=== PATIENT | female | born 1955 | race Caucasian/White ===

== ENCOUNTER 2018-01-16 02:40 | Outpatient (RCR) | payer OTHER, SELFPAY ==
[2018-01-16] MEDS: Normal Saline Flush 10 ML SYR IVP (07:30)
[2018-01-16 07:48] LABS: Abs Immature Grans 0.01 k/cumm (0.0-0.09); Absolute Basophil Count 0.02 k/cumm (0.0-0.2); Absolute Eosinophil Count 0.08 k/cumm (0.0-0.7); Absolute Lymphocyte Count 0.72 k/cumm (1.2-3.4); Absolute Monocyte Count 0.47 k/cumm (0.11-0.7); Absolute Neutrophil Count 2.67 k/cumm (1.2-6.7); Basophils % 0.5; HGB 9.9 g/dL (12.0-15.5); Immature Grans % 0.3; Lymphocytes % 18.1; Mean Corpuscular Hemoglobin 37.8 pg (27.0-33.0); Mean Corpuscular Volume 114.5 fL (80-95); Mean Platelet Volume 9.3 fL (8.0-11.0); Monocytes % 11.8; Neutrophils % 67.3; Platelet Count 138 x1000/uL (130-400); RBC 2.62 m/cumm (4.00-5.20); RBC Distribution Width 15.8 % (11.7-14.6); White Blood Cell Count 3.97 k/cumm (4.4-10.8)
[2018-01-16 08:02] LABS: ALT 15 U/L (12-78); AST 14 U/L (15-37); Albumin 3.5 g/dL (3.4-5.0); Alkaline Phosphatase 60 U/L (46-116); Anion Gap 6.9 mmol/L (3-11); BUN 7 mg/dL (7-18); Bilirubin, Total 0.7 mg/dL (0.2-1.0); CO2 29.1 mmol/L (21.0-32.0); Chloride 103 mmol/L (98-107); Glucose 114 mg/dL (70-100); Magnesium 1.8 mg/dL (1.8-2.4); Potassium 3.5 mmol/L (3.5-5.1); Sodium 139 mmol/L (136-145); Total Protein 7.7 g/dL (6.4-8.2)
[2018-01-16 08:19] LABS: Anisocytosis 1+; Diff Comment RBC Morph Reviewed; Macrocytosis 1+; Polychromasia Present
[2018-01-16 08:20] LABS: Basophilic Stippling Present
[2018-02-06] MEDS: Normal Saline Flush 10 ML SYR IVP (07:35)
[2018-02-06 08:09] LABS: Abs Immature Grans 0.01 k/cumm (0.0-0.09); Absolute Basophil Count 0.01 k/cumm (0.0-0.2); Absolute Eosinophil Count 0.01 k/cumm (0.0-0.7); Absolute Monocyte Count 0.62 k/cumm (0.11-0.7); Absolute Neutrophil Count 1.49 k/cumm (1.2-6.7); Basophils % 0.3; Eosinophils % 0.3; HCT 25.2 % (36.0-46.0); HGB 8.3 g/dL (12.0-15.5); Lymphocytes % 27.2; Mean Corp. HGB Concentration 32.9 g/dL (32.0-36.0); Mean Corpuscular Hemoglobin 38.4 pg (27.0-33.0); Mean Corpuscular Volume 116.7 fL (80-95); Mean Platelet Volume 9.4 fL (8.0-11.0); Monocytes % 21.1; Neutrophils % 50.8; Platelet Count 101 x1000/uL (130-400); RBC 2.16 m/cumm (4.00-5.20); RBC Distribution Width 16.4 % (11.7-14.6); White Blood Cell Count 2.94 k/cumm (4.4-10.8)
[2018-02-06 08:20] LABS: ALT 14 U/L (12-78); AST 15 U/L (15-37); Albumin 3.4 g/dL (3.4-5.0); Alkaline Phosphatase 51 U/L (46-116); Anion Gap 5.9 mmol/L (3-11); BUN 9 mg/dL (7-18); Bilirubin, Total 0.6 mg/dL (0.2-1.0); CO2 30.1 mmol/L (21.0-32.0); CREATININE 0.75 mg/dL (0.55-1.02); Calcium 8.6 mg/dL (8.5-10.1); Chloride 103 mmol/L (98-107); Glucose 107 mg/dL (70-100); Magnesium 1.4 mg/dL (1.8-2.4); Potassium 3.7 mmol/L (3.5-5.1); Sodium 139 mmol/L (136-145); Total Protein 7.5 g/dL (6.4-8.2)
[2018-02-06 08:47] LABS: Basophilic Stippling Present; Diff Comment Diff Reviewed; Hypochromasia 2+; Macrocytosis 2+; Polychromasia Present
[2018-02-06 08:48] LABS: Poikilocytes 2+
== END 2018-02-10 ==
LOC: INF 02-06 02:40
PROVIDERS: PCP Family Medicine; Visit Provider Internal Medicine Medical Oncology
DX: C37 Malignant neoplasm of thymus (principal); Z45.2 Encounter for adjustment and management of vascular access device
CPT/HCPCS: 36591; 80053; 83735; 85025

== ENCOUNTER 2018-02-27 01:03 | Outpatient (RCR) | payer OTHER, SELFPAY ==
[2018-02-27] MEDS: Normal Saline Flush 10 ML SYR IVP (07:30)
[2018-02-27 07:55] LABS: Abs Immature Grans 0.01 k/cumm (0.0-0.09); Absolute Basophil Count 0.01 k/cumm (0.0-0.2); Absolute Eosinophil Count 0.01 k/cumm (0.0-0.7); Absolute Lymphocyte Count 0.75 k/cumm (1.2-3.4); Absolute Monocyte Count 0.76 k/cumm (0.11-0.7); Absolute Neutrophil Count 1.57 k/cumm (1.2-6.7); Basophils % 0.3; Eosinophils % 0.3; Immature Grans % 0.3; Lymphocytes % 24.1; Mean Corpuscular Hemoglobin 39.8 pg (27.0-33.0); Mean Corpuscular Volume 120.5 fL (80-95); Monocytes % 24.4; Neutrophils % 50.6; Platelet Count 100 x1000/uL (130-400); RBC 1.66 m/cumm (4.00-5.20); RBC Distribution Width 17.4 % (11.7-14.6); White Blood Cell Count 3.11 k/cumm (4.4-10.8)
[2018-02-27 07:58] LABS: ALT 14 U/L (12-78); AST 13 U/L (15-37); Albumin 3.4 g/dL (3.4-5.0); Alkaline Phosphatase 54 U/L (46-116); Anion Gap 8.2 mmol/L (3-11); BUN 9 mg/dL (7-18); Bilirubin, Total 0.5 mg/dL (0.2-1.0); CO2 28.8 mmol/L (21.0-32.0); CREATININE 0.81 mg/dL (0.55-1.02); Calcium 8.8 mg/dL (8.5-10.1); Chloride 103 mmol/L (98-107); Glucose 111 mg/dL (70-100); Magnesium 1.2 mg/dL (1.8-2.4); Potassium 3.8 mmol/L (3.5-5.1); Sodium 140 mmol/L (136-145); Total Protein 7.4 g/dL (6.4-8.2)
[2018-02-27 08:06] LABS: HGB 6.6 g/dL (12.0-15.5)
== END 2018-03-12 23:59 | disposition home or self-care (01) ==
LOC: INF 01:03
PROVIDERS: PCP Family Medicine; Visit Provider Internal Medicine Medical Oncology
DX: C37 Malignant neoplasm of thymus (principal); Z45.2 Encounter for adjustment and management of vascular access device
CPT/HCPCS: 36591; 80053; 83735; 85025

== ENCOUNTER 2018-03-27 01:27 | Outpatient (RCR) | payer OTHER, SELFPAY ==
[2018-03-17] MEDS: Normal Saline Flush 10 ML SYR IVP (07:20)
[2018-03-17] MEDS: Heparin 500 UNITS/5 ML SYRINGE IV (07:20)
[2018-03-17 07:51] LABS: Abs Immature Grans 0.01 k/cumm (0.0-0.09); Absolute Basophil Count 0.01 k/cumm (0.0-0.2); Absolute Eosinophil Count 0.02 k/cumm (0.0-0.7); Absolute Lymphocyte Count 0.78 k/cumm (1.2-3.4); Absolute Monocyte Count 0.71 k/cumm (0.11-0.7); Absolute Neutrophil Count 2.85 k/cumm (1.2-6.7); Basophils % 0.2; Eosinophils % 0.5; Immature Grans % 0.2; Lymphocytes % 17.8; Mean Corp. HGB Concentration 33.5 g/dL (32.0-36.0); Mean Corpuscular Hemoglobin 37.9 pg (27.0-33.0); Mean Platelet Volume 10.1 fL (8.0-11.0); Monocytes % 16.2; Neutrophils % 65.1; RBC 1.61 m/cumm (4.00-5.20); RBC Distribution Width 19.9 % (11.7-14.6); White Blood Cell Count 4.38 k/cumm (4.4-10.8)
[2018-03-17 08:03] LABS: ALT 17 U/L (12-78); AST 13 U/L (15-37); Albumin 3.3 g/dL (3.4-5.0); Alkaline Phosphatase 59 U/L (46-116); Anion Gap 8.5 mmol/L (3-11); BUN 9 mg/dL (7-18); Bilirubin, Total 0.5 mg/dL (0.2-1.0); CO2 28.5 mmol/L (21.0-32.0); CREATININE 0.67 mg/dL (0.55-1.02); Calcium 8.9 mg/dL (8.5-10.1); Chloride 102 mmol/L (98-107); Glucose 119 mg/dL (70-100); Magnesium 1.5 mg/dL (1.8-2.4); Potassium 3.8 mmol/L (3.5-5.1); Sodium 139 mmol/L (136-145); Total Protein 7.3 g/dL (6.4-8.2)
[2018-03-17 08:09] LABS: HGB 6.1 g/dL (12.0-15.5)
[2018-03-17 08:10] LABS: Anisocytosis 2+; Basophilic Stippling Present; HCT 18.2 % (36.0-46.0); Platelet Count 67 x1000/uL (130-400)
[2018-03-17 08:11] LABS: Diff Comment Diff Reviewed; Macrocytosis 2+; Microcytosis 1+; Polychromasia Present
[2018-03-27 08:30] LABS: Abs Immature Grans 0.01 k/cumm (0.0-0.09); Absolute Basophil Count 0.01 k/cumm (0.0-0.2); Absolute Eosinophil Count 0.03 k/cumm (0.0-0.7); Absolute Lymphocyte Count 0.73 k/cumm (1.2-3.4); Absolute Monocyte Count 0.66 k/cumm (0.11-0.7); Absolute Neutrophil Count 1.93 k/cumm (1.2-6.7); Basophils % 0.3; Eosinophils % 0.9; HCT 24.6 % (36.0-46.0); HGB 7.9 g/dL (12.0-15.5); Immature Grans % 0.3; Lymphocytes % 21.7; Mean Corp. HGB Concentration 32.1 g/dL (32.0-36.0); Mean Corpuscular Hemoglobin 35.9 pg (27.0-33.0); Mean Corpuscular Volume 111.8 fL (80-95); Monocytes % 19.6; Neutrophils % 57.2; Platelet Count 115 x1000/uL (130-400); RBC Distribution Width 21.8 % (11.7-14.6); White Blood Cell Count 3.37 k/cumm (4.4-10.8)
[2018-03-27 08:54] LABS: ALT 16 U/L (12-78); AST 14 U/L (15-37); Albumin 3.4 g/dL (3.4-5.0); Alkaline Phosphatase 58 U/L (46-116); Anion Gap 9.2 mmol/L (3-11); BUN 12 mg/dL (7-18); Bilirubin, Total 0.6 mg/dL (0.2-1.0); CO2 28.8 mmol/L (21.0-32.0); CREATININE 0.77 mg/dL (0.55-1.02); Calcium 8.6 mg/dL (8.5-10.1); Chloride 102 mmol/L (98-107); Glucose 129 mg/dL (70-100); Potassium 3.4 mmol/L (3.5-5.1); Sodium 140 mmol/L (136-145); Total Protein 7.5 g/dL (6.4-8.2)
[2018-03-27 09:34] LABS: Magnesium 1.5 mg/dL (1.8-2.4)
[2018-03-27] MEDS: Normal Saline Flush 10 ML SYR IVP (15:01)
== END 2018-04-12 23:59 | disposition home or self-care (01) ==
LOC: INF 01:27
PROVIDERS: PCP Family Medicine; Visit Provider Internal Medicine Medical Oncology
DX: C37 Malignant neoplasm of thymus (principal); Z45.2 Encounter for adjustment and management of vascular access device
CPT/HCPCS: 36591; 80053; 83735; 85025

== ENCOUNTER 2018-05-12 00:50 | Outpatient (RCR) | payer OTHER, SELFPAY ==
[2018-05-12 08:06] LABS: Abs Immature Grans 0.02 k/cumm (0.0-0.09); Absolute Basophil Count 0.01 k/cumm (0.0-0.2); Absolute Eosinophil Count 0.05 k/cumm (0.0-0.7); Absolute Lymphocyte Count 0.66 k/cumm (1.2-3.4); Absolute Monocyte Count 0.46 k/cumm (0.11-0.7); Absolute Neutrophil Count 2.45 k/cumm (1.2-6.7); Basophils % 0.3; Eosinophils % 1.4; HCT 21.2 % (36.0-46.0); HGB 7.2 g/dL (12.0-15.5); Immature Grans % 0.5; Lymphocytes % 18.1; Mean Corpuscular Hemoglobin 37.5 pg (27.0-33.0); Mean Corpuscular Volume 110.4 fL (80-95); Mean Platelet Volume 11.1 fL (8.0-11.0); Monocytes % 12.6; Neutrophils % 67.1; Platelet Count 66 x1000/uL (130-400); RBC 1.92 m/cumm (4.00-5.20); White Blood Cell Count 3.65 k/cumm (4.4-10.8)
[2018-05-12 08:11] LABS: ALT 19 U/L (12-78); AST 15 U/L (15-37); Albumin 3.3 g/dL (3.4-5.0); Alkaline Phosphatase 53 U/L (46-116); Anion Gap 8.3 mmol/L (3-11); BUN 11 mg/dL (7-18); Bilirubin, Total 0.5 mg/dL (0.2-1.0); CO2 29.7 mmol/L (21.0-32.0); CREATININE 0.66 mg/dL (0.55-1.02); Calcium 8.8 mg/dL (8.5-10.1); Chloride 101 mmol/L (98-107); Glucose 119 mg/dL (70-100); Magnesium 1.1 mg/dL (1.8-2.4); Potassium 3.5 mmol/L (3.5-5.1); Sodium 139 mmol/L (136-145); Total Protein 7.5 g/dL (6.4-8.2)
[2018-05-12] MEDS: Heparin 500 UNITS/5 ML SYRINGE IV (08:24)
[2018-05-12] MEDS: Normal Saline Flush 10 ML SYR IVP (08:24)
[2018-05-12 09:35] LABS: Anisocytosis 3+; Diff Comment RBC Morph Reviewed; Macrocytosis 2+; Polychromasia Present
== END 2018-05-12 23:59 | disposition home or self-care (01) ==
LOC: INF 00:50
PROVIDERS: Internal Medicine Hematology & Oncology; PCP Family Medicine; Visit Provider Internal Medicine Medical Oncology
DX: C37 Malignant neoplasm of thymus (principal); Z45.2 Encounter for adjustment and management of vascular access device
CPT/HCPCS: 36591; 80053; 83735; 85025

== ENCOUNTER 2018-06-09 01:37 | Outpatient (RCR) | payer OTHER, SELFPAY ==
[2018-05-22] MEDS: Normal Saline Flush 10 ML SYR IVP (07:12)
[2018-05-22 07:23] LABS: Abs Immature Grans 0.01 k/cumm (0.0-0.09); Absolute Basophil Count 0.01 k/cumm (0.0-0.2); Absolute Eosinophil Count 0.02 k/cumm (0.0-0.7); Absolute Lymphocyte Count 0.73 k/cumm (1.2-3.4); Absolute Monocyte Count 0.51 k/cumm (0.11-0.7); Absolute Neutrophil Count 1.71 k/cumm (1.2-6.7); Basophils % 0.3; Eosinophils % 0.7; Immature Grans % 0.3; Lymphocytes % 24.4; Mean Corp. HGB Concentration 33.3 g/dL (32.0-36.0); Mean Corpuscular Hemoglobin 35.4 pg (27.0-33.0); Mean Corpuscular Volume 106.3 fL (80-95); Mean Platelet Volume 9.7 fL (8.0-11.0); Monocytes % 17.1; Neutrophils % 57.2; Platelet Count 101 x1000/uL (130-400); RBC 2.54 m/cumm (4.00-5.20); White Blood Cell Count 2.99 k/cumm (4.4-10.8)
[2018-05-22 07:36] LABS: ALT 20 U/L (12-78); AST 14 U/L (15-37); Albumin 3.4 g/dL (3.4-5.0); Alkaline Phosphatase 50 U/L (46-116); Anion Gap 9.9 mmol/L (3-11); BUN 18 mg/dL (7-18); Bilirubin, Total 0.6 mg/dL (0.2-1.0); CO2 29.1 mmol/L (21.0-32.0); CREATININE 0.86 mg/dL (0.55-1.02); Calcium 9.1 mg/dL (8.5-10.1); Chloride 101 mmol/L (98-107); Glucose 111 mg/dL (70-100); Potassium 3.9 mmol/L (3.5-5.1); Sodium 140 mmol/L (136-145); Total Protein 7.5 g/dL (6.4-8.2)
[2018-05-22 07:56] LABS: Anisocytosis 3+; Diff Comment Agrees w/ Instrument; Macrocytosis 2+; Nucleated RBC 1 /100WBC; Polychromasia Present
[2018-05-22 08:57] LABS: Magnesium 1.5 mg/dL (1.8-2.4)
== END 2018-06-12 23:59 | disposition home or self-care (01) ==
LOC: INF 01:37
PROVIDERS: Internal Medicine Hematology & Oncology; PCP Family Medicine; Visit Provider Internal Medicine Hematology & Oncology
DX: C37 Malignant neoplasm of thymus (principal); Z45.2 Encounter for adjustment and management of vascular access device
CPT/HCPCS: 36591; 80053; 83735; 85025

== ENCOUNTER 2018-08-04 00:58 | Outpatient (RCR) | payer OTHER, SELFPAY | END 2018-08-10 23:59 | disposition home or self-care (01) | LOC: INF 00:58 | PROVIDERS: PCP Family Medicine; Visit Provider Internal Medicine Hematology & Oncology | DX: R69 Illness, unspecified (principal) ==

== ENCOUNTER 2019-11-09 10:29 | Outpatient (REF) | payer OTHER, SELFPAY ==
[2019-11-09 10:43] LABS: Abs Immature Grans 0.03 k/cumm (0.0-0.09); Absolute Basophil Count 0.01 k/cumm (0.0-0.2); Absolute Eosinophil Count 0.09 k/cumm (0.0-0.7); Absolute Lymphocyte Count 0.88 k/cumm (1.2-3.4); Absolute Monocyte Count 0.66 k/cumm (0.11-0.7); Absolute Neutrophil Count 3.91 k/cumm (1.2-6.7); Basophils % 0.2; Eosinophils % 1.6; HCT 33.2 % (36.0-46.0); HGB 10.3 g/dL (12.0-15.5); Immature Grans % 0.5 %; Lymphocytes % 15.8; Mean Corpuscular Hemoglobin 31.2 pg (27.0-33.0); Mean Corpuscular Volume 100.6 fL (80-95); Monocytes % 11.8; Neutrophils % 70.1; Platelet Count 193 x1000/uL (130-400); RBC Distribution Width 17.8 % (11.7-14.6); White Blood Cell Count 5.58 k/cumm (4.4-10.8)
== END 2019-11-09 10:49 ==
LOC: LBN 10:29
PROVIDERS: PCP Family Medicine; Visit Provider Internal Medicine Hematology & Oncology
DX: C37 Malignant neoplasm of thymus (principal)
CPT/HCPCS: 85025

== ENCOUNTER 2021-05-01 12:26 | Outpatient (RCR) | payer MEDICARE, SELFPAY ==
[2021-05-01] MEDS: Normal Saline Flush 10 ML SYR IVP (12:37)
[2021-05-01] MEDS: Heparin 500 UNITS/5 ML SYRINGE IVP (12:38)
[2021-05-01 12:42] LABS: Abs Immature Grans 0.06 10^3/uL (0.0-0.06); Absolute Basophil Count 0.03 10^3/uL (0.0-0.2); Absolute Eosinophil Count 0.04 10^3/uL (0.0-0.7); Absolute Lymphocyte Count 0.81 10^3/uL (1.2-3.4); Absolute Monocyte Count 1.01 10^3/uL (0.1-0.8); Absolute Neutrophil Count 4.48 10^3/uL (1.2-6.7); Basophils % 0.5; Eosinophils % 0.6; HCT 36.7 % (36.0-46.0); Immature Grans % 0.9; Lymphocytes % 12.6; MCH 37.5 pg (27.0-33.0); MCHC 35.4 % (32.0-36.0); MCV 105.8 fL (80-95); MPV 10.3 fL (8.0-11.0); Monocytes % 15.7; Neutrophils % 69.7; Nucleated RBC 0 %; Platelet Count 197 10^3/uL (130-400); RBC 3.47 10^6/uL (3.93-5.22); RDW 13.9 % (11.7-14.6); RDW-SD 54.6 fL; Reticulocyte 2.5 % (0.5-2.4); WBC 6.43 10^3/uL (4.4-10.8)
[2021-05-01 12:50] LABS: Anion Gap 9.1 mmol/L (3-11); BUN 56 mg/dL (7-18); CO2 28.9 mmol/L (21.0-32.0); Calcium 8.8 mg/dL (8.5-10.1); Chloride 93 mmol/L (98-107); Estimated GFR 25.16 (mL/min/1.73m2); Glucose 98 mg/dL (74-106); Potassium 3.2 mmol/L (3.5-5.1); Sodium 131 mmol/L (136-145)
[2021-05-01 16:20] LABS: Bilirubin, Direct 0.3 mg/dL (0.0-0.2); Bilirubin, Total 0.7 mg/dL (0.2-1.0)
== END 2021-05-12 23:59 | disposition home or self-care (01) ==
LOC: INF 12:26
PROVIDERS: PCP Family Medicine; Visit Provider Internal Medicine Hematology & Oncology
DX: C37 Malignant neoplasm of thymus (principal); D75.1 Secondary polycythemia; E80.6 Other disorders of bilirubin metabolism; Z45.2 Encounter for adjustment and management of vascular access device
CPT/HCPCS: 36591; 80048; 82668; 82247; 82248; 85025; 85045

== ENCOUNTER 2021-08-21 03:22 | Outpatient (RCR) | payer MEDICARE, SELFPAY ==
[2021-08-21] MEDS: Heparin 500 UNITS/5 ML SYRINGE (14:38)
[2021-08-21] MEDS: Normal Saline Flush 10 ML SYR IVP (14:38)
[2021-08-21 14:46] LABS: Abs Immature Grans 0.01 10^3/uL (0.0-0.06); Absolute Basophil Count 0.04 10^3/uL (0.0-0.2); Absolute Eosinophil Count 0.29 10^3/uL (0.0-0.7); Absolute Lymphocyte Count 1.14 10^3/uL (1.2-3.4); Absolute Monocyte Count 0.67 10^3/uL (0.1-0.8); Basophils % 0.9; Eosinophils % 6.7; HCT 45.5 % (36.0-46.0); HGB 15.9 g/dL (11.2-15.7); Immature Grans % 0.2; Lymphocytes % 26.2; MCH 36.1 pg (27.0-33.0); MCHC 34.9 % (32.0-36.0); MCV 103.2 fL (80-95); Monocytes % 15.4; Neutrophils % 50.6; Nucleated RBC 0 %; Platelet Count 144 10^3/uL (130-400); RBC 4.41 10^6/uL (3.93-5.22); RDW 13.6 % (11.7-14.6); RDW-SD 52.3 fL; WBC 4.35 10^3/uL (4.4-10.8)
[2021-08-21 15:10] LABS: ALT 15 U/L (14-59); AST 30 U/L (15-37); Alkaline Phosphatase 64 U/L (46-116); Anion Gap 9.1 mmol/L (3-11); BUN 15 mg/dL (7-18); Bilirubin, Total 1.1 mg/dL (0.2-1.0); CO2 25.9 mmol/L (21.0-32.0); Chloride 97 mmol/L (98-107); Estimated GFR 55.82 (mL/min/1.73m2); FREE T4 1.31 ng/dL (0.76-1.46); Glucose 89 mg/dL (74-106); Magnesium 1.5 mg/dL (1.8-2.4); Potassium 3.7 mmol/L (3.5-5.1); Sodium 132 mmol/L (136-145); TSH 15.28 uIU/mL (0.36-3.74); Total Protein 6.7 g/dL (6.4-8.2)
[2021-08-25 16:34] LABS: Erythropoietin 52.3 mIU/mL (2.6 - 18.5)
== END 2021-09-10 23:59 | disposition home or self-care (01) ==
LOC: INF 03:22
PROVIDERS: PCP Family Medicine; Visit Provider Internal Medicine Hematology & Oncology
DX: E03.9 Hypothyroidism, unspecified (principal); C37 Malignant neoplasm of thymus; D75.1 Secondary polycythemia; E83.42 Hypomagnesemia; Z45.2 Encounter for adjustment and management of vascular access device
CPT/HCPCS: 36591; 80053; 82668; 83735; 84439; 84443; 85025

== ENCOUNTER 2024-03-09 01:35 | Outpatient (RCR) | payer MEDICARE, SELFPAY ==
--- OUTSIDE RECORDS SUMMARY | 2024-02-24 01:11 | XMS_ITS | Continuity of Care Document ---
Author Organization [facility] Address [address] [place] [address] Care Team Providers Care Catholic Priest Name Role Phone Jerzy Vidal Primary Care Physician [phone] Encounter [facility] Date(s): 03/09/22 - 03/09/[address] [address] Discharge Disposition: Home or Self Care Attending Physician: Shon Schneider Admitting Physician: Shon Schneider Referring Physician: Shon Schneider Allergies, Adverse Reactions, Alerts Substance Reaction Severity Status penicillins Unknown Active CARBOplatin Unknown Active Immunizations Given and Recorded Vaccine Date Status Refusal Reason SARS-CoV-2 (COVID-19) mRNA-1273 vaccine 09/26/20 R ecorded SARS-CoV-2 (COVID-19) mRNA-1273 vaccine 08/28/20 R ecorded pneumococcal 23-polyvalent vaccine 05/17/14 Record ed tetanus/diphth/pertuss (Tdap) adult/adol 03/08/14 Recorded influenza virus vaccine, inactivated 03/08/14 Victor M rded Medications DilTIAZem (Eqv-Tiazac) 240 mg/24 hours oral capsule, extended release 240 mg = 1 cap, Oral, Daily Start Date: 11/25/21 Status: Ordered Eliquis 5 mg oral tablet 5 mg = 1 tab, Oral, BID Start Date: 11/25/21 Status: Ordered levothyroxine 150 mcg (0.15 mg) oral tablet 150 mcg = 1 tab, Oral, Daily Start Date: 11/25/21 Status: Ordered magnesium oxide 400 mg (241.3 mg elemental magnesium) oral tablet 400 mg = 1 tab, Oral, TID Start Date: 11/25/21 Status: Ordered Problem List Condition Effective Dates Status Health Status Inform ant Bradycardia(Confirmed) Active Chronic atrial fibrillation(Confirmed) Active Constipation(Confirmed) Active Dyspnea(Confirmed) Active Hypertensive disorder(Confirmed) Active Hypokalemia(Confirmed) 03/09/18 Active Hypomagnesemia(Confirmed) 03/09/18 Active Lump in left breast(Confirmed) Active 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 Morbid obesity(Confirmed) Active Pain(Confirmed) Active 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/04/19 Active Snoring(Confirmed) Active Procedures Procedure Date Related Diagnosis Body Site Status Thoracentesis 1 08/18/20 Completed Biopsy of breast 03/24/17 Complete d Laparoscopy 2 06/12/01 Completed Elective delivery 3 Completed Hernia repair umbilical 4 Completed 1550 mL clear yellow fluid removed from left side 2Exploratory Laparotomy w/ Appendectomy and Drainage of Intraabdominal Abscess 3X2 71215 Social History Social History Type Response Smoking Status Smoking tobacco use: Never tobacco user;Never entered on: 11/23/21 Sex Female Patient Care team information Personnel Name: Jerzy Vidal MD Address: Address: [address]
--- OUTSIDE RECORDS SUMMARY | 2024-02-24 01:11 | XMS_ITS | Continuity of Care Document ---
Author Organization [facility] Address [address] [place] [address] Care Team Providers Care Preschool Head Teacher Name Role Phone Jerzy Vidal Primary Care Physician [phone] Encounter [facility] Date(s): 09/15/22 - 09/15/[address] [address] Discharge Disposition: Home or Self Care Attending Physician: Shon Schneider MD Admitting Physician: Shon Schneider MD Referring Physician: Shon Schneider MD Allergies, Adverse Reactions, Alerts Substance Reaction Severity [...] 240 mg/24 hours oral capsule, extended release 1 cap, Oral, Daily, # 90 cap, 0 Refill(s), Pharmacy: [facility] #[id number], 173, cm, 04/12/22 13:04:00 EDT, Height/Length Dosing, 108, kg, 04/12/22 13:04:00 EDT, Weight Dosing Start Date: 08/09/22 Status: Ordered Eliquis 5 mg oral tablet 1 tab, Oral, BID, # 180 tab, 0 Refill(s), Pharmacy: [facility] #[id number], 173, cm, 04/12/22 13:04:00 EDT, Height/Length Dosing, 108, kg, 04/12/22 13:04:00 EDT, Weight Dosing Start Date: 08/09/22 Status: Ordered levothyroxine 150 mcg (0.15 mg) oral tablet 150 mcg = 1 tab, Oral, Daily Start Date: 11/25/21 Status: Ordered magnesium oxide 400 mg (241.3 mg elemental magnesium) oral tablet 400 mg = 1 tab, Oral, TID Start Date: 11/25/21 Status: Ordered potassium acetate 0 Refill(s) Start Date: 04/02/22 Status: Ordered Problem List Condition Confirmation Course Effective Dates Status H ealth Status Informant Bradycardia Confirmed Active Chronic atrial fibrillation Confirmed Active Constipation Confirmed Active Dyspnea Confirmed Active Hypertensive disorder Confirmed Active Hypokalemia Confirmed 03/09/18 Active Hypomagnesemia Confirmed 03/09/18 Active Lump in left breast Confirmed Active 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 Morbid obesity Confirmed Active Pain Confirmed Active 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 Snoring Confirmed Active Procedures Procedure Date Related Diagnosis Body Site Status Thoracentesis 04/11/22 Completed Thoracentesis 1 08/18/20 Completed Biopsy of breast 03/24/17 Complete d Laparoscopy 2 06/12/01 Completed Elective delivery 3 Completed Hernia repair umbilical 4 Completed Venous access device maintenance 5 Completed 1550 mL clear yellow fluid removed from left side 2Exploratory Laparotomy w/ Appendectomy and Drainage of Intraabdominal Abscess 3X2 [id number] 5POWER PORT Results Laboratory List Name Date .Manual Differential ([facility]) 09/15/22 CBC w/ Diff 09/15/22 Comprehensive Metabolic Panel 09/15/22 Free T4 09/15/22 Magnesium Level 09/15/22 Thyroid Stimulating Hormone 09/15/22 Most recent to oldest [Reference Range]: 1 WBC [5.0-10.0 x10^3/mcL] 5.5 x10^3/mcL (09/15/22 11:55 AM) RBC [4.1-5.3 x10^6/mcL] 3.2 x10^6/mcL *LOW* (09/15/22 11:55 AM) Segs Man [40-75 %] 78 % *HI* (09/15/22 11:55 AM) Lymph Man [20-50 %] 8 % *LOW* (09/15/22 11: AM) Slope Man 13 % *NA* (09/15/22 AM) Eos Man 0 % *NA* (09/15/22: AM) BUN [7-18 mg/dL] 26 mg/dL *HI* (09/15/22 11: AM) Glucose Level [74-106 mg/dL] 107 mg/dL *HI* (09/15/22 11: AM) Potassium Level [3.5-5.1 mmol/L] 3.1 mmo l/L *LOW* (09/15/22: AM) MCV [80.0-96.0] 107.8 *HI* (09/15/22: AM) RBC Morph Abnormal (09/15/22:) T4 Free [0.76-1.46 ng/dL] 1.39 ng/dL (09/15/22 AM) AST [15-37 unit/L] 21 unit/L (09/15/22: AM) ALT [14-59 unit/L] 11 unit/L *LOW* (09/15/22: AM) MCHC [31.0-35.0 g/dL] 29.0 g/dL *LOW* (09/15/22 11: AM) Sodium Level [136-145 mmol/L] 137 mmol/L (09/15/22 11: AM) Hct [37.0-47.0 %] 34.5 % *LOW* (09/15/22 AM) Calcium Level [8.5-10.1 mg/dL] 9.4 mg/dL (09/15/22 11: AM) Albumin Level [3.4-5.0 g/dL] 3.1 g/dL *LOW* (09/15/22 11: AM) Protein Total [6.4-8.2 g/dL] 8.6 g/dL *HI* (09/15/22 11: AM) MCH [26.0-32.0 pg] 31.3 pg (09/15/22 11: AM) Magnesium Level [1.8-2.4 mg/dL] 1.7 mg/d L *LOW* (09/15/22 11:55 AM) Bilirubin Total [0.2-1.0 mg/dL] 1.2 mg/d L *HI* (09/15/22 11:55 AM) Hgb [12.0-16.0 g/dL] 10.0 g/dL *LOW* (09/15/22 11: AM) Alk Phos [46-146 unit/L] 66 unit/L (09/15/22 11:55 AM) Band Man [0-5 %] 0 % (09/15/22 11: AM) Polychrom Small (09/15/22: AM) Platelets [130-450 x10^3/mcL] 168 x10^3/ mcL (09/15/22 11:55 AM) CO2 [21-32 mmol/L] 31 mmol/L (09/15/22 11: AM) TSH [0.358-3.740 mcIntlUnit/mL] 5.418 mc IntlUnit/mL *HI* (09/15/22 11:55 AM) eGFR Non-AA [>=60] 47 *LOW* (09/15/22 11:55 AM) eGFR AA [>=60] 47 *LOW* (09/15/22 11:55 AM) Chloride Level [98-107 mmol/L] 98 mmol/L (09/15/22 11:55 AM) RDW-CV [11.7-17.0 %] 19.9 % *HI* (09/15/22 11:55 AM) Ovalocytes Rare (09/15/22 11:55 AM) Stomatocyte Rare (09/15/22 11:55 AM) Abs Neut Man 4.3 x10^3/mcL *NA* (09/15/22 11: AM) Anisocyte Small (09/15/22 11: AM) Creatinine Level [0.55-1.02 mg/dL] 1.27 mg/dL *HI* (09/15/22 11:55 AM) Baso Man [0-1 %] 1 % (09/15/22 11: AM) Social History Social History Type Response Smoking Status Smoking tobacco use: Never tobacco user;Never entered on: 04/08/22 Sex Female Patient Care team information Care Team Personnel Name: Jerzy Vidal MD Position: Physician Member Role: Informed Provider Address: Address: [address] Care Team Related Persons Name: FRANCOIS PIERRE Address: Home Name: FRANCOIS PIERRE Address: Home Name: CESAR KNOX Address: Home
--- OUTSIDE RECORDS SUMMARY | 2024-02-24 01:11 | XMS_ITS | Continuity of Care Document ---
Author Organization [facility] Address [address] [place] [address] Care Team Providers Care Manager Academic Name Role Phone Jerzy Vidal Primary Care Physician Encounter [facility] Date(s): 10/22/22 - 10/22/[address] [address] Discharge Disposition: Home or Self Care Attending Physician: Shon Schneider MD Admitting Physician: Shon Schneider MD Referring Physician: Shon Schneider MD Allergies, Adverse Reactions, Alerts Substance Reaction Severity Status penicillins Unknown Active CARBOplatin Unknown Active Assessment and Plan Diagnostic Tests Pending * Haptoglobin [facility] 10/22/22 Immunizations Given and Recorded Vaccine Date Status Refusal Reason SARS-CoV-2 (COVID-19) mRNA-1273 vaccine 09/26/20 R ecorded SARS-CoV-2 (COVID-19) mRNA-1273 vaccine 08/28/20 R ecorded pneumococcal 23-polyvalent vaccine 05/17/14 Record ed tetanus/diphth/pertuss (Tdap) adult/adol 03/08/14 Recorded influenza virus vaccine, inactivated 03/08/14 Victor M rded Medications DilTIAZem (Eqv-Tiazac) 240 mg/24 hours oral capsule, extended release 1 cap, Oral, Daily, # 90 cap, 0 Refill(s), Pharmacy: [facility] #[id number], 173, cm, 04/12/22 13:04:00 EDT, Height/Length Dosing, 108, kg, 04/12/22 13:04:00 EDT, Weight Dosing Start Date: 08/09/22 Status: Ordered Eliquis 5 mg oral tablet 1 tab, Oral, BID, # 180 tab, 0 Refill(s), Pharmacy: [facility] #[id number], 173, cm, 04/12/22 13:04:00 EDT, Height/Length [...] Appendectomy and Drainage of Intraabdominal Abscess 3X2 64045 5POWER PORT Results Laboratory List Name Date Reticulocyte Count Automated 10/22/22 Most recent to oldest [Reference Range]: 1 Reticulocyte % [0.5-2.4 %] <0.2 % *LOW* (10/22/22 10:57 AM) Social History Social History Type Response Smoking Status Smoking tobacco use: Never tobacco user;Never entered on: 04/08/22 Sex Female Patient Care team information Care Team Personnel Name: Jerzy Vidal MD Position: Physician Member Role: Informed Provider Address: Address: [address] Care Team Related Persons Name: FRANCOIS PIERRE Name: CESAR KNOX
--- OUTSIDE RECORDS SUMMARY | 2024-02-24 01:11 | XMS_ITS | Continuity of Care Document ---
Author Organization [facility] Address [address] [place] [address] Care Team Providers Care Is Analyst Name Role Phone Jerzy Vidal Primary Care Physician Encounter [facility] Date(s): 11/17/22 - 11/17/[address] [id number] Encounter Diagnosis Anemia(Discharge Diagnosis) - 11/17/22 Discharge Disposition: Home or Self Care Attending Physician: Gavi Cardoso MD Admitting Physician: Gavi Cardoso MD Referring Physician: Shon Schneider MD Allergies, Adverse Reactions, Alerts Substance Reaction Severity Status penicillins Unknown Active CARBOplatin Unknown Active Assessment and Plan Extracted from: Title:Clinical Document Author:Shirin Almonte te:11/18/22 Diagnosis: 1. Anemia Comment: Diagnosis: Abnormal laboratory findings Comment: Future Appointments Immunizations Given and Recorded Vaccine Date Status Refusal Reason SARS-CoV-2 (COVID-19) mRNA-1273 vaccine 09/26/20 R ecorded SARS-CoV-2 (COVID-19) mRNA-1273 vaccine 08/28/20 R ecorded pneumococcal 23-polyvalent vaccine 05/17/14 Record ed tetanus/diphth/pertuss (Tdap) adult/adol 03/08/14 Recorded influenza virus vaccine, inactivated 03/08/14 Victor M rded Medications aMILoride 5 mg oral tablet 0 Refill(s) Start Date: 11/17/22 Status: Ordered DilTIAZem (Eqv-Tiazac) 240 mg/24 hours oral capsule, extended release 1 cap, Oral, Daily, # 90 cap, 0 Refill(s), Pharmacy: [facility], 173, cm, 04/12/22 13:04:00 EDT, Height/Length Dosing, 108, kg, 04/12/22 13:04:00 EDT, Weight Dosing Start Date: 08/09/22 Status: Ordered Eliquis 5 mg oral tablet See Instructions, TAKE ONE TABLET BY MOUTH TWICE A DAY, # 180 tab, 0 Refill(s), Pharmacy: [facility], 173, cm, 10/22/22 10:35:00 EDT, Height/Length Dosing, 117, kg, 10/22/22 10:35:00 EDT, Weight Dosing Start Date: 11/14/22 Status: Ordered Eliquis 5 mg oral tablet 1 tab, Oral, BID, # 180 tab, 0 Refill(s), Pharmacy: [facility], 173, cm, 04/12/22 13:04:00 EDT, Height/Length Dosing, 108, kg, 04/12/22 13:04:00 EDT, Weight Dosing Start Date: 08/09/22 Status: Ordered furosemide 80 mg oral tablet 0 Refill(s) Start Date: 11/17/22 Status: Ordered levothyroxine 150 mcg (0.15 mg) [...] Effective Dates Status H ealth Status Informant Aortic valve stenosis Confirmed 2022 Active Bradycardia Confirmed Active Chronic atrial fibrillation Confirmed [...] Appendectomy and Drainage of Intraabdominal Abscess [id number] [id number] 5POWER PORT Results Laboratory List Name Date ABO/Rh 11/17/22 Antibody Screen Gel 11/17/22 Red Blood Cells 11/17/22 .Manual Differential ([facility]) 11/17/22 CBC w/ Diff 11/17/22 Comprehensive Metabolic Panel 11/17/22 Magnesium Level 11/17/22 Most recent to oldest [Reference Range]: 1 WBC [5.0-10.0 x10^3/mcL] 7.0 x10^3/mcL (11/17/22 12:13 PM) RBC [4.1-5.3 x10^6/mcL] 2.0 x10^6/mcL *LOW* (11/17/22 12:13 PM) Segs Man [40-75 %] 82 % *HI* (11/17/22 12:13 PM) Lymph Man [20-50 %] 13 % *LOW* (11/17/22 12:13 PM) [place] Man [2-15 %] 0 % *LOW* (11/17/22 12:13 PM) Eos Man [1-6 %] 4 % (11/17/22 12:13 PM) BUN [7-18 mg/dL] 18 mg/dL (11/17/22 12:13 PM) ABO/Rh Type A POS *Unknown* (11/17/22 3:24 PM) Glucose Level [74-106 mg/dL] 87 mg/dL (11/17/22 12:13 PM) Potassium Level [3.5-5.1 mmol/L] 3.3 mmo l/L *LOW* (11/17/22 12:13 PM) MCV [80.0-96.0 fL] 101.5 fL *HI* (11/17/22 12:13 PM) RBC Morph Abnormal (11/17/22 12:13 PM) AST [15-37 unit/L] 19 unit/L (11/17/22 12:13 PM) ALT [14-59 unit/L] 14 unit/L (11/17/22 12:13 PM) MCHC [31.0-35.0 g/dL] 30.9 g/dL *LOW* (11/17/22 12:13 PM) Sodium Level [136-145 mmol/L] 135 mmol/L *LOW* (11/17/22 12: PM) Hct [37.0-47.0 %] 20.4 % 1 *CRIT* (11/17/22 12:13 PM) Hypochromia Rare (11/17/22 12: PM) Calcium Level [8.5-10.1 mg/dL] 8.7 mg/dL (11/17/22: PM) Albumin Level [3.4-5.0 g/dL] 2.3 g/dL *LOW* (11/17/22 12: PM) Protein Total [6.4-8.2 g/dL] 7.9 g/dL (11/17/22: PM) MCH [26.0-32.0 pg] 31.3 pg (11/17/22 12: PM) Magnesium Level [1.8-2.4 mg/dL] 1.3 mg/d L *LOW* (11/17/22: PM) Bilirubin Total [0.2-1.0 mg/dL] 0.8 mg/d L (11/17/22 12:13 PM) Hgb [12.0-16.0 g/dL] 6.3 g/dL 2 *CRIT* (11/17/22 12:13 PM) Alk Phos [46-146 unit/L] 62 unit/L (11/17/22 12:13 PM) Band Man [0-5 %] 0 % (11/17/22 12: PM) Platelets [130-450 x10^3/mcL] 118 x10^3/ mcL *LOW* (11/17/22 12:13 PM) CO2 [21-32 mmol/L] 34 mmol/L *HI* (11/17/22 12: PM) eGFR Non-AA [>=60] 60 (11/17/22 12:13 PM) eGFR AA [>=60] 60 (11/17/22 12:13 PM) Chloride Level [98-107 mmol/L] 95 mmol/L *LOW* (11/17/22 12:13 PM) RBC Product Ready Done (11/17/22 3:24 PM) RDW-CV [11.5-14.5 %] 21.8 % *HI* (11/17/22 12:13 PM) Slide Review Man Diff (11/17/22 12:13 PM) Abs Neut Man 5.7 x10^3/mcL *NA* (11/17/22 12:13 PM) Anisocyte Small (11/17/22 12:13 PM) Creatinine Level [0.55-1.02 mg/dL] 1.03 mg/dL *HI* (11/17/22 12:13 PM) Antibody Screen Gel Negative ABSC (11/17/22 3:24 PM) Baso Man [0-1 %] 1 % (11/17/22 12:13 PM) 1Result Comment: Called to and verbally verified by Roxana Machuca at 11/17/2022 12:44:01 EDT. 2Result Comment: Called to and verbally verified by Roxana Machuca at 11/17/2022 12:44:01 EDT. Vital Signs Most recent to oldest [Reference Range]: 1 2 3 Temperature Temporal Artery [36-38 Deg C] 36.2 Deg C (11/17/22 10:12 PM) 36.5 Deg C (11/17/22 9:09 PM) 36.2 Deg C (11/17/22 8:03 PM) Temperature Temporal Artery (DegF) [97.3-100 Deg F] 97.16 Deg F *LOW* (11/17/22 8:03 PM) 97.7 Deg F (11/17/22 7:53 PM) 97.52 Deg F (11/17/22 4:55 PM) Peripheral Pulse Rate [60-100 bpm] 78 bpm (11/17/22 10:12 PM) 66 bpm (11/17/22 9:09 PM) 84 bpm (11/17/22 8:46 PM) Heart Rate Monitored [60-100 bpm] 83 bpm (11/17/22 7:53 PM) 80 bpm (11/17/22 7:16 PM) 75 bpm (11/17/22 6:25 PM) Respiratory Rate [12-24 br/min] 17 br/min (11/17/22 10:12 PM) 20 br/min (11/17/22 9:09 PM) 21 br/min (11/17/22 8:46 PM) Blood Pressure [90-140/60-90 mmHg] 105/61mmHg (11/17/22 10:12 PM) 105/68mmHg (11/17/22 9:09 PM) 96/54mmHg (11/17/22 8:46 PM) Weight Dosing 117.00 kg (11/17/22 3:06 PM) Weight Estimated 117.00 kg (11/17/22 2:23 PM) Height/Length Dosing 173.000 cm (11/17/22 3:06 PM) Height/Length Estimated 173.000 cm (11/17/22 2:23 PM) Social History Social History Type Response Smoking Status Smoking tobacco use: Never tobacco user;Never entered on: 04/08/22 Sex Female Hospital Discharge Instructions Patient Education 11/17/2022 21:03:58 Anemia Anemia Anemia is a condition in which there is not enough red blood cells or hemoglobin in the blood. Hemoglobin is a substance in red blood cells that carries oxygen. When you do not have enough red blood cells or hemoglobin (are anemic), your body cannot get enoughoxygen and your organs may not work properly. As a result, you may feel very tired or have other problems. What are the causes? Common causes of anemia include: ??? Excessive bleeding. Anemia can be caused by excessive bleeding inside or outside the body, including bleeding from the intestines or from heavy menstrual periods in females. ??? Poor nutrition. ??? Long-lasting (chronic) kidney, thyroid, and liver disease. ??? Bone marrow disorders, spleen problems, and blood disorders. ??? Cancer and treatments for cancer. ??? HIV (human immunodeficiency virus) and AIDS (acquired immunodeficiency syndrome). ??? Infections, medicines, and autoimmune disorders that destroy red blood cells. What are the signs or symptoms? Symptoms of this condition include: ??? Minor weakness. ??? Dizziness. ??? Headache, or difficulties concentrating and sleeping. ??? Heartbeats that feel irregular or faster than normal (palpitations). ??? Shortness of breath, especially with exercise. ??? Pale skin, lips, and nails, or cold hands and feet. ??? Indigestion and nausea. Symptoms may occur suddenly or develop slowly. If your anemia is mild, you may not have symptoms. How is this diagnosed? This condition is diagnosed based on blood tests, your medical history, and a physical exam. In some cases, a test may be needed in which cells are removed from the soft tissue inside of a bone and looked at under a microscope (bone marrow biopsy). Your health care provider may also check your stool (feces) for blood and may do additional testing to look for the cause of your bleeding. Other tests may include: ??? Imaging tests, such as a CT scan or MRI. ??? A procedure to see inside your esophagus and stomach (endoscopy). ??? A procedure to see inside your colon and rectum (colonoscopy). How is this treated? Treatment for this condition depends on the cause. If you continue to lose a lot of blood, you may need to be treated at a hospital. Treatment may include: ??? Taking supplements of iron, vitamin B12, or folic acid. ??? Taking a hormone medicine (erythropoietin) that can help to stimulate red blood cell growth. ??? Having a blood transfusion. This may be needed if you lose a lot of blood. ??? Making changes to your diet. ??? Having surgery to remove your spleen. Follow these instructions at home: ??? Take [id number]-ise-gfvyykd and prescription medicines only as told by your health care provider. ??? Take supplements only as told by your health care provider. ??? Follow any diet instructions that you were given by your health care provider. ??? Keep all follow-up visits as told by your health care provider. This is important. Contact a health care provider if: ??? You develop new bleeding anywhere in the body. Get help right away if: ??? You are very weak. ??? You are short of breath. ??? You have pain in your abdomen or chest. ??? You are dizzy or feel faint. ??? You have trouble concentrating. ??? You have bloody stools, black stools, or tarry stools. ??? You vomit repeatedly or you vomit up blood. These symptoms may represent a serious problem that is an emergency. Do not wait to see if the symptoms will go away. Get medical help right away. Call your local emergency services (911 in the [place] Do not drive yourself to the hospital. Summary ??? Anemia is a condition in which you do not have enough red blood cells or enough of a substance in your red blood cells that carries oxygen (hemoglobin). ??? Symptoms may occur suddenly or develop slowly. ??? If your anemia is mild, you may not have symptoms. ??? This condition is diagnosed with blood tests, a medical history, and a physical exam. Other tests may be needed. ??? Treatment for this condition depends on the cause of the anemia. This information is not intended to replace advice given to you by your health care provider. Make sure you discuss any questions you have with your health care provider. Document Revised: 05/06/2020 Document Reviewed: 05/06/2020 [employer] Patient Education ?? 2021 [employer]. Follow Up Care 11/17/2022 14:23:32 With:Follow up with primary care provider Address: When:1 to 2 weeks Physician Emergency department Note * Noni Walker MD: PERFORM Event Display: ED Note Physician Authored Date: [id number] BRAYAN PIERRE :1955 Age:67 years Sex:Female Visit Date:11/17/2022 Primary Care Physician: Jerzy Vidal MD Signout received from Dr. Chavez patient??sent in by oncologist due to anemia patient has received2??units of packed red blood cells??and is ready to go patient without complaints currently.?? Patient will return for any concerns. Diagnosis anemia Electronically Signed on 11/17/22 10:05 PM Noni Walker MD * Josh Chavez MD: PERFORM Event Display: ED Note Physician Authored Date: [id number] BRAYAN PIERRE :1955 Age:67 years Sex:Female Visit Date:11/17/2022 Primary Care Physician: Jerzy Vidal MD Basic Information Time Seen: Josh Chavez MD / 11/17/2022 15:02 Chief Complaint Pt sent in from oncologist at [facility] for 2 units pRBC d/t hemoglobin of 6.3 today. Pt denies SOB, dizziness, or weakness. 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 History Of Present Illness: ?? Comes for transfusion.Patient??recently discharged from [facility]. ??On chemotherapy.?? Hemoglobin low. Review of Systems: Negative for complaints in all body systems. Physical Exam Vitals & Measurements T:??36.2?C ??(Temporal Artery)?? HR:??84??(Peripheral)?? RR:??21?? BP:??96/54?? SpO2:??96%?? HT:??173.000??cm?? WT:??117.00??kg??(Estimated)?? Pain Score:??0?? O2 Therapy:??Room air?? No acute distress. ??Respirations normal. ??Chest auscultation shows an irregular rhythm with a systolic ejection murmur.?? Chest sounds are normal. Medical Decision Making: Complexity is minimal. ??Data complexity is minimal.?? Management risk are??minimal.?? MDM coding??98908. Procedure No Qualifying Data Assessment/Plan Diagnosis is??anemia secondary to chemotherapy. Medication Reconciliation Unchanged aMILoride (aMILoride 5 mg oral tablet) ?? apixaban (Eliquis 5 mg oral tablet)1 tab Oral (given by mouth) 2 times a day. Refills: 0. ?? apixaban (Eliquis 5 mg oral tablet)TAKE ONE TABLET BY MOUTH TWICE A DAY. Refills: 0. ?? dilTIAZem (DilTIAZem (Eqv-Tiazac) 240 mg/24 hours oral capsule, extended release)1 Capsules Oral (given by mouth) every day. Refills: 0. ?? furosemide (furosemide 80 mg oral tablet) ?? levothyroxine (levothyroxine 150 mcg (0.15 mg) oral tablet)1 tab Oral (given by mouth) every day. ?? magnesium oxide (magnesium oxide 400 mg (241.3 mg elemental magnesium) oral tablet)1 tab Oral (given by mouth) 3 times a day. ?? 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 Employment/School disability Home/Environment Lives with Children, Sons children. Substance Use Never Tobacco Never tobacco user Tobacco Use:. Never Smokeless Tobacco use:. Family History Arthritis: Father and Sister. Cancer: Mother. Hydrocephalus: Father (Dx at 77). Lab Results Transfusion Medicine Testing?? LATEST RESULTS?? HISTORICAL RESULTS?? ABO/Rh Type?? 11/17/22 15:24?? A POS?? 10/22/22?? A POS?? Antibody Screen Gel?? 11/17/22 15:24?? Negative ABSC?? 10/22/22?? Negative ABSC?? RBC Product Ready?? 11/17/22 15:24?? Done?? 10/22/22?? Done? Crossmatch Summary?? LATEST RESULTS?? XM AHG Gel Interp?? 11/17/22 15:24?? Compatible? Electronically Signed on 11/17/22 09:04 PM Josh Chavez MD Emergency department Discharge instructions * Noni Walker MD: PERFORM Event Display: ED Discharge Information Authored Date: [id number] BRAYAN PIERRE :1955 Age:67 years Sex:Female Visit Date:11/17/2022 Primary Care Physician: Jerzy Vidal MD Discharge Instructions We would like to thank you for allowing us to assist you with your healthcare needs. The following includes patient education materials and information regarding your injury/illness. Diagnosis from Today's Visit Anemia Discharge Vitals Temperature??(Temporal Artery) 97.7 ??F (36.5 ??C) Heart Rate??(Peripheral) 66 Respiratory Rate?? 20 Blood Pressure?? 105/68?? Height?? 68.11 in (173.000 cm) Weight??(Estimated) 257.98 lb (117.00 kg) Allergies CARBOplatin penicillins What to Do Next Instructions from Your Care Team You have received 2 units of packed red blood cells.?? Follow-up with your??primary healthcare providers. ?? Josh Chavez MD You Need to Schedule the Following Appointments Follow Up with??Follow up with primary care provider When:??Within 1 to 2 weeks Upcoming Scheduled Appointments Tuesday 2:00 PM EDT ?? You were treated today on an emergency basis; it may be swain to contact your primary care provider to notify them of your visit today. You may have been referred to your regular doctor or a specialist, please follow up as instructed. If your condition worsens or you can't get in to see the doctor, contact the Emergency Department. Medications What How Much When Instructions Next Dose Unchanged aMILoride (aMILoride 5 mg oral tablet) Unchanged apixaban (Eliquis 5 mg oral tablet) 1 tab Oral (given by mouth) 2 times a day Unchanged apixaban (Eliquis 5 mg oral tablet) See instructions TAKE ONE TABLET BY MOUTH TWICE A DAY ?? Unchanged dilTIAZem (DilTIAZem (Eqv-Tiazac) 240 mg/ 24 hours oral capsule, extended release) 1 Capsules Oral (given by mouth) Every day Unchanged furosemide (furosemide 80 mg oral tablet) Unchanged levothyroxine (levothyroxine 150 mcg (0.15 mg) oral tablet) 1 tab Oral (given by mouth) Every day Unchanged magnesium oxide (magnesium oxide 400 mg (241.3 mg elemental magnesium) oral tablet) 1 tab Oral (given by mouth) 3 times a day Unchanged potassium acetate Education Materials Anemia Anemia is a condition in which there is not enough red blood cells or hemoglobin in the blood. Hemoglobin is a substance in red blood cells that carries oxygen. When you do not have enough red blood cells or hemoglobin (are anemic), your body cannot get enoughoxygen and your organs may not work properly. As a result, you may feel very tired or have other problems. What are the causes? Common causes of anemia include: ? Excessive bleeding. Anemia can be caused by excessive bleeding inside or outside the body, including bleeding from the intestines or from heavy menstrual periods in females. ? Poor nutrition. ? Long-lasting (chronic) kidney, thyroid, and liver disease. ? Bone marrow disorders, spleen problems, and blood disorders. ? Cancer and treatments for cancer. ? HIV (human immunodeficiency virus) and AIDS (acquired immunodeficiency syndrome). ? Infections, medicines, and autoimmune disorders that destroy red blood cells. What are the signs or symptoms? Symptoms of this condition include: ? Minor weakness. ? Dizziness. ? Headache, or difficulties concentrating and sleeping. ? Heartbeats that feel irregular or faster than normal (palpitations). ? Shortness of breath, especially with exercise. ? Pale skin, lips, and nails, or cold hands and feet. ? Indigestion and nausea. Symptoms may occur suddenly or develop slowly. If your anemia is mild, you may not have symptoms. How is this diagnosed? This condition is diagnosed based on blood tests, your medical history, and a physical exam. In some cases, a test may be needed in which cells are removed from the soft tissue inside of a bone and looked at under a microscope (bone marrow biopsy). Your health care provider may also check your stool (feces) for blood and may do additional testing to look for the cause of your bleeding. Other tests may include: ? Imaging tests, such as a CT scan or MRI. ? A procedure to see inside your esophagus and stomach (endoscopy). ? A procedure to see inside your colon and rectum (colonoscopy). How is this treated? Treatment for this condition depends on the cause. If you continue to lose a lot of blood, you may need to be treated at a hospital. Treatment may include: ? Taking supplements of iron, vitamin B12, or folic acid. ? Taking a hormone medicine (erythropoietin) that can help to stimulate red blood cell growth. ? Having a blood transfusion. This may be needed if you lose a lot of blood. ? Making changes to your diet. ? Having surgery to remove your spleen. Follow these instructions at home: ? Take pmqg-lic-aufnnmw and prescription medicines only as told by your health care provider. ? Take supplements only as told by your health care provider. ? Follow any diet instructions that you were given by your health care provider. ? Keep all follow-up visits as told by your health care provider. This is important. Contact a health care provider if: ? You develop new bleeding anywhere in the body. Get help right away if: ? You are very weak. ? You are short of breath. ? You have pain in your abdomen or chest. ? You are dizzy or feel faint. ? You have trouble concentrating. ? You have bloody stools, black stools, or tarry stools. ? You vomit repeatedly or you vomit up blood. These symptoms may represent a serious problem that is an emergency. Do not wait to see if the symptoms will go away. Get medical help right away. Call your local emergency services (911 in the [place] Do not drive yourself to the hospital. Summary ? Anemia is a condition in which you do not have enough red blood cells or enough of a substance in your red blood cells that carries oxygen (hemoglobin). ? Symptoms may occur suddenly or develop slowly. ? If your anemia is mild, you may not have symptoms. ? This condition is diagnosed with blood tests, a medical history, and a physical exam. Other tests may be needed. ? Treatment for this condition depends on the cause of the anemia. This information is not intended to replace advice given to you by your health care provider. Make sure you discuss any questions you have with your health care provider. Document Revised: 05/06/2020 Document Reviewed: 05/06/2020 Elsevier Patient Education ?? 2021 [employer]. Tests Performed Lab Test Name Test Result Date/Time ABO/Rh Type A POS 11/17/2022 15:24 EDT Antibody Screen Gel Negative ABSC 11/17/2022 15:24 EDT RBC Product Ready Done 11/17/2022 15:24 EDT XM AHG Gel Interp Compatible 11/17/2022 15:24 EDT Patient/Strategy Lead Signature Patient Name:BRAYAN PIERRE I have received this information and my questions have been answered. Patient/Strategy Lead Name: Patient/Strategy Lead Signature: Relationship to Patient: Witness Name/Signature: Date: Electronically Signed on: 11/17/2022 22:04 EDTSigned by:[facility] Emergency department Note * Shirin Almonte: PERFORM Event Display: ED Notes Authored Date: [id number] * Sharri Soto: PERFORM Event Display: ED Notes Authored Date: [id number] Discharge summary * Shirin Almonte: PERFORM Event Display: Discharge Note Authored Date: * Shriin Almonte: PERFORM Event Display: Discharge Note Authored Date: Diagnosis: 1. Anemia Comment: Diagnosis: Abnormal laboratory findings Comment: Electronically Signed on 11/18/22 04:27 AM Shirin Almonte Patient Care team information Care Team Personnel Name: Jerzy Vidal MD Position: Physician Member Role: Informed Provider Address: Address: [address] Name: Khushboo Lan Position: Nurse Member Role: ED Nurse Name: Suraj Chacon RN Position: Nurse Member Role: ED Nurse Name: Josh Chavez MD Position: Physician Member Role: ED Physician Address: Address: [address] [place] [id number] Care Team Related Persons Name: FRANCOIS PIERRE Name: CESAR KNOX
--- OUTSIDE RECORDS SUMMARY | 2024-02-24 01:11 | XMS_ITS | Continuity of Care Document ---
Author Organization [facility] Address [address] [place] [address] Care Team Providers Care Production Administrator Name Role Phone Young Jerzy Severino Primary Care Physician [phone] Encounter [facility] Date(s): 12/16/22 - 12/16/[address] [id number] Discharge Disposition: Home or Self Care Attending Physician: Shon Schneider MD Admitting Physician: Shon Schneider MD Referring Physician: Shon Schneider MD Allergies, Adverse Reactions, Alerts Substance Reaction Severity Status penicillins Unknown Active CARBOplatin Unknown Active Kiwi 1 Other (See Comments) Itching Severe Active Pollen 2 Other (See Comments) Unknown Active 1Outside Source Comment: Mouth swelling 2Outside Source Comment: rhinorrhea Assessment and Plan Future Appointments Immunizations Given and Recorded Vaccine [...] Daily, # 90 cap, 0 Refill(s), Pharmacy: [id number] 173, cm, 04/12/22 13:04:00 EDT, Height/Length Dosing, 108, kg, 04/12/22 13:04:00 EDT, Weight Dosing Start Date: 08/09/22 Status: Ordered Eliquis 5 mg oral tablet See Instructions, TAKE ONE TABLET BY MOUTH TWICE A DAY, # 180 tab, 0 Refill(s), Pharmacy: [facility], 173, cm, 10/22/22 10:35:00 EDT, Height/Length Dosing, 117, kg, 10/22/22 10:35:00 EDT, Weight Dosing Start Date: 11/14/22 Status: Ordered furosemide 80 mg oral tablet [...] 0 Refill(s) Start Date: 04/02/22 Status: Ordered traMADol 50 mg oral tablet 50 mg = 1 tab, Oral, every 12 hr, PRN as needed for pain, # 60 tab, 0 Refill(s), Pharmacy: [facility], 173, cm, 11/17/22 15:06:00 EDT, Height/Length Dosing, 117, kg, 11/17/22 15:06:00 EDT, Weight Dosing Start Date: 12/03/22 Status: Ordered Problem List Condition Confirmation Course Effective Dates Status H ealth Status Informant Abnormal uterine bleeding Confirmed 01/18/20 Active Aortic valve stenosis Confirmed 2022 Active Atrial fibrillation 1 Confirmed 12/04/18 Active Bradycardia Confirmed Active Chronic atrial fibrillation Confirmed Active Congestive heart failure Confirmed 11/23/22 Active Constipation Confirmed Active Dyspnea Confirmed Active Hypertensive disorder Confirmed Active Hypokalemia Confirmed 03/09/18 Active Hypomagnesemia Confirmed 03/09/18 Active Hypothyroidism 2 Confirmed 12/04/18 Active Lump in left breast Confirmed Active Lung mass Confirmed 03/19/17 Active 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 Morbid obesity Confirmed Active Pain Confirmed Active Pancytopenia Confirmed 12/04/18 Active Platelet disorder Confirmed 10/22/22 Active 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 Snoring Confirmed Active 1Outside Source Comment: Overview: Treated with metoprolol, diltiazem, eliquist 2Outside Source Comment: Overview: Secondary to Sutent Procedures Procedure Date Related Diagnosis Body Site Status Thoracentesis 04/11/22 Completed Thoracentesis 1 08/18/20 Completed Biopsy of breast 03/24/17 Complete d Laparoscopy 2 06/12/01 Completed Elective delivery 3 Completed Hernia repair umbilical 4 Completed Venous access device maintenance 5 Completed 1550 mL clear yellow fluid removed from left side 2Exploratory Laparotomy w/ Appendectomy and Drainage of Intraabdominal Abscess 3X2 [id number] 5POWER PORT Results Laboratory List Name Date .Manual Differential ([facility]) 12/16/22 ABO/Rh 12/16/22 Antibody Screen Gel 12/16/22 CBC w/ Diff 12/16/22 Comprehensive Metabolic Panel 12/16/22 Reticulocyte Count Automated 12/16/22 Most recent to oldest [Reference Range]: 1 WBC [5.0-10.0 x10^3/mcL] 3.1 x10^3/mcL *LOW* (12/16/22 12:34 PM) RBC [4.1-5.3 x10^6/mcL] 2.9 x10^6/mcL *LOW* (12/16/22 12:34 PM) Segs Man [40-75 %] 69 % (12/16/22 12:34 PM) Lymph Man [20-50 %] 26 % (12/16/22 12:34 PM) Dickson Man [2-15 %] 4 % (12/16/22 12:34 PM) Eos Man [1-6 %] 0 % *LOW* (12/16/22 12:34 PM) BUN [7-18 mg/dL] 20 mg/dL *HI* (12/16/22 12:34 PM) ABO/Rh Type A POS *Unknown* (12/16/22 12:34 PM) Glucose Level [74-106 mg/dL] 91 mg/dL (12/16/22 12:34 PM) Potassium Level [3.5-5.1 mmol/L] 4.2 mmo l/L (7/6/23 12:34 PM) MCV [80.0-96.0 fL] 103.5 fL *HI* (12/16/22 PM) RBC Morph Abnormal (12/16/22 PM) AST [15-37 unit/L] 18 unit/L (12/16/22 PM) ALT [14-59 unit/L] 8 unit/L *LOW* (12/16/22 PM) MCHC [31.0-35.0 g/dL] 31.4 g/dL (12/16/22 PM) Sodium Level [136-145 mmol/L] 136 mmol/L (12/16/22 PM) Hct [37.0-47.0 %] 29.9 % *LOW* (12/16/22 PM) Calcium Level [8.5-10.1 mg/dL] 9.1 mg/dL (12/16/22 PM) Albumin Level [3.4-5.0 g/dL] 2.6 g/dL *LOW* (12/16/22 PM) Protein Total [6.4-8.2 g/dL] 8.4 g/dL *HI* (12/16/22 PM) MCH [26.0-32.0 pg] 32.5 pg *HI* (12/16/22 PM) Bilirubin Total [0.2-1.0 mg/dL] 0.9 mg/d L (12/16/22 PM) Hgb [12.0-16.0 g/dL] 9.4 g/dL *LOW* (12/16/22 PM) Alk Phos [46-146 unit/L] 67 unit/L (12/16/22 PM) Band Man [0-5 %] 0 % (12/16/22 PM) Polychrom Rare (12/16/22 PM) Platelets [130-450 x10^3/mcL] 225 x10^3/ mcL (12/16/2234 PM) CO2 [21-32 mmol/L] 32 mmol/L (12/16/22 PM) Reticulocyte % [0.5-2.4 %] 4.5 % *HI* (12/16/22 12:34 PM) Macrocyte Small (12/16/22 12:34 PM) eGFR Non-AA [>=60] 57 *LOW* (12/16/22 12:34 PM) eGFR AA [>=60] 57 *LOW* (12/16/22 12:34 PM) Chloride Level [98-107 mmol/L] 97 mmol/L *LOW* (12/16/22 12:34 PM) RDW-CV [11.5-14.5 %] 21.8 % *HI* (12/16/22 12:34 PM) Ovalocytes Rare (12/16/22 12:34 PM) Slide Review Man Diff (12/16/22 12:34 PM) Abs Neut Man 2.1 x10^3/mcL *NA* (12/16/22 12:34 PM) Anisocyte Moderate (12/16/22 12:34 PM) Creatinine Level [0.55-1.02 mg/dL] 1.08 mg/dL *HI* (12/16/22 12:34 PM) Antibody Screen Gel Negative ABSC (12/16/22 12:34 PM) Baso Man [0-1 %] 1 % (12/16/22 12:34 PM) Social History Social History Type Response Smoking Status Smoking tobacco use: Never tobacco user;Never entered on: 04/08/22 Sex Female Patient Care team information Care Team Personnel Name: Jerzy Vidal MD Position: Physician Member Role: Informed Provider Address: Address: [address] Care Team Related Persons Name: FRANCOIS PIERRE Address: Home Name: CESAR KNOX Address: Home
--- OUTSIDE RECORDS SUMMARY | 2024-02-24 01:11 | XMS_ITS | Continuity of Care Document ---
Author Organization [facility] Address [address] [place] [address] Care Team Providers Care Tool Dresser Name Role Phone Jerzy Vidal Primary Care Physician [phone] Encounter [facility] Date(s): 10/06/22 - 10/06/[address] [phone] Discharge Disposition: Home or Self Care Attending [...] Daily, # 90 cap, 0 Refill(s), Pharmacy: [facility], 173, cm, 04/12/22 13:04:00 EDT, Height/Length Dosing, 108, kg, 04/12/22 13:04:00 EDT, Weight Dosing Start Date: 08/09/22 Status: Ordered Eliquis 5 mg oral tablet 1 tab, Oral, BID, # 180 tab, 0 Refill(s), Pharmacy: [facility], 173, cm, 04/12/22 13:04:00 EDT, Height/Length [...] Appendectomy and Drainage of Intraabdominal Abscess 3X2 [id number] 5POWER PORT Social History Social History Type Response Smoking Status Smoking tobacco use: Never tobacco user;Never entered on: 04/08/22 Sex Female Patient Care team information Care Team Personnel Name: Jerzy Vidal MD Position: Physician Member Role: Informed Provider Address: Address: [address] Care Team Related Persons Name: FRANCOIS PIERRE Address: Home Name: FRANCOIS PIERRE Address: Home Name: CESAR KNOX Address: Home
--- OUTSIDE RECORDS SUMMARY | 2024-02-24 01:11 | XMS_ITS | Continuity of Care Document ---
Author Organization [facility] Address [address] [place] [address] Care Team Providers Care Director Of First Impressions Name Role Phone Jerzy Vidal Primary Care Physician Encounter [facility] Date(s): 10/22/22 - 10/22/[address] [phone] [place] Encounter Diagnosis Severe thrombocytopenia(Discharge Diagnosis) - 10/22/22 [id number] kidney injury(Discharge Diagnosis) - 10/22/22 Chronic kidney disease, unspecified(Discharge Diagnosis) - 10/22/22 Anemia(Discharge Diagnosis) - 10/22/22 Anasarca(Discharge Diagnosis) - 10/22/22 Hyponatremia(Discharge Diagnosis) - 10/22/22 Discharge Disposition: Discharge/Transfer - Other Type of Inst Attending Physician: Gavi Cardoso MD Admitting Physician: Gavi Cardoso MD Allergies, Adverse Reactions, Alerts Substance Reaction Severity Status penicillins Unknown Active CARBOplatin Unknown Active Assessment and Plan Diagnostic Tests Pending * Pathology Smear Consult 10/22/22 Functional Status 10/22/22 Family Member Travel History No recent t ravel Recent Travel History No recent travel Other exposure to Infectious Disease Non e Immunizations Given and Recorded Vaccine Date Status Refusal Reason SARS-CoV-2 (COVID-19) mRNA-1273 vaccine 09/26/20 R ecorded SARS-CoV-2 (COVID-19) mRNA-1273 vaccine 08/28/20 R ecorded pneumococcal 23-polyvalent vaccine 05/17/14 Record ed tetanus/diphth/pertuss (Tdap) adult/adol 03/08/14 Recorded influenza virus vaccine, inactivated 03/08/14 Victor M rded Medications DilTIAZem (Eqv-Tiazac) 240 mg/24 hours oral capsule, extended release 1 cap, Oral, Daily, # 90 cap, 0 Refill(s), Pharmacy: [id number], 173, cm, 04/12/22 13:04:00 EDT, Height/Length Dosing, 108, kg, 04/12/22 13:04:00 EDT, Weight Dosing Start Date: 08/09/22 Status: Ordered Eliquis 5 mg oral tablet 1 tab, Oral, BID, # 180 tab, 0 Refill(s), Pharmacy: [id number], 173, cm, 04/12/22 13:04:00 EDT, Height/Length [...] Appendectomy and Drainage of Intraabdominal Abscess 3X2 [id number] 5POWER PORT Results Laboratory List Name Date ABO/Rh 10/22/22 Antibody Screen Gel 10/22/22 Red Blood Cells 10/22/22 Blood Gas Venous 10/22/22 CBC w/ Diff 10/22/22 Comprehensive Metabolic Panel (CMP) 10/22 Lactic Acid 10/22/22 Magnesium Level 10/22/22 NT- Pro BNP 10/22/22 Troponin-I 10/22/22 .Manual Differential (NCTY) 10/22/22 Fibrinogen Level 10/22/22 PT/ INR 10/22/22 PTT 10/22/22 Most recent to oldest [Reference Range]: 1 WBC [5.0-10.0 x10^3/mcL] 3.4 x10^3/mcL *LOW* (10/22/22 10:54 AM) RBC [4.1-5.3 x10^6/mcL] 2.4 x10^6/mcL *LOW* (10/22/22 10:54 AM) Segs Man [40-75 %] 78 % *HI* (10/22/22 10:54 AM) Lymph Man [20-50 %] 12 % *LOW* (10/22/22 10:54 AM) [place] Man [2-15 %] 3 % (10/22/22 10:54 AM) Eos Man [1-6 %] 2 % (10/22/22 10:54 AM) Prothrombin Time [9.0-11.0 seconds] 12.7 seconds *HI* (10/22/22 10:54 AM) INR 1.2 *NA* (10/22/22 10:54 AM) BUN [7-18 mg/dL] 58 mg/dL *HI* (10/22/22 10:54 AM) ABO/Rh Type A POS *Unknown* (10/22/22 2:34 PM) Glucose Level [74-106 mg/dL] 122 mg/dL *HI* (10/22/22 10:54 AM) Potassium Level [3.5-5.1 mmol/L] 4.2 mmo l/L (10/22/22 10:54 AM) MCV [80.0-96.0 fL] 97.9 fL *HI* (10/22/22 10:54 AM) RBC Morph Abnormal (10/22/22 10:54 AM) CO2 Total Venous 29 mmol/L *NA* (10/22/22 10:54 AM) HCO3 Venous [22-30 mmol/L] 27 mmol/L (10/22/22 10:54 AM) AST [15-37 unit/L] 23 unit/L (10/22/22 10:54 AM) ALT [14-59 unit/L] 11 unit/L *LOW* (10/22/22 10:54 AM) MCHC [31.0-35.0 g/dL] 30.9 g/dL *LOW* (10/22/22 10:54 AM) Troponin-I [0.0-51.4 pg/mL] 9.1 pg/mL (10/22/22 10:54 AM) Sodium Level [136-145 mmol/L] 129 mmol/L *LOW* (10/22/22 10:54 AM) Hct [37.0-47.0 %] 23.0 % *LOW* (10/22/22 10:54 AM) Partial Thromboplastin Time [22-35 secon ds] 40 seconds *HI* (10/22/22 10:54 AM) Calcium Level [8.5-10.1 mg/dL] 8.1 mg/dL *LOW* (10/22/22 10:54 AM) Albumin Level [3.4-5.0 g/dL] 2.1 g/dL *LOW* (10/22/22 10:54 AM) Protein Total [6.4-8.2 g/dL] 7.5 g/dL (10/22/22 10:54 AM) MCH [26.0-32.0 pg] 30.2 pg (10/22/22 10:54 AM) Magnesium Level [1.8-2.4 mg/dL] 2.0 mg/d L (10/22/22 10:54 AM) Bilirubin Total [0.2-1.0 mg/dL] 0.9 mg/d L (10/22/22 10:54 AM) Hgb [12.0-16.0 g/dL] 7.1 g/dL *LOW* (10/22/22 10:54 AM) Alk Phos [46-146 unit/L] 65 unit/L (10/22/22 10:54 AM) pCO2 Yoan [33-47 mmHg] 45 mmHg (10/22/22 10:54 AM) Band Man [0-5 %] 0 % (10/22/22 10:54 AM) Platelets [130-450 x10^3/mcL] 3 x10^3/mc L 1 *CRIT* (10/22/22 10:54 AM) CO2 [21-32 mmol/L] 26 mmol/L (10/22/22 10:54 AM) Lactic Acid Lvl [0.7-2.0 mmol/L] 1.8 mmo l/L (10/22/22 10:54 AM) pO2 Yoan 49 mmHg *NA* (10/22/22 10:54 AM) Macrocyte Rare (10/22/22 10:54 AM) pH Yoan [7.32-7.43 pH unit(s)] 7.39 pH un it(s) (10/22/22 10:54 AM) O2 Sat Yoan 80 % *NA* (10/22/22 10:54 AM) eGFR Non-AA [>=60] 26 *LOW* (10/22/22 10:54 AM) eGFR AA [>=60] 26 *LOW* (10/22/22 10:54 AM) Base Excess Venous 2.1 mmol/L *NA* (10/22/22 10:54 AM) Fibrinogen Level [200-400 mg/dL] 450 mg/ dL *HI* (10/22/22 10:54 AM) NT-proBNP [0-125 pg/mL] 06726 pg/mL *HI* (10/22/22 10:54 AM) Chloride Level [98-107 mmol/L] 93 mmol/L *LOW* (10/22/22 10:54 AM) RBC Product Ready Done (10/22/22 2:34 PM) RDW-CV [11.7-17.0 %] 17.1 % *HI* (10/22/22 10:54 AM) Slide Review Man Diff (10/22/22 10:54 AM) Abs Neut Man 2.7 x10^3/mcL *NA* (10/22/22 10:54 AM) Immature Cells 5 *NA* (10/22/22 10:54 AM) Anisocyte Small (10/22/22 10:54 AM) Creatinine Level [0.55-1.02 mg/dL] 2.10 mg/dL *HI* (10/22/22 10:54 AM) Antibody Screen Gel Negative ABSC (10/22/22 2:34 PM) Baso Man [0-1 %] 0 % (10/22/22 10:54 AM) 1Result Comment: Called to and verbally verified by Alana Ruiz at 10/22/2022 12:05:28 EDT. Vital Signs Most recent to oldest [Reference Range]: 1 2 3 Temperature Temporal Artery [36-38 Deg C] 36.1 Deg C (10/22/22 7:15 PM) 36.9 Deg C (10/22/22 5:30 PM) 36.2 Deg C (10/22/22 5:00 PM) Temperature Temporal Artery (DegF) [97.3-100 Deg F] 98.42 Deg F (10/22/22 5:30 PM) 96.8 Deg F *LOW* (10/22/22 4:30 PM) 97.16 Deg F *LOW* (10/22/22 4:25 PM) Peripheral Pulse Rate [60-100 bpm] 75 bpm (10/22/22 7:15 PM) 80 bpm (10/22/22 7:00 PM) 86 bpm (10/22/22 6:59 PM) Heart Rate Monitored [60-100 bpm] 86 bpm (10/22/22 7:15 PM) 89 bpm (10/22/22 7:00 PM) 86 bpm (10/22/22 6:59 PM) Respiratory Rate [12-24 br/min] 20 br/min (10/22/22 7:15 PM) 26 br/min *HI* (10/22/22 7:00 PM) 29 br/min *HI* (10/22/22 6:59 PM) Blood Pressure [90-140/60-90 mmHg] 106/69mmHg (10/22/22 7:15 PM) 107/59mmHg (10/22/22 7:00 PM) 109/71mmHg (10/22/22 6:59 PM) Weight Dosing 117.00 kg (10/22/22 10:35 AM) Weight Estimated 117.00 kg (10/22/22 10:22 AM) Height/Length Dosing 173.000 cm (10/22/22 10:35 AM) Height/Length Estimated 173.000 cm (10/22/22 10:22 AM) Social History Social History Type Response Smoking Status Smoking tobacco use: Never tobacco user;Never entered on: 04/08/22 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 Requesting that additional labs be added to the ones that where already drawn. The [facility] was [facility] the way over to get them when pt was heading to ER. [facility] sent orders from [facility] - this order was dropped off at the lad so they can add additional labs and send results to ordering provider - per lab this will be done. LM with Renetta OCHOA that pt was being transferred to [facility]. EKG study * Event Display: Telemetry Strips Please click on link to view image. Physician Emergency department Note * Sameer Mcnair MD: PERFORM, MODIFY Event Display: ED Note Physician Authored Date: [id number] BRAYAN PIERRE :1955 Age:67 years Sex:Female Visit Date:10/22/2022 Primary Care Physician: Jerzy Vidal MD Basic Information Time Seen: Sameer Mcnair MD / 10/22/2022 10:27 Chief Complaint I have cancer as you know, and had my last chemo treatment two weeks ago. Today I started coughingup tablespoons of blood X2. PT 76% on RA on arrival. PT pale on arrival. Afebrile. 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 ??She describes the symptoms as about 4 tablespoons of hemoptysis. ??Unclear whether she coughed this up but she denies??it ever happening during a coughing episode, she more states that she had a dry heave and then??had the blood come up in her mouth??this morning. ??She is intermittently always short of breath but perhaps more so this morning with minimal exertion, no shortness of breath at rest. ??She also had an episode of??what she described as heartburn and lower??sternal pain, burning sensation??in the lower sternum??that then self resolved at 2 AM this morning.??She has worsening edema for which she had tribes this secondary to chemotherapy bilateral lower extremities and into the abdomen. Review of Systems: Hemoptysis, dyspnea Physical Exam Vitals & Measurements T:??36.2?C ??(Temporal Artery)?? HR:??86??(Monitored)?? RR:??24?? BP:??110/66?? SpO2:??91%?? HT:??173.000??cm?? WT:??117.00??kg??(Estimated)?? Pain Score:??0?? O2 Flow Rate:??3?? O2 Therapy:??Nasal cannula?? General: Alert and oriented, well nourished,?No??acute distress Eye: PERRL, EOMI,?Normal?conjunctiva HENT: Normocephalic Lungs: Clear to auscultation and percussion,?Non-labored?? respiration Heart:?Normal? rate,?Regular??rhythm Abdomen: Soft, non-tender, non-distended Skin: Patient has??anasarca all the way up to the abdomen, bilateral lower extremity edema??+3 Neurologic: Awake, alert and oriented X4, CN II-XII intact Psychiatric: Cooperative, appropriate mood and affect Medical Decision Makin-year-old female presents with??either hemoptysis or GI bleed, unable to tell??clinically whetherthe blood was coming from??lungs to the GI tract. ??About 4 tablespoons worth. ??Associated with some more dyspnea this morning and worsening??coming and going bilateral lower extremity edema and abdominal edema.?? She has no abdominal pain, but does have anasarca??all the way up to the top of the abdomen extending into the bilateral lower extremities. ??She has been evaluated for this in the past currently on Lasix and compliant,??it seems that??oncology team has mostly attributed this as a side effect of her recent chemotherapy.?? 35.9, 91/73, 84, 28, 76% on room air.?? Oxygenation was measured after she wheeled herself in and was brought over to the bed so there was an exertional component to this, there was??no significant??respiratory distress clinically with this but did have good measurement at 76% on room air??that improved with??2 L nasal cannula, ultimately it was increased upto 4 L nasal cannula??with oxygenation in the low 90s. ?? EKG rate 87??unclear rhythm possibly atrial fibrillation, normal axis and intervals no ST segment elevations or depressions. ?? VBG unremarkable.?? Leukopenia near baseline at 3.4. ??Anemic at 7.1, likely chemotherapy related.?? Platelets are at 3,??possibly chemotherapy related as well.?? Fibrinogen level is??slightly above normal at 450, INR 1.2. ??Sodium 129, creatinine elevated at 2.1.?? Lactate 1.8, magnesium normal. ??Troponin normal. ??BNP 10,000.?? Chest x-ray shows effusions.?? CT of the chest shows??and redemonstrates??prior bilateral effusions that are quite large but not??significantly larger than before and also shows??likely atelectasis??within the lung parenchyma however there is no??clinical evidence of pneumonia.?? Redemonstrates prior thymic mass as well.?? Spoke with oncology at [facility] on-call,??recommended transfer to tertiary facility given??the significant??low platelet level and activebleed.?? Unclear clinically as to where this bleed is coming from,??I cannot determine if this is coming from the lungs or the GI tract. ??She has had several episodes of blood coming up through the o ropharynx,??filled the bottom??of a vomit bag here in the ER??around 25 to 50 mL.?? Spoke with ICU team at [facility],??Dr. Yadav??is the accepting physician.?? Patient maintains??4 L nasal cannula??oxygenation low 90s. ??She continues to have significant exertional dyspnea and a low threshold for hypoxia with minimal exertion??likely related to??pleural effusions and??atelectasis.?? Riley was placed, given 20 mg IV Lasix,??had some output but then was given 40 mg IV Lasix, will need more diuresis while in the hospital. ??Stable for transfer, agreeable for transfer.?? She remains full code at this time. Procedure No Qualifying Data Assessment/Plan 1.??Severe thrombocytopenia??D69.6 2.??Ladqg-uz-clbsaaf kidney injury??N17.9 3.??Anemia??D64.9 4.??Anasarca??R60.1 5.??Hyponatremia??E87.1 Chronic kidney disease, unspecified??N18.9 Orders: Pathology Smear Consult, Blood, Stat, 10/22/22 14:58:00 EDT, Once, Nurse collect Platelets, Stat, Print Label, 2, Low PLT Chemo Medication Reconciliation Unchanged apixaban (Eliquis 5 mg oral tablet)1 tab Oral (given by mouth) 2 times a day. Refills: 0. ?? dilTIAZem (DilTIAZem (Eqv-Tiazac) 240 mg/24 hours oral capsule, extended release)1 Capsules Oral (given by mouth) every day. Refills: 0. ?? levothyroxine (levothyroxine 150 mcg (0.15 mg) oral tablet)1 tab Oral (given by mouth) every day. ?? magnesium oxide (magnesium oxide 400 mg (241.3 mg elemental magnesium) oral tablet)1 tab Oral (given by mouth) 3 times a day. ?? 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 Employment/School disability Home/Environment Lives with Children, Sons children. Substance Use Never Tobacco Never tobacco user Tobacco Use:. Never Smokeless Tobacco use:. Family History Arthritis: Father and Sister. Cancer: Mother. Hydrocephalus: Father (Dx at 77). Lab Results Blood Gases?? LATEST RESULTS?? pH Yoan?? 10/22/22 10:54?? 7.39?? pCO2 Yoan?? 10/22/22 10:54?? 45?? pO2 Yoan?? 10/22/22 10:54?? 49?? HCO3 Venous?? 10/22/22 10:54?? 27?? O2 Sat Yoan?? 10/22/22 10:54?? 80?? CO2 Total Venous?? 10/22/22 10:54?? 29?? Base Excess Venous?? 10/22/22 10:54?? 2.1? CBC and Differential?? LATEST RESULTS?? HISTORICAL RESULTS?? WBC?? 10/22/22 10:54?? 3.4 ??Low?? 10/14/22?? 3.7 ??Low?? RBC?? 10/22/22 10:54?? 2.4 ??Low?? 10/14/22?? 2.8 ??Low?? Hgb?? 10/22/22 10:54?? 7.1 ??Low?? 10/14/22?? 8.6 ??Low?? Hct?? 10/22/22 10:54?? 23.0 ??Low?? 10/14/22?? 28.0 ??Low?? MCV?? 10/22/22 10:54?? 97.9 ??High?? 10/14/22?? 100.4 ??High?? MCH?? 10/22/22 10:54?? 30.2?? 10/14/22?? 30.8?? MCHC?? 10/22/22 10:54?? 30.9 ??Low?? 10/14/22?? 30.7 ??Low?? RDW-CV?? 10/22/22 10:54?? 17.1 ??High?? 10/14/22?? 17.2 ??High?? Platelets?? 10/22/22 10:54?? 3 ??Critical?? 10/14/22?? 68 ??Low?? Segs Man?? 10/22/22 10:54?? 78 ??High?? 10/14/22?? 92 ??High?? Lymph Man?? 10/22/22 10:54?? 12 ??Low?? 10/14/22?? 7 ??Low?? [place] Man?? 10/22/22 10:54?? 3?? 10/14/22?? 0?? Eos Man?? 10/22/22 10:54?? 2?? 10/14/22?? 0?? Baso Man?? 10/22/22 10:54?? 0?? 10/14/22?? 1?? Band Man?? 10/22/22 10:54?? 0?? 10/14/22?? 0?? Abs Neut Man?? 10/22/22 10:54?? 2.7?? 10/14/22?? 3.4?? RBC Morph?? 10/22/22 10:54?? Abnormal?? 10/14/22?? Abnormal?? Anisocyte?? 10/22/22 10:54?? Small?? 10/14/22?? Small?? Immature Cells?? 10/22/22 10:54?? 5?? 08/11/22?? 1?? Macrocyte?? 10/22/22 10:54?? Rare?? 10/14/22?? Rare?? Slide Review?? 10/22/22 10:54?? Man Diff?? 10/14/22?? Man Diff? Coagulation?? LATEST RESULTS?? HISTORICAL RESULTS?? Prothrombin Time?? 10/22/22 10:54?? 12.7 ??High?? 01/19/22?? 11.9 ??High?? INR?? 10/22/22 10:54?? 1.2?? 01/19/22?? 1.2?? Partial Thromboplastin Time?? 10/22/22 10:54?? 40 ??High?? 01/19/22?? 37 ??High?? Fibrinogen Level?? 10/22/22 10:54?? 450 ??High? Routine Chemistry?? LATEST RESULTS?? HISTORICAL RESULTS?? Sodium Level?? 10/22/22 10:54?? 129 ??Low?? 10/14/22?? 133 ??Low?? Potassium Level?? 10/22/22 10:54?? 4.2?? 10/14/22?? 4.6?? Chloride Level?? 10/22/22 10:54?? 93 ??Low?? 10/14/22?? 98?? CO2?? 10/22/22 10:54?? 26?? 10/14/22?? 32?? Alk Phos?? 10/22/22 10:54?? 65?? 10/14/22?? 63?? AST?? 10/22/22 10:54?? 23?? 10/14/22?? 18?? ALT?? 10/22/22 10:54?? 11 ??Low?? 10/14/22?? 8 ??Low?? BUN?? 10/22/22 10:54?? 58 ??High?? 10/14/22?? 29 ??High?? Glucose Level?? 10/22/22 10:54?? 122 ??High?? 10/14/22?? 93?? Creatinine Level?? 10/22/22 10:54?? 2.10 ??High?? 10/14/22?? 1.12 ??High?? eGFR AA?? 10/22/22 10:54?? 26 ??Low?? 10/14/22?? 55 ??Low?? eGFR Non-AA?? 10/22/22 10:54?? 26 ??Low?? 10/14/22?? 55 ??Low?? Calcium Level?? 10/22/22 10:54?? 8.1 ??Low?? 10/14/22?? 8.9?? Protein Total?? 10/22/22 10:54?? 7.5?? 10/14/22?? 7.9?? Albumin Level?? 10/22/22 10:54?? 2.1 ??Low?? 10/14/22?? 2.5 ??Low?? Bilirubin Total?? 10/22/22 10:54?? 0.9?? 10/14/22?? 1.4 ??High?? Lactic Acid Lvl?? 10/22/22 10:54?? 1.8? Magnesium Level?? 10/22/22 10:54?? 2.0?? 10/06/22?? 1.5 ??Low? Cardiac Isoenzymes?? LATEST RESULTS?? HISTORICAL RESULTS?? Troponin-I?? 10/22/22 10:54?? 9.1? NT-proBNP?? 10/22/22 10:54?? 26838 ??High?? 08/11/22?? 4885 ??High? Transfusion Medicine Testing?? LATEST RESULTS?? HISTORICAL RESULTS?? ABO/Rh Type?? 10/22/22 14:34?? A POS?? 08/11/22?? A POS?? Antibody Screen Gel?? 10/22/22 14:34?? Negative ABSC?? 08/11/22?? Negative ABSC?? RBC Product Ready?? 10/22/22 14:34?? Done?? 08/11/22?? Done? Crossmatch Summary?? LATEST RESULTS?? HISTORICAL RESULTS?? Crossmatch - IS?? 10/22/22 14:34?? Compatible?? 08/11/22?? Compatible? Electronically Signed on 10/22/22 05:13 PM Sameer Mcnair MD Electronically Signed on 10/22/22 06:16 PM Sameer Mcnair MD Emergency department Note * Shirin Almonte: PERFORM Event Display: ED Notes Authored Date: [id number] * Shirin Almonte: PERFORM Event Display: ED Notes Authored Date: [id number] Patient Care team information Care Team Personnel Name: Jerzy Vidal MD Position: Physician Member Role: Informed Provider Address: Address: [address] [address]- Name: Alana Ponce Position: Nurse Member Role: ED Nurse Name: Liz Isbell RN Position: Nurse Member Role: ED Nurse Name: Sameer Mcnair MD Position: Physician Member Role: ED Physician Address: Address: [facility] [address] [place] [address]- Care Team Related Persons Name: FRANCOIS PIERRE Name: CESAR KNOX
--- OUTSIDE RECORDS SUMMARY | 2024-02-24 01:11 | XMS_ITS | Continuity of Care Document ---
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 Discharge Disposition: Home or Self Care Attending Physician: David Magallon MD Admitting Physician: David Magallon MD Allergies, Adverse Reactions, Alerts Substance Reaction Severity Status penicillins Unknown Active CARBOplatin Unknown Active Assessment and Plan Diagnostic Tests Pending * Non SPOT W[employer]BLY/FNA Cytology [facility] 04/02/22 Functional Status 04/02/22 Other exposure to Infectious Disease Non e [...] Appendectomy and Drainage of Intraabdominal Abscess 3X2 [id number] Results Laboratory List Name Date LDH, Fluid [facility] 04/02/22 Total Protein, Fluid [facility] 04/02/22 .Manual Differential ([facility]) 04/02/22 CBC w/ Diff 04/02/22 Comprehensive Metabolic Panel 04/02/22 NT- Pro BNP 04/02/22 Most recent to oldest [Reference Range]: 1 WBC [5.0-10.0 x10^3/mcL] 5.5 x10^3/mcL (04/02/22 10:52 AM) RBC [4.1-5.3 x10^6/mcL] 3.8 x10^6/mcL *LOW* (04/02/22 10:52 AM) Segs Man [40-75 %] 79 % *HI* (04/02/22 10:52 AM) Lymph Man [20-50 %] 12 % *LOW* (04/02/22 10:52 AM) [place] Man 8 % *NA* (04/02/22 10:52 AM) Eos Man 1 % *NA* (04/02/22 10:52 AM) BUN [7-18 mg/dL] 23 mg/dL *HI* (04/02/22 10:52 AM) Glucose Level [74-106 mg/dL] 95 mg/dL (04/02/22 10:52 AM) Potassium Level [3.5-5.1 mmol/L] 3.7 mmo l/L (04/02/22 10:52 AM) MCV [80.0-103.0 fL] 89.8 fL (04/02/22 10:52 AM) RBC Morph Abnormal (04/02/22 10:52 AM) AST [15-37 unit/L] 15 unit/L (04/02/22 10:52 AM) ALT [16-63 unit/L] 13 unit/L *LOW* (04/02/22 10:52 AM) MCHC [31.0-35.0 g/dL] 29.4 g/dL *LOW* (04/02/22 10:52 AM) Sodium Level [136-145 mmol/L] 136 mmol/L (04/02/22 10:52 AM) Hct [37.0-47.0 %] 34.4 % *LOW* (04/02/22 10:52 AM) Schistocytes Rare (04/02/22 10:52 AM) Calcium Level [8.5-10.1 mg/dL] 9.5 mg/dL (04/02/22 10:52 AM) Albumin Level [3.4-5.0 g/dL] 3.5 g/dL (04/02/22 10:52 AM) Protein Total [6.4-8.2 g/dL] 7.4 g/dL (04/02/22 10:52 AM) Poik Small (04/02/22 10:52 AM) MCH [26.0-32.0 pg] 26.4 pg (04/02/22 10:52 AM) Bilirubin Total [0.2-1.0 mg/dL] 1.0 mg/d L (04/02/22 10:52 AM) Hgb [12.0-16.0 g/dL] 10.1 g/dL *LOW* (04/02/22 10:52 AM) Alk Phos [46-146 unit/L] 71 unit/L (04/02/22 10:52 AM) Band Man [0-5 %] 0 % (04/02/22 10:52 AM) Polychrom Rare (04/02/22 10:52 AM) Platelets [130-450 x10^3/mcL] 239 x10^3/ mcL (04/02/22 10:52 AM) CO2 [21-32 mmol/L] 30 mmol/L (04/02/22 10:52 AM) eGFR Non-AA [>=60] 55 *LOW* (04/02/22 10:52 AM) eGFR AA [>=60] 55 *LOW* (04/02/22 10:52 AM) NT-proBNP [0-125 pg/mL] 2792 pg/mL *HI* (04/02/22 10:52 AM) Chloride Level [98-107 mmol/L] 99 mmol/L (04/02/22 10:52 AM) RDW-CV [11.7-17.0 %] 23.9 % *HI* (04/02/22 10:52 AM) Ovalocytes Small (04/02/22 10:52 AM) Stomatocyte Rare (04/02/22 10:52 AM) Abs Neut Man 4.3 x10^3/mcL *NA* (04/02/22 10:52 AM) Anisocyte Moderate (04/02/22 10:52 AM) Creatinine Level [0.55-1.02 mg/dL] 1.12 mg/dL *HI* (04/02/22 10:52 AM) LDH, Fluid [facility] [See Note IntlUnit/L] 97 IntlUnit/L 1 *NA* (04/02/22 1:56 PM) Total Protein, Fluid [facility] [See Note g/dL] 2.4 g/dL 2 *NA* (04/02/22 1:56 PM) Baso Man [0-1 %] 0 % (04/02/22 10:52 AM) 1Result Comment: Pleural fluid Reference range unavailable. Clinical correlation required. This Fluid LDH assay was developed and its performance characteristics determined by [facility]. It has not been cleared or approved by the [place] Food and Drug Administration. Test performed [place] [address] 2Result Comment: Pleural fluid Reference range unavailable. Clinical correlation required. This Fluid Total Protein assay was developed and its performance characteristics determined by [facility]. It has not been cleared or approved by the US Food and Drug Administration. Reference range unavailable. Clinical correlation required. This Fluid Total Protein assay was developed and its performance characteristics determined by [facility]. It has not been cleared or approved by the US Food and Drug Administration. Test performed or referred by [facility] [place] [id number] Vital Signs Most recent to oldest [Reference Range]: 1 2 3 Temperature Temporal Artery [36-38 Deg C] 36.2 Deg C (04/02/22 10:40 AM) Temperature Temporal Artery (DegF) [97.3-100 Deg F] 97.16 Deg F *LOW* (04/02/22 10:40 AM) Peripheral Pulse Rate [60-100 bpm] 79 bpm (04/02/22 1:45 PM) 74 bpm (04/02/22 1:40 PM) 69 bpm (04/02/22 1:30 PM) Heart Rate Monitored [60-100 bpm] 83 bpm (04/02/22 1:45 PM) 83 bpm (04/02/22 1:40 PM) 85 bpm (04/02/22 1:30 PM) Respiratory Rate [12-24 br/min] 25 br/min *HI* (04/02/22 1:45 PM) 25 br/min *HI* (04/02/22 1:40 PM) 23 br/min (04/02/22 1:30 PM) Blood Pressure [90-140/60-90 mmHg] 141/85mmHg *HI* (04/02/22 1:45 PM) 136/83mmHg (04/02/22 1:40 PM) 124/86mmHg (04/02/22 12:16 PM) Weight Dosing 110.68 kg (04/02/22 10:23 AM) Weight Estimated 110.68 kg (04/02/22 10:17 AM) Height/Length Dosing 172.700 cm (04/02/22 10:23 AM) Height/Length Estimated 172.700 cm (04/02/22 10:17 AM) Social History Social History Type Response Smoking Status Smoking tobacco use: Never tobacco user;Never entered on: 11/23/21 Sex Female Hospital Discharge Instructions Patient Education 04/02/2022 13:59:34 Pleural Effusion Pleural Effusion Pleural effusion is an abnormal buildup of fluid in the layers of tissue between the lungs and the inside of the chest (pleural space). The two layers of tissue that line the lungs and the inside of the chest are called pleura. Usually, there is no air in the space between the pleura, only a thin layer of fluid. Some conditions can cause a large amount of fluid to build up, which can cause the lung to collapse if untreated. A pleural effusion is usually caused by another disease that requires treatment. What are the causes? Pleural effusion can be caused by: ??? Heart failure. ??? Certain infections, such as pneumonia or tuberculosis. ??? Cancer. ??? A blood clot in the lung (pulmonary embolism). ??? Complications from surgery, such as from open heart surgery. ??? Liver disease (cirrhosis). ??? Kidney disease. What are the signs or symptoms? In some cases, pleural effusion may cause no symptoms. If symptoms are present, they may include: ??? Shortness of breath, especially when lying down. ??? Chest pain. This may get worse when taking a deep breath. ??? Fever. ??? Dry, long-lasting (chronic) cough. ??? Hiccups. ??? Rapid breathing. An underlying condition that is causing the pleural effusion (such as heart failure, pneumonia, blood clots, tuberculosis, or cancer) may also cause other symptoms. How is this diagnosed? This condition may be diagnosed based on: ??? Your symptoms and medical history. ??? A physical exam. ??? A chest X-ray. ??? A procedure to use a needle to remove fluid from the pleural space (thoracentesis). This fluid is tested. ??? Other imaging studies of the chest, such as ultrasound or CT scan. How is this treated? Depending on the cause of your condition, treatment may include: ??? Treating the underlying condition that is causing the effusion. When that condition improves, the effusion will also improve. Examples of treatment for underlying conditions include: ??? Antibiotic medicines to treat an infection. ??? Diuretics or other heart medicines to treat heart failure. ??? Thoracentesis. ??? Placing a thin flexible tube under your skin and into your chest to continuously drain the effusion (indwelling pleural catheter). ??? Surgery to remove the outer layer of tissue from the pleural space (decortication). ??? A procedure to put medicine into the chest cavity to seal the pleural space and prevent fluid buildup (pleurodesis). ??? Chemotherapy and radiation therapy, if you have cancerous (malignant) pleural effusion. These treatments are typically used to treat cancer. They kill certain cells in the body. Follow these instructions at home: ??? Take [id number] and prescription medicines only as told by your health care provider. ??? Ask your health care provider what activities are safe for you. ??? Keep track of how long you are able to do mild exercise (such as walking) before you get short of breath. Write down this information to share with your health care provider. Your ability to exercise should improve over time. ??? Do not use any products that contain nicotine or tobacco, such as cigarettes and e-cigarettes. If you need help quitting, ask your health care provider. ??? Keep all follow-up visits as told by your health care provider. This is important. Contact a health care provider if: ??? The amount of time that you are able to do mild exercise: ??? Decreases. ??? Does not improve with time. ??? You have a fever. Get help right away if: ??? You are short of breath. ??? You develop chest pain. ??? You develop a new cough. Summary ??? Pleural effusion is an abnormal buildup of fluid in the layers of tissue between the lungs and the inside of the chest. ??? Pleural effusion can have many causes, including heart failure, pulmonary embolism, infections,or cancer. ??? Symptoms of pleural effusion can include shortness of breath, chest pain, fever, long-lasting (chronic) cough, hiccups, or rapid breathing. ??? Diagnosis often involves making images of the chest (such as with ultrasound or X-ray) and removing fluid (thoracentesis) to send for testing. ??? Treatment for pleural effusion depends on what underlying condition is causing it. This information is not intended to replace advice given to you by your health care provider. Make sure you discuss any questions you have with your health care provider. Document Revised: 09/08/2021 Document Reviewed: 01/29/2021 Elsevier Patient Education ?? 2021 [employer] Follow Up Care 04/02/2022 10:17:44 With:Follow up with primary care provider Address: When:1 to 2 days Comments:You been seen in the emergency department and no emergent medical condition has been identified. ??It is recommended that you follow-up with your primary care provider within the next??48 hours. ??Ifyour condition worsens or you are unable to??arrange for appropriate follow-up please??reach out tot emergency department by phone or return to the emergency department for repeat evaluation. Patient Care team information Personnel Name: Jerzy Vidal MD Address: Address: [address] [address]- [place]
--- OUTSIDE RECORDS SUMMARY | 2024-02-24 01:12 | XMS_ITS | Continuity of Care Document ---
Author Organization [facility] Address [address] [place] [address] Care Team Providers Care Auto Clocks Repairer Name Role Phone YoungJerzy magana Severino Primary Care Physician Encounter [facility] Date(s): 12/09/22 - 12/09/[address] [address] Discharge Disposition: Home or Self Care Attending Physician: Shon Schneider MD Admitting Physician: Shon Schneider MD Allergies, Adverse Reactions, [...] Daily, # 90 cap, 0 Refill(s), Pharmacy: [id number], 173, cm, 04/12/22 13:04:00 EDT, Height/Length Dosing, 108, kg, 04/12/22 13:04:00 EDT, Weight Dosing Start Date: 08/09/22 Status: Ordered Eliquis 5 mg oral tablet See Instructions, TAKE ONE TABLET BY MOUTH TWICE A DAY, # 180 tab, 0 Refill(s), Pharmacy: [id number], 173, cm, 10/22/22 10:35:00 EDT, Height/Length [...] pain, # 60 tab, 0 Refill(s), Pharmacy: [facility], 173, cm, 11/17/22 15:06:00 EDT, Height/Length [...] Appendectomy and Drainage of Intraabdominal Abscess 3X2 00074 5POWER PORT Results Laboratory List Name Date .Manual Differential ([facility]) 12/09/22 ABO/Rh 12/09/22 Antibody Screen Gel 12/09/22 CBC w/ Diff 12/09/22 Comprehensive Metabolic Panel 12/09/22 Reticulocyte Count Automated 12/09/22 Most recent to oldest [Reference Range]: 1 WBC [5.0-10.0 x10^3/mcL] 2.5 x10^3/mcL *LOW* (12/09/22 9:30 AM) RBC [4.1-5.3 x10^6/mcL] 2.2 x10^6/mcL *LOW* (12/09/22 9:30 AM) Segs Man [40-75 %] 62 % (12/09/22 9:30 AM) Lymph Man [20-50 %] 32 % (12/09/22 9:30 AM) [place] Man [2-15 %] 5 % (12/09/22 9:30 AM) Eos Man [1-6 %] 1 % (12/09/22 9:30 AM) BUN [7-18 mg/dL] 17 mg/dL (12/09/22 9:30 AM) ABO/Rh Type A POS *Unknown* (12/09/22 9:30 AM) Glucose Level [74-106 mg/dL] 91 mg/dL (12/09/22 9:30 AM) Potassium Level [3.5-5.1 mmol/L] 3.2 mmo l/L *LOW* (12/09/22 9:30 AM) MCV [80.0-96.0 fL] 104.1 fL *HI* (12/09/22 9:30 AM) RBC Morph Abnormal (12/09/22 9:30 AM) AST [15-37 unit/L] 20 unit/L (12/09/22 9:30 AM) ALT [14-59 unit/L] 10 unit/L *LOW* (12/09/22 9:30 AM) MCHC [31.0-35.0 g/dL] 31.3 g/dL (12/09/22 9:30 AM) Sodium Level [136-145 mmol/L] 134 mmol/L *LOW* (12/09/22 9:30 AM) Hct [37.0-47.0 %] 22.7 % *LOW* (12/09/22 9:30 AM) Calcium Level [8.5-10.1 mg/dL] 8.8 mg/dL (12/09/22 9:30 AM) Albumin Level [3.4-5.0 g/dL] 2.5 g/dL *LOW* (12/09/22 9:30 AM) Protein Total [6.4-8.2 g/dL] 8.6 g/dL *HI* (12/09/22 9:30 AM) MCH [26.0-32.0 pg] 32.6 pg *HI* (12/09/22 9:30 AM) Bilirubin Total [0.2-1.0 mg/dL] 0.8 mg/d L (12/09/22 9:30 AM) Hgb [12.0-16.0 g/dL] 7.1 g/dL *LOW* (12/09/22 9:30 AM) Alk Phos [46-146 unit/L] 64 unit/L (12/09/22 9:30 AM) Band Man [0-5 %] 0 % (12/09/22 9:30 AM) Polychrom Rare (12/09/22 9:30 AM) Platelets [130-450 x10^3/mcL] 192 x10^3/ mcL (12/09/22 9:30 AM) CO2 [21-32 mmol/L] 34 mmol/L *HI* (12/09/22 9:30 AM) Reticulocyte % [0.5-2.4 %] 3.5 % *HI* (12/09/22 9:30 AM) Macrocyte Small (12/09/22 9:30 AM) eGFR Non-AA [>=60] 58 *LOW* (12/09/22 9:30 AM) eGFR AA [>=60] 58 *LOW* (12/09/22 9:30 AM) Chloride Level [98-107 mmol/L] 96 mmol/L *LOW* (12/09/22 9:30 AM) RDW-CV [11.5-14.5 %] 21.1 % *HI* (12/09/22 9:30 AM) Ovalocytes Rare (12/09/22 9:30 AM) Slide Review Man Diff (12/09/22 9:30 AM) Abs Neut Man 1.6 x10^3/mcL *NA* (12/09/22 9:30 AM) Anisocyte Moderate (12/09/22 9:30 AM) Creatinine Level [0.55-1.02 mg/dL] 1.06 mg/dL *HI* (12/09/22 9:30 AM) Antibody Screen Gel Negative ABSC (12/09/22 9:30 AM) Baso Man [0-1 %] 0 % (12/09/22 9:30 AM) Social History Social History Type Response Smoking Status Smoking tobacco use: Never tobacco user;Never entered on: 04/08/22 Sex Female Patient Care team information Care Team Personnel Name: Jerzy Vidal MD Position: Physician Member Role: Informed Provider Address: Address: [address] Care Team Related Persons Name: FRANCOIS PIERRE Address: Home Name: CESAR KNOX Address: Home
--- OUTSIDE RECORDS SUMMARY | 2024-02-24 01:12 | XMS_ITS | Continuity of Care Document ---
Author Organization [facility] Address [address] [place] [address] Care Team Providers Care Space Control Agent Name Role Phone Young Jerzy Severino Primary Care Physician [phone] Encounter [facility] Date(s): 12/30/22 - 12/30/[address] [address] Discharge Disposition: Home or Self Care Attending [...] Daily, # 90 cap, 0 Refill(s), Pharmacy: [facility] #58 173, cm, 04/12/22 13:04:00 EDT, Height/Length Dosing, 108, kg, 04/12/22 13:04:00 EDT, Weight Dosing Start Date: 08/09/22 Status: Ordered Eliquis 5 mg oral tablet See Instructions, TAKE ONE TABLET BY MOUTH TWICE A DAY, # 180 tab, 0 Refill(s), Pharmacy: [facility] #58, 173, cm, 10/22/22 10:35:00 EDT, Height/Length [...] pain, # 60 tab, 0 Refill(s), Pharmacy: [facility] #58, 173, cm, 11/17/22 15:06:00 EDT, Height/Length [...] Appendectomy and Drainage of Intraabdominal Abscess 3X2 [id number] 5POWER PORT Results Laboratory List Name Date .Manual Differential ([facility]CT[facility]) 12/30/22 ABO/Rh 12/30/22 Antibody Screen Gel 12/30/22 CBC w/ Diff 12/30/22 Comprehensive Metabolic Panel 12/30/22 Reticulocyte Count Automated 12/30/22 Most recent to oldest [Reference Range]: 1 WBC [5.0-10.0 x10^3/mcL] 3.8 x10^3/mcL *LOW* (12/30/22 11:05 AM) RBC [4.1-5.3 x10^6/mcL] 2.6 x10^6/mcL *LOW* (12/30/22 11:05 AM) Segs Man [40-75 %] 58 % (12/30/22 11:05 AM) Lymph Man [20-50 %] 30 % (12/30/22 11:05 AM) [place] Man [2-15 %] 3 % (12/30/22 11:05 AM) Eos Man [1-6 %] 9 % *HI* (12/30/22 11:05 AM) BUN [7-18 mg/dL] 30 mg/dL *HI* (12/30/22 11:05 AM) ABO/Rh Type A POS *Unknown* (12/30/22 11:05 AM) Glucose Level [74-106 mg/dL] 91 mg/dL (12/30/22 11:05 AM) Potassium Level [3.5-5.1 mmol/L] 3.7 mmo l/L (12/30/22 11:05 AM) MCV [80.0-96.0 fL] 108.2 fL *HI* (12/30/22 11:05 AM) RBC Morph Abnormal (12/30/2205 AM) AST [15-37 unit/L] 20 unit/L (12/30/22 11:05 AM) ALT [14-59 unit/L] 7 unit/L *LOW* (12/30/2205 AM) MCHC [31.0-35.0 g/dL] 30.9 g/dL *LOW* (12/30/22 11:05 AM) Sodium Level [136-145 mmol/L] 135 mmol/L *LOW* (12/30/22 11:05 AM) Hct [37.0-47.0 %] 27.8 % *LOW* (12/30/2205 AM) Calcium Level [8.5-10.1 mg/dL] 8.8 mg/dL (12/30/22 1105 AM) Albumin Level [3.4-5.0 g/dL] 2.8 g/dL *LOW* (12/30/22 11:05 AM) Protein Total [6.4-8.2 g/dL] 8.1 g/dL (12/30/22 11:05 AM) MCH [26.0-32.0 pg] 33.5 pg *HI* (12/30/22 11:05 AM) Bilirubin Total [0.2-1.0 mg/dL] 0.6 mg/d L (12/30/22 11:05 AM) Hgb [12.0-16.0 g/dL] 8.6 g/dL *LOW* (12/30/22 11:05 AM) Alk Phos [46-146 unit/L] 68 unit/L (12/30/22 11:05 AM) Band Man [0-5 %] 0 % (12/30/22 11:05 AM) Platelets [130-450 x10^3/mcL] 186 x10^3/ mcL (12/30/22 11:05 AM) CO2 [21-32 mmol/L] 32 mmol/L (12/30/22 11:05 AM) Reticulocyte % [0.5-2.4 %] 4.6 % *HI* (12/30/22 11:05 AM) Macrocyte Small (12/30/22 11:05 AM) eGFR Non-AA [>=60] 52 *LOW* (12/30/22 11:05 AM) eGFR AA [>=60] 52 *LOW* (12/30/22 11:05 AM) Chloride Level [98-107 mmol/L] 99 mmol/L (12/30/22 11:05 AM) RDW-CV [11.5-14.5 %] 20.4 % *HI* (12/30/22 11:05 AM) Slide Review Man Diff (12/30/22 11:05 AM) Abs Neut Man 2.2 x10^3/mcL *NA* (12/30/22 11:05 AM) Anisocyte Small (12/30/22 11:05 AM) Creatinine Level [0.55-1.02 mg/dL] 1.16 mg/dL *HI* (12/30/22 11:05 AM) Antibody Screen Gel Negative ABSC (12/30/22 11:05 AM) Baso Man [0-1 %] 0 % (12/30/22 11:05 AM) Social History Social History Type Response Smoking Status Smoking tobacco use: Never tobacco user;Never entered on: 04/08/22 Sex Female Patient Care team information Care Team Personnel Name: Jerzy Vidal MD Position: Physician Member Role: Informed Provider Address: Address: [address] [address]- [place] Care Team Related Persons Name: FRANCOIS PIERRE Name: CESAR KNOX
--- OUTSIDE RECORDS SUMMARY | 2024-02-24 01:12 | XMS_ITS | Continuity of Care Document ---
Author Organization [facility] Address [address] [place] [address] Care Team Providers Care Table Worker Packager Name Role Phone Jerzy Vidal Severino Primary Care Physician Encounter [facility] Date(s): 01/06/23 - 01/06/[address] [address] Discharge Disposition: Home or Self Care Attending [...] Daily, # 90 cap, 0 Refill(s), Pharmacy: [facility][id number] 173, cm, 04/12/22 13:04:00 EDT, Height/Length Dosing, 108, kg, 04/12/22 13:04:00 EDT, Weight Dosing Start Date: 08/09/22 Status: Ordered Eliquis 5 mg oral tablet See Instructions, TAKE ONE TABLET BY MOUTH TWICE A DAY, # 180 tab, 0 Refill(s), Pharmacy: [facility][id number], 173, cm, 10/22/22 10:35:00 EDT, Height/Length [...] pain, # 60 tab, 0 Refill(s), Pharmacy: [facility] #58, 173, cm, 11/17/22 15:06:00 EDT, Height/Length [...] Appendectomy and Drainage of Intraabdominal Abscess 3X2 [id number] 5POWER PORT Results Laboratory List Name Date .Manual Differential ([facility]CT[facility]) 01/06/23 ABO/Rh 01/06/23 Antibody Screen Gel 01/06/23 CBC w/ Diff 01/06/23 Comprehensive Metabolic Panel 01/06/23 Reticulocyte Count Automated 01/06/23 Most recent to oldest [Reference Range]: 1 WBC [5.0-10.0 x10^3/mcL] 4.2 x10^3/mcL *LOW* (01/06/23 10:56 AM) RBC [4.1-5.3 x10^6/mcL] 3.0 x10^6/mcL *LOW* (01/06/23 10:56 AM) Segs Man [40-75 %] 58 % (01/06/23 10:56 AM) Lymph Man [20-50 %] 28 % (01/06/23 10:56 AM) [place] Man [2-15 %] 1 % *LOW* (01/06/23 10:56 AM) Eos Man [1-6 %] 10 % *HI* (01/06/23 10:56 AM) BUN [7-18 mg/dL] 18 mg/dL (01/06/23 10:56 AM) ABO/Rh Type A POS *Unknown* (01/06/23 10:56 AM) Glucose Level [74-106 mg/dL] 83 mg/dL (01/06/23 10:56 AM) Potassium Level [3.5-5.1 mmol/L] 3.6 mmo l/L (01/06/23 10:56 AM) MCV [80.0-96.0 fL] 108.6 fL *HI* (01/06/23 10:56 AM) RBC Morph Abnormal (01/06/23 10:56 AM) AST [15-37 unit/L] 22 unit/L (01/06/23 10:56 AM) ALT [14-59 unit/L] 8 unit/L *LOW* (01/06/23 10:56 AM) MCHC [31.0-35.0 g/dL] 30.9 g/dL *LOW* (01/06/23 10:56 AM) Sodium Level [136-145 mmol/L] 136 mmol/L (01/06/23 10:56 AM) Hct [37.0-47.0 %] 32.7 % *LOW* (01/06/23 10:56 AM) Calcium Level [8.5-10.1 mg/dL] 9.1 mg/dL (01/06/23 10:56 AM) Albumin Level [3.4-5.0 g/dL] 3.0 g/dL *LOW* (01/06/23 10:56 AM) Protein Total [6.4-8.2 g/dL] 8.5 g/dL *HI* (01/06/23 10:56 AM) Poik Rare (01/06/23 10:56 AM) MCH [26.0-32.0 pg] 33.6 pg *HI* (01/06/23 10:56 AM) Bilirubin Total [0.2-1.0 mg/dL] 0.7 mg/d L (01/06/23 10:56 AM) Hgb [12.0-16.0 g/dL] 10.1 g/dL *LOW* (01/06/23 10:56 AM) Alk Phos [46-146 unit/L] 84 unit/L (01/06/23 10:56 AM) Band Man [0-5 %] 0 % (01/06/23 10:56 AM) Polychrom Rare (01/06/23 10:56 AM) Platelets [130-450 x10^3/mcL] 181 x10^3/ mcL (01/06/23 10:56 AM) CO2 [21-32 mmol/L] 33 mmol/L *HI* (01/06/23 10:56 AM) Reticulocyte % [0.5-2.4 %] 3.8 % *HI* (01/06/23 10:56 AM) Macrocyte Small (01/06/23 10:56 AM) eGFR Non-AA [>=60] 60 (01/06/23 10:56 AM) eGFR AA [>=60] 60 (01/06/23 10:56 AM) Chloride Level [98-107 mmol/L] 100 mmol/ L (01/06/23 10:56 AM) RDW-CV [11.5-14.5 %] 18.8 % *HI* (01/06/23 10:56 AM) Slide Review Man Diff (01/06/23 10:56 AM) Abs Neut Man 2.4 x10^3/mcL *NA* (01/06/23 10:56 AM) Anisocyte Small (01/06/23 10:56 AM) Creatinine Level [0.55-1.02 mg/dL] 1.04 mg/dL *HI* (01/06/23 10:56 AM) Antibody Screen Gel Negative ABSC (01/06/23 10:56 AM) Baso Man [0-1 %] 3 % *HI* (01/06/23 10:56 AM) Social History Social History Type Response Smoking Status Smoking tobacco use: Never tobacco user;Never entered on: 04/08/22 Sex Female Patient Care team information Care Team Personnel Name: Jerzy Vidal MD Position: Physician Member Role: Informed Provider Address: Address: [address] Care Team Related Persons Name: FRANCOSI PIERRE Name: CESAR KNOX
--- OUTSIDE RECORDS SUMMARY | 2024-02-24 01:12 | XMS_ITS | Continuity of Care Document ---
Author Organization [facility] Address [address] [place] [address] Care Team Providers Care Industrial Chemist Name Role Phone Jerzy Vidal Primary Care Physician [phone] Encounter [facility] Date(s): 08/11/22 - 08/12/[address] [address] Encounter Diagnosis Anemia(Discharge Diagnosis) - 08/11/22 Discharge Disposition: Home or Self Care Attending Physician: Josh Chavez MD Admitting Physician: Josh Chavez MD Allergies, Adverse Reactions, Alerts Substance Reaction Severity Status penicillins Unknown Active CARBOplatin Unknown Active Assessment and Plan Extracted from: Title:Clinical Document Author:Shirin Almonte te:08/12/22 Diagnosis: 1. Anemia Comment: Diagnosis: Abnormal laboratory findings Comment: Diagnosis: SOB - Shortness of breath Comment: Functional Status 08/11/22 Family Member Travel History No recent t [...] Daily, # 90 cap, 0 Refill(s), Pharmacy: [facility] #58, 173, cm, 04/12/22 13:04:00 EDT, Height/Length Dosing, 108, kg, 04/12/22 13:04:00 EDT, Weight Dosing Start Date: 08/09/22 Status: Ordered Eliquis 5 mg oral tablet 1 tab, Oral, BID, # 180 tab, 0 Refill(s), Pharmacy: [facility] #58, 173, cm, 04/12/22 13:04:00 EDT, Height/Length [...] Appendectomy and Drainage of Intraabdominal Abscess 3X2 15168 5POWER PORT Results Laboratory List Name Date ABO/Rh 08/11/22 Antibody Screen Gel 08/11/22 Basic Metabolic Panel 08/11/22 CBC w/ Diff 08/11/22 Iron Level and TIBC 08/11/22 NT- Pro BNP 08/11/22 Red Blood Cells 08/11/22 .Manual Differential (NCTY) 08/11/22 Most recent to oldest [Reference Range]: 1 WBC [5.0-10.0 x10^3/mcL] 4.2 x10^3/mcL *LOW* (08/11/22 5:42 PM) RBC [4.1-5.3 x10^6/mcL] 1.8 x10^6/mcL *LOW* (08/11/22 5:42 PM) Segs Man [40-75 %] 55 % (08/11/22 5:42 PM) Lymph Man [20-50 %] 10 % *LOW* (08/11/22 5:42 PM) [place] Man 35 % *NA* (08/11/22 5:42 PM) Eos Man 0 % *NA* (08/11/22 5:42 PM) BUN [7-18 mg/dL] 31 mg/dL *HI* (08/11/22 5:42 PM) ABO/Rh Type A POS *Unknown* (08/11/22 5:42 PM) Glucose Level [74-106 mg/dL] 119 mg/dL *HI* (08/11/22 5:42 PM) Potassium Level [3.5-5.1 mmol/L] 3.7 mmo l/L (08/11/22 5:42 PM) MCV [80.0-96.0] 103.9 *HI* (08/11/22 5:42 PM) RBC Morph Abnormal (08/11/22 5:42 PM) MCHC [31.0-35.0 g/dL] 30.1 g/dL *LOW* (08/11/22 5:42 PM) Sodium Level [136-145 mmol/L] 136 mmol/L (08/11/22 5:42 PM) Baso Stippling RBC Rare (08/11/22 5:42 PM) Hct [37.0-47.0 %] 18.6 % 1 *CRIT* (08/11/22 5:42 PM) Hypochromia Small (08/11/22 5:42 PM) Calcium Level [8.5-10.1 mg/dL] 8.7 mg/dL (08/11/22 5:42 PM) Iron Sat [20-55 %] 57 % *HI* (08/11/22 5:42 PM) Poik Rare (08/11/22 5:42 PM) MCH [26.0-32.0 pg] 31.3 pg (08/11/22 5:42 PM) Hgb [12.0-16.0 g/dL] 5.6 g/dL 2 *CRIT* (08/11/22 5:42 PM) Band Man [0-5 %] 0 % (08/11/22 5:42 PM) Polychrom Rare (08/11/22 5:42 PM) Platelets [130-450 x10^3/mcL] 238 x10^3/ mcL (08/11/22 5:42 PM) CO2 [21-32 mmol/L] 29 mmol/L (08/11/22 5:42 PM) TIBC [250-450 mcg/dL] 152 mcg/dL *LOW* (08/11/22 5:42 PM) Iron [50-170 mcg/dL] 87 mcg/dL (08/11/22 5:42 PM) Macrocyte Small (08/11/22 5:42 PM) eGFR Non-AA [>=60] 38 *LOW* (08/11/22 5:42 PM) eGFR AA [>=60] 38 *LOW* (08/11/22 5:42 PM) NT-proBNP [0-125 pg/mL] 4885 pg/mL *HI* (08/11/22 5:42 PM) Chloride Level [98-107 mmol/L] 99 mmol/L (08/11/22 5:42 PM) RBC Product Ready Done (08/11/22 5:42 PM) RDW-CV [11.7-17.0 %] 25.1 % *HI* (08/11/22 5:42 PM) Ovalocytes Small (08/11/22 5:42 PM) Abs Neut Man 2.3 x10^3/mcL *NA* (08/11/22 5:42 PM) Anisocyte Moderate (08/11/22 5:42 PM) Creatinine Level [0.55-1.02 mg/dL] 1.52 mg/dL *HI* (08/11/22 5:42 PM) Antibody Screen Gel Negative ABSC (08/11/22 5:42 PM) Baso Man [0-1 %] 0 % (08/11/22 5:42 PM) 1Result Comment: Called to and verbally verified by Dr. Chavez at _08/11/2022 17:55:56 EST. 2Resviridiana Comment: Called to and verbally verified by Dr. Chavez at _08/11/2022 17:54:55 EST. Vital Signs Most recent to oldest [Reference Range]: 1 2 3 Temperature Temporal Artery [36-38 Deg C] 37.4 Deg C (08/12/22 4:30 AM) 37.1 Deg C (08/12/22 3:30 AM) 36.9 Deg C (08/12/22 2:30 AM) Peripheral Pulse Rate [60-100 bpm] 79 bpm (08/12/22 5:01 AM) 76 bpm (08/12/22 4:30 AM) 79 bpm (08/12/22 4:00 AM) Heart Rate Monitored [60-100 bpm] 81 bpm (08/12/22 5:01 AM) 80 bpm (08/12/22 4:30 AM) 78 bpm (08/12/22 4:00 AM) Respiratory Rate [12-24 br/min] 25 br/min *HI* (08/12/22 5:01 AM) 22 br/min (08/12/22 4:30 AM) 21 br/min (08/12/22 4:00 AM) Blood Pressure [90-140/60-90 mmHg] 108/66mmHg (08/12/22 5:01 AM) 120/75mmHg (08/12/22 4:30 AM) 114/72mmHg (08/12/22 4:00 AM) Weight 117.00 kg (08/11/22 5:21 PM) Weight Dosing 117.00 kg (08/11/22 5:29 PM) Height 173.000 cm (08/11/22 5:21 PM) Height/Length Dosing 173.000 cm (08/11/22 5:29 PM) Body Mass Index 39.000 kg/m2 (08/11/22 5:21 PM) Social History Social History Type Response Smoking Status Smoking tobacco use: Never tobacco user;Never entered on: 04/08/22 Sex Female Hospital Discharge Instructions Patient Education 08/12/2022 03:31:00 Anemia Anemia Anemia is a condition in [...] Follow these instructions at home: ??? Take qird-yco-pvxvemz and prescription medicines only as told by [...] Reviewed: 05/06/2020 Elsevier Patient Education ?? 2021 [employer]. Follow Up Care 08/11/2022 17:21:37 With:Jerzy Vidal MD Address: [address] [address]- When:1 week Physician Emergency department Note * Harsh Jay MD: PERFORM Event Display: ED Note Physician Authored Date: [id number] BRAYAN PIERRE :1955 Age:67 years Sex:Female Visit Date:08/11/2022 Primary Care Physician: Jerzy Vidal MD Basic Information Time Seen: Harsh Jay MD / 08/11/2022 17:26 Chief Complaint I am having some SOB but I was told today by [facility] that my HGB was 5.2 PT pale on arriavl. Last Chemo 3 weeks ago History Of Present Illness: Very pleasant 67-year-old female with history of A-fib on Eliquis??also receiving chemotherapy for thymic carcinoma is??directed to the ER by her oncology team because of anemia with a hemoglobin of 5.7 today.?? Patient just started??pemetrexed??as the most recent??chemo agent and she was told she might get anemic with this.?? No chest pain no GI bleeding or hematuria or hemoptysis or bleeding anywhere's. ??No fever or chills. ??She does??have??peripheral edema for which she is on Lasix 80 a day.?? Despite that she feels the swelling is getting worse and is thought to be due to her??chemo or cancer I believe.?? No abdominal pain.?? She has some seeping of the??skin of her legs. ??She has some bandage on.?? She is to get??transfusions for 5 years ago on her first chemo GEN she was receiving back then.?? She was notified by her oncologist that the most resedated could lead to some anemia. Review of Systems: Constitutional:??no??fever,??no??chills,? Skin:??no??Jaundice,??no??rash,? Respiratory:??mild??shortness of breath,? Cardiovascular:??no??chest pain,??no??palpitations,??moderate??edema Gastrointestinal:??no??nausea,??no??vomiting,??no abdominal pain, no GI bleeding Genitourinary:??no??dysuria,??no??hematuria,? Musculoskeletal:??no??back pain,??no??trauma??positive for leg edema Neurologic:??no??headache,??no??dizziness,??no??numbness,??no??weakness ?? Physical Exam Vitals & Measurements T:??36.6?C ??(Temporal Artery)?? HR:??78??(Monitored)?? RR:??17?? BP:??98/57?? SpO2:??95%?? HT:??173.000??cm?? WT:??117.00??kg?? BMI:??39.000?? O2 Flow Rate:??2?? O2 Therapy:??Room air?? General:??alert,??no acute distress.?? Does not look septic or toxic, normal sat on room air??when she settled down. ??Although it is mentioned 88%??on nurses note, on my examination she was on room air at 97 to 98%.?? She looks somewhat pale. ??Does not look septic.?? No respiratory distress. Skin:??warm,??dry. Head:??no??trauma,??normocephalic. Neck:??trachea??midline,??no??adenopathy,??no??tenderness. Eye:??normal??conjunctiva, sclera??clear. Cardiovascular:??Irregular??rhythm noted, known A-fib. Respiratory:??Decreased breath sounds at the right base.?? No crackles or rales or rhonchi's. Chest wall:??no??deformity. Gastrointestinal:??soft,?? ,??no??tenderness,??no??guarding.?? Obese abdomen shows some pitting edema on the abdominal wall but otherwise no tenderness. Extremities:??Did show overlying where she has some seeping fluid noted, she has pitting edema bilaterally. Neurological:??oriented??x 4, LOC??appropriate for age, speech??normal. Psychiatric:??cooperative, affect??appropriate for age,?? Medical Decision Making: Differential diagnosis includes anemia due to??chemo. ??No GI bleeding or hematuria on history.?? Has a pleural effusion likely due to malignancy.?? Does have some significant??edema. ??Plan will be for the patient to receive 3 units of blood, extra dose of Lasix given IV.?? She is anticoagulated and will defer??any attempt at thoracentesis at this time??as the??pleural effusion??does not appear to be??massive at this time. ?? I reviewed the??x-ray report, patient does not have any pneumonia symptoms. ?? Medical Decision-Making: Clinical lab tests: ordered and reviewed -??Yes Tests in the radiology section of CPT??: ordered and reviewed -??Yes Tests in the medicine section of CPT??: ordered and reviewed -??Yes ? Review and summarize past medical records -??Yes Discuss the patient with other providers -??Yes Independent visualization of images, tracings, or specimens? Yes ?? We will sign out to Dr. Osei??as the patient will receive 3 units of blood and contingency plan will be for her to be discharged afterwards.?? She got some Lasix here with good urine output. ?? Procedure No Qualifying Data Assessment/Plan 1.??Anemia??D64.9 Orders: CV EKG ED, 08/11/22 17:32:00 EST, Stat, Reason: Chest Pain, Stop date and time 08/11/22 17:32:00 EST, ORD_SET_REQ_DT_RANGE, [facility]'s Internal Person Id Medication Reconciliation Unchanged apixaban (Eliquis 5 mg [...] access device maintenance Medication Administration Given Lasix, 40 mg, IV Push Allergies CARBOplatin penicillins Social History Alcohol Never Electronic Cigarette/Vaping Electronic Cigarette Use: Never. Employment/School disability Home/Environment Lives with Children, Sons children. Substance Use Never Tobacco Never tobacco user Tobacco Use:. Never Smokeless Tobacco use:. Family History Arthritis: Father and Sister. Cancer: Mother. Hydrocephalus: Father (Dx at 77). Diagnostic Results ECG EKG as interpreted by me shows A-fib, low voltage noted, no acute ischemic change. Diagnostic Study Interpretation: Dust x-ray shows some bilateral pleural effusions. Lab Results CBC and Differential?? LATEST RESULTS?? HISTORICAL RESULTS?? WBC?? 08/11/22 17:42?? 4.2 ??Low?? 08/11/22?? 4.1 ??Low?? RBC?? 08/11/22 17:42?? 1.8 ??Low?? 08/11/22?? 1.8 ??Low?? Hgb?? 08/11/22 17:42?? 5.6 ??Critical?? 08/11/22?? 5.7 ??Critical?? Hct?? 08/11/22 17:42?? 18.6 ??Critical?? 08/11/22?? 18.9 ??Critical?? MCV?? 08/11/22 17:42?? 103.9 ??High?? 08/11/22?? 102.7 ??High?? MCH?? 08/11/22 17:42?? 31.3?? 08/11/22?? 31.0?? MCHC?? 08/11/22 17:42?? 30.1 ??Low?? 08/11/22?? 30.2 ??Low?? RDW-CV?? 08/11/22 17:42?? 25.1 ??High?? 08/11/22?? 24.9 ??High?? Platelets?? 08/11/22 17:42?? 238?? 08/11/22?? 233?? Segs Man?? 08/11/22 17:42?? 55?? 08/11/22?? 66?? Lymph Man?? 08/11/22 17:42?? 10 ??Low?? 08/11/22?? 10 ??Low?? [place] Man?? 08/11/22 17:42?? 35?? 08/11/22?? 21?? Eos Man?? 08/11/22 17:42?? 0?? 08/11/22?? 2?? Baso Man?? 08/11/22 17:42?? 0?? 08/11/22?? 0?? Band Man?? 08/11/22 17:42?? 0?? 08/11/22?? 0?? Abs Neut Man?? 08/11/22 17:42?? 2.3?? 08/11/22?? 2.7?? RBC Morph?? 08/11/22 17:42?? Abnormal?? 08/11/22?? Abnormal?? Anisocyte?? 08/11/22 17:42?? Moderate?? 08/11/22?? Moderate?? Baso Stippling RBC?? 08/11/22 17:42?? Rare?? 06/16/22?? Rare?? Hypochromia?? 08/11/22 17:42?? Small?? 08/11/22?? Small?? Macrocyte?? 08/11/22 17:42?? Small?? 06/16/22?? Rare?? Ovalocytes?? 08/11/22 17:42?? Small?? 08/11/22?? Moderate?? Poik?? 08/11/22 17:42?? Rare?? 08/11/22?? Rare?? Polychrom?? 08/11/22 17:42?? Rare?? 07/14/22?? Rare? Routine Chemistry?? LATEST RESULTS?? HISTORICAL RESULTS?? Sodium Level?? 08/11/22 17:42?? 136?? 08/11/22?? 137?? Potassium Level?? 08/11/22 17:42?? 3.7?? 08/11/22?? 4.2?? Chloride Level?? 08/11/22 17:42?? 99?? 08/11/22?? 101?? CO2?? 08/11/22 17:42?? 29?? 08/11/22?? 30?? BUN?? 08/11/22 17:42?? 31 ??High?? 08/11/22?? 30 ??High?? Glucose Level?? 08/11/22 17:42?? 119 ??High?? 08/11/22?? 96?? Creatinine Level?? 08/11/22 17:42?? 1.52 ??High?? 08/11/22?? 1.52 ??High?? eGFR AA?? 08/11/22 17:42?? 38 ??Low?? 08/11/22?? 38 ??Low?? eGFR Non-AA?? 08/11/22 17:42?? 38 ??Low?? 08/11/22?? 38 ??Low?? Calcium Level?? 08/11/22 17:42?? 8.7?? 08/11/22?? 9.0?? Iron?? 08/11/22 17:42?? 87?? 02/11/22?? 18 ??Low?? TIBC?? 08/11/22 17:42?? 152 ??Low?? 02/11/22?? 162 ??Low?? Iron Sat?? 08/11/22 17:42?? 57 ??High?? 02/11/22?? 11 ??Low? Cardiac Isoenzymes?? LATEST RESULTS?? HISTORICAL RESULTS?? NT-proBNP?? 08/11/22 17:42?? 4885 ??High?? 04/02/22?? 2792 ??High? Transfusion Medicine Testing?? LATEST RESULTS?? ABO/Rh Type?? 08/11/22 17:42?? A POS?? Antibody Screen Gel?? 08/11/22 17:42?? Negative ABSC?? RBC Product Ready?? 08/11/22 17:42?? Done? Crossmatch Summary?? LATEST RESULTS?? Crossmatch - IS?? 08/11/22 17:42?? Compatible? Electronically Signed on 08/11/22 09:10 PM Harsh Jay MD Emergency department Discharge instructions * Alex Osei MD: PERFORM Event Display: ED Discharge Information Authored Date: [id number] IGNACIO BRAYAN L :1955 Age:67 years Sex:Female Visit Date:08/11/2022 Primary Care Physician: Jerzy Vidal MD Discharge Instructions We would like to thank you for allowing us to assist you with your healthcare needs. The following includes patient education materials and information regarding your injury/illness. Diagnosis from Today's Visit Anemia Discharge Vitals Temperature??(Temporal Artery) 98.8 ??F (37.1 ??C) Heart Rate??(Peripheral) 83 Heart Rate??(Monitored) 85 Respiratory Rate?? 26 Blood Pressure?? 114/75?? Height?? 68.11 in (173.000 cm) Weight?? 257.98 lb (117.00 kg) BMI?? 39.000 Allergies CARBOplatin penicillins What to Do Next Instructions from Your Care Team Thank you for coming to the emergency department tonight, it has been our pleasure to take care of you.?? Your hemoglobin today was 5.2 and we gave you 3 units of packed red blood cells.?? Please follow-up with Dr. Vidal in the next week for??recheck and to ensure that you are continuing to feel better. ??Please return to the emergency department if you have any new or concerning symptoms??including any new chest pain, trouble breathing, weakness, fever, chills, or if you have any other symptoms or concerns. You Need to Schedule the Following Appointments Follow Up with??Jerzy Vidal MD When:??Within 1 week Where: [facility] [address] [id number]- You were treated today on an emergency [...] How Much When Instructions Next Dose Unchanged apixaban (Eliquis 5 mg oral tablet) 1 tab Oral (given by mouth) 2 times a day Unchanged dilTIAZem (DilTIAZem (Eqv-Tiazac) 240 mg/ 24 hours oral capsule, extended release) 1 Capsules Oral (given by mouth) Every day Unchanged levothyroxine (levothyroxine 150 mcg (0.15 mg) [...] Follow these instructions at home: ? Take xqjr-jcb-ndynfeq and prescription medicines only as told by [...] provider. Document Revised: 05/06/2020 Document Reviewed: 05/06/2020 [employer] Patient Education ?? 2021 [employer] Tests Performed Medications and Immunizations Administered Given Lasix, 40 mg, IV Push Lab Test Name Test Result Date/Time WBC 4.2 x10^3/mcL 08/11/2022 17:42 EST RBC 1.8 x10^6/mcL 08/11/2022 17:42 EST Hgb 5.6 g/dL 08/11/2022 17:42 EST Hct 18.6 % 08/11/2022 17:42 EST MCV 103.9 08/11/2022 17:42 EST MCH 31.3 pg 08/11/2022 17:42 EST MCHC 30.1 g/dL 08/11/2022 17:42 EST RDW-CV 25.1 % 08/11/2022 17:42 EST Platelets 238 x10^3/mcL 08/11/2022 17:42 EST Segs Man 55 % 08/11/2022 17:42 EST Lymph Man 10 % 08/11/2022 17:42 EST [place] Man 35 % 08/11/2022 17:42 EST Eos Man 0 % 08/11/2022 17:42 EST Baso Man 0 % 08/11/2022 17:42 EST Band Man 0 % 08/11/2022 17:42 EST Abs Neut Man 2.3 x10^3/mcL 08/11/2022 17:42 EST RBC Morph Abnormal 08/11/2022 17:42 EST Anisocyte Moderate 08/11/2022 17:42 EST Baso Stippling RBC Rare 08/11/2022 17:42 EST Hypochromia Small 08/11/2022 17:42 EST Macrocyte Small 08/11/2022 17:42 EST Ovalocytes Small 08/11/2022 17:42 EST Poik Rare 08/11/2022 17:42 EST Polychrom Rare 08/11/2022 17:42 EST Sodium Level 136 mmol/L 08/11/2022 17:42 EST Potassium Level 3.7 mmol/L 08/11/2022 17:42 EST Chloride Level 99 mmol/L 08/11/2022 17:42 EST CO2 29 mmol/L 08/11/2022 17:42 EST BUN 31 mg/dL 08/11/2022 17:42 EST Glucose Level 119 mg/dL 08/11/2022 17:42 EST Creatinine Level 1.52 mg/dL 08/11/2022 17:42 EST eGFR AA 38 08/11/2022 17:42 EST eGFR Non-AA 38 08/11/2022 17:42 EST Calcium Level 8.7 mg/dL 08/11/2022 17:42 EST Iron 87 mcg/dL 08/11/2022 17:42 EST TIBC 152 mcg/dL 08/11/2022 17:42 EST Iron Sat 57 % 08/11/2022 17:42 EST NT-proBNP 4885 pg/mL 08/11/2022 17:42 EST ABO/Rh Type A POS 08/11/2022 17:42 EST Antibody Screen Gel Negative ABSC 08/11/2022 17:42 EST RBC Product Ready Done 08/11/2022 17:42 EST Crossmatch - IS Compatible 08/11/2022 17:42 EST Patient/Hand Sewer Signature Patient Name:IGNACIO, BRAYAN L I have received this information and my questions have been answered. Patient/Hand Sewer Name: Patient/Hand Sewer Signature: Relationship to Patient: Witness Name/Signature: Date: Electronically Signed on: 08/12/2022 04:31 ESTSigned by:[facility] Emergency department Note * Sharri Soto: PERFORM Event Display: ED Notes Authored Date: [id number] Discharge summary * Shirin Almonte: PERFORM Event Display: Discharge Note Authored Date: [id number] * Shirin Almonte: PERFORM Event Display: Discharge Note Authored Date: Diagnosis: 1. Anemia Comment: Diagnosis: Abnormal laboratory findings Comment: Diagnosis: SOB - Shortness of breath Comment: Electronically Signed on 08/12/22 06:27 AM Shirin Almonte Patient Care team information Care Team Personnel Name: Jerzy Vidal MD Position: Physician Member Role: Informed Provider Address: Address: [facility] [address] Name: Harsh Jay MD Position: Physician Member Role: ED Physician Address: Address: [address] [place] [address] Name: Maryann Carcamo RN Position: Nurse Member Role: ED Nurse Name: Viki Norris Position: Nurse Member Role: ED Nurse Care Team Related Persons Name: FRANCOIS PIERRE Address: Home Name: FRANCOIS PIERRE Address: Home Name: CESAR [place] Address: Home
--- OUTSIDE RECORDS SUMMARY | 2024-02-24 01:12 | XMS_ITS | Continuity of Care Document ---
Author Organization [facility] Address [address] [place] [address] Care Team Providers Care Toll Service Observer Name Role Phone Jerzy Vidal Primary Care Physician [phone] Encounter [facility] Date(s): 10/14/22 - 10/14/[address] [address] Discharge Disposition: Home or Self Care Attending Physician: Shon Schneider MD Admitting Physician: Shon Schneidre MD Referring Physician: Shon Schneider MD Allergies, [...] Daily, # 90 cap, 0 Refill(s), Pharmacy: [facility] #[id number], 173, cm, 04/12/22 13:04:00 EDT, Height/Length Dosing, 108, kg, 04/12/22 13:04:00 EDT, Weight Dosing Start Date: 08/09/22 Status: Ordered Eliquis 5 mg oral tablet 1 tab, Oral, BID, # 180 tab, 0 Refill(s), Pharmacy: [facility] #58, 173, cm, 04/12/22 13:04:00 EDT, Height/Length [...] Appendectomy and Drainage of Intraabdominal Abscess 3X2 [id number] 5POWER PORT Results Laboratory List Name Date .Manual Differential (NCTY) 10/14/22 CBC w/ Diff 10/14/22 Comprehensive Metabolic Panel 10/14/22 Most recent to oldest [Reference Range]: 1 WBC [5.0-10.0 x10^3/mcL] 3.7 x10^3/mcL *LOW* (10/14/22 10:45 AM) RBC [4.1-5.3 x10^6/mcL] 2.8 x10^6/mcL *LOW* (10/14/22 10:45 AM) Segs Man [40-75 %] 92 % *HI* (10/14/22 10:45 AM) Lymph Man [20-50 %] 7 % *LOW* (10/14/22 10:45 AM) [place] Man 0 % *NA* (10/14/22 10:45 AM) Eos Man 0 % *NA* (10/14/22 10:45 AM) BUN [7-18 mg/dL] 29 mg/dL *HI* (10/14/22 10:45 AM) Glucose Level [74-106 mg/dL] 93 mg/dL (10/14/22 10:45 AM) Potassium Level [3.5-5.1 mmol/L] 4.6 mmo l/L (10/14/22 10:45 AM) MCV [80.0-96.0 fL] 100.4 fL *HI* (10/14/22 10:45 AM) RBC Morph Abnormal (10/14/22 10:45 AM) AST [15-37 unit/L] 18 unit/L (10/14/22 10:45 AM) ALT [14-59 unit/L] 8 unit/L *LOW* (10/14/22 10:45 AM) MCHC [31.0-35.0 g/dL] 30.7 g/dL *LOW* (10/14/22 10:45 AM) Sodium Level [136-145 mmol/L] 133 mmol/L *LOW* (10/14/22 10:45 AM) Hct [37.0-47.0 %] 28.0 % *LOW* (10/14/22 10:45 AM) Calcium Level [8.5-10.1 mg/dL] 8.9 mg/dL (10/14/22 10:45 AM) Albumin Level [3.4-5.0 g/dL] 2.5 g/dL *LOW* (10/14/22 10:45 AM) Protein Total [6.4-8.2 g/dL] 7.9 g/dL (10/14/22 10:45 AM) MCH [26.0-32.0 pg] 30.8 pg (10/14/22 10:45 AM) Bilirubin Total [0.2-1.0 mg/dL] 1.4 mg/d L *HI* (10/14/22 10:45 AM) Hgb [12.0-16.0 g/dL] 8.6 g/dL *LOW* (10/14/22 10:45 AM) Alk Phos [46-146 unit/L] 63 unit/L (10/14/22 10:45 AM) Band Man [0-5 %] 0 % (10/14/22 10:45 AM) Platelets [130-450 x10^3/mcL] 68 x10^3/m cL *LOW* (10/14/22 10:45 AM) CO2 [21-32 mmol/L] 32 mmol/L (10/14/22 10:45 AM) Macrocyte Rare (10/14/22 10:45 AM) eGFR Non-AA [>=60] 55 *LOW* (10/14/22 10:45 AM) eGFR AA [>=60] 55 *LOW* (10/14/22 10:45 AM) Chloride Level [98-107 mmol/L] 98 mmol/L (10/14/22 10:45 AM) RDW-CV [11.7-17.0 %] 17.2 % *HI* (10/14/22 10:45 AM) Abs Neut Man 3.4 x10^3/mcL *NA* (10/14/22 10:45 AM) Anisocyte Small (10/14/22 10:45 AM) Creatinine Level [0.55-1.02 mg/dL] 1.12 mg/dL *HI* (10/14/22 10:45 AM) Baso Man [0-1 %] 1 % (10/14/22 10:45 AM) Social History Social History Type Response Smoking Status Smoking tobacco use: Never tobacco user;Never entered on: 04/08/22 Sex Female Patient Care team information Care Team Personnel Name: Jerzy Vidal MD Position: Physician Member Role: Informed Provider Address: Address: [id number] [place] [address] Care Team Related Persons Name: FRANCOIS PIERRE Address: Home Name: FRANCOIS PIERRE Address: Home Name: [address] [place] Address: Home
--- OUTSIDE RECORDS SUMMARY | 2024-02-24 01:12 | XMS_ITS | Continuity of Care Document ---
Author Organization [facility] Address [address] [place] [address] Care Team Providers Care Construction Site Manager Name Role Phone Jerzy Vidal Primary Care Physician [phone] Encounter [facility] Date(s): 09/17/22 - 09/17/[address] [address] Discharge Disposition: Home or Self Care Attending Physician: Shon Schneider MD Admitting Physician: Shon Schneider MD Allergies, Adverse Reactions, Alerts Substance Reaction Severity Status penicillins Unknown Active CARBOplatin Unknown Active Assessment and Plan Diagnostic Tests Pending * Haptoglobin [facility] 09/17/22 Immunizations Given and Recorded Vaccine Date Status Refusal Reason SARS-CoV-2 (COVID-19) mRNA-1273 vaccine 09/26/20 R ecorded SARS-CoV-2 (COVID-19) mRNA-1273 vaccine 08/28/20 R ecorded pneumococcal 23-polyvalent vaccine 05/17/14 Record ed tetanus/diphth/pertuss (Tdap) adult/adol 03/08/14 Recorded influenza virus vaccine, inactivated 03/08/14 Victor M rded Medications DilTIAZem (Eqv-Tiazac) 240 mg/24 hours oral capsule, extended release 1 cap, Oral, Daily, # 90 cap, 0 Refill(s), Pharmacy: [facility] #58, 173, cm, 04/12/22 13:04:00 EDT, Height/Length Dosing, 108, kg, 04/12/22 13:04:00 EDT, Weight Dosing Start Date: 08/09/22 Status: Ordered Eliquis 5 mg oral tablet 1 tab, Oral, BID, # 180 tab, 0 Refill(s), Pharmacy: [id number], 173, cm, 04/12/22 13:04:00 EDT, Height/Length [...] Appendectomy and Drainage of Intraabdominal Abscess [id number] 5POWER PORT Results Laboratory List Name Date DEBRA Poly Gel 09/17/22 Reticulocyte Count Automated 09/17/22 Most recent to oldest [Reference Range]: 1 Reticulocyte % [0.5-2.4 %] 4.0 % *HI* (09/17/22 3:30 PM) DEBRA Poly Gel Negative (09/17/22 3:30 PM) Social History Social History Type Response Smoking Status Smoking tobacco use: Never tobacco user;Never entered on: 04/08/22 Sex Female Patient Care team information Care Team Personnel Name: Jerzy Vidal MD Position: Physician Member Role: Informed Provider Address: Address: [address] Care Team Related Persons Name: FRANCOIS PIERRE Address: Home Name: FRANCOIS PIERRE Address: Home Name: CESAR KNOX Address: Home
--- OUTSIDE RECORDS SUMMARY | 2024-02-24 01:12 | XMS_ITS | Continuity of Care Document ---
Author Organization [facility] Address [address] [place] [address] Care Team Providers Care Sports Marketing Internship Name Role Phone Jerzy Vidal Primary Care Physician Encounter [facility] Date(s): 04/05/22 - 04/05/[address] [address] Encounter Diagnosis Malignant neoplasm of thymus(Final) - Discharge Disposition: Home or Self Care Attending [...] Appendectomy and Drainage of Intraabdominal Abscess 3X2 65615 Social History Social History Type Response Smoking Status Smoking tobacco use: Never tobacco user;Never entered on: 11/23/21 Sex Female Patient Care team information Personnel Name: Jerzy Vidal MD Address: Address: [address]
--- OUTSIDE RECORDS SUMMARY | 2024-02-24 01:12 | XMS_ITS | Continuity of Care Document ---
Author Organization [facility] Address [address] [place] [address] Care Team Providers Care Folding Machine Feeder Name Role Phone Young Jerzy Severino Primary Care Physician Encounter [facility] Date(s): 12/02/22 - 12/02/22 [facility] [address] [place] [address] Discharge Disposition: Home or Self Care Attending [...] Daily, # 90 cap, 0 Refill(s), Pharmacy: [facility] #58, 173, cm, 04/12/22 13:04:00 EDT, Height/Length Dosing, 108, kg, 04/12/22 13:04:00 EDT, Weight Dosing Start Date: 08/09/22 Status: Ordered Eliquis 5 mg oral tablet See Instructions, TAKE ONE TABLET BY MOUTH TWICE A DAY, # 180 tab, 0 Refill(s), Pharmacy: [facility] #58, 173, cm, 10/22/22 10:35:00 EDT, Height/Length Dosing, 117, kg, 10/22/22 10:35:00 EDT, Weight Dosing Start Date: 11/14/22 Status: Ordered Eliquis 5 mg oral tablet 1 tab, Oral, BID, # 180 tab, 0 Refill(s), Pharmacy: [facility] #58, 173, cm, 04/12/22 13:04:00 EDT, Height/Length [...] Appendectomy and Drainage of Intraabdominal Abscess 3X2 81889 5POWER PORT Vital Signs Most recent to oldest [Reference Range]: 1 2 3 Temperature Temporal Artery [36-38 Deg C] 36.7 Deg C (12/02/22 1:53 PM) 36.9 Deg C (12/02/22 12:40 PM) 36.5 Deg C (12/02/22 11:58 AM) Peripheral Pulse Rate [60-100 bpm] 89 bpm (12/02/22 1:53 PM) 79 bpm (12/02/22 12:40 PM) 74 bpm (12/02/22 11:58 AM) Respiratory Rate [12-24 br/min] 16 br/min (12/02/22 1:53 PM) 16 br/min (12/02/22 12:40 PM) 16 br/min (12/02/22 11:58 AM) Blood Pressure [90-140/60-90 mmHg] 105/64mmHg (12/02/22 1:53 PM) 92/60mmHg (12/02/22 12:40 PM) 93/66mmHg (12/02/22 11:58 AM) Mean Arterial Pressure Cuff 76 mmHg (12/02/22 1:53 PM) 70 mmHg (12/02/22 12:40 PM) 76 mmHg (12/02/22 11:58 AM) Blood Pressure Location Right arm (12/02/22 1:53 PM) Right arm (12/02/22 12:40 PM) Right arm (12/02/22 11:58 AM) Blood Pressure Method Automatic (12/02/22 1:53 PM) Automatic (12/02/22 12:40 PM) Automatic (12/02/22 11:58 AM) Social History Social History Type Response Smoking Status Smoking tobacco use: Never tobacco user;Never entered on: 04/08/22 Sex Female Patient Care team information Care Team Personnel Name: Jerzy Vidal MD Position: Physician Member Role: Informed Provider Address: Address: [address] [address] [place] Care Team Related Persons Name: FRANCOIS PIERRE Address: Home Name: CESAR KNOX Address: Home
--- OUTSIDE RECORDS SUMMARY | 2024-02-24 01:12 | XMS_ITS | Continuity of Care Document ---
Author Organization [facility] Address [address] [place] [address] Care Team Providers Care Bulker Name Role Phone Young Jerzy Severino Primary Care Physician [phone] Encounter [facility] Date(s): 04/26/23 - 04/26/[address] [address] Discharge Disposition: Home or Self Care Attending Physician: Shon Schneider MD Admitting Physician: Shon Schneider MD Referring Physician: Shon Schneider MD Allergies, Adverse Reactions, Alerts Substance Reaction Severity Status penicillins Unknown Active CARBOplatin Unknown Active Kiwi 1 Other (See Comments) Itching Severe Active Pollen 2 Other (See Comments) Unknown Active 1Outside Source Comment: Mouth swelling 2Outside Source Comment: rhinorrhea Immunizations Given and Recorded Vaccine Date Status [...] Daily, # 90 cap, 0 Refill(s), Pharmacy: [facility] #58, 173, cm, 04/12/22 13:04:00 EDT, Height/Length Dosing, 108, kg, 04/12/22 13:04:00 EDT, Weight Dosing Start Date: 08/09/22 Status: Ordered Eliquis 5 mg oral tablet See Instructions, TAKE ONE TABLET BY MOUTH TWICE A DAY, # 180 tab, 0 Refill(s), Pharmacy: [facility] #58, 173, cm, 10/22/22 10:35:00 EDT, Height/Length Dosing, 117, kg, 10/22/22 10:35:00 EDT, Weight Dosing Start Date: 11/14/22 Status: Ordered furosemide 80 mg oral tablet 40 mg = 0.5 tab, Take 40mg daily per [facility] K[facility]BERLY Calles, 0 Refill(s) Start Date: 11/17/22 Status: Ordered levothyroxine 150 mcg (0.15 mg) oral tablet 150 mcg = 1 tab, Oral, Daily Start Date: 11/25/21 Status: Ordered lidocaine 5% patch 1 patches, Topical, Daily, Leave on for 12 hours and remove for 12 hours. KIMBERLY Calles [facility] # 30 patches, 3 Refill(s) Start Date: 02/04/23 Status: Ordered magnesium oxide 400 mg (241.3 mg elemental magnesium) oral tablet 400 mg = 1 tab, Oral, TID Start Date: 11/25/21 Status: Ordered potassium acetate 0 Refill(s) Start Date: 04/02/22 Status: Ordered traMADol 50 mg oral tablet 50 mg = 1 tab, Oral, every 12 hr, PRN as needed for pain, # 60 tab, 0 Refill(s), Pharmacy: [facility] #58, 173, cm, 11/17/22 15:06:00 EDT, Height/Length [...] Procedure Date Related Diagnosis Body Site Status Transcatheter aortic valve r eplacement 1 01/18/23 Completed Thoracentesis 04/11/22 Completed Thoracentesis 2 08/18/20 Completed Biopsy of breast 03/24/17 Complete d Laparoscopy 3 06/12/01 Completed Elective delivery 4 Completed Hernia repair umbilical 5 Completed Venous access device maintenance 6 Completed 1[facility] 2550 mL clear yellow fluid removed from left side 3Exploratory Laparotomy w/ Appendectomy and Drainage of Intraabdominal Abscess 4X2 36995 6POWER PORT Results Laboratory List Name Date Automated Diff 04/26/23 CBC w/ Diff 04/26/23 Comprehensive Metabolic Panel 04/26/23 Most recent to oldest [Reference Range]: 1 WBC [5.0-10.0 x10^3/mcL] 5.7 x10^3/mcL (04/26/23 3:00 PM) RBC [4.1-5.3 x10^6/mcL] 3.5 x10^6/mcL *LOW* (04/26/23 3:00 PM) Neutro Auto [40.0-75.0 %] 65.4 % (04/26/23 3:00 PM) Lymph Auto [20.0-50.0 %] 13.3 % *LOW* (04/26/23 3:00 PM) [place] Auto [2.0-15.0 %] 12.3 % (04/26/23 3:00 PM) Basophil Auto [0.0-1.0 %] 1.1 % *HI* (04/26/23 3:00 PM) BUN [7-18 mg/dL] 24 mg/dL *HI* (04/26/23 3:00 PM) Glucose Level [74-106 mg/dL] 98 mg/dL (04/26/23 3:00 PM) Potassium Level [3.5-5.1 mmol/L] 3.9 mmo l/L (04/26/23 3:00 PM) MCV [80.0-96.0 fL] 100.3 fL *HI* (04/26/23 3:00 PM) AST [15-37 unit/L] 18 unit/L (04/26/23 3:00 PM) ALT [14-59 unit/L] 17 unit/L (04/26/23 3:00 PM) MCHC [31.0-35.0 g/dL] 32.4 g/dL (04/26/23 3:00 PM) Sodium Level [136-145 mmol/L] 138 mmol/L (04/26/23 3:00 PM) Hct [37.0-47.0 %] 35.2 % *LOW* (04/26/23 3: PM) Calcium Level [8.5-10.1 mg/dL] 9.6 mg/dL (04/26/23 3:00 PM) Albumin Level [3.4-5.0 g/dL] 3.6 g/dL (04/26/23 3:00 PM) Protein Total [6.4-8.2 g/dL] 8.0 g/dL (04/26/23 3:00 PM) MCH [26.0-32.0 pg] 32.5 pg *HI* (04/26/23 3:00 PM) Neutro Absolute 3.7 x10^3/mcL *NA* (04/26/23 3:00 PM) Bilirubin Total [0.2-1.0 mg/dL] 0.7 mg/d L (04/26/23 3:00 PM) Hgb [12.0-16.0 g/dL] 11.4 g/dL *LOW* (04/26/23 3:00 PM) Alk Phos [46-146 unit/L] 60 unit/L (04/26/23 3:00 PM) Platelets [130-450 x10^3/mcL] 127 x10^3/ mcL *LOW* (04/26/23 3:00 PM) CO2 [21-32 mmol/L] 31 mmol/L (04/26/23 3:00 PM) eGFR Non-AA [>=60] 72 (04/26/23 3:00 PM) eGFR AA [>=60] 72 (04/26/23 3:00 PM) Chloride Level [98-107 mmol/L] 101 mmol/ L (04/26/23 3:00 PM) RDW-CV [11.5-14.5 %] 13.8 % (04/26/23 3:00 PM) Imm Gran Auto [0.0-0.9 %] 0.4 % (04/26/23 3:00 PM) Creatinine Level [0.55-1.02 mg/dL] 0.89 mg/dL (04/26/23 3:00 PM) Eos, Auto [1.0-6.0 %] 7.5 % *HI* (04/26/23 3:00 PM) Social History Social History Type Response Smoking Status Smoking tobacco use: Never tobacco user;Never entered on: 04/08/22 Sex Female Patient Care team information Care Team Personnel Name: Jerzy Vidal MD Position: Physician Member Role: Informed Provider Address: Address: [address] Care Team Related Persons Name: FRANCOIS PIERRE Name: CESAR KNOX
--- OUTSIDE RECORDS SUMMARY | 2024-02-24 01:12 | XMS_ITS | Continuity of Care Document ---
Author Organization [facility] Address [address] [place] [address] Care Team Providers Care Medical Nurse Name Role Phone Jerzy Vidal Severino Primary Care Physician Encounter [place] Date(s): 01/06/23 - 01/06/[address] [address] Discharge Disposition: Home or Self Care Attending [...] Daily, # 90 cap, 0 Refill(s), Pharmacy: [facility] #58 173, cm, 04/12/22 13:04:00 EDT, Height/Length Dosing, 108, kg, 04/12/22 13:04:00 EDT, Weight Dosing Start Date: 08/09/22 Status: Ordered Eliquis 5 mg oral tablet See Instructions, TAKE ONE TABLET BY MOUTH TWICE A DAY, # 180 tab, 0 Refill(s), Pharmacy: [facility] #58, 173, cm, 10/22/22 10:35:00 EDT, Height/Length [...] pain, # 60 tab, 0 Refill(s), Pharmacy: [facility] #58, 173, cm, 11/17/22 15:06:00 EDT, Height/Length [...] Appendectomy and Drainage of Intraabdominal Abscess 3X2 76214 5POWER PORT Social History Social History Type Response Smoking Status Smoking tobacco use: Never tobacco user;Never entered on: 04/08/22 Sex Female Patient Care team information Care Team Personnel Name: Jerzy Vidal MD Position: Physician Member Role: Informed Provider Address: Address: [address] Care Team Related Persons Name: FRANCOIS PIERRE Name: CESAR KNOX
--- OUTSIDE RECORDS SUMMARY | 2024-02-24 01:12 | XMS_ITS | Continuity of Care Document ---
Author Organization [facility] Address [address] [place] [address] Care Team Providers Care Take Out Waiter/Waitress Name Role Phone YoungJerzy magana Severino Primary Care Physician [phone] Encounter [place] Date(s): 12/10/22 - 12/10/[address] [address] Discharge Disposition: Home or Self Care Attending Physician: So Gaytan MD Admitting Physician: So Gaytan MD Referring Physician: So Gaytan MD Allergies, Adverse Reactions, Alerts Substance Reaction [...] Daily, # 90 cap, 0 Refill(s), Pharmacy: [facility] #58 173, cm, 04/12/22 13:04:00 EDT, Height/Length Dosing, 108, kg, 04/12/22 13:04:00 EDT, Weight Dosing Start Date: 08/09/22 Status: Ordered Eliquis 5 mg oral tablet See Instructions, TAKE ONE TABLET BY MOUTH TWICE A DAY, # 180 tab, 0 Refill(s), Pharmacy: [facility] #58, 173, cm, 10/22/22 10:35:00 EDT, Height/Length [...] pain, # 60 tab, 0 Refill(s), Pharmacy: [facility] #58, 173, cm, 11/17/22 15:06:00 EDT, Height/Length [...] Appendectomy and Drainage of Intraabdominal Abscess 3X2 70888 5POWER PORT Results Laboratory List Name Date Red Blood Cells 12/09/22 Most recent to oldest [Reference Range]: 1 RBC Product Ready Done (12/09/22 10:01 AM) Vital Signs Most recent to oldest [Reference Range]: 1 2 3 Temperature Temporal Artery [36-38 Deg C] 36.3 Deg C (12/10/22 4:55 PM) 36.1 Deg C (12/10/22 3:40 PM) 36.3 Deg C (12/10/22 2:44 PM) Temperature Temporal Artery (DegF) [97.3-100 Deg F] 97.34 Deg F (12/10/22 2:44 PM) 96.62 Deg F *LOW* (12/10/22 2:35 PM) 97.34 Deg F (12/10/22 2:30 PM) Peripheral Pulse Rate [60-100 bpm] 70 bpm (12/10/22 4:55 PM) 62 bpm (12/10/22 3:40 PM) 76 bpm (12/10/22 2:44 PM) Respiratory Rate [12-24 br/min] 17 br/min (12/10/22 4:55 PM) 18 br/min (12/10/22 3:40 PM) 18 br/min (12/10/22 2:39 PM) Blood Pressure [90-140/60-90 mmHg] 111/70mmHg (12/10/22 4:55 PM) 108/69mmHg (12/10/22 3:40 PM) 111/64mmHg (12/10/22 2:44 PM) Mean Arterial Pressure, Cuff [65-140 mmHg] 80 mmHg (12/10/22 2:44 PM) 81 mmHg (12/10/22 2:39 PM) 75 mmHg (12/10/22 2:35 PM) Mean Arterial Pressure Cuff 83 mmHg (12/10/22 4:55 PM) 82 mmHg (12/10/22 3:40 PM) 77 mmHg (12/10/22 2:44 PM) Blood Pressure Location Left arm (12/10/22 2:44 PM) Left arm (12/10/22 2:39 PM) Left arm (12/10/22 2:30 PM) Blood Pressure Method Automatic (12/10/22 2:44 PM) Automatic (12/10/22 2:39 PM) Automatic (12/10/22 2:30 PM) Social History Social History Type Response Smoking Status Smoking tobacco use: Never tobacco user;Never entered on: 04/08/22 Sex Female Patient Care team information Care Team Personnel Name: Jerzy Vidal MD Position: Physician Member Role: Informed Provider Address: Address: [address] Care Team Related Persons Name: FRANCOIS PIERRE Address: Home Name: CESAR KNOX Address: Home
--- OUTSIDE RECORDS SUMMARY | 2024-02-24 01:12 | XMS_ITS | Continuity of Care Document ---
Author Organization [facility] Address [address] [place] [address] Care Team Providers Care Audio Narrator Name Role Phone Jerzy Vidal Primary Care Physician Encounter [place] Date(s): 04/12/22 - 04/12/[address] [phone] [place] Encounter Diagnosis Pleural effusion(Discharge Diagnosis) - 04/12/22 Discharge Disposition: Home or Self Care Attending Physician: Juan Alberto Connolly MD Admitting Physician: Juan Alberto Connolly MD Referring Physician: Juan Alberto Connolly MD Allergies, Adverse Reactions, Alerts Substance Reaction Severity Status penicillins Unknown Active CARBOplatin Unknown Active Assessment and Plan Diagnostic Tests Pending * Surgical Pathology [facility] 04/12/22 * Non INORGANIC CHEMIST/FNA Cytology [facility] 04/12/22 Functional Status 04/12/22 ADLs Independent Family Member Travel History No recent t [...] Appendectomy and Drainage of Intraabdominal Abscess 3X2 08145 5POWER PORT Vital Signs Most recent to oldest [Reference Range]: 1 2 3 Temperature Oral [35.8-37.3 Deg C] 36.8 Deg C (04/12/22 1:01 PM) Peripheral Pulse Rate [60-100 bpm] 70 bpm (04/12/22 1:45 PM) 64 bpm (04/12/22 1:30 PM) 59 bpm *LOW* (04/12/22 1:21 PM) Heart Rate Monitored [60-100 bpm] 69 bpm (04/12/22 1:45 PM) 60 bpm (04/12/22 1:30 PM) 63 bpm (04/12/22 1:21 PM) Respiratory Rate [12-24 br/min] 23 br/min (04/12/22 1:45 PM) 21 br/min (04/12/22 1:30 PM) 17 br/min (04/12/22 1:21 PM) Blood Pressure [90-140/60-90 mmHg] 120/58mmHg (04/12/22 1:45 PM) 118/63mmHg (04/12/22 1:30 PM) 115/68mmHg (04/12/22 1:21 PM) Mean Arterial Pressure, Cuff [65-140 mmHg] 79 mmHg (04/12/22 1:45 PM) 81 mmHg (04/12/22 1:30 PM) 84 mmHg (04/12/22 1:21 PM) Weight 108.000 kg (04/12/22 1:01 PM) Weight Dosing 108.000 kg (04/12/22 1:01 PM) Height 173.000 cm (04/12/22 1:01 PM) Height/Length Dosing 173.000 cm (04/12/22 1:01 PM) Body Mass Index 36.090 kg/m2 (04/12/22 1:01 PM) Social History Social History Type Response Smoking Status Smoking tobacco use: Never tobacco user;Never entered on: 04/08/22 Sex Female Patient Care team information Personnel Name: Jerzy Vidal MD Address: Address: [address] [address]- [place]
--- OUTSIDE RECORDS SUMMARY | 2024-02-24 01:12 | XMS_ITS | Continuity of Care Document ---
Author Organization [facility] Address [address] [place] [address] Care Team Providers Care Ground Wood Supervisor Name Role Phone Young Jerzy Severino Primary Care Physician Encounter [place] Date(s): 12/01/22 - 12/01/[address] [address] Discharge Disposition: Home or Self Care Attending [...] Daily, # 90 cap, 0 Refill(s), Pharmacy: [facility] #58, 173, cm, 04/12/22 13:04:00 EDT, Height/Length Dosing, 108, kg, 04/12/22 13:04:00 EDT, Weight Dosing Start Date: 08/09/22 Status: Ordered Eliquis 5 mg oral tablet See Instructions, TAKE ONE TABLET BY MOUTH TWICE A DAY, # 180 tab, 0 Refill(s), Pharmacy: [facility] #58, 173, cm, 10/22/22 10:35:00 EDT, Height/Length Dosing, 117, kg, 10/22/22 10:35:00 EDT, Weight Dosing Start Date: 11/14/22 Status: Ordered Eliquis 5 mg oral tablet 1 tab, Oral, BID, # 180 tab, 0 Refill(s), Pharmacy: [facility] #58, 173, cm, 04/12/22 13:04:00 EDT, Height/Length [...] Appendectomy and Drainage of Intraabdominal Abscess 3X2 85168 5POWER PORT Results Laboratory List Name Date Automated Diff 12/01/22 ABO/Rh 12/01/22 Antibody Screen Gel 12/01/22 Comprehensive Metabolic Panel 12/01/22 Red Blood Cells 12/01/22 Reticulocyte Count Automated 12/01/22 .Morphology ([facility]) 12/01/22 CBC w/ Diff 12/01/22 Most recent to oldest [Reference Range]: 1 WBC [5.0-10.0 x10^3/mcL] 3.4 x10^3/mcL *LOW* (12/01/22 1:00 PM) RBC [4.1-5.3 x10^6/mcL] 1.9 x10^6/mcL *LOW* (12/01/22 1:00 PM) Neutro Auto [40.0-75.0 %] 78.6 % *HI* (12/01/22 1:00 PM) Lymph Auto [20.0-50.0 %] 10.8 % *LOW* (12/01/22 1:00 PM) [place] Auto [2.0-15.0 %] 9.4 % (12/01/22 1:00 PM) Basophil Auto [0.0-1.0 %] 0.6 % (12/01/22 1:00 PM) BUN [7-18 mg/dL] 19 mg/dL *HI* (12/01/22 2:05 PM) ABO/Rh Type A POS *Unknown* (12/01/22 2:05 PM) Glucose Level [74-106 mg/dL] 103 mg/dL (12/01/22 2:05 PM) Potassium Level [3.5-5.1 mmol/L] 3.7 mmo l/L (12/01/22 2:05 PM) MCV [80.0-96.0 fL] 104.1 fL *HI* (12/01/22 1:00 PM) RBC Morph Abnormal (12/01/22 1:00 PM) AST [15-37 unit/L] 18 unit/L (12/01/22 2:05 PM) ALT [14-59 unit/L] 12 unit/L *LOW* (12/01/22 2:05 PM) MCHC [31.0-35.0 g/dL] 30.7 g/dL *LOW* (12/01/22 1:00 PM) Sodium Level [136-145 mmol/L] 131 mmol/L *LOW* (12/01/22 2:05 PM) Hct [37.0-47.0 %] 20.2 % 1 *CRIT* (12/01/22 1:00 PM) Hypochromia Rare (12/01/22 1:00 PM) Calcium Level [8.5-10.1 mg/dL] 9.0 mg/dL (12/01/22 2:05 PM) Albumin Level [3.4-5.0 g/dL] 2.3 g/dL *LOW* (12/01/22 2:05 PM) Protein Total [6.4-8.2 g/dL] 8.5 g/dL *HI* (12/01/22 2:05 PM) MCH [26.0-32.0 pg] 32.0 pg (12/01/22 1:00 PM) Neutro Absolute 2.7 x10^3/mcL *NA* (12/01/22 1:00 PM) Bilirubin Total [0.2-1.0 mg/dL] 0.8 mg/d L (12/01/22 2:05 PM) Hgb [12.0-16.0 g/dL] 6.2 g/dL 2 *CRIT* (12/01/22 1:00 PM) Alk Phos [46-146 unit/L] 56 unit/L (12/01/22 2:05 PM) Platelets [130-450 x10^3/mcL] 131 x10^3/ mcL (12/01/22 1:00 PM) CO2 [21-32 mmol/L] 31 mmol/L (12/01/22 2:05 PM) Reticulocyte % [0.5-2.4 %] 2.6 % *HI* (12/01/22 2:05 PM) Macrocyte Small (12/01/22 1:00 PM) eGFR Non-AA [>=60] 55 *LOW* (12/01/22 2:05 PM) eGFR AA [>=60] 55 *LOW* (12/01/22 2:05 PM) Chloride Level [98-107 mmol/L] 95 mmol/L *LOW* (12/01/22 2:05 PM) RBC Product Ready Done (12/01/22 2:05 PM) RDW-CV [11.5-14.5 %] 21.7 % *HI* (12/01/22 1:00 PM) Imm Gran Auto [0.0-0.9 %] 0.6 % (12/01/22 1:00 PM) Slide Review Morph Only (12/01/22 1:00 PM) Anisocyte Moderate (12/01/22 1:00 PM) Creatinine Level [0.55-1.02 mg/dL] 1.11 mg/dL *HI* (12/01/22 2:05 PM) Antibody Screen Gel Negative ABSC (12/01/22 2:05 PM) Plt Estimation [Adequate] Adequate (12/01/22 1:00 PM) 1Result Comment: Called to and verbally verified by Laura Scott at 12/01/2022 14:29:37 EDT 2Result Comment: Called to and verbally verified by Laura Scott at 12/01/2022 14:29:37 EDT Social History Social History Type Response Smoking Status Smoking tobacco use: Never tobacco user;Never entered on: 04/08/22 Sex Female Patient Care team information Care Team Personnel Name: Jerzy Vidal MD Position: Physician Member Role: Informed Provider Address: Address: [address] [address] [place] Care Team Related Persons Name: FRANCOIS PIERRE Address: Home Name: CESAR KNOX Address: Home
--- OUTSIDE RECORDS SUMMARY | 2024-02-24 01:12 | XMS_ITS | Continuity of Care Document ---
Author Organization [facility] Address [address] [place] [address] Care Team Providers Care Billboard Installer Name Role Phone Jerzy Vidal Primary Care Physician Encounter [place] Date(s): 02/24/23 - 02/24/[address] [address] Discharge Disposition: Home or Self Care Attending Physician: Ciara Dennis APRN Admitting Physician: Ciara Dennis APRN Referring Physician: Ciara Dennis APRN Allergies, Adverse Reactions, Alerts Substance Reaction Severity [...] Daily, # 90 cap, 0 Refill(s), Pharmacy: [facility] #58 173, cm, 04/12/22 13:04:00 EDT, Height/Length Dosing, 108, kg, 04/12/22 13:04:00 EDT, Weight Dosing Start Date: 08/09/22 Status: Ordered Eliquis 5 mg oral tablet See Instructions, TAKE ONE TABLET BY MOUTH TWICE A DAY, # 180 tab, 0 Refill(s), Pharmacy: [facility] #58, 173, cm, 10/22/22 10:35:00 EDT, Height/Length Dosing, 117, kg, 10/22/22 10:35:00 EDT, Weight Dosing Start Date: 11/14/22 Status: Ordered furosemide 80 mg oral tablet 40 mg = 0.5 tab, Take 40mg daily per [facility] KIMBERLY Calles, 0 Refill(s) Start Date: 11/17/22 Status: Ordered levothyroxine 150 mcg (0.15 mg) oral tablet 150 mcg = 1 tab, Oral, Daily Start Date: 11/25/21 Status: Ordered lidocaine 5% patch 1 patches, Topical, Daily, Leave on for 12 hours and remove for 12 hours. KIMBERLY Calles -[facility] # 30 patches, 3 Refill(s) Start Date: [...] pain, # 60 tab, 0 Refill(s), Pharmacy: [facility] #58, 173, cm, 11/17/22 15:06:00 EDT, Height/Length [...] Completed Venous access device maintenance 6 Completed 1DC 2550 mL clear yellow fluid removed from left side 3Exploratory Laparotomy w/ Appendectomy and Drainage of Intraabdominal Abscess 4X2 35944 6POWER PORT Results Laboratory List Name Date Automated Diff 02/24/23 CBC w/ Diff 02/24/23 Comprehensive Metabolic Panel 02/24/23 Free T4 02/24/23 Thyroid Stimulating Hormone 02/24/23 Most recent to oldest [Reference Range]: 1 WBC [5.0-10.0 x10^3/mcL] 4.8 x10^3/mcL *LOW* (02/24/23 1:58 PM) RBC [4.1-5.3 x10^6/mcL] 3.1 x10^6/mcL *LOW* (02/24/23 1:58 PM) Neutro Auto [40.0-75.0 %] 67.1 % (02/24/23 1:58 PM) Lymph Auto [20.0-50.0 %] 13.0 % *LOW* (02/24/23 1:58 PM) [place] Auto [2.0-15.0 %] 13.0 % (02/24/23 1:58 PM) Basophil Auto [0.0-1.0 %] 0.6 % (02/24/23 1:58 PM) BUN [7-18 mg/dL] 25 mg/dL *HI* (02/24/23 1:58 PM) Glucose Level [74-106 mg/dL] 93 mg/dL (02/24/23 1:58 PM) Potassium Level [3.5-5.1 mmol/L] 4.2 mmo l/L (02/24/23 1:58 PM) MCV [80.0-96.0 fL] 102.2 fL *HI* (02/24/23 1:58 PM) T4 Free [0.76-1.46 ng/dL] 1.23 ng/dL (02/24/23 1:58 PM) AST [15-37 unit/L] 16 unit/L (02/24/23 1:58 PM) ALT [14-59 unit/L] 13 unit/L *LOW* (02/24/23 1:58 PM) MCHC [31.0-35.0 g/dL] 32.6 g/dL (02/24/23 1:58 PM) Sodium Level [136-145 mmol/L] 138 mmol/L (02/24/23 1:58 PM) Hct [37.0-47.0 %] 31.9 % *LOW* (02/24/23 1:58 PM) Calcium Level [8.5-10.1 mg/dL] 9.3 mg/dL (02/24/23 1:58 PM) Albumin Level [3.4-5.0 g/dL] 3.5 g/dL (02/24/23 1:58 PM) Protein Total [6.4-8.2 g/dL] 8.2 g/dL (02/24/23 1:58 PM) MCH [26.0-32.0 pg] 33.3 pg *HI* (02/24/23 1:58 PM) Neutro Absolute 3.2 x10^3/mcL *NA* (02/24/23 1:58 PM) Bilirubin Total [0.2-1.0 mg/dL] 0.8 mg/d L (02/24/23 1:58 PM) Hgb [12.0-16.0 g/dL] 10.4 g/dL *LOW* (02/24/23 1:58 PM) Alk Phos [46-146 unit/L] 61 unit/L (02/24/23 1:58 PM) Platelets [130-450 x10^3/mcL] 108 x10^3/ mcL *LOW* (02/24/23 1:58 PM) CO2 [21-32 mmol/L] 32 mmol/L (02/24/23 1:58 PM) TSH [0.358-3.740 mcIntlUnit/mL] 1.287 mc IntlUnit/mL (02/24/23 1:58 PM) eGFR Non-AA [>=60] 65 (02/24/23 1:58 PM) eGFR AA [>=60] 65 (02/24/23 1:58 PM) Chloride Level [98-107 mmol/L] 101 mmol/ L (02/24/23 1:58 PM) RDW-CV [11.5-14.5 %] 13.9 % (02/24/23 1:58 PM) Imm Gran Auto [0.0-0.9 %] 0.2 % (02/24/23 1:58 PM) Creatinine Level [0.55-1.02 mg/dL] 0.97 mg/dL (02/24/23 1:58 PM) Eos, Auto [1.0-6.0 %] 6.1 % *HI* (02/24/23 1:58 PM) Social History Social History Type Response Smoking Status Smoking tobacco use: Never tobacco user;Never entered on: 04/08/22 Sex Female Patient Care team information Care Team Personnel Name: Jerzy Vidal MD Position: Physician Member Role: Informed Provider Address: Address: [address] Care Team Related Persons Name: FRANCOIS PIERRE Name: CESAR KNOX
--- OUTSIDE RECORDS SUMMARY | 2024-02-24 01:12 | XMS_ITS | Continuity of Care Document ---
Author Organization [facility] Address [address] [place] [address] Care Team Providers Care Exchange Operator Name Role Phone Jerzy Vidal Primary Care Physician [phone] Encounter [id number] Date(s): 05/26/22 - 05/26/[address] [id number] Discharge Disposition: Home or Self Care Attending [...] Appendectomy and Drainage of Intraabdominal Abscess 3X2 [id number] PORT Social History Social History Type Response Smoking Status Smoking tobacco use: Never tobacco user;Never entered on: 04/08/22 Sex Female Patient Care team information Personnel Name: Jerzy Vidal MD Address: Address: [address]
--- OUTSIDE RECORDS SUMMARY | 2024-02-24 01:12 | XMS_ITS | Continuity of Care Document ---
Author Organization [facility] Address [address] [place] [address] Care Team Providers Care Dryer Feeder Name Role Phone YoungJerzy magana Severino Primary Care Physician Encounter [facility] Date(s): 08/17/23 - 08/17/[address] [address] Discharge Disposition: Home or Self Care Attending [...] Refill(s) Start Date: 11/17/22 Status: Ordered DilTIAZem (Eqv-Cardizem CD) 180 mg/24 hours oral capsule, extended release See Instructions, TAKE ONE CAPSULE BY MOUTH EVERY DAY, # 90 cap, 1 Refill(s), Pharmacy: [facility] 173, cm, 11/17/22 15:06:00 EDT, Height/Length Dosing, 117, kg, 11/17/22 15:06:00 EDT, Weight Dosing Start Date: 05/26/23 Status: Ordered Eliquis 5 mg oral tablet See Instructions, TAKE ONE TABLET BY MOUTH TWICE A DAY, # 180 tab, 2 Refill(s), Pharmacy: [facility], 173, cm, 11/17/22 15:06:00 EDT, Height/Length Dosing, 117, kg, 11/17/22 15:06:00 EDT, Weight Dosing Start Date: 05/24/23 Status: Ordered furosemide 80 mg oral tablet 40 mg = 0.5 tab, Take 40mg daily per [facility] KIMBERLY Calles, 0 Refill(s) Start Date: 11/17/22 Status: Ordered levothyroxine 150 mcg (0.15 mg) oral tablet 150 mcg = 1 tab, Oral, Daily Start Date: 11/25/21 Status: Ordered lidocaine 5% patch 1 patches, Topical, Daily, Leave on for 12 hours and remove for 12 hours. KIMBERLY Calles -[facility]., # 30 patches, 3 Refill(s) [...] pain, # 60 tab, 0 Refill(s), Pharmacy: [facility], 173, cm, 11/17/22 15:06:00 EDT, Height/Length [...] Appendectomy and Drainage of Intraabdominal Abscess 4X2 74031 6POWER PORT Social History Social History Type Response Smoking Status Smoking tobacco use: Never tobacco user;Never entered on: 04/08/22 Sex Female Patient Care team information Care Team Personnel Name: Jerzy Vidal MD Position: Physician Member Role: Informed Provider Address: Address: [id number] [place] [address] Care Team Related Persons Name: FRANCOIS PIERRE Name: CESAR KNOX
--- OUTSIDE RECORDS SUMMARY | 2024-02-24 01:12 | XMS_ITS | Continuity of Care Document ---
Author Organization [facility] Address [address] [place] [address] Care Team Providers Care Central Office Operator Name Role Phone YoungJerzy magana Severino Primary Care Physician [phone] Encounter [facility] Date(s): 11/09/23 - 11/09/[address] [address] Discharge Disposition: Home or Self Care Attending [...] DAY, # 90 cap, 1 Refill(s), Pharmacy: [facility] 173, cm, 11/17/22 15:06:00 EDT, Height/Length Dosing, 117, kg, 11/17/22 15:06:00 EDT, Weight Dosing Start Date: 05/26/23 Status: Ordered Eliquis 5 mg oral tablet See Instructions, TAKE ONE TABLET BY MOUTH TWICE A DAY, # 180 tab, 2 Refill(s), Pharmacy: [facility], 173, cm, 11/17/22 15:06:00 EDT, Height/Length Dosing, 117, kg, 11/17/22 15:06:00 EDT, Weight Dosing Start Date: 05/24/23 Status: Ordered furosemide 80 mg oral tablet 40 mg = 0.5 tab, Take 40mg daily per [facility] KIMBERLY Calles, 0 Refill(s) Start Date: 11/17/22 Status: Ordered levothyroxine 150 mcg (0.15 mg) oral tablet 150 mcg = 1 tab, Oral, Daily Start Date: 11/25/21 Status: Ordered lidocaine 5% patch 1 patches, Topical, Daily, Leave on for 12 hours and remove for 12 hours. KIMBERLY Calles -[facility]., # 30 patches, 3 Refill(s) Start Date: [...] pain, # 60 tab, 0 Refill(s), Pharmacy: [facility], 173, cm, 11/17/22 15:06:00 EDT, Height/Length [...] Appendectomy and Drainage of Intraabdominal Abscess 4X2 66619 6POWER PORT Social History Social History Type Response Smoking Status Smoking tobacco use: Never tobacco user;Never entered on: 04/08/22 Sex Female Patient Care team information Care Team Personnel Name: Jerzy Vidal MD Position: Physician Member Role: Informed Provider Address: Address: [id number] [place] [address] Care Team Related Persons Name: FRANCOIS PIERRE Name: CESAR KNOX
--- OUTSIDE RECORDS SUMMARY | 2024-02-24 01:12 | XMS_ITS | Continuity of Care Document ---
Author Organization [facility] Address [address] [place] [address] Care Team Providers Care Agriculture Technician Name Role Phone YoungJerzy magana Severino Primary Care Physician Encounter [facility] Date(s): 12/23/22 - 12/23/[address] [address] Discharge Disposition: Home or Self Care Attending [...] Daily, # 90 cap, 0 Refill(s), Pharmacy: [facility], 173, cm, 04/12/22 13:04:00 EDT, Height/Length Dosing, 108, kg, 04/12/22 13:04:00 EDT, Weight Dosing Start Date: 08/09/22 Status: Ordered Eliquis 5 mg oral tablet See Instructions, TAKE ONE TABLET BY MOUTH TWICE A DAY, # 180 tab, 0 Refill(s), Pharmacy: [facility], 173, cm, 10/22/22 10:35:00 EDT, Height/Length [...] pain, # 60 tab, 0 Refill(s), Pharmacy: [facility], 173, cm, 11/17/22 15:06:00 EDT, Height/Length [...] Appendectomy and Drainage of Intraabdominal Abscess 3X2 45406 5POWER PORT Results Laboratory List Name Date .Manual Differential ([facility]CTY) 12/23/22 ABO/Rh 12/23/22 Antibody Screen Gel 12/23/22 CBC w/ Diff 12/23/22 Comprehensive Metabolic Panel 12/23/22 Reticulocyte Count Automated 12/23/22 Most recent to oldest [Reference Range]: 1 WBC [5.0-10.0 x10^3/mcL] 4.2 x10^3/mcL *LOW* (12/23/22 1:08 PM) RBC [4.1-5.3 x10^6/mcL] 2.6 x10^6/mcL *LOW* (12/23/22 1:08 PM) Segs Man [40-75 %] 72 % (12/23/22 1:08 PM) Lymph Man [20-50 %] 21 % (12/23/22 1:08 PM) [place] Man [2-15 %] 3 % (12/23/22 1:08 PM) Eos Man [1-6 %] 1 % (12/23/22 1:08 PM) BUN [7-18 mg/dL] 18 mg/dL (12/23/22 1:08 PM) ABO/Rh Type A POS *Unknown* (12/23/22 1:08 PM) Glucose Level [74-106 mg/dL] 86 mg/dL (12/23/22 1:08 PM) Potassium Level [3.5-5.1 mmol/L] 4.3 mmo l/L (12/23/22 1:08 PM) MCV [80.0-96.0 fL] 108.0 fL *HI* (12/23/22 1:08 PM) RBC Morph Abnormal (12/23/22 1:08 PM) AST [15-37 unit/L] 19 unit/L (12/23/22 1:08 PM) ALT [14-59 unit/L] 9 unit/L 1 *LOW* (12/23/22 1:08 PM) MCHC [31.0-35.0 g/dL] 29.9 g/dL *LOW* (12/23/22 1:08 PM) Sodium Level [136-145 mmol/L] 134 mmol/L *LOW* (12/23/22 1:08 PM) Hct [37.0-47.0 %] 28.4 % *LOW* (12/23/22 1:08 PM) Calcium Level [8.5-10.1 mg/dL] 9.0 mg/dL (12/23/22 1:08 PM) Albumin Level [3.4-5.0 g/dL] 2.6 g/dL *LOW* (12/23/22 1:08 PM) Protein Total [6.4-8.2 g/dL] 8.1 g/dL (12/23/22 1:08 PM) MCH [26.0-32.0 pg] 32.3 pg *HI* (12/23/22 1:08 PM) Bilirubin Total [0.2-1.0 mg/dL] 0.7 mg/d L (12/23/22 1:08 PM) Hgb [12.0-16.0 g/dL] 8.5 g/dL *LOW* (12/23/22 1:08 PM) Alk Phos [46-146 unit/L] 65 unit/L (12/23/22 1:08 PM) Band Man [0-5 %] 0 % (12/23/22 1:08 PM) Platelets [130-450 x10^3/mcL] 207 x10^3/ mcL (12/23/22 1:08 PM) CO2 [21-32 mmol/L] 31 mmol/L (12/23/22 1:08 PM) Reticulocyte % [0.5-2.4 %] 4.3 % *HI* (12/23/22 1:08 PM) Macrocyte Small (12/23/22 1:08 PM) eGFR Non-AA [>=60] 67 (12/23/22 1:08 PM) eGFR AA [>=60] 67 (12/23/22 1:08 PM) Chloride Level [98-107 mmol/L] 100 mmol/ L (12/23/22 1:08 PM) RDW-CV [11.5-14.5 %] 20.9 % *HI* (12/23/22 1:08 PM) Slide Review Man Diff (12/23/22 1:08 PM) Abs Neut Man 3.0 x10^3/mcL *NA* (12/23/22 1:08 PM) Anisocyte Moderate (12/23/22 1:08 PM) Creatinine Level [0.55-1.02 mg/dL] 0.94 mg/dL (12/23/22 1:08 PM) Antibody Screen Gel Negative ABSC (12/23/22 1:08 PM) Baso Man [0-1 %] 3 % *HI* (12/23/22 1:08 PM) 1Result Comment: Repeated to confirm Social History Social History Type Response Smoking Status Smoking tobacco use: Never tobacco user;Never entered on: 04/08/22 Sex Female Patient Care team information Care Team Personnel Name: Jerzy Vidal MD Position: Physician Member Role: Informed Provider Address: Address: [id number] [place] [address] Care Team Related Persons Name: IGNACIOFRANCOIS LOVETT Address: Home Name: CESAR KNOX Address: Home
--- OUTSIDE RECORDS SUMMARY | 2024-02-24 01:12 | XMS_ITS | Continuity of Care Document ---
Author Organization [facility] Address [address] [place] [address] Care Team Providers Care Vice President Biostatistics Name Role Phone Young Jerzy Severino Primary Care Physician Encounter [facility] Date(s): 01/13/23 - 01/13/[address] [address] Discharge Disposition: Home or Self Care Attending [...] Daily, # 90 cap, 0 Refill(s), Pharmacy: [facility]58 173, cm, 04/12/22 13:04:00 EDT, Height/Length Dosing, 108, kg, 04/12/22 13:04:00 EDT, Weight Dosing Start Date: 08/09/22 Status: Ordered Eliquis 5 mg oral tablet See Instructions, TAKE ONE TABLET BY MOUTH TWICE A DAY, # 180 tab, 0 Refill(s), Pharmacy: [facility], 173, cm, 10/22/22 10:35:00 EDT, Height/Length [...] pain, # 60 tab, 0 Refill(s), Pharmacy: [facility], 173, cm, 11/17/22 15:06:00 EDT, Height/Length [...] Appendectomy and Drainage of Intraabdominal Abscess 3X2 76897 5POWER PORT Results Laboratory List Name Date .Manual Differential ([facility]CTY) 01/13/23 CBC w/ Diff 01/13/23 Comprehensive Metabolic Panel 01/13/23 Reticulocyte Count Automated 01/13/23 Most recent to oldest [Reference Range]: 1 WBC [5.0-10.0 x10^3/mcL] 5.3 x10^3/mcL (01/13/23 10:20 AM) RBC [4.1-5.3 x10^6/mcL] 2.7 x10^6/mcL *LOW* (01/13/23 10:20 AM) Segs Man [40-75 %] 70 % (01/13/23 10:20 AM) Lymph Man [20-50 %] 21 % (01/13/23 10:20 AM) [place] Man [2-15 %] 1 % *LOW* (01/13/23 10:20 AM) Eos Man [1-6 %] 8 % *HI* (01/13/23 10:20 AM) BUN [7-18 mg/dL] 22 mg/dL *HI* (01/13/23 10:20 AM) Glucose Level [74-106 mg/dL] 90 mg/dL (01/13/23 10:20 AM) Potassium Level [3.5-5.1 mmol/L] 3.3 mmo l/L *LOW* (01/13/23 10:20 AM) MCV [80.0-96.0 fL] 109.3 fL *HI* (01/13/23 10:20 AM) RBC Morph Abnormal (01/13/23 10:20 AM) AST [15-37 unit/L] 13 unit/L *LOW* (01/13/23 10:20 AM) ALT [14-59 unit/L] 11 unit/L *LOW* (01/13/23 10:20 AM) MCHC [31.0-35.0 g/dL] 30.6 g/dL *LOW* (01/13/23 10:20 AM) Sodium Level [136-145 mmol/L] 135 mmol/L *LOW* (01/13/23 10:20 AM) Hct [37.0-47.0 %] 29.4 % *LOW* (01/13/23 10: AM) Calcium Level [8.5-10.1 mg/dL] 8.7 mg/dL (01/13/23 10:20 AM) Albumin Level [3.4-5.0 g/dL] 2.9 g/dL *LOW* (01/13/23 10: AM) Protein Total [6.4-8.2 g/dL] 7.8 g/dL (01/13/23 10:20 AM) MCH [26.0-32.0 pg] 33.5 pg *HI* (01/13/23 10:20 AM) Bilirubin Total [0.2-1.0 mg/dL] 0.5 mg/d L (01/13/23 10:20 AM) Hgb [12.0-16.0 g/dL] 9.0 g/dL *LOW* (01/13/23 10:20 AM) Alk Phos [46-146 unit/L] 79 unit/L (01/13/23 10:20 AM) Band Man [0-5 %] 0 % (01/13/23 10:20 AM) Polychrom Rare (01/13/23 10:20 AM) Platelets [130-450 x10^3/mcL] 171 x10^3/ mcL (01/13/23 10:20 AM) CO2 [21-32 mmol/L] 31 mmol/L (01/13/23 10:20 AM) Reticulocyte % [0.5-2.4 %] 3.3 % *HI* (01/13/23 10:20 AM) Macrocyte Small (01/13/23 10:20 AM) eGFR Non-AA [>=60] 53 *LOW* (01/13/23 10:20 AM) eGFR AA [>=60] 53 *LOW* (01/13/23 10:20 AM) Chloride Level [98-107 mmol/L] 99 mmol/L (01/13/23 10:20 AM) RDW-CV [11.5-14.5 %] 17.7 % *HI* (01/13/23 10:20 AM) Slide Review Man Diff (01/13/23 10:20 AM) Abs Neut Man 3.7 x10^3/mcL *NA* (01/13/23 10:20 AM) Anisocyte Rare (01/13/23 10:20 AM) Creatinine Level [0.55-1.02 mg/dL] 1.15 mg/dL *HI* (01/13/23 10:20 AM) Baso Man [0-1 %] 0 % (01/13/23 10:20 AM) Social History Social History Type Response Smoking Status Smoking tobacco use: Never tobacco user;Never entered on: 04/08/22 Sex Female Patient Care team information Care Team Personnel Name: Jerzy Vidal MD Position: Physician Member Role: Informed Provider Address: Address: [place] [address]- Care Team Related Persons Name: FRANCOIS PIERRE Name: CESAR KNOX
--- OUTSIDE RECORDS SUMMARY | 2024-02-24 01:13 | XMS_ITS | Encounter Summary ---
Author [facility] [place] [address] Care Team Providers Care Embedded Software Architect Name Role Phone Jerzy Vidal MD Primary Care Provider [phone] Encounter Details Date Type Department Care Team (Late Contact Info) Description 2023 3:10 PM EST Ancillary Procedure [place] [address] Jerzy Vidal MD [address] [place] [phone] Social History Tobacco Use Types Packs/Day Years Used Date Smoking Tobacco: Never Smokeless Tobacco: Never Alcohol Use Standard Drinks/Week Comments Never 0 (1 standard drink = 0.6 oz pur e alcohol) IPV Inpatient Questions Answer Date Recorded Does Anyone Try to Keep You From Having Contact with Others or Doing Things Outside Your Home? no 01/19/2023 Feels Threatened by Someone no 02/2023 Feels Unsafe at Home or Work/School no 01/19/2023 Physical Signs of Abuse Present no 01/19/2023 Sex and Gender Information Value Date Recorded Sex Assigned at Not on file Gender Identity Not on file Sexual Orientation Not on file documented as of this encounter Plan of Treatment Upcoming Encounters Date Type Department Care Team (Late Contact Info) Description 02/24/2024 9:00 AM EDT Office Visit Hematology/Oncology at [address] [phone] Shon Schneider MD [facility] [place] [address] [address] HEMATOLOGY AND ONCOLOGY [place], [place] [phone] 02/24/2024 9:30 AM EDT Infusion Hematology Oncology at [address] [phone] 28 03/02/2024 11:00 AM EDT Office Visit Hematology/Oncology at [address] [phone] Shon Schneider MD [facility] [place] [address] [address] HEMATOLOGY AND ONCOLOGY [place], [place] [phone] 03/02/2024 12:30 PM EDT Infusion Hematology Oncology at [address] [phone] 03/09/2024 10:00 AM EDT Office Visit Hematology/Oncology at [address] [phone] Shon Schneider MD [facility] [place] [address] [address] HEMATOLOGY AND ONCOLOGY [place], [place] [address] 03/09/2024 10:30 AM EDT Infusion Hematology Oncology at [address] [phone] documented as of this encounter Goals Goal Patient Goal Type Associated Problems Recent Progress Patient-Stated? Author DH Home Medication Compliance and Understanding Patient Facing Action Plan On track( 019 3:22 PM EST) No Ivana Vanegas, [facility] Note: Remain 95% or better adherent to chemotherapy without severe side effects as assessed by days supply and patient reported adverse events at each refill documented as of this encounter Procedures Procedure Name Priority Date/Time Associated Diagnosis Comments FILM LIBRARY STORAGE ONLY CT CHEST Routine 2023 3:06 PM EST documented in this encounter Results * Film Library- Storage Only CT Chest (2023 3:06 PM EST) Narrative [facility] - 2023 3:06 PM EST This exam is auto-finalizing. It's purpose is for storage only. Jerzy Vidal MD G FILM LIBRARY ORD ERABLES Performing Organization Address City/State/[facility] Co de Phone Number [place], [place] documented in this encounter Visit Diagnoses Not on filedocumented in this encounter Care Teams Embedded Software Architect Relationship Specialty Start Date End Date Jerzy Vidal MD [address] [place] [address] [place] [address] PCP - [facility] 12/04/18 documented as of this encounter
--- OUTSIDE RECORDS SUMMARY | 2024-02-24 01:13 | XMS_ITS | Encounter Summary ---
Author Organization [facility] Address [facility] [place] [address] Care Team Providers Care Technology Specialist Name Role Phone Jerzy Vidal MD Primary Care Provider [phone] Reason for Referral * Diagnostic Test (Routine) - New Request Specialty Diagnoses / Procedures Referred By Franklyn del rio Referred To Contact Radiology Diagnoses Thymic carcinoma Procedures CT Chest w Contrast Shon Schneider MD [facility] [place] [address] [place] [address] Referral ID Status Reason Start Date Expiration Date Visits Requested Visits Authorized [id number] New Request Specialty Service Requested 12/23/2023 06/24/2025 1 1 Encounter Details Date Type Department Care Team (Latest Contact Info) Description 12/23/2023 1:30 PM EDT TH Visit (TeleHealth) Hematology/Oncology at [address] [phone] Shon Schneider MD [facility] [place] [address] Thymic carcinoma; Hypothyroidism, unspecified type Social History Tobacco Use Types Packs/Day Years Used Date Smoking Tobacco: Never Smokeless Tobacco: Never Alcohol Use Standard Drinks/Week Comments Never 0 (1 standard drink = 0.6 oz pur e alcohol) FORMERLY [facility] Inpatient Questions Answer Date Recorded Does Anyone [...] on file documented as of this encounter Progress Notes * Shon Schneider MD - 12/23/2023 1:30 PM EDT Subjective: Patient ID: Monica Jaramillo is 68 y.o. Problem List: 1. Thymic carcinoma, stage IV A. Presented to the ED with increasing SOB, h/o atrial fibrillation on apixaban. CT was done with PE protocol and she was found to have an anterior mediastinal mass measuring 8.8 x 8.8 x 4.8 cm and a moderately large sized left pleural effusion with compression atelectasis. transferred to [facility] for further evaluation and workup and had some initialproblems with hypoxemia that landed her in the ICU. She had 1.6 liters of left-sided pleural fluid tapped and cytology was negative on that. She slowly improved and the mediastinal mass was biopsied in mid-March and it showed a poorly differentiated carcinoma. Additionally, she was noted to have a left breast mass. That was biopsied and found to be benign. B. Biopsy of mediastinal mass 03/29 Path ([facility] [place]) - Mediastinum, mass, biopsy: 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 [facility] - CONSULT SLIDES FROM [facility]; [place], [place]: A. MEDIASTINUM, MASS, BIOPSY ([id number]; 03/22/2017): MALIGNANT THYMIC EPITHELIAL NEOPLASM consistent with THYMIC CARCINOMA, NON-KERATINIZING SQUAMOUS CELL TYPE; see NOTE. Immunohistochemistry performed at the outside institution and reviewed at [facility] demonstrates the following staining profile in lesional cells: Positive - AE1/AE3, p40, PAX8, CD117, CD5(multifocal), CK7(scattered cells), synaptophysin, chromogranin Negative - CK20, TTF-1, GATA3, CD34 The immunohistochemical profile supports the above diagnosis. Ki67 (MIB-1) proliferation index performed at the referring institution and reviewed at [facility] is focally up to ~30%. 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 The extent of PAX8 and CD117 staining would be unusual for Nut carcinoma. B. MEDIASTINUM, ANTERIOR, 4.5 CM, ULTRASOUND GUIDED FINED NEEDLE ASPIRATION ([id number]; 03/22/17): The cytologic preparations were not reviewed due to a lack of medical necessity. PD-L1 - positive at 75%. C. PET scan 04/18/17 - Impression: 1. Increased metabolic activity within the anterior mediastinal mass as well as pericardial and pleural nodules, consistent with known malignant disease with metastatic spread. The low level activityof the small to moderate left pleural effusion also likely reflects a component of malignancy. 2. Heterogeneous metabolic activity within the liver which demonstrates an enlarged and heterogeneous appearance may indicate an underlying disease. No discrete mass foci/mass/metastatic disease identified. 3. No increased metabolic activity within the concerning thoracolumbar spine lesions. 4. Additional incidental findings as described above. D. Second opinion with Dr. Roddy Vega in [place]. They reviewed the pathology and concurred they felt this was a thymic carcinoma, although were less certain about the neuroendocrine differentiation. They felt it had a non-keratinizing squamous histology. She was evaluated by both surgery and radiation therapy and in view of the areas of tumor seen on PET scan, she was not felt to be a surgicalcandidate or a candidate for radiation therapy and systemic treatment was recommended. E. 05/30/17 - Began chemotherapy with carboplatin plus paclitaxel, s/p [address] chest 08/17/17 - Impression: 1. Overall, mild changes compared to the PET/CT from 04/18/2017. The partly calcified large multilobulated anterior mediastinal mass is not significantly changed, nor the left pleural thickening and pleural masses. However, the left pleural effusion is smaller, and the left cardiophrenic lymph node has decreased in size. No new or enlarging lesions in the chest. 2. Stable left breast mass. 3. Additional findings as above. CT chest 12/28/17 - IMPRESSION: 1. Slight decrease in size of known anterior mediastinal mass, stable superior mediastinal adenopathy and improvement of pleural disease within the left hemithorax. 2. Coronary atherosclerosis. 3. Left atrial enlargement. CT chest 05/11/18 - Impression: 1. Overall minimal change of the anterior mediastinal mass compared to the prior examination, currently measuring 8.9 x 3.4 cm, previously 0.9 x 3.1 cm. The mass likely invades the parietal pericardium, with separate small implants or lymph nodes nodes along the lower portion of the anterior pericardium, and a separate enlarged left cardiophrenic lymph node. Left pleural thickening and pleural nod ules are not significantly changed compared to the prior examination. 2. Stable left breast mass. This was previously biopsied with out demonstration of malignancy. 3. Stable small nodules in the left major fissure and along the left inferior pulmonary ligament. CT abd/pelvis 05/11/18 - Impression: 1. Unchanged lytic and sclerotic lesions in the spine. No new metastatic disease or lymphadenopathyin the abdomen or pelvis. 2. Fibroid uterus. 3. Fat and bowel containing ventral and umbilical hernias, without evidence of obstruction or strangulation. G. 06/24/18 - Started sunitinib, 50 mg per day, 4 weeks on; 2 weeks off Complicated by myelosuppression (grade 3 thrombocytopenia, grade 2 anemia and neutropenia). Stoppedcycle 1 three days early. Cycle 2 delayed. Began cycle 2 on 08/18/18 - 37.5 mg two weeks, then [address] c/a/p 09/26/18 - Chest - Impression: 1. Stable appearance of anterior mediastinal mass with minimal juxta pericardial tacos and left-sided pleural disease all which appear stable from April,. 2. Atherosclerotic disease of the coronary arteries and aorta. 3. Stable left breast mass unchanged. Abd/pelvis - Impression: 1. Unchanged lytic and sclerotic lesions in the spine. No evidence of new metastatic disease or adenopathy within the abdomen or pelvis. 2. Fibroid uterus. Possible fluid within the endometrial canal. Correlate clinically for evidence of vaginal bleeding. 3. Multiple unchanged fat and bowel containing ventral and umbilical hernias without evidence of obstruction or strangulation. 4. Otherwise as above. CT c/a/p 12/19/18 - IMPRESSION 1. Stable size and morphology anterior mediastinal mass measuring 3 x 9 cm, consistent with known thymic carcinoma. 2. Stable borderline mediastinal and pericardial adenopathy. 3. Stable lytic lesion L2 vertebral body. 4. Stable left breast mass. Please correlate with mammographic imaging/breast ultrasound for lesioncharacterization and management. 5. Previously identified liver abnormalities are not appreciated on today's exam. 6. Stable bowel and fat-containing abdominal wall hernias without evidence of complications. I. Therapy held beginning 11/29/18 due to prolonged myelosuppression. 01/05/19 - Resumed therapy at 25 mg per day, 14 days on, [address] c/a/p 04/04/19 - IMPRESSION 1. Stable anterior mediastinal mass, compatible with history of known thymic carcinoma. 2. Increased size of LEFT pericardial lymph node. 3. Stable LEFT breast mass. 4. Stable multiple 5 mm or less LEFT pleural-based nodules. CT c/a/p 07/31/2019 - IMPRESSION: Unexpected finding: Dual new left lower lobe pulmonary nodules measuring 7 and 11 mm. Stable mediastinal mass, stable pericardial and epicardial soft tissue nodularity, stable left breast mass, stable left pericardial lymph node. K. 08/17/19 - began therapy with pembrolizumab L. CT c/a/p 11/06/19 ([facility] second read) - IMPRESSION 1. Worsening left-sided pleural and fissural metastases. Worsening pericardial metastases. 2. No interval change in size of partially calcified thymic mass. 3. Unchanged nonspecific left breast mass. 4. No evidence of metastatic disease below the diaphragm. CT c/a/p 02/06/20 (c/w 11/06/19) - Impression: 1. The dominant mass in the anterior mediastinum is essentially stable in size. 2. Slight interval increase in size of the smaller mediastianl masses or lymph nodes and of the left pleural metastases. 3. Left lower lobe pneumonia 4. Small left pleural effusion, increased in size 5. Stable left breast lesion 6.Stable subcentimeter non calcified pulmonary nodules. M. She began therapy with gemcitabine plus capecitabine on 02/29/20. N. CT chest 03/06/20 - Impression: 1. There is a lobulated 7.4 x 6.7 x 4.1 cm anterior mediastinal mass with multiplepunctate calcifications within it. The size has not changed significantly since the last study of 02/06/2020. 2. There are multiple metastatic foci around the pericardium and along the left pleural surfaces which have also not changed significantly since the last examination. 3. A slight increase in the size of a left breast nodule. Follow-up ultrasound suggested. 0. CT c/a/p 07/24/20 (c/w 04/30/20) - Impression: Configuration of mediastinal mass has changed mildly since prior study making direct comparison of size difficult. Current measurement of 8.2 x 3.7 cm compared with previous measurement of 8.6 x 4 cm. Diffuse pleural thickening and nodularity again noted in left hemithorax with volume loss. Increased moderate left pleural effusion. Stable appearance of segmental left lower lobe atelectasis. Thereare now multiple small nodules noted in the right lung. Stable mediastinal lymph nodes. Partially image ventral hernia sac noted. P. Guardant 360 08/2011 - [place]. TMB - 12.7. VUS in EGFR (R958H, 0/1%) and HNF1 (S337G, 0.3%) Q. Started therapy with lenvatinib on 08/18/20, 24 mg PO daily R. CT c/a/p 10/28/20 Chest - Impression: Considerable improvement since prior study. Stable appearance of thymic mass. (Considerable regression of previous bilateral pleural metastases. Prominent decrease in left pleural effusion and compressive atelectasis in left lower lobe. There is some residual segmental atelectasis of the left lowerlobe. Previous right pleural effusion has completely resolved. Previous small mediastinal lymph nodes have decreased in size). Abd/pelvis - Impression: No evidence of metastatic disease identified in the abdomen. Gallbladder is now moderately distended without CT evidence of acute inflammatory change. Correlate clinically. Multiple abdominal wall hernias with contained fat and contained loops of bowel without evidence of obstruction and stable. Diffusely fibroid uterus. CT chest 02/10/21 - Impression: 1. Stable thymic mass 2. Stable left epicardial lymph node 3. Improved left lower lobe atelectasis/consolidation 4. Improved left pleural effusion 5. Chronically elevated left hemidiaphragm 6. Markedly distended gallbladder, similar to previous S. Lenvatinib held 04/17/21 due to polycythemia Restarted 05/01/21 at 14 mg per day. T. CT chest 07/14/21 - Impression 1. Stable partially calcified soft tissue mass in the mediastinum consistent with patient's historyof thymic carcinoma 2. Pericardial lymph node again noted, slightly smaller compared to prior exam 3. Stable dalcified pleural plaque along the anterior left upper lobe unchanged from prior exam 4. Right sided central venous chest port noted with the distal tip in the upper SVC. No significantopacification of the SVC possibly due to bolus timing. No significant opacified venous collaterals identified, suggestive of thrombus. Recommend clinical correlation. CT chest 11/05/21 - Impression: 1. Stable lobulated partially calcified anterior mediastinal mass consistent with patient's known thymic carcinoma. 2. Sight interval increase in the size of small upper mediastinal lymph nodes 3. New moderate bilateral pleural effusions, tiny pericardial effusion and diffuse subcutaneous edema 4. Stable ascending thoracic aortic aneurysm 5. Left calcified pleural plaques. CT chest 12/13/21 - Impression: 1. Stable partially calcified anterior mediastinal mass consistent with patient's known thymic carcinoma 2. Marked interval improvement of bilateral pleural effusions 3. Stable mediastinal lymph nodes 4. Stable ascending aortic aneurysm 5. Interval resolution of small ascites seen on prior exam. 6. Stable to mildly improved subcutaneous soft tissue edema U. 01/12/22 - Began therapy with everolimus V. CT c/a/p 04/05/22 Chest - Impression: 1. There is a partially calcified anterior mediastinal mass measuring 6.8 x 3.1 cm (weris 602, image 70), stable accounting for differences in measurement technique. 2. There is a stable rounded structure in the subareolar left breast measuring 2.0 cm 3. Large volume pleural effusion on the right and moderate volume pleural effusion on the left 4. Stable pleural plaques 5. Soft tissue density nodules within the left lung, stable. Follow up as clinically indicated given patient's history of malignancy Abd/pelvis - Impression: 1. Small volume right upper quadrant ascites 2. There is mild gallbladder wall thickening, likely related to adjacent ascites 3. The uterus is enlarged and lobular in contour with multiple calcifications, likely related to involuted fibroids 4. There are 2 ventral hernias noted, containing loops of bowel. No visualized bowel obstruction 5. There appears to be a new compression fracture involving the superior endplate of L2 with less than 25% loss of height CT chest 05/26/22 - Impression: There is a relatively stable CT chest appearance overall as compared to the previous study with a history of mediastinal thymic neoplasm, pleural effusions and pulmonary nodules which appear relatively similar overall. There is some slightly improved central upper lung zone aeration. W. 06/23/22 - Began therapy with pemetrexed X. CT chest 10/06/22 (comparsion CT chest 05/26/22) - Impression: There is an overall stable CT chest apperance as compared to the previous study with a history of thymic carcinoma. This includes similar pleural effusions moderate right and small left. CT c/a/p 01/06/23 (c/w CT chest from 10/22/22) Chest - Impression: 1. New ovoid subcutaneous nodule in the anterior right subcutaneous fat. Ultrasound may be of assistance 2. No change in in the mediastinal mass or adenopathy 3. Moderate right and small left pleural effusions. Compressive atelectasis in the right lower lobe 4. Pleural densities in the left lung along the fissures predominantly show no significant change from prior examinations Abd/pelvis - Impression: 1. Cholelithiasis. Wall thickening likely related to small amount of free fluid in the peritoneal cavity. The wall thickness has changes since the prior examination 2. Unchanged anasarca. Minimal amount of free fluid within the peritoneal cavity 3. Possible liver cirrhosis 4. Unchanged para[aortic adenopathy 5. No change in other incidental findings CT c/a/p 02/24/23: Chest - Impression: 1. Again seen is an irregular soft tissue attenuation mass with multiple coarse calcifications in the anterior mediastinal space measuring up to 7.1 x 2.3 x 4.8 cm, not significantly changed in size on direct comparison. Findings compatible with reported known thymic carcinoma. 2. Small right pleural effusion 3. Again seen are multiple left sided pleural based nodules, some of which are calcified. These areconcerning for pleural metastases but are not significantly changed in the interim. 4. Again seen are multiple stable non calcified pulmonary nodules 5. Again seen are multiple nonspecific mildly enlarged mediastinal lymph nodes. 6. This exam is not optimized for assessment of the pulmonary arteries. Mild low attenuation withina segmental pulmonary arterial brach in the antreior left upper lobe, as above, most likely secondary to mixing of of contrast opacified and noncontrast opacified blood Dayron/pelvis - Impression: 1. Gallbladder is partially contracted. Cholelithiasis. Gallbladder wall is mildly thickened which is at least partially secondary to gallbladder contraction. Small amount of pericholecystic fluid. Findings may be secondary to acute cholecystitis but are unchanged compared to prior exam. Clinical co rrelation suggested. 2. Mild intrahepatic and extrahepatic biliary ductal dilation. No definite obstructing stone or mass. Suggest correlation with liver function tests.Findings may be further assessed with MRCP if clinically indicataed. 3.Multiple vental hernias containing short segments of small bowel and colon but without causing bowel obstruction. 4. Fibroid uterus CT chest 04/26/23 - Impression: There is history of thymic neoplasm appearing similar overall in size. Some of the areas of subpleural and parenchymal nodularity however do appear slightly increased in the interval, suggestive of some interval progression. CT chest 06/22/23 - Impression: 1. There is an anterior mediastinal mass corresponding to the clinical history provided with lobulated and calcific margins. This measures around 5.2 x 3.2 x 2.9 cm as previously 2. Multiple primarily peripherally based pulmonary nodules as previously CT chest 08/17/23 - Impression: 1. Stable partially calcified soft tissue mass in the anterior mediastinum. This continues to measure approximately 5.2 x 3.2 x 3.9 cm 2. Stable nodular densities in the left hemithorax measuring a maximum dimension of 2.0 cm in the left lung base. No change in size or number when compared to prior examination. Findings are suspicious for metastasis. CT chest 11/09/23 - Impression: Unchanged anterior mediastinal mass and multiple left lung lesions Small pericardial effusion 2. H/o atrial fibrillation 3. HTN 4.Severe Echo 10/2022 - Interpretation Summary There is severe aortic stenosis. The mean gradient across the aortic valve is 48. The aortic valve area calculated using the continuity equation is 0.64 cm2. Left ventricular ejection fraction is estimated visually at 65%. Right ventricle is moderately dilated. Right ventricular systolic function is mildly decreased. Thepeak right ventricular systolic pressure is 33 mmHg plus RA presssure. There is a small posterior pericardial effusion. S/p TAVR 01/19/23 HPI Monica Jaramillo is seen in f/u thymic carcinoma. The history is summarized above. Today's visit is a TeleHealth encounter. Monica is by herself. She is feeling well. She has no SOB and no chest pain. She has some mild LE edema in the evening, unchanged. She measures her BP and thisis around 120-130/65-70. Her HR is 68-78.She has lost weight, intentional through dietary change. She has walker with her in clinic but doesn't use it much at home. She has a long ramp outside her door and has been walking that, up to 4x at a time. This is an increase. She has gained more weight and says she is eating very well. She does not have any LE edema. No SOB. 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 Fam Hx: No h/o cancer Review of Systems Constitutional: Negative for activity change, appetite change, fatigue, fever and unexpected weightchange. HENT: Negative. Respiratory: Negative for cough. Cardiovascular: Negative for chest pain and leg swelling. Gastrointestinal: Negative for abdominal distention and abdominal pain. Genitourinary: Negative. Musculoskeletal: Negative. Neurological: Negative. Hematological: Negative. Psychiatric/Behavioral: Negative. All other systems reviewed and are negative. Objective: Physical Exam HENT: Head: Normocephalic and atraumatic. Mouth/Throat: Pharynx: Oropharynx is clear. No oropharyngeal exudate. Eyes: General: No scleral icterus. Cardiovascular: Rate and Rhythm: Normal rate and regular rhythm. Pulmonary: Effort: Pulmonary effort is normal. No respiratory distress. Breath sounds: No wheezing or rales. Abdominal: General: There is no distension. Lymphadenopathy: Cervical: No cervical adenopathy. Upper Body: Right upper body: No supraclavicular adenopathy. Left upper body: No supraclavicular adenopathy. Skin: General: Skin is warm and dry. Findings: No rash. Neurological: General: No focal deficit present. Mental Status: She is alert. Coordination: Coordination abnormal (uses a walker). Psychiatric: Mood and Affect: Mood normal. Labs: WBC/ANC - 11/4399, Hgb/Hct - 10.4/32.4, Plts - 160,000. BUN/Cr - 18/1.05. Lytes and LFTs unremarkable. Mg - 1.8. TSH - 1.164, FT4 - 1.3 Assessment and Plan: Monica Jaramillo is 68 yo, seen in f/u of thymic carcinoma, as summarized above. The diagnosis was made in 03/2017. Initially received therapy with carboplatin/paclitaxel and received 16 cycles. During the carboplatin infusion with cycle 16, she had an infusion reaction consisting of flushing, tachycardia and hypotension which resolved with additional dexamethasone and benadryl. She also had significant problemswith myelosuppression including anemia and thrombocytopenia. CT 05/11/18 showed the disease to be stable per the report. Given the infusion reaction to the carboplatiin as well as the cumulative toxicites, the carboplatin plus paclitaxel was stopped in 05/30. We had discussed changing therapy to pembrolizumab. However, this was not approved by her insurancecompany as pembrolizumab was not at that time included on the NCCN list of recommended therapies. We submitted an appeal letter with supporting phase II data and I did a peer to peer review (Dr. Obsorn) for this. This was not approved at that time. The recommendation was to proceed with one of the NCCN recommended second line therapies for thymic carcinoma. If/when she has progression on that, it was suggested that we re-apply for the pembrolizumab. I spoke with Dr. Vega at [facility]. There were no clinical trials available there. His thought was to try sunitinib. Began sunitinib on 06/24/18 (50 pg PO per day for 4 weeks followed by 2 weeks off with cycles repeated every 6 weeks). She stopped this three days early due to myelosuppression, including grade 3 thrombocytopenia and grade 2 neutropenia. Cycle 2 was then delayed by 2 weeks due to myelosuppression. The labs improved with time and 08/18/18 she began cycle 2 at 37.5 mg/day, 2 weeks followed by one weekoff, with cycles repeated every three weeks. Restaging CT 09/26/18 - stable compared with 04/2019. Sutent was continued. She had problems with prolonged myelosuppression. Because of this she was referred to Hematology and saw Dr. Gaytan on 12/04/18. A BM biopsy was recommended to see if there was a primary underlying BM disorder such as MDS. In the meantime, the WBC and Plts improved although she remained anemic. She decided against the BM bx. She resumed therapy with sunitinib at 25 mg per day on 01/05/19, two weeks on and [address] 04/04/19 - increased size of a pericardial LN, otherwise stable. The change in the node was relatively small and we decided to continue the sunitinib and repeat the CT. CT 08/10/19 - two small but new nodules in the left lower lung. The pericardial nodule was read as stable but appeared that it may be slightly larger. Overall, it appeared that she had slow progression of disease. We talked about options, including continuing the sutent for a longer period of time vs changing to immunotherapy with pembrolizumab. Of note, she has recently had more problems with myelosuppression, pancytopenia,which is likely to limit our ability to continue the sutent on the current dose and schedule. Her strong preference was to change therapy to immunotherapy with pembrolizumab. She has a high PD-L1 score and is aware of a number of pts through an online group who have had good results with this. She is aware of the possibility of potentially serious and sometimes fatal autoimmune effects, includingmyocarditis, among others. Baseline ECG and Echo were done and the results are under scanned documents. Began immunotherapy with pembrolizumab on 08/17/19 and tolerated this well. Restaging CT scan 11/06/19 - anterior mediastinal mass was stable but there was worsening of nodularity along the anterior and left side of the pericardium, an increased right upper paratracheal LN vsmass and increased left sided pleural and fissural nodularity. The LLL nodules seen on the prior scan had resolved. We talked about the scan result and options, essentially continuing the pembrolizumab for a longer duration vs changing therapy. We decided to continue the pembrolizumab. CT was repeated on 02/06/20 - progression of the pleural nodularity on the left with an increase in a small left pleural effusion. We reviewed the images together today and I agreed that it did appearthat there was progession of the pleural disease. Given this, we decided to stop the pembrolizumab. We attempted to get lenvatinib but this was denied by her insurance. I spoke with Dr. Karuna Ramsey. His suggestion was to try gemcitabine plus capecitabine. I also spoke with Dr. Shon Ramon at [facility]. He agreed that gemcitabine plus capecitabine is very reasonable and that he would consider using lenvatinib in the next line setting. She began therapy with gemcitabine plus capecitabine on 02/29/20 and received seven cycles. CT done on 07/24/20 - increase in the left pleural effusion, a small amount of fluid on the right which is new and new tiny right lung nodules. The main mass is about the same but I am concerned that the otherfindings are indicative of disease progression. We therefore stopped the gemcitabine/capecitabine. We talked about options, including lenvatinib and pemetrexed. Started lenvatinib 24 mg PO daily on 08/18/20. Restaging CT scan 10/28/20 - improvement in the pleural disease and pleural effusions. The most recent CT, done 02/10/21 showed a similar picture, ie stable mediastinal mass and epicardial LN with decrease in pleural effusion. She will continue the lenavtinib at the same dose, 24 mg per day and we will see her in 4 weeks. When seen on 02/20/21, I was concerned that she had become polycythemic. The WBC and Plts were not elevated. 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 For further evaluation, we checked an EPO level, JAK2 and BCR/ABL PCR. The results are above. There was no evidence of MPD. 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 The reason for elevated EPO level is not clear. Her oxygen saturation has been in the high 90s. She does not smoke. Carboxyhemoglobin level WNL. Possibilities include things like YESSENIA, HENRY, EPO producing tumor. There is a casereport of erythrocytosis associated with lenvatinib use. The mechanism is not made clear in the abstract and I am not able to access the full article. There are reports of other TKIs being associatedwith erythrocytosis although in at least one of those references, it does not appear that EPO elevation is the cause. Another possibility is that this the cancer is producing EPO. The Hgb is elevatedagain. The EPO level from 08/2021 had increased. We had her discontinue the lenvatinib on 04/17/21. Recheck of the CBC showed normalization of the Hgb. The lenvatinib was restarted at 14 mg per day on 05/02/21. She is tolerating this well. The EPO level has decreased although the decrease has lagged behind the normalization of the Hgb. A restaging CT scan was done on 11/05/21. The anterior mediastinal mass was stable. However, there were new (compared with the last scan) bilateral pleural effusions. This is presumably related to thethymic carcinoma, rather than something like CHF, although prior pleural fluid cytology was negative (08/2020). There have been effusions on prior scans which have waxed and waned. An echocardiogram was done on 11/21/21 and showed normal LV size and function with an LVEF of 60-65%. The RV was mildly dilated with preserved function. She also had an ECG. Interestingly,she feels that her SOB had improved and notes that she has had effusions in the past which have resolved (cytology was negative). Whether the improvement was related to treatment or not is unclear. We decided to continue the lenvima for now and repeat a chest CT. The CT was done on 12/13/21 and showed marked improvement in the effusions. When seen on 12/18/21 she had a significant rash which had the appearance of erythema multiforme. This was felt most likely to be related to the lenvantinib. I had her stop this and started a prednisone burst. The rash has improved, the itching has resolved. Given the apparent reaction to lenvatinib,I would not rechallenge with that. Other options include everolimus and pemetrexed. On 01/12/22 she began therapy with everolimus. She was in the ED on 01/19 with SOB. A thoracentesis wasperformed with removal of 600 cc of fluid. She was also told that she had evidence of heart failurewith a high proBNP, LE edema and a pericardial effusion. She was discharged on a double dose of lasix for 2 days. The cytology from the thoracentesis is negative. She has felt better since then. She is going to continue the lasix at 40 meq/day. She will continue the potassium at 20 meq/day. She has significant edema which may be a side effect of the everolimus as well as myelosuppresison. A CT c/a/p was done on 04/05/22. The anterior mediastinal mass appeared stable. The most significant change was an increase in bilateral pleural effusions and anasarca. She had a left thoracentesis on 04/12/22, cytology negative. I changed the lasix dose to 80 mg once a day. She is noticing more output with this and also says the LE edema is slowly improving. She will continue the same dose of lasix. The everolimus has been on hold since 03/12/22 and I am not planning to restart that. This can be associated with edema and per case reports, may take several weeks to a few months to improve. She will continue the oral potassium at the same dose and I will see her again in two weeks. Overall, the LE edema has improved, although not resolved. A CT was done on 05/26/22. This appeared largely stable compared with the CT in 04/03. The left pleural effusion was smaller. When going back to the CT from 01/01 however, there was an increase in theparatracheal adenopathy and the anterior mediastinal mass looked a little bigger as well. In 06/2022 she began therapy with pemetrexed. Due to increased anemia, the second cycle (07/24) was given at 75% of full dose. She was to have received cycle 3 on 08/18/22. This was held due to weakness and increased edema. On 08/11/22, she was severely anemic and received a blood transfusion. The Hgb atthat time was 5.7. The WBC and platelets were ok. There are case reports of pemetrexed related hemolysis. I don't see that a bilirubin or other evaluation for hemolysis was done. The Hgb improved. Haptoglobin, DEBRA and reticulocyte count were done on 09/17/22. There was no indication of hemolysis although her Hgb was better by that time. A restaging CT scan was done on 10/06/22 - stable (report above) On 10/08/22 she received another dose of pemetrexed, dose reduced by 50%. Monica was admitted to [facility] from 10/22 to 11/07/22. She had presented with hematemesis, plt count of 3K and Hgb of about 7. She was seen by Hematology. Hemolysis w/u was negative. TTP and DIC were considered unlikely (Retic - not done, Haptoglobin - 230, DEBRA neg, fibrinogen - 578, UA - positive for blood, negative for bilirubin, urobilinogen). 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 She received transfusions and 4 days of dexamethasone, 40 mg/day, from 10/23 to 10/26/22. Her plt count gradually improved. She was also more dyspneic and found to be in heart failure with pulmonary edema and pleural effusions. She was diuresed. Echo showed severe . She was seen by Cardiology and discussed options, including TAVR and she plans to see Cardiology as an outpt for further discussion (she has an appt on11/23). She was in atrial fibrillation. The HR was controlled with diltiazem. Once the plt count recovered to >50k, apixaban was started. The platelet count on the day of discharge was 191,000, Hgb- 7.6. The anemia improved. She underwent TAVR on 01/19/23. We talked about starting weekly paclitaxel but have elected to observe. A restaging CT was done on 11/09/23. This is read as stable compared with 08/2023. I reviewed the images with Monica and Cass. Compared with prior scans, I felt there was slow progression of some of the pulmonary nodules and pleural disease and there was a new small pericardial effusion. We talked about restarting therapy. Because of her prior issues with heart failure and the heart valve issue, they wondered about the nature of the pericardial effusion and about having a Cardiology evaluation.A referral was made to Dr. Junior in Cardiology. She was to have been seen on 12/20/23 but that was cancelled due to transportation issues. This is rescheduled to 02/15/24. She is feeling very well. I amgoing to arrange for her to have a repeat Ct in 4-5 weeks and see her after that. documented in this encounter Plan of Treatment Upcoming Encounters Date Type Department Care Team (Late st Contact Info) Description 02/24/2024 9:00 AM EDT Office Visit Hematology/Oncology at [address] [phone] Shon Schneider MD [facility] [place] [address] Ciara Pitts APRN [address] [place] [address] HEMATOLOGY AND ONCOLOGY [place], [place] [id number] 02/24/2024 9:30 AM EDT Infusion Hematology Oncology at [address] [phone] 03/02/2024 11:00 AM EDT Office Visit Hematology/Oncology at [address] [phone] Shon Schneider MD [facility] [place] [address] [address] HEMATOLOGY [place] [address] 03/02/2024 12:30 PM EDT Infusion Hematology Oncology at [address] [phone] 03/09/2024 10:00 AM EDT Office Visit Hematology/Oncology at [address] [phone] Shon Schneider MD [facility] [place] [address] [address] HEMATOLOGY AND ONCOLOGY [place], [place] [address] 03/09/2024 10:30 AM EDT Infusion Hematology Oncology at [address] [phone] Scheduled Orders Name Type Priority Associated Diagnoses Orde r Schedule CBC (with Diff) Lab Routine Thymic carcinoma Expected: 01/25/2024 (Approximate), Expires: 12/22/2024 Comprehensive metabolic panel (non-fasting) Lab Routine Thymic carcinoma Expected: 01/25/2024 (Approximate), Expires: 12/22/2024 CT Chest w Contrast Imaging Routine Thymic carcinoma Expected: 01/25/2024 (Approximate), Expires: 07/26/2024 TSH Lab Routine Thymic carcinoma Hypothyroidism, unspecified type Expected: 01/25/2024 (Approximate), Expires: 07/26/2024 T4, free Lab Routine Thymic carcinoma Hypothyroidism, unspecified type Expected: 01/25/2024 (Approximate), Expires: 07/26/2024 documented as of this encounter Goals Goal Patient Goal Type Associated Problems Recent Progress Patient-Stated? Author DH Home Medication Compliance and Understanding Patient Facing Action Plan On track( 019 3:22 PM EST) Ivana Ashraf, [facility] Note: Remain 95% or better adherent to chemotherapy without severe side effects as assessed by days supply and patient reported adverse events at each refill documented as of this encounter Visit Diagnoses Diagnosis Thymic carcinoma Malignant neoplasm of thymus Hypothyroidism, unspecified type Thymic carcinoma Malignant neoplasm of thymus documented in this encounter Care Teams Technology Specialist Relationship Specialty Start Date End Date Jerzy Vidal MD [address] [address] [place] [address] PCP - [facility] 12/04/18 documented as of this encounter
--- OUTSIDE RECORDS SUMMARY | 2024-02-24 01:13 | XMS_ITS | Encounter Summary ---
Author Organization [facility] Address [facility] [place] [address] [place] [id number] Care Team Providers Care Optical Effects Camera Operator Name Role Phone Jerzy Vidal MD Primary Care Provider [phone] Reason for Referral * Consultation (Routine) - Authorized Specialty Diagnoses / Procedures Referred By Franklyn del rio Referred To Contact Cardiology Diagnoses Thymic carcinoma Pericardial effusion Shon Schneider MD [facility] [place] [address] Dimitry Junior MD [facility] [place] [address] Referral ID Status Reason Start Date Expiration Date Visits Requested Visits Authorized [id number] Authorized Consult, Test & Treat 12/02/2023 12/01/2024 1 1 Encounter Details Date Type Department Care Team (Late st Contact Info) Description 12/02/2023 11:30 AM EDT Office Visit Hematology/Oncology at [address] [phone] Shon Schneider MD [facility] [address] Ciara Pitts APRN [address] [place] [address] DR HEMATOLOGY AND ONCOLOGY [place], [place] [id number] Thymic carcinoma; Hypomagnesemia; Hypothyroidism, unspecified type; Pericardial effusion Social History Tobacco Use Types Packs/Day Years Used Date Smoking Tobacco: Never Smokeless Tobacco: Never Alcohol Use Standard Drinks/Week Comments Never 0 (1 standard drink = 0.6 oz pur e alcohol) DH IPV Inpatient Questions Answer Date Recorded Does [...] on file documented as of this encounter Last Filed Vital Signs Vital Sign Reading Time Taken Comments Blood Pressure 154/76 12/02/2023 11:29 AM EDT Pulse 83 12/02/2023 11:29 AM EDT Temperature 36 ??C (96.8 ??F) 12/02/2023 11: 29 AM EDT Respiratory Rate 18 12/02/2023 11:2 9 AM EDT Oxygen Saturation 95% 12/02/2023 11: 29 AM EDT Inhaled Oxygen Concentration - - Weight 116.2 kg (256 lb 3.2 oz) 024 11:29 AM EDT Height 172.7 cm (5' 7.99) 12/02/2023 1 1:29 AM EDT Body Mass Index 38.96 12/02/2023 11:29 AM EDT documented in this encounter Progress Notes * Shon Schneider MD - 12/02/2023 11:30 AM EDT Subjective: Patient ID: Monica Jaramillo is [...] pleural effusion with compression atelectasis. transferred to [facility] for further evaluation and workup and had [...] B. Biopsy of mediastinal mass 03/29 Path [place] [place] - Mediastinum, mass, biopsy: 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 [facility] - CONSULT SLIDES FROM [facility]; [place], [place]: A. MEDIASTINUM, MASS, BIOPSY ([id number]; 03/22/2017): MALIGNANT THYMIC EPITHELIAL NEOPLASM consistent with THYMIC CARCINOMA, NON-KERATINIZING SQUAMOUS CELL TYPE; see NOTE. Immunohistochemistry performed at the outside institution and reviewed at [facility] demonstrates the following staining profile in lesional cells: Positive - AE1/AE3, p40, PAX8, CD117, CD5(multifocal), CK7(scattered cells), synaptophysin, chromogranin Negative - CK20, TTF-1, GATA3, CD34 The immunohistochemical profile supports the above diagnosis. Ki67 (MIB-1) proliferation index performed at the referring institution and reviewed at [facility] is focally up to ~30%. 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 The extent of PAX8 and CD117 staining would be unusual for Nut carcinoma. B. MEDIASTINUM, ANTERIOR, 4.5 CM, ULTRASOUND GUIDED FINED NEEDLE ASPIRATION ([id number]; 03/22/17): The cytologic preparations were not reviewed [...] Second opinion with Dr. Roddy Vega in [place]. They reviewed the pathology and concurred they [...] therapy with pembrolizumab L. CT c/a/p 11/06/19 [place] [place] - IMPRESSION 1. Worsening left-sided [...] thymic carcinoma. The history is summarized above. Monica is accompanied to clinic today by her daughter Cass. She is feeling well. She has walker with her in clinic but doesn't use it much at home. She has a long ramp outside her door and has beenwalking that, up to 4x at a time. This is an increase. She has gained more weight and says she is eating very well. She does not have any LE edema. No SOB. Soc Hx: , lives in [place], [place] Tob - Never Etoh - rare [...] did a peer to peer review (Dr. Osborn) for this. This was not approved at that time. The recommendation was to proceed with one of the NCCN recommended second line therapies for thymic carcinoma. If/when she has progression on that, it was suggested that we re-apply for the pembrolizumab. I spoke with Dr. Vega at [facility]. There were no clinical trials available there. [...] spoke with Dr. Shon Ramon at [facility] [place]. He agreed that gemcitabine plus capecitabine is [...] of diagnosis of the thymic carcinoma in 2017 was WNL. For further evaluation, we checked an EPO level, JAK2 and BCR/ABL PCR. The results are above. There was no evidence of MPD. 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 The reason for elevated EPO level is not clear. Her oxygen saturation has been in the high 90s. She does not smoke. Carboxyhemoglobin level WNL. Possibilities include things like YSESENIA, HENRY, EPO producing tumor. There is a [...] reduced by 50%. Monica was [place] [facility] [place] 11[place]07[place]. She had presented [...] and Cass. Compared with prior scans, I think there is slow progression of some of the pulmonary nodules and pleural disease and there is now a small pericardial effusion. We talked about restarting therapy. Because of her prior issues with heart failure and the heart valve issue, they wondered about the nature of the pericardial effusion and about having a Cardiology evaluation. I will make a referral for her to see Dr. Junior in Cardiology and will see him afterward. documented in this encounter Plan of Treatment Upcoming Encounters Date Type Department Care Team (Late st Contact Info) Description 02/24/2024 9:00 AM EDT Office Visit Hematology/Oncology at [address] [phone] Shon Schneider MD [facility] [place] [address] HEMATOLOGY AND ONCOLOGY [place], [place] [address] [phone] 02/24/2024 9:30 AM EDT Infusion Hematology Oncology at [address] [phone] 03/02/2024 11:00 AM EDT Office Visit Hematology/Oncology at [address] [phone] Shon Schneider MD [facility] [place] [address] [address] HEMATOLOGY AND ONCOLOGY [place], [place] [address] 03/02/2024 12:30 PM EDT Infusion Hematology Oncology at [address] [phone] 03/09/2024 10:00 AM EDT Office Visit Hematology/Oncology at [address] [phone] Shon Schneider MD [facility] [place] [address] [address] HEMATOLOGY AND ONCOLOGY [place], [place] [address] [phone] 03/09/2024 10:30 AM EDT Infusion Hematology Oncology at [address] [phone] Scheduled Referrals Name Type Priority Associated Diagnoses Order Schedule Referral to Cardiology Outpatient Referral Routine Thymic carcinoma Pericardial effusion Ordered: 12/02/2023 documented as of this encounter Goals Goal Patient Goal Type Associated Problems Recent Progress Patient-Stated? Author DH Home Medication Compliance and Understanding Patient Facing Action Plan On track( 019 3:22 PM EST) No Ivana Vanegas, [facility] Note: Remain 95% or better adherent to chemotherapy without severe side effects as assessed by days supply and patient reported adverse events at each refill documented as of this encounter Visit Diagnoses Diagnosis Thymic carcinoma Malignant neoplasm of thymus Hypomagnesemia Disorders of magnesium metabolism Hypothyroidism, unspecified type Pericardial effusion Unspecified disease of pericardium Thymic carcinoma Malignant neoplasm of thymus documented in this encounter Care Teams Optical Effects Camera Operator Relationship Specialty Start Date End Date Jerzy Vidal MD [address] [place] [address] [place] [address] PCP - [facility] 12/04/18 documented as of this encounter
--- OUTSIDE RECORDS SUMMARY | 2024-02-24 01:13 | XMS_ITS | Encounter Summary ---
Author Organization [facility] Address [facility] [place] [address] Care Team Providers Care Superintendent Gas Distribution Name Role Phone Jerzy Vidal MD Primary Care Provider [phone] Encounter Details Date Type Department Care Team (Late Contact Info) Description 02/14/2024 Abstract Cardiology at [address] [phone] Napoleon Lo RN Social History Tobacco Use Types Packs/Day Years [...] AM EDT Office Visit Hematology/Oncology at [address] [phone] Shon Schneider MD [facility] [place] [address] [address] HEMATOLOGY AND [place]Y [place] [address] [phone] 02/24/2024 9:30 AM EDT Infusion Hematology Oncology at [address] [phone] 03/02/2024 11:00 AM EDT Office Visit Hematology/Oncology at [address] [phone] Shon Schneider MD [facility] [place] [place] [address] [address] HEMATOLOGY AND ONCOLOGY [place], [place] [address] [phone] 03/02/2024 12:30 PM EDT Infusion Hematology Oncology at [address] [phone] 03/09/2024 10:00 AM EDT Office Visit Hematology/Oncology at [address] [phone] Shon Schneider MD [facility] [place] [address] HEMATOLOGY AND ONCOLOGY [place], [place] [address] 03/09/2024 10:30 AM EDT Infusion Hematology Oncology at [address] [phone] documented as of this encounter Goals Goal Patient Goal Type Associated Problems Recent Progress Patient-Stated? Author DH Home Medication Compliance and Understanding Patient Facing Action Plan On track( 019 3:22 PM EST) Ivana Ashraf, [facility] Note: Remain 95% or better adherent to chemotherapy without severe side effects as assessed by days supply and patient reported adverse events at each refill documented as of this encounter Visit Diagnoses Not on filedocumented in this encounter Care Teams Superintendent Gas Distribution Relationship Specialty Start Date End Date Jerzy Vidal MD [address] [place] [address] [place] [address] PCP - [facility] 12/04/18 documented as of this encounter
--- OUTSIDE RECORDS SUMMARY | 2024-02-24 01:13 | XMS_ITS | Encounter Summary ---
Author Organization [facility] [place] [address] Care Team Providers Care Associate Professor Of Physics Name Role Phone Jerzy Vidal MD Primary Care Provider [phone] Encounter Details Date Type Department Care Team (Late Contact Info) Description 06/30/2023 Orders Only [place]emat[place] [phone] Gabby Delgadillo Social History Tobacco Use Types Packs/Day Years Used Date Smoking Tobacco: Never Smokeless Tobacco: Never Alcohol Use Standard Drinks/Week Comments Never 0 (1 standard drink = 0.6 oz pur e alcohol) FORMERLY [facility], [facility] Inpatient Questions Answer Date Recorded Does Anyone [...] 9:00 AM EDT Office Visit Hematology/Oncology at [address] [phone] Shon Schneider MD [facility] [place] [address] [address] HEMATOLOGY AND ONCOLOGY [place], [place] [address] 02/24/2024 9:30 AM EDT Infusion Hematology Oncology at [address] [phone] 03/02/2024 11:00 AM EDT Office Visit Hematology/Oncology at [address] [phone] Shon Schneider MD [facility] [place] [address] [address] HEMATOLOGY AND ONCOLOGY [place], [place] [phone] 03/02/2024 12:30 PM EDT Infusion Hematology Oncology at [address] [phone] 03/09/2024 10:00 AM EDT Office Visit Hematology/Oncology at [address] [phone] Shon Schneider MD [facility] [place] [address] [address] HEMATOLOGY AND ONCOLOGY [place], [place] [id number] 03/09/2024 10:30 AM EDT Infusion Hematology Oncology at [address] [phone] documented as of this encounter Goals Goal Patient Goal Type Associated Problems Recent Progress Patient-Stated? Author DH Home Medication Compliance and Understanding Patient Facing Action Plan On track( 019 3:22 PM EST) Ivana Ashraf, [facility] Note: Remain 95% or better adherent to chemotherapy without severe side effects as assessed by days supply and patient reported adverse events at each refill documented as of this encounter Visit Diagnoses Not on filedocumented in this encounter Care Teams Associate Professor Of Physics Relationship Specialty Start Date End Date Jerzy Vidal MD [address] [place] [address] [place] [address] PCP - [facility] Medicine 12/04/18 documented as of this encounter
--- OUTSIDE RECORDS SUMMARY | 2024-02-24 01:13 | XMS_ITS | Encounter Summary ---
Author Organization [facility] [place] [address] Care Team Providers Care Turkey Picker Name Role Phone Jerzy Vidal MD Primary Care Provider [phone] Reason for Visit * Reason Onset Date Comments Other 10/12/2023 Port flush order s Encounter Details Date Type Department Care Team (Late st Contact Info) Description 10/12/2023 Telephone Hematology/Oncology at [address] [phone] Boaz Amos, RN Other (Port flush orders) Social History Tobacco Use Types Packs/Day Years [...] on file documented as of this encounter Miscellaneous Notes * Telephone Encounter - Boaz Amos RN - 10/12/2023 4:50 PM EDT Order to be signed tomorrow 10/13 when provider is here and sent to [facility] in the morning, they weremade aware. ----- Message from Geovanna Luke sent at 10/12/2023 4:37 PM EDT ----- Liz from [facility] called and said that they would like to schedule a port flush for pt on 10/14/23 but will need orders faxed to [facility] Thank you Geovanna documented in this encounter Plan of Treatment Upcoming Encounters Date Type Department Care Team (Late st Contact Info) Description 02/24/2024 9:00 AM EDT Office Visit Hematology/Oncology at [address] [phone] Shon Schneider MD [facility] [place] [address] Ciara Pitts [address] HEMATOLOGY [place] [address] 02/24/2024 9:30 AM EDT Infusion Hematology Oncology at [address] [phone] 03/02/2024 11:00 AM EDT Office Visit Hematology/Oncology at [address] [phone] Shon Schneider MD [facility] [place] [address] Ciraa Pitts [address] HEMATOLOGY [place] [address] 03/02/2024 12:30 PM EDT Infusion Hematology Oncology at [address] [phone] 03/09/2024 10:00 AM EDT Office Visit Hematology/Oncology at [address] [phone] Shon Schneider MD [facility] [place] [address] Ciara Pitts APRN [address] [place] [address] DR HEMATOLOGY AND ONCOLOGY [place], [place] [phone] 03/09/2024 10:30 AM EDT Infusion Hematology Oncology at [address] [phone] documented as of this encounter Goals Goal Patient Goal Type Associated Problems Recent Progress Patient-Stated? Author DH Home Medication Compliance and Understanding Patient Facing Action Plan On track( 019 3:22 PM EST) Ivana Ashraf, [facility] Note: Remain 95% or better adherent to chemotherapy without severe side effects as assessed by days supply and patient reported adverse events at each refill documented as of this encounter Visit Diagnoses Not on filedocumented in this encounter Care Teams Turkey Picker Relationship Specialty Start Date End Date Jerzy Vidal MD [address] [place] [address] [place] [address] PCP - [facility] Medicine 12/04/18 documented as of this encounter
--- OUTSIDE RECORDS SUMMARY | 2024-02-24 01:13 | XMS_ITS | Clinical Summary ---
Author Organization [facility] Address [facility] [place] [address] Care Team Providers Care Wood Room Supervisor Name Role Phone Jerzy Vidal MD Primary Care Provider [phone] Allergies Active Allergy Reactions Criticality Noted Date Comments Carboplatin 05/22/2018 Kiwi (Actinidia Chinensis) Itching,Other (See Comments) High 11/02/2022 Mouth swelling Penicillins Hives 05/26/2017 Pollen Extracts Other (See Comments) 05/26/2017 rhinorrhea Medications Medication Sig Dispensed Refills Start Date End Date Status apixaban (Eliquis) 5 mg Tablet Take 5 mg by mouth 2 times daily. Active multivitamin (THERAGRAN) Tablet Take 1 tablet by mouth daily. Active ascorbic acid, vitamin C, (VITAMIN C) 500 mg Tablet, Chewable Take 1 tablet by mouth daily. Active acetaminophen (TYLENOL) 500 mg Tablet Take 1,000 mg by mouth every 6 hours as needed for Pain. Active ondansetron (Zofran) 8 mg TabletIndications:D rug-induced nausea and vomiting Take 1 tablet by mouth every 8 hours as needed for Nausea. 20 tablet 3 11/14/2020 Active Additional Information Patient not taking.Reported on 02/03/2024 folic acid (Folvite) 1 mg Tablet Take 1 mg by mouth daily. Active dilTIAZem CD (Cardizem CD) 180 mg CD (ER) 24 hr casule Take 1 capsule by mouth daily. 45 capsule 3 11/07/2022 Active PARoxetine (Paxil) 20 mg tabletIndications:D epression, unspecified depression type TAKE ONE TABLET BY MOUTH EVERY MORNING 90 tablet 3 07/01/2023 Active magnesium oxide (Mag-Ox) 400 mg (241.3 mg magnesium) TabletIndications:H ypomagnesemia Take 1 tablet by mouth 3 times daily. 90 tablet 5 08/02/2023 Active potassium chloride ER (Klor-Con M) 20 mEq ER micro-encapsulated crystal tabletIndications:H ypokalemia TAKE ONE TABLET BY MOUTH EVERY DAY 30 tablet 5 08/23/2023 Active furosemide (Lasix) 40 mg tabletIndications:T hymic carcinoma,Bilateral leg edema Take 1 tablet by mouth daily. 30 tablet 11 08/24/2023 Active aMILoride (Midamor) 5 mg tabletIndications:T hymic carcinoma,Hypomagne semia Take 1 tablet by mouth daily. 30 tablet 3 12/02/2023 Active levothyroxine (Synthroid) 150 mcg tabletIndications:H ypothyroidism, unspecified type Take 1 tablet by mouth daily. 30 tablet 5 12/02/2023 Active cyanocobalamin, Vitamin B-12, (Vitamin B-12) 100 mcg tablet Take 100 mcg by mouth daily. 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 Thus, one wonders about the notion of the pericardial effusion being related to the oncologic process. However, I think this is unlikely, as it has not changed much through the years even though the cancer has dissipated quite well. Another possibility is that the pericardial drainage has been decreased due to the history of disease in or around it. I think this is the most likely diagnosis, and would explain the stable, small level of effusion since it started. The next step in evaluation would be an echocardiogram; not just for confirmation/refutation of the effusion and its size, but also to evaluate for constrictive physiology that may explain the evident intravascular hypervolemia. - TTE Nonrheumatic aortic valve stenosis 01/19/2023 Overview (02/15/2024): 01/2023: Luna Tino 3 Ultra RESILIA 23 mm THV (s/n=[id number]) Assessment & Plan (02/15/2024 1:54 PM EDT): No issues per history nor exam. - eliquis, per afib - Anti-biotic prophylaxis required as directed against expected bacterial [place] of at-risk procedures. Abnormal uterine bleeding 01/18/2020 Pancytopenia 12/04/2018 Persistent atrial fibrillation 12/04/2018 Assessment & Plan (02/15/2024 2:14 PM EDT): No symptoms attributable. - Strategy: rate. 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 Resolved Problems Problem Noted Date Diagnosed Date Resolved Date Congestive heart failure, un specified HF chronicity, unspecified heart failure type 11/23/2022 02/15/2024 Platelet disorder 10/22/2022 02/15/2024 Encounters Date Type Department Care Team Description 02/24/2024 9:30 AM EDT Infusion Hematology Oncology at [address] [phone] 02/21/2024 Telephone Hematology/Oncolo gy at [address] [phone] Pili Chavarria 02/20/2024 Telephone Cardiology at [address] [phone] Dimitry Junior MD 02/15/2024 1:20 PM EDT Office Visit Cardiology at [address] [phone] Dimitry Junior MD Persistent atrial fibrillation; Nonrheumatic aortic valve stenosis; Pericardial effusion 02/14/2024 Abstract Cardiology at [address] [phone] Napoleon Lo RN 02/03/2024 11:00 AM EDT Office Visit Hematology/Oncolo gy at [address] [phone] Shon Schneider MD LaRoza, Stephanie A, APRN Thymic carcinoma; Macrocytic anemia 02/03/2024 Travel 01/30/2024 1:55 PM EDT Ancillary Procedure [place] [address] Unknown 01/30/2024 Interpretation Only [place] [phone] Unknown 12/26/2023 Telephone Hematology [place] [phone] Michelle Kong Prior Authorization 12/23/2023 1:30 PM EDT TH Visit (TeleHealth) Hematology/Oncolo gy at [address] [phone] Shon Schneider MD Thymic carcinoma; Hypothyroidism, unspecified type 12/02/2023 11:30 AM EDT Office Visit Hematology/Oncolo gy at [address] [phone] Shon Schneider MD LaRoza, Stephanie A, APRN Thymic carcinoma; Hypomagnesemia; Hypothyroidism, unspecified type; Pericardial effusion 12/02/2023 Telephone Cardiology at [address] [phone] Jessi Funez, latex dipper; Heart Problem (Pericardial effusion) 12/02/2023 Travel from Last 3 Months Family History Medical History Relation Comments Colorectal Cancer Mother Relation Status Comments Mother Social History Tobacco Use Types Packs/Day Years Used Date Smoking Tobacco: Never Smokeless Tobacco: Never Tobacco Cessation:Counseling Given: Not Answered Alcohol Use Standard Drinks/Week Comments Never 0 (1 standard drink = 0.6 oz pur e alcohol) [facility] Inpatient Questions Answer Date Recorded Does Anyone Try to Keep You From Having Contact with Others or Doing Things Outside Your Home? no 01/19/2023 Feels Threatened by Someone no 08/0 02/2023 Feels Unsafe at Home or Work/School no 01/19/2023 Physical Signs of Abuse Present no 01/19/2023 Sex and Gender Information Value Date Recorded Sex Assigned at Not on file Gender Identity Not on file Sexual Orientation Not on file Last Filed Vital Signs Vital Sign Reading Time Taken Comments Blood Pressure 126/63 02/15/2024 1:35 PM EDT Pulse 75 02/15/2024 1:35 PM EDT Temperature 36.1 ??C (97 ??F) 02/03/2024 10:45 AM EDT Respiratory Rate 20 02/03/2024 10:45 AM EDT Oxygen Saturation 94% 02/03/2024 10:45 AM EDT Inhaled Oxygen Concentration - - Weight 111.1 kg (245 lb) 02/15/2024 1:35 PM EDT Height 172.7 cm (5' 8) 02/15/2024 1:35 PM EDT Body Mass Index 37.25 02/15/2024 1:35 PM EDT Plan of Treatment Upcoming Encounters Date Type Department Care Team (Late st Contact Info) Description 02/24/2024 9:00 AM EDT Office Visit Hematology/Oncology at [address] [phone] Shon Schneider MD [facility] [place] [address] Ciara Pitts APRN [address] [place] [address] DR HEMATOLOGY AND ONCOLOGY [place], [place] [phone] 02/24/2024 9:30 AM EDT Infusion Hematology Oncology at [address] [phone] 03/02/2024 11:00 AM EDT Office Visit Hematology/Oncology at [address] [phone] Shon Schneider MD [facility] [place] [address] Ciara Pitts, [address] HEMATOLOGY AND ONCOLOGY [place], [place] [phone] 03/02/2024 12:30 PM EDT Infusion Hematology Oncology at [address] [phone] 03/09/2024 10:00 AM EDT Office Visit Hematology/Oncology at [address] [phone] Shon Schneider MD [facility] [place] [address] Ciara Pitts, [address] HEMATOLOGY AND ONCOLOGY [place], [place] [phone] 03/09/2024 10:30 AM EDT Infusion Hematology Oncology at [address] [phone] Health Maintenance Due Date Last Done Comments CT Colonography 1957 Colonoscopy 1957 Colorectal Cancer Screening 1957 FIT DNA 1957 FIT 1957 Sigmoidoscopy (10 year) with FIT yearly 1957 Sigmoidoscopy 1957 Lipid Screening 1975 Tdap adult 1976 Tetanus vaccine 1976 HPV test 1987 PAP Smear 1987 Breast Cancer Share Decision Needed 1997 Breast Cancer screening 1997 Zoster vaccine (1 of 2) 2007 Advance Directive 2012 Bone Density Scan 2022 Pneumoccocal Vaccine: 65+ (1 of 1 - PCV) 2022 Covid-19 Vaccine (3 - 2022-2 4 season) 2024 09/26/2020, 08/28/2020 Influenza (Flu) vaccine (1 o f 1 - Influenza standard series) 02/12/2024 Diabetes Screening (HgbA1C o r Glucose) 03/25/2026 03/25/2023, 01/20/2023, 01/19/2023, Additional history exists Hepatitis C Screening Completed 10/22/2022 Goals Goal Patient Goal Type Associated Problems Recent Progress Patient-Stated? Author DH Home Medication Compliance and Understanding Patient Facing Action Plan On track( 019 3:22 PM EST) Ivana Ashraf, [facility] Note: Remain 95% or better adherent to chemotherapy without severe side effects as assessed by days supply and patient reported adverse events at each refill Medical Devices Implanted Type Area Activities Attendant Device Identifier Shelf Expiration Date Model / Serial / Lot Luna Tino 3 Ultra Resilia Transcatheter Heart Valve-01/19/2023 Implanted:Qty: 1 on 01/19/2023 by Roddy Sultana MD Other Heart [id number] / [id number] / Procedures Procedure Name Priority Date/Time Associated Diagnosis Comments EKG 12-LEAD Routine 02/15/2024 1:[address] SCAN (SCAN) 02/01/2024 12:00 AM EDT FILM LIBRARY STORAGE ONLY CT CHEST Routine 01/30/2024 1:55 PM EDT LAB SCAN 01/30/2024 12:00 AM EDT LAB SCAN 11/29/2023 12:00 AM EDT COMPREHENSIVE METABOLIC PANEL Routine 03/25/2023 11:01 AM EDT S/P TAVR (transcatheter aortic valve replacement) HEPATITIS C ANTIBODY Routine 10/22/2022 11:10 PM EDT from Last 3 Months or Most Recently Relevant to Health Maintenance Results * EKG 12 Lead (02/15/2024 1:59 PM EDT) Ventricular rate 77 BPM MUSE SYSTEM Atrial Rate 73 BPM MUSE SYSTEM QRS Duration 76 ms MUSE SYSTEM Q-T Interval 398 ms MUSE SYSTEM QTC Calculated (Bezet) 450 ms MUSE SYSTEM Calculated R Walker 63 degrees MUSE SYSTEM Calculated T Walker 64 degrees MUSE SYSTEM INTERPRETATION Atrial fibrillation Abnormal ECG When compared with ECG of 25-MAR-2023 13:42, Nonspecific T wave abnormality no longer evident in Inferior leads Confirmed by MD Junior Daniel ([id number]) on 02/16/2024 10:44:47 AM MUSE SYSTEM 02/15/2024 1:59 PM EDT 02/16/2024 10:44 AM EDT Unknown ECG ORDERABLES Performing Organization Address City/[facility] Co de Phone Number MUSE SYSTEM * Scan Doc: CT Scan (02/01/2024 12:00 AM EDT) Anatomical Region Laterality Modality Other Narrative 02/01/2024 12:00 AM EDT Ordered by an unspecified provider. Scanning Provider MEDIA MGR SCAN EXT O RDR/RSLT * Film Library- Storage Only CT Chest (01/30/2024 1:55 PM EDT) 01/30/2024 4:48 PM EDT Narrative [facility] - 01/30/2024 4:48 PM EDT This exam is auto-finalizing. It's purpose is for storage only. Unknown IMG FILM LIBRARY ORD ERABLES Performing Organization Address [facility] de Phone Number [place], [place] * Scan Doc: Lab (01/30/2024 12:00 AM EDT) Only the most recent of2 resultswithin the time period is included. Narrative 01/30/2024 12:00 AM EDT Ordered by an unspecified provider. Scanning Provider MEDIA MGR SCAN EXT O RDR/RSLT * (ABNORMAL) Comprehensive metabolic panel (non-fasting) (03/25/2023 11:01 AM EDT) Glucose 103 65 - 199 mg/dL [facility] Comment:Diabetes: >=200 mg/d L plus symptoms Blood Urea Nitrogen 25(H) 8 - 18 mg/dL [facility] Creatinine 0.87 0.70 - 1.20 mg/dL [facility] Sodium 142 135 - 145 mmol/L [facility] Potassium 4.2 3.5 - 5.0 mmol/L [facility] Comment: Please note: ??Patients with WBC >100,000 may have falsely elevated Potassium levels. ??For accurate Potassium quantification in these patients send serum separator tube (gold top) for subsequent determinations. ??Contact the Clinical Chemistry Laboratory if there are any questions. Chloride 100 98 - 107 mmol/L [facility] Carbon Dioxide 32(H) 22 - 31 mmol/L [facility] Anion Gap 10 5 - 15 mmol/L [facility] Calcium 10.3 8.5 - 10.5 mg/dL [facility] Protein, Total 8.1(H) 6.1 - 8.0 g/dL [facility] Albumin 4.2 3.2 - 5.2 g/dL [facility] Aspartate Aminotransferase 15 0 - 30 unit/L [facility] Alanine Aminotransferase 8 0 - 30 unit/L [facility] Alkaline Phosphatase 65 35 - 105 unit/L [facility] Bilirubin, Total 0.6 0.2 - 1.3 mg/dL [facility] Est Glomerular Filtration Rate 74 >=60 mL/min/1. 73 m?? [facility] Comment: This patient's estimated GFR was calculated using the 2020 CKD-EPI equation. The estimated GFR can vary from the measured GFR by up to 30% in the absence of rapidly changing kidney function. Assessment of the estimated GFR is not appropriate when creatinine concentrations are rapidly changing. For clinical situations in which a more precise estimate of GFR is necessary, consider alternative methods of GFR estimation such as a 24-hour urine creatinine clearance. Assignment of CKD stage 1-5 for patients with an eGFR near the transition point between stages may be based on clinical assessment of muscle mass and symptoms in addition to eGFR. Blood 03/25/2023 11:0 1 AM EDT 03/25/2023 11:15 AM EDT Narrative Resulting Agency Comment Spec In Lab Roddy Sultana MD CHEMISTRY ORDERABLES [facility] [place] [address] * Hepatitis C Antibody (10/22/2022 11:10 PM EDT) Hepatitis C Antibody Negative Negative [facility] Blood 10/22/2022 11:1 0 PM EDT 10/22/2022 11:20 PM EDT Narrative Resulting Agency Comment Spec In Lab Cindy Yadav MD CHEMISTRY ORDERABLES [facility] [place] [address] from Last 3 Months or Most Recently Relevant to Health Maintenance Advance Directives Documents on File Type Date Recorded Patient Dba Developer Expl anation Personal Dba Developer 05/27/2017 3:59 PM * Attempt Cardiopulmonary Resuscitation - Inpatient (Latest Code Status on File) Date Activated Date Inactivated Comments 01/19/2023 12:26 PM 01/20/2023 3:01 PM Question Answer Comments Code Status decision made by: Patient * Attempt Cardiopulmonary Resuscitation - Inpatient Date Activated Date Inactivated Comments 01/19/2023 11:18 AM 01/19/2023 12:26 PM Question Answer Comments Code Status decision made by: Patient * Attempt Cardiopulmonary Resuscitation - Inpatient Date Activated Date Inactivated Comments 10/22/2022 10:00 PM 11/07/2022 2:14 PM Question Answer Comments Code Status decision made by: Patient Care Teams Wood Room Supervisor Relationship Specialty Start Date End Date Jerzy Vidal MD [address] [place] [address] [place] [address] PCP - General [facility] Medicine 12/04/18
--- OUTSIDE RECORDS SUMMARY | 2024-02-24 01:13 | XMS_ITS | Encounter Summary ---
Author Organization [facility] Address [facility] [place] [address] Care Team Providers Care Director Auto Name Role Phone Jerzy Vidal MD Primary Care Provider [phone] Reason for Referral * Diagnostic Test (Routine) - New Request Specialty Diagnoses / Procedures Referred By Franklyn del rio Referred To Contact Radiology Diagnoses Thymic carcinoma Procedures CT Chest w Contrast Shon Schneider MD [facility] [place] [address] Referral ID Status Reason Start Date Expiration Date Visits Requested Visits Authorized [id number] New Request Specialty Service Requested 06/24/2023 12/22/2024 1 1 Encounter Details Date Type Department Care Team (Latest Contact Info) Description 06/24/2023 2:00 PM EST TH Visit (TeleHealth) Hematology/Oncology at [address] [phone] Shon Schneider MD [facility] [place] [address] Thymic carcinoma; Hypothyroidism, unspecified type Social History Tobacco Use Types Packs/Day Years Used Date Smoking Tobacco: Never Smokeless Tobacco: Never Alcohol Use Standard Drinks/Week Comments Never 0 (1 standard drink = 0.6 oz pur e alcohol) [facility] Inpatient Questions Answer Date Recorded Does Anyone [...] Progress Notes * Shon Schneider MD - 06/24/2023 2:00 PM EST Subjective: Patient ID: Monica Jaramillo is 68 [...] pleural effusion with compression atelectasis. transferred to [facility] for further evaluation and workup and had [...] B. Biopsy of mediastinal mass 03/29 Path ([facility] [place] - Mediastinum, mass, biopsy: 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 [facility] - CONSULT SLIDES FROM [facility]; [place], [place]: A. MEDIASTINUM, MASS, BIOPSY ([id number]; 03/22/2017): MALIGNANT THYMIC EPITHELIAL NEOPLASM consistent with THYMIC CARCINOMA, NON-KERATINIZING SQUAMOUS CELL TYPE; see NOTE. Immunohistochemistry performed at the outside institution and reviewed at [facility] demonstrates the following staining profile in lesional cells: Positive - AE1/AE3, p40, PAX8, CD117, CD5(multifocal), CK7(scattered cells), synaptophysin, chromogranin Negative - CK20, TTF-1, GATA3, CD34 The immunohistochemical profile supports the above diagnosis. Ki67 (MIB-1) proliferation index performed at the referring institution and reviewed at [facility] is focally up to ~30%. 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 The extent of PAX8 and CD117 staining would be unusual for Nut carcinoma. B. MEDIASTINUM, ANTERIOR, 4.5 CM, ULTRASOUND GUIDED FINED NEEDLE ASPIRATION ([id number]; 03/22/17): The cytologic preparations were not reviewed [...] Second opinion with Dr. Roddy Vega in [place]. They reviewed the pathology and concurred they [...] therapy with pembrolizumab L. CT c/a/p 11/06/19 ([facility] [place] read) - IMPRESSION 1. Worsening left-sided [...] primarily peripherally based pulmonary nodules as previously 2. H/o atrial fibrillation 3. HTN 4.Severe [...] The history is summarized above. Today's visit was changed to a telehealth encounter due to ride issues. She is by herself. Her strength and energy are better than they have been in some time. She hosted dinner for her family, including cooking/baking. She could not have done that prior to the TAVR. Her main issue with getting around is her knee pain. No LE edema. No SOB. Her weight is 219#. Soc Hx: , lives in [place], [place] Tob - Never Etoh - rare [...] Physical Exam HENT: Head: Normocephalic and atraumatic. Eyes: General: No scleral icterus. Pulmonary: Effort: No respiratory distress. Neurological: Mental Status: She is alert. Psychiatric: Mood and Affect: Mood normal. Labs: (07/02/23) WBC/ANC - 5.08/3499, Hgb/Hct - 11.2/33.7, Plts - 106,000. BUN/Cr - 25/1.03. Lytes and LFTs unremarkable (04/26/23) WBC/ANC - 5.12/3699, Hgb/Hct - 11.4/35.2, Plts - 127,000. BUN/Cr - 24/0.89. Lytes and LFTs unremarkable (02/24/23): WBC/ANC - 4.8/, Hgb/Hct - 10.4/31.9, MCV - 102.2, Plts - 108,000. BUN/Cr - 25/0.97. CO2 - 32, alb - 3.5. Lytes and LFTs o/w unremarkable (12/30/22): WBC/ANC - 3.8/, Hgb/Hct - 8.6/27.8, MCV - 108.2, Plts - 186,000 Retic - 4.6% (12/23/22): WBC/ANC - 4.2/, Hgb/Hct - 8.5/28.4, MCV - 108, Plts - 207,000. Retic - 4.3% (12/16/22): WBC/ANC - 3.1/, Hgb/Hct - 9.4/29.9, MCV - 103.5, Plts - 225,000 Retic - 4.5% (12/10/22): WBC/ANC - 2.10/1599, Hgb/Hct - 7.1/22.7, Plts - 192,000. BUN/Cr - 17/1.06. a - 134, K - 3.2, Alb - 2.5. Lytes and LFTs o/w unremarkable. Retic - 3.5% (12/01/22): WBC/ANC - 3.09/2699, Hgb/Hct - 6.2/20.2, Plts - 131,000. Retic - 2.6%. BUN/Cr -19/1.11. NA - 131, , Alb 2.3. Lytes and LFTs o/w unremarkable. Transfused 2 units PRBCs on 12/02/22 (11/17/22): WBC/ANC - 7., Hgb/Hct - 6.3/20.4, Plts - 118,000. BUN/Cr - 19/1.03. Na - 135, K - 3.3, Alb - 2.3, Mg - 1.3. LFTs unremarkable. Transfused 2 units PRBCs (10/06/22) WBC/ANC - 4.10/3299, Hgb/Hct - 9.8/33/3, Plts -186,000 . BUN/Cr - 17/1.2. Mg - 1.5. Lytes and LFTs o/w unremarkable Haptoglobin - 144 (09/16/22) WBC/ANC - 5.10/4299, Hgb/Hct - 10/34.5, Plts - 168,000. BUN/Cr - 26/1.27. Glucose - 107, K - 3.1. alb - 3.1, t bili - 1.2, Mg - 1.7. Lytes and LFTs o/w unremarkable Retic - 4.0%; Haptoglobin - 152; DEBRA negative (06/16/22): WBC/ANC - 4.07/3099, Hgb/Hct - 11.4/36.9, Plts - 194,000. BUN/Cr - 28/1.17. Mg - 1.6. Lytes and LFTs o/w unremarkable (05/26/22): WBC/ANC - 5.09/4299, Hgb/Hct - 11.4/36.1, Plts - 183,000. BUN/Cr - 22/0.98. Mg - 1.5. Lytes and LFTs o/w unremarkable. (05/13/22): WBC/ANC - 4.08/3499, Hgb/Hct - 10.7/34.6, Plts - 197,000. BUN/Cr - 25/0.98. Mg - 1.7, alb- 3.1. Lytes and LFTs o/w unremarkable (04/27/22): WBC/ANC - 5.09/4399, Hgb/Hct - 10.8/35.6, Plts - 189,000. BUN/Cr - 20/0.92. Na - 136, K - 3.7, CO2 - 33, Alb - 3.1, Mg - 1.6. Lytes and LFTs o/w unremarkable (04/09/22); WBC/ANC - 4.02/3900, Hgb/Hct - 9.7/34.2, Plts - 226,000. BUN/Cr - 33/1.17. Na - 135, K -3.7, Mg - 1.7, alb - 3.1. Lytes and LFTs o/w unremakable. TSH - 3.763, FT4 - 1.41 (03/19/22): WBC/ANC - 3.08/2399, Hgb/Hct - 8.2/27.9, Plts - 199,000. BUN/Cr - 20/1.02. K - 3.1, Mg - , Alb - 2.8. Lytes and LFTs (03/09/22): WBC/ANC - 3.09/2499, Hgb/Hct - 8.4/27.3, Plts - 131,000. BUN/Cr - 19/1.19 , Na - 133, K -3.3, Mg - 1.6, Alb - 2.9. Lytes and LFTs o/w unremarkable. ProBNP - 2296 (02/11/22): WBC/ANC - 3.6/77%, Hgb/Hct - 10/30.6, Plts - 147,000. Retic - 2.5%. BUN/Cr - 17/0.93. NA - 131, K - 2.9, alb - 2.8. Lytes and LFTs o/w unremarkable Iron - 18, TIBC - 162, Ferritin - 885, Magnesium - 1.3, Folate - 10.1, B12 - 622. (01/27/22): WBC/ANC - 2.08/1333. Hgb/Hct - 10.8/33.3, Plts - 96,000. BUN/Cr - 19/0.87. Na - 133, alb - 2.7, Mg - 1.9. Lytes and LFTs o/w unremarkable REtic - 0.8%. Iron - 22, TIBC - 184, Sat - 12%, Ferritin - 1456. B12 - 325, Folate - 8.6. (01/19/22): WBC/ANC - 2.10/1499, Hgb/Hct - 11.2/33.6, Plts - 134,000. BUN/Cr - 18/0.7. Na - 131, K - 3.4, Ca - 8.0 with Alb - 2.6. Lytes and LFTs o/w unremarkable Pro BNP - 1752 (01/06/22): WBC/ANC - 5.07/3599, Hgb/Hct - 10.8/32.2, Plts - 186,000. BUN/Cr - 13/0.63. Na - 133, Alb- 2.4, Mg - 1.7.. Lytes and LFTs (12/25/21): WBC/ANC - 6., Hgb/Hct - 13.3/39.3, Plts - 186,000. BUN/Cr - 93/0.77. Alb - 2.6, Mg- 1.5. Lytes and LFTs o/w unremarkable. (12/11/21): WBC/ANC - 2.01/1800, Hgb/Hct - 13.8/40.4, Plts - 95,000. BUN/Cr - 10/0.83, Alb - 2.7. tot bili - 1.5, mg - 1.1 Lytes and LFTs o/w unremarkable. TSH - 12.128, FT4 - 1.32 (11/05/21): WBC/ANC - 4.02/3400, HGB/Hct - 11.9/35.8, Plts - 224,000. BUN/Cr - 26/0.9. Na - 140, T bili - 0.9, Mg - 1.8. Lytes and LFTs o/w unremarkable TSH - 11.127, FT4 - 1.48 (10/08/21): WBC/ANC - 6.10/3679, Hgb/Hct - 17/47.2, Plts - 194,000. BUN/Cr - 32/1.4. Na - 130, T bili- 1.6, alk phos - 148, Alb - 3.1. TSH - 34.5, FT4 - 1.3. (07/14/21): WBC/ANC - 4., Hgb/Hct - 15.2/44.8, Plts - 129,000. BUN/Cr - 20/0.9. Na - 134, K - 3.4, Alb - 2.8, Mg - 1.1.. Lytes and LFTs o/w unremarkable. TSH - 35.55, FT4 - 1.09 (04/15/21): WBC/ANCAMC - 4.02/2850/735 (15%), Hgb/Hct - 18.8/52.4, Plts - 126,000. BUN/Cr - 19/1.3. Tbili - 1.7, alb - 3.2, Mg - 1.8.. Lytes and LFTs o/w unremarkable. Retic - 2.8%; direct bili - 0.44. ABG - 7.55/ pO2 - 94, pCO2 - 33, sat - 99%, HCO3 - 28.4, carboxy Hgb - 1.1% (WNL) (03/05/21): WBC/ANC - 5.10/3119, Hgb/Hct - 17.6/51.8, Plts - 147,000. BUN/Cr - 18/1.4. Alb - 3.0, t bili - 1.2, mg - 1.9. TSH - 45.41 BCR/ABL p210 - Negative; JAK2 V617F - Negative; EPO - 66.5 (02/18/21) WBC/ANC - 5.08/2259, Hgb/Hct - 17.8/50, Plts - 151,000. BUN/Cr - 11/1.3. Na - 133, Mg - 1.4, Alb - 3.0, t bili - 1.2. Lytes and LFTs o/w unremarkable. LDH - 469 (313-618); TFTs TSH FT4 02/18/21 82.14 0.8. 03/05/21 45.41 04/15/21 111.25 0.77 05/14/21 22.01 1.01 06/19/21 55.03 07/14/21 35.55 1.09 01/06/22 3.906 04/05/22 3.763 1.41 05/26/22 2.595 1.52 06/16/22 3.813 1.26 09/15/22 5.418 1.39 02/24/23 1.287 1.23 EPO (2.6-18.5) 11/05/21 121 08/21/21 52.3 06/19/21 27.4 05/14/21 111 05/06/21 123 03/05/21 66.5 Hgb (12-16) 11/05/21 11.9 10/08/21 17 08/21/21 15.9 07/14/21 15.2 06/19/21 16.3 05/14/21 14.1 05/06/21 12.2 04/29/21 14.6 Lenvatinib restarted 05/01/21 (14 mg/day) 04/15/21 18.8 Lenvatinib held 04/17/21 03/05/21 17.6 02/18/21 17.8 01/22/21 17.3 01/01/21 17.3 12/04/20 16.8 10/29/20 15.2 10/09/20 15.3 09/11/20 14.6 08/28/20 13.9 07/24/20 12.2 Started lenvatinib 08/18/20 (24 mg/day) Assessment and Plan: Monica Jaramillo is 68 [...] pembrolizumab. I spoke with Dr. Vega at [facility]. There were no clinical trials available there. [...] also spoke with Dr. Shon Ramon at [facility]. He agreed that gemcitabine plus [...] reduced by 50%. Monica was admitted to [facility] from 10/22 to 11/07/22. She had presented [...] discharge was 191,000, Hgb- 7.6. The anemia has improved. She underwent TAVR on 01/19/23. A restaging CT was done on 02/24/23, report above. This was read as stable. I reviewed this with radiology. I agree that the thymic mass is stable. The right pleural effusion was a little smaller, likely related to improvement in heart failure management. There were however a couple of left sided pulmonary nodules that looked a little larger. I am uncertain as to the relationship of these to the cancer. It looks like there were nodular opacities in this area on a CT in 12/2021 which were gone in 03/2022 despite no change in therapy. We talked about starting weekly paclitaxel which is an option,as is observing for a little longer with a short term f/u CT in 6-8 weeks. The decision was made to hold off on therapy and a CT chest was done on 04/26/23. There appears to be a slight increase in some of the areas of pleural nodularity suggestive of some progression. We reviewed this together. Given that she is feeling very well and the changes are small, the decision was to hold off on therapy. A repeat CT was done on 06/22/23. I reviewed this with radiology at [facility]. The anterior mediastinal is stable. At least two of the pleural/parenchymal nodules appear a little larger. Going back to older images, I think there has been slow progression in several of these nodules. We talked about treatment today. She has felt very well off of therapy and would like to continue off of therapy. I will see her in two months with labs and a CT scan. documented in this encounter Plan of Treatment Upcoming Encounters Date Type Department Care Team (Late st Contact Info) Description 02/24/2024 9:00 AM EDT Office Visit Hematology/Oncology at [address] [phone] Shon Schneider MD [facility] [place] [address] Ciara Pitts APRN [address] [place] [address] DR HEMATOLOGY [place] [address] 02/24/2024 9:30 AM EDT Infusion Hematology Oncology at [address] [phone] 03/02/2024 11:00 AM EDT Office Visit Hematology/Oncology at [address] [phone] Shon Schneider MD [facility] [place] [address] HEMATOLOGY AND ONCOLOGY [place], [place] [address] 03/02/2024 12:30 PM EDT Infusion Hematology Oncology at [address] [phone] 03/09/2024 10:00 AM EDT Office Visit Hematology/Oncology at [address] [phone] Shon Schneider MD [facility] [place] [address] HEMATOLOGY [place] [address] 03/09/2024 10:30 AM EDT Infusion Hematology Oncology at [address] [phone] Scheduled Orders Name Type Priority Associated Diagnoses Orde r Schedule CBC (with Diff) Lab Routine Thymic carcinoma Expected: 08/17/2023, Expires: 02/16/2024 Comprehensive metabolic panel (non-fasting) Lab Routine Thymic carcinoma Expected: 08/17/2023 (Approximate), Expires: 02/16/2024 TSH Lab Routine Thymic carcinoma Hypothyroidism, unspecified type Expected: 08/17/2023 (Approximate), Expires: 02/16/2024 T4, free Lab Routine Thymic carcinoma Hypothyroidism, unspecified type Expected: 08/17/2023 (Approximate), Expires: 02/16/2024 CT Chest w Contrast Imaging Routine Thymic carcinoma Expected: 08/17/2023 (Approximate), Expires: 02/16/2024 documented as of this encounter Goals Goal Patient Goal Type Associated Problems Recent Progress Patient-Stated? Author DH Home Medication Compliance and Understanding Patient Facing Action Plan On track( 019 3:22 PM EST) Ivana Ashraf, [facility] Note: Remain 95% or better adherent to chemotherapy without severe side effects as assessed by days supply and patient reported adverse events at each refill documented as of this encounter Visit Diagnoses Diagnosis Thymic carcinoma Malignant neoplasm of thymus Hypothyroidism, unspecified type Thymic carcinoma Malignant neoplasm of thymus documented in this encounter Care Teams Director Auto Relationship Specialty Start Date End Date Jerzy Vidal MD [address] [place] [address] [place] [address] PCP - [facility] Medicine 12/04/18 documented as of this encounter
--- OUTSIDE RECORDS SUMMARY | 2024-02-24 01:13 | XMS_ITS | Encounter Summary ---
Author Organization [facility] Address [facility] [place] [address] Care Team Providers Care [employer] Name Role Phone Jerzy Vidal MD Primary Care Provider [phone] Encounter Details Date Type Department Care Team (Late st Contact Info) Description 02/21/2024 Telephone Hematology/Oncology at [address] [phone] Pili Chavarria Social History Tobacco Use Types Packs/Day Years [...] encounter Miscellaneous Notes * Telephone Encounter - Pili Chavarria - 02/21/2024 4:28 PM EDT I spoke with Monica. She would like come to [facility] for the next few weeks. Her son who usually brings her to [facility] the day before her appointments is scheduled to have surgery on 02/22 and will not be able to drive her to [facility] for the next few weeks. Her daughter, who has Fridays off, can bring her to her appointment on Fridays. Therefore would like to have labs drawn 1 hour prior to appointment at [facility] [place]. Monica has a mediport. She will resume getting her labs done at [facility] when her son has recovered enough to drive her. documented in this encounter Plan of Treatment Upcoming Encounters Date Type Department Care Team (Late st Contact Info) Description 02/24/2024 9:00 AM EDT Office Visit Hematology/Oncology at [address] [phone] Shon Schneider MD [facility] [place] [address] Ciara Pitts [address] HEMATOLOGY [place] [address] 02/24/2024 9:30 AM EDT Infusion Hematology Oncology at [address] [phone] 03/02/2024 11:00 AM EDT Office Visit Hematology/Oncology at [address] [phone] Shon Schneider MD [facility] [place] [address] HEMATOLOGY [place] [address] 03/02/2024 12:30 PM EDT Infusion Hematology Oncology at [address] [phone] 03/09/2024 10:00 AM EDT Office Visit Hematology/Oncology at [address] [phone] Shon Schneider MD [facility] [place] [address] Ciara Pitts APRN [address] [place] [address] DR HEMATOLOGY AND ONCOLOGY [place], [place] [id number] 03/09/2024 10:30 AM EDT Infusion Hematology Oncology at [address] [phone] documented as of this encounter Goals Goal Patient Goal Type Associated Problems Recent Progress Patient-Stated? Author DH Home Medication Compliance and Understanding Patient Facing Action Plan On track( 019 3:22 PM EST) No Ivana Vanegas, [facility] Note: Remain 95% or better adherent to chemotherapy without severe side effects as assessed by days supply and patient reported adverse events at each refill documented as of this encounter Visit Diagnoses Not on filedocumented in this encounter Care Teams [employer] Relationship Specialty Start Date End Date Jerzy Vidal MD [address] [place] [address] [place] [address] PCP - [facility] Medicine 12/04/18 documented as of this encounter
--- OUTSIDE RECORDS SUMMARY | 2024-02-24 01:13 | XMS_ITS | Encounter Summary ---
Author Organization [facility] Address [facility] [place] [address] Care Team Providers Care Chronometer Assembler Name Role Phone Jerzy Vidal MD Primary Care Provider [phone] Reason for Referral * Diagnostic Test (Routine) - New Request Specialty Diagnoses / Procedures Referred By Franklyn del rio Referred To Contact Cardiology Diagnoses Pericardial effusion Procedures Echocardiogram Transthoracic Dimitry Junior MD [facility] [place] [address] Referral ID Status Reason Start Date Expiration Date Visits Requested Visits Authorized [id number] New Request Specialty Service Requested 02/15/2024 08/13/2024 1 1 Reason for Visit * Reason Comments Aortic Stenosis Encounter Details Date Type Department Care Team (Late st Contact Info) Description 02/15/2024 1:20 PM EDT Office Visit Cardiology at [address] [phone] Dimitry Junior MD [facility] [place] [address] Persistent atrial fibrillation; Nonrheumatic aortic valve stenosis; Pericardial effusion Social History Tobacco Use Types [...] no 01/19/2023 Feels Threatened by Someone no 0 02/2023 Feels Unsafe at Home or Work/School [...] Pulse 75 02/15/2024 1:35 PM EDT Temperature - - Respiratory Rate - - Oxygen Saturation - - Inhaled Oxygen Concentration - - Weight 111.1 kg (245 lb) 02/15/2024 1:35 PM EDT Height 172.7 cm (5' 8) 02/15/2024 1:35 PM EDT Body Mass Index 37.25 02/15/2024 1:35 PM EDT documented in this encounter Progress Notes * Dimitry Junior MD - 02/15/2024 1:20 PM EDT Images from the original note were not included. 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 MEDICATIONS: Current Outpatient Medications Medication Instructions acetaminophen (TYLENOL) 1,000 mg, Oral, EVERY 6 HOURS PRN aMILoride (MIDAMOR) 5 mg, Oral, DAILY apixaban (ELIQUIS) 5 mg, Oral, 2 TIMES DAILY ascorbic acid, vitamin C, (VITAMIN C) 500 mg Tablet, Chewable 1 tablet, Oral, DAILY cyanocobalamin (Vitamin B-12) (VITAMIN B-12) 100 mcg, Oral, DAILY dilTIAZem CD (CARDIZEM CD) 180 mg, Oral, DAILY folic acid (VITAMIN B9) 1 mg, Oral, DAILY furosemide (LASIX) 40 mg, Oral, DAILY levothyroxine (SYNTHROID) 150 mcg, Oral, DAILY magnesium oxide (MAG-OX) 400 mg, Oral, 3 TIMES DAILY multivitamin (THERAGRAN) Tablet 1 tablet, Oral, DAILY ondansetron (ZOFRAN) 8 mg, Oral, EVERY 8 HOURS PRN PARoxetine (PAXIL) 20 mg, Oral, EVERY MORNING potassium chloride ER (Klor-Con M) 20 mEq ER micro-encapsulated crystal tablet TAKE ONE TABLET BY MOUTH EVERY DAY Subjective: Patient ID: Monica Jaramillo is a 68 y.o. female. HPI: 68 f presents on referral from oncology for pericardial effusion. She has a history of thymic cancer, and is currently not on active therapy for such. She will be starting paclitaxel next week She has noted over the past couple months a mildy progressive nyha ii dyspnea, without angina. She has no orthopnea/pnd. Has not had weight gain During restaging scan last month she was noted to have a small pericardial effusion, and thus presents for further evaluation including the dyspnea. She has persistent afib which has been well rate controlled Objective: Patient Vitals for the past 24 hrs: Pulse BP 02/15/24 1335 75 126/63 Gen: pleasant female in NAD Cor: irr, s1/s2 of nl character and amplitude, no pathologic m/r/g. Estimated RAP 11. Carotids without bruit. Pulm: CTAB. Normal diaphragmatic movement without use of accessory muscles EKG: afib 77 TTE: 01/2023 ([facility] S/p H[place]. MG 12, no regurgitation Normal bi-v s/f Trivial posterior pericardial effusion Assessment and Plan: Nonrheumatic aortic valve stenosis No issues per history nor exam. - eliquis, per afib - Anti-biotic prophylaxis required as directed against expected bacterial [place] of at-risk procedures. Persistent atrial fibrillation No symptoms attributable. - Strategy: rate. Continue diltiazem 180 - OAC: eliquis 5 bid - Reversible Causes: none identified Pericardial effusion She has had this dating back since at least 2020; in 2017 pericardial nodularity was noted at the time of the thymic cancer diagnosis. Thus, one wonders about the notion of the pericardial effusion being related to the oncologic process. However, I think this is unlikely, as it has not changed muchthrough the years even though the cancer has dissipated quite well. Another possibility is that thepericardial drainage has been decreased due to the history of disease in or around it. I think thisis the most likely diagnosis, and would explain the stable, small level of effusion since it started. The next step in evaluation would be an echocardiogram; not just for confirmation/refutation of the effusion and its size, but also to evaluate for constrictive physiology that may explain the evident intravascular hypervolemia. - TTE For the intravascular hypervolemia which may explain the recent increase in dyspnea, have advised increasing lasix to 80 QD x 3 days. She will call early next week with results. She knows that if herBP decreases, she feels orthostatic, does not have increased UOP etc, to stop the empiric lasix trial RTC pending echocardiogram Dimitry Junior MD documented in this encounter Miscellaneous Notes * Assessment & Plan Note - Dimitry Junior MD - 02/15/2024 2:48 PM EDT Associated Problem(s): Pericardial effusion She has had this dating back since at least 2020; in 2017 pericardial nodularity was noted at the time of the thymic cancer diagnosis. Thus, one wonders about the notion of the pericardial effusion being related to the oncologic process. However, I think this is unlikely, as it has not changed muchthrough the years even though the cancer has dissipated quite well. Another possibility is that thepericardial drainage has been decreased due to the history of disease in or around it. I think thisis the most likely diagnosis, and would explain the stable, small level of effusion since it started. The next step in evaluation would be an echocardiogram; not just for confirmation/refutation of the effusion and its size, but also to evaluate for constrictive physiology that may explain the evident intravascular hypervolemia. - TTE * Assessment & Plan Note - Dimitry Junior MD - 02/15/2024 2:14 PM EDT Associated Problem(s): Persistent atrial fibrillation No symptoms attributable. - Strategy: rate. Continue diltiazem 180 - OAC: eliquis 5 bid - Reversible Causes: none identified * Assessment & Plan Note - Dimitry Junior MD - 02/15/2024 1:54 PM EDT Associated Problem(s): Nonrheumatic aortic valve stenosis No issues per history nor exam. - eliquis, per afib - Anti-biotic prophylaxis required as directed against expected bacterial [place] of at-risk procedures. documented in this encounter Plan of Treatment Upcoming Encounters Date Type Department Care Team (Late st Contact Info) Description 02/24/2024 9:00 AM EDT Office Visit Hematology/Oncology at [address] [phone] Shon Schneider MD [facility] [place] [address] [address] HEMATOLOGY [place] [address] 02/24/2024 9:30 AM EDT Infusion Hematology Oncology at [address] [phone] 03/02/2024 11:00 AM EDT Office Visit Hematology/Oncology at [address] [phone] Shon Schneider MD [facility] [place] [address] [address] HEMATOLOGY AND ONCOLOGY [place], [place] [address] 03/02/2024 12:30 PM EDT Infusion Hematology Oncology at [address] [phone] 03/09/2024 10:00 AM EDT Office Visit Hematology/Oncology at [address] [phone] Shon Schneider MD [facility] [place] [address] Ciara Pitts APRN [address] [place] [address] DR HEMATOLOGY AND ONCOLOGY [place], [place] [address] 03/09/2024 10:30 AM EDT Infusion Hematology Oncology at [address] [phone] Scheduled Orders Name Type Priority Associated Diagnoses Order Schedule Echocardiogram Transthoracic Echocardiography Routine Pericardial effusion Expected: 02/15/2024, Expires: 08/16/2024 documented as of this encounter Goals Goal Patient Goal Type Associated Problems Recent Progress Patient-Stated? Author DH Home Medication Compliance and Understanding Patient Facing Action Plan On track( 019 3:22 PM EST) Ivana Ashraf, [facility] Note: Remain 95% or better adherent to chemotherapy without severe side effects as assessed by days supply and patient reported adverse events at each refill documented as of this encounter Visit Diagnoses Diagnosis Persistent atrial fibrillation Atrial fibrillation Nonrheumatic aortic valve stenosis Aortic valve disorders Pericardial effusion Unspecified disease of pericardium Thymic carcinoma Malignant neoplasm of thymus documented in this encounter Care Teams Chronometer Assembler Relationship Specialty Start Date End Date Jerzy Vidal MD [address] [place] [address] [place] [address] PCP - [facility] Medicine 12/04/18 documented as of this encounter
--- OUTSIDE RECORDS SUMMARY | 2024-02-24 01:13 | XMS_ITS | Encounter Summary ---
Author Organization [facility] Address [facility] [place] [address] Care Team Providers Care Department Mgr Name Role Phone Jerzy Vidal MD Primary Care Provider [phone] Encounter Details Date Type Department Care Team (Late st Contact Info) Description 02/20/2024 Telephone Cardiology at [address] [phone] Dimitry Junior MD [facility] [place] [address] Social History Tobacco Use Types Packs/Day Years [...] encounter Miscellaneous Notes * Telephone Encounter - Tabby Tejeda RN - 02/20/2024 3:[address] Junior- Great! Would continue if no untoward side effects until either she notes her UOP decreasing or symptoms have abated Spoke to patient and clarified with Dr. Junior- to continue 80mg Lasix until as noted above. Once decreasing UOP or other symptoms abated she can change Lasix 80mg to as needed for lower extremity edema, shortness of breath or weight gain. Monica verifies understanding of above. * Telephone Encounter - Tabby Tejeda RN - 02/20/2024 1:55 PM EDT Monica calls office to report she increased her Lasix x 3 days and she had an increase in UOP, less shortness of breath and she lost a couple of pounds. She is questioning her dose going forward sinceshe had a positive result with the increase. documented in this encounter Plan of Treatment Upcoming Encounters Date Type Department Care Team (Late st Contact Info) Description 02/24/2024 9:00 AM EDT Office Visit Hematology/Oncology at [address] [phone] Shon Schneider MD [facility] [place] [address] Ciara Pitts [address] HEMATOLOGY [place] [address] 02/24/2024 9:30 AM EDT Infusion Hematology Oncology at [address] [phone] 03/02/2024 11:00 AM EDT Office Visit Hematology/Oncology at [address] [phone] Shon Schneider MD [facility] [address] [address] HEMATOLOGY [place] [address] 03/02/2024 12:30 PM EDT Infusion Hematology Oncology at [address] [phone] 03/09/2024 10:00 AM EDT Office Visit Hematology/Oncology at [address] [phone] Shon Schneider MD [facility] [place] [address] HEMATOLOGY AND ONCOLOGY [place], [place] [phone] 03/09/2024 10:30 AM EDT Infusion Hematology Oncology at [address] [phone] documented as of this encounter Goals Goal Patient Goal Type Associated Problems Recent Progress Patient-Stated? Author DH Home Medication Compliance and Understanding Patient Facing Action Plan On track( 019 3:22 PM EST) Ivana Ashraf, [facility] Note: Remain 95% or better adherent to chemotherapy without severe side effects as assessed by days supply and patient reported adverse events at each refill documented as of this encounter Visit Diagnoses Not on filedocumented in this encounter Care Teams Department Mgr Relationship Specialty Start Date End Date Jerzy Vidal MD [address] [place] [address] [place] [address] [facility] 12/04/18 documented as of this encounter
--- OUTSIDE RECORDS SUMMARY | 2024-02-24 01:13 | XMS_ITS | Encounter Summary ---
Author Organization [facility] [place] [address] Care Team Providers Care Teletype Mechanic Name Role Phone Jerzy Vidal MD Primary Care Provider [phone] Encounter Details Date Type Department Care Team (Late Contact Info) Description 11/09/2023 Interpretation [place] [address] Shon Schneider MD [facility] [place] [address] Social History Tobacco Use Types Packs/Day Years [...] 9:00 AM EDT Office Visit Hematology/Oncology at [address] [phone] Shon Schneider MD [facility] [place] [address] [address] [place] [address] 02/24/2024 9:30 AM EDT Infusion Hematology Oncology at [address] [phone] 03/02/2024 11:00 AM EDT Office Visit Hematology/Oncology at [address] [phone] Shon Schneider MD [facility] [place] [address] [address] HEMATOLOGY AND ONCOLOGY [place], [place] [address] 03/02/2024 12:30 PM EDT Infusion Hematology Oncology at [address] [phone] 03/09/2024 10:00 AM EDT Office Visit Hematology/Oncology at [address] [phone] Shon Schneider MD [facility] [place] [address] [address] HEMATOLOGY AND ONCOLOGY [place], [place] [address] 03/09/2024 10:30 AM EDT Infusion Hematology Oncology at [address] [phone] documented as of this encounter Goals Goal Patient Goal Type Associated Problems Recent Progress Patient-Stated? Author DH Home Medication Compliance and Understanding Patient Facing Action Plan On track( 019 3:22 PM EST) Ivana Ashraf, [facility] Note: Remain 95% or better adherent to chemotherapy without severe side effects as assessed by days supply and patient reported adverse events at each refill documented as of this encounter Procedures Procedure Name Priority Date/Time Associated Diagnosis Comments FILM LIBRARY STORAGE ONLY CT CHEST Routine 11/09/2023 12:00 AM EDT documented in this encounter Results * Film Library- Storage Only CT Chest (11/09/2023 12:00 AM EDT) 11/28/2023 9:46 AM EDT Narrative [facility] 11/28/2023 9:46 AM EDT This exam is auto-finalizing. It's purpose is for storage only. Shon Schneider MD IMG FILM LIBRARY ORD ERABLES Performing Organization Address City/State/[facility] Co de Phone Number [place], [place] documented in this encounter Visit Diagnoses Not on filedocumented in this encounter Care Teams Teletype Mechanic Relationship Specialty Start Date End Date Jerzy Vidal MD [address] [place] [address] [place] [address] PCP - [facility] Medicine 12/04/18 documented as of this encounter
--- OUTSIDE RECORDS SUMMARY | 2024-02-24 01:13 | XMS_ITS | Encounter Summary ---
Author Organization [facility] Address [facility] [address] Care Team Providers Care Professor In Family Studies Name Role Phone Jerzy Vidal MD Primary Care Provider [phone] Reason for Referral * Diagnostic Test (Routine) - New Request Specialty Diagnoses / Procedures Referred By Franklyn del rio Referred To Contact Radiology Diagnoses Thymic carcinoma Procedures CT Chest w Contrast Shon Schneider MD [facility] [place] [address] Referral ID Status Reason Start Date Expiration Date Visits Requested Visits Authorized [id number] New Request Specialty Service Requested 08/19/2023 02/18/2025 1 1 Encounter Details Date Type Department Care Team (Late st Contact Info) Description 08/19/2023 10:30 AM EST Office Visit Hematology/Oncology at [address] [phone] Shon Schneider MD [facility] [place] [place] [address] Ciara Pitts APRN [address] [place] [address] DR HEMATOLOGY AND ONCOLOGY [place], [place] [phone] Thymic carcinoma; Malignant neoplasm metastatic to lung, unspecified laterality; Hypothyroidism, unspecified type Social History Tobacco Use [...] Sign Reading Time Taken Comments Blood Pressure 156/76 08/19/2023 10:18 AM EST Pulse 87 08/19/2023 10:18 AM EST Temperature 36.1 ??C (97 ??F) 08/19/2023 10:18 AM EST Respiratory Rate 18 08/19/2023 10:18 AM EST Oxygen Saturation 99% 08/19/2023 10:18 AM EST Inhaled Oxygen Concentration - - Weight 105.7 kg (233 lb) 08/19/2023 10:18 AM EST Height 172.7 cm (5' 7.99) 08/19/2023 10:[address] Body Mass Index 35.44 08/19/2023 10:18 AM EST documented in this encounter Progress Notes * Shon Schneider MD - 08/19/2023 10:30 AM EST Subjective: Patient ID: Monica Jaramillo is [...] pleural effusion with compression atelectasis. transferred to [facility] for further evaluation and workup [...] B. Biopsy of mediastinal mass 03/29 Path ([facility] review) - Mediastinum, mass, biopsy: 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 [facility] - CONSULT SLIDES FROM [facility] [place], [place]: A. MEDIASTINUM, MASS, BIOPSY ([id number]; 03/22/2017): MALIGNANT THYMIC EPITHELIAL NEOPLASM consistent with THYMIC CARCINOMA, NON-KERATINIZING SQUAMOUS CELL TYPE; see NOTE. Immunohistochemistry performed at the outside institution and reviewed at [facility] demonstrates the following staining profile in lesional cells: Positive - AE1/AE3, p40, PAX8, CD117, CD5(multifocal), CK7(scattered cells), synaptophysin, chromogranin Negative - CK20, TTF-1, GATA3, CD34 The immunohistochemical profile supports the above diagnosis. Ki67 (MIB-1) proliferation index performed at the referring institution and reviewed at [facility] is focally up to ~30%. 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 The extent of PAX8 and CD117 staining would be unusual for Nut carcinoma. B. MEDIASTINUM, ANTERIOR, 4.5 CM, ULTRASOUND GUIDED FINED NEEDLE ASPIRATION ([id number]; 03/22/17): The cytologic preparations were not reviewed [...] Second opinion with Dr. Roddy Vega in [place]. They reviewed the pathology and concurred they [...] therapy with pembrolizumab L. CT c/a/p 11/06/19 ([facility] second read) - IMPRESSION 1. Worsening [...] prior examination. Findings are suspicious for metastasis. 2. H/o atrial fibrillation 3. HTN 4.Severe [...] by her daughter Cass. She is feeling very. She is back to activities like cooking/baking. She has gained weight and says she is eating very well. She does not have any LE edema. No SOB.d Soc Hx: , lives in [place], [place] Tob - Never Etoh - rare [...] Mood and Affect: Mood normal. Labs: WBC/ANC -, Hgb/Hct - , Plts - . BUN/Cr - . Lytes and LFTs Assessment and Plan: Monica Jaramillo is 68 [...] pembrolizumab. I spoke with Dr. Vega at [facility]. There were no clinical trials available [...] also spoke with Dr. Shon Ramon at [facility]. He agreed that gemcitabine plus capecitabine is [...] reduced by 50%. Monica was admitted to [facility] from 10/22 to 11/07/22. She had [...] observe. A restaging CT was done on 06/22/23. I reviewed this with radiology at [facility]. The anterior mediastinal was stable. At least two of the pleural/parenchymal nodules appeared a little larger. Going back to older images, I think there has been slow progression in several of these nodules. We talked abouttreatment. She has felt very well off of therapy and would like to continue off of therapy. A repeat CT was done on 08/17/23 - stable. Clinically she is doing very well. No further interventionis planned at this time. I will see her back in 3 months with a repeat CT scan. documented in this encounter Plan of Treatment Upcoming Encounters Date Type Department Care Team (Late st Contact Info) Description 02/24/2024 9:00 AM EDT Office Visit Hematology/Oncology at [address] [phone] Shon Schneider MD [facility] [place] [address] Ciara Pitts APRN [address] [place] [address] DR HEMATOLOGY [place] [address] 02/24/2024 9:30 AM EDT Infusion Hematology Oncology at [address] [phone] 03/02/2024 11:00 AM EDT Office Visit Hematology/Oncology at [address] [phone] Shon Schneider MD [facility] [place] [place] [address] [address] HEMATOLOGY [place] [address] 03/02/2024 12:30 PM EDT Infusion Hematology Oncology at [address] [phone] 03/09/2024 10:00 AM EDT Office Visit Hematology/Oncology at [address] [phone] Shon Schneider MD [facility] [place] [address] [address] HEMATOLOGY [place] [address] 03/09/2024 10:30 AM EDT Infusion Hematology Oncology at [address] [phone] Scheduled Orders Name Type Priority Associated Diagnoses Orde r Schedule CT Chest w Contrast Imaging Routine Thymic carcinoma Expected: 11/19/2023 (Approximate), Expires: 05/20/2024 CBC (with Diff) Lab Routine Thymic carcinoma Expected: 11/19/2023 (Approximate), Expires: 08/18/2024 Comprehensive metabolic panel (non-fasting) Lab Routine Thymic carcinoma Expected: 11/19/2023 (Approximate), Expires: 08/18/2024 TSH Lab Routine Thymic carcinoma Hypothyroidism, unspecified type Expected: 11/19/2023 (Approximate), Expires: 05/20/2024 T4, free Lab Routine Thymic carcinoma Hypothyroidism, unspecified type Expected: 11/19/2023 (Approximate), Expires: 05/20/2024 Magnesium Lab Routine Thymic carcinoma Expected: 11/19/2023 (Approximate), Expires: 05/20/2024 documented as of this encounter Goals Goal Patient Goal Type Associated Problems Recent Progress Patient-Stated? Author DH Home Medication Compliance and Understanding Patient Facing Action Plan On track( 019 3:22 PM EST) No Ivana Vanegas, [facility] Note: Remain 95% or better adherent to chemotherapy without severe side effects as assessed by days supply and patient reported adverse events at each refill documented as of this encounter Visit Diagnoses Diagnosis Thymic carcinoma Malignant neoplasm of thymus Malignant neoplasm metastatic to lung, unspecified laterality Hypothyroidism, unspecified type Thymic carcinoma Malignant neoplasm of thymus documented in this encounter Care Teams Professor In Family Studies Relationship Specialty Start Date End Date Jerzy Vidal MD [address] [place] [address] [place] [address] PCP - [facility] Medicine 12/04/18 documented as of this encounter
--- OUTSIDE RECORDS SUMMARY | 2024-02-24 01:13 | XMS_ITS | Encounter Summary ---
[place] [address] Care Team Providers Care Certified Athletic Trainer Name Role Phone Jerzy Vidal MD Primary Care Provider [phone] Reason for Visit * Reason Onset Date Comments Prior Authorization 12/26/2023 Encounter Details Date Type Department Care Team (Late st Contact Info) Description 12/26/2023 Telephone Hematology [place] [phone] Michelle Kong Prior Authorization Social History Tobacco Use Types Packs/Day Years Used Date Smoking Tobacco: Never Smokeless Tobacco: Never Alcohol Use Standard Drinks/Week Comments Never 0 (1 standard drink = 0.6 oz pur e alcohol) [facility] Inpatient Questions Answer Date Recorded Does Anyone [...] encounter Miscellaneous Notes * Telephone Encounter - Michelle Kong - 12/26/2023 8:25 AM EDT Procedure Prior Authorization Procedure/Cpt: 86636 Ct chest Rationale: C37 Health Plan: [facility] Medicare Authorizing Vendor: [employer] Service Order/ Authorization #: Effective Date: Status: roosevelt Rohan website: no active member found Rendering Facility: [facility] 01/02/24: roosevelt Su at 1:33pm PA is not required documented in this encounter Plan of Treatment Upcoming Encounters Date Type Department Care Team (Late st Contact Info) Description 02/24/2024 9:00 AM EDT Office Visit Hematology/Oncology at [address] [phone] Shon Schneider MD [facility] [place] [address] [address] HEMATOLOGY AND ONCOLOGY [place], [place] [address] 02/24/2024 9:30 AM EDT Infusion Hematology Oncology at [address] [phone] 03/02/2024 11:00 AM EDT Office Visit Hematology/Oncology at [address] [phone] Shon Schneider MD [facility] [place] [address] [address] HEMATOLOGY AND ONCOLOGY [place], [place] [address] 03/02/2024 12:30 PM EDT Infusion Hematology Oncology at [address] [phone] 03/09/2024 10:00 AM EDT Office Visit Hematology/Oncology at [address] [phone] Shon Schneider MD [facility] [place] [address] Ciara Pitts APRN [address] [place] [address] DR HEMATOLOGY AND ONCOLOGY [place], [place] [id number] 03/09/2024 10:30 AM EDT Infusion Hematology Oncology at [address] [phone] documented as of this encounter Goals Goal Patient Goal Type Associated Problems Recent Progress Patient-Stated? Author DH Home Medication Compliance and Understanding Patient Facing Action Plan On track( 019 3:22 PM EST) No Ivana Vanegas, [facility] Note: Remain 95% or better adherent to chemotherapy without severe side effects as assessed by days supply and patient reported adverse events at each refill documented as of this encounter Visit Diagnoses Not on filedocumented in this encounter Care Teams Certified Athletic Trainer Relationship Specialty Start Date End Date Jerzy Vidal MD [address] [place] [address] [place] [address] PCP - [facility] Medicine 12/04/18 documented as of this encounter
--- OUTSIDE RECORDS SUMMARY | 2024-02-24 01:13 | XMS_ITS | Encounter Summary ---
Author Organization [facility] [place] [address] Care Team Providers Care Lay Up Operator Name Role Phone Jerzy Vidal MD Primary Care Provider [phone] Encounter Details Date Type Department Care Team (Late Contact Info) Description 01/30/2024 1:55 PM EDT Ancillary Procedure [place] [phone] Unknown None Social History Tobacco Use Types Packs/Day Years Used Date Smoking Tobacco: Never Smokeless Tobacco: Never Alcohol Use Standard Drinks/Week Comments Never 0 (1 standard drink = 0.6 oz pur e alcohol) [facility] Inpatient Questions Answer Date Recorded Does [...] 9:00 AM EDT Office Visit Hematology/Oncology at [address] [phone] Shon Schneider MD [facility] [place] [address] [address] HEMATOLOGY AND ONCOLOGY [place], [place] [address] 02/24/2024 9:30 AM EDT Infusion Hematology Oncology at [address] [phone] 03/02/2024 11:00 AM EDT Office Visit Hematology/Oncology at [address] [phone] Shon Schneider MD [facility] [place] [address] [address] HEMATOLOGY AND ONCOLOGY [place], [place] [address] 03/02/2024 12:30 PM EDT Infusion Hematology Oncology at [address] [phone] 03/09/2024 10:00 AM EDT Office Visit Hematology/Oncology at [address] [phone] Shon Schneider MD [facility] [place] [address] [address] HEMATOLOGY AND ONCOLOGY [place], [place] [address] 03/09/2024 10:30 AM EDT Infusion Hematology Oncology at [address] [phone] documented as of this encounter Goals Goal Patient Goal Type Associated Problems Recent Progress Patient-Stated? Author DH Home Medication Compliance and Understanding Patient Facing Action Plan On track( 019 3:22 PM EST) Ivana Asrhaf, [facility] Note: Remain 95% or better adherent to chemotherapy without severe side effects as assessed by days supply and patient reported adverse events at each refill documented as of this encounter Procedures Procedure Name Priority Date/Time Associated Diagnosis Comments FILM LIBRARY STORAGE ONLY CT CHEST Routine 01/30/2024 1:55 PM EDT documented in this encounter Results * Film Library- Storage Only CT Chest (01/30/2024 1:55 PM EDT) 01/30/2024 4:48 PM EDT Narrative [facility] - 01/30/2024 4:48 PM EDT This exam is auto-finalizing. It's purpose is for storage only. Unknown IMG FILM LIBRARY ORD ERABLES [place], [place] documented in this encounter Visit Diagnoses Not on filedocumented in this encounter Care Teams Lay Up Operator Relationship Specialty Start Date End Date Jerzy Vidal MD [address] [place] [address] [place] [address] PCP - [facility] Medicine 12/04/18 documented as of this encounter
--- OUTSIDE RECORDS SUMMARY | 2024-02-24 01:13 | XMS_ITS | Encounter Summary ---
Author Organization [facility] [place] [address] Care Team Providers Care Paper Wrapping Machine Operator Name Role Phone Jerzy Vidal MD Primary Care Provider [phone] Encounter Details Date Type Department Care Team (Late Contact Info) Description 01/30/2024 Interpretation [place] [phone] Unknown None Social History Tobacco Use Types Packs/Day Years Used Date Smoking Tobacco: Never Smokeless Tobacco: Never Alcohol Use Standard Drinks/Week Comments Never 0 (1 standard drink = 0.6 oz pur e alcohol) [facility] Inpatient Questions Answer Date Recorded [...] AM EDT Office Visit Hematology/Oncology at [address] [phone] Shon Schneider MD [facility] [place] [address] [address] HEMATOLOGY AND ONCOLOGY [place], [place] [address] [phone] 02/24/2024 9:30 AM EDT Infusion Hematology Oncology at [address] [phone] 03/02/2024 11:00 AM EDT Office Visit Hematology/Oncology at [address] [phone] Shon Schneider MD [facility] [place] [address] [address] HEMATOLOGY AND ONCOLOGY [place], [place] [phone] 03/02/2024 12:30 PM EDT Infusion Hematology Oncology at [address] [phone] 03/09/2024 10:00 AM EDT Office Visit Hematology/Oncology at [address] [phone] Shon Schneider MD [facility] [place] [address] [address] HEMATOLOGY AND ONCOLOGY [place], [place] [phone] 03/09/2024 10:30 AM EDT Infusion Hematology Oncology at [address] [phone] documented as of this encounter Goals Goal [...] PM EDT) 01/30/2024 4:48 PM EDT Narrative [facility] - 01/30/2024 4:48 PM EDT This exam is auto-finalizing. It's purpose is for storage only. Unknown IMG FILM LIBRARY ORD ERABLES [place], [place] documented in this encounter Visit Diagnoses Not on filedocumented in this encounter Care Teams Paper Wrapping Machine Operator Relationship Specialty Start Date End Date Jerzy Vidal MD [address] [place] [address] [place] [address] PCP - [facility] Medicine 12/04/18 documented as of this encounter
--- OUTSIDE RECORDS SUMMARY | 2024-02-24 01:13 | XMS_ITS | Encounter Summary ---
Author Organization [facility] Address [facility] [place] [address] Care Team Providers Care Evaluation Advisor Name Role Phone Jerzy Vidal MD Primary Care Provider Reason for Visit * Reason Comments Medication Refill Encounter Details Date Type Department Care Team (Late Contact Info) Description 06/30/2023 Refill Hematology/Oncology at [address] [phone] Shon Schneider MD [facility] [address] Depression, unspecified depression type Social History Tobacco Use Types Packs/Day [...] AM EDT Office Visit Hematology/Oncology at [address] [phone] Shon Schneider MD [facility] [address] HEMATOLOGY AND ONCOLOGY [place], [place] [address] [phone] 02/24/2024 9:30 AM EDT Infusion Hematology Oncology at [address] [phone] 03/02/2024 11:00 AM EDT Office Visit Hematology/Oncology at [address] [phone] Shon Schneider MD [facility] [place] [address] Ci[address] Pitts [address] HEMATOLOGY AND ONCOLOGY [place], [place] [address] 03/02/2024 12:30 PM EDT Infusion Hematology Oncology at [address] [phone] 03/09/2024 10:00 AM EDT Office Visit Hematology/Oncology at [address] [phone] Shon Schneider MD [facility] [place] [address] [address] HEMATOLOGY AND ONCOLOGY [place], [place] [phone] 03/09/2024 10:30 AM EDT Infusion Hematology Oncology at [address] [phone] documented as of this encounter Goals Goal Patient Goal Type Associated Problems Recent Progress Patient-Stated? Author DH Home Medication Compliance and Understanding Patient Facing Action Plan On track( 019 3:22 PM EST) No Ivana Vanegas, [facility] Note: Remain 95% or better adherent to chemotherapy without severe side effects as assessed by days supply and patient reported adverse events at each refill documented as of this encounter Visit Diagnoses Diagnosis Depression, unspecified depression type Thymic carcinoma Malignant neoplasm of thymus documented in this encounter Care Teams Evaluation Advisor Relationship Specialty Start Date End Date Jerzy Vidal MD [address] [place] [address] [place] [address] PCP - [facility] Medicine 12/04/18 documented as of this encounter
--- OUTSIDE RECORDS SUMMARY | 2024-02-24 01:13 | XMS_ITS | Encounter Summary ---
Author Organization [facility] [place] [address] Care Team Providers Care Campus Monitor Name Role Phone Jerzy Vidal MD Primary Care Provider [phone] Reason for Visit * Reason Onset Date Comments Medication Refill 08/24/2023 lasix Encounter Details Date Type Department Care Team (Late st Contact Info) Description 08/24/2023 Telephone Hematology/Oncology at [address] [phone] Ciara Pitts APRN [address] [place] [address] HEMATOLOGY [place] [address] Medication Refill (lasix) Social History Tobacco Use Types Packs/Day Years [...] Telephone Encounter - Boaz Amos RN - 08/24/2023 8:22 AM EDT Pt called requesting Lasix 40 mg daily refill to [facility] in [place]. Lasix not on current med list. Pt reports she has been taking 40 mg daily all along. She also takes magnesium and potassium daily. Will pend to provider to review and sign. documented in this encounter Plan of Treatment Upcoming Encounters Date Type Department Care Team (Late st Contact Info) Description 02/24/2024 9:00 AM EDT Office Visit Hematology/Oncology at [address] [phone] Shon Schneider MD [facility] [place] [address] Ciara Pitts [address] HEMATOLOGY [place] [address] 02/24/2024 9:30 AM EDT Infusion Hematology Oncology at [address] [phone] 03/02/2024 11:00 AM EDT Office Visit Hematology/Oncology at [address] [phone] Shon Schneider MD [facility] [place] [address] HEMATOLOGY [place] [address] 03/02/2024 12:30 PM EDT Infusion Hematology Oncology at [address] [phone] 03/09/2024 10:00 AM EDT Office Visit Hematology/Oncology at [address] [phone] Shon Schneider MD [facility] [place] [address] Ciara Pitts APRN [address] [place] [address] DR HEMATOLOGY AND ONCOLOGY [place], [place] [address] 03/09/2024 10:30 AM EDT Infusion Hematology Oncology at [address] [phone] documented as of this encounter Goals Goal Patient Goal Type Associated Problems Recent Progress Patient-Stated? Author DH Home Medication Compliance and Understanding Patient Facing Action Plan On track( 019 3:22 PM EST) Ivana Ashraf, [facility] Note: Remain 95% or better adherent to chemotherapy without severe side effects as assessed by days supply and patient reported adverse events at each refill documented as of this encounter Visit Diagnoses Diagnosis Thymic carcinoma Malignant neoplasm of thymus Bilateral leg edema Edema Thymic carcinoma Malignant neoplasm of thymus documented in this encounter Care Teams Campus Monitor Relationship Specialty Start Date End Date Jerzy Vidal MD [address] [place] [address] [place] [address] PCP - [facility] Medicine 12/04/18 documented as of this encounter
--- OUTSIDE RECORDS SUMMARY | 2024-02-24 01:13 | XMS_ITS | Encounter Summary ---
Author Organization [facility] Address [facility] [place] [address] Care Team Providers Care Assembler Surgical Garment Name Role Phone Jerzy Vidal MD Primary Care Provider [phone] Encounter Details Date Type Department Care Team (Latest Contact Info) Description 02/03/2024 Travel Social History Tobacco Use Types Packs/Day Years Used Date Smoking Tobacco: Never Smokeless Tobacco: Never Alcohol Use Standard Drinks/Week Comments Never 0 (1 standard drink = 0.6 oz pur e alcohol) [facility] Inpatient Questions Answer Date Recorded Does Anyone Try to Keep You From Having Contact with Others or Doing Things Outside Your Home? no 01/19/2023 Feels Threatened by Someone no 0802/2023 Feels Unsafe at Home or Work/School no [...] 9:00 AM EDT Office Visit Hematology/Oncology at [address] [phone] Shon Schneider MD [facility] [place] [address] Ciara Pitts APRN [address] [place] [address] DR [place] [address] 02/24/2024 9:30 AM EDT Infusion Hematology Oncology at [address] [phone] 03/02/2024 11:00 AM EDT Office Visit Hematology/Oncology at [address] [phone] Shon Schneider MD [facility] [place] [address] HEMATOLOGY AND ONCOLOGY [place], [place] [address] 03/02/2024 12:30 PM EDT Infusion Hematology Oncology at [address] [phone] 03/09/2024 10:00 AM EDT Office Visit Hematology/Oncology at [address] [phone] Shon Schneider MD [facility] [place] [place] [address] [place] [address] 03/09/2024 10:30 AM EDT Infusion Hematology Oncology at [address] [phone] documented as of this encounter Goals Goal Patient Goal Type Associated Problems Recent Progress Patient-Stated? Author DH Home Medication Compliance and Understanding Patient Facing Action Plan On track( 019 3:22 PM EST) Ivana Ashraf, [facility] Note: Remain 95% or better adherent to chemotherapy without severe side effects as assessed by days supply and patient reported adverse events at each refill documented as of this encounter Visit Diagnoses Not on filedocumented in this encounter Care Teams Assembler Surgical Garment Relationship Specialty Start Date End Date Jerzy Vidal MD [address] [place] [address] [place] [address] PCP - [facility] Medicine 12/04/18 documented as of this encounter
--- OUTSIDE RECORDS SUMMARY | 2024-02-24 01:13 | XMS_ITS | Encounter Summary ---
Author Organization [facility] Address [facility] [place] [address] Care Team Providers Care Commodity Loan Clerk Name Role Phone Jerzy Vidal MD Primary Care Provider [phone] Reason for Visit * Reason Comments Medication Refill Encounter Details Date Type Department Care Team (Late Contact Info) Description 08/19/2023 Refill Hematology [place] [address] Shon Schneider MD [facility] [place] [place] [address] Thymic carcinoma; Hypomagnesemia; Hypokalemia Social History Tobacco Use Types Packs/Day Years Used Date Smoking Tobacco: Never Smokeless Tobacco: Never Alcohol Use Standard Drinks/Week Comments Never 0 (1 standard drink = 0.6 oz pur e alcohol) [facility] Inpatient Questions Answer Date Recorded Does [...] 9:00 AM EDT Office Visit Hematology/Oncology at [address] [phone] Shon Schneider MD [facility] [place] [address] [address] HEMATOLOGY AND ONCOLOGY [place], [place] [address] [phone] 02/24/2024 9:30 AM EDT Infusion Hematology Oncology at [address] [phone] 03/02/2024 11:00 AM EDT Office Visit Hematology/Oncology at [address] [phone] Shon Schneider MD [facility] [place] [address] Ciara Pitts [address] HEMATOLOGY AND ONCOLOGY [place], [place] [address] 03/02/2024 12:30 PM EDT Infusion Hematology Oncology at [address] [phone] 03/09/2024 10:00 AM EDT Office Visit Hematology/Oncology at [address] [phone] Shon Schneider MD [facility] [place] [address] Ciara Pitts [address] HEMATOLOGY AND ONCOLOGY [place], [place] [phone] 03/09/2024 10:30 AM EDT Infusion Hematology Oncology at [address] [phone] documented as of this encounter Goals Goal Patient Goal Type Associated Problems Recent Progress Patient-Stated? Author DH Home Medication Compliance and Understanding Patient Facing Action Plan On track( 019 3:22 PM EST) No Ivana Vanegas, [facility] Note: Remain 95% or better adherent to chemotherapy without severe side effects as assessed by days supply and patient reported adverse events at each refill documented as of this encounter Visit Diagnoses Diagnosis Thymic carcinoma Malignant neoplasm of thymus Hypomagnesemia Disorders of magnesium metabolism Hypokalemia Hypopotassemia Thymic carcinoma Malignant neoplasm of thymus documented in this encounter Care Teams Commodity Loan Clerk Relationship Specialty Start Date End Date Jerzy Vidal MD [address] [place] [address] [place] [address] PCP - [facility] Medicine 12/04/18 documented as of this encounter
--- OUTSIDE RECORDS SUMMARY | 2024-02-24 01:13 | XMS_ITS | Encounter Summary ---
Author Organization [facility] Address [facility] [place] [address] Care Team Providers Care Log Chipper Name Role Phone Jerzy Vidal MD Primary Care Provider [phone] Reason for Visit * Reason Onset Date Comments Referral 12/02/2023 Heart Problem 12/02/2023 Pericardial effu ana Encounter Details Date Type Department Care Team (Late st Contact Info) Description 12/02/2023 Telephone Cardiology at [address] [place] [address] Jessi Funez, rate and cost analyst; Heart Problem (Pericardial effusion) Social History Tobacco Use Types Packs/Day Years [...] encounter Miscellaneous Notes * Telephone Encounter - Jessi Funez, RN - 12/02/2023 1:14 PM EDT Images from the original note were not included. Heart and Vascular Clinics [facility] Card[facility] [address] [facility], [place] [address] Monica is referred to this Cardiology clinic in [place] by hem/onc specialists for pericardial effusion. documented in this encounter Plan of Treatment Upcoming Encounters Date Type Department Care Team (Late st Contact Info) Description 02/24/2024 9:00 AM EDT Office Visit Hematology/Oncology at [address] [phone] Shon Schneider MD [facility] [place] [address] HEMATOLOGY AND ONCOLOGY [place], [place] [address] 02/24/2024 9:30 AM EDT Infusion Hematology Oncology at [address] [phone] 03/02/2024 11:00 AM EDT Office Visit Hematology/Oncology at [address] [phone] Shon Schneider MD [facility] [place] [address] [place] [address] 03/02/2024 12:30 PM EDT Infusion Hematology Oncology at [address] [phone] 03/09/2024 10:00 AM EDT Office Visit Hematology/Oncology at [address] [phone] Shon Schneider MD [facility] [place] [address] Ciara Pitts APRN [address] [place] [address] DR HEMATOLOGY AND ONCOLOGY [place], [place] [address] 03/09/2024 10:30 AM EDT Infusion Hematology Oncology at [address] [phone] documented as of this encounter Goals Goal Patient Goal Type Associated Problems Recent Progress Patient-Stated? Author DH Home Medication Compliance and Understanding Patient Facing Action Plan On track( 019 3:22 PM EST) No Ivana Vanegas, [facility] Note: Remain 95% or better adherent to chemotherapy without severe side effects as assessed by days supply and patient reported adverse events at each refill documented as of this encounter Visit Diagnoses Not on filedocumented in this encounter Care Teams Log Chipper Relationship Specialty Start Date End Date Jerzy Vidal MD [address] [place] [address] [place] [address] PCP - [facility] Medicine 12/04/18 documented as of this encounter
--- OUTSIDE RECORDS SUMMARY | 2024-02-24 01:13 | XMS_ITS | Encounter Summary ---
Author Organization [facility] [place] [address] Care Team Providers Care Traffic Checker Name Role Phone Jerzy Vidal MD Primary Care Provider [phone] Encounter Details Date Type Department Care Team (Late Contact Info) Description 08/02/2023 Orders Only Hematology/Oncology at [address] [phone] HEMATOLOGY [place] [address] Hypomagnesemia Social History Tobacco Use Types Packs/Day Years [...] 9:00 AM EDT Office Visit Hematology/Oncology at [address] [phone] Shon Schneider MD [facility] [place] [address] [address] HEMATOLOGY [place] [address] 02/24/2024 9:30 AM EDT Infusion Hematology Oncology at [address] [phone] 03/02/2024 11:00 AM EDT Office Visit Hematology/Oncology at [address] [phone] Shon Schneidre MD [facility] [place] [address] [address] HEMATOLOGY [place] [address] 03/02/2024 12:30 PM EDT Infusion Hematology Oncology at [address] [phone] 03/09/2024 10:00 AM EDT Office Visit Hematology/Oncology at [address] [phone] Shon Schneider MD [facility] [place] [address] [address] HEMATOLOGY AND ONCOLOGY [place], [place] [address] 03/09/2024 10:30 AM EDT Infusion Hematology Oncology at [address] [phone] documented as of this encounter Goals Goal Patient Goal Type Associated Problems Recent Progress Patient-Stated? 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
--- OUTSIDE RECORDS SUMMARY | 2024-02-24 01:13 | XMS_ITS | Continuity of Care Document ---
Author Organization [facility] Address [address] [place] [address] Care Team Providers Care Industrial Garage Servicer Name Role Phone Young Jerzy Severino Primary Care Physician [phone] Encounter [facility] Date(s): 06/22/23 - 06/22/[address] [phone] Discharge Disposition: Home or Self Care Attending [...] DAY, # 90 cap, 1 Refill(s), [facility]: [id number] 173, cm, 11/17/22 15:06:00 EDT, Height/Length Dosing, 117, kg, 11/17/22 15:06:00 EDT, Weight Dosing Start Date: 05/26/23 Status: Ordered Eliquis 5 mg oral tablet See Instructions, TAKE ONE TABLET BY MOUTH TWICE A DAY, # 180 tab, 2 Refill(s), [facility]: [id number], 173, cm, 11/17/22 15:06:00 EDT, Height/Length Dosing, 117, kg, 11/17/22 15:06:00 EDT, Weight Dosing Start Date: 05/24/23 Status: Ordered furosemide 80 mg oral tablet 40 mg = 0.5 tab, Take 40mg daily per [facility] KIMBERLY Calles, 0 Refill(s) Start Date: 11/17/22 Status: Ordered levothyroxine 150 mcg (0.15 mg) oral tablet 150 mcg = 1 tab, Oral, Daily Start Date: 11/25/21 Status: Ordered lidocaine 5% patch 1 patches, Topical, Daily, Leave on for 12 hours and remove for 12 hours. KIMBERLY Calles -[facility]., # 30 patches, 3 Refill(s) Start Date: [...] pain, # 60 tab, 0 Refill(s), [facility]: [id number], 173, cm, 11/17/22 15:06:00 EDT, Height/Length [...] Appendectomy and Drainage of Intraabdominal Abscess [id number] [id number] 6POWER PORT Results Laboratory List Name Date Automated Diff 06/22/23 CBC w/ Diff 06/22/23 Comprehensive Metabolic Panel 06/22/23 Most recent to oldest [Reference Range]: 1 WBC [5.0-10.0 x10^3/mcL] 5.3 x10^3/mcL (06/22/23 2:02 PM) RBC [4.1-5.3 x10^6/mcL] 3.4 x10^6/mcL *LOW* (06/22/23 2:02 PM) Neutro Auto [40.0-75.0 %] 65.7 % (06/22/23 2:02 PM) Lymph Auto [20.0-50.0 %] 14.3 % *LOW* (06/22/23 2:02 PM) Rosebud Auto [2.0-15.0 %] 13.7 % (06/22/23 2:02 PM) Basophil Auto [0.0-1.0 %] 0.8 % (06/22/23 2:02 PM) BUN [7-18 mg/dL] 25 mg/dL *HI* (06/22/23 2:02 PM) Glucose Level [74-106 mg/dL] 110 mg/dL *HI* (06/22/23 2:02 PM) Potassium Level [3.5-5.1 mmol/L] 4.1 mmo l/L (06/22/23 2:02 PM) MCV [80.0-96.0 fL] 98.8 fL *HI* (06/22/23 2:02 PM) AST [15-37 unit/L] 18 unit/L (06/22/23 2:02 PM) ALT [14-59 unit/L] 13 unit/L *LOW* (06/22/23 2:02 PM) MCHC [31.0-35.0 g/dL] 33.2 g/dL (06/22/23 2:02 PM) Sodium Level [136-145 mmol/L] 139 mmol/L (06/22/23 2:02 PM) Hct [37.0-47.0 %] 33.7 % *LOW* (06/22/23 2:02 PM) Calcium Level [8.5-10.1 mg/dL] 9.5 mg/dL (06/22/23 2:02 PM) Albumin Level [3.4-5.0 g/dL] 3.4 g/dL (06/22/23 2:02 PM) Protein Total [6.4-8.2 g/dL] 7.5 g/dL (06/22/23 2:02 PM) MCH [26.0-32.0 pg] 32.8 pg *HI* (06/22/23 2:02 PM) Neutro Absolute 3.5 x10^3/mcL *NA* (06/22/23 2:02 PM) Bilirubin Total [0.2-1.0 mg/dL] 0.7 mg/d L (06/22/23 2:02 PM) Hgb [12.0-16.0 g/dL] 11.2 g/dL *LOW* (06/22/23 2:02 PM) Alk Phos [46-146 unit/L] 66 unit/L (06/22/23 2:02 PM) Platelets [130-450 x10^3/mcL] 106 x10^3/ mcL *LOW* (06/22/23 2:02 PM) CO2 [21-32 mmol/L] 30 mmol/L (06/22/23 2:02 PM) eGFR Non-AA [>=60] 60 (06/22/23 2:02 PM) eGFR AA [>=60] 60 (06/22/23 2:02 PM) Chloride Level [98-107 mmol/L] 101 mmol/ L (06/22/23 2:02 PM) RDW-CV [11.5-14.5 %] 13.5 % (06/22/23 2:02 PM) Imm Gran Auto [0.0-0.9 %] 0.4 % (06/22/23 2:02 PM) Creatinine Level [0.55-1.02 mg/dL] 1.03 mg/dL *HI* (06/22/23 2:02 PM) Eos, Auto [1.0-6.0 %] 5.1 % (06/22/23 2:02 PM) Social History Social History Type Response Smoking Status Smoking tobacco use: Never tobacco user;Never entered on: 04/08/22 Sex Female Patient Care team information Care Team Personnel Name: Jerzy Vidal MD Position: Physician Member Role: Informed Provider Address: Address: [address] Care Team Related Persons Name: FRANCOIS PIERRE Name: CESAR KNOX
--- OUTSIDE RECORDS SUMMARY | 2024-02-24 01:13 | XMS_ITS | Encounter Summary ---
Author Organization [facility] [place] [address] Care Team Providers Care Academic Support Director Name Role Phone Jerzy Vidal MD Primary Care Provider [phone] Encounter Details Date Type Department Care Team (Late Contact Info) Description 11/09/2023 Ancillary Procedure [place] [address] Shon Schneider MD [facility] [place] [address] Social History Tobacco Use Types Packs/Day Years [...] AM EDT Office Visit Hematology/Oncology at [address] [phone] Shon Schneider MD [facility] [place] [address] [address] [place] [address] 02/24/2024 9:30 AM EDT Infusion Hematology Oncology at [address] [phone] 03/02/2024 11:00 AM EDT Office Visit Hematology/Oncology at [address] [phone] Shon Schneider MD [facility] [place] [address] [address] HEMATOLOGY AND ONCOLOGY [place], [place] [address] 03/02/2024 12:30 PM EDT Infusion Hematology Oncology at [address] [phone] 03/09/2024 10:00 AM EDT Office Visit Hematology/Oncology at [address] [phone] Shon Schneider MD [facility] [place] [address] [address] HEMATOLOGY AND ONCOLOGY [place], [place] [address] 03/09/2024 10:30 AM EDT Infusion Hematology Oncology at [address] [phone] documented as of this encounter Goals Goal Patient Goal Type Associated Problems Recent Progress Patient-Stated? Author DH Home Medication Compliance and Understanding Patient Facing Action Plan On track( 019 3:22 PM EST) Ivana Ashraf, [facility] Note: Remain 95% or better [...] AM EDT) 11/28/2023 9:46 AM EDT Narrative [facility] 11/28/2023 9:46 AM EDT This exam is auto-finalizing. It's purpose is for storage only. Shon Schneider MD IMG FILM LIBRARY ORD ERABLES Performing Organization Address City/State/[facility] Co de Phone Number [place], [place] documented in this encounter Visit Diagnoses Not on filedocumented in this encounter Care Teams Academic Support Director Relationship Specialty Start Date End Date Jerzy Vidal MD [address] [place] [address] [place] [place] [address] PCP - [facility] Medicine 12/04/18 documented as of this encounter
--- OUTSIDE RECORDS SUMMARY | 2024-02-24 01:13 | XMS_ITS | Encounter Summary ---
Author Organization [facility] Address [facility] [place] [address] Care Team Providers Care Instructional Material Director Name Role Phone Jerzy Vidal MD Primary Care Provider Encounter Details Date Type Department Care Team (Late st Contact Info) Description 02/03/2024 11:00 AM EDT Office Visit Hematology/Oncology at [address] [phone] Shon Schneider MD [facility] [place] [address] Ciara Pitts APRN [address] [place] [address] DR HEMATOLOGY AND ONCOLOGY [place], [place] [id number] Thymic carcinoma; Macrocytic anemia Social History Tobacco Use Types Packs/Day Years [...] Sign Reading Time Taken Comments Blood Pressure 150/67 02/03/2024 10:45 AM EDT Pulse 84 02/03/2024 10:45 AM EDT Temperature 36.1 ??C (97 ??F) 02/03/2024 10:45 AM EDT Respiratory Rate 20 02/03/2024 10:45 AM EDT Oxygen Saturation 94% 02/03/2024 10:45 AM EDT Inhaled Oxygen Concentration - - Weight 112.9 kg (249 lb) 02/03/2024 10:45 AM EDT Height 172.7 cm (5' 7.99) 02/03/2024 10:45 AM E DT Body Mass Index 37.87 02/03/2024 10:45 AM EDT documented in this encounter Progress Notes * Shon Schneider MD - 02/03/2024 11:00 AM EDT Subjective: Patient ID: Monica Jaramillo [...] pleural effusion with compression atelectasis. transferred to [facility] for further evaluation and workup and [...] and Women's review - CONSULT SLIDES FROM ; [place], [place]: A. 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 Immunohistochemistry performed at the outside institution and reviewed at [facility] demonstrates the following staining profile in lesional cells: Positive - AE1/AE3, p40, PAX8, CD117, CD5(multifocal), CK7(scattered cells), synaptophysin, chromogranin Negative - CK20, TTF-1, GATA3, CD34 The immunohistochemical profile supports the above diagnosis. Ki67 (MIB-1) proliferation index performed at the referring institution and reviewed at [facility] is focally up to ~30%. 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 The extent of PAX8 and CD117 staining would be unusual for Nut carcinoma. B. MEDIASTINUM, ANTERIOR, 4.5 CM, ULTRASOUND GUIDED FINED NEEDLE ASPIRATION ([id number]; 03/22/17): The cytologic preparations were not reviewed [...] Second opinion with Dr. Roddy Vega in [place]. They reviewed the pathology and concurred they [...] began therapy with gemcitabine plus capecitabine on 9/18/20. N. CT chest 03/06/20 - Impression: 1. [...] multiple left lung lesions Small pericardial effusion CT chest 01/30/24 - Impression: 1. Stable anterior mediastinal mass. Stable pulmonary and pleural based nodules/masses 2. Mediastinal lymphadenopathy appears increased in size compared to prior exam notably in the right paratracheal region 3. Small pericardial effusion slightly increased in size compared to prior exam 4. Interval small increase in trace left sided pleural effusion 5. Partially calcified solid mass in the left breast. Recommend correlation with breast mammography. 2. H/o atrial fibrillation 3. HTN 4.Severe [...] Cass. She is feeling well. She has some SOBat times. This became more noticeable when it was more humid and has persisted. She has some mild LE edema in the evening, unchanged. She measures her BP 3x/week and these have been good, generally 120-130/65-70. Her HR is 68-78.She has lost [...] No SOB. Soc Hx: , lives in [place], [place] Tob - Never Etoh - rare [...] and Affect: Mood normal. Labs: WBC/ANC - 6.12/5499, Hgb/Hct - 9.7/30.8, Plts - 167,000. BUN/Cr - 18/1.13. T bili - 1.2. Lytesand LFTs o/w unremarkable. Mg - 1.8. (01/30/24) TSH - 1.472, FT4 - 1.39 Assessment and Plan: Monica Jaramillo is 68 [...] pembrolizumab. I spoke with Dr. Vega at [facility]. There were no clinical trials available [...] also spoke with Dr. Shon Ramon at [facility] [place]. He agreed that gemcitabine plus capecitabine is [...] improved. She underwent TAVR on 01/19/23. We had talked about starting weekly paclitaxel but have elected to observe. A restaging CT was done on 01/30/24. When compared with 11/09/23, the anterior mediastinal mass are stable. A right paratracheal node appears larger and the pericardial effusion is a bit larger. We talked about the scan findings and will plan to start weekly paclitaxel. A referral was made to Dr. Junior in Cardiology. This is scheduled on 02/15/24. I will see her after she sees Dr. Junior and plan to start treatment then. documented in this encounter Plan of Treatment Upcoming Encounters Date Type Department Care Team (Late st Contact Info) Description 02/24/2024 9:00 AM EDT Office Visit Hematology/Oncology at [address] [phone] Shon Schneider MD [facility] [place] [address] [address] HEMATOLOGY [place] [address] 02/24/2024 9:30 AM EDT Infusion Hematology Oncology at [address] [phone] 03/02/2024 11:00 AM EDT Office Visit Hematology/Oncology at [address] [phone] Shon Schneider MD [facility] [place] [address] HEMATOLOGY [place] [address] 03/02/2024 12:30 PM EDT Infusion Hematology Oncology at [address] [phone] 03/09/2024 10:00 AM EDT Office Visit Hematology/Oncology at [address] [phone] Shon Schneider MD [facility] [place] [address] [address] HEMATOLOGY AND ONCOLOGY [place], [place] [address] 03/09/2024 10:30 AM EDT Infusion Hematology Oncology at [address] [phone] Scheduled Orders Name Type Priority Associated Diagnoses Orde r Schedule Iron and TIBC Lab Routine Macrocytic anemia Expected: 02/10/2024 (Approximate), Expires: 08/11/2024 Ferritin Lab Routine Macrocytic anemia Expected: 02/10/2024 (Approximate), Expires: 08/11/2024 Vitamin B12 Lab Routine Macrocytic anemia Expected: 02/10/2024 (Approximate), Expires: 08/11/2024 Folate, serum Lab Routine Macrocytic anemia Expected: 02/10/2024 (Approximate), Expires: 08/11/2024 Reticulocyte Count Lab Routine Macrocytic anemia Expected: 02/10/2024 (Approximate), Expires: 08/11/2024 CBC (with Diff) Lab Routine Thymic carcinoma Once a week for 6 Occurrences starting 02/03/2024 until 02/02/2025 Comprehensive metabolic panel Lab Routine Thymic carcinoma Once a week for 12 Occurrences starting 02/03/2024 until 02/02/2025 documented as of this encounter Goals Goal Patient Goal Type Associated Problems Recent Progress Patient-Stated? Author DH Home Medication Compliance and Understanding Patient Facing Action Plan On track( 019 3:22 PM EST) Ivana Ashraf, [facility] Note: Remain 95% or better adherent to chemotherapy without severe side effects as assessed by days supply and patient reported adverse events at each refill documented as of this encounter Visit Diagnoses Diagnosis Thymic carcinoma Malignant neoplasm of thymus Macrocytic anemia Unspecified deficiency anemia Thymic carcinoma Malignant neoplasm of thymus documented in this encounter Care Teams Instructional Material Director Relationship Specialty Start Date End Date Jerzy Vidal MD [address] [place] [address] [place] [address] PCP - [facility] 12/04/18 documented as of this encounter
--- OUTSIDE RECORDS SUMMARY | 2024-02-24 01:13 | XMS_ITS | Encounter Summary ---
Author Organization [place] [address] Care Team Providers Care Steward Racetrack Name Role Phone Jerzy Vidal MD Primary Care Provider Encounter Details Date Type Department Care Team (Late Contact Info) Description 08/17/2023 Ancillary Procedure [place] [address] Jerzy Vidal MD [address] [place] [phone] Social History Tobacco Use Types Packs/Day Years Used Date Smoking Tobacco: Never Smokeless Tobacco: Never Alcohol Use Standard Drinks/Week Comments Never 0 (1 standard drink = 0.6 oz pur e alcohol) [facility] Inpatient Questions Answer Date Recorded Does Anyone [...] AM EDT Office Visit Hematology/Oncology at [address] [phone] Shon Schneider MD [facility] [place] [address] [place] [address] 02/24/2024 9:30 AM EDT Infusion Hematology Oncology at [address] [phone] 03/02/2024 11:00 AM EDT Office Visit Hematology/Oncology at [address] [phone] Shon Schneider MD [facility] [place] [address] [address] HEMATOLOGY AND ONCOLOGY [place], [place] [address] 03/02/2024 12:30 PM EDT Infusion Hematology Oncology at [address] [phone] 03/09/2024 10:00 AM EDT Office Visit Hematology/Oncology at [address] [phone] Shon Schneider MD [facility] [place] [address] [address] HEMATOLOGY AND ONCOLOGY [place], [place] [address] 03/09/2024 10:30 AM EDT Infusion Hematology Oncology at [address] [phone] documented as of this encounter Goals Goal Patient Goal Type Associated Problems Recent Progress Patient-Stated? Author DH Home Medication Compliance and Understanding Patient Facing Action Plan On track( 019 3:22 PM EST) No Ivana Vanegas, [facility] Note: Remain 95% or better adherent to chemotherapy without severe side effects as assessed by days supply and patient reported adverse events at each refill documented as of this encounter Procedures Procedure Name Priority Date/Time Associated Diagnosis Comments FILM LIBRARY STORAGE ONLY CT CHEST Routine 08/17/2023 12:00 AM EST documented in this encounter Results * Film Library- Storage Only CT Chest (08/17/2023 12:00 AM EST) Narrative [facility]NOTE 2] - 08/18/2023 10:26 AM EST This exam is auto-finalizing. It's purpose is for storage only. Jerzy Vidal MD G FILM LIBRARY ORD ERABLES Performing Organization Address City/State/[facility] Co de Phone Number [place], [place] documented in this encounter Visit Diagnoses Not on filedocumented in this encounter Care Teams Steward Racetrack Relationship Specialty Start Date End Date Jerzy Vidal MD [address] [place] [address] [place] [place] [address] PCP - [facility] Medicine 12/04/18 documented as of this encounter
--- OUTSIDE RECORDS SUMMARY | 2024-02-24 01:13 | XMS_ITS | Encounter Summary ---
Author Organization [facility] Address [facility] [place] [address] Care Team Providers Care Manufacturing Plant Technician Name Role Phone Jerzy Vidal MD Primary Care Provider [phone] Encounter Details Date Type Department Care Team (Latest Contact Info) Description 08/19/2023 Travel Social History Tobacco Use Types Packs/Day [...] 9:00 AM EDT Office Visit Hematology/Oncology at [address] [phone] Shon Schneider MD [facility] [place] [address] Ciara Pitts APRN [address] [place] [address] [place] [address] 02/24/2024 9:30 AM EDT Infusion Hematology Oncology at [address] [phone] 03/02/2024 11:00 AM EDT Office Visit Hematology/Oncology at [address] [phone] Shon Schneider MD [facility] [place] [address] HEMATOLOGY AND ONCOLOGY [place], [place] [address] 03/02/2024 12:30 PM EDT Infusion Hematology Oncology at [address] [phone] 03/09/2024 10:00 AM EDT Office Visit Hematology/Oncology at [address] [phone] Shon Schneider MD [facility] [place] [place] [address] [place] [address] 03/09/2024 10:30 AM EDT Infusion Hematology Oncology at [address] [phone] documented as of this encounter Goals Goal Patient Goal Type Associated Problems Recent Progress Patient-Stated? Author DH Home Medication Compliance and Understanding Patient Facing Action Plan On track( 019 3:22 PM EST) Ivana Ashraf, [facility] Note: Remain 95% or better adherent to chemotherapy without severe side effects as assessed by days supply and patient reported adverse events at each refill documented as of this encounter Visit Diagnoses Not on filedocumented in this encounter Care Teams Manufacturing Plant Technician Relationship Specialty Start Date End Date Jerzy Vidal MD [address] [place] [address] [place] [address] PCP - [facility] Medicine 12/04/18 documented as of this encounter
--- OUTSIDE RECORDS SUMMARY | 2024-02-24 01:13 | XMS_ITS | Encounter Summary ---
Author Organization [facility] Address [facility] [place] [address] Care Team Providers Care Development Director Name Role Phone Jerzy Vidal MD Primary Care Provider [phone] Reason for Visit * Treatment/Therapy Plan Authorization (Routine) - Authorized Specialty Diagnoses / Procedures Referred By Franklyn del rio Referred To Contact Hematology and Oncology Diagnoses Taxol (Paclitaxel) - Weekly Procedures INFUSION ROOM Shon Schneider MD [address] [place] [address] [place] [address] St Hem Onc Infusion [address] [place] [phone] Referral ID Status Reason Start Date Expiration Date V isits Requested Visits Authorized [id number] Authorized 02/16/2024 02/15/2025 99 99 Encounter Details Date Type Department Care Team (Late st Contact Info) Description 02/24/2024 9:30 AM EDT Infusion Hematology Oncology at [address] [phone] Social History Tobacco Use Types Packs/Day Years [...] 9:00 AM EDT Office Visit Hematology/Oncology at [address] [phone] Shon Schneider MD [facility] [place] [address] [address] HEMATOLOGY AND ONCOLOGY [place], [place] [address] 03/02/2024 11:00 AM EDT Office Visit Hematology/Oncology at [address] [phone] Shon Schneider MD [facility] [place] [address] [address] [place] [address] 03/02/2024 12:30 PM EDT Infusion Hematology Oncology at [address] [phone] 03/09/2024 10:00 AM EDT Office Visit Hematology/Oncology at [address] [phone] Shon Schneider MD [facility] [place] [address] HEMATOLOGY AND ONCOLOGY [place], [place] [address] 03/09/2024 10:30 AM EDT Infusion Hematology Oncology at [address] [phone] documented as of this encounter Goals Goal Patient Goal Type Associated Problems Recent Progress Patient-Stated? Author DH Home Medication Compliance and Understanding Patient Facing Action Plan On track( 019 3:22 PM EST) No Ivana Vanegas, [facility] Note: Remain 95% or better adherent to chemotherapy without severe side effects as assessed by days supply and patient reported adverse events at each refill documented as of this encounter Visit Diagnoses Not on filedocumented in this encounter Care Teams Development Director Relationship Specialty Start Date End Date Jerzy Vidal MD [address] [place] [address] [place] [address] PCP - [facility] Medicine 12/04/18 documented as of this encounter
--- OUTSIDE RECORDS SUMMARY | 2024-02-24 01:13 | XMS_ITS ---
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 Current Oncology Plans [facility] ONC SARCOMA (SOFT TISSUE) - PACLitaxeL WEEKLY* Plan Start Date: 02/24/2024 Plan Provider:Shon Schneider MD Linked Problems Thymic carcinoma Treatment Medications Current Day (Day 1 , Cycle 1 - Planned for 02/24/2024) Next Day (Day 8, Cycle 1 - Planned for 03/03/2024) PACLitaxeL (Taxol) ConcentratePACLitaxeL (Taxol) in Non-PVC sodium chloride 0.9% 250 mL infusion PACLitaxeL (Taxol) 186 mg in sodium chloride 0.9% Non-PVC 281 mL infusion PACLitaxeL (Taxol) 186 mg in sodium chloride 0.9% Non-PVC 281 mL infusion MEDIPORT ADMINISTRATION* Plan Start Date:12/19/2018 Plan Provider:Shon Schneider MD Linked Problems Thymic carcinoma Treatment Medications No medications scheduled. MAGNESIUM* Plan Start Date:10/27/2018 Plan Provider:Shon Schneider MD Linked Problems Thymic carcinoma Treatment Medications No medications scheduled. Past Plans ADULT TREATMENT Plan Name Start Date Discontinue Date Treatment Medications Discontinue Reason Plan Provider Cycles [facility] ONC NONSMALL CELL LUNG CANCER - PEMEtrexed 06/23/19 23 06/30/2023 PEMEtrexed (Alimta) in sodium chloride 0.9% 100 mL infusion Therapy Complete Shon Schneider MD 3 of 4 cycles started [facility] ONC GI BILIARY CANCER - GEMcitabine / CAPECITABINE 02/29/20 20 12/09/2020 GEMcitabine (Gemzar) in sodium chloride 0.9% 150 mL infusion Therapy Complete Shon Schneider MD 7 of 7 cycles started [facility] ONC HEAD AND NECK CANCER - PEMBROLIZUMAB 08/10/19 20 02/22/2020 pembrolizumab (Keytruda) in sodium chloride 0.9% 100 mL infusion Progression Shon Schneider MD 8 of 8 cycles started [facility] ONC NONSMALL CELL LUNG CANCER - PEMBROLIZUMAB 018 01/23/2019 pembrolizumab (Keytruda) in sodium chloride 0.9% 100 mL infusion Therapy Complete Shon Schneider MD Treatment not started [facility] ONC HEAD AND NECK CANCER - CARBOplatin / PACLitaxel 017 05/28/2018 CARBOplatin (Paraplatin) in 150 mL infusionPACLitaxeL (Taxol) in Non-PVC sodium chloride 0.9% 250 mL infusion Not Tolerated Jerrod White MD 16 of 16 cycles started Radiation Treatments * No radiation treatments are documented for this patient in [facility]. Treatments may have been administered in another system. Resolved Problems Problem Noted Date Diagnosed Date Resolved Date Congestive heart failure, un specified HF chronicity, unspecified heart failure type 11/23/2022 02/15/2024 Platelet disorder 10/22/2022 02/15/2024
--- OUTSIDE RECORDS SUMMARY | 2024-02-24 01:13 | XMS_ITS | Encounter Summary ---
Author Organization [facility] Address [facility] [place] [address] Care Team Providers Care Unit Coordinator Name Role Phone Jerzy Vidal MD Primary Care Provider [phone] Reason for Visit * Reason Comments Medication Refill Encounter Details Date Type Department Care Team (Late Contact Info) Description 06/14/2023 Refill Hematology [place] [address] Shon Schneider MD [facility] [place] [address] Hypothyroidism, unspecified type Social History Tobacco Use Types Packs/Day Years Used Date Smoking Tobacco: Never Smokeless Tobacco: Never Alcohol Use Standard Drinks/Week Comments Never 0 (1 standard drink = 0.6 oz pur e alcohol) [facility] Inpatient Questions Answer Date [...] AM EDT Office Visit Hematology/Oncology at [address] [phone] Shon Schneider MD [facility] [place] [address] HEMATOLOGY AND ONCOLOGY [place], [place] [address] [phone] 02/24/2024 9:30 AM EDT Infusion Hematology Oncology at [address] [phone] 03/02/2024 11:00 AM EDT Office Visit Hematology/Oncology at [address] [phone] Shon Schneider MD [facility] [place] [address] [address] HEMATOLOGY AND ONCOLOGY [place], [place] [address] 03/02/2024 12:30 PM EDT Infusion Hematology Oncology at [address] [phone] 03/09/2024 10:00 AM EDT Office Visit Hematology/Oncology at [address] [phone] Shon Schneider MD [facility] [place] [address] [address] HEMATOLOGY AND ONCOLOGY [place], [place] [id number] 03/09/2024 10:30 AM EDT Infusion Hematology Oncology at [address] [phone] documented as of this encounter Goals Goal Patient Goal Type Associated Problems Recent Progress Patient-Stated? Author DH Home Medication Compliance and Understanding Patient Facing Action Plan On track( 019 3:22 PM EST) No Ivana Vanegas, [facility] Note: Remain 95% or better adherent to chemotherapy without severe side effects as assessed by days supply and patient reported adverse events at each refill documented as of this encounter Visit Diagnoses Diagnosis Hypothyroidism, unspecified type Thymic carcinoma Malignant neoplasm of thymus documented in this encounter Care Teams Unit Coordinator Relationship Specialty Start Date End Date Jerzy Vidal MD [address] [place] [address] [place] [address] PCP - [facility] Medicine 12/04/18 documented as of this encounter
--- OUTSIDE RECORDS SUMMARY | 2024-02-24 01:13 | XMS_ITS | Encounter Summary ---
Author Organization [facility] Address [facility] [place] [address] Care Team Providers Care Collet Maker Name Role Phone Jerzy Vidal MD Primary Care Provider [phone] Encounter Details Date Type Department Care Team (Late st Contact Info) Description 05/23/2023 Telephone Hematology/Oncology at [address] [phone] Tracy Guevara, RN Social History Tobacco Use Types Packs/Day [...] encounter Miscellaneous Notes * Telephone Encounter - Tracy Guevara, RN - 05/23/2023 12:47 PM EST Spoke with Monica and let her know Dr. Schneider was not the prescriber for her diltiazem and she needed to reach out to cardiology or her PCP for a refill. Monica verbalized understanding and in agreement with plan. documented in this encounter Plan of Treatment Upcoming Encounters Date Type Department Care Team (Late st [facility] Info) Description 02/24/2024 9:00 AM EDT Office Visit Hematology/Oncology at [address] [phone] Shon Schneider MD [facility] [place] [address] HEMATOLOGY AND ONCOLOGY [place], [place] [id number] 02/24/2024 9:30 AM EDT Infusion Hematology Oncology at [address] [phone] 03/02/2024 11:00 AM EDT Office Visit Hematology/Oncology at [address] [phone] Shon Schneider MD [facility] [place] [address] [address] HEMATOLOGY AND ONCOLOGY [place], [place] [address] 03/02/2024 12:30 PM EDT Infusion Hematology Oncology at [address] [phone] 03/09/2024 10:00 AM EDT Office Visit Hematology/Oncology at [address] [phone] Shon Schneider MD [facility] [place] [address] [address] HEMATOLOGY AND ONCOLOGY [place], [place] [address] 03/09/2024 10:30 AM EDT Infusion Hematology Oncology at [address] [phone] documented as of this encounter Goals Goal Patient Goal Type Associated Problems Recent Progress Patient-Stated? Author DH Home Medication Compliance and Understanding Patient Facing Action Plan On track( 019 3:22 PM EST) No Ivana Vanegas, [facility] Note: Remain 95% or better adherent to chemotherapy without severe side effects as assessed by days supply and patient reported adverse events at each refill documented as of this encounter Visit Diagnoses Not on filedocumented in this encounter Care Teams Collet Maker Relationship Specialty Start Date End Date Jerzy Vidal MD [address] [place] [address] [place] [address] PCP - [facility] Medicine 12/04/18 documented as of this encounter
--- OUTSIDE RECORDS SUMMARY | 2024-02-24 01:13 | XMS_ITS | Encounter Summary ---
Author Organization [facility] Address [facility] [place] [address] Care Team Providers Care Sfdc Solution Architect Name Role Phone Jerzy Vidal MD Primary Care Provider [phone] Encounter Details Date Type Department Care Team (Latest Contact Info) Description 12/02/2023 Travel Social History Tobacco Use Types Packs/Day [...] 9:00 AM EDT Office Visit Hematology/Oncology at [address] [phone] Shon Schneider MD [facility] [place] [address] Ciara Pitts APRN [address] [place] [address] [place] [address] 02/24/2024 9:30 AM EDT Infusion Hematology Oncology at [address] [phone] 03/02/2024 11:00 AM EDT Office Visit Hematology/Oncology at [address] [phone] Shon Schneider MD [facility] [place] [address] HEMATOLOGY AND ONCOLOGY [place], [place] [address] 03/02/2024 12:30 PM EDT Infusion Hematology Oncology at [address] [phone] 03/09/2024 10:00 AM EDT Office Visit Hematology/Oncology at [address] [phone] Shon Schneider MD [facility] [place] [address] [address] [place] [address] 03/09/2024 10:30 AM EDT Infusion Hematology Oncology at [address] [phone] documented as of this encounter Goals Goal Patient Goal Type Associated Problems Recent Progress Patient-Stated? Author DH Home Medication Compliance and Understanding Patient Facing Action Plan On track( 019 3:22 PM EST) Ivana Ashraf, [facility] Note: Remain 95% or better adherent to chemotherapy without severe side effects as assessed by days supply and patient reported adverse events at each refill documented as of this encounter Visit Diagnoses Not on filedocumented in this encounter Care Teams Sfdc Solution Architect Relationship Specialty Start Date End Date Jerzy Vidal MD [address] [place] [address] [place] [address] PCP - [facility] Medicine 12/04/18 documented as of this encounter
--- OUTSIDE RECORDS SUMMARY | 2024-02-24 01:14 | XMS_ITS | Encounter Summary ---
Author [facility] [place] [address] Care Team Providers Care Repairer Welding Equipment Name Role Phone Jerzy Vidal MD Primary Care Provider [phone] Encounter Details Date Type Department Care Team (Late Contact Info) Description 02/24/2023 Ancillary Procedure [place] [address] Jerzy Vidal MD [address] [place] [id number] Social History Tobacco Use Types Packs/Day Years Used Date Smoking Tobacco: Never Smokeless Tobacco: Never Alcohol Use Standard Drinks/Week Comments Never 0 (1 standard drink = 0.6 oz pur e alcohol) [facility] Inpatient Questions Answer Date Recorded Does [...] 9:00 AM EDT Office Visit Hematology/Oncology at [address] [phone] Shon Schneider MD [facility] [place] [address] [address] [place] [address] 02/24/2024 9:30 AM EDT Infusion Hematology Oncology at [address] [phone] 03/02/2024 11:00 AM EDT Office Visit Hematology/Oncology at [address] [phone] Shon Schneider MD [facility] [place] [address] [address] HEMATOLOGY AND ONCOLOGY [place], [place] [address] 03/02/2024 12:30 PM EDT Infusion Hematology Oncology at [address] [phone] 03/09/2024 10:00 AM EDT Office Visit Hematology/Oncology at [address] [phone] Shon Schneider MD [facility] [place] [address] [address] HEMATOLOGY AND ONCOLOGY [place], [place] [address] 03/09/2024 10:30 AM EDT Infusion Hematology Oncology at [address] [phone] documented as of this encounter Goals Goal Patient Goal Type Associated Problems Recent Progress Patient-Stated? Author DH Home Medication Compliance and Understanding Patient Facing Action Plan On track( 019 3:22 PM EST) No Ivana Vanegas, [facility] Note: Remain 95% or better adherent to chemotherapy without severe side effects as assessed by days supply and patient reported adverse events at each refill documented as of this encounter Procedures Procedure Name Priority Date/Time Associated Diagnosis Comments FILM LIBRARY STORAGE ONLY CT CHEST ABDOMEN PELVIS Routine 02/24/2023 12:00 AM EDT documented in this encounter Results * Film Library- Storage Only CT Chest Abdomen Pelvis (02/24/2023 12:00 AM EDT) Narrative [facility] - 02/25/2023 11:32 AM EDT This exam is auto-finalizing. It's purpose is for storage only. Jerzy Vidal MD G FILM LIBRARY ORD ERABLES Performing Organization Address City/State/[facility] Co de Phone Number [place], [place] documented in this encounter Visit Diagnoses Not on filedocumented in this encounter Care Teams Repairer Welding Equipment Relationship Specialty Start Date End Date Jerzy Vidal MD [address] [place] [address] [place] [address] PCP - [facility] Medicine 12/04/18 documented as of this encounter
--- OUTSIDE RECORDS SUMMARY | 2024-02-24 01:14 | XMS_ITS | Encounter Summary ---
Author Organization [facility] [place] [address] Care Team Providers Care Assistant Buyer Name Role Phone Jerzy Vidal MD Primary Care Provider [phone] Encounter Details Date Type Department Care Team (Latest Contact Info) Description 03/25/2023 1:40 PM EDT Office Visit Cardiology at [address] [phone] Juan Miguel Castorena, EUGENIO [facility] [place] [address] Status post transcatheter aortic valve replacement (TAVR) using bioprosthesis (Primary Dx) Social History Tobacco Use Types Packs/Day Years Used Date Smoking Tobacco: Never Smokeless Tobacco: Never Alcohol Use Standard Drinks/Week Comments Never 0 (1 standard drink = 0.6 oz pur e alcohol) [facility] Inpatient Questions Answer Date Recorded Does Anyone [...] Sign Reading Time Taken Comments Blood Pressure 127/67 03/25/2023 1:30 PM EDT Pulse 96 03/25/2023 1:30 PM EDT Temperature - - Respiratory Rate - - Oxygen Saturation 100% 03/25/2023 1:30 PM EDT Inhaled Oxygen Concentration - - Weight 92.1 kg (203 lb) 03/25/2023 1:30 PM EDT Height 172.7 cm (5' 8) 03/25/2023 1:30 PM EDT Body Mass Index 30.87 03/25/2023 1:30 PM EDT documented in this encounter Progress Notes * Raffaele Juan Miguel S, MEDICAL SURGERY NURSE - 03/25/2023 1:40 PM EDT Images from the original note were not included. [facility] [place] [address] Structural Heart Follow Up Subjective: HPI:Monica Jaramillo is a 67 y.o. 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 She is now status post successful TAVR with [address] Sultana (01/19/2023). She returns for 30- day post TAVR follow-up visit. Her post TAVR Hospital course was notable for trivial pericardial effusion, which remained stable per chest radiograph. She was ultimately discharged with ASA 81 daily and Eliquis 5 twice daily. The patient notes feeling remarkably well, denying any anginal or heart failure symptoms. Overall, she feels improved since her TAVR with profound reduction in lower extremity edema. Her functional capacity allows her to now cook more and notes much improved quality of life. she denies intolerance to her antiplatelet regimen. she denies any chest pain, shortness of breath, palpitations, near-syncope, or syncopal events. Denies swelling in abdomen, dyspnea, orthopnea, PND. Echocardiogram 03/25/2023 Interpretation Summary -Left ventricular systolic function is normal. Left ventricular ejection fraction is estimated visually at 60%. There are no segmental wall motion abnormalities. -The right ventricle is of normal size. Right ventricular systolic function is normal. Right ventricular systolic pressure is 45 mmHg. -Tino valve in the aortic position is functioning normally, trace paravalvular regurgitation. -The ascending aorta is dilated. There is a 23 mm aortic prosthesis. The peak gradient across the prosthesis is 22.9 mmHg . The mean gradient across the prosthesis is 12.9 mmHg . There appears to be trace paravalvular regurgitation. There appears to be no intravalvular regurgitation. Pericardium/Pleural The pericardium appears normal. -In comparison to an immediate post implant study, RVSP is lower. 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 Medications: Current Outpatient Medications Medication Sig Note Dispense Refill potassium chloride ER (Klor-Con M) 20 mEq ER micro-encapsulated crystal tablet TAKE ONE TABLET BY MOUTH EVERY DAY 30 tablet 5 furosemide (Lasix) 40 mg tablet Take 1 tablet by mouth daily for 90 days. 30 tablet 2 aspirin 81 mg chewable tablet Take 81 mg by mouth daily for 180 days. 30 tablet 5 azithromycin (Zithromax) 500 mg tablet Take 1 tablet by mouth as needed (dental procedures). Take 1hour prior to dental procedures traMADoL (Ultram) 50 mg tablet Take 50 mg by mouth every 8 hours as needed. dilTIAZem CD (Cardizem CD) 180 mg CD (ER) 24 hr casule Take 1 capsule by mouth daily. 45 capsule 3 aMILoride (Midamor) 5 mg tablet TAKE ONE TABLET BY MOUTH EVERY DAY 30 tablet 3 levothyroxine (Synthroid) 150 mcg tablet TAKE ONE TABLET BY MOUTH EVERY DAY 30 tablet 5 folic acid (Folvite) 1 mg Tablet Take 1 mg by mouth daily. magnesium oxide (Mag-Ox) 400 mg (241.3 mg magnesium) Tablet TAKE ONE TABLET BY MOUTH THREE TIMES A DAY 90 tablet 5 PARoxetine (Paxil) 20 mg Tablet Take 1 tablet by mouth every morning. 90 tablet 3 acetaminophen (TYLENOL) 500 mg Tablet Take 1,000 mg by mouth every 6 hours as needed for Pain. ascorbic acid, vitamin C, (VITAMIN C) 500 mg Tablet, Chewable Take 1 tablet by mouth daily. apixaban (Eliquis) 5 mg Tablet Take 5 mg by mouth 2 times daily. multivitamin (THERAGRAN) Tablet Take 1 tablet by mouth daily. lidocaine (Lidoderm) 5% Adhesive Patch, Medicated Apply 1 patch onto the skin daily. (leave on for 12 hours and remove for 12 hours) (Patient not taking: Reported on 03/25/2023) 30 patch 3 triamcinolone (Kenalog) 0.1 % Cream Apply topically 2 times daily. (Patient not taking: Reported on03/25/2023) 30 g 0 ondansetron (Zofran) 8 mg Tablet Take 1 tablet by mouth every 8 hours as needed for Nausea. (Patient not taking: Reported on 03/25/2023) 01/29/2022: Has not needed 20 tablet 3 Objective: Vitals: Vitals: 03/25/23 1330 BP: 127/67 BP Location (NBP): Right arm Patient Position: Sitting Pulse: 96 SpO2: 100% Weight: 92.1 kg (203 lb) Height: 172.7 cm (5' 8) Physical Exam: General: Pleasant female, no acute distress HEENT: Normocephalic, atraumatic, benign NECK: Supple, no masses, FROM CV: Normal rate, irregular rhythm, no m/r/g, no ventricular heaves RESP: CTAB, moving air well, symmetric chest excursion GI: Soft, nd, nttp EXT: No cyanosis/clubbing, no edema, preserved distal pulses NEURO: No gross focal deficits, normal gait PSYC: Appropriate mood and affect, alert and oriented DERM: No rash, wwp Diagnostics: Recent Results (from the past 72 hour(s)) Comprehensive metabolic panel (non-fasting) Result Value Glucose Lvl 103 BUN 25 (H) Creatinine 0.87 Sodium 142 Potassium 4.2 Chloride 100 CO2 32 (H) Anion Gap 10 Calcium 10.3 Total Protein 8.1 (H) Albumin 4.2 AST 15 ALT 8 Alk Phos 65 Total Bilirubin 0.6 Estimated GFR 74 Hemogram Result Value WBC 5.1 RBC 3.34 (L) Hemoglobin 10.9 (L) Hematocrit 34.0 (L) MCV 101.8 (H) MCH 32.6 (H) MCHC 32.1 Platelets 124 (L) RDWSD 51.4 (H) RDWCV 13.8 MPV 9.9 nRBC % Auto 0.0 nRBC Abs Auto 0.000 Differential, Automated Result Value Neutrophils % 69.7 Neutr Abs (ANC) 3.57 Lymphocytes % 12.5 Lymphocytes Abs 0.6 (L) Monocytes % 10.7 Monocyte Abs 0.6 Eosinophils % 6.1 Eosinophils Abs 0.3 Basophils % 0.6 Basophils Abs 0.0 Immature Gran % 0.40 Idalia Gran Abs 0.02 Assessment and Plan: Monica Jaramillo is a 67 y.o. 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 She is now status post successful TAVR with [address] Sultana (01/19/2023). She returns for 30-day post TAVR follow-up visit. She continues tolerating aspirin 81 mg and Eliquis 5 twice daily. It is reassuring that she denies heart failure or anginal symptoms, with overall improvement in functional capacity status post TAVR.Considering her mean gradient of her aortic valve is13 mmHg with preserved LV function, along with no evolution in pericardial effusion , we will plan to continue aspirin 81 mg and Eliquis 5 twice daily. Plan to follow-up in 12 months with echo. NYHA FC II - slight limitation of activity. CCS 0 Follow up: 12 months with echo Juan Miguel Castorena APRN Structural Heart Disease Pager [phone] Thank you for the opportunity to participate in this patient's cardiovascular care. 30 minutes were spent on this patient encounter. We spent more than 50% of the time in counseling about the patient's condition and addressing questions regarding natural course history and treatmentoptions. documented in this encounter Plan of Treatment Upcoming Encounters Date Type Department Care Team (Late st Contact Info) Description 02/24/2024 9:00 AM EDT Office Visit Hematology/Oncology at [address] [phone] Shon Schneider MD [facility] [place] [address] HEMATOLOGY AND ONCOLOGY [place], [place] [address] [phone] 02/24/2024 9:30 AM EDT Infusion Hematology Oncology at [address] [phone] 03/02/2024 11:00 AM EDT Office Visit Hematology/Oncology at [address] [phone] 31 Shon Schneider MD [facility] [place] [address] [address] HEMATOLOGY AND ONCOLOGY [place], [place] [id number] 03/02/2024 12:30 PM EDT Infusion Hematology Oncology at [address] [phone] 03/09/2024 10:00 AM EDT Office Visit Hematology/Oncology at [address] [phone] Shon Schneider MD [facility] [place] [address] [address] HEMATOLOGY AND ONCOLOGY [place], [place] [address] 03/09/2024 10:30 AM EDT Infusion Hematology Oncology at [address] [phone] documented as of this encounter Goals Goal Patient Goal Type Associated Problems Recent Progress Patient-Stated? Author DH Home Medication Compliance and Understanding Patient Facing Action Plan On track( 019 3:22 PM EST) Ivana Ashraf, [facility] Note: Remain 95% or better adherent to chemotherapy without severe side effects as assessed by days supply and patient reported adverse events at each refill documented as of this encounter Visit Diagnoses Diagnosis Status post transcatheter aortic valve replacement (TAVR) using bioprosthesis- Primary Thymic carcinoma Malignant neoplasm of thymus documented in this encounter Care Teams Assistant Buyer Relationship Specialty Start Date End Date Jerzy Vidal MD [address] [place] [address] [place] [address] PCP - [facility] Medicine 12/04/18 documented as of this encounter
--- OUTSIDE RECORDS SUMMARY | 2024-02-24 01:14 | XMS_ITS | Encounter Summary ---
Author Organization [facility] [place] [address] Care Team Providers Care Youth Leader Name Role Phone Jerzy Vidal MD Primary Care Provider [phone] Encounter Details Date Type Department Care Team (Late st Contact Info) Description 01/27/2023 Telephone Cardiology at [address] [phone] Evelina Neri Social History Tobacco Use Types Packs/Day Years Used Date Smoking Tobacco: Never Smokeless Tobacco: Never Alcohol Use Standard Drinks/Week Comments Never 0 (1 standard drink = 0.6 oz pur e alcohol) [facility] Inpatient Questions Answer Date Recorded Does [...] encounter Miscellaneous Notes * Telephone Encounter - Evelina Neri - 01/27/2023 1:19 PM EDT Left message to schedule a new patient appointment with Dr. Osei either the week of 02/07/23 or later. Patient had a TAVR on 01/19/23 and should would like to see her 2-3 weeks after that date. documented in this encounter Plan of Treatment Upcoming Encounters Date Type Department Care Team (Late st Contact Info) Description 02/24/2024 9:00 AM EDT Office Visit Hematology/Oncology at [address] [phone] Shon Schneider MD [facility] [place] [address] [address] HEMATOLOGY AND ONCOLOGY [place], [place] [address] 02/24/2024 9:30 AM EDT Infusion Hematology Oncology at [address] [phone] 03/02/2024 11:00 AM EDT Office Visit Hematology/Oncology at [address] [phone] Shon Schneider MD [facility] [place] [address] [address] HEMATOLOGY AND ONCOLOGY [place], [place] [address] 03/02/2024 12:30 PM EDT Infusion Hematology Oncology at [address] [phone] 03/09/2024 10:00 AM EDT Office Visit Hematology/Oncology at [address] [phone] Shon Schneider MD [facility] [place] [address] [address] HEMATOLOGY AND ONCOLOGY [place], [place] [id number] 03/09/2024 10:30 AM EDT Infusion Hematology Oncology at [address] [phone] documented as of this encounter Goals Goal Patient Goal Type Associated Problems Recent Progress Patient-Stated? Author DH Home Medication Compliance and Understanding Patient Facing Action Plan On track( 019 3:22 PM EST) No Ivana Vanegas, [facility] Note: Remain 95% or better adherent to chemotherapy without severe side effects as assessed by days supply and patient reported adverse events at each refill documented as of this encounter Visit Diagnoses Not on filedocumented in this encounter Care Teams Youth Leader Relationship Specialty Start Date End Date Jerzy Vidal MD [address] [place] [address] [place] [address] PCP - [facility] Medicine 12/04/18 documented as of this encounter
--- OUTSIDE RECORDS SUMMARY | 2024-02-24 01:14 | XMS_ITS | Encounter Summary ---
Author Organization [facility] Address [facility] [place] [address] Care Team Providers Care Rasper Machine Operator Name Role Phone Jerzy Vidal MD Primary Care Provider [phone] Encounter Details Date Type Department Care Team (Late Contact Info) Description 03/25/2023 1:00 PM EDT Office Visit Cardiology at [address] [phone] S/P TAVR (transcatheter aortic valve replacement) Social History Tobacco Use Types Packs/Day Years Used Date Smoking Tobacco: Never Smokeless Tobacco: Never Alcohol Use Standard Drinks/Week Comments Never 0 (1 standard drink = 0.6 oz pur e alcohol) [facility] Inpatient Questions Answer Date Recorded Does Anyone [...] AM EDT Office Visit Hematology/Oncology at [address] [phone] Shon Schneider MD [facility] [place] [address] [address] HEMATOLOGY AND ONCOLOGY [place], [place] [address] [phone] 02/24/2024 9:30 AM EDT Infusion Hematology Oncology at [address] [phone] 03/02/2024 11:00 AM EDT Office Visit Hematology/Oncology at [address] [phone] Shon Schneider MD [facility] [place] [address] [address] HEMATOLOGY AND ONCOLOGY [place], [place] [phone] 03/02/2024 12:30 PM EDT Infusion Hematology Oncology at [address] [phone] 03/09/2024 10:00 AM EDT Office Visit Hematology/Oncology at [address] [phone] Shon Schneider MD [facility] [place] [address] [address] HEMATOLOGY AND ONCOLOGY [place], [place] [address] 03/09/2024 10:30 AM EDT Infusion Hematology Oncology at [address] [phone] documented as of this encounter Goals Goal Patient Goal Type Associated Problems Recent Progress Patient-Stated? Author DH Home Medication Compliance and Understanding Patient Facing Action Plan On track( 019 3:22 PM EST) Ivana Ashraf, [facility] Note: Remain 95% or better adherent to chemotherapy without severe side effects as assessed by days supply and patient reported adverse events at each refill documented as of this encounter Procedures Procedure Name Priority Date/Time Associated Diagnosis Comments EKG 12-LEAD Routine 03/25/2023 1:42 PM EDT S/P TAVR (transcatheter aortic valve replacement) documented in this encounter Results * EKG 12 Lead (03/25/2023 1:42 PM EDT) Ventricular rate 83 BPM MUSE SYSTEM QRS Duration 72 ms MUSE SYSTEM Q-T Interval 384 ms MUSE SYSTEM QTC Calculated (Bezet) 451 ms MUSE SYSTEM Calculated R Warners 97 degrees MUSE SYSTEM Calculated T Warners 12 degrees MUSE SYSTEM INTERPRETATION Atrial fibrillation Rightward axis Low voltage QRS Abnormal ECG When compared with ECG of 20-JAN-2023 06:33, No significant change was found Confirmed by MD Pernell, Kyaw Bourgeois ([id number]) on 03/25/2023 3:05:23 PM MUSE SYSTEM 03/25/2023 1:42 PM EDT 03/25/2023 3:05 PM EDT Roddy Sultana MD ECG ORDERABLES MUSE SYSTEM documented in this encounter Visit Diagnoses Diagnosis S/P TAVR (transcatheter aortic valve replacement) Thymic carcinoma Malignant neoplasm of thymus documented in this encounter Care Teams Rasper Machine Operator Relationship Specialty Start Date End Date Jerzy Vidal MD [address] [place] [address] [place] [address] PCP - [facility] Medicine 12/04/18 documented as of this encounter
--- OUTSIDE RECORDS SUMMARY | 2024-02-24 01:14 | XMS_ITS | Encounter Summary ---
Author Organization Formerly [facility] [place] [address] Care Team Providers Care Prestressed Concrete Laborer Name Role Phone Jerzy Vidal MD Primary Care Provider Encounter Details Date Type Department Care Team (Latest Contact Info) Description 03/25/2023 10:45 AM EDT Laboratory Appointment Lab [address] [place] [phone] S/P TAVR (transcatheter aortic valve replacement) Social [...] 9:00 AM EDT Office Visit Hematology/Oncology at [address] [phone] Shon Schneider MD [facility] [place] [address] [address] HEMATOLOGY AND ONCOLOGY [place], [place] [id number] 02/24/2024 9:30 AM EDT Infusion Hematology Oncology at [address] [phone] 03/02/2024 11:00 AM EDT Office Visit Hematology/Oncology at [address] [phone] Shon Schneider MD [facility] [place] [address] [address] HEMATOLOGY AND ONCOLOGY [place], [place] [id number] 03/02/2024 12:30 PM EDT Infusion Hematology Oncology at [address] [phone] 03/09/2024 10:00 AM EDT Office Visit Hematology/Oncology at [address] [phone] Shon Schneider MD [facility] [place] [address] [address] HEMATOLOGY AND ONCOLOGY [place], [place] [address] 03/09/2024 10:30 AM EDT Infusion Hematology Oncology at [address] [phone] documented as of this encounter Goals Goal Patient Goal Type Associated Problems Recent Progress Patient-Stated? Author DH Home Medication Compliance and Understanding Patient Facing Action Plan On track( 019 3:22 PM EST) Ivana Ashraf, [facility] Note: Remain 95% or better adherent to chemotherapy without severe side effects as assessed by days supply and patient reported adverse events at each refill documented as of this encounter Procedures Procedure Name Priority Date/Time Associated Diagnosis Comments HEMOGRAM Routine 03/25/2023 11:01 AM EDT S/P TAVR (transcatheter aortic valve replacement) DIFFERENTIAL, AUTOMATED Routine 03/25/2023 11:01 AM EDT S/P TAVR (transcatheter aortic valve replacement) CBC (WITH DIFF) Routine 03/25/2023 11:01 AM EDT S/P TAVR (transcatheter aortic valve replacement) COMPREHENSIVE METABOLIC PANEL Routine 03/25/2023 11:01 AM EDT S/P TAVR (transcatheter aortic valve replacement) documented in this encounter Results * (ABNORMAL) Differential, Automated (03/25/2023 11:01 AM EDT) Neutrophil % 69.7 % [facility] Neutrophil Absolute 3.57 1.70 - 6.10 x10(3)/mc L [facility] Lymph % 12.5 % [facility] Lymphocytes Abs 0.6(L) 0.9 - 3.2 x10(3)/mc L [facility] Monocyte % 10.7 % [facility] Monocyte Abs 0.6 0.3 - 0.9 x10(3)/mc L [facility] Eos % 6.1 % [facility] Eosinophils Abs 0.3 0.0 - 0.4 x10(3)/mc L [facility] Basophil % 0.6 % [facility] Baso Absolute 0.0 0.0 - 0.1 x10(3)/mc L [facility] Immature Gran % 0.40 % [facility] Comment: Immature granulocytes(IG's)percentage and absolute count will include metamyelocytes, myelocytes, and promyelocytes. Blood smears from CBCs yielding IG's will be scanned manually for concordance. If this scan disagrees with the automated IG or if promyelocytes are noted, a manual differential will be performed. Immature Gran Absolute 0.02 0.00 - 0.04 x10(3)/mc L [facility] Blood 03/25/2023 11:0 1 AM EDT 03/25/2023 11:15 AM EDT Narrative Resulting Agency Comment Spec In Lab Tricia HARRIS HEMATOLOGY ORDERABLE S [facility] [place] [address] * (ABNORMAL) Hemogram (03/25/2023 11:01 AM EDT) White Blood Cell 5.1 4.0 - 9.5 x10(3)/mc L [facility] Red Blood Cell 3.34(L) 4.00 - 5.21 x10(6)/mc L [facility] Hemoglobin 10.9(L) 11.7 - 15.5 g/dL [facility] Hematocrit 34.0(L) 35.7 - 45.8 % [facility] Mean Cell Volume 101.8(H) 82.6 - 94.4 fL [facility] Mean Cell Hemoglobin 32.6(H) 27.1 - 32.0 pg [facility] Mean Cell Hemoglobin Concentration 32.1 31.7 - 35.0 g/dL [facility] Platelet 124(L) 145 - 357 x10(3)/mc L [facility] RDW Standard Deviation 51.4(H) 37.0 - 46.0 fL [facility] RDW coefficient of variation 13.8 11.5 - 14.1 % [facility] Mean Platelet Volume 9.9 7.6 - 12.9 fL [facility] NRBC% auto 0.0 % [facility] NRBC Absolute 0.000 0.000 - 0.000 x10(3)/mc L [facility] Blood 03/25/2023 11:0 1 AM EDT 03/25/2023 11:15 AM EDT Narrative Resulting Agency Comment Spec In Lab Tricia HARRIS HEMATOLOGY ORDERABLE S [facility] [place] [address] * (ABNORMAL) Comprehensive metabolic panel (non-fasting) (03/25/2023 11:01 AM EDT) Glucose 103 65 - 199 mg/dL [facility] Comment:Diabetes: >=200 mg/d L plus symptoms Blood Urea Nitrogen 25(H) 8 - 18 mg/dL [facility] Creatinine 0.87 0.70 - 1.20 mg/dL [facility] Sodium 142 135 - 145 mmol/L [facility] Potassium 4.2 3.5 - 5.0 mmol/L [facility] Comment: Please note: ??Patients with WBC >100,000 may have falsely elevated Potassium levels. ??For accurate Potassium quantification in these patients send serum separator tube (gold top) for subsequent determinations. ??Contact the Clinical Chemistry Laboratory if there are any questions. Chloride 100 98 - 107 mmol/L [facility] Carbon Dioxide 32(H) 22 - 31 mmol/L [facility] Anion Gap 10 5 - 15 mmol/L [facility] Calcium 10.3 8.5 - 10.5 mg/dL [facility] Protein, Total 8.1(H) 6.1 - 8.0 g/dL [facility] Albumin 4.2 3.2 - 5.2 g/dL [facility] Aspartate Aminotransferase 15 0 - 30 unit/L [facility] Alanine Aminotransferase 8 0 - 30 unit/L [facility] Alkaline Phosphatase 65 35 - 105 unit/L [facility] Bilirubin, Total 0.6 0.2 - 1.3 mg/dL [facility] Est Glomerular Filtration Rate 74 >=60 mL/min/1. 73 m?? [facility] Comment: This patient's estimated GFR [...] In Lab Roddy Sultana MD CHEMISTRY ORDERABLES [facility] [place] [address] documented in this encounter Visit Diagnoses Diagnosis S/P TAVR (transcatheter aortic valve replacement) Thymic carcinoma Malignant neoplasm of thymus documented in this encounter Care Teams Prestressed Concrete Laborer Relationship Specialty Start Date End Date Jerzy Vidal MD [address] [place] [address] [place] [address] PCP - [facility] Medicine 12/04/18 documented as of this encounter
--- OUTSIDE RECORDS SUMMARY | 2024-02-24 01:14 | XMS_ITS | Encounter Summary ---
Author Organization [facility] Address [facility] [place] [address] Care Team Providers Care Sewer Tapper Name Role Phone Jerzy Vidal MD Primary Care Provider Encounter Details Date Type Department Care Team (Latest Contact Info) Description 03/25/2023 Travel Social History Tobacco Use Types Packs/Day [...] 9:00 AM EDT Office Visit Hematology/Oncology at [address] [phone] Shon Schneider MD [facility] [place] [address] Ciara Pitts APRN [address] [place] [address] [place] [address] 02/24/2024 9:30 AM EDT Infusion Hematology Oncology at [address] [phone] 03/02/2024 11:00 AM EDT Office Visit Hematology/Oncology at [address] [phone] Shon Schneider MD [facility] [place] [address] HEMATOLOGY AND ONCOLOGY [place], [place] [address] 03/02/2024 12:30 PM EDT Infusion Hematology Oncology at [address] [phone] 03/09/2024 10:00 AM EDT Office Visit Hematology/Oncology at [address] [phone] Shon Schneider MD [facility] [place] [address] [address] [place] [address] 03/09/2024 10:30 AM EDT Infusion Hematology Oncology at [address] [phone] documented as of this encounter Goals Goal Patient Goal Type Associated Problems Recent Progress Patient-Stated? Author DH Home Medication Compliance and Understanding Patient Facing Action Plan On track( 019 3:22 PM EST) Ivana Ashraf, [facility] Note: Remain 95% or better adherent to chemotherapy without severe side effects as assessed by days supply and patient reported adverse events at each refill documented as of this encounter Visit Diagnoses Not on filedocumented in this encounter Care Teams Sewer Tapper Relationship Specialty Start Date End Date Jerzy Vidal MD [address] [place] [address] [place] [address] PCP - [facility] Medicine 12/04/18 documented as of this encounter
--- OUTSIDE RECORDS SUMMARY | 2024-02-24 01:14 | XMS_ITS | Encounter Summary ---
Author Organization [facility] Address [facility] [place] [address] Care Team Providers Care Energy Project Engineer Name Role Phone Jerzy Vidal MD Primary Care Provider [phone] Reason for Visit * Reason Comments Medication Refill Encounter Details Date Type Department Care Team (Late Contact Info) Description 04/13/2023 Refill [place]ematology [place] [phone] Shon Schneider MD [facility] [place] [address] Thymic carcinoma; Hypomagnesemia Social History Tobacco Use Types Packs/Day Years Used Date Smoking Tobacco: Never Smokeless Tobacco: Never Alcohol Use Standard Drinks/Week Comments Never 0 (1 standard drink = 0.6 oz pur e alcohol) [facility] Inpatient Questions Answer Date Recorded [...] 9:00 AM EDT Office Visit Hematology/Oncology at [address] [phone] Shon Schneider MD [facility] [place] [address] [address] HEMATOLOGY AND ONCOLOGY [place], [place] [address] [phone] 02/24/2024 9:30 AM EDT Infusion Hematology Oncology at [address] [phone] 03/02/2024 11:00 AM EDT Office Visit Hematology/Oncology at [address] [phone] Shon Schneider MD [facility] [place] [address] [address] HEMATOLOGY [place] [address] 03/02/2024 12:30 PM EDT Infusion Hematology Oncology at [address] [phone] 03/09/2024 10:00 AM EDT Office Visit Hematology/Oncology at [address] [phone] Shon Schneider MD [facility] [place] [address] [address] HEMATOLOGY AND ONCOLOGY [place], [place] [phone] 03/09/2024 10:30 AM EDT Infusion Hematology Oncology at [address] [phone] documented as of this encounter Goals Goal Patient Goal Type Associated Problems Recent Progress Patient-Stated? 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
--- OUTSIDE RECORDS SUMMARY | 2024-02-24 01:14 | XMS_ITS | Encounter Summary ---
Author Organization [facility] [place] [address] Care Team Providers Care Supercalender Operator Helper Name Role Phone Jerzy Vidal MD Primary Care Provider [phone] Reason for Visit * Auth/Cert (Routine) Specialty Diagnoses / Procedures Referred By Franklyn t Referred To Contact Diagnoses Nonrheumatic aortic (valve) stenosis Severe aortic stenosis [I35.0] Procedures PRG COMBINED RIGHT & LEFT HEART CATH W/INJ L VENTRICULOGRAPHY, IMG S&I PRO REPLACE AORTIC VALVE (TAVR/HAMILTON)PERC FEMORAL ARTERY APPROACH CARDIAC CATHETERIZATION COMBINED RIGHT & LEFT HEART CATH,INC INJ FOR L VENTRICULOGRAPHY (WRVU 5.99) @TRANSCATHETER AORTIC VALVE REPLACEMENT (TAVR), PERCUTANEOUS FEMORAL (WRVU 22.47) TRANSESOPHAGEAL ECHO DURING CATH/EP PROCEDURE Edvin Sultana MD [facility] [place] [address] [place] [address] [facility] Referral ID Status Reason Start Date Expiration Date Visits Re quested Visits Authorized [id number] 1 1 Encounter Details Date Type Department Care Team (Late st Contact Info) Description 01/19/2023 10:30 AM EDT - 01/19/2023 12:00 PM EDT Surgery Public Health Clinical Nurse Specialist [facility] [place] [address] Edvin Sultana MD [facility] [place] [address] [place] [address] CARDIAC CATHETERIZATION Social History Tobacco Use Types Packs/Day Years [...] Sign Reading Time Taken Comments Blood Pressure 125/67 01/19/2023 10:57 AM EDT Right Arm - 124/77 Pulse 72 01/19/2023 10:57 AM EDT Temperature 36.8 ??C (98.2 ??F) 01/19/2023 1 0:57 AM EDT Respiratory Rate 17 01/19/2023 10:5 7 AM EDT Oxygen Saturation 93% 01/19/2023 10: 57 AM EDT Inhaled Oxygen Concentration - - Weight 92.8 kg (204 lb 8 oz) 01/19/2023 10:57 AM EDT Height 175.3 cm (5' 9.02) 01/19/2023 1 0:57 AM EDT Body Mass Index 29.91 01/19/2023 10:57 AM EDT documented in this encounter Discharge Summaries * Tricia Hackett PA - 01/20/2023 11:38 AM EDT Inpatient - Discharge Summary Patient Name: Monica Jaramillo Patient Age: 67 y.o. Birthdate: 1955 Language: Hong Konger Race: White Ethnicity: Not nor Admit Date: 01/19/2023 Discharge Date: 01/20/2023 Attending Physician: Edvin Sultana MD Follow-up Recommendations for Providers: Please continue routine management of cardiovascular risk factors including blood pressure, lipids,glucose, etc. Please note any medication changes. Our office will schedule a follow-up appointment with your PCP, Jerzy Vidal MD, or Primary Technical Services Analyst in ~ 7-10 days. Our office will schedule a follow-up appointment with your Aprn, Dr. Florian in 4 weeks with CXR, EKG, Echo, CBC, and CMP. Jfvp-Ucutfr-ii interval: After initial 30 day follow-up appointment , all TAVR patients will follow-up again in one year with an echo. Inpatient Provider Contact Information: [facility] Section of Cardiac Surgery [facility] [place] [address] FAX [phone] Discharge Diagnoses (Hospital Problems) Primary Diagnoses: Aortic stenosis, s/p TF TAVR Secondary Diagnoses: Active Hospital Problems Diagnosis Aortic stenosis Resolved Hospital Problems No resolved problems to display. Other Diagnoses (Chronic Problems): Active Non-Hospital Problems Diagnosis Congestive heart failure, unspecified HF chronicity, unspecified heart failure type Platelet disorder Abnormal uterine bleeding Pancytopenia Atrial fibrillation Essential hypertension Hypothyroidism Thymic carcinoma Discharged to: Patient discharged to home Functional and Cognitive Status: Baseline Discharge Conditions/Prognosis: Improved Past Medical History: Diagnosis Date Atrial fibrillation HTN (hypertension) Obesity Thymic cancer 04/2017 Thymic carcinoma 05/26/2017 Ventral hernia Past Surgical History: Procedure Laterality Date APPENDECTOMY 2002 BREAST BIOPSY SECTION HERNIA REPAIR 2005 IR THORACENTESIS RIGHT 10/28/2022 IR Thoracentesis Right 10/28/2022 John Durand MD [facility] IR THORACENTESIS RIGHT 11/02/2022 IR Thoracentesis Right 11/02/2022 Laxmi Felix PA [facility] INTER[facility] RAD SOFT TISSUE BIOPSY 03/22/2017 THORACENTESIS Prior To Admission Medications Medications Prior to Admission Medication Sig Dispense Refill Last Dose lidocaine (Lidoderm) 5% Adhesive Patch, Medicated Apply 1 patch onto the skin daily. (leave on for 12 hours and remove for 12 hours) (Patient taking differently: daily as needed. Apply 1 patch onto the skin daily. (leave on for 12 hours and remove for 12 hours)) 30 patch 3 Past Month dilTIAZem CD (Cardizem CD) 180 mg CD (ER) 24 hr casule Take 1 capsule by mouth daily. 45 capsule 3 01/19/2023 [DISCONTINUED] furosemide (Lasix) 80 mg tablet Take 1 tablet by mouth daily. 60 tablet 3 01/18/2023 aMILoride (Midamor) 5 mg tablet TAKE ONE TABLET BY MOUTH EVERY DAY 30 tablet 3 01/19/2023 levothyroxine (Synthroid) 150 mcg tablet TAKE ONE TABLET BY MOUTH EVERY DAY 30 tablet 5 01/19/2023 folic acid (Folvite) 1 mg Tablet Take 1 mg by mouth daily. 01/18/2023 magnesium oxide (Mag-Ox) 400 mg (241.3 mg magnesium) Tablet TAKE ONE TABLET BY MOUTH THREE TIMES A DAY 90 tablet 5 01/18/2023 PARoxetine (Paxil) 20 mg Tablet Take 1 tablet by mouth every morning. 90 tablet 3 01/19/2023 potassium chloride ER (K-Dur/Klor-Con) 20 mEq Tab Sust.Rel. Particle/Crystal Take 1 tablet by mouthdaily. 30 tablet 5 01/18/2023 ascorbic acid, vitamin C, (VITAMIN C) 500 mg Tablet, Chewable Take 1 tablet by mouth daily. 01/18/2023 apixaban (Eliquis) 5 mg Tablet Take 5 mg by mouth 2 times daily. Past Week multivitamin (THERAGRAN) Tablet Take 1 tablet by mouth daily. 01/18/2023 cannabidioL (Epidiolex) 100 mg/mL Solution Take by mouth daily as needed. capsules Unknown traMADoL (Ultram) 50 mg tablet Take 50 mg by mouth every 8 hours as needed. Unknown triamcinolone (Kenalog) 0.1 % Cream Apply topically 2 times daily. (Patient taking differently: Apply topically 2 times daily as needed.) 30 g 0 Unknown ondansetron (Zofran) 8 mg Tablet Take 1 tablet by mouth every 8 hours as needed for Nausea. 20 tablet 3 Unknown acetaminophen (TYLENOL) 500 mg Tablet Take 1,000 mg by mouth every 6 hours as needed for Pain. Unknown Updated Allergies/ADRs: Allergies Allergen Reactions Kiwi (Actinidia Chinensis) Itching and Other (See Comments) Mouth swelling Carboplatin Penicillins Hives Pollen Extracts Other (See Comments) rhinorrhea History of Presentation: Monica Jaramillo is a 67 y.o. female referred for cardiac catheterization for evaluation of cardiac hemodynamics, aortic valve anatomy and function, and implantation of bioprosthetic transcatheter aortic valve (aka TAVR). Past medical history significant for Monica Jaramillo is a 67 y.o. 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 She presents to clinic in follow up for outpatient TAVR evaluation following initial SHD consultation during recent hospitalization. CT Scan for TAVR planning demonstrates: low left coronary height, adequate iliofemoral sites There have not been any changes in health status since last seen in clinic. No fevers, no chills, no bleeding. Please see recent outpatient clinic note for comprehensive physical and history documentation. Major Procedures/Operations: 01/19/2023 TF TAVR Hospital Course: Severe s/p TF TAVR Monica Jaramillo was admitted to [facility] on 01/19/2023 via the Same Day Program. She was brought to the forestry farm laborer 01/19/[address] Marivel Cooper and Edvin Sultana and their teams performed a transfemoral TAVR. She tolerated the procedure and was brought to the CardiacCath Recovery Unit and then to the Step Down Unit. Routine postoperative medications were started. She was started on ASA 81mg in addition to her homeEliquis as antiplatelet medication for her TAVR valve in the setting of chronic AF. EKG postop was rate controlled AF with LAFB. Fascicular block was resolved by the following morning, no bradycardia. She was resumed on her home diltiazem. Patient had a known right pleural effusion and a history of several thoracentesis procedures, the most recent back in October. CXR was repeated postop showing small-moderate right effusion. She was giventhe option to have a repeat thoracentesis during this admission to which she preferred to follow upwith her home provider, Dr. Schneider, for treatment instead. She has an appointment scheduled for next week. She was resumed on half her home dose lasix and amiloride for diuresis. Supplemental O2 was weaned off and she was maintaining O2 sats 91-98%. She will follow up with her Oncologist next week for further management of thymic cancer. The remainder of the her hospital course was uneventful and by postoperative day #1 she had met allcriteria for discharge. She is discharged home with her family. Anticoagulation Plan: ASA 81mg daily, Eliquis 5mg bid Vital Signs at Discharge: Last set of vitals: BP 133/73 (BP Location (NBP): Left arm, Patient Position: Lying) Pulse 63 Temp 36.6 ??C (97.9 ??F) (Oral) Resp 16 Ht 175.3 cm (5' 9.02) Wt 91.9 kg (202 lb 9.6 oz) SpO2 97% BMI 29.91 kg/m?? Patient Vitals for the past 168 hrs: Weight 01/20/23 0534 91.9 kg (202 lb 9.6 oz) 01/19/23 1057 92.8 kg (204 lb 8 oz) Pertinent physical exam findings prior to discharge: General: no acute distress, OOB to chair Neuro: A&Ox4, no focal deficits Pulm: non-labored, diminished bases Cardiac: regular rate and irregular rhythm, without murmur/gallop/rub Vascular: warm, 1+ LE edema, dependent rubor, palpable DP pulses bilaterally Abd: non-tender, non-distended, active bowel sounds Integ: groin sites clean, dry without hematoma Important Studies and Lab Data: Lab Results Component Value Date WBC 5.8 01/20/2023 RBC 2.79 (L) 01/20/2023 HGB 9.4 (L) 01/20/2023 HCT 30.4 (L) 01/20/2023 PLATELET 134 (L) 01/20/2023 No results for input(s): INR in the last 168 hours. Lab Results Component Value Date NA 133 (L) 01/20/2023 K 4.5 01/20/2023 CL 99 01/20/2023 CO2 28 01/20/2023 BUN 15 01/20/2023 CREATININE 0.93 01/20/2023 Pending Studies and Lab Data: None Immunizations Given this Hospitalization: There is no immunization history for the selected administration types on file for this patient. Smoking Status at Discharge: Social History Tobacco Use Smoking Status Never Smokeless Tobacco Never Discharge Medications: Your Medications New Medications Dose Details aspirin 81 mg chewable tablet Take 81 mg by mouth daily for 180 days. Start taking on: January 21, 2023 81 mg Quantity: 30 tablet Refills: 5 azithromycin 500 mg tablet Commonly known as: Zithromax Take 1 tablet by mouth as needed (dental procedures). Take 1 hour prior to dental procedures 500 mg Refills: 0 Continued medications with new dosing Dose Details furosemide 40 mg tablet Commonly known as: Lasix Take 1 tablet by mouth daily for 90 days. What changed: medication strength how much to take 40 mg Quantity: 30 tablet Refills: 2 lidocaine 5% Adhesive Patch, Medicated Commonly known as: Lidoderm Apply 1 patch onto the skin daily. (leave on for 12 hours and remove for 12 hours) What changed: when to take this reasons to take this Quantity: 30 patch Refills: 3 Continued medications, unchanged Dose Details acetaminophen 500 mg tablet Commonly known as: Tylenol Take 1,000 mg by mouth every 6 hours as needed for Pain. 1,000 mg Refills: 0 aMILoride 5 mg tablet Commonly known as: Midamor TAKE ONE TABLET BY MOUTH EVERY DAY Quantity: 30 tablet Refills: 3 apixaban 5 mg tablet Commonly known as: Eliquis Take 5 mg by mouth 2 times daily. 5 mg Refills: 0 ascorbic acid (vitamin C) 500 mg chewable tablet Commonly known as: Vitamin C Take 1 tablet by mouth daily. 1 tablet Refills: 0 dilTIAZem CD 180 mg CD (ER) 24 hr casule Commonly known as: Cardizem CD Take 1 capsule by mouth daily. 180 mg Quantity: 45 capsule Refills: 3 folic acid 1 mg tablet Commonly known as: Vitamin B9 Take 1 mg by mouth daily. 1 mg Refills: 0 levothyroxine 150 mcg tablet Commonly known as: Synthroid TAKE ONE TABLET BY MOUTH EVERY DAY Quantity: 30 tablet Refills: 5 magnesium oxide 400 mg (241.3 mg magnesium) Tablet Commonly known as: Mag-Ox TAKE ONE TABLET BY MOUTH THREE TIMES A DAY Quantity: 90 tablet Refills: 5 multivitamin Tablet Commonly known as: THERAGRAN Take 1 tablet by mouth daily. 1 tablet Refills: 0 ondansetron 8 mg tablet Commonly known as: Zofran Take 1 tablet by mouth every 8 hours as needed for Nausea. 8 mg Quantity: 20 tablet Refills: 3 PARoxetine 20 mg tablet Commonly known as: Paxil Take 1 tablet by mouth every morning. 20 mg Quantity: 90 tablet Refills: 3 potassium chloride ER 20 mEq ER micro-encapsulated crystal tablet Commonly known as: Klor-Con M Take 1 tablet by mouth daily. 20 mEq Quantity: 30 tablet Refills: 5 traMADoL 50 mg tablet Commonly known as: Ultram Take 50 mg by mouth every 8 hours as needed. 50 mg Refills: 0 STOPPED Medications cannabidioL 100 mg/mL Solution Commonly known as: Epidiolex UNREVIEWED medications - Discuss With Your Provider Dose Details triamcinolone 0.1 % Cream Commonly known as: Kenalog Apply topically 2 times daily. Quantity: 30 g Refills: 0 Instructions Given to Patient at Discharge: TAVR Discharge Instructions: Call your doctor if: You have a fever of greater than 101 degrees, shaking chills, if you develop redness or drainage from your incision sites, or if you have questions. Please call your Aprn's office if you have any discharge or drainage from your procedural sites. Your Aprn, Dr. Edvin Sultana and/or the Offset Lithographic Press Operator may be reached at . You may also contact DAJA Taveras RN, TAVR Overseamer at [phone] with any questions or issues. Antibiotic prophylaxis: You will need to take antibiotics prior to many invasive tests and treatments, such as dental cleaning, which should be done every 6 months. Your primary care physician or your dentist can prescribe this medication. Please refer to the [place] [employer] Guidelines for more information. Good dental care is important for your overall health. We recommend waiting ~3 months before returning to your dentist except in cases of emergency. Activity level: Walk three times a day. You should continue to increase your walks by 1-2 minutes each day. It is expected that you will be walking 20-30 minutes twice a day within 3-4 weeks after discharge to home. Rest between activities and after meals. Use common sense, don't exhaust yourself. Home activities: You may resume your usual home activities such as housekeeping and chores; allowing time to rest as needed. Sexual activity: You may engage in sexual activity when you feel ready. Stairs: There are no restrictions on stair climbing. Use common sense. Don't exhaust yourself. Activities outside the home: After the first week home you may go out to dinner, visit friends, go to a movie, go to caodaism, etc. Heavy activities: No hunting, skiing, jogging, snow shoveling, snowmobiling, lawn mowing, swimming,golf or tennis until after your return appointment with the surgeon. Do not ride motorcycles, ATV'stractors or horses. Smoking: It is very important that you not smoke after surgery. Smoking cessation education was provided as appropriate. If you need further assistance with this please call and you will be referred to a smoking cessation specialist. Medications: Take only those medications listed on your discharge information. Keep your pain undercontrol so you can be active, do your coughing and breathing exercises and sleep. Contact us if thepain medication isn't working for you. Do not take any herbal preparations until after you return to see the surgeon. Diet: You should follow a regular diet until your appetite returns to normal. At that point in timeyou should resume a low fat, low cholesterol, [place] [employer] Diet/Renal diet. Driving: No driving for 3 days. Shower/Bath: You may shower daily. No baths, soaking, or swimming until cleared by your surgeon. Wound care: Wash your incisions daily with antibacterial soap and rinse well, pat dry. Assess for any signs of infection such as increased redness, pain, warmth or drainage. Please call your flume worker's office if you have any discharge or drainage from your procedural sites. If there is a lot of swelling, apply juan wraps during the day and remove at bedtime. Elevate your legs when you are sitting. Follow up appointments: Our office will schedule a follow-up appointment with your PCP, Jerzy Vidal MD, or Primary Technical Services Analyst in ~ 7-10 days. Follow up with Dr. Schneider as scheduled next week Our office will schedule a follow-up appointment with your Aprn, Dr. Florian, in 4 weeks with CXR, EKG, Echo, CBC, and CMP. [id number] interval: After initial 30 day follow-up appointment , all TAVR patients will follow-up again in one year with an echo. Cardiac Rehabilitation: Monica Jaramillo has been referred to Cardiac Rehab. After reviewing the patient's current medical status, the patient was deemed an inappropriate candidate for Cardiac Rehab services at this time. This can be re evaluated in the future. Future Appointments and Orders Future Appointments and Orders Future Appointments Provider Department Dept Phone 01/26/2023 1:30 PM Ciara Pitts APRN Hematology/Oncology at [facility] Arrive at: Home [phone] To view instructions for your video visit, click here, or visit this website: [email or web address] If you have not previously downloaded the [facility] patient portal software, [employer], or the [employer] enrique, please do so by clicking one of these links below or searching in your device's enrique store. For all desktops/laptops; for Android devices; for Apple/TOMODOS devices FAQs: Join Video Visit button not connecting? - This may be due to pop-up blockers. - Click this link to see: How to Disable Pop-Up Block for myDH Video Visits Zoom asking for a meeting password? - Exit out of the Zoom program and try the link again Future Orders Complete By Expires CBC (with Diff) [MOQ144 Custom] 02/20/2023 (Approximate) 08/22/2023 Process Instructions: INCLUDES: WBC, RBC, Hgb, Hct, Platelets, RBC Indices and Differential Scheduling Instructions: Comments: Questions: Comprehensive metabolic panel (non-fasting) [LAB17 Custom] 02/20/2023 (Approximate) 04/20/2023 Process Instructions: INCLUDES: Calcium, T Protein, Albumin, AST, ALT, Alk Phos, T Bili, BUN, Creat, GFR, Glucose, Lytes. Scheduling Instructions: Comments: Questions: Echocardiogram Transthoracic [98409 CPT(R)] 02/20/2023 (Approximate) 08/22/2023 Process Instructions: Scheduling Instructions: Questions: Where will study be performed?: [facility] [place] [facility] Does the patient have Congenital Heart Disease?: Does patient require sedation?: GA rationale: EKG 12 Lead [36813 CPT(R)] 02/20/2023 (Approximate) 08/22/2023 Process Instructions: Scheduling Instructions: Questions: Which location will this be performed?: [place] Is a rhythm strip needed?: No XR Chest PA & Lateral (Generic) [62011 92029 Custom] 02/20/2023 (Approximate) 08/22/2023 Process Instructions: Scheduling Instructions: Questions: Where will study be performed?: [facility] Radiology Portable exam?: Reason for exam and clinical history: s/p tavr Clinical information / vinson questions for radiologist: Stat read required?: Date of injury if applicable: Requested Time: Discharge References/Attachments None Signed: Tricia Hackett PA-C [facility] Section of Cardiac Surgery Date: 01/20/2023 CC: Jerzy Vidal MD No referring provider defined for this encounter. documented in this encounter Discharge Instructions * Patient Instructions* Tricia Hackett PA - 01/20/2023 11:31 AM EDT Instructions Given to Patient at Discharge: TAVR Discharge Instructions: Call your doctor if: You have a fever of greater than 101 degrees, shaking chills, if you develop redness or drainage from your incision sites, or if you have questions. Please call your Aprn's office if you have any discharge or drainage from your procedural sites. Your Aprn, Dr. Edvin Sultana and/or the Offset Lithographic Press Operator may be reached at . You may also contact DAJA Taveras RN, TAVR Overseamer at [phone] with any questions or issues. Antibiotic prophylaxis: You will need to take antibiotics prior to many invasive tests and treatments, such as dental cleaning, which should be done every 6 months. Your primary care physician or your dentist can prescribe this medication. Please refer to the [place] [employer] Guidelines for more information. Good dental care is important for your overall health. We recommend waiting ~3 months before returning to your dentist except in cases of emergency. Activity level: Walk three times a day. You should continue to increase your walks by 1-2 minutes each day. It is expected that you will be walking 20-30 minutes twice a day within 3-4 weeks after discharge to home. Rest between activities and after meals. Use common sense, don't exhaust yourself. Home activities: You may resume your usual home activities such as housekeeping and chores; allowing time to rest as needed. Sexual activity: You may engage in sexual activity when you feel ready. Stairs: There are no restrictions on stair climbing. Use common sense. Don't exhaust yourself. Activities outside the home: After the first week home you may go out to dinner, visit friends, go to a movie, go to caodaism, etc. Heavy activities: No hunting, skiing, jogging, snow shoveling, snowmobiling, lawn mowing, swimming,golf or tennis until after your return appointment with the surgeon. Do not ride motorcycles, ATV'stractors or horses. Smoking: It is very important that you not smoke after surgery. Smoking cessation education was provided as appropriate. If you need further assistance with this please call and you will be referred to a smoking cessation specialist. Medications: Take only those medications listed on your discharge information. Keep your pain undercontrol so you can be active, do your coughing and breathing exercises and sleep. Contact us if thepain medication isn't working for you. Do not take any herbal preparations until after you return to see the surgeon. Diet: You should follow a regular diet until your appetite returns to normal. At that point in timeyou should resume a low fat, low cholesterol, [place] [employer] Diet/Renal diet. Driving: No driving for 3 days. Shower/Bath: You may shower daily. No baths, soaking, or swimming until cleared by your surgeon. Wound care: Wash your incisions daily with antibacterial soap and rinse well, pat dry. Assess for any signs of infection such as increased redness, pain, warmth or drainage. Please call your flume worker's office if you have any discharge or drainage from your procedural sites. If there is a lot of swelling, apply juan wraps during the day and remove at bedtime. Elevate your legs when you are sitting. Follow up appointments: Our office will schedule a follow-up appointment with your PCP, Jerzy Vidal MD, or Primary Technical Services Analyst in ~ 7-10 days. Follow up with Dr. Schneider as scheduled next week Our office will schedule a follow-up appointment with your Aprn, Dr. MichaelYoung, in 4 weeks with CXR, EKG, Echo, CBC, and CMP. Exbp-Ftfdvu-[id number] interval: After initial 30 day follow-up appointment , all TAVR patients will follow-up again in one year with an echo. documented in this encounter Medications at Time of Discharge Medication Sig Dispensed Refills Start Date End Date dilTIAZem CD (Cardizem CD) 180 mg CD (ER) 24 hr casule Take 1 capsule by mouth daily. 45 capsule 3 11/07/2022 folic acid (Folvite) 1 mg Tablet Take 1 mg by mouth daily. ondansetron (Zofran) 8 mg TabletIndications:Drug -induced nausea and vomiting Take 1 tablet by mouth every 8 hours as needed for Nausea. 20 tablet 3 11/14/2020 acetaminophen (TYLENOL) 500 mg Tablet Take 1,000 mg by mouth every 6 hours as needed for Pain. ascorbic acid, vitamin C, (VITAMIN C) 500 mg Tablet, Chewable Take 1 tablet by mouth daily. apixaban (Eliquis) 5 mg Tablet Take 5 mg by mouth 2 times daily. multivitamin (THERAGRAN) Tablet Take 1 tablet by mouth daily. furosemide (Lasix) 40 mg tablet Take 1 tablet by mouth daily for 90 days. 30 tablet 2 01/20/2023 04/20/2023 aspirin 81 mg chewable tablet Take 81 mg by mouth daily for 180 days. 30 tablet 5 01/21/2023 07/20/2023 azithromycin (Zithromax) 500 mg tablet Take 1 tablet by mouth as needed (dental procedures). Take 1 hour prior to dental procedures 01/20/2023 06/24/2023 traMADoL (Ultram) 50 mg tablet Take 50 mg by mouth every 8 hours as needed. 12/03/2022 06/24/2023 lidocaine (Lidoderm) 5% Adhesive Patch, MedicatedIndications:A cute bilateral knee pain Apply 1 patch onto the skin daily. (leave on for 12 hours and remove for 12 hours) 30 patch 3 11/19/2022 06/24/2023 triamcinolone (Kenalog) 0.1 % Cream Apply topically 2 times daily. 30 g 11/07/2022 06/24/2023 aMILoride (Midamor) 5 mg tabletIndications:Thym ic carcinoma,Hypomagnesem ia TAKE ONE TABLET BY MOUTH EVERY DAY 30 tablet 3 10/14/2022 04/14/2023 levothyroxine (Synthroid) 150 mcg tabletIndications:Hypo thyroidism, unspecified type TAKE ONE TABLET BY MOUTH EVERY DAY 30 tablet 5 10/14/2022 06/15/2023 magnesium oxide (Mag-Ox) 400 mg (241.3 mg magnesium) TabletIndications:Hypo magnesemia TAKE ONE TABLET BY MOUTH THREE TIMES A DAY 90 tablet 5 05/31/2022 08/02/2023 PARoxetine (Paxil) 20 mg TabletIndications:Depr ession, unspecified depression type Take 1 tablet by mouth every morning. 90 tablet 3 04/09/2022 07/01/2023 potassium chloride ER (K-Dur/Klor-Con) 20 mEq Tab Sust.Rel. Particle/CrystalIndica tions:Hypokalemia Take 1 tablet by mouth daily. 30 tablet 5 01/21/2022 02/07/2023 documented as of this encounter Progress Notes * Nikole Busch RN - 01/20/2023 12:50 PM EDT Patient stable. Written discharge instructions provided, patient and daughter verbalized understanding, voices no concerns and have no additional questions. Patient discharged home with daughter * Tricia Hackett PA - 01/20/2023 9:10 AM EDT Cardiac Surgery Progress Note Monica Jaramillo is a 67 y.o. female with severe who is 1 Day Post-Op TF TAVR. PMH of , AF on Eliquis, HTN, CHF, Hypothyroidism, Pancytopenia, Thymic cancer, AUB 24h Events: - s/p TAVR - Postop new LAFB, resolved this morning. Chronic AF rate controlled. - 3L NC overnight, 1L NC this am S: No complaints, feeling well. Denies pain, SOB, dizziness, weakness. O: Temp: [36.5 ??C (97.7 ??F)-36.9 ??C (98.4 ??F)] Heart Rate: [63-76] Resp: [13-17] BP: (119-148)/(65-82) SpO2: [91 %-98 %] Heart Rate from SpO2: [63 bpm-76 bpm] 01/19 0701 - 01/20 0700 In: 1200 [P.O.:500; I.V.:700] Out: 1230 [Urine:1225] Admit weight: 92.76 kg Current weight: Weight: 91.9 kg (202 lb 9.6 oz) Physical Exam: General: no acute distress, OOB to chair Neuro: A&Ox4, no focal deficits Pulm: non-labored, diminished bases Cardiac: regular rate and irregular rhythm, without murmur/gallop/rub Vascular: warm, 1+ LE edema, dependent rubor, palpable DP pulses bilaterally Abd: non-tender, non-distended, active bowel sounds Integ: groin sites clean, dry without hematoma Assessment/Plan: 67 y.o. female 1 Day Post-Op TF TAVR. - s/p TAVR: ASA, Eliquis - Chronic persistent AF: Resume home dilt, Eliquis - Preop small right pleural effusion: Ordered CXR given O2 requirements. Resume half home lasix at 40 and amiloride - stage IV thymic cancer: follow up with outpatient Oncology on discharge - Dispo: home with family on discharge, floor status, full code Discussed with attending surgeon on rounds this morning. KIMBERLY Oh 01/20/2023 Between the hours of 1800 - 0600 and on the weekends please page [phone]. * Juan Miguel Castorena APRN - 01/20/2023 8:12 AM EDT Images from the original note were not included. Structural Heart Progress Note Patient info: Name: Monica Jaramillo : 1955 Date of Admission: 01/19/2023 ( Hospital Day 1 day ) Attending:Edvin Sultana MD ID: Monica Jaramillo is a 67 y.o. 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 She is now status post successful TAVR with [address] Sultana (01/19/2023). Patient Active Problem List Diagnosis ','Aortic stenosis Congestive heart failure, unspecified HF chronicity, unspecified heart failure type Platelet disorder Abnormal uterine bleeding Pancytopenia Atrial fibrillation Overview Note: Treated with metoprolol, diltiazem, eliquist Essential hypertension Hypothyroidism Overview Note: Secondary to Sutent Thymic carcinoma Active Problem List Severe Aortic Stenosis S/P TAVR 24 Hour Events/Subjective: NAONEs, pleasant this AM on rounds 2-3 L NC overnight; Sats 96% on RA during rounds EKG 01/20/2023; Atrial fibrillation, rate controlled, stable QRS Femoral Access sites healing as expected Plan for Chest XRAY this AM d/t hx of recurrent pleural effusions Objective Vasoactive & Sedating Medications: Infusions: Continuous Infusions: Ventilator Settings: Mode: , SET RR: TV: PEEP: FiO2: VARIABLES PATIENT RR: PIP: Pplateau: SpO2: OUTPUT Resp: 16 SpO2: 97 % Vitals Last value Range last 24 hrs Temperature Temp: 36.6 ??C (97.9 ??F) Temp: [36.5 ??C (97.7 ??F)-36.9 ??C (98.4 ??F)] Heart Rate Heart Rate: 63 Heart Rate: [63-76] Blood Pressure BP: 133/73 BP: (119-148)/(65-82) Art Line BP BP (Arterial Line): -- MAP (NBP): [85 mmHg-101 mmHg] Respiratory Rate Resp: 16 Resp: [13-16] SpO2 SpO2: 97 % SpO2: [91 %-98 %] Oxygen Delivery Oxygen Therapy O2 Device: None (Room air) O2 Flow Rate (L/min): 3 L/min Intake/Output Summary (Last 24 hours) at 01/20/2023 1202 Last data filed at 01/20/2023 0600 Gross per 24 hour Intake 1200 ml Output 1230 ml Net -30 ml Patient Vitals for the past 168 hrs: Weight 01/20/23 0534 91.9 kg (202 lb 9.6 oz) 01/19/23 1057 92.8 kg (204 lb 8 oz) Physical Exam: General: Pleasant female, no acute distress HEENT: Normocephalic, atraumatic, benign NECK: Supple, no masses, FROM CV: Normal rate, irregular rhythm no m/r/g, no ventricular heaves RESP: CTAB, diminished posterior airways, symmetric chest excursion GI: Soft, nd, nttp EXT: 2+ bilateral lower extremity edema, access sites nttp, non-indurated, no sig ecchymosis NEURO: No gross focal deficits PSYC: Appropriate mood and affect, alert and oriented DERM: No rash, wwp Lines/Drains/Airways Lines: Implanted Port - Single Lumen Port 05/20/17 1200 infraclavicular fossa, right pressure injectable catheter (Active) Peripheral IV Line - Single Lumen 01/19/23 1105 basilic vein (medial side of arm), left 18 gauge;1 in length (Active) Indication/Daily Review of Necessity fluid therapy intermittent 01/19/23 141 Site Preparation/Maintenance dressing: dry and intact 01/19/231415 Securement catheter stabilization device, secured with 01/19/23 141 Patency/Maintenance flushed without difficulty;infusing 01/19/23 141 Phlebitis 0-->no symptoms 01/19/231415 Infiltration 0-->no symptoms 01/19/23 141 Site Signs/Symptoms no redness;no swelling;no streak formation;no drainage;no pain;no warmth;no palpable cord 01/19/23 1416 Labs: Recent Labs 01/20/23 0412 01/19/23170501/19/23 1024 WBC 5.8 -- 4.4 HGB 9.4* 9.5* 10.1* HCT 30.4* -- 32.7* PLATELET 134* -- 160 MCV 109.0* -- 109.7* Recent Labs 01/20/23 0412 01/19/23 17001/19/23 1024 NA 133* -- 137 CL 99 -- 101 CO2 28 -- 28 K 4.5 4.7 4.5 CALCIUM 9.3 -- 9.9 BUN 15 -- 16 CREATININE 0.93 -- 0.92 Recent Labs 01/19/23 1157 POCGLU 96 Diagnostics: Echocardiogram (TAVR Deidra-procedural) Interpretation Summary Study performed for guidance of TAVR. PRE: Severe aortic stenoiss. LVEF 65%. Trivial posterior pericardial effusion. POST: Tino valve in the aortic position. Well seated with normal function, no regurgitation. Unchnaged LVEF. Unchanged pericardial effusion. RVSP 66 mmHg with normal RV function, mild to moderate tricuspid regurgitation. See report for additional findings. EKG: Medications Scheduled Meds: furosemide 40 mg Oral Daily dilTIAZem CD 180 mg Oral Daily aMILoride 5 mg Oral Daily apixaban 5 mg Oral BID folic acid 1 mg Oral Daily levothyroxine 150 mcg Oral Daily PARoxetine 20 mg Oral QAM sodium chloride 0.9 % (flush) 5 mL Intravenous BID aspirin 81 mg Oral Daily pantoprazole EC 40 mg Oral Daily senna-docusate 2 tablet Oral Daily Continuous Infusions: PRN Meds:.sodium chloride 0.9 % (flush), lidocaine, ondansetron, [START ON 01/22/2023] bisacodyL, acetaminophen, magnesium hydroxide Assessment & Plan: Monica Jaramillo is a 67 y.o. 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 She is now status post successful TAVR with [address] Sultana (01/19/2023). The patient is doing well and ambulating around the unit without anginal or heart failure symptoms.Historic Pre-TAVR and post-TAVR trivial effusion stable. Femoral access sites without hematoma, pulsatile mass, drainage, or significant ecchymosis. Will continue with ASA 81 daily and Eliquis 5 bid.If ISAÍAS stable, tentative plan for discharge home today with family. Will follow up in 30 days withSHD team with echo and labs. Plan - Continue aspirin 81 mg and Apixaban 5 mg BID - D/C home today pending CXRAY - Appreciate medication and hemodynamic optimization per primary team - 30 day structural heart follow up with CBC, BMP and echo Juan Miguel Castorena APRN Structural Heart Team Pager [phone] documented in this encounter H&P Notes * Holly Srinivasan PA - 01/19/2023 11:18 AM EDT Patient Name: Monica Jaramillo Patient Age: 67 y.o. Birthdate: 1955 Admit date: 01/19/2023 Attending Physician: Edvin Sultana MD [facility] Interventional Cardiology Structural Heart Program Adult Pre-Procedure H&P Update: TAVR Chief Complaint: severe symptomatic aortic valve stenosis HPI: Monica Jaramillo is a 67 y.o. female referred for cardiac catheterization for evaluation of cardiac hemodynamics, aortic valve anatomy and function, and implantation of bioprosthetic transcatheter aortic valve (aka TAVR). Past medical history significant for Monica Jaramillo is a 67 y.o. 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 She presents to clinic in follow up for outpatient TAVR evaluation following initial SHD consultation during recent hospitalization. CT Scan for TAVR planning demonstrates: low left coronary height, adequate iliofemoral sites There have not been any changes in health status since last seen in clinic. No fevers, no chills, no bleeding. Please see recent outpatient clinic note for comprehensive physical and history documentation. Planned Procedure: Anesthesa Temp pacing US guided bifemoral acess TF TAVR PHYSICAL: BP 125/67 (BP Location (NBP): Left arm) Comment: Right Arm - 124/77 Pulse 72 Temp 36.8 ??C (98.2 ??F) (Temporal) Resp 17 Ht 175.3 cm (5' 9.02) Wt 92.8 kg (204 lb 8 oz) SpO2 93% BMI 30.19 kg/m?? Gen: Alert, comfortable appearing, in NAD HEENT: EOMI, MMM Neck: Supple, no JVD CV: RRR, systolic murmur appreciated, normal S1/S2, PMI not palpated Resp: CTAB, no W/R/R Abd: Soft, NT/ND, +BS Ext: No edema, clubbing, or cyanosis. Warm and well perfused. Neuro: CN grossly intact, moving all extremities Psych: Appropriate affect Pulses: 2+ bilateral radial pulses, right hand adam's test demonstrates adequate reperfusion via ulnar artery alone, Barbeau test to be done in procedure room, 2+ bilateral femoral pulses, no femoral bruit appreciated, 2+ bilateral DP pulses Pre-Sedation Assessment: Per anesthesia assessment. Labs reviewed and notable for: Lab Results Component Value Date WBC 4.4 01/19/2023 HGB 10.1 (L) 01/19/2023 HCT 32.7 (L) 01/19/2023 MCV 109.7 (H) 01/19/2023 PLATELET 160 01/19/2023 Lab Results Component Value Date CREATININE 0.92 01/19/2023 BUN 16 01/19/2023 NA 137 01/19/2023 K 4.5 01/19/2023 CL 101 01/19/2023 CO2 28 01/19/2023 Lab Results Component Value Date INR 1.8 10/22/2022 Assessment/Plan: 67 y.o. female here for cardiac catheterization for aortic valve stenosis. Will proceed with percutaneous TAVR as planned. - proceed as planned - consent signed -no apparent contraindication to DAPT, patient denies upcoming or planned procedures/operations, and denies ongoing or recent bleeding events - FULL code -12-Lead ECG reviewed - Labs Reviewed: yes, updated in chart I have personally discussed the procedure, including benefits and risks, with the patient who agrees to proceed. The indications for the catheterization and valve replacement, the expected benefits, and the possible risks were reviewed in detail with the patient. The potential for , heart attack, stroke, kidney failure, bleeding, allergic reaction, vascular complications and infection as well as other potential complications were reviewed. Possible complications reviewed include access site bleeding necessitating open surgical / suture closure, aortic annular disruption or valve perforation requiring emergent cardiac surgery for treatment. The possibility of stenting and other percutaneous interventions, with associated risk, was reviewed. The potential need for emergent coronary artery bypass surgery was reviewed. Alternatives were discussed and the patient's questions were answered in full. Following this discussion, the patient consented to the procedure and signed a form attesting to this, which is in the chart KIMBERLY Garvin Interventional Cardiology 01/19/23 11:18 AM [facility] Pager: [phone] documented in this encounter Miscellaneous Notes * Brief Op Note - Marivel Cooper MD - 01/20/2023 12:55 PM EDT Brief Operative Note Patient Name: Monica Jaramillo : [id number] MR#: [id number] Case Date: 01/19/2023 Surgeon: Surgeon(s) and Role: * Edvin Sultana MD - Attending Co-Surgeon * Marivel Cooper MD - Attending Co-Surgeon * Parul Beltrán MD - Fellow - Assisting * Holly Srinivasan PA - Physician Pile Driving Supervisor Preoperative diagnosis: Severe aortic stenosis [I35.0] Postoperative diagnosis: Severe, calcific aortic stenosis. Post implant transthoracic echo shows preserved LV systolic function with a well-functioning aortic bioprosthesis with a mean gradient of 12and no aortic regurgitation. Procedure ; TF TAVR via RCFA with a 23 mm Tino bovine pericardial bioprosthesis Anesthesia: MAC / Chicho Findings: Severe, calcific aortic stenosis. Post implant transthoracic echo shows preserved LV systolic function with a well-functioning aortic bioprosthesis with a mean gradient of 12 and no aortic regurgitation. Estimated Blood Loss: 5 mL* No values recorded between 01/19/2023 11:38 AM and 02/04/2023 12:34 PM * Specimens removed during surgery: None Fluids: Intraprocedure Crystalloid Total Intake Lactated Ringers 700.00 mL Total Intake 700 mL Output Blood Loss 5 mL Total Output 5 mL Net Net Volume 695 mL PRBCs: none (See Anesthesia Record/Report for Other Blood Products) Urine Output: (no urine output recorded) Disposition: aroused from sedation, and taken to the recovery room in a stable condition Condition: doing well without problems Attestation: Case Date: 01/19/2023 I was present and I participated during the entire procedure (does not need to include opening and closing). MARIVEL COOPER MD 02/04/2023 * Care Management Discharge - Rajesh Rajput RN - 01/20/2023 12:40 PM EDT CARE MANAGEMENT FINAL DISCHARGE NOTE Chart reviewed, care reviewed with primary team and at interdisciplinary rounds. Patient is medically ready for discharge to home. Per care team, Patient with no apparent RNCM/SW needs at this time. No housing, transportation, insurance, resources concerns identified at this time. Supports in place to achieve a safe post-hospital transition. No identified barriers to accessing necessary care and/or follow-up after discharge. Needs for Transition of Care: Plan for discharge is: Home w/o Services Outpatient Agency/Support Group Needs: None Agency Referrals & Follow-up Care: D-H Scheduled Appointments D-H Scheduled Appointments JAN 26 myD-H Follow-up Video Visit with Ciara Pitts, Tuesday 1:30 PM (Arrive by 1:15 PM) To view instructions for your video visit, click here, or visit this website: [email or web address] If you have not previously downloaded the [facility] patient portal software, A [employer] [place], or the [employer] enrique, please do so by clicking one of these links below or searching in your device's enrique store. For all desktops/laptops; for Android devices; for Apple/iOS devices FAQs: Join Video Visit button not connecting? - This may be due to pop-up blockers. - Click this link to see: How to Disable Pop-Up Block for myDH Video Visits Zoom asking for a meeting password? - Exit out of the Zoom program and try the link again Transportation: family or friend will provide Home Environment: . . Accessibility Concerns: . na Current Functional Ability: Independent DME Needed at Discharge: none Patient is insured through: Primary Insurance: [employer] Payor: [employer] / Plan: [employer] / Product Type: *No Product type* / Secondary Insurance: N/A Prescription Coverage: This plan was formulated with input from patient, and team. All are in agreement with plan. IMM delivered by CRYSTAL Malik on 01/19/23. Rajesh Rajput RN * Plan of Care - Devi Leon RN - 01/20/2023 5:36 AM EDTSummary: Machine Milker summary Patient AOx4, VSS, 3L NC @ 98%, Afib on tele; see scanned docs. Neuro checks WDL except BLE edema, numbness, and tingling. N+T chronic. BLE ruddiness, WC consult in place for recommendations. Bilateral femoral sites CDI, no hematoma or bleeding. Patient had an episode of restless leg syndrome during the night, gave tylenol PRN and warm blankets with good effect. Patient slept between care, call wallace within reach, frequent safety checks. Plan Q4VS, Q4 Neuro checks Wound care consult AM EKG Interventions: ongoing Problem: Fall Injury Risk Goal: Absence of Fall and Fall-Related Injury Outcome: Ongoing (Interventions Implemented as Appropriate) Problem: Adult Inpatient Plan of Care Goal: Plan of Care Review Outcome: Ongoing (Interventions Implemented as Appropriate) Goal: Patient-Specific Goal (Individualized) Outcome: Ongoing (Interventions Implemented as Appropriate) Goal: Absence of Hospital-Acquired Illness or Injury Outcome: Ongoing (Interventions Implemented as Appropriate) Goal: Optimal Comfort and Wellbeing Outcome: Ongoing (Interventions Implemented as Appropriate) Goal: Readiness for Transition of Care Outcome: Ongoing (Interventions Implemented as Appropriate) * Consult Note - Ivana Spencer RN - 01/19/2023 2:19 PM EDT Monica Jaramillo has been referred to Cardiac Rehab. After reviewing the patient's current medical status, the patient was deemed an inappropriate candidate for Cardiac Rehab services at this time. This can be re evaluated in the future. * Brief Op Note - Parul Beltrán MD - 01/19/2023 1:02 PM EDT Preliminary Cardiac Catheterization Procedure Note: Patient Name: Monica Jaramillo : [id number] MR#: [id number] Case Date: 01/19/2023 Division Plant Engineer: Surgeon(s) and Role: Panel 1: * Edvin Sultana MD - Primary * Parul Beltrán MD - Fellow - Assisting * Holly Srinivasan PA - Physician Pile Driving Supervisor Panel 2: * Marivel Cooper MD - Primary Preoperative diagnosis: Aortic stenosis, severe Postoperative diagnosis: S/P TAVR with Luna 23 mm Ultra Resilia valve Procedure(s) performed: TAVR Access Sites and Closure: Right femoral artery - Hemostasis with one 6Fr Perclose Left femoral artery - Hemostasis with one 6 Fr Perclose Left femoral vein - Hemostasis with manual compression Preliminary findings: Successful TAVR with 23 mm valve Recommendation: Aspirin 81 mg daily and continue home dose Apixaban 5 mg BID The patient tolerated the procedures smoothly and was transferred from the cardiac catheterization lab to the next level of care in stable condition. No evident early complications. Full report to follow. Parul Beltrán MD, M.Sc. Structural Heart Disease Fellow Pager :[phone] * Op Note - Marivel Cooper MD - 01/19/2023 11:38 AM EDT [facility] Operative Note Patient Name: Monica Jaramillo : [id number] MR#: [id number] Case Date: 01/19/2023 Surgeon: Surgeon(s) and Role: * Edvin Sultana MD - Attending Co-Surgeon * Marivel Cooper MD - Attending Co-Surgeon * Parul Beltrán MD - Fellow - Assisting * Holly Srinivasan PA - Physician Pile Driving Supervisor Preoperative diagnosis: Severe aortic stenosis [I35.0] Postoperative diagnosis: Severe, calcific aortic stenosis. Post implant transthoracic echo shows preserved LV systolic function with a well-functioning aortic bioprosthesis with a mean gradient of 12and no aortic regurgitation. Procedure ; TF TAVR via RCFA with a 23 mm Tino bovine pericardial bioprosthesis Anesthesia: MAC / Chicho Findings: Severe, calcific aortic stenosis. Post implant transthoracic echo shows preserved LV systolic function with a well-functioning aortic bioprosthesis with a mean gradient of 12 and no aortic regurgitation. Estimated Blood Loss: 5 mL* No values recorded between 01/19/2023 11:38 AM and 02/04/2023 12:34 PM * Specimens removed during surgery: None Fluids: Intraprocedure Crystalloid Total Intake Lactated Ringers 700.00 mL Total Intake 700 mL Output Blood Loss 5 mL Total Output 5 mL Net Net Volume 695 mL PRBCs: none (See Anesthesia Record/Report for Other Blood Products) Urine Output: (no urine output recorded) Disposition: aroused from sedation, and taken to the recovery room in a stable condition Condition: doing well without problems Procedure Description: The patient was brought to the Public Health Clinical Nurse Specialist and placed upon the Public Health Clinical Nurse Specialist table in the supine position. Following administration of the sedation anesthetic the patient was prepped and draped using sterileprep. Simultaneous femoral arterial access was obtained utilizing Seldinger techniques and 0.035 inch J-tipped guidewires. Using these techniques 6 Palestinian sheaths were placed into the right and left common femoral artery. Angiography demonstrated positioning of the catheters above the femoral arterial bifurcation. Using similar techniques a 6 Palestinian sheath was placed into the left common femoral vein through which a transvenous pacemaker was directed under fluoroscopy into the right ventricle. A dequate pacing thresholds were confirmed. Through the left arterial sheath aortic root angiography was performed after directing a pigtail catheter into the right-coronary cusp. Appropriate deployment angles were confirmed. The patient was systemically heparinized. The right common femoral sheath was upsized to a THV sheath for delivery of the prosthesis. The aortic valve was then crossed with a 6 Palestinian AL-1 catheter and straight wire which was then exchanged for 0.035 Amplatz extra-stiff guidewire which had an LV curve placed in it. The Tino prosthesis was brought onto the field and delivered into the descending aorta through the E sheath under fluoroscopy. Nominal volumes were used to prep the valve. The valve was then re-mounted on the balloon under fluoroscopy and the commander delivery system was directed around the thoracic aortic arch into the [place] calcified annulus under fluoroscopy. Root angiography under rapid pacing demonstrated appropriate deployment positioning. In the valve was deployed under a second interval of rapid ventricular pacing. Transthoracic echo was performed, the above findings were noted. The delivery catheter was then removed. The delivery E sheath was withdrawn over a wire and the Perclose were fully deployed. Successful hemostasis was secured.Hemostasis was secured at the left common femoral arterial site after removal of the sheath. The venous sheath was removed. The patient tolerated the procedure well and was taken to the Public Health Clinical Nurse Specialist recovery room in hemodynamically stable condition. Attestation: Case Date: 01/19/2023 I was present and I participated during the entire procedure (does not need to include opening and closing). MARIVEL COOPER MD 02/04/2023 documented in this encounter Plan of Treatment Upcoming Encounters Date Type Department Care Team (Late st [facility] Info) Description 02/24/2024 9:00 AM EDT Office Visit Hematology/Oncology at [address] [phone] Shon Schneider MD [facility] [place] [address] [address] HEMATOLOGY AND ONCOLOGY [place], [place] [id number] 02/24/2024 9:30 AM EDT Infusion Hematology Oncology at [address] [phone] 03/02/2024 11:00 AM EDT Office Visit Hematology/Oncology at [address] [phone] Shon Schneider MD [facility] [place] [address] [address] H[place]OLOG[place] [address] 03/02/2024 12:30 PM EDT Infusion Hematology Oncology at [address] [phone] 03/09/2024 10:00 AM EDT Office Visit Hematology/Oncology at [address] [phone] Shon Schneider MD [facility] [place] [address] Ciara Pitts APRN [address] [place] [address] DR HEMATOLOGY AND ONCOLOGY [place], [place] [address] 03/09/2024 10:30 AM EDT Infusion Hematology Oncology at [address] [phone] Scheduled Orders Name Type Priority Associated Diagnoses Orde r Schedule @TRANSCATHETER AORTIC VALVE REPLACEMENT (TAVR), PERCUTANEOUS FEMORAL Procedures Routine Severe aortic stenosis One Time for 1 Occurrences starting 01/10/2023 until 01/10/2023 EKG 12 Lead ECG Routine Severe aortic stenosis One Time for 1 Occurrences starting 01/19/2023 until 01/19/2023 documented as of this encounter Goals Goal [...] Procedure Name Priority Date/Time Associated Diagnosis Comments CARDIAC CATHETERIZATION Routine 01/25/20 11:37 AM EDT Severe aortic stenosis XR CHEST PA AND LATERAL Routine 01/21/20 10:48 AM EDT EKG 12-LEAD Routine 01/20/2023 6:33 AM EDT S/P TAVR (transcatheter aortic valve replacement) HEMOGRAM Routine 01/20/2023 4:12 AM EDT DIFFERENTIAL, AUTOMATED Routine 01/21/20 4:12 AM EDT CBC (WITH DIFF) Routine 01/20/2023 4:12 AM EDT BASIC METABOLIC PANEL Routine 01/20/2023 4:12 AM EDT HEMOGLOBIN Routine 01/19/2023 5:06 PM EDT POTASSIUM Routine 01/19/2023 5:06 PM EDT ECHO LMTD W/O CONTRAST W LMTD SPEC DOPP COLOR DOPP Routine 01/19/2023 2:36 PM EDT Severe aortic stenosis POCT GLUCOSE Routine 01/19/2023 11:57 AM EDT PREPARE RBC STAT 01/19/2023 11:50 AM EDT TYPE AND SCREEN VALIDITY Routine 01/19/2023 10:24 AM EDT ABORH RECHECK STATUS Routine 01/19/2023 10:24 AM EDT SCAN, PERIPHERAL BLOOD Routine 10:24 AM EDT HEMOGRAM Routine 01/19/2023 10:24 AM EDT Severe aortic stenosis DIFFERENTIAL, AUTOMATED Routine 01/20/20 10:24 AM EDT Severe aortic stenosis TYPE AND SCREEN, SDP (FUTURE SURGERY, [facility] SAME DAY PROGRAM ONLY) Routine 01/19/2023 10:24 AM EDT Severe aortic stenosis ABO/RH TYPING Routine 01/19/2023 10:24 AM EDT Severe aortic stenosis CBC (WITH DIFF) Routine 01/19/2023 10:24 AM EDT Severe aortic stenosis ANTIBODY SCREEN Routine 01/19/2023 10:24 AM EDT Severe aortic stenosis BASIC METABOLIC PANEL Routine 01/19/2023 10:24 AM EDT Severe aortic stenosis documented in this encounter Results * EKG 12 Lead (03/25/2023 1:42 PM EDT) Ventricular rate 83 BPM MUSE SYSTEM QRS Duration 72 ms MUSE SYSTEM Q-T Interval 384 ms MUSE SYSTEM QTC Calculated (Bezet) 451 ms MUSE SYSTEM Calculated R [place] 97 degrees MUSE SYSTEM Calculated T [place] 12 degrees MUSE SYSTEM INTERPRETATION Atrial fibrillation Rightward axis Low voltage QRS Abnormal ECG When compared with ECG of 20-JAN-2023 06:33, No significant change was found Confirmed by MD Pernell, Kyaw Bourgeois ([id number]) on 03/25/2023 3:05:23 PM MUSE SYSTEM 03/25/2023 1:42 PM EDT 03/25/2023 3:05 PM EDT Edvin Sultana MD ECG ORDERABLES MUSE SYSTEM * (ABNORMAL) Comprehensive metabolic panel (non-fasting) (03/25/2023 11:01 AM EDT) Glucose 103 65 - 199 mg/dL [facility] Comment:Diabetes: >=200 mg/d L plus symptoms Blood Urea Nitrogen 25(H) 8 - 18 mg/dL [facility] Creatinine 0.87 0.70 - 1.20 mg/dL [facility] Sodium 142 135 - 145 mmol/L [facility] Potassium 4.2 3.5 - 5.0 mmol/L [facility] Comment: Please note: ??Patients with WBC >100,000 may have falsely elevated Potassium levels. ??For accurate Potassium quantification in these patients send serum separator tube (gold top) for subsequent determinations. ??Contact the Clinical Chemistry Laboratory if there are any questions. Chloride 100 98 - 107 mmol/L [facility] Carbon Dioxide 32(H) 22 - 31 mmol/L [facility] Anion Gap 10 5 - 15 mmol/L [facility] Calcium 10.3 8.5 - 10.5 mg/dL [facility] Protein, Total 8.1(H) 6.1 - 8.0 g/dL [facility] Albumin 4.2 3.2 - 5.2 g/dL [facility] Aspartate Aminotransferase 15 0 - 30 unit/L [facility] Alanine Aminotransferase 8 0 - 30 unit/L [facility] Alkaline Phosphatase 65 35 - 105 unit/L [facility] Bilirubin, Total 0.6 0.2 - 1.3 mg/dL [facility] Est Glomerular Filtration Rate 74 >=60 mL/min/1. 73 m?? [facility] Comment: This patient's estimated GFR [...] Narrative Resulting Agency Comment Spec In Lab Edvin Sultana MD CHEMISTRY ORDERABLES Performing Organization Address City/State/[facility] Co de Phone Number [facility] [place] [address] * CARDIAC CATHETERIZATION (01/24/2023 11:37 AM EDT) Anatomical Region Laterality Modality Other Narrative 01/19/2023 4:57 PM EDT ?[facility] ? Cardiac Catheterization/Intervention Report ? Patient Name: Monica Jaramillo Jose ? Procedure Date: 01/19/2023 ? A #: [id number] ? Primary Physician: Edvin Sultana ? Case #: [id number] ? File Name: [id number] ? Catheterization Order Number: [id number] ? [facility] ? Final Report [place], [place] ? Patient Name: ? Monica L. Ella ? ID#: ?[id number] ? : ?1955 ? Procedure Date: ? January 19, 2023 ? Case #: ? [id number] ? Room: ? 6 ? Case Physicians: ?Edvin Sultana M.D. ?Start: ?11:54 ?Ryan Hector Valentino M.D. ?Admission: ??01/19/2023 ?Fellow: ? Emajoanna Barrientos M.D. ? Procedures: ?* Left Heart Catheterization ?* Aortic Root Aortogram ?* Transcatheter Aortic Valve Replacement ?* Vascular Closure Device Deployment ?* Temporary Pacemaker Insertion In Public Health Clinical Nurse Specialist ?* Access Site Angiography ?* Anesthesia ?* Arterial Blood Gases ?* Transthoracic Echo During Cath ?* Vascular Ultrasound ? Pre Case Status: ?Temporary cardiac pacing had been initiated prior to arrival for the ?case. ? History ?Monica Jaramillo is a 67 year old woman. The patient's smoking status is ?Unknown. The patient has a history of atrial fibrillation/atrial flutter. ?She also has a history of cancer. Prior to the initiation of this ?procedure, the patient was designated as ASA Class III. The CSHA clinical ?frailty scale is 4: Vulnerable. ? Diagnostic Tests: ?Medications Prior to Procedure: ? Calcium Channel Blocking Agent. ? Indications for Diagnostic Cath: ?The priority of the diagnostic procedure was Elective. Chest pain symptom ?assessment was: Atypical Angina. One of the indications for cath is ?valvular heart disease. The patient has Severe aortic stenosis. ? Technique: ?A 14Fr sheath was inserted in the right femoral artery utilizing the ?Seldinger technique. A 7Fr sheath was inserted in the left femoral artery ?utilizing the Seldinger technique. A 6Fr sheath was inserted in the left ?femoral vein utilizing the Seldinger technique. The aortic root was ?injected utilizing a 6Fr ANGLED PIGTAIL catheter. A 5.5Fr Pacel Flow ?Directed Pacing Cat lead was placed for a temporary pacing lead. 8,000 ?units of heparin were administered. A total of 100cc of Omnipaque were ?opened, 41cc of Omnipaque were administered and 59cc of Omnipaque were ?wasted. Radiation: Fluoro time was 18.0 minutes, dose area product was ?69,900 mGYcm2 and air kerma was 463 mGY. See the case log for additional ?details. ?The patient received the following medications prior to and during the ?procedure: ? Unfractionated Heparin. ? Hemodynamics: ?Left Heart Pressures ? Resting: ? Syst Diast ? EDP ?a ?v ? m ?Ao 115 ?? 69 ?84 ? Aortography: ?Comments: ? There was evidence of aortic valve calcification. The ascending ? thoracic aorta was calcified. ? Transcatheter Aortic Valve Replacement (TAVR): ?A transcatheter aortic valve replacement was performed. The primary ?indication for the procedure was Primary and the reason for the ?procedure was high risk (>=8% risk of 30 day mortality) surgical risk. ?The etiology of the aortic valve disease was degenerative. The valve ?morphology was tricuspid and there was trace/trivial aortic insufficiency ?at baseline. ?The procedure was performed in the hybrid cath suite. The aortic valve ?annular size was 490 sq.mm. as assessed by CTA. At baseline the mean ?trans-valvular gradient was 48.0 mmHg and the aortic valve area was 0.6 ?sq.cm. The calculated STS risk score was 2.0%. ?The procedure was performed under Moderate sedation performed by Ryan Young ?Kaylah Valentino (see anesthesia report for additional details). Marivel Haq ?Kaylah Cooper participated in the case (see Cardiac Surgery report for ?additional details). ?The TAVR sheath was a 14 Fr Luna eSheath Introducer and the access ?site was femoral. Rapid ventricular pacing was performed. ?An Luna Tino 3 Ultra RESILIA 23 mm THV ([id number]/g=[id number]) transcatheter ?valve was inserted using standard technique. Protamine was administered ?at the conclusion of the case. ?The post procedure mean trans-valvular gradient was 1.0 mmHg by ?hemodynamic measurement. A post procedure transthoracic echocardiogram ?was performed. The mean trans-TAVR valve gradient was 1.0mmHg. There was ?residual aortic insufficiency as assessed by echo-TTE. ?The TAVR procedure was successful. ? Vascular Access: ?Vascular Access Angiogram: ? A selective angiogram at the left femoral artery revealed mild ? diffuse disease. ? A selective angiogram at the right femoral artery revealed mild ? diffuse disease. ?Vascular Ultrasound: ? Ultrasound of the right femoral artery was used to guide access and ? showed vessel patent with mild disease. Needle entry was observed. ?Vascular Access Management: ? A 6 Fr Perclose was deployed at the left femoral artery access site. ? This device was successful. Manual Compression of the left femoral ? artery access site was performed. ? Manual Compression of the left femoral vein access site was ? performed. ? A 6 Fr Perclose was deployed at the right femoral artery access ? site. This device was successful. Manual Compression of the right ? femoral artery access site was performed. ? Point of Care Testing: ?ABG: ? Arterial Blood gasses were performed using the I-Stat analyzer at ? 11:53: pH: 7.37, pCO2: 49.5, pO2: 73.0, sPO2: 94%, HCO3: 28 on FIO2: ? simple mask. ?I-Stat: ? I-Stat was performed using the I-Stat analyzer at 11:53: Na+: 138, ? K+: 4.0, iCa++: 1.28, Hct: 29%, Hb: 9.9. ? 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 ?Recommended anti-platelet/anti-thrombotic regimen: ?Continue aspirin 81 mg daily. ?Continue apixaban 5 mg twice daily. ?These recommendations are made at the time of the intervention. Patient ?and provider preferences or a changing clinical situation may require ?modification of this regimen. Consult [facility] Interventional Cardiology for ?questions. ? Conclusions: ?* Ascending thoracic aortic calcification was detected ?* Successful Transcatheter Aortic Valve Replacement ?* See Dual Antiplatelet (DAPT) Recommendations above ? Complications/Events: ?The patient had no complications during these procedures. ? Post Procedure Fluid Recommendations: ?IV fluid at 278 mL/hr for 4 hours for a total of 1,112 mL. These ?recommendations are made at the time of the procedure. Patient and ?provider preferences or a changing clinical situation may require ?modification of this regimen. ?The attending physician was present for the entire procedure. ?Dr. Edvin Sultana M.D. performed the left heart catheterization, aortic ?root aortogram, access site angiography, vascular ultrasound, temporary ?pacemaker in forestry farm laborer, vascular closure device, transthoracic echo ??and ?TAVR. Dr. Ryan Valentino M.D. performed the anesthesia and ABG. ? Edvin Sultana M.D. ? Electronically Signed by: Bryce GomezD. ? Report Finalized: 01/19/2023 ??16:53 ? Report Last Ammended: 01/24/2023 ??11:29 ? Procedure Note Edvin Sultana MD - 01/24/2023 [facility] Cardiac Catheterization/Intervention Report Patient Name: Monica Jaramillo Procedure Date: 01/19/2023 A #: [id number] Primary Physician: Edvin Sultana Case #: [id number] File Name: [id number] Catheterization Order Number: [id number] [facility] FinalReport [place], [place] Patient Name: Monica Jaramillo ID#:[id number] :1955 Procedure Date: January 19, 2023 Case #: [id number] Room: 6 Case Physicians: Edvin Sultana M.D. Start: 11:54 Ryan Valentino M.D. Admission:01/19/2023 Fellow: Parul Barrientos M.D. Procedures: * Left Heart Catheterization * Aortic Root Aortogram * Transcatheter Aortic Valve Replacement * Vascular Closure Device Deployment * Temporary Pacemaker Insertion In Public Health Clinical Nurse Specialist * Access Site Angiography * Anesthesia * Arterial Blood Gases * Transthoracic Echo During Cath * Vascular Ultrasound Pre Case Status: Temporary cardiac pacing had been initiated prior to arrival for the case. History Monica Jaramillo is a 67 year old woman. The patient's smokingstatus is Unknown. The patient has a history of atrial fibrillation/atrialflutter. She also has a history of cancer. Prior to the initiation of this procedure, the patient was designated as ASA Class III. The CSHAclinical frailty scale is 4: Vulnerable. Diagnostic Tests: Medications Prior to Procedure: Calcium Channel Blocking Agent. Indications for Diagnostic Cath: The priority of the diagnostic procedure was Elective. Chest painsymptom assessment was: Atypical Angina. One of the indications for cath is valvular heart disease. The patient has Severe aortic stenosis. Technique: A 14Fr sheath was inserted in the right femoral artery utilizing the Seldinger technique. A 7Fr sheath was inserted in the left femoralartery utilizing the Seldinger technique. A 6Fr sheath was inserted in theleft femoral vein utilizing the Seldinger technique. The aortic root was injected utilizing a 6Fr ANGLED PIGTAIL catheter. A 5.5Fr Pacel Flow Directed Pacing Cat lead was placed for a temporary pacing lead.8,000 units of heparin were administered. A total of 100cc of Omnipaquewere opened, 41cc of Omnipaque were administered and 59cc of Omnipaquewere wasted. Radiation: Fluoro time was 18.0 minutes, dose area productwas 69,900 mGYcm2 and air kerma was 463 mGY. See the case log foradditional details. The patient received the following medications prior to and duringthe procedure: Unfractionated Heparin. Hemodynamics: Left Heart Pressures Resting: Syst Diast EDP a v m Ao 115 69 84 Aortography: Comments: There was evidence of aortic valve calcification. The ascending thoracic aorta was calcified. Transcatheter Aortic Valve Replacement (TAVR): A transcatheter aortic valve replacement was performed. The primary indication for the procedure was Primary and the reason for the procedure was high risk (>=8% risk of 30 day mortality) surgicalrisk. The etiology of the aortic valve disease was degenerative. The valve morphology was tricuspid and there was trace/trivial aorticinsufficiency at baseline. The procedure was performed in the hybrid cath suite. The aorticvalve annular size was 490 sq.mm. as assessed by CTA. At baseline the mean trans-valvular gradient was 48.0 mmHg and the aortic valve area was0.6 sq.cm. The calculated STS risk score was 2.0%. The procedure was performed under Moderate sedation performed byRyan Valentino M.D. (see anesthesia report for additional details). Marivel Cooper M.D. participated in the case (see Cardiac Surgeryreport for additional details). The TAVR sheath was a 14 Fr Luna eSheath Introducer and theaccess site was femoral. Rapid ventricular pacing was performed. An Luna Tino 3 Ultra RESILIA 23 mm THV (s/z=[id number])transcatheter valve was inserted using standard technique. Protamine wasadministered at the conclusion of the case. The post procedure mean trans-valvular gradient was 1.0 mmHg by hemodynamic measurement. A post procedure transthoracicechocardiogram was performed. The mean trans-TAVR valve gradient was 1.0mmHg. Therewas residual aortic insufficiency as assessed by echo-TTE. The TAVR procedure was successful. Vascular Access: Vascular Access Angiogram: A selective angiogram at the left femoral artery revealed mild diffuse disease. A selective angiogram at the right femoral artery revealed mild diffuse disease. Vascular Ultrasound: Ultrasound of the right femoral artery was used to guide accessand showed vessel patent with mild disease. Needle entry wasobserved. Vascular Access Management: A 6 Fr Perclose was deployed at the left femoral artery accesssite. This device was successful. Manual Compression of the leftfemoral artery access site was performed. Manual Compression of the left femoral vein access site was performed. A 6 Fr Perclose was deployed at the right femoral artery access site. This device was successful. Manual Compression of theright femoral artery access site was performed. Point of Care Testing: ABG: Arterial Blood gasses were performed using the I-Stat analyzerat 11:53: pH: 7.37, pCO2: 49.5, pO2: 73.0, sPO2: 94%, HCO3: 28 onFIO2: simple mask. I-Stat: I-Stat was performed using the I-Stat analyzer at 11:53: Na+:138, K+: 4.0, iCa++: 1.28, Hct: 29%, Hb: 9.9. 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 Recommended anti-platelet/anti-thrombotic regimen: Continue aspirin 81 mg daily. Continue apixaban 5 mg twice daily. These recommendations are made at the time of the intervention.Patient and provider preferences or a changing clinical situation mayrequire modification of this regimen. Consult [facility] Interventional Cardiologyfor questions. Conclusions: * Ascending thoracic aortic calcification was detected * Successful Transcatheter Aortic Valve Replacement * See Dual Antiplatelet (DAPT) Recommendations above Complications/Events: The patient had no complications during these procedures. Post Procedure Fluid Recommendations: IV fluid at 278 mL/hr for 4 hours for a total of 1,112 mL. These recommendations are made at the time of the procedure. Patient and provider preferences or a changing clinical situation may require modification of this regimen. The attending physician was present for the entire procedure. Dr. Edvin Sultana M.D. performed the left heart catheterization,aortic root aortogram, access site angiography, vascular ultrasound,temporary pacemaker in forestry farm laborer, vascular closure device, transthoracic echoand TAVR. Dr. Ryan Valentino M.D. performed the anesthesia and ABG. Edvin Sultana M.D. Electronically Signed by: Edvin Sultana M.D. Report Finalized: 01/19/2023 16:53 Report Last Ammended: 01/24/2023 11:29 Edvin Sultana MD CARDIAC CATH ORDERAB LES * XR Chest PA & Lateral (Generic) (01/20/2023 10:48 AM EDT) Anatomical Region Laterality Modality Chest N/A Digital Radiogra phy Impressions 01/20/2023 1:17 PM EDT Small partially loculated left stable moderate partially loculated right pleural effusion with segmental left lower lobe collapse and collapse versus consolidation of the right middle and lower lobes. Thank you for letting us participate in the care of this patient. ??If you are a health care provider and have any questions regarding this report, please contact the number below. ??For patients who have questions please contact the health hospice spiritual care coordinator that requested your imaging first. ? Narrative 01/20/2023 1:17 PM EDT EXAMINATION: XR CHEST PA AND LATERAL (GENERIC) CLINICAL HISTORY: eval left effusion TECHNIQUE: PA and lateral views of the chest COMPARISON: November 01, 2022 FINDINGS: Small partially loculated left pleural effusion. Stable moderate partially loculated right pleural effusion and extends to the lateral aspect of the major fissure. Segmental left lower collapse. Collapse versus consolidation right middle and lower lobes. No pneumothorax. No consolidation within aerated pulmonary parenchymal segments. No displaced rib fracture. Procedure Note Esthela Woo MD - 01/20/2023 EXAMINATION: XR CHEST PA AND LATERAL (GENERIC) CLINICAL HISTORY: eval left effusion TECHNIQUE: PA and lateral views of the chest COMPARISON: November 01, 2022 FINDINGS: Small partially loculated left pleural effusion. Stable moderatepartially loculated right pleural effusion and extends to the lateral aspect of themajor fissure. Segmental left lower collapse. Collapse versus consolidation right middleand lower lobes. No pneumothorax. No consolidation within aerated pulmonary parenchymalsegments. No displaced rib fracture. IMPRESSION Small partially loculated left stable moderate partially loculated rightpleural effusion with segmental left lower lobe collapse and collapse versus consolidation of the right middle and lower lobes. Thank you for letting us participate in the care of this patient. If youare a health care provider and have any questions regarding this report,please contact the number below. For patients who have questions please contactthe health hospice spiritual care coordinator that requested your imaging first. Edvin Sultana MD IMG DX ORDERABLES * EKG 12 Lead (01/20/2023 6:33 AM EDT) Ventricular rate 62 BPM MUSE SYSTEM QRS Duration 72 ms MUSE SYSTEM Q-T Interval 412 ms MUSE SYSTEM QTC Calculated (Bezet) 418 ms MUSE SYSTEM Calculated R [place] 75 degrees MUSE SYSTEM Calculated T [place] -6 degrees MUSE SYSTEM INTERPRETATION Atrial fibrillation Abnormal ECG When compared with ECG of 17-MAY-2023 10:26, No significant change was found I personally reviewed the tracing and edited the fellows interpretation Confirmed by fellow Salomón Milner ([id number]) on 01/20/2023 7:23:16 PM Confirmed by MD FARR ARMIN ([id number]) on 01/20/2023 9:04:38 PM MUSE SYSTEM 01/20/2023 6:33 AM EDT 01/20/2023 9:04 PM EDT Edvin Sultana MD ECG ORDERABLES MUSE SYSTEM * (ABNORMAL) Differential, Automated (01/20/2023 4:12 AM EDT) Neutrophil % 74.2 % [facility] Neutrophil Absolute 4.31 1.70 - 6.10 x10(3)/mc L [facility] Lymph % 8.2 % [facility] Lymphocytes Abs 0.5(L) 0.9 - 3.2 x10(3)/mc L [facility] Monocyte % 13.2 % [facility] Monocyte Abs 0.8 0.3 - 0.9 x10(3)/mc L [facility] Eos % 3.4 % [facility] Eosinophils Abs 0.2 0.0 - 0.4 x10(3)/mc L [facility] Basophil % 0.7 % [facility] Baso Absolute 0.0 0.0 - 0.1 x10(3)/mc L [facility] Immature Gran % 0.30 % [facility] Comment: Immature granulocytes(IG's)percentage and absolute count will include metamyelocytes, myelocytes, and promyelocytes. Blood smears from CBCs yielding IG's will be scanned manually for concordance. If this scan disagrees with the automated IG or if promyelocytes are noted, a manual differential will be performed. Immature Gran Absolute 0.02 0.00 - 0.04 x10(3)/mc L [facility] Blood 01/20/2023 4:12 AM EDT 01/20/2023 4:39 AM EDT Narrative Resulting Agency Comment Spec In Lab Gina HARRIS HEMATOLOGY ORDJes MCKNIGHT [facility] [place] [address] * (ABNORMAL) Hemogram (01/20/2023 4:12 AM EDT) Pathologist [facility] White Blood Cell 5.8 4.0 - 9.5 x10(3)/mc L [facility] Red Blood Cell 2.79(L) 4.00 - 5.21 x10(6)/mc L [facility] Hemoglobin 9.4(L) 11.7 - 15.5 g/dL [facility] Hematocrit 30.4(L) 35.7 - 45.8 % [facility] Mean Cell Volume 109.0(H) 82.6 - 94.4 fL [facility] Mean Cell Hemoglobin 33.7(H) 27.1 - 32.0 pg [facility] Mean Cell Hemoglobin Concentration 30.9(L) 31.7 - 35.0 g/dL [facility] Platelet 134(L) 145 - 357 x10(3)/mc L [facility] RDW Standard Deviation 67.7(H) 37.0 - 46.0 fL [facility] RDW coefficient of variation 16.6(H) 11.5 - 14.1 % [facility] Mean Platelet Volume 9.5 7.6 - 12.9 fL [facility] NRBC% auto 0.0 % [facility] NRBC Absolute 0.000 0.000 - 0.000 x10(3)/mc L [facility] Blood 01/20/2023 4:12 AM EDT 01/20/2023 4:39 AM EDT Narrative Resulting Agency Comment Spec In Lab Gina HARRIS HEMATOLOGY ORDJes MCKNIGHT [facility] [place] [address] * (ABNORMAL) Basic Metabolic Panel (non-fasting) (01/20/2023 4:12 AM EDT) Glucose 99 65 - 199 mg/dL [facility] Comment:Diabetes: >=200 mg/d L plus symptoms Blood Urea Nitrogen 15 8 - 18 mg/dL [facility] Creatinine 0.93 0.70 - 1.20 mg/dL [facility] Sodium 133(L) 135 - 145 mmol/L [facility] Potassium 4.5 3.5 - 5.0 mmol/L [facility] Comment: Please note: ??Patients with WBC >100,000 may have falsely elevated Potassium levels. ??For accurate Potassium quantification in these patients send serum separator tube (gold top) for subsequent determinations. ??Contact the Clinical Chemistry Laboratory if there are any questions. Chloride 99 98 - 107 mmol/L [facility] Carbon Dioxide 28 22 - 31 mmol/L [facility] Anion Gap 6 5 - 15 mmol/L [facility] Calcium 9.3 8.5 - 10.5 mg/dL [facility] Est Glomerular Filtration Rate 68 >=60 mL/min/1. 73 m?? [facility] Comment: This patient's estimated GFR [...] and symptoms in addition to eGFR. Blood 01/20/2023 4:12 AM EDT 01/20/2023 4:39 AM EDT Narrative Resulting Agency Comment Spec In Lab Edvin Sultana MD CHEMISTRY ORDERABLES [facility] [place] [address] * (ABNORMAL) Hemoglobin (01/19/2023 5:06 PM EDT) Hemoglobin 9.5(L) 11.7 - 15.5 g/dL [facility] Blood 01/19/2023 5:06 PM EDT 01/19/2023 5:19 PM EDT Narrative Resulting Agency Comment Spec In Lab Edvin Sultana MD HEMATOLOGY ORDERABLE S Performing Organization Address [facility] Co de Phone Number [facility] [place] [address] * Potassium (01/19/2023 5:06 PM EDT) Potassium 4.7 3.5 - 5.0 mmol/L [facility] Comment: Please note: ??Patients with WBC >100,000 may have falsely elevated Potassium levels. ??For accurate Potassium quantification in these patients send serum separator tube (gold top) for subsequent determinations. ??Contact the Clinical Chemistry Laboratory if there are any questions. Blood 01/19/2023 5:06 PM EDT 01/19/2023 5:19 PM EDT Narrative Resulting Agency Comment Spec In Lab Edvin Sultana MD CHEMISTRY ORDERABLES Performing Organization Address [facility] Co de Phone Number [facility] [place] [address] * ECHO LMTD W/O CONTRAST W LMTD SPEC DOPP COLOR DOPP (01/19/2023 2:36 PM EDT) Anatomical Region Laterality Modality Cardiac Other 01/19/2023 11:3 7 AM EDT Narrative 01/19/2023 2:47 PM EDT ? Echocardiogram Report Name: MONICA JARAMILLO ?Study Date: 01/19/2023 11:37 AMBP: 112/62 mmHg ? Patient Location: J[facility]^A : 1955 ? Height: 175 cm ? Account: [id number] Age: 67 yrs ? Weight: 91 kg Gender: Female ?BSA: 2.1 m2 Ordering Physician: EDVIN SULTANA Referring Physician: EDVIN SULTANA Performed By: Rolando Taylor BRIANDA Reason For Study: Guidance for TAVR procedure Exam Location: [facility]. Interpretation Summary Study performed for guidance of TAVR. PRE: Severe aortic stenoiss. LVEF 65%. Trivial posterior pericardial effusion. POST: Tino valve in the aortic position. Well seated with normal function, no regurgitation. Unchnaged LVEF. Unchanged pericardial effusion. RVSP 66 mmHg with normal RV function, mild to moderate tricuspid regurgitation. See report for additional findings. Procedure Limited - 91784. Doppler - 78802. Color Doppler - 79809. Left Ventricle Left ventricle is of normal size. Wall thickness is mildly increased. There is no left ventricular outflow tract obstruction. Left ventricular systolic function is normal. Left ventricular ejection fraction is estimated visually at 60-65%. Right Ventricle The right ventricle is of normal size. Right ventricular function is probably normal. Left Atrium The left atrium is severely dilated. Right Atrium The right atrium is mildly dilated. Aortic Valve The aortic prosthetic valve appears to be functioning normally. There is a transcatheter valve in the aortic position. The date or year of insertion is 01/19/2023. There is a 23 mm aortic prosthesis. The peak gradient across the prosthesis is 24 mmHg. The mean gradient across the prosthesis is 12 mmHg. There appears to be no paravalvular regurgitation. There appears to be no intravalvular regurgitation. Mitral Valve The mitral valve leaflets are thickened. There is no mitral stenosis. There is mild mitral regurgitation. Tricuspid Valve The tricuspid valve is structurally normal. There is mild to moderate tricuspid regurgitation. Great Arteries The aortic root is of normal size. No abnormalities are identified. The ascending aorta is dilated. The maximum diameter of the proximal ascending aorta is 4.2 cm. Pericardium/Pleural There is a trivial pericardial effusion. The pericardial effusion is posterior. Hemodynamics The peak right ventricular systolic pressure is 66 mmHg. Plus RA presssure. ? 2D Measurements ? Volumes ?IVSd: 1.3 cm ? LAV(MOD-bp) Indexed: ?LVIDd: 4.2 cm ?54.3 ml/m2 ?LVIDs: 3.0 cm ?LVPWd: 1.3 cm ?RA A4Cs_phl: 23.7 cm2 ?LV mass(C)d: 210.4 grams ? SV(LVOT): 83.7 ml ? CO(LVOT): 6.3 l/min ?LV mass(C)dI: 101.5 grams/m2 ?? LV Stroke Volume: 81.0 ml ?Ao root diam: 3.5 cm ? SI(LVOT): 40.4 ml/m2 ?Ao root diam index: 1.7 ?asc Aorta Diam: 4.2 cm ? CI(LVOT): 3.0 l/min/m2 ?LVOT diam: 2.0 cm Doppler TR max katie: 405.9 cm/sec LV V1 VTI: 25.9 cm LVOT max Velocity: 126.7 cm/sec Ao V2 VTI: 47.2 cm Ao Max: 243.4 cm/sec Ao valve max: 23.7 mmHg Ao valve mean: 12.0 mmHg ANAHY(I,D): 1.8 cm2 Dimensionless index Aov: 0.55 I ?WMSI = 1.00 ? % Normal = 100 ?Segments ??Size X - Cannot ?2 - ?4 - ?1-2 ? small Interpret ?1 - Normal ?? Hypokinetic 3 - Akinetic Dyskinetic ?? 3-5 ? moderate 5 - ? 6-14 ?large Aneurysmal ?15-16 ?? diffuse Procedure Note Wilfred Dozier MD - 01/19/2023 Echocardiogram Report Name: MONICA JARAMILLO Study Date: :37 AMBP: 112/62 mmHg Patient Location:J[facility]UA^A : 1955 Height: 175 cm Account: [id number] Age: 67 yrs Weight: 91 kg Gender: Female BSA: 2.1 m2 Ordering Physician: EDVIN SULTANA Referring Physician: EDVIN SULTANA Performed By: Rolando Taylor RDCS Reason For Study: Guidance for TAVR procedure Exam Location: [facility]. Interpretation Summary Study performed for guidance of TAVR. PRE: Severe aortic stenoiss. LVEF 65%. Trivial posterior pericardialeffusion. POST: Tino valve in the aortic position. Well seated with normalfunction, no regurgitation. Unchnaged LVEF. Unchanged pericardial effusion. RVSP 66mmHg with normal RV function, mild to moderate tricuspid regurgitation. See report for additional findings. Procedure Limited - 13688. Doppler - 66903. Color Doppler - 18796. Left Ventricle Left ventricle is of normal size. Wall thickness is mildly increased.There is no left ventricular outflow tract obstruction. Left ventricular systolicfunction is normal. Left ventricular ejection fraction is estimated visually at60-65%. Right Ventricle The right ventricle is of normal size. Right ventricular function isprobably normal. Left Atrium The left atrium is severely dilated. Right Atrium The right atrium is mildly dilated. Aortic Valve The aortic prosthetic valve appears to be functioning normally. There ellen transcatheter valve in the aortic position. The date or year of insertionis 01/19/2023. There is a 23 mm aortic prosthesis. The peak gradient acrossthe prosthesis is 24 mmHg. The mean gradient across the prosthesis is 12 mmHg.There appears to be no paravalvular regurgitation. There appears to be nointravalvular regurgitation. Mitral Valve The mitral valve leaflets are thickened. There is no mitral stenosis.There is mild mitral regurgitation. Tricuspid Valve The tricuspid valve is structurally normal. There is mild to moderatetricuspid regurgitation. Great Arteries The aortic root is of normal size. No abnormalities are identified. Theascending aorta is dilated. The maximum diameter of the proximal ascending aorta is4.2 cm. Pericardium/Pleural There is a trivial pericardial effusion. The pericardial effusion isposterior. Hemodynamics The peak right ventricular systolic pressure is 66 mmHg. Plus RApresssure. 2D Measurements Volumes IVSd: 1.3 cm LAV(MOD-bp)Indexed: LVIDd: 4.2 cm 54.3 ml/m2 LVIDs: 3.0 cm LVPWd: 1.3 cm RA A4Cs_phl: 23.7cm2 LV mass(C)d: 210.4 grams SV(LVOT): 83.7ml CO(LVOT): 6.3l/min LV mass(C)dI: 101.5 grams/m2 LV Stroke Volume:81.0 ml Ao root diam: 3.5 cm SI(LVOT): 40.4ml/m2 Ao root diam index: 1.7 asc Aorta Diam: 4.2 cm CI(LVOT): 3.0l/min/m2 LVOT diam: 2.0 cm Doppler TR max katie: 405.9 cm/sec LV V1 VTI: 25.9 cm LVOT max Velocity: 126.7 cm/sec Ao V2 VTI: 47.2 cm Ao Max: 243.4 cm/sec Ao valve max: 23.7 mmHg Ao valve mean: 12.0 mmHg ANAHY(I,D): 1.8 cm2 Dimensionless index Aov: 0.55 I WMSI = 1.00 % Normal = 100 SegmentsSize X - Cannot 2 - 4 - 1-2small Interpret 1 - Normal Hypokinetic 3 - Akinetic Dyskinetic 3-5moderate 5 - 6-14large Aneurysmal 15-16diffuse Edvin Sultana MD ECHO ORDERABLES * POCT Glucose (01/19/2023 11:57 AM EDT) Pathologist [facility] Glucose, POC 96 65 - 199 mg/dL [facility] Comment: Supplemental ranges: <140 mg/dL before meals <180 mg/dL all other times of the day Blood 01/19/2023 11:5 7 AM EDT 01/19/2023 11:57 AM EDT Edvin Sultana MD POINT OF CARE TEST O RDINDIANA Performing Organization Address City/[facility]/ZIP Co de Phone Number [facility] [place] [place] [address] * Prepare RBC (01/19/2023 11:50 AM EDT) Pathologist [facility] Dispensed? No [facility] Blood 01/19/2023 11:5 0 AM EDT 01/19/2023 11:49 AM EDT Edvin Sultana MD BLOOD [place]ANK [place] [address] * Type and Screen Validity (01/19/2023 10:24 AM EDT) T&S only valid at [facility] Comment:This Type and Screen result is only valid at the [facility] Blood 01/19/2023 10:2 4 AM EDT 01/19/2023 10:24 AM EDT Narrative Resulting Agency Comment Spec In Lab Edvin Sultana MD BLOOD BANK LAB ORDER DOM Performing Organization Address City/[facility]/ZIP Co de Phone Number [facility] [place] [address] * Scan, Peripheral Blood (01/19/2023 10:24 AM EDT) Plat estimate Normal [facility] RBC Morphology Abnormal [facility] Macrocyte 1-5 /HPF [facility] Hypochromia Slight [facility] Ovalocytes 1-5 /HPF [facility] Blood 01/19/2023 10:2 4 AM EDT 01/19/2023 10:28 AM EDT Narrative Resulting Agency Comment Spec In Lab Edvin Sultana MD HEMATOLOGY ORDERABLE S Performing Organization Address City/[facility]/ZIP Co de Phone Number [facility] [place] [address] * ABORH Recheck Status (01/19/2023 10:24 AM EDT) ABORH Type Recheck Completed [facility] Blood 01/19/2023 10:2 4 AM EDT 01/19/2023 10:24 AM EDT Narrative Resulting Agency Comment Spec In Lab Edvin Sultana MD BLOOD BANK LAB ORDER DOM Performing Organization Address City/[facility]/ZIP Co de Phone Number [facility] [place] [address] * (ABNORMAL) Differential, Automated (01/19/2023 10:24 AM EDT) Neutrophil % 68.1 % [facility] Neutrophil Absolute 3.00 1.70 - 6.10 x10(3)/mc L [facility] Lymph % 9.3 % [facility] Lymphocytes Abs 0.4(L) 0.9 - 3.2 x10(3)/mc L [facility] Monocyte % 11.4 % [facility] Monocyte Abs 0.5 0.3 - 0.9 x10(3)/mc L [facility] Eos % 9.8 % [facility] Eosinophils Abs 0.4 0.0 - 0.4 x10(3)/mc L [facility] Basophil % 0.9 % [facility] Baso Absolute 0.0 0.0 - 0.1 x10(3)/mc L [facility] Immature Gran % 0.50 % [facility] Comment: Immature granulocytes(IG's)percentage and absolute count will include metamyelocytes, myelocytes, and promyelocytes. Blood smears from CBCs yielding IG's will be scanned manually for concordance. If this scan disagrees with the automated IG or if promyelocytes are noted, a manual differential will be performed. Immature Gran Absolute 0.02 0.00 - 0.04 x10(3)/ L [facility] Blood 01/19/2023 10:2 4 AM EDT 01/19/2023 10:28 AM EDT Narrative Resulting Agency Comment Spec In Lab Edvin Sultana MD HEMATOLOGY ORDERABLE S Performing Organization Address City/State/[facility] Co de Phone Number [facility] [address] * (ABNORMAL) Hemogram (01/19/2023 10:24 AM EDT) White Blood Cell 4.4 4.0 - 9.5 x10(3)/mc L [facility] Red Blood Cell 2.98(L) 4.00 - 5.21 x10(6)/mc L [facility] Hemoglobin 10.1(L) 11.7 - 15.5 g/dL [facility] Hematocrit 32.7(L) 35.7 - 45.8 % [facility] Mean Cell Volume 109.7(H) 82.6 - 94.4 fL [facility] Mean Cell Hemoglobin 33.9(H) 27.1 - 32.0 pg [facility] Mean Cell Hemoglobin Concentration 30.9(L) 31.7 - 35.0 g/dL [facility] Platelet 160 145 - 357 x10(3)/mc L [facility] RDW Standard Deviation 68.6(H) 37.0 - 46.0 fL [facility] RDW coefficient of variation 16.9(H) 11.5 - 14.1 % [facility] Mean Platelet Volume 9.2 7.6 - 12.9 fL [facility] NRBC% auto 0.0 % [facility] NRBC Absolute 0.000 0.000 - 0.000 x10(3)/mc L [facility] Blood 01/19/2023 10:2 4 AM EDT 01/19/2023 10:28 AM EDT Narrative Resulting Agency Comment Spec In Lab Edvin Sultana MD HEMATOLOGY ORDERABLE S Performing Organization Address City/[facility]/ZIP Co de Phone Number [facility] [address] * Antibody screen (01/19/2023 10:24 AM EDT) Ab Screen Interp Negative [facility] Expires at [id number] on: 01/22/2023 [facility] Blood 01/19/2023 10:2 4 AM EDT 01/19/2023 10:24 AM EDT Narrative Resulting Agency Comment Spec In Lab Edvin Sultana MD BLOOD BANK LAB ORDER DOM Performing Organization Address City/[facility]/ZIP Co de Phone Number [facility] [address] * ABO/Rh Typing (01/19/2023 10:24 AM EDT) ABORH Type A Pos [facility] Blood 01/19/2023 10:2 4 AM EDT 01/19/2023 10:24 AM EDT Narrative Resulting Agency Comment Spec In Lab Edvin Sultana MD BLOOD BANK LAB ORDER DOM Performing Organization Address City/[facility]/ZIP Co de Phone Number [facility] [address] * Basic Metabolic Panel (non-fasting) (01/19/2023 10:24 AM EDT) Glucose 94 65 - 199 mg/dL [facility] Comment:Diabetes: >=200 mg/d L plus symptoms Blood Urea Nitrogen 16 8 - 18 mg/dL [facility] Creatinine 0.92 0.70 - 1.20 mg/dL [facility] Sodium 137 135 - 145 mmol/L [facility] Potassium 4.5 3.5 - 5.0 mmol/L [facility] Comment: Please note: ??Patients with WBC >100,000 may have falsely elevated Potassium levels. ??For accurate Potassium quantification in these patients send serum separator tube (gold top) for subsequent determinations. ??Contact the Clinical Chemistry Laboratory if there are any questions. Chloride 101 98 - 107 mmol/L [facility] Carbon Dioxide 28 22 - 31 mmol/L [facility] Anion Gap 8 5 - 15 mmol/L [facility] Calcium 9.9 8.5 - 10.5 mg/dL [facility] Est Glomerular Filtration Rate 69 >=60 mL/min/1. 73 m?? [facility] Comment: This patient's estimated GFR [...] and symptoms in addition to eGFR. Blood 01/19/2023 10:2 4 AM EDT 01/19/2023 10:28 AM EDT Narrative Resulting Agency Comment Spec In Lab Edvin Sultana MD CHEMISTRY ORDERABLES [facility] [place] [address] documented in this encounter Visit Diagnoses Diagnosis Severe aortic stenosis Aortic valve disorders S/P TAVR (transcatheter aortic valve replacement) Hypokalemia Hypopotassemia Aortic stenosis Aortic valve disorders Severe aortic stenosis Aortic valve disorders Thymic carcinoma Malignant neoplasm of thymus documented in this encounter Admitting Diagnoses Diagnosis Aortic stenosis Aortic valve disorders documented in this encounter Administered Medications Inactive Administered Medications - up to 3 most recent administrations Medication Order MAR Action Action Date Dose Rate Site acetaminophen (Tylenol) tablet 1,000 mg 1,000 mg, Oral, EVERY 6 HOURS PRN, Starting on Tue01/19/23 at 1416, Until Tue01/20/23 at 1455, Pain, For pain when taking by mouth. Maximum dose of acetaminophen is 4,000 mg from all sources in 24 hours. When ordered for pain, acetaminophen should be given even when other ordered pain medications are indicated., Routine Given 01/20/2023 9:26 AM EDT 1,000 mg Right Knee Given 01/19/2023 10:48 PM EDT 1,000 mg Given 01/19/2023 3:39 PM EDT 1,000 mg aMILoride (Midamor) tablet 5 mg 5 mg, Oral, DAILY, First dose on Tue01/20/23 at 0900, Until Discontinued, Routine Given 01/20/2023 9:26 AM EDT 5 mg apixaban (Eliquis) tablet 5 mg 5 mg, Oral, 2 TIMES DAILY, First dose on Tue01/20/23 at 0900, Until Discontinued, Anticoagulant, Routine, Restricted anticoagulant, choose the most appropriate response: Continuation of ongoing therapy Given 01/20/2023 9:28 AM EDT 5 mg aspirin chewable tablet 81 mg 81 mg, Oral, DAILY, First dose on Tue01/19/23 at 1515, Until Discontinued, Routine Given 01/20/2023 9:28 AM EDT 81 mg Given 01/19/2023 3:39 PM EDT 81 mg dilTIAZem CD (Cardizem CD) capsule 180 mg 180 mg, Oral, DAILY, First dose on Tue01/20/23 at 0945, Until Discontinued, DO NOT CRUSH OR OPEN, Routine Given 01/20/2023 9:28 AM EDT 180 mg folic acid (Vitamin B9) tablet 1 mg 1 mg, Oral, DAILY, First dose on Tue01/19/23 at 1515, Until Discontinued, Routine Given 01/20/2023 9:28 AM EDT 1 mg Given 01/19/2023 5:13 PM EDT 1 mg furosemide (Lasix) tablet 40 mg 40 mg, Oral, DAILY, First dose on Tue01/20/23 at 0945, Until Discontinued, Routine iohexoL (Omnipaque) (350 mg/mL) solution PRN, Starting on Tue01/19/23 at 1226, Until Tue01/19/23 at 1409, Intra-Operative (Intra-Procedure), Routine Given 01/19/2023 12:26 PM EDT 41 mLs levothyroxine (Synthroid) tablet 150 mcg 150 mcg, Oral, DAILY, First dose on Tue01/20/23 at 0900, Until Discontinued, Routine Given 01/20/2023 9:28 AM EDT 150 mcg ondansetron (pf) (Zofran) (2 mg/mL) injection 4 mg 4 mg, Intravenous, EVERY 8 HOURS PRN, Starting on Tue01/19/23 at 1416, Until Tue01/20/23 at 1455, Nausea, Routine Given 01/19/2023 5:13 PM EDT 4 mg pantoprazole EC (Protonix) tablet 40 mg 40 mg, Oral, DAILY, First dose on Tue01/19/23 at 1515, Until Discontinued, DO NOT CRUSH OR OPEN, Routine Given 01/20/2023 9:27 AM EDT 40 mg Given 01/19/2023 3:39 PM EDT 40 mg PARoxetine (Paxil) tablet 20 mg 20 mg, Oral, EVERY MORNING, First dose on Tue01/20/23 at 0700, Until Discontinued, DO NOT SPLIT, CRUSH OR OPEN, Routine Given 01/20/2023 7:50 AM EDT 20 mg sodium chloride 0.9 % (flush) (BD PosiFlush Normal Saline 0.9) flush 5 mL 5 mL, Intravenous, 2 TIMES DAILY, First dose on Tue01/19/23 at 2100, Until Discontinued, Routine Given 01/20/2023 9:30 AM EDT 5 mLs Given 01/19/2023 8:01 PM EDT 5 mLs documented in this encounter Active and Recently Administered Medications Times are shown in EDT. Scheduled Medication Order 01/18/2023 01/19/2023 01/20/2023 aMILoride (Midamor) tablet 5 mg 5 mg, Oral, DAILY, First dose on Tue01/20/23 at 0900, Until Discontinued, Routine 925 (Given - Provid er: Nikole Busch RN) apixaban (Eliquis) tablet 5 mg 5 mg, Oral, 2 TIMES DAILY, First dose on Tue01/20/23 at 0900, Until Discontinued, Anticoagulant, Routine, Restricted anticoagulant, choose the most appropriate response: Continuation of ongoing therapy 927 (Given - Provid er: Nikole Busch RN) aspirin chewable tablet 81 mg(Linked Group 1) 81 mg, Oral, DAILY, First dose on Tue01/19/23 at 1515, Until Discontinued, Routine 153 (Given - Provider: Eden Zavaleta RN) 927 (Given - Provider: Nikole Busch RN) dilTIAZem CD (Cardizem CD) capsule 180 mg 180 mg, Oral, DAILY, First dose on Tue01/20/23 at 0945, Until Discontinued, DO NOT CRUSH OR OPEN, Routine 927 (Given - Provid er: Nikole Busch RN) folic acid (Vitamin B9) tablet 1 mg 1 mg, Oral, DAILY, First dose on Tue01/19/23 at 1515, Until Discontinued, Routine 1713 (Given - Provider: Eden Zavaleta RN) 927 (Given - Provider: Nikole Busch RN) furosemide (Lasix) tablet 40 mg 40 mg, Oral, DAILY, First dose on Tue01/20/23 at 0945, Until Discontinued, Routine 09 (Not Given - Provider: Nikole Busch RN - Reason: Patient/family refused) levothyroxine (Synthroid) tablet 150 mcg 150 mcg, Oral, DAILY, First dose on Tue01/20/23 at 0900, Until Discontinued, Routine 927 (Given - Provid er: Nikole Busch RN) pantoprazole EC (Protonix) tablet 40 mg(Linked Group 2) 40 mg, Oral, DAILY, First dose on Tue01/19/23 at 1515, Until Discontinued, DO NOT CRUSH OR OPEN, Routine 153 (Given - Provider: Eden Zavaleta RN) 926 (Given - Provider: Nikole Busch RN) PARoxetine (Paxil) tablet 20 mg 20 mg, Oral, EVERY MORNING, First dose on Tue01/20/23 at 0700, Until Discontinued, DO NOT SPLIT, CRUSH OR OPEN, Routine 0750 (Given - Provid er: Nikole Busch RN) senna-docusate (Pericolace) 8.6-50 mg per tablet 2 tablet 2 tablet, Oral, DAILY, First dose on Ivette 01/20/23 at 2100, Until Discontinued, Post-op day 1, Routine sodium chloride 0.9 % (flush) (BD PosiFlush Normal Saline 0.9) flush 5 mL 5 mL, Intravenous, 2 TIMES DAILY, First dose on Tue01/19/23 at 2100, Until Discontinued, Routine 2000 (Given - Provider: Devi Leon RN) 929 (Given - Provider: Nikole Busch, SEBASTIAN) Continuous Medication Order 01/18/2023 01/19/2023 01/20/2023 sodium chloride 0.9% infusion () 100 mL/hr, Intravenous, CONTINUOUS, Starting on Tue01/19/23 at 1315, Until Tue01/19/23 at 1814, Recovery (Recovery-Hospital Unit) 1326 (New Bag - Provider: Sa ra Jes Verma RN)1900 (Stopped - Provider: Eden Zavaleta RN) PRN Medication Order 01/18/2023 01/19/2023 01/20/2023 acetaminophen (Tylenol) tablet 1,000 mg 1,000 mg, Oral, EVERY 6 HOURS PRN, Starting on Tue01/19/23 at 1416, Until Ivette 01/20/23 at 1455, Pain, For pain when taking by mouth. Maximum dose of acetaminophen is 4,000 mg from all sources in 24 hours. When ordered for pain, acetaminophen should be given even when other ordered pain medications are indicated., Routine 1539 (Given - Provider: Eden Zavaleta RN)8 (Given - Provider: Devi Leon RN) 09 (Given - Provider: Nikole Busch, SEBASTIAN) bisacodyL (Dulcolax) suppository 10 mg 10 mg, Rectal, DAILY PRN, Starting on 01/22/23 at 0000, Until Ivette 01/20/23 at 1455, Constipation, Starting post-op day 3., Routine iohexoL (Omnipaque) (350 mg/mL) solution (CANCELED) PRN, Starting on Tue01/19/23 at 1226, Until Tue01/19/23 at 1409, Intra-Operative (Intra-Procedure), Routine 1226 (Given - Provider: Edvni Sultana MD) lidocaine (Xylocaine) 1% (10 mg/mL) injection 3 mg 3 mg (0.3 mL), Subcutaneous, ONCE PRN, 1 dose, Starting on Tue01/19/23 at 1416, Until Ivette 01/20/23 at 1455, for discomfort with PIV insertion, Routine magnesium hydroxide (Milk of Magnesia) (80mg/mL) oral liquid 30 mL 30 mL, Oral, DAILY PRN, Starting on Tue01/19/23 at 1416, Until Ivette 01/20/23 at 1455, Constipation, 30 mL regular (400 mg/5 mL) = 10 mL concentrate (2400 mg/10 mL), Routine ondansetron (pf) (Zofran) (2 mg/mL) injection 4 mg 4 mg, Intravenous, EVERY 8 HOURS PRN, Starting on Tue01/19/23 at 1416, Until Ivette 01/20/23 at 1455, Nausea, Routine 1713 (Given - Provider: Eden Zavaleta RN) sodium chloride 0.9 % (flush) (BD PosiFlush Normal Saline 0.9) flush 5-20 mL 5-20 mL, Intravenous, EVERY 1 MIN PRN, Starting on Tue01/19/23 at 1416, Until Ivette 01/20/23 at 1455, flush, Flush pertains to all indwelling lines. Flush per protocol found in the job aid using the link provided on this medication record., Routine Linked Groups Order Group 1: aspirin chewable tablet 81 mgJump to med 81 mg, Oral, DAILY, First dose on Tue01/19/23 at 1515, Until Discontinued, Routine Or aspirin suppository 300 mg (CANCELED) 300 mg, Rectal, DAILY, First dose on Tue01/19/23 at 1515, Until Discontinued, Give UT if unable to take PO, Routine Group 2: pantoprazole EC (Protonix) tablet 40 mgJump to med 40 mg, Oral, DAILY, First dose on Tue01/19/23 at 1515, Until Discontinued, DO NOT CRUSH OR OPEN, Routine Or pantoprazole (Protonix) injection 40 mg (CANCELED) 40 mg, Intravenous, DAILY, First dose on Tue01/19/23 at 1515, Until Discontinued, Reconstitute with 10 mL of normal saline to a concentration of 4 mg/mL and inject slowly over 2 minutes. 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
--- OUTSIDE RECORDS SUMMARY | 2024-02-24 01:14 | XMS_ITS | Encounter Summary ---
Author Organization [facility] Address [facility] [place] [address] Care Team Providers Care Office Services Coordinator Name Role Phone Jerzy Vidal MD Primary Care Provider [phone] Encounter Details Date Type Department Care Team (Latest Contact Info) Description 04/29/2023 Travel Social History Tobacco Use Types Packs/Day [...] 9:00 AM EDT Office Visit Hematology/Oncology at [address] [phone] Shon Schneider MD [facility] [place] [address] Ciara Pitts APRN [address] [place] [address] [place] [address] 02/24/2024 9:30 AM EDT Infusion Hematology Oncology at [address] [phone] 03/02/2024 11:00 AM EDT Office Visit Hematology/Oncology at [address] [phone] Shon Schneider MD [facility] [place] [address] HEMATOLOGY AND ONCOLOGY [place], [place] [id number] 03/02/2024 12:30 PM EDT Infusion Hematology Oncology at [address] [phone] 03/09/2024 10:00 AM EDT Office Visit Hematology/Oncology at [address] [phone] Shon Schneider MD [facility] [place] [address] [place] [address] 03/09/2024 10:30 AM EDT Infusion Hematology Oncology at [address] [phone] documented as of this encounter Goals Goal Patient Goal Type Associated Problems Recent Progress Patient-Stated? Author DH Home Medication Compliance and Understanding Patient Facing Action Plan On track( 019 3:22 PM EST) Ivana Ashraf, [facility] Note: Remain 95% or better adherent to chemotherapy without severe side effects as assessed by days supply and patient reported adverse events at each refill documented as of this encounter Visit Diagnoses Not on filedocumented in this encounter Care Teams Office Services Coordinator Relationship Specialty Start Date End Date Jerzy Vidal MD [address] [place] [address] [place] [address] PCP - [facility] Medicine 12/04/18 documented as of this encounter
--- OUTSIDE RECORDS SUMMARY | 2024-02-24 01:14 | XMS_ITS | Encounter Summary ---
Author Organization [facility] [place] [address] Care Team Providers Care Plastics Spreading Machine Operator Name Role Phone Jerzy Vidal MD Primary Care Provider [phone] Encounter Details Date Type Department Care Team (Late st Contact Info) Description 01/26/2023 1:30 PM EDT TH Visit (TeleHealth) Hematology/Oncology at [address] [phone] Ciara Pitts APRN [address] [place] [address] HEMATOLOGY [place] [address] Thymic carcinoma; High risk medication use Social History Tobacco Use Types Packs/Day Years [...] as of this encounter Progress Notes * Ciara Pitts APRN - 01/26/2023 1:30 PM EDT Subjective: Patient ID: Monica Jaramillo is 67 y.o. Problem List: 1. Thymic carcinoma, stage IV A. Presented to the ED with increasing SOB, h/o atrial fibrillation on apixaban. CT was done with PE protocol and she was found to have an anterior mediastinal mass measuring 8.8 x 8.8 x 4.8 cm and a moderately large sized left pleural effusion with compression atelectasis. transferred to [facility] for further evaluation and workup and [...] B. Biopsy of mediastinal mass 03/29 Path ([facility] review) - Mediastinum, mass, biopsy: 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 [facility] - CONSULT SLIDES FROM [facility]; [place], [place]: A. MEDIASTINUM, MASS, BIOPSY ([id number]; 03/22/2017): MALIGNANT THYMIC EPITHELIAL NEOPLASM consistent with THYMIC CARCINOMA, NON-KERATINIZING SQUAMOUS CELL TYPE; see NOTE. Immunohistochemistry performed at the outside institution and reviewed at [facility] demonstrates the following staining profile in lesional cells: Positive - AE1/AE3, p40, PAX8, CD117, CD5(multifocal), CK7(scattered cells), synaptophysin, chromogranin Negative - CK20, TTF-1, GATA3, CD34 The immunohistochemical profile supports the above diagnosis. Ki67 (MIB-1) proliferation index performed at the referring institution and reviewed at [facility] is focally up to ~30%. 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 The extent of PAX8 and CD117 staining would be unusual for Nut carcinoma. B. MEDIASTINUM, ANTERIOR, 4.5 CM, ULTRASOUND GUIDED FINED NEEDLE ASPIRATION ([id number]; 03/22/17): The cytologic preparations were not reviewed [...] Second opinion with Dr. Roddy Vega in [place]. They reviewed the pathology and concurred they [...] therapy with pembrolizumab L. CT c/a/p 11/06/19 ([facility] second read) - IMPRESSION 1. Worsening left-sided [...] 5. No change in other incidental findings 2. H/o atrial fibrillation 3. HTN 4.Severe [...] There is a small posterior pericardial effusion. TAVR - 01/19/23 HPI Monica Jaramillo is seen in f/u thymic carcinoma. The history is summarized above. [place] and I are meeting via zoom today. She is feeling well overall. She had her TAVR last week andis recovering well. She feels like nothing happened. She is up an around, she is eating well. Herlasix is down to 40mg now and she is still peeing like Crazy. She thinks the new valve is helpingto get fluid off. Her leg swelling is much improved and she can now cross her legs. She is having no SOB, though she was told she had a pleural effusion while admitted but wanted to wait and see how she did before she agreed to a thoracentesis. Energy has been good. She is ambulatory with a walker, this is her baseline. She has not had any falls. 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 Fam Hx: No h/o cancer Review of Systems Constitutional: Negative for activity change, appetite change, fatigue, fever and unexpected weightchange. HENT: Negative. Respiratory: Negative for cough and shortness of breath. Cardiovascular: Positive for leg swelling (Significantly improved). Negative for chest pain. Gastrointestinal: Negative for abdominal distention and abdominal pain. Genitourinary: Negative. Musculoskeletal: Negative. Neurological: Negative. Hematological: Negative. Psychiatric/Behavioral: Negative. All other systems reviewed and are negative. Objective: Physical Exam Constitutional: General: She is not in acute distress. Neurological: General: No focal deficit present. Mental Status: She is alert and oriented to person, place, and time. Psychiatric: Mood and Affect: Mood normal. Behavior: Behavior normal. There were no vitals taken for this visit. Labs: Lab Results Component Value Date WBC 5.8 01/20/2023 RBC 2.79 (L) 01/20/2023 HGB 9.4 (L) 01/20/2023 HCT 30.4 (L) 01/20/2023 MCV 109.0 (H) 01/20/2023 MCH 33.7 (H) 01/20/2023 MCHC 30.9 (L) 01/20/2023 PLATELET 134 (L) 01/20/2023 RDWCV 16.6 (H) 01/20/2023 (01/06/23): WBC/ANC - 4.07/2399, Hgb/Hct - 10.1/32.7, MCV - 108.6, Plts - 181,000. BUN/Cr - 18/1.04. CO2 - 33, alb - 3.0. Lytes and LFTs o/w unremarkable Retic 3.8% (12/30/22): WBC/ANC - 3.8/, Hgb/Hct - 8.6/27.8, [...] 1.52 06/16/22 3.813 1.26 09/15/22 5.418 1.39 EPO (2.6-18.5) 11/05/21 121 08/21/21 52.3 06/19/21 [...] mg/day) Assessment and Plan: Monica Jaramillo is 66 yo, seen in f/u of thymic carcinoma, [...] carboplatin plus paclitaxel was stopped in 05/30. Changing therapy to pembrolizumab was discussed. However, this was not approved by her insurance company as pembrolizumab was not at that time included on the NCCN list of recommended therapies. An appeal letter with supporting phase II data was submitted, and Dr. Schneider did a peer to peer review (Dr. Osborn) for this. This was not approved at that time. The recommendation was to proceed with one of the NCCN recommended second line therapies for thymic carcinoma. If/when she has progression on that, it was suggested that we re-apply for the pembrolizumab. Dr. Vega at [facility] was consulted. There were no clinical trials available there. [...] that she had slow progression of disease. Options were discussed, including continuing the sutent for a longer period of time vs changing to immunotherapy with pembrolizumab. Of note, she has recently had more problems with myelosuppression, pancytopenia, which is likely to limit our ability to [...] potentially serious and sometimes fatal autoimmune effects, including myocarditis, among others. Baseline ECG and Echo were [...] increase in a small left pleural effusion. Dr. Schneider reviewed the images as well and it did appear that there was progession of the pleural disease. Given this, the pembrolizumab was stopped. Dr. Schneider attempted to get lenvatinib but this was denied by her insurance. Dr. Schneider spoke with Dr. Beckman from [place]. His suggestion was to try gemcitabine plus capecitabine. He also spoke with Dr. Shon Ramon at [facility]. He agreed that gemcitabine [...] main mass is about the same but there was concern that the other findings are indicative of disease progression. Therefore stopped the gemcitabine/capecitabine was discontinued. Options, including lenvatinib and pemetrexed, were discussed. Started lenvatinib 24 mg PO daily on 08/18/20. Restaging CT scan 10/28/20 - improvement in the pleural disease and pleural effusions. The most recent CT, done 02/10/21 showed a similar picture, ie stable mediastinal mass and epicardial LN with decrease in pleural effusion. She continued the lenavtinib at the same dose. When seen on 02/20/21, there was concern that she had become polycythemic. The WBC and Plts were notelevated. 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 For further evaluation, we checked an EPO level, JAK2 and BCR/ABL PCR. The results are above. There was no evidenceof MPD. 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 The reason for elevatedEPO level is not clear. Her oxygen saturation has been in the high 90s. She does not smoke. Carboxyhemoglobin level WNL. Possibilities include things like YESSENIA, HENRY, EPO producing tumor. There is a case report of erythrocytosis associated with lenvatinib use. The mechanism is not made clear in the abstract and I am not able to access the full article. There are reports of other TKIs being associated with erythrocytosis although in at least one of those references, it does not appear that EPO elevation is the cause. Another possibility is that this the cancer is producing EPO. The Hgb was elevated again. The EPO level from 08/2021 had increased. She was asked to discontinue the lenvatinib on 04/17/21. Recheck of the CBC showed normalization of the Hgb. The lenvatinib was restarted at 14 mg per day on 05/02/21. She tolerated this well. The EPOlevel has decreased although the decrease has lagged [...] related to treatment or not is unclear. It was decidedto continue the lenvima and repeat a chest CT. The CT was done on 12/13/21 and showed marked improvement in the effusions. When seen on 12/18/21 she had a significant rash which had the appearance of erythema multiforme. This was felt most likely to be related to the lenvantinib. She was told to stop this and was started on a prednisone burst. The rash improved, the itching resolved. Given the apparent reaction to lenvatinib, we would not rechallenge with that. Other options [...] cytology from the thoracentesis is negative. She had significant edema which may be a side effect of the everolimus as well as myelosuppresison. A CT c/a/p was done on 04/05/22. The anterior mediastinal mass appeared stable. The most significant change was an increase in bilateral pleural effusions and anasarca. She had a left thoracentesis on 04/12/22, cytology negative. The lasix dose was changed to 80 mg once a day. She is noticing more output with this and also saysthe LE edema is slowly improving. The everolimus has been on hold since 03/12/22 and there is no plan to restart that. This can be associated with edema and per case reports, may take several weeks toa few months to improve. She will continue the oral potassium at the same dose. Overall, the LE edema improved, although did not resolved. A CT was done on [...] are case reports of pemetrexed related hemolysis. We did not see that a bilirubin or other evaluation for hemolysis was done. The Hgb improved.Haptoglobin, DEBRA and reticulocyte count were done on 09/17/22. There was no indication of hemolysis although her Hgb was better by that time. A restaging CT scan was done on 10/06/22 - stable (report above) On 10/08/22 she received another dose of pemetrexed, dose reduced by 50%. Monica was admitted to [facility] from 10/22 to 11/07/22. She had presented [...] 191,000, Hgb- 7.6. The anemia has improved. The MCV has increased over time. A restaging CT scan was done on 01/06/23. There does not appear to be any evidence of disease progression. The effusions, anasarca and peritoneal fluid are likely related to heart failure. The subcutaneous nodule mentioned on the right corresponds with an area of trauma. She had a TAVR done on 01/19/23 with a one night stay as per policy. She seems to have tolerated thiswell. In terms of the cancer, given the stability of the scan, The plan is to continue to observe. She isanxious to resume therapy as soon as she is able, so given this, we will plan to repeat her CT scanin 3 weeks and see her to review results and plan next steps in 4 weeks. She did not get labs done for today's visit, but she did have a CBC done during her admission for her TAVR, and that is stable. We will repeat her labs prior to her 4 week return appointment. documented in this encounter Plan of Treatment Upcoming Encounters Date Type Department Care Team (Late st Contact Info) Description 02/24/2024 9:00 AM EDT Office Visit Hematology/Oncology at [address] [phone] Shon Schneider MD [facility] [place] [address] Ciraa Pitts APRN [address] [place] [address] DR HEMATOLOGY [place] [address] 02/24/2024 9:30 AM EDT Infusion Hematology Oncology at [address] [phone] 03/02/2024 11:00 AM EDT Office Visit Hematology/Oncology at [address] [phone] Shon Schneider MD [facility] [place] [address] Ciara Pitts, [address] HEMATOLOGY AND ONCOLOGY [place], [place] [id number] 03/02/2024 12:30 PM EDT Infusion Hematology Oncology at [address] [phone] 03/09/2024 10:00 AM EDT Office Visit Hematology/Oncology at [address] [phone] Shon Schneider MD [facility] [place] [address] [address] HEMATOLOGY AND ONCOLOGY [place], [place] [phone] 03/09/2024 10:30 AM EDT Infusion Hematology Oncology at [address] [phone] documented as of this encounter Goals Goal Patient Goal Type Associated Problems Recent Progress Patient-Stated? Author DH Home Medication Compliance and Understanding Patient Facing Action Plan On track( 019 3:22 PM EST) Ivana Ashraf, [facility] Note: Remain 95% or better adherent to chemotherapy without severe side effects as assessed by days supply and patient reported adverse events at each refill documented as of this encounter Visit Diagnoses Diagnosis Thymic carcinoma Malignant neoplasm of thymus High risk medication use Encounter for long-term (current) use of other medications Thymic carcinoma Malignant neoplasm of thymus documented in this encounter Care Teams Plastics Spreading Machine Operator Relationship Specialty Start Date End Date Jerzy Vidal MD [address] [place] [address] [place] [address] PCP - [facility] Medicine 12/04/18 documented as of this encounter
--- OUTSIDE RECORDS SUMMARY | 2024-02-24 01:14 | XMS_ITS | Encounter Summary ---
Author Organization [facility] Address [facility] [place] [address] Care Team Providers Care Office Services Manager Name Role Phone Jerzy Vidal MD Primary Care Provider Reason for Referral * Diagnostic Test (Routine) - New Request Specialty Diagnoses / Procedures Referred By Franklyn del rio Referred To Contact Radiology Diagnoses Thymic carcinoma Procedures CT Chest w Contrast Shon Schneider MD [facility] [place] [address] Referral ID Status Reason Start Date Expiration Date Visits Requested Visits Authorized [id number] New Request Specialty Service Requested 3 10/27/2024 1 1 Encounter Details Date Type Department Care Team (Late st Contact Info) Description 04/29/2023 1:00 PM EST Office Visit Hematology/Oncology at [address] [phone] Shon Schneider MD [facility] [place] [address] Ciara Pitts APRN [address] [place] [address] DR HEMATOLOGY AND ONCOLOGY [place], [place] [id number] Thymic carcinoma Social History Tobacco Use Types Packs/Day Years [...] Sign Reading Time Taken Comments Blood Pressure 132/60 04/29/2023 12:54 PM EST Pulse 68 04/29/2023 12:54 PM EST Temperature 36.5 ??C (97.7 ??F) 04/29/2023 12:[address] Respiratory Rate 18 04/29/2023 12:54 PM EST Oxygen Saturation 99% 04/29/2023 12:54 PM EST Inhaled Oxygen Concentration - - Weight 97.7 kg (215 lb 6.4 oz) 04/29/2023 12:54 PM EST Height 172.7 cm (5' 7.99) 04/29/2023 12:[address] Body Mass Index 32.76 04/29/2023 12:54 PM EST documented in this encounter Progress Notes * Shon Schneider MD - 04/29/2023 1:00 PM EST Subjective: Patient ID: Monica Jaramillo is 67 [...] pleural effusion with compression atelectasis. transferred to [facility] for further evaluation and workup [...] B. Biopsy of mediastinal mass 03/29 Path ([facility] review) - Mediastinum, mass, biopsy: 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 [facility] - CONSULT SLIDES FROM [facility]; [place], [place]: A. MEDIASTINUM, MASS, BIOPSY ([id number]; 03/22/2017): MALIGNANT THYMIC EPITHELIAL NEOPLASM consistent with THYMIC CARCINOMA, NON-KERATINIZING SQUAMOUS CELL TYPE; see NOTE. Immunohistochemistry performed at the outside institution and reviewed at [facility] demonstrates the following staining profile in lesional cells: Positive - AE1/AE3, p40, PAX8, CD117, CD5(multifocal), CK7(scattered cells), synaptophysin, chromogranin Negative - CK20, TTF-1, GATA3, CD34 The immunohistochemical profile supports the above diagnosis. Ki67 (MIB-1) proliferation index performed at the referring institution and reviewed at [facility] is focally up to ~30%. 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 The extent of PAX8 and CD117 staining would be unusual for Nut carcinoma. B. MEDIASTINUM, ANTERIOR, 4.5 CM, ULTRASOUND GUIDED FINED NEEDLE ASPIRATION ([id number]; 03/22/17): The cytologic preparations were not reviewed [...] Second opinion with Dr. Roddy Vega in [place]. They reviewed the pathology and concurred they [...] therapy with pembrolizumab L. CT c/a/p 11/06/19 ([facility] second read) - IMPRESSION 1. [...] the interval, suggestive of some interval progression. 2. H/o atrial fibrillation 3. HTN 4.Severe [...] thymic carcinoma. The history is summarized above. She is accompanied to clinic today by her daughter Cass. She is feeling well overall. She underwent TAVR on 01/19/23. Her LE edema is better. Toward the end of the day she still has some ankle edemaif she has been up most of the day. No SOB. She is doing well at home. She is ambulatory with a walker because of her knee issues. She is back to cooking and doing other things. She has gained weight. Soc Hx: , lives in [place], [place] Tob - Never Etoh - rare [...] reviewed and are negative. Objective: Physical Exam Vitals reviewed. HENT: Head: Normocephalic and atraumatic. Eyes: General: No scleral icterus. Pulmonary: Effort: No respiratory distress. Skin: General: Skin is warm and dry. Neurological: Mental Status: She is alert. Psychiatric: Mood and Affect: Mood normal. Labs: (04/26/23) WBC/ANC - 5.12/3699, Hgb/Hct - 11.4/35.2, [...] - 17.8/50, Plts - 151,000. BUN/Cr - 04/13.3. Na - 133, Mg - 1.4, Alb [...] pembrolizumab. I spoke with Dr. Vega at [facility]. There were no clinical trials available [...] also spoke with Dr. Shon Ramon at [facility] [place]. He agreed that gemcitabine plus capecitabine is [...] reduced by 50%. Monica was admitted to [facility] from 10/22 to 11/07/22. She [...] and the changes are small, the decision today was to hold off on therapy and see her again in June with a CT scan. documented in this encounter Plan of Treatment Upcoming Encounters Date Type Department Care Team (Late st Contact Info) Description 02/24/2024 9:00 AM EDT Office Visit Hematology/Oncology at [address] [phone] Shon Schneider MD [facility] [place] [address] Ciara Pitts APRN [address] [place] [address] 02/24/2024 9:30 AM EDT Infusion Hematology Oncology at [address] [phone] 03/02/2024 11:00 AM EDT Office Visit Hematology/Oncology at [address] [phone] Shon Schneider MD [facility] [place] [address] [address] HEMATOLOGY AND ONCOLOGY [place], [place] [address] 03/02/2024 12:30 PM EDT Infusion Hematology Oncology at [address] [phone] 03/09/2024 10:00 AM EDT Office Visit Hematology/Oncology at [address] [phone] Shon Schneider MD [facility] [place] [address] [address] HEMATOLOGY AND ONCOLOGY [place], [place] [id number] 03/09/2024 10:30 AM EDT Infusion Hematology Oncology at [address] [phone] Scheduled Orders Name Type Priority Associated Diagnoses Orde r Schedule CBC (with Diff) Lab Routine Thymic carcinoma Expected: 06/29/2023 (Approximate), Expires: 12/29/2023 Comprehensive metabolic panel (non-fasting) Lab Routine Thymic carcinoma Expected: 06/29/2023 (Approximate), Expires: 12/29/2023 CT Chest w Contrast Imaging Routine Thymic carcinoma Expected: 06/29/2023 (Approximate), Expires: 12/29/2023 documented as of this encounter Goals Goal Patient Goal Type Associated Problems Recent Progress Patient-Stated? Author DH Home Medication Compliance and Understanding Patient Facing Action Plan On track( 019 3:22 PM EST) No Ivana Vanegas, [facility] Note: Remain 95% or better adherent to chemotherapy without severe side effects as assessed by days supply and patient reported adverse events at each refill documented as of this encounter Visit Diagnoses Diagnosis 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 documented in this encounter Care Teams Office Services Manager Relationship Specialty Start Date End Date Jerzy Vidal MD [address] [place] [address] [place] [address] PCP - [facility] Medicine 12/04/18 documented as of this encounter
--- OUTSIDE RECORDS SUMMARY | 2024-02-24 01:14 | XMS_ITS | Encounter Summary ---
Author Organization [facility] [place] [address] Care Team Providers Care Manhole Stripper Name Role Phone Jerzy Vidal MD Primary Care Provider [phone] Encounter Details Date Type Department Care Team (Late Contact Info) Description 04/26/2023 9:25 PM EST Ancillary Procedure [place] [phone] Shon Schneider MD [facility] [place] [address] Social History Tobacco Use Types Packs/Day Years [...] 9:00 AM EDT Office Visit Hematology/Oncology at [address] [phone] Shon Schneider MD [facility] [place] [address] [address] [place] [address] 02/24/2024 9:30 AM EDT Infusion Hematology Oncology at [address] [phone] 03/02/2024 11:00 AM EDT Office Visit Hematology/Oncology at [address] [phone] Shon Schneider MD [facility] [place] [address] [address] [place] [address] 03/02/2024 12:30 PM EDT Infusion Hematology Oncology at [address] [phone] 03/09/2024 10:00 AM EDT Office Visit Hematology/Oncology at [address] [phone] Shon Schneider MD [facility] [place] [address] [address] HEMATOLOGY AND ONCOLOGY [place], [place] [id number] 03/09/2024 10:30 AM EDT Infusion Hematology Oncology at [address] [phone] documented as of this encounter Goals Goal [...] FILM LIBRARY STORAGE ONLY CT CHEST Routine 04/26/2023 9:20 PM EST documented in this encounter Results * Film Library- Storage Only CT Chest (04/26/2023 9:20 PM EST) Narrative RAD - 04/26/2023 9:20 PM EST This exam is auto-finalizing. It's purpose is for storage only. Shon Schneider MD IMG FILM LIBRARY ORD ERABLES Performing Organization Address City/State/[facility] Co de Phone Number [place], [place] documented in this encounter Visit Diagnoses Not on filedocumented in this encounter Care Teams Manhole Stripper Relationship Specialty Start Date End Date Jerzy Vidal MD [address] [place] [address] [place] [address] PCP - [facility] Medicine 12/04/18 documented as of this encounter
--- OUTSIDE RECORDS SUMMARY | 2024-02-24 01:14 | XMS_ITS | Encounter Summary ---
Author Organization [facility] Address [facility] [place] [address] Care Team Providers Care Alarm Signal Operator Name Role Phone Jerzy Vidal MD Primary Care Provider [phone] Encounter Details Date Type Department Care Team (Late st Contact Info) Description 03/01/2023 10:00 AM EDT TH Visit (TeleHealth) Hematology/Oncology at [address] [phone] Shon Schneider MD [facility] [place] [address] Thymic carcinoma Social History Tobacco Use Types [...] Progress Notes * Shon Schneider MD - 03/01/2023 10:00 AM EDT Subjective: Patient ID: Monica Jaramillo [...] B. 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 [facility] - CONSULT SLIDES FROM [facility]; [place], [place]: A. 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 Immunohistochemistry performed at the outside institution and reviewed at [facility] demonstrates the following staining profile in lesional cells: Positive - AE1/AE3, p40, PAX8, CD117, CD5(multifocal), CK7(scattered cells), synaptophysin, chromogranin Negative - CK20, TTF-1, GATA3, CD34 The immunohistochemical profile supports the above diagnosis. Ki67 (MIB-1) proliferation index performed at the referring institution and reviewed at [facility] is focally up to ~30%. 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 The extent of PAX8 and CD117 staining would be unusual for Nut carcinoma. B. MEDIASTINUM, ANTERIOR, 4.5 CM, ULTRASOUND GUIDED FINED NEEDLE ASPIRATION ([id number]; 03/22/17): The cytologic preparations were not reviewed [...] Second opinion with Dr. Roddy Vega in [place]. They reviewed the pathology and concurred they [...] therapy with pembrolizumab L. CT c/a/p 11/06/19 ([facility] second read) - IMPRESSION [...] without causing bowel obstruction. 4. Fibroid uterus 2. H/o atrial fibrillation 3. HTN 4.Severe [...] thymic carcinoma. The history is summarized above. This is a TeleHealth visit. She is feeling well overall. She underwent TAVR on 01/19/23. Her LE edemais better. Toward the end of the day she still has some ankle edema if she has been up most of the day. The swelling around the abdomen and hips is better. No SOB. She is doing well at home. She is ambulatory with a walker because of her knee issues. She is back to cooking and doing other things. Soc Hx: , lives in [place], [place] Tob - Never Etoh - rare [...] Physical Exam HENT: Head: Normocephalic and atraumatic. Neurological: Mental Status: She is alert. Labs: (02/24/23): WBC/ANC - 4.8/, Hgb/Hct - 10.4/31.9, [...] pembrolizumab. I spoke with Dr. Vega at [facility]. There were no clinical trials available [...] also spoke with Dr. Shon Ramon at [facility] [place]. He agreed that gemcitabine plus capecitabine is [...] reduced by 50%. Monica was admitted to [facility] from 10/22 to 11/07/22. [...] underwent TAVR on 01/19/23. A restaging CT scan was done on 02/24/23, report above. This was read as stable. I reviewed this with radiology. I agree that the thymic mass is stable. The right pleural effusion is a little smaller,likely related to improvement in heart failure management. There are however a couple of left sidedpulmonary nodules that look a little larger. I am uncertain as to the relationship of these to the cancer. It looks like there were nodular opacities in this area on a CT in 12/2021 which were gone in03/2022 despite no change in therapy. We have talked about starting weekly paclitaxel which is an option, as is observing for a little longer with a short term f/u CT in 6-8 weeks. We talked about things are going to hold off on treatment for now and recheck a CT in 6 weeks or so. documented in this encounter Plan of Treatment Upcoming Encounters Date Type Department Care Team (Late st Contact Info) Description 02/24/2024 9:00 AM EDT Office Visit Hematology/Oncology at [address] [phone] Shon Schneider MD [facility] [place] [address] Ciara Pitts APRN [address] [place] [address] DR HEMATOLOGY AND ONCOLOGY [place], [place] [address] 02/24/2024 9:30 AM EDT Infusion Hematology Oncology at [address] [phone] 03/02/2024 11:00 AM EDT Office Visit Hematology/Oncology at [address] [phone] Shon Schneider MD [facility] [place] [address] [address] HEMATOLOGY AND ONCOLOGY [place], [place] [phone] 03/02/2024 12:30 PM EDT Infusion Hematology Oncology at [address] [phone] 03/09/2024 10:00 AM EDT Office Visit Hematology/Oncology at [address] [phone] Shon Schneider MD [facility] [place] [address] [address] HEMATOLOGY [place] [address] 03/09/2024 10:30 AM EDT Infusion Hematology Oncology at [address] [phone] Scheduled Orders Name Type Priority Associated Diagnoses Orde r Schedule CBC (with Diff) Lab Routine Thymic carcinoma Expected: 04/26/2023 (Approximate), Expires: 02/29/2024 Comprehensive metabolic panel (non-fasting) Lab Routine Thymic carcinoma Expected: 04/26/2023 (Approximate), Expires: 02/29/2024 documented as of this encounter Goals Goal [...] thymus documented in this encounter Care Teams Alarm Signal Operator Relationship Specialty Start Date End Date Jerzy Vidal MD [address] [place] [address] [place] [address] PCP - [facility] Medicine 12/04/18 documented as of this encounter
--- OUTSIDE RECORDS SUMMARY | 2024-02-24 01:14 | XMS_ITS | Encounter Summary ---
Author Organization [facility] Address [facility] [place] [address] Care Team Providers Care Public Information Director Name Role Phone Jerzy Vidal MD Primary Care Provider [phone] Reason for Referral * Diagnostic Test (Routine) - Closed Specialty Diagnoses / Procedures Referred By Contac t Referred To Contact Cardiology Diagnoses Severe aortic stenosis Procedures Echocardiogram Transthoracic Edvin Sultana MD [facility] [place] [address] [facility] [place] [address] Referral ID Status Reason Start Date Expiration Date V isits Requested Visits Authorized [id number] Closed Specialty Service Requested 12/04/2022 12/04/2023 1 1 Reason for Visit * Diagnostic Test (Routine) - Closed Specialty Diagnoses / Procedures Referred By Contac t Referred To Contact Cardiology Diagnoses Severe aortic stenosis Procedures Echocardiogram Transthoracic Edvin Sultana MD [facility] [place] [address] [facility] [place] [address] Referral ID Status Reason Start Date Expiration Date V isits Requested Visits Authorized [id number] Closed Specialty Service Requested 12/04/2022 12/04/2023 1 1 Encounter Details Date Type Department Care Team (Latest Contact Info) Description 03/25/2023 11:07 AM EDT - 03/25/2023 11:59 PM EDT Hospital Encounter Non-Invasive Cardiology Lab Pending Sale [place] [address] Edvin Sultana MD [facility] [place] [address] Severe aortic stenosis Discharge Disposition: Home Social History Tobacco Use Types Packs/Day Years [...] on file documented as of this encounter Medications at Time of Discharge [...] Tablet Take 1 tablet by mouth daily. potassium chloride ER (Klor-Con M) 20 mEq ER micro-encapsulated crystal tabletIndications:Hypo kalemia TAKE ONE TABLET BY MOUTH EVERY DAY 30 tablet 5 02/07/2023 08/23/2023 furosemide (Lasix) 40 mg tablet Take 1 [...] every morning. 90 tablet 3 04/09/2022 07/01/2023 documented as of this encounter Plan of Treatment Upcoming Encounters Date Type Department Care Team (Late st Contact Info) Description 02/24/2024 9:00 AM EDT Office Visit Hematology/Oncology at [address] [phone] Shon Schneider MD [facility] [place] [address] [address] HEMATOLOGY AND ONCOLOGY [place], [place] [id number] 02/24/2024 9:30 AM EDT Infusion Hematology Oncology at [address] [phone] 03/02/2024 11:00 AM EDT Office Visit Hematology/Oncology at [address] [phone] Shon Schneider MD [facility] [place] [address] [address] HEMATOLOGY AND ONCOLOGY [place], [place] [id number] 03/02/2024 12:30 PM EDT Infusion Hematology Oncology at [address] [phone] 03/09/2024 10:00 AM EDT Office Visit Hematology/Oncology at [address] [phone] Shon Schneider MD [facility] [place] [address] [address] [place] [address] 03/09/2024 10:30 AM EDT Infusion Hematology Oncology at [address] [phone] documented as of this encounter Goals Goal Patient Goal Type Associated Problems Recent Progress Patient-Stated? Author DH Home Medication Compliance and Understanding Patient Facing Action Plan On track( 019 3:22 PM EST) Ivana Ashraf, [facility] Note: Remain 95% or better adherent to chemotherapy without severe side effects as assessed by days supply and patient reported adverse events at each refill documented as of this encounter Procedures Procedure Name Priority Date/Time Associated Diagnosis Comments ECHO COMPLETE Routine 03/25/2023 12:16 PM EDT Severe aortic stenosis documented in this encounter Results * ECHO COMPLETE (03/25/2023 12:16 PM EDT) Anatomical Region Laterality Modality Cardiac Other 03/25/2023 11:3 6 AM EDT Narrative 03/25/2023 12:23 PM EDT ? Echocardiogram Report Name: MONICA PIERRE ?Study Date: 03/25/2023 11:36 AMBP: 133/67 mmHg ? Patient Location: : 1955 ? Height: 175 cm ? Account: [id number] Age: 67 yrs ? Weight: 92 kg Gender: Female ?BSA: 2.1 m2 Ordering Physician: EDVIN SULTANA Referring Physician: EDVIN SULTANA Performed By: Kari Francois [facility] Reason For Study: Severe aortic stenosis [I35.0 (ICD-10-CM)] Exam Location: [facility]. Interpretation Summary -Left ventricular systolic function is normal. Left ventricular ejection fraction is estimated visually at 60%. There are no segmental wall motion abnormalities. -The right ventricle is of normal size. Right ventricular systolic function is normal. Right ventricular systolic pressure is 45 mmHg. -Tino valve in the aortic position is functioning normally, trace paravalvular regurgitation. -The ascending aorta is dilated. -In comparison to an immediate post implant study, RVSP is lower. Procedure Complete-[id number]. Satisfactory quality. Left Ventricle Left ventricle is of normal size. Wall thickness is mildly increased. Left ventricular systolic function is normal. Left ventricular ejection fraction is estimated visually at 60%. There are no segmental wall motion abnormalities. Right Ventricle The right ventricle is of normal size. Right ventricular systolic function is normal. Left Atrium The left atrium is mildly dilated. No abnormality of the interatrial septum is identified. Right Atrium The right atrium is mildly [...] There is no mitral stenosis. There is trace mitral regurgitation. Tricuspid Valve The tricuspid valve is structurally normal. There is mild tricuspid regurgitation. Pulmonic Valve The pulmonic valve appears to be structurally normal. There is no pulmonic valve regurgitation. Great Arteries The ascending aorta is dilated. The maximum diameter of the proximal ascending aorta is 4.2 cm. Venous Inferior vena cava is normal in size. Inferior vena cava collapse greater than 50% with respiration. Pericardium/Pleural The pericardium appears normal. Hemodynamics The peak right ventricular systolic pressure is 45.4 mmHg . The estimated right atrial pressure is 3mmHg. Left ventricular diastolic function is abnormal. Left ventricular filling pressure is increased. ? 2D Measurements ? Volumes ?IVSd: 1.0 cm ? LAV(MOD-bp) Indexed: ?LVIDd: 5.5 cm ?LVIDs: 3.9 cm ?37.6 ml/m2 ?LVPWd: 1.1 cm ?RA A4Cs_phl: 20.4 cm2 ? SV(LVOT): 48.9 ml ?LV mass(C)d: 224.0 grams ?LV mass(C)dI: 108.0 grams/m2 ?? SI(LVOT): 23.6 ml/m2 ?asc Aorta Diam: 4.1 cm ?LVOT diam: 1.7 cm ?TAPSE_phl: 1.9 cm Doppler ?3D/Strain/TomTec TR max venkatesh: 313.3 cm/sec ??LV GLS (S3P): -15.6 % RVSP(TR): 45.4 mmHg LV V1 VTI: 22.8 cm Ao V2 VTI: 48.8 cm Ao Max: 239.2 cm/sec Ao valve max: 22.9 mmHg Ao valve mean: 12.9 mmHg MV E max venkatesh: 128.8 cm/sec MVA(P1/2t): 3.0 cm2 Lat Peak E' Venkatesh: 10.7 cm/sec E/ e' (lat): 12.0 Med Peak E' Venkatesh: 9.0 cm/sec E/e' (med): 14.3 E/e' Average: 13.1 ANAHY(I,D): 1.0 cm2 Dimensionless index Aov: 0.47 I ?WMSI = 1.00 ? % Normal = 100 ?Segments ??Size X - Cannot ?2 - ?4 - ?1-2 ? small Interpret ?1 - Normal ?? Hypokinetic 3 - Akinetic Dyskinetic ?? 3-5 ? moderate 5 - ? 6-14 ?large Aneurysmal ?15-16 ?? diffuse Procedure Note Wilfred Dozier MD - 03/25/2023 Echocardiogram Report Name: MONICA PIERRE Study Date: 1:36 AMBP: 133/67 mmHg Patient Location: : 1955 Height: 175 cm Account: [id number] Age: 67 yrs Weight: 92 kg Gender: Female BSA: 2.1 m2 Ordering Physician: EDVIN SULTANA Referring Physician: EDVIN SULTANA Performed By: Kari Francois RDCS Reason For Study: Severe aortic stenosis [I35.0 (ICD-10-CM)] Exam Location: [facility]. Interpretation Summary -Left ventricular systolic function is normal. Left ventricular ejectionfraction is estimated visually at 60%. There are no segmental wall motionabnormalities. -The right ventricle is of normal size. Right ventricular systolicfunction is normal. Right ventricular systolic pressure is 45 mmHg. -Tino valve in the aortic position is functioning normally, traceparavalvular regurgitation. -The ascending aorta is dilated. -In comparison to an immediate post implant study, RVSP is lower. Procedure Complete-[id number]. Satisfactory quality. Left Ventricle Left ventricle is of normal size. Wall thickness is mildly increased.Left ventricular systolic function is normal. Left ventricular ejectionfraction is estimated visually at 60%. There are no segmental wall motionabnormalities. Right Ventricle The right ventricle is of normal size. Right ventricular systolic functionis normal. Left Atrium The left atrium is mildly dilated. No abnormality of the interatrialseptum is identified. Right Atrium The right atrium is mildly dilated. Aortic Valve The aortic prosthetic valve appears to be functioning normally. There ellen transcatheter valve in the aortic position. The date or year of insertionis 01/19/2023. There is a 23 mm aortic prosthesis. The peak gradient acrossthe prosthesis is 22.9 mmHg . The mean gradient across the prosthesis is 12.9mmHg . There appears to be trace paravalvular regurgitation. There appears to rhonda intravalvular regurgitation. Mitral Valve The mitral valve leaflets are thickened. There is no mitral stenosis.There is trace mitral regurgitation. Tricuspid Valve The tricuspid valve is structurally normal. There is mild tricuspidregurgitation. Pulmonic Valve The pulmonic valve appears to be structurally normal. There is no pulmonicvalve regurgitation. Great Arteries The ascending aorta is dilated. The maximum diameter of the proximalascending aorta is 4.2 cm. Venous Inferior vena cava is normal in size. Inferior vena cava collapse greaterthan 50% with respiration. Pericardium/Pleural The pericardium appears normal. Hemodynamics The peak right ventricular systolic pressure is 45.4 mmHg . The estimatedright atrial pressure is 3mmHg. Left ventricular diastolic function is abnormal.Left ventricular filling pressure is increased. 2D Measurements Volumes IVSd: 1.0 cm LAV(MOD-bp)Indexed: LVIDd: 5.5 cm LVIDs: 3.9 cm 37.6 ml/m2 LVPWd: 1.1 cm RA A4Cs_phl: 20.4cm2 SV(LVOT): 48.9ml LV mass(C)d: 224.0 grams LV mass(C)dI: 108.0 grams/m2 SI(LVOT): 23.6ml/m2 asc Aorta Diam: 4.1 cm LVOT diam: 1.7 cm TAPSE_phl: 1.9 cm Doppler 3D/Strain/TomTec TR max venkatesh: 313.3 cm/sec LV GLS (S3P): -15.6 % RVSP(TR): 45.4 mmHg LV V1 VTI: 22.8 cm Ao V2 VTI: 48.8 cm Ao Max: 239.2 cm/sec Ao valve max: 22.9 mmHg Ao valve mean: 12.9 mmHg MV E max venkatesh: 128.8 cm/sec MVA(P1/2t): 3.0 cm2 Lat Peak E' Venkatesh: 10.7 cm/sec E/ e' (lat): 12.0 Med Peak E' Venkatesh: 9.0 cm/sec E/e' (med): 14.3 E/e' Average: 13.1 ANAHY(I,D): 1.0 cm2 Dimensionless index Aov: 0.47 I WMSI = 1.00 % Normal = 100 SegmentsSize X - Cannot 2 - 4 - 1-2small Interpret 1 - Normal Hypokinetic 3 - Akinetic Dyskinetic 3-5moderate 5 - 6-14large Aneurysmal 15-16diffuse Edvin Sultana MD ECHO ORDERABLES documented in this encounter Visit Diagnoses Diagnosis Severe aortic stenosis Aortic valve disorders Thymic carcinoma Malignant neoplasm of thymus documented in this encounter Care Teams Public Information Director Relationship Specialty Start Date End Date Jerzy Vidal MD [address] [place] [address] [place] [address] PCP - [facility] 12/04/18 documented as of this encounter
--- OUTSIDE RECORDS SUMMARY | 2024-02-24 01:14 | XMS_ITS | Encounter Summary ---
Author Organization Formerly [facility] [place] [address] Care Team Providers [facility] Administrator Name Role Phone Jerzy Vidal MD Primary Care Provider Reason for Visit * Auth/Cert (Routine) Specialty [...] ECHO DURING CATH/EP PROCEDURE Edvin Sultana MD [facility] [place] [address] [place] [address] [facility] Referral ID Status Reason Start Date Expiration Date Visits Re quested Visits Authorized [id number] 1 1 Encounter Details Date Type Department Care Team (Latest Contact Info) Description 01/19/2023 9:54 AM EDT - 01/20/2023 12:55 PM EDT Hospital Encounter Heart and Vascular Unit Level 4 [place] [address] Edvin Sultana MD [facility] [place] [address] Marivel Cooper MD [facility] [place] [address] S/P TAVR (transcatheter aortic valve replacement) (Primary Dx); Severe aortic stenosis; Hypokalemia Discharge Disposition: Home Social History Tobacco Use [...] Sign Reading Time Taken Comments Blood Pressure 133/73 01/20/2023 4:16 AM EDT Pulse 63 01/20/2023 4:16 AM EDT Temperature 36.6 ??C (97.9 ??F) 01/20/2023 4:16 AM ED T Respiratory Rate 16 01/20/2023 4:16 AM EDT Oxygen Saturation 97% 01/20/2023 4:16 AM EDT Inhaled Oxygen Concentration - - Weight 91.9 kg (202 lb 9.6 oz) 01/20/2023 5:34 A M EDT Height 175.3 cm (5' 9.02) 01/19/2023 10:57 AM E DT Body Mass Index 29.91 01/19/2023 10:57 AM EDT documented in this encounter Discharge Summaries * Tricia Hackett PA - 01/20/2023 11:38 AM EDT Inpatient - Discharge Summary Patient Name: Monica Jaramillo Patient Age: 67 y.o. Birthdate: 1955 Language: Bhutanese Race: White Ethnicity: Not nor Admit Date: 01/19/2023 Discharge Date: 01/20/2023 Attending Physician: Edvin Sultana MD Follow-up Recommendations for Providers: Please continue routine management of cardiovascular risk factors including blood pressure, lipids,glucose, etc. Please note any medication changes. Our office will schedule a follow-up appointment with your PCP, Jerzy Vidal MD, or Primary Community Organization Director in ~ 7-10 days. Our office will schedule a follow-up appointment with your [employer], Dr. Florian in 4 weeks with CXR, EKG, Echo, CBC, and CMP. Hdli-Oamqnx-lk interval: After initial 30 day follow-up appointment , all TAVR patients will follow-up again in one year with an echo. Inpatient Provider Contact Information: [facility] Section of Cardiac Surgery [facility] [phone] FAX [phone] Discharge Diagnoses (Hospital Problems) Primary Diagnoses: Aortic [...] IR Thoracentesis Right 10/28/2022 John Durand MD [facility] INTERVENTIONL RAD IR THORACENTESIS RIGHT 11/02/2022 IR Thoracentesis Right 11/02/2022 Laxmi Felix PA [facility] INTERVENTIONL RAD SOFT TISSUE BIOPSY 03/22/2017 THORACENTESIS Prior [...] TF TAVR Monica Jaramillo was admitted to [facility] on 01/19/2023 via the Same Day Program. She was brought to the labourers 01/19/[address] Marivel Cooper and Edvin [...] if you have questions. Please call your [employer]'s office if you have any discharge or drainage from your procedural sites. Your [employer], Dr. Edvin Sultana and/or the Counter Maker may be reached at . You may also contact DAJA Taveras RN, TAVR Cook House Laborer at [phone] with any questions or issues. Antibiotic prophylaxis: You will need to take antibiotics prior to many invasive tests and treatments, such as dental cleaning, which should be done every 6 months. Your primary care physician or your dentist can prescribe this medication. Please refer to the [place] Guidelines for more information. Good [...] friends, go to a movie, go to anabaptism, etc. Heavy activities: No hunting, skiing, jogging, [...] should resume a low fat, low cholesterol, [place] Heart Association Diet/Renal diet. Driving: No driving for 3 days. Shower/Bath: You may shower daily. No baths, soaking, or swimming until cleared by your surgeon. Wound care: Wash your incisions daily with antibacterial soap and rinse well, pat dry. Assess for any signs of infection such as increased redness, pain, warmth or drainage. Please call your machine load clerk's office if you have any discharge or drainage from your procedural sites. If there is a lot of swelling, apply juan wraps during the day and remove at bedtime. Elevate your legs when you are sitting. Follow up appointments: Our office will schedule a follow-up appointment with your PCP, Jerzy Vidal MD, or Primary Community Organization Director in ~ 7-10 days. Follow up with Dr. Schneider as scheduled next week Our office will schedule a follow-up appointment with your [employer], Dr. Florian, in 4 weeks with CXR, EKG, Echo, CBC, and CMP. Hbgj-Negmkh-jg interval: After initial 30 day follow-up appointment [...] 1:30 PM Ciara Pitts APRN Hematology/Oncology at [facility] Arrive at: Home [phone] To view instructions for your video visit, click here, or visit this website: [email or web address] If you have not previously downloaded the [facility] patient portal software, Game Trust, or the Foradian enrique, please do so by clicking one of these links below or searching in your device's enrique store. For all desktops/laptops; for Android devices; for Apple/OnTrak Software[employer] devices FAQs: Join Video Visit button not connecting? - This may be due to pop-up blockers. - Click this link to see: How to Disable Pop-Up Block for myDH Video Visits Zoom asking for a meeting password? - Exit out of the Zoom program and try the link again Future Orders Complete By Expires CBC (with Diff) [RDZ755 Custom] 02/20/2023 (Approximate) 08/22/2023 Process Instructions: INCLUDES: WBC, RBC, Hgb, Hct, Platelets, RBC Indices and Differential Scheduling Instructions: Comments: Questions: Comprehensive metabolic panel (non-fasting) [LAB17 Custom] 02/20/2023 (Approximate) 04/20/2023 Process Instructions: INCLUDES: Calcium, T Protein, Albumin, AST, ALT, Alk Phos, T Bili, BUN, Creat, GFR, Glucose, Lytes. Scheduling Instructions: Comments: Questions: Echocardiogram Transthoracic [67075 CPT(R)] 02/20/2023 (Approximate) 08/22/2023 Process Instructions: Scheduling Instructions: Questions: Where will study be performed?: [facility] Clin[facility] Does the patient have Congenital Heart Disease?: Does patient require sedation?: GA rationale: EKG 12 Lead [13610 CPT(R)] 02/20/2023 (Approximate) 08/22/2023 Process Instructions: Scheduling Instructions: Questions: Which DH location will this be performed?: [place] Is a rhythm strip needed?: No XR Chest PA & Lateral (Generic) [95322 38063 Custom] 02/20/2023 (Approximate) 08/22/2023 Process Instructions: Scheduling Instructions: Questions: Where will study be performed?: [facility] Radiology Portable exam?: Reason for exam and clinical history: s/p tavr Clinical information / vinson questions for radiologist: Stat read required?: Date of injury if applicable: Requested Time: Discharge References/Attachments None Signed: Tricia Hackett PA-C [facility] Section of Cardiac Surgery Date: 01/20/2023 CC: [...] if you have questions. Please call your [employer]'s office if you have any discharge or drainage from your procedural sites. Your [employer], Dr. Edvin Sultana and/or the Counter Maker may be reached at . You may also contact DAJA Taveras RN, TAVR Cook House Laborer at [phone] with any questions or issues. Antibiotic prophylaxis: You will need to take antibiotics prior to many invasive tests and treatments, such as dental cleaning, which should be done every 6 months. Your primary care physician or your dentist can prescribe this medication. Please refer to the [place] [employer] Guidelines for more information. Good [...] friends, go to a movie, go to anabaptism, etc. Heavy activities: No hunting, skiing, jogging, [...] should resume a low fat, low cholesterol, [place] Heart [employer] Diet/Renal diet. Driving: No driving for 3 days. Shower/Bath: You may shower daily. No baths, soaking, or swimming until cleared by your surgeon. Wound care: Wash your incisions daily with antibacterial soap and rinse well, pat dry. Assess for any signs of infection such as increased redness, pain, warmth or drainage. Please call your machine load clerk's office if you have any discharge or drainage from your procedural sites. If there is a lot of swelling, apply juan wraps during the day and remove at bedtime. Elevate your legs when you are sitting. Follow up appointments: Our office will schedule a follow-up appointment with your PCP, Jerzy Vidal MD, or Primary Community Organization Director in ~ 7-10 days. Follow up with Dr. Schneider as scheduled next week Our office will schedule a follow-up appointment with your [employer], Dr. Florian, in 4 weeks with CXR, EKG, Echo, CBC, and CMP. Jkhc-Jmhwhh-ue interval: After initial 30 day follow-up appointment [...] Rate from SpO2: [63 bpm-76 bpm] 01/19 07 - 01/20 07 In: 1200 [P.O.:500; I.V.:700] Out: 1230 [Urine:1225] [...] 0600 and on the weekends please page [phone]. * Juan Miguel Castorena APRN - 01/20/2023 [...] 01/19/231415 Securement catheter stabilization device, secured with 01/19/231415 Patency/Maintenance flushed without difficulty;infusing 01/19/231415 Phlebitis 0-->no symptoms 01/19/23 141 Infiltration 0-->no symptoms 01/19/23 141 Site Signs/Symptoms no redness;no swelling;no streak formation;no drainage;no pain;no warmth;no palpable cord 01/19/23 141 Labs: Recent Labs 01/20/23 0412 01/19/23170501/19/23 1024 [...] Miguel Castorena APRN Structural Heart Team Pager [phone] documented in this encounter H&P Notes * Holly Srinivasan PA - 01/19/2023 11:18 AM EDT Patient Name: Monica Jaramillo Patient Age: 67 y.o. Birthdate: 1955 Admit date: 01/19/2023 Attending Physician: Edvin Sultana MD [facility] Heart & Vascular Center Interventional Cardiology Structural [...] KIMBERLY Garvin Interventional Cardiology 01/19/23 11:[address] [facility] Pager: [phone] documented in this encounter Miscellaneous Notes * Brief Op Note - Marivel Cooper MD - 01/20/2023 12:55 PM EDT Brief Operative Note Patient Name: Monica Jaramillo : [id number] MR#: [id number] Case Date: 01/19/2023 Surgeon: Surgeon(s) and Role: * Edvin Sultana MD - Attending Co-Surgeon * Marivel Cooper MD - Attending Co-Surgeon * Parul Beltrán MD - Fellow - Assisting * Holly Srinivasan PA - Physician Sr. Manager Marketing Preoperative diagnosis: Severe aortic stenosis [I35.0] Postoperative [...] visit, click here, or visit this website: [email or web address] If you have not previously downloaded the [facility] patient portal software, Game Trust, or the Foradian enrique, please do so by clicking one [...] Leon RN - 01/20/2023 5:36 AM EDTSummary: Java Software Developer summary Patient AOx4, VSS, 3L NC @ [...] Procedure Note: Patient Name: Monica Jaramillo : [id number] MR#: [id number] Case Date: 01/19/2023 Hadoop Engineer: Surgeon(s) and Role: Panel 1: * Edvin Sultana MD - Primary * Parul Beltrán MD - Fellow - Assisting * Holly Srinivasan PA - Physician Sr. Manager Marketing Panel 2: * Marivel Cooper MD - [...] MD, M.Sc. Structural Heart Disease Fellow Pager :[phone] * Op Note - Marivel Cooper MD - 01/19/2023 11:[address] [facility] Operative Note Patient Name: Monica Jaramillo : [id number] MR#: [id number] Case Date: 01/19/2023 Surgeon: Surgeon(s) and Role: * Edvin Sultana MD - Attending Co-Surgeon * Marivel Cooper MD - Attending Co-Surgeon * Parul Beltrán MD - Fellow - Assisting * Holly Srinivasan PA - Physician Sr. Manager Marketing Preoperative diagnosis: Severe aortic stenosis [I35.0] Postoperative [...] Description: The patient was brought to the Core Loader and placed upon the Core Loader table in the supine position. Following administration of the sedation anesthetic the patient was prepped and draped using sterileprep. Simultaneous femoral arterial access was obtained utilizing Seldinger techniques and 0.035 inch J-tipped guidewires. Using these techniques 6 Peruvian sheaths were placed into the right and left common femoral artery. Angiography demonstrated positioning of the catheters above the femoral arterial bifurcation. Using similar techniques a 6 Peruvian sheath was placed into the left common [...] valve was then crossed with a 6 Peruvian AL-1 catheter and straight wire which was [...] around the thoracic aortic arch into the kake calcified annulus under fluoroscopy. Root angiography under [...] procedure well and was taken to the Core Loader recovery room in hemodynamically stable condition. Attestation: Case Date: 01/19/2023 I was present and I participated during the entire procedure (does not need to include opening and closing). MARIVEL COOPER MD 02/04/2023 documented in this encounter Plan of Treatment Upcoming Encounters Date Type Department Care Team (Late st Contact Info) Description 02/24/2024 9:00 AM EDT Office Visit Hematology/Oncology at [address] [phone] Shon Schneider MD [facility] [place] [address] [address] HEMATOLOGY [place] [address] 02/24/2024 9:30 AM EDT Infusion Hematology Oncology at [address] [phone] 03/02/2024 11:00 AM EDT Office Visit Hematology/Oncology at [address] [phone] Shon Schneider MD [facility] [place] [address] HEMATOLOGY [place] [address] 03/02/2024 12:30 PM EDT Infusion Hematology Oncology at [address] [phone] 03/09/2024 10:00 AM EDT Office Visit Hematology/Oncology at [address] [phone] Shon Schneider MD [facility] [place] [address] Ciara Pitts APRN [address] [place] [address] HEMATOLOGY AND ONCOLOGY [place], [place] [id number] 03/09/2024 10:30 AM EDT Infusion Hematology Oncology at [address] [phone] Scheduled Orders Name Type Priority Associated Diagnoses [...] track( 019 3:22 PM EST) Ivana Ashraf, [facility] Note: Remain 95% or [...] stenosis TYPE AND SCREEN, SDP (FUTURE SURGERY, [facility] SAME DAY PROGRAM ONLY) Routine 01/19/2023 10:24 [...] (Bezet) 451 ms MUSE SYSTEM Calculated R [place] 97 degrees MUSE SYSTEM Calculated T [place] 12 degrees MUSE SYSTEM INTERPRETATION Atrial fibrillation [...] EDT) Glucose 103 65 - 199 mg/dL [facility] Comment:Diabetes: >=200 mg/d L plus symptoms Blood Urea Nitrogen 25(H) 8 - 18 mg/dL [facility] Creatinine 0.87 0.70 - 1.20 mg/dL [facility] Sodium 142 135 - 145 mmol/L [facility] Potassium 4.2 3.5 - 5.0 mmol/L [facility] Comment: Please note: ??Patients with WBC >100,000 may have falsely elevated Potassium levels. ??For accurate Potassium quantification in these patients send serum separator tube (gold top) for subsequent determinations. ??Contact the Clinical Chemistry Laboratory if there are any questions. Chloride 100 98 - 107 mmol/L [facility] Carbon Dioxide 32(H) 22 - 31 mmol/L [facility] Anion Gap 10 5 - 15 mmol/L [facility] Calcium 10.3 8.5 - 10.5 mg/dL [facility] Protein, Total 8.1(H) 6.1 - 8.0 g/dL [facility] Albumin 4.2 3.2 - 5.2 g/dL [facility] Aspartate Aminotransferase 15 0 - 30 unit/L [facility] Alanine Aminotransferase 8 0 - 30 unit/L [facility] Alkaline Phosphatase 65 35 - 105 unit/L [facility] Bilirubin, Total 0.6 0.2 - 1.3 mg/dL [facility] Est Glomerular Filtration Rate 74 >=60 mL/min/1. 73 m?? [facility] Comment: This patient's estimated GFR [...] Sultana MD CHEMISTRY ORDERABLES Performing Organization Address City/State/[facility] Co de Phone Number [facility] [place] [address] * CARDIAC CATHETERIZATION (01/24/2023 11:37 AM EDT) Anatomical Region Laterality Modality Other Narrative 01/19/2023 4:57 PM EDT ?[facility] ? Cardiac Catheterization/Intervention Report ? Patient Name: Monica Jaramillo. ? Procedure Date: 01/19/2023 ? A #: [id number] ? Primary Physician: Young, Edvin N ? Case #: [id number] ? File Name: [id number] ? Catheterization Order Number: [id number] ? [facility] ? Final Report [place], [place] ? Patient Name: ? Monica L. Ella ? ID#: ?[id number] ? : ?1955 ? Procedure Date: ? January 19, 2023 ? Case #: ? [id number] ? Room: ? 6 ? Case Physicians: ?Edvin Sultana M.D. ?Start: ?11:54 ?Ryan Valentino M.D. ?Admission: ??01/19/2023 ?Fellow: ? Emajoanna Barrientos M.D. ? Procedures: ?* Left Heart Catheterization ?* Aortic Root Aortogram ?* Transcatheter Aortic Valve Replacement ?* Vascular Closure Device Deployment ?* Temporary Pacemaker Insertion In Core Loader ?* Access Site Angiography ?* Anesthesia ?* [...] Tino 3 Ultra RESILIA 23 mm THV (s/l=[id number]) transcatheter ?valve was inserted using standard technique. [...] to nor was it given in the ?labourers. ?Recommended anti-platelet/anti-thrombotic regimen: ?Continue aspirin 81 mg daily. ?Continue apixaban 5 mg twice daily. ?These recommendations are made at the time of the intervention. Patient ?and provider preferences or a changing clinical situation may require ?modification of this regimen. Consult [facility] Interventional Cardiology for ?questions. ? Conclusions: ?* [...] site angiography, vascular ultrasound, temporary ?pacemaker in labourers, vascular closure device, transthoracic echo ??and ?TAVR. Dr. Ryan Young Chicho, M.D. performed the anesthesia and ABG. ? Edvin Sultana M.D. ? Electronically Signed by: Edvin Sultana M.D. ? Report Finalized: 01/19/2023 ??16:53 ? Report Last Ammended: 01/24/2023 ??11:29 ? Procedure Note Edvin Sultana MD - 01/24/2023 [facility] Cardiac Catheterization/Intervention Report Patient Name: Monica Jaramillo Procedure Date: 01/19/2023 A #: [id number] Primary Physician: Edvin Sultana Case #: [id number] File Name: [id number] Catheterization Order Number: [id number] [facility] FinalReport [place], [place] Patient Name: Monica Jaramillo ID#:[id number] :1955 Procedure Date: January 19, 2023 Case #: [id number] Room: 6 Case Physicians: Edvin Sultana M.D. Start: 11:54 Ryan Valentino M.D. Admission:01/19/2023 Fellow: Parul Barrientos M.D. Procedures: * Left Heart Catheterization * Aortic Root Aortogram * Transcatheter Aortic Valve Replacement * Vascular Closure Device Deployment * Temporary Pacemaker Insertion In Core Loader * Access Site Angiography * Anesthesia * [...] Tino 3 Ultra RESILIA 23 mm THV (s/w=[id number])transcatheter valve was inserted using standard technique. Protamine [...] prior to nor was it given inthe labourers. Recommended anti-platelet/anti-thrombotic regimen: Continue aspirin 81 mg daily. Continue apixaban 5 mg twice daily. These recommendations are made at the time of the intervention.Patient and provider preferences or a changing clinical situation mayrequire modification of this regimen. Consult [facility] Interventional Cardiologyfor questions. Conclusions: * Ascending thoracic [...] access site angiography, vascular ultrasound,temporary pacemaker in labourers, vascular closure device, transthoracic echoand TAVR. Dr. [...] who have questions please contact the health personal care service provider that requested your imaging first. ? Narrative [...] patients who have questions please contactthe health personal care service provider that requested your imaging first. Edvin Sultana MD IMG DX ORDERABLES * EKG 12 Lead (01/20/2023 6:33 AM EDT) Ventricular rate 62 BPM MUSE SYSTEM QRS Duration 72 ms MUSE SYSTEM Q-T Interval 412 ms MUSE SYSTEM QTC Calculated (Bezet) 418 ms MUSE SYSTEM Calculated R [place] 75 degrees MUSE SYSTEM Calculated T [place] -6 degrees MUSE SYSTEM INTERPRETATION Atrial fibrillation Abnormal ECG When compared with ECG of 27-OCT-2022 10:26, No significant change was found I personally reviewed the tracing and edited the fellows interpretation Confirmed by fellow Salomón Milner ([id number]) on 01/20/2023 7:23:16 PM Confirmed by MD FARR ARMIN ([id number]) on 01/20/2023 9:04:38 PM MUSE SYSTEM 01/20/2023 6:33 AM EDT 01/20/2023 9:04 PM EDT Edvin Sultana MD ECG ORDERABLES MUSE SYSTEM * (ABNORMAL) Differential, Automated (01/20/2023 4:12 AM EDT) Neutrophil % 74.2 % [facility] Neutrophil Absolute 4.31 1.70 - 6.10 x10(3)/mc L [facility] Lymph % 8.2 % [facility] Lymphocytes Abs 0.5(L) 0.9 - 3.2 x10(3)/mc L [facility] Monocyte % 13.2 % [facility] Monocyte Abs 0.8 0.3 - 0.9 x10(3)/mc L [facility] Eos % 3.4 % [facility] Eosinophils Abs 0.2 0.0 - 0.4 x10(3)/mc L [facility] Basophil % 0.7 % [facility] Baso Absolute 0.0 0.0 - 0.1 x10(3)/mc L [facility] Immature Gran % 0.30 % [facility] Comment: Immature granulocytes(IG's)percentage and absolute count will include metamyelocytes, myelocytes, and promyelocytes. Blood smears from CBCs yielding IG's will be scanned manually for concordance. If this scan disagrees with the automated IG or if promyelocytes are noted, a manual differential will be performed. Immature Gran Absolute 0.02 0.00 - 0.04 x10(3)/mc L [facility] Blood 01/20/2023 4:12 AM EDT 01/20/2023 4:39 AM EDT Narrative Resulting Agency Comment Spec In Lab Gina HARRIS HEMATOLOGY FRANKI MCKNIGHT [facility] [place] [address] * (ABNORMAL) Hemogram (01/20/2023 4:12 AM EDT) White Blood Cell 5.8 4.0 - 9.5 x10(3)/mc L [facility] Red Blood Cell 2.79(L) 4.00 - 5.21 x10(6)/mc [facility] Hemoglobin 9.4(L) 11.7 - 15.5 g/dL [facility] Hematocrit 30.4(L) 35.7 - 45.8 % [facility] Mean Cell Volume 109.0(H) 82.6 - 94.4 fL [facility] Mean Cell Hemoglobin 33.7(H) 27.1 - 32.0 pg [facility] Mean Cell Hemoglobin Concentration 30.9(L) 31.7 - 35.0 g/dL [facility] Platelet 134(L) 145 - 357 x10(3)/mc L [facility] RDW Standard Deviation 67.7(H) 37.0 - 46.0 fL [facility] RDW coefficient of variation 16.6(H) 11.5 - 14.1 % [facility] Mean Platelet Volume 9.5 7.6 - 12.9 fL [facility] NRBC% auto 0.0 % [facility] NRBC Absolute 0.000 0.000 - 0.000 x10(3)/ L [facility] Blood 01/20/2023 4:12 AM EDT 01/20/2023 4:39 AM EDT Narrative Resulting Agency Comment Spec In Lab Gina HARRIS HEMATOLOGY ORDE JUAN LUIS Performing Organization Address [facility]/ZIP Co de Phone Number [facility] [place] [address] * (ABNORMAL) Basic Metabolic Panel (non-fasting) (01/20/2023 4:12 AM EDT) Glucose 99 65 - 199 mg/dL [facility] Comment:Diabetes: >=200 mg/d L plus symptoms Blood Urea Nitrogen 15 8 - 18 mg/dL [facility] Creatinine 0.93 0.70 - 1.20 mg/dL [facility] Sodium 133(L) 135 - 145 mmol/L [facility] Potassium 4.5 3.5 - 5.0 mmol/L [facility] Comment: Please note: ??Patients with WBC >100,000 may have falsely elevated Potassium levels. ??For accurate Potassium quantification in these patients send serum separator tube (gold top) for subsequent determinations. ??Contact the Clinical Chemistry Laboratory if there are any questions. Chloride 99 98 - 107 mmol/L [facility] Carbon Dioxide 28 22 - 31 mmol/L [facility] Anion Gap 6 5 - 15 mmol/L [facility] Calcium 9.3 8.5 - 10.5 mg/dL [facility] Est Glomerular Filtration Rate 68 >=60 mL/min/1. 73 m?? [facility] Comment: This patient's estimated GFR [...] Sultana MD CHEMISTRY ORDERABLES Performing Organization Address City/[facility]/ZIP Co de Phone Number [facility] [place] [address] * (ABNORMAL) Hemoglobin (01/19/2023 5:06 PM EDT) Hemoglobin 9.5(L) 11.7 - 15.5 g/dL [facility] Blood 01/19/2023 5:06 PM EDT 01/19/2023 5:19 PM EDT Narrative Resulting Agency Comment Spec In Lab Edvin Sultana MD HEMATOLOGY ORDERABLE S Performing Organization Address [facility] Co de Phone Number [facility] [place] [address] * Potassium (01/19/2023 5:06 PM EDT) Potassium 4.7 3.5 - 5.0 mmol/L [facility] Comment: Please note: ??Patients with [...] Sultana MD CHEMISTRY ORDERABLES Performing Organization Address [facility] Co de Phone Number [facility] [place] [address] * ECHO LMTD W/O CONTRAST W LMTD SPEC DOPP COLOR DOPP (01/19/2023 2:36 PM EDT) Anatomical Region Laterality Modality Cardiac Other 01/19/2023 11:3 7 AM EDT Narrative 01/19/2023 2:47 PM EDT ? Echocardiogram Report Name: ELLAMONICA Yehuda ?Study Date: 01/19/2023 11:37 AMBP: 112/62 mmHg ? Patient Location: [place]^CA06^A : 1955 ? Height: 175 cm ? Account: [id number] Age: 67 yrs ? Weight: 91 kg Gender: Female ?BSA: 2.1 m2 Ordering Physician: EDVIN SULTANA Referring Physician: EDVIN SULTANA Performed By: Rolando Taylor RDCS Reason For Study: Guidance for TAVR procedure Exam Location: [facility]. Interpretation Summary Study performed for guidance of TAVR. PRE: Severe aortic stenoiss. LVEF 65%. Trivial posterior pericardial effusion. POST: Tino valve in the aortic position. Well seated with normal function, no regurgitation. Unchnaged LVEF. Unchanged pericardial effusion. RVSP 66 mmHg with normal RV function, mild to moderate tricuspid regurgitation. See report for additional findings. Procedure Limited - 93294. Doppler - 81647. Color Doppler - 06512. Left Ventricle Left ventricle is of normal [...] Dozier MD - 01/19/2023 Echocardiogram Report Name: ELLAMONICA LOVETT Yehuda Study Date: :37 AMBP: 112/62 mmHg Patient Location:[place]^[facility]^A : 1955 Height: 175 cm Account: [id number] Age: 67 yrs Weight: 91 kg Gender: Female BSA: 2.1 m2 Ordering Physician: EDVIN SULTANA Referring Physician: EDVIN SULTANA Performed By: Rolando Taylor RDCS Reason For Study: Guidance for TAVR procedure Exam Location: [facility]. Interpretation Summary Study performed for guidance of TAVR. PRE: Severe aortic stenoiss. LVEF 65%. Trivial posterior pericardialeffusion. POST: Tino valve in the aortic position. Well seated with normalfunction, no regurgitation. Unchnaged LVEF. Unchanged pericardial effusion. RVSP 66mmHg with normal RV function, mild to moderate tricuspid regurgitation. See report for additional findings. Procedure Limited - 43214. Doppler - 60503. Color Doppler - 41734. Left Ventricle Left ventricle is of normal [...] * POCT Glucose (01/19/2023 11:57 AM EDT) [facility] Glucose, POC 96 65 - 199 mg/dL [facility] Comment: Supplemental ranges: <140 mg/dL before meals <180 mg/dL all other times of the day Blood 01/19/2023 11:5 7 AM EDT 01/19/2023 11:57 AM EDT Edvin Sultana MD POINT OF CARE TEST O RDERASHAILESH Performing Organization Address [facility] Co de Phone Number [facility] [place] [address] * Prepare RBC (01/19/2023 11:50 AM EDT) [facility] Dispensed? No [facility] Blood 01/19/2023 11:5 0 AM EDT 01/19/2023 11:49 AM EDT Edvin Sultana MD BLOOD BANK PRODUCT O RDERASHAILESH Performing Organization Address City/[facility]/[place] [address] * Type and Screen Validity (01/19/2023 10:24 AM EDT) [facility] T&S only valid at [facility] Comment:This Type and Screen result is only valid at the [facility] Blood 01/19/2023 10:2 4 AM EDT 01/19/2023 10:24 AM EDT Narrative Resulting Agency Comment Spec In Lab Edvin Sultana MD BLOOD BANK LAB ORDER DOM [facility] [place] [address] * Scan, Peripheral Blood (01/19/2023 10:24 AM EDT) Pathologist [facility] Plat estimate Normal [facility]ITAL [facility] RBC Morphology Abnormal [facility] Macrocyte 1-5 /HPF [facility] Hypochromia Slight [facility] Ovalocytes 1-5 /HPF [facility] Blood 01/19/2023 10:2 4 AM EDT 01/19/2023 10:28 AM EDT Narrative Resulting Agency Comment Spec In Lab Edvin Sultana MD HEMATOLOGY ORDERABLE S Performing Organization Address City/[facility]/ZIP Co de Phone Number [facility] [place] [address] * ABORH Recheck Status (01/19/2023 10:24 AM EDT) [facility] ABORH Type Recheck Completed [facility] Blood 01/19/2023 10:2 4 AM EDT 01/19/2023 10:24 AM EDT Narrative Resulting Agency Comment Spec In Lab Edvin Sultana MD BLOOD BANK LAB ORDER DOM Performing Organization Address City/[facility]/ZIP Co de Phone Number [facility] [place] [address] * (ABNORMAL) Differential, Automated (01/19/2023 10:24 AM EDT) Pathologist [facility] Neutrophil % 68.1 % [facility] Neutrophil Absolute 3.00 1.70 - 6.10 x10(3)/mc L [facility] Lymph % 9.3 % [facility] Lymphocytes Abs 0.4(L) 0.9 - 3.2 x10(3)/mc L [facility] Monocyte % 11.4 % [facility] Monocyte Abs 0.5 0.3 - 0.9 x10(3)/mc L [facility] Eos % 9.8 % [facility] Eosinophils Abs 0.4 0.0 - 0.4 x10(3)/ L [facility] Basophil % 0.9 % [facility] Baso Absolute 0.0 0.0 - 0.1 x10(3)/mc L [facility] Immature Gran % 0.50 % [facility] Comment: Immature granulocytes(IG's)percentage and absolute count will include metamyelocytes, myelocytes, and promyelocytes. Blood smears from CBCs yielding IG's will be scanned manually for concordance. If this scan disagrees with the automated IG or if promyelocytes are noted, a manual differential will be performed. Immature Gran Absolute 0.02 0.00 - 0.04 x10(3)/ L [facility] Blood 01/19/2023 10:2 4 AM EDT 01/19/2023 10:28 AM EDT Narrative Resulting Agency Comment Spec In Lab Edvin Sultana MD HEMATOLOGY ORDERABLE S Performing Organization Address City/State/[facility] Co de Phone Number [facility] [place] [address] * (ABNORMAL) Hemogram (01/19/2023 10:24 AM EDT) White Blood Cell 4.4 4.0 - 9.5 x10(3)/mc L [facility] Red Blood Cell 2.98(L) 4.00 - 5.21 x10(6)/mc L [facility] Hemoglobin 10.1(L) 11.7 - 15.5 g/dL [facility] Hematocrit 32.7(L) 35.7 - 45.8 % [facility] Mean Cell Volume 109.7(H) 82.6 - 94.4 fL [facility] Mean Cell Hemoglobin 33.9(H) 27.1 - 32.0 pg [facility] Mean Cell Hemoglobin Concentration 30.9(L) 31.7 - 35.0 g/dL [facility] Platelet 160 145 - 357 x10(3)/mc L [facility] RDW Standard Deviation 68.6(H) 37.0 - 46.0 fL [facility] RDW coefficient of variation 16.9(H) 11.5 - 14.1 % [facility] Mean Platelet Volume 9.2 7.6 - 12.9 fL [facility] NRBC% auto 0.0 % [facility] NRBC Absolute 0.000 0.000 - 0.000 x10(3)/mc L [facility] Blood 01/19/2023 10:2 4 AM EDT 01/19/2023 10:28 AM EDT Narrative Resulting Agency Comment Spec In Lab Edvin Sultana MD HEMATOLOGY ORDERABLE S Performing Organization Address City/[facility]/ZIP Co de Phone Number [facility] [place] [address] * Antibody screen (01/19/2023 10:24 AM EDT) Ab Screen Interp Negative [facility] Expires at [id number] on: 01/22/2023 [facility] Blood 01/19/2023 10:2 4 AM EDT 01/19/2023 10:24 AM EDT Narrative Resulting Agency Comment Spec In Lab Edvin Sultana MD BLOOD BANK LAB ORDER DOM [facility] [place] [address] * ABO/Rh Typing (01/19/2023 10:24 AM EDT) ABORH Type A Pos [facility] Blood 01/19/2023 10:2 4 AM EDT 01/19/2023 10:24 AM EDT Narrative Resulting Agency Comment Spec In Lab Edvin Sultana MD BLOOD BANK LAB ORDER DOM [facility] [place] [address] * Basic Metabolic Panel (non-fasting) (01/19/2023 10:24 AM EDT) Glucose 94 65 - 199 mg/dL [facility] Comment:Diabetes: >=200 mg/d L plus symptoms Blood Urea Nitrogen 16 8 - 18 mg/dL [facility] Creatinine 0.92 0.70 - 1.20 mg/dL [facility] Sodium 137 135 - 145 mmol/L [facility] Potassium 4.5 3.5 - 5.0 mmol/L [facility] Comment: Please note: ??Patients with WBC >100,000 may have falsely elevated Potassium levels. ??For accurate Potassium quantification in these patients send serum separator tube (gold top) for subsequent determinations. ??Contact the Clinical Chemistry Laboratory if there are any questions. Chloride 101 98 - 107 mmol/L [facility] Carbon Dioxide 28 22 - 31 mmol/L [facility] Anion Gap 8 5 - 15 mmol/L [facility] Calcium 9.9 8.5 - 10.5 mg/dL [facility] Est Glomerular Filtration Rate 69 >=60 mL/min/1. 73 m?? [facility] Comment: This patient's estimated GFR [...] In Lab Edvin Sultana MD CHEMISTRY ORDERABLES [facility] [place] [address] documented in this encounter Visit Diagnoses Diagnosis [...] on Tue01/20/23 at 0945, Until Discontinued, Routine levothyroxine (Synthroid) tablet 150 mcg 150 mcg, [...] Given 01/19/2023 8:01 PM EDT 5 mLs sodium chloride 0.9% infusion 100 mL/hr, Intravenous, CONTINUOUS, Starting on Tue01/19/23 at 1315, Until Tue01/19/23 at 1814, Recovery (Recovery-Hospital Unit) New Bag 01/19/2023 1:26 PM EDT 100 mL/hr 100 mL /hr documented in this encounter Active and Recently Administered Medications Times are shown in EDT. Scheduled Medication Order 01/18/2023 01/19/2023 01/20/2023 aMILoride (Midamor) tablet 5 mg 5 mg, Oral, DAILY, First dose on Tue01/20/23 at 0900, Until Discontinued, Routine 09 (Given - Provid er: Nikole Busch RN) [...] on Tue01/19/23 at 1515, Until Discontinued, Routine 171 (Given - Provider: Eden Zavaleta RN) 927 (Given - Provider: Nikole Busch RN) furosemide (Lasix) tablet 40 mg 40 mg, Oral, DAILY, First dose on Tue01/20/23 at 0945, Until Discontinued, Routine 0945 (Not Given - Provider: Nikole Busch RN [...] Zavaleta RN) 926 (Given - Provider: Nikole Busch, SEBASTIAN) PARoxetine (Paxil) tablet 20 mg 20 mg, Oral, EVERY MORNING, First dose on Tue01/20/23 at 0700, Until Discontinued, DO NOT SPLIT, CRUSH OR OPEN, Routine 0750 (Given - Provid er: Nikole Busch, SEBASTIAN) senna-docusate (Pericolace) 8.6-50 mg per tablet 2 tablet 2 tablet, Oral, DAILY, First dose on Tue01/20/23 at 2100, Until Discontinued, Post-op day 1, Routine sodium chloride 0.9 % (flush) (BD PosiFlush Normal Saline 0.9) flush 5 mL 5 mL, Intravenous, 2 TIMES DAILY, First dose on Tue01/19/23 at 2100, Until Discontinued, Routine 2000 (Given - Provider: Devi Leon, SEBASTIAN) 09 (Given - Provider: Nikole Busch, SEBASTIAN) Continuous Medication Order 01/18/2023 01/19/2023 01/20/2023 sodium chloride 0.9% infusion () 100 mL/hr, Intravenous, CONTINUOUS, Starting on Tue01/19/23 at 1315, Until Tue01/19/23 at 1814, Recovery (Recovery-Hospital Unit) 1326 (New Bag - Provider: Sa ra Jes Verma RN)1900 (Stopped - Provider: Eden Zavaleta, SEBASTIAN) PRN Medication Order 01/18/2023 01/19/2023 01/20/2023 acetaminophen [...] indicated., Routine 1539 (Given - Provider: Eden Zavaleta, SEBASTIAN)2248 (Given - Provider: Devi Leon, SEBASTIAN) 09 (Given - Provider: Nikole Busch, SEABSTIAN) bisacodyL (Dulcolax) suppository 10 mg 10 mg, Rectal, DAILY PRN, Starting on 01/22/23 at 0000, Until Tue23 at 1455, Constipation, Starting post-op day 3., Routine iohexoL (Omnipaque) (350 mg/mL) solution (CANCELED) PRN, Starting on Tue01/19/23 at 1226, Until Tue01/19/23 at 1409, Intra-Operative (Intra-Procedure), Routine 1226 (Given - Provider: Edvin Sultana MD) lidocaine (Xylocaine) 1% (10 mg/mL) [...] on Tue01/19/23 at 1515, Until Discontinued, Give IL if unable to take PO, Routine Group [...] Routine documented in this encounter Care Teams [facility] Administrator Relationship Specialty Start Date End Date Jerzy Vidal MD [address] [place] [address] [place] [address] PCP - [facility] 12/04/18 documented as of this encounter
--- OUTSIDE RECORDS SUMMARY | 2024-02-24 01:14 | XMS_ITS | Encounter Summary ---
Author Organization [facility] [place] [address] Care Team Providers Care Erection Shop Supervisor Name Role Phone Jerzy Vidal MD Primary Care Provider [phone] Reason for Visit * Auth/Cert (Routine) Specialty [...] (WRVU 22.47) TRANSESOPHAGEAL ECHO DURING CATH/EP PROCEDURE Roddy Sultana MD [facility] [address] [facility] Referral ID Status Reason Start Date Expiration Date Visits Re quested Visits Authorized [id number] 1 1 Encounter Details Date Type Department Care Team (Late st Contact Info) Description 01/19/2023 11:35 AM EDT Anesthesia [place] [address] Ryan Valentino MD [facility] [place] [address] Rodolfo Nam, [facility] [place] [address] Anesthesia Record Procedure Summary Procedure Name Responsible Anesthesiologist Anesthesia Start Time Anesthesia Stop Time CARDIAC CATHETERIZATION Ryan Valentino MD 01/19/23 1135 01/19/23 1245 Events Date Time Event Comment 01/19/2023 1123 1135 Start 1135 An Start Data 1143 AN Verify 1143 An Induction 1145 Anesthesia Ready 1153 Procedure Start 1201 Test Transvenous Pacing 1204 Heparin 1223 Rapid Ventricular Pacing 1225 Rapid Ventricular Pacing 1225 Ao Valve Deployment 1227 Protamine 1245 an stop data 1245 Transport 1245 Recovery or ICU Handoff Caty ent care was transferred to the destination unit staff after review of the patient's medical history, current anesthetic/surgical status and plan, according to the Provider Handoff Checklist. 1245 Stop Meds Name Total Midazolam 2 mg fentaNYL 100 mcg Propofol INF 136.42 mg Heparin 8,000 Units Protamine 50 mg cefTRIAXone 2 g Vancomycin 1 g Lactated Ringers 700 mL * Agents Name O2 Air N2O O2 Auxiliary Flowmeter 1 * Blood No blood administrations on file. Lines, Drains, and Airways Type Details Placement Removal (RETIRED) Implanted Port - Single Lumen (non-apheresis) 05/20/17; 1200; infraclavicular fossa, right; pressure injectable catheter; superior vena cava; NCH; Port NOT accessed, site heakthy; 01/20/23; 1150 05/20/17 1200 by Marguerite Calvo RN 01/20/23 1150 by Nikole Busch RN Wound 10/22/22; 2250; Righ t, anterior, lower; leg; blister(s); from weeping edema; 01/20/23; 1150 10/22/22 2250 by Ruben Licona RN 01/20/23 1150 by Nikole Busch RN Wound 10/22/22; 2250; Left , anterior, lower; leg; blister(s); From weeping edema; 01/20/23; 1151 10/22/22 2250 by Ruben Licona RN 01/20/23 1151 by Nikole Busch RN Incision 10/28/22; 1649; Righ t, midline; back; non-laparascopic puncture; thoracentesis - right; 01/20/23; 1151 10/28/22 1649 by Renetta Shah RN 01/20/23 1151 by Nikole Busch RN Incision 11/02/22; 1011; Righ t; back; non-laparascopic puncture; thoracentesis puncture; 01/20/23; 1151 11/02/22 1011 by Corrie Bradley RN 01/20/23 1151 by Nikole Busch RN (RETIRED) Peripheral IV Line - Single Lumen 01/19/23; 1105; basilic vein (medial side of arm), left; [id number] catheter system; 18 gauge, 1 in length; Roberto CORTES; distraction; Patient discharging; no longer indicated, site care per policy/procedure, catheter/device intact; 01/20/23; 1150 01/19/23 1105 by Sonya Ramesh RN 01/20/23 1150 by Nikole Busch RN LDA Cath/EP Sheath 01/19/23; 1156; 7 Fr ench (Fr); Left; Femoral; Arterial 01/19/23 1156 by Lisa Sarabia RN 01/19/23 1230 by Rajesh Roque RN LDA Cath/EP Sheath 01/19/23; 1156; 14 F rench (Fr); Right; Femoral; Arterial 01/19/23 1156 by Lisa Sarabia RN 01/19/23 1227 by Rajesh Roque RN LDA Cath/EP Sheath 01/19/23; 1157; 6 Fr ench (Fr); Left; Femoral; Venous 01/19/23 1157 by Lisa Sarabia RN 01/19/23 1230 by Rajesh Roque RN documented in this encounter Social History Tobacco Use Types Packs/Day Years Used Date Smoking Tobacco: Never Smokeless Tobacco: Never Alcohol Use Standard Drinks/Week Comments Never 0 (1 standard drink = 0.6 oz pur e alcohol) [facility] Inpatient Questions Answer Date Recorded Does Anyone [...] on file documented as of this encounter OR Notes * Anesthesia Postprocedure Evaluation - Ryan Valentino MD - 01/19/2023 12:45 PM EDT Department of Anesthesiology Post-procedure Note Patient: Monica Jaramillo Procedure Summary Date: 01/19/23 Room / Location: [facility] [address] [place] [address] CATH LABS Anesthesia Start: 1135 Anesthesia Stop: 1245 Procedures: CARDIAC CATHETERIZATION COMBINED RIGHT & LEFT HEART CATH,INC INJ FOR L VENTRICULOGRAPHY (WRVU 5.99) @TRANSCATHETER AORTIC VALVE REPLACEMENT (TAVR), PERCUTANEOUS FEMORAL (WRVU 22.47) TRANSESOPHAGEAL ECHO DURING CATH/EP PROCEDURE Diagnosis: Severe aortic stenosis (Severe aortic stenosis [I35.0]) Providers: Roddy Sultana MD; Chavez Hodges MD; Wilfred Dozier MD Responsible Provider: Ryan Valentino MD Anesthesia Type: MAC ASA Status: 4 All Anesthesia Providers: Anesthesiologist: Ryan Valentino MD Control And Recovery Special Tactics: Rodolfo Nam DO Vitals Value Taken Time BP Temp Pulse Resp SpO2 Pain Level Patient Location: PACU/[facility] Level of Consciousness: Awake and Alert Pain Management: Satisfactory Analgesia PONV: None Cardiovascular Status: At Baseline and Hemodynamically Stable Respiratory Status: Stable Respiratory Status and Supplemental O2 (NC or FM) Postoperative Fluid Status: Possible Anesthetic Complications: NONE apparent at time of evaluation Final Primary Anesthesia Type: MAC (The anesthetic type performed was the same as planned.) Comments: Rodolfo Nam DO * Anesthesia Preprocedure Evaluation - Ryan Valentino MD - 01/18/2023 10:28 PM EDT Images from the original note were not included. Pre-Anesthesia Evaluation for: Monica Jaramillo a 67 y.o. female. Procedure(s): CARDIAC CATHETERIZATION COMBINED RIGHT & LEFT HEART CATH,INC INJ FOR L VENTRICULOGRAPHY (WRVU 5.99) @TRANSCATHETER AORTIC VALVE REPLACEMENT (TAVR), PERCUTANEOUS FEMORAL (WRVU 22.47) TRANSESOPHAGEAL ECHO DURING CATH/EP PROCEDURE Patient Active Problem List Diagnosis Date Noted ??? Congestive heart failure, unspecified HF chronicity, unspecified heart failure type 11/23/2022 ??? 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 Abnormal uterine bleeding 01/18/2020 ??? Pancytopenia 12/04/2018 ??? Atrial fibrillation 12/04/2018 ??? Essential hypertension 12/04/2018 ??? Hypothyroidism 12/04/2018 ??? 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 Atrial fibrillation ??? HTN (hypertension) ??? Obesity ??? Thymic cancer 04/2017 ??? 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 Ventral hernia Past Surgical History: Procedure Laterality Date ??? APPENDECTOMY 2002 ??? BREAST BIOPSY ??? SECTION ??? HERNIA REPAIR 2006 ??? IR THORACENTESIS RIGHT 10/28/2022 IR Thoracentesis Right 10/28/2022 John Durand MD [facility] INTERVENTIONL RAD ??? IR THORACENTESIS RIGHT 11/02/2022 IR Thoracentesis Right 11/02/2022 Laxmi Felix PA [facility] INTERVENTIONL RAD ??? SOFT TISSUE BIOPSY 03/22/2017 ??? THORACENTESIS Social History Tobacco Use ??? Smoking status: Never ??? Smokeless tobacco: Never Substance Use Topics ??? Alcohol use: Never Social History Substance and Sexual Activity Drug Use Never Allergies Allergen Reactions ??? Kiwi (Actinidia Chinensis) Itching and Other (See Comments) Mouth swelling ??? Carboplatin ??? Penicillins Hives ??? Pollen Extracts Other (See Comments) rhinorrhea Medications: MAR and/or home medications have been reviewed. Physical Exam: Preprocedure Vitals Current as of 01/18/23 2228 No BP, pulse, respiration, SpO2, or temperature recorded. Height: Weight: BMI: IBW: Airway Assessment: Mallampati: II TM distance: >3 FB Neck ROM: full Cardiovascular Assessment: Rhythm: regular Rate: normal (+) murmur Pulmonary Assessment: breath sounds clear to auscultation Dental Assessment: Misc Assessment: IV access: Peripheral line Last Filed Perioperative Cognitive Screening None Anesthesia Plan: ASA 4 MAC, with a(n) intravenous induction Monica Jaramillo is a 67 y.o. female with severe presenting for TAVR, heart cath, echo PMH significant for thymic carcinoma, pancytopenia, atrial fibrillation, HTN, hypothyroidism, HFrEF Labs from 12/2022 and 01/2023 reviewed and notable for hgb 9.0, Cr 1.15, otherwise grossly unremarkable ADR: -- Kiwi (Actinidia Chinensis) -- Itching and Other (See Comments) -- Mouth swelling -- Carboplatin -- Penicillins -- Hives -- Pollen Extracts -- Other (See Comments) -- rhinorrhea Cardiac Hx: 10/26/22 TTE Interpretation Summary There is severe aortic stenosis. The mean gradient across the aortic valve is 48. The aortic valve area calculated using the continuity equation is 0.64 cm2. Left ventricular ejection fraction is estimated visually at 65%. Right ventricle is moderately dilated. Right ventricular systolic function is mildly decreased. The peak right ventricular systolic pressure is 33 mmHg plus RA presssure. There is a small posterior pericardial effusion. See report for additional findings. Anesthesia Hx: No prior anesthetic or airway records Plan Pre-op tylenol Standard ASA monitors GA vs MAC A-line Appropriate IV access Intra-op echocardiogram TTE vs DIA PONV ppx Risks, benefits, and alternatives discussed with patient including but not limited to dental, airway, lip injury, vascular injury, nerve injury, thrombosis, eye injury, blindness, adverse drug reactions, heart attack, stroke, intraoperative demise among others. All questions answered to patients sat isfaction. Region - Intrathoracic Cardiac Informed Consent: Anesthetic plan and risks discussed with patient and daughter/son. Use of blood products discussed with patient and daughter/son who consented to blood products. Plan discussed with attending and resident. Anesthesia Screening documented in this encounter Plan of Treatment Upcoming Encounters Date Type Department Care Team (Late st Contact Info) Description 02/24/2024 9:00 AM EDT Office Visit Hematology/Oncology at [address] [phone] Shon Schneider MD [facility] [address] [address] HEMATOLOGY AND ONCOLOGY [place], [place] [address] [phone] 02/24/2024 9:30 AM EDT Infusion Hematology Oncology at [address] [phone] 03/02/2024 11:00 AM EDT Office Visit Hematology/Oncology at [address] [phone] Shon Schneider MD [facility] [address] HEMATOLOGY AND ONCOLOGY [place], [place] [address] 03/02/2024 12:30 PM EDT Infusion Hematology Oncology at [address] [phone] 03/09/2024 10:00 AM EDT Office Visit Hematology/Oncology at [address] [phone] Shon Schneider MD [facility] [place] [address] Ciara Pitts [address] HEMATOLOGY AND ONCOLOGY [place], [place] [phone] 03/09/2024 10:30 AM EDT Infusion Hematology Oncology at [address] [phone] documented as of this encounter Goals Goal Patient Goal Type Associated Problems Recent Progress Patient-Stated? Author DH Home Medication Compliance and Understanding Patient Facing Action Plan On track( 019 3:22 PM EST) Ivana Ashraf, [facility] Note: Remain 95% or better adherent to chemotherapy without severe side effects as assessed by days supply and patient reported adverse events at each refill documented as of this encounter Visit Diagnoses Not on filedocumented in this encounter Administered Medications Inactive Administered Medications - up to 3 most recent administrations Medication Order MAR Action Action Date Dose Rate Site cefTRIAXone (Rocephin) injection Intravenous, PRN, Starting on Tue01/19/23 at 1140, Until Tue01/19/23 at 1245, Anesthesia Intra-op, Routine Given 01/19/2023 11:40 AM EDT 2 g fentaNYL (pf) (50 mcg/mL) multi-dose injection Intravenous, PRN, Starting on Tue01/19/23 at 1147, Until Tue01/19/23 at 1245, Anesthesia Intra-op, Routine Given 01/19/2023 12:35 PM EDT 25 mcg Given 01/19/2023 12:05 PM EDT 25 mcg Given 01/19/2023 11:52 AM EDT 25 mcg heparin (porcine) (1,000 units/mL) injection Intravenous, PRN, Starting on Tue01/19/23 at 1204, Until Tue01/19/23 at 1245, Anesthesia Intra-op, Routine Given 01/19/2023 12:04 PM EDT 8,000 Un its lactated ringers infusion Intravenous, CONTINUOUS PRN, Starting on Tue01/19/23 at 1135, Until Tue01/19/23 at 1245, Anesthesia Intra-op New Bag 01/19/2023 11:35 AM EDT midazolam (pf) (Versed) (1 mg/mL) multi-dose injection Intravenous, PRN, Starting on Tue01/19/23 at 1147, Until Tue01/19/23 at 1245, Anesthesia Intra-op, Routine Given 01/19/2023 12:35 PM EDT 0.5 mg Given 01/19/2023 12:05 PM EDT 0.5 mg Given 01/19/2023 11:52 AM EDT 0.5 mg propofoL (Diprivan) (10 mg/mL) infusion Intravenous, CONTINUOUS PRN, Starting on Tue01/19/23 at 1140, Until Tue01/19/23 at 1245, Anesthesia Intra-op, Routine New Bag 01/19/2023 11:40 AM EDT 30 mcg/kg/min 16.704 mL/hr protamine (10 mg/mL) injection Intravenous, PRN, Starting on Tue01/19/23 at 1227, Until Tue01/19/23 at 1245, Anesthesia Intra-op, Routine Given 01/19/2023 12:27 PM EDT 50 mg vancomycin (Vancocin) injection Intravenous, PRN, Starting on Tue01/19/23 at 1140, Until Tue01/19/23 at 1245, Anesthesia Intra-op, Routine Given 01/19/2023 11:40 AM EDT 1 g documented in this encounter Care Teams Erection Shop Supervisor Relationship Specialty Start Date End Date Jerzy Vidal MD [address] [place] [address] [place] [address] PCP - [facility] Medicine 12/04/18 documented as of this encounter
--- OUTSIDE RECORDS SUMMARY | 2024-02-24 01:14 | XMS_ITS | Encounter Summary ---
Author Organization [facility] Address [facility] [place] [address] Care Team Providers Care Gag Writer Name Role Phone Jerzy Vidal MD Primary Care Provider Reason for Visit * Reason Comments Medication Refill Encounter Details Date Type Department Care Team (Late st Contact Info) Description 02/05/2023 Refill Hematology [place] [phone] Shon Schneider MD [facility] [place] [address] Hypokalemia Social History Tobacco Use Types Packs/Day Years Used Date Smoking Tobacco: Never Smokeless Tobacco: Never Alcohol Use Standard Drinks/Week Comments Never 0 (1 standard drink = 0.6 oz pur e alcohol) [facility] Inpatient Questions Answer Date Recorded [...] encounter Miscellaneous Notes * Telephone Encounter - Beti Tejada RN - 02/07/2023 10:05 AM EDT Received request via [employer] for refill of potassium chloride ER Take 1 tablet by mouth daily., Disp-30 tablet, R-5, Normal Last prescribed 01/21/2022. Script prepared and sent to provider for review, signature an escribe. documented in this encounter Plan of Treatment Upcoming Encounters Date Type Department Care Team (Late st Contact Info) Description 02/24/2024 9:00 AM EDT Office Visit Hematology/Oncology at [address] [phone] Shon Schneider MD [facility] [place] [address] [address] [place] [address] 02/24/2024 9:30 AM EDT Infusion Hematology Oncology at [address] [phone] 03/02/2024 11:00 AM EDT Office Visit Hematology/Oncology at [address] [phone] Shon Schneider MD [facility] [place] [address] [address] [place] [address] 03/02/2024 12:30 PM EDT Infusion Hematology Oncology at [address] [phone] 03/09/2024 10:00 AM EDT Office Visit Hematology/Oncology at [address] [phone] Shon Schneider MD [facility] [place] [address] Ciara Pitts APRN [address] [place] [address] DR HEMATOLOGY AND ONCOLOGY [place], [place] [phone] 03/09/2024 10:30 AM EDT Infusion Hematology Oncology at [address] [phone] documented as of this encounter Goals Goal Patient Goal Type Associated Problems Recent Progress Patient-Stated? Author DH Home Medication Compliance and Understanding Patient Facing Action Plan On track( 019 3:22 PM EST) No Ivana Vanegas, [facility] Note: Remain 95% or better adherent to chemotherapy without severe side effects as assessed by days supply and patient reported adverse events at each refill documented as of this encounter Visit Diagnoses Diagnosis Hypokalemia Hypopotassemia Thymic carcinoma Malignant neoplasm of thymus documented in this encounter Care Teams Gag Writer Relationship Specialty Start Date End Date Jerzy Vidal MD [address] [place] [address] [place] [address] [facility] 12/04/18 documented as of this encounter
--- OUTSIDE RECORDS SUMMARY | 2024-02-24 01:15 | XMS_ITS | Encounter Summary ---
Author Organization [facility] [place] [address] Care Team Providers Care Manpower Development Specialist Name Role Phone Jerzy Vidal MD Primary Care Provider [phone] Encounter Details Date Type Department Care Team (Late Contact Info) Description 11/30/2022 Telephone Hematology [place] [phone] Shon Schneider MD [facility] [place] [address] Social History Tobacco Use Types Packs/Day Years Used Date Smoking Tobacco: Never Smokeless Tobacco: Never Alcohol Use Standard Drinks/Week Comments Never 0 (1 standard drink = 0.6 oz pur e alcohol) Sex and Gender Information Value Date Recorded Sex Assigned at Not on file Gender Identity Not on file Sexual Orientation Not on file documented as of this encounter Plan of Treatment Upcoming Encounters Date Type Department Care Team (Late Contact Info) Description 02/24/2024 9:00 AM EDT Office Visit Hematology/Oncology at [address] [phone] Shon Schneider MD [facility] [place] [address] Ciara Pitts APRN [address] [place] [address] DR HEMATOLOGY AND ONCOLOGY [place], [place] [phone] 02/24/2024 9:30 AM EDT Infusion Hematology Oncology at [address] [phone] 03/02/2024 11:00 AM EDT Office Visit Hematology/Oncology at [address] [phone] Shon Schneider MD [facility] [place] [address] [address] HEMATOLOGY AND ONCOLOGY [place], [place] [phone] 03/02/2024 12:30 PM EDT Infusion Hematology Oncology at [address] [phone] 03/09/2024 10:00 AM EDT Office Visit Hematology/Oncology at [address] [phone] Shon Schneider MD [facility] [place] [address] [address] HEMATOLOGY [place] [address] 03/09/2024 10:30 AM EDT Infusion Hematology Oncology at [address] [phone] documented as of this encounter Goals Goal Patient Goal Type Associated Problems Recent Progress Patient-Stated? 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
--- OUTSIDE RECORDS SUMMARY | 2024-02-24 01:15 | XMS_ITS | Encounter Summary ---
Author Organization [facility] [place] [address] Care Team Providers Care Supervisor Hand Silvering Name Role Phone Jerzy Vidal MD Primary Care Provider [phone] Encounter Details Date Type Department Care Team (Late Contact Info) Description 11/19/2022 Orders Only Hematology [place] [address] Salvatore Mchugh MD [facility] [address] [place] [address] Normocytic anemia; Other feeding difficulties Social History Tobacco Use Types Packs/Day Years [...] 9:00 AM EDT Office Visit Hematology/Oncology at [address] [phone] Shon Schneider MD [facility] [place] [address] Ciara Pitts APRN [address] [place] [address] DR HEMATOLOGY [place] [address] 02/24/2024 9:30 AM EDT Infusion Hematology Oncology at [address] [phone] 03/02/2024 11:00 AM EDT Office Visit Hematology/Oncology at [address] [phone] Shon Schneider MD [facility] [place] [address] [address] HEMATOLOGY AND ONCOLOGY [place], [place] [address] 03/02/2024 12:30 PM EDT Infusion Hematology Oncology at [address] [phone] 03/09/2024 10:00 AM EDT Office Visit Hematology/Oncology at [address] [phone] Shon Schneider MD [facility] [place] [address] [address] HEMATOLOGY [place] [address] 03/09/2024 10:30 AM EDT Infusion Hematology Oncology at [address] [phone] documented as of this encounter Goals Goal [...] each refill documented as of this encounter Results * Vitamin B12 (11/23/2022 12:01 PM EDT) Vitamin B12 397 232 - 1,245 pg/mL [facility] Blood 11/23/2022 12:0 1 PM EDT 11/23/2022 12:14 PM EDT Narrative Resulting Agency Comment Spec In Lab Salvatore Mchugh MD CHEMISTRY ORDERABL ES Performing Organization Address [facility] Co de Phone Number [facility] [place] [place] [address] * (ABNORMAL) Reticulocyte Count (11/23/2022 12:01 PM EDT) Reticulocyte % 2.2 0.7 - 2.5 % [facility] Retic Abs # 0.050 0.020 - 0.110 x10(6)/mcL [facility] Immature Retic% 17.2(H) 0.5 - 13.8 % [facility] Reticulated Hgb 33.9 29.8 - 39.4 pg [facility] Blood 11/23/2022 12:0 1 PM EDT 11/23/2022 12:14 PM EDT Narrative Resulting Agency Comment Spec In Lab Salvatore Mchugh MD HEMATOLOGY ORDERAB LES Performing Organization Address [facility] Co de Phone Number [facility] [place] [place] [address] * Lactate Dehydrogenase (11/23/2022 12:01 PM EDT) Lactate Dehydrogenase 202 110 - 220 unit/L [facility] Blood 11/23/2022 12:0 1 PM EDT 11/23/2022 12:14 PM EDT Narrative Resulting Agency Comment Spec In Lab Salvatore Mchugh MD CHEMISTRY ORDERABL ES Performing Organization Address [facility] Co de Phone Number [facility] [place] [address] * (ABNORMAL) Iron and TIBC (11/23/2022 12:01 PM EDT) Iron 40 30 - 150 mcg/dL [facility] TIBC 123(L) 250 - 450 mcg/dL [facility] Iron Saturation 33 20 - 50 % [facility] Blood 11/23/2022 12:0 1 PM EDT 11/23/2022 12:14 PM EDT Narrative Resulting Agency Comment Spec In Lab Salvatore Mchugh MD CHEMISTRY ORDERABL ES Performing Organization Address City/[facility]/ZIP Co de Phone Number [facility] [place] [address] * (ABNORMAL) Haptoglobin (11/23/2022 12:01 PM EDT) Haptoglobin 250(H) 30 - 200 mg/dL [facility] Comment: rerunning Haptoglobin concentrations in newborns is low to undetectable; however, adult concentrations are usually attained by 4 months of age. ??No sex-related differences for haptoglobin have been detected. Blood 11/23/2022 12:0 1 PM EDT 11/23/2022 12:14 PM EDT Narrative Resulting Agency Comment Spec In Lab Salvatore Mchugh MD CHEMISTRY ORDERABL ES Performing Organization Address [facility] Co de Phone Number [facility] [place] [address] * Folate, serum (11/23/2022 12:01 PM EDT) Folate 11.0 4.8 - 24.2 ng/mL [facility] Blood 11/23/2022 12:0 1 PM EDT 11/23/2022 12:14 PM EDT Narrative Resulting Agency Comment Spec In Lab Salvatore Mchugh MD CHEMISTRY ORDERABL ES Performing Organization Address City/[facility]/ZIP Co de Phone Number [facility] [place] [address] * (ABNORMAL) Ferritin (11/23/2022 12:01 PM EDT) Ferritin 4,166(H) 30 - 400 ng/mL [facility] Comment: Pediatric reference ranges not verified at [facility], interpret with caution. Reference ranges for females greater than 50 years of age approach values for men, i.e., 30-400 ng/mL. Blood 11/23/2022 12:0 1 PM EDT 11/23/2022 12:14 PM EDT Narrative Resulting Agency Comment Spec In Lab Salvatore Mchugh MD CHEMISTRY ORDERABL ES Performing Organization Address [facility]/ZIP Co de Phone Number [facility] [place] [place] [address] * Copper, serum (11/23/2022 12:01 PM EDT) [facility] Copper (OCTOBER) 149 77 - 206 mcg/dL [facility] Comment: ADDITIONAL INFORMATION This test was developed and its performance characteristics determined by [facility] in a manner consistent with CLIA requirements. This test has not been cleared or approved by the U.S. Food and Drug Administration. Test Performed by: [facility] [place] [address] Microfilm Clerk: Alex Cameron M.D. Ph.D.; CLIA# [id number] Blood 11/23/2022 12:0 1 PM EDT 11/23/2022 2:21 PM EDT Narrative Resulting Agency Comment Spec In Lab Salvatore Mchugh MD LAB SEND OUT ORDER DOM Performing Organization Address [facility]/ZIP Co de Phone Number [facility] [place] [place] [address] * (ABNORMAL) Comprehensive metabolic panel (non-fasting) (11/23/2022 12:01 PM EDT) [facility] Glucose 94 65 - 199 mg/dL [facility] Comment:Diabetes: >=200 mg/d L plus symptoms Blood Urea Nitrogen 19(H) 8 - 18 mg/dL [facility] Creatinine 0.86 0.70 - 1.20 mg/dL [facility] Sodium 136 135 - 145 mmol/L [facility] Potassium 3.1(L) 3.5 - 5.0 mmol/L [facility] Comment: Please note: ??Patients with WBC >100,000 may have falsely elevated Potassium levels. ??For accurate Potassium quantification in these patients send serum separator tube (gold top) for subsequent determinations. ??Contact the Clinical Chemistry Laboratory if there are any questions. Chloride 95(L) 98 - 107 mmol/L [facility] Carbon Dioxide 33(H) 22 - 31 mmol/L [facility] Anion Gap 8 5 - 15 mmol/L [facility] Calcium 9.3 8.5 - 10.5 mg/dL [facility] Protein, Total 7.5 6.1 - 8.0 g/dL [facility] Albumin 3.0(L) 3.2 - 5.2 g/dL [facility] Aspartate Aminotransferase 15 0 - 30 unit/L [facility] Alanine Aminotransferase 6 0 - 30 unit/L [facility] Alkaline Phosphatase 55 35 - 105 unit/L [facility] Bilirubin, Total 1.1 0.2 - 1.3 mg/dL [facility] Est Glomerular Filtration Rate 75 >=60 mL/min/1. 73 m?? [facility] Comment: This patient's estimated GFR [...] and symptoms in addition to eGFR. Blood 11/23/2022 12:0 1 PM EDT 11/23/2022 12:14 PM EDT Narrative Resulting Agency Comment Spec In Lab Salvatore Mchugh MD CHEMISTRY ORDERABL ES [facility] [place] [address] documented in this encounter Visit Diagnoses Diagnosis Normocytic anemia Anemia, unspecified Other feeding difficulties Thymic carcinoma Malignant neoplasm of thymus documented in this encounter Care Teams Supervisor Hand Silvering Relationship Specialty Start Date End Date Jerzy Vidal MD [address] [place] [address] [place] [address] PCP - [facility] Medicine 12/04/18 documented as of this encounter
--- OUTSIDE RECORDS SUMMARY | 2024-02-24 01:15 | XMS_ITS | Encounter Summary ---
Author Organization [facility] Address [facility] [place] [address] Care Team Providers Care Mime Artist Name Role Phone Jerzy Vidal MD Primary Care Provider [phone] Encounter Details Date Type Department Care Team (Latest Contact Info) Description 11/23/2022 Travel Social History Tobacco Use Types Packs/Day [...] 9:00 AM EDT Office Visit Hematology/Oncology at [address] [phone] Shon Schneider MD [facility] [place] [address] Ciara Pitts APRN [address] [place] [address] DR HEMATOLOGY AND ONCOLOGY [place], [place] [id number] 02/24/2024 9:30 AM EDT Infusion Hematology Oncology at [address] [phone] 03/02/2024 11:00 AM EDT Office Visit Hematology/Oncology at [address] [phone] Shon Schneider MD [facility] [place] [address] HEMATOLOGY AND ONCOLOGY [place], [place] [address] 03/02/2024 12:30 PM EDT Infusion Hematology Oncology at [address] [phone] 03/09/2024 10:00 AM EDT Office Visit Hematology/Oncology at [address] [place] [phone] Shon Schneider MD [facility] [place] [address] HEMATOLOGY AND ONCOLOGY [place], [place] [address] 03/09/2024 10:30 AM EDT Infusion Hematology Oncology at [address] [phone] documented as of this encounter Goals Goal Patient Goal Type Associated Problems Recent Progress Patient-Stated? Author DH Home Medication Compliance and Understanding Patient Facing Action Plan On track( 019 3:22 PM EST) Ivana Ashraf, [facility] Note: Remain 95% or better adherent to chemotherapy without severe side effects as assessed by days supply and patient reported adverse events at each refill documented as of this encounter Visit Diagnoses Not on filedocumented in this encounter Care Teams Mime Artist Relationship Specialty Start Date End Date Jerzy Vidal MD [address] [place] [address] [place] [address] PCP - [facility] Medicine 12/04/18 documented as of this encounter
--- OUTSIDE RECORDS SUMMARY | 2024-02-24 01:15 | XMS_ITS | Encounter Summary ---
Author Organization [facility] [place] [address] Care Team Providers Care Radio Interference Investigator Name Role Phone Jerzy Vidal MD Primary Care Provider [phone] Encounter Details Date Type Department Care Team (Late Contact Info) Description 01/06/2023 Ancillary Procedure [place] [address] Shon Schneider MD [facility] [place] [address] Social History Tobacco Use Types Packs/Day Years [...] 9:00 AM EDT Office Visit Hematology/Oncology at [address] [phone] Shon Schneider MD [facility] [place] [address] Ciara Pitts APRN [address] [place] [address] DR [place] [address] 02/24/2024 9:30 AM EDT Infusion Hematology Oncology at [address] [phone] 03/02/2024 11:00 AM EDT Office Visit Hematology/Oncology at [address] [phone] Shon Schneider MD [facility] [place] [address] HEMATOLOGY AND ONCOLOGY [place], [place] [address] 03/02/2024 12:30 PM EDT Infusion Hematology Oncology at [address] [phone] 03/09/2024 10:00 AM EDT Office Visit Hematology/Oncology at [address] [phone] Shon Schneider MD [facility] [place] [address] [address] [place] [address] 03/09/2024 10:30 AM EDT Infusion Hematology Oncology at [address] [phone] documented as of this encounter Goals Goal Patient Goal Type Associated Problems Recent Progress Patient-Stated? Author DH Home Medication Compliance and Understanding Patient Facing Action Plan On track( 019 3:22 PM EST) Ivana Ashraf, [facility] Note: Remain 95% or better adherent to chemotherapy without severe side effects as assessed by days supply and patient reported adverse events at each refill documented as of this encounter Procedures Procedure Name Priority Date/Time Associated Diagnosis Comments FILM LIBRARY STORAGE ONLY CT CHEST ABDOMEN PELVIS Routine 01/06/2023 12:00 AM EDT documented in this encounter Results * Film Library- Storage Only CT Chest Abdomen Pelvis (01/06/2023 12:00 AM EDT) Narrative [facility] - 01/07/2023 8:37 AM EDT This exam is auto-finalizing. It's purpose is for storage only. Shon Schneider MD IMG FILM LIBRARY ORD ERABLES [place], [place] documented in this encounter Visit Diagnoses Not on filedocumented in this encounter Care Teams Radio Interference Investigator Relationship Specialty Start Date End Date Jerzy Vidal MD [address] [place] [address] [place] [address] PCP - [facility] Medicine 12/04/18 documented as of this encounter
--- OUTSIDE RECORDS SUMMARY | 2024-02-24 01:15 | XMS_ITS | Encounter Summary ---
Author Organization Replaced By [facility] Address [facility] [place] [address] Care Team Providers Care Poultice Machine Operator Name Role Phone Jerzy Vidal MD Primary Care Provider [phone] Reason for Visit * Reason Onset Date Comments Follow-up 11/09/2022 48 hour post dis charge follow up call Encounter Details Date Type Department Care Team (Late st Contact Info) Description 11/09/2022 [place] [phone] Mark Roberson MA Follow-up (48 hour post discharge follow up call) Social History Tobacco Use Types Packs/Day Years [...] encounter Miscellaneous Notes * Telephone Encounter - Mark Roberson MA - 11/09/2022 12:02 PM EDT Post-Discharge Heart Failure Phone Note Interview status: Complete- last name and verified If patient not reached, delete the rest of message. Date of hospital discharge: 11/07/22 LOS: 16 days First home scale weight has not been checked yet, obtaining a scale today. Patient is adherent withFurosemide 80 mg qd. She has agreed to logging daily weights once scale is obtained and reminded ofinstructions to continue Lasix/Furosemide 80 mg qd for goal weight and if you are 2 pounds above goal weight then double your Lasix/Furosemide to 160 mg qd until back to goal weight. If you lose 2 pounds below goal weigh then halve Lasix/Furosemide to 40 mg qd until back to goal weight. in the coming weeks or until PCP adjusts target weight/instructions. On my call today 11/10/22, patient states she is feeling better. Not checking weights yet. Diuretic discharge instructions were discussed. She will call PCP to schedule hospital folllow up and she is aware of all upcoming appointments. Symptoms: Ask the patient: How are you doing now compared to your last day in the hospital? Better I am going to read to you a list of symptoms. Please let me know if you have experienced any of these problems worse than usual since we last spoke with you? - Fatigue: No - Shortness of breath at rest: No - Exertional shortness of breath: No - Lower extremity edema: No - Abdominal distention: No If the patient endorses any of the above symptoms, ask the patient: Since we last spoke, have you spoken with a provider about your symptoms? No Read original heart failure instructions: If you are within safety range of goal weight then continue your Lasix/Furosemide 80 mg qd, if you are 2 pounds above goal weight then double your Lasix/Furosemide to 160 mg qd until back to goal weight. If you lose 2 pounds below goal weigh then halve Lasix/Furosemide to 40 mg qd until back to goal weight. Weights: Weight at discharge: Wt Readings from Last 1 Encounters: 11/07/22 90.1 kg (198 lb 10.2 oz) Do you have access to a scale? No- patient is picking up a scale this afternoon. Have you been weighing and do you have a place you can record your weights? No- patient will begin home weights tomorrow morning. First home weight (lb)? Not checked yet Current weight (lb)? Not checked yet Do you have (name of diuretic) accessible to you? Yes- Furosemide 80 mg qd Do you have contact information for your PCP or Spice Room Worker or Home Health Agency? Yes- patient will call to schedule hospital follow up appointment with PCP Please say yes or no to indicate whether you acknowledge the following: - Do you know when your PCP and/or cardiology follow up appointment(s) are? Yes - Do you have transportation to and from that appointment? Yes - Did this encounter lead to a message or call to the provider? No Expected time of next check in: 1 week documented in this encounter Plan of Treatment Upcoming Encounters Date Type Department Care Team (Late st Contact Info) Description 02/24/2024 9:00 AM EDT Office Visit Hematology/Oncology at [address] [phone] Shon Schneider MD [facility] [address] [place] [address] 02/24/2024 9:30 AM EDT Infusion Hematology Oncology at [address] [phone] 03/02/2024 11:00 AM EDT Office Visit Hematology/Oncology at [address] [phone] Shon Schneider MD [facility] [place] [address] HEMATOLOGY AND ONCOLOGY [place], [place] [address] 03/02/2024 12:30 PM EDT Infusion Hematology Oncology at [address] [phone] 03/09/2024 10:00 AM EDT Office Visit Hematology/Oncology at [address] [phone] Shon Schneider MD [facility] [place] [address] Ciara Pitts APRN [address] [place] [address] DR HEMATOLOGY AND ONCOLOGY [place], [place] [address] 03/09/2024 10:30 AM EDT Infusion Hematology Oncology at [address] [phone] documented as of this encounter Goals Goal Patient Goal Type Associated Problems Recent Progress Patient-Stated? Author DH Home Medication Compliance and Understanding Patient Facing Action Plan On track( 019 3:22 PM EST) No Ivana Vanegas, [facility] Note: Remain 95% or better adherent to chemotherapy without severe side effects as assessed by days supply and patient reported adverse events at each refill documented as of this encounter Visit Diagnoses Not on filedocumented in this encounter Care Teams Poultice Machine Operator Relationship Specialty Start Date End Date Jerzy Vidal MD [address] [place] [address] [place] [address] PCP - [facility] Medicine 12/04/18 documented as of this encounter
--- OUTSIDE RECORDS SUMMARY | 2024-02-24 01:15 | XMS_ITS | Encounter Summary ---
Author Organization [facility] Address [facility] [place] [address] Care Team Providers Care Settlement Processor Name Role Phone Jerzy Vidal MD Primary Care Provider Encounter Details Date Type Department Care Team (Late st Contact Info) Description 12/10/2022 1:00 PM EDT TH Visit (TeleHealth) Hematology/Oncology at [address] [phone] Shon Schneider MD [facility] [place] [address] Ciara Pitts APRN [address] [place] [address] DR HEMATOLOGY AND ONCOLOGY [place], [place] [id number] Thymic carcinoma Social History Tobacco Use Types [...] Progress Notes * Shon Schneider MD - 12/10/2022 1:00 PM EDT Subjective: Patient ID: Monica Jaramillo [...] pleural effusion with compression atelectasis. transferred to [facility] for further evaluation and workup and had [...] B. 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 [facility] - CONSULT SLIDES FROM [facility]; [facility] [place]: A. 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 Immunohistochemistry performed at the outside institution and reviewed at [facility] demonstrates the following staining profile in lesional cells: Positive - AE1/AE3, p40, PAX8, CD117, CD5(multifocal), CK7(scattered cells), synaptophysin, chromogranin Negative - CK20, TTF-1, GATA3, CD34 The immunohistochemical profile supports the above diagnosis. Ki67 (MIB-1) proliferation index performed at the referring institution and reviewed at [facility] is focally up to ~30%. 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 The extent of PAX8 and CD117 staining would be unusual for Nut carcinoma. B. MEDIASTINUM, ANTERIOR, 4.5 CM, ULTRASOUND GUIDED FINED NEEDLE ASPIRATION ([id number]; 03/22/17): The cytologic preparations were not reviewed [...] Second opinion with Dr. Roddy Vega in [place]. They reviewed the pathology and concurred they [...] therapy with pembrolizumab L. CT c/a/p 11/06/19 ([facility] second read) - IMPRESSION 1. Worsening left-sided [...] pleural effusions moderate right and small left. 2. H/o atrial fibrillation 3. HTN 4.Severe [...] There is a small posterior pericardial effusion. HPI Monica Jaramillo is seen in f/u thymic carcinoma. The history is summarized above. Monica was admitted to [facility] from 10/22 to 11/07/22. She had presented [...] day of discharge was 191,000, Hgb- 7.6. Labs from 11/17 showed a Hgb of 6.3, MCV - 101.5. The plts were 118,000 and the WBC was 7.0 with unremarkable differential. The bilirubin was WNL, creatinine was 1.03. She went to the ED and received ablood transfusion. Today's visit was changed to a phone visit because Monica needs to leave shortly for blood transfusion. She is feeling well overall. No SOB. The LE edema is much better. Soc Hx: , lives in [place], [place] Tob - Never Etoh - rare [...] reviewed and are negative. Objective: Physical Exam Neurological: Mental Status: She is alert. Labs: (12/10/22): WBC/ANC - 2.10/1599, Hgb/Hct - 7.1/22.7, Plts - 192,000. BUN/Cr - 17/1.06. a - 134,K - 3.2, Alb - 2.5. Lytes and [...] - 17.8/50, Plts - 151,000. BUN/Cr - 1.3. Na - 133, Mg - 1.4, Alb [...] pembrolizumab. I spoke with Dr. Vega at [facility]. There were no clinical trials [...] spoke with Dr. Shon Ramon at [facility] [place]. He agreed that gemcitabine plus capecitabine is [...] reduced by 50%. Monica was admitted to [facility] from 10/22 to 11/07/22. She had presented [...] day of discharge was 191,000, Hgb- 7.6. She continues to be anemic. The Hgb from 12/09/22 was 7.1. We will go ahead with a transfusion of 1 unit PRBCs. The WBC is low. The plts, which had dropped, have gone back up. The etiology of the persistent anemia is unclear. Will continue to follow closely. In terms of the cancer, we are continuing to hold off on therapy at this time. We will plan a restaging CT scan in late December. TAVR is scheduled on 01/19/23. I provided care to the patient today via telephone call. The total time associated with this visit was 20 minutes. documented in this encounter Plan of Treatment Upcoming Encounters Date Type Department Care Team (Late st Contact Info) Description 02/24/2024 9:00 AM EDT Office Visit Hematology/Oncology at [address] [phone] Shon Schneider MD [facility] [place] [address] Ciara Pitts APRN [address] [place] [address] H[place] [address] 02/24/2024 9:30 AM EDT Infusion Hematology Oncology at [address] [phone] 03/02/2024 11:00 AM EDT Office Visit Hematology/Oncology at [address] [phone] Shon Schneider MD [facility] [address] HEMATOLOGY AND ONCOLOGY [place], [place] [address] 03/02/2024 12:30 PM EDT Infusion Hematology Oncology at [address] [phone] 03/09/2024 10:00 AM EDT Office Visit Hematology/Oncology at [address] [phone] Shon Schneider MD [facility] [place] [address] HEMATOLOGY AND ONCOLOGY [place], [place] [id number] 03/09/2024 10:30 AM EDT Infusion Hematology Oncology at [address] [phone] documented as of this encounter Goals Goal Patient Goal Type Associated Problems Recent Progress Patient-Stated? Author DH Home Medication Compliance and Understanding Patient Facing Action Plan On track( 019 3:22 PM EST) Ivana Ashraf, [facility] Note: Remain 95% or better adherent to chemotherapy without severe side effects as assessed by days supply and patient reported adverse events at each refill documented as of this encounter Procedures Procedure Name Priority Date/Time Associated Diagnosis Comments RETICULOCYTE COUNT Routine 12/09/2022 CBC (WITH DIFF) Routine 12/09/2022 documented in this encounter Results * CBC (with Diff) (12/09/2022) White Blood Cell 2.5 Hemoglobin 7.1 Hematocrit 22.7 Platelet 192 Neutrophil Absolute (ANC) - Automated 1.6 Blood 12/09/2022 Historical Provider HEMATOLOGY ORDERA BLES * Reticulocyte Count (12/09/2022) Reticulocyte % 3.5 Blood 12/09/2022 Historical Provider HEMATOLOGY ORDERA BLES documented in this encounter Visit Diagnoses Diagnosis 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 documented in this encounter Care Teams Settlement Processor Relationship Specialty Start Date End Date Jerzy Vidal MD [address] [place] [address] [place] [address] PCP - [facility] 12/04/18 documented as of this encounter
--- OUTSIDE RECORDS SUMMARY | 2024-02-24 01:15 | XMS_ITS | Encounter Summary ---
Author Organization [facility] Address [facility] [place] [address] Care Team Providers Care Pulper Name Role Phone Jerzy Vidal MD Primary Care Provider [phone] Encounter Details Date Type Department Care Team (Latest Contact Info) Description 01/07/2023 Travel Social History Tobacco Use Types Packs/Day [...] AM EDT Office Visit Hematology/Oncology at [address] [phone] Shon Schneider MD [facility] [place] [address] Ciara Pitts APRN [address] [place] [address] DR HEMATOLOGY AND ONCOLOGY [place], [place] [phone] 02/24/2024 9:30 AM EDT Infusion Hematology Oncology at [address] [phone] 03/02/2024 11:00 AM EDT Office Visit Hematology/Oncology at [address] [phone] Shon Schneider MD [facility] [place] [address] HEMATOLOGY AND ONCOLOGY [place], [place] [address] 03/02/2024 12:30 PM EDT Infusion Hematology Oncology at [address] [phone] 03/09/2024 10:00 AM EDT Office Visit Hematology/Oncology at [address] [place] [phone] Shon Schneider MD [facility] [place] [address] HEMATOLOGY AND ONCOLOGY [place], [place] [address] 03/09/2024 10:30 AM EDT Infusion Hematology Oncology at [address] [phone] documented as of this encounter Goals Goal [...] on filedocumented in this encounter Care Teams Pulper Relationship Specialty Start Date End Date Jerzy Vidal MD [address] [place] [address] [place] [address] PCP - [facility] 12/04/18 documented as of this encounter
--- OUTSIDE RECORDS SUMMARY | 2024-02-24 01:15 | XMS_ITS | Encounter Summary ---
Author Organization [facility] [place] [address] Care Team Providers Care Proofer Black And White Name Role Phone Jerzy Vidal MD Primary Care Provider [phone] Encounter Details Date Type Department Care Team (Late Contact Info) Description 11/25/2022 Notes Only Cardiology at [address] [phone] Roddy Sultana MD [facility] [place] [address] Social History Tobacco Use Types Packs/Day Years Used Date Smoking Tobacco: Never Smokeless Tobacco: Never Alcohol Use Standard Drinks/Week Comments Never 0 (1 standard drink = 0.6 oz pur e alcohol) Sex and Gender Information Value Date Recorded Sex Assigned at Not on file Gender Identity Not on file Sexual Orientation Not on file documented as of this encounter Progress Notes * Tala Franz RN - 11/25/2022 10:56 AM EDTSummary: Structural Heart Note Call placed to Monica about arranging an date for her TAVR procedure. V/M left my contact information. documented in this encounter Plan of Treatment Upcoming Encounters Date Type Department Care Team (Late Contact Info) Description 02/24/2024 9:00 AM EDT Office Visit Hematology/Oncology at [address] [phone] Shon Schneider MD [facility] [place] [address] HEMATOLOGY AND ONCOLOGY [place], [place] [address] [phone] 02/24/2024 9:30 AM EDT Infusion Hematology Oncology at [address] [phone] 03/02/2024 11:00 AM EDT Office Visit Hematology/Oncology at [address] [phone] 84 Shon Schneider MD [facility] [place] [place] [address] [address] HEMATOLOGY AND ONCOLOGY [place], [place] [address] 03/02/2024 12:30 PM EDT Infusion Hematology Oncology at [address] [phone] 03/09/2024 10:00 AM EDT Office Visit Hematology/Oncology at [address] [phone] Shon Schneider MD [facility] [place] [place] [address] [address] HEMATOLOGY AND ONCOLOGY [place], [place] [phone] 03/09/2024 10:30 AM EDT Infusion Hematology Oncology at [address] [phone] documented as of this encounter Goals Goal Patient Goal Type Associated Problems Recent Progress Patient-Stated? Author DH Home Medication Compliance and Understanding Patient Facing Action Plan On track( 019 3:22 PM EST) No Ivana Vanegas, [facility] Note: Remain 95% or better adherent to chemotherapy without severe side effects as assessed by days supply and patient reported adverse events at each refill documented as of this encounter Visit Diagnoses Not on filedocumented in this encounter Care Teams Proofer Black And White Relationship Specialty Start Date End Date Jerzy Vidal MD [address] [place] [address] [place] [address] PCP - [facility] Medicine 12/04/18 documented as of this encounter
--- OUTSIDE RECORDS SUMMARY | 2024-02-24 01:15 | XMS_ITS | Encounter Summary ---
Author Organization [facility] [place] [address] Care Team Providers Care Keno Writer/Runner Name Role Phone Jerzy Vidal MD Primary Care Provider [phone] Encounter Details Date Type Department Care Team (Late st Contact Info) Description 12/01/2022 Telephone Hematology Oncology at [address] [phone] Lashawn Skelton, RN Social History Tobacco Use Types Packs/Day [...] encounter Miscellaneous Notes * Telephone Encounter - Lashawn Skelton RN - 12/01/2022 2:54 PM EDT Received critical Lab call from [facility]. Hg 6.2 and Hct 20.2. Notified Dr. Schneider. Monica is feeling well and has not noticed the hg dropping. She would like to go the the Outpatient Treatment Center at [facility] tomorrow vs the ED tonight. Called to schedule 2 units at the OTC at [facility] tomorrow. Faxing up standing transfusion orders: 2 units of PRBC's for Hg less than 7 1 unit of PRBC's for Hg less than 8 Labs entered into [facility]. FUV with Dr. Schneider 12/10. Labs next week 12/08. documented in this encounter Plan of Treatment Upcoming Encounters Date Type Department Care Team (Late st Contact Info) Description 02/24/2024 9:00 AM EDT Office Visit Hematology/Oncology at [address] [phone] Shon Schneider MD [facility] [place] [address] [address] HEMATOLOGY AND ONCOLOGY [place], [place] [address] 02/24/2024 9:30 AM EDT Infusion Hematology Oncology at [address] [phone] 03/02/2024 11:00 AM EDT Office Visit Hematology/Oncology at [address] [phone] Shon Schneider MD [facility] [place] [address] [address] HEMATOLOGY [place] [address] 03/02/2024 12:30 PM EDT Infusion Hematology Oncology at [address] [phone] 03/09/2024 10:00 AM EDT Office Visit Hematology/Oncology at [address] [phone] Shon Schneider MD [facility] [place] [address] Ciara Pitts [address] HEMATOLOGY [place] [address] 03/09/2024 10:30 AM EDT Infusion Hematology Oncology at [address] [phone] documented as of this encounter Goals Goal Patient Goal Type Associated Problems Recent Progress Patient-Stated? Author Home Medication Compliance and Understanding Patient Facing Action Plan On track( 019 3:22 PM EST) Ivana Ashraf, [facility] Note: Remain 95% or better adherent to chemotherapy without severe side effects as assessed by days supply and patient reported adverse events at each refill documented as of this encounter Procedures Procedure Name Priority Date/Time Associated Diagnosis Comments RETICULOCYTE COUNT Routine 12/01/2022 CBC (WITH DIFF) Routine 12/01/2022 COMPREHENSIVE METABOLIC PANEL Routine 12/01/2022 documented in this encounter Results * (ABNORMAL) CBC (with Diff) (12/01/2022) White Blood Cell 3.4 Hemoglobin 6.2(Critic al) Hematocrit 20.2(Criti sabiha) Platelet 131 Neutrophil Absolute (ANC) - Automated 2.7 Blood 12/01/2022 Historical Provider HEMATOLOGY ORDERA BLES * (ABNORMAL) Reticulocyte Count (12/01/2022) Reticulocyte % 2.6 0.5 - 2.4 Blood 12/01/2022 Historical Provider HEMATOLOGY ORDERA BLES * Comprehensive metabolic panel (non-fasting) (12/01/2022) Pathologist [facility] Blood Urea Nitrogen 19 Creatinine 1.11 Blood 12/01/2022 Historical Provider CHEMISTRY ORDERAB LES documented in this encounter Visit Diagnoses Not on filedocumented in this encounter Care Teams Keno Writer/Runner Relationship Specialty Start Date End Date Jerzy Vidal MD [address] [place] [address] [place] [address] PCP - [facility] Medicine 12/04/18 documented as of this encounter
--- OUTSIDE RECORDS SUMMARY | 2024-02-24 01:15 | XMS_ITS | Encounter Summary ---
Author Organization [facility] [place] [address] Care Team Providers Care Reservations Sales Agent Name Role Phone Jerzy Vidal MD Primary Care Provider [phone] Reason for Visit * Reason Onset Date Comments Abnormal Labs 11/17/2022 Critical Encounter Details Date Type Department Care Team (Late st Contact Info) Description 11/17/2022 Telephone Hematology/Oncology at [address] [phone] Boaz Amos RN Abnormal Labs (Critical ) Social History Tobacco Use Types Packs/Day Years [...] Telephone Encounter - Boaz Amos RN - 11/17/2022 1:07 PM EDT [facility] lab called to report Hgb 6.3 on Monica Jaramillo. Her Hct was 20.4, WBC 6.95, Plts 118k. Provider made aware and advised pt report to [facility] ED for blood transfusion. [facility] OTC does not have any room this week for it. Pt called and made aware of our recommendation. She said she would have to get a ride and will try to find one, will call back if she cannot find ride. Called [facility] ED and gave report. documented in this encounter Plan of Treatment Upcoming Encounters Date Type Department Care Team (Late st Contact Info) Description 02/24/2024 9:00 AM EDT Office Visit Hematology/Oncology at [address] [phone] Shon Schneider MD [facility] [place] [address] HEMATOLOGY AND ONCOLOGY [place], [place] [address] 02/24/2024 9:30 AM EDT Infusion Hematology Oncology at [address] [phone] 03/02/2024 11:00 AM EDT Office Visit Hematology/Oncology at [address] [phone] Shon Schneider MD [facility] [place] [place] [address] HEMATOLOGY AND ONCOLOGY [place], [place] [address] 03/02/2024 12:30 PM EDT Infusion Hematology Oncology at [address] [phone] 03/09/2024 10:00 AM EDT Office Visit Hematology/Oncology at [address] [phone] Shon Schneider MD [facility] [place] [address] Ciara Pitts [address] [place] [address] 03/09/2024 10:30 AM EDT Infusion Hematology Oncology at [address] [phone] documented as of this encounter Goals Goal [...] on filedocumented in this encounter Care Teams Reservations Sales Agent Relationship Specialty Start Date End Date Jerzy Vidal MD [address] [place] [address] [place] [address] PCP - [facility] Medicine 12/04/18 documented as of this encounter
--- OUTSIDE RECORDS SUMMARY | 2024-02-24 01:15 | XMS_ITS | Encounter Summary ---
Author Organization [facility] Address [facility] [place] [address] Care Team Providers Care Carpentry Instructor Name Role Phone Jerzy Vidal MD Primary Care Provider [phone] Encounter Details Date Type Department Care Team (Late st Contact Info) Description 12/03/2022 Notes Only Cardiology at [address] [phone] Roddy Sultana MD [facility] [place] [address] Social History Tobacco Use Types Packs/Day Years [...] Progress Notes * Tala Franz RN - 12/03/2022 11:18 AM EDTSummary: Structural Heart Note Spoke to Monica who reiterates interest in scheduling TAVR as discussed during Structural Heart SD evaluation. We reviewed pre/post procedure instructions including holding her Eliquis two days prior to TAVR; She exhibits an understanding. Plan: TAVR TueJan 19 documented in this encounter Plan of Treatment Upcoming Encounters Date Type Department Care Team (Late st Contact Info) Description 02/24/2024 9:00 AM EDT Office Visit Hematology/Oncology at [address] [phone] Shon Schneider MD [facility] [place] [address] [address] HEMATOLOGY AND ONCOLOGY [place], [place] [address] 02/24/2024 9:30 AM EDT Infusion Hematology Oncology at [address] [phone] 03/02/2024 11:00 AM EDT Office Visit Hematology/Oncology at [address] [phone] Shon Schneider MD [facility] [place] [address] [address] HEMATOLOGY AND ONCOLOGY [place], [place] [address] 03/02/2024 12:30 PM EDT Infusion Hematology Oncology at [address] [phone] 03/09/2024 10:00 AM EDT Office Visit Hematology/Oncology at [address] [phone] Shon Schneider MD [facility] [place] [address] Ciara Pitts, [address] [place] [address] 03/09/2024 10:30 AM EDT Infusion Hematology Oncology at [address] [phone] documented as of this encounter Goals Goal Patient Goal Type Associated Problems Recent Progress Patient-Stated? Author DH Home Medication Compliance and Understanding Patient Facing Action Plan On track( 019 3:22 PM EST) Ivana Ashraf, [facility] Note: Remain 95% or better adherent to chemotherapy without severe side effects as assessed by days supply and patient reported adverse events at each refill documented as of this encounter Visit Diagnoses Not on filedocumented in this encounter Care Teams Carpentry Instructor Relationship Specialty Start Date End Date Jerzy Vidal MD [address] [place] [address] [place] [address] PCP - [facility] Medicine 12/04/18 documented as of this encounter
--- OUTSIDE RECORDS SUMMARY | 2024-02-24 01:15 | XMS_ITS | Encounter Summary ---
Author Organization [facility] [place] [address] Care Team Providers Care Journey Lineman Name Role Phone Jerzy Vidal MD Primary Care Provider [phone] Encounter Details Date Type Department Care Team (Late st Contact Info) Description 12/24/2022 Telephone Hematology/Oncology at [address] [phone] Lashawn Skelton, RN Social History [...] Telephone Encounter - Lashawn Skelton RN - 12/24/2022 10:18 AM EDT Monica Jaramillo [id number] 1955 Diagnosis: pancytopenia, thymic carcinoma Labs: CBCw/ diff and retic count weekly ([facility] draw- run at [facility]) Medications: Last chemo: Pemetrexed 10/29/22 Standing transfusion orders at [facility] infusion: 1 unit of PRBCs for hg less than 8 and 2 units of PRBCs for hg less than 7 Assessment/Plan: Labs sent to Dr. Schneider and Dr. Mchugh for review. No transfusions needed today.Will get labs again 12/30, called [facility] to ask that they do them again. Latest Reference Range & Units 12/01/22 00:00 12/09/22 00:00 12/16/22 00:00 12/23/22 00:00 WBC 3.4 (E) 2.5 (E) 3.1 (E) 4.2 (E) Hemoglobin 6.2 !! (E) 7.1 (E) 9.4 (E) 8.5 (E) Hematocrit 20.2 !! (E) 22.7 (E) 29.9 (E) 28.4 (E) Platelets 131 (E) 192 (E) 225 (E) 207 (E) Retic Ct % 0.5 - 2.4 2.6 (E) 3.5 (E) 4.5 (E) 4.3 (E) Neutr Abs (ANC) 2.7 (E) 1.6 (E) 3 (E) !!: Data is critical (E): External lab result documented in this encounter Plan of Treatment Upcoming Encounters Date Type Department Care Team (Late st Contact Info) Description 02/24/2024 9:00 AM EDT Office Visit Hematology/Oncology at [address] [phone] Shon Schneider MD [facility] [place] [address] Ciara Pitts FOAM GUN OPERATOR [address] [place] [address] DR HEMATOLOGY AND ONCOLOGY [place], [place] [id number] 02/24/2024 9:30 AM EDT Infusion Hematology Oncology at [address] [phone] 03/02/2024 11:00 AM EDT Office Visit Hematology/Oncology at [address] [phone] Shon Schneider MD [facility] [place] [address] HEMATOLOGY AND ONCOLOGY [place], [place] [id number] 03/02/2024 12:30 PM EDT Infusion Hematology Oncology at [address] [phone] 03/09/2024 10:00 AM EDT Office Visit Hematology/Oncology at [address] [phone] Shon Schneider MD [facility] [place] [address] HEMATOLOGY AND ONCOLOGY [place], [place] [id number] 03/09/2024 10:30 AM EDT Infusion Hematology Oncology at [address] [phone] documented as of this encounter Goals Goal Patient Goal Type Associated Problems Recent Progress Patient-Stated? Author DH Home Medication Compliance and Understanding Patient Facing Action Plan On track( 019 3:22 PM EST) Ivana Ashraf, [facility] Note: Remain 95% or better adherent to chemotherapy without severe side effects as assessed by days supply and patient reported adverse events at each refill documented as of this encounter Procedures Procedure Name Priority Date/Time Associated Diagnosis Comments RETICULOCYTE COUNT Routine 12/23/2022 CBC (WITH DIFF) Routine 12/23/2022 documented in this encounter Results * Reticulocyte Count (12/23/2022) Reticulocyte % 4.3 Blood 12/23/2022 Historical Provider HEMATOLOGY ORDERA BLES * CBC (with Diff) (12/23/2022) White Blood Cell 4.2 Hemoglobin 8.5 Hematocrit 28.4 Platelet 207 Neutrophil Absolute (ANC) - Automated 3 Blood 12/23/2022 Historical Provider HEMATOLOGY ORDERA BLES documented in this encounter Visit Diagnoses Not on filedocumented in this encounter Care Teams Journey Lineman Relationship Specialty Start Date End Date Jerzy Vidal MD [address] [place] [address] [place] [address] PCP - [facility] Medicine 12/04/18 documented as of this encounter
--- OUTSIDE RECORDS SUMMARY | 2024-02-24 01:15 | XMS_ITS | Encounter Summary ---
Author Organization [facility] [place] [address] Care Team Providers Care Gathering Machine Setter Name Role Phone Jerzy Vidal MD Primary Care Provider [phone] Encounter Details Date Type Department Care Team (Late st Contact Info) Description 11/23/2022 10:40 AM EDT Office [place] [address] Steven Poon MD Aortic valve stenosis, etiology of cardiac valve disease unspecified Social History Tobacco Use Types Packs/Day Years [...] Sign Reading Time Taken Comments Blood Pressure 105/61 11/23/2022 10:37 AM EDT Pulse 73 11/23/2022 10:37 AM EDT Temperature - - Respiratory Rate - - Oxygen Saturation 98% 11/23/2022 10:37 AM EDT Inhaled Oxygen Concentration - - Weight 89.4 kg (197 lb) 11/23/2022 10:37 AM EDT Height 174 cm (5' 8.5) 11/23/2022 10:37 AM EDT Body Mass Index 29.52 11/23/2022 10:37 AM EDT documented in this encounter Progress Notes * Steven Poon MD - 11/23/2022 10:40 AM EDT Cardiothoracic Surgery Consultation Monica Jaramillo is seen at the request of Dr Vidal for the evaluation of . HPI: Monica Jaramillo is a 67 y.o. year old female with increasing alaniz and fatigue, no angina and no syncope. 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 Ventral hernia Past Surgical History: Past Surgical History: Procedure Laterality Date APPENDECTOMY 2003 BREAST BIOPSY SECTION HERNIA REPAIR 2005 IR THORACENTESIS RIGHT 10/28/2022 IR Thoracentesis Right 10/28/2022 John Durand MD [facility] INTERVENTIONL RAD IR THORACENTESIS RIGHT 11/02/2022 IR Thoracentesis Right 11/02/2022 Laxmi Felix PA [facility] INTERVENTIONL RAD SOFT TISSUE BIOPSY 03/22/2017 THORACENTESIS Family History: Family History Problem Relation Age of Onset Colorectal Cancer Mother Social History: Social History Socioeconomic History Marital status: Spouse name: None Number of children: None Years of education: None Highest education level: None Occupational History None Tobacco Use Smoking status: Never Smokeless tobacco: Never Vaping Use Vaping Use: Never used Substance and Sexual Activity Alcohol use: Never Drug use: Never Sexual activity: Never Other Topics Concern None Social History Narrative None Social Determinants of Health Financial Resource Strain: Not on file Food Insecurity: Not on file Transportation Needs: Not on file Physical Activity: Not on file Housing Stability: Not on file Review of Systems: Constitutional - no weakness, fatigue, fevers HEENT - no visual changes; no hearing changes; no recent URI sx Neck - no new pain, limitation of motion Cardiovascular - no angina Pulmonary - yes dyspnea, cough, bronchitis, pneumonias GI - no abdominal pain, constipation, diarrhea - no frequency, nocturia, dysuria Musculoskeletal - no muscle pain, new limitation of motion Extremities - no edema Neuro - no confusion, weakness, syncope, paresthesias Hematologic - no bruising, excessive bleeding Allergies: Allergies Allergen Reactions Kiwi (Actinidia Chinensis) Itching and Other (See Comments) Mouth swelling Carboplatin Penicillins Hives Pollen Extracts Other (See Comments) rhinorrhea Meds: Outpatient Medications Marked as Taking for the 11/23/22 encounter (Office Visit) with Steven Poon MD Medication Sig Dispense Refill lidocaine (Lidoderm) 5% Adhesive Patch, Medicated Apply 1 patch onto the skin daily. (leave on for 12 hours and remove for 12 hours) 30 patch 3 dilTIAZem CD (Cardizem CD) 180 mg CD (ER) 24 hr casule Take 1 capsule by mouth daily. 45 capsule 3 furosemide (Lasix) 80 mg tablet Take 1 tablet by mouth daily. 60 tablet 3 triamcinolone (Kenalog) 0.1 % Cream Apply topically 2 times daily. 30 g 0 aMILoride (Midamor) 5 mg tablet TAKE ONE [...] by mouth every morning. 90 tablet 3 potassium chloride ER (K-Dur/Klor-Con) 20 mEq Tab Sust.Rel. Particle/Crystal Take 1 tablet by mouthdaily. 30 tablet 5 ondansetron (Zofran) 8 mg Tablet Take 1 tablet by mouth every 8 hours as needed for Nausea. 20 tablet 3 acetaminophen (TYLENOL) 500 mg Tablet Take 1,000 mg by mouth every 6 hours as needed for Pain. ascorbic acid, vitamin C, (VITAMIN C) 500 mg Tablet, Chewable Take 1 tablet by mouth daily. apixaban (Eliquis) 5 mg Tablet Take 5 mg by mouth 2 times daily. multivitamin (THERAGRAN) Tablet Take 1 tablet by mouth daily. Physical Exam: No data found. 89.4 kg (197 lb) Constitutional:Well appearing in no acute distress. Skin: Warm, well perfused. HEENT: within normal limits. NC/AT EOMI Neck: supple, no JVD, no bruit. Heart: regular rate and rhythm, without murmurs. Lungs: clear bilaterally. Abdomen: soft, nontender, active bowel sounds, no masses noted. Extremities: full range of motion; no clubbing, cyanosis, or edema. Neuro exam: Alert and oriented x 3. Strength grossly normal. Diagnositcs: No results for input(s): WBC, NA, K, CL, CO2, GLUCOSE in the last 72 hours. Invalid input(s): HBG, HCT, PLATELETS, , BUN, CREATININE, TROP CATH: pending ECHO: severe , please see emr for detailed report Assessment and Plan: Monica Jaramillo is a 67 yo female with symptomatic who has significant comorbities that make herhigh risk for surgery. TAVR would be a more reasonable first approach. We had a long discussion regarding the risks and benefits of surgery vs tavr. The risks include butare not limited to stroke, damage to any organ (heart, lung, liver, kidneys, brain, etc.), infection, need for blood transfusion with the concomitant risks of AIDS and hepatitis, renal failure resulting in dialysis, prolonged respiratory failure requiring mechanical ventilation, graft failure, and the possibility of . She seems to understand and wishes to proceed. We plan TAVR. documented in this encounter Plan of Treatment Upcoming Encounters Date Type Department Care Team (Late st Contact Info) Description 02/24/2024 9:00 AM EDT Office Visit Hematology/Oncology at [address] [phone] Shon Schneider MD [facility] [place] [address] Ciara Pitts APRN [address] [place] [address] DR HEMATOLOGY AND ONCOLOGY [place], [place] [id number] 02/24/2024 9:30 AM EDT Infusion Hematology Oncology at [address] [phone] 03/02/2024 11:00 AM EDT Office Visit Hematology/Oncology at [address] [phone] Shon Schneider MD [facility] [place] [address] [address] HEMATOLOGY AND ONCOLOGY [place], [place] [address] 03/02/2024 12:30 PM EDT Infusion Hematology Oncology at [address] [phone] 03/09/2024 10:00 AM EDT Office Visit Hematology/Oncology at [address] [phone] Shon Schneider MD [facility] [place] [address] HEMATOLOGY AND ONCOLOGY [place], [place] [address] 03/09/2024 10:30 AM EDT Infusion Hematology Oncology at [address] [phone] documented as of this encounter Goals Goal Patient Goal Type Associated Problems Recent Progress Patient-Stated? Author DH Home Medication Compliance and Understanding Patient Facing Action Plan On track( 019 3:22 PM EST) Ivana Ashraf, [facility] Note: Remain 95% or better adherent to chemotherapy without severe side effects as assessed by days supply and patient reported adverse events at each refill documented as of this encounter Visit Diagnoses Diagnosis Aortic valve stenosis, etiology of cardiac valve disease unspecified Thymic carcinoma Malignant neoplasm of thymus documented in this encounter Care Teams Gathering Machine Setter Relationship Specialty Start Date End Date Jerzy Vidal MD [address] [place] [address] [place] [address] PCP - [facility] Medicine 12/04/18 documented as of this encounter
--- OUTSIDE RECORDS SUMMARY | 2024-02-24 01:15 | XMS_ITS | Encounter Summary ---
Author Organization [facility] Address [facility] [place] [address] Care Team Providers Care Landscape Crew Leader Name Role Phone Jerzy Vidal MD Primary Care Provider [phone] Encounter Details Date Type Department Care Team (Late Contact Info) Description 12/01/2022 Notes Only Cardiology at [address] [phone] Roddy Sultana MD [facility] [place] [address] Social History Tobacco Use Types Packs/Day Years [...] Progress Notes * Tala Franz RN - 12/01/2022 12:17 PM EDTSummary: Structural Heart Note V/M left for Monica calling about setting up her TAVR procedure date. I left my contact information for return call. This is my second attempt to contact her. documented in this encounter Plan of Treatment Upcoming Encounters Date Type Department Care Team (Late Contact Info) Description 02/24/2024 9:00 AM EDT Office Visit Hematology/Oncology at [address] [phone] Shon Schneider MD [facility] [place] [address] [address] HEMATOLOGY AND ONCOLOGY [place], [place] [address] [phone] 02/24/2024 9:30 AM EDT Infusion Hematology Oncology at [address] [phone] 03/02/2024 11:00 AM EDT Office Visit Hematology/Oncology at [address] [phone] Shon Schneider MD [facility] [place] [address] HEMATOLOGY AND ONCOLOGY [place], [place] [address] 03/02/2024 12:30 PM EDT Infusion Hematology Oncology at [address] [phone] 03/09/2024 10:00 AM EDT Office Visit Hematology/Oncology at [address] [phone] Shon Schneider MD [facility] [place] [place] [address] [address] HEMATOLOGY AND ONCOLOGY [place], [place] [address] 03/09/2024 10:30 AM EDT Infusion Hematology Oncology at [address] [phone] documented as of this encounter Goals Goal [...] on filedocumented in this encounter Care Teams Landscape Crew Leader Relationship Specialty Start Date End Date Jerzy Vidal MD [address] [place] [address] [place] [address] PCP - [facility] Medicine 12/04/18 documented as of this encounter
--- OUTSIDE RECORDS SUMMARY | 2024-02-24 01:15 | XMS_ITS | Encounter Summary ---
Author Organization [facility] Address [facility] [place] [address] Care Team Providers Care Voltage Inspector Name Role Phone Jerzy Vidal MD Primary Care Provider [phone] Encounter Details Date Type Department Care Team (Latest Contact Info) Description 11/19/2022 Travel Social History Tobacco Use Types Packs/Day [...] AM EDT Office Visit Hematology/Oncology at [address] [phone] Shon Schneider MD [facility] [place] [address] Ciara Pitts APRN [address] [place] [address] DR HEMATOLOGY AND ONCOLOGY [place], [place] [id number] 02/24/2024 9:30 AM EDT Infusion Hematology Oncology at [address] [phone] 03/02/2024 11:00 AM EDT Office Visit Hematology/Oncology at [address] [phone] Shon Schneider MD [facility] [place] [place] [address] [address] HEMATOLOGY AND ONCOLOGY [place], [place] [address] 03/02/2024 12:30 PM EDT Infusion Hematology Oncology at [address] [phone] 03/09/2024 10:00 AM EDT Office Visit Hematology/Oncology at [address] [place] [phone] Shon Schneider MD [facility] [place] [address] [address] HEMATOLOGY AND ONCOLOGY [place], [place] [address] 03/09/2024 10:30 AM EDT Infusion Hematology Oncology at [address] [phone] documented as of this encounter Goals Goal [...] on filedocumented in this encounter Care Teams Voltage Inspector Relationship Specialty Start Date End Date Jerzy Vidal MD [address] [place] [address] [place] [address] PCP - [facility] Medicine 12/04/18 documented as of this encounter
--- OUTSIDE RECORDS SUMMARY | 2024-02-24 01:15 | XMS_ITS | Encounter Summary ---
Author Organization [facility] Address [facility] [place] [address] Care Team Providers Care Solutions Sales Executive Name Role Phone Jerzy Vidal MD Primary Care Provider [phone] Reason for Referral * Diagnostic Test (Routine) - Closed Specialty Diagnoses / Procedures Referred By Franklyn del rio Referred To Contact Cardiology Diagnoses Severe aortic stenosis Procedures Echocardiogram Transthoracic Transesophageal Echocardiogram (DIA) Edvin Sultana MD [facility] [place] [address] [facility] [place] [address] Referral ID Status Reason Start Date Expiration Date V isits Requested Visits Authorized [id number] Closed Specialty Service Requested 12/04/2022 12/04/2023 1 1 Encounter Details Date Type Department Care Team (Late st Contact Info) Description 12/03/2022 Orders Only Cardiology at [address] [phone] Edvin Sultana MD [facility] [place] [address] Severe aortic stenosis Social History Tobacco Use Types Packs/Day Years [...] 9:00 AM EDT Office Visit Hematology/Oncology at [address] [phone] Shon Schneider MD [facility] [place] [address] HEMATOLOGY AND ONCOLOGY [place], [place] [address] 02/24/2024 9:30 AM EDT Infusion Hematology Oncology at [address] [phone] 03/02/2024 11:00 AM EDT Office Visit Hematology/Oncology at [address] [phone] Shon Schneider MD [facility] [place] [address] HEMATOLOGY AND ONCOLOGY [place], [place] [address] 03/02/2024 12:30 PM EDT Infusion Hematology Oncology at [address] [phone] 03/09/2024 10:00 AM EDT Office Visit Hematology/Oncology at [address] [phone] Shon Schneider MD [facility] [place] [address] [address] HEMATOLOGY AND ONCOLOGY [place], [place] [phone] 03/09/2024 10:30 AM EDT Infusion Hematology Oncology at [address] [phone] documented as of this encounter Goals Goal Patient Goal Type Associated Problems Recent Progress Patient-Stated? Author DH Home Medication Compliance and Understanding Patient Facing Action Plan On track( 019 3:22 PM EST) No Ivana Vanegas, [facility] Note: Remain 95% or better adherent to chemotherapy without severe side effects as assessed by days supply and patient reported adverse events at each refill documented as of this encounter Results * ECHO LMTD W/O CONTRAST W LMTD SPEC DOPP COLOR DOPP (01/19/2023 2:36 PM EDT) Anatomical Region Laterality Modality Cardiac Other 01/19/2023 11:3 7 AM EDT Narrative 01/19/2023 2:47 PM EDT ? Echocardiogram Report Name: MONICA PIERRE ?Study Date: 01/19/2023 11:37 AMBP: 112/62 mmHg ? Patient Location: CA^CA06^A : 1955 ? Height: 175 cm ? Account: [id number] Age: 67 yrs ? Weight: 91 kg Gender: Female ?BSA: 2.1 m2 Ordering Physician: EDVIN SULTANA Referring Physician: EDVIN SULTANA Performed By: Rolando Taylor RDCS Reason For Study: Guidance for TAVR procedure Exam Location: [facility]. Interpretation Summary Study performed for guidance of TAVR. PRE: Severe aortic stenoiss. LVEF 65%. Trivial posterior pericardial effusion. POST: Tino valve in the aortic position. Well seated with normal function, no regurgitation. Unchnaged LVEF. Unchanged pericardial effusion. RVSP 66 mmHg with normal RV function, mild to moderate tricuspid regurgitation. See report for additional findings. Procedure Limited - 74461. Doppler - 23008. Color Doppler - 02205. Left Ventricle Left ventricle is of normal [...] MD - 01/19/2023 Echocardiogram Report Name: MONICA PIERRE Study Date: 1:37 AMBP: 112/62 mmHg Patient Location:RI^CA06^A : 1955 Height: 175 cm Account: [id number] Age: 67 yrs Weight: 91 kg Gender: Female BSA: 2.1 m2 Ordering Physician: EDVIN SULTANA Referring Physician: EDVIN SULTANA Performed By: Rolando Taylor RDCS Reason For Study: Guidance for TAVR procedure Exam Location: [facility]. Interpretation Summary Study performed for guidance of TAVR. PRE: Severe aortic stenoiss. LVEF 65%. Trivial posterior pericardialeffusion. POST: Tino valve in the aortic position. Well seated with normalfunction, no regurgitation. Unchnaged LVEF. Unchanged pericardial effusion. RVSP 66mmHg with normal RV function, mild to moderate tricuspid regurgitation. See report for additional findings. Procedure Limited - 37800. Doppler - 87575. Color Doppler - 95095. Left Ventricle Left ventricle is of normal [...] 15-16diffuse Edvin Sultana MD ECHO ORDERABLES * Basic Metabolic Panel (non-fasting) (01/19/2023 10:24 AM EDT) Glucose 94 65 - 199 mg/dL [facility] Comment:Diabetes: >=200 mg/d L plus symptoms Blood Urea Nitrogen 16 8 - 18 mg/dL [facility] Creatinine 0.92 0.70 - 1.20 mg/dL [facility] Sodium 137 135 - 145 mmol/L [facility] Potassium 4.5 3.5 - 5.0 mmol/L [facility] Comment: Please note: ??Patients with WBC >100,000 may have falsely elevated Potassium levels. ??For accurate Potassium quantification in these patients send serum separator tube (gold top) for subsequent determinations. ??Contact the Clinical Chemistry Laboratory if there are any questions. Chloride 101 98 - 107 mmol/L [facility] Carbon Dioxide 28 22 - 31 mmol/L [facility] Anion Gap 8 5 - 15 mmol/L [facility] Calcium 9.9 8.5 - 10.5 mg/dL [facility] Est Glomerular Filtration Rate 69 >=60 mL/min/1. 73 m?? [facility] Comment: This patient's estimated GFR was [...] In Lab Edvin Sultana MD CHEMISTRY ORDERABLES [facility] [place] [address] documented in this encounter Visit Diagnoses Diagnosis Severe aortic stenosis Aortic valve disorders Thymic carcinoma Malignant neoplasm of thymus documented in this encounter Care Teams Solutions Sales Executive Relationship Specialty Start Date End Date Jerzy Vidal MD [address] [place] [address] [place] [address] PCP - [facility] Medicine 12/04/18 documented as of this encounter
--- OUTSIDE RECORDS SUMMARY | 2024-02-24 01:15 | XMS_ITS | Encounter Summary ---
Author Organization [facility] Address [facility] [place] [address] Care Team Providers Care Road Inspector Name Role Phone Jerzy Vidal MD Primary Care Provider [phone] Reason for Visit * Reason Onset Date Comments Follow-up 11/30/2022 Three week post discharge follow up call Encounter Details Date Type Department Care Team (Late st Contact Info) Description 11/30/2022 [place] [address] Mark Roberson MA Follow-up (Three week post discharge follow up call) Social History [...] Telephone Encounter - Mark Roberson MA - 11/30/2022 9:46 AM EDT Post-Discharge Heart Failure Phone Note Interview status: Complete- last name and verified If patient not reached, delete the rest of message. Date of hospital discharge: 11/07/22 LOS: 16 Days First home scale weight has not been [...] she is aware of all upcoming appointments. On my phone call today 11/17/22, patient states she feels great. She is checking her weights, today she is 194.1 lbs and she has had to increase her Furosemide to 160 mg qd for the past 4 days for greater than 2 lb weight gain. She does not report any increasing edema or shortness of breath. I spoke with Dr. Vidal's nurse Matilde today and notified of above. They will call patient and try to move up scheduled hospital check appointment before 11/29/22. On my phone call today 11/30/2022, patient states she continues to feel better since discharge. Her weight is 195.4 lbs and she is currently taking Furosemide 160 mg. She was seen by Cardiology last week 11/23/[address] Schneider, her Hematology provider is aware that she is taking the higher dose of Furosemide. Symptoms: Ask the patient: How are you [...] spoken with a provider about your symptoms? Yes 11/19/2022 Hematology/Oncology Dr. Schneider 11/23/[address] Poon and Juan Miguel Castorena APRN Did they make any changes in your diuretics? No Read original heart failure instructions: If [...] qd until back to goal weight. Weights: 11/07/22 90.1 kg (198 lb 10.2 oz) Weight at discharge: Wt Readings from Last 1 Encounters: 11/23/22 89.4 kg (197 lb) Do you have access to a scale? Yes Do you know when and how to weigh yourself? Yes Have you been weighing and do you have a place you can record your weights? Yes First home weight (lb)? 190.2 lbs 11/11/2022 Current weight (lb)? 195.4 lbs Do you have (name of diuretic) accessible to you? Yes Are you taking it according to these instructions? Yes- taking Lasix 160 qd, she states she has been taking this dose on and off due to weight. Do you have contact information for your PCP or Optomechanical Technician or Home Health Agency? Yes Please say yes or no to indicate [...] 9:00 AM EDT Office Visit Hematology/Oncology at [address] [phone] Shon Schneider MD [facility] [place] [address] Ciara Pitts APRN [address] [place] [address] DR HEMATOLOGY AND ONCOLOGY [place], [place] [phone] 02/24/2024 9:30 AM EDT Infusion Hematology Oncology at [address] [phone] 03/02/2024 11:00 AM EDT Office Visit Hematology/Oncology at [address] [phone] Shon Schneider MD [facility] [place] [address] HEMATOLOGY AND ONCOLOGY [place], [place] [phone] 03/02/2024 12:30 PM EDT Infusion Hematology Oncology at [address] [phone] 03/09/2024 10:00 AM EDT Office Visit Hematology/Oncology at [address] [phone] Shon Schneider MD [facility] [place] [address] [address] HEMATOLOGY AND ONCOLOGY [place], [place] [phone] 03/09/2024 10:30 AM EDT Infusion Hematology Oncology at [address] [phone] documented as of this encounter Goals Goal [...] on filedocumented in this encounter Care Teams Road Inspector Relationship Specialty Start Date End Date Jerzy Vidal MD [address] [place] [address] [place] [address] PCP - [facility] Medicine 12/04/18 documented as of this encounter
--- OUTSIDE RECORDS SUMMARY | 2024-02-24 01:15 | XMS_ITS | Encounter Summary ---
Author Organization [facility] [place] [address] Care Team Providers Care Lunchroom Worker Name Role Phone Jerzy Vidal MD Primary Care Provider [phone] Reason for Visit * Reason Onset Date Comments Labs Only 12/30/2022 Lab tracking Encounter Details Date Type Department Care Team (Late st Contact Info) Description 12/30/2022 Telephone Hematology/Oncology at [address] [phone] Brionna Andrade RN Labs Only (Lab tracking) Social History Tobacco Use Types Packs/Day Years [...] encounter Miscellaneous Notes * Telephone Encounter - Brionna Andrade RN - 12/30/2022 1:55 PM EDT Monica Jaramillo [id number] 1955 Diagnosis: pancytopenia, thymic carcinoma Labs: CBCw/ diff and retic count weekly ([facility] draw- run at [facility]) [phone] Medications: Last chemo: Pemetrexed 10/29/22 Standing transfusion orders at [facility] infusion: 1 unit of PRBCs for hg less than 8 and 2 units of PRBCs for hg less than 7 Assessment/Plan: Labs sent to Dr. Schneider and Dr. Mchugh for review. No transfusions needed today.Labs again in 2 weeks Jan.13. Left message at [employer] to do this. 12/09/22 00:00 12/16/22 00:00 12/23/22 00:00 12/30/22 00:00 WBC 2.5 (E) 3.1 (E) 4.2 (E) 3.8 (E) Hemoglobin 7.1 (E) 9.4 (E) 8.5 (E) 8.6 (E) Hematocrit 22.7 (E) 29.9 (E) 28.4 (E) 27.8 (E) Platelets 192 (E) 225 (E) 207 (E) 186 (E) Retic Ct % 3.5 (E) 4.5 (E) 4.3 (E) 4.6 (E) (E): External lab result documented in this encounter Plan of Treatment Upcoming Encounters Date Type Department Care Team (Late st Contact Info) Description 02/24/2024 9:00 AM EDT Office Visit Hematology/Oncology at [address] [phone] Shno Schneider MD [facility] [place] [address] Ciara Pitts APRN [address] [place] [address] DR [place] [address] 02/24/2024 9:30 AM EDT Infusion Hematology Oncology at [address] [phone] 03/02/2024 11:00 AM EDT Office Visit Hematology/Oncology at [address] [phone] Shon Schneider MD [facility] [place] [address] Ciara Pitts APRN [address] HEMATOLOGY AND ONCOLOGY [place], [place] [phone] 03/02/2024 12:30 PM EDT Infusion Hematology Oncology at [address] [phone] 03/09/2024 10:00 AM EDT Office Visit Hematology/Oncology at [address] [phone] Shon Schneider MD [facility] [address] HEMATOLOGY AND ONCOLOGY [place], [place] [phone] 03/09/2024 10:30 AM EDT Infusion Hematology Oncology at [address] [phone] documented as of this encounter Goals Goal [...] Procedure Name Priority Date/Time Associated Diagnosis Comments CBC (WITH DIFF) Routine 12/30/2022 documented in this encounter Results * CBC (with Diff) (12/30/2022) White Blood Cell 3.8 Hemoglobin 8.6 Hematocrit 27.8 Platelet 186 Reticulocyte % 4.6 Blood 12/30/2022 Historical Provider HEMATOLOGY ORDERA BLES documented in this encounter Visit Diagnoses Not on filedocumented in this encounter Care Teams Lunchroom Worker Relationship Specialty Start Date End Date Jerzy Vidal MD [address] [place] [address] [place] [address] PCP - [facility] Medicine 12/04/18 documented as of this encounter
--- OUTSIDE RECORDS SUMMARY | 2024-02-24 01:15 | XMS_ITS | Encounter Summary ---
Author Organization [facility] Address [facility] [place] [address] Care Team Providers Care Quality Assurance Calibrator Name Role Phone Jerzy Vidal MD Primary Care Provider [phone] Encounter Details Date Type Department Care Team (Latest Contact Info) Description 11/23/2022 11:00 AM EDT - 11/23/2022 11:59 PM EDT Hospital Encounter [place]ematology [place] [phone] Normocytic anemia; Other feeding difficulties; Thymic carcinoma Discharge Disposition: Home Social History Tobacco Use [...] mouth daily. lidocaine (Lidoderm) 5% Adhesive Patch, MedicatedIndications:A cute bilateral knee pain Apply 1 patch onto the skin daily. (leave on for 12 hours and remove for 12 hours) 30 patch 3 11/19/2022 06/24/2023 furosemide (Lasix) 80 mg tablet Take 1 tablet by mouth daily. 60 tablet 3 11/07/2022 01/20/2023 triamcinolone (Kenalog) 0.1 % Cream Apply topically [...] as of this encounter Progress Notes * Bettina Goode RN - 11/23/2022 12:03 PM EDT Patient Name: Monica Jaramillo Patient Age: 67 y.o. Birthdate: 1955 Admit date: 11/23/2022 Attending Physician: No att. providers found Access visit. See MAR and/or flowsheet. documented in this encounter Plan of Treatment Upcoming Encounters Date Type Department Care Team (Late st Contact Info) Description 02/24/2024 9:00 AM EDT Office Visit Hematology/Oncology at [address] [phone] Shon Schneider MD [facility] [place] [address] HEMATOLOGY AND ONCOLOGY [place], [place] [address] 02/24/2024 9:30 AM EDT Infusion Hematology Oncology at [address] [phone] 03/02/2024 11:00 AM EDT Office Visit Hematology/Oncology at [address] [phone] Shon Schneider MD [facility] [place] [address] Ciara Pitts, [address] HEMATOLOGY AND ONCOLOGY [place], [place] [address] 03/02/2024 12:30 PM EDT Infusion Hematology Oncology at [address] [phone] 03/09/2024 10:00 AM EDT Office Visit Hematology/Oncology at [address] [phone] Shon Schneider MD [facility] [place] [address] Ciara Pitts [address] [place] [address] 03/09/2024 10:30 AM EDT Infusion Hematology Oncology at [address] [phone] documented as of this encounter Goals Goal [...] Priority Date/Time Associated Diagnosis Comments HEMOGRAM Routine 11/23/2022 12:01 PM EDT Normocytic anemia DIFFERENTIAL, AUTOMATED Routine 11/23/2022 12:01 PM EDT Normocytic anemia IRON AND TIBC Routine 11/23/2022 12:01 PM EDT Normocytic anemia COPPER, SERUM Routine 11/23/2022 12:01 PM EDT Normocytic anemia Other feeding difficulties HC RETIC,AUTO INCLUDES RETHE & IRF Routine 11/23/2022 12:01 PM EDT Normocytic anemia CBC (WITH DIFF) Routine 11/23/2022 12:01 PM EDT Normocytic anemia HC LACTIC DEHYDROGENASE Routine 11/23/2022 12:01 PM EDT Normocytic anemia HAPTOGLOBIN Routine 11/23/2022 12:01 PM EDT Normocytic anemia FOLATE, SERUM Routine 11/23/2022 12:01 PM EDT Normocytic anemia FERRITIN Routine 11/23/2022 12:01 PM EDT Normocytic anemia VITAMIN B12 Routine 11/23/2022 12:01 PM EDT Normocytic anemia COMPREHENSIVE METABOLIC PANEL Routine 11/23/2022 12:01 PM EDT Normocytic anemia documented in this encounter Results * (ABNORMAL) Differential, Automated (11/23/2022 12:01 PM EDT) Neutrophil % 77.0 % [facility] Neutrophil Absolute 3.91 1.70 - 6.10 x10(3)/mc L [facility] Lymph % 10.2 % [facility] Lymphocytes Abs 0.5(L) 0.9 - 3.2 x10(3)/mc L [facility] Monocyte % 7.9 % [facility] Monocyte Abs 0.4 0.3 - 0.9 x10(3)/mc L [facility] Eos % 3.9 % [facility] Eosinophils Abs 0.2 0.0 - 0.4 x10(3)/mc L [facility] Basophil % 0.6 % [facility] Baso Absolute 0.0 0.0 - 0.1 x10(3)/mc L [facility] Immature Gran % 0.40 % [facility] Comment: Immature granulocytes(IG's)percentage and absolute count will include metamyelocytes, myelocytes, and promyelocytes. Blood smears from CBCs yielding IG's will be scanned manually for concordance. If this scan disagrees with the automated IG or if promyelocytes are noted, a manual differential will be performed. Immature Gran Absolute 0.02 0.00 - 0.04 x10(3)/mc L [facility] Blood 11/23/2022 12:0 1 PM EDT 11/23/2022 12:14 PM EDT Narrative Resulting Agency Comment Spec In Lab Salvatore Mchugh MD HEMATOLOGY ORDERAB LES [facility] [place] [place] [address] * (ABNORMAL) Hemogram (11/23/2022 12:01 PM EDT) White Blood Cell 5.1 4.0 - 9.5 x10(3)/mc L [facility] Red Blood Cell 2.15(L) 4.00 - 5.21 x10(6)/mc L [facility] Hemoglobin 7.0(L) 11.7 - 15.5 g/dL [facility] Hematocrit 21.5(L) 35.7 - 45.8 % [facility] Mean Cell Volume 100.0(H) 82.6 - 94.4 fL [facility] Mean Cell Hemoglobin 32.6(H) 27.1 - 32.0 pg [facility] Mean Cell Hemoglobin Concentration 32.6 31.7 - 35.0 g/dL [facility] Platelet 81(L) 145 - 357 x10(3)/mc L [facility] RDW Standard Deviation 70.4(H) 37.0 - 46.0 fL [facility] RDW coefficient of variation 20.1(H) 11.5 - 14.1 % [facility] Mean Platelet Volume 10.5 7.6 - 12.9 fL [facility] NRBC% auto 0.0 % [facility] NRBC Absolute 0.000 0.000 - 0.000 x10(3)/ L [facility] Blood 11/23/2022 12:0 1 PM EDT 11/23/2022 12:14 PM EDT Narrative Resulting Agency Comment Spec In Lab Salvatore Mchugh MD HEMATOLOGY ORDERAB LES Performing Organization Address City/State/[facility] Co de Phone Number [facility] [address] * (ABNORMAL) Comprehensive metabolic panel (non-fasting) (11/23/2022 12:01 PM EDT) Glucose 94 65 - 199 mg/dL [facility] Comment:Diabetes: >=200 mg/d L plus symptoms Blood Urea Nitrogen 19(H) 8 - 18 mg/dL [facility] Creatinine 0.86 0.70 - 1.20 mg/dL [facility] Sodium 136 135 - 145 mmol/L [facility] Potassium 3.1(L) 3.5 - 5.0 mmol/L [facility] Comment: Please note: ??Patients with WBC >100,000 may have falsely elevated Potassium levels. ??For accurate Potassium quantification in these patients send serum separator tube (gold top) for subsequent determinations. ??Contact the Clinical Chemistry Laboratory if there are any questions. Chloride 95(L) 98 - 107 mmol/L [facility] Carbon Dioxide 33(H) 22 - 31 mmol/L [facility] Anion Gap 8 5 - 15 mmol/L [facility] Calcium 9.3 8.5 - 10.5 mg/dL [facility] Protein, Total 7.5 6.1 - 8.0 g/dL [facility] Albumin 3.0(L) 3.2 - 5.2 g/dL [facility] Aspartate Aminotransferase 15 0 - 30 unit/L [facility] Alanine Aminotransferase 6 0 - 30 unit/L [facility] Alkaline Phosphatase 55 35 - 105 unit/L [facility] Bilirubin, Total 1.1 0.2 - 1.3 mg/dL [facility] Est Glomerular Filtration Rate 75 >=60 mL/min/1. 73 m?? [facility] Comment: This patient's estimated GFR was [...] Lab Salvatore Mchugh MD CHEMISTRY ORDERABL ES [facility] [place] [address] * Copper, serum (11/23/2022 12:01 PM EDT) Copper (OCTOBER) 149 77 - 206 mcg/dL [facility] Comment: ADDITIONAL INFORMATION This test was developed and its performance characteristics determined by [facility] in a manner consistent with CLIA requirements. This test has not been cleared or approved by the U.S. Food and Drug Administration. Test Performed by: [facility] [address] [place] [address] Paver Operator: Alex Cameron M.D. Ph.D.; CLIA# [id number] Blood 11/23/2022 12:0 1 PM EDT 11/23/2022 2:21 PM EDT Narrative Resulting Agency Comment Spec In Lab Salvatore Mchugh MD LAB SEND OUT ORDER DOM Performing Organization Address City/[facility] Co de Phone Number [facility] [place] [address] * (ABNORMAL) Ferritin (11/23/2022 12:01 PM EDT) Pathologist [facility] Ferritin 4,166(H) 30 - 400 ng/mL [facility] Comment: Pediatric reference ranges not verified at [facility] interpret with caution. Reference ranges for females greater than 50 years of age approach values for men, i.e., 30-400 ng/mL. Blood 11/23/2022 12:0 1 PM EDT 11/23/2022 12:14 PM EDT Narrative Resulting Agency Comment Spec In Lab Salvatore Mchugh MD CHEMISTRY ORDERABL ES Performing Organization Address City/[facility] Co de Phone Number [facility] [place] [address] * Folate, serum (11/23/2022 12:01 PM EDT) Pathologist [facility] Folate 11.0 4.8 - 24.2 ng/mL [facility] Blood 11/23/2022 12:0 1 PM EDT 11/23/2022 12:14 PM EDT Narrative Resulting Agency Comment Spec In Lab Salvatore Mchugh MD CHEMISTRY ORDERABL ES Performing Organization Address [facility] Co de Phone Number [facility] [place] [address] * (ABNORMAL) Haptoglobin (11/23/2022 12:01 PM EDT) Haptoglobin 250(H) 30 - 200 mg/dL [facility] Comment: rerunning Haptoglobin concentrations in newborns is low to undetectable; however, adult concentrations are usually attained by 4 months of age. ??No sex-related differences for haptoglobin have been detected. Blood 11/23/2022 12:0 1 PM EDT 11/23/2022 12:14 PM EDT Narrative Resulting Agency Comment Spec In Lab Salvatore Mchugh MD CHEMISTRY ORDERABL ES Performing Organization Address [facility] Co de Phone Number [facility] [place] [address] * (ABNORMAL) Iron and TIBC (11/23/2022 12:01 PM EDT) Iron 40 30 - 150 mcg/dL [facility] TIBC 123(L) 250 - 450 mcg/dL [facility] Iron Saturation 33 20 - 50 % [facility] Blood 11/23/2022 12:0 1 PM EDT 11/23/2022 12:14 PM EDT Narrative Resulting Agency Comment Spec In Lab Salvatore Mchugh MD CHEMISTRY ORDERABL ES Performing Organization Address [facility] Co de Phone Number [facility] [place] [address] * Lactate Dehydrogenase (11/23/2022 12:01 PM EDT) Lactate Dehydrogenase 202 110 - 220 unit/L [facility] Blood 11/23/2022 12:0 1 PM EDT 11/23/2022 12:14 PM EDT Narrative Resulting Agency Comment Spec In Lab Salvatore Mchugh MD CHEMISTRY ORDERABL ES Performing Organization Address [facility]/ZIP Co de Phone Number [facility] [place] [address] * (ABNORMAL) Reticulocyte Count (11/23/2022 12:01 PM EDT) Reticulocyte % 2.2 0.7 - 2.5 % [facility] Retic Abs # 0.050 0.020 - 0.110 x10(6)/mcL [facility] Immature Retic% 17.2(H) 0.5 - 13.8 % [facility] Reticulated Hgb 33.9 29.8 - 39.4 pg [facility] Blood 11/23/2022 12:0 1 PM EDT 11/23/2022 12:14 PM EDT Narrative Resulting Agency Comment Spec In Lab Salvatore Mchugh MD HEMATOLOGY ORDERAB LES Performing Organization Address [facility] Co de Phone Number [facility] [address] * Vitamin B12 (11/23/2022 12:01 PM EDT) Vitamin B12 397 232 - 1,245 pg/mL [facility] Blood 11/23/2022 12:0 1 PM EDT 11/23/2022 12:14 PM EDT Narrative Resulting Agency Comment Spec In Lab Salvatore Mchugh MD CHEMISTRY ORDERABL ES Performing Organization Address [facility] Co de Phone Number [facility] [address] documented in this encounter Visit Diagnoses Diagnosis Normocytic anemia Anemia, unspecified Other feeding difficulties 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 documented in this encounter Administered Medications Inactive Administered Medications - up to 3 most recent administrations Medication Order MAR Action Action Date Dose Rate Site heparin (pf) (porcine) (100 units/mL) flush 5 mL syringe 500 Units 500 Units, Intravenous, ONCE, 1 dose, On Tue11/23/22 at 1215, Routine Given 11/23/2022 12:03 PM EDT 500 Units sodium chloride 0.9 % (flush) (BD PosiFlush Normal Saline 0.9) flush 20 mL 20 mL, Intravenous, EVERY 1 MIN PRN, Starting on Tue11/23/22 at 1145, Until Tue11/24/22 at 0434, Replenishment Specialist, Routine Given 11/23/2022 12:02 PM EDT 20 mLs documented in this encounter Care Teams Quality Assurance Calibrator Relationship Specialty Start Date End Date Jerzy Vidal MD [address] [place] [address] [place] [address] PCP - [facility] Medicine 12/04/18 documented as of this encounter
--- OUTSIDE RECORDS SUMMARY | 2024-02-24 01:15 | XMS_ITS | Encounter Summary ---
Author Organization [facility] Address [facility] [place] [address] Care Team Providers Care Hot Car Operator Name Role Phone Jerzy Vidal MD Primary Care Provider [phone] Encounter Details Date Type Department Care Team (Late st Contact Info) Description 01/07/2023 2:30 PM EDT Office Visit Hematology/Oncology at [address] [phone] Shon Schneider MD [facility] [place] [address] Ciara Pitts APRN [address] [place] [address] DR HEMATOLOGY AND ONCOLOGY [place], [place] [phone] Thymic carcinoma Social History Tobacco Use Types [...] Sign Reading Time Taken Comments Blood Pressure 104/58 01/07/2023 2:34 PM EDT Pulse 77 01/07/2023 2:34 PM EDT Temperature 35.9 ??C (96.7 ??F) 01/07/2023 2:34 PM ED T Respiratory Rate 18 01/07/2023 2:34 PM EDT Oxygen Saturation 98% 01/07/2023 2:34 PM EDT Inhaled Oxygen Concentration - - Weight 91.4 kg (201 lb 6.4 oz) 01/07/2023 2:34 P M EDT Height 175.3 cm (5' 9.02) 01/07/2023 2:34 PM ED T Body Mass Index 29.73 01/07/2023 2:34 PM EDT documented in this encounter Progress Notes * Shon Schneider MD - 01/07/2023 2:30 PM EDT Subjective: Patient ID: Monica Jaramillo [...] pleural effusion with compression atelectasis. transferred to [facility] for further evaluation and workup and had [...] B. Biopsy of mediastinal mass 03/29 Path ([facility] review) - Mediastinum, mass, biopsy: 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 [facility] - CONSULT SLIDES FROM [facility]; [place], [place]: A. MEDIASTINUM, MASS, BIOPSY ([id number]; 03/22/2017): MALIGNANT THYMIC EPITHELIAL NEOPLASM consistent with THYMIC CARCINOMA, NON-KERATINIZING SQUAMOUS CELL TYPE; see NOTE. Immunohistochemistry performed at the outside institution and reviewed at [facility] demonstrates the following staining profile in lesional cells: Positive - AE1/AE3, p40, PAX8, CD117, CD5(multifocal), CK7(scattered cells), synaptophysin, chromogranin Negative - CK20, TTF-1, GATA3, CD34 The immunohistochemical profile supports the above diagnosis. Ki67 (MIB-1) proliferation index performed at the referring institution and reviewed at [facility] is focally up to ~30%. 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 The extent of PAX8 and CD117 staining would be unusual for Nut carcinoma. B. MEDIASTINUM, ANTERIOR, 4.5 CM, ULTRASOUND GUIDED FINED NEEDLE ASPIRATION ([id number]; 03/22/17): The cytologic preparations were not reviewed [...] Second opinion with Dr. Roddy Vega in [place]. They reviewed the pathology and concurred [...] therapy with pembrolizumab L. CT c/a/p 11/06/19 ([facility] second read) - IMPRESSION 1. Worsening left-sided [...] is summarized above. Monica was admitted to [facility] from 10/22 to 11/07/22. She had presented [...] of discharge was 191,000, Hgb- 7.6. She has been persistently anemic, uncertain etiology. Monica is accompanied to clinic today by her daughter Cass. She is feeling well overall. No SOB. The LE edema is much better than when she was in the hospital but not gone. She has been managing well at home. She is ambulatory with a walker. She did have an episode when she was up with her walkerin the dark and ran into a box. She struck her right chest on the walker and had an area of ecchymosis and hematoma. Soc Hx: , lives in [place], [place] Tob - Never Etoh - rare [...] Vitals reviewed. HENT: Head: Normocephalic and atraumatic. Mouth/Throat: Pharynx: Oropharynx is clear. No oropharyngeal exudate. Eyes: General: No scleral icterus. Cardiovascular: Rate and Rhythm: Normal rate and regular rhythm. Heart sounds: Murmur heard. Pulmonary: Effort: Pulmonary effort is normal. Breath sounds: No wheezing or rales. Comments: Decreased BS at lungs, right greater than left Musculoskeletal: Right lower leg: Edema present. Left lower leg: Edema present. Lymphadenopathy: Cervical: No cervical adenopathy. Upper Body: Right upper body: No supraclavicular adenopathy. Left upper body: No supraclavicular adenopathy. Skin: General: Skin is warm and dry. Findings: No rash. Neurological: General: No focal deficit present. Mental Status: She is alert. Labs: (01/06/23): WBC/ANC - 4.07/2399, Hgb/Hct - 10.1/32.7, [...] pembrolizumab. I spoke with Dr. Vega at [facility]. There were no clinical trials available there. [...] Ramon at [facility]. He agreed that gemcitabine plus capecitabine is [...] reduced by 50%. Monica was admitted to [facility] from 10/22 to 11/07/22. She had presented [...] right corresponds with an area of trauma. TAVR is scheduled on 01/19/23. In terms of the cancer, given the stability of the scan, we will continue to observe. I will plan atelehealth visit with her in 3 weeks with labs prior. documented in this encounter Plan of Treatment Upcoming Encounters Date Type Department Care Team (Late st Contact Info) Description 02/24/2024 9:00 AM EDT Office Visit Hematology/Oncology at [address] [phone] Shon Schneider MD [facility] [address] [address] HEMATOLOGY AND ONCOLOGY [place], [place] [address] [phone] 02/24/2024 9:30 AM EDT Infusion Hematology Oncology at [address] [phone] 03/02/2024 11:00 AM EDT Office Visit Hematology/Oncology at [address] [phone] Shon Schneider MD [facility] [address] [address] HEMATOLOGY AND ONCOLOGY [place], [place] [address] 03/02/2024 12:30 PM EDT Infusion Hematology Oncology at [address] [phone] 03/09/2024 10:00 AM EDT Office Visit Hematology/Oncology at [address] [phone] Shon Schneider MD [facility] [place] [address] Ciara Pitts [address] HEMATOLOGY AND ONCOLOGY [place], [place] [address] [phone] 03/09/2024 10:30 AM EDT Infusion Hematology Oncology at [address] [phone] documented as of this encounter Goals Goal Patient Goal Type Associated Problems Recent Progress Patient-Stated? 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
--- OUTSIDE RECORDS SUMMARY | 2024-02-24 01:15 | XMS_ITS | Encounter Summary ---
Author Organization [facility] Address [place] [address] Care Team Providers Care Assistant Refinery Operator Name Role Phone Jerzy Vidal MD Primary Care Provider [phone] Reason for Referral * Diagnostic Test (Routine) - Closed Specialty Diagnoses / Procedures Referred By Franklyn del rio Referred To Contact Cardiology Diagnoses Severe aortic stenosis Procedures Echocardiogram Transthoracic Edvin Sultana MD [facility] [place] [address] [facility] [place] [address] Referral ID Status Reason Start Date Expiration Date V isits Requested Visits Authorized [id number] Closed Specialty Service Requested 12/04/2022 12/04/2023 1 1 Encounter Details Date Type Department Care Team (Late st Contact Info) Description 12/03/2022 Orders Only Cardiology at [address] [phone] Edvin Sultana MD [facility] [place] [address] Severe aortic stenosis Social History [...] AM EDT Office Visit Hematology/Oncology at [address] [phone] Shon Schneider MD [facility] [place] [address] HEMATOLOGY AND ONCOLOGY [place], [place] [phone] 02/24/2024 9:30 AM EDT Infusion Hematology Oncology at [address] [phone] 03/02/2024 11:00 AM EDT Office Visit Hematology/Oncology at [address] [phone] Shon Schneidre MD [facility] [place] [address] [address] HEMATOLOGY AND ONCOLOGY [place], [place] [address] 03/02/2024 12:30 PM EDT Infusion Hematology Oncology at [address] [phone] 03/09/2024 10:00 AM EDT Office Visit Hematology/Oncology at [address] [phone] Shon Schneider MD [facility] [place] [address] [address] HEMATOLOGY AND ONCOLOGY [place], [place] [address] 03/09/2024 10:30 AM EDT Infusion Hematology Oncology at [address] [phone] documented as of this encounter Goals Goal Patient Goal Type Associated Problems Recent Progress Patient-Stated? Author DH Home Medication Compliance and Understanding Patient Facing Action Plan On track( 019 3:22 PM EST) No Ivana Vanegas, [facility] Note: Remain 95% or better adherent to chemotherapy without severe side effects as assessed by days supply and patient reported adverse events at each refill documented as of this encounter Results * ECHO COMPLETE (03/25/2023 12:16 PM EDT) Anatomical Region Laterality Modality Cardiac Other 03/25/2023 11:3 6 AM EDT Narrative 03/25/2023 12:23 PM EDT ? Echocardiogram Report Name: MONICA PIERRE ?Study Date: 03/25/2023 11:36 AMBP: 133/67 mmHg ? Patient Location: 4A : 1955 ? Height: 175 cm ? Account: [id number] Age: 67 yrs ? Weight: 92 kg Gender: Female ?BSA: 2.1 m2 Ordering Physician: EDVIN SULTANA Referring Physician: EDVIN SULTANA Performed By: Kari Francois RDCS Reason For Study: Severe aortic stenosis [I35.0 (ICD-10-CM)] Exam Location: [facility]. Interpretation Summary -Left ventricular systolic function is [...] post implant study, RVSP is lower. Procedure Complete-[id number]. Satisfactory quality. Left Ventricle Left ventricle is [...] Echocardiogram Report Name: MONICA PIERRE Study Date: :36 AMBP: 133/67 mmHg Patient Location: : 1955 Height: 175 cm Account: [id number] Age: 67 yrs Weight: 92 kg Gender: Female BSA: 2.1 m2 Ordering Physician: EDVIN SULTANA Referring Physician: EDVIN SULTANA Performed By: Kari Francois RDCS Reason For Study: Severe aortic stenosis [I35.0 (ICD-10-CM)] Exam Location: [facility]. Interpretation Summary -Left ventricular systolic function is [...] post implant study, RVSP is lower. Procedure Complete-[id number]. Satisfactory quality. Left Ventricle Left ventricle is [...] Diagnosis Severe aortic stenosis Aortic valve disorders Severe aortic stenosis Aortic valve disorders Thymic carcinoma Malignant neoplasm of thymus documented in this encounter Care Teams Assistant Refinery Operator Relationship Specialty Start Date End Date Jerzy Vidal MD [address] [place] [address] [place] [address] PCP - [facility] Medicine 12/04/18 documented as of this encounter
--- OUTSIDE RECORDS SUMMARY | 2024-02-24 01:15 | XMS_ITS | Encounter Summary ---
Author Organization [facility] Address [facility] [place] [address] Care Team Providers Care Classroom Teacher Name Role Phone Jerzy Vidal MD Primary Care Provider [phone] Encounter Details Date Type Department Care Team (Late st Contact Info) Description 11/23/2022 1:00 PM EDT Office Visit Cardiology at [address] [phone] Juan Miguel Castorena APRN [facility] [place] [address] Severe aortic stenosis (Primary Dx); Persistent atrial fibrillation; Essential hypertension; Thymic cancer; Congestive heart failure, unspecified HF chronicity, unspecified heart failure type Social History Tobacco Use Types Packs/Day [...] Time Taken Comments Blood Pressure 105/61 11/23/2022 11:05 AM EDT Pulse 73 11/23/2022 11:05 AM EDT Temperature - - Respiratory Rate - - Oxygen Saturation 98% 11/23/2022 11:05 AM EDT Inhaled Oxygen Concentration - - Weight 89.4 kg (197 lb) 11/23/2022 11:05 AM EDT Height 174 cm (5' 8.5) 11/23/2022 11:05 AM EDT Body Mass Index 29.51 11/23/2022 11:05 AM EDT documented in this encounter Progress Notes * Roddy Sultana MD - 11/23/2022 1:00 PM EDT Images from the original note were not included. [facility] [place] [address] Structural Heart New Patient Subjective: HPI: Monica Jaramillo is a female with past medical history significant for Monica Jaramillo is a 67 y.o. 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 She presents to clinic in follow up for outpatient TAVR evaluation following initial SHD consultation during recent hospitalization. From consultation note by myself 11/04/2022 She appears euvolemic on exam and reports profound improvement in her functional capacity. It is reassuring that her thrombocytopenia is improved with steroid therapy and appropriately back on AC forher Afib. Her hemoglobin has been stable with index drop to 6.8 today, status post PRBC X 1. It raises question how much her severe contributed to her clinical deterioration over the past three mon ths considering her symptoms of volume overload and subsequent initiation of loop diuretic with refractory hypervolemia shortly after starting her current chemotherapy. Her AV gradients have increased since echo 02/2022 and are quite likely a contributor to her current symptoms. Her tenuous prognostic status, last noted as 6-12 months, is of great consideration when reviewing treatment of her severe with TAVR, SAVR, vs palliation alone. Today we discussed the natural physiology of severe aortic stenosis and the expected progression of the disease and resulting heart failure advancement without valvular intervention. We briefly discussed the risks involved with TAVR, including but not limited to bleeding, need for permanent pacemaker, and unexpected complications requiring life-sustaining interventions. We overviewed the concern for procedures including TAVR in the setting of her shorter prognosis from hematology/oncology. It was recommended that she speak with Dr. Osei from palliative care and advanced heart failure to review her goals of care in the setting of severe for TAVR evaluation vs palliation vs palliative TAVR. We will follow with primary team and Dr. Osei forongoing plan. NYHA FC III - marked limitation of activity CCS [address] Osei, 11/05/2022 Monica understands that given this progression of her heart disease, we are in a different place now, and her decision about how to manage her aortic stenosis could impact her quality of life, and also pose potential risk. She and her daughter Yoly have discussed it, and they are both in favor ofproceeding with intervention on the valve if it is offered. They understand there are procedural risks, including a range of things from , to stroke, to renal dysfunction, to more time in the hospital. They also acknowledge, that without intervention, Monica's symptoms will likely recur, which will limit her quality of life. Given this, Monica hopes to proceed with intervention, with a goal ofbeing able to get home and stay home, with fewer heart failure and aortic stenosis symptoms, so that she may better participate in her life, for whatever time she has remaining. Monica's prognosis remains difficult to predict, especially given that she has outlived previous predications. In discussion with her oncologist, it seems that at this point, a prognosis of a year or less is most likely. Given the potential for this amount of time, and Monica's significantly symptomsthat due seem likely related to her aortic stenosis, it does seem reasonable to consider intervention if it is technically feasible. She is currently tolerating anticoagulation without bleeding complications. Today she notes feeling remarkably well from a heart failure and anginal perspective. She denies dizziness, pre-syncope, or syncope. Denies chest pain, chest pressure, or palpitations. Endorses dyspnea with exertion is improved but persistent reduction in her previous functional capacity. Pt notes lower extremity swelling is stable. Patient Active Problem List Diagnosis Platelet disorder Abnormal uterine bleeding Pancytopenia Atrial fibrillation Overview Note: Treated with metoprolol, diltiazem, eliquist Essential hypertension Hypothyroidism Overview Note: Secondary to Sutent Thymic carcinoma Denies any chest pain, shortness of breath, palpitations, near-syncope, or syncopal events. Denies swelling in abdomen, lower extremities, dyspnea, orthopnea, PND. Social History Family History Reviewed Problem List Severe Aortic Stenosis Stage 4 Thymic Cancer Patient Active Problem List Diagnosis Code Thymic carcinoma C37 Pancytopenia D61.818 Atrial fibrillation I48.91 Essential hypertension I10 Hypothyroidism E03.9 Abnormal uterine bleeding N93.9 Platelet disorder D69.1 ROS: 12+ ROS reviewed and negative except as detailed in the HPI. Medications: Current Outpatient Medications Medication Sig Note Dispense Refill lidocaine (Lidoderm) 5% Adhesive Patch, [...] Sust.Rel. Particle/Crystal Take 1 tablet by mouthdaily. 10/08/2022: 40mEq/day 30 tablet 5 ondansetron (Zofran) 8 mg Tablet Take 1 tablet by mouth every 8 hours as needed for Nausea. 01/29/2022: Has not needed 20 tablet 3 acetaminophen (TYLENOL) 500 mg Tablet Take 1,000 mg by mouth every 6 hours as needed for Pain. ascorbic acid, vitamin C, (VITAMIN C) 500 mg Tablet, Chewable Take 1 tablet by mouth daily. apixaban (Eliquis) 5 mg Tablet Take 5 mg by mouth 2 times daily. multivitamin (THERAGRAN) Tablet Take 1 tablet by mouth daily. Objective: Vitals: Vitals: 11/23/22 1105 BP: 105/61 Pulse: 73 SpO2: 98% Weight: 89.4 kg (197 lb) Height: 174 cm (5' 8.5) Physical Exam: General: Pleasant female , no acute distress HEENT: Normocephalic, atraumatic, benign NECK: Supple, no masses, FROM CV: Normal rate, regular rhythm, systolic murmur w/ distant S2, no ventricular heaves RESP: CTAB, moving air well, symmetric chest excursion GI: Soft, nd, nttp EXT: No cyanosis/clubbing, + carmelo LE edema, preserved distal pulses NEURO: No gross focal deficits, gait by wheelchair PSYC: Appropriate mood and affect, alert and oriented DERM: No rash, wwp Assessment and Plan: Monica Jaramillo is a 67 y.o. female with past medical history significant for Monica Jaramillo is a 67 y.o. 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 She presents to clinic in follow up for outpatient TAVR evaluation following initial SHD consultation during recent hospitalization. She appears and states to be doing quite well given her medical complexity. In chris conversation, we discussed the concerns regarding an additional procedure in the context of her unknown prognosis specific to her stage 4 thymic cancer. She noted that her > 5 years of active cancer survival, paired with what she views as an adequate quality of life, makes proceeding with TAVR her preferred trajectory at this time. The pt continues to echo similar philosophy on her medical care as noted by Dr. Osei in consultation. Considering her willingness to proceed with an invasive procedure despite the risks, including but not limited to stroke, need for permanent pacemaker, and [facility] improving her current heart failure symptoms, it would be reasonable to proceed with TAVR. She has met with cardiac surgery, and CT TAVR scans complete. NYHA FC II - slight limitation of activity CCS 0. Assessment Severe Aortic Stenosis Stage 4 thymic cancer Recommendations TAVR work up complete Plan to schedule for outpatient TAVR Thank you for the opportunity to participate in this patient's cardiovascular care. Juan Miguel Castorena APRN Structural Heart Disease Pager [phone] Please see addendum by Dr. Sultana for final plan and recommendations. A shared decision making discussion was completed with Monica Jaramillo including an overview of therisks and benefits of all treatment options. Careful consideration of their goals, values, and preferences were included in the discussion. Cardiology Staff --- Medical Decision Making I shared this visit with Juan Miguel Castorena APRN. My role was to review the history, exam, and laboratory and imaging findings and to formulate the assessment and plan. This included review of records prior to appointment, face to face time with patient during visit, documentation, chromosomal disorders counselor, and coordination of care. We held a detailed shared decision-making discussion with Ms. Jaramillo with regardsto her severe aortic valve stenosis. She does have NYHA Class II symptomatology, and would meet a class I indication for (T)AVR. She has previously met with my advanced heart failure and palliative care colleague Dr. Osei in independent consultation with regards to goals of care discussion. Monica is clear in her desire to move forward with TAVR at this point of time, understanding this would be primarily for symptom palliation/quality of life improvement. By review of her CTA imaging, her ileofemoral anatomy does appear suitable for large bore access. She has met independently with my CTS partner, Dr. Poon, as well. Will plan to facilitate scheduling via our SHD [facility] office. [facility]. Roddy Sultana MD Director, Structural Heart Disease Pager [phone] documented in this encounter Plan of Treatment Upcoming Encounters Date Type Department Care Team (Late st Contact Info) Description 02/24/2024 9:00 AM EDT Office Visit Hematology/Oncology at [address] [phone] Shon Schneider MD [facility] [place] [address] Ciara Pitts APRN [address] [place] [address] DR HEMATOLOGY AND ONCOLOGY [place], [place] [address] 02/24/2024 9:30 AM EDT Infusion Hematology Oncology at [address] [phone] 03/02/2024 11:00 AM EDT Office Visit Hematology/Oncology at [address] [phone] Shon Schneider MD [facility] [address] [address] HEMATOLOGY AND ONCOLOGY [place], [place] [phone] 03/02/2024 12:30 PM EDT Infusion Hematology Oncology at [address] [phone] 03/09/2024 10:00 AM EDT Office Visit Hematology/Oncology at [address] [phone] Shon Schneider MD [facility] [place] [address] HEMATOLOGY AND ONCOLOGY [place], [place] [phone] 03/09/2024 10:30 AM EDT Infusion Hematology Oncology at [address] [phone] documented as of this encounter Goals Goal [...] as of this encounter Visit Diagnoses Diagnosis Severe aortic stenosis- Primary Aortic valve disorders Persistent atrial fibrillation Atrial fibrillation Essential hypertension Unspecified essential hypertension Thymic cancer Malignant neoplasm of thymus Congestive heart failure, unspecified HF chronicity, unspecified heart failure type Thymic carcinoma Malignant neoplasm of thymus documented in this encounter Care Teams Classroom Teacher Relationship Specialty Start Date End Date Jerzy Vidal MD [address] [place] [address] [place] [address] PCP - [facility] Medicine 12/04/18 documented as of this encounter
--- OUTSIDE RECORDS SUMMARY | 2024-02-24 01:15 | XMS_ITS | Encounter Summary ---
Author Organization [facility] [place] [address] Care Team Providers Care Director Of Corporate Communications Name Role Phone Jerzy Vidal MD Primary Care Provider [phone] Reason for Visit * Reason Onset Date Comments Follow-up 11/17/2022 One week post maryam velasquez follow up call Encounter Details Date Type Department Care Team (Late st Contact Info) Description 11/16/2022 [place] [phone] Mark Roberson MA Follow-up (One week post discharge follow up call) Social [...] Sign Reading Time Taken Comments Blood Pressure - - Pulse - - Temperature - - Respiratory Rate - - Oxygen Saturation - - Inhaled Oxygen Concentration - - Weight 88 kg (194 lb 1.6 oz) 11/17/2022 1:00 PM EDT Height - - Body Mass Index 29.51 11/05/2022 1:21 PM EDT documented in this encounter Miscellaneous Notes * Telephone Encounter - Mark Roberson MA - 11/16/2022 12:08 PM EDT Post-Discharge Heart Failure Phone Note Interview status: Complete If patient not reached, delete the rest [...] up scheduled hospital check appointment before 11/29/22. Symptoms: Ask the patient: How are you [...] place you can record your weights? Yes What was your highest weight since discharge or last call: 194.4 lbs Lowest home weight (enter w/ calculator): 190 lbs First home weight (lb)? 190.2 11/11/2022 Current weight (lb)? 194.1 lbs 11/17/22 193.9 lbs 11/16/22 194.4 lbs 11/15/22 Do you have (name of diuretic) accessible to you? Yes Are you taking it according to these instructions? Yes taking Furosemide 160 mg qd x 4 days Do you have contact information for your PCP or Jack Tamp Operator or Home Health Agency? Yes Please say yes or no to indicate whether you acknowledge the following: - Do you know when your PCP and/or cardiology follow up appointment(s) are? Yes - Do you have transportation to and from that appointment? Yes- patient states she relies on dillon layton for rides. - Did this encounter lead to a message or call to the provider? Yes If yes, to who? PCP Type of message sent: Call Expected time of next check in: 1 week documented in this encounter Plan of Treatment Upcoming Encounters Date Type Department Care Team (Late st Contact Info) Description 02/24/2024 9:00 AM EDT Office Visit Hematology/Oncology at [address] [phone] Shon Schneider MD [facility] [place] [address] Ciara Pitts APRN [address] [place] [address] H[place]ATOLOGY [place] [address] 02/24/2024 9:30 AM EDT Infusion Hematology Oncology at [address] [phone] 03/02/2024 11:00 AM EDT Office Visit Hematology/Oncology at [address] [phone] Shon Schneider MD [facility] [place] [address] HEMATOLOGY [place] [address] 03/02/2024 12:30 PM EDT Infusion Hematology Oncology at [address] [phone] 03/09/2024 10:00 AM EDT Office Visit Hematology/Oncology at [address] [phone] Shon Schneider MD [facility] [place] [address] HEMATOLOGY AND ONCOLOGY [place], [place] [address] 03/09/2024 10:30 AM EDT Infusion Hematology Oncology at [address] [phone] documented as of this encounter Goals Goal [...] on filedocumented in this encounter Care Teams Director Of Corporate Communications Relationship Specialty Start Date End Date Jerzy Vidal MD [address] [place] [address] [place] [address] PCP - [facility] Medicine 12/04/18 documented as of this encounter
--- OUTSIDE RECORDS SUMMARY | 2024-02-24 01:15 | XMS_ITS | Encounter Summary ---
Author Organization [facility] Address [facility] [place] [address] Care Team Providers Care Associate Professor Of Criminal Justice Name Role Phone Jerzy Vidal MD Primary Care Provider [phone] Encounter Details Date Type Department Care Team (Late st Contact Info) Description 11/19/2022 1:00 PM EDT Office Visit Hematology/Oncology at [address] [phone] Shon Schneider MD [facility] [place] [address] Ciara Pitts APRN [address] [place] [address] DR HEMATOLOGY AND ONCOLOGY [place], [place] [phone] Thymic carcinoma; Acute bilateral knee pain Social History Tobacco Use Types Packs/Day Years [...] Sign Reading Time Taken Comments Blood Pressure 101/51 11/19/2022 1:03 PM EDT Pulse 78 11/19/2022 1:03 PM EDT Temperature 36.2 ??C (97.1 ??F) 11/19/2022 1:03 PM ED T Respiratory Rate 18 11/19/2022 1:03 PM EDT Oxygen Saturation 100% 11/19/2022 1:03 PM EDT Inhaled Oxygen Concentration - - Weight 89.7 kg (197 lb 11.2 oz) 11/19/2022 1:03 PM EDT Height 175.3 cm (5' 9.02) 11/19/2022 1:03 PM ED T Body Mass Index 29.18 11/19/2022 1:03 PM EDT documented in this encounter Progress Notes * Shon Schneider MD - 11/19/2022 1:00 PM EDT Subjective: Patient ID: Monica [...] pleural effusion with compression atelectasis. transferred to [facility] for further evaluation and workup and had [...] B. Biopsy of mediastinal mass 03/29 Path ([facility] review) - Mediastinum, mass, biopsy: 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 [facility] - CONSULT SLIDES FROM [facility]; [place], [place]: A. MEDIASTINUM, MASS, BIOPSY ([id number]; 03/22/2017): MALIGNANT THYMIC EPITHELIAL NEOPLASM consistent with THYMIC CARCINOMA, NON-KERATINIZING SQUAMOUS CELL TYPE; see NOTE. Immunohistochemistry performed at the outside institution and reviewed at [facility] demonstrates the following staining profile in lesional cells: Positive - AE1/AE3, p40, PAX8, CD117, CD5(multifocal), CK7(scattered cells), synaptophysin, chromogranin Negative - CK20, TTF-1, GATA3, CD34 The immunohistochemical profile supports the above diagnosis. Ki67 (MIB-1) proliferation index performed at the referring institution and reviewed at [facility] is focally up to ~30%. 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 The extent of PAX8 and CD117 staining would be unusual for Nut carcinoma. B. MEDIASTINUM, ANTERIOR, 4.5 CM, ULTRASOUND GUIDED FINED NEEDLE ASPIRATION ([id number]; 03/22/17): The cytologic preparations were not reviewed [...] Second opinion with Dr. Roddy Vega in [place]. They reviewed the pathology and concurred they [...] therapy with pembrolizumab L. CT c/a/p 11/06/19 ([facility] second read) - IMPRESSION 1. Worsening left-sided [...] is summarized above. Monica was admitted to [facility] from 10/22 to 11/07/22. She had presented [...] to the ED and received ablood transfusion. Monica is accompanied to clinic today by her daughter Cass. She is feeling pretty well overall. She is able to get in and out of the care better. She still has some LE edema. She has been taking lasix, 160 mg per day. She did not feel poorly before the blood was given. Her appetite is good. She says her breathing is wonderful. No SOB. She is getting up and around the house much better, using her walker. No fevers or chills. Soc Hx: , lives in [place], [place] Tob - Never Etoh - rare [...] and atraumatic. Eyes: General: No scleral icterus. Cardiovascular: Rate and Rhythm: Normal rate and regular rhythm. Heart sounds: Murmur heard. Pulmonary: Effort: No respiratory distress. Comments: Decreased at bases, moreso on right than left Abdominal: General: There is no distension. Tenderness: There is no abdominal tenderness. Musculoskeletal: General: Swelling (bilateral LE edema) present. Skin: General: Skin is warm and dry. Findings: No rash. Neurological: General: No focal deficit present. Mental Status: She is alert. Psychiatric: Mood and Affect: Mood normal. Labs: (11/17/22): WBC/ANC - 7., Hgb/Hct - 6.3/20.4, Plts - 118,000. BUN/Cr - 19/1.03. Na - 135,K - 3.3, Alb - 2.3, Mg - 1.3. LFTs unremarkable. (10/06/22) WBC/ANC - 4.10/3299, Hgb/Hct - 9.8/33/3, [...] pembrolizumab. I spoke with Dr. Vega at [facility]. There were no clinical trials available there. [...] also spoke with Dr. Shon Ramon at [facility]. He agreed that gemcitabine plus capecitabine is [...] reduced by 50%. Monica was admitted to [facility] from 10/22 to 11/07/22. She had presented [...] to the ED and received ablood transfusion. She feels well but says she did not feel poorly prior to the transfusion. The reason for the persistently anemia is not entirely clear. It may simply be related to prolonged recovery from chemotherapy although this does seem out of proportion to the chemotherapy and the doses that she received. I spoke with Dr. Mchugh. He is going to arrange for Monica to have some labs done at [facility] on 11/23, the day of her visit with Cardiology and will plan to call her. We will be checking weekly CBCs at this point and will transfuse as needed. In terms of the cancer, we are cotinuing to hold off on therapy at this time. We will plan a restaging CT scan in December. documented in this encounter Plan of Treatment Upcoming Encounters Date Type Department Care Team (Late st Contact Info) Description 02/24/2024 9:00 AM EDT Office Visit Hematology/Oncology at [address] [phone] Shon Schneider MD [facility] [place] [address] Ciara Pitts [address] HEMATOLOGY [place] [address] 02/24/2024 9:30 AM EDT Infusion Hematology Oncology at [address] [phone] 03/02/2024 11:00 AM EDT Office Visit Hematology/Oncology at [address] [phone] Shon Schneider MD [facility] [place] [address] [address] HEMATOLOGY [place] [address] 03/02/2024 12:30 PM EDT Infusion Hematology Oncology at [address] [phone] 03/09/2024 10:00 AM EDT Office Visit Hematology/Oncology at [address] [phone] Shon Schneider MD [facility] [place] [place] [address] Ciara Pitts APRN [address] [place] [address] DR HEMATOLOGY AND ONCOLOGY [place], [place] [id number] 03/09/2024 10:30 AM EDT Infusion Hematology Oncology at [address] [phone] documented as of this encounter Goals Goal Patient Goal Type Associated Problems Recent Progress Patient-Stated? Author DH Home Medication Compliance and Understanding Patient Facing Action Plan On track( 019 3:22 PM EST) Ivana Ashraf, [facility] Note: Remain 95% or better adherent to chemotherapy without severe side effects as assessed by days supply and patient reported adverse events at each refill documented as of this encounter Visit Diagnoses Diagnosis Thymic carcinoma Malignant neoplasm of thymus Acute bilateral knee pain Thymic carcinoma Malignant neoplasm of thymus documented in this encounter Care Teams Associate Professor Of Criminal Justice Relationship Specialty Start Date End Date Jerzy Vidal MD [address] [place] [address] [place] [address] PCP - [facility] Medicine 12/04/18 documented as of this encounter
--- OUTSIDE RECORDS SUMMARY | 2024-02-24 01:15 | XMS_ITS | Encounter Summary ---
Author Organization [facility] [place] [address] Care Team Providers Care Research Methodologist Name Role Phone Jerzy Vidal MD Primary Care Provider [phone] Encounter Details Date Type Department Care Team (Late st Contact Info) Description 12/16/2022 Telephone Hematology/Oncology at [address] [phone] Lashawn Skelton, RN Social History [...] Telephone Encounter - Lashawn Skelton RN - 12/16/2022 2:20 PM EDT Monica Jaramillo [id number] Diagnosis: pancytopenia, thymic carcinoma Labs: CBCw/ diff and retic count weekly ([facility] draw- [facility]) Medications: Last chemo: Pemetrexed 10/29/22 Standing transfusion orders at [facility] infusion: 1 unit of PRBCs for hg less than 8 and 2 units of PRBCs for hg less than 7 Assessment/Plan: Labs sent to Dr. Schneider and Dr. Mchugh for review. No transfusions needed today.Will get labs again 12/23, called [facility] to ask that they do them again. Latest Reference Range & Units 12/01/22 00:00 12/09/22 00:00 12/16/22 00:00 WBC 3.4 (E) 2.5 (E) 3.1 (E) Hemoglobin 6.2 !! (E) 7.1 (E) 9.4 (E) Hematocrit 20.2 !! (E) 22.7 (E) 29.9 (E) Platelets 131 (E) 192 (E) 225 (E) Retic Ct % 0.5 - 2.4 2.6 (E) 3.5 (E) 4.5 (E) Neutr Abs (ANC) 2.7 (E) 1.6 (E) !!: Data is critical (E): External lab result documented in this encounter Plan of Treatment Upcoming Encounters Date Type Department Care Team (Late st Contact Info) Description 02/24/2024 9:00 AM EDT Office Visit Hematology/Oncology at [address] [phone] Shon Schneider MD [facility] [place] [address] [address] HEMATOLOGY AND ONCOLOGY [place], [place] [id number] 02/24/2024 9:30 AM EDT Infusion Hematology Oncology at [address] [phone] 03/02/2024 11:00 AM EDT Office Visit Hematology/Oncology at [address] [phone] Shon Schneider MD [facility] [place] [address] [address] HEMATOLOGY AND ONCOLOGY [place], [place] [id number] 03/02/2024 12:30 PM EDT Infusion Hematology Oncology at [address] [phone] 03/09/2024 10:00 AM EDT Office Visit Hematology/Oncology at [address] [phone] Shon Schneider MD [facility] [place] [address] Ciara Pitts APRN [address] [place] [address] [place] [address] 03/09/2024 10:30 AM EDT Infusion Hematology Oncology at [address] [phone] documented as of this encounter Goals Goal Patient Goal Type Associated Problems Recent Progress Patient-Stated? Author DH Home Medication Compliance and Understanding Patient Facing Action Plan On track( 019 3:22 PM EST) No Iavna Vanegas, [facility] Note: Remain 95% or better adherent to chemotherapy without severe side effects as assessed by days supply and patient reported adverse events at each refill documented as of this encounter Procedures Procedure Name Priority Date/Time Associated Diagnosis Comments RETICULOCYTE COUNT Routine 12/16/2022 CBC (WITH DIFF) Routine 12/16/2022 documented in this encounter Results * CBC (with Diff) (12/16/2022) White Blood Cell 3.1 Hemoglobin 9.4 Hematocrit 29.9 Platelet 225 Blood 12/16/2022 Historical Provider HEMATOLOGY ORDERA BLES * Reticulocyte Count (12/16/2022) Reticulocyte % 4.5 Blood 12/16/2022 Historical Provider HEMATOLOGY ORDERA BLES documented in this encounter Visit Diagnoses Not on filedocumented in this encounter Care Teams Research Methodologist Relationship Specialty Start Date End Date Jerzy Vidal MD [address] [place] [address] [place] [address] PCP - General [facility] Medicine 12/04/18 documented as of this encounter
--- OUTSIDE RECORDS SUMMARY | 2024-02-24 01:15 | XMS_ITS | Encounter Summary ---
[place] [address] Care Team Providers Care Research Rn Spec Name Role Phone Jerzy Vidal MD Primary Care Provider [phone] Reason for Visit * Reason Onset Date Comments Follow-up 12/07/2022 Four week post d ischarge follow up call Encounter Details Date Type Department Care Team (Late st Contact Info) Description 12/07/2022 [place] [phone] Mark Roberson MA Follow-up (Four week post discharge follow up call) Social [...] Telephone Encounter - Mark Roberson MA - 12/07/2022 10:01 AM EDT Post-Discharge Heart Failure Phone Note Interview status: Patient not reached after multiple attempts documented in this encounter Plan of Treatment Upcoming Encounters Date Type Department Care Team (Late st Contact Info) Description 02/24/2024 9:00 AM EDT Office Visit Hematology/Oncology at [address] [phone] Shon Schneider MD [facility] [place] [address] [address] HEMATOLOGY AND ONCOLOGY [place], [place] [address] [phone] 02/24/2024 9:30 AM EDT Infusion Hematology Oncology at [address] [phone] 03/02/2024 11:00 AM EDT Office Visit Hematology/Oncology at [address] [phone] 98 Shon Schneider MD [facility] [place] [address] [address] HEMATOLOGY AND ONCOLOGY [place], [place] [id number] 03/02/2024 12:30 PM EDT Infusion Hematology Oncology at [address] [phone] 03/09/2024 10:00 AM EDT Office Visit Hematology/Oncology at [address] [phone] Shon Schneider MD [facility] [place] [address] [address] HEMATOLOGY AND ONCOLOGY [place], [place] [phone] 03/09/2024 10:30 AM EDT Infusion Hematology Oncology at [address] [phone] documented as of this encounter Goals Goal Patient Goal Type Associated Problems Recent Progress Patient-Stated? Author DH Home Medication Compliance and Understanding Patient Facing Action Plan On track( 019 3:22 PM EST) No Ivana Vanegas, [facility] Note: Remain 95% or better adherent to chemotherapy without severe side effects as assessed by days supply and patient reported adverse events at each refill documented as of this encounter Visit Diagnoses Not on filedocumented in this encounter Care Teams Research Rn Spec Relationship Specialty Start Date End Date Jerzy Vidal MD [address] [place] [address] [place] [address] PCP - [facility] Medicine 12/04/18 documented as of this encounter
--- OUTSIDE RECORDS SUMMARY | 2024-02-24 01:16 | XMS_ITS | Encounter Summary ---
Author Organization [facility] [place] [address] Care Team Providers Care [employer] Thread Winder Name Role Phone Jerzy Vidal MD Primary Care Provider [phone] Reason for Referral * Home Health Care (Routine) - Closed Specialty Diagnoses / Procedures Referred By Franklyn t Referred To Contact Diagnoses Thymic carcinoma Aortic valve stenosis, etiology of cardiac valve disease unspecified Douglas Escobedo MD [facility] [place] [address] Referral ID Status Reason Start Date Expiration Date V isits Requested Visits Authorized [id number] Closed Consult, Test & Treat 11/07/2022 05/06/2023 999 999 Reason for Visit * Auth/Cert (Routine) Specialty Diagnoses / Procedures Referred By Franklyn del rio Referred To Contact Diagnoses Platelet disorder Edema and anasarca Procedures EMERGENCY IPI Cindy Yadav MD [facility] [place] [address] [facility] Referral ID Status Reason Start Date Expiration Date Visits Re quested Visits Authorized [id number] 1 1 Encounter Details Date Type Department Care Team (Late st Contact Info) Description 10/22/2022 9:50 PM EDT - 11/07/2022 12:09 PM EDT Hospital Encounter Hematology/Oncolog y Unit Level [address] [place] [address] [place] [address] [place] [address] Saul Randolph III, [place] [address] [place] [address] [place] [address] [place] [address] Pleural effusion, bilateral; Atrial fibrillation, unspecified type; Thymic carcinoma; Aortic valve stenosis, etiology of cardiac valve disease unspecified Discharge Disposition: Home with VNA Social History Tobacco Use Types Packs/Day Years [...] Sign Reading Time Taken Comments Blood Pressure 108/56 11/07/2022 8:48 AM EDT Pulse 72 11/07/2022 12:03 AM EDT Temperature 36.9 ??C (98.4 ??F) 11/07/2022 8:48 AM ED T Respiratory Rate 19 11/07/2022 8:48 AM EDT Oxygen Saturation 100% 11/07/2022 8:48 AM EDT Inhaled Oxygen Concentration - - Weight 90.1 kg (198 lb 10.2 oz) 11/07/2022 1:45 AM EDT Height 172.7 cm (5' 8) 10/22/2022 9:52 PM EDT Body Mass Index 30.2 11/05/2022 1:21 PM EDT documented in this encounter Discharge Summaries * Dennise Peres MD - 11/07/2022 9:46 AM EDT Patient Name: Brayan Jaramillo Patient Age: 67 y.o. Language: Ugandan Race: White Ethnicity: Not nor Admit date: 10/22/2022 Discharge date and time: 11/07/2022 Attending Physician: Saul Garcia MD Discharge Physician: Sual Garcia MD Follow-up Recommendations for Providers: 1. 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 On day is discharge, plt count is 197. 2. Brayan was found to have heart failure 2/2 severe aortic stenosis. Over 20 lbs of fluid were diuresed. She has been instructed to follow a weight based diuretic dosing schedule. Standing weight on day of discharge is 198 lbs. Please monitor and titrate diuretic dosing as needed. 3. Brayan has been instructed to continue taking the potassium supplementation from prior to admission. Please monitor and adjust as needed. On day of discharge, potassium was 3.2 prior to repletion. 4. Brayan's dose of Diltiazem was reduced from 240 mg qd to 180 mg qd. She was maintained on this dose while in house with adequate HR control. 5. Brayan and daughter Cass met with our structural heart team and with at dual trained advanced heart failure/mobility specialist to discuss the pros and cons of pursuing a TAVR in the greater context of her thymic cancer. Brayan and Cass decided to proceed with TAVR. Inpatient Provider Contact Information: For questions regarding this document or issues relating to this hospitalization on the Medical Service, please contact your inpatient physician through the [facility] Manager Personal . Issues afterhours and on weekends will be handled by the staff on-call. Discharge Diagnoses (Hospital Problems) and Secondary Diagnoses (Chronic Problems): Active Hospital Problems Diagnosis ??? Platelet disorder Resolved Hospital Problems No resolved problems to display. Active Non-Hospital Problems Diagnosis ??? Abnormal uterine bleeding ??? Pancytopenia ??? Atrial fibrillation ??? Essential hypertension ??? Hypothyroidism ??? Thymic carcinoma Operations/Major Procedures: Operations: None Other Major Procedures: R thoracentesis 10/28 R thoracentesis 11/02 History of Presentation (per MICU admission H&P on 10/22/22): This is a very pleasant 67 year old actively undergoing chemotherapy for thymic cancer. She presented to an outside hospital for hematemesis of 4 teaspoons of blood. Brayan has a GI history only significant for a normal EGD done 3-4 decades ago for GERD but her GI history is otherwise unremarkable including no alcohol use history. She currently has no pain or localizing evidence of infection including denying abdominal pain, dysuria, or productive cough. She does endorse some abdominal and thighswelling which she reports began several months ago when she was started on everolimus for her thymic cancer. ?? Her PMH is significant otherwise for AF for which she is on dilt and Eliquis, hypothyroidism, and depression. She does not drink alcohol or use recreational substances. She is a full code. ?? At the outside hospital, the patient was found to have plts of 3 and hemoglobin of 7.1 Due to lack of access to platelets, transfer was requested to [facility]. She received one unit of pRBCs prior to transfer. She never required pressors and is satting well on [place]. Hospital Course: Pt was admitted on 10/22/22 as transfer from [facility] for hematemesis vs hemoptysis in the setting of severe thrombocytopenia, downgraded to medicine on 10/23. The following issues were addressed and she was discharged on 11/07/22. 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 The team felt that marrow suppression from chemotherapy likely wouldn't explain such a dramatically low platelet count. Work-up for intravascular hemolysis was negative. TTP unlikely with PLASMIC score of 2. DIC unlikely given normal fibrinogen. She received two platelet transfusions but the first time pre & post platelets were 5. The second time pre & post platelets were 6. Given the lack of response and other conditions being ruled out, felt that most likely pt developed ITP. Pt received 4 days dexamethasone 40mg daily from 10/23 to 10/26 and her platelets recovered nicely. On day of discharge, they were up to 197 and stable. She never had additional episodes of hematemesis and denied melena and hematochezia throughout her stay. Thus, no scope was performed. Pt was initially given BID IV PPI for GI bleed ppx, but ultimately this was transitioned to PO and stopped given her presentation. Once platelets were above 50k, weresumed her home apixaban (for A fib). #Newly discovered severe aortic stenosis #Acute hypoxic respiratory failure secondary to pulmonary edema, pleural effusions, atelectasis, improving #Volume overload/anasarca, improved CT chest & CXR from [facility] showed bilateral pleural effusions, and atelectasis.She was also noted on exam to have severe pitting edema in bilateral calves, thighs, and in her stomach and was requiring 4L NC to maintain good O2 sat. Despite resuming her home furosemide 80mg PO daily with good UOP, she continued to have a persistent oxygen requirement of 2L NC. On 10/26 CXR showed residual effusions and likely pulmonary edema. TTE also revealed previously unappreciated severe aortic stenosis. Given this, cardiology was consulted and aggressive diuresis begun. Pt responded well to IV diuretics throughout her stay and was roughly net negative ~20L over her stay. Her weight also decreased from an admission bed weight of 240 pounds to ~200 pounds, which we suspect is near her dry weight. She also underwent R-sided thoracentesis x2 on 10/28 (750mL removed) and 11/02 (1L removed). We suspect the cause of her effusions is likely 2/2 her severe aortic stenosis.We spoke with her outpatient oncologist who stated his best estimate for prognosis from her cancer at this time was 6-12 months, although she has outlived prior prognostic estimates. Following discussions with our structural heart team and an advanced heart failure/mobility specialist, Brayan elected to pursue a TAVR and she will meet with their team as an outpatient for next steps. On the day of discharge, Brayan was maintaining adequate O2 saturations on room air. She has been instructed to resume amiloride and potassium supplementation and to titrate her diuretic regimen basedon her weight. #KALEIGH, likely cardiorenal, resolved #Contraction alkalosis 2/2 aggressive diuresis, resolved #Hypokalemia 2/2 aggressive diuresis Cr on admission was 1.69, above a prior baseline from 2019 of 0.6. Her Cr gradually improved throughout her stay with diuresis. She also developed a contraction alkalosis in the setting of aggressivediuresis, resolved on day of discharge. Lytes were repleted as needed. #atrial fibrillation Pt was continued on Diltiazem 180 mg qd (dose reduced from home 240 mg qd). Once platelets were >50k, she was also restarted on home Eliquis with no signs/symptoms concerning for bleeding. #Home medications She was continued on home levothyroxine and home paroxetine 20 mg.?? Vital Signs at Discharge: BP: 108/56, Heart Rate: 72, Temp: 36.9 ??C (98.4 ??F), Resp: 19, BMI (Calculated): 36.94 Height: 172.7 cm (5' 8) (10/22/22 2152) Weight: 90.1 kg (198 lb 10.2 oz) (11/07/22 0145) Important Studies and Lab Data: Labs: Last 3 wbc, hgb, hct plt Recent Labs 11/07/22 0258 11/06/22 0419 11/05/22 0310 WBC 8.7 9.4 10.2* HGB 7.6* 7.8* 8.0* HCT 24.5* 25.4* 25.1* PLATELET 191 207 188 Last 3 Lytes Recent Labs 11/07/22 0258 11/06/22 0419 11/05/22 0310 NA 136 132* 135 K 3.2* 3.0* 3.1* CL 98 93* 92* CO2 30 31 38* BUN 13 13 16 CREATININE 0.87 0.84 0.92 Last 3 LFTs Recent Labs 10/22/22 2310 AST 23 ALT 6 ALKPHOS 49 BILITOT 1.5* BILIDIR 0.7* Last Ca, Mg, Phos Recent Labs 11/07/22 0258 CALCIUM 8.6 MAGNESIUM 0.71 Studies: CT Cardiac for Morphology & Function Final Result Pre-TAVR measurements as above. 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 Moderate to large pleural effusion on the right and small to moderate pleural effusion on the left. Associated partial compression atelectasis of the bilateral lower lobes. Right-sided port catheter ends at the most cranial aspect of the SVC. Biatrial enlargement of the heart. Thank you for letting us participate in the care of this patient. If you are a health care provider and have any questions regarding this report, please contact the number below. For patients who have questions please contact the health foster care worker that requested your imaging first. Electronically signed by: Yuki Alaniz MD, [facility] ([phone]), at 11/06/2022 8:32 AM IR Thoracentesis Right Final Result XR Chest PA & Lateral (Generic) Final Result No decrease in size of right pleural effusion with size intrafissural components. Stable smaller left pleural effusion. No pneumothorax. Thank you for letting us participate in the care of this patient. If you are a health care provider and have any questions regarding this report, please contact the number below. For patients who have questions please contact the health foster care worker that requested your imaging first. Electronically signed by: Saul Plunkett MD, [facility] ([phone]), at 11/01/2022 1:36 PM IR Thoracentesis Right Final Result XR Chest One View Final Result 1. Unchanged moderate right and small left pleural effusions. 2. Persistent mild pulmonary vascular congestion. 3. The bilateral lower lobe opacities are nonspecific and likely represent a combination of effusion and atelectasis however a component of pneumonia is difficult to exclude particularly at the right lung base. Thank you for letting us participate in the care of this patient. If you are a health care provider and have any questions regarding this report, please contact the number below. For patients who have questions please contact the health foster care worker that requested your imaging first. Electronically signed by: Saul Lemus MD, [facility] ([phone]), at 10/26/2022 12:[address] Angiogram Abdomen & Pelvis w Contrast (Generic) (Results Pending) Microbiology Results (last 7 days) No results found for the last 168 hours. Microbiology Results (last 6 months) Procedure Component Value - Date/Time Blood culture [[id number]] Collected: 10/23/22 0042 Lab Status: Final result Specimen: Blood Updated: 10/28/22 0702 Blood Culture No growth at 5 days. Blood culture [[id number]] Collected: 10/22/22 2310 Lab Status: Final result Specimen: Blood Updated: 10/28/22 0702 Blood Culture No growth at 5 days. 10/28 R pleural fluid (750cc drained) Fluid/serum LDH 0.44 (transudative) Fluid/serum protein 0.47 (transudative) LDH is 0.62 of upper limit of normal (transudative) ?? 11/02 R pleural fluid (1L drained) Fluid/serum LDH 0.62 (exudative) Fluid/serum protein 0.51 (exudative) LDH is 0.81 of upper limit of normal (exudative; felt related to recent instrumentation of right chest rather than reflective of acute process given clinical stability/improvement) ?? TTE 10/26/22: Interpretation Summary There is severe aortic stenosis. [...] pericardial effusion. See report for additional findings. Discharge to: Home/self care Updated Allergies/ADRs: Allergies Allergen Reactions ??? Kiwi (Actinidia Chinensis) Itching and Other (See Comments) Mouth swelling ??? Carboplatin ??? Penicillins Hives ??? Pollen Extracts Other (See Comments) rhinorrhea Immunizations Given this Hospitalization: There is no immunization history for the selected administration types on file for this patient. Discharge Medications: Your Medications New Medications Dose Details triamcinolone 0.1 % Cream Commonly known as: Kenalog Apply topically 2 times daily. Quantity: 30 g Refills: 0 Continued medications with new dosing Dose Details dilTIAZem CD 180 mg CD (ER) 24 hr casule Commonly known as: Cardizem CD Take 1 capsule by mouth daily. What changed: ?? medication strength ?? how much to take 180 mg Quantity: 45 capsule Refills: 3 furosemide 80 mg tablet Commonly known as: Lasix Take 1 tablet by mouth daily. What changed: medication strength 80 mg Quantity: 60 tablet Refills: 3 Continued medications, unchanged Dose Details [...] by mouth daily. 1 tablet Refills: 0 folic acid 1 mg tablet Commonly known [...] 20 mEq Quantity: 30 tablet Refills: 5 STOPPED Medications ALBUTEROL INHL fluticasone propionate 44 mcg/actuation HFA Aerosol Inhaler Commonly known as: Flovent HFA LORazepam 0.5 mg tablet Commonly known as: Ativan prochlorperazine 10 mg tablet Commonly known as: Compazine traZODone 50 mg tablet Commonly known as: Desyrel Smoking Status at Discharge: Social History Tobacco Use Smoking Status Never Smokeless Tobacco Never Last Set of Vitals and range of vitals over past 24 hours: Last value Range last 24 hrs Temperature Temp: 36.9 ??C (98.4 ??F) Temp: [36.3 ??C (97.3 ??F)-37 ??C (98.6 ??F)] Heart Rate Heart Rate: 72 Heart Rate: [72-86] Blood Pressure BP: 108/56 BP: (97-115)/(55-63) Respiratory Rate Resp: 19 Resp: [18-19] SpO2 SpO2: 100 % SpO2: [91 %-100 %] Code Status at Discharge: Attempt Cardiopulmonary Resuscitation - Inpatient Instructions Given to Patient at Discharge: Patient Instructions Patient Instructions on Discharge to Home Why you were hospitalized - you were hospitalized with low platelets, which recovered following treatment with steroids. While you were here, you were found to have heart failure due to severe aorticstenosis, which you have elected to treat with a TAVR. We removed over 20 pounds of fluid. When yougo home it will be very important to weigh yourself every day and to adjust your diuretic dose if your weight fluctuates too much (see instructions below). Call your doctor or seek medical attention if you develop the following - chest pain, shortness of breath, feeling dizzy upon standing, passing out, diarrhea, constipation lasting longer than 2 days,fevers (temperature over 100.3), chills, abdominal pain, vomiting, difficulty or discomfort when urinating, bloody or black bowel movements, or any other acute or concerning symptom. Activity level - No restrictions Diet - Please limit your sodium intake to around 2000 mg per day to prevent too much fluid from reaccumulating. Driving - No restrictions Shower/Bath - No restrictions Changes in Your Medications: New Medications: 1. Triamcinolone cream: you can apply this to your legs to help them heal. Changes in your medications: 1. Your dose of Diltiazem (Cardizem) was decreased to 180 mg daily 2. You should take 80 mg Lasix every day, unless your weight fluctuates too much. See instructions below. Follow-up Appointments Future Appointments Date Time Provider Department Center 11/19/2022 1:00 PM Shon Schneider MD [facility] 11/19/2022 1:[address] [facility]FUS[facility], ROOM [facility] 12/10/2022 1:00 PM Shon Schneider MD [facility] Hem Off [facility] 12/10/2022 1:30 PM [facility]ION, ROOM ST Hem Inf [facility] You should expect to hear from the schedulers in the Cardiology department regarding next steps foryour TAVR. If you do not hear from them within one week, you can call [phone] and ask to speakwith Dr. Saji Sultana's schedulers. Your Inpatient Medical Team at [facility] Name(s) of your inpatient provider(s): Hospital Medicine [place] Team, pager [phone] For questions regarding issues relating to your hospitalization on the Hospital Medicine Service, please contact your inpatient physician through the [facility] Manager Personal [phone]. Issues after hours and on weekends will be handled by the Hospitalist staff on-call. Your Primary Care Provider Jerzy Vidal MD [phone] General Instructions HEART FAILURE ACTION PLAN For people who had congestive heart failure during hospitalization and need measures to reduce riskof recurrence. Not intended for people with advanced cirrhosis, ESRD, or major difficulty obtainingaccurate standing scale weights. Please weigh yourself first thing when you get home. Let us know if you do not have a scale that works. This will be your GOAL WEIGHT for the next 4 weeks. You may need to adjust your medication to stay within the safety range of 2 pounds above or below your GOAL WEIGHT. You GOAL WEIGHT is your weight without extra fluid on board. That is why you need to check your weight in the morning after using the bathroom, and before you eat or drink anything. Check your weight around the same time every day (Example: every morning at 7am). Each time you weigh yourself, write it down in the table below, or on a calendar. It is important to keep a written log of your weights. Also write down your DOSE of Lasix/Furosemide) that you will take that day. This is your water pill. Doctors also call this a diuretic. Date Weight (Pounds=lbs) Dose (Milligrams=mg) Diuretics (water pills) help keep you at your goal weight. They work by getting rid of the extra fluid that builds up in your body. ??? Sometimes you will need to take more diuretic medication if you have too much fluid. When you have too much fluid, your weight is higher, and you may notice your feet swelling, trouble breathing,or lying down flat. ??? Other times you might need to take less diuretic medication, or not take it for a day or so, ifyou are losing too much fluid. When you are dehydrated your weight is lower. You may feel weak, dizzy or unwell. That is why weighing yourself every day is VERY important! If you are having difficulty with weights, not feeling well, or major symptoms please call your primary care provider right away. Some heartsymptoms include fatigue, shortness of breath, swelling in legs or abdomen. If you are within safety range of your GOAL WEIGHT then continue your Lasix/Furosemide 80 mg / one time per day. If your weight is above the safety range of your GOAL WEIGHT, then DOUBLE your dose to 160 mg/ one time per day. You can go back to your original dose if you get back to your GOAL WEIGHT. Conversely, if your weight goes down below the safety range of your GOAL WEIGHT, then halve your dose to 40 mg/ one time per day. You can go back to your original dose if you get back to your GOAL WEIGHT. It will take a little time to get used to these instructions but our medical assistants will call you several times over the next 4 weeks to check in on how you are doing. Please let your primary care office or Dr. Schneider know if you have to change your diuretic dose. Ifyou ever get into the situation where these diuretic changes are not enough, then your primary careprovider may make further adjustments or even refer you to [facility]'s IV diuresis clinic. Your outside doctors can also help advise you if your GOAL WEIGHT should change in a month. You may need to call 911 if you develop severe, suddenly worsening symptoms. SALT (Sodium or Na) If a person eats or drinks foods with a lot of salt (also called sodium) it can make them keep morefluid in their bodies. This makes your heart work harder, increase your blood pressure and increases your weight. Please try to eat and drink less than 2 grams (equals 2000 milligrams) of salt or sodium each day. To do this, you will need to read food and drink labels and add up all the salt/sodium. As your hospital or primary care doctor if you want help with this. They can send you to see a assistant site manager (a person trained to help you with meal planning and healthy food choices) that can make mealplanning much easier. LIST OF COMMON HIGH SALT FOODS: Smoked, cured, salted or canned meat, fish or poultry including thakkar, cold cuts, ham, frankfurters, sausage, sardines, and anchovies. Frozen breaded meats and dinners, such as burritos and pizza. Canned entrees, such as ravioli, spam and chili. Salted nuts. Many salad dressings Beans canned with salt added. Future Appointments and Orders Future Appointments and Orders Future Appointments Provider Department Dept Phone 11/19/2022 1:00 PM Ciara Pitts APRN; Shon Schneider MD Hematology/Oncology at [facility] Arrive at: [facility] door at end of hallway [phone] 11/19/2022 1:30 PM [facility] INFUSION, ROOM Hematology Oncology at [facility] Arrive at: [facility] door at end of hallway [phone] 12/10/2022 1:00 PM Ciara Pitts APRN; Shon Schneider MD Hematology/Oncology at [facility] Arrive at: [facility] door at end of hallway [phone] 12/10/2022 1:30 PM [facility] INFUSION, ROOM Hematology Oncology at [facility] Arrive at: [facility] door at end of hallway [phone] Future Orders Complete By Expires Referral to Home Health [REF34 Custom] As directed Process Instructions: If no progress note charted, please enter Clinical details in comments. Scheduling Instructions: Comments: Please evaluate Brayan Jaramillo for admission to Home Health. [address] [id number] (home) Date of : 1955 DOCUMENTATION FOR VNA SERVICES (INCLUDING THOSE PATIENTS WITH MEDICARE COVERAGE REQUIRING HOME VNA SERVICES AND/OR HOSPICE SERVICES) PATIENT'S LOCATION: Brayan Jaramillo [address] [phone] (home) Track Repair Supervisor's Name: Patient In discussion with the attending physician, it is certified that this patient is under their care and that they, or a Nurse Practitioner,Clinical Nurse specialist or Physician Order Entry Specialist who is working directly with them, had a face to face encounter that meets the physician face to face encounter requirements with this patient on 11/05/22. The encounter with the patient was in whole, or in part, for the following medical condition, whichis the primary reason for home health care services: Assess medication tolerance, weight assessment, assist with resumption to baseline level of functioning. In discussion with the provider, it is certified that, based on their findings, the following services are medically necessary for home health services. To provide the following care/treatments with the clinical findings supporting the need for services as follows: Assess medication tolerance, weight assessment, assist with resumption to baseline level of functioning. HOME CARE ORDERS: RN ORDERS: Assess wound or incision, vital signs, cardiopulmonary status, nutrition, hydration, elimination, meds effectiveness and management; reinforce education re health issues Assess medication tolerance, weight assessment, assist with resumption to baseline level of functioning. PT ORDERS: Continue rehab for endurance, gait stability and strength with mobility and transfers. Home safety evaluation. Home exercise program if appropriate. OT: assess and continue rehab for managing ADL's. [facility] [address] [place] [id number] Start of care: 24-48 hours after discharge FOR MEDICARE ONLY: In discussion with the attending physician, it is certified that the clinical findings support thatthis patient is homebound because absences from home require considerable and taxing effort due to:Medically contraindicated due to immunosuppression and increased risk of infection Unable to ambulate community surfaces or distances unassisted due to pain, LE weakness or decreasedbalance and risk for falls Unsteady Gait, poor balance , requiring assistive devices and/or assistance of another Please note that any additional orders needs or changes will need to be obtained from this patient's PCP: Jerzy Vidal MD [address] [place] [address] / [facility] [id number] All A agencies which cover the area of patient's residence have been reviewed, either verbally richie writing, and patient/family have chosen the home health care agency noted Questions: Disciplines Requested: Nursing Physical Therapy Occupational Therapy Provider Contact Information: Jerzy Vidal MD [address] [place] [address] / [place] [address] Discharge References/Attachments None Dennise Peres MD 11/07/22 documented in this encounter Discharge Instructions * Discharge Instructions* Dennise Peres MD - 11/07/2022 9:16 AM EDT HEART FAILURE ACTION PLAN For people who had congestive heart failure during hospitalization and need measures to reduce riskof recurrence. Not intended for people with advanced cirrhosis, ESRD, or major difficulty obtainingaccurate standing scale weights. Please weigh yourself first thing when you get home. Let us know if you do not have a scale that works. This will be your GOAL WEIGHT for the next 4 weeks. You may need to adjust your medication to stay within the safety range of 2 pounds above or below your GOAL WEIGHT. You GOAL WEIGHT is your weight without extra fluid on board. That is why you need to check your weight in the morning after using the bathroom, and before you eat or drink anything. Check your weight around the same time every day (Example: every morning at 7am). Each time you weigh yourself, write it down in the table below, or on a calendar. It is important to keep a written log of your weights. Also write down your DOSE of Lasix/Furosemide) that you will take that day. This is your water pill. Doctors also call this a diuretic. Date Weight (Pounds=lbs) Dose (Milligrams=mg) Diuretics (water pills) help keep you at your goal weight. They work by getting rid of the extra fluid that builds up in your body. Sometimes you will need to take more diuretic medication if you have too much fluid. When you have too much fluid, your weight is higher, and you may notice your feet swelling, trouble breathing, or lying down flat. Other times you might need to take less diuretic medication, or not take it for a day or so, if youare losing too much fluid. When you are dehydrated your weight is lower. You may feel weak, dizzy or unwell. That is why weighing yourself every day is VERY important! If you are having difficulty with weights, not feeling well, or major symptoms please call your primary care provider right away. Some heartsymptoms include fatigue, shortness of breath, swelling in legs or abdomen. If you are within safety range of your GOAL WEIGHT then continue your Lasix/Furosemide 80 mg / one time per day. If your weight is above the safety range of your GOAL WEIGHT, then DOUBLE your dose to 160 mg/ one time per day. You can go back to your original dose if you get back to your GOAL WEIGHT. Conversely, if your weight goes down below the safety range of your GOAL WEIGHT, then halve your dose to 40 mg/ one time per day. You can go back to your original dose if you get back to your GOAL WEIGHT. It will take a little time to get used to these instructions but our medical assistants will call you several times over the next 4 weeks to check in on how you are doing. Please let your primary care office or Dr. Schneider know if you have to change your diuretic dose. Ifyou ever get into the situation where these diuretic changes are not enough, then your primary careprovider may make further adjustments or even refer you to [facility]'s IV diuresis clinic. Your outside doctors can also help advise you if your GOAL WEIGHT should change in a month. You may need to call 911 if you develop severe, suddenly worsening symptoms. SALT (Sodium or Na) If a person eats or drinks foods with a lot of salt (also called sodium) it can make them keep morefluid in their bodies. This makes your heart work harder, increase your blood pressure and increases your weight. Please try to eat and drink less than 2 grams (equals 2000 milligrams) of salt or sodium each day. To do this, you will need to read food and drink labels and add up all the salt/sodium. As your hospital or primary care doctor if you want help with this. They can send you to see a assistant site manager (a person trained to help you with meal planning and healthy food choices) that can make mealplanning much easier. LIST OF COMMON HIGH SALT FOODS: Smoked, cured, salted or canned meat, fish or poultry including thakkar, cold cuts, ham, frankfurters, sausage, sardines, and anchovies. Frozen breaded meats and dinners, such as burritos and pizza. Canned entrees, such as ravioli, spam and chili. Salted nuts. Many salad dressings Beans canned with salt added. * Patient Instructions* Dennise Peres MD - 11/07/2022 9:20 AM EDT Patient Instructions on Discharge to Home Why you were hospitalized - you were hospitalized with low platelets, which recovered following treatment with steroids. While you were here, you were found to have heart failure due to severe aorticstenosis, which you have elected to treat with a TAVR. We removed over 20 pounds of fluid. When yougo home it will be very important to weigh yourself every day and to adjust your diuretic dose if your weight fluctuates too much (see instructions below). Call your doctor or seek medical attention if you develop the following - chest pain, shortness of breath, feeling dizzy upon standing, passing out, diarrhea, constipation lasting longer than 2 days,fevers (temperature over 100.3), chills, abdominal pain, vomiting, difficulty or discomfort when urinating, bloody or black bowel movements, or any other acute or concerning symptom. Activity level - No restrictions Diet - Please limit your sodium intake to around 2000 mg per day to prevent too much fluid from reaccumulating. Driving - No restrictions Shower/Bath - No restrictions Changes in Your Medications: New Medications: Triamcinolone cream: you can apply this to your legs to help them heal. Changes in your medications: 1. Your dose of Diltiazem (Cardizem) was decreased to 180 mg daily 2. You should take 80 mg Lasix every day, unless your weight fluctuates too much. See instructions below. Follow-up Appointments Future Appointments Date Time Provider Department Center 11/19/2022 1:00 PM Shon Schneider MD [facility] 11/19/2022 1:30 PM [facility], ROOM [facility] 12/10/2022 1:00 PM Shon Schneider MD [facility] 12/10/2022 1:30 PM [facility], ROOM [facility] You should expect to hear from the schedulers in the Cardiology department regarding next steps randell SAAVEDRA. If you do not hear from them within one week, you can call [phone] and ask to speakwith Dr. Saji Sultana's schedulers. Your Inpatient Medical Team at [facility] Name(s) of your inpatient provider(s): Hospital Medicine [place] Team, pager [phone] For questions regarding issues relating to your hospitalization on the Hospital Medicine Service, please contact your inpatient physician through the [facility] Manager Personal [phone]. Issues after hours and on weekends will be handled by the Hospitalist staff on-call. Your Primary Care Provider Jerzy Vidal MD [phone] documented in this encounter Medications at Time [...] 1 tablet by mouth daily. furosemide (Lasix) 80 mg tablet Take 1 tablet by mouth daily. 60 tablet 3 11/07/2022 01/20/2023 triamcinolone (Kenalog) 0.1 % Cream Apply topically 2 times daily. 30 g 11/07/2022 06/24/2023 lidocaine (Lidoderm) 5% Adhesive Patch, Medicated Apply 1 patch onto the skin daily. (leave on for 12 hours and remove for 12 hours) 30 patch 11/07/2022 11/19/2022 aMILoride (Midamor) 5 mg tabletIndications:Thym ic carcinoma,Hypomagnesem [...] as of this encounter Progress Notes * Saul Garcia MD - 11/07/2022 12:09 PM EDT Hospital Medicine - Attending Day of Discharge Documentation Discharge diagnosis Active Hospital Problems Diagnosis ??? Platelet disorder Resolved Hospital Problems No resolved problems to display. Secondary Issues Active Non-Hospital Problems Diagnosis ??? Abnormal uterine bleeding ??? Pancytopenia ??? Atrial fibrillation ??? Essential hypertension ??? Hypothyroidism ??? Thymic carcinoma I have personally seen and examined the patient and they are ready for discharge. I spent >30 minutes (Day of Discharge Code 23102) involved in the final examination of the patient, discussion of the hospital stay, instructions for continuing care to all relevant caregivers, and preparation of discharge records, prescriptions and referral forms. Plans ? Discharge to home ? Please see the Discharge Summary for complete details of any medication changes and additional plans. SAUL GARCIA MD 11/07/2022 * Shelby Blackmon RN - 11/07/2022 6:38 AM EDT OUTCOME EVALUATION NOTE: OUTCOME SUMMARY: Pt AOX 4,NO SOB OR CHEST PAIN NIOTED.Presently on room air.Pt to be discharge today accompanied by daughter PLAN MOVING FORWARD: Monitor sob and weight gain Manage left knee pain with meds and follow up appts Discharge planning to home with daughter and orders INDIVIDUALIZED FALL PREVENTION INTERVENTIONS: Patient-specific fall risk factors per assessment: [current deficits Left knee pain on ambulation Assistance [level of assistance required for transfers and ambulation]: Pt up with walker She.Needsassist with all ADLS Supervision [direct monitoring required during toileting and ADLs] Ambulate with walker sba Surveillance [continuous indirect monitoring]: trevor Patient-specific fall prevention interventions for sensory deficits provided, if applicable: CPG GOAL OUTCOME EVALUATION: * Niru Archer RN - 11/06/2022 6:45 PM EDT Patient Summary Reason for admission: Hematemesis, low H/H, and platelets, Relevant PMH: Thymic cancer, Afib, on elaquis, Hypothyroidism, depression, anxiety Significant 24 hour events: 11/06 AM: Patient is A/Ox4. Ambulating to toilet with FWW and 1 person assist. Potassium replacementcompleted. Loose stools today, stool softeners held. Patient resting in between care. For dischargetomorrow AM. Action List Wound care BLE Q 3 days (last done 11/04) Encourage ambulation * Nguyen Mckeon - 11/06/2022 4:24 PM EDT Nutrition Services Note - Low Nutrition Acuity Brayan Jaramillo is a 67 y.o. female Reason for intervention: follow up Nutrition Plan: Continue diet order Monitor good PO Lasix Kiwi allergy Continue daily snack & drink Monitor weight Patient scheduled for a follow up nutrition evaluation. Chart reviewed. Per documentation patient has excellent PO intakes recorded at 100% over the past 4 days. According to dining services softwarethey have ordered an average ~2476kcals/day within the same duration. Kitchen to continue to send desired food selections including baked lays chips 1x/day and apple juice or francine hal 1x/day. Weight loss observed per graph, not clinically significant d/t diuretic. Please update and trend wts to allow for ongoing assessment of weight changes. Clinical Nutrition to monitor and follow. Active Orders Diet Regular diet Frequency: Effective Now Number of Occurrences: Until Specified Admit Weight: 110.2 kg Estimated body mass index is 30.47 kg/m?? as calculated from the following: Height as of 11/05/22: 172.7 cm (5' 8). Weight as of this encounter: 90.9 kg (200 lb 6.4 oz). Wt Readings from Last 5 Encounters: 11/06/22 90.9 kg (200 lb 6.4 oz) 11/05/22 92.9 kg (204 lb 12.9 oz) 11/05/22 92.9 kg (204 lb 12.9 oz) 10/08/22 107.5 kg (237 lb) 09/16/22 110.3 kg (243 lb 3.2 oz) *The following information was obtained via pt chart* Weight loss: not clinically significant Appetite: excellent 100% Food allergies:kiwi Chewing/Swallowing difficulty: none Nausea/Vomiting: no nausea and no vomiting Last Bowel Movement: 11/06/22 Nguyen Mckeon Chief Recordist * Daniel Green MD - 11/06/2022 2:52 PM EDT Hospital Medicine Progress Note Admit Date: 10/22/2022 Hospital Day 15 days Patient ID: Brayan Jaramillo is a 67 y.o. 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 Now with new persistent O2 requirement and newly discovered severe . Interval events: - NAEO - CT for TAVR planning done yesterday - no complaints Physical Exam: Last Set of Vitals and range of vitals over past 24 hours: Last value Range last 24 hrs Temperature Temp: 36.3 ??C (97.3 ??F) Temp: [36.3 ??C (97.3 ??F)-37.4 ??C (99.3 ??F)] Heart Rate Heart Rate: 79 Heart Rate: [74-84] Blood Pressure BP: 98/60 BP: (96-99)/(58-60) Respiratory Rate Resp: 18 Resp: [16-18] SpO2 SpO2: 96 % SpO2: [91 %-98 %] Physical Exam Gen: NAD. A&Ox4. Sitting up in bed. HEENT: NC/AT, no scleral icterus. Several teeth missing (side effect of chemo per pt) CV: Irregularly irregular rhythm. Normal rate. 3/6 murmur best appreciated over LUSB. Pulm: no increased WOB on 2L NC Abd: Nondistended, nontender. Reducible umbilical hernia present Ext: Minimal edema in lower legs & thighs today, significantly improved from prior exams Neuro: alert and appropriate. Non-focal. Grossly intact. Psych: cooperative, calm, pleasant Laboratory (Last 24 Hours): Last 3 wbc, hgb, hct plt Recent Labs 11/06/22 0419 11/05/22 0310 11/04/22 0258 WBC 9.4 10.2* 8.6 HGB 7.8* 8.0* 6.8* HCT 25.4* 25.1* 22.3* PLATELET 207 188 155 Last 3 Lytes Recent Labs 11/06/22 04111/05/22 0310 11/04/22 0258 NA 132* 135 135 K 3.0* 3.1* 3.6 CL 93* 92* 90* CO2 31 38* 42* BUN 13 16 14 CREATININE 0.84 0.92 0.76 Last 3 LFTs Recent Labs 10/22/22 2310 AST 23 ALT 6 ALKPHOS 49 BILITOT 1.5* BILIDIR 0.7* Last Ca, Mg, Phos Recent Labs 11/06/22418 CALCIUM 8.7 MAGNESIUM 0.77 Microbiology: No pertinent positives Radiology: CT Cardiac for Morphology & Function Final Result Pre-TAVR measurements as above. 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 Moderate to large pleural effusion on the right and small to moderate pleural effusion on the left. Associated partial compression atelectasis of the bilateral lower lobes. Right-sided port catheter ends at the most cranial aspect of the SVC. Biatrial enlargement of the heart. Thank you for letting us participate in the care of this patient. If you are a health care provider and have any questions regarding this report, please contact the number below. For patients who have questions please contact the health foster care worker that requested your imaging first. Electronically signed by: Yuki Alaniz MD, [facility] ([phone]), at 11/06/2022 8:32 AM IR Thoracentesis Right Final Result XR Chest PA & Lateral (Generic) Final Result No decrease in size of right pleural effusion with size intrafissural components. Stable smaller left pleural effusion. No pneumothorax. Thank you for letting us participate in the care of this patient. If you are a health care provider and have any questions regarding this report, please contact the number below. For patients who have questions please contact the health foster care worker that requested your imaging first. Electronically signed by: Saul Plunkett MD, [facility] ([phone]), at 11/01/2022 1:36 PM IR Thoracentesis Right Final Result XR Chest One View Final Result 1. Unchanged moderate right and small left pleural effusions. 2. Persistent mild pulmonary vascular congestion. 3. The bilateral lower lobe opacities are nonspecific and likely represent a combination of effusion and atelectasis however a component of pneumonia is difficult to exclude particularly at the right lung base. Thank you for letting us participate in the care of this patient. If you are a health care provider and have any questions regarding this report, please contact the number below. For patients who have questions please contact the health foster care worker that requested your imaging first. Electronically signed by: Saul Lemus MD, [facility] ([phone]), at 10/26/2022 12:[address] Angiogram Abdomen & Pelvis w Contrast (Generic) (Results Pending) 10/28 R pleural fluid (750cc drained) Fluid/serum LDH 0.44 (transudative) Fluid/serum protein 0.47 (transudative) LDH is 0.62 of upper limit of normal (transudative) 11/02 R pleural fluid (1L drained) Fluid/serum LDH 0.62 (exudative) Fluid/serum protein 0.51 (exudative) LDH is 0.81 of upper limit of normal (exudative) Other Studies: TTE 10/26/22: Interpretation Summary There is severe aortic stenosis. [...] pericardial effusion. See report for additional findings. Assessment: Brayan Jaramillo is a 67 y.o. 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 ?? 11/06: After discussion yesterday with Dr. Osei, pt would like to proceed with TAVR if it is offered. CT scans for surgical planning were able to be completed. She remains on RA and feels well. Anticipate discharge tomorrow morning when daughter can provide ride home. Plan to discharge home on 40PO lasix daily per cardiology recs. PLAN: #Newly discovered severe aortic stenosis #Acute hypoxic respiratory failure secondary to pulmonary edema, pleural effusions, atelectasis, improving #Anasarca possibly 2/2 prior chemotherapy meds - 10/22 CT chest & CXR from [facility] bilateral pleural effusions, and atelectasis - 10/26 TTE with severe - 10/28 R thoracentesis with 750cc removed, transudative - 11/02 R thoracentesis with 1L removed, exudative - now on RA - continue PO lasix + acetazolamide - CT for TAVR planning done - appreciate cards recs #atrial fibrillation - continue Diltiazem 180 mg qd (dose reduced from home 240 mg qd) - continue home Eliquis #Severe thrombocytopenia 2/2 ITP, resolved #Hematemesis vs hemoptysis, resolved #Anemia, acute on chronic - appreciate heme onc assistance - s/p dexamethasone 40 mg qd for 4 days (10/23-10/26) - resume home apixaban (for A fib) - once daily PO PPI #KALEIGH, likely cardiorenal, resolved - avoid nephrotoxins - continue to trend Cr - encourage PO intake?? #Contraction alkalosis 2/2 aggressive diuresis #Hypokalemia 2/2 aggressive diuresis - K repletion as needed - continue to monitor BMP, lytes ?? #Home medications - continue home levothyroxine - continue home paroxetine 20 mg ?? Routine Diet: Regular diet DVT: Eliquis 5 BID GI: PPI daily Dispo: pending clinical course CODE: Attempt Cardiopulmonary Resuscitation - Inpatient Daniel Green MD 11/06/2022 [facility] Medicine [place] Team Pager [phone] Associated attestation - Saul Garcia MD - 11/06/2022 5:31 PM EDT Attending Attestation and Certification Please see Daniel Green MD's note for details of the patient history of presentation and data. I have discussed, reviewed and agree with the documented History, Physical findings, Assessment and Plan of care. I have examined the patient myself and personally reviewed all studies. In addition, I certify thatI am a D-H credentialed attending provider with admitting privileges and that the patient meets or has met medical necessity to require an inpatient IPI level of care meeting a minimum of two midnights or is on the CMS inpatient only procedure list (status C) due to: the patient has met Inpatient IPI criteria and is awaiting appropriate safe discharge logistics. SAUL GARCIA MD 11/06/2022 * Mariah Maradiaga RN - 11/06/2022 1:58 PM EDT Asked to follow up with patient for discharge needs by medical team. Plan for discharge tomorrow morning at 10am. RNCM notified [facility] to get SOC date. RNCM will continue to follow and assist with discharge planning. * Niru Archer RN - 11/05/2022 6:25 PM EDT Patient Summary Reason for admission: Hematemesis, low H/H, and platelets, Relevant PMH: Thymic cancer, Afib, on elaquis, Hypothyroidism, depression, anxiety Significant 24 hour events: 11/05 AM: Patient is A/Ox4. Ambulating to toilet with FWW and 1 person assist. CTA abdomen/pelvis and CT cardiac morph/function completed. Mediport de- accessed. Vascular in to start 18g to right AC. Patient resting in between care. For possible discharge tomorrow. Action List Wound care BLE Q 3 days (last done 11/04) Encourage ambulation * Lady Woods RN - 11/05/2022 12:34 PM EDT Per MD, tentative plan for discharge on 11/08. CM to continue to assist with discharge planning. Lady Woods RN [facility] Lens Matcher/Medicine Office of Care Management Pager: [phone] * Daniel Green MD - 11/05/2022 11:14 AM EDT [facility] Medicine Progress Note Admit Date: 10/22/2022 Hospital Day 14 days Patient ID: Brayan Jaramillo is a 67 y.o. 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 Now with new persistent O2 requirement and newly discovered severe . Interval events: - NAEO - no complaints Physical Exam: Last Set of Vitals and range of vitals over past 24 hours: Last value Range last 24 hrs Temperature Temp: 37.2 ??C (99 ??F) Temp: [36.9 ??C (98.4 ??F)-37.4 ??C (99.3 ??F)] Heart Rate Heart Rate: 68 Heart Rate: [68] Blood Pressure BP: 102/55 BP: (102-107)/(55-64) Respiratory Rate Resp: 16 Resp: [15-16] SpO2 SpO2: 96 % SpO2: [91 %-96 %] Physical Exam Gen: NAD. A&Ox4. Sitting up in bed. HEENT: NC/AT, no scleral icterus. Several teeth missing (side effect of chemo per pt) CV: Irregularly irregular rhythm. Normal rate. 3/6 murmur best appreciated over LUSB. Pulm: no increased WOB on 2L NC Abd: Nondistended, nontender. Reducible umbilical hernia present Ext: Minimal edema in lower legs & thighs today, significantly improved from prior exams Neuro: alert and appropriate. Non-focal. Grossly intact. Psych: cooperative, calm, pleasant Laboratory (Last 24 Hours): Last 3 wbc, hgb, hct plt Recent Labs 11/05/22 0310 11/04/22 0258 11/03/22 0253 WBC 10.2* 8.6 8.2 HGB 8.0* 6.8* 7.0* HCT 25.1* 22.3* 22.6* PLATELET 188 155 154 Last 3 Lytes Recent Labs 11/05/22 0310 11/04/22 0258 11/03/22 0253 NA 135 135 136 K 3.1* 3.6 3.8 CL 92* 90* 91* CO2 38* 42* 44* BUN 16 14 17 CREATININE 0.92 0.76 0.76 Last 3 LFTs Recent Labs 10/22/22 2310 AST 23 ALT 6 ALKPHOS 49 BILITOT 1.5* BILIDIR 0.7* Last Ca, Mg, Phos Recent Labs 11/05/22 031 CALCIUM 8.6 MAGNESIUM 0.73 Microbiology: No pertinent positives Radiology: IR Thoracentesis Right Final Result XR Chest PA & Lateral (Generic) Final Result No decrease in size of right pleural effusion with size intrafissural components. Stable smaller left pleural effusion. No pneumothorax. Thank you for letting us participate in the care of this patient. If you are a health care provider and have any questions regarding this report, please contact the number below. For patients who have questions please contact the health foster care worker that requested your imaging first. Electronically signed by: Saul Plunkett MD, [facility] ([phone]), at 11/01/2022 1:36 PM IR Thoracentesis Right Final Result XR Chest One View Final Result 1. Unchanged moderate right and small left pleural effusions. 2. Persistent mild pulmonary vascular congestion. 3. The bilateral lower lobe opacities are nonspecific and likely represent a combination of effusion and atelectasis however a component of pneumonia is difficult to exclude particularly at the right lung base. Thank you for letting us participate in the care of this patient. If you are a health care provider and have any questions regarding this report, please contact the number below. For patients who have questions please contact the health foster care worker that requested your imaging first. 10/28 R pleural fluid (750cc drained) Fluid/serum LDH 0.44 (transudative) Fluid/serum protein 0.47 (transudative) LDH is 0.62 of upper limit of normal (transudative) 11/02 R pleural fluid (1L drained) Fluid/serum LDH 0.62 (exudative) Fluid/serum protein 0.51 (exudative) LDH is 0.81 of upper limit of normal (exudative) Other Studies: TTE 10/26/22: Interpretation Summary There is severe aortic stenosis. [...] pericardial effusion. See report for additional findings. Assessment: Brayan Jaramillo is a 67 y.o. 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 ?? 5/26: At this point, most active issue is decision about valve replacement or not. Plan for a meeting this morning with Dr. Ave Osei from cardiology to discuss options, risks, benefits. Pending decision, pt may be ready for discharge. She is off O2. Platelets stable. Continue acetazolamide andoral lasix. PLAN: #Newly discovered severe aortic stenosis #Acute hypoxic respiratory failure secondary to pulmonary edema, pleural effusions, atelectasis, improving #Anasarca possibly 2/2 prior chemotherapy meds - 10/22 CT chest & CXR from [facility] bilateral pleural effusions, and atelectasis - 10/26 TTE with severe - 10/28 R thoracentesis with 750cc removed, transudative - 11/02 R thoracentesis with 1L removed, exudative - continue supplemental oxygen - continue PO lasix + acetazolamide - meeting with Dr. Osei today - appreciate cards recs #atrial fibrillation - continue Diltiazem 180 mg qd (dose reduced from home 240 mg qd) - continue home Eliquis #Severe thrombocytopenia 2/2 ITP, resolved #Hematemesis vs hemoptysis, resolved #Anemia, acute on chronic - appreciate heme onc assistance - s/p dexamethasone 40 mg qd for 4 days (10/23-10/26) - resume home apixaban (for A fib) - once daily PO PPI #K[place]IGH, likely cardiorenal, resolved - avoid nephrotoxins - continue to trend Cr - encourage PO intake?? #Contraction alkalosis 2/2 aggressive diuresis #Hypokalemia 2/2 aggressive diuresis - K repletion as needed - continue to monitor BMP, lytes ?? #Home medications - continue home levothyroxine - continue home paroxetine 20 mg ?? Routine Diet: Regular diet DVT: Eliquis 5 BID GI: PPI daily Dispo: pending clinical course CODE: Attempt Cardiopulmonary Resuscitation - Inpatient Daniel Green MD 11/05/2022 [facility] Medicine [place] Team Pager [phone] Associated attestation - Douglas Escobedo MD - 11/05/2022 2:55 PM EDT Attending Attestation and Certification Please see Daniel Green MD's note for details of the patient history of presentation and data. I have discussed, reviewed and agree with the documented History, Physical findings, Assessment and Plan of care. Continued adjustment of diuretic dose and monitoring of volume status. Discussed with cardiology and they recommend outpt dose of 40mg lasix daily, no need for acetazolamide given her improved resp status and volume. Structural heart consulted and leaning towards possible TAVR. Requested CT studiesas part of work-up. Will attempt to obtain those before discharging tomorrow morning. I have examined the patient myself and personally reviewed all studies. In addition, I certify thatI am a [facility] credentialed attending provider with admitting privileges and that the patient meets or has met medical necessity to require an inpatient IPI level of care meeting a minimum of two midnights or is on the [facility] inpatient only procedure list (status C) due to: monitoring of fluid status given an inability to regulate fluid balance and the need for administration or restriction of fluids * Mina Chavez, OT - 11/05/2022 9:51 AM EDT Occupational Therapy Treatment Note Treatment Number OT: 4 Patient Dx:??Per note,??Brayan Jaramillo??is a 67 y.o.?female??admitted on 10/22/2022??w/ PMH of 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 ?? 10/28/22 thoracentesis yesterday with 750mL removed from R side Social History:?? Home Setup:??pt lives with her son, son's SO, and 2 grandchildren. Ramp to enter single level home.Bathroom has a claw foot tub, however she plans to have the bathroom renovated with a walk-in shower- uncertain of timeline in which this is to be completed Functional Status:??independent with most ADLs and sponge bathes at baseline- does not use claw foot tub. She ambulates with a 4WW indoors and uses a manual w/c outdoors, although daughter reports she will occasionally use w/c indoors as well.??She cleans and prepares simple meals. Has groceries delivered. 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 Precautions/Special Considerations: fall risk, full code; port, AAT, low platelets, BLE wounds, riley, supplemental O2 (2 L) Interval History: 11/02 thoracentesis; cardiology consult 12/05 with S: I am just so tired. No I won't stand. O: Patient seen for skilled OT treatment, and demonstrated the following in collaboration with PT: ?? Self-care: ?? Pt needing Min A to don brace. ?? Pt donned pants with licensed audiologist Min A for stand-hike. ?? Pt does not wear socks at home and declined need for socks. ?? Difficulty comprehending steps to don knee brace. ?? Decreased insight to need for supervision. ?? Issued long handled sponge with instruction. ?? Issued long handled shoe horn with introduction. ?? Pt reports having a few reachers at home. ?? Functional Mobility: ?? Sit to stand: SBA/CTG A ?? Functional mobility: Bed to chair CTG A with FWW ?? Stand to sit: CTG A ?? Cognition: ?? Behavior / Mood: alert, cooperative and lethargic ?? Alert and oriented to: person, place, date, month and year ?? Follows commands: 100% of the time ?? Attention: requires cues to redirect ?? Safety awareness: minimal cues for safety ?? Delay with following commands and having difficult time comprehending steps to don knee brace. ?? Endurance:Fair ?? Vitals: 74 bpm and 93% Pain: Pt reports minimal discomfort more fatigue Education: Pt/family/caregiver education ongoing regarding: Role of occupational therapy/rehabilitation, Transfers, Assistive device/technique, Adaptive equipment training, ADL, Safety, Functional Mobility, Balance, Recommendations and Discharge planning. Staff Communication: Patient status, treatment, and mobility recommendations discussed with nursing/other staff. ASSESSMENT: Pt seen by OT for progress with POC. Pt needing CTG A to SBA for standing ADLS and mobility today due to being somewhat fatigued. Pt will benefit from supervision initially at d/c home and patient has needed assistance for IADLS. Pt with more lethargy today and less willing to participate in mobility due to fatigue. Pt will benefit from ongoing therapeutic interventions to achieve pt's and therapy goals Anticipated Discharge Disposition (OT): swing bed rehabilitation facility, home with supervision, home with home health OT/PT Equipment Recommendations: Equipment Needs Upon Discharge (OT): walker, four wheeled / rollator Daily schedule / Staff Recommendations: ??? Staff Recommendations: ??? Utilize upright chair position using bed features or transfer to recliner chair as appropriate with??CTG A??and FWW, ambulate as tolerated??3x/day ??? Bathroom for toileting needs ??? Please encourage up to chair or seated EOB for meal times as able ??? Encourage participation in ADL's by providing set up A on tray table and physical assist only as needed ? ? Frequent orientation verbally & visually ? ? Promote normalcy by encouraging participation in common daily tasks & leisure activities byproviding set up assist ? ? Encourage use of coping & calming strategies ??? Give choices when possible to support feelings of autonomy ??? Keep glasses, hearing aides, cell phones, tablets, etc within reach ??? Facilitate a normal sleep-wake cycle ??? Provide brief, clear instruction from one source at a time ??? Reduce extraneous stimulation ??? Provide calming music, favorite TV programs, magazines or newspapers To be achieved by??11/09/2022 (Progressing): Pt will perform all functional??mobility??with supervision??and assistive device as needed. Pt will stand at sink level with??supervision??for >2??minutes for ADLs. Pt will complete??seated/standing sponge bathing with supervision. Pt will complete LB dressing with??supervision??and AE as needed. Pt will complete all aspects of toilet routine (transfer, hygiene, clothing management) with??supervision. Pt will integrate a coping strategy for anxiety management with??min??verbal cues. ?? 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 Interval History: NAEO Social History: Home set-up: Lives??with son, DIL, and 2 grandchildren in a single level home in [place], [place] Stairs:??Ramp to enter Bathroom Set-up:??Clawfoot tub, has been sponge bathing due to difficulty getting in/out of the tub. Plans to get bathroom renovated to have a walk-in shower Baseline Mobility:??Ambulates with a 4WW inside and a w/c outside or when fatigued (typically dependently pushed with the w/c). Independent with most I/ADLs, including cleaning, and simple meals. Family assists with laundry, checking the mail, and running errands. Doesn't wear O2 at baseline. Equipment at home:??4WW, manual w/c, licensed audiologist Fall history:??Denies?? Precautions/Special Considerations: Full Code, High risk for skin breakdown, At risk to Fall, Low Platelets, BLE wounds Lines: Nikhil, PIV, Supplemental Oxygen,??Implanted port Activity Orders:??Activity as tolerated?? Diet:??Regular Diet Mobility and Positioning Recommendations: ?? Pt to utilize 1 assist and FWW for ambulation and transfers w/ staffing analyst as able ?? Pt encouraged to ambulate to BR for voiding. ?? Please encourage up to chair for meal times as able. Subjective: I just want to go home. Realistically someone won't be with me all the time Objective: Patient seen for physical therapy and demonstrated the following: Pain: Pt reported increased pain in L knee, did not rate, did not limit participation w/ therapy Vital Signs: VSS throughout session on RA Cognition/Vision: Pt was alert and cooperative w/ therapy Bed Mobility: Supine to Sit: N/A, session started w/ pt sitting on EOB, leaning over tray table Sit to Supine: N/A, session ended w/ pt in recliner chair Transfers: Sit to Stand: supervised, contact guard assist, Performed 2x from EOB, increased time and effort tostand fully upright, no LOB noted using rolling walker Stand to Sit: contact guard assist, fair eccentric control using rolling walker Bed to chair: Performed from EOB to recliner chair towards pts L side, increased time and effort, decreased foot clearance, gait speed and step length, no LOB noted, required cues for AD management Gait: Performed stand step transfer to chair, no further ambulation performed Stairs: N/A Balance: Sitting Static: Good Sitting Dynamic: Fair, pt required increased time and effort to don pant (see OT note for details),maintain balance. Standing Static: Fair w/ FWW Standing Dynamic / Gait: Fair w/ FWW Education: Pt educated on importance of continued participation w/ therapy and mobilization OOB, transfer training, gait training, energy conservation, therex Provided pt w/ L knee brace to assist w/ discomfort. Donned dependently by therapist initially. Pt demonstrated doffing/donning w/ minAx1 and max cues Pt left in bedside recliner chair, with all needs met and with call wallace in reach RN aware following visit. Assessment: Brayan Jaramillo was seen today for physical therapy treatment session for continuation of POC. Pt presented to PT very lethargic, appeared to be sleeping on her tray table, but was easilyarousable. Pt required increased time and effort to dress and mobilize. Pt was upset, stating her frustration w/ not being home yet. Pt was provided w/ a brace to assist w/ her L knee pain, however will need assistance at home to don and doff it initially. Pt would benefit from a swing rehab, however she has denied this, stating she just wants to be home. As such, she will need VNA PT and would benefit from a family member staying w/ her initially to ensure she can mobilize safely. Pt will benefit from ongoing therapeutic interventions to achieve therapy goals. Discharge Recommendations: Based on the current findings, Anticipated Discharge Disposition (PT): swing bed rehabilitation facility, home with home health when medically ready for hospital discharge. Consult Recommendations: No other consults recommended at this time. Equipment needs: Anticipated Equipment Needs at Discharge (PT): to be determined Physical Therapy Goals: To be achieved by??11/19/2022: Ongoing ?? 1. Pt. to demonstrate knowledge of safety limitations and precautions and will appropriately request assistance for functional activities and to mobilize. 2. Pt. to demonstrate understanding of appropriate therapeutic exercises. 3. Pt. to perform bed mobility??with supervision??with HOB flat. 4. Pt. to perform??sit<>stand??transfers with modified independence??using a front wheeled walker. ?? 5. Pt. to ambulate??75??feet with modified independence??using a front wheeled walker. 6. Pt to propel wheelchair x??50??ft. using??BUE. 7. Pt will tolerate progression towards upright with stable vital signs. 8. Family or caregiver to demonstrate understanding of therapeutic interventions to support the care of the patient. Plan: Therapy Frequency (PT): 2-4 times/wk for therapy interventions as outlined in initial evaluation. Patient agrees with plan as stated. Time IN / OUT: 0260-6579 Total Minutes, Physical Therapy: 24 Billing Code: NATALIE 2 Senait Bhanu Baez PTA Pager: [phone] Physical Therapy Inpatient Rehabilitation Department * Randall Sethi, RN - 11/05/2022 8:36 AM EDT Patient Summary Reason for admission: Hematemesis, low H/H, and platelets, Relevant PMH: Thymic cancer, Afib, on elaquis, Hypothyroidism, depression, anxiety Significant 24 hour events: 11/04 PM: Legs remain edematous, reddened, and firm. Hernia (mass) noted on ~ upper midline abdomen,otherwise distended and firm but non tender. Patient voiding frequently in bathroom, patient reporting pain in R knee, tylenol administer per AUG. Patient resting intermittently overnight. Most recent weight: Weight: 92.9 kg (204 lb 14.4 oz) (11/05/22 0330) Action List Wound care BLE Q 3 days (last done 11/04) Encourage ambulation Cardiology Tests prior to DC? Discharge Plan: Home with VNA today? Consults: oncology, palliative PT [x] OT [x] MAGNETIC TESTER [] * Shady Urena MD - 11/05/2022 7:11 AM EDT Cardiology Consult Progress Note Admit Date: 10/22/2022 Interval events / Subjective: I/O net negative 650cc though no intake recorded from overnight shift. Bicard decreased to 38 today. Potassium noted lower at 3.1. No acute complaints of chest discomfort or dyspnea this morning, daughter is at bedside Patient Active Problem List Diagnosis ??? Platelet disorder ??? Abnormal uterine bleeding ??? Pancytopenia ??? Atrial fibrillation Treated with metoprolol, diltiazem, eliquist ??? Essential hypertension ??? 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 Thymic carcinoma Inpatient Meds: Scheduled Meds: ??? acetaZOLAMIDE 250 mg Oral BID ??? furosemide 40 mg Oral Daily ??? apixaban 5 mg Oral BID ??? dilTIAZem CD 180 mg Oral Daily ??? polyethylene glycoL (MIRALAX) oral powder 17 g Oral BID ??? senna-docusate 2 tablet Oral BID ??? melatonin 6 mg Oral Nightly ??? triamcinolone Topical (Top) BID ??? sodium chloride 0.9 % (flush) 5 mL Intravenous BID ??? levothyroxine 150 mcg Oral Daily ??? PARoxetine 20 mg Oral QAM Continuous Infusions: PRN Meds:.ondansetron, carboxymethylcellulose, sodium chloride, albuteroL, loratadine, sodium chloride 0.9 % (flush), lidocaine, acetaminophen Allergies: Allergies Allergen Reactions ??? Kiwi (Actinidia Chinensis) Itching and Other (See Comments) Mouth swelling ??? Carboplatin ??? Penicillins Hives ??? Pollen Extracts Other (See Comments) rhinorrhea Vitals: Last value Range last 24 hrs Temperature Temp: 37.1 ??C (98.8 ??F) Temp: [36.9 ??C (98.4 ??F)-37.4 ??C (99.3 ??F)] Heart Rate Heart Rate: 68 Heart Rate: [68-72] Blood Pressure BP: 104/60 BP: (102-113)/(59-66) Respiratory Rate Resp: 16 Resp: [15-16] SpO2 SpO2: 95 % SpO2: [91 %-99 %] I's and O's: Intake/Output Summary (Last 24 hours) at 11/05/2022 0711 Last data filed at 11/05/2022 0620 Gross per 24 hour Intake 695.33 ml Output 1350 ml Net -654.67 ml Weights: Patient Vitals for the past 168 hrs: Weight 11/05/22 0330 92.9 kg (204 lb 14.4 oz) 11/03/22 0733 92.9 kg (204 lb 12.9 oz) 11/02/22 0415 93.3 kg (205 lb 11 oz) 11/01/22 1001 93.3 kg (205 lb 11 oz) 10/31/22 0535 93.2 kg (205 lb 7.5 oz) 10/29/22 1210 99.2 kg (218 lb 11.1 oz) Examination: General: Pleasant female in no acute distress Cardiac: Regular rate, irregular rhythm, 3/6 systolic murmur. JVP elevated Respiratory: Faint bibasilar crackles Extremities: Warm, 3+ bilateral lower extremity edema with cracked skin Neuro: Alert and oriented Skin: Warm, dry Psych: Normal affect Labs: CBC: Recent Labs 11/05/22 0310 11/04/228 11/03/22 025 WBC 10.2* 8.6 8.2 HGB 8.0* 6.8* 7.0* PLATELET 188 155 154 Chemistry: Recent Labs 11/05/22 0310 11/04/22 0258 11/03/22 025 NA 135 135 136 K 3.1* 3.6 3.8 CL 92* 90* 91* CO2 38* 42* 44* BUN 16 14 17 CREATININE 0.92 0.76 0.76 GLUCOSE 114 118 127 Recent Labs 11/05/22 0310 11/04/22 0258 11/03/22 025 CALCIUM 8.6 8.3* 8.3* MAGNESIUM 0.73 0.80 0.84 LFT's: Recent Labs 10/22/22 2310 BILITOT 1.5* BILIDIR 0.7* ALBUMIN 2.6* ALKPHOS 49 ALT 6 AST 23 Coags: No results for input(s): PT, INR, PTT, FIBRINOGEN, DDIMER in the last 168 hours. Invalid input(s): THROMBIN TIME Cardiac enzymes: No results for input(s): TROPONINT, CK in the last 7068 hours. Transthoracic Echocardiogram 10/26: There is severe aortic stenosis. The mean [...] posterior pericardial effusion. See report for additional findings Assessment: Brayan Jaramillo is a 67 y.o. female with stage 4 thymic cancer admitted with hematemesis in settingof thrombocytopenia (resolved); she was found to have severe aortic stenosis and profound volume overload. She remains volume overloaded and would continue with gentle diuresis at this time. Plan: - Recommend continuing acetazolamide 250mg BID, with continued lasix diuresis and goal net [id number] per day. She remains hypervolemic. Upon discharge, can transition to 40mg lasix PO q24h - Recommend wrapping legs to mobilize fluid - Continue with home anticoagulation if tolerated from bleeding standpoint. Continue with diltiazemrate control - Structural heart team to comment on whether she may benefit from TAVR - Strict I/O, daily weights - Palliative care team consulted - Our team has forwarded request to schedulers to set up appointment with Dr. Osei (or heart failure team if not available) for appointment within the next 2 weeks Case discussed with cardiology attending. The above are not finalized until signed by attending. Dejon Hoskins MD 11/05/2022 CARDIOLOGY STAFF NOTE I have personally interviewed and examined the patient and reviewed appropriate data, including labs, ECGs and other diagnostic studies. I agree with the principal findings documented above. The assessment and plan were formulated in discussion with me. Shady Urena MD, [facility], [facility] Staff [employer] automatic bandsaw tender * Kate Amaya RN - 11/04/2022 6:14 PM EDT Patient Summary Reason for admission: Hematemesis, low H/H, and platelets, Relevant PMH: Thymic cancer, Afib, on elaquis, Hypothyroidism, depression, anxiety Significant 24 hour events: 11/02PM: A/Ox4, VSS, on RA. [employer] met with patient this afternoon for outpt plan. Ambulating,stand by assist with FWW to bathroom. Daughter at bedside, supportive of patient. Plan to DC tomorrow with VNA. Action List Wound care BLE Encourage ambulation Right Thoracentesis completed 11/02 Discharge Plan: Home with VNA? Home meds in Rx [] Belongings in safe [] Consults: oncology PT [x] OT [x] MAGNETIC TESTER [] Last Flu vaccine: Last Covid Test Result: * Mina Chavez OT - 11/04/2022 3:32 PM EDT Occupational Therapy Note Document Type: contact Total Minutes, Occupational Therapy: 0 Reason: Attempted to see pt x2. Pt asleep in AM and in PM worked with mobility tech and another provider. We will f/u tomorrow with continuing OT. Pager: [phone] MINA CHAVEZ OT 11/04/2022 Occupational Therapy Rehabilitation Department * Kate Amaya RN - 11/04/2022 2:13 PM EDT Resting on Room Air: 95% Resting on 0.5 liters of O2: 98% Activity on Room Air: 91% Activity on O2 at liters % (did not need oxygen throughout walk) O2 Sats collected by: Kate Amaya RN Date Sats Collected: 11/04/2022 * Lady Woods RN - 11/04/2022 2:05 PM EDT The Patient, Brayan and daughter Yoly, has been provided a list of Home Health Agencies/DME vendors which serve their preferred geographic area. A letter describing our affiliations was reviewed with them and they were educated about their right to choose where referrals are placed. CM provided patient with [facility] Star Quality Rating for Home care hand out. Patient requests resumption of services referral to : [facility] [address] [place] [id number] Expected date of discharge: 11/05/22. Referral routed to the Swat Team Member for matching with agency/vendor and to provide any required information. Lady Woods RN [facility] Lens Matcher/Medicine Office of Care Management Pager: [phone] * Daniel Green MD - 11/04/2022 11:38 AM EDT Hospital Medicine Progress Note Admit Date: 10/22/2022 Hospital Day 13 days Patient ID: Brayan Jaramillo is a 67 y.o. 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 Now with new persistent O2 requirement and newly discovered severe . Interval events: - NAEO - no complaints Physical Exam: Last Set of Vitals and range of vitals over past 24 hours: Last value Range last 24 hrs Temperature Temp: 36.9 ??C (98.4 ??F) Temp: [36.5 ??C (97.7 ??F)-37.8 ??C (100 ??F)] Heart Rate Heart Rate: 72 Heart Rate: [67-73] Blood Pressure BP: 113/66 BP: (100-125)/(56-71) Respiratory Rate Resp: 16 Resp: [16] SpO2 SpO2: 99 % SpO2: [94 %-99 %] Physical Exam Gen: NAD. A&Ox4. Sitting up in bed. HEENT: NC/AT, no scleral icterus. Several teeth missing (side effect of chemo per pt) CV: Irregularly irregular rhythm. Normal rate. 3/6 murmur best appreciated over LUSB. Pulm: no increased WOB on 2L NC Abd: Nondistended, nontender. Reducible umbilical hernia present Ext: Minimal edema in lower legs & thighs today, significantly improved from prior exams Neuro: alert and appropriate. Non-focal. Grossly intact. Psych: cooperative, calm, pleasant Laboratory (Last 24 Hours): Last 3 wbc, hgb, hct plt Recent Labs 11/04/22 0258 11/03/22 0253 11/02/22 0410 WBC 8.6 8.2 7.3 HGB 6.8* 7.0* 7.1* HCT 22.3* 22.6* 23.8* PLATELET 155 154 132* Last 3 Lytes Recent Labs 11/04/22 0258 11/03/22 0253 11/02/22 0410 NA 135 136 140 K 3.6 3.8 3.5 CL 90* 91* 91* CO2 42* 44* 48* BUN 14 17 20* CREATININE 0.76 0.76 0.83 Last 3 LFTs Recent Labs 10/22/22 2310 AST 23 ALT 6 ALKPHOS 49 BILITOT 1.5* BILIDIR 0.7* Last Ca, Mg, Phos Recent Labs 11/04/22 025 CALCIUM 8.3* MAGNESIUM 0.80 Microbiology: No pertinent positives Radiology: IR Thoracentesis Right Final Result XR Chest PA & Lateral (Generic) Final Result No decrease in size of right pleural effusion with size intrafissural components. Stable smaller left pleural effusion. No pneumothorax. Thank you for letting us participate in the care of this patient. If you are a health care provider and have any questions regarding this report, please contact the number below. For patients who have questions please contact the health foster care worker that requested your imaging first. Electronically signed by: Saul Plunkett MD, [facility] ([phone]), at 11/01/2022 1:36 PM IR Thoracentesis Right Final Result XR Chest One View Final Result 1. Unchanged moderate right and small left pleural effusions. 2. Persistent mild pulmonary vascular congestion. 3. The bilateral lower lobe opacities are nonspecific and likely represent a combination of effusion and atelectasis however a component of pneumonia is difficult to exclude particularly at the right lung base. Thank you for letting us participate in the care of this patient. If you are a health care provider and have any questions regarding this report, please contact the number below. For patients who have questions please contact the health foster care worker that requested your imaging first. Electronically signed by: Saul Lemus MD, [facility] ([phone]), at 10/26/2022 12:10 PM 10/28 R pleural fluid (750cc drained) Fluid/serum LDH 0.44 (transudative) Fluid/serum protein 0.47 (transudative) LDH is 0.62 of upper limit of normal (transudative) 11/02 R pleural fluid (1L drained) Fluid/serum LDH 0.62 (exudative) Fluid/serum protein 0.51 (exudative) LDH is 0.81 of upper limit of normal (exudative) Other Studies: TTE 10/26/22: Interpretation Summary There is severe aortic stenosis. [...] pericardial effusion. See report for additional findings. Assessment: Brayan Jaramillo is a 67 y.o. 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 ?? 11/04: ITP has responded appropriately to steroids and platelets continue to recover nicely. Given contraction alkalosis and stable weight at ~205 lbs the past few days, we will continue loop diureticholiday but give acetazolamide today and monitor. Still plan to initiate oral dose finding in the coming days. Cardiology saw pt yesterday, appreciate recs. Will continue supportive care and discharge planning with the patient and daughter Cass (swing vs SNF vs home with services). PLAN: #Newly discovered severe aortic stenosis #Acute hypoxic respiratory failure secondary to pulmonary edema, pleural effusions, atelectasis, improving #Anasarca possibly 2/2 prior chemotherapy meds - 10/22 CT chest & CXR from [facility] bilateral pleural effusions, and atelectasis - 10/26 TTE with severe - 10/28 R thoracentesis with 750cc removed, transudative - 11/02 R thoracentesis with 1L removed, exudative - continue supplemental oxygen - hold lasix & amiloride today given contraction alkalosis - start acetazolamide - appreciate cards recs #atrial fibrillation - continue Diltiazem 180 mg qd (dose reduced from home 240 mg qd) - continue home Eliquis #Severe thrombocytopenia 2/2 ITP, resolved #Hematemesis vs hemoptysis, resolved #Anemia, acute on chronic - appreciate heme onc assistance - s/p dexamethasone 40 mg qd for 4 days (10/23-10/26) - resume home apixaban (for A fib) - once daily PO PPI #K[place]IGH, likely cardiorenal, resolved - avoid nephrotoxins - continue to trend Cr - encourage PO intake?? #Contraction alkalosis 2/2 aggressive diuresis #Hypokalemia 2/2 aggressive diuresis - K repletion as needed - continue to monitor BMP, lytes ?? #Home medications - continue home levothyroxine - continue home paroxetine 20 mg ?? Routine Diet: Regular diet DVT: Eliquis 5 BID GI: PPI daily Dispo: pending clinical course CODE: Attempt Cardiopulmonary Resuscitation - Inpatient Daniel Green MD 11/04/2022 [facility] Medicine [place] Team Pager [phone] Associated attestation - Douglas Escobedo MD - 11/04/2022 2:37 PM EDT Attending Attestation and Certification Please see Daniel Green MD's note for details of the patient history of presentation and data. I have discussed, reviewed and agree with the documented History, Physical findings, Assessment and Plan of care. Plan to start acetazolamide today per cardiology recs. Will cont with lasix at 40mg daily and monitor I/Os. If renal function and electrolytes are stable tomorrow can likely discharge home with VNA. I have examined the patient myself and personally reviewed all studies. In addition, I certify thatI am a D-H credentialed attending provider with admitting privileges and that the patient meets or has met medical necessity to require an inpatient IPI level of care meeting a minimum of two midnights or is on the CMS inpatient only procedure list (status C) due to: monitoring of fluid status given an inability to regulate fluid balance and the need for administration or restriction of fluids * Lady Woods RN - 11/04/2022 10:44 AM EDT Tentative plan for medical readiness for discharge to Rehab versus home with services on 11/05. Miniature Set Builder attempted to speak with daughterYoly via telephone. Unavailable and unable to leave message as mailbox full. CM to continue to assist with discharge planning. Lady Woods RN [facility] Lens Matcher/Medicine Office of Care Management Pager: [phone] * Charo Bradley RN - 11/04/2022 7:47 AM EDT Illness Severity [x] Stable Patient Summary Reason for admission: Hematemesis, low H/H, and platelets, Relevant PMH: Thymic cancer, Afib, on elaquis, Hypothyroidism, depression, anxiety Significant 24 hour events: 11/03PM: Patient a/ox4. VSS on 1L NC. Given 1u pRBC, tolerated well. Continues to have arthritis pain in her knees, given PO tylenol with good effect. Able to make needs known. Action List Wound care BLE Encourage ambulation Right Thoracentesis completed 11/02 Discharge Plan: SNF? Home with VNA? * Dejon Hoskins MD - 11/04/2022 6:56 AM EDT Cardiology Consult Progress Note Admit Date: 10/22/2022 Interval events / Subjective: No acute complaints today and she denies chest discomfort, dyspnea, or lightheadedness. I/O recorded net negative 440mL though no intake recorded for yesterday evening. Patient Active Problem List Diagnosis ??? Platelet disorder ??? Abnormal uterine bleeding ??? Pancytopenia ??? Atrial fibrillation Treated with metoprolol, diltiazem, eliquist ??? Essential hypertension ??? 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 Thymic carcinoma Inpatient Meds: Scheduled Meds: ??? apixaban 5 mg Oral BID ??? dilTIAZem CD 180 mg Oral Daily ??? polyethylene glycoL (MIRALAX) oral powder 17 g Oral BID ??? senna-docusate 2 tablet Oral BID ??? melatonin 6 mg Oral Nightly ??? triamcinolone Topical (Top) BID ??? sodium chloride 0.9 % (flush) 5 mL Intravenous BID ??? levothyroxine 150 mcg Oral Daily ??? PARoxetine 20 mg Oral QAM Continuous Infusions: PRN Meds:.ondansetron, carboxymethylcellulose, sodium chloride, albuteroL, loratadine, sodium chloride 0.9 % (flush), lidocaine, acetaminophen Allergies: Allergies Allergen Reactions ??? Kiwi (Actinidia Chinensis) Itching and Other (See Comments) Mouth swelling ??? Carboplatin ??? Penicillins Hives ??? Pollen Extracts Other (See Comments) rhinorrhea Vitals: Last value Range last 24 hrs Temperature Temp: 36.9 ??C (98.4 ??F) Temp: [36.5 ??C (97.7 ??F)-37.8 ??C (100 ??F)] Heart Rate Heart Rate: 67 Heart Rate: [67-73] Blood Pressure BP: 119/69 BP: (100-125)/(56-71) Respiratory Rate Resp: 16 Resp: [16-18] SpO2 SpO2: 96 % SpO2: [86 %-97 %] I's and O's: Intake/Output Summary (Last 24 hours) at 11/04/2022 0656 Last data filed at 11/04/2022 0428 Gross per 24 hour Intake 360 ml Output 800 ml Net -440 ml Weights: Patient Vitals for the past 168 hrs: Weight 11/03/22 0733 92.9 kg (204 lb 12.9 oz) 11/02/22 0415 93.3 kg (205 lb 11 oz) 11/01/22 1001 93.3 kg (205 lb 11 oz) 10/31/22 0535 93.2 kg (205 lb 7.5 oz) 10/29/22 1210 99.2 kg (218 lb 11.1 oz) Examination: General: Pleasant female in no acute distress Cardiac: Regular rate, irregular rhythm, 3/6 systolic murmur. JVD noted while sitting upright Respiratory: Faint bibasilar crackles Extremities: Warm, 3+ bilateral lower extremity edema with cracked skin Neuro: Alert and oriented Skin: Warm, dry Psych: Normal affect Labs: CBC: Recent Labs 11/04/228 11/03/22 0253 11/02/22 0410 WBC 8.6 8.2 7.3 HGB 6.8* 7.0* 7.1* PLATELET 155 154 132* Chemistry: Recent Labs 11/04/2225711/03/22 0253 11/02/22 0410 NA 135 136 140 K 3.6 3.8 3.5 CL 90* 91* 91* CO2 42* 44* 48* BUN 14 17 20* CREATININE 0.76 0.76 0.83 GLUCOSE 118 127 111 Recent Labs 11/04/22 0258 11/03/22 0253 11/02/22 0410 CALCIUM 8.3* 8.3* 8.3* MAGNESIUM 0.80 0.84 0.69 LFT's: Recent Labs 10/22/22 2310 BILITOT 1.5* BILIDIR 0.7* ALBUMIN 2.6* ALKPHOS 49 ALT 6 AST 23 Coags: No results for input(s): PT, INR, PTT, FIBRINOGEN, DDIMER in the last 168 hours. Invalid input(s): THROMBIN TIME Cardiac enzymes: No results for input(s): TROPONINT, CK in the last 7068 hours. Transthoracic Echocardiogram 10/26: There is severe aortic stenosis. The mean [...] posterior pericardial effusion. See report for additional findings Assessment: Brayan Jaramillo is a 67 y.o. female with stage 4 thymic cancer admitted with hematemesis in settingof thrombocytopenia, since improved; she was found to have severe aortic stenosis and profound volume overload (the latter is improving with continued diuresis). She remains volume overloaded and would continue with diuresis at this time; if alkalosis is problematic can add acetazolamide to regimen. BUN has fallen to 14 and creatinine at 0.76 which argue against overdiuresis currently. Plan: - Recommend starting acetazolamide 250mg BID, with continued lasix diuresis and goal net negative 1L per day - Continue with home anticoagulation if tolerated from bleeding standpoint. Continue with diltiazemrate control - Our team has reached out to the structural heart team for former comment on TAVR - Strict I/O, daily weights Case discussed with cardiology attending. The above are not finalized until signed by attending. Dejon Hoskins MD 11/04/2022 * Kate Amaya RN - 11/03/2022 5:51 PM EDT Patient Summary Reason for admission: Hematemesis, low H/H, and platelets, Relevant PMH: Thymic cancer, Afib, on elaquis, Hypothyroidism, depression, anxiety Significant 24 hour events: 11/01AM: A/Ox4, vss, 1L NC while napping. Up with Ax1 to bathroom. PT and OT worked with patient, ambulated around unit well. Planning to DC with VNA services. Action List Wound care BLE Encourage ambulation Right Thoracentesis completed 11/02 Discharge Plan: SNF- [facility] pending bed available Home meds in Rx [] Belongings in safe [] Consults: oncology PT [x] OT [x] MAGNETIC TESTER [] Last Flu vaccine: Last Covid Test Result: * Mina Chavez OT - 11/03/2022 1:38 PM EDT Occupational Therapy Note Document Type: contact Total Minutes, Occupational Therapy: 0 Reason: Attempted to see patient for OT. Pt declining due to emotional ab out d/c planning with hope to go home with supportive family. We will f/u with patient tomorrow with OT. Pager: [phone] MINA CHAVEZ OT 11/03/2022 Occupational Therapy Rehabilitation Department * Julissa Byrd RN - 11/03/2022 1:09 PM EDT The Patient has been provided a list of Home Health Agencies/DME vendors which serve their preferred geographic area. A letter describing our affiliations was reviewed with them and they were educated about their right to choose where referrals are placed. Patient requests referral to : [facility] (Resp Supplies) Expected date of discharge: 11/04/22. Referral routed to the Swat Team Member for matching with agency/vendor and to provide any required information. * Shady Urena MD - 11/03/2022 10:25 AM EDT Cardiology Consult Progress Note Admit Date: 10/22/2022 Interval events / Subjective: In interim, Ms. Jaramillo reports that with diuresis, she has been feeling significantly better. Her platelet count continues to improve. No acute complaints today and she denies chest discomfort, dyspnea, or lightheadedness Patient Active Problem List Diagnosis ??? Platelet disorder ??? Abnormal uterine bleeding ??? Pancytopenia ??? Atrial fibrillation Treated with metoprolol, diltiazem, eliquist ??? Essential hypertension ??? 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 Thymic carcinoma Inpatient Meds: Scheduled Meds: ??? apixaban 5 mg Oral BID ??? dilTIAZem CD 180 mg Oral Daily ??? polyethylene glycoL (MIRALAX) oral powder 17 g Oral BID ??? senna-docusate 2 tablet Oral BID ??? melatonin 6 mg Oral Nightly ??? triamcinolone Topical (Top) BID ??? sodium chloride 0.9 % (flush) 5 mL Intravenous BID ??? levothyroxine 150 mcg Oral Daily ??? PARoxetine 20 mg Oral QAM Continuous Infusions: PRN Meds:.ondansetron, carboxymethylcellulose, sodium chloride, albuteroL, loratadine, sodium chloride 0.9 % (flush), lidocaine, acetaminophen Allergies: Allergies Allergen Reactions ??? Kiwi (Actinidia Chinensis) Itching and Other (See Comments) Mouth swelling ??? Carboplatin ??? Penicillins Hives ??? Pollen Extracts Other (See Comments) rhinorrhea Vitals: Last value Range last 24 hrs Temperature Temp: 37.3 ??C (99.1 ??F) Temp: [36.6 ??C (97.9 ??F)-37.3 ??C (99.1 ??F)] Heart Rate Heart Rate: 75 Heart Rate: -- Blood Pressure BP: 110/59 BP: (100-110)/(58-66) Respiratory Rate Resp: 16 Resp: [16-20] SpO2 SpO2: 90 % SpO2: [87 %-98 %] I's and O's: Intake/Output Summary (Last 24 hours) at 11/03/2022 1026 Last data filed at 11/03/2022 0735 Gross per 24 hour Intake 240 ml Output 1100 ml Net -860 ml Weights: Patient Vitals for the past 168 hrs: Weight 11/03/22 0733 92.9 kg (204 lb 12.9 oz) 11/02/22 0415 93.3 kg (205 lb 11 oz) 11/01/22 1001 93.3 kg (205 lb 11 oz) 10/31/22 0535 93.2 kg (205 lb 7.5 oz) 10/29/22 1210 99.2 kg (218 lb 11.1 oz) 10/28/22 0156 105.1 kg (231 lb 11.3 oz) Examination: General: Pleasant female in no acute distress Cardiac: Regular rate and irregular rhythm, 3/6 systolic murmur auscultated. JVD noted with sittingupright Respiratory: Decreased breath sounds at bases bilaterally Extremities: Warm, 3+ bilateral lower extremity edema Neuro: Alert and oriented Skin: Warm, dry Psych: Normal affect Labs: CBC: Recent Labs 11/03/22 0253 11/02/22 0410 11/01/22 0420 WBC 8.2 7.3 7.1 HGB 7.0* 7.1* 7.5* PLATELET 154 132* 131* Chemistry: Recent Labs 11/03/22 0253 11/02/22 0410 11/01/22 0420 NA 136 140 143 K 3.8 3.5 3.5 CL 91* 91* 93* CO2 44* 48* 44* BUN 17 20* 27* CREATININE 0.76 0.83 0.83 GLUCOSE 127 111 113 Recent Labs 11/03/22 0253 11/02/22 0410 11/01/22 0420 CALCIUM 8.3* 8.3* 8.4* MAGNESIUM 0.84 0.69 0.69 LFT's: Recent Labs 10/22/22 2310 BILITOT 1.5* BILIDIR 0.7* ALBUMIN 2.6* ALKPHOS 49 ALT 6 AST 23 Coags: No results for input(s): PT, INR, PTT, FIBRINOGEN, DDIMER in the last 168 hours. Invalid input(s): THROMBIN TIME Cardiac enzymes: No results for input(s): TROPONINT, CK in the last 7068 hours. Transthoracic Echocardiogram 10/26: There is severe aortic stenosis. The mean [...] posterior pericardial effusion. See report for additional findings Assessment: Brayan Jaramillo is a 67 y.o. female with stage 4 thymic cancer admitted with hematemesis in settingof thrombocytopenia, since improved; she was found to have severe aortic stenosis and profound volume overload (the latter is improving with continued diuresis). She does remain volume overloaded andwould continue with diuresis at this time Plan: - Recommend continued diuresis (her home lasix is currently held), strict monitoring of I/Os, goal for net negative 1L per day - Continue with home anticoagulation (was on Eliquis, currently held) if tolerated from bleeding standpoint. Continue with diltiazem rate control - Our team has reached out to the structural heart team for former comment on TAVR. Per chart, prognosis of her malignancy is approximately 6-12 months, though she did present with profound overload Case discussed with cardiology attending. The above are not finalized until signed by attending. Dejon Hoskins MD 11/03/2022 CARDIOLOGY STAFF NOTE I have personally interviewed and examined the patient and reviewed appropriate data, including labs, ECGs and other diagnostic studies. I agree with the principal findings documented above. The assessment and plan were formulated in discussion with me. Shady Urena MD, 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 Interval History: Per last hospital medicine note on 11/03/2022 - feeling better this morning; breathing feels easier compared with days prior Social History: Home set-up: Lives??with son, DIL, and 2 grandchildren in a single level home in [place], [place] Stairs:??Ramp to enter Bathroom Set-up:??Clawfoot tub, has been sponge bathing due to difficulty getting in/out of the tub. Plans to get bathroom renovated to have a walk-in shower Baseline Mobility:??Ambulates with a 4WW inside and a w/c outside or when fatigued (typically dependently pushed with the w/c). Independent with most I/ADLs, including cleaning, and simple meals. Family assists with laundry, checking the mail, and running errands. Doesn't wear O2 at baseline. Equipment at home:??4WW, manual w/c, licensed audiologist Fall history:??Denies?? Precautions/Special Considerations: Full Code, High risk for skin breakdown, At risk to Fall, Low Platelets, BLE wounds Lines: Nikhil, PIV, Supplemental Oxygen,??Implanted port Activity Orders:??Activity as tolerated?? Diet:??Regular Diet Mobility and Positioning Recommendations: ?? Pt to utilize 1 assist and FWW for ambulation and transfers w/ staffing analyst as able ?? Pt encouraged to ambulate to BR for voiding. ?? Please encourage up to chair for meal times as able. Subjective: My arthritic knee is starting to act up Objective: Patient seen for physical therapy and demonstrated the following: Pain: Pt reported increased pain in L knee when ambulating 11/20, did not limit participation w/ therapy Vital Signs: Pt on RA at start of session, SpO2 between 87% and 88%, placed on .5L NC, SpO2 between 92% and 95%.HR and BP WNL Cognition/Vision: Pt was alert and cooperative w/ therapy Bed Mobility: Supine to Sit: supervised, HOB elevated, use of bed rails Sit to Supine: N/A, session ended w/ pt in recliner chair Transfers: Sit to Stand: contact guard assist, Performed from EOB and black visitor chair, increased time and effort to stand fully upright, no overt LOB noted, no VCs for hand placement using rolling walker Stand to Sit: contact guard assist, fair eccentric control using rolling walker Gait: Distance: ~50 ft + 50 ft, extended seated rest break required Device used: rolling walker Level of assist: supervised, contact guard assist, chair follow, line management Gait mechanics: min trunk sway, decreased gait speed, step length and foot clearance, slight antalgic gait noted on L d/t knee pain, no LOB noted Stairs: N/A Balance: Sitting Static: Good Sitting Dynamic: Fair Standing Static: Fair w/ FWW Standing Dynamic / Gait: Fair w/ FWW Education: Pt educated on importance of continued participation w/ therapy and mobilization OOB, transfer training, gait training, energy conservation, therex Therex: provided pt w/ HEP handout, performed while in chair: APs x10, glute sets x10, quad sets x10, hamstring sets x10, adductor sets x10, heel slides x10. Pt demonstrated proper sequencing and carryover of instruction Pt left in bedside recliner chair, with all needs met and with call wallace in reach RN aware following visit. Assessment: Brayan Jaramillo was seen today for physical therapy treatment session for continuation of POC. Pt was able to increase her ambulation distance this session, however did require some rest breaks d/t increased pain in L knee. Pt had no overt LOB and was able to perform therex comfortably.Pt has demonstrated that she may be able to d/c home w/ VNA services, however she still have strength and endurance deficits. She may benefit from a short rehab stay to continue progress on those. Will continue to work w/ pt while in-house to progress towards functional goals Pt will benefit from ongoing therapeutic interventions to achieve therapy goals. Discharge Recommendations: Based on the current findings, Anticipated Discharge Disposition (PT): swing bed rehabilitation facility, home with home health when medically ready for hospital discharge. Consult Recommendations: No other consults recommended at this time. Equipment needs: Anticipated Equipment Needs at Discharge (PT): to be determined Physical Therapy Goals: To be achieved by??11/19/2022: Ongoing ?? 1. Pt. to demonstrate knowledge of safety limitations and precautions and will appropriately request assistance for functional activities and to mobilize. 2. Pt. to demonstrate understanding of appropriate therapeutic exercises. 3. Pt. to perform bed mobility??with supervision??with HOB flat. 4. Pt. to perform??sit<>stand??transfers with modified independence??using a front wheeled walker. ?? 5. Pt. to ambulate??75??feet with modified independence??using a front wheeled walker. 6. Pt to propel wheelchair x??50??ft. using??BUE. 7. Pt will tolerate progression towards upright with stable vital signs. 8. Family or caregiver to demonstrate understanding of therapeutic interventions to support the care of the patient. Plan: Therapy Frequency (PT): 2-4 times/wk for therapy interventions as outlined in initial evaluation. Patient agrees with plan as stated. Time IN / OUT: 3142-8739 Total Minutes, Physical Therapy: 37 Billing Code: TEF 2 Senait Bhanu Baez PTA Pager: [phone] Physical Therapy Inpatient Rehabilitation Department * Dennise Peres MD - 11/03/2022 7:51 AM EDT [facility] Medicine Progress Note Admit Date: 10/22/2022 Hospital Day 16 days Patient ID: Brayan Jaramillo is a 67 y.o. 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 Now with new persistent O2 requirement and newly discovered severe . Interval events: - feeling better this morning; breathing feels easier compared with days prior Physical Exam: Last Set of Vitals and range of vitals over past 24 hours: Last value Range last 24 hrs Temperature Temp: 36.9 ??C (98.4 ??F) Temp: -- Heart Rate Heart Rate: 72 Heart Rate: -- Blood Pressure BP: 108/56 BP: -- Respiratory Rate Resp: 19 Resp: -- SpO2 SpO2: 100 % SpO2: -- Physical Exam Gen: NAD. A&Ox4. Sitting up in bed. HEENT: NC/AT, no scleral icterus. Several teeth missing (side effect of chemo per pt) CV: Irregularly irregular rhythm. Normal rate. 3/6 murmur best appreciated over LUSB. Pulm: no increased WOB on 2L NC Abd: Nondistended, nontender. Reducible umbilical hernia present Ext: Minimal edema in lower legs & thighs today, significantly improved from prior exams Neuro: alert and appropriate. Non-focal. Grossly intact. Psych: cooperative, calm, pleasant Laboratory (Last 24 Hours): Last 3 wbc, hgb, hct plt Recent Labs 11/07/22 0258 11/06/22 0419 11/05/22 0310 WBC 8.7 9.4 10.2* HGB 7.6* 7.8* 8.0* HCT 24.5* 25.4* 25.1* PLATELET 191 207 188 Last 3 Lytes Recent Labs 11/07/22 0258 11/06/22 0419 11/05/22 0310 NA 136 132* 135 K 3.2* 3.0* 3.1* CL 98 93* 92* CO2 30 31 38* BUN 13 13 16 CREATININE 0.87 0.84 0.92 Last 3 LFTs Recent Labs 10/22/22 2310 AST 23 ALT 6 ALKPHOS 49 BILITOT 1.5* BILIDIR 0.7* Last Ca, Mg, Phos Recent Labs 11/07/22 0258 CALCIUM 8.6 MAGNESIUM 0.71 Microbiology: No pertinent positives Radiology: CT Angiogram Abdomen & Pelvis w Contrast (Generic) Final Result 1. Minimal aortoiliac luminal diameters as described above. 2. Small volume ascites. 3. Fat and colon containing supra umbilical ventral hernia without obstruction or strangulation. 4. Uterine fibroids. 5. Cholelithiasis without cholecystitis. Thank you for letting us participate in the care of this patient. If you are a health care provider and have any questions regarding this report, please contact the number below. For patients who have questions please contact the health foster care worker that requested your imaging first. Electronically signed by: Josh Coates MD, [facility] ([phone]), at 11/09/2022 8:[address] Cardiac for Morphology & Function Final Result Pre-TAVR measurements as above. 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 Moderate to large pleural effusion on the right and small to moderate pleural effusion on the left. Associated partial compression atelectasis of the bilateral lower lobes. Right-sided port catheter ends at the most cranial aspect of the SVC. Biatrial enlargement of the heart. Thank you for letting us participate in the care of this patient. If you are a health care provider and have any questions regarding this report, please contact the number below. For patients who have questions please contact the health foster care worker that requested your imaging first. Electronically signed by: Yuki Alaniz MD, [facility] ([phone]), at 11/06/2022 8:32 AM IR Thoracentesis Right Final Result XR Chest PA & Lateral (Generic) Final Result No decrease in size of right pleural effusion with size intrafissural components. Stable smaller left pleural effusion. No pneumothorax. Thank you for letting us participate in the care of this patient. If you are a health care provider and have any questions regarding this report, please contact the number below. For patients who have questions please contact the health foster care worker that requested your imaging first. Electronically signed by: Saul Plunkett MD, [facility] ([phone]), at 11/01/2022 1:36 PM IR Thoracentesis Right Final Result XR Chest One View Final Result 1. Unchanged moderate right and small left pleural effusions. 2. Persistent mild pulmonary vascular congestion. 3. The bilateral lower lobe opacities are nonspecific and likely represent a combination of effusion and atelectasis however a component of pneumonia is difficult to exclude particularly at the right lung base. Thank you for letting us participate in the care of this patient. If you are a health care provider and have any questions regarding this report, please contact the number below. For patients who have questions please contact the health foster care worker that requested your imaging first. Electronically signed by: Saul Lemus MD, [facility] ([phone]), at 10/26/2022 12:10 PM 5/18 R pleural fluid (750cc drained) Fluid/serum LDH 0.44 (transudative) Fluid/serum protein 0.47 (transudative) LDH is 0.62 of upper limit of normal (transudative) 11/02 R pleural fluid (1L drained) Fluid/serum LDH 0.62 (exudative) Fluid/serum protein 0.51 (exudative) LDH is 0.81 of upper limit of normal (exudative) Other Studies: TTE 10/26/22: Interpretation Summary There is severe aortic stenosis. [...] pericardial effusion. See report for additional findings. Assessment: Brayan Jaramillo is a 67 y.o. 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 ?? 11/03: ITP responded appropriately to steroids and platelets continue to recover nicely. Given contraction alkalosis (bicarb 48, chloride 91) and stable weight at 205 lbs the past few days, we will continue diuresis holiday and plan to initiate oral dose finding in the coming days. Will alert Cardiology that she is in a good place to be evaluated for symptom burden. Otherwise, will continue supportive care and discharge planning with the patient and daughter Cass (swing vs SNF vs home withservices). PLAN: #Newly discovered severe aortic stenosis #systolic heart failure 2/2 aortic stenosis, acute on chronic #Acute hypoxic respiratory failure secondary to pulmonary edema, pleural effusions, atelectasis, improving #Anasarca possibly 2/2 prior chemotherapy meds - 10/22 CT chest & CXR from [facility] bilateral pleural effusions, and atelectasis - 10/26 TTE with severe - 10/28 R thoracentesis with 750cc removed, transudative - 11/02 R thoracentesis with 1L removed, exudative - continue supplemental oxygen - hold lasix & amiloride today given contraction alkalosis - appreciate cards recs #atrial fibrillation - continue Diltiazem 180 mg qd (dose reduced from home 240 mg qd) - continue home Eliquis #Severe thrombocytopenia 2/2 ITP, resolved #Hematemesis vs hemoptysis, resolved #Anemia, acute on chronic - appreciate heme onc assistance - s/p dexamethasone 40 mg qd for 4 days (10/23-10/26) - resume home apixaban (for A fib) - once daily PO PPI #KALEIGH, likely cardiorenal, resolved - avoid nephrotoxins - continue to trend Cr - encourage PO intake?? #Contraction alkalosis 2/2 aggressive diuresis #Hypokalemia 2/2 aggressive diuresis - K repletion as needed - continue to monitor BMP, lytes ?? #Home medications - continue home levothyroxine - continue home paroxetine 20 mg ?? Routine Diet: No diet orders on file DVT: Eliquis 5 BID GI: PPI daily Dispo: pending clinical course CODE: Attempt Cardiopulmonary Resuscitation - Inpatient Dennise Peres MD 11/10/2022 [facility] Medicine [place] Team Pager [phone] Attending Attestation and Certification Please see Flavia Jay MD's note for details of the patient history of presentation and data. I have discussed, reviewed and agree with the documented History, Physical findings, Assessmentand Plan of care. I have examined the patient myself and personally reviewed all studies. In addition, I certify thatI am a D-H credentialed attending provider with admitting privileges and that the patient meets or has met medical necessity to require an inpatient IPI level of care meeting a minimum of two midnights or is on the CMS inpatient only procedure list (status C) due to: the patient has met Inpatient IPI criteria and is awaiting rehabilitation or half-way facility placement with active referrals in process * Charo Bradley RN - 11/03/2022 7:02 AM EDT Illness Severity [x] Stable Patient Summary Reason for admission: Hematemesis, low H/H, and platelets, Relevant PMH: Thymic cancer, Afib, on elaquis, Hypothyroidism, depression, anxiety Significant 24 hour events: 11/02PM: A/Ox4, VSS, 1L NC. Patients stats increased ease of breathing, feeling positive after thoracentesis. Denies pain. Ambulating, stand by assist with FWW to bathroom. Able to make needs known. Action List Wound care BLE Encourage ambulation Right Thoracentesis completed 11/02 Discharge Plan: SNF- [facility] pending bed available Situational Awareness & Contingency Planning Do not shut door - pt is claustrophobic BLEs (2 RLE: upper calf,lower calf, 2 LLE: upper calf, lower calf) Mepilex Border dressing-nursing to change every 3 days and as needed for dressing with 50% or greater strike though drainage. 1. Cleanse wound with dermal wound cleanser and gauze. 2. Apply Mepilex Border dressing Wound Care will follow weekly 10/28 - Right Thoracentesis by IR: 750cc drained. 11/02 - Right Thoracentesis by IR: 1000cc drained. * Daniel Green MD - 11/02/2022 2:45 PM EDT [facility] Medicine Progress Note Admit Date: 10/22/2022 Hospital Day 11 days Patient ID: Brayan Jaramillo is a 67 y.o. 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 Now with new persistent O2 requirement and newly discovered severe . Interval events: - feels relatively well this morning, no complaints - eating breakfast at side of bed - oxygen requirement at 2L NC ON - reports legs feel much better compared with admission Physical Exam: Last Set of Vitals and range of vitals over past 24 hours: Last value Range last 24 hrs Temperature Temp: 37 ??C (98.6 ??F) Temp: [36.2 ??C (97.2 ??F)-37.4 ??C (99.3 ??F)] Heart Rate Heart Rate: 75 Heart Rate: -- Blood Pressure BP: 102/62 BP: (87-120)/(49-70) Respiratory Rate Resp: 18 Resp: [16-22] SpO2 SpO2: 97 % SpO2: [95 %-100 %] Physical Exam Gen: NAD. A&Ox4. Sitting up in bed. HEENT: NC/AT, no scleral icterus. Several teeth missing (side effect of chemo per pt) CV: Irregularly irregular rhythm. Normal rate. 3/6 murmur best appreciated over LUSB. Pulm: no increased WOB on 2L NC Abd: Nondistended, nontender. Reducible umbilical hernia present Ext: Minimal edema in lower legs & thighs today, significantly improved from prior exams Neuro: alert and appropriate. Non-focal. Grossly intact. Psych: cooperative, calm, pleasant Laboratory (Last 24 Hours): Last 3 wbc, hgb, hct plt Recent Labs 11/02/22 0410 11/01/22 0420 10/31/22 0145 WBC 7.3 7.1 7.0 HGB 7.1* 7.5* 7.5* HCT 23.8* 25.0* 24.7* PLATELET 132* 131* 126* Last 3 Lytes Recent Labs 11/02/22 0410 11/01/22 0420 10/31/22 1423 NA 140 143 143 K 3.5 3.5 3.4* CL 91* 93* 95* CO2 48* 44* 43* BUN 20* 27* 30* CREATININE 0.83 0.83 0.86 Last 3 LFTs Recent Labs 10/22/22 2310 AST 23 ALT 6 ALKPHOS 49 BILITOT 1.5* BILIDIR 0.7* Last Ca, Mg, Phos Recent Labs 11/02/22 0410 CALCIUM 8.3* MAGNESIUM 0.69 Microbiology: No pertinent positives Radiology: IR Thoracentesis Right XR Chest PA & Lateral (Generic) Final Result No decrease in size of right pleural effusion with size intrafissural components. Stable smaller left pleural effusion. No pneumothorax. Thank you for letting us participate in the care of this patient. If you are a health care provider and have any questions regarding this report, please contact the number below. For patients who have questions please contact the health foster care worker that requested your imaging first. Electronically signed by: Saul Plunkett MD, [facility] ([phone]), at 11/01/2022 1:36 PM IR Thoracentesis Right Final Result XR Chest One View Final Result 1. Unchanged moderate right and small left pleural effusions. 2. Persistent mild pulmonary vascular congestion. 3. The bilateral lower lobe opacities are nonspecific and likely represent a combination of effusion and atelectasis however a component of pneumonia is difficult to exclude particularly at the right lung base. Thank you for letting us participate in the care of this patient. If you are a health care provider and have any questions regarding this report, please contact the number below. For patients who have questions please contact the health foster care worker that requested your imaging first. 10/28 R pleural fluid (750cc drained) Fluid/serum LDH 0.44 (transudative) Fluid/serum protein 0.47 (transudative) LDH is 0.62 of upper limit of normal (transudative) 11/02 R pleural fluid (1L drained) Fluid/serum LDH 0.62 (exudative) Fluid/serum protein 0.51 (exudative) LDH is 0.81 of upper limit of normal (exudative) Other Studies: TTE 10/26/22: Interpretation Summary There is severe aortic stenosis. [...] pericardial effusion. See report for additional findings. Assessment: Brayan Jaramillo is a 67 y.o. 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 ?? 11/02: ITP responded appropriately to steroids and platelets continue to recover nicely. Given contraction alkalosis (bicarb 48, chloride 91) and stable weight at 205 lbs the past few days, will hold off on further diuresis. Pt went with IR this morning for repeat R thoracentesis. Pleural fluid studies this time suggest exudative, but near cutoffs and also unclear if these results might be less acc urate given recent thora on 10/28. At this point in time, suspect recurrent effusions most likely 2/2 severe and back-up of fluid from heart. We suspect she may have had an oxygen requirement priorto admission that has simply now been uncovered since she is here. Will also continue to assess forsymptom burden of now that we suspect she is more euvolemic. Appreciate work of PT/OT and care management teams, pt may be able to discharge tomorrow. PLAN: #Newly discovered severe aortic stenosis #Acute hypoxic respiratory failure secondary to pulmonary edema, pleural effusions, atelectasis, improving #Anasarca possibly 2/2 prior chemotherapy meds - 10/22 CT chest & CXR from [facility] bilateral pleural effusions, and atelectasis - 10/26 TTE with severe - 10/28 R thoracentesis with 750cc removed, transudative - 11/02 R thoracentesis with 1L removed, exudative - continue supplemental oxygen - hold lasix & amiloride today given contraction alkalosis - appreciate cards recs #atrial fibrillation - continue Diltiazem 180 mg qd (dose reduced from home 240 mg qd) - continue home Eliquis #Severe thrombocytopenia 2/2 ITP, resolved #Hematemesis vs hemoptysis, resolved #Anemia, acute on chronic - appreciate heme onc assistance - s/p dexamethasone 40 mg qd for 4 days (10/23-10/26) - resume home apixaban (for A fib) - once daily PO PPI #KALEIGH, likely cardiorenal, resolved - avoid nephrotoxins - continue to trend Cr - encourage PO intake?? #Contraction alkalosis 2/2 aggressive diuresis #Hypokalemia 2/2 aggressive diuresis - K repletion as needed - continue to monitor BMP, lytes ?? #Home medications - continue home levothyroxine - continue home paroxetine 20 mg ?? Routine Diet: Regular diet DVT: Eliquis BID GI: PPI daily Dispo: pending clinical course CODE: Attempt Cardiopulmonary Resuscitation - Inpatient Daniel Green MD 11/02/2022 [facility] Medicine [place] Team Pager [phone] Associated attestation - Douglas Escobedo MD - 11/02/2022 7:00 PM EDT Attending Attestation and Certification Please see Daniel Green MD's note for details of the patient history of presentation and data. I have discussed, reviewed and agree with the documented History, Physical findings, Assessment and Plan of care. Pleural effusion reaccumulated. Asked IR if they could drain. Given recurrence likely related to malignancy, particularly as we have diuresed her to the point of metabolic alkalosis. Will hold further diuresis at this time but would likely benefit from some amount of daily volume control once electrolytes normalize. Will likely need O2 going forward as effusion otherwise difficult to control short of serial thoracentesis. I was not able to examine the patient myself as she was having a procedure but I did personally review all studies. In addition, I certify that I am a D-H credentialed attending provider with admitting privileges and that the patient meets or has met medical necessity to require an inpatient IPI level of care meeting a minimum of two midnights or is on the [facility] inpatient only procedure list (status C) due to: acute respiratory compromise and/or hypoxia requiring assessment every 4 hours and the ability to respond immediately to the patient's need * Lady Woods RN - 11/02/2022 1:51 PM EDT Patient continues to require inpt care related to diuresis, persistent new oxygen requirement, possible need for thoracentesis. [facility] is considering patient for admission but does not have bed's available today. CM to continue to assist with discharge planning. Lady Woods RN [facility] Lens Matcher/Medicine Office of Care Management Pager: [phone] * Corrie Bradley RN - 11/02/2022 8:30 AM EDT ANGIO NURSING DATABASE Name: Brayan Jaramillo Date of : 1955 AGE: 67 y.o. Address: [address] [address] (home) Mobile: Telephone Information: Referring Provider: Sameer Llamas REASON FOR VISIT: Order Questions Answers What is the purpose of the study? Therapeutic and Diagnostic Reason for exam and clinical history: Recurrent R pleural effusion, likely 2/2 aortic stenosis Is the patient on anticoagulant / antiplatelet therapy ? DOAC (Direct Oral Anticoagulant) Is the patient taking any anticoagulants and/or antiplatelet meds? Yes Is patient awake, alert, and consentable? Yes Does patient need assist to stand? Yes Does Patient have any mobility limitations (e.g. spinal precautions) No Does patient require constant supervision? No Is patient over 450 lbs (200 kg) No Does patient have a pacemaker? No Does patient have a Chest Tube? No Is there a language / communication barrier? No Planned procedure: Right thoracentesis Labs to be performed day of procedure: No labs Sedation: No Sedation Prophylactic antibiotic : None Contrast: No contrast Additional medications for procedure: Lidocaine Consent: Pending Medications to discontinue (and days held): None Case Urgency:: E- Elective IN-patient intervention within 3 days Allergies Allergen Reactions ??? Carboplatin ??? Penicillins Hives ??? Pollen Extracts Other (See Comments) rhinorrhea Pertinent PMH: Patient Active Problem List Diagnosis Code ??? Thymic carcinoma C37 ??? Pancytopenia D61.818 ??? Atrial fibrillation I48.91 ??? Essential hypertension I10 ??? Hypothyroidism E03.9 ??? Abnormal uterine bleeding N93.9 ??? Platelet disorder D69.1 Date/Procedure Meds Given/Comments 10/28/22 Right thoracentesis - 750 ml Local only ??11/02/22 Right thoracentesis - 1,000 mL Local only ? 0950 to procedure room 6 via stretcher. Sitting at edge of stretcher in tripod position over bedside table / pillow. All monitors, O2, safety strap in place. Meds per protocol. Laboratory Results: Lab Results Component Value Date INR 1.8 10/22/2022 Lab Results Component Value Date CREATININE 0.83 11/02/2022 Lab Results Component Value Date K 3.5 11/02/2022 Lab Results Component Value Date PLATELET 132 (L) 11/02/2022 * Shelby Blackmon RN - 11/02/2022 4:56 AM EDT OUTCOME EVALUATION NOTE: OUTCOME SUMMARY:Pt reported less swelling in lower legs.Denied sob.Remains on 02 at 2l/min n/c.Aware of possible thoracentesis for this am.Amulating to restroom with no respiratory distress noted PLAN MOVING FORWARD:Continue with o2 ,pain management and lasix. INDIVIDUALIZED FALL PREVENTION INTERVENTIONS: Patient-specific fall risk factors per assessment: [current deficits]: Lower leg weakness,o2 tubinglasix increasing fall risk Assistance [level of assistance required for transfers and ambulation]: Pt ambulated with stand by assist using walker Supervision [direct monitoring required during toileting and ADLs]: Surveillance [continuous indirect monitoring]: Patient-specific fall prevention interventions for sensory deficits provided, if applicable: CPG GOAL OUTCOME EVALUATION: * Niru Archer RN - 11/01/2022 6:35 PM EDT Patient Summary Reason for admission: Hematemesis, low H/H, and platelets, Relevant PMH: Thymic cancer, Afib, on elaquis, Hypothyroidism, depression, anxiety Significant 24 hour events: 11/01AM: A/Ox4, vss, 2L NC. Gave replacement potassium according to AUG. Uses purewick at night, up to toilet during the day. Repeat CXR done today with no changes reported, plan for repeat thoracentesis to right side. Physical therapy in to work with patient, recommendation for rehab placement. Action List Diurese - PO lasix Wound care BLE Encourage ambulation Plan for Right Thoracentesis * Mina Chavez, OT - 11/01/2022 2:57 PM EDT Occupational Therapy Treatment Note Treatment Number OT: 3 Patient Dx: Per MD note,??Brayan Jaramillo??is a 67 y.o.?female??admitted on 10/22/2022??w/ PMH ofstage IV??thymic cancer??(undergoing chemo??with permetrexed), atrial fibrillation, hypothyroidism,? 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 ?? Social History: Home Setup:??pt lives with her son, son's SO, and 2 grandchildren. Ramp to enter single level home.Bathroom has a claw foot tub, however she plans to have the bathroom renovated with a walk-in shower- uncertain of timeline in which this is to be completed Functional Status:??independent with most ADLs and sponge bathes at baseline- does not use claw foot tub. She ambulates with a 4WW indoors and uses a manual w/c outdoors, although daughter reports she will occasionally use w/c indoors as well.??She cleans and prepares simple meals. Has groceries delivered. 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 Precautions/Special Considerations: fall risk,??full code, port, AAT, low platelets, BLE wounds, riley, supplemental O2 (2 L) ?? Interval History: 10/28/22 thoracentesis yesterday with 750mL removed from R side Per Hospital Medicine note: oxygen requirement??at 2L NC ON,??turned off briefly this morning and sats to low 80s S: I am feeling better. I was really out of it the other day. O: Patient seen for skilled OT treatment, and demonstrated the following: ?? Self-care: ?? Pt able to don pants CTG A for stand-hike. ?? Pt able to doff pants Min A. ?? Pt able to perform toileting CTG A. ?? Pt able to perform standing grooming task at the sink CTG A to brush teeth and comb hair. ?? Functional Mobility: ?? Sit to stand: CTG A ?? Functional mobility: In/out of bathroom CTG A with FWW ?? Stand to sit: CTG A ?? Cognition: ?? Behavior / Mood: alert and cooperative ?? Alert and oriented to: person, place and time ?? Follows commands: 100% of the time ?? Attention: WFL ?? Safety awareness: WFL ?? Endurance: Fair ? Vitals: 89-96%; 91-104 bpm ?? Strength/ROM:B UE Pain: Pt reports minimal discomfort during session Education: Pt/family/caregiver education ongoing regarding: Role of occupational therapy/rehabilitation, Transfers, Assistive device/technique, Adaptive equipment training, ADL, Safety, Functional Mobility, Balance, Recommendations and Discharge planning. Staff Communication: Patient status, treatment, and mobility recommendations discussed with nursing/other staff. ASSESSMENT: Pt seen by OT for progression of POC with need of CTG A for functional mobility and c/ofatigue after standing to brush teeth and comb hair. Pt able to perform toileting for urination CTGA and don/doff pants Min A. She is more alert, receptive and motivated today for therapy. Pt will benefit from ongoing therapeutic interventions to achieve pt's and therapy goals Equipment needs at discharge: walker, front wheeled Anticipated Discharge Disposition: half-way facility Daily schedule / Staff Recommendations: ??? Staff Recommendations: ??? Utilize upright chair position using bed features or transfer to recliner chair as appropriate with CTG A and FWW, ambulate as tolerated 3x/day ??? Bathroom for toileting needs ??? Please encourage up to chair or seated EOB for meal times as able ??? Encourage participation in ADL's by providing set up A on tray table and physical assist only as needed ? ? Frequent orientation verbally & visually ? ? Promote normalcy by encouraging participation in common daily tasks & leisure activities byproviding set up assist ? ? Encourage use of coping & calming strategies ??? Give choices when possible to support feelings of autonomy ??? Keep glasses, hearing aides, cell phones, tablets, etc within reach ??? Facilitate a normal sleep-wake cycle ??? Provide brief, clear instruction from one source at a time ??? Reduce extraneous stimulation ??? Provide calming music, favorite TV programs, magazines or newspapers Occupational Therapy Goals: To be achieved by??11/09/2022 (Progressing): Pt will perform all functional??mobility??with supervision??and assistive device as needed. Pt will stand at sink level with??supervision??for >2??minutes for ADLs. Pt will complete??seated/standing sponge bathing with supervision. Pt will complete LB dressing with??supervision??and AE as needed. Pt will complete all aspects of toilet routine (transfer, hygiene, clothing management) with??supervision. Pt will integrate a coping strategy for anxiety management with??min??verbal cues. Therapy Frequency (OT): 2-4 times/wk Total Minutes, Occupational Therapy: 20 ([id number] TF) Pager: [phone] MINA CHAVEZ, OT 11/01/2022 Occupational Therapy Rehabilitation Department * Daniel Green MD - 11/01/2022 2:04 PM EDT [facility] Medicine Progress Note Admit Date: 10/22/2022 Hospital Day 10 days Patient ID: Brayan Jaramillo is a 67 y.o. 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 Now with new persistent O2 requirement and newly discovered severe . Interval events: - feels relatively well this morning, no complaints - oxygen requirement at 2L NC ON - reports legs feel much better compared with admission Physical Exam: Last Set of Vitals and range of vitals over past 24 hours: Last value Range last 24 hrs Temperature Temp: 37.2 ??C (99 ??F) Temp: [36.3 ??C (97.3 ??F)-37.2 ??C (99 ??F)] Heart Rate Heart Rate: 75 Heart Rate: [75] Blood Pressure BP: 119/78 BP: (113-125)/(66-78) Respiratory Rate Resp: 20 Resp: [18-22] SpO2 SpO2: 96 % SpO2: [91 %-97 %] Physical Exam Gen: NAD. A&Ox4. Sitting up in bed. HEENT: NC/AT, no scleral icterus. Several teeth missing (side effect of chemo per pt) CV: Irregularly irregular rhythm. Normal rate. 3/6 murmur best appreciated over LUSB. Pulm: no increased WOB on 2L NC Abd: Nondistended, nontender. Reducible umbilical hernia present Ext: Minimal edema in lower legs & thighs today, significantly improved from prior exams Neuro: alert and appropriate. Non-focal. Grossly intact. Psych: cooperative, calm, pleasant Laboratory (Last 24 Hours): Last 3 wbc, hgb, hct plt Recent Labs 11/01/22 0420 10/31/22 0145 10/30/22 0116 WBC 7.1 7.0 6.6 HGB 7.5* 7.5* 7.5* HCT 25.0* 24.7* 24.6* PLATELET 131* 126* 101* Last 3 Lytes Recent Labs 11/01/22 0420 10/31/22 1423 10/31/22 0145 NA 143 143 144 K 3.5 3.4* 3.0* CL 93* 95* 95* CO2 44* 43* 44* BUN 27* 30* 36* CREATININE 0.83 0.86 0.88 Last 3 LFTs Recent Labs 10/22/22 2310 AST 23 ALT 6 ALKPHOS 49 BILITOT 1.5* BILIDIR 0.7* Last Ca, Mg, Phos Recent Labs 11/01/22 0420 CALCIUM 8.4* MAGNESIUM 0.69 Microbiology: No pertinent positives Radiology: XR Chest PA & Lateral (Generic) Final Result No decrease in size of right pleural effusion with size intrafissural components. Stable smaller left pleural effusion. No pneumothorax. Thank you for letting us participate in the care of this patient. If you are a health care provider and have any questions regarding this report, please contact the number below. For patients who have questions please contact the health foster care worker that requested your imaging first. Electronically signed by: Saul Plunkett MD, [facility] ([phone]), at 11/01/2022 1:36 PM IR Thoracentesis Right Final Result XR Chest One View Final Result 1. Unchanged moderate right and small left pleural effusions. 2. Persistent mild pulmonary vascular congestion. 3. The bilateral lower lobe opacities are nonspecific and likely represent a combination of effusion and atelectasis however a component of pneumonia is difficult to exclude particularly at the right lung base. Thank you for letting us participate in the care of this patient. If you are a health care provider and have any questions regarding this report, please contact the number below. For patients who have questions please contact the health foster care worker that requested your imaging first. Other Studies: TTE 10/26/22: Interpretation Summary There is severe aortic stenosis. [...] pericardial effusion. See report for additional findings. Assessment: Brayan Jaramillo is a 67 y.o. 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 ?? 11/01: ITP responded appropriately to steroids and platelets continue to recover nicely. Brayan responded well to 40 oral lasix yesterday. Today will try 20 oral lasix and resume home amiloride for potassium. We will continue to monitor kidney function with Cr. Also CTM contraction alkalosis. Repeat CXR ordered given ongoing oxygen requirement. Also reached out to PT/OT to continue working on mobilization and think about best discharge plan. Will also continue to assess for symptom burden of now that we suspect she is more euvolemic. PLAN: #Newly discovered severe aortic stenosis #Acute hypoxic respiratory failure secondary to pulmonary edema, pleural effusions, atelectasis, improving #Anasarca possibly 2/2 prior chemotherapy meds - 10/22 CT chest & CXR from [facility] bilateral pleural effusions, and atelectasis - 10/26 TTE with severe - 10/28 R thoracentesis with 750cc removed, transudative - Repeat CXR ordered for today - continue supplemental oxygen - continue oral lasix - resume home amiloride today - appreciate cards recs #atrial fibrillation - continue Diltiazem 180 mg qd (dose reduced from home 240 mg qd) - continue home Eliquis #Severe thrombocytopenia 2/2 ITP, resolved #Hematemesis vs hemoptysis, resolved #Anemia, acute on chronic - appreciate heme onc assistance - s/p dexamethasone 40 mg qd for 4 days (10/23-10/26) - resume home apixaban (for A fib) - once daily PO PPI #KALEIGH, likely cardiorenal, resolved - avoid nephrotoxins - continue to trend Cr - encourage PO intake?? #Contraction alkalosis 2/2 aggressive diuresis #Hypokalemia 2/2 aggressive diuresis - K repletion as needed - continue to monitor BMP, lytes ?? #Home medications - continue home levothyroxine - continue home paroxetine 20 mg ?? Routine Diet: Regular diet DVT: Eliquis 5 BID GI: PPI daily Dispo: pending clinical course CODE: Attempt Cardiopulmonary Resuscitation - Inpatient Daniel Green MD 11/01/2022 [facility] Medicine [place] Team Pager [phone] Associated attestation - Douglas Escobedo MD - 11/01/2022 2:59 PM EDT Attending Attestation and Certification Please see Daniel Green MD's note for details of the patient history of presentation and data. I have discussed, reviewed and agree with the documented History, Physical findings, Assessment and Plan of care. Continues to diurese, even with decreased lasix dose. However still hypoxemic requiring supplemental O2. Will obtain repeat CXR and consider repeat thoracentesis if effusion present. Will restart herhome amiloride and monitor blood pressures and BMP. I have examined the patient myself and personally reviewed all studies. In addition, I certify thatI am a D-H credentialed attending provider with admitting privileges and that the patient meets or has met medical necessity to require an inpatient IPI level of care meeting a minimum of two midnights or is on the [facility] inpatient only procedure list (status C) due to: acute respiratory compromise and/or hypoxia requiring assessment every 4 hours and the ability to respond immediately to the patient's need * Senait Baez, [place] [facility] - 11/01/2022 10:17 AM EDT Physical Therapy Note Treatment Number PT: 3 Patient profile: Brayan Alonsoll??is a 67 y.o.??female??w/ PMH of 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 Interval History: Per last hospital medicine note on 10/31/2022 - feels relatively well this morning, no complaints - oxygen requirement at 2L NC ON, turned off briefly this morning and sats to low 80s - reports legs feel much better compared with admission Social History: Home set-up: Lives??with son, DIL, and 2 grandchildren in a single level home in [place], [place] Stairs:??Ramp to enter Bathroom Set-up:??Clawfoot tub, has been sponge bathing due to difficulty getting in/out of the tub. Plans to get bathroom renovated to have a walk-in shower Baseline Mobility:??Ambulates with a 4WW inside and a w/c outside or when fatigued (typically dependently pushed with the w/c). Independent with most I/ADLs, including cleaning, and simple meals. Family assists with laundry, checking the mail, and running errands. Doesn't wear O2 at baseline. Equipment at home:??4WW, manual w/c, licensed audiologist Fall history:??Denies?? Precautions/Special Considerations: Full Code, High risk for skin breakdown, At risk to Fall, Low Platelets, BLE wounds Lines: Nikhil, PIV,??Riley, Supplemental Oxygen (4L NC),??Implanted port Activity Orders:??Activity as tolerated?? Diet:??Regular Diet Mobility and Positioning Recommendations: ?? Pt to utilize 1 assist and FWW for ambulation and transfers w/ staffing analyst as able ?? Pt encouraged to ambulate to BR for voiding. ?? Please encourage up to chair for meal times as able. Subjective: I'm still here kicking, just not very high Objective: Patient seen for physical therapy and demonstrated the following: Pain: Pt reported slight discomfort in L knee while ambulating, did not rate, did not limit participationw/ therapy Vital Signs: Pt had minor desat on 2L NC down to 87%, recovered w/ rest breaks up to 92%. HR and BP WNL throughout session Cognition/Vision: Pt was alert and cooperative w/ therapy Bed Mobility: Supine to Sit: supervised, HOB elevated, use of bed rails Sit to Supine: N/A, session ended w/ pt in recliner chair Transfers: Sit to Stand: contact guard assist, minimum assist, Performed from EOB, toilet and black visitor chair, no VCs for hand placement, required increased assist from lower surfaces using rolling walker Stand to Sit: contact guard assist, fair eccentric control using rolling walker Gait: Distance: 10 ft to BR, 10 ft to door + 30 ftx2, seated rest breaks required Device used: rolling walker Level of assist: supervised, contact guard assist, chair follow, line management Gait mechanics: min trunk sway, decreased gait speed, step length and foot clearance, slight antalgic gait noted on L d/t knee pain Stairs: N/A Balance: Sitting Static: Good Sitting Dynamic: Fair Standing Static: Fair w/ FWW Standing Dynamic / Gait: Fair w/ FWW Education: Pt educated on importance of continued participation w/ therapy and mobilization OOB, transfer training, gait training, energy conservation, therex Pt left in bedside recliner chair, with all needs met and with call wallace in reach RN aware following visit. Assessment: Braayn Jaramillo was seen today for physical therapy treatment session for continuation of POC. Pt continues demonstrate decreased endurance and strength. Pt was able to ambulate to the [facility] perform ADLs and get a standing weight before needing a rest break, however did have a minor desat. Pt appears to have good insight to her limitations and approrpiately requested rest breaks. Encouraged pt to mobilize more often in the hallway w/ MT, to which she was agreeable, will continue towork w/ pt while in-house to progress towards functional goals. Pt will benefit from ongoing therapeutic interventions to achieve therapy goals. Discharge Recommendations: Based on the current findings, Anticipated Discharge Disposition (PT): swing bed rehabilitation facility when medically ready for hospital discharge. Consult Recommendations: No other consults recommended at this time. Equipment needs: Anticipated Equipment Needs at Discharge (PT): to be determined Physical Therapy Goals: To be achieved by??11/19/2022: Ongoing ?? 1. Pt. to demonstrate knowledge of safety limitations and precautions and will appropriately request assistance for functional activities and to mobilize. 2. Pt. to demonstrate understanding of appropriate therapeutic exercises. 3. Pt. to perform bed mobility??with supervision??with HOB flat. 4. Pt. to perform??sit<>stand??transfers with modified independence??using a front wheeled walker. ?? 5. Pt. to ambulate??75??feet with modified independence??using a front wheeled walker. 6. Pt to propel wheelchair x??50??ft. using??BUE. 7. Pt will tolerate progression towards upright with stable vital signs. 8. Family or caregiver to demonstrate understanding of therapeutic interventions to support the care of the patient. Plan: Therapy Frequency (PT): 2-4 times/wk for therapy interventions as outlined in initial evaluation. Patient agrees with plan as stated. Time IN / OUT: [id number] Total Minutes, Physical Therapy: 37 Billing Code: TEF 2 Senait Baez PTA Pager: [phone] Physical Therapy Inpatient Rehabilitation Department * Viola Flood RN - 10/31/2022 6:35 PM EDT Illness Severity [x] Stable [] Watcher [] Unstable Patient Summary Reason for admission: Hematemesis, low H/H, and platelets, Relevant PMH: Thymic cancer, Afib, on elaquis, Hypothyroidism, depression, anxiety Significant 24 hour events: 10/31AM: A/Ox4, vss, 2L NC. Gave replacement potassium according to AUG. Pt had BM this AM. Uses purewick at night. PO lasix given this afternoon. Resting often today between care. Action List Diurese - PO lasix Wound care BLE Encourage ambulation Encourage PO intake * Daniel Green MD - 10/31/2022 10:45 AM EDT Hospital Medicine Progress Note Admit Date: 10/22/2022 Hospital Day 9 days Patient ID: Brayan Jaramillo is a 67 y.o. 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 Now with new persistent O2 requirement and newly discovered severe . Interval events: - feels relatively well this morning, no complaints - oxygen requirement at 2L NC ON, turned off briefly this morning and sats to low 80s - reports legs feel much better compared with admission Physical Exam: Last Set of Vitals and range of vitals over past 24 hours: Last value Range last 24 hrs Temperature Temp: 37.5 ??C (99.5 ??F) Temp: [37 ??C (98.6 ??F)-37.5 ??C (99.5 ??F)] Heart Rate Heart Rate: 89 Heart Rate: [85-89] Blood Pressure BP: 116/75 BP: (116-130)/(68-86) Respiratory Rate Resp: 18 Resp: [18] SpO2 SpO2: 94 % SpO2: [92 %-98 %] Physical Exam Gen: NAD. A&Ox4. Sitting up in bed. HEENT: NC/AT, no scleral icterus. Several teeth missing (side effect of chemo per pt) CV: Irregularly irregular rhythm. Normal rate. 3/6 murmur best appreciated over LUSB. Pulm: clear to ascultation bilaterally in the anterior lung kim. Abd: Nondistended, nontender. Reducible umbilical hernia presen Ext: Minimal edema in lower legs & thighs today, significantly improved from prior exams Neuro: alert and appropriate. Non-focal. Grossly intact. Psych: cooperative, calm, pleasant Laboratory (Last 24 Hours): Last 3 wbc, hgb, hct plt Recent Labs 10/31/22 0145 10/30/22 0116 10/29/22 0040 WBC 7.0 6.6 4.2 HGB 7.5* 7.5* 7.2* HCT 24.7* 24.6* 22.7* PLATELET 126* 101* 58* Last 3 Lytes Recent Labs 10/31/22 0145 10/30/22 0116 10/29/22 0040 NA 144 142 142 K 3.0* 3.3* 3.8 CL 95* 95* 97* CO2 44* 40* 35* BUN 36* 50* 57* CREATININE 0.88 0.94 1.09 Last 3 LFTs Recent Labs 10/22/22 2310 AST 23 ALT 6 ALKPHOS 49 BILITOT 1.5* BILIDIR 0.7* Last Ca, Mg, Phos Recent Labs 10/31/22 0145 CALCIUM 8.3* MAGNESIUM 0.77 Microbiology: No pertinent positives Radiology: IR Thoracentesis Right Final Result XR Chest One View Final Result 1. Unchanged moderate right and small left pleural effusions. 2. Persistent mild pulmonary vascular congestion. 3. The bilateral lower lobe opacities are nonspecific and likely represent a combination of effusion and atelectasis however a component of pneumonia is difficult to exclude particularly at the right lung base. Thank you for letting us participate in the care of this patient. If you are a health care provider and have any questions regarding this report, please contact the number below. For patients who have questions please contact the health foster care worker that requested your imaging first. Electronically signed by: Saul Lemus MD, [facility] ([phone]), at 10/26/2022 12:10 PM Other Studies: TTE 10/26/22: Interpretation Summary There is severe aortic stenosis. [...] pericardial effusion. See report for additional findings. Assessment: Brayan Jaramillo is a 67 y.o. 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 ?? 10/31: ITP responded appropriately to steroids and platelets continue to recover nicely, up to 126 today. Brayan responded well to IV diuresis and her weight has dropped significantly. Edema on exam isalso minimal today, which is greatly improved. She is developing lab values consistent with contraction alkalosis (bicarb 44 today), so will level down amount of diuresis and try oral furosemide today. Afternoon BMP to assess contraction alkalosis and effect of K repletion. Tomorrow we may consideranother CXR if she continues to have persistent O2 requirement. Will also continue to assess for symptom burden of now that we suspect she is more euvolemic. Hopeful that PT/OT can see her again tomorrow to help decide the best disposition plan for her. PLAN: #Newly discovered severe aortic stenosis #Acute hypoxic respiratory failure secondary to pulmonary edema, pleural effusions, atelectasis, improving #Anasarca possibly 2/2 prior chemotherapy meds - 10/22 CT chest & CXR from [facility] bilateral pleural effusions, and atelectasis - 10/26 TTE with severe - 10/28 R thoracentesis with 750cc removed, transudative - continue supplemental oxygen - transition to oral lasix today - appreciate cards recs - holding home amiloride, will consider restarting given low K #atrial fibrillation - continue Diltiazem 180 mg qd (dose reduced from home 240 mg qd) - continue home Eliquis #Severe thrombocytopenia 2/2 ITP, resolved #Hematemesis vs hemoptysis, resolved #Anemia, acute on chronic - appreciate heme onc assistance - s/p dexamethasone 40 mg qd for 4 days (10/23-10/26) - resume home apixaban (for A fib) - once daily PO PPI #KALEIGH, likely cardiorenal, resolved - avoid nephrotoxins - continue to trend Cr - encourage PO intake?? #Contraction alkalosis 2/2 aggressive diuresis #Hypokalemia 2/2 aggressive diuresis - K repletion as needed - continue to monitor BMP, lytes ?? #Home medications - continue home levothyroxine - continue home paroxetine 20 mg ?? Routine Diet: Regular diet DVT: Eliquis 5 BID GI: PPI daily Dispo: pending clinical course CODE: Attempt Cardiopulmonary Resuscitation - Inpatient Daniel Green MD 10/31/2022 Associated attestation - Douglas Escobedo MD - 10/31/2022 7:36 PM EDT Attending Attestation and Certification Please see Daniel Green MD's note for details of the patient history of presentation and data. I have discussed, reviewed and agree with the documented History, Physical findings, Assessment and Plan of care. Continues to wean O2 although not as rapidly as at first. Will pull back on diuresis as evidence ofcontraction on BMP. If still requiring oxygen tomorrow will consider repeat CXR as she may have more fluid that could be drained. I have examined the patient myself and personally reviewed all studies. In addition, I certify thatI am a D-H credentialed attending provider with admitting privileges and that the patient meets or has met medical necessity to require an inpatient IPI level of care meeting a minimum of two midnights or is on the [facility] inpatient only procedure list (status C) due to: acute respiratory compromise and/or hypoxia requiring assessment every 4 hours and the ability to respond immediately to the patient's need * Apurva Pina RN - 10/31/2022 6:51 AM EDT Patient Summary Significant 24 hour events: 10/30PM: Assumed care @ 0300 - pt resting between nursing care. Gave replacement potassium accordingto AUG. This RN paged MD about lab recheck order - no present at this time. Pt had BM this AM. Action List Diurese - PO lasix Wound care BLE Encourage ambulation Encourage PO intake * Gloria Millan RN - 10/31/2022 2:01 AM EDT OUTCOME EVALUATION NOTE: OUTCOME SUMMARY: Assumed care at 1900. VSS on 2L NC. A&Ox4. Denies pain at this time. Voiding adequate amounts of urine. External catheter placed to ensure adequate rest as the patient was up frequently the nightbefore to urinate. One episode of nausea. Zofran given with good effect. Call wallace within reach. Safety measures maintained. PLAN MOVING FORWARD: Wean O2. PO lasix BLE wound care Discharge planning INDIVIDUALIZED FALL PREVENTION INTERVENTIONS: Patient-specific fall risk factors per assessment: [current deficits]: Weakness, lines/tubes Assistance [level of assistance required for transfers and ambulation]: SBA to commode Supervision [direct monitoring required during toileting and ADLs]: Hands on Surveillance [continuous indirect monitoring]: Masimo, hourly rounding Patient-specific fall prevention interventions for sensory deficits provided, if applicable: [X] N/A CPG GOAL OUTCOME EVALUATION: * Viola Flood RN - 10/30/2022 6:45 PM EDT Illness Severity [x] Stable [] Watcher [] Unstable Patient Summary Reason for admission: Hematemesis, low H/H, and platelets, Relevant PMH: Thymic cancer, Afib, on elaquis, Hypothyroidism, depression, anxiety Significant 24 hour events: 10/30AM: A/Ox4, vss on 2L NC. Urinating frequently throughout the day. Up to bedside commode with assistx1. Pt with decreased appetite throughout day. Encouraged fluid intake and eating. Action List Diurese - PO lasix Wound care BLE Encourage ambulation Encourage PO intake * Mendy Johnson RN - 10/30/2022 3:33 PM EDT Several attempts to get choices for SNF from patient and family without success. * Ngueyn Mckeon - 10/30/2022 2:13 PM EDT Nutrition Services Note - Low Nutrition Acuity Brayan Jaramillo is a 67 y.o. female Reason for intervention: hospital day 9 Nutrition Plan: Continue diet order Encourage good PO Lasix Kiwi Allergy Added snack 1x/day Added drink 1x/day Monitor weight Patient scheduled for a hospital day 9 nutrition evaluation. Miniature Set Builder met with pt at bedside. Per documentation patient has good to excellent PO intakes recorded at 50-100% over the past 4 days. According to dining services software they have ordered an average ~2114kcals/day within the same duration. Pt shares a good appetite and eats more than 50% of meals received except for today d/t lack of sleep from medications. Pt shares that her appetite is normal, she just can't finish her meals becausethe serving size is too big. Pt requested to receive pretzels, however they are restricted in nutrition software, writer producer added chips 1x/day for snack. Kitchen to continue to send desired food selections and snack 1x/day and francine hal or apple juice 1x/day per pt request. Pt asked to receive daily menu options, writer producer spoke with diet office who will send her a menu daily. Weight loss observed pergraph, not clinically significant d/t diuretic. Pt shares edema and fluid loss that have caused herwt to fluctuate but reports a UBW of 240lbs. Please update and trend wts to allow for ongoing assessment of weight changes. Clinical Nutrition to monitor and follow. Active Orders Diet Regular diet Frequency: Effective Now Number of Occurrences: Until Specified Admit Weight: 110.2 kg Estimated body mass index is 33.25 kg/m?? as calculated from the following: Height as of this encounter: 172.7 cm (5' 8). Weight as of this encounter: 99.2 kg (218 lb 11.1 oz). Wt Readings from Last 5 Encounters: 10/29/22 99.2 kg (218 lb 11.1 oz) 10/08/22 107.5 kg (237 lb) 09/16/22 110.3 kg (243 lb 3.2 oz) 07/21/22 112.3 kg (247 lb 8 oz) 06/23/22 113.2 kg (249 lb 8 oz) Weight loss: not clinically significant Appetite: good to excellent 50-100% Food allergies:kiwi Chewing/Swallowing difficulty: none Nausea/Vomiting: no nausea and no vomiting Last Bowel Movement: 10/30/22 Nguyen Mckeon Manager Leadership Development * Dennise Peres MD - 10/30/2022 11:11 AM EDT Hospital Medicine Progress Note Admit Date: 10/22/2022 Hospital Day 8 days Patient ID: Brayan Jaramillo is a 67 y.o. 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 Now with new persistent O2 requirement and newly discovered severe . Interval events: - feels well this morning, no complaints - oxygen requirement decreased to 1L NC, continues to respond nicely to IV Lasix - reports legs feel much better compared with admission Physical Exam: Last Set of Vitals and range of vitals over past 24 hours: Last value Range last 24 hrs Temperature Temp: 37.2 ??C (99 ??F) Temp: [36.5 ??C (97.7 ??F)-37.2 ??C (99 ??F)] Heart Rate Heart Rate: 92 Heart Rate: [87-92] Blood Pressure BP: 131/81 BP: (119-133)/(72-83) Respiratory Rate Resp: 18 Resp: [18] SpO2 SpO2: 94 % SpO2: [88 %-99 %] Physical Exam Gen: NAD. A&Ox4. Sitting up in bed. HEENT: No scleral icterus. Moist mucous membranes. CV: Irregularly irregular rhythm. Normal rate. 3/6 murmur best appreciated over LUSB. Pulm: clear to ascultation bilaterally in the anterior & posterior lung kim. Abd: Nondistended, nontender Ext: Continues to have pitting edema above the knees bilaterally, but significantly improved from prior exams Neuro: alert and appropriate. Non-focal. Grossly intact. Psych: cooperative, calm, pleasant Laboratory (Last 24 Hours): Last 3 wbc, hgb, hct plt Recent Labs 10/30/22 0116 10/29/22 0040 10/28/22 0450 WBC 6.6 4.2 3.8* HGB 7.5* 7.2* 7.0* HCT 24.6* 22.7* 22.5* PLATELET 101* 58* 43* Last 3 Lytes Recent Labs 10/30/22 0116 10/29/22 0040 10/28/22 0450 NA 142 142 137 K 3.3* 3.8 4.1 CL 95* 97* 97* CO2 40* 35* 30 BUN 50* 57* 62* CREATININE 0.94 1.09 1.27* Last 3 LFTs Recent Labs 10/22/22 2310 AST 23 ALT 6 ALKPHOS 49 BILITOT 1.5* BILIDIR 0.7* Last Ca, Mg, Phos Recent Labs 10/30/22 0116 CALCIUM 8.3* MAGNESIUM 0.72 Microbiology: No pertinent positives Radiology: IR Thoracentesis Right Final Result XR Chest One View Final Result 1. Unchanged moderate right and small left pleural effusions. 2. Persistent mild pulmonary vascular congestion. 3. The bilateral lower lobe opacities are nonspecific and likely represent a combination of effusion and atelectasis however a component of pneumonia is difficult to exclude particularly at the right lung base. Thank you for letting us participate in the care of this patient. If you are a health care provider and have any questions regarding this report, please contact the number below. For patients who have questions please contact the health foster care worker that requested your imaging first. Electronically signed by: Saul Lemus MD, [facility] ([phone]), at 10/26/2022 12:10 PM Other Studies: TTE 10/26/22: Interpretation Summary There is severe aortic stenosis. [...] pericardial effusion. See report for additional findings. Assessment: Brayan Jaramillo is a 67 y.o. 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 ?? 10/30: ITP responded appropriately to steroids and platelets continue to recover nicely, up to 100 today. Brayan continues to respond to IV Lasix, and oxygen requirement is improving today. Will continue to diurese and assess for symptom burden of once she is more euvolemic. Otherwise, continuing supportive care. ?? PLAN: #Newly discovered severe aortic stenosis #Acute hypoxic respiratory failure secondary to pulmonary edema, pleural effusions, atelectasis, improving #Anasarca possibly 2/2 prior chemotherapy meds - 10/22 CT chest & CXR from [facility] bilateral pleural effusions, and atelectasis - 10/26 TTE with severe - 10/28 R thoracentesis with 750cc removed, transudative - continue supplemental oxygen - continue aggressive diuresis today - appreciate cards recs - holding home amiloride #atrial fibrillation - continue Diltiazem 180 mg qd (dose reduced from home 240 mg qd) - continue home Eliquis #Severe thrombocytopenia 2/2 ITP, resolved #Hematemesis vs hemoptysis, resolved #Anemia, acute on chronic - appreciate heme onc assistance - s/p dexamethasone 40 mg qd for 4 days (10/23-10/26) - resume home apixaban (for afib) - once daily PO PPI #KALEIGH, likely cardiorenal, resolved - avoid nephrotoxins - continue to trend Cr - encourage PO intake? #Home medications - continue home levothyroxine - continue home paroxetine 20 mg ?? Routine Diet: Regular diet DVT: Eliquis 5 BID GI: PPI daily Dispo: pending clinical course CODE: Attempt Cardiopulmonary Resuscitation - Inpatient Dennise Peres MD 10/30/2022 Associated attestation - Escobedo, Douglas Young MD - 10/30/2022 11:58 AM EDT Attending Attestation and Certification Please see Dennise Peres MD's note for details of the patient history of presentation and data. I have discussed, reviewed and agree with the documented History, Physical findings, Assessment and Plan of care. Oxygen requirement decreasing with ongoing diuresis. Plan for additional IV diuresis today. Will follow BMP and continue to monitor CBC given recent history of ITP. I have examined the patient myself and personally reviewed all studies. In addition, I certify thatI am a D-H credentialed attending provider with admitting privileges and that the patient meets or has met medical necessity to require an inpatient IPI level of care meeting a minimum of two midnights or is on the [facility] inpatient only procedure list (status C) due to: acute respiratory compromise and/or hypoxia requiring assessment every 4 hours and the ability to respond immediately to the patient's need * Evelina Price RN - 10/29/2022 5:16 PM EDT Patient Summary Reason for admission: Hematemesis, low H/H, and platelets, Relevant PMH: Thymic cancer, Afib, on elaquis, Hypothyroidism, depression, anxiety Significant 24 hour events: 10/29 AM: AOx4. VSS on 4L NC, afebrile. Able to wean down to 1.5 L. Tele d/c. 80 mg of IV lasix given, adequate urinary output. Riley removed @ 1430 - able to void. Port dressing and needle changed per policy. OOB with mobility tech - up in chair for lunch. Resting between nursing care. Action List Diurese - PO lasix Wound care BLE Encourage ambulation * Lady Woods RN - 10/29/2022 3:40 PM EDT Per MD, plan for patient to be medically ready for discharge to Rehab on 11/01. Miniature Set Builder spoke with Brayan regarding discharge planning who declines to provide Choices for Rehab. Brayan gave permission for writer producer to speak with daughter, Yoly, , regarding discharge planning. Unable to get through or leave message as mail box indicated full. CM to continue to assist with discharge planning. Lady Woods RN [facility] Lens Matcher/Medicine Office of Care Management Pager: [phone] * Mina Chavez OT - 10/29/2022 1:15 PM EDT Occupational Therapy Note Document Type: contact Total Minutes, Occupational Therapy: 0 Reason: Pt declining OT due to fatigue. We will f/u Tuesday with continuing OT. Pager: [phone] MINA CHAVEZ OT 10/29/2022 Occupational Therapy Rehabilitation Department * Daniel Green MD - 10/29/2022 10:44 AM EDT Hospital Medicine Progress Note Admit Date: 10/22/2022 Hospital Day 7 days Patient ID: Brayan Jaramillo is a 67 y.o. 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 Interval events: - feels well this morning, no complaints - no further signs of bleeding - platelet count continues to improve - thoracentesis yesterday with 750mL removed from R side - good response to IV lasix Physical Exam: Last Set of Vitals and range of vitals over past 24 hours: Last value Range last 24 hrs Temperature Temp: 36.5 ??C (97.7 ??F) Temp: [36.1 ??C (97 ??F)-36.6 ??C (97.9 ??F)] Heart Rate Heart Rate: 85 Heart Rate: [84-92] Blood Pressure BP: 133/82 BP: (109-145)/(58-90) Respiratory Rate Resp: 20 Resp: [18-20] SpO2 SpO2: 96 % SpO2: [91 %-99 %] Physical Exam Gen: NAD. A&Ox4. Sitting up in bed. HEENT: No scleral icterus. Moist mucous membranes. CV: Irregularly irregular rhythm. Normal rate. 3/6 murmur best appreciated over LUSB. Pulm: clear to ascultation bilaterally in the anterior & posterior lung kim. Abd: Significant anasarca with hard, indurated texture over abdomen. Nontender to palpation. Ext: significant non-pitting edema with tenderness and fausto discoloration in bilateral lower extremities. Also has similarly textured patches of indurated skin on forearms. Neuro: alert and appropriate. Non-focal. Grossly intact. Psych: cooperative, calm, pleasant Laboratory (Last 24 Hours): Last 3 wbc, hgb, hct plt Recent Labs 10/29/22 0040 10/28/22 0450 10/27/22 0340 WBC 4.2 3.8* 4.1 HGB 7.2* 7.0* 7.5* HCT 22.7* 22.5* 23.8* PLATELET 58* 43* 27* Last 3 Lytes Recent Labs 10/29/22 0040 10/28/22 0450 10/27/22 0340 NA 142 137 136 K 3.8 4.1 4.4 CL 97* 97* 98 CO2 35* 30 29 BUN 57* 62* 60* CREATININE 1.09 1.27* 1.34* Last 3 LFTs Recent Labs 10/22/22 2310 AST 23 ALT 6 ALKPHOS 49 BILITOT 1.5* BILIDIR 0.7* Last Ca, Mg, Phos Recent Labs 10/29/22 0040 CALCIUM 8.5 MAGNESIUM 0.83 Microbiology: No pertinent positives Radiology: IR Thoracentesis Right Final Result XR Chest One View Final Result 1. Unchanged moderate right and small left pleural effusions. 2. Persistent mild pulmonary vascular congestion. 3. The bilateral lower lobe opacities are nonspecific and likely represent a combination of effusion and atelectasis however a component of pneumonia is difficult to exclude particularly at the right lung base. Thank you for letting us participate in the care of this patient. If you are a health care provider and have any questions regarding this report, please contact the number below. For patients who have questions please contact the health foster care worker that requested your imaging first. Electronically signed by: Saul Lemus MD, [facility] ([phone]), at 10/26/2022 12:10 PM Other Studies: TTE 10/26/22: Interpretation Summary There is severe aortic stenosis. [...] pericardial effusion. See report for additional findings. Assessment: Brayan Jaramillo is a 67 y.o. 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 ?? 10/29: Although she came in for low platelets, this has now recovered. The larger issue is her ongoing new oxygen requirement, likely 2/2 severe vs side effect of prior chemotherapy. Thoracentesis yesterday with 750cc removed from R side. Fluid studies appear transudative. Still on 4L NC. When I turned it off this morning at bedside while she was asleep, went from SpO2 94->86 over 2 minutes,so I turned it back on. She likely needs continued diuresis and additional time to recover. Will continue to mobilize and work with PT as able. ?? PLAN: #Acute hypoxic respiratory failure secondary to pulmonary edema, pleural effusions, atelectasis #Anasarca possibly 2/2 prior chemotherapy meds #Newly discovered severe aortic stenosis - 10/22 CT chest & CXR from [facility] bilateral pleural effusions, and atelectasis - 10/26 TTE with severe - 10/28 R thoracentesis with 750cc removed, transudative - continue supplemental oxygen - continue aggressive diuresis today - appreciate cards recs - holding home amiloride #Severe thrombocytopenia 2/2 ITP #Hematemesis vs hemoptysis, resolved #Anemia, acute on chronic - appreciate heme onc assistance - s/p dexamethasone 40 mg qd for 4 days (10/23-10/26) - resume home apixaban (for afib) - once daily PO PPI #KALEIGH, likely pre-renal, improving - avoid nephrotoxins - continue to trend Cr - encourage PO intake? #Home medications - continue home levothyroxine - continue home diltiazem (240 mg XR converted / reduced to 45 mg q6hr) - continue home paroxetine 20 mg - resume home apixaban ?? Routine Diet: Regular diet DVT: Eliquis 5 BID GI: PPI daily Dispo: pending clinical course CODE: Attempt Cardiopulmonary Resuscitation - Inpatient Daniel Green MD 10/29/2022 Associated attestation - Saul Randolph III, MD - 10/29/2022 3:37 PM EDT Attending Attestation and Certification Please see Daniel Green MD's note for details of the patient history of presentation and data. I have discussed, reviewed and agree with the documented History, Physical findings, Assessment and Plan of care. I have examined the patient myself and personally reviewed all studies. In addition, I certify thatI am a D-H credentialed attending provider with admitting privileges and that the patient meets or has met medical necessity to require an inpatient IPI level of care meeting a minimum of two midnights or is on the [facility] inpatient only procedure list (status C) due to: ITP * Christie Mackey RN - 10/28/2022 5:45 PM EDT Illness Severity [x] Stable [] Watcher [] Unstable Patient Summary Reason for admission: Hematemesis, low H/H, and platelets, Relevant PMH: Thymic cancer, Afib, on elaquis, Hypothyroidism, depression, anxiety Significant 24 hour events: 10/28AM: A&Ox4, VSS on 4L NC. Tele continued showing AFIB, rate in the 70s. 80mg of IV lasix given, adequate output from riley. K and Mag replacement given today. R Thoracentesis completed this afternoon, see results. Worked with PT this morning. Daughter at bedside. Resting between nursing care. Action List Diurese - PO lasix Wound care BLE Discharge Plan: SNF? Home meds in Rx [] Belongings in safe [] Consults: oncology PT [x] OT [x] MAGNETIC TESTER [] Last Flu vaccine: Last Covid Test Result: Situational Awareness & Contingency Planning Do not shut door - pt is claustrophobic BLEs (2 RLE: upper calf,lower calf, 2 LLE: upper calf, lower calf) Mepilex Border dressing-nursing to change every 3 days and as needed for dressing with 50% or greater strike though drainage. 1. Cleanse wound with dermal wound cleanser and gauze. 2. Apply Mepilex Border dressing Wound Care will follow weekly * Renetta Shah RN - 10/28/2022 4:43 PM EDT ANGIO NURSING DATABASE Name: Brayan Jaramillo Date of : 1955 AGE: 67 y.o. Address: [address] [address] (home) Mobile: Telephone Information: Referring Provider: Sameer Llamas REASON FOR VISIT: Order Questions Answers What is the purpose of the study? Therapeutic and Diagnostic Reason for exam and clinical history: recurrent right pleural effusion with hypoxia Is the patient on anticoagulant / antiplatelet therapy ? No Requested Date 10/29/22 Is the patient taking any anticoagulants and/or antiplatelet meds? No Is patient awake, alert, and consentable? Yes Does patient need assist to stand? Yes Does Patient have any mobility limitations (e.g. spinal precautions) No Does patient require constant supervision? No Is patient over 450 lbs (200 kg) No Does patient have a pacemaker? No Does patient have a Chest Tube? No Is there a language / communication barrier? No Planned procedure: Right thoracentesis Labs to be performed day of procedure: No labs Sedation: No Sedation Prophylactic antibiotic : None Contrast: No contrast Additional medications for procedure: Lidocaine Consent: Pending Medications to discontinue (and days held): None Case Urgency:: E- Elective IN-patient intervention within 3 days Allergies Allergen Reactions ??? Carboplatin ??? Penicillins Hives ??? Pollen Extracts Other (See Comments) rhinorrhea Pertinent PMH: Patient Active Problem List Diagnosis Code ??? Thymic carcinoma C37 ??? Pancytopenia D61.818 ??? Atrial fibrillation I48.91 ??? Essential hypertension I10 ??? Hypothyroidism E03.9 ??? Abnormal uterine bleeding N93.9 ??? Platelet disorder D69.1 Date/Procedure Meds Given/Comments 10/28/22 Right thoracentesis - 750 ml Local only 1635 to procedure room IR 3 via stretcher. Sitting on edge of bed. All monitors, O2, safety strap in place. Meds per protocol. Laboratory Results: Lab Results Component Value Date INR 1.8 10/22/2022 Lab Results Component Value Date CREATININE 1.27 (H) 10/28/2022 Lab Results Component Value Date K 4.1 10/28/2022 Lab Results Component Value Date PLATELET 43 (L) 10/28/2022 * Daniel Green MD - 10/28/2022 11:03 AM EDT Hospital Medicine Progress Note Admit Date: 10/22/2022 Hospital Day 6 days Interval events: - feels well this morning, no complaints - no further signs of bleeding - platelet count continues to improve - seen by cardiology for severe - given 160 IV lasix yesterday, good response (net neg 3.4L) Physical Exam: Last Set of Vitals and range of vitals over past 24 hours: Last value Range last 24 hrs Temperature Temp: 36.6 ??C (97.9 ??F) Temp: [36.5 ??C (97.7 ??F)-36.8 ??C (98.2 ??F)] Heart Rate Heart Rate: 76 Heart Rate: [71-79] Blood Pressure BP: 112/70 BP: (111-136)/(70-87) Respiratory Rate Resp: 18 Resp: [18-22] SpO2 SpO2: 92 % SpO2: [91 %-94 %] Physical Exam Gen: NAD. A&Ox4. Sitting up in bed. HEENT: No scleral icterus. Moist mucous membranes. CV: Irregularly irregular rhythm. Normal rate. 3/6 murmur best appreciated over LUSB. Pulm: clear to ascultation bilaterally in the anterior & posterior lung kim. Abd: Significant anasarca with hard, indurated texture over abdomen. Nontender to palpation. Ext: significant non-pitting edema with tenderness and fausto discoloration in bilateral lower extremities. Also has similarly textured patches of indurated skin on forearms. Neuro: alert and appropriate. Non-focal. Grossly intact. Psych: cooperative, calm, pleasant Laboratory (Last 24 Hours): Last 3 wbc, hgb, hct plt Recent Labs 10/28/22 0450 10/27/22 0340 10/26/22 0415 WBC 3.8* 4.1 3.4* HGB 7.0* 7.5* 7.2* HCT 22.5* 23.8* 23.3* PLATELET 43* 27* 15* Last 3 Lytes Recent Labs 10/28/22 0450 10/27/22 0340 10/26/22 0415 NA 137 136 135 K 4.1 4.4 4.6 CL 97* 98 99 CO2 30 29 27 BUN 62* 60* 55* CREATININE 1.27* 1.34* 1.23* Last 3 LFTs Recent Labs 10/22/22 2310 AST 23 ALT 6 ALKPHOS 49 BILITOT 1.5* BILIDIR 0.7* Last Ca, Mg, Phos Recent Labs 10/28/22 0450 CALCIUM 8.7 MAGNESIUM 0.82 Microbiology: No pertinent positives Radiology: XR Chest One View Final Result 1. Unchanged moderate right and small left pleural effusions. 2. Persistent mild pulmonary vascular congestion. 3. The bilateral lower lobe opacities are nonspecific and likely represent a combination of effusion and atelectasis however a component of pneumonia is difficult to exclude particularly at the right lung base. Thank you for letting us participate in the care of this patient. If you are a health care provider and have any questions regarding this report, please contact the number below. For patients who have questions please contact the health foster care worker that requested your imaging first. Electronically signed by: Saul Lemus MD, [facility] ([phone]), at 10/26/2022 12:10 PM Other Studies: TTE 10/26/22: Interpretation Summary There is severe aortic stenosis. [...] pericardial effusion. See report for additional findings. Assessment: Brayan Jaramillo is a 67 y.o. 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 ?? 10/28: Finished 4 days of dexamethasone on 10/26 and platelet count continues to climb. Will continueto monitor. Seen by cardiology for severe . No talk of TAVR until platelet count is higher. However, wlil continue to diurese given edema, bilateral pleural effusions, and persistent O2 requirement. ?? PLAN: #Acute hypoxic respiratory failure secondary to pulmonary edema, pleural effusions, atelectasis #Anasarca likely 2/2 prior chemotherapy meds #Newly discovered severe aortic stenosis - 10/22 CT chest & CXR from [facility] bilateral pleural effusions, and atelectasis - 10/26 TTE with severe - continue supplemental oxygen - continue aggressive diuresis today - appreciate cards recs - holding home amiloride at this time given KALEIGH #Severe thrombocytopenia 2/2 ITP #Hematemesis vs hemoptysis, resolved #Anemia, acute on chronic - appreciate heme onc assistance - s/p dexamethasone 40 mg qd for 4 days (10/23-10/26) - holding home apixaban (for afib) - once daily PO PPI #KALEIGH, likely pre-renal, improving - avoid nephrotoxins - continue to trend Cr - encourage PO intake? #Home medications - continue home levothyroxine - continue home diltiazem (240 mg XR converted / reduced to 45 mg q6hr) - continue home paroxetine 20 mg - holding home apixaban ?? Routine Diet: Regular diet DVT: holding home apixaban given thrombocytopenia, no SQH yet either until plt >50k GI: PPI daily Dispo: pending clinical course CODE: Attempt Cardiopulmonary Resuscitation - Inpatient Daniel Green MD 10/28/2022 Associated attestation - Saul Randolph III, MD - 10/29/2022 3:27 PM EDT Attending Attestation and Certification Please see Daniel Green MD's note for details of the patient history of presentation and data. I have discussed, reviewed and agree with the documented History, Physical findings, Assessment and Plan of care. I have examined the patient myself and personally reviewed all studies. In addition, I certify thatI am a D-H credentialed attending provider with admitting privileges and that the patient meets or has met medical necessity to require an inpatient IPI level of care meeting a minimum of two midnights or is on the [facility] inpatient only procedure list (status C) due to: ITP * Dennise Sauceda, PT - 10/28/2022 9:48 AM EDT Physical Therapy Note Treatment Number PT: 2 Patient profile: Brayan Jaramillo is a 67 y.o. 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 Interval History (per hospital medicine note 10/28/2022): - feels well this morning, no complaints - no further signs of bleeding - platelet count continues to improve - seen by cardiology for severe - given 160 IV lasix yesterday, good response (net neg 3.4L) Social History: Home set-up: Lives with son, DIL, and 2 grandchildren in a single level home in [place], [place] Stairs: Ramp to enter Bathroom Set-up: Clawfoot tub, has been sponge bathing due to difficulty getting in/out of the tub.Plans to get bathroom renovated to have a walk-in shower Baseline Mobility: Ambulates with a 4WW inside and a w/c outside or when fatigued (typically dependently pushed with the w/c). Independent with most I/ADLs, including cleaning, and simple meals. Family assists with laundry, checking the mail, and running errands. Doesn't wear O2 at baseline. Equipment at home: 4WW, manual w/c, licensed audiologist Fall history: Denies Precautions/Special Considerations: Full Code, High risk for skin breakdown, At risk to Fall, Low Platelets, BLE wounds Lines: Nikhil, PIV, Riley, Supplemental Oxygen (4L NC), Implanted port Activity Orders: Activity as tolerated Diet: Regular Diet Mobility and Positioning Recommendations: ?? Pt. to utilize 1 person assist and front-wheeled walker for ambulation and transfers with nursing. Recommend a second person for longer distance ambulation for O2 and chair follow. ?? Please encourage up to chair for meal times as able. ?? Pt encouraged to ambulate frequently with staff, getting into the bathroom for toileting and walking out in the dugan >/= 3 times daily as able. Subjective: I'll do anything you want me to do today I'm not sure rehab is the path I want to take, but I'll think about it Objective: Patient seen for physical therapy (MT present) and demonstrated the following: Pain: Denied pain at rest or with activity Vital Signs: HR 88-125 bpm, SpO2 93% on 4L at rest, dipped to 85-88% on 4L with activity that recovered relatively quickly with rest and PLB, increased to 5L and remained at 87-90% on 5L with activity, r Mental Status: alert, oriented to person, place, and time, pleasant, cooperative Bed Mobility: Supine to Sit: Modified independent, HOB elevated, towards L EOB, use of bedrails, increased effortand time Sit to Supine: NA, pt ended session sitting in bedside chair Transfers: Sit to Stand: CGA x2 from EOB and min assist x2 from bedside chair (x2) to front-wheeled walker, use of momentum, increased time and effort, verbal cues for hand placement Stand to Sit: CGA x2 from front-wheeled walker to bedside chair, decreased eccentric control, verbal cues for hand placement Bed to Chair: CGA x2 with a FWW, stand-step transfer, towards the L, steady Gait: Distance: 20' + 20' Device used: front-wheeled walker Level of assist: CGA + line and chair follow Gait mechanics: Decreased gait speed, short step length/height with minimal foot clearance, foot trunk lean with heavy reliance on BUE, slight VASQUEZ (SpO2 dipped to 85% on 4L) Stairs: NA Balance: Sitting Static: Good, independent sitting EOB Sitting Dynamic: Good Standing Static: Fair+ with a front-wheeled walker, CGA x1 Standing Dynamic/Gait: Fair with a front-wheeled walker, steady with no LOB Therapeutic Exercise: NA Patient status, treatment, and mobility recommendations discussed with nursing. ?? Pt left in bedside recliner chair, with all needs met, with call wallace in reach and with chair alarmactive following visit. Assessment: Brayan Jaramillo was seen today for physical therapy treatment session for continuation of POC. Pt pleasant and motivated to participate in therapy session. Pt performed multiple sit<>stand transfers, a stand-pivot, and ambulation with the FWW and 1-2 person assist, demonstrating significant improvements in endurance, strength, and activity tolerance. Pt ambulated ~20' x2 in the room initially on 4L NC but desatted to the mid 80s requiring an increase to 5L. Pt making steady progress; however, continue to recommend pt discharge to a rehab facility to maximize functional mobility, independence, and safety. Pt will benefit from ongoing therapeutic interventions to achieve ther apy goals. Discharge Recommendations: Based on the current findings, Anticipated Discharge Disposition (PT): swing bed rehabilitation facility when medically ready for hospital discharge. Discharge recommendation is based on the patient's current physical impairments, prior functional status, potential to return to prior level of function, patient motivation, reported home support, potential for functional gains, current level of endurance, reported home environment and anticipated trajectory of progress and may change based on patient progress during this hospitalization. Consult Recommendations: No other consults recommended at this time. Equipment needs: Anticipated Equipment Needs at Discharge (PT): to be determined Goals: To be achieved by 11/19/2022: Ongoing ?? 1. Pt. to demonstrate knowledge of safety limitations and precautions and will appropriately request assistance for functional activities and to mobilize. 2. Pt. to demonstrate understanding of appropriate therapeutic exercises. 3. Pt. to perform bed mobility with supervision with HOB flat. 4. Pt. to perform sit<>stand transfers with modified independence using a front wheeled walker. 5. Pt. to ambulate 75 feet with modified independence using a front wheeled walker. 6. Pt to propel wheelchair x 50 ft. using BUE. 7. Pt will tolerate progression towards upright with stable vital signs. 8. Family or caregiver to demonstrate understanding of therapeutic interventions to support the care of the patient. Plan: Therapy Frequency (PT): 2-4 times/wk for balance training, bed mobility training, gait training, patient/family education, strengthening, transfer training and wheelchair managment/propulsion training as outlined in initial evaluation. Patient agrees with plan as stated. Time IN/OUT: 9:12-9:48 Total Minutes, Physical Therapy: 36 Billing Code: TEF x2 Dennise Sauceda, ANTIONE Pager: [phone] Physical Therapy Inpatient Rehabilitation Department * Aissatou Lopez, SEBASTIAN - 10/28/2022 7:36 AM EDT Illness Severity [x] Stable [] Watcher [] Unstable Patient Summary Reason for admission: Hematemesis, low H/H, and platelets, Relevant PMH: Thymic cancer, Afib, on elaquis, Hypothyroidism, depression, anxiety Significant 24 hour events: 10/27 PM: Assumed care at 0030 hrs. VSS on 4L NC. On telemetry maintaining controlled Afib, HR 70s. No complained of pain, nausea. PRN refresh eyedrops given x1. Riley cath in place draining clear adequate urine. She is turning and positioning her self independently on bed. Sleeping in between care. Action List Diurese - PO lasix Wound care BLE * Christie Mackey RN - 10/27/2022 6:10 PM EDT Illness Severity [x] Stable [] Watcher [] Unstable Patient Summary Reason for admission: Hematemesis, low H/H, and platelets, Relevant PMH: Thymic cancer, Afib, on elaquis, Hypothyroidism, depression, anxiety Significant 24 hour events: M: A&Ox4, VSS 4L NC. 160mg of IV lasix given. Riley having large amounts of output throughout day. Patient refusing to stand on scale. No complaints of pain. EKG completed, see results. Placed on tele, showing AFIB throughout shift. One small BM today. Daughter at bedside in morning. Resting between nursing care. Action List Diurese - PO lasix Wound care BLE Discharge Plan: SNF? Home meds in Rx [] Belongings in safe [] Consults: oncology PT [x] OT [x] MAGNETIC TESTER [] Last Flu vaccine: Last Covid Test Result: Situational Awareness & Contingency Planning Do not shut door - pt is claustrophobic BLEs (2 RLE: upper calf,lower calf, 2 LLE: upper calf, lower calf) Mepilex Border dressing-nursing to change every 3 days and as needed for dressing with 50% or greater strike though drainage. 1. Cleanse wound with dermal wound cleanser and gauze. 2. Apply Mepilex Border dressing Wound Care will follow weekly * Gauri Smiley, OT - 10/27/2022 1:10 PM EDT Occupational Therapy Treatment Note Treatment Number OT: 2 Patient Dx: Per MD note, Brayan Blackman Ella is a 67 y.o. 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 Acute hypoxic respiratory failure secondary to pulmonary edema, pleural effusions, atelectasis??. Social History: Home Setup: pt lives with her son, son's SO, and 2 grandchildren. Ramp to enter single level home. Bathroom has a claw foot tub, however she plans to have the bathroom renovated with a walk-in shower- uncertain of timeline in which this is to be completed Functional Status: independent with most ADLs and sponge bathes at baseline- does not use claw foottub. She ambulates with a 4WW indoors and uses a manual w/c outdoors, although daughter reports shewill occasionally use w/c indoors as well. She cleans and prepares simple meals. Has groceries delivered. Daughter does the laundry and family runs errands Equipment at home: licensed audiologist, 4WW, w/c Fall history: denies Precautions/Special Considerations: fall risk, full code, port, AAT, low platelets, BLE wounds, riley, supplemental O2 ??? Staff Recommendations: ?? Utilize upright chair position using bed features or transfer to recliner chair as appropriate with min assist x2 and FWW, ambulate as tolerated 3x/day ?? Bathroom or commode for toileting needs ??? Please encourage up to chair or seated EOB for meal times as able ?? Encourage participation in ADL's by providing set up A on tray table and physical assist only asneeded ?? Frequent orientation verbally & visually ?? Promote normalcy by encouraging participation in common daily tasks & leisure activities by providing set up assist ?? Encourage use of coping & calming strategies ?? Give choices when possible to support feelings of autonomy ?? Keep glasses, hearing aides, cell phones, tablets, etc within reach ?? Facilitate a normal sleep-wake cycle ?? Provide brief, clear instruction from one source at a time ?? Reduce extraneous stimulation ?? Provide calming music, favorite TV programs, magazines or newspapers Interval History: Per MD note on 10/27, - feels well this morning, no complaints - no further signs of bleeding - s/p TTE yesterday given new O2 requirement & bilat pleural effusions. Showed severe & cards consulted S: I'm just so tired! O: Patient seen for skilled OT treatment. Upon arrival, pt was sitting upright in bed and agreeableto therapy. Pt demonstrated the following: ?? Self-care & Functional Mobility: ?? Supine to sit: SBA, HOB fully raised, increased time and effort to initiate and complete ?? Provided with sock aide and instructed on adaptive technique to don socks ?? Donned R sock with s/u assist to position sock on sock aide, min assist to help guide sock aide on foot, and mod verbal cues for technique. Reports some R foot pain 2/2 bunion ?? Pt declined to trial donning L sock 2/2 fatigue and R foot pain 2/2 bunion. Dependent to don L sock ?? Sit to stand from EOB 1x with min assist x2, FWW, HOB raised, and min cues for hand placement ?? Bed to chair: ambulated 1' with min assist x2 and FWW ?? Stand to sit with min assist ?? Prompted pt to perform several sit<>stands from chair to progress transitional movement and pt was in agreement to trial 2-3 stands. Scooted forwards towards edge of chair with supervision ?? Sit to stand from chair 1x with min-mod assist x2 and FWW ?? Stand to sit in chair with min assist ?? Pt declined to attempt additional sit<>stands, despite encouragement and education on importance of active participation in therapy. Pt continued to decline ?? Lunch s/u on table tray, pt independent with feeding self lunch sitting up in chair with all needs met, call wallace within reach, and alarm set ?? Cognition: ?? Behavior / Mood: lethargic initially and seemed mildly confused, somewhat cooperative, emotionally labile and tearful; appearing frustrated with staff, reports she didn't feel like herself ?? Alert and oriented to: person, place, month, year, time of day and situation ?? Follows commands: 1 step, 2 step and 100% of the time ?? Attention: distractible and requires cues to redirect ?? Safety awareness: decreased insight into deficits ?? Fearful of falling and anxious; provided encouragement and support ?? Endurance: decreased activity tolerance ?? Vitals: 93% SpO2 on humidified 4L, desat to 85% when removing NC to blow nose ?? HR: 80s-90s at rest, 100s with activity, on telemetry ?? Strength/ROM: globally deconditioned, limited by body habitus as well Pain: reported pain initially, however when asked to localize pain pt reported she was not having pain. Reported R foot pain at site of bunion after using sock aide Education: Pt/family/caregiver education ongoing regarding: Role of occupational therapy/rehabilitation, Transfers, Assistive device/technique, ADL, Breathing exercises, Precautions/Protocol, Functional Mobility, Activity pacing/Energy conservation, Balance, Recommendations and Discharge planning. Staff Communication: Patient status, treatment, and mobility recommendations discussed with nursing/other staff. Patient in chair with all needs met, call wallace within reach, and alarm set. ASSESSMENT: Pt seen for continuation of OT plan of care. Pt seemed lethargic, anxious, and emotionally labile today. She was educated on adaptive technique for using sock aide and trialed with R foot. She would benefit from continued practice using AE for LB dressing. Pt would benefit from frequentopportunities to mobilize and participate in ADLs on a daily basis to promote independence. Pt willbenefit from ongoing therapeutic interventions to achieve pt's and therapy goals. Anticipated Discharge Disposition (OT): half-way facility Equipment Recommendations: FWW Occupational Therapy Goals: To be achieved by 11/09/2022. Pt will perform all functional mobility with supervision and assistive device as needed. Pt will stand at sink level with supervision for >2 minutes for ADLs. Pt will complete seated/standing sponge bathing with supervision. Pt will complete LB dressing with supervision and AE as needed. Pt will complete all aspects of toilet routine (transfer, hygiene, clothing management) with supervision. Pt will integrate a coping strategy for anxiety management with min verbal cues. Therapy Frequency (OT): 2-4 times/wk Total Minutes, Occupational Therapy: 27 (x1 schm, x1 tfa, [id number]) Pager: [phone] Gauri Smiley OTR/Yehuda Occupational Therapy Rehabilitation Department * Daniel Green MD - 10/27/2022 10:20 AM EDT [facility] Medicine Progress Note Admit Date: 10/22/2022 Hospital Day 5 days Interval events: - feels well this morning, no complaints - no further signs of bleeding - s/p TTE yesterday given new O2 requirement & bilat pleural effusions. Showed severe & cards consulted Physical Exam: Last Set of Vitals and range of vitals over past 24 hours: Last value Range last 24 hrs Temperature Temp: 35.9 ??C (96.6 ??F) Temp: [35.9 ??C (96.6 ??F)-36.6 ??C (97.9 ??F)] Heart Rate Heart Rate: 78 Heart Rate: [78-85] Blood Pressure BP: 140/87 BP: (117-144)/(66-87) Respiratory Rate Resp: 22 Resp: [22-24] SpO2 SpO2: 92 % SpO2: [79 %-97 %] Physical Exam Gen: NAD. A&Ox4. Sitting up in bed. HEENT: No scleral icterus. Moist mucous membranes. CV: Irregularly irregular rhythm. Normal rate. 3/6 murmur best appreciated over LUSB. Pulm: clear to ascultation bilaterally in the anterior & posterior lung kim. Abd: Significant anasarca with hard, indurated texture over abdomen. Nontender to palpation. Ext: significant non-pitting edema with tenderness and fausto discoloration in bilateral lower extremities. Also has similarly textured patches of indurated skin on forearms. Neuro: alert and appropriate. Non-focal. Grossly intact. Psych: cooperative, calm, pleasant Laboratory (Last 24 Hours): Last 3 wbc, hgb, hct plt Recent Labs 10/27/22 0340 10/26/22 0415 10/25/22 0400 WBC 4.1 3.4* 2.9* HGB 7.5* 7.2* 7.4* HCT 23.8* 23.3* 22.7* PLATELET 27* 15* 11* Last 3 Lytes Recent Labs 10/27/22 0340 10/26/22 0415 10/25/22 0400 NA 136 135 137 K 4.4 4.6 4.2 CL 98 99 100 CO2 29 27 28 BUN 60* 55* 55* CREATININE 1.34* 1.23* 1.24* Last 3 LFTs Recent Labs 10/22/22 2310 AST 23 ALT 6 ALKPHOS 49 BILITOT 1.5* BILIDIR 0.7* Last Ca, Mg, Phos Recent Labs 10/27/22 0340 CALCIUM 8.7 MAGNESIUM 0.92 Microbiology: No pertinent positives Radiology: XR Chest One View Final Result 1. Unchanged moderate right and small left pleural effusions. 2. Persistent mild pulmonary vascular congestion. 3. The bilateral lower lobe opacities are nonspecific and likely represent a combination of effusion and atelectasis however a component of pneumonia is difficult to exclude particularly at the right lung base. Thank you for letting us participate in the care of this patient. If you are a health care provider and have any questions regarding this report, please contact the number below. For patients who have questions please contact the health foster care worker that requested your imaging first. Electronically signed by: Sual Lemus MD, [facility] ([phone]), at 10/26/2022 12:10 PM Other Studies: TTE 10/26/22: Interpretation Summary There is severe aortic stenosis. [...] pericardial effusion. See report for additional findings. Assessment: Brayan Jaramillo is a 67 y.o. 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 ?? 10/27: Finished 4 doses dexamethasone and platelet count continues to climb. Reached out to heme/onc, no further interventions, will continue to monitor. Pt underwent TTE yesterday given new O2 requirement (4L NC, desat when walking) and bilateral pleural effusions. Significant for severe and cards consulted to discuss options. Will likely need more aggressive diuresis today. We also reached out to primary oncologist to better understand tx plan and prognosis for her underlying thymic cancer. ?? PLAN: #Acute hypoxic respiratory failure secondary to pulmonary edema, pleural effusions, atelectasis #Anasarca likely 2/2 prior chemotherapy meds #Newly discovered severe aortic stenosis - 10/22 CT chest & CXR from [place] bilateral pleural effusions, and atelectasis - 10/26 TTE with severe - continue supplemental oxygen - will start with 160 IV lasix today - f/u cards recs - holding home amiloride at this time given KALEIGH #Severe thrombocytopenia 2/2 ITP #Hematemesis vs hemoptysis, resolved #Anemia, acute on chronic - appreciate heme onc assistance - s/p dexamethasone 40 mg qd for 4 days (10/23-10/26) - holding home apixaban (for afib) - once daily PO PPI #KALEIGH, likely pre-renal, improving - avoid nephrotoxins - continue to trend Cr - encourage PO intake? #Home medications - continue home levothyroxine - continue home diltiazem (240 mg XR converted / reduced to 45 mg q6hr) - continue home paroxetine 20 mg - holding home apixaban ?? Routine Diet: Regular diet DVT: holding home apixaban given thrombocytopenia, no SQH yet either until plt >50k GI: PPI daily Dispo: pending clinical course CODE: Attempt Cardiopulmonary Resuscitation - Inpatient Daniel Green MD 10/27/2022 Associated attestation - Saul Randolph III, MD - 10/28/2022 2:08 PM EDT Attending Attestation and Certification Please see Daniel Green MD's note for details of the patient history of presentation and data. I have discussed, reviewed and agree with the documented History, Physical findings, Assessment and Plan of care. I have examined the patient myself and personally reviewed all studies. In addition, I certify thatI am a D-H credentialed attending provider with admitting privileges and that the patient meets or has met medical necessity to require an inpatient IPI level of care meeting a minimum of two midnights or is on the [facility] inpatient only procedure list (status C) due to: ITP * Evelina Price RN - 10/27/2022 5:04 AM EDT Patient Summary Reason for admission: Hematemesis, low H/H, and platelets, Relevant PMH: Thymic cancer, Afib, on elaquis, Hypothyroidism, depression, anxiety Significant 24 hour events: 10/26 PM: VSS on 3-4L NC, afebrile. Anxious at times. Endorsing 1/10 CARLOS - tylenol given with good affect. Mepliex on BLE c/d/I. Shifting own weight in bed. Resting in between care. Action List Diurese - PO lasix Wound care BLE * Bibiana Persaud RN - 10/26/2022 6:18 PM EDT Patient Summary Reason for admission: Hematemesis, low H/H, and platelets, Relevant PMH: Thymic cancer, Afib, on elaquis, Hypothyroidism, depression Significant 24 hour events: 10/26 AM: Brayan anxious at times but reassurance given. 1 view Cxray complete; see results review. Worked with PT/OT. Spent the morning in the chair. Has been requiring 2-4L NC depending on activity. A total of 160mg of lasix administered today; with good output. Riley draining clear/yellow urine. Pt had bit left side of tongue; large hematoma. Team aware. Good PO intake. Echo complete at bedside. Daughter at bedside this AM. Did attempt getting pt on the scale for an accurate wt, pt refused stating 'it was stable enough.' Bed wt this afternoon was not accurate. Will attempt to get wt tomorrowmorning. Action List Diurese - PO lasix Wound care BLE Consults: oncology PT [x] OT [x] MAGNETIC TESTER [] * Daniel Green MD - 10/26/2022 10:15 AM EDT Hospital Medicine Progress Note Admit Date: 10/22/2022 Hospital Day 4 days 24 Hour Events: - continues on dexamethasone for ITP, plt count slowly climbing - no further signs of bleeding - seen by wound care yesterday Subjective: - feels well this morning - no complaints Physical Exam: Last Set of Vitals and range of vitals over past 24 hours: Last value Range last 24 hrs Temperature Temp: 36.3 ??C (97.3 ??F) Temp: [36.3 ??C (97.3 ??F)-36.9 ??C (98.4 ??F)] Heart Rate Heart Rate: 77 Heart Rate: -- Blood Pressure BP: 131/79 BP: (118-138)/(74-81) Respiratory Rate Resp: 24 Resp: [20-26] SpO2 SpO2: (!) 88 % SpO2: [88 %-93 %] Physical Exam Gen: NAD. A&Ox3. Sitting up in bed. HEENT: No scleral icterus. Moist mucous membranes. CV: Irregularly irregular rhythm. Normal rate. 3/6 murmur best appreciated over LUSB. Pulm: clear to ascultation bilaterally in the anterior & posterior lung kim. Abd: Significant anasarca with hard, indurated texture over abdomen. Nontender to palpation. Ext: significant non-pitting edema with tenderness and fausto discoloration in bilateral lower extremities. Also has similarly textured patches of indurated skin on forearms. Neuro: alert and appropriate. Non-focal. Grossly intact. Psych: cooperative, calm, pleasant Laboratory (Last 24 Hours): Last 3 wbc, hgb, hct plt Recent Labs 10/26/22 0415 10/25/22 0400 10/24/22 0140 WBC 3.4* 2.9* 2.0* HGB 7.2* 7.4* 7.2* HCT 23.3* 22.7* 22.1* PLATELET 15* 11* 8* Last 3 Lytes Recent Labs 10/26/22 0415 10/25/22 0400 10/24/22 0140 NA 135 137 135 K 4.6 4.2 4.0 CL 99 100 97* CO2 27 28 27 BUN 55* 55* 60* CREATININE 1.23* 1.24* 1.42* Last 3 LFTs Recent Labs 10/22/22 2310 AST 23 ALT 6 ALKPHOS 49 BILITOT 1.5* BILIDIR 0.7* Last Ca, Mg, Phos Recent Labs 10/26/22 0415 CALCIUM 8.8 MAGNESIUM 0.94 Microbiology: No pertinent positives Radiology: XR Chest One View (Results Pending) Other Studies: No pertinent positives Assessment: Brayan Jaramillo is a 67 y.o. 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 ?? 10/26: Lack of response to platelet transfusion most consistent with ITP, but platelet count has been slowly rising with dexamethasone. Appreciate hematology recs. Will continue to defer engaging GI unless recurrent bleeding develops. Continues on home lasix with good response. She has a new O2 requirement for which we will get a repeat CXR today to evaluate size of effusions. ?? PLAN: #Severe thrombocytopenia 2/2 ITP #Hematemesis vs hemoptysis, resolved #Anemia, acute on chronic - appreciate heme onc assistance - dexamethasone 40 mg qd for 4 days (10/23-10/26) - holding home apixaban (for afib) - once daily PO PPI #KALEIGH, likely pre-renal, improving - avoid nephrotoxins - continue to trend Cr - encourage PO intake? #Acute hypoxic respiratory failure secondary to pulmonary edema, pleural effusions, atelectasis #Anasarca likely 2/2 prior chemotherapy meds - 10/22 CT chest & CXR from [facility] bilateral pleural effusions, and atelectasis - will get repeat CXR today - continue supplemental oxygen - restarted home lasix PO 80 on 10/24 - holding home amiloride at this time given KALEIGH ?? #Home medications - continue home levothyroxine - continue home diltiazem (240 mg XR converted / reduced to 45 mg q6hr) - continue home paroxetine 20 mg - holding home apixaban ?? Routine Diet: Regular diet DVT: holding home apixaban given thrombocytopenia, no SQH yet either GI: PPI daily Dispo: pending clinical course CODE: Attempt Cardiopulmonary Resuscitation - Inpatient DPOA:?Primary Emergency Contact: Nba Jaramillo ?? Daniel Green MD 10/26/2022 Associated attestation - Saul Randolph III, MD - 10/27/2022 1:20 PM EDT Attending Attestation and Certification Please see Daniel Green MD's note for details of the patient history of presentation and data. I have discussed, reviewed and agree with the documented History, Physical findings, Assessment and Plan of care. I have examined the patient myself and personally reviewed all studies. In addition, I certify thatI am a D-H credentialed attending provider with admitting privileges and that the patient meets or has met medical necessity to require an inpatient IPI level of care meeting a minimum of two midnights or is on the CMS inpatient only procedure list (status C) due to: ITP * Dennise Sauceda, PT - 10/26/2022 9:50 AM EDT Physical Therapy evaluation Patient profile: Brayan Jaramillo is a 67 y.o. 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 Acute hypoxic re spiratory failure secondary to pulmonary edema, pleural effusions, atelectasis??. Patient with the following active problems: Past Medical History: Diagnosis Date ??? Atrial fibrillation ??? HTN (hypertension) ??? Obesity ??? Thymic cancer 04/2017 ??? 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 Ventral hernia Past Surgical History: Procedure Laterality Date ??? APPENDECTOMY 2002 ??? BREAST BIOPSY ??? SECTION ??? HERNIA REPAIR 2005 ??? SOFT TISSUE BIOPSY 03/22/2017 ??? THORACENTESIS Social History: Home set-up: Lives with son, DIL, and 2 grandchildren in a single level home Stairs: Ramp Bathroom Set-up: Clawfoot tub, has been sponge bathing due to difficulty getting in/out of the tub.Plans to get bathroom renovated to have a walk-in shower Baseline Mobility: Ambulates with a 4WW inside and a w/c outside or when fatigued. Independent withmost I/ADLs, including cleaning, and simple meals. Family assists with laundry, checking the mail, and running errands. Doesn't wear O2 at baseline. Equipment at home: 4WW, manual w/c, licensed audiologist Fall history: Denies Precautions/Special Considerations: Full Code, High risk for skin breakdown, At risk to Fall, Low Platelets, BLE wounds Lines: Nikhil, PIV, Riley, Supplemental Oxygen (4L NC), Implanted port Activity Orders: Activity as tolerated Diet: Regular Diet Mobility and Positioning Recommendations: ?? Pt. to utilize 2 person min assist and front-wheeled walker for stand-pivot transfers with nursing. ?? Please encourage up to chair for meal times as able. Subjective: ???The mental aspect of moving is the hardest part. I'm scared of falling?? Objective: Pt seen for evaluation today in conjunction with OT. Pain: Reports chronic L arthritic knee pain that increases with WB and ambulating Vital Signs: Stable, HR 79-84 bpm, SpO2 90-98% on 4L NC Mental Status: alert, oriented to person, place, and time, anxious, pleasant Vision: Wears glasses for reading Skin: BLE non-pitting edema, BLE wounds, a few instances of epistaxis Musculoskeletal: ROM: WFL Strength: WFL except BLE slightly limited by knee pain and edema Sensation: Reports peripheral neuropathy in bilateral feet Bed Mobility: Supine to Sit: NA, pt sitting EOB at start of session Sit to Supine: NA, pt ended session sitting in bedside chair Transfers: Sit to Stand (x3): Min assist x2 from EOB to front-wheeled walker, bed height raised , increased time and effort, verbal cues for hand placement and sequencing. First stand, held for ~10 seconds but was unable to step onto weight scale. Second stand, took a couple lateral steps towards the left. Third stand, performed a stand-pivot transfer to the chair. Stand to Sit: Min assist x1 from front-wheeled walker to EOB and bedside chair, decreased eccentriccontrol, verbal cues for hand placement Bed to Chair: Min assist x2 with a FWW, stand-step transfer, towards the L, steady Gait: NA Stairs: NA Balance: Sitting Static: Good, independent sitting EOB Sitting Dynamic: Good Standing Static: Fair+ with a front-wheeled walker, able to hold for >10 seconds with CGA Standing Dynamic/Gait: Fair with a front-wheeled walker, limited by pain and endurance Therapeutic Exercise: NA Education: Patient has been educated on bed mobility, transfers, gait, assistive device use/technique, balance, breathing exercises, activity pacing/energy conservation, safety, role of therapy and discharge planning and verbalizes and demonstrates understanding. Patient status, treatment, and mobility recommendations discussed with nursing. Pt left in bedside recliner chair, with all needs met, with call wallace in reach and with chair alarmactive following visit. Assessment: Brayan Jaramillo was seen today for physical therapy evaluation. Pt pleasant and agreeable to therapy, despite being anxious about mobilizing. Upon evaluation, patient presents with pain, BLE edema and wounds, sensory deficits, new O2 requirement, global deconditioning, balance deficits,decreased endurance, and reduced activity tolerance, resulting in functional limitations. Despite th annie deficits, pt was able to perform 3 sit<>stand transfers with the FWW and performed a stand-step transfer OOB to the bedside chair, but further progression limited by anxiety. Pt appears to be below her prior level of function; therefore, would benefit from a rehab stay following dischargeto maximize functional mobility, independence, and safety prior to discharging home. Pt will benefit from ongoing therapeutic interventions while in the acute care setting to reach pt and therapy goals. Discharge Recommendations: Based on the current findings, recommend half-way facility when medically ready for hospitaldischarge. Discharge recommendation is based on the patient's current physical impairments, prior functional status, potential to return to prior level of function, patient motivation, reported home support, potential for functional gains, current level of endurance, reported home environment and anticipated trajectory of progress and may change based on patient progress during this hospitalization Consult Recommendations: No other consults recommended at this time. Equipment needs: to be determined Goals: To be achieved by 11/19/2022: 1. Pt. to demonstrate knowledge of safety limitations and precautions and will appropriately request assistance for functional activities and to mobilize. 2. Pt. to demonstrate understanding of appropriate therapeutic exercises. 3. Pt. to perform bed mobility with supervision with HOB flat. 4. Pt. to perform sit<>stand transfers with modified independence using a front wheeled walker. 5. Pt. to ambulate 25 feet with modified independence using a front wheeled walker. 6. Pt to propel wheelchair x 50 ft. using BUE. 7. Pt will tolerate progression towards upright with stable vital signs. 8. Family or caregiver to demonstrate understanding of therapeutic interventions to support the care of the patient. Plan: 2-4 times/wk for therapy including balance training, bed mobility training, gait training, patient/family education, strengthening, transfer training and wheelchair managment/propulsion training. Patient understands and agrees with plan as stated above. 2017 PT Evaluation Code Rationale: ?? Diagnosis & Pertinent Co-Morbidities, personal factors, and present illness affecting Plan of Care: ?? Total # of Factors: 0 1-2 3+ X ?? Examination of body system impairments, functional limitations and behaviors, and/or participation restrictions Addressing 1-2 elements Addressing 3 + elements X Addressing 4 + elements ?? Clinical presentation: See assessment above. Stable/Uncomplicated Evolving/Fluctuating Symptoms Unstable/Unpredictable X ?? Clinical decision making of moderate complexity based on pt's functional performance as outlinedin this evaluation. Time IN/OUT: 9:12-9:50 Total Time: 38 minutes, Moderate Complexity Evaluation Dennise Sauceda, PT Pager: [phone] Physical Therapy Inpatient Rehabilitation Department * Gauri Smiley, OT - 10/26/2022 9:11 AM EDT Occupational Therapy Evaluation Patient profile: Per MD note, Brayan Jaramillo is a 67 y.o. 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 Acute hypoxic respiratory failure secondary to pulmonary edema, pleural effusions, atelectasis??. Past Medical History: Diagnosis Date ??? Atrial fibrillation ??? HTN (hypertension) ??? Obesity ??? Thymic cancer 04/2017 ??? 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 Ventral hernia Past Surgical History: Procedure Laterality Date ??? APPENDECTOMY 2002 ??? BREAST BIOPSY ??? SECTION ??? HERNIA REPAIR 2005 ??? SOFT TISSUE BIOPSY 03/22/2017 ??? THORACENTESIS Social History: Home Setup: pt lives with her son, son's SO, and 2 grandchildren. Ramp to enter single level home. Bathroom has a claw foot tub, however she plans to have the bathroom renovated with a walk-in shower- uncertain of timeline in which this is to be completed Functional Status: independent with most ADLs and sponge bathes at baseline- does not use claw foottub. She ambulates with a 4WW indoors and uses a manual w/c outdoors, although daughter reports shewill occasionally use w/c indoors as well. She cleans and prepares simple meals. Has groceries delivered. Daughter does the laundry and family runs errands Equipment at home: licensed audiologist, 4WW, w/c Fall history: denies Precautions/Special Considerations: fall risk, full code, port, AAT, low platelets, BLE wounds, riley, supplemental O2 Staff Recommendations: ?? Utilize upright chair position using bed features or transfer to recliner chair as appropriate with min assist x2 and FWW, ambulate as tolerated 3x/day ?? Bathroom or commode for toileting needs, if appropriate ??? Please encourage up to chair or seated EOB for meal times as able ?? Encourage participation in ADL's by providing set up A on tray table and physical assist only asneeded Subjective: I'm fearful Objective: Seen today for OT evaluation in conjunction with PT. ??? Vital Signs o HR: 80s o SpO2: 98% on 4L at rest, 88-90% with activity and intermittently removing O2 due to bloody nose ??? Pain: denied ??? Cognitive Status/Behavior o Behavior / Mood: alert, cooperative and anxious o Alert and oriented to: person, place, time and situation o Follows commands: multi step and 100% of the time o Attention: WFL o Safety awareness: WFL ? ? Vision & Perception o corrective lenses for reading ?? Communication o WFL ??? Musculoskeletal o ROM: BUEs grossly WFL, BLEs limited by edema o Strength: BUEs and BLEs grossly WFL o Sensation: peripheral neuropathy in feet o Skin: BLE edema and wounds noted ??? Activities of Daily Living: o Self-feeding: independent as indicated by good BUE ROM, strength, and coordination o Grooming: independent as indicated by good BUE ROM, strength, and coordination o Dressing: mod assist to thread underwear sitting EOB, min assist to hike up in standing, cue to maintain one UE on FWW while hiking up with other UE o Bathing: will need min-mod assist for sponge bathing o Toileting: spoke with RN and recommend use of bedside commode; min assist x2 for transfer based on bed>chair transfer and min assist for clothing management based on LB dressing ??? Functional Mobility: o Supine to sit: NA, pt sitting on EOB upon arrival o Sit to stand: min assist x2 with FWW and min cues for hand placement on FWW, stood 3x from EOB o L lateral side steps towards the HOB with min assist and FWW o Bed to chair: stand step transfer with min assist and FWW o Stand to sit: min assist o Sit to supine: NA, pt in chair on exit ??? Balance o Sitting balance: good o Standing balance: fair Education: patient and daughter have been educated on Role of occupational therapy/rehabilitation, Transfers, Assistive device/technique, ADL, Breathing exercises, Precautions/Protocol, Functional Mobility, Activity pacing/Energy conservation, Balance, Recommendations and Discharge planning and verbalizes understanding. Patient status, treatment, and mobility recommendations discussed with nursing. Patient in chair with alarm set, call wallace within reach, and all needs met. Assessment: Pt has been seen for occupational therapy evaluation. Brayan Jaramillo presents with thefollowing performance skill deficits and client factors: decreased activity tolerance, decreased flexibility/ROM, decreased strength, decreased sitting/standing balance, body habitus, sensory deficits and new O2 requirement. These performance deficits have led to activity limitations and participation restrictions in the following areas of occupation: dressing, bathing, toileting and transfers/mobility. Evaluation was limited by anxiety, although pt progressed to transferring to the chair with encouragement and support. She is cooperative and motivated. Pt appears below her functional baseline and would benefit from SNF to increase activity tolerance and independence with ADLs/IADLs/functional mobility. Pt would benefit from further inpatient OT interventions to address performance deficits and maximize participation and independence with occupations of daily living. Equipment needs at discharge: FWW Anticipated Discharge Disposition (OT): half-way facility Other Recommendations: No other consults recommended at this time Goals: To be achieved by 11/09/2022. Pt will perform all functional mobility with supervision and assistive device as needed. Pt will stand at sink level with supervision for >2 minutes for ADLs. Pt will complete seated/standing sponge bathing with supervision. Pt will complete LB dressing with supervision and AE as needed. Pt will complete all aspects of toilet routine (transfer, hygiene, clothing management) with supervision. Pt will integrate a coping strategy for anxiety management with min verbal cues. Plan: OT: Therapy Frequency (OT): 2-4 times/wk Planned OT interventions: Role of occupational therapy/rehabilitation, Transfers, Assistive device/technique, Adaptive equipment training, ADL, Breathing exercises, Precautions/Protocol, Functional Mobility, Activity pacing/Energy conservation, Balance, Recommendations, and Discharge planning. Total Minutes, Occupational Therapy: 49 (mod complexity reinaldo, [id number]) 2017 OT Evaluation Code Rationale: ?? Diagnosis & Pertinent Co-Morbidities affecting Plan of Care: see PMHx ?? Occupational Profile & Client History: Brief Expanded Extensive x ?? Assessment of Occupational Performance: 1-3 performance deficits 3-5 performance deficits x 5 + performance deficits ?? Clinical Decision Making: Low Moderate High x Clinical decision making of moderate complexity using standardized patient assessment instrument and measurable assessment of functional outcome. Gauri Smiley OTR/L Pager 2018 Occupational Therapy Rehabilitation Department * Evelina Price RN - 10/26/2022 5:38 AM EDT Patient Summary Reason for admission: Hematemesis, low H/H, and platelets, Relevant PMH: Thymic cancer, Afib, on elaquis, Hypothyroidism, depression Significant 24 hour events: 10/25 PM: VSS on RA, afebrile. Anxious at times. Denies pain. Riley leaked x1. Mepliex on BLE c/d/I.Resting in between care. Action List Diurese - PO lasix Wound care BLE * Daniel Green MD - 10/25/2022 10:38 AM EDT Inpatient - Progress Note Admit Date: 10/22/2022 Hospital Day 3 days 24 Hour Events: - continues on dexamethasone for ITP, plt count slowly climbing - no further signs of bleeding Subjective: - feels well this morning - reports not sleeping well Physical Exam: Last Set of Vitals and range of vitals over past 24 hours: Last value Range last 24 hrs Temperature Temp: 36.6 ??C (97.9 ??F) Temp: [36.4 ??C (97.5 ??F)-37 ??C (98.6 ??F)] Heart Rate Heart Rate: 77 Heart Rate: -- Blood Pressure BP: 122/75 BP: (102-124)/(65-77) Respiratory Rate Resp: 24 Resp: [18-24] SpO2 SpO2: 97 % SpO2: [90 %-97 %] Physical Exam Gen: NAD. A&Ox3. Sitting up in bed. HEENT: No scleral icterus. Moist mucous membranes. CV: Irregularly irregular rhythm. Normal rate. 3/6 murmur best appreciated over LUSB. Pulm: clear to ascultation bilaterally in the anterior lung kim. Abd: Significant anasarca with hard, indurated texture over abdomen. Nontender to palpation. Ext: significant non-pitting edema with tenderness and fausto discoloration in bilateral lower extremities. Also has similarly textured patches of indurated skin on forearms. Neuro: alert and appropriate. Non-focal. Grossly intact. Psych: cooperative, calm, pleasant Laboratory (Last 24 Hours): Last 3 wbc, hgb, hct plt Recent Labs 10/25/22 0400 10/24/22 0140 10/23/22 1510 WBC 2.9* 2.0* 2.2* HGB 7.4* 7.2* 6.3* HCT 22.7* 22.1* 19.7* PLATELET 11* 8* 6* Last 3 Lytes Recent Labs 10/25/22 0400 10/24/22 0140 10/23/22 0638 NA 137 135 131* K 4.2 4.0 4.1 CL 100 97* 95* CO2 28 27 27 BUN 55* 60* 63* CREATININE 1.24* 1.42* 1.65* Last 3 LFTs Recent Labs 10/22/22 2310 AST 23 ALT 6 ALKPHOS 49 BILITOT 1.5* BILIDIR 0.7* Last Ca, Mg, Phos Recent Labs 10/25/22 0400 CALCIUM 8.6 MAGNESIUM 0.94 Microbiology: No pertinent positives Radiology: No orders to display Other Studies: No pertinent positives Assessment: Brayan Jaramillo is a 67 y.o. 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 ?? Lack of response to platelet transfusion most consistent with ITP. Will continue treatment with Dexamethasone today. Will continue to defer engaging GI unless recurrent bleeding develops. Restarted home lasix yesterday with good response and now on oral PPI. Plan as below. ?? PLAN: #Severe thrombocytopenia 2/2 ITP #Hematemesis vs hemoptysis, resolved #Anemia, acute on chronic - appreciate heme onc assistance - continue dexamethasone 40 mg qd - holding home apixaban (for afib) - continue PO BID PPI ?? #KALEIGH, likely pre-renal, improving - avoid nephrotoxins - continue to trend Cr - encourage PO intake? #Acute hypoxic respiratory failure secondary to pulmonary edema, pleural effusions, atelectasis #Anasarca likely 2/2 prior chemotherapy meds - continue supplemental oxygen - reportedly outside CT chest showed pulmonary edema, pleural effusions, and atelectasis - restarted home lasix PO 80 on 10/24 - holding home amiloride at this time given KALEIGH ?? #Home medications - continue home levothyroxine - holding home apixaban - home diltiazem continued (240 mg XR converted / reduced to 45 mg q6hr) - continue home paroxetine 20 mg ?? Routine Diet: Regular diet DVT: holding home apixaban given thrombocytopenia GI: PPI BID Dispo: pending clinical course CODE: Attempt Cardiopulmonary Resuscitation - Inpatient DPOA:?Primary Emergency Contact: Nba Jaramillo ?? Daniel Green MD 10/25/2022 Associated attestation - Saul Randolph III, MD - 10/26/2022 12:32 PM EDT Attending Attestation and Certification Please see Daniel Green MD's note for details of the patient history of presentation and data. I have discussed, reviewed and agree with the documented History, Physical findings, Assessment and Plan of care. I have examined the patient myself and personally reviewed all studies. In addition, I certify thatI am a D-H credentialed attending provider with admitting privileges and that the patient meets or has met medical necessity to require an inpatient IPI level of care meeting a minimum of two midnights or is on the [facility] inpatient only procedure list (status C) due to: ITP * Irineo Roberts RN - 10/25/2022 6:33 AM EDT Patient Summary Reason for admission: Hematemesis, low H/H, and platelets, Relevant PMH: Thymic cancer, Afib, on elaquis, Hypothyroidism, depression Significant 24 hour events: 10/24 PM: Patient AAOx4, vital signs stable, on 3 liters nasal cannula, dyspnea on exertion, anasarca, dressing to lower extremities awaiting wound care consult(blisters), legs elevated on pillow. Riley catheter with good urine output. Action List Di[facility]se Wound Care * Dennise Peres MD - 10/24/2022 7:25 AM EDT Inpatient - Progress Note Admit Date: 10/22/2022 Hospital Day 2 days Problem List: Active Hospital Problems Diagnosis ??? Platelet disorder Resolved Hospital Problems No resolved problems to display. Active Non-Hospital Problems Diagnosis ??? Abnormal uterine bleeding ??? Pancytopenia ??? Atrial fibrillation ??? Essential hypertension ??? Hypothyroidism ??? Thymic carcinoma 24 Hour Events: - started on dexamethasone for ITP - no further signs of bleeding Subjective: - feels okay this morning, would like to know if she can take her home lasix Physical Exam: Last Set of Vitals and range of vitals over past 24 hours: Last value Range last 24 hrs Temperature Temp: 36.8 ??C (98.2 ??F) Temp: [36.4 ??C (97.5 ??F)-36.8 ??C (98.2 ??F)] Heart Rate Heart Rate: 77 Heart Rate: [77-87] Blood Pressure BP: 117/71 BP: (91-120)/(63-79) Respiratory Rate Resp: 24 Resp: [14-28] SpO2 SpO2: 94 % SpO2: [91 %-98 %] Physical Exam Gen: NAD. A&Ox3. Sitting up in bed eating breakfast. HEENT: No scleral icterus. Moist mucous membranes. CV: Irregularly irregular rhythm. Normal rate. 3/6 murmur best appreciated over LUSB. Pulm: clear to ascultation bilaterally in the anterior lung kim. Abd: Significant anasarca with hard, indurated texture over abdomen. Nontender to palpation. Ext: significant non-pitting edema with tenderness and fausto discoloration in bilateral lower extremities. Also has similarly textured patches of indurated skin on forearms. Neuro: alert and appropriate. Non-focal. Grossly intact. Psych: cooperative, calm, pleasant Laboratory (Last 24 Hours): Last 3 wbc, hgb, hct plt Recent Labs 10/24/22 0140 10/23/22 1510 10/23/22 1200 WBC 2.0* 2.2* 2.2* HGB 7.2* 6.3* 6.7* HCT 22.1* 19.7* 20.8* PLATELET 8* 6* 6* Last 3 Lytes Recent Labs 10/24/22 0140 10/23/22 0638 10/22/22 2310 NA 135 131* 132* K 4.0 4.1 4.2 CL 97* 95* 94* CO2 27 27 27 BUN 60* 63* 58* CREATININE 1.42* 1.65* 1.69* Last 3 LFTs Recent Labs 10/22/22 2310 AST 23 ALT 6 ALKPHOS 49 BILITOT 1.5* BILIDIR 0.7* Last Ca, Mg, Phos Recent Labs 10/24/22 0140 CALCIUM 8.5 MAGNESIUM 0.89 Microbiology: No pertinent positives Radiology: No orders to display Other Studies: No pertinent positives Assessment: Brayan Jaramillo is a 67 y.o. 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 ?? Lack of response to platelet transfusion most consistent with ITP. Will continue treatment with Dexamethasone today. Will continue to defer engaging GI unless recurrent bleeding develops. Will transition IV PPI to oral today. Plan as below. ? PLAN: ?? 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 #KALEIGH, likely pre-renal, improving - avoid nephrotoxins - continue to trend Cr - encourage PO intake? #Acute hypoxic respiratory failure secondary to pulmonary edema, pleural effusions, atelectasis - continue supplemental oxygen - reportedly outside CT chest showed pulmonary edema, pleural effusions, and atelectasis - holding home lasix and amiloride at this time given possibility of further bleeding but day team could restart tomorrow if no further bleeding ?? #Home medications - continue home levothyroxine - holding home apixaban - home diltiazem continued (240 mg XR converted / reduced to 45 mg q6hr) - continue home paroxetine 20 mg ?? Routine Diet: Regular diet DVT: holding home apixaban given thrombocytopenia GI: PPI BID Dispo: pending clinical course CODE: Attempt Cardiopulmonary Resuscitation - Inpatient DPOA:?Primary Emergency Contact: Nba Jaramillo, ?? Dennise Peres MD 10/24/2022 Associated attestation - Saul Randolph III, MD - 10/25/2022 1:08 PM EDT Attending Attestation and Certification Please see Dennise Peres MD's note for details of the patient history of presentation and data. I have discussed, reviewed and agree with the documented History, Physical findings, Assessment and Plan of care. I have examined the patient myself and personally reviewed all studies. In addition, I certify thatI am a [facility]-H credentialed attending provider with admitting privileges and that the patient meets or has met medical necessity to require an inpatient IPI level of care meeting a minimum of two midnights or is on the CMS inpatient only procedure list (status C) due to: ITP * Evelina Rock RN - 10/24/2022 1:10 AM EDT Received pt to rm at approximately 0110 from ICU. VSS, Masimo set up. Decreased O2 from 3.5L to 3L.Pt tolerating well. Oriented to room. LSCTA diminished. BS active. abd rounded and taut. BLE edematous and wrapped. Dressings are CDI. PPP bilat. Labs drawn from R chest port. Flushes easily with positive blood return. Riley in place draining clear yellow urine to gravity. * Jonatan Mendosa RN - 10/23/2022 7:28 PM EDT OUTCOME EVALUATION NOTE: OUTCOME SUMMARY: Pt A+OX4. VSS on 4L NC. Pt in Afib throughout shift. Adequate UOP via riley. No BM this shift. Platelets X1 administered. PRBCs X1 administered. Pt tolerated well. PLAN MOVING FORWARD: -Monitor CBC -Monitor oxygenation INDIVIDUALIZED FALL PREVENTION INTERVENTIONS: Patient-specific fall risk factors per assessment: [current deficits]: Lines/cords, unfamiliar environment, generalized weakness Assistance [level of assistance required for transfers and ambulation]: Assist X2 Supervision [direct monitoring required during toileting and ADLs]: Frequent rounding, uses call wallace appropriately Surveillance [continuous indirect monitoring]: Pulse ox, telemetry * Daniel Green MD - 10/23/2022 3:07 PM EDT Hospital Medicine Brief Interval Update Pt downgraded to hospital medicine this morning. On interview, she is pleasant in NAD. 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 Pt lives in [place], [place] near [facility] and receives her oncologic care in [facility]. 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 We spoke with the hematology team this morning who reported that permetrexed can cause bone marrow suppression, but it would be surprising to see platelet levels this low from medication only. Of note, pt received a unit of platelets around 2am 10/23 but her post-transfusion platelet count did not change (5->5). This raises concern for some process causing platelet destruction, such as ITP. She received another unit of platelets around 2pm and we will follow up with CBC 30- 60 minutes post-transfusion to see if her platelet count rises appropriately. If it does not respond, will give dexamethasone 40mg qd x4 days. Appreciate hematology recs. In terms of the source of her bleeding, for now we have resumed a regular diet. She is continuing on IV BID PPI. Should she have further episodes of hematemesis or become hemodynamically unstable, wewill reach out to GI for possible scope. Daniel Green MD 10/23/22 [facility] Medicine [place] Team Pager [phone] documented in this encounter H&P Notes * Sydney Felix PA - 11/02/2022 8:35 AM EDT Images from the original note were not included. Interventional Radiology Focused Pre-procedure H&P: PCP: Jerzy Vidal MD Referring Provider: Sameer Llamas Planned procedure: Right thoracentesis Procedure indication: Right pleural fluid, aortic stenosis, thymic cancer IR workflow: Procedure request received through Interventional Radiology eDH order queue. Order Questions Answers What is the purpose of the study? Therapeutic and Diagnostic Reason for exam and clinical history: Recurrent R pleural effusion, likely 2/2 aortic stenosis Is the patient on anticoagulant / antiplatelet therapy ? DOAC (Direct Oral Anticoagulant) Is the patient taking any anticoagulants and/or antiplatelet meds? Yes Is patient awake, alert, and consentable? Yes Does patient need assist to stand? Yes Does Patient have any mobility limitations (e.g. spinal precautions) No Does patient require constant supervision? No Is patient over 450 lbs (200 kg) No Does patient have a pacemaker? No Does patient have a Chest Tube? No Is there a language / communication barrier? No History of Present Illness: Per chart review, Brayan Jaramillo is a 67 y.o. female with PMH of thymic CA currently admitted to medical floor for ITP and aortic stenosis who presents to Interventional Radiology to undergo R therapeutic and diagnostic thoracentesis. Last R thoracentesis on 10/[address] brody of 750 cc. Remainder of patient's medical and surgical history, allergies, medications, and social/family history obtained below as previously outlined in patient's medical record. IR History: As above Imagin11/01/22 Assessment: 67 y.o. female with R pleural fluid presenting to Interventional Radiology for R thoracentesis. Plan Planned procedure: Right thoracentesis Labs to be performed day of procedure: No labs Sedation: No Sedation Prophylactic antibiotic : None Contrast: No contrast Additional medications for procedure: Lidocaine Position: Supine Consent: Pending Medications to discontinue (and days held): None Cytopathology presence needed: No Case Urgency:: E- Elective IN-patient intervention within 3 days Labs: Lab Results Component Value Date HGB 7.1 (L) 11/02/2022 HCT 23.8 (L) 11/02/2022 WBC 7.3 11/02/2022 PLATELET 132 (L) 11/02/2022 INR 1.8 10/22/2022 BUN 20 (H) 11/02/2022 CREATININE 0.83 11/02/2022 ALBUMIN 2.6 (L) 10/22/2022 BILIDIR 0.7 (H) 10/22/2022 BILITOT 1.5 (H) 10/22/2022 AST 23 10/22/2022 ALT 6 10/22/2022 ALKPHOS 49 10/22/2022 Allergies: Carboplatin, Penicillins, and Pollen extracts Medications: No current facility-administered medications on file prior to encounter. Current Outpatient Medications on File Prior to Encounter Medication Sig Dispense Refill ??? aMILoride (Midamor) 5 mg tablet TAKE ONE TABLET BY MOUTH EVERY DAY 30 tablet 3 ??? levothyroxine (Synthroid) 150 mcg tablet TAKE ONE TABLET BY MOUTH EVERY DAY 30 tablet 5 ??? folic acid (Folvite) 1 mg Tablet Take 1 mg by mouth daily. ??? magnesium oxide (Mag-Ox) 400 mg (241.3 mg magnesium) Tablet TAKE ONE TABLET BY MOUTH THREE TIMES A DAY 90 tablet 5 ??? furosemide (Lasix) 40 mg Tablet Take 2 tablets by mouth daily. 60 tablet 5 ??? PARoxetine (Paxil) 20 mg Tablet Take 1 tablet by mouth every morning. 90 tablet 3 ??? traZODone (Desyrel) 50 mg Tablet Take 1 tablet by mouth nightly. (Patient not taking: Reported on 06/23/2022) 30 tablet 3 ??? LORazepam (Ativan) 0.5 mg Tablet Take 1 tablet by mouth every 6 hours as needed for Anxiety. (Patient not taking: Reported on 03/12/2022) 30 tablet 3 ??? potassium chloride ER (K-Dur/Klor-Con) 20 mEq Tab Sust.Rel. Particle/Crystal Take 1 tablet by mouth daily. 30 tablet 5 ??? ondansetron (Zofran) 8 mg Tablet Take 1 tablet by mouth every 8 hours as needed for Nausea. (Patient not taking: Reported on 12/18/2021) 20 tablet 3 ??? prochlorperazine (Compazine) 10 mg Tablet Take 1 tablet by mouth every 6 hours as needed for Nausea. (Patient not taking: Reported on 12/18/2021) 20 tablet 3 ??? fluticasone propionate (FLOVENT) 44 mcg/actuation HFA Aerosol Inhaler Inhale 2 puffs into the lungs 2 times daily. (Patient not taking: Reported on 05/20/2021) 1 Inhaler 2 ??? ALBUTEROL INHL Inhale 2 puffs into the lungs every 4 hours as needed. ??? acetaminophen (TYLENOL) 500 mg Tablet Take 1,000 mg by mouth every 6 hours as needed for Pain. ??? ascorbic acid, vitamin C, (VITAMIN C) 500 mg Tablet, Chewable Take 1 tablet by mouth daily. ??? DILTiazem (CARDIZEM CD) 240 mg Capsule, Sust. Release 24 hr Take 240 mg by mouth daily. Indications: Ventricular Rate Control in Atrial Fibrillation ??? apixaban (Eliquis) 5 mg Tablet Take 5 mg by mouth 2 times daily. ??? multivitamin (THERAGRAN) Tablet Take 1 tablet by mouth daily. Past Medical/Surgical history: Patient Active Problem List Diagnosis Code ??? Thymic carcinoma C37 ??? Pancytopenia D61.818 ??? Atrial fibrillation I48.91 ??? Essential hypertension I10 ??? Hypothyroidism E03.9 ??? Abnormal uterine bleeding N93.9 ??? Platelet disorder D69.1 Past Medical History: Diagnosis Date ??? Atrial fibrillation ??? HTN (hypertension) ??? Obesity ??? Thymic cancer 04/2017 ??? 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 Ventral hernia Past Surgical History: Procedure Laterality Date ??? APPENDECTOMY 2002 ??? BREAST BIOPSY ??? SECTION ??? HERNIA REPAIR 2005 ??? IR THORACENTESIS RIGHT 10/28/2022 IR Thoracentesis Right 10/28/2022 John Durand MD [facility] INTERVENTIONL RAD ??? SOFT TISSUE BIOPSY 03/22/2017 ??? THORACENTESIS Social History and Habits: Social History Tobacco Use ??? Smoking status: Never ??? Smokeless tobacco: Never Vaping Use ??? Vaping Use: Never used Substance Use Topics ??? Alcohol use: Never ??? Drug use: Never Significant Family History: Family History Problem Relation Age of Onset ??? Colorectal Cancer Mother Pertinent ROS: as per HPI Physical Exam: Pending (to be performed in IR the day of procedure) ASA: Pending (to be assessed in IR the day of procedure) Mallampati class: Pending (to be assessed in IR the day of procedure) 11/02/2022 Sydney Felix PA-C * Dimitry Rosales PA - 10/28/2022 2:18 PM EDT Images from the original note were not included. Interventional Radiology Focused Pre-procedure H&P: PCP: Jerzy Vidal MD Procedure indication: Pleural fluid, thymic cancer, hypoxia IR workflow: Procedure request received through the Interventional Radiology eDH order queue. History of present illness: Per chart review, Brayan Jaramillo is a 67 y.o. female who presents to Interventional Radiology to undergo right thoracentesis in setting of hypoxia. 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 Chest radiograph demonstrated pleural fluid. She has persistent O2 requirement despite diuresis. Remainder of patient's medical and surgical history, allergies, medications, and social/family history obtained below as previously outlined in patient's medical record. Imaging: Assessment: 67 y.o. female with pleural fluid and hypoxia presenting to Interventional Radiology for thoracentesis. Plan Planned procedure: Right thoracentesis Labs to be performed day of procedure: No labs Sedation: No Sedation Prophylactic antibiotic : None Contrast: No contrast Additional medications for procedure: Lidocaine Consent: Pending Medications to discontinue (and days held): None Cytopathology presence needed: No Case Urgency:: E- Elective IN-patient intervention within 3 days Labs: Lab Results Component Value Date HGB 7.0 (L) 10/28/2022 HCT 22.5 (L) 10/28/2022 WBC 3.8 (L) 10/28/2022 PLATELET 43 (L) 10/28/2022 INR 1.8 10/22/2022 BUN 62 (H) 10/28/2022 CREATININE 1.27 (H) 10/28/2022 ALBUMIN 2.6 (L) 10/22/2022 BILIDIR 0.7 (H) 10/22/2022 BILITOT 1.5 (H) 10/22/2022 AST 23 10/22/2022 ALT 6 10/22/2022 ALKPHOS 49 10/22/2022 Allergies: Carboplatin, Penicillins, and Pollen extracts Medications: No current facility-administered medications on file prior to encounter. Current Outpatient Medications on File Prior to Encounter Medication Sig Dispense Refill ??? aMILoride (Midamor) 5 mg tablet TAKE ONE TABLET BY MOUTH EVERY DAY 30 tablet 3 ??? levothyroxine (Synthroid) 150 mcg tablet TAKE ONE TABLET BY MOUTH EVERY DAY 30 tablet 5 ??? folic acid (Folvite) 1 mg Tablet Take 1 mg by mouth daily. ??? magnesium oxide (Mag-Ox) 400 mg (241.3 mg magnesium) Tablet TAKE ONE TABLET BY MOUTH THREE TIMES A DAY 90 tablet 5 ??? furosemide (Lasix) 40 mg Tablet Take 2 tablets by mouth daily. 60 tablet 5 ??? PARoxetine (Paxil) 20 mg Tablet Take 1 tablet by mouth every morning. 90 tablet 3 ??? traZODone (Desyrel) 50 mg Tablet Take 1 tablet by mouth nightly. (Patient not taking: Reported on 06/23/2022) 30 tablet 3 ??? LORazepam (Ativan) 0.5 mg Tablet Take 1 tablet by mouth every 6 hours as needed for Anxiety. (Patient not taking: Reported on 03/12/2022) 30 tablet 3 ??? potassium chloride ER (K-Dur/Klor-Con) 20 mEq Tab Sust.Rel. Particle/Crystal Take 1 tablet by mouth daily. 30 tablet 5 ??? ondansetron (Zofran) 8 mg Tablet Take 1 tablet by mouth every 8 hours as needed for Nausea. (Patient not taking: Reported on 12/18/2021) 20 tablet 3 ??? prochlorperazine (Compazine) 10 mg Tablet Take 1 tablet by mouth every 6 hours as needed for Nausea. (Patient not taking: Reported on 12/18/2021) 20 tablet 3 ??? fluticasone propionate (FLOVENT) 44 mcg/actuation HFA Aerosol Inhaler Inhale 2 puffs into the lungs 2 times daily. (Patient not taking: Reported on 05/20/2021) 1 Inhaler 2 ??? ALBUTEROL INHL Inhale 2 puffs into the lungs every 4 hours as needed. ??? acetaminophen (TYLENOL) 500 mg Tablet Take 1,000 mg by mouth every 6 hours as needed for Pain. ??? ascorbic acid, vitamin C, (VITAMIN C) 500 mg Tablet, Chewable Take 1 tablet by mouth daily. ??? DILTiazem (CARDIZEM CD) 240 mg Capsule, Sust. Release 24 hr Take 240 mg by mouth daily. Indications: Ventricular Rate Control in Atrial Fibrillation ??? apixaban (Eliquis) 5 mg Tablet Take 5 mg by mouth 2 times daily. ??? multivitamin (THERAGRAN) Tablet Take 1 tablet by mouth daily. Past medical/surgical history: Patient Active Problem List Diagnosis Code ??? Thymic carcinoma C37 ??? Pancytopenia D61.818 ??? Atrial fibrillation I48.91 ??? Essential hypertension I10 ??? Hypothyroidism E03.9 ??? Abnormal uterine bleeding N93.9 ??? Platelet disorder D69.1 Past Medical History: Diagnosis Date ??? Atrial fibrillation ??? HTN (hypertension) ??? Obesity ??? Thymic cancer 04/2017 ??? 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 Ventral hernia Past Surgical History: Procedure Laterality Date ??? APPENDECTOMY 2003 ??? BREAST BIOPSY ??? SECTION ??? HERNIA REPAIR 2006 ??? SOFT TISSUE BIOPSY 03/22/2017 ??? THORACENTESIS Social history and habits: Social History Tobacco Use ??? Smoking status: Never ??? Smokeless tobacco: Never Vaping Use ??? Vaping Use: Never used Substance Use Topics ??? Alcohol use: Never ??? Drug use: Never Significant family history: Family History Problem Relation Age of Onset ??? Colorectal Cancer Mother Pertinent ROS: as per HPI Physical exam: Pending (to be performed in interventional radiology the day of procedure) ASA: Pending (to be assessed in interventional radiology the day of procedure) Mallampati class: Pending (to be assessed in interventional radiology the day of procedure) 10/28/2022 KIMBERLY Moreno * Joey Gutierres MD - 10/23/2022 12:01 AM EDT [facility] Medicine History & Physical Patient info: Name: Brayan Jaramillo : 1955 PCP: Jerzy Vidal MD PCP Date of Admission: 10/22/2022 ( Hospital Day 1 day ) Responsible Attending:Fuad Otero MD ID: Brayan Jaramillo is a 67 y.o. female w/ PMH of stage IV thymic cancer (undergoing chemo with permetrexed), atrial fibrillation, hypothyroidism, and depression, on HD# 1 for hematemesis vs hemoptysis in the setting of severe thrombocytopenia. HPI: Patient was transferred earlier today from [facility] to the [facility] initially. Per Dr. Douglas's MICU H&P earlier this evening: This is a very pleasant 67 year old actively undergoing chemotherapy for thymic cancer. She presented to an outside hospital for hematemesis of 4 teaspoons of blood. Brayan has a GI history only significant for a normal EGD done 3-4 decades ago for GERD but her GI history is otherwise unremarkable including no alcohol use history. She currently has no pain or localizing evidence of infection inclu ding denying abdominal pain, dysuria, or productive cough. She does endorse some abdominal and thigh swelling which she reports began several months ago when she was started on everolimus for her thymic cancer. ?? Her PMH is significant otherwise for AF for which she is on dilt and Eliquis, hypothyroidism, and depression. She does not drink alcohol or use recreational substances. She is a full code. ?? At the outside hospital, the patient was found to have plts of 3 and hemoglobin of 7.1 Due to lack of access to platelets, transfer was requested to [facility]. She received one unit of pRBCs prior to transfer. She never required pressors and is satting well on NC. Patient did not have any indications for ICU care so she was therefore downgraded to hospital medicine around 11pm. When seen at that time, she was sitting comfortably in bed, on 4L O2 (baseline roomair). She tells me that she does not believe that she had coughed up any blood; believes instead itcame from her esophagus. She states that before the first episode, she had quite significant heart burn. ROS: As stated above. Past Medical History: Diagnosis Date ??? Atrial fibrillation ??? HTN (hypertension) ??? Obesity ??? Thymic cancer 04/2017 ??? 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 Ventral hernia Past Surgical History: Procedure Laterality Date ??? APPENDECTOMY 2002 ??? BREAST BIOPSY ??? SECTION ??? HERNIA REPAIR 2005 ??? SOFT TISSUE BIOPSY 03/22/2017 ??? THORACENTESIS Family History Problem Relation Age of Onset ??? Colorectal Cancer Mother Social History Tobacco Use ??? Smoking status: Never ??? Smokeless tobacco: Never Vaping Use ??? Vaping Use: Never used Substance Use Topics ??? Alcohol use: Never ??? Drug use: Never Medications Prior to Admission Medication Sig Dispense Refill Last Dose ??? aMILoride (Midamor) 5 mg tablet TAKE ONE TABLET BY MOUTH EVERY DAY 30 tablet 3 ??? levothyroxine (Synthroid) 150 mcg tablet TAKE ONE TABLET BY MOUTH EVERY DAY 30 tablet 5 ??? folic acid (Folvite) 1 mg Tablet Take 1 mg by mouth daily. ??? magnesium oxide (Mag-Ox) 400 mg (241.3 mg magnesium) Tablet TAKE ONE TABLET BY MOUTH THREE TIMES A DAY 90 tablet 5 ??? furosemide (Lasix) 40 mg Tablet Take 2 tablets by mouth daily. 60 tablet 5 ??? PARoxetine (Paxil) 20 mg Tablet Take 1 tablet by mouth every morning. 90 tablet 3 ??? traZODone (Desyrel) 50 mg Tablet Take 1 tablet by mouth nightly. (Patient not taking: Reported on 06/23/2022) 30 tablet 3 ??? LORazepam (Ativan) 0.5 mg Tablet Take 1 tablet by mouth every 6 hours as needed for Anxiety. (Patient not taking: Reported on 03/12/2022) 30 tablet 3 ??? potassium chloride ER (K-Dur/Klor-Con) 20 mEq Tab Sust.Rel. Particle/Crystal Take 1 tablet by mouth daily. 30 tablet 5 ??? ondansetron (Zofran) 8 mg Tablet Take 1 tablet by mouth every 8 hours as needed for Nausea. (Patient not taking: Reported on 12/18/2021) 20 tablet 3 ??? prochlorperazine (Compazine) 10 mg Tablet Take 1 tablet by mouth every 6 hours as needed for Nausea. (Patient not taking: Reported on 12/18/2021) 20 tablet 3 ??? fluticasone propionate (FLOVENT) 44 mcg/actuation HFA Aerosol Inhaler Inhale 2 puffs into the lungs 2 times daily. (Patient not taking: Reported on 05/20/2021) 1 Inhaler 2 ??? ALBUTEROL INHL Inhale 2 puffs into the lungs every 4 hours as needed. ??? acetaminophen (TYLENOL) 500 mg Tablet Take 1,000 mg by mouth every 6 hours as needed for Pain. ??? ascorbic acid, vitamin C, (VITAMIN C) 500 mg Tablet, Chewable Take 1 tablet by mouth daily. ??? DILTiazem (CARDIZEM CD) 240 mg Capsule, Sust. Release 24 hr Take 240 mg by mouth daily. Indications: Ventricular Rate Control in Atrial Fibrillation ??? apixaban (Eliquis) 5 mg Tablet Take 5 mg by mouth 2 times daily. ??? multivitamin (THERAGRAN) Tablet Take 1 tablet by mouth daily. Allergies Allergen Reactions ??? Carboplatin ??? Penicillins Hives ??? Pollen Extracts Other (See Comments) rhinorrhea Objective: Vitals Last value Range last 24 hrs Temperature Temp: 36.6 ??C (97.9 ??F) Temp: [36.6 ??C (97.9 ??F)] Heart Rate Heart Rate: 77 Heart Rate: [77-88] Blood Pressure BP: 112/62 BP: (105-112)/(58-62) Art Line BP BP (Arterial Line): -- MAP (NBP): [70 mmHg-79 mmHg] Respiratory Rate Resp: 18 Resp: [18-20] SpO2 SpO2: 95 % SpO2: [95 %] Oxygen Delivery Oxygen Therapy O2 Device: Nasal cannula O2 Flow Rate (L/min): 4 L/min No intake or output data in the 24 hours ending 10/23/22 0030 Patient Vitals for the past 168 hrs: Weight 10/22/22 2152 110.2 kg (242 lb 15.2 oz) Admit wt: 110.2 kg Physical Exam: Gen: NAD. A&Ox3. HEENT: No scleral icterus. Moist mucous membranes. No blood in the visible oropharynx. CV: Irregularly irregular rhythm. Normal rate. Pulm: clear to ascultation bilaterally in the posterior lung kim. Abd: Significant anasarca with hard, indurated texture over abdomen. Nontender to palpation. Ext: significant non-pitting edema with tenderness and fausto discoloration in bilateral lower extremities. Also has similarly textured patches of indurated skin on forearms. Skin over abdomen is similarly very firm and swollen. Neuro: alert and appropriate. Non-focal. Grossly intact. Psych: cooperative, calm, pleasant Medications: ??? furosemide 80 mg Oral Daily ### ??? levothyroxine 150 mcg Oral Daily ### ??? PARoxetine 20 mg Oral QAM ### ??? dilTIAZem 45 mg Oral Q6H [facility] ### Labs: No results for input(s): WBC, HGB, HCT, PLATELET, NEUTROABS in the last 168 hours. Recent Labs 10/22/22 2310 NA 132* K 4.2 CL 94* CO2 27 BUN 58* CREATININE 1.69* GLUCOSE 101 ANIONGAP 11 Recent Labs 10/22/22 231 CALCIUM 8.1* MAGNESIUM 0.92 Recent Labs 10/22/22 231 BILITOT 1.5* BILIDIR 0.7* ALBUMIN 2.6* ALKPHOS 49 ALT 6 AST 23 Recent Labs 10/22/222309 PT 20.5* INR 1.8 PTT 35 FIBRINOGEN 578* DDIMER 12,895* No results for input(s): TROPONINT, CK, PROBNP in the last 7068 hours. No results for input(s): TSH, CORTISOL in the last 7068 hours. Invalid input(s): [id number] No results for input(s): HA1C in the last 7068 hours. Recent Labs 10/22/22 2310 LDH 220 No results found for: PHART, PO2ART, QFQ3XQK, ETW6NOA Microbiology: N/A Pertinent radiology/diagnostic studies: No results found for this visit on 10/22/22. ASSESSMENT: Brayan Jaramillo is a 67 y.o. female w/ PMH of stage IV thymic cancer (undergoing chemo with permetrexed), atrial fibrillation, hypothyroidism, and depression, admitted for hematemesis vs hemoptysis in the setting of severe thrombocytopenia. After discussion with patient, it does sound like source of blood was more likely to come from oropharynx / GI tract rather than lower airway. It was a small amount and she reports that for all except for the first time, it was specs of blood mixed in clear substance which is reassuring against an ongoing active bleed. Given possibility of GI source, will start IV PPI. Will transfuse platelets once thrombocytopenia confirmed here. Heme-Onc consulted to help work up cause of thrombocytopenia; one possibility is her chemo medication. Notably, on outside labs from 10/14 (from [facility]), hemoglobin was 8.6 and platelets were 68k at that time suggesting an acute on chronic thrombocytopenia / anemia. PLAN: #Severe thrombocytopenia, possibly secondary to chemotherapy #Hematemesis vs hemoptysis #Anemia, acute on chronic - Heme-Onc consulted - anemia lab work-up ordered: coags, DIC panel, iron studies, copperDH, folate, B12, haptoglobin, LDH, peripheral smear, HIV, HCV - type & screen ordered, consented for transfusion - s/p 1 unit of RBC prior to transfer from [facility] - will transfuse platelets tonight once initial hemogram comes back - holding home apixaban (for afib) - NPO given possible GI source - IV PPI BID for now until GI source ruled out - GI not consulted overnight given small volume and also lack of clear source (also severity of thrombocytopenia making EGD risky), but day team could consider GI consult in the AM - Notably, on outside labs from 10/14 (from [facility]), hemoglobin was 8.6 and platelets were 68k at that time #[place], intrinsic vs pre-renal most likely - Cr is 1.69 today, was 1.12 on 10/14 (per [facility]) - UA pending - holding home diuretics for now given concern for bleeding - monitoring with daily labs #Acute hypoxic respiratory failure secondary to pulmonary edema, pleural effusions, atelectasis - continue supplemental oxygen - reportedly outside CT chest showed pulmonary edema, pleural effusions, and atelectasis - holding home lasix and amiloride at this time given possibility of further bleeding but day team could restart tomorrow if no further bleeding #Home medications - continue home levothyroxine - holding home apixaban given bleeding - home diltiazem continued (240 mg XR converted / reduced to 45 mg q6hr) - continue home paroxetine 20 mg Routine Diet: NPO DVT: holding home apixaban given thrombocytopenia GI: PPI IV BID Dispo: downgrade from MICU to floor CODE: Attempt Cardiopulmonary Resuscitation - Inpatient DPOA: Primary Emergency Contact: EllaNbaNeftali Joey Gutierres MD, PGY3 10/23/2022 Associated attestation - Saul Randolph III, MD - 10/24/2022 10:12 AM EDT Attending Staff Documentation I have examined the patient and reviewed all labs and studies personally. Please see Dr. Gutierres's documentation for details of the patient history of presentation and data. I have discussed, reviewed and agree with the documented history with ROS, physical findings, labs/studies, assessment and plan of care of this patient * Kyrie Douglas MD - 10/22/2022 10:12 PM EDT [facility] History & Physical Patient info: Name: Brayan Jaramillo : 1955 PCP: Jerzy Vidal MD PCP phone number: [phone] Date of Admission: 10/22/2022 ( Hospital Day 0 days ) Attending: Cindy Yadav MD ID: Brayan Jaramillo is a 67 y.o. female with a PMH of thymic cancer undergoing chemotx, atrial fibrillation, hypothyroidism, depression admitted for thrombocytopenia. HPI: This is a very pleasant 67 year old actively undergoing chemotherapy for thymic cancer. She presented to an outside hospital for hematemesis of 4 teaspoons of blood. Brayan has a GI history only significant for a normal EGD done 3-4 decades ago for GERD but her GI history is otherwise unremarkable including no alcohol use history. She currently has no pain or localizing evidence of infection including denying abdominal pain, dysuria, or productive cough. She does endorse some abdominal and thighswelling which she reports began several months ago when she was started on everolimus for her thymic cancer. Her PMH is significant otherwise for AF for which she is on dilt and Eliquis, hypothyroidism, and depression. She does not drink alcohol or use recreational substances. She is a full code. At the outside hospital, the patient was found to have plts of 3 and hemoglobin of 7.1 Due to lack of access to platelets, transfer was requested to [facility]. She received one unit of pRBCs prior to transfer. She never required pressors and is satting well on NC. Review of Systems See HPI. PMH Past Medical History: Diagnosis Date ??? Atrial fibrillation ??? HTN (hypertension) ??? Obesity ??? Thymic cancer 04/2017 ??? 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 Ventral hernia PSH Past Surgical History: Procedure Laterality Date ??? APPENDECTOMY 2002 ??? BREAST BIOPSY ??? SECTION ??? HERNIA REPAIR 2005 ??? SOFT TISSUE BIOPSY 03/22/2017 ??? THORACENTESIS Family History Family History Problem Relation Age of Onset ??? Colorectal Cancer Mother Social History Social History Socioeconomic History ??? Marital status: Spouse name: Not on file ??? Number of children: Not on file ??? Years of education: Not on file ??? Highest education level: Not on file Occupational History ??? Not on file Tobacco Use ??? Smoking status: Never ??? Smokeless tobacco: Never Vaping Use ??? Vaping Use: Never used Substance and Sexual Activity ??? Alcohol use: Never ??? Drug use: Never ??? Sexual activity: Never Other Topics Concern ??? Not on file Social History Narrative ??? Not on file Social Determinants of Health Financial Resource Strain: Not on file Food Insecurity: Not on file Transportation Needs: Not on file Physical Activity: Not on file Housing Stability: Not on file Allergies: Allergies Allergen Reactions ??? Carboplatin ??? Penicillins Hives ??? Pollen Extracts Other (See Comments) rhinorrhea Meds Vasoactive & Sedating Medications: Infusions: Continuous Infusions: Objective: Vitals Last value Range last 24 hrs Temperature Temp: 36.6 ??C (97.9 ??F) Temp: [36.6 ??C (97.9 ??F)] Heart Rate Heart Rate: 77 Heart Rate: [77-88] Blood Pressure BP: 112/62 BP: (105-112)/(58-62) Art Line BP BP (Arterial Line): -- MAP (NBP): [70 mmHg-79 mmHg] Respiratory Rate Resp: 18 Resp: [18-20] SpO2 SpO2: 95 % SpO2: [95 %] Oxygen Delivery Oxygen Therapy O2 Device: Nasal cannula O2 Flow Rate (L/min): 4 L/min Ventilator Settings: Mode: , SET RR: TV: PEEP: FiO2: VARIABLES PATIENT RR: PIP: Pplateau: SpO2: OUTPUT Resp: 18 SpO2: 95 % ABG (Arterial Blood Gas) No results for input(s): PHART, MGY8CCF, PO2ART, FFN8GHC, LACTATEVEN, AGP0GFR, PFRATIOART2 in the last 168 hours. VBG (Venous Blood Gas) No results for input(s): PHVEN, FMI0YRX, PO2VEN, PNQ5QUF, LACTATEVEN in the last 168 hours. Mixed Venous Sat No results for input(s): Y3ZUQE8 in the last 168 hours. No intake or output data in the 24 hours ending 10/22/222 Admit wt: 110.2 kg Patient Vitals for the past 168 hrs: Weight 10/22/22 2152 110.2 kg (242 lb 15.2 oz) Physical Exam: Gen: in bed in NAD HEENT: NCAT, anicteric, EOMI intact CV: RRR, no murmurs/rubs/gallops Resp: CTAB, no crackles/wheezes/ronchi, normal work of breathing Abd: normal bowel sounds, edematous but not tender to palpation, no rebound or guarding Ext: 1+ BLE edema Neuro: no focal deficits noted, CN 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 intact, moves all extremities spontaneously Psych: cooperative. Skin: no rashes, lesions, or ulcerations noted Lines/Drains/Airways Patient Lines/Drains/Airways Status Active Tubes/Lines/Drains Name Placement date Placement time Site Days Implanted Port - Single Lumen Port 05/20/17 1200 infraclavicular fossa, right pressure injectable catheter 05/20/17 1200 -- 1981 Peripheral IV Line - Single Lumen 10/22/222151 cephalic vein (lateral side of arm), left 22 gauge 10/22/222151 -- less than 1 Urethral Catheter 10/22/22215210/22/222152 -- less than 1 Labs: No results for input(s): WBC, HGB, HCT, PLATELET, MCV in the last 168 hours. No results for input(s): NA, CL, CO2, K, MAGNESIUM, PHOS, CALCIUM, BUN, CREATININE in the last 168 hours. LFTs No results for input(s): PROT, ALBUMIN, AST, ALT, ALKPHOS, BILITOT, BILIDIR in the last 168 hours. Coags No results for input(s): INR, PT, PTT, FIBRINOGEN, DDIMER in the last 168 hours. Invalid input(s): THROMBIN TIME Cardiac Enzymes No results for input(s): CK, TROPONINT, PROBNP in the last 168 hours. Endocrine No results for input(s): TSH, CORTISOL in the last 7068 hours. Invalid input(s): CFDFOPZEAAQ2T Recent Labs 10/22/222154 POCGLU 109 Heme No results for input(s): LDH, HAPTOGLOBIN, URICACID in the last 168 hours. ABG (Arterial Blood Gas) No results for input(s): PHART, XIV6BEW, PO2ART, RFM7RMH, LACTATEVEN, IJR3IIK, PFRATIOART2 in the last 168 hours. VBG (Venous Blood Gas) No results for input(s): PHVEN, NQM2IBM, PO2VEN, BBH4JEP, LACTATEVEN in the last 168 hours. Mixed Venous Sat No results for input(s): B4HGBV5 in the last 168 hours. Microbiology: Microbiology Results (Last 30 days) No results found for the last 720 hours. Imaging: No results found for this visit on 10/22/22 (from the past 168 hour(s)). Medications Scheduled Meds: Continuous Infusions: PRN Meds:. Assessment & Plan: Brayan Jaramillo is a 67 y.o. female with a PMH as noted above who is admitted for thrombocytopenia.Brayan is currently doing well without any further episodes of hematemesis both in transit to [facility] or since her stay here. Hematemesis likely just result of significant thrombocytopenia rather than anunderlying GI mass or varices. No pain and no localizing signs of infection. Will send off initial bloodwork for thrombocytopenia workup and consult heme as well. Neuro #Depression - Home paroxetine Cardiovascular #AF - Hold Eliquis given thrombocytopenia - Home diltiazem converted and dose reduced to short acting 45 mg q6h (home dose is 240 mg XR, but will dose reduce a little out of abundance of caution) Pulmonary DONALD Renal/Fluid/Electrolytes DONALD Gastrointestinal/Metabolic/Nutrition #Hypothyroidism - Synthroid home dose Hematology #Thrombocytopenia #Anemia - F/u DIC screen, peripheral smear, HIV, hep C, haptoglobin, LDH - Transfuse plts - Consult heme Infection DONALD Routine Diet: NPO diet (Give Meds) DVT Prophylaxis: DOAC SCD Code Status: Attempt Cardiopulmonary Resuscitation - Inpatient DPOA: Primary Emergency Contact: Nba Jaramillo, Neftali Dispo: Pending clinical course Kyrie Douglas MD, PharmD Internal Medicine, PGY-3 Medical ICU Blue Team 10/22/22 documented in this encounter Miscellaneous Notes * Care Management Discharge - Mendy Johnson RN - 11/07/2022 10:08 AM EDT CARE MANAGEMENT FINAL DISCHARGE NOTE Chart reviewed, care reviewed with primary team and at interdisciplinary rounds. Patient is medically ready for discharge to home . Needs for Transition of Care: Plan for discharge is: Home w/ Services Home Health Services: Physical Therapy, Occupational Therapy, Registered Nurse Agency Referrals & Follow-up Care: Contact information for follow-up [facility], [facility] [address] [place] [id number] Transportation: family or friend will provide Wheelchair van/Ambulance? No Functional status prior to admission: Assistive Equipment, Independent Home Environment: Others in the home: child(marv), adult, grandchild(marv) (states her son, PABLO and 2grandchildmarv live with her currently). Current Living Arrangements: home/apartment/condo. Accessibility Concerns:ramp. Current Functional Ability: Assistive Person and Equipment DME used at home: walker - standard, wheelchair - manual DME Needed at Discharge: Patient is insured through: Primary Insurance: [facility] MANAGED MEDICARE Payor: P MANAGED MEDICARE / Plan: [facility] MANAGED MEDICARE / Product Type: *No Product type* / Secondary Insurance: N/A Prescription Coverage: Yes This plan was formulated with input from patient, and team. All are in agreement with plan. Mendy Johnson [facility] [phone] * Plan of Care - Shelby Blackmon RN - 11/07/2022 1:20 AM EDT Problem: Adult Inpatient Plan of Care Goal: [...] Outcome: Ongoing (Interventions Implemented as Appropriate) * Plan of Care - Shelby Blackmon RN - 11/06/2022 5:22 AM EDT Problem: Adult Inpatient Plan of Care Goal: Plan of Care Review Outcome: Ongoing (Interventions Implemented as Appropriate) Goal: Patient-Specific Goal (Individualized) Outcome: Ongoing (Interventions Implemented as Appropriate) Goal: Absence of Hospital-Acquired Illness or Injury Outcome: Ongoing (Interventions Implemented as Appropriate) Goal: Optimal Comfort and Wellbeing Outcome: Ongoing (Interventions Implemented as Appropriate) Goal: Readiness for Transition of Care Outcome: Ongoing (Interventions Implemented as Appropriate) Problem: Fall Injury Risk Goal: Absence of Fall and Fall-Related Injury Outcome: Ongoing (Interventions Implemented as Appropriate) Problem: Pain Acute Goal: Acceptable Pain Control and Functional Ability Outcome: Ongoing (Interventions Implemented as Appropriate) Problem: Self-Care Deficit Goal: Improved Ability to Complete Activities of Daily Living Outcome: Ongoing (Interventions Implemented as Appropriate) * Consult Note - Rani Osei MD - 11/05/2022 2:16 PM EDT Cardio-Palliative Medicine Consultation NAME: Brayan Jaramillo DATE: 11/05/2022 ATTENDING: Douglas Escobedo MD PCP: Jerzy Vidal MD Hospital day: Hospital Day 14 days The Palliative Care Service is asked by Dr. Douglas Escobedo MD to see this patient for : Decision Making: including discussion and assessment of goals of care and advaned care planning. I have reviewed the relevant records, interviewed and examined the patient; she was accompanied by her daughter at the time of our visit. I also spoke with the patient's oncologist, Dr. Schneider, in advance of our visit. History of Present Illness: Brayan Jaramillo is a 67 y.o. female With a history of metastatic thymic cancer (dx 2017, s/p multiple chemotherapy regimens with waxingand waning metastatic disease), atrial fibrillation, hypothyroidism, depression, newly discovered severe aortic stenosis and associated valvular heart failure. For about 3 months prior to presentation, Brayan was developing worsening exertional dyspnea, lower extremity edema, and chest pressure. This significantly impaired her ability to function, even just getting around her house. She reports her quality of life was horrible. She said her legs felt like tree trunks, and she could barely move them. She was no longer able to cook, which is one of her favorite activities. Since coming to the hospital, she has been diuresed a significant amount, and her symptoms have markedly improved. She feels ready to go home. Her breathing is better than it has been in months. Current physical function: 70% Pre-admission physical function and PPS: 50% Patient/family understanding of illness and goals of care: Brayan and Ivana have an excellent illness understanding. Brayan recognizes that she has had terminal cancer for 7 years. She knows that any day could be her last, so chooses to live day by day, enjoying whatever time she has and trying to make the most of it. She acknowledges that it is not up to us to know or decide how long she has. She loves her life, and is grateful for her time. Quality of life is everything for Brayan. What brings quality to her life is being able to be with her family and friends in her home, and spend time together. More than anything, her relationships are what bring her josh. Beyond relationships, she loves cooking, and being able to cook meals for her family means an incredible amount to her. Since her heart failure developed, she has not been able to cook. She cooked a delicious Thanksgiving and [place] dinner for her whole family this past yearbefore she began developing heart failure symptoms. Were goals of care discussed?: Yes Advance Care Planning: Current code status: Attempt Cardiopulmonary Resuscitation - Inpatient Surrogate Decision Maker: Surrogate/MDPA Identified and Documented, Daughter Ivana Ingram is the oldest kid, but Ivana is in charge Advance Directives on file?: No Was an advance directive document completed during consult?: Not completed and none already present. Was one discussed? Was not discussed Does the patient have a completed POLST/MOLST: No POLST/COLST on file. If not, was a POLST/MOLST completed: No If neither, was the completion of a POLST/MOLST discussed: No Which additional treatment preferences have been discussed with the patient other than resuscitation?: TAVR Psychosocial context: Who is considered the patient's primary caregiver? César Ingram and his , whom the patient lives with Social History: Loss history: Brayan's suddenly 15 years ago. He developed a rapidly progressive cancer involving hiscranial nerves, and within a few months of his initial symptoms (within days of diagnosis). Hedied in the hospital, though the family had wished they could have gotten him home. He was Brayan's primary health care legal assistant, and things have been very challenging since his . She misses him dearly. His was traumatic for the family due to how rapidly things progressed. Lives at home with césar Ignram, his , and their two kids. She feels very well taken care of, safe, and happy at home. Coping: Brayan relies on her family, friends and tre. She feels very well supported by these things, and has strong coping strategies as a result. Spiritual Issues: Brayan's tre is very important to her. Allergies as of 10/22/2022 - Review Complete 10/22/2022 Allergen Reaction Noted ??? Carboplatin 05/22/2018 ??? Penicillins Hives 05/26/2017 ??? Pollen extracts Other (See Comments) 05/26/2017 Medications: reviewed in eDH, relevant Palliative Care medications noted below Scheduled: Lasix PHYSICAL EXAMINATION Last value Range last 24 hrs Temperature Temp: 37.1 ??C (98.8 ??F) Temp: [36.9 ??C (98.4 ??F)-37.4 ??C (99.3 ??F)] Heart Rate Heart Rate: 68 Heart Rate: [68-72] Blood Pressure BP: 104/60 BP: (102-113)/(59-66) Respiratory Rate Resp: 16 Resp: [15-16] SpO2 SpO2: 95 % SpO2: [91 %-99 %] Friendly, appears older than stated age Able to walk slowly around her room with a walker Palliative Care Assessment/Recommendations: Brayan has an excellent illness understanding. She has lived with terminal cancer for 7 years, and understands that her time is limited - but also acknowledges that she has outlived predictions. She lives day by day, and appreciates every day that she has. She is entirely guided by quality of life. She derives quality from being home, with her family and friends, spending time together. She also loves cooking, especially large meals for her family. Her heart failure and aortic stenosis symptoms,which developed and progressed over the past 3 months, significantly impaired her ability to do thethings she loves, given her significant dyspnea, lower extremity edema, and chest discomfort. Brayan understands that given this progression of her [...] hospital. They also acknowledge, that without intervention, Brayan's symptoms will likely recur, which will limit her quality of life. Given this, Brayan hopes to proceed with intervention, with a goal ofbeing able to get home and stay home, with fewer heart failure and aortic stenosis symptoms, so that she may better participate in her life, for whatever time she has remaining. Brayan's prognosis remains difficult to predict, especially given that she has outlived previous predications. In discussion with her oncologist, it seems that at this point, a prognosis of a year or less is most likely. Given the potential for this amount of time, and Brayan's significantly symptomsthat due seem likely related to her aortic stenosis, it does seem reasonable to consider intervention if it is technically feasible. She is currently tolerating anticoagulation without bleeding complications. Will discuss with structural cardiology team, who will follow-up with Brayan and her daughter regarding next steps for evaluation and timing for potential valve intervention. Rani Osei MD Advanced Heart Failure and Cardiac Transplant/Palliative Care Palliative care team pager #[phone] minutes were spent on this initial inpatient encounter including time spent in extensive chart review, assessment of and counseling with the patient, and coordination of care with the primary medical team and palliative IDT members. * Consult Note - Roddy Sultana MD - 11/04/2022 2:08 PM EDT Images from the original note were not included. Structural Heart Progress Note Patient info: Name: Brayan Jaramillo : 1955 Date of Admission: 10/22/2022 ( Hospital Day 13 days ) Attending:Douglas Escobedo MD ID: Brayan Jaramillo is a 67 y.o. 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 Now with new persistent O2 requirement and newly discovered severe (ANAHY 0.64 cm2, mGr 48mm Hg, LVEF 65% Hematology/Oncology Consult note 10/22/2022 Brayan has a history of significant marrow suppression with her antineoplastic therapies. She is currently about 2 weeks out from her last treatment with pemetrexed, which had previously led to a WBC in the 3s, hgb in the 5s, and plts in the 60s. With this temporal relation to her therapy, it is reasonable to attribute at least part of her pancytopenia to chemo-related marrow suppression. HPI Discussion with Ms. Jaramillo included her daughter, Cass, who was actively involved in our conversation this afternoon. She notes since initiating her Premextrexed a number of months ago, a new onset of worsening weight gain and severe lower extremity edema. She was initiated Lasix 80 mg daily, which was a new medication for her. Immediately following cycles of her chemo, she noted significantly worsened bilateral LE edema that would slowly improve to baseline shortly before her next cycle. Though she presented with hematemesis and hemoptysis as primary concern for this hospitalization, sheretrospectively notes progressive worsening dyspnea on exertion for the past few months, which advan vidya to chest tightness at rest two days prior to her hospitalization on 10/22/22. Hospital course is significant for thrombocytopenia with index diagnosis of ITP, stabilized with steroids, aggressive diuresis with effective net -22 L fluid balance since admission, And right thoracenteses on 10/28 and 11/02. After diuresis holiday in light of contraction alkalosis, she has been transitioned to Lasix 40 PO today with continued acetazolamide. She notes she feels remarkably improved from a heart failure perspective. She has ambulated around the unit without noted dizziness, dyspnea, chest pain, or chest pressure. Her oxygen requirements, which are new since this admission, have been minimal overnight and not required with exertion today.She feels that her edema of her lower extremities are improved beyond her baseline over the past 6 months. She denies current intolerance to her Eliquis. Patient Active Problem List Diagnosis ??? ','Platelet disorder ??? Abnormal uterine bleeding ??? Pancytopenia ??? Atrial fibrillation Overview Note: Treated with metoprolol, diltiazem, eliquist ??? Essential hypertension ??? Hypothyroidism Overview Note: Secondary to Sutent ??? Thymic carcinoma Focused Active Problem List 1. Severe Aortic Stenosis 2. Moderate Tricuspid Regurgitation 3. Idiopathic Thrombocytopenia 4. Atrial Fibrillation 5. Hemoptysis 6. Macrocytic, Normochromic Anemia Objective Vasoactive & Sedating Medications: Infusions: Continuous Infusions: Ventilator Settings: Mode: , SET RR: TV: PEEP: FiO2: VARIABLES PATIENT RR: PIP: Pplateau: SpO2: OUTPUT Resp: 16 SpO2: 95 % Vitals Last value Range last 24 hrs Temperature Temp: 37.3 ??C (99.1 ??F) Temp: [36.5 ??C (97.7 ??F)-37.8 ??C (100 ??F)] Heart Rate Heart Rate: 72 Heart Rate: [67-73] Blood Pressure BP: 107/64 BP: (100-125)/(56-71) Art Line BP BP (Arterial Line): -- MAP (NBP): [71 mmHg-89 mmHg] Respiratory Rate Resp: 16 Resp: [16] SpO2 SpO2: 95 % SpO2: [94 %-99 %] Oxygen Delivery Oxygen Therapy O2 Device: Nasal cannula O2 Flow Rate (L/min): 0.5 L/min Reason for Oxygen: Acute clinical labored breathing, Subjective dyspnea with no hypoxia Intake/Output Summary (Last 24 hours) at 11/04/2022 1408 Last data filed at 11/04/2022 1200 Gross per 24 hour Intake 1055.33 ml Output 1100 ml Net -44.67 ml Patient Vitals for the past 168 hrs: Weight 11/03/22 0733 92.9 kg (204 lb 12.9 oz) 11/02/22 0415 93.3 kg (205 lb 11 oz) 11/01/22 1001 93.3 kg (205 lb 11 oz) 10/31/22 0535 93.2 kg (205 lb 7.5 oz) 10/29/22 1210 99.2 kg (218 lb 11.1 oz) Physical Exam: General: Pleasant female , no acute distress HEENT: Normocephalic, atraumatic, benign NECK: Supple, no masses, FROM CV: Normal rate, regular rhythm, Gr IV systolic murmur with absent S2 at RSB, no ventricular heaves RESP: CTAB, moving air well, symmetric chest excursion GI: Soft, nd, nttp EXT: No edema, no sig ecchymosis NEURO: No gross focal deficits PSYC: Appropriate mood and affect, alert and oriented DERM: Weeping wounds bilateral lower extremities Lines/Drains/Airways Lines: Implanted Port - Single Lumen Port 05/20/17 1200 infraclavicular fossa, right pressure injectable catheter (Active) Port Accessed Date 10/29/22 11/01/222099 Port Accessed Time 1700 10/29/22 1700 Access Needle 19 gauge;1 in length 10/29/22 1700 Pain Prevention distraction 11/01/222099 Unsuccessful Insertion Attempt Location single port 10/23/221999 Indication/Daily Review of Necessity Medications known to cause phlebitis (vasopressors, concentrated electrolytes, TPN, chemotherapy) 11/03/22 0900 Site Preparation/Maintenance dressing: dry and intact 11/03/22 0850 Dressing change due 11/05/22 11/01/222099 Needleless Connector change due 11/01/22 11/01/222099 Securement secured with sterile tape strips 11/03/22 09 Lumen Patency/Care flushed without difficulty;blood return present;alcohol impregnated cap applied 11/03/22 0900 Phlebitis 0-->no symptoms 11/03/22 0850 Infiltration 0-->no symptoms 11/03/22 0850 Site Signs/Symptoms no redness;no swelling;no warmth;no pain;no palpable cord;no streak formation;no drainage 11/03/22 0850 Peripheral IV Line - Single Lumen 10/22/22 2152 cephalic vein (lateral side of arm), left 22 gauge (Active) Indication/Daily Review of Necessity medication therapy intermittent 11/03/22 0850 Site Preparation/Maintenance dressing: dry and intact 11/03/22 0850 Securement catheter stabilization device, secured with 11/03/22 0850 Patency/Maintenance flushed without difficulty;alcohol impregnated cap applied 11/03/22 0850 Phlebitis 0-->no symptoms 11/03/22 1200 Infiltration 0-->no symptoms 11/03/22 1200 Site Signs/Symptoms no redness;no swelling;no warmth;no pain 11/02/222009 Labs: Recent Labs 11/04/22 0258 11/03/22 0253 11/02/22 0410 11/01/22 0420 10/31/22 0145 WBC 8.6 8.2 7.3 7.1 7.0 HGB 6.8* 7.0* 7.1* 7.5* 7.5* HCT 22.3* 22.6* 23.8* 25.0* 24.7* PLATELET 155 154 132* 131* 126* MCV 97.8* 97.0* 100.8* 100.4* 98.0* Recent Labs 11/04/22 0258 11/03/22 0253 11/02/22 0410 11/01/22 0420 10/31/22 1423 10/31/22 0145 NA 135 136 140 143 143 144 CL 90* 91* 91* 93* 95* 95* CO2 42* 44* 48* 44* 43* 44* K 3.6 3.8 3.5 3.5 3.4* 3.0* MAGNESIUM 0.80 0.84 0.69 0.69 -- 0.77 CALCIUM 8.3* 8.3* 8.3* 8.4* 8.3* 8.3* BUN 14 17 20* 27* 30* 36* CREATININE 0.76 0.76 0.83 0.83 0.86 0.88 Recent Labs 11/02/22 0410 10/29/22 0040 PROT 6.7 7.6 Recent Labs 11/02/22 0410 10/29/22 0040 LDH 289* 314* Diagnostics: Echocardiogram 10/26/2022 Interpretation Summary There is severe aortic stenosis. [...] pericardial effusion. See report for additional findings. Left Ventricle Left ventricle is of normal size. Mildly increased thickness of the basal septum with no obstruction to LV outflow. There is no ventricular septal defect. Left ventricular systolic function is normal. Left ventricular ejection fraction is estimated visually at 65%. There are no segmental wall motion abnormalities. ?? Right Ventricle Right ventricle is moderately dilated. Right ventricular systolic function is mildly decreased. ?? Left Atrium The left atrium is severely dilated. The interatrial septum is not well visualized. ?? Right Atrium The right atrium is severely dilated. ?? Aortic Valve The aortic valve is probably trileaflet. The aortic valve is severely thickened. The aortic valve is severely calcified. There is calcification of the aortic annulus. There is severe aortic stenosis. The peak instantaneous gradient across the aortic valve is 78 mmHg. The mean gradient across the aortic valve is 48. The aortic valve area calculated using the continuity equation is 0.64 cm2. The dimensionless index is 0.20. There is trace aortic regurgitation. ?? Mitral Valve The mitral valve leaflets are thickened. There is no mitral stenosis. There is mild mitral regurgitation. ?? Tricuspid Valve The tricuspid valve is structurally normal. There is no tricuspid stenosis. There is moderate tricuspid regurgitation. The Doppler jet is directed along the atrial septum. ?? Pulmonic Valve The pulmonic valve is not well visualized. There is no valvular pulmonic stenosis. There is trace pulmonic valve regurgitation. ?? Great Arteries The diameter at the level of the sinuses of Valsalva is 3.3 cm. The ascending aorta is dilated. The maximum diameter of the proximal ascending aorta is 4.3 cm. ?? Venous Inferior vena cava is not well visualized. ?? Pericardium/Pleural There is a small pericardial effusion. The pericardial effusion is posterior. ?? Hemodynamics The peak right ventricular systolic pressure is 33 mmHg. Plus RA presssure. Left ventricular filling pressure is indeterminate. Echocardiogram 03/09/2022 Echocardiogram 11/21/2021 (From note by Dr. Schneider) An echocardiogram was done on 11/21/21 and showed normal LV size and function with an LVEF of 60-65%. The RV was mildly dilated with preserved function Echocardiogram 06/20/18 ([facility]) - Summary: (From note by Dr. Schneider) 1. Preserved LV function with an EF of 65%. No apparent wall motion abnormalities. Normal RV function. KATI - global peak systolic strain is -14.3%. ECG rhythm - atrial fibrillation 10/28 R pleural fluid (750cc drained) Fluid/serum LDH 0.44 (transudative) Fluid/serum protein 0.47 (transudative) LDH is 0.62 of upper limit of normal (transudative) ?? 11/02 R pleural fluid (1L drained) Fluid/serum LDH 0.62 (exudative) Fluid/serum protein 0.51 (exudative) LDH is 0.81 of upper limit of normal (exudative) EK10/27/2022 Chest XRAY: 11/01/2022 IMPRESSION No decrease in size of right pleural effusion with size intrafissural components. Stable smaller left pleural effusion. No pneumothorax. Medications Scheduled Meds: ??? acetaZOLAMIDE 250 mg Oral BID ??? furosemide 40 mg Oral Daily ??? apixaban 5 mg Oral BID ??? dilTIAZem CD 180 mg Oral Daily ??? polyethylene glycoL (MIRALAX) oral powder 17 g Oral BID ??? senna-docusate 2 tablet Oral BID ??? melatonin 6 mg Oral Nightly ??? triamcinolone Topical (Top) BID ??? sodium chloride 0.9 % (flush) 5 mL Intravenous BID ??? levothyroxine 150 mcg Oral Daily ??? PARoxetine 20 mg Oral QAM Continuous Infusions: PRN Meds:.ondansetron, carboxymethylcellulose, sodium chloride, albuteroL, loratadine, sodium chloride 0.9 % (flush), lidocaine, acetaminophen Assessment & Plan: Brayan Jaramillo is a 67 y.o. 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 She has been consulted for the Structural Heart Team to evaluate her severe (ANAHY 0.64 cm2, mGr 48mm Hg, LVEF 65%) in the context for potential TAVR. She appears euvolemic on exam and reports [...] - marked limitation of activity CCS 0 Plan - Please place consultation to palliative care with Rani Osei MD - Appreciate medication and hemodynamic optimization per primary team - Will continue following - Please let us know if we can further assist at this time Please see addendum by Dr. Sultana for final recommendations. Juan Miguel Castorena APRN Structural Heart Team Pager [phone] I have seen the patient in person and reviewed Juan Miguel Castorena APRN's above history and I agree with the details as written. The assessment and plan were formulated in discussion with me and I agree with them as documented. I spoke with Ms. Jaramillo at the bedside regarding her clinical status as wellas goals of care. She has been quite limited in terms of exertional limitation. She articulates that she would like to feel better doing her ADLs, and feeling well with the time she has left is a priority for her. Will discuss further with her oncology team regarding prognosis, which she and I talked about in the context of considering minimally invasive therapies. I detailed the risk/benefit cons iderations of aortic valve interventions such as BAV and TAVR, which she states that she understands and still would like to potentially move forward if these could improve her symptom-limited quality of life. BAV and TAVR both carry comparable periprocedural risk profiles, and TVR would likely provide a more definitive/durable outcome with the time she has remaining. I advocated that she deliberate further with her family, and appreciate the coinciding cardiac/palliative care consultation withmy partner, Dr. Osei. If she is to be discharged home, we can facilitate follow-up in [facility] clinicwith a corresponding TAVR CTA/surgical visit. Roddy Sultana MD Director, Structural Heart Disease Pager [phone] * Consult Note - Shanon Urrutia RN - 11/04/2022 11:00 AM EDT Images from the original note were not included. Certified Wound Care Nurse Note Situation: Follow up to see Brayan Jaramillo for BLE venous stasis/venous dermatitis. Background: eD-H notes reviewed for history, admitting diagnosis and active problem list. Patient seen in rm 110A. Patient reports she has only had weeping at her legs following chemotherapy, left knee stiffnessfollowing initiation of chemotherapy. Per MD notes: ID:??Brayan Jaramillo??is a 67 y.o.??female??w/PMH of stage IV??thymic cancer??(undergoing chemo??with permetrexed), atrial fibrillation, hypothyroidism,??and??depression, on??HD# 1??for hematemesis vs hemoptysis in the setting of severe thrombocytopenia. ?? Wound Assessment and Care Provided: Mepilex border removed from BLEs , pinpoint drainage on dressings at LLE and RLE lateral leg. Periwound areas are with faint hemosiderin staining, mild erythema; thick dry crusts on lower legs; crusts removed with forceps, no drainage beneath crusts. Mepilex border dressings applied to open sites, 2 RLE, 1 LLE. BLEs: Kiran Score: 19 Last Pressure Ulcer Prevention assessment: Shift Pressure Injury Prevention Occiput: No Injury Thoracic Spine: No Injury Sacral: No Injury Ischial - left: No Injury Ischial - right: No Injury Heel - left: No Injury Heel - right: No Injury Elbow - left: No Injury Elbow - right: No Injury Device Sites: O2 sat monitor, IV sites Other Sites: [place] Existing Wounds: Wound 10/22/22 2250 leg blister(s) (Active) Wound WDL ex 11/04/22 1058 Dressing Appearance moist drainage 11/04/22 1058 Base pink;reddened 11/04/22 1058 Base Description (%) 100 11/04/22 1058 Area pink;redness 11/04/22 1058 Wound Length (cm) 0.1 cm 11/04/22 1058 Wound Width (cm) 0.1 cm 11/04/22 1058 Wound Surface Area (cm^2) 0.01 cm^2 11/04/22 1058 Drainage Characteristics/Odor clear 11/04/22 1058 Drainage Amount small 11/04/22 1058 Wound Cleaning cleansed with;wound cleanser 11/04/22 1058 Dressing foam;dressing removed;dressing applied 11/04/22 1058 Wound Image 11/04/22 1058 Wound 10/22/22 2250 leg blister(s) (Active) Wound WDL ex 11/04/22 1059 Dressing Appearance moist drainage 11/04/22 1059 Base moist;pink 11/04/22 1059 Base Description (%) 100 11/04/22 1059 Area redness;pink;swelling 11/04/22 1059 Wound Length (cm) 0.1 cm 11/04/22 1059 Wound Width (cm) 0.1 cm 11/04/22 1059 Wound Surface Area (cm^2) 0.01 cm^2 11/04/22 1059 Drainage Characteristics/Odor clear 11/04/22 1059 Drainage Amount small 11/04/22 1059 Wound Cleaning cleansed with;wound cleanser 11/04/22 1059 Dressing foam;dressing removed;dressing applied 11/04/22 1059 Nutritional Status Wt Readings from Last 1 Encounters: 11/03/22 92.9 kg (204 lb 12.9 oz) Body mass index is 31.14 kg/m??. Labs Lab Results Component Value Date ALBUMIN 2.6 (L) 10/22/2022 ALBUMIN 4.1 07/31/2019 ALBUMIN 4.2 04/04/2019 WBC 8.6 11/04/2022 WBC 8.2 11/03/2022 WBC 7.3 11/02/2022 HGB 6.8 (L) 11/04/2022 HGB 7.0 (L) 11/03/2022 HGB 7.1 (L) 11/02/2022 HCT 22.3 (L) 11/04/2022 HCT 22.6 (L) 11/03/2022 HCT 23.8 (L) 11/02/2022 PLATELET 155 11/04/2022 PLATELET 154 11/03/2022 PLATELET 132 (L) 11/02/2022 INR 1.8 10/22/2022 PT 20.5 (H) 10/22/2022 Nutritional Intake Nutrition Diet/Nutrition Received: regular Diet/Feeding Assistance: none Diet/Feeding Tolerance: good Intake (%): 100% Nutrition Risk Screen: no indicators present [facility] bed[facility] ?? Assessment: Patient continues with venous insufficiency/venous dermatitis, pinpoint openings of BLEs managed with mepilex border dressings. Triamcinalone cream appears to be beneficial in managing inflammation/crusting/scaling tissues. Patient may benefit from soft tissue support/compression to manage edema. ?? Wound Care Recommendations: Consider ABIs ? BLEs (2 RLE: upper calf,lower calf, 1 LLE: upper calf, lower calf) Mepilex Border dressing-nursing to change every 3 days and as needed for dressing with 50% or greater strike though drainage. 1. Cleanse wound with dermal wound cleanser and gauze. 2. Apply Mepilex Border dressing ? Wound Care will follow weekly ?? Discussed plan with: RN: Kate Please contact Shanon Urrutia RN on secure chat, pager [phone] or the wound care team at [phone] or pager [phone] with skin and wound care concerns or questions. * Care Management - Julissa Byrd RN - 11/03/2022 3:33 PM EDT OFFICE OF CARE MANAGEMENT PROGRESS NOTE LOS: Hospital Day 12 days Chart reviewed, care reviewed with primary team and at interdisciplinary rounds. Patient continues to meet inpatient level of care related to: Discharge planning Decision Maker: Self Functional status prior to admission: Assistive Equipment, Independent Home Environment: Others in the home: child(marv), adult, grandchild(marv) (states her son, PABLO and 2grandchildren live with her currently). Current Living Arrangements: home/apartment/condo. Accessibility Concerns: ramp. Current Functional Ability: Assistive Person and Equipment DME used at home: walker - standard, wheelchair - manual DME Needed at Discharge: No Patient is insured through: Primary Insurance: [employer] MANAGED MEDICARE Payor: [facility] MANAGED MEDICARE / Plan: [facility] MANAGED MEDICARE / Product Type: *No Product type* / Secondary Insurance: N/A Last Physical Therapy Recommendation: swing bed rehabilitation facility, home with home health withto be determined Last Occupational Therapy Recommendation: half-way facility with walker, front wheeled Plan for discharge is: Senior Care Facility / Swing Agency Referrals: Multiple referrals in place Transportation: family or friend will provide Barriers to discharge: Discharge planning I confirmed with PT/OT (Scott Baez) via secure chat that patient would be a candidate for SWING placed. I went to patient's bedside to speak to her about expanding referrals to SWING facilities closer topatient's home. I went over the different levels of rehab with her (patient) and listed the SWING facilities close to patient's demographic location. Patient refused to have SWING referrals placed and stated I'm only going home. SWING referral list left at bedside for patient to review. I updated team (PT-Nestor/OT-Scott/nursing-Jose Luis and MD-Ja,) via secure chat. Per PT secure chat- patient is progressing towards discharging home with VNA in place. I attempted to call patient's daughter (Cass) at number listed in chart without success. Patient agreed to have referral placed for home oxygen. Referral for VNA has been submitted per Trevor/deonte. SNF referrals still in place pending bed availability. Plan going forward: Care Management will continue to follow and assist with discharge planning and coordination of care as indicated. Anticipated Date of Discharge: 11/08/2022 Julissa Byrd RN, Pager-[phone] * Plan of Care - Shelby Blackmon RN - 11/02/2022 2:46 AM EDT Problem: Adult Inpatient Plan of Care Goal: Plan of Care Review Outcome: Ongoing (Interventions Implemented as Appropriate) Goal: Patient-Specific Goal (Individualized) Outcome: Ongoing (Interventions Implemented as Appropriate) Goal: Absence of Hospital-Acquired Illness or Injury Outcome: Ongoing (Interventions Implemented as Appropriate) Goal: Optimal Comfort and Wellbeing Outcome: Ongoing (Interventions Implemented as Appropriate) Goal: Readiness for Transition of Care Outcome: Ongoing (Interventions Implemented as Appropriate) Problem: Fall Injury Risk Goal: Absence of Fall and Fall-Related Injury Outcome: Ongoing (Interventions Implemented as Appropriate) Problem: Pain Acute Goal: Acceptable Pain Control and Functional Ability Outcome: Ongoing (Interventions Implemented as Appropriate) Problem: Self-Care Deficit Goal: Improved Ability to Complete Activities of Daily Living Outcome: Ongoing (Interventions Implemented as Appropriate) * Plan of Care - Rajesh Cardoso RN - 11/01/2022 2:25 AM EDT OUTCOME EVALUATION NOTE: OUTCOME SUMMARY: Patient has had no episodes of hemoptysis this shift. H/H currently stable, monitoring labs. Patient received potassium replacement due to low levels. Patient otherwise stable and VS within acceptable limits. PLAN MOVING FORWARD: Continue PO diuresis, labs. Discharge when medically ready. INDIVIDUALIZED FALL PREVENTION INTERVENTIONS: Patient-specific fall risk factors per assessment: [current deficits]: Weakness. Assistance [level of assistance required for transfers and ambulation]: 1 assist out of bed. Supervision [direct monitoring required during toileting and ADLs]: Patient requires some assistance with ADLs may be left unsupervised. Surveillance [continuous indirect monitoring]: Purposeful rounding and continuous pulse oximetry (Masimo). Patient-specific fall prevention interventions for sensory deficits provided, if applicable: [X] N/A CARE PLAN GOAL OUTCOME EVALUATION: * Care Management - Mendy Johnson RN - 10/31/2022 9:11 AM EDT OFFICE OF CARE MANAGEMENT PROGRESS NOTE LOS: Hospital Day 9 days Chart reviewed, care reviewed with primary team and at interdisciplinary rounds. Patient continues to meet inpatient level of care related to: Platelet disorder Decision Maker: Self Functional status prior to admission: Assistive Equipment, Independent Home Environment: Others in the home: child(marv), adult, grandchild(marv) (states her son, DIL and 2grandchildren live with her currently). Current Living Arrangements: home/apartment/condo. Accessibility Concerns: ramp. Current Functional Ability: Assistive Person and Equipment DME used at home: walker - standard, wheelchair - manual DME Needed at Discharge: No Patient is insured through: Primary Insurance: [employer] MANAGED MEDICARE Payor: [employer]ED [employer]IC[employer] / Plan: [employer] MANAGED MEDICARE / Product Type: *No Product type* / Secondary Insurance: N/A Last Physical Therapy Recommendation: swing bed rehabilitation facility with to be determined Last Occupational Therapy Recommendation: half-way facility with walker, front wheeled Plan for discharge is: Senior Care Facility / Swing Agency Referrals: Based on discussions with the multi-disciplinary healthcare team, the patient would benefit from SNF level of care at discharge. I have met with the inside account representative to: ?? discuss discharge planning needs. ?? provide the [facility], Office of Care Management letter from the Plaque Maker pertaining to rehabreferrals. ?? provide a letter describing our affiliations within the [facility] and educate about their right to choose where referrals are sent. ?? provide the [facility] Star Quality Rating handout. ?? review the different levels of rehab including SNF, swing, and acute. ?? provide a list of facilities within their preferred geographic area. ?? request that they provide at least three choices for referral. They have requested referrals to: [facility] [address] [place] [address] [facility] [address] [facility] [address] [place] [address] [address] Does patient have COVID vaccine card: No Note routed to a Swat Team Member who will communicate referrals to facilities and provide any required information. Transportation: family or friend will provide Barriers to discharge: Discharge planning Plan going forward: Care Management will continue to follow and assist with discharge planning and coordination of care as indicated. Anticipated Date of Discharge: 11/01/2022 [phone] * Plan of Care - Estefany Fowler RN - 10/30/2022 6:49 AM EDT Problem: Fall Injury Risk Goal: Absence of Fall and Fall-Related Injury Outcome: Ongoing (Interventions Implemented as Appropriate) Problem: Adult Inpatient Plan of Care Goal: Optimal Comfort and Wellbeing Outcome: Ongoing (Interventions Implemented as Appropriate) Problem: Adult Inpatient Plan of Care Goal: Readiness for Transition of Care Outcome: Ongoing (Interventions Implemented as Appropriate) Note: Pt alert oriented X4, vitals stable, unable to have good night sleep due to urgency and frequency, pt uses bedside commodes every 30min-1hr. On 2L N/C, SOB with activities. Desaturates to 88-89% with activities. Problem: Adult Inpatient Plan of Care Goal: Plan of Care Review Outcome: Ongoing (Interventions Implemented as Appropriate) Problem: Adult Inpatient Plan of Care Goal: Readiness for Transition of Care Outcome: Ongoing (Interventions Implemented as Appropriate) Note: Pt alert oriented X4, vitals stable, unable to have good night sleep due to urgency and frequency, pt uses bedside commodes every 30min-1hr. On 2L N/C, SOB with activities. Desaturates to 88-89% with activities. * Consult Note - Shon An MD - 10/27/2022 4:58 PM EDT [facility] Department of Cardiology Consult Progress Note Brayan Jaramillo is a 67 y.o. female with stage 4 thymic cancer who was admitted due to concern for hematemesis. She has since been stable, though with platelet counts (thought to be 2/2 ITP) < 30,though some improvement with steroids. Cardiology consulted for severe . On my discussion with the patient, she endorses a chronic history of VASQUEZ, LE swelling and graduallyprogressive loss of mobility at home. She is unclear whether or not she attributes this to dyspnea or generalized weakness due to her cancer treatments. She denies chest pain or syncope. This AM I asked team to give 160 IV lasix, and she has since put out very well. In the evening on re-evaluation, she states she's a bit more comfortable, sitting upright in chair. EXAM/ DATA Last value Range last 24 hrs Temperature Temp: 36.7 ??C (98.1 ??F) Temp: [35.9 ??C (96.6 ??F)-36.7 ??C (98.1 ??F)] Heart Rate Heart Rate: 71 Heart Rate: [71-78] Blood Pressure BP: 121/75 BP: (117-144)/(66-87) Respiratory Rate Resp: 22 Resp: [22-23] SpO2 SpO2: 92 % SpO2: [79 %-94 %] I's and O's: Intake/Output Summary (Last 24 hours) at 10/27/2022 1658 Last data filed at 10/27/2022 1600 Gross per 24 hour Intake 600 ml Output 3500 ml Net -2900 ml Weights: Patient Vitals for the past 168 hrs: Weight 10/22/22 2152 110.2 kg (242 lb 15.2 oz) Examination: Gen NAD CV distant, irregular, pulse delay at radial, JV at the mandible at least Pulm crackles Abd protuberant, no fluid MSK/Skin warm, venous stasis changes, fluid up to the sacrum Labs: Recent Labs 10/27/22 0340 10/26/22 0415 10/25/22 0400 WBC 4.1 3.4* 2.9* HGB 7.5* 7.2* 7.4* HCT 23.8* 23.3* 22.7* PLATELET 27* 15* 11* NEUTROABS 3.07 2.65 2.39 Recent Labs 10/27/22 0340 10/26/22 0415 10/25/22 0400 NA 136 135 137 K 4.4 4.6 4.2 CL 98 99 100 CO2 29 27 28 BUN 60* 55* 55* CREATININE 1.34* 1.23* 1.24* Recent Labs 10/27/22 0340 10/26/22 0415 10/25/22 0400 CALCIUM 8.7 8.8 8.6 MAGNESIUM 0.92 0.94 0.94 Recent Labs 10/22/22 2310 AST 23 ALT 6 ALKPHOS 49 BILITOT 1.5* BILIDIR 0.7* No results for input(s): INR, PT, PTT in the last 72 hours. Echocardiogram: Interpretation Summary There is severe aortic stenosis. [...] posterior pericardial effusion. See report for additional findings EKG: AFIB ASSESSMENT AND PLAN Brayan Jaramillo is a 67 y.o. female with thymic cancer - per primary team, prognosis is difficult to assess, as she has done very well (beyond her last prognosis estimate). Currently felt to be 6-12 mo. She is extraordinarily volume up and currently has severe thrombocytopenia, stage 4 ca with an unclear prognosis. For now, please continue with diuresis. We will continue to follow. - goal net negative 2L today - would hold an evening dose assuming she continues with her good output - watch her heart rate - her AF is currently rate controlled thankfully. Please avoid ccb/beta blockers given the - when platelets > 50, we can discuss anti-coagulation We will continue to follow Kevin Hernan Cardiology Attending Note I interviewed and examined the patient during comprehensive bedside rounds. I concur with the summary of interval events, active hospital-focused problem list and plan of care as described in the note below. I personally reviewed the medications, laboratory results, treatment decisions and updated the patient. Agree with diuresis for heart failure in the setting of severe . JVP elevated to her ear lobe while sitting nearly upright. Unfortunately, there are no options to definitively address her aortic stenosis (ie TAVR, angioplasty, etc) given her degree of thrombocytopenia. Shon An MD, FACP, FACC Section of Cardiovascular Medicine [facility] Cloth Pattern Makerclinical liaison [facility] This patient meets or has met medical criteria to require an inpatient level of care, i.e. a minimum of two midnights in the hospital with multiple complex problems. * Care Management - Julissa Byrd RN - 10/27/2022 4:42 PM EDT OFFICE OF CARE MANAGEMENT PROGRESS NOTE LOS: Hospital Day 5 days Chart reviewed, care reviewed with primary team and at interdisciplinary rounds. Patient continues to meet inpatient level of care related to: TTE yesterday, plan to diurese-cardiology consulted to discuss options (per IDR report/chart review). Decision Maker: Self Functional status prior to admission: Assistive Equipment, Independent Home Environment: Others in the home: child(marv), adult, grandchild(marv) (states her son, DIL and 2grandchildren live with her currently). Current Living Arrangements: home/apartment/condo. Accessibility Concerns: ramp. Current Functional Ability: Assistive Person and Equipment DME used at home: walker - standard, wheelchair - manual DME Needed at Discharge: No Patient is insured through: Primary Insurance: P MANAGED MEDICARE Payor: P MANAGED MEDICARE / Plan: P MANAGED MEDICARE / Product Type: *No Product type* / Secondary Insurance: N/A Last Physical Therapy Recommendation: half-way facility with to be determined Last Occupational Therapy Recommendation: half-way facility with walker, front wheeled Plan for discharge is: Senior Care Facility / Swing Outpatient Agency/Support Group Needs: Homecare agency Home Health Services: Medication checks, Registered Nurse Agency Referrals: Patient refusing to place referrals to SNF at this time. Patient educated on different levels of rehab needs and continues to refuse referrals. Team (OT- Baljit, PT-Komal and -Ja) updated via secure chat. Transportation: family or friend will provide Barriers to discharge: None Plan going forward: Care management to follow for home oxygen/ VNA needs.Care Management will continue to follow and assist with discharge planning and coordination of care as indicated. Anticipated Date of Discharge: 10/29/2022 Julissa Byrd RN, CM Pager-[phone] * Consult Note - Shanon Urrutia RN - 10/25/2022 1:10 PM EDT Images from the original note were not included. Certified Wound Care Nurse Note Situation: Asked to see Brayan Jaramillo by SEBASTIAN Miranda for weeping leg blisters with maceration. Background: eD-H notes reviewed for history, admitting diagnosis and active problem list. Patient seen in rm 110A. Patient reports she has only had weeping at her legs following chemotherapy. She has not worn compression stockings previously. Per MD notes: ID: Brayan Jaramillo is a 67 y.o. 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 Wound Assessment and Care Provided: Medipore tape, kerlix gauze, mepilex foam removed from BLEs using NS to moisten; mix of dried ss,moist ss drainage on dressings in intermittent locations. Periwound areas are with hemosiderin staining; intermittent dry crusts on lower legs. Feet are warm; trace edema. Largest LLE lateral leg with moist ss drainage, ~ 2 cm x 0.4 cm; largest RLE wound, ~1 cm x 1 cm. Mepilex border dressings applied to open sites, 2 RLE, 2 LLE. RLE: LLE: Kiran Score: 15 Last Pressure Ulcer Prevention assessment: Shift Pressure Injury Prevention Occiput: No Injury Thoracic Spine: No Injury Sacral: Redness, Blanchable Ischial - left: No Injury Ischial - right: Redness, Blanchable Heel - left: Redness, Blanchable Heel - right: Redness, Blanchable Elbow - left: No Injury Elbow - right: No Injury Device Sites: O2 sat monitor, riley, oxygen tubing Other Sites: idb Existing Wounds: Wound 10/22/22 2250 leg blister(s) (Active) Wound WDL ex 10/25/22 1307 Dressing Appearance moist drainage 10/25/22 130 Base moist;pink;yellow 10/25/22 1307 Base Description (%) 75% pink/25% yellow 10/25/22 1307 Area dry 10/25/22 1307 Wound Length (cm) 1 cm 10/25/22 1307 Wound Width (cm) 1 cm 10/25/22 1307 Wound Surface Area (cm^2) 1 cm^2 10/25/22 1307 Drainage Characteristics/Odor serosanguineous 10/25/22 1307 Drainage Amount small 10/25/22 1307 Wound Cleaning cleansed with;wound cleanser 10/25/22 1307 Dressing gauze;dressing removed;foam;dressing applied 10/25/22 1307 Wound Image 10/25/22 1307 Wound 10/22/22 2250 leg blister(s) (Active) Wound WDL ex 10/25/22 1308 Dressing Appearance moist drainage;dried drainage 10/25/22 1308 Base moist 10/25/22 1308 Base Description (%) 75% pink/25% yellow 10/25/22 1308 Wound Length (cm) 1.5 cm 10/25/22 130 Wound Width (cm) 1.5 cm 10/25/22 130 Wound Surface Area (cm^2) 2.25 cm^2 10/25/22 1308 Drainage Amount small 10/25/22 1308 Wound Cleaning cleansed with;wound cleanser 10/25/22 1308 Dressing gauze;dressing removed;foam;dressing applied 10/25/22 1308 Wound Image 10/25/22 1308 Nutritional Status Wt Readings from Last 1 Encounters: 10/22/22 110.2 kg (242 lb 15.2 oz) Body mass index is 36.94 kg/m??. Labs Lab Results Component Value Date ALBUMIN 2.6 (L) 10/22/2022 ALBUMIN 4.1 07/31/2019 ALBUMIN 4.2 04/04/2019 WBC 2.9 (L) 10/25/2022 WBC 2.0 (L) 10/24/2022 WBC 2.2 (L) 10/23/2022 HGB 7.4 (L) 10/25/2022 HGB 7.2 (L) 10/24/2022 HGB 6.3 (L) 10/23/2022 HCT 22.7 (L) 10/25/2022 HCT 22.1 (L) 10/24/2022 HCT 19.7 (L) 10/23/2022 PLATELET 11 (CRIT) 10/25/2022 PLATELET 8 (CRIT) 10/24/2022 PLATELET 6 (CRIT) 10/23/2022 INR 1.8 10/22/2022 PT 20.5 (H) 10/22/2022 Nutritional Intake Nutrition Diet/Nutrition Received: regular Diet/Feeding Assistance: none Intake (%): 75% Nutrition Risk Screen: no indicators present Current bed: [facility] Assessment: Patient appears with venous insufficiency, based on wound presentation and hemosiderin staining, however, at this time edema seems well managed. Patient may benefit from triamcinalone cream for inflammation/crusting/scaling tissues. Patient may benefit from soft tissue support/compression in the future if wounds continue to present. Wound Care Recommendations: Consider ABIs BLEs (2 RLE: upper calf,lower calf, 2 LLE: upper calf, lower calf) Mepilex Border dressing-nursing to change every 3 days and as needed for dressing with 50% or greater strike though drainage. 1. Cleanse wound with dermal wound cleanser and gauze. 2. Apply Mepilex Border dressing Wound Care will follow weekly Discussed plan with: /RACQUEL/PA: Peter RN: Viola Please contact Shanon Urrutia RN on secure chat, pager [phone] or the wound care team at [phone] or pager [phone] with skin and wound care concerns or questions. * Initial Assessments - Casandra Cisneros RN - 10/25/2022 10:07 AM EDT Office of Care Management Initial Assessment Casandra Cisneros RN reviewed record and discussed patient with Care Team. Source of Information: Team, bedside nurse, medical record, and Patient CM Introduced self/reviewed role; services accepted. Reason for Hospitalization: coughing up blood Covid Vaccination Status: 1st & 2nd dose Last COVID test: Past medical History: Past Medical History: Diagnosis Date ??? Atrial fibrillation ??? HTN (hypertension) ??? Obesity ??? Thymic cancer 04/2017 ??? 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 Ventral hernia Hospitalizations Within the Past 30 Days: no previous admission in last 30 days Current Decision-Making Capacity: Self If AD's have not been completed the following surrogate would be surrogate decision maker per [place] surrogate decision making law. (Only good for 180 days) Any patient receiving care in [place] must abide by [place] law. The hierarchy for surrogate decision making is: (a) Patient???s spouse or civil union partner unless there is a divorce proceeding, separation agreement, or restraining order limiting that person???s relationship with the patient. (b) Any adult son or daughter of the patient. (c) Either parent of the patient. (d) Any adult brother or sister of the patient. (e) Any adult grandchild of the patient. (f) Any grandparent of the patient. (g) Any adult aunt, uncle, niece, or nephew of the patient. (h) A close friend of the patient. (i) The agent with financial power of workers compensation attorney or a conservator appointed in accordance with RSA 464-A. (j) The guardian of the patient???s estate. Advance Care Planning: Attempt Cardiopulmonary Resuscitation - Inpatient <no information> -Advanced Directive: No, declines (states she will talk with my family and f/u with my PCP\) Current Coping/Education/Information Needs: Paln of care discussed with Brayan, who verbalized understanding and in agreement with plan Current Functional Ability: Assistive Equipment and Assistive Person Functional Status Prior to Admission: Assistive Equipment, Independent Prior ADLs & IADLs: Assistance Needed with ADLs & IADLs Driving: Family / Friends Provide Rides Groceries: Family / Friends Provide Groceries Home Environment: Others in the home: child(marv), adult, grandchild(marv) (states her son, PABLO and 2grandchildmarv live with her currently). Current Living Arrangements: home/apartment/condo. Accessibility Concerns:ramp. Resource / Environmental Concerns: Resource/Environmental Concerns: none Current DME: walker - standard, wheelchair - manual Home Address confirmed as: [address] [facility] [address] Physical Address: [address] [facility], [place] Social & Family Supports: son PABLO. All names listed below confirmed with patient as current andcorrect Extended Emergency Contact Information Primary Emergency Contact: Nba Jaramillo Address: [address] [place] [address] [facility] Relation: Spouse Secondary Emergency Contact: Cass Fong Address: [address] [place] [address] [facility] Relation: Child Current Care Provided by: self Provides Primary Care For: no one Caregiver if needed: none Quality of Family relationships: helpful, supportive Community Resources being provided currently: none Behavioral Health History: denies Substance Use/Abuse confirmed: Social History Tobacco Use Smoking Status Never Smokeless Tobacco Never In the past year have you used an illegal drug or used a prescription medication for non-medical reasons?: No 0 No problems reported 1-2 Low level 3-5 Moderate level 6-8 Substantial level 9- 10 Severe level In the past year have you had 4 or more drinks a day containing alcohol?: No 0 to 7 points: Low risk 8 to 15 points: Medium risk 16 to 19 points: High risk 20 to 40 points: Addiction likely Other Pertinent/Service Specific Information: Health/Prescription Coverage: Primary Insurance: MVP MANAGED MEDICARE Payor: MVP MANAGED MEDICARE / Plan: MV MANAGED MEDICARE / Product Type: *No Product type* / Secondary Insurance: N/A ; Prescription Coverage: Yes Preferred Pharmacy: [facility] - [place], [place] - [address] [facility] [address] [facility] [address] [address] [facility] [address] [facility] [address] [facility] - [place], [place] - [address] [facility], [facility] [address] [place] [address], [facility] [address] [facility] [id number] [place] Status: Patient is a : No Primary Care Provider confirmed: Jerzy Vidal MD [phone] Patient/Caregiver Goals of Treatment: Potential Needs for Transition of Care: home health care Agency Referrals: The Patient, Brayan has been provided a list of Home Health Agencies/DME vendors which serve their preferred geographic area. A letter describing our affiliations was reviewed with them and they were educated about their right to choose where referrals are placed. ELODIA Provided patient with [facility] Star Quality Rating for Home care hand out. Patient requests referral to : JAMEL: [facility] [address] [place] [address] Expected date of discharge: 10/28/22. Referral routed to the Swat Team Member for matching with agency/vendor and to provide any required information. Transportation: no concerns Transportation Anticipated: family or friend will provide Concerns to be Addressed: no discharge needs identified Assessment: Patient is admitted to Hospital Medicine service, presented to an outside hospital for hematemesis of 4 teaspoons of blood and endorsing some abdominal and thigh swelling which she reports began several months ago when she was started on everolimus for her thymic cancer. (Per Dr Douglas's note, 10/22/22) Plan: evaluate lab values medication assessment and tolerance, evaluate bleeding. A member of the Care Management team will continue to monitor progress, follow for continuity of care and assist with transition of care planning. Casandra Cisneros RN [phone] Pager [phone] * Consult Note - Rajesh Carrillo MD - 10/23/2022 9:00 AM EDT [facility] NEW HEMATOLOGY CONSULT Reason for consult: We are seeing Brayan Jaramillo at the request of to evaluate for thrombocytopenia. HPI Brayan Jaramillo is 67 y.o. with PMH of thymic cancer dating back to 2017 on multiple treatments since then with stable mediastinal mass but with waxing and waning metastatic disease in the form of pulmonary nodules, pleural effusions paratracheal and and pericardial LNs, additionally with HFpEF nowfabian wolfe, who presented to OSH with complaints of LE edema and 4 teaspoons of hemopytsis vs hematemesis. Due to the reports of hemoptysis and new O2 requirement 3-4L, it was recommended she be transferredto ICU for further care. She was admitted to ICU service on night of 10/22. She has since been transferred to Hospital Medicine given her overall clinical stability and lack of need of ICU level of care. Hematology is consulted regarding her thrombocytopenia. Platelet dropped from 68 to 3 since 10/14/22.Hgb also dropped from 9.8 to 7.1. A workup was sent includiing: CBC, CMP, peripheral smear, HepC, HIV, haptoglobin, LD H, D-dimer, coags, fibrinogen, U/A, blood culture, haptoglobin, T&S. On interview this AM, she corroborates the above story. States that she feels overall well. May have a little bit of shortness of breath and has had some LE edema, which she attributes to her chemo. She states that she has had difficulties with cytopenias related to antineoplastic medications in the past, with WBC in the 3s and Hgb in the 5s while plts have been in 60s. She has not had this significant of a thrombocytopenia that she or her daughter can recall. Denies sites of bleeding, melena, hematochezia, hemoptysis, petechia, n/v/d, fevers, chills, night sweats, chest pain. Labs returned this AM with notably: Platelet recheck: 5 Cr: 1.65 TBili: 1.5 LDH: 220 Haptoglobin: 230 INR: 1.8 PT: 20.5 PTT: 35 Fibrinogen: 578 Ferritin: 54828 Folate, B12 nl HIV, HCV neg ROS 10 point review of system is unremarkable other than what has been told in HPI No outpatient medications have been marked as taking for the 10/22/22 encounter (Hospital Encounter). Past Medical History: Diagnosis Date ??? Atrial fibrillation ??? HTN (hypertension) ??? Obesity ??? Thymic cancer 04/2017 ??? 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 Ventral hernia Past Surgical History: Procedure Laterality Date ??? APPENDECTOMY 2002 ??? BREAST BIOPSY ??? SECTION ??? HERNIA REPAIR 2005 ??? SOFT TISSUE BIOPSY 03/22/2017 ??? THORACENTESIS Family History Problem Relation Age of Onset ??? Colorectal Cancer Mother Social History Socioeconomic History ??? Marital status: Spouse name: None ??? Number of children: None ??? Years of education: None ??? Highest education level: None Occupational History ??? None Tobacco Use ??? Smoking status: Never ??? Smokeless tobacco: Never Vaping Use ??? Vaping Use: Never used Substance and Sexual Activity ??? Alcohol use: Never ??? Drug use: Never ??? Sexual activity: Never Other Topics Concern ??? None Social History Narrative ??? None Social Determinants of Health Financial Resource Strain: Not on file Food Insecurity: Not on file Transportation Needs: Not on file Physical Activity: Not on file Housing Stability: Not on file PHYSICAL EXAM Patient Vitals for the past 24 hrs: BP Temp Temp src Pulse Resp SpO2 Height Weight 10/23/22 1340 91/63 36.5 ??C (97.7 ??F) Oral 86 23 92 % -- -- 10/23/22 1316 109/79 36.7 ??C (98.1 ??F) -- 86 26 94 % -- -- 10/23/22 1200 104/72 36.7 ??C (98.1 ??F) Oral 81 25 92 % -- -- 10/23/22 0800 114/72 36.7 ??C (98.1 ??F) Oral 87 14 91 % -- -- 10/23/22 0600 107/66 36.8 ??C (98.2 ??F) Oral 77 28 97 % -- -- 10/23/22 0500 102/71 -- -- 78 17 93 % -- -- 10/23/22 0425 111/69 36.9 ??C (98.4 ??F) Oral 82 29 93 % -- -- 10/23/22 0400 106/69 -- -- 80 24 95 % -- -- 10/23/22 0355 109/67 36.6 ??C (97.9 ??F) Oral 82 23 93 % -- -- 10/23/22 0300 108/69 -- -- 82 24 96 % -- -- 10/23/22 0258 109/77 36.6 ??C (97.9 ??F) Oral 79 18 94 % -- -- 10/23/22 0239 -- -- -- 79 21 92 % -- -- 10/23/22 0230 107/71 -- -- 81 27 93 % -- -- 10/23/22 0227 107/71 36.7 ??C (98.1 ??F) Oral 81 30 91 % -- -- 10/23/22 0200 104/70 -- -- 82 26 92 % -- -- 10/23/22 0100 109/68 -- -- 85 (!) 31 95 % -- -- 10/23/22 0057 105/67 -- -- -- -- -- -- -- 10/23/22 0000 102/64 36.7 ??C (98.1 ??F) Oral 81 21 93 % -- -- 10/22/22 2300 103/69 -- -- 80 26 94 % -- -- 10/22/22 2200 112/62 -- -- 77 18 95 % -- -- 10/22/22 2152 105/58 36.6 ??C (97.9 ??F) Oral 88 20 -- 172.7 cm (5' 8) 110.2 kg (242 lb 15.2 oz) Body surface area is 2.3 meters squared. Wt Readings from Last 3 Encounters: 10/22/22 110.2 kg (242 lb 15.2 oz) 10/08/22 107.5 kg (237 lb) 09/16/22 110.3 kg (243 lb 3.2 oz) Constitutional/General: well-appearing, NAD HEENT: PERRL, EOMI, MMM, anicteric sclera, oropharynx clear, no petechia Lungs: diminished breath sounds Heart: RRR, S1/S2 present, no murmurs/rubs/gallops Abdomen: +BS, thickened skin, slightly firm, nontender Ext: 2+ lower extremity edema - shins wrapped in bandages Neurologic: non-focal Skin: no petechia DIAGNOSTICS Recent Results (from the past 24 hour(s)) POCT Glucose Result Value Ref Range POC Glucose 109 65 - 199 mg/dL Basic Metabolic Panel (non-fasting) Result Value Ref Range Glucose Lvl 101 65 - 199 mg/dL BUN 58 (H) 8 - 18 mg/dL Creatinine 1.69 (H) 0.70 - 1.20 mg/dL Sodium 132 (L) 135 - 145 mmol/L Potassium 4.2 3.5 - 5.0 mmol/L Chloride 94 (L) 98 - 107 mmol/L CO2 27 22 - 31 mmol/L Anion Gap 11 5 - 15 mmol/L Calcium 8.1 (L) 8.5 - 10.5 mg/dL Estimated GFR 33 (L) >=60 mL/min/1.73 m?? Magnesium Result Value Ref Range Magnesium 0.92 0.69 - 1.07 mmol/L Hepatic Function Panel Result Value Ref Range Total Protein 6.8 6.1 - 8.0 g/dL Albumin 2.6 (L) 3.2 - 5.2 g/dL AST 23 0 - 30 unit/L ALT 6 0 - 30 unit/L Alk Phos 49 35 - 105 unit/L Total Bilirubin 1.5 (H) 0.2 - 1.3 mg/dL Bili, Direct 0.7 (H) 0.0 - 0.3 mg/dL Prothrombin Time Result Value Ref Range PT 20.5 (H) 9.4 - 12.5 sec INR 1.8 APTT Result Value Ref Range PTT 35 25 - 37 sec Fibrinogen Result Value Ref Range Fibrinogen 578 (H) 200 - 393 mg/dL Thrombin time Result Value Ref Range Thrombin Time 17 10 - 17 sec D-Dimer, Quantitative Result Value Ref Range D-Dimer, Quant 12,895 (H) 0 - 500 FEU ng/ml Lactate Dehydrogenase Result Value Ref Range LDH 220 110 - 220 unit/L Haptoglobin Result Value Ref Range Haptoglobin 230 (H) 30 - 200 mg/dL HIV Screen, 4th Generation ([facility]/APD/[facility]) Result Value Ref Range HIV-1/2 Ab and Ag Negative Negative HIV Comment Low Risk of HIV Infection Hepatitis C Antibody Result Value Ref Range Hepatitis C Ab Negative Negative ABO/Rh Typing Result Value Ref Range ABORh Type A Pos Antibody screen Result Value Ref Range Ab Screen Interp Negative Expires at [id number] on: 10/26/2022 ABORH Recheck Status Result Value Ref Range ABORH Recheck Order Order Placed ABORH Type Recheck Complete Type and Screen Validity Result Value Ref Range T&S only valid at [facility] Hemogram Result Value Ref Range WBC 2.6 (L) 4.0 - 9.5 x10(3)/mcL RBC 2.18 (L) 4.00 - 5.21 x10(6)/mcL Hemoglobin 6.4 (L) 11.7 - 15.5 g/dL Hematocrit 20.4 (L) 35.7 - 45.8 % MCV 93.6 82.6 - 94.4 fL MCH 29.4 27.1 - 32.0 pg MCHC 31.4 (L) 31.7 - 35.0 g/dL Platelets 5 (CRIT) 145 - 357 x10(3)/mcL RDWSD 57.6 (H) 37.0 - 46.0 fL RDWCV 17.0 (H) 11.5 - 14.1 % MPV 9.8 7.6 - 12.9 fL nRBC % Auto 0.0 % nRBC Abs Auto 0.000 0.000 - 0.000 x10(3)/mcL Scan, Peripheral Blood Result Value Ref Range Plat Estimate Decreased RBC Morphology Abnormal Hypochromia Moderate Ovalocytes 1-5 /HPF Urinalysis without microscopic Result Value Ref Range Glucose UA Negative Negative mg/dL Protein UA 30 (A) Negative mg/dL Bilirubin UA Negative Negative mg/dL Urobilinogen UA Normal Normal mg/dL pH UA 5.5 5.0 - 8.0 Blood UA Large (A) Negative mg/dL Ketones UA Negative Negative mg/dL Nitrite UA Negative Negative Leukocytes UA Negative Negative mcL Appearance UA Clear Clear Spec [place] UA 1.013 1.005 - 1.030 Color UA Yellow Yellow Prepare Platelets, Apheresis Result Value Ref Range Dispensed? Yes Prepare RBC Result Value Ref Range Dispensed? Yes Basic Metabolic Panel (non-fasting) Result Value Ref Range Glucose Lvl 103 65 - 199 mg/dL BUN 63 (H) 8 - 18 mg/dL Creatinine 1.65 (H) 0.70 - 1.20 mg/dL Sodium 131 (L) 135 - 145 mmol/L Potassium 4.1 3.5 - 5.0 mmol/L Chloride 95 (L) 98 - 107 mmol/L CO2 27 22 - 31 mmol/L Anion Gap 9 5 - 15 mmol/L Calcium 8.4 (L) 8.5 - 10.5 mg/dL Estimated GFR 34 (L) >=60 mL/min/1.73 m?? Magnesium Result Value Ref Range Magnesium 0.92 0.69 - 1.07 mmol/L Vitamin B12 Result Value Ref Range Vitamin B-12 1,732 (H) 232 - 1,245 pg/mL Folate, serum Result Value Ref Range Folate Lvl 13.3 4.8 - 24.2 ng/mL Ferritin Result Value Ref Range Ferritin 12,699 (H) 30 - 400 ng/mL Hemogram Result Value Ref Range WBC 2.3 (L) 4.0 - 9.5 x10(3)/mcL RBC 2.32 (L) 4.00 - 5.21 x10(6)/mcL Hemoglobin 7.0 (L) 11.7 - 15.5 g/dL Hematocrit 21.6 (L) 35.7 - 45.8 % MCV 93.1 82.6 - 94.4 fL MCH 30.2 27.1 - 32.0 pg MCHC 32.4 31.7 - 35.0 g/dL Platelets 5 (CRIT) 145 - 357 x10(3)/mcL RDWSD 56.6 (H) 37.0 - 46.0 fL RDWCV 17.0 (H) 11.5 - 14.1 % MPV Not Measured 7.6 - 12.9 fL nRBC % Auto 0.0 % nRBC Abs Auto 0.000 0.000 - 0.000 x10(3)/mcL Differential, Automated Result Value Ref Range Neutrophils % 72.0 % Neutr Abs (ANC) 1.64 (L) 1.70 - 6.10 x10(3)/mcL Lymphocytes % 8.3 % Lymphocytes Abs 0.2 (L) 0.9 - 3.2 x10(3)/mcL Monocytes % 3.9 % Monocyte Abs 0.1 (L) 0.3 - 0.9 x10(3)/mcL Eosinophils % 2.2 % Eosinophils Abs 0.0 0.0 - 0.4 x10(3)/mcL Basophils % 0.0 % Basophils Abs 0.0 0.0 - 0.1 x10(3)/mcL Immature Gran % 13.60 % [place] Gran Abs 0.31 (H) 0.00 - 0.04 x10(3)/mcL Scan, Peripheral Blood Result Value Ref Range Plat Estimate Decreased RBC Morphology Abnormal Hypochromia Slight Ovalocytes 1-5 /HPF Peripheral Smear Review Result Value Ref Range Periph Smear Rev See Comment Direct antiglobulin test Result Value Ref Range DEBRA Negative Hemogram Result Value Ref Range WBC 2.2 (L) 4.0 - 9.5 x10(3)/mcL RBC 2.21 (L) 4.00 - 5.21 x10(6)/mcL Hemoglobin 6.7 (L) 11.7 - 15.5 g/dL Hematocrit 20.8 (L) 35.7 - 45.8 % MCV 94.1 82.6 - 94.4 fL MCH 30.3 27.1 - 32.0 pg MCHC 32.2 31.7 - 35.0 g/dL Platelets 6 (CRIT) 145 - 357 x10(3)/mcL RDWSD 59.1 (H) 37.0 - 46.0 fL RDWCV 17.3 (H) 11.5 - 14.1 % MPV Not Measured 7.6 - 12.9 fL nRBC % Auto 0.0 % nRBC Abs Auto 0.000 0.000 - 0.000 x10(3)/mcL Differential, Automated Result Value Ref Range Neutrophils % 69.7 % Neutr Abs (ANC) 1.56 (L) 1.70 - 6.10 x10(3)/mcL Lymphocytes % 9.4 % Lymphocytes Abs 0.2 (L) 0.9 - 3.2 x10(3)/mcL Monocytes % 7.1 % Monocyte Abs 0.2 (L) 0.3 - 0.9 x10(3)/mcL Eosinophils % 2.2 % Eosinophils Abs 0.0 0.0 - 0.4 x10(3)/mcL Basophils % 0.0 % Basophils Abs 0.0 0.0 - 0.1 x10(3)/mcL Immature Gran % 11.60 % [place] Gran Abs 0.26 (H) 0.00 - 0.04 x10(3)/mcL Scan, Peripheral Blood Result Value Ref Range Plat Estimate Decreased RBC Morphology Abnormal Hypochromia Slight Ovalocytes 1-5 /HPF Prepare Platelets, Apheresis Result Value Ref Range Dispensed? Yes Imaging: No results found for this visit on 10/22/22. ASSESSMENT and PLAN Brayan Jaramillo is a 67 y.o. 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 Brayan has a history of significant marrow suppression with her antineoplastic therapies. She is currently about 2 weeks out from her last treatment with pemetrexed, which had previously led to a WBC in the 3s, hgb in the 5s, and plts in the 60s. With this temporal relation to her therapy, it is reasonable to attribute at least part of her pancytopenia to chemo-related marrow suppression. With that being said, we have recommended a broad workup search for possible etiologies of her counts including possibilities of MAHA, acute infection, nutritional deficiencies, DIC, malignancy, or autoimmune. Workup has thus far suggested against intravascular hemolysis with a normal LDH, elevated haptoglobin, and not markedly elevated bilirubin. DEBRA has returned negative as well. TTP was considered but is unlikely in this setting and ultimately a PLASMIC score of 2. A peripheral smear is pending. DIC is unlikely with her fibrinogen not being low. Furthermore, her B12 and folate were not low. Our highest suspicion is of ITP as the cause of her thrombocytopenia given the degree of cytopenia,her possible poor response to transfusion, and the ruling out of the previously listed etiologies. To further assess the likelihood of ITP, we recommend a repeat platelet transfusion with a post-platelet check. If she has a poor response, this would support ITP and we would recommend treating with a 4-day course of dexamethasone 40mg po. If she has a good response to transfusion, it is possible that her presentation is related to marrow suppression from her chemotherapy. Of note, there was a consideration of HLH given the degree of her ferritin elevation. This however is unlikely to be in play as she appears clinically relatively well and has not had signs of fever like we would expect with HLH. We have discussed recommendations regarding the performed labwork and highlighted our thoughts here. Below are our recommendations going forward. Recommendations: - peripheral smear review - platelet transfusion and post platelet count - if platelet response to transfusion, supportive measures - if poor response - Dexamethasone 40mg qd x 4 days Thank you for the consult. Patient's case was discussed with my attending Dr. Mchugh. Rajesh Carrillo MD Hematology/Oncology Fellow Associated attestation - Salvatore Mchugh MD - 10/23/2022 3:52 PM EDT I interviewed and examined the patient, as well as reviewed all of the relevant history and data with the fellow. We formulated our plan together, and I nataly with the fellow's comprehensive consult note. Interesting case. Plts of 5 seems too low for chemo induced myelosuppression. 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 Agree with Dexamethasone 40mg daily Salvatore Mchugh MD 10/23/2022 * Plan of Care - Ruben Licona RN - 10/23/2022 5:42 AM EDT Pt admitted from [facility] overnight. No reported hemoptysis since transfer. Pt exhibiting no visible signs of active bleeding. Has received 1 unit of platelets and 2 PRBC at this time. Remains an active chemo patient. Hematology was consulted. Abd abnormally firm. Wound consulted for macerated leg wounds. Pt becomes significantly anxious when HOB is less than 45?? to reposition. Shereports being unable to breath and becomes tearful at mentioning lowering the HOB. Symptoms immediately resolve when HOB is elevated. Problem: Adult Inpatient Plan of Care Goal: Plan of Care Review Outcome: Ongoing (Interventions Implemented as Appropriate) Goal: Patient-Specific Goal (Individualized) Outcome: Ongoing (Interventions Implemented as Appropriate) Goal: Absence of Hospital-Acquired Illness or Injury Outcome: Ongoing (Interventions Implemented as Appropriate) Goal: Optimal Comfort and Wellbeing Outcome: Ongoing (Interventions Implemented as Appropriate) Goal: Readiness for Transition of Care Outcome: Ongoing (Interventions Implemented as Appropriate) Problem: Fall Injury Risk Goal: Absence of Fall and Fall-Related Injury Outcome: Ongoing (Interventions Implemented as Appropriate) Problem: Pain Acute Goal: Acceptable Pain Control and Functional Ability Outcome: Ongoing (Interventions Implemented as Appropriate) Problem: Self-Care Deficit Goal: Improved Ability to Complete Activities of Daily Living Outcome: Ongoing (Interventions Implemented as Appropriate) documented in this encounter Plan of Treatment Upcoming Encounters Date Type Department Care Team (Late st Contact Info) Description 02/24/2024 9:00 AM EDT Office Visit Hematology/Oncology at [address] [phone] Shon Schneider MD [facility] [place] [address] [address] HEMATOLOGY AND ONCOLOGY [place], [place] [id number] 02/24/2024 9:30 AM EDT Infusion Hematology Oncology at [address] [phone] 03/02/2024 11:00 AM EDT Office Visit Hematology/Oncology at [address] [phone] Shon Schneider MD [facility] [place] [address] [address] HEMATOLOGY AND ONCOLOGY [place], [place] [address] 03/02/2024 12:30 PM EDT Infusion Hematology Oncology at [address] [phone] 03/09/2024 10:00 AM EDT Office Visit Hematology/Oncology at [address] [phone] Shon Schneider MD [facility] [place] [address] [address] HEMATOLOGY AND ONCOLOGY [place], [place] [address] 03/09/2024 10:30 AM EDT Infusion Hematology Oncology at [address] [phone] Scheduled Referrals Name Type Priority Associated Diagnoses Orde r Schedule Referral to Home Health Outpatient Referral Routine Thymic carcinoma Aortic valve stenosis, etiology of cardiac valve disease unspecified Ordered: 11/07/2022 documented as of this encounter Goals Goal Patient Goal Type Associated Problems Recent Progress Patient-Stated? Author DH Home Medication Compliance and Understanding Patient Facing Action Plan On track( 019 3:22 PM EST) Ivana Ashraf, [facility] Note: Remain 95% or better adherent to chemotherapy without severe side effects as assessed by days supply and patient reported adverse events at each refill documented as of this encounter Procedures Procedure Name Priority Date/Time Associated Diagnosis Comments HEMOGRAM Routine 11/07/2022 2:58 AM EDT DIFFERENTIAL, AUTOMATED Routine 11/07/2022 2:58 AM EDT CBC (WITH DIFF) Routine 11/07/2022 2:58 AM EDT MAGNESIUM Routine 11/07/2022 2:58 AM EDT BASIC METABOLIC PANEL Routine 11/07/2022 2:58 AM EDT HEMOGRAM Routine 11/06/2022 4:19 AM EDT DIFFERENTIAL, AUTOMATED Routine 11/06/2022 4:19 AM EDT CBC (WITH DIFF) Routine 11/06/2022 4:19 AM EDT MAGNESIUM Routine 11/06/2022 4:19 AM EDT BASIC METABOLIC PANEL Routine 11/06/2022 4:[address] HEART FOR FUNCTION (NON-CORONARY) W CONTRAST Routine 11/05/2022 4:[address] ANGIOGRAM ABDOMEN AND PELVIS W CONTRAST Routine 11/05/2022 4:34 PM EDT HEMOGRAM Routine 11/05/2022 3:10 AM EDT DIFFERENTIAL, AUTOMATED Routine 11/05/2022 3:10 AM EDT CBC (WITH DIFF) Routine 11/05/2022 3:10 AM EDT MAGNESIUM Routine 11/05/2022 3:10 AM EDT BASIC METABOLIC PANEL Routine 11/05/2022 3:10 AM EDT TRANSFUSE RED BLOOD CELLS Routine 11/04/2022 5:22 AM EDT PREPARE RBC Routine 11/04/2022 5:00 AM EDT TYPE AND SCREEN VALIDITY Routine 11/04/2022 2:58 AM EDT ABORH RECHECK STATUS Routine 11/04/2022 2:58 AM EDT SCAN, PERIPHERAL BLOOD Routine 2:58 AM EDT HEMOGRAM Routine 11/04/2022 2:58 AM EDT DIFFERENTIAL, AUTOMATED Routine 11/04/2022 2:58 AM EDT ABO/RH TYPING Routine 11/04/2022 2:58 AM EDT CBC (WITH DIFF) Routine 11/04/2022 2:58 AM EDT ANTIBODY SCREEN Routine 11/04/2022 2:58 AM EDT TYPE AND SCREEN ([facility]/CGP/FIDEL) Routine 11/04/2022 2:58 AM EDT MAGNESIUM Routine 11/04/2022 2:58 AM EDT BASIC METABOLIC PANEL Routine 11/04/2022 2:58 AM EDT HEMOGRAM Routine 11/03/2022 2:53 AM EDT DIFFERENTIAL, AUTOMATED Routine 11/03/2022 2:53 AM EDT CBC (WITH DIFF) Routine 11/03/2022 2:53 AM EDT MAGNESIUM Routine 11/03/2022 2:53 AM EDT BASIC METABOLIC PANEL Routine 11/03/2022 2:53 AM EDT IR THORACENTESIS RIGHT Routine 10:18 AM EDT IRON STAIN, BODY FLUID Routine 10:14 AM EDT CELL COUNT BODY FLUID Routine 11/02/2022 10:14 AM EDT PROTEIN LEVEL BODY FLUID Routine 11/02/2022 10:14 AM EDT LACTATE DEHYDROGENASE BODY FLUID Routine 11/02/2022 10:14 AM EDT SCAN, PERIPHERAL BLOOD Routine 4:10 AM EDT HEMOGRAM Routine 11/02/2022 4:10 AM EDT DIFFERENTIAL, AUTOMATED Routine 11/02/2022 4:10 AM EDT CBC (WITH DIFF) Routine 11/02/2022 4:10 AM EDT PROTEIN, TOTAL Routine 11/02/2022 4:10 AM EDT MAGNESIUM Routine 11/02/2022 4:10 AM EDT LACTATE DEHYDROGENASE Routine 11/02/2022 4:10 AM EDT BASIC METABOLIC PANEL Routine 11/02/2022 4:10 AM EDT XR CHEST PA AND LATERAL Routine 11/01/2022 12:05 PM EDT HEMOGRAM Routine 11/01/2022 4:20 AM EDT DIFFERENTIAL, AUTOMATED Routine 11/01/2022 4:20 AM EDT CBC (WITH DIFF) Routine 11/01/2022 4:20 AM EDT MAGNESIUM Routine 11/01/2022 4:20 AM EDT BASIC METABOLIC PANEL Routine 11/01/2022 4:20 AM EDT BASIC METABOLIC PANEL Routine 10/31/2022 2:23 PM EDT HEMOGRAM Routine 10/31/2022 1:45 AM EDT DIFFERENTIAL, AUTOMATED Routine 10/31/2022 1:45 AM EDT CBC (WITH DIFF) Routine 10/31/2022 1:45 AM EDT MAGNESIUM Routine 10/31/2022 1:45 AM EDT BASIC METABOLIC PANEL Routine 10/31/2022 1:45 AM EDT URINALYSIS MICROSCOPIC EXAM Routine 10/30/2022 12:15 PM EDT URINALYSIS WITH REFLEX CULTURE Routine 10/30/2022 12:15 PM EDT HEMOGRAM Routine 10/30/2022 1:16 AM EDT DIFFERENTIAL, AUTOMATED Routine 10/30/2022 1:16 AM EDT CBC (WITH DIFF) Routine 10/30/2022 1:16 AM EDT MAGNESIUM Routine 10/30/2022 1:16 AM EDT BASIC METABOLIC PANEL Routine 10/30/2022 1:16 AM EDT TYPE AND SCREEN VALIDITY Routine 10/29/2022 1:06 AM EDT ABORH RECHECK STATUS Routine 10/29/2022 1:06 AM EDT ABO/RH TYPING Routine 10/29/2022 1:06 AM EDT ANTIBODY SCREEN Routine 10/29/2022 1:06 AM EDT TYPE AND SCREEN ([facility]P/FIDEL) Routine 10/29/2022 1:06 AM EDT HEMOGRAM Routine 10/29/2022 12:40 AM EDT DIFFERENTIAL, AUTOMATED Routine 10/29/2022 12:40 AM EDT CBC (WITH DIFF) Routine 10/29/2022 12:40 AM EDT PROTEIN, TOTAL Routine 10/29/2022 12:40 AM EDT MAGNESIUM Routine 10/29/2022 12:40 AM EDT LACTATE DEHYDROGENASE Routine 10/29/2022 12:40 AM EDT BASIC METABOLIC PANEL Routine 10/29/2022 12:40 AM EDT FLUID REVIEW REPORT Routine 10/28/2022 5 :20 PM EDT IR THORACENTESIS RIGHT Routine 5:03 PM EDT BODY FLUID HOLD Routine 10/28/2022 3:36 PM EDT HEMATOLOGY FLUID REVIEW Routine 10/28/2022 3:36 PM EDT CELL COUNT BODY FLUID Routine 10/28/2022 3:36 PM EDT PROTEIN LEVEL BODY FLUID Routine 10/28/2022 3:36 PM EDT LACTATE DEHYDROGENASE BODY FLUID Routine 10/28/2022 3:36 PM EDT HEMOGRAM Routine 10/28/2022 4:50 AM EDT DIFFERENTIAL, AUTOMATED Routine 10/28/2022 4:50 AM EDT CBC (WITH DIFF) Routine 10/28/2022 4:50 AM EDT MAGNESIUM Routine 10/28/2022 4:50 AM EDT BASIC METABOLIC PANEL Routine 10/28/2022 4:50 AM EDT EKG 12-LEAD Routine 10/27/2022 10:26 AM EDT Atrial fibrillation, unspecified type HEMOGRAM Routine 10/27/2022 3:40 AM EDT DIFFERENTIAL, AUTOMATED Routine 10/27/2022 3:40 AM EDT CBC (WITH DIFF) Routine 10/27/2022 3:40 AM EDT MAGNESIUM Routine 10/27/2022 3:40 AM EDT BASIC METABOLIC PANEL Routine 10/27/2022 3:40 AM EDT ECHO COMPLETE Routine 10/26/2022 5:40 PM EDT Pleural effusion, bilateral XR CHEST ONE VIEW Routine 10/26/2022 10: 18 AM EDT HEMOGRAM Routine 10/26/2022 4:15 AM EDT DIFFERENTIAL, AUTOMATED Routine 10/26/2022 4:15 AM EDT CBC (WITH DIFF) Routine 10/26/2022 4:15 AM EDT MAGNESIUM Routine 10/26/2022 4:15 AM EDT BASIC METABOLIC PANEL Routine 10/26/2022 4:15 AM EDT HEMOGRAM Routine 10/25/2022 4:00 AM EDT DIFFERENTIAL, AUTOMATED Routine 10/25/2022 4:00 AM EDT HC CBC,PLT & AUTO DIFF Routine 4:00 AM EDT MAGNESIUM Routine 10/25/2022 4:00 AM EDT BASIC METABOLIC PANEL Routine 10/25/2022 4:00 AM EDT DIFFERENTIAL, MANUAL Routine 10/24/2022 1:40 AM EDT HEMOGRAM Routine 10/24/2022 1:40 AM EDT HC CBC,PLT & AUTO DIFF Routine 1:40 AM EDT MAGNESIUM Routine 10/24/2022 1:40 AM EDT BASIC METABOLIC PANEL Routine 10/24/2022 1:40 AM EDT PREPARE RBC Routine 10/23/2022 4:15 PM EDT HEMOGRAM Routine 10/23/2022 3:10 PM EDT DIFFERENTIAL, AUTOMATED Routine 10/23/2022 3:10 PM EDT HC CBC,PLT & AUTO DIFF Routine 3:10 PM EDT TRANSFUSE 1 UNIT PLATELET PHERESIS Routine 10/23/2022 1:16 PM EDT PATHOLOGY SLIDE REVIEW Routine 12:49 PM EDT PREPARE PLATELETS, APHERESIS Routine 10/23/2022 12:30 PM EDT PATHOLOGY SLIDE REVIEW Routine 12:00 PM EDT SCAN, PERIPHERAL BLOOD Routine 12:00 PM EDT HEMOGRAM Routine 10/23/2022 12:00 PM EDT DIFFERENTIAL, AUTOMATED Routine 10/23/2022 12:00 PM EDT DIRECT ANTIGLOBULIN TEST Routine 10/23/2022 12:00 PM EDT SCAN, PERIPHERAL BLOOD Routine 6:38 AM EDT HEMOGRAM Routine 10/23/2022 6:38 AM EDT DIFFERENTIAL, AUTOMATED Routine 10/23/2022 6:38 AM EDT COPPER, SERUM Routine 10/23/2022 6:38 AM EDT HC CBC,PLT & AUTO DIFF Routine 6:38 AM EDT MAGNESIUM Routine 10/23/2022 6:38 AM EDT FOLATE, SERUM Routine 10/23/2022 6:38 AM EDT FERRITIN Routine 10/23/2022 6:38 AM EDT VITAMIN B12 Routine 10/23/2022 6:38 AM EDT BASIC METABOLIC PANEL Routine 10/23/2022 6:38 AM EDT PREPARE RBC Routine 10/23/2022 2:20 AM EDT PREPARE PLATELETS, APHERESIS Routine 10/23/2022 1:45 AM EDT BLOOD CULTURE STAT 10/23/2022 12:42 AM EDT URINALYSIS DIPSTICK STAT 10/23/2022 1 2:40 AM EDT SCAN, PERIPHERAL BLOOD STAT 12:38 AM EDT HEMOGRAM STAT 10/23/2022 12:38 AM EDT TYPE AND SCREEN VALIDITY Routine 10/23/2022 12:01 AM EDT ABORH RECHECK STATUS Routine 10/23/2022 12:01 AM EDT ABO/RH TYPING Routine 10/23/2022 12:01 AM EDT ANTIBODY SCREEN Routine 10/23/2022 12:01 AM EDT TYPE AND SCREEN ([facility]/CGP/FIDEL) Routine 10/23/2022 12:01 AM EDT LAB SCAN 10/23/2022 12:00 AM EDT D-DIMER, QUANTITATIVE Routine 10/22/2022 11:10 PM EDT HEPATITIS C ANTIBODY Routine 10/22/2022 11:10 PM EDT HIV SCREEN, 4TH GENERATION ([facility]/CGP/APD/NLH) Routine 10/22/2022 11:10 PM EDT BLOOD CULTURE STAT 10/22/2022 11:10 PM EDT HC PARTIAL THROMBOPLASTIN TIME Routine 10/22/2022 11:10 PM EDT HC THROMBIN TIME Routine 10/22/2022 11:1 0 PM EDT PROTHROMBIN TIME Routine 10/22/2022 11:1 0 PM EDT FIBRINOGEN Routine 10/22/2022 11:10 PM EDT MAGNESIUM Routine 10/22/2022 11:10 PM EDT HC LACTIC DEHYDROGENASE Routine 10/22/2022 11:10 PM EDT HAPTOGLOBIN Routine 10/22/2022 11:10 PM EDT HEPATIC FUNCTION PANEL Routine 11:10 PM EDT BASIC METABOLIC PANEL Routine 10/22/2022 11:10 PM EDT POCT GLUCOSE Routine 10/22/2022 9:55 PM EDT documented in this encounter Results * (ABNORMAL) Differential, Automated (11/07/2022 2:58 AM EDT) Pathologist [facility] Neutrophil % 53.2 % [facility] Neutrophil Absolute 4.63 1.70 - 6.10 x10(3)/mc L [facility] Lymph % 9.9 % [facility] Lymphocytes Abs 0.9 0.9 - 3.2 x10(3)/mc L [facility] Monocyte % 34.6 % [facility] Monocyte Abs 3.0(H) 0.3 - 0.9 x10(3)/mc L [facility] Eos % 0.3 % [facility] Eosinophils Abs 0.0 0.0 - 0.4 x10(3)/mc L [facility] Basophil % 0.1 % [facility] Baso Absolute 0.0 0.0 - 0.1 x10(3)/mc L [facility] Immature Gran % 1.90 % [facility] Comment: Immature granulocytes(IG's)percentage and absolute count will include metamyelocytes, myelocytes, and promyelocytes. Blood smears from CBCs yielding IG's will be scanned manually for concordance. If this scan disagrees with the automated IG or if promyelocytes are noted, a manual differential will be performed. Immature Gran Absolute 0.17(H) 0.00 - 0.04 x10(3)/ L [facility] Blood 11/07/2022 2:58 AM EDT 11/07/2022 3:15 AM EDT Narrative Resulting Agency Comment Spec In Lab Kyrie Douglas MD HEMATOLOGY ORDERABLE S [facility] [address] * (ABNORMAL) Hemogram (11/07/2022 2:58 AM EDT) White Blood Cell 8.7 4.0 - 9.5 x10(3)/mc L [facility] Red Blood Cell 2.51(L) 4.00 - 5.21 x10(6)/mc L [facility] Hemoglobin 7.6(L) 11.7 - 15.5 g/dL [facility] Hematocrit 24.5(L) 35.7 - 45.8 % [facility] Mean Cell Volume 97.6(H) 82.6 - 94.4 fL [facility] Mean Cell Hemoglobin 30.3 27.1 - 32.0 pg [facility] Mean Cell Hemoglobin Concentration 31.0(L) 31.7 - 35.0 g/dL [facility] Platelet 191 145 - 357 x10(3)/mc L [facility] RDW Standard Deviation 59.3(H) 37.0 - 46.0 fL [facility] RDW coefficient of variation 18.7(H) 11.5 - 14.1 % [facility] Mean Platelet Volume 10.1 7.6 - 12.9 fL [facility] NRBC% auto 0.0 % [facility] NRBC Absolute 0.000 0.000 - 0.000 x10(3)/mc L [facility] Blood 11/07/2022 2:58 AM EDT 11/07/2022 3:15 AM EDT Narrative Resulting Agency Comment Spec In Lab Kyrie Douglas MD HEMATOLOGY ORDERABLE S Performing Organization Address City/[facility] Co de Phone Number [facility] [place] [address] * Magnesium (11/07/2022 2:58 AM EDT) Magnesium 0.71 0.69 - 1.07 mmol/L [facility] Blood 11/07/2022 2:58 AM EDT 11/07/2022 3:15 AM EDT Narrative Resulting Agency Comment Spec In Lab Cindy Yadav MD CHEMISTRY ORDERABLES Performing Organization Address [facility] Co de Phone Number [facility] [place] [address] * (ABNORMAL) Basic Metabolic Panel (non-fasting) (11/07/2022 2:58 AM EDT) Glucose 110 65 - 199 mg/dL [facility] Comment:Diabetes: >=200 mg/d L plus symptoms Blood Urea Nitrogen 13 8 - 18 mg/dL [facility] Creatinine 0.87 0.70 - 1.20 mg/dL [facility] Sodium 136 135 - 145 mmol/L [facility] Potassium 3.2(L) 3.5 - 5.0 mmol/L [facility] Comment: Please note: ??Patients with WBC >100,000 may have falsely elevated Potassium levels. ??For accurate Potassium quantification in these patients send serum separator tube (gold top) for subsequent determinations. ??Contact the Clinical Chemistry Laboratory if there are any questions. Chloride 98 98 - 107 mmol/L [facility] Carbon Dioxide 30 22 - 31 mmol/L [facility] Anion Gap 8 5 - 15 mmol/L [facility] Calcium 8.6 8.5 - 10.5 mg/dL [facility] Est Glomerular Filtration Rate 74 >=60 mL/min/1. 73 m?? [facility] Comment: This patient's estimated GFR [...] and symptoms in addition to eGFR. Blood 11/07/2022 2:58 AM EDT 11/07/2022 3:15 AM EDT Narrative Resulting Agency Comment Spec In Lab Cindy Yadav MD CHEMISTRY ORDERABLES Performing Organization Address City/State/[facility] Co de Phone Number [facility] [place] [address] * (ABNORMAL) Differential, Automated (11/06/2022 4:19 AM EDT) Neutrophil % 54.4 % [facility] Neutrophil Absolute 5.14 1.70 - 6.10 x10(3)/mc L [facility] Lymph % 8.5 % [facility] Lymphocytes Abs 0.8(L) 0.9 - 3.2 x10(3)/mc L [facility] Monocyte % 33.7 % [facility] Monocyte Abs 3.2(H) 0.3 - 0.9 x10(3)/mc L [facility] Eos % 0.1 % [facility] Eosinophils Abs 0.0 0.0 - 0.4 x10(3)/ L [facility] Basophil % 0.2 % [facility] Baso Absolute 0.0 0.0 - 0.1 x10(3)/ L [facility] Immature Gran % 3.10 % [facility] Comment: Immature granulocytes(IG's)percentage and absolute count will include metamyelocytes, myelocytes, and promyelocytes. Blood smears from CBCs yielding IG's will be scanned manually for concordance. If this scan disagrees with the automated IG or if promyelocytes are noted, a manual differential will be performed. Immature Gran Absolute 0.29(H) 0.00 - 0.04 x10(3)/ L [facility] Blood 11/06/2022 4:19 AM EDT 11/06/2022 4:30 AM EDT Narrative Resulting Agency Comment Spec In Lab Kyrie Douglas MD HEMATOLOGY ORDERABLE S [facility] [place] [address] * (ABNORMAL) Hemogram (11/06/2022 4:19 AM EDT) White Blood Cell 9.4 4.0 - 9.5 x10(3)/ L [facility] Red Blood Cell 2.65(L) 4.00 - 5.21 x10(6)/ L [facility] Hemoglobin 7.8(L) 11.7 - 15.5 g/dL [facility] Hematocrit 25.4(L) 35.7 - 45.8 % [facility] Mean Cell Volume 95.8(H) 82.6 - 94.4 fL [facility] Mean Cell Hemoglobin 29.4 27.1 - 32.0 pg [facility] Mean Cell Hemoglobin Concentration 30.7(L) 31.7 - 35.0 g/dL [facility] Platelet 207 145 - 357 x10(3)/ L [facility] RDW Standard Deviation 58.8(H) 37.0 - 46.0 fL [facility] RDW coefficient of variation 18.7(H) 11.5 - 14.1 % [facility] Mean Platelet Volume 10.2 7.6 - 12.9 fL [facility] NRBC% auto 0.0 % [facility] NRBC Absolute 0.000 0.000 - 0.000 x10(3)/mc L [facility] Blood 11/06/2022 4:19 AM EDT 11/06/2022 4:30 AM EDT Narrative Resulting Agency Comment Spec In Lab Kyrie Douglas MD HEMATOLOGY ORDERABLE S Performing Organization Address [facility] Co de Phone Number [facility] [place] [address] * Magnesium (11/06/2022 4:19 AM EDT) Magnesium 0.77 0.69 - 1.07 mmol/L [facility] Blood 11/06/2022 4:19 AM EDT 11/06/2022 4:30 AM EDT Narrative Resulting Agency Comment Spec In Lab Cindy Yadav MD CHEMISTRY ORDERABLES Performing Organization Address [facility] de Phone Number [facility] [place] [address] * (ABNORMAL) Basic Metabolic Panel (non-fasting) (11/06/2022 4:19 AM EDT) Glucose 110 65 - 199 mg/dL [facility] Comment:Diabetes: >=200 mg/d L plus symptoms Blood Urea Nitrogen 13 8 - 18 mg/dL [facility] Creatinine 0.84 0.70 - 1.20 mg/dL [facility] Sodium 132(L) 135 - 145 mmol/L [facility] Potassium 3.0(Criti sabiha) 3.5 - 5.0 mmol/L [facility] Comment: called by [facility]/read back by teodoro blackmon/ 11-06-22 [id number] Please note: ??Patients with WBC >100,000 may have falsely elevated Potassium levels. ??For accurate Potassium quantification in these patients send serum separator tube (gold top) for subsequent determinations. ??Contact the Clinical Chemistry Laboratory if there are any questions. Chloride 93(L) 98 - 107 mmol/L [facility] Carbon Dioxide 31 22 - 31 mmol/L [facility] Anion Gap 8 5 - 15 mmol/L [facility] Calcium 8.7 8.5 - 10.5 mg/dL [facility] Est Glomerular Filtration Rate 77 >=60 mL/min/1. 73 m?? [facility] Comment: This patient's estimated GFR [...] and symptoms in addition to eGFR. Blood 11/06/2022 4:19 AM EDT 11/06/2022 4:30 AM EDT Narrative Resulting Agency Comment Spec In Lab Cindy Leif QUINTANILLA CHEMISTRY ORDERABLES Performing Organization Address City/State/[facility] Co de Phone Number [facility] [place] [address] * CT Cardiac for Morphology & Function (11/05/2022 4:34 PM EDT) Anatomical Region Laterality Modality Chest, Cardiac Computed Tomogra phy Impressions 11/06/2022 8:32 AM EDT Pre-TAVR measurements as above. 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 Moderate to large pleural effusion on the right and small to moderate pleural effusion on the left. Associated partial compression atelectasis of the bilateral lower lobes. Right-sided port catheter ends at the most cranial aspect of the SVC. Biatrial enlargement of the heart. Thank you for letting us participate in the care of this patient. ??If you are a health care provider and have any questions regarding this report, please contact the number below. ??For patients who have questions please contact the health foster care worker that requested your imaging first. ? Electronically signed by: Yuki Alaniz MD, [facility] ([phone]), at 11/06/2022 8:32 AM Narrative 11/06/2022 8:32 AM EDT EXAMINATION: CT CARDIAC FOR MORPHOLOGY & FUNCTION CLINICAL HISTORY: TAVR protocol COMPARISON: Outside chest CT 10/22/2022. TECHNIQUE: After time bolus, 0.625 mm thick axial contiguous sections were obtained through the heart via ECG-gated helical acquisition during intravenous administration of 109 cc Omnipaque 350. (CTA abdomen and pelvis is reported separately.) Post-processing was performed on an independent computer workstation including multiplanar MIP reconstructions. FINDINGS: Heart rate: mean 93 bpm, range 71 to 250 bpm Heart rhythm: Irregularly irregular ECG gating: Not successful identification of every R wave. ECG editing: Not performed. Artifacts: No significant artifacts. Aortic valve: Imaging phase: 15% Calcification of leaflets: Tricuspid, trileaflet aortic valve. Moderate calcification of the right and left leaflet and mild to moderate calcification of the noncoronary leaflet. Suggested fluoroscopic angulation based on line extending through the nadirs of the three sinuses of Valsalva, set equidistant: ?? Anterior oblique plane: [place] Anterior oblique angulation: 20 Craniocaudal plane: CAU Craniocaudal angulation: 12 [id number] height: Imaging phase: 95% Right: 14.6 mm Left: 9.8 mm Valve leaflet length: Imaging phase: 95% Right: 16.2 mm Left: 13.9 mm Annulus: Imaging phase: 15% Diameters: 21.9 mm x 27.3 mm Area: 474 mm2 Circumference: 78 mm Calcification: None. Aortic root/sinuses of Valsalva: Imaging phase: 15% Diameters: 32.6 mm Aortoventricular angle: 62.6 degrees Sinotubular junction: Imaging phase: 15% Effacement: Not effaced. Diameters: 29.9 mm x 31.4 mm Area: 729 mm2 Circumference: 96 mm Calcification: Near circumferential moderate calcification. Thoracic aorta beyond the sinotubular junction: Mid ascending aorta: 38.5 mm x 39.9 mm Mid aortic arch: 31 mm Mid descending aorta: 26 mm Distal descending aorta, near hiatus: 25 mm Aortic arch branch vessels: Configuration: 3 vessels in classic configuration. Patency: Widely patent. Left subclavian artery: 5.2 mm x 6.7 mm Left axillary artery: 4.2 mm x 4.8 mm Annulus to innominate distance: 10.2 cm Other cardiovascular structures: Severe biatrial enlargement of the heart. Moderate coronary artery atherosclerotic calcification. Right-sided port catheter ends at the most cranial aspect of the SVC at the confluence of left and right brachiocephalic vein. Pulmonary parenchyma, airways, pleura: Partial compression atelectasis of the bilateral lower lobes, more on the right than on the left. Central airways are patent. Moderate to large right pleural effusion extends through the dependent half of the right hemithorax. Small to moderate left pleural effusion. There is ongoing pleural nodularity with some calcifications on the left related to history of pleural carcinomatosis but no significant change compared to 11/05/2021. Lymph nodes: Scattered prominent lymph nodes without definite interval enlargement. Unchanged posttreatment anterior mediastinal mass with calcifications. Upper abdomen: See separately reported CTA abdomen and pelvis. Skeletal structures: No significant findings. Procedure Note Yuki Mccullough MD - 11/06/2022 EXAMINATION: CT CARDIAC FOR MORPHOLOGY & FUNCTION CLINICAL HISTORY: TAVR protocol COMPARISON: Outside chest CT 10/22/2022. TECHNIQUE: After time bolus, 0.625 mm thick axial contiguous sectionswere obtained through the heart via ECG-gated helical acquisition duringintravenous administration of 109 cc Omnipaque 350. (CTA abdomen and pelvis isreported separately.) Post-processing was performed on an independent computer workstation including multiplanar MIP reconstructions. FINDINGS: Heart rate: mean 93 bpm, range 71 to 250 bpm Heart rhythm: Irregularly irregular ECG gating: Not successful identification of every R wave. ECG editing: Not performed. Artifacts: No significant artifacts. Aortic valve: Imaging phase: 15% Calcification of leaflets: Tricuspid, trileaflet aortic valve. Moderate calcification of the right and left leaflet and mild to moderatecalcification of the noncoronary leaflet. Suggested fluoroscopic angulation based on line extending through thenadirs of the three sinuses of Valsalva, set equidistant: Anterior oblique plane: [place] Anterior oblique angulation: 20 Craniocaudal plane: CAU Craniocaudal angulation: 12 [id number] height: Imaging phase: 95% Right: 14.6 mm Left: 9.8 mm Valve leaflet length: Imaging phase: 95% Right: 16.2 mm Left: 13.9 mm Annulus: Imaging phase: 15% Diameters: 21.9 mm x 27.3 mm Area: 474 mm2 Circumference: 78 mm Calcification: None. Aortic root/sinuses of Valsalva: Imaging phase: 15% Diameters: 32.6 mm Aortoventricular angle: 62.6 degrees Sinotubular junction: Imaging phase: 15% Effacement: Not effaced. Diameters: 29.9 mm x 31.4 mm Area: 729 mm2 Circumference: 96 mm Calcification: Near circumferential moderate calcification. Thoracic aorta beyond the sinotubular junction: Mid ascending aorta: 38.5 mm x 39.9 mm Mid aortic arch: 31 mm Mid descending aorta: 26 mm Distal descending aorta, near hiatus: 25 mm Aortic arch branch vessels: Configuration: 3 vessels in classic configuration. Patency: Widely patent. Left subclavian artery: 5.2 mm x 6.7 mm Left axillary artery: 4.2 mm x 4.8 mm Annulus to innominate distance: 10.2 cm Other cardiovascular structures: Severe biatrial enlargement of theheart. Moderate coronary artery atherosclerotic calcification. Right-sided port catheter ends at the most cranial aspect of the SVC at the confluence ofleft and right brachiocephalic vein. Pulmonary parenchyma, airways, pleura: Partial compression atelectasis ofthe bilateral lower lobes, more on the right than on the left. Central airwaysare patent. Moderate to large right pleural effusion extends through thedependent half of the right hemithorax. Small to moderate left pleural effusion.There is ongoing pleural nodularity with some calcifications on the left relatedto history of pleural carcinomatosis but no significant change compared to 11/05/2021. Lymph nodes: Scattered prominent lymph nodes without definite interval enlargement. Unchanged posttreatment anterior mediastinal mass with calcifications. Upper abdomen: See separately reported CTA abdomen and pelvis. Skeletal structures: No significant findings. IMPRESSION Pre-TAVR measurements as above. 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 Moderate to large pleural effusion on the right and small to moderatepleural effusion on the left. Associated partial compression atelectasis of the bilateral lower lobes. Right-sided port catheter ends at the most cranial aspect of the SVC. Biatrial enlargement of the heart. Thank you for letting us participate in the care of this patient. If youare a health care provider and have any questions regarding this report,please contact the number below. For patients who have questions please contactthe health foster care worker that requested your imaging first. Douglas Escobedo MD IMG CT ORDERABLES * CT Angiogram Abdomen & Pelvis w Contrast (Generic) (11/05/2022 4:34 PM EDT) Anatomical Region Laterality Modality Abdomen, Pelvis Computed Tomogra phy Impressions 11/09/2022 8:26 AM EDT 1. ??Minimal aortoiliac luminal diameters as described above. 2. ??Small volume ascites. 3. ??Fat and colon containing supra umbilical ventral hernia without obstruction or strangulation. 4. ??Uterine fibroids. 5. ??Cholelithiasis without cholecystitis. Thank you for letting us participate in the care of this patient. ??If you are a health care provider and have any questions regarding this report, please contact the number below. ??For patients who have questions please contact the health foster care worker that requested your imaging first. ? Electronically signed by: Josh Coates MD, [facility] ([phone]), at 11/09/2022 8:26 AM Narrative 11/09/2022 8:26 AM EDT EXAMINATION: CT ANGIOGRAM ABDOMEN AND PELVIS W CONTRAST (GENERIC) CLINICAL HISTORY: TAVR protocol TECHNIQUE: Helical CTA of the abdomen and pelvis after intravenous administration of contrast. Administered 108.6 ml of OMNIPAQUE 350.00 mg/ml. Coronal and sagittal reconstructions were generated. Three-dimensional volume reconstructions were created on an independent computer workstation. COMPARISON: CT chest on pelvis on 11/06/2019 FINDINGS: VASCULAR Abdominal aorta: The abdominal aorta exhibits mild tortuosity in the infrarenal segment without aneurysmal dilation. Moderate calcified atheroma scattered throughout without hemodynamically significant stenosis. (Minimum bidimensional) Suprarenal aorta: 22.4 x 24.7 mm Juxtarenal aorta: 16.8 x 20.1 mm Infrarenal aorta: 11.7 x 16.7 mm Degree of calcification at aortic bifurcation: Mild Branch vessels: Celiac: No stenosis. SMA: Mild less than 50% focal stenosis at the origin. Right renal artery: No stenosis. Left renal artery: Mild focal less than 50% stenosis at the origin SMOOTH: Mild focal stenosis at the origin. Iliac/Femoral Arteries: No aneurysm or hemodynamically significant stenosis (Smallest luminal diameter) Right common iliac: 8.9 x 11.6 mm Right external iliac: 7.2 x 9.6 mm Right common femoral: 7.6 x 10.0 mm Left common iliac: 7.8 x 10.6 mm Left external iliac: 7.7 x 9.9 mm Left common femoral: 6.8 x 9.8 mm Tortuosity on the right: 24 degrees/cm Tortuosity on the left: 23 degrees/cm NON-VASCULAR FINDINGS Liver: Normal size and attenuation without lesions. Bile ducts: Nondilated. Gallbladder: Small calcified stones layered apparently within the gallbladder lumen. No gallbladder wall thickening. Pancreas: Normal attenuation without ductal dilatation. Spleen: Normal. Adrenals: Normal. Kidneys: Normal. Urinary Bladder: Normal. Lymph Nodes: No enlarged lymph nodes. Bowel: Moderate amount stool throughout the colon. There is a widemouth umbilical ventral hernia which measures 5.5 cm in diameter and contains a knuckle of colon without signs of obstruction. Peritoneum and retroperitoneum: Small volume of intraperitoneal free fluid. Abdominal wall: There are several fat-containing and colon containing supraumbilical ventral hernia. Reproductive organs: Myomatous uterus with multiple partially calcified uterine fibroids measuring up to 5.5 cm. No adnexal mass. Osseous structures: Mild levoconvex curvature of the thoracolumbar spine centered on the L1-L2 disc space with scattered degenerative changes throughout the spine. No suspicious osseous lesions are present. Procedure Note Josh Coates MD - 11/09/2022 EXAMINATION: CT ANGIOGRAM ABDOMEN AND PELVIS W CONTRAST (GENERIC) CLINICAL HISTORY: TAVR protocol TECHNIQUE: Helical CTA of the abdomen and pelvis after intravenous administration of contrast. Administered 108.6 ml of OMNIPAQUE 350.00mg/ml. Coronal and sagittal reconstructions were generated. Three-dimensionalvolume reconstructions were created on an independent computer workstation. COMPARISON: CT chest on pelvis on 11/06/2019 FINDINGS: VASCULAR Abdominal aorta: The abdominal aorta exhibits mild tortuosity in theinfrarenal segment without aneurysmal dilation. Moderate calcified atheromascattered throughout without hemodynamically significant stenosis. (Minimum bidimensional) Suprarenal aorta: 22.4 x 24.7 mm Juxtarenal aorta: 16.8 x 20.1 mm Infrarenal aorta: 11.7 x 16.7 mm Degree of calcification at aortic bifurcation: Mild Branch vessels: Celiac: No stenosis. SMA: Mild less than 50% focal stenosis at the origin. Right renal artery: No stenosis. Left renal artery: Mild focal less than 50% stenosis at the origin SMOOTH: Mild focal stenosis at the origin. Iliac/Femoral Arteries: No aneurysm or hemodynamically significantstenosis (Smallest luminal diameter) Right common iliac: 8.9 x 11.6 mm Right external iliac: 7.2 x 9.6 mm Right common femoral: 7.6 x 10.0 mm Left common iliac: 7.8 x 10.6 mm Left external iliac: 7.7 x 9.9 mm Left common femoral: 6.8 x 9.8 mm Tortuosity on the right: 24 degrees/cm Tortuosity on the left: 23 degrees/cm NON-VASCULAR FINDINGS Liver: Normal size and attenuation without lesions. Bile ducts: Nondilated. Gallbladder: Small calcified stones layered apparently within thegallbladder lumen. No gallbladder wall thickening. Pancreas: Normal attenuation without ductal dilatation. Spleen: Normal. Adrenals: Normal. Kidneys: Normal. Urinary Bladder: Normal. Lymph Nodes: No enlarged lymph nodes. Bowel: Moderate amount stool throughout the colon. There is a wid[place]outh umbilical ventral hernia which measures 5.5 cm in diameter and containsa knuckle of colon without signs of obstruction. Peritoneum and retroperitoneum: Small volume of intraperitoneal freefluid. Abdominal wall: There are several fat-containing and colon containing supraumbilical ventral hernia. Reproductive organs: Myomatous uterus with multiple partially calcifieduterine fibroids measuring up to 5.5 cm. No adnexal mass. Osseous structures: Mild levoconvex curvature of the thoracolumbar spine centered on the L1-L2 disc space with scattered degenerative changesthroughout the spine. No suspicious osseous lesions are present. IMPRESSION 1. Minimal aortoiliac luminal diameters as described above. 2. Small volume ascites. 3. Fat and colon containing supra umbilical ventral hernia withoutobstruction or strangulation. 4. Uterine fibroids. 5. Cholelithiasis without cholecystitis. Thank you for letting us participate in the care of this patient. If youare a health care provider and have any questions regarding this report,please contact the number below. For patients who have questions please contactthe health foster care worker that requested your imaging first. Douglas Escobedo MD IM CT ORDERABLES * (ABNORMAL) Differential, Automated (11/05/2022 3:10 AM EDT) Neutrophil % 58.3 % [facility] Neutrophil Absolute 5.95 1.70 - 6.10 x10(3)/mc L [facility] Lymph % 5.7 % [facility] Lymphocytes Abs 0.6(L) 0.9 - 3.2 x10(3)/mc L [facility] Monocyte % 31.9 % [facility] Monocyte Abs 3.3(H) 0.3 - 0.9 x10(3)/mc L [facility] Eos % 0.3 % [facility] Eosinophils Abs 0.0 0.0 - 0.4 x10(3)/mc L [facility] Basophil % 0.2 % [facility] Baso Absolute 0.0 0.0 - 0.1 x10(3)/mc L [facility] Immature Gran % 3.60 % [facility] Comment: Immature granulocytes(IG's)percentage and absolute count will include metamyelocytes, myelocytes, and promyelocytes. Blood smears from CBCs yielding IG's will be scanned manually for concordance. If this scan disagrees with the automated IG or if promyelocytes are noted, a manual differential will be performed. Immature Gran Absolute 0.37(H) 0.00 - 0.04 x10(3)/mc L [facility] Blood 11/05/2022 3:10 AM EDT 11/05/2022 3:27 AM EDT Narrative Resulting Agency Comment Spec In Lab Kyrie Douglas MD HEMATOLOGY ORDERABLE S Performing Organization Address City/State/[facility] Co de Phone Number [facility] [address] * (ABNORMAL) Hemogram (11/05/2022 3:10 AM EDT) White Blood Cell 10.2(H) 4.0 - 9.5 x10(3)/ L [facility] Red Blood Cell 2.65(L) 4.00 - 5.21 x10(6)/ L [facility] Hemoglobin 8.0(L) 11.7 - 15.5 g/dL [facility] Hematocrit 25.1(L) 35.7 - 45.8 % [facility] Mean Cell Volume 94.7(H) 82.6 - 94.4 fL [facility] Mean Cell Hemoglobin 30.2 27.1 - 32.0 pg [facility] Mean Cell Hemoglobin Concentration 31.9 31.7 - 35.0 g/dL [facility] Platelet 188 145 - 357 x10(3)/mc L [facility] RDW Standard Deviation 61.0(H) 37.0 - 46.0 fL [facility] RDW coefficient of variation 19.2(H) 11.5 - 14.1 % [facility] Mean Platelet Volume 10.4 7.6 - 12.9 fL [facility] NRBC% auto 0.0 % [facility] NRBC Absolute 0.000 0.000 - 0.000 x10(3)/mc L [facility] Blood 11/05/2022 3:10 AM EDT 11/05/2022 3:27 AM EDT Narrative Resulting Agency Comment Spec In Lab Kyrie Douglas MD HEMATOLOGY ORDERABLE S Performing Organization Address [facility] Co de Phone Number [facility] [place] [address] * Magnesium (11/05/2022 3:10 AM EDT) Magnesium 0.73 0.69 - 1.07 mmol/L [facility] Blood 11/05/2022 3:10 AM EDT 11/05/2022 3:27 AM EDT Narrative Resulting Agency Comment Spec In Lab Cindy Yadav MD CHEMISTRY ORDERABLES Performing Organization Address [facility] de Phone Number [facility] [place] [address] * (ABNORMAL) Basic Metabolic Panel (non-fasting) (11/05/2022 3:10 AM EDT) Glucose 114 65 - 199 mg/dL [facility] Comment:Diabetes: >=200 mg/d L plus symptoms Blood Urea Nitrogen 16 8 - 18 mg/dL [facility] Creatinine 0.92 0.70 - 1.20 mg/dL [facility] Sodium 135 135 - 145 mmol/L [facility] Potassium 3.1(L) 3.5 - 5.0 mmol/L [facility] Comment: result [id number] Please note: ??Patients with WBC >100,000 may have falsely elevated Potassium levels. ??For accurate Potassium quantification in these patients send serum separator tube (gold top) for subsequent determinations. ??Contact the Clinical Chemistry Laboratory if there are any questions. Chloride 92(L) 98 - 107 mmol/L [facility] Carbon Dioxide 38(H) 22 - 31 mmol/L [facility] LABORATORY Anion Gap 5 5 - 15 mmol/L [facility] Calcium 8.6 8.5 - 10.5 mg/dL [facility] Est Glomerular Filtration Rate 69 >=60 mL/min/1. 73 m?? [facility] Comment: This patient's estimated GFR [...] and symptoms in addition to eGFR. Blood 11/05/2022 3:10 AM EDT 11/05/2022 3:27 AM EDT Narrative Resulting Agency Comment Spec In Lab Cindy Yadav MD CHEMISTRY ORDERABLES Performing Organization Address City/[facility]/ZIP Co de Phone Number [facility] [place] [address] * Transfuse RBC (11/04/2022 7:19 AM EDT) Flavia Jay MD NURSING TREATMENT ORDERABLES - BLOOD ADMIN * Transfuse RBC (11/04/2022 7:19 AM EDT) Flavia Jay MD NURSING TREATMENT ORDERABLES - BLOOD ADMIN * Prepare RBC (11/04/2022 5:00 AM EDT) Dispensed? Yes [facility] Blood 11/04/2022 5:00 AM EDT 11/04/2022 4:58 AM EDT Flavia Jay MD BLOOD BANK PRODUC T ORDERABLES Performing Organization Address City/[facility]/[place] [address] * Type and Screen Validity (11/04/2022 2:58 AM EDT) T&S only valid at [facility] LABORATORY Comment:This Type and Screen result is only valid at the [facility] Blood 11/04/2022 2:58 AM EDT 11/04/2022 3:08 AM EDT Narrative Resulting Agency Comment Spec In Lab Flavia Jay MD BLOOD BANK LAB OR DERABLES Performing Organization Address City/[facility]/ZIP Co de Phone Number [facility] [place] [address] * Scan, Peripheral Blood (11/04/2022 2:58 AM EDT) Plat estimate Normal [facility] RBC Morphology Abnormal [facility] Hypochromia Slight [facility] Ovalocytes 1-5 /HPF [facility] Blood 11/04/2022 2:58 AM EDT 11/04/2022 3:05 AM EDT Narrative Resulting Agency Comment Spec In Lab Kyrie Douglas MD HEMATOLOGY ORDERABLE S Performing Organization Address City/[facility]/ZIP Co de Phone Number [facility] [place] [address] * ABORH Recheck Status (11/04/2022 2:58 AM EDT) Pathologist [facility] ABORH Type Recheck Completed [facility] Blood 11/04/2022 2:58 AM EDT 11/04/2022 3:08 AM EDT Narrative Resulting Agency Comment Spec In Lab Flavia Jay MD BLOOD BANK LAB OR DERABLES Performing Organization Address City/[facility]/ZIP Co de Phone Number [facility] [address] * Antibody screen (11/04/2022 2:58 AM EDT) Ab Screen Interp Negative [facility] Expires at [id number] on: 11/07/2022 [facility] Blood 11/04/2022 2:58 AM EDT 11/04/2022 3:08 AM EDT Narrative Resulting Agency Comment Spec In Lab Flavia Jay MD BLOOD BANK LAB OR DERABLES Performing Organization Address City/[facility]/ZIP Co de Phone Number [facility] [place] [address] * ABO/Rh Typing (11/04/2022 2:58 AM EDT) ABORH Type A Pos [facility] Blood 11/04/2022 2:58 AM EDT 11/04/2022 3:08 AM EDT Narrative Resulting Agency Comment Spec In Lab Flavia Jay MD BLOOD BANK LAB OR DERABLES Performing Organization Address City/[facility]/ZIP Co de Phone Number [facility] [place] [address] * (ABNORMAL) Differential, Automated (11/04/2022 2:58 AM EDT) Neutrophil % 57.5 % [facility] Neutrophil Absolute 4.93 1.70 - 6.10 x10(3)/mc L [facility] Lymph % 4.9 % [facility] Lymphocytes Abs 0.4(L) 0.9 - 3.2 x10(3)/mc L [facility] Monocyte % 31.9 % [facility] Monocyte Abs 2.7(H) 0.3 - 0.9 x10(3)/mc L [facility] Eos % 0.1 % [facility] Eosinophils Abs 0.0 0.0 - 0.4 x10(3)/mc L [facility] Basophil % 0.2 % [facility] Baso Absolute 0.0 0.0 - 0.1 x10(3)/mc L [facility] Immature Gran % 5.40 % [facility] Comment: Immature granulocytes(IG's)percentage and absolute count will include metamyelocytes, myelocytes, and promyelocytes. Blood smears from CBCs yielding IG's will be scanned manually for concordance. If this scan disagrees with the automated IG or if promyelocytes are noted, a manual differential will be performed. Immature Gran Absolute 0.46(H) 0.00 - 0.04 x10(3)/mc L [facility] Blood 11/04/2022 2:58 AM EDT 11/04/2022 3:05 AM EDT Narrative Resulting Agency Comment Spec In Lab Kyrie Douglas MD HEMATOLOGY ORDERABLE S Performing Organization Address City/[facility]/ZIP Co de Phone Number [facility] [place] [address] * (ABNORMAL) Hemogram (11/04/2022 2:58 AM EDT) White Blood Cell 8.6 4.0 - 9.5 x10(3)/ L [facility] Red Blood Cell 2.28(L) 4.00 - 5.21 x10(6)/mc L [facility] Hemoglobin 6.8(L) 11.7 - 15.5 g/dL [facility] Hematocrit 22.3(L) 35.7 - 45.8 % [facility] Mean Cell Volume 97.8(H) 82.6 - 94.4 fL [facility] Mean Cell Hemoglobin 29.8 27.1 - 32.0 pg [facility] Mean Cell Hemoglobin Concentration 30.5(L) 31.7 - 35.0 g/dL [facility] Platelet 155 145 - 357 x10(3)/mc L [facility] RDW Standard Deviation 54.5(H) 37.0 - 46.0 fL [facility] RDW coefficient of variation 16.1(H) 11.5 - 14.1 % [facility] Mean Platelet Volume 10.1 7.6 - 12.9 fL [facility] NRBC% auto 0.0 % [facility] NRBC Absolute 0.000 0.000 - 0.000 x10(3)/mc L [facility] Blood 11/04/2022 2:58 AM EDT 11/04/2022 3:05 AM EDT Narrative Resulting Agency Comment Spec In Lab Kyrie Douglas MD HEMATOLOGY ORDERABLE S Performing Organization Address City/[facility]/ZIP Co de Phone Number [facility] [place] [address] * Magnesium (11/04/2022 2:58 AM EDT) Magnesium 0.80 0.69 - 1.07 mmol/L [facility] Blood 11/04/2022 2:58 AM EDT 11/04/2022 3:05 AM EDT Narrative Resulting Agency Comment Spec In Lab Cindy Yadav MD CHEMISTRY ORDERABLES Performing Organization Address City/State/[facility] Co de Phone Number [facility] [place] [address] * (ABNORMAL) Basic Metabolic Panel (non-fasting) (11/04/2022 2:58 AM EDT) Glucose 118 65 - 199 mg/dL [facility] Comment:Diabetes: >=200 mg/d L plus symptoms Blood Urea Nitrogen 14 8 - 18 mg/dL [facility] Creatinine 0.76 0.70 - 1.20 mg/dL [facility] Sodium 135 135 - 145 mmol/L [facility] Potassium 3.6 3.5 - 5.0 mmol/L [facility] Comment: Please note: ??Patients with WBC >100,000 may have falsely elevated Potassium levels. ??For accurate Potassium quantification in these patients send serum separator tube (gold top) for subsequent determinations. ??Contact the Clinical Chemistry Laboratory if there are any questions. Chloride 90(L) 98 - 107 mmol/L [facility] Carbon Dioxide 42(H) 22 - 31 mmol/L [facility] Anion Gap 3(L) 5 - 15 mmol/L [facility] Calcium 8.3(L) 8.5 - 10.5 mg/dL [facility] Est Glomerular Filtration Rate 87 >=60 mL/min/1. 73 m?? [facility] Comment: This patient's estimated GFR [...] and symptoms in addition to eGFR. Blood 11/04/2022 2:58 AM EDT 11/04/2022 3:05 AM EDT Narrative Resulting Agency Comment Spec In Lab Cindy Yadav MD CHEMISTRY ORDERABLES Performing Organization Address City/[facility]/ZIP Co de Phone Number [facility] [place] [address] * (ABNORMAL) Differential, Automated (11/03/2022 2:53 AM EDT) Neutrophil % 61.1 % [facility] Neutrophil Absolute 4.99 1.70 - 6.10 x10(3)/mc L [facility] Lymph % 5.0 % [facility] Lymphocytes Abs 0.4(L) 0.9 - 3.2 x10(3)/mc L [facility] Monocyte % 25.8 % [facility] Monocyte Abs 2.1(H) 0.3 - 0.9 x10(3)/mc L [facility] Eos % 0.1 % [facility] Eosinophils Abs 0.0 0.0 - 0.4 x10(3)/mc L [facility] Basophil % 0.1 % [facility] Baso Absolute 0.0 0.0 - 0.1 x10(3)/mc L [facility] Immature Gran % 7.90 % [facility] Comment: Immature granulocytes(IG's)percentage and absolute count will include metamyelocytes, myelocytes, and promyelocytes. Blood smears from CBCs yielding IG's will be scanned manually for concordance. If this scan disagrees with the automated IG or if promyelocytes are noted, a manual differential will be performed. Immature Gran Absolute 0.65(H) 0.00 - 0.04 x10(3)/mc L [facility] Blood 11/03/2022 2:53 AM EDT 11/03/2022 2:59 AM EDT Narrative Resulting Agency Comment Spec In Lab Kyrie Douglas MD HEMATOLOGY ORDERABLE S [facility] [address] * (ABNORMAL) Hemogram (11/03/2022 2:53 AM EDT) White Blood Cell 8.2 4.0 - 9.5 x10(3)/mc L [facility] Red Blood Cell 2.33(L) 4.00 - 5.21 x10(6)/mc L [facility] Hemoglobin 7.0(L) 11.7 - 15.5 g/dL [facility] Hematocrit 22.6(L) 35.7 - 45.8 % [facility] Mean Cell Volume 97.0(H) 82.6 - 94.4 fL [facility] Mean Cell Hemoglobin 30.0 27.1 - 32.0 pg [facility] Mean Cell Hemoglobin Concentration 31.0(L) 31.7 - 35.0 g/dL [facility] Platelet 154 145 - 357 x10(3)/mc L [facility] RDW Standard Deviation 54.7(H) 37.0 - 46.0 fL [facility] RDW coefficient of variation 15.6(H) 11.5 - 14.1 % [facility] Mean Platelet Volume 10.5 7.6 - 12.9 fL [facility] NRBC% auto 0.2 % [facility] NRBC Absolute 0.020(H) 0.000 - 0.000 x10(3)/mc L [facility] Blood 11/03/2022 2:53 AM EDT 11/03/2022 2:59 AM EDT Narrative Resulting Agency Comment Spec In Lab Kyrie Douglas MD HEMATOLOGY ORDERABLE S [facility] [place] [address] * Magnesium (11/03/2022 2:53 AM EDT) Magnesium 0.84 0.69 - 1.07 mmol/L [facility] Blood 11/03/2022 2:53 AM EDT 11/03/2022 2:59 AM EDT Narrative Resulting Agency Comment Spec In Lab Cindy Yadav MD CHEMISTRY ORDERABLES [facility] [place] [address] * (ABNORMAL) Basic Metabolic Panel (non-fasting) (11/03/2022 2:53 AM EDT) Glucose 127 65 - 199 mg/dL [facility] Comment:Diabetes: >=200 mg/d L plus symptoms Blood Urea Nitrogen 17 8 - 18 mg/dL [facility] Creatinine 0.76 0.70 - 1.20 mg/dL [facility] Sodium 136 135 - 145 mmol/L [facility] Potassium 3.8 3.5 - 5.0 mmol/L [facility] Comment: Please note: ??Patients with WBC >100,000 may have falsely elevated Potassium levels. ??For accurate Potassium quantification in these patients send serum separator tube (gold top) for subsequent determinations. ??Contact the Clinical Chemistry Laboratory if there are any questions. Chloride 91(L) 98 - 107 mmol/L [facility] Carbon Dioxide 44(H) 22 - 31 mmol/L [facility] Anion Gap 1(L) 5 - 15 mmol/L [facility] Calcium 8.3(L) 8.5 - 10.5 mg/dL [facility] Est Glomerular Filtration Rate 87 >=60 mL/min/1. 73 m?? [facility] Comment: This patient's estimated GFR [...] and symptoms in addition to eGFR. Blood 11/03/2022 2:53 AM EDT 11/03/2022 2:59 AM EDT Narrative Resulting Agency Comment Spec In Lab Cindy [place]adav [place] [address] * IR Thoracentesis Right (11/02/2022 10:18 AM EDT) Anatomical Region Laterality Modality Chest X-Ray Angiograph y Narrative 11/03/2022 3:27 PM EDT Interventional Radiology Procedure Note Procedure: Ultrasound-guided thoracentesis Indication for Procedure: Right pleural fluid, aortic stenosis, thymic cancer Procedure Summary: 1.) Limited thoracic ultrasound 2.) Ultrasound-guided thoracentesis Pre-procedure: Initial thoracic ultrasound was performed. A safe window for thoracentesis was identified in the right posterior chest. Informed consent for the procedure including risks, benefits and alternatives was obtained. Active time-out was performed prior to the procedure in which all vinson aspects were confirmed. The site was prepared and draped. Maximal sterile barrier technique was used throughout the procedure. Method of Sedation: None. ?? Technique: A small wheal was made in the skin with 1% lidocaine. Under real-time ultrasound guidance, a tract down to the pleural space was also anesthestized. A small incision was made in the skin with a #11 scalpel. An 18 gauge needle was advanced under ultrasound guidance into the pleural space with return of simple pleural fluild. The needle was removed over an 0.035 inch guide wire. A 6.3 drainage catheter was advanced into the pleural space then the wire was removed. ??Catheter position was confirmed with ultrasound. 1000 mL serosanguinous fluid drained. The catheter was removed and sterile dressing applied. Medications: Lidocaine 1% <10 cc subcutaneous Estimated blood loss: 1 mL Complications: ??No immediate Specimens: Pleural fluid sample sent for the requested labs. Impression: 1. ?Large volume pleural fluid by ultrasound. 2. ? Ultrasound-guided right thoracentesis with drainage of 1000 mL serosanguinous fluid. Service provider: Sydney Felix PA-C Attending of record: John Durand MD 11/02/2022 Douglas Escobedo MD IMG IR ORDERABLES * Iron Stain, Body Fluid (11/02/2022 10:14 AM EDT) Iron Stain BF Type Pleural, Right [facility] Body Fluid Iron Stain, Fld See Comment [facility] Comment:Pleural, Right fluid positive for hemosiderin. Pleural, Right Other / Unknown 11/02/2022 10:14 AM EDT 11/02/2022 10:34 AM EDT Narrative Resulting Agency Comment Spec In Lab Daniel Green MD HEMATOLOGY ORDERABLE S Performing Organization Address [facility] Co de Phone Number [facility] [place] [address] * Lactate Dehydrogenase Body Fluid Pleural, Right (11/02/2022 10:14 AM EDT) Lactate Dehydrogenase, Fluid 181 unit/L [facility] Comment: Reference intervals are unavailable for this test in body fluids. Comparison of this result with the concentration in blood, serum, or plasma is recommended. This test has not been cleared by the [place] FDA. Performance characteristics of this test for the analysis of body fluids were determined by [facility] in accordance with CLIA requirements. This laboratory is qualified under CLIA to perform high-complexity testing. LDH, Fld Type Pleural, Right [facility] Pleural, Right 11/02/2022 10 :14 AM EDT 11/02/2022 10:34 AM EDT Narrative Resulting Agency Comment Spec In Lab Douglas Escobedo MD BODY FLUIDS AND STOO LS ORDERABLES Performing Organization Address [facility] de Phone Number [facility] [place] [address] * (ABNORMAL) Cell Count Body Fluid Pleural, Right (11/02/2022 10:14 AM EDT) Body Fluid Source Pleural, Right [facility] Color, Fld Yellow [facility] Appearance, Fld Slightly Hazy [facility] WBC Count, Fld 706(H) <=499 /mcl [facility] Comment: All body fluid results should always be interpreted in light of the total clinical presentation of the patient, including clinical history, data from additional tests and other appropriate information. Polymorphonuclear cells BF % 41 % [facility] Comment: Polymorphonuclear cell percent and absolute values may contain Neutrophils, Eosinophils, and Basophils. Body fluid smear will be scanned manually for concordance. Mononuclear cells BF % 59 % [facility] Comment: Hemosiderin suspected-to be confirmed by iron stain. Many RBC phagocytosis present Rare WBC phagocytosis present Mononuclear cell percent and absolute values may contain Lymphocytes and Monocytes. Body fluid smear will be scanned manually for concordance. Polymorphonuclear cells BF ABS 290 /[facility] Comment: Polymorphonuclear cell percent and absolute values may contain Neutrophils, Eosinophils, and Basophils. Body fluid smear will be scanned manually for concordance. Mononuclear cells BF ABS 416 /[facility] Comment: Mononuclear cell percent and absolute values may contain Lymphocytes and Monocytes. Body fluid smear will be scanned manually for concordance. Pleural, Right 11/02/2022 10 :14 AM EDT 11/02/2022 10:34 AM EDT Narrative Resulting Agency Comment Spec In Lab Douglas Escobedo MD BODY FLUIDS AND STOO LS ORDERABLES Performing Organization Address [facility] Co de Phone Number [facility] [place] [address] * Protein Level Body Fluid Pleural, Right (11/02/2022 10:14 AM EDT) Protein, Fluid 3.4 g/dL [facility] Comment: Reference intervals are unavailable for this test in body fluids. Comparison of this result with the concentration in blood, serum, or plasma is recommended. This test has not been cleared by the [place] FDA. Performance characteristics of this test for the analysis of body fluids were determined by [facility] in accordance with CLIA requirements. This laboratory is qualified under CLIA to perform high-complexity testing. Prot, Fld Type Pleural, Right [facility] Pleural, Right 11/02/2022 10 :14 AM EDT 11/02/2022 10:34 AM EDT Narrative Resulting Agency Comment Spec In Lab Douglas Escobedo MD BODY FLUIDS AND STOO LS ORDERABLES Performing Organization Address [facility] Co de Phone Number [facility] [place] [address] * Protein, total (11/02/2022 4:10 AM EDT) Pathologist [facility] Protein, Total 6.7 6.1 - 8.0 g/dL [facility] Blood Venous Draw / Unknown 11/02/2022 4:10 AM EDT 11/02/2022 4:22 AM EDT Narrative Resulting Agency Comment Spec In Lab Daniel Green MD CHEMISTRY ORDERABLES Performing Organization Address [facility] Co de Phone Number [facility] [place] [address] * (ABNORMAL) Lactate Dehydrogenase (11/02/2022 4:10 AM EDT) [facility] Lactate Dehydrogenase 289(H) 110 - 220 unit/L [facility] Blood Venous Draw / Unknown 11/02/2022 4:10 AM EDT 11/02/2022 4:22 AM EDT Narrative Resulting Agency Comment Spec In Lab Daniel Green MD CHEMISTRY ORDERABLES Performing Organization Address [facility] Co de Phone Number [facility] [address] * Scan, Peripheral Blood (11/02/2022 4:10 AM EDT) Pathologist [facility] Plat estimate Decreased [facility] RBC Morphology Abnormal [facility] Macrocyte 1-5 /HPF [facility] Hypochromia Slight [facility] Blood 11/02/2022 4:10 AM EDT 11/02/2022 4:20 AM EDT Narrative Resulting Agency Comment Spec In Lab Kyrie Douglas MD HEMATOLOGY ORDERABLE S Performing Organization Address [facility] Co de Phone Number [facility] [place] [address] * (ABNORMAL) Differential, Automated (11/02/2022 4:10 AM EDT) Neutrophil % 60.3 % [facility] Neutrophil Absolute 4.40 1.70 - 6.10 x10(3)/mc L [facility] Lymph % 5.7 % [facility] Lymphocytes Abs 0.4(L) 0.9 - 3.2 x10(3)/mc L [facility] Monocyte % 25.2 % [facility] Monocyte Abs 1.8(H) 0.3 - 0.9 x10(3)/mc L [facility] Eos % 0.4 % [facility] Eosinophils Abs 0.0 0.0 - 0.4 x10(3)/ L [facility] Basophil % 0.1 % [facility] Baso Absolute 0.0 0.0 - 0.1 x10(3)/mc L [facility] Immature Gran % 8.30 % [facility] Comment: Immature granulocytes(IG's)percentage and absolute count will include metamyelocytes, myelocytes, and promyelocytes. Blood smears from CBCs yielding IG's will be scanned manually for concordance. If this scan disagrees with the automated IG or if promyelocytes are noted, a manual differential will be performed. Immature Gran Absolute 0.61(H) 0.00 - 0.04 x10(3)/ L [facility] Blood 11/02/2022 4:10 AM EDT 11/02/2022 4:20 AM EDT Narrative Resulting Agency Comment Spec In Lab Kyrie Douglas MD HEMATOLOGY ORDERABLE S [facility] [place] [address] * (ABNORMAL) Hemogram (11/02/2022 4:10 AM EDT) White Blood Cell 7.3 4.0 - 9.5 x10(3)/mc L [facility] Red Blood Cell 2.36(L) 4.00 - 5.21 x10(6)/mc L [facility] Hemoglobin 7.1(L) 11.7 - 15.5 g/dL [facility] Hematocrit 23.8(L) 35.7 - 45.8 % [facility] Mean Cell Volume 100.8(H) 82.6 - 94.4 fL [facility] Mean Cell Hemoglobin 30.1 27.1 - 32.0 pg [facility] Mean Cell Hemoglobin Concentration 29.8(L) 31.7 - 35.0 g/dL [facility] Platelet 132(L) 145 - 357 x10(3)/mc L [facility] RDW Standard Deviation 57.0(H) 37.0 - 46.0 fL [facility] RDW coefficient of variation 15.8(H) 11.5 - 14.1 % [facility] Mean Platelet Volume 10.7 7.6 - 12.9 fL [facility] LABORATORY NRBC% auto 0.3 % [facility] NRBC Absolute 0.020(H) 0.000 - 0.000 x10(3)/mc L [facility] Blood 11/02/2022 4:10 AM EDT 11/02/2022 4:20 AM EDT Narrative Resulting Agency Comment Spec In Lab Kyrie Douglas MD HEMATOLOGY ORDERABLE S Performing Organization Address [facility] Co de Phone Number [facility] [place] [address] * Magnesium (11/02/2022 4:10 AM EDT) Magnesium 0.69 0.69 - 1.07 mmol/L [facility] Blood 11/02/2022 4:10 AM EDT 11/02/2022 4:20 AM EDT Narrative Resulting Agency Comment Spec In Lab Cindy Yadav MD CHEMISTRY ORDERABLES Performing Organization Address [facility] Co de Phone Number [facility] [place] [address] * (ABNORMAL) Basic Metabolic Panel (non-fasting) (11/02/2022 4:10 AM EDT) Glucose 111 65 - 199 mg/dL [facility] Comment:Diabetes: >=200 mg/d L plus symptoms Blood Urea Nitrogen 20(H) 8 - 18 mg/dL [facility] Creatinine 0.83 0.70 - 1.20 mg/dL [facility] Sodium 140 135 - 145 mmol/L [facility] Potassium 3.5 3.5 - 5.0 mmol/L [facility] Comment: Please note: ??Patients with WBC >100,000 may have falsely elevated Potassium levels. ??For accurate Potassium quantification in these patients send serum separator tube (gold top) for subsequent determinations. ??Contact the Clinical Chemistry Laboratory if there are any questions. Chloride 91(L) 98 - 107 mmol/L [facility] Carbon Dioxide 48(H) 22 - 31 mmol/L [facility] Anion Gap 1(L) 5 - 15 mmol/L [facility] Calcium 8.3(L) 8.5 - 10.5 mg/dL [facility] Est Glomerular Filtration Rate 78 >=60 mL/min/1. 73 m?? [facility] Comment: This patient's estimated GFR [...] and symptoms in addition to eGFR. Blood 11/02/2022 4:10 AM EDT 11/02/2022 4:20 AM EDT Narrative Resulting Agency Comment Spec In Lab Cindy Leif QUINTANILLA CHEMISTRY ORDERABLES Performing Organization Address City/State/[facility] Co de Phone Number [facility] [address] * XR Chest PA & Lateral (Generic) (11/01/2022 12:05 PM EDT) Anatomical Region Laterality Modality Chest N/A Digital Radiogra phy Impressions 11/01/2022 1:36 PM EDT No decrease in size of right pleural effusion with size intrafissural components. Stable smaller left pleural effusion. No pneumothorax. Thank you for letting us participate in the care of this patient. ??If you are a health care provider and have any questions regarding this report, please contact the number below. ??For patients who have questions please contact the health foster care worker that requested your imaging first. ? Electronically signed by: Saul Plunkett MD, [facility] ??([phone]), at 11/01/2022 1:36 PM Narrative 11/01/2022 1:36 PM EDT EXAMINATION: XR CHEST PA AND LATERAL (GENERIC) CLINICAL HISTORY: Evaluate pleural effusions after thoracentesis and diuresis TECHNIQUE: PA and lateral views of the chest COMPARISON: 10/26/2022 FINDINGS: Support devices: Right chest port catheter terminates in the SVC The cardiomediastinal silhouette is stable. Mild decrease in size of right pleural effusion which is intrafissural components. Stable smaller left pleural effusion. No pneumothorax. Procedure Note Saul Plunkett MD - 11/01/2022 EXAMINATION: XR CHEST PA AND LATERAL (GENERIC) CLINICAL HISTORY: Evaluate pleural effusions after thoracentesis anddiuresis TECHNIQUE: PA and lateral views of the chest COMPARISON: 10/26/2022 FINDINGS: Support devices: Right chest port catheter terminates in the SVC The cardiomediastinal silhouette is stable. Mild decrease in size ofright pleural effusion which is intrafissural components. Stable smaller leftpleural effusion. No pneumothorax. IMPRESSION No decrease in size of right pleural effusion with size intrafissural components. Stable smaller left pleural effusion. No pneumothorax. Thank you for letting us participate in the care of this patient. If youare a health care provider and have any questions regarding this report,please contact the number below. For patients who have questions please contactthe health foster care worker that requested your imaging first. Electronically signed by: Saul Plunkett MD, [facility]([phone]), at 11/01/2022 1:36 PM Douglas Escobedo MD IMG DX ORDERABLES * (ABNORMAL) Differential, Automated (11/01/2022 4:20 AM EDT) Neutrophil % 63.7 % [facility] Neutrophil Absolute 4.50 1.70 - 6.10 x10(3)/mc L [facility] Lymph % 6.2 % [facility] Lymphocytes Abs 0.4(L) 0.9 - 3.2 x10(3)/ L [facility] Monocyte % 18.4 % [facility] Monocyte Abs 1.3(H) 0.3 - 0.9 x10(3)/mc L [facility] Eos % 0.1 % [facility] Eosinophils Abs 0.0 0.0 - 0.4 x10(3)/[facility] Basophil % 0.3 % [facility] Baso Absolute 0.0 0.0 - 0.1 x10(3)/ L [facility] Immature Gran % 11.30 % [facility] Comment: Immature granulocytes(IG's)percentage and absolute count will include metamyelocytes, myelocytes, and promyelocytes. Blood smears from CBCs yielding IG's will be scanned manually for concordance. If this scan disagrees with the automated IG or if promyelocytes are noted, a manual differential will be performed. Immature Gran Absolute 0.80(H) 0.00 - 0.04 x10(3)/ L [facility] Blood 11/01/2022 4:20 AM EDT 11/01/2022 4:27 AM EDT Narrative Resulting Agency Comment Spec In Lab Kyrie Douglas MD HEMATOLOGY ORDERABLE S [facility] [address] * (ABNORMAL) Hemogram (11/01/2022 4:20 AM EDT) White Blood Cell 7.1 4.0 - 9.5 x10(3)/ L [facility] Red Blood Cell 2.49(L) 4.00 - 5.21 x10(6)/mc L [facility] Hemoglobin 7.5(L) 11.7 - 15.5 g/dL [facility] Hematocrit 25.0(L) 35.7 - 45.8 % [facility] Mean Cell Volume 100.4(H) 82.6 - 94.4 fL [facility] Mean Cell Hemoglobin 30.1 27.1 - 32.0 pg [facility] Mean Cell Hemoglobin Concentration 30.0(L) 31.7 - 35.0 g/dL [facility] Platelet 131(L) 145 - 357 x10(3)/mc L [facility] RDW Standard Deviation 57.3(H) 37.0 - 46.0 fL [facility] RDW coefficient of variation 15.6(H) 11.5 - 14.1 % [facility] Mean Platelet Volume 10.6 7.6 - 12.9 fL [facility] NRBC% auto 0.8 % [facility] NRBC Absolute 0.060(H) 0.000 - 0.000 x10(3)/mc L [facility] Blood 11/01/2022 4:20 AM EDT 11/01/2022 4:27 AM EDT Narrative Resulting Agency Comment Spec In Lab Kyrie Douglas MD HEMATOLOGY ORDERABLE S Performing Organization Address City/[facility] Co de Phone Number [facility] [address] * Magnesium (11/01/2022 4:20 AM EDT) Magnesium 0.69 0.69 - 1.07 mmol/L [facility] Blood 11/01/2022 4:20 AM EDT 11/01/2022 4:27 AM EDT Narrative Resulting Agency Comment Spec In Lab Cindy Yadav MD CHEMISTRY ORDERABLES Performing Organization Address [facility] Co de Phone Number [facility] [place] [address] * (ABNORMAL) Basic Metabolic Panel (non-fasting) (11/01/2022 4:20 AM EDT) Glucose 113 65 - 199 mg/dL [facility] Comment:Diabetes: >=200 mg/d L plus symptoms Blood Urea Nitrogen 27(H) 8 - 18 mg/dL [facility] Creatinine 0.83 0.70 - 1.20 mg/dL [facility] Sodium 143 135 - 145 mmol/L [facility] Potassium 3.5 3.5 - 5.0 mmol/L [facility] Comment: Please note: ??Patients with WBC >100,000 may have falsely elevated Potassium levels. ??For accurate Potassium quantification in these patients send serum separator tube (gold top) for subsequent determinations. ??Contact the Clinical Chemistry Laboratory if there are any questions. Chloride 93(L) 98 - 107 mmol/L [facility] Carbon Dioxide 44(H) 22 - 31 mmol/L [facility] Anion Gap 6 5 - 15 mmol/L [facility] Calcium 8.4(L) 8.5 - 10.5 mg/dL [facility] Est Glomerular Filtration Rate 78 >=60 mL/min/1. 73 m?? [facility] Comment: This patient's estimated GFR [...] and symptoms in addition to eGFR. Blood 11/01/2022 4:20 AM EDT 11/01/2022 4:27 AM EDT Narrative Resulting Agency Comment Spec In Lab Cindy Yadav MD CHEMISTRY ORDERABLES [facility] [address] * (ABNORMAL) Basic Metabolic Panel (non-fasting) (10/31/2022 2:23 PM EDT) Glucose 112 65 - 199 mg/dL [facility] Comment:Diabetes: >=200 mg/d L plus symptoms Blood Urea Nitrogen 30(H) 8 - 18 mg/dL [facility] Creatinine 0.86 0.70 - 1.20 mg/dL [facility] Sodium 143 135 - 145 mmol/L [facility] Potassium 3.4(L) 3.5 - 5.0 mmol/L [facility] Comment: Please note: ??Patients with WBC >100,000 may have falsely elevated Potassium levels. ??For accurate Potassium quantification in these patients send serum separator tube (gold top) for subsequent determinations. ??Contact the Clinical Chemistry Laboratory if there are any questions. Chloride 95(L) 98 - 107 mmol/L [facility] Carbon Dioxide 43(H) 22 - 31 mmol/L [facility] Anion Gap 5 5 - 15 mmol/L [facility] Calcium 8.3(L) 8.5 - 10.5 mg/dL [facility] Est Glomerular Filtration Rate 75 >=60 mL/min/1. 73 m?? [facility] Comment: This patient's estimated GFR [...] and symptoms in addition to eGFR. Blood 10/31/2022 2:23 PM EDT 10/31/2022 2:30 PM EDT Narrative Resulting Agency Comment Spec In Lab Douglas Escobedo MD CHEMISTRY ORDERABLES [facility] [place] [address] * (ABNORMAL) Differential, Automated (10/31/2022 1:45 AM EDT) Neutrophil % 63.6 % [facility] Neutrophil Absolute 4.45 1.70 - 6.10 x10(3)/mc L [facility] Lymph % 8.4 % [facility] Lymphocytes Abs 0.6(L) 0.9 - 3.2 x10(3)/mc L [facility] Monocyte % 15.6 % [facility] Monocyte Abs 1.1(H) 0.3 - 0.9 x10(3)/ L [facility] Eos % 0.1 % [facility] Eosinophils Abs 0.0 0.0 - 0.4 x10(3)/ L [facility] Basophil % 0.4 % [facility] Baso Absolute 0.0 0.0 - 0.1 x10(3)/mc L [facility] Immature Gran % 11.90 % [facility] Comment: Immature granulocytes(IG's)percentage and absolute count will include metamyelocytes, myelocytes, and promyelocytes. Blood smears from CBCs yielding IG's will be scanned manually for concordance. If this scan disagrees with the automated IG or if promyelocytes are noted, a manual differential will be performed. Immature Gran Absolute 0.83(H) 0.00 - 0.04 x10(3)/ L [facility] Blood 10/31/2022 1:45 AM EDT 10/31/2022 1:56 AM EDT Narrative Resulting Agency Comment Spec In Lab Kyrie Douglas MD HEMATOLOGY ORDERABLE S [facility] [address] * (ABNORMAL) Hemogram (10/31/2022 1:45 AM EDT) White Blood Cell 7.0 4.0 - 9.5 x10(3)/mc L [facility] Red Blood Cell 2.52(L) 4.00 - 5.21 x10(6)/mc L [facility] Hemoglobin 7.5(L) 11.7 - 15.5 g/dL [facility] Hematocrit 24.7(L) 35.7 - 45.8 % [facility] Mean Cell Volume 98.0(H) 82.6 - 94.4 fL [facility] Mean Cell Hemoglobin 29.8 27.1 - 32.0 pg [facility] Mean Cell Hemoglobin Concentration 30.4(L) 31.7 - 35.0 g/dL [facility] Platelet 126(L) 145 - 357 x10(3)/mc L [facility] RDW Standard Deviation 56.6(H) 37.0 - 46.0 fL [facility] RDW coefficient of variation 15.9(H) 11.5 - 14.1 % [facility] Mean Platelet Volume 10.8 7.6 - 12.9 fL [facility] NRBC% auto 1.1 % [facility] NRBC Absolute 0.080(H) 0.000 - 0.000 x10(3)/mc L [facility] Blood 10/31/2022 1:45 AM EDT 10/31/2022 1:56 AM EDT Narrative Resulting Agency Comment Spec In Lab Kyrie Douglas MD HEMATOLOGY ORDERABLE S Performing Organization Address [facility] Co de Phone Number [facility] [place] [address] * Magnesium (10/31/2022 1:45 AM EDT) Magnesium 0.77 0.69 - 1.07 mmol/L [facility] Blood 10/31/2022 1:45 AM EDT 10/31/2022 1:56 AM EDT Narrative Resulting Agency Comment Spec In Lab Cindy Yadav MD CHEMISTRY ORDERABLES Performing Organization Address [facility] Co de Phone Number [facility] [place] [address] * (ABNORMAL) Basic Metabolic Panel (non-fasting) (10/31/2022 1:45 AM EDT) Glucose 112 65 - 199 mg/dL [facility] Comment:Diabetes: >=200 mg/d L plus symptoms Blood Urea Nitrogen 36(H) 8 - 18 mg/dL [facility] Creatinine 0.88 0.70 - 1.20 mg/dL [facility] Sodium 144 135 - 145 mmol/L [facility] Potassium 3.0(Criti sabiha) 3.5 - 5.0 mmol/L [facility] Comment: Called by: MIRANDA, Read back by: Apurva Pina, Date/Time:10/31/22 02:29. Please note: ??Patients with WBC >100,000 may have falsely elevated Potassium levels. ??For accurate Potassium quantification in these patients send serum separator tube (gold top) for subsequent determinations. ??Contact the Clinical Chemistry Laboratory if there are any questions. Chloride 95(L) 98 - 107 mmol/L [facility] Carbon Dioxide 44(H) 22 - 31 mmol/L [facility] Anion Gap 5 5 - 15 mmol/L [facility] Calcium 8.3(L) 8.5 - 10.5 mg/dL [facility] Est Glomerular Filtration Rate 73 >=60 mL/min/1. 73 m?? [facility] Comment: This patient's estimated GFR [...] and symptoms in addition to eGFR. Blood 10/31/2022 1:45 AM EDT 10/31/2022 1:56 AM EDT Narrative Resulting Agency Comment Spec In Lab Cindy Yadav MD CHEMISTRY ORDERABLES [facility] [address] * (ABNORMAL) Urinalysis Microscopic Exam (10/30/2022 12:15 PM EDT) RBC, Urine 8(H) 0 - 4 /HPF [facility] WBC, Urine <1 0 - 5 /HPF [facility] Squamous Epithelial Cells Raw Data, Urine <1 <=4 /HPF [facility] Clean Catch Urine 10/30/2022 12:15 PM EDT 10/30/2022 12:39 PM EDT Narrative Resulting Agency Comment Spec In Lab Dennise Peres MD URINE ORDERABLES Performing Organization Address [facility] Co de Phone Number [facility] [address] * (ABNORMAL) Urinalysis with reflex Culture (10/30/2022 12:15 PM EDT) Glucose, Urine Dipstick Negative Negative mg/dL [facility] Protein, Urine Dipstick Negative Negative mg/dL [facility] Bilirubin, Urine Dipstick Negative Negative mg/dL [facility] Comment: Clinical correlation required for positive Urine Bilirubin results as false positive may occur with some drugs and drug related products. If a false positive is suspected a serum total bilirubin should be considered if clinically indicated. Urobilinogen, Urine Dipstick Normal Normal mg/dL [facility] pH, Urn (dipstick) 7.0 5.0 - 8.0 [facility] Blood, Urine Dipstick Moderate(A) Negative mg/dL [facility] Ketone, Urine Dipstick Negative Negative mg/dL [facility] Nitrite, Urine Dipstick Negative Negative [facility] Leukocytes, Urine Dipstick Negative Negative mcL [facility] Appearance, Urine Dipstick Clear Clear [facility] Specific [place] Urine Automated 1.008 1.005 - 1.030 [facility] Color, Urine Dipstick Yellow Yellow [facility] Reflex to Culture No [facility] Clean Catch Urine 10/30/2022 12:15 PM EDT 10/30/2022 12:39 PM EDT Narrative Resulting Agency Comment Spec In Lab Douglas Escobedo MD URINE ORDERABLES Performing Organization Address [facility]/ZIP Co de Phone Number [facility] [address] * (ABNORMAL) Differential, Automated (10/30/2022 1:16 AM EDT) Neutrophil % 67.3 % [facility] Neutrophil Absolute 4.43 1.70 - 6.10 x10(3)/mc L [facility] Lymph % 4.6 % [facility] Lymphocytes Abs 0.3(L) 0.9 - 3.2 x10(3)/mc L [facility] Monocyte % 15.2 % [facility] Monocyte Abs 1.0(H) 0.3 - 0.9 x10(3)/ L [facility] Eos % 0.0 % [facility] Eosinophils Abs 0.0 0.0 - 0.4 x10(3)/ L [facility] Basophil % 0.3 % [facility] Baso Absolute 0.0 0.0 - 0.1 x10(3)/mc L [facility] Immature Gran % 12.60 % [facility] Comment: Immature granulocytes(IG's)percentage and absolute count will include metamyelocytes, myelocytes, and promyelocytes. Blood smears from CBCs yielding IG's will be scanned manually for concordance. If this scan disagrees with the automated IG or if promyelocytes are noted, a manual differential will be performed. Immature Gran Absolute 0.83(H) 0.00 - 0.04 x10(3)/ L [facility] Blood 10/30/2022 1:16 AM EDT 10/30/2022 1:36 AM EDT Narrative Resulting Agency Comment Spec In Lab Kyrie Douglas MD HEMATOLOGY ORDERABLE S [facility] [place] [address] * (ABNORMAL) Hemogram (10/30/2022 1:16 AM EDT) White Blood Cell 6.6 4.0 - 9.5 x10(3)/mc L [facility] Red Blood Cell 2.56(L) 4.00 - 5.21 x10(6)/mc L [facility] Hemoglobin 7.5(L) 11.7 - 15.5 g/dL [facility] Hematocrit 24.6(L) 35.7 - 45.8 % [facility] Mean Cell Volume 96.1(H) 82.6 - 94.4 fL [facility] Mean Cell Hemoglobin 29.3 27.1 - 32.0 pg [facility] Mean Cell Hemoglobin Concentration 30.5(L) 31.7 - 35.0 g/dL [facility] Platelet 101(L) 145 - 357 x10(3)/mc L [facility] RDW Standard Deviation 54.6(H) 37.0 - 46.0 fL [facility] RDW coefficient of variation 15.7(H) 11.5 - 14.1 % [facility] Mean Platelet Volume 11.2 7.6 - 12.9 fL [facility] NRBC% auto 0.6 % [facility] NRBC Absolute 0.040(H) 0.000 - 0.000 x10(3)/mc L [facility] Blood 10/30/2022 1:16 AM EDT 10/30/2022 1:36 AM EDT Narrative Resulting Agency Comment Spec In Lab Kyrie Douglas MD HEMATOLOGY ORDERABLE S Performing Organization Address [facility] Co de Phone Number [facility] [place] [address] * Magnesium (10/30/2022 1:16 AM EDT) Magnesium 0.72 0.69 - 1.07 mmol/L [facility] Blood 10/30/2022 1:16 AM EDT 10/30/2022 1:36 AM EDT Narrative Resulting Agency Comment Spec In Lab Cindy Yadav MD CHEMISTRY ORDERABLES Performing Organization Address [facility] Co de Phone Number [facility] [place] [address] * (ABNORMAL) Basic Metabolic Panel (non-fasting) (10/30/2022 1:16 AM EDT) Glucose 171 65 - 199 mg/dL [facility] Comment:Diabetes: >=200 mg/d L plus symptoms Blood Urea Nitrogen 50(H) 8 - 18 mg/dL [facility] Creatinine 0.94 0.70 - 1.20 mg/dL [facility] Sodium 142 135 - 145 mmol/L [facility] Potassium 3.3(L) 3.5 - 5.0 mmol/L [facility] Comment: Please note: ??Patients with WBC >100,000 may have falsely elevated Potassium levels. ??For accurate Potassium quantification in these patients send serum separator tube (gold top) for subsequent determinations. ??Contact the Clinical Chemistry Laboratory if there are any questions. Chloride 95(L) 98 - 107 mmol/L [facility] Carbon Dioxide 40(H) 22 - 31 mmol/L [facility] Anion Gap 7 5 - 15 mmol/L [facility] Calcium 8.3(L) 8.5 - 10.5 mg/dL [facility] Est Glomerular Filtration Rate 67 >=60 mL/min/1. 73 m?? [facility] Comment: This patient's estimated GFR [...] and symptoms in addition to eGFR. Blood 10/30/2022 1:16 AM EDT 10/30/2022 1:36 AM EDT Narrative Resulting Agency Comment Spec In Lab Cindy Yadav MD CHEMISTRY ORDERABLES Performing Organization Address City/[facility]/ZIP Co de Phone Number [facility] [place] [address] * Type and Screen Validity (10/29/2022 1:06 AM EDT) [facility] T&S only valid at [facility] Comment:This Type and Screen result is only valid at the [facility] Blood 10/29/2022 1:06 AM EDT 10/29/2022 1:06 AM EDT Narrative Resulting Agency Comment Spec In Lab Dennise Peres MD BLOOD BANK LAB ORDER DOM Performing Organization Address City/[facility]/ZIP Co de Phone Number [facility] [place] [address] * [facility] Recheck Status (10/29/2022 1:06 AM EDT) [facility] Type Recheck Completed [facility] Blood 10/29/2022 1:06 AM EDT 10/29/2022 1:06 AM EDT Narrative Resulting Agency Comment Spec In Lab Dennise Peres MD BLOOD BANK LAB ORDER DOM [facility] [address] * Antibody screen (10/29/2022 1:06 AM EDT) Ab Screen Interp Negative [facility] Expires at [id number] on: 11/01/2022 [facility] Blood 10/29/2022 1:06 AM EDT 10/29/2022 1:06 AM EDT Narrative Resulting Agency Comment Spec In Lab Dennise Peres MD BLOOD BANK LAB ORDER DOM [facility] [address] * ABO/Rh Typing (10/29/2022 1:06 AM EDT) ABORH Type A Pos [facility] Blood 10/29/2022 1:06 AM EDT 10/29/2022 1:06 AM EDT Narrative Resulting Agency Comment Spec In Lab Dennise Peres MD BLOOD BANK LAB ORDER DOM [facility] [address] * (ABNORMAL) Lactate Dehydrogenase (10/29/2022 12:40 AM EDT) Lactate Dehydrogenase 314(H) 110 - 220 unit/L [facility] Blood Venous Draw / Unknown 10/29/2022 12:40 AM EDT 10/29/2022 1:11 AM EDT Narrative Resulting Agency Comment Spec In Lab Dennise Peres MD CHEMISTRY ORDERABLES [facility] [address] * Protein, total (10/29/2022 12:40 AM EDT) [facility] Protein, Total 7.6 6.1 - 8.0 g/dL [facility] Blood Venous Draw / Unknown 10/29/2022 12:40 AM EDT 10/29/2022 1:11 AM EDT Narrative Resulting Agency Comment Spec In Lab Dennise Peres MD CHEMISTRY ORDERABLES Performing Organization Address City/[facility] Co de Phone Number [facility] [place] [address] * (ABNORMAL) Differential, Automated (10/29/2022 12:40 AM EDT) [facility] Neutrophil % 74.2 % [facility] Neutrophil Absolute 3.10 1.70 - 6.10 x10(3)/mc L [facility] Lymph % 5.3 % [facility] Lymphocytes Abs 0.2(L) 0.9 - 3.2 x10(3)/mc L [facility] Monocyte % 10.0 % [facility] Monocyte Abs 0.4 0.3 - 0.9 x10(3)/mc L [facility] Eos % 0.0 % [facility] Eosinophils Abs 0.0 0.0 - 0.4 x10(3)/mc L [facility] Basophil % 0.2 % [facility] Baso Absolute 0.0 0.0 - 0.1 x10(3)/mc L [facility] Immature Gran % 10.30 % [facility] Comment: Immature granulocytes(IG's)percentage and absolute count will include metamyelocytes, myelocytes, and promyelocytes. Blood smears from CBCs yielding IG's will be scanned manually for concordance. If this scan disagrees with the automated IG or if promyelocytes are noted, a manual differential will be performed. Immature Gran Absolute 0.43(H) 0.00 - 0.04 x10(3)/mc L [facility] Blood 10/29/2022 12:4 0 AM EDT 10/29/2022 1:04 AM EDT Narrative Resulting Agency Comment Spec In Lab Kyrie Douglas MD HEMATOLOGY ORDERABLE S Performing Organization Address City/[facility]/ZIP Co de Phone Number [facility] [address] * (ABNORMAL) Hemogram (10/29/2022 12:40 AM EDT) White Blood Cell 4.2 4.0 - 9.5 x10(3)/mc L [facility] Red Blood Cell 2.38(L) 4.00 - 5.21 x10(6)/mc L [facility] Hemoglobin 7.2(L) 11.7 - 15.5 g/dL [facility] Hematocrit 22.7(L) 35.7 - 45.8 % [facility] Mean Cell Volume 95.4(H) 82.6 - 94.4 fL [facility] Mean Cell Hemoglobin 30.3 27.1 - 32.0 pg [facility] Mean Cell Hemoglobin Concentration 31.7 31.7 - 35.0 g/dL [facility] Platelet 58(L) 145 - 357 x10(3)/mc L [facility] RDW Standard Deviation 56.2(H) 37.0 - 46.0 fL [facility] RDW coefficient of variation 15.9(H) 11.5 - 14.1 % [facility] Mean Platelet Volume 11.4 7.6 - 12.9 fL [facility] NRBC% auto 0.0 % [facility] NRBC Absolute 0.000 0.000 - 0.000 x10(3)/mc L [facility] Blood 10/29/2022 12:4 0 AM EDT 10/29/2022 1:04 AM EDT Narrative Resulting Agency Comment Spec In Lab Kyrie Douglas MD HEMATOLOGY ORDERABLE S Performing Organization Address City/[facility]/ZIP Co de Phone Number [facility] [address] * Magnesium (10/29/2022 12:40 AM EDT) Magnesium 0.83 0.69 - 1.07 mmol/L [facility] Blood 10/29/2022 12:4 0 AM EDT 10/29/2022 1:04 AM EDT Narrative Resulting Agency Comment Spec In Lab Cindy Yadav MD CHEMISTRY ORDERABLES Performing Organization Address City/State/[facility] Co de Phone Number [facility] [place] [address] * (ABNORMAL) Basic Metabolic Panel (non-fasting) (10/29/2022 12:40 AM EDT) Glucose 173 65 - 199 mg/dL [facility] Comment:Diabetes: >=200 mg/d L plus symptoms Blood Urea Nitrogen 57(H) 8 - 18 mg/dL [facility] Creatinine 1.09 0.70 - 1.20 mg/dL [facility] Sodium 142 135 - 145 mmol/L [facility] Potassium 3.8 3.5 - 5.0 mmol/L [facility] Comment: Please note: ??Patients with WBC >100,000 may have falsely elevated Potassium levels. ??For accurate Potassium quantification in these patients send serum separator tube (gold top) for subsequent determinations. ??Contact the Clinical Chemistry Laboratory if there are any questions. Chloride 97(L) 98 - 107 mmol/L [facility] Carbon Dioxide 35(H) 22 - 31 mmol/L [facility] Anion Gap 10 5 - 15 mmol/L [facility] Calcium 8.5 8.5 - 10.5 mg/dL [facility] Est Glomerular Filtration Rate 56(L) >=60 mL/min/1. 73 m?? [facility] Comment: This patient's estimated GFR [...] and symptoms in addition to eGFR. Blood 10/29/2022 12:4 0 AM EDT 10/29/2022 1:04 AM EDT Narrative Resulting Agency Comment Spec In Lab Cindy Leif QUINTANILLA CHEMISTRY ORDERABLES [facility] [place] [address] * Fluid Review Report (10/28/2022 5:20 PM EDT) Fluid Review Report [id number] ? Location: L1WD; 0110; A The signing pathologist has (i) examined the relevant preparation(s) for the specimen(s) and (ii) rendered or confirmed the diagnosis(es). . ? Fluid Review DIAGNOSIS RIGHT PLEURAL FLUID: No malignant cells are seen on the cytocentrifuge preparation. Electronically signed by: ?Sulma QUINTANILLA, Anthony Verified: ??10/29/2022 18:49 ??Hematopathologist Performed at: ??-[facility] [place] Dept. of Pathology, [place] [address] Plaque Maker: Justyna Terry MD, FCAP, ??CLIA Certificate: [id number] DISCUSSION Scattered mixed inflammatory cells and red blood cells are present, with rare mesothelial cells. ??This study is optimal for evaluation of abnormal lymphocytic infiltrates and blasts in fluid specimens. For metastatic nonlymphoid malignancies like carcinomas, subtle involvement, ??especially cases with unknown primary disease, ??the specimens are optimally reviewed by cytology evaluation where further work-up with immunostains can be performed for a more definitive diagnosis. ADDITIONAL STUDIES 10/28/22 15:36 EDT ?? LLS BF Type ??Pleural, Right ?? Leukemia Lymphoma Screen ??* See Comment ?? Spec Type BF Pleural, Right ?? Color BF Muse ?? Appear BF Hazy ?? WBC BF * 195 /mcl (Ref. Range ??- <=499) ?? Polymorphonuclear cells BF ??* 40 % ?? Mononuclear cells BF ??* 60 % ?? Polymorphonuclear cells BF ABS ??* 79 /mcl ?? Mononuclear cell BF ABS ??* 116 /mcl CLINICAL INFORMATION Specimen: ? Pleural Right Clinical Diagnosis: ? Stage IV thymic cancer, recurrent pleural effusion Indication for Study: ?? Stage IV thymic cancer, recurrent pleural effusion, persistent O2 requirement [facility] 10/28/2022 5:20 PM EDT Dennise Peres MD PATHOLOGY/CYTOLOGY O RDERABLES [facility] [place] [address] * IR Thoracentesis Right (10/28/2022 5:03 PM EDT) Anatomical Region Laterality Modality Chest X-Ray Angiograph y Narrative 10/28/2022 5:21 PM EDT IR PROCEDURE NOTE : ?? US-guided right thoracentesis Indication : ??Recurrent right pleural fluid collection, hypoxia Technique: After discussing risks (including infection and hemorrhage), and benefits, patient consented to the procedure. Right plerual fluid collection was localized with US. ??After sterile preparation overlying skin, 7 cc 1% lidocaine SQ was administered for anesthesia, and an 18 ga sheathed needle was advanced under US guidance into the collection. ??Over an .035 inch wire a 6 Fr catheter was placed. Catheter was left to vaccuum bottle drainage. ??Catheter removed and hemostasis obtained. ??Patient tolerated the procedure well. ??There were no immediate complications. Contrast : ??10 cc Omnipaque 350. ?? Fluoro time : ??1 min. ?? EBL : ??0 cc. Findings: ??Moderate right pleural fluid collection, consolidated RLL, 750 cc mike fluid aspirated. (specimen submitted for requested labs) Impression: Technically successful Right thoracentesis. Attending: ??I, Dr. Durand, was present throughout the procedure. Saul Randolph III, MD IMG IR ORD ERABLES * Body Fluid HOLD Pleural, Right (10/28/2022 3:36 PM EDT) HOLD, FLD Sample in lab. [facility] Body Fld 10/28/2022 3:36 PM EDT 10/28/2022 5:02 PM EDT Saul Randolph III, MD BODY FLUID S AND STOOLS ORDERABLES Performing Organization Address [facility] Co de Phone Number [facility] [place] [phone] * Protein Level Body Fluid Pleural, Right (10/28/2022 3:36 PM EDT) Protein, Fluid 3.6 g/dL [facility] Comment: Reference intervals are unavailable for this test in body fluids. Comparison of this result with the concentration in blood, serum, or plasma is recommended. This test has not been cleared by the [place] FDA. Performance characteristics of this test for the analysis of body fluids were determined by [facility] in accordance with CLIA requirements. This laboratory is qualified under CLIA to perform high-complexity testing. Prot, Fld Type Pleural, Right [facility] Pleural, Right 10/28/2022 3: 36 PM EDT 10/28/2022 5:02 PM EDT Narrative Resulting Agency Comment Spec In Lab Saul Randolph III, MD BODY FLUID S AND STOOLS ORDERABLES Performing Organization Address [facility] Co de Phone Number [facility] [address] * Lactate Dehydrogenase Body Fluid Pleural, Right (10/28/2022 3:36 PM EDT) Lactate Dehydrogenase, Fluid 138 unit/L [facility] Comment: Reference intervals are unavailable for this test in body fluids. Comparison of this result with the concentration in blood, serum, or plasma is recommended. This test has not been cleared by the [place] FDA. Performance characteristics of this test for the analysis of body fluids were determined by [facility] in accordance with CLIA requirements. This laboratory is qualified under CLIA to perform high-complexity testing. LDH, Fld Type Pleural, Right [facility] Pleural, Right 10/28/2022 3: 36 PM EDT 10/28/2022 5:02 PM EDT Narrative Resulting Agency Comment Spec In Lab Saul Randolph III, MD BODY FLUID S AND STOOLS ORDERABLES Performing Organization Address City/[facility] Co de Phone Number [facility] [place] [address] * Leukemia Lymphoma Screen Pleural, Right (10/28/2022 3:36 PM EDT) FR BF Type Pleural, Right [facility] Hematology Fluid Review See Comment [facility] Comment:See Fluid Review Rep ort [id number] under Hematopathology Reports. Pleural, Right 10/28/2022 3: 36 PM EDT 10/28/2022 5:02 PM EDT Narrative Resulting Agency Comment Spec In Lab Saul Randolph III, MD BODY FLUID S AND STOOLS ORDERABLES Performing Organization Address [facility] Co de Phone Number [facility] [place] [address] * Cell Count Body Fluid Pleural, Right (10/28/2022 3:36 PM EDT) Body Fluid Source Pleural, Right [facility] Color, Fld Muse [facility] Appearance, Fld Hazy [facility] WBC Count, Fld 195 <=499 /mcl [facility] Comment: All body fluid results should always be interpreted in light of the total clinical presentation of the patient, including clinical history, data from additional tests and other appropriate information. Polymorphonuclear cells BF % 40 % [facility] Comment: Polymorphonuclear cell percent and absolute values may contain Neutrophils, Eosinophils, and Basophils. Body fluid smear will be scanned manually for concordance. Mononuclear cells BF % 60 % [facility] Comment: Mononuclear cell percent and absolute values may contain Lymphocytes and Monocytes. Body fluid smear will be scanned manually for concordance. Polymorphonuclear cells BF ABS 79 /mcl [facility] Comment: Polymorphonuclear cell percent and absolute values may contain Neutrophils, Eosinophils, and Basophils. Body fluid smear will be scanned manually for concordance. Mononuclear cells BF ABS 116 /[facility] Comment: Mononuclear cell percent and absolute values may contain Lymphocytes and Monocytes. Body fluid smear will be scanned manually for concordance. Pleural, Right 10/28/2022 3: 36 PM EDT 10/28/2022 5:02 PM EDT Narrative Resulting Agency Comment Spec In Lab Saul Randolph III, MD BODY FLUID S AND STOOLS ORDERABLES [facility] [place] [address] * (ABNORMAL) Differential, Automated (10/28/2022 4:50 AM EDT) Neutrophil % 75.2 % [facility] Neutrophil Absolute 2.88 1.70 - 6.10 x10(3)/mc L [facility] Lymph % 4.7 % [facility] Lymphocytes Abs 0.2(L) 0.9 - 3.2 x10(3)/mc L [facility] Monocyte % 9.9 % [facility] Monocyte Abs 0.4 0.3 - 0.9 x10(3)/mc L [facility] Eos % 0.0 % [facility] Eosinophils Abs 0.0 0.0 - 0.4 x10(3)/mc L [facility] Basophil % 0.0 % [facility] Baso Absolute 0.0 0.0 - 0.1 x10(3)/mc L [facility] Immature Gran % 10.20 % [facility] Comment: Immature granulocytes(IG's)percentage and absolute count will include metamyelocytes, myelocytes, and promyelocytes. Blood smears from CBCs yielding IG's will be scanned manually for concordance. If this scan disagrees with the automated IG or if promyelocytes are noted, a manual differential will be performed. Immature Gran Absolute 0.39(H) 0.00 - 0.04 x10(3)/mc L [facility] Blood 10/28/2022 4:50 AM EDT 10/28/2022 4:56 AM EDT Narrative Resulting Agency Comment Spec In Lab Kyrie Douglas MD HEMATOLOGY ORDERABLE S [facility] [address] * (ABNORMAL) Hemogram (10/28/2022 4:50 AM EDT) White Blood Cell 3.8(L) 4.0 - 9.5 x10(3)/mc L [facility] Red Blood Cell 2.34(L) 4.00 - 5.21 x10(6)/mc L [facility] Hemoglobin 7.0(L) 11.7 - 15.5 g/dL [facility] Hematocrit 22.5(L) 35.7 - 45.8 % [facility] Mean Cell Volume 96.2(H) 82.6 - 94.4 fL [facility] Mean Cell Hemoglobin 29.9 27.1 - 32.0 pg [facility] Mean Cell Hemoglobin Concentration 31.1(L) 31.7 - 35.0 g/dL [facility] Platelet 43(L) 145 - 357 x10(3)/mc L [facility] RDW Standard Deviation 56.7(H) 37.0 - 46.0 fL [facility] RDW coefficient of variation 16.0(H) 11.5 - 14.1 % [facility] Mean Platelet Volume 12.0 7.6 - 12.9 fL [facility] NRBC% auto 0.0 % [facility] NRBC Absolute 0.000 0.000 - 0.000 x10(3)/mc L [facility] Blood 10/28/2022 4:50 AM EDT 10/28/2022 4:56 AM EDT Narrative Resulting Agency Comment Spec In Lab Kyrie Douglas MD HEMATOLOGY ORDERABLE S [facility] [address] * Magnesium (10/28/2022 4:50 AM EDT) Magnesium 0.82 0.69 - 1.07 mmol/L [facility] Blood 10/28/2022 4:50 AM EDT 10/28/2022 4:56 AM EDT Narrative Resulting Agency Comment Spec In Lab Cindy Yadav MD CHEMISTRY ORDERABLES [facility] [place] [address] * (ABNORMAL) Basic Metabolic Panel (non-fasting) (10/28/2022 4:50 AM EDT) Glucose 201(H) 65 - 199 mg/dL [facility] Comment:Diabetes: >=200 mg/d L plus symptoms Blood Urea Nitrogen 62(H) 8 - 18 mg/dL [facility] Creatinine 1.27(H) 0.70 - 1.20 mg/dL [facility] Sodium 137 135 - 145 mmol/L [facility] Potassium 4.1 3.5 - 5.0 mmol/L [facility] Comment: Please note: ??Patients with WBC >100,000 may have falsely elevated Potassium levels. ??For accurate Potassium quantification in these patients send serum separator tube (gold top) for subsequent determinations. ??Contact the Clinical Chemistry Laboratory if there are any questions. Chloride 97(L) 98 - 107 mmol/L [facility] Carbon Dioxide 30 22 - 31 mmol/L [facility] Anion Gap 10 5 - 15 mmol/L [facility] Calcium 8.7 8.5 - 10.5 mg/dL [facility] Est Glomerular Filtration Rate 47(L) >=60 mL/min/1. 73 m?? [facility] Comment: This patient's estimated GFR [...] and symptoms in addition to eGFR. Blood 10/28/2022 4:50 AM EDT 10/28/2022 4:56 AM EDT Narrative Resulting Agency Comment Spec In Lab Cindy Yadav MD CHEMISTRY ORDERABLES [facility] [address] * EKG 12 Lead (10/27/2022 10:26 AM EDT) Ventricular rate 71 BPM MUSE SYSTEM QRS Duration 76 ms MUSE SYSTEM Q-T Interval 388 ms MUSE SYSTEM QTC Calculated (Bezet) 421 ms MUSE SYSTEM Calculated R [place] 87 degrees MUSE SYSTEM Calculated T [place] 21 degrees MUSE SYSTEM INTERPRETATION Atrial fibrillation Low voltage QRS Poor R-wave progression Abnormal ECG No previous ECGs available Confirmed by MD YORDAN, ALEXEY ([id number]) on 10/27/2022 5:41:06 PM MUSE SYSTEM 10/27/2022 10:2 6 AM EDT 10/27/2022 5:41 PM EDT Saul Randolph III, MD ECG ORDERA BLES Performing Organization Address City/[facility]/ZIP Co de Phone Number MUSE SYSTEM * (ABNORMAL) Differential, Automated (10/27/2022 3:40 AM EDT) Pathologist [facility] Neutrophil % 75.2 % [facility] Neutrophil Absolute 3.07 1.70 - 6.10 x10(3)/mc L [facility] Lymph % 7.3 % [facility] Lymphocytes Abs 0.3(L) 0.9 - 3.2 x10(3)/mc L [facility] Monocyte % 10.5 % [facility] Monocyte Abs 0.4 0.3 - 0.9 x10(3)/mc L [facility] Eos % 0.0 % [facility] Eosinophils Abs 0.0 0.0 - 0.4 x10(3)/mc L [facility] Basophil % 0.2 % [facility] Baso Absolute 0.0 0.0 - 0.1 x10(3)/mc L [facility] Immature Gran % 6.80 % [facility] Comment: Immature granulocytes(IG's)percentage and absolute count will include metamyelocytes, myelocytes, and promyelocytes. Blood smears from CBCs yielding IG's will be scanned manually for concordance. If this scan disagrees with the automated IG or if promyelocytes are noted, a manual differential will be performed. Immature Gran Absolute 0.28(H) 0.00 - 0.04 x10(3)/mc L [facility] Blood 10/27/2022 3:40 AM EDT 10/27/2022 3:45 AM EDT Narrative Resulting Agency Comment Spec In Lab Kyrie Douglas MD HEMATOLOGY ORDERABLE S [facility] [address] * (ABNORMAL) Hemogram (10/27/2022 3:40 AM EDT) White Blood Cell 4.1 4.0 - 9.5 x10(3)/mc L [facility] Red Blood Cell 2.48(L) 4.00 - 5.21 x10(6)/mc L [facility] Hemoglobin 7.5(L) 11.7 - 15.5 g/dL [facility] Hematocrit 23.8(L) 35.7 - 45.8 % [facility] Mean Cell Volume 96.0(H) 82.6 - 94.4 fL [facility] Mean Cell Hemoglobin 30.2 27.1 - 32.0 pg [facility] Mean Cell Hemoglobin Concentration 31.5(L) 31.7 - 35.0 g/dL [facility] Platelet 27(L) 145 - 357 x10(3)/mc L [facility] RDW Standard Deviation 58.0(H) 37.0 - 46.0 fL [facility] RDW coefficient of variation 16.4(H) 11.5 - 14.1 % [facility] Mean Platelet Volume 12.5 7.6 - 12.9 fL [facility] NRBC% auto 0.0 % [facility] NRBC Absolute 0.000 0.000 - 0.000 x10(3)/mc L [facility] Blood 10/27/2022 3:40 AM EDT 10/27/2022 3:45 AM EDT Narrative Resulting Agency Comment Spec In Lab Kyrie Douglas MD HEMATOLOGY ORDERABLE S Performing Organization Address City/[facility]/ZIP Co de Phone Number [facility] [place] [address] * Magnesium (10/27/2022 3:40 AM EDT) Magnesium 0.92 0.69 - 1.07 mmol/L [facility] Blood 10/27/2022 3:40 AM EDT 10/27/2022 3:45 AM EDT Narrative Resulting Agency Comment Spec In Lab Cindy Yadav MD CHEMISTRY ORDERABLES Performing Organization Address [facility] de Phone Number [facility] [place] [address] * (ABNORMAL) Basic Metabolic Panel (non-fasting) (10/27/2022 3:40 AM EDT) Glucose 177 65 - 199 mg/dL [facility] Comment:Diabetes: >=200 mg/d L plus symptoms Blood Urea Nitrogen 60(H) 8 - 18 mg/dL [facility] Creatinine 1.34(H) 0.70 - 1.20 mg/dL [facility] Sodium 136 135 - 145 mmol/L [facility] Potassium 4.4 3.5 - 5.0 mmol/L [facility] Comment: Please note: ??Patients with WBC >100,000 may have falsely elevated Potassium levels. ??For accurate Potassium quantification in these patients send serum separator tube (gold top) for subsequent determinations. ??Contact the Clinical Chemistry Laboratory if there are any questions. Chloride 98 98 - 107 mmol/L [facility] Carbon Dioxide 29 22 - 31 mmol/L [facility] Anion Gap 9 5 - 15 mmol/L [facility] Calcium 8.7 8.5 - 10.5 mg/dL [facility] Est Glomerular Filtration Rate 44(L) >=60 mL/min/1. 73 m?? [facility] Comment: This patient's estimated GFR [...] and symptoms in addition to eGFR. Blood 10/27/2022 3:40 AM EDT 10/27/2022 3:45 AM EDT Narrative Resulting Agency Comment Spec In Lab Cindy Yadav MD CHEMISTRY ORDERABLES Performing Organization Address City/State/[facility] Co de Phone Number [facility] [place] [address] * ECHO COMPLETE (10/26/2022 5:40 PM EDT) EF 65 [facility]ART[facility] SYSTEM Anatomical Region Laterality Modality Cardiac Other 10/26/2022 4:24 PM EDT Narrative 10/26/2022 5:46 PM EDT ? Echocardiogram Report Name: BRAYAN JARAMILLO ?Study Date: 10/26/2022 04:24 PM ? Patient Location: [id number] : 1955 ? Height: 172 cm ? Account: [id number] Age: 67 yrs ? Weight: 110 kg Gender: Female ?BSA: 2.2 m2 Ordering Physician: SAUL RANDOLPH III Referring Physician: SAMEER LLAMAS Performed By: BLAYNE Grant Reason For Study: Pleural effusion Exam Location: [facility]. Interpretation Summary There is severe aortic stenosis. [...] pericardial effusion. See report for additional findings. Procedure Complete-[id number]. Satisfactory quality. Irregular rhythm. Left Ventricle Left ventricle is of normal size. Mildly increased thickness of the basal septum with no obstruction to LV outflow. There is no ventricular septal defect. Left ventricular systolic function is normal. Left ventricular ejection fraction is estimated visually at 65%. There are no segmental wall motion abnormalities. Right Ventricle Right ventricle is moderately dilated. Right ventricular systolic function is mildly decreased. Left Atrium The left atrium is severely dilated. The interatrial septum is not well visualized. Right Atrium The right atrium is severely dilated. Aortic Valve The aortic valve is probably trileaflet. The aortic valve is severely thickened. The aortic valve is severely calcified. There is calcification of the aortic annulus. There is severe aortic stenosis. The peak instantaneous gradient across the aortic valve is 78 mmHg. The mean gradient across the aortic valve is 48. The aortic valve area calculated using the continuity equation is 0.64 cm2. The dimensionless index is 0.20. There is trace aortic regurgitation. Mitral Valve The mitral valve leaflets are thickened. There is no mitral stenosis. There is mild mitral regurgitation. Tricuspid Valve The tricuspid valve is structurally normal. There is no tricuspid stenosis. There is moderate tricuspid regurgitation. The Doppler jet is directed along the atrial septum. Pulmonic Valve The pulmonic valve is not well visualized. There is no valvular pulmonic stenosis. There is trace pulmonic valve regurgitation. Great Arteries The diameter at the level of the sinuses of Valsalva is 3.3 cm. The ascending aorta is dilated. The maximum diameter of the proximal ascending aorta is 4.3 cm. Venous Inferior vena cava is not well visualized. Pericardium/Pleural There is a small pericardial effusion. The pericardial effusion is posterior. Hemodynamics The peak right ventricular systolic pressure is 33 mmHg. Plus RA presssure. Left ventricular filling pressure is indeterminate. ? 2D Measurements ? Volumes ?IVSd: 1.2 cm ? LAV(MOD-bp) Indexed: ?LVIDd: 4.7 cm ?LVPWd: 1.0 cm ?51.2 ml/m2 ?LV mass(C)d: 193.3 grams ? RA A4Cs_phl: 33.4 cm2 ? SV(LVOT): 63.3 ml ?LV mass(C)dI: 87.4 grams/m2 ?Ao root diam: 3.3 cm ? SI(LVOT): 28.6 ml/m2 ?Ao root diam index: 1.5 ?asc Aorta Diam: 4.3 cm ?LVOT diam: 2.0 cm Doppler TR max katie: 293.8 cm/sec RVSP(TR): 34.7 mmHg LV V1 VTI: 19.6 cm Ao V2 VTI: 98.5 cm Ao Max: 440.4 cm/sec Ao valve max: 77.8 mmHg Ao valve mean: 47.8 mmHg ANAHY(I,D): 0.64 cm2 Dimensionless index Aov: 0.20 I ?WMSI = 1.00 ? % Normal = 100 ?Segments ??Size X - Cannot ?? 1 - Normal ?? 2 - ? 3 - Akinetic 4 - ?1-2 ? small Interpret ? Hypokinetic ?Dyskinetic ?? 3-5 ? moderate 5 - ? 6-14 ?large Aneurysmal ?15-16 ?? diffuse Procedure Note Shady Urena MD - 10/26/2022 Echocardiogram Report Name: BRAYAN JARAMILLO Study Date: 304:24 PM Patient Location: [id number] : 1955 Height: 172 cm Account: [id number] Age: 67 yrs Weight: 110 kg Gender: Female BSA: 2.2 m2 Ordering Physician: SAUL RANDOLPH III Referring Physician: SAMEER LLAMAS Performed By: BLAYNE Grant Reason For Study: Pleural effusion Exam Location: [facility]. Interpretation Summary There is severe aortic stenosis. The mean gradient across the aortic valveis 48. The aortic valve area calculated using the continuity equation is 0.64cm2. Left ventricular ejection fraction is estimated visually at 65%. Right ventricle is moderately dilated. Right ventricular systolic functionis mildly decreased. The peak right ventricular systolic pressure is 33 mmHgplus RA presssure. There is a small posterior pericardial effusion. See report for additional findings. Procedure Complete-[id number]. Satisfactory quality. Irregular rhythm. Left Ventricle Left ventricle is of normal size. Mildly increased thickness of the basalseptum with no obstruction to LV outflow. There is no ventricular septal defect.Left ventricular systolic function is normal. Left ventricular ejectionfraction is estimated visually at 65%. There are no segmental wall motionabnormalities. Right Ventricle Right ventricle is moderately dilated. Right ventricular systolic functionis mildly decreased. Left Atrium The left atrium is severely dilated. The interatrial septum is not well visualized. Right Atrium The right atrium is severely dilated. Aortic Valve The aortic valve is probably trileaflet. The aortic valve is severelythickened. The aortic valve is severely calcified. There is calcification of theaortic annulus. There is severe aortic stenosis. The peak instantaneous gradientacross the aortic valve is 78 mmHg. The mean gradient across the aortic valve is48. The aortic valve area calculated using the continuity equation is 0.64 cm2.The dimensionless index is 0.20. There is trace aortic regurgitation. Mitral Valve The mitral valve leaflets are thickened. There is no mitral stenosis.There is mild mitral regurgitation. Tricuspid Valve The tricuspid valve is structurally normal. There is no tricuspidstenosis. There is moderate tricuspid regurgitation. The Doppler jet is directed along theatrial septum. Pulmonic Valve The pulmonic valve is not well visualized. There is no valvular pulmonicstenosis. There is trace pulmonic valve regurgitation. Great Arteries The diameter at the level of the sinuses of Valsalva is 3.3 cm. Theascending aorta is dilated. The maximum diameter of the proximal ascending aorta is4.3 cm. Venous Inferior vena cava is not well visualized. Pericardium/Pleural There is a small pericardial effusion. The pericardial effusion isposterior. Hemodynamics The peak right ventricular systolic pressure is 33 mmHg. Plus RApresssure. Left ventricular filling pressure is indeterminate. 2D Measurements Volumes IVSd: 1.2 cm LAV(MOD-bp)Indexed: LVIDd: 4.7 cm LVPWd: 1.0 cm 51.2 ml/m2 LV mass(C)d: 193.3 grams RA A4Cs_phl: 33.4cm2 SV(LVOT): 63.3ml LV mass(C)dI: 87.4 grams/m2 Ao root diam: 3.3 cm SI(LVOT): 28.6ml/m2 Ao root diam index: 1.5 asc Aorta Diam: 4.3 cm LVOT diam: 2.0 cm Doppler TR max katie: 293.8 cm/sec RVSP(TR): 34.7 mmHg LV V1 VTI: 19.6 cm Ao V2 VTI: 98.5 cm Ao Max: 440.4 cm/sec Ao valve max: 77.8 mmHg Ao valve mean: 47.8 mmHg ANAHY(I,D): 0.64 cm2 Dimensionless index Aov: 0.20 I WMSI = 1.00 % Normal = 100 SegmentsSize X - Cannot 1 - Normal 2 - 3 - Akinetic 4 - 1-2small Interpret Hypokinetic Dyskinetic 3-5moderate 5 - 6-14large Aneurysmal 15-16diffuse Saul Randolph III, MD ECHO ORDER DOM * XR Chest One View (10/26/2022 10:18 AM EDT) Anatomical Region Laterality Modality Chest N/A Digital Radiogra phy Impressions 10/26/2022 12:10 PM EDT 1. ??Unchanged moderate right and small left pleural effusions. 2. ??Persistent mild pulmonary vascular congestion. 3. ??The bilateral lower lobe opacities are nonspecific and likely represent a combination of effusion and atelectasis however a component of pneumonia is difficult to exclude particularly at the right lung base. Thank you for letting us participate in the care of this patient. ??If you are a health care provider and have any questions regarding this report, please contact the number below. ??For patients who have questions please contact the health foster care worker that requested your imaging first. ? Narrative 10/26/2022 12:10 PM EDT EXAMINATION: XR CHEST ONE VIEW CLINICAL HISTORY: bilateral pleural effusions seen on CXR from [place], new O2 requirement following some diuresis, evaluate for improvement TECHNIQUE: 1 view of the chest , single image COMPARISON: Chest radiograph 10/22/[address] chest 10/22/2022 FINDINGS: Right chest port central venous catheter tip projects over the lower SVC. Unchanged ill-defined opacities obscure the bilateral lung bases. There is mild peribronchial thickening/cuffing. No pneumothorax. Unchanged moderate right and small left pleural effusions. There is cardiomegaly, similar to prior. The hilar are obscured but unchanged. Limited assessment of osseous structures demonstrates no acute abnormality. Procedure Note Saul Lemus MD - 10/26/2022 EXAMINATION: XR CHEST ONE VIEW CLINICAL HISTORY: bilateral pleural effusions seen on CXR from [place],new O2 requirement following some diuresis, evaluate for improvement TECHNIQUE: 1 view of the chest , single image COMPARISON: Chest radiograph 10/22/[address] chest 10/22/2022 FINDINGS: Right chest port central venous catheter tip projects over the lowerSVC. Unchanged ill-defined opacities obscure the bilateral lung bases. There ismild peribronchial thickening/cuffing. No pneumothorax. Unchanged moderateright and small left pleural effusions. There is cardiomegaly, similar to prior. Thehilar are obscured but unchanged. Limited assessment of osseous structures demonstrates no acute abnormality. IMPRESSION 1. Unchanged moderate right and small left pleural effusions. 2. Persistent mild pulmonary vascular congestion. 3. The bilateral lower lobe opacities are nonspecific and likelyrepresent a combination of effusion and atelectasis however a component of pneumoniais difficult to exclude particularly at the right lung base. Thank you for letting us participate in the care of this patient. If youare a health care provider and have any questions regarding this report,please contact the number below. For patients who have questions please contactthe health foster care worker that requested your imaging first. Electronically signed by: Saul Lemus MD, [facility]([phone]), at 10/26/2022 12:10 PM Saul Randolph III, MD IMG DX ORD ERABLES * (ABNORMAL) Differential, Automated (10/26/2022 4:15 AM EDT) Neutrophil % 78.0 % [facility] Neutrophil Absolute 2.65 1.70 - 6.10 x10(3)/mc L [facility] Lymph % 7.6 % [facility] Lymphocytes Abs 0.3(L) 0.9 - 3.2 x10(3)/ L [facility] Monocyte % 10.9 % [facility] Monocyte Abs 0.4 0.3 - 0.9 x10(3)/ L [facility] Eos % 0.0 % [facility] Eosinophils Abs 0.0 0.0 - 0.4 x10(3)/ L [facility] Basophil % 0.6 % [facility] Baso Absolute 0.0 0.0 - 0.1 x10(3)/ L [facility] Immature Gran % 2.90 % [facility] Comment: Immature granulocytes(IG's)percentage and absolute count will include metamyelocytes, myelocytes, and promyelocytes. Blood smears from CBCs yielding IG's will be scanned manually for concordance. If this scan disagrees with the automated IG or if promyelocytes are noted, a manual differential will be performed. Immature Gran Absolute 0.10(H) 0.00 - 0.04 x10(3)/ L [facility] Blood 10/26/2022 4:15 AM EDT 10/26/2022 4:23 AM EDT Narrative Resulting Agency Comment Spec In Lab Kyrie Douglas MD HEMATOLOGY ORDERABLE S [facility] [address] * (ABNORMAL) Hemogram (10/26/2022 4:15 AM EDT) White Blood Cell 3.4(L) 4.0 - 9.5 x10(3)/[facility] Red Blood Cell 2.44(L) 4.00 - 5.21 x10(6)/ L [facility] Hemoglobin 7.2(L) 11.7 - 15.5 g/dL [facility] Hematocrit 23.3(L) 35.7 - 45.8 % [facility] Mean Cell Volume 95.5(H) 82.6 - 94.4 fL [facility] Mean Cell Hemoglobin 29.5 27.1 - 32.0 pg [facility] Mean Cell Hemoglobin Concentration 30.9(L) 31.7 - 35.0 g/dL [facility] Platelet 15(Critic al) 145 - 357 x10(3)/mc L [facility] RDW Standard Deviation 57.6(H) 37.0 - 46.0 fL [facility] RDW coefficient of variation 16.7(H) 11.5 - 14.1 % [facility] Mean Platelet Volume 11.9 7.6 - 12.9 fL [facility] NRBC% auto 0.0 % [facility] NRBC Absolute 0.000 0.000 - 0.000 x10(3)/mc L [facility] Blood 10/26/2022 4:15 AM EDT 10/26/2022 4:23 AM EDT Narrative Resulting Agency Comment Spec In Lab Kyrie Douglas MD HEMATOLOGY ORDERABLE S Performing Organization Address [facility] Co de Phone Number [facility] [address] * Magnesium (10/26/2022 4:15 AM EDT) Magnesium 0.94 0.69 - 1.07 mmol/L [facility] Blood 10/26/2022 4:15 AM EDT 10/26/2022 4:23 AM EDT Narrative Resulting Agency Comment Spec In Lab Cindy Yadav MD CHEMISTRY ORDERABLES Performing Organization Address [facility] Co de Phone Number [facility] [address] * (ABNORMAL) Basic Metabolic Panel (non-fasting) (10/26/2022 4:15 AM EDT) Glucose 166 65 - 199 mg/dL [facility] Comment:Diabetes: >=200 mg/d L plus symptoms Blood Urea Nitrogen 55(H) 8 - 18 mg/dL [facility] Creatinine 1.23(H) 0.70 - 1.20 mg/dL [facility] Sodium 135 135 - 145 mmol/L [facility] Potassium 4.6 3.5 - 5.0 mmol/L [facility] Comment: Please note: ??Patients with WBC >100,000 may have falsely elevated Potassium levels. ??For accurate Potassium quantification in these patients send serum separator tube (gold top) for subsequent determinations. ??Contact the Clinical Chemistry Laboratory if there are any questions. Chloride 99 98 - 107 mmol/L [facility] Carbon Dioxide 27 22 - 31 mmol/L [facility] Anion Gap 9 5 - 15 mmol/L [facility] Calcium 8.8 8.5 - 10.5 mg/dL [facility] Est Glomerular Filtration Rate 49(L) >=60 mL/min/1. 73 m?? [facility] Comment: This patient's estimated GFR [...] and symptoms in addition to eGFR. Blood 10/26/2022 4:15 AM EDT 10/26/2022 4:23 AM EDT Narrative Resulting Agency Comment Spec In Lab Cindy Yadav MD CHEMISTRY ORDERABLES [facility] [place] [address] * (ABNORMAL) Differential, Automated (10/25/2022 4:00 AM EDT) Neutrophil % 83.2 % [facility] Neutrophil Absolute 2.39 1.70 - 6.10 x10(3)/mc L [facility] Lymph % 7.0 % [facility] Lymphocytes Abs 0.2(L) 0.9 - 3.2 x10(3)/mc L [facility] Monocyte % 8.4 % [facility] Monocyte Abs 0.2(L) 0.3 - 0.9 x10(3)/mc L [facility] Eos % 0.0 % [facility] Eosinophils Abs 0.0 0.0 - 0.4 x10(3)/ L [facility] Basophil % 0.0 % [facility] Baso Absolute 0.0 0.0 - 0.1 x10(3)/mc L [facility] Immature Gran % 1.40 % [facility] Comment: Immature granulocytes(IG's)percentage and absolute count will include metamyelocytes, myelocytes, and promyelocytes. Blood smears from CBCs yielding IG's will be scanned manually for concordance. If this scan disagrees with the automated IG or if promyelocytes are noted, a manual differential will be performed. Immature Gran Absolute 0.04 0.00 - 0.04 x10(3)/ L [facility] Blood 10/25/2022 4:00 AM EDT 10/25/2022 4:11 AM EDT Narrative Resulting Agency Comment Spec In Lab Kyrie Douglas MD HEMATOLOGY ORDERABLE S [facility] [place] [address] * (ABNORMAL) Hemogram (10/25/2022 4:00 AM EDT) White Blood Cell 2.9(L) 4.0 - 9.5 x10(3)/mc L [facility] Red Blood Cell 2.46(L) 4.00 - 5.21 x10(6)/mc L [facility] Hemoglobin 7.4(L) 11.7 - 15.5 g/dL [facility] Hematocrit 22.7(L) 35.7 - 45.8 % [facility] Mean Cell Volume 92.3 82.6 - 94.4 fL [facility] Mean Cell Hemoglobin 30.1 27.1 - 32.0 pg [facility] Mean Cell Hemoglobin Concentration 32.6 31.7 - 35.0 g/dL [facility] Platelet 11(Critic al) 145 - 357 x10(3)/ L [facility] RDW Standard Deviation 58.4(H) 37.0 - 46.0 fL [facility] RDW coefficient of variation 17.2(H) 11.5 - 14.1 % [facility] Mean Platelet Volume 12.1 7.6 - 12.9 fL [facility] NRBC% auto 0.0 % [facility] NRBC Absolute 0.000 0.000 - 0.000 x10(3)/mc L [facility] Blood 10/25/2022 4:00 AM EDT 10/25/2022 4:11 AM EDT Narrative Resulting Agency Comment Spec In Lab Kyrie Douglas MD HEMATOLOGY ORDERABLE S Performing Organization Address [facility] Co de Phone Number [facility] [address] * Magnesium (10/25/2022 4:00 AM EDT) Magnesium 0.94 0.69 - 1.07 mmol/L [facility] Blood 10/25/2022 4:00 AM EDT 10/25/2022 4:11 AM EDT Narrative Resulting Agency Comment Spec In Lab Cindy Yadav MD CHEMISTRY ORDERABLES Performing Organization Address [facility] Co de Phone Number [facility] [address] * (ABNORMAL) Basic Metabolic Panel (non-fasting) (10/25/2022 4:00 AM EDT) Glucose 180 65 - 199 mg/dL [facility] Comment:Diabetes: >=200 mg/d L plus symptoms Blood Urea Nitrogen 55(H) 8 - 18 mg/dL [facility] Creatinine 1.24(H) 0.70 - 1.20 mg/dL [facility] Sodium 137 135 - 145 mmol/L [facility] Potassium 4.2 3.5 - 5.0 mmol/L [facility] Comment: Please note: ??Patients with WBC >100,000 may have falsely elevated Potassium levels. ??For accurate Potassium quantification in these patients send serum separator tube (gold top) for subsequent determinations. ??Contact the Clinical Chemistry Laboratory if there are any questions. Chloride 100 98 - 107 mmol/L [facility] Carbon Dioxide 28 22 - 31 mmol/L [facility] Anion Gap 9 5 - 15 mmol/L [facility] Calcium 8.6 8.5 - 10.5 mg/dL [facility] Est Glomerular Filtration Rate 48(L) >=60 mL/min/1. 73 m?? [facility] Comment: This patient's estimated GFR [...] and symptoms in addition to eGFR. Blood 10/25/2022 4:00 AM EDT 10/25/2022 4:11 AM EDT Narrative Resulting Agency Comment Spec In Lab Cindy Yadav MD CHEMISTRY ORDERABLES [facility] [address] * (ABNORMAL) Differential, Manual (10/24/2022 1:40 AM EDT) Neutrophil % Manual 86 % [facility] Lymphocyte Manual 8 % [facility] Monocyte Manual 4 % [facility] Myelocyte Manual 1 % [facility] Promyelocyte Manual 1 % [facility] Neutrophil Absolute (ANC) - Manual 1.7 1.7 - 6.1 x10(3)/mc L [facility] Neutrophil Absolute (ANC) - Automated 1.74 1.70 - 6.10 x10(3)/mc L [facility] Lymph Absolute Manual 0.2(L) 0.9 - 3.2 x10(3)/mc L [facility] Monocyte Absolute Manual 0.1(L) 0.3 - 0.9 x10(3)/mc L [facility] Myelo Absolute Manual 0.0 0.0 - 0.0 x10(3)/mc L [facility] Promyelo Absolute Manual 0.0 0.0 - 0.0 x10(3)/mc L [facility] Total Cells Ct 100 [facility] Plat estimate Decreased [facility] RBC Morphology Abnormal [facility] Hypochromia Slight [facility] Ovalocytes 1-5 /HPF [facility] Toxic Granulation Present [facility] Blood 10/24/2022 1:40 AM EDT 10/24/2022 1:46 AM EDT Narrative Resulting Agency Comment Spec In Lab Kyrie Douglas MD HEMATOLOGY ORDERABLE S [facility] [address] [place] [address] * (ABNORMAL) Hemogram (10/24/2022 1:40 AM EDT) White Blood Cell 2.0(L) 4.0 - 9.5 x10(3)/mc L [facility] Red Blood Cell 2.40(L) 4.00 - 5.21 x10(6)/mc L [facility] Hemoglobin 7.2(L) 11.7 - 15.5 g/dL [facility] Hematocrit 22.1(L) 35.7 - 45.8 % [facility] Mean Cell Volume 92.1 82.6 - 94.4 fL [facility] Mean Cell Hemoglobin 30.0 27.1 - 32.0 pg [facility] Mean Cell Hemoglobin Concentration 32.6 31.7 - 35.0 g/dL [facility] Platelet 8(Critical) 145 - 357 x10(3)/mc L [facility] RDW Standard Deviation 58.6(H) 37.0 - 46.0 fL [facility] RDW coefficient of variation 17.5(H) 11.5 - 14.1 % [facility] Mean Platelet Volume Not Measured 7.6 - 12.9 fL [facility] NRBC% auto 0.0 % [facility] NRBC Absolute 0.000 0.000 - 0.000 x10(3)/mc L [facility] Blood 10/24/2022 1:40 AM EDT 10/24/2022 1:46 AM EDT Narrative Resulting Agency Comment Spec In Lab Kyrie Douglas MD HEMATOLOGY ORDERABLE S Performing Organization Address City/[facility]/ZIP Co de Phone Number [facility] [place] [address] * Magnesium (10/24/2022 1:40 AM EDT) Magnesium 0.89 0.69 - 1.07 mmol/L [facility] Blood 10/24/2022 1:40 AM EDT 10/24/2022 1:46 AM EDT Narrative Resulting Agency Comment Spec In Lab Cindy Yadav MD CHEMISTRY ORDERABLES Performing Organization Address [facility] Campus/[facility] Co de Phone Number [facility] [place] [address] * (ABNORMAL) Basic Metabolic Panel (non-fasting) (10/24/2022 1:40 AM EDT) Glucose 103 65 - 199 mg/dL [facility] Comment:Diabetes: >=200 mg/d L plus symptoms Blood Urea Nitrogen 60(H) 8 - 18 mg/dL [facility] Creatinine 1.42(H) 0.70 - 1.20 mg/dL [facility] Sodium 135 135 - 145 mmol/L [facility] Potassium 4.0 3.5 - 5.0 mmol/L [facility] Comment: Please note: ??Patients with WBC >100,000 may have falsely elevated Potassium levels. ??For accurate Potassium quantification in these patients send serum separator tube (gold top) for subsequent determinations. ??Contact the Clinical Chemistry Laboratory if there are any questions. Chloride 97(L) 98 - 107 mmol/L [facility] Carbon Dioxide 27 22 - 31 mmol/L [facility] Anion Gap 11 5 - 15 mmol/L [facility] Calcium 8.5 8.5 - 10.5 mg/dL [facility] Est Glomerular Filtration Rate 41(L) >=60 mL/min/1. 73 m?? [facility] Comment: This patient's estimated GFR [...] and symptoms in addition to eGFR. Blood 10/24/2022 1:40 AM EDT 10/24/2022 1:46 AM EDT Narrative Resulting Agency Comment Spec In Lab Cindy Yadav MD CHEMISTRY ORDERABLES Performing Organization Address City/[facility]/[place] [address] * Transfuse RBC (10/23/2022 7:13 PM EDT) Saul Randolph III, MD NURSING TR EATMENT ORDERABLES - BLOOD ADMIN * Prepare RBC (10/23/2022 4:15 PM EDT) Dispensed? Yes [facility] Blood 10/23/2022 4:15 PM EDT 10/23/2022 4:14 PM EDT Saul Randolph III, MD BLOOD BANK PRODUCT ORDERABLES Performing Organization Address City/[facility]/[place] [address] * (ABNORMAL) Differential, Automated (10/23/2022 3:10 PM EDT) Neutrophil % 80.5 % [facility] Neutrophil Absolute 1.74 1.70 - 6.10 x10(3)/mc L [facility] Lymph % 9.7 % [facility] Lymphocytes Abs 0.2(L) 0.9 - 3.2 x10(3)/mc L [facility] Monocyte % 5.6 % [facility] Monocyte Abs 0.1(L) 0.3 - 0.9 x10(3)/mc L [facility] Eos % 1.9 % [facility] Eosinophils Abs 0.0 0.0 - 0.4 x10(3)/mc L [facility] Basophil % 0.0 % [facility] Baso Absolute 0.0 0.0 - 0.1 x10(3)/ L [facility] Immature Gran % 2.30 % [facility] Comment: Immature granulocytes(IG's)percentage and absolute count will include metamyelocytes, myelocytes, and promyelocytes. Blood smears from CBCs yielding IG's will be scanned manually for concordance. If this scan disagrees with the automated IG or if promyelocytes are noted, a manual differential will be performed. Immature Gran Absolute 0.05(H) 0.00 - 0.04 x10(3)/[facility] Blood 10/23/2022 3:10 PM EDT 10/23/2022 3:13 PM EDT Narrative Resulting Agency Comment Spec In Lab Daniel Green MD HEMATOLOGY ORDERABLE S Performing Organization Address City/State/[facility] Co de Phone Number [facility] [place] [address] * (ABNORMAL) Hemogram (10/23/2022 3:10 PM EDT) White Blood Cell 2.2(L) 4.0 - 9.5 x10(3)/[facility] Red Blood Cell 2.13(L) 4.00 - 5.21 x10(6)/[facility] Hemoglobin 6.3(L) 11.7 - 15.5 g/dL [facility] Hematocrit 19.7(L) 35.7 - 45.8 % [facility] Mean Cell Volume 92.5 82.6 - 94.4 fL [facility] Mean Cell Hemoglobin 29.6 27.1 - 32.0 pg [facility] Mean Cell Hemoglobin Concentration 32.0 31.7 - 35.0 g/dL [facility] Platelet 6(Critical) 145 - 357 x10(3)/[facility] Comment: This result has been called to AARON CHIN by Armin Almonte on 10 23 2022 at 1521, and has been read back. RDW Standard Deviation 59.7(H) 37.0 - 46.0 fL [facility] RDW coefficient of variation 17.5(H) 11.5 - 14.1 % [facility] Mean Platelet Volume Not Measured 7.6 - 12.9 fL [facility] NRBC% auto 0.0 % [facility] NRBC Absolute 0.000 0.000 - 0.000 x10(3)/mc L [facility] Blood 10/23/2022 3:10 PM EDT 10/23/2022 3:13 PM EDT Narrative Resulting Agency Comment Spec In Lab Daniel Green MD HEMATOLOGY ORDERABLE S [facility] [place] [address] * Transfuse 1 unit platelets, apheresis (10/23/2022 2:35 PM EDT) Saul Randolph III, MD NURSING TR EATMENT ORDERABLES - BLOOD ADMIN * Transfuse 1 unit platelets, apheresis (10/23/2022 2:35 PM EDT) Saul Randolph III, MD NURSING TR EATMENT ORDERABLES - BLOOD ADMIN * Smear Review Report (10/23/2022 12:49 PM EDT) Smear Review Report [id number] ? Location: L1WD; 0110; A The signing pathologist has (i) examined the relevant preparation(s) for the specimen(s) and (ii) rendered or confirmed the diagnosis(es). . ? Smear Review DIAGNOSIS Pancytopenia. Electronically signed by: ?Sulma QUINTANILLA, Anthony Verified: ??10/25/2022 10:22 ??Hematopathologis t Performed at: ??-[facility] Dept. of Pathology, [place] [address] Plaque Maker: Justyna Terry MD, FCAP, ??CLIA Certificate: [id number] DISCUSSION The etiology of pancytopenia is not apparent from review of this peripheral blood smear. Among the diagnostic considerations could include nutritional deficiencies (vitamin B12, folic acid, copper), an acute or chronic infectious or inflammatory process, autoimmune/collage n vascular disorder, medication effect, toxic exposures (including alcohol), occult cirrhosis with portal hypertension & hypersplenism. No morphologic features of a primary hematopoietic disorder (e.g., plasma cell neoplasm, myelodysplastic syndrome) are noted on this peripheral blood smear, but such a disorder is not excluded by these findings. If cytopenias persist without explanation after clinical and lab investigation and discontinuation of potentially offending medications, a bone marrow examination may provide additional diagnostic clarity, if clinically appropriate. ADDITIONAL STUDIES 10/25/22 04:00 EDT ?WBC 2.9 x10(3)/mcL (Ref. Range 4.0 - 9.5) ?? RBC 2.46 x10(6)/mcL (Ref. Range 4.00 - 5.21) ?? Hgb 7.4 g/dL (Ref. Range 11.7 - 15.5) ?? Hct 22.7 % (Ref. Range 35.7 - 45.8) ?? MCV 92.3 fL (Ref. Range 82.6 - 94.4) ?? MCH 30.1 pg (Ref. Range 27.1 - 32.0) ?? MCHC 32.6 g/dL (Ref. Range 31.7 - 35.0) ?? RDWSD 58.4 fL (Ref. Range 37.0 - 46.0) ?? RDWCV 17.2 % (Ref. Range 11.5 - 14.1) ?? Platelet 11 x10(3)/mcL (Ref. Range 145 - 357) CLINICAL INFORMATION ext sr [facility] 10/23/2022 12:4 9 PM EDT Daniel Green MD HEMATOLOGY ORDERABLE S [facility] [place] [address] * Prepare Platelets, Apheresis (10/23/2022 12:30 PM EDT) Pathologist [facility] Dispensed? Yes [facility] Blood 10/23/2022 12:3 0 PM EDT 10/23/2022 12:27 PM EDT Saul Randolph III, MD BLOOD BANK PRODUCT ORDERABLES Performing Organization Address City/[facility]/[place] [address] * Scan, Peripheral Blood (10/23/2022 12:00 PM EDT) Pathologist [facility] Plat estimate Decreased [facility] RBC Morphology Abnormal [facility] Hypochromia Slight [facility] Ovalocytes 1-5 /HPF [facility] Blood 10/23/2022 12:0 0 PM EDT 10/23/2022 12:35 PM EDT Narrative Resulting Agency Comment Spec In Lab Daniel Green MD HEMATOLOGY ORDERABLE S Performing Organization Address City/[facility]/ZIP Co de Phone Number [facility] [place] [address] * (ABNORMAL) Differential, Automated (10/23/2022 12:00 PM EDT) [facility] Neutrophil % 69.7 % [facility] Neutrophil Absolute 1.56(L) 1.70 - 6.10 x10(3)/mc L [facility] Lymph % 9.4 % [facility] Lymphocytes Abs 0.2(L) 0.9 - 3.2 x10(3)/mc L [facility] Monocyte % 7.1 % [facility] Monocyte Abs 0.2(L) 0.3 - 0.9 x10(3)/mc L [facility] Eos % 2.2 % [facility] Eosinophils Abs 0.0 0.0 - 0.4 x10(3)/mc L [facility] Basophil % 0.0 % [facility] Baso Absolute 0.0 0.0 - 0.1 x10(3)/mc L [facility] Immature Gran % 11.60 % [facility] Comment: Immature granulocytes(IG's)percentage and absolute count will include metamyelocytes, myelocytes, and promyelocytes. Blood smears from CBCs yielding IG's will be scanned manually for concordance. If this scan disagrees with the automated IG or if promyelocytes are noted, a manual differential will be performed. Immature Gran Absolute 0.26(H) 0.00 - 0.04 x10(3)/mc L [facility] Blood 10/23/2022 12:0 0 PM EDT 10/23/2022 12:35 PM EDT Narrative Resulting Agency Comment Spec In Lab Daniel Green MD HEMATOLOGY ORDERABLE S [facility] [address] * (ABNORMAL) Hemogram (10/23/2022 12:00 PM EDT) White Blood Cell 2.2(L) 4.0 - 9.5 x10(3)/mc L [facility] Red Blood Cell 2.21(L) 4.00 - 5.21 x10(6)/mc L [facility] Hemoglobin 6.7(L) 11.7 - 15.5 g/dL [facility] Hematocrit 20.8(L) 35.7 - 45.8 % [facility] Mean Cell Volume 94.1 82.6 - 94.4 fL [facility] Mean Cell Hemoglobin 30.3 27.1 - 32.0 pg [facility] Mean Cell Hemoglobin Concentration 32.2 31.7 - 35.0 g/dL [facility] Platelet 6(Critical) 145 - 357 x10(3)/mc L [facility] Comment: This result has been called to JONATAN ADAMS by Armin Almonte on 10 23 2022 at 1328, and has been read back. RDW Standard Deviation 59.1(H) 37.0 - 46.0 fL [facility] RDW coefficient of variation 17.3(H) 11.5 - 14.1 % [facility] Mean Platelet Volume Not Measured 7.6 - 12.9 fL [facility] NRBC% auto 0.0 % [facility] NRBC Absolute 0.000 0.000 - 0.000 x10(3)/mc L [facility] Blood 10/23/2022 12:0 0 PM EDT 10/23/2022 12:35 PM EDT Narrative Resulting Agency Comment Spec In Lab Daniel Green MD HEMATOLOGY ORDERABLE S Performing Organization Address [facility]/ZIP Co de Phone Number [facility] [place] [address] * Direct antiglobulin test (10/23/2022 12:00 PM EDT) DEBRA Poly Negative [facility] Blood 10/23/2022 12:0 0 PM EDT 10/23/2022 12:51 PM EDT Narrative Resulting Agency Comment Spec In Lab Saul Randolph III, MD BLOOD BANK LAB ORDERABLES Performing Organization Address [facility] Co de Phone Number [facility] [place] [address] * Peripheral Smear Review (10/23/2022 12:00 PM EDT) Peripheral Smear Review See Comment [facility] Comment: When completed by the Pathologist, report [id number] will display under Hematopathology Reports. Blood 10/23/2022 12:0 0 PM EDT 10/23/2022 12:35 PM EDT Narrative Resulting Agency Comment Spec In Lab Saul Randolph III, MD HEMATOLOGY ORDERABLES Performing Organization Address [facility] Co de Phone Number [facility] [address] * Scan, Peripheral Blood (10/23/2022 6:38 AM EDT) Plat estimate Decreased [facility] RBC Morphology Abnormal [facility] Hypochromia Slight [facility] Ovalocytes 1-5 /HPF [facility] Blood 10/23/2022 6:38 AM EDT 10/23/2022 6:48 AM EDT Narrative Resulting Agency Comment Spec In Lab Kyrie Douglas MD HEMATOLOGY ORDERABLE S [facility] [place] [address] * (ABNORMAL) Differential, Automated (10/23/2022 6:38 AM EDT) Neutrophil % 72.0 % [facility] Neutrophil Absolute 1.64(L) 1.70 - 6.10 x10(3)/mc L [facility] Lymph % 8.3 % [facility] Lymphocytes Abs 0.2(L) 0.9 - 3.2 x10(3)/mc L [facility] Monocyte % 3.9 % [facility] Monocyte Abs 0.1(L) 0.3 - 0.9 x10(3)/mc L [facility] Eos % 2.2 % [facility] Eosinophils Abs 0.0 0.0 - 0.4 x10(3)/mc L [facility] Basophil % 0.0 % [facility] Baso Absolute 0.0 0.0 - 0.1 x10(3)/mc L [facility] Immature Gran % 13.60 % [facility] Comment: Immature granulocytes(IG's)percentage and absolute count will include metamyelocytes, myelocytes, and promyelocytes. Blood smears from CBCs yielding IG's will be scanned manually for concordance. If this scan disagrees with the automated IG or if promyelocytes are noted, a manual differential will be performed. Immature Gran Absolute 0.31(H) 0.00 - 0.04 x10(3)/mc L [facility] Blood 10/23/2022 6:38 AM EDT 10/23/2022 6:48 AM EDT Narrative Resulting Agency Comment Spec In Lab Kyrie Douglas MD HEMATOLOGY ORDERABLE S [facility] [address] * (ABNORMAL) Hemogram (10/23/2022 6:38 AM EDT) White Blood Cell 2.3(L) 4.0 - 9.5 x10(3)/mc L [facility] Red Blood Cell 2.32(L) 4.00 - 5.21 x10(6)/mc L [facility] Hemoglobin 7.0(L) 11.7 - 15.5 g/dL [facility] Hematocrit 21.6(L) 35.7 - 45.8 % [facility] Mean Cell Volume 93.1 82.6 - 94.4 fL [facility] Mean Cell Hemoglobin 30.2 27.1 - 32.0 pg [facility] Mean Cell Hemoglobin Concentration 32.4 31.7 - 35.0 g/dL [facility] Platelet 5(Critical) 145 - 357 x10(3)/mc L [facility] Comment: This result has been called to JONATAN MENDOSA by Ld Bridges on 10 23 2022 at 0732, and has been read back. RDW Standard Deviation 56.6(H) 37.0 - 46.0 fL [facility] RDW coefficient of variation 17.0(H) 11.5 - 14.1 % [facility] Mean Platelet Volume Not Measured 7.6 - 12.9 fL [facility] NRBC% auto 0.0 % [facility] NRBC Absolute 0.000 0.000 - 0.000 x10(3)/ L [facility] Blood 10/23/2022 6:38 AM EDT 10/23/2022 6:48 AM EDT Narrative Resulting Agency Comment Spec In Lab Kyrie Douglas MD HEMATOLOGY ORDERABLE S [facility] [place] [address] * Magnesium (10/23/2022 6:38 AM EDT) Magnesium 0.92 0.69 - 1.07 mmol/L [facility] Blood 10/23/2022 6:38 AM EDT 10/23/2022 6:48 AM EDT Narrative Resulting Agency Comment Spec In Lab Cindy Yadav MD CHEMISTRY ORDERABLES Performing Organization Address City/[facility] Co de Phone Number [facility] [place] [address] * (ABNORMAL) Basic Metabolic Panel (non-fasting) (10/23/2022 6:38 AM EDT) Glucose 103 65 - 199 mg/dL [facility] Comment:Diabetes: >=200 mg/d L plus symptoms Blood Urea Nitrogen 63(H) 8 - 18 mg/dL [facility] Creatinine 1.65(H) 0.70 - 1.20 mg/dL [facility] Sodium 131(L) 135 - 145 mmol/L [facility] Potassium 4.1 3.5 - 5.0 mmol/L [facility] Comment: Please note: ??Patients with WBC >100,000 may have falsely elevated Potassium levels. ??For accurate Potassium quantification in these patients send serum separator tube (gold top) for subsequent determinations. ??Contact the Clinical Chemistry Laboratory if there are any questions. Chloride 95(L) 98 - 107 mmol/L [facility] Carbon Dioxide 27 22 - 31 mmol/L [facility] Anion Gap 9 5 - 15 mmol/L [facility] Calcium 8.4(L) 8.5 - 10.5 mg/dL [facility] Est Glomerular Filtration Rate 34(L) >=60 mL/min/1. 73 m?? [facility] Comment: This patient's estimated GFR [...] and symptoms in addition to eGFR. Blood 10/23/2022 6:38 AM EDT 10/23/2022 6:48 AM EDT Narrative Resulting Agency Comment Spec In Lab Cindy Yadav MD CHEMISTRY ORDERABLES Performing Organization Address [facility]/ZIP Co de Phone Number [facility] [place] [address] * (ABNORMAL) Ferritin (10/23/2022 6:38 AM EDT) [facility] Ferritin 12,699(H) 30 - 400 ng/mL [facility] Comment: Pediatric reference ranges not verified at [facility], interpret with caution. Reference ranges for females greater than 50 years of age approach values for men, i.e., 30-400 ng/mL. Blood 10/23/2022 6:38 AM EDT 10/23/2022 6:48 AM EDT Narrative Resulting Agency Comment Spec In Lab Cindy Yadav MD CHEMISTRY ORDERABLES Performing Organization Address [facility] de Phone Number [facility] [place] [address] * Copper, serum (10/23/2022 6:38 AM EDT) [facility] Copper (OCTOBER) 151 77 - 206 mcg/dL [facility] Comment: ADDITIONAL INFORMATION This test was developed and its performance characteristics determined by [facility] in a manner consistent with CLIA requirements. This test has not been cleared or approved by the U.S. Food and Drug Administration. Test Performed by: [facility] - [address] [address] Big Data Hadoop Developer: Alex Cameron M.D. Ph.D.; CLIA# [id number] Blood 10/23/2022 6:38 AM EDT 10/25/2022 8:19 AM EDT Narrative Resulting Agency Comment Spec In Lab Cindy Yadav MD LAB SEND OUT ORDERAB LES Performing Organization Address [facility] Co de Phone Number [facility] [place] [address] * Folate, serum (10/23/2022 6:38 AM EDT) [facility] Folate 13.3 4.8 - 24.2 ng/mL [facility] Blood 10/23/2022 6:38 AM EDT 10/23/2022 6:48 AM EDT Narrative Resulting Agency Comment Spec In Lab Cindy Yadav MD CHEMISTRY ORDERABLES Performing Organization Address [facility] [place] [address] * (ABNORMAL) Vitamin B12 (10/23/2022 6:38 AM EDT) Vitamin B12 1,732(H) 232 - 1,245 pg/mL [facility] Blood 10/23/2022 6:38 AM EDT 10/23/2022 6:48 AM EDT Narrative Resulting Agency Comment Spec In Lab Cindy Yadav MD CHEMISTRY ORDERABLES Performing Organization Address [facility] [place] [place] [address] * Transfuse RBC (10/23/2022 6:04 AM EDT) Fuad Otero MD NURSING TREATMENT OR DERABLES - BLOOD ADMIN * Transfuse 1 unit platelets, apheresis (10/23/2022 3:55 AM EDT) Fuad Otero MD NURSING TREATMENT OR DERABLES - BLOOD ADMIN * Prepare RBC (10/23/2022 2:20 AM EDT) Dispensed? Yes [facility] Blood 10/23/2022 2:20 AM EDT 10/23/2022 2:17 AM EDT Fuad Otero MD BLOOD BANK PRODUCT O RDERABLES Performing Organization Address City/[facility] [place] [address] * Prepare Platelets, Apheresis (10/23/2022 1:45 AM EDT) Dispensed? Yes [facility] Blood 10/23/2022 1:45 AM EDT 10/23/2022 1:42 AM EDT Fuad Otero MD BLOOD BANK PRODUCT O RDERABLES Performing Organization Address City/[facility]/ZIP Co de Phone Number [facility] [place] [address] * Blood culture (10/23/2022 12:42 AM EDT) Blood Culture No growth at 5 days. [facility] Blood 10/23/2022 12:4 2 AM EDT 10/23/2022 2:09 AM EDT Comment:L wrist Narrative Resulting Agency Comment Spec In Lab Cindy Yadav MD MICROBIOLOGY - BLOOD ORDERABLES Performing Organization Address [facility] Co de Phone Number [facility] [place] [address] * (ABNORMAL) Urinalysis without microscopic (10/23/2022 12:40 AM EDT) Glucose, Urine Dipstick Negative Negative mg/dL [facility] Protein, Urine Dipstick 30(A) Negative mg/dL [facility] Bilirubin, Urine Dipstick Negative Negative mg/dL [facility] Comment: Clinical correlation required for positive Urine Bilirubin results as false positive may occur with some drugs and drug related products. If a false positive is suspected a serum total bilirubin should be considered if clinically indicated. Urobilinogen, Urine Dipstick Normal Normal mg/dL [facility] pH, Urn (dipstick) 5.5 5.0 - 8.0 [facility] Blood, Urine Dipstick Large(A) Negative mg/dL [facility] Ketone, Urine Dipstick Negative Negative mg/dL [facility] Nitrite, Urine Dipstick Negative Negative [facility] Leukocytes, Urine Dipstick Negative Negative mcL [facility] Appearance, Urine Dipstick Clear Clear [facility] Specific [place] Urine Automated 1.013 1.005 - 1.030 [facility] Color, Urine Dipstick Yellow Yellow [facility] Urine 10/23/2022 12:4 0 AM EDT 10/23/2022 12:59 AM EDT Narrative Resulting Agency Comment Spec In Lab Cindy Yadav MD URINE ORDERABLES [facility] [place] [address] * Scan, Peripheral Blood (10/23/2022 12:38 AM EDT) Plat estimate Decreased [facility] RBC Morphology Abnormal [facility] Hypochromia Moderate [facility] Ovalocytes 1-5 /HPF [facility] Blood 10/23/2022 12:3 8 AM EDT 10/23/2022 1:00 AM EDT Narrative Resulting Agency Comment Spec In Lab Joey Gutierres MD HEMATOLOGY ORDERABLE S Performing Organization Address City/[facility]/ZIP Co de Phone Number [facility] [place] [address] * (ABNORMAL) Hemogram (10/23/2022 12:38 AM EDT) [facility] White Blood Cell 2.6(L) 4.0 - 9.5 x10(3)/mc L [facility] Red Blood Cell 2.18(L) 4.00 - 5.21 x10(6)/mc L [facility] Hemoglobin 6.4(L) 11.7 - 15.5 g/dL [facility] Hematocrit 20.4(L) 35.7 - 45.8 % [facility] Mean Cell Volume 93.6 82.6 - 94.4 fL [facility] Mean Cell Hemoglobin 29.4 27.1 - 32.0 pg [facility] Mean Cell Hemoglobin Concentration 31.4(L) 31.7 - 35.0 g/dL [facility] Platelet 5(Critica l) 145 - 357 x10(3)/mc L [facility] Comment: This result has been called to SYDNEY PETERSON by Carol Enciso on 10 23 2022 at 0132, and has been read back. RDW Standard Deviation 57.6(H) 37.0 - 46.0 fL [facility] RDW coefficient of variation 17.0(H) 11.5 - 14.1 % [facility] Mean Platelet Volume 9.8 7.6 - 12.9 fL [facility] NRBC% auto 0.0 % [facility] NRBC Absolute 0.000 0.000 - 0.000 x10(3)/mc L [facility] Blood 10/23/2022 12:3 8 AM EDT 10/23/2022 1:00 AM EDT Narrative Resulting Agency Comment Spec In Lab Fuad Otero MD HEMATOLOGY ORDERABLE S Performing Organization Address City/[facility]/ZIP Co de Phone Number [facility] [place] [address] * Type and Screen Validity (10/23/2022 12:01 AM EDT) T&S only valid at [facility] Comment:This Type and Screen result is only valid at the [facility] Blood 10/23/2022 12:0 1 AM EDT 10/23/2022 12:13 AM EDT Narrative Resulting Agency Comment Spec In Lab Kyrie Douglas MD BLOOD BANK LAB ORDER DOM Performing Organization Address City/[facility]/ZIP Co de Phone Number [facility] [place] [address] * ABORH Recheck Status (10/23/2022 12:01 AM EDT) ABORH Recheck Order Order Placed [facility] ABORH Type Recheck Complete [facility] Blood 10/23/2022 12:0 1 AM EDT 10/23/2022 12:13 AM EDT Narrative Resulting Agency Comment Spec In Lab Kyrie Douglas MD BLOOD BANK LAB ORDER DOM Performing Organization Address City/[facility]/ZIP Co de Phone Number [facility] [place] [address] * Antibody screen (10/23/2022 12:01 AM EDT) Ab Screen Interp Negative [facility] Expires at 0503 on: 10/26/2022 [facility] Blood 10/23/2022 12:0 1 AM EDT 10/23/2022 12:13 AM EDT Narrative Resulting Agency Comment Spec In Lab Kyrie Douglas MD BLOOD BANK LAB ORDER DOM Performing Organization Address City/[facility] Co de Phone Number [facility] [place] [address] * ABO/Rh Typing (10/23/2022 12:01 AM EDT) ABORH Type A Pos [facility] Blood 10/23/2022 12:0 1 AM EDT 10/23/2022 12:13 AM EDT Narrative Resulting Agency Comment Spec In Lab Kyrie Douglas MD BLOOD BANK LAB ORDER DOM Performing Organization Address [facility] Co de Phone Number [facility] [place] [address] * SCAN DOC: LAB (10/23/2022 12:00 AM EDT) Narrative 10/23/2022 12:00 AM EDT Ordered by an unspecified provider. Scanning Provider MEDIA MGR SCAN EXT O RDR/RSLT * Magnesium (10/22/2022 11:10 PM EDT) Pathologist [facility] Magnesium 0.92 0.69 - 1.07 mmol/L [facility] Blood 10/22/2022 11:1 0 PM EDT 10/22/2022 11:20 PM EDT Narrative Resulting Agency Comment Spec In Lab Cindy Yadav MD CHEMISTRY ORDERABLES Performing Organization Address [facility] Co de Phone Number [facility] [place] [address] * (ABNORMAL) Basic Metabolic Panel (non-fasting) (10/22/2022 11:10 PM EDT) Glucose 101 65 - 199 mg/dL [facility] Comment:Diabetes: >=200 mg/d L plus symptoms Blood Urea Nitrogen 58(H) 8 - 18 mg/dL [facility] Creatinine 1.69(H) 0.70 - 1.20 mg/dL [facility] Sodium 132(L) 135 - 145 mmol/L [facility] Potassium 4.2 3.5 - 5.0 mmol/L [facility] Comment: Please note: ??Patients with WBC >100,000 may have falsely elevated Potassium levels. ??For accurate Potassium quantification in these patients send serum separator tube (gold top) for subsequent determinations. ??Contact the Clinical Chemistry Laboratory if there are any questions. Chloride 94(L) 98 - 107 mmol/L [facility] Carbon Dioxide 27 22 - 31 mmol/L [facility] Anion Gap 11 5 - 15 mmol/L [facility] Calcium 8.1(L) 8.5 - 10.5 mg/dL [facility] Est Glomerular Filtration Rate 33(L) >=60 mL/min/1. 73 m?? [facility] Comment: This patient's estimated GFR [...] and symptoms in addition to eGFR. Blood 10/22/2022 11:1 0 PM EDT 10/22/2022 11:20 PM EDT Narrative Resulting Agency Comment Spec In Lab Cindy Yadav MD CHEMISTRY ORDERABLES [facility] [place] [address] * Hepatitis C Antibody (10/22/2022 11:10 PM EDT) Hepatitis C Antibody Negative Negative [facility] Blood 10/22/2022 11:1 0 PM EDT 10/22/2022 11:20 PM EDT Narrative Resulting Agency Comment Spec In Lab Cindy Yadav MD CHEMISTRY ORDERABLES Performing Organization Address City/[facility]/ZIP Co de Phone Number [facility] [place] [address] * HIV Screen, 4th Generation ([facility]/CGP/APD/NLH) (10/22/2022 11:10 PM EDT) HIV Ab/Ag Screen Negative Negative [facility] Comment: This 4th Generation HIV test screens for the presence of the HIV-1 p24 antigen as well as antibodies reactive against HIV-1 and HIV-2. A negative screen does not rule out an acute HIV infection. If acute HIV infection is suspected, testing should be repeated in 2 - 3 weeks or HIV nucleic acid testing performed. HIV Comment Low Risk of HIV Infection [facility] Blood 10/22/2022 11:1 0 PM EDT 10/22/2022 11:20 PM EDT Narrative Resulting Agency Comment Spec In Lab Cindy Yadav MD CHEMISTRY ORDERABLES Performing Organization Address [facility] Co de Phone Number [facility] [place] [address] * (ABNORMAL) Haptoglobin (10/22/2022 11:10 PM EDT) Haptoglobin 230(H) 30 - 200 mg/dL [facility] Comment: Haptoglobin concentrations in newborns is low to undetectable; however, adult concentrations are usually attained by 4 months of age. ??No sex-related differences for haptoglobin have been detected. Blood 10/22/2022 11:1 0 PM EDT 10/22/2022 11:20 PM EDT Narrative Resulting Agency Comment Spec In Lab Cindy Yadav MD CHEMISTRY ORDERABLES Performing Organization Address City/[facility]/ZIP Co de Phone Number [facility] [place] [address] * Lactate Dehydrogenase (10/22/2022 11:10 PM EDT) Lactate Dehydrogenase 220 110 - 220 unit/L [facility] Blood 10/22/2022 11:1 0 PM EDT 10/22/2022 11:20 PM EDT Narrative Resulting Agency Comment Spec In Lab Cindy Yadav MD CHEMISTRY ORDERABLES Performing Organization Address City/[facility] Co de Phone Number [facility] [place] [address] * (ABNORMAL) D-Dimer, Quantitative (10/22/2022 11:10 PM EDT) D-Dimer 12,895(H) 0 - 500 FEU ng/ml [facility] Comment: The D-Dimer assay is used to aid in the diagnosis of deep vein thrombosis and pulmonary embolism. A normal D-Dimer result (less than 500 FEU ng/ml) has a negative predictive value of approximately 95% for the exclusion of acute PE and DVT when there is low to moderate pretest probability. To use age adjusted cutoff: Age x 10 ng/ml. Blood 10/22/2022 11:1 0 PM EDT 10/22/2022 11:20 PM EDT Narrative Resulting Agency Comment Spec In Lab Cindy Yadav MD HEMATOLOGY ORDERABLE S Performing Organization Address [facility] Co de Phone Number [facility] [place] [address] * Thrombin time (10/22/2022 11:10 PM EDT) Thrombin Time 17 10 - 17 sec [facility] Comment: A prolongation in the thrombin time (>20 seconds) may be indicative of hypofibrinogenemia or dysfibrinogenemia. The thrombin time will be prolonged, often markedly so, by the presence of heparin or direct thrombin inhibitors (argatroban, bivalirudin, dabigatran) in the specimen. Blood 10/22/2022 11:1 0 PM EDT 10/22/2022 11:20 PM EDT Narrative Resulting Agency Comment Spec In Lab Cindy Yadav MD HEMATOLOGY ORDERABLE S Performing Organization Address City/[facility] Co de Phone Number [facility] [place] [address] * (ABNORMAL) Fibrinogen (10/22/2022 11:10 PM EDT) Fibrinogen 578(H) 200 - 393 mg/dL [facility] Comment: A fibrinogen level >100 mg/dL is adequate for hemostasis in most patients without underlying bleeding disorders. Blood 10/22/2022 11:1 0 PM EDT 10/22/2022 11:20 PM EDT Narrative Resulting Agency Comment Spec In Lab Cindy Yadav MD HEMATOLOGY ORDERABLE S Performing Organization Address [facility] Co de Phone Number [facility] [place] [address] * APTT (10/22/2022 11:10 PM EDT) Partial Thromboplastin Time 35 25 - 37 sec [facility] Comment: The PTT is NOT appropriate for heparin monitoring. Use the Anti-Xa level for heparin monitoring (HEP UFH) or LMWH monitoring (HEP LMW). A PTT less than 37 seconds generally indicates adequate hemostasis. Blood 10/22/2022 11:1 0 PM EDT 10/22/2022 11:20 PM EDT Narrative Resulting Agency Comment Spec In Lab Cindy Yadav MD HEMATOLOGY ORDERABLE S Performing Organization Address [facility] Co de Phone Number [facility] [place] [address] * (ABNORMAL) Prothrombin Time (10/22/2022 11:10 PM EDT) Prothrombin Time 20.5(H) 9.4 - 12.5 sec [facility] International Normalization Ratio 1.8 [facility] Comment: An INR <2.0 indicates adequate procoagulant activity for hemostasis in most patients without underlying bleeding disorders, though the INR may not adequately reflect hemostatic capacity in patients with liver disease and synthetic impairment. The recommended target INR range for therapeutic anticoagulation is 2.0 ? 3.0 for most applications, though lower and higher ranges may be appropriate depending on clinical circumstances. Blood 10/22/2022 11:1 0 PM EDT 10/22/2022 11:20 PM EDT Narrative Resulting Agency Comment Spec In Lab Cindy Yadav MD HEMATOLOGY ORDERABLE S Performing Organization Address City/[facility]/ZIP Co de Phone Number [facility] [place] [address] * (ABNORMAL) Hepatic Function Panel (10/22/2022 11:10 PM EDT) Protein, Total 6.8 6.1 - 8.0 g/dL [facility] Albumin 2.6(L) 3.2 - 5.2 g/dL [facility] Aspartate Aminotransferase 23 0 - 30 unit/L [facility] Alanine Aminotransferase 6 0 - 30 unit/L [facility] Alkaline Phosphatase 49 35 - 105 unit/L [facility] Bilirubin, Total 1.5(H) 0.2 - 1.3 mg/dL [facility] Bilirubin, Direct 0.7(H) 0.0 - 0.3 mg/dL [facility] Blood 10/22/2022 11:1 0 PM EDT 10/22/2022 11:20 PM EDT Narrative Resulting Agency Comment Spec In Lab Cindy Yadav MD CHEMISTRY ORDERABLES Performing Organization Address City/[facility] Co de Phone Number [facility] [place] [address] * Blood culture (10/22/2022 11:10 PM EDT) Blood Culture No growth at 5 days. [facility] Blood 10/22/2022 11:1 0 PM EDT 10/23/2022 12:30 AM EDT Comment:RFA Narrative Resulting Agency Comment Spec In Lab Cindy Yadav MD MICROBIOLOGY - BLOOD ORDERABLES Performing Organization Address City/[facility]/ZIP Co de Phone Number [facility] [place] [address] * POCT Glucose (10/22/2022 9:55 PM EDT) Glucose, POC 109 65 - 199 mg/dL [facility] Comment: Supplemental ranges: <140 mg/dL before meals <180 mg/dL all other times of the day Blood 10/22/2022 9:55 PM EDT 10/22/2022 9:55 PM EDT Cindy Yadav MD [place] [address] documented in this encounter Visit Diagnoses Diagnosis Platelet disorder- Primary Qualitative platelet defects Pleural effusion, bilateral Unspecified pleural effusion Atrial fibrillation, unspecified type Thymic carcinoma Malignant neoplasm of thymus Aortic valve stenosis, etiology of cardiac valve disease unspecified Thymic carcinoma Malignant neoplasm of thymus documented in this encounter Admitting Diagnoses Diagnosis Platelet disorder Qualitative platelet defects documented in this encounter Administered Medications Inactive Administered Medications - up to 3 most recent administrations Medication Order MAR Action Action Date Dose Rate Site acetaminophen (Tylenol) tablet 500 mg 500 mg, Oral, EVERY 6 HOURS PRN, Starting on 10/23/22 at 0131, Until 11/07/22 at 1414, Pain, Maximum dose of acetaminophen is 4,000 mg from all sources in 24 hours. When ordered for pain, acetaminophen should be given even when other ordered pain medications are indicated. , Routine Given 11/06/2022 8:19 PM EDT 500 mg Given 11/06/2022 8:48 AM EDT 500 mg Given 11/05/2022 8:04 PM EDT 500 mg acetaZOLAMIDE (Diamox) tablet 250 mg 250 mg, Oral, 2 TIMES DAILY, First dose on Ivette 11/04/22 at 1000, Until Discontinued, Routine Given 11/07/2022 9:31 AM EDT 250 mg Given 11/06/2022 8:19 PM EDT 250 mg Given 11/06/2022 8:48 AM EDT 250 mg albuteroL (Proventil, Ventolin) (2.5 mg/3 mL) (0.083 %) nebulizer solution 2.5 mg 2.5 mg, Nebulization, EVERY 6 HOURS PRN, Starting on 10/25/22 at 1148, Until 11/07/22 at 1414, Wheezing, Routine Given 10/26/2022 10:20 AM EDT 2.5 mg Given 10/25/2022 12:05 PM EDT 2.5 mg aMILoride (Midamor) tablet 5 mg 5 mg, Oral, ONCE, 1 dose, On Tue11/01/22 at 1000, Routine Given 11/01/2022 10:39 AM EDT 5 mg apixaban (Eliquis) tablet 5 mg 5 mg, Oral, 2 TIMES DAILY, First dose on Tue10/29/22 at 0900, Until Discontinued, Anticoagulant, Routine, Restricted anticoagulant, choose the most appropriate response: Continuation of ongoing therapy Given 11/01/2022 8:29 AM EDT 5 mg Given 10/31/2022 8:09 PM EDT 5 mg Given 10/31/2022 8:46 AM EDT 5 mg apixaban (Eliquis) tablet 5 mg 5 mg, Oral, 2 TIMES DAILY, First dose on Tue11/02/22 at 2100, Until Discontinued, Anticoagulant, Routine, Restricted anticoagulant, choose the most appropriate response: Approved indication of non-valvular atrial fibrillation Given 11/07/2022 9:26 AM EDT 5 mg Given 11/06/2022 8:19 PM EDT 5 mg Given 11/06/2022 8:48 AM EDT 5 mg carboxymethylcellulose (Refresh Plus) 0.5 % ophthalmic drops 1 drop 1 drop, Both Eyes, 3 TIMES DAILY PRN, Starting on Tue10/27/22 at 2347, Until Tue11/07/22 at 1414, Dry Eyes, Routine Given 10/28/2022 1:53 AM EDT 1 drop dexAMETHasone (Decadron) tablet 40 mg 40 mg, Oral, DAILY, 4 doses, First dose on Tue10/23/22 at 1615, Last dose on Tue10/26/22 at 0900, Routine Given 10/26/2022 9:55 AM EDT 40 mg Given 10/25/2022 9:21 AM EDT 40 mg Given 10/24/2022 8:53 AM EDT 40 mg dilTIAZem (Cardizem) tablet 45 mg 45 mg, Oral, EVERY 6 HOURS SCHEDULED, First dose on Tue10/23/22 at 0000, Until Discontinued, Routine Given 10/29/2022 6:18 AM EDT 45 mg Given 10/29/2022 12:28 AM EDT 45 mg Given 10/28/2022 6:29 PM EDT 45 mg dilTIAZem (Cardizem) tablet 90 mg 90 mg, Oral, 2 TIMES DAILY, First dose on Tue10/29/22 at 1800, Until Discontinued, Routine Given 10/29/2022 5:31 PM EDT 90 mg dilTIAZem CD (Cardizem CD) capsule 180 mg 180 mg, Oral, DAILY, First dose on 10/30/22 at 0900, Until Discontinued, DO NOT CRUSH OR OPEN, Routine Given 11/07/2022 9:26 AM EDT 180 mg Given 11/06/2022 8:48 AM EDT 180 mg Given 11/05/2022 9:46 AM EDT 180 mg furosemide (Lasix) (10 mg/mL) injection 40 mg 40 mg, Intravenous, ONCE, 1 dose, On 10/30/22 at 0845 Given 10/30/2022 9:57 AM EDT 40 mg furosemide (Lasix) (10 mg/mL) injection 80 mg 80 mg, Intravenous, ONCE, 1 dose, On Ivette 10/28/22 at 0900 Given 10/28/2022 10:34 AM EDT 80 mg furosemide (Lasix) (10 mg/mL) injection 80 mg 80 mg, Intravenous, ONCE, 1 dose, On Tue10/29/22 at 0845 Given 10/29/2022 8:49 AM EDT 80 mg furosemide (Lasix) 160 mg in sodium chloride 0.9% 50 mL infusion 160 mg, Intravenous, ONCE, 1 dose, On Tue10/27/22 at 1015, Start rate at 75 mL/hr until completion. (4 mg/min) Maximum rate of 4 mg/min. New Bag 10/27/2022 10:37 AM EDT 160 mg 75 mL/hr furosemide (Lasix) tablet 20 mg 20 mg, Oral, ONCE, 1 dose, On 11/01/22 at 1000, Routine Given 11/01/2022 10:39 AM EDT 20 mg furosemide (Lasix) tablet 40 mg 40 mg, Oral, ONCE, 1 dose, On 10/31/22 at 1145, Routine Given 10/31/2022 11:22 AM EDT 40 mg furosemide (Lasix) tablet 40 mg 40 mg, Oral, DAILY, First dose on Tue11/04/22 at 1500, Until Discontinued, Routine Given 11/07/2022 9:26 AM EDT 40 mg Given 11/06/2022 8:47 AM EDT 40 mg Given 11/05/2022 9:46 AM EDT 40 mg furosemide (Lasix) tablet 80 mg 80 mg, Oral, ONCE, 1 dose, On Tue10/24/22 at 1015, Routine Given 10/24/2022 10:03 AM EDT 80 mg furosemide (Lasix) tablet 80 mg 80 mg, Oral, ONCE, 1 dose, On Tue10/25/22 at 0845, Routine Given 10/25/2022 9:38 AM EDT 80 mg furosemide (Lasix) tablet 80 mg 80 mg, Oral, ONCE, 1 dose, On Tue10/26/22 at 0845, Routine Given 10/26/2022 9:56 AM EDT 80 mg furosemide (Lasix) tablet 80 mg 80 mg, Oral, ONCE, 1 dose, On Tue10/26/22 at 1500, Routine Given 10/26/2022 3:54 PM EDT 80 mg heparin (pf) (porcine) (100 units/mL) flush 5 mL syringe 500 Units 500 Units, Intercatheter, ONCE, 1 dose, On Tue10/29/22 at 1630, Routine Given 10/29/2022 4:47 PM EDT 500 Units heparin (pf) (porcine) (100 units/mL) flush 5 mL syringe 500 Units 500 Units (5 mL), Intravenous, DAILY PRN, 1 dose, Starting on Tue11/05/22 at 1449, Until Tue11/05/22 at 1519, Line Care, Terminal Flush for de-accessing of Implantable Port, Routine Given 11/05/2022 3:19 PM EDT 500 Units iohexoL (Omnipaque) (350 mg/mL) solution 0-200 mL 0-200 mL, Intravenous, ONCE PRN, 1 dose, Starting on Tue11/05/22 at 1622, Until Tue11/05/22 at 1634, Per Protocol, Warning Vesicant/Irritant Medication , Radiology Contrast, Routine Given 11/05/2022 4:34 PM EDT 109 mLs levothyroxine (Synthroid) tablet 150 mcg 150 mcg, Oral, DAILY, First dose on Tue10/23/22 at 0600, Until Discontinued, Routine Given 11/07/2022 5:46 AM EDT 150 mcg Given 11/06/2022 5:34 AM EDT 150 mcg Given 11/05/2022 6:08 AM EDT 150 mcg lidocaine (Lidoderm) 5% patch 1 patch 1 patch, Transdermal, Administer over 12 Hours, EVERY 24 HOURS, First dose on 11/06/22 at 1345, Until Discontinued, Apply patch(es) for 12 hours, and then remove for 12 hours. Please apply over left knee., Routine Patch Applied 11/06/2022 1:37 PM EDT 1 patch 20-Other (document in comment section) lidocaine (Xylocaine) 1% (10 mg/mL) injection 10 mg 10 mg, Subcutaneous, ONCE, 1 dose, On Ivette 10/28/22 at 1715, For use in Interventional Radiology (IR) only for procedure with direct provider supervision and verbal order., Angio/IR (Intra-Procedure), Routine Given 10/28/2022 4:47 PM EDT 10 mg 20-Other (document in comment section) lidocaine (Xylocaine) 1% (10 mg/mL) injection 10 mg 10 mg, Subcutaneous, ONCE, 1 dose, On 11/02/22 at 1030, For use in Interventional Radiology (IR) only for procedure with direct provider supervision and verbal order., Day of Surgery (Day of Procedure), Routine Given 11/02/2022 10:08 AM EDT 10 mg lidocaine (Xylocaine) 1% (10 mg/mL) injection 3 mg 3 mg (0.3 mL), Subcutaneous, ONCE PRN, 1 dose, Starting on 10/23/22 at 0040, Until 11/07/22 at 1414, for discomfort with PIV insertion, Routine loratadine (Claritin) tablet 5 mg 5 mg, Oral, DAILY PRN, Starting on 10/25/22 at 1156, Until 11/07/22 at 1414, For seasonal allergies, Routine Given 10/25/2022 12:07 PM EDT 5 mg magnesium sulfate 2 g in sterile water 50 mL infusion 2 g, Intravenous, ONCE, 1 dose, On Ivette 10/28/22 at 0915, Administer over 120 Minutes New Bag 10/28/2022 10:36 AM EDT 2 g 25 mL/hr magnesium sulfate 2 g in sterile water 50 mL infusion 2 g, Intravenous, ONCE, 1 dose, On Tue10/30/22 at 0845, Administer over 120 Minutes New Bag 10/30/2022 9:59 AM EDT 2 g 25 mL/hr magnesium sulfate 2 g in sterile water 50 mL infusion 2 g, Intravenous, EVERY 2 HOURS, 2 doses, First dose on Tue11/02/22 at 0830, Last dose on Tue11/02/22 at 1030, Administer over 120 Minutes New Bag 11/02/2022 10:30 AM EDT 2 g 25 mL/hr New Bag 11/02/2022 8:49 AM EDT 2 g 25 mL/hr magnesium sulfate 2 g in sterile water 50 mL infusion 2 g, Intravenous, ONCE, 1 dose, On Tue11/05/22 at 0915, Administer over 120 Minutes New Bag 11/05/2022 9:45 AM EDT 2 g 25 mL/hr magnesium sulfate 2 g in sterile water 50 mL infusion 2 g, Intravenous, ONCE, 1 dose, On Tue11/07/22 at 0945, Administer over 120 Minutes New Bag 11/07/2022 9:25 AM EDT 2 g 25 mL/hr melatonin tablet 6 mg 6 mg, Oral, NIGHTLY, First dose on Tue10/25/22 at 2100, Until Discontinued, Routine Given 11/06/2022 8:19 PM EDT 6 mg Given 11/05/2022 8:45 PM EDT 6 mg Given 11/04/2022 9:10 PM EDT 6 mg ondansetron (pf) (Zofran) (2 mg/mL) injection 4 mg 4 mg, Intravenous, EVERY 8 HOURS PRN, Starting on Tue10/30/22 at 2221, Until Tue11/07/22 at 1414, Nausea Given 10/30/2022 10:35 PM EDT 4 mg pantoprazole (Protonix) injection 40 mg 40 mg, Intravenous, 2 TIMES DAILY, First dose on Tue10/23/22 at 0130, Until Discontinued, Reconstitute with 10 mL of normal saline to a concentration of 4 mg/mL and inject slowly over 2 minutes. Reconstitute with 10 mL of normal saline to a concentration of 4 mg/mL and inject slowly over 2 minutes., Routine Given 10/24/2022 8:53 AM EDT 4 0 mg Given 10/23/2022 8:20 PM EDT 40 mg Given 10/23/2022 9:17 AM EDT 40 mg pantoprazole EC (Protonix) tablet 40 mg 40 mg, Oral, 2 TIMES DAILY, First dose on Tue10/24/22 at 1030, Until Discontinued, DO NOT CRUSH OR OPEN Given 10/25/2022 8:20 PM EDT 40 mg Given 10/25/2022 9:22 AM EDT 40 mg Given 10/24/2022 8:13 PM EDT 40 mg pantoprazole EC (Protonix) tablet 40 mg 40 mg, Oral, DAILY, First dose (after last modification) on Tue10/26/22 at 1030, Until Discontinued, DO NOT CRUSH OR OPEN Given 11/02/2022 8:52 AM EDT 40 mg Given 11/01/2022 8:29 AM EDT 40 mg Given 10/31/2022 8:46 AM EDT 40 mg PARoxetine (Paxil) tablet 20 mg 20 mg, Oral, EVERY MORNING, First dose on Tue10/23/22 at 0900, Until Discontinued, DO NOT SPLIT, CRUSH OR OPEN, Routine Given 11/07/2022 9:26 AM EDT 20 mg Given 11/06/2022 8:47 AM EDT 20 mg Given 11/05/2022 9:46 AM EDT 20 mg polyethylene glycoL (Miralax) packet 17 g 17 g, Oral, 2 TIMES DAILY, First dose on Tue10/27/22 at 0900, Until Discontinued, Routine Given 11/05/2022 8:44 PM EDT 17 g Given 11/05/2022 9:48 AM EDT 17 g Given 11/04/2022 9:10 PM EDT 17 g potassium bicarbonate (Effer-K) effervescent tablet 20 mEq 20 mEq, Oral, ONCE, On Tue11/01/22 at 0815, 1 dose, Do not crush or chew, tablet is meant for dissolution in liquid prior to consumption. 10 mEq tablets: dissolve in 60 - 90 mL of cold water (flavored tablets) or juice (unflavored tablets) 20 mEq tablets: dissolve in 90 - 120 mL of cold water (flavored tablets) or juice (unflavored tablets) Given 11/01/2022 11:25 AM EDT 20 mEq potassium bicarbonate (Effer-K) effervescent tablet 40 mEq 40 mEq, Oral, ONCE, On 10/31/22 at 0345, 1 dose, DO NOT GIVE UNDILUTED MEDICATION TO PATIENT. Dissolve tablet completely in 3-4 ounces of cold water or juice. May further dilute if adverse GI effects occur. Given 10/31/2022 4:34 AM EDT 40 mEq potassium bicarbonate (Effer-K) effervescent tablet 40 mEq 40 mEq, Oral, ONCE, On Tue11/05/22 at 0845, 1 dose, Do not crush or chew, tablet is meant for dissolution in liquid prior to consumption. 10 mEq tablets: dissolve in 60 - 90 mL of cold water (flavored tablets) or juice (unflavored tablets) 20 mEq tablets: dissolve in 90 - 120 mL of cold water (flavored tablets) or juice (unflavored tablets) Given 11/05/2022 11:32 AM EDT 40 mEq potassium chloride 10 mEq in sterile water 100 mL infusion 10 mEq, Intravenous, EVERY 2 HOURS, 3 doses, First dose on 10/31/22 at 0345, Last dose on Tue10/31/22 at 0745, Administer over 60 Minutes, Warning Vesicant/Irritant Medication New Bag 10/31/2022 7:01 AM EDT 10 mEq 100 mL/hr New Bag 10/31/2022 5:04 AM EDT 10 mEq 100 mL/hr New Bag 10/31/2022 3:21 AM EDT 10 mEq 100 mL/hr potassium chloride ER (Klor-Con M) crystal tablet 40 mEq 40 mEq, Oral, ONCE, 1 dose, On Ivette 10/28/22 at 0915, potassium chloride ER particle/crystal tablets (Klor-Con M) may be broken in half and each half swallowed separately. Tablets can be dissolved in ~4 ounces of water; allow ~2 minutes to dissolve, stir well and drink immediately. Do not crush, chew, or suck on tablet., Routine Given 10/28/2022 10:38 AM EDT 40 mEq potassium chloride ER (Klor-Con M) crystal tablet 40 mEq 40 mEq, Oral, ONCE, 1 dose, On 10/30/22 at 0815, potassium chloride ER particle/crystal tablets (Klor-Con M) may be broken in half and each half swallowed separately. Tablets can be dissolved in ~4 ounces of water; allow ~2 minutes to dissolve, stir well and drink immediately. Do not crush, chew, or suck on tablet., Routine Given 10/30/2022 9:56 AM EDT 40 mEq potassium chloride ER (Klor-Con M) crystal tablet 40 mEq 40 mEq, Oral, ONCE, 1 dose, On Tue10/31/22 at 1615, potassium chloride ER particle/crystal tablets (Klor-Con M) may be broken in half and each half swallowed separately. Tablets can be dissolved in ~4 ounces of water; allow ~2 minutes to dissolve, stir well and drink immediately. Do not crush, chew, or suck on tablet., Routine Given 10/31/2022 4:20 PM EDT 40 mEq potassium chloride ER (Klor-Con M) crystal tablet 40 mEq 40 mEq, Oral, ONCE, 1 dose, On Tu11/02/22 at 0830, potassium chloride ER particle/crystal tablets (Klor-Con M) may be broken in half and each half swallowed separately. Tablets can be dissolved in ~4 ounces of water; allow ~2 minutes to dissolve, stir well and drink immediately. Do not crush, chew, or suck on tablet., Routine Given 11/02/2022 8:52 AM EDT 40 mEq potassium chloride ER (Klor-Con M) crystal tablet 40 mEq 40 mEq, Oral, ONCE, 1 dose, On 11/05/22 at 0515, 20 mEq tablet may be dissolved in water for administration potassium chloride ER particle/crystal tablets (Klor-Con M) may be broken in half and each half swallowed separately. Tablets can be dissolved in ~4 ounces of water; allow ~2 minutes to dissolve, stir well and drink immediately. Do not crush, chew, or suck on tablet., Routine Given 11/05/2022 6:07 AM EDT 40 mEq potassium chloride ER (Klor-Con M) crystal tablet 40 mEq 40 mEq, Oral, ONCE, 1 dose, On 11/06/22 at 0615, potassium chloride ER particle/crystal tablets (Klor-Con M) may be broken in half and each half swallowed separately. Tablets can be dissolved in ~4 ounces of water; allow ~2 minutes to dissolve, stir well and drink immediately. Do not crush, chew, or suck on tablet., Routine Given 11/06/2022 5:34 AM EDT 40 mEq potassium chloride ER (Klor-Con M) crystal tablet 40 mEq 40 mEq, Oral, EVERY HOUR, 2 doses, First dose on 11/06/22 at 1000, Last dose on 11/06/22 at 1100, Please give second dose right before patient discharges potassium chloride ER particle/crystal tablets (Klor-Con M) may be broken in half and each half swallowed separately. Tablets can be dissolved in ~4 ounces of water; allow ~2 minutes to dissolve, stir well and drink immediately. Do not crush, chew, or suck on tablet., Routine Given 11/06/2022 11:57 AM EDT 40 mEq Given 11/06/2022 9:37 AM EDT 40 mEq potassium chloride ER (Klor-Con M) crystal tablet 40 mEq 40 mEq, Oral, EVERY 4 HOURS, 2 doses, First dose on 11/07/22 at 0945, Last dose on Tue11/07/22 at 1345, potassium chloride ER particle/crystal tablets (Klor-Con M) may be broken in half and each half swallowed separately. Tablets can be dissolved in ~4 ounces of water; allow ~2 minutes to dissolve, stir well and drink immediately. Do not crush, chew, or suck on tablet., Routine Given 11/07/2022 9:26 AM EDT 40 mEq senna-docusate (Pericolace) 8.6-50 mg per tablet 2 tablet 2 tablet, Oral, 2 TIMES DAILY, First dose on Tue10/27/22 at 0900, Until Discontinued, Routine Given 11/05/2022 8:45 PM EDT 2 tablets Given 11/05/2022 9:46 AM EDT 2 tablets Given 11/04/2022 9:10 PM EDT 2 tablets sodium chloride (Mountrail) 0.65 % nasal spray 1 spray 1 spray, Each Nare, 2 TIMES DAILY PRN, Starting on Tue10/26/22 at 1154, Until 11/07/22 at 1414, Congestion, Routine sodium chloride 0.9 % (flush) (BD PosiFlush Normal Saline 0.9) flush 5 mL 5 mL, Intravenous, 2 TIMES DAILY, First dose on 10/23/22 at 0130, Until Discontinued, Routine Given 11/07/2022 9:32 AM EDT 5 mLs Given 11/06/2022 8:21 PM EDT 5 mLs Given 11/06/2022 8:49 AM EDT 5 mLs sodium chloride 0.9 % (flush) (BD PosiFlush Normal Saline 0.9) flush 5-20 mL 5-20 mL, Intravenous, EVERY 1 MIN PRN, Starting on 10/23/22 at 0040, Until 11/07/22 at 1414, flush, Flush pertains to all indwelling lines. Flush per protocol found in the job aid using the link provided on this medication record., Routine triamcinolone (Kenalog) 0.1 % cream Topical (Top), 2 TIMES DAILY, First dose on 10/25/22 at 1445, Until Discontinued, Application Site: Bilateral lower legs. For itching and crusting. Given 11/07/2022 9:33 AM EDT Given 11/06/2022 8:22 PM EDT Given 11/06/2022 8:51 AM EDT documented in this encounter Active and Recently Administered Medications Times are shown in EDT. Scheduled Medication Order 11/05/2022 11/06/2022 11/07/2022 acetaZOLAMIDE (Diamox) tablet 250 mg 250 mg, Oral, 2 TIMES DAILY, First dose on Ivette 11/04/22 at 1000, Until Discontinued, Routine 0946 (Given - Provider: Niru Archer RN)2044 (Given - Provider: Shelby Blackmon RN) 0848 (Given - Provider: Niru Archer RN)2018 (Given - Provider: Shelby Blackmon RN) 0931 (Given - Provider: Niru Archer RN) apixaban (Eliquis) tablet 5 mg 5 mg, Oral, 2 TIMES DAILY, First dose on Tue11/02/22 at 2100, Until Discontinued, Anticoagulant, Routine, Restricted anticoagulant, choose the most appropriate response: Approved indication of non-valvular atrial fibrillation 0946 (Given - Provider: Niru Archer RN)2044 (Given - Provider: Shelby Blackmon RN) 0848 (Given - Provider: Niru Archer RN)2019 (Given - Provider: Shelby Blackmon RN) 09 (Given - Provider: Niru Archer RN) dilTIAZem CD (Cardizem CD) capsule 180 mg 180 mg, Oral, DAILY, First dose on 10/30/22 at 0900, Until Discontinued, DO NOT CRUSH OR OPEN, Routine 0946 (Given - Provider: Niru Archer RN) 0848 (Given - Provider: Niru Archer RN) 09 (Given - Provider: Niru Archer RN) furosemide (Lasix) tablet 40 mg 40 mg, Oral, DAILY, First dose on Ivette 11/04/22 at 1500, Until Discontinued, Routine 0946 (Given - Provider: Niru Archer RN) 0847 (Given - Provider: Niru Archer RN) 09 (Given - Provider: Niru Archer RN) levothyroxine (Synthroid) tablet 150 mcg 150 mcg, Oral, DAILY, First dose on 10/23/22 at 0600, Until Discontinued, Routine 0608 (Given - Provider: Randall Sethi RN) 0534 (Given - Provider: Shelby Blackmon RN) 0546 (Given - Provider: Shelby Blackmon RN) lidocaine (Lidoderm) 5% patch 1 patch 1 patch, Transdermal, Administer over 12 Hours, EVERY 24 HOURS, First dose on 11/06/22 at 1345, Until Discontinued, Apply patch(es) for 12 hours, and then remove for 12 hours. Please apply over left knee., Routine 1337 (Patch Applied - Provider: Niru Archer RN - Comment: left knee) 0137 (Patch Removed - Provider: Shelby Blackmon RN) magnesium sulfate 2 g in sterile water 50 mL infusion (COMPLETED) 2 g, Intravenous, ONCE, 1 dose, On Tue11/05/22 at 0915, Administer over 120 Minutes 0945 (New Bag - Provider: Niru Archer RN)1145 (Stopped - Provider: Niru Archer RN) magnesium sulfate 2 g in sterile water 50 mL infusion (COMPLETED) 2 g, Intravenous, ONCE, 1 dose, On Tue11/07/22 at 0945, Administer over 120 Minutes 0925 (New Bag - Provider: Niru Archer RN)1125 (Stopped - Provider: Niru Archer RN) melatonin tablet 6 mg 6 mg, Oral, NIGHTLY, First dose on 10/25/22 at 2100, Until Discontinued, Routine 2044 (Given - Provider: Shelby Blackmon RN) 2018 (Given - Provider: Shelby Blackmon RN) PARoxetine (Paxil) tablet 20 mg 20 mg, Oral, EVERY MORNING, First dose on Tue10/23/22 at 0900, Until Discontinued, DO NOT SPLIT, CRUSH OR OPEN, Routine 0946 (Given - Provider: Niru Archer RN) 0847 (Given - Provider: Niru Archer RN) 09 (Given - Provider: Niru Archer RN) polyethylene glycoL (Miralax) packet 17 g 17 g, Oral, 2 TIMES DAILY, First dose on Tue10/27/22 at 0900, Until Discontinued, Routine 0948 (Given - Provider: Niru Archer RN)2043 (Given - Provider: Shelby Blackmon RN) 0900 (Not Given - Provider: Niru Archer RN - Reason: Patient/family refused)2099 (Not Given - Provider: Shelby Blackmon RN - Reason: Patient/family refused) 0900 (Not Given - Provider: Niru Archer RN - Reason: Contraindicated - Comment: hold for loose stools) potassium bicarbonate (Effer-K) effervescent tablet 40 mEq (COMPLETED) 40 mEq, Oral, ONCE, On Tue11/05/22 at 0845, 1 dose, Do not crush or chew, tablet is meant for dissolution in liquid prior to consumption. 10 mEq tablets: dissolve in 60 - 90 mL of cold water (flavored tablets) or juice (unflavored tablets) 20 mEq tablets: dissolve in 90 - 120 mL of cold water (flavored tablets) or juice (unflavored tablets) 1132 (Given - Provider: Niru Archer RN) potassium chloride ER (Klor-Con M) crystal tablet 40 mEq (COMPLETED) 40 mEq, Oral, ONCE, 1 dose, On Tue11/05/22 at 0515, 20 mEq tablet may be dissolved in water for administration potassium chloride ER particle/crystal tablets (Klor-Con M) may be broken in half and each half swallowed separately. Tablets can be dissolved in ~4 ounces of water; allow ~2 minutes to dissolve, stir well and drink immediately. Do not crush, chew, or suck on tablet., Routine 0607 (Given - Provider: Randall Sethi RN) potassium chloride ER (Klor-Con M) crystal tablet 40 mEq (COMPLETED) 40 mEq, Oral, ONCE, 1 dose, On 11/06/22 at 0615, potassium chloride ER particle/crystal tablets (Klor-Con M) may be broken in half and each half swallowed separately. Tablets can be dissolved in ~4 ounces of water; allow ~2 minutes to dissolve, stir well and drink immediately. Do not crush, chew, or suck on tablet., Routine 0534 (Given - Provider: Shelby Blackmon RN) potassium chloride ER (Klor-Con M) crystal tablet 40 mEq (COMPLETED) 40 mEq, Oral, EVERY HOUR, 2 doses, First dose on 11/06/22 at 1000, Last dose on 11/06/22 at 1100, Please give second dose right before patient discharges potassium chloride ER particle/crystal tablets (Klor-Con M) may be broken in half and each half swallowed separately. Tablets can be dissolved in ~4 ounces of water; allow ~2 minutes to dissolve, stir well and drink immediately. Do not crush, chew, or suck on tablet., Routine 0937 (Given - Provider: Niru Archer RN)1157 (Given - Provider: Niru Archer RN) potassium chloride ER (Klor-Con M) crystal tablet 40 mEq 40 mEq, Oral, EVERY 4 HOURS, 2 doses, First dose on 11/07/22 at 0945, Last dose on 11/07/22 at 1345, potassium chloride ER particle/crystal tablets (Klor-Con M) may be broken in half and each half swallowed separately. Tablets can be dissolved in ~4 ounces of water; allow ~2 minutes to dissolve, stir well and drink immediately. Do not crush, chew, or suck on tablet., Routine 0926 (Given - Provid er: Niru Archer RN) senna-docusate (Pericolace) 8.6-50 mg per tablet 2 tablet 2 tablet, Oral, 2 TIMES DAILY, First dose on Tue10/27/22 at 0900, Until Discontinued, Routine 0946 (Given - Provider: Niru Archer RN)2044 (Given - Provider: Shelby Blackmon RN) 0900 (Not Given - Provider: Niru Archer RN - Reason: Patient/family refused)2099 (Not Given - Provider: Shelby Blackmon RN - Reason: Patient/family refused) 0900 (Not Given - Provider: Niru Archer RN - Reason: Contraindicated - Comment: hold for loose stools) sodium chloride 0.9 % (flush) (BD PosiFlush Normal Saline 0.9) flush 5 mL 5 mL, Intravenous, 2 TIMES DAILY, First dose on 10/23/22 at 0130, Until Discontinued, Routine 0948 (Given - Provider: Niru Archer RN)2045 (Given - Provider: Shelby Blackmon RN) 0849 (Given - Provider: Niru Archer RN)2020 (Given - Provider: Shelby Blackmon RN) 0932 (Given - Provider: Niru Archer RN) triamcinolone (Kenalog) 0.1 % cream Topical (Top), 2 TIMES DAILY, First dose on 10/25/22 at 1445, Until Discontinued, Application Site: Bilateral lower legs. For itching and crusting. 0948 (Given - Provider: Niru Archer RN)2043 (Given - Provider: Shelby Blackmon RN) 0851 (Given - Provider: Niru Archer RN)2021 (Given - Provider: Shelby Blackmon RN) 0933 (Given - Provider: Niru Archer RN) PRN Medication Order 11/05/2022 11/06/2022 11/07/2022 acetaminophen (Tylenol) tablet 500 mg 500 mg, Oral, EVERY 6 HOURS PRN, Starting on 10/23/22 at 0131, Until 11/07/22 at 1414, Pain, Maximum dose of acetaminophen is 4,000 mg from all sources in 24 hours. When ordered for pain, acetaminophen should be given even when other ordered pain medications are indicated. , Routine 2003 (Given - Provider: Shelby Blackmon RN) 08 (Given - Provider: Niru Archer RN)2018 (Given - Provider: Shelby Blackmon RN) albuteroL (Proventil, Ventolin) (2.5 mg/3 mL) (0.083 %) nebulizer solution 2.5 mg 2.5 mg, Nebulization, EVERY 6 HOURS PRN, Starting on 10/25/22 at 1148, Until Tue11/07/22 at 1414, Wheezing, Routine carboxymethylcellulose (Refresh Plus) 0.5 % ophthalmic drops 1 drop 1 drop, Both Eyes, 3 TIMES DAILY PRN, Starting on Tue10/27/22 at 2347, Until Tue11/07/22 at 1414, Dry Eyes, Routine heparin (pf) (porcine) (100 units/mL) flush 5 mL syringe 500 Units (COMPLETED) 500 Units (5 mL), Intravenous, DAILY PRN, 1 dose, Starting on Tue11/05/22 at 1449, Until Tue11/05/22 at 1519, Line Care, Terminal Flush for de-accessing of Implantable Port, Routine 1519 (Given - Provider: Pili Le RN) iohexoL (Omnipaque) (350 mg/mL) solution 0-200 mL (COMPLETED) 0-200 mL, Intravenous, ONCE PRN, 1 dose, Starting on Tue11/05/22 at 1622, Until Tue11/05/22 at 1634, Per Protocol, Warning Vesicant/Irritant Medication , Radiology Contrast, Routine 1634 (Given - Provider: Geni Zafar - Comment: tlc wnl) lidocaine (Xylocaine) 1% (10 mg/mL) injection 3 mg 3 mg (0.3 mL), Subcutaneous, ONCE PRN, 1 dose, Starting on 10/23/22 at 0040, Until Tue11/07/22 at 1414, for discomfort with PIV insertion, Routine loratadine (Claritin) tablet 5 mg 5 mg, Oral, DAILY PRN, Starting on Tue10/25/22 at 1156, Until Tue11/07/22 at 1414, For seasonal allergies, Routine ondansetron (pf) (Zofran) (2 mg/mL) injection 4 mg 4 mg, Intravenous, EVERY 8 HOURS PRN, Starting on 10/30/22 at 2221, Until Tue11/07/22 at 1414, Nausea sodium chloride (Mountrail) 0.65 % nasal spray 1 spray 1 spray, Each Nare, 2 TIMES DAILY PRN, Starting on 10/26/22 at 1154, Until 11/07/22 at 1414, Congestion, Routine sodium chloride 0.9 % (flush) (BD PosiFlush Normal Saline 0.9) flush 5-20 mL 5-20 mL, Intravenous, EVERY 1 MIN PRN, Starting on 10/23/22 at 0040, Until 11/07/22 at 1414, flush, Flush pertains to all indwelling lines. Flush per protocol found in the job aid using the link provided on this medication record., Routine documented in this encounter Care Teams [employer] Relationship Specialty Start Date End Date Jerzy Vidal MD [address] [place] [address] [place] [address] PCP - [facility] 12/04/18 documented as of this encounter
--- OUTSIDE RECORDS SUMMARY | 2024-02-24 01:17 | XMS_ITS | Encounter Summary ---
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 Farmer Name Role Phone Jerzy Vidal MD Primary Care Provider [phone] Encounter Details Date Type Department Care Team (Late st Contact Info) Description 05/27/2022 11:30 AM EST TH Visit (TeleHealth) [place] [address] Shon Schneider MD [facility] [place] [address] Thymic carcinoma Social History Tobacco Use Types Packs/Day Years Used Date Smoking Tobacco: Never Smokeless Tobacco: Never Sex and Gender Information Value Date Recorded Sex Assigned at Not on file Gender Identity Not on file Sexual Orientation Not on file documented as of this encounter Progress Notes * Shon Schneider MD - 05/27/2022 11:30 AM EST Subjective: Patient ID: Mnoica Jaramillo is 66 y.o. Problem List: 1. Thymic carcinoma, stage IV A. Presented to the ED with increasing SOB, h/o atrial fibrillation on apixaban. CT was done with PE protocol and she was found to have an anterior mediastinal mass measuring 8.8 x 8.8 x 4.8 cm and a moderately large sized left pleural effusion with compression atelectasis. transferred to [facility] for further evaluation and workup and [...] B. Biopsy of mediastinal mass 03/29 Path ([facility] review) - Mediastinum, mass, biopsy: 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 [facility] and [facility]'s review - CONSULT SLIDES FROM [facility]; [place], [place]: A. MEDIASTINUM, MASS, BIOPSY ([id number]; 03/22/2017): ? 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 ?Immunohistochemistry performed at the outside institution and reviewed at [facility] demonstrates the following staining profile in lesional cells: ? Positive - AE1/AE3, p40, PAX8, CD117, CD5(multifocal), CK7(scattered cells), synaptophysin, chromogranin ? Negative - CK20, TTF-1, GATA3, CD34 ? The immunohistochemical profile supports the above diagnosis. ? Ki67 (MIB-1) proliferation index performed at the referring institution and reviewed at [facility] is focally up to ~30%. NOTE: While diffuse synaptophysin and chromogranin expression is unusual for conventional thymic carcinoma, the overall histomorphology and immunophenotype is most in keeping with THYMIC SQUAMOUS CARCINOMA.?The extent of PAX8 and CD117 staining would be unusual for Nut carcinoma. B. MEDIASTINUM, ANTERIOR, 4.5 CM, ULTRASOUND GUIDED FINED NEEDLE ASPIRATION ([id number]; 03/22/17): The cytologic preparations were not reviewed [...] Second opinion with Dr. Roddy Vega in [place]. They reviewed the pathology and concurred they [...] cycles. F. CT chest 08/17/17 - Impression: 1.?Overall, mild changes compared to the PET/CT from 04/18/2017. The partly calcified large multilobulated anterior mediastinal mass is not significantly changed, nor the left pleural thickening and pleural masses. However, the left pleural effusion is smaller, and the left cardiophrenic lymph node has decreased in size. No new or enlarging lesions in the chest. 2.?Stable left breast mass. 3.?Additional findings as above. CT chest 12/28/17 - IMPRESSION: 1. Slight decrease in size of known anterior mediastinal mass, stable superior mediastinal adenopathy and improvement of pleural disease within the left hemithorax. 2. Coronary atherosclerosis. 3. Left atrial enlargement. CT chest 05/11/18 - Impression: 1.?Overall minimal change of the anterior mediastinal mass compared to the prior examination, currently measuring 8.9 x 3.4 cm, previously 0.9 x 3.1 cm. The mass likely invades the parietal pericardium, with separate small implants or lymph nodes nodes along the lower portion of the anterior pericardium, and a separate enlarged left cardiophrenic lymph node. Left pleural thickening and pleuralnodules are not significantly changed compared to the prior examination. 2.?Stable left breast mass. This was previously biopsied with out demonstration of malignancy. 3.?Stable small nodules in the left major fissure and along the left inferior pulmonary ligament. CT abd/pelvis 05/11/18 - Impression: 1.?Unchanged lytic and sclerotic lesions in the spine. No new metastatic disease or lymphadenopathy in the abdomen or pelvis. 2.?Fibroid uterus. 3.?Fat and bowel containing ventral and umbilical hernias, [...] CT c/a/p 09/26/18 - Chest - Impression: 1.?Stable appearance of anterior mediastinal mass with minimal juxta pericardial tacos and left-sided pleural disease all which appear stable from April,. 2.?Atherosclerotic disease of the coronary arteries and aorta. 3.?Stable left breast mass unchanged. Abd/pelvis - Impression: 1.?Unchanged lytic and sclerotic lesions in the spine. No evidence of new metastatic disease or adenopathy within the abdomen or pelvis. 2.?Fibroid uterus. Possible fluid within the endometrial canal. Correlate clinically for evidence of vaginal bleeding. 3.?Multiple unchanged fat and bowel containing ventral and umbilical hernias without evidence ofobstruction or strangulation. 4.?Otherwise as above. CT c/a/p 12/19/18 - IMPRESSION [...] therapy with pembrolizumab L. CT c/a/p 11/06/19 ([facility] second read) - IMPRESSION 1. Worsening left-sided [...] slightly improved central upper lung zone aeration. 2. H/o atrial fibrillation 3. HTN 4. Echocardiogram 06/20/18 ([facility]) - Summary: 1. Preserved LV function with an EF of 65%. No apparent wall motion abnormalities. Normal RV function. KATI - global peak systolic strain is -14.3%. ECG rhythm - atrial fibrillation 2. Both atria are mildly dilated in size as described. 3. No hemodynamically significant valvular disease 4. Trivial to mild TR. PA pressures are elevated at 37.25 mmHg. However, PA pressures may be higherdue to inadequate TR jet. Prior Echo 02/11/2014, PAP 23 mmHg 5. The ascending aorta is mildly dilated in size at 3.7 cm. Prior = 3.1 cm 6. Clinical correlation required Echo 08/09/19 - Summary: Normal left ventricular size and systolic function. LVH. Right ventricle mildly dilated, normally functioning.Mild aortic stenosis. Pulmonary pressures are mild to moderately elevated. Biatrial enlargement. Diastolic indices are indeterminate, patient in atrial fibrillation. Borderline elevated indices suggesting LV filling pressures. (LVEF 60-65%). Echo 03/10/22: LVEF - 65%, no wall motion abnormalities. HPI Monica Jaramillo is seen in f/u thymic carcinoma. The history is summarized above. Today's visit is via telehealth. Monica is by herself. On 01/12/22, she was started on therapy with everolimus. She was in the ED on 01/19 with SOB. A thoracentesis was performed with removal of almost 1Lof fluid (per d/c summary). She was also told that it she had evidence of heart failure with a highBNP, LE edema and a pericardial effusion. She was given lasix and the ED and the oral dose was doubl ed for two days (40 mg). She was seen in the ED again on 04/02/22 with increased SOB. A right thoracentesis was performed. Cytology was again negative for malignant cells. A left thoracentesis was done on 04/12/22, cytology negative. Today's visit is a TeleHealth encounter. She is feeling well overall. The LE edema is continuing toimprove. She feels that her breathing is better. Her left knee still bothers her but that is reallyher only complaint today. She is looking forward to the holidays and [facility] We spent the majority of this visit reviewing the Ct and discussing options. She had her vitals done at [facility] yesterday- Weight is a little lower at 230.2# (233#), O2 - 97%, BP -120/68, HR - 78 Soc Hx: , lives in [place], [place] Tob - Never Etoh - rare [...] Physical Exam HENT: Head: Normocephalic and atraumatic. Pulmonary: Effort: No respiratory distress. Skin: General: Skin is warm and dry. Findings: No rash. Neurological: General: No focal deficit present. Mental Status: She is alert. Psychiatric: Mood and Affect: Mood normal. Labs: (05/26/22): WBC/ANC - 5.09/4299, Hgb/Hct - 11.4/36.1, [...] 3.906 04/05/22 3.763 1.41 05/26/22 2.595 1.52 EPO (2.6-18.5) 11/05/21 121 08/21/21 52.3 06/19/21 [...] 07/24/20 12.2 Started lenvatinib 08/18/20 (24 mg/day) CT reviewed, report above Assessment and Plan: Monica Jaramillo is 66 [...] pembrolizumab. I spoke with Dr. Vega at [facility]. There were no clinical trials [...] also spoke with Dr. Shon Ramon at [facility]. He agreed that gemcitabine plus capecitabine is [...] will see her again in two weeks. Due to problems with rides related to personal issues, will schedule this as a TeleHealth encounter. When we decide to restart therapy, would consider pemetrexed. Symptomatically, she feels a little bit better. A CT was done on 05/26/22. This appears largely stable compared with the CT in 04/03. The left pleural effusion is smaller. When going back to the CT from 01/01 however, there is an increase in the paratracheal adenopathy and the anterior mediastinal mass looks a little bigger as well. Therefore, we talked about starting treatment with pemetrexed in June. She has looked into information about this and is in agreement with going ahead. documented in this encounter Plan of Treatment Upcoming Encounters Date Type Department Care Team (Late st Contact Info) Description 02/24/2024 9:00 AM EDT Office Visit Hematology/Oncology at [address] [phone] Shon Schneider MD [facility] [place] [address] [address] HEMATOLOGY AND ONCOLOGY [place], [place] [address] 02/24/2024 9:30 AM EDT Infusion Hematology Oncology at [address] [phone] 03/02/2024 11:00 AM EDT Office Visit Hematology/Oncology at [address] [phone] Shon Schneider MD [facility] [place] [address] [address] HEMATOLOGY AND ONCOLOGY [place], [place] [phone] 03/02/2024 12:30 PM EDT Infusion Hematology Oncology at [address] [phone] 03/09/2024 10:00 AM EDT Office Visit Hematology/Oncology at [address] [phone] Shon Schneider MD [facility] [place] [address] [address] HEMATOLOGY AND ONCOLOGY [place], [place] [phone] 03/09/2024 10:30 AM EDT Infusion Hematology Oncology at [address] [phone] documented as of this encounter Goals Goal [...] thymus documented in this encounter Care Teams [employer] C[employer] Farmer Relationship Specialty Start Date End Date Jerzy Vidal MD [address] [place] [address] [place] [address] PCP - [facility] Medicine 12/04/18 documented as of this encounter
--- OUTSIDE RECORDS SUMMARY | 2024-02-24 01:17 | XMS_ITS | Encounter Summary ---
Author Organization [facility] [place] [address] Care Team Providers Care Electronic Equipment Set Up Operator Name Role Phone Jerzy Vidal MD Primary Care Provider [phone] Encounter Details Date Type Department Care Team (Late Contact Info) Description 10/22/2022 2:25 PM EDT Ancillary Procedure [place] [address] Bar Bajwa MD [facility] DR HEMATOLOGY [place] [address] Social History Tobacco Use Types Packs/Day Years [...] 9:00 AM EDT Office Visit Hematology/Oncology at [address] [phone] Shon Schneider MD [facility] [place] [address] Ciara Pitts APRN [address] [place] [address] DR [place]Y [place] [address] 02/24/2024 9:30 AM EDT Infusion Hematology Oncology at [address] [phone] 03/02/2024 11:00 AM EDT Office Visit Hematology/Oncology at [address] [phone] Shon Schneider MD [facility] [place] [place] [address] HEMATOLOGY AND ONCOLOGY [place], [place] [address] 03/02/2024 12:30 PM EDT Infusion Hematology Oncology at [address] [phone] 03/09/2024 10:00 AM EDT Office Visit Hematology/Oncology at [address] [phone] Shon Schneider MD [facility] [place] [place] [address] [address] HEMATOLOG[place] [address] 03/09/2024 10:30 AM EDT Infusion Hematology Oncology at [address] [phone] documented as of this encounter Goals Goal [...] FILM LIBRARY STORAGE ONLY CT CHEST Routine 10/22/2022 2:22 PM EDT documented in this encounter Results * Film Library- Storage Only CT Chest (10/22/2022 2:22 PM EDT) Narrative [facility] - 10/22/2022 2:22 PM EDT This exam is auto-finalizing. It's purpose is for storage only. Bar Bajwa MD IMG FILM LIBRARY ORD ERABLES [place], [place] documented in this encounter Visit Diagnoses Not on filedocumented in this encounter Care Teams Electronic Equipment Set Up Operator Relationship Specialty Start Date End Date Jerzy Vidal MD [address] [place] [address] [place] [address] PCP - [facility] Medicine 12/04/18 documented as of this encounter
--- OUTSIDE RECORDS SUMMARY | 2024-02-24 01:17 | XMS_ITS | Encounter Summary ---
Author Organization [facility] [place] [address] Care Team Providers Care Safety Deposit Clerk Name Role Phone Jerzy Vidal MD Primary Care Provider [phone] Reason for Visit * Reason Comments Chemotherapy C2D1 pemetrexed * Treatment/Therapy Plan Authorization (Routine) - Closed Specialty Diagnoses / Procedures Referred By Contdelphine t Referred To Contact Hematology and Oncology Diagnoses Thymic carcinoma Procedures TC PEMETREXED, 10MG, INJECTION (ALIMTA) [id number] ALIMTA Shon Schneider MD [address] [place] [address] [place] [address] Shon Schneider MD [address] [place] [address] [place] [address] Referral ID Status Reason Start Date Expiration Date Visits Re quested Visits Authorized [id number] Closed 10/19/2022 10/30/2022 8 8 Encounter Details Date Type Department Care Team (Late st Contact Info) Description 07/21/2022 2:00 PM EST Infusion Hematology Oncology at [address] [phone] Thymic carcinoma Social History Tobacco Use Types Packs/Day Years Used Date Smoking Tobacco: Never Smokeless Tobacco: Never Sex and Gender Information Value Date Recorded Sex Assigned at Not on file Gender Identity Not on file Sexual Orientation Not on file documented as of this encounter Progress Notes * Tatiana Jenkins RN - 07/21/2022 2:00 PM EST INFUSION THERAPY ADMINISTRATION NOTES DIAGNOSIS: Thymic cancer CYCLE #: Cycle 2, Day 1 - Pemetrexed REASON FOR VISIT: To receive chemotherapy SUBJECTIVE: Monica offers no complaints today, she met with Ciara Pitts APRN prior to infusion, ready for treatment. Last B12 injection 06/23/22 OBJECTIVE: VSS. Weight is stable from last visit. LAB DATA: WBC - 5.9, H/H - 8.0/25.3, Plt Ct - 232, ANC - 3.4, Lytes wnl, BUN/Cr - 11/1.02, MG - 1.6 IV ACCESS: Port accessed without difficulty. Flushes readily with brisk blood return. Pre administration: Chemotherapy orders independently verified for drug name, route, and dosage per patient's height, weight and BSA by Tatiana Jenkins, SEBASTIAN and Staff Pharmacist(s). REACTIONS (DESCRIPTION, TIME, INTERVENTION AND EFFECTIVENESS) none ASSESSMENT: Monica was awake, alert and tolerated treatment well. Port flushed with 20 cc's of NS and 500 units of heparin and de-accessed. PLAN: Return to clinic in three weeks. documented in this encounter Plan of Treatment Upcoming Encounters Date Type Department Care Team (Late st Contact Info) Description 02/24/2024 9:00 AM EDT Office Visit Hematology/Oncology at [address] [phone] Shon Schneider MD [facility] [place] [address] Ciara Pitts APRN [address] [place] [address] DR [place] [address] 02/24/2024 9:30 AM EDT Infusion Hematology Oncology at [address] [phone] 03/02/2024 11:00 AM EDT Office Visit Hematology/Oncology at [address] [phone] Shon Schneider MD [facility] [place] [address] [address] HEMATOLOGY AND ONCOLOGY [place], [place] [phone] 03/02/2024 12:30 PM EDT Infusion Hematology Oncology at [address] [phone] 03/09/2024 10:00 AM EDT Office Visit Hematology/Oncology at [address] [phone] Shon Schneider MD [facility] [place] [address] [address] HEMATOLOGY AND ONCOLOGY [place], [place] [phone] 03/09/2024 10:30 AM EDT Infusion Hematology Oncology at [address] [phone] documented as of this encounter Goals Goal Patient Goal Type Associated Problems Recent Progress Patient-Stated? Author DH Home Medication Compliance and Understanding Patient Facing Action Plan On track( 019 3:22 PM EST) Ivana Ashraf, [facility] Note: [...] MAR Action Action Date Dose Rate Site ondansetron (Zofran) tablet 8 mg 8 mg, Oral, ONCE, 1 dose, On Tue07/21/22 at 1445, Administer prior to chemotherapy, Routine Given 07/21/2022 2:27 PM EST 8 mg PEMEtrexed disodium (Alimta) 800 mg in sodium chloride 0.9% 132 mL infusion 800 mg, Intravenous, ONCE, 1 dose, On Tue07/21/22 at 1545, Administer over 10 Minutes, Dose Ordered = 844 mg (375 mg/m2). Pharmacist rounded dose per procedure. Incompatible with calcium containing IV products New Bag 07/21/2022 3:15 PM EST 800 mg 792 mL/h r documented in this encounter Care Teams Safety Deposit Clerk Relationship Specialty Start Date End Date Jerzy Vidal MD [address] [place] [address] [place] [address] PCP - [facility] Medicine 12/04/18 documented as of this encounter
--- OUTSIDE RECORDS SUMMARY | 2024-02-24 01:17 | XMS_ITS | Encounter Summary ---
Author Organization [facility] [place] [address] Care Team Providers Care Fancy Wire Drawer Name Role Phone Jerzy Vidal MD Primary Care Provider [phone] Reason for Visit * Reason Onset Date Comments Labs Only 09/20/2022 Encounter Details Date Type Department Care Team (Late Contact Info) Description 09/20/2022 Telephone Hematology/Oncology at [address] [phone] Brionna Andrade RN Labs Only Social History Tobacco Use Types Packs/Day Years Used Date Smoking Tobacco: Never Smokeless Tobacco: Never Sex and Gender Information Value Date Recorded Sex Assigned at Not on file Gender Identity Not on file Sexual Orientation Not on file documented as of this encounter Miscellaneous Notes * Telephone Encounter - Brionna Andrade RN - 09/20/2022 2:03 PM EDT Labs from September retic count 4 Haptoglobin 152 Direct antiglobulin negative. Results scanned in, Dr. Schneider updated via this note. documented in this encounter Plan of Treatment Upcoming Encounters Date Type Department Care Team (Late Contact Info) Description 02/24/2024 9:00 AM EDT Office Visit Hematology/Oncology at [address] [phone] Shon Schneider MD [facility] [place] [address] [address] HEMATOLOGY AND ONCOLOGY [place], [place] [address] 02/24/2024 9:30 AM EDT Infusion Hematology Oncology at [address] [phone] 03/02/2024 11:00 AM EDT Office Visit Hematology/Oncology at [address] [phone] Shon Schneider MD [facility] [place] [address] [address] HEMATOLOGY AND ONCOLOGY [place], [place] [address] 03/02/2024 12:30 PM EDT Infusion Hematology Oncology at [address] [phone] 03/09/2024 10:00 AM EDT Office Visit Hematology/Oncology at [address] [phone] Shon Schneider MD [facility] [place] [address] [address] [place] [address] 03/09/2024 10:30 AM EDT Infusion Hematology Oncology at [address] [phone] documented as of this encounter Goals Goal [...] on filedocumented in this encounter Care Teams Fancy Wire Drawer Relationship Specialty Start Date End Date Jerzy Vidal MD [address] [place] [address] [place] [address] PCP - [facility] 12/04/18 documented as of this encounter
--- OUTSIDE RECORDS SUMMARY | 2024-02-24 01:17 | XMS_ITS | Encounter Summary ---
Author Organization [facility] Address [facility] [place] [address] Care Team Providers Care Transportation Operations Manager Name Role Phone Jerzy Vidal MD Primary Care Provider [phone] Encounter Details Date Type Department Care Team (Late st Contact Info) Description 05/14/2022 10:00 AM EST TH Visit (TeleHealth) Hematology/Oncology at [address] [phone] Shon Schneider MD [facility] [place] [place] [address] Ciara Pitts APRN [address] [place] [address] DR HEMATOLOGY AND ONCOLOGY [place], [place] [id number] Thymic carcinoma; Hypothyroidism, unspecified type Social History Tobacco Use Types Packs/Day Years Used Date Smoking Tobacco: Never Smokeless Tobacco: Never Sex and Gender Information Value Date Recorded Sex Assigned at Not on file Gender Identity Not on file Sexual Orientation Not on file documented as of this encounter Progress Notes * Shon Schneider MD - 05/14/2022 10:00 AM EST Subjective: Patient ID: Monica Jaramillo is 66 y.o. Problem List: 1. Thymic carcinoma, stage IV A. Presented to the ED with increasing SOB, h/o atrial fibrillation on apixaban. CT was done with PE protocol and she was found to have an anterior mediastinal mass measuring 8.8 x 8.8 x 4.8 cm and a moderately large sized left pleural effusion with compression atelectasis. transferred to [facility] for further evaluation and workup and [...] Biopsy of mediastinal mass 03/29 Path ([facility] review) - Mediastinum, mass, biopsy: 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 [facility] - CONSULT SLIDES FROM [facility]; [place], [place]: A. MEDIASTINUM, MASS, BIOPSY ([id number]; 03/22/2017): ? 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 ?Immunohistochemistry performed at the outside institution and reviewed at [facility] demonstrates the following staining profile in lesional cells: ? Positive - AE1/AE3, p40, PAX8, CD117, CD5(multifocal), CK7(scattered cells), synaptophysin, chromogranin ? Negative - CK20, TTF-1, GATA3, CD34 ? The immunohistochemical profile supports the above diagnosis. ? Ki67 (MIB-1) proliferation index performed at the referring institution and reviewed at [facility] is focally up to ~30%. NOTE: While diffuse synaptophysin and chromogranin expression is unusual for conventional thymic carcinoma, the overall histomorphology and immunophenotype is most in keeping with THYMIC SQUAMOUS CARCINOMA.?The extent of PAX8 and CD117 staining would be unusual for Nut carcinoma. B. MEDIASTINUM, ANTERIOR, 4.5 CM, ULTRASOUND GUIDED FINED NEEDLE ASPIRATION ([id number]; 03/22/17): The cytologic preparations were not reviewed [...] Second opinion with Dr. Roddy Vega in [place]. They reviewed the pathology and concurred they [...] with pembrolizumab L. CT c/a/p 11/06/19 ([facility] second read) - IMPRESSION 1. [...] with less than 25% loss of height 2. H/o atrial fibrillation 3. HTN 4. Echocardiogram 06/20/18 ([facility]) - Summary: 1. Preserved LV function [...] Today's visit is a TeleHealth encounter. She feels the LE edema is continuing to improve. Her mobility is better although her left knee still bothers her. She says this is her arthritic knee. The weeping that she had of the lower legs has reduced significantly. She says it is gone completely on theright and the left leg is still a little moist at times. Her weight is a little lower. She denies significant SOB. She did Thanksgiving dinner at her house and made dinner for her family. She did well with this and was very pleased to do that. Her energy level overall is good, improved. She is eating well. She is taking 80 mg of lasix once a day and she feels she responcds well to this dose. She is taking paxil. Her bowels are regular. She had her vitals done at [facility] yesterday- Weight is a little lower at 233# (236# last visit), O2 - 95%, BP - 117/71, HR - 78 Soc Hx: , lives in [place], [place] Tob - Never Etoh - rare [...] Psychiatric: Mood and Affect: Mood normal. Labs: (05/13/22): WBC/ANC - 4.08/3499, Hgb/Hct - 10.7/34.6, Plts - 197,000. BUN/Cr - 25/0.98. Mg - 1.7, alb - 3.1. Lytes and LFTs o/w unremarkable (04/27/22): [...] 35.55 1.09 01/06/22 3.906 04/05/22 3.763 1.41 EPO (2.6-18.5) 11/05/21 121 08/21/21 52.3 06/19/21 [...] pembrolizumab. I spoke with Dr. Vega at [facility]. There were no clinical trials available [...] also spoke with Dr. Shon Ramon at [facility]. He agreed that gemcitabine plus capecitabine is [...] of fluid. She was also told that it she had evidence of heart failure with a high proBNP, LE edema and a [...] effect of the everolimus as well as myelosuppresison.The everolimus has been held since 03/12/22 (except for a couple of days when she took it). A CT c/a/p was done on 04/05/22. [...] decide to restart therapy, would consider pemetrexed. I will see her in a couple of weeks with a CT scan prior. documented in this encounter Plan of Treatment Upcoming Encounters Date Type Department Care Team (Late st Contact Info) Description 02/24/2024 9:00 AM EDT Office Visit Hematology/Oncology at [address] [phone] Shon Schneider MD [facility] [place] [address] Ciara Pitts APRN [address] [place] [address] HEMATOLOGY [place] [address] 02/24/2024 9:30 AM EDT Infusion Hematology Oncology at [address] [phone] 03/02/2024 11:00 AM EDT Office Visit Hematology/Oncology at [address] [phone] Shon Schneider MD [facility] [place] [address] HEMATOLOGY [place] [address] 03/02/2024 12:30 PM EDT Infusion Hematology Oncology at [address] [phone] 03/09/2024 10:00 AM EDT Office Visit Hematology/Oncology at [address] [phone] Shon Schneider MD [facility] [place] [place] [address] HEMATOLOGY [place] [address] 03/09/2024 10:30 AM EDT Infusion Hematology Oncology at [address] [phone] documented as of this encounter Goals Goal Patient Goal Type Associated Problems Recent Progress Patient-Stated? Author DH Home Medication Compliance and Understanding Patient Facing Action Plan On track( 019 3:22 PM EST) Ivana Ashraf, [facility] Note: Remain 95% or better adherent to chemotherapy without severe side effects as assessed by days supply and patient reported adverse events at each refill documented as of this encounter Visit Diagnoses Diagnosis Thymic carcinoma Malignant neoplasm of thymus Hypothyroidism, unspecified type Thymic carcinoma Malignant neoplasm of thymus documented in this encounter Care Teams Transportation Operations Manager Relationship Specialty Start Date End Date Jerzy Vidal MD [address] [place] [address] [place] [address] PCP - [facility] Medicine 12/04/18 documented as of this encounter
--- OUTSIDE RECORDS SUMMARY | 2024-02-24 01:17 | XMS_ITS | Encounter Summary ---
Author Organization [facility] Address [facility] [place] [address] Care Team Providers Care Blocker And Cutter Contact Lens Name Role Phone Jerzy Vidal MD Primary Care Provider Encounter Details Date Type Department Care Team (Late st Contact Info) Description 10/22/2022 [place] [phone] Jules Nicholas MD [facility] [place] [address] Social History Tobacco Use Types Packs/Day Years [...] encounter Miscellaneous Notes * Telephone Encounter - Jules Nicholas MD - 10/22/2022 3:42 PM EDT [facility] TeleICU Consult HPI: 67 yo female with extensive history of thymic CA (Stage IV). Currently receiving pemetrexed for treatment. Presented to [facility] ED c/o bleeding from upper airway x several hours. No clear inciting event for bleeding. Reportedly wells up in back of throat prompting patient to expectorate blood. No cough, no emesis. Unclear bleeding source. Request for transfer to Heme/Onc unable to be honored due to ca pacity. Consult placed for TeleICU for consideration of transfer to [facility]. Vitals: AF, 70's, 127/20, 20, 90% on 4L by ADELIA Whaley to abdomen CT Chest with bilateral pleural effusions, atelectasis vs PNA Hgb 7.1 (will receive 1uPRBC prior to transfer) WBC 3.4 Plts 3 Lactate 1.8 PLAN: 67 yo female actively receiving chemotherapy for thymic CA, now with upper airway bleeding of unclear etiology and severe thrombocytopenia, neutropenia and anemia. 1. Transfer to [facility], MICU 2. Triage to Blue team, Dr. Yadav, attending 3. Monitor bleeding and airway closely. Control airway with intubation if needed 4. ALS ground transport in comfortable, seated position. JULES NICHOLAS MD documented in this encounter Plan of Treatment Upcoming Encounters Date Type Department Care Team (Late st Contact Info) Description 02/24/2024 9:00 AM EDT Office Visit Hematology/Oncology at [address] [phone] Shon Schneider MD [facility] [place] [address] Ciara Pitts [address] HEMATOLOGY AND ONCOLOGY [place], [place] [address] 02/24/2024 9:30 AM EDT Infusion Hematology Oncology at [address] [phone] 03/02/2024 11:00 AM EDT Office Visit Hematology/Oncology at [address] [phone] Shon Schneider MD [facility] [place] [address] Ciara Pitts [address] HEMATOLOGY AND ONCOLOGY [place], [place] [phone] 03/02/2024 12:30 PM EDT Infusion Hematology Oncology at [address] [phone] 03/09/2024 10:00 AM EDT Office Visit Hematology/Oncology at [address] [phone] Shon Schneider MD [facility] DR [place] [address] Ciara Pitts APRN [address] [place] [address] DR HEMATOLOGY AND ONCOLOGY [place], [place] [phone] 03/09/2024 10:30 AM EDT Infusion Hematology Oncology at [address] [phone] documented as of this encounter Goals Goal Patient Goal Type Associated Problems Recent Progress Patient-Stated? Author DH Home Medication Compliance and Understanding Patient Facing Action Plan On track( 019 3:22 PM EST) No Ivana Vanegas, [facility] Note: Remain 95% or better adherent to chemotherapy without severe side effects as assessed by days supply and patient reported adverse events at each refill documented as of this encounter Visit Diagnoses Not on filedocumented in this encounter Care Teams Blocker And Cutter Contact Lens Relationship Specialty Start Date End Date Jerzy Vidal MD [address] [place] [address] [place] [address] [facility] 12/04/18 documented as of this encounter
--- OUTSIDE RECORDS SUMMARY | 2024-02-24 01:17 | XMS_ITS | Encounter Summary ---
Author Organization [facility] Address [facility] [place] [address] Care Team Providers Care Quality Compliance Coordinator Name Role Phone Jerzy Vidal MD Primary Care Provider [phone] Encounter Details Date Type Department Care Team (Latest Contact Info) Description 05/14/2022 Travel Social History Tobacco Use Types Packs/Day [...] 9:00 AM EDT Office Visit Hematology/Oncology at [address] [phone] Shon Schneider MD [facility] [place] [address] Ciara Pitts APRN [address] [place] [address] DR HEMATOLOGY AND ONCOLOGY [place], [place] [phone] 02/24/2024 9:30 AM EDT Infusion Hematology Oncology at [address] [phone] 03/02/2024 11:00 AM EDT Office Visit Hematology/Oncology at [address] [phone] Shon Schneider MD [facility] [place] [address] Ciara Pitts, [address] HEMATOLOGY AND ONCOLOGY [place], [place] [address] 03/02/2024 12:30 PM EDT Infusion Hematology Oncology at [address] [phone] 03/09/2024 10:00 AM EDT Office Visit Hematology/Oncology at [address] [phone] Shon Schneider MD [facility] [place] [address] HEMATOLOGY AND ONCOLOGY [place], [place] [address] 03/09/2024 10:30 AM EDT Infusion Hematology Oncology at [address] [phone] documented as of this encounter Goals Goal [...] on filedocumented in this encounter Care Teams Quality Compliance Coordinator Relationship Specialty Start Date End Date Jerzy Vidal MD [address] [place] [address] [place] [address] PCP - [facility] Medicine 12/04/18 documented as of this encounter
--- OUTSIDE RECORDS SUMMARY | 2024-02-24 01:17 | XMS_ITS | Encounter Summary ---
Author Organization [facility] [place] [address] Care Team Providers Care Repair Specialist Name Role Phone Jerzy Vidal MD Primary Care Provider [phone] Encounter Details Date Type Department Care Team (Late Contact Info) Description 10/22/2022 2:30 PM EDT Ancillary Procedure [place] [address] Bar Bajwa MD [facility] DR [place] [address] Social History Tobacco Use Types Packs/Day Years [...] 9:00 AM EDT Office Visit Hematology/Oncology at [address] [phone] Shon Schneider MD [facility] [place] [address] Ciara Pitts APRN [address] [place] [address] DR HEMATOLOGY [place] [address] 02/24/2024 9:30 AM EDT Infusion Hematology Oncology at [address] [phone] 03/02/2024 11:00 AM EDT Office Visit Hematology/Oncology at [address] [phone] Shon Schneider MD [facility] [place] [address] [address] HEMATOLOGY AND ONCOLOGY [place], [place] [address] 03/02/2024 12:30 PM EDT Infusion Hematology Oncology at [address] [phone] 03/09/2024 10:00 AM EDT Office Visit Hematology/Oncology at [address] [phone] Shon Schneider MD [facility] [place] [address] [address] HEMATOLOGY [place] [address] 03/09/2024 10:30 AM EDT Infusion Hematology Oncology at [address] [phone] documented as of this encounter Goals Goal Patient Goal Type Associated Problems Recent Progress Patient-Stated? Author DH Home Medication Compliance and Understanding Patient Facing Action Plan On track( 019 3:22 PM EST) Ivana Ashraf, [facility] Note: Remain 95% or better adherent to chemotherapy without severe side effects as assessed by days supply and patient reported adverse events at each refill documented as of this encounter Procedures Procedure Name Priority Date/Time Associated Diagnosis Comments FILM LIBRARY STORAGE ONLY DX CHEST Routine 10/22/2022 2:23 PM EDT documented in this encounter Results * Film Library- Storage Only DX Chest (10/22/2022 2:23 PM EDT) Narrative RAD - 10/22/2022 2:23 PM EDT This exam is auto-finalizing. It's purpose is for storage only. Bar Bajwa MD IMG FILM LIBRARY ORD ERABLES [place], [place] documented in this encounter Visit Diagnoses Not on filedocumented in this encounter Care Teams Repair Specialist Relationship Specialty Start Date End Date Jerzy Vidal MD [address] [place] [address] [place] [address] PCP - [facility] Medicine 12/04/18 documented as of this encounter
--- OUTSIDE RECORDS SUMMARY | 2024-02-24 01:17 | XMS_ITS | Encounter Summary ---
Author Organization [facility] [place] [address] Care Team Providers Care Metal Wire Coating Operator Name Role Phone Jerzy Vidal MD Primary Care Provider [phone] Reason for Visit * Reason Comments Specialty Pharmacy Review Everolimus 10m g tablet Encounter Details Date Type Department Care Team (Late st Contact Info) Description 04/29/2022 Specialty [place] [address] Coral Marin, [facility] Social History Tobacco Use Types Packs/Day Years Used Date Smoking Tobacco: Never Smokeless Tobacco: Never Sex and Gender Information Value Date Recorded Sex Assigned at Not on file Gender Identity Not on file Sexual Orientation Not on file documented as of this encounter Progress Notes * Coral Marin - 04/29/2022 11:59 PM EST The [facility] has completed a benefits investigation for Monica Jaramillo to review their eligibility to fill at [facility]. Per patient's medication list they are prescribed Everolimus 5mg tablet and the medication is able to be filled at the [facility]. The patient is eligible to fill the medication through Specialty Pharmacy with a high copay. Thepatient is currently filling the medication through [employer] with their internal financial assistance documented in this encounter Plan of Treatment Upcoming Encounters Date Type Department Care Team (Late st Contact Info) Description 02/24/2024 9:00 AM EDT Office Visit Hematology/Oncology at [address] [phone] Shon Schneider MD [facility] [place] [address] [address] HEMATOLOGY AND ON[place]OGY [place], [place] [address] 02/24/2024 9:30 AM EDT Infusion Hematology Oncology at [address] [phone] 03/02/2024 11:00 AM EDT Office Visit Hematology/Oncology at [address] [phone] Shon Schneider MD [facility] [place] [address] [address] HEMATOLOGY AND ONCOLOGY [place], [place] [address] 03/02/2024 12:30 PM EDT Infusion Hematology Oncology at [address] [phone] 03/09/2024 10:00 AM EDT Office Visit Hematology/Oncology at [address] [phone] Shon Schneider MD [facility] [place] [address] [address] HEMATOLOGY AND ONCOLOGY [place], [place] [address] 03/09/2024 10:30 AM EDT Infusion Hematology Oncology at [address] [phone] documented as of this encounter Goals Goal Patient Goal Type Associated Problems Recent Progress Patient-Stated? Author DH Home Medication Compliance and Understanding Patient Facing Action Plan On track( 019 3:22 PM EST) No Ivana Vanegas, [facility] Note: Remain 95% or better adherent to chemotherapy without severe side effects as assessed by days supply and patient reported adverse events at each refill documented as of this encounter Visit Diagnoses Not on filedocumented in this encounter Care Teams Metal Wire Coating Operator Relationship Specialty Start Date End Date Jerzy Vidal MD [address] [place] [address] [place] [address] PCP - [facility] Medicine 12/04/18 documented as of this encounter
--- OUTSIDE RECORDS SUMMARY | 2024-02-24 01:17 | XMS_ITS | Encounter Summary ---
Author Organization [facility] Address [facility] [place] [address] Care Team Providers Care Java Front End Web Developer Name Role Phone Jerzy Vidal MD Primary Care Provider [phone] Encounter Details Date Type Department Care Team (Latest Contact Info) Description 10/08/2022 Travel Social History Tobacco Use Types Packs/Day [...] AM EDT Office Visit Hematology/Oncology at [address] [phone] Shon Schneider MD [facility] [place] [address] Ciara Pitts APRN [address] [place] [address] DR HEMATOLOGY AND ONCOLOGY [place], [place] [phone] 02/24/2024 9:30 AM EDT Infusion Hematology Oncology at [address] [phone] 03/02/2024 11:00 AM EDT Office Visit Hematology/Oncology at [address] [phone] Shon Schneider MD [facility] [place] [address] Ciara Pitts, [address] HEMATOLOGY AND ONCOLOGY [place], [place] [address] 03/02/2024 12:30 PM EDT Infusion Hematology Oncology at [address] [phone] 03/09/2024 10:00 AM EDT Office Visit Hematology/Oncology at [address] [phone] Shon Schneider MD [facility] [address] HEMATOLOGY AND ONCOLOGY [place], [place] [address] 03/09/2024 10:30 AM EDT Infusion Hematology Oncology at [address] [phone] documented as of this encounter Goals Goal [...] on filedocumented in this encounter Care Teams Java Front End Web Developer Relationship Specialty Start Date End Date Jerzy Vidal MD [address] [place] [address] [place] [address] PCP - [facility] Medicine 12/04/18 documented as of this encounter
--- OUTSIDE RECORDS SUMMARY | 2024-02-24 01:17 | XMS_ITS | Encounter Summary ---
Author Organization [facility] Address [facility] [place] [address] Care Team Providers Care Rivet Spinner Name Role Phone Jerzy Vidal MD Primary Care Provider [phone] Encounter Details Date Type Department Care Team (Late st Contact Info) Description 07/21/2022 1:30 PM EST Office Visit Hematology/Oncology at [address] [phone] Ciara Pitts APRN [address] [place] [address] DR HEMATOLOGY [place] [address] Thymic carcinoma Social History Tobacco Use Types Packs/Day Years Used Date Smoking Tobacco: Never Smokeless Tobacco: Never Sex and Gender Information Value Date Recorded Sex Assigned at Not on file Gender Identity Not on file Sexual Orientation Not on file documented as of this encounter Last Filed Vital Signs Vital Sign Reading Time Taken Comments Blood Pressure 99/66 07/21/2022 1:38 PM EST Pulse 77 07/21/2022 1:38 PM EST Temperature 36.5 ??C (97.7 ??F) 07/21/2022 1:38 PM ES T Respiratory Rate 20 07/21/2022 1:38 PM EST Oxygen Saturation 95% 07/21/2022 1:38 PM EST Inhaled Oxygen Concentration - - Weight 112.3 kg (247 lb 8 oz) 07/21/2022 1:38 PM EST Height 175.3 cm (5' 9.02) 07/21/2022 1:38 PM ES T Body Mass Index 36.53 07/21/2022 1:38 PM EST documented in this encounter Progress Notes * Ciara Pitts, BARBER - 07/21/2022 1:30 PM EST Subjective: Patient ID: Monica Jaramillo [...] pleural effusion with compression atelectasis. transferred to [facility] for further evaluation and workup and [...] B. Biopsy of mediastinal mass 03/29 Path ([facility] review) - Mediastinum, mass, biopsy: 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 [facility] - CONSULT SLIDES FROM [facility]; [place], [place]: A. MEDIASTINUM, MASS, BIOPSY ([id number]; 03/22/2017): ? 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 ?Immunohistochemistry performed at the outside institution and reviewed at [facility] demonstrates the following staining profile in lesional cells: ? Positive - AE1/AE3, p40, PAX8, CD117, CD5(multifocal), CK7(scattered cells), synaptophysin, chromogranin ? Negative - CK20, TTF-1, GATA3, CD34 ? The immunohistochemical profile supports the above diagnosis. ? Ki67 (MIB-1) proliferation index performed at the referring institution and reviewed at [facility] is focally up to ~30%. NOTE: While diffuse synaptophysin and chromogranin expression is unusual for conventional thymic carcinoma, the overall histomorphology and immunophenotype is most in keeping with THYMIC SQUAMOUS CARCINOMA.?The extent of PAX8 and CD117 staining would be unusual for Nut carcinoma. B. MEDIASTINUM, ANTERIOR, 4.5 CM, ULTRASOUND GUIDED FINED NEEDLE ASPIRATION ([id number]; 03/22/17): The cytologic preparations were not reviewed [...] Second opinion with Dr. Roddy Vega in [place]. They reviewed the pathology and concurred they [...] therapy with pembrolizumab L. CT c/a/p 11/06/19 ([facility] second read) - IMPRESSION 1. Worsening left-sided [...] atrial fibrillation 3. HTN 4. Echocardiogram 06/20/18 ([facility]) - Summary: 1. Preserved LV function with [...] function. LVH. Right ventricle mildly dilated, normally functioning. Mild aortic stenosis. Pulmonary pressures are mild to moderately elevated. Biatrial enlargement. Diastolic indices are indeterminate, patient in atrial fibrillation. Borderline elevated indices suggesting LV filling pressures. (LVEF 60-65%). Echo 03/10/22: LVEF - 65%, no wall motion abnormalities. HPI Monica Jaramillo is seen in f/u thymic carcinoma. The history is summarized above. Monica is here with her daughter. She is feeling well overall after her first cycle of pemetrexed. She did have some fatigue, mild nausea, and constipation (using miralax). She found that using the lasix and the miralax at the same time left her feeling dehydrated and shehad minimal urine output. This has since resolved. Weight is down a few lbs. Appetite lower. No rash. No fevers. No mouth sores. No changes to baseline neuropathy. Overall, her worst week was the first week post-infusion. She feels that maybe she was unprepared to return to traditional chemotherapy and the effects were a bit of a surprise. She now feels more ready to continue. Her labs were done last week as she was supposed to be here [place], her hgb is low at 8.0. She denies any bleeding in her stool, urine, gums, or bruising. Her energy has returned almost to baseline -she does recall requiring transfusions years ago when on carbo/taxol, and possibly sutent as well. 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 Fam Hx: No h/o cancer Review of Systems Constitutional: Positive for appetite change and fatigue. Negative for activity change, fever and unexpected weight change. HENT: Negative. Respiratory: Negative for cough. Cardiovascular: Positive for leg swelling. Negative for chest pain and palpitations. Gastrointestinal: Positive for constipation. Negative for abdominal distention, abdominal pain, blood in stool and vomiting. Genitourinary: Negative. Musculoskeletal: Negative. Skin: Negative for color change and rash. Neurological: Negative. Hematological: Negative. Does not bruise/bleed easily. Psychiatric/Behavioral: Negative. All other systems reviewed and are negative. Objective: Physical Exam Constitutional: General: She is not in acute distress. Appearance: She is not toxic-appearing. HENT: Head: Normocephalic and atraumatic. Mouth/Throat: Pharynx: No posterior oropharyngeal erythema. Eyes: General: No scleral icterus. Cardiovascular: Rate and Rhythm: Normal rate and regular rhythm. Heart sounds: Normal heart sounds. Pulmonary: Effort: Pulmonary effort is normal. No respiratory distress. Breath sounds: Normal breath sounds. Abdominal: General: Bowel sounds are normal. Palpations: Abdomen is soft. Musculoskeletal: Right lower leg: Edema present. Left lower leg: Edema present. Skin: General: Skin is warm and dry. Coloration: Skin is not jaundiced. Findings: No rash. Neurological: General: No focal deficit present. Mental Status: She is alert. Psychiatric: Mood and Affect: Mood normal. Labs: (07/14/22) WBC/ANC 5.02/3400, Hgb/Hct 8.0/25.3, plt 232,000, Na 135, BUN 11, Creat 1.02, Mg 1.6,Albumin 2.6, ALT 13, TSH 1.67, Free T4 3.833 remainder of lytes and LFTs otherwise unremarkable. (06/16/22): WBC/ANC - 4.07/3099, Hgb/Hct - 11.4/36.9, [...] 1.41 05/26/22 2.595 1.52 06/16/22 3.813 1.26 EPO (2.6-18.5) 11/05/21 121 08/21/21 52.3 06/19/21 [...] letter with supporting phase II data and Dr. Schneider did a peer to peer review (Dr. Osborn) for this. This was not approved at that time. The recommendation was to proceed with oneof the NCCN recommended second line therapies for thymic carcinoma. If/when she has progression on that, it was suggested that we re-apply for the pembrolizumab. Dr. Schneider spoke with Dr. Vega at [facility]. There were no clinical trials available there. [...] for a longer duration vs changing therapy. It was decided to continue the pembrolizumab. CT was repeated on 02/06/20 - progression of the pleural nodularity on the left with an increase in a small left pleural effusion. The images were reviewed and it was agreed that it did appear that there was progession of the pleural disease. Given this, we decided to stop the pembrolizumab. We attempted to get lenvatinib but this was denied by her insurance. Dr. Schneider spoke with Dr. Bcekman from [facility]. His suggestion was to try gemcitabine plus capecitabine. Dr. Schneider also spoke with Dr. Shon Ramon at [facility] [place]. He agreed that gemcitabine plus capecitabine is [...] main mass is about the same but we were concerned that the other findings are indicative of disease progression. We therefore stopped the gemcitabine/capecitabine. Options were discussed, including lenvatinib and pemetrexed. Started lenvatinib 24 mg PO daily on 08/18/20. Restaging CT scan 10/28/20 - improvement in the pleural disease and pleural effusions. The most recent CT, done 02/10/21 showed a similar picture, ie stable mediastinal mass and epicardial LN with decrease in pleural effusion. It was decided that she will continue the lenavtinib at the same dose, 24 mg per day. When seen on 02/20/21, Dr. Schneider was concerned that she had become polycythemic. The WBC and Plts were not elevated. 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 For further evaluation, an EPO level, JAK2 and BCR/ABL PCR were checked. The results are above. There was noevidence of MPD. 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 The reason forelevated EPO level was not clear. Her oxygen saturation had been in the high 90s. She does [...] this the cancer is producing EPO. The Hgbis elevated again. The EPO level from 08/2021 had increased. We had her discontinue the lenvatinib on 04/17/21. Recheck of the CBC showed normalization of the Hgb. The lenvatinib was restarted at 14 mg per day on 05/02/21. She seemed to tolerate this well. The EPO level has decreased [...] and repeat a chest CT. The CT that was done on 12/13/21 and showed markedimprovement in the effusions. When seen on 12/18/21 she had a significant rash which had the appearance of erythema multiforme. This was felt most likely to be related to the lenvantinib. Dr. Schneider had her stop this and started a prednisone burst. The rash has improved, the itching has resolved. Given the apparent reaction to lenvatinib, I would not rechallenge with that. Other options [...] continue the potassium at 20 meq/day. She hadsignificant edema which may be a side effect of the everolimus as well as myelosuppresison. A CT c/a/p was done on 04/05/22. The anterior mediastinal mass appeared stable. The most significant change was an increase in bilateral pleural effusions and anasarca. She had a left thoracentesis on 04/12/22, cytology negative. The lasix dose was changed to 80 mg once a day. She noticed more output with this and also said theLE edema is slowly improving. She will continue the same dose of lasix. The everolimus had been on hold since 03/12/22. This can be associated with edema and per case reports, may take several weeks to a few months to improve. She will continue the oral potassium at the same dose. Overall, the LE edema has improved, although not resolved. A CT was done on 05/26/22. This appears largely stable compared with the CT in 04/03. The left pleural effusion is smaller. When going back to the CT from 01/01 however, there is an increase in the paratracheal adenopathy and the anterior mediastinal mass looks a little bigger as well. Therefore, wetalked about starting treatment with pemetrexed in June. She has looked into information about this and is in agreement with going ahead. She started folic acid 06/18/22, 1000 mcg/day. She knows that she will receive a B12 injection with the first dose and every third cycle. The initial cycle was delayed due to transportation issues, but she received C1 of pemetrexed on 06/23/22. Overall, she has tolerated it well. She does, however, have some grade 2-3 anemia this week. The remainder of her indices are WNL, and she denies bleeding. She reports her energy has overall returned. Considering these things, we will reduce her pemetrexed to 75% today, and re-evaluate on C2. If the anemia remains at that point, we may check iron studies then. She will proceed with C2 today, and RTC in 3 weeks for consideration of C3. documented in this encounter Plan of Treatment Upcoming Encounters Date Type Department Care Team (Late st Contact Info) Description 02/24/2024 9:00 AM EDT Office Visit Hematology/Oncology at [address] [phone] Shon Schneider MD [facility] [place] [address] [address] HEMATOLOGY AND ONCOLOGY [place], [place] [address] 02/24/2024 9:30 AM EDT Infusion Hematology Oncology at [address] [phone] 03/02/2024 11:00 AM EDT Office Visit Hematology/Oncology at [address] [phone] Shon Schneider MD [facility] [place] [address] [address] HEMATOLOGY AND ONCOLOGY [place], [place] [address] 03/02/2024 12:30 PM EDT Infusion Hematology Oncology at [address] [phone] 03/09/2024 10:00 AM EDT Office Visit Hematology/Oncology at [address] [phone] Shon Schneider MD [facility] [place] [address] [address] HEMATOLOGY AND ONCOLOGY [place], [place] [address] 03/09/2024 10:30 AM EDT Infusion Hematology Oncology at [address] [phone] documented as of this encounter Goals Goal Patient Goal Type Associated Problems Recent Progress Patient-Stated? Author DH Home Medication Compliance and Understanding Patient Facing Action Plan On track( 019 3:22 PM EST) Ivana Ashraf, [facility] Note: Remain 95% or better adherent to chemotherapy without severe side effects as assessed by days supply and patient reported adverse events at each refill documented as of this encounter Procedures Procedure Name Priority Date/Time Associated Diagnosis Comments LAB SCAN 08/18/2022 12:00 AM EST documented in this encounter Results * SCAN DOC: LAB (08/18/2022 12:00 AM EST) Narrative 08/18/2022 12:00 AM EST Ordered by an unspecified provider. 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 documented in this encounter Care Teams Rivet Spinner Relationship Specialty Start Date End Date Jerzy Vidal MD [address] [place] [address] [place] [address] PCP - [facility] 12/04/18 documented as of this encounter
--- OUTSIDE RECORDS SUMMARY | 2024-02-24 01:17 | XMS_ITS | Encounter Summary ---
Author Organization [facility] Address [facility] [place] [address] Care Team Providers Care Records Management Technician Name Role Phone Jerzy Vidal MD Primary Care Provider [phone] Encounter Details Date Type Department Care Team (Latest Contact Info) Description 09/16/2022 Travel Social History Tobacco Use Types Packs/Day [...] AM EDT Office Visit Hematology/Oncology at [address] [phone] Shon Schneider MD [facility] [place] [address] Ciara Pitts APRN [address] [place] [address] DR HEMATOLOGY AND ONCOLOGY [place], [place] [phone] 02/24/2024 9:30 AM EDT Infusion Hematology Oncology at [address] [phone] 03/02/2024 11:00 AM EDT Office Visit Hematology/Oncology at [address] [phone] Shon Schneider MD [facility] [place] [address] Ciara Pitts, [address] HEMATOLOGY AND ONCOLOGY [place], [place] [address] 03/02/2024 12:30 PM EDT Infusion Hematology Oncology at [address] [phone] 03/09/2024 10:00 AM EDT Office Visit Hematology/Oncology at [address] [phone] Shon Schneider MD [facility] [place] [address] HEMATOLOGY AND ONCOLOGY [place], [place] [address] 03/09/2024 10:30 AM EDT Infusion Hematology Oncology at [address] [phone] documented as of this encounter Goals Goal [...] on filedocumented in this encounter Care Teams Records Management Technician Relationship Specialty Start Date End Date Jerzy Vidal MD [address] [place] [address] [place] [address] PCP - [facility] Medicine 12/04/18 documented as of this encounter
--- OUTSIDE RECORDS SUMMARY | 2024-02-24 01:17 | XMS_ITS | Encounter Summary ---
Author Organization [facility] [place] [address] Care Team Providers Care Mud Boss Name Role Phone Jerzy Vidal MD Primary Care Provider [phone] Reason for Visit * Reason Onset Date Comments Post Procedure Call 06/24/2022 First time g etting Pemetrexed Encounter Details Date Type Department Care Team (Late Contact Info) Description 06/24/2022 Telephone Hematology Oncology at [address] [phone] Eden Vieira RN Post Procedure Call (First time getting Pemetrexed) Social History Tobacco Use Types Packs/Day Years Used Date Smoking Tobacco: Never Smokeless Tobacco: Never Sex and Gender Information Value Date Recorded Sex Assigned at Not on file Gender Identity Not on file Sexual Orientation Not on file documented as of this encounter Miscellaneous Notes * Telephone Encounter - Eden Vieira RN - 06/24/2022 11:22 AM EST LM for pt to call with any questions or concerns. ----- Message from Ute Chacon RN sent at 06/23/2022 4:07 PM EST ----- Regarding: FIRST TIME PEMETREXED Monica received first infusion of pemetrexed and B12 injection. documented in this encounter Plan of Treatment Upcoming Encounters Date Type Department Care Team (Late Contact Info) Description 02/24/2024 9:00 AM EDT Office Visit Hematology/Oncology at [address] [phone] Shon Schneider MD [facility] [place] [address] [address] HEMATOLOGY [place] [address] 02/24/2024 9:30 AM EDT Infusion Hematology Oncology at [address] [phone] 03/02/2024 11:00 AM EDT Office Visit Hematology/Oncology at [address] [phone] Shon Schneider MD [facility] [place] [address] [address] HEMATOLOGY AND ONCOLOGY [place], [place] [address] 03/02/2024 12:30 PM EDT Infusion Hematology Oncology at [address] [phone] 03/09/2024 10:00 AM EDT Office Visit Hematology/Oncology at [address] [phone] Shon Schneider MD [facility] [place] [address] HEMATOLOGY AND ONCOLOGY [place], [place] [address] 03/09/2024 10:30 AM EDT Infusion Hematology Oncology at [address] [phone] documented as of this encounter Goals Goal [...] on filedocumented in this encounter Care Teams Mud Boss Relationship Specialty Start Date End Date Jerzy Vidal MD [address] [place] [address] [place] [address] PCP - [facility] Medicine 12/04/18 documented as of this encounter
--- OUTSIDE RECORDS SUMMARY | 2024-02-24 01:17 | XMS_ITS | Encounter Summary ---
Author Organization [facility] [place] [address] Care Team Providers Care Assistant Import Manager Name Role Phone Jerzy Vidal MD Primary Care Provider [phone] Reason for Referral * Home Health Care (Routine) - Closed Specialty Diagnoses / Procedures Referred By Franklyn del rio Referred To Contact Diagnoses Thymic carcinoma Generalized edema Generalized weakness Ciara Pitts APRN [address] [place] [address] [place] [address] Referral ID Status Reason Start Date Expiration Date V isits Requested Visits Authorized [id number] Closed Consult, Test & Treat 08/12/2022 02/08/[phone] Encounter Details Date Type Department Care Team (Late st Contact Info) Description 08/12/2022 Orders Only Hematology/Oncology at [address] [phone] Ciara Pitts [address] [place] [address] Thymic carcinoma; Generalized edema; Generalized weakness Social History Tobacco Use Types Packs/Day Years [...] 9:00 AM EDT Office Visit Hematology/Oncology at [address] [phone] Shon Schneider MD [facility] [place] [address] Ciara Pitts [address] HEMATOLOGY AND ONCOLOGY [place], [place] [address] 02/24/2024 9:30 AM EDT Infusion Hematology Oncology at [address] [phone] 03/02/2024 11:00 AM EDT Office Visit Hematology/Oncology at [address] [phone] Shon Schneider MD [facility] [place] [address] Ciara Pitts [address] HEMATOLOGY AND ONCOLOGY [place], [place] [address] 03/02/2024 12:30 PM EDT Infusion Hematology Oncology at [address] [phone] 03/09/2024 10:00 AM EDT Office Visit Hematology/Oncology at [address] [phone] Shon Schneider MD [facility] [place] [address] Ciara Pitts [address] HEMATOLOGY AND ONCOLOGY [place], [place] [address] 03/09/2024 10:30 AM EDT Infusion Hematology Oncology at [address] [phone] Scheduled Referrals Name Type Priority Associated Diagnoses Orde r Schedule Referral to Home Health Outpatient Referral Routine Thymic carcinoma Generalized edema Generalized weakness Ordered: 08/12/2022 documented as of this encounter Goals Goal Patient Goal Type Associated Problems Recent Progress Patient-Stated? Author DH Home Medication Compliance and Understanding Patient Facing Action Plan On track( 019 3:22 PM EST) No Ivana Vanegas, [facility] Note: Remain 95% or better adherent to chemotherapy without severe side effects as assessed by days supply and patient reported adverse events at each refill documented as of this encounter Visit Diagnoses Diagnosis Thymic carcinoma Malignant neoplasm of thymus Generalized edema Edema Generalized weakness Other malaise and fatigue Thymic carcinoma Malignant neoplasm of thymus documented in this encounter Care Teams Assistant Import Manager Relationship Specialty Start Date End Date Jerzy Vidal MD [address] [place] [address] [place] [address] PCP - [facility] Medicine 12/04/18 documented as of this encounter
--- OUTSIDE RECORDS SUMMARY | 2024-02-24 01:17 | XMS_ITS | Encounter Summary ---
Author Organization [facility] [place] [address] Care Team Providers Care Watch Dial Stoner Name Role Phone Jerzy Vidal MD Primary Care Provider [phone] Reason for Visit * Reason Onset Date Comments Labs Only 08/18/2022 Encounter Details Date Type Department Care Team (Late Contact Info) Description 08/18/2022 Telephone Hematology/Oncology at [address] [phone] Tatiana Jenkins, RN Labs Only Social History Tobacco Use Types Packs/Day Years Used Date Smoking Tobacco: Never Smokeless Tobacco: Never Sex and Gender Information Value Date Recorded Sex Assigned at Not on file Gender Identity Not on file Sexual Orientation Not on file documented as of this encounter Miscellaneous Notes * Telephone Encounter - Tatiana Jenkins RN - 08/18/2022 4:16 PM EST CBC sent to provider per request. documented in this encounter Plan of Treatment Upcoming Encounters Date Type Department Care Team (Late Contact Info) Description 02/24/2024 9:00 AM EDT Office Visit Hematology/Oncology at [address] [phone] Shon Schneider MD [facility] [place] [address] [address] HEMATOLOGY AND [place]COLOGY [place], [place] [address] [phone] 02/24/2024 9:30 AM EDT Infusion Hematology Oncology at [address] [phone] 03/02/2024 11:00 AM EDT Office Visit Hematology/Oncology at [address] [phone] 94 Shon Schneider MD [facility] [place] [address] HEMATOLOGY AND ONCOLOGY [place], [place] [phone] 03/02/2024 12:30 PM EDT Infusion Hematology Oncology at [address] [phone] 03/09/2024 10:00 AM EDT Office Visit Hematology/Oncology at [address] [phone] 56 Shon Schneider MD [facility] [place] [address] [address] HEMATOLOGY AND ONCOLOGY [place], [place] [address] 03/09/2024 10:30 AM EDT Infusion Hematology Oncology at [address] [phone] documented as of this encounter Goals Goal Patient Goal Type Associated Problems Recent Progress Patient-Stated? Author DH Home Medication Compliance and Understanding Patient Facing Action Plan On track( 019 3:22 PM EST) Ivana Ashraf, [facility] Note: Remain 95% or better adherent to chemotherapy without severe side effects as assessed by days supply and patient reported adverse events at each refill documented as of this encounter Visit Diagnoses Not on filedocumented in this encounter Care Teams Watch Dial Stoner Relationship Specialty Start Date End Date Jerzy Vidal MD [address] [place] [address] [place] [address] PCP - [facility] Medicine 12/04/18 documented as of this encounter
--- OUTSIDE RECORDS SUMMARY | 2024-02-24 01:17 | XMS_ITS | Encounter Summary ---
Author Organization [facility] [place] [address] Care Team Providers Care Cook Helper Vegetable Name Role Phone Jerzy Vidal MD Primary Care Provider [phone] Reason for Visit * Reason Onset Date Comments Abnormal Labs 08/11/2022 Encounter Details Date Type Department Care Team (Late st Contact Info) Description 08/11/2022 Telephone Hematology/Oncology at [address] [phone] Boaz Amos RN Abnormal Labs Social History Tobacco Use Types Packs/Day Years Used Date Smoking Tobacco: Never Smokeless Tobacco: Never Sex and Gender Information Value Date Recorded Sex Assigned at Not on file Gender Identity Not on file Sexual Orientation Not on file documented as of this encounter Miscellaneous Notes * Telephone Encounter - Boaz Amos RN - 08/12/2022 10:08 AM EST Called and got update from daughter Cass, as pt is resting because she was up all night at [facility], given 3 units PRBCs in ED, and got home at 4 AM. Daughter wants her to come live with her because she states she has had a cognitive and physical decline. She needed lots of assistance getting up her stairs. She has increased fluid retention, ED gave her lasix and noted weeping from BLE. Pt has a FUV tomorrow, Cass concerned with her ability to get there. We planned to leave it as FUV for now, but if pt cannot get here we will have provider call her for TOVEdmund Cass was thankful for the follow up. * Telephone Encounter - Boaz Amos RN - 08/11/2022 2:37 PM EST [facility] lab called to report critical HGB 5.7 and HCT 18.9 (PLT 233K, WBC 4.1). Reported to Ciara Pitts APRN who spoke with Pt and advised to go to [facility] ED. Pt will call daughter to bring her and ifshe cannot reach daughter she will call 911 for transport. [facility] ED called and given report. 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 documented in this encounter Plan of Treatment Upcoming Encounters Date Type Department Care Team (Late st Contact Info) Description 02/24/2024 9:00 AM EDT Office Visit Hematology/Oncology at [address] [phone] Shon Schneider MD [facility] [place] [address] Ciara Pitts APRN [address] [place] [address] DR HEMATOLOGY AND ONCOLOGY [place], [place] [address] 02/24/2024 9:30 AM EDT Infusion Hematology Oncology at [address] [phone] 03/02/2024 11:00 AM EDT Office Visit Hematology/Oncology at [address] [phone] Shon Schneider MD [facility] [place] [address] [address] HEMATOLOGY AND ONCOLOGY [place], [place] [id number] 03/02/2024 12:30 PM EDT Infusion Hematology Oncology at [address] [phone] 03/09/2024 10:00 AM EDT Office Visit Hematology/Oncology at [address] [phone] Shon Schneider MD [facility] [place] [address] HEMATOLOGY AND ONCOLOGY [place], [place] [phone] 03/09/2024 10:30 AM EDT Infusion Hematology Oncology at [address] [phone] documented as of this encounter Goals Goal Patient Goal Type Associated Problems Recent Progress Patient-Stated? Author DH Home Medication Compliance and Understanding Patient Facing Action Plan On track( 019 3:22 PM EST) Ivana Ashraf, [facility] Note: Remain 95% or better adherent to chemotherapy without severe side effects as assessed by days supply and patient reported adverse events at each refill documented as of this encounter Visit Diagnoses Not on filedocumented in this encounter Care Teams Cook Helper Vegetable Relationship Specialty Start Date End Date Jerzy Vidal MD [address] [place] [address] [place] [address] PCP - [facility] Medicine 12/04/18 documented as of this encounter
--- OUTSIDE RECORDS SUMMARY | 2024-02-24 01:17 | XMS_ITS | Encounter Summary ---
Author Organization Formerly [facility] [place] [address] Care Team Providers Care Banner Painter Name Role Phone Jerzy Vidal MD Primary Care Provider [phone] Encounter Details Date Type Department Care Team (Late Contact Info) Description 05/26/2022 4:15 PM EST Ancillary [place] [address] Jerzy Vidal MD [address] [place] [phone] Social History Tobacco Use Types Packs/Day Years [...] AM EDT Office Visit Hematology/Oncology at [address] [phone] Shon Schneider MD [facility] [place] [address] Ciara Pitts APRN [address] [place] [address] DR HEMATOLOGY AND ONCOLOGY [place], [place] [address] 02/24/2024 9:30 AM EDT Infusion Hematology Oncology at [address] [phone] 03/02/2024 11:00 AM EDT Office Visit Hematology/Oncology at [address] [phone] Shon Schneider MD [facility] [place] [address] [address] HEMATOLOGY AND ONCOLOGY [place], [place] [address] 03/02/2024 12:30 PM EDT Infusion Hematology Oncology at [address] [phone] 03/09/2024 10:00 AM EDT Office Visit Hematology/Oncology at [address] [phone] Shon Schneider MD [facility] [place] [address] [address] [place] [address] 03/09/2024 10:30 AM EDT Infusion Hematology Oncology at [address] [phone] documented as of this encounter Goals Goal [...] FILM LIBRARY STORAGE ONLY CT CHEST Routine 05/26/2022 4:12 PM EST documented in this encounter Results * Film Library- Storage Only CT Chest (05/26/2022 4:12 PM EST) Narrative HELDER - 05/26/2022 4:12 PM EST This exam is auto-finalizing. It's purpose is for storage only. Jerzy Vidal MD IM FILM LIBRARY ORD ERABLES Performing Organization Address City/State/[facility] Co de Phone Number [place], [place] documented in this encounter Visit Diagnoses Not on filedocumented in this encounter Care Teams Banner Painter Relationship Specialty Start Date End Date Jerzy Vidal MD [address] [place] [address] [place] [address] PCP - [facility] Medicine 12/04/18 documented as of this encounter
--- OUTSIDE RECORDS SUMMARY | 2024-02-24 01:17 | XMS_ITS | Encounter Summary ---
Author Organization [facility] Address [facility] [place] [address] Care Team Providers Care Child Neurologist Name Role Phone Jerzy Vidal MD Primary Care Provider [phone] Encounter Details Date Type Department Care Team (Late st Contact Info) Description 06/18/2022 9:00 AM EST TH Visit (TeleHealth) Hematology/Oncology at [address] [phone] Shon Schneider MD [facility] DR ONCOLOGY [address] Ciara Pitts APRN [address] [place] [address] DR HEMATOLOGY AND ONCOLOGY [place], [place] [phone] Thymic carcinoma Social History Tobacco Use Types Packs/Day Years Used Date Smoking Tobacco: Never Smokeless Tobacco: Never Sex and Gender Information Value Date Recorded Sex Assigned at Not on file Gender Identity Not on file Sexual Orientation Not on file documented as of this encounter Progress Notes * Shon Schneider MD - 06/18/2022 9:00 AM EST Subjective: Patient ID: Monica Jaramillo [...] pleural effusion with compression atelectasis. transferred to [facility] for further evaluation and workup and [...] B. Biopsy of mediastinal mass 03/29 Path ([facility] review) - Mediastinum, mass, biopsy: 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 [facility] - CONSULT SLIDES FROM [facility]; [place], [place]: A. MEDIASTINUM, MASS, BIOPSY ([id number]; 03/22/2017): ? 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 ?Immunohistochemistry performed at the outside institution and reviewed at [facility] demonstrates the following staining profile in lesional cells: ? Positive - AE1/AE3, p40, PAX8, CD117, CD5(multifocal), CK7(scattered cells), synaptophysin, chromogranin ? Negative - CK20, TTF-1, GATA3, CD34 ? The immunohistochemical profile supports the above diagnosis. ? Ki67 (MIB-1) proliferation index performed at the referring institution and reviewed at [facility] is focally up to ~30%. NOTE: While diffuse synaptophysin and chromogranin expression is unusual for conventional thymic carcinoma, the overall histomorphology and immunophenotype is most in keeping with THYMIC SQUAMOUS CARCINOMA.?The extent of PAX8 and CD117 staining would be unusual for Nut carcinoma. B. MEDIASTINUM, ANTERIOR, 4.5 CM, ULTRASOUND GUIDED FINED NEEDLE ASPIRATION ([id number]; 03/22/17): The cytologic preparations were not reviewed [...] Second opinion with Dr. Roddy Vega in [place]. They reviewed the pathology and concurred they [...] therapy with pembrolizumab L. CT c/a/p 11/06/19 ([facility] second read) - IMPRESSION 1. Worsening left-sided [...] atrial fibrillation 3. HTN 4. Echocardiogram 06/20/18 ([facility]) - Summary: 1. Preserved LV function [...] is via telehealth. Monica is by herself. Her daughter was going to give her a ride buther car broke down, so she is not able to come. She is feeling well overall. Her appetite is good. She has no pain or SOB. The LE edema has stayed about the same is last visit. She doesn't add any salt to her food. If she is on her feet a lot, she has some stiffness in her left knee moreso than theright. She had her vitals done at [facility] yesterday- Weight is a little lower at 230.2# (233#), O2 - 97%, BP -120/68, HR - 78 Soc Hx: , lives in [place], [place] Tob - Never Etoh - rare [...] Psychiatric: Mood and Affect: Mood normal. Labs: (06/16/22): WBC/ANC - 4.07/3099, Hgb/Hct - 11.4/36.9, [...] pembrolizumab. I spoke with Dr. Vega at [facility]. There were no clinical trials [...] also spoke with Dr. Shon Ramon at [facility]. He agreed that gemcitabine plus capecitabine is [...] and is in agreement with going ahead. We had planned to start today but she could not get a ride. The infusion has been moved to 06/23/22. We will plan to go ahead then, and see her prior to cycle 2. She will start folic acid today, 1000 mcg/day. She knows that she will receive a B12 injection with the first dose and every third cycle. documented in this encounter Plan of Treatment Upcoming Encounters Date Type Department Care Team (Late st Contact Info) Description 02/24/2024 9:00 AM EDT Office Visit Hematology/Oncology at [address] [phone] Shon Schneider MD [facility] [place] [address] [address] HEMATOLOGY AND ONCOLOGY [place], [place] [address] [phone] 02/24/2024 9:30 AM EDT Infusion Hematology Oncology at [address] [phone] 03/02/2024 11:00 AM EDT Office Visit Hematology/Oncology at [address] [phone] Shon Schneider MD [facility] [place] [address] HEMATOLOGY AND ONCOLOGY [place], [place] [address] [phone] 03/02/2024 12:30 PM EDT Infusion Hematology Oncology at [address] [phone] 03/09/2024 10:00 AM EDT Office Visit Hematology/Oncology at [address] [phone] Shon Schneider MD [facility] [address] [place] [address] [address] HEMATOLOGY AND ONCOLOGY [place], [place] [address] 03/09/2024 10:30 AM EDT Infusion Hematology Oncology at [address] [phone] documented as of this encounter Goals Goal Patient Goal Type Associated Problems Recent Progress Patient-Stated? Author DH Home Medication Compliance and Understanding Patient Facing Action Plan On track( 019 3:22 PM EST) Ivana Ashraf, [facility] Note: Remain 95% or better adherent to chemotherapy without severe side effects as assessed by days supply and patient reported adverse events at each refill documented as of this encounter Visit Diagnoses Diagnosis 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 documented in this encounter Care Teams Child Neurologist Relationship Specialty Start Date End Date Jerzy Vidal MD [address] [place] [address] [place] [address] PCP - [facility] Medicine 12/04/18 documented as of this encounter
--- OUTSIDE RECORDS SUMMARY | 2024-02-24 01:17 | XMS_ITS | Encounter Summary ---
Author Organization [facility] [place] [address] Care Team Providers Care Radial Drill Press Set Up Operator Name Role Phone Jerzy Vidal MD Primary Care Provider [phone] Encounter Details Date Type Department Care Team (Late Contact Info) Description 05/14/2022 11:00 AM EST Telephone Hematology/Oncology at [address] [phone] [facility] DR HEMATOLOGY [place] [address] Social History Tobacco Use Types Packs/Day Years Used Date Smoking Tobacco: Never Smokeless Tobacco: Never Sex and Gender Information Value Date Recorded Sex Assigned at Not on file Gender Identity Not on file Sexual Orientation Not on file documented as of this encounter Miscellaneous Notes * Telephone Encounter - Scarlet Gates RD - 05/14/2022 2:55 PM EST Nutrition Note Attempted to reach patient over the phone today. Left voicemail with callback number as no one answered. Her weight has fluctuated and this is most likely related to fluid changes rather than poor PO intake per RN as patient has had anasarca and was put on Lasix. Will be available to see patient as needed. documented in this encounter Plan of Treatment Upcoming Encounters Date Type Department Care Team (Late Contact Info) Description 02/24/2024 9:00 AM EDT Office Visit Hematology/Oncology at [address] [phone] Shon Schneider MD [facility] [place] [address] [address] HEMATOLOGY AND ONCOLOGY [place], [place] [address] 02/24/2024 9:30 AM EDT Infusion Hematology Oncology at [address] [phone] 03/02/2024 11:00 AM EDT Office Visit Hematology/Oncology at [address] [phone] Shon Schneider MD [facility] [place] [address] HEMATOLOGY AND ONCOLOGY [place], [place] [phone] 03/02/2024 12:30 PM EDT Infusion Hematology Oncology at [address] [phone] 03/09/2024 10:00 AM EDT Office Visit Hematology/Oncology at [address] [phone] Shon Schneider MD [facility] [place] [address] Ciara Pitts, [address] HEMATOLOGY AND ONCOLOGY [place], [place] [address] 03/09/2024 10:30 AM EDT Infusion Hematology Oncology at [address] [phone] documented as of this encounter Goals Goal Patient Goal Type Associated Problems Recent Progress Patient-Stated? Author DH Home Medication Compliance and Understanding Patient Facing Action Plan On track( 019 3:22 PM EST) Ivana Ashraf, [facility] Note: Remain 95% or better adherent to chemotherapy without severe side effects as assessed by days supply and patient reported adverse events at each refill documented as of this encounter Visit Diagnoses Not on filedocumented in this encounter Care Teams Radial Drill Press Set Up Operator Relationship Specialty Start Date End Date Jerzy Vidal MD [address] [place] [address] [place] [address] PCP - [facility] Medicine 12/04/18 documented as of this encounter
--- OUTSIDE RECORDS SUMMARY | 2024-02-24 01:17 | XMS_ITS | Encounter Summary ---
Author Organization [facility] [place] [address] Care Team Providers Care Fiberglass Fabricator Name Role Phone Jerzy Vidal MD Primary Care Provider [phone] Reason for Visit * Reason Comments Medication Refill Encounter Details Date Type Department Care Team (Late Contact Info) Description 10/12/2022 Refill [place]ematology [place] [address] Shon Schneider MD [facility] [place] [address] Thymic carcinoma; Hypomagnesemia; Hypothyroidism, unspecified type Social History Tobacco Use [...] 9:00 AM EDT Office Visit Hematology/Oncology at [address] [phone] Shon Schneider MD [facility] [place] [address] Ciara Pitts APRN [address] [place] [address] DR HEMATOLOGY [place] [address] 02/24/2024 9:30 AM EDT Infusion Hematology Oncology at [address] [phone] 03/02/2024 11:00 AM EDT Office Visit Hematology/Oncology at [address] [phone] Shon Schneider MD [facility] [place] [address] HEMATOLOGY AND ONCOLOGY [place], [place] [phone] 03/02/2024 12:30 PM EDT Infusion Hematology Oncology at [address] [phone] 03/09/2024 10:00 AM EDT Office Visit Hematology/Oncology at [address] [phone] Shon Schneider MD [facility] [place] [address] HEMATOLOGY [place] [address] 03/09/2024 10:30 AM EDT Infusion Hematology Oncology at [address] [phone] documented as of this encounter Goals Goal [...] Disorders of magnesium metabolism Hypothyroidism, unspecified type Thymic carcinoma Malignant neoplasm of thymus documented in this encounter Care Teams Fiberglass Fabricator Relationship Specialty Start Date End Date Jerzy Vidal MD [address] [place] [address] [place] [address] PCP - [facility] Medicine 12/04/18 documented as of this encounter
--- OUTSIDE RECORDS SUMMARY | 2024-02-24 01:17 | XMS_ITS | Encounter Summary ---
Author Organization [facility] Address [facility] [place] [address] Care Team Providers Care Reporting Developer Name Role Phone Jerzy Vidal MD Primary Care Provider [phone] Encounter Details Date Type Department Care Team (Latest Contact Info) Description 06/23/2022 Travel Social History Tobacco Use Types Packs/Day [...] AM EDT Office Visit Hematology/Oncology at [address] [phone] Shon Schneider MD [facility] [place] [address] Ciara Pitts APRN [address] [place] [address] DR HEMATOLOGY AND ONCOLOGY [place], [place] [phone] 02/24/2024 9:30 AM EDT Infusion Hematology Oncology at [address] [phone] 03/02/2024 11:00 AM EDT Office Visit Hematology/Oncology at [address] [phone] Shon Schneider MD [facility] [place] [address] Ciara Pitts, [address] HEMATOLOGY AND ONCOLOGY [place], [place] [address] 03/02/2024 12:30 PM EDT Infusion Hematology Oncology at [address] [phone] 03/09/2024 10:00 AM EDT Office Visit Hematology/Oncology at [address] [phone] Shon Schneider MD [facility] [place] [address] HEMATOLOGY AND ONCOLOGY [place], [place] [address] 03/09/2024 10:30 AM EDT Infusion Hematology Oncology at [address] [phone] documented as of this encounter Goals Goal Patient Goal Type Associated Problems Recent Progress Patient-Stated? Author DH Home Medication Compliance and Understanding Patient Facing Action Plan On track( 019 3:22 PM EST) Ivana Ashraf, [facility] Note: Remain 95% or better adherent to chemotherapy without severe side effects as assessed by days supply and patient reported adverse events at each refill documented as of this encounter Visit Diagnoses Not on filedocumented in this encounter Care Teams Reporting Developer Relationship Specialty Start Date End Date Jerzy Vidal MD [address] [place] [address] [place] [address] PCP - [facility] Medicine 12/04/18 documented as of this encounter
--- OUTSIDE RECORDS SUMMARY | 2024-02-24 01:17 | XMS_ITS | Encounter Summary ---
Author Organization [facility] Address [facility] [place] [address] Care Team Providers Care Bakery Manager Name Role Phone Jerzy Vidal MD Primary Care Provider [phone] Encounter Details Date Type Department Care Team (Late st Contact Info) Description 10/22/2022 Telephone Hematology [place] [address] Brittany Marie MD [facility] DR HEMATOLOGY/[place] [address] Social History Tobacco Use Types Packs/Day Years [...] encounter Miscellaneous Notes * Telephone Encounter - Brittany Marie MD - 10/22/2022 3:38 PM EDT I had a phone call from Dr. Mcnair at [facility] ED. 67 yo female with heavily treated thymic cancer, followed by Dr. Schneider at [facility] hem onc office. She is currently on pemetrexed since Jun 2022 and her last treatment was 50% dose reduced on 10/08/22. She visited ED with worsening edema and hemoptysis. She had 4 table spoon amount of bloody sputum and had multiple episodes in the ED. She does not require oxygen at baseline but she requires 3-4 of L2 in the ED. Otherwise, vital signs are stable. Labs show Plt 3K (it was 68K on 10/13/22), Hb 7.1, BNP 10K, Cre 2.1 (baseline ~1), INR, PTT And fibrinogen is pending. CT showed new pleural effusion and atelectasis. Due to the telephone consult, I could not perform full evaluation of the patient. With this limitation, I think she requires high acuity of care, which would involve workup for acute thrombocytopeniawith possible airway bleeding. I would send peripheral blood smear and fibrinogen. I would consult hematology for this new thrombocytopenia. I would consult pulmonology/ICU for this new oxygen requirement with concerning hemoptysis and concerning airway patency. Thrombocytopenia could be caused by many etiologies but among them, we should exclude DIC, TTP, HUSand HIT emergently. She did not receive heparin product recently. Her mental status has been fine, no fever. TTP is a possibility and peripheral blood smear would give us more impression. DIC is morelikely than TTP given active cancer. INR, PTT and fibrinogen would give us more input. Indeed, chemotherapy could cause thrombocytopenia, but I would not think half dose of pemetrexed can cause this severe thrombocytopenia. I would recheck platelet without EDTA and would transfuse platelet if the result is confirmed. Overall, she would need higher acuity of care, and transferring to [facility] would be warranted. Since oncology does not have a bed at [facility], I advised Dr. Mcnair to contact hospital medicine for possible transfer. CC: Dr. Schneider and [facility] clinic Brittany Marie MD [facility] Hematology Oncology Fellow Page [phone] documented in this encounter Plan of Treatment Upcoming Encounters Date Type Department Care Team (Late st Contact Info) Description 02/24/2024 9:00 AM EDT Office Visit Hematology/Oncology at [address] [phone] Shon Schneider MD [facility] [place] [address] [address] HEMATOLOGY AND ONCOLOGY [place], [place] [address] 02/24/2024 9:30 AM EDT Infusion Hematology Oncology at [address] [phone] 03/02/2024 11:00 AM EDT Office Visit Hematology/Oncology at [address] [phone] 75 Shon Schneider MD [facility] [place] [address] [address] HEMATOLOGY AND ONCOLOGY [place], [place] [id number] 03/02/2024 12:30 PM EDT Infusion Hematology Oncology at [address] [phone] 03/09/2024 10:00 AM EDT Office Visit Hematology/Oncology at [address] [phone] 67 Shon Schneider MD [facility] [place] [address] [address] HEMATOLOGY AND ONCOLOGY [place], [place] [address] 03/09/2024 10:30 AM EDT Infusion Hematology Oncology at [address] [phone] documented as of this encounter Goals Goal [...] on filedocumented in this encounter Care Teams Bakery Manager Relationship Specialty Start Date End Date Jerzy Vidal MD [address] [place] [address] [place] [address] PCP - [facility] Medicine 12/04/18 documented as of this encounter
--- OUTSIDE RECORDS SUMMARY | 2024-02-24 01:17 | XMS_ITS | Encounter Summary ---
Author Organization [facility] [place] [address] Care Team Providers Care Enterprise Application Analyst Name Role Phone Jerzy Vidal MD Primary Care Provider [phone] Encounter Details Date Type Department Care Team (Late Contact Info) Description 06/16/2022 Orders Only [place]ematology [place] [address] Shon Schneider MD [facility] [place] [address] Social History Tobacco Use Types Packs/Day Years [...] AM EDT Office Visit Hematology/Oncology at [address] [phone] Shon Schneider MD [facility] [place] [address] Ciara Pitts APRN [address] [place] [address] [place] [address] 02/24/2024 9:30 AM EDT Infusion Hematology Oncology at [address] [phone] 03/02/2024 11:00 AM EDT Office Visit Hematology/Oncology at [address] [phone] Shon Schneider MD [facility] [place] [address] [place] [address] 03/02/2024 12:30 PM EDT Infusion Hematology Oncology at [address] [phone] 03/09/2024 10:00 AM EDT Office Visit Hematology/Oncology at [address] [phone] Shon Schneider MD [facility] [place] [address] [place] [address] 03/09/2024 10:30 AM EDT Infusion Hematology Oncology at [address] [phone] documented as of this encounter Goals Goal Patient Goal Type Associated Problems Recent Progress Patient-Stated? Author DH Home Medication Compliance and Understanding Patient Facing Action Plan On track( 019 3:22 PM EST) Ivana Ashraf, [facility] Note: Remain 95% or better adherent to chemotherapy without severe side effects as assessed by days supply and patient reported adverse events at each refill documented as of this encounter Visit Diagnoses Not on filedocumented in this encounter Care Teams Enterprise Application Analyst Relationship Specialty Start Date End Date Jerzy Vidal MD [address] [place] [address] [place] [address] PCP - [facility] Medicine 12/04/18 documented as of this encounter
--- OUTSIDE RECORDS SUMMARY | 2024-02-24 01:17 | XMS_ITS | Encounter Summary ---
Author Organization [facility] Address [facility] [place] [address] Care Team Providers Care Company Manager Name Role Phone Jerzy Vidal MD Primary Care Provider [phone] Encounter Details Date Type Department Care Team (Late st Contact Info) Description 09/16/2022 10:30 AM EDT Office Visit Hematology/Oncology at [address] [phone] Shon Schneider MD [facility] [place] [address] Thymic carcinoma; Drug-induced anemia Social History Tobacco Use Types Packs/Day Years Used Date Smoking Tobacco: Never Smokeless Tobacco: Never Sex and Gender Information Value Date Recorded Sex Assigned at Not on file Gender Identity Not on file Sexual Orientation Not on file documented as of this encounter Last Filed Vital Signs Vital Sign Reading Time Taken Comments Blood Pressure 102/61 09/16/2022 10:38 AM EDT Pulse 76 09/16/2022 10:38 AM EDT Temperature 36.8 ??C (98.2 ??F) 09/16/2022 1 0:38 AM EDT Respiratory Rate 18 09/16/2022 10:3 8 AM EDT Oxygen Saturation 95% 09/16/2022 10: 38 AM EDT Inhaled Oxygen Concentration - - Weight 110.3 kg (243 lb 3.2 oz) 023 10:38 AM EDT Height 175.3 cm (5' 9.02) 09/16/2022 1 0:38 AM EDT Body Mass Index 35.9 09/16/2022 10:38 AM EDT documented in this encounter Progress Notes * Shon Schneider MD - 09/16/2022 10:30 AM EDT Subjective: Patient ID: Monica Jaramillo [...] pleural effusion with compression atelectasis. transferred to [facility] for further evaluation and workup [...] B. 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 [facility] review - CONSULT SLIDES FROM [facility]; [place], [place]: A. MEDIASTINUM, MASS, BIOPSY ([id number]; 03/22/2017): ? 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 ?Immunohistochemistry performed at the outside institution and reviewed at [facility] demonstrates the following staining profile in lesional cells: ? Positive - AE1/AE3, p40, PAX8, CD117, CD5(multifocal), CK7(scattered cells), synaptophysin, chromogranin ? Negative - CK20, TTF-1, GATA3, CD34 ? The immunohistochemical profile supports the above diagnosis. ? Ki67 (MIB-1) proliferation index performed at the referring institution and reviewed at [facility] is focally up to ~30%. NOTE: While diffuse synaptophysin and chromogranin expression is unusual for conventional thymic carcinoma, the overall histomorphology and immunophenotype is most in keeping with THYMIC SQUAMOUS CARCINOMA.?The extent of PAX8 and CD117 staining would be unusual for Nut carcinoma. B. MEDIASTINUM, ANTERIOR, 4.5 CM, ULTRASOUND GUIDED FINED NEEDLE ASPIRATION ([id number]; 03/22/17): The cytologic preparations were not reviewed [...] Second opinion with Dr. Roddy Vega in [place]. They reviewed the pathology and concurred they [...] therapy with pembrolizumab L. CT c/a/p 11/06/19 ([facility] second read) - IMPRESSION 1. Worsening left-sided [...] W. 06/23/22 - Began therapy with pemetrexed 2. H/o atrial fibrillation 3. HTN 4. [...] Cass. She is feeling pretty well overall. Her appetite is good. She has no pain or SOB. Her weight is down but she has been taking lasix for the LE edema which has improved, although is not gone. The sores and redness of the lower legs has improved. She continues to have stiffness in her left knee felt to be related to degenerative change and this limits her mobility. Her strength is a bit better and she has been able to be up and around more. Soc Hx: , lives in [place], [place] Tob - Never Etoh - rare [...] scleral icterus. Cardiovascular: Rate and Rhythm: Normal rate. Pulmonary: Effort: No respiratory distress. Skin: General: Skin is warm and dry. Findings: No rash. Neurological: General: No focal deficit present. Mental Status: She is alert. Psychiatric: Mood and Affect: Mood normal. Labs:WBC/ANC - 5.10/4299, Hgb/Hct - 10/34.5, Plts - 168,000. BUN/Cr - 26/1.27. Glucose - 107, K - 3.1. alb - 3.1, t bili - 1.2, Mg - 1.7. Lytes and LFTs o/w unremarkable (06/16/22): WBC/ANC - 4.07/3099, Hgb/Hct - 11.4/36.9, [...] pembrolizumab. I spoke with Dr. Vega at [facility]. There were no clinical trials available [...] also spoke with Dr. Shon Ramon at [facility] [place]. He agreed that gemcitabine plus capecitabine is [...] evaluation for hemolysis was done. The Hgb is better today. Haptoglobin and reticulocyte count cannot be added to the labs from today. I'm not sure how accurate these would be anyway as it has been several weeks since she had the severe anemia but we willcheck a haptobglobin, DEBRA and reticulocyte count. We talked today about options. She very much wants to try to continue the therapy at reduced dose and is tearful when talking about that. She understands that treatment options are limited. I would like to be able to answer the question of whether this represents hemolysis but at this point it doesn't look like that is possible. We have decided to get a restaging CT scan and see her back in 2-3 weeks. This hopefully will allow for a little more time to get back on her feet. Depending on the result of the scan, we could try to proceed with pemetrexed with further dose reduction. Another optionwould be weekly paclitaxel. documented in this encounter Plan of Treatment Upcoming Encounters Date Type Department Care Team (Late st Contact Info) Description 02/24/2024 9:00 AM EDT Office Visit Hematology/Oncology at [address] [phone] Shon Schneider MD [facility] [place] [address] Ciara Pitts APRN [address] [place] [address] [place] [address] 02/24/2024 9:30 AM EDT Infusion Hematology Oncology at [address] [phone] 03/02/2024 11:00 AM EDT Office Visit Hematology/Oncology at [address] [phone] Shon Schneider MD [facility] [place] [address] HEMATOLOGY AND ONCOLOGY [place], [place] [phone] 03/02/2024 12:30 PM EDT Infusion Hematology Oncology at [address] [phone] 03/09/2024 10:00 AM EDT Office Visit Hematology/Oncology at [address] [phone] Shon Schneider MD [facility] [place] [place] [address] [address] [place] [address] 03/09/2024 10:30 AM EDT Infusion Hematology Oncology at [address] [phone] documented as of this encounter Goals Goal Patient Goal Type Associated Problems Recent Progress Patient-Stated? Author DH Home Medication Compliance and Understanding Patient Facing Action Plan On track( 019 3:22 PM EST) Ivana Ashraf, [facility] Note: Remain 95% or better adherent to chemotherapy without severe side effects as assessed by days supply and patient reported adverse events at each refill documented as of this encounter Visit Diagnoses Diagnosis Thymic carcinoma Malignant neoplasm of thymus Drug-induced anemia Other specified anemias Thymic carcinoma Malignant neoplasm of thymus documented in this encounter Care Teams Company Manager Relationship Specialty Start Date End Date Jerzy Vidal MD [address] [place] [address] [place] [address] PCP - [facility] Medicine 12/04/18 documented as of this encounter
--- OUTSIDE RECORDS SUMMARY | 2024-02-24 01:17 | XMS_ITS | Encounter Summary ---
Author Organization [facility] [place] [address] Care Team Providers Care Test Deck Supervisor Name Role Phone Jerzy Vidal MD Primary Care Provider [phone] Reason for Visit * Reason Onset Date Comments Referral, Vna 08/13/2022 Encounter Details Date Type Department Care Team (Late st Contact Info) Description 08/13/2022 Telephone Hematology/Oncology at [address] [phone] Boaz Amos, railway switchman, Vna Social History Tobacco Use Types Packs/Day Years Used Date Smoking Tobacco: Never Smokeless Tobacco: Never Sex and Gender Information Value Date Recorded Sex Assigned at Not on file Gender Identity Not on file Sexual Orientation Not on file documented as of this encounter Miscellaneous Notes * Telephone Encounter - Boaz Amos RN - 08/13/2022 1:44 PM EST Home health referral faxed to [facility] along with [id number], last office note, demos, med list- faxed confirmed. Also, provider wants to check CBC next Tuesday. Called [facility] port draw and they will do it 08/18- they will call pt to set up a time. Sent basket to triage nurse to look for results to review with provider. documented in this encounter Plan of Treatment Upcoming Encounters Date Type Department Care Team (Late st Contact Info) Description 02/24/2024 9:00 AM EDT Office Visit Hematology/Oncology at [address] [phone] Shon Schneider MD [facility] [place] [address] Ciara Pitts [address] HEMATOLOGY AND ONCOLOGY [place], [place] [address] 02/24/2024 9:30 AM EDT Infusion Hematology Oncology at [address] [phone] 03/02/2024 11:00 AM EDT Office Visit Hematology/Oncology at [address] [phone] Shon Schneider MD [facility] [place] [address] Ciara Pitts [address] HEMATOLOGY AND ONCOLOGY [place], [place] [address] 03/02/2024 12:30 PM EDT Infusion Hematology Oncology at [address] [phone] 03/09/2024 10:00 AM EDT Office Visit Hematology/Oncology at [address] [phone] Shon Schneider MD [facility] [place] [address] Ciara Pitts [address] HEMATOLOGY AND ONCOLOGY [place], [place] [address] 03/09/2024 10:30 AM EDT Infusion Hematology Oncology at [address] [phone] documented as of this encounter Goals Goal [...] on filedocumented in this encounter Care Teams Test Deck Supervisor Relationship Specialty Start Date End Date Jerzy Vidal MD [address] [place] [address] [place] [address] PCP - [facility] Medicine 12/04/18 documented as of this encounter
--- OUTSIDE RECORDS SUMMARY | 2024-02-24 01:17 | XMS_ITS | Encounter Summary ---
Author Organization [facility] [place] [address] Care Team Providers Care Adhesive Bandage Machine Operator Name Role Phone Jerzy Vidal MD Primary Care Provider [phone] Reason for Visit * Reason Comments Chemotherapy * Treatment/Therapy Plan Authorization (Routine) - Closed Specialty Diagnoses / Procedures Referred By Franklyn t Referred To Contact Hematology and Oncology Diagnoses Thymic carcinoma Procedures TC PEMETREXED, 10MG, INJECTION (ALIMTA) [id number] ALIMTA Shon Schneider MD [address] [place] [address] [place] [address] Shon Schneider MD [address] [place] [address] [place] [address] Referral ID Status Reason Start Date Expiration Date Visits Re quested Visits Authorized [id number] Closed 10/19/2022 10/30/2022 8 8 Encounter Details Date Type Department Care Team (Late st Contact Info) Description 10/08/2022 12:00 PM EDT Infusion Hematology Oncology at [address] [phone] Thymic carcinoma Social History Tobacco Use Types Packs/Day Years Used Date Smoking Tobacco: Never Smokeless Tobacco: Never Sex and Gender Information Value Date Recorded Sex Assigned at Not on file Gender Identity Not on file Sexual Orientation Not on file documented as of this encounter Progress Notes * Aguilar Licea, RN - 10/08/2022 12:00 PM EDT INFUSION THERAPY ADMINISTRATION NOTES DIAGNOSIS: Thymic cancer CYCLE #: Cycle 3, Day 1 - Pemetrexed REASON FOR VISIT: To receive chemotherapy SUBJECTIVE: Monica offers no complaints today. OBJECTIVE: VSS. Weight is stable from last visit. LAB DATA: WBC - 4.5, Plt Ct - 186, ANC - 3.3, Lytes wnl, BUN/Cr - 17/ 1.2 IV ACCESS: Port accessed without difficulty. Flushes readily with brisk blood return. Pre administration: Chemotherapy orders independently verified for drug name, route, and dosage per patient's height, weight and BSA by AGUILAR BECERRIL, SEBASTIAN, Brionna Andrade RN and Staff Pharmacist Charlie. REACTIONS (DESCRIPTION, TIME, INTERVENTION AND EFFECTIVENESS) none ASSESSMENT: Monica was awake, alert and tolerated treatment well. Port flushed with 20 cc's of NS and 500 units of heparin and de-accessed. PLAN: Return to clinic as schedule. documented in this encounter Plan of Treatment Upcoming Encounters Date Type Department Care Team (Late st Contact Info) Description 02/24/2024 9:00 AM EDT Office Visit Hematology/Oncology at [address] [phone] Shon Schneider MD [facility] [place] [address] Ciara Pitts APRN [address] [place] [address] [place] [address] 02/24/2024 9:30 AM EDT Infusion Hematology Oncology at [address] [phone] 03/02/2024 11:00 AM EDT Office Visit Hematology/Oncology at [address] [phone] Shon Schneider MD [facility] [place] [address] HEMATOLOGY AND ONCOLOGY [place], [place] [phone] 03/02/2024 12:30 PM EDT Infusion Hematology Oncology at [address] [phone] 03/09/2024 10:00 AM EDT Office Visit Hematology/Oncology at [address] [phone] Shon Schneider MD [facility] [place] [address] [address] HEMATOLOGY AND ONCOLOGY [place], [place] [id number] 03/09/2024 10:30 AM EDT Infusion Hematology Oncology at [address] [phone] documented as of this encounter Goals Goal Patient Goal Type Associated Problems Recent Progress Patient-Stated? Author DH Home Medication Compliance and Understanding Patient Facing Action Plan On track( 019 3:22 PM EST) Ivana Ashraf, [facility] Note: [...] MAR Action Action Date Dose Rate Site cyanocobalamin (Vitamin B-12) (1,000 mcg/mL) injection 1,000 mcg 1,000 mcg, Subcutaneous, ONCE, 1 dose, On Tue10/08/22 at 1300, Administer prior to PEMEtrexed. Recommended dose is 1,000 mcg every 9 weeks. Confirm last date of Vitamin B12 administration., Routine Given 10/08/2022 12:53 PM EDT 1,000 mcg Right Arm heparin (pf) (porcine) (100 units/mL) flush 5 mL syringe 500 Units 500 Units, Intravenous, ONCE PRN, Starting on Tue10/08/22 at 1243, Until Tue10/08/22 at 1552, Line Care, Refer to Intravenous (IV) Procedure: Accessing Implanted Vascular Access Devices (654) procedure and/or Intravenous (IV) Job Aid: Adult Flushing & Catheter Care (5220) job aid for additional information regarding guidelines and administration., Routine Given 10/08/2022 1:37 PM EDT 500 Units ondansetron (Zofran) tablet 8 mg 8 mg, Oral, ONCE, 1 dose, On Tue10/08/22 at 1300, Administer prior to chemotherapy, Routine Given 10/08/2022 12:53 PM EDT 8 mg PEMEtrexed disodium (Alimta) 600 mg in sodium chloride 0.9% 124 mL infusion 600 mg, Intravenous, ONCE, 1 dose, On Tue10/08/22 at 1400, Administer over 10 Minutes, Dose Ordered = 563 mg (250 mg/m2). Pharmacist rounded dose per procedure. Incompatable with calcium containing IV products New Bag 10/08/2022 1:20 PM EDT 600 mg 744 mL/hr sodium chloride 0.9 % (flush) (BD PosiFlush Normal Saline 0.9) flush 5-20 mL 5-20 mL, Intravenous, EVERY 1 MIN PRN, Starting on Tue10/08/22 at 1243, Until Tue10/08/22 at 1552, Line Care, Flush pertains to all indwelling lines. Flush per protocol found in the job aid using the link provided on this medication record. Refer to Intravenous (IV) Job Aid: Adult Flushing & Catheter Care (6519) job aid for additional information regarding guidelines and administration., Routine Given 10/08/2022 1:37 PM EDT 20 mLs documented in this encounter Care Teams Adhesive Bandage Machine Operator Relationship Specialty Start Date End Date Jerzy Vidal MD [address] [place] [address] [place] [address] PCP - [facility] Medicine 12/04/18 documented as of this encounter
--- OUTSIDE RECORDS SUMMARY | 2024-02-24 01:17 | XMS_ITS | Encounter Summary ---
Author Organization [facility] [place] [address] Care Team Providers Care Outside Parts Salesman Name Role Phone Jerzy Vidal MD Primary Care Provider [phone] Reason for Visit * Reason Comments Medication Refill Encounter Details Date Type Department Care Team (Late Contact Info) Description 05/30/2022 Refill Hematology/Oncology at [address] [phone] Shon Schneider MD [facility] [place] [address] Hypomagnesemia Social History Tobacco Use Types Packs/Day [...] 9:00 AM EDT Office Visit Hematology/Oncology at [address] [phone] Shon Schneider MD [facility] [place] [address] Ciara Pitts APRN [address] [place] [address] DR HEMATOLOGY AND ONCOLOGY [place], [place] [id number] 02/24/2024 9:30 AM EDT Infusion Hematology Oncology at [address] [phone] 03/02/2024 11:00 AM EDT Office Visit Hematology/Oncology at [address] [phone] Shon Schneider MD [facility] [place] [address] HEMATOLOGY AND ONCOLOGY [place], [place] [id number] 03/02/2024 12:30 PM EDT Infusion Hematology Oncology at [address] [phone] 03/09/2024 10:00 AM EDT Office Visit Hematology/Oncology at [address] [phone] Shon Schneider MD [facility] [place] [address] HEMATOLOGY AND ONCOLOGY [place], [place] [address] 03/09/2024 10:30 AM EDT Infusion Hematology Oncology at [address] [phone] documented as of this encounter Goals Goal [...] thymus documented in this encounter Care Teams Outside Parts Salesman Relationship Specialty Start Date End Date Jerzy Vidal MD [address] [place] [address] [place] [address] PCP - [facility] Medicine 12/04/18 documented as of this encounter
--- OUTSIDE RECORDS SUMMARY | 2024-02-24 01:17 | XMS_ITS | Encounter Summary ---
Author Organization Formerly [facility] Address [facility] [place] [address] Care Team Providers Care Customer Development Manager Name Role Phone Jerzy Vidal MD Primary Care Provider [phone] Encounter Details Date Type Department Care Team (Late st Contact Info) Description 08/20/2022 1:30 PM EST TH Visit (TeleHealth) Hematology/Oncology at [address] [phone] Shon Schneider MD [facility] [place] [address] Ciara Pitts, NET LEAD DEVELOPER [address] [place] [address] DR HEMATOLOGY AND ONCOLOGY [place], [place] [phone] Thymic carcinoma; Generalized edema; Generalized weakness Social History Tobacco Use Types Packs/Day Years Used Date Smoking Tobacco: Never Smokeless Tobacco: Never Sex and Gender Information Value Date Recorded Sex Assigned at Not on file Gender Identity Not on file Sexual Orientation Not on file documented as of this encounter Progress Notes * Ciara Pitts APRN - 08/20/2022 1:30 PM EST Subjective: Patient ID: Monica [...] pleural effusion with compression atelectasis. transferred to [facility] for further evaluation and workup and [...] B. 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 [facility] - CONSULT SLIDES FROM [facility]; [place], [place]: A. MEDIASTINUM, MASS, BIOPSY ([id number]; 03/22/2017): ? 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 ?Immunohistochemistry performed at the outside institution and reviewed at [facility] demonstrates the following staining profile in lesional cells: ? Positive - AE1/AE3, p40, PAX8, CD117, CD5(multifocal), CK7(scattered cells), synaptophysin, chromogranin ? Negative - CK20, TTF-1, GATA3, CD34 ? The immunohistochemical profile supports the above diagnosis. ? Ki67 (MIB-1) proliferation index performed at the referring institution and reviewed at [facility] is focally up to ~30%. NOTE: While diffuse synaptophysin and chromogranin expression is unusual for conventional thymic carcinoma, the overall histomorphology and immunophenotype is most in keeping with THYMIC SQUAMOUS CARCINOMA.?The extent of PAX8 and CD117 staining would be unusual for Nut carcinoma. B. MEDIASTINUM, ANTERIOR, 4.5 CM, ULTRASOUND GUIDED FINED NEEDLE ASPIRATION ([id number]; 03/22/17): The cytologic preparations were not reviewed [...] Second opinion with Dr. Roddy Vega in [place]. They reviewed the pathology and concurred they [...] therapy with pembrolizumab L. CT c/a/p 11/06/19 ([facility] second read) - IMPRESSION [...] history is summarized above. This is a telephone encounter at Monica's request due to extreme weakness. She was last treated about 4 weeks ago. Since then, she's been having nausea, weakness, and limited mobility related to her edema. Had a critical low hgb last week and received 3 units PRBCs in the ER at [facility]. Her energy is a bit better since the transfusions. No pain, bowels working well, eating well. Reports she's moving well around her house, but getting out of the house is the issue. She's able to take care of her personal needs. She has heard from home health and is in the process of setting up services with them, especially PT. Legs are still edematous, she describes them as feeling like fence posts. She has trouble bending her knees, especially when using stairs. Some weeping to the legs, but she thinks this is less and that the edema may beimproving. She remains on lasix. Son and daughter in law, and grandchildren live with her. 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 Fam Hx: No h/o cancer Review of Systems Constitutional: Positive for appetite change and fatigue. Negative for activity change, fever and unexpected weight change. HENT: Negative. Respiratory: Negative for cough. Cardiovascular: Positive for leg swelling. Negative for chest pain and palpitations. Gastrointestinal: Negative for abdominal distention, abdominal pain, blood in stool, constipation and vomiting. Genitourinary: Negative. Musculoskeletal: Negative. Skin: Negative for color change and rash. Neurological: Positive for weakness. Hematological: Negative. Does not bruise/bleed easily. Psychiatric/Behavioral: Negative. All other systems reviewed and are negative. Objective: Physical Exam Pulmonary: Effort: Pulmonary effort is normal. Neurological: General: No focal deficit present. Mental Status: She is alert. Psychiatric: Mood and Affect: Mood normal. Behavior: Behavior normal. Labs: (08/18/22) WBC/ANC 5.4/ unknown (differential not completed), H/H 9.2/30.5, plt 203,000, BUN 15, Creat 1.03, Albumin 2.7, mag 1.7, TSH 5.19, free T4 1.30, remainder of complete metabolic panel otherwise unremarkable. (07/14/22) WBC/ANC 5.02/3400, Hgb/Hct 8.0/25.3, plt 232,000, Na 135, BUN 11, Creat 1.02, Mg 1.6, Albumin 2.6, ALT 13, TSH 1.67, Free T4 [...] 1.41 05/26/22 2.595 1.52 06/16/22 3.813 1.26 08/18/22 5.199 1.30 EPO (2.6-18.5) 11/05/21 121 08/21/21 52.3 06/19/21 [...] Dr. Schneider spoke with Dr. Vega at [facility]. There were no clinical trials [...] Dr. Schneider spoke with Dr. Beckman from [facility]. His suggestion was to try gemcitabine plus capecitabine. Dr. Schneider also spoke with Dr. Shon Ramon at [facility]. He agreed that [...] in 2017 was WNL. For further evaluation, an EPO [...] received C1 of pemetrexed on 06/23/22. Overall, sh tolerated it well. She did, however, have some grade 2-3 anemia prior to C2 so wereduced her pemetrexed to 75%. Three weeks later, her hgb was critically low and she was sent to the ER where she received 3 unitspacked red blood cells. She remains weak with limited mobility. She would like to take a small break to work on PT so that she can safely get out of the house. We will have her return in 2-3 weeks, with labs prior. If she is agreeable to continue therapy at that point, we will reduce the pemetrexed to 60% and monitor her counts more frequently. She may require transfusion support mid-cycle. She is in agreement with the plan. documented in this encounter Plan of Treatment Upcoming Encounters Date Type Department Care Team (Late st Contact Info) Description 02/24/2024 9:00 AM EDT Office Visit Hematology/Oncology at [address] [phone] Shon Schneider MD [facility] [place] [address] Ciara Pitts APRN [address] [place] [address] [place] [address] 02/24/2024 9:30 AM EDT Infusion Hematology Oncology at [address] [phone] 03/02/2024 11:00 AM EDT Office Visit Hematology/Oncology at [address] [phone] Shon Schneider MD [facility] [place] [address] HEMATOLOGY AND ONCOLOGY [place], [place] [id number] 03/02/2024 12:30 PM EDT Infusion Hematology Oncology at [address] [phone] 03/09/2024 10:00 AM EDT Office Visit Hematology/Oncology at [address] [phone] Shon Schneider MD [facility] [place] [address] [address] HEMATOLOGY AND ONCOLOGY [place], [place] [id number] 03/09/2024 10:30 AM EDT Infusion Hematology Oncology at [address] [phone] documented as of this encounter Goals Goal [...] thymus documented in this encounter Care Teams Customer Development Manager Relationship Specialty Start Date End Date Jerzy Vidal MD [address] [place] [address] [place] [address] PCP - [facility] Medicine 12/04/18 documented as of this encounter
--- OUTSIDE RECORDS SUMMARY | 2024-02-24 01:17 | XMS_ITS | Encounter Summary ---
Author Organization [facility] Address [facility] [place] [address] Care Team Providers Care Small Battery Plate Assembler Name Role Phone Jerzy Vidal MD Primary Care Provider [phone] Encounter Details Date Type Department Care Team (Latest Contact Info) Description 11/02/2022 Travel Social History Tobacco Use Types Packs/Day [...] AM EDT Office Visit Hematology/Oncology at [address] [phone] Shon Schneider MD [facility] [place] [place] [address] Ciara Pitts APRN [address] [place] [address] DR HEMATOLOGY AND ONCOLOGY [place], [place] [phone] 02/24/2024 9:30 AM EDT Infusion Hematology Oncology at [address] [phone] 03/02/2024 11:00 AM EDT Office Visit Hematology/Oncology at [address] [phone] Shon Schneider MD [facility] [place] [place] [address] HEMATOLOGY AND ONCOLOGY [place], [place] [id number] 03/02/2024 12:30 PM EDT Infusion Hematology Oncology at [address] [phone] 03/09/2024 10:00 AM EDT Office Visit Hematology/Oncology at [address] [place] [phone] Shon Schneider MD [facility] [place] [address] HEMATOLOGY AND ONCOLOGY [place], [place] [address] 03/09/2024 10:30 AM EDT Infusion Hematology Oncology at [address] [phone] documented as of this encounter Goals Goal Patient Goal Type Associated Problems Recent Progress Patient-Stated? Author DH Home Medication Compliance and Understanding Patient Facing Action Plan On track( 019 3:22 PM EST) Ivana Ashraf, [facility] Note: Remain 95% or better adherent to chemotherapy without severe side effects as assessed by days supply and patient reported adverse events at each refill documented as of this encounter Visit Diagnoses Not on filedocumented in this encounter Care Teams Small Battery Plate Assembler Relationship Specialty Start Date End Date Jerzy Vidal MD [address] [place] [address] [place] [address] PCP - [facility] Medicine 12/04/18 documented as of this encounter
--- OUTSIDE RECORDS SUMMARY | 2024-02-24 01:17 | XMS_ITS | Encounter Summary ---
Author Organization [facility] [place] [address] Care Team Providers Care Business Objects Architect Name Role Phone Jerzy Vidal MD Primary Care Provider [phone] Reason for Visit * Reason Comments Chemotherapy Cycle 1, Day 1 - Pem etrexed Injections B12 injections * Treatment/Therapy Plan Authorization (Routine) - Closed Specialty Diagnoses / Procedures Referred By Contac t Referred To Contact Hematology and Oncology Diagnoses Thymic carcinoma Procedures TC PEMETREXED, 10MG, INJECTION (ALIMTA) [id number] ALIMTA Shon Schneider MD [address] [place] [address] [place] [address] Shon Schneider MD [address] [place] [address] [place] [address] Referral ID Status Reason Start Date Expiration Date Visits Re quested Visits Authorized [id number] Closed 10/19/2022 10/30/2022 8 8 Encounter Details Date Type Department Care Team (Late st Contact Info) Description 06/23/2022 12:30 PM EST Infusion Hematology Oncology at [address] [phone] Thymic carcinoma Social History Tobacco Use Types Packs/Day Years Used Date Smoking Tobacco: Never Smokeless Tobacco: Never Sex and Gender Information Value Date Recorded Sex Assigned at Not on file Gender Identity Not on file Sexual Orientation Not on file documented as of this encounter Last Filed Vital Signs Vital Sign Reading Time Taken Comments Blood Pressure 123/77 06/23/2022 12:51 PM EST Pulse 80 06/23/2022 12:51 PM EST Temperature 36.7 ??C (98.1 ??F) 06/23/2022 12:[address] Respiratory Rate 22 06/23/2022 12:51 PM EST Oxygen Saturation 93% 06/23/2022 12:51 PM EST Inhaled Oxygen Concentration - - Weight 113.2 kg (249 lb 8 oz) 06/23/2022 12:51 P M EST Height 175.3 cm (5' 9.02) 06/23/2022 12:[address] Body Mass Index 36.83 06/23/2022 12:51 PM EST documented in this encounter Progress Notes * Ute Chacon RN - 06/23/2022 12:30 PM EST INFUSION THERAPY ADMINISTRATION NOTES DIAGNOSIS: Thymic cancer CYCLE #: Cycle 1, Day 1 - Pemetrexed, B12 injection REASON FOR VISIT: To begin new regimen. SUBJECTIVE: Monica is still reporting interstitial edema in lower abd. And legs. It is slowly improving. OBJECTIVE: VSS. Weight is stable from last visit. LAB DATA: WBC - 4.2, H/H - 11.4/36.9, Plt Ct - 194, ANC - 3.1, Lytes wnl, BUN/Cr - 28/1.17, MG - 1.6 IV ACCESS: Port accessed without difficulty. Flushes readily with brisk blood return. Pre administration: Chemotherapy orders independently verified for drug name, route, and dosage per patient's height, weight and BSA by Ute Chacon RN and Staff Pharmacist(s). REACTIONS (DESCRIPTION, TIME, INTERVENTION AND EFFECTIVENESS) none ASSESSMENT: Monica was awake, alert and tolerated treatment well. She received B12 today. Port flushed with 20 cc's of NS and 500 units of heparin and de-accessed. PLAN: Return to clinic in three weeks. documented in this encounter Plan of Treatment Upcoming Encounters Date Type Department Care Team (Late st Contact Info) Description 02/24/2024 9:00 AM EDT Office Visit Hematology/Oncology at [address] [phone] Shon Schneider MD [facility] [place] [address] HEMATOLOGY AND ONCOLOGY [place], [place] [address] [phone] 02/24/2024 9:30 AM EDT Infusion Hematology Oncology at [address] [phone] 03/02/2024 11:00 AM EDT Office Visit Hematology/Oncology at [address] [phone] Shon Schneider MD [facility] [place] [place] [address] Ciara Pitts [address] HEMATOLOGY AND ONCOLOGY [place], [place] [address] 03/02/2024 12:30 PM EDT Infusion Hematology Oncology at [address] [phone] 03/09/2024 10:00 AM EDT Office Visit Hematology/Oncology at [address] [phone] Shon Schneider MD [facility] [place] [address] Ciara Pitts [address] HEMATOLOGY AND ONCOLOGY [place], [place] [phone] 03/09/2024 10:30 AM EDT Infusion Hematology Oncology at [address] [phone] documented as of this encounter Goals Goal [...] 1,000 mcg, Subcutaneous, ONCE, 1 dose, On Tue06/23/22 at 1330, Administer prior to PEMEtrexed. Recommended dose is 1,000 mcg every 9 weeks. Confirm last date of Vitamin B12 administration., Routine Given 06/23/2022 1:52 PM EST 1,000 mcg Right Arm heparin (pf) (porcine) (100 units/mL) flush 5 mL syringe 500 Units 500 Units, Intravenous, ONCE PRN, Starting on Tue06/23/22 at 1305, Until Tue06/23/22 at 1803, Line Care, Refer to Intravenous (IV) Procedure: Accessing Implanted Vascular Access Devices (684) procedure and/or Intravenous (IV) Job Aid: Adult Flushing & Catheter Care (8299) job aid for additional information regarding guidelines and administration., Routine Given 06/23/2022 2:15 PM EST 500 Units ondansetron (Zofran) tablet 8 mg 8 mg, Oral, ONCE, 1 dose, On Tue06/23/22 at 1330, Administer prior to chemotherapy, Routine Given 06/23/2022 1:52 PM EST 8 mg PEMEtrexed disodium (Alimta) 1,200 mg in sodium chloride 0.9% 148 mL infusion 1,200 mg, Intravenous, ONCE, 1 dose, On Tue06/23/22 at 1430, Administer over 10 Minutes, Dose Ordered = 1125 mg (500 mg/m2). Pharmacist rounded dose per procedure. Incompatable with calcium containing IV products New Bag 06/23/2022 2:00 PM EST 1,200 mg 888 mL/hr sodium chloride 0.9 % (flush) (BD PosiFlush Normal Saline 0.9) flush 5-20 mL 5-20 mL, Intravenous, EVERY 1 MIN PRN, Starting on Tue06/23/22 at 1305, Until Tue06/23/22 at 1803, Line Care, Flush pertains to all indwelling lines. Flush per protocol found in the job aid using the link provided on this medication record. Refer to Intravenous (IV) Job Aid: Adult Flushing & Catheter Care (1531) job aid for additional information regarding guidelines and administration., Routine Given 06/23/2022 2:15 PM EST 20 mLs documented in this encounter Care Teams Business Objects Architect Relationship Specialty Start Date End Date Jerzy Vidal MD [address] [place] [address] [place] [address] PCP - [facility] Medicine 12/04/18 documented as of this encounter
--- OUTSIDE RECORDS SUMMARY | 2024-02-24 01:17 | XMS_ITS | Encounter Summary ---
Author Organization Formerly [facility] Address [facility] [place] [address] Care Team Providers Care Director Insurance Name Role Phone Jerzy Vidal MD Primary Care Provider [phone] Encounter Details Date Type Department Care Team (Latest Contact Info) Description 04/29/2022 Travel Social History Tobacco Use Types Packs/Day [...] 9:00 AM EDT Office Visit Hematology/Oncology at [address] [phone] Shon Schneider MD [facility] [place] [address] Ciara Pitts APRN [address] [place] [address] DR HEMATOLOGY AND ONCOLOGY [place], [place] [phone] 02/24/2024 9:30 AM EDT Infusion Hematology Oncology at [address] [phone] 03/02/2024 11:00 AM EDT Office Visit Hematology/Oncology at [address] [phone] Shon Schneider MD [facility] [place] [place] [address] Ciara Pitts, [address] HEMATOLOGY AND ONCOLOGY [place], [place] [address] 03/02/2024 12:30 PM EDT Infusion Hematology Oncology at [address] [phone] 03/09/2024 10:00 AM EDT Office Visit Hematology/Oncology at [address] [phone] Shon Schneider MD [facility] [place] [address] [address] HEMATOLOGY AND ONCOLOGY [place], [place] [address] 03/09/2024 10:30 AM EDT Infusion Hematology Oncology at [address] [phone] documented as of this encounter Goals Goal Patient Goal Type Associated Problems Recent Progress Patient-Stated? Author DH Home Medication Compliance and Understanding Patient Facing Action Plan On track( 019 3:22 PM EST) Ivana Ashraf, [facility] ED Note: Remain 95% or better adherent to chemotherapy without severe side effects as assessed by days supply and patient reported adverse events at each refill documented as of this encounter Visit Diagnoses Not on filedocumented in this encounter Care Teams Director Insurance Relationship Specialty Start Date End Date Jerzy Vidal MD [address] [place] [address] [place] [address] PCP - [facility] Medicine 12/04/18 documented as of this encounter
--- OUTSIDE RECORDS SUMMARY | 2024-02-24 01:17 | XMS_ITS | Encounter Summary ---
Author Organization [facility] [place] [address] Care Team Providers Care Keyboarding Clerk Name Role Phone Jerzy Vidal MD Primary Care Provider [phone] Reason for Visit * Reason Onset Date Comments Follow-up 08/16/2022 Encounter Details Date Type Department Care Team (Late st Contact Info) Description 08/16/2022 Telephone Hematology/Oncology at [address] [phone] Tatiana Jenkins, RN Follow-up Social History Tobacco Use Types Packs/Day Years Used Date Smoking Tobacco: Never Smokeless Tobacco: Never Sex and Gender Information Value Date Recorded Sex Assigned at Not on file Gender Identity Not on file Sexual Orientation Not on file documented as of this encounter Miscellaneous Notes * Telephone Encounter - Tatiana Jenkins, RN - 08/16/2022 1:05 PM EST Call to Monica to check in. She got the messages from the [facility] and is planning on calling them back to set up home health and PT. She states her mobility is terrible, legs feel very heavy, when she went for her transfusion on 08/11 she had to be transported via ambulance. She states the edema was getting better-but worse now since her last infusion on 07/21. She is able to walk around her house but very tired after performing ADLs- reports SOB after and abdomen feels full, gets better after resting. She denies pain, she is eating well. Her daughter is going to draw her labs on Tuesday. ----- Message from Princess Barros sent at 08/16/2022 10:55 AM EST ----- Regarding: [facility] Unable to Contact Pt Heidi from [facility] called to let us know they have been attempting to contact Monica since we placed a referral for her on Tuesday. She said they've attempted multiple times to reach her, including this morning. I verified the number they had on file was correct. I attempted to contact Monica and her daughter Cass. I was unable to leave a message on Cass'sphone because the mailbox was full. Can you please keep an eye on this? Wondering if she needs a wellness check, very unlike Monica. [facility] callback [phone] documented in this encounter Plan of Treatment Upcoming Encounters Date Type Department Care Team (Late st Contact Info) Description 02/24/2024 9:00 AM EDT Office Visit Hematology/Oncology at [address] [phone] Shon Schneider MD [facility] [place] [address] [address] [place] [address] 02/24/2024 9:30 AM EDT Infusion Hematology Oncology at [address] [phone] 03/02/2024 11:00 AM EDT Office Visit Hematology/Oncology at [address] [phone] Shon Schneider MD [facility] [address] [address] HEMATOLOGY AND ONCOLOGY [place], [place] [id number] 03/02/2024 12:30 PM EDT Infusion Hematology Oncology at [address] [phone] 03/09/2024 10:00 AM EDT Office Visit Hematology/Oncology at [address] [phone] Shon Schneider MD [facility] [place] [address] Ciara Pitts APRN [address] [place] [address] DR HEMATOLOGY AND ONCOLOGY [place], [place] [id number] 03/09/2024 10:30 AM EDT Infusion Hematology Oncology at [address] [phone] documented as of this encounter Goals Goal Patient Goal Type Associated Problems Recent Progress Patient-Stated? Author DH Home Medication Compliance and Understanding Patient Facing Action Plan On track( 019 3:22 PM EST) No Ivana Vanegas, [facility] Note: Remain 95% or better adherent to chemotherapy without severe side effects as assessed by days supply and patient reported adverse events at each refill documented as of this encounter Visit Diagnoses Not on filedocumented in this encounter Care Teams Keyboarding Clerk Relationship Specialty Start Date End Date Jerzy Vidal MD [address] [place] [address] [place] [address] PCP - General [facility] Medicine 12/04/18 documented as of this encounter
--- OUTSIDE RECORDS SUMMARY | 2024-02-24 01:17 | XMS_ITS | Encounter Summary ---
Author Organization [facility] [place] [address] Care Team Providers Care Commercial Production Editor Name Role Phone Jerzy Vidal MD Primary Care Provider [phone] Encounter Details Date Type Department Care Team (Late st Contact Info) Description 10/15/2022 Telephone Hematology/Oncology at [address] [phone] Shon Schneider MD [facility] [place] [address] Social History Tobacco Use Types Packs/Day Years Used Date Smoking Tobacco: Never Smokeless Tobacco: Never Sex and Gender Information Value Date Recorded Sex Assigned at Not on file Gender Identity Not on file Sexual Orientation Not on file documented as of this encounter Miscellaneous Notes * Telephone Encounter - Lashawn Skelton RN - 10/15/2022 2:16 PM EDT Called Monica to let her know I reviewed her labs with Dr. Schneider. Hg 8.6. Bili higher. We added on a direct bili. We will check CBC and CMP 10/21 and will also check a haptoglobin and retic count. Called [facility] to let them know of the additional labs and Faxed orders to them, fax confirmed documented in this encounter Plan of Treatment Upcoming Encounters Date Type Department Care Team (Late st Contact Info) Description 02/24/2024 9:00 AM EDT Office Visit Hematology/Oncology at [address] [phone] Shon Schneider MD [facility] [place] [address] [address] HEMATOLOGY AND ONCOLOGY [place], [place] [address] 02/24/2024 9:30 AM EDT Infusion Hematology Oncology at [address] [phone] 03/02/2024 11:00 AM EDT Office Visit Hematology/Oncology at [address] [phone] Shon Schneider MD [facility] [place] [address] [address] HEMATOLOGY AND ONCOLOGY [place], [place] [address] 03/02/2024 12:30 PM EDT Infusion Hematology Oncology at [address] [phone] 03/09/2024 10:00 AM EDT Office Visit Hematology/Oncology at [address] [phone] Shon Schneider MD [facility] [place] [address] Ci[address] HEMATOLOGY AND ONCOLOGY [place], [place] [address] 03/09/2024 10:30 AM EDT Infusion Hematology Oncology at [address] [phone] documented as of this encounter Goals Goal Patient Goal Type Associated Problems Recent Progress Patient-Stated? Author DH Home Medication Compliance and Understanding Patient Facing Action Plan On track( 019 3:22 PM EST) Ivana Ashraf, [facility] Note: Remain 95% or better adherent to chemotherapy without severe side effects as assessed by days supply and patient reported adverse events at each refill documented as of this encounter Visit Diagnoses Diagnosis Normocytic anemia Anemia, unspecified Thymic carcinoma Malignant neoplasm of thymus documented in this encounter Care Teams Commercial Production Editor Relationship Specialty Start Date End Date Jerzy Vidal MD [address] [place] [address] [place] [address] PCP - [facility] Medicine 12/04/18 documented as of this encounter
--- OUTSIDE RECORDS SUMMARY | 2024-02-24 01:17 | XMS_ITS | Encounter Summary ---
Author Organization [facility] Address [facility] [place] [address] Care Team Providers Care Charge Out Clerk Name Role Phone eJrzy Vidal MD Primary Care Provider [phone] Encounter Details Date Type Department Care Team (Late st Contact Info) Description 10/08/2022 11:30 AM EDT Office Visit Hematology/Oncology at [address] [phone] Shon Schneider MD [facility] [place] [address] Thymic carcinoma; Cmplx tear of lat mensc, current injury, unsp knee, sequela; Macrocytic anemia Social History Tobacco Use Types Packs/Day Years Used Date Smoking Tobacco: Never Smokeless Tobacco: Never Sex and Gender Information Value Date Recorded Sex Assigned at Not on file Gender Identity Not on file Sexual Orientation Not on file documented as of this encounter Last Filed Vital Signs Vital Sign Reading Time Taken Comments Blood Pressure 123/69 10/08/2022 11:29 AM EDT Pulse 79 10/08/2022 11:29 AM EDT Temperature 36.5 ??C (97.7 ??F) 10/08/2022 1 1:29 AM EDT Respiratory Rate 20 10/08/2022 11:2 9 AM EDT Oxygen Saturation 91% 10/08/2022 11: 29 AM EDT Inhaled Oxygen Concentration - - Weight 107.5 kg (237 lb) 10/08/2022 11: 29 AM EDT wheelchair scale Height 175.3 cm (5' 9.02) 10/08/2022 1 1:29 AM EDT Body Mass Index 34.98 10/08/2022 11:29 AM EDT documented in this encounter Progress Notes * Shon Schneider MD - 10/08/2022 11:30 AM EDT Subjective: Patient ID: Monica [...] pleural effusion with compression atelectasis. transferred to [facility] for further evaluation and workup and [...] B. Biopsy of mediastinal mass 03/29 Path ([facility] review) - Mediastinum, mass, biopsy: 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 [facility] - CONSULT SLIDES FROM [facility]; [place], [place]: A. MEDIASTINUM, MASS, BIOPSY ([id number]; 03/22/2017): ? 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 ?Immunohistochemistry performed at the outside institution and reviewed at [facility] demonstrates the following staining profile in lesional cells: ? Positive - AE1/AE3, p40, PAX8, CD117, CD5(multifocal), CK7(scattered cells), synaptophysin, chromogranin ? Negative - CK20, TTF-1, GATA3, CD34 ? The immunohistochemical profile supports the above diagnosis. ? Ki67 (MIB-1) proliferation index performed at the referring institution and reviewed at [facility] is focally up to ~30%. NOTE: While diffuse synaptophysin and chromogranin expression is unusual for conventional thymic carcinoma, the overall histomorphology and immunophenotype is most in keeping with THYMIC SQUAMOUS CARCINOMA.?The extent of PAX8 and CD117 staining would be unusual for Nut carcinoma. B. MEDIASTINUM, ANTERIOR, 4.5 CM, ULTRASOUND GUIDED FINED NEEDLE ASPIRATION ([id number]; 03/22/17): The cytologic preparations were not reviewed [...] Second opinion with Dr. Roddy Vega in [place]. They reviewed the pathology and concurred they [...] therapy with pembrolizumab L. CT c/a/p 11/06/19 ([facility] second read) - IMPRESSION 1. Worsening left-sided [...] left. 2. H/o atrial fibrillation 3. HTN 4. Echocardiogram 06/20/18 ([facility]) - Summary: 1. Preserved LV function [...] pain or SOB. Her weight is down 6#. She has been taking lasix for the LE edema which has improved, although is not gone. Her leg strength is better, back to her baseline. She is ambulatory at home with walker, largely because the left knee gie out at times. PT came to her home last week. They reviewed exercises which she is doing daily. Soc Hx: , lives in [place], [place] Tob - Never Etoh - rare [...] alert. Psychiatric: Mood and Affect: Mood normal. Labs:(10/06/22) WBC/ANC - 4.10/3299, Hgb/Hct - 9.8/33/3, Plts [...] pembrolizumab. I spoke with Dr. Vega at [facility]. There were no clinical trials available there. [...] Ramon at [facility]. He agreed that gemcitabine plus capecitabine is [...] reticulocyte count were done on 09/17/22. There is no indication of hemolysis although her Hgb was better by that time. A restaging CT scan was done on 10/06/22 - stable (report above) We talked today about options. She are going to try to go ahead with therapy at further reduced dose (50% of full dose). We will check weekly cbc and see her in three weeks. documented in this encounter Plan of Treatment Upcoming Encounters Date Type Department Care Team (Late st Contact Info) Description 02/24/2024 9:00 AM EDT Office Visit Hematology/Oncology at [address] [phone] Shon Schneider MD [facility] [place] [address] [address] HEMATOLOGY AND ONCOLOGY [place], [place] [address] [phone] 02/24/2024 9:30 AM EDT Infusion Hematology Oncology at [address] [phone] 03/02/2024 11:00 AM EDT Office Visit Hematology/Oncology at [address] [phone] Shon Schneider MD [facility] [place] [address] [address] HEMATOLOGY AND ONCOLOGY [place], [place] [id number] 03/02/2024 12:30 PM EDT Infusion Hematology Oncology at [address] [phone] 03/09/2024 10:00 AM EDT Office Visit Hematology/Oncology at [address] [phone] Shon Schneider MD [facility] [place] [address] [address] HEMATOLOGY AND ONCOLOGY [place], [place] [address] 03/09/2024 10:30 AM EDT Infusion Hematology Oncology at [address] [phone] documented as of this encounter Goals Goal [...] Diagnosis Thymic carcinoma Malignant neoplasm of thymus Cmplx tear of lat mensc, current injury, unsp knee, sequela Macrocytic anemia Unspecified deficiency anemia Thymic carcinoma Malignant neoplasm of thymus documented in this encounter Care Teams Charge Out Clerk Relationship Specialty Start Date End Date Jerzy Vidal MD [address] [place] [address] [place] [address] PCP - [facility] Medicine 12/04/18 documented as of this encounter
--- OUTSIDE RECORDS SUMMARY | 2024-02-24 01:17 | XMS_ITS | Encounter Summary ---
Author Organization [facility] Address [facility] [place] [address] Care Team Providers Care Collar Pointer Name Role Phone Jerzy Vidal MD Primary Care Provider [phone] Encounter Details Date Type Department Care Team (Latest Contact Info) Description 07/21/2022 Travel Social History Tobacco Use Types Packs/Day [...] AM EDT Office Visit Hematology/Oncology at [address] [phone] Shon Schneider MD [facility] [place] [address] Ciara Pitts APRN [address] [place] [address] DR HEMATOLOGY AND ONCOLOGY [place], [place] [phone] 02/24/2024 9:30 AM EDT Infusion Hematology Oncology at [address] [phone] 03/02/2024 11:00 AM EDT Office Visit Hematology/Oncology at [address] [phone] Shon Schneider MD [facility] [place] [address] Ciara Pitts, [address] HEMATOLOGY AND ONCOLOGY [place], [place] [address] 03/02/2024 12:30 PM EDT Infusion Hematology Oncology at [address] [phone] 03/09/2024 10:00 AM EDT Office Visit Hematology/Oncology at [address] [phone] Shon Schneider MD [facility] [place] [address] HEMATOLOGY AND ONCOLOGY [place], [place] [address] 03/09/2024 10:30 AM EDT Infusion Hematology Oncology at [address] [phone] documented as of this encounter Goals Goal [...] on filedocumented in this encounter Care Teams Collar Pointer Relationship Specialty Start Date End Date Jerzy Vidal MD [address] [place] [address] [place] [address] PCP - [facility] Medicine 12/04/18 documented as of this encounter
--- OUTSIDE RECORDS SUMMARY | 2024-02-24 01:18 | XMS_ITS | Encounter Summary ---
Author Organization [facility] Address [facility] [place] [address] Care Team Providers Care Pivot End Polisher Name Role Phone Jerzy Vidal MD Primary Care Provider [phone] Reason for Visit * Reason Onset Date Comments Medication Refill 01/22/2022 Encounter Details Date Type Department Care Team (Late st Contact Info) Description 01/22/2022 Refill Hematology/Oncology at [address] [phone] Shon Schneider MD [facility] [place] [address] Edema of lower extremity Social History Tobacco Use Types Packs/Day Years Used Date Smoking Tobacco: Never Smokeless Tobacco: Never Sex and Gender Information Value Date Recorded Sex Assigned at Not on file Gender Identity Not on file Sexual Orientation Not on file documented as of this encounter Miscellaneous Notes * Telephone Encounter - Roxana Machuca RN - 01/22/2022 2:15 PM EDT Images from the original note were not included. Princess Barros [facility] Hem Onc Nurse Monica is looking to see if she can have a refill on furosemide (Lasix) 20 mg Tablet [[id number]]. She was recently at [facility] ED and they advised she increase taking the medication to two times a day. Shesaid she discussed with Dr. Schneider and the plan would be to keep her on this regime for the interim. She says she has enough to get her through only three more days if she continues to take it twice aday. Can you please send out a new order to [facility]? If you have any questions for her, she called on [phone] RN Follow-Up Note Phone call to patient to clarify what she is taking for Furosemide dose. Reports that she is [id number] once daily, increased from 20mg once daily. Discussed with Dr. Schneider who is agreeable to refill prescription. Rx pended to Dr. Schneider for review and e-sign. documented in this encounter Plan of Treatment Upcoming Encounters Date Type Department Care Team (Late st Contact Info) Description 02/24/2024 9:00 AM EDT Office Visit Hematology/Oncology at [address] [phone] Shon Schneider MD [facility] [place] [address] [address] HEMATOLOGY AND ONCOLOGY [place], [place] [address] 02/24/2024 9:30 AM EDT Infusion Hematology Oncology at [address] [phone] 03/02/2024 11:00 AM EDT Office Visit Hematology/Oncology at [address] [phone] Shon Schneider MD [facility] [place] [address] [address] [place] [address] 03/02/2024 12:30 PM EDT Infusion Hematology Oncology at [address] [phone] 03/09/2024 10:00 AM EDT Office Visit Hematology/Oncology at [address] [phone] Shon Schneider MD [facility] DR [place] [address] Ciara Pitts APRN [address] [place] [address] DR HEMATOLOGY AND ONCOLOGY [place], [place] [address] 03/09/2024 10:30 AM EDT Infusion Hematology Oncology at [address] [phone] documented as of this encounter Goals Goal Patient Goal Type Associated Problems Recent Progress Patient-Stated? Author DH Home Medication Compliance and Understanding Patient Facing Action Plan On track( 019 3:22 PM EST) Ivana Ashraf, [facility] Note: Remain 95% or better adherent to chemotherapy without severe side effects as assessed by days supply and patient reported adverse events at each refill documented as of this encounter Visit Diagnoses Diagnosis Edema of lower extremity Edema Thymic carcinoma Malignant neoplasm of thymus documented in this encounter Care Teams Pivot End Polisher Relationship Specialty Start Date End Date Jerzy Vidal MD [address] [place] [address] [place] [address] PCP - [facility] Medicine 12/04/18 documented as of this encounter
--- OUTSIDE RECORDS SUMMARY | 2024-02-24 01:18 | XMS_ITS | Encounter Summary ---
[place] [address] Care Team Providers Care Electronic Technologist Name Role Phone Jerzy Vidal MD Primary Care Provider [phone] Reason for Visit * Reason Onset Date Comments Prior Authorization 02/04/2022 Encounter Details Date Type Department Care Team (Late st Contact Info) Description 02/04/2022 Telephone Hematology [place] [phone] Michelle Kong Prior Authorization (/) Social History Tobacco Use Types Packs/Day Years Used Date Smoking Tobacco: Never Smokeless Tobacco: Never Sex and Gender Information Value Date Recorded Sex Assigned at Not on file Gender Identity Not on file Sexual Orientation Not on file documented as of this encounter Miscellaneous Notes * Telephone Encounter - Michelle Rivero - 02/04/2022 9:10 AM EDT Procedure Prior Authorization Procedure/Cpt: 43272 Rationale for request: C37, R60.0, R79.89 Health plan: [facility] Medicare Authorizing associate financial representative name: [employer] Medicare Call to health plan on: 02/03/22 x2: Automated system advised large call volume and they are unable to take our call. Call disconnected by automated system. 02/04/22: spoke to Roxie Mcelroy @ 9:00am Health plan decision: No PA required 02/04/22: Request received to check code [id number]. 02/09/22: Spoke to [place] @ 2:00pm: No PA required. documented in this encounter Plan of Treatment Upcoming Encounters Date Type Department Care Team (Late st Contact Info) Description 02/24/2024 9:00 AM EDT Office Visit Hematology/Oncology at [address] [phone] Shon Schneider MD [facility] [place] [address] HEMATOLOGY AND ONCOLOGY [place], [place] [address] 02/24/2024 9:30 AM EDT Infusion Hematology Oncology at [address] [phone] 03/02/2024 11:00 AM EDT Office Visit Hematology/Oncology at [address] [phone] Shon Schneider MD [facility] [place] [address] HEMATOLOGY AND ONCOLOGY [place], [place] [address] 03/02/2024 12:30 PM EDT Infusion Hematology Oncology at [address] [phone] 03/09/2024 10:00 AM EDT Office Visit Hematology/Oncology at [address] [phone] Shon Schneider MD [facility] [place] [address] Ciara Pitts [address] HEMATOLOGY AND ONCOLOGY [place], [place] [address] 03/09/2024 10:30 AM EDT Infusion Hematology Oncology at [address] [phone] documented as of this encounter Goals Goal [...] filedocumented in this encounter Care Teams Electronic Technologist Relationship Specialty Start Date End Date Jerzy Vidal MD [address] [place] [address] [place] [address] PCP - General [facility] Medicine 12/04/18 documented as of this encounter
--- OUTSIDE RECORDS SUMMARY | 2024-02-24 01:18 | XMS_ITS | Encounter Summary ---
Author Organization Formerly [facility] [place] [address] Care Team Providers Care Crown Attacher Name Role Phone Jerzy Vidal MD Primary Care Provider [phone] Encounter Details Date Type Department Care Team (Late Contact Info) Description 01/01/2022 Orders Only [place] [address] [facility] [address] Thymic carcinoma Social History Tobacco Use Types [...] AM EDT Office Visit Hematology/Oncology at [address] [phone] [address] [facility] [place] [address] Ciara Pitts APRN [address] [place] [address] [place] [address] 02/24/2024 9:30 AM EDT Infusion Hematology Oncology at [address] [phone] 03/02/2024 11:00 AM EDT Office Visit Hematology/Oncology at [address] [phone] [facility] [place] [address] HEMATOLOGY AND ONCOLOGY [place], [place] [address] 03/02/2024 12:30 PM EDT Infusion Hematology Oncology at [address] [phone] 03/09/2024 10:00 AM EDT Office Visit Hematology/Oncology at [address] [phone] [facility] [place] [address] HEMATOLOGY AND ONCOLOGY [place], [place] [address] 03/09/2024 10:30 AM EDT Infusion Hematology Oncology at [address] [phone] documented as of this encounter Goals Goal [...] thymus documented in this encounter Care Teams Crown Attacher Relationship Specialty Start Date End Date Jerzy Vidal MD [address] [place] [address] [place] [address] PCP - [facility] Medicine 12/04/18 documented as of this encounter
--- OUTSIDE RECORDS SUMMARY | 2024-02-24 01:18 | XMS_ITS | Encounter Summary ---
Author Organization Formerly [facility] [place] [address] Care Team Providers Care Superintendent Local Name Role Phone Jerzy Vidal MD Primary Care Provider [phone] Reason for Visit * Reason Onset Date Comments New Medication Request 12/29/2021 New oral chemo- Everolimus Encounter Details Date Type Department Care Team (Late st Contact Info) Description 12/29/2021 Telephone Hematology/Oncology at [address] [phone] Lashawn Skelton, RN New Medication Request (New oral chemo- Everolimus) Social History Tobacco Use Types Packs/Day Years Used Date Smoking Tobacco: Never Smokeless Tobacco: Never Sex and Gender Information Value Date Recorded Sex Assigned at Not on file Gender Identity Not on file Sexual Orientation Not on file documented as of this encounter Miscellaneous Notes * Telephone Encounter - Lashawn Skelton RN - 12/29/2021 2:12 PM EDT Oral Chemotherapy Check Note 12/29/2021 Monica Jaramillo, 1955 Prescriptions for oral chemotherapy were reviewed as follows: Oral Chemotherapy Order Everolimus (Afinitor) 10 mg tablet: Order details: ?? Dose: 10mg ?? Route: oral ?? Quantity to be dispensed #: 30 tablets ?? Number of refills: 5 ?? Instructions: Take 1 tablet (10 mg) by mouth daily. Take without regard to food. ??Call clinic before/prior to starting medication/script. ??Indications: thymic carcinoma ?? Cycle number and length: ongoing ?? Start date: tentatively 01/08 Plan of care compared to information in the medical record, including note from provider on 12/29/21. The prescription was found To be complete and accurate. It was e[facility]prescribed to [facility]. Oral Chemotherapy Assessment Note 12/29/2021 Monica Jaramillo, 1955 Assessment of Monica Jaramillo???s living situation reveals that she lives with family The patient will be responsible for her medication administration. Medications reviewed, including prescription and non-prescription medications. Monica Jaramillo has no insurance coverage issues and co-pay is manageable. Co pay is $2,427.16., nofunding is available. Script being sent to [facility] to see if [employer] program can help her. The patient reports that he/she: ?? is able to swallow pills. ?? is able to open medication bottles/packages without problems. ?? is not experiencing any symptoms that will affect the ability to keep down medications (no nausea, vomiting, mucositis, or difficulty swallowing). ?? is willing to fill prescriptions with [facility]. (being sent to [facility] due to highcopay) What pharmacy would the patient like to have the medication dispensed from? [facility] phone [phone], fax [phone]. The patient verifies: ?? ability to read and understand the drug label instructions. ?? understanding of treatment plan with oral chemotherapy. ?? understanding that medication will be dispensed from [facility] pharmacy. This medication will be delivered to the home (instructed to call nurse if he/she does not hear from the pharmacy regarding delivery). ?? that she will need labs drawn on 01/08/22. documented in this encounter Plan of Treatment Upcoming Encounters Date Type Department Care Team (Late st Contact Info) Description 02/24/2024 9:00 AM EDT Office Visit Hematology/Oncology at [address] [phone] Shon Schneider MD [facility] [place] [address] [address] HEMATOLOGY AND ONCOLOGY [place], [place] [address] [phone] 02/24/2024 9:30 AM EDT Infusion Hematology Oncology at [address] [phone] 03/02/2024 11:00 AM EDT Office Visit Hematology/Oncology at [address] [phone] Shon Schneider MD [facility] [place] [address] [address] HEMATOLOGY AND ONCOLOGY [place], [place] [id number] 03/02/2024 12:30 PM EDT Infusion Hematology Oncology at [address] [phone] 03/09/2024 10:00 AM EDT Office Visit Hematology/Oncology at [address] [phone] Shon Schneider MD [facility] [place] [address] [address] HEMATOLOGY AND ONCOLOGY [place], [place] [address] 03/09/2024 10:30 AM EDT Infusion Hematology Oncology at [address] [phone] documented as of this encounter Goals Goal Patient Goal Type Associated Problems Recent Progress Patient-Stated? Author DH Home Medication Compliance and Understanding Patient Facing Action Plan On track( 019 3:22 PM EST) Ivana Ashraf, RPH Note: Remain 95% or better adherent to chemotherapy without severe side effects as assessed by days supply and patient reported adverse events at each refill documented as of this encounter Visit Diagnoses Not on filedocumented in this encounter Care Teams Superintendent Local Relationship Specialty Start Date End Date Jerzy Vidal MD [address] [place] [address] [place] [address] PCP - [facility] Medicine 12/04/18 documented as of this encounter
--- OUTSIDE RECORDS SUMMARY | 2024-02-24 01:18 | XMS_ITS | Encounter Summary ---
Author Organization [facility] [place] [address] Care Team Providers Care Plant Maintenance Worker Name Role Phone Jerzy Vidal MD Primary Care Provider [phone] Encounter Details Date Type Department Care Team (Latest Contact Info) Description 11/24/2021 4:00 PM EDT TH Visit (TeleHealth) Hematology/Oncology at [address] [phone] Shon Schneider MD [facility] [place] [address] Thymic carcinoma; Hypothyroidism, acquired Social History Tobacco Use Types Packs/Day Years Used Date Smoking Tobacco: Never Smokeless Tobacco: Never Sex and Gender Information Value Date Recorded Sex Assigned at Not on file Gender Identity Not on file Sexual Orientation Not on file documented as of this encounter Progress Notes * Shon Schneider MD - 11/24/2021 4:00 PM EDT Subjective: Patient ID: Monica Jaramillo is 66 [...] pleural effusion with compression atelectasis. transferred to [facility] for further evaluation and workup and [...] B. Biopsy of mediastinal mass 03/29 Path ([facility] review) - Mediastinum, mass, biopsy: 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 [facility] - CONSULT SLIDES FROM [facility]; [place], [place]: A. MEDIASTINUM, MASS, BIOPSY ([id number]; 03/22/2017): ? 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 ?Immunohistochemistry performed at the outside institution and reviewed at [facility] demonstrates the following staining profile in lesional cells: ? Positive - AE1/AE3, p40, PAX8, CD117, CD5(multifocal), CK7(scattered cells), synaptophysin, chromogranin ? Negative - CK20, TTF-1, GATA3, CD34 ? The immunohistochemical profile supports the above diagnosis. ? Ki67 (MIB-1) proliferation index performed at the referring institution and reviewed at [facility] is focally up to ~30%. NOTE: While diffuse synaptophysin and chromogranin expression is unusual for conventional thymic carcinoma, the overall histomorphology and immunophenotype is most in keeping with THYMIC SQUAMOUS CARCINOMA.?The extent of PAX8 and CD117 staining would be unusual for Nut carcinoma. B. MEDIASTINUM, ANTERIOR, 4.5 CM, ULTRASOUND GUIDED FINED NEEDLE ASPIRATION ([id number]; 03/22/17): The cytologic preparations were not reviewed [...] Second opinion with Dr. Roddy Vega in [place]. They reviewed the pathology and concurred they [...] therapy with pembrolizumab L. CT c/a/p 11/06/19 ([facility] second read) - IMPRESSION 1. Worsening left-sided [...] aortic aneurysm 5. Left calcified pleural plaques. 2. H/o atrial fibrillation 3. HTN 4. Echocardiogram 06/20/18 ([facility]) - Summary: 1. Preserved LV function [...] indices suggesting LV filling pressures. (LVEF 60-65%). LINDSAY Jaramillo is seen in f/u thymic carcinoma. The history is summarized above. This is a telephone encounter. She says she is doing ok. She has occasional SOB, not worse and it may actually be better. She is taking the lenvima at 14 mg per day. She had been off of the lenvantinib for about 3 weeks due to recurrent polycythemia and had restarted that around 10/31. She is tolerating that well. No n/v. The diarrhea is gone. She is eating better and has gained weight back. Her weight is stable at about 201#. She is enjoying cookin and is eating well. She checks her oxygen levels and these have been good, in the upper 90s. Her HR runs low at times, in the mornings. At other times it is in the 60s. She still has a rash on her arms intermittently. She uses a hydrocortisone cream and A and D ointment. The rash waxes and wanes. It is on her forearms mostly and on occasion on her thighs. She thinks this was present prior to the lenvima. Her energy level and strength seem to be pretty good. 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 Fam Hx: No h/o cancer Review of Systems Constitutional: Negative for activity change, appetite change, fatigue, fever and unexpected weightchange. HENT: Negative. Respiratory: Negative for cough. Cardiovascular: Negative for chest pain and leg swelling. Gastrointestinal: Negative for abdominal distention and abdominal pain. Genitourinary: Negative. Musculoskeletal: Negative. Skin: Negative. Neurological: Negative. Hematological: Negative. Psychiatric/Behavioral: Negative. All other systems reviewed and are negative. Objective: Physical Exam Neurological: Mental Status: She is alert. Labs: (11/05/21): WBC/ANC - 4.02/3400, HGB/Hct - 11.9/35.8, Plts - 224,000. BUN/Cr - 26/0.9. Na - 140, T bili - 0.9, Mg - 18. Lytes and LFTs o/w unremarkable TSH - [...] 22.01 1.01 06/19/21 55.03 07/14/21 35.55 1.09 EPO (2.6-18.5) 11/05/21 121 08/21/21 52.3 06/19/21 [...] 12.2 Started lenvatinib 08/18/20 (24 mg/day) CT personally reviewed, report above Assessment and Plan: Monica [...] also spoke with Dr. Shon Ramon at [facility] [place]. He agreed that gemcitabine plus capecitabine is [...] lagged behind the normalization of the Hgb. The CT chest done 07/14/21 showed overall stable disease although with slight decreased in a pericardial LN. She continued the same dose of lenvatinib, 14 mg per day. She increased the magnesium to 400 mg tid(Mag oxide). The TSH is a bit higher than it was in 09/01 but the FT4 is WNL She is on levothyroxineat 150 mcg/day and will continue that dose. A restaging CT scan was done on 11/05/21. The anterior mediastinal mass was stable. However, there were new (compared with the last scan) bilateral pleural effusions. This is presumably related to thethymic carcinoma, rather than something like CHF, although prior pleural fluid cytology was negative (08/2020). There have been effusions on prior scans which have waxed and waned. Cardiomyopathy is reported with lenvatinib. Her HR has been in the 40s. I asked her to see Dr. Vidal, have an ECG to besure there isn't evidence of heart block and discuss whether medication adjustment is indicated (she is on metoprolol and diltiazem). I had ordered an Echocardiogram with the idea that, If her cardiac function is ok, then we would assume that the effusions are related to the underlying cancer and we would talk about other options (eg everolimus, pemetrexed). The echocardiogram was done on 11/21/21 and showed normal LV size and function with an LVEF of 60-65%. The RV was mildly dilated with preserved function. She also had an ECG. I don't have that report but she is going to see Dr. Vidal on Tuesday. Interestingly,she feels that her SOB is better and notes that she has had effusions in the past which have resolved (cytology was negative). Whether the improvement was related to treatment or not is unclear. We have decided to continue the lenvima for now and repeat a chest CT in about two weeks. If the effusions have decreased, would continue to observe. If stable/larger, we may want to do a thoracentesis for further evaluation. If she is more SOB in the meantime, we could certainly have a thoracentesis done sooner. She received her second covid vaccine shot on 09/26/20 I provided care to the patient today via telephone call. The total time associated with this visit was 30 minutes. documented in this encounter Plan of Treatment Upcoming Encounters Date Type Department Care Team (Late st Contact Info) Description 02/24/2024 9:00 AM EDT Office Visit Hematology/Oncology at [address] [phone] Shon Schneider MD [facility] [place] [address] HEMATOLOGY [place] [address] 02/24/2024 9:30 AM EDT Infusion Hematology Oncology at [address] [phone] 03/02/2024 11:00 AM EDT Office Visit Hematology/Oncology at [address] [phone] Shon Schneider MD [facility] [place] [address] [address] HEMATOLOGY [place] [address] 03/02/2024 12:30 PM EDT Infusion Hematology Oncology at [address] [phone] 03/09/2024 10:00 AM EDT Office Visit Hematology/Oncology at [address] [phone] Shon Schneider MD [facility] [place] [address] Ciara Pitts APRN [address] [place] [address] DR HEMATOLOGY AND ONCOLOGY [place], [place] [phone] 03/09/2024 10:30 AM EDT Infusion Hematology Oncology at [address] [phone] documented as of this encounter Goals Goal Patient Goal Type Associated Problems Recent Progress Patient-Stated? Author DH Home Medication Compliance and Understanding Patient Facing Action Plan On track( 019 3:22 PM EST) No Ivana Vanegas, [facility] Note: Remain 95% or better adherent to chemotherapy without severe side effects as assessed by days supply and patient reported adverse events at each refill documented as of this encounter Visit Diagnoses Diagnosis Thymic carcinoma Malignant neoplasm of thymus Hypothyroidism, acquired Unspecified hypothyroidism Thymic carcinoma Malignant neoplasm of thymus documented in this encounter Care Teams Plant Maintenance Worker Relationship Specialty Start Date End Date Jerzy Vidal MD [address] [place] [address] [place] [address] PCP - General [facility] Medicine 12/04/18 documented as of this encounter
--- OUTSIDE RECORDS SUMMARY | 2024-02-24 01:18 | XMS_ITS | Encounter Summary ---
Author Organization [facility] [place] [address] Care Team Providers Care Stuffing Machine Operator Name Role Phone Jerzy Vidal MD Primary Care Provider [phone] Encounter Details Date Type Department Care Team (Latest Contact Info) Description 04/09/2022 11:00 AM EDT TH Visit (TeleHealth) Hematology/Oncology at [address] [phone] Shon Schneider MD [facility] [place] [address] Generalized edema; Depression, unspecified depression type; Thymic carcinoma Social History Tobacco Use Types Packs/Day Years Used Date Smoking Tobacco: Never Smokeless Tobacco: Never Sex and Gender Information Value Date Recorded Sex Assigned at Not on file Gender Identity Not on file Sexual Orientation Not on file documented as of this encounter Progress Notes * Shon Schneider MD - 04/09/2022 11:00 AM EDT Subjective: Patient ID: Monica [...] pleural effusion with compression atelectasis. transferred to [facility] for further evaluation and workup [...] B. Biopsy of mediastinal mass 03/29 Path ([facility] review) - Mediastinum, mass, biopsy: 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 [facility] - CONSULT SLIDES FROM [facility]; [place], [place]: A. MEDIASTINUM, MASS, BIOPSY ([id number]; 03/22/2017): ? 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 ?Immunohistochemistry performed at the outside institution and reviewed at [facility] demonstrates the following staining profile in lesional cells: ? Positive - AE1/AE3, p40, PAX8, CD117, CD5(multifocal), CK7(scattered cells), synaptophysin, chromogranin ? Negative - CK20, TTF-1, GATA3, CD34 ? The immunohistochemical profile supports the above diagnosis. ? Ki67 (MIB-1) proliferation index performed at the referring institution and reviewed at [facility] is focally up to ~30%. NOTE: While diffuse synaptophysin and chromogranin expression is unusual for conventional thymic carcinoma, the overall histomorphology and immunophenotype is most in keeping with THYMIC SQUAMOUS CARCINOMA.?The extent of PAX8 and CD117 staining would be unusual for Nut carcinoma. B. MEDIASTINUM, ANTERIOR, 4.5 CM, ULTRASOUND GUIDED FINED NEEDLE ASPIRATION ([id number]; 03/22/17): The cytologic preparations were not reviewed [...] above. D. Second opinion with Dr. Roddy Vgea in [place]. They reviewed the pathology and concurred they [...] therapy with pembrolizumab L. CT c/a/p 11/06/19 ([facility] second read) - IMPRESSION 1. Worsening left-sided [...] again on 04/02/22 with increased SOB. A thoracentesis was performed. Cytology was again negative for malignant cells. Today's visit was changed to a TeleHealth visit because of a personal issue. Physically, she has been feeling pretty well. Yesterday was a very good day. Her energy level was good and she up and around and active. The edema remains an issue. Her breathing has been better since the thoracentesis. She had a liter removed from the right side. She is going to have an outpt thoracentesis on the left on 04/12/22. While in the ED, she received IV lasix (possible 80 mg) and this was effective. The nextday, it seemed like things were better. She continues to take 40 mg bid at home. She feels like shegets more results from the AM dose. The edema is pretty much back to where it was. Her knees feels s tiff due to the edema. That may be a little better in the AM but increases as the day goes on. Her weight had been up to 244# when she went to the ED, now back down to 238#. She denies SOB. She is eating well. She does not add salt. Her bowels are regular. She took her vitals at home today - Weight stable at 238#, O2 - 96%, BP - 116/70, HR - 83 Soc Hx: , lives in [place], [place] Tob - Never Etoh - rare [...] alert. Psychiatric: Mood and Affect: Mood normal. Labs:(04/09/22); WBC/ANC - 4.02/3900, Hgb/Hct - 9.7/34.2, Plts - 226,000. BUN/Cr - 33/1.17. Na - 135, K - 3.7, Mg - 1.7, alb - 3.1. Lytes [...] 06/19/21 55.03 07/14/21 35.55 1.09 01/06/22 3.906 EPO (2.6-18.5) 11/05/21 121 08/21/21 52.3 06/19/21 [...] pembrolizumab. I spoke with Dr. Vega at [facility]. There were no clinical trials available [...] Shon Ramon at [facility] [place]. He agreed that gemcitabine plus capecitabine is [...] done on 04/05/22. The anterior mediastinal mass appears stable. The most significantchange is increase in bilateral pleural effusions and anasarca. She is going to have a left thoracentesis on 04/12/22. I will have her change the lasix to 80 mg once a day and see her in two weeks. Will have continue to hold the everolimus. This can be associated with edema and per case reports, may take several weeks to a few months to improve. She will continue the oral potassium at the same dose and I will see her again in two weeks. documented in this encounter Plan of Treatment Upcoming Encounters Date Type Department Care Team (Late st Contact Info) Description 02/24/2024 9:00 AM EDT Office Visit Hematology/Oncology at [address] [phone] Shon Schneider MD [facility] [place] [address] [address] [place] [address] 02/24/2024 9:30 AM EDT Infusion Hematology Oncology at [address] [phone] 03/02/2024 11:00 AM EDT Office Visit Hematology/Oncology at [address] [phone] Shon Schneider MD [facility] [place] [address] [address] [place] [address] 03/02/2024 12:30 PM EDT Infusion Hematology Oncology at [address] [phone] 03/09/2024 10:00 AM EDT Office Visit Hematology/Oncology at [address] [phone] Shon Schneider MD [facility] [place] [address] Ciara Pitts APRN [address] [place] [address] DR HEMATOLOGY AND ONCOLOGY [place], [place] [address] 03/09/2024 10:30 AM EDT Infusion Hematology Oncology at [address] [phone] documented as of this encounter Goals Goal [...] as of this encounter Visit Diagnoses Diagnosis Generalized edema Edema Depression, unspecified depression type 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 documented in this encounter Care Teams Stuffing Machine Operator Relationship Specialty Start Date End Date Jerzy Vidal MD [address] [place] [address] [place] [address] PCP - General [facility] Medicine 12/04/18 documented as of this encounter
--- OUTSIDE RECORDS SUMMARY | 2024-02-24 01:18 | XMS_ITS | Encounter Summary ---
Author Organization [facility] [place] [address] Care Team Providers Care Extracorporeal Circulation Specialist Name Role Phone Jerzy Vidal MD Primary Care Provider [phone] Encounter Details Date Type Department Care Team (Latest Contact Info) Description 03/23/2022 2:00 PM EDT TH Visit (TeleHealth) Hematology/Oncology at [address] [phone] Shon Schneider MD [facility] [place] [address] Thymic carcinoma; Hypothyroidism, unspecified type Social History Tobacco Use Types Packs/Day Years Used Date Smoking Tobacco: Never Smokeless Tobacco: Never Sex and Gender Information Value Date Recorded Sex Assigned at Not on file Gender Identity Not on file Sexual Orientation Not on file documented as of this encounter Progress Notes * Shon Schneider MD - 03/23/2022 2:00 PM EDT Subjective: Patient ID: Monica Jaramillo [...] pleural effusion with compression atelectasis. transferred to [facility] for further evaluation and workup [...] B. Biopsy of mediastinal mass 03/29 Path ([facility] [place]) - Mediastinum, mass, biopsy: 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 [facility] - CONSULT SLIDES FROM [facility]; [place], [place]: A. MEDIASTINUM, MASS, BIOPSY ([id number]; 03/22/2017): ? 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 ?Immunohistochemistry performed at the outside institution and reviewed at [facility] demonstrates the following staining profile in lesional cells: ? Positive - AE1/AE3, p40, PAX8, CD117, CD5(multifocal), CK7(scattered cells), synaptophysin, chromogranin ? Negative - CK20, TTF-1, GATA3, CD34 ? The immunohistochemical profile supports the above diagnosis. ? Ki67 (MIB-1) proliferation index performed at the referring institution and reviewed at [facility] is focally up to ~30%. NOTE: While diffuse synaptophysin and chromogranin expression is unusual for conventional thymic carcinoma, the overall histomorphology and immunophenotype is most in keeping with THYMIC SQUAMOUS CARCINOMA.?The extent of PAX8 and CD117 staining would be unusual for Nut carcinoma. B. MEDIASTINUM, ANTERIOR, 4.5 CM, ULTRASOUND GUIDED FINED NEEDLE ASPIRATION ([id number]; 03/22/17): The cytologic preparations were not reviewed [...] Second opinion with Dr. Roddy Vega in [place]. They reviewed the pathology and concurred they [...] therapy with pembrolizumab L. CT c/a/p 11/06/19 ([facility] [place] read) - IMPRESSION 1. Worsening left-sided [...] U. 01/12/22 - Began therapy with everolimus 2. H/o atrial fibrillation 3. HTN 4. [...] ed for two days (40 mg). She is about the same as she was when she was seen by Nadeen Srivastava. She was off the everolimus for about a week. Her biggest issue is the LE edema and it has not improved. If anything it is worse. Itextends from her ankles to her lower abdomen. The lasix dose is currently at 40 mg bid. She feels that she gets a diuretic response to this in the AM but not as much with the afternoon dose. Her breathing is ok. She denies SOB. She is eating well. She does not add salt. Her bowels are regular. The LE edema began after she started the everolimus. She has gained another 8# since her last visit. She took her vitals at home today - Weight stable at 238#, O2 - 95-98%, BP - 119/65, HR - 88 Soc Hx: , lives in [place], [place] Tob - Never Etoh - rare [...] are negative. Objective: Physical Exam Vitals reviewed. Constitutional: General: She is not in acute distress. HENT: Head: Normocephalic and atraumatic. Mouth/Throat: Pharynx: Oropharynx is clear. No oropharyngeal exudate. Eyes: General: No scleral icterus. Cardiovascular: Rate and Rhythm: Normal rate and regular rhythm. Pulmonary: Effort: Pulmonary effort is normal. No respiratory distress. Breath sounds: No wheezing or rales. Musculoskeletal: General: Swelling (2-3+ LE edema) present. Skin: General: Skin is warm and dry. Findings: No rash. Neurological: General: No focal deficit present. Mental Status: She is alert. Psychiatric: Mood and Affect: Mood normal. Labs:(03/19/22): WBC/ANC - 3.08/2399, Hgb/Hct - 8.2/27.9, Plts [...] pembrolizumab. I spoke with Dr. Vega at [facility]. There were no clinical trials [...] also spoke with Dr. Shon Ramon at [facility] [place]. He agreed that gemcitabine plus capecitabine is [...] of the everolimus as well as myelosuppresison. The everolimus has been held since 03/12/22. She restarted this a couple of days ago. I am going to have her hold this again. She will increase the potassium from 20 to 40 meq per day. I am going to get a CT c/a/p as well as labs and see her back after that. documented in this encounter Plan of Treatment Upcoming Encounters Date Type Department Care Team (Late st Contact Info) Description 02/24/2024 9:00 AM EDT Office Visit Hematology/Oncology at [address] [phone] Shon Schneider MD [facility] [place] [address] Ciara Pitts [address] [place] [address] 02/24/2024 9:30 AM EDT Infusion Hematology Oncology at [address] [phone] 03/02/2024 11:00 AM EDT Office Visit Hematology/Oncology at [address] [phone] Shon Schneider MD [facility] [place] [address] [place] [address] 03/02/2024 12:30 PM EDT Infusion Hematology Oncology at [address] [phone] 03/09/2024 10:00 AM EDT Office Visit Hematology/Oncology at [address] [phone] Shon Schneider MD [facility] [place] [address] Ciara Pitts APRN [address] [place] [address] DR HEMATOLOGY AND ONCOLOGY [place], [place] [phone] 03/09/2024 10:30 AM EDT Infusion Hematology Oncology at [address] [phone] documented as of this encounter Goals Goal Patient Goal Type Associated Problems Recent Progress Patient-Stated? Author DH Home Medication Compliance and Understanding Patient Facing Action Plan On track( 019 3:22 PM EST) No Ivana Vanegas, [facility] Note: Remain 95% or better adherent to chemotherapy without severe side effects as assessed by days supply and patient reported adverse events at each refill documented as of this encounter Visit Diagnoses Diagnosis Thymic carcinoma Malignant neoplasm of thymus Hypothyroidism, unspecified type Thymic carcinoma Malignant neoplasm of thymus documented in this encounter Care Teams Extracorporeal Circulation Specialist Relationship Specialty Start Date End Date Jerzy Vidal MD [address] [place] [address] [place] [address] PCP - [facility] 12/04/18 documented as of this encounter
--- OUTSIDE RECORDS SUMMARY | 2024-02-24 01:18 | XMS_ITS | Encounter Summary ---
[place] [address] Care Team Providers Care Aircraft Engine Mechanic Supervisor Name Role Phone Jerzy Vidal MD Primary Care Provider Reason for Visit * Reason Comments Specialty Pharmacy Review Encounter Details Date Type Department Care Team (Late Contact Info) Description 01/21/2022 Specialty [place] [address] Nguyen Gardner Gretchen Social History Tobacco Use Types Packs/Day Years Used Date Smoking Tobacco: Never Smokeless Tobacco: Never Sex and Gender Information Value Date Recorded Sex Assigned at Not on file Gender Identity Not on file Sexual Orientation Not on file documented as of this encounter Progress Notes * Nguyen Gardner RPH - 01/21/2022 11:59 PM EDT The [facility] has completed a benefits investigation for Monica Jaramillo to review their eligibility to fill at [facility]. Per patient's medication list they are prescribed everolimus and the medication is able to be filled at the [facility]. Patient getting medication filled at [facility] to utilize their internal financial support program. documented in this encounter Plan of Treatment Upcoming Encounters Date Type Department Care Team (Late Contact Info) Description 02/24/2024 9:00 AM EDT Office Visit Hematology/Oncology at [address] [phone] Shon Schneider MD [facility] [place] [address] [address] HEMATOLOGY AND ONCOLOGY [place], [place] [phone] 02/24/2024 9:30 AM EDT Infusion Hematology Oncology at [address] [phone] 03/02/2024 11:00 AM EDT Office Visit Hematology/Oncology at [address] [phone] Shon Schneider MD [facility] [place] [address] [address] HEMATOLOGY AND ONCOLOGY [place], [place] [address] 03/02/2024 12:30 PM EDT Infusion Hematology Oncology at [address] [phone] 03/09/2024 10:00 AM EDT Office Visit Hematology/Oncology at [address] [phone] Shon Schneider MD [facility] [place] [address] Ciara Pitts [address] HEMATOLOGY AND ONCOLOGY [place], [place] [phone] 03/09/2024 10:30 AM EDT Infusion Hematology Oncology at [address] [phone] documented as of this encounter Goals Goal Patient Goal Type Associated Problems Recent Progress Patient-Stated? Author DH Home Medication Compliance and Understanding Patient Facing Action Plan On track( 019 3:22 PM EST) No Ivana Vanegas, [facility] Note: Remain 95% or better adherent to chemotherapy without severe side effects as assessed by days supply and patient reported adverse events at each refill documented as of this encounter Visit Diagnoses Not on filedocumented in this encounter Care Teams Aircraft Engine Mechanic Supervisor Relationship Specialty Start Date End Date Jerzy Vidal MD [address] [place] [address] [place] [address] PCP - [facility] Medicine 12/04/18 documented as of this encounter
--- OUTSIDE RECORDS SUMMARY | 2024-02-24 01:18 | XMS_ITS | Encounter Summary ---
Author Organization [facility] [place] [address] Care Team Providers Care Paving Crew Foreman Name Role Phone Jerzy Vidal MD Primary Care Provider [phone] Encounter Details Date Type Department Care Team (Late st Contact Info) Description 08/21/2021 3:30 PM EST Office Visit Hematology/Oncology at [address] [phone] Nadeen Srivastava, RN Thymic carcinoma Social History Tobacco Use Types Packs/Day Years Used Date Smoking Tobacco: Never Smokeless Tobacco: Never Sex and Gender Information Value Date Recorded Sex Assigned at Not on file Gender Identity Not on file Sexual Orientation Not on file documented as of this encounter Last Filed Vital Signs Vital Sign Reading Time Taken Comments Blood Pressure 111/66 08/21/2021 2:59 PM EST Pulse 54 08/21/2021 2:59 PM EST Temperature 36.8 ??C (98.2 ??F) 08/21/2021 2:59 PM ES T Respiratory Rate 18 08/21/2021 2:59 PM EST Oxygen Saturation 99% 08/21/2021 2:59 PM EST Inhaled Oxygen Concentration - - Weight 78.7 kg (173 lb 9.6 oz) 08/21/2021 2:59 P M EST Height 175.3 cm (5' 9.02) 08/21/2021 2:59 PM ES T Body Mass Index 25.62 08/21/2021 2:59 PM EST documented in this encounter Progress Notes * Nadeen Srivastava, PEARL FISHERMAN - 08/21/2021 3:30 PM EST Subjective: Patient ID: Monica Jaramillo [...] pleural effusion with compression atelectasis. transferred to [facility] for further evaluation and workup and had [...] B. 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 [facility] - CONSULT SLIDES FROM ; [place], [place]: A. MEDIASTINUM, MASS, BIOPSY ([id number]; 03/22/2017): ? 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 ?Immunohistochemistry performed at the outside institution and reviewed at [facility] demonstrates the following staining profile in lesional cells: ? Positive - AE1/AE3, p40, PAX8, CD117, CD5(multifocal), CK7(scattered cells), synaptophysin, chromogranin ? Negative - CK20, TTF-1, GATA3, CD34 ? The immunohistochemical profile supports the above diagnosis. ? Ki67 (MIB-1) proliferation index performed at the referring institution and reviewed at [facility] is focally up to ~30%. NOTE: While diffuse synaptophysin and chromogranin expression is unusual for conventional thymic carcinoma, the overall histomorphology and immunophenotype is most in keeping with THYMIC SQUAMOUS CARCINOMA.?The extent of PAX8 and CD117 staining would be unusual for Nut carcinoma. B. MEDIASTINUM, ANTERIOR, 4.5 CM, ULTRASOUND GUIDED FINED NEEDLE ASPIRATION ([id number]; 03/22/17): The cytologic preparations were not reviewed [...] Second opinion with Dr. Roddy Vega in [place]. They reviewed the pathology and concurred they [...] therapy with pembrolizumab L. CT c/a/p 11/06/19 ([facility] second read) - [...] Partially image ventral hernia sac noted. P. Started therapy with lenvatinib on 08/18/20, 24 mg PO daily Q. CT c/a/p 10/28/20 Chest - Impression: Considerable [...] 6. Markedly distended gallbladder, similar to previous R. Lenvatinib held 04/17/21 due to polycythemia Restarted 05/01/21 at 14 [address] chest 07/14/21 - Impression 1. Stable [...] identified, suggestive of thrombus. Recommend clinical correlation. 2. H/o atrial fibrillation 3. HTN 4. [...] indices suggesting LV filling pressures. (LVEF 60-65%). HPI Monica Jaramillo is seen in f/u thymic carcinoma. The history is summarized above. INTERVAL HISTORY(08/21/21)- Monica returns to clinic today for follow up. She is accompanied by her daughter. She is feeling pretty well. She is tolerating the lenvatinib well. She has good days and bad days. Some days she can eat all day and other days she wakes up nauseated and can't eat. She feelsthat the lenvatinib is working well for her even though she has some down days. She has been havingmore energy and she is cooking again. She feels her diet is healthier now than it ever was. She does use protein supplements when she remembers. Her energy level and strength seem to be pretty good. She says she feels stronger than she has for some time. No other focal complaints. Soc Hx: , lives in [place], [place] Tob - Never Etoh - rare Works [...] and are negative. Objective: Physical Exam Constitutional: Appearance: Normal appearance. Eyes: General: No scleral icterus. Conjunctiva/sclera: Conjunctivae normal. Pupils: Pupils are equal, round, and reactive to light. Cardiovascular: Rate and Rhythm: Normal rate. Pulmonary: Effort: Pulmonary effort is normal. Breath sounds: Normal breath sounds. No wheezing. Abdominal: Palpations: Abdomen is soft. There is no mass. Tenderness: There is no abdominal tenderness. Lymphadenopathy: Cervical: No cervical adenopathy. Skin: General: Skin is warm and dry. Findings: No rash. Neurological: General: No focal deficit present. Mental Status: She is alert. BP 111/66 (Patient Position: Sitting) Pulse 54 Temp 36.8 ??C (98.2 ??F) (Temporal) Resp 18 Ht 175.3 cm (5' 9.02) Wt 78.7 kg (173 lb 9.6 oz) SpO2 99% BMI 25.62 kg/m?? Wt Readings from Last 3 Encounters: 08/21/21 78.7 kg (173 lb 9.6 oz) 05/01/21 94.6 kg (208 lb 9.6 oz) 02/20/21 99.2 kg (218 lb 12.8 oz) Labs: 08/21/21-WBC-4.35 Hgb/Hct-15.9/45.5 Plt-144 ANC-2.20 Ca-9.0 Glucose-89 BUN/Cr-15/1.0 Albumin-3.0 T. Bili-1.1 Alk phos-64 Na-132 K+- 3.7 AST-30 ALT-15 Mg-1.5 TSH-15.28 Free T4-1.31 (07/14/21): WBC/ANC - 4., Hgb/Hct - 15.2/44.8, [...] 06/19/21 55.03 07/14/21 35.55 1.09 EPO (2.6-18.5) 06/19/21 27.4 05/14/21 111 05/06/21 123 03/05/21 66.5 Hgb (12-16) 07/14/21 15.2 06/19/21 16.3 05/14/21 14.1 05/06/21 [...] pembrolizumab. I spoke with Dr. Vega at [facility] [place]. There were no clinical trials available there. [...] also spoke with Dr. Shon Ramon at [facility] [place]. He agreed that gemcitabine plus capecitabine is [...] that this the cancer is producing EPO. We had her discontinue the lenvatinib on 04/17/21. Recheck of the CBC showed normalization of the Hgb. The lenvatinib was restarted at 14 mg per day on 05/02/21. She is tolerating this well. The EPO level has decreased although the decrease has lagged behind the normalization of the Hgb. The CT chest done 07/14/21 shows overall stable disease although with slight decreased in a pericardial LN. She will continue the same dose of lenvatinib, 14 mg per day. She is going to increase the magnesium to 400 mg tid (Mag oxide). The TSH is a bit better. She is on levothyroxine at 150 mcg/day and will continue that dose. She received her second covid vaccine shot on 09/26/20 Plan: 1. Continue lenvatinib 14mg po daily. 2. Telehealth visit in 6 weeks with CBC,CMP, TSH, FT4. Monica voiced understanding of the plan and was given an opportunity to ask questions which I answered to the best of my ability. Monica Understands she can call the clinic between visits with any questions/concerns or new symptoms. Nadeen Srivastava MSN, PEARL FISHERMAN, AOCNP Medical Oncology documented in this encounter Plan of Treatment Upcoming Encounters Date Type Department Care Team (Late st Contact Info) Description 02/24/2024 9:00 AM EDT Office Visit Hematology/Oncology at [address] [phone] Shon Schneider MD [facility] [place] [address] Ciara Pitts APRN [address] HEMATOLOGY [place] [address] 02/24/2024 9:30 AM EDT Infusion Hematology Oncology at [address] [phone] 03/02/2024 11:00 AM EDT Office Visit Hematology/Oncology at [address] [phone] Shon Schneider MD [facility] [place] [address] [address] HEMATOLOGY AND ONCOLOGY [place], [place] [id number] 03/02/2024 12:30 PM EDT Infusion Hematology Oncology at [address] [phone] 03/09/2024 10:00 AM EDT Office Visit Hematology/Oncology at [address] [phone] Shon Schneider MD [facility] [place] [address] [address] HEMATOLOGY AND ONCOLOGY [place], [place] [phone] 03/09/2024 10:30 AM EDT Infusion Hematology Oncology at [address] [phone] documented as of this encounter Goals Goal [...] thymus documented in this encounter Care Teams Paving Crew Foreman Relationship Specialty Start Date End Date Jerzy Vidal MD [address] [place] [address] [place] [address] PCP - [facility] Medicine 12/04/18 documented as of this encounter
--- OUTSIDE RECORDS SUMMARY | 2024-02-24 01:18 | XMS_ITS | Encounter Summary ---
Author Organization [facility] [place] [address] Care Team Providers Care Internet Marketing Coordinator Name Role Phone Jerzy Vidal MD Primary Care Provider [phone] Encounter Details Date Type Department Care Team (Late Contact Info) Description 02/09/2022 Orders Only Hematology [place] [address] Shon Schneider MD [facility] [place] [address] Social History Tobacco Use Types Packs/Day Years [...] AM EDT Office Visit Hematology/Oncology at [address] [phone] Shon Schneider MD [facility] [place] [address] Ciara Pitts APRN [address] [place] [address] DR HEMATOLOGY [place] [address] 02/24/2024 9:30 AM EDT Infusion Hematology Oncology at [address] [phone] 03/02/2024 11:00 AM EDT Office Visit Hematology/Oncology at [address] [phone] Shon Schneider MD [facility] [place] [address] HEMATOLOGY [place] [address] 03/02/2024 12:30 PM EDT Infusion Hematology Oncology at [address] [phone] 03/09/2024 10:00 AM EDT Office Visit Hematology/Oncology at [address] [phone] Shon Schneider MD [facility] [place] [address] [address] HEMATOLOGY [place] [address] 03/09/2024 10:30 AM EDT Infusion Hematology Oncology at [address] [phone] documented as of this encounter Goals Goal Patient Goal Type Associated Problems Recent Progress Patient-Stated? Author DH Home Medication Compliance and Understanding Patient Facing Action Plan On track( 019 3:22 PM EST) Ivana Ashraf, [facility] Note: Remain 95% or better adherent to chemotherapy without severe side effects as assessed by days supply and patient reported adverse events at each refill documented as of this encounter Visit Diagnoses Not on filedocumented in this encounter Care Teams Internet Marketing Coordinator Relationship Specialty Start Date End Date Jerzy Vidal MD [address] [place] [address] [place] [address] PCP - [facility] Medicine 12/04/18 documented as of this encounter
--- OUTSIDE RECORDS SUMMARY | 2024-02-24 01:18 | XMS_ITS | Encounter Summary ---
Author Organization [facility] [place] [address] Care Team Providers Care Database Marketing Specialist Name Role Phone Jerzy Vidal MD Primary Care Provider [phone] Reason for Visit * Reason Onset Date Comments Diarrhea 10/01/2021 Encounter Details Date Type Department Care Team (Late st Contact Info) Description 10/01/2021 Telephone Hematology Oncology at [address] [phone] Eden Vieira RN Diarrhea Social History Tobacco Use Types Packs/Day Years Used Date Smoking Tobacco: Never Smokeless Tobacco: Never Sex and Gender Information Value Date Recorded Sex Assigned at Not on file Gender Identity Not on file Sexual Orientation Not on file documented as of this encounter Miscellaneous Notes * Telephone Encounter - Eden Vieira RN - 10/01/2021 1:46 PM EDT I checked in with Monica. She is on top of controlling her diarrhea. Her appt has been rescheduled for next week. She does not need anything from us at this time but said she will call if she does. ----- Message from Princess Barros sent at 10/01/2021 1:35 PM EDT ----- Regarding: Diarrhea from [place] Monica called to reschedule her TOV for tomorrow because she was unable to have labs drawn, due to diarrhea. She said she gets diarrhea for 2-3 days every couple weeks and says it's from her lenvatinib (Lenvima) 14 mg/day(10 mg x 1-4 mg x 1) capsule [[id number]]. She takes Lenvima daily and said that overallshe feels fine, the diarrhea is more of an inconvenience because she can't leave her house. She is taking immodium and nausea meds to relieve the symptoms, as prescribed. I rescheduled her TOV to next Tuesday so she can get her labs done at [facility] next . Aside from that, she said she has improved her eating and meal planning, and says she feels she hasmade strides with taking better care of herself. When you get a chance, can you please check in on her? Her number is [phone]. documented in this encounter Plan of Treatment Upcoming Encounters Date Type Department Care Team (Late st Contact Info) Description 02/24/2024 9:00 AM EDT Office Visit Hematology/Oncology at [address] [phone] Shon Schneider MD [facility] [place] [address] [address] [place] [address] 02/24/2024 9:30 AM EDT Infusion Hematology Oncology at [address] [phone] 03/02/2024 11:00 AM EDT Office Visit Hematology/Oncology at [address] [phone] Shon Schneider MD [facility] [place] [address] Ci[address] Pitts [address] HEMATOLOGY AND ONCOLOGY [place], [place] [id number] 03/02/2024 12:30 PM EDT Infusion Hematology Oncology at [address] [phone] 03/09/2024 10:00 AM EDT Office Visit Hematology/Oncology at [address] [phone] Shon Schneider MD [facility] [place] [address] Ciara Pitts APRN [address] [place] [address] DR [place] [address] 03/09/2024 10:30 AM EDT Infusion Hematology Oncology at [address] [phone] documented as of this encounter [...] on filedocumented in this encounter Care Teams Database Marketing Specialist Relationship Specialty Start Date End Date Jerzy Vidal MD [address] [place] [address] [place] [address] PCP - [facility] 12/04/18 documented as of this encounter
--- OUTSIDE RECORDS SUMMARY | 2024-02-24 01:18 | XMS_ITS | Encounter Summary ---
Author Organization [facility] [place] [address] Care Team Providers Care Optical Fabrication Technician Name Role Phone Jerzy Vidal MD Primary Care Provider [phone] Encounter Details Date Type Department Care Team (Late st Contact Info) Description 12/22/2021 2:00 PM EDT TH Visit (TeleHealth) Hematology/Oncology at [address] [phone] Shon Schneider MD [facility] [place] [address] Thymic carcinoma Social History Tobacco Use Types Packs/Day Years Used Date Smoking Tobacco: Never Smokeless Tobacco: Never Sex and Gender Information Value Date Recorded Sex Assigned at Not on file Gender Identity Not on file Sexual Orientation Not on file documented as of this encounter Progress Notes * Shon Schneider MD - 12/22/2021 2:00 PM EDT Subjective: Patient ID: Monica [...] pleural effusion with compression atelectasis. transferred to [facility] for further evaluation and workup and [...] B. Biopsy of mediastinal mass 03/29 Path ([facility] [place]) - Mediastinum, mass, biopsy: 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 [facility] - CONSULT SLIDES FROM [facility]; [place], [place]: A. MEDIASTINUM, MASS, BIOPSY ([id number]; 03/22/2017): ? 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 ?Immunohistochemistry performed at the outside institution and reviewed at [facility] demonstrates the following staining profile in lesional cells: ? Positive - AE1/AE3, p40, PAX8, CD117, CD5(multifocal), CK7(scattered cells), synaptophysin, chromogranin ? Negative - CK20, TTF-1, GATA3, CD34 ? The immunohistochemical profile supports the above diagnosis. ? Ki67 (MIB-1) proliferation index performed at the referring institution and reviewed at [facility] is focally up to ~30%. NOTE: While diffuse synaptophysin and chromogranin expression is unusual for conventional thymic carcinoma, the overall histomorphology and immunophenotype is most in keeping with THYMIC SQUAMOUS CARCINOMA.?The extent of PAX8 and CD117 staining would be unusual for Nut carcinoma. B. MEDIASTINUM, ANTERIOR, 4.5 CM, ULTRASOUND GUIDED FINED NEEDLE ASPIRATION ([id number]; 03/22/17): The cytologic preparations were not reviewed [...] Second opinion with Dr. Roddy Vega in [place]. They reviewed the pathology and concurred they [...] therapy with pembrolizumab L. CT c/a/p 11/06/19 ([facility] [place] [place] second read) - [...] anterior mediastinal mass consistent with patient's known tymic carcinoma 2. Marked interval improvement of bilateral pleural effusions 3. Stable mediastinal lymph nodes 4. Stable ascending aortic aneurysm 5. Interval resolution of small ascites seen on prior exam. 6. Stable to mildly improved subcutaneous soft tissue edema 2. H/o atrial fibrillation 3. HTN 4. Echocardiogram 06/20/18 ([facility]) - Summary: 1. Preserved LV [...] summarized above. This is a telephone encounter. I had seen Monica in [facility] on . At that time she had a a signifcant rash. I had her stop the lenvatinib and started her on prednisone. The rash has improved. She says the lesions are drying up and have improved. The itching has resolved. She has started to eat moreand has gained weight. 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 Fam Hx: No h/o cancer Review of Systems Constitutional: Negative for activity change, appetite change, fatigue, fever and unexpected weightchange. HENT: Negative. Respiratory: Negative for cough. Cardiovascular: Negative for chest pain and leg swelling. Gastrointestinal: Negative for abdominal distention and abdominal pain. Genitourinary: Negative. Musculoskeletal: Negative. Skin: Positive for rash (improving). Neurological: Negative. Hematological: Negative. Psychiatric/Behavioral: Negative. All other systems reviewed and are negative. Objective: Physical Exam Neurological: Mental Status: She is alert. Labs: (12/11/21): WBC/ANC - 2.01/1800, Hgb/Hct - 13.8/40.4, [...] did a peer to peer review (Dr. Osobrn) for this. This was not approved at [...] also spoke with Dr. Shon Ramon at [facility] [place]. He agreed that gemcitabine plus capecitabine is [...] rash has improved, the itching has resolved. She will complete the prednisone taper andwill let me know if the rash does not continue to improve. I will plan to see her next week. Given the apparent reaction to lenvatinib, I would not rechallenge with that. Other options includeeverolimus and pemetrexed. We talked specifically today about trying everolimus. We will re-addressthis at the time of her return. I provided care to the patient today via telephone call. The total time associated with this visit was 15 minutes. documented in this encounter Plan of Treatment Upcoming Encounters Date Type Department Care Team (Late st Contact Info) Description 02/24/2024 9:00 AM EDT Office Visit Hematology/Oncology at [address] [phone] Shon Schneider MD [facility] [address] [address] HEMATOLOGY AND ONCOLOGY [place], [place] [address] 02/24/2024 9:30 AM EDT Infusion Hematology Oncology at [address] [phone] 03/02/2024 11:00 AM EDT Office Visit Hematology/Oncology at [address] [phone] Shon Schneider MD [facility] [place] [address] [address] HEMATOLOGY AND ONCOLOGY [place], [place] [address] 03/02/2024 12:30 PM EDT Infusion Hematology Oncology at [address] [phone] 03/09/2024 10:00 AM EDT Office Visit Hematology/Oncology at [address] [phone] Shon Schneider MD [facility] [place] [address] Ciara Pitts [address] HEMATOLOGY AND ONCOLOGY [place], [place] [address] 03/09/2024 10:30 AM EDT Infusion Hematology Oncology at [address] [phone] documented as of this encounter Goals Goal Patient Goal Type Associated Problems Recent Progress Patient-Stated? Author DH Home Medication Compliance and Understanding Patient Facing Action Plan On track( 019 3:22 PM EST) No Ivana Vanegas, [facility] Note: Remain 95% or better adherent to chemotherapy without severe side effects as assessed by days supply and patient reported adverse events at each refill documented as of this encounter Visit Diagnoses Diagnosis 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 documented in this encounter Care Teams Optical Fabrication Technician Relationship Specialty Start Date End Date Jerzy Vidal MD [address] [place] [address] [place] [address] PCP - [facility] Medicine 12/04/18 documented as of this encounter
--- OUTSIDE RECORDS SUMMARY | 2024-02-24 01:18 | XMS_ITS | Encounter Summary ---
Author Organization [facility] Address [facility] [place] [address] Care Team Providers Care Director [employer] Name Role Phone Jerzy Vidal MD Primary Care Provider [phone] Encounter Details Date Type Department Care Team (Latest Contact Info) Description 01/21/2022 1:30 PM EDT TH Visit (TeleHealth) Hematology [place] [phone] Shon Schneider MD [facility] [place] [address] Thymic carcinoma; Hypokalemia; Hypomagnesemia; Leg edema; Hypothyroidism, acquired; Congestive heart failure, unspecified HF chronicity, unspecified heart failure type Social History Tobacco Use Types Packs/Day Years Used Date Smoking Tobacco: Never Smokeless Tobacco: Never Sex and Gender Information Value Date Recorded Sex Assigned at Not on file Gender Identity Not on file Sexual Orientation Not on file documented as of this encounter Progress Notes * Shon Schneider MD - 01/21/2022 1:30 PM EDT Subjective: Patient ID: Monica [...] B. Biopsy of mediastinal mass 03/29 [place] [place] - Mediastinum, mass, biopsy: 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 [facility] - CONSULT SLIDES FROM [facility]; [place], [place]: A. MEDIASTINUM, MASS, BIOPSY ([id number]; 03/22/2017): ? 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 ?Immunohistochemistry performed at the outside institution and reviewed at [facility] demonstrates the following staining profile in lesional cells: ? Positive - AE1/AE3, p40, PAX8, CD117, CD5(multifocal), CK7(scattered cells), synaptophysin, chromogranin ? Negative - CK20, TTF-1, GATA3, CD34 ? The immunohistochemical profile supports the above diagnosis. ? Ki67 (MIB-1) proliferation index performed at the referring institution and reviewed at [facility] is focally up to ~30%. NOTE: While diffuse synaptophysin and chromogranin expression is unusual for conventional thymic carcinoma, the overall histomorphology and immunophenotype is most in keeping with THYMIC SQUAMOUS CARCINOMA.?The extent of PAX8 and CD117 staining would be unusual for Nut carcinoma. B. MEDIASTINUM, ANTERIOR, 4.5 CM, ULTRASOUND GUIDED FINED NEEDLE ASPIRATION ([id number]; 03/22/17): The cytologic preparations were not reviewed [...] Second opinion with Dr. Roddy Vega in [place]. They reviewed the pathology and concurred they [...] therapy with pembrolizumab L. CT c/a/p 11/06/19 [place] [place] - IMPRESSION 1. [...] atrial fibrillation 3. HTN 4. Echocardiogram 06/20/18 ([facility]) - Summary: 1. Preserved LV [...] history is summarized above. This is a telehealth encounter. On 01/12/22, she was started on therapy with everolimus. She was in the ED on 01/19 with SOB. A thoracentesis was performed with removal of almost 1L of fluid (per d/c summary). She was also told that it she had evidence of heart failure with a high BNP, LE edema and a pericardial effusion. She was given lasix and the ED and the oral dose was doubled for two days (40 mg). She has felt better since the effusion was removed. She is feeling pretty well overall. Her breathing is almost 100% . She has no cough. Vitals today: HR - 68, BP - 115/67, O2 sat - 97%. Weight 220#. She is eating well. She thinks the LE edema is about the same. Her knees are still stiff, as withfluid. She says there is fluid above the knee. No nausea, no stomatitis. She does not feel that responds well to 20 mg of lasix but does better with 40 mg per day. Her bowels are regular. Soc Hx: , lives in [place], [place] Tob - Never Etoh - rare [...] distress. Neurological: Mental Status: She is alert. Labs:(01/19/22): WBC/ANC - 2.10/1499, Hgb/Hct - 11.2/33.6, Plts [...] also spoke with Dr. Shon Ramon at [facility]. He agreed that gemcitabine plus capecitabine is [...] with that. Other options includeeverolimus and pemetrexed. On 01/12/22 she began therapy [...] days. The cytology from the thoracentesis is pending. She is feeling better. She is going to continue the lasix at 40 meq/day. We will add potassium, 20 meq/day. She will continue the everolimus and I will see her next week and recheck labs. She would like to include a repeat proBNP and she will f/u with Dr. Vidal as well. documented in this encounter Plan of Treatment Upcoming Encounters Date Type Department Care Team (Late st Contact Info) Description 02/24/2024 9:00 AM EDT Office Visit Hematology/Oncology at [address] [phone] Shon Schneider MD [facility] [place] [address] [address] [place] [address] 02/24/2024 9:30 AM EDT Infusion Hematology Oncology at [address] [phone] 03/02/2024 11:00 AM EDT Office Visit Hematology/Oncology at [address] [phone] Shon Schneider MD [facility] [place] [place] [address] HEMATOLOGY AND ONCOLOGY [place], [place] [address] 03/02/2024 12:30 PM EDT Infusion Hematology Oncology at [address] [phone] 03/09/2024 10:00 AM EDT Office Visit Hematology/Oncology at [address] [phone] Shon Schneider MD [facility] [place] [address] Ciara Pitts APRN [address] [place] [address] DR HEMATOLOGY AND ONCOLOGY [place], [place] [address] 03/09/2024 10:30 AM EDT Infusion Hematology Oncology at [address] [phone] documented as of this encounter Goals Goal [...] Diagnosis Thymic carcinoma Malignant neoplasm of thymus Hypokalemia Hypopotassemia Hypomagnesemia Disorders of magnesium metabolism Leg edema Edema Hypothyroidism, acquired Unspecified hypothyroidism Congestive heart failure, unspecified HF chronicity, unspecified heart failure type Thymic carcinoma Malignant neoplasm of thymus documented in this encounter Care Teams Director [employer] Relationship Specialty Start Date End Date Jerzy Vidal MD [address] [place] [address] [place] [address] PCP - [facility] Medicine 12/04/18 documented as of this encounter
--- OUTSIDE RECORDS SUMMARY | 2024-02-24 01:18 | XMS_ITS | Encounter Summary ---
Author Organization [facility] [place] [address] Care Team Providers Care Logging Crew Supervisor Name Role Phone Jerzy Vidal MD Primary Care Provider [phone] Encounter Details Date Type Department Care Team (Latest Contact Info) Description 01/12/2022 2:30 PM EDT TH Visit (TeleHealth) Hematology/Oncology at [address] [phone] Shon Schneider MD [facility] [place] [address] Thymic carcinoma; Normocytic anemia Social History Tobacco Use Types Packs/Day Years Used Date Smoking Tobacco: Never Smokeless Tobacco: Never Sex and Gender Information Value Date Recorded Sex Assigned at Not on file Gender Identity Not on file Sexual Orientation Not on file documented as of this encounter Progress Notes * Shon Schneider MD - 01/12/2022 2:30 PM EDT Subjective: Patient ID: Monica [...] pleural effusion with compression atelectasis. transferred to [facility] for further evaluation and workup and [...] B. Biopsy of mediastinal mass 03/29 Path ([facility] [place]) - Mediastinum, mass, biopsy: 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 [facility] - CONSULT SLIDES FROM [facility]; [place], [place]: A. MEDIASTINUM, MASS, BIOPSY ([id number]; 03/22/2017): ? 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 ?Immunohistochemistry performed at the outside institution and reviewed at [facility] demonstrates the following staining profile in lesional cells: ? Positive - AE1/AE3, p40, PAX8, CD117, CD5(multifocal), CK7(scattered cells), synaptophysin, chromogranin ? Negative - CK20, TTF-1, GATA3, CD34 ? The immunohistochemical profile supports the above diagnosis. ? Ki67 (MIB-1) proliferation index performed at the referring institution and reviewed at [facility] is focally up to ~30%. NOTE: While diffuse synaptophysin and chromogranin expression is unusual for conventional thymic carcinoma, the overall histomorphology and immunophenotype is most in keeping with THYMIC SQUAMOUS CARCINOMA.?The extent of PAX8 and CD117 staining would be unusual for Nut carcinoma. B. MEDIASTINUM, ANTERIOR, 4.5 CM, ULTRASOUND GUIDED FINED NEEDLE ASPIRATION ([id number]; 03/22/17): The cytologic preparations were not reviewed [...] Second opinion with Dr. Roddy Vega in [place]. They reviewed the pathology and concurred they [...] therapy with pembrolizumab L. CT c/a/p 11/06/19 ([facility] second read) - IMPRESSION 1. Worsening left-sided [...] atrial fibrillation 3. HTN 4. Echocardiogram 06/20/18 ([facility]) - Summary: 1. Preserved LV function [...] telephone encounter. I had seen Monica in [facility] on . At that time she had a a signifcant rash. I had her stop the lenvatinib and started her on prednisone. She took the prednisone for about 8 days and then stopped. The pruritis is gone and the rash is essentially gone. She is eating well. She isn't sure about her weight because her scale hasn't been working. She is going to get a newscale and will let us know. In the last two days, she has felt occasional SOB. She wonders if the effusion is coming back. She says her BP has been perfect recently. She called in last week with c/o LE edema involving her knees. She has mild edema below the knees. She says that most of it is her upper legs. She was started on lasix, 20 mg per day. The swelling is quite a bit better. She can bend the right knee without difficulty. The left knee may be a little better but she still has significant swelling there. Her bowels are regular. Soc Hx: , lives in [place], [place] Tob - Never Etoh - rare [...] Neurological: Mental Status: She is alert. Labs: (01/06/22): WBC/ANC - 5.07/3599, Hgb/Hct - 10.8/32.2, Plts - 186,000. BUN/Cr - 13/0.63. Na - 133, Alb - 2.4, Mg - 1.7.. Lytes and LFTs [...] pembrolizumab. I spoke with Dr. Vega at [facility]. There were no clinical trials [...] also spoke with Dr. Shon Ramon at [facility]. He agreed that [...] talked specifically today about trying everolimus. We reviewed the potential side effects of therapy. She has received the medication and will go ahead and start that. Iwill check on her in two weeks. I provided care to the patient today via telephone call. The total time associated with this visit was 25 minutes. documented in this encounter Plan of Treatment Upcoming Encounters Date Type Department Care Team (Late st Contact Info) Description 02/24/2024 9:00 AM EDT Office Visit Hematology/Oncology at [address] [phone] Shon Schneider MD [facility] [place] [address] Ciara Pitts APRN [address] [place] [address] DR HEMATOLOGY AND ONCOLOGY [place], [place] [address] 02/24/2024 9:30 AM EDT Infusion Hematology Oncology at [address] [phone] 03/02/2024 11:00 AM EDT Office Visit Hematology/Oncology at [address] [phone] hSon Schneider MD [facility] [place] [address] HEMATOLOGY AND ONCOLOGY [place], [place] [id number] 03/02/2024 12:30 PM EDT Infusion Hematology Oncology at [address] [phone] 03/09/2024 10:00 AM EDT Office Visit Hematology/Oncology at [address] [phone] Shon Schneider MD [facility] [place] [address] HEMATOLOGY AND ONCOLOGY [place], [place] [phone] 03/09/2024 10:30 AM EDT Infusion Hematology Oncology at [address] [phone] documented as of this encounter Goals Goal Patient Goal Type Associated Problems Recent Progress Patient-Stated? Author DH Home Medication Compliance and Understanding Patient Facing Action Plan On track( 019 3:22 PM EST) Ivana Ashraf, [facility] Note: Remain 95% or better adherent to chemotherapy without severe side effects as assessed by days supply and patient reported adverse events at each refill documented as of this encounter Visit Diagnoses Diagnosis Thymic carcinoma Malignant neoplasm of thymus Normocytic anemia Anemia, unspecified Thymic carcinoma Malignant neoplasm of thymus documented in this encounter Care Teams Logging Crew Supervisor Relationship Specialty Start Date End Date Jerzy Vidal MD [address] [place] [address] [place] [address] PCP - [facility] Medicine 12/04/18 documented as of this encounter
--- OUTSIDE RECORDS SUMMARY | 2024-02-24 01:18 | XMS_ITS | Encounter Summary ---
Author Organization [facility] [place] [address] Care Team Providers Care Manpower Development Advisor Name Role Phone Jerzy Vidal MD Primary Care Provider [phone] Encounter Details Date Type Department Care Team (Latest Contact Info) Description 10/09/2021 1:00 PM EDT TH Visit (TeleHealth) Hematology/Oncology at [address] [phone] Shon Schneider MD [facility] [place] [address] Nadeen Srivastava, RN Thymic carcinoma; Hypothyroidism, acquired; Polycythemia Social History Tobacco Use Types Packs/Day Years Used Date Smoking Tobacco: Never Smokeless Tobacco: Never Sex and Gender Information Value Date Recorded Sex Assigned at Not on file Gender Identity Not on file Sexual Orientation Not on file documented as of this encounter Progress Notes * Shon Schneider MD - 10/09/2021 1:00 PM EDT Subjective: Patient ID: Monica [...] pleural effusion with compression atelectasis. transferred to [facility] for further evaluation and workup [...] B. Biopsy of mediastinal mass 03/29 Path ([facility] review) - Mediastinum, mass, biopsy: 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 [facility] - CONSULT SLIDES FROM [facility]; [place], [place]: A. MEDIASTINUM, MASS, BIOPSY ([id number]; 03/22/2017): ? 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 ?Immunohistochemistry performed at the outside institution and reviewed at [facility] demonstrates the following staining profile in lesional cells: ? Positive - AE1/AE3, p40, PAX8, CD117, CD5(multifocal), CK7(scattered cells), synaptophysin, chromogranin ? Negative - CK20, TTF-1, GATA3, CD34 ? The immunohistochemical profile supports the above diagnosis. ? Ki67 (MIB-1) proliferation index performed at the referring institution and reviewed at [facility] is focally up to ~30%. NOTE: While diffuse synaptophysin and chromogranin expression is unusual for conventional thymic carcinoma, the overall histomorphology and immunophenotype is most in keeping with THYMIC SQUAMOUS CARCINOMA.?The extent of PAX8 and CD117 staining would be unusual for Nut carcinoma. B. MEDIASTINUM, ANTERIOR, 4.5 CM, ULTRASOUND GUIDED FINED NEEDLE ASPIRATION ([id number]; 03/22/17): The cytologic preparations were not reviewed [...] Second opinion with Dr. Roddy Vega in [place]. They reviewed the pathology and concurred they [...] therapy with pembrolizumab L. CT c/a/p 11/06/19 ([facility] second read) - IMPRESSION 1. Worsening [...] atrial fibrillation 3. HTN 4. Echocardiogram 06/20/18 ([facility]) - Summary: 1. Preserved LV function [...] is a telephone encounter. She says she feeling well overall. She is tolerating the lenvatinib about the same. She has a rash on her arms intermittently. She uses a hydrocortisone cream and A andD ointment. The rash comes and goes. It is on her forearms mostly and lesser so on her thighs. She s ays she has not had any nausea or vomiting for about 6 weeks. She feels she is eating better. She says she has had a lot of emotional issues related to the of her (03/2021) and this contributed to a decrease in appetite as well as nausea and vomiting. But again, she is doing better now. She also takes two Ensure per day. Her weight today is 169#, down about 3# since August. She is sleeping better at night. Her knee still bothers her and limits her activity. She has a lot of supportand with that help, she is doing better. Her energy level and strength seem to be pretty good. She has diarrhea which comes and goes. This comes on for a few days, lasts for about 2 days and then gets better. It may be about 2 weeks before she has another episode. She takes immodium, 2 when the diarrhea starts, not more than 2 per day. She denies breathing difficulty. Soc Hx: , lives in [place], [place] Tob - Never Etoh - rare Works [...] Neurological: Mental Status: She is alert. Labs: (10/08/21): WBC/ANC - 6.10/3679, Hgb/Hct - 17/47.2, Plts - 194,000. BUN/Cr - 32/1.4. Na - 130, T bili - 1.6, alk phos - 148, Alb - [...] 06/19/21 55.03 07/14/21 35.55 1.09 EPO (2.6-18.5) 08/21/21 52.3 06/19/21 27.4 05/14/21 111 05/06/21 123 03/05/21 66.5 Hgb (12-16) 10/08/21 17 08/21/21 15.9 07/14/21 15.2 06/19/21 [...] spoke with Dr. Vega at [facility]. There were no clinical trials available there. [...] also spoke with Dr. Shon Ramon at [facility]. He agreed that gemcitabine plus [...] (Mag oxide). The TSH is a bit higher than it was in 09/01 but the FT4 is WNL She is on levothyroxine at 150 mcg/day and will continue that dose. I am going to have her hold the lenvatinib due to the increase in Hgb. I will schedule her for a f/u in the next 2-3 weeks with a restaging CT chest. She received her second covid vaccine shot on 09/26/20 I provided care to the patient today via telephone call. The total time associated with this visit was 30 minutes. documented in this encounter Plan of Treatment Upcoming Encounters Date Type Department Care Team (Late st Contact Info) Description 02/24/2024 9:00 AM EDT Office Visit Hematology/Oncology at [address] [phone] Shon Schneider MD [facility] [place] [address] [address] HEMATOLOGY AND ONCOLOGY [place], [place] [address] 02/24/2024 9:30 AM EDT Infusion Hematology Oncology at [address] [phone] 03/02/2024 11:00 AM EDT Office Visit Hematology/Oncology at [address] [phone] Shon Schneider MD [facility] [place] [address] Ciara Pitts [address] HEMATOLOGY [place] [address] 03/02/2024 12:30 PM EDT Infusion Hematology Oncology at [address] [phone] 03/09/2024 10:00 AM EDT Office Visit Hematology/Oncology at [address] [phone] Shon Schneider MD [facility] [place] [place] [address] Ciara Pitts APRN [address] [place] [address] DR HEMATOLOGY AND ONCOLOGY [place], [place] [address] 03/09/2024 10:30 AM EDT Infusion Hematology Oncology at [address] [phone] documented as of this encounter Goals Goal [...] neoplasm of thymus Hypothyroidism, acquired Unspecified hypothyroidism Polycythemia Polycythemia vera Thymic carcinoma Malignant neoplasm of thymus documented in this encounter Care Teams Manpower Development Advisor Relationship Specialty Start Date End Date Jerzy Vidal MD [address] [place] [address] [place] [address] PCP - General [facility] Medicine 12/04/18 documented as of this encounter
--- OUTSIDE RECORDS SUMMARY | 2024-02-24 01:18 | XMS_ITS | Encounter Summary ---
[place] [address] Care Team Providers Care Pressing Department Supervisor Name Role Phone Jerzy Vidal MD Primary Care Provider [phone] Reason for Visit * Reason Comments Prior Authorization Everolimus Encounter Details Date Type Department Care Team (Late st Contact Info) Description 12/30/2021 Specialty [place] [address] Juan Jose Chauhan, CEMENT MASON HELPER Social History Tobacco Use Types Packs/Day Years Used Date Smoking Tobacco: Never Smokeless Tobacco: Never Sex and Gender Information Value Date Recorded Sex Assigned at Not on file Gender Identity Not on file Sexual Orientation Not on file documented as of this encounter Progress Notes * Juan Jose Chauhan - 12/30/2021 3:45 PM EDT [facility], Medication Prior Authorization Submission Patient: Monica Jaramillo Patient : 1955 Patient Address: [address] [facility] [address] (home) Medication Name: EVEROLIMUS (ANTINEOPLASTIC) 10 MG TABLET Medication ID: [id number] Subscriber Insurance: [employer] (ADV) Subscriber Insurance Comment: Phone: [phone] Fax: Physician: SHON COATES Physician Comment: Sent Via: [facility] Laird: [id number] Ref/Case/PA#: Medication Strength Frequency Requested: Take 1 tablet by mouth daily Qty/Day Supply: New Start: New to Therapy Diagnosis & ICD-10 Code: C37 - Thymic carcinoma Patient Notified: No Submission Notes: None Juan Jose Chauhan 12/30/21 3:49 PM * Coral Marin - 12/30/2021 3:45 PM EDT [facility], Prior Authorization Approval Medication Name: EVEROLIMUS (ANTINEOPLASTIC) 10 MG TABLET Medication ID: [id number] Approval Dates: 12/30/2021 to 12/30/2022 Insurance requirements/notes: None Other Notes: None Case/Reference #: [id number] Approval notification Received via: Fax Copay: $2,[phone] Copay assistance: Other (Enter Comment) Copay Notes: No open grants at this time, script can be sent to [employer] for internal copay assistance Insurance mandated Pharmacy: [facility] Fillable at [facility]: Yes Pharmacy staff will be reaching out to the patient to inform them of their [facility]. If applicable, a pharmacist will speak with the patient to offer our specialty pharmacy services and to arrange delivery of their medication. Coral Marin 12/31/21 9:22 AM documented in this encounter Plan of Treatment Upcoming Encounters Date Type Department Care Team (Late st Contact Info) Description 02/24/2024 9:00 AM EDT Office Visit Hematology/Oncology at [address] [phone] Shon Coates MD [facility] [place] [address] HEMATOLOGY AND ONCOLOGY [place], [place] [address] 02/24/2024 9:30 AM EDT Infusion Hematology Oncology at [address] [phone] 03/02/2024 11:00 AM EDT Office Visit Hematology/Oncology at [address] [phone] Shon Coates MD [facility] [place] [address] HEMATOLOGY AND ONCOLOGY [place], [place] [address] 03/02/2024 12:30 PM EDT Infusion Hematology Oncology at [address] [phone] 03/09/2024 10:00 AM EDT Office Visit Hematology/Oncology at [address] [phone] Shon Coates MD [facility] [place] [address] [address] [place] [address] 03/09/2024 10:30 AM EDT Infusion Hematology Oncology at [address] [phone] documented as of this encounter Goals Goal [...] on filedocumented in this encounter Care Teams Pressing Department Supervisor Relationship Specialty Start Date End Date Jerzy Vidal MD [address] [place] [address] [place] [address] PCP - [facility] Medicine 12/04/18 documented as of this encounter
--- OUTSIDE RECORDS SUMMARY | 2024-02-24 01:18 | XMS_ITS | Encounter Summary ---
Author Organization [facility] Address [facility] [place] [address] Care Team Providers Care Inspector Cold Working Name Role Phone Jerzy Vidal MD Primary Care Provider [phone] Reason for Visit * Reason Onset Date Comments Leg Swelling 01/08/2022 Edema around kne es Encounter Details Date Type Department Care Team (Late st Contact Info) Description 01/08/2022 Telephone Hematology/Oncology at [address] [phone] Lashawn Skelton, RN Leg Swelling (Edema around knees) Social History Tobacco Use Types Packs/Day Years Used Date Smoking Tobacco: Never Smokeless Tobacco: Never Sex and Gender Information Value Date Recorded Sex Assigned at Not on file Gender Identity Not on file Sexual Orientation Not on file documented as of this encounter Miscellaneous Notes * Telephone Encounter - Lashawn Skelton RN - 01/08/2022 3:22 PM EDT Monica called in to report has been having edema around her knees extending down her calves but not any in her ankles. It is mainly on the sides and back of her knee area. Enough to be uncomfortable with movement. It started in her L knee but is now in her right as well, denies redness or warmth. Has tried elevation with no effect. One spot on L is a little weepy but not enough to make her pants wet. Monica is very worried it will get worse and wants to stay ahead of it. Discussed with Dr. Schneider. Recommended trying juan bandages so help compress swollen knee areas. Taking a antiinflammatory medication like ibuprofen or aleve OTC as directed. Dr. Schneider also agreed that she could try 20mg of lasix a day. Script sent to Moise Anderson is in agreement with plan and I encouraged her to call back with worsening symptoms or concerns otherwise she will have a telephone FUV with Dr. Schneider 01/12. documented in this encounter Plan of Treatment Upcoming Encounters Date Type Department Care Team (Late st Contact Info) Description 02/24/2024 9:00 AM EDT Office Visit Hematology/Oncology at [address] [phone] Shon Schneider MD [facility] [place] [address] Ciara Pitts [address] [place] [address] 02/24/2024 9:30 AM EDT Infusion Hematology Oncology at [address] [phone] 03/02/2024 11:00 AM EDT Office Visit Hematology/Oncology at [address] [phone] Shon Schneider MD [facility] [place] [address] Ciara Pitts [address] [place] [address] 03/02/2024 12:30 PM EDT Infusion Hematology Oncology at [address] [phone] 03/09/2024 10:00 AM EDT Office Visit Hematology/Oncology at [address] [phone] Shon Schneider MD [facility] [place] [address] Ciara Pitts APRN [address] [place] [address] DR [place] [address] 03/09/2024 10:30 AM EDT Infusion Hematology Oncology at [address] [phone] documented as of this encounter Goals Goal Patient Goal Type Associated Problems Recent Progress Patient-Stated? Author DH Home Medication Compliance and Understanding Patient Facing Action Plan On track( 019 3:22 PM EST) No Ivana Vanegas, [facility] Note: Remain 95% or better adherent to chemotherapy without severe side effects as assessed by days supply and patient reported adverse events at each refill documented as of this encounter Visit Diagnoses Not on filedocumented in this encounter Care Teams Inspector Cold Working Relationship Specialty Start Date End Date Jerzy Vidal MD [address] [place] [address] [place] [address] PCP - [facility] Medicine 12/04/18 documented as of this encounter
--- OUTSIDE RECORDS SUMMARY | 2024-02-24 01:18 | XMS_ITS | Encounter Summary ---
Author Organization [facility] [place] [address] Care Team Providers Care Furnace Operator Name Role Phone Jerzy Vidal MD Primary Care Provider [phone] Encounter Details Date Type Department Care Team (Late st Contact Info) Description 10/28/2021 Telephone Hematology Oncology at [address] [phone] Roxana Machuca RN Social History Tobacco Use Types Packs/Day Years Used Date Smoking Tobacco: Never Smokeless Tobacco: Never Sex and Gender Information Value Date Recorded Sex Assigned at Not on file Gender Identity Not on file Sexual Orientation Not on file documented as of this encounter Miscellaneous Notes * Telephone Encounter - Roaxna Machuca RN - 10/28/2021 3:41 PM EDT ----- Message ----- From: Princess Barros Sent: 10/28/2021 11:39 AM EDT To: Shon Schneider MD, [facility] On[facility] Nurse Subject: Off Merna Anderson and I touched base today about her next appt. She's scheduled for a scan next week and will meet with you via TOV the following Tuesday to review. She wanted to me touch base with you because the original plan was to get her in for a 3WK FUV but with the scan date it will be closer to 5. She wants to know if she should go back on the lenvatinib (Lenvima) 14 mg/day(10 mg x 1-4 mg x 1) capsule [[id number]] in the meantime. She's been off it for two full weeks and said she is a little worried about being off of it for a month. She's wondering if she can plan to go back on it until 11/10 starting this Tuesday. What would you like her to do? ----- Message ----- From: Shon Schneider MD Sent: 10/28/2021 12:35 PM EDT To: Princess Barros Subject: RE: Off Lenvima I guess that is ok. ----- Message from Princess Barros sent at 10/28/2021 3:40 PM EDT ----- Regarding: RE: Off Lenvima Called patient and she said she will plan to start taking it again on Tuesday documented in this encounter Plan of Treatment Upcoming Encounters Date Type Department Care Team (Late st Contact Info) Description 02/24/2024 9:00 AM EDT Office Visit Hematology/Oncology at [address] [phone] Shon Schneider MD [facility] [place] [address] Ciara Pitts APRN [address] [place] [address] DR HEMATOLOGY AND ONCOLOGY [place], [place] [address] 02/24/2024 9:30 AM EDT Infusion Hematology Oncology at [address] [phone] 03/02/2024 11:00 AM EDT Office Visit Hematology/Oncology at [address] [phone] Shon Schneider MD [facility] [place] [address] [address] HEMATOLOGY AND ONCOLOGY [place], [place] [address] 03/02/2024 12:30 PM EDT Infusion Hematology Oncology at [address] [phone] 03/09/2024 10:00 AM EDT Office Visit Hematology/Oncology at [address] [phone] Shon Schneider MD [facility] [place] [address] [address] HEMATOLOGY AND ONCOLOGY [place], [place] [phone] 03/09/2024 10:30 AM EDT Infusion Hematology Oncology at [address] [phone] documented as of this encounter Goals Goal Patient Goal Type Associated Problems Recent Progress Patient-Stated? Author DH Home Medication Compliance and Understanding Patient Facing Action Plan On track( 019 3:22 PM EST) Ivana Ashraf, [facility] Note: Remain 95% or better adherent to chemotherapy without severe side effects as assessed by days supply and patient reported adverse events at each refill documented as of this encounter Visit Diagnoses Not on filedocumented in this encounter Care Teams Furnace Operator Relationship Specialty Start Date End Date Jerzy Vidal MD [address] [place] [address] [place] [address] PCP - General [facility] Medicine 12/04/18 documented as of this encounter
--- OUTSIDE RECORDS SUMMARY | 2024-02-24 01:18 | XMS_ITS | Encounter Summary ---
Author Organization [facility] [place] [address] Care Team Providers Care Carbon Grinder Name Role Phone Jerzy Vidal MD Primary Care Provider [phone] Encounter Details Date Type Department Care Team (Late Contact Info) Description 04/05/2022 Ancillary Procedure [place] [address] Shon Schneider MD [facility] [place] [address] Social History Tobacco Use Types Packs/Day Years [...] AM EDT Office Visit Hematology/Oncology at [address] [phone] Shon Schneider MD [facility] [place] [address] Ciara Pitts APRN [address] [place] [address] DR [place] [address] 02/24/2024 9:30 AM EDT Infusion Hematology Oncology at [address] [phone] 03/02/2024 11:00 AM EDT Office Visit Hematology/Oncology at [address] [phone] Shon Schneider MD [facility] [place] [address] [address] HEMATOLOGY AND ONCOLOGY [place], [place] [address] [phone] 03/02/2024 12:30 PM EDT Infusion Hematology Oncology at [address] [phone] 03/09/2024 10:00 AM EDT Office Visit Hematology/Oncology at [address] [phone] Shon Schneider MD [facility] [place] [address] [address] HEMATOLOGY AND ONCOLOGY [place], [place] [address] 03/09/2024 10:30 AM EDT Infusion Hematology Oncology at [address] [phone] documented as of this encounter Goals Goal [...] STORAGE ONLY CT CHEST ABDOMEN PELVIS Routine 04/05/2022 12:00 AM EDT documented in this encounter Results * Film Library- Storage Only CT Chest Abdomen Pelvis (04/05/2022 12:00 AM EDT) Narrative [facility] - 04/06/2022 4:10 AM EDT This exam is auto-finalizing. It's purpose is for storage only. Shon Schneider MD IMG FILM LIBRARY ORD ERABLES Performing Organization Address City/State/[facility] Co de Phone Number [place], [place] documented in this encounter Visit Diagnoses Not on filedocumented in this encounter Care Teams Carbon Grinder Relationship Specialty Start Date End Date Jerzy Vidal MD [address] [place] [address] [place] [address] [address] - [facility] Medicine 12/04/18 documented as of this encounter
--- OUTSIDE RECORDS SUMMARY | 2024-02-24 01:18 | XMS_ITS | Encounter Summary ---
Author Organization [facility] [place] [address] Care Team Providers Care Cage Tender Name Role Phone Jerzy Vidal MD Primary Care Provider [phone] Encounter Details Date Type Department Care Team (Late st Contact Info) Description 01/08/2022 Orders Only H[place]ology [place] [address] Shon Schneider MD [facility] [place] [address] Edema of lower extremity Social History Tobacco [...] AM EDT Office Visit Hematology/Oncology at [address] [phone] Shon Schneider MD [facility] [place] [address] Ciara Pitts APRN [address] [place] [address] DR HEMATOLOGY [place] [address] 02/24/2024 9:30 AM EDT Infusion Hematology Oncology at [address] [phone] 03/02/2024 11:00 AM EDT Office Visit Hematology/Oncology at [address] [phone] Shon Schneider MD [facility] [place] [address] HEMATOLOGY AND ONCOLOGY [place], [place] [address] 03/02/2024 12:30 PM EDT Infusion Hematology Oncology at [address] [phone] 03/09/2024 10:00 AM EDT Office Visit Hematology/Oncology at [address] [phone] Shon Schneider MD [facility] [place] [address] HEMATOLOGY [place] [address] 03/09/2024 10:30 AM EDT Infusion Hematology Oncology at [address] [phone] documented as of this encounter Goals Goal Patient Goal Type Associated Problems Recent Progress Patient-Stated? Author DH Home Medication Compliance and Understanding Patient Facing Action Plan On track( 019 3:22 PM EST) Ivana Ashraf, [facility] Note: Remain 95% or better adherent to chemotherapy without severe side effects as assessed by days supply and patient reported adverse events at each refill documented as of this encounter Visit Diagnoses Diagnosis Edema of lower extremity Edema Thymic carcinoma Malignant neoplasm of thymus documented in this encounter Care Teams Cage Tender Relationship Specialty Start Date End Date Jerzy Vidal MD [address] [place] [address] [place] [address] PCP - [facility] Medicine 12/04/18 documented as of this encounter
--- OUTSIDE RECORDS SUMMARY | 2024-02-24 01:18 | XMS_ITS | Encounter Summary ---
Author Organization [facility] [place] [address] Care Team Providers Care Fountain Roller Assembler Name Role Phone Jerzy Vidal MD Primary Care Provider [phone] Encounter Details Date Type Department Care Team (Latest Contact Info) Description 12/29/2021 1:30 PM EDT TH Visit (TeleHealth) Hematology/Oncology at [address] [phone] Shon Schneider MD [facility] [place] [address] Thymic carcinoma; Hypothyroidism, acquired Social History Tobacco Use Types Packs/Day Years Used Date Smoking Tobacco: Never Smokeless Tobacco: Never Sex and Gender Information Value Date Recorded Sex Assigned at Not on file Gender Identity Not on file Sexual Orientation Not on file documented as of this encounter Progress Notes * Shon Schneider MD - 12/29/2021 1:30 PM EDT Subjective: Patient ID: Monica [...] pleural effusion with compression atelectasis. transferred to [facility] for further evaluation and workup [...] B. Biopsy of mediastinal mass 03/29 Path ([facility] review) - Mediastinum, mass, biopsy: 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 [facility] - CONSULT SLIDES FROM [facility]; [place], [place]: A. MEDIASTINUM, MASS, BIOPSY ([id number]; 03/22/2017): ? 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 ?Immunohistochemistry performed at the outside institution and reviewed at [facility] demonstrates the following staining profile in lesional cells: ? Positive - AE1/AE3, p40, PAX8, CD117, CD5(multifocal), CK7(scattered cells), synaptophysin, chromogranin ? Negative - CK20, TTF-1, GATA3, CD34 ? The immunohistochemical profile supports the above diagnosis. ? Ki67 (MIB-1) proliferation index performed at the referring institution and reviewed at [facility] is focally up to ~30%. NOTE: While diffuse synaptophysin and chromogranin expression is unusual for conventional thymic carcinoma, the overall histomorphology and immunophenotype is most in keeping with THYMIC SQUAMOUS CARCINOMA.?The extent of PAX8 and CD117 staining would be unusual for Nut carcinoma. B. MEDIASTINUM, ANTERIOR, 4.5 CM, ULTRASOUND GUIDED FINED NEEDLE ASPIRATION ([id number]; 03/22/17): The cytologic preparations were not reviewed [...] Second opinion with Dr. Roddy Vega in [place]. They reviewed the pathology and concurred they [...] therapy with pembrolizumab L. CT c/a/p 11/06/19 ([facility] second read) - [...] atrial fibrillation 3. HTN 4. Echocardiogram 06/20/18 ([facility]) - Summary: 1. Preserved LV function [...] telephone encounter. I had seen Monica in [facility] on . At that time she had a a signifcant rash. I had her stop the lenvatinib and started her on prednisone. She took the prednisone for about 8 days and is now off of that. The pruritis is gone. The rash has improved. She says the lesionsand she is peeling. she has started to eat more and has gained weight. Her breathing is good, no SOB . She notes that her BP has gone up since being off the metoprolol. She is going to contact Dr. Vidal about this. Soc Hx: , lives in [place], [place] Tob - Never Etoh - rare [...] Neurological: Mental Status: She is alert. Labs: (12/25/21): WBC/ANC - 6., Hgb/Hct - 13.3/39.3, Plts - 186,000. BUN/Cr - 93/0.77. Alb - 2.6, Mg - 1.5. Lytes and LFTs o/w unremarkable. (12/11/21): [...] pembrolizumab. I spoke with Dr. Vega at [facility]. There were no clinical trials [...] also spoke with Dr. Shon Ramon at [facility] [place]. He agreed that gemcitabine plus capecitabine is [...] reviewed the potential side effects of therapy. I provided care to the patient today via telephone call. The total time associated with this visit was 25 minutes. documented in this encounter Plan of Treatment Upcoming Encounters Date Type Department Care Team (Late st Contact Info) Description 02/24/2024 9:00 AM EDT Office Visit Hematology/Oncology at [address] [phone] Shon Schneider MD [facility] [place] [address] Ciara Pitts [address] [place] [address] 02/24/2024 9:30 AM EDT Infusion Hematology Oncology at [address] [phone] 03/02/2024 11:00 AM EDT Office Visit Hematology/Oncology at [address] [phone] Shon Schneider MD [facility] [place] [place] [address] Ciara Pitts [address] [place] [address] 03/02/2024 12:30 PM EDT Infusion Hematology Oncology at [address] [phone] 03/09/2024 10:00 AM EDT Office Visit Hematology/Oncology at [address] [phone] Shon Schneider MD [facility] [place] [address] Ciara Pitts APRN [address] [place] [address] DR HEMATOLOGY AND ONCOLOGY [place], [place] [id number] 03/09/2024 10:30 AM EDT Infusion Hematology Oncology at [address] [phone] documented as of this [...] thymus documented in this encounter Care Teams Fountain Roller Assembler Relationship Specialty Start Date End Date Jerzy Vidal MD [address] [place] [address] [place] [address] PCP - [facility] Medicine 12/04/18 documented as of this encounter
--- OUTSIDE RECORDS SUMMARY | 2024-02-24 01:18 | XMS_ITS | Encounter Summary ---
Author Organization [facility] Address [facility] [place] [address] Care Team Providers Care Booth Manager Name Role Phone Jerzy Vidal MD Primary Care Provider [phone] Encounter Details Date Type Department Care Team (Late st Contact Info) Description 12/18/2021 1:00 PM EDT Office Visit Hematology/Oncology at [address] [phone] Shon Schneider MD [facility] [place] [address] Thymic carcinoma; Skin rash Social History Tobacco Use Types Packs/Day Years Used Date Smoking Tobacco: Never Smokeless Tobacco: Never Sex and Gender Information Value Date Recorded Sex Assigned at Not on file Gender Identity Not on file Sexual Orientation Not on file documented as of this encounter Last Filed Vital Signs Vital Sign Reading Time Taken Comments Blood Pressure 140/89 12/18/2021 1:01 PM EDT Pulse 76 12/18/2021 1:01 PM EDT Temperature 36.3 ??C (97.3 ??F) 12/18/2021 1:01 PM ED T Respiratory Rate 18 12/18/2021 1:01 PM EDT Oxygen Saturation 100% 12/18/2021 1:01 PM EDT Inhaled Oxygen Concentration - - Weight 81.6 kg (180 lb) 12/18/2021 1:01 PM EDT Height 175.3 cm (5' 9.02) 12/18/2021 1:01 PM ED T Body Mass Index 26.57 12/18/2021 1:01 PM EDT documented in this encounter Progress Notes * Shon Schneider MD - 12/18/2021 1:00 PM EDT Subjective: Patient ID: Monica [...] pleural effusion with compression atelectasis. transferred to [facility] for further evaluation and workup and [...] B. Biopsy of mediastinal mass 03/29 Path ([facility] review) - Mediastinum, mass, biopsy: 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 [facility] - CONSULT SLIDES FROM [facility]; [place], [place]: A. MEDIASTINUM, MASS, BIOPSY ([id number]; 03/22/2017): ? MALIGNANT THYMIC EPITHELIAL NEOPLASM consistent [...] 4.5 CM, ULTRASOUND GUIDED FINED NEEDLE ASPIRATION ([id number]; 03/22/17): The cytologic preparations were not reviewed [...] Second opinion with Dr. Roddy Vega in [place]. They reviewed the pathology and concurred they [...] therapy with pembrolizumab L. CT c/a/p 11/06/19 ([facility] second read) - IMPRESSION [...] atrial fibrillation 3. HTN 4. Echocardiogram 06/20/18 ([facility]) - Summary: 1. Preserved LV function [...] is accompanied to clinic today by her daughter. She has a significant rash on her neck, arms and chest. It is pruritic. It is pale is the center and red around the edges. They tell me that she has had the rash for months which comes and goes but it is worse now. She says it has exploded in the last couple of weeks. It has been at the current level for about a week and has not worsened. She saw her PCP last week who suggested trying topical steroids. There is no mucosal involvement. The SOB that she had is gone. She otherwise feels well. Her appetite is down but this has been a hard time for her. Soc Hx: , lives in [place], [place] Tob - Never Etoh - rare [...] She is not in acute distress. Appearance: Normal appearance. HENT: Head: Normocephalic and atraumatic. Mouth/Throat: Pharynx: Oropharynx is clear. No oropharyngeal exudate. Eyes: General: No scleral icterus. Cardiovascular: Rate and Rhythm: Normal rate. Pulmonary: Effort: Pulmonary effort is normal. No respiratory distress. Abdominal: General: There is no distension. Musculoskeletal: General: Swelling present. Skin: Findings: Rash present. Comments: Erythematous rash on arms, back, chest, LE, neck. There are erythematous broders and central pallor. Neurological: Mental Status: She is alert. Labs: [...] also spoke with Dr. Shon Ramon at [facility] [place]. He agreed that gemcitabine plus capecitabine is [...] and showed marked improvement in the effusions. She has a significant rash which has the appearance of erythema multiforme. This is most likely related to the lenvantinib. I am going to have her stop this and start a prednisone burst. I will f/u with her next week. documented in this encounter Plan of Treatment Upcoming Encounters Date Type Department Care Team (Late st Contact Info) Description 02/24/2024 9:00 AM EDT Office Visit Hematology/Oncology at [address] [phone] Shon Schneider MD [facility] [place] [address] Ciara Pitts APRN [address] [place] [address] [place] [address] 02/24/2024 9:30 AM EDT Infusion Hematology Oncology at [address] [phone] 03/02/2024 11:00 AM EDT Office Visit Hematology/Oncology at [address] [phone] Shon Schneider MD [facility] [place] [address] [address] [place] [address] 03/02/2024 12:30 PM EDT Infusion Hematology Oncology at [address] [phone] 03/09/2024 10:00 AM EDT Office Visit Hematology/Oncology at [address] [phone] Shon Schneider MD [facility] [address] HEMATOLOGY AND ONCOLOGY [place], [place] [address] 03/09/2024 10:30 AM EDT Infusion Hematology Oncology at [address] [phone] documented as of this encounter Goals Goal Patient Goal Type Associated Problems Recent Progress Patient-Stated? Author DH Home Medication Compliance and Understanding Patient Facing Action Plan On track( 019 3:22 PM EST) Ivana Ashraf, [facility] Note: Remain 95% or better adherent to chemotherapy without severe side effects as assessed by days supply and patient reported adverse events at each refill documented as of this encounter Visit Diagnoses Diagnosis Thymic carcinoma Malignant neoplasm of thymus Skin rash Rash and other nonspecific skin eruption Thymic carcinoma Malignant neoplasm of thymus documented in this encounter Care Teams Booth Manager Relationship Specialty Start Date End Date Jerzy Vidal MD [address] [place] [address] [place] [address] PCP - [facility] Medicine 12/04/18 documented as of this encounter
--- OUTSIDE RECORDS SUMMARY | 2024-02-24 01:18 | XMS_ITS | Encounter Summary ---
Author Organization [facility] Address [facility] [place] [address] Care Team Providers Care Cot Assembler Name Role Phone Jerzy Vidal MD Primary Care Provider [phone] Encounter Details Date Type Department Care Team (Late st Contact Info) Description 01/29/2022 12:00 PM EDT Office Visit Hematology/Oncology at [address] [phone] [facility] [place] [address] Thymic carcinoma; Bilateral leg edema; Elevated brain natriuretic peptide (BNP) level; Congestive heart failure, unspecified HF chronicity, unspecified [...] Sign Reading Time Taken Comments Blood Pressure 125/71 01/29/2022 12:06 PM EDT Pulse 67 01/29/2022 12:06 PM EDT Temperature 36.4 ??C (97.5 ??F) 01/29/2022 1 2:06 PM EDT Respiratory Rate 18 01/29/2022 12:0 6 PM EDT Oxygen Saturation 93% 01/29/2022 12: 06 PM EDT Inhaled Oxygen Concentration - - Weight 102.8 kg (226 lb 9.6 oz) 022 12:06 PM EDT Height 175.3 cm (5' 9) 01/29/2022 12:0 6 PM EDT Body Mass Index 33.46 01/29/2022 12:06 PM EDT documented in this encounter Progress Notes * Shon Schneider MD - 01/29/2022 12:00 PM EDT Subjective: Patient ID: Monica Jaramillo [...] pleural effusion with compression atelectasis. transferred to [facility] for further evaluation and workup [...] B. 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 [facility] - CONSULT SLIDES FROM [facility]; [place], [place]: A. MEDIASTINUM, MASS, BIOPSY ([id number]; 03/22/2017): ? MALIGNANT THYMIC EPITHELIAL NEOPLASM consistent [...] 4.5 CM, ULTRASOUND GUIDED FINED NEEDLE ASPIRATION ([id number]; 03/22/17): The cytologic preparations were not reviewed [...] Second opinion with Dr. Roddy Vega in [place]. They reviewed the pathology and concurred they [...] therapy with pembrolizumab L. CT c/a/p 11/06/19 ([facility] second read) - IMPRESSION 1. [...] atrial fibrillation 3. HTN 4. Echocardiogram 06/20/18 ([facility]) - Summary: 1. Preserved LV [...] is accompanied to clinic today by her daughter, Cass. She is feeling fairly well. This is a telehealth encounter. On 01/12/22, [...] feeling pretty well overall. Her breathing is pretty good, not 100% . She is in a wheelchair in clinic today but is ambulatory at home. Her legs are swollen, about the same. She is taking lasix, 40 mg per day. She does respond to this but it is short lived. She is eating well. No nausea, no stomatitis. Her bowels are regular. The LE edemabegan after she started the everolimus. Soc Hx: , lives in [place], [place] Tob - Never Etoh - rare [...] alert. Psychiatric: Mood and Affect: Mood normal. Labs:(01/27/22): WBC/ANC - 2.08/1333. Hgb/Hct - 10.8/33.3, Plts - 96,000. BUN/Cr - 19/0.87. Na - 133,alb - 2.7, Mg - 1.9. Lytes and [...] also spoke with Dr. Shon Ramon at [facility] [place]. He agreed that gemcitabine plus capecitabine is [...] may be a side effect of the everolimus. The leukopenia and thrombocytopenia are also likely secondary to the everolimus. She is taking 5 mg per day. I will have increase the lasix to 40 mg bid. She will continue the everolimus for now. I will try to arrange for another echo and see her afterward. She will continue the everolimus and I will see her next week and recheck labs. She would like to include a repeat proBNP and she will f/u with Dr. Vidal as well. documented in this encounter Plan of Treatment Upcoming Encounters Date Type Department Care Team (Late st Contact Info) Description 02/24/2024 9:00 AM EDT Office Visit Hematology/Oncology at [address] [phone] [facility] [address] HEMATOLOGY AND ONCOLOGY [place], [place] [address] [phone] 02/24/2024 9:30 AM EDT Infusion Hematology Oncology at [address] [phone] 03/02/2024 11:00 AM EDT Office Visit Hematology/Oncology at [address] [phone] [facility] [place] [address] [address] HEMATOLOGY AND ONCOLOGY [place], [place] [address] 03/02/2024 12:30 PM EDT Infusion Hematology Oncology at [address] [phone] 03/09/2024 10:00 AM EDT Office Visit Hematology/Oncology at [address] [phone] [facility] [place] [address] Ciara Pitts [address] HEMATOLOGY AND ONCOLOGY [place], [place] [address] [phone] 03/09/2024 10:30 AM EDT Infusion Hematology Oncology at [address] [phone] documented as of this encounter Goals Goal [...] neoplasm of thymus Bilateral leg edema Edema Elevated brain natriuretic peptide (BNP) level Other nonspecific findings on examination of blood Congestive heart failure, unspecified HF chronicity, unspecified heart failure type Thymic carcinoma Malignant neoplasm of thymus documented in this encounter Care Teams Cot Assembler Relationship Specialty Start Date End Date Jerzy Vidal MD [address] [place] [address] [place] [address] PCP - [facility] Medicine 12/04/18 documented as of this encounter
--- OUTSIDE RECORDS SUMMARY | 2024-02-24 01:18 | XMS_ITS | Encounter Summary ---
Author Organization [facility] Address [facility] [place] [address] Care Team Providers Care Silk Folder Name Role Phone Jerzy Vidal MD Primary Care Provider [phone] Encounter Details Date Type Department Care Team (Late st Contact Info) Description 04/29/2022 12:30 PM EST TH Visit (TeleHealth) [place]ology [place] [address] Shon Schneider MD [facility] [place] [address] Thymic carcinoma; Hypomagnesemia Social History Tobacco Use Types Packs/Day Years Used Date Smoking Tobacco: Never Smokeless Tobacco: Never Sex and Gender Information Value Date Recorded Sex Assigned at Not on file Gender Identity Not on file Sexual Orientation Not on file documented as of this encounter Progress Notes * Shon Schneider MD - 04/29/2022 12:30 PM EST Subjective: Patient ID: Monica Jaramillo [...] B. 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 [facility] - CONSULT SLIDES FROM [facility]; [place], [place]: A. MEDIASTINUM, MASS, BIOPSY ([id number]; 03/22/2017): ? 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 ?Immunohistochemistry performed at the outside institution and reviewed at [facility] demonstrates the following staining profile in lesional cells: ? Positive - AE1/AE3, p40, PAX8, CD117, CD5(multifocal), CK7(scattered cells), synaptophysin, chromogranin ? Negative - CK20, TTF-1, GATA3, CD34 ? The immunohistochemical profile supports the above diagnosis. ? Ki67 (MIB-1) proliferation index performed at the referring institution and reviewed at [facility] is focally up to ~30%. NOTE: While diffuse synaptophysin and chromogranin expression is unusual for conventional thymic carcinoma, the overall histomorphology and immunophenotype is most in keeping with THYMIC SQUAMOUS CARCINOMA.?The extent of PAX8 and CD117 staining would be unusual for Nut carcinoma. B. MEDIASTINUM, ANTERIOR, 4.5 CM, ULTRASOUND GUIDED FINED NEEDLE ASPIRATION ([id number]; 03/22/17): The cytologic preparations were not reviewed [...] Second opinion with Dr. Roddy Vega in [place]. They reviewed the pathology and concurred [...] therapy with pembrolizumab L. CT c/a/p 11/06/19 ([facility] second read) - IMPRESSION [...] atrial fibrillation 3. HTN 4. Echocardiogram 06/20/18 ([facility]) - Summary: 1. Preserved LV [...] Today's visit is a TeleHealth encounter. She may be doing a little better. She thinks in the past week, she is starting to notice some reduction in her weight. Her LE don't seem as hard as they were.There is still edema but it is softer. Her breathing is stable, non labored. She is now taking 80 mg of lasix once a day and thinks she is having more output with this. She is taking paxil and she feels that is helping also. She is eating well. She does not add salt. Her bowels are regular. She took her vitals at home today - Weight is a little lower at 236# (238#), O2 - 95-96%, BP - 120/68, HR - 76 Soc Hx: , lives in [place], [place] Tob - Never Etoh - rare [...] alert. Psychiatric: Mood and Affect: Mood normal. Labs:(04/27/22): WBC/ANC - 5.09/4399, Hgb/Hct - 10.8/35.6, Plts [...] unremarkable. TSH - 12.128, FT4 - 1.32 (5/26/22): WBC/ANC - 4.02/3400, HGB/Hct - 11.9/35.8, Plts [...] pembrolizumab. I spoke with Dr. Vega at [facility]. There were no clinical trials available [...] also spoke with Dr. Shon Ramon at [facility] [place]. He agreed that gemcitabine plus capecitabine is [...] says the LE edema is slowly improving. I will have her continue the same dose of lasix and will plan another TeleHealth visit in two weeks. The everolimus has been on hold since [...] decide to restart therapy, would consider pemetrexed. documented in this encounter Plan of Treatment Upcoming Encounters Date Type Department Care Team (Late st Contact Info) Description 02/24/2024 9:00 AM EDT Office Visit Hematology/Oncology at [address] [phone] Shon Schneider MD [facility] [place] [address] [address] HEMATOLOGY AND ONCOLOGY [place], [place] [address] 02/24/2024 9:30 AM EDT Infusion Hematology Oncology at [address] [phone] 03/02/2024 11:00 AM EDT Office Visit Hematology/Oncology at [address] [phone] Shon Schneider MD [facility] [place] [address] Ciara Pitts, [address] HEMATOLOGY [place] [address] 03/02/2024 12:30 PM EDT Infusion Hematology Oncology at [address] [phone] 03/09/2024 10:00 AM EDT Office Visit Hematology/Oncology at [address] [phone] Shon Schneider MD [facility] [place] [address] Ciara Pitts APRN [address] [place] [address] DR HEMATOLOGY AND ONCOLOGY [place], [place] [address] 03/09/2024 10:30 AM EDT Infusion Hematology Oncology at [address] [phone] documented as of this encounter Goals Goal [...] thymus documented in this encounter Care Teams Silk Folder Relationship Specialty Start Date End Date Jerzy Vidal MD [address] [place] [address] [place] [address] PCP - [facility] Medicine 12/04/18 documented as of this encounter
--- OUTSIDE RECORDS SUMMARY | 2024-02-24 01:18 | XMS_ITS | Encounter Summary ---
Author Organization Formerly [facility] Address [facility] [place] [address] Care Team Providers Care Direct Service Worker Name Role Phone Jerzy Vidal MD Primary Care Provider [phone] Encounter Details Date Type Department Care Team (Late st Contact Info) Description 03/12/2022 2:00 PM EDT Office Visit Hematology/Oncology at [address] [phone] Shon Schneider MD [facility] [place] [address] Nadeen Srivastava, RN Thymic carcinoma; Other insomnia; Bilateral leg edema; Hypomagnesemia Social History Tobacco Use Types Packs/Day Years Used Date Smoking Tobacco: Never Smokeless Tobacco: Never Sex and Gender Information Value Date Recorded Sex Assigned at Not on file Gender Identity Not on file Sexual Orientation Not on file documented as of this encounter Last Filed Vital Signs Vital Sign Reading Time Taken Comments Blood Pressure 119/63 03/12/2022 1:54 PM EDT Pulse 75 03/12/2022 1:54 PM EDT Temperature 36.5 ??C (97.7 ??F) 03/12/2022 1:54 PM ED T Respiratory Rate 18 03/12/2022 1:54 PM EDT Oxygen Saturation 100% 03/12/2022 1:54 PM EDT Inhaled Oxygen Concentration - - Weight 104.3 kg (230 lb) 03/12/2022 1:54 PM EDT Height 175.3 cm (5' 9) 03/12/2022 1:54 PM EDT Body Mass Index 33.97 03/12/2022 1:54 PM EDT documented in this encounter Progress Notes * Nadeen Srivastava, BOOKMOBILE DRIVER - 03/12/2022 2:00 PM EDT Subjective: Patient ID: Monica [...] pleural effusion with compression atelectasis. transferred to [facility] for further evaluation and workup and [...] B. Biopsy of mediastinal mass 03/29 Path ([facility] [place] [place] review) - Mediastinum, mass, biopsy: 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 [facility] - CONSULT SLIDES FROM ; [place], [place]: A. MEDIASTINUM, MASS, BIOPSY ([id number]; 03/22/2017): ? 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 ?Immunohistochemistry performed at the outside institution and reviewed at [facility] demonstrates the following staining profile in lesional cells: ? Positive - AE1/AE3, p40, PAX8, CD117, CD5(multifocal), CK7(scattered cells), synaptophysin, chromogranin ? Negative - CK20, TTF-1, GATA3, CD34 ? The immunohistochemical profile supports the above diagnosis. ? Ki67 (MIB-1) proliferation index performed at the referring institution and reviewed at [facility] is focally up to ~30%. NOTE: While diffuse synaptophysin and chromogranin expression is unusual for conventional thymic carcinoma, the overall histomorphology and immunophenotype is most in keeping with THYMIC SQUAMOUS CARCINOMA.?The extent of PAX8 and CD117 staining would be unusual for Nut carcinoma. B. MEDIASTINUM, ANTERIOR, 4.5 CM, ULTRASOUND GUIDED FINED NEEDLE ASPIRATION ([id number]; 03/22/17): The cytologic preparations were not reviewed [...] Second opinion with Dr. Roddy Vega in [place]. They reviewed the pathology and concurred they [...] therapy with pembrolizumab L. CT c/a/p 11/06/19 ([facility] [place] [place] second read) - IMPRESSION 1. Worsening left-sided [...] carcinoma. The history is summarized above. INTERVAL HISTORY(03/12/22)- Monica returns to clinic today for follow up of thymic cancer. She is accompanied by her daughter, Cass. On 01/12/22, she was started on therapy with everolimus. She was in the ED on 01/19 with SOB. A thoracentesis was performed with removal of almost 1L of fluid (per d/c summary). She was also told that it she had evidence of heart failure with a high BNP, LE edema and a pericardial effusion. She is feeling better today. She is still taking Lasix 80mg a day. Weight has stabilized but she still has generalized edema especially in her lower extremities. Her breathing is stable. She has not had any chest pain. She does complain of difficulty sleeping because her legs are tight an prickly at night. Her appetite has improved and she is eating and drinking well. No mucositis. She does have discomfort in her lower extremities but denies any other pain. She is in a wheelchair today butat home she is ambulatory. Denies any nausea,vomiting, constipation or diarrhea. No other focal complaints today. 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 Fam Hx: No h/o cancer Review of Systems Constitutional: Negative for activity change, appetite change, fatigue, fever and unexpected weightchange. HENT: Negative. Respiratory: Negative for cough. Cardiovascular: Positive for leg swelling. Negative for chest pain. Gastrointestinal: Positive for abdominal distention. Negative for abdominal pain, constipation, diarrhea, nausea and vomiting. Genitourinary: Negative. Musculoskeletal: Negative. Skin: Negative for rash (improving). Neurological: Negative. Negative for dizziness and light-headedness. Hematological: Negative. Negative for adenopathy. Psychiatric/Behavioral: Negative. All other systems reviewed and are negative. Objective: Physical Exam Vitals reviewed. Constitutional: General: She is not in acute distress. HENT: Head: Normocephalic and atraumatic. Mouth/Throat: Pharynx: Oropharynx is clear. No oropharyngeal exudate. Eyes: General: No scleral icterus. Conjunctiva/sclera: Conjunctivae normal. Cardiovascular: Rate and Rhythm: Normal rate. Rhythm irregular. Pulmonary: Effort: Pulmonary effort is normal. No respiratory distress. Breath sounds: No wheezing or rales. Comments: Diminished at bases Abdominal: General: Bowel sounds are normal. Palpations: Abdomen is soft. There is no mass. Tenderness: There is no abdominal tenderness. Musculoskeletal: General: Swelling (2-3+ LE edema) present. Right lower leg: Edema present. Left lower leg: Edema present. Comments: 3+ bilateral lower extremity edema Skin: General: Skin is warm and dry. Findings: No rash. Neurological: General: No focal deficit present. Mental Status: She is alert. Psychiatric: Mood and Affect: Mood normal. Behavior: Behavior normal. .BP 119/63 (Patient Position: Sitting) Pulse 75 Temp 36.5 ??C (97.7 ??F) (Tympanic) Resp 18 Ht 175.3 cm (5' 9) Wt 104.3 kg (230 lb) SpO2 100% BMI 33.97 kg/m?? Labs: 03/09/22- WBC-3.4 Hgb/Hct-8.4/27.3 Plt-131 ANC-2.5 Na-133 K+-3.3 Alk phos-72 AST-15 ALT-11 BUN/Cr-19/1.19 Ontkmys-830Xo-5.3 Albumin-2.9 Mg-1.6 (01/27/22): WBC/ANC - 2.08/1333. Hgb/Hct - 10.8/33.3, [...] pembrolizumab. I spoke with Dr. Vega at [facility] There were no clinical trials [...] also spoke with Dr. Shon Ramon at [facility] [place]. He agreed that gemcitabine plus capecitabine is [...] for another echo and see her afterward. 03/12/22- Monica is currently on Affinitor 5mg daily. She is still having difficulties with edema. Echo done on 03/10/22 shows normal global systolic function with EF 65%. Global peak systolic strain -21.1%. She is going to follow up with Dr. Vidal. She is very uncomfortable with the edema and is having difficulty sleeping. Prescription for Trazadone 50mg po at [facility]. She did not want the lorazepam. She is still taking Lasix 80mg daily. No respiratory distress. She is not happy with her blood counts today. Anemia slightly worse and worsening leukopenia. After discussion with her and her daughter they decided she would like to hold the Affintor for a week and repeat her labs and see if there is any improvement in the edema. We discussed options of taking the drug every other week or every other day. She would also like to get her next CT scan scheduled for March. We will get her labs in one week and have a telephone visit with her to see how she is doing. Monica voiced understanding of the plan and was given an opportunity to ask questions which I answered to the best of my ability. Monica understands she can call the clinic between visits with any questions/concerns or new symptoms. Nadeen FARNSWORTH, BOOKMOBILE DRIVER, AOCNP Medical Oncology documented in this encounter Plan of Treatment Upcoming Encounters Date Type Department Care Team (Late st Contact Info) Description 02/24/2024 9:00 AM EDT Office Visit Hematology/Oncology at [address] [phone] Shon Schneider MD [facility] [place] [address] [address] [place] [address] 02/24/2024 9:30 AM EDT Infusion Hematology Oncology at [address] [phone] 03/02/2024 11:00 AM EDT Office Visit Hematology/Oncology at [address] [phone] Shon Schneider MD [facility] [place] [address] [address] [place] [address] 03/02/2024 12:30 PM EDT Infusion Hematology Oncology at [address] [phone] 03/09/2024 10:00 AM EDT Office Visit Hematology/Oncology at [address] [phone] Shon Schneider MD [facility] [place] [address] [address] [place] [address] 03/09/2024 10:30 AM EDT Infusion Hematology Oncology at [address] [phone] documented as of this encounter Goals Goal [...] Priority Date/Time Associated Diagnosis Comments LAB SCAN 03/09/2022 12:00 AM EDT documented in this encounter Results * SCAN DOC: LAB (03/09/2022 12:00 AM EDT) Narrative 03/09/2022 12:00 AM EDT Ordered by an unspecified provider. 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
--- OUTSIDE RECORDS SUMMARY | 2024-02-24 01:18 | XMS_ITS | Encounter Summary ---
Author Organization [facility] [place] [address] Care Team Providers Care Bobbin Winder Tender Name Role Phone Jerzy Vidal MD Primary Care Provider [phone] Encounter Details Date Type Department Care Team (Late Contact Info) Description 11/05/2021 3:15 PM EDT Ancillary Procedure [place] [address] Shon Schneider MD [facility] [place] [address] Social History Tobacco Use Types Packs/Day Years [...] AM EDT Office Visit Hematology/Oncology at [address] [phone] Shon Schneider MD [facility] [place] [address] Ciara Pitts APRN [address] [place] [address] DR HEMATOLOGY AND ONCOLOGY [place], [place] [address] 02/24/2024 9:30 AM EDT Infusion Hematology Oncology at [address] [phone] 03/02/2024 11:00 AM EDT Office Visit Hematology/Oncology at [address] [phone] Shon Schneider MD [facility] [place] [address] HEMATOLOGY AND ONCOLOGY [place], [place] [id number] 03/02/2024 12:30 PM EDT Infusion Hematology Oncology at [address] [phone] 03/09/2024 10:00 AM EDT Office Visit Hematology/Oncology at [address] [phone] Shon Schneider MD [facility] [place] [address] [address] HEMATOLOGY AND ONCOLOGY [place], [place] [address] 03/09/2024 10:30 AM EDT Infusion Hematology Oncology at [address] [phone] documented as of this encounter Goals Goal Patient Goal Type Associated Problems Recent Progress Patient-Stated? Author DH Home Medication Compliance and Understanding Patient Facing Action Plan On track( 019 3:22 PM EST) Ivana Ashraf, [facility] Note: Remain 95% or better adherent to chemotherapy without severe side effects as assessed by days supply and patient reported adverse events at each refill documented as of this encounter Procedures Procedure Name Priority Date/Time Associated Diagnosis Comments FILM LIBRARY STORAGE ONLY CT CHEST Routine 11/05/2021 3:12 PM EDT documented in this encounter Results * Film Library- Storage Only CT Chest (11/05/2021 3:12 PM EDT) Narrative [facility] [place] - 11/05/2021 3:12 PM EDT This exam is auto-finalizing. It's purpose is for storage only. Shon Schneider MD IMG FILM LIBRARY ORD ERABLES Performing Organization Address City/State/[facility] Co de Phone Number [place], [place] documented in this encounter Visit Diagnoses Not on filedocumented in this encounter Care Teams Bobbin Winder Tender Relationship Specialty Start Date End Date Jerzy Vidal MD [address] [place] [address] [place] [address] PCP - [facility] Medicine 12/04/18 documented as of this encounter
--- OUTSIDE RECORDS SUMMARY | 2024-02-24 01:18 | XMS_ITS | Encounter Summary ---
Author Organization [facility] [place] [address] Care Team Providers Care Machinery Dismantler Name Role Phone Jerzy Vidal MD Primary Care Provider [phone] Encounter Details Date Type Department Care Team (Late st Contact Info) Description 01/19/2022 Telephone Hematology/Oncology at [address] [phone] Lashawn Skelton, RN Social History Tobacco Use Types Packs/Day Years Used Date Smoking Tobacco: Never Smokeless Tobacco: Never Sex and Gender Information Value Date Recorded Sex Assigned at Not on file Gender Identity Not on file Sexual Orientation Not on file documented as of this encounter Miscellaneous Notes * Telephone Encounter - Lashawn Skelton RN - 01/19/2022 4:34 PM EDT Monica Frederick's daughter called to let us know that Monica went to the ED at [facility] because she was having SOB and trouble breathing overnight. Yoly reports they drained 1L off her pleural effusion- sent for culture ans cytology. Doctors also mentioned that it looks like she has CHF based on clinical picture, a high proBNP, and fluid around her heart- this was surprising news to them and are concerned and wondering what to do. We talked about checking in with her PCP and going from there. Will get d/c jo from [facility]. Dr. Schneider updated via this note. documented in this encounter Plan of Treatment Upcoming Encounters Date Type Department Care Team (Late st Contact Info) Description 02/24/2024 9:00 AM EDT Office Visit Hematology/Oncology at [address] [phone] Shon Schneider MD [facility] [place] [address] Ciara Pitts, [address] [place] [address] 02/24/2024 9:30 AM EDT Infusion Hematology Oncology at [address] [phone] 03/02/2024 11:00 AM EDT Office Visit Hematology/Oncology at [address] [phone] Shon Schneider MD [facility] [place] [address] [address] [place] [address] 03/02/2024 12:30 PM EDT Infusion Hematology Oncology at [address] [phone] 03/09/2024 10:00 AM EDT Office Visit Hematology/Oncology at [address] [phone] Shon Schneider MD [facility] [place] [address] Ciara Pitts [address] [place] [address] 03/09/2024 10:30 AM EDT Infusion Hematology Oncology at [address] [phone] documented as of this encounter Goals Goal Patient Goal Type Associated Problems Recent Progress Patient-Stated? Author DH Home Medication Compliance and Understanding Patient Facing Action Plan On track( 019 3:22 PM EST) No Ivana Vanegas, [facility] Note: Remain 95% or better adherent to chemotherapy without severe side effects as assessed by days supply and patient reported adverse events at each refill documented as of this encounter Visit Diagnoses Not on filedocumented in this encounter Care Teams Machinery Dismantler Relationship Specialty Start Date End Date Jerzy Vidal MD [address] [place] [address] [place] [address] PCP - [facility] Medicine 12/04/18 documented as of this encounter
--- OUTSIDE RECORDS SUMMARY | 2024-02-24 01:18 | XMS_ITS | Encounter Summary ---
Author Organization [facility] [place] [address] Care Team Providers Care Bodywork Therapist Name Role Phone Jerzy Vidal MD Primary Care Provider [phone] Encounter Details Date Type Department Care Team (Late st Contact Info) Description 02/11/2022 Refill Hematology Oncology at [address] [phone] Eden Vieira, RN Edema of lower extremity Social History Tobacco Use Types Packs/Day Years Used Date Smoking Tobacco: Never Smokeless Tobacco: Never Sex and Gender Information Value Date Recorded Sex Assigned at Not on file Gender Identity Not on file Sexual Orientation Not on file documented as of this encounter Miscellaneous Notes * Telephone Encounter - Eden Vieira RN - 02/11/2022 2:15 PM EDT ----- Message from Monica Hallman sent at 02/11/2022 1:21 PM EDT ----- Monica called in about her furosemide (Lasix) 20 mg Tablet, she said that upped her to take 80 mg daily and she said that it is not written right. She is almost out with no new prescription at the Pharmacy. She would a call back to let her know the new one is in as her daughter would be picking it up. [phone] documented in this encounter Plan of Treatment Upcoming Encounters Date Type Department Care Team (Late st Contact Info) Description 02/24/2024 9:00 AM EDT Office Visit Hematology/Oncology at [address] [phone] Shon Schneider MD [facility] [place] [address] [place] [address] 02/24/2024 9:30 AM EDT Infusion Hematology Oncology at [address] [phone] 03/02/2024 11:00 AM EDT Office Visit Hematology/Oncology at [address] [phone] Shon Schneider MD [facility] [place] [address] [address] HEMATOLOGY AND ONCOLOGY [place], [place] [address] 03/02/2024 12:30 PM EDT Infusion Hematology Oncology at [address] [phone] 03/09/2024 10:00 AM EDT Office Visit Hematology/Oncology at [address] [phone] Shon Schneider MD [facility] [place] [address] Ciara Pitts [address] [place] [address] 03/09/2024 10:30 AM EDT Infusion Hematology Oncology at [address] [phone] documented as of this encounter Goals Goal [...] thymus documented in this encounter Care Teams Bodywork Therapist Relationship Specialty Start Date End Date Jerzy Vidal MD [address] [place] [address] [place] [address] PCP - [facility] Medicine 12/04/18 documented as of this encounter
--- OUTSIDE RECORDS SUMMARY | 2024-02-24 01:18 | XMS_ITS | Encounter Summary ---
Author Organization [facility] [place] [address] Care Team Providers Care Deck Hand Name Role Phone Jerzy Vidal MD Primary Care Provider [phone] Encounter Details Date Type Department Care Team (Late Contact Info) Description 12/11/2021 8:00 PM EDT Ancillary Procedure [place] [address] Jerzy Vidal MD [address] [place] [id number] Social History Tobacco Use Types Packs/Day Years [...] AM EDT Office Visit Hematology/Oncology at [address] [phone] Shon Schneider MD [facility] [place] [address] Ciara Pitts APRN [address] [place] [address] DR HEMATOLOGY AND ONCOLOGY [place], [place] [id number] 02/24/2024 9:30 AM EDT Infusion Hematology Oncology at [address] [phone] 03/02/2024 11:00 AM EDT Office Visit Hematology/Oncology at [address] [phone] Shon Schneider MD [facility] [place] [place] [address] [address] HEMATOLOGY AND ONCOLOGY [place], [place] [address] 03/02/2024 12:30 PM EDT Infusion Hematology Oncology at [address] [phone] 03/09/2024 10:00 AM EDT Office Visit Hematology/Oncology at [address] [phone] Shon Schneider MD [facility] [place] [address] [address] [place] [address] 03/09/2024 10:30 AM EDT Infusion Hematology Oncology at [address] [phone] documented as of this encounter Goals Goal Patient Goal Type Associated Problems Recent Progress Patient-Stated? Author DH Home Medication Compliance and Understanding Patient Facing Action Plan On track( 019 3:22 PM EST) Ivana Ashraf, [facility] Note: Remain 95% or better adherent to chemotherapy without severe side effects as assessed by days supply and patient reported adverse events at each refill documented as of this encounter Procedures Procedure Name Priority Date/Time Associated Diagnosis Comments FILM LIBRARY STORAGE ONLY CT CHEST Routine 12/11/2021 7:58 PM EDT documented in this encounter Results * Film Library- Storage Only CT Chest (12/11/2021 7:58 PM EDT) Narrative [facility] [place] - 12/11/2021 7:58 PM EDT This exam is auto-finalizing. It's purpose is for storage only. Jerzy Vidal MD [facility] FILM LIBRARY ORD ERABLES Performing Organization Address City/State/[facility] Co de Phone Number [place], [place] documented in this encounter Visit Diagnoses Not on filedocumented in this encounter Care Teams Deck Hand Relationship Specialty Start Date End Date Jerzy Vidal MD [address] [place] [address] [place] [address] PCP - [facility] Medicine 12/04/18 documented as of this encounter
--- OUTSIDE RECORDS SUMMARY | 2024-02-24 01:18 | XMS_ITS | Encounter Summary ---
Author Organization [facility] [place] [address] Care Team Providers Care Property Portfolio Officer Name Role Phone Jerzy Vidal MD Primary Care Provider [phone] Encounter Details Date Type Department Care Team (Late Contact Info) Description 10/22/2021 Telephone Hematology/Oncology at [address] [phone] Dorian Esparza Social History Tobacco Use Types Packs/Day Years Used Date Smoking Tobacco: Never Smokeless Tobacco: Never Sex and Gender Information Value Date Recorded Sex Assigned at Not on file Gender Identity Not on file Sexual Orientation Not on file documented as of this encounter Miscellaneous Notes * Telephone Encounter - Dorian Esparza - 10/22/2021 12:49 PM EDTSummary: ct c/a/p authorization Images from the original note were not included. I called Rohan to prior auth patient's CT scan for her MVP managed MCR plan. I spoke with Iban stated that this scan did not require PA through them. Ref #[id number] I then went to the [facility] site as directed by their automated phone center and this is what was postedthere. documented in this encounter Plan of Treatment Upcoming Encounters Date Type Department Care Team (Late Contact Info) Description 02/24/2024 9:00 AM EDT Office Visit Hematology/Oncology at [address] [phone] Shon Schneider MD [facility] [place] [address] [address] HEMATOLOGY AND ONCOLOGY [place], [place] [address] [phone] 02/24/2024 9:30 AM EDT Infusion Hematology Oncology at [address] [phone] 03/02/2024 11:00 AM EDT Office Visit Hematology/Oncology at [address] [phone] Shon Schneider MD [facility] [place] [address] [address] HEMATOLOGY AND ONCOLOGY [place], [place] [address] 03/02/2024 12:30 PM EDT Infusion Hematology Oncology at [address] [phone] 03/09/2024 10:00 AM EDT Office Visit Hematology/Oncology at [address] [phone] Shon Schneider MD [facility] [place] [address] [address] HEMATOLOGY AND ONCOLOGY [place], [place] [address] 03/09/2024 10:30 AM EDT Infusion Hematology Oncology at [address] [phone] documented as of this encounter Goals Goal Patient Goal Type Associated Problems Recent Progress Patient-Stated? Author DH Home Medication Compliance and Understanding Patient Facing Action Plan On track( 019 3:22 PM EST) No Ivana Vanegas, [facility] Note: Remain 95% or better adherent to chemotherapy without severe side effects as assessed by days supply and patient reported adverse events at each refill documented as of this encounter Visit Diagnoses Not on filedocumented in this encounter Care Teams Property Portfolio Officer Relationship Specialty Start Date End Date Jerzy Vidal MD [address] [place] [address] [place] [address] PCP - [facility] Medicine 12/04/18 documented as of this encounter
--- OUTSIDE RECORDS SUMMARY | 2024-02-24 01:18 | XMS_ITS | Encounter Summary ---
Author Organization [facility] [place] [address] Care Team Providers Care Control Center Operator Name Role Phone Jerzy Vidal MD Primary Care Provider [phone] Encounter Details Date Type Department Care Team (Late st Contact Info) Description 11/10/2021 3:00 PM EDT TH Visit (TeleHealth) Hematology/Oncology at [address] [phone] Shon Schneider MD [facility] [place] [address] Thymic carcinoma; Pleural effusion Social History Tobacco Use Types Packs/Day Years Used Date Smoking Tobacco: Never Smokeless Tobacco: Never Sex and Gender Information Value Date Recorded Sex Assigned at Not on file Gender Identity Not on file Sexual Orientation Not on file documented as of this encounter Progress Notes * Shon Schneider MD - 11/10/2021 3:00 PM EDT Subjective: Patient ID: Monica Jaramillo [...] pleural effusion with compression atelectasis. transferred to [facility] for further evaluation and workup and [...] B. 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 [facility] - CONSULT SLIDES FROM [facility]; [place], [place]: A. MEDIASTINUM, MASS, BIOPSY ([id number]; 03/22/2017): ? 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 ?Immunohistochemistry performed at the outside institution and reviewed at [facility] demonstrates the following staining profile in lesional cells: ? Positive - AE1/AE3, p40, PAX8, CD117, CD5(multifocal), CK7(scattered cells), synaptophysin, chromogranin ? Negative - CK20, TTF-1, GATA3, CD34 ? The immunohistochemical profile supports the above diagnosis. ? Ki67 (MIB-1) proliferation index performed at the referring institution and reviewed at [facility] is focally up to ~30%. NOTE: While diffuse synaptophysin and chromogranin expression is unusual for conventional thymic carcinoma, the overall histomorphology and immunophenotype is most in keeping with THYMIC SQUAMOUS CARCINOMA.?The extent of PAX8 and CD117 staining would be unusual for Nut carcinoma. B. MEDIASTINUM, ANTERIOR, 4.5 CM, ULTRASOUND GUIDED FINED NEEDLE ASPIRATION ([id number]; 03/22/17): The cytologic preparations were not reviewed [...] Second opinion with Dr. Roddy Vega in [place]. They reviewed the pathology and concurred they [...] therapy with pembrolizumab L. CT c/a/p 11/06/19 [place] [place] - IMPRESSION [...] atrial fibrillation 3. HTN 4. Echocardiogram 06/20/18 ([facility]) - Summary: 1. Preserved LV function [...] She says she is doing ok. She was off of the lenvantinib for about 3weeks due to recurrent polycythemia. She restarted that about 10 days ago. She is tolerating that well. No n/v. The diarrhea is gone. She is eating better and has gained weight back. Her weight todaywas 201#. She is enjoying cookin and eating. She checks her oxygen levels and these have been good,in the upper 90s. Her HR has been running in the low 40s. At times she feels SOB. She still has a rash on her arms intermittently. She uses a hydrocortisone cream and A and D ointment. The rash comesand goes. It is on her forearms mostly and on occasion on her thighs. Her energy level and strengthseem to be pretty good. Soc Hx: , lives in [place], [place] Tob - Never Etoh - rare [...] pembrolizumab. I spoke with Dr. Vega at [facility]. There were no clinical trials [...] also spoke with Dr. Shon Ramon at [facility] [place]. He agreed that gemcitabine plus capecitabine is [...] done on 11/05/21. The anterior mediastinal mass is stable. However, there are new (compared with the last scan, bilateral pleural effusions. This is presumably related to the thymic carcinoma, rather than something like CHF, although prior pleural fluid cytology was negative (08/2020). There have been effusions on prior scans which have waxed and waned. Cardiomyopathy is reported with lenvatinib. Her HR has been in the 40s. I would like her to see Dr. Vidal, have an ECG iza sure there isn't evidence of heart block and discuss whether medication adjustment is indicated (she is on metoprolol and diltiazem). I am going to order an Echocardiogram and we will meet again after that. If her cardiac function is ok, then I think we would have to assume that the effusions are related to the underlying cancer and we would talk about other options (eg everolimus, pemetrexed). I will f/u on the labs also. She received her second covid vaccine shot on 09/26/20 I provided care to the patient today via telephone call. The total time associated with this visit was 30 minutes. Lab addendum: Reviewed labs, see above. No change in f/u plan documented in this encounter Plan of Treatment Upcoming Encounters Date Type Department Care Team (Late st Contact Info) Description 02/24/2024 9:00 AM EDT Office Visit Hematology/Oncology at [address] [phone] Shon Schneider MD [facility] [place] [address] [address] HEMATOLOGY AND ONCOLOGY [place], [place] [address] [phone] 02/24/2024 9:30 AM EDT Infusion Hematology Oncology at [address] [phone] 03/02/2024 11:00 AM EDT Office Visit Hematology/Oncology at [address] [phone] Shon Schneider MD [facility] [place] [address] Ciara Pitts [address] HEMATOLOGY AND ONCOLOGY [place], [place] [address] 03/02/2024 12:30 PM EDT Infusion Hematology Oncology at [address] [phone] 03/09/2024 10:00 AM EDT Office Visit Hematology/Oncology at [address] [phone] Shon Schneider MD [facility] [place] [address] Ciara Pitts [address] HEMATOLOGY AND ONCOLOGY [place], [place] [phone] 03/09/2024 10:30 AM EDT Infusion Hematology Oncology at [address] [phone] documented as of this encounter Goals Goal Patient Goal Type Associated Problems Recent Progress Patient-Stated? Author DH Home Medication Compliance and Understanding Patient Facing Action Plan On track( 019 3:22 PM EST) No Ivana Vanegas, [facility] Note: Remain 95% or better adherent to chemotherapy without severe side effects as assessed by days supply and patient reported adverse events at each refill documented as of this encounter Visit Diagnoses Diagnosis Thymic carcinoma Malignant neoplasm of thymus Pleural effusion Unspecified pleural effusion Thymic carcinoma Malignant neoplasm of thymus documented in this encounter Care Teams Control Center Operator Relationship Specialty Start Date End Date Jerzy Vidal MD [address] [place] [address] [place] [address] PCP - [facility] Medicine 12/04/18 documented as of this encounter
--- OUTSIDE RECORDS SUMMARY | 2024-02-24 01:18 | XMS_ITS | Encounter Summary ---
Author Organization [facility] [place] [address] Care Team Providers Care Medical Coordinator Pesticide Use Name Role Phone Jerzy Vidal MD Primary Care Provider [phone] Encounter Details Date Type Department Care Team (Latest Contact Info) Description 02/23/2022 4:00 PM EDT TH Visit (TeleHealth) Hematology/Oncology at [address] [phone] Shon Schneider MD [facility] [place] [address] Thymic carcinoma; Other insomnia; Hypokalemia; Hypomagnesemia; Leg edema; Congestive heart failure, unspecified HF chronicity, unspecified heart failure type Social History Tobacco Use Types Packs/Day Years Used Date Smoking Tobacco: Never Smokeless Tobacco: Never Sex and Gender Information Value Date Recorded Sex Assigned at Not on file Gender Identity Not on file Sexual Orientation Not on file documented as of this encounter Progress Notes * Shon Schneider MD - 02/23/2022 4:00 PM EDT Subjective: Patient ID: Monica [...] pleural effusion with compression atelectasis. transferred to [facility] for further evaluation and workup and [...] Biopsy of mediastinal mass 03/29 Path [place] [place] - Mediastinum, mass, biopsy: 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 [facility] - [facility]ULT SL[facility] FROM [facility]; [place], [place]: A. MEDIASTINUM, MASS, BIOPSY ([id number]; 03/22/2017): ? MALIGNANT THYMIC EPITHELIAL NEOPLASM consistent [...] 4.5 CM, ULTRASOUND GUIDED FINED NEEDLE ASPIRATION ([id number]; 03/22/17): The cytologic preparations were not reviewed [...] Second opinion with Dr. Roddy Vega in [place]. They reviewed the pathology and concurred they [...] with pembrolizumab L. CT c/a/p 11/06/19 [place] [place] - IMPRESSION 1. Worsening left-sided [...] atrial fibrillation 3. HTN 4. Echocardiogram 06/20/18 ([facility]) - Summary: 1. Preserved [...] is about the same as she was two weeks ago. The LE edema persists. Her legs are uncomfortable and restless at night and are this is disrupting her sleep. She thinks this is from irritation of theskin. It is dry and she has been using a moisturizer which helps. She says the skin is not red. Herbreathing is pretty good, not 100% . She is up and active at home. She is taking lasix, 40 mg bid. S he does respond to this but it is short lived. She is eating well. No nausea, no stomatitis. Her bowels are regular. The LE edema began after she started the everolimus. She took her vitals at home today - Weight stable at 226#, O2 - 96%, BP - 103/62, HR - 76 Soc Hx: , lives in [place], [place] Tob - Never Etoh - rare [...] alert. Psychiatric: Mood and Affect: Mood normal. Labs:(02/11/22): WBC/ANC - 3.6/77%, Hgb/Hct - 10/30.6, Plts [...] pembrolizumab. I spoke with Dr. Vega at [facility]. There were no clinical trials [...] the sunitinib and repeat the CT. CT 2/28/20 - two small but new nodules in [...] capecitabine. I also spoke with Dr. Shon Ramno at [facility] [place]. He agreed that gemcitabine plus capecitabine is [...] the everolimus. The leukopenia and thrombocytopenia are better. Of concern is the very low potassium level. She hasn't been able to take the oral potassium due to size. She will continue the everolimus at 5 mg per day. She will continue to thelasix at 40 mg bid. I asked her to take the potassium roger She will continue the everolimus and I will see her next week and recheck labs. She would like to include a repeat proBNP and she will f/u with Dr. Vidal as well. documented in this encounter Plan of Treatment Upcoming Encounters Date Type Department Care Team (Late st Contact Info) Description 02/24/2024 9:00 AM EDT Office Visit Hematology/Oncology at [address] [phone] Shon Schneider MD [facility] [place] [address] [address] HEMATOLOGY AND ONCOLOGY [place], [place] [address] 02/24/2024 9:30 AM EDT Infusion Hematology Oncology at [address] [phone] 03/02/2024 11:00 AM EDT Office Visit Hematology/Oncology at [address] [phone] Shon Schneider MD [facility] [place] [address] [address] HEMATOLOGY AND ONCOLOGY [place], [place] [address] 03/02/2024 12:30 PM EDT Infusion Hematology Oncology at [address] [phone] 03/09/2024 10:00 AM EDT Office Visit Hematology/Oncology at [address] [phone] Shon Schneider MD [facility] [place] [address] Ciara Pitts [address] HEMATOLOGY AND ONCOLOGY [place], [place] [address] 03/09/2024 10:30 AM EDT Infusion Hematology Oncology at [address] [phone] documented as of this encounter Goals Goal Patient Goal Type Associated Problems Recent Progress Patient-Stated? Author DH Home Medication Compliance and Understanding Patient Facing Action Plan On track( 019 3:22 PM EST) No Ivana Vanegas, [facility] Note: Remain 95% or better adherent to chemotherapy without severe side effects as assessed by days supply and patient reported adverse events at each refill documented as of this encounter Visit Diagnoses Diagnosis Thymic carcinoma Malignant neoplasm of thymus Other insomnia Hypokalemia Hypopotassemia Hypomagnesemia Disorders of magnesium metabolism Leg edema Edema Congestive heart failure, unspecified HF chronicity, unspecified heart failure type Thymic carcinoma Malignant neoplasm of thymus documented in this encounter Care Teams Medical Coordinator Pesticide Use Relationship Specialty Start Date End Date Jerzy Vidal MD [address] [place] [address] [place] [address] PCP - [facility] Medicine 12/04/18 documented as of this encounter
--- OUTSIDE RECORDS SUMMARY | 2024-02-24 01:18 | XMS_ITS | Encounter Summary ---
Author Organization [facility] [place] [address] Care Team Providers Care Warehouse Puller Name Role Phone Jerzy Vidal MD Primary Care Provider [phone] Reason for Visit * Reason Comments Medication Refill Encounter Details Date Type Department Care Team (Late Contact Info) Description 02/20/2022 Refill Hematology/Oncology at [address] [phone] Shon Schneider MD [facility] [address] Hypothyroidism, unspecified type Social History Tobacco Use [...] 9:00 AM EDT Office Visit Hematology/Oncology at [address] [phone] Shon Schneider MD [facility] [place] [address] Ciara Pitts APRN [address] [place] [address] DR HEMATOLOGY AND ONCOLOGY [place], [place] [phone] 02/24/2024 9:30 AM EDT Infusion Hematology Oncology at [address] [phone] 03/02/2024 11:00 AM EDT Office Visit Hematology/Oncology at [address] [phone] Shon Schneider MD [facility] [place] [address] [address] HEMATOLOGY AND ONCOLOGY [place], [place] [phone] 03/02/2024 12:30 PM EDT Infusion Hematology Oncology at [address] [phone] 03/09/2024 10:00 AM EDT Office Visit Hematology/Oncology at [address] [phone] Shon Schneider MD [facility] [place] [address] [address] HEMATOLOGY AND ONCOLOGY [place], [place] [address] 03/09/2024 10:30 AM EDT Infusion Hematology Oncology at [address] [phone] documented as of this encounter Goals Goal Patient Goal Type Associated Problems Recent Progress Patient-Stated? Author DH Home Medication Compliance and Understanding Patient Facing Action Plan On track( 019 3:22 PM EST) Ivana Ashraf, [facility] Note: Remain 95% or better adherent to chemotherapy without severe side effects as assessed by days supply and patient reported adverse events at each refill documented as of this encounter Visit Diagnoses Diagnosis Hypothyroidism, unspecified type Thymic carcinoma Malignant neoplasm of thymus documented in this encounter Care Teams Warehouse Puller Relationship Specialty Start Date End Date Jerzy Vidal MD [address] [place] [address] [place] [address] PCP - [facility] Medicine 12/04/18 documented as of this encounter
--- OUTSIDE RECORDS SUMMARY | 2024-02-24 01:19 | XMS_ITS | Encounter Summary ---
Author Organization [facility] [place] [address] Care Team Providers Care Migration Agent Name Role Phone Jerzy Vidal MD Primary Care Provider [phone] Reason for Visit * Reason Onset Date Comments Other 12/08/2020 low magnesium Encounter Details Date Type Department Care Team (Late Contact Info) Description 12/08/2020 Telephone Hematology/Oncology at [address] [phone] Brionna Andrade RN Other (low magnesium) Social History Tobacco Use Types Packs/Day Years Used Date Smoking Tobacco: Never Smokeless Tobacco: Never Sex and Gender Information Value Date Recorded Sex Assigned at Not on file Gender Identity Not on file Sexual Orientation Not on file documented as of this encounter Miscellaneous Notes * Telephone Encounter - Brionna Andrade RN - 12/08/2020 2:51 PM EDT Liz from [facility] at [facility] states Monica called requesting some IV magnesium for her low magnesium level of 1.2. Reviewed with Barbara Flynn NP who ordered two grams of IV magnesium sulfate to run over two hours. Orders faxed to Liz, she will call pt and set up a time. documented in this encounter Plan of Treatment Upcoming Encounters Date Type Department Care Team (Late Contact Info) Description 02/24/2024 9:00 AM EDT Office Visit Hematology/Oncology at [address] [phone] Shon Schneider MD [facility] [place] [address] HEMATOLOGY AND ONCOLOGY [place], [place] [address] [phone] 02/24/2024 9:30 AM EDT Infusion Hematology Oncology at [address] [phone] 03/02/2024 11:00 AM EDT Office Visit Hematology/Oncology at [address] [phone] Shon Schneider MD [facility] [place] [address] HEMATOLOGY AND ONCOLOGY [place], [place] [address] 03/02/2024 12:30 PM EDT Infusion Hematology Oncology at [address] [phone] 03/09/2024 10:00 AM EDT Office Visit Hematology/Oncology at [address] [phone] Shon Schneider MD [facility] [place] [address] [address] HEMATOLOGY AND [place]COLOGY [place], [place] [address] [phone] 03/09/2024 10:30 AM EDT Infusion Hematology Oncology at [address] [phone] documented as of this encounter Goals Goal Patient Goal Type Associated Problems Recent Progress Patient-Stated? Author DH Home Medication Compliance and Understanding Patient Facing Action Plan On track( 019 3:22 PM EST) No Ivana Vanegas, [facility] Note: Remain 95% or better adherent to chemotherapy without severe side effects as assessed by days supply and patient reported adverse events at each refill documented as of this encounter Visit Diagnoses Not on filedocumented in this encounter Care Teams Migration Agent Relationship Specialty Start Date End Date Jerzy Vidal MD [address] [place] [address] [place] [address] PCP - [facility] Medicine 12/04/18 documented as of this encounter
--- OUTSIDE RECORDS SUMMARY | 2024-02-24 01:19 | XMS_ITS | Encounter Summary ---
Author Organization [facility] [place] [address] Care Team Providers Care Marine Reporter Name Role Phone Jerzy Vidal MD Primary Care Provider [phone] Encounter Details Date Type Department Care Team (Late Contact Info) Description 05/11/2021 Orders Only Hematology [place] [phone] Shon Schneider MD [facility] [place] [address] Thymic carcinoma Social History Tobacco Use Types [...] AM EDT Office Visit Hematology/Oncology at [address] [phone] Shon Schneider MD [facility] [place] [address] Ciara Pitts APRN [address] [place] [address] [place] [address] 02/24/2024 9:30 AM EDT Infusion Hematology Oncology at [address] [phone] 03/02/2024 11:00 AM EDT Office Visit Hematology/Oncology at [address] [phone] Shon Schneider MD [facility] [address] HEMATOLOGY AND ONCOLOGY [place], [place] [address] 03/02/2024 12:30 PM EDT Infusion Hematology Oncology at [address] [phone] 03/09/2024 10:00 AM EDT Office Visit Hematology/Oncology at [address] [phone] Shon Schneider MD [facility] [place] [address] [address] HEMATOLOGY AND ONCOLOGY [place], [place] [address] 03/09/2024 10:30 AM EDT Infusion Hematology Oncology at [address] [phone] documented as of this encounter Goals Goal [...] thymus documented in this encounter Care Teams Marine Reporter Relationship Specialty Start Date End Date Jerzy Vidal MD [address] [place] [address] [place] [address] PCP - [facility] Medicine 12/04/18 documented as of this encounter
--- OUTSIDE RECORDS SUMMARY | 2024-02-24 01:19 | XMS_ITS | Encounter Summary ---
Author Organization [facility] Address [facility] [place] [address] Care Team Providers Care Assembler Finger Buffs Name Role Phone Jerzy Vidal MD Primary Care Provider [phone] Encounter Details Date Type Department Care Team (Late st Contact Info) Description 01/02/2021 1:00 PM EDT Office Visit Hematology/Oncology at [address] [phone] Shon Schneider MD [facility] [place] [address] Ivory Flynn [employer] [address] [place] [address] DR HEMATOLOGY ONCOLOGY [place], [place] [id number] Hypothyroidism, acquired; Thymic carcinoma; Hypomagnesemia Social History Tobacco Use Types Packs/Day Years Used Date Smoking Tobacco: Never Smokeless Tobacco: Never Sex and Gender Information Value Date Recorded Sex Assigned at Not on file Gender Identity Not on file Sexual Orientation Not on file documented as of this encounter Last Filed Vital Signs Vital Sign Reading Time Taken Comments Blood Pressure 132/96 01/02/2021 12:55 PM EDT Pulse 62 01/02/2021 12:55 PM EDT Temperature 36.1 ??C (97 ??F) 01/02/2021 12: 55 PM EDT Respiratory Rate 18 01/02/2021 12:5 5 PM EDT Oxygen Saturation 98% 01/02/2021 12: 55 PM EDT Inhaled Oxygen Concentration - - Weight 107.1 kg (236 lb 3.2 oz) 021 12:55 PM EDT Height 175.3 cm (5' 9) 01/02/2021 12:5 5 PM EDT Body Mass Index 34.88 01/02/2021 12:55 PM EDT documented in this encounter Patient Instructions * Patient Instructions* Ivory Flynn APRN - 01/02/2021 1:00 PM EDT Monica, Here are some things we talked about today, 1) Increase your Levothyroxine to 75 mcgs daily. This will be one 50 mcg tablet and one 25 mcg tablet every day. 2) Continue the Magnesium at 1000mg a day. (4 - 250s) 3) Drink 2 quarts of fluid a day. documented in this encounter Progress Notes * Ivory Flynn APRN - 01/02/2021 1:00 PM EDT Subjective: Patient ID: Monica Jaramillo is a 65 y.o. female. HPI Patient ID: Monica Jaramillo is a 64 y.o. female. Problem List: 1. Thymic carcinoma, stage IV A. Presented to the ED with increasing SOB, h/o atrial fibrillation on apixaban. ??CT was done withPE protocol and she was found to have an anterior mediastinal mass measuring 8.8 x 8.8 x 4.8 cm and a moderately large sized left pleural effusion with compression atelectasis. ?? transferred to [facility] for further evaluation and workup and had some initialproblems with hypoxemia that landed her in the ICU. ??She had 1.6 liters of left-sided pleural fluid tapped and cytology was negative on that. ??She slowly improved and the mediastinal mass was biopsied in mid-March and it showed a poorly differentiated carcinoma. ??Additionally, she was noted to have a left breast mass. ??That was biopsied and found to be benign. ? B. Biopsy of mediastinal mass 03/29 Path ([facility] [place] review) - Mediastinum, mass, biopsy: 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 ?? [facility] - CONSULT SLIDES FROM [facility]; [place], [place]: A. MEDIASTINUM, MASS, BIOPSY ([id number]; 03/22/2017): ? MALIGNANT THYMIC EPITHELIAL NEOPLASM consistent [...] 4.5 CM, ULTRASOUND GUIDED FINED NEEDLE ASPIRATION ([id number]; 03/22/17): The cytologic preparations were not reviewed due to a lack of medical necessity. ?? PD-L1 - positive at 75%. ?? C. PET scan 04/18/17 - Impression: 1. [...] 4. Additional incidental findings as described above. ?? D. Second opinion with Dr. Roddy Vega in [place]. ??They reviewed the pathology and concurred they felt this was a thymic carcinoma, although were less certain about the neuroendocrine differentiation. ??They felt it had a non- keratinizing squamous histology. ??She was evaluated by both surgery and radiation therapy and in view of the areas of tumor seen on PET scan, she was not felt to be a surgical candidate or a candidate for radiation therapy and systemic treatment was recommended. ? E. 05/30/17 - Began chemotherapy with carboplatin plus paclitaxel, s/p 16 cycles. ?? F. CT chest 08/17/17 - Impression: 1.?Overall, [...] left breast mass. 3.?Additional findings as above. ?? CT chest 12/28/17 - IMPRESSION: 1. Slight decrease in size of known anterior mediastinal mass, stable superior mediastinal adenopathy and improvement of pleural disease within the left hemithorax. 2. Coronary atherosclerosis. 3. Left atrial enlargement. ?? CT chest 05/11/18 - Impression: 1.?Overall minimal [...] and along the left inferior pulmonary ligament. ?? CT abd/pelvis 05/11/18 - Impression: 1.?Unchanged lytic [...] mg two weeks, then 1 week off. ?? H. CT c/a/p 09/26/18 - Chest - Impression: 1.?Stable appearance of anterior mediastinal mass with minimal juxta pericardial tacos and left-sided pleural disease all which appear stable from April,. 2.?Atherosclerotic disease of the coronary arteries and aorta. 3.?Stable left breast mass unchanged. ?? Abd/pelvis - Impression: 1.?Unchanged lytic and sclerotic lesions in the spine. No evidence of new metastatic disease or adenopathy within the abdomen or pelvis. 2.?Fibroid uterus. Possible fluid within the endometrial canal. Correlate clinically for evidence of vaginal bleeding. 3.?Multiple unchanged fat and bowel containing ventral and umbilical hernias without evidence ofobstruction or strangulation. 4.?Otherwise as above. ?? CT c/a/p 12/19/18 - IMPRESSION 1. ??Stable size and morphology anterior mediastinal mass measuring 3 x 9 cm, consistent with knownthymic carcinoma. 2. ??Stable borderline mediastinal and pericardial adenopathy. 3. ??Stable lytic lesion L2 vertebral body. 4. ??Stable left breast mass. Please correlate with mammographic imaging/breast ultrasound for lesion characterization and management. 5. ??Previously identified liver abnormalities are not appreciated on today's exam. 6. ??Stable bowel and fat-containing abdominal wall hernias without evidence of complications. I. Therapy held beginning 11/29/18 due to prolonged myelosuppression. 01/05/19 - Resumed therapy at 25 mg per day, 14 days on, [address] c/a/p 04/04/19 - IMPRESSION 1. 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 2. ??Increased size of LEFT pericardial lymph node. 3. ??Stable LEFT breast mass. 4. ??Stable multiple 5 mm or less LEFT pleural-based nodules. ?? CT c/a/p 07/31/2019 - IMPRESSION: Unexpected finding: Dual new left lower lobe pulmonary nodules measuring 7 and 11 mm. Stable mediastinal mass, stable pericardial and epicardial soft tissue nodularity, stable left breast mass, stable left pericardial lymph node.?? K. 08/17/19 - began therapy with pembrolizumab L. CT c/a/p 11/06/19 ([facility] [place] second read) - IMPRESSION 1. ??Worsening left-sided pleural and fissural metastases. Worsening pericardial metastases. 2. ??No interval change in size of partially calcified thymic mass. 3. ??Unchanged nonspecific left breast mass. 4. ??No evidence of metastatic disease below the diaphragm. ?? CT c/a/p 02/06/20 (c/w 11/06/19) - Impression: [...] left breast nodule. Follow-up ultrasound suggested. 0. 02/29/20 - Began therapy with gemcitabine plus capecitabine, s/p 1 cycle (gemcitabine - day 1 and8; capecitabine bid for 14 days then 7 days off) ?? 2. H/o atrial fibrillation 3. HTN 4. Echocardiogram 06/20/18 ([facility]) - Summary: 1. Preserved LV [...] = 3.1 cm 6. Clinical correlation required ?? Echo 08/09/19 - Summary: Normal left ventricular size and systolic function. LVH. Right ventricle mildly dilated, normally functioning.Mild aortic stenosis. Pulmonary pressures are mild to moderately elevated. Biatrial enlargement. Diastolic indices are indeterminate, patient in atrial fibrillation. Borderline elevated indices suggesting LV filling pressures. (LVEF 60-65%). ?? 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 ?? Fam Hx: No h/o cancer INTERVAL HPI 01/02/21 Monica Jaramillo is a 64 yo female with stage IV thymic carcinoma diagnosed in 03/29. (Refer to extensive history summarized above.) Monica returns to the [facility] oncology clinic today accompanied by her Royce for clinic visit for evaluation of ongoing Lenvatinib therapy. Monica started Lenvatinib 24 mg po QD on 08/15/20. Monica reports a few ongoing side effects. She does feel a little more fatigued. She gets intermittent nausea and taste alterations. Some foods do not taste the same. She has lost 6 pounds in the past month and she attributes this to eating more fruits and vegetables as meals since these taste better to her. Monica reports increasing sensitivity on her tongue. She denies mouth sores. The nausea seems to occur randomly and the Ondansetron works well. She did have one episode of vomiting. She moves her bowels regularly, and adds Miralax if she notices them slowing. She denies shortness of breath with activity or new cough. She checks her oxygen saturations periodically which have been reading in the high 90's. Some days her eyes feel more watery. They were recently very dry in the morning and she had difficulty opening them after sleep. She now uses a cool0-mist humidifier at night and that has helped. She increased her oral Magnesium from 750mg to 1000 mg a day. She denies fever, chills or other illness since her last clinic visit . Allergies Allergen Reactions ??? Carboplatin ??? Penicillins Hives ??? Pollen Extracts Other (See Comments) rhinorrhea Current Medications ??? levothyroxine (Synthroid) 50 mcg Tablet ??? ondansetron (Zofran) 8 mg Tablet ??? levothyroxine (Synthroid) 25 mcg Tablet ??? aMILoride (Midamor) 5 mg Tablet ??? prochlorperazine (Compazine) 10 mg Tablet ??? fluticasone propionate (FLOVENT) 44 mcg/actuation HFA Aerosol Inhaler ??? lenvatinib (LENVIMA) chemo capsule ??? ALBUTEROL INHL ??? magnesium oxide (MAG-OX) 400 mg Tablet ??? acetaminophen (TYLENOL) 500 mg Tablet ??? ascorbic acid, vitamin C, (VITAMIN C) 500 mg Tablet, Chewable ??? meTOPROLOL succinate (TOPROL-XL) 200 mg Tablet Sustained Release 24 hr ??? DILTiazem (CARDIZEM CD) 240 mg Capsule, Sust. Release 24 hr ??? apixaban (ELIQUIS) 5 mg Tablet ??? multivitamin (THERAGRAN) Tablet Social History Tobacco Use ??? Smoking status: Never Smoker ??? Smokeless tobacco: Never Used Vaping Use ??? Vaping Use: Never used Substance Use Topics ??? Alcohol use: Not on file ??? Drug use: Not on file Review of Systems Constitutional: Positive for fatigue. Negative for activity change, appetite change and fever. Increase in fatigue. HENT: Negative for congestion, mouth sores, nosebleeds and trouble swallowing. Center and tip of tongue more sensitive. Eyes: Negative. Extremely dry Respiratory: Negative for cough and shortness of breath. Cardiovascular: Negative for chest pain and palpitations. Gastrointestinal: Positive for nausea and vomiting. Negative for abdominal distention, constipationand diarrhea. Endocrine: Positive for cold intolerance. Feels cold more often Genitourinary: Negative. Musculoskeletal: Positive for arthralgias. Left knee intermittent pain and instability. Skin: Negative for color change and rash. Neurological: Negative for dizziness, numbness and headaches. Hematological: Negative. Psychiatric/Behavioral: Negative. Objective: Physical Exam Constitutional: General: She is not in acute distress. Appearance: Normal appearance. HENT: Mouth/Throat: Mouth: Mucous membranes are moist. Pharynx: Oropharynx is clear. Comments: Deeper red down center line of tongue. Eyes: General: Right eye: No discharge. Left eye: No discharge. Conjunctiva/sclera: Conjunctivae normal. Cardiovascular: Rate and Rhythm: Normal rate and regular rhythm. Heart sounds: Normal heart sounds. Pulmonary: Effort: No respiratory distress. Breath sounds: No wheezing or rales. Comments: Breath sound present in all kim but diminished bilaterally in lower kim. Abdominal: Tenderness: There is no abdominal tenderness. Musculoskeletal: Right lower leg: No edema. Left lower leg: No edema. Lymphadenopathy: Cervical: No cervical adenopathy. Upper Body: Right upper body: No supraclavicular adenopathy. Left upper body: No supraclavicular adenopathy. Skin: General: Skin is warm and dry. Findings: No erythema or rash (.vs). Neurological: Mental Status: She is alert and oriented to person, place, and time. Gait: Gait normal. Psychiatric: Mood and Affect: Mood normal. Behavior: Behavior normal. Thought Content: Thought content normal. Judgment: Judgment normal. BP (!) 132/96 (Patient Position: Sitting) Pulse 62 Temp 36.1 ??C (97 ??F) (Temporal) Resp 18 Ht 175.3 cm (5' 9) Wt 107.1 kg (236 lb 3.2 oz) SpO2 98% BMI 34.88 kg/m?? LABS 01/01/21 WBC 4.8; ANC 2.71; H/H 17.3/ 49.4; PLT 151; BUN 9; CREAT 0.90; BILI 1.3; LFTs normal; NA+ 134; MAG 1.6; TSH 57.50; FREET4 0.71. LABS 12/04/20 WBC 4.9; ANC 2.77; H/H 16.8/ 49.3; PLT 181; BUN 12; CREAT 0.90; ALP 75; AST 45; ALT 18; BILI 1.6; MAG 1.2; TSH 45.60; FREE T4 0.91 RECENT IMAGING 10/29/20- CT C/A/P - showed Improvement in left pleural effusion and complete resolution of right pleural effusion. Distended gallbladder. Thymic mass stable. 08/14/20 - Chest CT - IMPRESSION - Anterior mediastinal mass grossly stable and consistent with history of thymic carcinoma. Multiple stable mediastinal LNs. Multiple stable pleural mets. Moderate left and small right pleural effusions presumably metastatic have increased in size compared to most recent CT. Stable atelectasis LLL. Small pericardial effusion visible. Assessment: Monica Jaramillo is a 64 yo female with stage IV thymic carcinoma diagnosed in 03/29. (Refer to extensive history summarized above.) Monica returns to the [facility] oncology clinic accompanied by her Royce for evaluation of daily Levatinib 24mg po QD which she started 08/18/20. CBC, CMP, TSH, FREET4 and MAG are reviewed with Monica and Royce today and support ongoing treatment. Magnesium improved. Hypothyroidism progressing with increased TSH and decreased Free T4. Fatigue maybe due in part to hypothyroidism. She is experiencing nausea about one day a week as main toxicity. Minor mucositis on tongue. Plan:. Continue Levatinib - 24 mg po QD. Antiemetics as needed for nausea. Increase levothyroxine to 75 mcgs po qd. Additional prescription for 25mcg size sent in. Continue oral Magnesium 1gm QD. SWBS swishes 4X daily. Call if tongue discomfort increases. RTC in one month with labs, visit. documented in this encounter Plan of Treatment Upcoming Encounters Date Type Department Care Team (Late st Contact Info) Description 02/24/2024 9:00 AM EDT Office Visit Hematology/Oncology at [address] [phone] hSon Schneider MD [facility] [place] [address] Ciara Pitts APRN [address] [place] [address] DR HEMATOLOGY AND ONCOLOGY [place], [place] [id number] 02/24/2024 9:30 AM EDT Infusion Hematology Oncology at [address] [phone] 03/02/2024 11:00 AM EDT Office Visit Hematology/Oncology at [address] [phone] Shon Schneider MD [facility] [place] [address] HEMATOLOGY [place] [address] 03/02/2024 12:30 PM EDT Infusion Hematology Oncology at [address] [phone] 03/09/2024 10:00 AM EDT Office Visit Hematology/Oncology at [address] [phone] Shon Schneider MD [facility] [place] [address] HEMATOLOGY AND ONCOLOGY [place], [place] [address] 03/09/2024 10:30 AM EDT Infusion Hematology Oncology at [address] [phone] documented as of this encounter Goals Goal Patient Goal Type Associated Problems Recent Progress Patient-Stated? Author DH Home Medication Compliance and Understanding Patient Facing Action Plan On track( 019 3:22 PM EST) No Ivana Vanegas, [facility] Note: Remain 95% or better adherent to chemotherapy without severe side effects as assessed by days supply and patient reported adverse events at each refill documented as of this encounter Visit Diagnoses Diagnosis Hypothyroidism, acquired Unspecified hypothyroidism Thymic carcinoma Malignant neoplasm of thymus Hypomagnesemia Disorders of magnesium metabolism Thymic carcinoma Malignant neoplasm of thymus documented in this encounter Care Teams Assembler Finger Buffs Relationship Specialty Start Date End Date Jerzy Vidal MD [address] [place] [address] [place] [address] PCP - [facility] Medicine 12/04/18 documented as of this encounter
--- OUTSIDE RECORDS SUMMARY | 2024-02-24 01:19 | XMS_ITS | Encounter Summary ---
Author Organization [facility] Address [facility] [place] [address] Care Team Providers Care Consumer Studies Professor Name Role Phone Jerzy Vidal MD Primary Care Provider [phone] Encounter Details Date Type Department Care Team (Late st Contact Info) Description 03/13/2021 8:00 AM EDT TH Visit (TeleHealth) Hematology/Oncology at [address] [phone] Shon Schneider MD [facility] [place] [address] Ivory Flynn APRN [address] [place] [address] DR HEMATOLOGY ONCOLOGY [place], [place] [id number] Thymic carcinoma; Polycythemia Social History Tobacco Use Types Packs/Day Years Used Date Smoking Tobacco: Never Smokeless Tobacco: Never Sex and Gender Information Value Date Recorded Sex Assigned at Not on file Gender Identity Not on file Sexual Orientation Not on file documented as of this encounter Progress Notes * hSon Schneider MD - 03/13/2021 8:00 AM EDT Subjective: Patient ID: Monica Jaramillo is 65 y.o. Problem List: 1. Thymic carcinoma, stage IV A. Presented to the ED with increasing SOB, h/o atrial fibrillation on apixaban. CT was done with PE protocol and she was found to have an anterior mediastinal mass measuring 8.8 x 8.8 x 4.8 cm and a moderately large sized left pleural effusion with compression atelectasis. transferred to [facility] for further evaluation and workup and had [...] B. Biopsy of mediastinal mass 03/29 Path ([facility] review) - Mediastinum, mass, biopsy: 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 [facility] - CONSULT SLIDES FROM [facility]; [place], [place]: A. MEDIASTINUM, MASS, BIOPSY ([id number]; 03/22/2017): ? 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 ?Immunohistochemistry performed at the outside institution and reviewed at [facility] demonstrates the following staining profile in lesional cells: ? Positive - AE1/AE3, p40, PAX8, CD117, CD5(multifocal), CK7(scattered cells), synaptophysin, chromogranin ? Negative - CK20, TTF-1, GATA3, CD34 ? The immunohistochemical profile supports the above diagnosis. ? Ki67 (MIB-1) proliferation index performed at the referring institution and reviewed at [facility] is focally up to ~30%. NOTE: While diffuse synaptophysin and chromogranin expression is unusual for conventional thymic carcinoma, the overall histomorphology and immunophenotype is most in keeping with THYMIC SQUAMOUS CARCINOMA.?The extent of PAX8 and CD117 staining would be unusual for Nut carcinoma. B. MEDIASTINUM, ANTERIOR, 4.5 CM, ULTRASOUND GUIDED FINED NEEDLE ASPIRATION ([id number]; 03/22/17): The cytologic preparations were not reviewed [...] Second opinion with Dr. Roddy Vega in [place]. They reviewed the pathology and concurred they [...] therapy with pembrolizumab L. CT c/a/p 11/06/19 ([facility] second read) - [...] 6. Markedly distended gallbladder, similar to previous 2. H/o atrial fibrillation 3. HTN 4. [...] summarized above. This is a telephone encounter to f/u on lab tests ordered at the last visit for further evaluation of polcythemia.. Her Royce is in the hospital and not doing well and that has been very hard for her. Physically, she has been feeling pretty well. She has not had problems with SOB for quite a while, since prior thoracentesis. She does snore and says she doesn't sleep well in general. She hasnot been told that she stops breathing. 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 Fam Hx: No h/o cancer Review of Systems Constitutional: Negative for activity change, appetite change, fatigue, fever and unexpected weightchange. HENT: Negative. Respiratory: Negative for cough. Cardiovascular: Negative for chest pain and leg swelling. Gastrointestinal: Bowel habits - see above Genitourinary: Negative. Musculoskeletal: Negative. Skin: Negative. Neurological: Negative. Hematological: Negative. Psychiatric/Behavioral: Negative. All other systems reviewed and are negative. Objective: Physical Exam Neurological: Mental Status: She is alert. Labs: (03/05/21): WBC/ANC - 5.10/3119, Hgb/Hct - 17.6/51.8, Plts - 147,000. BUN/Cr - 18/1.4. Alb - 3.0, t bili - 1.2, mg - 1.9. TSH - 45.41 BCR/ABL p210 - Negative;JAK2 V617F - Negative; EPO - 66.5 (02/18/21) WBC/ANC - 5.08/2259, Hgb/Hct - 17.8/50, Plts - 151,000. BUN/Cr - 11/1.3. Na - 133, Mg - 1.4, Alb - 3.0, t bili - 1.2. Lytes and LFTs o/w unremarkable. LDH - 469 (313-618); TFTs (02/18/21): TSH - 82.14, FT4 - 0.8. Assessment and Plan: Monica Jaramillo is 65 yo, seen in f/u of thymic carcinoma, [...] also spoke with Dr. Shon Ramon at [facility] [place]. He agreed that gemcitabine plus capecitabine is [...] lenvatinib 24 mg PO daily on 08/18/20. She has tolerated this well. Restaging CT scan 10/28/20 - improvement in [...] had become polycythemic. The WBC and Plts are WNL. 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 I saw one case report of anEPO producing thymic carcinoma causing erythrocytosis and one paper that mentions an association ofpolycythemia with lenvatinib use, but I do not see it mentioned otherwise. For further evaluation, we have checked an EPO level, JAK2 and BCR/ABL PCR. The results are above. There is no evidence of MPD. 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 The reason for elevated EPO level is not clear. Her oxygen saturation has been in the high 90s. She does not smoke. Will check a carboxyhemoglobin level. If that is ok, possibilities include things like YESSENIA, HENRY, EPO producing tumor. If the carboxyhemoglobin level is ok, would plan a sleep study. I will have her continue the lenvatinib. She has a very elevated TSH. At the last visit, the synthroid dose was increased to 100 mcg/day. The TSH is still elevated but better and will have her continue the same dose. She and Royce received their second covid vaccine shot on 09/26/20 I provided care to the patient today via telephone call. The total time associated with this visit was 20 minutes. documented in this encounter Plan of Treatment Upcoming Encounters Date Type Department Care Team (Late st Contact Info) Description 02/24/2024 9:00 AM EDT Office Visit Hematology/Oncology at [address] [phone] Shon Schneider MD [facility] [place] [address] [place] [address] 02/24/2024 9:30 AM EDT Infusion Hematology Oncology at [address] [phone] 03/02/2024 11:00 AM EDT Office Visit Hematology/Oncology at [address] [phone] Shon Schneider MD [facility] [place] [address] [address] [place] [address] 03/02/2024 12:30 PM EDT Infusion Hematology Oncology at [address] [phone] 03/09/2024 10:00 AM EDT Office Visit Hematology/Oncology at [address] [phone] Shon Schneider MD [facility] [place] [address] Ciara Pitts APRN [address] [place] [address] DR HEMATOLOGY AND ONCOLOGY [place], [place] [id number] 03/09/2024 10:30 AM EDT Infusion Hematology Oncology at [address] [phone] documented as of this encounter Goals Goal Patient Goal Type Associated Problems Recent Progress Patient-Stated? Author DH Home Medication Compliance and Understanding Patient Facing Action Plan On track( 019 3:22 PM EST) No Ivana Vanegas, [facility] Note: Remain 95% or better adherent to chemotherapy without severe side effects as assessed by days supply and patient reported adverse events at each refill documented as of this encounter Visit Diagnoses Diagnosis Thymic carcinoma Malignant neoplasm of thymus Polycythemia Polycythemia vera Thymic carcinoma Malignant neoplasm of thymus documented in this encounter Care Teams Consumer Studies Professor Relationship Specialty Start Date End Date Jerzy Vidal MD [address] [place] [address] [place] [address] PCP - [facility] Medicine 12/04/18 documented as of this encounter
--- OUTSIDE RECORDS SUMMARY | 2024-02-24 01:19 | XMS_ITS | Encounter Summary ---
Author Organization [facility] Address [facility] [place] [address] Care Team Providers Care Slip Seat Coverer Name Role Phone Jerzy Vidal MD Primary Care Provider [phone] Encounter Details Date Type Department Care Team (Late st Contact Info) Description 04/17/2021 8:30 AM EDT TH Visit (TeleHealth) Hematology/Oncology at [address] [phone] Shon Coates MD [facility] [place] [address] Ivory Flynn APRN [address] [place] [address] DR HEMATOLOGY ONCOLOGY [place], [place] [phone] Thymic carcinoma; Hypothyroidism, acquired; Hyperbilirubinemia; Polycythemia; Hypomagnesemia Social History Tobacco Use Types Packs/Day Years Used Date Smoking Tobacco: Never Smokeless Tobacco: Never Sex and Gender Information Value Date Recorded Sex Assigned at Not on file Gender Identity Not on file Sexual Orientation Not on file documented as of this encounter Progress Notes * Shon Coates MD - 04/17/2021 8:30 AM EDT Subjective: Patient ID: Monica Jaramillo [...] effusion with compression atelectasis. transferred to [facility] for further evaluation and workup [...] Biopsy of mediastinal mass 03/29 Path ([facility] review) - Mediastinum, mass, biopsy: 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 [facility] - [facility]ULT [facility]ES FROM [facility]; [place], [place]: A. MEDIASTINUM, MASS, BIOPSY ([id number]; 03/22/2017): ? 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 ?Immunohistochemistry performed at the outside institution and reviewed at [facility] demonstrates the following staining profile in lesional cells: ? Positive - AE1/AE3, p40, PAX8, CD117, CD5(multifocal), CK7(scattered cells), synaptophysin, chromogranin ? Negative - CK20, TTF-1, GATA3, CD34 ? The immunohistochemical profile supports the above diagnosis. ? Ki67 (MIB-1) proliferation index performed at the referring institution and reviewed at [facility] is focally up to ~30%. NOTE: While diffuse synaptophysin and chromogranin expression is unusual for conventional thymic carcinoma, the overall histomorphology and immunophenotype is most in keeping with THYMIC SQUAMOUS CARCINOMA.?The extent of PAX8 and CD117 staining would be unusual for Nut carcinoma. B. MEDIASTINUM, ANTERIOR, 4.5 CM, ULTRASOUND GUIDED FINED NEEDLE ASPIRATION ([id number]; 03/22/17): The cytologic preparations were not reviewed [...] Second opinion with Dr. Roddy Vega in [place]. They reviewed the pathology and concurred they [...] with pembrolizumab L. CT c/a/p 11/06/19 ([facility] second read) - IMPRESSION 1. Worsening left-sided [...] atrial fibrillation 3. HTN 4. Echocardiogram 06/20/18 ([facility]) - Summary: 1. Preserved LV function [...] summarized above. This is a telephone encounter. Monica's Royce recently (03/30/21) after a relativley short illness and this has been very hard for her. 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 She promised Royce that she would take care of herself and she is doing the bestshe can. Her children are around and supportive. Physically, she says she is feeling well. No coughor SOB. No headaches, no vision changes and no other neurologic symptoms. She is eating well. With Royce's , she has lost her insurance coverage. She has Medicare A and B and is working with the [facility] [employer] on Aging on getting part D for prescription coverage. Her mouth is sensitive. Soc Hx: , lives in [place], [place] Tob - Never Etoh - rare [...] Neurological: Mental Status: She is alert. Labs: (04/15/21): WBC/ANCAMC - 4.02/2850/735 (15%), Hgb/Hct - 18.8/52.4, Plts - 126,000. BUN/Cr - 19/1.3. T bili - 1.7, alb - 3.2, Mg - 1.8.. Lytes and LFTs o/w unremarkable. Retic - 2.8; direct bili -0.44. ABG - 7.55/ pO2 - 94, pCO2 [...] (02/18/21): TSH - 82.14, FT4 - 0.8. (92/): TSH - 45.41 (04/15/21): TSH - 111.25; FT4 - 0.77 Assessment and Plan: Monica Jaramillo is 65 [...] pembrolizumab. I spoke with Dr. Vega at [facility]. There were no clinical trials [...] also spoke with Dr. Shon Ramon at [facility]. He agreed that gemcitabine [...] become polycythemic. The WBC and Plts are not elevated. The Hgb at the time of diagnosis of the thymic carcinoma in 2017 was WNL. For further evaluation, we have checked an [...] things like YESSENIA, HENRY, EPO producing tumor. She had an ABG with carboxyhemoglobin level, which is ok. I see one case report of erythr ocytosis associated with lenvatinib use. The mechanism is not made clear in the abstract and I am not able to access the full article. There are reports of other TKIs being associated with erythrocytosis although in at least one of those references, it does not appear that EPO elevation is the cause. Another possibility is that this the cancer is producing EPO. I will have her discontinue the lenvatinib and we will follow the CBC, EPO level and retic count. If things improve, would consider trying to restart the lenvatinib at lower dose. She has a very elevated TSH, increased from last visit. She is currently on synthroid at 100 mcg/day. Will have her increase to 125 mcg/day. This is likely secondary to the lenvatinib and may improveoff of therapy. We will see her in about two weeks with a recheck of the cbc, cmp, retic, EPO and TFTs. She received her second covid vaccine shot on 09/26/20 I provided care to the patient today via telephone call. The total time associated with this visit was 30 minutes. documented in this encounter Miscellaneous Notes * Addendum Note - Shon Coates MD - 04/17/2021 8:30 AM EDTAddended by: SHON COATES on: 04/17/2021 11:07 AM Modules accepted: Orders documented in this encounter Plan of Treatment Upcoming Encounters Date Type Department Care Team (Late st Contact Info) Description 02/24/2024 9:00 AM EDT Office Visit Hematology/Oncology at [address] [phone] Shon Coates MD [facility] [place] [address] HEMATOLOGY AND ONCOLOGY [place], [place] [address] 02/24/2024 9:30 AM EDT Infusion Hematology Oncology at [address] [phone] 03/02/2024 11:00 AM EDT Office Visit Hematology/Oncology at [address] [phone] Shon Coates MD [facility] [place] [address] [address] HEMATOLOGY AND ONCOLOGY [place], [place] [address] 03/02/2024 12:30 PM EDT Infusion Hematology Oncology at [address] [phone] 03/09/2024 10:00 AM EDT Office Visit Hematology/Oncology at [address] [phone] Shon Coates MD [facility] [place] [address] Ciara Pitts [address] HEMATOLOGY AND ONCOLOGY [place], [place] [address] 03/09/2024 10:30 AM EDT Infusion Hematology Oncology at [address] [phone] documented as of this encounter Goals Goal Patient Goal Type Associated Problems Recent Progress Patient-Stated? Author DH Home Medication Compliance and Understanding Patient Facing Action Plan On track( 019 3:22 PM EST) Ivana Ashraf, [facility] Note: Remain 95% or better adherent to chemotherapy without severe side effects as assessed by days supply and patient reported adverse events at each refill documented as of this encounter Visit Diagnoses Diagnosis Thymic carcinoma Malignant neoplasm of thymus Hypothyroidism, acquired Unspecified hypothyroidism Hyperbilirubinemia Jaundice, unspecified, not of Polycythemia Polycythemia vera Hypomagnesemia Disorders of magnesium metabolism Thymic carcinoma Malignant neoplasm of thymus documented in this encounter Care Teams Slip Seat Coverer Relationship Specialty Start Date End Date Jerzy Vidal MD [address] [place] [address] [place] [address] PCP - [facility] Medicine 12/04/18 documented as of this encounter
--- OUTSIDE RECORDS SUMMARY | 2024-02-24 01:19 | XMS_ITS | Encounter Summary ---
Author Organization [facility] [place] [address] Care Team Providers Care Wet Roaster Name Role Phone Jerzy Vidal MD Primary Care Provider [phone] Encounter Details Date Type Department Care Team (Late st Contact Info) Description 01/12/2021 Orders Only Hematology/Oncology at [address] [phone] HEMATOLOGY ONCOLOGY [place], [place] [phone] Social History Tobacco Use Types Packs/Day Years [...] AM EDT Office Visit Hematology/Oncology at [address] [phone] Shon Schneider MD [facility] [place] [address] HEMATOLOGY AND ONCOLOGY [place], [place] [id number] 02/24/2024 9:30 AM EDT Infusion Hematology Oncology at [address] [phone] 03/02/2024 11:00 AM EDT Office Visit Hematology/Oncology at [address] [phone] Shon Schneider MD [facility] [place] [address] [address] HEMATOLOGY AND ONCOLOGY [place], [place] [address] [phone] 03/02/2024 12:30 PM EDT Infusion Hematology Oncology at [address] [phone] 03/09/2024 10:00 AM EDT Office Visit Hematology/Oncology at [address] [phone] Shon Schneider MD [facility] [place] [address] [place] [address] 03/09/2024 10:30 AM EDT Infusion Hematology Oncology at [address] [phone] documented as of this encounter Goals Goal Patient Goal Type Associated Problems Recent Progress Patient-Stated? Author DH Home Medication Compliance and Understanding Patient Facing Action Plan On track( 019 3:22 PM EST) Ivana Ashraf, [facility] Note: Remain 95% or better adherent to chemotherapy without severe side effects as assessed by days supply and patient reported adverse events at each refill documented as of this encounter Visit Diagnoses Not on filedocumented in this encounter Care Teams Wet Roaster Relationship Specialty Start Date End Date Jerzy Vidal MD [address] [place] [address] [place] [address] PCP - [facility] Medicine 12/04/18 documented as of this encounter
--- OUTSIDE RECORDS SUMMARY | 2024-02-24 01:19 | XMS_ITS | Encounter Summary ---
Author Organization [facility] [place] [address] Care Team Providers Care Mobile Marketing Specialist Name Role Phone Jerzy Vidal MD Primary Care Provider [phone] Reason for Visit * Reason Comments Medication Refill Encounter Details Date Type Department Care Team (Late Contact Info) Description 06/11/2021 Refill Hematology/Oncology at [address] [phone] Shon Schneider MD [facility] [place] [address] Other depression Social History Tobacco Use Types Packs/Day Years [...] AM EDT Office Visit Hematology/Oncology at [address] [phone] Shon Schneider MD [facility] [place] [place] [address] Ciara Pitts APRN [address] [place] [address] DR HEMATOLOGY AND [place]Y [place] [id number] 02/24/2024 9:30 AM EDT Infusion Hematology Oncology at [address] [phone] 03/02/2024 11:00 AM EDT Office Visit Hematology/Oncology at [address] [phone] Shon Schneider MD [facility] [place] [address] HEMATOLOGY AND [place]Y [place], [place] [phone] 03/02/2024 12:30 PM EDT Infusion Hematology Oncology at [address] [phone] 03/09/2024 10:00 AM EDT Office Visit Hematology/Oncology at [address] [phone] Shon Schneider MD [facility] [place] [place] [address] [address] HEMATOLOGY [place] [address] 03/09/2024 10:30 AM EDT Infusion Hematology Oncology at [address] [phone] documented as of this encounter Goals Goal [...] as of this encounter Visit Diagnoses Diagnosis Other depression Thymic carcinoma Malignant neoplasm of thymus documented in this encounter Care Teams Mobile Marketing Specialist Relationship Specialty Start Date End Date Jerzy Vidal MD [address] [place] [address] [place] [address] PCP - [facility] Medicine 12/04/18 documented as of this encounter
--- OUTSIDE RECORDS SUMMARY | 2024-02-24 01:19 | XMS_ITS | Encounter Summary ---
Author Organization [facility] [place] [address] Care Team Providers Care Pension Adviser Name Role Phone Jerzy Vidal MD Primary Care Provider [phone] Encounter Details Date Type Department Care Team (Late st Contact Info) Description 05/15/2021 2:30 PM EST TH Visit (TeleHealth) Hematology/Oncology at [address] [phone] Ivory Flynn APRN [address] [place] [address] HEMATOLOGY ONCOLOGY [place], [place] [id number] Thymic carcinoma Social History Tobacco Use Types Packs/Day Years Used Date Smoking Tobacco: Never Smokeless Tobacco: Never Sex and Gender Information Value Date Recorded Sex Assigned at Not on file Gender Identity Not on file Sexual Orientation Not on file documented as of this encounter Progress Notes * Ivory Flynn APRN - 05/15/2021 11:30 AM EST Subjective: Patient ID: Monica Jaramillo is a [...] effusion with compression atelectasis. ?? transferred to [facility] for further evaluation and workup [...] B. Biopsy of mediastinal mass 03/29 Path ([facility] review) - Mediastinum, mass, biopsy: 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 ?? [facility] - CONSULT SLIDES FROM [facility]; [place], [place]: A. MEDIASTINUM, MASS, BIOPSY ([id number]; 03/22/2017): ? 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 ?Immunohistochemistry performed at the outside institution and reviewed at [facility] demonstrates the following staining profile in lesional cells: ? Positive - AE1/AE3, p40, PAX8, CD117, CD5(multifocal), CK7(scattered cells), synaptophysin, chromogranin ? Negative - CK20, TTF-1, GATA3, CD34 ? The immunohistochemical profile supports the above diagnosis. ? Ki67 (MIB-1) proliferation index performed at the referring institution and reviewed at [facility] is focally up to ~30%. NOTE: While diffuse synaptophysin and chromogranin expression is unusual for conventional thymic carcinoma, the overall histomorphology and immunophenotype is most in keeping with THYMIC SQUAMOUS CARCINOMA.?The extent of PAX8 and CD117 staining would be unusual for Nut carcinoma. B. MEDIASTINUM, ANTERIOR, 4.5 CM, ULTRASOUND GUIDED FINED NEEDLE ASPIRATION ([id number]; 03/22/17): The cytologic preparations were not reviewed [...] Second opinion with Dr. Roddy Vega in [place]. ??They reviewed the pathology and concurred they [...] therapy with pembrolizumab L. CT c/a/p 11/06/19 ([facility] second read) - IMPRESSION 1. ??Worsening left-sided [...] atrial fibrillation 3. HTN 4. Echocardiogram 06/20/18 ([facility]) - Summary: 1. Preserved LV [...] suggesting LV filling pressures. (LVEF 60-65%). ?? Started lenvatinib 24 mg PO daily on 08/18/20. ?? Restaging CT scan 10/28/20 - improvement in the pleural disease and pleural effusions. The most recent CT, done 02/10/21 showed a similar picture, ie stable mediastinal mass and epicardial LN with decrease in pleural effusion. She will continue the lenavtinib at the same dose, 24 mg per day and we will see her in 4 weeks. ?? When seen on 02/20/21, I was concerned that she had become polycythemic. The WBC and Plts are not elevated. 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 For further evaluation, we checked an EPO level, JAK2 and BCR/ABL PCR. The results are above. There was no evidence ofMPD. 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 The reason for elevated EPO level is not clear. Her oxygen saturation has been in the high 90s. She does not smoke. Will checka carboxyhemoglobin level. If that is ok, possibilities include things like YESSENIA, HENRY, EPO producingtumor. She had an ABG with carboxyhemoglobin level, which is ok. I see one case report of erythrocyt osis associated with lenvatinib use. The mechanism is not made clear in the abstract and I am not able to access the full article. There are reports of other TKIs being associated with erythrocytosisalthough in at least one of those references, it does not appear that EPO elevation is the cause. Another possibility is that this the cancer is producing EPO. ?? We had her discontinue the lenvatinib on 05/01/21. Recheck of the CBC showed normalization of the Hgb. The lenvatinib was restarted at 14 mg per day on 05/02/21. She is tolerating this well. We have rechecked an EPO level and that is pending (was drawn a few days after she restarted the lenvatinib). ?? I was concerned last week about her renal function. That has normalized and was likely prerenal. The FT4 was toward the upper end of normal at the time of the last visit. She continued the synthroid at 125 mcg/day. The TFTs were not rechecked. The hypothyroidism is felt likely to have been related to the lenvatinib. ?? She will continue the same dose of lenvatinib, 14 mg per day. She is gong to increase the magnesiumback to what she had been taking, 2 bid. We will recheck this as well as the cbc, cmp and TFTs nextweek. If she is continuing to do well We talked about a restaging evaluation. With everything that has happened, she would like to wait until June. ?? We had increased the synthroid dose to 125 mcg/day. The TSH was not done. The FT4 is toward the upper end of normal. For now, will have her continue the same dose and recheck. Will continue to follow. ?? She received her second covid vaccine shot on 09/26/20 ? 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 ?? Fam Hx: No h/o cancer INTERVAL HPI PHONE VISIT 05/15/21 Monica Jaramillo is a 64 yo female with stage IV thymic carcinoma diagnosed in 03/29. (Refer to extensive history summarized above.) Monica returns to the [facility] oncology clinic today for clinic visit for evaluation of ongoing Lenvatinib therapy. Monica has been dealing with the recent loss of her who 03/30/21. Monica started Lenvatinib 24 mg po QD on 08/15/20. After developing erythrocytosis it was discontinued briefly and reduced to 14mg daily. She has beenon this dose since 05/02/21. She is doing okay today. She has good days and bad days when it comes to missing her . Her spirits are good today. She reports she is eating better and has gained 9 pounds. Monica denies any bowel difficulty and is not needing to use either anitdiarrheals or laxatives. She is not having any nausea. She says her breathing is good. She denies shortness of breath or new cough. In fact, she says lately she has been able to sleep on her back and not feel like she is suffocating, which is some thing she has not been able to do for a long time. She denies numbness or tingling. No fevers or chills. She reports a chafing rash on the inside of her thighs that is new. She is not sure this may be related to winter and cold. She continues on Levothyroxine 125 mcgs po QD. She is sending in some paperwork to us today for Lenvatinib assistance. Allergies Allergen Reactions ??? Carboplatin ??? Penicillins Hives ??? Pollen Extracts Other (See Comments) rhinorrhea Current Medications ??? aMILoride (Midamor) 5 mg Tablet ??? lenvatinib (Lenvima) 14 mg/day(10 mg x 1-4 mg x 1) capsule ??? aMILoride (Midamor) 5 mg Tablet ??? levothyroxine (Synthroid) 25 mcg Tablet ??? levothyroxine (Synthroid) 100 mcg Tablet ??? buPROPion SR (Wellbutrin SR) 150 mg tablet sustained-release 12 hr ??? ondansetron (Zofran) 8 mg Tablet ??? prochlorperazine (Compazine) 10 mg Tablet ??? fluticasone propionate (FLOVENT) 44 mcg/actuation HFA Aerosol Inhaler ??? ALBUTEROL INHL ??? magnesium oxide (MAG-OX) [...] Not on file Review of Systems Constitutional: Negative for activity change, appetite change, fatigue and fever. HENT: Negative for congestion, mouth sores, nosebleeds and trouble swallowing. Center and tip of tongue more sensitive. Eyes: Negative. Respiratory: Negative for cough, chest tightness and shortness of breath. Cardiovascular: Negative for chest pain and palpitations. Gastrointestinal: Negative for abdominal distention, constipation, diarrhea, nausea and vomiting. Endocrine: Feels cold more often Genitourinary: Negative. Musculoskeletal: Positive for arthralgias. Left knee intermittent pain and instability. Skin: Positive for rash. Negative for color change. Neurological: Negative for dizziness, numbness and headaches. Hematological: Negative. Psychiatric/Behavioral: The patient is not nervous/anxious. Grief waxes and wanes (NO OBJECTIVE, PHONE VISIT. ) Objective: Physical Exam Vitals reviewed. Constitutional: General: She is not in acute distress. Appearance: Normal appearance. HENT: Mouth/Throat: Mouth: Mucous membranes are moist. Pharynx: Oropharynx is clear. No posterior oropharyngeal erythema. Comments: No evidence of mucositis or thrush Eyes: General: Right eye: No discharge. Left eye: No discharge. Conjunctiva/sclera: Conjunctivae normal. Cardiovascular: Rate and Rhythm: Normal rate and regular rhythm. Heart sounds: Normal heart sounds. Pulmonary: Effort: No respiratory distress. Breath sounds: No wheezing or rales. Comments: Breath sound present in all kim but diminished bilaterally in lower kim. Chest: Breasts: Right: No supraclavicular adenopathy. Left: No supraclavicular adenopathy. Abdominal: Tenderness: There is no abdominal tenderness. [...] to person, place, and time. Gait: Gait abnormal. Comments: Uses walker for support Psychiatric: Mood and Affect: Mood normal. Behavior: Behavior normal. Thought Content: Thought content normal. Judgment: Judgment normal. There were no vitals taken for this visit. LABS 05/14/21 WBC 5.4; ANC 3.50; H/H 14.1/41/8; PLT 161; BUN 11; CREAT 0.7; lytes normal. LFTs normal; MAG 1.4; TSH 22.10; FREE T4 1.11 RECENT IMAGING 10/29/20- CT C/A/P - showed [...] history summarized above.) Monica returns to the [facility] oncology clinic today for clinic visit for evaluation of ongoing Lenvatinib therapy. Monica has been dealing with the recent loss of her who 03/30/21. CBC, CMP, TSH, FREET4 and MAG are reviewed with Monica and Royce today and support ongoing treatment. Magnesium stable. FreeT4 normal today, TSH high but much reduced from 111 on 04/15/21. Monica is doing well on lower Lenvatinib. Erythrocytosis stable. She is managing well enough following the of her in . Plan:. Continue Levatinib - 14 mg po QD. Continue levothyroxine at 125 mcs qd. Recheck labs about 06/08, visit with Dr. Schneider on 06/10 (phone or in person) documented in this encounter Plan of Treatment Upcoming Encounters Date Type Department Care Team (Late st Contact Info) Description 02/24/2024 9:00 AM EDT Office Visit Hematology/Oncology at [address] [phone] Shon Schneider MD [facility] [place] [address] Ciara Pitts APRN [address] [place] [address] DR HEMATOLOGY [place] [address] 02/24/2024 9:30 AM EDT Infusion Hematology Oncology at [address] [phone] 03/02/2024 11:00 AM EDT Office Visit Hematology/Oncology at [address] [phone] Shon Schneider MD [facility] [place] [address] Ciara Pitts [employer] [address] [place] [address] DR HEMATOLOGY [place] [address] 03/02/2024 12:30 PM EDT Infusion Hematology Oncology at [address] [phone] 03/09/2024 10:00 AM EDT Office Visit Hematology/Oncology at [address] [phone] Shon Schneider MD [facility] [place] [address] Ciara Pitts APRN [address] [place] [address] DR HEMATOLOGY [place] [address] 03/09/2024 10:30 AM EDT Infusion Hematology Oncology at [address] [phone] documented as of this encounter Goals Goal Patient Goal Type Associated Problems Recent Progress Patient-Stated? Author DH Home Medication Compliance and Understanding Patient Facing Action Plan On track( 019 3:22 PM EST) Ivana Ashraf, [facility] Note: Remain 95% or better adherent to chemotherapy without severe side effects as assessed by days supply and patient reported adverse events at each refill documented as of this encounter Visit Diagnoses Diagnosis 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 documented in this encounter Care Teams Pension Adviser Relationship Specialty Start Date End Date Jerzy Vidal MD [address] [place] [address] [place] [address] PCP - [facility] Medicine 12/04/18 documented as of this encounter
--- OUTSIDE RECORDS SUMMARY | 2024-02-24 01:19 | XMS_ITS | Encounter Summary ---
Author Organization [facility] Address [facility] [place] [address] Care Team Providers Care Sheet Metal Production Worker Name Role Phone Jerzy Vidal MD Primary Care Provider [phone] Encounter Details Date Type Department Care Team (Late st Contact Info) Description 12/09/2020 Orders Only Hematology [place] [address] Gabby Delgadillo Social History Tobacco Use Types [...] AM EDT Office Visit Hematology/Oncology at [address] [phone] Shon Schneider MD [facility] [place] [address] Ciara Pitts APRN [address] [place] [address] DR HEMATOLOGY AND ONCOLOGY [place], [place] [address] 02/24/2024 9:30 AM EDT Infusion Hematology Oncology at [address] [phone] 03/02/2024 11:00 AM EDT Office Visit Hematology/Oncology at [address] [phone] Shon Schneider MD [facility] [place] [address] HEMATOLOGY AND ONCOLOGY [place], [place] [phone] 03/02/2024 12:30 PM EDT Infusion Hematology Oncology at [address] [phone] 03/09/2024 10:00 AM EDT Office Visit Hematology/Oncology at [address] [phone] Shon Schneider MD [facility] [place] [place] [address] [address] HEMATOLOGY AND ONCOLOGY [place], [place] [phone] 03/09/2024 10:30 AM EDT Infusion Hematology Oncology at [address] [phone] documented as of this encounter Goals Goal [...] on filedocumented in this encounter Care Teams Sheet Metal Production Worker Relationship Specialty Start Date End Date Jerzy Vidal MD [address] [place] [address] [place] [address] PCP - [facility] Medicine 12/04/18 documented as of this encounter
--- OUTSIDE RECORDS SUMMARY | 2024-02-24 01:19 | XMS_ITS | Encounter Summary ---
Author Organization [facility] [place] [address] Care Team Providers Care Game Artist Name Role Phone Jerzy Vidal MD Primary Care Provider [phone] Encounter Details Date Type Department Care Team (Latest Contact Info) Description 07/17/2021 2:30 PM EST TH Visit (TeleHealth) Hematology/Oncology at [address] [phone] Shon Schneider MD [facility] [address] Hypomagnesemia; Hypothyroidism, unspecified type; Thymic carcinoma; Polycythemia Social History Tobacco Use Types Packs/Day Years Used Date Smoking Tobacco: Never Smokeless Tobacco: Never Sex and Gender Information Value Date Recorded Sex Assigned at Not on file Gender Identity Not on file Sexual Orientation Not on file documented as of this encounter Progress Notes * Shon Schneider MD - 07/17/2021 2:30 PM EST Subjective: Patient ID: Monica Jaramillo [...] - CONSULT SLIDES FROM [facility]; [place], [place]: A. MEDIASTINUM, MASS, BIOPSY ([id number]; 03/22/2017): ? 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 ?Immunohistochemistry performed at the outside institution and reviewed at [facility] demonstrates the following staining profile in lesional cells: ? Positive - AE1/AE3, p40, PAX8, CD117, CD5(multifocal), CK7(scattered cells), synaptophysin, chromogranin ? Negative - CK20, TTF-1, GATA3, CD34 ? The immunohistochemical profile supports the above diagnosis. ? Ki67 (MIB-1) proliferation index performed at the referring institution and reviewed at [facility] is focally up to ~30%. NOTE: While diffuse synaptophysin and chromogranin expression is unusual for conventional thymic carcinoma, the overall histomorphology and immunophenotype is most in keeping with THYMIC SQUAMOUS CARCINOMA.?The extent of PAX8 and CD117 staining would be unusual for Nut carcinoma. B. MEDIASTINUM, ANTERIOR, 4.5 CM, ULTRASOUND GUIDED FINED NEEDLE ASPIRATION ([id number]; 03/22/17): The cytologic preparations were not reviewed [...] Second opinion with Dr. Roddy Vega in [place]. They reviewed the pathology and concurred they [...] apparent wall motion abnormalities. Normal RV function. KAIT - global peak systolic strain is -14.3%. [...] thymic carcinoma. The history is summarized above. Due to hazardous travel conditions related to the weather, today's visit was changed to a telephoneencounter. She is feeling pretty well. She is tolerating the lenvatinib well. She is eating well. Her weight is lower. She had a difficult time around the new year. The idea fo facing a new without Royce was very hard for her. Her appetite was lower and she lost interest in cooking and other things. She says she has a lot of support and with that help, she was able to pull out of that and is doing better, including eating better, now. Her energy level and strength seem to be pretty good. She saysshe feels stronger than she has for some time. She took her own VS today for this visit: BP - 110/68, HR - 72, O2 sat - 100%, Weight - 197#. Soc Hx: , lives in [place], [place] Tob - Never Etoh - rare [...] Neurological: Mental Status: She is alert. Labs: (07/14/21): WBC/ANC - 4., Hgb/Hct - 15.2/44.8, Plts - 129,000. BUN/Cr - 20/0.9. Na - 134,K - 3.4, Alb - 2.8, Mg - [...] pembrolizumab. I spoke with Dr. Vega at [facility]. There were no clinical trials available there. [...] also spoke with Dr. Shon Ramon at [facility] [place]. He agreed that gemcitabine plus capecitabine is [...] call. The total time associated with this visit,including review of the CT images, was 30 minutes. documented in this encounter Plan of Treatment Upcoming Encounters Date Type Department Care Team (Late st Contact Info) Description 02/24/2024 9:00 AM EDT Office Visit Hematology/Oncology at [address] [phone] Shon Schneider MD [facility] [place] [address] Ciara Pitts APRN [address] [place] [address] DR [place] [address] 02/24/2024 9:30 AM EDT Infusion Hematology Oncology at [address] [phone] 03/02/2024 11:00 AM EDT Office Visit Hematology/Oncology at [address] [phone] Shon Schneider MD [facility] [place] [place] [address] [address] HEMATOLOGY AND ONCOLOGY [place], [place] [address] 03/02/2024 12:30 PM EDT Infusion Hematology Oncology at [address] [phone] 03/09/2024 10:00 AM EDT Office Visit Hematology/Oncology at [address] [phone] Shon Schneider MD [facility] [place] [address] [address] HEMATOLOGY AND ONCOLOGY [place], [place] [address] 03/09/2024 10:30 AM EDT Infusion Hematology Oncology at [address] [phone] documented as of this encounter Goals Goal Patient Goal Type Associated Problems Recent Progress Patient-Stated? Author DH Home Medication Compliance and Understanding Patient Facing Action Plan On track( 019 3:22 PM EST) Ivana Ashraf, [facility] Note: Remain 95% or better adherent to chemotherapy without severe side effects as assessed by days supply and patient reported adverse events at each refill documented as of this encounter Visit Diagnoses Diagnosis Hypomagnesemia Disorders of magnesium metabolism Hypothyroidism, unspecified type Thymic carcinoma Malignant neoplasm of thymus Polycythemia Polycythemia vera Thymic carcinoma Malignant neoplasm of thymus documented in this encounter Care Teams Game Artist Relationship Specialty Start Date End Date Jerzy Vidal MD [address] [place] [address] [place] [address] PCP - [facility] Medicine 12/04/18 documented as of this encounter
--- OUTSIDE RECORDS SUMMARY | 2024-02-24 01:19 | XMS_ITS | Encounter Summary ---
Author Organization [facility] [place] [address] Care Team Providers Care Quality Control Supervisor Name Role Phone Jerzy Vidal MD Primary Care Provider [phone] Reason for Visit * Reason Comments IV Medication IV hydration Encounter Details Date Type Department Care Team ([facility] Contact Info) Description 12/05/2020 3:00 PM EDT Infusion Hematology Oncology at [address] [phone] Thymic carcinoma Social History Tobacco Use Types Packs/Day Years Used Date Smoking Tobacco: Never Smokeless Tobacco: Never Sex and Gender Information Value Date Recorded Sex Assigned at Not on file Gender Identity Not on file Sexual Orientation Not on file documented as of this encounter Progress Notes * Ute Chacon RN - 12/05/2020 3:00 PM EDT INFUSION THERAPY ADMINISTRATION NOTES TIME TREATMENT STARTED: 1500 TIME TREATMENT ENDED: 1505 DIAGNOSIS: Thymic cancer REASON FOR VISIT: MEDIPORT FLUSH ONLY IV ACCESS: Mediport GAUGE: 19G BLOOD RETURN: yes ANY S/S OF INFECTION/EXTRAVASATIONS: no signs of IV complications observed IV FLUSHED WITH: 20cc NS and 500 units Heparin IV DISCONTINUED: yes ASSESSMENT: Patient tolerated treatment well. PLAN: Return to clinic per routine. documented in this encounter Plan of Treatment Upcoming Encounters Date Type Department Care Team ([facility] Contact Info) Description 02/24/2024 9:00 AM EDT Office Visit Hematology/Oncology at [address] [phone] 64 Shon Schneider MD [facility] [place] [address] [address] HEMATOLOGY AND ONCOLOGY [place], [place] [address] [phone] 02/24/2024 9:30 AM EDT Infusion Hematology Oncology at [address] [phone] 03/02/2024 11:00 AM EDT Office Visit Hematology/Oncology at [address] [phone] 59 Shon Schneider MD [facility] [place] [address] [address] HEMATOLOGY AND ONCOLOGY [place], [place] [address] 03/02/2024 12:30 PM EDT Infusion Hematology Oncology at [address] [phone] 03/09/2024 10:00 AM EDT Office Visit Hematology/Oncology at [address] [phone] Shon Schneider MD [facility] [place] [address] [address] HEMATOLOGY AND ONCOLOGY [place], [place] [address] [phone] 03/09/2024 10:30 AM EDT Infusion Hematology Oncology at [address] [phone] documented as of this encounter Goals Goal Patient Goal Type Associated Problems Recent Progress Patient-Stated? Author DH Home Medication Compliance and Understanding Patient Facing Action Plan On track( 019 3:22 PM EST) Ivana Ashraf, [facility] Note: Remain 95% or better adherent to chemotherapy without severe side effects as assessed by days supply and patient reported adverse events at each refill documented as of this encounter Visit Diagnoses Diagnosis 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 documented in this encounter Care Teams Quality Control Supervisor Relationship Specialty Start Date End Date Jerzy Vidal MD [address] [place] [address] [place] [address] PCP - [facility] Medicine 12/04/18 documented as of this encounter
--- OUTSIDE RECORDS SUMMARY | 2024-02-24 01:19 | XMS_ITS | Encounter Summary ---
Author Organization [facility] [place] [address] Care Team Providers Care Emergency Vehicle Operator Name Role Phone Jerzy Vidal MD Primary Care Provider [phone] Reason for Visit * Reason Comments Medication Refill Encounter Details Date Type Department Care Team (Late Contact Info) Description 03/22/2021 Refill Hematology/Oncology at [address] [phone] [address] [place] [address] Thymic carcinoma; Dyspnea, unspecified type Social History Tobacco Use Types [...] AM EDT Office Visit Hematology/Oncology at [address] [phone] Shon Schneider MD [facility] [place] [address] [address] HEMATOLOGY AND ONCOLOGY [place], [place] [id number] 02/24/2024 9:30 AM EDT Infusion Hematology Oncology at [address] [phone] 03/02/2024 11:00 AM EDT Office Visit Hematology/Oncology at [address] [phone] 43 Shon Schneider MD [facility] [place] [address] [address] HEMATOLOGY AND ONCOLOGY [place], [place] [id number] 03/02/2024 12:30 PM EDT Infusion Hematology Oncology at [address] [phone] 03/09/2024 10:00 AM EDT Office Visit Hematology/Oncology at [address] [phone] Shon Schneider MD [facility] [place] [address] [address] [place] [address] 03/09/2024 10:30 AM EDT Infusion Hematology Oncology at [address] [phone] documented as of this encounter Goals Goal Patient Goal Type Associated Problems Recent Progress Patient-Stated? Author DH Home Medication Compliance and Understanding Patient Facing Action Plan On track( 019 3:22 PM EST) Ivana Ashraf, [facility] Note: Remain 95% or better adherent to chemotherapy without severe side effects as assessed by days supply and patient reported adverse events at each refill documented as of this encounter Visit Diagnoses Diagnosis Thymic carcinoma Malignant neoplasm of thymus Dyspnea, unspecified type Thymic carcinoma Malignant neoplasm of thymus documented in this encounter Care Teams Emergency Vehicle Operator Relationship Specialty Start Date End Date Jerzy Vidal MD [address] [place] [address] [place] [address] PCP - [facility] Medicine 12/04/18 documented as of this encounter
--- OUTSIDE RECORDS SUMMARY | 2024-02-24 01:19 | XMS_ITS | Encounter Summary ---
Author Organization [facility] Address [facility] [place] [address] Care Team Providers Care Subeditor Name Role Phone Jerzy Vidal MD Primary Care Provider [phone] Encounter Details Date Type Department Care Team (Late st Contact Info) Description 12/05/2020 2:30 PM EDT Office Visit Hematology/Oncology at [address] [phone] Shon Schneider MD [facility] [place] [address] Ivory Flynn STRATEGIC ACCOUNT MANAGER [address] [place] [address] DR [facility]ATOLOGY [facility]Y [facility] [place], [place] [id number] Thymic carcinoma; Hypothyroidism, acquired; Drug-induced nausea and vomiting; Dyspnea, unspecified type Social History Tobacco Use Types Packs/Day Years Used Date Smoking Tobacco: Never Smokeless Tobacco: Never Sex and Gender Information Value Date Recorded Sex Assigned at Not on file Gender Identity Not on file Sexual Orientation Not on file documented as of this encounter Last Filed Vital Signs Vital Sign Reading Time Taken Comments Blood Pressure 125/79 12/05/2020 2:41 PM EDT Pulse 70 12/05/2020 2:41 PM EDT Temperature 36.3 ??C (97.3 ??F) 12/05/2020 2:41 PM ED T Respiratory Rate 20 12/05/2020 2:41 PM EDT Oxygen Saturation 99% 12/05/2020 2:41 PM EDT Inhaled Oxygen Concentration - - Weight 110 kg (242 lb 9.6 oz) 12/05/2020 2:41 PM EDT Height 175.3 cm (5' 9.02) 12/05/2020 2:41 PM ED T Body Mass Index 35.81 12/05/2020 2:41 PM EDT documented in this encounter Progress Notes * Ivory Flynn APRN - 12/05/2020 2:30 PM EDT Subjective: Patient ID: Monica [...] effusion with compression atelectasis. ?? transferred to [facility] for further evaluation and workup and had [...] CONSULT SLIDES FROM [facility]; [place], [place]: A. MEDIASTINUM, MASS, BIOPSY ([id number]; 03/22/2017): ? 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 ?Immunohistochemistry performed at the outside institution and reviewed at [facility] demonstrates the following staining profile in lesional cells: ? Positive - AE1/AE3, p40, PAX8, CD117, CD5(multifocal), CK7(scattered cells), synaptophysin, chromogranin ? Negative - CK20, TTF-1, GATA3, CD34 ? The immunohistochemical profile supports the above diagnosis. ? Ki67 (MIB-1) proliferation index performed at the referring institution and reviewed at [facility] is focally up to ~30%. NOTE: While diffuse synaptophysin and chromogranin expression is unusual for conventional thymic carcinoma, the overall histomorphology and immunophenotype is most in keeping with THYMIC SQUAMOUS CARCINOMA.?The extent of PAX8 and CD117 staining would be unusual for Nut carcinoma. B. MEDIASTINUM, ANTERIOR, 4.5 CM, ULTRASOUND GUIDED FINED NEEDLE ASPIRATION ([id number]; 03/22/17): The cytologic preparations were not reviewed [...] Second opinion with Dr. Roddy Vega in [place]. ??They reviewed the pathology and concurred they [...] – [place]MON[place] second read) - IMPRESSION 1. ??Worsening left-sided [...] atrial fibrillation 3. HTN 4. Echocardiogram 06/20/18 ([facility]) - Summary: 1. Preserved [...] 60-65%). ?? 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 ?? Fam Hx: No h/o cancer INTERVAL HPI 12/05/20 Monica Jaramillo is a 64 yo female with stage IV thymic carcinoma diagnosed in 03/29. (Refer to extensive history summarized above.) Monica returns to the [facility] oncology clinic today accompanied by her Royce for clinic visit for evaluation of ongoing Lenvatinib therapy. Monica was seen by surgery at [facility] 08/19/20 and had a thoracentisis of a left pleural effusion. She reports about 600cc of fluid was removed. She further notes she had a significant loss of fluid systemically for several days afterward. She reports voiding frequently, and today has maintained a 13 pound fluid weight loss. Monica started Lenvatinib 24 mg po QD on 08/15/20. Monica says she is feeling pretty well today. She [place] Roy[place]. She felt her energy was good. She did a lot of walking and was encouraged that she did not have shortness of breath. She ate well there, and her left knee held up without buckling. Monica does notice the Lenvatinib causes intermittent nausea. Usually a day or two at the most. She uses Compazine if needed. She is moving her bowels well. She is compliant with her fluid intake. No mouth sores. Monica denies new cough or chest pain. She does not have any new rash or itching. She has been taking Magnesium 400 mg bid. She tolerated this well. Her magnesium today is noted to be 1.2. I have asked he to increase it to tid. Allergies Allergen Reactions ??? Carboplatin ??? Penicillins Hives ??? Pollen Extracts Other (See Comments) rhinorrhea Current Medications ??? ondansetron (Zofran) 8 mg Tablet ??? [...] 5 mg Tablet ??? multivitamin (THERAGRAN) Tablet Review of Systems Constitutional: Negative for activity change, appetite change, fatigue and fever. HENT: Negative for congestion, mouth sores, nosebleeds and trouble swallowing. Eyes: Negative. Extremely dry Respiratory: Negative for cough and shortness of breath. Cardiovascular: Negative for chest pain and palpitations. Gastrointestinal: Positive for nausea. Negative for abdominal distention, constipation and diarrhea. Genitourinary: Negative. Musculoskeletal: Positive for arthralgias. Left knee intermittent pain and instability. Skin: Negative for color change and rash. Neurological: Negative for dizziness, numbness and headaches. Hematological: Negative. Psychiatric/Behavioral: Negative. Objective: Physical Exam Constitutional: General: She is not in acute distress. Appearance: Normal appearance. HENT: Mouth/Throat: Mouth: Mucous membranes are moist. Pharynx: Oropharynx is clear. No posterior oropharyngeal erythema. Eyes: General: Right eye: No discharge. Left eye: No discharge. Cardiovascular: Rate and Rhythm: Normal rate and [...] normal. Psychiatric: Mood and Affect: Mood normal. Thought Content: Thought content normal. Judgment: Judgment normal. BP 125/79 (Patient Position: Sitting) Pulse 70 Temp 36.3 ??C (97.3 ??F) (Temporal) Resp 20 Ht 175.3 cm (5' 9.02) Wt 110 kg (242 lb 9.6 oz) SpO2 99% BMI 35.81 kg/m?? LABS 12/04/20 WBC 4.9; ANC 2.77; H/H [...] history summarized above.) Monica returns to the [facility] oncology clinic accompanied by her Royce for evaluation of daily Levatinib 24mg po QD which she started 08/18/20. CBC, CMPSH and MAG are reviewed with Monica and Royce today and support ongoing treatment. On 50 mcgs Levothyroxine. Free T4 normal. MAG 1.2 She is experiencing nausea about one day a week as main toxicity Plan:. Continue Levatinib - 24 mg po QD. Antiemetics as needed for nausea. Continue levothyroxine 50 mcgs po qd. Increase oral magnesium to 400 mg tid. ADDENDUM FOR Tuesday12/08/20 Monica called and asked about receiving IVPB Magnesium at [facility]. I sent an order for 2 gramsIVPB X1 today. documented in this encounter Plan of Treatment Upcoming Encounters Date Type Department Care Team (Late st Contact Info) Description 02/24/2024 9:00 AM EDT Office Visit Hematology/Oncology at [address] [phone] Shon Schneider MD [facility] [place] [address] Ciara Pitts, [address] HEMATOLOGY [place] [address] 02/24/2024 9:30 AM EDT Infusion Hematology Oncology at [address] [phone] 03/02/2024 11:00 AM EDT Office Visit Hematology/Oncology at [address] [phone] Shon Schneider MD [facility] [place] [address] Ciara Pitts, [address] HEMATOLOGY AND [place], [place] [address] 03/02/2024 12:30 PM EDT Infusion Hematology Oncology at [address] [phone] 03/09/2024 10:00 AM EDT Office Visit Hematology/Oncology at [address] [phone] Shon Schneider MD [facility] [place] [address] Ciara Pitts [address] HEMATOLOGY [facility] ONCOL[facility]Y CENTER [place], [place] [address] 03/09/2024 10:30 AM EDT Infusion Hematology Oncology at [address] [phone] documented as of this encounter Goals Goal [...] neoplasm of thymus Hypothyroidism, acquired Unspecified hypothyroidism Drug-induced nausea and vomiting Nausea with vomiting Dyspnea, unspecified type Thymic carcinoma Malignant neoplasm of thymus documented in this encounter Care Teams Subeditor Relationship Specialty Start Date End Date Jerzy Vidal MD [address] [place] [address] [place] [address] PCP - [facility] Medicine 12/04/18 documented as of this encounter
--- OUTSIDE RECORDS SUMMARY | 2024-02-24 01:19 | XMS_ITS | Encounter Summary ---
Author Organization [facility] [place] [address] Care Team Providers Care Set Up Worker Name Role Phone Jerzy Vidal MD Primary Care Provider [phone] Reason for Visit * Reason Comments Medication Refill Encounter Details Date Type Department Care Team (Late Contact Info) Description 01/23/2021 Refill Hematology/Oncology at [address] [phone] Shon Schneider MD [facility] [place] [address] Hypomagnesemia Social History Tobacco Use Types Packs/Day [...] AM EDT Office Visit Hematology/Oncology at [address] [phone] Shon Schneider MD [facility] [place] [address] Ciara Pitts APRN [address] [place] [address] DR HEMATOLOGY AND ONCOLOGY [place], [place] [id number] 02/24/2024 9:30 AM EDT Infusion Hematology Oncology at [address] [phone] 03/02/2024 11:00 AM EDT Office Visit Hematology/Oncology at [address] [phone] Shon Schneider MD [facility] [place] [address] [address] HEMATOLOGY AND ONCOLOGY [place], [place] [id number] 03/02/2024 12:30 PM EDT Infusion Hematology Oncology at [address] [phone] 03/09/2024 10:00 AM EDT Office Visit Hematology/Oncology at [address] [phone] Shon Schneider MD [facility] [place] [address] [address] HEMATOLOGY AND ONCOLOGY [place], [place] [address] 03/09/2024 10:30 AM EDT Infusion Hematology Oncology at [address] [phone] documented as of this encounter Goals Goal Patient Goal Type Associated Problems Recent Progress Patient-Stated? Author DH Home Medication Compliance and Understanding Patient Facing Action Plan On track( 019 3:22 PM EST) Ivana Ashraf, [facility] Note: Remain 95% or better adherent to chemotherapy without severe side effects as assessed by days supply and patient reported adverse events at each refill documented as of this encounter Visit Diagnoses Diagnosis Hypomagnesemia Disorders of magnesium metabolism Thymic carcinoma Malignant neoplasm of thymus documented in this encounter Care Teams Set Up Worker Relationship Specialty Start Date End Date Jerzy Vidal MD [address] [place] [address] [place] [address] PCP - [facility] Medicine 12/04/18 documented as of this encounter
--- OUTSIDE RECORDS SUMMARY | 2024-02-24 01:19 | XMS_ITS | Encounter Summary ---
Author Organization [facility] Address [facility] [place] [address] Care Team Providers Care Sap Hana Architect Name Role Phone Jerzy Vidal MD Primary Care Provider [phone] Reason for Visit * Reason Onset Date Comments Medication Refill 03/02/2021 Encounter Details Date Type Department Care Team (Late st Contact Info) Description 03/02/2021 Telephone Hematology/Oncology at [address] [phone] Brionna Andrade RN Medication Refill Social History Tobacco Use Types Packs/Day Years Used Date Smoking Tobacco: Never Smokeless Tobacco: Never Sex and Gender Information Value Date Recorded Sex Assigned at Not on file Gender Identity Not on file Sexual Orientation Not on file documented as of this encounter Miscellaneous Notes * Telephone Encounter - Brionna Andrade RN - 03/02/2021 2:17 PM EDT Oral Chemotherapy Check Note 03/02/2021 Monica Jaramillo, 1955 Prescriptions for oral chemotherapy were reviewed as follows: Oral Chemotherapy Order lenvima: Order details: ?? Dose: 24 mg ?? Route: oral ?? Quantity to be dispensed #: 90 cap (60 10 mg caps, 30 4 mg caps) ?? Number of refills: 5 ?? Instructions: TAKE 2 CAPSULES OF 10 MG WITH 1 CAPSULE OF 4 MG ONCE DAILY. TOTAL DAILY DOSE 24 MG. CALL CLINIC BEFORE STARTING MEDICATION. ?? Cycle number and length: ongoing ?? Start date: Already on Plan of care compared to information in the medical record, including note from provider on 03/02/21(date). The prescription was found To be complete and accurate. It was e-prescribed to [facility] pharmacy. documented in this encounter Plan of Treatment Upcoming Encounters Date Type Department Care Team (Late st Contact Info) Description 02/24/2024 9:00 AM EDT Office Visit Hematology/Oncology at [address] [phone] Shon Schneider MD [facility] [place] [address] HEMATOLOGY [place] [address] 02/24/2024 9:30 AM EDT Infusion Hematology Oncology at [address] [phone] 03/02/2024 11:00 AM EDT Office Visit Hematology/Oncology at [address] [phone] Shon Schneider MD [facility] [place] [place] [address] [address] HEMATOLOGY [place] [address] 03/02/2024 12:30 PM EDT Infusion Hematology Oncology at [address] [phone] 03/09/2024 10:00 AM EDT Office Visit Hematology/Oncology at [address] [phone] Shon Schneider MD [facility] [place] [address] Ciara Pitts APRN [address] [place] [address] DR HEMATOLOGY AND ONCOLOGY [place], [place] [address] 03/09/2024 10:30 AM EDT Infusion Hematology Oncology at [address] [phone] documented as of this encounter Goals Goal Patient Goal Type Associated Problems Recent Progress Patient-Stated? Author DH Home Medication Compliance and Understanding Patient Facing Action Plan On track( 019 3:22 PM EST) No Ivana Vanegas, [facility] Note: Remain 95% or better adherent to chemotherapy without severe side effects as assessed by days supply and patient reported adverse events at each refill documented as of this encounter Visit Diagnoses Not on filedocumented in this encounter Care Teams Sap Hana Architect Relationship Specialty Start Date End Date Jerzy Vidal MD [address] [place] [address] [place] [address] PCP - [facility] Medicine 12/04/18 documented as of this encounter
--- OUTSIDE RECORDS SUMMARY | 2024-02-24 01:19 | XMS_ITS | Encounter Summary ---
Author Organization [facility] [place] [address] Care Team Providers Care Constitutional Law Professor Name Role Phone Jerzy Vidal MD Primary Care Provider [phone] Encounter Details Date Type Department Care Team (Late Contact Info) Description 07/14/2021 3:05 PM EST Ancillary Procedure Radiology [place] [address] Jerzy Vidal MD [address] [place] [id number] Social History Tobacco Use Types Packs/Day Years [...] AM EDT Office Visit Hematology/Oncology at [address] [phone] Shon Schneider MD [facility] [place] [address] Ciara Pitts APRN [address] [place] [address] DR HEMATOLOGY AND ONCOLOGY [place], [place] [address] 02/24/2024 9:30 AM EDT Infusion Hematology Oncology at [address] [phone] 03/02/2024 11:00 AM EDT Office Visit Hematology/Oncology at [address] [phone] Shon Schneider MD [facility] [place] [address] [address] HEMATOLOGY AND ONCOLOGY [place], [place] [address] 03/02/2024 12:30 PM EDT Infusion Hematology Oncology at [address] [phone] 03/09/2024 10:00 AM EDT Office Visit Hematology/Oncology at [address] [phone] Shon Schneider MD [facility] [place] [address] [address] [place] [address] 03/09/2024 10:30 AM EDT Infusion Hematology Oncology at [address] [phone] documented as of this encounter Goals Goal [...] FILM LIBRARY STORAGE ONLY CT CHEST Routine 07/14/2021 3:04 PM EST documented in this encounter Results * Film Library- Storage Only CT Chest (07/14/2021 3:04 PM EST) Narrative MICHAEL PENDLETON - 07/14/2021 3:04 PM EST This exam is auto-finalizing. It's purpose is for storage only. Jerzy Vidal MD [facility] FILM LIBRARY ORD ERABLES Performing Organization Address City/State/[facility] Co de Phone Number [place], [place] documented in this encounter Visit Diagnoses Not on filedocumented in this encounter Care Teams Constitutional Law Professor Relationship Specialty Start Date End Date Jerzy Vidal MD [address] [place] [address] [place] [address] PCP - [facility] Medicine 12/04/18 documented as of this encounter
--- OUTSIDE RECORDS SUMMARY | 2024-02-24 01:19 | XMS_ITS | Encounter Summary ---
Author Organization [facility] [place] [address] Care Team Providers Care Vp Celebrity Services Name Role Phone Jerzy Vidal MD Primary Care Provider [phone] Encounter Details Date Type Department Care Team (Late st Contact Info) Description 06/19/2021 1:00 PM EST TH Visit (TeleHealth) Hematology/Oncology at [address] [phone] Shon Schneider MD [facility] [place] [address] Ivory Flynn, EUGENIO [address] [place] [address] DR HEMATOLOGY ONCOLOGY [place], [place] [id number] Thymic carcinoma; Hypomagnesemia; Hypothyroidism, acquired Social History Tobacco Use Types Packs/Day Years Used Date Smoking Tobacco: Never Smokeless Tobacco: Never Sex and Gender Information Value Date Recorded Sex Assigned at Not on file Gender Identity Not on file Sexual Orientation Not on file documented as of this encounter Progress Notes * Ivory Flynn APRN - 06/19/2021 1:00 PM EST Subjective: Patient ID: Monica [...] effusion with compression atelectasis. ?? transferred to [facility] for further evaluation and workup and [...] B. Biopsy of mediastinal mass 03/29 Path ([facility] review) - Mediastinum, mass, biopsy: 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 ?? [facility] - CONSULT SLIDES FROM [facility]; [place], [place]: A. MEDIASTINUM, MASS, BIOPSY ([id number]; 03/22/2017): ? MALIGNANT THYMIC EPITHELIAL NEOPLASM consistent [...] 4.5 CM, ULTRASOUND GUIDED FINED NEEDLE ASPIRATION ([id number]; 03/22/17): The cytologic preparations were not reviewed [...] Second opinion with Dr. Roddy Vega in [place]. ??They reviewed the pathology and concurred they [...] therapy with pembrolizumab L. CT c/a/p 11/06/19 ([facility] second read) - IMPRESSION 1. 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 ?? Fam Hx: No h/o cancer INTERVAL HPI 06/19/21 - TELEPHONE VISIT Moncia Jaramillo is a 66 yo female with stage IV thymic carcinoma diagnosed in 03/29. (Refer to extensive history summarized above.) Monica returns to the [facility] oncology clinic today for clinic visit for evaluation of ongoing Lenvatinib therapy. Monica has been dealing with the recent loss of her who 03/30/21. Monica started Lenvatinib 24 mg po QD on 08/15/20. After developing erythrocytosis it was discontinued briefly and reduced to 14mg daily. She has beenon this dose since 05/02/21. Monica feels she is doing well from a physical perspective. She is struggling more emotionally sincethe of her in March. She has good days and bad days, she says, and relies much on her extended family for support, which has been helpful. She feels her energy is good. She did have a few days around ' when she was so down she couldn't get out of bed, but is better now. She qualified for full assistance for Lenvatinib and has been taking 14mg QD. She is not getting out of the house that much due to it being winter. Her children help her with transportation as needed. Monica denies shortness of breath, chest pain or new cough. She checks her oxygen saturation each morning and states it usually 99% on room air. She is not having any new pain. She feels she is eating well, although she has not weighed herself at home. She is not having any significant bowel issues. She may have occasional nausea, but sounds better since the Lenvatinib was reduced to 14mg for erythrocytosis. No persistent mouth sores. Monica states she does not have muscle pain or weakness. No skin itching or rashes noted. No extremity swelling or edema. No leg pain. No symptoms of blood clots. She denies numbness or tingling. We discussed a plan to do a restaging CT in a few weeks with a follow-up clinic visit and Monica is in agreement with the plan. She has been taking levothyroxine 125mcgs QD. Allergies Allergen Reactions ??? Carboplatin ??? Penicillins Hives ??? Pollen Extracts Other (See Comments) rhinorrhea Current Medications ??? buPROPion SR (Wellbutrin SR) 150 mg tablet sustained-release 12 hr ??? lenvatinib (Lenvima) 14 mg/day(10 mg x 1-4 mg x 1) capsule ??? aMILoride (Midamor) 5 mg Tablet ??? lenvatinib (Lenvima) 14 mg/day(10 mg x 1-4 mg x 1) capsule ??? aMILoride (Midamor) 5 mg Tablet ??? levothyroxine (Synthroid) 25 mcg Tablet ??? levothyroxine (Synthroid) 100 mcg Tablet ??? ondansetron (Zofran) 8 mg [...] sores, nosebleeds and trouble swallowing. Eyes: Negative. Respiratory: Negative for cough, chest tightness and shortness of breath. Cardiovascular: Negative for chest pain and palpitations. Gastrointestinal: Negative for abdominal distention, constipation, diarrhea, nausea and vomiting. Endocrine: Feels cold more often Genitourinary: Negative. Musculoskeletal: Positive for arthralgias. Left knee intermittent pain and instability. Skin: Negative for color change and rash. Neurological: Negative for dizziness, numbness and headaches. Hematological: Negative. Psychiatric/Behavioral: Positive for sleep disturbance. Grief waxes and wanes - some nights she has difficulty sleeping. (NO OBJECTIVE, PHONE VISIT. ) Objective: Physical [...] no vitals taken for this visit. LABS 06/19/21 WBC 3.2; ANC 1.26; H/H 16.3/47.8; PLT 147; BUN 12; CREAT 0.9; NA+ 130; K+3.8; LFTs normal; TSH 55.03; MAG 1.7. LABS 05/14/21 WBC 5.4; ANC 3.50; H/H [...] effusion visible. Assessment: Monica Jaramillo is a 66 yo female with stage IV thymic carcinoma diagnosed in 03/29. (Refer to extensive history summarized above.) Monica returns to the [facility] oncology clinic today for clinic visit for evaluation of ongoing Lenvatinib therapy. Monica has been dealing with the recent loss of her who 03/30/21. CBC, CMP, TSH, FREET4 and MAG are reviewed with Monica today. H/H rising again, now just barely overhigh-end of normal. Monica does not want to stop therapy. TSH increased from 22 to 55. Will adjust dose of Levothyroxine. Monica is doing well on lower Lenvatinib. Erythrocytosis may be active again.. She is managing well enough following the of her in . Plan:. Continue Levatinib - 14 mg po QD. Increase levothyroxine to [address] m[address] qd. Restaging chest CT in a few weeks (patient requests Tuesday scan due to transportation issues.) RTC 07/[address] Schneider to discuss therapy and scan. Call sooner for questions or concerns. documented in this encounter Plan of Treatment Upcoming Encounters Date Type Department Care Team (Late st Contact Info) Description 02/24/2024 9:00 AM EDT Office Visit Hematology/Oncology at [address] [phone] Shon Schneider MD [facility] [place] [address] HEMATOLOGY AND ONCOLOGY [place], [place] [address] 02/24/2024 9:30 AM EDT Infusion Hematology Oncology at [address] [phone] 03/02/2024 11:00 AM EDT Office Visit Hematology/Oncology at [address] [phone] 23 Shon Schneider MD [facility] [place] [place] [address] HEMATOLOGY AND ONCOLOGY [place], [place] [id number] 03/02/2024 12:30 PM EDT Infusion Hematology Oncology at [address] [phone] 03/09/2024 10:00 AM EDT Office Visit Hematology/Oncology at [address] [phone] Shon Schneider MD [facility] [place] [address] [address] HEMATOLOGY AND ONCOLOGY [place], [place] [id number] 03/09/2024 10:30 AM EDT Infusion Hematology Oncology at [address] [phone] documented as of this encounter Goals Goal [...] thymus Hypomagnesemia Disorders of magnesium metabolism Hypothyroidism, acquired Unspecified hypothyroidism Thymic carcinoma Malignant neoplasm of thymus documented in this encounter Care Teams Vp Celebrity Services Relationship Specialty Start Date End Date Jerzy Vidal MD [address] [place] [address] [place] [address] PCP - [facility] Medicine 12/04/18 documented as of this encounter
--- OUTSIDE RECORDS SUMMARY | 2024-02-24 01:19 | XMS_ITS | Encounter Summary ---
Author Organization Counts Include [facility] Address [facility] [place] [address] Care Team Providers Care Assistant Cross Country Coach Name Role Phone Jerzy Vidal MD Primary Care Provider [phone] Reason for Visit * Reason Comments Specialty Pharmacy Review Encounter Details Date Type Department Care Team (Late st Contact Info) Description 03/06/2021 Specialty [place] [address] Ines Middleton Social History Tobacco Use Types Packs/Day Years [...] 9:00 AM EDT Office Visit Hematology/Oncology at [address] [phone] Shon Schneider MD [facility] [place] [address] Ciara Pitts APRN [address] [place] [address] DR HEMATOLOGY AND ONCOLOGY [place], [place] [phone] 02/24/2024 9:30 AM EDT Infusion Hematology Oncology at [address] [phone] 03/02/2024 11:00 AM EDT Office Visit Hematology/Oncology at [address] [phone] Shon Schneider MD [facility] [place] [address] [address] HEMATOLOGY AND ONCOLOGY [place], [place] [phone] 03/02/2024 12:30 PM EDT Infusion Hematology Oncology at [address] [phone] 03/09/2024 10:00 AM EDT Office Visit Hematology/Oncology at [address] [phone] Shon Schneider MD [facility] [place] [address] HEMATOLOGY AND ONCOLOGY [place], [place] [phone] 03/09/2024 10:30 AM EDT Infusion Hematology Oncology at [address] [phone] documented as of this encounter Goals Goal [...] on filedocumented in this encounter Care Teams Assistant Cross Country Coach Relationship Specialty Start Date End Date Jerzy Vidal MD [address] [place] [address] [place] [address] PCP - [facility] Medicine 12/04/18 documented as of this encounter
--- OUTSIDE RECORDS SUMMARY | 2024-02-24 01:19 | XMS_ITS | Encounter Summary ---
Author Organization [facility] [place] [address] Care Team Providers Care Tableman Name Role Phone Jerzy Vidal MD Primary Care Provider [phone] Encounter Details Date Type Department Care Team (Late Contact Info) Description 06/10/2021 Orders Only Hematology [place] [phone] Shon Schneider MD [facility] [place] [address] Thymic carcinoma Social History Tobacco Use Types [...] AM EDT Office Visit Hematology/Oncology at [address] [phone] Shon Schneider MD [facility] [place] [place] [address] Ciara Pitts APRN [address] [place] [address] DR HEMATOLOGY [place] [address] 02/24/2024 9:30 AM EDT Infusion Hematology Oncology at [address] [phone] 03/02/2024 11:00 AM EDT Office Visit Hematology/Oncology at [address] [phone] Shon Schneider MD [facility] [place] [address] HEMATOLOGY AND ONCOLOGY [place], [place] [address] 03/02/2024 12:30 PM EDT Infusion Hematology Oncology at [address] [phone] 03/09/2024 10:00 AM EDT Office Visit Hematology/Oncology at [address] [phone] Shon Schneider MD [facility] [place] [address] HEMATOLOGY AND ONCOLOGY [place], [place] [address] 03/09/2024 10:30 AM EDT Infusion Hematology Oncology at [address] [phone] documented as of this encounter Goals Goal [...] thymus documented in this encounter Care Teams Tableman Relationship Specialty Start Date End Date Jerzy Vidal MD [address] [place] [address] [place] [address] PCP - [facility] Medicine 12/04/18 documented as of this encounter
--- OUTSIDE RECORDS SUMMARY | 2024-02-24 01:19 | XMS_ITS | Encounter Summary ---
Author Organization Counts Include [facility] Address [facility] [place] [address] Care Team Providers Care Laundry Tech Name Role Phone Jerzy Vidal MD Primary Care Provider [phone] Encounter Details Date Type Department Care Team (Late st Contact Info) Description 05/01/2021 11:30 AM EST Office Visit Hematology/Oncology at [address] [phone] Shon Coates MD [facility] [place] [address] Ivory Fylnn, PLANNING SUPERVISOR [address] [place] [address] DR HEMATOLOGY ONCOLOGY [place], [place] [phone] Thymic carcinoma; Polycythemia; Hypothyroidism, acquired; Hypomagnesemia; Elevated serum creatinine; Hyperbilirubinemia Social History Tobacco Use Types Packs/Day Years Used Date Smoking Tobacco: Never Smokeless Tobacco: Never Sex and Gender Information Value Date Recorded Sex Assigned at Not on file Gender Identity Not on file Sexual Orientation Not on file documented as of this encounter Last Filed Vital Signs Vital Sign Reading Time Taken Comments Blood Pressure 105/65 05/01/2021 11:20 AM EST Pulse 64 05/01/2021 11:20 AM EST Temperature 36.4 ??C (97.6 ??F) 05/01/2021 11:[address] Respiratory Rate 18 05/01/2021 11:20 AM EST Oxygen Saturation 100% 05/01/2021 11:20 AM EST Inhaled Oxygen Concentration - - Weight 94.6 kg (208 lb 9.6 oz) 05/01/2021 11:20 AM EST Height 175.3 cm (5' 9.02) 05/01/2021 11:[address] Body Mass Index 30.79 05/01/2021 11:20 AM EST documented in this encounter Progress Notes * Shon Coates MD - 05/01/2021 11:30 AM EST Subjective: Patient ID: Monica Jaramillo is 65 [...] with compression atelectasis. transferred to [facility] for further evaluation and workup and had [...] B. Biopsy of mediastinal mass 03/29 Path ([facility] review) - Mediastinum, mass, biopsy: 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 [facility] - [facility] FROM [facility]; [place], [place]: A. MEDIASTINUM, MASS, BIOPSY ([id number]; 03/22/2017): ? 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 ?Immunohistochemistry performed at the outside institution and reviewed at [facility] demonstrates the following staining profile in lesional cells: ? Positive - AE1/AE3, p40, PAX8, CD117, CD5(multifocal), CK7(scattered cells), synaptophysin, chromogranin ? Negative - CK20, TTF-1, GATA3, CD34 ? The immunohistochemical profile supports the above diagnosis. ? Ki67 (MIB-1) proliferation index performed at the referring institution and reviewed at [facility] is focally up to ~30%. NOTE: While diffuse synaptophysin and chromogranin expression is unusual for conventional thymic carcinoma, the overall histomorphology and immunophenotype is most in keeping with THYMIC SQUAMOUS CARCINOMA.?The extent of PAX8 and CD117 staining would be unusual for Nut carcinoma. B. MEDIASTINUM, ANTERIOR, 4.5 CM, ULTRASOUND GUIDED FINED NEEDLE ASPIRATION ([id number]; 03/22/17): The cytologic preparations were not reviewed [...] Second opinion with Dr. Roddy Vega in [place]. They reviewed the pathology and concurred they [...] therapy with pembrolizumab L. CT c/a/p 11/06/19 ([facility] second read) - IMPRESSION 1. [...] accompanied to clinic today by her daughter Yoly. She is dong fair. Monica's Timrecently (03/30/21) and this has been very hard for her. She promised Royce that she would take care of herself and she is doing the best she can. Her children are around and supportive. Physically, she says she is feeling well. She has lost weight but says her appetite came back a week and a half ago. Her bowels are better. She had been having some diarrhea for about 4 days but that is betternow. She stopped the magnesium because of the diarrhea. She was taking 6 per day. She is planning to restart at 500 mg bid. No cough or SOB. No headaches, no vision changes and no other neurologic symptoms. She had been struggling to take fluids but is doing better with that. Soc Hx: , lives in [place], [place] Tob - Never Etoh - rare Works [...] distress. Breath sounds: No wheezing or rales. Chest: Breasts: Right: No supraclavicular adenopathy. Left: No supraclavicular adenopathy. Musculoskeletal: General: No swelling. Lymphadenopathy: Cervical: No cervical adenopathy. Upper Body: Right upper body: No supraclavicular adenopathy. Left upper body: No supraclavicular adenopathy. Skin: General: Skin is warm and dry. Findings: No rash. Neurological: Mental Status: She is alert. Comments: Ambulatory behind a wheelchair Psychiatric: Mood and Affect: Mood normal. Labs: (05/01/21): WBC/ANC - 6., Hgb/Hct - 13/36.7, Plts - 197. BUN/Cr - 56/2.0. Na - 131, K - 3.2. t bili - 0.7 (04/29/21): WBC/ANC/AMC - 5.06/3319/969, Hgb/Hct - 14.6/41.4, Plts - 177,000. BUN/Cr - 56/1.9. Na - 127, K - 3.1, Alb -2.9, T bili - 1.2, AST - 42. Mg - 1.5. FT4 - 1.41 (04/15/21): WBC/ANCAMC - 4.02/2850/735 (15%), Hgb/Hct - [...] (02/18/21): TSH - 82.14, FT4 - 0.8. (/): TSH - 45.41 (04/15/21): TSH - 111.25; [...] pembrolizumab. I spoke with Dr. Vega at [facility]. There were no clinical trials available [...] also spoke with Dr. Shon Ramon at [facility]. He agreed that [...] producing EPO. We had her discontinue the lenvatinib. Recheck of the CBC shows normalization of the Hgb. She has not noted any clinical signs of bleeding. The stools are normal in color with no melena or BRBPR. Thebilirubin level is WNL arguing against hemolysis. An EPO level is pending. The BUN/Cr are higher. This may be pre-renal as her oral intake has not been as good and she had some diarrhea although she f eels better now. We will check a renal US next week and recheck labs next week and in the meantime will have her push fluids. We plan to have her resume the lenvatinib at 14 mg per day. We talked about a restaging evaluation. With everything that has happened, she would like to wait until June. We had increased the synthroid dose to 125 mcg/day. The TSH was not done. The FT4 is toward the upper end of normal. For now, will have her continue the same dose and recheck. The hypothyroidism is felt likely to have been related to the lenvatinib. Will continue to follow. She received her second covid vaccine shot on 09/26/20 documented in this encounter Miscellaneous Notes * Addendum Note - Shon Coates MD - 05/01/2021 11:30 AM ESTAddended by: SHON COATES on: 05/01/2021 02:32 PM Modules accepted: Orders * Addendum Note - Shon Coates MD - 05/01/2021 11:30 AM ESTAddended by: SHON COATES on: 05/01/2021 04:49 PM Modules accepted: Orders documented in this encounter Plan of Treatment Upcoming Encounters Date Type Department Care Team (Late st [facility] Info) Description 02/24/2024 9:00 AM EDT Office Visit Hematology/Oncology at [address] [phone] Shon Coates MD [facility] [place] [address] [place] [address] 02/24/2024 9:30 AM EDT Infusion Hematology Oncology at [address] [phone] 03/02/2024 11:00 AM EDT Office Visit Hematology/Oncology at [address] [phone] Shon Coates MD [facility] [place] [address] Ciara Pitts [address] HEMATOLOGY AND ONCOLOGY [place], [place] [address] 03/02/2024 12:30 PM EDT Infusion Hematology Oncology at [address] [phone] 03/09/2024 10:00 AM EDT Office Visit Hematology/Oncology at [address] [phone] Shon Coates MD [facility] [place] [place] [address] HEMATOLOGY AND ONCOLOGY [place], [place] [phone] 03/09/2024 10:30 AM EDT Infusion Hematology Oncology at [address] [phone] documented as of this encounter Goals Goal Patient Goal Type Associated Problems Recent Progress Patient-Stated? Author DH Home Medication Compliance and Understanding Patient Facing Action Plan On track( 019 3:22 PM EST) Ivana Ashraf, [facility] Note: Remain 95% or better adherent to chemotherapy without severe side effects as assessed by days supply and patient reported adverse events at each refill documented as of this encounter Visit Diagnoses Diagnosis Thymic carcinoma Malignant neoplasm of thymus Polycythemia Polycythemia vera Hypothyroidism, acquired Unspecified hypothyroidism Hypomagnesemia Disorders of magnesium metabolism Elevated serum creatinine Other nonspecific findings on examination of blood Hyperbilirubinemia Jaundice, unspecified, not of Thymic carcinoma Malignant neoplasm of thymus documented in this encounter Care Teams Laundry Tech Relationship Specialty Start Date End Date Jerzy Vidal MD [address] [place] [address] [place] [address] PCP - [facility] Medicine 12/04/18 documented as of this encounter
--- OUTSIDE RECORDS SUMMARY | 2024-02-24 01:19 | XMS_ITS | Encounter Summary ---
Author Organization [facility] [place] [address] Care Team Providers Care Program Facilitator Name Role Phone Jerzy Vidal MD Primary Care Provider [phone] Encounter Details Date Type Department Care Team (Late Contact Info) Description 02/10/2021 7:10 PM EDT Ancillary [place] [address] Shon Schneider MD [facility] [place] [address] Social History Tobacco Use Types Packs/Day Years [...] AM EDT Office Visit Hematology/Oncology at [address] [phone] Shon Schneider MD [facility] [place] [address] Ciara Pitts APRN [address] [place] [address] DR HEMATOLOGY AND ONCOLOGY [place], [place] [address] 02/24/2024 9:30 AM EDT Infusion Hematology Oncology at [address] [phone] 03/02/2024 11:00 AM EDT Office Visit Hematology/Oncology at [address] [phone] Shon Schneider MD [facility] [place] [address] HEMATOLOGY AND ONCOLOGY [place], [place] [id number] 03/02/2024 12:30 PM EDT Infusion Hematology Oncology at [address] [phone] 03/09/2024 10:00 AM EDT Office Visit Hematology/Oncology at [address] [phone] Shon Schneider MD [facility] [place] [address] [address] HEMATOLOGY AND ONCOLOGY [place], [place] [address] 03/09/2024 10:30 AM EDT Infusion Hematology Oncology at [address] [phone] documented as of this encounter Goals Goal [...] FILM LIBRARY STORAGE ONLY CT CHEST Routine 02/10/2021 7:09 PM EDT documented in this encounter Results * Film Library- Storage Only CT Chest (02/10/2021 7:09 PM EDT) Narrative [facility] - 02/10/2021 7:09 PM EDT This exam is auto-finalizing. It's purpose is for storage only. Shon Schneider MD IMG FILM LIBRARY ORD ERABLES Performing Organization Address City/State/[facility] Co de Phone Number [place], [place] documented in this encounter Visit Diagnoses Not on filedocumented in this encounter Care Teams Program Facilitator Relationship Specialty Start Date End Date Jerzy Vidal MD [address] [place] [address] [place] [address] PCP - [facility] Medicine 12/04/18 documented as of this encounter
--- OUTSIDE RECORDS SUMMARY | 2024-02-24 01:19 | XMS_ITS | Encounter Summary ---
Author Organization [facility] Address [facility] [place] [address] Care Team Providers Care Gas Dispenser Name Role Phone Jerzy Vidal MD Primary Care Provider [phone] Encounter Details Date Type Department Care Team (Late st Contact Info) Description 01/23/2021 10:00 AM EDT Office Visit Hematology/Oncology at [address] [phone] Shon Schneider MD [facility] [place] [address] Ivory Flynn COSMETIC MAKER [address] [place] [address] DR HEMATOLOGY ONCOLOGY [place], [place] [id number] Thymic carcinoma; Drug-induced nausea and vomiting; Acquired hypothyroidism Social History Tobacco Use Types Packs/Day Years Used Date Smoking Tobacco: Never Smokeless Tobacco: Never Sex and Gender Information Value Date Recorded Sex Assigned at Not on file Gender Identity Not on file Sexual Orientation Not on file documented as of this encounter Last Filed Vital Signs Vital Sign Reading Time Taken Comments Blood Pressure 114/84 01/23/2021 10:01 AM EDT Pulse 58 01/23/2021 10:01 AM EDT Temperature 35.8 ??C (96.4 ??F) 01/23/2021 10:01 AM E DT Respiratory Rate 20 01/23/2021 10:01 AM EDT Oxygen Saturation 99% 01/23/2021 10:01 AM EDT Inhaled Oxygen Concentration - - Weight 103.4 kg (228 lb) 01/23/2021 10:01 AM EDT Height 175.3 cm (5' 9.02) 01/23/2021 10:01 AM E DT Body Mass Index 33.65 01/23/2021 10:01 AM EDT documented in this encounter Progress Notes * Ivory Flynn, COSMETIC MAKER - 01/23/2021 10:00 AM EDT Subjective: Patient ID: Monica [...] effusion with compression atelectasis. ?? transferred to [facility] for further evaluation and workup and [...] B. Biopsy of mediastinal mass 03/29 Path ([facility] review) - Mediastinum, mass, biopsy: 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 ?? [facility] - CONSULT SLIDES FROM [facility]; [place], [place]: A. MEDIASTINUM, MASS, BIOPSY ([id number]; 03/22/2017): ? 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 ?Immunohistochemistry performed at the outside institution and reviewed at [facility] demonstrates the following staining profile in lesional cells: ? Positive - AE1/AE3, p40, PAX8, CD117, CD5(multifocal), CK7(scattered cells), synaptophysin, chromogranin ? Negative - CK20, TTF-1, GATA3, CD34 ? The immunohistochemical profile supports the above diagnosis. ? Ki67 (MIB-1) proliferation index performed at the referring institution and reviewed at [facility] is focally up to ~30%. NOTE: While diffuse synaptophysin and chromogranin expression is unusual for conventional thymic carcinoma, the overall histomorphology and immunophenotype is most in keeping with THYMIC SQUAMOUS CARCINOMA.?The extent of PAX8 and CD117 staining would be unusual for Nut carcinoma. B. MEDIASTINUM, ANTERIOR, 4.5 CM, ULTRASOUND GUIDED FINED NEEDLE ASPIRATION ([id number]; 03/22/17): The cytologic preparations were not reviewed [...] Second opinion with Dr. Roddy Vega in [place]. ??They reviewed the pathology and concurred they [...] therapy with pembrolizumab L. CT c/a/p 11/06/19 ([facility] second read) - IMPRESSION 1. ??Worsening left-sided [...] 60-65%). ?? 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 ?? Fam Hx: No h/o cancer INTERVAL HPI 01/23/21 Monica Jaramillo is a 64 yo female with stage IV thymic carcinoma diagnosed in 03/29. (Refer to extensive history summarized above.) Monica returns to the [facility] oncology clinic today accompanied by her Royce for clinic visit for evaluation of ongoing Lenvatinib therapy. Mnoica started Lenvatinib 24 mg po QD on 08/15/20. Today Monica feels a little off. She has had a decreased appetite over the past few months. She has lost 6 pounds this month and 14 pounds since we saw her on 12/05/20. She usually cooks and really hasn't felt like it and foods have less appeal. She also gets unpredictable nausea which seems to occurrandomly, making it more difficult to prevent it. This month Monica has had more constipation issues which seem to trigger more nausea. She is using MIralax and Compazine to manage these, which have been helpful. Monica also describes more sensitivityon her tongue so certain foods make it burn and temperature extremes are uncomfortable. She denies mouth sores or white patches. She is tearful today about her Royce, who is being evaluated for a medical condition that hasmade it difficult for him to eat and she is very stressed and worried about him. He also acts as her primary caregiver. In addition, there are currently children and grandchildren living in their home. Monica reports her breathing has been good, with no new shortness of breath, cough, chest pain or heart palpitations. She has not had fevers, chills or other illnesses since her last clinic visit. Last month she had a rising TSH and decreasing FreeT4 and her Levothyroxine was increased to 75mcgs daily. She has not had new skin rashes or itching. Since using a nighttime humidifier her eyes have been less dry. No neuropathy. Allergies Allergen Reactions ??? Carboplatin ??? Penicillins Hives ??? Pollen Extracts Other (See Comments) rhinorrhea Current Medications ??? levothyroxine (Synthroid) 25 mcg Tablet ??? levothyroxine (Synthroid) 50 mcg Tablet ??? ondansetron (Zofran) 8 mg Tablet ??? aMILoride (Midamor) 5 mg Tablet [...] chest pain and palpitations. Gastrointestinal: Positive for constipation, nausea and vomiting. Negative for abdominal distentionand diarrhea. Endocrine: Feels cold more often Genitourinary: Negative. Musculoskeletal: Positive for arthralgias. Left knee intermittent pain and instability. Skin: Negative for color change and rash. Neurological: Negative for dizziness, numbness and headaches. Hematological: Negative. Psychiatric/Behavioral: The patient is nervous/anxious. Admits to stress and worry about her Royce, who has been ill. Objective: Physical Exam Vitals reviewed. Constitutional: General: [...] Thought content normal. Judgment: Judgment normal. BP 114/84 (Patient Position: Sitting) Pulse 58 Temp 35.8 ??C (96.4 ??F) (Temporal) Resp 20 Ht 175.3 cm (5' 9.02) Wt 103.4 kg (228 lb) SpO2 99% BMI 33.65 kg/m?? LABS 01/22/21 WBC 5.0; ANC 2.18; H/H 17.3/48.4; PLT 126; MAG 1.6; TSH 59.50; FREE T4 0.86; BUN 15; CREAT 0.90; BILI 1.3; ALP 57; ALT 15; AST 44. LABS 01/01/21 WBC 4.8; ANC 2.71; H/H [...] history summarized above.) Monica returns to the [facility] oncology clinic accompanied by her Royce for evaluation of daily Levatinib 24mg po QD which she started 08/18/20. CBC, CMP, TSH, FREET4 and MAG are reviewed with Monica and Royce today and support ongoing treatment. Magnesium stable. FreeT4 normal today, TSH high. Monica is experiencing anorexia and nausea as main toxicities in addition to primary and subclinicalhypothyroidism. We talked about adjusting the dose of Lenvatinib or trying Remeron 15mg po HS to boost appetite andsleep. Monica would prefer to stay on the current Lenvatinib dose and try Remeron. Plan:. Continue Levatinib - 24 mg po QD. Continue Compazine and Miralax prn. New prescription for Remeron 15mg po HS sent. Continue on Levothyroxine 75mcgs po QD. Restaging CT prior to next visit. RTC in 4 weeks for visit with Dr. Schneider and CT results, labs. Increase levothyroxine to 75 mcgs po qd. Additional prescription for 25mcg size sent in. Continue oral Magnesium 1gm QD. SWBS swishes 4X daily. Call if tongue discomfort increases. RTC in one month with labs, visit. documented in this encounter Plan of Treatment Upcoming Encounters Date Type Department Care Team (Late st Contact Info) Description 02/24/2024 9:00 AM EDT Office Visit Hematology/Oncology at [address] [phone] Shon Schneider MD [facility] [place] [address] [address] HEMATOLOGY AND ONCOLOGY [place], [place] [address] [phone] 02/24/2024 9:30 AM EDT Infusion Hematology Oncology at [address] [phone] 03/02/2024 11:00 AM EDT Office Visit Hematology/Oncology at [address] [phone] Shon Schneider MD [facility] [place] [place] [address] [address] HEMATOLOGY AND ONCOLOGY [place], [place] [address] 03/02/2024 12:30 PM EDT Infusion Hematology Oncology at [address] [phone] 03/09/2024 10:00 AM EDT Office Visit Hematology/Oncology at [address] [phone] Shon Schneider MD [facility] [place] [address] Ci[address] Pitts [address] HEMATOLOGY AND ONCOLOGY [place], [place] [id number] 03/09/2024 10:30 AM EDT Infusion Hematology Oncology at [address] [phone] documented as of this encounter Goals Goal Patient Goal Type Associated Problems Recent Progress Patient-Stated? Author DH Home Medication Compliance and Understanding Patient Facing Action Plan On track( 019 3:22 PM EST) No Ivana Vanegas, [facility] Note: Remain 95% or better adherent to chemotherapy without severe side effects as assessed by days supply and patient reported adverse events at each refill documented as of this encounter Visit Diagnoses Diagnosis Thymic carcinoma Malignant neoplasm of thymus Drug-induced nausea and vomiting Nausea with vomiting Acquired hypothyroidism Unspecified hypothyroidism Thymic carcinoma Malignant neoplasm of thymus documented in this encounter Care Teams Gas Dispenser Relationship Specialty Start Date End Date Jerzy Vidal MD [address] [place] [address] [place] [address] PCP - [facility] Medicine 12/04/18 documented as of this encounter
--- OUTSIDE RECORDS SUMMARY | 2024-02-24 01:19 | XMS_ITS | Encounter Summary ---
Author Organization [facility] [place] [address] Care Team Providers Care Membership Advisor Name Role Phone Jerzy Vidal MD Primary Care Provider [phone] Encounter Details Date Type Department Care Team (Late Contact Info) Description 01/26/2021 Telephone Hematology/Oncology at [address] [phone] HEMATOLOGY ONCOLOGY [place], [place] [phone] Social History Tobacco Use Types Packs/Day Years [...] AM EDT Office Visit Hematology/Oncology at [address] [phone] Shon Schneider MD [facility] [place] [address] HEMATOLOGY AND ONCOLOGY [place], [place] [phone] 02/24/2024 9:30 AM EDT Infusion Hematology Oncology at [address] [phone] 03/02/2024 11:00 AM EDT Office Visit Hematology/Oncology at [address] [phone] Shon Schneider MD [facility] [place] [address] HEMATOLOGY AND ONCOLOGY [place], [place] [address] 03/02/2024 12:30 PM EDT Infusion Hematology Oncology at [address] [phone] 03/09/2024 10:00 AM EDT Office Visit Hematology/Oncology at [address] [phone] Shon Schneider MD [facility] [place] [address] [address] [place] [address] 03/09/2024 10:30 AM EDT Infusion Hematology Oncology at [address] [phone] documented as of this encounter Goals Goal Patient Goal Type Associated Problems Recent Progress Patient-Stated? Author DH Home Medication Compliance and Understanding Patient Facing Action Plan On track( 019 3:22 PM EST) Ivana Ashraf, [facility] Note: Remain 95% or better adherent to chemotherapy without severe side effects as assessed by days supply and patient reported adverse events at each refill documented as of this encounter Visit Diagnoses Diagnosis Hypomagnesemia Disorders of magnesium metabolism Thymic carcinoma Malignant neoplasm of thymus documented in this encounter Care Teams Membership Advisor Relationship Specialty Start Date End Date Jerzy Vidal MD [address] [place] [address] [place] [address] PCP - [facility] Medicine 12/04/18 documented as of this encounter
--- OUTSIDE RECORDS SUMMARY | 2024-02-24 01:19 | XMS_ITS | Encounter Summary ---
Author Organization [facility] [place] [address] Care Team Providers Care Medical Research Scientist Name Role Phone Jerzy Vidal MD Primary Care Provider [phone] Reason for Visit * Reason Comments Medication Refill Encounter Details Date Type Department Care Team (Late Contact Info) Description 05/08/2021 Refill Hematology/Oncology at [address] [phone] [address] [place] [address] Hypomagnesemia Social History Tobacco Use [...] 9:00 AM EDT Office Visit Hematology/Oncology at [address] [phone] Shon Schneider MD [facility] [place] [address] Ciara Pitts [address] HEMATOLOGY AND ONCOLOGY [place], [place] [phone] 02/24/2024 9:30 AM EDT Infusion Hematology Oncology at [address] [phone] 03/02/2024 11:00 AM EDT Office Visit Hematology/Oncology at [address] [phone] Shon Schneider MD [facility] [place] [address] [address] HEMATOLOGY AND ONCOLOGY [place], [place] [phone] 03/02/2024 12:30 PM EDT Infusion Hematology Oncology at [address] [phone] 03/09/2024 10:00 AM EDT Office Visit Hematology/Oncology at [address] [phone] Shon Schneider MD [facility] [place] [place] [address] [address] HEMATOLOGY AND ONCOLOGY [place], [place] [address] 03/09/2024 10:30 AM EDT Infusion Hematology Oncology at [address] [phone] documented as of this encounter Goals Goal Patient Goal Type Associated Problems Recent Progress Patient-Stated? Author DH Home Medication Compliance and Understanding Patient Facing Action Plan On track( 019 3:22 PM EST) Ivana Ashraf, [facility] Note: Remain 95% or better adherent to chemotherapy without severe side effects as assessed by days supply and patient reported adverse events at each refill documented as of this encounter Visit Diagnoses Diagnosis Hypomagnesemia Disorders of magnesium metabolism Thymic carcinoma Malignant neoplasm of thymus documented in this encounter Care Teams Medical Research Scientist Relationship Specialty Start Date End Date Jerzy Vidal MD [address] [place] [address] [place] [address] PCP - [facility] Medicine 12/04/18 documented as of this encounter
--- OUTSIDE RECORDS SUMMARY | 2024-02-24 01:19 | XMS_ITS | Encounter Summary ---
Author Organization [facility] [place] [address] Care Team Providers Care Research Mechanic Name Role Phone Jerzy Vidal MD Primary Care Provider [phone] Reason for Visit * Reason Onset Date Comments Other 03/03/2021 community resour ailyn Encounter Details Date Type Department Care Team (Late st Contact Info) Description 03/03/2021 Telephone Hematology/Oncology at [address] [phone] Sun Collins MSW OFFICE OF CARE MANAGEMENT Other (community resources) Social History Tobacco Use Types Packs/Day Years Used Date Smoking Tobacco: Never Smokeless Tobacco: Never Sex and Gender Information Value Date Recorded Sex Assigned at Not on file Gender Identity Not on file Sexual Orientation Not on file documented as of this encounter Miscellaneous Notes * Telephone Encounter - Sun Collins MSW - 03/03/2021 1:47 PM EDT LABORER TANBARK reached out to pt to inquire need for community/financial resources given pt's ongoing treatments and additional stress related to 's health. Discussed with Lashawn Skelton RN. TC pt. Pt reports she continues her chemotherapy treatments. Her is dealing with significant ealthissues. They are dealing with a lot of stress at this time. Pt reports her son and daughter are nearby and are very involved and supportive. She reports family, friends and community members have been generous with their help. Offered support. Discussed several community resources available to pt. Discussed the [facility] cancer fund and pt indicated the medical billing manager reached out to her and will help with gas cards. With pt's permission completed the application for that fund and will submit the paperwork. Inquired if pt connected with the [employer] and she indicated she has. Gave pt information about the [facility] and the [employer]. Pt to consider. Gave pt LABORER TANBARK contact information. Encouraged her to call if interested in applying to some additional resources. SW Interventions: Brief assessment Supportive Counseling Financial resources Community Resource documented in this encounter Plan of Treatment Upcoming Encounters Date Type Department Care Team (Late st Contact Info) Description 02/24/2024 9:00 AM EDT Office Visit Hematology/Oncology at [address] [phone] Shon Schneider MD [facility] [place] [address] HEMATOLOGY [place] [address] 02/24/2024 9:30 AM EDT Infusion Hematology Oncology at [address] [phone] 03/02/2024 11:00 AM EDT Office Visit Hematology/Oncology at [address] [phone] Shon Schneider MD [facility] [place] [place] [address] [address] HEMATOLOGY [place] [address] 03/02/2024 12:30 PM EDT Infusion Hematology Oncology at [address] [phone] 03/09/2024 10:00 AM EDT Office Visit Hematology/Oncology at [address] [phone] Shon Schneider MD [facility] [place] [address] Ciara Pitts APRN [address] [place] [address] DR HEMATOLOGY AND ONCOLOGY [place], [place] [address] 03/09/2024 10:30 AM EDT Infusion Hematology Oncology at [address] [phone] documented as of this encounter Goals Goal Patient Goal Type Associated Problems Recent Progress Patient-Stated? Author DH Home Medication Compliance and Understanding Patient Facing Action Plan On track( 019 3:22 PM EST) Ivana Ashraf, [facility] Note: Remain 95% or better adherent to chemotherapy without severe side effects as assessed by days supply and patient reported adverse events at each refill documented as of this encounter Visit Diagnoses Not on filedocumented in this encounter Care Teams Research Mechanic Relationship Specialty Start Date End Date Jerzy Vidal MD [address] [place] [address] [place] [address] PCP - General [facility] Medicine 12/04/18 documented as of this encounter
--- OUTSIDE RECORDS SUMMARY | 2024-02-24 01:19 | XMS_ITS | Encounter Summary ---
Author Organization [facility] [place] [address] Care Team Providers Care Telegraph Equipment Maintainer Name Role Phone Jerzy Vidal MD Primary Care Provider [phone] Reason for Visit * Reason Comments Medication Refill Encounter Details Date Type Department Care Team (Late Contact Info) Description 05/07/2021 Refill Hematology/Oncology at [address] [phone] [place] [address] Hypomagnesemia Social History Tobacco Use [...] AM EDT Office Visit Hematology/Oncology at [address] [phone] Shon Schneider MD [facility] [place] [address] [address] HEMATOLOGY AND ONCOLOGY [place], [place] [phone] 02/24/2024 9:30 AM EDT Infusion Hematology Oncology at [address] [phone] 03/02/2024 11:00 AM EDT Office Visit Hematology/Oncology at [address] [phone] Shon Schneider MD [facility] [place] [address] HEMATOLOGY AND ONCOLOGY [place], [place] [phone] 03/02/2024 12:30 PM EDT Infusion Hematology Oncology at [address] [phone] 03/09/2024 10:00 AM EDT Office Visit Hematology/Oncology at [address] [phone] Shon Schneider MD [facility] [place] [address] [address] HEMATOLOGY [place] ONCOLOGY [place], [place] [address] 03/09/2024 10:30 AM EDT Infusion Hematology Oncology at [address] [phone] documented as of this encounter Goals Goal [...] thymus documented in this encounter Care Teams Telegraph Equipment Maintainer Relationship Specialty Start Date End Date Jerzy Vidal MD [address] [place] [address] [place] [address] PCP - [facility] Medicine 12/04/18 documented as of this encounter
--- OUTSIDE RECORDS SUMMARY | 2024-02-24 01:19 | XMS_ITS | Encounter Summary ---
Author Organization [facility] [place] [address] Care Team Providers Care Automation Test Engineer Name Role Phone Jerzy Vidal MD Primary Care Provider [phone] Reason for Visit * Reason Onset Date Comments Medication Refill 05/12/2021 Oral chemo-Gianfranco vatatinib (Lenvima) Encounter Details Date Type Department Care Team (Late st Contact Info) Description 05/12/2021 Telephone Hematology Oncology at [address] [phone] Lashawn Skelton bpm analyst Refill (Oral chemo-Lenvatatinib (Lenvima)) Social History Tobacco Use Types Packs/Day Years Used Date Smoking Tobacco: Never Smokeless Tobacco: Never Sex and Gender Information Value Date Recorded Sex Assigned at Not on file Gender Identity Not on file Sexual Orientation Not on file documented as of this encounter Miscellaneous Notes * Telephone Encounter - Lashawn Skelton RN - 05/12/2021 6:47 AM EST Oral Chemotherapy Check Note 05/12/2021 Monica Jaramillo, 1955 Prescriptions for oral chemotherapy were reviewed as follows: Oral Chemotherapy Order lenvatinib (Lenvima) 14 mg/day(10 mg x 1-4 mg x 1) capsule: Order details: ?? Dose: 14mg ?? Route: Oral ?? Quantity to be dispensed #: 60 capsules ?? Number of refills: 5 ?? Instructions: Take 2 capsules (14 mg) by mouth daily. Each box contains 30 capsules of 4 mg eachand 30 capsules of 10 mg each. Each dose is one capsule of 4 mg and one capsule of 10 mg. Call clinic before starting medication. Indications: thymic carcinoma ?? Cycle number and length: ongoing ?? Start date: Currently taking Plan of care compared to information in the medical record, including note from provider on May 01 May 08, 2021. The prescription was found To be complete and accurate. It was e-prescribed to [facility]. Oral Chemotherapy Assessment Note 05/12/2021 Monica Jaramillo, 1955 Assessment of Monica Jaramillo???s living situation reveals that she lives alone with family. The patient will be responsible for her medication administration. Medications reviewed, including prescription and non-prescription medications. Monica Jaramillo has insurance coverage issues and/or co-pay is not manageable. Assistance will be provided through ? working on options. The patient reports that he/she: ?? is able to swallow pills. ?? is able to open medication bottles/packages without problems. ?? is not experiencing any symptoms that will affect the ability to keep down medications (no nausea, vomiting, mucositis, or difficulty swallowing). ?? is willing to fill prescriptions with [facility]. What pharmacy would the patient like to have the medication dispensed from? [facility] unsure currently The patient verifies: ?? ability to read and understand the drug label instructions. ?? understanding of treatment plan with oral chemotherapy. ?? understanding that medication will be dispensed from ? pharmacy. This medication will be delivered to the home (instructed to call nurse if he/she does not hear from the pharmacy regarding delivery). ?? that she will need labs drawn on 05/15/21. documented in this encounter Plan of Treatment Upcoming Encounters Date Type Department Care Team (Late st Contact Info) Description 02/24/2024 9:00 AM EDT Office Visit Hematology/Oncology at [address] [phone] Shon Schneider MD [facility] [address] HEMATOLOGY AND ONCOLOGY [place], [place] [address] 02/24/2024 9:30 AM EDT Infusion Hematology Oncology at [address] [phone] 03/02/2024 11:00 AM EDT Office Visit Hematology/Oncology at [address] [phone] Shon Schneider MD [facility] [place] [address] [address] HEMATOLOGY AND ONCOLOGY [place], [place] [address] 03/02/2024 12:30 PM EDT Infusion Hematology Oncology at [address] [phone] 03/09/2024 10:00 AM EDT Office Visit Hematology/Oncology at [address] [phone] Shon Schneider MD [facility] [place] [address] [address] HEMATOLOGY AND ONCOLOGY [place], [place] [id number] 03/09/2024 10:30 AM EDT Infusion Hematology Oncology at [address] [phone] documented as of this encounter Goals Goal [...] on filedocumented in this encounter Care Teams Automation Test Engineer Relationship Specialty Start Date End Date Jerzy Vidal MD [address] [place] [address] [place] [address] PCP - [facility] Medicine 12/04/18 documented as of this encounter
--- OUTSIDE RECORDS SUMMARY | 2024-02-24 01:19 | XMS_ITS | Encounter Summary ---
Author Organization [facility] [place] [address] Care Team Providers Care Assessment Consultant Name Role Phone Jerzy Vdial MD Primary Care Provider [phone] Encounter Details Date Type Department Care Team (Late st Contact Info) Description 11/14/2020 Orders Only Hematology [place] [address] Shon Schneider MD [facility] [place] [address] Drug-induced nausea and vomiting Social History Tobacco Use Types Packs/Day Years [...] AM EDT Office Visit Hematology/Oncology at [address] [phone] Shon Schneider MD [facility] [place] [address] Ciara Pitts APRN [address] [place] [address] DR [place] [address] 02/24/2024 9:30 AM EDT Infusion Hematology Oncology at [address] [phone] 03/02/2024 11:00 AM EDT Office Visit Hematology/Oncology at [address] [phone] Shon Schneider MD [facility] [place] [address] HEMATOLOGY AND ONCOLOGY [place], [place] [address] 03/02/2024 12:30 PM EDT Infusion Hematology Oncology at [address] [phone] 03/09/2024 10:00 AM EDT Office Visit Hematology/Oncology at [address] [phone] Shon Schneider MD [facility] [place] [address] [address] HEMATOLOGY AND ONCOLOGY [place], [place] [address] 03/09/2024 10:30 AM EDT Infusion Hematology Oncology at [address] [phone] documented as of this encounter Goals Goal [...] as of this encounter Visit Diagnoses Diagnosis Drug-induced nausea and vomiting Nausea with vomiting Thymic carcinoma Malignant neoplasm of thymus documented in this encounter Care Teams Assessment Consultant Relationship Specialty Start Date End Date Jerzy Vidal MD [address] [place] [address] [place] [address] PCP - [facility] Medicine 12/04/18 documented as of this encounter
--- OUTSIDE RECORDS SUMMARY | 2024-02-24 01:19 | XMS_ITS | Encounter Summary ---
Author Organization [facility] [place] [address] Care Team Providers Care Patrol Community Service Officer Name Role Phone Jerzy Vidal MD Primary Care Provider [phone] Encounter Details Date Type Department Care Team (Late Contact Info) Description 05/14/2021 Orders Only Hematology/Oncology at [address] [phone] [address] HEMATOLOGY ONCOLOGY [place], [place] [phone] Hypomagnesemia; Thymic carcinoma Social History Tobacco Use Types [...] AM EDT Office Visit Hematology/Oncology at [address] [phone] Shon Schneider MD [facility] [place] [address] [address] HEMATOLOGY AND ONCOLOGY [place], [place] [phone] 02/24/2024 9:30 AM EDT Infusion Hematology Oncology at [address] [phone] 03/02/2024 11:00 AM EDT Office Visit Hematology/Oncology at [address] [phone] Shon Schneider MD [facility] [place] [address] [address] HEMATOLOGY AND ONCOLOGY [place], [place] [id number] 03/02/2024 12:30 PM EDT Infusion Hematology Oncology at [address] [phone] 03/09/2024 10:00 AM EDT Office Visit Hematology/Oncology at [address] [phone] Shon Schneider MD [facility] [place] [address] [address] [place] [address] 03/09/2024 10:30 AM EDT Infusion Hematology Oncology at [address] [phone] documented as of this encounter Goals Goal [...] metabolism 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
--- OUTSIDE RECORDS SUMMARY | 2024-02-24 01:19 | XMS_ITS | Encounter Summary ---
Author Organization [facility] [place] [address] Care Team Providers Care Classification And Treatment Director Name Role Phone Jerzy Vidal MD Primary Care Provider [phone] Encounter Details Date Type Department Care Team (Late Contact Info) Description 06/15/2021 Orders Only Hematology [place] [address] Shon Schneider MD [facility] [place] [address] Social History Tobacco Use Types Packs/Day Years [...] 9:00 AM EDT Office Visit Hematology/Oncology at [address] [phone] Shon Schneider MD [facility] [place] [address] Ciara Pitts APRN [address] [place] [address] [place] [address] 02/24/2024 9:30 AM EDT Infusion Hematology Oncology at [address] [phone] 03/02/2024 11:00 AM EDT Office Visit Hematology/Oncology at [address] [phone] Shon Schneider MD [facility] [place] [address] [place] [address] 03/02/2024 12:30 PM EDT Infusion Hematology Oncology at [address] [phone] 03/09/2024 10:00 AM EDT Office Visit Hematology/Oncology at [address] [phone] Shon Schneider MD [facility] [place] [address] [address] [place] [address] 03/09/2024 10:30 AM EDT Infusion Hematology Oncology at [address] [phone] documented as of this encounter Goals Goal Patient Goal Type Associated Problems Recent Progress Patient-Stated? Author DH Home Medication Compliance and Understanding Patient Facing Action Plan On track( 019 3:22 PM EST) Ivana Ashraf, [facility] Note: Remain 95% or better adherent to chemotherapy without severe side effects as assessed by days supply and patient reported adverse events at each refill documented as of this encounter Visit Diagnoses Not on filedocumented in this encounter Care Teams Classification And Treatment Director Relationship Specialty Start Date End Date Jerzy Vidal MD [address] [place] [address] [place] [address] PCP - [facility] 12/04/18 documented as of this encounter
--- OUTSIDE RECORDS SUMMARY | 2024-02-24 01:19 | XMS_ITS | Encounter Summary ---
Author Organization [facility] Address [facility] [place] [address] Care Team Providers Care Hydro Station Supervisor Name Role Phone Jerzy Vidal MD Primary Care Provider [phone] Encounter Details Date Type Department Care Team (Late st Contact Info) Description 02/20/2021 1:00 PM EDT Office Visit Hematology/Oncology at [address] [phone] Shon Schneider MD [facility] [place] [address] Ivory Flynn MEMBERSHIP DIRECTOR [address] [place] [address] DR HEMATOLOGY ONCOLOGY [place], [place] [phone] Thymic carcinoma; Hypothyroidism, acquired; jaundice due to polycythemia; Polycythemia; Other depression; Hypomagnesemia Social History Tobacco Use Types Packs/Day Years Used Date Smoking Tobacco: Never Smokeless Tobacco: Never Sex and Gender Information Value Date Recorded Sex Assigned at Not on file Gender Identity Not on file Sexual Orientation Not on file documented as of this encounter Last Filed Vital Signs Vital Sign Reading Time Taken Comments Blood Pressure 122/98 02/20/2021 1:06 PM EDT Pulse 61 02/20/2021 1:06 PM EDT Temperature 36.1 ??C (97 ??F) 02/20/2021 1:06 PM EDT Respiratory Rate 20 02/20/2021 1:06 PM EDT Oxygen Saturation 99% 02/20/2021 1:06 PM EDT Inhaled Oxygen Concentration - - Weight 99.2 kg (218 lb 12.8 oz) 02/20/2021 1:06 PM EDT Height 175.3 cm (5' 9.02) 02/20/2021 1:06 PM ED T Body Mass Index 32.3 02/20/2021 1:06 PM EDT documented in this encounter Progress Notes * Shon Schneider MD - 02/20/2021 1:00 PM EDT Subjective: Patient ID: Monica [...] atelectasis. transferred to [facility] for further evaluation and workup and had [...] Biopsy of mediastinal mass 03/29 Path ([facility] review) - Mediastinum, mass, biopsy: 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 [facility] - CONSULT SLIDES FROM [facility]; [place], [place]: A. MEDIASTINUM, MASS, BIOPSY ([id number]; 03/22/2017): ? 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 ?Immunohistochemistry performed at the outside institution and reviewed at [facility] demonstrates the following staining profile in lesional cells: ? Positive - AE1/AE3, p40, PAX8, CD117, CD5(multifocal), CK7(scattered cells), synaptophysin, chromogranin ? Negative - CK20, TTF-1, GATA3, CD34 ? The immunohistochemical profile supports the above diagnosis. ? Ki67 (MIB-1) proliferation index performed at the referring institution and reviewed at [facility] is focally up to ~30%. NOTE: While diffuse synaptophysin and chromogranin expression is unusual for conventional thymic carcinoma, the overall histomorphology and immunophenotype is most in keeping with THYMIC SQUAMOUS CARCINOMA.?The extent of PAX8 and CD117 staining would be unusual for Nut carcinoma. B. MEDIASTINUM, ANTERIOR, 4.5 CM, ULTRASOUND GUIDED FINED NEEDLE ASPIRATION ([id number]; 03/22/17): The cytologic preparations were not reviewed [...] Second opinion with Dr. Roddy Vega in [place]. They reviewed the pathology and concurred they [...] with pembrolizumab L. CT c/a/p 11/06/19 ([facility] second read) - IMPRESSION [...] atrial fibrillation 3. HTN 4. Echocardiogram 06/20/18 () - Summary: 1. Preserved LV function with [...] is accompanied to clinic today by her Royce. She is anxious about the scan result. She has had some nauesa and has lost another 10#. She says that for 2-3 days out of every two weeks that she has nausea. She takes the anti-nausea medications which may help. She then has a couple of days that she doesn't want to eat and then has a good week. She took remeron but tolerated it poorly. She s ays it felt like she wanted to jump out of her skin. It has been a very stressful time for her because of medical problems that her is going through and she feels she could use an anti-depressant. She denies SOB. Her bowels are regular. No diarrhea or stomatitis. No fevers or chills. No chest pain and no pain at all. She has mild LE edema at the end of the day, no change. Soc Hx: , lives in [place], [place] Tob - Never Etoh - rare Works [...] not in acute distress. Appearance: She is well-developed. HENT: Head: Normocephalic and atraumatic. Mouth/Throat: Pharynx: No oropharyngeal exudate. Eyes: General: No scleral icterus. Cardiovascular: Rate and Rhythm: Normal rate and regular rhythm. Pulmonary: Effort: Pulmonary effort is normal. No respiratory distress. Breath sounds: No wheezing or rales. Abdominal: General: There is no distension. Palpations: Abdomen is soft. There is no mass. Tenderness: There is no abdominal tenderness. There is no guarding. Lymphadenopathy: Cervical: No cervical adenopathy. Upper Body: Right upper body: No supraclavicular adenopathy. Left upper body: No supraclavicular adenopathy. Skin: General: Skin is warm and dry. Findings: No rash. Neurological: Mental Status: She is alert. Coordination: Coordination normal. Psychiatric: Behavior: Behavior normal. Labs: WBC/ANC - 5.08/2259, Hgb/Hct - 17.8/50, Plts - 151,000. BUN/Cr - 11/1.3. Na - 133, Mg - 1.4, Alb - 3.0, t bili - 1.2. Lytes and LFTs o/w unremarkable. LDH - 469 (313-618); TFTs (02/18/21): TSH - 82.14, FT4 - 0.8. CT personally reviewed, report above Assessment and Plan: Monica Jaramillo is 65 [...] pembrolizumab. I spoke with Dr. Vega at [facility]. There were no clinical trials available there. [...] spoke with Dr. Shon Ramon at [facility] [place]. He agreed that gemcitabine plus capecitabine is [...] effusions. The most recent CT, done 02/10/21 shows a similar picture, ie stable mediastinal mass and epicardial LN with decrease in pleural effusion. She will continue the lenavtinib at the same dose, 24 mg per day and we will see her in 4 weeks. She has become polycythemic. The reason for that is not clear. The WBC and Plts are WNL. The Hgb atthe time of diagnosis of the thymic carcinoma in 2016 was WNL. I see one case report of an EPO producing thymic carcinoma causing erythrocytosis. I will see one paper that mentions an association of p olycythemia with lenvatinib use, but I do not see it mentioned otherwise. Will check an EPO level, JAK2 and BCR/ABL PCR. I will have her continue the lenvatinib for now and see her again in two weeksto review these labs. She has a very elevated TSH. She is on synthroid, current dose 75 mcg/day. Will increase to 100 mcg/day. Wellbutrin was added for depression. She did not tolerate remeron. She and Royce received their second covid vaccine shot on 09/26/20 documented in this encounter Plan of Treatment Upcoming Encounters Date Type Department Care Team (Late st Contact Info) Description 02/24/2024 9:00 AM EDT Office Visit Hematology/Oncology at [address] [phone] Shon Schneider MD [facility] [place] [address] Ciara Pitts APRN [address] [place] [address] DR [place] [address] 02/24/2024 9:30 AM EDT Infusion Hematology Oncology at [address] [phone] 03/02/2024 11:00 AM EDT Office Visit Hematology/Oncology at [address] [phone] Shon Schneider MD [facility] [place] [address] HEMATOLOGY AND ONCOLOGY [place], [place] [phone] 03/02/2024 12:30 PM EDT Infusion Hematology Oncology at [address] [phone] 03/09/2024 10:00 AM EDT Office Visit Hematology/Oncology at [address] [phone] Shon Schneider MD [facility] [place] [address] HEMATOLOGY AND ONCOLOGY [place], [place] [phone] 03/09/2024 10:30 AM EDT Infusion Hematology Oncology at [address] [phone] documented as of this encounter Goals Goal [...] neoplasm of thymus Hypothyroidism, acquired Unspecified hypothyroidism jaundice due to polycythemia jaundice from other excessive hemolysis Polycythemia Polycythemia vera Other depression Hypomagnesemia 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
--- OUTSIDE RECORDS SUMMARY | 2024-02-24 01:19 | XMS_ITS | Encounter Summary ---
Author Organization [facility] [place] [address] Care Team Providers Care Air Sampling And Monitoring Name Role Phone Jerzy Vidal MD Primary Care Provider [phone] Reason for Visit * Reason Comments Other Mediport flush Encounter Details Date Type Department Care Team (Late Contact Info) Description 02/20/2021 1:30 PM EDT Infusion Hematology Oncology at [address] [phone] Thymic carcinoma Social History Tobacco Use Types Packs/Day Years Used Date Smoking Tobacco: Never Smokeless Tobacco: Never Sex and Gender Information Value Date Recorded Sex Assigned at Not on file Gender Identity Not on file Sexual Orientation Not on file documented as of this encounter Progress Notes * Marguerite Calov RN - 02/20/2021 1:30 PM EDT INFUSION THERAPY ADMINISTRATION NOTES DIAGNOSIS: 1. Thymic carcinoma REASON FOR VISIT: MEDIPORT FLUSH ONLY IV ACCESS: Mediport GAUGE: 19G BLOOD RETURN: yes ANY S/S OF INFECTION/EXTRAVASATIONS: no signs of IV complications observed IV FLUSHED WITH: 20cc NS and 500 units Heparin IV DISCONTINUED: yes ASSESSMENT: Patient tolerated treatment well. PLAN: Return to clinic per routine. documented in this encounter Plan of Treatment Upcoming Encounters Date Type Department Care Team ([facility] Contact Info) Description 02/24/2024 9:00 AM EDT Office Visit Hematology/Oncology at [address] [phone] Shon Schneider MD [facility] [place] [place] [address] [address] HEMATOLOGY AND ONCOLOGY [place], [place] [address] [phone] 02/24/2024 9:30 AM EDT Infusion Hematology Oncology at [address] [phone] 03/02/2024 11:00 AM EDT Office Visit Hematology/Oncology at [address] [phone] Shon Schneider MD [facility] [place] [address] [address] HEMATOLOGY [place] [address] 03/02/2024 12:30 PM EDT Infusion Hematology Oncology at [address] [phone] 03/09/2024 10:00 AM EDT Office Visit Hematology/Oncology at [address] [phone] Shon Schneider MD [facility] [place] [address] [address] HEMATOLOGY AND [place]OGY [place], [place] [address] 03/09/2024 10:30 AM EDT Infusion Hematology Oncology at [address] [phone] documented as of this encounter Goals Goal Patient Goal Type Associated Problems Recent Progress Patient-Stated? 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
--- OUTSIDE RECORDS SUMMARY | 2024-02-24 01:19 | XMS_ITS | Encounter Summary ---
Author Organization [facility] [place] [address] Care Team Providers Care Drying Machine Receiver Name Role Phone Jerzy Vidal MD Primary Care Provider [phone] Encounter Details Date Type Department Care Team (Latest Contact Info) Description 05/08/2021 3:30 PM EST TH Visit (TeleHealth) Hematology/Oncology at [address] [phone] Shon Schneider MD [facility] [place] [address] Thymic carcinoma; Hypothyroidism, acquired; Hypomagnesemia Social History Tobacco Use Types Packs/Day Years Used Date Smoking Tobacco: Never Smokeless Tobacco: Never Sex and Gender Information Value Date Recorded Sex Assigned at Not on file Gender Identity Not on file Sexual Orientation Not on file documented as of this encounter Progress Notes * Shon Schneider MD - 05/08/2021 3:30 PM EST Subjective: Patient ID: Monica [...] effusion with compression atelectasis. transferred to [facility] for further evaluation and workup [...] Biopsy of mediastinal mass 03/29 Path ([facility] review) - Mediastinum, mass, biopsy: 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 [facility] - CONSULT SLIDES FROM [facility]; [place], [place]: A. MEDIASTINUM, MASS, BIOPSY ([id number]; 03/22/2017): ? 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 ?Immunohistochemistry performed at the outside institution and reviewed at [facility] demonstrates the following staining profile in lesional cells: ? Positive - AE1/AE3, p40, PAX8, CD117, CD5(multifocal), CK7(scattered cells), synaptophysin, chromogranin ? Negative - CK20, TTF-1, GATA3, CD34 ? The immunohistochemical profile supports the above diagnosis. ? Ki67 (MIB-1) proliferation index performed at the referring institution and reviewed at [facility] is focally up to ~30%. NOTE: While diffuse synaptophysin and chromogranin expression is unusual for conventional thymic carcinoma, the overall histomorphology and immunophenotype is most in keeping with THYMIC SQUAMOUS CARCINOMA.?The extent of PAX8 and CD117 staining would be unusual for Nut carcinoma. B. MEDIASTINUM, ANTERIOR, 4.5 CM, ULTRASOUND GUIDED FINED NEEDLE ASPIRATION ([id number]; 03/22/17): The cytologic preparations were not reviewed [...] Second opinion with Dr. Roddy Vega in [place]. They reviewed the pathology and concurred they [...] with pembrolizumab L. CT c/a/p 11/06/19 ([facility] second read) - IMPRESSION 1. Worsening left-sided [...] Restarted 05/01/21 at 14 mg per day. 2. H/o atrial fibrillation 3. HTN 4. [...] with that. Soc Hx: , lives in [place], [place] Tob - Never Etoh - rare [...] Psychiatric: Mood and Affect: Mood normal. Labs: (05/06/21): WBC/ANC/AMC - 4.07/2749/546, Hgb/Hct - 12.2/37.1, Plts - 166,000. BUN/Cr - 26/1.0.Mg - 1.3. Lytes o/w unremarkable (05/01/21): WBC/ANC - 6., Hgb/Hct - 13/36.7, [...] (02/18/21): TSH - 82.14, FT4 - 0.8. (): TSH - 45.41 (04/15/21): TSH - 111.25; [...] pembrolizumab. I spoke with Dr. Vega at [facility]. There were no clinical trials available [...] Ramon at [facility]. He agreed that gemcitabine plus capecitabine is [...] few days after she restarted the lenvatinib). I was concerned last week about her renal function. That has normalized and was likely prerenal. The FT4 was toward the upper end of normal at the time of the last visit. She continued the synthroid at 125 mcg/day. The TFTs were not rechecked. The hypothyroidism is felt likely to have been related to the lenvatinib. She will continue the same dose of [...] dose and recheck. Will continue to follow. She received her second covid vaccine shot on 09/26/20 I provided care to the patient today via telephone call. The total time associated with this visit was 25 minutes. documented in this encounter Plan of Treatment Upcoming Encounters Date Type Department Care Team (Late st Contact Info) Description 02/24/2024 9:00 AM EDT Office Visit Hematology/Oncology at [address] [phone] Shon Schneider MD [facility] [place] [address] Ciara Pitts, [address] HEMATOLOGY [place] [address] 02/24/2024 9:30 AM EDT Infusion Hematology Oncology at [address] [phone] 03/02/2024 11:00 AM EDT Office Visit Hematology/Oncology at [address] [phone] Shon Schneider MD [facility] [place] [address] [address] HEMATOLOGY AND ONCOLOGY [place], [place] [address] 03/02/2024 12:30 PM EDT Infusion Hematology Oncology at [address] [phone] 03/09/2024 10:00 AM EDT Office Visit Hematology/Oncology at [address] [phone] Shon Schneider MD [facility] [place] [address] Ciara Pitts [address] HEMATOLOGY [place] [address] 03/09/2024 10:30 AM EDT Infusion Hematology Oncology at [address] [phone] documented as of this encounter Goals Goal [...] neoplasm of thymus Hypothyroidism, acquired Unspecified hypothyroidism Hypomagnesemia 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
--- OUTSIDE RECORDS SUMMARY | 2024-02-24 01:19 | XMS_ITS | Encounter Summary ---
Author Organization [facility] [place] [address] Care Team Providers Care Fuel Tank Sealer And Tester Name Role Phone Jerzy Vidal MD Primary Care Provider [phone] Reason for Visit * Reason Comments Medication Refill Encounter Details Date Type Department Care Team (Late Contact Info) Description 03/02/2021 Refill Hematology/Oncology at [address] [phone] Shon Schneider MD [facility] [place] [address] Social History Tobacco Use Types Packs/Day Years [...] AM EDT Office Visit Hematology/Oncology at [address] [phone] Shon Schneider MD [facility] [place] [address] Ciara Pitts APRN [address] [place] [address] DR HEMATOLOGY AND ONCOLOGY [place], [place] [address] 02/24/2024 9:30 AM EDT Infusion Hematology Oncology at [address] [phone] 03/02/2024 11:00 AM EDT Office Visit Hematology/Oncology at [address] [phone] Shon Schneider MD [facility] [place] [address] HEMATOLOGY AND ONCOLOGY [place], [place] [id number] 03/02/2024 12:30 PM EDT Infusion Hematology Oncology at [address] [phone] 03/09/2024 10:00 AM EDT Office Visit Hematology/Oncology at [address] [phone] Shon Schneider MD [facility] [place] [address] [address] [place] [address] 03/09/2024 10:30 AM EDT Infusion Hematology Oncology at [address] [phone] documented as of this encounter Goals Goal [...] on filedocumented in this encounter Care Teams Fuel Tank Sealer And Tester Relationship Specialty Start Date End Date Jerzy Vidal MD [address] [place] [address] [place] [address] PCP - [facility] Medicine 12/04/18 documented as of this encounter
--- OUTSIDE RECORDS SUMMARY | 2024-02-24 01:20 | XMS_ITS | Encounter Summary ---
Author Organization [facility] Address [facility] [place] [address] Care Team Providers Care Healthcare Facility Administrator Name Role Phone Jerzy Vidal MD Primary Care Provider [phone] Encounter Details Date Type Department Care Team (Late st Contact Info) Description 06/20/2020 10:30 AM EST Office Visit Hematology/Oncology at [address] [phone] Shon Schneider MD [facility] [place] [address] Ivory Flynn, CHIEF OF HOSPITAL MEDICINE [address] [place] [address] DR HEMATOLOGY ONCOLOGY [place], [place] [phone] Thymic carcinoma Social History Tobacco Use Types Packs/Day Years Used Date Smoking Tobacco: Never Smokeless Tobacco: Never Sex and Gender Information Value Date Recorded Sex Assigned at Not on file Gender Identity Not on file Sexual Orientation Not on file documented as of this encounter Last Filed Vital Signs Vital Sign Reading Time Taken Comments Blood Pressure 123/63 06/20/2020 10:32 AM EST Pulse 85 06/20/2020 10:32 AM EST Temperature 36.1 ??C (97 ??F) 06/20/2020 10: 32 AM EST Respiratory Rate 20 06/20/2020 10:3 2 AM EST Oxygen Saturation 96% 06/20/2020 10: 32 AM EST Inhaled Oxygen Concentration - - Weight 124.6 kg (274 lb 12.8 oz) 2020 10:32 AM EST Height 176 cm (5' 9.29) 06/20/2020 10: 32 AM EST Body Mass Index 40.24 06/20/2020 10:32 AM EST documented in this encounter Progress Notes * Ivory Flynn, CHIEF OF HOSPITAL MEDICINE - 06/20/2020 10:30 AM EST Subjective: Patient ID: Monica Jaramillo is a 64 y.o. female. HPI Patient ID: Monica Jaramillo [...] effusion with compression atelectasis. ?? transferred to [facility] for further [...] Biopsy of mediastinal mass 03/29 Path ([facility] review) - Mediastinum, mass, biopsy: 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 ?? [facility] - CONSULT SLIDES FROM [facility]; [place], [place]: A. MEDIASTINUM, MASS, BIOPSY ([id number]; 03/22/2017): ? 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 ?Immunohistochemistry performed at the outside institution and reviewed at [facility] demonstrates the following staining profile in lesional cells: ? Positive - AE1/AE3, p40, PAX8, CD117, CD5(multifocal), CK7(scattered cells), synaptophysin, chromogranin ? Negative - CK20, TTF-1, GATA3, CD34 ? The immunohistochemical profile supports the above diagnosis. ? Ki67 (MIB-1) proliferation index performed at the referring institution and reviewed at [facility] is focally up to ~30%. NOTE: While diffuse synaptophysin and chromogranin expression is unusual for conventional thymic carcinoma, the overall histomorphology and immunophenotype is most in keeping with THYMIC SQUAMOUS CARCINOMA.?The extent of PAX8 and CD117 staining would be unusual for Nut carcinoma. B. MEDIASTINUM, ANTERIOR, 4.5 CM, ULTRASOUND GUIDED FINED NEEDLE ASPIRATION ([id number]; 03/22/17): The cytologic preparations were not reviewed [...] Second opinion with Dr. Roddy Vega in [place]. ??They reviewed the pathology and concurred they [...] with pembrolizumab L. CT c/a/p 11/06/19 ([facility] second read) - IMPRESSION 1. ??Worsening left-sided [...] indices suggesting LV filling pressures. (LVEF 60-65%). ? 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 ?? Fam Hx: No h/o cancer INTERVAL HPI 06/20/20 Monica Jaramillo is a 64 yo female with stage IV thymic carcinoma diagnosed in 03/29. (Refer to extensive history summarized above.) Monica returns to the [facility] oncology clinic alone today for evaluation and C6D8 treatment with Gemcitabine and oral Capecitabine 1000 mg bid days 1-14. Monica today reports no new side effects or toxicities related to Gemzar/Capecitabine treatment. [place] feeling very well. She denies any changes in breathing, no new cough, no chest pain. She tells me she has not needed to use her pulse oximeter or her inhaler this week as her breathing has felt so good. She talked about recognizing the feeling of worsening pleural effusion and she has not noticed that feeling. Previously Monica had intermittent upper abdominal bloating and gassy periods she thinks is related to her treatments. Even this has become less noticeable lately, says Monica. She is eating well and her bowels are moving regularly. She denies mouth sores, or burning, redness or swelling in her hands and feet. No nausea reported with the Capecitabine. Monica continues to take 1000mg bid on days 1-14, off days 15-21. We talked about the timing of her next restaging CT, which we will plan following C7 unless she becomes symptomatic. Monica is in agreement with this plan. . Allergies Allergen Reactions ??? Carboplatin ??? Penicillins Hives ??? Pollen Extracts Other (See Comments) rhinorrhea Current Medications ??? aMILoride (Midamor) 5 mg Tablet ??? CAPEcitabine (XELODA) chemo tablet ??? ALBUTEROL INHL ??? levothyroxine (Synthroid) 25 mcg Tablet ??? magnesium oxide (MAG-OX) 400 mg Tablet ??? acetaminophen (TYLENOL) 500 mg Tablet ??? ascorbic acid, vitamin C, (VITAMIN C) 500 mg Tablet, Chewable ??? prochlorperazine (COMPAZINE) 5 mg Tablet ??? meTOPROLOL succinate (TOPROL-XL) 200 mg Tablet Sustained Release 24 hr ??? DILTiazem (CARDIZEM CD) 240 mg Capsule, Sust. Release 24 hr ??? apixaban (ELIQUIS) 5 mg Tablet ??? multivitamin (THERAGRAN) Tablet Review of Systems Constitutional: Negative for activity change, appetite change, fatigue and fever. HENT: Negative for mouth sores and trouble swallowing. Eyes: Negative. Respiratory: Positive for shortness of breath. Negative for cough. Mild with exertion Cardiovascular: Negative for chest pain and palpitations. Gastrointestinal: Positive for abdominal distention. Negative for constipation, diarrhea and nausea. Gassy/bloating feeling diminished this cycle. Genitourinary: Negative. Musculoskeletal: Negative. Skin: Negative for color change and rash. Neurological: Negative for dizziness, numbness and headaches. Hematological: Negative. Psychiatric/Behavioral: Negative. Objective: Physical Exam Constitutional: General: She is not in acute distress. Appearance: Normal appearance. HENT: Mouth/Throat: Mouth: Mucous membranes are moist. Pharynx: Oropharynx is clear. No posterior oropharyngeal erythema. Eyes: Extraocular Movements: Extraocular movements intact. Cardiovascular: Rate and Rhythm: Normal rate and regular rhythm. Heart sounds: Normal heart sounds. Pulmonary: Effort: No respiratory distress. Breath sounds: No wheezing or rales. Comments: Breath sounds diminished LLL Abdominal: General: Bowel sounds are normal. Palpations: Abdomen is soft. Tenderness: There is no abdominal tenderness. Musculoskeletal: Right lower leg: No edema. Left lower leg: No edema. Lymphadenopathy: Cervical: No cervical adenopathy. Upper Body: Right upper body: No supraclavicular adenopathy. Left upper body: No supraclavicular adenopathy. Skin: General: Skin is warm and dry. Findings: No erythema or rash. Neurological: Mental Status: She is alert and oriented to person, place, and time. Gait: Gait normal. Psychiatric: Mood and Affect: Mood normal. Thought Content: Thought content normal. BP 123/63 (Patient Position: Sitting) Pulse 85 Temp 36.1 ??C (97 ??F) (Temporal) Resp 20 Ht176 cm (5' 9.29) Wt 124.6 kg (274 lb 12.8 oz) SpO2 96% BMI 40.24 kg/m?? LABS 06/19/20 WBC 4.4; ANC 2.62; H/H 11.7/ 38.0; PLT 176; BUN 9; CREAT 0.60; ALP 66; ALT 37; AST 55; CA++ 9.7 Assessment: Monica Jaramillo is a 64 yo female with stage IV thymic carcinoma diagnosed in 03/29. (Refer to extensive history summarized above.) Monica returns to the [facility] oncology clinic alone today for evaluation and C6D8 treatment with Gemcitabine and oral Capecitabine 1000 mg bid days 1-14. Monica continues to tolerate this regimen extremely well with little to no toxicities noted. We reviewed CBC, CMP today which are appropriate for treatment. Plan: Proceed with C6D8 Gemzar/Capecitabine treatment today. RTC in 2 weeks for C7D1 Gemzar/Capecitabine. Plan restaging Chest CT after C7 in early July. documented in this encounter Plan of Treatment Upcoming Encounters Date Type Department Care Team (Late st Contact Info) Description 02/24/2024 9:00 AM EDT Office Visit Hematology/Oncology at [address] [phone] Shon Schneider MD [facility] [place] [address] Ciara Pitts [address] HEMATOLOGY [place] [address] 02/24/2024 9:30 AM EDT Infusion Hematology Oncology at [address] [phone] 03/02/2024 11:00 AM EDT Office Visit Hematology/Oncology at [address] [phone] Shon Schneider MD [facility] [place] [address] Ciara Pitts [address] HEMATOLOGY [place] [address] 03/02/2024 12:30 PM EDT Infusion Hematology Oncology at [address] [phone] 03/09/2024 10:00 AM EDT Office Visit Hematology/Oncology at [address] [phone] Shon Schneider MD [facility] [place] [address] Ciara Pitts APRN [address] [place] [address] DR HEMATOLOGY AND ONCOLOGY [place], [place] [id number] 03/09/2024 10:30 AM EDT Infusion Hematology Oncology at [address] [phone] documented as of this encounter Goals Goal [...] thymus documented in this encounter Care Teams Healthcare Facility Administrator Relationship Specialty Start Date End Date Jerzy Vidal MD [address] [place] [address] [place] [address] PCP - General [facility] Medicine 12/04/18 documented as of this encounter
--- OUTSIDE RECORDS SUMMARY | 2024-02-24 01:20 | XMS_ITS | Encounter Summary ---
Author Organization [facility] Address [facility] [place] [address] Care Team Providers Care Tmd Teacher Name Role Phone Jerzy Vidal MD Primary Care Provider [phone] Encounter Details Date Type Department Care Team (Late st Contact Info) Description 09/26/2020 2:00 PM EDT Office Visit Hematology/Oncology at [address] [phone] Shon Schneider MD [facility] [place] [address] Thymic carcinoma; Drug-induced nausea and vomiting; Hypothyroidism, acquired Social History Tobacco Use Types Packs/Day Years Used Date Smoking Tobacco: Never Smokeless Tobacco: Never Sex and Gender Information Value Date Recorded Sex Assigned at Not on file Gender Identity Not on file Sexual Orientation Not on file documented as of this encounter Last Filed Vital Signs Vital Sign Reading Time Taken Comments Blood Pressure 134/87 09/26/2020 2:06 PM EDT Pulse 76 09/26/2020 2:06 PM EDT Temperature 36.1 ??C (97 ??F) 09/26/2020 2:06 PM EDT Respiratory Rate 20 09/26/2020 2:06 PM EDT Oxygen Saturation 96% 09/26/2020 2:06 PM EDT Inhaled Oxygen Concentration - - Weight 116.3 kg (256 lb 6.4 oz) 09/26/2020 2:06 PM EDT Height 175.3 cm (5' 9.02) 09/26/2020 2:06 PM ED T Body Mass Index 37.85 09/26/2020 2:06 PM EDT documented in this encounter Progress Notes * Shon Schneider MD - 09/26/2020 2:00 PM EDT Subjective: Patient ID: Monica Jaramillo is a 65 y.o. female. Problem List: 1. Thymic carcinoma, [...] B. Biopsy of mediastinal mass 03/29 Path ([facility] review) - Mediastinum, mass, biopsy: 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 [facility] - CONSULT SLIDES FROM [facility]; [place], [place]: A. MEDIASTINUM, MASS, BIOPSY ([id number]; 03/22/2017): ? MALIGNANT THYMIC EPITHELIAL NEOPLASM consistent [...] 4.5 CM, ULTRASOUND GUIDED FINED NEEDLE ASPIRATION ([id number]; 03/22/17): The cytologic preparations were not reviewed [...] Second opinion with Dr. Roddy Vega in [place]. They reviewed the pathology and concurred they [...] therapy with pembrolizumab L. CT c/a/p 11/06/19 ([facility] second read) - IMPRESSION 1. Worsening left-sided [...] lenvatinib on 08/18/20, 24 mg PO daily 2. H/o atrial fibrillation 3. HTN 4. [...] suggesting LV filling pressures. (LVEF 60-65%). HPI Ms. Jraamillo is seen in f/u thymic carcinoma. The history is summarized above. She is accompanied to clinic today by her Royce. She is doing fairly well. She is having intermittent waves of nausea. This has started in the last two weeks. She may have it for a day and then not have it for several days. She has prochlorperazine at home but hasn't taken it because it hasexpired. Her weight is a few pounds lower. Her knees have been bothering her and she has started to use a walker when she is out and about. She denies SOB. She had a thoracentesis on 08/19 because of dyspnea and it has not been an issue since then. She says they took off a little over 600 cc and feltmuch better after that. Her bowels are regular. No diarrhea or stomatitis. No fevers or chills. No chest pain and no pain at all. She has mild LE edema at the end of the day, no change. 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 Fam Hx: No h/o cancer Review of Systems Constitutional: Negative for activity change, appetite change, fatigue, fever and unexpected weightchange. HENT: Negative. Respiratory: Positive for shortness of breath (intermittent VASQUEZ). Negative for cough. Cardiovascular: Negative for chest pain and leg swelling. Gastrointestinal: Bowel habits - see above Genitourinary: Negative. Musculoskeletal: Negative. Skin: Negative. Neurological: Negative. Hematological: Negative. Psychiatric/Behavioral: Negative. All other systems reviewed and are negative. Objective: Physical Exam Constitutional: She appears well-developed and well-nourished. No distress. HENT: Head: Normocephalic and atraumatic. Mouth/Throat: No oropharyngeal exudate. Eyes: No scleral icterus. Cardiovascular: Normal rate and regular rhythm. Pulmonary/Chest: Effort normal. No respiratory distress. She has no wheezes. She has no rales. Abdominal: Soft. She exhibits no distension and no mass. There is no abdominal tenderness. There isno guarding. Musculoskeletal: General: No edema. Lymphadenopathy: She has no cervical adenopathy. She has no axillary adenopathy. Right: No supraclavicular adenopathy present. Left: No supraclavicular adenopathy present. Neurological: She is alert. Coordination normal. Skin: Skin is warm and dry. No rash noted. Psychiatric: She has a normal mood and affect. Her behavior is normal. Vitals reviewed. Labs: WBC/ANC - 7.01/2950, Hgb/Hct - 15.8/48, Plts - 87,000. BUN/Cr - 12/0.7. Na - 136, Alb - 3.4, Tbili - 1.5, AST - 53, Mg - 1.3. Lytes and LFTs o/w unremarkable. LDH - 469 (313-618); TFTs (07/24/20): TSH - 1.78. Assessment and Plan: Ms. Jaramillo is 65 yo and seen in f/u of thymic carcinoma, as summarized above. The diagnosis was made in 03/2017. She initially received therapy with carboplatin and paclitaxel and received 16 cycles. During the carboplatin infusion with cycle 16, she had an infusion reaction consisting of flushing, tachycardia and hypotension which resolved with additional dexamethasone and benadryl. She has also had significant problems with myelosuppression including anemia and thrombocytopenia. She received a blood transfusion on 04/15/18 for a hemoglobin of 7. The CT done 05/11/18 showed the disease to be stable per the report. Given the infusion reaction tothe carboplatiin as well as the cumulative toxicites, [...] pembrolizumab. I spoke with Dr. Vega at [facility]. There were no clinical trials available there. His thought was to try sunitinib. She began sunitinib on 06/24/18 (50 pg PO per [...] 37.5 mg/day, 2 weeks followed by one w craig off, with cycles repeated every three weeks. She has tolerated that well. She had a restaging CT scan done on 09/26/18 which was stable compared with 04/2019. Therefore, the sutent was continued. She had problems with prolonged [...] two weeks on and 1 week off. The restaging CT scan done 04/04/19 showed increased size of a pericardial LN and was otherwise stable. The change in the node was relatively small and we decided to continue the sunitinib and repeatthe CT. She had a restaging CT scan done 08/10/19. This showed two small but new nodules in the leftlower lung. The pericardial nodule was read as [...] dose and schedule. Her strong preference was tochange therapy to immunotherapy with pembrolizumab. She has a high PD-L1 score and is aware of a number of pts through an online group who have had good results with this. She is aware of the possibility of potentially serious and sometimes fatal autoimmune effects, including myocarditis, among others. Baseline ECG and Echo were done and the results are under scanned documents. She began immunotherapy with pembrolizumab on 08/17/19 and has tolerated this well. The anemia resolved and the platelet count and WBC are WNL as well The TSH and T4 are WNL. Will have her continue the same dose of synthroid and recheck in three weeks. 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 She had an elevated fractional excretion of magnesiumand therefore in 01/2019 was started on amiloride. A restaging CT scan was done on 11/06/19. The anterior mediastinal mass was stable but there was worsening of nodularity along the anterior and left side of the pericardium, an increased right upper paratracheal LN vs mass and increased left sided pleural and fissural nodularity. The LLL nodules seen on the prior scan had resolved. We talked about the scan result and options, essentially continuing the pembrolizumab for a longer duration vs changing therapy. We decided to continue the pembrolizumab. A CT was repeated on 02/06/20. This showed progression of the pleural nodularity on the left with anincrease in a small left pleural effusion. We reviewed the images together today and I agreed that it did appear that there was progession of the pleural disease. Given this, we decided to stop the pembrolizumab. We attempted to get lenvatinib but this was denied by her insurance. I spoke with Dr. Karuna Ramsey. His suggestion was to try gemcitabine plus capecitabine. I also spoke with Dr. Shon Ramon at [facility]. He agrees that gemcitabine plus capecitabine is very reasonable and that he would consider using lenvatinib in the next line setting. She began therapy with gemcitabine plus capecitabine on 02/29/20 and received seven [address] done on 07/24/20 showed an increase in the left pleural effusion, a small amount of fluid on the rightwhich is new and new tiny right lung nodules. The main mass is about the same but I am concerned that the other findings are indicative of disease progression. We therefore stopped the gemcitabine/capecitabine. We talked about options, including lenvatinib and pemetrexed. We decided to start lenvatinib. She began this at a dose of 24 mg PO daily on 08/18/20. She has tolerated this well. She has grade 1 thrombocytopenia and grade 1 bilirubin elevation. There has been some fluctuation. Will continue at full dose for now and recheck in two weeks. TFTs will be rechecked at that time also. I will plan a restaging CT in 4 weeks. Of note, we had path sent for [employer] [facility] testing but the sample was insufficient. Therefore, on08/29/20 blood was drawn for [employer] 360 testing. The report is under scanned documents She and Royce received their second covid vaccine shot this morning. documented in this encounter Plan of Treatment Upcoming Encounters Date Type Department Care Team (Late st Contact Info) Description 02/24/2024 9:00 AM EDT Office Visit Hematology/Oncology at [address] [phone] Shon Schneider MD [facility] [place] [address] [address] HEMATOLOGY AND ONCOLOGY [place], [place] [address] 02/24/2024 9:30 AM EDT Infusion Hematology Oncology at [address] [phone] 03/02/2024 11:00 AM EDT Office Visit Hematology/Oncology at [address] [phone] Shon Schneider MD [facility] [place] [address] [address] [place] [address] 03/02/2024 12:30 PM EDT Infusion Hematology Oncology at [address] [phone] 03/09/2024 10:00 AM EDT Office Visit Hematology/Oncology at [address] [phone] Shon Schneider MD [facility] [place] [address] Ciara Pitts APRN [address] [place] [address] DR HEMATOLOGY AND ONCOLOGY [place], [place] [id number] 03/09/2024 10:30 AM EDT Infusion Hematology Oncology at [address] [phone] documented as of this encounter Goals Goal Patient Goal Type Associated Problems Recent Progress Patient-Stated? Author DH Home Medication Compliance and Understanding Patient Facing Action Plan On track( 019 3:22 PM EST) No Ivana Vanegas, [facility] Note: Remain 95% or better adherent to chemotherapy without severe side effects as assessed by days supply and patient reported adverse events at each refill documented as of this encounter Visit Diagnoses Diagnosis Thymic carcinoma Malignant neoplasm of thymus Drug-induced nausea and vomiting Nausea with vomiting Hypothyroidism, acquired Unspecified hypothyroidism Thymic carcinoma Malignant neoplasm of thymus documented in this encounter Care Teams Tmd Teacher Relationship Specialty Start Date End Date Jerzy Vidal MD [address] [place] [address] [place] [address] PCP - [facility] Medicine 12/04/18 documented as of this encounter
--- OUTSIDE RECORDS SUMMARY | 2024-02-24 01:20 | XMS_ITS | Encounter Summary ---
Author Organization [facility] [place] [address] Care Team Providers Care Director Quality Assurance Name Role Phone Jerzy Vidal MD Primary Care Provider [phone] Reason for Visit * Reason Onset Date Comments Labs Only 05/29/2020 critical ANC Encounter Details Date Type Department Care Team (Late st Contact Info) Description 05/29/2020 Telephone Hematology/Oncology at [address] [phone] Brionna Andrade RN Labs Only (critical ANC) Social History Tobacco Use Types Packs/Day Years Used Date Smoking Tobacco: Never Smokeless Tobacco: Never Sex and Gender Information Value Date Recorded Sex Assigned at Not on file Gender Identity Not on file Sexual Orientation Not on file documented as of this encounter Miscellaneous Notes * Telephone Encounter - Brionna Andrade RN - 05/29/2020 3:43 PM EST ON LICENSE OF [facility] lab called with critical ANC of 0.97. Reviewed with Dr. Schneider and ana will be held tomorrow. Pt to continue her capecitabine till done. Then she will have week off. We will see her back in clinic with labs on . Pt states she feels fine no fever or chills. She agrees with plan. Results for BRAYAN PIERRE ( ) as of 05/29/2020 15:42 Ref. Range 05/29/2020 00:00 WBC Unknown 2.3 Hemoglobin Unknown 11.0 Hematocrit Unknown 35.8 Platelets Unknown 266 Neutr Abs (ANC) Unknown 0.97 Creatinine Unknown 0.6 Alk Phos Unknown 69 AST Unknown 48 ALT Unknown 30 documented in this encounter Plan of Treatment Upcoming Encounters Date Type Department Care Team (Late st Contact Info) Description 02/24/2024 9:00 AM EDT Office Visit Hematology/Oncology at [address] [phone] Shon Schneider MD [facility] [place] [address] Ciara Pitts [address] HEMATOLOGY AND ONCOLOGY [place], [place] [address] 02/24/2024 9:30 AM EDT Infusion Hematology Oncology at [address] [phone] 03/02/2024 11:00 AM EDT Office Visit Hematology/Oncology at [address] [phone] Shon Schneider MD [facility] [place] [address] Ciara Pitts [address] HEMATOLOGY AND ONCOLOGY [place], [place] [address] 03/02/2024 12:30 PM EDT Infusion Hematology Oncology at [address] [phone] 03/09/2024 10:00 AM EDT Office Visit Hematology/Oncology at [address] [phone] Shon Schneider MD [facility] [place] [address] LaRCiara dong APRN [address] [place] [address] DR HEMATOLOGY [place] [address] 03/09/2024 10:30 AM EDT Infusion Hematology Oncology at [address] [phone] documented as of this encounter Goals Goal [...] Associated Diagnosis Comments CBC (WITH DIFF) Routine 05/29/2020 documented in this encounter Results * CBC (with Diff) (05/29/2020) White Blood Cell 2.3 Hemoglobin 11.0 Hematocrit 35.8 Platelet 266 Neutrophil Absolute (ANC) - Automated 0.97 Creatinine 0.6 Alkaline Phosphatase 69 Alanine Aminotransferase 30 Aspartate Aminotransferase 48 Blood specimen (specimen) 05/29/2020 Historical Provider HEMATOLOGY ORDERA BLES documented in this encounter Visit Diagnoses Not on filedocumented in this encounter Care Teams Director Quality Assurance Relationship Specialty Start Date End Date Jerzy Vidal MD [address] [place] [address] [place] [address] PCP - General [facility] Medicine 12/04/18 documented as of this encounter
--- OUTSIDE RECORDS SUMMARY | 2024-02-24 01:20 | XMS_ITS | Encounter Summary ---
Author Organization [facility] [place] [address] Care Team Providers Care Front Sight Attacher Name Role Phone Jerzy Vidal MD Primary Care Provider [phone] Encounter Details Date Type Department Care Team (Late Contact Info) Description 08/05/2020 Telephone Hematology/Oncology at [address] [phone] Dorian Esparza Social History Tobacco Use Types Packs/Day Years Used Date Smoking Tobacco: Never Smokeless Tobacco: Never Sex and Gender Information Value Date Recorded Sex Assigned at Not on file Gender Identity Not on file Sexual Orientation Not on file documented as of this encounter Miscellaneous Notes * Telephone Encounter - Dorian Esparza - 08/05/2020 10:30 AM EST Called pt to inform her of her apt on 08/11 @ 3 with Matilde. Pt agreed. She also wanted to let Dr. Schneider know that she is still having SOB. She states it's not going away this time but she will discuss with Matilde on 08/11. She stated she will call if things get worse. Dr. Schneider notified via this note. documented in this encounter Plan of Treatment Upcoming Encounters Date Type Department Care Team (Late Contact Info) Description 02/24/2024 9:00 AM EDT Office Visit Hematology/Oncology at [address] [phone] Shon Schneider MD [facility] [place] [address] [address] [place] [address] 02/24/2024 9:30 AM EDT Infusion Hematology Oncology at [address] [phone] 03/02/2024 11:00 AM EDT Office Visit Hematology/Oncology at [address] [phone] Shon Schneider MD [facility] [place] [address] [address] HEMATOLOGY AND ONCOLOGY [place], [place] [address] 03/02/2024 12:30 PM EDT Infusion Hematology Oncology at [address] [phone] 03/09/2024 10:00 AM EDT Office Visit Hematology/Oncology at [address] [phone] Shon Schneider MD [facility] [place] [address] [address] HEMATOLOGY AND ONCOLOGY [place], [place] [address] 03/09/2024 10:30 AM EDT Infusion Hematology Oncology at [address] [phone] documented as of this encounter Goals Goal Patient Goal Type Associated Problems Recent Progress Patient-Stated? Author DH Home Medication Compliance and Understanding Patient Facing Action Plan On track( 019 3:22 PM EST) No Ivana Vanegas, [facility] Note: Remain 95% or better adherent to chemotherapy without severe side effects as assessed by days supply and patient reported adverse events at each refill documented as of this encounter Visit Diagnoses Not on filedocumented in this encounter Care Teams Front Sight Attacher Relationship Specialty Start Date End Date Jerzy Vidal MD [address] [place] [address] [place] [address] PCP - [facility] Medicine 12/04/18 documented as of this encounter
--- OUTSIDE RECORDS SUMMARY | 2024-02-24 01:20 | XMS_ITS | Encounter Summary ---
Author Organization [facility] [place] [address] Care Team Providers Care Portrait Photographer Name Role Phone Jerzy Vidal MD Primary Care Provider [phone] Encounter Details Date Type Department Care Team (Late st Contact Info) Description 07/04/2020 1:30 PM EST Office Visit Hematology/Oncology at [address] [phone] Ivory Flynn APRN [address] [place] [address] [place] [address] Thymic carcinoma Social History Tobacco Use Types Packs/Day Years Used Date Smoking Tobacco: Never Smokeless Tobacco: Never Sex and Gender Information Value Date Recorded Sex Assigned at Not on file Gender Identity Not on file Sexual Orientation Not on file documented as of this encounter Last Filed Vital Signs Vital Sign Reading Time Taken Comments Blood Pressure 137/75 07/04/2020 1:30 PM EST Pulse 75 07/04/2020 1:30 PM EST Temperature 36.2 ??C (97.2 ??F) 07/04/2020 1:30 PM ES T Respiratory Rate 20 07/04/2020 1:30 PM EST Oxygen Saturation 96% 07/04/2020 1:30 PM EST Inhaled Oxygen Concentration - - Weight 128.5 kg (283 lb 3.2 oz) 07/04/2020 1:30 PM EST Height 176 cm (5' 9.29) 07/04/2020 1:30 PM EST Body Mass Index 41.47 07/04/2020 1:30 PM EST documented in this encounter Progress Notes * Ivory Flynn, DIABETOLOGIST - 07/04/2020 1:30 PM EST Subjective: Patient ID: Monica [...] effusion with compression atelectasis. ?? transferred to [facility] for further evaluation and workup and had [...] Biopsy of mediastinal mass 03/29 Path ([facility] review) - Mediastinum, mass, biopsy: 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 ?? [facility] - CONSULT SLIDES FROM [facility]; [place], [place]: A. MEDIASTINUM, MASS, BIOPSY ([id number]; 03/22/2017): ? 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 ?Immunohistochemistry performed at the outside institution and reviewed at [facility] demonstrates the following staining profile in lesional cells: ? Positive - AE1/AE3, p40, PAX8, CD117, CD5(multifocal), CK7(scattered cells), synaptophysin, chromogranin ? Negative - CK20, TTF-1, GATA3, CD34 ? The immunohistochemical profile supports the above diagnosis. ? Ki67 (MIB-1) proliferation index performed at the referring institution and reviewed at [facility] is focally up to ~30%. NOTE: While diffuse synaptophysin and chromogranin expression is unusual for conventional thymic carcinoma, the overall histomorphology and immunophenotype is most in keeping with THYMIC SQUAMOUS CARCINOMA.?The extent of PAX8 and CD117 staining would be unusual for Nut carcinoma. B. MEDIASTINUM, ANTERIOR, 4.5 CM, ULTRASOUND GUIDED FINED NEEDLE ASPIRATION ([id number]; 03/22/17): The cytologic preparations were not reviewed [...] Second opinion with Dr. Roddy Vega in [place]. ??They reviewed the pathology and concurred they [...] with pembrolizumab L. CT c/a/p 11/06/19 ([facility] second read) - IMPRESSION 1. ??Worsening left-sided [...] 60-65%). ? 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 ?? Fam Hx: No h/o cancer INTERVAL HPI 06/20/20 Monica Jaramillo is a 64 yo female with stage IV thymic carcinoma diagnosed in 03/29. (Refer to extensive history summarized above.) Monica returns to the [facility] oncology clinic alone today for evaluation and C6D8 treatment with Gemcitabine and oral Capecitabine 1000 mg bid days 1-14. Monica today reports no new side effects or toxicities related to Gemzar/Capecitabine treatment. Shereports feeling very well. She denies any changes [...] Monica is in agreement with this plan. INTERVAL HPI 07/04/20 Monica Jaramillo is a 64 yo female with stage IV thymic carcinoma diagnosed in 03/29. (Refer to extensive history summarized above.) Monica returns to the [facility] oncology clinic alone today for evaluation and C7D1 treatment with Gemcitabine and oral Capecitabine 1000 mg bid days 1-14. Monica says she is doing well. She says lately she says after treatment she has 2 days of feeling great, then 2 days of fatigue, then she gets a gassy, bloated feeling and pressure in her upper abdomen that exerts pressure on her thoracic category. She tends to feel a little short of breath with activity when this occurs. She believes Capecitabine is causing this. She has had no issues with appetite or bowel movements. Monica denies new cough, chest pain or chest tightness. Overall she says her breathing is good. Sometimes wearing the masks can induce a transient panicky feeling. Monica denies any issues with burning swelling or redness on her hands or feet. She denies any skin abnormalities. She has not had any fevers or infections. She needs a new prescription for Capecitabine which I will send. . Allergies Allergen Reactions ??? Carboplatin ??? [...] for constipation, diarrhea and nausea. Gassy/bloating feeling in upper abdomen. Genitourinary: Negative. Musculoskeletal: Negative. Skin: Negative for [...] normal. Thought Content: Thought content normal. BP 137/75 (Patient Position: Sitting) Pulse 75 Temp 36.2 ??C (97.2 ??F) (Temporal) Resp 20 Ht 176 cm (5' 9.29) Wt 128.5 kg (283 lb 3.2 oz) SpO2 96% BMI 41.47 kg/m?? LABS 07/03/20 WBC 4.3; ANC 1.74; H/H 11.5/ 37.1; PLT 239; BUN 12; CREAT 0.60; ALP 70; ALT 34; AST 53; CA++ 9.3. Assessment: Monica Jaramillo is a 64 yo female with stage IV thymic carcinoma diagnosed in 03/29. (Refer to extensive history summarized above.) Monica returns to the [facility] oncology clinic alone today for evaluation and C7D1 treatment with Gemcitabine and oral Capecitabine 1000 mg bid days 1-14. Monica continues to tolerate this regimen extremely well with little to no toxicities noted. We reviewed CBC, CMP today which are appropriate for treatment. Plan: Proceed with C7D1 Gemzar/Capecitabine treatment today. RTC in 1 weeks for C7D8 Gemzar/Capecitabine. Plan restaging Chest CT after C7 in early July. documented in this encounter Plan of Treatment Upcoming Encounters Date Type Department Care Team (Late st Contact Info) Description 02/24/2024 9:00 AM EDT Office Visit Hematology/Oncology at [address] [phone] Shon Schneider MD [facility] [place] [address] HEMATOLOGY AND ONCOLOGY [place], [place] [address] 02/24/2024 9:30 AM EDT Infusion Hematology Oncology at [address] [phone] 03/02/2024 11:00 AM EDT Office Visit Hematology/Oncology at [address] [phone] Shon Schneider MD [facility] [place] [address] [address] HEMATOLOGY AND ONCOLOGY [place], [place] [address] 03/02/2024 12:30 PM EDT Infusion Hematology Oncology at [address] [phone] 03/09/2024 10:00 AM EDT Office Visit Hematology/Oncology at [address] [phone] Shon Schneider MD [facility] [place] [address] [address] [place]EMATOLOG[place] [address] 03/09/2024 10:30 AM EDT Infusion Hematology Oncology at [address] [phone] documented as of this encounter Goals Goal [...] thymus documented in this encounter Care Teams Portrait Photographer Relationship Specialty Start Date End Date Jerzy Vidal MD [address] [place] [address] [place] [address] PCP - [facility] Medicine 12/04/18 documented as of this encounter
--- OUTSIDE RECORDS SUMMARY | 2024-02-24 01:20 | XMS_ITS | Encounter Summary ---
[place] [address] Care Team Providers Care Chemical Research Engineer Name Role Phone Jerzy Vidal MD Primary Care Provider [phone] Reason for Visit * Reason Comments Prior Authorization Lenvima 24 mg Encounter Details Date Type Department Care Team (Late st Contact Info) Description 07/28/2020 Specialty [place] [address] Radha Castañeda, SURVEILLANCE CAMERA TECHNICIAN Social History Tobacco Use Types Packs/Day Years Used Date Smoking Tobacco: Never Smokeless Tobacco: Never Sex and Gender Information Value Date Recorded Sex Assigned at Not on file Gender Identity Not on file Sexual Orientation Not on file documented as of this encounter Progress Notes * Radha Castañeda - 07/28/2020 10:04 AM EST [facility], Prior Authorization Approval Medication Name: HEMONC LENVATINIB CAPSULE Medication ID: [id number] Approval Dates: 07/11/2020 to 01/22/2021 Insurance requirements/notes: Insurance mandate to fill through [facility] P)[phone] Fax) [phone] Other Notes: [facility] will be able to determine co-pay amount. Case/Reference #: [id number] Approval notification Received via: Fax Copay: ? Copay assistance: Copay Notes: PT should call [employer] ( the appweevr copay assistance Program) at [phone] Insurance mandated Pharmacy: [facility] Fillable at [facility] Special[facility] Pharmacy: One time Fill Pharmacy staff will be reaching out to the patient to inform them of their medication's approval bytheir insurance. If applicable, a pharmacist will speak with the patient to offer our specialty pharmacy services and to arrange delivery of their medication. Radha Castañeda 07/28/20 11:51 AM [facility], Medication Prior Authorization Patient: Monica Jaramillo Patient : 1955 Patient Address: [address] [address] (home) Medication Name: HEMONC LENVATINIB CAPSULE Medication ID: [id number] Patient Location: [facility] Patient Location Comment: Subscriber Insurance[facility] Subscriber Insurance Comment: Fax: Physician: SHON COATES Physician Comment: Sent Via: Telephone Laird: Ref/Case/PA#: [id number] Medication Strength Frequency Requested: Lenvima 24mg Qty/Day Supply: /30 New Start: New to Therapy Diagnosis & ICD-10 Code: Thymic Cancer -C37 Patient Notified: Submission Notes: Insurance requires a Prior Authorization Radha Castañeda 07/28/20 11:50 AM documented in this encounter Plan of Treatment Upcoming Encounters Date Type Department Care Team (Late st Contact Info) Description 02/24/2024 9:00 AM EDT Office Visit Hematology/Oncology at [address] [phone] Shon Coates MD [facility] [place] [address] [address] HEMATOLOGY AND ONCOLOGY [place], [place] [address] [phone] 02/24/2024 9:30 AM EDT Infusion Hematology Oncology at [address] [phone] 03/02/2024 11:00 AM EDT Office Visit Hematology/Oncology at [address] [phone] 36 Shon Coates MD [facility] [place] [address] [address] HEMATOLOGY AND ONCOLOGY [place], [place] [phone] 03/02/2024 12:30 PM EDT Infusion Hematology Oncology at [address] [phone] 03/09/2024 10:00 AM EDT Office Visit Hematology/Oncology at [address] [phone] Shon Coates MD [facility] [place] [address] [address] HEMATOLOGY AND ONCOLOGY [place], [place] [address] 03/09/2024 10:30 AM EDT Infusion Hematology Oncology at [address] [phone] documented as of this encounter Goals Goal Patient Goal Type Associated Problems Recent Progress Patient-Stated? Author DH Home Medication Compliance and Understanding Patient Facing Action Plan On track( 019 3:22 PM EST) Ivana Ashraf, [facility] Note: Remain 95% or better adherent to chemotherapy without severe side effects as assessed by days supply and patient reported adverse events at each refill documented as of this encounter Visit Diagnoses Not on filedocumented in this encounter Care Teams Chemical Research Engineer Relationship Specialty Start Date End Date Jerzy Vidal MD [address] [place] [address] [place] [address] PCP - [facility] Medicine 12/04/18 documented as of this encounter
--- OUTSIDE RECORDS SUMMARY | 2024-02-24 01:20 | XMS_ITS | Encounter Summary ---
Author Organization [facility] Address [facility] [place] [address] Care Team Providers Care Logistics Coordinator Name Role Phone Jerzy Vidal MD Primary Care Provider [phone] Reason for Visit * Reason Comments Chemotherapy Cycle 6, Day 8 Gemci tabine * Treatment/Therapy Plan Authorization (Routine) - Closed Specialty Diagnoses / Procedures Referred By Franklyn del rio Referred To Contact Diagnoses Thymic carcinoma Procedures TC GEMCITABINE HCL, 200MG, INJECTION (GEMZAR) Shon Schneider MD [facility] [place] [address] St Hem Onc Infusion [address] [place] [phone] Referral ID Status Reason Start Date Expiration Date Visits Re quested Visits Authorized [id number] Closed 02/28/2020 02/28/2021 18 18 Encounter Details Date Type Department Care Team (Late st Contact Info) Description 06/20/2020 11:00 AM EST Infusion Hematology Oncology at [address] [phone] Thymic carcinoma Social History Tobacco Use Types Packs/Day Years Used Date Smoking Tobacco: Never Smokeless Tobacco: Never Sex and Gender Information Value Date Recorded Sex Assigned at Not on file Gender Identity Not on file Sexual Orientation Not on file documented as of this encounter Progress Notes * Boaz Amos RN - 06/20/2020 11:00 AM EST INFUSION THERAPY ADMINISTRATION NOTES DIAGNOSIS: Thymic Cancer CYCLE #6: Day 8 REASON FOR VISIT: Gemcitabine infusion SUBJECTIVE: Monica Jaramillo offers no complaints. OBJECTIVE: VSS. Seen by provider. Ready to treat. LAB DATA: WNL & reviewed by provider. IV ACCESS: Mediport Pre administration: Chemotherapy orders independently verified for drug name, route, and dosage per patient's height, weight and BSA by Boaz Amos RN and on-site [facility]. REACTIONS (DESCRIPTION, TIME, INTERVENTION AND EFFECTIVENESS) none ASSESSMENT Monica Jaramillo was awake, alert and she tolerated treatment well. PLAN Return to clinic per protocol. documented in this encounter Plan of Treatment Upcoming Encounters Date Type Department Care Team (Late st Contact Info) Description 02/24/2024 9:00 AM EDT Office Visit Hematology/Oncology at [address] [phone] Shon Schneider MD [facility] [place] [address] [address] [place] [address] 02/24/2024 9:30 AM EDT Infusion Hematology Oncology at [address] [phone] 03/02/2024 11:00 AM EDT Office Visit Hematology/Oncology at [address] [phone] Shon Schneider MD [facility] [place] [address] [address] HEMATOLOGY AND ONCOLOGY [place], [place] [address] 03/02/2024 12:30 PM EDT Infusion Hematology Oncology at [address] [phone] 03/09/2024 10:00 AM EDT Office Visit Hematology/Oncology at [address] [phone] Shon Schneider MD [facility] [place] [address] Ciara Pitts APRN [address] [place] [address] DR [place] [address] 03/09/2024 10:30 AM EDT Infusion Hematology Oncology at [address] [phone] documented as of this encounter [...] MAR Action Action Date Dose Rate Site dexamethasone (Decadron) injection 10 mg 10 mg, Intravenous, ONCE, 1 dose, On Tue06/20/20 at 1130 Given 06/20/2020 11:21 AM EST 10 mg GEMcitabine 2,400 mg in sodium chloride 0.9% 313.12 mL infusion 2,400 mg, Intravenous, ONCE, 1 dose, On Tue06/20/20 at 1230, Administer over 30 Minutes, Warning Vesicant/Irritant Medication Dose Ordered = 2440 mg (1000 mg/m2). Pharmacist rounded dose per procedure re-ordered by . New Bag 06/20/2020 11:47 AM EST 2,400 mg 626 mL/hr heparin (pf) (porcine) (100 units/mL) flush 5 mL syringe 500 Units 500 Units, Intravenous, ONCE PRN, Starting on Tue06/20/20 at 1104, Until Tue06/20/20 at 1434, Line Care, Refer to Intravenous (IV) Procedure: Accessing Implanted Vascular Access Devices (654) procedure and/or Intravenous (IV) Job Aid: Adult Flushing & Catheter Care (4767) job aid for additional information regarding guidelines and administration., Routine Given 06/20/2020 12:23 PM EST 500 Units ondansetron (Zofran) tablet 8 mg 8 mg, Oral, ONCE, 1 dose, On Tue06/20/20 at 1130, Administer prior to chemotherapy, Routine Given 06/20/2020 11:20 AM EST 8 mg sodium chloride 0.9 % (flush) flush 5-20 mL 5-20 mL, Intravenous, EVERY 1 MIN PRN, Starting on Tue06/20/20 at 1104, Until Tue06/20/20 at 1434, Line Care, Flush pertains to all indwelling lines. Flush per protocol found in the job aid using the link provided on this medication record. Refer to Intravenous (IV) Job Aid: Adult Flushing & Catheter Care (6685) job aid for additional information regarding guidelines and administration., Routine Given 06/20/2020 12:23 PM EST 20 mLs documented in this encounter Care Teams Logistics Coordinator Relationship Specialty Start Date End Date Jerzy Vidal MD [address] [place] [address] [place] [address] PCP - [facility] Medicine 12/04/18 documented as of this encounter
--- OUTSIDE RECORDS SUMMARY | 2024-02-24 01:20 | XMS_ITS | Encounter Summary ---
Author Organization [facility] [place] [address] Care Team Providers Care Wardrobe Attendant Name Role Phone Jerzy Vidal MD Primary Care Provider [phone] Reason for Visit * Reason Onset Date Comments Other 08/15/2020 check in after a pt with surgeon re thorackathrynis Encounter Details Date Type Department Care Team (Late st Contact Info) Description 08/15/2020 Telephone Hematology/Oncology at [address] [phone] Lashawn Skelton, RN Other (check in after apt with surgeon re thoracentisis ) Social History Tobacco Use Types Packs/Day Years Used Date Smoking Tobacco: Never Smokeless Tobacco: Never Sex and Gender Information Value Date Recorded Sex Assigned at Not on file Gender Identity Not on file Sexual Orientation Not on file documented as of this encounter Miscellaneous Notes * Telephone Encounter - Lashawn Skelton, RN - 08/15/2020 2:21 PM EST Called Monica to check in after apt with Dr Todd (surgeon at [facility]) re: thoracentesis. She reports the apt went well te CT showed a pleaural effusion, although Dr. Todd was unsure if this was causing all of her breathy difficulty. The CT also mentioned pneumonitis in the L Lung and Dr Todd was re aching out to Monica's PCP to see if there was a different inhaler that might help. Thoracentesis scheduled Saturday 08/19. Monica has appointment here with Kimberley Flynn Friday 08/18. She isanxious about getting started on her new oral chemo, lenvatinib. Discussed with Dr. Schneider and he is thinking Tuesday after visit would be ok to start. documented in this encounter Plan of Treatment Upcoming Encounters Date Type Department Care Team (Late st Contact Info) Description 02/24/2024 9:00 AM EDT Office Visit Hematology/Oncology at [address] [phone] Shon Schneider MD [facility] [place] [address] [address] [place] [address] 02/24/2024 9:30 AM EDT Infusion Hematology Oncology at [address] [phone] 03/02/2024 11:00 AM EDT Office Visit Hematology/Oncology at [address] [phone] Shon Schneider MD [facility] [place] [address] [place] [address] 03/02/2024 12:30 PM EDT Infusion Hematology Oncology at [address] [phone] 03/09/2024 10:00 AM EDT Office Visit Hematology/Oncology at [address] [phone] Shon Schneider MD [facility] [place] [address] Ciara Pitts APRN [address] [place] [address] DR HEMATOLOGY AND ONCOLOGY [place], [place] [phone] 03/09/2024 10:30 AM EDT Infusion Hematology Oncology at [address] [phone] documented as of this encounter [...] on filedocumented in this encounter Care Teams Wardrobe Attendant Relationship Specialty Start Date End Date Jerzy Vidal MD [address] [place] [address] [place] [address] PCP - [facility] Medicine 12/04/18 documented as of this encounter
--- OUTSIDE RECORDS SUMMARY | 2024-02-24 01:20 | XMS_ITS | Encounter Summary ---
Author Organization [facility] [place] [address] Care Team Providers Care Sales Route Driver Name Role Phone Jerzy Vidal MD Primary Care Provider [phone] Reason for Visit * Reason Onset Date Comments Other 08/11/2020 Encounter Details Date Type Department Care Team (Late st Contact Info) Description 08/11/2020 Telephone Hematology/Oncology at [address] [phone] Brionna Andrade RN Other Social History Tobacco Use Types Packs/Day Years Used Date Smoking Tobacco: Never Smokeless Tobacco: Never Sex and Gender Information Value Date Recorded Sex Assigned at Not on file Gender Identity Not on file Sexual Orientation Not on file documented as of this encounter Miscellaneous Notes * Telephone Encounter - Brionna Andrade RN - 08/11/2020 1:10 PM EST Pt calls today and states her breathing has gotten worse. If she does anything around the house shegets short of breath. She can talk and eat without issue. She has no fever. She does bring up some mucus. Her O2 sats are normally around 97% are down to 91-92%. Reviewed with Dr. Schneider and he stated she may need thoracentesis and to set her up with local surgeon with ct of chest. Barbara Flynn NP put orders in and urgent requests called in by secretaries. Reviewed with pt and told her if breathing gets worse she is to go to ER. Pt suppose to meet with B. Matarazzo CLINICAL RESOURCE DIRECTOR today at 3 but has not started her new oral medication as it has not arrived at her house. Appointment moved out one week. documented in this encounter Plan of Treatment Upcoming Encounters Date Type Department Care Team (Late st Contact Info) Description 02/24/2024 9:00 AM EDT Office Visit Hematology/Oncology at [address] [phone] Shon Schneider MD [facility] [place] [address] [address] HEMATOLOGY [place] [address] 02/24/2024 9:30 AM EDT Infusion Hematology Oncology at [address] [phone] 03/02/2024 11:00 AM EDT Office Visit Hematology/Oncology at [address] [phone] Shon Schneider MD [facility] [address] [address] HEMATOLOGY [place] [address] 03/02/2024 12:30 PM EDT Infusion Hematology Oncology at [address] [phone] 03/09/2024 10:00 AM EDT Office Visit Hematology/Oncology at [address] [phone] Shon Schneider MD [facility] [address] Ciara Pitts APRN [address] [place] [address] DR HEMATOLOGY AND ONCOLOGY [place], [place] [address] 03/09/2024 10:30 AM EDT Infusion Hematology Oncology at [address] [phone] documented as of this encounter Goals Goal [...] on filedocumented in this encounter Care Teams Sales Route Driver Relationship Specialty Start Date End Date Jerzy Vidal MD [address] [place] [address] [place] [address] PCP - [facility] Medicine 12/04/18 documented as of this encounter
--- OUTSIDE RECORDS SUMMARY | 2024-02-24 01:20 | XMS_ITS | Encounter Summary ---
Author Organization [facility] Address [facility] [place] [address] Care Team Providers Care Phys Assistant Name Role Phone Jerzy Vidal MD Primary Care Provider [phone] Encounter Details Date Type Department Care Team (Late st Contact Info) Description 07/08/2020 Telephone Hematology/Oncology at [address] [phone] Dorian Esparza Social History Tobacco Use Types [...] AM EDT Office Visit Hematology/Oncology at [address] [phone] Shon Schneider MD [facility] [place] [address] Ciara Pitts APRN [address] [place] [address] DR HEMATOLOGY AND ONCOLOGY [place], [place] [id number] 02/24/2024 9:30 AM EDT Infusion Hematology Oncology at [address] [phone] 03/02/2024 11:00 AM EDT Office Visit Hematology/Oncology at [address] [phone] Shon Schneider MD [facility] [place] [address] HEMATOLOGY AND ONCOLOGY [place], [place] [id number] 03/02/2024 12:30 PM EDT Infusion Hematology Oncology at [address] [phone] 03/09/2024 10:00 AM EDT Office Visit Hematology/Oncology at [address] [phone] Shon Schneider MD [facility] [place] [address] [address] HEMATOLOGY AND ONCOLOGY [place], [place] [id number] 03/09/2024 10:30 AM EDT Infusion Hematology Oncology at [address] [phone] documented as of this encounter Goals Goal [...] on filedocumented in this encounter Care Teams Phys Assistant Relationship Specialty Start Date End Date Jerzy Vidal MD [address] [place] [address] [place] [address] PCP - [facility] Medicine 12/04/18 documented as of this encounter
--- OUTSIDE RECORDS SUMMARY | 2024-02-24 01:20 | XMS_ITS | Encounter Summary ---
Author Organization [facility] [place] [address] Care Team Providers Care Cardiac Technologist Name Role Phone Jerzy Vidal MD Primary Care Provider [phone] Encounter Details Date Type Department Care Team (Late st Contact Info) Description 10/10/2020 2:30 PM EDT Office Visit Hematology/Oncology at [address] [phone] Ivory Flynn APRN [address] [place] [address] [place] [address] Thymic carcinoma; Dyspnea, unspecified type Social History Tobacco Use Types Packs/Day Years Used Date Smoking Tobacco: Never Smokeless Tobacco: Never Sex and Gender Information Value Date Recorded Sex Assigned at Not on file Gender Identity Not on file Sexual Orientation Not on file documented as of this encounter Last Filed Vital Signs Vital Sign Reading Time Taken Comments Blood Pressure 133/87 10/10/2020 2:32 PM EDT Pulse 78 10/10/2020 2:32 PM EDT Temperature 36.3 ??C (97.3 ??F) 10/10/2020 2:32 PM ED T Respiratory Rate 20 10/10/2020 2:32 PM EDT Oxygen Saturation 97% 10/10/2020 2:32 PM EDT Inhaled Oxygen Concentration - - Weight 116.8 kg (257 lb 9.6 oz) 10/10/2020 2:32 PM EDT Height 175.3 cm (5' 9.02) 10/10/2020 2:32 PM ED T Body Mass Index 38.02 10/10/2020 2:32 PM EDT documented in this encounter Patient Instructions * Patient Instructions* Ivory Flynn APRN - 10/10/2020 2:30 PM EDT Monica, Try these things: Cool mist vaporizer at night. Saline spray for nose. Lubricant eye drops. Biotin mouth spray or mouth If another nosebleed, you can try this - Blow blood out, use 2 squirts of Afrin spray, then clamp for 30 minutes. documented in this encounter Progress Notes * Ivory Flynn APRN - 10/10/2020 2:30 PM EDT Subjective: Patient ID: Monica [...] with compression atelectasis. ?? transferred to [facility] for further evaluation and workup and had [...] B. Biopsy of mediastinal mass 03/29 Path ([facility] review) - Mediastinum, mass, biopsy: 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 ?? [facility] - CONSULT SLIDES FROM [facility]; [place], [place]: A. MEDIASTINUM, MASS, BIOPSY ([id number]; 03/22/2017): ? 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 ?Immunohistochemistry performed at the outside institution and reviewed at [facility] demonstrates the following staining profile in lesional cells: ? Positive - AE1/AE3, p40, PAX8, CD117, CD5(multifocal), CK7(scattered cells), synaptophysin, chromogranin ? Negative - CK20, TTF-1, GATA3, CD34 ? The immunohistochemical profile supports the above diagnosis. ? Ki67 (MIB-1) proliferation index performed at the referring institution and reviewed at [facility] is focally up to ~30%. NOTE: While diffuse synaptophysin and chromogranin expression is unusual for conventional thymic carcinoma, the overall histomorphology and immunophenotype is most in keeping with THYMIC SQUAMOUS CARCINOMA.?The extent of PAX8 and CD117 staining would be unusual for Nut carcinoma. B. MEDIASTINUM, ANTERIOR, 4.5 CM, ULTRASOUND GUIDED FINED NEEDLE ASPIRATION ([id number]; 03/22/17): The cytologic preparations were not reviewed [...] Second opinion with Dr. Roddy Vega in [place]. ??They reviewed the pathology and concurred they [...] therapy with pembrolizumab L. CT c/a/p 11/06/19 ([facility] second read) - IMPRESSION 1. ??Worsening left-sided [...] 60-65%). ?? 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 ?? Fam Hx: No h/o cancer INTERVAL HPI 10/10/20 Monica Jaramillo is a 64 yo female with stage IV thymic carcinoma diagnosed in 03/29. (Refer to extensive history summarized above.) Monica returns to the [facility] oncology clinic today accompanied by her Royce for clinic visit for evaluation of ongoing Lenvatinib therapy. Monica was seen by surgery at [facility] 08/19/20 and had a thoracentisis of a left pleural effusion. She reports about 600cc of fluid was removed. She further notes she had a significant loss of fluid systemically for several days afterward. She reports voiding frequently, and today has maintained a 13 pound fluid weight loss. Monica started Lenvatinib 24 mg po QD on 08/15/20. Monica says overall she is doing well. She usually has about one day a week where she notices some waves of nausea. This has responded well to Ondansetron prn. She also notices food tastes are changing. She recently had BBQ ribs that tasted like fish. She denies abdominal pain and is moving her bowels with infrequent use of Miralax. She says her breathing is good. She has not noticed any increased shortness of breath or new cough.No chest pain. She feels she can get a good breath in. She does not feel like her activity is limited by breathing. She has no new aches or pains, and states her left knee is not aching as much. She has no signs or symptoms of hand-foot syndrome. Dryness in her mouth, nose and eyes is affecting her the most. She had a nosebleed recently that required and ER visit and was subsequently controlled. She says her mouth is very dry, especially in the morning, and some times she can't get her eyelids open because her eyes are so dry. We talked about some strategies to help with these issues. I suggest a cool mist vaporizer for her bedroom at night. I will have her get some lubricant eye drops, saline nasal spray and Biotene mouthwash if she desires. Allergies Allergen Reactions ??? Carboplatin ??? Penicillins Hives ??? Pollen Extracts Other (See Comments) rhinorrhea Current Medications ??? aMILoride (Midamor) 5 mg Tablet ??? ondansetron (Zofran) 8 mg Tablet ??? fluticasone propionate (FLOVENT) 44 mcg/actuation HFA Aerosol Inhaler ??? lenvatinib (LENVIMA) chemo capsule ??? ALBUTEROL INHL ??? levothyroxine (Synthroid) 25 [...] 5 mg Tablet ??? multivitamin (THERAGRAN) Tablet ??? prochlorperazine (Compazine) 10 mg Tablet Review of Systems Constitutional: Negative for activity change, appetite change, fatigue and fever. HENT: Positive for congestion and nosebleeds. Negative for mouth sores and trouble swallowing. Mouth extremely dry. Nosebleed X1 Eyes: Negative. Extremely dry Respiratory: Negative for cough and shortness of breath. Cardiovascular: Negative for chest pain and palpitations. Gastrointestinal: Negative for abdominal distention, constipation, diarrhea and nausea. Genitourinary: Negative. Musculoskeletal: Positive for arthralgias. Left knee sprain Skin: Negative for color change and rash. [...] Thought content normal. Judgment: Judgment normal. BP 133/87 (Patient Position: Sitting) Pulse 78 Temp 36.3 ??C (97.3 ??F) Resp 20 Ht 175.3 cm(5' 9.02) Wt 116.8 kg (257 lb 9.6 oz) SpO2 97% BMI 38.02 kg/m?? LABS 10/09/20 WBC 6.3; ANC 2.33; H/H 15.3/ 45.4; PLT 114; BUN 14; CREAT 0.80; ALP 65; ALT 19; AST 34; BILI 0.9. RECENT IMAGING 08/14/20 - Chest CT - IMPRESSION - [...] history summarized above.) Monica returns to the [facility] oncology clinic accompanied by her Royce for evaluation of daily Levatinib 24mg po QD which she started 08/18/20. CBC and CMP reviewed with Monica and Royce today and support ongoing treatment. She is experiencing nausea about one day a week, and facial mucous membranes are becoming very dry. Plan:. Continue Levatinib - 24 mg po QD. Ondansetron as needed for nausea. For dry facial membranes try cool mist vaporizer at night, saline nasal spray, lubricant eye drops and Biotene oral rinse. Restaging CT scheduled for 10/20. RTC 10/24/20 for visit, discussion. RTC 2 weeks for visit and labs or call sooner for questions or concerns. documented in this encounter Plan of Treatment Upcoming Encounters Date Type Department Care Team (Late st Contact Info) Description 02/24/2024 9:00 AM EDT Office Visit Hematology/Oncology at [address] [phone] Shon Schneider MD [facility] [address] Ciara Pitts [address] [place] [address] 02/24/2024 9:30 AM EDT Infusion Hematology Oncology at [address] [phone] 03/02/2024 11:00 AM EDT Office Visit Hematology/Oncology at [address] [phone] Shon Schneider MD [facility] [place] [address] Ciara Pitts [address] [place] [address] 03/02/2024 12:30 PM EDT Infusion Hematology Oncology at [address] [phone] 03/09/2024 10:00 AM EDT Office Visit Hematology/Oncology at [address] [phone] Shon Schneider MD [facility] [place] [address] Ciara Pitts APRN [address] [place] [address] DR HEMATOLOGY AND ONCOLOGY [place], [place] [id number] 03/09/2024 10:30 AM EDT Infusion Hematology Oncology at [address] [phone] documented as of this encounter Goals Goal Patient Goal Type Associated Problems Recent Progress Patient-Stated? Author DH Home Medication Compliance and Understanding Patient Facing Action Plan On track( 019 3:22 PM EST) No Ivana Vanegas, [facility] Note: Remain 95% or better adherent to chemotherapy without severe side effects as assessed by days supply and patient reported adverse events at each refill documented as of this encounter Visit Diagnoses Diagnosis Thymic carcinoma Malignant neoplasm of thymus Dyspnea, unspecified type Thymic carcinoma Malignant neoplasm of thymus documented in this encounter Care Teams Cardiac Technologist Relationship Specialty Start Date End Date Jerzy Vidal MD [address] [place] [address] [place] [address] PCP - General [facility] Medicine 12/04/18 documented as of this encounter
--- OUTSIDE RECORDS SUMMARY | 2024-02-24 01:20 | XMS_ITS | Encounter Summary ---
Author Organization [facility] Address [facility] [place] [address] Care Team Providers Care Manager Helpdesk Name Role Phone Jerzy Vidal MD Primary Care Provider Reason for Visit * Reason Comments Medication Refill Encounter Details Date Type Department Care Team (Late st Contact Info) Description 10/28/2020 Refill Hematology/Oncology at [address] [phone] Nadeen Srivastava RN Thymic carcinoma; Acquired hypothyroidism Social History Tobacco Use Types [...] AM EDT Office Visit Hematology/Oncology at [address] [phone] Shon Schneider MD [facility] [place] [address] Ciara Pitts APRN [address] [place] [address] DR HEMATOLOGY AND ONCOLOGY [place], [place] [id number] 02/24/2024 9:30 AM EDT Infusion Hematology Oncology at [address] [phone] 03/02/2024 11:00 AM EDT Office Visit Hematology/Oncology at [address] [phone] Shon Schneider MD [facility] [place] [address] HEMATOLOGY AND ONCOLOGY [place], [place] [address] 03/02/2024 12:30 PM EDT Infusion Hematology Oncology at [address] [phone] 03/09/2024 10:00 AM EDT Office Visit Hematology/Oncology at [address] [phone] Shon Schneider MD [facility] [place] [address] HEMATOLOGY AND ONCOLOGY [place], [place] [id number] 03/09/2024 10:30 AM EDT Infusion Hematology Oncology at [address] [phone] documented as of this encounter Goals Goal [...] Diagnosis Thymic carcinoma Malignant neoplasm of thymus Acquired hypothyroidism Unspecified hypothyroidism Thymic carcinoma Malignant neoplasm of thymus documented in this encounter Care Teams Manager Helpdesk Relationship Specialty Start Date End Date Jerzy Vidal MD [address] [place] [address] [place] [address] PCP - [facility] Medicine 12/04/18 documented as of this encounter
--- OUTSIDE RECORDS SUMMARY | 2024-02-24 01:20 | XMS_ITS | Encounter Summary ---
Author Organization [facility] [place] [address] Care Team Providers Care Forepart Rounder Name Role Phone Jerzy Vidal MD Primary Care Provider [phone] Reason for Visit * Reason Onset Date Comments New Medication Request 07/25/2020 New oral chemo- Lenvima Encounter Details Date Type Department Care Team (Late st Contact Info) Description 07/25/2020 Telephone Hematology/Oncology at [address] [phone] Lashawn Skelton RN New Medication Request (New oral chemo- Lenvima) Social History Tobacco Use Types Packs/Day Years Used Date Smoking Tobacco: Never Smokeless Tobacco: Never Sex and Gender Information Value Date Recorded Sex Assigned at Not on file Gender Identity Not on file Sexual Orientation Not on file documented as of this encounter Miscellaneous Notes * Telephone Encounter - Lashawn Skelton RN - 07/25/2020 3:28 PM EST Oral Chemotherapy Check Note 07/25/2020 Monica Jaramillo, 1955 Prescriptions for oral chemotherapy were reviewed as follows: Oral Chemotherapy Order lenvatinib (LENVIMA) chemo capsule: Order details: ?? Dose: 24mg ?? Route: oral ?? Quantity to be dispensed #: 30 doses ?? Number of refills: 5 ?? Instructions: Take 24 mg by mouth daily. Call clinic before starting medication. ?? Cycle number and length: n/a ?? Start date: HARRISON, TBD Plan of care compared to information in the medical record, including note from provider on 07/25/2020 (date). The prescription was found to be complete and accurate. It was reviewed and signed by provider; prior authorization pending. Will fax to pharmacy once PA is complete. documented in this encounter Plan of Treatment Upcoming Encounters Date Type Department Care Team (Late st Contact Info) Description 02/24/2024 9:00 AM EDT Office Visit Hematology/Oncology at [address] [phone] Shon Schneider MD [facility] [place] [address] [address] HEMATOLOGY [place] [address] 02/24/2024 9:30 AM EDT Infusion Hematology Oncology at [address] [phone] 03/02/2024 11:00 AM EDT Office Visit Hematology/Oncology at [address] [phone] Shon Schneider MD [facility] [place] [address] [address] HEMATOLOGY [place] [address] 03/02/2024 12:30 PM EDT Infusion Hematology Oncology at [address] [phone] 03/09/2024 10:00 AM EDT Office Visit Hematology/Oncology at [address] [phone] Shon Schneider MD [facility] [address] Ciara Pitts APRN [address] [place] [address] DR HEMATOLOGY AND ONCOLOGY [place], [place] [address] 03/09/2024 10:30 AM EDT Infusion Hematology Oncology at [address] [phone] documented as of this encounter [...] on filedocumented in this encounter Care Teams Forepart Rounder Relationship Specialty Start Date End Date Jerzy Vidal MD [address] [place] [address] [place] [address] PCP - General [facility] Medicine 12/04/18 documented as of this encounter
--- OUTSIDE RECORDS SUMMARY | 2024-02-24 01:20 | XMS_ITS | Encounter Summary ---
Author Organization [facility] [place] [address] Care Team Providers Care Pmo Consultant Name Role Phone Jerzy Vidal MD Primary Care Provider [phone] Reason for Visit * Reason Comments Medication Refill Encounter Details Date Type Department Care Team (Late Contact Info) Description 09/28/2020 Refill Hematology/Oncology at [address] [phone] Shon Schneider MD [facility] [place] [address] Hypomagnesemia Social History Tobacco Use Types Packs/Day [...] AM EDT Office Visit Hematology/Oncology at [address] [phone] Shon Schneider MD [facility] [place] [address] Ciara Pitts APRN [address] [place] [address] DR HEMATOLOGY AND ONCOLOGY [place], [place] [phone] 02/24/2024 9:30 AM EDT Infusion Hematology Oncology at [address] [phone] 03/02/2024 11:00 AM EDT Office Visit Hematology/Oncology at [address] [phone] Shon Schneider MD [facility] [place] [address] HEMATOLOGY AND ONCOLOGY [place], [place] [id number] 03/02/2024 12:30 PM EDT Infusion Hematology Oncology at [address] [phone] 03/09/2024 10:00 AM EDT Office Visit Hematology/Oncology at [address] [phone] Shon Schneider MD [facility] [place] [address] [address] HEMATOLOGY AND ONCOLOGY [place], [place] [address] 03/09/2024 10:30 AM EDT Infusion Hematology Oncology at [address] [phone] documented as of this encounter Goals Goal [...] thymus documented in this encounter Care Teams Pmo Consultant Relationship Specialty Start Date End Date Jerzy Vidal MD [address] [place] [address] [place] [address] PCP - [facility] Medicine 12/04/18 documented as of this encounter
--- OUTSIDE RECORDS SUMMARY | 2024-02-24 01:20 | XMS_ITS | Encounter Summary ---
Author Organization [facility] Address [facility] [place] [address] Care Team Providers Care Tube Room Cashier Name Role Phone Jerzy Vidal MD Primary Care Provider [phone] Encounter Details Date Type Department Care Team (Late st Contact Info) Description 09/12/2020 9:30 AM EDT Office Visit Hematology/Oncology at [address] [phone] Shon Schneider MD [facility] [place] [address] Ivory Flynn [employer]IC [address] [place] [address] DR HEMATOLOGY ONCOLOGY [place], [place] [id number] Thymic carcinoma; Dyspnea, unspecified type Social History Tobacco Use Types Packs/Day Years Used Date Smoking Tobacco: Never Smokeless Tobacco: Never Sex and Gender Information Value Date Recorded Sex Assigned at Not on file Gender Identity Not on file Sexual Orientation Not on file documented as of this encounter Last Filed Vital Signs Vital Sign Reading Time Taken Comments Blood Pressure 145/88 09/12/2020 9:33 AM EDT Pulse 77 09/12/2020 9:33 AM EDT Temperature 35.8 ??C (96.5 ??F) 09/12/2020 9:33 AM ED T Respiratory Rate 22 09/12/2020 9:33 AM EDT Oxygen Saturation 95% 09/12/2020 9:33 AM EDT Inhaled Oxygen Concentration - - Weight 118.5 kg (261 lb 3.2 oz) 09/12/2020 9:33 AM EDT Height 175.3 cm (5' 9.02) 09/12/2020 9:33 AM ED T Body Mass Index 38.55 09/12/2020 9:33 AM EDT documented in this encounter Progress Notes * Ivory Flynn, EUGENIO - 09/12/2020 9:30 AM EDT Subjective: Patient ID: Monica Jaramillo [...] effusion with compression atelectasis. ?? transferred to [facility] for further [...] - CONSULT SLIDES FROM [facility]; [place], [place]: A. MEDIASTINUM, MASS, BIOPSY ([id number]; 03/22/2017): ? 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 ?Immunohistochemistry performed at the outside institution and reviewed at [facility] demonstrates the following staining profile in lesional cells: ? Positive - AE1/AE3, p40, PAX8, CD117, CD5(multifocal), CK7(scattered cells), synaptophysin, chromogranin ? Negative - CK20, TTF-1, GATA3, CD34 ? The immunohistochemical profile supports the above diagnosis. ? Ki67 (MIB-1) proliferation index performed at the referring institution and reviewed at [facility] is focally up to ~30%. NOTE: While diffuse synaptophysin and chromogranin expression is unusual for conventional thymic carcinoma, the overall histomorphology and immunophenotype is most in keeping with THYMIC SQUAMOUS CARCINOMA.?The extent of PAX8 and CD117 staining would be unusual for Nut carcinoma. B. MEDIASTINUM, ANTERIOR, 4.5 CM, ULTRASOUND GUIDED FINED NEEDLE ASPIRATION ([id number]; 03/22/17): The cytologic preparations were not reviewed [...] Second opinion with Dr. Roddy Vega in [place]. ??They reviewed the pathology and concurred they [...] 60-65%). ?? 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 ?? Fam Hx: No h/o cancer INTERVAL HPI 09/12/20 Monica Jaramillo is a 64 yo female with stage IV thymic carcinoma diagnosed in 03/29. (Refer to extensive history summarized above.) Monica returns to the [facility] oncology clinic today accompanied by her Royce for clinic visit for evaluation of Lenvatinib therapy. Monica started Lenvatinib 24 mg po QD on 08/15/20. Monica was seen by surgery at [facility] 08/19/20 and had a thoracentisis of a left pleural effusion. She reports about 600cc of fluid was removed. She further notes she had a significant loss of fluid systemically for several days afterward. She reports voiding frequently, and today has maintained a 13 pound fluid weight loss. She reports feeling well today. Monica continues to have a good response to the thoracentesis done several weeks ago. She denies shortness of breath, chest pain or new cough. She said she randomly checks her oxygen saturation levels at home and they have consistently been 98%. She denies any furtherfluid weight gain. She has found the Flovent inhaler to be helpful, and is using it just once a day currently. She is bothered by chronic left knee pain. She is using a walker at home for knee support. At this point she is just hoping it will get better without much intervention although she doesn't have a definitive diagnosis. Monica says she has been eating well, trying to eat healthy.No nausea. Occasional taste changes. Shegenerally moves her bowels daily. Occasionally she uses Miralax and eats prunes if she misses a day. She is sleeping pretty well using Melatonin and CBD drops. Monica has not developed any signs of hand-foot syndrome. She continues to whitman a lot of encouragement from her thymic support group. Allergies Allergen Reactions ??? Carboplatin ??? Penicillins Hives ??? Pollen Extracts Other (See Comments) rhinorrhea Current Medications ??? fluticasone propionate (FLOVENT) 44 mcg/actuation HFA Aerosol Inhaler ??? lenvatinib (LENVIMA) chemo capsule ??? aMILoride (Midamor) 5 mg Tablet ??? ALBUTEROL INHL ??? levothyroxine (Synthroid) 25 [...] sores and trouble swallowing. Eyes: Negative. Respiratory: Negative for cough and shortness [...] not in acute distress. Appearance: Normal appearance. Cardiovascular: Rate and Rhythm: Normal rate and regular rhythm. Heart sounds: Normal heart sounds. Pulmonary: Effort: No respiratory distress. Breath sounds: Normal breath sounds. No wheezing or rales. Comments: Breath sounds diminished bilaterally in lower kim. Abdominal: Tenderness: [...] Thought content normal. Judgment: Judgment normal. BP 145/88 Pulse 77 Temp 35.8 ??C (96.5 ??F) (Temporal) Resp 22 Ht 175.3 cm (5' 9.02) Wt 118.5 kg (261 lb 3.2 oz) SpO2 95% BMI 38.55 kg/m?? LABS 09/11/20 WBC 8.5; ANC 3.22; H/H 14.6/ 45.2; PLT 129; BUN 14; CREAT 0.80; ALP 79; AST 36; ALT 20; K+ 4.8 LABS 08/28/20 WBC 7.5; ANC 3.46; H/H 13.9/ 44.2; PLT 112; BUN 23; CREAT 0.80; BILI 1.5; ALP 72; ALT 20; AST 40. RECENT IMAGING 08/14/20 - Chest CT - IMPRESSION - Anterior mediastinal mass grossly stable and consistent with history of thymic carcinoma. Multiple stable mediastinal LNs. Multiple stable pleural mets. Moderate left and small right pleural effusions presumably metastatic have increased in size compared to most recent CT. Stable atelectasis LLL. Small pericardial effusion stable. Assessment: Monica Jaramillo is a 64 yo female with stage IV thymic carcinoma diagnosed in 03/29. (Refer to extensive history summarized above.) Monica returns to the [facility] oncology clinic accompanied by her Royce for evaluation of daily Levatinib 24mg po QD which she started 08/18/20. CBC and CMP reviewed with Monica and Royce today. She has tolerated Lenvatinib without toxicity so far. Plan:. Continue Levatinib - 24 mg po QD. Compazine as needed. RTC 2 weeks for visit and labs or call sooner for questions or concerns. documented in this encounter Plan of Treatment Upcoming Encounters Date Type Department Care Team (Late st Contact Info) Description 02/24/2024 9:00 AM EDT Office Visit Hematology/Oncology at [address] [phone] Shon Schneider MD [facility] [place] [address] [address] HEMATOLOGY AND ONCOLOGY [place], [place] [address] [phone] 02/24/2024 9:30 AM EDT Infusion Hematology Oncology at [address] [phone] 03/02/2024 11:00 AM EDT Office Visit Hematology/Oncology at [address] [phone] Shon Schneider MD [facility] [place] [address] [address] HEMATOLOGY AND ONCOLOGY [place], [place] [phone] 03/02/2024 12:30 PM EDT Infusion Hematology Oncology at [address] [phone] 03/09/2024 10:00 AM EDT Office Visit Hematology/Oncology at [address] [phone] 61 Shon Schneider MD [facility] [place] [address] HEMATOLOGY AND ONCOLOGY [place], [place] [address] 03/09/2024 10:30 AM EDT Infusion Hematology Oncology at [address] [phone] documented as of this encounter Goals Goal [...] thymus documented in this encounter Care Teams Tube Room Cashier Relationship Specialty Start Date End Date Jerzy Vidal MD [address] [place] [address] [place] [address] PCP - [facility] Medicine 12/04/18 documented as of this encounter
--- OUTSIDE RECORDS SUMMARY | 2024-02-24 01:20 | XMS_ITS | Encounter Summary ---
Author Organization [facility] Address [facility] [place] [address] Care Team Providers Care Car Shifter Name Role Phone Jerzy Vidal MD Primary Care Provider [phone] Encounter Details Date Type Department Care Team (Late st Contact Info) Description 06/12/2020 11:00 AM EST Office Visit Hematology/Oncology at [address] [phone] Shon Schneider MD [facility] [place] [address] Thymic carcinoma Social History Tobacco Use Types Packs/Day Years Used Date Smoking Tobacco: Never Smokeless Tobacco: Never Sex and Gender Information Value Date Recorded Sex Assigned at Not on file Gender Identity Not on file Sexual Orientation Not on file documented as of this encounter Last Filed Vital Signs Vital Sign Reading Time Taken Comments Blood Pressure 138/64 06/12/2020 10:47 AM EST Pulse 76 06/12/2020 10:47 AM EST Temperature 36.3 ??C (97.3 ??F) 06/12/2020 10:[address] Respiratory Rate 18 06/12/2020 10:47 AM EST Oxygen Saturation 97% 06/12/2020 10:47 AM EST Inhaled Oxygen Concentration - - Weight 124.3 kg (274 lb) 06/12/2020 10:47 AM EST Height 176 cm (5' 9.29) 06/12/2020 10:47 AM EST Body Mass Index 40.12 06/12/2020 10:47 AM EST documented in this encounter Progress Notes * Shon Schneider MD - 06/12/2020 11:00 AM EST Subjective: Patient ID: Monica Jaramillo [...] B. Biopsy of mediastinal mass 03/29 Path ([facility] review) - Mediastinum, mass, biopsy: 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 [facility] review - CONSULT SLIDES FROM [facility]; [place], [place]: A. MEDIASTINUM, MASS, BIOPSY ([id number]; 03/22/2017): ? 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 ?Immunohistochemistry performed at the outside institution and reviewed at [facility] demonstrates the following staining profile in lesional cells: ? Positive - AE1/AE3, p40, PAX8, CD117, CD5(multifocal), CK7(scattered cells), synaptophysin, chromogranin ? Negative - CK20, TTF-1, GATA3, CD34 ? The immunohistochemical profile supports the above diagnosis. ? Ki67 (MIB-1) proliferation index performed at the referring institution and reviewed at [facility] is focally up to ~30%. NOTE: While diffuse synaptophysin and chromogranin expression is unusual for conventional thymic carcinoma, the overall histomorphology and immunophenotype is most in keeping with THYMIC SQUAMOUS CARCINOMA.?The extent of PAX8 and CD117 staining would be unusual for Nut carcinoma. B. MEDIASTINUM, ANTERIOR, 4.5 CM, ULTRASOUND GUIDED FINED NEEDLE ASPIRATION ([id number]; 03/22/17): The cytologic preparations were not reviewed [...] Second opinion with Dr. Roddy Vega in [place]. They reviewed the pathology and concurred they [...] therapy with pembrolizumab L. CT c/a/p 11/06/19 ([facility] second read) - IMPRESSION 1. Worsening left-sided [...] Began therapy with gemcitabine plus capecitabine, s/p 3 cycles (gemcitabine - day 1 and 8; capecitabine bid for 14 days then 7 days off) P. CT 04/30/20 - Impression: Anterior mediastinal mass not significantly changed since prior study. Multiple pleural based nodules and masses in left hemithorax again noted and not significantly changed. There is however a smallbut increasing left pleural effusion, likely malignant. Overall volume loss in left hemithorax withsegmental atelectasis of left lower lobe with bronchial contiguity to the left hilum, stable. Knownupper abdominal wall defect with contained loop of bowel, probably transverse colon based on prior imaging. 2. H/o atrial fibrillation 3. HTN 4. [...] LV filling pressures. (LVEF 60-65%). HPI Ms. Jaramillo is seen in f/u thymic carcinoma. The history is summarized above. Due to visitor restrictions related to the Covid 19 pandemic, she is by herself in clinic today. She is feeling generally well. The gemcitabine was held two weeks ago due to a low ANC. She completed the course of capecitabine. She has intermittent SOB which is associated with left sided abdominal bloating and gassiness. It seems to correlate with when she is on the capecitabine. Her bowels are regular. No diarrhea or stomatitis. No fevers or chills. No chest pain and no pain at all. The LE edema is better. Soc Hx: , lives in [place], [place] Tob - Never Etoh - rare [...] are negative. Objective: Physical Exam Constitutional: She is oriented to person, place, and time. She appears well- developed and well-nourished. No distress. HENT: Head: Normocephalic and atraumatic. Mouth/Throat: Oropharynx is clear and moist. No oropharyngeal exudate. Eyes: No scleral icterus. Cardiovascular: Normal rate and regular rhythm. Pulmonary/Chest: Effort normal. No respiratory distress. She has no wheezes. She has no rales. Abdominal: She exhibits no distension. Musculoskeletal: General: No edema. Lymphadenopathy: She has no cervical adenopathy. She has no axillary adenopathy. Right: No supraclavicular adenopathy present. Left: No supraclavicular adenopathy present. Neurological: She is alert and oriented to person, place, and time. Coordination normal. Skin: Skin is warm and dry. No rash noted. Psychiatric: She has a normal mood and affect. Her behavior is normal. Vitals reviewed. Labs: WBC/ANC - 7.06/3949, Hgb/Hct - 11.7/38.5, Plts - 279,000. BUN/Cr - 10/0.7. Mg - 1.6, AST - 37.Lytes and LFTs o/w unremarkable. LDH - 436 (313-618); TSH - 1.45, fT4 - 1.35 Assessment and Plan: Ms. Jaramillo is a 64 yo female seen in f/u of thymic carcinoma, as [...] pembrolizumab. I spoke with Dr. Vega at [facility]. There were no clinical [...] mg/day, 2 weeks followed by one w point lay ira off, with cycles repeated every three weeks. [...] Shon Ramon at [facility]. He agrees that gemcitabine plus capecitabine is very reasonable and that he would consider using lenvatinib in the next line setting. She began therapy with gemcitabine plus capecitabine on 02/29/20 and has received three cycles. She has tolerated that well although day 8 of cycle 3 was held due to low ANC. She completed the course of capecitabine. The labs are good today and we will plan to go ahead with cycle 4/day 1 gemcitabineat full dose. If we are not able to give day 8 again with this cycle, will need to consider a dose r eduction vs omitting day 8 therapy. We will plan to see her next week. We discussed repeating a CT scan after cycle 5. documented in this encounter Plan of Treatment Upcoming Encounters Date Type Department Care Team (Late st Contact Info) Description 02/24/2024 9:00 AM EDT Office Visit Hematology/Oncology at [address] [phone] Shon Schneider MD [facility] [address] Ciara Pitts APRN [address] [place] [address] H[place]ATOLOGY [place] [address] 02/24/2024 9:30 AM EDT Infusion Hematology Oncology at [address] [phone] 03/02/2024 11:00 AM EDT Office Visit Hematology/Oncology at [address] [phone] Shon Schneider MD [facility] [place] [address] [address] HEMATOLOG[place] [address] 03/02/2024 12:30 PM EDT Infusion Hematology Oncology at [address] [phone] 03/09/2024 10:00 AM EDT Office Visit Hematology/Oncology at [address] [phone] Shon Schneider MD [facility] [place] [address] [address] HEMATOLOGY [place] [address] 03/09/2024 10:30 AM EDT Infusion Hematology Oncology at [address] [phone] documented as of this encounter Goals Goal [...] thymus documented in this encounter Care Teams Car Shifter Relationship Specialty Start Date End Date Jerzy Vidal MD [address] [place] [address] [place] [address] PCP - General [facility] 12/04/18 documented as of this encounter
--- OUTSIDE RECORDS SUMMARY | 2024-02-24 01:20 | XMS_ITS | Encounter Summary ---
Author Organization [facility] [place] [address] Care Team Providers Care Washcloth Folder Name Role Phone Jerzy Vidal MD Primary Care Provider [phone] Encounter Details Date Type Department Care Team (Late Contact Info) Description 07/29/2020 Notes Only Hematology [place] [phone] Keely Gayle, RN Social History Tobacco Use Types Packs/Day Years Used Date Smoking Tobacco: Never Smokeless Tobacco: Never Sex and Gender Information Value Date Recorded Sex Assigned at Not on file Gender Identity Not on file Sexual Orientation Not on file documented as of this encounter Progress Notes * Keely Gayle, RN - 07/29/2020 11:32 AM EST [facility] test requisition form faxed to ([phone]) with confirmation received 07/29/20 documented in this encounter Plan of Treatment Upcoming Encounters Date Type Department Care Team (Late Contact Info) Description 02/24/2024 9:00 AM EDT Office Visit Hematology/Oncology at [address] [phone] Shon Schneider MD [facility] [place] [address] [address] HEMATOLOGY AND ONCOLOGY [place], [place] [address] [phone] 02/24/2024 9:30 AM EDT Infusion Hematology Oncology at [address] [phone] 03/02/2024 11:00 AM EDT Office Visit Hematology/Oncology at [address] [phone] 71 Shon Schneider MD [facility] [place] [address] [address] HEMATOLOGY AND ONCOLOGY [place], [place] [phone] 03/02/2024 12:30 PM EDT Infusion Hematology Oncology at [address] [phone] 03/09/2024 10:00 AM EDT Office Visit Hematology/Oncology at [address] [phone] Shon Schneider MD [facility] [place] [address] [address] HEMATOLOGY AND ONCOLOGY [place], [place] [phone] 03/09/2024 10:30 AM EDT Infusion Hematology Oncology at [address] [phone] documented as of this encounter Goals Goal [...] on filedocumented in this encounter Care Teams Washcloth Folder Relationship Specialty Start Date End Date Jerzy Vidal MD [address] [place] [address] [place] [address] PCP - [facility] Medicine 12/04/18 documented as of this encounter
--- OUTSIDE RECORDS SUMMARY | 2024-02-24 01:20 | XMS_ITS | Encounter Summary ---
Demographics Address [address] [facility] [address] [place] [address] Home Phone Email Address .Club 42cm m Preferred Language Portuguese Marital Status Jainism Affiliation Unknown Race White Ethnic Group Not or Lati no Author Organization [facility] [place] [address] Care Team Providers Care Yeast Cake Cutter Name Role Phone Jerzy Vidal MD Primary Care Provider Encounter Details Date Type Department Care Team (Late Contact Info) Description 07/24/2020 Ancillary Procedure [place] [address] Jerzy Vidal MD [address] [place] [id number] Social History Tobacco Use Types Packs/Day Years [...] AM EDT Office Visit Hematology/Oncology at [address] [phone] Shon Schneider MD [facility] [place] [address] Ciara Pitts APRN [address] [place] [address] DR HEMATOLOGY AND ONCOLOGY [place], [place] [address] 02/24/2024 9:30 AM EDT Infusion Hematology Oncology at [address] [phone] 03/02/2024 11:00 AM EDT Office Visit Hematology/Oncology at [address] [phone] Shon Schneider MD [facility] [place] [address] HEMATOLOGY AND ONCOLOGY [place], [place] [address] 03/02/2024 12:30 PM EDT Infusion Hematology Oncology at [address] [phone] 03/09/2024 10:00 AM EDT Office Visit Hematology/Oncology at [address] [phone] Shon Schneider MD [facility] [place] [address] [address] HEMATOLOGY AND ONCOLOGY [place], [place] [address] 03/09/2024 10:30 AM EDT Infusion Hematology Oncology at [address] [phone] documented as of this encounter Goals Goal Patient Goal Type Associated Problems Recent Progress Patient-Stated? Author DH Home Medication Compliance and Understanding Patient Facing Action Plan On track( 019 3:22 PM EST) Ivana Ashraf, [facility] Note: Remain 95% or better adherent to chemotherapy without severe side effects as assessed by days supply and patient reported adverse events at each refill documented as of this encounter Procedures Procedure Name Priority Date/Time Associated Diagnosis Comments FILM LIBRARY STORAGE ONLY CT CHEST Routine 07/24/2020 12:00 AM EST documented in this encounter Results * Film Library- Storage Only CT Chest (07/24/2020 12:00 AM EST) Narrative HELDER - 07/25/2020 8:36 AM EST This exam is auto-finalizing. It's purpose is for storage only. Jerzy Vidal MD G FILM LIBRARY ORD ERABLES Performing Organization Address City/State/[facility] Co de Phone Number [place], [place] documented in this encounter Visit Diagnoses Not on filedocumented in this encounter Care Teams Yeast Cake Cutter Relationship Specialty Start Date End Date Jerzy Vidal MD [address] [place] [address] [place] [address] PCP - [facility] Medicine 12/04/18 documented as of this encounter
--- OUTSIDE RECORDS SUMMARY | 2024-02-24 01:20 | XMS_ITS | Encounter Summary ---
Author Organization [facility] [place] [address] Care Team Providers Care Editor School Photograph Name Role Phone Jerzy Vidal MD Primary Care Provider [phone] Encounter Details Date Type Department Care Team (Late st Contact Info) Description 08/18/2020 3:00 PM EST Office Visit Hematology/Oncology at [address] [phone] Ivory Flynn FIXED INCOME PORTFOLIO MANAGER [address] [place] [address] DR HEMATOLOGY ONCOLOGY [place], [place] [id number] Thymic carcinoma; Dyspnea, unspecified type Social History Tobacco Use Types Packs/Day Years Used Date Smoking Tobacco: Never Smokeless Tobacco: Never Sex and Gender Information Value Date Recorded Sex Assigned at Not on file Gender Identity Not on file Sexual Orientation Not on file documented as of this encounter Last Filed Vital Signs Vital Sign Reading Time Taken Comments Blood Pressure 123/82 08/18/2020 3:02 PM EST Pulse 60 08/18/2020 3:02 PM EST Temperature 37.1 ??C (98.8 ??F) 08/18/2020 3:02 PM ES T Respiratory Rate 24 08/18/2020 3:02 PM EST Oxygen Saturation 92% 08/18/2020 3:02 PM EST Inhaled Oxygen Concentration - - Weight 128.8 kg (284 lb) 08/18/2020 3:02 PM EST Height 175.3 cm (5' 9) 08/18/2020 3:02 PM EST Body Mass Index 41.94 08/18/2020 3:02 PM EST documented in this encounter Progress Notes * Ivory Flynn, FIXED INCOME PORTFOLIO MANAGER - 08/18/2020 3:00 PM EST Subjective: Patient ID: Monica Jaramillo [...] effusion with compression atelectasis. ?? transferred to [facility] for further [...] B. Biopsy of mediastinal mass 03/29 Path ([facility] review) - Mediastinum, mass, biopsy: 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 ?? [facility] - CONSULT SLIDES FROM [facility]; [place], [place]: A. MEDIASTINUM, MASS, BIOPSY ([id number]; 03/22/2017): ? MALIGNANT THYMIC EPITHELIAL NEOPLASM consistent [...] 4.5 CM, ULTRASOUND GUIDED FINED NEEDLE ASPIRATION ([id number]; 03/22/17): The cytologic preparations were not reviewed [...] opinion with Dr. Roddy Vega in [place]. ??They reviewed the pathology and concurred they [...] therapy with pembrolizumab L. CT c/a/p 11/06/19 ([facility] second read) - IMPRESSION 1. ??Worsening left-sided [...] 60-65%). ?? 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 ?? Fam Hx: No h/o cancer INTERVAL HPI 08/18/20 Monica Jaramillo is a 64 yo female with stage IV thymic carcinoma diagnosed in 03/29. (Refer to extensive history summarized above.) Monica returns to the [facility]- oncology clinic today accompanied by her Royce for clinic visit and to review side effects for the new medication starting today. Monica will be taking Lenvatinib 24 mg po QD. Monica's Chest CT of 08/21/20 showed thoracic progression of her metastatic thymic cancer. Monica feels pretty good with the exception of her breathing. She has a lot of energy, but gets easily short of breath when walking and recovers easily when sitting. She is able to talk at length without difficulty. She denies dizziness or chest pain. She does have a cough that is productive of sometimes light greenish sputum. Monica reports feeling wheezy intermittently. Some days she needs to usethe Albuterol inhaler every 4 hours. She thinks a steroid inhaler might help. We reviewed potential side effects of Lenvatinib. Monica has reviewed the literature. She notes she did quite well on the Capecitabine in terms of no nausea, and no hand-foot syndrome. We went over the rare, but potentially life threatening reported toxicities of encephalopathy and GI perforation. She verbalizes understanding. She confirms she will be taking 24 mg po QD. She has the medication and will start today. She has not had any problems with fever, chills, infections, numbness or tingling. Allergies Allergen Reactions ??? Carboplatin ??? Penicillins Hives ??? Pollen Extracts Other (See Comments) rhinorrhea Current Medications ??? lenvatinib (LENVIMA) chemo capsule ??? CAPEcitabine (XELODA) chemo tablet ??? aMILoride (Midamor) 5 mg Tablet ??? [...] trouble swallowing. Eyes: Negative. Respiratory: Positive for cough and shortness of breath. Moderate with exertion Cardiovascular: Negative for chest pain and palpitations. Gastrointestinal: Negative for abdominal distention, constipation, diarrhea and nausea. Genitourinary: Negative. Musculoskeletal: Negative. Skin: Negative for [...] No wheezing or rales. Comments: Breath sounds mildly diminished bilaterally Abdominal: Tenderness: There is no abdominal tenderness. [...] Thought content normal. Judgment: Judgment normal. BP 123/82 (Patient Position: Sitting) Pulse 60 Temp 37.1 ??C (98.8 ??F) (Temporal) Resp 24 Ht 175.3 cm (5' 9) Wt 128.8 kg (284 lb) SpO2 92% BMI 41.94 kg/m?? No labs today RECENT IMAGING 08/14/20 - Chest CT - [...] the [facility] oncology clinic accompanied by her Royce for evaluation and initiation of daily Levatinib 24mg po QD. Monica is doing as well as expected with increasing pleural effusions. She is anxious to start the Levatinib and to meet with the surgeon tomorrow for thoracentisis. She has a good understanding of potential side effects and when to seek emergent care. Plan:. Start Levatinib today - 24 mg po QD. Compazine as needed. Prescription for Flovent inhaler 44 mcg, one puff bid. Potential thoracentisis tomorrow. RTC 08/29/20 with labs. documented in this encounter Plan of Treatment Upcoming Encounters Date Type Department Care Team (Late st Contact Info) Description 02/24/2024 9:00 AM EDT Office Visit Hematology/Oncology at [address] [phone] Shon Schneider MD [facility] [place] [address] Ciara Pitts [address] HEMATOLOGY AND ONCOLOGY [place], [place] [id number] 02/24/2024 9:30 AM EDT Infusion Hematology Oncology at [address] [phone] 03/02/2024 11:00 AM EDT Office Visit Hematology/Oncology at [address] [phone] Shon Schneider MD [facility] [place] [address] Ciara Pitts [address] [place] [address] 03/02/2024 12:30 PM EDT Infusion Hematology Oncology at [address] [phone] 03/09/2024 10:00 AM EDT Office Visit Hematology/Oncology at [address] [phone] Shon Schneider MD [facility] [place] [address] Ciara Pitts APRN [address] [place] [address] DR HEMATOLOGY AND ONCOLOGY [place], [place] [id number] 03/09/2024 10:30 AM EDT Infusion Hematology Oncology at [address] [phone] documented as of this encounter Goals Goal Patient Goal Type Associated Problems Recent Progress Patient-Stated? Author DH Home Medication Compliance and Understanding Patient Facing Action Plan On track( 019 3:22 PM EST) Ivana Ashraf, [facility] Note: Remain 95% or better adherent to chemotherapy without severe side effects as assessed by days supply and patient reported adverse events at each refill documented as of this encounter Visit Diagnoses Diagnosis Thymic carcinoma Malignant neoplasm of thymus Dyspnea, unspecified type Thymic carcinoma Malignant neoplasm of thymus documented in this encounter Care Teams Editor School Photograph Relationship Specialty Start Date End Date Jerzy Vidal MD [address] [place] [address] [place] [address] PCP - General [facility] Medicine 12/04/18 documented as of this encounter
--- OUTSIDE RECORDS SUMMARY | 2024-02-24 01:20 | XMS_ITS | Encounter Summary ---
Author Organization [facility] Address [facility] [place] [address] Care Team Providers Care Pattern Chain Maker Supervisor Name Role Phone Jerzy Vidal MD Primary Care Provider [phone] Reason for Visit * Reason Comments Chemotherapy Cycle 7, Day 1 * Treatment/Therapy Plan Authorization (Routine) - Closed Specialty Diagnoses / Procedures Referred By Franklyn del rio Referred To Contact Diagnoses Thymic carcinoma Procedures TC GEMCITABINE HCL, 200MG, INJECTION (GEMZAR) Shon Schneider MD [facility] [place] [address] St Hem Onc Infusion [address] [place] [phone] Referral ID Status Reason Start Date Expiration Date Visits Re quested Visits Authorized [id number] Closed 02/28/2020 02/28/2021 18 18 Encounter Details Date Type Department Care Team (Late st Contact Info) Description 07/04/2020 2:00 PM EST Infusion Hematology Oncology at [address] [phone] Thymic carcinoma Social History Tobacco Use Types Packs/Day Years Used Date Smoking Tobacco: Never Smokeless Tobacco: Never Sex and Gender Information Value Date Recorded Sex Assigned at Not on file Gender Identity Not on file Sexual Orientation Not on file documented as of this encounter Progress Notes * Boaz Amos RN - 07/04/2020 2:00 PM EST INFUSION THERAPY ADMINISTRATION NOTES DIAGNOSIS: Thymic Cancer CYCLE #7: Day 1 REASON FOR VISIT: Gemcitabine infusion SUBJECTIVE: Monica Jaramillo offers no complaints. OBJECTIVE: VSS. Seen by provider. Ready to treat. LAB DATA: WNL & reviewed by provider. IV ACCESS: Mediport Pre administration: Chemotherapy orders independently verified for drug name, route, and dosage per patient's height, weight and BSA by Boaz Amos RN and on-site [facility]. REACTIONS (DESCRIPTION, TIME, INTERVENTION AND EFFECTIVENESS) none ASSESSMENT Monica Jaramillo was awake, alert and she tolerated treatment well. PLAN Return to clinic per protocol. documented in this encounter Plan of Treatment Upcoming Encounters Date Type Department Care Team (Late st Contact Info) Description 02/24/2024 9:00 AM EDT Office Visit Hematology/Oncology at [address] [phone] Shon Schneider MD [facility] [place] [address] HEMATOLOGY [place] [address] 02/24/2024 9:30 AM EDT Infusion Hematology Oncology at [address] [phone] 03/02/2024 11:00 AM EDT Office Visit Hematology/Oncology at [address] [phone] Shon Schneider MD [facility] [place] [address] HEMATOLOGY [place] [address] 03/02/2024 12:30 PM EDT Infusion Hematology Oncology at [address] [phone] 03/09/2024 10:00 AM EDT Office Visit Hematology/Oncology at [address] [phone] Shon Schneider MD [facility] [place] [place] [address] Ciara Pitts APRN [address] [place] [address] DR HEMATOLOGY [place] [address] 03/09/2024 10:30 AM EDT Infusion Hematology Oncology at [address] [phone] documented as of this encounter [...] 10 mg, Intravenous, ONCE, 1 dose, On Tue07/04/20 at 1445 Given 07/04/2020 2:36 PM EST 10 mg GEMcitabine 2,400 mg in sodium chloride 0.9% 313.12 mL infusion 2,400 mg, Intravenous, ONCE, 1 dose, On Tue07/04/20 at 1545, Administer over 30 Minutes, Warning Vesicant/Irritant Medication Dose Ordered = 2440 mg (1000 mg/m2). Pharmacist rounded dose per procedure re-ordered by provider. New Bag 07/04/2020 2:58 PM EST 2,400 mg 626 mL/hr heparin (pf) (porcine) (100 units/mL) flush 5 mL syringe 500 Units 500 Units, Intravenous, ONCE PRN, Starting on Tue07/04/20 at 1418, Until Tue07/04/20 at 1738, Line Care, Refer to Intravenous (IV) Procedure: Accessing Implanted Vascular Access Devices (654) procedure and/or Intravenous (IV) Job Aid: Adult Flushing & Catheter Care (7808) job aid for additional information regarding guidelines and administration., Routine Given 07/04/2020 3:30 PM EST 500 Units ondansetron (Zofran) tablet 8 mg 8 mg, Oral, ONCE, 1 dose, On Tue07/04/20 at 1445, Administer prior to chemotherapy, Routine Given 07/04/2020 2:34 PM EST 8 mg sodium chloride 0.9 % (flush) flush 5-20 mL 5-20 mL, Intravenous, EVERY 1 MIN PRN, Starting on Tue07/04/20 at 1418, Until Tue07/04/20 at 1738, Line Care, Flush pertains to all indwelling lines. Flush per protocol found in the job aid using the link provided on this medication record. Refer to Intravenous (IV) Job Aid: Adult Flushing & Catheter Care (7593) job aid for additional information regarding guidelines and administration., Routine Given 07/04/2020 3:30 PM EST 20 mLs documented in this encounter Care Teams Pattern Chain Maker Supervisor Relationship Specialty Start Date End Date Jerzy Vidal MD [address] [place] [id number] PCP - [facility] Medicine 12/04/18 documented as of this encounter
--- OUTSIDE RECORDS SUMMARY | 2024-02-24 01:20 | XMS_ITS | Encounter Summary ---
Author Organization [facility] [place] [address] Care Team Providers Care Flight Operations Engineer Name Role Phone Jerzy Vidal MD Primary Care Provider [phone] Reason for Visit * Reason Onset Date Comments Questions 08/12/2020 Encounter Details Date Type Department Care Team (Late st Contact Info) Description 08/12/2020 Telephone Hematology/Oncology at [address] [phone] Boaz Amos, SEBASTIAN Questions Social History Tobacco Use Types Packs/Day Years Used Date Smoking Tobacco: Never Smokeless Tobacco: Never Sex and Gender Information Value Date Recorded Sex Assigned at Not on file Gender Identity Not on file Sexual Orientation Not on file documented as of this encounter Miscellaneous Notes * Telephone Encounter - Boaz Amos RN - 08/12/2020 10:14 AM EST Called and spoke with Monica Jaramillo who reports she is scheduled for chest CT this 08/14 at [facility] and appointment with surgeon also that day at 0930. She reports she received Lenvatinib in mail and wondering if she can start. Reviewed with Dr Schneider who advises she wait until after her evaluation. Monica is disappointed as she is eager to start treatment but in agreement with plan. Will touch base with her Tuesday to re-evaluate. ----- Message from Brionna Andrade RN sent at 08/12/2020 9:25 AM EST ----- Stefanie Morales see below can you call Monica, see my note from yesterday, according to christ's snote she can start new med after she calls us ivelisse jodran ----- Message ----- From: Anni Cruz Sent: 08/12/2020 9:14 AM EST To: Brionna Andrade, SEBASTIAN Anderson, Would like you to call her about her upcoming surgery that we referred her to. Also her medication came yesterday. She would like to speak to you when she should start it. [phone] Thank you, Anni documented in this encounter Plan of Treatment Upcoming Encounters Date Type Department Care Team (Late st Contact Info) Description 02/24/2024 9:00 AM EDT Office Visit Hematology/Oncology at [address] [phone] Shon Schneider MD [facility] [place] [address] [address] [place] [address] 02/24/2024 9:30 AM EDT Infusion Hematology Oncology at [address] [phone] 03/02/2024 11:00 AM EDT Office Visit Hematology/Oncology at [address] [phone] Shon Schneider MD [facility] [place] [address] [address] [place] [address] 03/02/2024 12:30 PM EDT Infusion Hematology Oncology at [address] [phone] 03/09/2024 10:00 AM EDT Office Visit Hematology/Oncology at [address] [phone] Shon Schneider MD [facility] [place] [address] Ciara Pitts, SHIPPING/RECEIVING MANAGER [address] [place] [address] DR [place]Y [place] [address] 03/09/2024 10:30 AM EDT Infusion Hematology Oncology at [address] [phone] documented as of this encounter Goals Goal Patient Goal Type Associated Problems Recent Progress Patient-Stated? Author DH Home Medication Compliance and Understanding Patient Facing Action Plan On track( 019 3:22 PM EST) Ivana Ashraf, [facility] Note: Remain 95% or better adherent to chemotherapy without severe side effects as assessed by days supply and patient reported adverse events at each refill documented as of this encounter Visit Diagnoses Not on filedocumented in this encounter Care Teams Flight Operations Engineer Relationship Specialty Start Date End Date Jerzy Vidal MD [address] [place] [address] [place] [address] PCP - General [facility] Medicine 12/04/18 documented as of this encounter
--- OUTSIDE RECORDS SUMMARY | 2024-02-24 01:20 | XMS_ITS | Encounter Summary ---
Author Organization [facility] [place] [address] Care Team Providers Care Video Control Operator Name Role Phone Jerzy Vidal MD Primary Care Provider [phone] Reason for Visit * Reason Comments IV Access port flush Encounter Details Date Type Department Care Team (Late st Contact Info) Description 09/12/2020 10:00 AM EDT Infusion Hematology Oncology at [address] [phone] Thymic carcinoma Social History Tobacco Use Types Packs/Day Years Used Date Smoking Tobacco: Never Smokeless Tobacco: Never Sex and Gender Information Value Date Recorded Sex Assigned at Not on file Gender Identity Not on file Sexual Orientation Not on file documented as of this encounter Progress Notes * Boaz Amos RN - 09/12/2020 10:00 AM EDT INFUSION THERAPY ADMINISTRATION NOTES DIAGNOSIS: 1. Thymic carcinoma heparin (pf) (porcine) (100 units/mL) flush 5 mL syringe 500 Units sodium chloride 0.9 % (flush) flush 20 mL REASON FOR VISIT: MEDIPORT FLUSH ONLY IV ACCESS: Mediport GAUGE: 19G BLOOD RETURN: yes ANY S/S OF INFECTION/EXTRAVASATIONS: no signs of IV complications observed IV FLUSHED WITH: 20cc NS and 500 units Heparin IV DISCONTINUED: yes ASSESSMENT: Patient tolerated treatment well. PLAN: Return to clinic per routine. Pt aware maintenance port flushes are recommended every 4-6 weeks. documented in this encounter Plan of Treatment Upcoming Encounters Date Type Department Care Team (Late st [facility] Info) Description 02/24/2024 9:00 AM EDT Office Visit Hematology/Oncology at [address] [phone] Shon Schneider MD [facility] [place] [address] [address] HEMATOLOGY AND ONCOLOGY [place], [place] [address] [phone] 02/24/2024 9:30 AM EDT Infusion Hematology Oncology at [address] [phone] 03/02/2024 11:00 AM EDT Office Visit Hematology/Oncology at [address] [phone] Shon Schneider MD [facility] [place] [address] [address] HEMATOLOGY AND ONCOLOGY [place], [place] [address] [phone] 03/02/2024 12:30 PM EDT Infusion Hematology Oncology at [address] [phone] 03/09/2024 10:00 AM EDT Office Visit Hematology/Oncology at [address] [phone] Shon Schneider MD [facility] [place] [address] Ciara Pitts [address] HEMATOLOGY AND ONCOLOGY [place], [place] [address] [phone] 03/09/2024 10:30 AM EDT Infusion Hematology Oncology at [address] [phone] documented as of this encounter Goals Goal [...] 500 Units, Intravenous, ONCE, 1 dose, On Tue09/12/20 at 1015, Routine Given 09/12/2020 10:30 AM EDT 500 Units sodium chloride 0.9 % (flush) flush 20 mL 20 mL, Intravenous, EVERY 1 MIN PRN, Starting on Tue09/12/20 at 0955, Until Tue09/12/20 at 1237, Fur Weigher, Routine Given 09/12/2020 10:30 AM EDT 20 mLs documented in this encounter Care Teams Video Control Operator Relationship Specialty Start Date End Date Jerzy Vidal MD [address] [place] [address] [place] [address] PCP - [facility] Medicine 12/04/18 documented as of this encounter
--- OUTSIDE RECORDS SUMMARY | 2024-02-24 01:20 | XMS_ITS | Encounter Summary ---
Author Organization [facility] Address [facility] [place] [address] Care Team Providers Care Volleyball Player Name Role Phone Jerzy Vidal MD Primary Care Provider [phone] Reason for Visit * Reason Comments Chemotherapy Cycle 6 day 1 * Treatment/Therapy Plan Authorization (Routine) - Closed Specialty Diagnoses / Procedures Referred By Franklyn del rio Referred To Contact Diagnoses Thymic carcinoma Procedures TC GEMCITABINE HCL, 200MG, INJECTION (GEMZAR) Shon Schneider MD [facility] [place] [address] St Hem Onc Infusion [address] [place] [phone] Referral ID Status Reason Start Date Expiration Date Visits Re quested Visits Authorized [id number] Closed 02/28/2020 02/28/2021 18 18 Encounter Details Date Type Department Care Team (Late st Contact Info) Description 06/12/2020 11:30 AM EST Infusion Hematology Oncology at [address] [phone] Thymic carcinoma Social History Tobacco Use Types Packs/Day Years Used Date Smoking Tobacco: Never Smokeless Tobacco: Never Sex and Gender Information Value Date Recorded Sex Assigned at Not on file Gender Identity Not on file Sexual Orientation Not on file documented as of this encounter Progress Notes * Indigo Pirce RN - 06/12/2020 11:30 AM EST INFUSION THERAPY ADMINISTRATION NOTES DIAGNOSIS: Thymic Cancer CYCLE #6: Day 1 REASON FOR VISIT: Gemcitabine infusion SUBJECTIVE: Monica Jaramillo offers no complaints. OBJECTIVE: VSS. Seen by provider. Ready to treat. LAB DATA: WNL & reviewed by provider. IV ACCESS: Mediport Pre administration: Chemotherapy orders independently verified for drug name, route, and dosage per patient's height, weight and BSA by INDIGO PRICE RN and on-site [facility]. REACTIONS (DESCRIPTION, TIME, INTERVENTION AND EFFECTIVENESS) none ASSESSMENT Monica Jaramillo was awake, alert and she tolerated treatment well. PLAN Return to clinic per protocol. documented in this encounter Plan of Treatment Upcoming Encounters Date Type Department Care Team (Late st Contact Info) Description 02/24/2024 9:00 AM EDT Office Visit Hematology/Oncology at [address] [phone] Shon Schneider MD [facility] [place] [place] [address] [address] HEMATOLOGY [place] [address] 02/24/2024 9:30 AM EDT Infusion Hematology Oncology at [address] [phone] 03/02/2024 11:00 AM EDT Office Visit Hematology/Oncology at [address] [phone] Shon Schneider MD [facility] [place] [address] [address] HEMATOLOGY [place] [address] 03/02/2024 12:30 PM EDT Infusion Hematology Oncology at [address] [phone] 03/09/2024 10:00 AM EDT Office Visit Hematology/Oncology at [address] [phone] Shon Schneider MD [facility] [place] [address] Ciara Pitts APRN [address] [place] [address] DR HEMATOLOGY AND ONCOLOGY [place], [place] [address] 03/09/2024 10:30 AM EDT Infusion Hematology Oncology at [address] [phone] documented as of this encounter Goals Goal [...] 10 mg, Intravenous, ONCE, 1 dose, On Ivette 06/12/20 at 1200 Given 06/12/2020 11:50 AM EST 10 mg GEMcitabine 2,400 mg in sodium chloride 0.9% 313.12 mL infusion 2,400 mg, Intravenous, ONCE, 1 dose, On Ivette 06/12/20 at 1300, Administer over 30 Minutes, Warning Vesicant/Irritant Medication Dose Ordered = 2440 mg (1000 mg/m2). Pharmacist rounded dose per procedure. New Bag 06/12/2020 1:01 PM EST 2,400 mg 626.2 mL/hr heparin (pf) (porcine) (100 units/mL) flush 5 mL syringe 500 Units 500 Units, Intravenous, ONCE PRN, Starting on Ivette 06/12/20 at 1133, Until Ivette 06/12/20 at 1709, Line Care, Refer to Intravenous (IV) Procedure: Accessing Implanted Vascular Access Devices (654) procedure and/or Intravenous (IV) Job Aid: Adult Flushing & Catheter Care (3706) job aid for additional information regarding guidelines and administration., Routine Given 06/12/2020 1:36 PM EST 500 Units ondansetron (Zofran) tablet 8 mg 8 mg, Oral, ONCE, 1 dose, On Ivette 06/12/20 at 1200, Administer prior to chemotherapy, Routine Given 06/12/2020 11:50 AM EST 8 mg sodium chloride 0.9 % (flush) flush 5-20 mL 5-20 mL, Intravenous, EVERY 1 MIN PRN, Starting on Ivette 06/12/20 at 1133, Until Ivette 06/12/20 at 1709, Line Care, Flush pertains to all indwelling lines. Flush per protocol found in the job aid using the link provided on this medication record. Refer to Intravenous (IV) Job Aid: Adult Flushing & Catheter Care (6727) job aid for additional information regarding guidelines and administration., Routine Given 06/12/2020 1:36 PM EST 20 mLs documented in this encounter Care Teams Volleyball Player Relationship Specialty Start Date End Date Jerzy Vidal MD [address] [place] [address] [place] [address] PCP - [facility] Medicine 12/04/18 documented as of this encounter
--- OUTSIDE RECORDS SUMMARY | 2024-02-24 01:20 | XMS_ITS | Encounter Summary ---
Author Organization [facility] [place] [address] Care Team Providers Care Zinc Etcher Name Role Phone Jerzy Vidal MD Primary Care Provider [phone] Reason for Visit * - Closed Specialty Diagnoses / Procedures Referred By Contdelphine t Referred To Contact Procedures Film Library- Storage Only CT Chest Abdomen Pelvis Jerzy Vidal MD [address] [place] [id number] Referral ID Status Reason Start Date Expiration Date Visits Re quested Visits Authorized [id number] Closed 10/28/2020 10/28/2021 1 1 Encounter Details Date Type Department Care Team (Late Contact Info) Description 10/28/2020 4:15 PM EDT Ancillary Procedure [place] [address] Jerzy Vidal MD [address] [place] [phone] Social History Tobacco Use Types Packs/Day Years [...] AM EDT Office Visit Hematology/Oncology at [address] [phone] Shon Schneider MD [facility] [place] [address] [address] [place] [address] 02/24/2024 9:30 AM EDT Infusion Hematology Oncology at [address] [phone] 03/02/2024 11:00 AM EDT Office Visit Hematology/Oncology at [address] [phone] Shon Schneider MD [facility] [place] [address] [address] [place] [address] 03/02/2024 12:30 PM EDT Infusion Hematology Oncology at [address] [phone] 03/09/2024 10:00 AM EDT Office Visit Hematology/Oncology at [address] [phone] Shon Schneider MD [facility] [place] [address] [address] HEMATOLOGY AND ONCOLOGY [place], [place] [address] 03/09/2024 10:30 AM EDT Infusion Hematology Oncology at [address] [phone] documented as of this encounter Goals Goal Patient Goal Type Associated Problems Recent Progress Patient-Stated? Author DH Home Medication Compliance and Understanding Patient Facing Action Plan On track( 019 3:22 PM EST) No Ivana Vanegas, [facility] Note: Remain 95% or better adherent to chemotherapy without severe side effects as assessed by days supply and patient reported adverse events at each refill documented as of this encounter Procedures Procedure Name Priority Date/Time Associated Diagnosis Comments FILM LIBRARY STORAGE ONLY CT CHEST ABDOMEN PELVIS Routine 10/28/2020 4:11 PM EDT documented in this encounter Results * Film Library- Storage Only CT Chest Abdomen Pelvis (10/28/2020 4:11 PM EDT) Narrative [facility] - 10/28/2020 4:11 PM EDT This exam is auto-finalizing. It's purpose is for storage only. Jerzy Vidal MD [facility] [place]RARY ORD ERABLES Performing Organization Address City/State/[facility] Co de Phone Number [place], [place] documented in this encounter Visit Diagnoses Not on filedocumented in this encounter Care Teams Zinc Etcher Relationship Specialty Start Date End Date Jerzy Vidal MD [address] [place] [address] [place] [address] PCP - [facility] Medicine 12/04/18 documented as of this encounter
--- OUTSIDE RECORDS SUMMARY | 2024-02-24 01:20 | XMS_ITS | Encounter Summary ---
Author Organization [facility] Address [facility] [place] [address] Care Team Providers Care Fire Extinguisher Inspector Name Role Phone Jerzy Vidal MD Primary Care Provider [phone] Reason for Referral * Consultation (Routine) - Specialty Diagnoses / Procedures Referred By Franklyn del rio Referred To Contact General Surgery Diagnoses Thymic carcinoma Dyspnea, unspecified type Ivory Flynn APRN [address] [place] [address] [place] [address] Harvey Hdez MD [address] [place] [address] [address] Referral ID Status Reason Start Date Expiration Date V isits Requested Visits Authorized [id number] Consult, Test & Treat 08/11/2020 02/07/2021 1 1 Encounter Details Date Type Department Care Team (Late st Contact Info) Description 08/11/2020 Orders Only Hematology/Oncology at [address] [phone] Ivory Flynn [address] [place] [address] Thymic carcinoma; Dyspnea, unspecified type [...] AM EDT Office Visit Hematology/Oncology at [address] [phone] Shon Schneider MD [facility] [place] [address] HEMATOLOGY AND ONCOLOGY [place], [place] [address] 02/24/2024 9:30 AM EDT Infusion Hematology Oncology at [address] [phone] 03/02/2024 11:00 AM EDT Office Visit Hematology/Oncology at [address] [phone] Shon Schneider MD [facility] [place] [address] HEMATOLOGY AND ONCOLOGY [place], [place] [address] 03/02/2024 12:30 PM EDT Infusion Hematology Oncology at [address] [phone] 03/09/2024 10:00 AM EDT Office Visit Hematology/Oncology at [address] [phone] Shon Schneider MD [facility] [place] [address] [address] [place] [address] 03/09/2024 10:30 AM EDT Infusion Hematology Oncology at [address] [phone] Scheduled Referrals Name Type Priority Associated Diagnoses Orde r Schedule Referral to General Surgery Outpatient Referral Routine Thymic carcinoma Dyspnea, unspecified type Ordered: 08/11/2020 documented as of this encounter Goals Goal Patient Goal Type Associated Problems Recent Progress Patient-Stated? Author DH Home Medication Compliance and Understanding Patient Facing Action Plan On track( 019 3:22 PM EST) No Ivana Vanegas, [facility] Note: Remain 95% or better adherent to chemotherapy without severe side effects as assessed by days supply and patient reported adverse events at each refill documented as of this encounter Visit Diagnoses Diagnosis Thymic carcinoma Malignant neoplasm of thymus Dyspnea, unspecified type Thymic carcinoma Malignant neoplasm of thymus documented in this encounter Care Teams Fire Extinguisher Inspector Relationship Specialty Start Date End Date Jerzy Vidal MD [address] [place] [address] [place] [address] PCP - [facility] Medicine 12/04/18 documented as of this encounter
--- OUTSIDE RECORDS SUMMARY | 2024-02-24 01:20 | XMS_ITS | Encounter Summary ---
Author Organization [facility] [place] [address] Care Team Providers Care Millwright Apprentice Name Role Phone Jerzy Vidal MD Primary Care Provider [phone] Encounter Details Date Type Department Care Team (Late st Contact Info) Description 07/11/2020 1:30 PM EST TH Visit (TeleHealth) Hematology/Oncology at [address] [phone] Shon Schneider MD [facility] [place] [address] Ivory Flynn APRN [address] [place] [address] DR HEMATOLOGY ONCOLOGY [place], [place] [id number] Thymic carcinoma Social History Tobacco Use Types Packs/Day Years Used Date Smoking Tobacco: Never Smokeless Tobacco: Never Sex and Gender Information Value Date Recorded Sex Assigned at Not on file Gender Identity Not on file Sexual Orientation Not on file documented as of this encounter Progress Notes * Shon Schneider MD - 07/11/2020 1:30 PM EST Subjective: Patient ID: Monica [...] pleural effusion with compression atelectasis. [facility] to [facility] [...] mediastinal mass 03/29 Path [place] [place] - Mediastinum, mass, biopsy: 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 [facility] - CONSULT SLIDES FROM [facility] [place], [place]: A. MEDIASTINUM, MASS, BIOPSY ([id number]; 03/22/2017): ? 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 ?Immunohistochemistry performed at the outside institution and reviewed at [facility] demonstrates the following staining profile in lesional cells: ? Positive - AE1/AE3, p40, PAX8, CD117, CD5(multifocal), CK7(scattered cells), synaptophysin, chromogranin ? Negative - CK20, TTF-1, GATA3, CD34 ? The immunohistochemical profile supports the above diagnosis. ? Ki67 (MIB-1) proliferation index performed at the referring institution and reviewed at [facility] is focally up to ~30%. NOTE: While diffuse synaptophysin and chromogranin expression is unusual for conventional thymic carcinoma, the overall histomorphology and immunophenotype is most in keeping with THYMIC SQUAMOUS CARCINOMA.?The extent of PAX8 and CD117 staining would be unusual for Nut carcinoma. B. MEDIASTINUM, ANTERIOR, 4.5 CM, ULTRASOUND GUIDED FINED NEEDLE ASPIRATION ([id number]; 03/22/17): The cytologic preparations were not reviewed [...] Second opinion with Dr. Roddy Vega in [place]. They reviewed the pathology and concurred they [...] L. CT c/a/p 11/06/19 ([facility] [place]) - IMPRESSION 1. [...] above. This is a telephone encounter. She is feeling generally well. She has tolerated therapy well. No nausea, no pain. She is eating well. She has had intermittent SOB. This comes on for 2-3 days and is associated with left sided abdominal bloating and gassiness. This then resolves. Her bowels are regular. No diarrhea or stomatitis. No fevers or chills. No chest pain and no pain at all. She has mild LE edema at the end of the day, no change. Soc Hx: , lives in [place], [place] - Never Etoh - rare Works [...] and are negative. Objective: Physical Exam Neurological: She is alert. Labs: WBC/ANC - 1.8/770, Hgb/Hct - 12.1/39.4, Plts - 227,000. BUN/Cr - 13/0.6. Mg - , AST - 42. Lytes and LFTs o/w unremarkable. LDH - (313-618); TFTs (07/03/20): TSH - 1.26, fT4 - 1.28 Assessment and Plan: Ms. Jaramillo is 65 [...] pembrolizumab. I spoke with Dr. Vega at [facility]. There were no clinical trials available [...] mg/day, 2 weeks followed by one w duckwater off, with cycles repeated every three weeks. [...] with Dr. Shon Ramon at [facility] [place]. He agrees that gemcitabine plus capecitabine is very reasonable and that he would consider using lenvatinib in the next line setting. She began therapy with gemcitabine plus capecitabine on 02/29/20 and has received six cycles. She isdue for cycle 7/day 8 gemcitabine today but this will be held due to a low ANC. She will contineu the capecitabine to complete this cycle and we will see her in two weeks with a restaging CT scan prior to that visit. I provided care to the patient today via telephone call. The total time associated with this visit was 20 minutes. documented in this encounter Plan of Treatment Upcoming Encounters Date Type Department Care Team (Late st Contact Info) Description 02/24/2024 9:00 AM EDT Office Visit Hematology/Oncology at [address] [phone] Shon Schneider MD [facility] [place] [address] [place] [address] 02/24/2024 9:30 AM EDT Infusion Hematology Oncology at [address] [phone] 03/02/2024 11:00 AM EDT Office Visit Hematology/Oncology at [address] [phone] Shon Schneider MD [facility] [place] [place] [address] [address] [place] [address] 03/02/2024 12:30 PM EDT Infusion Hematology Oncology at [address] [phone] 03/09/2024 10:00 AM EDT Office Visit Hematology/Oncology at [address] [phone] Shon Schneider MD [facility] [place] [address] [address] HEMATOLOGY AND ONCOLOGY [place], [place] [address] 03/09/2024 10:30 AM EDT Infusion Hematology Oncology at [address] [phone] documented as of this encounter Goals Goal Patient Goal Type Associated Problems Recent Progress Patient-Stated? 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
--- OUTSIDE RECORDS SUMMARY | 2024-02-24 01:20 | XMS_ITS | Encounter Summary ---
Author Organization [facility] [place] [address] Care Team Providers Care Industrial Sales Manager Name Role Phone Jerzy Vidal MD Primary Care Provider [phone] Encounter Details Date Type Department Care Team (Late st Contact Info) Description 08/21/2020 Orders Only Hematology Oncology at [address] [phone] Brionna Andrade RN Thymic carcinoma; Dyspnea, unspecified type Social History Tobacco Use Types Packs/Day Years Used Date Smoking Tobacco: Never Smokeless Tobacco: Never Sex and Gender Information Value Date Recorded Sex Assigned at Not on file Gender Identity Not on file Sexual Orientation Not on file documented as of this encounter Progress Notes * Brionna Andrade RN - 08/21/2020 3:46 PM EST [facility] sent message that flovent standard dosing is usual 2 puffs bid, Ivory Flynn FARM LABOR CONTRACTOR changed prescription to reflect this. Left message at pt's home to advise her of this. She will call with questions or concerns. documented in this encounter Plan of Treatment Upcoming Encounters Date Type Department Care Team (Late st Contact Info) Description 02/24/2024 9:00 AM EDT Office Visit Hematology/Oncology at [address] [phone] Shon Schneider MD [facility] [place] [address] [address] HEMATOLOGY AND ONCOLOGY [place], [place] [address] 02/24/2024 9:30 AM EDT Infusion Hematology Oncology at [address] [phone] 03/02/2024 11:00 AM EDT Office Visit Hematology/Oncology at [address] [phone] Shon Schneider MD [facility] [place] [address] [address] HEMATOLOGY AND ONCOLOGY [place], [place] [address] 03/02/2024 12:30 PM EDT Infusion Hematology Oncology at [address] [phone] 03/09/2024 10:00 AM EDT Office Visit Hematology/Oncology at [address] [phone] 42 Shon Schneider MD [facility] [place] [address] [address] HEMATOLOGY AND ONCOLOGY [place], [place] [address] 03/09/2024 10:30 AM EDT Infusion Hematology Oncology at [address] [phone] documented as of this encounter Goals Goal [...] thymus documented in this encounter Care Teams Industrial Sales Manager Relationship Specialty Start Date End Date Jerzy Vidal MD [address] [place] [address] [place] [address] PCP - [facility] Medicine 12/04/18 documented as of this encounter
--- OUTSIDE RECORDS SUMMARY | 2024-02-24 01:20 | XMS_ITS | Encounter Summary ---
Author Organization [facility] Address [facility] [place] [address] Care Team Providers Care Counterperson Name Role Phone Jerzy Vidal MD Primary Care Provider [phone] Encounter Details Date Type Department Care Team (Late st Contact Info) Description 10/30/2020 10:30 AM EDT Office Visit Hematology/Oncology at [address] [phone] Shon Coates MD [facility] [place] [address] Thymic carcinoma; Hypothyroidism, acquired Social History Tobacco Use Types Packs/Day Years Used Date Smoking Tobacco: Never Smokeless Tobacco: Never Sex and Gender Information Value Date Recorded Sex Assigned at Not on file Gender Identity Not on file Sexual Orientation Not on file documented as of this encounter Last Filed Vital Signs Vital Sign Reading Time Taken Comments Blood Pressure 113/85 10/30/2020 10:32 AM EDT Pulse 70 10/30/2020 10:32 AM EDT Temperature 36.3 ??C (97.3 ??F) 10/30/2020 1 0:32 AM EDT Respiratory Rate 20 10/30/2020 10:3 2 AM EDT Oxygen Saturation 99% 10/30/2020 10: 32 AM EDT Inhaled Oxygen Concentration - - Weight 117.6 kg (259 lb 4.2 oz) 021 10:41 AM EDT Height 175.3 cm (5' 9.02) 10/30/2020 1 0:32 AM EDT Body Mass Index 38.27 10/30/2020 10:32 AM EDT documented in this encounter Progress Notes * Shon Coates MD - 10/30/2020 10:30 AM EDT Subjective: Patient ID: Monica [...] pleural effusion with compression atelectasis. transferred to [facility] for further evaluation and workup and had [...] B. Biopsy of mediastinal mass 03/29 Path ([facility] review) - Mediastinum, mass, biopsy: 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 [facility] - CONSULT SLIDES FROM [facility]; [place], [place]: A. MEDIASTINUM, MASS, BIOPSY ([id number]; 03/22/2017): ? 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 ?Immunohistochemistry performed at the outside institution and reviewed at [facility] demonstrates the following staining profile in lesional cells: ? Positive - AE1/AE3, p40, PAX8, CD117, CD5(multifocal), CK7(scattered cells), synaptophysin, chromogranin ? Negative - CK20, TTF-1, GATA3, CD34 ? The immunohistochemical profile supports the above diagnosis. ? Ki67 (MIB-1) proliferation index performed at the referring institution and reviewed at [facility] is focally up to ~30%. NOTE: While diffuse synaptophysin and chromogranin expression is unusual for conventional thymic carcinoma, the overall histomorphology and immunophenotype is most in keeping with THYMIC SQUAMOUS CARCINOMA.?The extent of PAX8 and CD117 staining would be unusual for Nut carcinoma. B. MEDIASTINUM, ANTERIOR, 4.5 CM, ULTRASOUND GUIDED FINED NEEDLE ASPIRATION ([id number]; 03/22/17): The cytologic preparations were not reviewed [...] Second opinion with Dr. Roddy Vega in [place]. They reviewed the pathology and concurred they [...] therapy with pembrolizumab L. CT c/a/p 11/06/19 ([facility] second read) - IMPRESSION 1. Worsening left-sided [...] of obstruction and stable. Diffusely fibroid uterus. 2. H/o atrial fibrillation 3. HTN 4. [...] clinic today by her Royce. She is feeling well overall. She is tolerating the lenvatinib well. She had a period of 2-3 weeks in which she was more fatigued but that is better now. Every couple of weeks she has some nausea. Overall, she is eating well and her weight is stable. Her bowels are regular. Her knees continue to bother her. The left is worse than the right andit feels at times as though it may give out. She uses a walker and is not interested in evaluation for something like TKA. She denies SOB. Her bowels are regular. No diarrhea or stomatitis. No feversor chills. No chest pain and no pain at all. She has mild LE edema at the end of the day, no change. Soc Hx: , lives in [place], [place] Tob - Never Etoh - rare [...] Psychiatric: Behavior: Behavior normal. Labs: WBC/ANC - 5.01/2720, Hgb/Hct - 15.2/46.7, Plts - 134,000. BUN/Cr - 9/0.8. Mg - 1.4. Lytes and LFTs o/w unremarkable. LDH - 469 (313-618); TFTs (07/24/20): TSH - 1.78. Assessment and Plan: Monica Jaramillo is 65 [...] Vega at [facility]. There were no clinical trials available there. [...] also spoke with Dr. Shon Ramon at [facility] [place]. He agreed that gemcitabine plus capecitabine is [...] on 08/18/20. She has tolerated this well. A restaging CT scan was done on 10/28/20 and shows improvement in the pleural disease and pleural effusions. She and Royce are very pleased about this, as am I. She will continue the lenavtinib at the same dose, 24 mg per day and we will see her in 4 weeks. Her TFTs have not been checked since 08/03 I believe. We will try to add those to yesterday's labs. She and Royce received their second covid vaccine shot on 09/26/20 Addendum: TSH - 42.8, FT4 - 0.79. She is currently taking synthroid, 25 mcg per day. Will have her increase to 50 mcg/day. We will recheck in 4 weeks. documented in this encounter Miscellaneous Notes * Addendum Note - Shon Coates MD - 10/30/2020 10:30 AM EDTAddended by: SHON COATES on: 10/31/2020 11:00 AM Modules accepted: Orders documented in this encounter Plan of Treatment Upcoming Encounters Date Type Department Care Team (Late st Contact Info) Description 02/24/2024 9:00 AM EDT Office Visit Hematology/Oncology at [address] [phone] Shon Coates MD [facility] [place] [address] HEMATOLOGY [place] [address] 02/24/2024 9:30 AM EDT Infusion Hematology Oncology at [address] [phone] 03/02/2024 11:00 AM EDT Office Visit Hematology/Oncology at [address] [phone] Shon Coates MD [facility] [place] [address] [address] HEMATOLOGY [place] [address] 03/02/2024 12:30 PM EDT Infusion Hematology Oncology at [address] [phone] 03/09/2024 10:00 AM EDT Office Visit Hematology/Oncology at [address] [phone] Shon Coates MD [facility] [place] [address] Ciara Pitts APRN [address] [place] [address] DR HEMATOLOGY [place] [address] 03/09/2024 10:30 AM EDT Infusion Hematology Oncology at [address] [phone] documented as of this encounter Goals Goal [...] thymus documented in this encounter Care Teams Counterperson Relationship Specialty Start Date End Date Jerzy Vidal MD [address] [place] [address] [place] [address] PCP - [facility] Medicine 12/04/18 documented as of this encounter
--- OUTSIDE RECORDS SUMMARY | 2024-02-24 01:20 | XMS_ITS | Encounter Summary ---
Author Organization [facility] Address [facility] [place] [address] Care Team Providers Care Customer Service Technician Name Role Phone Jerzy Vidal MD Primary Care Provider [phone] Encounter Details Date Type Department Care Team (Late st Contact Info) Description 08/29/2020 10:00 AM EDT Office Visit Hematology/Oncology at [address] [phone] Shon Schneider MD [facility] [place] [address] Ivory Flynn [employer] [address] [place] [address] DR HEMATOLOGY ONCOLOGY [place], [place] [id number] Thymic carcinoma; Dyspnea, unspecified type Social History Tobacco Use Types Packs/Day Years Used Date Smoking Tobacco: Never Smokeless Tobacco: Never Sex and Gender Information Value Date Recorded Sex Assigned at Not on file Gender Identity Not on file Sexual Orientation Not on file documented as of this encounter Last Filed Vital Signs Vital Sign Reading Time Taken Comments Blood Pressure 128/87 08/29/2020 10:08 AM EDT Pulse 57 08/29/2020 10:08 AM EDT Temperature 36.4 ??C (97.5 ??F) 08/29/2020 1 0:08 AM EDT Respiratory Rate 18 08/29/2020 10:0 8 AM EDT Oxygen Saturation 98% 08/29/2020 10: 08 AM EDT Inhaled Oxygen Concentration - - Weight 120.4 kg (265 lb 6.4 oz) 021 10:08 AM EDT Height 175.3 cm (5' 9) 08/29/2020 10:0 8 AM EDT Body Mass Index 39.19 08/29/2020 10:08 AM EDT documented in this encounter Progress Notes * Ivory Flynn, EUGENIO - 08/29/2020 10:00 AM EDT Subjective: Patient ID: Monica [...] atelectasis. ?? transferred to [facility] for further evaluation and workup [...] Biopsy of mediastinal mass 03/29 Path ([facility] review) - Mediastinum, mass, biopsy: 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 ?? [facility] - CONSULT SL[facility]ES FROM ; [place], [place]: A. MEDIASTINUM, MASS, BIOPSY ([id number]; 03/22/2017): ? 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 ?Immunohistochemistry performed at the outside institution and reviewed at [facility] demonstrates the following staining profile in lesional cells: ? Positive - AE1/AE3, p40, PAX8, CD117, CD5(multifocal), CK7(scattered cells), synaptophysin, chromogranin ? Negative - CK20, TTF-1, GATA3, CD34 ? The immunohistochemical profile supports the above diagnosis. ? Ki67 (MIB-1) proliferation index performed at the referring institution and reviewed at [facility] is focally up to ~30%. NOTE: While diffuse synaptophysin and chromogranin expression is unusual for conventional thymic carcinoma, the overall histomorphology and immunophenotype is most in keeping with THYMIC SQUAMOUS CARCINOMA.?The extent of PAX8 and CD117 staining would be unusual for Nut carcinoma. B. MEDIASTINUM, ANTERIOR, 4.5 CM, ULTRASOUND GUIDED FINED NEEDLE ASPIRATION ([id number]; 03/22/17): The cytologic preparations were not reviewed [...] Second opinion with Dr. Roddy Vega in [place]. ??They reviewed the pathology and concurred they [...] with pembrolizumab L. CT c/a/p 11/06/19 ([facility] second read) - IMPRESSION 1. ??Worsening left-sided [...] 60-65%). ?? 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 ?? Fam Hx: No h/o cancer tion of her breathing. She has a lot of energy, but gets easily short of breath when walking and recovers easily when sitting. She is able to talk at length without difficulty. She denies dizziness or chest pain. She does have a cough that is productive of sometimes light greenish sputum. Monica reports feeling wheezy intermittently. Some days she needs to use the Albuterol inhaler every 4 hours. She thinks a steroid inhaler might help. INTERVAL HPI 08/29/20 Monica Jaramillo is a 64 yo female with stage IV thymic carcinoma diagnosed in 03/29. (Refer to extensive history summarized above.) Monica returns to the [facility] onc[facility] clinic today accompanied by her Royce for clinic visit for evaluation of Lenvatinib therapy. Monica's Chest CT of 07/24/20 showed thoracic progression of her metastatic thymic cancer. Monica was seen by surgery at [facility] 08/19/20 and had a thoracentisis of a left pleural effusion. She reports about 600cc of fluid was removed. She further notes she had a significant loss of fluid systemically for several days afterward. She reports voiding frequently, and today has lost 13 pounds and fe els much less bloated. She feels her breathing is quite good. She says the shortness of breath she had with exertion is gone. She will notify the surgeon if sob begins increasing again. She is eating well. No nausea. No GI issues. No heartburn or abdominal pain. No fever, chills or signs of infection. No hand foot syndrome signs. Monica does note she twisted her left knee somehow. She is able to walk on it. We talked about getting a knee brace for added support. Allergies Allergen Reactions ??? Carboplatin ??? Penicillins [...] Thought content normal. Judgment: Judgment normal. BP 128/87 (Patient Position: Sitting) Pulse 57 Temp 36.4 ??C (97.5 ??F) (Skin) Resp 18 Ht 175.3 cm (5' 9) Wt 120.4 kg (265 lb 6.4 oz) SpO2 98% BMI 39.19 kg/m?? LABS 08/28/20 WBC 7.5; ANC 3.46; H/H [...] history summarized above.) Monica returns to the [facility] oncology clinic accompanied by her Royce for evaluation of daily Levatinib 24mg po QD which she started one week ago. Monica is breathing better s/p thoracentisis. She has tolerated a week of Lenvatinib without toxicity. Plan:. Continue Levatinib - 24 mg po QD. Compazine as needed. Stand alone labs 09/04 or 09/05 to recheck CBC and bilirubin. RTC 2 weeks with labs or call sooner for questions or concerns. documented in this encounter Plan of Treatment Upcoming Encounters Date Type Department Care Team (Late st Contact Info) Description 02/24/2024 9:00 AM EDT Office Visit Hematology/Oncology at [address] [phone] Shon Schneider MD [facility] [place] [address] Ciara Pitts APRN [address] [place] [address] DR HEMATOLOGY [place] [address] 02/24/2024 9:30 AM EDT Infusion Hematology Oncology at [address] [phone] 03/02/2024 11:00 AM EDT Office Visit Hematology/Oncology at [address] [phone] Shon Schneider MD [facility] [place] [address] [address] HEMATOLOGY AND ONCOLOGY [place], [place] [phone] 03/02/2024 12:30 PM EDT Infusion Hematology Oncology at [address] [phone] 03/09/2024 10:00 AM EDT Office Visit Hematology/Oncology at [address] [phone] Shon Schneider MD [facility] [place] [address] [address] HEMATOLOGY [place] [address] 03/09/2024 10:30 AM EDT Infusion Hematology Oncology at [address] [phone] documented as of this encounter Goals Goal [...] documented in this encounter Care Teams Customer Service Technician Relationship Specialty Start Date End Date Jerzy Vidal MD [address] [place] [address] [place] [address] PCP - [facility] Medicine 12/04/18 documented as of this encounter
--- OUTSIDE RECORDS SUMMARY | 2024-02-24 01:20 | XMS_ITS | Encounter Summary ---
Author Organization [facility] [place] [address] Care Team Providers Care Patient Support Associate Name Role Phone Jerzy Vidal MD Primary Care Provider [phone] Reason for Visit * Reason Onset Date Comments Abnormal Labs 07/10/2020 Critical ANC Encounter Details Date Type Department Care Team (Late Contact Info) Description 07/10/2020 Telephone Hematology Oncology at [address] [phone] Eden Vieira RN Abnormal Labs (Critical ANC) Social History Tobacco Use Types Packs/Day Years Used Date Smoking Tobacco: Never Smokeless Tobacco: Never Sex and Gender Information Value Date Recorded Sex Assigned at Not on file Gender Identity Not on file Sexual Orientation Not on file documented as of this encounter Miscellaneous Notes * Telephone Encounter - Eden Vieira RN - 07/10/2020 2:59 PM EST Rachana from [facility] lab called with Critical ANC of 0.77. She is being seen by Dr. Schneider tomorrow in clinic. documented in this encounter Plan of Treatment Upcoming Encounters Date Type Department Care Team (Late Contact Info) Description 02/24/2024 9:00 AM EDT Office Visit Hematology/Oncology at [address] [phone] Shon Schneider MD [facility] [place] [address] HEMATOLOGY AND ONCOLOGY [place], [place] [address] 02/24/2024 9:30 AM EDT Infusion Hematology Oncology at [address] [phone] 03/02/2024 11:00 AM EDT Office Visit Hematology/Oncology at [address] [phone] Shon Schneider MD [facility] [place] [address] HEMATOLOGY AND ONCOLOGY [place], [place] [address] 03/02/2024 12:30 PM EDT Infusion Hematology Oncology at [address] [phone] 03/09/2024 10:00 AM EDT Office Visit Hematology/Oncology at [address] [phone] Shon Schneider MD [facility] [place] [address] [address] HEMATOLOGY AND ONCOLOGY [place], [place] [address] 03/09/2024 10:30 AM EDT Infusion Hematology Oncology at [address] [phone] documented as of this encounter Goals Goal [...] on filedocumented in this encounter Care Teams Patient Support Associate Relationship Specialty Start Date End Date Jerzy Vidal MD [address] [place] [address] [place] [address] PCP - [facility] Medicine 12/04/18 documented as of this encounter
--- OUTSIDE RECORDS SUMMARY | 2024-02-24 01:20 | XMS_ITS | Encounter Summary ---
Author Organization Counts Include [facility] Address [facility] [place] [address] Care Team Providers Care Ramp Attendant Name Role Phone Jerzy Vidal MD Primary Care Provider [phone] Reason for Visit * Reason Comments Medication Refill Encounter Details Date Type Department Care Team (Late st Contact Info) Description 10/29/2020 Refill Hematology/Oncology at [address] [phone] Nadeen Srivastava RN Thymic carcinoma; [...] AM EDT Office Visit Hematology/Oncology at [address] [phone] Shon Schneider MD [facility] [place] [address] Ciara Pitts APRN [address] [place] [address] DR HEMATOLOGY AND ONCOLOGY [place], [place] [phone] 02/24/2024 9:30 AM EDT Infusion Hematology Oncology at [address] [phone] 03/02/2024 11:00 AM EDT Office Visit Hematology/Oncology at [address] [phone] Shon Schneider MD [facility] [place] [address] HEMATOLOGY AND ONCOLOGY [place], [place] [address] 03/02/2024 12:30 PM EDT Infusion Hematology Oncology at [address] [phone] 03/09/2024 10:00 AM EDT Office Visit Hematology/Oncology at [address] [phone] Shon Schneider MD [facility] [place] [address] [address] HEMATOLOGY AND ONCOLOGY [place], [place] [phone] 03/09/2024 10:30 AM EDT Infusion Hematology Oncology at [address] [phone] documented as of this encounter Goals Goal [...] thymus documented in this encounter Care Teams Ramp Attendant Relationship Specialty Start Date End Date Jerzy Vidal MD [address] [place] [address] [place] [address] PCP - [facility] Medicine 12/04/18 documented as of this encounter
--- OUTSIDE RECORDS SUMMARY | 2024-02-24 01:20 | XMS_ITS | Encounter Summary ---
Author Organization [facility] Address [facility] [place] [address] Care Team Providers Care Electro Tech Name Role Phone Jerzy Vidal MD Primary Care Provider [phone] Reason for Visit * - Closed Specialty Diagnoses / Procedures Referred By Contac t Referred To Contact Procedures Film Library- Storage Only CT Chest Jerzy Vidal MD [address] [place] [id number] Referral ID Status Reason Start Date Expiration Date Visits Re quested Visits Authorized [id number] Closed 08/14/2020 08/14/2021 1 1 Encounter Details Date Type Department Care Team (Late Contact Info) Description 08/14/2020 2:40 PM EST Ancillary Procedure [place] [phone] Jerzy Vidal MD [address] [place] [id number] Social History Tobacco Use Types Packs/Day Years [...] AM EDT Office Visit Hematology/Oncology at [address] [phone] Shon Schneider MD [facility] [place] [address] HEMATOLOGY AND ONCOLOGY [place], [place] [address] 02/24/2024 9:30 AM EDT Infusion Hematology Oncology at [address] [phone] 03/02/2024 11:00 AM EDT Office Visit Hematology/Oncology at [address] [phone] Shon Schneider MD [facility] [place] [address] HEMATOLOGY AND ONCOLOGY [place], [place] [address] 03/02/2024 12:30 PM EDT Infusion Hematology Oncology at [address] [phone] 03/09/2024 10:00 AM EDT Office Visit Hematology/Oncology at [address] [phone] Shon Schneider MD [facility] [place] [address] HEMATOLOGY AND ONCOLOGY [place], [place] [address] 03/09/2024 10:30 AM EDT Infusion Hematology Oncology at [address] [phone] documented as of this encounter Goals Goal Patient Goal Type Associated Problems Recent Progress Patient-Stated? Author DH Home Medication Compliance and Understanding Patient Facing Action Plan On track( 019 3:22 PM EST) No vIana Vanegas, [facility] Note: Remain 95% or better adherent to chemotherapy without severe side effects as assessed by days supply and patient reported adverse events at each refill documented as of this encounter Procedures Procedure Name Priority Date/Time Associated Diagnosis Comments FILM LIBRARY STORAGE ONLY CT CHEST Routine 08/14/2020 2:37 PM EST documented in this encounter Results * Film Library- Storage Only CT Chest (08/14/2020 2:37 PM EST) Narrative [facility] - 08/14/2020 2:37 PM EST This exam is auto-finalizing. It's purpose is for storage only. Jerzy Vidal MD G FILM LIBRARY ORD ERABLES Performing Organization Address City/State/[facility] Co de Phone Number [place], [place] documented in this encounter Visit Diagnoses Not on filedocumented in this encounter Care Teams Electro Tech Relationship Specialty Start Date End Date Jerzy Vidal MD [address] [place] [address] [place] [address] PCP - [facility] Medicine 12/04/18 documented as of this encounter
--- OUTSIDE RECORDS SUMMARY | 2024-02-24 01:20 | XMS_ITS | Encounter Summary ---
Author Organization [facility] [place] [address] Care Team Providers Care Gear Hobber Name Role Phone Jerzy Vidal MD Primary Care Provider [phone] Reason for Visit * Reason Onset Date Comments New Medication Request 07/28/2020 jens b Encounter Details Date Type Department Care Team (Late st Contact Info) Description 07/28/2020 Telephone Hematology/Oncology at [address] [phone] Brionna Andrade RN New Medication Request (levantinib) Social History Tobacco Use Types Packs/Day Years Used Date Smoking Tobacco: Never Smokeless Tobacco: Never Sex and Gender Information Value Date Recorded Sex Assigned at Not on file Gender Identity Not on file Sexual Orientation Not on file documented as of this encounter Miscellaneous Notes * Telephone Encounter - Brionna Andrade RN - 07/28/2020 3:25 PM EST Oral Chemotherapy Check Note 07/28/2020 Monica Jaramillo, 1955 Prescriptions for oral chemotherapy were reviewed as follows: Oral Chemotherapy Order lenvatinib: Order details: ?? Dose: 24 mg ?? Route: oral ?? Quantity to be dispensed #: 30 doases ?? Number of refills: 5 ?? Instructions: Take 24 mg by mouth daily ?? Cycle number and length: ongoing ?? Start date: After she calls clinic when she receives medication Plan of care compared to information in the medical record, including note from provider on 07/25/20(date). The prescription was found to be complete and accurate. It was printed, reviewed and signed by provider and manually faxed to [facility] pharmacy [facility]) [phone] ?? Fax) [phone] . Oral Chemotherapy Assessment Note 07/28/2020 Monica Jaramillo, 1955 Assessment of Monica Jaramillo???s living situation reveals that she lives with a caregiver. Name and contact information for caregiver: . The patient will be responsible for her medication administration. Medications reviewed, including prescription and non-prescription medications. Monica Jaramillo is not able to pay high copays will need assistance if it is high. The patient reports that he/she: ?? is able to swallow pills. ?? is able to open medication bottles/packages without problems. ?? is not experiencing any symptoms that will affect the ability to keep down medications (no nausea, vomiting, mucositis, or difficulty swallowing). ?? is NOT willing to fill prescriptions with Specialty Pharmacy. What pharmacy would the patient like to have the medication dispensed from? [facility]) [phone] ?? Fax) [phone] The patient verifies: ?? ability to read and understand the drug label instructions. ?? understanding of treatment plan with oral chemotherapy. ?? understanding that medication will be dispensed from [facility] pharmacy. This medication will be delivered to the home (instructed to call nurse if he/she does not hear from the pharmacy regarding delivery). ?? that she will need labs drawn on with next provider visit. documented in this encounter Plan of Treatment Upcoming Encounters Date Type Department Care Team (Late st Contact Info) Description 02/24/2024 9:00 AM EDT Office Visit Hematology/Oncology at [address] [phone] Shon Schneider MD [facility] [place] [address] Ciara Pitts APRN [address] [place] [address] DR HEMATOLOGY AND ONCOLOGY [place], [place] [id number] 02/24/2024 9:30 AM EDT Infusion Hematology Oncology at [address] [phone] 03/02/2024 11:00 AM EDT Office Visit Hematology/Oncology at [address] [phone] Shon Schneider MD [facility] [address] HEMATOLOGY AND ONCOLOGY [place], [place] [address] 03/02/2024 12:30 PM EDT Infusion Hematology Oncology at [address] [phone] 03/09/2024 10:00 AM EDT Office Visit Hematology/Oncology at [address] [phone] Shon Schneider MD [facility] [place] [address] [address] HEMATOLOGY [place] [address] 03/09/2024 10:30 AM EDT Infusion Hematology Oncology at [address] [phone] documented as of this encounter Goals Goal Patient Goal Type Associated Problems Recent Progress Patient-Stated? Author DH Home Medication Compliance and Understanding Patient Facing Action Plan On track( 019 3:22 PM EST) Ivana Ashraf, [facility] Note: Remain 95% or better adherent to chemotherapy without severe side effects as assessed by days supply and patient reported adverse events at each refill documented as of this encounter Visit Diagnoses Not on filedocumented in this encounter Care Teams Gear Hobber Relationship Specialty Start Date End Date Jerzy Vidal MD [address] [place] [address] [place] [address] PCP - [facility] Medicine 12/04/18 documented as of this encounter
--- OUTSIDE RECORDS SUMMARY | 2024-02-24 01:20 | XMS_ITS | Encounter Summary ---
Author Organization [facility] Address [facility] [place] [address] Care Team Providers Care Signs Sales Representative Name Role Phone Jerzy Vidal MD Primary Care Provider [phone] Encounter Details Date Type Department Care Team (Late st Contact Info) Description 07/25/2020 10:30 AM EST Office Visit Hematology/Oncology at [address] [phone] Shon Schneider MD [facility] [place] [address] Ivory Flynn, OPERATIONAL RISK CONSULTANT [address] [place] [address] DR HEMATOLOGY ONCOLOGY [place], [place] [id number] Thymic carcinoma Social History Tobacco Use Types Packs/Day Years Used Date Smoking Tobacco: Never Smokeless Tobacco: Never Sex and Gender Information Value Date Recorded Sex Assigned at Not on file Gender Identity Not on file Sexual Orientation Not on file documented as of this encounter Last Filed Vital Signs Vital Sign Reading Time Taken Comments Blood Pressure 114/77 07/25/2020 10:29 AM EST Pulse 73 07/25/2020 10:29 AM EST Temperature 36.4 ??C (97.5 ??F) 07/25/2020 10:[address] Respiratory Rate 20 07/25/2020 10:29 AM EST Oxygen Saturation 95% 07/25/2020 10:29 AM EST Inhaled Oxygen Concentration - - Weight 126.1 kg (278 lb) 07/25/2020 10:29 AM EST Height 176 cm (5' 9.29) 07/25/2020 10:29 AM EST Body Mass Index 40.71 07/25/2020 10:29 AM EST documented in this encounter Progress Notes * Shon Schneider MD - 07/25/2020 10:30 AM EST Subjective: Patient ID: Monica [...] review - CONSULT SLIDES FROM [facility]; [place], [place]: A. MEDIASTINUM, MASS, BIOPSY ([id number]; 03/22/2017): ? 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 ?Immunohistochemistry performed at the outside institution and reviewed at [facility] demonstrates the following staining profile in lesional cells: ? Positive - AE1/AE3, p40, PAX8, CD117, CD5(multifocal), CK7(scattered cells), synaptophysin, chromogranin ? Negative - CK20, TTF-1, GATA3, CD34 ? The immunohistochemical profile supports the above diagnosis. ? Ki67 (MIB-1) proliferation index performed at the referring institution and reviewed at [facility] is focally up to ~30%. NOTE: While diffuse synaptophysin and chromogranin expression is unusual for conventional thymic carcinoma, the overall histomorphology and immunophenotype is most in keeping with THYMIC SQUAMOUS CARCINOMA.?The extent of PAX8 and CD117 staining would be unusual for Nut carcinoma. B. MEDIASTINUM, ANTERIOR, 4.5 CM, ULTRASOUND GUIDED FINED NEEDLE ASPIRATION ([id number]; 03/22/17): The cytologic preparations were not reviewed [...] Second opinion with Dr. Roddy Vega in [place]. They reviewed the pathology and concurred they [...] nodes. Partially image ventral hernia sac noted. 2. H/o atrial fibrillation 3. HTN 4. [...] her Royce. She is anxious about the CT result. She feltmore SOB this morning and thinks it may have been related to anxiety. She is feeling generally well. She has [...] no change. Soc Hx: , lives in [place], [place] Tob - Never Etoh - rare [...] is normal. Vitals reviewed. Labs: WBC/ANC - 6.01/2924, Hgb/Hct - 12.2/39.6, Plts - 235,000. BUN/Cr - 10/0.6. Mg - 1.6, AST - 37.Lytes and LFTs o/w unremarkable. LDH - 469 [...] pembrolizumab. I spoke with Dr. Vega at [facility]. There were no clinical trials [...] mg/day, 2 weeks followed by one w [place] off, with cycles repeated every three weeks. [...] also spoke with Dr. Shon Ramon at [facility] [place]. He agrees that gemcitabine plus capecitabine is very reasonable and that he would consider using lenvatinib in the next line setting. She began therapy with gemcitabine plus capecitabine on 02/29/20 and has received seven [address] done on 07/24 shows an increase in the left pleural effusion, a small amount of fluid on the righ which is new and new tiny right lung nodules. The main mass is about the same but I am concerned that the other findings are indicative of disease progression. We therefore plan to stop the gemcitabine/capecitabine. We talked about options, including lenvatinib and pemetrexed. We will do a prior authorization for the lenvatinib. If that is denied again, will consider pemetrexed. In addition, I will try to talk with Dr. Beckman again to see if he has other thoughts. We also discussed sending path for [facility] testing to see if this gives us other treatment options. documented in this encounter Plan of Treatment Upcoming Encounters Date Type Department Care Team (Late st Contact Info) Description 02/24/2024 9:00 AM EDT Office Visit Hematology/Oncology at [address] [phone] Shon Schneider MD [facility] [place] [address] HEMATOLOGY AND ONCOLOGY [place], [place] [address] 02/24/2024 9:30 AM EDT Infusion Hematology Oncology at [address] [phone] 03/02/2024 11:00 AM EDT Office Visit Hematology/Oncology at [address] [phone] Shon Schneider MD [facility] [place] [address] HEMATOLOGY AND ONCOLOGY [place], [place] [address] 03/02/2024 12:30 PM EDT Infusion Hematology Oncology at [address] [phone] 03/09/2024 10:00 AM EDT Office Visit Hematology/Oncology at [address] [phone] Shon Schneider MD [facility] [place] [address] HEMATOLOGY AND ONCOLOGY [place], [place] [address] 03/09/2024 10:30 AM EDT Infusion Hematology Oncology at [address] [phone] documented as of this encounter Goals Goal Patient Goal Type Associated Problems Recent Progress Patient-Stated? 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
--- OUTSIDE RECORDS SUMMARY | 2024-02-24 01:20 | XMS_ITS | Encounter Summary ---
Author Organization [facility] [place] [address] Care Team Providers Care Cash Posting Representative Name Role Phone Jerzy Vidal MD Primary Care Provider [phone] Reason for Visit * Reason Comments Other Mediport flush Encounter Details Date Type Department Care Team (Late st Contact Info) Description 10/30/2020 10:30 AM EDT Infusion Hematology Oncology at [address] [phone] Thymic carcinoma Social History Tobacco Use Types Packs/Day Years Used Date Smoking Tobacco: Never Smokeless Tobacco: Never Sex and Gender Information Value Date Recorded Sex Assigned at Not on file Gender Identity Not on file Sexual Orientation Not on file documented as of this encounter Progress Notes * Marguerite Calvo RN - 10/30/2020 10:30 AM EDT INFUSION THERAPY ADMINISTRATION NOTES DIAGNOSIS: [...] AM EDT Office Visit Hematology/Oncology at [address] [phone] Shon Schneider MD [facility] [place] [address] [address] [place] [address] 02/24/2024 9:30 AM EDT Infusion Hematology Oncology at [address] [phone] 03/02/2024 11:00 AM EDT Office Visit Hematology/Oncology at [address] [phone] Shon Schneider MD [facility] [place] [address] [address] HEMATOLOGY AND ONCOLOGY [place], [place] [address] 03/02/2024 12:30 PM EDT Infusion Hematology Oncology at [address] [phone] 03/09/2024 10:00 AM EDT Office Visit Hematology/Oncology at [address] [phone] Shon Schneider MD [facility] [place] [address] Ciara Pitts [address] [place] [address] 03/09/2024 10:30 AM EDT Infusion Hematology Oncology at [address] [phone] documented as of this encounter Goals Goal [...] Procedure Name Priority Date/Time Associated Diagnosis Comments ORDS - PROVIDER CARE SCAN 12/08/2020 12:00 AM EDT documented in this encounter Results * SCAN DOC: ORDS - PROVIDER CARE (12/08/2020 12:00 AM EDT) Unknown MEDIA MGR SCAN EXT O RDR/RSLT documented [...] 500 Units, Intravenous, ONCE, 1 dose, On Ivette 10/30/20 at 0815, Routine Given 10/30/2020 11:19 AM EDT 500 Units sodium chloride 0.9 % (flush) flush 20 mL 20 mL, Intravenous, EVERY 1 MIN PRN, Starting on Ivette 10/30/20 at 0758, Until Ivette 10/30/20 at 1337, Tree Planter, Routine Given 10/30/2020 11:19 AM EDT 20 mLs documented in this encounter Care Teams Cash Posting Representative Relationship Specialty Start Date End Date Jerzy Vidal MD [address] [place] [address] [place] [address] PCP - [facility] Medicine 12/04/18 documented as of this encounter
--- OUTSIDE RECORDS SUMMARY | 2024-02-24 01:20 | XMS_ITS | Encounter Summary ---
Author Organization [facility] [place] [address] Care Team Providers Care Variety Saw Operator Name Role Phone Jerzy Vidal MD Primary Care Provider [phone] Reason for Visit * Reason Onset Date Comments Other 07/04/2020 capecitabine ref ill Encounter Details Date Type Department Care Team (Late st Contact Info) Description 07/04/2020 Telephone Hematology/Oncology at [address] [phone] Lashawn Skelton, RN Other (capecitabine refill) Social History Tobacco Use Types Packs/Day Years Used Date Smoking Tobacco: Never Smokeless Tobacco: Never Sex and Gender Information Value Date Recorded Sex Assigned at Not on file Gender Identity Not on file Sexual Orientation Not on file documented as of this encounter Miscellaneous Notes * Telephone Encounter - Lashawn Skelton RN - 07/04/2020 2:59 PM EST Oral Chemotherapy Rx Refill Note (No Rx Change) 07/04/2020 Monica Jaramillo, 1955 Prescription for oral chemotherapy (capcitabine) was written by provider without any changes and faxed to [facility] to be filled. Notice of this refill has been given during office visit to patient. The patient understands that this medication will be delivered to the home (instructed to call nurse if he/she does not hear from the pharmacy regarding delivery). Faxed to [facility] at [phone], fax confirmed. documented in this encounter Plan of Treatment Upcoming Encounters Date Type Department Care Team (Late st Contact Info) Description 02/24/2024 9:00 AM EDT Office Visit Hematology/Oncology at [address] [phone] Shon Schneider MD [facility] [address] [address] HEMATOLOGY AND ONCOLOGY [place], [place] [address] 02/24/2024 9:30 AM EDT Infusion Hematology Oncology at [address] [phone] 03/02/2024 11:00 AM EDT Office Visit Hematology/Oncology at [address] [phone] Shon Schneider MD [facility] [place] [address] HEMATOLOGY AND ONCOLOGY [place], [place] [address] 03/02/2024 12:30 PM EDT Infusion Hematology Oncology at [address] [phone] 03/09/2024 10:00 AM EDT Office Visit Hematology/Oncology at [address] [phone] Shon Schneider MD [facility] [address] Ciara Pitts [address] HEMATOLOGY AND ONCOLOGY [place], [place] [address] 03/09/2024 10:30 AM EDT Infusion Hematology Oncology at [address] [phone] documented as of this encounter Goals Goal Patient Goal Type Associated Problems Recent Progress Patient-Stated? Author DH Home Medication Compliance and Understanding Patient Facing Action Plan On track( 019 3:22 PM EST) No Ivana Vanegas, [facility] Note: Remain 95% or better adherent to chemotherapy without severe side effects as assessed by days supply and patient reported adverse events at each refill documented as of this encounter Visit Diagnoses Not on filedocumented in this encounter Care Teams Variety Saw Operator Relationship Specialty Start Date End Date Jerzy Vidal MD [address] [place] [address] [place] [address] PCP - [facility] Medicine 12/04/18 documented as of this encounter
--- OUTSIDE RECORDS SUMMARY | 2024-02-24 01:21 | XMS_ITS | Encounter Summary ---
Author Organization [facility] Address [facility] [place] [address] Care Team Providers Care Real Estate Assistant Name Role Phone Jerzy Vidal MD Primary Care Provider [phone] Reason for Visit * Reason Comments Chemotherapy Cycle 3 Day 8 * Treatment/Therapy Plan Authorization (Routine) - Closed Specialty Diagnoses / Procedures Referred By Franklyn del rio Referred To Contact Diagnoses Thymic carcinoma Procedures TC GEMCITABINE HCL, 200MG, INJECTION (GEMZAR) Shon Schneider MD [facility] [place] [address] St Hem Onc Infusion [address] [place] [phone] Referral ID Status Reason Start Date Expiration Date Visits Re quested Visits Authorized [id number] Closed 02/28/2020 02/28/2021 18 18 Encounter Details Date Type Department Care Team (Late st Contact Info) Description 04/18/2020 11:00 AM EST Infusion Hematology Oncology at [address] [phone] Thymic carcinoma Social History Tobacco Use Types Packs/Day Years Used Date Smoking Tobacco: Never Smokeless Tobacco: Never Sex and Gender Information Value Date Recorded Sex Assigned at Not on file Gender Identity Not on file Sexual Orientation Not on file documented as of this encounter Progress Notes * Indigo Price RN - 04/18/2020 11:00 AM EST INFUSION THERAPY ADMINISTRATION NOTES DIAGNOSIS: Thymic Cancer CYCLE #2: Day 8 REASON FOR VISIT: Gemcitabine infusion [...] AM EDT Office Visit Hematology/Oncology at [address] [phone] Shon Schneider MD [facility] [place] [address] [place] [address] 02/24/2024 9:30 AM EDT Infusion Hematology Oncology at [address] [phone] 03/02/2024 11:00 AM EDT Office Visit Hematology/Oncology at [address] [phone] Shon Schneider MD [facility] [place] [address] [address] [place] [address] 03/02/2024 12:30 PM EDT Infusion Hematology Oncology at [address] [phone] 03/09/2024 10:00 AM EDT Office Visit Hematology/Oncology at [address] [phone] Shon Schneider MD [facility] [place] [address] Ciara Pitts APRN [address] [place] [address] DR HEMATOLOGY AND ONCOLOGY [place], [place] [address] 03/09/2024 10:30 AM EDT Infusion Hematology Oncology at [address] [phone] documented as of this encounter Goals Goal [...] 10 mg, Intravenous, ONCE, 1 dose, On Tue04/18/20 at 1145 Given 04/18/2020 11:54 AM EST 10 mg GEMcitabine 2,400 mg in sodium chloride 0.9% 313.12 mL chemo infusion 2,400 mg, Intravenous, ONCE, 1 dose, On Tue04/18/20 at 1245, Administer over 30 Minutes, Warning Vesicant/Irritant Medication Dose Ordered = 2440 mg (1000 mg/m2). Pharmacist rounded dose per procedure. New Bag 04/18/2020 12:42 PM EST 2,400 mg 626.2 mL/hr heparin, porcine 100 unit/mL flush 500 Units 500 Units, Intravenous, ONCE PRN, Starting on Tue04/18/20 at 1125, Until Tue04/18/20 at 1634, Line Care, Refer to Intravenous (IV) Procedure: Accessing Implanted Vascular Access Devices (654) procedure and/or Intravenous (IV) Job Aid: Adult Flushing & Catheter Care (7602) job aid for additional information regarding guidelines and administration., Routine Given 04/18/2020 1:22 PM EST 500 Units ondansetron (Zofran) tablet 8 mg 8 mg, Oral, ONCE, 1 dose, On Tue04/18/20 at 1145, Administer prior to chemotherapy, Routine Given 04/18/2020 11:54 AM EST 8 mg sodium chloride 0.9 % (flush) flush 5-20 mL 5-20 mL, Intravenous, EVERY 1 MIN PRN, Starting on Tue04/18/20 at 1125, Until Tue04/18/20 at 1634, Line Care, Flush pertains to all indwelling lines. Flush per protocol found in the job aid using the link provided on this medication record. Refer to Intravenous (IV) Job Aid: Adult Flushing & Catheter Care (0246) job aid for additional information regarding guidelines and administration., Routine Given 04/18/2020 1:21 PM EST 20 mLs documented in this encounter Care Teams Real Estate Assistant Relationship Specialty Start Date End Date Jerzy Vidal MD [address] [place] [address] [place] [address] PCP - [facility] Medicine 12/04/18 documented as of this encounter
--- OUTSIDE RECORDS SUMMARY | 2024-02-24 01:21 | XMS_ITS | Encounter Summary ---
Author Organization [facility] Address [facility] [place] [address] Care Team Providers Care Acetylene Torch Operator Name Role Phone Jerzy Vidal MD Primary Care Provider [phone] Encounter Details Date Type Department Care Team (Late st Contact Info) Description 05/23/2020 9:00 AM EST Office Visit Hematology/Oncology at [address] [phone] Shon Schneider MD [facility] [place] [address] Ivory Flynn, EUGENIO [address] [place] [address] DR HEMATOLOGY ONCOLOGY [place], [place] [id number] Thymic carcinoma; Hypomagnesemia Social History Tobacco Use Types Packs/Day Years Used Date Smoking Tobacco: Never Smokeless Tobacco: Never Sex and Gender Information Value Date Recorded Sex Assigned at Not on file Gender Identity Not on file Sexual Orientation Not on file documented as of this encounter Last Filed Vital Signs Vital Sign Reading Time Taken Comments Blood Pressure 115/77 05/23/2020 9:03 AM EST Pulse 72 05/23/2020 9:03 AM EST Temperature 36.6 ??C (97.8 ??F) 05/23/2020 9:03 AM ES T Respiratory Rate 20 05/23/2020 9:03 AM EST Oxygen Saturation 98% 05/23/2020 9:03 AM EST Inhaled Oxygen Concentration - - Weight 124.5 kg (274 lb 6.4 oz) 05/23/2020 9:03 AM EST Height 176 cm (5' 9.29) 05/23/2020 9:03 AM EST Body Mass Index 40.18 05/23/2020 9:03 AM EST documented in this encounter Progress Notes * Carterkelley Ivory Henderson, JOURNEYMAN POWER PLANT OPERATOR - 05/23/2020 9:00 AM EST Subjective: Patient ID: Monica [...] effusion with compression atelectasis. ?? transferred to [facility] for further evaluation and [...] of mediastinal mass 03/29 Path ([facility] [place]) - Mediastinum, mass, biopsy: 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 ?? [facility] - CONSULT SLIDES FROM [facility]; [place], [place]: A. MEDIASTINUM, MASS, BIOPSY ([id number]; 03/22/2017): ? 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 ?Immunohistochemistry performed at the outside institution and reviewed at [facility] demonstrates the following staining profile in lesional cells: ? Positive - AE1/AE3, p40, PAX8, CD117, CD5(multifocal), CK7(scattered cells), synaptophysin, chromogranin ? Negative - CK20, TTF-1, GATA3, CD34 ? The immunohistochemical profile supports the above diagnosis. ? Ki67 (MIB-1) proliferation index performed at the referring institution and reviewed at [facility] is focally up to ~30%. NOTE: While diffuse synaptophysin and chromogranin expression is unusual for conventional thymic carcinoma, the overall histomorphology and immunophenotype is most in keeping with THYMIC SQUAMOUS CARCINOMA.?The extent of PAX8 and CD117 staining would be unusual for Nut carcinoma. B. MEDIASTINUM, ANTERIOR, 4.5 CM, ULTRASOUND GUIDED FINED NEEDLE ASPIRATION ([id number]; 03/22/17): The cytologic preparations were not reviewed [...] Second opinion with Dr. Roddy Vega in [place]. ??They reviewed the pathology and concurred they [...] pembrolizumab L. CT c/a/p 11/06/19 ([facility] second read) - IMPRESSION 1. ??Worsening left-sided [...] 60-65%). ? 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 ?? Fam Hx: No h/o cancer INTERVAL HPI 04/18/20 Monica Jaramillo is a 64 yo female with stage IV thymic carcinoma diagnosed in 03/29. (Refer to extensive history summarized above.) Monica returns to the [facility] oncology clinic with judith Crane today for evaluation and C3D8 treatment with Gemcitabine and oral Capecitabine 1000 mg bid days 1-14. Monica is upset today at being informed new COVID guidelines going forth will mean her Royce may not be present during visits. We reassured Monica that when discussions include scan results or serious decision-making we may be able to make an exception. Monica reports doing very well following C3D1 treatment with Gemzar/Capecitabine. She is starting her second week of Capecitabine for this cycle. Monica denies nausea, vomiting, mouth sores, diarrhea or constipation. She does report increased gas and bloating since starting this regimen which occasionally makes her feel short of breath. Her appetite has been good and she is drinking adequate fluids. She has not needed to use any home antiemetics. She denies any pain or burning on hands or feet. She denies fever, chills, new cough or chest pain. INTERVAL HPI 05/23/20 Monica Jaramillo is a 64 yo female with stage IV thymic carcinoma diagnosed in 03/29. (Refer to extensive history summarized above.) Monica returns to the [facility] oncology clinic alone today for evaluation and C5D1 treatment with Gemcitabine and oral Capecitabine 1000 mg bid days 1-14. Monica says she is feeling well. She denies any new chemotherapy- related side effects from the lastcycle. Her energy level is good and she says generally she is on the go all day. She takes a nap every now and then. She has intermittent shortness of breath mostly with activity that is not new. She has a pulse oximeter at home and she says her O2 sats are usually 96-99% r/a. No new cough. No chest pain or fevers. Her appetite is good, she has no nausea. She is moving her bowels regularly. No diarrhea or constipation issues. Periodic abdominal gassiness/bloating is unchanged from previous cycles. She denies difficulty with urination. She has not had numbness or tingling. She denies pain, burning or redness in her hands and feet. She says overall she feels like she is doing really well. Allergies Allergen Reactions ??? Carboplatin ??? Penicillins Hives ??? Pollen Extracts Other (See Comments) rhinorrhea Current Medications ??? CAPEcitabine (XELODA) chemo tablet ??? ALBUTEROL INHL ??? aMILoride (Midamor) 5 mg Tablet ??? [...] pain and palpitations. Gastrointestinal: Positive for abdominal pain. Negative for constipation and diarrhea. Positive for increased gassiness/bloating Genitourinary: Negative. Musculoskeletal: Negative. Skin: Negative for [...] No wheezing or rales. Comments: Breath sounds equal bilaterally Abdominal: General: Bowel sounds are normal. Palpations: [...] normal. Thought Content: Thought content normal. BP 115/77 (Patient Position: Sitting) Pulse 72 Temp 36.6 ??C (97.8 ??F) (Temporal) Resp 20 Ht 176 cm (5' 9.29) Wt 124.5 kg (274 lb 6.4 oz) SpO2 98% BMI 40.18 kg/m?? LABS 05/22/20 WBC 5.7; ANC 3.32; H/H 10.6/36.6; PLT 254; BUN 10; CREAT 0.60; NA+ 137; K+ 4.1; ALP 72; ALT 21; AST35; LDH 472; MAG 1.6. LABS 05/07/20 WBC 3.6; ANC 2.52; H/H 10.3/ 33.3; PLT 296; NA+ 139; K+ 4.5; BUN 11; CREAT 0.60; ALP 53; ALT 28: AST 34. Assessment and Plan: Assessment: Monica Jaramillo is a 64 yo female with stage IV thymic carcinoma diagnosed in 03/29. (Refer to extensive history summarized above.) Monica returns to the [facility] oncology clinic alone for evaluation and C5D1 treatment with Gemcitabine and oral Capecitabine 1000 mg bid days 1-14. Monica is tolerating the current Gemzar/Capecitabine regimen without much toxicity. She is having minor GI toxicity and does not seem to have any residual immunotherapy toxicities.. I reviewed labs with Monica, which meet treatment parameters. Plan: Proceed with C5D1 Gemzar/oral Capecitabine treatment today. RTC 1 week for C5D8. RTC early June for C6. documented in this encounter Plan of Treatment Upcoming Encounters Date Type Department Care Team (Late st Contact Info) Description 02/24/2024 9:00 AM EDT Office Visit Hematology/Oncology at [address] [phone] Shon Schneider MD [facility] [place] [address] Ciara Pitts [address] [place] [address] 02/24/2024 9:30 AM EDT Infusion Hematology Oncology at [address] [phone] 03/02/2024 11:00 AM EDT Office Visit Hematology/Oncology at [address] [phone] Shon Schneider MD [facility] [place] [address] Ciara Pitts, [address] HEMATOLOGY AND ONCOLOGY [place], [place] [id number] 03/02/2024 12:30 PM EDT Infusion Hematology Oncology at [address] [phone] 03/09/2024 10:00 AM EDT Office Visit Hematology/Oncology at [address] [phone] Shon Schneider MD [facility] [place] [address] Ci[address] Pitts [address] HEMATOLOGY AND ONCOLOGY [place], [place] [address] 03/09/2024 10:30 AM EDT Infusion Hematology Oncology at [address] [phone] documented as of this encounter Goals Goal Patient Goal Type Associated Problems Recent Progress Patient-Stated? Author DH Home Medication Compliance and Understanding Patient Facing Action Plan On track( 019 3:22 PM EST) No Ivana Vanegas, [facility] Note: Remain 95% or better adherent to chemotherapy without severe side effects as assessed by days supply and patient reported adverse events at each refill documented as of this encounter Visit Diagnoses Diagnosis Thymic carcinoma Malignant neoplasm of thymus Hypomagnesemia Disorders of magnesium metabolism Thymic carcinoma Malignant neoplasm of thymus documented in this encounter Care Teams Acetylene Torch Operator Relationship Specialty Start Date End Date Jerzy Vidal MD [address] [place] [address] [place] [address] PCP - [facility] Medicine 12/04/18 documented as of this encounter
--- OUTSIDE RECORDS SUMMARY | 2024-02-24 01:21 | XMS_ITS | Encounter Summary ---
Author Organization [facility] [place] [address] Care Team Providers Care Usability Specialist Name Role Phone Jerzy Vidal MD Primary Care Provider [phone] Reason for Visit * Reason Onset Date Comments Other 02/27/2020 medication refil l Encounter Details Date Type Department Care Team (Late Contact Info) Description 02/27/2020 Telephone Hematology/Oncology at [address] [phone] Boaz Amos RN Other (medication refill ) Social History Tobacco Use Types Packs/Day Years Used Date Smoking Tobacco: Never Smokeless Tobacco: Never Sex and Gender Information Value Date Recorded Sex Assigned at Not on file Gender Identity Not on file Sexual Orientation Not on file documented as of this encounter Miscellaneous Notes * Telephone Encounter - Boaz Amos RN - 02/27/2020 9:25 AM EDT Per [facility] Pharm Pt needs to refill next cycle of Capecitabine at [facility]. Last office note, demos and copy of script faxed to [facility] at [phone], fax confirmed. documented in this encounter Plan of Treatment Upcoming Encounters Date Type Department Care Team (Late Contact Info) Description 02/24/2024 9:00 AM EDT Office Visit Hematology/Oncology at [address] [phone] Shon Schneider MD [facility] [place] [address] [address] HEMATOLOGY AND ONCOLOGY [place], [place] [address] [phone] 02/24/2024 9:30 AM EDT Infusion Hematology Oncology at [address] [phone] 03/02/2024 11:00 AM EDT Office Visit Hematology/Oncology at [address] [phone] Shon Schneider MD [facility] [place] [address] HEMATOLOGY AND ONCOLOGY [place], [place] [address] 03/02/2024 12:30 PM EDT Infusion Hematology Oncology at [address] [phone] 03/09/2024 10:00 AM EDT Office Visit Hematology/Oncology at [address] [phone] Shon Schneider MD [facility] [place] [address] Ciara Pitts [address] HEMATOLOGY AND ONCOLOGY [place], [place] [phone] 03/09/2024 10:30 AM EDT Infusion Hematology Oncology at [address] [phone] documented as of this encounter Goals Goal Patient Goal Type Associated Problems Recent Progress Patient-Stated? Author DH Home Medication Compliance and Understanding Patient Facing Action Plan On track( 019 3:22 PM EST) No Ivana Vanegas, [facility] Note: Remain 95% or better adherent to chemotherapy without severe side effects as assessed by days supply and patient reported adverse events at each refill documented as of this encounter Visit Diagnoses Not on filedocumented in this encounter Care Teams Usability Specialist Relationship Specialty Start Date End Date Jerzy Vidal MD [address] [place] [address] [place] [address] PCP - [facility] Medicine 12/04/18 documented as of this encounter
--- OUTSIDE RECORDS SUMMARY | 2024-02-24 01:21 | XMS_ITS | Encounter Summary ---
Author Organization [facility] Address [facility] [place] [address] Care Team Providers Care Botanical Technical Officer Name Role Phone Jerzy Vidal MD Primary Care Provider Encounter Details Date Type Department Care Team (Late st Contact Info) Description 02/29/2020 12:30 PM EDT Office Visit Hematology/Oncology at [address] [phone] Shon Coates MD [facility] [place] [address] Ivory Flynn, FUR POINTER [address] [place] [address] DR HEMATOLOGY ONCOLOGY [place], [place] [phone] Thymic carcinoma; Dyspnea, unspecified type Social History Tobacco Use Types Packs/Day Years Used Date Smoking Tobacco: Never Smokeless Tobacco: Never Sex and Gender Information Value Date Recorded Sex Assigned at Not on file Gender Identity Not on file Sexual Orientation Not on file documented as of this encounter Last Filed Vital Signs Vital Sign Reading Time Taken Comments Blood Pressure 139/90 02/29/2020 12:32 PM EDT Pulse 80 02/29/2020 12:32 PM EDT Temperature 36.1 ??C (97 ??F) 02/29/2020 12:32 PM EDT Respiratory Rate 20 02/29/2020 12:32 PM EDT Oxygen Saturation 97% 02/29/2020 12:32 PM EDT Inhaled Oxygen Concentration - - Weight 123.4 kg (272 lb) 02/29/2020 12:32 PM EDT Height 176 cm (5' 9.29) 02/29/2020 12:32 PM EDT Body Mass Index 39.83 02/29/2020 12:32 PM EDT documented in this encounter Progress Notes * Shon Coates MD - 02/29/2020 1:00 PM EDT Subjective: Patient ID: Monica [...] pleural effusion with compression atelectasis. transferred to [facility] for further evaluation and workup and [...] CONSULT SLIDES FROM [facility] [place], [place]: A. MEDIASTINUM, MASS, BIOPSY ([id number]; 03/22/2017): ? 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 ?Immunohistochemistry performed at the outside institution and reviewed at [facility] demonstrates the following staining profile in lesional cells: ? Positive - AE1/AE3, p40, PAX8, CD117, CD5(multifocal), CK7(scattered cells), synaptophysin, chromogranin ? Negative - CK20, TTF-1, GATA3, CD34 ? The immunohistochemical profile supports the above diagnosis. ? Ki67 (MIB-1) proliferation index performed at the referring institution and reviewed at [facility] is focally up to ~30%. NOTE: While diffuse synaptophysin and chromogranin expression is unusual for conventional thymic carcinoma, the overall histomorphology and immunophenotype is most in keeping with THYMIC SQUAMOUS CARCINOMA.?The extent of PAX8 and CD117 staining would be unusual for Nut carcinoma. B. MEDIASTINUM, ANTERIOR, 4.5 CM, ULTRASOUND GUIDED FINED NEEDLE ASPIRATION ([id number]; 03/22/17): The cytologic preparations were not reviewed [...] Second opinion with Dr. Roddy Vega in [place]. They reviewed the pathology and concurred they [...] lesion 6.Stable subcentimeter non calcified pulmonary nodules. 2. H/o atrial fibrillation 3. HTN 4. Echocardiogram 06/20/18 ([facility]) - Summary: 1. Preserved LV [...] is accompanied to clinic today by her stewart Crane. She is here today to start therapy with withgemcitabine plus capecitabine. She is a bit more dyspneic. She is comfortable at rest and with someactivity like doing dishes etc. More activity gets her out of breath. She has a non-productive cough. She is using an albuterol inhaler which seems to help to some degree. She is otherwise feeling well. She is eating well and her weight is stable. Her bowels are regular, no diarrhea. No chest pain and no pain at all..No LE edema. Soc Hx: , lives in [place], [place] Tob - Never Etoh - rare [...] has no wheezes. She has no rales. Decreased BS lower 1/2 on left Abdominal: She exhibits no distension. Musculoskeletal: General: [...] is normal. Vitals reviewed. Labs: WBC/ANC - 6.07/4689, Hgb/Hct - 12.6/40.4, Plts - 192,000. BUN/Cr - 10/0.7. Mg - 1.2. Lytes andLFTs o/w unremarkable. LDH - 432 (313-618) TSH - 1.46, free T4 - 1.31 (WNL) Assessment and Plan: Ms. Jaramillo is a [...] mg/day, 2 weeks followed by one w ramona off, with cycles repeated every three weeks. [...] We decided to continue the pembrolizumab. A repeat CT was A CT was repeated on 02/06/20. This [...] also spoke with Dr. Shon Ramon at [facility]. He agrees that gemcitabine plus capecitabine is very reasonable and that he would consider using lenvatinib in the next line setting. We reviewed the schedule of therapy - Gemcitabine is given day 1/day 8. Capecitabine is taken orally bid for 14 days followed by 7 days off with cycles repeated every 3 weeks. We decided to give the capecitabine at a dose of 1000 mg bid. We plan to start therapy today. She decided against IV magnesium today and is going to be more consistent with PO magnesium. Of concern in is the increased SOB. She wonders if this may be related to pneumonitis from the pembrolizumab. I suspect this is related to the underlying disease. We will start treatment today and get a CT chest before her visit next week. documented in this encounter Miscellaneous Notes * Addendum Note - Sohn Coates MD - 02/29/2020 12:30 PM EDTAddended by: SHON COATES on: 02/29/2020 01:52 PM Modules accepted: Orders documented in this encounter Plan of Treatment Upcoming Encounters Date Type Department Care Team (Late st Contact Info) Description 02/24/2024 9:00 AM EDT Office Visit Hematology/Oncology at [address] [phone] Shon Coates MD [facility] [place] [address] Ciara Pitts APRN [address] [place] [address] [place] [address] 02/24/2024 9:30 AM EDT Infusion Hematology Oncology at [address] [phone] 03/02/2024 11:00 AM EDT Office Visit Hematology/Oncology at [address] [phone] Shon Coates MD [facility] [place] [address] [address] HEMATOLOGY AND ONCOLOGY [place], [place] [phone] 03/02/2024 12:30 PM EDT Infusion Hematology Oncology at [address] [phone] 03/09/2024 10:00 AM EDT Office Visit Hematology/Oncology at [address] [phone] Shon Coates MD [facility] [place] [address] [address] HEMATOLOGY AND ONCOLOGY [place], [place] [phone] 03/09/2024 10:30 AM EDT Infusion Hematology Oncology at [address] [phone] documented as of this encounter Goals Goal [...] thymus documented in this encounter Care Teams Botanical Technical Officer Relationship Specialty Start Date End Date Jerzy Vidal MD [address] [place] [address] [place] [address] PCP - [facility] Medicine 12/04/18 documented as of this encounter
--- OUTSIDE RECORDS SUMMARY | 2024-02-24 01:21 | XMS_ITS | Encounter Summary ---
Author Organization [facility] Address [facility] [place] [address] Care Team Providers Care Diabetes Territory Manager Name Role Phone Jerzy Vidal MD Primary Care Provider [phone] Reason for Visit * Reason Comments Chemotherapy * Treatment/Therapy Plan Authorization (Routine) - Closed Specialty Diagnoses / Procedures Referred By Franklyn del rio Referred To Contact Diagnoses Thymic carcinoma Procedures TC GEMCITABINE HCL, 200MG, INJECTION (GEMZAR) Shon Schneider MD [facility] [place] [address] St Hem Onc Infusion [address] [place] [phone] Referral ID Status Reason Start Date Expiration Date Visits Re quested Visits Authorized [id number] Closed 02/28/2020 02/28/2021 18 18 Encounter Details Date Type Department Care Team (Late st Contact Info) Description 05/02/2020 12:00 PM EST Infusion Hematology Oncology at [address] [phone] Thymic carcinoma Social History Tobacco Use Types Packs/Day Years Used Date Smoking Tobacco: Never Smokeless Tobacco: Never Sex and Gender Information Value Date Recorded Sex Assigned at Not on file Gender Identity Not on file Sexual Orientation Not on file documented as of this encounter Progress Notes * Aguilar Licea RN - 05/02/2020 12:00 PM EST INFUSION THERAPY ADMINISTRATION NOTES DIAGNOSIS: GI Biliary CA CYCLE #: Day 1 Cycle 4 REASON FOR VISIT: chemotherapy SUBJECTIVE Monica offers no complaints. OBJECTIVE LAB DATA: WBC 5.4; PLT 245; ANC 3.58; BUN 11; CREAT 0.70 IV ACCESS: Implanted port Pre administration: Chemotherapy orders independently verified for drug name, route, and dosage per patient's height, weight and BSA by Shawnee CORTES; Marguerite Calvo RN & Pharm Stanislaw. REACTIONS (DESCRIPTION, TIME, INTERVENTION AND EFFECTIVENESS) none ASSESSMENT Monica was awake, alert and tolerated treatment well. PLAN Return to clinic per routine. documented in this encounter Plan of Treatment Upcoming Encounters Date Type Department Care Team (Late st Contact Info) Description 02/24/2024 9:00 AM EDT Office Visit Hematology/Oncology at [address] [phone] Shon Schneider MD [facility] [place] [address] [address] HEMATOLOGY AND ONCOLOGY [place], [place] [address] 02/24/2024 9:30 AM EDT Infusion Hematology Oncology at [address] [phone] 03/02/2024 11:00 AM EDT Office Visit Hematology/Oncology at [address] [phone] Shon Schneider MD [facility] [place] [address] Ci[address] Pitts [address] HEMATOLOGY [place] [address] 03/02/2024 12:30 PM EDT Infusion Hematology Oncology at [address] [phone] 03/09/2024 10:00 AM EDT Office Visit Hematology/Oncology at [address] [phone] Shon Schneider MD [facility] [place] [address] Ciara Pitts APRN [address] [place] [address] DR HEMATOLOGY AND ONCOLOGY [place], [place] [address] 03/09/2024 10:30 AM EDT Infusion Hematology Oncology at [address] [phone] documented as of this encounter Goals Goal [...] 10 mg, Intravenous, ONCE, 1 dose, On Tue05/02/20 at 1215 Given 05/02/2020 12:07 PM EST 10 mg GEMcitabine 2,400 mg in sodium chloride 0.9% 313.12 mL chemo infusion 2,400 mg, Intravenous, ONCE, 1 dose, On Tue05/02/20 at 1315, Administer over 30 Minutes, Warning Vesicant/Irritant Medication Dose Ordered = 2440 mg (1000 mg/m2). Pharmacist rounded dose per procedure. New Bag 05/02/2020 12:42 PM EST 2,400 mg 626.2 mL/hr heparin, porcine 100 unit/mL flush 500 Units 500 Units, Intravenous, ONCE PRN, Starting on Tue05/02/20 at 1148, Until Tue05/02/20 at 1532, Line Care, Refer to Intravenous (IV) Procedure: Accessing Implanted Vascular Access Devices (654) procedure and/or Intravenous (IV) Job Aid: Adult Flushing & Catheter Care (3312) job aid for additional information regarding guidelines and administration., Routine Given 05/02/2020 1:17 PM EST 500 Units ondansetron (Zofran) tablet 8 mg 8 mg, Oral, ONCE, 1 dose, On Tue05/02/20 at 1215, Administer prior to chemotherapy, Routine Given 05/02/2020 12:06 PM EST 8 mg sodium chloride 0.9 % (flush) flush 5-20 mL 5-20 mL, Intravenous, EVERY 1 MIN PRN, Starting on Tue05/02/20 at 1148, Until Tue05/02/20 at 1532, Line Care, Flush pertains to all indwelling lines. Flush per protocol found in the job aid using the link provided on this medication record. Refer to Intravenous (IV) Job Aid: Adult Flushing & Catheter Care (7079) job aid for additional information regarding guidelines and administration., Routine Given 05/02/2020 1:17 PM EST 20 mLs documented in this encounter Care Teams Diabetes Territory Manager Relationship Specialty Start Date End Date Jerzy Vidal MD [address] [place] [address] [place] [address] PCP - [facility] Medicine 12/04/18 documented as of this encounter
--- OUTSIDE RECORDS SUMMARY | 2024-02-24 01:21 | XMS_ITS | Encounter Summary ---
Author Organization [facility] Address [facility] [place] [address] Care Team Providers Care Forepart Laster Name Role Phone Jerzy Vidal MD Primary Care Provider [phone] Encounter Details Date Type Department Care Team (Late st Contact Info) Description 03/21/2020 10:30 AM EDT Office Visit Hematology/Oncology at [address] [phone] Shon Schneider MD [facility] [place] [address] Ivory Flynn, TRANSCRIBING MACHINE MECHANIC [address] [place] [address] DR HEMATOLOGY ONCOLOGY [place], [place] [phone] Thymic carcinoma Social History Tobacco Use Types Packs/Day Years Used Date Smoking Tobacco: Never Smokeless Tobacco: Never Sex and Gender Information Value Date Recorded Sex Assigned at Not on file Gender Identity Not on file Sexual Orientation Not on file documented as of this encounter Last Filed Vital Signs Vital Sign Reading Time Taken Comments Blood Pressure 112/87 03/21/2020 10:31 AM EDT Pulse 77 03/21/2020 10:31 AM EDT Temperature 36.6 ??C (97.8 ??F) 03/21/2020 10:31 AM E DT Respiratory Rate 16 03/21/2020 10:31 AM EDT Oxygen Saturation 96% 03/21/2020 10:31 AM EDT Inhaled Oxygen Concentration - - Weight 126.1 kg (278 lb) 03/21/2020 10:31 AM EDT Height 176 cm (5' 9.29) 03/21/2020 10:31 AM EDT Body Mass Index 40.71 03/21/2020 10:31 AM EDT documented in this encounter Progress Notes * Shon Schneider MD - 03/21/2020 10:30 AM EDT Subjective: Patient ID: Monica [...] pleural effusion with compression atelectasis. transferred to [facility] for further evaluation and workup [...] - CONSULT SLIDES FROM [facility]; [place], [place]: A. MEDIASTINUM, MASS, BIOPSY ([id number]; 03/22/2017): ? 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 ?Immunohistochemistry performed at the outside institution and reviewed at [facility] demonstrates the following staining profile in lesional cells: ? Positive - AE1/AE3, p40, PAX8, CD117, CD5(multifocal), CK7(scattered cells), synaptophysin, chromogranin ? Negative - CK20, TTF-1, GATA3, CD34 ? The immunohistochemical profile supports the above diagnosis. ? Ki67 (MIB-1) proliferation index performed at the referring institution and reviewed at [facility] is focally up to ~30%. NOTE: While diffuse synaptophysin and chromogranin expression is unusual for conventional thymic carcinoma, the overall histomorphology and immunophenotype is most in keeping with THYMIC SQUAMOUS CARCINOMA.?The extent of PAX8 and CD117 staining would be unusual for Nut carcinoma. B. MEDIASTINUM, ANTERIOR, 4.5 CM, ULTRASOUND GUIDED FINED NEEDLE ASPIRATION ([id number]; 03/22/17): The cytologic preparations were not reviewed [...] Second opinion with Dr. Roddy Vega in [place]. They reviewed the pathology and concurred they [...] for 14 days then 7 days off) 2. H/o atrial fibrillation 3. HTN 4. Echocardiogram 06/20/18 ([facility]) - Summary: 1. Preserved LV [...] today by her stewart Crane. She is feeling generally well. The SOB that she had is better. She still feels a little SOB on occasion. The cough is completely gone. No chest pain or pain elsewhere. She tolerated chemotherapy very well. No nausea or vomiting. No stomatitis or diarrhea. No fevers or chills. Her bowels are regular. No chest pain and no pain at all. The LE edema is better. Soc Hx: , lives in [place], [place] Tob - Never Etoh - rare [...] is normal. Vitals reviewed. Labs: WBC/ANC - 4.01/2840, Hgb/Hct - 11.6/36.9, Plts - 313,000. BUN/Cr - 12/0.6. Mg - 1.6. Lytes andLFTs o/w unremarkable. LDH - 376 (313-618); TSH - 1.3 Assessment and Plan: Ms. Jaramillo is a [...] pembrolizumab. I spoke with Dr. Vega at [facility]. There were no clinical trials available [...] mg/day, 2 weeks followed by one w tanacross off, with cycles repeated every three weeks. [...] also spoke with Dr. Shon Ramon at [facility] [place]. He agrees that gemcitabine plus capecitabine is very reasonable and that he would consider using lenvatinib in the next line setting. She began therapy with gemcitabine plus capecitabine on 02/29/20 and has received one cycle. She tolerated that well and is feeling very well. She will receive cycle 2/day 1 gemcitabine today and we will see her next week. We will plan to repeat the CT after cycle 3. documented in this encounter Plan of Treatment Upcoming Encounters Date Type Department Care Team (Late st Contact Info) Description 02/24/2024 9:00 AM EDT Office Visit Hematology/Oncology at [address] [phone] Shon Schneider MD [facility] [place] [address] [address] HEMATOLOGY [place] [address] 02/24/2024 9:30 AM EDT Infusion Hematology Oncology at [address] [phone] 03/02/2024 11:00 AM EDT Office Visit Hematology/Oncology at [address] [phone] Shon Schneider MD [facility] [place] [address] HEMATOLOGY AND ONCOLOGY [place], [place] [phone] 03/02/2024 12:30 PM EDT Infusion Hematology Oncology at [address] [phone] 03/09/2024 10:00 AM EDT Office Visit Hematology/Oncology at [address] [phone] Shon Schneider MD [facility] [place] [address] Ciara Pitts APRN [address] [place] [address] DR HEMATOLOGY [place] [address] 03/09/2024 10:30 AM EDT Infusion Hematology Oncology at [address] [phone] documented as of this encounter [...] thymus documented in this encounter Care Teams Forepart Laster Relationship Specialty Start Date End Date Jerzy Vidal MD [address] [place] [address] [place] [address] PCP - [facility] Medicine 12/04/18 documented as of this encounter
--- OUTSIDE RECORDS SUMMARY | 2024-02-24 01:21 | XMS_ITS | Encounter Summary ---
Author Organization [facility] [place] [address] Care Team Providers Care Real Estate Investor Name Role Phone Jerzy Vidal MD Primary Care Provider [phone] Encounter Details Date Type Department Care Team (Late st Contact Info) Description 04/30/2020 7:35 PM EST Ancillary Procedure [place] [phone] Jerzy Vidal MD [address] [place] [phone] Social History Tobacco Use Types Packs/Day Years [...] AM EDT Office Visit Hematology/Oncology at [address] [phone] Shon Schneider MD [facility] [place] [place] [address] Ciara Pitts APRN [address] [place] [address] DR HEMATOLOGY AND ONCOLOGY [place], [place] [address] 02/24/2024 9:30 AM EDT Infusion Hematology Oncology at [address] [phone] 03/02/2024 11:00 AM EDT Office Visit Hematology/Oncology at [address] [phone] Shon Schneider MD [facility] [place] [address] HEMATOLOGY AND ONCOLOGY [place], [place] [phone] 03/02/2024 12:30 PM EDT Infusion Hematology Oncology at [address] [phone] 03/09/2024 10:00 AM EDT Office Visit Hematology/Oncology at [address] [phone] Shon Schneider MD [facility] [place] [address] [address] HEMATOLOGY AND ONCOLOGY [place], [place] [address] 03/09/2024 10:30 AM EDT Infusion Hematology Oncology at [address] [phone] documented as of this encounter Goals Goal [...] FILM LIBRARY STORAGE ONLY CT CHEST Routine 04/30/2020 7:32 PM EST documented in this encounter Results * Film Library- Storage Only CT Chest (04/30/2020 7:32 PM EST) Narrative HELDER - 04/30/2020 7:32 PM EST This exam is auto-finalizing. It's purpose is for storage only. Jerzy Vidal MD G FILM LIBRARY ORD ERABLES Performing Organization Address City/State/[facility] Co de Phone Number [place], [place] documented in this encounter Visit Diagnoses Not on filedocumented in this encounter Care Teams Real Estate Investor Relationship Specialty Start Date End Date Jerzy Vidal MD [address] [place] [address] [place] [address] PCP - [facility] [place] Medicine 12/04/18 documented as of this encounter
--- OUTSIDE RECORDS SUMMARY | 2024-02-24 01:21 | XMS_ITS | Encounter Summary ---
Author Organization [facility] Address [facility] [place] [address] Care Team Providers Care Poultry Farm Supervisor Name Role Phone Jerzy Vidal MD Primary Care Provider [phone] Reason for Visit * Reason Comments Chemotherapy Gemzar, Cycle 2, Day 8 * Treatment/Therapy Plan Authorization (Routine) - Closed Specialty Diagnoses / Procedures Referred By Franklyn del rio Referred To Contact Diagnoses Thymic carcinoma Procedures TC GEMCITABINE HCL, 200MG, INJECTION (GEMZAR) Shon Schneider MD [facility] [place] [address] Stj Hem Onc Infusion [address] [place] [phone] Referral ID Status Reason Start Date Expiration Date Visits Re quested Visits Authorized [id number] Closed 02/28/2020 02/28/2021 18 18 Encounter Details Date Type Department Care Team (Late st Contact Info) Description 03/28/2020 11:30 AM EDT Infusion Hematology Oncology at [address] [phone] Thymic carcinoma Social History Tobacco Use Types Packs/Day Years Used Date Smoking Tobacco: Never Smokeless Tobacco: Never Sex and Gender Information Value Date Recorded Sex Assigned at Not on file Gender Identity Not on file Sexual Orientation Not on file documented as of this encounter Progress Notes * Kush Calvo RN - 03/28/2020 11:30 AM EDT INFUSION THERAPY ADMINISTRATION NOTES DIAGNOSIS: Thymic Cancer CYCLE #2: Day 8 REASON FOR VISIT: Gemcitabine infusion SUBJECTIVE: Monica Jaramillo offers no complaints. OBJECTIVE: VSS. Seen by provider. Ready to treat. LAB DATA: WNL & reviewed by provider. IV ACCESS: Mediport Pre administration: Chemotherapy orders independently verified for drug name, route, and dosage per patient's height, weight and BSA by KUSH CALVO RN and on-site [facility]. REACTIONS (DESCRIPTION, TIME, INTERVENTION AND EFFECTIVENESS) none ASSESSMENT Monica Jaramillo was awake, alert and she tolerated treatment well. PLAN Return to clinic per protocol. documented in this encounter Plan of Treatment Upcoming Encounters Date Type Department Care Team (Late st Contact Info) Description 02/24/2024 9:00 AM EDT Office Visit Hematology/Oncology at [address] [phone] Shon Schneider MD [facility] [place] [address] [place] [address] 02/24/2024 9:30 AM EDT Infusion Hematology Oncology at [address] [phone] 03/02/2024 11:00 AM EDT Office Visit Hematology/Oncology at [address] [phone] Shon Schneider MD [facility] [place] [address] [place] [address] 03/02/2024 12:30 PM EDT Infusion Hematology Oncology at [address] [phone] 03/09/2024 10:00 AM EDT Office Visit Hematology/Oncology at [address] [phone] Shon Schneider MD [facility] [place] [address] Ciara Pitts APRN [address] [place] [address] DR HEMATOLOGY AND ONCOLOGY [place], [place] [address] 03/09/2024 10:30 AM EDT Infusion Hematology Oncology at [address] [phone] documented as of this encounter Goals Goal [...] 10 mg, Intravenous, ONCE, 1 dose, On Tue03/28/20 at 1200 Given 03/28/2020 11:51 AM EDT 10 mg GEMcitabine 2,400 mg in sodium chloride 0.9% 313.1579 mL chemo infusion 2,400 mg, Intravenous, ONCE, 1 dose, On Tue03/28/20 at 1300, Administer over 30 Minutes, Warning Vesicant/Irritant Medication Dose Ordered = 2440 mg (1000 mg/m2). Pharmacist rounded dose per procedure. New Bag 03/28/2020 12:15 PM EDT 2,400 mg 626 mL/hr heparin, porcine 100 unit/mL flush 500 Units 500 Units, Intravenous, ONCE PRN, Starting on Tue03/28/20 at 1141, Until Tue03/28/20 at 1453, Line Care, Refer to Intravenous (IV) Procedure: Accessing Implanted Vascular Access Devices (654) procedure and/or Intravenous (IV) Job Aid: Adult Flushing & Catheter Care (1143) job aid for additional information regarding guidelines and administration., Routine Given 03/28/2020 12:46 PM EDT 500 Units ondansetron (Zofran) tablet 8 mg 8 mg, Oral, ONCE, 1 dose, On Tue03/28/20 at 1200, Administer prior to chemotherapy, Routine Given 03/28/2020 11:51 AM EDT 8 mg sodium chloride 0.9 % (flush) flush 5-20 mL 5-20 mL, Intravenous, EVERY 1 MIN PRN, Starting on Tue03/28/20 at 1141, Until Tue03/28/20 at 1453, Line Care, Flush pertains to all indwelling lines. Flush per protocol found in the job aid using the link provided on this medication record. Refer to Intravenous (IV) Job Aid: Adult Flushing & Catheter Care (4173) job aid for additional information regarding guidelines and administration., Routine Given 03/28/2020 12:46 PM EDT 20 mLs documented in this encounter Care Teams Poultry Farm Supervisor Relationship Specialty Start Date End Date Jerzy Vidal MD [address] [place] [address] [place] [address] PCP - [facility] [place] Medicine 12/04/18 documented as of this encounter
--- OUTSIDE RECORDS SUMMARY | 2024-02-24 01:21 | XMS_ITS | Encounter Summary ---
Author Organization [facility] Address [facility] [place] [address] Care Team Providers Care Permit Technician Name Role Phone Jerzy Vidal MD Primary Care Provider [phone] Reason for Visit * Reason Comments Chemotherapy Cycle 3, Day 1 - [place] citabine * Treatment/Therapy Plan Authorization (Routine) - Closed Specialty Diagnoses / Procedures Referred By Franklyn del rio Referred To Contact Diagnoses Thymic carcinoma Procedures TC GEMCITABINE HCL, 200MG, INJECTION (GEMZAR) Shon Schneider MD [facility] [place] [address] Stj Hem Onc Infusion [address] [place] [phone] Referral ID Status Reason Start Date Expiration Date Visits Re quested Visits Authorized [id number] Closed 02/28/2020 02/28/2021 18 18 Encounter Details Date Type Department Care Team (Late st Contact Info) Description 04/11/2020 11:30 AM EDT Infusion Hematology Oncology at [address] [phone] Thymic carcinoma Social History Tobacco Use Types Packs/Day Years Used Date Smoking Tobacco: Never Smokeless Tobacco: Never Sex and Gender Information Value Date Recorded Sex Assigned at Not on file Gender Identity Not on file Sexual Orientation Not on file documented as of this encounter Progress Notes * Ute Chacon RN - 04/11/2020 11:30 AM EDT INFUSION THERAPY ADMINISTRATION NOTES DIAGNOSIS: Thymic Cancer CYCLE #: Cycle 3, Day 1 - Gemcitabine and oral Capectabine REASON FOR VISIT: To receive chemotherapy. SUBJECTIVE: Monica Jaramillo offers no complaints. OBJECTIVE: VSS. Seen by provider. Ready to treat. LAB DATA: 04/10/20 - WBC - 4.5, H/H - 11.4/36.1, Plt Ct - 249, ANC - 3.04, BUN/CR - 8/0.50, Lytes wnl, MG++ - 1.5 IV ACCESS: Port accessed without difficulty, flushes readily with brisk blood return. Pre administration: Chemotherapy orders independently verified for drug name, route, and dosage per patient's height, weight and BSA by Ute Chacon, SEBASTIAN and On site [facility]. REACTIONS (DESCRIPTION, TIME, INTERVENTION AND EFFECTIVENESS) none ASSESSMENT Monica Jaramillo was awake, alert and she tolerated treatment well. Port flushed with 20 cc's of NS and 500 units of heparin and de-accessed. PLAN Return to clinic as planned. documented in this encounter Plan of Treatment Upcoming Encounters Date Type Department Care Team (Late st Contact Info) Description 02/24/2024 9:00 AM EDT Office Visit Hematology/Oncology at [address] [phone] Shon Schneider MD [facility] [place] [address] Ciara Pitts SATELLITE COMMUNICATIONS ENGINEER [address] [place] [address] HEMATOLOGY [place] [address] 02/24/2024 9:30 AM EDT Infusion Hematology Oncology at [address] [phone] 03/02/2024 11:00 AM EDT Office Visit Hematology/Oncology at [address] [phone] Shon Schneider MD [facility] [place] [address] HEMATOLOGY AND ONCOLOGY [place], [place] [address] 03/02/2024 12:30 PM EDT Infusion Hematology Oncology at [address] [phone] 03/09/2024 10:00 AM EDT Office Visit Hematology/Oncology at [address] [phone] Shon Schneider MD [facility] [place] [address] [address] HEMATOLOGY AND ONCOLOGY [place], [place] [phone] 03/09/2024 10:30 AM EDT Infusion Hematology Oncology at [address] [phone] documented as of this encounter [...] 10 mg, Intravenous, ONCE, 1 dose, On Tue04/11/20 at 1200 Given 04/11/2020 12:12 PM EDT 10 mg GEMcitabine 2,400 mg in sodium chloride 0.9% 313.12 mL chemo infusion 2,400 mg, Intravenous, ONCE, 1 dose, On Tue04/11/20 at 1300, Administer over 30 Minutes, Warning Vesicant/Irritant Medication Dose Ordered = 2440 mg (1000 mg/m2). Pharmacist rounded dose per procedure. New Bag 04/11/2020 12:46 PM EDT 2,400 mg 626 mL/hr heparin, porcine 100 unit/mL flush 500 Units 500 Units, Intravenous, ONCE PRN, Starting on Tue04/11/20 at 1140, Until Tue04/11/20 at 1558, Line Care, Refer to Intravenous (IV) Procedure: Accessing Implanted Vascular Access Devices (654) procedure and/or Intravenous (IV) Job Aid: Adult Flushing & Catheter Care (1709) job aid for additional information regarding guidelines and administration., Routine Given 04/11/2020 1:20 PM EDT 500 Units ondansetron (Zofran) tablet 8 mg 8 mg, Oral, ONCE, 1 dose, On Tue04/11/20 at 1200, Administer prior to chemotherapy, Routine Given 04/11/2020 12:12 PM EDT 8 mg sodium chloride 0.9 % (flush) flush 5-20 mL 5-20 mL, Intravenous, EVERY 1 MIN PRN, Starting on Tue04/11/20 at 1140, Until Tue04/11/20 at 1558, Line Care, Flush pertains to all indwelling lines. Flush per protocol found in the job aid using the link provided on this medication record. Refer to Intravenous (IV) Job Aid: Adult Flushing & Catheter Care (7742) job aid for additional information regarding guidelines and administration., Routine Given 04/11/2020 1:20 PM EDT 20 mLs documented in this encounter Care Teams Permit Technician Relationship Specialty Start Date End Date Jerzy Vidal MD [address] [place] [address] [place] [address] PCP - [facility] Medicine 12/04/18 documented as of this encounter
--- OUTSIDE RECORDS SUMMARY | 2024-02-24 01:21 | XMS_ITS | Encounter Summary ---
Author Organization [facility] [place] [address] Care Team Providers Care Arts And Crafts Teacher Name Role Phone Jerzy Vidal MD Primary Care Provider [phone] Reason for Visit * Reason Comments Medication Refill Encounter Details Date Type Department Care Team (Late Contact Info) Description 05/27/2020 Refill Hematology/Oncology at [address] [phone] Shon Schneider MD [facility] [place] [address] Hypomagnesemia Social History Tobacco Use Types Packs/Day [...] AM EDT Office Visit Hematology/Oncology at [address] [phone] Shon Schneider MD [facility] [place] [address] Ciara Pitts APRN [address] [place] [address] DR HEMATOLOGY AND ONCOLOGY [place], [place] [id number] 02/24/2024 9:30 AM EDT Infusion Hematology Oncology at [address] [phone] 03/02/2024 11:00 AM EDT Office Visit Hematology/Oncology at [address] [phone] Shon Schneider MD [facility] [place] [address] HEMATOLOGY AND ONCOLOGY [place], [place] [id number] 03/02/2024 12:30 PM EDT Infusion Hematology Oncology at [address] [phone] 03/09/2024 10:00 AM EDT Office Visit Hematology/Oncology at [address] [phone] Shon Schneider MD [facility] [place] [place] [address] [place] [address] 03/09/2024 10:30 AM EDT Infusion Hematology Oncology at [address] [phone] documented as of this encounter Goals Goal [...] thymus documented in this encounter Care Teams Arts And Crafts Teacher Relationship Specialty Start Date End Date Jerzy Vidal MD [address] [place] [address] [place] [address] PCP - [facility] Medicine 12/04/18 documented as of this encounter
--- OUTSIDE RECORDS SUMMARY | 2024-02-24 01:21 | XMS_ITS | Encounter Summary ---
[place] [address] Care Team Providers Care Intermediate School Teacher Name Role Phone Jerzy Vidal MD Primary Care Provider [phone] Reason for Visit * Reason Comments Medication Management Patient Education Encounter Details Date Type Department Care Team (Late st Contact Info) Description 02/25/2020 Specialty [place] [address] Ivana Vanegas [facility] Social History Tobacco Use Types Packs/Day Years Used Date Smoking Tobacco: Never Smokeless Tobacco: Never Sex and Gender Information Value Date Recorded Sex Assigned at Not on file Gender Identity Not on file Sexual Orientation Not on file documented as of this encounter Progress Notes * Ivana Mcmahan RPH - 02/25/2020 1:50 PM EDT Specialty Pharmacy Consultation; Ivana Mcmahan Gretchen Comprehensive Medication Management (CMM) Monica Jaramillo Diagnosis: Thymic carcinoma Therapy Start Date: 02/27/20 Contact in person or via telephone:phone Ms. Monica Jaramillo is a 64 y.o. (1955) female who was called today. I spoke with the patient regarding their specialty medication Capecitabine and a review of the drug therapy was performed. The medication was filled as scheduled, and all related questions and concerns were addressed. The specialty pharmacy staff will follow up with the patient 5-7 days prior to next refill. Is the patient willing to proceed with the Clinical Assessment? Yes Summary and Recommendations: Potential side effects of Capecitabine such as fatigue, fever, bleeding, myalgia, edema, hand/foot syndrome, N/V/D, CARLOS, rash, cough, and stomatitis reviewed with possible management strategies. The patient stated that she has been on treatment in the past and had experienced some nausea and she still has some antiemetics on hand. Her blood pressure has remain within or very close to goal on recent visits and she will continue to monitor this after initiation and going forward. She takes Eliquisand note no issues with bleeding at this time but we discussed that Capecitabine may lower platelets and the signs of a major hemorrhage. Med list reviewed - no major interactions identified. The patient is aware of the importance of lab follow up and infection prevention precautions such as properhand washing, inactive vaccination, and wearing a during an illness. The importance of adherence totreatment and strategies to improve compliance including use of pill boxes, calendar reminders, or routine alarms was discussed. The patient was instructed to notify the clinic of any upcoming procedures or new medications and OTC products. Resources are available to the patient from the cancer center such as ethylbenzene converter operator consultation and social work services. Administration, allergies, dosage, safestorage away from pets or children, handling and disposal were reviewed. The pharmacy's contact info rmation, operating hours, and on-call services were given to the patient verbally and in writing. The medication will be mailed out for a $0 copay and her next ref[facility] per insurance mandate. Clinic follow-up needed: no Allergies and Drug intolerance: Allergies Allergen Reactions ??? Carboplatin ??? Penicillins Hives ??? Pollen Extracts Other (See Comments) rhinorrhea Problem List: Patient Active Problem List Diagnosis Code ??? Thymic carcinoma C37 ??? Pancytopenia D61.818 ??? Atrial fibrillation I48.91 ??? Essential hypertension I10 ??? Hypothyroidism E03.9 ??? Abnormal uterine bleeding N93.9 Special Dietary or Hydration Requirements: no There is no height or weight on file to calculate BMI. Medication reconciliation discrepancies (compared to [facility] med list): no Medication Adherence Patient reported X missed doses in the last month: 0 Any gaps in refill history greater than 2 weeks in the last 3 months: no Demonstrates understanding of importance of adherence: yes Informant: patient Reliability of informant: reliable Provider-estimated medication adherence level: 90-100% Reasons for non-adherence: no problems identified Adherence tools used: alarm Support network for adherence: family member Confirmed plan for next specialty medication refill: delivery by pharmacy Refills needed for supportive medications: not needed Medication List: Current Outpatient Medications Medication Sig Dispense Refill ??? CAPEcitabine (XELODA) chemo tablet Take with food. Call clinic before starting medication. [id number] mg PO bid for 14 days followed by 7 days off. Cycles repeated every three weeks. 28 Doses of treatment to dispense 5 ??? ALBUTEROL INHL Inhale 2 puffs into the lungs every 4 hours as needed. ??? aMILoride (Midamor) 5 mg Tablet TAKE ONE TABLET BY MOUTH EVERY DAY 30 tablet 3 ??? levothyroxine (Synthroid) 25 mcg Tablet Take 1 tablet by mouth daily. 90 tablet 3 ??? magnesium oxide (MAG-OX) 400 mg Tablet Take 400 mg by mouth 2 times daily. Indications: hypomagnesemia ??? acetaminophen (TYLENOL) 500 mg Tablet Take 1,000 mg by mouth every 6 hours as needed for Pain. ??? ascorbic acid, vitamin C, (VITAMIN C) 500 mg Tablet, Chewable Take 1 tablet by mouth daily. ??? prochlorperazine (COMPAZINE) 5 mg Tablet Take 1 tablet by mouth every 6 hours as needed for Nausea. (Patient not taking: Reported on 07/31/2019) 15 tablet 0 ??? meTOPROLOL succinate (TOPROL-XL) 200 mg Tablet Sustained Release 24 hr Take 200 mg by mouth daily. Indications: Multifocal Atrial Tachycardia ??? DILTiazem (CARDIZEM CD) 240 mg Capsule, Sust. Release 24 hr Take 240 mg by mouth daily. Indications: Ventricular Rate Control in Atrial Fibrillation ??? apixaban (ELIQUIS) 5 mg Tablet Take 5 mg by mouth 2 times daily. ??? multivitamin (THERAGRAN) Tablet Take 1 tablet by mouth daily. No current facility-administered medications for this visit. Most Recent Vitals: Ht Readings from Last 1 Encounters: 02/08/20 176 cm (5' 9.29) Wt Readings from Last 3 Encounters: 02/08/20 121.7 kg (268 lb 6.4 oz) 01/18/20 123.4 kg (272 lb) 12/21/19 123.4 kg (272 lb) Temp Readings from Last 3 Encounters: 02/08/20 36.5 ??C (97.7 ??F) (Temporal) 01/18/20 36.4 ??C (97.5 ??F) (Temporal) 12/21/19 36.2 ??C (97.2 ??F) (Temporal) BP Readings from Last 3 Encounters: 02/08/20 125/88 01/18/20 145/81 12/21/19 139/79 Pulse Readings from Last 3 Encounters: 02/08/20 80 01/18/20 65 12/21/19 88 Pertinent Lab values: Lab Results Component Value Date NA 138 07/31/2019 K 3.8 07/31/2019 CL 99 07/31/2019 CO2 27 07/31/2019 BUN 10 07/31/2019 CREATININE 0.58 (L) 07/31/2019 GLUCOSE 117 07/31/2019 CALCIUM 9.6 07/31/2019 Lab Results Component Value Date ALT 16 07/31/2019 AST 14 07/31/2019 ALKPHOS 43 07/31/2019 BILITOT 0.5 07/31/2019 ALBUMIN 4.1 07/31/2019 PROT 7.5 07/31/2019 Lab Results Component Value Date WBC 4.7 08/30/2019 HGB 9.5 08/30/2019 HCT 30.9 08/30/2019 MCV 120.6 (H) 07/31/2019 PLATELET 212 08/30/2019 No results found for: HA1C There is no immunization history on file for this patient. Assessment and Recommendations: Title Type of Medication Management: chronic disease management Recipient: beneficiary Provider: plan sponsor pharmacist Method of Contact: by telephone Cognitive Ability: good Cognitive Impairment Status Verified this Year: no Drug Interactions Provided the patient with educational material regarding drug interactions: yes Patient Counseling Counseled the patient on the following: reviewed medication changes since last visit, medication safety precautions education provided, drug interaction education provided to patient, safe handling, storage, and disposal discussed, possible adverse effects and management discussed, lab monitoring and follow-up discussed, cost of medications and cost implications discussed, adherence and missed doses discussed, monitoring medication discussed, over the counter products discussed, self-monitoring discussed Drug Medication Management Summary Topics discussed: reviewed medication changes since last visit, medication safety precautions education provided, drug interaction education provided to patient, safe handling, storage, and disposal discussed, possible adverse effects and management discussed, lab monitoring and follow-up discussed, cost of medications and cost implications discussed, adherence and missed doses discussed, monitoring medication discussed, over the counter products discussed, self-monitoring discussed Number of adverse drug events identified: 0 Time spent: 16-30 min Treatment Outcomes 02/25/2020 8979 Disease progression: Stable Patient Overall Status: Stable Reviewed in detail with patient: Dose appropriateness based on recommended standard dosing Current medication list including OTC medications Medication and disease problems Allergies Comorbid conditions/ Problem List Past adverse events if any Special needs of the patient including physical and cognitive limitations Goals of therapy and management strategies Warnings, precautions, and contraindications Side effects Drug-drug and drug-food interactions Administration instructions including dose, frequency and method Handling, storage, and disposal Verifying expiration dates on products before use Rotating medication inventory to use oldest product first Relevant lab data Patient verbalizes understanding and is able to read-back instructions on self-administration/injection, proper storage, drug stability, importance of adherence and management strategies, side effectavoidance and mitigation strategies, and interruptions in therapy: Yes Physical and Cognitive Assessment: Functional limitations identified: no Cognitive limitations identified: no Concern regarding orientation/memory: no Concern with reasoning/judgement: no Is patient a fall risk: no Other needed information: no Social Assessment: Does the patient have a primary childcare worker? no Does the patient have an emergency contact on file: Yes Does patient need referral to manager social services: No Does patient need referral to advocacy group: No Home Health Assessment: Is the patient in a safe home environment? Yes Is the patient able to store their medication as directed? Yes Does the patient have a support network at home? Yes Reviewed potential home safety hazards with patient: Yes Economic Assessment: Patient is agreeable to medication copay: Yes Copay Amount: $0 Day Supply: 21 Date Needed: 02/27/20 Copay assistance required: no Therapy Assessment: Current Medication Dosing/Route/Frequency: Capecitabine 1000mg PO BID x 14 days on and 7 off Appropriate therapy: Yes Patient's Problems/Needs: The patient also has a cardiac history and will need to monitor for signsof bleeding while on Eliquis as well as her blood pressure during initiation of chemotherapy and ongoing. Expected outcome: Slow disease progression as assessed by labs and scans in clinic every 1 to 3 months Patient Goals: Hematology/Oncology related goals may include remission, palliative or hospice care, a bridge to future surgery, transplant, and radiation or infusion therapy. Goals ??? Home Medication Compliance and Understanding Remain 95% or better adherent to chemotherapy without severe side effects as assessed by days supply and patient reported adverse events at each refill Care Plan Reviewed and Approved by both Pharmacist and Patient: Yes Interventions (if applicable): No Additional care/services needed: no Educational information or adherence tools provided: Yes Additional equipment/supplies required: no Monitoring requirements for prescribed medication: CBC, CMP, CT or MRI Patient Status and Counseling: Is the patient experiencing pain? no Relevant monitoring results reviewed for bone marrow suppression, opportunistic infection, tumor lysis syndrome, metabolic disturbance and end organ dysfunction yes - . Pharmacist follow-up needed: Yes Patient Satisfaction with care/services provided: Yes Informed patient of specialty pharmacy services: Yes -Patient will be provided with welcome packet: Yes Date to be provided: mailed today -Patient is aware a licensed pharmacist is available 24 hours a day, 7 days a week to discuss medication-related questions or concerns: Yes -Patient verbalizes understanding of the common side effect profile of their medication. The patient is able to call 911 or seek urgent care if signs/symptoms of allergy or harmful adverse reactions occur: Yes Patient understands any changes to current drug regimen were made at the appointment and that [facility] is providing recommendations (summary located at top of note) for provider review and follow up. Ivana Mcmahan RPH 02/25/20 4:59 PM documented in this encounter Plan of Treatment Upcoming Encounters Date Type Department Care Team (Late st Contact Info) Description 02/24/2024 9:00 AM EDT Office Visit Hematology/Oncology at [address] [phone] Shon Schneider MD [facility] [place] [address] HEMATOLOGY AND ONCOLOGY [place], [place] [address] 02/24/2024 9:30 AM EDT Infusion Hematology Oncology at [address] [phone] 03/02/2024 11:00 AM EDT Office Visit Hematology/Oncology at [address] [phone] Shon Schneider MD [facility] [place] [address] HEMATOLOGY AND ONCOLOGY [place], [place] [id number] 03/02/2024 12:30 PM EDT Infusion Hematology Oncology at [address] [phone] 03/09/2024 10:00 AM EDT Office Visit Hematology/Oncology at [address] [phone] Shon Schneider MD [facility] [place] [address] HEMATOLOGY AND ONCOLOGY [place], [place] [id number] 03/09/2024 10:30 AM EDT Infusion Hematology Oncology at [address] [phone] documented as of this encounter Goals Goal Patient Goal Type Associated Problems Recent Progress Patient-Stated? Author DH Home Medication Compliance and Understanding Patient Facing Action Plan On track( 019 3:22 PM EST) Ivana Ashraf, [facility] Note: Remain 95% or better adherent to chemotherapy without severe side effects as assessed by days supply and patient reported adverse events at each refill documented as of this encounter Visit Diagnoses Not on filedocumented in this encounter Care Teams Intermediate School Teacher Relationship Specialty Start Date End Date Jerzy Vidal MD [address] [place] [address] [place] [address] PCP - [facility] Medicine 12/04/18 documented as of this encounter
--- OUTSIDE RECORDS SUMMARY | 2024-02-24 01:21 | XMS_ITS | Encounter Summary ---
Author Organization [facility] [place] [address] Care Team Providers Care Plastic Manager Name Role Phone Jerzy Vidal MD Primary Care Provider [phone] Encounter Details Date Type Department Care Team (Late Contact Info) Description 03/19/2020 Orders Only Hematology [place] [phone] Shon Schneider MD [facility] [place] [address] Social History Tobacco Use Types Packs/Day Years [...] 9:00 AM EDT Office Visit Hematology/Oncology at [address] [phone] Shon Schneider MD [facility] [place] [address] Ciara Pitts APRN [address] [place] [address] DR [place] [address] 02/24/2024 9:30 AM EDT Infusion Hematology Oncology at [address] [phone] 03/02/2024 11:00 AM EDT Office Visit Hematology/Oncology at [address] [phone] Shon Schneider MD [facility] [place] [address] HEMATOLOGY AND ONCOLOGY [place], [place] [id number] 03/02/2024 12:30 PM EDT Infusion Hematology Oncology at [address] [phone] 03/09/2024 10:00 AM EDT Office Visit Hematology/Oncology at [address] [phone] Shon Schneider MD [facility] [place] [address] [address] [place] [address] 03/09/2024 10:30 AM EDT Infusion Hematology Oncology at [address] [phone] documented as of this encounter Goals Goal Patient Goal Type Associated Problems Recent Progress Patient-Stated? Author DH Home Medication Compliance and Understanding Patient Facing Action Plan On track( 019 3:22 PM EST) Ivana Ashraf, [facility] Note: Remain 95% or better adherent to chemotherapy without severe side effects as assessed by days supply and patient reported adverse events at each refill documented as of this encounter Visit Diagnoses Not on filedocumented in this encounter Care Teams Plastic Manager Relationship Specialty Start Date End Date Jerzy Vidal MD [address] [place] [address] [place] [address] PCP - General [facility] Medicine 12/04/18 documented as of this encounter
--- OUTSIDE RECORDS SUMMARY | 2024-02-24 01:21 | XMS_ITS | Encounter Summary ---
Author Organization [facility] Address [facility] [place] [address] Care Team Providers Care Drop Press Hand Name Role Phone Jerzy Vidal MD Primary Care Provider [phone] Encounter Details Date Type Department Care Team (Late st Contact Info) Description 04/11/2020 11:00 AM EDT Office Visit Hematology/Oncology at [address] [phone] Shon Schneider MD [facility] [place] [address] Ivory Flynn, TEST ENGINE MECHANIC [address] [place] [address] DR HEMATOLOGY ONCOLOGY [place], [place] [id number] Thymic carcinoma Social History Tobacco Use Types Packs/Day Years Used Date Smoking Tobacco: Never Smokeless Tobacco: Never Sex and Gender Information Value Date Recorded Sex Assigned at Not on file Gender Identity Not on file Sexual Orientation Not on file documented as of this encounter Last Filed Vital Signs Vital Sign Reading Time Taken Comments Blood Pressure 109/81 04/11/2020 11:01 AM EDT Pulse 66 04/11/2020 11:01 AM EDT Temperature 36.6 ??C (97.8 ??F) 04/11/2020 1 1:01 AM EDT Respiratory Rate 20 04/11/2020 11:0 1 AM EDT Oxygen Saturation 96% 04/11/2020 11: 01 AM EDT Inhaled Oxygen Concentration - - Weight 126.4 kg (278 lb 9.6 oz) 020 11:01 AM EDT Height 176 cm (5' 9.29) 04/11/2020 11: 01 AM EDT Body Mass Index 40.8 04/11/2020 11:01 AM EDT documented in this encounter Progress Notes * Shon Schneider MD - 04/11/2020 11:00 AM EDT Subjective: Patient ID: Monica [...] B. 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 [facility] - CONSULT SLIDES FROM [facility]; [place], [place]: A. MEDIASTINUM, MASS, BIOPSY ([id number]; 03/22/2017): ? MALIGNANT THYMIC EPITHELIAL NEOPLASM consistent [...] 4.5 CM, ULTRASOUND GUIDED FINED NEEDLE ASPIRATION ([id number]; 03/22/17): The cytologic preparations were not reviewed [...] Second opinion with Dr. Roddy Vega in [place]. They reviewed the pathology and concurred they [...] therapy with pembrolizumab L. CT c/a/p 11/06/19 ([facility] second read) - IMPRESSION [...] today by her Royce. She is feeling generally well and is tolerating therapy well. She says that every to often she gets a feeling of bloating and gassiness. Along with this she feels SOB. When the abdominal symptoms improve, the feeling of SOB improves also. She doesn't take anything for this and says it just improves with time. It seems to correlate with when she is on the capecitabine. Her bowels are regular. No diarrhea or stomatitis. No fevers or chills. No chest pain and no pain at all. The LE edema is better. Soc Hx: , lives in [place], [place] Tob - Never Etoh - rare [...] is normal. Vitals reviewed. Labs: WBC/ANC - 4.10/3039, Hgb/Hct - 11.4/36.1, Plts - 249,000. BUN/Cr - 8/0.5. Mg - 1.5. Lytes and LFTs o/w unremarkable. LDH - 431 (313-618); TSH - 0.95, FT4 - 1.18 Assessment and Plan: Ms. Jaramillo is a [...] I spoke with Dr. Vega at [facility]. There were no clinical trials [...] mg/day, 2 weeks followed by one w [place] off, with cycles repeated every three weeks. [...] also spoke with Dr. Shon Ramon at [facility]. He agrees that gemcitabine plus capecitabine is very reasonable and that he would consider using lenvatinib in the next line setting. She began therapy with gemcitabine plus capecitabine on 02/29/20 and has received two cycles. She has tolerated that well and is feeling very well. She will receive cycle 3/day 1 gemcitabine today andwe will see her next week for consideration of day 8 therapy. We will plan to repeat the CT after cycle 3, ie in three weeks. documented in this encounter Plan of Treatment Upcoming Encounters Date Type Department Care Team (Late st Contact Info) Description 02/24/2024 9:00 AM EDT Office Visit Hematology/Oncology at [address] [phone] Shon Schneider MD [facility] [place] [address] Ciara Pitts APRN [address] [place] [address] [place] [address] 02/24/2024 9:30 AM EDT Infusion Hematology Oncology at [address] [phone] 03/02/2024 11:00 AM EDT Office Visit Hematology/Oncology at [address] [phone] Shon Schneider MD [facility] [place] [address] [address] HEMATOLOGY AND ONCOLOGY [place], [place] [address] 03/02/2024 12:30 PM EDT Infusion Hematology Oncology at [address] [phone] 03/09/2024 10:00 AM EDT Office Visit Hematology/Oncology at [address] [phone] Shon Schneider MD [facility] [address] HEMATOLOGY AND ONCOLOGY [place], [place] [id number] 03/09/2024 10:30 AM EDT Infusion Hematology Oncology at [address] [phone] documented as of this encounter [...] thymus documented in this encounter Care Teams Drop Press Hand Relationship Specialty Start Date End Date Jerzy Vidal MD [address] [place] [address] [place] [address] PCP - [facility] Medicine 12/04/18 documented as of this encounter
--- OUTSIDE RECORDS SUMMARY | 2024-02-24 01:21 | XMS_ITS | Encounter Summary ---
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 Procedures TC GEMCITABINE HCL, 200MG, INJECTION (GEMZAR) Shon Schneider MD [facility] [place] [address] St Hem Onc Infusion [address] [place] [phone] Referral ID Status Reason Start Date Expiration Date Visits Re quested Visits Authorized [id number] Closed 02/28/2020 02/28/2021 18 18 Encounter Details Date Type Department Care Team (Late st Contact Info) Description 05/09/2020 9:30 AM EST Infusion Hematology Oncology at [address] [phone] Thymic carcinoma Social History Tobacco Use Types Packs/Day Years Used Date Smoking Tobacco: Never Smokeless Tobacco: Never Sex and Gender Information Value Date Recorded Sex Assigned at Not on file Gender Identity Not on file Sexual Orientation Not on file documented as of this encounter Progress Notes * Boaz Amos RN - 05/09/2020 9:30 AM EST INFUSION THERAPY ADMINISTRATION NOTES DIAGNOSIS: Thymic cancer CYCLE #4: Day 8 REASON FOR VISIT: Gemcitabine SUBJECTIVE Monica offers no complaints. OBJECTIVE LAB DATA: [facility], reviewed with provider in clinic and WNL for treatment today. IV ACCESS: Implanted port Pre administration: Chemotherapy orders independently verified for drug name, route, and dosage per patient's height, weight and BSA by Boaz Amos RN and Stanislaw Hawley [facility]. REACTIONS (DESCRIPTION, TIME, INTERVENTION AND EFFECTIVENESS) none ASSESSMENT Monica was awake, alert and tolerated treatment well. PLAN Return to clinic per routine. documented in this encounter Plan of Treatment Upcoming Encounters Date Type Department Care Team (Late st Contact Info) Description 02/24/2024 9:00 AM EDT Office Visit Hematology/Oncology at [address] [phone] Shon Schneider MD [facility] [place] [address] [place] [address] 02/24/2024 9:30 AM EDT Infusion Hematology Oncology at [address] [phone] 03/02/2024 11:00 AM EDT Office Visit Hematology/Oncology at [address] [phone] Shon Schneider MD [facility] [place] [address] [place] [address] 03/02/2024 12:30 PM EDT Infusion Hematology Oncology at [address] [phone] 03/09/2024 10:00 AM EDT Office Visit Hematology/Oncology at [address] [phone] Shon Schneider MD [facility] [place] [address] Ciara Pitts APRN [address] [place] [address] DR HEMATOLOGY AND ONCOLOGY [place], [place] [address] 03/09/2024 10:30 AM EDT Infusion Hematology Oncology at [address] [phone] documented as of this encounter Goals Goal Patient Goal Type Associated Problems Recent Progress Patient-Stated? Author DH Home Medication Compliance and Understanding Patient Facing Action Plan On track( 019 3:22 PM EST) Ivana Ashraf, [facility] Note: Remain 95% or better adherent [...] 10 mg, Intravenous, ONCE, 1 dose, On Tue05/09/20 at 0945 Given 05/09/2020 9:36 AM EST 10 mg GEMcitabine 2,400 mg in sodium chloride 0.9% 313.12 mL infusion 2,400 mg, Intravenous, ONCE, 1 dose, On Tue05/09/20 at 1045, Administer over 30 Minutes, Warning Vesicant/Irritant Medication Dose Ordered = 2440 mg (1000 mg/m2). Pharmacist rounded dose per procedure. New Bag 05/09/2020 10:06 AM EST 2,400 mg 626 mL/hr heparin (pf) (porcine) (100 units/mL) flush 5 mL syringe 500 Units 500 Units, Intravenous, ONCE PRN, Starting on Tue05/09/20 at 0918, Until Tue05/09/20 at 1248, Line Care, Refer to Intravenous (IV) Procedure: Accessing Implanted Vascular Access Devices (654) procedure and/or Intravenous (IV) Job Aid: Adult Flushing & Catheter Care (7005) job aid for additional information regarding guidelines and administration., Routine Given 05/09/2020 10:40 AM EST 500 Units ondansetron (Zofran) tablet 8 mg 8 mg, Oral, ONCE, 1 dose, On Tue05/09/20 at 0945, Administer prior to chemotherapy, Routine Given 05/09/2020 9:35 AM EST 8 mg sodium chloride 0.9 % (flush) flush 5-20 mL 5-20 mL, Intravenous, EVERY 1 MIN PRN, Starting on Tue05/09/20 at 0918, Until Tue05/09/20 at 1248, Line Care, Flush pertains to all indwelling lines. Flush per protocol found in the job aid using the link provided on this medication record. Refer to Intravenous (IV) Job Aid: Adult Flushing & Catheter Care (1101) job aid for additional information regarding guidelines and administration., Routine Given 05/09/2020 10:39 AM EST 20 mLs documented in this encounter Care Teams Plastic Straightening Roll Operator Relationship Specialty Start Date End Date Jerzy Vidal MD [address] [place] [address] PCP - [facility] Medicine 12/04/18 documented as of this encounter
--- OUTSIDE RECORDS SUMMARY | 2024-02-24 01:21 | XMS_ITS | Encounter Summary ---
Author Organization [facility] [place] [address] Care Team Providers Care Vice President Biostatistics Name Role Phone Jerzy Vidal MD Primary Care Provider [phone] Reason for Visit * Reason Onset Date Comments Follow-up 03/21/2020 Encounter Details Date Type Department Care Team (Late Contact Info) Description 03/21/2020 Telephone Hematology/Oncology at [address] [phone] Brionna Andrade RN Follow-up Social History Tobacco Use Types Packs/Day Years Used Date Smoking Tobacco: Never Smokeless Tobacco: Never Sex and Gender Information Value Date Recorded Sex Assigned at Not on file Gender Identity Not on file Sexual Orientation Not on file documented as of this encounter Miscellaneous Notes * Telephone Encounter - Brionna Andrade RN - 03/21/2020 12:40 PM EDT Monica said [facility] asked that she get a PA for her next dose of capecitabine which is due in 3 weeks. Spoke to Jose A Parisi Looper Operator - Oncology [facility]. [phone] At [facility] and he looked into and said a PA was sent on 02/26/20. So everything looks fine. He will keep his eye on it and any issues, will contact us. I let Monica know. documented in this encounter Plan of Treatment Upcoming Encounters Date Type Department Care Team (Late Contact Info) Description 02/24/2024 9:00 AM EDT Office Visit Hematology/Oncology at [address] [phone] Shon Schneider MD [facility] [place] [address] [address] HEMATOLOGY AND ONCOLOGY [place], [place] [address] 02/24/2024 9:30 AM EDT Infusion Hematology Oncology at [address] [phone] 03/02/2024 11:00 AM EDT Office Visit Hematology/Oncology at [address] [phone] Shon Schneider MD [facility] [place] [address] HEMATOLOGY AND ONCOLOGY [place], [place] [phone] 03/02/2024 12:30 PM EDT Infusion Hematology Oncology at [address] [phone] 03/09/2024 10:00 AM EDT Office Visit Hematology/Oncology at [address] [phone] Shon Schneider MD [facility] [place] [address] Ciara Pitts, [address] HEMATOLOGY AND ONCOLOGY [place], [place] [address] 03/09/2024 10:30 AM EDT Infusion Hematology Oncology at [address] [phone] documented as of this encounter Goals Goal [...] on filedocumented in this encounter Care Teams Vice President Biostatistics Relationship Specialty Start Date End Date Jerzy Vidal MD [address] [place] [address] [place] [address] PCP - [facility] Medicine 12/04/18 documented as of this encounter
--- OUTSIDE RECORDS SUMMARY | 2024-02-24 01:21 | XMS_ITS | Encounter Summary ---
Author Organization [facility] Address [facility] [place] [address] Care Team Providers Care Correctional Officer Sergeant Name Role Phone Jerzy Vidal MD Primary Care Provider [phone] Encounter Details Date Type Department Care Team (Late st Contact Info) Description 05/02/2020 11:30 AM EST Office Visit Hematology/Oncology at [address] [phone] Shon Schneider MD [facility] [place] [address] Ivory Flynn, EUGENIO [address] [place] [address] DR HEMATOLOGY ONCOLOGY [place], [place] [address] Thymic carcinoma Social History Tobacco Use Types Packs/Day Years Used Date Smoking Tobacco: Never Smokeless Tobacco: Never Sex and Gender Information Value Date Recorded Sex Assigned at Not on file Gender Identity Not on file Sexual Orientation Not on file documented as of this encounter Last Filed Vital Signs Vital Sign Reading Time Taken Comments Blood Pressure 119/79 05/02/2020 11:20 AM EST Pulse 74 05/02/2020 11:20 AM EST Temperature 36.2 ??C (97.2 ??F) 05/02/2020 11:[address] Respiratory Rate 18 05/02/2020 11:20 AM EST Oxygen Saturation 97% 05/02/2020 11:20 AM EST Inhaled Oxygen Concentration - - Weight 127 kg (280 lb) 05/02/2020 11:20 AM EST Height 176 cm (5' 9.29) 05/02/2020 11:20 AM EST Body Mass Index 41 05/02/2020 11:20 AM EST documented in this encounter Progress Notes * Shon Schneider MD - 05/02/2020 11:30 AM EST Subjective: Patient ID: Monica [...] pleural effusion with compression atelectasis. transferred to [facility] for further evaluation and workup and [...] B. 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 [facility] - CONSULT SLIDES FROM [facility]; [place], [place]: A. MEDIASTINUM, MASS, BIOPSY ([id number]; 03/22/2017): ? MALIGNANT THYMIC EPITHELIAL NEOPLASM consistent [...] 4.5 CM, ULTRASOUND GUIDED FINED NEEDLE ASPIRATION ([id number]; 03/22/17): The cytologic preparations were not reviewed [...] Second opinion with Dr. Roddy Vega in [place]. They reviewed the pathology and concurred they [...] therapy with pembrolizumab L. CT c/a/p 11/06/19 ([facility] second read) - IMPRESSION [...] This is a telephone encounter. She is accompanied to clinic today by [...] is better. Soc Hx: , lives in [place], [place] Tob - Never Etoh - rare [...] is normal. Vitals reviewed. Labs: WBC/ANC - 5.09/3617, Hgb/Hct - 10.4/33.7, Plts - 245,000. BUN/Cr - 11/0.7. Mg - 1.7. Lytes andLFTs o/w unremarkable. LDH - 429 (313-618); TSH - 1.84 CT personally reviewed, report above. Assessment and Plan: Ms. Jaramillo is a [...] pembrolizumab. I spoke with Dr. Vega at [facility]. There were no clinical trials available [...] mg/day, 2 weeks followed by one w [place] off, with cycles repeated every three weeks. [...] with Dr. Shon Ramon at [facility] [place]. He agrees that gemcitabine plus capecitabine is very reasonable and that he would consider using lenvatinib in the next line setting. She began therapy with gemcitabine plus capecitabine on 02/29/20 and has received two cycles. She has tolerated that well and is feeling very well. The CT done on 04/30/20 is stable overall. There is a small left effusion which is a little larger. For now, we are going to continue the current therapy. She will receive cycle 4/day 1 therapy today and return in 1 week for consideration of day 8. I provided care to the patient today via telephone call. The total time associated with this visit,including review of the CT scan, was 30 minutes. documented in this encounter Plan of Treatment Upcoming Encounters Date Type Department Care Team (Late st Contact Info) Description 02/24/2024 9:00 AM EDT Office Visit Hematology/Oncology at [address] [phone] Shon Schneider MD [facility] [place] [address] LaRoza, Ciara [address] HEMATOLOGY AND [place]COLOGY [place], [place] [address] 02/24/2024 9:30 AM EDT Infusion Hematology Oncology at [address] [phone] 03/02/2024 11:00 AM EDT Office Visit Hematology/Oncology at [address] [phone] Shon Schneider MD [facility] [place] [address] [address] HEMATOLOGY AND ONCOLOGY [place], [place] [address] 03/02/2024 12:30 PM EDT Infusion Hematology Oncology at [address] [phone] 03/09/2024 10:00 AM EDT Office Visit Hematology/Oncology at [address] [phone] Shon Schneider MD [facility] [place] [address] [address] HEMATOLOGY AND ONCOLOGY [place], [place] [phone] 03/09/2024 10:30 AM EDT Infusion Hematology Oncology at [address] [phone] documented as of this encounter Goals Goal Patient Goal Type Associated Problems Recent Progress Patient-Stated? 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 Medicine 12/04/18 documented as of this encounter
--- OUTSIDE RECORDS SUMMARY | 2024-02-24 01:21 | XMS_ITS | Encounter Summary ---
Author Organization [facility] Address [facility] [place] [address] Care Team Providers Care Water Resource Agent Name Role Phone Jerzy Vidal MD Primary Care Provider [phone] Encounter Details Date Type Department Care Team (Late Contact Info) Description 02/22/2020 Orders Only [place]ology [place] [address] Shon Schneider MD [facility] [place] [address] Thymic carcinoma Social History Tobacco Use Types [...] AM EDT Office Visit Hematology/Oncology at [address] [phone] Shon Schneider MD [facility] [place] [address] Ciara Pitts APRN [address] [place] [address] DR HEMATOLOGY [place] [address] 02/24/2024 9:30 AM EDT Infusion Hematology Oncology at [address] [phone] 03/02/2024 11:00 AM EDT Office Visit Hematology/Oncology at [address] [phone] Shon Schneider MD [facility] [place] [address] HEMATOLOGY AND ONCOLOGY [place], [place] [address] 03/02/2024 12:30 PM EDT Infusion Hematology Oncology at [address] [phone] 03/09/2024 10:00 AM EDT Office Visit Hematology/Oncology at [address] [phone] Shon Schneider MD [facility] [address] HEMATOLOGY [place] [address] 03/09/2024 10:30 AM EDT Infusion Hematology Oncology at [address] [phone] documented as of this encounter Goals Goal Patient Goal Type Associated Problems Recent Progress Patient-Stated? Author DH Home Medication Compliance and Understanding Patient Facing Action Plan On track( 019 3:22 PM EST) Ivana Ashraf, 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
--- OUTSIDE RECORDS SUMMARY | 2024-02-24 01:21 | XMS_ITS | Encounter Summary ---
Author Organization [facility] [place] [address] Care Team Providers Care Environmental Planner Name Role Phone Jerzy Vidal MD Primary Care Provider [phone] Encounter Details Date Type Department Care Team (Late Contact Info) Description 03/06/2020 8:50 PM EDT Ancillary [place] [address] Shon Schneider MD [facility] [place] [address] Social History Tobacco Use Types Packs/Day Years [...] AM EDT Office Visit Hematology/Oncology at [address] [phone] Shon Schneider MD [facility] [place] [address] Ciara Pitts APRN [address] [place] [address] DR HEMATOLOGY AND ONCOLOGY [place], [place] [address] 02/24/2024 9:30 AM EDT Infusion Hematology Oncology at [address] [phone] 03/02/2024 11:00 AM EDT Office Visit Hematology/Oncology at [address] [phone] Shon Schneider MD [facility] [place] [address] [address] HEMATOLOGY AND ONCOLOGY [place], [place] [address] 03/02/2024 12:30 PM EDT Infusion Hematology Oncology at [address] [phone] 03/09/2024 10:00 AM EDT Office Visit Hematology/Oncology at [address] [phone] Shon Schneider MD [facility] [place] [address] [address] [place] [address] 03/09/2024 10:30 AM EDT Infusion Hematology Oncology at [address] [phone] documented as of this encounter Goals Goal [...] FILM LIBRARY STORAGE ONLY CT CHEST Routine 03/06/2020 8:47 PM EDT documented in this encounter Results * Film Library- Storage Only CT Chest (03/06/2020 8:47 PM EDT) Narrative [facility] - 03/06/2020 8:47 PM EDT This exam is auto-finalizing. It's purpose is for storage only. Shon Schneider MD IMG FILM LIBRARY ORD ERABLES Performing Organization Address City/State/[facility] Co de Phone Number [place], [place] documented in this encounter Visit Diagnoses Not on filedocumented in this encounter Care Teams Environmental Planner Relationship Specialty Start Date End Date Jerzy Vidal MD [address] [place] [address] [place] [address] PCP - [facility] Medicine 12/04/18 documented as of this encounter
--- OUTSIDE RECORDS SUMMARY | 2024-02-24 01:21 | XMS_ITS | Encounter Summary ---
Author Organization [facility] [place] [address] Care Team Providers Care Mainspring Fabrication Supervisor Name Role Phone Jerzy Vidal MD Primary Care Provider [phone] Reason for Visit * Reason Onset Date Comments New Medication Request 02/22/2020 CAPECITAB INE Encounter Details Date Type Department Care Team (Late st Contact Info) Description 02/22/2020 Telephone Hematology/Oncology at [address] [phone] Boaz Amos, SEBASTIAN New Medication Request (CAPECITABINE) Social History Tobacco Use Types Packs/Day Years Used Date Smoking Tobacco: Never Smokeless Tobacco: Never Sex and Gender Information Value Date Recorded Sex Assigned at Not on file Gender Identity Not on file Sexual Orientation Not on file documented as of this encounter Miscellaneous Notes * Telephone Encounter - Boaz Amos RN - 02/22/2020 5:33 PM EDT Oral Chemotherapy Check Note 02/22/2020 Monica Jaramillo, 1955 Prescriptions for oral chemotherapy were reviewed as follows: Oral Chemotherapy Order: CAPECITABINE Order details: ?? Dose: 1000 mg twice daily ?? Route: By mouth ?? Quantity to be dispensed #: 28 doses ?? Number of refills: 5 ?? Instructions: Take with food. Call clinic before starting medication. Take 1000 mg by mouth for 14 days followed by 7 days off. ?? Cycle number and length: 21 days (3 week cycles) ?? Start date: She is aware she is to see Dr Schneider next week 02/28 prior to starting medication. Plan of care compared to information in the medical record, including note on 02/22/20. The prescription was found to be complete and accurate. It was printed, reviewed and signed by provider and manually faxed to [facility] pharmacy. documented in this encounter Plan of Treatment Upcoming Encounters Date Type Department Care Team (Late st Contact Info) Description 02/24/2024 9:00 AM EDT Office Visit Hematology/Oncology at [address] [phone] Shon Schneider MD [facility] [place] [address] Ciara Pitts [address] HEMATOLOGY [place] [address] 02/24/2024 9:30 AM EDT Infusion Hematology Oncology at [address] [phone] 03/02/2024 11:00 AM EDT Office Visit Hematology/Oncology at [address] [phone] Shon Schneider MD [facility] [place] [address] HEMATOLOGY [place] [address] 03/02/2024 12:30 PM EDT Infusion Hematology Oncology at [address] [phone] 03/09/2024 10:00 AM EDT Office Visit Hematology/Oncology at [address] [phone] Shon Schneider MD [facility] [place] [address] Ciara Pitts APRN [address] [place] [address] DR HEMATOLOGY AND ONCOLOGY [place], [place] [id number] 03/09/2024 10:30 AM EDT Infusion Hematology Oncology at [address] [phone] documented as of this encounter [...] on filedocumented in this encounter Care Teams Mainspring Fabrication Supervisor Relationship Specialty Start Date End Date Jerzy Vidal MD [address] [place] [address] [place] [address] PCP - [facility] Medicine 12/04/18 documented as of this encounter
--- OUTSIDE RECORDS SUMMARY | 2024-02-24 01:21 | XMS_ITS | Encounter Summary ---
Author Organization [facility] [place] [address] Care Team Providers Care Cco Name Role Phone Jerzy Vidal MD Primary Care Provider [phone] Encounter Details Date Type Department Care Team (Late Contact Info) Description 02/22/2020 Orders Only Hematology [place] [address] Shon Schneider MD [facility] [address] Social History Tobacco Use Types Packs/Day Years [...] AM EDT Office Visit Hematology/Oncology at [address] [phone] Shon Schneider MD [facility] [place] [address] Ciara Pitts APRN [address] [place] [address] [place] [address] 02/24/2024 9:30 AM EDT Infusion Hematology Oncology at [address] [phone] 03/02/2024 11:00 AM EDT Office Visit Hematology/Oncology at [address] [phone] Shon Schneider MD [facility] [address] [address] HEMATOLOGY AND ONCOLOGY [place], [place] [address] 03/02/2024 12:30 PM EDT Infusion Hematology Oncology at [address] [phone] 03/09/2024 10:00 AM EDT Office Visit Hematology/Oncology at [address] [phone] Shon Schneider MD [facility] [place] [address] [address] [place] [address] 03/09/2024 10:30 AM EDT Infusion Hematology Oncology at [address] [phone] documented as of this encounter Goals Goal [...] on filedocumented in this encounter Care Teams Cco Relationship Specialty Start Date End Date Jerzy Vidal MD [address] [place] [address] [place] [address] PCP - General [facility] 12/04/18 documented as of this encounter
--- OUTSIDE RECORDS SUMMARY | 2024-02-24 01:21 | XMS_ITS | Encounter Summary ---
Author Organization [facility] Address [facility] [place] [address] Care Team Providers Care Vehicle Dynamics Engineer Name Role Phone Jerzy Vidal MD Primary Care Provider [phone] Encounter Details Date Type Department Care Team (Late st Contact Info) Description 03/07/2020 9:00 AM EDT Office Visit Hematology/Oncology at [address] [phone] Shon Schneider MD [facility] [place] [place] [address] Ivory Flynn, CREATIVE DESIGNER [address] [place] [address] DR HEMATOLOGY ONCOLOGY [place], [place] [id number] Thymic carcinoma Social History Tobacco Use Types Packs/Day Years Used Date Smoking Tobacco: Never Smokeless Tobacco: Never Sex and Gender Information Value Date Recorded Sex Assigned at Not on file Gender Identity Not on file Sexual Orientation Not on file documented as of this encounter Last Filed Vital Signs Vital Sign Reading Time Taken Comments Blood Pressure 145/82 03/07/2020 8:50 AM EDT Pulse 89 03/07/2020 8:50 AM EDT Temperature 36.1 ??C (97 ??F) 03/07/2020 8:50 AM EDT Respiratory Rate 18 03/07/2020 8:50 AM EDT Oxygen Saturation 97% 03/07/2020 8:50 AM EDT Inhaled Oxygen Concentration - - Weight 123.8 kg (273 lb) 03/07/2020 8:50 AM EDT Height 176 cm (5' 9.29) 03/07/2020 8:50 AM EDT Body Mass Index 39.98 03/07/2020 8:50 AM EDT documented in this encounter Progress Notes * Shon Schneider MD - 03/07/2020 9:00 AM EDT Subjective: Patient ID: Monica Jaramillo [...] Biopsy of mediastinal mass 03/29 Path ([facility] review) - Mediastinum, mass, biopsy: 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 [facility] - CONSULT SLIDES FROM [facility]; [place], [place]: A. MEDIASTINUM, MASS, BIOPSY ([id number]; 03/22/2017): ? 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 ?Immunohistochemistry performed at the outside institution and reviewed at [facility] demonstrates the following staining profile in lesional cells: ? Positive - AE1/AE3, p40, PAX8, CD117, CD5(multifocal), CK7(scattered cells), synaptophysin, chromogranin ? Negative - CK20, TTF-1, GATA3, CD34 ? The immunohistochemical profile supports the above diagnosis. ? Ki67 (MIB-1) proliferation index performed at the referring institution and reviewed at [facility] is focally up to ~30%. NOTE: While diffuse synaptophysin and chromogranin expression is unusual for conventional thymic carcinoma, the overall histomorphology and immunophenotype is most in keeping with THYMIC SQUAMOUS CARCINOMA.?The extent of PAX8 and CD117 staining would be unusual for Nut carcinoma. B. MEDIASTINUM, ANTERIOR, 4.5 CM, ULTRASOUND GUIDED FINED NEEDLE ASPIRATION ([id number]; 03/22/17): The cytologic preparations were not reviewed [...] Second opinion with Dr. Roddy Vega in [place]. They reviewed the pathology and concurred they [...] with pembrolizumab L. CT c/a/p 11/06/19 ([facility] second read) - IMPRESSION 1. [...] a left breast nodule. Follow-up ultrasound suggested. 2. H/o atrial fibrillation 3. HTN 4. [...] is accompanied to clinic today by her hsuband Royce. Last week she began therapy with gemcitabineplus capecitabine. She has been feeling very well for the past week. The symptoms of SOB resolved. This felt better the night of chemotherapy. She did have some cough and was able to clear some sputum. No nausea or vomiting. No stomatitis or diarrhea. No fevers or chills. Her bowels are regular. Nochest pain and no pain at all. The LE edema is better. Soc Hx: , lives in [place], [place] Tob - Never Etoh - rare [...] is normal. Vitals reviewed. Labs: WBC/ANC - 2.01/1750, Hgb/Hct - 12.9/41, Plts - 132,000. BUN/Cr - 14/0.7. Mg - 1.5. Lytes and LFTs o/w unremarkable. LDH - 432 ([id number]) CT reviewed, report above Assessment and Plan: Ms. Jaramillo is a [...] mg/day, 2 weeks followed by one w grindstone off, with cycles repeated every three weeks. [...] also spoke with Dr. Shon Ramon at [facility] [place]. He agrees that gemcitabine plus capecitabine is very reasonable and that he would consider using lenvatinib in the next line setting. She began therapy with gemcitabine plus capecitabine on 02/29/20. She tolerated that well and is feeling very well. She will receive day 8 gemcitabine today and we will see her in two weeks. Due to increased SOB, a chest CT was done on 03/06/20 and is stable compared with the exam done 4 weeks earlier. The SOB has resolved. It was better the night of the chemotherapy and I wonder if it improved due to the steroids. Will continue to monitor. documented in this encounter Plan of Treatment Upcoming Encounters Date Type Department Care Team (Late st Contact Info) Description 02/24/2024 9:00 AM EDT Office Visit Hematology/Oncology at [address] [phone] Shon Schneider MD [facility] [place] [place] [address] [address] HEMATOLOGY AND ONCOLOGY [place], [place] [address] 02/24/2024 9:30 AM EDT Infusion Hematology Oncology at [address] [phone] 03/02/2024 11:00 AM EDT Office Visit Hematology/Oncology at [address] [phone] Shon Schneider MD [facility] [place] [address] [address] HEMATOLOGY [place] [address] 03/02/2024 12:30 PM EDT Infusion Hematology Oncology at [address] [phone] 03/09/2024 10:00 AM EDT Office Visit Hematology/Oncology at [address] [phone] Shon Schneider MD [facility] [place] [place] [address] Ciara Pitts APRN [address] [place] [address] DR HEMATOLOGY AND ONCOLOGY [place], [place] [phone] 03/09/2024 10:30 AM EDT Infusion Hematology Oncology at [address] [phone] documented as of this encounter [...] thymus documented in this encounter Care Teams Vehicle Dynamics Engineer Relationship Specialty Start Date End Date Jerzy Vidal MD [address] [place] [address] [place] [address] PCP - General [facility] Medicine 12/04/18 documented as of this encounter
--- OUTSIDE RECORDS SUMMARY | 2024-02-24 01:21 | XMS_ITS | Encounter Summary ---
Author Organization [facility] Address [facility] [place] [address] Care Team Providers Care Compressor Station Chief Engineer Name Role Phone Jerzy Vidal MD Primary Care Provider [phone] Reason for Visit * Reason Comments Chemotherapy Gemcitabine, Cycle 5 , Day 1 * Treatment/Therapy Plan Authorization (Routine) - Closed Specialty Diagnoses / Procedures Referred By Franklyn t Referred To Contact Diagnoses Thymic carcinoma Procedures TC GEMCITABINE HCL, 200MG, INJECTION (GEMZAR) Shon Schneider MD [facility] [place] [address] St Hem Onc Infusion [address] [place] [phone] Referral ID Status Reason Start Date Expiration Date Visits Re quested Visits Authorized [id number] Closed 02/28/2020 02/28/2021 18 18 Encounter Details Date Type Department Care Team (Late st Contact Info) Description 05/23/2020 9:30 AM EST Infusion Hematology Oncology at [address] [phone] Thymic carcinoma Social History Tobacco Use Types Packs/Day Years Used Date Smoking Tobacco: Never Smokeless Tobacco: Never Sex and Gender Information Value Date Recorded Sex Assigned at Not on file Gender Identity Not on file Sexual Orientation Not on file documented as of this encounter Progress Notes * Kush Calvo RN - 05/23/2020 9:30 AM EST INFUSION THERAPY ADMINISTRATION NOTES DIAGNOSIS: Thymic Cancer CYCLE #5: Day 1 REASON FOR VISIT: Gemcitabine infusion SUBJECTIVE: Monica Jaramillo offers no complaints. OBJECTIVE: VSS. Seen by provider. Ready to treat. LAB DATA: WNL & reviewed by provider. IV ACCESS: Mediport Pre administration: Chemotherapy orders independently verified for drug name, route, and dosage per patient's height, weight and BSA by KUSH CALVO RN and on-site [facility]. REACTIONS (DESCRIPTION, TIME, INTERVENTION AND EFFECTIVENESS) none ASSESSMENT Monica Jaramillo was awake, alert and she tolerated treatment well. PLAN Return to clinic per protocol. documented in this encounter Plan of Treatment Upcoming Encounters Date Type Department Care Team (Late st Contact Info) Description 02/24/2024 9:00 AM EDT Office Visit Hematology/Oncology at [address] [phone] Shon Schneider MD [facility] [place] [place] [address] H[place]ATOLOGY [place] [address] 02/24/2024 9:30 AM EDT Infusion Hematology Oncology at [address] [phone] 03/02/2024 11:00 AM EDT Office Visit Hematology/Oncology at [address] [phone] Shon Schneider MD [facility] [place] [address] HEMATOLOGY [place] [address] 03/02/2024 12:30 PM EDT Infusion Hematology Oncology at [address] [phone] 03/09/2024 10:00 AM EDT Office Visit Hematology/Oncology at [address] [phone] Shon Schneider MD [facility] [place] [address] Ciara Pitts APRN [address] [place] [address] DR HEMATOLOGY AND ONCOLOGY [place], [place] [address] 03/09/2024 10:30 AM EDT Infusion Hematology Oncology at [address] [phone] documented as of this encounter Goals Goal [...] 10 mg, Intravenous, ONCE, 1 dose, On Tue05/23/20 at 1000 Given 05/23/2020 9:53 AM EST 10 mg GEMcitabine 2,400 mg in sodium chloride 0.9% 313.12 mL infusion 2,400 mg, Intravenous, ONCE, 1 dose, On Tue05/23/20 at 1100, Administer over 30 Minutes, Warning Vesicant/Irritant Medication Dose Ordered = 2440 mg (1000 mg/m2). Pharmacist rounded dose per procedure. New Bag 05/23/2020 10:33 AM EST 2,400 mg 626 mL/hr heparin (pf) (porcine) (100 units/mL) flush 5 mL syringe 500 Units 500 Units, Intravenous, ONCE PRN, Starting on Tue05/23/20 at 0940, Until Tue05/23/20 at 1310, Line Care, Refer to Intravenous (IV) Procedure: Accessing Implanted Vascular Access Devices (654) procedure and/or Intravenous (IV) Job Aid: Adult Flushing & Catheter Care (8685) job aid for additional information regarding guidelines and administration., Routine Given 05/23/2020 11:06 AM EST 500 Units ondansetron (Zofran) tablet 8 mg 8 mg, Oral, ONCE, 1 dose, On Tue05/23/20 at 1000, Administer prior to chemotherapy, Routine Given 05/23/2020 9:52 AM EST 8 mg sodium chloride 0.9 % (flush) flush 5-20 mL 5-20 mL, Intravenous, EVERY 1 MIN PRN, Starting on Tue05/23/20 at 0940, Until Tue05/23/20 at 1310, Line Care, Flush pertains to all indwelling lines. Flush per protocol found in the job aid using the link provided on this medication record. Refer to Intravenous (IV) Job Aid: Adult Flushing & Catheter Care (5668) job aid for additional information regarding guidelines and administration., Routine Given 05/23/2020 11:06 AM EST 20 mLs documented in this encounter Care Teams Compressor Station Chief Engineer Relationship Specialty Start Date End Date Jerzy Vidal MD [address] [place] [address] [place] [address] PCP - [facility] 12/04/18 documented as of this encounter
--- OUTSIDE RECORDS SUMMARY | 2024-02-24 01:21 | XMS_ITS | Encounter Summary ---
Author Organization [facility] Address [facility] [place] [address] Care Team Providers Care Experimental Rocket Sled Mechanic Name Role Phone Jerzy Vidal MD Primary Care Provider [phone] Reason for Visit * Reason Comments Chemotherapy Cycle 1, Day 8 Gemci tabine * Treatment/Therapy Plan Authorization (Routine) - Closed Specialty Diagnoses / Procedures Referred By Franklyn del rio Referred To Contact Diagnoses Thymic carcinoma Procedures TC GEMCITABINE HCL, 200MG, INJECTION (GEMZAR) Shon Schneider MD [facility] [place] [address] Stj Hem Onc Infusion [address] [place] [phone] Referral ID Status Reason Start Date Expiration Date Visits Re quested Visits Authorized [id number] Closed 02/28/2020 02/28/2021 18 18 Encounter Details Date Type Department Care Team (Late st Contact Info) Description 03/07/2020 9:30 AM EDT Infusion Hematology Oncology at [address] [phone] Thymic carcinoma Social History Tobacco Use Types Packs/Day Years Used Date Smoking Tobacco: Never Smokeless Tobacco: Never Sex and Gender Information Value Date Recorded Sex Assigned at Not on file Gender Identity Not on file Sexual Orientation Not on file documented as of this encounter Progress Notes * Boaz Amos RN - 03/07/2020 9:30 AM EDT INFUSION THERAPY ADMINISTRATION NOTES DIAGNOSIS: Thymic Cancer CYCLE #1: Day 8 REASON FOR VISIT: Gemcitabine (+ oral Capecitabine) SUBJECTIVE: Monica Jaramillo offers no complaints. OBJECTIVE: VSS. Seen by provider. Ready to treat. LAB DATA: Done 03/06/20 at [facility]- WBC 2.8, Hgb 12.9, Hct 41.0, PLT 132k, ANC 1.75, BUN 14, Cr 0.70, Mag 1.5 IV ACCESS: Port accessed without difficulty, flushes readily with brisk blood return. Port flushed with 20cc NS and 500 units Heparin then de-accessed after completion of treatment. Pre administration: Chemotherapy orders independently verified for drug name, route, and dosage per patient's height, weight and BSA by Boaz Amos, SEBASTIAN and Bryce Hawley [facility]. REACTIONS (DESCRIPTION, TIME, INTERVENTION AND EFFECTIVENESS) none ASSESSMENT Monica Jaramillo was awake, alert and she tolerated treatment well. PLAN Return to clinic per protocol. documented in this encounter Plan of Treatment Upcoming Encounters Date Type Department Care Team (Late st Contact Info) Description 02/24/2024 9:00 AM EDT Office Visit Hematology/Oncology at [address] [phone] Shon Schneider MD [facility] [place] [place] [address] Ciara Pitts APRN [address] [place] [address] DR HEMATOLOGY [place] [address] 02/24/2024 9:30 AM EDT Infusion Hematology Oncology at [address] [phone] 03/02/2024 11:00 AM EDT Office Visit Hematology/Oncology at [address] [phone] Shon Schneider MD [facility] [place] [address] [address] HEMATOLOGY AND ONCOLOGY [place], [place] [id number] 03/02/2024 12:30 PM EDT Infusion Hematology Oncology at [address] [phone] 03/09/2024 10:00 AM EDT Office Visit Hematology/Oncology at [address] [phone] Shon Schneider MD [facility] [place] [address] [address] HEMATOLOGY AND ONCOLOGY [place], [place] [id number] 03/09/2024 10:30 AM EDT Infusion Hematology Oncology at [address] [phone] documented as of this [...] 10 mg, Intravenous, ONCE, 1 dose, On Tue03/07/20 at 1000 Given 03/07/2020 10:07 AM EDT 10 mg GEMcitabine 2,400 mg in sodium chloride 0.9% 313.1579 mL chemo infusion 2,400 mg, Intravenous, ONCE, 1 dose, On Tue03/07/20 at 1100, Administer over 30 Minutes, Warning Vesicant/Irritant Medication Dose Ordered = 2440 mg (1000 mg/m2). Pharmacist rounded dose per procedure. New Bag 03/07/2020 10:36 AM EDT 2,400 mg 626 mL/hr heparin, porcine 100 unit/mL flush 500 Units 500 Units, Intravenous, ONCE PRN, Starting on Tue03/07/20 at 0941, Until Tue03/07/20 at 1318, Line Care, Refer to Intravenous (IV) Procedure: Accessing Implanted Vascular Access Devices (654) procedure and/or Intravenous (IV) Job Aid: Adult Flushing & Catheter Care (5284) job aid for additional information regarding guidelines and administration., Routine Given 03/07/2020 11:11 AM EDT 500 Units ondansetron (Zofran) tablet 8 mg 8 mg, Oral, ONCE, 1 dose, On Tue03/07/20 at 1000, Administer prior to chemotherapy, Routine Given 03/07/2020 10:06 AM EDT 8 mg sodium chloride 0.9 % (flush) flush 5-20 mL 5-20 mL, Intravenous, EVERY 1 MIN PRN, Starting on Tue03/07/20 at 0941, Until Tue03/07/20 at 1318, Line Care, Flush pertains to all indwelling lines. Flush per protocol found in the job aid using the link provided on this medication record. Refer to Intravenous (IV) Job Aid: Adult Flushing & Catheter Care (9187) job aid for additional information regarding guidelines and administration., Routine Given 03/07/2020 11:10 AM EDT 20 mLs documented in this encounter Care Teams Experimental Rocket Sled Mechanic Relationship Specialty Start Date End Date Jerzy Vdial MD [address] [place] [address] [place] [address] PCP - [facility] Medicine 12/04/18 documented as of this encounter
--- OUTSIDE RECORDS SUMMARY | 2024-02-24 01:21 | XMS_ITS | Encounter Summary ---
Author Organization [facility] Address [facility] [place] [address] Care Team Providers Care Court Stenographer Name Role Phone Jerzy Vidal MD Primary Care Provider [phone] Reason for Visit * Treatment/Therapy Plan Authorization (Routine) - Closed Specialty Diagnoses / Procedures Referred By Franklyn del rio Referred To Contact Diagnoses Thymic carcinoma Procedures TC GEMCITABINE HCL, 200MG, INJECTION (GEMZAR) Shon Schneider MD [facility] [place] [address] St Hem Onc Infusion [address] [place] [phone] Referral ID Status Reason Start Date Expiration Date Visits Re quested Visits Authorized [id number] Closed 02/28/2020 02/28/2021 18 18 Encounter Details Date Type Department Care Team (Late st Contact Info) Description 03/21/2020 11:30 AM EDT Infusion Hematology Oncology at [address] [phone] Thymic carcinoma Social History Tobacco Use Types Packs/Day Years Used Date Smoking Tobacco: Never Smokeless Tobacco: Never Sex and Gender Information Value Date Recorded Sex Assigned at Not on file Gender Identity Not on file Sexual Orientation Not on file documented as of this encounter Progress Notes * Kush Calvo RN - 03/21/2020 11:30 AM EDT INFUSION THERAPY ADMINISTRATION NOTES DIAGNOSIS: Thymic Cancer CYCLE #2: Day 1 REASON FOR VISIT: Gemcitabine infusion SUBJECTIVE: Monica Jaramillo offers no complaints. OBJECTIVE: VSS. Seen by provider. Ready to treat. LAB DATA: WNL & reviewed by Dr. Schneider. IV ACCESS: Mediport Pre administration: Chemotherapy orders independently verified for drug name, route, and dosage per patient's height, weight and BSA by KUSH CALVO RN and Bryce Hawley [facility]. REACTIONS (DESCRIPTION, TIME, INTERVENTION AND EFFECTIVENESS) none ASSESSMENT Monica Jaramillo was awake, alert and she tolerated treatment well. PLAN Return to clinic per protocol. documented in this encounter Plan of Treatment Upcoming Encounters Date Type Department Care Team (Late st Contact Info) Description 02/24/2024 9:00 AM EDT Office Visit Hematology/Oncology at [address] [phone] Shon Schneider MD [facility] [place] [address] [address] HEMATOLOGY AND ONCOLOGY [place], [place] [address] 02/24/2024 9:30 AM EDT Infusion Hematology Oncology at [address] [phone] 03/02/2024 11:00 AM EDT Office Visit Hematology/Oncology at [address] [phone] Shon Schneider MD [facility] [place] [address] HEMATOLOGY AND ONCOLOGY [place], [place] [address] 03/02/2024 12:30 PM EDT Infusion Hematology Oncology at [address] [phone] 03/09/2024 10:00 AM EDT Office Visit Hematology/Oncology at [address] [phone] Shon Schneider MD [facility] [place] [address] Ciara Pitts APRN [address] [place] [address] DR HEMATOLOGY AND ONCOLOGY [place], [place] [address] 03/09/2024 10:30 AM EDT Infusion Hematology Oncology at [address] [phone] documented as of this encounter Goals Goal [...] 10 mg, Intravenous, ONCE, 1 dose, On Tue03/21/20 at 1130 Given 03/21/2020 11:40 AM EDT 10 mg GEMcitabine 2,400 mg in sodium chloride 0.9% 313.1579 mL chemo infusion 2,400 mg, Intravenous, ONCE, 1 dose, On Tue03/21/20 at 1230, Administer over 30 Minutes, Warning Vesicant/Irritant Medication Dose Ordered = 2440 mg (1000 mg/m2). Pharmacist rounded dose per procedure. New Bag 03/21/2020 12:01 PM EDT 2,400 mg 626.3 mL/hr heparin, porcine 100 unit/mL flush 500 Units 500 Units, Intravenous, ONCE PRN, Starting on Tue03/21/20 at 1101, Until Tue03/21/20 at 1444, Line Care, Refer to Intravenous (IV) Procedure: Accessing Implanted Vascular Access Devices (654) procedure and/or Intravenous (IV) Job Aid: Adult Flushing & Catheter Care (2318) job aid for additional information regarding guidelines and administration., Routine Given 03/21/2020 12:34 PM EDT 500 Units ondansetron (Zofran) tablet 8 mg 8 mg, Oral, ONCE, 1 dose, On Tue03/21/20 at 1130, Administer prior to chemotherapy, Routine Given 03/21/2020 11:40 AM EDT 8 mg sodium chloride 0.9 % (flush) flush 5-20 mL 5-20 mL, Intravenous, EVERY 1 MIN PRN, Starting on Tue03/21/20 at 1101, Until Tue03/21/20 at 1444, Line Care, Flush pertains to all indwelling lines. Flush per protocol found in the job aid using the link provided on this medication record. Refer to Intravenous (IV) Job Aid: Adult Flushing & Catheter Care (9089) job aid for additional information regarding guidelines and administration., Routine Given 03/21/2020 12:34 PM EDT 20 mLs documented in this encounter Care Teams Court Stenographer Relationship Specialty Start Date End Date Jerzy Vidal MD [address] [place] [address] [place] [address] PCP - [facility] Medicine 12/04/18 documented as of this encounter
--- OUTSIDE RECORDS SUMMARY | 2024-02-24 01:21 | XMS_ITS | Encounter Summary ---
Author Organization [facility] Address [facility] [place] [address] Care Team Providers Care Induction Coordination Power Engineer Name Role Phone Jerzy Vidal MD Primary Care Provider [phone] Reason for Visit * Reason Comments Chemotherapy Cycle 1, Day 1 - Marianna citabine/Capecitabine * Treatment/Therapy Plan Authorization (Routine) - Closed Specialty Diagnoses / Procedures Referred By Franklyn del rio Referred To Contact Diagnoses Thymic carcinoma Procedures TC GEMCITABINE HCL, 200MG, INJECTION (GEMZAR) Shon Schneider MD [facility] [place] [address] Stj Hem Onc Infusion [address] [phone] Referral ID Status Reason Start Date Expiration Date Visits Re quested Visits Authorized [id number] Closed 02/28/2020 02/28/2021 18 18 Encounter Details Date Type Department Care Team (Late st Contact Info) Description 02/29/2020 1:00 PM EDT Infusion Hematology Oncology at [address] [phone] Thymic carcinoma Social History Tobacco Use Types Packs/Day Years Used Date Smoking Tobacco: Never Smokeless Tobacco: Never Sex and Gender Information Value Date Recorded Sex Assigned at Not on file Gender Identity Not on file Sexual Orientation Not on file documented as of this encounter Progress Notes * Ute Chacon RN - 02/29/2020 1:00 PM EDT INFUSION THERAPY ADMINISTRATION NOTES DIAGNOSIS: Thymic Cancer CYCLE #: Cycle 1, Day 1 - Gemcitabine and oral Capectabine REASON FOR VISIT: To receive chemotherapy. SUBJECTIVE: Monica Jaramillo offers no complaints. OBJECTIVE: VSS. Seen by provider. Ready to treat. LAB DATA: 02/28/20 - WBC - 6.2, H/H - 12.6/40.4, Plt Ct - 192, ANC - 4.69, BUN/CR - 10/0.70, Lytes wnl, MG++ - 1.2 (discussed magnesium replacement, refused at this time.) IV ACCESS: Port accessed without difficulty, flushes readily with brisk blood return. Pre administration: Chemotherapy orders independently verified for drug name, route, and dosage per patient's height, weight and BSA by Ute Chacon, SEBASTIAN and Bryce Hawley [facility]. REACTIONS (DESCRIPTION, TIME, INTERVENTION AND EFFECTIVENESS) none ASSESSMENT Monica Jaramillo was awake, alert and she tolerated treatment well. Port flushed with 20 cc's of NS and 500 units of heparin and de-accessed. Pt. chemo teaching instructions included: During clinic hours (8am-5pm Tuesday-Tuesday): pt. can call [phone] questions or concerns. After clinic hours (5pm-8am Tuesday-Tuesday and weekends) pt can call [phone] and ask for the purchasing assistant/oncologist addiction specialist. Monica Jaramillo verbalized understanding of potential chemotherapy side effects and home care including but not limited to- handwashing to prevent infection, signs and symptoms of low blood counts (fever, fatigue, bleeding), to call with a fever of 100.4 or greater, any significant constipation/diarrhea, importance of nutrition and fluid intake (drinking at least 32-64 ounces of non-caffeinated beverages/day), mouth care. Monica Jaramillo verbalized understanding of how to take prescription medications given for home useafter chemotherapy. Teaching sheets for gemcitabine and capecitabine reviewed. She is aware to callfor questions or concerns. PLAN Return to clinic in 1 week. documented in this encounter Plan of Treatment Upcoming Encounters Date Type Department Care Team (Late st Contact Info) Description 02/24/2024 9:00 AM EDT Office Visit Hematology/Oncology at [address] [phone] Shon Schneider MD [facility] [place] [address] Ciara Pitts [address] HEMATOLOGY AND ONCOLOGY [place], [place] [address] 02/24/2024 9:30 AM EDT Infusion Hematology Oncology at [address] [phone] 03/02/2024 11:00 AM EDT Office Visit Hematology/Oncology at [address] [phone] Shon Schneider MD [facility] [place] [address] Ciara Pitts [address] HEMATOLOGY AND ONCOLOGY [place], [place] [id number] 03/02/2024 12:30 PM EDT Infusion Hematology Oncology at [address] [phone] 03/09/2024 10:00 AM EDT Office Visit Hematology/Oncology at [address] [phone] Shon Schneider MD [facility] [place] [address] Ciara Pitts [address] HEMATOLOGY AND ONCOLOGY [place], [place] [address] 03/09/2024 10:30 AM EDT Infusion Hematology Oncology at [address] [phone] documented as of this encounter Goals Goal [...] 10 mg, Intravenous, ONCE, 1 dose, On Tue02/29/20 at 1415 Given 02/29/2020 2:08 PM EDT 10 mg GEMcitabine 2,400 mg in sodium chloride 0.9% 313.1579 mL chemo infusion 2,400 mg, Intravenous, ONCE, 1 dose, On Tue02/29/20 at 1430, Administer over 30 Minutes, Warning Vesicant/Irritant Medication Dose Ordered = 2440 mg (1000 mg/m2). Pharmacist rounded dose per procedure. New Bag 02/29/2020 2:20 PM EDT 2,400 mg 626 mL/hr heparin, porcine 100 unit/mL flush 500 Units 500 Units, Intravenous, ONCE PRN, Starting on Tue02/29/20 at 1302, Until Tue02/29/20 at 1711, Line Care, Refer to Intravenous (IV) Procedure: Accessing Implanted Vascular Access Devices (934) procedure and/or Intravenous (IV) Job Aid: Adult Flushing & Catheter Care (5758) job aid for additional information regarding guidelines and administration., Routine Given 02/29/2020 2:55 PM EDT 500 Units ondansetron (Zofran) tablet 8 mg 8 mg, Oral, ONCE, 1 dose, On Tue02/29/20 at 1330, Administer prior to chemotherapy, Routine Given 02/29/2020 1:23 PM EDT 8 mg sodium chloride 0.9 % (flush) flush 5-20 mL 5-20 mL, Intravenous, EVERY 1 MIN PRN, Starting on Tue02/29/20 at 1302, Until Tue02/29/20 at 1711, Line Care, Flush pertains to all indwelling lines. Flush per protocol found in the job aid using the link provided on this medication record. Refer to Intravenous (IV) Job Aid: Adult Flushing & Catheter Care (4426) job aid for additional information regarding guidelines and administration., Routine Given 02/29/2020 2:55 PM EDT 20 mLs documented in this encounter Care Teams Induction Coordination Power Engineer Relationship Specialty Start Date End Date Jerzy Vidal MD [address] [place] [address] [place] [address] PCP - [facility] Medicine 12/04/18 documented as of this encounter
--- OUTSIDE RECORDS SUMMARY | 2024-02-24 01:21 | XMS_ITS | Encounter Summary ---
Author Organization [facility] Address [facility] [place] [address] Care Team Providers Care Business Test Analyst Name Role Phone Jerzy Vidal MD Primary Care Provider [phone] Encounter Details Date Type Department Care Team (Late st Contact Info) Description 02/29/2020 Telephone Hematology/Oncology at [address] [phone] Dorian Esparza Social History Tobacco Use Types [...] AM EDT Office Visit Hematology/Oncology at [address] [phone] Shon Schneider MD [facility] [place] [address] Ciara Pitts APRN [address] [place] [address] DR HEMATOLOGY AND ONCOLOGY [place], [place] [id number] 02/24/2024 9:30 AM EDT Infusion Hematology Oncology at [address] [phone] 03/02/2024 11:00 AM EDT Office Visit Hematology/Oncology at [address] [phone] Shon Schneider MD [facility] [place] [address] [address] HEMATOLOGY AND ONCOLOGY [place], [place] [id number] 03/02/2024 12:30 PM EDT Infusion Hematology Oncology at [address] [phone] 03/09/2024 10:00 AM EDT Office Visit Hematology/Oncology at [address] [phone] Shon Schneider MD [facility] [place] [address] [address] HEMATOLOGY AND ONCOLOGY [place], [place] [id number] 03/09/2024 10:30 AM EDT Infusion Hematology Oncology at [address] [phone] documented as of this encounter Goals Goal [...] on filedocumented in this encounter Care Teams Business Test Analyst Relationship Specialty Start Date End Date Jerzy Vidal MD [address] [place] [address] [place] [address] PCP - [facility] Medicine 12/04/18 documented as of this encounter
--- OUTSIDE RECORDS SUMMARY | 2024-02-24 01:21 | XMS_ITS | Encounter Summary ---
Author Organization [facility] Address [facility] [place] [address] Care Team Providers Care Electric Stop Installer Name Role Phone Jerzy Vidal MD Primary Care Provider [phone] Encounter Details Date Type Department Care Team (Late st Contact Info) Description 04/18/2020 10:00 AM EST Office Visit Hematology/Oncology at [address] [phone] Shon Schneider MD [facility] [place] [address] Ivory Flynn, EUGENIO [address] [place] [address] DR HEMATOLOGY ONCOLOGY [place], [place] [id number] Thymic carcinoma Social History Tobacco Use Types Packs/Day Years Used Date Smoking Tobacco: Never Smokeless Tobacco: Never Sex and Gender Information Value Date Recorded Sex Assigned at Not on file Gender Identity Not on file Sexual Orientation Not on file documented as of this encounter Last Filed Vital Signs Vital Sign Reading Time Taken Comments Blood Pressure 136/85 04/18/2020 10:23 AM EST Pulse 82 04/18/2020 10:23 AM EST Temperature 36.4 ??C (97.6 ??F) 04/18/2020 1 0:23 AM EST Respiratory Rate 18 04/18/2020 10:2 3 AM EST Oxygen Saturation 98% 04/18/2020 10: 23 AM EST Inhaled Oxygen Concentration - - Weight 126.7 kg (279 lb 6.4 oz) 020 10:23 AM EST Height 176 cm (5' 9.29) 04/18/2020 10: 23 AM EST Body Mass Index 40.91 04/18/2020 10:23 AM EST documented in this encounter Progress Notes * Ivory Flynn, LOGISTICS INTERN - 04/18/2020 10:00 AM EST Subjective: Patient ID: Monica [...] effusion with compression atelectasis. ?? transferred to [facility] for further evaluation and workup [...] B. Biopsy of mediastinal mass 03/29 Path ([facility] [place] - Mediastinum, mass, biopsy: 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 ?? [facility] - CONSULT SLIDES FROM [facility]; [place], [place]: A. MEDIASTINUM, MASS, BIOPSY ([id number]; 03/22/2017): ? 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 ?Immunohistochemistry performed at the outside institution and reviewed at [facility] demonstrates the following staining profile in lesional cells: ? Positive - AE1/AE3, p40, PAX8, CD117, CD5(multifocal), CK7(scattered cells), synaptophysin, chromogranin ? Negative - CK20, TTF-1, GATA3, CD34 ? The immunohistochemical profile supports the above diagnosis. ? Ki67 (MIB-1) proliferation index performed at the referring institution and reviewed at [facility] is focally up to ~30%. NOTE: While diffuse synaptophysin and chromogranin expression is unusual for conventional thymic carcinoma, the overall histomorphology and immunophenotype is most in keeping with THYMIC SQUAMOUS CARCINOMA.?The extent of PAX8 and CD117 staining would be unusual for Nut carcinoma. B. MEDIASTINUM, ANTERIOR, 4.5 CM, ULTRASOUND GUIDED FINED NEEDLE ASPIRATION ([id number]; 03/22/17): The cytologic preparations were not reviewed [...] opinion with Dr. Roddy Vega in [place]. ??They reviewed the pathology and concurred they [...] therapy with pembrolizumab L. CT c/a/p 11/06/19 ([facility] [place] read) - IMPRESSION 1. ??Worsening left-sided [...] 60-65%). ? 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 ?? Fam Hx: No h/o cancer INTERVAL HPI 04/18/20 Monica Jaramillo is a 64 yo female with stage IV thymic carcinoma diagnosed in 03/29. (Refer to extensive history summarized above.) Monica returns to the [facility] oncology clinic with judith Crane today for [...] fever, chills, new cough or chest pain. Allergies Allergen Reactions ??? Carboplatin ??? Penicillins [...] Negative. Respiratory: Positive for shortness of breath. Mild with exertion Cardiovascular: Negative for chest pain and palpitations. Gastrointestinal: Negative for constipation and diarrhea. Positive for increased gassiness/bloating Genitourinary: Negative. Musculoskeletal: Negative. Skin: Negative for color change and rash. Neurological: Negative for dizziness, numbness and headaches. Hematological: Negative. Psychiatric/Behavioral: The patient is nervous/anxious. Increase anxiety about COVID restrictions limiting 's presence Objective: Physical Exam Constitutional: General: She is [...] distress. Breath sounds: Normal breath sounds. No wheezing. Abdominal: General: Bowel sounds are normal. Palpations: [...] Mood normal. Thought Content: Thought content normal. Comments: A little anxious regarding not having spouse in visits due to COVID BP 136/85 (Patient Position: Sitting) Pulse 82 Temp 36.4 ??C (97.6 ??F) (Temporal) Resp 18 Ht 176 cm (5' 9.29) Wt 126.7 kg (279 lb 6.4 oz) SpO2 98% BMI 40.91 kg/m?? LABS /15/20 WBC 2.9; ANC 1.57; H/H 11.9/37.7; PLT 247; BUN 11; CREAT 0.50; CA++10.1; MAG 1.5; BILI 0.7; ALK PHOS 62; ALT 25; AST 37. LABS 04/17/20 WBC 2.4; ANC 1.18; H/H 10.6/ 33.3; PLT 274; BUN 11; CREAT 0.60; BILI 0.9; ALK PHOS 62; ALT 23; AST 38.; CA++ 10.0 Assessment and Plan: Assessment: Monica Jaramillo is a 64 yo female with stage IV thymic carcinoma diagnosed in 03/29. (Refer to extensive history summarized above.) Monica returns to the [facility] oncology clinic with judith Crane today for evaluation and C2D8 treatment with Gemcitabine and oral Capecitabine 1000 mg bid days 1-14. Monica is tolerating the current Gemzar/Capecitabine regimen without much toxicity. She is not demonstrating any residual immunotherapy toxicity. We discussed the potential for immunotherapy to cause side effects after discontinuation. I reviewed labs with Monica and Royce. ANC parameter is 1.20 and Monica's ANC is 1.18. Given her tolerance and lack of toxicity, we will adjust ANC parameter to 1000 and proceed with therapy today. Plan: Proceed with C3D8 Gemzar/oral Capecitabine treatment. Restaging Chest CT before next visit. Encouraged to call with fever 100.4 or signs of infection. RTC 2 weeks for planned C4 Gemzar/Capecitabine. documented in this encounter Plan of Treatment Upcoming Encounters Date Type Department Care Team (Late st Contact Info) Description 02/24/2024 9:00 AM EDT Office Visit Hematology/Oncology at [address] [phone] Shon Schneider MD [facility] [place] [address] Ciara Pitts APRN [address] [place] [address] DR [place] [address] 02/24/2024 9:30 AM EDT Infusion Hematology Oncology at [address] [phone] 03/02/2024 11:00 AM EDT Office Visit Hematology/Oncology at [address] [phone] Shon Schneider MD [facility] [place] [address] [address] [place] [address] 03/02/2024 12:30 PM EDT Infusion Hematology Oncology at [address] [phone] 03/09/2024 10:00 AM EDT Office Visit Hematology/Oncology at [address] [phone] Shon Schneider MD [facility] [place] [address] [address] [place] [address] 03/09/2024 10:30 AM EDT Infusion Hematology Oncology at [address] [phone] documented as of this encounter Goals Goal [...] Priority Date/Time Associated Diagnosis Comments LAB SCAN 05/01/2020 12:00 AM EST documented in this encounter Results * SCAN DOC: LAB (05/01/2020 12:00 AM EST) Narrative 05/01/2020 12:00 AM EST Ordered by an unspecified provider. 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 documented in this encounter Care Teams Electric Stop Installer Relationship Specialty Start Date End Date Jerzy Vidal MD [address] [place] [address] [place] [address] PCP - [facility] 12/04/18 documented as of this encounter
--- OUTSIDE RECORDS SUMMARY | 2024-02-24 01:21 | XMS_ITS | Encounter Summary ---
[place] [address] Care Team Providers Care Accounts Payable Analyst Name Role Phone Jerzy Vidal MD Primary Care Provider [phone] Reason for Visit * Reason Comments Medication Refill Encounter Details Date Type Department Care Team (Late st Contact Info) Description 02/27/2020 Specialty [place] [address] Ivana Vanegas [facility] Social History Tobacco Use Types Packs/Day Years Used Date Smoking Tobacco: Never Smokeless Tobacco: Never Sex and Gender Information Value Date Recorded Sex Assigned at Not on file Gender Identity Not on file Sexual Orientation Not on file documented as of this encounter Progress Notes * Ivana Mcmahan [facility] - 02/27/2020 10:43 AM EDT Clinical Management Plan: Transfer of Care/Discharge Specialty Services Specialty Pharmacy Consultation; Ivana Mcmahan [facility] Comprehensive Medication Management (CMM) Monica Jaramillo [address] [place] [address] Telephone Information: Work Phone Not on file. Mobile Not on file. Is the patient transferring services to a different Specialty Pharmacy or discontinuing the medication? Transfer Medication: Capecitabine Reason for discontinuation or transfer: insurance mandate Approximate date of discontinuation or transfer: 02/27/20 Patient's response to therapy: to be determined after initial course Summary of services provided by [facility]: counseling, billing assistance Summary of on-going needs: follow up scheduled. RN to fax Rx to [facility] Referral for additional services (if applicable): NA Instructions provided to patient about discharge/transfer: yes - pt aware Provider aware of discontinuation or transfer: yes Patient understands no changes to current drug regimen were made at the appointment and [facility] (summary located at top of note) for provider review and follow up. Ivana Mcmahan RPH 02/27/20 10:44 AM documented in this encounter Plan of Treatment Upcoming Encounters Date Type Department Care Team (Late st Contact Info) Description 02/24/2024 9:00 AM EDT Office Visit Hematology/Oncology at [address] [phone] Shon Schneider MD [facility] [address] Ciara Pitts [address] [place]ATOLOGY [place] [address] 02/24/2024 9:30 AM EDT Infusion Hematology Oncology at [address] [phone] 03/02/2024 11:00 AM EDT Office Visit Hematology/Oncology at [address] [phone] Shon Schneider MD [facility] [place] [address] Ciara Pitts [address] HEMATOLOGY AND ONCOLOGY [place], [place] [address] 03/02/2024 12:30 PM EDT Infusion Hematology Oncology at [address] [phone] 03/09/2024 10:00 AM EDT Office Visit Hematology/Oncology at [address] [phone] Shon Schneider MD [facility] [place] [address] Ciara Pitts APRN [address] [place] [address] DR HEMATOLOGY AND ONCOLOGY [place], [place] [id number] 03/09/2024 10:30 AM EDT Infusion Hematology Oncology at [address] [phone] documented as of this encounter Goals Goal Patient Goal Type Associated Problems Recent Progress Patient-Stated? Author DH Home Medication Compliance and Understanding Patient Facing Action Plan On track( 019 3:22 PM EST) No Ivana Vanegas, [facility] Note: Remain 95% or better adherent to chemotherapy without severe side effects as assessed by days supply and patient reported adverse events at each refill documented as of this encounter Visit Diagnoses Not on filedocumented in this encounter Care Teams Accounts Payable Analyst Relationship Specialty Start Date End Date Jerzy Vidal MD [address] [place] [address] [place] [address] PCP - [facility] Medicine 12/04/18 documented as of this encounter
--- OUTSIDE RECORDS SUMMARY | 2024-02-24 01:21 | XMS_ITS | Encounter Summary ---
Author Organization [facility] [place] [address] Care Team Providers Care Supervisor Epoxy Fabrication Name Role Phone Jerzy Vidal MD Primary Care Provider [phone] Encounter Details Date Type Department Care Team (Late st Contact Info) Description 05/01/2020 Orders Only Hematology/Oncology at [address] [phone] [address] HEMATOLOGY ONCOLOGY [place], [place] [id number] Social History Tobacco Use Types Packs/Day Years [...] AM EDT Office Visit Hematology/Oncology at [address] [phone] Shon Schneider MD [facility] [place] [address] [address] HEMATOLOGY AND ONCOLOGY [place], [place] [id number] 02/24/2024 9:30 AM EDT Infusion Hematology Oncology at [address] [phone] 03/02/2024 11:00 AM EDT Office Visit Hematology/Oncology at [address] [phone] Shon Schneider MD [facility] [place] [address] [address] HEMATOLOGY AND ONCOLOGY [place], [place] [address] 03/02/2024 12:30 PM EDT Infusion Hematology Oncology at [address] [phone] 03/09/2024 10:00 AM EDT Office Visit Hematology/Oncology at [address] [phone] Shon Schneider MD [facility] [place] [address] [address] HEMATOLOGY [place] [address] 03/09/2024 10:30 AM EDT Infusion Hematology Oncology at [address] [phone] documented as of this encounter Goals Goal [...] on filedocumented in this encounter Care Teams Supervisor Epoxy Fabrication Relationship Specialty Start Date End Date Jerzy Vidal MD [address] [place] [address] [place] [address] PCP - [facility] Medicine 12/04/18 documented as of this encounter
--- OUTSIDE RECORDS SUMMARY | 2024-02-24 01:21 | XMS_ITS | Encounter Summary ---
[place] [address] Care Team Providers Care Fiscal Services Manager Name Role Phone Jerzy Vidal MD Primary Care Provider [phone] Reason for Visit * Reason Comments Prior Authorization Capecitabine 500 mg tablets Encounter Details Date Type Department Care Team (Late st Contact Info) Description 02/25/2020 Specialty [place] [address] Ines Middleton Social History Tobacco Use Types Packs/Day Years Used Date Smoking Tobacco: Never Smokeless Tobacco: Never Sex and Gender Information Value Date Recorded Sex Assigned at Not on file Gender Identity Not on file Sexual Orientation Not on file documented as of this encounter Progress Notes * Ines Midldeton - 02/25/2020 10:59 AM EDT [facility], Prior Authorization Approval Medication Name: CAPECITABINE 500 MG TABLET Medication ID: [id number] Fillable at [facility]: Yes Approval Dates: 02/25/2020 to 02/24/2021 Insurance requirements/notes: Patient must fill through [facility] for future refills. Other Notes: None Case/Reference #: [id number] Approval notification Received via: Telephone Copay: $0.00 Copay assistance: None Copay Notes: Insurance mandated Pharmacy: [facility] Pharmacy staff will be reaching out to the patient to inform them of their medication's approval [facility]. If applicable, a pharmacist will speak with the patient to offer our specialty pharmacy services and to arrange delivery of their medication. [facility], Medication Prior Authorization Patient: Monica Jaramillo Patient : 1955 Patient Address: [address] [address] (home) Medication Name: CAPECITABINE 500 MG TABLET Medication ID: [id number] Patient Location: [facility] HEM ONC OFFICE Patient Location Comment: Subscriber Insurance: [employer] 2013 Subscriber Insurance Comment: Fax: Physician: SHON COATES Physician Comment: Sent Via: Telephone Laird: Ref/Case/PA#: [id number] Medication Strength Frequency Requested: Capecitabine 500 mg Take 1000 mg twice daily for 14 days followed by 7 days off Qty/Day Supply: New Start: New to Therapy Diagnosis & ICD-10 Code: Malignant neoplasm of thymus (C37) Patient Notified: No Submission Notes: None documented in this encounter Plan of Treatment Upcoming Encounters Date Type Department Care Team (Late st Contact Info) Description 02/24/2024 9:00 AM EDT Office Visit Hematology/Oncology at [address] [phone] Shon Coates MD [facility] DR ONCOLOGY [place], [place] [phone] Ciara Pitts[address] [place] [address] 02/24/2024 9:30 AM EDT Infusion Hematology Oncology at [address] [phone] 03/02/2024 11:00 AM EDT Office Visit Hematology/Oncology at [address] [phone] Shon Coates MD [facility] [place] [address] [address] HEMATOLOGY AND ONCOLOGY [place], [place] [address] 03/02/2024 12:30 PM EDT Infusion Hematology Oncology at [address] [phone] 03/09/2024 10:00 AM EDT Office Visit Hematology/Oncology at [address] [phone] Shon Coates MD [facility] [place] [address] [address] HEMATOLOGY AND ONCOLOGY [place], [place] [id number] 03/09/2024 10:30 AM EDT Infusion Hematology Oncology at [address] [phone] documented as of this encounter Goals Goal [...] on filedocumented in this encounter Care Teams Fiscal Services Manager Relationship Specialty Start Date End Date Jerzy Vidal MD [address] [place] [address] [place] [address] PCP - [facility] Medicine 12/04/18 documented as of this encounter
--- OUTSIDE RECORDS SUMMARY | 2024-02-24 01:21 | XMS_ITS | Encounter Summary ---
Author Organization [facility] [place] [address] Care Team Providers Care Damage Assessor Name Role Phone Jerzy Vidal MD Primary Care Provider [phone] Encounter Details Date Type Department Care Team (Late st Contact Info) Description 05/22/2020 Orders Only Hematology/Oncology at [address] [phone] [address] HEMATOLOGY ONCOLOGY [place], [place] [phone] Social History Tobacco Use Types Packs/Day Years [...] 9:00 AM EDT Office Visit Hematology/Oncology at [address] [phone] Shon Schneider MD [facility] [place] [address] HEMATOLOGY AND ONCOLOGY [place], [place] [id number] 02/24/2024 9:30 AM EDT Infusion Hematology Oncology at [address] [phone] 03/02/2024 11:00 AM EDT Office Visit Hematology/Oncology at [address] [phone] Shon Schneider MD [facility] [place] [address] [address] HEMATOLOGY AND ONCOLOGY [place], [place] [address] 03/02/2024 12:30 PM EDT Infusion Hematology Oncology at [address] [phone] 03/09/2024 10:00 AM EDT Office Visit Hematology/Oncology at [address] [phone] Shon Schneider MD [facility] [place] [address] [address] HEMATOLOGY [place] [address] 03/09/2024 10:30 AM EDT Infusion Hematology Oncology at [address] [phone] documented as of this encounter Goals Goal [...] on filedocumented in this encounter Care Teams Damage Assessor Relationship Specialty Start Date End Date Jerzy Vidal MD [address] [place] [address] [place] [address] PCP - [facility] Medicine 12/04/18 documented as of this encounter
--- OUTSIDE RECORDS SUMMARY | 2024-02-24 01:21 | XMS_ITS | Encounter Summary ---
Author Organization [facility] Address [facility] [place] [address] Care Team Providers Care Entry Table Operator Name Role Phone Jerzy Vidal MD Primary Care Provider [phone] Encounter Details Date Type Department Care Team (Late st Contact Info) Description 03/28/2020 11:00 AM EDT Office Visit Hematology/Oncology at [address] [phone] Shon Schneider MD [facility] [place] [address] Ivory Flynn, PROFESSOR OF GERMAN [address] [place] [address] DR HEMATOLOGY ONCOLOGY [place], [place] [id number] Thymic carcinoma Social History Tobacco Use Types Packs/Day Years Used Date Smoking Tobacco: Never Smokeless Tobacco: Never Sex and Gender Information Value Date Recorded Sex Assigned at Not on file Gender Identity Not on file Sexual Orientation Not on file documented as of this encounter Last Filed Vital Signs Vital Sign Reading Time Taken Comments Blood Pressure 125/83 03/28/2020 11:02 AM EDT Pulse 79 03/28/2020 11:02 AM EDT Temperature 36.8 ??C (98.3 ??F) 03/28/2020 1 1:02 AM EDT Respiratory Rate 20 03/28/2020 11:0 2 AM EDT Oxygen Saturation 97% 03/28/2020 11: 02 AM EDT Inhaled Oxygen Concentration - - Weight 124.4 kg (274 lb 4.8 oz) 020 11:02 AM EDT Height 176 cm (5' 9.29) 03/28/2020 11: 02 AM EDT Body Mass Index 40.17 03/28/2020 11:02 AM EDT documented in this encounter Progress Notes * Ivory Flynn, PROFESSOR OF GERMAN - 03/28/2020 11:00 AM EDT Subjective: Patient ID: Monica [...] effusion with compression atelectasis. ?? transferred to [facility] [place] for further evaluation and workup [...] review - CONSULT SLIDES FROM [facility]; [place], [place]: A. MEDIASTINUM, MASS, BIOPSY ([id number]; 03/22/2017): ? 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 ?Immunohistochemistry performed at the outside institution and reviewed at [facility] demonstrates the following staining profile in lesional cells: ? Positive - AE1/AE3, p40, PAX8, CD117, CD5(multifocal), CK7(scattered cells), synaptophysin, chromogranin ? Negative - CK20, TTF-1, GATA3, CD34 ? The immunohistochemical profile supports the above diagnosis. ? Ki67 (MIB-1) proliferation index performed at the referring institution and reviewed at [facility] is focally up to ~30%. NOTE: While diffuse synaptophysin and chromogranin expression is unusual for conventional thymic carcinoma, the overall histomorphology and immunophenotype is most in keeping with THYMIC SQUAMOUS CARCINOMA.?The extent of PAX8 and CD117 staining would be unusual for Nut carcinoma. B. MEDIASTINUM, ANTERIOR, 4.5 CM, ULTRASOUND GUIDED FINED NEEDLE ASPIRATION ([id number]; 03/22/17): The cytologic preparations were not reviewed [...] Second opinion with Dr. Roddy Vega in [place]. ??They reviewed the pathology and concurred they [...] 60-65%). ? 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 ?? Fam Hx: No h/o cancer ??INTERVAL HPI 03/28/20 Monica Jaramillo is a 64 yo female with stage IV thymic carcinoma diagnosed in 03/29. (Refer to extensive history summarized above.) Monica returns to the [facility] oncology clinic with judith Crane today for evaluation and C2D8 treatment with Gemcitabine and oral Capecitabine 1000 mg bid days 1-14. Monica reports doing overall well with cycle 2. She denies significant fatigue. She has noticed moreintestinal gas this cycle. This past week felt gassy and bloated, with upper abdominal pressure, especially sitting down. She states this would pass spontaneously. She reports bowels moving very regularly twice daily without diarrhea or constipation. She denies nausea, and says her appetite is good. She has not needed to use any Compazine. Monica denies fever, chills, or sweats. She denies difficulty breathing or new shortness or breath. She denies numbness and tingling or pain or burning on hands or feet. She denies rashes or itching. She has no new significant aches or pains. She confirms she is today beginning her second week of bid Capecitabine. Allergies Allergen Reactions ??? Carboplatin ??? Penicillins [...] Tablet ??? multivitamin (THERAGRAN) Tablet ??? prochlorperazine (COMPAZINE) 5 mg Tablet Review of Systems Constitutional: Negative [...] soft. Tenderness: There is no abdominal tenderness. Lymphadenopathy: Cervical: No cervical adenopathy. Upper Body: Right upper body: No supraclavicular adenopathy. Left upper body: No supraclavicular adenopathy. Skin: General: Skin is warm and dry. Findings: No erythema or rash. Neurological: Mental Status: She is alert and oriented to person, place, and time. Gait: Gait normal. Psychiatric: Mood and Affect: Mood normal. Thought Content: Thought content normal. BP 125/83 (Patient Position: Sitting) Pulse 79 Temp 36.8 ??C (98.3 ??F) (Temporal) Resp 20 Ht 176 cm (5' 9.29) Wt 124.4 kg (274 lb 4.8 oz) SpO2 97% BMI 40.17 kg/m?? LABS 03/27/20 WBC 2.9; ANC 1.57; H/H 11.9/37.7; PLT 247; BUN 11; CREAT 0.50; CA++10.1; MAG 1.5; BILI 0.7; ALK PHOS 62; ALT 25; AST 37. Assessment and Plan: Assessment: Monica Jaramillo is a 64 yo female with stage IV thymic carcinoma diagnosed in 03/29. (Refer to extensive history summarized above.) Monica returns to the [facility] oncology clinic with judith Crane today for evaluation and C2D8 treatment with Gemcitabine and oral Capecitabine 1000 mg bid days 1-14. Monica is tolerating the current Gemzar/Capecitabine regimen without much toxicity. She is not demonstrating any residual immunotherapy toxicity. We discussed the potential for immunotherapy to cause side effects after discontinuation. I reviewed labs with Monica and Royce. They meet parameters for treatment today. We discussed adding a3rd 400mg Magnesium tablet to Monica's daily regimen of 2 tablets for [place] 1.5 today. Monica states her Magnesium levels often tend to run low. Plan: Proceed with C2D8 Gemzar/oral Capecitabine treatment. RTC in 2 weeks for C3. Plan restaging CT after third cycle Gemzar/Capecitabine. documented in this encounter Plan of Treatment Upcoming Encounters Date Type Department Care Team (Late st Contact Info) Description 02/24/2024 9:00 AM EDT Office Visit Hematology/Oncology at [address] [phone] Shon Schneider MD [facility] [address] Ciara Pitts APRN [address] [place] [address] DR HEMATOLOGY AND ONCOLOGY [place], [place] [id number] 02/24/2024 9:30 AM EDT Infusion Hematology Oncology at [address] [phone] 03/02/2024 11:00 AM EDT Office Visit Hematology/Oncology at [address] [phone] Shon Schneider MD [facility] [place] [address] HEMATOLOGY AND ONCOLOGY [place], [place] [id number] 03/02/2024 12:30 PM EDT Infusion Hematology Oncology at [address] [phone] 03/09/2024 10:00 AM EDT Office Visit Hematology/Oncology at [address] [phone] Shon Schneider MD [facility] [place] [address] HEMATOLOGY AND ONCOLOGY [place], [place] [id number] 03/09/2024 10:30 AM EDT Infusion Hematology Oncology at [address] [phone] documented as of this encounter [...] thymus documented in this encounter Care Teams Entry Table Operator Relationship Specialty Start Date End Date Jerzy Vidal MD [address] [place] [address] [place] [address] PCP - General [facility] Medicine 12/04/18 documented as of this encounter
--- OUTSIDE RECORDS SUMMARY | 2024-02-24 01:21 | XMS_ITS | Encounter Summary ---
Author Organization [facility] [place] [address] Care Team Providers Care Zinc Plating Machine Operator Name Role Phone Jerzy Vidal MD Primary Care Provider [phone] Encounter Details Date Type Department Care Team (Late Contact Info) Description 03/19/2020 Orders Only Hematology [place] [phone] Shon Schneider MD [facility] [place] [address] Social History Tobacco Use Types Packs/Day Years [...] 9:00 AM EDT Office Visit Hematology/Oncology at [address] [phone] Shon Schneider MD [facility] [place] [address] Ciara Pitts APRN [address] [place] [address] [place] [address] 02/24/2024 9:30 AM EDT Infusion Hematology Oncology at [address] [phone] 03/02/2024 11:00 AM EDT Office Visit Hematology/Oncology at [address] [phone] Shon Schneider MD [facility] [place] [address] [address] HEMATOLOGY AND ONCOLOGY [place], [place] [address] 03/02/2024 12:30 PM EDT Infusion Hematology Oncology at [address] [phone] 03/09/2024 10:00 AM EDT Office Visit Hematology/Oncology at [address] [phone] Shon Schneider MD [facility] [place] [address] [address] [place] [address] 03/09/2024 10:30 AM EDT Infusion Hematology Oncology at [address] [phone] documented as of this encounter Goals Goal [...] filedocumented in this encounter Care Teams Zinc Plating Machine Operator Relationship Specialty Start Date End Date Jerzy Vidal MD [address] [place] [address] [place] [address] PCP - General [facility] Medicine 12/04/18 documented as of this encounter
--- OUTSIDE RECORDS SUMMARY | 2024-02-24 01:21 | XMS_ITS | Encounter Summary ---
Author Organization [facility] Address [facility] [place] [address] Care Team Providers Care Material Processor Name Role Phone Jerzy Vidal MD Primary Care Provider [phone] Encounter Details Date Type Department Care Team (Late st Contact Info) Description 05/09/2020 9:00 AM EST Office Visit Hematology/Oncology at [address] [phone] Shon Schneider MD [facility] [place] [address] Ivory Flynn, EUGENIO [address] [place] [address] DR HEMATOLOGY ONCOLOGY [place], [place] [id number] Thymic carcinoma Social History Tobacco Use Types Packs/Day Years Used Date Smoking Tobacco: Never Smokeless Tobacco: Never Sex and Gender Information Value Date Recorded Sex Assigned at Not on file Gender Identity Not on file Sexual Orientation Not on file documented as of this encounter Last Filed Vital Signs Vital Sign Reading Time Taken Comments Blood Pressure 129/61 05/09/2020 8:51 AM EST Pulse 64 05/09/2020 8:51 AM EST Temperature 36.3 ??C (97.3 ??F) 05/09/2020 8:51 AM ES T Respiratory Rate 18 05/09/2020 8:51 AM EST Oxygen Saturation 98% 05/09/2020 8:51 AM EST Inhaled Oxygen Concentration - - Weight 125 kg (275 lb 9.6 oz) 05/09/2020 8:51 AM EST Height 176 cm (5' 9.29) 05/09/2020 8:51 AM EST Body Mass Index 40.36 05/09/2020 8:51 AM EST documented in this encounter Progress Notes * Ivory Flynn, DIRECTOR OF STRATEGIC SALES - 05/09/2020 9:00 AM EST Subjective: Patient ID: Monica [...] effusion with compression atelectasis. ?? transferred to [facility] for further evaluation and workup and had [...] B. Biopsy of mediastinal mass 03/29 [place] [place] - Mediastinum, mass, biopsy: 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 ?? [facility] - CONSULT SLIDES FROM [facility]; [place], [place]: A. MEDIASTINUM, MASS, BIOPSY ([id number]; 03/22/2017): ? 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 ?Immunohistochemistry performed at the outside institution and reviewed at [facility] demonstrates the following staining profile in lesional cells: ? Positive - AE1/AE3, p40, PAX8, CD117, CD5(multifocal), CK7(scattered cells), synaptophysin, chromogranin ? Negative - CK20, TTF-1, GATA3, CD34 ? The immunohistochemical profile supports the above diagnosis. ? Ki67 (MIB-1) proliferation index performed at the referring institution and reviewed at [facility] is focally up to ~30%. NOTE: While diffuse synaptophysin and chromogranin expression is unusual for conventional thymic carcinoma, the overall histomorphology and immunophenotype is most in keeping with THYMIC SQUAMOUS CARCINOMA.?The extent of PAX8 and CD117 staining would be unusual for Nut carcinoma. B. MEDIASTINUM, ANTERIOR, 4.5 CM, ULTRASOUND GUIDED FINED NEEDLE ASPIRATION ([id number]; 03/22/17): The cytologic preparations were not reviewed [...] Second opinion with Dr. Roddy Vega in [place]. ??They reviewed the pathology and concurred they [...] therapy with pembrolizumab L. CT c/a/p 11/06/19 [place] [place] [...] 60-65%). ? 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 ?? Fam Hx: No h/o cancer INTERVAL HPI 04/18/20 Monica Jaramillo is a 64 yo female with stage IV thymic carcinoma diagnosed in 03/29. (Refer to extensive history summarized above.) Monica returns to the [facility] oncology clinic with judith Crane [...] new cough or chest pain. INTERVAL HPI 05/09/20 Monica Jaramillo is a 64 yo female with stage IV thymic carcinoma diagnosed in 03/29. (Refer to extensive history summarized above.) Monica returns to the [facility] oncology clinic alone today for evaluation and C4D8 treatment with Gemcitabine and oral Capecitabine 1000 mg bid days 1-14. I cooked all of Thanksgiving dinner yesterday. I felt great, states Monica today. She says her energy is good, and she has very little fatigue on this regimen. I get up in the morning and I just keep going. The main side effect she continues to notice as stomach rumbling and gassiness that seems to occur without regard to what or when she eats. She usually can relieve it with position changes. She notices she tends to hold fluid in her abdomen periodically and then it starts moving after a day or two. She denies any nausea, diarrhea, or constipation. Her bowels move regularly, and she denies heartburn or mouth sores. She denies redness, soreness or burning on palms or feet. Monica denies any new shortness of breath. She always has a little exertional shortness of breath. No cough. No chest pain. No new peripheral edema. No fever, no chills. She confirms she is 7 days into her 14-day on/7 day off Capecitabine regimen. Allergies Allergen Reactions ??? Carboplatin ??? Penicillins [...] spouse in visits due to COVID BP 129/61 (Patient Position: Sitting) Pulse 64 Temp 36.3 ??C (97.3 ??F) (Temporal) Resp 18 Ht 176 cm (5' 9.29) Wt 125 kg (275 lb 9.6 oz) SpO2 98% BMI 40.36 kg/m?? LABS 04/17/20 WBC 2.4; ANC 1.18; H/H 10.6/ 33.3; PLT 274; BUN 11; CREAT 0.60; BILI 0.9; ALK PHOS 62; ALT 23; AST 38.; CA++ 10.0 LABS 05/07/20 WBC 3.6; ANC 2.52; H/H 10.3/ 33.3; PLT 296; NA+ 139; K+ 4.5; BUN 11; CREAT 0.60; ALP 53; ALT 28: AST 34. Assessment and Plan: Assessment: Monica Jaramillo is a 64 yo female with stage IV thymic carcinoma diagnosed in 03/29. (Refer to extensive history summarized above.) Monica returns to the [facility] oncology clinic alone for evaluation and C4D8 treatment with Gemcitabine and oral Capecitabine 1000 mg bid days 1-14. Monica is tolerating the current Gemzar/Capecitabine regimen without much toxicity. She is having minor GI toxicity and does not seem to have any residual immunotherapy toxicities. We discussed the potential for immunotherapy to cause side effects after discontinuation. I reviewed labs with Monica, which meet treatment parameters. Plan: Proceed with C4D8 Gemzar/oral Capecitabine treatment today. RTC 2 weeks for C5D1 and visit. documented in this encounter Plan of Treatment Upcoming Encounters Date Type Department Care Team (Late st Contact Info) Description 02/24/2024 9:00 AM EDT Office Visit Hematology/Oncology at [address] [phone] Shon Schneider MD [facility] [place] [address] Ciara Pitts [address] [place] [address] 02/24/2024 9:30 AM EDT Infusion Hematology Oncology at [address] [phone] 03/02/2024 11:00 AM EDT Office Visit Hematology/Oncology at [address] [phone] Shon Schneider MD [facility] [place] [address] Ciara Pitts [address] [place] [address] 03/02/2024 12:30 PM EDT Infusion Hematology Oncology at [address] [phone] 03/09/2024 10:00 AM EDT Office Visit Hematology/Oncology at [address] [phone] Shon Schneider MD [facility] [place] [address] Ciara Pitts DIRECTOR OF STRATEGIC SALES [address] [place] [address] DR [place] [address] 03/09/2024 10:30 AM EDT Infusion Hematology Oncology at [address] [phone] documented as of this encounter Goals Goal [...] thymus documented in this encounter Care Teams Material Processor Relationship Specialty Start Date End Date Jerzy Vidal MD [address] [place] [address] [place] [address] PCP - [facility] Medicine 12/04/18 documented as of this encounter
--- OUTSIDE RECORDS SUMMARY | 2024-02-24 01:21 | XMS_ITS | Encounter Summary ---
Author Organization [facility] Address [facility] [place] [address] Care Team Providers Care Partner Alliance Manager Name Role Phone Jerzy Vidal MD Primary Care Provider [phone] Encounter Details Date Type Department Care Team (Late st Contact Info) Description 03/18/2020 Telephone Hematology/Oncology at [address] [phone] Dorian Esparza Social History Tobacco Use Types [...] AM EDT Office Visit Hematology/Oncology at [address] [phone] Shon Schneider MD [facility] [place] [address] Ciara Pitts APRN [address] [place] [address] DR HEMATOLOGY AND ONCOLOGY [place], [place] [phone] 02/24/2024 9:30 AM EDT Infusion Hematology Oncology at [address] [phone] 03/02/2024 11:00 AM EDT Office Visit Hematology/Oncology at [address] [phone] Shon Schneider MD [facility] [place] [address] HEMATOLOGY AND ONCOLOGY [place], [place] [id number] 03/02/2024 12:30 PM EDT Infusion Hematology Oncology at [address] [phone] 03/09/2024 10:00 AM EDT Office Visit Hematology/Oncology at [address] [phone] Shon Schneider MD [facility] [place] [place] [address] [address] HEMATOLOGY AND ONCOLOGY [place], [place] [phone] 03/09/2024 10:30 AM EDT Infusion Hematology Oncology at [address] [phone] documented as of this encounter Goals Goal [...] on filedocumented in this encounter Care Teams Partner Alliance Manager Relationship Specialty Start Date End Date Jerzy Vidal MD [address] [place] [address] [place] [address] PCP - [facility] Medicine 12/04/18 documented as of this encounter
--- OUTSIDE RECORDS SUMMARY | 2024-02-24 01:22 | XMS_ITS | Encounter Summary ---
Author Organization [facility] [place] [address] Care Team Providers Care Corsetier Name Role Phone Jerzy Vidal MD Primary Care Provider [phone] Reason for Visit * Reason Comments Medication Refill Encounter Details Date Type Department Care Team (Late Contact Info) Description 01/28/2020 Refill Hematology/Oncology at [address] [phone] Shon Schneider MD [facility] [place] [place] [address] Hypomagnesemia Social History Tobacco Use Types Packs/Day [...] 9:00 AM EDT Office Visit Hematology/Oncology at [address] [phone] Shon Schneider MD [facility] [place] [place] [address] Ciara Pitts APRN [address] [place] [address] DR HEMATOLOGY AND ONCOLOGY [place], [place] [id number] 02/24/2024 9:30 AM EDT Infusion Hematology Oncology at [address] [phone] 03/02/2024 11:00 AM EDT Office Visit Hematology/Oncology at [address] [phone] Shon Schneider MD [facility] [place] [place] [address] HEMATOLOGY AND ONCOLOGY [place], [place] [id number] 03/02/2024 12:30 PM EDT Infusion Hematology Oncology at [address] [phone] 03/09/2024 10:00 AM EDT Office Visit Hematology/Oncology at [address] [phone] Shon Schneider MD [facility] [place] [address] [place] [address] 03/09/2024 10:30 AM EDT Infusion Hematology Oncology at [address] [phone] documented as of this encounter Goals Goal [...] thymus documented in this encounter Care Teams Corsetier Relationship Specialty Start Date End Date Jerzy Vidal MD [address] [place] [address] [place] [address] PCP - [facility] Medicine 12/04/18 documented as of this encounter
--- OUTSIDE RECORDS SUMMARY | 2024-02-24 01:22 | XMS_ITS | Encounter Summary ---
Author Organization [facility] [place] [address] Care Team Providers Care Plastic Products Sales Representative Name Role Phone Jerzy Vidal MD Primary Care Provider [phone] Reason for Visit * Reason Onset Date Comments Medication Refill 10/30/2019 synthroid Encounter Details Date Type Department Care Team (Late Contact Info) Description 10/30/2019 Refill Hematology/Oncology at [address] [phone] Boaz Amos RN Thymic carcinoma; Acquired hypothyroidism Social History Tobacco Use Types Packs/Day Years Used Date Smoking Tobacco: Never Smokeless Tobacco: Never Sex and Gender Information Value Date Recorded Sex Assigned at Not on file Gender Identity Not on file Sexual Orientation Not on file documented as of this encounter Miscellaneous Notes * Telephone Encounter - Boaz Amos RN - 10/30/2019 2:15 PM EDT ----- Message from Laura Lane sent at 10/30/2019 1:57 PM EDT ----- Regarding: med refill Monica called asking for a refill on her Synthroid to be called in the [facility] In [place]. Thanks Laura documented in this encounter Plan of Treatment Upcoming Encounters Date Type Department Care Team (Late Contact Info) Description 02/24/2024 9:00 AM EDT Office Visit Hematology/Oncology at [address] [phone] Shon Schneider MD [facility] [place] [address] [address] HEMATOLOGY AND ONCOLOGY [place], [place] [address] [phone] 02/24/2024 9:30 AM EDT Infusion Hematology Oncology at [address] [phone] 03/02/2024 11:00 AM EDT Office Visit Hematology/Oncology at [address] [phone] Shon Schneider MD [facility] [place] [address] [address] HEMATOLOGY AND ONCOLOGY [place], [place] [address] 03/02/2024 12:30 PM EDT Infusion Hematology Oncology at [address] [phone] 03/09/2024 10:00 AM EDT Office Visit Hematology/Oncology at [address] [phone] Shon Schneider MD [facility] [place] [address] [address] HEMATOLOGY AND ONCOLOGY [place], [place] [address] [phone] 03/09/2024 10:30 AM EDT Infusion Hematology Oncology at [address] [phone] documented as of this encounter Goals Goal [...] thymus documented in this encounter Care Teams Plastic Products Sales Representative Relationship Specialty Start Date End Date Jerzy Vidal MD [address] [place] [address] [place] [address] PCP - [facility] Medicine 12/04/18 documented as of this encounter
--- OUTSIDE RECORDS SUMMARY | 2024-02-24 01:22 | XMS_ITS | Encounter Summary ---
Author Organization [facility] Address [facility] [place] [address] Care Team Providers Care Marketing Technology Coordinator Name Role Phone Jerzy Vidal MD Primary Care Provider [phone] Encounter Details Date Type Department Care Team (Late st Contact Info) Description 09/07/2019 10:00 AM EDT Office Visit Hematology/Oncology at [address] [phone] Shon Schneider MD [facility] [place] [address] Nadeen Srivastava, RN Thymic carcinoma Social History Tobacco Use Types Packs/Day Years Used Date Smoking Tobacco: Never Smokeless Tobacco: Never Sex and Gender Information Value Date Recorded Sex Assigned at Not on file Gender Identity Not on file Sexual Orientation Not on file documented as of this encounter Last Filed Vital Signs Vital Sign Reading Time Taken Comments Blood Pressure 133/74 09/07/2019 10:44 AM EDT Pulse 84 09/07/2019 10:44 AM EDT Temperature 37.2 ??C (99 ??F) 09/07/2019 10:44 AM EDT Respiratory Rate 16 09/07/2019 10:44 AM EDT Oxygen Saturation 100% 09/07/2019 10:44 AM EDT Inhaled Oxygen Concentration - - Weight 125.2 kg (276 lb) 09/07/2019 10:44 AM EDT Height 176 cm (5' 9.29) 09/07/2019 10:44 AM EDT Body Mass Index 40.42 09/07/2019 10:44 AM EDT documented in this encounter Progress Notes * Nadeen Srivastava, [employer]USTRI[employer] SAF[employer]Y AND HEALTH MANAGER - 09/07/2019 10:00 AM EDT Subjective: Encounter Diagnosis Name Primary? Thymic carcinoma Patient ID: Monica Jaramillo is a 64 y.o. female. Oncologic History: 1. Thymic carcinoma, stage IV A. Presented [...] - CONSULT SLIDES FROM [facility]; [place], [place]: A. MEDIASTINUM, MASS, BIOPSY ([id number]; 03/22/2017): ? MALIGNANT THYMIC EPITHELIAL NEOPLASM consistent [...] 4.5 CM, ULTRASOUND GUIDED FINED NEEDLE ASPIRATION ([id number]; 03/22/17): The cytologic preparations were not reviewed [...] Second opinion with Dr. Roddy Vega in [place]. They reviewed the pathology and concurred they [...] breast mass, stable left pericardial lymph node. Patient Active Problem List Diagnosis Code ??? Thymic carcinoma C37 ??? Pancytopenia D61.818 ??? Atrial fibrillation I48.91 ??? Essential hypertension I10 ??? Hypothyroidism E03.9 4. Echocardiogram 06/20/18 ([facility]) [...] thymic carcinoma. The history is summarized above. On presentation today, she is alone. She continues to feel well with no particular complaints. She is eating well and her weight is stable. Her energy and exercise tolerance are good. No dyspnea. No chest pain. Her bowels are regular. She feels much better off the S[place]. Denies any CARLOS's, vision changes, shortness of breath, chest pain, abdominal pain, nausea, diarrhea or edema. 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 Fam Hx: No h/o cancer Review of Systems All other systems reviewed and are negative. [...] Her behavior is normal. Vitals reviewed. Labs: 09/06/19- WBC-5.8 Hgb/Hct-9.7/32.0 Plts-251 ANC-3.51 BUN/Cr-10/0.50 LFTs and Lytes unremarkable Mg-1.5 TSH-1.61 FT4-1.42 WBC/ANC - 4.06/2849, Hgb/Hct - 8.1/25.3, Plts - 135,000. BUN/Cr - 6/0.6. Ng - 1.3. Lytes and LFTs o/w unremarkable. TSH - 1.84, free T4 - 1.23 ECG 08/09/19 - atrial fibrillation. Negative precordial T-waves, probably normal, consider anteroseptal ischemia. Assessment and Plan: Ms. Jaramillo is a [...] pembrolizumab. I spoke with Dr. Vega at [facility]. There were no clinical trials [...] mg/day, 2 weeks followed by one w [place] off, with cycles repeated every three weeks. She has tolerated that well. She had a restaging CT scan done on 09/26/18 which was stable compared with 04/2019. Therefore, the sutent was continued. She has had problems with myelosuppression. She was due to start the next cycle on 11/19/18 but it was held due to persistent pancytopenia. Because of the persistence of this she was referred to Hematology and saw Dr. Gaytan on 12/04/18. A BM biopsy was recommended to see if there is a primary underlying BM disorder such as [...] and the results are under scanned documents. Overall she appears to be tolerating the Pembrolizumab well without evidence of toxicities. We willproceed with therapy today and see her again in three weeks. We will recheck labs. We will have hercontinue the same dose of synthroid and recheck in three weeks. 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 She had an elevated fractional excretion of magnesium and therefore in 01/2019 was started on amiloride. It has improved today. We will continue to monitor it. documented in this encounter Plan of Treatment Upcoming Encounters Date Type Department Care Team (Late st Contact Info) Description 02/24/2024 9:00 AM EDT Office Visit Hematology/Oncology at [address] [phone] Shon Schneider MD [facility] [place] [address] [address] HEMATOLOGY AND ONCOLOGY [place], [place] [address] 02/24/2024 9:30 AM EDT Infusion Hematology Oncology at [address] [phone] 03/02/2024 11:00 AM EDT Office Visit Hematology/Oncology at [address] [phone] Shon Schneider MD [facility] [place] [address] Ciara Pitts [address] HEMATOLOGY [place] [address] 03/02/2024 12:30 PM EDT Infusion Hematology Oncology at [address] [phone] 03/09/2024 10:00 AM EDT Office Visit Hematology/Oncology at [address] [phone] Shon Schneider MD [facility] [place] [address] Ciara Pitts APRN [address] [place] [address] DR HEMATOLOGY AND ONCOLOGY [place], [place] [address] 03/09/2024 10:30 AM EDT Infusion Hematology Oncology at [address] [phone] documented as of this encounter Goals Goal [...] thymus documented in this encounter Care Teams Marketing Technology Coordinator Relationship Specialty Start Date End Date Jerzy Vidal MD [address] [place] [address] [place] [address] PCP - General [facility] Medicine 12/04/18 documented as of this encounter
--- OUTSIDE RECORDS SUMMARY | 2024-02-24 01:22 | XMS_ITS | Encounter Summary ---
Author Organization [facility] [place] [address] Care Team Providers Care Child Adolescent Care Name Role Phone Jerzy Vidal MD Primary Care Provider Encounter Details Date Type Department Care Team (Late Contact Info) Description 09/27/2019 Orders Only [place]ology [place] [phone] Shon Schneider MD [facility] [place] [address] Social History Tobacco Use Types Packs/Day Years [...] AM EDT Office Visit Hematology/Oncology at [address] [phone] Shon Schneider MD [facility] [place] [address] Ciara Pitts APRN [address] [place] [address] DR HEMATOLOGY [place] [address] 02/24/2024 9:30 AM EDT Infusion Hematology Oncology at [address] [phone] 03/02/2024 11:00 AM EDT Office Visit Hematology/Oncology at [address] [phone] Shon Schneider MD [facility] [place] [address] [address] HEMATOLOGY AND ONCOLOGY [place], [place] [address] 03/02/2024 12:30 PM EDT Infusion Hematology Oncology at [address] [phone] 03/09/2024 10:00 AM EDT Office Visit Hematology/Oncology at [address] [phone] Shon Schneider MD [facility] [place] [address] [address] HEMATOLOGY [place] [address] 03/09/2024 10:30 AM EDT Infusion Hematology Oncology at [address] [phone] documented as of this encounter Goals Goal [...] on filedocumented in this encounter Care Teams Child Adolescent Care Relationship Specialty Start Date End Date Jerzy Vidal MD [address] [place] [address] [place] [address] PCP - General [facility] Medicine 12/04/18 documented as of this encounter
--- OUTSIDE RECORDS SUMMARY | 2024-02-24 01:22 | XMS_ITS | Encounter Summary ---
Author Organization [facility] [place] [address] Care Team Providers Care Assistant Professor Of Communication Name Role Phone Jerzy Vidal MD Primary Care Provider [phone] Encounter Details Date Type Department Care Team (Late Contact Info) Description 01/11/2020 Telephone Hematology/Oncology at [address] [phone] Rachel Chavez RN Social History Tobacco Use Types Packs/Day Years Used Date Smoking Tobacco: Never Smokeless Tobacco: Never Sex and Gender Information Value Date Recorded Sex Assigned at Not on file Gender Identity Not on file Sexual Orientation Not on file documented as of this encounter Miscellaneous Notes * Telephone Encounter - Rachel Richardson RN - 01/11/2020 11:34 AM EDT Monica called back. Stated that her PCP referred her to OBGYN. She has an appointment with them today at 4pm. Patient reports she mentioned hormone therapy for the bleeding to the RN at the OBGYN's office and they stated that hormone therapy is contraindicated for persons with Thymic cancers. Discussed with patient that I would talk with Dr. Schneider about this issue and ask for his guidance. Verbalized understanding. documented in this encounter Plan of Treatment Upcoming Encounters Date Type Department Care Team (Late Contact Info) Description 02/24/2024 9:00 AM EDT Office Visit Hematology/Oncology at [address] [phone] Shon Schneider MD [facility] [place] [address] [address] HEMATOLOGY AND ONCOLOGY [place], [place] [address] [phone] 02/24/2024 9:30 AM EDT Infusion Hematology Oncology at [address] [phone] 03/02/2024 11:00 AM EDT Office Visit Hematology/Oncology at [address] [phone] Shon Schneider MD [facility] [place] [address] [address] [place] [address] 03/02/2024 12:30 PM EDT Infusion Hematology Oncology at [address] [phone] 03/09/2024 10:00 AM EDT Office Visit Hematology/Oncology at [address] [phone] Shon Schneider MD [facility] [place] [address] [address] HEMATOLOGY AND ONCOLOGY [place], [place] [address] 03/09/2024 10:30 AM EDT Infusion Hematology Oncology at [address] [phone] documented as of this encounter Goals Goal [...] filedocumented in this encounter Care Teams Assistant Professor Of Communication Relationship Specialty Start Date End Date Jerzy Vidal MD [address] [place] [address] [place] [address] PCP - [facility] Medicine 12/04/18 documented as of this encounter
--- OUTSIDE RECORDS SUMMARY | 2024-02-24 01:22 | XMS_ITS | Encounter Summary ---
Author Organization [facility] Address [facility] [place] [address] Care Team Providers Care Hydrogenation Operator Name Role Phone Jerzy Vidal MD Primary Care Provider [phone] Encounter Details Date Type Department Care Team (Late st Contact Info) Description 10/19/2019 10:00 AM EDT Office Visit Hematology/Oncology at [address] [phone] Shon Schnieder MD [facility] [place] [address] Nadeen Srivastava, RN Thymic carcinoma Social History Tobacco Use Types Packs/Day Years Used Date Smoking Tobacco: Never Smokeless Tobacco: Never Sex and Gender Information Value Date Recorded Sex Assigned at Not on file Gender Identity Not on file Sexual Orientation Not on file documented as of this encounter Last Filed Vital Signs Vital Sign Reading Time Taken Comments Blood Pressure 123/70 10/19/2019 10:06 AM EDT Pulse 81 10/19/2019 10:06 AM EDT Temperature 36.2 ??C (97.2 ??F) 10/19/2019 10:06 AM E DT Respiratory Rate 18 10/19/2019 10:06 AM EDT Oxygen Saturation 96% 10/19/2019 10:06 AM EDT Inhaled Oxygen Concentration - - Weight 125.2 kg (276 lb) 10/19/2019 10:06 AM EDT Height 176 cm (5' 9.29) 10/19/2019 10:06 AM EDT Body Mass Index 40.42 10/19/2019 10:06 AM EDT documented in this encounter Progress Notes * Nadeen Srivastava, [employer] - 10/19/2019 10:00 AM EDT Subjective: Encounter Diagnosis Name Primary? Thymic carcinoma Patient Active Problem List Diagnosis Code ??? Thymic carcinoma C37 ??? Pancytopenia D61.818 ??? Atrial fibrillation I48.91 ??? Essential hypertension I10 ??? Hypothyroidism E03.9 Patient ID: Monica Jaramillo is a 64 [...] pleural effusion with compression atelectasis. transferred to [facility] for further evaluation and workup and had [...] Women's review - CONSULT SLIDES FROM ; [place], [place]: A. MEDIASTINUM, MASS, BIOPSY ([id number]; 03/22/2017): ? 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 ?Immunohistochemistry performed at the outside institution and reviewed at [facility] demonstrates the following staining profile in lesional cells: ? Positive - AE1/AE3, p40, PAX8, CD117, CD5(multifocal), CK7(scattered cells), synaptophysin, chromogranin ? Negative - CK20, TTF-1, GATA3, CD34 ? The immunohistochemical profile supports the above diagnosis. ? Ki67 (MIB-1) proliferation index performed at the referring institution and reviewed at [facility] is focally up to ~30%. NOTE: While diffuse synaptophysin and chromogranin expression is unusual for conventional thymic carcinoma, the overall histomorphology and immunophenotype is most in keeping with THYMIC SQUAMOUS CARCINOMA.?The extent of PAX8 and CD117 staining would be unusual for Nut carcinoma. B. MEDIASTINUM, ANTERIOR, 4.5 CM, ULTRASOUND GUIDED FINED NEEDLE ASPIRATION ([id number]; 03/22/17): The cytologic preparations were not reviewed [...] Second opinion with Dr. Roddy Vega in [place]. They reviewed the pathology and concurred they [...] K. 08/17/19 - began therapy with pembrolizumab 2. H/o atrial fibrillation 3. HTN 4. [...] carcinoma. The history is summarized above. Monica returns to the clinic in [facility] today for follow up of thymic cancer. She began immunotherapy with pembrolizumab on 08/17/19 and has received 3 doses. She has tolerated this very well thusfar and states she feels wonderful She says she feels as though nothing is wrong with her. Toward the end of her time on sutent, she was noticing that she tired more easily. Her energy level is good and she feels strong. Her bowels are generally regular. There are times that she has a loose stool and she will take an immodium morning and night on those days and it resolves. No chest pain, no SOB. She denies any headaches, double vision, trouble swallowing, cough, fevers or chills, abdominal pain, chest pain, shortness of breath or swelling. 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 Fam Hx: No h/o cancer Review of Systems Constitutional: Negative for activity change, appetite change, fatigue, fever and unexpected weightchange. HENT: Negative. Respiratory: Negative for cough and shortness of breath. Cardiovascular: Negative for chest pain and leg [...] exudate. Eyes: No scleral icterus. Cardiovascular: Normal rate. Pulmonary/Chest: No respiratory distress. Abdominal: She exhibits no distension. Musculoskeletal: General: No edema. Neurological: She is alert and oriented to person, place, and time. Coordination normal. Skin: Skin is warm and dry. No rash noted. Psychiatric: She has a normal mood and affect. Her behavior is normal. Vitals reviewed. Labs: 10/18/19- WBC-7.0 Hgb/Hct-10.8/35.2 Plt-208 ANC-4.91 BUN/Cr-14/0.70 Lytes and LFTS unremarkable LDH-346 Mg-1.4 TSH-2.19 WBC/ANC - 6.12/4849, Hgb/Hct - 10.4/35.1, Plts - 229,000. BUN/Cr - 12/0.6. Mg - 1.7. Lytes and LFTs o/w unremarkable. LDH - 431 ([phone]) TSH - 1.7, free T4 - 1.16 Assessment and Plan: Ms. Jaramillo is a [...] pembrolizumab. I spoke with Dr. Vega at [facility]. There were no clinical trials available there. [...] mg/day, 2 weeks followed by one w [place] off, with cycles repeated every three weeks. [...] immunotherapy with pembrolizumab on 08/17/19 and has received three doses. She has tolerated this very well. The Hgb is still low but slowly improving. The platelet count and WBC are WNL. The TSH and T4 are WNL. Will have her continue the same dose of synthroid and recheck in three weeks. 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 She had an elevated fractional excretion of magnesiumand therefore in 01/2019 was started on amiloride. We will plan restaging for Monica after her 4th cycle today. [facility]. We will see her back in 3 weeks for scan review, labs and infusion. documented in this encounter Plan of Treatment Upcoming Encounters Date Type Department Care Team (Late st Contact Info) Description 02/24/2024 9:00 AM EDT Office Visit Hematology/Oncology at [address] [phone] Shon Schneider MD [facility] [place] [address] Ciara Pitts [address] [place] [address] 02/24/2024 9:30 AM EDT Infusion Hematology Oncology at [address] [phone] 03/02/2024 11:00 AM EDT Office Visit Hematology/Oncology at [address] [phone] Shon Schneider MD [facility] [place] [address] Ciara Pitts [address] HEMATOLOGY AND ONCOLOGY [place], [place] [id number] 03/02/2024 12:30 PM EDT Infusion Hematology Oncology at [address] [phone] 03/09/2024 10:00 AM EDT Office Visit Hematology/Oncology at [address] [phone] Shon Schneider MD [facility] [place] [place] [address] Ciara Pitts APRN [address] [place] [address] [place] [address] 03/09/2024 10:30 AM EDT Infusion Hematology Oncology at [address] [phone] documented as of this encounter Goals Goal Patient Goal Type Associated Problems Recent Progress Patient-Stated? Author DH Home Medication Compliance and Understanding Patient Facing Action Plan On track( 019 3:22 PM EST) No Ivana Vanegas, [facility] Note: Remain 95% or better adherent to chemotherapy without severe side effects as assessed by days supply and patient reported adverse events at each refill documented as of this encounter Visit Diagnoses Diagnosis 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 documented in this encounter Care Teams Hydrogenation Operator Relationship Specialty Start Date End Date Jerzy Vidal MD [address] [place] [address] [place] [address] PCP - General [facility] Medicine 12/04/18 documented as of this encounter
--- OUTSIDE RECORDS SUMMARY | 2024-02-24 01:22 | XMS_ITS | Encounter Summary ---
Author Organization [facility] Address [facility] [place] [address] Care Team Providers Care Occupational Health Technician Name Role Phone Jerzy Vidal MD Primary Care Provider [phone] Reason for Referral * Consultation (Routine) - Closed Specialty Diagnoses / Procedures Referred By Contac t Referred To Contact Diagnoses Thymic carcinoma Shon Schneider MD [facility] [place] [address] Unknown None Referral ID Status Reason Start Date Expiration Date V isits Requested Visits Authorized [id number] Closed Consult, Test & Treat 02/08/2020 08/06/2020 1 1 Encounter Details Date Type Department Care Team (Late st Contact Info) Description 02/08/2020 1:00 PM EDT Office Visit Hematology/Oncology at [address] [phone] Shon Schneider MD [facility] [place] [address] Nadeen Srivastava, RN Ivory Flynn, [employer] [address] [place] [address] DR HEMATOLOGY ONCOLOGY [place], [place] [id number] Thymic carcinoma Social History Tobacco Use Types Packs/Day Years Used Date Smoking Tobacco: Never Smokeless Tobacco: Never Sex and Gender Information Value Date Recorded Sex Assigned at Not on file Gender Identity Not on file Sexual Orientation Not on file documented as of this encounter Last Filed Vital Signs Vital Sign Reading Time Taken Comments Blood Pressure 125/88 02/08/2020 12:54 PM EDT Pulse 80 02/08/2020 12:54 PM EDT Temperature 36.5 ??C (97.7 ??F) 02/08/2020 1 2:54 PM EDT Respiratory Rate 18 02/08/2020 12:5 4 PM EDT Oxygen Saturation 98% 02/08/2020 12: 54 PM EDT Inhaled Oxygen Concentration - - Weight 121.7 kg (268 lb 6.4 oz) 020 12:54 PM EDT Height 176 cm (5' 9.29) 02/08/2020 12: 54 PM EDT Body Mass Index 39.3 02/08/2020 12:54 PM EDT documented in this encounter Progress Notes * Shon Schneider MD - 02/08/2020 1:00 PM EDT Subjective: Patient ID: Monica [...] pleural effusion with compression atelectasis. transferred to [facility] for further evaluation and workup [...] B. Biopsy of mediastinal mass 03/29 Path ([facility] review) - Mediastinum, mass, biopsy: 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 [facility] - CONSULT SLIDES FROM [facility]; [place], [place]: A. MEDIASTINUM, MASS, BIOPSY ([id number]; 03/22/2017): ? MALIGNANT THYMIC EPITHELIAL NEOPLASM consistent [...] 4.5 CM, ULTRASOUND GUIDED FINED NEEDLE ASPIRATION ([id number]; 03/22/17): The cytologic preparations were not reviewed [...] Second opinion with Dr. Roddy Vega in [place]. They reviewed the pathology and concurred they [...] therapy with pembrolizumab L. CT c/a/p 11/06/19 ([facility] second read) - IMPRESSION 1. Worsening left-sided [...] today by her stewart Crane. She is receiving therapy with pembrolizumab.She is feeling pretty well overall. She has been having intermittent problems with VASQUEZ. She is using an albuterol inhaler which seems to help. She notices it more 4-5 days after the infusion and thenimproves. No cough and no fevers. She has had this for a couple of months and it is not worsening. She is otherwise feeling well. She is eating well and her weight is stable. She has occasional loosestools for which she uses immodium and it clears up. Her energy level is good and she feels strong.No chest pain and no pain at all.. Soc Hx: , lives in [place], [place] Tob - Never Etoh - rare [...] affect. Her behavior is normal. Vitals reviewed. Labs (02/07/20): WBC/ANC - 6., Hgb/Hct - 12.5/40.4, Plts - 201,000. BUN/Cr - 6/0.6. Mg - 1.6. Lytes and LFTs o/w unremarkable. LDH - 396 ([phone]) TSH - 2.1, free T4 - 1.18 CT report reviewed, images not available Assessment and Plan: Ms. Jaramillo is a [...] pembrolizumab. [facility] [...] mg/day, 2 weeks followed by one w [facility] off, with cycles repeated every three weeks. [...] A CT was repeated on 02/06/20. This shows progression of the pleural nodularity on the left with an increase in a small left pleural effusion. We reviewed the images together today and I agree that itdoes appear that there appears to be progession of the pleural disease. Given this, my thought is to stop the pembrolizumab and consider lenvatinib. She is very aware of the uncommon nature of this disease and wonders about having a second opinion with an expert in this area. We have decided to make a referral to Dr. Shon Ramon at [facility]. It would be difficult for to travel for that appt and our hope is that we can send the information and imaging and arrange this to be done as a TeleHealth visit. We will try to get this done as quickly as we can and I will see her afterward. I am more than happy to talk with Dr. Ramon if he would like. Addendum: Lenvatinib has been denied by insurance. I spoke with Dr. Beckman at [facility] on 02/22/20.His recommendation was to try capecitabine plus gemcitabine. Gemcitabine is given day 1/day 8. Capecitabine is taken orall bid for 14 days followed by 7 days off with cycles repeated every 3 weeks. He suggested a flat dose of capecitabine of 1000 mg bid. Will start authorization process for capecitabine and will plan to start gemcitabine on 02/29/20. documented in this encounter Plan of Treatment Upcoming Encounters Date Type Department Care Team (Late st Contact Info) Description 02/24/2024 9:00 AM EDT Office Visit Hematology/Oncology at [address] [phone] Shon Schneider MD [facility] [place] [address] Ciara Pitts APRN [address] [place] [address] HEMATOLOGY AND ONCOLOGY [place], [place] [address] 02/24/2024 9:30 AM EDT Infusion Hematology Oncology at [address] [phone] 03/02/2024 11:00 AM EDT Office Visit Hematology/Oncology at [address] [phone] Shon Schneider MD [facility] [place] [address] [address] HEMATOLOGY AND ONCOLOGY [place], [place] [id number] 03/02/2024 12:30 PM EDT Infusion Hematology Oncology at [address] [phone] 03/09/2024 10:00 AM EDT Office Visit Hematology/Oncology at [address] [phone] Shon Schneider MD [facility] [place] [address] [address] HEMATOLOGY AND ONCOLOGY [place], [place] [id number] 03/09/2024 10:30 AM EDT Infusion Hematology Oncology at [address] [phone] Scheduled Referrals Name Type Priority Associated Diagnoses Order Schedule Referral to Hematology and Oncology Outpatient Referral Routine Thymic carcinoma Ordered: 02/08/2020 documented as of this encounter Goals Goal [...] thymus documented in this encounter Care Teams Occupational Health Technician Relationship Specialty Start Date End Date Jerzy Vidal MD [address] [place] [address] [place] [address] PCP - [facility] Medicine 12/04/18 documented as of this encounter
--- OUTSIDE RECORDS SUMMARY | 2024-02-24 01:22 | XMS_ITS | Encounter Summary ---
Author Organization [facility] [place] [address] Care Team Providers Care Service Desk Technician Name Role Phone Jerzy Vidal MD Primary Care Provider [phone] Encounter Details Date Type Department Care Team (Latest Contact Info) Description 11/07/2019 10:35 PM EDT Ancillary [place] [address] Shon Schneider MD [facility] [place] [address] Thymic carcinoma Social History Tobacco Use Types [...] AM EDT Office Visit Hematology/Oncology at [address] [phone] Shon Schneider MD [facility] [place] [address] Ciara Pitts APRN [address] [place] [address] DR HEMATOLOGY AND ONCOLOGY [place], [place] [address] 02/24/2024 9:30 AM EDT Infusion Hematology Oncology at [address] [phone] 03/02/2024 11:00 AM EDT Office Visit Hematology/Oncology at [address] [phone] Shon Schneider MD [facility] [place] [address] HEMATOLOGY AND ONCOLOGY [place], [place] [id number] 03/02/2024 12:30 PM EDT Infusion Hematology Oncology at [address] [phone] 03/09/2024 10:00 AM EDT Office Visit Hematology/Oncology at [address] [phone] Shon Schneider MD [facility] [place] [address] HEMATOLOGY AND ONCOLOGY [place], [place] [address] 03/09/2024 10:30 AM EDT Infusion Hematology Oncology at [address] [phone] documented as of this encounter Goals Goal [...] Procedure Name Priority Date/Time Associated Diagnosis Comments REQUEST FOR 2ND READ CT CHEST ABDOMEN PELVIS Routine 11/07/2019 10:29 PM EDT 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 ??Worsening left-sided pleural and fissural metastases. Worsening pericardial metastases. 2. ??No interval change in size of partially calcified thymic mass. 3. ??Unchanged nonspecific left breast mass. 4. ??No evidence of metastatic disease below the diaphragm. Thank you for letting us participate in the care of this patient. For questions regarding this report, please contact the number below. ? Narrative 11/08/2019 10:01 AM EDT EXAMINATION: REQUEST FOR 2ND READ CT CHEST ABDOMEN PELVIS CLINICAL HISTORY: thymic carcinoma, unresectable. ??On immunotherapy, restaging; restaging/response to therapy; What Modality is the exam? CT Scan; Body Part (please add comments as necessary): chest, abd, pelvis; Sending Institution [facility]; Date of exam [id number]; I believe a reinterpretation of this exam may alter care of Patient. Yes TECHNIQUE: CT of the chest, abdomen and pelvis with intravenous and oral contrast. COMPARISON: Most recent CT of the chest abdomen and pelvis 07/31/19. FINDINGS: Chest: Lungs and large airways: Normal. Pleura: Increased left-sided pleural and fissural nodularity, especially at the apex. Increased size of a fissural nodule at the superior left major fissure from 9 mm to 14 mm. The greatest amount of pleural metastases remain at the posterior costophrenic sulcus, associated with a small effusion. No right pleural nodules or effusion. Heart/vasculature: Normal cardiac size. No pericardial effusion. Unchanged appearance of the aorta and main pulmonary artery. No stenosis of the great vessel origins from the aortic arch. No narrowing of the brachiocephalic veins or SVC. Right chest wall MediPort catheter terminates at the confluence of the brachiocephalic veins. Lymph nodes, mediastinum and william: Anterior mediastinal mass centered to the left of midline, not significantly changed in axial dimensions, approximately 3.5 x 8 cm. Unchanged central calcification pattern. Worsening of nodularity along the anterior and left side of the pericardium. Increased size of right upper paratracheal node versus metastases. Chest wall: Unchanged size and appearance of left breast mass, approximately 3 cm. Abdomen/pelvis: Liver: Normal size and attenuation without lesions. Bile ducts: Nondilated. Gallbladder: No calcified gallstones. Normal caliber wall. Pancreas: Normal attenuation without ductal dilatation. Spleen: Normal. Adrenals: Normal. Kidneys: Normal. Urinary Bladder: Normal. Vasculature: No aneurysm. Lymph Nodes: ??No enlarged lymph nodes. Bowel: Nondilated, no wall thickening. ?? Peritoneum and mesentery: No ascites, free air, or loculated fluid collection. No mesenteric inflammation. Abdominal wall: Unchanged size and appearance of multiple midline ventral hernias, some containing unobstructed bowel loops in addition to fat. Reproductive organs: Enlarged, lobular uterine contour with multiple calcified masses compatible with fibroids. No interval change. Osseous structures: No suspicious lesions. Degenerative changes without significant interval progression. Lucent lesions within the L2 and T11 vertebral bodies are stable since 2017 and most likely hemangiomas. Procedure Note Salvatore Wong MD - 11/08/2019 EXAMINATION: REQUEST FOR 2ND READ CT CHEST ABDOMEN PELVIS CLINICAL HISTORY: thymic carcinoma, unresectable. On immunotherapy,restaging; restaging/response to therapy; What Modality is the exam? CT Scan; BodyPart (please add comments as necessary): chest, abd, pelvis; [facility]; Date of exam [id number]; I believe areinterpretation of this exam may alter care of Patient. Yes TECHNIQUE: CT of the chest, abdomen and pelvis with intravenous and oral contrast. COMPARISON: Most recent CT of the chest abdomen and pelvis 07/31/19. FINDINGS: Chest: Lungs and large airways: Normal. Pleura: Increased left-sided pleural and fissural nodularity, especiallyat the apex. Increased size of a fissural nodule at the superior left majorfissure from 9 mm to 14 mm. The greatest amount of pleural metastases remain atthe posterior costophrenic sulcus, associated with a small effusion. Noright pleural nodules or effusion. Heart/vasculature: Normal cardiac size. No pericardial effusion.Unchanged appearance of the aorta and main pulmonary artery. No stenosis of thegreat vessel origins from the aortic arch. No narrowing of the brachiocephalicveins or SVC. Right chest wall MediPort catheter terminates at the confluence ofthe brachiocephalic veins. Lymph nodes, mediastinum and william: Anterior mediastinal mass centered tothe left of midline, not significantly changed in axial dimensions,approximately 3.5 x 8 cm. Unchanged central calcification pattern. Worsening ofnodularity along the anterior and left side of the pericardium. Increased size ofright upper paratracheal node versus metastases. Chest wall: Unchanged size and appearance of left breast mass,approximately 3 cm. Abdomen/pelvis: Liver: Normal size and attenuation without lesions. Bile ducts: Nondilated. Gallbladder: No calcified gallstones. Normal caliber wall. Pancreas: Normal attenuation without ductal dilatation. Spleen: Normal. Adrenals: Normal. Kidneys: Normal. Urinary Bladder: Normal. Vasculature: No aneurysm. Lymph Nodes: No enlarged lymph nodes. Bowel: Nondilated, no wall thickening. Peritoneum and mesentery: No ascites, free air, or loculated fluidcollection. No mesenteric inflammation. Abdominal wall: Unchanged size and appearance of multiple midlineventral hernias, some containing unobstructed bowel loops in addition to fat. Reproductive organs: Enlarged, lobular uterine contour with multiplecalcified masses compatible with fibroids. No interval change. Osseous structures: No suspicious lesions. Degenerative changes without significant interval progression. Lucent lesions within the L2 and V73dyesqtodb bodies are stable since 2017 and most likely hemangiomas. IMPRESSION 1. Worsening left-sided pleural and fissural metastases. Worseningpericardial metastases. 2. No interval change in size of partially calcified thymic mass. 3. Unchanged nonspecific left breast mass. 4. No evidence of metastatic disease below the diaphragm. Thank you for letting us participate in the care of this patient. Forquestions regarding this report, please contact the number below. 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
--- OUTSIDE RECORDS SUMMARY | 2024-02-24 01:22 | XMS_ITS | Encounter Summary ---
Author Organization [facility] Address [facility] [place] [address] Care Team Providers Care Crossing Supervisor Name Role Phone Jerzy Vidal MD Primary Care Provider [phone] Reason for Visit * Reason Comments Chemotherapy Cycle 5 day 1 * Treatment/Therapy Plan Authorization (Routine) - Closed Specialty Diagnoses / Procedures Referred By Franklyn del rio Referred To Contact Diagnoses Thymic carcinoma Procedures [id number] - KEYTRUDA / PEMBROLIZUMAB Shon Schneider MD [facility] [place] [address] Stj Hem Onc Infusion [address] [place] [phone] Referral ID Status Reason Start Date Expiration Date Visits Re quested Visits Authorized [id number] Closed 09/25/2019 01/17/2021 10 10 Encounter Details Date Type Department Care Team (Late st Contact Info) Description 11/09/2019 9:30 AM EDT Infusion Hematology Oncology at [address] [phone] Thymic carcinoma Social History Tobacco Use Types Packs/Day Years Used Date Smoking Tobacco: Never Smokeless Tobacco: Never Sex and Gender Information Value Date Recorded Sex Assigned at Not on file Gender Identity Not on file Sexual Orientation Not on file documented as of this encounter Progress Notes * Indigo Price RN - 11/09/2019 9:30 AM EDT INFUSION THERAPY ADMINISTRATION NOTES DIAGNOSIS: Thymic Cancer CYCLE #: 5 REASON FOR VISIT: Pembrolizumab SUBJECTIVE Monica Jaramillo offers no complaints. OBJECTIVE LAB DATA: Labs done at [facility] 11/08/19-(CBC was not drawn) IV ACCESS: Mediport accessed on arrival and CBC drawn at 10:07 and taken to [facility] to be run. Pt aware of delay while awaiting results. 1050: results received and reviewed by Dr. Schneider Pre administration: Chemotherapy orders independently verified for drug name, route, and dosage per patient's height, weight and BSA by INDIGO PRICE RN and on-site pharmacist. REACTIONS (DESCRIPTION, TIME, INTERVENTION AND EFFECTIVENESS) none ASSESSMENT Monica Jaramillo was awake, alert and he tolerated treatment well. PLAN Return to clinic in 3 weeks. documented in this encounter Plan of Treatment Upcoming Encounters Date Type Department Care Team (Late st Contact Info) Description 02/24/2024 9:00 AM EDT Office Visit Hematology/Oncology at [address] [phone] Shon Schneider MD [facility] [place] [address] [address] HEMATOLOGY AND ONCOLOGY [place], [place] [address] 02/24/2024 9:30 AM EDT Infusion Hematology Oncology at [address] [phone] 03/02/2024 11:00 AM EDT Office Visit Hematology/Oncology at [address] [phone] Shon Schneider MD [facility] [place] [address] Ciara Pitts [address] HEMATOLOGY AND ONCOLOGY [place], [place] [phone] 03/02/2024 12:30 PM EDT Infusion Hematology Oncology at [address] [phone] 03/09/2024 10:00 AM EDT Office Visit Hematology/Oncology at [address] [phone] Shon Schneider MD [facility] [place] [address] Ciara Pitts APRN [address] [place] [address] DR HEMATOLOGY AND ONCOLOGY [place], [place] [phone] 03/09/2024 10:30 AM EDT Infusion Hematology Oncology at [address] [phone] documented as of this encounter [...] MAR Action Action Date Dose Rate Site heparin, porcine 100 unit/mL flush 500 Units 500 Units, Intravenous, ONCE PRN, Starting on Tue11/09/19 at 1056, Until Tue11/09/19 at 1453, Line Care, Refer to Intravenous (IV) Procedure: Accessing Implanted Vascular Access Devices (514) procedure and/or Intravenous (IV) Job Aid: Adult Flushing & Catheter Care (4407) job aid for additional information regarding guidelines and administration., Routine Given 11/09/2019 12:32 PM EDT 500 Units pembrolizumab (KEYTRUDA) 200 mg in sodium chloride 0.9% 108 mL infusion 200 mg, Intravenous, ONCE, 1 dose, On Tue11/09/19 at 1215, Administer over 30 Minutes, Flush line with NS after each dose., This agent is restricted to outpatient use. Is this drug being given as an outpatient? Yes New Bag 11/09/2019 11:57 AM EDT 200 mg 216 mL/hr sodium chloride 0.9 % (flush) flush 5-20 mL 5-20 mL, Intravenous, EVERY 1 MIN PRN, Starting on Tue11/09/19 at 1056, Until Tue11/09/19 at 1453, Line Care, Flush pertains to all indwelling lines. Flush per protocol found in the job aid using the link provided on this medication record. Refer to Intravenous (IV) Job Aid: Adult Flushing & Catheter Care (9524) job aid for additional information regarding guidelines and administration., Routine Given 11/09/2019 12:31 PM EDT 20 mLs documented in this encounter Care Teams Crossing Supervisor Relationship Specialty Start Date End Date Jerzy Vidal MD [address] [place] [address] PCP - [facility] Medicine 12/04/18 documented as of this encounter
--- OUTSIDE RECORDS SUMMARY | 2024-02-24 01:22 | XMS_ITS | Encounter Summary ---
Author Organization [facility] [place] [address] Care Team Providers Care Machine Operators Name Role Phone Jerzy Vidal MD Primary Care Provider [phone] Encounter Details Date Type Department Care Team (Late Contact Info) Description 02/15/2020 Orders Only Hematology [place] [phone] Shon Schneider MD [facility] [place] [address] Social History Tobacco Use Types Packs/Day Years [...] AM EDT Office Visit Hematology/Oncology at [address] [phone] Shon Schneider MD [facility] [place] [place] [address] Ciara Pitts APRN [address] [place] [address] DR HEMATOLOGY [place] [address] 02/24/2024 9:30 AM EDT Infusion Hematology Oncology at [address] [phone] 03/02/2024 11:00 AM EDT Office Visit Hematology/Oncology at [address] [phone] Shon Schneider MD [facility] [place] [address] HEMATOLOGY AND ONCOLOGY [place], [place] [address] 03/02/2024 12:30 PM EDT Infusion Hematology Oncology at [address] [phone] 03/09/2024 10:00 AM EDT Office Visit Hematology/Oncology at [address] [phone] Shon Schneider MD [facility] [place] [place] [address] HEMATOLOGY [place] [address] 03/09/2024 10:30 AM EDT Infusion Hematology Oncology at [address] [phone] documented as of this encounter Goals Goal [...] on filedocumented in this encounter Care Teams Machine Operators Relationship Specialty Start Date End Date Jerzy Vidal MD [address] [place] [address] [place] [address] PCP - General [facility] Medicine 12/04/18 documented as of this encounter
--- OUTSIDE RECORDS SUMMARY | 2024-02-24 01:22 | XMS_ITS | Encounter Summary ---
Author Organization [facility] [place] [address] Care Team Providers Care Manager Call Name Role Phone Jerzy Vidal MD Primary Care Provider [phone] Reason for Visit * Reason Onset Date Comments Labs Only 08/24/2019 get labs next we d Encounter Details Date Type Department Care Team (Late Contact Info) Description 08/24/2019 Telephone Hematology Oncology at [address] [phone] Eden Vieira, RN Labs Only (get labs next tue) Social History Tobacco Use Types Packs/Day Years Used Date Smoking Tobacco: Never Smokeless Tobacco: Never Sex and Gender Information Value Date Recorded Sex Assigned at Not on file Gender Identity Not on file Sexual Orientation Not on file documented as of this encounter Miscellaneous Notes * Telephone Encounter - Eden Vieira RN - 08/24/2019 10:[address] Schneider reviewed Monica's labs. He would like her to be re-checked on 08/28. I called Monica and left a message for her to call and confirm. documented in this encounter Plan of Treatment Upcoming Encounters Date Type Department Care Team (Late Contact Info) Description 02/24/2024 9:00 AM EDT Office Visit Hematology/Oncology at [address] [phone] Shon Schneider MD [facility] [place] [address] [address] HEMATOLOGY AND ONCOLOGY [place], [place] [address] 02/24/2024 9:30 AM EDT Infusion Hematology Oncology at [address] [phone] 03/02/2024 11:00 AM EDT Office Visit Hematology/Oncology at [address] [phone] Shon Schneider MD [facility] [place] [address] [address] HEMATOLOGY AND ONCOLOGY [place], [place] [address] 03/02/2024 12:30 PM EDT Infusion Hematology Oncology at [address] [phone] 03/09/2024 10:00 AM EDT Office Visit Hematology/Oncology at [address] [phone] Shon Schneider MD [facility] [place] [address] [address] HEMATOLOGY AND ONCOLOGY [place], [place] [id number] 03/09/2024 10:30 AM EDT Infusion Hematology Oncology at [address] [phone] documented as of this encounter Goals Goal [...] on filedocumented in this encounter Care Teams Manager Call Relationship Specialty Start Date End Date Jerzy Vidal MD [address] [place] [address] [place] [address] PCP - [facility] Medicine 12/04/18 documented as of this encounter
--- OUTSIDE RECORDS SUMMARY | 2024-02-24 01:22 | XMS_ITS | Encounter Summary ---
Author Organization [facility] [place] [address] Care Team Providers Care Patient Account Representative Name Role Phone Jerzy Vidal MD Primary Care Provider [phone] Encounter Details Date Type Department Care Team (Late st Contact Info) Description 09/27/2019 Telephone Hematology/Oncology at [address] [phone] Dorian Esparza Social History Tobacco Use Types Packs/Day Years Used Date Smoking Tobacco: Never Smokeless Tobacco: Never Sex and Gender Information Value Date Recorded Sex Assigned at Not on file Gender Identity Not on file Sexual Orientation Not on file documented as of this encounter Miscellaneous Notes * Telephone Encounter - Dorian Esparza - 09/27/2019 11:20 AM EDT Called Monica to inform her of the following: As a new precaution with COVID-19 we are calling all patients before they come in for their appointment to screen for any potential symptoms. 1. EXPOSURE: ???Have you been in contact with anyone suspected or confirmed to have COVID-19 in thepast 14 days??? Yes/No 2. Do you have a fever, cough, or shortness of breath? Yes/No [if they say yes to symptoms but no to exposure OR yes to symptoms and yes to exposure include the following and route to triage] I am going to forward this information on to our triage nurse. Someone should be calling you about next steps in regards to your appointment. Another precaution we are taking is that we are not allowing visitors at this time. If needed, someone may bring you to your appointment but they will be asked to wait outside. If you develop symptoms of shortness of breath, cough, or fever prior to your appointment do not come in for your appointment. Please call the Cancer Center before coming in. documented in this encounter Plan of Treatment Upcoming Encounters Date Type Department Care Team (Late st Contact Info) Description 02/24/2024 9:00 AM EDT Office Visit Hematology/Oncology at [address] [phone] Shon Schneider MD [facility] [place] [address] [address] HEMATOLOGY AND ONCOLOGY [place], [place] [address] 02/24/2024 9:30 AM EDT Infusion Hematology Oncology at [address] [phone] 03/02/2024 11:00 AM EDT Office Visit Hematology/Oncology at [address] [phone] Shon Schneider MD [facility] [place] [address] [address] [place] [address] 03/02/2024 12:30 PM EDT Infusion Hematology Oncology at [address] [phone] 03/09/2024 10:00 AM EDT Office Visit Hematology/Oncology at [address] [phone] Shon Schneider MD [facility] [place] [address] Ciara Pitts APRN [address] [place] [address] DR HEMATOLOGY AND ONCOLOGY [place], [place] [phone] 03/09/2024 10:30 AM EDT Infusion Hematology Oncology at [address] [phone] documented as of this encounter [...] filedocumented in this encounter Care Teams Patient Account Representative Relationship Specialty Start Date End Date Jerzy Vidal MD [address] [place] [address] [place] [address] PCP - [facility] Medicine 12/04/18 documented as of this encounter
--- OUTSIDE RECORDS SUMMARY | 2024-02-24 01:22 | XMS_ITS | Encounter Summary ---
[place] [address] Care Team Providers Care Thermo Cementing Folder Operator Name Role Phone Jerzy Vidal MD Primary Care Provider [phone] Reason for Visit * Reason Comments Prior Authorization Lenvima 24mg daily d ose CPPK Encounter Details Date Type Department Care Team (Late st Contact Info) Description 02/19/2020 Specialty [place] [address], HOUSEHOLD COORDINATOR Social History Tobacco Use Types Packs/Day Years Used Date Smoking Tobacco: Never Smokeless Tobacco: Never Sex and Gender Information Value Date Recorded Sex Assigned at Not on file Gender Identity Not on file Sexual Orientation Not on file documented as of this encounter Progress Notes * So Lane - 02/19/2020 2:21 PM EDT [facility], Medication Prior Authorization Patient: Monica Jaramillo Patient : 1955 Patient Address: [address] [facility] [address] (home) Medication Name: LENVIMA 24 MG PER DAY (10 MG X 2 AND 4 MG X 1) CAPSULE Medication ID: [id number] Patient [facility] Patient Location Comment: Subscriber Insurance: [employer] 2013 Subscriber Insurance Comment: Fax: Physician: SHON COATES Physician Comment: Sent Via: Fax Laird: Ref/Case/PA#: Medication Strength Frequency Requested: Lenvima 24mg daily dose - Take two 10mg capsules by mouth along with one 4mg capsule for a total of 24mg once daily. Qty/Day Supply: New Start: New to Therapy Diagnosis & ICD-10 Code: Thymic carcinmoa C37 Patient Notified: No Submission Notes: None * So Lane - 02/19/2020 2:21 PM EDT [facility], Prior Authorization Denial Medication Name: LENVIMA 24 MG PER DAY (10 MG X 2 AND 4 MG X 1) CAPSULE Medication ID: [id number] Case/Reference # : [id number] Denial Summary: Lenvima is not approved by the FDA for thymus carcinoma. However, a particular non-FDA approved use (off-label indication) of a drug considered medically necessary when BOTH of the following criteria are met: 1. The off-label use is not contraindica, wesley by the FDA 2. The drug is an FDA-approved drug and has been proven safe, effective and accepted for the treatment of your patient's condition, as shown by supporting documentation. either of the following: [facility] Formulary Service D, rug Information (AHFS DI) OR results of a controlled clinical studies published in at leastt two peer reviewed, [place] language medical journals. At the present time, this drug is considered non-standard therapy for this diagnosis and falls under th, e category of experimental, investigational or unproven. Patient Notified of Denial: No Additional Information from insurance carrier. Please see below: None For any questions relating to this denial please reach out directly to your section's specialty pharmacist, or the specialty pharmacy team at [facility] documented in this encounter Plan of Treatment Upcoming Encounters Date Type Department Care Team (Late st Contact Info) Description 02/24/2024 9:00 AM EDT Office Visit Hematology/Oncology at [address] [phone] Shon Coates MD [facility] [place] [address] HEMATOLOGY AND ONCOLOGY [place], [place] [address] 02/24/2024 9:30 AM EDT Infusion Hematology Oncology at [address] [phone] 03/02/2024 11:00 AM EDT Office Visit Hematology/Oncology at [address] [phone] Shon Coates MD [facility] [place] [address] HEMATOLOGY AND ONCOLOGY [place], [place] [address] 03/02/2024 12:30 PM EDT Infusion Hematology Oncology at [address] [phone] 03/09/2024 10:00 AM EDT Office Visit Hematology/Oncology at [address] [phone] Shon Coates MD [facility] [place] [address] [address] Pitts [address] [place] [address] 03/09/2024 10:30 AM EDT Infusion Hematology Oncology at [address] [phone] documented as of this encounter Goals Goal [...] on filedocumented in this encounter Care Teams Thermo Cementing Folder Operator Relationship Specialty Start Date End Date Jerzy Vidal MD [address] [place] [address] [place] [address] PCP - [facility] Medicine 12/04/18 documented as of this encounter
--- OUTSIDE RECORDS SUMMARY | 2024-02-24 01:22 | XMS_ITS | Encounter Summary ---
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 - KEYTRUDA / PEMBROLIZUMAB Shon Schneider MD [facility] [place] [address] Stj Hem Onc Infusion [address] [place] [phone] Referral ID Status Reason Start Date Expiration Date Visits Re quested Visits Authorized [id number] Closed 09/25/2019 01/17/2021 10 10 Encounter Details Date Type Department Care Team (Late st Contact Info) Description 01/18/2020 9:00 AM EDT Infusion Hematology Oncology at [address] [phone] Thymic carcinoma Social History Tobacco Use Types Packs/Day Years Used Date Smoking Tobacco: Never Smokeless Tobacco: Never Sex and Gender Information Value Date Recorded Sex Assigned at Not on file Gender Identity Not on file Sexual Orientation Not on file documented as of this encounter Progress Notes * Indigo Price RN - 01/18/2020 9:00 AM EDT INFUSION THERAPY ADMINISTRATION NOTES DIAGNOSIS: Thymic Cancer CYCLE #: Cycle 8, Day 1 - Pembrolizumab REASON FOR VISIT: To receive chemotherapy. SUBJECTIVE: Moncia Jaramillo offers no complaints. OBJECTIVE: VSS. Seen by provider. Ready to treat. LAB DATA: 01/10/20 - IV ACCESS: Port accessed without difficulty, flushes readily with brisk blood return. Pre administration: Chemotherapy orders independently verified for drug name, route, and dosage per patient's height, weight and BSA by INDIGO PRICE RN and Bryce Hawley [facility]. REACTIONS (DESCRIPTION, TIME, INTERVENTION AND EFFECTIVENESS) none ASSESSMENT Monica Jaramillo was awake, alert and she tolerated treatment well. Port flushed with 20 cc's of NS and 500 units of heparin and de-accessed. PLAN Return to clinic in 3 weeks. documented in this encounter Plan of Treatment Upcoming Encounters Date Type Department Care Team (Late st Contact Info) Description 02/24/2024 9:00 AM EDT Office Visit Hematology/Oncology at [address] [phone] Shon Schneider MD [facility] [place] [address] [place] [address] 02/24/2024 9:30 AM EDT Infusion Hematology Oncology at [address] [phone] 03/02/2024 11:00 AM EDT Office Visit Hematology/Oncology at [address] [phone] Shon Schneider MD [facility] [place] [address] [address] HEMATOLOGY AND ONCOLOGY [place], [place] [id number] 03/02/2024 12:30 PM EDT Infusion Hematology Oncology at [address] [phone] 03/09/2024 10:00 AM EDT Office Visit Hematology/Oncology at [address] [phone] Shon Schneider MD [facility] [place] [place] [address] HEMATOLOGY AND ONCOLOGY [place], [place] [phone] 03/09/2024 10:30 AM EDT Infusion Hematology Oncology at [address] [phone] documented as of this [...] 500 Units, Intravenous, ONCE PRN, Starting on Tue01/18/20 at 0931, Until Tue01/18/20 at 1409, Line Care, Refer to Intravenous (IV) Procedure: Accessing Implanted Vascular Access Devices (444) procedure and/or Intravenous (IV) Job Aid: Adult Flushing & Catheter Care (8172) job aid for additional information regarding guidelines and administration., Routine Given 01/18/2020 10:52 AM EDT 500 Units pembrolizumab (KEYTRUDA) 200 mg in sodium chloride 0.9% 108 mL infusion 200 mg, Intravenous, ONCE, 1 dose, On Tue01/18/20 at 1045, Administer over 30 Minutes, Flush line with NS after each dose., This agent is restricted to outpatient use. Is this drug being given as an outpatient? Yes New Bag 01/18/2020 10:22 AM EDT 200 mg 216 mL/hr sodium chloride 0.9 % (flush) flush 5-20 mL 5-20 mL, Intravenous, EVERY 1 MIN PRN, Starting on Tue01/18/20 at 0931, Until Tue01/18/20 at 1409, Line Care, Flush pertains to all indwelling lines. Flush per protocol found in the job aid using the link provided on this medication record. Refer to Intravenous (IV) Job Aid: Adult Flushing & Catheter Care (3920) job aid for additional information regarding guidelines and administration., Routine Given 01/18/2020 10:52 AM EDT 20 mLs documented in this encounter Care Teams Ribbon Weaver Relationship Specialty Start Date End Date Jerzy Vidal MD [address] [place] [address] [place] [address] PCP - [facility] Medicine 12/04/18 documented as of this encounter
--- OUTSIDE RECORDS SUMMARY | 2024-02-24 01:22 | XMS_ITS | Encounter Summary ---
Author Organization [facility] Address [facility] [place] [address] Care Team Providers Care Java Web Application Developer Name Role Phone Jerzy Vidal MD Primary Care Provider [phone] Encounter Details Date Type Department Care Team (Late st Contact Info) Description 12/21/2019 Orders Only Hematology/Oncology at [address] [phone] Nadeen Srivastava, RN Social History Tobacco Use Types Packs/Day [...] 9:00 AM EDT Office Visit Hematology/Oncology at [address] [phone] Shon Schneider MD [facility] [place] [address] Ciara Pitts APRN [address] [place] [address] DR HEMATOLOGY AND ONCOLOGY [place], [place] [address] 02/24/2024 9:30 AM EDT Infusion Hematology Oncology at [address] [phone] 03/02/2024 11:00 AM EDT Office Visit Hematology/Oncology at [address] [phone] Shon Schneider MD [facility] [place] [address] HEMATOLOGY AND ONCOLOGY [place], [place] [phone] 03/02/2024 12:30 PM EDT Infusion Hematology Oncology at [address] [phone] 03/09/2024 10:00 AM EDT Office Visit Hematology/Oncology at [address] [phone] Shon Schneider MD [facility] [place] [address] [address] HEMATOLOGY AND ONCOLOGY [place], [place] [phone] 03/09/2024 10:30 AM EDT Infusion Hematology Oncology at [address] [phone] documented as of this encounter Goals Goal [...] filedocumented in this encounter Care Teams Java Web Application Developer Relationship Specialty Start Date End Date Jerzy Vidal MD [address] [place] [address] [place] [address] PCP - [facility] Medicine 12/04/18 documented as of this encounter
--- OUTSIDE RECORDS SUMMARY | 2024-02-24 01:22 | XMS_ITS | Encounter Summary ---
Author Organization Formerly [facility] Address [facility] [place] [address] Care Team Providers Care Functional Analyst Name Role Phone Jerzy Vidal MD Primary Care Provider [phone] Encounter Details Date Type Department Care Team (Late st Contact Info) Description 09/28/2019 11:00 AM EDT Office Visit Hematology/Oncology at [address] [phone] Shon Schneider MD [facility] [place] [address] Nadeen Srivastava, RN Thymic carcinoma; Hypomagnesemia Social History Tobacco Use Types Packs/Day Years Used Date Smoking Tobacco: Never Smokeless Tobacco: Never Sex and Gender Information Value Date Recorded Sex Assigned at Not on file Gender Identity Not on file Sexual Orientation Not on file documented as of this encounter Last Filed Vital Signs Vital Sign Reading Time Taken Comments Blood Pressure 134/71 09/28/2019 10:55 AM EDT Pulse 85 09/28/2019 10:55 AM EDT Temperature 36.3 ??C (97.3 ??F) 09/28/2019 1 0:55 AM EDT Respiratory Rate 16 09/28/2019 10:5 5 AM EDT Oxygen Saturation 100% 09/28/2019 10: 55 AM EDT Inhaled Oxygen Concentration - - Weight 124.6 kg (274 lb 12.8 oz) 2019 10:55 AM EDT Height 176 cm (5' 9.29) 09/28/2019 10: 55 AM EDT Body Mass Index 40.24 09/28/2019 10:55 AM EDT documented in this encounter Progress Notes * Shon Schneider MD - 09/28/2019 11:00 AM EDT Subjective: Patient ID: Monica [...] B. Biopsy of mediastinal mass 03/29 Path ([facility] review) - Mediastinum, mass, biopsy: 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 [facility] - CONSULT SLIDES FROM [facility]; [place], [place]: A. MEDIASTINUM, MASS, BIOPSY ([id number]; 03/22/2017): ? 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 ?Immunohistochemistry performed at the outside institution and reviewed at [facility] demonstrates the following staining profile in lesional cells: ? Positive - AE1/AE3, p40, PAX8, CD117, CD5(multifocal), CK7(scattered cells), synaptophysin, chromogranin ? Negative - CK20, TTF-1, GATA3, CD34 ? The immunohistochemical profile supports the above diagnosis. ? Ki67 (MIB-1) proliferation index performed at the referring institution and reviewed at [facility] is focally up to ~30%. NOTE: While diffuse synaptophysin and chromogranin expression is unusual for conventional thymic carcinoma, the overall histomorphology and immunophenotype is most in keeping with THYMIC SQUAMOUS CARCINOMA.?The extent of PAX8 and CD117 staining would be unusual for Nut carcinoma. B. MEDIASTINUM, ANTERIOR, 4.5 CM, ULTRASOUND GUIDED FINED NEEDLE ASPIRATION ([id number]; 03/22/17): The cytologic preparations were not reviewed [...] Second opinion with Dr. Roddy Vega in [place]. They reviewed the pathology and concurred they [...] The history is summarized above. Due to restrictions on visitors related to Covid 19, she is by herself in clinic. She began immunotherapy with pembrolizumab on 08/17/19 and has received 2 doses. She has tolerated this very well thus far and feels very well. She says she feels as though nothing is wrong with her. Toward the end of her time on sutent, she was noticing that she tired more easily. Her energy level is good and she feels strong. Her bowels are generally regular. There are times that she has a loose stool and she willtake an immodium morning and night on those days and it resolves. No chest pain, no SOB. Soc Hx: , lives in [place], [place] Tob - Never Etoh - rare [...] is normal. Vitals reviewed. Labs: WBC/ANC - 6.12/4849, Hgb/Hct - 10.4/35.1, Plts - 229,000. BUN/Cr - 12/0.6. Mg - 1.7. Lytes andLFTs o/w unremarkable. LDH - 431 (313-618) TSH [...] mg/day, 2 weeks followed by one w k[place] off, with cycles repeated every three weeks. [...] with pembrolizumab on 08/17/19 and has received two doses. She has tolerated this very well. The Hgb is still low but much better. The platelet count and WBC are WNL. The TSH and T4 are WNL. Will have her continue the same dose of synthroid and recheck in three weeks. 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 She had an elevated fractional excretion of magnesiumand therefore in 01/2019 was started on amiloride. We talked about the potential change in schedule from 200 mg every three weeks to 400 mg every six weeks. She is more comfortable continuing the current therapy schedule and we will do so. We will treat today and see her in three weeks. We will plan a restaging evaluation after the 4th treatment, ie in 6 weeks. We will make a decision at the next visit as to whether the scan will be done at [facility] or [facility]. It will depend on where we are with restrictions on visitors as she wouldneed her to be with her if it were going to be done at [facility]. documented in this encounter Plan of Treatment Upcoming Encounters Date Type Department Care Team (Late st Contact Info) Description 02/24/2024 9:00 AM EDT Office Visit Hematology/Oncology at [address] [phone] Shon Schneider MD [facility] [place] [address] Ciara Pitts, [address] HEMATOLOGY [place] [address] 02/24/2024 9:30 AM EDT Infusion Hematology Oncology at [address] [phone] 03/02/2024 11:00 AM EDT Office Visit Hematology/Oncology at [address] [phone] Shon Schneider MD [facility] [place] [address] [address] HEMATOLOGY [place] [address] 03/02/2024 12:30 PM EDT Infusion Hematology Oncology at [address] [phone] 03/09/2024 10:00 AM EDT Office Visit Hematology/Oncology at [address] [phone] Shon Schneider MD [facility] [place] [address] Ciara Pitts APRN [address] [place] [address] DR HEMATOLOGY AND ONCOLOGY [place], [place] [phone] 03/09/2024 10:30 AM EDT Infusion Hematology Oncology at [address] [phone] documented as of this encounter Goals Goal Patient Goal Type Associated Problems Recent Progress Patient-Stated? 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
--- OUTSIDE RECORDS SUMMARY | 2024-02-24 01:22 | XMS_ITS | Encounter Summary ---
Author Organization [facility] [place] [address] Care Team Providers Care Wood Dowel Machine Operator Name Role Phone Jerzy Vidal MD Primary Care Provider [phone] Reason for Visit * Reason Onset Date Comments Labs Only 08/30/2019 lab tracking Encounter Details Date Type Department Care Team (Late st Contact Info) Description 08/30/2019 Telephone Hematology/Oncology at [address] [phone] Brionna Andrade RN Labs Only (lab tracking) Social History Tobacco Use Types Packs/Day Years Used Date Smoking Tobacco: Never Smokeless Tobacco: Never Sex and Gender Information Value Date Recorded Sex Assigned at Not on file Gender Identity Not on file Sexual Orientation Not on file documented as of this encounter Miscellaneous Notes * Telephone Encounter - Brionna Andrade RN - 08/30/2019 1:41 PM EDT LAB TRACKING Brayan Pierre [id number] DIAGNOSIS: Thymic cancer LABS ORDERED: cbc diff, cmp, mag MEDICATIONS: Pembrolizumab started 08/17/19 Standing transfusion orders from PCP at [facility] Assessment/Plan: Pt received two units of blood last week. Cbc repeated today. HBG 9.5. No transfusion required at this time. Pt due for next pembrolizumab next week. Dr. Schneider and odalis Srivastava VEHICLE LEASING AND RENTAL MANAGER updated via this note. Results for BRAYAN PIERRE ( ) as of 08/30/2019 13:45 Ref. Range 07/19/2019 00:00 07/31/2019 08:00 07/31/2019 09:49 08/23/2019 00:00 08/30/2019 00:00 WBC Unknown 1.8 2.6 (L) 4.4 4.7 RBC Latest Ref Range: 4.00 - 5.21 x10(6)/mcL 2.18 (L) Hemoglobin Unknown 6.9 8.5 (L) 7.4 9.5 Hematocrit Unknown 20.8 26.3 (L) 24.0 30.9 MCV Latest Ref Range: 82.6 - 94.4 fL 120.6 (H) MCH Latest Ref Range: 27.1 - 32.0 pg 39.0 (H) MCHC Latest Ref Range: 31.7 - 35.0 gm/dL 32.3 RDWSD Latest Ref Range: 37.0 - 46.0 fL 88.2 (H) RDWCV Latest Ref Range: 11.5 - 14.1 % 20.5 (H) Platelets Unknown 88 114 (L) 171 212 MPV Latest Ref Range: 7.6 - 12.[address] % Unknown 3.8 nRBC % Auto Latest Units: % 0.0 nRBC Abs Auto Latest Ref Range: 0.000 - 0.000 x10(3)/mcL 0.000 Neutr Abs (ANC) Unknown 1.1 1.55 (L) 3.2 3.63 documented in this encounter Plan of Treatment Upcoming Encounters Date Type Department Care Team (Late st Contact Info) Description 02/24/2024 9:00 AM EDT Office Visit Hematology/Oncology at [address] [phone] Shon Schneider MD [facility] [place] [address] Ciara Pitts APRN [address] [place] [address] HEMATOLOGY AND ONCOLOGY [place], [place] [address] 02/24/2024 9:30 AM EDT Infusion Hematology Oncology at [address] [phone] 03/02/2024 11:00 AM EDT Office Visit Hematology/Oncology at [address] [phone] Shon Schneider MD [facility] [place] [address] [address] HEMATOLOGY AND ONCOLOGY [place], [place] [address] 03/02/2024 12:30 PM EDT Infusion Hematology Oncology at [address] [phone] 03/09/2024 10:00 AM EDT Office Visit Hematology/Oncology at [address] [phone] Shon Schneider MD [facility] [place] [address] [address] HEMATOLOGY AND ONCOLOGY [place], [place] [address] 03/09/2024 10:30 AM EDT Infusion Hematology Oncology at [address] [phone] documented as of this encounter Goals Goal [...] Associated Diagnosis Comments CBC (WITH DIFF) Routine 08/30/2019 CBC (WITH DIFF) Routine 08/23/2019 documented in this encounter Results * CBC (with Diff) (08/30/2019) White Blood Cell 4.7 Hemoglobin 9.5 Hematocrit 30.9 Platelet 212 Neutrophil Absolute (ANC) - Automated 3.63 Magnesium 1.4 mg/dL Blood specimen (specimen) 08/30/2019 Historical Provider HEMATOLOGY ORDERA BLES * CBC (with Diff) (08/23/2019) White Blood Cell 4.4 Hemoglobin 7.4 Hematocrit 24.0 Platelet 171 Neutrophil Absolute (ANC) - Automated 3.2 Blood specimen (specimen) 08/23/2019 Historical Provider HEMATOLOGY ORDERA BLES documented in this encounter Visit Diagnoses Not on filedocumented in this encounter Care Teams Wood Dowel Machine Operator Relationship Specialty Start Date End Date Jerzy Vidal MD [address] [place] [address] [place] [address] PCP - [facility] Medicine 12/04/18 documented as of this encounter
--- OUTSIDE RECORDS SUMMARY | 2024-02-24 01:22 | XMS_ITS | Encounter Summary ---
Author Organization [facility] [place] [address] Care Team Providers Care Tobacco Wrapping Machine Tender Name Role Phone Jerzy Vidal MD Primary Care Provider Reason for Visit * Reason Onset Date Comments Vaginal Bleeding 01/11/2020 Encounter Details Date Type Department Care Team (Late st Contact Info) Description 01/11/2020 Telephone Hematology/Oncology at [address] [phone] Rachel Chavez RN Vaginal Bleeding Social History Tobacco Use Types Packs/Day Years Used Date Smoking Tobacco: Never Smokeless Tobacco: Never Sex and Gender Information Value Date Recorded Sex Assigned at Not on file Gender Identity Not on file Sexual Orientation Not on file documented as of this encounter Miscellaneous Notes * Telephone Encounter - Rachel Richardson RN - 01/11/2020 10:06 AM EDT reschedule to next week. Called to confirm plan with Monica. States she called Dr. Vidal's office and left a message. States if she doesn't hear from them within the next couple of hours [facility]. Asked Monica to please call us back when her plan manifested. Discussed that [facility] could call at [phone] and ask for the Oncologist institutional cook if it was after hours and no one in [facility] was available. Verbalized Understanding * Telephone Encounter - Rachel Richardson RN - 01/11/2020 10:00 AM EDT Patient calls and reports she started with heavy vaginal bleeding two days ago. States she is goingthrough 1 pad per hour. Large clots. Feels some cramping, but reports otherwise feeling well. SOB now resolved. Reports having fibroids with bleeding in the past. Asked about lab work from yesterday.Reported to patient that labs look good. Hemaglobin is stable, Hematocrit is up, and thyroid level w ithin the normal range. Discussed that patient should call her PCP to be seen. Discussed with Dr Schneider and he concurs: labs look good and patient needs to be seen by primary. States we should hold treatment today until bleeding is followed up on and resolved. Reschedule to ne documented in this encounter Plan of Treatment Upcoming Encounters Date Type Department Care Team (Late st Contact Info) Description 02/24/2024 9:00 AM EDT Office Visit Hematology/Oncology at [address] [phone] Shon Schneider MD [facility] [place] [address] Ciara Pitts [address] HEMATOLOGY [place] [address] 02/24/2024 9:30 AM EDT Infusion Hematology Oncology at [address] [phone] 03/02/2024 11:00 AM EDT Office Visit Hematology/Oncology at [address] [phone] Shon Schneider MD [facility] [place] [address] Ciara Pitts [address] HEMATOLOGY AND ONCOLOGY [place], [place] [address] 03/02/2024 12:30 PM EDT Infusion Hematology Oncology at [address] [phone] 03/09/2024 10:00 AM EDT Office Visit Hematology/Oncology at [address] [phone] Shon Schneider MD [facility] [place] [address] [address] HEMATOLOGY AND ONCOLOGY [place], [place] [phone] 03/09/2024 10:30 AM EDT Infusion Hematology Oncology at [address] [phone] documented as of this encounter [...] on filedocumented in this encounter Care Teams Tobacco Wrapping Machine Tender Relationship Specialty Start Date End Date Jerzy Vidal MD [address] [place] [address] [place] [address] PCP - General [facility] Medicine 12/04/18 documented as of this encounter
--- OUTSIDE RECORDS SUMMARY | 2024-02-24 01:22 | XMS_ITS | Encounter Summary ---
Author Organization [facility] Address [facility] [place] [address] Care Team Providers Care Medical Professionals Name Role Phone Jerzy Vidal MD Primary Care Provider [phone] Encounter Details Date Type Department Care Team (Late st Contact Info) Description 12/21/2019 9:30 AM EDT Office Visit Hematology/Oncology at [address] [phone] Shon Schneider MD [facility] [place] [address] Nadeen Srivastava, RN Thymic carcinoma Social History Tobacco Use Types Packs/Day Years Used Date Smoking Tobacco: Never Smokeless Tobacco: Never Sex and Gender Information Value Date Recorded Sex Assigned at Not on file Gender Identity Not on file Sexual Orientation Not on file documented as of this encounter Last Filed Vital Signs Vital Sign Reading Time Taken Comments Blood Pressure 139/79 12/21/2019 9:29 AM EDT Pulse 88 12/21/2019 9:29 AM EDT Temperature 36.2 ??C (97.2 ??F) 12/21/2019 9:29 AM ED T Respiratory Rate 22 12/21/2019 9:29 AM EDT Oxygen Saturation 99% 12/21/2019 9:29 AM EDT Inhaled Oxygen Concentration - - Weight 123.4 kg (272 lb) 12/21/2019 9:29 AM EDT Height 176 cm (5' 9.29) 12/21/2019 9:29 AM EDT copied Body Mass Index 39.83 12/21/2019 9:29 AM EDT documented in this encounter Progress Notes * Nadeen Srivastava, [employer]AR[employer]DEL MAKER - 12/21/2019 9:30 AM EDT Subjective: Encounter Diagnosis Name Primary? Thymic carcinoma Patient Active Problem List Diagnosis Code ??? Thymic carcinoma C37 ??? Pancytopenia D61.818 ??? Atrial fibrillation I48.91 ??? Essential hypertension I10 ??? Hypothyroidism E03.9 Patient ID: Monica Jaramillo is a 64 y.o. female. HPI: 1. Thymic carcinoma, stage IV A. Presented to the ED with increasing SOB, h/o atrial fibrillation on apixaban. CT was done with PE protocol and she was found to have an anterior mediastinal mass measuring 8.8 x 8.8 x 4.8 cm and a moderately large sized left pleural effusion with compression atelectasis. transferred to [facility] for further evaluation and workup and [...] Women's review - CONSULT SLIDES FROM ; [place], [place]: A. MEDIASTINUM, MASS, BIOPSY ([id number]; 03/22/2017): ? 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 ?Immunohistochemistry performed at the outside institution and reviewed at [facility] demonstrates the following staining profile in lesional cells: ? Positive - AE1/AE3, p40, PAX8, CD117, CD5(multifocal), CK7(scattered cells), synaptophysin, chromogranin ? Negative - CK20, TTF-1, GATA3, CD34 ? The immunohistochemical profile supports the above diagnosis. ? Ki67 (MIB-1) proliferation index performed at the referring institution and reviewed at [facility] is focally up to ~30%. NOTE: While diffuse synaptophysin and chromogranin expression is unusual for conventional thymic carcinoma, the overall histomorphology and immunophenotype is most in keeping with THYMIC SQUAMOUS CARCINOMA.?The extent of PAX8 and CD117 staining would be unusual for Nut carcinoma. B. MEDIASTINUM, ANTERIOR, 4.5 CM, ULTRASOUND GUIDED FINED NEEDLE ASPIRATION ([id number]; 03/22/17): The cytologic preparations were not reviewed [...] Second opinion with Dr. Roddy Vega in [place]. They reviewed the pathology and concurred they [...] evidence of metastatic disease below the diaphragm. 2. H/o atrial fibrillation 3. HTN 4. [...] indices suggesting LV filling pressures. (LVEF 60-65%). Interval History: Monica returns to the [facility] today to continue therapy with pembrolizumab for her thymic cancer. She is feeling anxious today. She was teary at the beginning of her visit but settled down after talking for awhile. She has a h/o panic attacks and is used to having her in the visit with her. Due to COVID she has had to come by herself. She is complaining of an increased shortness of breath. She has noticed it with the last couple of treatments. The first time it just lasted acouple days, the second time a few more days and this last treatment it was about a week. Denies any cough. She checks her saturation at home and that has been normal. She denies increased edema or palpitations. She doesn't notice the SOB at rest but it is noticeable with any activity. No wheezing.She is eating well and has actually lost a few lbs. She has occasional loose stools for which she uses immodium. No diarrhea or abdominal pain. No rash. She denies any headaches, vision change or chest pain. No fevers, chills or signs of infection. Denies any difficulty swallowing. 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 Fam Hx: No h/o cancer Review of Systems Constitutional: Negative for activity change, appetite change, fatigue, fever and unexpected weightchange. HENT: Negative. Negative for mouth sores and trouble swallowing. Eyes: Negative for visual disturbance. Respiratory: Positive for shortness of breath. Negative for cough and wheezing. Cardiovascular: Negative for chest pain and leg swelling. Gastrointestinal: Negative for abdominal pain, diarrhea and nausea. Bowel habits - see above Genitourinary: Negative. Negative for difficulty urinating. Musculoskeletal: Positive for arthralgias. Skin: Negative. Neurological: Negative. Hematological: Negative. Negative for adenopathy. Psychiatric/Behavioral: The patient is nervous/anxious. All other systems reviewed and are negative. Objective: Physical Exam Constitutional: She is oriented to person, place, and time. She appears well- developed and well-nourished. No distress. HENT: Head: Normocephalic and atraumatic. Mouth/Throat: Oropharynx is clear and moist. No oropharyngeal exudate. Eyes: No scleral icterus. Neck: No tracheal deviation present. No thyromegaly present. Cardiovascular: Normal rate and regular rhythm. Pulmonary/Chest: Effort normal and breath sounds normal. No respiratory distress. She has no wheezes. Diminished sounds at left base Abdominal: Bowel sounds are normal. She exhibits no distension. There is no abdominal tenderness. Musculoskeletal: General: Edema present. Comments: Mild bilateral LE edema Lymphadenopathy: She has no cervical adenopathy. Neurological: She is alert and oriented to person, place, and time. Coordination normal. Skin: Skin is warm and dry. No rash noted. Psychiatric: She has a normal mood and affect. Her behavior is normal. Vitals reviewed. Labs: 12/20/19- WBC-8.6 Hgb/Hct-12.2/38.5 Plt-187 ANC-6.65 BUN/Cr-11/0.70 Ca-9.8 K+-4.0 Alk phos-71 ALT-14 AST-36 LDH-370 Mg-1.7 TSH-1.81 FT4-1.30 11/29/19- WBC-7.2 Hgb/Hct-11.6/36.6 Plt-168 [place]-4.48 BUN/Cr-8/0.60 Lytes and LFTS unremarkable Mg-1.8 LDH-378 TSH-1.35 FT4-1.05 WBC/ANC - 5.587/3910, Hgb/Hct - 10.3/33.2, Plts - 193,000. BUN/Cr - 10/0.6. Mg - 1.5. Lytes and LFTs o/w unremarkable. LDH - 395 (313-618) TSH - 1.37, free T4 - 1.26 CT personally reviewed, report above Assessment and Plan: Ms. [...] mg/day, 2 weeks followed by one w morongo off, with cycles repeated every three weeks. [...] continue the sunitinib and repeat the CT. She had a restaging CT scan done 08/10/19. This showed two small but new nodules in the left lower lung. The pericardial nodule was read as stable but appeared that it may be slightly larger. Overall, it appeared that she had slow progression of disease. She returns today for C7 of pembrolizumab. No evidence of any clinical toxicities. She is tolerating the therapy well. She had a high PD-L1 score. She began immunotherapy with pembrolizumab on 08/17/19 and has received several doses. She has tolerated this very well. The TSH and T4 are WNL. Will have her continue the same dose of synthroid and recheck in three weeks. Magnesium levels have been normal. She is complaining of shortness of breath today. She began noticing it about 9 weeks ago. She thought it was right after the infusion of pembrolizumab. It has slowly been increasing in duration. The first time it lasted a couple of days and today she feels like it started on Tuesday and she is VASQUEZ today. At rest she is fine and her sats are normal. Her PE essentially normal today. She has diminshed lung sounds in left base. No cough. We will get her restaging CT after this treatment instead of waiting for one more cycle. Her atrial fib has been in control - she denies palpitations. She is on Eliquis BID. Last ECHO was on 08/09/19. EF-60-65%. PAP 35-40. Plan: 1. Proceed with C7 pembrolizumab today. 2. CBC,CMP, LDH, TSH, FT4, Mg in [address] scan before C8. 4. Follow up visit in 3 weeks with labs and infusion and scans. documented in this encounter Plan of Treatment Upcoming Encounters Date Type Department Care Team (Late st Contact Info) Description 02/24/2024 9:00 AM EDT Office Visit Hematology/Oncology at [address] [phone] Shon Schneider MD [facility] [place] [address] Ciara Pitts [address] HEMATOLOGY [place] [address] 02/24/2024 9:30 AM EDT Infusion Hematology Oncology at [address] [phone] 03/02/2024 11:00 AM EDT Office Visit Hematology/Oncology at [address] [phone] Shon Schneider MD [facility] [place] [address] Ciara Pitts [address] HEMATOLOGY [place] [address] 03/02/2024 12:30 PM EDT Infusion Hematology Oncology at [address] [phone] 03/09/2024 10:00 AM EDT Office Visit Hematology/Oncology at [address] [phone] Shon Schneider MD [facility] [place] [address] Ciara Pitts [employer] [address] [place] [address] DR HEMATOLOGY [place] [address] 03/09/2024 10:30 AM EDT Infusion Hematology Oncology at [address] [phone] documented as of this encounter Goals Goal [...] documented in this encounter Care Teams Medical Professionals Relationship Specialty Start Date End Date Jerzy Vidal MD [address] [place] [address] [place] [address] PCP - [facility] 12/04/18 documented as of this encounter
--- OUTSIDE RECORDS SUMMARY | 2024-02-24 01:22 | XMS_ITS | Encounter Summary ---
Author Organization [facility] [place] [address] Care Team Providers Care Heater Operator Helper Name Role Phone Jerzy Vidal MD Primary Care Provider [phone] Encounter Details Date Type Department Care Team (Late st Contact Info) Description 01/18/2020 8:30 AM EDT Office Visit Hematology/Oncology at [address] [phone] Nadeen Srivastava, RN Thymic carcinoma; Hypomagnesemia; Abnormal uterine bleeding Social History Tobacco Use Types Packs/Day Years Used Date Smoking Tobacco: Never Smokeless Tobacco: Never Sex and Gender Information Value Date Recorded Sex Assigned at Not on file Gender Identity Not on file Sexual Orientation Not on file documented as of this encounter Last Filed Vital Signs Vital Sign Reading Time Taken Comments Blood Pressure 145/81 01/18/2020 8:37 AM EDT Pulse 65 01/18/2020 8:37 AM EDT Temperature 36.4 ??C (97.5 ??F) 01/18/2020 8:37 AM ED T Respiratory Rate 18 01/18/2020 8:37 AM EDT Oxygen Saturation 98% 01/18/2020 8:37 AM EDT Inhaled Oxygen Concentration - - Weight 123.4 kg (272 lb) 01/18/2020 8:37 AM EDT Height 177.8 cm (5' 10) 01/18/2020 8:37 AM EDT Body Mass Index 39.03 01/18/2020 8:37 AM EDT documented in this encounter Progress Notes * Nadeen Srivastava, WASTE PICKER - 01/18/2020 8:30 AM EDT Encounter Diagnoses Name Primary? Thymic carcinoma ??? Hypomagnesemia ??? Abnormal uterine bleeding Patient Active Problem List Diagnosis Code ??? Thymic carcinoma C37 ??? Pancytopenia D61.818 ??? Atrial fibrillation I48.91 ??? Essential hypertension I10 ??? Hypothyroidism E03.9 Subjective: Patient ID: Monica Jaramillo is a [...] pleural effusion with compression atelectasis. transferred to [facility] for further [...] CONSULT SLIDES FROM [facility]; [place], [place]: A. MEDIASTINUM, MASS, BIOPSY ([id number]; 03/22/2017): ? 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 ?Immunohistochemistry performed at the outside institution and reviewed at [facility] demonstrates the following staining profile in lesional cells: ? Positive - AE1/AE3, p40, PAX8, CD117, CD5(multifocal), CK7(scattered cells), synaptophysin, chromogranin ? Negative - CK20, TTF-1, GATA3, CD34 ? The immunohistochemical profile supports the above diagnosis. ? Ki67 (MIB-1) proliferation index performed at the referring institution and reviewed at [facility] is focally up to ~30%. NOTE: While diffuse synaptophysin and chromogranin expression is unusual for conventional thymic carcinoma, the overall histomorphology and immunophenotype is most in keeping with THYMIC SQUAMOUS CARCINOMA.?The extent of PAX8 and CD117 staining would be unusual for Nut carcinoma. B. MEDIASTINUM, ANTERIOR, 4.5 CM, ULTRASOUND GUIDED FINED NEEDLE ASPIRATION ([id number]; 03/22/17): The cytologic preparations were not reviewed [...] Second opinion with Dr. Roddy Vega in [place]. They reviewed the pathology and concurred they [...] suggesting LV filling pressures. (LVEF 60-65%). Interval HPI: Monica returns to the [facility] today to continue therapy with pembrolizumab for her thymic cancer. She is accompanied by her . Monica called into the clinic on January 10 complaining of heavy vaginal bleeding with large clots for 2 days. She was able to get in and see Dr. Rob [facility]. She had an endometrial biopsy done and is waiting for the results. She had the bleeding for 3 days and has had no further bleeding. She states the shortness of breath she was having has resolved. She has had no further episodes. Denies any cough. She checks her saturation at home and that has been normal. She denies increased edema or palpitations. No wheezing. She is eating well- no change in appetite. She is fatigued. She has poor sleep habits. She has occasional loose stools for which she uses immodium. No diarrhea or abdominal pain. No rash. She denies any headaches, vision change orchest pain. No fevers, chills or signs of infection. Denies any difficulty swallowing. 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 Fam Hx: No h/o cancer Review of Systems Constitutional: Negative for activity change, appetite change, fatigue, fever and unexpected weightchange. HENT: Negative. Negative for mouth sores and trouble swallowing. Eyes: Negative for visual disturbance. Respiratory: Negative for cough, shortness of breath and wheezing. Cardiovascular: Negative for chest pain and leg swelling. Gastrointestinal: Negative for abdominal pain, diarrhea and nausea. Bowel habits - see above Genitourinary: Positive for vaginal bleeding. Negative for difficulty urinating. Musculoskeletal: Positive for arthralgias. Skin: Negative. Neurological: Negative. Negative for dizziness and headaches. Hematological: Negative. Negative for adenopathy. Psychiatric/Behavioral: The [...] No respiratory distress. She has no wheezes. Abdominal: Bowel sounds are normal. She exhibits [...] Her behavior is normal. Vitals reviewed. Labs: 01/10/20- WBC-7.9 Hgb/Hct-12.2/39.0 MCV-102.1 Plt-186 ANC-5.84 BUN/Cr-11/0.70 Ca-10.1 Na-138 K+-4.3 LFTS unremarkable LDH-365 Mg-1.6 TSH-1.54 12/20/19- WBC-8.6 Hgb/Hct-12.2/38.5 Plt-187 ANC-6.65 BUN/Cr-11/0.70 Ca-9.8 [...] on 04/15/18 for a hemoglobin of 7. She began sunitinib on 06/24/18 (50 pg PO per day for 4 weeks followed by 2 weeks off with cycles repeated every 6 weeks). She had problems with myelosuppression and her CT showed slow progression of her disease so sunitinib was discontinued. She had a high PD-L1 score. She began immunotherapy with pembrolizumab on 08/17/19 and has received several doses. She has tolerated this very well. On 01/11/20 she had a 3 day episode of vaginal bleeding with clots. She saw Dr. Rob [facility] and is waiting for her endometrial biopsy results. She has had no further bleeding. She is on Eliquis 5mgBID. TSH level is 1.54. Monica returns today for C8 Pembrolizumab. Overall she is feeling well. She has had no further Vaginal bleeding. Her shortness of breath has resolved. She is fatigued today. We will proceed withthe Pembrolizumab today as scheduled and see her back in 3 weeks. She has not had her CT scan yet but heard from Victorino and anticipates that it will be scheduled soon. Plan: 1. Proceed with C8 pembrolizumab today. 2. CBC,CMP, LDH, TSH, FT4, Mg in [address] scan pending. 4. Follow up with [facility] re: endometrial biopsy. 5. Follow up visit in 3 weeks with labs and infusion and scans. documented in this encounter Plan of Treatment Upcoming Encounters Date Type Department Care Team (Late st Contact Info) Description 02/24/2024 9:00 AM EDT Office Visit Hematology/Oncology at [address] [phone] Shon Schneider MD [facility] [address] Ciara Pitts [address] HEMATOLOGY AND ONCOLOGY [place], [place] [id number] 02/24/2024 9:30 AM EDT Infusion Hematology Oncology at [address] [phone] 03/02/2024 11:00 AM EDT Office Visit Hematology/Oncology at [address] [phone] Shon Schneider MD [facility] [address] Ciara Pitts [address] HEMATOLOGY AND ONCOLOGY [place], [place] [id number] 03/02/2024 12:30 PM EDT Infusion Hematology Oncology at [address] [phone] 03/09/2024 10:00 AM EDT Office Visit Hematology/Oncology at [address] [phone] Shon Schneider MD [facility] [place] [address] Ciara Pitts [address] HEMATOLOGY AND ONCOLOGY [place], [place] [address] 03/09/2024 10:30 AM EDT Infusion Hematology Oncology at [address] [phone] documented as of this encounter Goals Goal Patient Goal Type Associated Problems Recent Progress Patient-Stated? Author DH Home Medication Compliance and Understanding Patient Facing Action Plan On track( 019 3:22 PM EST) No Ivana Vanegas, [facility] Note: Remain 95% or better adherent to chemotherapy without severe side effects as assessed by days supply and patient reported adverse events at each refill documented as of this encounter Visit Diagnoses Diagnosis Thymic carcinoma Malignant neoplasm of thymus Hypomagnesemia Disorders of magnesium metabolism Abnormal uterine bleeding Unspecified disorder of menstruation and other abnormal bleeding from female genital tract Thymic carcinoma Malignant neoplasm of thymus documented in this encounter Care Teams Heater Operator Helper Relationship Specialty Start Date End Date Jerzy Vidal MD [address] [place] [address] [place] [address] PCP - [facility] Medicine 12/04/18 documented as of this encounter
--- OUTSIDE RECORDS SUMMARY | 2024-02-24 01:22 | XMS_ITS | Encounter Summary ---
Author Organization [facility] Address [facility] [place] [address] Care Team Providers Care Basketball Assembler Name Role Phone Jerzy Vidal MD Primary Care Provider [phone] Encounter Details Date Type Department Care Team (Late st Contact Info) Description 11/30/2019 11:30 AM EDT Office Visit Hematology/Oncology at [address] [phone] Shon Schneider MD [facility] [place] [address] Nadeen Srivastava, RN Thymic carcinoma Social History Tobacco Use Types Packs/Day Years Used Date Smoking Tobacco: Never Smokeless Tobacco: Never Sex and Gender Information Value Date Recorded Sex Assigned at Not on file Gender Identity Not on file Sexual Orientation Not on file documented as of this encounter Last Filed Vital Signs Vital Sign Reading Time Taken Comments Blood Pressure 135/69 11/30/2019 11:29 AM EDT Pulse 82 11/30/2019 11:29 AM EDT Temperature 35.9 ??C (96.6 ??F) 11/30/2019 1 1:29 AM EDT Respiratory Rate 20 11/30/2019 11:2 9 AM EDT Oxygen Saturation 98% 11/30/2019 11: 29 AM EDT Inhaled Oxygen Concentration - - Weight 125.5 kg (276 lb 9.6 oz) 020 11:29 AM EDT Height 176 cm (5' 9.29) 11/30/2019 11: 29 AM EDT Body Mass Index 40.5 11/30/2019 11:29 AM EDT documented in this encounter Progress Notes * Nadeen Srivastava, OEM SALES MANAGER - 11/30/2019 11:30 AM EDT Subjective: Encounter Diagnosis Name Primary? [...] effusion with compression atelectasis. transferred to [facility] for further [...] B. Biopsy of mediastinal mass 03/29 Path ([facility] review) - Mediastinum, mass, biopsy: 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 [facility] - CONSULT SLIDES FROM [facility]; [place], [place]: A. MEDIASTINUM, MASS, BIOPSY ([id number]; 03/22/2017): ? 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 ?Immunohistochemistry performed at the outside institution and reviewed at [facility] demonstrates the following staining profile in lesional cells: ? Positive - AE1/AE3, p40, PAX8, CD117, CD5(multifocal), CK7(scattered cells), synaptophysin, chromogranin ? Negative - CK20, TTF-1, GATA3, CD34 ? The immunohistochemical profile supports the above diagnosis. ? Ki67 (MIB-1) proliferation index performed at the referring institution and reviewed at [facility] is focally up to ~30%. NOTE: While diffuse synaptophysin and chromogranin expression is unusual for conventional thymic carcinoma, the overall histomorphology and immunophenotype is most in keeping with THYMIC SQUAMOUS CARCINOMA.?The extent of PAX8 and CD117 staining would be unusual for Nut carcinoma. B. MEDIASTINUM, ANTERIOR, 4.5 CM, ULTRASOUND GUIDED FINED NEEDLE ASPIRATION ([id number]; 03/22/17): The cytologic preparations were not reviewed [...] Second opinion with Dr. Roddy Vega in [place]. They reviewed the pathology and concurred they [...] therapy with pembrolizumab L. CT c/a/p 11/06/19 ([facility] second read) - IMPRESSION 1. Worsening left-sided [...] 60-65%). Interval History: Monica returns to the [facility] today to continue therapy with pembrolizumab for her thymic cancer. She is feeling great! She has no specific complaints today. She is eating well and her weight is stable. She has occasional loose stools for which she uses immodium. She usually has to takethem for a couple days and the loose stools will resolve easily. Her energy level is good and she feels strong. She denies any headaches, vision changes, abdominal pain, chest pain, cough or shortness of breath. No fevers, chills or signs of infection. Denies any difficulty swallowing. Soc Hx: , lives in [place], [place] Tob - Never Etoh - rare [...] Her behavior is normal. Vitals reviewed. Labs: 11/29/19- WBC-7.2 Hgb/Hct-11.6/36.6 Plt-168 [place]-4.48 BUN/Cr-8/0.60 Lytes [...] mg/day, 2 weeks followed by one w kalispel off, with cycles repeated every three weeks. [...] therefore in 01/2019 was started on amiloride. She returns today for C6 of pembrolizumab. No evidence of any clinical toxicities. She is tolerating the therapy well. Plan: 1. Proceed with C6 pembrolizumab today. 2. CBC,CMP, LDH, TSH, FT4 in [address] scan after C#8 4. Follow up visit in 3 weeks with labs and infusion. documented in this encounter Plan of Treatment Upcoming Encounters Date Type Department Care Team (Late st Contact Info) Description 02/24/2024 9:00 AM EDT Office Visit Hematology/Oncology at [address] [phone] Shon Schneider MD [facility] [place] [address] Ciara Pitts APRN [address] [place] [address] [place] [address] 02/24/2024 9:30 AM EDT Infusion Hematology Oncology at [address] [phone] 03/02/2024 11:00 AM EDT Office Visit Hematology/Oncology at [address] [phone] Shon Schneider MD [facility] [place] [address] [address] HEMATOLOGY AND ONCOLOGY [place], [place] [address] 03/02/2024 12:30 PM EDT Infusion Hematology Oncology at [address] [phone] 03/09/2024 10:00 AM EDT Office Visit Hematology/Oncology at [address] [phone] Shon Schneider MD [facility] [place] [address] [address] HEMATOLOGY AND ONCOLOGY [place], [place] [id number] 03/09/2024 10:30 AM EDT Infusion Hematology Oncology at [address] [phone] documented as of this encounter [...] thymus documented in this encounter Care Teams Basketball Assembler Relationship Specialty Start Date End Date Jerzy Vidal MD [address] [place] [address] [place] [address] PCP - General [facility] Medicine 12/04/18 documented as of this encounter
--- OUTSIDE RECORDS SUMMARY | 2024-02-24 01:22 | XMS_ITS | Encounter Summary ---
Author Organization 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 Shon Schneider MD [facility] [place] [address] Stj Hem Onc Infusion [address] [place] [phone] Referral ID Status Reason Start Date Expiration Date Visits Re quested Visits Authorized [id number] Closed 09/25/2019 01/17/2021 10 10 Encounter Details Date Type Department Care Team (Late st Contact Info) Description 12/21/2019 10:00 AM EDT Infusion Hematology Oncology at [address] [phone] Thymic carcinoma Social History Tobacco Use Types Packs/Day Years Used Date Smoking Tobacco: Never Smokeless Tobacco: Never Sex and Gender Information Value Date Recorded Sex Assigned at Not on file Gender Identity Not on file Sexual Orientation Not on file documented as of this encounter Progress Notes * Ute Chacon RN - 12/21/2019 10:00 AM EDT INFUSION THERAPY ADMINISTRATION NOTES DIAGNOSIS: Thymic Cancer CYCLE #: Cycle 7, Day 1 - Pembrolizumab REASON FOR VISIT: To receive chemotherapy. SUBJECTIVE: Moncia Jaramillo offers no complaints. OBJECTIVE: VSS. Seen by provider. Ready to treat. LAB DATA: 12/20/19 - WBC - 8.6, H/H - 12.2/38.5, Plt Ct - 187, ANC - 6.65, BUN/CR - 11/0.70, Lytes wnl, MG++ - 1.7 IV ACCESS: Port accessed without difficulty, flushes readily with brisk blood return. Pre administration: Chemotherapy orders independently verified for drug name, route, and dosage per patient's height, weight and BSA by Ute Chacon, RN and Bryce Hawley [facility]. REACTIONS (DESCRIPTION, TIME, INTERVENTION AND EFFECTIVENESS) [...] AM EDT Office Visit Hematology/Oncology at [address] [phone] Shon Schneider MD [facility] [place] [address] Ciara Pitts APRN [address] [place] [address] DR [place] [address] 02/24/2024 9:30 AM EDT Infusion Hematology Oncology at [address] [phone] 03/02/2024 11:00 AM EDT Office Visit Hematology/Oncology at [address] [phone] Shon Schneider MD [facility] [place] [address] HEMATOLOGY AND ONCOLOGY [place], [place] [address] 03/02/2024 12:30 PM EDT Infusion Hematology Oncology at [address] [phone] 03/09/2024 10:00 AM EDT Office Visit Hematology/Oncology at [address] [phone] Shon Schneider MD [facility] [place] [address] HEMATOLOGY AND ONCOLOGY [place], [place] [id number] 03/09/2024 10:30 AM EDT Infusion Hematology Oncology at [address] [phone] documented as of this encounter Goals Goal [...] 500 Units, Intravenous, ONCE PRN, Starting on Tue12/21/19 at 1009, Until Tue12/21/19 at 1356, Line Care, Refer to Intravenous (IV) Procedure: Accessing Implanted Vascular Access Devices (654) procedure and/or Intravenous (IV) Job Aid: Adult Flushing & Catheter Care (3259) job aid for additional information regarding guidelines and administration., Routine Given 12/21/2019 11:37 AM EDT 500 Units pembrolizumab (KEYTRUDA) 200 mg in sodium chloride 0.9% 108 mL infusion 200 mg, Intravenous, ONCE, 1 dose, On Tue12/21/19 at 1130, Administer over 30 Minutes, Flush line with NS after each dose., This agent is restricted to outpatient use. Is this drug being given as an outpatient? Yes New Bag 12/21/2019 11:07 AM EDT 200 mg 216 mL/hr sodium chloride 0.9 % (flush) flush 5-20 mL 5-20 mL, Intravenous, EVERY 1 MIN PRN, Starting on Tue12/21/19 at 1009, Until Tue12/21/19 at 1356, Line Care, Flush pertains to all indwelling lines. Flush per protocol found in the job aid using the link provided on this medication record. Refer to Intravenous (IV) Job Aid: Adult Flushing & Catheter Care (3084) job aid for additional information regarding guidelines and administration., Routine Given 12/21/2019 11:37 AM EDT 20 mLs documented in this encounter Care Teams Metalizer Relationship Specialty Start Date End Date Jerzy Vidal MD [address] [place] [address] [place] [address] PCP - [facility] Medicine 12/04/18 documented as of this encounter
--- OUTSIDE RECORDS SUMMARY | 2024-02-24 01:22 | XMS_ITS | Encounter Summary ---
Author Organization [facility] Address [facility] [place] [address] Care Team Providers Care Survey Superintendent Name Role Phone Jerzy Vidal MD Primary Care Provider [phone] Encounter Details Date Type Department Care Team (Late st Contact Info) Description 11/09/2019 9:00 AM EDT Office Visit Hematology/Oncology at [address] [phone] Shon Schneider MD [facility] [place] [address] Nadeen Srivastava, RN Thymic carcinoma Social History Tobacco Use Types Packs/Day Years Used Date Smoking Tobacco: Never Smokeless Tobacco: Never Sex and Gender Information Value Date Recorded Sex Assigned at Not on file Gender Identity Not on file Sexual Orientation Not on file documented as of this encounter Last Filed Vital Signs Vital Sign Reading Time Taken Comments Blood Pressure 136/76 11/09/2019 9:02 AM EDT Pulse 85 11/09/2019 9:02 AM EDT Temperature 36.5 ??C (97.7 ??F) 11/09/2019 9:02 AM ED T Respiratory Rate 18 11/09/2019 9:02 AM EDT Oxygen Saturation 100% 11/09/2019 9:02 AM EDT Inhaled Oxygen Concentration - - Weight 125.6 kg (277 lb) 11/09/2019 9:02 AM EDT Height 176 cm (5' 9.29) 11/09/2019 9:02 AM EDT Body Mass Index 40.56 11/09/2019 9:02 AM EDT documented in this encounter Progress Notes * Shon Schneider MD - 11/09/2019 9:00 AM EDT Subjective: Patient ID: Monica [...] B. 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 [facility] - CONSULT SLIDES FROM [facility]; [place], [place]: A. MEDIASTINUM, MASS, BIOPSY ([id number]; 03/22/2017): ? MALIGNANT THYMIC EPITHELIAL NEOPLASM consistent [...] 4.5 CM, ULTRASOUND GUIDED FINED NEEDLE ASPIRATION ([id number]; 03/22/17): The cytologic preparations were not reviewed [...] Second opinion with Dr. Roddy Vega in [place]. They reviewed the pathology and concurred they [...] therapy with pembrolizumab L. CT c/a/p 11/06/19 ([facility] second read) - IMPRESSION 1. Worsening left-sided [...] she is by herself in clinic. She is receiving therapy with pembrolizumab. She is tolerating this well and continues to feel very well. She is eating well and her weight is stable. She has occasional loose stools for which she uses immodium and itclears up. Her energy level is good and she feels strong. She was out riding a side by side with her daughter this past weekend and enjoyed that. No chest pain, no SOB. Soc Hx: , lives in [place], [place] Tob - Never Etoh - rare [...] is normal. Vitals reviewed. Labs: WBC/ANC - 5.587/3910, Hgb/Hct - 10.3/33.2, Plts [...] mg/day, 2 weeks followed by one w beaver off, with cycles repeated every three weeks. [...] done on 11/06/19. The anterior mediastinal mass but there is worsening of nodularity along the anterior and left side of the pericardium, an increased right upper paratracheal LN vs mass and increased left sided pleural and fissural nodularity. The LLL nodules seen on the last scan have resolved. We talked about the scan result and options, essentially continuing the pembrolizumab for a longer duration vs changing therapy. She is aware that scans can sometimes look worse before improving and our plan is to continue the pembrolizumab for now. We will go ahead today and see her in three weeks. We will plan to repeat the CT in 9 weeks, ie after three more treatments. documented in this encounter Plan of Treatment Upcoming Encounters Date Type Department Care Team (Late st Contact Info) Description 02/24/2024 9:00 AM EDT Office Visit Hematology/Oncology at [address] [phone] Shon Schneider MD [facility] [place] [address] Ciara Pitts [address] [place] [address] 02/24/2024 9:30 AM EDT Infusion Hematology Oncology at [address] [phone] 03/02/2024 11:00 AM EDT Office Visit Hematology/Oncology at [address] [phone] Shon Schneider MD [facility] [place] [address] HEMATOLOGY AND ONCOLOGY [place], [place] [id number] 03/02/2024 12:30 PM EDT Infusion Hematology Oncology at [address] [phone] 03/09/2024 10:00 AM EDT Office Visit Hematology/Oncology at [address] [phone] Shon Schneider MD [facility] [place] [place] [address] Ciara Pitts APRN [address] [place] [address] DR [place] [address] 03/09/2024 10:30 AM EDT Infusion Hematology Oncology at [address] [phone] documented as of this encounter Goals Goal Patient Goal Type Associated Problems Recent Progress Patient-Stated? Author DH Home Medication Compliance and Understanding Patient Facing Action Plan On track( 019 3:22 PM EST) No Ivana Vanegas, [facility] Note: Remain 95% or better adherent to chemotherapy without severe side effects as assessed by days supply and patient reported adverse events at each refill documented as of this encounter Results * Request For 2nd [...] as necessary): chest, abd, pelvis; Sending Institution [facility]; Date of exam [id number]; I believe a [...] progression. Lucent lesions within the L2 and [id number] bodies are stable since 2017 and most [...] number below. 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
--- OUTSIDE RECORDS SUMMARY | 2024-02-24 01:22 | XMS_ITS | Encounter Summary ---
Author Organization [facility] Address 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 - KEYTRUDA / PEMBROLIZUMAB Shon Schneider MD [facility] [place] [address] Stj Hem Onc Infusion [address] [place] [phone] Referral ID Status Reason Start Date Expiration Date Visits Re quested Visits Authorized [id number] Closed 09/25/2019 01/17/2021 10 10 Encounter Details Date Type Department Care Team (Late st Contact Info) Description 09/28/2019 11:30 AM EDT Infusion Hematology Oncology at [address] [phone] Thymic carcinoma Social History Tobacco Use Types Packs/Day Years Used Date Smoking Tobacco: Never Smokeless Tobacco: Never Sex and Gender Information Value Date Recorded Sex Assigned at Not on file Gender Identity Not on file Sexual Orientation Not on file documented as of this encounter Progress Notes * Boaz Amos RN - 09/28/2019 11:30 AM EDT INFUSION THERAPY ADMINISTRATION NOTES DIAGNOSIS: Thymic Cancer CYCLE #: 3 REASON FOR VISIT: Pembrolizumab SUBJECTIVE Monica Jaramillo offers no complaints. OBJECTIVE LAB DATA: Labs done at [facility] 09/27/19- reviewed by Dr Schneider in clinic and found adequate for treatment. Magnesium was 1.7 today. IV ACCESS: Mediport Pre administration: Chemotherapy orders independently verified for drug name, route, and dosage per patient's height, weight and BSA by Boaz Amos, SEBASTIAN and on-site pharmacist. REACTIONS (DESCRIPTION, TIME, INTERVENTION AND EFFECTIVENESS) none ASSESSMENT Monica Jaramillo was awake, alert and he tolerated treatment well. PLAN Return to clinic in 3 weeks. documented in this encounter Plan of Treatment Upcoming Encounters Date Type Department Care Team (Late st Contact Info) Description 02/24/2024 9:00 AM EDT Office Visit Hematology/Oncology at [address] [phone] Shon Schneider MD [facility] [place] [address] Ciara Pitts [address] [place] [address] 02/24/2024 9:30 AM EDT Infusion Hematology Oncology at [address] [phone] 03/02/2024 11:00 AM EDT Office Visit Hematology/Oncology at [address] [phone] Shon Schneider MD [facility] [place] [address] Ciara Pitts [address] HEMATOLOGY AND ONCOLOGY [place], [place] [address] 03/02/2024 12:30 PM EDT Infusion Hematology Oncology at [address] [phone] 03/09/2024 10:00 AM EDT Office Visit Hematology/Oncology at [address] [phone] Shon Schneider MD [facility] [place] [address] Ciara Pitts APRN [address] [place] [address] DR [place] [address] 03/09/2024 10:30 AM EDT Infusion Hematology Oncology at [address] [phone] documented as of this encounter Goals Goal Patient Goal Type Associated Problems Recent Progress Patient-Stated? Author DH Home Medication Compliance and Understanding Patient Facing Action Plan On track( 019 3:22 PM EST) No Ivana Vanegas, [facility] Note: [...] 500 Units, Intravenous, ONCE PRN, Starting on Tue09/28/19 at 1136, Until Tue09/28/19 at 1454, Line Care, Refer to Intravenous (IV) Procedure: Accessing Implanted Vascular Access Devices (4) procedure and/or Intravenous (IV) Job Aid: Adult Flushing & Catheter Care (7626) job aid for additional information regarding guidelines and administration., Routine Given 09/28/2019 12:45 PM EDT 500 Units pembrolizumab (KEYTRUDA) 200 mg in sodium chloride 0.9% 108 mL infusion 200 mg, Intravenous, ONCE, 1 dose, On Tue09/28/19 at 1300, Administer over 30 Minutes, Flush line with NS after each dose., This agent is restricted to outpatient use. Is this drug being given as an outpatient? Yes New Bag 09/28/2019 12:10 PM EDT 200 mg 216 mL/hr sodium chloride 0.9 % (flush) flush 5-20 mL 5-20 mL, Intravenous, EVERY 1 MIN PRN, Starting on Tue09/28/19 at 1136, Until Tue09/28/19 at 1454, Line Care, Flush pertains to all indwelling lines. Flush per protocol found in the job aid using the link provided on this medication record. Refer to Intravenous (IV) Job Aid: Adult Flushing & Catheter Care (1160) job aid for additional information regarding guidelines and administration., Routine Given 09/28/2019 12:45 PM EDT 20 mLs documented in this encounter Care Teams Proof Machine Operator Relationship Specialty Start Date End Date Jerzy Vidal MD [address] [place] [address] [place] [address] PCP - [facility] Medicine 12/04/18 documented as of this encounter
--- OUTSIDE RECORDS SUMMARY | 2024-02-24 01:22 | XMS_ITS | Encounter Summary ---
Author Organization [facility] Address [facility] [place] [address] Care Team Providers Care Board Liner Operator Name Role Phone Jerzy Vidal MD Primary Care Provider [phone] Encounter Details Date Type Department Care Team (Late st Contact Info) Description 10/18/2019 Telephone Hematology/Oncology at [address] [phone] Dorian Esparza Social History Tobacco Use Types [...] AM EDT Office Visit Hematology/Oncology at [address] [phone] Shon Schneider MD [facility] ONCOLOGY [place] [address] Ciara Pitts APRN [address] [place] [address] DR HEMATOLOGY AND ONCOLOGY [place], [place] [id number] 02/24/2024 9:30 AM EDT Infusion Hematology Oncology at [address] [phone] 03/02/2024 11:00 AM EDT Office Visit Hematology/Oncology at [address] [phone] Shon Schneider MD [facility] [place] [address] HEMATOLOGY AND ONCOLOGY [place], [place] [id number] 03/02/2024 12:30 PM EDT Infusion Hematology Oncology at [address] [phone] 03/09/2024 10:00 AM EDT Office Visit Hematology/Oncology at [address] [phone] Shon Schneider MD [facility] [place] [address] HEMATOLOGY AND ONCOLOGY [place], [place] [id number] 03/09/2024 10:30 AM EDT Infusion Hematology Oncology at [address] [phone] documented as of this encounter Goals Goal Patient Goal Type Associated Problems Recent Progress Patient-Stated? Author DH Home Medication Compliance and Understanding Patient Facing Action Plan On track( 019 3:22 PM EST) Ivana Ashraf, [facility] Note: Remain 95% or better adherent to chemotherapy without severe side effects as assessed by days supply and patient reported adverse events at each refill documented as of this encounter Visit Diagnoses Not on filedocumented in this encounter Care Teams Board Liner Operator Relationship Specialty Start Date End Date Jerzy Vidal MD [address] [place] [address] [place] [address] PCP - [facility] Medicine 12/04/18 documented as of this encounter
--- OUTSIDE RECORDS SUMMARY | 2024-02-24 01:22 | XMS_ITS | Encounter Summary ---
Author Organization [facility] [place] [address] Care Team Providers Care Glazier Stained Glass Name Role Phone Jerzy Vidal MD Primary Care Provider [phone] Reason for Visit * Reason Comments Medication Refill Encounter Details Date Type Department Care Team (Late Contact Info) Description 09/21/2019 Refill Hematology/Oncology at [address] [phone] Shon Schneider MD [facility] [place] [address] Hypomagnesemia Social History Tobacco Use Types Packs/Day [...] AM EDT Office Visit Hematology/Oncology at [address] [phone] Shon Schneider MD [facility] [place] [address] Ciara Pitts APRN [address] [place] [address] DR HEMATOLOGY AND ONCOLOGY [place], [place] [id number] 02/24/2024 9:30 AM EDT Infusion Hematology Oncology at [address] [phone] 03/02/2024 11:00 AM EDT Office Visit Hematology/Oncology at [address] [phone] Shon Schneider MD [facility] [place] [address] HEMATOLOGY AND ONCOLOGY [place], [place] [id number] 03/02/2024 12:30 PM EDT Infusion Hematology Oncology at [address] [phone] 03/09/2024 10:00 AM EDT Office Visit Hematology/Oncology at [address] [phone] Shon Schneider MD [facility] [place] [place] [address] HEMATOLOGY [place] [address] 03/09/2024 10:30 AM EDT Infusion Hematology Oncology at [address] [phone] documented as of this encounter Goals Goal [...] thymus documented in this encounter Care Teams Glazier Stained Glass Relationship Specialty Start Date End Date Jerzy Vidal MD [address] [place] [address] [place] [address] PCP - [facility] Medicine 12/04/18 documented as of this encounter
--- OUTSIDE RECORDS SUMMARY | 2024-02-24 01:22 | XMS_ITS | Encounter Summary ---
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 - KEYTRUDA / PEMBROLIZUMAB Shon Schneider MD [facility] [place] [address] Stj Hem Onc Infusion [address] [place] [phone] Referral ID Status Reason Start Date Expiration Date Visits Re quested Visits Authorized [id number] Closed 09/25/2019 01/17/2021 10 10 Encounter Details Date Type Department Care Team (Late st Contact Info) Description 10/19/2019 10:30 AM EDT Infusion Hematology Oncology at [address] [phone] Thymic carcinoma Social History Tobacco Use Types Packs/Day Years Used Date Smoking Tobacco: Never Smokeless Tobacco: Never Sex and Gender Information Value Date Recorded Sex Assigned at Not on file Gender Identity Not on file Sexual Orientation Not on file documented as of this encounter Progress Notes * Brionna Andrade RN - 10/19/2019 10:30 AM EDT INFUSION THERAPY ADMINISTRATION NOTES TIME TREATMENT STARTED: 1045 TIME TREATMENT ENDED: 1150 DIAGNOSIS: thymic cancer PROTOCOL: na CYCLE #: 4 REASON FOR VISIT: pembrolizumab SUBJECTIVE Monica Jaramillo offers no complaints. OBJECTIVE LAB DATA: Labs reviewed and found adequate for treatment. No skin rash, no breathing issues, no issues with bowels Pre administration: Chemotherapy orders independently verified for drug name, route, and dosage per patient's height, weight and BSA by Bryce Andrade RN and Bryce Hawley pharmacist REACTIONS (DESCRIPTION, TIME, INTERVENTION AND EFFECTIVENESS) none ASSESSMENT Monica Jaramillo was awake, alert and he tolerated treatment well. PLAN Return to clinic in 3 weeks. documented in this encounter Plan of Treatment Upcoming Encounters Date Type Department Care Team (Late st Contact Info) Description 02/24/2024 9:00 AM EDT Office Visit Hematology/Oncology at [address] [phone] Shon Schneider MD [facility] [address] HEMATOLOGY [place] [address] 02/24/2024 9:30 AM EDT Infusion Hematology Oncology at [address] [phone] 03/02/2024 11:00 AM EDT Office Visit Hematology/Oncology at [address] [phone] Shon Schneider MD [facility] [place] [address] HEMATOLOGY [place] [address] 03/02/2024 12:30 PM EDT Infusion Hematology Oncology at [address] [phone] 03/09/2024 10:00 AM EDT Office Visit Hematology/Oncology at [address] [phone] Shon Schneider MD [facility] [place] [address] Ciara Pitst APRN [address] [place] [address] DR HEMATOLOGY AND ONCOLOGY [place] [address] 03/09/2024 10:30 AM EDT Infusion Hematology Oncology at [address] [phone] documented as of this encounter Goals Goal [...] 500 Units, Intravenous, ONCE PRN, Starting on Tue10/19/19 at 1035, Until Tue10/19/19 at 1357, Line Care, Refer to Intravenous (IV) Procedure: Accessing Implanted Vascular Access Devices (734) procedure and/or Intravenous (IV) Job Aid: Adult Flushing & Catheter Care (8655) job aid for additional information regarding guidelines and administration., Routine Given 10/19/2019 11:41 AM EDT 500 Units pembrolizumab (KEYTRUDA) 200 mg in sodium chloride 0.9% 108 mL infusion 200 mg, Intravenous, ONCE, 1 dose, On 5/8/20 at 1200, Administer over 30 Minutes, Flush line with NS after each dose., This agent is restricted to outpatient use. Is this drug being given as an outpatient? Yes New Bag 10/19/2019 11:09 AM EDT 200 mg 216 mL/hr sodium chloride 0.9 % (flush) flush 5-20 mL 5-20 mL, Intravenous, EVERY 1 MIN PRN, Starting on Tue10/19/19 at 1035, Until Tue10/19/19 at 1357, Line Care, Flush pertains to all indwelling lines. Flush per protocol found in the job aid using the link provided on this medication record. Refer to Intravenous (IV) Job Aid: Adult Flushing & Catheter Care (9519) job aid for additional information regarding guidelines and administration., Routine Given 10/19/2019 11:41 AM EDT 20 mLs documented in this encounter Care Teams Clinical Mental Health Counselor Relationship Specialty Start Date End Date Jerzy Vidal MD [address] [place] [address] [place] [address] PCP - [facility] Medicine 12/04/18 documented as of this encounter
--- OUTSIDE RECORDS SUMMARY | 2024-02-24 01:22 | XMS_ITS | Encounter Summary ---
Author Organization [facility] [place] [address] Care Team Providers Care Coater Helper Name Role Phone Jerzy Vidal MD Primary Care Provider [phone] Encounter Details Date Type Department Care Team (Late Contact Info) Description 02/06/2020 Ancillary Procedure [place] [address] Shon Schneider MD [facility] [place] [address] Social History Tobacco Use Types Packs/Day Years [...] AM EDT Office Visit Hematology/Oncology at [address] [phone] Shon Schneider MD [facility] [place] [address] Ciara Pitts APRN [address] [place] [address] DR HEMATOLOGY [place] [address] 02/24/2024 9:30 AM EDT Infusion Hematology Oncology at [address] [phone] 03/02/2024 11:00 AM EDT Office Visit Hematology/Oncology at [address] [phone] Shon Schneider MD [facility] [place] [address] HEMATOLOGY AND ONCOLOGY [place], [place] [address] 03/02/2024 12:30 PM EDT Infusion Hematology Oncology at [address] [phone] 03/09/2024 10:00 AM EDT Office Visit Hematology/Oncology at [address] [phone] Shon Schneider MD [facility] [place] [address] HEMATOLOGY AND ONCOLOGY [place], [place] [address] 03/09/2024 10:30 AM EDT Infusion Hematology Oncology at [address] [phone] documented as of this encounter Goals Goal Patient Goal Type Associated Problems Recent Progress Patient-Stated? Author DH Home Medication Compliance and Understanding Patient Facing Action Plan On track( 019 3:22 PM EST) Ivana Ashraf, [facility] Note: Remain 95% or better adherent to chemotherapy without severe side effects as assessed by days supply and patient reported adverse events at each refill documented as of this encounter Procedures Procedure Name Priority Date/Time Associated Diagnosis Comments FILM LIBRARY STORAGE ONLY CT CHEST ABDOMEN PELVIS Routine 02/06/2020 12:00 AM EDT documented in this encounter Results * Film Library- Storage Only CT Chest Abdomen Pelvis (02/06/2020 12:00 AM EDT) Narrative HELDER - 02/08/2020 1:09 PM EDT This exam is auto-finalizing. It's purpose is for storage only. Shon Schneider MD IMG FILM LIBRARY ORD ERABLES Performing Organization Address City/State/[facility] Co de Phone Number [place], [place] documented in this encounter Visit Diagnoses Not on filedocumented in this encounter Care Teams Coater Helper Relationship Specialty Start Date End Date Jerzy Vidal MD [address] [place] [address] [place] [address] PCP - [facility] Medicine 12/04/18 documented as of this encounter
--- OUTSIDE RECORDS SUMMARY | 2024-02-24 01:22 | XMS_ITS | Encounter Summary ---
Author Organization [facility] Address [facility] [place] [address] Care Team Providers Care Materials Handler Name Role Phone Jerzy Vidal MD Primary Care Provider [phone] Encounter Details Date Type Department Care Team (Late st Contact Info) Description 09/07/2019 Telephone Hematology/Oncology at [address] [phone] Dorian Esparza Social History Tobacco Use Types [...] AM EDT Office Visit Hematology/Oncology at [address] [phone] Shon Schneider MD [facility] [place]COLOG[place] [address] Ciara Pitts APRN [address] [place] [address] DR HEMATOLOGY AND [place]OGY [place] [id number] 02/24/2024 9:30 AM EDT Infusion Hematology Oncology at [address] [phone] 03/02/2024 11:00 AM EDT Office Visit Hematology/Oncology at [address] [phone] Shon Schneider MD [facility] [place] [address] HEMATOLOGY AND [place]COLOGY [place], [place] [id number] 03/02/2024 12:30 PM EDT Infusion Hematology Oncology at [address] [phone] 03/09/2024 10:00 AM EDT Office Visit Hematology/Oncology at [address] [phone] Shon Schneider MD [facility] [place] [place] [address] [address] HEMATOLOGY AND [place]COLOGY [place] [id number] 03/09/2024 10:30 AM EDT Infusion Hematology Oncology at [address] [phone] documented as of this encounter Goals Goal [...] on filedocumented in this encounter Care Teams Materials Handler Relationship Specialty Start Date End Date Jerzy Vidal MD [address] [place] [address] [place] [address] PCP - [facility] Medicine 12/04/18 documented as of this encounter
--- OUTSIDE RECORDS SUMMARY | 2024-02-24 01:22 | XMS_ITS | Encounter Summary ---
Author Organization [facility] [place] [address] Care Team Providers Care Information Security Manager Name Role Phone Jerzy Vidal MD Primary Care Provider [phone] Encounter Details Date Type Department Care Team (Late st Contact Info) Description 11/06/2019 4:35 PM EDT Ancillary Procedure [place] [address] Nadeen Srivastava, RN Social History Tobacco Use [...] AM EDT Office Visit Hematology/Oncology at [address] [phone] Shon Schneider MD [facility] [place] [address] Ciara Pitts APRN [address] [place] [address] DR HEMATOLOGY AND ONCOLOGY [place], [place] [id number] 02/24/2024 9:30 AM EDT Infusion Hematology Oncology at [address] [phone] 03/02/2024 11:00 AM EDT Office Visit Hematology/Oncology at [address] [phone] Shon Schneider MD [facility] [place] [place] [address] [place] [address] 03/02/2024 12:30 PM EDT Infusion Hematology Oncology at [address] [phone] 03/09/2024 10:00 AM EDT Office Visit Hematology/Oncology at [address] [phone] Shon Schneider MD [facility] [place] [address] [address] [place] [address] 03/09/2024 10:30 AM EDT Infusion Hematology Oncology at [address] [phone] documented as of this encounter Goals Goal Patient Goal Type Associated Problems Recent Progress Patient-Stated? Author DH Home Medication Compliance and Understanding Patient Facing Action Plan On track( 019 3:22 PM EST) Ivana Ashraf, [facility] Note: Remain 95% or better adherent to chemotherapy without severe side effects as assessed by days supply and patient reported adverse events at each refill documented as of this encounter Procedures Procedure Name Priority Date/Time Associated Diagnosis Comments FILM LIBRARY STORAGE ONLY CT CHEST ABDOMEN PELVIS Routine 11/06/2019 4:31 PM EDT documented in this encounter Results * Film Library- Storage Only CT Chest Abdomen Pelvis (11/06/2019 4:31 PM EDT) Narrative MICHAEL RAD - 11/06/2019 4:31 PM EDT This exam is auto-finalizing. It's purpose is for storage only. Nadeen Srivastava RN IMG FILM LIBRARY ORD ERABLES [place], [place] documented in this encounter Visit Diagnoses Not on filedocumented in this encounter Care Teams Information Security Manager Relationship Specialty Start Date End Date Jerzy Vidal MD [address] [place] [address] [place] [address] PCP - [facility] Medicine 12/04/18 documented as of this encounter
--- OUTSIDE RECORDS SUMMARY | 2024-02-24 01:22 | XMS_ITS | Encounter Summary ---
Author Organization [facility] [place] [address] Care Team Providers Care Wind Development Director Name Role Phone Jerzy Vidal MD Primary Care Provider [phone] Encounter Details Date Type Department Care Team (Late st Contact Info) Description 09/06/2019 Telephone Hematology/Oncology at [address] [phone] Social History Tobacco Use Types Packs/Day Years Used Date Smoking Tobacco: Never Smokeless Tobacco: Never Sex and Gender Information Value Date Recorded Sex Assigned at Not on file Gender Identity Not on file Sexual Orientation Not on file documented as of this encounter Miscellaneous Notes * Telephone Encounter - Laura Lane - 09/06/2019 1:34 PM EDT I Called to Monica inform her of the following: As a new precaution with COVID-19 we are calling all patients before they come in for their appointment to screen for any potential symptoms. 1. EXPOSURE: ???Have you been in contact with anyone suspected or confirmed to have COVID-19 in thepast 14 days??? No 2. Do you have a fever, cough, or shortness of breath? No [if they say yes to symptoms but [...] AM EDT Office Visit Hematology/Oncology at [address] [phone] Shon Schneider MD [facility] [place] [address] HEMATOLOGY AND ONCOLOGY [place], [place] [address] 02/24/2024 9:30 AM EDT Infusion Hematology Oncology at [address] [phone] 03/02/2024 11:00 AM EDT Office Visit Hematology/Oncology at [address] [phone] Shon Schneider MD [facility] [place] [address] HEMATOLOGY [place] [address] 03/02/2024 12:30 PM EDT Infusion Hematology Oncology at [address] [phone] 03/09/2024 10:00 AM EDT Office Visit Hematology/Oncology at [address] [phone] Shon Schneider MD [facility] [place] [address] Ciara Pitts APRN [address] [place] [address] DR HEMATOLOGY AND ONCOLOGY [place], [place] [id number] 03/09/2024 10:30 AM EDT Infusion Hematology Oncology at [address] [phone] documented as of this encounter Goals Goal [...] on filedocumented in this encounter Care Teams Wind Development Director Relationship Specialty Start Date End Date Jerzy Vidal MD [address] [place] [address] [place] [address] PCP - [facility] Medicine 12/04/18 documented as of this encounter
--- OUTSIDE RECORDS SUMMARY | 2024-02-24 01:22 | XMS_ITS | Encounter Summary ---
Author Organization [facility] [place] [address] Care Team Providers Care Garment Parts Cutter Machine Name Role Phone Jerzy Vidal MD Primary Care Provider [phone] Reason for Visit * Reason Onset Date Comments Follow-up 08/27/2019 Encounter Details Date Type Department Care Team (Late Contact Info) Description 08/27/2019 Telephone Hematology/Oncology at [address] [phone] Brionna Andrade RN Follow-up Social History Tobacco Use Types Packs/Day Years Used Date Smoking Tobacco: Never Smokeless Tobacco: Never Sex and Gender Information Value Date Recorded Sex Assigned at Not on file Gender Identity Not on file Sexual Orientation Not on file documented as of this encounter Miscellaneous Notes * Telephone Encounter - Brionna Andrade RN - 08/27/2019 1:53 PM EDT Monica called and stated she is unable to et labs drawn through her port on 08/29/19. She would like to go august 29. Reviewed with odalis Srivastava NP, she said that was fine and she can review them to make sure her HBG is not dropping. Monica agrees with plan. documented in this encounter Plan of Treatment Upcoming Encounters Date Type Department Care Team (Late Contact Info) Description 02/24/2024 9:00 AM EDT Office Visit Hematology/Oncology at [address] [phone] Shon Schneider MD [facility] [place] [address] HEMATOLOGY AND ONCOLOGY [place], [place] [address] [phone] 02/24/2024 9:30 AM EDT Infusion Hematology Oncology at [address] [phone] 03/02/2024 11:00 AM EDT Office Visit Hematology/Oncology at [address] [phone] Shon Schneider MD [facility] [place] [address] Ciara Pitts [address] HEMATOLOGY AND ONCOLOGY [place], [place] [address] 03/02/2024 12:30 PM EDT Infusion Hematology Oncology at [address] [phone] 03/09/2024 10:00 AM EDT Office Visit Hematology/Oncology at [address] [phone] Shon Schneider MD [facility] [place] [address] Ciara Pitts [address] HEMATOLOGY AND ONCOLOGY [place], [place] [id number] 03/09/2024 10:30 AM EDT Infusion Hematology Oncology at [address] [phone] documented as of this encounter Goals Goal [...] on filedocumented in this encounter Care Teams Garment Parts Cutter Machine Relationship Specialty Start Date End Date Jerzy Vidal MD [address] [place] [address] [place] [address] PCP - [facility] Medicine 12/04/18 documented as of this encounter
--- OUTSIDE RECORDS SUMMARY | 2024-02-24 01:22 | XMS_ITS | Encounter Summary ---
Author Organization [facility] Address [facility] [place] [address] Care Team Providers Care Dinkey Engine Operator Name Role Phone Jerzy Vidal MD Primary Care Provider [phone] Encounter Details Date Type Department Care Team (Late st Contact Info) Description 01/17/2020 Orders Only Hematology/Oncology at [address] [phone] Nadeen Srivastava, RN Social History Tobacco Use [...] AM EDT Office Visit Hematology/Oncology at [address] [phone] Shon Schneider MD [facility] [place] [address] Ciara Pitts APRN [address] [place] [address] DR HEMATOLOGY AND ONCOLOGY [place], [place] [address] 02/24/2024 9:30 AM EDT Infusion Hematology Oncology at [address] [phone] 03/02/2024 11:00 AM EDT Office Visit Hematology/Oncology at [address] [phone] Shon Schneider MD [facility] [place] [address] HEMATOLOGY AND ONCOLOGY [place], [place] [id number] 03/02/2024 12:30 PM EDT Infusion Hematology Oncology at [address] [phone] 03/09/2024 10:00 AM EDT Office Visit Hematology/Oncology at [address] [phone] Shon Schneider MD [facility] [place] [address] HEMATOLOGY AND ONCOLOGY [place], [place] [id number] 03/09/2024 10:30 AM EDT Infusion Hematology Oncology at [address] [phone] documented as of this encounter Goals Goal [...] on filedocumented in this encounter Care Teams Dinkey Engine Operator Relationship Specialty Start Date End Date Jerzy Vidal MD [address] [place] [address] [place] [address] PCP - [facility] Medicine 12/04/18 documented as of this encounter
--- OUTSIDE RECORDS SUMMARY | 2024-02-24 01:22 | XMS_ITS | Encounter Summary ---
Author Organization [facility] Address [facility] [place] [address] Care Team Providers Care Revenue Cycle Consultant Name Role Phone Jerzy Vidal MD Primary Care Provider [phone] Encounter Details Date Type Department Care Team (Late Contact Info) Description 02/15/2020 Orders Only Hematology [place] [phone] Shon Schneider MD [facility] [place] [address] Social History Tobacco Use Types Packs/Day Years Used Date Smoking Tobacco: Never Smokeless Tobacco: Never Sex and Gender Information Value Date Recorded Sex Assigned at Not on file Gender Identity Not on file Sexual Orientation Not on file documented as of this encounter Miscellaneous Notes * Addendum Note - Fransisco Whitman RPH - 02/15/2020 4:34 PM EDTAddended by: FRANSISCO WHITMAN on: 02/25/2020 08:11 AM Modules accepted: Orders documented in this encounter Plan of Treatment Upcoming Encounters Date Type Department Care Team (Late st Contact Info) Description 02/24/2024 9:00 AM EDT Office Visit Hematology/Oncology at [address] [phone] Shon Schneider MD [facility] [place] [address] [address] HEMATOLOGY AND ONCOLOGY [place], [place] [address] 02/24/2024 9:30 AM EDT Infusion Hematology Oncology at [address] [phone] 03/02/2024 11:00 AM EDT Office Visit Hematology/Oncology at [address] [phone] Shon Schneider MD [facility] [place] [address] [address] HEMATOLOGY AND ONCOLOGY [place], [place] [address] 03/02/2024 12:30 PM EDT Infusion Hematology Oncology at [address] [phone] 03/09/2024 10:00 AM EDT Office Visit Hematology/Oncology at [address] [phone] Shon Schneider MD [facility] [place] [address] [address] HEMATOLOGY AND ONCOLOGY [place], [place] [address] 03/09/2024 10:30 AM EDT Infusion Hematology Oncology at [address] [phone] documented as of this encounter Goals Goal [...] on filedocumented in this encounter Care Teams Revenue Cycle Consultant Relationship Specialty Start Date End Date Jerzy Vidal MD [address] [place] [address] [place] [address] PCP - [facility] Medicine 12/04/18 documented as of this encounter
--- OUTSIDE RECORDS SUMMARY | 2024-02-24 01:22 | XMS_ITS | Encounter Summary ---
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 - KEYTRUDA / PEMBROLIZUMAB Shon Schneider MD [facility] [place] [address] Stj Hem Onc Infusion [address] [place] [phone] Referral ID Status Reason Start Date Expiration Date Visits Re quested Visits Authorized [id number] Closed 09/25/2019 01/17/2021 10 10 Encounter Details Date Type Department Care Team (Late st Contact Info) Description 09/07/2019 10:30 AM EDT Infusion Hematology Oncology at [address] [phone] Thymic carcinoma Social History Tobacco Use Types Packs/Day Years Used Date Smoking Tobacco: Never Smokeless Tobacco: Never Sex and Gender Information Value Date Recorded Sex Assigned at Not on file Gender Identity Not on file Sexual Orientation Not on file documented as of this encounter Progress Notes * Boaz Amos RN - 09/07/2019 10:30 AM EDT INFUSION THERAPY ADMINISTRATION NOTES DIAGNOSIS: thymic cancer CYCLE #: 2 REASON FOR VISIT: pembrolizumab SUBJECTIVE Monica Jaramillo offers no complaints. OBJECTIVE LAB DATA: Labs done at [facility] 09/06/19- reviewed with Nadeen Srivastava APRN in clinic and found adequate for treatment. IV ACCESS: Mediport Pre administration: Chemotherapy orders independently verified for drug name, route, and dosage per patient's height, weight and BSA by Boaz Amos RN and on-site pharmacist. REACTIONS (DESCRIPTION, TIME, INTERVENTION AND EFFECTIVENESS) none ASSESSMENT Monica Jaramillo was awake, alert and he tolerated treatment well. PLAN Return to clinic in 3 weeks. documented in this encounter Plan of Treatment Upcoming Encounters Date Type Department Care Team (Late st Contact Info) Description 02/24/2024 9:00 AM EDT Office Visit Hematology/Oncology at [address] [phone] Shon Schneider MD [facility] [place] [address] Ci[address] iPtts [address] [place] [address] 02/24/2024 9:30 AM EDT Infusion Hematology Oncology at [address] [phone] 03/02/2024 11:00 AM EDT Office Visit Hematology/Oncology at [address] [phone] Shon Schneider MD [facility] [place] [address] [address] Ptits [address] [place] [address] 03/02/2024 12:30 PM EDT Infusion Hematology Oncology at [address] [phone] 03/09/2024 10:00 AM EDT Office Visit Hematology/Oncology at [address] [phone] Shon Schneider MD [facility] [place] [address] Ciara Pitts APRN [address] [place] [address] DR [place] [address] 03/09/2024 10:30 AM EDT Infusion Hematology Oncology at [address] [phone] documented as of this encounter [...] 500 Units, Intravenous, ONCE PRN, Starting on Tue09/07/19 at 1124, Until Tue09/07/19 at 1526, Line Care, Refer to Intravenous (IV) Procedure: Accessing Implanted Vascular Access Devices (854) procedure and/or Intravenous (IV) Job Aid: Adult Flushing & Catheter Care (1614) job aid for additional information regarding guidelines and administration., Routine Given 09/07/2019 1:04 PM EDT 500 Units pembrolizumab (KEYTRUDA) 200 mg in sodium chloride 0.9% 108 mL infusion 200 mg, Intravenous, ONCE, 1 dose, On Tue09/07/19 at 1245, Administer over 30 Minutes, Flush line with NS after each dose., This agent is restricted to outpatient use. Is this drug being given as an outpatient? Yes New Bag 09/07/2019 12:32 PM EDT 200 mg 216 mL/hr sodium chloride 0.9 % (flush) flush 5-20 mL 5-20 mL, Intravenous, EVERY 1 MIN PRN, Starting on Tue09/07/19 at 1124, Until Tue09/07/19 at 1526, Line Care, Flush pertains to all indwelling lines. Flush per protocol found in the job aid using the link provided on this medication record. Refer to Intravenous (IV) Job Aid: Adult Flushing & Catheter Care (2423) job aid for additional information regarding guidelines and administration., Routine Given 09/07/2019 1:04 PM EDT 20 mLs documented in this encounter Care Teams Women'S Apparel Salesperson Relationship Specialty Start Date End Date Jerzy Vidal MD [address] [place] [address] [place] [address] PCP - [facility] Medicine 12/04/18 documented as of this encounter
--- OUTSIDE RECORDS SUMMARY | 2024-02-24 01:22 | XMS_ITS | Encounter Summary ---
Author Organization [facility] [place] [address] Care Team Providers Care Shrimp Boat Captain Name Role Phone Jerzy Vidal MD Primary Care Provider [phone] Encounter Details Date Type Department Care Team (Late Contact Info) Description 09/26/2019 Orders Only Hematology/Oncology at [address] [phone] Shon Schneider MD [facility] [place] [address] Thymic carcinoma Social History Tobacco Use Types [...] AM EDT Office Visit Hematology/Oncology at [address] [phone] Shon Schneider MD [facility] [place] [address] Ciara Pitts APRN [address] [place] [address] DR HEMATOLOGY AND ONCOLOGY [place], [place] [address] 02/24/2024 9:30 AM EDT Infusion Hematology Oncology at [address] [phone] 03/02/2024 11:00 AM EDT Office Visit Hematology/Oncology at [address] [phone] Shon Schneider MD [facility] [place] [address] HEMATOLOGY AND ONCOLOGY [place], [place] [address] [phone] 03/02/2024 12:30 PM EDT Infusion Hematology Oncology at [address] [phone] 03/09/2024 10:00 AM EDT Office Visit Hematology/Oncology at [address] [phone] Shon Schneider MD [facility] [place] [address] [address] [place] [address] 03/09/2024 10:30 AM EDT Infusion Hematology Oncology at [address] [phone] documented as of this encounter Goals Goal [...] thymus documented in this encounter Care Teams Shrimp Boat Captain Relationship Specialty Start Date End Date Jerzy Vidal MD [address] [place] [address] [place] [address] PCP - [facility] Medicine 12/04/18 documented as of this encounter
--- OUTSIDE RECORDS SUMMARY | 2024-02-24 01:23 | XMS_ITS | Encounter Summary ---
Author Organization [facility] [place] [address] Care Team Providers Care Potline Monitor Name Role Phone Jerzy Vidal MD Primary Care Provider [phone] Reason for Visit * Reason Onset Date Comments Labs Only 03/23/2019 Lab tracking Encounter Details Date Type Department Care Team (Late st Contact Info) Description 03/23/2019 Telephone Hematology Oncology at [address] [phone] Eden Vieira, RN Labs Only (Lab tracking) Social History Tobacco Use Types Packs/Day Years Used Date Smoking Tobacco: Never Smokeless Tobacco: Never Sex and Gender Information Value Date Recorded Sex Assigned at Not on file Gender Identity Not on file Sexual Orientation Not on file documented as of this encounter Miscellaneous Notes * Telephone Encounter - Eden Vieira, RN - 03/23/2019 9:30 AM EDT LAB TRACKING Brayan Pierre [phone] DIAGNOSIS: thymic cancer LABS ORDERED: cbc diff, cmp, mag MEDICATIONS: Sutent Standing transfusion orders from PCP at [facility] Assessment/Plan: Pt has 2 days left of sutent for this cycle and then has 7 off. She will have labsagain next week on . Brayan is feeling well. Results for BRAYAN PIERRE ( ) as of 03/23/2019 09:34 Ref. Range 03/01/2019 00:00 03/08/2019 00:00 03/16/2019 00:00 03/22/2019 00:00 WBC Unknown 4 4.3 2.6 3.4 Hemoglobin Unknown 11.4 10.7 10.6 10.7 Hematocrit Unknown 32.9 31.0 30.9 30.5 Platelets Unknown 95 95 88 90 Neutr Abs (ANC) Unknown 2.28 2.40 1.53 1.98 Sodium Unknown 137 138 Potassium Unknown 3.9 3.8 4.0 BUN Unknown 14 13 11 Creatinine Unknown 0.60 0.60 0.60 Calcium Unknown 9.5 9.8 9.7 Magnesium Latest Units: mg/dL 1.3 1.2 1.2 1.4 Total Bilirubin Unknown 0.7 0.7 Alk Phos Unknown 62 55 58 AST Unknown 37 30 31 38 ALT Unknown 19 20 28 T4, total Unknown 7.8 TSH Unknown 3.58 documented in this encounter Plan of Treatment Upcoming Encounters Date Type Department Care Team (Late st Contact Info) Description 02/24/2024 9:00 AM EDT Office Visit Hematology/Oncology at [address] [phone] Shon Schneider MD [facility] [place] [address] [address] [place] [address] 02/24/2024 9:30 AM EDT Infusion Hematology Oncology at [address] [phone] 03/02/2024 11:00 AM EDT Office Visit Hematology/Oncology at [address] [phone] Shon Schneider MD [facility] [place] [address] Ciara Pitts [address] HEMATOLOGY AND ONCOLOGY [place], [place] [address] 03/02/2024 12:30 PM EDT Infusion Hematology Oncology at [address] [phone] 03/09/2024 10:00 AM EDT Office Visit Hematology/Oncology at [address] [phone] Shon Schneider MD [facility] [place] [address] Ciara Pitts [address] HEMATOLOGY AND ONCOLOGY [place], [place] [phone] 03/09/2024 10:30 AM EDT Infusion Hematology Oncology at [address] [phone] documented as of this encounter Goals Goal [...] Associated Diagnosis Comments CBC (WITH DIFF) Routine 03/22/2019 MAGNESIUM Routine 03/22/2019 COMPREHENSIVE METABOLIC PANEL Routine 03/22/2019 documented in this encounter Results * Magnesium (03/22/2019) Magnesium 1.4 mg/dL Blood specimen (specimen) 03/22/2019 Shon Schneider MD CHEMISTRY ORDERABLES * Comprehensive metabolic panel (non-fasting) (03/22/2019) Blood Urea Nitrogen 11 Creatinine 0.60 Sodium 138 Potassium 4.0 Calcium 9.7 Bilirubin, Total 0.7 Alkaline Phosphatase 58 Aspartate Aminotransferase 38 Alanine Aminotransferase 28 Blood specimen (specimen) 03/22/2019 Shon Schneider MD CHEMISTRY ORDERABLES * CBC (with Diff) (03/22/2019) White Blood Cell 3.4 Hemoglobin 10.7 Hematocrit 30.5 Platelet 90 Neutrophil Absolute (ANC) - Automated 1.98 Blood specimen (specimen) 03/22/2019 Shon Schneider MD HEMATOLOGY ORDERABLE S documented in this encounter Visit Diagnoses Not on filedocumented in this encounter Care Teams Potline Monitor Relationship Specialty Start Date End Date Jerzy Vidal MD [address] [place] [address] [place] [address] PCP - [facility] Medicine 12/04/18 documented as of this encounter
--- OUTSIDE RECORDS SUMMARY | 2024-02-24 01:23 | XMS_ITS | Encounter Summary ---
Author Organization [facility] Address [facility] [place] [address] Care Team Providers Care Group Care Worker Name Role Phone Jerzy Vidal MD Primary Care Provider [phone] Reason for Referral * Diagnostic Test (Routine) - Closed Specialty Diagnoses / Procedures Referred By Franklyn del rio Referred To Contact Radiology Diagnoses Thymic carcinoma Procedures CT Chest Abdomen Pelvis w Contrast (Generic) Shon Schneider MD [facility] [address] [facility] [place] [address] Referral ID Status Reason Start Date Expiration Date V isits Requested Visits Authorized [id number] Closed Specialty Service Requested 07/20/2019 10/18/2019 1 1 Encounter Details Date Type Department Care Team (Late st Contact Info) Description 07/13/2019 3:30 PM EST Office Visit Hematology/Oncology at [address] [phone] Shon Schneider MD [facility] [place] [address] Nadeen Srivastava, RN Thymic carcinoma; Macrocytic anemia; Hypothyroidism, acquired Social History Tobacco Use Types Packs/Day Years Used Date Smoking Tobacco: Never Smokeless Tobacco: Never Sex and Gender Information Value Date Recorded Sex Assigned at Not on file Gender Identity Not on file Sexual Orientation Not on file documented as of this encounter Last Filed Vital Signs Vital Sign Reading Time Taken Comments Blood Pressure 116/69 07/13/2019 3:39 PM EST Pulse 69 07/13/2019 3:39 PM EST Temperature 36.8 ??C (98.2 ??F) 07/13/2019 3:39 PM ES T Respiratory Rate 16 07/13/2019 3:39 PM EST Oxygen Saturation 100% 07/13/2019 3:39 PM EST Inhaled Oxygen Concentration - - Weight 125.5 kg (276 lb 9.6 oz) 07/13/2019 3:39 PM EST Height - - Body Mass Index 40.26 06/01/2019 2:24 PM EST documented in this encounter Progress Notes * Shon Schneider MD - 07/13/2019 3:30 PM EST Subjective: Patient ID: Monica [...] pleural effusion with compression atelectasis. transferred to [facility] for further evaluation and workup [...] B. Biopsy of mediastinal mass 03/29 Path ([facility] review) - Mediastinum, mass, biopsy: 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 [facility] - CONSULT SLIDES FROM [facility]; [place], [place]: A. MEDIASTINUM, MASS, BIOPSY ([id number]; 03/22/2017): ? 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 ?Immunohistochemistry performed at the outside institution and reviewed at [facility] demonstrates the following staining profile in lesional cells: ? Positive - AE1/AE3, p40, PAX8, CD117, CD5(multifocal), CK7(scattered cells), synaptophysin, chromogranin ? Negative - CK20, TTF-1, GATA3, CD34 ? The immunohistochemical profile supports the above diagnosis. ? Ki67 (MIB-1) proliferation index performed at the referring institution and reviewed at [facility] is focally up to ~30%. NOTE: While diffuse synaptophysin and chromogranin expression is unusual for conventional thymic carcinoma, the overall histomorphology and immunophenotype is most in keeping with THYMIC SQUAMOUS CARCINOMA.?The extent of PAX8 and CD117 staining would be unusual for Nut carcinoma. B. MEDIASTINUM, ANTERIOR, 4.5 CM, ULTRASOUND GUIDED FINED NEEDLE ASPIRATION ([id number]; 03/22/17): The cytologic preparations were not reviewed [...] Second opinion with Dr. Roddy Vega in [place]. They reviewed the pathology and concurred they [...] mm or less LEFT pleural-based nodules. ?? 2. H/o atrial fibrillation 3. HTN [...] = 3.1 cm 6. Clinical correlation required HPI Ms. Jaramillo is seen in f/u thymic carcinoma. The history is summarized above. On presentation today, she is accompanied by her . She is feeling very well and continues totolerate therapy well. She is due to start the next cycle of sutent on 07/15. Her appetite is good and her weight is stable. Her energy and exercise tolerance are good. No dyspnea. No chest pain. Her bowels are regular. Soc Hx: , lives in [place], [place] Tob - Never Etoh - rare [...] is normal. Vitals reviewed. Labs: WBC/ANC - 2.12/1529, Hgb/Hct - 8.3/25, Plts - 99,000. BUN/Cr - 11/0.6. Mg - 1.4. Lytes and LFTs o/w unremarkable TSH - 4.83, Free T4 - 1.07 (WNL) Assessment and Plan: Ms. Jaramillo is [...] suggested that we re-apply for the pembrolizumab. For my reference, they recommend including results of two phase II trials. There is no guarantee that this would be approved then, but it would be worth trying. I spoke with Dr. Vega at [facility]. There were no clinical trials available [...] mg/day, 2 weeks followed by one w andreafski off, with cycles repeated every three weeks. [...] sunitinib at 25 mg per day on 01/05/19 with plans to have her take this fortwo weeks on and 1 week off. She has tolerated this dose and schedule well. The restaging CT scan done 04/04/19 showed increased size of a now [address] and was otherwise stable. We reviewed the scans. The change in the node was relatively small and we decided to continue the current therapy and repeat the CT in 2-3 months. Clinically she is doing well. She willgo ahead with the next cycle of therapy and see her in three weeks at [facility] with a scan. The TSH is a little high but the T4 is WNL. Will have her continue the same dose of synthroid and recheck. 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 She had an elevated fractional excretion of magnesium and therefore in 01/2019 was started on amiloride. The magnesium is low ok and she has not required a magnesium infusion for number of weeks. She is more anemic. We will recheck the Hgb next week and transfuse if it is less than 8. Will alsocheck iron studies, retic, B12 and folate at that time. Foundation One testing. Per the report, there were 3 genomic findings but no therapies associated with potential clinical benefit. Of note, pembrolizumab is now included on the NCCN list of second line therapies with a note that, in this disease, there is a higher risk of serious immune related toxicity, including myocarditis. documented in this encounter Plan of Treatment Upcoming Encounters Date Type Department Care Team (Late st Contact Info) Description 02/24/2024 9:00 AM EDT Office Visit Hematology/Oncology at [address] [phone] Shon Schneider MD [facility] [place] [place] [address] [address] HEMATOLOGY AND ONCOLOGY [place], [place] [address] 02/24/2024 9:30 AM EDT Infusion Hematology Oncology at [address] [phone] 03/02/2024 11:00 AM EDT Office Visit Hematology/Oncology at [address] [phone] Shon Schneider MD [facility] [place] [address] [address] HEMATOLOGY AND ONCOLOGY [place], [place] [address] 03/02/2024 12:30 PM EDT Infusion Hematology Oncology at [address] [phone] 03/09/2024 10:00 AM EDT Office Visit Hematology/Oncology at [address] [phone] Shon Schneider MD [facility] [place] [address] [address] HEMATOLOGY AND ONCOLOGY [place], [place] [address] 03/09/2024 10:30 AM EDT Infusion Hematology Oncology at [address] [phone] Scheduled Orders Name Type Priority Associated Diagnoses Orde r Schedule CBC (with Diff) Lab Routine Macrocytic anemia Expected: 07/19/2019 (Approximate), Expires: 01/18/2020 Reticulocyte Count Lab Routine Macrocytic anemia Expected: 07/20/2019 (Approximate), Expires: 01/19/2020 Iron and TIBC Lab Routine Macrocytic anemia Expected: 07/20/2019 (Approximate), Expires: 01/19/2020 Ferritin Lab Routine Macrocytic anemia Expected: 07/20/2019 (Approximate), Expires: 01/19/2020 Vitamin B12 Lab Routine Macrocytic anemia Expected: 07/20/2019 (Approximate), Expires: 01/19/2020 Folate, serum Lab Routine Macrocytic anemia Expected: 07/20/2019 (Approximate), Expires: 01/19/2020 documented as of this encounter Goals Goal Patient Goal Type Associated Problems Recent Progress Patient-Stated? Author DH Home Medication Compliance and Understanding Patient Facing Action Plan On track( 019 3:22 PM EST) No Ivana Vanegas [facility] Note: Remain 95% or better adherent to chemotherapy without severe side effects as assessed by days supply and patient reported adverse events at each refill documented as of this encounter Procedures Procedure Name Priority Date/Time Associated Diagnosis Comments LAB SCAN 08/16/2019 12:00 AM EST LAB SCAN 07/19/2019 12:00 AM EST documented in this encounter Results * SCAN DOC: LAB (08/16/2019 12:00 AM EST) Narrative 08/16/2019 12:00 AM EST Ordered by an unspecified provider. Scanning Provider MEDIA MGR SCAN EXT O RDR/RSLT * (ABNORMAL) CT Chest Abdomen Pelvis w Contrast (Generic) (07/31/2019 9:49 AM EST) Anatomical Region Laterality Modality Abdomen, Pelvis Computed Tomogra phy Impressions 07/31/2019 10:55 AM EST Unexpected finding: Dual new left lower lobe pulmonary nodules measuring 7 and 11 mm. Stable mediastinal mass, stable pericardial and epicardial soft tissue nodularity, stable left breast mass, stable left pericardial lymph node. I have personally reviewed the image(s) and the resident's interpretation and agree with the findings, Esthela Woo at 07/31/2019 10:55 AM Thank you for letting us participate in the care of this patient. For questions regarding this report, please contact the number below. ? Narrative 07/31/2019 10:55 AM EST EXAMINATION: CT CHEST ABDOMEN PELVIS W CONTRAST (GENERIC) CLINICAL HISTORY: Cancer of unknown primary, assess treatment response Thymic carcinoma, unresectable, on sutent. ??Restaging TECHNIQUE: Helical CT of the chest, abdomen, and pelvis was performed following the intravenous administration of contrast. A total of 120 cc of Omnipaque 350 was administered. Oral contrast was administered. COMPARISON: CT chest abdomen and pelvis 04/04/2019; PET/CT of 04/18/2017 FINDINGS: Chest: Lungs and large airways: Airways are patent. New 11 mm pleural-based nodule in the inferior medial LEFT lower lobe (series 4, image 69) as well as a new intraparenchymal ill-defined 7 mm spiculated pulmonary nodule at the LEFT lung base (series 4, image 73). Stable small intrafissural nodules along the LEFT apical major fissure, dating back to PET/CT from 04/18/2017. Unchanged sub-5 mm peripheral pulmonary nodule within the LEFT upper lobe (series 4, image 49). Pleura: No effusion or pneumothorax. Heart/vasculature: Stable size and extent of epicardial and pericardial soft tissue nodularity. Lymph nodes: Stable LEFT pericardial lymph node. Mediastinum and william: Stable size and morphology enhancing large anterior mediastinal mass with internal calcifications which currently measures 8.7 x 3.1 cm (series 3, image 33), previously 9.0 x 2.9 cm on study 04/04/2019. Slight differences likely represent patient position and phase of respiration. Soft tissues: Stable left breast mass. Abdomen/pelvis: Liver: Normal size and attenuation without lesions. Bile ducts: Nondilated. Gallbladder: No calcified gallstones. Normal caliber wall. Pancreas: Normal attenuation without ductal dilatation. Spleen: Normal. Adrenals: Normal. Kidneys: Normal. Urinary Bladder: Normal. Vasculature: Patent hepatic and portal veins. Normal caliber abdominal aorta. Lymph Nodes: ??No enlarged lymph nodes. Bowel: Nondilated, no wall thickening. ?? Peritoneum and mesentery: No ascites, free air, or loculated fluid collection. No mesenteric inflammation. Abdominal wall: Ventral hernia as containing fat and nonthickened loops of small bowel. Reproductive organs: Calcified subserosal and pedunculated or exophytic fibroids are stable. Osseous structures: Stable mixed lytic and sclerotic mass at L2. Resulting Agency Comment Unexpected Finding Shon Schneider MD IMG CT ORDERABLES * T4, free (07/31/2019 8:00 AM EST) Free T4 1.14 0.93 - 1.70 ng/dL [facility] Blood specimen (specimen) 07/31/2019 8:00 AM EST 07/31/2019 8:01 AM EST Narrative Resulting Agency Comment Spec In Lab Shon Schneider MD CHEMISTRY ORDERABLES Performing Organization Address City/[facility]/ZIP Co de Phone Number [facility] [place] [address] * (ABNORMAL) TSH (07/31/2019 8:00 AM EST) Thyroid Stimulating Hormone 4.62(H) 0.27 - 4.20 mcIU/mL [facility] Blood specimen (specimen) 07/31/2019 8:00 AM EST 07/31/2019 8:01 AM EST Narrative Resulting Agency Comment Spec In Lab Shon Schneider MD CHEMISTRY ORDERABLES Performing Organization Address [facility]/ZIP Co de Phone Number [facility] [place] [address] * SCAN DOC: LAB (07/19/2019 12:00 AM EST) Narrative 07/19/2019 12:00 AM EST Ordered by an unspecified provider. Scanning Provider MEDIA MGR SCAN EXT O RDR/RSLT documented in this encounter Visit Diagnoses Diagnosis Thymic carcinoma Malignant neoplasm of thymus Macrocytic anemia Unspecified deficiency anemia Hypothyroidism, acquired Unspecified hypothyroidism 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 documented in this encounter Care Teams Group Care Worker Relationship Specialty Start Date End Date Jerzy Vidal MD [address] [place] [address] [place] [address] PCP - [facility] Medicine 12/04/18 documented as of this encounter
--- OUTSIDE RECORDS SUMMARY | 2024-02-24 01:23 | XMS_ITS | Encounter Summary ---
Author Organization [facility] [place] [address] Care Team Providers Care Premises Technician Name Role Phone Jerzy Vidal MD Primary Care Provider [phone] Reason for Visit * Reason Onset Date Comments Labs Only 2019 Encounter Details Date Type Department Care Team (Late Contact Info) Description 2019 Telephone Hematology Oncology at [address] [phone] Eden Vieira, RN Labs Only Social History Tobacco Use Types Packs/Day Years Used Date Smoking Tobacco: Never Smokeless Tobacco: Never Sex and Gender Information Value Date Recorded Sex Assigned at Not on file Gender Identity Not on file Sexual Orientation Not on file documented as of this encounter Miscellaneous Notes * Telephone Encounter - Eden Vieira RN - 2019 12:36 PM EST Nadeen Srivastava APRN asked me to call Monica and let her know her labs look good this week. Monica was not able to make it in to her appt today d/t bad weather. Monica was happy with the call. documented in this encounter Plan of Treatment Upcoming Encounters Date Type Department Care Team (Late Contact Info) Description 02/24/2024 9:00 AM EDT Office Visit Hematology/Oncology at [address] [phone] Shon Schneider MD [facility] [place] [address] [address] HEMATOLOGY AND ONCOLOGY [place], [place] [address] 02/24/2024 9:30 AM EDT Infusion Hematology Oncology at [address] [phone] 03/02/2024 11:00 AM EDT Office Visit Hematology/Oncology at [address] [phone] Shon Schneider MD [facility] [place] [address] [address] HEMATOLOGY AND ONCOLOGY [place], [place] [address] 03/02/2024 12:30 PM EDT Infusion Hematology Oncology at [address] [phone] 03/09/2024 10:00 AM EDT Office Visit Hematology/Oncology at [address] [phone] Shon Schneider MD [facility] [place] [address] [address] HEMATOLOGY AND ONCOLOGY [place], [place] [address] 03/09/2024 10:30 AM EDT Infusion Hematology Oncology at [address] [phone] documented as of this encounter Goals Goal Patient Goal Type Associated Problems Recent Progress Patient-Stated? Author DH Home Medication Compliance and Understanding Patient Facing Action Plan On track( 019 3:22 PM EST) No Ivana Vanegas, [facility] Note: Remain 95% or better adherent to chemotherapy without severe side effects as assessed by days supply and patient reported adverse events at each refill documented as of this encounter Visit Diagnoses Not on filedocumented in this encounter Care Teams Premises Technician Relationship Specialty Start Date End Date Jerzy Vidal MD [address] [place] [address] [place] [address] PCP - [facility] Medicine 12/04/18 documented as of this encounter
--- OUTSIDE RECORDS SUMMARY | 2024-02-24 01:23 | XMS_ITS | Encounter Summary ---
Author Organization [facility] [place] [address] Care Team Providers Care Drafting Detailer Name Role Phone Jerzy Vidal MD Primary Care Provider [phone] Encounter Details Date Type Department Care Team (Late Contact Info) Description 04/03/2019 Orders Only Hematology [place] [phone] Shon Schneider MD [facility] [place] [address] Other fatigue Social History Tobacco Use Types Packs/Day Years [...] AM EDT Office Visit Hematology/Oncology at [address] [phone] Shon Schneider MD [facility] [place] [address] Ciara Pitts APRN [address] [place] [address] [place] [address] 02/24/2024 9:30 AM EDT Infusion Hematology Oncology at [address] [phone] 03/02/2024 11:00 AM EDT Office Visit Hematology/Oncology at [address] [phone] Shon Schneider MD [facility] [place] [address] [address] HEMATOLOGY AND ONCOLOGY [place], [place] [address] 03/02/2024 12:30 PM EDT Infusion Hematology Oncology at [address] [phone] 03/09/2024 10:00 AM EDT Office Visit Hematology/Oncology at [address] [phone] Shon Schneider MD [facility] [place] [address] [address] HEMATOLOGY AND ONCOLOGY [place], [place] [id number] 03/09/2024 10:30 AM EDT Infusion Hematology Oncology at [address] [phone] documented as of this encounter Goals Goal [...] documented as of this encounter Results * T4, free (04/04/2019 8:52 AM EDT) Free T4 1.10 0.93 - 1.70 ng/dL [facility] Blood specimen (specimen) 04/04/2019 8:52 AM EDT 04/04/2019 9:02 AM EDT Narrative Resulting Agency Comment Spec In Lab Shon Schneider MD CHEMISTRY ORDERABLES Performing Organization Address City/[facility]/ZIP Co de Phone Number [facility] [place] [address] * (ABNORMAL) TSH (04/04/2019 8:52 AM EDT) Thyroid Stimulating Hormone 4.33(H) 0.27 - 4.20 mcIU/mL [facility] Blood specimen (specimen) 04/04/2019 8:52 AM EDT 04/04/2019 9:02 AM EDT Narrative Resulting Agency Comment Spec In Lab Shon Schneider MD CHEMISTRY ORDERABLES Performing Organization Address City/[facility]/ZIP Co de Phone Number [facility] [place] [address] documented in this encounter Visit Diagnoses Diagnosis Other fatigue Thymic carcinoma Malignant neoplasm of thymus documented in this encounter Care Teams Drafting Detailer Relationship Specialty Start Date End Date Jerzy Vidal MD [address] [place] [address] [place] [address] PCP - General [facility] Medicine 12/04/18 documented as of this encounter
--- OUTSIDE RECORDS SUMMARY | 2024-02-24 01:23 | XMS_ITS | Encounter Summary ---
Author Organization [facility] [place] [address] Care Team Providers Care Truck Farmer Name Role Phone Jerzy Vidal MD Primary Care Provider [phone] Reason for Visit * Reason Onset Date Comments Labs Only 03/09/2019 lab tracking Encounter Details Date Type Department Care Team (Late st Contact Info) Description 03/09/2019 Telephone Hematology Oncology at [address] [phone] Eden Vieira, RN Labs Only (lab tracking) Social History Tobacco Use Types Packs/Day Years Used Date Smoking Tobacco: Never Smokeless Tobacco: Never Sex and Gender Information Value Date Recorded Sex Assigned at Not on file Gender Identity Not on file Sexual Orientation Not on file documented as of this encounter Miscellaneous Notes * Telephone Encounter - Eden Vieira RN - 03/09/2019 8:33 AM EDT LAB TRACKING Brayan Pierre [id number] DIAGNOSIS: thymic cancer LABS ORDERED: cbc diff, cmp, mag MEDICATIONS: Sutent Standing transfusion orders from PCP at [facility] Assessment/Plan: Brayan is seeing Phillip Godoy APRN today. Pt is due to start next round of Sutent tomorrow. She will have labs again next week on . Results for BRAYAN PIERRE ( ) as of 03/09/2019 08:41 Ref. Range 02/15/2019 00:00 03/01/2019 00:00 03/08/2019 00:00 WBC Unknown 3.8 4 4.3 Hemoglobin Unknown 10.7 11.4 10.7 Hematocrit Unknown 31.8 32.9 31.0 Platelets Unknown 108 95 95 Neutr Abs (ANC) Unknown 2.39 2.28 2.40 Sodium Unknown 137 Potassium Unknown 3.8 3.9 BUN Unknown 13 14 Creatinine Unknown 0.70 0.60 Calcium Unknown 9.4 9.5 Magnesium Latest Units: mg/dL 1.4 1.3 1.2 Alk Phos Unknown 62 AST Unknown 26 37 30 ALT Unknown 21 19 T4, total Unknown 7.8 TSH Unknown 3.79 3.58 documented in this encounter Plan of Treatment Upcoming Encounters Date Type Department Care Team (Late st Contact Info) Description 02/24/2024 9:00 AM EDT Office Visit Hematology/Oncology at [address] [phone] Shon Schneider MD [facility] [place] [address] HEMATOLOGY AND ONCOLOGY [place], [place] [address] 02/24/2024 9:30 AM EDT Infusion Hematology Oncology at [address] [phone] 03/02/2024 11:00 AM EDT Office Visit Hematology/Oncology at [address] [phone] Shon Schneider MD [facility] [place] [address] [address] HEMATOLOGY AND ONCOLOGY [place], [place] [address] 03/02/2024 12:30 PM EDT Infusion Hematology Oncology at [address] [phone] 03/09/2024 10:00 AM EDT Office Visit Hematology/Oncology at [address] [phone] Shon Schneider MD [facility] [place] [address] Ciara Pitts APRN [address] [place] [address] DR HEMATOLOGY AND ONCOLOGY [place], [place] [id number] 03/09/2024 10:30 AM EDT Infusion Hematology Oncology at [address] [phone] documented as of this encounter Goals Goal [...] Associated Diagnosis Comments CBC (WITH DIFF) Routine 03/08/2019 TSH Routine 03/08/2019 T4, FREE Routine 03/08/2019 MAGNESIUM Routine 03/08/2019 COMPREHENSIVE METABOLIC PANEL Routine 03/08/2019 documented in this encounter Results * TSH (03/08/2019) Pathologist [facility] Thyroid Stimulating Hormone 3.58 Blood specimen (specimen) 03/08/2019 Shon Schneider MD CHEMISTRY ORDERABLES * T4, free (03/08/2019) Pathologist [facility] T4 Total 7.8 Blood specimen (specimen) 03/08/2019 Shon Schneider MD CHEMISTRY ORDERABLES * Magnesium (03/08/2019) Pathologist [facility] Magnesium 1.2 mg/dL Blood specimen (specimen) 03/08/2019 Shon Schneider MD CHEMISTRY ORDERABLES * Comprehensive metabolic panel (non-fasting) (03/08/2019) Pathologist [facility] Blood Urea Nitrogen 14 Creatinine 0.60 Sodium 137 Potassium 3.9 Calcium 9.5 Alkaline Phosphatase 62 Aspartate Aminotransferase 30 Alanine Aminotransferase 19 Blood specimen (specimen) 03/08/2019 Shon Schneider MD CHEMISTRY ORDERABLES * CBC (with Diff) (03/08/2019) Pathologist [facility] White Blood Cell 4.3 Hemoglobin 10.7 Hematocrit 31.0 Platelet 95 Neutrophil Absolute (ANC) - Automated 2.40 Blood specimen (specimen) 03/08/2019 Shon Schneider MD HEMATOLOGY ORDERABLE S documented in this encounter Visit Diagnoses Not on filedocumented in this encounter Care Teams Truck Farmer Relationship Specialty Start Date End Date Jerzy Vidal MD [address] [place] [address] [place] [address] PCP - [facility] 12/04/18 documented as of this encounter
--- OUTSIDE RECORDS SUMMARY | 2024-02-24 01:23 | XMS_ITS | Encounter Summary ---
Author Organization [facility] Address [facility] [place] [address] Care Team Providers Care Cell Geneticist Name Role Phone Jerzy Vidal MD Primary Care Provider [phone] Encounter Details Date Type Department Care Team (Late st Contact Info) Description 07/16/2019 Telephone Radiation Oncology at [address] [phone] Dorian Esparza Social History Tobacco Use Types [...] AM EDT Office Visit Hematology/Oncology at [address] [phone] Shon Schneider MD [facility] [place] [address] Ciara Pitts APRN [address] [place] [address] DR HEMATOLOGY AND ONCOLOGY [place], [place] [id number] 02/24/2024 9:30 AM EDT Infusion Hematology Oncology at [address] [phone] 03/02/2024 11:00 AM EDT Office Visit Hematology/Oncology at [address] [phone] Shon Schneider MD [facility] [place] [address] HEMATOLOGY AND ONCOLOGY [place], [place] [id number] 03/02/2024 12:30 PM EDT Infusion Hematology Oncology at [address] [phone] 03/09/2024 10:00 AM EDT Office Visit Hematology/Oncology at [address] [phone] Shon Schneider MD [facility] [place] [address] [address] HEMATOLOGY AND ONCOLOGY [place], [place] [id number] 03/09/2024 10:30 AM EDT Infusion Hematology Oncology at [address] [phone] documented as of this encounter Goals Goal [...] on filedocumented in this encounter Care Teams Cell Geneticist Relationship Specialty Start Date End Date Jerzy Vidal MD [address] [place] [address] [place] [address] PCP - [facility] Medicine 6/24/19 documented as of this encounter
--- OUTSIDE RECORDS SUMMARY | 2024-02-24 01:23 | XMS_ITS | Encounter Summary ---
Author Organization [facility] [place] [address] Care Team Providers Care Home Visits Nurse Name Role Phone Jerzy Vidal MD Primary Care Provider Reason for Visit * Reason Onset Date Comments Labs Only 04/27/2019 Lab tracking Encounter Details Date Type Department Care Team (Late st Contact Info) Description 04/27/2019 Telephone Hematology Oncology at [address] [phone] Eden Vieira, RN Labs Only (Lab tracking) Social History Tobacco Use Types Packs/Day Years Used Date Smoking Tobacco: Never Smokeless Tobacco: Never Sex and Gender Information Value Date Recorded Sex Assigned at Not on file Gender Identity Not on file Sexual Orientation Not on file documented as of this encounter Miscellaneous Notes * Telephone Encounter - Eden Vieira, RN - 04/27/2019 8:53 AM EST LAB TRACKING Brayan Pierre [id number] DIAGNOSIS: Thymic cancer LABS ORDERED: cbc diff, cmp, mag MEDICATIONS: Sutent 25 mg PO daily for 14 days with 7 days off. Standing transfusion orders from PCP at [facility] Assessment/Plan: Labs given to be reviewed by Dr. Schneider. Labs again next week. She states she feels well. She is about a week into her sutent cycle. She is going to call [facility] to set up mag infusion for Tuesday. They have standing order that was written 10/29. Results for BRAYAN PIERRE ( ) as of 04/27/2019 08:58 Ref. Range 04/04/2019 08:52 04/04/2019 10:29 04/19/2019 00:00 04/26/2019 00:00 WBC Unknown 2.6 (L) 3.0 2.5 RBC Latest Ref Range: 4.00 - 5.21 x10(6)/mcL 2.31 (L) Hemoglobin Unknown 9.4 (L) 9.2 9.1 Hematocrit Unknown 27.4 (L) 26.7 26.3 MCV Latest Ref Range: 82.6 - 94.4 fL 118.6 (H) MCH Latest Ref Range: 27.1 - 32.0 pg 40.7 (H) MCHC Latest Ref Range: 31.7 - 35.0 gm/dL 34.3 RDWSD Latest Ref Range: 37.0 - 46.0 fL 72.3 (H) RDWCV Latest Ref Range: 11.5 - 14.1 % 16.6 (H) Platelets Unknown 81 (L) 93 86 MPV Latest Ref Range: 7.6 - 12.9 fL 10.6 nRBC % Auto Latest Units: % 0.0 nRBC Abs Auto Latest Ref Range: 0.000 - 0.000 x10(3)/mcL 0.000 Neutr Abs (ANC) Unknown 1.40 (L) 1.89 1.32 Neutrophils % Latest Units: % 52.8 Immature Gran % Latest Units: % 0.40 Lymphocytes % Latest Units: % 37.7 Monocytes % Latest Units: % 7.2 Eosinophils % Latest Units: % 1.5 Basophils % Latest Units: % 0.4 [place] Gran Abs Latest Ref Range: 0.00 - 0.04 x10(3)/mcL 0.01 Lymphocytes Abs Latest Ref Range: 0.9 - 3.2 x10(3)/mcL 1.0 Monocyte Abs Latest Ref Range: 0.3 - 0.9 x10(3)/mcL 0.2 (L) Eosinophils Abs Latest Ref Range: 0.0 - 0.4 x10(3)/mcL 0.0 Basophils Abs Latest Ref Range: 0.0 - 0.1 x10(3)/mcL 0.0 Plat Estimate Unknown Decreased RBC Morphology Unknown Abnormal Macrocytes Latest Units: /HPF 6-10 Sodium Latest Ref Range: 135 - 145 mmol/L 139 Potassium Latest Ref Range: 3.5 - 5.0 mmol/L 4.0 Chloride Latest Ref Range: 98 - 107 mmol/L 99 CO2 Latest Ref Range: 22 - 31 mmol/L 29 Anion Gap Latest Ref Range: 5 - 15 mmol/L 11 BUN Unknown 14 9 12 Creatinine Unknown 0.84 0.60 0.70 eGFR Latest Ref Range: >=60 mL/min/1.73 m?? 75 eGFR Latest Ref Range: >=60 mL/min/1.73 m?? 87 Glucose Lvl Latest Ref Range: 65 - 199 mg/dL 109 Calcium Unknown 9.9 9.5 Magnesium Latest Units: mg/dL 0.59 (L) 1.3 1.1 Total Protein Latest Ref Range: 6.1 - 8.0 gm/dL 7.2 Albumin Latest Ref Range: 3.2 - 5.2 gm/dL 4.2 Total Bilirubin Latest Ref Range: 0.2 - 1.3 mg/dL 0.7 Alk Phos Unknown 44 54 52 AST Unknown 23 26 32 ALT Unknown 18 18 22 Free T4 Latest Ref Range: 0.93 - 1.70 ng/dL 1.10 TSH Latest Ref Range: 0.27 - 4.20 mcIU/mL 4.33 (H) CT CHEST ABDOMEN PELVIS W CONTRAST (GENERIC) Unknown Rpt documented in this encounter Plan of Treatment Upcoming Encounters Date Type Department Care Team (Late st Contact Info) Description 02/24/2024 9:00 AM EDT Office Visit Hematology/Oncology at [address] [phone] Shon Schneider MD [facility] [place] [address] Ciara Pitts APRN [address] [place] [address] DR HEMATOLOGY AND ONCOLOGY [place], [place] [phone] 02/24/2024 9:30 AM EDT Infusion Hematology Oncology at [address] [phone] 03/02/2024 11:00 AM EDT Office Visit Hematology/Oncology at [address] [phone] Shon Schneider MD [facility] [place] [address] [address] HEMATOLOGY AND ONCOLOGY [place], [place] [address] 03/02/2024 12:30 PM EDT Infusion Hematology Oncology at [address] [phone] 03/09/2024 10:00 AM EDT Office Visit Hematology/Oncology at [address] [phone] Shon Schneider MD [facility] [place] [place] [address] [address] HEMATOLOGY AND ONCOLOGY [place], [place] [id number] 03/09/2024 10:30 AM EDT Infusion Hematology Oncology at [address] [phone] documented as of this encounter Goals Goal [...] Associated Diagnosis Comments CBC (WITH DIFF) Routine 04/26/2019 MAGNESIUM Routine 04/26/2019 COMPREHENSIVE METABOLIC PANEL Routine 04/26/2019 documented in this encounter Results * Magnesium (04/26/2019) Magnesium 1.1 mg/dL Blood specimen (specimen) 04/26/2019 Shon Schneider MD CHEMISTRY ORDERABLES * Comprehensive metabolic panel (non-fasting) (04/26/2019) Blood Urea Nitrogen 12 Creatinine 0.70 Alkaline Phosphatase 52 Aspartate Aminotransferase 32 Alanine Aminotransferase 22 Blood specimen (specimen) 04/26/2019 Shon Schneider MD CHEMISTRY ORDERABLES * CBC (with Diff) (04/26/2019) White Blood Cell 2.5 Hemoglobin 9.1 Hematocrit 26.3 Platelet 86 Neutrophil Absolute (ANC) - Automated 1.32 Blood specimen (specimen) 04/26/2019 Shon Schneider MD HEMATOLOGY ORDERABLE S documented in this encounter Visit Diagnoses Not on filedocumented in this encounter Care Teams Home Visits Nurse Relationship Specialty Start Date End Date Jerzy Vidal MD [address] [place] [address] [place] [address] PCP - [facility] Medicine 12/04/18 documented as of this encounter
--- OUTSIDE RECORDS SUMMARY | 2024-02-24 01:23 | XMS_ITS | Encounter Summary ---
Author Organization [facility] [place] [address] Care Team Providers Care Shoe Laster Name Role Phone Jerzy Vidal MD Primary Care Provider [phone] Reason for Visit * Reason Onset Date Comments Labs Only 04/13/2019 lab tracking Encounter Details Date Type Department Care Team (Late Contact Info) Description 04/13/2019 Telephone Hematology Oncology at [address] [phone] Eden Vieira, RN Labs Only (lab tracking) Social History Tobacco Use Types Packs/Day Years Used Date Smoking Tobacco: Never Smokeless Tobacco: Never Sex and Gender Information Value Date Recorded Sex Assigned at Not on file Gender Identity Not on file Sexual Orientation Not on file documented as of this encounter Miscellaneous Notes * Telephone Encounter - Eden Vieira RN - 04/13/2019 10:26 AM EDT I call [facility] to see if Monica is getting her labs drawn this week and Liz explained she cancelled this week and will get drawn next. I have verified that this is ok with Dr. Schneider and he is fine with it. She is just finishing up her cycle of sutent. Will move lab track to next Tuesday. documented in this encounter Plan of Treatment Upcoming Encounters Date Type Department Care Team (Late Contact Info) Description 02/24/2024 9:00 AM EDT Office Visit Hematology/Oncology at [address] [phone] Shon Schneider MD [facility] [place] [address] HEMATOLOGY AND ONCOLOGY [place], [place] [address] [phone] 02/24/2024 9:30 AM EDT Infusion Hematology Oncology at [address] [phone] 03/02/2024 11:00 AM EDT Office Visit Hematology/Oncology at [address] [phone] Shon Schneider MD [facility] [place] [address] [address] HEMATOLOGY [place] [address] 03/02/2024 12:30 PM EDT Infusion Hematology Oncology at [address] [phone] 03/09/2024 10:00 AM EDT Office Visit Hematology/Oncology at [address] [phone] Shon Schneider MD [facility] [place] [address] [address] HEMATOLOGY AND ONCOLOGY [place], [place] [address] [phone] 03/09/2024 10:30 AM EDT Infusion Hematology Oncology at [address] [phone] documented as of this encounter Goals Goal Patient Goal Type Associated Problems Recent Progress Patient-Stated? Author DH Home Medication Compliance and Understanding Patient Facing Action Plan On track( 019 3:22 PM EST) Ivana Ashraf, [facility] Note: Remain 95% or better adherent to chemotherapy without severe side effects as assessed by days supply and patient reported adverse events at each refill documented as of this encounter Visit Diagnoses Not on filedocumented in this encounter Care Teams Shoe Laster Relationship Specialty Start Date End Date Jerzy Vidal MD [address] [place] [address] [place] [address] PCP - [facility] Medicine 12/04/18 documented as of this encounter
--- OUTSIDE RECORDS SUMMARY | 2024-02-24 01:23 | XMS_ITS | Encounter Summary ---
Author Organization [facility] Address [facility] [place] [address] Care Team Providers Care Motors Assembler Name Role Phone Jerzy Vidal MD Primary Care Provider [phone] Encounter Details Date Type Department Care Team (Late st Contact Info) Description 05/11/2019 3:30 PM EST Office Visit Hematology/Oncology at [address] [phone] Shon Coates MD [facility] [place] [address] Nadeen Srivastava, RN Thymic carcinoma Social History Tobacco Use Types Packs/Day Years Used Date Smoking Tobacco: Never Smokeless Tobacco: Never Sex and Gender Information Value Date Recorded Sex Assigned at Not on file Gender Identity Not on file Sexual Orientation Not on file documented as of this encounter Last Filed Vital Signs Vital Sign Reading Time Taken Comments Blood Pressure 123/81 05/11/2019 2:31 PM EST Pulse 68 05/11/2019 2:31 PM EST Temperature 36.9 ??C (98.4 ??F) 05/11/2019 2:31 PM ES T Respiratory Rate 18 05/11/2019 2:31 PM EST Oxygen Saturation 100% 05/11/2019 2:31 PM EST Inhaled Oxygen Concentration - - Weight 123.7 kg (272 lb 9.6 oz) 05/11/2019 2:31 PM EST Height - - Body Mass Index 40.15 04/04/2019 12:58 PM EDT documented in this encounter Progress Notes * Shon Coates MD - 05/11/2019 3:30 PM EST Subjective: Patient ID: Monica Jaramillo is a 63 y.o. female. Problem List: 1. Thymic carcinoma, [...] B. Biopsy of mediastinal mass 03/29 Path ([facility] [place] review) - Mediastinum, mass, biopsy: 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 [facility] review - CONSULT SLIDES FROM [facility]; [place], [place]: A. MEDIASTINUM, MASS, BIOPSY ([id number]; 03/22/2017): ? 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 ?Immunohistochemistry performed at the outside institution and reviewed at [facility] demonstrates the following staining profile in lesional cells: ? Positive - AE1/AE3, p40, PAX8, CD117, CD5(multifocal), CK7(scattered cells), synaptophysin, chromogranin ? Negative - CK20, TTF-1, GATA3, CD34 ? The immunohistochemical profile supports the above diagnosis. ? Ki67 (MIB-1) proliferation index performed at the referring institution and reviewed at [facility] is focally up to ~30%. NOTE: While diffuse synaptophysin and chromogranin expression is unusual for conventional thymic carcinoma, the overall histomorphology and immunophenotype is most in keeping with THYMIC SQUAMOUS CARCINOMA.?The extent of PAX8 and CD117 staining would be unusual for Nut carcinoma. B. MEDIASTINUM, ANTERIOR, 4.5 CM, ULTRASOUND GUIDED FINED NEEDLE ASPIRATION ([id number]; 03/22/17): The cytologic preparations were not reviewed [...] Second opinion with Dr. Roddy Vega in [place]. They reviewed the pathology and concurred they [...] She is feeling very well and continues totolerated therapy well. Her appetite is good and her weight is stable. She hosted a big group for Thanksgiving and enjoyed that. Her energy and exercise tolerance are good. No dyspnea. Her bowels areregular. Soc Hx: , lives in [place], [place] Tob - Never Etoh - rare [...] distension and no mass. There is no tenderness. There is no guarding. Musculoskeletal: She exhibits no edema. Lymphadenopathy: She has no cervical adenopathy. She has no axillary adenopathy. Right: No supraclavicular adenopathy present. Left: No supraclavicular adenopathy present. Neurological: She is alert and oriented to person, place, and time. Coordination normal. Skin: Skin is warm and dry. No rash noted. Psychiatric: She has a normal mood and affect. Her behavior is normal. Vitals reviewed. Labs: WBC/ANC - 2.01/1620, Hgb/Hct - 9.1/27, Plts - 87,000. BUN/Cr - 14/0.6. Mg - 1.5. Lytes and LFTs o/w unremarkable TSH - 3.28, Free T4 - 1.22 (WNL) Assessment and Plan: Ms. Jaramillo is a 63 yo female seen in f/u of thymic [...] trying. I spoke with Dr. Vega at [facility]. There were no clinical trials available [...] mg/day, 2 weeks followed by one w mechoopda off, with cycles repeated every three weeks. [...] of therapy and see her in three weeks. We talked about timing of the scan and will plan to do that in June. The TSH and free T4 are WNL. Will have her continue the same dose of synthroid and recheck this in 6 weeks. 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 She had an elevated fractional excretion of magnesium and therefore in 01/2019 was started on amiloride. The magnesium is low but a little better. She had a magnesium infusion about two weeks ago. [facility] One testing. Per the report, there were 3 genomic findings but no therapies associated with potential clinical benefit. Of note, pembrolizumab is now included on the NCCN list of second line therapies with a note that, in this disease, there is a higher risk of serious immune related toxicity, including myocarditis. documented in this encounter Miscellaneous Notes * Addendum Note - Shon Coates MD - 05/11/2019 3:30 PM ESTAddended by: SHON COATES on: 05/11/2019 04:35 PM Modules accepted: Orders documented in this encounter Plan of Treatment Upcoming Encounters Date Type Department Care Team (Late st Contact Info) Description 02/24/2024 9:00 AM EDT Office Visit Hematology/Oncology at [address] [phone] Shon Coates MD [facility] [place] [address] Ciara Pitts APRN [address] [place] [address] DR HEMATOLOGY AND ONCOLOGY [place], [place] [id number] 02/24/2024 9:30 AM EDT Infusion Hematology Oncology at [address] [phone] 03/02/2024 11:00 AM EDT Office Visit Hematology/Oncology at [address] [phone] Shon Coates MD [facility] [place] [address] HEMATOLOGY AND ONCOLOGY [place], [place] [phone] 03/02/2024 12:30 PM EDT Infusion Hematology Oncology at [address] [phone] 03/09/2024 10:00 AM EDT Office Visit Hematology/Oncology at [address] [phone] Shon Coates MD [facility] [place] [address] [address] HEMATOLOGY AND ONCOLOGY [place], [place] [id number] 03/09/2024 10:30 AM EDT Infusion Hematology Oncology at [address] [phone] documented as of this encounter Goals Goal Patient Goal Type Associated Problems Recent Progress Patient-Stated? Author DH Home Medication Compliance and Understanding Patient Facing Action Plan On track( 019 3:22 PM EST) Ivana Ashraf, [facility] Note: Remain 95% or better adherent to chemotherapy without severe side effects as assessed by days supply and patient reported adverse events at each refill documented as of this encounter Visit Diagnoses Diagnosis 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 documented in this encounter Care Teams Motors Assembler Relationship Specialty Start Date End Date Jerzy Vidal MD [address] [place] [address] [place] [address] PCP - [facility] Medicine 12/04/18 documented as of this encounter
--- OUTSIDE RECORDS SUMMARY | 2024-02-24 01:23 | XMS_ITS | Encounter Summary ---
Author Organization [facility] [place] [address] Care Team Providers Care Supervisor Tumblers Name Role Phone Jerzy Vidal MD Primary Care Provider Reason for Visit * Reason Onset Date Comments New Medication Request 05/15/2019 new speci ality pharmacy Encounter Details Date Type Department Care Team (Late st Contact Info) Description 05/15/2019 Telephone Hematology/Oncology at [address] [phone] Brionna Andrade RN New Medication Request (new speciality pharmacy) Social History Tobacco Use Types Packs/Day Years Used Date Smoking Tobacco: Never Smokeless Tobacco: Never Sex and Gender Information Value Date Recorded Sex Assigned at Not on file Gender Identity Not on file Sexual Orientation Not on file documented as of this encounter Miscellaneous Notes * Telephone Encounter - Brionna Andrade RN - 05/15/2019 12:10 PM EST Oral Chemotherapy Check Note 05/15/2019 Monica Jaramillo, 1955 Prescriptions for oral chemotherapy were reviewed as follows: Oral Chemotherapy Order sunitinib: Order details: ?? Dose: 25 mg ?? Route: oral ?? Quantity to be dispensed #: 14 doses ?? Number of refills: 6 ?? Instructions: Take 25 mg by mouth daily. ?? Cycle number and length: 14 days on 7 days off ?? Start date: After pt calls clinic Plan of care compared to information in the medical record, including note from provider on 05/11/19 (date). The prescription was found to be complete and accurate. It was printed, reviewed and signed by provider and manually faxed to [facility] [phone] phone [phone]. Victorino called and statedthey are no longer doing speciality meds. Pt can use [facility], script sent. documented in this encounter Plan of Treatment Upcoming Encounters Date Type Department Care Team (Late st Contact Info) Description 02/24/2024 9:00 AM EDT Office Visit Hematology/Oncology at [address] [phone] Shon Schneider MD [facility] [place] [address] Ciara Pitts [address] [place] [address] 02/24/2024 9:30 AM EDT Infusion Hematology Oncology at [address] [phone] 03/02/2024 11:00 AM EDT Office Visit Hematology/Oncology at [address] [phone] Shon Schneider MD [facility] [place] [address] [place] [address] 03/02/2024 12:30 PM EDT Infusion Hematology Oncology at [address] [phone] 03/09/2024 10:00 AM EDT Office Visit Hematology/Oncology at [address] [phone] Shon Schneider MD [facility] [place] [address] Ciara Pitts APRN [address] [place] [address] DR HEMATOLOGY AND ONCOLOGY [place], [place] [id number] 03/09/2024 10:30 AM EDT Infusion Hematology Oncology at [address] [phone] documented as of this encounter Goals Goal Patient Goal Type Associated Problems Recent Progress Patient-Stated? Author DH Home Medication Compliance and Understanding Patient Facing Action Plan On track( 019 3:22 PM EST) No Ivana Vanegas, [facility] Note: Remain 95% or better adherent to chemotherapy without severe side effects as assessed by days supply and patient reported adverse events at each refill documented as of this encounter Visit Diagnoses Not on filedocumented in this encounter Care Teams Supervisor Tumblers Relationship Specialty Start Date End Date Jerzy Vidal MD [address] [place] [address] [place] [address] PCP - [facility] Medicine 12/04/18 documented as of this encounter
--- OUTSIDE RECORDS SUMMARY | 2024-02-24 01:23 | XMS_ITS | Encounter Summary ---
Author Organization [facility] [place] [address] Care Team Providers Care Pharmacometrician Name Role Phone Jerzy Vidal MD Primary Care Provider [phone] Reason for Visit * Reason Onset Date Comments Medication Refill 05/11/2019 [facility] Encounter Details Date Type Department Care Team (Late st Contact Info) Description 05/11/2019 Telephone Hematology/Oncology at [address] [phone] Lashawn Skelton, armhole feller handstitching machine Refill ([facility]) Social History Tobacco Use Types Packs/Day Years Used Date Smoking Tobacco: Never Smokeless Tobacco: Never Sex and Gender Information Value Date Recorded Sex Assigned at Not on file Gender Identity Not on file Sexual Orientation Not on file documented as of this encounter Miscellaneous Notes * Telephone Encounter - Lashawn Skelton RN - 05/11/2019 3:58 PM EST Oral Chemotherapy Check Note 05/11/2019 Monica Jaramillo, 1955 Prescriptions for oral chemotherapy were reviewed as follows: Oral Chemotherapy Order sunitib: Order details: ?? Dose: 25 mg ?? Route: oral ?? Quantity to be dispensed #: 14 doses ?? Number of refills: 6 ?? Instructions: Take 25 mg po daily ?? Cycle number and length: 14 days on 7 days off ?? Start date: Jun 03, 2019 Plan of care compared to information in the medical record, including note from provider on 11/29/19 . The prescription was found to be complete and accurate. It was printed, reviewed and signed by provider and manually faxed to [facility] pharmacy [phone]. documented in this encounter Plan of Treatment Upcoming Encounters Date Type Department Care Team (Late st Contact Info) Description 02/24/2024 9:00 AM EDT Office Visit Hematology/Oncology at [address] [phone] Shon Schneider MD [facility] [place] [address] [address] [place] [address] 02/24/2024 9:30 AM EDT Infusion Hematology Oncology at [address] [phone] 03/02/2024 11:00 AM EDT Office Visit Hematology/Oncology at [address] [phone] Shon Schneider MD [facility] [place] [address] [address] HEMATOLOGY AND ONCOLOGY [place], [place] [address] 03/02/2024 12:30 PM EDT Infusion Hematology Oncology at [address] [phone] 03/09/2024 10:00 AM EDT Office Visit Hematology/Oncology at [address] [phone] Shon Schneider MD [facility] [place] [address] Ciara Pitts APRN [address] [place] [address] DR HEMATOLOGY AND ONCOLOGY [place], [place] [address] 03/09/2024 10:30 AM EDT Infusion Hematology Oncology at [address] [phone] documented as of this encounter Goals Goal [...] on filedocumented in this encounter Care Teams Pharmacometrician Relationship Specialty Start Date End Date Jerzy Vidal MD [address] [place] [address] [place] [address] PCP - [facility] Medicine 12/04/18 documented as of this encounter
--- OUTSIDE RECORDS SUMMARY | 2024-02-24 01:23 | XMS_ITS | Encounter Summary ---
Author Organization [facility] [place] [address] Care Team Providers Care Cloth Napping Supervisor Name Role Phone Jerzy Vidal MD Primary Care Provider [phone] Reason for Referral * Diagnostic Test (Routine) - Closed Specialty Diagnoses / Procedures Referred By Contac t Referred To Contact Radiology Diagnoses Thymic carcinoma Procedures CT Chest Abdomen Pelvis w Contrast (Generic) Shon Schneider MD [facility] [place] [address] [facility] [place] [address] Referral ID Status Reason Start Date Expiration Date V isits Requested Visits Authorized [id number] Closed Specialty Service Requested 03/22/2019 06/20/2019 1 1 Reason for Visit * Diagnostic Test (Routine) - Closed Specialty Diagnoses / Procedures Referred By Contac t Referred To Contact Radiology Diagnoses Thymic carcinoma Procedures CT Chest Abdomen Pelvis w Contrast (Generic) Shon Schneider MD [facility] [place] [address] [facility] [place] [address] Referral ID Status Reason Start Date Expiration Date V isits Requested Visits Authorized [id number] Closed Specialty Service Requested 03/22/2019 06/20/2019 1 1 Encounter Details Date Type Department Care Team (Latest Contact Info) Description 04/04/2019 7:49 AM EDT - 04/04/2019 8:00 AM EDT Hospital Encounter CT Scan at [facility] [place] [phone] Shon Schneider MD [facility] [place] [address] Thymic carcinoma Discharge Disposition: Home Social History Tobacco Use Types Packs/Day Years Used Date Smoking Tobacco: Never Smokeless Tobacco: Never Sex and Gender Information Value Date Recorded Sex Assigned at Not on file Gender Identity Not on file Sexual Orientation Not on file documented as of this encounter Medications at Time of Discharge Medication Sig Dispensed Refills Start Date End Date acetaminophen (TYLENOL) 500 mg Tablet Take 1,000 mg by mouth every 6 hours as needed for Pain. ascorbic acid, vitamin C, (VITAMIN C) 500 mg Tablet, Chewable Take 1 tablet by mouth daily. apixaban (Eliquis) 5 mg Tablet Take 5 mg by mouth 2 times daily. multivitamin (THERAGRAN) Tablet Take 1 tablet by mouth daily. aMILoride (MIDAMOR) 5 mg TabletIndications:H ypomagnesemia Take 1 tablet by mouth daily. 30 tablet 3 01/26/2019 05/21/2019 sunitinib (SUTENT) chemo tabletIndications:T hymic carcinoma Take 25 mg by mouth daily. Call clinic before starting medication. Take 25 mg PO daily for 14 days followed by 7 days off with cycles repeated every 21 days. The prescription should be filled with whatever strength the pharmacy has available to achieve the prescribed dose, preferably taking the smallest number of capsules/tablets prescribed. 14 Doses of treatment to dispense 6 12/19/2018 05/11/2019 levothyroxine (SYNTHROID) 25 mcg Tablet Take 1 tablet by mouth daily. 90 tablet 3 10/27/2018 10/30/2019 potassium chloride (K-DUR/KLOR-CON) 20 mEq Tab Sust.Rel. Particle/CrystalInd ications:hypokalemi a prevention Take 20 mEq by mouth daily. Indications: hypokalemia prevention 09/07/2019 magnesium oxide (MAG-OX) 400 mg TabletIndications:h ypomagnesemia Take 400 mg by mouth 2 times daily. Indications: hypomagnesemia 07/17/2021 prochlorperazine (COMPAZINE) 5 mg Tablet Take 1 tablet by mouth every 6 hours as needed for Nausea. 15 tablet 05/28/2017 09/26/2020 meTOPROLOL succinate (TOPROL-XL) 200 mg Tablet Sustained Release 24 hrIndications:multi focal atrial tachycardia Take 200 mg by mouth daily. Indications: Multifocal Atrial Tachycardia 01/29/2022 DILTiazem (CARDIZEM CD) 240 mg Capsule, Sust. Release 24 hrIndications:ventr icular rate control in atrial fibrillation Take 240 mg by mouth daily. Indications: Ventricular Rate Control in Atrial Fibrillation 11/07/2022 documented as of this encounter Plan of Treatment Upcoming Encounters Date Type Department Care Team (Late st Contact Info) Description 02/24/2024 9:00 AM EDT Office Visit Hematology/Oncology at [address] [phone] Shon Schneider MD [facility] [place] [address] [place] [address] 02/24/2024 9:30 AM EDT Infusion Hematology Oncology at [address] [phone] 03/02/2024 11:00 AM EDT Office Visit Hematology/Oncology at [address] [phone] Shon Schneider MD [facility] [place] [address] Ciara Pitts [address] [place] [address] 03/02/2024 12:30 PM EDT Infusion Hematology Oncology at [address] [phone] 03/09/2024 10:00 AM EDT Office Visit Hematology/Oncology at [address] [phone] Shon Schneider MD [facility] [place] [place] [address] Ciara Pitts APRN [address] [place] [address] DR HEMATOLOGY AND ONCOLOGY [place], [place] [address] 03/09/2024 10:30 AM EDT Infusion Hematology Oncology at [address] [phone] documented as of this encounter Goals Goal [...] Priority Date/Time Associated Diagnosis Comments LAB SCAN 05/11/2019 12:00 AM EST LAB SCAN 05/11/2019 12:00 AM EST LAB SCAN 05/11/2019 12:00 AM EST LAB SCAN 05/03/2019 12:00 AM EST LAB SCAN 04/26/2019 12:00 AM EST LAB SCAN 04/19/2019 12:[address] CHEST ABDOMEN PELVIS W CONTRAST (GENERIC) Routine 04/04/2019 10:29 AM EDT Thymic carcinoma documented in this encounter Results * SCAN DOC: LAB (05/11/2019 12:00 AM EST) Narrative 05/11/2019 12:00 AM EST Ordered by an unspecified provider. Scanning Provider MEDIA MGR SCAN EXT O RDR/RSLT * SCAN DOC: LAB (05/11/2019 12:00 AM EST) Narrative 05/11/2019 12:00 AM EST Ordered by an unspecified provider. Scanning Provider MEDIA MGR SCAN EXT O RDR/RSLT * SCAN DOC: LAB (05/11/2019 12:00 AM EST) Narrative 05/11/2019 12:00 AM EST Ordered by an unspecified provider. Scanning Provider MEDIA MGR SCAN EXT O RDR/RSLT * SCAN DOC: LAB (05/03/2019 12:00 AM EST) Narrative 05/03/2019 12:00 AM EST Ordered by an unspecified provider. Scanning Provider MEDIA MGR SCAN EXT O RDR/RSLT * SCAN DOC: LAB (04/26/2019 12:00 AM EST) Narrative 04/26/2019 12:00 AM EST Ordered by an unspecified provider. Scanning Provider MEDIA MGR SCAN EXT O RDR/RSLT * SCAN DOC: LAB (04/19/2019 12:00 AM EST) Narrative 04/19/2019 12:00 AM EST Ordered by an unspecified provider. Scanning Provider MEDIA MGR SCAN EXT O RDR/RSLT * CT Chest Abdomen Pelvis w Contrast (Generic) (04/04/2019 10:29 AM EDT) Anatomical Region Laterality Modality Abdomen, Pelvis Computed Tomogra phy Impressions 04/04/2019 11:05 AM EDT 1. 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 2. ??Increased size of LEFT pericardial lymph node. 3. ??Stable LEFT breast mass. 4. ??Stable multiple 5 mm or less LEFT pleural-based nodules. Thank you for letting us participate in the care of this patient. For questions regarding this report, please contact the number below. ? Narrative 04/04/2019 11:05 AM EDT EXAMINATION: CT CHEST ABDOMEN PELVIS W CONTRAST (GENERIC) CLINICAL HISTORY: Thymic carcinoma, on sunitinib. ??Restaging TECHNIQUE: Helical CT of the chest, abdomen, and pelvis was performed following the intravenous administration of contrast. Administered 120.0 ml of OMNIPAQUE 350.00 mg/ml. Oral contrast was administered. COMPARISON: 12/19/2018 FINDINGS: Chest: Lungs and large airways: Stable. No parenchymal nodules. All the nodules are pleural-based. Pleura: Multiple 5 mm or less LEFT pleural-based nodules, which are stable. Trace LEFT pleural effusion, decreased Heart/vasculature: Multiple 5 mm or less nodules seen along the anterior pericardium. Lymph nodes: Increased size of a LEFT pericardial lymph node, measuring 15 mm, compared to 10 mm previously. Mediastinum and william: Stable lobulated mediastinal mass, measuring 2.9 x 9.0 cm. As noted previously contains coarse calcifications. Chest wall: As noted previously, a stable 2.3 cm LEFT breast soft tissue nodule containing a punctate calcification. Abdomen/pelvis: Liver: Normal size and attenuation without lesions. Bile ducts: Nondilated. Gallbladder: No calcified gallstones. Normal caliber wall. Pancreas: Normal attenuation without ductal dilatation. Spleen: Normal. Adrenals: Normal. Kidneys: Normal. No renal collecting system obstruction bilaterally Urinary Bladder: Normal. Vasculature: No aneurysm. Lymph Nodes: ??No enlarged lymph nodes. Bowel: Nondilated, no wall thickening. ?? Peritoneum and mesentery: No ascites, free air, or loculated fluid collection. No mesenteric inflammation. Abdominal wall: Stable ventral hernia containing fat. Second stable more inferior pelvic wall hernia containing nonobstructed loops of small bowel. Reproductive organs: Stable uterine fibroids with coarsened calcifications. Osseous structures: Stable lytic lesion L2 vertebral body. Procedure Note Roddy Marinelli MD - 04/04/2019 EXAMINATION: CT CHEST ABDOMEN PELVIS W CONTRAST (GENERIC) CLINICAL HISTORY: Thymic carcinoma, on sunitinib. Restaging TECHNIQUE: Helical CT of the chest, abdomen, and pelvis was performedfollowing the intravenous administration of contrast. Administered 120.0 ml ofOMNIPAQUE 350.00 mg/ml. Oral contrast was administered. COMPARISON: 12/19/2018 FINDINGS: Chest: Lungs and large airways: Stable. No parenchymal nodules. All the nodulesare pleural-based. Pleura: Multiple 5 mm or less LEFT pleural-based nodules, which arestable. Trace LEFT pleural effusion, decreased Heart/vasculature: Multiple 5 mm or less nodules seen along the anterior pericardium. Lymph nodes: Increased size of a LEFT pericardial lymph node, measuring 15mm, compared to 10 mm previously. Mediastinum and william: Stable lobulated mediastinal mass, measuring 2.9 x9.0 cm. As noted previously contains coarse calcifications. Chest wall: As noted previously, a stable 2.3 cm LEFT breast soft tissuenodule containing a punctate calcification. Abdomen/pelvis: Liver: Normal size and attenuation without lesions. Bile ducts: Nondilated. Gallbladder: No calcified gallstones. Normal caliber wall. Pancreas: Normal attenuation without ductal dilatation. Spleen: Normal. Adrenals: Normal. Kidneys: Normal. No renal collecting system obstruction bilaterally Urinary Bladder: Normal. Vasculature: No aneurysm. Lymph Nodes: No enlarged lymph nodes. Bowel: Nondilated, no wall thickening. Peritoneum and mesentery: No ascites, free air, or loculated fluidcollection. No mesenteric inflammation. Abdominal wall: Stable ventral hernia containing fat. Second stable more inferior pelvic wall hernia containing nonobstructed loops of smallbowel. Reproductive organs: Stable uterine fibroids with coarsenedcalcifications. Osseous structures: Stable lytic lesion L2 vertebral body. IMPRESSION 1. Stable anterior mediastinal mass, compatible with history of knownthymic carcinoma. 2. Increased size of LEFT pericardial lymph node. 3. Stable LEFT breast mass. 4. Stable multiple 5 mm or less LEFT pleural-based nodules. Thank you for letting us participate in the care of this patient. Forquestions regarding this report, please contact the number below. 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 documented in this encounter Administered Medications Inactive Administered Medications - up to 3 most recent administrations Medication Order MAR Action Action Date Dose Rate Site iohexol (OMNIPAQUE) 350 mg/mL solution 0-200 mL 0-200 mL, Intravenous, ONCE PRN, 1 dose, Starting on Tue04/04/19 at 1029, Until Tue04/04/19 at 1030, Per Protocol, Warning Vesicant/Irritant Medication , Radiology Contrast, Routine Given 04/04/2019 10:30 AM EDT 120 mLs iohexol (OMNIPAQUE) 350 mg/mL solution 0-50 mL 0-50 mL, Oral, ONCE PRN, 1 dose, Starting on Tue04/04/19 at 1029, Until Tue04/04/19 at 1029, Per Protocol, Warning Vesicant/Irritant Medication , Radiology Contrast, Routine Given 04/04/2019 10:29 AM EDT 50 mLs documented in this encounter Care Teams Cloth Napping Supervisor Relationship Specialty Start Date End Date Jerzy Vidal MD [address] [place] [address] [place] [address] PCP - [facility] Medicine 12/04/18 documented as of this encounter
--- OUTSIDE RECORDS SUMMARY | 2024-02-24 01:23 | XMS_ITS | Encounter Summary ---
Author Organization [facility] [place] [address] Care Team Providers Care Tooth Cutter Name Role Phone Jerzy Vidal MD Primary Care Provider [phone] Reason for Visit * Reason Onset Date Comments Other 08/23/2019 Encounter Details Date Type Department Care Team ([facility] Contact Info) Description 08/23/2019 Telephone Hematology/Oncology at [address] [phone] Brionna Andrade RN Other Social History Tobacco Use Types Packs/Day Years Used Date Smoking Tobacco: Never Smokeless Tobacco: Never Sex and Gender Information Value Date Recorded Sex Assigned at Not on file Gender Identity Not on file Sexual Orientation Not on file documented as of this encounter Miscellaneous Notes * Telephone Encounter - Brionna Andrade RN - 08/23/2019 12:44 PM EDT Graciela CORTES at [facility] infusion called and stated pt had HBG of 7.4 and per standing orders she would only get one unit. Pt is telling her she is very tired, not short of breath. VS 138/81 84 16 o2 97% 96.4f. Reviewed with Dr. Schneider and he said she can get two units for HBG less than 8 with premeds. Newstanding orders faxed to [facility] infusion. Amy agrees with plan. documented in this encounter Plan of Treatment Upcoming Encounters Date Type Department Care Team (Late Contact Info) Description 02/24/2024 9:00 AM EDT Office Visit Hematology/Oncology at [address] [phone] Shon Schneider MD [facility] [place] [address] [address] HEMATOLOGY AND ONCOLOGY [place], [place] [address] 02/24/2024 9:30 AM EDT Infusion Hematology Oncology at [address] [phone] 03/02/2024 11:00 AM EDT Office Visit Hematology/Oncology at [address] [phone] Shon Schneider MD [facility] [place] [address] [address] HEMATOLOGY AND ONCOLOGY [place], [place] [address] 03/02/2024 12:30 PM EDT Infusion Hematology Oncology at [address] [phone] 03/09/2024 10:00 AM EDT Office Visit Hematology/Oncology at [address] [phone] Shon Schneider MD [facility] [place] [place] [address] Ciara Pitts, [address] HEMATOLOGY AND ONCOLOGY [place], [place] [address] 03/09/2024 10:30 AM EDT Infusion Hematology Oncology at [address] [phone] documented as of this encounter Goals Goal [...] on filedocumented in this encounter Care Teams Tooth Cutter Relationship Specialty Start Date End Date Jerzy Vidal MD [address] [place] [address] [place] [address] PCP - [facility] Medicine 12/04/18 documented as of this encounter
--- OUTSIDE RECORDS SUMMARY | 2024-02-24 01:23 | XMS_ITS | Encounter Summary ---
Author Organization [facility] [place] [address] Care Team Providers Care Water Project Engineer Name Role Phone Jerzy Vidal MD Primary Care Provider [phone] Reason for Visit * Reason Onset Date Comments Labs Only 05/11/2019 Encounter Details Date Type Department Care Team (Late st Contact Info) Description 05/11/2019 Telephone Hematology/Oncology at [address] [phone] Lashawn Skelton, RN Labs Only Social History Tobacco Use Types Packs/Day Years Used Date Smoking Tobacco: Never Smokeless Tobacco: Never Sex and Gender Information Value Date Recorded Sex Assigned at Not on file Gender Identity Not on file Sexual Orientation Not on file documented as of this encounter Miscellaneous Notes * Telephone Encounter - Lashawn Skelton, RN - 05/11/2019 12:15 PM EST LAB TRACKING Brayan Pierre [id number] DIAGNOSIS: Thymic cancer LABS ORDERED: cbc diff, cmp, mag MEDICATIONS: Sutent 25 mg PO daily for 14 days with 7 days off. Standing transfusion orders from PCP at [facility] Assessment/Plan: Labs given to be reviewed by Dr. Schneider. She is due to start the sutent cycle on Tuesday. She is feeling well. She will next have labs drawn prior to the next cycle in 3 weeks. Results for BRAYAN PIERRE ( ) as of 05/11/2019 15:42 Ref. Range 04/26/2019 00:00 05/03/2019 00:00 05/11/2019 00:00 WBC Unknown 2.5 2.8 2.8 Hemoglobin Unknown 9.1 9.5 9.1 Hematocrit Unknown 26.3 27.3 27.0 Platelets Unknown 86 93 87 Neutr Abs (ANC) Unknown 1.32 1.59 1.62 Potassium Unknown 3.7 3.9 BUN Unknown 12 12 14 Creatinine Unknown 0.70 0.60 0.6 Calcium Unknown 9.5 Magnesium Latest Ref Range: 1.6 - 2.3 mg/dL 1.1 1.2 1.5 (A) Total Bilirubin Unknown 0.7 Alk Phos Unknown 52 51 AST Unknown 32 35 ALT Unknown 22 22 documented in this encounter Plan of Treatment Upcoming Encounters Date Type Department Care Team (Late st Contact Info) Description 02/24/2024 9:00 AM EDT Office Visit Hematology/Oncology at [address] [phone] Shon Schneider MD [facility] [place] [address] [address] [place] [address] 02/24/2024 9:30 AM EDT Infusion Hematology Oncology at [address] [phone] 03/02/2024 11:00 AM EDT Office Visit Hematology/Oncology at [address] [phone] Shon Schneider MD [facility] [place] [address] [address] [place] [address] 03/02/2024 12:30 PM EDT Infusion Hematology Oncology at [address] [phone] 03/09/2024 10:00 AM EDT Office Visit Hematology/Oncology at [address] [phone] Shon Schneider MD [facility] [place] [address] Ciara Pitts DOPE MAINTENANCE WORKER [address] [place] [address] DR [place] [address] 03/09/2024 10:30 AM EDT Infusion Hematology Oncology at [address] [phone] documented as of this encounter [...] Associated Diagnosis Comments CBC (WITH DIFF) Routine 05/11/2019 MAGNESIUM Routine 05/11/2019 COMPREHENSIVE METABOLIC PANEL Routine 05/11/2019 documented in this encounter Results * Comprehensive metabolic panel (non-fasting) (05/11/2019) Blood Urea Nitrogen 14 Creatinine 0.6 Potassium 3.9 Blood specimen (specimen) 05/11/2019 Shon Schneider MD CHEMISTRY ORDERABLES * CBC (with Diff) (05/11/2019) Pathologist [facility] White Blood Cell 2.8 Hemoglobin 9.1 Hematocrit 27.0 Platelet 87 Neutrophil Absolute (ANC) - Automated 1.62 Blood specimen (specimen) 05/11/2019 Shon Schneider MD HEMATOLOGY ORDERABLE S * (ABNORMAL) Magnesium (05/11/2019) Magnesium 1.5(A) 1.6 - 2.3 mg/dL Blood specimen (specimen) 05/11/2019 Shon Schneider MD CHEMISTRY ORDERABLES documented in this encounter Visit Diagnoses Not on filedocumented in this encounter Care Teams Water Project Engineer Relationship Specialty Start Date End Date Jerzy Vidal MD [address] [place] [address] [place] [address] PCP - [facility] Medicine 12/04/18 documented as of this encounter
--- OUTSIDE RECORDS SUMMARY | 2024-02-24 01:23 | XMS_ITS | Encounter Summary ---
Author Organization [facility] [place] [address] Care Team Providers Care Stock Speculator Name Role Phone Jerzy Vidal MD Primary Care Provider Reason for Referral * Diagnostic Test (Routine) - Closed Specialty Diagnoses / Procedures Referred By Contac t Referred To Contact Radiology Diagnoses Thymic carcinoma Procedures CT Chest Abdomen Pelvis w Contrast (Generic) Shon Schneider MD [facility] [place] [address] [facility] [place] [address] Referral ID Status Reason Start Date Expiration Date V isits Requested Visits Authorized [id number] Closed Specialty Service Requested 07/20/2019 10/18/2019 1 1 Reason for Visit * Diagnostic Test (Routine) - Closed Specialty Diagnoses / Procedures Referred By Contac t Referred To Contact Radiology Diagnoses Thymic carcinoma Procedures CT Chest Abdomen Pelvis w Contrast (Generic) Shon Schneider MD [facility] [place] [address] [facility] [place] [address] Referral ID Status Reason Start Date Expiration Date V isits Requested Visits Authorized [id number] Closed Specialty Service Requested 07/20/2019 10/18/2019 1 1 Encounter Details Date Type Department Care Team (Latest Contact Info) Description 07/31/2019 7:32 AM EST - 07/31/2019 7:39 AM EST Hospital Encounter CT Scan [place] [phone] Shon Schneider MD [facility] [place] [address] Thymic carcinoma Discharge Disposition: Home Social History [...] Tablet Take 1 tablet by mouth daily. PROAIR HFA 90 mcg/actuation HFA Aerosol Inhaler 05/08/2019 09/28/2019 aMILoride (MIDAMOR) 5 mg TabletIndications:H ypomagnesemia TAKE ONE TABLET BY MOUTH EVERY DAY 30 tablet 3 05/21/2019 09/21/2019 sunitinib (SUTENT) chemo tabletIndications:T hymic carcinoma Take [...] 14 Doses of treatment to dispense 6 05/11/2019 08/17/2019 levothyroxine (SYNTHROID) 25 mcg Tablet Take 1 [...] AM EDT Office Visit Hematology/Oncology at [address] [phone] Shon Schneider MD [facility] [place] [address] [address] [place] [address] 02/24/2024 9:30 AM EDT Infusion Hematology Oncology at [address] [phone] 03/02/2024 11:00 AM EDT Office Visit Hematology/Oncology at [address] [phone] Shon Schneider MD [facility] [place] [address] [address] [place] [address] 03/02/2024 12:30 PM EDT Infusion Hematology Oncology at [address] [phone] 03/09/2024 10:00 AM EDT Office Visit Hematology/Oncology at [address] [phone] Shon Schneider MD [facility] [place] [address] [address] Pitts APRN [address] [place] [address] DR HEMATOLOGY AND ONCOLOGY [place], [place] [address] 03/09/2024 10:30 AM EDT Infusion Hematology Oncology at [address] [phone] documented as of this encounter Goals Goal [...] Procedure Name Priority Date/Time Associated Diagnosis Comments CT CHEST ABDOMEN PELVIS W CONTRAST (GENERIC) Routine 07/31/2019 9:49 AM EST Thymic carcinoma documented in this encounter Results * (ABNORMAL) CT Chest Abdomen Pelvis w [...] Finding 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 documented in this encounter Administered Medications Inactive Administered Medications - up to 3 most recent administrations Medication Order MAR Action Action Date Dose Rate Site iohexoL (OMNIPAQUE) 350 mg/mL solution 0-200 mL 0-200 mL, Intravenous, ONCE PRN, 1 dose, Starting on 07/31/19 at 0950, Until 07/31/19 at 0950, Per Protocol, Warning Vesicant/Irritant Medication , Radiology Contrast, Routine Given 07/31/2019 9:50 AM EST 120 mLs iohexoL (OMNIPAQUE) 350 mg/mL solution 0-50 mL 0-50 mL, Oral, ONCE PRN, 1 dose, Starting on 07/31/19 at 0950, Until 07/31/19 at 0950, Per Protocol, Warning Vesicant/Irritant Medication , Radiology Contrast, Routine Given 07/31/2019 9:50 AM EST 50 mLs documented in this encounter Care Teams Stock Speculator Relationship Specialty Start Date End Date Jerzy Vidal MD [address] [place] [address] [place] [address] PCP - [facility] Medicine 12/04/18 documented as of this encounter
--- OUTSIDE RECORDS SUMMARY | 2024-02-24 01:23 | XMS_ITS | Encounter Summary ---
Author Organization [facility] [place] [address] Care Team Providers Care Cook Railroad Name Role Phone Jerzy Vidal MD Primary Care Provider [phone] Encounter Details Date Type Department Care Team (Late st Contact Info) Description 03/09/2019 1:30 PM EDT Office Visit Hematology/Oncology at [address] [phone] Radha Godoy, [employer]OUN[employer]IPE [address] [place] [address] Thymic carcinoma Social History Tobacco Use Types Packs/Day Years Used Date Smoking Tobacco: Never Smokeless Tobacco: Never Sex and Gender Information Value Date Recorded Sex Assigned at Not on file Gender Identity Not on file Sexual Orientation Not on file documented as of this encounter Last Filed Vital Signs Vital Sign Reading Time Taken Comments Blood Pressure 150/75 03/09/2019 1:19 PM EDT Pulse 88 03/09/2019 1:19 PM EDT Temperature 37.3 ??C (99.2 ??F) 03/09/2019 1:19 PM ED T Respiratory Rate 16 03/09/2019 1:19 PM EDT Oxygen Saturation 100% 03/09/2019 1:19 PM EDT Inhaled Oxygen Concentration - - Weight 122.5 kg (270 lb) 03/09/2019 1:19 PM EDT Height 175.3 cm (5' 9.02) 03/09/2019 1:19 PM ED T Body Mass Index 39.85 03/09/2019 1:19 PM EDT documented in this encounter Progress Notes * Radha Godoy, MOUNTER SMOKING PIPE - 03/09/2019 1:30 PM EDT Subjective: Patient ID: Monica [...] pleural effusion with compression atelectasis. transferred to [facility] for further evaluation and workup [...] - CONSULT SLIDES FROM [facility]; [place], [place]: A. MEDIASTINUM, MASS, BIOPSY ([id number]; 03/22/2017): ? 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 ?Immunohistochemistry performed at the outside institution and reviewed at [facility] demonstrates the following staining profile in lesional cells: ? Positive - AE1/AE3, p40, PAX8, CD117, CD5(multifocal), CK7(scattered cells), synaptophysin, chromogranin ? Negative - CK20, TTF-1, GATA3, CD34 ? The immunohistochemical profile supports the above diagnosis. ? Ki67 (MIB-1) proliferation index performed at the referring institution and reviewed at [facility] is focally up to ~30%. NOTE: While diffuse synaptophysin and chromogranin expression is unusual for conventional thymic carcinoma, the overall histomorphology and immunophenotype is most in keeping with THYMIC SQUAMOUS CARCINOMA.?The extent of PAX8 and CD117 staining would be unusual for Nut carcinoma. B. MEDIASTINUM, ANTERIOR, 4.5 CM, ULTRASOUND GUIDED FINED NEEDLE ASPIRATION ([id number]; 03/22/17): The cytologic preparations were not reviewed [...] Second opinion with Dr. Roddy Vega in [place]. They reviewed the pathology and concurred they [...] Began chemotherapy with carboplatin plus paclitaxel, s/p [address] chest 08/17/17 - Impression: [...] day, 14 days on, 7 days off 2. H/o atrial fibrillation 3. HTN 4. [...] = 3.1 cm 6. Clinical correlation required HPI: Ms. Jaramillo is seen in follow up thymic carcinoma. The history is summarized above. Interim History: Monica Wolfe returns to clinic today accompanied by her . She continues to feel generally well. She has been taking amiloride for the hypomagnesemia. Today her magnesium level is low at 1.2. She denies pain, fever, chills, night sweats or unusual bleeding. She is planing a road trip this weekend to view the Fall foliage around the area. She is off her Sutent now, but is scheduled to restart on Tuesday. PMH, PSH, FH, and SH: Except as mentioned in the interim history, unchanged since last office visit. Review of Systems Constitutional: Negative. HENT: Negative. Eyes: Negative. Respiratory: Negative. Cardiovascular: Negative. Gastrointestinal: Negative. Endocrine: Negative. Genitourinary: Negative. Musculoskeletal: Negative. Skin: Negative. Allergic/Immunologic: Negative. Neurological: Negative. Hematological: Negative. Psychiatric/Behavioral: Negative. Objective: Physical Exam Constitutional: She is oriented to person, place, and time. She appears well- developed and well-nourished. HENT: Head: Normocephalic and atraumatic. Nose: Nose normal. Eyes: Conjunctivae and EOM are normal. Neck: Normal range of motion. Neck supple. Cardiovascular: Normal rate and regular rhythm. Pulmonary/Chest: Effort normal and breath sounds normal. Abdominal: Soft. Bowel sounds are normal. Musculoskeletal: Normal range of motion. Neurological: She is alert and oriented to person, place, and time. Skin: Skin is warm and dry. Psychiatric: She has a normal mood and affect. Her behavior is normal. Vitals reviewed. Vitals: BP 150/75 (Patient Position: Sitting) Pulse 88 Temp 37.3 ??C (99.2 ??F) (Oral) Resp 16 Ht 175.3 cm (5' 9.02) Wt 122.5 kg (270 lb) SpO2 100% BMI 39.85 kg/m?? 03/08/19 LABs: WBC 4.3, Hgb./Hct. 10.7/31.0, Plts. 95, ANC 2.4 Chem: N+/K+ 137/3.9, BUN/Creat. 14/0.6, AST 30, ALT 19, Alk. Phos. 62, Mag. 1.2 Assessment and Plan: 1. Thymic carcinoma. Currently being treated with Sutent. 2. Reviewed lab results with patient and spouse. Resume current dose and frequency of Sutent on Tuesday. RTC in 1 month for OV with MD, CT and labs prior to visit. Radha Godoy, MSN, MOUNTER S[employer]IPE, AOCNP documented in this encounter Plan of Treatment Upcoming Encounters Date Type Department Care Team (Late st Contact Info) Description 02/24/2024 9:00 AM EDT Office Visit Hematology/Oncology at [address] [phone] Shon Schneider MD [facility] [place] [address] [address] HEMATOLOGY [place] [address] 02/24/2024 9:30 AM EDT Infusion Hematology Oncology at [address] [phone] 03/02/2024 11:00 AM EDT Office Visit Hematology/Oncology at [address] [phone] Shon Schneider MD [facility] [address] [address] HEMATOLOGY AND ONCOLOGY [place], [place] [address] 03/02/2024 12:30 PM EDT Infusion Hematology Oncology at [address] [phone] 03/09/2024 10:00 AM EDT Office Visit Hematology/Oncology at [address] [phone] Shon Schneider MD [facility] [place] [address] [address] HEMATOLOGY AND ONCOLOGY [place], [place] [address] 03/09/2024 10:30 AM EDT Infusion Hematology Oncology at [address] [phone] documented as of this encounter Goals Goal Patient Goal Type Associated Problems Recent Progress Patient-Stated? Author DH Home Medication Compliance and Understanding Patient Facing Action Plan On track( 019 3:22 PM EST) No Ivana Vanegas, [facility] Note: Remain 95% or better adherent to chemotherapy without severe side effects as assessed by days supply and patient reported adverse events at each refill documented as of this encounter Procedures Procedure Name Priority Date/Time Associated Diagnosis Comments LAB SCAN 03/30/2019 12:00 AM EDT LAB SCAN 03/22/2019 12:00 AM EDT LAB SCAN 03/16/2019 12:00 AM EDT documented in this encounter Results * SCAN DOC: LAB (03/30/2019 12:00 AM EDT) Narrative 03/30/2019 12:00 AM EDT Ordered by an unspecified provider. Scanning Provider MEDIA MGR SCAN EXT O RDR/RSLT * SCAN DOC: LAB (03/22/2019 12:00 AM EDT) Narrative 03/22/2019 12:00 AM EDT Ordered by an unspecified provider. Scanning Provider MEDIA MGR SCAN EXT O RDR/RSLT * SCAN DOC: LAB (03/16/2019 12:00 AM EDT) Narrative 03/16/2019 12:00 AM EDT Ordered by an unspecified provider. 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 documented in this encounter Care Teams Cook Railroad Relationship Specialty Start Date End Date Jerzy Vidal MD [address] [place] [address] [place] [address] PCP - [facility] Medicine 12/04/18 documented as of this encounter
--- OUTSIDE RECORDS SUMMARY | 2024-02-24 01:23 | XMS_ITS | Encounter Summary ---
Author Organization [facility] [place] [address] Care Team Providers Care Clinical Research Nurse Name Role Phone Jerzy Vidal MD Primary Care Provider [phone] Reason for Visit * Reason Onset Date Comments Labs Only 07/19/2019 lab tracking Encounter Details Date Type Department Care Team (Late st Contact Info) Description 07/19/2019 Telephone Hematology/Oncology at [address] [phone] Brionna Vallejo RN Labs Only (lab tracking) Social History Tobacco Use Types Packs/Day Years Used Date Smoking Tobacco: Never Smokeless Tobacco: Never Sex and Gender Information Value Date Recorded Sex Assigned at Not on file Gender Identity Not on file Sexual Orientation Not on file documented as of this encounter Miscellaneous Notes * Addendum Note - Brionna Vallejo RN - 07/20/2019 9:26 AM ESTAddended by: BRIONNA VALLEJO on: 07/20/2019 09:26 AM Modules accepted: Orders * Telephone Encounter - Brionna Vallejo RN - 07/19/2019 1:44 PM EST LAB TRACKING Brayan L Ella [id number] DIAGNOSIS: Thymic cancer LABS ORDERED: cbc diff, cmp, mag MEDICATIONS: Sutent 25 mg PO daily for 14 days with 7 days off. Standing transfusion orders from PCP at [facility] Assessment/Plan: Labs sent to Dr. Schneider. Pt started this cycle of sutent on TuesdayJuly 15. Pt will get two units of blood at [facility] tomorrow. Pt will stop sutent today per Dr. Schneider. She will have labs again on in [place] when she sees Dr. Schneider. She a;tariq with plan. Results for BRAYAN PIERRE ( ) as of 07/19/2019 13:49 Ref. Range 04/19/2019 00:00 04/26/2019 00:00 05/03/2019 00:00 05/11/2019 00:00 07/19/2019 00:00 WBC Unknown 3.0 2.5 2.8 2.8 1.8 Hemoglobin Unknown 9.2 9.1 9.5 9.1 6.9 Hematocrit Unknown 26.7 26.3 27.3 27.0 20.8 Platelets Unknown 93 [address] % Unknown 3.8 Neutr Abs (ANC) Unknown 1.89 1.32 1.59 1.62 1.1 Sodium Unknown 136 Potassium Unknown 3.7 3.9 3.7 BUN Unknown 9 12 12 14 Creatinine Unknown 0.60 0.70 0.60 0.6 0.6 Calcium Unknown 9.5 9.5 9.6 Magnesium Latest Units: mg/dL 1.3 1.1 1.2 1.5 (A) 1.4 Total Bilirubin Unknown 0.7 Alk Phos Unknown 54 52 51 AST Unknown 26 32 35 ALT Unknown 18 22 22 Ferritin Unknown >1,000 Folate Lvl Unknown >17 Iron Unknown 135 TIBC Unknown 237 Iron Saturation Unknown 57 Vitamin B-12 Unknown 544 documented in this encounter Plan of Treatment Upcoming Encounters Date Type Department Care Team (Late st Contact Info) Description 02/24/2024 9:00 AM EDT Office Visit Hematology/Oncology at [address] [phone] Shon Schneider MD [facility] [place] [address] Ciara Pitts APRN [address] [place] [address] DR HEMATOLOGY [place] [address] 02/24/2024 9:30 AM EDT Infusion Hematology Oncology at [address] [phone] 03/02/2024 11:00 AM EDT Office Visit Hematology/Oncology at [address] [phone] Shon Schneider MD [facility] [address] [address] HEMATOLOGY AND ONCOLOGY [place], [place] [address] 03/02/2024 12:30 PM EDT Infusion Hematology Oncology at [address] [phone] 03/09/2024 10:00 AM EDT Office Visit Hematology/Oncology at [address] [phone] Shon Schneider MD [facility] [place] [address] [address] HEMATOLOGY AND ONCOLOGY [place], [place] [address] 03/09/2024 10:30 AM EDT Infusion Hematology Oncology at [address] [phone] documented as of this encounter Goals Goal [...] Priority Date/Time Associated Diagnosis Comments LAB SCAN 02/24/2022 12:00 AM EDT CBC (WITH DIFF) Routine 07/19/2019 CALCIUM Routine 07/19/2019 documented in this encounter Results * SCAN DOC: LAB (02/24/2022 12:00 AM EDT) Narrative 02/24/2022 12:00 AM EDT Ordered by an unspecified provider. Scanning Provider MEDIA MGR SCAN EXT O RDR/RSLT * Magnesium (07/31/2019 8:00 AM EST) Magnesium 0.70 0.69 - 1.07 mmol/L [facility] Blood specimen (specimen) 07/31/2019 8:00 AM EST 07/31/2019 8:01 AM EST Narrative Resulting Agency Comment Spec In Lab Shon Schneider MD CHEMISTRY ORDERABLES [facility] [place] [address] * (ABNORMAL) Comprehensive metabolic panel (non-fasting) (07/31/2019 8:00 AM EST) Glucose 117 65 - 199 mg/dL [facility] Comment:Diabetes: >=200 mg/d L plus symptoms Blood Urea Nitrogen 10 8 - 18 mg/dL [facility] Creatinine 0.58(L) 0.70 - 1.20 mg/dL [facility] Sodium 138 135 - 145 mmol/L [facility] Potassium 3.8 3.5 - 5.0 mmol/L [facility] Comment: Please note: ??Patients with WBC >100,000 may have falsely elevated Potassium levels. ??For accurate Potassium quantification in these patients send serum separator tube (gold top) for subsequent determinations. ??Contact the Clinical Chemistry Laboratory if there are any questions. Chloride 99 98 - 107 mmol/L [facility] Carbon Dioxide 27 22 - 31 mmol/L [facility] Anion Gap 12 5 - 15 mmol/L [facility] Calcium 9.6 8.5 - 10.5 mg/dL [facility] Protein, Total 7.5 6.1 - 8.0 gm/dL [facility] Albumin 4.1 3.2 - 5.2 gm/dL [facility] Aspartate Aminotransferase 14 0 - 30 unit/L [facility] Alanine Aminotransferase 16 0 - 30 unit/L [facility] Alkaline Phosphatase 43 35 - 105 unit/L [facility] Bilirubin, Total 0.5 0.2 - 1.3 mg/dL [facility] Est Glomerular Filtration Rate 99 >=60 mL/min/1. 73 m?? [facility] Comment: The eGFR was calculated using the CKD-EPI equation. As with all creatinine based estimates of kidney function, eGFR values calculated with the CKD-EPI equation are not accurate in patients with acute kidney failure, extremes of body mass or the acutely ill. [email or web address] TULSAnkf eGFR 114 >=60 mL/min/1. 73 m?? [facility] Comment: The eGFR was calculated using the CKD-EPI equation. As with all creatinine based estimates of kidney function, eGFR values calculated with the CKD-EPI equation are not accurate in patients with acute kidney failure, extremes of body mass or the acutely ill. [email or web address] Blood specimen (specimen) 07/31/2019 8:00 AM EST 07/31/2019 8:01 AM EST Narrative Resulting Agency Comment Spec In Lab Shon Schneider MD CHEMISTRY ORDERABLES [facility] [place] [address] * Calcium (07/19/2019) Calcium 9.6 Potassium 3.7 Blood specimen (specimen) 07/19/2019 Historical Provider CHEMISTRY ORDERAB LES * CBC (with Diff) (07/19/2019) White Blood Cell 1.8 Hemoglobin 6.9 Hematocrit 20.8 Platelet 88 Neutrophil Absolute (ANC) - Automated 1.1 Reticulocyte % 3.8 Sodium 136 Creatinine 0.6 Magnesium 1.4 mg/dL Ferritin >1,000 Vitamin B12 544 Folate >17 Iron 135 TIBC 237 Iron Saturation 57 Blood specimen (specimen) 07/19/2019 Historical Provider HEMATOLOGY ORDERA BLES documented in this encounter Visit Diagnoses Diagnosis 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 documented in this encounter Care Teams Clinical Research Nurse Relationship Specialty Start Date End Date Jerzy Vidal MD [address] [place] [address] [place] [address] PCP - [facility] Medicine 12/04/18 documented as of this encounter
--- OUTSIDE RECORDS SUMMARY | 2024-02-24 01:23 | XMS_ITS | Encounter Summary ---
Author Organization [facility] [place] [address] Care Team Providers Care Mold Operator Name Role Phone Jerzy Vidal MD Primary Care Provider [phone] Reason for Visit * Reason Onset Date Comments Labs Only 04/20/2019 Lab Tracking Encounter Details Date Type Department Care Team (Late st Contact Info) Description 04/20/2019 Telephone Hematology/Oncology at [address] [phone] Ute Chacon, RN Labs Only (Lab Tracking) Social History Tobacco Use Types Packs/Day Years Used Date Smoking Tobacco: Never Smokeless Tobacco: Never Sex and Gender Information Value Date Recorded Sex Assigned at Not on file Gender Identity Not on file Sexual Orientation Not on file documented as of this encounter Miscellaneous Notes * Telephone Encounter - Ute Chacon RN - 04/20/2019 8:18 AM EST LAB TRACKING Brayan Pierre [id number] DIAGNOSIS: Thymic cancer LABS ORDERED: cbc diff, cmp, mag MEDICATIONS: Sutent 25 mg PO daily for 14 days with 7 days off. Standing transfusion orders from PCP at [facility] Assessment/Plan: Labs reviewed by Dr. Schneider. She is instructed to begin next cycle. She says she will begin Tuesday04/22/19. Labs the week of the . She states she feels well. Results for BRAYAN PIERRE ( ) as of 04/20/2019 08:15 Ref. Range 03/16/2019 00:00 03/22/2019 00:00 04/04/2019 08:52 04/04/2019 10:29 04/19/2019 00:00 WBC Unknown 2.6 3.4 2.6 (L) 3.0 RBC Latest Ref Range: 4.00 - 5.21 x10(6)/mcL 2.31 (L) Hemoglobin Unknown 10.6 10.7 9.4 (L) 9.2 Hematocrit Unknown 30.9 30.5 27.4 (L) 26.7 MCV Latest Ref Range: 82.6 - 94.4 fL 118.6 (H) MCH Latest Ref Range: 27.1 - 32.0 pg 40.7 (H) MCHC Latest Ref Range: 31.7 - 35.0 gm/dL 34.3 RDWSD Latest Ref Range: 37.0 - 46.0 fL 72.3 (H) RDWCV Latest Ref Range: 11.5 - 14.1 % 16.6 (H) Platelets Unknown 88 90 81 (L) 93 MPV Latest Ref Range: 7.6 - 12.9 fL 10.6 nRBC % Auto Latest Units: % 0.0 nRBC Abs Auto Latest Ref Range: 0.000 - 0.000 x10(3)/mcL 0.000 Neutr Abs (ANC) Unknown 1.53 1.98 1.40 (L) 1.89 Neutrophils % Latest Units: % 52.8 Immature [...] Latest Ref Range: 135 - 145 mmol/L 138 139 Potassium Latest Ref Range: 3.5 - 5.0 mmol/L 3.8 4.0 4.0 Chloride Latest Ref Range: 98 - 107 mmol/L 99 CO2 Latest Ref Range: 22 - 31 mmol/L 29 Anion Gap Latest Ref Range: 5 - 15 mmol/L 11 BUN Unknown 13 11 14 9 Creatinine Unknown 0.60 0.60 0.84 0.60 eGFR Latest Ref Range: >=60 mL/min/1.73 m?? 75 eGFR Latest Ref Range: >=60 mL/min/1.73 m?? 87 Glucose Lvl Latest Ref Range: 65 - 199 mg/dL 109 Calcium Unknown 9.8 9.7 9.9 9.5 Magnesium Latest Units: mg/dL 1.2 1.4 0.59 (L) 1.3 Total Protein Latest Ref Range: 6.1 - 8.0 gm/dL 7.2 Albumin Latest Ref Range: 3.2 - 5.2 gm/dL 4.2 Total Bilirubin Latest Ref Range: 0.2 - 1.3 mg/dL 0.7 0.7 0.7 Alk Phos Unknown 55 58 44 54 AST Unknown 31 38 23 26 ALT Unknown 20 28 18 18 Free T4 Latest Ref Range: 0.93 - 1.70 ng/dL 1.10 TSH Latest Ref Range: 0.27 - 4.20 mcIU/mL 4.33 (H) documented in this encounter Plan of Treatment Upcoming Encounters Date Type Department Care Team (Late st Contact Info) Description 02/24/2024 9:00 AM EDT Office Visit Hematology/Oncology at [address] [phone] Shon Schneider MD [facility] [place] [address] Ciara Pitts APRN [address] [place] [address] [place] [address] 02/24/2024 9:30 AM EDT Infusion Hematology Oncology at [address] [phone] 03/02/2024 11:00 AM EDT Office Visit Hematology/Oncology at [address] [phone] Shon Schneider MD [facility] [place] [address] [address] [place] [address] 03/02/2024 12:30 PM EDT Infusion Hematology Oncology at [address] [phone] 03/09/2024 10:00 AM EDT Office Visit Hematology/Oncology at [address] [phone] Shon Schneider MD [facility] [place] [address] [address] HEMATOLOGY AND ONCOLOGY [place], [place] [address] 03/09/2024 10:30 AM EDT Infusion Hematology Oncology at [address] [phone] documented as of this encounter Goals Goal [...] Associated Diagnosis Comments CBC (WITH DIFF) Routine 04/19/2019 COMPREHENSIVE METABOLIC PANEL Routine 04/19/2019 documented in this encounter Results * Comprehensive metabolic panel (non-fasting) (04/19/2019) Blood Urea Nitrogen 9 Creatinine 0.60 Calcium 9.5 Alkaline Phosphatase 54 Aspartate Aminotransferase 26 Alanine Aminotransferase 18 Magnesium 1.3 mg/dL Blood specimen (specimen) 04/19/2019 Shon Schneider MD CHEMISTRY ORDERABLES * CBC (with Diff) (04/19/2019) White Blood Cell 3.0 Hemoglobin 9.2 Hematocrit 26.7 Platelet 93 Neutrophil Absolute (ANC) - Automated 1.89 Blood specimen (specimen) 04/19/2019 Shon Schneider MD HEMATOLOGY ORDERABLE S documented in this encounter Visit Diagnoses Not on filedocumented in this encounter Care Teams Mold Operator Relationship Specialty Start Date End Date Jerzy Vidal MD [address] [place] [address] [place] [address] PCP - [facility] Medicine 12/04/18 documented as of this encounter
--- OUTSIDE RECORDS SUMMARY | 2024-02-24 01:23 | XMS_ITS | Encounter Summary ---
Author Organization [facility] Address [facility] [place] [address] Care Team Providers Care Mechanical Engineering Intern Name Role Phone Jerzy Vidal MD Primary Care Provider Reason for Referral * Diagnostic Test (Routine) - Specialty Diagnoses / Procedures Referred By Franklyn del rio Referred To Contact Diagnoses Thymic carcinoma Chronic atrial fibrillation Procedures Echocardiogram South/External Shon Schneider MD [facility] [place] [address] Referral ID Status Reason Start Date Expiration Date Visits Requested Visits Authorized [id number] Specialty Service Requested 06/09/2018 12/06/2018 1 1 Encounter Details Date Type Department Care Team (Latest Contact Info) Description 04/04/2019 8:01 AM EDT - 04/04/2019 11:59 PM EDT Hospital Encounter Hematology [place] [phone] Hypomagnesemia; Other fatigue; Thymic carcinoma; Chronic atrial fibrillation Discharge Disposition: Home Social History Tobacco Use [...] Fibrillation 11/07/2022 documented as of this encounter Progress Notes * Yolette Murillo RN - 04/04/2019 8:55 AM EDT Patient Name: Monica Jaramillo Patient Age: 63 y.o. Birthdate: 1955 Admit date: 04/04/2019 Attending Physician: No att. providers found Access visit. See MAR and/or flowsheet. documented in this encounter Plan of Treatment Upcoming Encounters Date Type Department Care Team (Late st Contact Info) Description 02/24/2024 9:00 AM EDT Office Visit Hematology/Oncology at [address] [phone] Shon Schneider MD [facility] [address] [place] [address] [address] HEMATOLOGY AND ONCOLOGY [place], [place] [address] 02/24/2024 9:30 AM EDT Infusion Hematology Oncology at [address] [phone] 03/02/2024 11:00 AM EDT Office Visit Hematology/Oncology at [address] [phone] Shon Schneider MD [facility] [place] [address] [address] H[place]OLOGY [place] [address] 03/02/2024 12:30 PM EDT Infusion Hematology Oncology at [address] [phone] 03/09/2024 10:00 AM EDT Office Visit Hematology/Oncology at [address] [phone] Shon Schneider MD [facility] [place] [address] Ciara Pitts APRN [address] [place] [address] DR HEMATOLOGY AND ONCOLOGY [place], [place] [phone] 03/09/2024 10:30 AM EDT Infusion Hematology Oncology at [address] [phone] Scheduled Orders Name Type Priority Associated Diagnoses Order Schedule Magnesium Lab Routine Hypomagnesemia 1 Occurrences starting 04/04/2019 until 04/04/2019 Echocardiogram South/External Echocardiography Routine Thymic carcinoma Chronic atrial fibrillation 1 Occurrences starting 04/04/2019 until 04/04/2019 documented as of this encounter Goals Goal Patient Goal Type Associated Problems Recent Progress Patient-Stated? Author DH Home Medication Compliance and Understanding Patient Facing Action Plan On track( 019 3:22 PM EST) No Ivana Vanegas, [facility] Note: Remain 95% or better adherent to chemotherapy without severe side effects as assessed by days supply and patient reported adverse events at each refill documented as of this encounter Procedures Procedure Name Priority Date/Time Associated Diagnosis Comments SCAN, PERIPHERAL BLOOD Routine 9 8:52 AM EDT HEMOGRAM Routine 04/04/2019 8:52 AM EDT Thymic carcinoma DIFFERENTIAL, AUTOMATED Routine 04/04/2019 8:52 AM EDT Thymic carcinoma HC CBC,PLT & AUTO DIFF Routine 9 8:52 AM EDT Thymic carcinoma HC THYROID STIMULATING HORMONE, SERUM Routine 04/04/2019 8:52 AM EDT Other fatigue HC FREE THYROXINE (T4) Routine 9 8:52 AM EDT Other fatigue MAGNESIUM Routine 04/04/2019 8:52 AM EDT COMPREHENSIVE METABOLIC PANEL Routine 04/04/2019 8:52 AM EDT Thymic carcinoma documented in this encounter Results * (ABNORMAL) Magnesium (04/04/2019 8:52 AM EDT) [facility] Magnesium 0.59(L) 0.69 - 1.07 mmol/L [facility] Blood specimen (specimen) Venous Draw / Unknown 04/04/2019 8:52 AM EDT 04/04/2019 9:05 AM EDT Narrative Resulting Agency Comment Spec In Lab Shon Schneider MD CHEMISTRY ORDERABLES Performing Organization Address City/[facility]/ZIP Co de Phone Number [facility] [place] [address] * Scan, Peripheral Blood (04/04/2019 8:52 AM EDT) [facility] Plat estimate Decreased [facility] RBC Morphology Abnormal [facility] Macrocyte 6-10 /HPF [facility] Blood specimen (specimen) 04/04/2019 8:52 AM EDT 04/04/2019 9:05 AM EDT Narrative Resulting Agency Comment Spec In Lab Shon Schneider MD HEMATOLOGY ORDERABLE S Performing Organization Address [facility]/ZIP Co de Phone Number [facility] [place] [address] * (ABNORMAL) Differential, Automated (04/04/2019 8:52 AM EDT) [facility] Neutrophil % 52.8 % [facility] Neutrophil Absolute 1.40(L) 1.70 - 6.10 x10(3)/mc L [facility] Lymph % 37.7 % [facility] Lymphocytes Abs 1.0 0.9 - 3.2 x10(3)/mc L [facility] Monocyte % 7.2 % [facility] Monocyte Abs 0.2(L) 0.3 - 0.9 x10(3)/mc L [facility] Eos % 1.5 % [facility] Eosinophils Abs 0.0 0.0 - 0.4 x10(3)/[facility] Basophil % 0.4 % [facility] Baso Absolute 0.0 0.0 - 0.1 x10(3)/[facility] Immature Gran % 0.40 % [facility] Comment: Immature granulocytes(IG's)percentage and absolute count will include metamyelocytes, myelocytes, and promyelocytes. Blood smears from CBCs yielding IG's will be scanned manually for concordance. If this scan disagrees with the automated IG or if promyelocytes are noted, a manual differential will be performed. Immature Gran Absolute 0.01 0.00 - 0.04 x10(3)/[facility] Blood specimen (specimen) 04/04/2019 8:52 AM EDT 04/04/2019 9:02 AM EDT Narrative Resulting Agency Comment Spec In Lab Shon Schneider MD HEMATOLOGY ORDERABLE S [facility] [place] [address] * (ABNORMAL) Hemogram (04/04/2019 8:52 AM EDT) White Blood Cell 2.6(L) 4.0 - 9.5 x10(3)/[facility] Red Blood Cell 2.31(L) 4.00 - 5.21 x10(6)/[facility] Hemoglobin 9.4(L) 11.7 - 15.5 gm/dL [facility] Hematocrit 27.4(L) 35.7 - 45.8 % [facility] Mean Cell Volume 118.6(H) 82.6 - 94.[address] [facility] Mean Cell Hemoglobin 40.7(H) 27.1 - 32.[address] [facility] Mean Cell Hemoglobin Concentration 34.3 31.7 - 35.0 gm/dL [facility] Platelet 81(L) 145 - 357 x10(3)/mc L [facility] RDW Standard Deviation 72.3(H) 37.0 - 46.[address] [facility] RDW coefficient of variation 16.6(H) 11.5 - 14.1 % [facility] Mean Platelet Volume 10.6 7.6 - 12.[address] [facility] NRBC% auto 0.0 % [facility] NRBC Absolute 0.000 0.000 - 0.000 x10(3)/mc L [facility] Blood specimen (specimen) 04/04/2019 8:52 AM EDT 04/04/2019 9:02 AM EDT Narrative Resulting Agency Comment Spec In Lab Shon Schneider MD HEMATOLOGY ORDERABLE S [facility] [place] [address] * Comprehensive metabolic panel (non-fasting) (04/04/2019 8:52 AM EDT) Glucose 109 65 - 199 mg/dL [facility] Comment:Diabetes: >=200 mg/d L plus symptoms Blood Urea Nitrogen 14 8 - 18 mg/dL [facility] Creatinine 0.84 0.70 - 1.20 mg/dL [facility] Sodium 139 135 - 145 mmol/L [facility] Potassium 4.0 3.5 - 5.0 mmol/L [facility] Comment: Please note: ??Patients with WBC >100,000 may have falsely elevated Potassium levels. ??For accurate Potassium quantification in these patients send serum separator tube (gold top) for subsequent determinations. ??Contact the Clinical Chemistry Laboratory if there are any questions. Chloride 99 98 - 107 mmol/L [facility] Carbon Dioxide 29 22 - 31 mmol/L [facility] Anion Gap 11 5 - 15 mmol/L [facility] Calcium 9.9 8.5 - 10.5 mg/dL [facility] Protein, Total 7.2 6.1 - 8.0 gm/dL [facility] Albumin 4.2 3.2 - 5.2 gm/dL [facility] Aspartate Aminotransferase 23 0 - 30 unit/L [facility] Alanine Aminotransferase 18 0 - 30 unit/L [facility] Alkaline Phosphatase 44 35 - 105 unit/L [facility] Bilirubin, Total 0.7 0.2 - 1.3 mg/dL [facility] Est Glomerular Filtration Rate 75 >=60 mL/min/1. 73 m?? [facility] Comment: The eGFR was calculated using the CKD-EPI equation. As with all creatinine based estimates of kidney function, eGFR values calculated with the CKD-EPI equation are not accurate in patients with acute kidney failure, extremes of body mass or the acutely ill. http://[employer]/[facility] eGFR 87 >=60 mL/min/1. 73 m?? [facility] Comment: The eGFR was calculated using the CKD-EPI equation. As with all creatinine based estimates of kidney function, eGFR values calculated with the CKD-EPI equation are not accurate in patients with acute kidney failure, extremes of body mass or the acutely ill. http://[employer]/[facility] Blood specimen (specimen) 04/04/2019 8:52 AM EDT 04/04/2019 9:02 AM EDT Narrative Resulting Agency Comment Spec In Lab Shon Schneider MD CHEMISTRY ORDERABLES [facility] [place] [address] * T4, free (04/04/2019 8:52 AM EDT) Free T4 1.10 0.93 - 1.70 ng/dL [facility] Blood specimen (specimen) 04/04/2019 8:52 AM EDT 04/04/2019 9:02 AM EDT Narrative Resulting Agency Comment Spec In Lab Shon Schneider MD CHEMISTRY ORDERABLES Performing Organization Address City/[facility]/ZIP Co de Phone Number [facility] [place] [address] * (ABNORMAL) TSH (04/04/2019 8:52 AM EDT) Thyroid Stimulating Hormone 4.33(H) 0.27 - 4.20 mcIU/mL [facility] Blood specimen (specimen) 04/04/2019 8:52 AM EDT 04/04/2019 9:02 AM EDT Narrative Resulting Agency Comment Spec In Lab Shon Schneider MD CHEMISTRY ORDERABLES Performing Organization Address [facility] Co de Phone Number [facility] [place] [address] documented in this encounter Visit Diagnoses Diagnosis Hypomagnesemia Disorders of magnesium metabolism Other fatigue Thymic carcinoma Malignant neoplasm of thymus Chronic atrial fibrillation Atrial fibrillation Thymic carcinoma Malignant neoplasm of thymus documented in this encounter Administered Medications Inactive Administered Medications - up to 3 most recent administrations Medication Order MAR Action Action Date Dose Rate Site sodium chloride 0.9 % (flush) flush 20 mL 20 mL, Intravenous, EVERY 1 MIN PRN, Starting on Tue04/04/19 at 0832, Until Ivette 04/05/19 at 0435, Automatic Profile Sander Operator, Routine Given 04/04/2019 8:54 AM EDT 20 mLs documented in this encounter Care Teams Mechanical Engineering Intern Relationship Specialty Start Date End Date Jerzy Vidal MD [address] [place] [address] [place] [address] PCP - General [facility] Medicine 12/04/18 documented as of this encounter
--- OUTSIDE RECORDS SUMMARY | 2024-02-24 01:23 | XMS_ITS | Encounter Summary ---
Author Organization [facility] Address [facility] [place] [address] Care Team Providers Care Patient Resource Coordinator Name Role Phone Jerzy Vidal MD Primary Care Provider [phone] Encounter Details Date Type Department Care Team (Latest Contact Info) Description 08/17/2019 1:30 PM EST Office Visit Hematology/Oncology at [address] [phone] Shon Schneider MD [facility] [place] [address] Nadeen Srivastava, RN Thymic carcinoma; Acquired hypothyroidism Social History Tobacco Use Types Packs/Day Years Used Date Smoking Tobacco: Never Smokeless Tobacco: Never Sex and Gender Information Value Date Recorded Sex Assigned at Not on file Gender Identity Not on file Sexual Orientation Not on file documented as of this encounter Last Filed Vital Signs Vital Sign Reading Time Taken Comments Blood Pressure 137/75 08/17/2019 1:36 PM EST Pulse 76 08/17/2019 1:36 PM EST Temperature 37.1 ??C (98.8 ??F) 08/17/2019 1:36 PM ES T Respiratory Rate 18 08/17/2019 1:36 PM EST Oxygen Saturation 100% 08/17/2019 1:36 PM EST Inhaled Oxygen Concentration - - Weight 126.7 kg (279 lb 6.4 oz) 08/17/2019 1:36 PM EST Height - - Body Mass Index 40.91 07/31/2019 12:20 PM EST documented in this encounter Progress Notes * Shon Schneider MD - 08/17/2019 9:30 AM EST Subjective: Patient ID: Monica Jaramillo [...] pleural effusion with compression atelectasis. transferred to [facility] for further evaluation and workup [...] - CONSULT SLIDES FROM [facility]; [place], [place]: A. MEDIASTINUM, MASS, BIOPSY ([id number]; 03/22/2017): ? 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 ?Immunohistochemistry performed at the outside institution and reviewed at [facility] demonstrates the following staining profile in lesional cells: ? Positive - AE1/AE3, p40, PAX8, CD117, CD5(multifocal), CK7(scattered cells), synaptophysin, chromogranin ? Negative - CK20, TTF-1, GATA3, CD34 ? The immunohistochemical profile supports the above diagnosis. ? Ki67 (MIB-1) proliferation index performed at the referring institution and reviewed at [facility] is focally up to ~30%. NOTE: While diffuse synaptophysin and chromogranin expression is unusual for conventional thymic carcinoma, the overall histomorphology and immunophenotype is most in keeping with THYMIC SQUAMOUS CARCINOMA.?The extent of PAX8 and CD117 staining would be unusual for Nut carcinoma. B. MEDIASTINUM, ANTERIOR, 4.5 CM, ULTRASOUND GUIDED FINED NEEDLE ASPIRATION ([id number]; 03/22/17): The cytologic preparations were not reviewed [...] Second opinion with Dr. Roddy Vega in [place]. They reviewed the pathology and concurred they [...] breast mass, stable left pericardial lymph node. 2. H/o atrial fibrillation 3. HTN 4. [...] LV filling pressures. (LVEF 60-65%). HPI Ms. Ella is seen in f/u thymic carcinoma. The history is summarized above. On presentation today, she is accompanied by her . She continues to feel well with no particular complaints. She is eating well and her weight is stable. Her energy and exercise tolerance are good. No dyspnea. No chest pain. Her bowels are regular. Soc Hx: , lives in [place], [place] Tob - Never Etoh - rare [...] is normal. Vitals reviewed. Labs: WBC/ANC - 4.06/2849, Hgb/Hct - 8.1/25.3, Plts [...] mg/day, 2 weeks followed by one w kwethluk off, with cycles repeated every three weeks. [...] and the results are under scanned documents. We will proceed with therapy today and see her again in three weeks. We will recheck labs, in particular the cbc and magnesium, next week. The TSH and T4 are WNL. Will have her continue the same dose of synthroid and recheck in three weeks. 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 She had an elevated fractional excretion of magnesiumand therefore in 01/2019 was started on amiloride. documented in this encounter Plan of Treatment Upcoming Encounters Date Type Department Care Team (Late st Contact Info) Description 02/24/2024 9:00 AM EDT Office Visit Hematology/Oncology at [address] [phone] Shon Schneider MD [facility] [place] [address] HEMATOLOGY AND ONCOLOGY [place], [place] [phone] 02/24/2024 9:30 AM EDT Infusion Hematology Oncology at [address] [phone] 03/02/2024 11:00 AM EDT Office Visit Hematology/Oncology at [address] [phone] Shon Schneider MD [facility] [place] [address] [address] HEMATOLOGY AND ONCOLOGY [place], [place] [phone] 03/02/2024 12:30 PM EDT Infusion Hematology Oncology at [address] [phone] 03/09/2024 10:00 AM EDT Office Visit Hematology/Oncology at [address] [phone] Shon Schneider MD [facility] [place] [address] [address] HEMATOLOGY AND ONCOLOGY [place], [place] [phone] 03/09/2024 10:30 AM EDT Infusion Hematology Oncology at [address] [phone] documented as of this encounter Goals Goal [...] thymus documented in this encounter Care Teams Patient Resource Coordinator Relationship Specialty Start Date End Date Jerzy Vidal MD [address] [place] [address] [place] [address] PCP - [facility] Medicine 12/04/18 documented as of this encounter
--- OUTSIDE RECORDS SUMMARY | 2024-02-24 01:23 | XMS_ITS | Encounter Summary ---
Author Organization [facility] Address [facility] [place] [address] Care Team Providers Care Human Machine Interface Engineer Name Role Phone Jerzy Vidal MD Primary Care Provider [phone] Encounter Details Date Type Department Care Team (Late st Contact Info) Description 04/04/2019 1:15 PM EDT Office Visit Hematology [place] [address] Shon Schneider MD [facility] [place] [address] Thymic carcinoma; Hypomagnesemia; Hypothyroidism (acquired) Social History Tobacco Use Types Packs/Day Years Used Date Smoking Tobacco: Never Smokeless Tobacco: Never Sex and Gender Information Value Date Recorded Sex Assigned at Not on file Gender Identity Not on file Sexual Orientation Not on file documented as of this encounter Last Filed Vital Signs Vital Sign Reading Time Taken Comments Blood Pressure 150/91 04/04/2019 12:58 PM EDT Pulse 87 04/04/2019 12:58 PM EDT Temperature 36.3 ??C (97.3 ??F) 04/04/2019 1 2:58 PM EDT Respiratory Rate 16 04/04/2019 12:5 8 PM EDT Oxygen Saturation 100% 04/04/2019 12: 58 PM EDT Inhaled Oxygen Concentration - - Weight 123.7 kg (272 lb 9.6 oz) 019 12:58 PM EDT Height 175.5 cm (5' 9.09) 04/04/2019 1 2:58 PM EDT Body Mass Index 40.15 04/04/2019 12:58 PM EDT documented in this encounter Progress Notes * Shon Schneider MD - 04/04/2019 1:15 PM EDT Subjective: Patient ID: Monica Jaramillo [...] CONSULT SLIDES FROM [facility]; [place], [place]: A. MEDIASTINUM, MASS, BIOPSY ([id number]; 03/22/2017): ? 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 ?Immunohistochemistry performed at the outside institution and reviewed at [facility] demonstrates the following staining profile in lesional cells: ? Positive - AE1/AE3, p40, PAX8, CD117, CD5(multifocal), CK7(scattered cells), synaptophysin, chromogranin ? Negative - CK20, TTF-1, GATA3, CD34 ? The immunohistochemical profile supports the above diagnosis. ? Ki67 (MIB-1) proliferation index performed at the referring institution and reviewed at [facility] is focally up to ~30%. NOTE: While diffuse synaptophysin and chromogranin expression is unusual for conventional thymic carcinoma, the overall histomorphology and immunophenotype is most in keeping with THYMIC SQUAMOUS CARCINOMA.?The extent of PAX8 and CD117 staining would be unusual for Nut carcinoma. B. MEDIASTINUM, ANTERIOR, 4.5 CM, ULTRASOUND GUIDED FINED NEEDLE ASPIRATION ([id number]; 03/22/17): The cytologic preparations were not reviewed [...] Second opinion with Dr. Roddy Vega in [place]. They reviewed the pathology and concurred they [...] she is accompanied by her . She says she feels great and has had a good summer. She has been tolerating the sunitinib. Her energy and exercise tolerance are good. No dyspnea. She has been taking amiloride for the hypomagnesemia and is also taking magnesium. Her BP at [facility] has been 125-135/68-74. Her bowels are regular for the most part, but she has occasional loose stools. 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 Fam Hx: No h/o cancer Review of Systems All other systems reviewed and are negative. Objective: Physical Exam Constitutional: She is oriented to person, place, and time. She appears well- developed and well-nourished. No distress. HENT: Head: Normocephalic and atraumatic. Eyes: No scleral icterus. Cardiovascular: Normal rate. Pulmonary/Chest: No respiratory distress. Abdominal: She exhibits no distension. Musculoskeletal: She exhibits no edema. Neurological: She is alert and oriented to person, place, and time. Coordination normal. Skin: Skin is warm and dry. No rash noted. Psychiatric: She has a normal mood and affect. Her behavior is normal. Vitals reviewed. Recent Results (from the past 24 hour(s)) TSH Result Value Ref Range TSH 4.33 (H) 0.27 - 4.20 mcIU/mL T4, free Result Value Ref Range Free T4 1.10 0.93 - 1.70 ng/dL Comprehensive metabolic panel (non-fasting) Result Value Ref Range Glucose Lvl 109 65 - 199 mg/dL BUN 14 8 - 18 mg/dL Creatinine 0.84 0.70 - 1.20 mg/dL Sodium 139 135 - 145 mmol/L Potassium 4.0 3.5 - 5.0 mmol/L Chloride 99 98 - 107 mmol/L CO2 29 22 - 31 mmol/L Anion Gap 11 5 - 15 mmol/L Calcium 9.9 8.5 - 10.5 mg/dL Total Protein 7.2 6.1 - 8.0 gm/dL Albumin 4.2 3.2 - 5.2 gm/dL AST 23 0 - 30 unit/L ALT 18 0 - 30 unit/L Alk Phos 44 35 - 105 unit/L Total Bilirubin 0.7 0.2 - 1.3 mg/dL eGFR 75 >=60 mL/min/1.73 m?? eGFR 87 >=60 mL/min/1.73 m?? Hemogram Result Value Ref Range WBC 2.6 (L) 4.0 - 9.5 x10(3)/mcL RBC 2.31 (L) 4.00 - 5.21 x10(6)/mcL Hemoglobin 9.4 (L) 11.7 - 15.5 gm/dL Hematocrit 27.4 (L) 35.7 - 45.8 % MCV 118.6 (H) 82.6 - 94.4 fL MCH 40.7 (H) 27.1 - 32.0 pg MCHC 34.3 31.7 - 35.0 gm/dL Platelets 81 (L) 145 - 357 x10(3)/mcL RDWSD 72.3 (H) 37.0 - 46.0 fL RDWCV 16.6 (H) 11.5 - 14.1 % MPV 10.6 7.6 - 12.9 fL nRBC % Auto 0.0 % nRBC Abs Auto 0.000 0.000 - 0.000 x10(3)/mcL Differential, Automated Result Value Ref Range Neutrophils % 52.8 % Neutr Abs (ANC) 1.40 (L) 1.70 - 6.10 x10(3)/mcL Lymphocytes % 37.7 % Lymphocytes Abs 1.0 0.9 - 3.2 x10(3)/mcL Monocytes % 7.2 % Monocyte Abs 0.2 (L) 0.3 - 0.9 x10(3)/mcL Eosinophils % 1.5 % Eosinophils Abs 0.0 0.0 - 0.4 x10(3)/mcL Basophils % 0.4 % Basophils Abs 0.0 0.0 - 0.1 x10(3)/mcL Immature Gran % 0.40 % [place] Gran Abs 0.01 0.00 - 0.04 x10(3)/mcL Scan, Peripheral Blood Result Value Ref Range Plat Estimate Decreased RBC Morphology Abnormal Macrocytes 6-10 /HPF CT personally reviewed, report above. Assessment and [...] trying. I spoke with Dr. Vega at [facility] [...] mg/day, 2 weeks followed by one w [place] off, with cycles repeated every three weeks. [...] schedule well. The restaging CT scan done today, 04/04/19, shows increased size of a now [address] and is otherwise stable. We reviewed the scans. The change in the node is relatively small. We plan to continue the current therapy and repeat the CT in 2-3 months. The TSH is a little elevated but the free T4 is WNL. Will have her continue the same dose of synthroid and recheck this in 6 weeks. 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 She had an elevated fractional excretion of magnesium and therefore in 01/2019 was started on amiloride. The magnesium is low but stable and we will continue to monitor. She will complete this cycle of therapy. The next willbe scheduled to start on 04/20. She will continue to have weekly labs and we will call her prior to starting the cycle on 04/20 and will see her three weeks after that. Foundation One testing. Per the report, there [...] AM EDT Office Visit Hematology/Oncology at [address] [phone] Shon Schneider MD [facility] [place] [address] Ciara Pitts APRN [address] [place] [address] DR HEMATOLOGY [place] [address] 02/24/2024 9:30 AM EDT Infusion Hematology Oncology at [address] [phone] 03/02/2024 11:00 AM EDT Office Visit Hematology/Oncology at [address] [phone] Shon Schneider MD [facility] [address] [address] HEMATOLOGY AND ONCOLOGY [place], [place] [phone] 03/02/2024 12:30 PM EDT Infusion Hematology Oncology at [address] [phone] 03/09/2024 10:00 AM EDT Office Visit Hematology/Oncology at [address] [phone] Shon Schneider MD [facility] [place] [address] [address] HEMATOLOGY AND ONCOLOGY [place], [place] [phone] 03/09/2024 10:30 AM EDT Infusion Hematology Oncology at [address] [phone] documented as of this encounter Goals Goal [...] of thymus Hypomagnesemia Disorders of magnesium metabolism Hypothyroidism (acquired) Unspecified hypothyroidism Thymic carcinoma Malignant neoplasm of thymus documented in this encounter Care Teams Human Machine Interface Engineer Relationship Specialty Start Date End Date Jerzy Vidal MD [address] [place] [address] [place] [address] PCP - [facility] 12/04/18 documented as of this encounter
--- OUTSIDE RECORDS SUMMARY | 2024-02-24 01:23 | XMS_ITS | Encounter Summary ---
Author Organization [facility] [place] [address] Care Team Providers Care Journeyman Level Acoustic Analyst Name Role Phone Jerzy Vidal MD Primary Care Provider [phone] Encounter Details Date Type Department Care Team (Latest Contact Info) Description 07/31/2019 7:40 AM EST - 07/31/2019 11:59 PM [facility] Hospital Encounter [place]ology [place] [address] Macrocytic anemia; Thymic carcinoma Discharge Disposition: Home Social History [...] as of this encounter Progress Notes * Hattie Elise RN - 07/31/2019 7:59 AM EST Patient Name: Monica Jaramillo Patient Age: 64 y.o. Birthdate: 1955 Admit date: 07/31/2019 Attending Physician: No att. providers found Access visit. See MAR and/or flowsheet. documented in this encounter Plan of Treatment Upcoming Encounters Date Type Department Care Team (Late st Contact Info) Description 02/24/2024 9:00 AM EDT Office Visit Hematology/Oncology at [address] [phone] Shon Schneider MD [facility] [place] [address] [address] HEMATOLOGY AND ONCOLOGY [place], [place] [phone] 02/24/2024 9:30 AM EDT Infusion Hematology Oncology at [address] [phone] 03/02/2024 11:00 AM EDT Office Visit Hematology/Oncology at [address] [phone] Shon Schneider MD [facility] [place] [address] Ciara Pitts, [address] HEMATOLOGY AND ONCOLOGY [place], [place] [phone] 03/02/2024 12:30 PM EDT Infusion Hematology Oncology at [address] [phone] 03/09/2024 10:00 AM EDT Office Visit Hematology/Oncology at [address] [phone] Shon Schneider MD [facility] [place] [address] Ciara Pitts [address] HEMATOLOGY AND ONCOLOGY [place], [place] [phone] 03/09/2024 10:30 AM EDT Infusion Hematology Oncology at [address] [phone] Scheduled Orders Name Type Priority Associated Diagnoses Orde r Schedule CBC (with Diff) Lab Routine Macrocytic anemia 1 Occurrences starting 07/31/2019 until 07/31/2019 Reticulocyte Count Lab Routine Macrocytic anemia 1 Occurrences starting 07/31/2019 until 07/31/2019 Iron and TIBC Lab Routine Macrocytic anemia 1 Occurrences starting 07/31/2019 until 07/31/2019 Ferritin Lab Routine Macrocytic anemia 1 Occurrences starting 07/31/2019 until 07/31/2019 Vitamin B12 Lab Routine Macrocytic anemia 1 Occurrences starting 07/31/2019 until 07/31/2019 Folate, serum Lab Routine Macrocytic anemia 1 Occurrences starting 07/31/2019 until 07/31/2019 documented as of this encounter Goals Goal [...] Date/Time Associated Diagnosis Comments SCAN, PERIPHERAL BLOOD STAT 0 8:00 AM EST HEMOGRAM STAT 07/31/2019 8:00 AM EST Thymic carcinoma DIFFERENTIAL, AUTOMATED STAT 07/31/2019 8:00 AM EST Thymic carcinoma HC CBC,PLT & AUTO DIFF STAT 0 8:00 AM EST Thymic carcinoma HC THYROID STIMULATING HORMONE, SERUM Routine 07/31/2019 8:00 AM EST Thymic carcinoma HC FREE THYROXINE (T4) Routine 0 8:00 AM EST Thymic carcinoma HC MAGNESIUM, SERUM STAT 07/31/2019 8 :00 AM EST Thymic carcinoma COMPREHENSIVE METABOLIC PANEL STAT 07/31/2019 8:00 AM EST Thymic carcinoma documented in this encounter Results * Scan, Peripheral Blood (07/31/2019 8:00 AM EST) Plat estimate Decreased [facility] RBC Morphology Abnormal [facility] Macrocyte 6-10 /HPF [facility] Blood specimen (specimen) 07/31/2019 8:00 AM EST 07/31/2019 8:01 AM EST Narrative Resulting Agency Comment Spec In Lab Shon Schneider MD HEMATOLOGY ORDERABLE S [facility] [place] [address] * (ABNORMAL) Differential, Automated (07/31/2019 8:00 AM EST) Neutrophil % 58.7 % [facility] Neutrophil Absolute 1.55(L) 1.70 - 6.10 x10(3)/mc L [facility] Lymph % 31.1 % [facility] Lymphocytes Abs 0.8(L) 0.9 - 3.2 x10(3)/mc L [facility] Monocyte % 8.3 % [facility] Monocyte Abs 0.2(L) 0.3 - 0.9 x10(3)/mc L [facility] Eos % 1.5 % [facility] Eosinophils Abs 0.0 0.0 - 0.4 x10(3)/mc L [facility] Basophil % 0.0 % [facility] Baso Absolute 0.0 0.0 - 0.1 x10(3)/mc L [facility] Immature Gran % 0.40 % [facility] Comment: Immature granulocytes(IG's)percentage and absolute count will include metamyelocytes, myelocytes, and promyelocytes. Blood smears from CBCs yielding IG's will be scanned manually for concordance. If this scan disagrees with the automated IG or if promyelocytes are noted, a manual differential will be performed. Immature Gran Absolute 0.01 0.00 - 0.04 x10(3)/mc L [facility] Blood specimen (specimen) 07/31/2019 8:00 AM EST 07/31/2019 8:01 AM EST Narrative Resulting Agency Comment Spec In Lab Shon Schneider MD HEMATOLOGY ORDERABLE S [facility] [place] [address] * (ABNORMAL) Hemogram (07/31/2019 8:00 AM EST) White Blood Cell 2.6(L) 4.0 - 9.5 x10(3)/mc L [facility] Red Blood Cell 2.18(L) 4.00 - 5.21 x10(6)/mc L [facility] Hemoglobin 8.5(L) 11.7 - 15.5 gm/dL [facility] Hematocrit 26.3(L) 35.7 - 45.8 % [facility] Mean Cell Volume 120.6(H) 82.6 - 94.4 fL [facility] Mean Cell Hemoglobin 39.0(H) 27.1 - 32.0 pg [facility] Mean Cell Hemoglobin Concentration 32.3 31.7 - 35.0 gm/dL [facility] Platelet 114(L) 145 - 357 x10(3)/mc L [facility] RDW Standard Deviation 88.2(H) 37.0 - 46.0 fL [facility] RDW coefficient of variation 20.5(H) 11.5 - 14.1 % [facility] Mean Platelet Volume 10.2 7.6 - 12.9 fL [facility] NRBC% auto 0.0 % [facility] NRBC Absolute 0.000 0.000 - 0.000 x10(3)/mc L [facility] Blood specimen (specimen) 07/31/2019 8:00 AM EST 07/31/2019 8:01 AM EST Narrative Resulting Agency Comment Spec In Lab Shon Schneider MD HEMATOLOGY ORDERABLE S Performing Organization Address [facility]/ZIP Co de Phone Number [facility] [place] [address] * (ABNORMAL) TSH (07/31/2019 8:00 AM EST) Thyroid Stimulating Hormone 4.62(H) 0.27 - 4.20 mcIU/mL [facility] Blood specimen (specimen) 07/31/2019 8:00 AM EST 07/31/2019 8:01 AM EST Narrative Resulting Agency Comment Spec In Lab Shon Schneider MD CHEMISTRY ORDERABLES Performing Organization Address [facility] Co de Phone Number [facility] [place] [address] * T4, free (07/31/2019 8:00 AM EST) Free T4 1.14 0.93 - 1.70 ng/dL [facility] Blood specimen (specimen) 07/31/2019 8:00 AM EST 07/31/2019 8:01 AM EST Narrative Resulting Agency Comment Spec In Lab Shon Schneider MD CHEMISTRY ORDERABLES Performing Organization Address [facility] Co de Phone Number [facility] [place] [address] * Magnesium (07/31/2019 8:00 AM EST) Magnesium 0.70 0.69 - 1.07 mmol/L [facility] Blood specimen (specimen) 07/31/2019 8:00 AM EST 07/31/2019 8:01 AM EST Narrative Resulting Agency Comment Spec In Lab Shon Schneider MD CHEMISTRY ORDERABLES Performing Organization Address [facility]/ZIP Co de Phone Number [facility] [place] [address] * (ABNORMAL) Comprehensive metabolic panel (non-fasting) (07/31/2019 8:00 AM EST) Glucose 117 65 - 199 mg/dL [facility] Comment:Diabetes: >=200 mg/d L plus symptoms Blood Urea Nitrogen 10 8 - 18 mg/dL [facility] Creatinine 0.58(L) 0.70 - 1.20 mg/dL [facility] Sodium 138 135 - 145 mmol/L [facility] Potassium 3.8 3.5 - 5.0 mmol/L [facility] Comment: Please note: ??Patients with WBC >100,000 may have falsely elevated Potassium levels. ??For accurate Potassium quantification in these patients send serum separator tube (gold top) for subsequent determinations. ??Contact the Clinical Chemistry Laboratory if there are any questions. Chloride 99 98 - 107 mmol/L [facility] Carbon Dioxide 27 22 - 31 mmol/L [facility] Anion Gap 12 5 - 15 mmol/L [facility] Calcium 9.6 8.5 - 10.5 mg/dL [facility] Protein, Total 7.5 6.1 - 8.0 gm/dL [facility] Albumin 4.1 3.2 - 5.2 gm/dL [facility] Aspartate Aminotransferase 14 0 - 30 unit/L [facility] Alanine Aminotransferase 16 0 - 30 unit/L [facility] Alkaline Phosphatase 43 35 - 105 unit/L [facility] Bilirubin, Total 0.5 0.2 - 1.3 mg/dL [facility] Est Glomerular Filtration Rate 99 >=60 mL/min/1. 73 m?? [facility] Comment: The eGFR was calculated using the CKD-EPI equation. As with all creatinine based estimates of kidney function, eGFR values calculated with the CKD-EPI equation are not accurate in patients with acute kidney failure, extremes of body mass or the acutely ill. [email or web address] eGFR 114 >=60 mL/min/1. 73 m?? [facility] Comment: The eGFR was calculated using the CKD-EPI equation. As with all creatinine based estimates of kidney function, eGFR values calculated with the CKD-EPI equation are not accurate in patients with acute kidney failure, extremes of body mass or the acutely ill. 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 documented in this encounter Administered Medications Inactive Administered Medications - up to 3 most recent administrations Medication Order MAR Action Action Date Dose Rate Site sodium chloride 0.9 % (flush) flush 20 mL 20 mL, Intravenous, EVERY 1 MIN PRN, Starting on Tue07/31/19 at 0747, Until Tue08/01/19 at 0435, Director Validation, Routine Given 07/31/2019 7:57 AM EST 20 mLs documented in this encounter Care Teams Journeyman Level Acoustic Analyst Relationship Specialty Start Date End Date Jerzy Vidal MD [address] [place] [address] [place] [address] PCP - [facility] 12/04/18 documented as of this encounter
--- OUTSIDE RECORDS SUMMARY | 2024-02-24 01:23 | XMS_ITS | Encounter Summary ---
Author Organization [facility] Address [facility] [place] [address] Care Team Providers Care Marine Technician Name Role Phone Jerzy Vidal MD Primary Care Provider [phone] Encounter Details Date Type Department Care Team (Late st Contact Info) Description 06/01/2019 2:30 PM EST Office Visit Hematology/Oncology at [address] [phone] Shon Schneider MD [facility] [place] [address] Nadeen Srivastava, RN Thymic carcinoma Social History Tobacco Use Types Packs/Day Years Used Date Smoking Tobacco: Never Smokeless Tobacco: Never Sex and Gender Information Value Date Recorded Sex Assigned at Not on file Gender Identity Not on file Sexual Orientation Not on file documented as of this encounter Last Filed Vital Signs Vital Sign Reading Time Taken Comments Blood Pressure 134/84 06/01/2019 2:24 PM EST Pulse 80 06/01/2019 2:24 PM EST Temperature 36.8 ??C (98.2 ??F) 06/01/2019 2:24 PM ES T Respiratory Rate 18 06/01/2019 2:24 PM EST Oxygen Saturation 100% 06/01/2019 2:24 PM EST Inhaled Oxygen Concentration - - Weight 122.9 kg (271 lb) 06/01/2019 2:24 PM EST Height 176.5 cm (5' 9.5) 06/01/2019 2:24 PM EST Body Mass Index 39.45 06/01/2019 2:24 PM EST documented in this encounter Progress Notes * Nadeen Srivastava, FLIGHT STEWARD - 06/01/2019 2:30 PM EST Subjective: 1. Thymic carcinoma Patient Active Problem List Diagnosis Code ??? Thymic carcinoma C37 ??? Pancytopenia D61.818 ??? Atrial fibrillation I48.91 ??? Essential hypertension I10 ??? Hypothyroidism E03.9 Patient ID: Monica Jaramillo is a 63 y.o. female. See Cancer Treatment Summary HPI- Ms. Jaramillo returns to clinic today for follow up of thymic carcinoma. Overall she is feeling well.Denies any nausea, vomiting, constipation or diarrhea. No fevers, chills or signs of infection. Appetite is good. Review of Systems Constitutional: Negative for appetite change and fatigue. HENT: Negative for trouble swallowing. Hematological: Negative for adenopathy. All other systems reviewed and are negative. Past Medical History: Diagnosis Date ??? Atrial fibrillation ??? HTN (hypertension) ??? Obesity ??? Thymic cancer 04/2017 ??? 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 ?? Fam Hx: No h/o cancer Objective: Physical Exam Constitutional: She appears well-developed and well-nourished. HENT: Head: Normocephalic and atraumatic. Eyes: Pupils are equal, round, and reactive to light. Conjunctivae are normal. Cardiovascular: Normal rate and regular rhythm. Pulmonary/Chest: Effort normal and breath sounds normal. Abdominal: Soft. Bowel sounds are normal. Musculoskeletal: She exhibits edema. Bilateral edema in LE Lymphadenopathy: She has no cervical adenopathy. Skin: Skin is warm and dry. Psychiatric: She has a normal mood and affect. BP 134/84 (Patient Position: Sitting) Pulse 80 Temp 36.8 ??C (98.2 ??F) (Oral) Resp 18 Ht 176.5 cm (5' 9.5) Wt 122.9 kg (271 lb) SpO2 100% BMI 39.45 kg/m?? Labs-05/29/19- WBC-2.8 HGB-9.6 HCT-27.0 Plt-105 ANC-1.43 Mg-1.3 Lytes and LFTs unremarkable. Assessment and Plan: Ms. Jaramillo is a 63 yo female seen in f/u of thymic carcinoma, as summarized above. The diagnosis was made in 03/2017. ?? She initially received therapy with carboplatin and paclitaxel and received 16 cycles. During the carboplatin infusion with cycle 16, she had an infusion reaction consisting of flushing, tachycardia and hypotension which resolved with additional dexamethasone and benadryl. She has also had significant problems with myelosuppression including anemia and thrombocytopenia. She received a blood transfusion on 04/15/18 for a hemoglobin of 7. ?? The CT done 05/11/18 showed the disease to be stable per the report. Given the infusion reaction tothe carboplatiin as well as the cumulative toxicites, the carboplatin plus paclitaxel was stopped in 05/30. ?? We had discussed changing therapy to pembrolizumab. [...] trying. I spoke with Dr. Vega at [facility]. There were no clinical trials available there. His thought was to try sunitinib. ?? She began sunitinib on 06/24/18 (50 pg [...] mg/day, 2 weeks followed by one w [place] off, with cycles repeated every three weeks. She has tolerated that well. ?? She had a restaging CT scan done [...] anemic. She decided against the BM bx. ?? She resumed therapy with sunitinib at 25 mg per day on 01/05/19 with plans to have her take this fortwo weeks on and 1 week off. She has tolerated this dose and schedule well. ?? The restaging CT scan done 04/04/19 showed [...] will plan to do that in June. ?? The TSH and free T4 are WNL. Will have her continue the same dose of synthroid and recheck this in 6 weeks. 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 She had an elevated fractional excretion of magnesium and therefore in 01/2019 was started on amiloride. The magnesium is low but a little better. She had a magnesium infusion about two weeks ago. ?? Foundation One testing. Per the report, there were 3 genomic findings but no therapies associated with potential clinical benefit. Of note, pembrolizumab is now included on the NCCN list of second line therapies with a note that, in this disease, there is a higher risk of serious immune related toxicity, including myocarditis. ? Plan- 1. Thymic carcinoma- Continue Sunitinib 25mg po 14 days on 7 days off. She will be restarting her doses on Tuesday. ANC borderline at 1.43 but she believes this is because she had her labwork drawn sooner than she usually does. Will repeat CBC in one week. 2. Repeat TSH, T4. 3. CT to be done in June. 4. Follow up visit in 3 weeks with labwork. * Nadeen Srivastava APRN - 06/01/2019 2:30 PM EST Subjective: 1. Thymic carcinoma Patient Active Problem List Diagnosis Code ??? Thymic carcinoma C37 ??? Pancytopenia D61.818 ??? Atrial fibrillation I48.91 ??? Essential hypertension I10 ??? Hypothyroidism E03.9 Patient ID: Monica Jaramillo is a 63 y.o. female. See Cancer Treatment Summary HPI- Ms. Jaramillo returns to clinic today for follow up of thymic carcinoma. Overall she is feeling well.Denies any nausea, vomiting, constipation or diarrhea. No fevers, chills or signs of infection. Appetite is good. Review of Systems Constitutional: Negative for appetite change and fatigue. HENT: Negative for trouble swallowing. Hematological: Negative for adenopathy. All other systems reviewed and are negative. Past Medical History: Diagnosis Date ??? Atrial fibrillation ??? HTN (hypertension) ??? Obesity ??? Thymic cancer 04/2017 ??? 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 ?? Fam Hx: No h/o cancer Objective: Physical Exam Constitutional: She appears well-developed and well-nourished. HENT: Head: Normocephalic and atraumatic. Eyes: Pupils are equal, round, and reactive to light. Conjunctivae are normal. Cardiovascular: Normal rate and regular rhythm. Pulmonary/Chest: Effort normal and breath sounds normal. Abdominal: Soft. Bowel sounds are normal. Musculoskeletal: She exhibits edema. Bilateral edema in LE Lymphadenopathy: She has no cervical adenopathy. Skin: Skin is warm and dry. Psychiatric: She has a normal mood and affect. BP 134/84 (Patient Position: Sitting) Pulse 80 Temp 36.8 ??C (98.2 ??F) (Oral) Resp 18 Ht 176.5 cm (5' 9.5) Wt 122.9 kg (271 lb) SpO2 100% BMI 39.45 kg/m?? Labs-05/29/19- WBC-2.8 HGB-9.6 HCT-27.0 Plt-105 ANC-1.43 Mg-1.3 Lytes and LFTs unremarkable. Assessment and Plan: Ms. Jaramillo is a 63 yo female seen in f/u of thymic carcinoma, as summarized above. The diagnosis was made in 03/2017. ?? She initially received therapy with carboplatin and paclitaxel and received 16 cycles. During the carboplatin infusion with cycle 16, she had an infusion reaction consisting of flushing, tachycardia and hypotension which resolved with additional dexamethasone and benadryl. She has also had significant problems with myelosuppression including anemia and thrombocytopenia. She received a blood transfusion on 04/15/18 for a hemoglobin of 7. ?? The CT done 05/11/18 showed the disease to be stable per the report. Given the infusion reaction tothe carboplatiin as well as the cumulative toxicites, the carboplatin plus paclitaxel was stopped in 05/30. ?? We had discussed changing therapy to pembrolizumab. [...] trying. I spoke with Dr. Vega at [facility]. There were no clinical trials available there. His thought was to try sunitinib. ?? She began sunitinib on 06/24/18 (50 pg [...] mg/day, 2 weeks followed by one w [place] off, with cycles repeated every three weeks. She has tolerated that well. ?? She had a restaging CT scan done [...] anemic. She decided against the BM bx. ?? She resumed therapy with sunitinib at 25 mg per day on 01/05/19 with plans to have her take this fortwo weeks on and 1 week off. She has tolerated this dose and schedule well. ?? The restaging CT scan done 04/04/19 showed [...] will plan to do that in June. ?? The TSH and free T4 are WNL. Will have her continue the same dose of synthroid and recheck this in 6 weeks. 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 She had an elevated fractional excretion of magnesium and therefore in 01/2019 was started on amiloride. The magnesium is low but a little better. She had a magnesium infusion about two weeks ago. ?? Foundation One testing. Per the report, there were 3 genomic findings but no therapies associated with potential clinical benefit. Of note, pembrolizumab is now included on the NCCN list of second line therapies with a note that, in this disease, there is a higher risk of serious immune related toxicity, including myocarditis. ? Plan- 1. Thymic carcinoma- Continue Sunitinib 25mg po 14 days on 7 days off. She will be restarting her doses on Tuesday. ANC borderline at 1.43 but she believes this is because she had her labwork drawn sooner than she usually does. Will repeat CBC in one week. 2. CT to be done in June. 3. Follow up visit in 3 weeks with labwork. documented in this encounter Plan of Treatment Upcoming Encounters Date Type Department Care Team (Late st Contact Info) Description 02/24/2024 9:00 AM EDT Office Visit Hematology/Oncology at [address] [phone] Shon Schneider MD [facility] [address] Ciara Pitts [address] [place] [address] 02/24/2024 9:30 AM EDT Infusion Hematology Oncology at [address] [phone] 03/02/2024 11:00 AM EDT Office Visit Hematology/Oncology at [address] [phone] Shon Schneider MD [facility] [place] [address] Ciara Pitts [address] HEMATOLOGY AND ONCOLOGY [place], [place] [id number] 03/02/2024 12:30 PM EDT Infusion Hematology Oncology at [address] [phone] 03/09/2024 10:00 AM EDT Office Visit Hematology/Oncology at [address] [phone] Shon Schneider MD [facility] [place] [address] Ciara Pitts APRN [address] [place] [address] DR HEMATOLOGY AND ONCOLOGY [place], [place] [id number] 03/09/2024 10:30 AM EDT Infusion Hematology Oncology at [address] [phone] documented as of this encounter Goals Goal [...] documented in this encounter Care Teams Marine Technician Relationship Specialty Start Date End Date Jerzy Vidal MD [address] [place] [address] [place] [address] PCP - [facility] 12/04/18 documented as of this encounter
--- OUTSIDE RECORDS SUMMARY | 2024-02-24 01:23 | XMS_ITS | Encounter Summary ---
Author Organization [facility] Address [facility] [place] [address] Care Team Providers Care Cad Drafter Name Role Phone Jerzy Vidal MD Primary Care Provider [phone] Reason for Visit * Reason Comments Follow-up Encounter Details Date Type Department Care Team (Late st Contact Info) Description 07/31/2019 1:00 PM EST Office Visit Hematology [place] [phone] Shon Schneider MD [facility] [place] [address] Thymic carcinoma Social History Tobacco Use Types Packs/Day Years Used Date Smoking Tobacco: Never Smokeless Tobacco: Never Sex and Gender Information Value Date Recorded Sex Assigned at Not on file Gender Identity Not on file Sexual Orientation Not on file documented as of this encounter Last Filed Vital Signs Vital Sign Reading Time Taken Comments Blood Pressure 129/75 07/31/2019 12:20 PM EST Pulse 93 07/31/2019 12:20 PM EST Temperature 36.5 ??C (97.7 ??F) 07/31/2019 12:[address] Respiratory Rate 18 07/31/2019 12:20 PM EST Oxygen Saturation 97% 07/31/2019 12:20 PM EST Inhaled Oxygen Concentration - - Weight 126.1 kg (278 lb) 07/31/2019 12:20 PM EST Height 176 cm (5' 9.29) 07/31/2019 12:20 PM EST Body Mass Index 40.71 07/31/2019 12:20 PM EST documented in this encounter Progress Notes * Shon Schneider MD - 07/31/2019 1:00 PM EST Subjective: Patient ID: Monica [...] Biopsy of mediastinal mass 03/29 Path [place] [place] - Mediastinum, mass, biopsy: 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 [facility] - CONSULT SLIDES FROM [facility]; [place], [place]: A. MEDIASTINUM, MASS, BIOPSY ([id number]; 03/22/2017): ? 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 ?Immunohistochemistry performed at the outside institution and reviewed at [facility] demonstrates the following staining profile in lesional cells: ? Positive - AE1/AE3, p40, PAX8, CD117, CD5(multifocal), CK7(scattered cells), synaptophysin, chromogranin ? Negative - CK20, TTF-1, GATA3, CD34 ? The immunohistochemical profile supports the above diagnosis. ? Ki67 (MIB-1) proliferation index performed at the referring institution and reviewed at [facility] is focally up to ~30%. NOTE: While diffuse synaptophysin and chromogranin expression is unusual for conventional thymic carcinoma, the overall histomorphology and immunophenotype is most in keeping with THYMIC SQUAMOUS CARCINOMA.?The extent of PAX8 and CD117 staining would be unusual for Nut carcinoma. B. MEDIASTINUM, ANTERIOR, 4.5 CM, ULTRASOUND GUIDED FINED NEEDLE ASPIRATION ([id number]; 03/22/17): The cytologic preparations were not reviewed [...] Second opinion with Dr. Roddy Vega in [place]. They reviewed the pathology and concurred they [...] feeling very well and continues totolerate therapy well with the exception of increased problems with myelosuppression. She received a blood trasfusion about two weeks ago. Even with a Hgb of 6.9, she was not very symptomatic. She iseating well and her weight is stable. Her energy and exercise tolerance are good. No dyspnea. No chest pain. Her bowels are regular. Soc Hx: , lives in [place], [place] Tob - Never Etoh - rare [...] Recent Results (from the past 24 hour(s)) Comprehensive metabolic panel (non-fasting) Result Value Ref Range Glucose Lvl 117 65 - 199 mg/dL BUN 10 8 - 18 mg/dL Creatinine 0.58 (L) 0.70 - 1.20 mg/dL Sodium 138 135 - 145 mmol/L Potassium 3.8 3.5 - 5.0 mmol/L Chloride 99 98 - 107 mmol/L CO2 27 22 - 31 mmol/L Anion Gap 12 5 - 15 mmol/L Calcium 9.6 8.5 - 10.5 mg/dL Total Protein 7.5 6.1 - 8.0 gm/dL Albumin 4.1 3.2 - 5.2 gm/dL AST 14 0 - 30 unit/L ALT 16 0 - 30 unit/L Alk Phos 43 35 - 105 unit/L Total Bilirubin 0.5 0.2 - 1.3 mg/dL eGFR 99 >=60 mL/min/1.73 m?? eGFR 114 >=60 mL/min/1.73 m?? Magnesium Result Value Ref Range Magnesium 0.70 0.69 - 1.07 mmol/L T4, free Result Value Ref Range Free T4 1.14 0.93 - 1.70 ng/dL TSH Result Value Ref Range TSH 4.62 (H) 0.27 - 4.20 mcIU/mL Hemogram Result Value Ref Range WBC 2.6 (L) 4.0 - 9.5 x10(3)/mcL RBC 2.18 (L) 4.00 - 5.21 x10(6)/mcL Hemoglobin 8.5 (L) 11.7 - 15.5 gm/dL Hematocrit 26.3 (L) 35.7 - 45.8 % MCV 120.6 (H) 82.6 - 94.4 fL MCH 39.0 (H) 27.1 - 32.0 pg MCHC 32.3 31.7 - 35.0 gm/dL Platelets 114 (L) 145 - 357 x10(3)/mcL RDWSD 88.2 (H) 37.0 - 46.0 fL RDWCV 20.5 (H) 11.5 - 14.1 % MPV 10.2 7.6 - 12.9 fL nRBC % Auto 0.0 % nRBC Abs Auto 0.000 0.000 - 0.000 x10(3)/mcL Differential, Automated Result Value Ref Range Neutrophils % 58.7 % Neutr Abs (ANC) 1.55 (L) 1.70 - 6.10 x10(3)/mcL Lymphocytes % 31.1 % Lymphocytes Abs 0.8 (L) 0.9 - 3.2 x10(3)/mcL Monocytes % 8.3 % Monocyte Abs 0.2 (L) 0.3 - [...] trying. [facility] [...] mg/day, 2 weeks followed by one w [place] off, with cycles repeated every three weeks. [...] continue the current therapy and repeat the CT. She had a restaging CT scan done today, 08/10/19. This shows two small but new nodules in the left lower lung. The pericardial nodule is read as stable but it appears that this may be slightly larger. Overall, it appears that she has slow progression ofdisease. We talked about options, including continuing the sutent for a longer period of time vs changing to immunotherapy with pembrolizumab. Of note, she has recently had more problems with myelosup pression, pancytopenia, which is likely to limit our ability to continue the sutent on the current dose and schedule. She would very much like to change therapy to immunotherapy with pembrolizumab. She has a high PD-L1 score and is aware of a number of pts through an online group who have had good results with this. She is aware of the possibility of potentially serious and sometimes fatal autoimmune effects, including myocarditis, among others. I will arrange for a baseline ECG and echocardiogram followed by an appt is [facility] with infusion time for pembrolizumab. The TSH is a little high but the T4 is WNL. Will have her continue the same dose of synthroid and recheck. 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 She had an elevated fractional excretion of magnesium and therefore in 01/2019 was started on amiloride. The magnesium level today is actually WNL. Foundation One testing. Per the report, there [...] AM EDT Office Visit Hematology/Oncology at [address] [phone] Shon Schneider MD [facility] [place] [address] [address] [place] [address] 02/24/2024 9:30 AM EDT Infusion Hematology Oncology at [address] [phone] 03/02/2024 11:00 AM EDT Office Visit Hematology/Oncology at [address] [phone] Shon Schneider MD [facility] [place] [address] [address] [place] [address] 03/02/2024 12:30 PM EDT Infusion Hematology Oncology at [address] [phone] 03/09/2024 10:00 AM EDT Office Visit Hematology/Oncology at [address] [phone] Shon Schneider MD [facility] [place] [address] Ciara Pitts APRN [address] [place] [address] DR HEMATOLOGY AND ONCOLOGY [place], [place] [id number] 03/09/2024 10:30 AM EDT Infusion Hematology Oncology at [address] [phone] Scheduled Orders Name Type Priority Associated Diagnoses Orde r Schedule EKG 12 Lead ECG Routine Thymic carcinoma Ordered: 07/31/2019 documented as of this encounter Goals [...] thymus documented in this encounter Care Teams Cad Drafter Relationship Specialty Start Date End Date Jerzy Vidal MD [address] [place] [address] [place] [address] PCP - [facility] 12/04/18 documented as of this encounter
--- OUTSIDE RECORDS SUMMARY | 2024-02-24 01:23 | XMS_ITS | Encounter Summary ---
Author Organization [facility] [place] [address] Care Team Providers Care Tax Services Specialist Name Role Phone Jerzy Vidal MD Primary Care Provider [phone] Reason for Visit * Reason Comments Medication Refill Encounter Details Date Type Department Care Team (Late Contact Info) Description 05/21/2019 Refill Hematology/Oncology at [address] [phone] Shon Schneider MD [facility] [place] [address] Hypomagnesemia Social History Tobacco Use Types Packs/Day [...] AM EDT Office Visit Hematology/Oncology at [address] [phone] Shon Schneider MD [facility] [place] [address] Ciara Pitts APRN [address] [place] [address] DR HEMATOLOGY AND ONCOLOGY [place], [place] [id number] 02/24/2024 9:30 AM EDT Infusion Hematology Oncology at [address] [phone] 03/02/2024 11:00 AM EDT Office Visit Hematology/Oncology at [address] [phone] Shon Schneider MD [facility] [place] [address] HEMATOLOGY AND ONCOLOGY [place], [place] [id number] 03/02/2024 12:30 PM EDT Infusion Hematology Oncology at [address] [phone] 03/09/2024 10:00 AM EDT Office Visit Hematology/Oncology at [address] [phone] Shon Schneider MD [facility] [place] [address] [address] [place] [address] 03/09/2024 10:30 AM EDT Infusion Hematology Oncology at [address] [phone] documented as of this encounter Goals Goal [...] thymus documented in this encounter Care Teams Tax Services Specialist Relationship Specialty Start Date End Date Jerzy Vidal MD [address] [place] [address] [place] [address] PCP - [facility] 12/04/18 documented as of this encounter
--- OUTSIDE RECORDS SUMMARY | 2024-02-24 01:23 | XMS_ITS | Encounter Summary ---
Author Organization [facility] [place] [address] Care Team Providers Care Feed Research Aide Name Role Phone Jerzy Vidal MD Primary Care Provider [phone] Reason for Visit * Reason Onset Date Comments Labs Only 03/16/2019 Lab tracking Encounter Details Date Type Department Care Team (Late st Contact Info) Description 03/16/2019 Telephone Hematology Oncology at [address] [phone] Eden Vieira, RN Labs Only (Lab tracking) Social History Tobacco Use Types Packs/Day Years Used Date Smoking Tobacco: Never Smokeless Tobacco: Never Sex and Gender Information Value Date Recorded Sex Assigned at Not on file Gender Identity Not on file Sexual Orientation Not on file documented as of this encounter Miscellaneous Notes * Telephone Encounter - Eden Vieira, RN - 03/16/2019 12:14 PM EDT LAB TRACKING Brayan Pierre [id number] DIAGNOSIS: thymic cancer LABS ORDERED: cbc diff, cmp, mag MEDICATIONS: Sutent Standing transfusion orders from PCP at [facility] Assessment/Plan: Pt is 6 days into her Sutent cycle of 14 days and then has 7 off. She will have labs again next week on . Results for BRAYAN PIERRE ( ) as of 03/16/2019 12:25 Ref. Range 02/15/2019 00:00 03/01/2019 00:00 03/08/2019 00:00 03/16/2019 00:00 WBC Unknown 3.8 4 4.3 2.6 Hemoglobin Unknown 10.7 11.4 10.7 10.6 Hematocrit Unknown 31.8 32.9 31.0 30.9 Platelets Unknown 108 95 95 88 Neutr Abs (ANC) Unknown 2.39 2.28 2.40 1.53 Sodium Unknown 137 Potassium Unknown 3.8 3.9 3.8 BUN Unknown 13 14 13 Creatinine Unknown 0.70 0.60 0.60 Calcium Unknown 9.4 9.5 9.8 Magnesium Latest Units: mg/dL 1.4 1.3 1.2 1.2 Total Bilirubin Unknown 0.7 Alk Phos Unknown 62 55 AST Unknown 26 37 30 31 ALT Unknown 21 19 20 T4, total Unknown 7.8 TSH Unknown 3.79 3.58 documented in this encounter Plan of Treatment Upcoming Encounters Date Type Department Care Team (Late st Contact Info) Description 02/24/2024 9:00 AM EDT Office Visit Hematology/Oncology at [address] [phone] Shon Schneider MD [facility] [place] [address] [address] HEMATOLOGY AND ONCOLOGY [place], [place] [address] 02/24/2024 9:30 AM EDT Infusion Hematology Oncology at [address] [phone] 03/02/2024 11:00 AM EDT Office Visit Hematology/Oncology at [address] [phone] Shon Schneider MD [facility] [address] [address] HEMATOLOGY AND ONCOLOGY [place], [place] [id number] 03/02/2024 12:30 PM EDT Infusion Hematology Oncology at [address] [phone] 03/09/2024 10:00 AM EDT Office Visit Hematology/Oncology at [address] [phone] Shon Schneider MD [facility] [place] [address] Ciara Pitts APR[address] HEMATOLOGY AND ONCOLOGY [place], [place] [id number] 03/09/2024 10:30 AM EDT Infusion Hematology Oncology at [address] [phone] documented as of this encounter Goals Goal [...] Associated Diagnosis Comments CBC (WITH DIFF) Routine 03/16/2019 MAGNESIUM Routine 03/16/2019 COMPREHENSIVE METABOLIC PANEL Routine 03/16/2019 documented in this encounter Results * Magnesium (03/16/2019) Magnesium 1.2 mg/dL Blood specimen (specimen) 03/16/2019 Shon Schneider MD CHEMISTRY ORDERABLES * Comprehensive metabolic panel (non-fasting) (03/16/2019) Blood Urea Nitrogen 13 Creatinine 0.60 Potassium 3.8 Calcium 9.8 Bilirubin, Total 0.7 Alkaline Phosphatase 55 Aspartate Aminotransferase 31 Alanine Aminotransferase 20 Blood specimen (specimen) 03/16/2019 Shon Schneider MD CHEMISTRY ORDERABLES * CBC (with Diff) (03/16/2019) White Blood Cell 2.6 Hemoglobin 10.6 Hematocrit 30.9 Platelet 88 Neutrophil Absolute (ANC) - Automated 1.53 Blood specimen (specimen) 03/16/2019 Shon Schneider MD HEMATOLOGY ORDERABLE S documented in this encounter Visit Diagnoses Not on filedocumented in this encounter Care Teams Feed Research Aide Relationship Specialty Start Date End Date Jerzy Vidal MD [address] [place] [address] [place] [address] PCP - [facility] Medicine 12/04/18 documented as of this encounter
--- OUTSIDE RECORDS SUMMARY | 2024-02-24 01:23 | XMS_ITS | Encounter Summary ---
Author Organization [facility] Address [facility] [place] [address] Care Team Providers Care Facilities Operator Name Role Phone Jerzy Vidal MD Primary Care Provider [phone] Reason for Visit * Reason Comments Chemotherapy pembrolizumab * Treatment/Therapy Plan Authorization (Routine) - Closed Specialty Diagnoses / Procedures Referred By Franklyn del rio Referred To Contact Diagnoses Thymic carcinoma Procedures [id number] - KEYTRUDA / PEMBROLIZUMAB Shon Schneider MD [facility] [place] [address] St Hem Onc Infusion [address] [place] [phone] Referral ID Status Reason Start Date Expiration Date Visits Re quested Visits Authorized [id number] Closed 09/25/2019 01/17/2021 10 10 Encounter Details Date Type Department Care Team (Late st Contact Info) Description 08/17/2019 2:00 PM EST Infusion Hematology Oncology at [address] [phone] Thymic carcinoma Social History Tobacco Use Types Packs/Day Years Used Date Smoking Tobacco: Never Smokeless Tobacco: Never Sex and Gender Information Value Date Recorded Sex Assigned at Not on file Gender Identity Not on file Sexual Orientation Not on file documented as of this encounter Progress Notes * Brionna Andrade RN - 08/17/2019 2:00 PM EST INFUSION THERAPY ADMINISTRATION NOTES TIME TREATMENT STARTED: 1430 TIME TREATMENT ENDED: 1520 DIAGNOSIS: thymic cancer PROTOCOL:na CYCLE #: 1 REASON FOR VISIT: pembrolizumab SUBJECTIVE Monica Jaramillo offers no complaints. OBJECTIVE LAB DATA: Labs reviewed and found adequate for treatment. mediport with excellent blood return before and after infusion Pre administration: Chemotherapy orders independently verified for drug name, route, and dosage per patient's height, weight and BSA by Bryce Andrade RN and Barbara root pharmacist. Reviewed numbers to call at clinic and [facility] leb on off hours if any issues. Gave discharge booklet with numbers on it. Reviewed major side effects with pt and . REACTIONS (DESCRIPTION, TIME, INTERVENTION AND EFFECTIVENESS) none ASSESSMENT Monica Jaramillo was awake, alert and he tolerated treatment well. PLAN Return to clinic in 3 week.s documented in this encounter Plan of Treatment Upcoming Encounters Date Type Department Care Team (Late st Contact Info) Description 02/24/2024 9:00 AM EDT Office Visit Hematology/Oncology at [address] [phone] Shon Schneider MD [facility] [place] [address] Ciara Pitts [address] [place]AT[place]Y [place] [address] 02/24/2024 9:30 AM EDT Infusion Hematology Oncology at [address] [phone] 03/02/2024 11:00 AM EDT Office Visit Hematology/Oncology at [address] [phone] Shon Schneider MD [facility] [place] [address] Ciara Pitts [address] HEMATOLOGY AND ONCOLOGY [place], [place] [address] 03/02/2024 12:30 PM EDT Infusion Hematology Oncology at [address] [phone] 03/09/2024 10:00 AM EDT Office Visit Hematology/Oncology at [address] [phone] Shon Schneider MD [facility] [place] [address] Ciara Pitts APRN [address] [place] [address] DR HEMATOLOGY AND ONCOLOGY [place], [place] [phone] 03/09/2024 10:30 AM EDT Infusion Hematology Oncology at [address] [phone] documented as of this encounter Goals Goal [...] Priority Date/Time Associated Diagnosis Comments LAB SCAN 08/23/2019 12:00 AM EDT LAB SCAN 08/23/2019 12:00 AM EDT documented in this encounter Results * SCAN DOC: LAB (08/23/2019 12:00 AM EDT) Narrative 08/23/2019 12:00 AM EDT Ordered by an unspecified provider. Scanning Provider MEDIA MGR SCAN EXT O RDR/RSLT * SCAN DOC: LAB (08/23/2019 12:00 AM EDT) Narrative 08/23/2019 12:00 AM EDT Ordered by an unspecified [...] 500 Units, Intravenous, ONCE PRN, Starting on Tue08/17/19 at 1413, Until Tue08/17/19 at 1829, Line Care, Refer to Intravenous (IV) Procedure: Accessing Implanted Vascular Access Devices (654) procedure and/or Intravenous (IV) Job Aid: Adult Flushing & Catheter Care (8188) job aid for additional information regarding guidelines and administration., Routine Given 08/17/2019 3:15 PM EST 500 Units pembrolizumab (KEYTRUDA) 200 mg in sodium chloride 0.9% 108 mL infusion 200 mg, Intravenous, ONCE, 1 dose, On Tue08/17/19 at 1530, Administer over 30 Minutes, Flush line with NS after each dose., This agent is restricted to outpatient use. Is this drug being given as an outpatient? Yes New Bag 08/17/2019 2:43 PM EST 200 mg 216 mL/hr sodium chloride 0.9 % (flush) flush 5-20 mL 5-20 mL, Intravenous, EVERY 1 MIN PRN, Starting on Tue08/17/19 at 1413, Until Tue08/17/19 at 1829, Line Care, Flush pertains to all indwelling lines. Flush per protocol found in the job aid using the link provided on this medication record. Refer to Intravenous (IV) Job Aid: Adult Flushing & Catheter Care (5900) job aid for additional information regarding guidelines and administration., Routine Given 08/17/2019 3:14 PM EST 20 mLs documented in this encounter Care Teams Facilities Operator Relationship Specialty Start Date End Date Jerzy Vidal MD [address] [place] [address] [place] [address] PCP - [facility] Medicine 12/04/18 documented as of this encounter
--- OUTSIDE RECORDS SUMMARY | 2024-02-24 01:23 | XMS_ITS | Encounter Summary ---
Author Organization [facility] [place] [address] Care Team Providers Care Dusting And Brushing Machine Operator Name Role Phone Jerzy Vidal MD Primary Care Provider Reason for Visit * Reason Onset Date Comments Labs Only 05/04/2019 Lab tracking Encounter Details Date Type Department Care Team (Late st Contact Info) Description 05/04/2019 Telephone Hematology Oncology at [address] [phone] Eden Vieira, RN Labs Only (Lab tracking) Social History Tobacco Use Types Packs/Day Years Used Date Smoking Tobacco: Never Smokeless Tobacco: Never Sex and Gender Information Value Date Recorded Sex Assigned at Not on file Gender Identity Not on file Sexual Orientation Not on file documented as of this encounter Miscellaneous Notes * Telephone Encounter - Eden Vieira, RN - 05/04/2019 8:40 AM EST LAB TRACKING Brayan Pierre [id number] DIAGNOSIS: Thymic cancer LABS ORDERED: cbc diff, cmp, mag MEDICATIONS: Sutent 25 mg PO daily for 14 days with 7 days off. Standing transfusion orders from PCP at [facility] Assessment/Plan: Labs given to be reviewed by Dr. Schneider. Labs again next week on Tuesday and hollie see Dr. Schneider on tuesday. She should be finishing up her sutent cycle this weekend. She is feeling well. Results for BRAYAN PIERRE ( ) as of 05/04/2019 08:43 Ref. Range 04/19/2019 00:00 04/26/2019 00:00 05/03/2019 00:00 WBC Unknown 3.0 2.5 2.8 Hemoglobin Unknown 9.2 9.1 9.5 Hematocrit Unknown 26.7 26.3 27.3 Platelets Unknown 93 86 93 Neutr Abs (ANC) Unknown 1.89 1.32 1.59 Potassium Unknown 3.7 BUN Unknown 9 12 12 Creatinine Unknown 0.60 0.70 0.60 Calcium Unknown 9.5 9.5 Magnesium Latest Units: mg/dL 1.3 1.1 1.2 Total Bilirubin Unknown 0.7 Alk Phos Unknown 54 52 51 AST Unknown 26 32 35 ALT Unknown 18 22 22 documented in this encounter Plan of Treatment Upcoming Encounters Date Type Department Care Team (Late st Contact Info) Description 02/24/2024 9:00 AM EDT Office Visit Hematology/Oncology at [address] [phone] Shon Schneider MD [facility] [place] [address] [address] HEMATOLOGY AND ONCOLOGY [place], [place] [id number] 02/24/2024 9:30 AM EDT Infusion Hematology Oncology at [address] [phone] 03/02/2024 11:00 AM EDT Office Visit Hematology/Oncology at [address] [phone] Shon Schneider MD [facility] [place] [address] [address] HEMATOLOGY AND ONCOLOGY [place], [place] [address] 03/02/2024 12:30 PM EDT Infusion Hematology Oncology at [address] [phone] 03/09/2024 10:00 AM EDT Office Visit Hematology/Oncology at [address] [phone] Shon Schneider MD [facility] [place] [address] Ciara Pitts [address] HEMATOLOGY [place] [address] 03/09/2024 10:30 AM EDT Infusion Hematology Oncology at [address] [phone] documented as of this encounter [...] Associated Diagnosis Comments CBC (WITH DIFF) Routine 05/03/2019 MAGNESIUM Routine 05/03/2019 COMPREHENSIVE METABOLIC PANEL Routine 05/03/2019 documented in this encounter Results * Magnesium (05/03/2019) Magnesium 1.2 mg/dL Blood specimen (specimen) 05/03/2019 Shon Schneider MD CHEMISTRY ORDERABLES * Comprehensive metabolic panel (non-fasting) (05/03/2019) Blood Urea Nitrogen 12 Creatinine 0.60 Potassium 3.7 Calcium 9.5 Bilirubin, Total 0.7 Alkaline Phosphatase 51 Aspartate Aminotransferase 35 Alanine Aminotransferase 22 Blood specimen (specimen) 05/03/2019 Shon Schneider MD CHEMISTRY ORDERABLES * CBC (with Diff) (05/03/2019) White Blood Cell 2.8 Hemoglobin 9.5 Hematocrit 27.3 Platelet 93 Neutrophil Absolute (ANC) - Automated 1.59 Blood specimen (specimen) 05/03/2019 Shon Schneider MD HEMATOLOGY ORDERABLE S documented in this encounter Visit Diagnoses Not on filedocumented in this encounter Care Teams Dusting And Brushing Machine Operator Relationship Specialty Start Date End Date Jerzy Vidal MD [address] [place] [address] [place] [address] PCP - [facility] Medicine 12/04/18 documented as of this encounter
--- OUTSIDE RECORDS SUMMARY | 2024-02-24 01:24 | XMS_ITS | Encounter Summary ---
Author Organization [facility] Address [facility] [place] [address] Care Team Providers Care Track Oiler Name Role Phone Jerzy Vidal MD Primary Care Provider [phone] Encounter Details Date Type Department Care Team (Late st Contact Info) Description 01/19/2019 2:30 PM EDT Office Visit Hematology/Oncology at [address] [phone] Shon Coates MD [facility] [place] [address] Thymic carcinoma; Hypomagnesemia Social History Tobacco Use Types Packs/Day Years Used Date Smoking Tobacco: Never Smokeless Tobacco: Never Sex and Gender Information Value Date Recorded Sex Assigned at Not on file Gender Identity Not on file Sexual Orientation Not on file documented as of this encounter Last Filed Vital Signs Vital Sign Reading Time Taken Comments Blood Pressure 139/76 01/19/2019 2:38 PM EDT Pulse 71 01/19/2019 2:38 PM EDT Temperature 37.1 ??C (98.8 ??F) 01/19/2019 2 :38 PM EDT Respiratory Rate 18 01/19/2019 2:38 PM EDT Oxygen Saturation 100% 01/19/2019 2:3 8 PM EDT Inhaled Oxygen Concentration - - Weight 122.2 kg (269 lb 6.4 oz) 01/19/2019 2:38 PM EDT Height 175.3 cm (5' 9.02) 01/19/2019 2 :38 PM EDT copied forward Body Mass Index 39.76 01/19/2019 2:38 PM EDT documented in this encounter Progress Notes * Shon Coates MD - 01/19/2019 2:30 PM EDT Subjective: Patient ID: Monica [...] pleural effusion with compression atelectasis. transferred to [facility] for further evaluation and [...] and Women's review - CONSULT SLIDES FROM [facility]; [place], [place]: A. MEDIASTINUM, MASS, BIOPSY ([id number]; 03/22/2017): ? 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 ?Immunohistochemistry performed at the outside institution and reviewed at [facility] demonstrates the following staining profile in lesional cells: ? Positive - AE1/AE3, p40, PAX8, CD117, CD5(multifocal), CK7(scattered cells), synaptophysin, chromogranin ? Negative - CK20, TTF-1, GATA3, CD34 ? The immunohistochemical profile supports the above diagnosis. ? Ki67 (MIB-1) proliferation index performed at the referring institution and reviewed at [facility] is focally up to ~30%. NOTE: While diffuse synaptophysin and chromogranin expression is unusual for conventional thymic carcinoma, the overall histomorphology and immunophenotype is most in keeping with THYMIC SQUAMOUS CARCINOMA.?The extent of PAX8 and CD117 staining would be unusual for Nut carcinoma. B. MEDIASTINUM, ANTERIOR, 4.5 CM, ULTRASOUND GUIDED FINED NEEDLE ASPIRATION ([id number]; 03/22/17): The cytologic preparations were not reviewed [...] Second opinion with Dr. Roddy Vega in [place]. They reviewed the pathology and concurred they [...] . She is feeling very well and is tolerating the sutent well. She is due to complete the two week course of sutent tomorrow. Her energy level and strength are good. No chest pain or SOB. No cough. Her bowels are regular, no diarrhea. Soc Hx: , lives in [place], [place] Tob - Never Etoh - rare [...] is normal. Vitals reviewed. Labs: WBC/ANC - 5.11/3819, Hgb/Hct - 10.3/31.3, Plts - 161,000. BUN/Cr - 14/0.6. Lytes and LFTs unremarkable. Mg - 1.1 TSH - 3.94; Free T4 - 1.01 Assessment and Plan: Ms. Jaramillo is a 63 yo female seen in f/u of thymic carcinoma, as summarized above. The diagnosis was made in 03/2017. She initially received therapy with carboplatin and etoposide and received 16 cycles. During the carboplatin [...] trying. I spoke with Dr. Vega at [facility]. There were no clinical trials available there. [...] mg/day, 2 weeks followed by one w resighini off, with cycles repeated every three weeks. [...] weeks on and 1 week off. She is finishing two weeks of therapy tomorrow. We will check labs in a week and, if adequate have her start the next cycle and see her in four weeks. The most recent restaging CT scan done on 12/19/18 was stable. The TFTs done 01/18/19 are WNL. Will have her continue the same dose of synthroid and recheck this a couple of months. Hypomagnesemia is an ongoing problem. She continues oral supplementation and last received this IV about two weeks ago. She does not have diarrhea and presumable the magnesium loss is renal. I spoke with Dr. Sheehan. His recommendation was to calculate the fractional excretion of magnesium. If greater than 2%, then one could try amiloride. We will have the necessary labs done nextweek and then make a decision about whether to try the amiloride. Foundation One testing. Per the report, there were 3 genomic findings but no therapies associated with potential clinical benefit. Of note, pembrolizumab is now included on the NCCN list of second line therapies with a note that, in this disease, there is a higher risk of serious immune related toxicity, including myocarditis. Addendum: received labs drawn 01/25. Calculated fractional excretion of magnesium is 3%. Therefore, will call her to discuss trying amiloride. Would start at low dose of 5 mg once per day and increaseif needed. documented in this encounter Miscellaneous Notes * Addendum Note - Shon Coates MD - 01/19/2019 2:30 PM EDTAddended by: SHON COATES on: 01/26/2019 12:30 PM Modules accepted: Orders documented in this encounter Plan of Treatment Upcoming Encounters Date Type Department Care Team (Late st Contact Info) Description 02/24/2024 9:00 AM EDT Office Visit Hematology/Oncology at [address] [phone] Shon Coates MD [facility] [place] [place] [address] [place] [address] 02/24/2024 9:30 AM EDT Infusion Hematology Oncology at [address] [phone] 03/02/2024 11:00 AM EDT Office Visit Hematology/Oncology at [address] [phone] Shon Coates MD [facility] [place] [address] [address] HEMATOLOGY AND ONCOLOGY [place], [place] [address] 03/02/2024 12:30 PM EDT Infusion Hematology Oncology at [address] [phone] 03/09/2024 10:00 AM EDT Office Visit Hematology/Oncology at [address] [phone] Shon Coates MD [facility] [place] [address] Ciara Pitts, [address] HEMATOLOGY AND ONCOLOGY [place], [place] [phone] 03/09/2024 10:30 AM EDT Infusion Hematology Oncology at [address] [phone] documented as of this encounter Goals Goal [...] Priority Date/Time Associated Diagnosis Comments LAB SCAN 02/15/2019 12:00 AM EDT LAB SCAN 02/15/2019 12:00 AM EDT LAB SCAN 02/08/2019 12:00 AM EDT LAB SCAN 02/01/2019 12:00 AM EDT LAB SCAN 01/25/2019 12:00 AM EDT LAB SCAN 01/25/2019 12:00 AM EDT documented in this encounter Results * SCAN DOC: LAB (02/15/2019 12:00 AM EDT) Narrative 02/15/2019 12:00 AM EDT Ordered by an unspecified provider. Scanning Provider MEDIA MGR SCAN EXT O RDR/RSLT * SCAN DOC: LAB (02/15/2019 12:00 AM EDT) Narrative 02/15/2019 12:00 AM EDT Ordered by an unspecified provider. Scanning Provider MEDIA MGR SCAN EXT O RDR/RSLT * SCAN DOC: LAB (02/08/2019 12:00 AM EDT) Narrative 02/08/2019 12:00 AM EDT Ordered by an unspecified provider. Scanning Provider MEDIA MGR SCAN EXT O RDR/RSLT * SCAN DOC: LAB (02/01/2019 12:00 AM EDT) Narrative 02/01/2019 12:00 AM EDT Ordered by an unspecified provider. Scanning Provider MEDIA MGR SCAN EXT O RDR/RSLT * SCAN DOC: LAB (01/25/2019 12:00 AM EDT) Narrative 01/25/2019 12:00 AM EDT Ordered by an unspecified provider. Scanning Provider MEDIA MGR SCAN EXT O RDR/RSLT * SCAN DOC: LAB (01/25/2019 12:00 AM EDT) Narrative 01/25/2019 12:00 AM EDT Ordered by an unspecified provider. Scanning Provider MEDIA MGR SCAN EXT O RDR/RSLT documented in this encounter Visit Diagnoses Diagnosis Thymic carcinoma Malignant neoplasm of thymus Hypomagnesemia Disorders of magnesium metabolism Thymic carcinoma Malignant neoplasm of thymus documented in this encounter Care Teams Track Oiler Relationship Specialty Start Date End Date Jerzy Vidal MD [address] [place] [address] [place] [address] PCP - [facility] Medicine 12/04/18 documented as of this encounter
--- OUTSIDE RECORDS SUMMARY | 2024-02-24 01:24 | XMS_ITS | Encounter Summary ---
Author Organization [facility] Address [facility] [place] [address] Care Team Providers Care Shaft Tender Name Role Phone Gloria Red MD Primary Care Provider [phone] Encounter Details Date Type Department Care Team (Late st Contact Info) Description 11/09/2018 Orders Only Hematology/Oncology at [address] [phone] Lashawn Skelton RN Hypothyroidism (acquired) Social History Tobacco Use Types [...] AM EDT Office Visit Hematology/Oncology at [address] [phone] Shon Schneider MD [facility] [place] [address] Ciara Pitts APRN [address] [place] [address] DR HEMATOLOGY AND ONCOLOGY [place], [place] [id number] 02/24/2024 9:30 AM EDT Infusion Hematology Oncology at [address] [phone] 03/02/2024 11:00 AM EDT Office Visit Hematology/Oncology at [address] [phone] Shon Schneider MD [facility] [place] [address] [address] HEMATOLOGY AND ONCOLOGY [place], [place] [address] 03/02/2024 12:30 PM EDT Infusion Hematology Oncology at [address] [phone] 03/09/2024 10:00 AM EDT Office Visit Hematology/Oncology at [address] [phone] Shon Schneider MD [facility] [place] [address] [address] HEMATOLOGY AND ONCOLOGY [place], [place] [phone] 03/09/2024 10:30 AM EDT Infusion Hematology Oncology at [address] [phone] documented as of this encounter Goals Goal [...] as of this encounter Visit Diagnoses Diagnosis Hypothyroidism (acquired) Unspecified hypothyroidism Thymic carcinoma Malignant neoplasm of thymus documented in this encounter Care Teams Shaft Tender Relationship Specialty Start Date End Date Gloria Red MD [address] [place] [address] [place] [phone] PCP - General Family Medicine 05/26/17 12/03/18 documented as of this encounter
--- OUTSIDE RECORDS SUMMARY | 2024-02-24 01:24 | XMS_ITS | Encounter Summary ---
Author Organization [facility] [place] [address] Care Team Providers Care Chief Security Officer Name Role Phone Gloria Red MD Primary Care Provider [phone] Reason for Visit * Reason Onset Date Comments Labs Only 10/27/2018 lab tracking Encounter Details Date Type Department Care Team (Late st Contact Info) Description 10/27/2018 Telephone Hematology/Oncology at [address] [phone] Brionna Andrade RN Labs Only (lab tracking) Social History Tobacco Use Types Packs/Day Years Used Date Smoking Tobacco: Never Smokeless Tobacco: Never Sex and Gender Information Value Date Recorded Sex Assigned at Not on file Gender Identity Not on file Sexual Orientation Not on file documented as of this encounter Miscellaneous Notes * Telephone Encounter - Brionna Andrade RN - 10/27/2018 11:25 AM EDT LAB TRACKING Brayan Ella 1955 [id number] DIAGNOSIS: Thymic cancer LABS ORDERED: cbc diff, bmp, magnesium, MEDICATIONS: Sutent 37.5 mg daily 2 weeks on, 1 weeks off (ordered through Replaced By [facility] special[facility] pharmacy fax [phone], phone Assessment/Plan: Brayan Curran NP in clinic today. Pt will start Sutent 37.5 mg on TuesdayOctober 29. TSH up so pt will start levothyroxine 25 mcg daily. Continue weekly labs on , review with Dr. Schneider or Desire Curran Ent Consultant on fridays. Results for BRAYAN PIERRE ( ) as of 10/27/2018 11:25 Ref. Range 10/12/2018 00:00 10/19/2018 00:00 10/26/2018 00:00 WBC Unknown 2.4 4.5 4.1 RBC Unknown 2.22 2.34 Hemoglobin Unknown 8.8 9.2 9.2 Hematocrit Unknown 25.6 27.1 27.0 Platelets Unknown 70 79 73 Neutr Abs (ANC) Unknown 1.3 2.88 2.44 Sodium Unknown 137 138 Potassium Unknown 3.7 3.8 Chloride Unknown 97 96 CO2 Unknown 31 30 BUN Unknown 15 9 Creatinine Unknown 0.7 0.60 Calcium Unknown 10.1 9.2 Magnesium Latest Units: mg/dL 1.1 (A) 1.3 (A) 1.3 TSH Unknown 19.3 documented in this encounter Plan of Treatment Upcoming Encounters Date Type Department Care Team (Late st Contact Info) Description 02/24/2024 9:00 AM EDT Office Visit Hematology/Oncology at [address] [phone] Shon Schneider MD [facility] [place] [address] Ciara Pitts GANG HEAD SAW OPERATOR [address] [place] [address] DR HEMATOLOGY AND ONCOLOGY [place], [place] [id number] 02/24/2024 9:30 AM EDT Infusion Hematology Oncology at [address] [phone] 03/02/2024 11:00 AM EDT Office Visit Hematology/Oncology at [address] [phone] Shon Schneider MD [facility] [place] [address] [address] [place] [address] 03/02/2024 12:30 PM EDT Infusion Hematology Oncology at [address] [phone] 03/09/2024 10:00 AM EDT Office Visit Hematology/Oncology at [address] [phone] Shon Schneider MD [facility] [place] [address] [place] [address] 03/09/2024 10:30 AM EDT Infusion Hematology Oncology at [address] [phone] documented as of this encounter [...] Associated Diagnosis Comments CBC (WITH DIFF) Routine 10/26/2018 documented in this encounter Results * CBC (with Diff) (10/26/2018) White Blood Cell 4.1 Hemoglobin 9.2 Hematocrit 27.0 Platelet 73 Neutrophil Absolute (ANC) - Automated 2.44 Magnesium 1.3 mg/dL Thyroid Stimulating Hormone 19.3 Blood specimen (specimen) 10/26/2018 Historical Provider HEMATOLOGY ORDERA BLES documented in this encounter Visit Diagnoses Not on filedocumented in this encounter Care Teams Chief Security Officer Relationship Specialty Start Date End Date Gloria Red MD [address] [place] [address] [place] [phone] PCP - General Family Medicine 05/26/17 12/03/18 documented as of this encounter
--- OUTSIDE RECORDS SUMMARY | 2024-02-24 01:24 | XMS_ITS | Encounter Summary ---
Author Organization [facility] [place] [address] Care Team Providers Care Security Compliance Engineer Name Role Phone Jerzy Vidal MD Primary Care Provider [phone] Reason for Visit * Reason Onset Date Comments Labs Only 02/02/2019 Lab Tracking Encounter Details Date Type Department Care Team (Late st Contact Info) Description 02/02/2019 Telephone Hematology/Oncology at [address] [phone] Boaz Amos, RN Labs Only (Lab Tracking) Social History Tobacco Use Types Packs/Day Years Used Date Smoking Tobacco: Never Smokeless Tobacco: Never Sex and Gender Information Value Date Recorded Sex Assigned at Not on file Gender Identity Not on file Sexual Orientation Not on file documented as of this encounter Miscellaneous Notes * Telephone Encounter - Boaz Amos, RN - 02/02/2019 2:18 PM EDT LAB TRACKING Brayan Pierre [id number] 1955 DIAGNOSIS: thymic cancer LABS ORDERED: cbc diff, cmp, mag MEDICATIONS: Sutent Standing transfusion orders from PCP at [facility] Assessment/Plan: Labs reviewed by Dr Schneider. Pt can continue Sutent. Pt also had started Amiloride 2.5 mg (1/2 pill) daily, been almost a week on it. She reports she had been feeling the symptoms of low magnesium so did go to [facility]TC for [address] gm Magn[address] this morning. Dr Schneider made aware and he wants Pt to increase Amiloride to 5 mg daily. Pt reports increased nocturia and advised to take it in the morning. Pt is in agreement with plan. Will check labs again next and review with Dr Schneider. Results for BRAYAN PIERRE ( ) as of 02/02/2019 14:21 Ref. Range 11/02/2018 00:00 11/23/2018 00:00 11/30/2018 00:00 12/07/2018 00:00 12/19/2018 11:05 02/01/201900:00 WBC Unknown 2.4 1.8 1.7 3.4 4.6 3.1 RBC Latest Ref Range: 4.00 - 5.21 x10(6)/mcL 2.11 2.16 (L) Hemoglobin Unknown 8.5 7.4 7.4 8.4 8.0 (L) 10.1 Hematocrit Unknown 25.1 22.6 22.5 25.9 24.8 (L) 30.4 MCV Latest Ref Range: 82.6 - 94.4 fL 114.8 (H) MCH Latest Ref Range: 27.1 - 32.0 pg 37.0 (H) MCHC Latest Ref Range: 31.7 - 35.0 gm/dL 32.3 RDWSD Latest Ref Range: 37.0 - 46.0 fL 84.6 (H) RDWCV Latest Ref Range: 11.5 - 14.1 % 20.7 (H) Platelets Unknown 62 54 61 117 158 105 MPV Latest Ref Range: 7.6 - 12.9 fL 10.4 nRBC % Auto Latest Units: % 0.0 nRBC Abs Auto Latest Ref Range: 0.000 - 0.000 x10(3)/mcL 0.000 Neutr Abs (ANC) Unknown 1.54 0.93 0.78 2.37 3.00 1.92 Neutrophils % Latest Units: % 66.0 Immature Gran % Latest Units: % 0.40 Lymphocytes % Latest Units: % 16.5 Monocytes % Latest Units: % 15.8 Eosinophils % Latest Units: % 1.1 Basophils % Latest Units: % 0.2 [place] Gran Abs Latest Ref Range: 0.00 - 0.04 x10(3)/mcL 0.02 Lymphocytes Abs Latest Ref Range: 0.9 - 3.2 x10(3)/mcL 0.8 (L) Monocyte Abs Latest Ref Range: 0.3 - 0.9 x10(3)/mcL 0.7 Eosinophils Abs Latest Ref Range: 0.0 - 0.4 x10(3)/mcL 0.0 Basophils Abs Latest Ref Range: 0.0 - 0.1 x10(3)/mcL 0.0 Sodium Latest Ref Range: 135 - 145 mmol/L 138 138 143 Potassium Latest Ref Range: 3.5 - 5.0 mmol/L 3.8 3.7 3.7 Chloride Latest Ref Range: 98 - 107 mmol/L 100 102 CO2 Latest Ref Range: 22 - 31 mmol/L 28 Anion Gap Latest Ref Range: 5 - 15 mmol/L 13 BUN Unknown 15 12 10 11 Creatinine Unknown 0.70 0.50 0.62 (L) 0.50 eGFR Latest Ref Range: >=60 mL/min/1.73 m?? 97 eGFR Latest Ref Range: >=60 mL/min/1.73 m?? 113 Glucose Lvl Latest Ref Range: 65 - 199 mg/dL 124 118 Calcium Latest Ref Range: 8.5 - 10.5 mg/dL 10.2 9.6 9.6 Magnesium Latest Units: mg/dL 1.1 (L) 1.4 0.68 (L) 1.1 documented in this encounter Plan of Treatment Upcoming Encounters Date Type Department Care Team (Late st Contact Info) Description 02/24/2024 9:00 AM EDT Office Visit Hematology/Oncology at [address] [phone] Shon Schneider MD [facility] [place] [address] Ciara Pitts APRN [address] [place] [address] DR HEMATOLOGY AND ONCOLOGY [place], [place] [phone] 02/24/2024 9:30 AM EDT Infusion Hematology Oncology at [address] [phone] 03/02/2024 11:00 AM EDT Office Visit Hematology/Oncology at [address] [phone] Shon Schneider MD [facility] [place] [address] HEMATOLOGY [place] [address] 03/02/2024 12:30 PM EDT Infusion Hematology Oncology at [address] [phone] 03/09/2024 10:00 AM EDT Office Visit Hematology/Oncology at [address] [phone] Shon Schneider MD [facility] [place] [address] Ciara Pitts, [address] HEMATOLOGY [place] [address] 03/09/2024 10:30 AM EDT Infusion Hematology Oncology at [address] [phone] documented as of this encounter Goals Goal [...] Associated Diagnosis Comments CBC (WITH DIFF) Routine 02/01/2019 MAGNESIUM Routine 02/01/2019 COMPREHENSIVE METABOLIC PANEL Routine 02/01/2019 documented in this encounter Results * Magnesium (02/01/2019) Magnesium 1.1 mg/dL Blood specimen (specimen) 02/01/2019 Shon Schneider MD CHEMISTRY ORDERABLES * Comprehensive metabolic panel (non-fasting) (02/01/2019) Blood Urea Nitrogen 11 Creatinine 0.50 Blood specimen (specimen) 02/01/2019 Shon Schneider MD CHEMISTRY ORDERABLES * CBC (with Diff) (02/01/2019) White Blood Cell 3.1 Hemoglobin 10.1 Hematocrit 30.4 Platelet 105 Neutrophil Absolute (ANC) - Automated 1.92 Blood specimen (specimen) 02/01/2019 Shon Schneider MD HEMATOLOGY ORDERABLE S documented in this encounter Visit Diagnoses Not on filedocumented in this encounter Care Teams Security Compliance Engineer Relationship Specialty Start Date End Date Jerzy Vidal MD [address] [place] [address] [place] [address] PCP - [facility] Medicine 12/04/18 documented as of this encounter
--- OUTSIDE RECORDS SUMMARY | 2024-02-24 01:24 | XMS_ITS | Encounter Summary ---
Author Organization [facility] Address [facility] [place] [address] Care Team Providers Care Site Damage Prevention Technician Name Role Phone Jerzy Vidal MD Primary Care Provider Reason for Visit * Reason Comments Follow-up * Consultation (Routine) - Closed Specialty Diagnoses / Procedures Referred By Franklyn del rio Referred To Contact Hematology and Oncology Diagnoses Thymic carcinoma Pancytopenia Shon Schneider MD [facility] [place] [address] So Gaytan MD [facility] [address] [place] [address] Referral ID Status Reason Start Date Expiration Date V isits Requested Visits Authorized [id number] Closed Consult, Test & Treat 11/30/2018 11/30/2019 1 1 Encounter Details Date Type Department Care Team (Late st Contact Info) Description 12/04/2018 2:00 PM EDT Office Visit [place]ematology [place] [address] So Gaytan MD [facility] [place] [address] Chronic atrial fibrillation; Hypothyroidism due to medication Social History Tobacco Use Types Packs/Day Years Used Date Smoking Tobacco: Never Smokeless Tobacco: Never Sex and Gender Information Value Date Recorded Sex Assigned at Not on file Gender Identity Not on file Sexual Orientation Not on file documented as of this encounter Last Filed Vital Signs Vital Sign Reading Time Taken Comments Blood Pressure 111/62 12/04/2018 1:57 PM EDT Pulse 74 12/04/2018 1:57 PM EDT Temperature 36.7 ??C (98.1 ??F) 12/04/2018 1:57 PM ED T Respiratory Rate 16 12/04/2018 1:57 PM EDT Oxygen Saturation 97% 12/04/2018 1:57 PM EDT Inhaled Oxygen Concentration - - Weight 123.8 kg (273 lb) 12/04/2018 1:57 PM EDT Height 176 cm (5' 9.29) 12/04/2018 1:57 PM EDT Body Mass Index 39.98 12/04/2018 1:57 PM EDT documented in this encounter Progress Notes * So Gaytan MD - 12/04/2018 2:00 PM EDT [place] [address] NEW PATIENT EVALUATION Patient Active Problem List Diagnosis ??? Pancytopenia ??? Atrial fibrillation Treated with metoprolol, diltiazem, eliquist ??? Essential hypertension ??? 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 Thymic carcinoma HISTORY OF PRESENT ILLNESS: Patient prefers to be called: Monica Support person(s) : , Royce It was my pleasure to meet Monica Alonsoll today. Monica Pierre is a 63 y.o. year old female being seen for evaluation of pancytopenia. she is referred in consultaion from Dr Schneider. Dr. Schneider kindly introduced Kaley to me through a discussion. 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 She was diagnosed in March 2017 and initially treated with carboplatin and Taxol. She received 15 or 16 cycles. She was cared for by Dr. White until April 2018 when her care was transferred to Dr. Schneider due to Dr. White's departure. At that time she was having trouble with count recovery and needed at least one blood transfusion. Carbo/Taxol was discontinued due to both low counts and an infusional reactionwith the last cycle. Counts remain low but did improve off of chemotherapy. In June 2018 Sutent was started at a dose of 50 mg/day x 4 weeks then 2 weeks off. She had significant thrombocytopenia (collin of about 30,000) as well as low WBC/ANC which delayed therapy. The counts did recover (platelets were up to 130,000 and ANC also improved). Her Sutent was then decreased to 37.5 mg/day x 2 weeks with 1 week off. Despite the dose reduction, she continued to have problems with her counts and delays in her treatment. Last week her labs showed an ANC of less than 1000 with a hemoglobin of 7.4 and platelets of 60,000. The question is now risen whether she may have a primary bone marrow disorder such as MDS, or other. Although thymoma is associated with aplastic anemia, this is actually not a thymoma, but rather thymic carcinoma, a different entity. She is asymptomatic and I feel so good. No bruising or bleeding. When on carbo/taxol she would get tired but not now. PMHX: Only Problem List PSHX: Ruptured Appy Encarcerated hernia repair ROS Energy level: less stamina then before chemo Pain: No Appetite:good Fevers/chills/sweats:No Bruising/bleeding/melena:None Recent infections:No Headaches:neg Vision:neg Hearing:neg Sinus: neg Seasonal Allergies: neg Mouth sores:neg Dentition: Good Swallowing: neg GERD : neg Nausea/vomiting: neg diarrhea/constipation:No SOB/VASQUEZ/pulmonary sx: no chest pain:No sx: negative Change in adenopathy or other masses:No Unexpected weight loss or gain:No Skin rashes or petechiae:No Musculoskeletal complaints:No Extremities: Negative upper and lower bilaterally Neurologic symptoms: in feet and tips of fingers of L hand. Mental Status changes: neg Mood: Normal Sleep: some difficulty sleeping; b/c she thinks a lot (since menopause) MEDS: Outpatient Medications Marked as Taking for the 12/04/18 encounter (Office Visit) with So Gaytan MD Medication Sig Dispense Refill ??? levothyroxine (SYNTHROID) 25 mcg Tablet Take 1 tablet by mouth daily. 90 tablet 3 ??? potassium chloride (K-DUR/KLOR-CON) 20 mEq Tab Sust.Rel. Particle/Crystal Take 20 mEq by mouth daily. Indications: hypokalemia prevention ??? magnesium oxide (MAG-OX) 400 mg Tablet Take 400 mg by mouth 2 times daily. Indications: hypomagnesemia ??? [DISCONTINUED] albuterol 90 mcg/actuation HFA Aerosol Inhaler Inhale 2 puffs into the lungs every 4 hours as needed for Wheezing. Use with spacer ??? acetaminophen (TYLENOL) 500 mg Tablet Take 1,000 mg by mouth every 6 hours as needed for Pain. ??? ascorbic acid, vitamin C, (VITAMIN C) 500 mg Tablet, Chewable Take 1 tablet by mouth daily. ??? meTOPROLOL succinate (TOPROL-XL) 200 mg Tablet [...] Tablet Take 1 tablet by mouth daily. Allergies: Allergies Allergen Reactions ??? Carboplatin ??? Penicillins Hives ??? Pollen Extracts Other (See Comments) rhinorrhea FAMILY HISTORY: Mother: colon CA Father: Alzheimers Sibs: 3 older sibs; one w/ heart valve replacemetn Children: 2 children Other: negative SOCIAL HISTORY Personal: to , Royce. 2 children and 4 grandchildren. 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 ETOH: rare now Smoking: never Marijuana or illicit drug use: none HIPPA Contact Permission: OK to talk to Royce and daughter Cass Fong OK to leave message on home or cell phone: prefers home OK to leave medical information on home or cell phone: home PHYSICAL EXAM BP 111/62 (Patient Position: Sitting) Pulse 74 Temp 36.7 ??C (98.1 ??F) (Temporal) Resp 16 Ht 176 cm (5' 9.29) Wt 123.8 kg (273 lb) SpO2 97% BMI 39.98 kg/m?? Body surface area is 2.46 meters squared. GENERAL: Monica Pierre appears well and is in no acute distress. ENT: Oral pharynx clear. EYES: FATEMEH NECK: Supple without adenopathy. AXILLARY: no adenopathy INGUINAL LN: no adenopathy OTHER LYMPH: no adenopathy CARDIAC: Regular rate and rhythm without S3,S4 or murmurs. LUNGS: Clear to auscultation./percussion ABDOMEN: Soft and non-tender without hepatosplenomegaly or masses. EXTREMITIES: No cyanosis, clubbing, edema or calf tenderness. SKIN: No bruises or petechiae. NEUROLOGICAL: Alert and oriented to person, place and time. MUSCULOSKELETAL: No spinal or chest wall tenderness. LABORATORY STUDIES No results found for this or any previous visit (from the past 72 hour(s)). Results for MONICA PIERRE ( ) as of 12/04/2018 14:41 Ref. Range 10/26/2018 00:00 11/02/2018 00:00 11/23/2018 00:00 11/30/2018 00:00 WBC Unknown 4.1 2.4 1.8 1.7 RBC Unknown 2.11 Hemoglobin Unknown 9.2 8.5 7.4 7.4 Hematocrit Unknown 27.0 25.1 22.6 22.5 Platelets Unknown 73 62 54 61 Neutr Abs (ANC) Unknown 2.44 1.54 0.93 0.78 Sodium Unknown 138 Potassium Unknown 3.8 BUN Unknown 15 Creatinine Unknown 0.70 Calcium Unknown 10.2 Magnesium Latest Units: mg/dL 1.3 1.1 (L) Total Bilirubin Unknown 1.0 Alk Phos Unknown 50 AST Unknown 35 ALT Unknown 10 (<) TSH Unknown 19.3 RADIOLOGY STUDIES REVIEWED: None ASSESSMENT/PLAN: This is a 63-year-old woman with an unresectable thymic carcinoma who is being referred for progressive pancytopenia. She was initially treated with carboplatin and Taxol for over a year. Eventually she developed some cytopenias. She was then switched to sunitinib. Sunitinib (sutent) is a targeted therapy and is a receptor protein-tyrosine kinase inhibitor. It inhibits the actions of vascular endothelial growth factor (VEGF) and is an angiogenesis inhibitor. Ultimately, despite dose reductions,she developed persistent cytopenias. She has now been off of thesunitinib for 3 to 4 weeks, withoutcounts recovery. She is now referred for consideration of a bone marrow biopsy to determine if there is an underlying hematopoietic disorder that may be contributing to the persistent pancytopenia. Otherwise, Monica feels great and looks great. She remains relatively asymptomatic. I explained the need for a BMBx. I reviewed the procedure and risks of pain, bleeding and infectionalthough the latter 2 are unusual. All questions were answered. she and her consent to treatment. Monica would like some gentle sedation with the procedure. She did have a procedure at [facility] where she states she thinks she got fentanyl and had hallucinations. She is not entirely sure of which drug overdose she had. She did have conscious sedation also at [facility] when her Mediport was placed and she said she tolerated that well and would like a similar regimen. She is going to try to call [facility] to see what she was given to help our anesthesiologists. Monica inquired as to the differential diagnosis and asked me to write down information. I did writedown the diagnosis of myelodysplastic syndrome, but emphasized that it is not clear at all that shehas this, and the reading about it on the intermittent at would be premature and much of the information may not apply to her. Monica would like to coordinate the bone marrow biopsy on the same day as her appointment with Dr. Schneider and his plan to CAT scan if appropriate. This would save her trip. I will reach out to him andsee what his plans were and whether this is possible. It was a pleasure to meet this pleasant 63-year-old female and I am happy to help coordinate a bonemarrow biopsy for her. I told her we will call her with the results and after that determine whether ongoing follow-up with is necessary with hematology or whether she can return to the care of Dr. Roberto Schneider. I discussed all of the above with the patient and all of her questions were answered. Support and counseling given as appropriate. This note was written or modified using [employer] voice recognition software. The final note was screened for mistakes. Please excuse any remaining errors. total time: time in counselling: Copy Jerzy Vidal MD . documented in this encounter Plan of Treatment Upcoming Encounters Date Type Department Care Team (Late st Contact Info) Description 02/24/2024 9:00 AM EDT Office Visit Hematology/Oncology at [address] [phone] Shon Schneider MD [facility] [place] [address] [address] HEMATOLOGY AND ONCOLOGY [place], [place] [phone] 02/24/2024 9:30 AM EDT Infusion Hematology Oncology at [address] [phone] 03/02/2024 11:00 AM EDT Office Visit Hematology/Oncology at [address] [phone] Shon Schneider MD [facility] [place] [address] [address] [place] [address] 03/02/2024 12:30 PM EDT Infusion Hematology Oncology at [address] [phone] 03/09/2024 10:00 AM EDT Office Visit Hematology/Oncology at [address] [phone] Shon Schneider MD [facility] [place] [address] [address] HEMATOLOGY AND ONCOLOGY [place], [place] [phone] 03/09/2024 10:30 AM EDT Infusion Hematology Oncology at [address] [phone] documented as of this encounter Goals Goal Patient Goal Type Associated Problems Recent Progress Patient-Stated? Author DH Home Medication Compliance and Understanding Patient Facing Action Plan On track( 019 3:22 PM EST) No Ivana Vanegas, [facility] Note: Remain 95% or better adherent to chemotherapy without severe side effects as assessed by days supply and patient reported adverse events at each refill documented as of this encounter Procedures Procedure Name Priority Date/Time Associated Diagnosis Comments LAB SCAN 12/15/2018 12:00 AM EDT LAB SCAN 12/15/2018 12:00 AM EDT LAB SCAN 12/07/2018 12:00 AM EDT documented in this encounter Results * SCAN DOC: LAB (12/15/2018 12:00 AM EDT) Narrative 12/15/2018 12:00 AM EDT Ordered by an unspecified provider. Scanning Provider MEDIA MGR SCAN EXT O RDR/RSLT * SCAN DOC: LAB (12/15/2018 12:00 AM EDT) Narrative 12/15/2018 12:00 AM EDT Ordered by an unspecified provider. Scanning Provider MEDIA MGR SCAN EXT O RDR/RSLT * SCAN DOC: LAB (12/07/2018 12:00 AM EDT) Narrative 12/07/2018 12:00 AM EDT Ordered by an unspecified provider. Scanning Provider MEDIA MGR SCAN EXT O RDR/RSLT documented in this encounter Visit Diagnoses Diagnosis Chronic atrial fibrillation Atrial fibrillation Hypothyroidism due to medication Thymic carcinoma Malignant neoplasm of thymus documented in this encounter Care Teams Site Damage Prevention Technician Relationship Specialty Start Date End Date Jerzy Vidal MD [address] [place] [address] [place] [address] PCP - [facility] 12/04/18 documented as of this encounter
--- OUTSIDE RECORDS SUMMARY | 2024-02-24 01:24 | XMS_ITS | Encounter Summary ---
Author Organization [facility] Address [facility] [place] [address] Care Team Providers Care Nougat Cutter Machine Name Role Phone Jerzy Vidal MD Primary Care Provider [phone] Reason for Referral * Diagnostic Test (Routine) - Closed Specialty Diagnoses / Procedures Referred By Franklyn del rio Referred To Contact Radiology Diagnoses Thymic carcinoma Procedures CT Chest Abdomen Pelvis w Contrast (Generic) Shon Schneider MD [facility] [place] [address] [facility] [place] [address] Referral ID Status Reason Start Date Expiration Date V isits Requested Visits Authorized [id number] Closed Specialty Service Requested 03/22/2019 06/20/2019 1 1 Encounter Details Date Type Department Care Team (Late st Contact Info) Description 02/16/2019 10:30 AM EDT Office Visit Hematology/Oncology at [address] [phone] Shon Schneider MD [facility] [place] [address] Thymic carcinoma; Hypothyroidism, acquired Social History Tobacco Use Types Packs/Day Years Used Date Smoking Tobacco: Never Smokeless Tobacco: Never Sex and Gender Information Value Date Recorded Sex Assigned at Not on file Gender Identity Not on file Sexual Orientation Not on file documented as of this encounter Last Filed Vital Signs Vital Sign Reading Time Taken Comments Blood Pressure 134/63 02/16/2019 10:31 AM EDT Pulse 67 02/16/2019 10:31 AM EDT Temperature 37 ??C (98.6 ??F) 02/16/2019 10:31 AM EDT Respiratory Rate 18 02/16/2019 10:31 AM EDT Oxygen Saturation 99% 02/16/2019 10:31 AM EDT Inhaled Oxygen Concentration - - Weight 123.8 kg (273 lb) 02/16/2019 10:31 AM EDT Height 175.3 cm (5' 9.02) 02/16/2019 10:31 AM E DT Body Mass Index 40.3 02/16/2019 10:31 AM EDT documented in this encounter Progress Notes * Shon Schneider MD - 02/16/2019 10:30 AM EDT Subjective: Patient ID: Monica [...] pleural effusion with compression atelectasis. transferred to [facility] for further evaluation and workup and [...] B. 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 [facility] review - CONSULT SLIDES FROM ; [place], [place]: A. MEDIASTINUM, MASS, BIOPSY ([id number]; 03/22/2017): ? MALIGNANT THYMIC EPITHELIAL NEOPLASM consistent [...] 4.5 CM, ULTRASOUND GUIDED FINED NEEDLE ASPIRATION ([id number]; 03/22/17): The cytologic preparations were not reviewed [...] opinion with Dr. Roddy Vega in [place]. They reviewed the pathology and concurred they [...] . She continues to feel generally well. Shehas been taking amiloride for the hypomagnesemia. She seems to be tolerating it well. She has been checking her BP at home and on a couple of occasions the SBP was < 100 and she felt a little weak. Otherwise it has been ok. No chest pain or SOB. Her energy level and strength are good. No chest pain or SOB. No cough. Her bowels are regular, no diarrhea. Soc Hx: , lives in [place], [place] Tob - Never Etoh - rare [...] is normal. Vitals reviewed. Labs: WBC/ANC - 3.01/2390, Hgb/Hct - 10.7/31.8, Plts - 108,000. BUN/Cr - 13/0.7. Lytes and LFTs unremarkable. Mg - 1.4 TSH - 3.79 Assessment and Plan: Ms. Jaramillo is a [...] I spoke with Dr. Vega at [facility]. There were no clinical trials available [...] mg/day, 2 weeks followed by one w ekwok off, with cycles repeated every three weeks. [...] fortwo weeks on and 1 week off. Her counts have been adequate and she has been able to stay on this schedule. She will start the next cycle on 02/17/19 and we will see her in three weeks. The most recent restaging CT scan done on 12/19/18 was stable. We will plan the next CT scan in about6 weeks, ie in late March. The TSH done 02/15/19 is WNL. Will have her continue the same dose of synthroid and recheck this a couple of months. 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 She had an elevated fractional excretionof magnesium and therefore in 01/2019 was started on amiloride which appears to be helping. [facility] testing. Per the report, there [...] AM EDT Office Visit Hematology/Oncology at [address] [phone] Shon Schneider MD [facility] [place] [address] Ciara Pitts APRN [address] [place] [address] [place] [address] 02/24/2024 9:30 AM EDT Infusion Hematology Oncology at [address] [phone] 03/02/2024 11:00 AM EDT Office Visit Hematology/Oncology at [address] [phone] Shon Schneider MD [facility] [place] [place] [address] Ciara Pitts APRN [address] HEMATOLOGY AND ONCOLOGY [place], [place] [id number] 03/02/2024 12:30 PM EDT Infusion Hematology Oncology at [address] [phone] 03/09/2024 10:00 AM EDT Office Visit Hematology/Oncology at [address] [phone] Shon Schneider MD [facility] [place] [address] [address] HEMATOLOGY AND ONCOLOGY [place], [place] [phone] 03/09/2024 10:30 AM EDT Infusion Hematology Oncology at [address] [phone] documented as of this encounter [...] Priority Date/Time Associated Diagnosis Comments LAB SCAN 03/08/2019 12:00 AM EDT LAB SCAN 03/08/2019 12:00 AM EDT LAB SCAN 03/01/2019 12:00 AM EDT documented in this encounter Results * CT Chest Abdomen Pelvis w Contrast [...] report, please contact the number below. ? Electronically signed by: Roddy Marinelli [facility] ([phone]), at 04/04/2019 11:05 AM Narrative 04/04/2019 11:05 AM EDT EXAMINATION: CT [...] below. Shon Schneider MD IMG CT ORDERABLES * SCAN DOC: LAB (03/08/2019 12:00 AM EDT) Narrative 03/08/2019 12:00 AM EDT Ordered by an unspecified provider. Scanning Provider MEDIA MGR SCAN EXT O RDR/RSLT * SCAN DOC: LAB (03/08/2019 12:00 AM EDT) Narrative 03/08/2019 12:00 AM EDT Ordered by an unspecified provider. Scanning Provider MEDIA MGR SCAN EXT O RDR/RSLT * SCAN DOC: LAB (03/01/2019 12:00 AM EDT) Narrative 03/01/2019 12:00 AM EDT Ordered by an unspecified provider. Scanning Provider MEDIA MGR SCAN EXT O RDR/RSLT documented in this encounter Visit Diagnoses Diagnosis Thymic carcinoma Malignant neoplasm of thymus Hypothyroidism, acquired Unspecified hypothyroidism 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 documented in this encounter Care Teams Nougat Cutter Machine Relationship Specialty Start Date End Date Jerzy Vidal MD [address] [place] [address] [place] [address] PCP - [facility] 12/04/18 documented as of this encounter
--- OUTSIDE RECORDS SUMMARY | 2024-02-24 01:24 | XMS_ITS | Encounter Summary ---
Author Organization [facility] Address [facility] [place] [address] Care Team Providers Care Packing Attendant Name Role Phone Jerzy Vidal MD Primary Care Provider [phone] Encounter Details Date Type Department Care Team (Late Contact Info) Description 01/05/2019 Notes Only Hematology Oncology at [address] [phone] Beti Celeste RN Social History Tobacco Use Types Packs/Day Years Used Date Smoking Tobacco: Never Smokeless Tobacco: Never Sex and Gender Information Value Date Recorded Sex Assigned at Not on file Gender Identity Not on file Sexual Orientation Not on file documented as of this encounter Progress Notes * Beti Celeste I RN - 01/05/2019 3:23 PM EDT [place] medical evaluation progressreport application for [employer] jad complete and signed by Daryl Godoy and sent to [employer] motor vehicles. documented in this encounter Plan of Treatment Upcoming Encounters Date Type Department Care Team (Late Contact Info) Description 02/24/2024 9:00 AM EDT Office Visit Hematology/Oncology at [address] [phone] Shon Schneider MD [facility] [place] [address] HEMATOLOGY AND ONCOLOGY [place], [place] [address] 02/24/2024 9:30 AM EDT Infusion Hematology Oncology at [address] [phone] 03/02/2024 11:00 AM EDT Office Visit Hematology/Oncology at [address] [phone] 92 Shon Schneider MD [facility] [place] [address] HEMATOLOGY AND ONCOLOGY [place], [place] [address] 03/02/2024 12:30 PM EDT Infusion Hematology Oncology at [address] [phone] 03/09/2024 10:00 AM EDT Office Visit Hematology/Oncology at [address] [phone] 02 Shon Schneider MD [facility] [place] [address] HEMATOLOGY AND ONCOLOGY [place], [place] [address] 03/09/2024 10:30 AM EDT Infusion Hematology Oncology at [address] [phone] documented as of this encounter Goals Goal [...] on filedocumented in this encounter Care Teams Packing Attendant Relationship Specialty Start Date End Date Jerzy Vidal MD [address] [place] [address] [place] [address] PCP - [facility] 12/04/18 documented as of this encounter
--- OUTSIDE RECORDS SUMMARY | 2024-02-24 01:24 | XMS_ITS | Encounter Summary ---
Author Organization [facility] [place] [address] Care Team Providers Care Manager Heart Name Role Phone Gloria Red MD Primary Care Provider Reason for Visit * Reason Onset Date Comments Labs Only 11/30/2018 lab tracking Encounter Details Date Type Department Care Team (Late st Contact Info) Description 11/30/2018 Telephone Hematology/Oncology at [address] [phone] Brionna Andrade RN Labs Only (lab tracking) Social History Tobacco Use Types Packs/Day Years Used Date Smoking Tobacco: Never Smokeless Tobacco: Never Sex and Gender Information Value Date Recorded Sex Assigned at Not on file Gender Identity Not on file Sexual Orientation Not on file documented as of this encounter Miscellaneous Notes * Telephone Encounter - Brionna Andrade RN - 11/30/2018 2:32 PM EDT LAB TRACKING Brayan Pierre DIAGNOSIS: thymic cancer LABS ORDERED: cbc diff, cmp, mag MEDICATIONS: Sutent Standing transfusion orders from PCP at [facility] Assessment/Plan: Critical labs sent to Dr. Schneider to review. Angelo remains on hold. Dr. Schneider setting up pt to see Dr. Gaytan at [facility] leb Tuesday12/04/18. Pt to continue with weekly labs on and review with Dr. Schneider. (pt will get one unit of blood tomorrow 12/01/18) magnesium 1.4 no replacement required. Results for BRAYAN PIERRE ( ) as of 11/30/2018 14:35 Ref. Range 10/26/2018 00:00 11/02/2018 00:00 11/23/2018 00:00 11/30/2018 00:00 WBC Unknown 4.1 2.4 1.8 1.7 RBC Unknown 2.11 Hemoglobin Unknown 9.2 8.5 7.4 7.4 Hematocrit Unknown 27.0 25.1 22.6 22.5 Platelets Unknown 73 62 54 61 Neutr Abs (ANC) Unknown 2.44 1.54 0.93 0.78 documented in this encounter Plan of Treatment Upcoming Encounters Date Type Department Care Team (Late st Contact Info) Description 02/24/2024 9:00 AM EDT Office Visit Hematology/Oncology at [address] [phone] Shon Schneider MD [facility] [place] [address] [address] HEMATOLOGY AND ONCOLOGY [place], [place] [phone] 02/24/2024 9:30 AM EDT Infusion Hematology Oncology at [address] [phone] 03/02/2024 11:00 AM EDT Office Visit Hematology/Oncology at [address] [phone] Shon Schneider MD [facility] [place] [address] Ciara Pitts [address] HEMATOLOGY AND ONCOLOGY [place], [place] [address] 03/02/2024 12:30 PM EDT Infusion Hematology Oncology at [address] [phone] 03/09/2024 10:00 AM EDT Office Visit Hematology/Oncology at [address] [phone] Shon Schneider MD [facility] [place] [address] Ciara Pitts APRN [address] [place] [address] DR HEMATOLOGY AND ONCOLOGY [place], [place] [address] 03/09/2024 10:30 AM EDT Infusion Hematology Oncology at [address] [phone] documented as of this encounter Goals Goal Patient Goal Type Associated Problems Recent Progress Patient-Stated? Author DH Home Medication Compliance and Understanding Patient Facing Action Plan On track( 019 3:22 PM EST) Ivana Ashraf, [facility] Note: Remain 95% or better adherent to chemotherapy without severe side effects as assessed by days supply and patient reported adverse events at each refill documented as of this encounter Procedures Procedure Name Priority Date/Time Associated Diagnosis Comments CBC (WITH DIFF) Routine 11/30/2018 CBC (WITH DIFF) Routine 11/23/2018 documented in this encounter Results * CBC (with Diff) (11/30/2018) Pathologist [facility] [place] White Blood Cell 1.7 Hemoglobin 7.4 Hematocrit 22.5 Platelet 61 Neutrophil Absolute (ANC) - Automated 0.78 Blood specimen (specimen) 11/30/2018 Historical Provider HEMATOLOGY ORDERA BLES * CBC (with Diff) (11/23/2018) Pathologist [facility] [place] White Blood Cell 1.8 Hemoglobin 7.4 Hematocrit 22.6 Platelet 54 Neutrophil Absolute (ANC) - Automated 0.93 Blood specimen (specimen) 11/23/2018 Historical Provider HEMATOLOGY ORDERA BLES documented in this encounter Visit Diagnoses Not on filedocumented in this encounter Care Teams Manager Heart Relationship Specialty Start Date End Date Gloria Red MD [address] [place] [address] [place] [address] PCP - General Family Medicine 05/26/17 12/03/18 documented as of this encounter
--- OUTSIDE RECORDS SUMMARY | 2024-02-24 01:24 | XMS_ITS | Encounter Summary ---
Author Organization [facility] [place] [address] Care Team Providers Care Corsetier Name Role Phone Jerzy Vidal MD Primary Care Provider [phone] Encounter Details Date Type Department Care Team (Late st Contact Info) Description 01/26/2019 Telephone Hematology/Oncology at [address] [phone] Lashawn Skelton, RN Social History Tobacco Use Types Packs/Day Years Used Date Smoking Tobacco: Never Smokeless Tobacco: Never Sex and Gender Information Value Date Recorded Sex Assigned at Not on file Gender Identity Not on file Sexual Orientation Not on file documented as of this encounter Miscellaneous Notes * Telephone Encounter - Lashawn Skelton RN - 01/26/2019 12:59 PM EDT Called and spoke with Monica, Dr. Schneider has reviewed her labs and she has been given the OK to start the next cycle of Sutent. Labs also are indicating magnesium wasting so Dr. Schneider ordered Amiloride 5mg Daily. Monica had concerns over her BP occasionally running in the 90's, although she reports it averages in the 120's. Dr Schneider said she could start by cutting it in half and trying 2.5mg and seeing how she tolerates it. She has a BP cuff at home and will monitor. Monica is agreeable to this plan. documented in this encounter Plan of Treatment Upcoming Encounters Date Type Department Care Team (Late st Contact Info) Description 02/24/2024 9:00 AM EDT Office Visit Hematology/Oncology at [address] [phone] Shon Schneider MD [facility] [place] [address] [address] HEMATOLOGY AND ONCOLOGY [place], [place] [address] 02/24/2024 9:30 AM EDT Infusion Hematology Oncology at [address] [phone] 03/02/2024 11:00 AM EDT Office Visit Hematology/Oncology at [address] [phone] Shon Schneider MD [facility] [place] [address] [address] HEMATOLOGY AND ONCOLOGY [place], [place] [address] 03/02/2024 12:30 PM EDT Infusion Hematology Oncology at [address] [phone] 03/09/2024 10:00 AM EDT Office Visit Hematology/Oncology at [address] [phone] Shon Schneider MD [facility] [place] [address] Ciara Pitts [address] HEMATOLOGY AND ONCOLOGY [place], [place] [address] 03/09/2024 10:30 AM EDT Infusion Hematology Oncology at [address] [phone] documented as of this encounter Goals Goal [...] on filedocumented in this encounter Care Teams Corsetier Relationship Specialty Start Date End Date Jerzy Vidal MD [address] [place] [address] [place] [address] PCP - [facility] Medicine 12/04/18 documented as of this encounter
--- OUTSIDE RECORDS SUMMARY | 2024-02-24 01:24 | XMS_ITS | Encounter Summary ---
Author Organization [facility] [place] [address] Care Team Providers Care Glass Etcher Name Role Phone Gloria Red MD Primary Care Provider [phone] Reason for Visit * Reason Onset Date Comments Labs Only 11/03/2018 Low MG++, will r eceive replacement Encounter Details Date Type Department Care Team (Late st Contact Info) Description 11/03/2018 Telephone Hematology Oncology at [address] [phone] Ute Chacon RN Labs Only (Low MG++, will receive replacement) Social History Tobacco Use Types Packs/Day Years Used Date Smoking Tobacco: Never Smokeless Tobacco: Never Sex and Gender Information Value Date Recorded Sex Assigned at Not on file Gender Identity Not on file Sexual Orientation Not on file documented as of this encounter Miscellaneous Notes * Telephone Encounter - Ute Chacon RN - 11/03/2018 1:02 PM EDT Labs drawn 11/02. MG++ 1.1. Will receive magnesium replacement at [facility]. [facility] had been notified this amand they have already called patient to set up time. Patient in agreement with plan. * Telephone Encounter - Ute Chacon RN - 11/03/2018 12:43 PM EDT ----- Message from Brionna Andrade RN sent at 10/27/2018 1:07 PM EDT ----- Regarding: FW: Lab tracking- [facility] ----- Message ----- From: Brionna Andrade RN Sent: 10/27/2018 9:46 AM To: Brionna Andrade RN Subject: FW: Lab tracking- [facility] ----- Message ----- From: Lashawn Skelton RN Sent: 10/27/2018 To: [facility] Hem Onc Nurse Subject: FW: Lab tracking- [facility] Lab tracking at [facility]. Pt due for CBC, BMP, and Mag. Drawn at [facility] on . Please review with Dr. Schneider on . Will see Wyatt 10/27- prior to next round. ----- Message ----- From: Lashawn Skelton RN Sent: 10/20/2018 To: [facility] Hem Onc Nurse Subject: FW: Lab tracking- [facility] Please see below ----- Message ----- From: Lashawn Skelton RN Sent: 10/13/2018 To: [facility] Hem Onc Nurse Subject: Lab tracking- [facility] Pt due for CBC, BMP, and Mag. Drawn at [facility] on . Please review with Dr. Schneider on . documented in this encounter Plan of Treatment Upcoming Encounters Date Type Department Care Team (Late st Contact Info) Description 02/24/2024 9:00 AM EDT Office Visit Hematology/Oncology at [address] [phone] Shon Schneider MD [facility] [place] [address] Ciara Pitts APRN [address] [place] [address] HEMATOLOGY AND ONCOLOGY [place], [place] [address] 02/24/2024 9:30 AM EDT Infusion Hematology Oncology at [address] [phone] 03/02/2024 11:00 AM EDT Office Visit Hematology/Oncology at [address] [phone] Shon Schneider MD [facility] [place] [address] [address] HEMATOLOGY [place] [address] 03/02/2024 12:30 PM EDT Infusion Hematology Oncology at [address] [phone] 03/09/2024 10:00 AM EDT Office Visit Hematology/Oncology at [address] [phone] Shon Schneider MD [facility] [place] [place] [address] [address] HEMATOLOGY AND ONCOLOGY [place], [place] [address] 03/09/2024 10:30 AM EDT Infusion Hematology Oncology at [address] [phone] documented as of this encounter Goals Goal [...] Associated Diagnosis Comments CBC (WITH DIFF) Routine 11/02/2018 COMPREHENSIVE METABOLIC PANEL Routine 11/02/2018 documented in this encounter Results * (ABNORMAL) Comprehensive metabolic panel (non-fasting) (11/02/2018) Blood Urea Nitrogen 15 Creatinine 0.70 Sodium 138 Potassium 3.8 Calcium 10.2 Bilirubin, Total 1.0 Alkaline Phosphatase 50 Aspartate Aminotransferase 35 Alanine Aminotransferase 10(<) Comment:less than 10 Magnesium 1.1(L) mg/dL Comment:Will get mg++ replac ement Blood specimen (specimen) 11/02/2018 Shon Schneider MD CHEMISTRY ORDERABLES * CBC (with Diff) (11/02/2018) White Blood Cell 2.4 Red Blood Cell 2.11 Hemoglobin 8.5 Hematocrit 25.1 Platelet 62 Neutrophil Absolute (ANC) - Automated 1.54 Blood specimen (specimen) 11/02/2018 Shon Schneider MD HEMATOLOGY ORDERABLE S documented in this encounter Visit Diagnoses Not on filedocumented in this encounter Care Teams Glass Etcher Relationship Specialty Start Date End Date Gloria Red MD [address] [place] [address] [place] [address] PCP - General Family Medicine 05/26/17 12/03/18 documented as of this encounter
--- OUTSIDE RECORDS SUMMARY | 2024-02-24 01:24 | XMS_ITS | Encounter Summary ---
Author Organization [facility] [place] [address] Care Team Providers Care Operator Electronic Warfare Name Role Phone Jerzy Vidal MD Primary Care Provider [phone] Reason for Visit * Reason Onset Date Comments Labs Only 03/02/2019 lab tracking Encounter Details Date Type Department Care Team (Late st Contact Info) Description 03/02/2019 Telephone Hematology/Oncology at [address] [phone] Brionna Andrade RN Labs Only (lab tracking) Social History Tobacco Use Types Packs/Day Years Used Date Smoking Tobacco: Never Smokeless Tobacco: Never Sex and Gender Information Value Date Recorded Sex Assigned at Not on file Gender Identity Not on file Sexual Orientation Not on file documented as of this encounter Miscellaneous Notes * Telephone Encounter - Brionna Andrade RN - 03/02/2019 1:22 PM EDT LAB TRACKING Brayan Pierre [id number] 1955 DIAGNOSIS: thymic cancer LABS ORDERED: cbc diff, cmp, mag MEDICATIONS: Sutent Standing transfusion orders from PCP at [facility] Assessment/Plan: Labs reviewed by Dr Schneider. Pt is finishing this round of Sutent tomorrow. She will see Michaela Godoy OPERATORS TEACHER next Tuesday03/09/19 with labs. Pt agrees with plan. Results for BRAYAN PIERRE ( ) as of 03/02/2019 13:23 Ref. Range 02/01/2019 00:00 02/08/2019 00:00 02/09/2019 00:00 02/15/2019 00:00 03/01/2019 00:00 WBC Unknown 3.1 4.3 3.8 4 Hemoglobin Unknown 10.1 11.1 10.7 11.4 Hematocrit Unknown 30.4 33.1 31.8 32.9 Platelets Unknown 105 114 108 95 Neutr Abs (ANC) Unknown 1.92 2.41 2.39 2.28 Sodium Unknown 138 Potassium Unknown 4.3 3.8 BUN Unknown 11 13 13 Creatinine Unknown 0.50 0.60 0.70 Calcium Unknown 9.6 9.4 Magnesium Latest Units: mg/dL 1.1 1.5 1.4 1.3 Alk Phos Unknown 61 AST Unknown 37 26 37 ALT Unknown 22 21 documented in this encounter Plan of Treatment Upcoming Encounters Date Type Department Care Team (Late st Contact Info) Description 02/24/2024 9:00 AM EDT Office Visit Hematology/Oncology at [address] [phone] Shon Schneider MD [facility] [place] [address] Ciara Pitts [address] [place] [address] 02/24/2024 9:30 AM EDT Infusion Hematology Oncology at [address] [phone] 03/02/2024 11:00 AM EDT Office Visit Hematology/Oncology at [address] [phone] Shon Schneider MD [facility] [place] [address] Ciara Pitts [address] HEMATOLOGY AND ONCOLOGY [place], [place] [address] 03/02/2024 12:30 PM EDT Infusion Hematology Oncology at [address] [phone] 03/09/2024 10:00 AM EDT Office Visit Hematology/Oncology at [address] [phone] Shon Schneider MD [facility] [place] [address] Ciara Pitts, SENIOR EXAMINER [address] [place] [address] DR [place] [address] 03/09/2024 10:30 AM EDT Infusion Hematology Oncology at [address] [phone] documented as of this [...] Associated Diagnosis Comments CBC (WITH DIFF) Routine 03/01/2019 documented in this encounter Results * CBC (with Diff) (03/01/2019) White Blood Cell 4 Hemoglobin 11.4 Hematocrit 32.9 Platelet 95 Neutrophil Absolute (ANC) - Automated 2.28 Magnesium 1.3 mg/dL Aspartate Aminotransferase 37 Blood specimen (specimen) 03/01/2019 Historical Provider HEMATOLOGY ORDERA BLES documented in this encounter Visit Diagnoses Not on filedocumented in this encounter Care Teams Operator Electronic Warfare Relationship Specialty Start Date End Date Jerzy Vidal MD [address] [place] [address] [place] [address] PCP - [facility] Medicine 12/04/18 documented as of this encounter
--- OUTSIDE RECORDS SUMMARY | 2024-02-24 01:24 | XMS_ITS | Encounter Summary ---
Author Organization [facility] [place] [address] Care Team Providers Care Typo Machine Operator Name Role Phone Jerzy Vidal MD Primary Care Provider [phone] Reason for Visit * Reason Onset Date Comments Labs Only 02/09/2019 Lab tracking Encounter Details Date Type Department Care Team (Late st Contact Info) Description 02/09/2019 Telephone Hematology Oncology at [address] [phone] Eden Vieira RN Labs Only (Lab tracking) Social History Tobacco Use Types Packs/Day Years Used Date Smoking Tobacco: Never Smokeless Tobacco: Never Sex and Gender Information Value Date Recorded Sex Assigned at Not on file Gender Identity Not on file Sexual Orientation Not on file documented as of this encounter Miscellaneous Notes * Telephone Encounter - Lashawn Skelton RN - 02/09/2019 12:41 PM EDT Called to spoke with Brayan, I reported that her labs looked good and her mag was 1.5! She is finishing up her 4th week on Sutant and will have her week off next week. She has a follow up apt with Dr. Schneider next TuesdayFeb 16 prior to starting the next cycle of Sutant. * Telephone Encounter - Eden Vieira RN - 02/09/2019 10:23 AM EDT LAB TRACKING Brayan Pierre [id number] 1955 DIAGNOSIS: thymic cancer LABS ORDERED: cbc diff, cmp, mag MEDICATIONS: Sutent Standing transfusion orders from PCP at [facility] Assessment/Plan: Labs reviewed by Dr Schneider. Pt can continue Sutent. Pt does not need IV magnesium.Pt has increased Amiloride to 5 mg daily. Will check labs again next and review with Dr Schneider. Results for BRAYAN PIERRE ( ) as of 02/09/2019 11:00 Ref. Range 02/01/2019 00:00 02/08/2019 00:00 WBC Unknown 3.1 4.3 Hemoglobin Unknown 10.1 11.1 Hematocrit Unknown 30.4 33.1 Platelets Unknown 105 114 Neutr Abs (ANC) Unknown 1.92 2.41 Sodium Unknown 138 Potassium Unknown 4.3 BUN Unknown 11 13 Creatinine Unknown 0.50 0.60 Calcium Unknown 9.6 Magnesium Latest Units: mg/dL 1.1 1.5 Alk Phos Unknown 61 AST Unknown 37 ALT Unknown 22 documented in this encounter Plan of Treatment Upcoming Encounters Date Type Department Care Team (Late st Contact Info) Description 02/24/2024 9:00 AM EDT Office Visit Hematology/Oncology at [address] [phone] Shon Schneider MD [facility] [place] [address] Ciara Pitts [address] [place] [address] 02/24/2024 9:30 AM EDT Infusion Hematology Oncology at [address] [phone] 03/02/2024 11:00 AM EDT Office Visit Hematology/Oncology at [address] [phone] Shon Schneider MD [facility] [place] [address] [address] HEMATOLOGY AND ONCOLOGY [place], [place] [address] 03/02/2024 12:30 PM EDT Infusion Hematology Oncology at [address] [phone] 03/09/2024 10:00 AM EDT Office Visit Hematology/Oncology at [address] [phone] Shon Schneider MD [facility] [place] [address] HEMATOLOGY AND ONCOLOGY [place], [place] [phone] 03/09/2024 10:30 AM EDT Infusion Hematology Oncology at [address] [phone] documented as of this encounter [...] Procedure Name Priority Date/Time Associated Diagnosis Comments MAGNESIUM Routine 02/09/2019 CBC (WITH DIFF) Routine 02/08/2019 COMPREHENSIVE METABOLIC PANEL Routine 02/08/2019 documented in this encounter Results * Magnesium (02/09/2019) Magnesium 1.5 mg/dL Blood specimen (specimen) 02/09/2019 Shon Schneider MD CHEMISTRY ORDERABLES * Comprehensive metabolic panel (non-fasting) (02/08/2019) Blood Urea Nitrogen 13 Creatinine 0.60 Sodium 138 Potassium 4.3 Calcium 9.6 Alkaline Phosphatase 61 Aspartate Aminotransferase 37 Alanine Aminotransferase 22 Blood specimen (specimen) 02/08/2019 Shon Schneider MD CHEMISTRY ORDERABLES * CBC (with Diff) (02/08/2019) White Blood Cell 4.3 Hemoglobin 11.1 Hematocrit 33.1 Platelet 114 Neutrophil Absolute (ANC) - Automated 2.41 Blood specimen (specimen) 02/08/2019 Shon Schneider MD HEMATOLOGY ORDERABLE S documented in this encounter Visit Diagnoses Not on filedocumented in this encounter Care Teams Typo Machine Operator Relationship Specialty Start Date End Date Jerzy Vidal MD [address] [place] [address] [place] [address] PCP - [facility] Medicine 12/04/18 documented as of this encounter
--- OUTSIDE RECORDS SUMMARY | 2024-02-24 01:24 | XMS_ITS | Encounter Summary ---
Author Organization [facility] [place] [address] Care Team Providers Care Nylon Machine Operator Name Role Phone Jerzy Vidal MD Primary Care Provider [phone] Encounter Details Date Type Department Care Team (Late Contact Info) Description 12/07/2018 External Results Hematology [place] [phone] Shon Schneider MD [facility] [place] [address] Social History Tobacco Use Types Packs/Day Years [...] AM EDT Office Visit Hematology/Oncology at [address] [phone] Shon Schneider MD [facility] [place] [address] Ciara Pitts APRN [address] [place] [address] DR [place] [address] 02/24/2024 9:30 AM EDT Infusion Hematology Oncology at [address] [phone] 03/02/2024 11:00 AM EDT Office Visit Hematology/Oncology at [address] [phone] Shon Schneider MD [facility] [place] [address] HEMATOLOGY AND ONCOLOGY [place], [place] [address] 03/02/2024 12:30 PM EDT Infusion Hematology Oncology at [address] [phone] 03/09/2024 10:00 AM EDT Office Visit Hematology/Oncology at [address] [phone] Shon Schneider MD [facility] [place] [address] [address] HEMATOLOGY AND ONCOLOGY [place], [place] [address] 03/09/2024 10:30 AM EDT Infusion Hematology Oncology at [address] [phone] documented as of this encounter Goals Goal [...] Associated Diagnosis Comments CBC (WITH DIFF) Routine 12/07/2018 COMPREHENSIVE METABOLIC PANEL Routine 12/07/2018 documented in this encounter Results * Comprehensive metabolic panel (non-fasting) (12/07/2018) Glucose 124 Blood Urea Nitrogen 12 Creatinine 0.50 Sodium 138 Potassium 3.7 Chloride 100 Calcium 9.6 Protein, Total 7.6 Bilirubin, Total 0.7 Alkaline Phosphatase 41 Aspartate Aminotransferase 25 Alanine Aminotransferase 12 Magnesium 1.4 mg/dL Blood specimen (specimen) 12/07/2018 Shon Schneider MD CHEMISTRY ORDERABLES * CBC (with Diff) (12/07/2018) White Blood Cell 3.4 Hemoglobin 8.4 Hematocrit 25.9 Platelet 117 Neutrophil Absolute (ANC) - Automated 2.37 Blood specimen (specimen) 12/07/2018 Shon Schneider MD HEMATOLOGY ORDERABLE S documented in this encounter Visit Diagnoses Not on filedocumented in this encounter Care Teams Nylon Machine Operator Relationship Specialty Start Date End Date Jerzy Vidla MD [address] [place] [address] [place] [address] PCP - [facility] Medicine 12/04/18 documented as of this encounter
--- OUTSIDE RECORDS SUMMARY | 2024-02-24 01:24 | XMS_ITS | Encounter Summary ---
Author Organization Formerly [facility] [place] [address] Care Team Providers Care Die Cut Operator Name Role Phone Jerzy Vidal MD Primary Care Provider [phone] Encounter Details Date Type Department Care Team (Late st Contact Info) Description 12/07/2018 Orders Only [place]ology [place] [address] [facility] [place] [address] Social History Tobacco Use Types Packs/Day Years [...] AM EDT Office Visit Hematology/Oncology at [address] [phone] Shon Schneider MD [facility] [place] [address] [address] [place] [address] 02/24/2024 9:30 AM EDT Infusion Hematology Oncology at [address] [phone] 03/02/2024 11:00 AM EDT Office Visit Hematology/Oncology at [address] [phone] Shon Schneider MD [facility] [place] [address] [address] HEMATOLOGY AND ONCOLOGY [place], [place] [address] 03/02/2024 12:30 PM EDT Infusion Hematology Oncology at [address] [phone] 03/09/2024 10:00 AM EDT Office Visit Hematology/Oncology at [address] [phone] Shon Schneider MD [facility] [place] [address] [address] [place] [address] 03/09/2024 10:30 AM EDT Infusion Hematology Oncology at [address] [phone] documented as of this encounter Goals Goal Patient Goal Type Associated Problems Recent Progress Patient-Stated? Author DH Home Medication Compliance and Understanding Patient Facing Action Plan On track( 019 3:22 PM EST) Ivana Ashraf, [facility] Note: Remain 95% or better adherent to chemotherapy without severe side effects as assessed by days supply and patient reported adverse events at each refill documented as of this encounter Visit Diagnoses Not on filedocumented in this encounter Care Teams Die Cut Operator Relationship Specialty Start Date End Date Jerzy Vidal MD [address] [place] [address] [place] [address] PCP - [facility] Medicine 12/04/18 documented as of this encounter
--- OUTSIDE RECORDS SUMMARY | 2024-02-24 01:24 | XMS_ITS | Encounter Summary ---
Author Organization [facility] [place] [address] Care Team Providers Care Extract Puller Name Role Phone Gloria Red MD Primary Care Provider [phone] Encounter Details Date Type Department Care Team (Late st Contact Info) Description 10/27/2018 11:15 AM EDT Office Visit Hematology/Oncology at [address] [phone] Allison Palacios, CLAIMS SUPPORT SPECIALIST [address] [facility] [place] [address] Thymic carcinoma Social History Tobacco Use Types Packs/Day Years Used Date Smoking Tobacco: Never Smokeless Tobacco: Never Sex and Gender Information Value Date Recorded Sex Assigned at Not on file Gender Identity Not on file Sexual Orientation Not on file documented as of this encounter Last Filed Vital Signs Vital Sign Reading Time Taken Comments Blood Pressure 130/88 10/27/2018 11:12 AM EDT Pulse 92 10/27/2018 11:12 AM EDT Temperature 37.2 ??C (98.9 ??F) 10/27/2018 11:12 AM E DT Respiratory Rate 16 10/27/2018 11:12 AM EDT Oxygen Saturation 100% 10/27/2018 11:12 AM EDT Inhaled Oxygen Concentration - - Weight 123.4 kg (272 lb) 10/27/2018 11:12 AM EDT Height 176.5 cm (5' 9.49) 10/27/2018 11:12 AM E DT Body Mass Index 39.61 10/27/2018 11:12 AM EDT documented in this encounter Progress Notes * Allison Palacios, CLAIMS SUPPORT SPECIALIST - 10/27/2018 11:15 AM EDT Subjective: Patient ID: Monica Jaramillo [...] pleural effusion with compression atelectasis. transferred to [facility] for further evaluation and workup and [...] - CONSULT SLIDES FROM [facility]; [place], [place]: A. MEDIASTINUM, MASS, BIOPSY ([id number]; 03/22/2017): ? 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 ?Immunohistochemistry performed at the outside institution and reviewed at [facility] demonstrates the following staining profile in lesional cells: ? Positive - AE1/AE3, p40, PAX8, CD117, CD5(multifocal), CK7(scattered cells), synaptophysin, chromogranin ? Negative - CK20, TTF-1, GATA3, CD34 ? The immunohistochemical profile supports the above diagnosis. ? Ki67 (MIB-1) proliferation index performed at the referring institution and reviewed at [facility] is focally up to ~30%. NOTE: While diffuse synaptophysin and chromogranin expression is unusual for conventional thymic carcinoma, the overall histomorphology and immunophenotype is most in keeping with THYMIC SQUAMOUS CARCINOMA.?The extent of PAX8 and CD117 staining would be unusual for Nut carcinoma. B. MEDIASTINUM, ANTERIOR, 4.5 CM, ULTRASOUND GUIDED FINED NEEDLE ASPIRATION ([id number]; 03/22/17): The cytologic preparations were not reviewed [...] Second opinion with Dr. Roddy Vgea in [place]. They reviewed the pathology and concurred [...] mg two weeks, then 1 week off. Cycle 3 started 09/09/18 - same dose and schedule H. CT c/a/p 09/26/18 - Chest - [...] evidence ofobstruction or strangulation. 4.?Otherwise as above. 2. H/o atrial fibrillation 3. HTN 4. [...] presentation today, she is accompanied by her and feeling great. Her hair is coming backin, and she is active. We have been checking labs on a weekly basis and she has remained stable. 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 Fam Hx: No h/o cancer Review of Systems All other systems reviewed and are negative. BP 130/88 (Patient Position: Sitting) Pulse 92 Temp 37.2 ??C (98.9 ??F) (Oral) Resp 16 Ht 176.5 cm (5' 9.49) Wt 123.4 kg (272 lb) SpO2 100% BMI 39.61 kg/m?? Wt Readings from Last 3 Encounters: 10/27/18 123.4 kg (272 lb) 09/29/18 123.9 kg (273 lb 3.2 oz) 09/08/18 123.3 kg (271 lb 12.8 oz) Objective: Physical Exam Constitutional: She is oriented [...] Her behavior is normal. Vitals reviewed. Labs: 10/26/2018 WBC 4.1 hemoglobin 9.2 platelets 73 CMP: BUN 14 creatinine 0.6 calcium 9.3 sodium 139 potassium 3.8 total protein 7.3 albumin 3.8 totalbili 1.0 alk phos 46 ALT 13 AST 30 magnesium 1.3 TSH 19.3 Assessment and Plan: Ms. Jaramillo is a 63 yo female seen in f/u of thymic carcinoma, as summarized above. She initially received therapy with carboplatin and [...] trying. I spoke with Dr. Vega at [facility]. There were no clinical trials available there. [...] mg/day, 2 weeks followed by one w venetie off, with cycles repeated every three weeks. She has tolerated that well. She had a restaging CT scan done on 09/26/18 which is stable compared with 04/2019. The tumor may rae little less bulky on the current scan. Therefore, plan to continue the sutent. Her plts are low but we are monitoring weekly and she has been stable. Her TSH is up at 19.30 so we will have her start synthroid at 25mcg and check a free T4. Her Mg remains low at 1.3- we will replace with 1g IV and I have asked her to restart her oral K since she is on the low side of normal and we will not keep her Mg up unless the K is up. She is taking BID oral Mg. Plan to see her back here in 3wks. Foundation One testing. Per the report, there were 3 genomic findings but no therapies associated with potential clinical benefit. Of note, pembrolizumab is now included on the NCCN list of second line therapies with a note that, in this disease, there is a higher risk of serious immune related toxicity, including myocarditis. Allison Palacios, MSN, BILLING REP, AOCN Hematology/Oncology Nurse Practitioner [place], [place] [phone] documented in this encounter Miscellaneous Notes * Addendum Note - Allison Palacios APRN - 10/27/2018 11:15 AM EDTAddended by: ALLISON PALACIOS on: 10/27/2018 11:54 AM Modules accepted: Orders documented in this encounter Plan of Treatment Upcoming Encounters Date Type Department Care Team (Late st Contact Info) Description 02/24/2024 9:00 AM EDT Office Visit Hematology/Oncology at [address] [phone] Shon Schneider MD [facility] [place] [address] HEMATOLOGY AND ONCOLOGY [place], [place] [address] [phone] 02/24/2024 9:30 AM EDT Infusion Hematology Oncology at [address] [phone] 03/02/2024 11:00 AM EDT Office Visit Hematology/Oncology at [address] [phone] Shon Schneider MD [facility] [place] [place] [address] Ciara Pitts [address] HEMATOLOGY AND ONCOLOGY [place], [place] [address] 03/02/2024 12:30 PM EDT Infusion Hematology Oncology at [address] [phone] 03/09/2024 10:00 AM EDT Office Visit Hematology/Oncology at [address] [phone] Shon Schneider MD [facility] [place] [address] Ci[address] Pitts [address] HEMATOLOGY AND ONCOLOGY [place], [place] [phone] 03/09/2024 10:30 AM EDT Infusion Hematology Oncology at [address] [phone] documented as of this encounter Goals Goal [...] Priority Date/Time Associated Diagnosis Comments LAB SCAN 11/16/2018 12:00 AM EDT LAB SCAN 11/16/2018 12:00 AM EDT LAB SCAN 11/16/2018 12:00 AM EDT LAB SCAN 11/09/2018 12:00 AM EDT LAB SCAN 11/02/2018 12:00 AM EDT LAB SCAN 11/02/2018 12:00 AM EDT LAB SCAN 11/02/2018 12:00 AM EDT documented in this encounter Results * SCAN DOC: LAB (11/16/2018 12:00 AM EDT) Narrative 11/16/2018 12:00 AM EDT Ordered by an unspecified provider. Scanning Provider MEDIA MGR SCAN EXT O RDR/RSLT * SCAN DOC: LAB (11/16/2018 12:00 AM EDT) Narrative 11/16/2018 12:00 AM EDT Ordered by an unspecified provider. Scanning Provider MEDIA MGR SCAN EXT O RDR/RSLT * SCAN DOC: LAB (11/16/2018 12:00 AM EDT) Narrative 11/16/2018 12:00 AM EDT Ordered by an unspecified provider. Scanning Provider MEDIA MGR SCAN EXT O RDR/RSLT * SCAN DOC: LAB (11/09/2018 12:00 AM EDT) Narrative 11/09/2018 12:00 AM EDT Ordered by an unspecified provider. Scanning Provider MEDIA MGR SCAN EXT O RDR/RSLT * SCAN DOC: LAB (11/02/2018 12:00 AM EDT) Narrative 11/02/2018 12:00 AM EDT Ordered by an unspecified provider. Scanning Provider MEDIA MGR SCAN EXT O RDR/RSLT * SCAN DOC: LAB (11/02/2018 12:00 AM EDT) Narrative 11/02/2018 12:00 AM EDT Ordered by an unspecified provider. Scanning Provider MEDIA MGR SCAN EXT O RDR/RSLT * SCAN DOC: LAB (11/02/2018 12:00 AM EDT) Narrative 11/02/2018 12:00 AM EDT Ordered by an unspecified provider. 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 documented in this encounter Care Teams Extract Puller Relationship Specialty Start Date End Date Gloria Red MD [address] [place] [address] [place] [phone] PCP - General Family Medicine 05/26/17 12/03/18 documented as of this encounter
--- OUTSIDE RECORDS SUMMARY | 2024-02-24 01:24 | XMS_ITS | Encounter Summary ---
Author Organization Formerly [facility] Address [facility] [place] [address] Care Team Providers Care Carbonation Tester Name Role Phone Jerzy Vidal MD Primary Care Provider [phone] Encounter Details Date Type Department Care Team (Latest Contact Info) Description 12/19/2018 10:41 AM EDT - 12/19/2018 11:59 PM EDT Hospital Encounter [place]ematology [place] [address] Thymic carcinoma (Primary Dx); Hypomagnesemia; Pancytopenia; Hypothyroidism, acquired Discharge Disposition: Home Social History Tobacco Use [...] Tablet Take 1 tablet by mouth daily. sunitinib (SUTENT) chemo tabletIndications:T hymic carcinoma Take [...] Progress Notes * Hattie Elise RN - 12/19/2018 11:06 AM EDT Patient Name: Monica Jaramillo Patient Age: 63 y.o. Birthdate: 1955 Admit date: 12/19/2018 Attending Physician: No att. providers found Access visit. See MAR and/or flowsheet. documented in this encounter Plan of Treatment Upcoming Encounters Date Type Department Care Team (Late st Contact Info) Description 02/24/2024 9:00 AM EDT Office Visit Hematology/Oncology at [address] [phone] Shon Schneider MD [facility] [place] [address] [address] HEMATOLOGY AND ONCOLOGY [place], [place] [address] 02/24/2024 9:30 AM EDT Infusion Hematology Oncology at [address] [phone] 03/02/2024 11:00 AM EDT Office Visit Hematology/Oncology at [address] [phone] Shon Schneider MD [facility] [address] HEMATOLOGY AND ONCOLOGY [place], [place] [address] 03/02/2024 12:30 PM EDT Infusion Hematology Oncology at [address] [phone] 03/09/2024 10:00 AM EDT Office Visit Hematology/Oncology at [address] [phone] Shon Schneider MD [facility] [place] [address] [address] HEMATOLOGY AND ONCOLOGY [place], [place] [address] 03/09/2024 10:30 AM EDT Infusion Hematology Oncology at [address] [phone] Scheduled Orders Name Type Priority Associated Diagnoses Orde r Schedule T4, free Lab Routine Hypothyroidism, acquired 1 Occurrences starting 12/19/2018 until 12/19/2018 TSH Lab Routine Hypothyroidism, acquired 1 Occurrences starting 12/19/2018 until 12/19/2018 documented as of this encounter Goals Goal [...] Priority Date/Time Associated Diagnosis Comments HEMOGRAM Routine 12/19/2018 11:05 AM EDT Thymic carcinoma Pancytopenia DIFFERENTIAL, AUTOMATED Routine 12/19/2018 11:05 AM EDT Thymic carcinoma Pancytopenia CBC (WITH DIFF) Routine 12/19/2018 11:05 AM EDT Thymic carcinoma Pancytopenia TSH Routine 12/19/2018 11:05 AM EDT T4, FREE Routine 12/19/2018 11:05 AM EDT MAGNESIUM Routine 12/19/2018 11:05 AM EDT Thymic carcinoma Hypomagnesemia COMPREHENSIVE METABOLIC PANEL Routine 12/19/2018 11:05 AM EDT Thymic carcinoma documented in this encounter Results * T4, free (12/19/2018 11:05 AM EDT) Free T4 1.31 0.93 - 1.70 ng/dL [facility] Blood specimen (specimen) Venous Draw / Unknown 12/19/2018 11:05 AM EDT 12/19/2018 1:20 PM EDT Narrative Resulting Agency Comment Spec In Lab Shon Schneider MD CHEMISTRY ORDERABLES [facility] [place] [address] * TSH (12/19/2018 11:05 AM EDT) Thyroid Stimulating Hormone 2.76 0.27 - 4.20 mcIU/mL [facility] Blood specimen (specimen) Venous Draw / Unknown 12/19/2018 11:05 AM EDT 12/19/2018 1:20 PM EDT Narrative Resulting Agency Comment Spec In Lab Shon Schneider MD CHEMISTRY ORDERABLES [facility] [place] [address] * (ABNORMAL) Differential, Automated (12/19/2018 11:05 AM EDT) Neutrophil % 66.0 % [facility] Neutrophil Absolute 3.00 1.70 - 6.10 x10(3)/mc L [facility] Lymph % 16.5 % [facility] Lymphocytes Abs 0.8(L) 0.9 - 3.2 x10(3)/ L [facility] Monocyte % 15.8 % [facility] Monocyte Abs 0.7 0.3 - 0.9 x10(3)/ L [facility] Eos % 1.1 % [facility] Eosinophils Abs 0.0 0.0 - 0.4 x10(3)/ L [facility] Basophil % 0.2 % [facility] Baso Absolute 0.0 0.0 - 0.1 x10(3)/mc L [facility] Immature Gran % 0.40 % [facility] Comment: Immature granulocytes(IG's)percentage and absolute count will include metamyelocytes, myelocytes, and promyelocytes. Blood smears from CBCs yielding IG's will be scanned manually for concordance. If this scan disagrees with the automated IG or if promyelocytes are noted, a manual differential will be performed. Immature Gran Absolute 0.02 0.00 - 0.04 x10(3)/mc L [facility] Blood specimen (specimen) 12/19/2018 11:05 AM EDT 12/19/2018 11:35 AM EDT Narrative Resulting Agency Comment Spec In Lab Shon Schneider MD HEMATOLOGY ORDERABLE S [facility] [place] [address] * (ABNORMAL) Hemogram (12/19/2018 11:05 AM EDT) White Blood Cell 4.6 4.0 - 9.5 x10(3)/mc L [facility] Red Blood Cell 2.16(L) 4.00 - 5.21 x10(6)/mc L [facility] Hemoglobin 8.0(L) 11.7 - 15.5 gm/dL [facility] Hematocrit 24.8(L) 35.7 - 45.8 % [facility] Mean Cell Volume 114.8(H) 82.6 - 94.4 fL [facility] Mean Cell Hemoglobin 37.0(H) 27.1 - 32.0 pg [facility] Mean Cell Hemoglobin Concentration 32.3 31.7 - 35.0 gm/dL [facility] Platelet 158 145 - 357 x10(3)/mc L [facility] RDW Standard Deviation 84.6(H) 37.0 - 46.0 [facility] RDW coefficient of variation 20.7(H) 11.5 - 14.1 % [facility] Mean Platelet Volume 10.4 7.6 - 12.9 fL [facility] NRBC% auto 0.0 % [facility] NRBC Absolute 0.000 0.000 - 0.000 x10(3)/mc L [facility] Blood specimen (specimen) 12/19/2018 11:05 AM EDT 12/19/2018 11:35 AM EDT Narrative Resulting Agency Comment Spec In Lab Shon Schneider MD HEMATOLOGY ORDERABLE S [facility] [place] [address] * (ABNORMAL) Comprehensive metabolic panel (non-fasting) (12/19/2018 11:05 AM EDT) Glucose 118 65 - 199 mg/dL [facility] Comment:Diabetes: >=200 mg/d L plus symptoms Blood Urea Nitrogen 10 8 - 18 mg/dL [facility] Creatinine 0.62(L) 0.70 - 1.20 mg/dL [facility] Sodium 143 135 - 145 mmol/L [facility] Potassium 3.7 3.5 - 5.0 mmol/L [facility] Comment: Please note: ??Patients with WBC >100,000 may have falsely elevated Potassium levels. ??For accurate Potassium quantification in these patients send serum separator tube (gold top) for subsequent determinations. ??Contact the Clinical Chemistry Laboratory if there are any questions. Chloride 102 98 - 107 mmol/L [facility] Carbon Dioxide 28 22 - 31 mmol/L [facility] Anion Gap 13 5 - 15 mmol/L [facility] Calcium 9.6 8.5 - 10.5 mg/dL [facility] Protein, Total 7.4 6.1 - 8.0 gm/dL [facility] Albumin 4.1 3.2 - 5.2 gm/dL [facility] Aspartate Aminotransferase 12 0 - 30 unit/L [facility] Alanine Aminotransferase 9 0 - 30 unit/L [facility] Alkaline Phosphatase 44 40 - 104 unit/L [facility] Bilirubin, Total 0.7 0.2 - 1.3 mg/dL [facility] Est Glomerular Filtration Rate 97 >=60 mL/min/1. 73 m?? [facility] Comment: The eGFR was calculated using the CKD-EPI equation. As with all creatinine based estimates of kidney function, eGFR values calculated with the CKD-EPI equation are not accurate in patients with acute kidney failure, extremes of body mass or the acutely ill. http://[employer]/[facility] OKLAHOMA CITYnkf eGFR 113 >=60 mL/min/1. 73 m?? [facility] Comment: The eGFR was calculated using the CKD-EPI equation. As with all creatinine based estimates of kidney function, eGFR values calculated with the CKD-EPI equation are not accurate in patients with acute kidney failure, extremes of body mass or the acutely ill. http://[employer]/[facility]MCnkf Blood specimen (specimen) 12/19/2018 11:05 AM EDT 12/19/2018 11:35 AM EDT Narrative Resulting Agency Comment Spec In Lab Shon Schneider MD CHEMISTRY ORDERABLES Performing Organization Address City/[facility] Co de Phone Number [facility] [place] [address] * (ABNORMAL) Magnesium (12/19/2018 11:05 AM EDT) Magnesium 0.68(L) 0.69 - 1.07 mmol/L [facility] Blood specimen (specimen) 12/19/2018 11:05 AM EDT 12/19/2018 11:35 AM EDT Narrative Resulting Agency Comment Spec In Lab Shon Schneider MD CHEMISTRY ORDERABLES Performing Organization Address [facility] Co de Phone Number [facility] [place] [address] documented in this encounter Visit Diagnoses Diagnosis 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 Hypomagnesemia Disorders of magnesium metabolism Pancytopenia Other pancytopenia Hypothyroidism, acquired Unspecified hypothyroidism Thymic carcinoma Malignant neoplasm of thymus documented in this encounter Administered Medications Inactive Administered Medications - up to 3 most recent administrations Medication Order MAR Action Action Date Dose Rate Site sodium chloride 0.9 % (flush) flush 20 mL 20 mL, Intravenous, EVERY 1 MIN PRN, Starting on Tue12/19/18 at 1044, Until Tue12/20/18 at 0435, It Support Engineer, Routine Given 12/19/2018 10:55 AM EDT 20 mLs documented in this encounter Care Teams Carbonation Tester Relationship Specialty Start Date End Date Jerzy Vidal MD [address] [place] [address] [place] [address] PCP - [facility] 12/04/18 documented as of this encounter
--- OUTSIDE RECORDS SUMMARY | 2024-02-24 01:24 | XMS_ITS | Encounter Summary ---
Author Organization [facility] Address [facility] [place] [address] Care Team Providers Care Boiler Engineer Name Role Phone Jerzy Vidal MD Primary Care Provider [phone] Encounter Details Date Type Department Care Team (Late st Contact Info) Description 01/23/2019 Orders Only Hematology [place] [address] Gabby Delgadillo Social History Tobacco Use Types [...] AM EDT Office Visit Hematology/Oncology at [address] [phone] Shon Schneider MD [facility] [place] [address] Ciara Pitts APRN [address] [place] [address] DR HEMATOLOGY AND ONCOLOGY [place], [place] [address] 02/24/2024 9:30 AM EDT Infusion Hematology Oncology at [address] [phone] 03/02/2024 11:00 AM EDT Office Visit Hematology/Oncology at [address] [phone] Shon Schneider MD [facility] [place] [address] [address] HEMATOLOGY AND ONCOLOGY [place], [place] [id number] 03/02/2024 12:30 PM EDT Infusion Hematology Oncology at [address] [phone] 03/09/2024 10:00 AM EDT Office Visit Hematology/Oncology at [address] [phone] Shon Schneider MD [facility] [place] [address] [address] HEMATOLOGY AND ONCOLOGY [place], [place] [id number] 03/09/2024 10:30 AM EDT Infusion Hematology Oncology at [address] [phone] documented as of this encounter Goals Goal [...] on filedocumented in this encounter Care Teams Boiler Engineer Relationship Specialty Start Date End Date Jerzy Vidal MD [address] [place] [address] [place] [address] PCP - [facility] Medicine 12/04/18 documented as of this encounter
--- OUTSIDE RECORDS SUMMARY | 2024-02-24 01:24 | XMS_ITS | Encounter Summary ---
Author Organization [facility] [place] [address] Care Team Providers Care Sheet Hanger Name Role Phone Gloria Red MD Primary Care Provider [phone] Reason for Visit * Reason Comments IV Medication 1 gm Magnesium Encounter Details Date Type Department Care Team (Late Contact Info) Description 10/27/2018 12:00 PM EDT Infusion Hematology Oncology at [address] [phone] Thymic carcinoma Social History Tobacco Use Types Packs/Day Years Used Date Smoking Tobacco: Never Smokeless Tobacco: Never Sex and Gender Information Value Date Recorded Sex Assigned at Not on file Gender Identity Not on file Sexual Orientation Not on file documented as of this encounter Progress Notes * Boaz Amos RN - 10/27/2018 12:00 PM EDT INFUSION THERAPY ADMINISTRATION NOTES DIAGNOSIS: Thymic cancer REASON FOR VISIT: 1 gm Magnesium infusion for Mag level of 1.3 on 10/26/18. IV ACCESS: Mediport GAUGE: 19G BLOOD RETURN: [...] AM EDT Office Visit Hematology/Oncology at [address] [phone] Shon Schneider MD [facility] [address] [address] HEMATOLOGY AND ONCOLOGY [place], [place] [address] 02/24/2024 9:30 AM EDT Infusion Hematology Oncology at [address] [phone] 03/02/2024 11:00 AM EDT Office Visit Hematology/Oncology at [address] [phone] Shon Schneider MD [facility] [place] [address] [address] HEMATOLOGY AND ONCOLOGY [place], [place] [id number] 03/02/2024 12:30 PM EDT Infusion Hematology Oncology at [address] [phone] 03/09/2024 10:00 AM EDT Office Visit Hematology/Oncology at [address] [phone] Shon Schneider MD [facility] [place] [address] [address] HEMATOLOGY AND ONCOLOGY [place], [place] [address] 03/09/2024 10:30 AM EDT Infusion Hematology Oncology at [address] [phone] documented as of this encounter Goals Goal [...] MAR Action Action Date Dose Rate Site magnesium sulfate 1g in dextrose 5% 100mL 1 g, Intravenous, ONCE, 1 dose, On Tue10/27/18 at 1200, Administer over 60 Minutes, Please give 1g Mg for Mg <1.6 New Bag 10/27/2018 11:49 AM EDT 1 g 100 mL/hr documented in this encounter Care Teams Sheet Hanger Relationship Specialty Start Date End Date Gloria Red MD [address] [place] [address] [place] [phone] PCP - General Family Medicine 05/26/17 12/03/18 documented as of this encounter
--- OUTSIDE RECORDS SUMMARY | 2024-02-24 01:24 | XMS_ITS | Encounter Summary ---
Author Organization [place] [address] Care Team Providers Care Hand Molder Name Role Phone Jerzy Vidal MD Primary Care Provider [phone] Reason for Referral * Diagnostic Test (Routine) - Closed Specialty Diagnoses / Procedures Referred By Contac t Referred To Contact Radiology Diagnoses Thymic carcinoma Procedures CT Chest Abdomen Pelvis w Contrast (Generic) Shon Schneider MD [facility] [place] [address] [facility] [place] [address] Referral ID Status Reason Start Date Expiration Date V isits Requested Visits Authorized [id number] Closed Specialty Service Requested 12/12/2018 03/12/2019 1 1 Reason for Visit * Diagnostic Test (Routine) - Closed Specialty Diagnoses / Procedures Referred By Contac t Referred To Contact Radiology Diagnoses Thymic carcinoma Procedures CT Chest Abdomen Pelvis w Contrast (Generic) Shon Schneider MD [facility] [place] [address] [facility] [place] [address] Referral ID Status Reason Start Date Expiration Date V isits Requested Visits Authorized [id number] Closed Specialty Service Requested 12/12/2018 03/12/2019 1 1 Encounter Details Date Type Department Care Team (Latest Contact Info) Description 12/19/2018 10:33 AM EDT - 12/19/2018 10:40 AM EDT Hospital Encounter CT Scan at [facility] [place] [address] Shon Schneider MD [facility] [place] [address] Thymic carcinoma Discharge Disposition: Home Social History [...] Tablet Take 1 tablet by mouth daily. levothyroxine (SYNTHROID) 25 mcg Tablet Take 1 tablet by mouth daily. 90 tablet 3 10/27/2018 10/30/2019 potassium chloride (K-DUR/KLOR-CON) 20 mEq Tab Sust.Rel. Particle/CrystalIndic ations:hypokalemia prevention Take 20 mEq by mouth daily. Indications: hypokalemia prevention 0 magnesium oxide (MAG-OX) 400 mg TabletIndications:hyp omagnesemia Take 400 mg by mouth 2 times daily. Indications: hypomagnesemia 07/17/2021 prochlorperazine (COMPAZINE) 5 mg Tablet Take 1 tablet by mouth every 6 hours as needed for Nausea. 15 tablet 05/28/2017 09/26/2020 meTOPROLOL succinate (TOPROL-XL) 200 mg Tablet Sustained Release 24 hrIndications:multifo sabiha atrial tachycardia Take 200 mg by mouth daily. Indications: Multifocal Atrial Tachycardia 01/29/2022 DILTiazem (CARDIZEM CD) 240 mg Capsule, Sust. Release 24 hrIndications:ventric ular rate control in atrial fibrillation Take 240 mg by mouth daily. Indications: Ventricular Rate Control in Atrial Fibrillation 11/07/2022 documented as of this encounter Plan of Treatment Upcoming Encounters Date Type Department Care Team (Late st Contact Info) Description 02/24/2024 9:00 AM EDT Office Visit Hematology/Oncology at [address] [phone] Shon Schneider MD [facility] [place] [address] HEMATOLOGY AND ONCOLOGY [place], [place] [address] [phone] 02/24/2024 9:30 AM EDT Infusion Hematology Oncology at [address] [phone] 03/02/2024 11:00 AM EDT Office Visit Hematology/Oncology at [address] [phone] Shon Schneider MD [facility] [place] [address] [address] HEMATOLOGY AND ONCOLOGY [place], [place] [address] 03/02/2024 12:30 PM EDT Infusion Hematology Oncology at [address] [phone] 03/09/2024 10:00 AM EDT Office Visit Hematology/Oncology at [address] [phone] Shon Schneider MD [facility] [place] [address] [address] HEMATOLOGY AND ONCOLOGY [place], [place] [address] 03/09/2024 10:30 AM EDT Infusion Hematology Oncology at [address] [phone] documented as of this encounter Goals Goal Patient Goal Type Associated Problems Recent Progress Patient-Stated? Author DH Home Medication Compliance and Understanding Patient Facing Action Plan On track( 019 3:22 PM EST) No Ivana Vanegas, [facility] Note: Remain 95% or better adherent to chemotherapy without severe side effects as assessed by days supply and patient reported adverse events at each refill documented as of this encounter Procedures Procedure Name Priority Date/Time Associated Diagnosis Comments LAB SCAN 01/04/2019 12:00 AM EDT LAB SCAN 12/28/2018 12:[address] CHEST ABDOMEN PELVIS W CONTRAST (GENERIC) Routine 12/19/2018 1:36 PM EDT Thymic carcinoma documented in this encounter Results * SCAN DOC: LAB (01/04/2019 12:00 AM EDT) Narrative 01/04/2019 12:00 AM EDT Ordered by an unspecified provider. Scanning Provider MEDIA MGR SCAN EXT O RDR/RSLT * SCAN DOC: LAB (12/28/2018 12:00 AM EDT) Narrative 12/28/2018 12:00 AM EDT Ordered by an unspecified provider. Scanning Provider MEDIA MGR SCAN EXT O RDR/RSLT * CT Chest Abdomen Pelvis w Contrast (Generic) (12/19/2018 1:36 PM EDT) Anatomical Region Laterality Modality Abdomen, Pelvis Computed Tomogra phy Impressions 12/19/2018 2:33 PM EDT 1. ??Stable size and morphology anterior mediastinal mass measuring 3 x 9 cm, consistent with known thymic carcinoma. 2. ??Stable borderline mediastinal and pericardial adenopathy. 3. ??Stable lytic lesion L2 vertebral body. 4. ??Stable left breast mass. Please correlate with mammographic imaging/breast ultrasound for lesion characterization and management. 5. ??Previously identified liver abnormalities are not appreciated on today's exam. 6. ??Stable bowel and fat-containing abdominal wall hernias without evidence of complications. Thank you for letting us participate in the care of this patient. For questions regarding this report, please contact the number below. ? Electronically signed by: Dariana Schulte [facility] ([phone]), at 12/19/2018 2:33 PM Narrative 12/19/2018 2:33 PM EDT EXAMINATION: CT CHEST ABDOMEN PELVIS W CONTRAST (GENERIC) CLINICAL HISTORY: Thymic carcinoma, on therapy with sutent. ??REstaging - please compare with outside imaging from 09/2018. TECHNIQUE: Helical CT of the chest, abdomen, and pelvis was performed following intravenous administration of contrast. Administered 120.0 ml of OMNIPAQUE 350.00 mg/ml. Oral contrast was administered. COMPARISON: CT scan from [facility] dated 09/26/2018 FINDINGS: Chest: Lungs and large airways: Stable 3 mm left upper lobe pleural-based nodule Pleura: No effusion. Heart/vasculature: Normal. Lymph nodes: Stable borderline enlarged mediastinal nodes, largest right paratracheal measuring 9 mm short axis. Stable pericardial adenopathy. Mediastinum and william: Lobulated anterior mediastinal mass with associated coarse calcifications is stable in size and morphology, findings consistent with known thymic carcinoma. Left breast mass and associated calcification, stable since 2017. Please correlate with mammographic imaging. Abdomen/pelvis: Liver: Normal size and attenuation without lesions. Ill-defined areas of heterogeneous attenuation identified on the outside study are not clearly visualized on today's exam. Bile ducts: Nondilated. Gallbladder: No calcified gallstones. Normal caliber wall. Pancreas: Normal attenuation without ductal dilatation. Spleen: Normal. Adrenals: Normal. Kidneys: Normal. Urinary Bladder: Normal. Vasculature: No aneurysm. Lymph Nodes: ??Fat infiltrated 6 cm retroperitoneal node. No findings to suggest metastatic adenopathy. Bowel: Nondilated, no wall thickening. ?? Peritoneum and mesentery: No ascites, free air, or loculated fluid collection. No mesenteric inflammation. Abdominal wall: Stable multiple anterior abdominal wall hernias containing fat and bowel. No evidence of bowel obstruction. No ascites.. Reproductive organs: Stable large uterine fibroids with associated coarse calcifications. Osseous structures: Stable lytic lesion L2 vertebral body. Previously identified T12 lesion is not clearly imaged today Procedure Note Dariana Kennedy MD - 12/19/2018 EXAMINATION: CT CHEST ABDOMEN PELVIS W CONTRAST (GENERIC) CLINICAL HISTORY: Thymic carcinoma, on therapy with sutent. REstaging -please compare with outside imaging from 09/2018. TECHNIQUE: Helical CT of the chest, abdomen, and pelvis was performedfollowing intravenous administration of contrast. Administered 120.0 ml ofOMNIPAQUE 350.00 mg/ml. Oral contrast was administered. COMPARISON: CT scan from [facility] dated 09/26/2018 FINDINGS: Chest: Lungs and large airways: Stable 3 mm left upper lobe pleural-basednodule Pleura: No effusion. Heart/vasculature: Normal. Lymph nodes: Stable borderline enlarged mediastinal nodes, largest right paratracheal measuring 9 mm short axis. Stable pericardial adenopathy. Mediastinum and william: Lobulated anterior mediastinal mass with associatedcoarse calcifications is stable in size and morphology, findings consistent withknown thymic carcinoma. Left breast mass and associated calcification, stablesince 2016. Please correlate with mammographic imaging. Abdomen/pelvis: Liver: Normal size and attenuation without lesions. Ill-defined areas of heterogeneous attenuation identified on the outside study are notclearly visualized on today's exam. Bile ducts: Nondilated. Gallbladder: No calcified gallstones. Normal caliber wall. Pancreas: Normal attenuation without ductal dilatation. Spleen: Normal. Adrenals: Normal. Kidneys: Normal. Urinary Bladder: Normal. Vasculature: No aneurysm. Lymph Nodes: Fat infiltrated 6 cm retroperitoneal node. No findings tosuggest metastatic adenopathy. Bowel: Nondilated, no wall thickening. Peritoneum and mesentery: No ascites, free air, or loculated fluidcollection. No mesenteric inflammation. Abdominal wall: Stable multiple anterior abdominal wall hernias containingfat and bowel. No evidence of bowel obstruction. No ascites.. Reproductive organs: Stable large uterine fibroids with associatedcoarse calcifications. Osseous structures: Stable lytic lesion L2 vertebral body. Previouslyidentified T12 lesion is not clearly imaged today IMPRESSION 1. Stable size and morphology anterior mediastinal mass measuring 3 x 9cm, consistent with known thymic carcinoma. 2. Stable borderline mediastinal and pericardial adenopathy. 3. Stable lytic lesion L2 vertebral body. 4. Stable left breast mass. Please correlate with mammographicimaging/breast ultrasound for lesion characterization and management. 5. Previously identified liver abnormalities are not appreciated ontoday's exam. 6. Stable bowel and fat-containing abdominal wall hernias withoutevidence of complications. Thank you for letting us participate in [...] Intravenous, ONCE PRN, 1 dose, Starting on Tue12/19/18 at 1321, Until Tue12/19/18 at 1337, Per Protocol, Warning Vesicant/Irritant Medication , Radiology Contrast, Routine Given 12/19/2018 1:37 PM EDT 120 mLs iohexol (OMNIPAQUE) 350 mg/mL solution 0-50 mL 0-50 mL, Oral, ONCE PRN, 1 dose, Starting on Tue12/19/18 at 1321, Until Tue12/19/18 at 1337, Per Protocol, Warning Vesicant/Irritant Medication , Radiology Contrast, Routine Given 12/19/2018 1:37 PM EDT 50 mLs documented in this encounter Care Teams Hand Molder Relationship Specialty Start Date End Date Jerzy Vidal MD [address] [place] [address] [place] [address] PCP - [facility] Medicine 12/04/18 documented as of this encounter
--- OUTSIDE RECORDS SUMMARY | 2024-02-24 01:24 | XMS_ITS | Encounter Summary ---
Author Organization [facility] [place] [address] Care Team Providers Care Clinical Operations Manager Name Role Phone Jerzy Vidal MD Primary Care Provider [phone] Reason for Visit * Reason Onset Date Comments Disability Paperwork 12/26/2018 Encounter Details Date Type Department Care Team (Late Contact Info) Description 12/26/2018 Telephone Hematology [place] [phone] Michelle Kong Disability Paperwork Social History Tobacco Use Types Packs/Day Years Used Date Smoking Tobacco: Never Smokeless Tobacco: Never Sex and Gender Information Value Date Recorded Sex Assigned at Not on file Gender Identity Not on file Sexual Orientation Not on file documented as of this encounter Miscellaneous Notes * Telephone Encounter - Michelle Rivero - 12/26/2018 3:42 PM EDT FMLA forms completed. Pending provider review and signature. documented in this encounter Plan of Treatment Upcoming Encounters Date Type Department Care Team (Late Contact Info) Description 02/24/2024 9:00 AM EDT Office Visit Hematology/Oncology at [address] [phone] Shon Schneider MD [facility] [place] [address] [address] HEMATOLOGY AND ONCOLOGY [place], [place] [address] 02/24/2024 9:30 AM EDT Infusion Hematology Oncology at [address] [phone] 03/02/2024 11:00 AM EDT Office Visit Hematology/Oncology at [address] [phone] Shon Schneider MD [facility] [place] [address] [address] HEMATOLOGY AND ONCOLOGY [place], [place] [address] 03/02/2024 12:30 PM EDT Infusion Hematology Oncology at [address] [phone] 03/09/2024 10:00 AM EDT Office Visit Hematology/Oncology at [address] [phone] Shon Schneider MD [facility] [place] [address] [address] HEMATOLOGY AND ONCOLOGY [place], [place] [phone] 03/09/2024 10:30 AM EDT Infusion Hematology Oncology at [address] [phone] documented as of this encounter Goals Goal [...] on filedocumented in this encounter Care Teams Clinical Operations Manager Relationship Specialty Start Date End Date Jerzy Vidal MD [address] [place] [address] [place] [address] PCP - [facility] Medicine 12/04/18 documented as of this encounter
--- OUTSIDE RECORDS SUMMARY | 2024-02-24 01:24 | XMS_ITS | Encounter Summary ---
Author Organization [facility]ly [facility] Address [facility] [place] [address] Care Team Providers Care Ceramic Sprayer Name Role Phone Gloria Red MD Primary Care Provider [phone] Encounter Details Date Type Department Care Team (Late st Contact Info) Description 11/17/2018 10:00 AM EDT Office Visit Hematology/Oncology at [address] [phone] Shon Schneider MD [facility] [place] [address] Thymic carcinoma; Hypothyroidism, acquired Social History Tobacco Use Types Packs/Day Years Used Date Smoking Tobacco: Never Smokeless Tobacco: Never Sex and Gender Information Value Date Recorded Sex Assigned at Not on file Gender Identity Not on file Sexual Orientation Not on file documented as of this encounter Last Filed Vital Signs Vital Sign Reading Time Taken Comments Blood Pressure 124/77 11/17/2018 10:06 AM EDT Pulse 77 11/17/2018 10:06 AM EDT Temperature 36.9 ??C (98.4 ??F) 11/17/2018 1 0:06 AM EDT Respiratory Rate 16 11/17/2018 10:0 6 AM EDT Oxygen Saturation 100% 11/17/2018 10: 06 AM EDT Inhaled Oxygen Concentration - - Weight 124.6 kg (274 lb 9.6 oz) 019 10:06 AM EDT Height - - Body Mass Index 39.98 10/27/2018 11:12 AM EDT documented in this encounter Progress Notes * Shon Schneider MD - 11/17/2018 10:00 AM EDT Subjective: Patient ID: Monica [...] B. 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 [facility] - CONSULT SLIDES FROM [facility]; [place], [place]: A. MEDIASTINUM, MASS, BIOPSY ([id number]; 03/22/2017): ? 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 ?Immunohistochemistry performed at the outside institution and reviewed at [facility] demonstrates the following staining profile in lesional cells: ? Positive - AE1/AE3, p40, PAX8, CD117, CD5(multifocal), CK7(scattered cells), synaptophysin, chromogranin ? Negative - CK20, TTF-1, GATA3, CD34 ? The immunohistochemical profile supports the above diagnosis. ? Ki67 (MIB-1) proliferation index performed at the referring institution and reviewed at [facility] is focally up to ~30%. NOTE: While diffuse synaptophysin and chromogranin expression is unusual for conventional thymic carcinoma, the overall histomorphology and immunophenotype is most in keeping with THYMIC SQUAMOUS CARCINOMA.?The extent of PAX8 and CD117 staining would be unusual for Nut carcinoma. B. MEDIASTINUM, ANTERIOR, 4.5 CM, ULTRASOUND GUIDED FINED NEEDLE ASPIRATION ([id number]; 03/22/17): The cytologic preparations were not reviewed [...] Second opinion with Dr. Roddy Vega in [place]. They reviewed the pathology and concurred they [...] by her . She continues to feel very well. She continues to tolerate the sunitinib well. She would be due to start the next cycle two days from now. Onthe current dose and schedule, she has no mouth sores. She has no nausea or vomiting. She is eatingwell and maintaining her weight Her energy level and strength are good. No chest pain or SOB. No cou gh. Her bowels are regular. Soc Hx: , lives in [place], [place] Tob - Never Etoh - rare [...] no distension. Musculoskeletal: She exhibits no edema. Lymphadenopathy: She [...] is normal. Vitals reviewed. Labs: WBC/ANC - 2.01/1390, Hgb/Hct - 7.7/22.9, Plts - 61,000. BUN/Cr - 13/0.6. Na - 135, Mg - 1.4, PO4 - 3.7. Lytes and LFTs o/w unremarkable TSH - 13.2, Free T4 - 1.02 (WNL) Assessment and Plan: Ms. Jaramillo is [...] trying. I spoke with Dr. Vega at [facility] [...] mg/day, 2 weeks followed by one w otoe-missouria off, with cycles repeated every three weeks. She has tolerated that well. She had a restaging CT scan done on 09/26/18 which was stable compared with 04/2019. Therefore, the sutent was continued. She has had problems with myelosuppression but has been able to continue. Labsfrom yesterday show worsened pancytopenia. We are going to hold therapy and recheck the CBC next week. We will call her with that result and, if better, have her go ahead with the next cycle. She will receive magnesium IV today and is going to receive a blood transfusion on 11/20. The TSH is elevated. She started synthroid on 10/26/18 at 25 mcg/day. Given the relatively short duration on synthroid and normal free T4, we will monitor for a few more weeks on the current dose before making a change. We will see her in 4 weeks and plan the next CT scan in late December. [facility] testing. Per the report, there were 3 [...] AM EDT Office Visit Hematology/Oncology at [address] [phone] Shon Schneider MD [facility] [place] [address] Ciara Pitts APRN [address] [place] [address] DR HEMATOLOGY [place] [address] 02/24/2024 9:30 AM EDT Infusion Hematology Oncology at [address] [phone] 03/02/2024 11:00 AM EDT Office Visit Hematology/Oncology at [address] [phone] Shon Schneider MD [facility] [place] [address] [address] HEMATOLOGY AND ONCOLOGY [place], [place] [address] 03/02/2024 12:30 PM EDT Infusion Hematology Oncology at [address] [phone] 03/09/2024 10:00 AM EDT Office Visit Hematology/Oncology at [address] [phone] Shon Schneider MD [facility] [place] [address] [address] HEMATOLOGY AND ONCOLOGY [place], [place] [address] 03/09/2024 10:30 AM EDT Infusion Hematology Oncology at [address] [phone] Scheduled Orders Name Type Priority Associated Diagnoses Orde r Schedule TSH Lab Routine Hypothyroidism, acquired Expected: 12/13/2018 (Approximate), Expires: 06/14/2019 T4, free Lab Routine Hypothyroidism, acquired Expected: 12/14/2018 (Approximate), Expires: 06/15/2019 documented as of this encounter Goals Goal [...] Priority Date/Time Associated Diagnosis Comments LAB SCAN 12/01/2018 12:00 AM EDT LAB SCAN 11/30/2018 12:00 AM EDT LAB SCAN 11/23/2018 12:00 AM EDT LAB SCAN 11/23/2018 12:00 AM EDT LAB SCAN 11/20/2018 12:00 AM EDT documented in this encounter Results * SCAN DOC: LAB (12/01/2018 12:00 AM EDT) Narrative 12/01/2018 12:00 AM EDT Ordered by an unspecified provider. Scanning Provider MEDIA MGR SCAN EXT O RDR/RSLT * SCAN DOC: LAB (11/30/2018 12:00 AM EDT) Narrative 11/30/2018 12:00 AM EDT Ordered by an unspecified provider. Scanning Provider MEDIA MGR SCAN EXT O RDR/RSLT * SCAN DOC: LAB (11/23/2018 12:00 AM EDT) Narrative 11/23/2018 12:00 AM EDT Ordered by an unspecified provider. Scanning Provider MEDIA MGR SCAN EXT O RDR/RSLT * SCAN DOC: LAB (11/23/2018 12:00 AM EDT) Narrative 11/23/2018 12:00 AM EDT Ordered by an unspecified provider. Scanning Provider MEDIA MGR SCAN EXT O RDR/RSLT * SCAN DOC: LAB (11/20/2018 12:00 AM EDT) Narrative 11/20/2018 12:00 AM EDT Ordered by an unspecified provider. Scanning Provider MEDIA MGR SCAN EXT O RDR/RSLT documented in this encounter Visit Diagnoses Diagnosis Thymic carcinoma Malignant neoplasm of thymus Hypothyroidism, acquired Unspecified hypothyroidism Thymic carcinoma Malignant neoplasm of thymus documented in this encounter Care Teams Ceramic Sprayer Relationship Specialty Start Date End Date Gloria Red MD [address] [place] [address] [place] [address] PCP - General Family Medicine 05/26/17 12/03/18 documented as of this encounter
--- OUTSIDE RECORDS SUMMARY | 2024-02-24 01:24 | XMS_ITS | Encounter Summary ---
Author Organization [facility] [place] [address] Care Team Providers Care Air Conditioning Service Technician Name Role Phone Gloria Red MD Primary Care Provider Reason for Visit * Reason Onset Date Comments Follow-up 11/24/2018 Encounter Details Date Type Department Care Team (Late st Contact Info) Description 11/24/2018 Telephone Hematology/Oncology at [address] [phone] Brionna Andrade RN Follow-up Social History Tobacco Use Types Packs/Day Years Used Date Smoking Tobacco: Never Smokeless Tobacco: Never Sex and Gender Information Value Date Recorded Sex Assigned at Not on file Gender Identity Not on file Sexual Orientation Not on file documented as of this encounter Miscellaneous Notes * Telephone Encounter - Brionna Andrade RN - 11/24/2018 8:57 AM EDT Reviewed labs with Dr. Schneider , pt's ANC is low at 0.93. She is to remain off sutent and get labs again next week. Pt will get one unit of PRBCs per PCP's order which is fine per Dr. Schneider. Pt can get 2 grams of IV magnesium but only wants one as she states she does not feel well when she gets two. Dr. Schneider is fine with this. Pt agrees with plan. documented in this encounter Plan of Treatment Upcoming Encounters Date Type Department Care Team (Late st Contact Info) Description 02/24/2024 9:00 AM EDT Office Visit Hematology/Oncology at [address] [phone] Shon Schneider MD [facility] [address] HEMATOLOGY AND ONCOLOGY [place], [place] [address] 02/24/2024 9:30 AM EDT Infusion Hematology Oncology at [address] [phone] 03/02/2024 11:00 AM EDT Office Visit Hematology/Oncology at [address] [phone] Shon Schneider MD [facility] [place] [address] HEMATOLOGY AND ONCOLOGY [place], [place] [address] 03/02/2024 12:30 PM EDT Infusion Hematology Oncology at [address] [phone] 03/09/2024 10:00 AM EDT Office Visit Hematology/Oncology at [address] [phone] Shon Schneider MD [facility] [place] [address] Ciara Pitts [address] HEMATOLOGY [place] [address] 03/09/2024 10:30 AM EDT Infusion Hematology Oncology at [address] [phone] documented as of this encounter Goals Goal [...] on filedocumented in this encounter Care Teams Air Conditioning Service Technician Relationship Specialty Start Date End Date Gloria Red MD [address] [place] [address] [place] [phone] PCP - General Family Medicine 05/26/17 12/03/18 documented as of this encounter
--- OUTSIDE RECORDS SUMMARY | 2024-02-24 01:24 | XMS_ITS | Encounter Summary ---
Author Organization [facility] [place] [address] Care Team Providers Care Dermatology Specialist Name Role Phone Gloria Red MD Primary Care Provider [phone] Reason for Visit * Reason Onset Date Comments Abnormal Labs 11/23/2018 Critical ANC Encounter Details Date Type Department Care Team (Late Contact Info) Description 11/23/2018 Telephone Hematology Oncology at [address] [phone] Eden Vieira RN Abnormal Labs (Critical ANC) Social History Tobacco Use Types Packs/Day Years Used Date Smoking Tobacco: Never Smokeless Tobacco: Never Sex and Gender Information Value Date Recorded Sex Assigned at Not on file Gender Identity Not on file Sexual Orientation Not on file documented as of this encounter Miscellaneous Notes * Telephone Encounter - Eden Vieira RN - 11/23/2018 2:53 PM EDT Lala from [facility] lab called with critical ANC of 0.93 on Monica Jaramillo. Called Liz at [facility] outpatient treatment center pt needs one unit of PRBC's for hgb of 7.4 based on standing orders they have from Dr. Red. Pt will also need mag infusion for mag of 1.3. Liz was to call the pt and set this up. documented in this encounter Plan of Treatment Upcoming Encounters Date Type Department Care Team (Late st Contact Info) Description 02/24/2024 9:00 AM EDT Office Visit Hematology/Oncology at [address] [phone] Shon Schneider MD [facility] [place] [address] [address] HEMATOLOGY AND ONCOLOGY [place], [place] [address] 02/24/2024 9:30 AM EDT Infusion Hematology Oncology at [address] [phone] 03/02/2024 11:00 AM EDT Office Visit Hematology/Oncology at [address] [phone] Shon Schneider MD [facility] [place] [address] [address] HEMATOLOGY AND ONCOLOGY [place], [place] [address] 03/02/2024 12:30 PM EDT Infusion Hematology Oncology at [address] [phone] 03/09/2024 10:00 AM EDT Office Visit Hematology/Oncology at [address] [phone] Shon Schneider MD [facility] [place] [address] Ciara Pitts, [address] [place] [address] 03/09/2024 10:30 AM EDT Infusion Hematology Oncology at [address] [phone] documented as of this encounter Goals Goal Patient Goal Type Associated Problems Recent Progress Patient-Stated? Author DH Home Medication Compliance and Understanding Patient Facing Action Plan On track( 019 3:22 PM EST) Ivana Ashraf, [facility] Note: Remain 95% or better adherent to chemotherapy without severe side effects as assessed by days supply and patient reported adverse events at each refill documented as of this encounter Visit Diagnoses Not on filedocumented in this encounter Care Teams Dermatology Specialist Relationship Specialty Start Date End Date Gloria Red MD [address] [place] [address] [place] [phone] PCP - General Family Medicine 05/26/17 12/03/18 documented as of this encounter
--- OUTSIDE RECORDS SUMMARY | 2024-02-24 01:24 | XMS_ITS | Encounter Summary ---
Author Organization [facility] Address [facility] [place] [address] Care Team Providers Care Cooperage Shop Supervisor Name Role Phone Gloria Red MD Primary Care Provider [phone] Reason for Referral * Consultation (Routine) - Closed Specialty Diagnoses / Procedures Referred By Contdelphine t Referred To Contact Hematology and Oncology Diagnoses Thymic carcinoma Pancytopenia Shon Schneider MD [facility] [place] [address] So Gaytan MD [facility] DR [place] [address] Referral ID Status Reason Start Date Expiration Date V isits Requested Visits Authorized [id number] Closed Consult, Test & Treat 11/30/2018 11/30/2019 1 1 Encounter Details Date Type Department Care Team (Late st Contact Info) Description 11/30/2018 Orders Only [place]ematology [place] [phone] Shon Schneider MD [facility] [place] [address] Thymic carcinoma; Pancytopenia Social History Tobacco Use Types Packs/Day Years Used Date Smoking Tobacco: Never Smokeless Tobacco: Never Sex and Gender Information Value Date Recorded Sex Assigned at Not on file Gender Identity Not on file Sexual Orientation Not on file documented as of this encounter Plan of Treatment Upcoming Encounters Date Type Department Care Team (Late st [facility] Info) Description 02/24/2024 9:00 AM EDT Office Visit Hematology/Oncology at [address] [phone] Shon Schneider MD [facility] [place] [address] HEMATOLOGY AND ONCOLOGY [place], [place] [address] 02/24/2024 9:30 AM EDT Infusion Hematology Oncology at [address] [phone] 03/02/2024 11:00 AM EDT Office Visit Hematology/Oncology at [address] [phone] Shon Schneider MD [facility] [place] [address] [address] HEMATOLOGY AND ONCOLOGY [place], [place] [address] 03/02/2024 12:30 PM EDT Infusion Hematology Oncology at [address] [phone] 03/09/2024 10:00 AM EDT Office Visit Hematology/Oncology at [address] [phone] Shon Schneider MD [facility] [place] [address] Ciara Pitts [address] HEMATOLOGY AND ONCOLOGY [place], [place] [address] 03/09/2024 10:30 AM EDT Infusion Hematology Oncology at [address] [phone] Scheduled Referrals Name Type Priority Associated Diagnoses Order Schedule Referral to Hematology and Oncology Outpatient Referral Routine Thymic carcinoma Pancytopenia Ordered: 11/30/2018 documented as of this encounter Goals Goal [...] Diagnosis Thymic carcinoma Malignant neoplasm of thymus Pancytopenia Other pancytopenia Thymic carcinoma Malignant neoplasm of thymus documented in this encounter Care Teams Cooperage Shop Supervisor Relationship Specialty Start Date End Date Gloria Red MD [address] [place] [address] [place] [phone] PCP - General Family Medicine 05/26/17 12/03/18 documented as of this encounter
--- OUTSIDE RECORDS SUMMARY | 2024-02-24 01:24 | XMS_ITS | Encounter Summary ---
Author Organization [facility] [place] [address] Care Team Providers Care Egg And Spice Mixer Name Role Phone Gloria Rde MD Primary Care Provider [phone] Reason for Visit * Reason Comments IV Medication Magnesium Encounter Details Date Type Department Care Team ([facility] Contact Info) Description 11/17/2018 10:30 AM EDT Infusion Hematology Oncology at [address] [phone] Thymic carcinoma Social History Tobacco Use Types Packs/Day Years Used Date Smoking Tobacco: Never Smokeless Tobacco: Never Sex and Gender Information Value Date Recorded Sex Assigned at Not on file Gender Identity Not on file Sexual Orientation Not on file documented as of this encounter Progress Notes * Indigo Price RN - 11/17/2018 10:30 AM EDT INFUSION THERAPY ADMINISTRATION NOTES DIAGNOSIS: Thymic cancer REASON FOR VISIT: 1 gm Magnesium infusion for Mag level of 1.4 11/16/18 IV ACCESS: Mediport GAUGE: 19G BLOOD RETURN: yes ANY S/S OF INFECTION/EXTRAVASATIONS: no signs of IV complications observed IV FLUSHED WITH: 20cc NS and 500 units Heparin IV DISCONTINUED: yes ASSESSMENT: Patient tolerated treatment well. PLAN: Return to clinic per routine. documented in this encounter Plan of Treatment Upcoming Encounters Date Type Department Care Team ([facility] Contact Info) Description 02/24/2024 9:00 AM EDT Office Visit Hematology/Oncology at [address] [phone] Shon Schneider MD [facility] [place] [address] HEMATOLOGY AND ONCOLOGY [place], [place] [address] [phone] 02/24/2024 9:30 AM EDT Infusion Hematology Oncology at [address] [phone] 03/02/2024 11:00 AM EDT Office Visit Hematology/Oncology at [address] [phone] Shon Schneider MD [facility] [place] [address] [place] [address] 03/02/2024 12:30 PM EDT Infusion Hematology Oncology at [address] [phone] 03/09/2024 10:00 AM EDT Office Visit Hematology/Oncology at [address] [phone] Shon Schneider MD [facility] [place] [address] [address] HEMATOLOGY AND ONCOLOGY [place], [place] [address] [phone] 03/09/2024 10:30 AM EDT Infusion Hematology Oncology at [address] [phone] documented as of this encounter Goals Goal Patient Goal Type Associated Problems Recent Progress Patient-Stated? Author DH Home Medication Compliance and Understanding Patient Facing Action Plan On track( 019 3:22 PM EST) Ivana Ashraf [facility] Note: [...] 1 g, Intravenous, ONCE, 1 dose, On Tue11/17/18 at 1115, Administer over 60 Minutes, Please give 1g Mg for Mg <1.6 New Bag 11/17/2018 11:14 AM EDT 1 g 100 mL/hr documented in this encounter Care Teams Egg And Spice Mixer Relationship Specialty Start Date End Date Gloria Red MD [address] [place] [address] [place] [address] PCP - General Family Medicine 05/26/17 12/03/18 documented as of this encounter
--- OUTSIDE RECORDS SUMMARY | 2024-02-24 01:24 | XMS_ITS | Encounter Summary ---
Author Organization [facility] [place] [address] Care Team Providers Care Accident Investigator Name Role Phone Jerzy Vidal MD Primary Care Provider [phone] Reason for Visit * Reason Onset Date Comments Results 12/08/2018 Encounter Details Date Type Department Care Team (Late Contact Info) Description 12/08/2018 Telephone Hematology Oncology at [address] [phone] Beti Celeste RN Results Social History Tobacco Use Types Packs/Day Years Used Date Smoking Tobacco: Never Smokeless Tobacco: Never Sex and Gender Information Value Date Recorded Sex Assigned at Not on file Gender Identity Not on file Sexual Orientation Not on file documented as of this encounter Miscellaneous Notes * Telephone Encounter - Beti Celeste RN - 12/08/2018 9:59 AM EDT Late note for 12/07 Received results of cbc done at [facility]. Reviewed by Dee Dee CLEMENT. Reported to patient that lab improved. Patient aware. documented in this encounter Plan of Treatment Upcoming Encounters Date Type Department Care Team (Late Contact Info) Description 02/24/2024 9:00 AM EDT Office Visit Hematology/Oncology at [address] [phone] Shon Schneider MD [facility] [place] [address] [address] HEMATOLOGY AND ONCOLOGY [place], [place] [address] 02/24/2024 9:30 AM EDT Infusion Hematology Oncology at [address] [phone] 03/02/2024 11:00 AM EDT Office Visit Hematology/Oncology at [address] [phone] Shon Schneider MD [facility] [place] [address] [address] HEMATOLOGY AND ONCOLOGY [place], [place] [address] 03/02/2024 12:30 PM EDT Infusion Hematology Oncology at [address] [phone] 03/09/2024 10:00 AM EDT Office Visit Hematology/Oncology at [address] [phone] Shon Schneider MD [facility] [place] [address] [address] HEMATOLOGY AND ONCOLOGY [place], [place] [address] 03/09/2024 10:30 AM EDT Infusion Hematology Oncology at [address] [phone] documented as of this encounter Goals Goal Patient Goal Type Associated Problems Recent Progress Patient-Stated? Author DH Home Medication Compliance and Understanding Patient Facing Action Plan On track(02/25/2 019 3:22 PM EST) No Ivana Vanegas, [facility] Note: Remain 95% or better adherent to chemotherapy without severe side effects as assessed by days supply and patient reported adverse events at each refill documented as of this encounter Visit Diagnoses Not on filedocumented in this encounter Care Teams Accident Investigator Relationship Specialty Start Date End Date Jerzy Vidal MD [address] [place] [address] [place] [address] PCP - [facility] Medicine 12/04/18 documented as of this encounter
--- OUTSIDE RECORDS SUMMARY | 2024-02-24 01:24 | XMS_ITS | Encounter Summary ---
Author Organization [facility] [address] Care Team Providers Care Fur Cutter Name Role Phone Jerzy Vidal MD Primary Care Provider Reason for Visit * Reason Onset Date Comments Medication Refill 12/22/2018 gareth Encounter Details Date Type Department Care Team (Late st Contact Info) Description 12/22/2018 Telephone Hematology/Oncology at [address] [phone] Brionna Andrade RN Medication Refill (sutent) Social History Tobacco Use Types Packs/Day Years Used Date Smoking Tobacco: Never Smokeless Tobacco: Never Sex and Gender Information Value Date Recorded Sex Assigned at Not on file Gender Identity Not on file Sexual Orientation Not on file documented as of this encounter Miscellaneous Notes * Telephone Encounter - Brionna Andrade RN - 12/22/2018 9:36 AM EDT Oral Chemotherapy Check Note 12/22/2018 Monica Jaramillo, 1955 Prescriptions for oral chemotherapy were reviewed as follows: Oral Chemotherapy Order sunitib: Order details: ?? Dose: 25 mg ?? Route: oral ?? Quantity to be dispensed #: 14 doses ?? Number of refills: 6 ?? Instructions: Take 25 mg po daily ?? Cycle number and length: 14 days on 7 days off ?? Start date: January 05 Plan of care compared to information in the medical record, including note from provider on 12/18/18 (date). The prescription was found to be complete and accurate. It was printed, reviewed and signed by provider and manually fax[facility] [phone]. documented in this encounter Plan of Treatment Upcoming Encounters Date Type Department Care Team (Late st Contact Info) Description 02/24/2024 9:00 AM EDT Office Visit Hematology/Oncology at [address] [phone] [facility] [place] [address] Ciara Pitts [address] HEMATOLOGY AND ONCOLOGY [place], [place] [address] 02/24/2024 9:30 AM EDT Infusion Hematology Oncology at [address] [phone] 03/02/2024 11:00 AM EDT Office Visit Hematology/Oncology at [address] [phone] [facility] [place] [address] HEMATOLOGY AND ONCOLOGY [place], [place] [address] 03/02/2024 12:30 PM EDT Infusion Hematology Oncology at [address] [phone] 03/09/2024 10:00 AM EDT Office Visit Hematology/Oncology at [address] [phone] [facility] [place] [address] Ciara Pitts APRN [address] [place] [address] DR HEMATOLOGY AND ONCOLOGY [place], [place] [id number] 03/09/2024 10:30 AM EDT Infusion Hematology Oncology at [address] [phone] documented as of this encounter Goals Goal [...] on filedocumented in this encounter Care Teams Fur Cutter Relationship Specialty Start Date End Date Jerzy Vidal MD [address] [place] [address] [place], [place] [address] PCP - [facility] Medicine 12/04/18 documented as of this encounter
--- OUTSIDE RECORDS SUMMARY | 2024-02-24 01:24 | XMS_ITS | Encounter Summary ---
Author Organization [facility] Address [facility] [place] [address] Care Team Providers Care Banana Carrier Name Role Phone Jerzy Vidal MD Primary Care Provider [phone] Encounter Details Date Type Department Care Team (Late st Contact Info) Description 12/19/2018 3:30 PM EDT Office Visit Hematology [place] [phone] Shon Schneider MD [facility] [place] [address] Thymic carcinoma; Pancytopenia; Hypothyroidism, unspecified type Social History Tobacco Use Types Packs/Day Years Used Date Smoking Tobacco: Never Smokeless Tobacco: Never Sex and Gender Information Value Date Recorded Sex Assigned at Not on file Gender Identity Not on file Sexual Orientation Not on file documented as of this encounter Last Filed Vital Signs Vital Sign Reading Time Taken Comments Blood Pressure 127/73 12/19/2018 3:23 PM EDT Pulse 86 12/19/2018 3:23 PM EDT Temperature 36.2 ??C (97.2 ??F) 12/19/2018 3:23 PM ED T Respiratory Rate 16 12/19/2018 3:23 PM EDT Oxygen Saturation 100% 12/19/2018 3:23 PM EDT Inhaled Oxygen Concentration - - Weight 125.1 kg (275 lb 12.8 oz) 12/19/2018 3:23 PM EDT Height 175.3 cm (5' 9.02) 12/19/2018 3:23 PM ED T Body Mass Index 40.71 12/19/2018 3:23 PM EDT documented in this encounter Progress Notes * Shon Schneider MD - 12/19/2018 3:30 PM EDT Subjective: Patient ID: Monica Jaramillo [...] compression atelectasis. transferred to [facility] for further evaluation and workup and had [...] B. 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 [facility] - CONSULT SLIDES FROM [facility] [place], [place]: A. MEDIASTINUM, MASS, BIOPSY ([id number]; 03/22/2017): ? 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 ?Immunohistochemistry performed at the outside institution and reviewed at [facility] demonstrates the following staining profile in lesional cells: ? Positive - AE1/AE3, p40, PAX8, CD117, CD5(multifocal), CK7(scattered cells), synaptophysin, chromogranin ? Negative - CK20, TTF-1, GATA3, CD34 ? The immunohistochemical profile supports the above diagnosis. ? Ki67 (MIB-1) proliferation index performed at the referring institution and reviewed at [facility] is focally up to ~30%. NOTE: While diffuse synaptophysin and chromogranin expression is unusual for conventional thymic carcinoma, the overall histomorphology and immunophenotype is most in keeping with THYMIC SQUAMOUS CARCINOMA.?The extent of PAX8 and CD117 staining would be unusual for Nut carcinoma. B. MEDIASTINUM, ANTERIOR, 4.5 CM, ULTRASOUND GUIDED FINED NEEDLE ASPIRATION ([id number]; 03/22/17): The cytologic preparations were not reviewed [...] Second opinion with Dr. Roddy Vega in [place]. They reviewed the pathology and concurred they [...] abdominal wall hernias without evidence of complications. 2. H/o atrial fibrillation 3. HTN 4. Echocardiogram 06/20/18 ([facility]) - Summary: 1. Preserved LV function [...] she is accompanied by her . She has continued to feel great. She is eating well and maintaining her weight Her energy level and strength are good. No chest pain or SOB. No cough. Her bowels are regular. Soc Hx: , lives in [place], [place] Tob - Never Etoh - rare [...] Her behavior is normal. Vitals reviewed. Labs: Recent Results (from the past 24 hour(s)) Magnesium Result Value Ref Range Magnesium 0.68 (L) 0.69 - 1.07 mmol/L Comprehensive metabolic panel (non-fasting) Result Value Ref Range Glucose Lvl 118 65 - 199 mg/dL BUN 10 8 - 18 mg/dL Creatinine 0.62 (L) 0.70 - 1.20 mg/dL Sodium 143 135 - 145 mmol/L Potassium 3.7 3.5 - 5.0 mmol/L Chloride 102 98 - 107 mmol/L CO2 28 22 - 31 mmol/L Anion Gap 13 5 - 15 mmol/L Calcium 9.6 8.5 - 10.5 mg/dL Total Protein 7.4 6.1 - 8.0 gm/dL Albumin 4.1 3.2 - 5.2 gm/dL AST 12 0 - 30 unit/L ALT 9 0 - 30 unit/L Alk Phos 44 40 - 104 unit/L Total Bilirubin 0.7 0.2 - 1.3 mg/dL eGFR 97 >=60 mL/min/1.73 m?? eGFR 113 >=60 mL/min/1.73 m?? Hemogram Result Value Ref Range WBC 4.6 4.0 - 9.5 x10(3)/mcL RBC 2.16 (L) 4.00 - 5.21 x10(6)/mcL Hemoglobin 8.0 (L) 11.7 - 15.5 gm/dL Hematocrit 24.8 (L) 35.7 - 45.8 % MCV 114.8 (H) 82.6 - 94.4 fL MCH 37.0 (H) 27.1 - 32.0 pg MCHC 32.3 31.7 - 35.0 gm/dL Platelets 158 145 - 357 x10(3)/mcL RDWSD 84.6 (H) 37.0 - 46.0 fL RDWCV 20.7 (H) 11.5 - 14.1 % MPV 10.4 7.6 - 12.9 fL nRBC % Auto 0.0 % nRBC Abs Auto 0.000 0.000 - 0.000 x10(3)/mcL Differential, Automated Result Value Ref Range Neutrophils % 66.0 % Neutr Abs (ANC) 3.00 1.70 - 6.10 x10(3)/mcL Lymphocytes % 16.5 % Lymphocytes Abs 0.8 (L) 0.9 - 3.2 x10(3)/mcL Monocytes % 15.8 % Monocyte Abs 0.7 0.3 - 0.9 x10(3)/mcL Eosinophils % 1.1 % Eosinophils Abs 0.0 0.0 - 0.4 x10(3)/mcL Basophils % 0.2 % Basophils Abs 0.0 0.0 - 0.1 x10(3)/mcL Immature Gran % 0.40 % [place] Gran Abs 0.02 0.00 - 0.04 x10(3)/mcL CT personally reviewed, report above Assessment and [...] trying. I spoke with Dr. Vega at [facility]. There were no clinical trials available there. [...] the next cycle on 11/19/18 but it has been held due to persistent pancytopenia. Because of the persistence of this she was referred to Hematology and saw Dr. Gaytan on 12/04/18. A BM biopsy was recommended to see if there is a primary underlying BM disorder such as MDS. In the meantime, the WBC and Plts have improved although she remains anemic. She is hoping the Hgb will begin to improve also. We discussed howthe results of the BM bx may impact our treatment approach and I discussed this with Dr. Gaytan as well. It seems likely that, if she did have MDS, the main treatment at this point would be ESAs. We discussed that there is some concern about using these in the setting solid tumors, although I think it is still an option vs transfusing as needed. After this discussion, the plan is to forego the BMbx for now and monitor. She had a restaging CT scan done today. This shows things to be stable. Our plan is to continue thesutent but will reduce the dose further to 25 mg per day, 14 days on and 7 days off with plans to repeat the cycle every 21 days depending on tolerance. I will plan to see her in about two weeks in [facility] and recheck the counts and start this then. A new prescription for sutent was written today isatu use of the dose change. The TSH done on 12/15 was WNL. Will have her continue the same dose of synthroid. Foundation One testing. Per the report, there [...] AM EDT Office Visit Hematology/Oncology at [address] [phone] Shon Schneider MD [facility] [place] [address] Ci[address] Pitts [address] HEMATOLOGY [place] [address] 02/24/2024 9:30 AM EDT Infusion Hematology Oncology at [address] [phone] 03/02/2024 11:00 AM EDT Office Visit Hematology/Oncology at [address] [phone] Shon Schneider MD [facility] [place] [address] Ciara Pitts [address] HEMATOLOGY [place] [address] 03/02/2024 12:30 PM EDT Infusion Hematology Oncology at [address] [phone] 03/09/2024 10:00 AM EDT Office Visit Hematology/Oncology at [address] [phone] Shon Schneider MD [facility] [place] [address] Ciara Pitts APRN [address] [place] [address] DR HEMATOLOGY AND ONCOLOGY [place], [place] [address] 03/09/2024 10:30 AM EDT Infusion Hematology Oncology at [address] [phone] documented as of this encounter Goals Goal [...] Priority Date/Time Associated Diagnosis Comments LAB SCAN 12/28/2018 12:00 AM EDT documented in this encounter Results * SCAN DOC: LAB (12/28/2018 12:00 AM EDT) Narrative 12/28/2018 12:00 AM EDT Ordered by an unspecified provider. Scanning Provider MEDIA MGR SCAN EXT O RDR/RSLT documented in this encounter Visit Diagnoses Diagnosis Thymic carcinoma Malignant neoplasm of thymus Pancytopenia Other pancytopenia Hypothyroidism, unspecified type Thymic carcinoma Malignant neoplasm of thymus documented in this encounter Care Teams Banana Carrier Relationship Specialty Start Date End Date Jerzy Vidal MD [address] [place] [address] [place] [address] PCP - [facility] Medicine 12/04/18 documented as of this encounter
--- OUTSIDE RECORDS SUMMARY | 2024-02-24 01:24 | XMS_ITS | Encounter Summary ---
Author Organization [facility] [place] [address] Care Team Providers Care Technical Support Analyst Name Role Phone Gloria Red MD Primary Care Provider [phone] Reason for Referral * Diagnostic Test (Routine) - Closed Specialty Diagnoses / Procedures Referred By Franklyn del rio Referred To Contact Radiology Diagnoses Thymic carcinoma Procedures CT Chest Abdomen Pelvis w Contrast (Generic) Shon Schneider MD [facility] [place] [address] [facility] [place] [address] Referral ID Status Reason Start Date Expiration Date V isits Requested Visits Authorized [id number] Closed Specialty Service Requested 12/12/2018 03/12/2019 1 1 Encounter Details Date Type Department Care Team (Late st Contact Info) Description 11/30/2018 Orders Only Hematology [place] [address] Shon Schneider MD [facility] [place] [address] Thymic carcinoma; Pancytopenia; Hypomagnesemia Social History Tobacco Use Types Packs/Day [...] AM EDT Office Visit Hematology/Oncology at [address] [phone] Shon Schneider MD [facility] [place] [place] [address] [address] HEMATOLOGY [place] [address] 02/24/2024 9:30 AM EDT Infusion Hematology Oncology at [address] [phone] 03/02/2024 11:00 AM EDT Office Visit Hematology/Oncology at [address] [phone] Shon Schneider MD [facility] [place] [place] [address] [address] HEMATOLOGY AND ONCOLOGY [place], [place] [address] 03/02/2024 12:30 PM EDT Infusion Hematology Oncology at [address] [phone] 03/09/2024 10:00 AM EDT Office Visit Hematology/Oncology at [address] [phone] Shon Schneider MD [facility] [place] [place] [address] Ciara Pitts [address] HEMATOLOGY AND ONCOLOGY [place], [place] [address] 03/09/2024 10:30 AM EDT Infusion Hematology Oncology at [address] [phone] documented as of this encounter Goals Goal Patient Goal Type Associated Problems Recent Progress Patient-Stated? Author MICHAEL Home Medication Compliance and Understanding Patient Facing Action Plan On track( 019 3:22 PM EST) Ivana Ashraf, [facility] Note: Remain 95% or better adherent to chemotherapy without severe side effects as assessed by days supply and patient reported adverse events at each refill documented as of this encounter Results * CT Chest Abdomen [...] please contact the number below. ? Narrative 12/19/2018 2:33 PM EDT EXAMINATION: CT CHEST ABDOMEN PELVIS W CONTRAST (GENERIC) CLINICAL HISTORY: Thymic carcinoma, on therapy with sutent. ??REstaging - please compare with outside imaging from 09/2018. TECHNIQUE: Helical CT of the chest, abdomen, and pelvis was performed following intravenous administration of contrast. Administered 120.0 ml of OMNIPAQUE 350.00 mg/ml. Oral contrast was administered. COMPARISON: CT scan from [facility] dated 09/26/2018 FINDINGS: Chest: Lungs and large [...] contrast was administered. COMPARISON: CT scan from [facility] dated 09/26/2018 FINDINGS: Chest: Lungs and large [...] this report, please contact the number below. Electronically signed by: Dariana Schulte [facility]([phone]), at 12/19/2018 2:33 PM Shon Schneider MD IMG CT ORDERABLES * (ABNORMAL) Magnesium (12/19/2018 11:05 AM EDT) Magnesium 0.68(L) 0.69 - 1.07 mmol/L [facility] Blood specimen (specimen) 12/19/2018 11:05 AM EDT 12/19/2018 11:35 AM EDT Narrative Resulting Agency Comment Spec In Lab Shon Schnieder MD CHEMISTRY ORDERABLES [facility] [place] [address] * (ABNORMAL) Comprehensive metabolic panel (non-fasting) (12/19/2018 11:05 AM EDT) Glucose 118 65 - 199 mg/dL [facility] Comment:Diabetes: >=200 mg/d L plus symptoms Blood Urea Nitrogen 10 8 - 18 mg/dL [facility] Creatinine 0.62(L) 0.70 - 1.20 mg/dL [facility] Sodium 143 135 - 145 mmol/L [facility] Potassium 3.7 3.5 - 5.0 mmol/L [facility] Comment: Please note: ??Patients with WBC >100,000 may have falsely elevated Potassium levels. ??For accurate Potassium quantification in these patients send serum separator tube (gold top) for subsequent determinations. ??Contact the Clinical Chemistry Laboratory if there are any questions. Chloride 102 98 - 107 mmol/L [facility] Carbon Dioxide 28 22 - 31 mmol/L [facility] Anion Gap 13 5 - 15 mmol/L [facility] Calcium 9.6 8.5 - 10.5 mg/dL [facility] Protein, Total 7.4 6.1 - 8.0 gm/dL [facility] Albumin 4.1 3.2 - 5.2 gm/dL [facility] Aspartate Aminotransferase 12 0 - 30 unit/L [facility] Alanine Aminotransferase 9 0 - 30 unit/L [facility] Alkaline Phosphatase 44 40 - 104 unit/L [facility] Bilirubin, Total 0.7 0.2 - 1.3 mg/dL [facility] Est Glomerular Filtration Rate 97 >=60 mL/min/1. 73 m?? [facility] Comment: The eGFR was calculated using the CKD-EPI equation. As with all creatinine based estimates of kidney function, eGFR values calculated with the CKD-EPI equation are not accurate in patients with acute kidney failure, extremes of body mass or the acutely ill. [email or web address] – [email or web address] eGFR 113 >=60 mL/min/1. 73 m?? [facility] Comment: The eGFR was calculated using the CKD-EPI equation. As with all creatinine based estimates of kidney function, eGFR values calculated with the CKD-EPI equation are not accurate in patients with acute kidney failure, extremes of body mass or the acutely ill. [email or web address]/[email or web address] Blood specimen (specimen) 12/19/2018 11:05 AM EDT 12/19/2018 11:35 AM EDT Narrative Resulting Agency Comment Spec In Lab Shon Schneider MD CHEMISTRY ORDERABLES [facility] [place] [address] documented in this encounter Visit Diagnoses Diagnosis Thymic carcinoma Malignant neoplasm of thymus Pancytopenia Other pancytopenia Hypomagnesemia Disorders of magnesium metabolism 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 documented in this encounter Care Teams Technical Support Analyst Relationship Specialty Start Date End Date Gloria Red MD [address] [place] [address] [place] [phone] PCP - General Family Medicine 05/26/17 12/03/18 documented as of this encounter
--- OUTSIDE RECORDS SUMMARY | 2024-02-24 01:24 | XMS_ITS | Encounter Summary ---
Author Organization [facility] [place] [address] Care Team Providers Care Port Steward Name Role Phone Jerzy Vidal MD Primary Care Provider Reason for Visit * Reason Onset Date Comments Labs Only 02/16/2019 Lab tracking Encounter Details Date Type Department Care Team (Late st Contact Info) Description 02/16/2019 Telephone Hematology Oncology at [address] [phone] Eden Vieira, RN Labs Only (Lab tracking) Social History Tobacco Use Types Packs/Day Years Used Date Smoking Tobacco: Never Smokeless Tobacco: Never Sex and Gender Information Value Date Recorded Sex Assigned at Not on file Gender Identity Not on file Sexual Orientation Not on file documented as of this encounter Miscellaneous Notes * Telephone Encounter - Eden Vieira, RN - 02/16/2019 9:54 AM EDT LAB TRACKING Brayan Jaramillo [phone] DIAGNOSIS: thymic cancer LABS ORDERED: cbc diff, cmp, mag MEDICATIONS: Sutent Standing transfusion [facility] Assessment/Plan: Labs reviewed by Dr Schneider. Pt is on week off Sutent. Due to start another cycle next week. Seeing Dr. Schneider today in clinic. Pt continues Amiloride to 5 mg daily. Will check labs again next and review with Dr Schneider. Results for IGNACIO BRAYAN Yehuda ( ) as of 02/16/2019 09:59 Ref. Range 02/01/2019 00:00 02/08/2019 00:00 02/09/2019 00:00 02/15/2019 00:00 WBC Unknown 3.1 4.3 3.8 Hemoglobin Unknown 10.1 11.1 10.7 Hematocrit Unknown 30.4 33.1 31.8 Platelets Unknown 105 114 108 Neutr Abs (ANC) Unknown 1.92 2.41 2.39 Sodium Unknown 138 Potassium Unknown 4.3 3.8 BUN Unknown 11 13 13 Creatinine Unknown 0.50 0.60 0.70 Calcium Unknown 9.6 9.4 Magnesium Latest Units: mg/dL 1.1 1.5 1.4 Alk Phos Unknown 61 AST Unknown 37 26 ALT Unknown 22 21 TSH Unknown 3.79 documented in this encounter Plan of Treatment Upcoming Encounters Date Type Department Care Team (Late st Contact Info) Description 02/24/2024 9:00 AM EDT Office Visit Hematology/Oncology at [address] [phone] Shon Shcneider MD [facility] [place] [address] HEMATOLOGY AND ONCOLOGY [place], [place] [address] 02/24/2024 9:30 AM EDT Infusion Hematology Oncology at [address] [phone] 03/02/2024 11:00 AM EDT Office Visit Hematology/Oncology at [address] [phone] Shon Schneider MD [facility] [place] [address] [address] HEMATOLOGY AND ONCOLOGY [place], [place] [address] 03/02/2024 12:30 PM EDT Infusion Hematology Oncology at [address] [phone] 03/09/2024 10:00 AM EDT Office Visit Hematology/Oncology at [address] [phone] Shon Schneider MD [facility] [place] [address] Ciara Pitts DRAWING [employer] [address] [place] [address] [place] [address] 03/09/2024 10:30 AM EDT Infusion Hematology Oncology at [address] [phone] documented as of this encounter [...] Associated Diagnosis Comments CBC (WITH DIFF) Routine 02/15/2019 TSH Routine 02/15/2019 MAGNESIUM Routine 02/15/2019 COMPREHENSIVE METABOLIC PANEL Routine 02/15/2019 documented in this encounter Results * TSH (02/15/2019) Pathologist [facility] Thyroid Stimulating Hormone 3.79 Blood specimen (specimen) 02/15/2019 Shon Schneider MD CHEMISTRY ORDERABLES * Magnesium (02/15/2019) Magnesium 1.4 mg/dL Blood specimen (specimen) 02/15/2019 Shon Schneider MD CHEMISTRY ORDERABLES * Comprehensive metabolic panel (non-fasting) (02/15/2019) Blood Urea Nitrogen 13 Creatinine 0.70 Potassium 3.8 Calcium 9.4 Aspartate Aminotransferase 26 Alanine Aminotransferase 21 Blood specimen (specimen) 02/15/2019 Shon Schneider MD CHEMISTRY ORDERABLES * CBC (with Diff) (02/15/2019) Pathologist [facility] White Blood Cell 3.8 Hemoglobin 10.7 Hematocrit 31.8 Platelet 108 Neutrophil Absolute (ANC) - Automated 2.39 Blood specimen (specimen) 02/15/2019 Shon Schneider MD HEMATOLOGY ORDERABLE S documented in this encounter Visit Diagnoses Not on filedocumented in this encounter Care Teams Port Steward Relationship Specialty Start Date End Date Jerzy Vidal MD [address] [place] [address] [place] [address] PCP - [facility] Medicine 12/04/18 documented as of this encounter
--- OUTSIDE RECORDS SUMMARY | 2024-02-24 01:24 | XMS_ITS | Encounter Summary ---
Author Organization [facility] [place] [address] Care Team Providers Care Speedboat Operator Name Role Phone Gloria Red MD Primary Care Provider [phone] Reason for Visit * Reason Onset Date Comments Medication Refill 10/27/2018 Encounter Details Date Type Department Care Team (Late st Contact Info) Description 10/27/2018 Telephone Hematology/Oncology at [address] [phone] Brionna Andrade RN Medication Refill Social History Tobacco Use Types Packs/Day Years Used Date Smoking Tobacco: Never Smokeless Tobacco: Never Sex and Gender Information Value Date Recorded Sex Assigned at Not on file Gender Identity Not on file Sexual Orientation Not on file documented as of this encounter Miscellaneous Notes * Telephone Encounter - Brionna Andrade RN - 10/27/2018 12:39 PM EDT Oral Chemotherapy Check Note 10/27/2018 Monica Jaramillo, 1955 Prescriptions for oral chemotherapy were reviewed as follows: Oral Chemotherapy Order sunitib (sutent): Order details: ?? Dose: 37.5mg ?? Route: oral ?? Quantity to be dispensed #: 14 doses ?? Number of refills: 5 ?? Instructions: Take 37.5 mg by mouth daily. ?? Cycle number and length: 14 days on 7 days off (21 day cycle) ?? Start date: Already on ?? ed (Review Started on): Plan of care compared to information in the medical record, including note from provider on 10/27/18(date). The prescription was found to be complete and accurate. It was printed, reviewed and signed by provider and manually faxed to [facility] pharmacy [phone]. documented in this encounter Plan of Treatment Upcoming Encounters Date Type Department Care Team (Late st Contact Info) Description 02/24/2024 9:00 AM EDT Office Visit Hematology/Oncology at [address] [phone] Shon Schneider MD [facility] [place] [address] [place]AT[place] [address] 02/24/2024 9:30 AM EDT Infusion Hematology Oncology at [address] [phone] 03/02/2024 11:00 AM EDT Office Visit Hematology/Oncology at [address] [phone] Shon Schneider MD [facility] [place] [address] [address] HEMATOLOGY [place] [address] 03/02/2024 12:30 PM EDT Infusion Hematology Oncology at [address] [phone] 03/09/2024 10:00 AM EDT Office Visit Hematology/Oncology at [address] [phone] Shon Schneider MD [facility] [place] [address] Ciara Pitts APRN [address] [place] [address] DR HEMATOLOGY AND ONCOLOGY [place], [place] [phone] 03/09/2024 10:30 AM EDT Infusion Hematology Oncology at [address] [phone] documented as of this encounter Goals Goal [...] on filedocumented in this encounter Care Teams Speedboat Operator Relationship Specialty Start Date End Date Gloria Red MD [address] [place] [address] [place] [phone] PCP - General Family Medicine 05/26/17 12/03/18 documented as of this encounter
--- OUTSIDE RECORDS SUMMARY | 2024-02-24 01:24 | XMS_ITS | Encounter Summary ---
Author Organization [facility] [place] [address] Care Team Providers Care Customer Service Teller Name Role Phone Jerzy Vidal MD Primary Care Provider Encounter Details Date Type Department Care Team (Late st Contact Info) Description 01/05/2019 3:00 PM EDT Office Visit Hematology/Oncology at [address] [phone] Radha Godoy, RELISH MAKER [address] [place] [address] Thymus cancer Social History Tobacco Use Types Packs/Day Years Used Date Smoking Tobacco: Never Smokeless Tobacco: Never Sex and Gender Information Value Date Recorded Sex Assigned at Not on file Gender Identity Not on file Sexual Orientation Not on file documented as of this encounter Last Filed Vital Signs Vital Sign Reading Time Taken Comments Blood Pressure 128/60 01/05/2019 2:49 PM EDT Pulse 80 01/05/2019 2:49 PM EDT Temperature - - Respiratory Rate 18 01/05/2019 2:49 PM EDT Oxygen Saturation 99% 01/05/2019 2:49 PM EDT Inhaled Oxygen Concentration - - Weight 123.1 kg (271 lb 4.8 oz) 01/05/2019 2:49 PM EDT Height 175.3 cm (5' 9.02) 01/05/2019 2:49 PM ED T Body Mass Index 40.05 01/05/2019 2:49 PM EDT documented in this encounter Progress Notes * Radha Godoy, RELISH MAKER - 01/05/2019 3:00 PM EDT Subjective: Patient ID: Monica [...] review - CONSULT SLIDES FROM [facility]; [place], [place]: A. MEDIASTINUM, MASS, BIOPSY ([id number]; 03/22/2017): ? 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 ?Immunohistochemistry performed at the outside institution and reviewed at [facility] demonstrates the following staining profile in lesional cells: ? Positive - AE1/AE3, p40, PAX8, CD117, CD5(multifocal), CK7(scattered cells), synaptophysin, chromogranin ? Negative - CK20, TTF-1, GATA3, CD34 ? The immunohistochemical profile supports the above diagnosis. ? Ki67 (MIB-1) proliferation index performed at the referring institution and reviewed at [facility] is focally up to ~30%. NOTE: While diffuse synaptophysin and chromogranin expression is unusual for conventional thymic carcinoma, the overall histomorphology and immunophenotype is most in keeping with THYMIC SQUAMOUS CARCINOMA.?The extent of PAX8 and CD117 staining would be unusual for Nut carcinoma. B. MEDIASTINUM, ANTERIOR, 4.5 CM, ULTRASOUND GUIDED FINED NEEDLE ASPIRATION ([id number]; 03/22/17): The cytologic preparations were not reviewed [...] Second opinion with Dr. Roddy Vega in [place]. They reviewed the pathology and concurred they [...] required HPI: Ms. Jaramillo is seen in f/u thymic carcinoma. The history is summarized above. Interim History: Monica Jaramillo returns to clinic today for labs and toxicity assessment prior to resuming therapy with Sunitinib 25mg, daily. She reports she feels good although her hemoglobin and serum magnesium levels are low. She denies pain, fever, chills, night sweats or unusual bleeding. PMH, PSH, FH, and SH: Except as mentioned in the interim history, no change since last office visit. Review of Systems [...] time. Skin: Skin is warm and dry. There is pallor. Psychiatric: She has a normal mood and affect. Her behavior is normal. Vitals reviewed. Vitals: BP 128/60 (Patient Position: Sitting) Pulse 80 Resp 18 Ht 175.3 cm (5' 9.02) Wt 123.1 kg (271 lb 4.8 oz) SpO2 99% BMI 40.05 kg/m?? 01/04/19 LABs: WBC 6.3, Hgb./Hct. 8.4/26.1, Plts. 163, ANC 4.41. Chem: Na+/K+ 138/3.5, BUN/Creat. 12/0.6, AST 28, ALT <10, Alk. Phos, 51, Mg 1.1L. Assessment and Plan: 1. 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 2. Reviewed lab results with patient. Resume therapy with 25mg of Sunitinib daily. 3. Continues labs once a week. Return to [facility] infusion this weekend. 4. RTC in 2 weeks with labs for repeat evaluation. Radha Godoy, MSN, RELISH MAKER, AOCNP documented in this encounter Plan of Treatment Upcoming Encounters Date Type Department Care Team (Late st Contact Info) Description 02/24/2024 9:00 AM EDT Office Visit Hematology/Oncology at [address] [phone] Shon Schneider MD [facility] [place] [address] Ciara Pitts APRN [address] [place] [address] HEMATOLOGY AND ONCOLOGY [place], [place] [id number] 02/24/2024 9:30 AM EDT Infusion Hematology Oncology at [address] [phone] 03/02/2024 11:00 AM EDT Office Visit Hematology/Oncology at [address] [phone] Shon Schneider MD [facility] [place] [address] HEMATOLOGY AND ONCOLOGY [place], [place] [id number] 03/02/2024 12:30 PM EDT Infusion Hematology Oncology at [address] [phone] 03/09/2024 10:00 AM EDT Office Visit Hematology/Oncology at [address] [phone] Shon Schneider MD [facility] [place] [address] HEMATOLOGY [place] [address] 03/09/2024 10:30 AM EDT Infusion Hematology Oncology at [address] [phone] documented as of this encounter Goals Goal [...] Priority Date/Time Associated Diagnosis Comments LAB SCAN 01/18/2019 12:00 AM EDT LAB SCAN 01/18/2019 12:00 AM EDT LAB SCAN 01/18/2019 12:00 AM EDT LAB SCAN 01/12/2019 12:00 AM EDT documented in this encounter Results * SCAN DOC: LAB (01/18/2019 12:00 AM EDT) Narrative 01/18/2019 12:00 AM EDT Ordered by an unspecified provider. Scanning Provider MEDIA MGR SCAN EXT O RDR/RSLT * SCAN DOC: LAB (01/18/2019 12:00 AM EDT) Narrative 01/18/2019 12:00 AM EDT Ordered by an unspecified provider. Scanning Provider MEDIA MGR SCAN EXT O RDR/RSLT * SCAN DOC: LAB (01/18/2019 12:00 AM EDT) Narrative 01/18/2019 12:00 AM EDT Ordered by an unspecified provider. Scanning Provider MEDIA MGR SCAN EXT O RDR/RSLT * SCAN DOC: LAB (01/12/2019 12:00 AM EDT) Narrative 01/12/2019 12:00 AM EDT Ordered by an unspecified provider. Scanning Provider MEDIA MGR SCAN EXT O RDR/RSLT documented in this encounter Visit Diagnoses Diagnosis Thymus cancer 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 documented in this encounter Care Teams Customer Service Teller Relationship Specialty Start Date End Date Jerzy Vidal MD [address] [place] [address] [place] [address] PCP - [facility] Medicine 12/04/18 documented as of this encounter
--- OUTSIDE RECORDS SUMMARY | 2024-02-24 01:25 | XMS_ITS | Encounter Summary ---
Author Organization [facility] Address [facility] [place] [address] Care Team Providers Care Home Energy Consultant Supervisor Name Role Phone Gloria Red MD Primary Care Provider [phone] Encounter Details Date Type Department Care Team (Late st Contact Info) Description 09/08/2018 10:00 AM EDT Office Visit Hematology/Oncology at [address] [phone] Shon Schneider MD [facility] [place] [address] Thymic carcinoma; Hypomagnesemia; Other fatigue Social History Tobacco Use Types Packs/Day Years Used Date Smoking Tobacco: Never Smokeless Tobacco: Never Sex and Gender Information Value Date Recorded Sex Assigned at Not on file Gender Identity Not on file Sexual Orientation Not on file documented as of this encounter Last Filed Vital Signs Vital Sign Reading Time Taken Comments Blood Pressure 136/86 09/08/2018 9:57 AM EDT Pulse 75 09/08/2018 9:57 AM EDT Temperature 36.9 ??C (98.4 ??F) 09/08/2018 9:57 AM ED T Respiratory Rate 18 09/08/2018 9:57 AM EDT Oxygen Saturation 100% 09/08/2018 9:57 AM EDT Inhaled Oxygen Concentration - - Weight 123.3 kg (271 lb 12.8 oz) 09/08/2018 9:57 AM EDT Height 176.5 cm (5' 9.49) 09/08/2018 9:57 AM ED T Body Mass Index 39.58 09/08/2018 9:57 AM EDT documented in this encounter Progress Notes * Shon Schneider MD - 09/08/2018 10:00 AM EDT Subjective: Patient ID: Monica [...] - CONSULT SLIDES FROM [facility]; [place], [place]: A. MEDIASTINUM, MASS, BIOPSY ([id number]; 03/22/2017): ? 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 ?Immunohistochemistry performed at the outside institution and reviewed at [facility] demonstrates the following staining profile in lesional cells: ? Positive - AE1/AE3, p40, PAX8, CD117, CD5(multifocal), CK7(scattered cells), synaptophysin, chromogranin ? Negative - CK20, TTF-1, GATA3, CD34 ? The immunohistochemical profile supports the above diagnosis. ? Ki67 (MIB-1) proliferation index performed at the referring institution and reviewed at [facility] is focally up to ~30%. NOTE: While diffuse synaptophysin and chromogranin expression is unusual for conventional thymic carcinoma, the overall histomorphology and immunophenotype is most in keeping with THYMIC SQUAMOUS CARCINOMA.?The extent of PAX8 and CD117 staining would be unusual for Nut carcinoma. B. MEDIASTINUM, ANTERIOR, 4.5 CM, ULTRASOUND GUIDED FINED NEEDLE ASPIRATION ([id number]; 03/22/17): The cytologic preparations were not reviewed [...] Second opinion with Dr. Roddy Vega in [place]. They reviewed the pathology and concurred they [...] cycle 2 on 08/18/18 - 37.5 mg with plans to take for two weeks, then 1 week off. Cycle 3 2. H/o atrial fibrillation 3. HTN 4. [...] accompanied by her . She says she is feeling great, better than she has in a couple of years. She tolerated the sunitinib well. Her energy level and strength are good. Her sleeping is better. No nausea or vomiting. Her appetite is good and her weight is stable. No chest pain or SOB. No cough. Her bowels are regular. Soc Hx: , lives in [place], [place] Tob - Never Etoh - rare [...] is normal. Vitals reviewed. Labs: WBC/ANC - 3.12/2329, Hgb/Hct - 9.6/28.7, Plts - 85,000. BUN/Cr - 16/0.6. Mg - 1.4. Lytes and LFTs o/w unremarkable TSH - 3.6, Free T4 - 1.21 (WNL) Assessment and Plan: Ms. Jaramillo is [...] I spoke with Dr. Vega at [facility]. There were no clinical trials [...] 08/18/18 she began cycle 2 at 37.5 mg/day with plans to take this fo r 2 weeks followed by one week off, cycles repeated every three weeks. The labs are ok and she willstart the next cycle tomorrow. I will plan to see her in three weeks with a restaging CT scan priorto that visit. She will receive 1 gram of magnesium IV today and will continue to take PO magnesiumbid. [facility] One testing. Per the report, there [...] AM EDT Office Visit Hematology/Oncology at [address] [phone] Shon Schneider MD [facility] [place] [address] [address] HEMATOLOGY [place] [address] 02/24/2024 9:30 AM EDT Infusion Hematology Oncology at [address] [phone] 03/02/2024 11:00 AM EDT Office Visit Hematology/Oncology at [address] [phone] Shon Schneider MD [facility] [place] [address] [address] HEMATOLOGY AND ONCOLOGY [place], [place] [address] 03/02/2024 12:30 PM EDT Infusion Hematology Oncology at [address] [phone] 03/09/2024 10:00 AM EDT Office Visit Hematology/Oncology at [address] [phone] Shon Schneidre MD [facility] [place] [address] Ciara Pitts APRN [address] [place] [address] DR HEMATOLOGY [place] [address] 03/09/2024 10:30 AM EDT Infusion Hematology Oncology at [address] [phone] documented as of this encounter Goals Goal [...] Priority Date/Time Associated Diagnosis Comments LAB SCAN 09/28/2018 12:00 AM EDT LAB SCAN 09/07/2018 12:00 AM EDT documented in this encounter Results * SCAN DOC: LAB (09/28/2018 12:00 AM EDT) Narrative 09/28/2018 12:00 AM EDT Ordered by an unspecified provider. Scanning Provider MEDIA MGR SCAN EXT O RDR/RSLT * SCAN DOC: LAB (09/07/2018 12:00 AM EDT) Narrative 09/07/2018 12:00 AM EDT Ordered by an unspecified provider. Scanning Provider MEDIA MGR SCAN EXT O RDR/RSLT documented in this encounter Visit Diagnoses Diagnosis Thymic carcinoma Malignant neoplasm of thymus Hypomagnesemia Disorders of magnesium metabolism Other fatigue Thymic carcinoma Malignant neoplasm of thymus documented in this encounter Care Teams Home Energy Consultant Supervisor Relationship Specialty Start Date End Date Gloria Red MD [address] [place] [address] [place] [address] PCP - General Family Medicine 05/26/17 12/03/18 documented as of this encounter
--- OUTSIDE RECORDS SUMMARY | 2024-02-24 01:25 | XMS_ITS | Encounter Summary ---
[place] [address] Care Team Providers Care Rod Mill Operator Name Role Phone Gloria Red MD Primary Care Provider [phone] Reason for Visit * Reason Onset Date Comments Prior Authorization 08/04/2018 Angelo Encounter Details Date Type Department Care Team (Late st Contact Info) Description 08/04/2018 [place] [address] Ines Cartagena CPHT Prior Authorization (Angelo) Social History Tobacco Use Types Packs/Day Years Used Date Smoking Tobacco: Never Smokeless Tobacco: Never Sex and Gender Information Value Date Recorded Sex Assigned at Not on file Gender Identity Not on file Sexual Orientation Not on file documented as of this encounter Miscellaneous Notes * Telephone Encounter - Arely Aguilar - 08/07/2018 2:51 PM EST [facility], Prior Authorization Approval FILLABLE AT [facility]? yes APPROVAL DATES: 08/07/18-08/07/19 SPECIFIC INS REQUIREMENT: DH can fill the first time; then fill with [employer] CASE/REFERENCE # [id number] APPROVAL NOTIFICATION RECEIVED VIA: Call to insurance COPAY: $35 copay COPAY ASSISTANCE NEEDED?: No NOTES: We will call patient to discuss decreased dose. Pt will need to fill with [employer] after this fill. * Telephone Encounter - Ines Cartagena - 08/04/2018 2:11 PM EST [facility], Medication Prior Authorization Patient: Monica Jaramillo Patient : 1955 Patient Address: [address] [address] (home) Medication: Sutent 37.5 Subscriber Insurance: [employer] Physician: Shon Schneider Sent Via: Fax Laird: Ref/Case/PA#: Medication Strength Frequency Requested: Sutent 37.5mg once daily for 28 days, then 14 days off Qty/Day Supply: New Start: no, dose decrease Diagnosis & ICD-10 Code: C37 documented in this encounter Plan of Treatment Upcoming Encounters Date Type Department Care Team (Late st Contact Info) Description 02/24/2024 9:00 AM EDT Office Visit Hematology/Oncology at [address] [phone] Shon Schneider MD [facility] [place] [address] Ciara Pitts APRN [address] [place] [address] DR HEMATOLOGY AND ONCOLOGY [place], [place] [id number] 02/24/2024 9:30 AM EDT Infusion Hematology Oncology at [address] [phone] 03/02/2024 11:00 AM EDT Office Visit Hematology/Oncology at [address] [phone] Shon Schneider MD [facility] [address] HEMATOLOGY AND ONCOLOGY [place], [place] [phone] 03/02/2024 12:30 PM EDT Infusion Hematology Oncology at [address] [phone] 03/09/2024 10:00 AM EDT Office Visit Hematology/Oncology at [address] [phone] Shon Schneider MD [facility] [place] [address] HEMATOLOGY AND ONCOLOGY [place], [place] [phone] 03/09/2024 10:30 AM EDT Infusion Hematology Oncology at [address] [phone] documented as of this encounter Goals Goal [...] on filedocumented in this encounter Care Teams Rod Mill Operator Relationship Specialty Start Date End Date Gloria Red MD [address] [place] [address] [place] [phone] PCP - General Family Medicine 05/26/17 12/03/18 documented as of this encounter
--- OUTSIDE RECORDS SUMMARY | 2024-02-24 01:25 | XMS_ITS | Encounter Summary ---
Author Organization [facility] [place] [address] Care Team Providers Care Account Technician Name Role Phone Gloria Red MD Primary Care Provider Encounter Details Date Type Department Care Team (Late st Contact Info) Description 08/18/2018 Telephone Hematology/Oncology at [address] [phone] Pauline Bernal RN Social History Tobacco Use Types Packs/Day Years Used Date Smoking Tobacco: Never Smokeless Tobacco: Never Sex and Gender Information Value Date Recorded Sex Assigned at Not on file Gender Identity Not on file Sexual Orientation Not on file documented as of this encounter Miscellaneous Notes * Telephone Encounter - Pauline Bernal RN - 08/18/2018 4:19 PM EST Medical Oncology Nurse Telephone Note [facility] [place] [place] LAB TRACKING DIAGNOSIS: Thymic cancer LABS ORDERED: cbc diff, cmp,magnesium,phos MEDICATIONS: sutent 37.5 mg daily 2 weeks on, 2 weeks off Assessment/Plan: Reviewed Lab work with Dr Schneider in clinic. He ordered that she start the Sutent 37.5 mg daily for 2 weeks on, then 2 weeks off. Also because magnesium is still low, he ordered Magnesium IV infusion 2 gms on Tuesday08/21/18 at in [facility] and then again herein [facility] on 08/25 when she comes to see Desire Curran. Results for BRAYAN PIERRE ( ) as of 08/18/2018 17:57 Ref. Range 07/26/2018 00:00 07/28/2018 00:00 08/03/2018 00:00 08/11/2018 00:00 08/18/2018 00:00 WBC Unknown 2.7 3 2.05 2.3 3.0 Hemoglobin Unknown 8.9 8.8 8.2 7.3 8.1 Hematocrit Unknown 26.4 26.3 25.1 22.5 24.9 Platelets Unknown 40 45 50 61 81 Neutr Abs (ANC) Unknown 1.34 1.57 1.07 1.01 1.82 Sodium Unknown 137 Potassium Unknown 3.7 BUN Unknown 14 Creatinine Unknown 0.60 Glucose Lvl Unknown 107 Magnesium Latest Units: mg/dL 1 1.1 Phosphorus Unknown 4.9 Albumin Unknown 4.0 AST Unknown 28 ALT Unknown 13 Education: Called patient with Dr Schneider's instructions. Because of the lateness of the day today, nurse will make arrangements with [facility] Monday 08/21 folding rules printing machine operator to make arrangements for the IV magnesium infusion and then call her with the time to arrive. Patient verbalized understanding and agreed with this plan. She sked that the infusion here on Friday 08/25 be after she sees Desire Bishopmerajean due to ride issues. documented in this encounter Plan of Treatment Upcoming Encounters Date Type Department Care Team (Late st Contact Info) Description 02/24/2024 9:00 AM EDT Office Visit Hematology/Oncology at [address] [phone] Shon Schneider MD [facility] [place] [address] Ciara Pitts APRN [address] [place] [address] [place] [address] 02/24/2024 9:30 AM EDT Infusion Hematology Oncology at [address] [phone] 03/02/2024 11:00 AM EDT Office Visit Hematology/Oncology at [address] [phone] Shon Schneider MD [facility] [place] [address] HEMATOLOGY AND ONCOLOGY [place], [place] [phone] 03/02/2024 12:30 PM EDT Infusion Hematology Oncology at [address] [phone] 03/09/2024 10:00 AM EDT Office Visit Hematology/Oncology at [address] [phone] Shon Schneider MD [facility] [place] [address] [address] HEMATOLOGY AND ONCOLOGY [place], [place] [phone] 03/09/2024 10:30 AM EDT Infusion Hematology Oncology at [address] [phone] documented as of this encounter Goals Goal [...] Associated Diagnosis Comments CBC (WITH DIFF) Routine 08/18/2018 CBC (WITH DIFF) Routine 08/18/2018 PHOSPHORUS Routine 08/18/2018 MAGNESIUM Routine 08/18/2018 COMPREHENSIVE METABOLIC PANEL Routine 08/18/2018 documented in this encounter Results * CBC (with Diff) (08/18/2018) Neutrophil Absolute (ANC) - Automated 1.82 Blood specimen (specimen) 08/18/2018 Historical Provider HEMATOLOGY ORDERA BLES * Phosphorus (08/18/2018) Phosphorus 4.9 Blood specimen (specimen) 08/18/2018 Shon Schneider MD CHEMISTRY ORDERABLES * Magnesium (08/18/2018) Magnesium 1.1 mg/dL Blood specimen (specimen) 08/18/2018 Shon Schneider MD CHEMISTRY ORDERABLES * Comprehensive metabolic panel (non-fasting) (08/18/2018) Glucose 107 Blood Urea Nitrogen 14 Creatinine 0.60 Sodium 137 Potassium 3.7 Albumin 4.0 Aspartate Aminotransferase 28 Alanine Aminotransferase 13 Blood specimen (specimen) 08/18/2018 Shon Schneider MD CHEMISTRY ORDERABLES * CBC (with Diff) (08/18/2018) White Blood Cell 3.0 Hemoglobin 8.1 Hematocrit 24.9 Platelet 81 Blood specimen (specimen) 08/18/2018 Shon Schneider MD HEMATOLOGY ORDERABLE S documented in this encounter Visit Diagnoses Not on filedocumented in this encounter Care Teams Account Technician Relationship Specialty Start Date End Date Gloria Red MD [address] [place] [address] [place] [phone] PCP - General Family Medicine 05/26/17 12/03/18 documented as of this encounter
--- OUTSIDE RECORDS SUMMARY | 2024-02-24 01:25 | XMS_ITS | Encounter Summary ---
Author Organization [facility] [place] [address] Care Team Providers Care Picking Tech Name Role Phone Gloria Red MD Primary Care Provider [phone] Reason for Visit * Reason Comments IV Medication Magnesium infusion Encounter Details Date Type Department Care Team (Late st Contact Info) Description 09/08/2018 10:30 AM EDT Infusion Hematology Oncology at [address] [phone] Hypomagnesemia Social History Tobacco Use Types Packs/Day Years Used Date Smoking Tobacco: Never Smokeless Tobacco: Never Sex and Gender Information Value Date Recorded Sex Assigned at Not on file Gender Identity Not on file Sexual Orientation Not on file documented as of this encounter Progress Notes * Indigo Price RN - 09/08/2018 10:30 AM EDT INFUSION THERAPY ADMINISTRATION NOTES DIAGNOSIS: Thymic cancer CYCLE #: NA REASON FOR VISIT: To receive IV magnesium replacement. SUBJECTIVE: Monica offers no complaints. OBJECTIVE: Seen by provider. LAB DATA: IV ACCESS: Port accessed without difficulty, flushes readily with brisk blood return. Pre administration: Medication orders independently verified for drug name, route, and dosage per patient's height, weight and BSA by Paula CORTES and Bryce Hawley [facility]. REACTIONS (DESCRIPTION, TIME, INTERVENTION AND EFFECTIVENESS) none ASSESSMENT: Monica was awake, alert and tolerated treatment well. Port flushed with 20 cc of NS and 500 units ofheparin and de-accessed. PLAN: Return to clinic per routine. documented in this encounter Plan of Treatment Upcoming Encounters Date Type Department Care Team (Late st Contact Info) Description 02/24/2024 9:00 AM EDT Office Visit Hematology/Oncology at [address] [phone] Shon Schneider MD [facility] [place] [address] [address] HEMATOLOGY AND ONCOLOGY [place], [place] [address] 02/24/2024 9:30 AM EDT Infusion Hematology Oncology at [address] [phone] 03/02/2024 11:00 AM EDT Office Visit Hematology/Oncology at [address] [phone] Shon Schneider MD [facility] [place] [address] Ciara Pitts, [address] HEMATOLOGY AND ONCOLOGY [place], [place] [address] 03/02/2024 12:30 PM EDT Infusion Hematology Oncology at [address] [phone] 03/09/2024 10:00 AM EDT Office Visit Hematology/Oncology at [address] [phone] Shon Schneider MD [facility] [place] [address] Ciara Pitts [address] HEMATOLOGY AND ONCOLOGY [place], [place] [address] 03/09/2024 10:30 AM EDT Infusion Hematology Oncology at [address] [phone] documented as of this encounter Goals Goal Patient Goal Type Associated Problems Recent Progress Patient-Stated? Author DH Home Medication Compliance and Understanding Patient Facing Action Plan On track( 019 3:22 PM EST) No Ivana Vanegas [facility] Note: [...] 1 g, Intravenous, ONCE, 1 dose, On Tue09/08/18 at 1045, Administer over 60 Minutes New Bag 09/08/2018 10:58 AM EDT 1 g 100 mL/hr documented in this encounter Care Teams Picking Tech Relationship Specialty Start Date End Date Gloria Red MD [address] [place] [address] [place] [phone] PCP - General Family Medicine 05/26/17 12/03/18 documented as of this encounter
--- OUTSIDE RECORDS SUMMARY | 2024-02-24 01:25 | XMS_ITS | Encounter Summary ---
Author Organization [facility] [place] [address] Care Team Providers Care Site Director Name Role Phone Gloria Red MD Primary Care Provider [phone] Reason for Visit * Reason Onset Date Comments New Medication Request 06/12/2018 Encounter Details Date Type Department Care Team (Late st Contact Info) Description 06/12/2018 Telephone Hematology/Oncology at [address] [phone] Brionna Andrade RN New Medication Request Social History Tobacco Use Types Packs/Day Years Used Date Smoking Tobacco: Never Smokeless Tobacco: Never Sex and Gender Information Value Date Recorded Sex Assigned at Not on file Gender Identity Not on file Sexual Orientation Not on file documented as of this encounter Miscellaneous Notes * Telephone Encounter - Brionna Andrade RN - 06/12/2018 3:38 PM EST Oral Chemotherapy Check Note 06/12/2018 Monica Jaramillo, 1955 Prescriptions for oral chemotherapy were reviewed as follows: Oral Chemotherapy Order sutinib (sutent): Order details: ?? Dose: 50 mg ?? Route: rosangela ?? Quantity to be dispensed #: 28 doses ?? Number of refills: 5 ?? Instructions: Take 50 mg by mouth daily for 28 doses. Call clinic before starting medication. Take 50 mg per day for 4 weeks, followed by 2 weeks off. ??Cycles repeated every 6 weeks The prescription should be filled with whatever strength the pharmacy has available to achieve the prescribed dose, preferably taking the smallest number of capsules/tablets prescribed ?? Cycle number and length: 6 weeks (4 weeks on 2 weeks off) ?? Start date: After she calls clinic Plan of care compared to information in the medical record, including note from provider on 06/09/18 (date). The prescription was found to be complete and accurate. It was printed, reviewed and signed by provider and manually faxed to [facility] pharmacy. documented in this encounter Plan of Treatment Upcoming Encounters Date Type Department Care Team (Late st Contact Info) Description 02/24/2024 9:00 AM EDT Office Visit Hematology/Oncology at [address] [phone] Shon Schneider MD [facility] [place] [address] Ciara Pitts [address] [place] [address] 02/24/2024 9:30 AM EDT Infusion Hematology Oncology at [address] [phone] 03/02/2024 11:00 AM EDT Office Visit Hematology/Oncology at [address] [phone] Shon Schneider MD [facility] [place] [address] Ciara Pitts [address] [place] [address] 03/02/2024 12:30 PM EDT Infusion Hematology Oncology at [address] [phone] 03/09/2024 10:00 AM EDT Office Visit Hematology/Oncology at [address] [phone] Shon Schneider MD [facility] [place] [address] Ciara Pitts APRN [address] [place] [address] HEMATOLOGY AND ONCOLOGY [place], [place] [phone] 03/09/2024 10:30 AM EDT Infusion Hematology Oncology at [address] [phone] documented as of this [...] on filedocumented in this encounter Care Teams Site Director Relationship Specialty Start Date End Date Gloria Red MD [address] [place] [address] [place] [phone] PCP - General Family Medicine 05/26/17 12/03/18 documented as of this encounter
--- OUTSIDE RECORDS SUMMARY | 2024-02-24 01:25 | XMS_ITS | Encounter Summary ---
Author Organization [facility] [place] [address] Care Team Providers Care Valve Mechanic Name Role Phone Gloria Red MD Primary Care Provider [phone] Reason for Visit * Reason Onset Date Comments Prior Authorization 09/08/2018 Encounter Details Date Type Department Care Team (Late Contact Info) Description 09/08/2018 Telephone Hematology/Oncology at [address] [phone] Boaz Amos RN Prior Authorization Social History Tobacco Use Types Packs/Day Years Used Date Smoking Tobacco: Never Smokeless Tobacco: Never Sex and Gender Information Value Date Recorded Sex Assigned at Not on file Gender Identity Not on file Sexual Orientation Not on file documented as of this encounter Miscellaneous Notes * Telephone Encounter - Boaz Amos RN - 09/08/2018 12:48 PM EDT Automated telephone call from Rohan stating that Monica Jaramillo was approved under Dr Schneider from 09/08/18 through 12/07/18 for studies done at [facility], CPT code 32417 and [address]781. Auth # [id number], case #[id number]. documented in this encounter Plan of Treatment Upcoming Encounters Date Type Department Care Team (Late Contact Info) Description 02/24/2024 9:00 AM EDT Office Visit Hematology/Oncology at [address] [phone] Shon Schneider MD [facility] [place] [address] [address] HEMATOLOGY AND ONCOLOGY [place], [place] [address] 02/24/2024 9:30 AM EDT Infusion Hematology Oncology at [address] [phone] 03/02/2024 11:00 AM EDT Office Visit Hematology/Oncology at [address] [phone] Shon Schneider MD [facility] [place] [address] [address] HEMATOLOGY AND ONCOLOGY [place], [place] [address] 03/02/2024 12:30 PM EDT Infusion Hematology Oncology at [address] [phone] 03/09/2024 10:00 AM EDT Office Visit Hematology/Oncology at [address] [phone] Shon Schneider MD [facility] [place] [address] [address] HEMATOLOGY AND ONCOLOGY [place], [place] [address] 03/09/2024 10:30 AM EDT Infusion Hematology Oncology at [address] [phone] documented as of this encounter Goals Goal [...] on filedocumented in this encounter Care Teams Valve Mechanic Relationship Specialty Start Date End Date Gloria Red MD [address] [place] [address] [place] [phone] PCP - General Family Medicine 05/26/17 12/03/18 documented as of this encounter
--- OUTSIDE RECORDS SUMMARY | 2024-02-24 01:25 | XMS_ITS | Encounter Summary ---
Author Organization [facility] [place] [address] Care Team Providers Care Glove Tagger Name Role Phone Gloria Red MD Primary Care Provider Encounter Details Date Type Department Care Team (Late st Contact Info) Description 08/25/2018 11:15 AM EDT Office Visit Hematology/Oncology at [address] [phone] Desire Curran, ORACLE DEVELOPER [address] [facility] [place] [address] Thymic carcinoma Social History Tobacco Use Types Packs/Day Years Used Date Smoking Tobacco: Never Smokeless Tobacco: Never Sex and Gender Information Value Date Recorded Sex Assigned at Not on file Gender Identity Not on file Sexual Orientation Not on file documented as of this encounter Last Filed Vital Signs Vital Sign Reading Time Taken Comments Blood Pressure 134/82 08/25/2018 10:58 AM EDT Pulse 77 08/25/2018 10:58 AM EDT Temperature 36.7 ??C (98.1 ??F) 08/25/2018 1 0:58 AM EDT Respiratory Rate 18 08/25/2018 10:5 8 AM EDT Oxygen Saturation 100% 08/25/2018 10: 58 AM EDT Inhaled Oxygen Concentration - - Weight 120.8 kg (266 lb 6.4 oz) 019 10:58 AM EDT Height 176.5 cm (5' 9.49) 08/25/2018 1 0:58 AM EDT Body Mass Index 38.79 08/25/2018 10:58 AM EDT documented in this encounter Progress Notes * ConradDesire pena Santiago, ORACLE DEVELOPER - 08/25/2018 11:15 AM EDT Subjective: Patient ID: Monica [...] B. 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 [facility] review - CONSULT SLIDES FROM [facility]; [place], [place]: A. MEDIASTINUM, MASS, BIOPSY ([id number]; 03/22/2017): ? 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 ?Immunohistochemistry performed at the outside institution and reviewed at [facility] demonstrates the following staining profile in lesional cells: ? Positive - AE1/AE3, p40, PAX8, CD117, CD5(multifocal), CK7(scattered cells), synaptophysin, chromogranin ? Negative - CK20, TTF-1, GATA3, CD34 ? The immunohistochemical profile supports the above diagnosis. ? Ki67 (MIB-1) proliferation index performed at the referring institution and reviewed at [facility] is focally up to ~30%. NOTE: While diffuse synaptophysin and chromogranin expression is unusual for conventional thymic carcinoma, the overall histomorphology and immunophenotype is most in keeping with THYMIC SQUAMOUS CARCINOMA.?The extent of PAX8 and CD117 staining would be unusual for Nut carcinoma. B. MEDIASTINUM, ANTERIOR, 4.5 CM, ULTRASOUND GUIDED FINED NEEDLE ASPIRATION ([id number]; 03/22/17): The cytologic preparations were not reviewed [...] Second opinion with Dr. Roddy Vega in [place]. They reviewed the pathology and concurred they [...] and neutropenia). Stoppedcycle 1 three days early. 2. H/o atrial fibrillation 3. HTN 4. [...] cm 6. Clinical correlation required HPI Ms. Ella is seen in f/u thymic carcinoma. The history is summarized above. On presentation today, she is accompanied by her . She states she feels better than she has in a long time with the recent dose adjustment and tolerated this sunitinib well. Her main issue is maintaining her magnesium level which despite oral therapy remains low. She does not have any symptoms from this. She did note that she is also not having any mouth soreness which she did previously. 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 Fam Hx: No h/o cancer Review of Systems Constitutional: Negative. HENT: Negative. Respiratory: Negative. Gastrointestinal: Negative. Genitourinary: Negative. Musculoskeletal: Negative. Skin: Negative. Neurological: Negative. Psychiatric/Behavioral: Negative. All other systems reviewed and are negative. BP 134/82 (Patient Position: Sitting) Pulse 77 Temp 36.7 ??C (98.1 ??F) (Oral) Resp 18 Ht 176.5 cm (5' 9.49) Wt 120.8 kg (266 lb 6.4 oz) SpO2 100% BMI 38.79 kg/m?? Wt Readings from Last 3 Encounters: 08/25/18 120.8 kg (266 lb 6.4 oz) 08/04/18 120.8 kg (266 lb 6.4 oz) 07/21/18 122.5 kg (270 lb) Objective: Physical Exam Constitutional: She is oriented [...] Her behavior is normal. Vitals reviewed. Labs: 08/24/2018 CBC: WBC 4.4 hemoglobin 9.9 platelets 133 CMP: BUN 13 creatinine 0.6 calcium 9.7 sodium 139 potassium 3.9 total protein 8.4 albumin 4.3 totalbili 0.9 alk phos 50 ALT 13 AST 38 Magnesium 1.3 Phosphorus 4.6 Assessment and Plan: Ms. Jaramillo is a [...] not approved by her insurancecompany as pembrolizumab is not included on the NCCN list of recommended therapies. We submitted anappeal letter with supporting phase II data and [...] my reference, they recommend including results of twophase II trials. There is no guarantee that this would be approved then, but it would be worth trying. I spoke with Dr. Vega at [facility]. There were no clinical trials available there. His thought was to try sunitinib. She began sunitinib on 06/24/18 (50 pg PO per day for 4 weeks followed by 2 weeks off with cycles repeated every 6 weeks). She stopped this three days early due to myelosuppression, including grade 3 thrombocytopenia and grade 2 neutropenia. The next cycle had to be held due to neutropenia and we resumed treatment at a lower dose of 37.5 mg and discussed having her take that for 2 weeks on and 1 of f. this was tolerated quite well and she will continue on this regimen. She is currently 1 week into treatment and will return to clinic in 2 weeks time for evaluation for the next cycle. I am givingher 1 g of magnesium sulfate today IV and infusion and we will recheck her labs in 2 weeks. [facility] testing. Per the report, there were 3 genomic findings but no therapies associated with potential clinical benefit. documented in this encounter Plan of Treatment Upcoming Encounters Date Type Department Care Team (Late st Contact Info) Description 02/24/2024 9:00 AM EDT Office Visit Hematology/Oncology at [address] [phone] Shon Schneider MD [facility] [place] [address] Ciara Pitts [address] [place] [address] 02/24/2024 9:30 AM EDT Infusion Hematology Oncology at [address] [phone] 03/02/2024 11:00 AM EDT Office Visit Hematology/Oncology at [address] [phone] Shon Schneider MD [facility] [place] [address] Ciara Pitts [address] [place] [address] 03/02/2024 12:30 PM EDT Infusion Hematology Oncology at [address] [phone] 03/09/2024 10:00 AM EDT Office Visit Hematology/Oncology at [address] [phone] Shon Schneider MD [facility] [place] [address] Ciara Pitts APRN [address] [place] [address] DR HEMATOLOGY AND ONCOLOGY [place], [place] [phone] 03/09/2024 10:30 AM EDT Infusion Hematology Oncology at [address] [phone] documented as of this encounter [...] Priority Date/Time Associated Diagnosis Comments LAB SCAN 08/24/2018 12:00 AM EDT ALLERGY SCAN 08/18/2018 12:00 AM EST LAB SCAN 08/18/2018 12:00 AM EST documented in this encounter Results * SCAN DOC: LAB (08/24/2018 12:00 AM EDT) Narrative 08/24/2018 12:00 AM EDT Ordered by an unspecified provider. Scanning Provider MEDIA MGR SCAN EXT O RDR/RSLT * SCAN DOC: ALLERGY (08/18/2018 12:00 AM EST) Narrative 08/18/2018 12:00 AM EST Ordered by an unspecified provider. Scanning Provider MEDIA MGR SCAN EXT O RDR/RSLT * SCAN DOC: LAB (08/18/2018 12:00 AM EST) Narrative 08/18/2018 12:00 AM EST Ordered by an unspecified provider. 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 documented in this encounter Care Teams Glove Tagger Relationship Specialty Start Date End Date Gloria Red MD [address] [place] [address] [place] [phone] PCP - General Family Medicine 05/26/17 12/03/18 documented as of this encounter
--- OUTSIDE RECORDS SUMMARY | 2024-02-24 01:25 | XMS_ITS | Encounter Summary ---
Author Organization [facility] [place] [address] Care Team Providers Care Harmonic Analyst Name Role Phone Gloria Red MD Primary Care Provider [phone] Encounter Details Date Type Department Care Team (Late Contact Info) Description 09/26/2018 Ancillary Procedure [place] [address] Shon Schneider MD [facility] [place] [address] Social History Tobacco Use Types Packs/Day Years [...] 9:00 AM EDT Office Visit Hematology/Oncology at [address] [phone] Shon Schneider MD [facility] [place] [address] Ciara Pitts APRN [address] [place] [address] DR HEMATOLOGY [place] [address] 02/24/2024 9:30 AM EDT Infusion Hematology Oncology at [address] [phone] 03/02/2024 11:00 AM EDT Office Visit Hematology/Oncology at [address] [phone] Shon Schneider MD [facility] [place] [address] [address] HEMATOLOGY AND ONCOLOGY [place], [place] [address] [phone] 03/02/2024 12:30 PM EDT Infusion Hematology Oncology at [address] [phone] 03/09/2024 10:00 AM EDT Office Visit Hematology/Oncology at [address] [phone] Shon Schneider MD [facility] [place] [address] [address] HEMATOLOGY [place] [address] 03/09/2024 10:30 AM EDT Infusion Hematology Oncology at [address] [phone] documented as of this encounter Goals Goal [...] Name Priority Date/Time Associated Diagnosis Comments CT SCAN (SCAN) 09/26/2018 12:00 AM EDT FILM LIBRARY STORAGE ONLY CT CHEST ABDOMEN PELVIS Routine 09/26/2018 12:00 AM EDT documented in this encounter Results * Film Library- Storage Only CT Chest Abdomen Pelvis (09/26/2018 12:00 AM EDT) Narrative [facility] - 09/28/2018 5:59 PM EDT This exam is auto-finalizing. It's purpose is for storage only. Shon Schneider MD IMG FILM LIBRARY ORD ERABLES [place], [place] * SCAN DOC: CT SCAN (09/26/2018 12:00 AM EDT) Anatomical Region Laterality Modality SO Narrative 09/26/2018 12:00 AM EDT Ordered by an unspecified provider. Scanning Provider MEDIA MGR SCAN EXT O RDR/RSLT documented in this encounter Visit Diagnoses Not on filedocumented in this encounter Care Teams Harmonic Analyst Relationship Specialty Start Date End Date Gloria Red MD [address] [place] [address] [place] [phone] PCP - General Family Medicine 05/26/17 12/03/18 documented as of this encounter
--- OUTSIDE RECORDS SUMMARY | 2024-02-24 01:25 | XMS_ITS | Encounter Summary ---
[place] [address] Care Team Providers Care Heel Lining Paster Name Role Phone Gloria Red MD Primary Care Provider [phone] Reason for Visit * Reason Comments Medication Refill Encounter Details Date Type Department Care Team (Late st Contact Info) Description 08/07/2018 Specialty [place] [address] Ivana Vanegas [facility] Social History Tobacco Use Types Packs/Day Years Used Date Smoking Tobacco: Never Smokeless Tobacco: Never Sex and Gender Information Value Date Recorded Sex Assigned at Not on file Gender Identity Not on file Sexual Orientation Not on file documented as of this encounter Progress Notes * Ivana Mcmahan RPH - 08/07/2018 3:19 PM EST Specialty Pharmacy Consultation; Ivana Mcmahan Gretchen Comprehensive Medication Management (CMM) Monica Jaramillo Diagnosis: 1. Thymic carcinoma Therapy Start Date: 06/15/18 Contact in person or via telephone:phone Ms. Monica Jaramillo is a 63 y.o. (1955) female who was contacted in regard to specialty medication. Spoke with patient regarding Sutent. A review of the medication therapy was performed. The medication was Refilled as scheduled, and all medication related questions and concerns were addressed. The specialty pharmacy staff will follow up with the patient 5-7 days prior to next refill. Is the patient willing to proceed with the Clinical Assessment? Yes Summary and Recommendations: The patient was feeling well today and not experiencing any side effects such as fatigue, edema, flushing, or diarrhea. SBP has been stable on current regimen. She reported that her dose has been lowered due to low platelets and she is aware that her next fill, if at the same dose, will have to come from [place] [facility] mail order. Med list reviewed - no interactions identified. Pt is aware of the importance of lab follow up and infection prevention. Administration, safe handling, contact information, and allergies also discussed. Medication will be mailed out for no charge. Clinic follow-up needed: no Allergies and Drug intolerance: Allergies Allergen Reactions ??? Carboplatin ??? Penicillins Hives ??? Pollen Extracts Other (See Comments) rhinorrhea Special Dietary or Hydration Requirements: no There is no height or weight on file to calculate BMI. Medication Reconciliation Discrepancies (compared to [facility] med list) no Medication Adherence Patient reported X missed doses in the last month: 0 Any gaps in refill history greater than 2 weeks in the last 3 months: no Demonstrates understanding of importance of adherence: yes Informant: patient Reliability of informant: reliable Provider-estimated medication adherence level: 90-100% Reasons for non-adherence: no problems identified Confirmed plan for next specialty medication refill: delivery by pharmacy Refills needed for supportive medications: not needed Medication List: Current Outpatient Medications Medication Sig Dispense Refill ??? sunitinib (SUTENT) chemo tablet Take 37.5 mg by mouth daily. Call clinic before starting medication. Take 1 capsule by mouth daily for 28 days followed by 14 days off. Cycles repeated every 6 weeks The prescription should be filled with whatever strength the pharmacy has available to achieve the prescribed dose, preferably taking the smallest number of capsules/tablets prescribed. 28 Doses of treatment to dispense 5 ??? sunitinib (SUTENT) chemo tablet Take 50 mg by mouth daily for 28 doses. Call clinic before starting medication. Take 50 mg per day for 4 weeks, followed by 2 weeks off. Cycles repeated every 6 weeks The prescription should be filled with whatever strength the pharmacy has available to achieve the prescribed dose, preferably taking the smallest number of capsules/tablets prescribed. (Patient not taking: Reported on 06/23/2018) 28 Doses of treatment to dispense 5 ??? potassium chloride (K-DUR/KLOR-CON) 20 mEq Tab Sust.Rel. Particle/Crystal Take 20 mEq by mouth daily. Indications: hypokalemia prevention ??? albuterol 90 mcg/actuation HFA Aerosol Inhaler Inhale 2 puffs into the lungs every 4 hours as needed for Wheezing. Use with spacer ??? magnesium oxide (MAG-OX) 400 mg Tablet Take 400 mg by mouth 2 times daily. Indications: hypomagnesemia ??? acetaminophen (TYLENOL) 500 mg Tablet Take 1,000 mg by mouth every 6 hours as needed for Pain. ??? ascorbic acid, vitamin C, (VITAMIN C) 500 mg Tablet, Chewable Take 1 tablet by mouth daily. ??? lidocaine-prilocaine (EMLA) Cream Apply topically as needed. Please apply near area of mediportsite prior to access. 30 g 0 ??? prochlorperazine (COMPAZINE) 5 mg Tablet Take 1 tablet by mouth every 6 hours as needed for Nausea. (Patient not taking: Reported on 06/20/2017) 15 tablet 0 ??? meTOPROLOL succinate (TOPROL-XL) [...] Vitals: Ht Readings from Last 1 Encounters: 08/04/18 176.5 cm (5' 9.49) Wt Readings from Last 3 Encounters: 08/04/18 120.8 kg (266 lb 6.4 oz) 07/21/18 122.5 kg (270 lb) 06/23/18 123.3 kg (271 lb 12.8 oz) Temp Readings from Last 3 Encounters: 08/04/18 36.5 ??C (97.7 ??F) (Oral) 07/21/18 36.5 ??C (97.7 ??F) (Oral) 06/23/18 37.3 ??C (99.1 ??F) (Oral) BP Readings from Last 3 Encounters: 08/04/18 127/79 07/21/18 142/71 06/23/18 139/84 Pulse Readings from Last 3 Encounters: 08/04/18 87 07/21/18 84 06/23/18 85 Pertinent Lab values: No results found for: ALT, AST, GGT, ALKPHOS, BILITOT, BILIDIR, ALBUMIN, PROT Lab Results Component Value Date WBC 2.05 08/03/2018 HGB 8.2 08/03/2018 HCT 25.1 08/03/2018 PLATELET 50 08/03/2018 No results found for: HA1C There is no immunization history on file for this patient. Assessment and Recommendations: Title Cognitive Ability: good Cognitive Impairment Status Verified this Year: no Drug Interactions Provided the patient with educational material regarding drug interactions: yes Patient Counseling Counseled the patient on the following: medication safety precautions education provided, drug interaction education provided to patient, cost of medications and cost implications discussed, adherence and missed doses discussed, pharmacy contact information discussed, monitoring medication discussed, self-monitoring discussed Drug Medication Management Summary Topics discussed: medication safety precautions education provided, drug interaction education provided to patient, cost of medications and cost implications discussed, adherence and missed doses discussed, pharmacy contact information discussed, monitoring medication discussed, self-monitoring discussed Number of adverse drug events identified: 0 Time spent: 1-15 min Treatment Outcomes 08/07/2018 Disease progression: Stable Patient Overall Status: Stable [...] frequency and method Handling, storage, and disposal of the medication Relevant lab data Patient verbalizes understanding and is able to read-back instructions on self-administration/injection, proper storage, drug stability, importance of adherence and management strategies, side effectavoidance and mitigation strategies, and interruptions in therapy: Yes Economic Assessment: Patient is agreeable to medication copay: yes Copay Amount: $0 Day Supply: 28 Date Needed: 08/09/18 Copay assistance required: no Physical Assessment: Functional limitations identified: no Is patient a fall risk: no Cognitive limitations identified such as orientation, memory, reasoning or judgement: no Other: no Social Assessment: Does the patient have a primary home care manager rn? no Patient has emergency contact on file: Yes Does patient need referral to home health care social worker: No Does patient need referral to advocacy group: No Physical and Home Health Assessment: Is the patient able to store their medication as directed? Yes Is the patient in a safe home environment? Yes Do you have a support network? Yes Reviewed potential home safety hazards: No Therapy Assessment: Appropriate Therapy: Yes Effective: yes - as determined by clinic Patient experienced change in condition that affects treatment: no Are you experiencing any side effects from your medication? no Patient Goals: Goals ??? DH Home Medication Compliance and Understanding Slow / prevent progression of disease on Sutent therapy without complete hair loss as assessed at each fill. Is the patient on track to achieve goals of therapy? yes Additional care/services needed: no Educational information or adherence tools provided: Yes Additional equipment/supplies required: no Care Plan Reviewed and Approved by both Pharmacist and Patient: Yes Did Care Plan Change? Yes Condition: yes - low labs Informed patient of specialty pharmacy services: Yes -Patient received welcome packet: no Date Received: mail again -Patient is aware a licensed pharmacist is available 24 hours a day, 7 days a week to discuss medication-related questions or concerns: Yes -Patient verbalizes understanding of education on the common side effect profile of the medication:Yes -The patient is able to call 911 or seek urgent care if signs/symptoms of allergy or harmful adverse reactions occur: Yes Patient Satisfaction with Therapy: yes - . Patient understands no changes to current drug regimen were made at the appointment and that [facility] is[facility] recommendations (summary located at top of note) for provider review and follow up. Ivana Mcmahan RPH 08/07/18 3:23 PM documented in this encounter Plan of Treatment Upcoming Encounters Date Type Department Care Team (Late st Contact Info) Description 02/24/2024 9:00 AM EDT Office Visit Hematology/Oncology at [address] [phone] Shon Schneider MD [facility] [place] [address] [place] [address] 02/24/2024 9:30 AM EDT Infusion Hematology Oncology at [address] [phone] 03/02/2024 11:00 AM EDT Office Visit Hematology/Oncology at [address] [phone] Shon Schneider MD [facility] [place] [address] [address] HEMATOLOGY AND ONCOLOGY [place], [place] [address] 03/02/2024 12:30 PM EDT Infusion Hematology Oncology at [address] [phone] 03/09/2024 10:00 AM EDT Office Visit Hematology/Oncology at [address] [phone] Shon Schneidre MD [facility] [place] [address] HEMATOLOGY AND ONCOLOGY [place], [place] [address] 03/09/2024 10:30 AM EDT Infusion Hematology Oncology at [address] [phone] documented as of this encounter Goals Goal [...] thymus documented in this encounter Care Teams Heel Lining Paster Relationship Specialty Start Date End Date Gloria Red MD [address] [place] [address] [place] [phone] PCP - General Family Medicine 05/26/17 12/03/18 documented as of this encounter
--- OUTSIDE RECORDS SUMMARY | 2024-02-24 01:25 | XMS_ITS | Encounter Summary ---
Author Organization [facility] [place] [address] Care Team Providers Care Textile Technical Officer Name Role Phone Gloria Red MD Primary Care Provider [phone] Reason for Visit * Reason Onset Date Comments Labs Only 08/25/2018 Lab Tracking Encounter Details Date Type Department Care Team (Late st Contact Info) Description 08/25/2018 Telephone Hematology/Oncology at [address] [phone] Boaz Amos, RN Labs Only (Lab Tracking) Social History Tobacco Use Types Packs/Day Years Used Date Smoking Tobacco: Never Smokeless Tobacco: Never Sex and Gender Information Value Date Recorded Sex Assigned at Not on file Gender Identity Not on file Sexual Orientation Not on file documented as of this encounter Miscellaneous Notes * Telephone Encounter - Boaz Amos, RN - 08/25/2018 11:47 AM EDT LAB TRACKING Brayan Alonsoll 1955 [id number] DIAGNOSIS: Thymic cancer LABS ORDERED: cbc diff, cmp, magnesium, phos MEDICATIONS: Sutent 37.5 mg daily 2 weeks on, 2 weeks off Assessment/Plan: Pt seen in clinic by Desire Curran APRN today. She will have 1 gm Magnesium today.Labs again in 2 weeks per [place]. Pt is in agreement with plan. She will go to [facility] 09/08/18. She knows call in the interim if she has any questions or concerns, she can always go for lab sooner if warranted. Results for BRAYAN PIERRE ( ) as of 08/25/2018 11:48 Ref. Range 07/28/2018 00:00 08/03/2018 00:00 08/11/2018 00:00 08/18/2018 00:00 08/24/2018 00:00 WBC Unknown 3 2.05 2.3 3.0 4.4 Hemoglobin Unknown 8.8 8.2 7.3 8.1 9.9 Hematocrit Unknown 26.3 25.1 22.5 24.9 28.9 Platelets Unknown 45 50 61 81 133 Neutr Abs (ANC) Unknown 1.57 1.07 1.01 1.82 3.00 Sodium Unknown 137 Potassium Unknown 3.7 BUN Unknown 14 13 Creatinine Unknown 0.60 0.60 Glucose Lvl Unknown 107 Magnesium Latest Units: mg/dL 1 1.1 1.3 Phosphorus Unknown 4.9 4.6 Albumin Unknown 4.0 AST Unknown 28 ALT Unknown 13 documented in this encounter Plan of Treatment Upcoming Encounters Date Type Department Care Team (Late st Contact Info) Description 02/24/2024 9:00 AM EDT Office Visit Hematology/Oncology at [address] [phone] Shon Schneider MD [facility] [place] [address] Ciara Pitts [address] HEMATOLOGY AND ONCOLOGY [place], [place] [address] 02/24/2024 9:30 AM EDT Infusion Hematology Oncology at [address] [phone] 03/02/2024 11:00 AM EDT Office Visit Hematology/Oncology at [address] [phone] Shon Schneider MD [facility] [place] [address] Ciara Pitts, [address] HEMATOLOGY AND ONCOLOGY [place], [place] [phone] 03/02/2024 12:30 PM EDT Infusion Hematology Oncology at [address] [phone] 03/09/2024 10:00 AM EDT Office Visit Hematology/Oncology at [address] [phone] Shon Schneider MD [facility] [place] [address] HEMATOLOGY AND ONCOLOGY [place], [place] [phone] 03/09/2024 10:30 AM EDT Infusion Hematology Oncology at [address] [phone] documented as of this encounter [...] Associated Diagnosis Comments CBC (WITH DIFF) Routine 08/24/2018 PHOSPHORUS Routine 08/24/2018 MAGNESIUM Routine 08/24/2018 COMPREHENSIVE METABOLIC PANEL Routine 08/24/2018 documented in this encounter Results * Phosphorus (08/24/2018) Phosphorus 4.6 Blood specimen (specimen) 08/24/2018 Desire Curran APRN CHEMISTRY ORDERABLES * Magnesium (08/24/2018) Magnesium 1.3 mg/dL Blood specimen (specimen) 08/24/2018 Desire Curran TAXATION AGENT CHEMISTRY ORDERABLES * Comprehensive metabolic panel (non-fasting) (08/24/2018) Blood Urea Nitrogen 13 Creatinine 0.60 Blood specimen (specimen) 08/24/2018 Desire Curran APRN CHEMISTRY ORDERABLES * CBC (with Diff) (08/24/2018) White Blood Cell 4.4 Hemoglobin 9.9 Hematocrit 28.9 Platelet 133 Neutrophil Absolute (ANC) - Automated 3.00 Blood specimen (specimen) 08/24/2018 Desire Curran APRN HEMATOLOGY ORDERABLE S documented in this encounter Visit Diagnoses Not on filedocumented in this encounter Care Teams Textile Technical Officer Relationship Specialty Start Date End Date Gloria Red MD [address] [place] [address] [place] [phone] PCP - General Family Medicine 05/26/17 12/03/18 documented as of this encounter
--- OUTSIDE RECORDS SUMMARY | 2024-02-24 01:25 | XMS_ITS | Encounter Summary ---
Author Organization [facility] [place] [address] Care Team Providers Care Vocational Technical Education Teacher Name Role Phone Gloria Red MD Primary Care Provider [phone] Reason for Visit * Reason Onset Date Comments Other 09/08/2018 Sutitinib script Encounter Details Date Type Department Care Team (Late st Contact Info) Description 09/08/2018 Telephone Hematology/Oncology at [address] [phone] Lashawn Skelton, RN Other (Sutitinib script ) Social History Tobacco Use Types Packs/Day Years Used Date Smoking Tobacco: Never Smokeless Tobacco: Never Sex and Gender Information Value Date Recorded Sex Assigned at Not on file Gender Identity Not on file Sexual Orientation Not on file documented as of this encounter Miscellaneous Notes * Telephone Encounter - Lashawn Skelton, RN - 09/08/2018 11:41 AM EDT Sutitinib refill Script sent to [facility], , fax confirmed. Oral Chemotherapy Rx Refill Note (No Rx Change) 09/08/2018 Monica Jaramillo, 1955 Prescription for oral chemotherapy Sunitinib 37.5mg Daily (2 weeks on, 1 week off) was: ?? written by provider without any changes, ?? printed, reviewed, and signed by provider, and ?? faxed to [facility] to be filled. Notice of this refill has been given to Monica at Office visit today. The patient understands that this medication will be delivered to her home. documented in this encounter Plan of Treatment Upcoming Encounters Date Type Department Care Team (Late st Contact Info) Description 02/24/2024 9:00 AM EDT Office Visit Hematology/Oncology at [address] [phone] Shon Schneider MD [facility] [place] [address] HEMATOLOGY AND ONCOLOGY [place], [place] [address] 02/24/2024 9:30 AM EDT Infusion Hematology Oncology at [address] [phone] 03/02/2024 11:00 AM EDT Office Visit Hematology/Oncology at [address] [phone] Shon Schneider MD [facility] [place] [address] [place] [address] 03/02/2024 12:30 PM EDT Infusion Hematology Oncology at [address] [phone] 03/09/2024 10:00 AM EDT Office Visit Hematology/Oncology at [address] [phone] Shon Schneider MD [facility] [place] [address] Ciara Pitts [address] [place] [address] 03/09/2024 10:30 AM EDT Infusion Hematology Oncology at [address] [phone] documented as of this encounter Goals Goal [...] on filedocumented in this encounter Care Teams Vocational Technical Education Teacher Relationship Specialty Start Date End Date Gloria Red MD [address] [place] [address] [place] [phone] PCP - General Family Medicine 05/26/17 12/03/18 documented as of this encounter
--- OUTSIDE RECORDS SUMMARY | 2024-02-24 01:25 | XMS_ITS | Encounter Summary ---
Author Organization [facility] [place] [address] Care Team Providers Care Clinical Recruiter Name Role Phone Gloria Red MD Primary Care Provider [phone] Reason for Visit * Reason Onset Date Comments Labs Only 09/08/2018 Lab tracking Encounter Details Date Type Department Care Team (Late st Contact Info) Description 09/08/2018 Telephone Hematology/Oncology at [address] [phone] Lashawn Skelton, RN Labs Only (Lab tracking) Social History Tobacco Use Types Packs/Day Years Used Date Smoking Tobacco: Never Smokeless Tobacco: Never Sex and Gender Information Value Date Recorded Sex Assigned at Not on file Gender Identity Not on file Sexual Orientation Not on file documented as of this encounter Miscellaneous Notes * Telephone Encounter - Lashawn Skelton, RN - 09/08/2018 12:23 PM EDT LAB TRACKING Brayan Pierre 1955 [id number] DIAGNOSIS: Thymic cancer LABS ORDERED: cbc diff, cmp, magnesium, phos MEDICATIONS: Sutent 37.5 mg daily 2 weeks on, 1 weeks off Assessment/Plan: Pt seen in clinic by Dr. Schneider. Labs Okay today- taking oral Magnesium and received 1g IV in infusion today. Will recheck labs with next apt. No further lab tracking at this point. Results for BRAYAN PIERRE ( ) as of 09/08/2018 12:22 Ref. Range 08/11/2018 00:00 08/18/2018 00:00 08/24/2018 00:00 09/07/2018 00:00 WBC Unknown 2.3 3.0 4.4 3.7 Hemoglobin Unknown 7.3 8.1 9.9 9.6 Hematocrit Unknown 22.5 24.9 28.9 28.7 Platelets Unknown 61 81 133 85 Neutr Abs (ANC) Unknown 1.01 1.82 3.00 2.33 Sodium Unknown 137 135 Potassium Unknown 3.7 BUN Unknown 14 13 16 Creatinine Unknown 0.60 0.60 0.60 Glucose Lvl Unknown 107 Magnesium Latest Units: mg/dL 1 1.1 1.3 1.4 Phosphorus Unknown 4.9 4.6 3.5 Albumin Unknown 4.0 AST Unknown 28 ALT Unknown 13 documented in this encounter Plan of Treatment Upcoming Encounters Date Type Department Care Team (Late st Contact Info) Description 02/24/2024 9:00 AM EDT Office Visit Hematology/Oncology at [address] [phone] Shon Schneider MD [facility] [place] [address] [address] HEMATOLOGY [place] [address] 02/24/2024 9:30 AM EDT Infusion Hematology Oncology at [address] [phone] 03/02/2024 11:00 AM EDT Office Visit Hematology/Oncology at [address] [phone] Shon Schneider MD [facility] [place] [address] Ci[address] Pitts [address] HEMATOLOGY AND ONCOLOGY [place], [place] [address] 03/02/2024 12:30 PM EDT Infusion Hematology Oncology at [address] [phone] 03/09/2024 10:00 AM EDT Office Visit Hematology/Oncology at [address] [phone] Shon Schneider MD [facility] [place] [address] Ciara Pitts APRN [address] [place] [address] DR HEMATOLOGY [place] [address] 03/09/2024 10:30 AM EDT Infusion Hematology Oncology at [address] [phone] documented as of this encounter [...] Associated Diagnosis Comments CBC (WITH DIFF) Routine 09/07/2018 PHOSPHORUS Routine 09/07/2018 MAGNESIUM Routine 09/07/2018 COMPREHENSIVE METABOLIC PANEL Routine 09/07/2018 documented in this encounter Results * Phosphorus (09/07/2018) Phosphorus 3.5 Blood specimen (specimen) 09/07/2018 Shon Schneider MD CHEMISTRY ORDERABLES * Magnesium (09/07/2018) Magnesium 1.4 mg/dL Blood specimen (specimen) 09/07/2018 Shon Schneider MD CHEMISTRY ORDERABLES * Comprehensive metabolic panel (non-fasting) (09/07/2018) Blood Urea Nitrogen 16 Creatinine 0.60 Sodium 135 Blood specimen (specimen) 09/07/2018 Shon Schneider MD CHEMISTRY ORDERABLES * CBC (with Diff) (09/07/2018) White Blood Cell 3.7 Hemoglobin 9.6 Hematocrit 28.7 Platelet 85 Neutrophil Absolute (ANC) - Automated 2.33 Blood specimen (specimen) 09/07/2018 Shon Schneider MD HEMATOLOGY ORDERABLE S documented in this encounter Visit Diagnoses Not on filedocumented in this encounter Care Teams Clinical Recruiter Relationship Specialty Start Date End Date Gloria Red MD [address] [place] [address] [place] [phone] PCP - General Family Medicine 05/26/17 12/03/18 documented as of this encounter
--- OUTSIDE RECORDS SUMMARY | 2024-02-24 01:25 | XMS_ITS | Encounter Summary ---
Author Organization [facility] [place] [address] Care Team Providers Care Busperson Name Role Phone Gloria Red MD Primary Care Provider [phone] Reason for Visit * Reason Onset Date Comments Labs Only 07/26/2018 lab tracking Encounter Details Date Type Department Care Team (Late st Contact Info) Description 07/26/2018 Telephone Hematology/Oncology at [address] [phone] Eden Vieira, RN Labs Only (lab tracking) Social History Tobacco Use Types Packs/Day Years Used Date Smoking Tobacco: Never Smokeless Tobacco: Never Sex and Gender Information Value Date Recorded Sex Assigned at Not on file Gender Identity Not on file Sexual Orientation Not on file documented as of this encounter Miscellaneous Notes * Telephone Encounter - Eden Vieira RN - 07/26/2018 10:32 AM EST Brayan Jaramillo [id number] DX: thymic cancer Medications: sutent 50 mg a day 4 weeks on 2 weeks off. Stopped on 07/20/18 due to low platelets Labs: Pt will have CBC Tuesday this week Transfuse one unit of platelets for plt count less than 20K at [facility] infusion room. Assessment/Plan Dr. Schneider updated on labs via this note. Results for IGNACIO, BRAYAN ( ) as of 07/26/2018 10:32 Ref. Range 07/24/2018 00:00 07/26/2018 00:00 WBC Unknown 2.86 2.7 Hemoglobin Unknown 9.4 8.9 Hematocrit Unknown 27.8 26.4 Platelets Unknown 31 40 Neutr Abs (ANC) Unknown 1.34 documented in this encounter Plan of Treatment Upcoming Encounters Date Type Department Care Team (Late st Contact Info) Description 02/24/2024 9:00 AM EDT Office Visit Hematology/Oncology at [address] [phone] Shon Schneider MD [facility] [place] [address] [address] HEMATOLOGY [place] [address] 02/24/2024 9:30 AM EDT Infusion Hematology Oncology at [address] [phone] 03/02/2024 11:00 AM EDT Office Visit Hematology/Oncology at [address] [phone] Shon Schneider MD [facility] [place] [place] [address] [address] HEMATOLOGY AND ONCOLOGY [place], [place] [address] 03/02/2024 12:30 PM EDT Infusion Hematology Oncology at [address] [phone] 03/09/2024 10:00 AM EDT Office Visit Hematology/Oncology at [address] [phone] Shon Schneider MD [facility] [place] [address] Ciara Pitts APRN [address] [place] [address] DR HEMATOLOGY [place] [address] 03/09/2024 10:30 AM EDT Infusion Hematology Oncology at [address] [phone] documented as of this encounter Goals Goal [...] Associated Diagnosis Comments CBC (WITH DIFF) Routine 07/26/2018 documented in this encounter Results * CBC (with Diff) (07/26/2018) White Blood Cell 2.7 Hemoglobin 8.9 Hematocrit 26.4 Platelet 40 Neutrophil Absolute (ANC) - Automated 1.34 Blood specimen (specimen) 07/26/2018 Shon Schneider MD HEMATOLOGY ORDERABLE S documented in this encounter Visit Diagnoses Not on filedocumented in this encounter Care Teams Busperson Relationship Specialty Start Date End Date Gloria Red MD [address] [place] [address] [place] [address] PCP - General Family Medicine 05/26/17 12/03/18 documented as of this encounter
--- OUTSIDE RECORDS SUMMARY | 2024-02-24 01:25 | XMS_ITS | Encounter Summary ---
Author Organization [facility] [place] [address] Care Team Providers Care Stonecutter Assistant Name Role Phone Gloria Red MD Primary Care Provider [phone] Reason for Visit * Reason Onset Date Comments Labs Only 08/11/2018 Encounter Details Date Type Department Care Team (Late st Contact Info) Description 08/11/2018 Telephone Hematology/Oncology at [address] [phone] Brionna Andrade RN Labs Only Social History Tobacco Use Types Packs/Day Years Used Date Smoking Tobacco: Never Smokeless Tobacco: Never Sex and Gender Information Value Date Recorded Sex Assigned at Not on file Gender Identity Not on file Sexual Orientation Not on file documented as of this encounter Miscellaneous Notes * Telephone Encounter - Brionna Andrade RN - 08/11/2018 1:19 PM EST LAB TRACKING DIAGNOSIS: Thymic cancer LABS ORDERED: cbc diff, cmp,magnesium MEDICATIONS: sutent 37.5 mg daily 4 weeks on 2 weeks off Assessment/Plan: dr. Schneider reviewed labs and would like pt to get one unit of blood, Tuesday is fine ( pt not symptomatic) 2 grams of IV magnesium sulfate today and 2 grams on Tuesday08/14/18. Repeat cbc, cmp, magnesium Tuesday08/18/18. Pt agrees with plan. Spoke with Eden CORTES at [facility] inf and she will set pt up. Orders faxed over. Results for IGNACIOCARMEN LOVETTY ( ) as of 08/11/2018 13:42 Ref. Range 07/26/2018 00:00 07/28/2018 00:00 08/03/2018 00:00 08/11/2018 00:00 WBC Unknown 2.7 3 2.05 2.3 Hemoglobin Unknown 8.9 8.8 8.2 7.3 Hematocrit Unknown 26.4 26.3 25.1 22.5 Platelets Unknown 40 45 50 61 Neutr Abs (ANC) Unknown 1.34 1.57 1.07 1.01 Magnesium Latest Units: mg/dL 1 documented in this encounter Plan of Treatment Upcoming Encounters Date Type Department Care Team (Late st Contact Info) Description 02/24/2024 9:00 AM EDT Office Visit Hematology/Oncology at [address] [phone] Shon Schneider MD [facility] [place] [address] [place] [address] 02/24/2024 9:30 AM EDT Infusion Hematology Oncology at [address] [phone] 03/02/2024 11:00 AM EDT Office Visit Hematology/Oncology at [address] [phone] Shon Schneider MD [facility] [place] [address] [address] [place] [address] 03/02/2024 12:30 PM EDT Infusion Hematology Oncology at [address] [phone] 03/09/2024 10:00 AM EDT Office Visit Hematology/Oncology at [address] [phone] Shon Schneider MD [facility] [place] [address] Ciara Pitts APRN [address] [place] [address] DR [place] [address] 03/09/2024 10:30 AM EDT Infusion Hematology Oncology at [address] [phone] documented as of this [...] Associated Diagnosis Comments CBC (WITH DIFF) Routine 08/11/2018 documented in this encounter Results * CBC (with Diff) (08/11/2018) White Blood Cell 2.3 Hemoglobin 7.3 Hematocrit 22.5 Platelet 61 Neutrophil Absolute (ANC) - Automated 1.01 Magnesium 1 mg/dL Blood specimen (specimen) 08/11/2018 Historical Provider HEMATOLOGY ORDERA BLES documented in this encounter Visit Diagnoses Not on filedocumented in this encounter Care Teams Stonecutter Assistant Relationship Specialty Start Date End Date Gloria Red MD [address] [place] [address] [place] [phone] PCP - General Family Medicine 05/26/17 12/03/18 documented as of this encounter
--- OUTSIDE RECORDS SUMMARY | 2024-02-24 01:25 | XMS_ITS | Encounter Summary ---
Author Organization [facility] [place] [address] Care Team Providers Care Concrete Block Plant Supervisor Name Role Phone Gloria Red MD Primary Care Provider [phone] Reason for Visit * Reason Onset Date Comments Other 08/04/2018 Sunitinib dose r eduction- script sent to Encounter Details Date Type Department Care Team (Late st Contact Info) Description 08/04/2018 Telephone Hematology/Oncology at [address] [phone] Lashawn Skelton, RN Other (Sunitinib dose reduction- script sent to ) Social History Tobacco Use Types Packs/Day Years Used Date Smoking Tobacco: Never Smokeless Tobacco: Never Sex and Gender Information Value Date Recorded Sex Assigned at Not on file Gender Identity Not on file Sexual Orientation Not on file documented as of this encounter Miscellaneous Notes * Telephone Encounter - Lashawn Skelton RN - 08/04/2018 4:33 PM EST Faxed new reduced script [facility], at [phone], fax confirmed. Oral Chemotherapy Check Note 08/04/2018 Monica Jaramillo, 1955 Prescriptions for oral chemotherapy were reviewed as follows: Oral Chemotherapy Order Sunitinib: Order details: ?? Dose: 37.5mg ?? Route: oral ?? Quantity to be dispensed #: 28 ?? Number of refills: 5 ?? Instructions: Take 37.5mg by mouth daily for 28 days; followed by 14 days off- per script. Discussion with MD said to take 37.5mg daily for 14 days and then will see provider but will likely to switch to 2 weeks on one week off. ?? Cycle number and length: 2 ?? Start date: tentative 08/11/18 Plan of care compared to information in the medical record, including note from provider on 08/04/18(date). The prescription was found accurate. documented in this encounter Plan of Treatment Upcoming Encounters Date Type Department Care Team (Late st Contact Info) Description 02/24/2024 9:00 AM EDT Office Visit Hematology/Oncology at [address] [phone] Shon Schneidre MD [facility] [place] [address] Ci[address] Pitts [address] [place] [address] 02/24/2024 9:30 AM EDT Infusion Hematology Oncology at [address] [phone] 03/02/2024 11:00 AM EDT Office Visit Hematology/Oncology at [address] [phone] Shon Schneider MD [facility] [place] [address] Ciara Pitts [address] [place] [address] 03/02/2024 12:30 PM EDT Infusion Hematology Oncology at [address] [phone] 03/09/2024 10:00 AM EDT Office Visit Hematology/Oncology at [address] [phone] Shon Schneider MD [facility] [place] [address] Ciara Pitts APRN [address] [place] [address] DR HEMATOLOGY AND ONCOLOGY [place], [place] [phone] 03/09/2024 10:30 AM EDT Infusion Hematology Oncology at [address] [phone] documented as of this encounter [...] on filedocumented in this encounter Care Teams Concrete Block Plant Supervisor Relationship Specialty Start Date End Date Gloria Red MD [address] [place] [address] [place] [phone] PCP - General Family Medicine 05/26/17 12/03/18 documented as of this encounter
--- OUTSIDE RECORDS SUMMARY | 2024-02-24 01:25 | XMS_ITS | Encounter Summary ---
Author Organization [facility] Address [facility] [place] [address] Care Team Providers Care Bedspring Assembler Name Role Phone Gloria Red MD Primary Care Provider [phone] Encounter Details Date Type Department Care Team (Late st Contact Info) Description 08/04/2018 11:00 AM EST Office Visit Hematology/Oncology at [address] [phone] Shon Schneider MD [facility] [place] [address] Thymic carcinoma; Hypomagnesemia Social History Tobacco Use Types Packs/Day Years Used Date Smoking Tobacco: Never Smokeless Tobacco: Never Sex and Gender Information Value Date Recorded Sex Assigned at Not on file Gender Identity Not on file Sexual Orientation Not on file documented as of this encounter Last Filed Vital Signs Vital Sign Reading Time Taken Comments Blood Pressure 127/79 08/04/2018 11:14 AM EST Pulse 87 08/04/2018 11:14 AM EST Temperature 36.5 ??C (97.7 ??F) 08/04/2018 1 1:14 AM EST Respiratory Rate 16 08/04/2018 11:1 4 AM EST Oxygen Saturation 100% 08/04/2018 11: 14 AM EST Inhaled Oxygen Concentration - - Weight 120.8 kg (266 lb 6.4 oz) 019 11:14 AM EST Height 176.5 cm (5' 9.49) 08/04/2018 1 1:14 AM EST Body Mass Index 38.79 08/04/2018 11:14 AM EST documented in this encounter Progress Notes * Shon Schneider MD - 08/04/2018 11:00 AM EST Subjective: Patient ID: Monica [...] pleural effusion with compression atelectasis. transferred to [facility] for further evaluation and workup [...] mediastinal mass 03/29 Path ([facility] review) - Mediastinum, mass, biopsy: 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 [facility] - CONSULT SLIDES FROM [facility]; [place], [place]: A. MEDIASTINUM, MASS, BIOPSY ([id number]; 03/22/2017): ? 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 ?Immunohistochemistry performed at the outside institution and reviewed at [facility] demonstrates the following staining profile in lesional cells: ? Positive - AE1/AE3, p40, PAX8, CD117, CD5(multifocal), CK7(scattered cells), synaptophysin, chromogranin ? Negative - CK20, TTF-1, GATA3, CD34 ? The immunohistochemical profile supports the above diagnosis. ? Ki67 (MIB-1) proliferation index performed at the referring institution and reviewed at [facility] is focally up to ~30%. NOTE: While diffuse synaptophysin and chromogranin expression is unusual for conventional thymic carcinoma, the overall histomorphology and immunophenotype is most in keeping with THYMIC SQUAMOUS CARCINOMA.?The extent of PAX8 and CD117 staining would be unusual for Nut carcinoma. B. MEDIASTINUM, ANTERIOR, 4.5 CM, ULTRASOUND GUIDED FINED NEEDLE ASPIRATION ([id number]; 03/22/17): The cytologic preparations were not reviewed [...] Second opinion with Dr. Roddy Vega in [place]. They reviewed the pathology and concurred they [...] accompanied by her . She is feeling generally well and tolerated this sunitinib well. She had no nausea or vomiting. She felt better while on this than she did onthe prior chemotherapy. Her appetite is good. Her weight is a little lower. Her energy level is good. She has no SOB. No focal weakness. No chest pain or pain elsewhere. No symptoms of neuropathy. She has been on a website with other patients with thymic carcinoma. Patients on that site have spokenof good results with therapy, including with immunotherapy and with sunitinib, including people doing well for many years and this has given her more optimism about the future for her. Soc Hx: , lives in [place], [place] Tob - Never Etoh - rare [...] is normal. Vitals reviewed. Labs: WBC/ANC - 2.06/1069, Hgb/Hct - 8.2/25.1, Plts - 50,000. BUN/Cr - 10/0.6. Mg - 1.4. Lytes and LFTs o/w [...] trying. I spoke with Dr. Vega at [facility]. There were no clinical trials available there. His thought was to try sunitinib. She began sunitinib on 06/24/18 (50 pg PO per day for 4 weeks followed by 2 weeks off with cycles repeated every 6 weeks). She stopped this three days early due to myelosuppression, including grade 3 thrombocytopenia and grade 2 neutropenia. She is due to start again on 08/07. However, we are going to have her hold off on that given the continued low counts. We will check labs again in one week. When she is ready to restart, we will have her do this at 37.5 mg and discussed having her take that for 2 weeks on and 1 off. The delay in restarting therapy is disappointing for her. We will be in touch with her next week after we have the labs back and I will schedule her to come back in three weeks. [facility] testing. Per the report, there were 3 genomic findings but no therapies associated with potential clinical benefit. documented in this encounter Plan of Treatment Upcoming Encounters Date Type Department Care Team (Late st Contact Info) Description 02/24/2024 9:00 AM EDT Office Visit Hematology/Oncology at [address] [phone] Shon Schneider MD [facility] [place] [address] HEMATOLOGY AND ONCOLOGY [place], [place] [address] 02/24/2024 9:30 AM EDT Infusion Hematology Oncology at [address] [phone] 03/02/2024 11:00 AM EDT Office Visit Hematology/Oncology at [address] [phone] Shon Schneider MD [facility] [place] [address] [address] HEMATOLOGY AND ONCOLOGY [place], [place] [address] 03/02/2024 12:30 PM EDT Infusion Hematology Oncology at [address] [phone] 03/09/2024 10:00 AM EDT Office Visit Hematology/Oncology at [address] [phone] Shon Schneider MD [facility] [place] [address] [address] [place] [address] 03/09/2024 10:30 AM EDT Infusion Hematology Oncology at [address] [phone] documented as of this encounter Goals Goal [...] Priority Date/Time Associated Diagnosis Comments LAB SCAN 08/11/2018 12:00 AM EST LAB SCAN 08/03/2018 12:00 AM EST LAB SCAN 08/03/2018 12:00 AM EST CHEMOTHERAPY SCAN 06/26/2018 12: 00 AM EST documented in this encounter Results * SCAN DOC: LAB (08/11/2018 12:00 AM EST) Narrative 08/11/2018 12:00 AM EST Ordered by an unspecified provider. Scanning Provider MEDIA MGR SCAN EXT O RDR/RSLT * SCAN DOC: LAB (08/03/2018 12:00 AM EST) Narrative 08/03/2018 12:00 AM EST Ordered by an unspecified provider. Scanning Provider MEDIA MGR SCAN EXT O RDR/RSLT * SCAN DOC: LAB (08/03/2018 12:00 AM EST) Narrative 08/03/2018 12:00 AM EST Ordered by an unspecified provider. Scanning Provider MEDIA MGR SCAN EXT O RDR/RSLT * SCAN DOC: CHEMOTHERAPY (06/26/2018 12:00 AM EST) Narrative 06/26/2018 12:00 AM EST Ordered by an unspecified provider. Scanning Provider MEDIA MGR SCAN EXT O RDR/RSLT documented in this encounter Visit Diagnoses Diagnosis Thymic carcinoma Malignant neoplasm of thymus Hypomagnesemia Disorders of magnesium metabolism Thymic carcinoma Malignant neoplasm of thymus documented in this encounter Care Teams Bedspring Assembler Relationship Specialty Start Date End Date Glorai Red MD [address] [place] [address] [place] [phone] PCP - General Family Medicine 05/26/17 12/03/18 documented as of this encounter
--- OUTSIDE RECORDS SUMMARY | 2024-02-24 01:25 | XMS_ITS | Encounter Summary ---
Author Organization [facility] Address [facility] [place] [address] Care Team Providers Care Wine Pasteurizer Name Role Phone Gloria Red MD Primary Care Provider Encounter Details Date Type Department Care Team (Late st Contact Info) Description 09/29/2018 9:00 AM EDT Office Visit Hematology/Oncology at [address] [phone] Shon Schneider MD [facility] [place] [address] Thymic carcinoma; Hypomagnesemia; Macrocytic anemia; Vitamin D deficiency Social History Tobacco Use Types Packs/Day Years Used Date Smoking Tobacco: Never Smokeless Tobacco: Never Sex and Gender Information Value Date Recorded Sex Assigned at Not on file Gender Identity Not on file Sexual Orientation Not on file documented as of this encounter Last Filed Vital Signs Vital Sign Reading Time Taken Comments Blood Pressure 131/78 09/29/2018 9:04 AM EDT Pulse 76 09/29/2018 9:04 AM EDT Temperature 37.1 ??C (98.8 ??F) 09/29/2018 9:04 AM ED T Respiratory Rate 18 09/29/2018 9:04 AM EDT Oxygen Saturation 100% 09/29/2018 9:04 AM EDT Inhaled Oxygen Concentration - - Weight 123.9 kg (273 lb 3.2 oz) 09/29/2018 9:04 AM EDT Height 176.5 cm (5' 9.49) 09/29/2018 9:04 AM ED T Body Mass Index 39.78 09/29/2018 9:04 AM EDT documented in this encounter Progress Notes * Shon Schneider MD - 09/29/2018 9:00 AM EDT Subjective: Patient ID: Monica [...] CONSULT SLIDES FROM [facility]; [place], [place]: A. MEDIASTINUM, MASS, BIOPSY ([id number]; 03/22/2017): ? 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 ?Immunohistochemistry performed at the outside institution and reviewed at [facility] demonstrates the following staining profile in lesional cells: ? Positive - AE1/AE3, p40, PAX8, CD117, CD5(multifocal), CK7(scattered cells), synaptophysin, chromogranin ? Negative - CK20, TTF-1, GATA3, CD34 ? The immunohistochemical profile supports the above diagnosis. ? Ki67 (MIB-1) proliferation index performed at the referring institution and reviewed at [facility] is focally up to ~30%. NOTE: While diffuse synaptophysin and chromogranin expression is unusual for conventional thymic carcinoma, the overall histomorphology and immunophenotype is most in keeping with THYMIC SQUAMOUS CARCINOMA.?The extent of PAX8 and CD117 staining would be unusual for Nut carcinoma. B. MEDIASTINUM, ANTERIOR, 4.5 CM, ULTRASOUND GUIDED FINED NEEDLE ASPIRATION ([id number]; 03/22/17): The cytologic preparations were not reviewed [...] Second opinion with Dr. Roddy Vega in [place]. They reviewed the pathology and concurred they [...] by her . She is feeling very well. She tolerated the sunitinib well. She is due to start the next cycle tomorrow. Her energy level and strength are good. Her sleeping is better. No nausea or vomiting. Her appetite is good and her weight is stable. Nochest pain or SOB. No cough. Her bowels are regular. Soc Hx: , lives in [place], [place] Tob - Never Etoh - rare [...] is normal. Vitals reviewed. Labs: WBC/ANC - 3.10/2079, Hgb/Hct - 9.5/27.8, Plts - 69,000. BUN/Cr - 12/0.6. Mg - 1.3, PO4 - 3.7. Lytes and LFTs o/w [...] mg/day, 2 weeks followed by one w [place] off, with cycles repeated every three weeks. She has tolerated that well. T She had a restaging CT scan done on 09/26/18 which is stable compared with 04/2019. We reviewed thistoday. The tumor may be a little less bulky on the current scan. Therefore, will plan to continue the sutent. However, because of the low platelet count, will have her hold for a week [facility] We will call her with that result and, if better, have her go ahead with the next cycle. She will receive magnesium IV today and we will recheck that next week as well. In addition, will check the B12 and folate due to the macrocytic anemia and a vit D level. I will plan to see her in 4 weeks. Foundation One testing. Per the report, [...] Office Visit Hematology/Oncology at [address] [phone] Shon Schneider MD [facility] [place] [address] Ciara Pitts APRN [address] [place] [address] DR HEMATOLOGY [place] [address] 02/24/2024 9:30 AM EDT Infusion Hematology Oncology at [address] [phone] 03/02/2024 11:00 AM EDT Office Visit Hematology/Oncology at [address] [phone] Shon Schneider MD [facility] ONCOL[facility] [address] HEMATOLOGY AND ONCOLOGY [place], [place] [address] 03/02/2024 12:30 PM EDT Infusion Hematology Oncology at [address] [phone] 03/09/2024 10:00 AM EDT Office Visit Hematology/Oncology at [address] [phone] Shon Schneider MD [facility] [address] [place] [address] [address] HEMATOLOGY AND ONCOLOGY [place], [place] [phone] 03/09/2024 10:30 AM EDT Infusion Hematology Oncology at [address] [phone] documented as of this encounter Goals Goal [...] Priority Date/Time Associated Diagnosis Comments LAB SCAN 10/26/2018 12:00 AM EDT LAB SCAN 10/26/2018 12:00 AM EDT LAB SCAN 10/19/2018 12:00 AM EDT LAB SCAN 10/12/2018 12:00 AM EDT LAB SCAN 10/05/2018 12:00 AM EDT LAB SCAN 10/05/2018 12:00 AM EDT documented in this encounter Results * SCAN DOC: LAB (10/26/2018 12:00 AM EDT) Narrative 10/26/2018 12:00 AM EDT Ordered by an unspecified provider. Scanning Provider MEDIA MGR SCAN EXT O RDR/RSLT * SCAN DOC: LAB (10/26/2018 12:00 AM EDT) Narrative 10/26/2018 12:00 AM EDT Ordered by an unspecified provider. Scanning Provider MEDIA MGR SCAN EXT O RDR/RSLT * SCAN DOC: LAB (10/19/2018 12:00 AM EDT) Narrative 10/19/2018 12:00 AM EDT Ordered by an unspecified provider. Scanning Provider MEDIA MGR SCAN EXT O RDR/RSLT * SCAN DOC: LAB (10/12/2018 12:00 AM EDT) Narrative 10/12/2018 12:00 AM EDT Ordered by an unspecified provider. Scanning Provider MEDIA MGR SCAN EXT O RDR/RSLT * SCAN DOC: LAB (10/05/2018 12:00 AM EDT) Narrative 10/05/2018 12:00 AM EDT Ordered by an unspecified provider. Scanning Provider MEDIA MGR SCAN EXT O RDR/RSLT * SCAN DOC: LAB (10/05/2018 12:00 AM EDT) Narrative 10/05/2018 12:00 AM EDT Ordered by an unspecified provider. Scanning Provider MEDIA MGR SCAN EXT O RDR/RSLT documented in this encounter Visit Diagnoses Diagnosis Thymic carcinoma Malignant neoplasm of thymus Hypomagnesemia Disorders of magnesium metabolism Macrocytic anemia Unspecified deficiency anemia Vitamin D deficiency Unspecified vitamin D deficiency Thymic carcinoma Malignant neoplasm of thymus documented in this encounter Care Teams Wine Pasteurizer Relationship Specialty Start Date End Date Gloria Red MD [address] [place] [address] [place] [phone] PCP - General Family Medicine 05/26/17 12/03/18 documented as of this encounter
--- OUTSIDE RECORDS SUMMARY | 2024-02-24 01:25 | XMS_ITS | Encounter Summary ---
[place] [address] Care Team Providers Care Prenatal Teacher Name Role Phone Gloria Red MD Primary Care Provider [phone] Reason for Visit * Reason Comments Medication Management Patient Education Encounter Details Date Type Department Care Team (Late st Contact Info) Description 06/12/2018 Specialty [place] [phone] Ivana Vanegas [facility] Social History Tobacco Use Types Packs/Day Years Used Date Smoking Tobacco: Never Smokeless Tobacco: Never Sex and Gender Information Value Date Recorded Sex Assigned at Not on file Gender Identity Not on file Sexual Orientation Not on file documented as of this encounter Progress Notes * Ivana Mcmahan RPH - 06/12/2018 2:06 PM EST Specialty Pharmacy Consultation; Ivana Mcmahan RPH Comprehensive Medication Management (CMM) Monica Jaramillo Diagnosis: Thymic cancer Therapy Start Date: 06/19/18 Contact in person or via telephone:phone Ms. Monica Jaramillo is a 62 y.o. (1955) female who was contacted in regard to specialty medication. Spoke with patient regarding Sutent . A review of the medication therapy was performed. The medication was Filled as scheduled, and all medication related questions and concerns were addressed. The specialty pharmacy staff will follow up with the patient 5-7 days prior to next refill. Is the patient willing to proceed with the Clinical Assessment? Yes Summary and Recommendations: Potential side effects of Sutent such as fatigue, edema, flushing, alopecia and diarrhea reviewed. The patient still has some antiemetics on hand. She was concerned about continued hair loss after her initial chemotherapy and I told her that 5-14% of patient's had some hair loss. She stated her last BP was 120/70. She was encouraged to check her pressure after starting this medication. She is aware of the dosing schedule and that she should not start until instructed by clinic and her EKG is complete. Her Med list was reviewed. Diltiazem may increase the effects of her Eliquis which she takesfor a history of a-fib but she has been on both of these for awhile with no bleeding issues. She was advised to monitor closely and call the clinic If any problems arise. No other major interactions identified. Pt is aware of the importance of lab follow up and infection prevention. Administration,safe handling, contact information, and allergies also discussed. Medication will be mailed out forno copay. Clinic follow-up needed: no Allergies and Drug intolerance: Allergies Allergen Reactions ??? Carboplatin ??? Penicillins Hives ??? Pollen Extracts Other (See Comments) rhinorrhea Special Dietary or Hydration Requirements: no There is no height or weight on file to calculate BMI. Medication Reconciliation Discrepancies (compared to [facility] med list) none Medication Adherence Patient reported X missed doses [...] Refill ??? sunitinib (SUTENT) chemo tablet Take 50 [...] near area of mediportsite prior to access. (Patient not taking: Reported on 04/14/2018) 30 g 0 ??? prochlorperazine (COMPAZINE) 5 [...] Vitals: Ht Readings from Last 1 Encounters: 05/22/18 176.5 cm (5' 9.49) Wt Readings from Last 3 Encounters: 05/22/18 123.6 kg (272 lb 6.4 oz) 05/12/18 125.1 kg (275 lb 12.8 oz) 04/25/18 123.7 kg (272 lb 12.8 oz) Temp Readings from Last 3 Encounters: 05/22/18 36.7 ??C (98.1 ??F) 05/12/18 36.8 ??C (98.2 ??F) (Oral) 04/25/18 36.7 ??C (98.1 ??F) (Oral) BP Readings from Last 3 Encounters: 05/22/18 125/74 05/12/18 132/69 04/25/18 133/88 Pulse Readings from Last 3 Encounters: 05/22/18 88 05/12/18 77 04/25/18 83 Pertinent Lab values: No results found for: ALT, AST, GGT, ALKPHOS, BILITOT, BILIDIR, ALBUMIN, PROT No results found for: WBC, HGB, HCT, MCV, PLATELET No results found for: HA1C There is [...] provided, drug interaction education provided to patient, adherence and missed doses discussed, pharmacy contact information discussed, monitoring medication discussed, self-monitoring discussed Drug Medication Management Summary Topics discussed: medication safety precautions education provided, drug interaction education provided to patient, adherence and missed doses discussed, pharmacy contact information discussed, monitoring medication discussed, self-monitoring discussed Number of adverse drug events identified: 0 Time spent: 16-30 min Treatment Outcomes 06/12/2018 Disease progression: Stable Patient Overall Status: Stable [...] strategies, and interruptions in therapy: Yes Physical Assessment: Functional limitations identified: no Cognitive limitations identified: no Concern regarding orientation/memory: no Concern with reasoning/judgement: no Is patient a fall risk: no Other needed information: no Social Assessment: Does the patient have a primary emergency care tech? no Patient has emergency contact on file: Yes Does patient need referral to neonatal social worker: No Does patient need referral to advocacy group: No Physical and Home Health Assessment: Is the patient able to store their medication as directed? Yes Is the patient in a safe home environment? Yes Do you have a support network? Yes Reviewed potential home safety hazards: No Economic Assessment: Patient is agreeable to medication copay: Yes Copay Amount: $0 Day Supply: 28 Date Needed: 06/19/18 Copay assistance required: no Therapy Assessment: Appropriate Therapy: Yes Expected Outcome: determined by clinic Patient's goals: Goals ??? DH Home Medication Compliance and Understanding Slow / prevent progression of disease on Sutent therapy without complete hair loss as assessed at each fill. Care Plan Reviewed and Approved by both Pharmacist and Patient: Yes Patient's Problems/Needs: see problem list Monitoring requirements for prescribed medication: labs on order Interventions (if applicable): No Educational information or adherence tools provided: Yes Additional equipment/supplies required: no Pharmacist follow-up needed: Yes Informed patient of specialty pharmacy services: Yes -Patient will be provided with welcome packet: Yes Date to be provided: Mailed today -Patient is aware a licensed pharmacist is available 24 hours a day, 7 days a week to discuss medication-related questions or concerns: Yes -Patient verbalizes understanding of the common side effect profile of their medication. The patient is able to call 911 or seek urgent care if signs/symptoms of allergy or harmful adverse reactions occur: Yes Patient understands no changes to current drug regimen were made at the appointment and that [facility] (summary located at top of note) for provider review and follow up. Ivana Mcmahan RPH 06/12/18 2:12 PM documented in this encounter Plan of Treatment Upcoming Encounters Date Type Department Care Team (Late st Contact Info) Description 02/24/2024 9:00 AM EDT Office Visit Hematology/Oncology at [address] [phone] Shon Schneider MD [facility] [place] [address] [address] HEMATOLOGY AND ONCOLOGY [place], [place] [id number] 02/24/2024 9:30 AM EDT Infusion Hematology Oncology at [address] [phone] 03/02/2024 11:00 AM EDT Office Visit Hematology/Oncology at [address] [phone] Shon Schneider MD [facility] [place] [address] HEMATOLOGY AND ONCOLOGY [place], [place] [phone] 03/02/2024 12:30 PM EDT Infusion Hematology Oncology at [address] [phone] 03/09/2024 10:00 AM EDT Office Visit Hematology/Oncology at [address] [phone] Shon Schneider MD [facility] [place] [address] HEMATOLOGY AND ONCOLOGY [place], [place] [address] 03/09/2024 10:30 AM EDT Infusion Hematology Oncology at [address] [phone] documented as of this encounter Goals Goal [...] on filedocumented in this encounter Care Teams Prenatal Teacher Relationship Specialty Start Date End Date Gloria Red MD [address] [place] [address] [place] [phone] PCP - General Family Medicine 05/26/17 12/03/18 documented as of this encounter
--- OUTSIDE RECORDS SUMMARY | 2024-02-24 01:25 | XMS_ITS | Encounter Summary ---
Author Organization [facility] [place] [address] Care Team Providers Care Special Education Superintendent Name Role Phone Gloria Red MD Primary Care Provider [phone] Reason for Visit * Reason Onset Date Comments Prior Authorization 08/10/2018 Prior Author ization for Sutent Encounter Details Date Type Department Care Team (Late st Contact Info) Description 08/10/2018 Telephone Hematology/Oncology at [address] [phone] Ute Chacon monitoring coordinator (Prior Authorization for Sutent) Social History Tobacco Use Types Packs/Day Years Used Date Smoking Tobacco: Never Smokeless Tobacco: Never Sex and Gender Information Value Date Recorded Sex Assigned at Not on file Gender Identity Not on file Sexual Orientation Not on file documented as of this encounter Miscellaneous Notes * Telephone Encounter - Ute Chacon RN - 08/10/2018 1:41 PM EST Prior authorization form received by [employer]. Phone # .Case # [id number]. Spoke with used equipment sales representative and gave new information concerning the Sutent prescription. New prescription 37.5 mg Po Daily x 28 days with 14 days off. Cycle to be repeated every 6 weeks. Quantity 28 with 5 refills. [facility] pharmacy used equipment sales representative confirmed PA and had no further questions at this time. Patient has appointment to see Desiree Curran APRN on 08/25/18. documented in this encounter Plan of Treatment Upcoming Encounters Date Type Department Care Team (Late st Contact Info) Description 02/24/2024 9:00 AM EDT Office Visit Hematology/Oncology at [address] [phone] Shon Schneider MD [facility] [address] HEMATOLOGY AND ONCOLOGY [place], [place] [address] 02/24/2024 9:30 AM EDT Infusion Hematology Oncology at [address] [phone] 03/02/2024 11:00 AM EDT Office Visit Hematology/Oncology at [address] [phone] Shon Schneider MD [facility] [place] [address] Ciara Pitts [address] HEMATOLOGY AND ONCOLOGY [place], [place] [address] 03/02/2024 12:30 PM EDT Infusion Hematology Oncology at [address] [phone] 03/09/2024 10:00 AM EDT Office Visit Hematology/Oncology at [address] [phone] Shon Schneider MD [facility] [place] [address] Ciara Pitts [address] HEMATOLOGY AND ONCOLOGY [place], [place] [address] 03/09/2024 10:30 AM EDT Infusion Hematology Oncology at [address] [phone] documented as of this encounter [...] on filedocumented in this encounter Care Teams Special Education Superintendent Relationship Specialty Start Date End Date Gloria Red MD [address] [place] [address] [place] [phone] PCP - General Family Medicine 05/26/17 12/03/18 documented as of this encounter
--- OUTSIDE RECORDS SUMMARY | 2024-02-24 01:25 | XMS_ITS | Encounter Summary ---
Author Organization [facility] [place] [address] Care Team Providers Care Grants Manager Name Role Phone Gloria Red MD Primary Care Provider [phone] Reason for Visit * Reason Onset Date Comments Labs Only 10/13/2018 Lab tracking CBC , CMP, Mag Encounter Details Date Type Department Care Team (Late st Contact Info) Description 10/13/2018 Telephone Hematology/Oncology at [address] [phone] Lashawn Skelton, RN Labs Only (Lab tracking CBC, CMP, Mag) Social History Tobacco Use Types Packs/Day Years Used Date Smoking Tobacco: Never Smokeless Tobacco: Never Sex and Gender Information Value Date Recorded Sex Assigned at Not on file Gender Identity Not on file Sexual Orientation Not on file documented as of this encounter Miscellaneous Notes * Telephone Encounter - Lashawn Skelton RN - 10/13/2018 9:41 AM EDT LAB TRACKING Brayan Pierre 1955 [id number] DIAGNOSIS: Thymic cancer LABS ORDERED: cbc diff, bmp, magnesium, MEDICATIONS: Sutent 37.5 mg daily 2 weeks on, 1 weeks off Assessment/Plan: Dr. Wyatt solitarioayed Pt to start taking Sutant again- will be checking weekly CBC, BMP, and Mag. Will be drawn on at [facility]. OK'ed to start week 2 of sutant- arranged to get 2g Mag at [facility] (standing orders sent). Results for BRAYAN PIERRE ( ) as of 10/13/2018 09:39 Ref. Range 10/05/2018 00:00 10/12/2018 00:00 WBC Unknown 2.4 2.4 RBC Unknown 2.13 2.22 Hemoglobin Unknown 8.4 8.8 Hematocrit Unknown 25.3 25.6 Platelets Unknown 69 70 Neutr Abs (ANC) Unknown 1.3 Sodium Unknown 137 Potassium Unknown 3.7 Chloride Unknown 97 CO2 Unknown 31 BUN Unknown 15 Creatinine Unknown 0.7 Calcium Unknown 10.1 Magnesium Latest Ref Range: 1.6 - 2.3 mg/dL 1.4 1.1 (A) Folate Lvl Unknown >17.0 Vitamin B-12 Unknown 670 documented in this encounter Plan of Treatment Upcoming Encounters Date Type Department Care Team (Late st Contact Info) Description 02/24/2024 9:00 AM EDT Office Visit Hematology/Oncology at [address] [phone] Shon Schneider MD [facility] [place] [address] HEMATOLOGY AND ONCOLOGY [place], [place] [phone] 02/24/2024 9:30 AM EDT Infusion Hematology Oncology at [address] [phone] 03/02/2024 11:00 AM EDT Office Visit Hematology/Oncology at [address] [phone] Shon Schneider MD [facility] [place] [address] HEMATOLOGY AND ONCOLOGY [place], [place] [address] 03/02/2024 12:30 PM EDT Infusion Hematology Oncology at [address] [phone] 03/09/2024 10:00 AM EDT Office Visit Hematology/Oncology at [address] [phone] Shon Schneider MD [facility] [place] [address] Ciara Pitts TRANSMISSION SPECIALIST [address] [place] [address] DR HEMATOLOGY [place] [address] 03/09/2024 10:30 AM EDT Infusion Hematology Oncology at [address] [phone] documented as of this encounter Goals Goal [...] Associated Diagnosis Comments CBC (WITH DIFF) Routine 10/12/2018 MAGNESIUM Routine 10/12/2018 COMPREHENSIVE METABOLIC PANEL Routine 10/12/2018 documented in this encounter Results * (ABNORMAL) Magnesium (10/12/2018) [facility] Magnesium 1.1(A) 1.6 - 2.3 mg/dL Blood specimen (specimen) 10/12/2018 Shon Schneider MD CHEMISTRY ORDERABLES * Comprehensive metabolic panel (non-fasting) (10/12/2018) Blood Urea Nitrogen 15 Creatinine 0.7 Sodium 137 Potassium 3.7 Chloride 97 Carbon Dioxide 31 Calcium 10.1 Blood specimen (specimen) 10/12/2018 Shon Schneider MD CHEMISTRY ORDERABLES * CBC (with Diff) (10/12/2018) White Blood Cell 2.4 Red Blood Cell 2.22 Hemoglobin 8.8 Hematocrit 25.6 Platelet 70 Neutrophil Absolute (ANC) - Automated 1.3 Blood specimen (specimen) 10/12/2018 Shon Schneider MD HEMATOLOGY ORDERABLE S documented in this encounter Visit Diagnoses Not on filedocumented in this encounter Care Teams Grants Manager Relationship Specialty Start Date End Date Gloria Red MD [address] [place] [address] [place] [phone] PCP - General Family Medicine 05/26/17 12/03/18 documented as of this encounter
--- OUTSIDE RECORDS SUMMARY | 2024-02-24 01:25 | XMS_ITS | Encounter Summary ---
Author Organization [facility] [place] [address] Care Team Providers Care Nuclear Equipment Design Engineer Name Role Phone Gloria Red MD Primary Care Provider [phone] [phone] Encounter Details Date Type Department Care Team (Late st Contact Info) Description 10/06/2018 Orders Only [place] [address] Shon Schneider MD [facility] [place] [address] Thymic carcinoma; Hypomagnesemia Social History Tobacco Use [...] AM EDT Office Visit Hematology/Oncology at [address] [phone] Shon Schneider MD [facility] [place] [address] Ciara Pitts APRN [address] [place] [address] [place] [address] 02/24/2024 9:30 AM EDT Infusion Hematology Oncology at [address] [phone] 03/02/2024 11:00 AM EDT Office Visit Hematology/Oncology at [address] [phone] Shon Schneider MD [facility] [place] [address] HEMATOLOGY AND ONCOLOGY [place], [place] [address] 03/02/2024 12:30 PM EDT Infusion Hematology Oncology at [address] [phone] 03/09/2024 10:00 AM EDT Office Visit Hematology/Oncology at [address] [phone] Shon Schneider MD [facility] [place] [address] [place] [address] 03/09/2024 10:30 AM EDT Infusion Hematology Oncology at [address] [phone] documented as of this encounter Goals Goal [...] thymus documented in this encounter Care Teams Nuclear Equipment Design Engineer Relationship Specialty Start Date End Date Gloria Red MD [address] [place] [address] [place] [phone] PCP - General Family Medicine 05/26/17 12/03/18 documented as of this encounter
--- OUTSIDE RECORDS SUMMARY | 2024-02-24 01:25 | XMS_ITS | Encounter Summary ---
Author Organization [facility] [place] [address] Care Team Providers Care Digital Business Analyst Name Role Phone Gloria Red MD Primary Care Provider Reason for Visit * Reason Onset Date Comments Labs Only 07/28/2018 Encounter Details Date Type Department Care Team (Late st Contact Info) Description 07/28/2018 Telephone Hematology/Oncology at [address] [phone] Brionna Andrade RN Labs Only Social History Tobacco Use Types Packs/Day Years Used Date Smoking Tobacco: Never Smokeless Tobacco: Never Sex and Gender Information Value Date Recorded Sex Assigned at Not on file Gender Identity Not on file Sexual Orientation Not on file documented as of this encounter Miscellaneous Notes * Telephone Encounter - Brionna Andrade RN - 07/28/2018 10:50 AM EST Brayan Pierre [id number] DX: thymic cancer Medications: sutent 50 mg a day 4 weeks on 2 weeks off. Stopped on 07/20/18 due to low platelets Labs: Pt will have CBC Tuesday this week Transfuse one unit of platelets for plt count less than 20K at [facility] infusion room. Assessment/Plan Dr. Schneider reviewed pt's labs. Everything going up no further labs needed till he sees pt next Tuesday08/04/18, pt agrees with plan. Results for BRAYAN PIERRE ( ) as of 07/28/2018 10:51 Ref. Range 07/24/2018 00:00 07/26/2018 00:00 07/28/2018 00:00 WBC Unknown 2.86 2.7 3 Hemoglobin Unknown 9.4 8.9 8.8 Hematocrit Unknown 27.8 26.4 26.3 Platelets Unknown 31 40 45 Neutr Abs (ANC) Unknown 1.34 1.57 documented in this encounter Plan of Treatment Upcoming Encounters Date Type Department Care Team (Late st Contact Info) Description 02/24/2024 9:00 AM EDT Office Visit Hematology/Oncology at [address] [phone] Shon Schneider MD [facility] [place] [address] [place] [address] 02/24/2024 9:30 AM EDT Infusion Hematology Oncology at [address] [phone] 03/02/2024 11:00 AM EDT Office Visit Hematology/Oncology at [address] [phone] Shon Schneider MD [facility] [address] [address] [place] [address] 03/02/2024 12:30 PM EDT Infusion Hematology Oncology at [address] [phone] 03/09/2024 10:00 AM EDT Office Visit Hematology/Oncology at [address] [phone] Shon Schneider MD [facility] [place] [address] Ciara Pitts APRN [address] [place] [address] DR HEMATOLOGY AND ONCOLOGY [place], [place] [address] 03/09/2024 10:30 AM EDT Infusion Hematology Oncology at [address] [phone] documented as of this encounter Goals Goal [...] Associated Diagnosis Comments CBC (WITH DIFF) Routine 07/28/2018 documented in this encounter Results * CBC (with Diff) (07/28/2018) White Blood Cell 3 Hemoglobin 8.8 Hematocrit 26.3 Platelet 45 Neutrophil Absolute (ANC) - Automated 1.57 Blood specimen (specimen) 07/28/2018 Historical Provider HEMATOLOGY ORDERA BLES documented in this encounter Visit Diagnoses Not on filedocumented in this encounter Care Teams Digital Business Analyst Relationship Specialty Start Date End Date Gloria Red MD [address] [place] [address] [place] [phone] PCP - General Family Medicine 05/26/17 12/03/18 documented as of this encounter
--- OUTSIDE RECORDS SUMMARY | 2024-02-24 01:25 | XMS_ITS | Encounter Summary ---
Author Organization [facility] [place] [address] Care Team Providers Care Calculus Professor Name Role Phone Gloria Red MD Primary Care Provider [phone] Reason for Visit * Reason Comments IV Medication IV Magnesium Encounter Details Date Type Department Care Team (Late st Contact Info) Description 08/25/2018 12:00 PM EDT Infusion Hematology Oncology at [address] [phone] Thymic carcinoma Social History Tobacco Use Types Packs/Day Years Used Date Smoking Tobacco: Never Smokeless Tobacco: Never Sex and Gender Information Value Date Recorded Sex Assigned at Not on file Gender Identity Not on file Sexual Orientation Not on file documented as of this encounter Progress Notes * Ute Chacon RN - 08/25/2018 12:00 PM EDT INFUSION THERAPY ADMINISTRATION NOTES DIAGNOSIS: Thymic cancer CYCLE #: NA REASON FOR VISIT: To receive IV magnesium replacement. SUBJECTIVE: Monica offers no complaints. OBJECTIVE: Seen by provider. LAB DATA: WBC - 4.4, H/H - 9.9/28.9, Plt Ct - 133, ANC - 3.0, Lytes wnl, BUN/CR - 13/0.6 IV ACCESS: Port accessed without difficulty, flushes readily with brisk blood return. Pre administration: Medication orders independently verified for drug name, route, and dosage per patient's height, weight and BSA by Laura Chacon RN and Bryce [facility]. REACTIONS (DESCRIPTION, TIME, INTERVENTION AND [...] AM EDT Office Visit Hematology/Oncology at [address] [phone] Shon Schneider MD [facility] [place] [address] [place] [address] 02/24/2024 9:30 AM EDT Infusion Hematology Oncology at [address] [phone] 03/02/2024 11:00 AM EDT Office Visit Hematology/Oncology at [address] [phone] Shon Schneider MD [facility] [place] [address] [place] [address] 03/02/2024 12:30 PM EDT Infusion Hematology Oncology at [address] [phone] 03/09/2024 10:00 AM EDT Office Visit Hematology/Oncology at [address] [phone] Shon Schneider MD [facility] [place] [address] Ciara Pitts APRN [address] [place] [address] DR HEMATOLOGY AND ONCOLOGY [place], [place] [phone] 03/09/2024 10:30 AM EDT Infusion Hematology Oncology at [address] [phone] documented as of this encounter Goals Goal [...] 1 g, Intravenous, ONCE, 1 dose, On Tue08/25/18 at 1200, Administer over 60 Minutes New Bag 08/25/2018 12:00 PM EDT 1 g 100 mL/hr documented in this encounter Care Teams Calculus Professor Relationship Specialty Start Date End Date Gloria Red MD [address] [place] [address] [place] [phone] PCP - General Family Medicine 05/26/17 12/03/18 documented as of this encounter
--- OUTSIDE RECORDS SUMMARY | 2024-02-24 01:25 | XMS_ITS | Encounter Summary ---
Author Organization [facility] [place] [address] Care Team Providers Care Head Gauge Unit Operator Name Role Phone Gloria Red MD Primary Care Provider [phone] Reason for Visit * Reason Comments Chemotherapy Cycle 16 Day 1 Taxol /Carbo * Treatment/Therapy Plan Authorization (Routine) - Closed Specialty Diagnoses / Procedures Referred By Franklyn del rio Referred To Contact Hematology and Oncology Diagnoses Thymic carcinoma Procedures TC PALONOSETRON HCL, 25MCG, INJECTION (ALOXI) TC FOSAPREPITANT, 1MG, INJECTION (EMEND) TC CARBOPLATIN, 50MG, INJECTION (PARAPLATIN) TC PACLITAXEL, 1MG, INJ TC PEGFILGRASTIM, 6MG, INJECTION Jerrod White MD [address] [place] [address] [facility] Hem Onc Office [address] [place] [phone] Referral ID Status Reason Start Date Expiration Date Visits Re quested Visits Authorized [id number] Closed 05/27/2017 08/26/2018 18 18 Encounter Details Date Type Department Care Team (Late st Contact Info) Description 05/22/2018 8:00 AM EST Infusion Hematology Oncology at [address] [phone] Thymic carcinoma Social History Tobacco Use Types Packs/Day Years Used Date Smoking Tobacco: Never Smokeless Tobacco: Never Sex and Gender Information Value Date Recorded Sex Assigned at Not on file Gender Identity Not on file Sexual Orientation Not on file documented as of this encounter Last Filed Vital Signs Vital Sign Reading Time Taken Comments Blood Pressure 125/74 05/22/2018 2:40 PM EST Pulse 88 05/22/2018 2:40 PM EST Temperature 36.7 ??C (98.1 ??F) 05/22/2018 2:40 PM ES T Respiratory Rate 18 05/22/2018 2:40 PM EST Oxygen Saturation 100% 05/22/2018 2:40 PM EST Inhaled Oxygen Concentration - - Weight 123.6 kg (272 lb 6.4 oz) 05/22/2018 8:23 AM EST Height 176.5 cm (5' 9.49) 05/22/2018 8:23 AM ES T Body Mass Index 39.66 05/22/2018 8:23 AM EST documented in this encounter Progress Notes * Eden Vieira RN - 05/22/2018 8:00 AM EST INFUSION THERAPY ADMINISTRATION NOTES DIAGNOSIS: Thymic cancer CYCLE #16, Day 1 REASON FOR VISIT: Carbo Taxol infusion, Magnesium, Neulasta SUBJECTIVE Monica offers no complaints. OBJECTIVE LAB DATA: WNL for todays' infusion IV ACCESS: Mediport Pre administration: Chemotherapy orders independently verified for drug name, route, and dosage per patient's height, weight and BSA by Eden Vieira, RN & On-site pharmacist. REACTIONS (DESCRIPTION, TIME, INTERVENTION AND EFFECTIVENESS) 1342 Infusion (carbo, mag 4th gm) stopped, pt states her heart was beating really fast and [id number] (337mg) carboplatin infused at this time. BP 93/49, HR 129, 98%2L Desire Curran in the room atthis time 1346 Symptoms no change BP 116/57, HR 105, 100% 2L 1348 Symptoms no change BP 116/56, HR 104, 100% 2L 1349 Symptoms no change HR 121 100% 2L Dexamethasone 10mg IV given 1353 Symptoms no change BP 124/66 HR 99 100% 2L Benadryl 25mg IV given 1358 Symptoms no change BP134/71 HR 97 100% 2L 1401 Symptoms no change BP 147/91 HR 96 100%2L 1411 BP 152/92 HR 96 100%2L 1413 BP 162/86 HR 92 100% 2L 98.6temp, cold given warm blanket 1417 BP 147/91 and 139/90 HR 80 100% 2L heat sensation gone away, shivering 1421 BP with large cuff 136/79 HR 86 100%2L, no more chemo today, no more mag. 1440 VSS, pt resting in chair 1458 Pt states she is feeling back to normal, up to the restroom independently. 1520 Pt discharged by Desiree Curran and Serg Vieira O2 100% RA ASSESSMENT Monica was awake, alert, see above. PLAN Return to clinic per routine. documented in this encounter Plan of Treatment Upcoming Encounters Date Type Department Care Team (Late st Contact Info) Description 02/24/2024 9:00 AM EDT Office Visit Hematology/Oncology at [address] [phone] Shon Schneider MD [facility] [place] [address] HEMATOLOGY AND ONCOLOGY [place], [place] [address] 02/24/2024 9:30 AM EDT Infusion Hematology Oncology at [address] [phone] 03/02/2024 11:00 AM EDT Office Visit Hematology/Oncology at [address] [phone] Shon Schneider MD [facility] [place] [address] [address] [place] [address] 03/02/2024 12:30 PM EDT Infusion Hematology Oncology at [address] [phone] 03/09/2024 10:00 AM EDT Office Visit Hematology/Oncology at [address] [phone] Shon Schneider MD [facility] [place] [address] Ciara Pitts APRN [address] [place] [address] DR [place] [address] 03/09/2024 10:30 AM EDT Infusion Hematology Oncology at [address] [phone] documented as of this encounter Procedures Procedure Name Priority Date/Time Associated Diagnosis Comments LAB SCAN 05/22/2018 12:00 AM EST LAB SCAN 05/22/2018 12:00 AM EST documented in this encounter Results * SCAN DOC: LAB (05/22/2018 12:00 AM EST) Narrative 05/22/2018 12:00 AM EST Ordered by an unspecified provider. Scanning Provider MEDIA MGR SCAN EXT O RDR/RSLT * SCAN DOC: LAB (05/22/2018 12:00 AM EST) Narrative 05/22/2018 12:00 AM EST Ordered by an unspecified provider. 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 documented in this encounter Administered Medications Inactive Administered Medications - up to 3 most recent administrations Medication Order MAR Action Action Date Dose Rate Site aprepitant (CINVANTI) injection Emul 130 mg 130 mg, Intravenous, Administer over 2 Minutes, ONCE, 1 dose, On 05/22/18 at 0845, Alternative administration of IV push over 2 minutes is a recommendation from the talent management specialist., Routine Given 05/22/2018 9:11 AM EST 130 mg CARBOplatin (PARAPLATIN) 750 mg in dextrose 5% 325 mL chemo infusion 750 mg (Target AUC = 5), Intravenous, ONCE, 1 dose, On Tue05/22/18 at 0945, Administer over 30 Minutes, Hold Parameters: CARBOplatin, Call provider for serum creatinine less than (mg/dL): .2, Call provider for serum creatinine greater than (mg/dL): 2, External serum creatinine results used to calculate dose? Yes, Enter serum creatinine value (mg/dL): .66, Enter serum creatinine result date: 05/26/2017 New Bag 05/22/2018 1:28 PM EST 750 mg 650 mL/hr dexamethasone (DECADRON) injection 10 mg 10 mg, Intravenous, ONCE, 1 dose, On Tue05/22/18 at 0845, Administer 30 minutes prior to PACLitaxel Given 05/22/2018 9:14 AM EST 10 mg diphenhydrAMINE (BENADRYL) capsule 50 mg 50 mg, Oral, ONCE, 1 dose, On Tue05/22/18 at 0900, Administer 30 minutes prior to PACLitaxel Therapeutic interchange due to national shortage of IV form. Please inform pharmacy if patient cannot tolerate PO and requires IV., Routine Given 05/22/2018 9:08 AM EST 50 mg famotidine (PEPCID) injection 20 mg 20 mg, Intravenous, ONCE, 1 dose, On Tue05/22/18 at 0845, Administer 30 minutes prior to PACLitaxel Given 05/22/2018 9:17 AM EST 20 mg magnesium sulfate 1g in dextrose 5% 100mL 1 g, Intravenous, EVERY HOUR, 4 doses, First dose on Tue05/22/18 at 1000, Last dose on Tue05/22/18 at 1300, Administer over 60 Minutes New Bag 05/22/2018 12:43 PM EST 1 g 100 mL/hr New Bag 05/22/2018 11:40 AM EST 1 g 100 mL/hr New Bag 05/22/2018 10:34 AM EST 1 g 100 mL/hr PACLitaxel (TAXOL) 434 mg in dextrose 5% Non-PVC 572.3333 mL chemo infusion 434 mg (175 mg/m2/dose ? 2.48 m2 Treatment Plan BSA from Recorded weight), Intravenous, ONCE, 1 dose, On Tue05/22/18 at 0945, Administer over 3 Hours, Warning Vesicant/Irritant Medication New Bag 05/22/2018 10:12 AM EST 434 mg 190.8 mL/hr palonosetron (ALOXI) injection 0.25 mg 0.25 mg, Intravenous, ONCE, 1 dose, On Tue05/22/18 at 0845, Administer over 30 seconds. Administer prior to chemotherapy, Routine Given 05/22/2018 9:17 AM EST 0.25 mg pegfilgrastim (NEULASTA) injection 6 mg 6 mg, Subcutaneous, ONCE, 1 dose, On Tue05/22/18 at 1000, Bring to room temperature 15-30 mins before administration. , Routine, This agent is restricted to outpatient use. Is this drug being given as an outpatient? Yes Given 05/22/2018 1:28 PM EST 6 mg Right Arm documented in this encounter Care Teams Head Gauge Unit Operator Relationship Specialty Start Date End Date Gloria Red MD [address] [place] [address] [place] [phone] PCP - General Family Medicine 05/26/17 12/03/18 documented as of this encounter
--- OUTSIDE RECORDS SUMMARY | 2024-02-24 01:25 | XMS_ITS | Encounter Summary ---
Author Organization [facility] [place] [address] Care Team Providers Care Dental Service Chief Name Role Phone Gloria Red MD Primary Care Provider [phone] Encounter Details Date Type Department Care Team (Late Contact Info) Description 05/28/2018 Orders Only Hematology [place] [address] Shon Schneider MD [facility] [place] [address] Social History Tobacco Use Types Packs/Day Years [...] AM EDT Office Visit Hematology/Oncology at [address] [phone] Shon Schneider MD [facility] [place] [address] Ciara Pitts APRN [address] [place] [address] DR [place]Y [place] [address] 02/24/2024 9:30 AM EDT Infusion Hematology Oncology at [address] [phone] 03/02/2024 11:00 AM EDT Office Visit Hematology/Oncology at [address] [phone] Shon Schneider MD [facility] [place] [address] [place] [address] 03/02/2024 12:30 PM EDT Infusion Hematology Oncology at [address] [phone] 03/09/2024 10:00 AM EDT Office Visit Hematology/Oncology at [address] [phone] Shon Schneider MD [facility] [place] [address] [place]AT[place] [address] 03/09/2024 10:30 AM EDT Infusion Hematology Oncology at [address] [phone] documented as of this encounter Visit Diagnoses Not on filedocumented in this encounter Care Teams Dental Service Chief Relationship Specialty Start Date End Date Gloria Red MD [address] [place] [address] [place] [phone] PCP - General Family Medicine 05/26/17 12/03/18 documented as of this encounter
--- OUTSIDE RECORDS SUMMARY | 2024-02-24 01:25 | XMS_ITS | Encounter Summary ---
Author Organization [facility] [place] [address] Care Team Providers Care Pipe Fitter Ammonia Name Role Phone Gloria Red MD Primary Care Provider [phone] Reason for Visit * Reason Onset Date Comments Labs Only 10/10/2018 Lab tracking Encounter Details Date Type Department Care Team (Late st Contact Info) Description 10/10/2018 Telephone Hematology/Oncology at [address] [phone] Lashawn Skelton, RN Labs Only (Lab tracking) Social History Tobacco Use Types Packs/Day Years Used Date Smoking Tobacco: Never Smokeless Tobacco: Never Sex and Gender Information Value Date Recorded Sex Assigned at Not on file Gender Identity Not on file Sexual Orientation Not on file documented as of this encounter Miscellaneous Notes * Telephone Encounter - Lashawn Skelton, RN - 10/10/2018 10:19 AM EDT LAB TRACKING Brayan Pierre [id number] DIAGNOSIS: Thymic cancer LABS ORDERED: cbc diff, bmp, magnesium, MEDICATIONS: Sutent 37.5 mg daily 2 weeks on, 1 weeks off Assessment/Plan: Dr. Wyatt juarezed Pt to start taking Sutant again- will be checking weekly CBC, BMP, and Mag. Will be drawn on at [facility]. Results for BRAYAN PIERRE ( ) as of 10/10/2018 10:30 Ref. Range 09/07/2018 00:00 09/26/2018 00:00 10/05/2018 00:00 WBC Unknown 3.7 2.4 RBC Unknown 2.13 Hemoglobin Unknown 9.6 8.4 Hematocrit Unknown 28.7 25.3 Platelets Unknown 85 69 Neutr Abs (ANC) Unknown 2.33 Sodium Unknown 135 BUN Unknown 16 Creatinine Unknown 0.60 Magnesium Latest Units: mg/dL 1.4 1.4 Phosphorus Unknown 3.5 Folate Lvl Unknown >17.0 Vitamin B-12 Unknown 6[address]ORAGE ONLY CT CHEST ABDOMEN PELVIS Unknown Rpt documented in this encounter Plan of Treatment Upcoming Encounters Date Type Department Care Team (Late st Contact Info) Description 02/24/2024 9:00 AM EDT Office Visit Hematology/Oncology at [address] [phone] Shon Schneider MD [facility] [place] [address] HEMATOLOGY [place] [address] 02/24/2024 9:30 AM EDT Infusion Hematology Oncology at [address] [phone] 03/02/2024 11:00 AM EDT Office Visit Hematology/Oncology at [address] [phone] Shon Schneider MD [facility] [place] [address] HEMATOLOGY [place] [address] 03/02/2024 12:30 PM EDT Infusion Hematology Oncology at [address] [phone] 03/09/2024 10:00 AM EDT Office Visit Hematology/Oncology at [address] [phone] Shon Schneider MD [facility] [place] [address] Ciara Pitts APRN [address] [place] [address] DR HEMATOLOGY AND ONCOLOGY [place], [place] [phone] 03/09/2024 10:30 AM EDT Infusion Hematology Oncology at [address] [phone] documented as of this [...] Diagnosis Comments ORDS - PROVIDER CARE SCAN 10/13/2018 12:00 AM EDT CBC (WITH DIFF) Routine 10/05/2018 MAGNESIUM Routine 10/05/2018 FOLATE, SERUM Routine 10/05/2018 VITAMIN B12 Routine 10/05/2018 documented in this encounter Results * SCAN DOC: ORDS - PROVIDER CARE (10/13/2018 12:00 AM EDT) Narrative 10/13/2018 12:00 AM EDT Ordered by an unspecified provider. Scanning Provider MEDIA MGR SCAN EXT O RDR/RSLT * Vitamin B12 (10/05/2018) Vitamin B12 670 Blood specimen (specimen) 10/05/2018 Shon Schneider MD CHEMISTRY ORDERABLES * Folate, serum (10/05/2018) Folate >17.0 Blood specimen (specimen) 10/05/2018 Shon Schneider MD CHEMISTRY ORDERABLES * Magnesium (10/05/2018) Magnesium 1.4 mg/dL Blood specimen (specimen) 10/05/2018 Shon Schneider MD CHEMISTRY ORDERABLES * CBC (with Diff) (10/05/2018) White Blood Cell 2.4 Red Blood Cell 2.13 Hemoglobin 8.4 Hematocrit 25.3 Platelet 69 Blood specimen (specimen) 10/05/2018 Shon Schneider MD HEMATOLOGY ORDERABLE S documented in this encounter Visit Diagnoses Not on filedocumented in this encounter Care Teams Pipe Fitter Ammonia Relationship Specialty Start Date End Date Gloria Red MD [address] [place] [address] [place] [phone] PCP - General Family Medicine 05/26/17 12/03/18 documented as of this encounter
--- OUTSIDE RECORDS SUMMARY | 2024-02-24 01:25 | XMS_ITS | Encounter Summary ---
Author Organization [facility] [place] [address] Care Team Providers Care Fast Food Worker Name Role Phone Gloria Red MD Primary Care Provider [phone] Reason for Visit * Reason Onset Date Comments Other 07/06/2018 low magnesium Encounter Details Date Type Department Care Team (Late Contact Info) Description 07/06/2018 Telephone Hematology/Oncology at [address] [phone] Brionna Andrade RN Other (low magnesium) Social History Tobacco Use Types Packs/Day Years Used Date Smoking Tobacco: Never Smokeless Tobacco: Never Sex and Gender Information Value Date Recorded Sex Assigned at Not on file Gender Identity Not on file Sexual Orientation Not on file documented as of this encounter Miscellaneous Notes * Telephone Encounter - Brionna Anrdade RN - 07/06/2018 1:26 PM EST Pt unable to come to appointment today due to weather. Blanca reviewed her labs , everything looks good. Magnesium 1.4 still on low side so two grams of IV magnesium ordered to be given at [facility]. Pt agrees with plan. She will return to clinic on 07/21/18 with more labs. documented in this encounter Plan of Treatment Upcoming Encounters Date Type Department Care Team (Late Contact Info) Description 02/24/2024 9:00 AM EDT Office Visit Hematology/Oncology at [address] [phone] [facility] [place] [address] [address] HEMATOLOGY AND ONCOLOGY [place], [place] [address] [phone] 02/24/2024 9:30 AM EDT Infusion Hematology Oncology at [address] [phone] 03/02/2024 11:00 AM EDT Office Visit Hematology/Oncology at [address] [phone] [facility] [place] [address] [address] [place] [address] 03/02/2024 12:30 PM EDT Infusion Hematology Oncology at [address] [phone] 03/09/2024 10:00 AM EDT Office Visit Hematology/Oncology at [address] [phone] [facility] [place] [address] [address] HEMATOLOGY AND ONCOLOGY [place], [place] [phone] 03/09/2024 10:30 AM EDT Infusion Hematology Oncology at [address] [phone] documented as of this encounter Goals Goal [...] on filedocumented in this encounter Care Teams Fast Food Worker Relationship Specialty Start Date End Date Gloria Red MD [address] [place] [address] [place] [phone] PCP - General Family Medicine 05/26/17 12/03/18 documented as of this encounter
--- OUTSIDE RECORDS SUMMARY | 2024-02-24 01:25 | XMS_ITS | Encounter Summary ---
Author Organization [facility] [place] [address] Care Team Providers Care Social Sciences Department Chair Name Role Phone Gloria Red MD Primary Care Provider [phone] Reason for Visit * Reason Onset Date Comments Labs Only 08/03/2018 Encounter Details Date Type Department Care Team (Late st Contact Info) Description 08/03/2018 Telephone Hematology/Oncology at [address] [phone] Brionna Andrade RN Labs Only Social History Tobacco Use Types Packs/Day Years Used Date Smoking Tobacco: Never Smokeless Tobacco: Never Sex and Gender Information Value Date Recorded Sex Assigned at Not on file Gender Identity Not on file Sexual Orientation Not on file documented as of this encounter Miscellaneous Notes * Telephone Encounter - Brionna Andrade RN - 08/03/2018 12:01 PM EST Critical labs called in from [facility]. Reviewed with Dr. Schneider who is due to see pt tomorrow. Nothing for pt to do today per Dr. Schneider. Results for BRAYAN PIERRE ( ) as of 08/03/2018 12:02 Ref. Range 07/24/2018 00:00 07/26/2018 00:00 07/28/2018 00:00 08/03/2018 00:00 WBC Unknown 2.86 2.7 3 2.05 Hemoglobin Unknown 9.4 8.9 8.8 8.2 Hematocrit Unknown 27.8 26.4 26.3 25.1 Platelets Unknown 31 40 45 50 Neutr Abs (ANC) Unknown 1.34 1.57 1.07 documented in this encounter Plan of Treatment Upcoming Encounters Date Type Department Care Team (Late st Contact Info) Description 02/24/2024 9:00 AM EDT Office Visit Hematology/Oncology at [address] [phone] Shon Schneider MD [facility] [place] [address] [address] HEMATOLOGY AND ONCOLOGY [place], [place] [address] 02/24/2024 9:30 AM EDT Infusion Hematology Oncology at [address] [phone] 03/02/2024 11:00 AM EDT Office Visit Hematology/Oncology at [address] [phone] Shon Schneider MD [facility] [place] [address] [address] HEMATOLOGY AND ONCOLOGY [place], [place] [address] 03/02/2024 12:30 PM EDT Infusion Hematology Oncology at [address] [phone] 03/09/2024 10:00 AM EDT Office Visit Hematology/Oncology at [address] [phone] Shon Schneider MD [facility] [place] [address] Ci[address] Pitts [address] HEMATOLOGY [place] [address] 03/09/2024 10:30 AM EDT Infusion Hematology Oncology at [address] [phone] documented as of this encounter Goals Goal [...] Associated Diagnosis Comments CBC (WITH DIFF) Routine 08/03/2018 documented in this encounter Results * CBC (with Diff) (08/03/2018) White Blood Cell 2.05 Hemoglobin 8.2 Hematocrit 25.1 Platelet 50 Neutrophil Absolute (ANC) - Automated 1.07 Blood specimen (specimen) 08/03/2018 Historical Provider HEMATOLOGY ORDERA BLES documented in this encounter Visit Diagnoses Not on filedocumented in this encounter Care Teams Social Sciences Department Chair Relationship Specialty Start Date End Date Gloria Red MD [address] [place] [address] [place] [phone] PCP - General Family Medicine 05/26/17 12/03/18 documented as of this encounter
--- OUTSIDE RECORDS SUMMARY | 2024-02-24 01:25 | XMS_ITS | Encounter Summary ---
Author Organization [facility] [place] [address] Care Team Providers Care Piston Maker Name Role Phone Gloria Red MD Primary Care Provider [phone] Encounter Details Date Type Department Care Team (Late st Contact Info) Description 06/23/2018 3:00 PM EST Office Visit Hematology/Oncology at [address] [phone] Shon Schneider MD [facility] [place] [address] Thymic carcinoma; Other fatigue Social History Tobacco Use Types Packs/Day Years Used Date Smoking Tobacco: Never Smokeless Tobacco: Never Sex and Gender Information Value Date Recorded Sex Assigned at Not on file Gender Identity Not on file Sexual Orientation Not on file documented as of this encounter Last Filed Vital Signs Vital Sign Reading Time Taken Comments Blood Pressure 139/84 06/23/2018 2:53 PM EST Pulse 85 06/23/2018 2:53 PM EST Temperature 37.3 ??C (99.1 ??F) 06/23/2018 2:53 PM ES T Respiratory Rate 18 06/23/2018 2:53 PM EST Oxygen Saturation 100% 06/23/2018 2:53 PM EST Inhaled Oxygen Concentration - - Weight 123.3 kg (271 lb 12.8 oz) 06/23/2018 2:53 PM EST Height - - Body Mass Index 39.58 05/22/2018 8:23 AM EST documented in this encounter Progress Notes * Shon Schneider MD - 06/23/2018 3:00 PM EST Subjective: Patient ID: Monica Jaramillo is a 62 y.o. female. Problem List: 1. Thymic carcinoma, [...] - CONSULT SLIDES FROM [facility]; [place], [place]: A. MEDIASTINUM, MASS, BIOPSY ([id number]; 03/22/2017): ? 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 ?Immunohistochemistry performed at the outside institution and reviewed at [facility] demonstrates the following staining profile in lesional cells: ? Positive - AE1/AE3, p40, PAX8, CD117, CD5(multifocal), CK7(scattered cells), synaptophysin, chromogranin ? Negative - CK20, TTF-1, GATA3, CD34 ? The immunohistochemical profile supports the above diagnosis. ? Ki67 (MIB-1) proliferation index performed at the referring institution and reviewed at [facility] is focally up to ~30%. NOTE: While diffuse synaptophysin and chromogranin expression is unusual for conventional thymic carcinoma, the overall histomorphology and immunophenotype is most in keeping with THYMIC SQUAMOUS CARCINOMA.?The extent of PAX8 and CD117 staining would be unusual for Nut carcinoma. B. MEDIASTINUM, ANTERIOR, 4.5 CM, ULTRASOUND GUIDED FINED NEEDLE ASPIRATION ([id number]; 03/22/17): The cytologic preparations were not reviewed [...] hernias, without evidence of obstruction or strangulation. 2. H/o atrial fibrillation 3. HTN 4. [...] by her . She is feeling generally well. Her appetite is good and her weight is stable. Her energy level is good. She has no SOB. No focal weakness. Nochest pain or pain elsewhere. No symptoms of neuropathy. She had good holidays. She has some anxiety about starting a new treatment but otherwise is doing very well.. She will start the sutent tomorrow. 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 Fam Hx: No h/o cancer Review of Systems Objective: Physical Exam Constitutional: She is oriented [...] Her behavior is normal. Vitals reviewed. Labs (06/20/18): WBC/ANC - 3.01/2830, Hgb/Hct - 8.5/25.7, Plts - 108,000. BUN/Cr - 13/0.6. Glucose - 116, Mg - 1.2 - , Alb - 4.3, Phos - 3.6 TSH - 2.13, Free T4 - 1.46 (WNL) ECG - atrial fibrillation with HR of Assessment and Plan: Ms. Jaramillo is a 63 yo female seen in f/u of thymic carcinoma, as summarized above. She is receiving therapy with carboplatin and etoposide and has received 16 cycles. During the carboplatin infusion with cycle 16, she had an infusion reaction consisting of flushing, tachycardia andhypotension which resolved with additional dexamethasone and benadryl. She has also had significantproblems with myelosuppression including anemia and thrombocytopenia. She received a blood transfusion on 04/15/18 for a hemoglobin of 7. The CT done 05/11/18 showed the disease to be stable per the report. Given the infusion reaction tothe carboplatiin as well as the cumulative toxicites, we are stopping the carboplatin/paclitaxel. We had discussed changing therapy to pembrolizumab now, ie before she has evidence of disease progression given that progression of the cancer may be associated with significant symptoms. I spoke with Dr. Vega at [facility] who also feels this is reasonable. However, this was not approved by her insurance company as pembrolizumab is not included on the NCCN list of recommended therapies. We submitted an appeal letter with supporting phase II data and I did a peer to peer review (Dr. Osborn) for this yesterday. This is not approved at this time. The re commendation was to proceed with one of the NCCN recommended second line therapies for thymic carcinoma. If/when she has progression on that, it was suggested that we re-apply for the pembrolizumab. For my reference, they recommend including results of two phase II trials. There is no guarantee that this would be approved then, but it would be worth trying. I had spoken with Dr. Vega yesterday. His thought was to try sunitinib. If she were willing to travel, they may have immunotherapy clinical trials available. I called her in late 05/30 and went over these options with her by phone. She may be interested in clinical trials if there is an option. I sent Dr. Vega a message to ask if there are options available and there are not, at least at [facility]. He mentioned that [facility] or [place] may have something. I mentioned this to her today. She is not interested in pursuing that. We have talked about the sunitinib, including efficacy, dose and schedule (50 pg PO per day for 4 weeks followed by 2 weeks off with cycles repeated every 6 weeks) and side effects. She will start this tomorrow. We will see her every 2 weeks during the first cycle with labs. We will plan to recheckthyroid tests prior to cycle 2 in 6 weeks and will plan to repeat the Echo 3 months after starting therapy. We are going to arrange for her to receive IV magnesium, 2 grams x 2 doses, at [facility] next week. Foundation One testing. Per the report, there were 3 genomic findings but no therapies associated with potential clinical benefit. documented in this encounter Plan of Treatment Upcoming Encounters Date Type Department Care Team (Late st Contact Info) Description 02/24/2024 9:00 AM EDT Office Visit Hematology/Oncology at [address] [phone] Shon Schneider MD [facility] [place] [address] HEMATOLOGY AND ONCOLOGY [place], [place] [phone] 02/24/2024 9:30 AM EDT Infusion Hematology Oncology at [address] [phone] 03/02/2024 11:00 AM EDT Office Visit Hematology/Oncology at [address] [phone] Shon Schneider MD [facility] [place] [address] HEMATOLOGY AND ONCOLOGY [place], [place] [address] 03/02/2024 12:30 PM EDT Infusion Hematology Oncology at [address] [phone] 03/09/2024 10:00 AM EDT Office Visit Hematology/Oncology at [address] [phone] Shon Schneider MD [facility] [place] [address] [address] HEMATOLOGY AND ONCOLOGY [place], [place] [address] 03/09/2024 10:30 AM EDT Infusion Hematology Oncology at [address] [phone] documented as of this encounter Goals Goal Patient Goal Type Associated Problems Recent Progress Patient-Stated? Author Home Medication Compliance and Understanding Patient Facing Action Plan On track( 019 3:22 PM EST) No Ivana Vanegas, [facility] Note: Remain 95% or better adherent to chemotherapy without severe side effects as assessed by days supply and patient reported adverse events at each refill documented as of this encounter Procedures Procedure Name Priority Date/Time Associated Diagnosis Comments LAB SCAN 07/20/2018 12:00 AM EST ECHO SCAN (SCAN) 06/20/2018 12:0 0 AM EST LAB SCAN 06/20/2018 12:00 AM EST LAB SCAN 06/20/2018 12:00 AM EST ECG SCAN 06/20/2018 12:00 AM EST documented in this encounter Results * SCAN DOC: LAB (07/20/2018 12:00 AM EST) Narrative 07/20/2018 12:00 AM EST Ordered by an unspecified provider. Scanning Provider MEDIA MGR SCAN EXT O RDR/RSLT * SCAN DOC: LAB (06/20/2018 12:00 AM EST) Narrative 06/20/2018 12:00 AM EST Ordered by an unspecified provider. Scanning Provider MEDIA MGR SCAN EXT O RDR/RSLT * SCAN DOC: LAB (06/20/2018 12:00 AM EST) Narrative 06/20/2018 12:00 AM EST Ordered by an unspecified provider. Scanning Provider MEDIA MGR SCAN EXT O RDR/RSLT * SCAN DOC: ECHO (06/20/2018 12:00 AM EST) Anatomical Region Laterality Modality Cardiac Other Narrative 06/20/2018 12:00 AM EST Ordered by an unspecified provider. Scanning Provider MEDIA MGR SCAN EXT O RDR/RSLT * SCAN DOC: ECG (06/20/2018 12:00 AM EST) Narrative 06/20/2018 12:00 AM EST Ordered by an unspecified provider. Scanning Provider MEDIA MGR SCAN EXT O RDR/RSLT documented in this encounter Visit Diagnoses Diagnosis Thymic carcinoma Malignant neoplasm of thymus Other fatigue Thymic carcinoma Malignant neoplasm of thymus documented in this encounter Care Teams Piston Maker Relationship Specialty Start Date End Date Gloria Red MD [address] [place] [address] [place] [phone] PCP - General Family Medicine 05/26/17 12/03/18 documented as of this encounter
--- OUTSIDE RECORDS SUMMARY | 2024-02-24 01:25 | XMS_ITS | Encounter Summary ---
Author Organization [facility] [place] [address] Care Team Providers Care Histopathology Technician Name Role Phone Gloria Red MD Primary Care Provider [phone] Encounter Details Date Type Department Care Team (Late st Contact Info) Description 07/21/2018 3:15 PM EST Office Visit Hematology/Oncology at [address] [phone] Desire Curran, CHAIN CARRIER [address] [facility] [place] [address] Thymic carcinoma Social History Tobacco Use Types Packs/Day Years Used Date Smoking Tobacco: Never Smokeless Tobacco: Never Sex and Gender Information Value Date Recorded Sex Assigned at Not on file Gender Identity Not on file Sexual Orientation Not on file documented as of this encounter Last Filed Vital Signs Vital Sign Reading Time Taken Comments Blood Pressure 142/71 07/21/2018 3:18 PM EST Pulse 84 07/21/2018 3:18 PM EST Temperature 36.5 ??C (97.7 ??F) 07/21/2018 3:18 PM ES T Respiratory Rate 16 07/21/2018 3:18 PM EST Oxygen Saturation 100% 07/21/2018 3:18 PM EST Inhaled Oxygen Concentration - - Weight 122.5 kg (270 lb) 07/21/2018 3:18 PM EST Height 176.5 cm (5' 9.49) 07/21/2018 3:18 PM ES T Body Mass Index 39.31 07/21/2018 3:18 PM EST documented in this encounter Progress Notes * Desire Curran, CHAIN CARRIER - 07/21/2018 3:15 PM EST Subjective: Patient ID: Monica Jaramillo [...] effusion with compression atelectasis. transferred to [facility] for further evaluation and workup [...] CONSULT SLIDES FROM [facility]; [place], [place]: A. MEDIASTINUM, MASS, BIOPSY ([id number]; 03/22/2017): ? MALIGNANT THYMIC EPITHELIAL NEOPLASM consistent [...] 4.5 CM, ULTRASOUND GUIDED FINED NEEDLE ASPIRATION ([id number]; 03/22/17): The cytologic preparations were not reviewed [...] Second opinion with Dr. Roddy Vega in [place]. They reviewed the pathology and concurred they [...] she is accompanied by her . She started Sutent on 06/24/18. Today is week #4 of planned 4 weeks. She had her labs drawn yesterday and it was discovered that she had a pltcount of 38. She was told to stop the Sutent yesterday and repeat plts today show relative stability at 37. Overall she tolerated the Sutent very well. 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 Fam Hx: No h/o cancer Review of Systems Constitutional: Negative. HENT: Positive for mouth sores (mouth sensitivity). Negative for trouble swallowing. Eyes: Negative. Respiratory: Negative. Cardiovascular: Negative. Gastrointestinal: Negative. Genitourinary: Negative. Musculoskeletal: Negative. Skin: Negative. Neurological: Negative. Psychiatric/Behavioral: Negative. BP 142/71 (Patient Position: Sitting) Pulse 84 Temp 36.5 ??C (97.7 ??F) (Oral) Resp 16 Ht 176.5 cm (5' 9.49) Wt 122.5 kg (270 lb) SpO2 100% BMI 39.31 kg/m?? Wt Readings from Last 3 Encounters: 07/21/18 122.5 kg (270 lb) 06/23/18 123.3 kg (271 lb 12.8 oz) 05/22/18 123.6 kg (272 lb 6.4 oz) Objective: Physical Exam Constitutional: She is oriented to person, place, and time. She appears well- developed and well-nourished. No distress. HENT: Head: Normocephalic and atraumatic. Mouth/Throat: Oropharynx is clear and moist. No oropharyngeal exudate. Thrush to posterior pharynx Eyes: No scleral icterus. Cardiovascular: Normal rate [...] Her behavior is normal. Vitals reviewed. Labs : 07/20/18 CBC: UVC 3.5 hemoglobin 9.8 platelets 38 ANC 1.6 07/21/18 CBC: WBC 3.1 hemoglobin 9.9 platelets 37 ANC 1.37 Assessment and Plan: Per Dr. Schneider: Ms. Jaramillo is a 63 yo female [...] symptoms. I spoke with Dr. Vega at [facility] who also feels this is [...] and there are not, at least at [facility]. He mentioned that [facility] or [place] may have something. I mentioned this to her today. She is not interested in pursuing that. Today: Stop sunitinib, (50 pg PO per day for 4 weeks followed by 2 weeks off with cycles repeated every 6 weeks). We will need to dose reduce the next cycle. In the meantime, plan on labs MWF next week to make sure her plt count doesn't drop below 20 in which case she may require a transfusion. If she does, she has a standing order placed up at [facility] for this. She had a type and screen done yesterday and we will plan to do one on Tuesday as well, along with her labs in case she needs the transfusion. Neutropenic precautions were reviewed as well. We will plan to recheck thyroid testsprior to cycle 2, and will plan to repeat the Echo 3 months after starting therapy. RTC 2wks to seeDr. Schneider for C#2. Foundation One testing. Per the report, there were 3 genomic findings but no therapies associated with potential clinical benefit. Desire Curran, MSN, BUSINESS PARTNER, AOCN Hematology/Oncology Nurse Practitioner [place], [place] [phone] documented in this encounter Miscellaneous Notes * Addendum Note - Boaz Elizalde RN - 07/21/2018 3:15 PM ESTAddended by: BOAZ ELIZALDE on: 07/21/2018 04:56 PM Modules accepted: Orders documented in this encounter Plan of Treatment Upcoming Encounters Date Type Department Care Team (Late st Contact Info) Description 02/24/2024 9:00 AM EDT Office Visit Hematology/Oncology at [address] [phone] Shon Schneider MD [facility] [place] [address] [address] HEMATOLOGY AND ONCOLOGY [place], [place] [address] 02/24/2024 9:30 AM EDT Infusion Hematology Oncology at [address] [phone] 03/02/2024 11:00 AM EDT Office Visit Hematology/Oncology at [address] [phone] Shon Schneider MD [facility] [place] [address] [address] HEMATOLOGY AND ONCOLOGY [place], [place] [address] 03/02/2024 12:30 PM EDT Infusion Hematology Oncology at [address] [phone] 03/09/2024 10:00 AM EDT Office Visit Hematology/Oncology at [address] [phone] Shon Schneider MD [facility] [place] [address] [address] HEMATOLOGY AND ONCOLOGY [place], [place] [address] 03/09/2024 10:30 AM EDT Infusion Hematology Oncology at [address] [phone] documented as of this encounter Goals Goal [...] Priority Date/Time Associated Diagnosis Comments LAB SCAN 07/28/2018 12:00 AM EST LAB SCAN 07/26/2018 12:00 AM EST LAB SCAN 07/24/2018 12:00 AM EST LAB SCAN 07/21/2018 12:00 AM EST CHEMOTHERAPY SCAN 07/20/2018 12: 00 AM EST documented in this encounter Results * SCAN DOC: LAB (07/28/2018 12:00 AM EST) Narrative 07/28/2018 12:00 AM EST Ordered by an unspecified provider. Scanning Provider MEDIA MGR SCAN EXT O RDR/RSLT * SCAN DOC: LAB (07/26/2018 12:00 AM EST) Narrative 07/26/2018 12:00 AM EST Ordered by an unspecified provider. Scanning Provider MEDIA MGR SCAN EXT O RDR/RSLT * SCAN DOC: LAB (07/24/2018 12:00 AM EST) Narrative 07/24/2018 12:00 AM EST Ordered by an unspecified provider. Scanning Provider MEDIA MGR SCAN EXT O RDR/RSLT * SCAN DOC: LAB (07/21/2018 12:00 AM EST) Narrative 07/21/2018 12:00 AM EST Ordered by an unspecified provider. Scanning Provider MEDIA MGR SCAN EXT O RDR/RSLT * SCAN DOC: CHEMOTHERAPY (07/20/2018 12:00 AM EST) Narrative 07/20/2018 12:00 AM EST Ordered by an unspecified provider. 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 documented in this encounter Care Teams Histopathology Technician Relationship Specialty Start Date End Date Gloria Red MD [address] [place] [address] [place] [phone] PCP - General Family Medicine 05/26/17 12/03/18 documented as of this encounter
--- OUTSIDE RECORDS SUMMARY | 2024-02-24 01:25 | XMS_ITS | Encounter Summary ---
Author Organization [facility] [place] [address] Care Team Providers Care Tissue Recovery Technician Name Role Phone Gloria Red MD Primary Care Provider [phone] Reason for Visit * Reason Onset Date Comments Labs Only 07/24/2018 lab tracking Encounter Details Date Type Department Care Team (Late st Contact Info) Description 07/24/2018 Telephone Hematology/Oncology at [address] [phone] Brionna Andrade RN Labs Only (lab tracking) Social History Tobacco Use Types Packs/Day Years Used Date Smoking Tobacco: Never Smokeless Tobacco: Never Sex and Gender Information Value Date Recorded Sex Assigned at Not on file Gender Identity Not on file Sexual Orientation Not on file documented as of this encounter Miscellaneous Notes * Telephone Encounter - Brionna Andrade RN - 07/24/2018 10:29 AM EST DX: thymic cancer Medications: sutent 50 mg a day 4 weeks on 2 weeks off. Stopped on 07/20/18 due to low platelets Labs: Pt will have CBC Tuesday this week Transfuse one unit of platelets for plt count less than 20K at [facility] infusion room. Assessment/Plan Dr. Schneider updated on labs via this note. Results for BRAYAN PIERRE ( ) as of 07/24/2018 10:30 Ref. Range 07/24/2018 00:00 WBC Unknown 2.86 Hemoglobin Unknown 9.4 Hematocrit Unknown 27.8 Platelets Unknown 31 documented in this encounter Plan of Treatment Upcoming Encounters Date Type Department Care Team (Late st Contact Info) Description 02/24/2024 9:00 AM EDT Office Visit Hematology/Oncology at [address] [phone] Shon Schneider MD [facility] [place] [address] [address] HEMATOLOGY AND ONCOLOGY [place], [place] [id number] 02/24/2024 9:30 AM EDT Infusion Hematology Oncology at [address] [phone] 03/02/2024 11:00 AM EDT Office Visit Hematology/Oncology at [address] [phone] Shon Schneider MD [facility] [place] [address] [address] HEMATOLOGY AND ONCOLOGY [place], [place] [address] 03/02/2024 12:30 PM EDT Infusion Hematology Oncology at [address] [phone] 03/09/2024 10:00 AM EDT Office Visit Hematology/Oncology at [address] [phone] Shon Schneider MD [facility] [place] [address] [address] HEMATOLOGY AND ONCOLOGY [place], [place] [address] 03/09/2024 10:30 AM EDT Infusion Hematology Oncology at [address] [phone] documented as of this encounter [...] Associated Diagnosis Comments CBC (WITH DIFF) Routine 07/24/2018 documented in this encounter Results * CBC (with Diff) (07/24/2018) White Blood Cell 2.86 Hemoglobin 9.4 Hematocrit 27.8 Platelet 31 Blood specimen (specimen) 07/24/2018 Historical Provider HEMATOLOGY ORDERA BLES documented in this encounter Visit Diagnoses Not on filedocumented in this encounter Care Teams Tissue Recovery Technician Relationship Specialty Start Date End Date Gloria Red MD [address] [place] [address] [place] [phone] PCP - General Family Medicine 05/26/17 12/03/18 documented as of this encounter
--- OUTSIDE RECORDS SUMMARY | 2024-02-24 01:25 | XMS_ITS | Encounter Summary ---
Author Organization [facility] [place] [address] Care Team Providers Care Education Officer Name Role Phone Gloria Red MD Primary Care Provider [phone] Encounter Details Date Type Department Care Team (Late st Contact Info) Description 09/13/2018 Specialty [place] [address] Ivana Vanegas [facility] Social History Tobacco Use Types Packs/Day Years Used Date Smoking Tobacco: Never Smokeless Tobacco: Never Sex and Gender Information Value Date Recorded Sex Assigned at Not on file Gender Identity Not on file Sexual Orientation Not on file documented as of this encounter Progress Notes * Ivana Mcmahan RPH - 09/13/2018 8:38 AM EDT Clinical Management Plan: Transfer of Care/Discharge Specialty Services Specialty Pharmacy Consultation; Ivana Mcmahan [facility] Comprehensive Medication Management (CMM) Monica Bocanegrasell [address] [place] [address] Telephone Information: Work Phone Not on file. Mobile Not on file. Is the patient transferring services to a different Specialty Pharmacy or discontinuing the medication? [facility] Medication: Sutent Reason for discontinuation or transfer: Insurance mandate Approximate date of discontinuation or transfer: 09/08/18 Patient's response to therapy: determined by clinic Summary of services provided by [facility] Specialty: consultation Summary of on-going needs: follow up scheduled Referral for additional services (if applicable): NA Instructions provided to patient about discharge/transfer: yes - . Provider aware of discontinuation or transfer: yes Patient understands no changes to current drug regimen were made at the appointment and that [facility] is[facility] (summary located at top of note) for provider review and follow up. Ivana Mcmahan RPH 09/13/18 8:38 AM documented in this encounter Plan of Treatment Upcoming Encounters Date Type Department Care Team (Late st Contact Info) Description 02/24/2024 9:00 AM EDT Office Visit Hematology/Oncology at [address] [phone] Shon Schneider MD [facility] [place] [address] Ci[address] [place] [address] 02/24/2024 9:30 AM EDT Infusion Hematology Oncology at [address] [phone] 03/02/2024 11:00 AM EDT Office Visit Hematology/Oncology at [address] [phone] Shon Schneider MD [facility] [place] [address] Ciara Pitts [address] [place] [address] 03/02/2024 12:30 PM EDT Infusion Hematology Oncology at [address] [phone] 03/09/2024 10:00 AM EDT Office Visit Hematology/Oncology at [address] [phone] Shon Schneider MD [facility] [place] [address] Ciara Pitts APRN [address] [place] [address] DR HEMATOLOGY AND ONCOLOGY [place], [place] [address] 03/09/2024 10:30 AM EDT Infusion Hematology Oncology at [address] [phone] documented as of this encounter Goals Goal [...] on filedocumented in this encounter Care Teams Education Officer Relationship Specialty Start Date End Date Gloria Red MD [address] [place] [address] [place] [phone] PCP - General Family Medicine 05/26/17 12/03/18 documented as of this encounter
--- OUTSIDE RECORDS SUMMARY | 2024-02-24 01:25 | XMS_ITS | Encounter Summary ---
Author Organization [facility] Address [facility] [place] [address] Care Team Providers Care Fire Pot Operator Name Role Phone Gloria Rde MD Primary Care Provider Encounter Details Date Type Department Care Team (Late st Contact Info) Description 05/12/2018 8:00 AM EST Office Visit Hematology/Oncology at [address] [phone] Shon Schneider MD [facility] [place] [address] Thymic carcinoma Social History Tobacco Use Types Packs/Day Years Used Date Smoking Tobacco: Never Smokeless Tobacco: Never Sex and Gender Information Value Date Recorded Sex Assigned at Not on file Gender Identity Not on file Sexual Orientation Not on file documented as of this encounter Last Filed Vital Signs Vital Sign Reading Time Taken Comments Blood Pressure 132/69 05/12/2018 7:55 AM EST Pulse 77 05/12/2018 7:55 AM EST Temperature 36.8 ??C (98.2 ??F) 05/12/2018 7:55 AM ES T Respiratory Rate 18 05/12/2018 7:55 AM EST Oxygen Saturation 100% 05/12/2018 7:55 AM EST Inhaled Oxygen Concentration - - Weight 125.1 kg (275 lb 12.8 oz) 05/12/2018 7:55 AM EST Height 176.5 cm (5' 9.49) 05/12/2018 7:55 AM ES T Body Mass Index 40.16 05/12/2018 7:55 AM EST documented in this encounter Progress Notes * Shon Schneider MD - 05/12/2018 8:00 AM EST Subjective: Patient ID: Monica Jaramillo [...] CONSULT SLIDES FROM [facility]; [place], [place]: A. MEDIASTINUM, MASS, BIOPSY ([id number]; 03/22/2017): ? 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 ?Immunohistochemistry performed at the outside institution and reviewed at [facility] demonstrates the following staining profile in lesional cells: ? Positive - AE1/AE3, p40, PAX8, CD117, CD5(multifocal), CK7(scattered cells), synaptophysin, chromogranin ? Negative - CK20, TTF-1, GATA3, CD34 ? The immunohistochemical profile supports the above diagnosis. ? Ki67 (MIB-1) proliferation index performed at the referring institution and reviewed at [facility] is focally up to ~30%. NOTE: While diffuse synaptophysin and chromogranin expression is unusual for conventional thymic carcinoma, the overall histomorphology and immunophenotype is most in keeping with THYMIC SQUAMOUS CARCINOMA.?The extent of PAX8 and CD117 staining would be unusual for Nut carcinoma. B. MEDIASTINUM, ANTERIOR, 4.5 CM, ULTRASOUND GUIDED FINED NEEDLE ASPIRATION ([id number]; 03/22/17): The cytologic preparations were not reviewed [...] Second opinion with Dr. Roddy Vega in [place]. They reviewed the pathology and concurred they [...] strangulation. 2. H/o atrial fibrillation 3. HTN HPI Ms. Jaramillo is seen in f/u thymic carcinoma. The history is summarized above. On presentation today, she is accompanied by her , Royce. She is feeling generally well and had a good holiday. She is eating well and her weight is stable or a little higher. No chest pain or SOB. No other areas of pain. Her bowel and bladder function is regular. She has some mild intermittent symptoms of neuropathy in her fingers and toes. This is stable and not affecting her activities. She does have some fatigue for a couple of days after chemotherapy. No fevers or chills. Soc Hx: , lives in [place], [place] Tob - Never Etoh - rare [...] is normal. Vitals reviewed. Labs: WBC/ANC - 3., Hgb/Hct -7.2/21.2, Plts - 66,000. BUN/Cr - 11/0.66. Glucose - 118, Magnesium - 1.1, Alb - 3.3. Lytes and LFTs o/w unremarkable CT report reviewed, images not available to me Assessment and Plan: Ms. Jaramillo is a 62 yo female seen in f/u of thymic carcinoma, as summarized above. She is receiving therapy with carboplatin and etoposide and has received 15 cycles. She has had significant problems with myelosuppression including anemia and thrombocytopenia. She received a blood transfusion on 04/15/18 for a hemoglobin of 7. Her magnesium is low again. She is not able to stay for magnesium today as she has to get her to an appt. We are going to give her 4 grams of magnesium at the time of treatment on 05/15. She will continue to take PO magnesium. She is taking 400 mg bid and was not able to tolerate trying to increase this to tid in the past. Radiologically, the disease appears to be stable per the report. We will ask that the images be pushed into the [facility] system. She has done very well overall but as noted above, she is having significant issues with myelosuppression, particularly anemia and thrombocytopenia. We will go ahead with a transfusion and will supplement the magnesium. We are gong to hold therapy which is scheduled for 05/15/18. Given the problems with myelosuppression, it does not appear that we are going to be able to continue this regimen without dose delays and/or significant dose reduction. I think it would be reasonable to consider changing therapy to pembrolizumab now, ie before she has evidence of disease progression given that progression of the cancer may be associated with significant symptoms. I spoke with Dr. Vega who also feels this is reasonable. Monica is willing to make that change but would like to wait until after the holidays to start something new given the uncertainty in terms of how she will tolerate this. However she also does not feel comfortable not receiving any therapy. Therefore, we will schedule one more cycle of carboplatin plus paclitaxel on 05/22, at reduced dose and plan to transition to pembrolizumab after that. It appears that [facility] testing was done but I don't have that complete report and we will try to get it. Per the report that I do have, there were 3 genomic findings but no therapies associated with potential clinical benefit. documented in this encounter Plan of Treatment Upcoming Encounters Date Type Department Care Team (Late st Contact Info) Description 02/24/2024 9:00 AM EDT Office Visit Hematology/Oncology at [address] [phone] Shon Schneider MD [facility] [place] [address] [address] HEMATOLOGY [place] [address] 02/24/2024 9:30 AM EDT Infusion Hematology Oncology at [address] [phone] 03/02/2024 11:00 AM EDT Office Visit Hematology/Oncology at [address] [phone] Shon Schneider MD [facility] [place] [address] HEMATOLOGY [place] [address] 03/02/2024 12:30 PM EDT Infusion Hematology Oncology at [address] [phone] 03/09/2024 10:00 AM EDT Office Visit Hematology/Oncology at [address] [phone] Shon Schneider MD [facility] [address] Ciara Pitts APRN [address] [place] [address] DR HEMATOLOGY AND ONCOLOGY [place], [place] [address] 03/09/2024 10:30 AM EDT Infusion Hematology Oncology at [address] [phone] documented as of this encounter Procedures Procedure Name Priority Date/Time Associated Diagnosis Comments LAB SCAN 05/12/2018 12:00 AM EST DIAGNOSTIC RADIOLOGY SCAN 05/11/2018 12:00 AM EST DIAGNOSTIC RADIOLOGY SCAN 05/11/2018 12:00 AM EST DIAGNOSTIC RADIOLOGY SCAN 05/11/2018 12:00 AM EST documented in this encounter Results * SCAN DOC: LAB (05/12/2018 12:00 AM EST) Narrative 05/12/2018 12:00 AM EST Ordered by an unspecified provider. Scanning Provider MEDIA MGR SCAN EXT O RDR/RSLT * SCAN DOC: DIAGNOSTIC RADIOLOGY (05/11/2018 12:00 AM EST) Anatomical Region Laterality Modality Other Narrative 05/11/2018 12:00 AM EST Ordered by an unspecified provider. Scanning Provider MEDIA MGR SCAN EXT O RDR/RSLT * SCAN DOC: DIAGNOSTIC RADIOLOGY (05/11/2018 12:00 AM EST) Anatomical Region Laterality Modality Other Narrative 05/11/2018 12:00 AM EST Ordered by an unspecified provider. Scanning Provider MEDIA MGR SCAN EXT O RDR/RSLT * SCAN DOC: DIAGNOSTIC RADIOLOGY (05/11/2018 12:00 AM EST) Anatomical Region Laterality Modality Other Narrative 05/11/2018 12:00 AM EST Ordered by an unspecified provider. 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 documented in this encounter Care Teams Fire Pot Operator Relationship Specialty Start Date End Date Gloria Red MD [address] [place] [address] [place] [phone] PCP - General Family Medicine 05/26/17 12/03/18 documented as of this encounter
--- OUTSIDE RECORDS SUMMARY | 2024-02-24 01:25 | XMS_ITS | Encounter Summary ---
Author Organization [facility] [place] [address] Care Team Providers Care Healthcare Consultant Name Role Phone Gloria Red MD Primary Care Provider [phone] Reason for Visit * Reason Comments IV Medication Magnesium Encounter Details Date Type Department Care Team (Late st Contact Info) Description 09/29/2018 9:30 AM EDT Infusion Hematology Oncology at [address] [phone] Hypomagnesemia Social History Tobacco Use Types Packs/Day Years Used Date Smoking Tobacco: Never Smokeless Tobacco: Never Sex and Gender Information Value Date Recorded Sex Assigned at Not on file Gender Identity Not on file Sexual Orientation Not on file documented as of this encounter Progress Notes * Marguerite Calvo RN - 09/29/2018 9:30 AM EDT INFUSION THERAPY ADMINISTRATION NOTES DIAGNOSIS: 1. Hypomagnesemia magnesium sulfate 1g in dextrose 5% 100mL DISCONTINUED: magnesium sulfate 2 g in sterile water 50 mL DISCONTINUED: magnesium sulfate 1g in dextrose 5% 100mL REASON FOR VISIT: Magnesium inufusion IV ACCESS: Mediport GAUGE: 19G BLOOD RETURN: [...] AM EDT Office Visit Hematology/Oncology at [address] [phone] Shon Schneider MD [facility] [place] [address] HEMATOLOGY AND ONCOLOGY [place], [place] [address] 02/24/2024 9:30 AM EDT Infusion Hematology Oncology at [address] [phone] 03/02/2024 11:00 AM EDT Office Visit Hematology/Oncology at [address] [phone] Shon Schneider MD [facility] [place] [address] HEMATOLOGY AND ONCOLOGY [place], [place] [address] 03/02/2024 12:30 PM EDT Infusion Hematology Oncology at [address] [phone] 03/09/2024 10:00 AM EDT Office Visit Hematology/Oncology at [address] [phone] Shon Schneider MD [facility] [place] [address] Ciara Pitts [address] HEMATOLOGY AND ONCOLOGY [place], [place] [address] 03/09/2024 10:30 AM EDT Infusion Hematology Oncology at [address] [phone] documented as of this encounter Goals Goal [...] in dextrose 5% 100mL 1 g, Intravenous, 2 TIMES DAILY, 2 doses, First dose (after last reorder) on Tue09/29/18 at 1015, Last dose on Tue09/30/18 at 0900, Administer over 60 Minutes New Bag 09/29/2018 9:53 AM EDT 1 g 100 mL/hr magnesium sulfate 1g in dextrose 5% 100mL 1 g, Intravenous, 2 TIMES DAILY, 1 dose, First dose (after last modification) on Tue09/29/18 at 1015, Administer over 60 Minutes New Bag 09/29/2018 10:15 AM EDT 1 g 100 mL/hr documented in this encounter Care Teams Healthcare Consultant Relationship Specialty Start Date End Date Gloria Red MD [address] [place] [address] [place] [phone] PCP - General Family Medicine 05/26/17 12/03/18 documented as of this encounter
--- OUTSIDE RECORDS SUMMARY | 2024-02-24 01:25 | XMS_ITS | Encounter Summary ---
Author Organization [facility] [place] [address] Care Team Providers Care Quality Control Name Role Phone Gloria Red MD Primary Care Provider [phone] Reason for Visit * Reason Onset Date Comments Labs Only 07/20/2018 low platelets Encounter Details Date Type Department Care Team (Late st Contact Info) Description 07/20/2018 Telephone Hematology/Oncology at [address] [phone] Brionna Andrade RN Labs Only (low platelets) Social History Tobacco Use Types Packs/Day Years Used Date Smoking Tobacco: Never Smokeless Tobacco: Never Sex and Gender Information Value Date Recorded Sex Assigned at Not on file Gender Identity Not on file Sexual Orientation Not on file documented as of this encounter Miscellaneous Notes * Telephone Encounter - Brionna Andrade RN - 07/20/2018 10:06 AM EST Pt with platelet count of 38k. Reviewed all labs with Desire Curran NP who will be seeing pt tomorrow. She would like pt to get another cbc diff and type and screen tomorrow. Standing orders sent to [facility] inf for pt to receive one unit platelets for plt count less than 20k with no premeds. Magnesium 1.3 pt will receive two grams of IV magnesium over 2 hours tomorrow at [facility] inf. Pt will stop sutent 50 mg today. (She has been on since 06/24/18 due to be done this cycle tomorrow) Pt agrees with plan and will see Desire Curran NP tomorrow at 315pm. documented in this encounter Plan of Treatment Upcoming Encounters Date Type Department Care Team (Late st Contact Info) Description 02/24/2024 9:00 AM EDT Office Visit Hematology/Oncology at [address] [phone] Shon Schneider MD [facility] [place] [address] [address] HEMATOLOGY AND ONCOLOGY [place], [place] [address] 02/24/2024 9:30 AM EDT Infusion Hematology Oncology at [address] [phone] 03/02/2024 11:00 AM EDT Office Visit Hematology/Oncology at [address] [phone] Shon Schneider MD [facility] [place] [address] HEMATOLOGY AND ONCOLOGY [place], [place] [address] 03/02/2024 12:30 PM EDT Infusion Hematology Oncology at [address] [phone] 03/09/2024 10:00 AM EDT Office Visit Hematology/Oncology at [address] [phone] Shon Schneider MD [facility] [place] [address] [address] HEMATOLOGY [place] [address] 03/09/2024 10:30 AM EDT Infusion Hematology Oncology at [address] [phone] documented as of this encounter Goals Goal [...] filedocumented in this encounter Care Teams Quality Control Relationship Specialty Start Date End Date Gloria Red MD [address] [place] [address] [place] [phone] PCP - General Family Medicine 05/26/17 12/03/18 documented as of this encounter
--- OUTSIDE RECORDS SUMMARY | 2024-02-24 01:25 | XMS_ITS | Encounter Summary ---
Author Organization [facility] [place] [address] Care Team Providers Care Pourer Bull Ladle Name Role Phone Gloria Red MD Primary Care Provider [phone] Reason for Visit * Reason Onset Date Comments Labs Only 10/20/2018 Lab Tracking Encounter Details Date Type Department Care Team (Late st Contact Info) Description 10/20/2018 Telephone Hematology/Oncology at [address] [phone] Lashawn Skelton, RN Labs Only (Lab Tracking) Social History Tobacco Use Types Packs/Day Years Used Date Smoking Tobacco: Never Smokeless Tobacco: Never Sex and Gender Information Value Date Recorded Sex Assigned at Not on file Gender Identity Not on file Sexual Orientation Not on file documented as of this encounter Miscellaneous Notes * Telephone Encounter - Lashawn Skelton, RN - 10/20/2018 8:37 AM EDT LAB TRACKING Brayan Pierre 1955 [id number] DIAGNOSIS: Thymic cancer LABS ORDERED: cbc diff, bmp, magnesium, MEDICATIONS: Sutent 37.5 mg daily 2 weeks on, 1 weeks off Assessment/Plan: Brayan is just about finished with week 2 of Sutent and then will have her OFF week. She will be seen 10/27 prior to next cycle of the Sutent- Brayan declined IV Mag at this point d/t diarrhea, cramping, and gas after last weeks IV infusion. Results for BRAYAN PIERRE ( ) as of 10/20/2018 08:40 Ref. Range 10/05/2018 00:00 10/12/2018 00:00 10/19/2018 00:00 WBC Unknown 2.4 2.4 4.5 RBC Unknown 2.13 2.22 2.34 Hemoglobin Unknown 8.4 8.8 9.2 Hematocrit Unknown 25.3 25.6 27.1 Platelets Unknown 69 70 79 Neutr Abs (ANC) Unknown 1.3 2.88 Sodium Unknown 137 138 Potassium Unknown 3.7 3.8 Chloride Unknown 97 96 CO2 Unknown 31 30 BUN Unknown 15 9 Creatinine Unknown 0.7 0.60 Calcium Unknown 10.1 9.2 Magnesium Latest Ref Range: 1.6 - 2.3 mg/dL 1.4 1.1 (A) 1.3 (A) Folate Lvl Unknown >17.0 Vitamin B-12 Unknown 670 documented in this encounter Plan of Treatment Upcoming Encounters Date Type Department Care Team (Late st Contact Info) Description 02/24/2024 9:00 AM EDT Office Visit Hematology/Oncology at [address] [phone] Shon Schneider MD [facility] [place] [address] HEMATOLOGY [place] [address] 02/24/2024 9:30 AM EDT Infusion Hematology Oncology at [address] [phone] 03/02/2024 11:00 AM EDT Office Visit Hematology/Oncology at [address] [phone] Shon Schneider MD [facility] [place] [address] Ciara Pitts [address] HEMATOLOGY AND ONCOLOGY [place], [place] [phone] 03/02/2024 12:30 PM EDT Infusion Hematology Oncology at [address] [phone] 03/09/2024 10:00 AM EDT Office Visit Hematology/Oncology at [address] [phone] Shon Schneider MD [facility] [place] [address] HEMATOLOGY AND ONCOLOGY [place], [place] [phone] 03/09/2024 10:30 AM EDT Infusion Hematology Oncology at [address] [phone] documented as of this encounter [...] Associated Diagnosis Comments CBC (WITH DIFF) Routine 10/19/2018 MAGNESIUM Routine 10/19/2018 BASIC METABOLIC PANEL Routine 10/19/2018 documented in this encounter Results * (ABNORMAL) Magnesium (10/19/2018) Magnesium 1.3(A) 1.6 - 2.3 mg/dL Blood specimen (specimen) 10/19/2018 Shon Schneider MD CHEMISTRY ORDERABLES * Basic Metabolic Panel (non-fasting) (10/19/2018) Blood Urea Nitrogen 9 Creatinine 0.60 Sodium 138 Potassium 3.8 Chloride 96 Carbon Dioxide 30 Calcium 9.2 Blood specimen (specimen) 10/19/2018 Shon Schneider MD CHEMISTRY ORDERABLES * CBC (with Diff) (10/19/2018) White Blood Cell 4.5 Red Blood Cell 2.34 Hemoglobin 9.2 Hematocrit 27.1 Platelet 79 Neutrophil Absolute (ANC) - Automated 2.88 Blood specimen (specimen) 10/19/2018 Shon Schneider MD HEMATOLOGY ORDERABLE S documented in this encounter Visit Diagnoses Not on filedocumented in this encounter Care Teams Pourer Bull Ladle Relationship Specialty Start Date End Date Gloria Red MD [address] [place] [address] [place] [address] PCP - General Family Medicine 05/26/17 12/03/18 documented as of this encounter
--- OUTSIDE RECORDS SUMMARY | 2024-02-24 01:26 | XMS_ITS | Encounter Summary ---
Author Organization [facility] [place] [address] Care Team Providers Care Director Of Global Sales Name Role Phone Gloria Red MD Primary Care Provider Reason for Visit * Reason Comments Chemotherapy Taxol, Cycle 8, Day 1 * Treatment/Therapy Plan Authorization (Routine) - Closed Specialty Diagnoses / Procedures Referred By Franklyn del rio Referred To Contact Hematology and Oncology Diagnoses Thymic carcinoma Procedures TC PALONOSETRON HCL, 25MCG, INJECTION (ALOXI) TC FOSAPREPITANT, 1MG, INJECTION (EMEND) TC CARBOPLATIN, 50MG, INJECTION (PARAPLATIN) TC PACLITAXEL, 1MG, INJ TC PEGFILGRASTIM, 6MG, INJECTION Jerrod White MD [address] [place] [address] [facility] Hem Onc Office [address] [place] [phone] Referral ID Status Reason Start Date Expiration Date Visits Re quested Visits Authorized [id number] Closed 05/27/2017 08/26/2018 18 18 Encounter Details Date Type Department Care Team (Late st Contact Info) Description 10/24/2017 8:30 AM EDT Infusion Hematology Oncology at [address] [phone] Thymic carcinoma Social History Tobacco Use Types Packs/Day Years Used Date Smoking Tobacco: Never Smokeless Tobacco: Never Sex and Gender Information Value Date Recorded Sex Assigned at Not on file Gender Identity Not on file Sexual Orientation Not on file documented as of this encounter Progress Notes * Marguerite Calvo RN - 10/24/2017 8:30 AM EDT INFUSION THERAPY ADMINISTRATION NOTES DIAGNOSIS: Thymic carcinoma CYCLE # 8, Day 1 REASON FOR VISIT: Carbo/Taxol infusion SUBJECTIVE Monica offers no complaints. OBJECTIVE LAB DATA: WNL for today's infusion. Mg 1.[address] White. IV ACCESS: Mediport Pre administration: Chemotherapy orders independently verified for drug name, route, and dosage per patient's height, weight and BSA by Marguerite Calvo RN & On-site pharmacist. REACTIONS (DESCRIPTION, TIME, INTERVENTION AND EFFECTIVENESS) none ASSESSMENT Monica was awake, alert and tolerated treatment well. PLAN Return to clinic per routine. documented in this encounter Plan of Treatment Upcoming Encounters Date Type Department Care Team (Late st Contact Info) Description 02/24/2024 9:00 AM EDT Office Visit Hematology/Oncology at [address] [phone] Shon Schneider MD [facility] [place] [address] [place] [address] 02/24/2024 9:30 AM EDT Infusion Hematology Oncology at [address] [phone] 03/02/2024 11:00 AM EDT Office Visit Hematology/Oncology at [address] [phone] Shon Schneider MD [facility] [place] [address] Ci[address] Pitts [address] HEMATOLOGY AND ONCOLOGY [place], [place] [address] 03/02/2024 12:30 PM EDT Infusion Hematology Oncology at [address] [phone] 03/09/2024 10:00 AM EDT Office Visit Hematology/Oncology at [address] [phone] Shon Schneider MD [facility] [place] [place] [address] HEMATOLOGY AND ONCOLOGY [place], [place] [id number] 03/09/2024 10:30 AM EDT Infusion Hematology Oncology at [address] [phone] documented as of this encounter Visit Diagnoses Diagnosis 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 documented in this encounter Administered Medications Inactive Administered Medications - up to 3 most recent administrations Medication Order MAR Action Action Date Dose Rate Site CARBOplatin (PARAPLATIN) 900 mg in dextrose 5% 340 mL chemo infusion 900 mg (Target AUC = 6), Intravenous, ONCE, 1 dose, On Tue10/24/17 at 1000, Administer over 30 Minutes, Hold Parameters: CARBOplatin, Call provider for serum creatinine less than (mg/dL): .2, Call provider for serum creatinine greater than (mg/dL): 2, External serum creatinine results used to calculate dose? Yes, Enter serum creatinine value (mg/dL): .5, Enter serum creatinine result date: 05/26/2017 New Bag 10/24/2017 1:23 PM EDT 900 mg 680 mL/hr dexamethasone (DECADRON) injection 10 mg 10 mg, Intravenous, ONCE, 1 dose, On Tue10/24/17 at 0900, Administer 30 minutes prior to PACLitaxel Given 10/24/2017 8:59 AM EDT 10 mg diphenhydrAMINE (BENADRYL) injection 25 mg 25 mg, Intravenous, ONCE, 1 dose, On Tue10/24/17 at 0900, Administer 30 minutes prior to PACLitaxel, Routine Given 10/24/2017 9:04 AM EDT 25 mg famotidine (PEPCID) injection 20 mg 20 mg, Intravenous, ONCE, 1 dose, On Tue10/24/17 at 0900, Administer 30 minutes prior to PACLitaxel Given 10/24/2017 9:01 AM EDT 20 mg fosaprepitant (EMEND) 150 mg in sodium chloride 0.9% 255 mL infusion 150 mg, Intravenous, at 510 mL/hr, Administer over 30 Minutes, ONCE, 1 dose, On Tue10/24/17 at 0900, Routine New Bag 10/24/2017 9:08 AM EDT 150 mg 510 mL/hr heparin, porcine 100 unit/mL flush 500 Units 500 Units, Intravenous, ONCE PRN, Starting on Tue10/24/17 at 0843, Until Tue10/24/17 at 1616, Line Care, Refer to Intravenous (IV) Procedure: Accessing Implanted Vascular Access Devices (131) procedure and/or Intravenous (IV) Job Aid: Adult Flushing & Catheter Care (8279) job aid for additional information regarding guidelines and administration., Routine Given 10/24/2017 2:15 PM EDT 500 Units magnesium sulfate 1g in dextrose 5% 100mL 1 g, Intravenous, ONCE, 1 dose, On Tue10/24/17 at 0900, Administer over 60 Minutes New Bag 10/24/2017 9:45 AM EDT 1 g 100 mL/hr PACLitaxel (TAXOL) 480 mg in dextrose 5% Non-PVC 580 mL chemo infusion 480 mg (200 mg/m2/dose ? 2.4 m2 Treatment Plan BSA from Recorded weight), Intravenous, ONCE, 1 dose, On Tue10/24/17 at 1000, Administer over 3 Hours, Warning Vesicant/Irritant Medication New Bag 10/24/2017 10:01 AM EDT 480 mg 193.3 mL/hr palonosetron (ALOXI) injection 0.25 mg 0.25 mg, Intravenous, ONCE, 1 dose, On Tue10/24/17 at 0900, Administer over 30 seconds. Administer prior to chemotherapy, Routine Given 10/24/2017 8:58 AM EDT 0.25 mg pegfilgrastim (NEULASTA) injection 6 mg 6 mg, Subcutaneous, ONCE, 1 dose, On Tue10/24/17 at 0900, Bring to room temperature 15-30 mins before administration. , Routine Given 10/24/2017 1:17 PM EDT 6 mg Right Arm sodium chloride 0.9 % flush 5-20 mL 5-20 mL, Intravenous, EVERY 1 MIN PRN, Starting on Tue10/24/17 at 0843, Until Tue10/24/17 at 1616, Line Care, Flush pertains to all indwelling lines. Flush per protocol found in the job aid using the link provided on this medication record. Refer to Intravenous (IV) Job Aid: Adult Flushing & Catheter Care (6332) job aid for additional information regarding guidelines and administration., Routine Given 10/24/2017 2:15 PM EDT 20 mLs documented in this encounter Care Teams Director Of Global Sales Relationship Specialty Start Date End Date Gloria Red MD [address] [place] [address] [place] [phone] PCP - General Family Medicine 05/26/17 12/03/18 documented as of this encounter
--- OUTSIDE RECORDS SUMMARY | 2024-02-24 01:26 | XMS_ITS | Encounter Summary ---
Author Organization [facility] Address [facility] [place] [address] Care Team Providers Care Angiographer Name Role Phone Gloria Red MD Primary Care Provider Encounter Details Date Type Department Care Team (Latest Contact Info) Description 05/11/2018 - 05/11/2018 11:59 PM EST Hospital Encounter [place] [phone] Shon Schneider MD [facility] [place] [address] Discharge Disposition: Home Social History Tobacco Use [...] 1 tablet by mouth daily. potassium chloride (K-DUR/KLOR-CON) 20 mEq Tab Sust.Rel. Particle/CrystalIndic ations:hypokalemia prevention Take 20 mEq by mouth daily. Indications: hypokalemia prevention 0 albuterol 90 mcg/actuation HFA Aerosol Inhaler Inhale 2 puffs into the lungs every 4 hours as needed for Wheezing. Use with spacer 12/04/2018 magnesium oxide (MAG-OX) 400 mg TabletIndications:hyp omagnesemia Take 400 mg by mouth 2 times daily. Indications: hypomagnesemia 07/17/2021 lidocaine-prilocaine (EMLA) Cream Apply topically as needed. Please apply near area of mediport site prior to access. 30 g 05/28/2017 09/29/2018 prochlorperazine (COMPAZINE) 5 mg Tablet Take 1 [...] AM EDT Office Visit Hematology/Oncology at [address] [phone] Shon Schneider MD [facility] [place] [address] Ciara Pitts APRN [address] [place] [address] [place] [address] 02/24/2024 9:30 AM EDT Infusion Hematology Oncology at [address] [phone] 03/02/2024 11:00 AM EDT Office Visit Hematology/Oncology at [address] [phone] Shon Schneider MD [facility] [place] [address] Ci[address] Pitts [address] HEMATOLOGY AND ONCOLOGY [place], [place] [address] 03/02/2024 12:30 PM EDT Infusion Hematology Oncology at [address] [phone] 03/09/2024 10:00 AM EDT Office Visit Hematology/Oncology at [address] [phone] Shon Schneider MD [facility] [place] [address] HEMATOLOGY AND ONCOLOGY [place], [place] [phone] 03/09/2024 10:30 AM EDT Infusion Hematology Oncology at [address] [phone] documented as of this encounter Procedures Procedure Name Priority Date/Time Associated Diagnosis Comments FILM LIBRARY STORAGE ONLY CT CHEST ABDOMEN PELVIS Routine 05/11/2018 12:00 AM EST documented in this encounter Results * Film Library- Storage Only CT Chest Abdomen Pelvis (05/11/2018 12:00 AM EST) Narrative [facility] - 05/18/2018 12:57 PM EST This exam is for storage only and is auto-finalizing. Shon Schneider MD IMG FILM LIBRARY ORD ERABLES [place], [place] documented in this encounter Visit Diagnoses Not on filedocumented in this encounter Care Teams Angiographer Relationship Specialty Start Date End Date Gloria Red MD [address] [place] [address] [place] [phone] PCP - General Family Medicine 05/26/17 12/03/18 documented as of this encounter
--- OUTSIDE RECORDS SUMMARY | 2024-02-24 01:26 | XMS_ITS | Encounter Summary ---
Author Organization [facility] [place] [address] Care Team Providers Care Line Director Name Role Phone Gloria Red MD Primary Care Provider [phone] Encounter Details Date Type Department Care Team (Late st Contact Info) Description 10/10/2017 Telephone Hematology Oncology at [address] [phone] Phuong Marrero, RN Social History Tobacco Use Types Packs/Day Years Used Date Smoking Tobacco: Never Smokeless Tobacco: Never Sex and Gender Information Value Date Recorded Sex Assigned at Not on file Gender Identity Not on file Sexual Orientation Not on file documented as of this encounter Miscellaneous Notes * Telephone Encounter - Phuong Marrero RN - 10/10/2017 1:41 PM EDT ----- Message from Brandon Mcmahan sent at 10/10/2017 1:32 PM EDT ----- Regarding: Pt called not feeling well Contact: Good Afternoon, Monica just called and said that she has not been feeling well. She said that today she now has a fever of 101.2. Please give her a call back at [phone] White and patient sent to ER for evaluation. Patient will go to [facility]. Report Called to [facility] ER documented in this encounter Plan of Treatment Upcoming Encounters Date Type Department Care Team (Late st Contact Info) Description 02/24/2024 9:00 AM EDT Office Visit Hematology/Oncology at [address] [phone] Shon Schneider MD [facility] [place] [address] [address] Pitts [address] HEMATOLOGY AND ONCOLOGY [place], [place] [address] 02/24/2024 9:30 AM EDT Infusion Hematology Oncology at [address] [phone] 03/02/2024 11:00 AM EDT Office Visit Hematology/Oncology at [address] [phone] Shon Schneider MD [facility] [place] [place] [address] [address] HEMATOLOGY AND ONCOLOGY [place], [place] [address] 03/02/2024 12:30 PM EDT Infusion Hematology Oncology at [address] [phone] 03/09/2024 10:00 AM EDT Office Visit Hematology/Oncology at [address] [phone] Shon Schneider MD [facility] [place] [place] [address] Ciara Pitts APRN [address] [place] [address] [place] [address] 03/09/2024 10:30 AM EDT Infusion Hematology Oncology at [address] [phone] documented as of this encounter Visit Diagnoses Not on filedocumented in this encounter Care Teams Line Director Relationship Specialty Start Date End Date Gloria Red MD [address] [place] [address] [place] [address] PCP - General Family Medicine 05/26/17 12/03/18 documented as of this encounter
--- OUTSIDE RECORDS SUMMARY | 2024-02-24 01:26 | XMS_ITS | Encounter Summary ---
Author Organization [facility] [place] [address] Care Team Providers Care Carburizing Furnace Operator Name Role Phone Gloria Red MD Primary Care Provider [phone] Encounter Details Date Type Department Care Team (Late st Contact Info) Description 03/15/2018 Orders Only Hematology [place] [phone] Desire Curran APRN [address] [place] [address] [place] [address] Social History Tobacco Use Types Packs/Day Years [...] AM EDT Office Visit Hematology/Oncology at [address] [phone] Shon Schneider MD [facility] [place] [address] Ciara Pitts APRN [address] [place] [address] DR HEMATOLOGY [place] [address] 02/24/2024 9:30 AM EDT Infusion Hematology Oncology at [address] [phone] 03/02/2024 11:00 AM EDT Office Visit Hematology/Oncology at [address] [phone] Shon Schneider MD [facility] [place] [address] HEMATOLOGY [place] [address] 03/02/2024 12:30 PM EDT Infusion Hematology Oncology at [address] [phone] 03/09/2024 10:00 AM EDT Office Visit Hematology/Oncology at [address] [phone] Shon Schneider MD [facility] [place] [address] [address] HEMATOLOGY [place] [address] 03/09/2024 10:30 AM EDT Infusion Hematology Oncology at [address] [phone] documented as of this encounter Visit Diagnoses Not on filedocumented in this encounter Care Teams Carburizing Furnace Operator Relationship Specialty Start Date End Date Gloria Red MD [address] [place] [address] [place] [phone] PCP - General Family Medicine 05/26/17 12/03/18 documented as of this encounter
--- OUTSIDE RECORDS SUMMARY | 2024-02-24 01:26 | XMS_ITS | Encounter Summary ---
Author Organization [facility] Address [facility] [place] [address] Care Team Providers Care Machine Operator Transplanter Name Role Phone Gloria Red MD Primary Care Provider [phone] Encounter Details Date Type Department Care Team (Late st Contact Info) Description 04/14/2018 Orders Only Hematology Oncology at [address] [phone] Phuong Marrero, RN Thymic carcinoma Social History Tobacco Use [...] AM EDT Office Visit Hematology/Oncology at [address] [phone] Shon Schneider MD [facility] [place] [address] Ciara Pitts APRN [address] [place] [address] DR HEMATOLOGY AND ONCOLOGY [place], [place] [phone] 02/24/2024 9:30 AM EDT Infusion Hematology Oncology at [address] [phone] 03/02/2024 11:00 AM EDT Office Visit Hematology/Oncology at [address] [phone] Shon Schneider MD [facility] [place] [address] HEMATOLOGY AND ONCOLOGY [place], [place] [address] 03/02/2024 12:30 PM EDT Infusion Hematology Oncology at [address] [phone] 03/09/2024 10:00 AM EDT Office Visit Hematology/Oncology at [address] [phone] Shon Schneider MD [facility] [place] [address] [address] HEMATOLOGY AND ONCOLOGY [place], [place] [address] 03/09/2024 10:30 AM EDT Infusion Hematology Oncology at [address] [phone] documented as of this encounter Visit Diagnoses 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
--- OUTSIDE RECORDS SUMMARY | 2024-02-24 01:26 | XMS_ITS | Encounter Summary ---
Author Organization [facility] [place] [address] Care Team Providers Care Cementer Hand Name Role Phone Gloria Red MD Primary Care Provider Reason for Visit * Reason Comments Cancer Encounter Details Date Type Department Care Team (Late st Contact Info) Description 08/01/2017 8:30 AM EST Office Visit Hematology/Oncology at [address] [phone] Jerrod White MD [address] [place] [phone] Thymic carcinoma Social History Tobacco Use Types Packs/Day Years Used Date Smoking Tobacco: Never Smokeless Tobacco: Never Sex and Gender Information Value Date Recorded Sex Assigned at Not on file Gender Identity Not on file Sexual Orientation Not on file documented as of this encounter Last Filed Vital Signs Vital Sign Reading Time Taken Comments Blood Pressure 137/84 08/01/2017 8:26 AM EST Pulse 94 08/01/2017 8:26 AM EST Temperature 37.1 ??C (98.8 ??F) 08/01/2017 8:26 AM ES T Respiratory Rate 18 08/01/2017 8:26 AM EST Oxygen Saturation 100% 08/01/2017 8:26 AM EST Inhaled Oxygen Concentration - - Weight 117.5 kg (259 lb) 08/01/2017 8:26 AM EST Height 176.5 cm (5' 9.49) 08/01/2017 8:26 AM ES T cpoied Body Mass Index 37.71 08/01/2017 8:26 AM EST documented in this encounter Progress Notes * Jerrod White MD - 08/01/2017 8:30 AM EST Diagnosis: 1) 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 She hasbeen having significant discomfort for several days after each cycle of treatment. She has not found much benefit from Claritin or from a nonsteroidal anti-inflammatory or Tylenol. Her had some tramadol which she took and found that helpful. I have not ever used that in a clinical situationand considering its addiction potential I told her I did not favor doing that. She notes though therest of the month things are fine. We talked about restaging her since this is her third month of treatment (4 cycles). She had discussed doing a repeat CT scan with contrast of the chest at [facility] with[facility] physician there. She was initially staged with a PET scan. I told her I was fine with a CT scan. Otherwise though she is doing well overall and tolerating the chemotherapy after the initial achiness resolves. Past medical history and social history reviewed and unchanged from when I saw her 6 weeks ago. Past Medical History: Diagnosis Date ??? Atrial fibrillation ??? HTN (hypertension) ??? Obesity ??? Thymic cancer 04/2017 ??? 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 Ventral hernia Allergies Allergen Reactions ??? Penicillins Hives ??? Pollen Extracts Other (See Comments) rhinorrhea Medications 05/26/17 1403 Medication Sig Taking? meTOPROLOL succinate (TOPROL-XL) 200 mg Tablet Sustained Release 24 hr Take 200 mg by mouth daily. Indications: Multifocal Atrial Tachycardia Yes DILTiazem (CARDIZEM CD) 240 mg Capsule, Sust. Release 24 hr Take 240 mg by mouth daily. Indications: Ventricular Rate Control in Atrial Fibrillation Yes apixaban (ELIQUIS) 5 mg Tablet Take 5 mg by mouth 2 times daily. Yes multivitamin (THERAGRAN) Tablet Take 1 tablet by mouth daily. Yes Family History Problem Relation Age of Onset ??? Colorectal Cancer Mother Social History Social History ??? Marital status: Unknown Spouse name: N/A ??? Number of children: N/A ??? Years of education: N/A Occupational History ??? Not on file. Social History Main Topics ??? Smoking status: Never Smoker ??? Smokeless tobacco: Never Used ??? Alcohol use Not on file ??? Drug use: Not on file ??? Sexual activity: Not on file Other Topics Concern ??? Not on file Social History Narrative Review of Systems Constitutional: Negative for fever, chills, activity change, fatigue and unexpected weight change. HENT: Negative for sore throat, mouth sores and trouble swallowing. Eyes: Negative. Respiratory: Negative for cough, shortness of breath and wheezing. Cardiovascular: Negative for chest pain, palpitations and leg swelling. Gastrointestinal: Negative for nausea, vomiting, abdominal pain, diarrhea, constipation and abdominal distention. Genitourinary: Negative for dysuria and difficulty urinating. Musculoskeletal: Negative. Skin: Negative. Neurological: Negative. Hematological: Negative for adenopathy. Head: Normocephalic, without obvious abnormality, atraumatic Eyes: PERRL, conjunctiva/corneas clear, EOM's intact, fundi benign, both eyes Ears: Normal TM's and external ear canals, both ears Nose: Nares normal, septum midline, mucosa normal, no drainage or sinus tenderness Throat: Lips, mucosa, and tongue normal; teeth and gums normal Neck: Supple, symmetrical, trachea midline, no adenopathy, thyroid: not enlarged, symmetric, no tenderness/mass/nodules, no carotid bruit or JVD Back: Symmetric, no curvature, ROM normal, no CVA tenderness Lungs: Clear to auscultation bilaterally, respirations unlabored Chest Wall: No tenderness or deformity Heart: Regular rate and rhythm, S1, S2 normal, no murmur, rub or gallop Abdomen: Soft, non-tender, bowel sounds active all four quadrants, no masses, no organomegaly Extremities: Extremities normal, atraumatic, no cyanosis or edema Pulses: 2+ and symmetric Skin: Skin color, texture, turgor normal, no rashes or lesions Lymph nodes: Cervical, supraclavicular, and axillary nodes normal Neurologic: Normal Final Pathologic Diagnosis: MEDIASTINUM, MASS, BIOPSY: - Thymic epithelial neoplasm with neuroendocrine features. See comment. Comment: Histologic sections show a neoplastic proliferation of predominantly monomorphic epithelial cells with focal shobha formation, scattered enlarged atypical cells, large areas of necrosis, and rare mitotic figures. Rare intermixed lymphocytes are present. Based on the immunoprofile, the epithelial cells are most likely of thymic origin.?The primary two diagnostic considerations include a thymic squamous cell carcinoma and a thymic neuroendocrine tumor (with atypical carcinoid and a large cell neuroendocrine tumor both possibilities). The Ckit, CD5, and p40 expression all supportive of thymic squamous cell carcinoma; however the focal shobha formation and moderate expression of synaptophysin and chromogranin is more fitting for a thymic neuroendocrine tumor. Due to the scattered atypia and necrosis, we also considered a NUT midline carcinoma, however the lack of CD34 staining makes this less likely. IHC for NUT protein to better exclude a NUT midline carcinoma can be send out upon request. Final classification is deferred to resection.?Joint Yarner slides of this case were reviewed at the intradepartmental consultation conference. Immunoperoxidase stains were performed on this case to further characterize the lesion. ANTIBODY(CLONE)(BLOCK):RESULT Ckit (CD117) (EP10, Leica) (2): Positive CD5 (Rabbit Monoclonal, clone SP19, [employer]) (2): Positive PAX-8 (MRQ-50, [place]) (2): Positive P40 (BC28, [place]) (2): Positive Keratin AE1-AE3 (AE1-AE3, [employer]) (2): Positive Chromogranin (LK2H10, [place]) (2): Positive Synaptophysin (27G12, Leica) (2): Positive MIB-1 (DAKO) (MIB-1, Dako) (2): 5-15% nuclei positive CK7 (RN7, Leica) (2): Negative CK20 (Ks20.8, Leica) (2): Negative TTF-1 (8G7G3/1, [place]) (2): Negative GATA3 (L50-823, [place]) (2): Negative CD34 (QBEnd/10, Leica) (2): Negative CASE: [id number] Second Opinion PATIENT: MONICA GOODMANSELL [facility] Department of Pathology [address] [place] [address] License No.: [id number] Rn Employee Health: Dr. Juan Jose Mcleod Physician: EDVIN SYED M.D. Resident: Natali Flores?Kaylah Calle, Ph.D. Pathologist:? Bhargavi Gil M.D. PATHOLOGIC DIAGNOSIS: CONSULT SLIDES FROM [facility]; [place], [place]: A. MEDIASTINUM, MASS, BIOPSY ([id number]; 03/22/2017): ? 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 ?Immunohistochemistry performed at the outside institution and reviewed ?at [facility] demonstrates the following staining profile in lesional cells: ? Positive - AE1/AE3, p40, PAX8, CD117, CD5(multifocal), ?CK7(scattered cells), synaptophysin, chromogranin ? Negative - CK20, TTF-1, GATA3, CD34 ? The immunohistochemical profile supports the above diagnosis. ? Ki67 (MIB-1) proliferation index performed at the referring ?institution and reviewed at [facility] is focally up to ~30%. NOTE: While diffuse synaptophysin and chromogranin expression is unusual for conventional thymic carcinoma, the overall histomorphology and immunophenotype is most in keeping with THYMIC SQUAMOUS CARCINOMA.?The extent of PAX8 and CD117 staining would be unusual for Nut BREAST, LEFT, 9 O'CLOCK, 1 CM FROM NIPPLE, ULTRASOUND GUIDED CORE BIOPSY: -?Benign breast tissue with nodular fibrocystic changes including sclerosing adenosis and cyst formation.?See comment. Comment: In addition to sclerosing adenosis and cyst formation there are focal fibroadenomatoid changes. The ductal structures show retained expression of heavy chain myosin and P63, confirming their benign nature.?Joint Yarner slides of this case were reviewed at the intradepartmental consultation conference.?(Dr. Bond)/[facility] PET CT EYE TO THIGH?04/18/2017 2:03 PM Signs and Symptoms/Comments:? C7A.8-Other malignant neuroendocrine tumors (HCC)-ICD-10 D45-Wppsfdxut neoplasm of thymus (HCC)-ICD-10; thymic squamous cell ca, thymic neuroendocrine tumor, vertebral body lesions concerning for mets . Comparison: CT of the abdomen and pelvis from 03/23/2017, CT of the chest from 03/18/2017, ultrasound guided breast biopsy from 03/25/2017 Technique: Approximately 91 minutes following the IV injection of 15 mCi of N65-kfjqhbxikkojcgitrq, 3D TOF PET imaging was obtained from the head to the upper thighs with attenuation correction using a [employer] dedicated closed ring PET / CT system.?The blood glucose level prior to injection was 108 mg/dl.?The injection site was in the right antecubital fossa. Findings: Consistent with biopsy findings of malignancy, there is intense increased metabolic activity within the anterior mediastinal mass, biopsy-proven thymic neuroendocrine/small cell carcinoma, SUV max of 9. Additionally, the multiple areas of nodularity throughout the pleura as well as a pericardium demonstrate increased metabolic uptake each of which demonstrate SUV max of 4. There is low-level increased activity within a small to moderate left pleural effusion, likely consistent with a malignant pleural effusion. The concerning thoracolumbar spine lesions demonstrate no increased metabolic activity. The liver parenchyma demonstrates heterogeneous uptake and appearance on corresponding CT images. The liver is also enlarged. No focus of increased metabolic activity is identified. No mass appears to be present. A left breast mass measuring 3.0 cm (axial load is 154) demonstrates background levels of the bowel uptake, consistent with the biopsy-proven fibrocystic change. There is normal distribution of F-18 FDG through the neck and pelvis. Low-dose, low-resolution CT images were obtained for the purposes of attenuation correction and anatomic localization. Incidental findings are as follows. Head/neck: There is mild atherosclerotic calcification of the bilateral internal carotid arteries just beyond the carotid bifurcation. CHEST: As described above, pleural nodularity, a moderate left pleural effusion, and pericardial nodularity as well as an anterior mediastinal mass are redemonstrated. There is calcification of the aortic valve as well as atherosclerotic ossification of the coronary arteries. There is atelectasis adjacent to the pleural effusion. Abdomen/pelvis: Mild atherosclerotic ossification of the abdominal aorta is identified. A ventral abdominal hernia is present within the low midline with a 5.3 cm ventral wall defect. The hernia contains nonobstructed loops of bowel (axial 81). Additional ventral wall defects containing peritoneal fat but no obstructed bowel. The adjacent subcutaneous fat demonstrates fat stranding. There are multiple fibroids emanating from the uterus with varying degrees of calcification. MUSCULOSKELETAL: There are degenerative changes throughout the spine with no suspicious osseous lesions. Impression: 1. Increased metabolic activity within the anterior mediastinal mass as well as pericardial and pleural nodules, consistent with known malignant disease with metastatic spread. The low-level activity of the small to moderate left pleural effusion also likely reflects a component of malignancy. 2. Heterogeneous metabolic activity within the liver which demonstrates an enlarged and heterogeneous appearance may indicate an underlying disease. No discrete foci/mass/metastatic disease identified. 3. No increased metabolic activity within the concerning thoracolumbar spine lesions. 4. Additional incidental findings as described above. I have personally reviewed the images and the above interpretation and agree with the findings. ASSESSMENT/PLAN: Monica has a stage-IV thymic carcinoma with squamous differentiation (non-keratinizing). It may have some neuroendocrine features. The combination of carboplatin and taxol is in the NCCN guidelines in regards to first line therapy and I concurred that it would be reasonable to do this first. It certainly is intriguing to consider a checkpoint inhibitor in a patient that has a tumor that is 75% PD-L1 positive. I think that would be a very reasonable second line option. Finally, third line treatment with Sunitinib could be considered but response rates and side effect profile delegate that to consideration for resistant disease only. ONCBCN ONCOLOGY (AMB) 05/30/2017 Day, Cycle Day 1, Cycle 1 CARBOplatin (PARAPLATIN) IV 900 mg PACLitaxel (TAXOL) IV 200 mg/m2/dose = 480 mg pegfilgrastim (NEULASTA) SubQ 6 mg ONCBCN ONCOLOGY (AMB) 06/20/2017 Day, Cycle Day 1, Cycle 2 CARBOplatin (PARAPLATIN) IV 900 mg PACLitaxel (TAXOL) IV 200 mg/m2/dose = 480 mg pegfilgrastim (NEULASTA) SubQ 6 mg ONCBCN ONCOLOGY (AMB) 07/11/2017 Day, Cycle Day 1, Cycle 3 CARBOplatin (PARAPLATIN) IV 900 mg PACLitaxel (TAXOL) IV 200 mg/m2/dose = 480 mg pegfilgrastim (NEULASTA) SubQ 6 mg Laboratory today shows a white count of 5.0 hemoglobin 10.4 hematocrit 31.7 platelet count of 192 neutrophil count of 3.21. CMP shows normal electrolytes of potassium of 3.8 creatinine of 0.61 calcium of 9.4 ALP of 54 and albumin of 3.4 Assessment/plan: Monica is fine today for another cycle of chemotherapy with carboplatinum and paclitaxel. The Taxol dose is on the high side and it is not surprising that she is having some problems with achiness. There is a warning however on tramadol in regards to its addiction potential and use in patients that have had problems with that previously. In view of that I do not want to give her a prescription fortramadol. Fortunately it seems that the achiness is tolerable for her and is short-lived. She will continue to try the Claritin Tylenol and nonsteroidal anti-inflammatories and I have recommended to her not to take her 's tramadol. We will go ahead and set up a CT scan with contrast at the [facility] to see if she is having a response. She has been symptom-free from this tumor and in that regard with little to go on as far as were were at other than scanning. See her back in 3weeks time with lab. She will call if there is issues in the interim. documented in this encounter Plan of Treatment Upcoming Encounters Date Type Department Care Team (Late st Contact Info) Description 02/24/2024 9:00 AM EDT Office Visit Hematology/Oncology at [address] [phone] Shon Schneider MD [facility] [place] [address] Ciara Pitts APRN [address] [place] [address] [place] [address] 02/24/2024 9:30 AM EDT Infusion Hematology Oncology at [address] [phone] 03/02/2024 11:00 AM EDT Office Visit Hematology/Oncology at [address] [phone] Shon Schneider MD [facility] [place] [address] [place] [address] 03/02/2024 12:30 PM EDT Infusion Hematology Oncology at [address] [phone] 03/09/2024 10:00 AM EDT Office Visit Hematology/Oncology at [address] [phone] Shon Schneider MD [facility] [place] [address] [address] [place] [address] 03/09/2024 10:30 AM EDT Infusion Hematology Oncology at [address] [phone] documented as of this encounter Procedures Procedure Name Priority Date/Time Associated Diagnosis Comments LAB SCAN 08/01/2017 12:00 AM EST documented in this encounter Results * SCAN DOC: LAB (08/01/2017 12:00 AM EST) Narrative 08/01/2017 12:00 AM EST Ordered by an unspecified provider. 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 documented in this encounter Care Teams Cementer Hand Relationship Specialty Start Date End Date Gloria Red MD [address] [place] [address] [place] [phone] PCP - General Family Medicine 05/26/17 12/03/18 documented as of this encounter
--- OUTSIDE RECORDS SUMMARY | 2024-02-24 01:26 | XMS_ITS | Encounter Summary ---
Author Organization [facility] [place] [address] Care Team Providers Care Oil Rigger Name Role Phone Gloria Red MD Primary Care Provider [phone] Reason for Visit * Reason Comments Chemotherapy Cycle 4 day 1` * Treatment/Therapy Plan Authorization (Routine) - Closed Specialty Diagnoses / Procedures Referred By Franklyn t Referred To Contact Hematology and Oncology Diagnoses Thymic carcinoma Procedures TC PALONOSETRON HCL, 25MCG, INJECTION (ALOXI) TC FOSAPREPITANT, 1MG, INJECTION (EMEND) TC CARBOPLATIN, 50MG, INJECTION (PARAPLATIN) TC PACLITAXEL, 1MG, INJ TC PEGFILGRASTIM, 6MG, INJECTION Jerrod White MD [address] [place] [address] [facility] Hem Onc Office [address] [place] [phone] Referral ID Status Reason Start Date Expiration Date Visits Re quested Visits Authorized [id number] Closed 05/27/2017 08/26/2018 18 18 Encounter Details Date Type Department Care Team (Late st Contact Info) Description 08/01/2017 9:00 AM EST Infusion Hematology Oncology at [address] [phone] Thymic carcinoma Social History Tobacco Use Types Packs/Day Years Used Date Smoking Tobacco: Never Smokeless Tobacco: Never Sex and Gender Information Value Date Recorded Sex Assigned at Not on file Gender Identity Not on file Sexual Orientation Not on file documented as of this encounter Progress Notes * Phuong Alcocer RN - 08/01/2017 9:00 AM EST INFUSION THERAPY ADMINISTRATION NOTES DIAGNOSIS: Thymic carcinoma CYCLE # 4, Day 1 REASON FOR VISIT: Carbo/Taxol infusion & Neulasta SUBJECTIVE Monica offers no complaints. OBJECTIVE LAB DATA: WNL, reviewed by Desiree Curran. IV ACCESS: Mediport Pre administration: Chemotherapy orders independently verified for drug name, route, and dosage per patient's height, weight and BSA by PHUONG ALCOCER RN & Josh Paul [facility]. REACTIONS (DESCRIPTION, TIME, INTERVENTION AND EFFECTIVENESS) none ASSESSMENT Monica was awake, alert and tolerated treatment well. PLAN Return to clinic as scheduled.. documented in this encounter Plan of Treatment Upcoming Encounters Date Type Department Care Team (Late st Contact Info) Description 02/24/2024 9:00 AM EDT Office Visit Hematology/Oncology at [address] [phone] Shon Schneider MD [facility] [place] [address] [address] HEMATOLOGY AND ONCOLOGY [place], [place] [address] 02/24/2024 9:30 AM EDT Infusion Hematology Oncology at [address] [phone] 03/02/2024 11:00 AM EDT Office Visit Hematology/Oncology at [address] [phone] Shon Schneider MD [facility] [place] [address] Ciara Pitts [address] HEMATOLOGY AND ONCOLOGY [place], [place] [address] 03/02/2024 12:30 PM EDT Infusion Hematology Oncology at [address] [phone] 03/09/2024 10:00 AM EDT Office Visit Hematology/Oncology at [address] [phone] Shon Schneider MD [facility] [place] [address] Ciara Pitts APRN [address] [place] [address] DR HEMATOLOGY AND ONCOLOGY [place], [place] [id number] 03/09/2024 10:30 AM EDT Infusion Hematology Oncology at [address] [phone] documented as of this encounter Visit Diagnoses [...] = 6), Intravenous, ONCE, 1 dose, On Tue08/01/17 at 1100, Administer over 30 Minutes, Hold Parameters: CARBOplatin, Call provider for serum creatinine less than (mg/dL): .2, Call provider for serum creatinine greater than (mg/dL): 2, External serum creatinine results used to calculate dose? Yes, Enter serum creatinine value (mg/dL): .5, Enter serum creatinine result date: 05/26/2017 New Bag 08/01/2017 2:51 PM EST 900 mg 680 mL/hr dexamethasone (DECADRON) injection 10 mg 10 mg, Intravenous, ONCE, 1 dose, On Tue08/01/17 at 0945, Administer 30 minutes prior to PACLitaxel Given 08/01/2017 10:31 AM EST 10 mg diphenhydrAMINE (BENADRYL) injection 25 mg 25 mg, Intravenous, ONCE, 1 dose, On Tue08/01/17 at 0945, Administer 30 minutes prior to PACLitaxel, Routine Given 08/01/2017 10:37 AM EST 25 mg famotidine (PEPCID) injection 20 mg 20 mg, Intravenous, ONCE, 1 dose, On Tue08/01/17 at 0945, Administer 30 minutes prior to PACLitaxel Given 08/01/2017 10:35 AM EST 20 mg fosaprepitant (EMEND) 150 mg in sodium chloride 0.9% 155 mL infusion 150 mg, Intravenous, at 310 mL/hr, Administer over 30 Minutes, ONCE, 1 dose, On Tue08/01/17 at 0945, Routine New Bag 08/01/2017 10:40 AM EST 150 mg 310 mL/hr heparin, porcine 100 unit/mL flush 500 Units 500 Units, Intravenous, ONCE PRN, Starting on Tue08/01/17 at 0928, Until Tue08/01/17 at 1846, Line Care, Refer to Intravenous (IV) Procedure: Accessing Implanted Vascular Access Devices (374) procedure and/or Intravenous (IV) Job Aid: Adult Flushing & Catheter Care (2985) job aid for additional information regarding guidelines and administration., Routine Given 08/01/2017 3:30 PM EST 500 Units PACLitaxel (TAXOL) 480 mg in sodium chloride 0.9% Non-PVC 580 mL chemo infusion 480 mg (200 mg/m2/dose ? 2.4 m2 Treatment Plan BSA from Recorded weight), Intravenous, ONCE, 1 dose, On Tue08/01/17 at 1100, Administer over 3 Hours, Warning Vesicant/Irritant Medication New Bag 08/01/2017 11:31 AM EST 480 mg 193.3 mL/hr palonosetron (ALOXI) injection 0.25 mg 0.25 mg, Intravenous, ONCE, 1 dose, On Tue08/01/17 at 0945, Administer over 30 seconds. Administer prior to chemotherapy, Routine Given 08/01/2017 10:29 AM EST 0.25 mg pegfilgrastim (NEULASTA) injection 6 mg 6 mg, Subcutaneous, ONCE, 1 dose, On Tue08/01/17 at 0945, Bring to room temperature 15-30 mins before administration. , Routine Given 08/01/2017 3:30 PM EST 6 mg sodium chloride 0.9 % flush 5-20 mL 5-20 mL, Intravenous, EVERY 1 MIN PRN, Starting on Tue08/01/17 at 0928, Until Tue08/01/17 at 1846, Line Care, Flush pertains to all indwelling lines. Flush per protocol found in the job aid using the link provided on this medication record. Refer to Intravenous (IV) Job Aid: Adult Flushing & Catheter Care (7543) job aid for additional information regarding guidelines and administration., Routine Given 08/01/2017 3:30 PM EST 20 mLs documented in this encounter Care Teams Oil Rigger Relationship Specialty Start Date End Date Gloria Red MD [address] [place] [address] [place] [address] PCP - General Family Medicine 05/26/17 12/03/18 documented as of this encounter
--- OUTSIDE RECORDS SUMMARY | 2024-02-24 01:26 | XMS_ITS | Encounter Summary ---
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 TC PALONOSETRON HCL, 25MCG, INJECTION (ALOXI) TC FOSAPREPITANT, 1MG, INJECTION (EMEND) TC CARBOPLATIN, 50MG, INJECTION (PARAPLATIN) TC PACLITAXEL, 1MG, INJ TC PEGFILGRASTIM, 6MG, INJECTION Jerrod White MD [address] [place] [address] [facility] Hem Onc Office [address] [place] [phone] Referral ID Status Reason Start Date Expiration Date Visits Re quested Visits Authorized [id number] Closed 05/27/2017 08/26/2018 18 18 Encounter Details Date Type Department Care Team (Late st Contact Info) Description 11/21/2017 8:30 AM EDT Infusion Hematology Oncology at [address] [phone] Thymic carcinoma Social History Tobacco Use Types Packs/Day Years Used Date Smoking Tobacco: Never Smokeless Tobacco: Never Sex and Gender Information Value Date Recorded Sex Assigned at Not on file Gender Identity Not on file Sexual Orientation Not on file documented as of this encounter Progress Notes * Eden Vieira RN - 11/21/2017 8:30 AM EDT INFUSION THERAPY ADMINISTRATION NOTES DIAGNOSIS: Thymic carcinoma CYCLE # 9, Day 1 REASON FOR VISIT: Carbo/Taxol infusion SUBJECTIVE Monica offers no complaints. OBJECTIVE LAB DATA: WNL for today's infusion. Mg 1.[address] White. IV ACCESS: Mediport Pre administration: Chemotherapy orders independently verified for drug name, route, and dosage per patient's height, weight and BSA by Serg Vieira RN & On-site pharmacist. REACTIONS (DESCRIPTION, TIME, INTERVENTION AND EFFECTIVENESS) none ASSESSMENT Monica was awake, alert and tolerated treatment well. PLAN Return to clinic per routine. documented in this encounter Plan of Treatment Upcoming Encounters Date Type Department Care Team (Late st Contact Info) Description 02/24/2024 9:00 AM EDT Office Visit Hematology/Oncology at [address] [phone] Shon Schneider MD [facility] [place] [address] HEMATOLOGY [place] [address] 02/24/2024 9:30 AM EDT Infusion Hematology Oncology at [address] [phone] 03/02/2024 11:00 AM EDT Office Visit Hematology/Oncology at [address] [phone] Shon Schneider MD [facility] [place] [address] Ciara Pitts [address] HEMATOLOGY AND ONCOLOGY [place], [place] [address] 03/02/2024 12:30 PM EDT Infusion Hematology Oncology at [address] [phone] 03/09/2024 10:00 AM EDT Office Visit Hematology/Oncology at [address] [phone] Shon Schneider MD [facility] [place] [address] Ciara Pitts, [address] HEMATOLOGY AND ONCOLOGY [place], [place] [id number] 03/09/2024 10:30 AM EDT Infusion Hematology Oncology at [address] [phone] documented as of this encounter Visit Diagnoses [...] = 6), Intravenous, ONCE, 1 dose, On Tue11/21/17 at 1000, Administer over 30 Minutes, Hold Parameters: CARBOplatin, Call provider for serum creatinine less than (mg/dL): .2, Call provider for serum creatinine greater than (mg/dL): 2, External serum creatinine results used to calculate dose? Yes, Enter serum creatinine value (mg/dL): .5, Enter serum creatinine result date: 05/26/2017 New Bag 11/21/2017 1:15 PM EDT 900 mg 680 mL/hr dexamethasone (DECADRON) injection 10 mg 10 mg, Intravenous, ONCE, 1 dose, On Tue11/21/17 at 0900, Administer 30 minutes prior to PACLitaxel Given 11/21/2017 9:06 AM EDT 10 mg diphenhydrAMINE (BENADRYL) injection 25 mg 25 mg, Intravenous, ONCE, 1 dose, On Tue11/21/17 at 0900, Administer 30 minutes prior to PACLitaxel, Routine Given 11/21/2017 9:11 AM EDT 25 mg famotidine (PEPCID) injection 20 mg 20 mg, Intravenous, ONCE, 1 dose, On Tue11/21/17 at 0900, Administer 30 minutes prior to PACLitaxel Given 11/21/2017 9:14 AM EDT 20 mg fosaprepitant (EMEND) 150 mg in sodium chloride 0.9% 155 mL infusion 150 mg, Intravenous, at 310 mL/hr, Administer over 30 Minutes, ONCE, 1 dose, On Tue11/21/17 at 0900, Routine New Bag 11/21/2017 9:16 AM EDT 150 mg 310 mL/hr heparin, porcine 100 unit/mL flush 500 Units 500 Units, Intravenous, ONCE PRN, Starting on Tue11/21/17 at 1016, Until Tue11/21/17 at 1710, Line Care, Refer to Intravenous (IV) Procedure: Accessing Implanted Vascular Access Devices (147) procedure and/or Intravenous (IV) Job Aid: Adult Flushing & Catheter Care (8924) job aid for additional information regarding guidelines and administration., Routine Given 11/21/2017 1:45 PM EDT 500 Units magnesium sulfate 1g in dextrose 5% 100mL 1 g, Intravenous, ONCE, 1 dose, On Tue11/21/17 at 0900, Administer over 60 Minutes New Bag 11/21/2017 9:55 AM EDT 1 g 100 mL/hr PACLitaxel (TAXOL) 480 mg in dextrose 5% Non-PVC 580 mL chemo infusion 480 mg (200 mg/m2/dose ? 2.4 m2 Treatment Plan BSA from Recorded weight), Intravenous, ONCE, 1 dose, On Tue11/21/17 at 1000, Administer over 3 Hours, Warning Vesicant/Irritant Medication New Bag 11/21/2017 9:59 AM EDT 480 mg 193 mL/hr palonosetron (ALOXI) injection 0.25 mg 0.25 mg, Intravenous, ONCE, 1 dose, On Tue11/21/17 at 0900, Administer over 30 seconds. Administer prior to chemotherapy, Routine Given 11/21/2017 9:15 AM EDT 0.25 mg pegfilgrastim (NEULASTA) injection 6 mg 6 mg, Subcutaneous, ONCE, 1 dose, On Tue11/21/17 at 0900, Bring to room temperature 15-30 mins before administration. , Routine Given 11/21/2017 1:16 PM EDT 6 mg Right Arm sodium chloride 0.9 % flush 5-20 mL 5-20 mL, Intravenous, EVERY 1 MIN PRN, Starting on Tue11/21/17 at 1016, Until Tue11/21/17 at 1710, Line Care, Flush pertains to all indwelling lines. Flush per protocol found in the job aid using the link provided on this medication record. Refer to Intravenous (IV) Job Aid: Adult Flushing & Catheter Care (0580) job aid for additional information regarding guidelines and administration., Routine Given 11/21/2017 1:45 PM EDT 20 mLs documented in this encounter Care Teams Wild Life Manager Relationship Specialty Start Date End Date Gloria Red MD [address] [place] [address] [place] [address] PCP - General Family Medicine 05/26/17 12/03/18 documented as of this encounter
--- OUTSIDE RECORDS SUMMARY | 2024-02-24 01:26 | XMS_ITS | Encounter Summary ---
Author Organization [facility] [place] [address] Care Team Providers Care Employee Services Manager Name Role Phone Gloria Red MD Primary Care Provider [phone] Reason for Visit * Reason Comments Chemotherapy Cycle 15 Day 1 Carbo platin, Taxol, Magnesium * Treatment/Therapy Plan Authorization (Routine) - Closed Specialty Diagnoses / Procedures Referred By Franklyn t Referred To Contact Hematology and Oncology Diagnoses Thymic carcinoma Procedures TC PALONOSETRON HCL, 25MCG, INJECTION (ALOXI) TC FOSAPREPITANT, 1MG, INJECTION (EMEND) TC CARBOPLATIN, 50MG, INJECTION (PARAPLATIN) TC PACLITAXEL, 1MG, INJ TC PEGFILGRASTIM, 6MG, INJECTION Jerrod White MD [address] [place] [address] [facility] Hem Onc Office [address] [place] [phone] Referral ID Status Reason Start Date Expiration Date Visits Re quested Visits Authorized [id number] Closed 05/27/2017 08/26/2018 18 18 Encounter Details Date Type Department Care Team ([facility] st Contact Info) Description 04/25/2018 9:30 AM EST Infusion Hematology Oncology at [address] [phone] Thymic carcinoma Social History Tobacco Use Types Packs/Day Years Used Date Smoking Tobacco: Never Smokeless Tobacco: Never Sex and Gender Information Value Date Recorded Sex Assigned at Not on file Gender Identity Not on file Sexual Orientation Not on file documented as of this encounter Last Filed Vital Signs Vital Sign Reading Time Taken Comments Blood Pressure 133/88 04/25/2018 9:19 AM EST Pulse 83 04/25/2018 9:19 AM EST Temperature 36.7 ??C (98.1 ??F) 04/25/2018 9 :19 AM EST Respiratory Rate 18 04/25/2018 9:19 AM EST Oxygen Saturation 99% 04/25/2018 9:1 9 AM EST Inhaled Oxygen Concentration - - Weight 123.7 kg (272 lb 12. 8 oz) 04/25/2018 9:19 AM EST Height 176.5 cm (5' 9.49) 04/25/2018 9 :19 AM EST copied forward Body Mass Index 39.72 04/25/2018 9:19 AM EST documented in this encounter Progress Notes * Eden Vieira RN - 04/25/2018 9:30 AM EST INFUSION THERAPY ADMINISTRATION NOTES DIAGNOSIS: Thymic cancer CYCLE #15, Day 1 REASON FOR VISIT: Carbo Taxol [...] AM EDT Office Visit Hematology/Oncology at [address] [phone] Shon Schneider MD [facility] [place] [address] Ciara Pitts APRN [address] [place] [address] DR HEMATOLOGY [place] [address] 02/24/2024 9:30 AM EDT Infusion Hematology Oncology at [address] [phone] 03/02/2024 11:00 AM EDT Office Visit Hematology/Oncology at [address] [phone] Shon Schneider MD [facility] [place] [address] HEMATOLOGY AND ONCOLOGY [place], [place] [address] 03/02/2024 12:30 PM EDT Infusion Hematology Oncology at [address] [phone] 03/09/2024 10:00 AM EDT Office Visit Hematology/Oncology at [address] [phone] Shon Schneider MD [facility] [place] [address] [address] HEMATOLOGY [place] [address] 03/09/2024 10:30 AM EDT Infusion Hematology Oncology at [address] [phone] documented as of this encounter Visit Diagnoses Diagnosis 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 documented in this encounter Administered Medications Inactive Administered Medications - up to 3 most recent administrations Medication Order MAR Action Action Date Dose Rate Site aprepitant (CINVANTI) injection Emul 130 mg 130 mg, Intravenous, Administer over 2 Minutes, ONCE, 1 dose, On Tue04/25/18 at 1000, Alternative administration of IV push over 2 minutes is a recommendation from the c wpf developer., Routine Given 04/25/2018 10:21 AM EST 130 mg CARBOplatin (PARAPLATIN) 900 mg in dextrose 5% 340 mL chemo infusion 900 mg (Target AUC = 6), Intravenous, ONCE, 1 dose, On Tue04/25/18 at 1100, Administer over 30 Minutes, Hold Parameters: CARBOplatin, Call provider for serum creatinine less than (mg/dL): .2, Call provider for serum creatinine greater than (mg/dL): 2, External serum creatinine results used to calculate dose? Yes, Enter serum creatinine value (mg/dL): .6, Enter serum creatinine result date: 05/26/2017 New Bag 04/25/2018 2:32 PM EST 900 mg 680 mL/hr dexamethasone (DECADRON) injection 10 mg 10 mg, Intravenous, ONCE, 1 dose, On Tue04/25/18 at 1000, Administer 30 minutes prior to PACLitaxel Given 04/25/2018 10:21 AM EST 10 mg diphenhydrAMINE (BENADRYL) capsule 25 mg 25 mg, Oral, ONCE, 1 dose, On Tue04/25/18 at 1045, Administer 30 minutes prior to PACLitaxel, Routine Given 04/25/2018 10:34 AM EST 25 mg famotidine (PEPCID) injection 20 mg 20 mg, Intravenous, ONCE, 1 dose, On Tue04/25/18 at 1000, Administer 30 minutes prior to PACLitaxel Given 04/25/2018 10:27 AM EST 20 mg heparin, porcine 100 unit/mL flush 500 Units 500 Units, Intravenous, ONCE PRN, Starting on Tue04/25/18 at 0943, Until Tue04/25/18 at 1714, Line Care, Refer to Intravenous (IV) Procedure: Accessing Implanted Vascular Access Devices (824) procedure and/or Intravenous (IV) Job Aid: Adult Flushing & Catheter Care (4983) job aid for additional information regarding guidelines and administration., Routine Given 04/25/2018 3:13 PM EST 500 Units magnesium sulfate 1g in dextrose 5% 100mL 1 g, Intravenous, EVERY HOUR, 2 doses, First dose on Tue04/25/18 at 1015, Last dose on Tue04/25/18 at 1100, Administer over 60 Minutes New Bag 04/25/2018 11:26 AM EST 1 g 100 mL/hr New Bag 04/25/2018 10:31 AM EST 1 g 100 mL/hr PACLitaxel (TAXOL) 496 mg in dextrose 5% Non-PVC 582.6667 mL chemo infusion 496 mg (200 mg/m2/dose ? 2.48 m2 Treatment Plan BSA from Recorded weight), Intravenous, ONCE, 1 dose, On Tue04/25/18 at 1100, Administer over 3 Hours, Warning Vesicant/Irritant Medication New Bag 04/25/2018 11:10 AM EST 496 mg 194.2 mL/hr palonosetron (ALOXI) injection 0.25 mg 0.25 mg, Intravenous, ONCE, 1 dose, On Tue04/25/18 at 1000, Administer over 30 seconds. Administer prior to chemotherapy, Routine Given 04/25/2018 10:28 AM EST 0.25 mg pegfilgrastim (NEULASTA) injection 6 mg 6 mg, Subcutaneous, ONCE, 1 dose, On Tue04/25/18 at 1100, Bring to room temperature 15-30 mins before administration. , Routine, This agent is restricted to outpatient use. Is this drug being given as an outpatient? Yes Given 04/25/2018 2:33 PM EST 6 mg Right Arm sodium chloride 0.9 % flush 5-20 mL 5-20 mL, Intravenous, EVERY 1 MIN PRN, Starting on Tue04/25/18 at 0943, Until Tue04/25/18 at 1714, Line Care, Flush pertains to all indwelling lines. Flush per protocol found in the job aid using the link provided on this medication record. Refer to Intravenous (IV) Job Aid: Adult Flushing & Catheter Care (8097) job aid for additional information regarding guidelines and administration., Routine Given 04/25/2018 3:13 PM EST 20 mLs documented in this encounter Care Teams Employee Services Manager Relationship Specialty Start Date End Date Gloria Red MD [address] [place] [address] [place] [phone] PCP - General Family Medicine 05/26/17 12/03/18 documented as of this encounter
--- OUTSIDE RECORDS SUMMARY | 2024-02-24 01:26 | XMS_ITS | Encounter Summary ---
Author Organization [facility] [place] [address] Care Team Providers Care Engineer Station Mainline Name Role Phone Gloria Red MD Primary Care Provider [phone] Encounter Details Date Type Department Care Team (Late Contact Info) Description 04/25/2018 Orders Only [place]ology [place] [phone] Shon Schneider MD [facility] [place] [address] Social History Tobacco Use Types Packs/Day Years [...] AM EDT Office Visit Hematology/Oncology at [address] [phone] Shon Schneider MD [facility] [place] [address] Ciara Pitts APRN [address] [place] [address] [place] [address] 02/24/2024 9:30 AM EDT Infusion Hematology Oncology at [address] [phone] 03/02/2024 11:00 AM EDT Office Visit Hematology/Oncology at [address] [phone] Shon Schneider MD [facility] [place] [address] [address] [place] [address] 03/02/2024 12:30 PM EDT Infusion Hematology Oncology at [address] [phone] 03/09/2024 10:00 AM EDT Office Visit Hematology/Oncology at [address] [phone] Shon Schneider MD [facility] [place] [address] [place] [address] 03/09/2024 10:30 AM EDT Infusion Hematology Oncology at [address] [phone] documented as of this encounter Visit Diagnoses Not on filedocumented in this encounter Care Teams Engineer Station Mainline Relationship Specialty Start Date End Date Gloria Red MD [address] [place] [address] [place] [phone] PCP - General Family Medicine 05/26/17 12/03/18 documented as of this encounter
--- OUTSIDE RECORDS SUMMARY | 2024-02-24 01:26 | XMS_ITS | Encounter Summary ---
Author Organization [facility] Address [facility] [place] [address] Care Team Providers Care Shade Bander Name Role Phone Gloria Red MD Primary Care Provider [phone] Reason for Visit * Reason Onset Date Comments Other 04/14/2018 Faxed standing T ransfusion orders and one time Mg order to [facility] Encounter Details Date Type Department Care Team (Late st Contact Info) Description 04/14/2018 Telephone Hematology/Oncology at [address] [phone] Lashawn Skelton RN Other (Faxed standing Transfusion orders and one time Mg order to [facility]) Social History Tobacco Use Types Packs/Day Years Used Date Smoking Tobacco: Never Smokeless Tobacco: Never Sex and Gender Information Value Date Recorded Sex Assigned at Not on file Gender Identity Not on file Sexual Orientation Not on file documented as of this encounter Miscellaneous Notes * Telephone Encounter - Lashawn Skelton RN - 04/14/2018 3:57 PM EDT Faxed standing transfusion orders to [facility] and one time order for 2g of Magnesium over 2 hours, faxesconfirmed. Called and spoke to Liz renee [facility] infusion and she will arrange for Monica to come in tomorrow, 04/15, for 1 unit of PRBC's and 2g IV Mag. documented in this encounter Plan of Treatment Upcoming Encounters Date Type Department Care Team (Late st Contact Info) Description 02/24/2024 9:00 AM EDT Office Visit Hematology/Oncology at [address] [phone] Shon Schneider MD [facility] [place] [address] [address] HEMATOLOGY AND ONCOLOGY [place], [place] [id number] 02/24/2024 9:30 AM EDT Infusion Hematology Oncology at [address] [phone] 03/02/2024 11:00 AM EDT Office Visit Hematology/Oncology at [address] [phone] Shon Schneider MD [facility] [place] [address] [address] HEMATOLOGY AND ONCOLOGY [place], [place] [id number] 03/02/2024 12:30 PM EDT Infusion Hematology Oncology at [address] [phone] 03/09/2024 10:00 AM EDT Office Visit Hematology/Oncology at [address] [phone] Shon Schneider MD [facility] [place] [address] Ciara Pitts [address] HEMATOLOGY AND ONCOLOGY [place], [place] [address] 03/09/2024 10:30 AM EDT Infusion Hematology Oncology at [address] [phone] documented as of this encounter Visit Diagnoses Not on filedocumented in this encounter Care Teams Shade Bander Relationship Specialty Start Date End Date Gloria eRd MD [address] [place] [address] [place] [phone] PCP - General Family Medicine 05/26/17 12/03/18 documented as of this encounter
--- OUTSIDE RECORDS SUMMARY | 2024-02-24 01:26 | XMS_ITS | Encounter Summary ---
Author Organization [facility] [place] [address] Care Team Providers Care Cloth Doffer Name Role Phone Gloria Red MD Primary Care Provider Encounter Details Date Type Department Care Team (Late st Contact Info) Description 03/28/2018 Telephone Hematology Oncology at [address] [phone] Phuong Marrero RN Social History Tobacco Use Types Packs/Day Years Used Date Smoking Tobacco: Never Smokeless Tobacco: Never Sex and Gender Information Value Date Recorded Sex Assigned at Not on file Gender Identity Not on file Sexual Orientation Not on file documented as of this encounter Miscellaneous Notes * Telephone Encounter - Phuong Marrero RN - 03/28/2018 3:13 PM EDT Patient calls today with concerns that she did not see a provider prior to her chemotherapy yesterday. After discussion, her chemo had been held x1 week and chemo rescheduled for yesterday. Monica's concern was that she is tired and wiped out and her HGB is 7.9-she usually gets transfused less than 8. Call placed to her PCP in [facility]-Dr. Red. She is willing to sign the orders. Orders for standing transfusions faxed to her office and they will forward them to Liz at the infusion room at [facility]. Liz is aware of plan and has set Monica up for transfusion tomorrow. Monica is set to see Dr. Schneider on the Tuesday prior to chemotherapy on Tuesday. documented in this encounter Plan of Treatment Upcoming Encounters Date Type Department Care Team (Late st Contact Info) Description 02/24/2024 9:00 AM EDT Office Visit Hematology/Oncology at [address] [phone] Shon Schneider MD [facility] [address] [address] HEMATOLOGY AND ONCOLOGY [place], [place] [address] 02/24/2024 9:30 AM EDT Infusion Hematology Oncology at [address] [phone] 03/02/2024 11:00 AM EDT Office Visit Hematology/Oncology at [address] [phone] Shon Schneider MD [facility] [place] [address] [address] HEMATOLOGY [place] [address] 03/02/2024 12:30 PM EDT Infusion Hematology Oncology at [address] [phone] 03/09/2024 10:00 AM EDT Office Visit Hematology/Oncology at [address] [phone] Shon Schneider MD [facility] [place] [address] [address]s [address] HEMATOLOGY [place] [address] 03/09/2024 10:30 AM EDT Infusion Hematology Oncology at [address] [phone] documented as of this encounter Visit Diagnoses Not on filedocumented in this encounter Care Teams Cloth Doffer Relationship Specialty Start Date End Date Gloria Red MD [address] [place] [address] [place] [phone] PCP - General Family Medicine 05/26/17 12/03/18 documented as of this encounter
--- OUTSIDE RECORDS SUMMARY | 2024-02-24 01:26 | XMS_ITS | Encounter Summary ---
Author Organization [facility] [place] [address] Care Team Providers Care Intel Analyst Name Role Phone Gloria Red MD Primary Care Provider Reason for Visit * Reason Comments Chemotherapy Cycle 10 Day 1 * Treatment/Therapy Plan Authorization (Routine) - Closed Specialty Diagnoses / Procedures Referred By Franklyn del rio Referred To Contact Hematology and Oncology Diagnoses Thymic carcinoma Procedures TC PALONOSETRON HCL, 25MCG, INJECTION (ALOXI) TC FOSAPREPITANT, 1MG, INJECTION (EMEND) TC CARBOPLATIN, 50MG, INJECTION (PARAPLATIN) TC PACLITAXEL, 1MG, INJ TC PEGFILGRASTIM, 6MG, INJECTION Jerrod White MD [address] [place] [address] [facility] Hem Onc Office [address] [place] [phone] Referral ID Status Reason Start Date Expiration Date Visits Re quested Visits Authorized [id number] Closed 05/27/2017 08/26/2018 18 18 Encounter Details Date Type Department Care Team (Late st Contact Info) Description 12/12/2017 8:30 AM EDT Infusion Hematology Oncology at [address] [phone] Thymic carcinoma Social History Tobacco Use Types Packs/Day Years Used Date Smoking Tobacco: Never Smokeless Tobacco: Never Sex and Gender Information Value Date Recorded Sex Assigned at Not on file Gender Identity Not on file Sexual Orientation Not on file documented as of this encounter Progress Notes * Phuong Marrero RN - 12/12/2017 8:30 AM EDT INFUSION THERAPY ADMINISTRATION NOTES DIAGNOSIS: Thymic carcinoma CYCLE # 9, Day 1 REASON FOR VISIT: Carbo/Taxol/Avastin infusion SUBJECTIVE Monica offers no complaints. OBJECTIVE LAB DATA: WNL for today's infusion. IV ACCESS: Mediport Pre administration: Chemotherapy orders [...] AM EDT Office Visit Hematology/Oncology at [address] [phone] Shon Schneider MD [facility] [place] [address] [address] [place] [address] 02/24/2024 9:30 AM EDT Infusion Hematology Oncology at [address] [phone] 03/02/2024 11:00 AM EDT Office Visit Hematology/Oncology at [address] [phone] Shon Schneider MD [facility] [place] [address] [address] HEMATOLOGY AND ONCOLOGY [place], [place] [phone] 03/02/2024 12:30 PM EDT Infusion Hematology Oncology at [address] [phone] 03/09/2024 10:00 AM EDT Office Visit Hematology/Oncology at [address] [phone] Shon Schneider MD [facility] [place] [address] Ciara Pitts APRN [address] [place] [address] DR HEMATOLOGY AND ONCOLOGY [place], [place] [id number] 03/09/2024 10:30 AM EDT Infusion Hematology Oncology at [address] [phone] documented as of this encounter Visit Diagnoses [...] = 6), Intravenous, ONCE, 1 dose, On Tue12/12/17 at 1030, Administer over 30 Minutes, Hold Parameters: CARBOplatin, Call provider for serum creatinine less than (mg/dL): .2, Call provider for serum creatinine greater than (mg/dL): 2, External serum creatinine results used to calculate dose? Yes, Enter serum creatinine value (mg/dL): .5, Enter serum creatinine result date: 05/26/2017 New Bag 12/12/2017 2:39 PM EDT 900 mg 680 mL/hr dexamethasone (DECADRON) injection 10 mg 10 mg, Intravenous, ONCE, 1 dose, On Tue12/12/17 at 0930, Administer 30 minutes prior to PACLitaxel Given 12/12/2017 9:48 AM EDT 10 mg diphenhydrAMINE (BENADRYL) injection 25 mg 25 mg, Intravenous, ONCE, 1 dose, On 7/2/18 at 0930, Administer 30 minutes prior to PACLitaxel, Routine Given 12/12/2017 9:56 AM EDT 25 mg famotidine (PEPCID) injection 20 mg 20 mg, Intravenous, ONCE, 1 dose, On Tue12/12/17 at 0930, Administer 30 minutes prior to PACLitaxel Given 12/12/2017 9:53 AM EDT 20 mg fosaprepitant (EMEND) 150 mg in sodium chloride 0.9% 155 mL infusion 150 mg, Intravenous, at 310 mL/hr, Administer over 30 Minutes, ONCE, 1 dose, On Tue12/12/17 at 0930, Routine New Bag 12/12/2017 10:04 AM EDT 150 mg 310 mL/hr heparin, porcine 100 unit/mL flush 500 Units 500 Units, Intravenous, ONCE PRN, Starting on Tue12/12/17 at 0903, Until Tue12/12/17 at 1739, Line Care, Refer to Intravenous (IV) Procedure: Accessing Implanted Vascular Access Devices (654) procedure and/or Intravenous (IV) Job Aid: Adult Flushing & Catheter Care (4173) job aid for additional information regarding guidelines and administration., Routine Given 12/12/2017 3:25 PM EDT 500 Units Right Arm magnesium sulfate 1g in dextrose 5% 100mL 1 g, Intravenous, ONCE, 1 dose, On Tue12/12/17 at 1000, Administer over 60 Minutes New Bag 12/12/2017 1:41 PM EDT 1 g 100 mL/hr PACLitaxel (TAXOL) 480 mg in dextrose 5% Non-PVC 580 mL chemo infusion 480 mg (200 mg/m2/dose ? 2.4 m2 Treatment Plan BSA from Recorded weight), Intravenous, ONCE, 1 dose, On Tue12/12/17 at 1030, Administer over 3 Hours, Warning Vesicant/Irritant Medication New Bag 12/12/2017 11:04 AM EDT 480 mg 193 mL/hr palonosetron (ALOXI) injection 0.25 mg 0.25 mg, Intravenous, ONCE, 1 dose, On Tue12/12/17 at 0930, Administer over 30 seconds. Administer prior to chemotherapy, Routine Given 12/12/2017 9:46 AM EDT 0.25 mg pegfilgrastim (NEULASTA) injection 6 mg 6 mg, Subcutaneous, ONCE, 1 dose, On Tue12/12/17 at 0930, Bring to room temperature 15-30 mins before administration. , Routine Given 12/12/2017 3:25 PM EDT 6 mg sodium chloride 0.9 % flush 5-20 mL 5-20 mL, Intravenous, EVERY 1 MIN PRN, Starting on Tue12/12/17 at 0903, Until Tue12/12/17 at 1739, Line Care, Flush pertains to all indwelling lines. Flush per protocol found in the job aid using the link provided on this medication record. Refer to Intravenous (IV) Job Aid: Adult Flushing & Catheter Care (3458) job aid for additional information regarding guidelines and administration., Routine Given 12/12/2017 3:25 PM EDT 20 mLs documented in this encounter Care Teams Intel Analyst Relationship Specialty Start Date End Date Gloria Red MD [address] [place] [address] [place] [address] PCP - General Family Medicine 05/26/17 12/03/18 documented as of this encounter
--- OUTSIDE RECORDS SUMMARY | 2024-02-24 01:26 | XMS_ITS | Encounter Summary ---
Author Organization [facility] [place] [address] Care Team Providers Care Mixing Machine Tender Cork Gasket Name Role Phone Gloria Red MD Primary Care Provider [phone] Reason for Visit * Reason Comments Chemotherapy Carbo/Taxol, cycle 1 1, Day 1 * Treatment/Therapy Plan Authorization (Routine) - Closed Specialty Diagnoses / Procedures Referred By Franklyn t Referred To Contact Hematology and Oncology Diagnoses Thymic carcinoma Procedures TC PALONOSETRON HCL, 25MCG, INJECTION (ALOXI) TC FOSAPREPITANT, 1MG, INJECTION (EMEND) TC CARBOPLATIN, 50MG, INJECTION (PARAPLATIN) TC PACLITAXEL, 1MG, INJ TC PEGFILGRASTIM, 6MG, INJECTION Jerrod White MD [address] [place] [address] [facility] Hem Onc Office [address] [place] [phone] Referral ID Status Reason Start Date Expiration Date Visits Re quested Visits Authorized [id number] Closed 05/27/2017 08/26/2018 18 18 Encounter Details Date Type Department Care Team ([facility] st Contact Info) Description 01/16/2018 9:00 AM EDT Infusion Hematology Oncology at [address] [phone] Thymic carcinoma Social History Tobacco Use Types Packs/Day Years Used Date Smoking Tobacco: Never Smokeless Tobacco: Never Sex and Gender Information Value Date Recorded Sex Assigned at Not on file Gender Identity Not on file Sexual Orientation Not on file documented as of this encounter Progress Notes * Marguerite Calvo RN - 01/16/2018 9:00 AM EDT INFUSION THERAPY ADMINISTRATION NOTES DIAGNOSIS: Thymic carcinoma CYCLE # 11, Day 1 REASON FOR VISIT: Carbo/Taxol infusion SUBJECTIVE Monica offers no complaints. OBJECTIVE LAB DATA: WNL for today's infusion. Seen by Dr. White & cleared for treatment. IV ACCESS: Mediport Pre administration: [...] AM EDT Office Visit Hematology/Oncology at [address] [phone] Shon Schneider MD [facility] [place] [address] [address] [place] [address] 02/24/2024 9:30 AM EDT Infusion Hematology Oncology at [address] [phone] 03/02/2024 11:00 AM EDT Office Visit Hematology/Oncology at [address] [phone] Shon Schneider MD [facility] [place] [address] Ciara Pitts [address] HEMATOLOGY AND ONCOLOGY [place], [place] [id number] 03/02/2024 12:30 PM EDT Infusion Hematology Oncology at [address] [phone] 03/09/2024 10:00 AM EDT Office Visit Hematology/Oncology at [address] [phone] Sohn Schneider MD [facility] 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 documented in this encounter Administered Medications Inactive Administered Medications - up to 3 most recent administrations Medication Order MAR Action Action Date Dose Rate Site aprepitant (CINVANTI) injection Emul 130 mg 130 mg, Intravenous, Administer over 2 Minutes, ONCE, 1 dose, On Tue01/16/18 at 0930, Alternative administration of IV push over 2 minutes is a recommendation from the oil field equipment mechanic., Routine Given 01/16/2018 9:47 AM EDT 130 mg CARBOplatin (PARAPLATIN) 900 mg in dextrose 5% 340 mL chemo infusion 900 mg (Target AUC = 6), Intravenous, ONCE, 1 dose, On Tue01/16/18 at 1030, Administer over 30 Minutes, Hold Parameters: CARBOplatin, Call provider for serum creatinine less than (mg/dL): .2, Call provider for serum creatinine greater than (mg/dL): 2, External serum creatinine results used to calculate dose? Yes, Enter serum creatinine value (mg/dL): .5, Enter serum creatinine result date: 05/26/2017 New Bag 01/16/2018 2:22 PM EDT 900 mg 680 mL/hr dexamethasone (DECADRON) injection 10 mg 10 mg, Intravenous, ONCE, 1 dose, On Tue01/16/18 at 0930, Administer 30 minutes prior to PACLitaxel Given 01/16/2018 9:38 AM EDT 10 mg diphenhydrAMINE (BENADRYL) injection 25 mg 25 mg, Intravenous, ONCE, 1 dose, On Tue01/16/18 at 0930, Administer 30 minutes prior to PACLitaxel, Routine Given 01/16/2018 9:51 AM EDT 25 mg famotidine (PEPCID) injection 20 mg 20 mg, Intravenous, ONCE, 1 dose, On Tue01/16/18 at 0930, Administer 30 minutes prior to PACLitaxel Given 01/16/2018 9:43 AM EDT 20 mg heparin, porcine 100 unit/mL flush 500 Units 500 Units, Intravenous, ONCE PRN, Starting on Tue01/16/18 at 0911, Until Tue01/16/18 at 1714, Line Care, Refer to Intravenous (IV) Procedure: Accessing Implanted Vascular Access Devices (932) procedure and/or Intravenous (IV) Job Aid: Adult Flushing & Catheter Care (3862) job aid for additional information regarding guidelines and administration., Routine Given 01/16/2018 3:00 PM EDT 500 Units PACLitaxel (TAXOL) 480 mg in dextrose 5% Non-PVC 580 mL chemo infusion 480 mg (200 mg/m2/dose ? 2.4 m2 Treatment Plan BSA from Recorded weight), Intravenous, ONCE, 1 dose, On Tue01/16/18 at 1030, Administer over 3 Hours, Warning Vesicant/Irritant Medication New Bag 01/16/2018 11:06 AM EDT 480 mg 193.3 mL/hr palonosetron (ALOXI) injection 0.25 mg 0.25 mg, Intravenous, ONCE, 1 dose, On Tue01/16/18 at 0930, Administer over 30 seconds. Administer prior to chemotherapy, Routine Given 01/16/2018 9:37 AM EDT 0.25 mg pegfilgrastim (NEULASTA) injection 6 mg 6 mg, Subcutaneous, ONCE, 1 dose, On Tue01/16/18 at 0930, Bring to room temperature 15-30 mins before administration. , Routine Given 01/16/2018 2:24 PM EDT 6 mg Right Arm sodium chloride 0.9 % flush 5-20 mL 5-20 mL, Intravenous, EVERY 1 MIN PRN, Starting on Tue01/16/18 at 0911, Until Tue01/16/18 at 1714, Line Care, Flush pertains to all indwelling lines. Flush per protocol found in the job aid using the link provided on this medication record. Refer to Intravenous (IV) Job Aid: Adult Flushing & Catheter Care (9843) job aid for additional information regarding guidelines and administration., Routine Given 01/16/2018 3:00 PM EDT 20 mLs documented in this encounter Care Teams Mixing Machine Tender Cork Gasket Relationship Specialty Start Date End Date Gloria Red MD [address] [place] [address] [place] [phone] PCP - General Family Medicine 05/26/17 12/03/18 documented as of this encounter
--- OUTSIDE RECORDS SUMMARY | 2024-02-24 01:26 | XMS_ITS | Encounter Summary ---
Author Organization [facility] [place] [address] Care Team Providers Care Head Of Commission Department Name Role Phone Gloria Red MD Primary Care Provider Encounter Details Date Type Department Care Team (Late st Contact Info) Description 03/17/2018 8:00 AM EDT Office Visit Hematology/Oncology at [address] [phone] Desire Curran, MIDDLE SCHOOL LIBRARIAN [address] [facility] [place] [address] Thymic carcinoma Social History Tobacco Use Types Packs/Day Years Used Date Smoking Tobacco: Never Smokeless Tobacco: Never Sex and Gender Information Value Date Recorded Sex Assigned at Not on file Gender Identity Not on file Sexual Orientation Not on file documented as of this encounter Last Filed Vital Signs Vital Sign Reading Time Taken Comments Blood Pressure 143/58 03/17/2018 7:52 AM EDT Pulse 95 03/17/2018 7:52 AM EDT Temperature 37 ??C (98.6 ??F) 03/17/2018 7:52 AM EDT Respiratory Rate 16 03/17/2018 7:52 AM EDT Oxygen Saturation 100% 03/17/2018 7:52 AM EDT Inhaled Oxygen Concentration - - Weight 125.2 kg (276 lb) 03/17/2018 7:52 AM EDT Height 176.5 cm (5' 9.49) 03/17/2018 7:52 AM ED T Body Mass Index 40.19 03/17/2018 7:52 AM EDT documented in this encounter Progress Notes * Desire Curran, MIDDLE SCHOOL LIBRARIAN - 03/17/2018 8:00 AM EDT Diagnosis: 1) 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 She has done quite well with her treatment so far. 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 She is quite pleased with feeling better overall although notes the tiredness is her main issue. She was transfused for the last time on and got 2 units of red cells for her chemotherapy- induced anemia. She initially presented with pleural effusions, shortness of breath, and bloating as presenting symptoms and she does not have anyof the symptoms today. Of note, her is having a knee replacement in 2 weeks. Her daughter plans on staying with them during his recovery. Past medical history and social history reviewed and unchanged. Past Medical History: Diagnosis Date ??? Atrial [...] file Social History Narrative Review of Systems Constitution: Positive for malaise/fatigue. Negative for weight loss. HENT: Negative. Respiratory: Negative. Skin: Negative. Musculoskeletal: Negative. Gastrointestinal: Negative. Genitourinary: Negative. Neurological: Positive for paresthesias. Psychiatric/Behavioral: The patient is nervous/anxious. BP 143/58 (Patient Position: Sitting) Pulse 95 Temp 37 ??C (98.6 ??F) (Oral) Resp 16 Ht 176.5 cm (5' 9.49) Wt 125.2 kg (276 lb) SpO2 100% BMI 40.19 kg/m2 Wt Readings from Last 3 Encounters: 03/17/18 125.2 kg (276 lb) 02/27/18 125.2 kg (276 lb) 02/06/18 122.5 kg (270 lb) Physical Exam Constitutional: She is oriented to person, place, and time. She appears well- developed and well-nourished. HENT: Head: Normocephalic. Eyes: Conjunctivae and EOM are normal. Pupils are equal, round, and reactive to light. No scleral icterus. Neck: Normal range of motion. Neck supple. Cardiovascular: Normal rate and regular rhythm. Pulmonary/Chest: Effort normal and breath sounds normal. Abdominal: Soft. She exhibits no distension and no mass. There is no tenderness. There is no guarding. Musculoskeletal: Normal range of motion. She exhibits no edema. Lymphadenopathy: She has no cervical adenopathy. She has no axillary adenopathy. Right: No supraclavicular adenopathy present. Left: No supraclavicular adenopathy present. Neurological: She is alert and oriented to person, place, and time. Skin: Skin is warm and dry. Psychiatric: She has a normal mood and affect. Her behavior is normal. Labs: 03/17/18 CBC: WBC 4.38 hemoglobin 6.1 platelets 67 CMP: Sodium 139 potassium 3.8 BUN 9 creatinine 0.67 glucose 119 calcium 8.9 magnesium 1.5 total bili 0.5 AST 13 ALT 17 alk phos 59 total protein 7.3 albumin 3.3 ONCBCN ONCOLOGY (AMB) 02/27/2018 Day, Cycle Day 1, Cycle 13 CARBOplatin (PARAPLATIN) IV 900 mg PACLitaxel (TAXOL) IV 200 mg/m2/dose = 480 mg pegfilgrastim (NEULASTA) SubQ 6 mg Assessment/plan: Kaley is tolerating her carboplatinum and Taxol exceptionally well. Transfusion was done 2wks ago for chemo-associated anemia however her body did not hold this and at this point today she needs another transfusion. We are setting this up at [facility] for today. Her platelets are low at 67 and although they may come up by Tuesday they would still be quite low in discussion with patient and her daughter she made the decision that she would hold off for a week. We will plan to treat her on Tuesday, March 27 and she will return to clinic to see Dr. Schneider on April 14. She will call in the meantime if there are any issues or problems. Desire Curran, MSN, CUSTOMER COMPLAINT CLERK, AOCN Hematology/Oncology Nurse Practitioner [place], [place] [phone] documented in this encounter Plan of Treatment Upcoming Encounters Date Type Department Care Team (Late st Contact Info) Description 02/24/2024 9:00 AM EDT Office Visit Hematology/Oncology at [address] [phone] Shon Schneider MD [facility] [place] [address] Ciara Pitts APRN [address] [place] [address] HEMATOLOGY AND ONCOLOGY [place], [place] [id number] 02/24/2024 9:30 AM EDT Infusion Hematology Oncology at [address] [phone] 03/02/2024 11:00 AM EDT Office Visit Hematology/Oncology at [address] [phone] Shon Schneider MD [facility] [place] [address] HEMATOLOGY AND ONCOLOGY [place], [place] [address] 03/02/2024 12:30 PM EDT Infusion Hematology Oncology at [address] [phone] 03/09/2024 10:00 AM EDT Office Visit Hematology/Oncology at [address] [phone] Shon Schneider MD [facility] [place] [address] HEMATOLOGY AND ONCOLOGY [place], [place] [phone] 03/09/2024 10:30 AM EDT Infusion Hematology Oncology at [address] [phone] documented as of this encounter Visit Diagnoses Diagnosis 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 documented in this encounter Care Teams Head Of Commission Department Relationship Specialty Start Date End Date Gloria Red MD [address] [place] [address] [place] [phone] PCP - General Family Medicine 05/26/17 12/03/18 documented as of this encounter
--- OUTSIDE RECORDS SUMMARY | 2024-02-24 01:26 | XMS_ITS | Encounter Summary ---
Author Organization [facility] [place] [address] Care Team Providers Care Show Host Or Hostess Name Role Phone Gloria Red MD Primary Care Provider Reason for Visit * Reason Comments Cancer Encounter Details Date Type Department Care Team (Late st Contact Info) Description 08/22/2017 8:00 AM EDT Office Visit Hematology/Oncology at [address] [phone] Jerrod White MD [address] [place] [address] Thymic carcinoma Social History Tobacco Use Types Packs/Day Years Used Date Smoking Tobacco: Never Smokeless Tobacco: Never Sex and Gender Information Value Date Recorded Sex Assigned at Not on file Gender Identity Not on file Sexual Orientation Not on file documented as of this encounter Last Filed Vital Signs Vital Sign Reading Time Taken Comments Blood Pressure 140/85 08/22/2017 8:09 AM EDT Pulse 85 08/22/2017 8:09 AM EDT Temperature 37.1 ??C (98.8 ??F) 08/22/2017 8:09 AM ED T Respiratory Rate 16 08/22/2017 8:09 AM EDT Oxygen Saturation 100% 08/22/2017 8:09 AM EDT Inhaled Oxygen Concentration - - Weight 117 kg (258 lb) 08/22/2017 8:09 AM EDT Height 176.5 cm (5' 9.49) 08/22/2017 8:09 AM ED T copied Body Mass Index 37.57 08/22/2017 8:09 AM EDT documented in this encounter Progress Notes * Jerrod White MD - 08/22/2017 8:00 AM EDT Diagnosis: 1) 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 Her original scanning was up there so it made sense to do the repeat scanning there. She notes the drive worked well and there is no problem with getting the scan there. She continues to tolerate the chemotherapy exceptionally well. She notes that since starting the chemotherapy her breathing has gone back to normal and she no longer feels short of breath at all. She also has no nausea or vomiting and energy levels have actually been better overall than they had been prior to chemotherapy. She is not having any neuropathy symptoms no numbness in her hands or feet and no othersymptoms no pain or discomfort. She has no cough. Review of systems is negative. Past medical history and social history reviewed and unchanged from when I saw her 3 weeks ago. Past Medical History: Diagnosis Date [...] upon request. Final classification is deferred to resection.?Senior Data Warehouse Developer slides of this case were reviewed at the intradepartmental consultation conference. Immunoperoxidase stains were performed on this case to further characterize the lesion. ANTIBODY(CLONE)(BLOCK):RESULT Ckit (CD117) (EP10, [employer]) (2): Positive CD5 (Rabbit Monoclonal, clone SP19, [employer]) (2): Positive PAX-8 (MRQ-50, [place]) (2): Positive P40 (BC28, [place]) (2): Positive Keratin AE1-AE3 (AE1-AE3, [employer]) (2): Positive Chromogranin (LK2H10, [place]) (2): Positive Synaptophysin (27G12, [employer]) (2): Positive MIB-1 (DAKO) (MIB-1, [employer]) (2): 5-15% nuclei positive CK7 (RN7, [employer]) (2): Negative CK20 (Ks20.8, [employer]) (2): Negative TTF-1 (8G7G3/1, [place]) (2): Negative GATA3 (L50-823, [place]) (2): Negative CD34 (QBEnd/10, [employer]) (2): Negative CASE: [id number] Second Opinion PATIENT: BRAYAN PIERRE [facility] Department of Pathology [address] [place] [address] [facility] License No.: [id number] Furnace Charging Machine Operator: Dr. Juan Jose Mcleod Physician: EDVIN SYED M.D. Resident: Natali Flores?Pee Calle., Ph.D. Pathologist:? Bhargavi Gil M.D. PATHOLOGIC DIAGNOSIS: CONSULT SLIDES FROM [facility]; [place], [place]: A. MEDIASTINUM, MASS, BIOPSY ([id number]; 03/22/2017): ? 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 ?Immunohistochemistry performed at the outside institution and reviewed ?at [facility] demonstrates the following staining profile in lesional cells: ? Positive - AE1/AE3, p40, PAX8, CD117, CD5(multifocal), ?CK7(scattered cells), synaptophysin, chromogranin ? Negative - CK20, TTF-1, GATA3, CD34 ? The immunohistochemical profile supports the above diagnosis. ? Ki67 (MIB-1) proliferation index performed at the referring ?institution and reviewed at [facility] [...] chain myosin and P63, confirming their benign nature.?Senior Data Warehouse Developer slides of this case were reviewed at the intradepartmental consultation conference.?(Dr. Bond)/[facility] PET CT EYE TO THIGH?04/18/2017 2:03 PM Signs and Symptoms/Comments:? C7A.8-Other malignant neuroendocrine tumors (HCC)-ICD-10 N09-Wfnxyatfi neoplasm of thymus (HCC)-ICD-10; thymic squamous cell ca, thymic neuroendocrine tumor, vertebral body lesions concerning for mets . Comparison: CT of the abdomen and pelvis from 03/23/2017, CT of the chest from 03/18/2017, ultrasound guided breast biopsy from 03/25/2017 Technique: Approximately 91 minutes following the IV injection of 15 mCi of [id number], 3D TOF PET imaging was obtained from the head to the upper thighs with attenuation correction using a [employer] [place]ore dedicated closed ring PET / [...] interpretation and agree with the findings. ASSESSMENT/PLAN: Brayan has a stage-IV thymic carcinoma with squamous [...] (NEULASTA) SubQ 6 mg ONCBCN ONCOLOGY (AMB) 08/01/2017 Day, Cycle Day 1, Cycle 4 CARBOplatin (PARAPLATIN) IV 900 mg PACLitaxel (TAXOL) IV 200 mg/m2/dose = 480 mg pegfilgrastim (NEULASTA) SubQ 6 mg Review of her CT scan shows that the multilobulated anterior mediastinal mass had decreased in sizefrom its initial size in March but less so from her PET scan a month later. The left costophreniclymph node had decreased in size and now is in the normal range at 7 mm there is no new or enlarging mediastinal lymph nodes. The large left pleural effusion is smaller and the pleural thickening areminimally changed. Their feelings were that there was overall mild changes compared to previous scans from prior to chemotherapy. Laboratory today shows a white count of 5.32 hemoglobin 10.3 hematocrit 31.1 and platelet count is 171 CMP shows normal electrolytes a calcium of 10 ALP of 49 creatinine of 0.6 and albumin of 3.6 which is improved. Assessment/plan: Clinically she has markedly improved and is breathing much better overall. In addition the chemotherapy which is palliative in nature is providing benefit. The complex mass within her chest does haveareas of calcification and one wonders how much of this is tumor and how much support tissue. Sinceshe is tolerating the current chemotherapy exceptionally well I would favor continuing on until counts or neuropathy or progressive disease changes the situation. That being said I think we can probably only get 3 or 4 more cycles and although occasionally we can go longer. I would favor rescanningher in another 3 months which is 4 more cycles. If we have to stop chemotherapy because of side effects prior to that I did scan her at that time. Considering her choice on the chemotherapy regiment my feelings would be to consider Pembrolizumab if we can get it approved by her insurance as second line treatment if she progresses after maximum response. I would reserve Adriamycin-containing regimen stent for third line treatment which was my preferred first-line approach. We will go ahead and see her back in 3 weeks with lab and normal going ahead with today's chemotherapy without change. 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 With the higher doses of carboplatinum and Taxol Neulasta will continue to be used to keep her counts up and so far they are doing their job in that regard. She will call if there is issues or problems in the interim. documented in this encounter Plan of Treatment Upcoming Encounters Date Type Department Care Team (Late st Contact Info) Description 02/24/2024 9:00 AM EDT Office Visit Hematology/Oncology at [address] [phone] Shon Schneider MD [facility] [place] [address] [address] HEMATOLOGY AND ONCOLOGY [place], [place] [address] 02/24/2024 9:30 AM EDT Infusion Hematology Oncology at [address] [phone] 03/02/2024 11:00 AM EDT Office Visit Hematology/Oncology at [address] [phone] Shon Schneider MD [facility] [place] [address] [address] HEMATOLOGY [place] [address] 03/02/2024 12:30 PM EDT Infusion Hematology Oncology at [address] [phone] 03/09/2024 10:00 AM EDT Office Visit Hematology/Oncology at [address] [phone] Shon Schnieder MD [facility] [place] [address] Ciara Pitts APRN [address] [place] [address] DR HEMATOLOGY [place] [address] 03/09/2024 10:30 AM EDT Infusion Hematology Oncology at [address] [phone] documented as of this encounter Procedures Procedure Name Priority Date/Time Associated Diagnosis Comments LAB SCAN 08/22/2017 12:[address] SCAN (SCAN) 08/17/2017 12:00 AM EST documented in this encounter Results * SCAN DOC: LAB (08/22/2017 12:00 AM EDT) Narrative 08/22/2017 12:00 AM EDT Ordered by an unspecified provider. Scanning Provider MEDIA MGR SCAN EXT O RDR/RSLT * SCAN DOC: CT SCAN (08/17/2017 12:00 AM EST) Anatomical Region Laterality Modality Other Narrative 08/17/2017 12:00 AM EST Ordered by an unspecified provider. 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 documented in this encounter Care Teams Show Host Or Hostess Relationship Specialty Start Date End Date Gloria Red MD [address] [place] [address] [place] [address] PCP - General Family Medicine 05/26/17 12/03/18 documented as of this encounter
--- OUTSIDE RECORDS SUMMARY | 2024-02-24 01:26 | XMS_ITS | Encounter Summary ---
Author Organization [facility] [address] Care Team Providers Care Body Bumper Name Role Phone Gloria Red MD Primary Care Provider Reason for Visit * Reason Comments Cancer Encounter Details Date Type Department Care Team (Late st Contact Info) Description 02/27/2018 8:30 AM EDT Office Visit Hematology/Oncology at [address] [phone] Jerrod White MD [address] [place] [id number] Thymic carcinoma Social History Tobacco Use Types Packs/Day Years Used Date Smoking Tobacco: Never Smokeless Tobacco: Never Sex and Gender Information Value Date Recorded Sex Assigned at Not on file Gender Identity Not on file Sexual Orientation Not on file documented as of this encounter Last Filed Vital Signs Vital Sign Reading Time Taken Comments Blood Pressure 142/81 02/27/2018 8:26 AM EDT Pulse 84 02/27/2018 8:26 AM EDT Temperature 37 ??C (98.6 ??F) 02/27/2018 8:26 AM EDT Respiratory Rate 20 02/27/2018 8:26 AM EDT Oxygen Saturation 100% 02/27/2018 8:26 AM EDT Inhaled Oxygen Concentration - - Weight 125.2 kg (276 lb) 02/27/2018 8:26 AM EDT Height 176.5 cm (5' 9.49) 02/27/2018 8:26 AM ED T copied Body Mass Index 40.19 02/27/2018 8:26 AM EDT documented in this encounter Progress Notes * Jerrod White MD - 02/27/2018 8:30 AM EDT Diagnosis: 1) 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 She notes that as far as side effects from the treatment goes she is actually doing better than she did at the initial start of her chemotherapy. He is really not having any significant neuropathy but does note a little numbness in the fingers of her thumb first and second fingerof the left hand. That is intermittent. She also has a little Numbness in the toes of her right foot on occasion. She is not having any nausea or vomiting and really does not have any dyspnea on exertion and feels well overall with no problems with breathing no chest discomfort at all. She is doing really well and her concurs. It is unusual for patients to tolerate this regiment as well as she is doing but she notes she actually feels better for a couple days after each treatment may benotes a little bit of fatigue towards the end of the week. She had a restaging scan at [facility] and we went over the results of that which shows a tumors continuing to shrink. Past medical history and social history reviewed [...] difficulty urinating. Musculoskeletal: Negative. Skin: Negative. Neurological: Negative except for some very subtle numbness in her left hand and right foot. Hematological: Negative for adenopathy. Head: Normocephalic, without [...] upon request. Final classification is deferred to resection.?Pricing Intern slides of this case were reviewed at the intradepartmental consultation conference. Immunoperoxidase stains were performed on this case to further characterize the lesion. ANTIBODY(CLONE)(BLOCK):RESULT Ckit (CD117) (EP10, Leica) (2): Positive CD5 (Rabbit Monoclonal, clone SP19, [employer]) (2): Positive PAX-8 (MRQ-50, [place]) (2): Positive P40 (BC28, [place]) (2): Positive Keratin AE1-AE3 (AE1-AE3, [employer]) (2): Positive Chromogranin (LK2H10, [place]) (2): Positive Synaptophysin (27G12, Leica) (2): Positive MIB-1 (DAKO) (MIB-1, Dako) (2): 5-15% nuclei positive CK7 (RN7, Leica) (2): Negative CK20 (Ks20.8, Leica) (2): Negative TTF-1 (8G7G3/1, [place]) (2): Negative GATA3 (L50-823, [place]) (2): Negative CD34 (QBEnd/10, Leica) (2): Negative CASE: [id number] Second Opinion PATIENT: MONICA PIERRE [facility] Department of Pathology [address] [place] [address], [place] [address] CLIA License No.: [id number] Silviculture Teacher: Dr. Juan Jose Mcleod Physician: EDVIN SYED M.D. Resident: Natali Flores?Kaylah Calle, Ph.D. Pathologist:? Bhargavi Gil M.D. PATHOLOGIC DIAGNOSIS: CONSULT SLIDES FROM [facility]; [place], [place]: A. MEDIASTINUM, MASS, BIOPSY ([id number]; 03/22/2017): ? 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 ?Immunohistochemistry performed at the outside institution and reviewed ?at [facility] demonstrates the following staining profile in lesional cells: ? Positive - AE1/AE3, p40, PAX8, CD117, CD5(multifocal), ?CK7(scattered cells), synaptophysin, chromogranin ? Negative - CK20, TTF-1, GATA3, CD34 ? The immunohistochemical profile supports the above diagnosis. ? Ki67 (MIB-1) proliferation index performed at the referring ?institution and reviewed at [facility] is focally up to ~30%. [...] chain myosin and P63, confirming their benign nature.?Pricing Intern slides of this case were reviewed at the intradepartmental consultation conference.?(Dr. Bond)/[facility] PET CT EYE TO THIGH?04/18/2017 2:03 PM Signs and Symptoms/Comments:? C7A.8-Other malignant neuroendocrine tumors (HCC)-ICD-10 O30-Gtztdicdf neoplasm of thymus (HCC)-ICD-10; thymic squamous cell ca, thymic neuroendocrine tumor, vertebral body lesions concerning for mets . Comparison: CT of the abdomen and pelvis from 03/23/2017, CT of the chest from 03/18/2017, ultrasound guided breast biopsy from 03/25/2017 Technique: Approximately 91 minutes following the IV injection of 15 mCi of A60-[id number], 3D TOF PET imaging was obtained from the head to the upper thighs with attenuation correction using a [employer] [place] dedicated closed ring PET / [...] above interpretation and agree with the findings. ONCBCN ONCOLOGY (AMB) 05/30/2017 Day, Cycle Day [...] (NEULASTA) SubQ 6 mg ONCBCN ONCOLOGY (AMB) 08/22/2017 Day, Cycle Day 1, Cycle 5 CARBOplatin (PARAPLATIN) IV 900 mg PACLitaxel (TAXOL) IV 200 mg/m2/dose = 480 mg pegfilgrastim (NEULASTA) SubQ 6 mg ONCBCN ONCOLOGY (AMB) 09/13/2017 Day, Cycle Day 1, Cycle 6 CARBOplatin (PARAPLATIN) IV 900 mg PACLitaxel (TAXOL) IV 200 mg/m2/dose = 480 mg pegfilgrastim (NEULASTA) SubQ 6 mg ONCBCN ONCOLOGY (AMB) 10/03/2017 Day, Cycle Day 1, Cycle 7 CARBOplatin (PARAPLATIN) IV 900 mg PACLitaxel (TAXOL) IV 200 mg/m2/dose = 480 mg pegfilgrastim (NEULASTA) SubQ 6 mg ONCBCN ONCOLOGY (AMB) 10/24/2017 Day, Cycle Day 1, Cycle 8 CARBOplatin (PARAPLATIN) IV 900 mg PACLitaxel (TAXOL) IV 200 mg/m2/dose = 480 mg pegfilgrastim (NEULASTA) SubQ 6 mg ONCBCN ONCOLOGY (AMB) 11/21/2017 Day, Cycle Day 1, Cycle 9 CARBOplatin (PARAPLATIN) IV 900 mg PACLitaxel (TAXOL) IV 200 mg/m2/dose = 480 mg pegfilgrastim (NEULASTA) SubQ 6 mg ONCBCN ONCOLOGY (AMB) 12/12/2017 Day, Cycle Day 1, Cycle 10 CARBOplatin (PARAPLATIN) IV 900 mg PACLitaxel (TAXOL) IV 200 mg/m2/dose = 480 mg pegfilgrastim (NEULASTA) SubQ 6 mg ONCBCN ONCOLOGY (AMB) 01/16/2018 Day, Cycle Day 1, Cycle 11 CARBOplatin (PARAPLATIN) IV 900 mg PACLitaxel (TAXOL) IV 200 mg/m2/dose = 480 mg pegfilgrastim (NEULASTA) SubQ 6 mg ONCBCN ONCOLOGY (AMB) 02/06/2018 Day, Cycle Day 1, Cycle 12 CARBOplatin (PARAPLATIN) IV 900 mg PACLitaxel (TAXOL) IV 200 mg/m2/dose = 480 mg pegfilgrastim (NEULASTA) SubQ [address] CHEST W CONTRAST?08/17/2017 10:01 AM Clinical History/Comments: Malignant thyoma post chemotherapy. Technique: A single breath-hold helical CT acquisition was performed through the chest on a multidetector-row scanner with a reconstructed slice thickness of 3 mm and retrospectively reconstructed 0.9 mm thick sections with 0.45 mm overlapping intervals.?The scans were obtained from the lung apices through the bases during the intravenous administration of 70-100 cc of 350-370 mg% nonionic contrast injected at a rate of 2 cc/second. Scans were reviewed on a dedicated PACS workstation for analysis. Exam description: CT of the chest with contrast Comparison: PET/CT 04/18/[address] from 03/18/2017 Findings: Lower neck: No abnormalities. Chest wall soft tissues: Stable left breast mass compared to the prior PET/CT scan. Mediastinum and william: The multilobulated anterior mediastinal mass has decreased in size since the 03/18/2017 examination, with less conspicuous change compared to the PET/CT from 04/18/2017. A left cardiophrenic lymph node is decreased in size, with a residual node measuring approximately 7 mm. No new or enlarging mediastinal lymph nodes.? Heart and mediastinal vasculature:?Scattered calcified plaques of the coronary arteries and aorta, left atrial enlargement. Trace pericardial effusion is stable. Large airways:?Mildly thickened. Lungs:?Atelectasis or scarring in the lingula, and scattered regions of mild right and left lower lobe atelectasis or scarring. Pleura: The left pleural effusion is slightly smaller than on the PET/CT from 04/18/2017. Otherwise left pleural thickening/masses are minimally changed. Upper abdomen (limited to upper abdomen, not optimized for abdominal imaging): Ventral abdominal wall hernia containing omental fat and bowel loops, incompletely included on this scan. Bones:?No significant abnormalities. Scattered, hypodense thoracic spine lesions probably reflect hemangiomas. Impression: 1.?Overall, mild changes compared to the [...] breast mass. 3.?Additional findings as above. CT CHEST W CONTRAST?12/28/2017 2:41 PM Signs and Symptoms/Comments:?Thymic carcinoma. Technique: A single breath-hold helical CT acquisition was performed through the chest on a multidetector-row scanner with a reconstructed slice thickness of 3 mm and retrospectively reconstructed 0.9 mm thick sections with 0.45 mm overlapping intervals.?The scans were obtained from the lung apices through the bases during the intravenous administration of 90-100 cc of 370 mg% nonionic contrast injected at a rate of 2 cc/second. Scans were reviewed on a dedicated PACS workstation for analysis. Comparison: CT chest 5 months prior. Findings: There is a stable nodule within the retroareolar region of the left breast (#99). In comparison to 5 months ago, there has been slight decrease in size of a known anterior mediastinal mass now measuring 9 x 3.1 cm in the axial dimension, previously 9.7 x 4.1 cm. There are also new/progressive regions of calcification within. More numerous than normal upper mediastinal prevascular and right paratracheal lymph nodes are stable in size. Atherosclerotic calcifications are present within the coronary arteries and aorta. The left atrium is enlarged. The heart and pericardium are otherwise unremarkable. The large airways are normal. There are linear regions of atelectasis/scarring within the right middle lobe and lingula. Plaque-like pleural and subpleural nodularity throughout the left hemithorax has improved as well. A previously noted small left pleural effusion as resolved. No pleural abnormalities are present on the right. Evaluation of the upper abdomen demonstrates a partially visualized supraumbilical ventral hernia. The bones within normal limits for age. IMPRESSION: 1. Slight decrease in size of known anterior mediastinal mass, stable superior mediastinal adenopathy and improvement of pleural disease within the left hemithorax. 2. Coronary atherosclerosis. 3. Left atrial enlargement. Review of Kaley's lab today shows a white count of 3.11 neutrophil count of 1.57 hemoglobin is lower at 6.6 with hematocrit of 20.0 platelets 100,000. CMP shows normal electrolytes a creatinine of 0.81 calcium 8.8 magnesium 1.2 alkaline phosphatase is 54 Assessment/plan: Kaley is tolerating her carboplatinum and Taxol exceptionally well. Her chemotherapy associated anemia is gotten to a level that she needs to consider transfusion. 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 That being said we will go ahead with chemotherapy today and arrange for transfusion of 2 units of packed cells afterwards. Informed consent is given. We will see her back in 3 weeks time. She also mentioned she had trouble sleeping with the on pro-system as she usually lays in the area where the placed it when she sleeps at night. She thought she did better on the Neulasta and certainly her white countwas a little better so we will go ahead and make the change. Finally even though she has been heavily pretreated she has no evidence for any neuropathy. She has some underlying mild neuropathy but that has not changed since the start of treatment. Follow-up is arranged for 3 weeks for another cycleof treatment. She will call if there is issues or problems in the interim. documented in this encounter Plan of Treatment Upcoming Encounters Date Type Department Care Team (Late st Contact Info) Description 02/24/2024 9:00 AM EDT Office Visit Hematology/Oncology at [address] [phone] Shon Schneider MD [facility] [place] [address] Ciara Pitts APRN [address] [place] [address] [place] [address] 02/24/2024 9:30 AM EDT Infusion Hematology Oncology at [address] [phone] 03/02/2024 11:00 AM EDT Office Visit Hematology/Oncology at [address] [phone] Shon Schneider MD [facility] [place] [address] [place] [address] 03/02/2024 12:30 PM EDT Infusion Hematology Oncology at [address] [phone] 03/09/2024 10:00 AM EDT Office Visit Hematology/Oncology at [address] [phone] Shon Schneider MD [facility] [place] [address] Ciara Pitts, [address] [place] [address] 03/09/2024 10:30 AM EDT Infusion Hematology Oncology at [address] [phone] documented as of this encounter Procedures Procedure Name Priority Date/Time Associated Diagnosis Comments CHEMOTHERAPY SCAN 03/02/2018 12: 00 AM EDT LAB SCAN 02/27/2018 12:00 AM EDT documented in this encounter Results * SCAN DOC: CHEMOTHERAPY (03/02/2018 12:00 AM EDT) Narrative 03/02/2018 12:00 AM EDT Ordered by an unspecified provider. Scanning Provider MEDIA MGR SCAN EXT O RDR/RSLT * SCAN DOC: LAB (02/27/2018 12:00 AM EDT) Narrative 02/27/2018 12:00 AM EDT Ordered by an unspecified provider. 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 documented in this encounter Care Teams Body Bumper Relationship Specialty Start Date End Date Gloria Red MD [address] [place] [address] [place] [phone] PCP - General Family Medicine 05/26/17 12/03/18 documented as of this encounter
--- OUTSIDE RECORDS SUMMARY | 2024-02-24 01:26 | XMS_ITS | Encounter Summary ---
Author Organization [facility] [place] [address] Care Team Providers Care Prevention Coordinator Name Role Phone Gloria Red MD Primary Care Provider [phone] Reason for Visit * Reason Comments Chemotherapy Cycle 3 Day 1 Taxol Carbo * Treatment/Therapy Plan Authorization (Routine) - Closed Specialty Diagnoses / Procedures Referred By Franklyn t Referred To Contact Hematology and Oncology Diagnoses Thymic carcinoma Procedures TC PALONOSETRON HCL, 25MCG, INJECTION (ALOXI) TC FOSAPREPITANT, 1MG, INJECTION (EMEND) TC CARBOPLATIN, 50MG, INJECTION (PARAPLATIN) TC PACLITAXEL, 1MG, INJ TC PEGFILGRASTIM, 6MG, INJECTION Jerrod White MD [address] [place] [address] [facility] Hem Onc Office [address] [place] [phone] Referral ID Status Reason Start Date Expiration Date Visits Re quested Visits Authorized [id number] Closed 05/27/2017 08/26/2018 18 18 Encounter Details Date Type Department Care Team (Late st Contact Info) Description 07/11/2017 9:30 AM EST Infusion Hematology Oncology at [address] [phone] Thymic carcinoma Social History Tobacco Use Types Packs/Day Years Used Date Smoking Tobacco: Never Smokeless Tobacco: Never Sex and Gender Information Value Date Recorded Sex Assigned at Not on file Gender Identity Not on file Sexual Orientation Not on file documented as of this encounter Progress Notes * Eden Vieira RN - 07/11/2017 9:30 AM EST INFUSION THERAPY ADMINISTRATION NOTES DIAGNOSIS: Thymic carcinoma CYCLE # 3, Day 1 REASON FOR VISIT: Carbo/Taxol infusion & Neulasta SUBJECTIVE Monica offers no complaints. OBJECTIVE LAB DATA: WNL, reviewed by Desiree Curran. IV ACCESS: Mediport Pre administration: Chemotherapy orders independently verified for drug name, route, and dosage per patient's height, weight and BSA by Eden Vieira RN & Josh Paul [facility]. REACTIONS (DESCRIPTION, TIME, INTERVENTION AND EFFECTIVENESS) none ASSESSMENT Monica was awake, alert and tolerated treatment well. PLAN Return to clinic as scheduled.. documented in this encounter Plan of Treatment Upcoming Encounters Date Type Department Care Team (Late st Contact Info) Description 02/24/2024 9:00 AM EDT Office Visit Hematology/Oncology at [address] [phone] Shon Schneider MD [facility] [place] [address] [address] HEMATOLOGY [place] [address] 02/24/2024 9:30 AM EDT Infusion Hematology Oncology at [address] [phone] 03/02/2024 11:00 AM EDT Office Visit Hematology/Oncology at [address] [phone] Shon Schneider MD [facility] [place] [address] Ciara Pitts [address] HEMATOLOGY AND ONCOLOGY [place], [place] [address] 03/02/2024 12:30 PM EDT Infusion Hematology Oncology at [address] [phone] 03/09/2024 10:00 AM EDT Office Visit Hematology/Oncology at [address] [phone] Shon Schneider MD [facility] [place] [address] Ciara Pitts APRN [address] [place] [address] DR HEMATOLOGY AND ONCOLOGY [place], [place] [id number] 03/09/2024 10:30 AM EDT Infusion Hematology Oncology at [address] [phone] documented as of this encounter Procedures Procedure Name Priority Date/Time Associated Diagnosis Comments LAB SCAN 07/11/2017 12:00 AM EST documented in this encounter Results * SCAN DOC: LAB (07/11/2017 12:00 AM EST) Narrative 07/11/2017 12:00 AM EST Ordered by an unspecified [...] = 6), Intravenous, ONCE, 1 dose, On Tue07/11/17 at 1045, Administer over 30 Minutes, Hold Parameters: CARBOplatin, Call provider for serum creatinine less than (mg/dL): .2, Call provider for serum creatinine greater than (mg/dL): 2, External serum creatinine results used to calculate dose? Yes, Enter serum creatinine value (mg/dL): .5, Enter serum creatinine result date: 05/26/2017 New Bag 07/11/2017 2:12 PM EST 900 mg 680 mL/hr dexamethasone (DECADRON) injection 10 mg 10 mg, Intravenous, ONCE, 1 dose, On Tue07/11/17 at 0945, Administer 30 minutes prior to PACLitaxel Given 07/11/2017 10:02 AM EST 10 mg diphenhydrAMINE (BENADRYL) injection 25 mg 25 mg, Intravenous, ONCE, 1 dose, On Tue07/11/17 at 0945, Administer 30 minutes prior to PACLitaxel, Routine Given 07/11/2017 10:05 AM EST 25 mg famotidine (PEPCID) injection 20 mg 20 mg, Intravenous, ONCE, 1 dose, On Tue07/11/17 at 0945, Administer 30 minutes prior to PACLitaxel Given 07/11/2017 10:07 AM EST 20 mg fosaprepitant (EMEND) 150 mg in sodium chloride 0.9% 155 mL infusion 150 mg, Intravenous, at 310 mL/hr, Administer over 30 Minutes, ONCE, 1 dose, On Tue07/11/17 at 0945, Routine New Bag 07/11/2017 10:09 AM EST 150 mg 310 mL/hr heparin, porcine 100 unit/mL flush 500 Units 500 Units, Intravenous, ONCE PRN, Starting on Tue07/11/17 at 0918, Until Tue07/11/17 at 1653, Line Care, Refer to Intravenous (IV) Procedure: Accessing Implanted Vascular Access Devices (084) procedure and/or Intravenous (IV) Job Aid: Adult Flushing & Catheter Care (5047) job aid for additional information regarding guidelines and administration., Routine Given 07/11/2017 2:51 PM EST 500 Units PACLitaxel (TAXOL) 480 mg in sodium chloride 0.9% Non-PVC 580 mL chemo infusion 480 mg (200 mg/m2/dose ? 2.4 m2 Treatment Plan BSA from Recorded weight), Intravenous, ONCE, 1 dose, On Tue07/11/17 at 1045, Administer over 3 Hours, Warning Vesicant/Irritant Medication New Bag 07/11/2017 10:57 AM EST 480 mg 193.3 mL/hr palonosetron (ALOXI) injection 0.25 mg 0.25 mg, Intravenous, ONCE, 1 dose, On Tue07/11/17 at 0945, Administer over 30 seconds. Administer prior to chemotherapy, Routine Given 07/11/2017 10:08 AM EST 0.25 mg pegfilgrastim (NEULASTA) injection 6 mg 6 mg, Subcutaneous, ONCE, 1 dose, On Tue07/11/17 at 0945, Bring to room temperature 15-30 mins before administration. , Routine Given 07/11/2017 2:13 PM EST 6 mg Right Arm sodium chloride 0.9 % flush 5-20 mL 5-20 mL, Intravenous, EVERY 1 MIN PRN, Starting on Tue07/11/17 at 0918, Until Tue07/11/17 at 1653, Line Care, Flush pertains to all indwelling lines. Flush per protocol found in the job aid using the link provided on this medication record. Refer to Intravenous (IV) Job Aid: Adult Flushing & Catheter Care (7867) job aid for additional information regarding guidelines and administration., Routine Given 07/11/2017 2:51 PM EST 20 mLs documented in this encounter Care Teams Prevention Coordinator Relationship Specialty Start Date End Date Gloria Red MD [address] [place] [address] [place] [phone] PCP - General Family Medicine 05/26/17 12/03/18 documented as of this encounter
--- OUTSIDE RECORDS SUMMARY | 2024-02-24 01:26 | XMS_ITS | Encounter Summary ---
Author Organization [facility] [place] [address] Care Team Providers Care Chief Technician Name Role Phone Gloria Red MD Primary Care Provider Reason for Visit * Reason Comments Cancer Encounter Details Date Type Department Care Team (Late st Contact Info) Description 09/13/2017 8:00 AM EDT Office Visit Hematology/Oncology at [address] [phone] Jerrod White MD [address] [place] [address] Thymic carcinoma Social History Tobacco Use Types Packs/Day Years Used Date Smoking Tobacco: Never Smokeless Tobacco: Never Sex and Gender Information Value Date Recorded Sex Assigned at Not on file Gender Identity Not on file Sexual Orientation Not on file documented as of this encounter Last Filed Vital Signs Vital Sign Reading Time Taken Comments Blood Pressure 126/75 09/13/2017 8:05 AM EDT Pulse 79 09/13/2017 8:05 AM EDT Temperature 36.6 ??C (97.9 ??F) 09/13/2017 8:05 AM ED T Respiratory Rate 18 09/13/2017 8:05 AM EDT Oxygen Saturation 98% 09/13/2017 8:05 AM EDT Inhaled Oxygen Concentration - - Weight 120.7 kg (266 lb) 09/13/2017 8:05 AM EDT Height 176.5 cm (5' 9.49) 09/13/2017 8:05 AM ED T copied Body Mass Index 38.73 09/13/2017 8:05 AM EDT documented in this encounter Progress Notes * Jerrod White MD - 09/13/2017 8:00 AM EDT Diagnosis: 1) 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 Despite the high end of the dosingon the chemotherapy regiment, she is tolerating it exceptionally well with good control of nausea and vomiting no symptoms of peripheral neuropathy, no transfusion reactions, and minimal posttreatment myalgias and arthralgias. Her energy levels are reasonable. She is not having dyspnea on exertion related to her anemia. Review of systems is negative. Her breathing is fine. Past medical history and social history reviewed [...] upon request. Final classification is deferred to resection.?Filler Sifter Helper slides of this case were reviewed at the intradepartmental consultation conference. Immunoperoxidase stains were performed on this case to further characterize the lesion. ANTIBODY(CLONE)(BLOCK):RESULT Ckit (CD117) (EP10, Leica) (2): Positive CD5 (Rabbit Monoclonal, clone SP19, [employer] J[employer] Entendi) (2): Positive PAX-8 (MRQ-50, Keys) (2): Positive P40 (BC28, Keys) (2): Positive Keratin AE1-AE3 (AE1-AE3, Biocare) (2): Positive Chromogranin (LK2H10, Keys) (2): Positive Synaptophysin (27G12, Leica) (2): Positive MIB-1 (DAKO) (MIB-1, Dako) (2): 5-15% nuclei positive CK7 (RN7, Leica) (2): Negative CK20 (Ks20.8, Leica) (2): Negative TTF-1 (8G7G3/1, Keys) (2): Negative GATA3 (L50-823, Keys) (2): Negative CD34 (QBEnd/10, Leica) (2): Negative CASE: [id number] Second Opinion PATIENT: BRAYAN PIERRE [facility] Department of Pathology [address] [place] [address] License No.: [id number] Wet Finisher Wool: Dr. Juan Jose Mcleod Physician: EDVIN SYED M.D. Resident: Natali Flores?Kaylah Calle, Ph.D. Pathologist:? Bhargavi Gil M.D. PATHOLOGIC DIAGNOSIS: CONSULT SLIDES FROM [facility]; [place], [place]: A. MEDIASTINUM, MASS, BIOPSY ([id number]; 03/22/2017): ? 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 ?Immunohistochemistry performed at the outside institution and reviewed ?at [facility] demonstrates the following staining profile in lesional cells: ? Positive - AE1/AE3, p40, PAX8, CD117, CD5(multifocal), ?CK7(scattered cells), synaptophysin, chromogranin ? Negative - CK20, TTF-1, GATA3, CD34 ? The immunohistochemical profile supports the above diagnosis. ? Ki67 (MIB-1) proliferation index performed at the referring ?institution and reviewed at [facility] is [...] chain myosin and P63, confirming their benign nature.?Filler Sifter Helper slides of this case were reviewed at the intradepartmental consultation conference.?(Dr. Bond)/mpl [place] PET CT EYE TO THIGH?04/18/2017 2:03 PM Signs and Symptoms/Comments:? C7A.8-Other malignant neuroendocrine tumors (HCC)-ICD-10 R64-[place]jiarf neoplasm of thymus (HCC)-ICD-10; thymic squamous cell ca, thymic neuroendocrine tumor, vertebral body lesions concerning for mets . Comparison: CT of the abdomen and pelvis from 03/23/2017, CT of the chest from 03/18/2017, ultrasound guided breast biopsy from 03/25/2017 Technique: Approximately 91 minutes following the IV injection of 15 mCi of [id number], 3D TOF PET imaging was obtained from the head to the upper thighs with attenuation correction using a [employer] Big Bore dedicated closed ring PET / [...] that to consideration for resistant disease only. [facility]COL[facility]Y (AMB) 05/30/2017 Day, Cycle Day 1, [...] Laboratory today shows a white count of 3.49 hemoglobin 9.5 hematocrit 29.4 platelet count 145 absolute neutrophil count 1.84 review of her chemistry shows normal electrolytes of potassium 3.6 creatinine of 0.56 calcium 8.9 normal liver tests with an ALP of 51 albumin is 3.3 Assessment/plan: Brayan is tolerating the chemotherapy regimen exceptionally well. She is having some increasing chemotherapy associated anemia and her counts are slowly trending downward even with the Neulasta but for now we can keep up the current dose intensity. Antiemetics are appropriate and do not need to be adjusted today and chemotherapy dosing also is appropriate for her weight and blood counts. No adjustments are made there. She is not having any neuropathy symptoms and there is no infusion reactions noted. We will go ahead with today's treatment and see her back in 3 weeks with lab for cycle 7 with plans on restaging her after cycle 8. She will call if there is issues or problems in the interim. documented in this encounter Plan of Treatment Upcoming Encounters Date Type Department Care Team (Late st Contact Info) Description 02/24/2024 9:00 AM EDT Office Visit Hematology/Oncology at [address] [phone] Shon Schneider MD [facility] [place] [address] [address] HEMATOLOGY AND ONCOLOGY [place], [place] [address] 02/24/2024 9:30 AM EDT Infusion Hematology Oncology at [address] [phone] 03/02/2024 11:00 AM EDT Office Visit Hematology/Oncology at [address] [phone] Shon Schneider MD [facility] [place] [address] Ciara Pitts [address] HEMATOLOGY AND ONCOLOGY [place], [place] [address] 03/02/2024 12:30 PM EDT Infusion Hematology Oncology at [address] [phone] 03/09/2024 10:00 AM EDT Office Visit Hematology/Oncology at [address] [phone] hSon Schneider MD [facility] [place] [address] [address] HEMATOLOGY AND ONCOLOGY [place], [place] [address] 03/09/2024 10:30 AM EDT Infusion Hematology Oncology at [address] [phone] documented as of this encounter Procedures Procedure Name Priority Date/Time Associated Diagnosis Comments LAB SCAN 09/13/2017 12:00 AM EDT documented in this encounter Results * SCAN DOC: LAB (09/13/2017 12:00 AM EDT) Narrative 09/13/2017 12:00 AM EDT Ordered by an unspecified provider. 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 documented in this encounter Care Teams Chief Technician Relationship Specialty Start Date End Date Gloria Red MD [address] [place] [address] [place] [phone] PCP - General Family Medicine 05/26/17 12/03/18 documented as of this encounter
--- OUTSIDE RECORDS SUMMARY | 2024-02-24 01:26 | XMS_ITS | Encounter Summary ---
Author Organization [facility] [place] [address] Care Team Providers Care Athletic Field Custodian Name Role Phone Gloria Red MD Primary Care Provider Reason for Visit * Reason Comments Cancer Encounter Details Date Type Department Care Team (Late st Contact Info) Description 01/16/2018 8:30 AM EDT Office Visit Hematology/Oncology at [address] [phone] Jerrod White MD [address] [place] [address] Thymic carcinoma Social History Tobacco Use Types Packs/Day Years Used Date Smoking Tobacco: Never Smokeless Tobacco: Never Sex and Gender Information Value Date Recorded Sex Assigned at Not on file Gender Identity Not on file Sexual Orientation Not on file documented as of this encounter Last Filed Vital Signs Vital Sign Reading Time Taken Comments Blood Pressure 141/85 01/16/2018 8:18 AM EDT Pulse 80 01/16/2018 8:18 AM EDT Temperature 36.9 ??C (98.4 ??F) 01/16/2018 8:18 AM ED T Respiratory Rate 16 01/16/2018 8:18 AM EDT Oxygen Saturation 100% 01/16/2018 8:18 AM EDT Inhaled Oxygen Concentration - - Weight 121.1 kg (267 lb) 01/16/2018 8:18 AM EDT Height 176.5 cm (5' 9.49) 01/16/2018 8:18 AM ED T Body Mass Index 38.88 01/16/2018 8:18 AM EDT documented in this encounter Progress Notes * Jerrod White MD - 01/16/2018 8:30 AM EDT Diagnosis: 1) 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 She had a restaging scan at [facility] and we went over the results of [...] upon request. Final classification is deferred to resection.?Stem Maker slides of this case were reviewed at the intradepartmental consultation conference. Immunoperoxidase stains were performed on this case to further characterize the lesion. ANTIBODY(CLONE)(BLOCK):RESULT Ckit (CD117) (EP10, Leica) (2): Positive CD5 (Rabbit Monoclonal, clone SP19, [employer] Scientific) (2): Positive PAX-8 (MRQ-50, Wolford) (2): Positive P40 (BC28, Wolford) (2): Positive Keratin AE1-AE3 (AE1-AE3, [employer]ocare) (2): Positive Chromogranin (LK2H10, [place]ford) (2): Positive Synaptophysin (27G12, Leica) (2): Positive MIB-1 (DAKO) (MIB-1, Dako) (2): 5-15% nuclei positive CK7 (RN7, Leica) (2): Negative CK20 (Ks20.8, Leica) (2): Negative TTF-1 (8G7G3/1, Wolford) (2): Negative GATA3 (L50-823, Wolford) (2): Negative CD34 (QBEnd/10, Leica) (2): Negative CASE: [id number] Second Opinion PATIENT: MONICA PIERRE [facility] Department of Pathology [address] [place] [address], [place] [address] CLIA License No.: [id number] Technical Maintenance Technician: Dr. Juan Jose Mcleod Physician: EDVIN SYED M.D. Resident: Natali Flores?Kaylah Calle, Ph.D. Pathologist:? Bhargavi Gil M.D. PATHOLOGIC DIAGNOSIS: CONSULT SLIDES FROM [facility]; [place], [place]: A. MEDIASTINUM, MASS, BIOPSY ([id number]; 03/22/2017): ? 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 ?Immunohistochemistry performed at the outside institution and reviewed ?at [facility] demonstrates the following staining profile in lesional cells: ? Positive - AE1/AE3, p40, PAX8, CD117, CD5(multifocal), ?CK7(scattered cells), synaptophysin, chromogranin ? Negative - CK20, TTF-1, GATA3, CD34 ? The immunohistochemical profile supports the above diagnosis. ? Ki67 (MIB-1) proliferation index performed at the referring ?institution and reviewed at [facility] [...] chain myosin and P63, confirming their benign nature.?Stem Maker slides of this case were reviewed at the intradepartmental consultation conference.?(Dr. Bond)/[facility] PET CT EYE TO THIGH?04/18/2017 2:03 PM Signs and Symptoms/Comments:? C7A.8-Other malignant neuroendocrine tumors (HCC)-ICD-10 D09-Dzzwyykwv neoplasm of thymus (HCC)-ICD-10; thymic squamous cell ca, thymic neuroendocrine tumor, vertebral body lesions concerning for mets . Comparison: CT of the abdomen and pelvis from 03/23/2017, CT of the chest from 03/18/2017, ultrasound guided breast biopsy from 03/25/2017 Technique: Approximately 91 minutes following the IV injection of 15 mCi of O08-bpbvsbbaofplhntfvf, 3D TOF PET imaging was obtained from the head to the upper thighs with attenuation correction using a [employer] Big Bore dedicated closed ring PET / [...] 2. Coronary atherosclerosis. 3. Left atrial enlargement. Laboratory today shows normal electrolytes creatinine of 0.7 normal liver tests. Her white count is3.97 hemoglobin 9.9 hematocrit 30.0 and platelet count 138. Absolute neutrophil count is 2.67 Assessment/plan: Kaley is tolerating her carboplatinum and Taxol exceptionally well. Blood counts are holding overall and she is really having no neuropathy or serious side effects from the treatment. Tumor measurements show that the tumor went from 39.7 cm?? to 27.9 cm?? which is a further 30% reduction. In view of that and the lack of side effects from treatment I would favor continuing on at least with another4 cycles of treatment before restaging with another scan at [facility]. We will continueto monitor for her chemotherapy associated anemia. We will also continue to try and check magnesiumlevels although they are finally coming up. We will hold today's dosage in view of the fact that her magnesium is now back to normal. Follow-up is arranged for 3 weeks with lab including a recheck onher magnesium. If it drops again we can repleted again IV. documented in this encounter Plan of Treatment Upcoming Encounters Date Type Department Care Team (Late st Contact Info) Description 02/24/2024 9:00 AM EDT Office Visit Hematology/Oncology at [address] [phone] Shon Schneider MD [facility] [place] [place] [address] HEMATOLOGY AND ONCOLOGY [place], [place] [phone] 02/24/2024 9:30 AM EDT Infusion Hematology Oncology at [address] [phone] 03/02/2024 11:00 AM EDT Office Visit Hematology/Oncology at [address] [phone] Shon Schneider MD [facility] [place] [address] [address] HEMATOLOGY AND ONCOLOGY [place], [place] [address] 03/02/2024 12:30 PM EDT Infusion Hematology Oncology at [address] [phone] 03/09/2024 10:00 AM EDT Office Visit Hematology/Oncology at [address] [phone] Shon Schneider MD [facility] [place] [address] Ciara Pitts [address] HEMATOLOGY AND ONCOLOGY [place], [place] [address] 03/09/2024 10:30 AM EDT Infusion Hematology Oncology at [address] [phone] documented as of this encounter Procedures Procedure Name Priority Date/Time Associated Diagnosis Comments LAB SCAN 01/02/2018 12:00 AM EDT documented in this encounter Results * SCAN DOC: LAB (01/02/2018 12:00 AM EDT) Narrative 01/02/2018 12:00 AM EDT Ordered by an unspecified provider. 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 documented in this encounter Care Teams Athletic Field Custodian Relationship Specialty Start Date End Date Gloria Red MD [address] [place] [address] [place] [phone] PCP - General Family Medicine 05/26/17 12/03/18 documented as of this encounter
--- OUTSIDE RECORDS SUMMARY | 2024-02-24 01:26 | XMS_ITS | Encounter Summary ---
Author Organization [facility] [place] [address] Care Team Providers Care Slabber Name Role Phone Gloria Red MD Primary Care Provider Reason for Visit * Reason Onset Date Comments Questions 11/24/2017 CT SCAN at [facility] 12/29, Is this Ok with Kubica? Encounter Details Date Type Department Care Team (Late Contact Info) Description 11/24/2017 Telephone Hematology/Oncology at [address] [phone] Ute Chacon, RN Questions (CT SCAN at [facility] 12/29, Is this Ok with Kubica?) Social History Tobacco Use Types Packs/Day Years Used Date Smoking Tobacco: Never Smokeless Tobacco: Never Sex and Gender Information Value Date Recorded Sex Assigned at Not on file Gender Identity Not on file Sexual Orientation Not on file documented as of this encounter Miscellaneous Notes * Telephone Encounter - Ute Chacon RN - 11/24/2017 4:38 PM EDT Patient inquiring whether to get CT at [facility] on 12/13 or [facility] on 12/29, Kubica consulted and hewants CT on 12/29 at [facility]. Patient advised. documented in this encounter Plan of Treatment Upcoming Encounters Date Type Department Care Team (Late Contact Info) Description 02/24/2024 9:00 AM EDT Office Visit Hematology/Oncology at [address] [phone] Shon Schneider MD [facility] [place] [address] [address] HEMATOLOGY AND ONCOLOGY [place], [place] [phone] 02/24/2024 9:30 AM EDT Infusion Hematology Oncology at [address] [phone] 03/02/2024 11:00 AM EDT Office Visit Hematology/Oncology at [address] [phone] 26 Shon Schneider MD [facility] [place] [address] [address] HEMATOLOGY AND ONCOLOGY [place], [place] [address] 03/02/2024 12:30 PM EDT Infusion Hematology Oncology at [address] [phone] 03/09/2024 10:00 AM EDT Office Visit Hematology/Oncology at [address] [phone] Shon Schneider MD [facility] [place] [address] [address] HEMATOLOGY AND ONCOLOGY [place], [place] [address] [phone] 03/09/2024 10:30 AM EDT Infusion Hematology Oncology at [address] [phone] documented as of this encounter Visit Diagnoses Not on filedocumented in this encounter Care Teams Slabber Relationship Specialty Start Date End Date Gloria Red MD [address] [place] [address] [place] [phone] PCP - General Family Medicine 05/26/17 12/03/18 documented as of this encounter
--- OUTSIDE RECORDS SUMMARY | 2024-02-24 01:26 | XMS_ITS | Encounter Summary ---
Author Organization [facility] Address [facility] [place] [address] Care Team Providers Care Quality Compliance Consultant Name Role Phone Gloria Red MD Primary Care Provider [phone] Encounter Details Date Type Department Care Team (Late st Contact Info) Description 04/14/2018 3:00 PM EDT Office Visit Hematology/Oncology at [address] [phone] Shon Coates MD [facility] [place] [address] Thymic carcinoma; Pleural metastasis Social History Tobacco Use Types Packs/Day Years Used Date Smoking Tobacco: Never Smokeless Tobacco: Never Sex and Gender Information Value Date Recorded Sex Assigned at Not on file Gender Identity Not on file Sexual Orientation Not on file documented as of this encounter Last Filed Vital Signs Vital Sign Reading Time Taken Comments Blood Pressure 147/85 04/14/2018 2:56 PM EDT Pulse 93 04/14/2018 2:56 PM EDT Temperature 36.8 ??C (98.2 ??F) 04/14/2018 2:56 PM ED T Respiratory Rate 18 04/14/2018 2:56 PM EDT Oxygen Saturation 100% 04/14/2018 2:56 PM EDT Inhaled Oxygen Concentration - - Weight 125.2 kg (276 lb) 04/14/2018 2:56 PM EDT Height 176.5 cm (5' 9.49) 04/14/2018 2:56 PM ED T Body Mass Index 40.19 04/14/2018 2:56 PM EDT documented in this encounter Progress Notes * Shon Coates MD - 04/14/2018 3:00 PM EDT Subjective: Patient ID: Monica Jaramillo is a 62 y.o. female. Problem List: 1. Thymic carcinoma A. Presented to the ED with increasing [...] - CONSULT SLIDES FROM [facility]; [place], [place]: A. MEDIASTINUM, MASS, BIOPSY ([id number]; 03/22/2017): ? 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 ?Immunohistochemistry performed at the outside institution and reviewed at [facility] demonstrates the following staining profile in lesional cells: ? Positive - AE1/AE3, p40, PAX8, CD117, CD5(multifocal), CK7(scattered cells), synaptophysin, chromogranin ? Negative - CK20, TTF-1, GATA3, CD34 ? The immunohistochemical profile supports the above diagnosis. ? Ki67 (MIB-1) proliferation index performed at the referring institution and reviewed at [facility] is focally up to ~30%. NOTE: While diffuse synaptophysin and chromogranin expression is unusual for conventional thymic carcinoma, the overall histomorphology and immunophenotype is most in keeping with THYMIC SQUAMOUS CARCINOMA.?The extent of PAX8 and CD117 staining would be unusual for Nut carcinoma. B. MEDIASTINUM, ANTERIOR, 4.5 CM, ULTRASOUND GUIDED FINED NEEDLE ASPIRATION ([id number]; 03/22/17): The cytologic preparations were not reviewed [...] Second opinion with Dr. Roddy Vega in [place]. They reviewed the pathology and concurred they [...] Began chemotherapy with carboplatin plus paclitaxel, s/p [address] chest 08/17/17 - Impression: [...] mass. 3.?Additional findings as above. CT chest 7/18/18 - IMPRESSION: 1. Slight decrease in size of known anterior mediastinal mass, stable superior mediastinal adenopathy and improvement of pleural disease within the left hemithorax. 2. Coronary atherosclerosis. 3. Left atrial enlargement. 2. H/o atrial fibrillation 3. HTN HPI Ms. Jaramillo is seen for evaluation and management of thymic carcinoma. The history is summarized above. She has previously been cared for by Dr. White who has left the institution. This is her first visit with me. On presentation today, she is accompanied by her son Remberto. She is feeling well and has been very busy in the past three weeks. Her recently had a knee replacement and she has been taking himto and from appts, including for PT. She does not have symptoms of anemia, such as dizziness and fatigue, as she has in the past and she was surprised that the Hgb level is 7.0. For the past couple of months she has required intermittent blood transfusions, a total of about 5 units. Her appetite isgood and her weight is stable. She has some mild intermittent symptoms of neuropathy in her fingersand toes. It is not affecting her activities. She does have some fatigue for a couple of days after chemotherapy. No fevers or chills. Soc Hx: , lives in [place], [place] Tob - Never Etoh - rare [...] is normal. Vitals reviewed. Labs: WBC/ANC - 3.09/2209, Hgb/Hct -7.0/21.2, Plts - 76,000. BUN/Cr - 9/0.6. Glucose - 127, Magnesium - 1.1. Lytes and LFTs o/w unremarkable Assessment and Plan: Ms. Jaramillo is a 62 yo female seen for evaluation and continued management of thymic carcinoma, as summarized above. She is receiving therapy with carboplatin and etoposide and has received 14 cycles. She has had significant problems with myelosuppression including anemia and thrombocytopenia. The hemoglobin from today is 7. Although she feels well, we are going to go ahead with a transfusion. Given the low Plts and WBC, this is felt most likely to be chemotherapy related rather than related to another process such as hemolysis. The bilirubin is WNL, arguing against that as well. We have a reticulocyte count to the labs. The transfusion will be given tomorrow. Her magnesium is low. She could not stay for magnesium today and we are going to give 2 grams IV tomorrow. We are going to give her a gram of magnesium here today. She will continue to take PO magnesium. Due to low counts, we will delay the next cycle of therapy from 04/17 to 04/24. I will then see her back with a restaging CT scan. documented in this encounter Miscellaneous Notes * Addendum Note - Shon Coates MD - 04/14/2018 3:00 PM EDTAddended by: SHON COATES on: 04/17/2018 12:26 PM Modules accepted: Orders documented in this encounter Plan of Treatment Upcoming Encounters Date Type Department Care Team (Late st Contact Info) Description 02/24/2024 9:00 AM EDT Office Visit Hematology/Oncology at [address] [phone] Shon Coates MD [facility] [place] [address] HEMATOLOGY AND ONCOLOGY [place], [place] [id number] [phone] 02/24/2024 9:30 AM EDT Infusion Hematology Oncology at [address] [phone] 03/02/2024 11:00 AM EDT Office Visit Hematology/Oncology at [address] [phone] Shon Coates MD [facility] [place] [address] HEMATOLOGY AND ONCOLOGY [place], [place] [address] 03/02/2024 12:30 PM EDT Infusion Hematology Oncology at [address] [phone] 03/09/2024 10:00 AM EDT Office Visit Hematology/Oncology at [address] [phone] Shno Coates MD [facility] [place] [address] [address] [place] [address] 03/09/2024 10:30 AM EDT Infusion Hematology Oncology at [address] [phone] documented as of this encounter Procedures Procedure Name Priority Date/Time Associated Diagnosis Comments LAB SCAN 04/14/2018 12:00 AM EDT LAB SCAN 04/14/2018 12:00 AM EDT documented in this encounter Results * SCAN DOC: LAB (04/14/2018 12:00 AM EDT) Narrative 04/14/2018 12:00 AM EDT Ordered by an unspecified provider. Scanning Provider MEDIA MGR SCAN EXT O RDR/RSLT * SCAN DOC: LAB (04/14/2018 12:00 AM EDT) Narrative 04/14/2018 12:00 AM EDT Ordered by an unspecified provider. 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
--- OUTSIDE RECORDS SUMMARY | 2024-02-24 01:26 | XMS_ITS | Encounter Summary ---
Author Organization [facility] [place] [address] Care Team Providers Care Conference Assistant Name Role Phone Gloria Red MD Primary Care Provider [phone] Reason for Visit * Reason Comments Chemotherapy Cycle 13 Day 1 * Treatment/Therapy Plan Authorization (Routine) - Closed Specialty Diagnoses / Procedures Referred By Franklyn del rio Referred To Contact Hematology and Oncology Diagnoses Thymic carcinoma Procedures TC PALONOSETRON HCL, 25MCG, INJECTION (ALOXI) TC FOSAPREPITANT, 1MG, INJECTION (EMEND) TC CARBOPLATIN, 50MG, INJECTION (PARAPLATIN) TC PACLITAXEL, 1MG, INJ TC PEGFILGRASTIM, 6MG, INJECTION Jerrod White MD [address] [place] [id number] [facility] Hem Onc Office [address] [place] [phone] Referral ID Status Reason Start Date Expiration Date Visits Re quested Visits Authorized [id number] Closed 05/27/2017 08/26/2018 18 18 Encounter Details Date Type Department Care Team (Late st Contact Info) Description 02/06/2018 9:30 AM EDT Infusion Hematology Oncology at [address] [phone] Thymic carcinoma Social History Tobacco Use Types Packs/Day Years Used Date Smoking Tobacco: Never Smokeless Tobacco: Never Sex and Gender Information Value Date Recorded Sex Assigned at Not on file Gender Identity Not on file Sexual Orientation Not on file documented as of this encounter Progress Notes * Indigo Price RN - 02/06/2018 9:30 AM EDT INFUSION THERAPY ADMINISTRATION NOTES DIAGNOSIS: Thymic carcinoma CYCLE # 12, Day 1 REASON FOR VISIT: Carbo/Taxol infusion SUBJECTIVE Monica offers no complaints. OBJECTIVE LAB DATA: WNL for today's infusion. Seen by Gunnar & cleared for treatment. IV ACCESS: Mediport Pre administration: Chemotherapy orders independently verified for drug name, route, and dosage per patient's height, weight and BSA by Paula CORTES & On-site pharmacist. REACTIONS (DESCRIPTION, TIME, INTERVENTION AND EFFECTIVENESS) none ASSESSMENT Monica was awake, alert and tolerated treatment well. PLAN Return to clinic per routine. documented in this encounter Plan of Treatment Upcoming Encounters Date Type Department Care Team (Late st Contact Info) Description 02/24/2024 9:00 AM EDT Office Visit Hematology/Oncology at [address] [phone] Shon Schneider MD [facility] [place] [address] [address] [place] [address] 02/24/2024 9:30 AM EDT Infusion Hematology Oncology at [address] [phone] 03/02/2024 11:00 AM EDT Office Visit Hematology/Oncology at [address] [phone] Shon Schneider MD [facility] [place] [address] Ci[address] Pitts [address] HEMATOLOGY AND ONCOLOGY [place], [place] [phone] 03/02/2024 12:30 PM EDT Infusion Hematology Oncology at [address] [phone] 03/09/2024 10:00 AM EDT Office Visit Hematology/Oncology at [address] [phone] Shon Schneider MD [facility] [place] [address] Ciara Pitts APRN [address] [place] [address] DR HEMATOLOGY AND ONCOLOGY [place], [place] [phone] 03/09/2024 10:30 AM EDT Infusion Hematology Oncology at [address] [phone] documented as of this encounter Visit Diagnoses Diagnosis 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 documented in this encounter Administered Medications Inactive Administered Medications - up to 3 most recent administrations Medication Order MAR Action Action Date Dose Rate Site aprepitant (CINVANTI) injection Emul 130 mg 130 mg, Intravenous, Administer over 2 Minutes, ONCE, 1 dose, On Tue02/06/18 at 0915, Alternative administration of IV push over 2 minutes is a recommendation from the dental nurse., Routine Given 02/06/2018 9:28 AM EDT 130 mg CARBOplatin (PARAPLATIN) 900 mg in dextrose 5% 340 mL chemo infusion 900 mg (Target AUC = 6), Intravenous, ONCE, 1 dose, On Tue02/06/18 at 1015, Administer over 30 Minutes, Hold Parameters: CARBOplatin, Call provider for serum creatinine less than (mg/dL): .2, Call provider for serum creatinine greater than (mg/dL): 2, External serum creatinine results used to calculate dose? Yes, Enter serum creatinine value (mg/dL): .5, Enter serum creatinine result date: 05/26/2017 New Bag 02/06/2018 2:26 PM EDT 900 mg 680 mL/hr dexamethasone (DECADRON) injection 10 mg 10 mg, Intravenous, ONCE, 1 dose, On Tue02/06/18 at 0915, Administer 30 minutes prior to PACLitaxel Given 02/06/2018 9:35 AM EDT 10 mg diphenhydrAMINE (BENADRYL) injection 25 mg 25 mg, Intravenous, ONCE, 1 dose, On Tue02/06/18 at 0915, Administer 30 minutes prior to PACLitaxel, Routine Given 02/06/2018 9:39 AM EDT 25 mg famotidine (PEPCID) injection 20 mg 20 mg, Intravenous, ONCE, 1 dose, On Tue02/06/18 at 0915, Administer 30 minutes prior to PACLitaxel Given 02/06/2018 9:42 AM EDT 20 mg heparin, porcine 100 unit/mL flush 500 Units 500 Units, Intravenous, ONCE PRN, Starting on Tue02/06/18 at 0858, Until Tue02/06/18 at 1836, Line Care, Refer to Intravenous (IV) Procedure: Accessing Implanted Vascular Access Devices (934) procedure and/or Intravenous (IV) Job Aid: Adult Flushing & Catheter Care (0999) job aid for additional information regarding guidelines and administration., Routine Given 02/06/2018 3:00 PM EDT 500 Units magnesium sulfate 1g in dextrose 5% 100mL 1 g, Intravenous, ONCE, 1 dose, On Tue02/06/18 at 0915, Administer over 60 Minutes New Bag 02/06/2018 9:45 AM EDT 1 g 100 mL/hr PACLitaxel (TAXOL) 480 mg in dextrose 5% Non-PVC 580 mL chemo infusion 480 mg (200 mg/m2/dose ? 2.4 m2 Treatment Plan BSA from Recorded weight), Intravenous, ONCE, 1 dose, On Tue02/06/18 at 1015, Administer over 3 Hours, Warning Vesicant/Irritant Medication New Bag 02/06/2018 10:58 AM EDT 480 mg 193.3 mL/hr palonosetron (ALOXI) injection 0.25 mg 0.25 mg, Intravenous, ONCE, 1 dose, On Tue02/06/18 at 0915, Administer over 30 seconds. Administer prior to chemotherapy, Routine Given 02/06/2018 9:45 AM EDT 0.25 mg pegfilgrastim (NEULASTA ONPRO) injection kit 6 mg, Subcutaneous, ONCE, 1 dose, On Tue02/06/18 at 1030, Allow the prefilled syringe co-packaged with the on-body injector to reach room temperature at least 30 minutes prior to administration., Routine, This agent is restricted to outpatient use. Is this drug being given as an outpatient? Yes Given 02/06/2018 3:27 PM EDT 6 mg sodium chloride 0.9 % flush 5-20 mL 5-20 mL, Intravenous, EVERY 1 MIN PRN, Starting on Tue02/06/18 at 0858, Until Tue02/06/18 at 1836, Line Care, Flush pertains to all indwelling lines. Flush per protocol found in the job aid using the link provided on this medication record. Refer to Intravenous (IV) Job Aid: Adult Flushing & Catheter Care (0640) job aid for additional information regarding guidelines and administration., Routine Given 02/06/2018 3:00 PM EDT 20 mLs documented in this encounter Care Teams Conference Assistant Relationship Specialty Start Date End Date Gloria Red MD [address] [place] [address] [place] [address] PCP - General Family Medicine 05/26/17 12/03/18 documented as of this encounter
--- OUTSIDE RECORDS SUMMARY | 2024-02-24 01:26 | XMS_ITS | Encounter Summary ---
Author Organization [facility] [place] [address] Care Team Providers Care Customer Service Administrator Name Role Phone Gloria Red MD Primary Care Provider Encounter Details Date Type Department Care Team (Late st Contact Info) Description 02/06/2018 8:45 AM EDT Office Visit Hematology/Oncology at [address] [phone] eDsire Curran, INJURY PREVENTION COORDINATOR [address] [facility] [place] [address] Thymic carcinoma Social History Tobacco Use Types Packs/Day Years Used Date Smoking Tobacco: Never Smokeless Tobacco: Never Sex and Gender Information Value Date Recorded Sex Assigned at Not on file Gender Identity Not on file Sexual Orientation Not on file documented as of this encounter Last Filed Vital Signs Vital Sign Reading Time Taken Comments Blood Pressure 131/85 02/06/2018 8:30 AM EDT Pulse 88 02/06/2018 8:30 AM EDT Temperature 36.7 ??C (98.1 ??F) 02/06/2018 8:30 AM ED T Respiratory Rate 17 02/06/2018 8:30 AM EDT Oxygen Saturation 100% 02/06/2018 8:30 AM EDT Inhaled Oxygen Concentration - - Weight 122.5 kg (270 lb) 02/06/2018 8:30 AM EDT Height 176.5 cm (5' 9.49) 02/06/2018 8:30 AM ED T Body Mass Index 39.31 02/06/2018 8:30 AM EDT documented in this encounter Progress Notes * Desire Curran, INJURY PREVENTION COORDINATOR - 02/06/2018 8:45 AM EDT Diagnosis: 1) 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 Overall she is doing exceptionally well. Appetite and energy are good. No leg cramping or dizziness or other signs of low Mg. She is doing all her ADLs and getting out. Past medical history and social history reviewed and unchanged Past Medical History: Diagnosis Date ??? Atrial [...] and wheezing. Cardiovascular: Negative for chest pain, palpitations; does have some LE edema during the day that subsides overnight. Gastrointestinal: Negative for nausea, vomiting, abdominal pain, diarrhea, constipation and abdominal distention. Occas has loose stools secondary to Mg supplement Genitourinary: Negative for dysuria and difficulty urinating. Musculoskeletal: Negative. Skin: Negative. Neurological: Negative except for some very subtle numbness in her left hand and right foot. Both are stable and neither get in the way of her ADLs. Hematological: Negative for adenopathy. BP 131/85 (Patient Position: Sitting) Pulse 88 Temp 36.7 ??C (98.1 ??F) (Oral) Resp 17 Ht 176.5 cm (5' 9.49) Wt 122.5 kg (270 lb) SpO2 100% BMI 39.31 kg/m2 Wt Readings from Last 3 Encounters: 02/06/18 122.5 kg (270 lb) 01/16/18 121.1 kg (267 lb) 01/02/18 121.1 kg (267 lb) Physical Exam Constitutional: She is oriented to person, place, and time. She appears well- developed and well-nourished. HENT: Head: Normocephalic. Nose: Nose normal. Mouth/Throat: No oropharyngeal exudate. Eyes: Conjunctivae are normal. Pupils are equal, round, and reactive to light. Neck: Normal range of motion. Neck supple. Pulmonary/Chest: Effort normal. She has decreased breath sounds in the right upper field. Abdominal: Soft. She exhibits no distension and no mass. There is no tenderness. There is no guarding. Musculoskeletal: Normal range of motion. She exhibits no edema. Lymphadenopathy: She has no cervical adenopathy. Neurological: She is alert and oriented to person, place, and time. Skin: Skin is warm and dry. Psychiatric: She has a normal mood and affect. Her behavior is normal. Lab: 02/06/18 CBC: WBC 2.94 hemoglobin 8.3 platelets 101 ANC 1.49 CMP: Sodium 139 potassium 3.7 BUN 9 creatinine 0.75 glucose 107 calcium 8.6 magnesium 1.4 total bili 0.6 AST 15 ALT 14 alk phos 51 total protein 7.5 albumin 3.4 ONCBCN ONCOLOGY (AMB) 01/16/2018 Day, Cycle Day 1, Cycle 11 CARBOplatin (PARAPLATIN) IV 900 mg PACLitaxel (TAXOL) IV 200 mg/m2/dose = 480 mg pegfilgrastim (NEULASTA) SubQ 6 mg Assessment/plan: Kaley is tolerating her carboplatinum and Taxol exceptionally well with respect to s/e of treatmenthowever her blood counts are a bit concerning. Her WBC is low despite neulasta however this has been given d1 of treatment. I will switch it out to OnPro to give it 24hrs later and see if this gives her a bit more benefit as theoretically the chemo could be affecting some early WBCs stimulated by the shot. She will also likely need a transfusion again next cycle and she would like to have that again at [facility]. She will get IV Mg today and I have asked her to increase her oral Mgto TID as long as she tolerates it without excessive loose stools or nausea. She is no longer symptomatic from the low Mg so if she needs to back down to 2 daily then we can continue with periodic IVsupplementation. Plan on continuing on at least with another 3 cycles of treatment before restagingwith another scan at [facility]. Desire Curran, MSN, MIX HOUSE OPERATOR, AOCN Hematology/Oncology Nurse Practitioner [place], [place] [phone] documented in this encounter Plan of Treatment Upcoming Encounters Date Type Department Care Team (Late st Contact Info) Description 02/24/2024 9:00 AM EDT Office Visit Hematology/Oncology at [address] [phone] Shon Schneider MD [facility] [place] [place] [address] Ciara Pitts APRN [address] [place] [address] DR [place] [address] 02/24/2024 9:30 AM EDT Infusion Hematology Oncology at [address] [phone] 03/02/2024 11:00 AM EDT Office Visit Hematology/Oncology at [address] [phone] Shon Schneider MD [facility] [place] [address] [place] [address] 03/02/2024 12:30 PM EDT Infusion Hematology Oncology at [address] [phone] 03/09/2024 10:00 AM EDT Office Visit Hematology/Oncology at [address] [phone] Shon Schneider MD [facility] [place] [address] [address] HEMATOLOGY AND ONCOLOGY [place], [place] [address] 03/09/2024 10:30 AM EDT Infusion Hematology Oncology at [address] [phone] documented as of this encounter Visit Diagnoses Diagnosis 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 documented in this encounter Care Teams Customer Service Administrator Relationship Specialty Start Date End Date Gloria Red MD [address] [place] [address] [place] [address] PCP - General Family Medicine 05/26/17 12/03/18 documented as of this encounter
--- OUTSIDE RECORDS SUMMARY | 2024-02-24 01:26 | XMS_ITS | Encounter Summary ---
Author Organization [facility] [place] [address] Care Team Providers Care [employer] Professional Name Role Phone Gloria Red MD Primary Care Provider [phone] Reason for Visit * Reason Comments Chemotherapy Cycle 6 Day 1 Carbo/ Taxol * Treatment/Therapy Plan Authorization (Routine) - Closed Specialty Diagnoses / Procedures Referred By Franklyn del rio Referred To Contact Hematology and Oncology Diagnoses Thymic carcinoma Procedures TC PALONOSETRON HCL, 25MCG, INJECTION (ALOXI) TC FOSAPREPITANT, 1MG, INJECTION (EMEND) TC CARBOPLATIN, 50MG, INJECTION (PARAPLATIN) TC PACLITAXEL, 1MG, INJ TC PEGFILGRASTIM, 6MG, INJECTION Jerrod White MD [address] [place] [address] [facility] Hem Onc Office [address] [place] [phone] Referral ID Status Reason Start Date Expiration Date Visits Re quested Visits Authorized [id number] Closed 05/27/2017 08/26/2018 18 18 Encounter Details Date Type Department Care Team (Late st Contact Info) Description 09/13/2017 8:30 AM EDT Infusion Hematology Oncology at [address] [phone] Thymic carcinoma Social History Tobacco Use Types Packs/Day Years Used Date Smoking Tobacco: Never Smokeless Tobacco: Never Sex and Gender Information Value Date Recorded Sex Assigned at Not on file Gender Identity Not on file Sexual Orientation Not on file documented as of this encounter Progress Notes * Eden Vieira RN - 09/13/2017 8:30 AM EDT INFUSION THERAPY ADMINISTRATION NOTES DIAGNOSIS: Thymic carcinoma CYCLE # 6, Day 1 REASON FOR VISIT: Carbo/Taxol infusion & Neulasta SUBJECTIVE Monica offers no complaints. OBJECTIVE LAB DATA: WNL, reviewed by Gina White. IV ACCESS: Mediport Pre administration: Chemotherapy orders independently verified for drug name, route, and dosage per patient's height, weight and BSA by Eden Vieira, RN & [facility] on site. Neulasta given in the right arm. REACTIONS (DESCRIPTION, TIME, INTERVENTION AND EFFECTIVENESS) none ASSESSMENT Monica was awake, alert and tolerated treatment well. PLAN Return to clinic as scheduled.. documented in this encounter Plan of Treatment Upcoming Encounters Date Type Department Care Team (Late st Contact Info) Description 02/24/2024 9:00 AM EDT Office Visit Hematology/Oncology at [address] [phone] Shon Schneider MD [facility] [place] [address] Ciara Pitts [address] [place] [address] 02/24/2024 9:30 AM EDT Infusion Hematology Oncology at [address] [phone] 03/02/2024 11:00 AM EDT Office Visit Hematology/Oncology at [address] [phone] Shon Schneider MD [facility] [place] [address] Ciara Pitts [address] HEMATOLOGY AND ONCOLOGY [place], [place] [id number] 03/02/2024 12:30 PM EDT Infusion Hematology Oncology at [address] [phone] 03/09/2024 10:00 AM EDT Office Visit Hematology/Oncology at [address] [phone] Shon Schneider MD [facility] [place] [address] HEMATOLOGY AND ONCOLOGY [place], [place] [phone] 03/09/2024 10:30 AM EDT Infusion Hematology Oncology at [address] [phone] documented as of this encounter Visit Diagnoses [...] = 6), Intravenous, ONCE, 1 dose, On Tue09/13/17 at 1000, Administer over 30 Minutes, Hold Parameters: CARBOplatin, Call provider for serum creatinine less than (mg/dL): .2, Call provider for serum creatinine greater than (mg/dL): 2, External serum creatinine results used to calculate dose? Yes, Enter serum creatinine value (mg/dL): .5, Enter serum creatinine result date: 05/26/2017 New Bag 09/13/2017 1:10 PM EDT 900 mg 680 mL/hr dexamethasone (DECADRON) injection 10 mg 10 mg, Intravenous, ONCE, 1 dose, On Tue09/13/17 at 0900, Administer 30 minutes prior to PACLitaxel Given 09/13/2017 9:03 AM EDT 10 mg diphenhydrAMINE (BENADRYL) injection 25 mg 25 mg, Intravenous, ONCE, 1 dose, On Tue09/13/17 at 0900, Administer 30 minutes prior to PACLitaxel, Routine Given 09/13/2017 9:05 AM EDT 25 mg famotidine (PEPCID) injection 20 mg 20 mg, Intravenous, ONCE, 1 dose, On Tue09/13/17 at 0900, Administer 30 minutes prior to PACLitaxel Given 09/13/2017 9:08 AM EDT 20 mg fosaprepitant (EMEND) 150 mg in sodium chloride 0.9% 255 mL infusion 150 mg, Intravenous, at 510 mL/hr, Administer over 30 Minutes, ONCE, 1 dose, On Tue09/13/17 at 0900, Routine New Bag 09/13/2017 9:13 AM EDT 150 mg 510 mL/hr heparin, porcine 100 unit/mL flush 500 Units 500 Units, Intravenous, ONCE PRN, Starting on Tue09/13/17 at 0838, Until Tue09/13/17 at 1601, Line Care, Refer to Intravenous (IV) Procedure: Accessing Implanted Vascular Access Devices (494) procedure and/or Intravenous (IV) Job Aid: Adult Flushing & Catheter Care (2476) job aid for additional information regarding guidelines and administration., Routine Given 09/13/2017 1:45 PM EDT 500 Units PACLitaxel (TAXOL) 480 mg in sodium chloride 0.9% Non-PVC 580 mL chemo infusion 480 mg (200 mg/m2/dose ? 2.4 m2 Treatment Plan BSA from Recorded weight), Intravenous, ONCE, 1 dose, On Tue09/13/17 at 1000, Administer over 3 Hours, Warning Vesicant/Irritant Medication New Bag 09/13/2017 9:53 AM EDT 480 mg 193 mL/hr palonosetron (ALOXI) injection 0.25 mg 0.25 mg, Intravenous, ONCE, 1 dose, On Tue09/13/17 at 0900, Administer over 30 seconds. Administer prior to chemotherapy, Routine Given 09/13/2017 9:09 AM EDT 0.25 mg pegfilgrastim (NEULASTA) injection 6 mg 6 mg, Subcutaneous, ONCE, 1 dose, On Tue09/13/17 at 0900, Bring to room temperature 15-30 mins before administration. , Routine Given 09/13/2017 1:45 PM EDT 6 mg Right Arm sodium chloride 0.9 % flush 5-20 mL 5-20 mL, Intravenous, EVERY 1 MIN PRN, Starting on Tue09/13/17 at 0838, Until Tue09/13/17 at 1601, Line Care, Flush pertains to all indwelling lines. Flush per protocol found in the job aid using the link provided on this medication record. Refer to Intravenous (IV) Job Aid: Adult Flushing & Catheter Care (3681) job aid for additional information regarding guidelines and administration., Routine Given 09/13/2017 1:45 PM EDT 20 mLs documented in this encounter Care Teams [employer] Professional Relationship Specialty Start Date End Date Gloria Red MD [address] [place] [address] [place] [address] PCP - General Family Medicine 05/26/17 12/03/18 documented as of this encounter
--- OUTSIDE RECORDS SUMMARY | 2024-02-24 01:26 | XMS_ITS | Encounter Summary ---
Author Organization [facility] [place] [address] Care Team Providers Care Plant Inspector Name Role Phone Gloria Red MD Primary Care Provider [phone] Reason for Visit * Reason Comments Chemotherapy Carbo/Taxol, Cycle 7 , Day 1 * Treatment/Therapy Plan Authorization (Routine) - Closed Specialty Diagnoses / Procedures Referred By Contdelphine t Referred To Contact Hematology and Oncology Diagnoses Thymic carcinoma Procedures TC PALONOSETRON HCL, 25MCG, INJECTION (ALOXI) TC FOSAPREPITANT, 1MG, INJECTION (EMEND) TC CARBOPLATIN, 50MG, INJECTION (PARAPLATIN) TC PACLITAXEL, 1MG, INJ TC PEGFILGRASTIM, 6MG, INJECTION Jerrod White MD [address] [place] [address] [facility] Hem Onc Office [address] [place] [phone] Referral ID Status Reason Start Date Expiration Date Visits Re quested Visits Authorized [id number] Closed 05/27/2017 08/26/2018 18 18 Encounter Details Date Type Department Care Team ([facility] st Contact Info) Description 10/03/2017 10:00 AM EDT Infusion Hematology Oncology at [address] [phone] Thymic carcinoma Social History Tobacco Use Types Packs/Day Years Used Date Smoking Tobacco: Never Smokeless Tobacco: Never Sex and Gender Information Value Date Recorded Sex Assigned at Not on file Gender Identity Not on file Sexual Orientation Not on file documented as of this encounter Progress Notes * Marguerite Calvo RN - 10/03/2017 10:00 AM EDT INFUSION THERAPY ADMINISTRATION NOTES DIAGNOSIS: Thymic carcinoma CYCLE # 7, Day 1 REASON FOR VISIT: Carbo/Taxol infusion SUBJECTIVE Monica offers no complaints. OBJECTIVE LAB DATA: WNL for today's infusion. Seen by Dr. White. IV ACCESS: Mediport Pre administration: Chemotherapy orders independently verified for drug name, route, and dosage per patient's height, weight and BSA by Marguerite Calvo RN & [facility]. REACTIONS (DESCRIPTION, TIME, INTERVENTION AND EFFECTIVENESS) none ASSESSMENT Monica was awake, alert and tolerated treatment well. PLAN Return to clinic per routine. documented in this encounter Plan of Treatment Upcoming Encounters Date Type Department Care Team (Late st Contact Info) Description 02/24/2024 9:00 AM EDT Office Visit Hematology/Oncology at [address] [phone] Shon Schneider MD [facility] [place] [address] [address] [place] [address] 02/24/2024 9:30 AM EDT Infusion Hematology Oncology at [address] [phone] 03/02/2024 11:00 AM EDT Office Visit Hematology/Oncology at [address] [phone] Shon Schneider MD [facility] [place] [address] Ciara Pitts [address] HEMATOLOGY AND ONCOLOGY [place], [place] [address] 03/02/2024 12:30 PM EDT Infusion Hematology Oncology at [address] [phone] 03/09/2024 10:00 AM EDT Office Visit Hematology/Oncology at [address] [phone] Shon Schneider MD [facility] [place] [address] Ciara Pitts [address] HEMATOLOGY AND ONCOLOGY [place], [place] [phone] 03/09/2024 10:30 AM EDT Infusion Hematology Oncology at [address] [phone] documented as of this encounter Visit Diagnoses [...] = 6), Intravenous, ONCE, 1 dose, On Tue10/03/17 at 1100, Administer over 30 Minutes, Hold Parameters: CARBOplatin, Call provider for serum creatinine less than (mg/dL): .2, Call provider for serum creatinine greater than (mg/dL): 2, External serum creatinine results used to calculate dose? Yes, Enter serum creatinine value (mg/dL): .5, Enter serum creatinine result date: 05/26/2017 New Bag 10/03/2017 2:20 PM EDT 900 mg 680 mL/hr dexamethasone (DECADRON) injection 10 mg 10 mg, Intravenous, ONCE, 1 dose, On Tue10/03/17 at 1000, Administer 30 minutes prior to PACLitaxel Given 10/03/2017 9:56 AM EDT 10 mg diphenhydrAMINE (BENADRYL) injection 25 mg 25 mg, Intravenous, ONCE, 1 dose, On Tue10/03/17 at 1000, Administer 30 minutes prior to PACLitaxel, Routine Given 10/03/2017 10:06 AM EDT 25 mg famotidine (PEPCID) injection 20 mg 20 mg, Intravenous, ONCE, 1 dose, On Tue10/03/17 at 1000, Administer 30 minutes prior to PACLitaxel Given 10/03/2017 10:04 AM EDT 20 mg fosaprepitant (EMEND) 150 mg in sodium chloride 0.9% 255 mL infusion 150 mg, Intravenous, at 510 mL/hr, Administer over 30 Minutes, ONCE, 1 dose, On Tue10/03/17 at 1000, Routine New Bag 10/03/2017 10:15 AM EDT 150 mg 510 mL/hr heparin, porcine 100 unit/mL flush 500 Units 500 Units, Intravenous, ONCE PRN, Starting on Tue10/03/17 at 0935, Until Tue10/03/17 at 1710, Line Care, Refer to Intravenous (IV) Procedure: Accessing Implanted Vascular Access Devices (203) procedure and/or Intravenous (IV) Job Aid: Adult Flushing & Catheter Care (8343) job aid for additional information regarding guidelines and administration., Routine Given 10/03/2017 2:50 PM EDT 500 Units PACLitaxel (TAXOL) 480 mg in sodium chloride 0.9% Non-PVC 580 mL chemo infusion 480 mg (200 mg/m2/dose ? 2.4 m2 Treatment Plan BSA from Recorded weight), Intravenous, ONCE, 1 dose, On Tue10/03/17 at 1100, Administer over 3 Hours, Warning Vesicant/Irritant Medication New Bag 10/03/2017 10:57 AM EDT 480 mg 193 mL/hr palonosetron (ALOXI) injection 0.25 mg 0.25 mg, Intravenous, ONCE, 1 dose, On Tue10/03/17 at 1000, Administer over 30 seconds. Administer prior to chemotherapy, Routine Given 10/03/2017 9:54 AM EDT 0.25 mg pegfilgrastim (NEULASTA) injection 6 mg 6 mg, Subcutaneous, ONCE, 1 dose, On Tue10/03/17 at 1000, Bring to room temperature 15-30 mins before administration. , Routine Given 10/03/2017 2:21 PM EDT 6 mg Right Arm sodium chloride 0.9 % flush 5-20 mL 5-20 mL, Intravenous, EVERY 1 MIN PRN, Starting on Tue10/03/17 at 0935, Until Tue10/03/17 at 1710, Line Care, Flush pertains to all indwelling lines. Flush per protocol found in the job aid using the link provided on this medication record. Refer to Intravenous (IV) Job Aid: Adult Flushing & Catheter Care (9278) job aid for additional information regarding guidelines and administration., Routine Given 10/03/2017 2:50 PM EDT 20 mLs documented in this encounter Care Teams Plant Inspector Relationship Specialty Start Date End Date Gloria Red MD [address] [place] [address] [place] [phone] PCP - General Family Medicine 05/26/17 12/03/18 documented as of this encounter
--- OUTSIDE RECORDS SUMMARY | 2024-02-24 01:26 | XMS_ITS | Encounter Summary ---
Author Organization [facility] [place] [address] Care Team Providers Care Park Attendant Name Role Phone Gloria Red MD Primary Care Provider Reason for Visit * Reason Comments Cancer Encounter Details Date Type Department Care Team (Late st Contact Info) Description 11/21/2017 8:00 AM EDT Office Visit Hematology/Oncology at [address] [phone] Jerrod White MD [address] [place] [address] Thymic carcinoma Social History Tobacco Use Types Packs/Day Years Used Date Smoking Tobacco: Never Smokeless Tobacco: Never Sex and Gender Information Value Date Recorded Sex Assigned at Not on file Gender Identity Not on file Sexual Orientation Not on file documented as of this encounter Last Filed Vital Signs Vital Sign Reading Time Taken Comments Blood Pressure 122/85 11/21/2017 8:12 AM EDT Pulse 80 11/21/2017 8:12 AM EDT Temperature 37.1 ??C (98.8 ??F) 11/21/2017 8:12 AM ED T Respiratory Rate 16 11/21/2017 8:12 AM EDT Oxygen Saturation 100% 11/21/2017 8:12 AM EDT Inhaled Oxygen Concentration - - Weight 116.6 kg (257 lb) 11/21/2017 8:12 AM EDT Height 176.5 cm (5' 9.49) 11/21/2017 8:12 AM ED T copied Body Mass Index 37.42 11/21/2017 8:12 AM EDT documented in this encounter Progress Notes * Jerrod White MD - 11/21/2017 8:00 AM EDT Diagnosis: 1) 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 Past medical history and social history reviewed [...] upon request. Final classification is deferred to resection.?Director Credit Risk slides of this case were reviewed at the intradepartmental consultation conference. Immunoperoxidase stains were performed on this case to further characterize the lesion. ANTIBODY(CLONE)(BLOCK):RESULT Ckit (CD117) (EP10, Leica) (2): Positive CD5 (Rabbit Monoclonal, clone SP19, [employer] Scientific) (2): Positive PAX-8 (MRQ-50, Otho) (2): Positive P40 (BC28, Otho) (2): Positive Keratin AE1-AE3 (AE1-AE3, Biocare) (2): Positive Chromogranin (LK2H10, Otho) (2): Positive Synaptophysin (27G12, Leica) (2): Positive MIB-1 (DAKO) (MIB-1, Dako) (2): 5-15% nuclei positive CK7 (RN7, Leica) (2): Negative CK20 (Ks20.8, Leica) (2): Negative TTF-1 (8G7G3/1, Otho) (2): Negative GATA3 (L50-823, Otho) (2): Negative CD34 (QBEnd/10, Leica) (2): Negative CASE: [id number] Second Opinion PATIENT: BRAYAN PIERRE [facility] Department of Pathology [address] [place], [place] [address]IA License No.: [id number] Photographer Scientific: Dr. Juan Jose Mcleod Physician: EDVNI SYED M.D. Resident: Natali Flores?Kaylah Calle, Ph.D. Pathologist:? Bhargavi Gil M.D. PATHOLOGIC DIAGNOSIS: CONSULT SLIDES FROM [facility]; [place], [place]: A. MEDIASTINUM, MASS, BIOPSY ([id number]; 03/22/2017): ? 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 ?Immunohistochemistry performed at the outside institution and reviewed ?at [facility] demonstrates the following staining profile in lesional cells: ? Positive - AE1/AE3, p40, PAX8, CD117, CD5(multifocal), ?CK7(scattered cells), synaptophysin, chromogranin ? Negative - CK20, TTF-1, GATA3, CD34 ? The immunohistochemical profile supports the above diagnosis. ? Ki67 (MIB-1) proliferation index performed at the referring ?institution and reviewed at [facility] [...] chain myosin and P63, confirming their benign nature.?Director Credit Risk slides of this case were reviewed at the intradepartmental consultation conference.?(Dr. Bond)/mpl NM PET CT EYE TO THIGH?04/18/2017 2:03 PM Signs and Symptoms/Comments:? C7A.8-Other malignant neuroendocrine tumors (HCC)-ICD-10 Y68-[id number] neoplasm of thymus (HCC)-ICD-10; thymic squamous cell ca, thymic neuroendocrine tumor, vertebral body lesions concerning for mets . Comparison: CT of the abdomen and pelvis from 03/23/2017, CT of the chest from 03/18/2017, ultrasound guided breast biopsy from 03/25/2017 Technique: Approximately 91 minutes following the IV injection of 15 mCi of [id number], 3D TOF PET imaging was obtained from the head to the upper thighs with attenuation correction using a [employer] dedicated closed ring PET / [...] above interpretation and agree with the findings. [facility] ONCOLOGY (AMB) 05/30/2017 Day, Cycle Day [...] left breast mass. 3.?Additional findings as above. The patient's laboratory today is reviewed. White count is 3.45 with an absolute neutrophil count of 1.8 hemoglobin is 9.4 hematocrit 28.6 and platelet count is 152. Electrolytes remain normal with apotassium of 3.8 magnesium is a little higher at 1.3 alkaline phosphatase 51 albumin 3.5 liver tests completely normal with an ALP of 51 Assessment/plan: Brayan is fine today for 06/21 cycle of chemotherapy with carboplatinum and paclitaxel. She is tolerating the treatment well. Her magnesium level remains quite low but in my experience is almost impossible in this clinical situation to get magnesium levels up. Fortunately she is not symptomatic with it with a normal potassium level. That being said I think it is fine for her to continue on the magnesium as she is tolerating it but do not look for this to improve much or be much clinical help. Her blood counts are a bit better with the extra week off and both the white count and hemoglobin have come up a bit. We will go ahead with treatment today with no change in antiemetics plan. It is time to restage her and if her scans are improved or stable I would be for treatment break. It certainly not clear how fast this tumor would progress off treatment and we are going to start having count problems and other problems if we continue on the current treatment. If she had a major response however and there was only a little bit of tumor left I would consider giving her the same chemotherapy for a few more cycles as she does not have any absolute contraindications.It certainly is intriguing to consider a checkpoint inhibitor in a patient that hasa tumor that is 75% PD-L1 positive. I think that would be a very reasonable secondline option. Finally, third line treatment with Sunitinib couldbe considered butresponse rates and side effect profile delegate that to consideration for resistant disease only. Follow-up is scheduled for 3 weeks with lab magnesium level and a CT scan at the [facility]. She will call if there is issues or problems in the interim documented in this encounter Plan of Treatment Upcoming Encounters Date Type Department Care Team (Late st Contact Info) Description 02/24/2024 9:00 AM EDT Office Visit Hematology/Oncology at [address] [phone] Shon Schneider MD [facility] [address] HEMATOLOGY AND ONCOLOGY [place], [place] [address] 02/24/2024 9:30 AM EDT Infusion Hematology Oncology at [address] [phone] 03/02/2024 11:00 AM EDT Office Visit Hematology/Oncology at [address] [phone] Shon Schneider MD [facility] [place] [address] [address] HEMATOLOGY AND ONCOLOGY [place], [place] [phone] 03/02/2024 12:30 PM EDT Infusion Hematology Oncology at [address] [phone] 03/09/2024 10:00 AM EDT Office Visit Hematology/Oncology at [address] [phone] Shon Schneider MD [facility] [place] [address] Ciara Pitts APRN [address] [place] [address] DR [place] [address] 03/09/2024 10:30 AM EDT Infusion Hematology Oncology at [address] [phone] documented as of this encounter Visit Diagnoses Diagnosis 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 documented in this encounter Care Teams Park Attendant Relationship Specialty Start Date End Date Gloria Red MD [address] [place] [address] [place] [phone] PCP - General Family Medicine 05/26/17 12/03/18 documented as of this encounter
--- OUTSIDE RECORDS SUMMARY | 2024-02-24 01:26 | XMS_ITS | Encounter Summary ---
Author Organization [facility] [place] [address] Care Team Providers Care Corporate Lawyer Name Role Phone Gloria Red MD Primary Care Provider Reason for Visit * Reason Comments Cancer Encounter Details Date Type Department Care Team (Late st Contact Info) Description 10/24/2017 8:00 AM EDT Office Visit Hematology/Oncology at [address] [phone] Jerrod White MD [address] [place] [phone] Thymic carcinoma Social History Tobacco Use Types Packs/Day Years Used Date Smoking Tobacco: Never Smokeless Tobacco: Never Sex and Gender Information Value Date Recorded Sex Assigned at Not on file Gender Identity Not on file Sexual Orientation Not on file documented as of this encounter Last Filed Vital Signs Vital Sign Reading Time Taken Comments Blood Pressure 113/79 10/24/2017 8:04 AM EDT Pulse 75 10/24/2017 8:04 AM EDT Temperature 37.1 ??C (98.8 ??F) 10/24/2017 8:04 AM ED T Respiratory Rate 18 10/24/2017 8:04 AM EDT Oxygen Saturation 100% 10/24/2017 8:04 AM EDT Inhaled Oxygen Concentration - - Weight 118.4 kg (261 lb) 10/24/2017 8:04 AM EDT Height 176.5 cm (5' 9.49) 10/24/2017 8:04 AM ED T copied Body Mass Index 38 10/24/2017 8:04 AM EDT documented in this encounter Progress Notes * Jerrod White MD - 10/24/2017 8:00 AM EDT Diagnosis: 1) 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 She is continuing to tolerate the chemotherapy well with no neuropathy symptoms and only some mild fatigue for a few days posttreatment. This past cycle however was complicated by an admission for neutropenic fever. She was placed on antibiotics but no apparent bacterial infectionwas found although she did end up testing positive for influenza A. Her counts recovered quickly and she recovered as well. She has been feeling well this past week with no symptoms or problems and feels like her breathing is fine and everything is going quite well for her. We had talked about restaging her after 9 cycles of treatment. We did discuss whether or not to put her on prophylactic antibiotics but without anything to suggest a underlying bacterial infection I prefer not to do that. Anadditional problem that came up was she was noted to be hypomagnesemic. We will supplement her treatment today with some additional magnesium and she is on that orally now and tolerating it reasonably well. Review of systems is otherwise negative. Is not having rash no orthopnea dyspnea on exertionor other difficulties. Past medical history and social history reviewed [...] upon request. Final classification is deferred to resection.?Roustabout Supervisor slides of this case were reviewed at the intradepartmental consultation conference. Immunoperoxidase stains were performed on this case to further characterize the lesion. ANTIBODY(CLONE)(BLOCK):RESULT Ckit (CD117) (EP10, Leica) (2): Positive CD5 (Rabbit Monoclonal, clone SP19, Thermo Scientific) (2): Positive PAX-8 (MRQ-50, Chelsea) (2): Positive P40 (BC28, Chelsea) (2): Positive Keratin AE1-AE3 (AE1-AE3, Biocare) (2): Positive Chromogranin (LK2H10, Chelsea) (2): Positive Synaptophysin (27G12, Leica) (2): Positive MIB-1 (DAKO) (MIB-1, Dako) (2): 5-15% nuclei positive CK7 (RN7, Leica) (2): Negative CK20 (Ks20.8, Leica) (2): Negative TTF-1 (8G7G3/1, Chelsea) (2): Negative GATA3 (L50-823, Chelsea) (2): Negative CD34 (QBEnd/10, Leica) (2): Negative CASE: [id number] Second Opinion PATIENT: MONICA PIERRE [facility] Department of Pathology [address] [place] [address], [place] [address] CLIA License No.: [id number] Process Server: Dr. Juan Jose Mcleod Physician: EDVIN SYED M.D. Resident: Natali Flores?Kaylah Calle, Ph.D. Pathologist:? Bhargavi Gil M.D. PATHOLOGIC DIAGNOSIS: CONSULT SLIDES FROM [facility]; [place], [place]: A. MEDIASTINUM, MASS, BIOPSY ([id number]; 03/22/2017): ? 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 ?Immunohistochemistry performed at the outside institution and reviewed ?at [facility] demonstrates the following staining profile in lesional cells: ? Positive - AE1/AE3, p40, PAX8, CD117, CD5(multifocal), ?CK7(scattered cells), synaptophysin, chromogranin ? Negative - CK20, TTF-1, GATA3, CD34 ? The immunohistochemical profile supports the above diagnosis. ? Ki67 (MIB-1) proliferation index performed at the referring ?institution and reviewed at [facility] is focally up to ~30%. NOTE: [...] chain myosin and P63, confirming their benign nature.?Roustabout Supervisor slides of this case were reviewed at the intradepartmental consultation conference.?(Dr. Bond)/[facility] PET CT EYE TO THIGH?04/18/2017 2:03 PM Signs and Symptoms/Comments:? C7A.8-Other malignant neuroendocrine tumors (HCC)-ICD-10 V38-[id number] neoplasm of thymus (HCC)-ICD-10; thymic squamous cell ca, thymic neuroendocrine tumor, vertebral body lesions concerning for mets . Comparison: CT of the abdomen and pelvis from 03/23/2017, CT of the chest from 03/18/2017, ultrasound guided breast biopsy from 03/25/2017 Technique: Approximately 91 minutes following the IV injection of 15 mCi of L90-nargnhaijxyopmhgbp, 3D TOF PET imaging was obtained from the head to the upper thighs with attenuation correction using a [employer] dedicated closed ring PET / [...] 480 mg pegfilgrastim (NEULASTA) SubQ 6 [facility] 08/22/2017 Day, Cycle Day 1, Cycle 5 CARBOplatin (PARAPLATIN) IV 900 mg PACLitaxel (TAXOL) IV 200 mg/m2/dose = 480 mg pegfilgrastim (NEULASTA) SubQ 6 mg [facility] 09/13/2017 Day, Cycle Day 1, Cycle 6 CARBOplatin (PARAPLATIN) IV 900 mg PACLitaxel (TAXOL) IV 200 mg/m2/dose = 480 mg pegfilgrastim (NEULASTA) SubQ 6 mg [facility] 10/03/2017 Day, Cycle Day 1, [...] left breast mass. 3.?Additional findings as above. Laboratory today shows a white count of 2.98 hemoglobin 8.8 hematocrit 27.3 platelets 144 neutrophil count 1.56 CMP shows normal electrolytes potassium 3.7 creatinine of 0.65 magnesium is 1.0 alkaline phosphatase 47 and liver tests normal albumin is staying quite up at 3.3 Assessment/plan: Monica has a stage-IV thymic carcinoma with [...] that to consideration for resistant disease only. As far as today's treatment goes she is fine with a good white count although she does have some progressive treatment related anemia that may need to be addressed if she becomes symptomatic. We willcontinue to watch that. As noted her magnesium is low and we will add some additional magnesium to treatment. Is not having any neuropathy symptoms in it does look like she is going to be able to tolerate a full 9 cycles before restaging. At some point we will need to give her a treatment break butwill take it on a cycle by cycle basis. We will see her back in 3 weeks time with lab and the magnesium level. She will call if there is issues or problems in the interim. No changes are made to her antiemetics as she is doing well in that regard. Chemo dosing is also left unchanged. documented in this encounter Miscellaneous Notes * Addendum Note - Nathalia Andrade RN - 10/24/2017 8:48 AM EDTAddended by: NATHALIA ANDRADE on: 10/24/2017 08:48 AM Modules accepted: Orders documented in this encounter Plan of Treatment Upcoming Encounters Date Type Department Care Team (Late st Contact Info) Description 02/24/2024 9:00 AM EDT Office Visit Hematology/Oncology at [address] [phone] Shon Schneider MD [facility] [place] [address] Ciara Pitts [address] HEMATOLOGY [place] [address] 02/24/2024 9:30 AM EDT Infusion Hematology Oncology at [address] [phone] 03/02/2024 11:00 AM EDT Office Visit Hematology/Oncology at [address] [phone] Shon Schneider MD [facility] [place] [address] Ciara Pitts [address] HEMATOLOGY [place] [address] 03/02/2024 12:30 PM EDT Infusion Hematology Oncology at [address] [phone] 03/09/2024 10:00 AM EDT Office Visit Hematology/Oncology at [address] [phone] Shon Schneider MD [facility] [place] [address] [address] HEMATOLOGY [place] [address] 03/09/2024 10:30 AM EDT Infusion Hematology Oncology at [address] [phone] documented as of this encounter Visit Diagnoses Diagnosis 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 documented in this encounter Care Teams Corporate Lawyer Relationship Specialty Start Date End Date Gloria Red MD [address] [place] [address] [place] [phone] PCP - General Family Medicine 05/26/17 12/03/18 documented as of this encounter
--- OUTSIDE RECORDS SUMMARY | 2024-02-24 01:26 | XMS_ITS | Encounter Summary ---
Author Organization [facility] [place] [address] Care Team Providers Care Circuits Engineer Name Role Phone Gloria Red MD Primary Care Provider [phone] Reason for Visit * Reason Comments Chemotherapy Carbo Taxol, Cycle 1 4, Day 1 * Treatment/Therapy Plan Authorization (Routine) - Closed Specialty Diagnoses / Procedures Referred By Contdelphine t Referred To Contact Hematology and Oncology Diagnoses Thymic carcinoma Procedures TC PALONOSETRON HCL, 25MCG, INJECTION (ALOXI) TC FOSAPREPITANT, 1MG, INJECTION (EMEND) TC CARBOPLATIN, 50MG, INJECTION (PARAPLATIN) TC PACLITAXEL, 1MG, INJ TC PEGFILGRASTIM, 6MG, INJECTION Jerrod White MD [address] [place] [address] [facility] Hem Onc Office [address] [place] [phone] Referral ID Status Reason Start Date Expiration Date Visits Re quested Visits Authorized [id number] Closed 05/27/2017 08/26/2018 18 18 Encounter Details Date Type Department Care Team ([facility] st Contact Info) Description 03/27/2018 9:00 AM EDT Infusion Hematology Oncology at [address] [phone] Thymic carcinoma Social History Tobacco Use Types Packs/Day Years Used Date Smoking Tobacco: Never Smokeless Tobacco: Never Sex and Gender Information Value Date Recorded Sex Assigned at Not on file Gender Identity Not on file Sexual Orientation Not on file documented as of this encounter Last Filed Vital Signs Vital Sign Reading Time Taken Comments Blood Pressure 113/75 03/27/2018 9:08 AM EDT Pulse 76 03/27/2018 9:08 AM EDT Temperature 36.8 ??C (98.2 ??F) 03/27/2018 9:08 AM ED T Respiratory Rate 18 03/27/2018 9:08 AM EDT Oxygen Saturation 100% 03/27/2018 9:08 AM EDT Inhaled Oxygen Concentration - - Weight 125.1 kg (275 lb 12.8 oz) 03/27/2018 9:08 AM EDT Height 176.5 cm (5' 9.49) 03/27/2018 9:08 AM ED T Body Mass Index 40.16 03/27/2018 9:08 AM EDT documented in this encounter Progress Notes * Marguerite Calvo RN - 03/27/2018 9:00 AM EDT INFUSION THERAPY ADMINISTRATION NOTES DIAGNOSIS: Thymic cancer CYCLE #14, Day 1 REASON FOR VISIT: Carbo Taxol infusion SUBJECTIVE Monica offers no complaints. OBJECTIVE [...] AM EDT Office Visit Hematology/Oncology at [address] [phone] Shon Schneider MD [facility] [address] Ciara Pitts APRN [address] [place] [address] DR HEMATOLOGY AND ONCOLOGY [place], [place] [phone] 02/24/2024 9:30 AM EDT Infusion Hematology Oncology at [address] [phone] 03/02/2024 11:00 AM EDT Office Visit Hematology/Oncology at [address] [phone] Shon Schneider MD [facility] [place] [address] [address] [place] [address] 03/02/2024 12:30 PM EDT Infusion Hematology Oncology at [address] [phone] 03/09/2024 10:00 AM EDT Office Visit Hematology/Oncology at [address] [phone] Shon Schneider MD [facility] [place] [address] [address] [place] [address] 03/09/2024 10:30 AM EDT Infusion Hematology Oncology at [address] [phone] documented as of this encounter Procedures Procedure Name Priority Date/Time Associated Diagnosis Comments LAB SCAN 03/27/2018 12:00 AM EDT LAB SCAN 03/27/2018 12:00 AM EDT documented in this encounter Results * SCAN DOC: LAB (03/27/2018 12:00 AM EDT) Narrative 03/27/2018 12:00 AM EDT Ordered by an unspecified provider. Scanning Provider MEDIA MGR SCAN EXT O RDR/RSLT * SCAN DOC: LAB (03/27/2018 12:00 AM EDT) Narrative 03/27/2018 12:00 AM EDT Ordered by an unspecified [...] over 2 Minutes, ONCE, 1 dose, On Tue03/27/18 at 0945, Alternative administration of IV push over 2 minutes is a recommendation from the grey inspector., Routine Given 03/27/2018 10:22 AM EDT 130 mg CARBOplatin (PARAPLATIN) 900 mg in dextrose 5% 340 mL chemo infusion 900 mg (Target AUC = 6), Intravenous, ONCE, 1 dose, On Tue03/27/18 at 1045, Administer over 30 Minutes, Hold Parameters: CARBOplatin, Call provider for serum creatinine less than (mg/dL): .2, Call provider for serum creatinine greater than (mg/dL): 2, External serum creatinine results used to calculate dose? Yes, Enter serum creatinine value (mg/dL): .5, Enter serum creatinine result date: 05/26/2017 New Bag 03/27/2018 3:11 PM EDT 900 mg 680 mL/hr dexamethasone (DECADRON) injection 10 mg 10 mg, Intravenous, ONCE, 1 dose, On Tue03/27/18 at 0945, Administer 30 minutes prior to PACLitaxel Given 03/27/2018 10:14 AM EDT 10 mg diphenhydrAMINE (BENADRYL) injection 25 mg 25 mg, Intravenous, ONCE, 1 dose, On Tue03/27/18 at 0945, Administer 30 minutes prior to PACLitaxel, Routine Given 03/27/2018 10:23 AM EDT 25 mg famotidine (PEPCID) injection 20 mg 20 mg, Intravenous, ONCE, 1 dose, On Tue03/27/18 at 0945, Administer 30 minutes prior to PACLitaxel Given 03/27/2018 10:17 AM EDT 20 mg heparin, porcine 100 unit/mL flush 500 Units 500 Units, Intravenous, ONCE PRN, Starting on Tue03/27/18 at 0919, Until Tue03/27/18 at 1758, Line Care, Refer to Intravenous (IV) Procedure: Accessing Implanted Vascular Access Devices (654) procedure and/or Intravenous (IV) Job Aid: Adult Flushing & Catheter Care (8663) job aid for additional information regarding guidelines and administration., Routine Given 03/27/2018 3:46 PM EDT 500 Units magnesium sulfate 1g in dextrose 5% 100mL 1 g, Intravenous, ONCE, 1 dose, On Tue03/27/18 at 1100, Administer over 60 Minutes New Bag 03/27/2018 10:56 AM EDT 1 g 100 mL/hr PACLitaxel (TAXOL) 496 mg in dextrose 5% Non-PVC 582.6667 mL chemo infusion 496 mg (200 mg/m2/dose ? 2.48 m2 Treatment Plan BSA from Recorded weight), Intravenous, ONCE, 1 dose, On Tue03/27/18 at 1045, Administer over 3 Hours, Warning Vesicant/Irritant Medication New Bag 03/27/2018 11:51 AM EDT 496 mg 194.2 mL/hr palonosetron (ALOXI) injection 0.25 mg 0.25 mg, Intravenous, ONCE, 1 dose, On Tue03/27/18 at 0945, Administer over 30 seconds. Administer prior to chemotherapy, Routine Given 03/27/2018 10:13 AM EDT 0.25 mg pegfilgrastim (NEULASTA) injection 6 mg 6 mg, Subcutaneous, ONCE, 1 dose, On Tue03/27/18 at 1100, Bring to room temperature 15-30 mins before administration. , Routine, This agent is restricted to outpatient use. Is this drug being given as an outpatient? Yes Given 03/27/2018 3:12 PM EDT 6 mg Right Arm sodium chloride 0.9 % flush 5-20 mL 5-20 mL, Intravenous, EVERY 1 MIN PRN, Starting on Tue03/27/18 at 0919, Until Tue03/27/18 at 1758, Line Care, Flush pertains to all indwelling lines. Flush per protocol found in the job aid using the link provided on this medication record. Refer to Intravenous (IV) Job Aid: Adult Flushing & Catheter Care (5745) job aid for additional information regarding guidelines and administration., Routine Given 03/27/2018 3:46 PM EDT 20 mLs documented in this encounter Care Teams Circuits Engineer Relationship Specialty Start Date End Date Gloria Red MD [address] [place] [address] [place] [phone] PCP - General Family Medicine 05/26/17 12/03/18 documented as of this encounter
--- OUTSIDE RECORDS SUMMARY | 2024-02-24 01:26 | XMS_ITS | Encounter Summary ---
Author Organization [facility] [place] [address] Care Team Providers Care Braid Folder Name Role Phone Gloria Red MD Primary Care Provider Encounter Details Date Type Department Care Team (Late st Contact Info) Description 07/11/2017 8:45 AM EST Office Visit Hematology/Oncology at [address] [phone] Allison Palacios, SOFTBALL WINDER [address] [facility] [place] [address] Thymic carcinoma Social History Tobacco Use Types Packs/Day Years Used Date Smoking Tobacco: Never Smokeless Tobacco: Never Sex and Gender Information Value Date Recorded Sex Assigned at Not on file Gender Identity Not on file Sexual Orientation Not on file documented as of this encounter Last Filed Vital Signs Vital Sign Reading Time Taken Comments Blood Pressure 152/83 07/11/2017 8:45 AM EST Pulse 90 07/11/2017 8:45 AM EST Temperature 36.7 ??C (98.1 ??F) 07/11/2017 8:45 AM ES T Respiratory Rate 18 07/11/2017 8:45 AM EST Oxygen Saturation 100% 07/11/2017 8:45 AM EST Inhaled Oxygen Concentration - - Weight 116.8 kg (257 lb 6.4 oz) 07/11/2017 8:45 AM EST Height 176.5 cm (5' 9.49) 07/11/2017 8:45 AM ES T copied Body Mass Index 37.48 07/11/2017 8:45 AM EST documented in this encounter Progress Notes * Allison Palacios, SOFTBALL WINDER - 07/11/2017 8:45 AM EST Diagnosis: 1) 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 She has all of her s/e- mainly constipation, under good control. Her main issue is moderately severe bone pain for 48hrs when the Neulasta begins to take effect. Tylenol/Ibuprofen has not been very effective and shedescribes pain is constant regardless of activity during that timeframe. Past Medical History: Diagnosis Date ??? Atrial [...] Negative for dysuria and difficulty urinating. Musculoskeletal: see above no Skin: Negative. Neurological: Negative. Hematological: Negative for adenopathy. General: AAAx3, in NAD Head: Normocephalic, without obvious abnormality, atraumatic Eyes: PERRL, conjunctiva/corneas clear, EOM's intact Nose: Nares normal, septum midline Throat: Lips, mucosa, and tongue normal; teeth and gums normal Neck: Supple, symmetrical, trachea midline, no adenopathy Back: Symmetric, no curvature, ROM normal. Lungs: Clear to auscultation bilaterally, respirations unlabored; dec BS in RLL Heart: Regular rate and rhythm, S1, S2 normal, no murmur, rub or gallop Abdomen: Soft, non-tender, no masses, no organomegaly Extremities: Extremities normal, atraumatic, no cyanosis or edema Skin: Skin color, texture, turgor normal, no rashes or lesions - there are two spots of previous stitch removal which appear very erythematous (well above port site) Lymph nodes: Cervical, supraclavicular, and axillary nodes normal Neurologic: Normal; nl patellar reflexes; chronic condition nurse grossly intact Vitals BP 152/83 (Patient Position: Sitting) Pulse 90 Temp 36.7 ??C (98.1 ??F) (Oral) Resp 18 Ht 176.5 cm (5' 9.49) Comment: copied Wt 116.8 kg (257 lb 6.4 oz) SpO2 100% BMI 37.48 kg/m2 Weight Wt Readings from Last 3 Encounters: 07/11/17 116.8 kg (257 lb 6.4 oz) 06/20/17 117.5 kg (259 lb) 06/09/17 114.3 kg (252 lb) Labs: 07/11/17 CBC: WBC 5.02 hemoglobin 10 point platelets 149 ANC 3.24 CMP: Sodium 139 potassium 3.5 BUN 9 creatinine 0.67 glucose 100 calcium 9.3 total bili 0.6 AST ALT 19 alk phos 59 total protein 7.9 albumin 3.3 ASSESSMENT/PLAN: Monica is absolutely fine today for her second cycle of treatment. Her only side effect is from the Neulasta which is extremely bad for 48hrs- the alternating Tylenol and ibuprofen, along with Claritin was not any more effective than straight tylenol. One thing we could try is Naproxen and I have put in a script for that and use just for those 48hrs since she is also on Eliquis. As noted, she could get some antinausea and muscle relaxant effects from lorazepam, but wants to try and hold off on that. The stitch sites above her port appear infected so will give her 7d of Keflex. We will go aheadtoday with treatment without any change. Will see her back in 3 weeks for her next cycle of treatmen t, with a CBC and CMP from her port prior to that. She will call if there are any issues or problems in the interim. Allison Palacios, MSN, HVAC R INSTRUCTOR, AOCN Hematology/Oncology Nurse Practitioner [place], [place] [phone] documented in this encounter Miscellaneous Notes * Addendum Note - Allison Palacios APRN - 07/11/2017 11:01 AM ESTAddended by: ALLISON PALACIOS on: 07/11/2017 11:01 AM Modules accepted: Orders documented in this encounter Plan of Treatment Upcoming Encounters Date Type Department Care Team (Late st Contact Info) Description 02/24/2024 9:00 AM EDT Office Visit Hematology/Oncology at [address] [phone] Shon Schneider MD [facility] [place] [address] Ciara Pitts APRN [address] [place] [address] DR HEMATOLOGY AND ONCOLOGY [place], [place] [address] 02/24/2024 9:30 AM EDT Infusion Hematology Oncology at [address] [phone] 03/02/2024 11:00 AM EDT Office Visit Hematology/Oncology at [address] [phone] Shon Schneider MD [facility] [place] [address] [place] [address] 03/02/2024 12:30 PM EDT Infusion Hematology Oncology at [address] [phone] 03/09/2024 10:00 AM EDT Office Visit Hematology/Oncology at [address] [phone] Shon Schneider MD [facility] [place] [address] [address] [place] [address] 03/09/2024 10:30 AM EDT Infusion Hematology Oncology at [address] [phone] documented as of this encounter Visit Diagnoses Diagnosis 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 documented in this encounter Care Teams Braid Folder Relationship Specialty Start Date End Date Gloria Red MD [address] [place] [address] [place] [phone] PCP - General Family Medicine 05/26/17 12/03/18 documented as of this encounter
--- OUTSIDE RECORDS SUMMARY | 2024-02-24 01:26 | XMS_ITS | Encounter Summary ---
Author Organization [facility] [place] [address] Care Team Providers Care Slitting And Shipping Supervisor Name Role Phone Gloria Red MD Primary Care Provider Reason for Visit * Reason Comments Cancer Encounter Details Date Type Department Care Team (Late st Contact Info) Description 12/12/2017 8:00 AM EDT Office Visit Hematology/Oncology at [address] [phone] Jerrod White MD [address] [place] [phone] Thymic carcinoma Social History Tobacco Use Types Packs/Day Years Used Date Smoking Tobacco: Never Smokeless Tobacco: Never Sex and Gender Information Value Date Recorded Sex Assigned at Not on file Gender Identity Not on file Sexual Orientation Not on file documented as of this encounter Last Filed Vital Signs Vital Sign Reading Time Taken Comments Blood Pressure 119/72 12/12/2017 8:08 AM EDT Pulse 89 12/12/2017 8:08 AM EDT Temperature 36.9 ??C (98.4 ??F) 12/12/2017 8:08 AM ED T Respiratory Rate 16 12/12/2017 8:08 AM EDT Oxygen Saturation 100% 12/12/2017 8:08 AM EDT Inhaled Oxygen Concentration - - Weight 122 kg (269 lb) 12/12/2017 8:08 AM EDT Height 176.5 cm (5' 9.49) 12/12/2017 8:08 AM ED T copied Body Mass Index 39.17 12/12/2017 8:08 AM EDT documented in this encounter Progress Notes * Jerrod White MD - 12/12/2017 8:00 AM EDT Diagnosis: 1) 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 Past medical history and social history reviewed [...] upon request. Final classification is deferred to resection.?Paper Feeder slides of this case were reviewed at the intradepartmental consultation conference. Immunoperoxidase stains were performed on this case to further characterize the lesion. ANTIBODY(CLONE)(BLOCK):RESULT Ckit (CD117) (EP10, Leica) (2): Positive CD5 (Rabbit Monoclonal, clone SP19, Thermo Scientific) (2): Positive PAX-8 (MRQ-50, [place]) (2): Positive P40 (BC28, [place]) (2): Positive Keratin AE1-AE3 (AE1-AE3, [employer]oc[employer]) (2): Positive Chromogranin (LK2H10, [place]) (2): Positive Synaptophysin (27G12, Leica) (2): Positive MIB-1 (DAKO) (MIB-1, Dako) (2): 5-15% nuclei positive CK7 (RN7, Leica) (2): Negative CK20 (Ks20.8, Leica) (2): Negative TTF-1 (8G7G3/1, [place]) (2): Negative GATA3 (L50-823, [place]) (2): Negative CD34 (QBEnd/10, Leica) (2): Negative CASE: [id number] Second Opinion PATIENT: MONICA PIERRE [facility] Department of Pathology [address] [place], [place] [id number] [facility] License No.: [id number] Upsetting Machine Operator: Dr. Juan Jose Mcleod Physician: EDVIN SYED M.D. Resident: Natali Flores?Pee Calle., Ph.D. Pathologist:? Bhargavi Gil M.D. PATHOLOGIC DIAGNOSIS: CONSULT SLIDES FROM [facility]; [place], [place]: A. MEDIASTINUM, MASS, BIOPSY ([id number]; 03/22/2017): ? MALIGNANT THYMIC EPITHELIAL NEOPLASM consistent [...] chain myosin and P63, confirming their benign nature.?Paper Feeder slides of this case were reviewed at the intradepartmental consultation conference.?(Dr. Bond)/[facility] PET CT EYE TO THIGH?04/18/2017 2:03 PM Signs and Symptoms/Comments:? C7A.8-Other malignant neuroendocrine tumors (HCC)-ICD-10 M72-Vkaxfkayv neoplasm of thymus (HCC)-ICD-10; thymic squamous cell ca, thymic neuroendocrine tumor, vertebral body lesions concerning for mets . Comparison: CT of the abdomen and pelvis from 03/23/2017, CT of the chest from 03/18/2017, ultrasound guided breast biopsy from 03/25/2017 Technique: Approximately 91 minutes following the IV injection of 15 mCi of [id number], 3D TOF PET imaging was obtained from the head to the upper thighs with attenuation correction using a [place] Big Bore dedicated closed ring PET / [...] 480 mg pegfilgrastim (NEULASTA) SubQ 6 mg [facility] ONCOLOGY (AMB) 09/13/2017 Day, Cycle Day 1, Cycle 6 CARBOplatin (PARAPLATIN) IV 900 mg PACLitaxel (TAXOL) IV 200 mg/m2/dose = 480 mg pegfilgrastim (NEULASTA) [facility] 10/03/2017 Day, Cycle Day 1, Cycle 7 CARBOplatin (PARAPLATIN) IV 900 mg PACLitaxel (TAXOL) IV 200 mg/m2/dose = 480 mg pegfilgrastim (NEULASTA) [facility]Q [facility] 10/24/2017 Day, Cycle Day 1, Cycle 8 CARBOplatin (PARAPLATIN) IV 900 mg PACLitaxel (TAXOL) IV 200 mg/m2/dose = 480 mg pegfilgrastim (NEULASTA) [facility]Q [facility] 11/21/2017 Day, Cycle Day 1, [...] left breast mass. 3.?Additional findings as above. Review of [facility] today shows a white count of 3.53 hemoglobin 8.2 hematocrit 24.9 and a platelet count of 96,000 absolute neutrophil count is 2.03. CMP shows normal electrolytes a creatinine of 0.7 calcium of 8.8 ALP of 53 and albumin of 3.4. Magnesium remains low at 1.1. Assessment/plan: Monica is doing well on the treatment and clinically actually is physically tolerating the treatmentquite well with less side effects than when she started. That being said though she starting to have some hematologic toxicity from treatment with a marginal platelet count for treatment today and increasing chemotherapy associated anemia. I think we are going to have to cut back at some point on dose intensity if we stayed with this regiment and in that regard it would be much less effective. Since her PET scan is scheduled for 2 weeks from now my feelings would be to go ahead and treat her today as my hope would be that she has a good response and with that we can give her a treatment break after that. She is asymptomatic so we will hold off on considering a transfusion. She is also asymptomatic from her low magnesium with no problem with potassium noted indicating lack of renal wasting. We will see her back in 3 weeks time and go over her PET scan check her blood counts at that time.We could consider continuing this regimen if she had a near complete response but if that was the case I would favor a break rather than pushing it considering the treatment is palliative. She will let me know if there is issues or problems in the interim. documented in this encounter Plan of Treatment Upcoming Encounters Date Type Department Care Team (Late st Contact Info) Description 02/24/2024 9:00 AM EDT Office Visit Hematology/Oncology at [address] [phone] Shon Schneider MD [facility] [place] [address] Ciara Pitts, [address] HEMATOLOGY AND ONCOLOGY [place], [place] [address] 02/24/2024 9:30 AM EDT Infusion Hematology Oncology at [address] [phone] 03/02/2024 11:00 AM EDT Office Visit Hematology/Oncology at [address] [phone] Shon Schneider MD [facility] [place] [address] Ciara Pitts, [address] [place] [address] 03/02/2024 12:30 PM EDT Infusion Hematology Oncology at [address] [phone] 03/09/2024 10:00 AM EDT Office Visit Hematology/Oncology at [address] [phone] Shon Schneider MD [facility] [place] [address] Ciara Pitts APRN [address] [place] [address] DR HEMATOLOGY AND ONCOLOGY [place], [place] [phone] 03/09/2024 10:30 AM EDT Infusion Hematology Oncology at [address] [phone] documented as of this encounter Procedures Procedure Name Priority Date/Time Associated Diagnosis Comments CT SCAN (SCAN) 12/28/2017 12:00 AM EDT documented in this encounter Results * SCAN DOC: CT SCAN (12/28/2017 12:00 AM EDT) Anatomical Region Laterality Modality Other Narrative 12/28/2017 12:00 AM EDT Ordered by an unspecified provider. 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 documented in this encounter Care Teams Slitting And Shipping Supervisor Relationship Specialty Start Date End Date Gloria Red MD [address] [place] [address] [place] [address] PCP - General Family Medicine 05/26/17 12/03/18 documented as of this encounter
--- OUTSIDE RECORDS SUMMARY | 2024-02-24 01:26 | XMS_ITS | Encounter Summary ---
Author Organization [facility] [place] [address] Care Team Providers Care Sawmill Worker Name Role Phone Gloria Red MD Primary Care Provider Encounter Details Date Type Department Care Team (Late st Contact Info) Description 01/02/2018 8:00 AM EDT Office Visit Hematology/Oncology at [address] [phone] Blanca Kim, [facility] [place] [address] Thymic cancer Social History Tobacco Use Types Packs/Day Years Used Date Smoking Tobacco: Never Smokeless Tobacco: Never Sex and Gender Information Value Date Recorded Sex Assigned at Not on file Gender Identity Not on file Sexual Orientation Not on file documented as of this encounter Last Filed Vital Signs Vital Sign Reading Time Taken Comments Blood Pressure 140/72 01/02/2018 8:18 AM EDT Pulse 81 01/02/2018 8:18 AM EDT Temperature 36.9 ??C (98.4 ??F) 01/02/2018 8:18 AM ED T Respiratory Rate 18 01/02/2018 8:18 AM EDT Oxygen Saturation 100% 01/02/2018 8:18 AM EDT Inhaled Oxygen Concentration - - Weight 121.1 kg (267 lb) 01/02/2018 8:18 AM EDT Height 176.5 cm (5' 9.49) 01/02/2018 8:18 AM ED T copied Body Mass Index 38.88 01/02/2018 8:18 AM EDT documented in this encounter Patient Instructions * Patient Instructions* Blanca Kim APRN - 01/02/2018 8:00 AM EDT She will receive I u pcells and IV magnesium in [facility]. 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 She notes that as far as side effects from the treatment goes she is doing okay.she is really not having any significant neuropathy but does note a little numbness in the fingers of her thumb first and second finger of the left hand. That is intermittent. She also has a little Numbness in the toes of her right foot on occasion. This has not changed since her last treatment. She is not having any nausea or vomiting and really does not have any dyspnea on exertion and feels well overall with no problems with breathing no chest discomfort at all. She is doing well but is feeling more fatigued. Past medical history and social history reviewed and unchanged from her previous visit. Past Medical History: Diagnosis Date ??? Atrial [...] Systems Constitutional: Negative for fever, chills, activity change,positive for fatigue HENT: Negative for sore throat, mouth sores [...] and right foot. Hematological: Negative for adenopathy. All systems were reviewed and changes made as appropriate. Vitals Office Visit from 01/02/2018 in Hematology/Oncology at [facility] Weight 121.1 kg (267 lb) Height 176.5 cm (5' 9.49) [copied] BSA (Calculated - sq m) 2.44 sq meters BMI (Calculated) 38.87 Temp 36.9 ??C (98.4 ??F) Temp src Oral Heart Rate 81 Heart Rate Source Right, NIBP Resp 18 BP 140/72 BP Location Right arm SpO2 100 % Karnofsky Score 90 Motor Neuropathy -- [0] Sensory Neuropathy Grade 1 [intermittent left fingers, toes R foot] Head: Normocephalic Eyes: PErrL Ears: Normal TM's and external ear canals, both ears Throat: Lips, mucosa, and tongue normal; teeth [...] upon request. Final classification is deferred to resection.?Sort Worker slides of this case were reviewed at the intradepartmental consultation conference. Immunoperoxidase stains were performed on this case to further characterize the lesion. ANTIBODY(CLONE)(BLOCK):RESULT Ckit (CD117) (EP10, Leica) (2): Positive CD5 (Rabbit Monoclonal, clone SP19, Thermo Scientific) (2): Positive PAX-8 (MRQ-50, [place]) (2): Positive P40 (BC28, [place]) (2): Positive Keratin AE1-AE3 (AE1-AE3, [employer]) (2): Positive Chromogranin (LK2H10, [place]) (2): Positive Synaptophysin (27G12, Leica) (2): Positive MIB-1 (DAKO) (MIB-1, [place]) (2): 5-15% nuclei positive CK7 (RN7, Leica) (2): Negative CK20 (Ks20.8, Leica) (2): Negative TTF-1 (8G7G3/1, [place]) (2): Negative GATA3 (L50-823, [place]) (2): Negative CD34 (QBEnd/10, Leica) (2): Negative CASE: [id number] Second Opinion PATIENT: MONICA PIERRE [facility] Department of Pathology [address] [place] [address] CLIA License No.: [id number] Principal Electrical Engineer: Dr. Juan Jose Mcleod Physician: EDVIN SYED M.D. Resident: Natali Flores?Kaylah Calle, Ph.D. Pathologist:? Bhargavi Gil M.D. PATHOLOGIC DIAGNOSIS: CONSULT SLIDES FROM [facility]; [place], [place]: A. MEDIASTINUM, MASS, BIOPSY ([id number]; 03/22/2017): ? 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 ?Immunohistochemistry performed at the outside institution and reviewed ?at [facility] demonstrates the following staining profile in lesional cells: ? Positive - AE1/AE3, p40, PAX8, CD117, CD5(multifocal), ?CK7(scattered cells), synaptophysin, chromogranin ? Negative - CK20, TTF-1, GATA3, CD34 ? The immunohistochemical profile supports the above diagnosis. ? Ki67 (MIB-1) proliferation index performed at the referring ?institution and reviewed at [facility] is focally up to ~30%. NOTE: [...] chain myosin and P63, confirming their benign nature.?Sort Worker slides of this case were reviewed at the intradepartmental consultation conference.?(Dr. Bond)/[facility] [place] PET CT EYE TO THIGH?04/18/2017 2:03 PM Signs and Symptoms/Comments:? C7A.8-Other malignant neuroendocrine tumors (HCC)-ICD-10 O41-Sanduizql neoplasm of thymus (HCC)-ICD-10; thymic squamous cell ca, thymic neuroendocrine tumor, vertebral body lesions concerning for mets . Comparison: CT of the abdomen and pelvis from 03/23/2017, CT of the chest from 03/18/2017, ultrasound guided breast biopsy from 03/25/2017 Technique: Approximately 91 minutes following the IV injection of 15 mCi of T63-ekuubfmopltdyqbujh, 3D TOF PET imaging was obtained from the head to the upper thighs with attenuation correction using a POLYBONA Big Bore dedicated closed ring PET / [...] lab today shows a white count of 4.71 hemoglobin 7.5 hematocrit 23.1 and a platelet count of 122,000 absolute neutrophil count is 2.88. CMP shows normal electrolytes a creatinine of0.77 calcium of 8.7 ALP of 59 and albumin of 3.5. Magnesium remains low at 1.6. CT scan of the chest done 12/28/17: Shows: Slight decrease in size of known anterior mediastinal mass 9.7x 4.1 now 9.0x3.1 cm. stable superiormediastinal mass stable superior mediastinal adenopathy and improvement of pleural disease within the left hemithorax.s She also has left atrial enlargement . Assessment/plan: Monica is doing well on the treatment and clinically actually is physically tolerating the treatmentquite well with less side effects than when she started. That being said though she starting to have some hematologic toxicity from treatment with a marginal platelet count for treatment today and increasing chemotherapy associated anemia. She has had some response to the treatment. We will give her a short break as well as give her hydration magnesium and 1 u p cells. She is feeling more fatigued. She will receive hydration, magnesium and 1 u p cells at [facility]. She will return in 2 weeks to see Christopher and decide whether or not to continue with the treatment. documented in this encounter Plan of Treatment Upcoming Encounters Date Type Department Care Team (Late st Contact Info) Description 02/24/2024 9:00 AM EDT Office Visit Hematology/Oncology at [address] [phone] Shon Schneider MD [facility] [place] [address] Ciara Pitts APRN [address] [place] [address] [place] [address] 02/24/2024 9:30 AM EDT Infusion Hematology Oncology at [address] [phone] 03/02/2024 11:00 AM EDT Office Visit Hematology/Oncology at [address] [phone] Shon Schneider MD [facility] [place] [address] HEMATOLOGY AND ONCOLOGY [place], [place] [phone] 03/02/2024 12:30 PM EDT Infusion Hematology Oncology at [address] [phone] 03/09/2024 10:00 AM EDT Office Visit Hematology/Oncology at [address] [phone] Shon Schneider MD [facility] [place] [address] Ciara Pitts, [address] HEMATOLOGY AND ONCOLOGY [place], [place] [address] 03/09/2024 10:30 AM EDT Infusion Hematology Oncology at [address] [phone] documented as of this encounter Procedures Procedure Name Priority Date/Time Associated Diagnosis Comments ORDS - PROVIDER CARE SCAN 01/02/2018 12:00 AM EDT documented in this encounter Results * SCAN DOC: ORDS - PROVIDER CARE (01/02/2018 12:00 AM EDT) Narrative 01/02/2018 12:00 AM EDT Ordered by an unspecified provider. Scanning Provider MEDIA MGR SCAN EXT O RDR/RSLT documented in this encounter Visit Diagnoses Diagnosis Thymic cancer 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 documented in this encounter Care Teams Sawmill Worker Relationship Specialty Start Date End Date Gloria Red MD [address] [place] [address] [place] [phone] PCP - General Family Medicine 05/26/17 12/03/18 documented as of this encounter
--- OUTSIDE RECORDS SUMMARY | 2024-02-24 01:26 | XMS_ITS | Encounter Summary ---
Author Organization [facility] [place] [address] Care Team Providers Care Outside Sales Account Manager Name Role Phone Gloria Red MD Primary Care Provider [phone] Reason for Visit * Reason Comments Chemotherapy Carbo/Taxol, Cycle 1 3, Day 1 * Treatment/Therapy Plan Authorization (Routine) - Closed Specialty Diagnoses / Procedures Referred By Franklyn t Referred To Contact Hematology and Oncology Diagnoses Thymic carcinoma Procedures TC PALONOSETRON HCL, 25MCG, INJECTION (ALOXI) TC FOSAPREPITANT, 1MG, INJECTION (EMEND) TC CARBOPLATIN, 50MG, INJECTION (PARAPLATIN) TC PACLITAXEL, 1MG, INJ TC PEGFILGRASTIM, 6MG, INJECTION Jerrod White MD [address] [place] [phone] [facility] Hem Onc Office [address] [place] [phone] Referral ID Status Reason Start Date Expiration Date Visits Re quested Visits Authorized [id number] Closed 05/27/2017 08/26/2018 18 18 Encounter Details Date Type Department Care Team ([facility] st Contact Info) Description 02/27/2018 9:00 AM EDT Infusion Hematology Oncology at [address] [phone] Thymic carcinoma Social History Tobacco Use Types Packs/Day Years Used Date Smoking Tobacco: Never Smokeless Tobacco: Never Sex and Gender Information Value Date Recorded Sex Assigned at Not on file Gender Identity Not on file Sexual Orientation Not on file documented as of this encounter Progress Notes * Marguerite Calvo RN - 02/27/2018 9:00 AM EDT INFUSION THERAPY ADMINISTRATION NOTES DIAGNOSIS: Thymic carcinoma CYCLE # 13, Day 1 REASON FOR VISIT: Carbo/Taxol infusion [...] was awake, alert and tolerated treatment well. Mediport left accessed for labs at [facility] this afternoon. PLAN Have type & screen drawn at [facility] this afternoon for transfusion tomorrow. Return to [facility]- as scheduled. documented in this encounter Plan of Treatment Upcoming Encounters Date Type Department Care Team (Late st Contact Info) Description 02/24/2024 9:00 AM EDT Office Visit Hematology/Oncology at [address] [phone] Shon Schneider MD [facility] [place] [address] Ciara Pitts MUSHROOM PRESS OPERATOR [address] [place] [address] [place] [address] 02/24/2024 9:30 AM EDT Infusion Hematology Oncology at [address] [phone] 03/02/2024 11:00 AM EDT Office Visit Hematology/Oncology at [address] [phone] Shon Schneider MD [facility] [place] [address] Ciara Pitts, [address] HEMATOLOGY AND ONCOLOGY [place], [place] [phone] 03/02/2024 12:30 PM EDT Infusion Hematology Oncology at [address] [phone] 03/09/2024 10:00 AM EDT Office Visit Hematology/Oncology at [address] [phone] Shon Schneider MD [facility] [place] [address] HEMATOLOGY AND ONCOLOGY [place], [place] [phone] 03/09/2024 10:30 AM EDT Infusion Hematology Oncology at [address] [phone] documented as of this encounter [...] over 2 Minutes, ONCE, 1 dose, On Tue02/27/18 at 0915, Alternative administration of IV push over 2 minutes is a recommendation from the logger all round., Routine Given 02/27/2018 9:32 AM EDT 130 mg CARBOplatin (PARAPLATIN) 900 mg in dextrose 5% 340 mL chemo infusion 900 mg (Target AUC = 6), Intravenous, ONCE, 1 dose, On Tue02/27/18 at 1015, Administer over 30 Minutes, Hold Parameters: CARBOplatin, Call provider for serum creatinine less than (mg/dL): .2, Call provider for serum creatinine greater than (mg/dL): 2, External serum creatinine results used to calculate dose? Yes, Enter serum creatinine value (mg/dL): .5, Enter serum creatinine result date: 05/26/2017 New Bag 02/27/2018 1:28 PM EDT 900 mg 680 mL/hr dexamethasone (DECADRON) injection 10 mg 10 mg, Intravenous, ONCE, 1 dose, On Tue02/27/18 at 0915, Administer 30 minutes prior to PACLitaxel Given 02/27/2018 9:25 AM EDT 10 mg diphenhydrAMINE (BENADRYL) injection 25 mg 25 mg, Intravenous, ONCE, 1 dose, On Tue02/27/18 at 0915, Administer 30 minutes prior to PACLitaxel, Routine Given 02/27/2018 9:35 AM EDT 25 mg famotidine (PEPCID) injection 20 mg 20 mg, Intravenous, ONCE, 1 dose, On Tue02/27/18 at 0915, Administer 30 minutes prior to PACLitaxel Given 02/27/2018 9:29 AM EDT 20 mg magnesium sulfate 1g in dextrose 5% 100mL 1 g, Intravenous, ONCE, 1 dose, On Tue02/27/18 at 0915, Administer over 60 Minutes New Bag 02/27/2018 9:39 AM EDT 1 g 100 mL/hr PACLitaxel (TAXOL) 480 mg in dextrose 5% Non-PVC 580 mL chemo infusion 480 mg (200 mg/m2/dose ? 2.4 m2 Treatment Plan BSA from Recorded weight), Intravenous, ONCE, 1 dose, On Tue02/27/18 at 1015, Administer over 3 Hours, Warning Vesicant/Irritant Medication New Bag 02/27/2018 10:17 AM EDT 480 mg 193.3 mL/hr palonosetron (ALOXI) injection 0.25 mg 0.25 mg, Intravenous, ONCE, 1 dose, On Tue02/27/18 at 0915, Administer over 30 seconds. Administer prior to chemotherapy, Routine Given 02/27/2018 9:23 AM EDT 0.25 mg pegfilgrastim (NEULASTA) injection 6 mg 6 mg, Subcutaneous, ONCE, 1 dose, On Tue02/27/18 at 0915, Bring to room temperature 15-30 mins before administration. , Routine, This agent is restricted to outpatient use. Is this drug being given as an outpatient? Yes Given 02/27/2018 1:23 PM EDT 6 mg Right Arm documented in this encounter Care Teams Outside Sales Account Manager Relationship Specialty Start Date End Date Gloria Red MD [address] [place] [address] [place] [phone] PCP - General Family Medicine 05/26/17 12/03/18 documented as of this encounter
--- OUTSIDE RECORDS SUMMARY | 2024-02-24 01:26 | XMS_ITS | Encounter Summary ---
Author Organization [facility], Located Within [facility] [place] [address] Care Team Providers Care Hand Engraver Name Role Phone Gloria Red MD Primary Care Provider [phone] Reason for Visit * Reason Comments Chemotherapy Cycle 5 Day 1 Carbo/ Taxol * Treatment/Therapy Plan Authorization (Routine) - Closed Specialty Diagnoses / Procedures Referred By Franklyn del rio Referred To Contact Hematology and Oncology Diagnoses Thymic carcinoma Procedures TC PALONOSETRON HCL, 25MCG, INJECTION (ALOXI) TC FOSAPREPITANT, 1MG, INJECTION (EMEND) TC CARBOPLATIN, 50MG, INJECTION (PARAPLATIN) TC PACLITAXEL, 1MG, INJ TC PEGFILGRASTIM, 6MG, INJECTION Jerrod White MD [address] [place] [address] [facility] Hem Onc Office [address] [place] [phone] Referral ID Status Reason Start Date Expiration Date Visits Re quested Visits Authorized [id number] Closed 05/27/2017 08/26/2018 18 18 Encounter Details Date Type Department Care Team (Late st Contact Info) Description 08/22/2017 8:30 AM EDT Infusion Hematology Oncology at [address] [phone] Thymic carcinoma Social History Tobacco Use Types Packs/Day Years Used Date Smoking Tobacco: Never Smokeless Tobacco: Never Sex and Gender Information Value Date Recorded Sex Assigned at Not on file Gender Identity Not on file Sexual Orientation Not on file documented as of this encounter Progress Notes * Eden Vieira RN - 08/22/2017 8:30 AM EDT INFUSION THERAPY ADMINISTRATION NOTES DIAGNOSIS: Thymic carcinoma CYCLE # 5, Day 1 REASON FOR VISIT: Carbo/Taxol infusion & Neulasta SUBJECTIVE Monica offers no complaints. OBJECTIVE LAB DATA: WNL, reviewed by Gina White. IV ACCESS: Mediport Pre administration: Chemotherapy orders independently verified for drug name, route, and dosage per patient's height, weight and BSA by Eden Vieira, [facility] on site. REACTIONS (DESCRIPTION, TIME, INTERVENTION AND EFFECTIVENESS) none ASSESSMENT Monica was awake, alert and tolerated treatment well. PLAN Return to clinic as scheduled.. documented in this encounter Plan of Treatment Upcoming Encounters Date Type Department Care Team (Late st Contact Info) Description 02/24/2024 9:00 AM EDT Office Visit Hematology/Oncology at [address] [phone] Shon Schneider MD [facility] [place] [address] Ciara Pitts [address] [place]Y [place] [address] 02/24/2024 9:30 AM EDT Infusion Hematology Oncology at [address] [phone] 03/02/2024 11:00 AM EDT Office Visit Hematology/Oncology at [address] [phone] Shon Schneider MD [facility] [place] [address] Ciara Pitts [address] HEMATOLOGY AND ONCOLOGY [place], [place] [address] 03/02/2024 12:30 PM EDT Infusion Hematology Oncology at [address] [phone] 03/09/2024 10:00 AM EDT Office Visit Hematology/Oncology at [address] [phone] Shon Schneider MD [facility] [place] [address] Ciara Pitts APRN [address] [place] [address] DR HEMATOLOGY AND ONCOLOGY [place], [place] [phone] 03/09/2024 10:30 AM EDT Infusion Hematology Oncology at [address] [phone] documented as of this encounter Visit Diagnoses [...] = 6), Intravenous, ONCE, 1 dose, On Tue08/22/17 at 1000, Administer over 30 Minutes, Hold Parameters: CARBOplatin, Call provider for serum creatinine less than (mg/dL): .2, Call provider for serum creatinine greater than (mg/dL): 2, External serum creatinine results used to calculate dose? Yes, Enter serum creatinine value (mg/dL): .5, Enter serum creatinine result date: 05/26/2017 New Bag 08/22/2017 1:27 PM EDT 900 mg 680 mL/hr dexamethasone (DECADRON) injection 10 mg 10 mg, Intravenous, ONCE, 1 dose, On Tue08/22/17 at 0900, Administer 30 minutes prior to PACLitaxel Given 08/22/2017 9:27 AM EDT 10 mg diphenhydrAMINE (BENADRYL) injection 25 mg 25 mg, Intravenous, ONCE, 1 dose, On Tue08/22/17 at 0900, Administer 30 minutes prior to PACLitaxel, Routine Given 08/22/2017 9:29 AM EDT 25 mg famotidine (PEPCID) injection 20 mg 20 mg, Intravenous, ONCE, 1 dose, On Tue08/22/17 at 0900, Administer 30 minutes prior to PACLitaxel Given 08/22/2017 9:32 AM EDT 20 mg fosaprepitant (EMEND) 150 mg in sodium chloride 0.9% 255 mL infusion 150 mg, Intravenous, at 510 mL/hr, Administer over 30 Minutes, ONCE, 1 dose, On Tue08/22/17 at 0900, Routine New Bag 08/22/2017 9:34 AM EDT 150 mg 510 mL/hr heparin, porcine 100 unit/mL flush 500 Units 500 Units, Intravenous, ONCE PRN, Starting on Tue08/22/17 at 0835, Until Tue08/22/17 at 1640, Line Care, Refer to Intravenous (IV) Procedure: Accessing Implanted Vascular Access Devices (774) procedure and/or Intravenous (IV) Job Aid: Adult Flushing & Catheter Care (8382) job aid for additional information regarding guidelines and administration., Routine Given 08/22/2017 2:04 PM EDT 500 Units PACLitaxel (TAXOL) 480 mg in sodium chloride 0.9% Non-PVC 580 mL chemo infusion 480 mg (200 mg/m2/dose ? 2.4 m2 Treatment Plan BSA from Recorded weight), Intravenous, ONCE, 1 dose, On Tue08/22/17 at 1000, Administer over 3 Hours, Warning Vesicant/Irritant Medication New Bag 08/22/2017 10:14 AM EDT 480 mg 193.3 mL/hr palonosetron (ALOXI) injection 0.25 mg 0.25 mg, Intravenous, ONCE, 1 dose, On Tue08/22/17 at 0900, Administer over 30 seconds. Administer prior to chemotherapy, Routine Given 08/22/2017 9:33 AM EDT 0.25 mg pegfilgrastim (NEULASTA) injection 6 mg 6 mg, Subcutaneous, ONCE, 1 dose, On Tue08/22/17 at 0900, Bring to room temperature 15-30 mins before administration. , Routine Given 08/22/2017 2:02 PM EDT 6 mg Right Arm sodium chloride 0.9 % flush 5-20 mL 5-20 mL, Intravenous, EVERY 1 MIN PRN, Starting on Tue08/22/17 at 0835, Until Tue08/22/17 at 1640, Line Care, Flush pertains to all indwelling lines. Flush per protocol found in the job aid using the link provided on this medication record. Refer to Intravenous (IV) Job Aid: Adult Flushing & Catheter Care (2933) job aid for additional information regarding guidelines and administration., Routine Given 08/22/2017 2:05 PM EDT 20 mLs documented in this encounter Care Teams Hand Engraver Relationship Specialty Start Date End Date Gloria Red MD [address] [place] [address] [place] [phone] PCP - General Family Medicine 05/26/17 12/03/18 documented as of this encounter
--- OUTSIDE RECORDS SUMMARY | 2024-02-24 01:26 | XMS_ITS | Encounter Summary ---
Author Organization [facility] [place] [address] Care Team Providers Care Computing Architect Name Role Phone Gloria Red MD Primary Care Provider [phone] Reason for Visit * Reason Comments Cancer Encounter Details Date Type Department Care Team (Late st Contact Info) Description 10/03/2017 9:30 AM EDT Office Visit Hematology/Oncology at [address] [phone] Jerrod White MD [address] [place] [phone] Thymic carcinoma Social History Tobacco Use Types Packs/Day Years Used Date Smoking Tobacco: Never Smokeless Tobacco: Never Sex and Gender Information Value Date Recorded Sex Assigned at Not on file Gender Identity Not on file Sexual Orientation Not on file documented as of this encounter Last Filed Vital Signs Vital Sign Reading Time Taken Comments Blood Pressure 125/75 10/03/2017 9:17 AM EDT Pulse 80 10/03/2017 9:17 AM EDT Temperature 36.9 ??C (98.4 ??F) 10/03/2017 9:17 AM ED T Respiratory Rate 18 10/03/2017 9:17 AM EDT Oxygen Saturation 100% 10/03/2017 9:17 AM EDT Inhaled Oxygen Concentration - - Weight 121.1 kg (267 lb) 10/03/2017 9:17 AM EDT Height 176.5 cm (5' 9.49) 10/03/2017 9:17 AM ED T copied Body Mass Index 38.88 10/03/2017 9:17 AM EDT documented in this encounter Progress Notes * Jerrod White MD - 10/03/2017 9:30 AM EDT Diagnosis: 1) 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 She is continuing to tolerate chemotherapy exceptionally well with really no complaints at all. She has not had any nausea or vomiting and is having no neuropathy symptoms that are persistent. She did notice a little bit of tingling in her fingertips for a few days. That resolved. Otherwise she notes a little bit of dyspnea on exertion but no shortness of breath no pain or discomfort anywhere. Bowel functions been fine and she is in great spirits psychologically. We spent some time talking about restaging her after the next cycle of treatment and also possible scenarios for what to do de pending on results. I believe all her questions were answered. Past medical history and social history reviewed [...] upon request. Final classification is deferred to resection.?Welder/Fitter slides of this case were reviewed at the intradepartmental consultation conference. Immunoperoxidase stains were performed on this case to further characterize the lesion. ANTIBODY(CLONE)(BLOCK):RESULT Ckit (CD117) (EP10, [employer]) (2): Positive CD5 (Rabbit Monoclonal, clone SP19, [employer]) (2): Positive PAX-8 (MRQ-50, [place]) (2): Positive P40 (BC28, [place]) (2): Positive Keratin AE1-AE3 (AE1-AE3, [employer]) (2): Positive Chromogranin (LK2H10, [place]) (2): Positive Synaptophysin (27G12, Leica) (2): Positive MIB-1 (DAKO) (MIB-1, Dako) (2): 5-15% nuclei positive CK7 (RN7, Leica) (2): Negative CK20 (Ks20.8, [employer]ica) (2): Negative TTF-1 (8G7G3/1, [place]) (2): Negative GATA3 (L50-823, [place]) (2): Negative CD34 (QBEnd/10, Leica) (2): Negative CASE: [id number] Second Opinion PATIENT: MONICA GOODMANSELL [facility] Department of Pathology [address] [place] [address] [facility] License No.: [id number] [employer] Cook Head: Dr. Juan Jose Mcleod Physician: EDVIN SYED M.D. Resident: Natali Flores?Hung, M.D., Ph.D. Pathologist:? Bhargavi Gil M.D. PATHOLOGIC DIAGNOSIS: CONSULT SLIDES FROM [facility]; [place], [place]: A. MEDIASTINUM, MASS, BIOPSY ([id number]; 03/22/2017): ? MALIGNANT THYMIC EPITHELIAL NEOPLASM consistent [...] chain myosin and P63, confirming their benign nature.?Welder/Fitter slides of this case were reviewed at the intradepartmental consultation conference.?(Dr. Bond)/[facility] PET CT EYE TO THIGH?04/18/2017 2:03 PM Signs and Symptoms/Comments:? C7A.8-Other malignant neuroendocrine tumors (HCC)-ICD-10 R16-Yhsrluxqx neoplasm of thymus (HCC)-ICD-10; thymic squamous cell ca, thymic neuroendocrine tumor, vertebral body lesions concerning for mets . Comparison: CT of the abdomen and pelvis from 03/23/2017, CT of the chest from 03/18/2017, ultrasound guided breast biopsy from 03/25/2017 Technique: Approximately 91 minutes following the IV injection of 15 mCi of B96-khllkpdatedqglbyaw, 3D TOF PET imaging was obtained from the head to the upper thighs with attenuation correction using a TopVisible [place] dedicated closed ring PET / [...] mg pegfilgrastim ([facility]ASTA) [facility] 08/01/2017 Day, Cycle Day 1, Cycle 4 CARBOplatin (PARAPLATIN) IV 900 mg PACLitaxel (TAXOL) IV 200 mg/m2/dose = 480 mg pegfilgrastim (NEULASTA) SubQ 6 [facility] 08/22/2017 Day, Cycle Day 1, Cycle 5 CARBOplatin (PARAPLATIN) IV 900 mg PACLitaxel (TAXOL) IV 200 mg/m2/dose = 480 mg pegfilgrastim (NEULASTA) SubQ 6 [facility]) 09/13/2017 Day, Cycle Day 1, Cycle 6 [...] Laboratory today shows a white count of 4.81 hemoglobin 9.9 hematocrit 29.3 platelet count 144. Absolute neutrophil count 2.80. CMP shows normal electrolytes except for subtle decrease in potassium at 3.4 creatinine is fine at 0.56 calcium is 8.9 liver tests completely normal with an ALP of 52 and n ormal transaminases. Albumin remains normal at 3.4 Assessment/plan: Monica is fine today for cycle 7 chemotherapy with carboplatinum and Taxol. We will go ahead with that without dose change. She has some chemotherapy associated anemia which will continue to watch. She is only mildly symptomatic. Her blood counts are holding and so we will continue on with the Neulasta in view of the dosing which is on the high side but is been well-tolerated. We will continue to monitor for toxicity such as neuropathy which fortunately has not been a problem at this point. As far as restaging goes Monica will need a CT PET scan about 2 weeks after her next cycle (cycle 8)ordered at the [facility]. There may be a lot of scar tissue associated with her tumor and in that regard a PET scan will prove to be more accurate. Although she is tolerating the chemotherapy and having little significant side effects from treatment one would expect neuropathy and otherproblems to eventually necessitate discontinuation of the current therapy. A PET scan will help make a decision as to whether to go ahead with a 9th cycle of treatment, stop the treatment and give the patient a treatment break or consider a second line. documented in this encounter Plan of Treatment Upcoming Encounters Date Type Department Care Team (Late st Contact Info) Description 02/24/2024 9:00 AM EDT Office Visit Hematology/Oncology at [address] [phone] Shon Schneider MD [facility] [place] [address] [address] [place] [address] 02/24/2024 9:30 AM EDT Infusion Hematology Oncology at [address] [phone] 03/02/2024 11:00 AM EDT Office Visit Hematology/Oncology at [address] [phone] Shon Schneider MD [facility] [place] [address] [address] [place] [address] 03/02/2024 12:30 PM EDT Infusion Hematology Oncology at [address] [phone] 03/09/2024 10:00 AM EDT Office Visit Hematology/Oncology at [address] [phone] Shon Schneider MD [facility] [place] [address] Ciara Pitts APRN [address] [place] [address] DR [place] [address] 03/09/2024 10:30 AM EDT Infusion Hematology Oncology at [address] [phone] documented as of this encounter Procedures Procedure Name Priority Date/Time Associated Diagnosis Comments LAB SCAN 10/03/2017 12:00 AM EDT LAB SCAN 09/13/2017 12:00 AM EDT documented in this encounter Results * SCAN DOC: LAB (10/03/2017 12:00 AM EDT) Narrative 10/03/2017 12:00 AM EDT Ordered by an unspecified provider. Scanning Provider MEDIA MGR SCAN EXT O RDR/RSLT * SCAN DOC: LAB (09/13/2017 12:00 AM EDT) Narrative 09/13/2017 12:00 AM EDT Ordered by an unspecified provider. 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 documented in this encounter Care Teams Computing Architect Relationship Specialty Start Date End Date Gloria Red MD [address] [place] [address] [place] [phone] PCP - General Family Medicine 05/26/17 12/03/18 documented as of this encounter
--- OUTSIDE RECORDS SUMMARY | 2024-02-24 01:26 | XMS_ITS | Encounter Summary ---
Author Organization [facility] [place] [address] Care Team Providers Care Mainframe Programmer Name Role Phone Gloria Red MD Primary Care Provider Encounter Details Date Type Department Care Team (Late st Contact Info) Description 07/11/2017 Notes Only Hematology Oncology at [address] [phone] Sun Collins, CHEESE SPECIALIST OFFICE OF CARE MANAGEMENT Social History Tobacco Use Types Packs/Day Years Used Date Smoking Tobacco: Never Smokeless Tobacco: Never Sex and Gender Information Value Date Recorded Sex Assigned at Not on file Gender Identity Not on file Sexual Orientation Not on file documented as of this encounter Progress Notes * Sun Collins MSW - 07/11/2017 1:15 PM EST Reason for Referral: Brief assessment of social and emotional needs. Met with pt and duringinfusion today. Social Supports: Pt's primary support is her of 39 years Nba. They have a son who liveswith them with son's 2 children. They have a daughter and her family who live nearby. Pt indicated she has a lot of extended family and friends. Living Situation/Daily Activities/Transportation: Pt and manage their dailt chores and activities. They do not expect any problems with transportation. 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 She has her job when she is ready to go back. She does not have any short term disability through her work. 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 Her goal is to get back to work when she is able. Her works multimedia services coordinator 3rd shift. She has BCBS for insurance. Advance Directives: Pt has not completed her advance directives. Pt given a copy of the [place] booklet/form to review and complete. Offered assistance if needed. Requested a copy for her record oncedone. Utilization of Community Resources: None at this time. Adjustment to Illness/Mental Health Issues: pt indicated she and her are coping well. She feels well supported by her family and friends. She feels her young grandchildren who live at home with her are doing well also. Identified Needs: Pt did not identify any specific needs at this time. Referrals: None at this time. Plan: Informed pt of my availability. Will follow for support and resources. documented in this encounter Plan of Treatment Upcoming Encounters Date Type Department Care Team (Late st Contact Info) Description 02/24/2024 9:00 AM EDT Office Visit Hematology/Oncology at [address] [phone] Shon Schneider MD [facility] [place] [address] Ciara Pitts APRN [address] [place] [address] [place] [address] 02/24/2024 9:30 AM EDT Infusion Hematology Oncology at [address] [phone] 03/02/2024 11:00 AM EDT Office Visit Hematology/Oncology at [address] [phone] Shon Schneider MD [facility] [place] [address] Ciara Pitts, [address] HEMATOLOGY [address] ONCOLOG[place], [place] [phone] 03/02/2024 12:30 PM EDT Infusion Hematology Oncology at [address] [phone] 03/09/2024 10:00 AM EDT Office Visit Hematology/Oncology at [address] [phone] Shon Schneider MD [facility] [place] [address] Ciara Pitts, [address] HEMATOLOGY [address] ONCOLOGY [place], [place] [phone] 03/09/2024 10:30 AM EDT Infusion Hematology Oncology at [address] [phone] documented as of this encounter Visit Diagnoses Not on filedocumented in this encounter Care Teams Mainframe Programmer Relationship Specialty Start Date End Date Gloria Red MD [address] [place] [address] [place] [phone] PCP - General Family Medicine 05/26/17 12/03/18 documented as of this encounter
--- OUTSIDE RECORDS SUMMARY | 2024-02-24 01:27 | XMS_ITS | Encounter Summary ---
Author Organization [facility] Address [address] [place] [address] Care Team Providers Care Assistant Program Director Name Role Phone Gloria Red MD Primary Care Provid er Encounter Details Date Type Department Care Team (Latest Contact Info) Description 08/17/2017 8:49 EST - 08/17/2017 23:59 EST Hospital Encounter [address] [address] Jerrod White MD [address] [place] [phone] Discharge Disposition: Auto Discharge Social History Tobacco Use Types Packs/Day Years Used Date Smoking Tobacco: Never Smokeless Tobacco: Never Sex and Gender Information Value Date Recorded Sex Assigned at Not on file Gender Identity Not on file Sexual Orientation Not on file documented as of this encounter Functional Status Functional Status Response Date of Assess ment Are you deaf or do you have serious difficulty h earing? No 03/18/2017 Are you blind or do you have serious difficulty seeing, even when wearing glasses? No 03/18/2017 Do you have serious difficul ty walking or climbing stairs? (5 years old or older) No 03/18/2017 Do you have difficulty dress ing or bathing? (5 years old or older) No 03/18/2017 Because of a physical, menta l, or emotional condition, does this person have difficulty doing errands alone such as visiting a doctor's office or shopping? No 04/05/2017 Cognitive Status Response Date of Assessm ent Because of a physical, menta l, or emotional condition, does this person have serious difficulty concentrating, remembering, or making decisions? No 04/05/2017 documented as of this encounter Discharge Diagnoses Diagnosis C37 Malignant neoplasm of thymus-C37[ICD-10-CM] J90 Pleural effusion, not elsewhere classified-J90[ICD-10-CM] N63.20 Unspecified lump in the left breast, unspecified quadrant-N63.20[ICD-10-CM] documented in this encounter Medications at Time of Discharge Medication Sig Dispensed Refills Start Date End Date acetaminophen (TYLENOL) 500 mg tablet Take 2 Tabs by mouth every 6 hours as needed for Pain. 03/27/2017 apixaban (ELIQUIS) 5 mg tablet Take 5 mg by mouth 2 times daily. DILTiazem (TIAZAC) 240 mg SR capsule Take 240 mg by mouth daily. docusate sodium (COLACE) 100 mg capsule Take 2 Caps by mouth 2 times daily as needed for Constipation. 03/27/2017 metoprolol XL (TOPROL-XL) 200 mg tablet Take 200 mg by mouth daily. Multivitamins with Minerals tablet tablet Take 1 Tab by mouth daily. 03/27/2017 oxyCODONE (ROXICODONE) 5 mg immediate release tablet Take 1-2 Tabs by mouth every 4 hours as needed for Pain. Daily Max: 60 mg 10 Tab 03/27/2017 polyethylene glycol 3350 (MIRALAX) 17 gram packet Take 17 g by mouth daily. 03/27/2017 documented as of this encounter Discharge Disposition Disposition Code Departure Means Destination Auto Discharge Home documented in this encounter Plan of Treatment Not on file documented as of this encounter Visit Diagnoses Not on filedocumented in this encounter Care Teams Assistant Program Director Relationship Specialty Start Date End Date Gloria Red MD [address] [place] [address] [place] [address] PCP - General 04/05/17 09/18/18 documented as of this encounter
--- OUTSIDE RECORDS SUMMARY | 2024-02-24 01:27 | XMS_ITS | Encounter Summary ---
Author Organization Formerly [facility] [place] [address] Care Team Providers Care Antique Dealer Name Role Phone Gloria Red MD Primary Care Provider [phone] Encounter Details Date Type Department Care Team (Late Contact Info) Description 05/28/2017 Telephone [place] [phone] Jason Rojas MD [facility] DR HEMATOLOGY/[place] [address] Social History Tobacco Use Types Packs/Day Years Used Date Smoking Tobacco: Never Smokeless Tobacco: Never Sex and Gender Information Value Date Recorded Sex Assigned at Not on file Gender Identity Not on file Sexual Orientation Not on file documented as of this encounter Miscellaneous Notes * Telephone Encounter - Jason Rojas - 05/28/2017 11:17 AM EST Patient did not get a px for her EMLA cream and compazine as was discussed yesterday by her nurse. I have sent a prescription for the EMLA and compazine to her pharmacy. documented in this encounter Plan of Treatment Upcoming Encounters Date Type Department Care Team (Late Contact Info) Description 02/24/2024 9:00 AM EDT Office Visit Hematology/Oncology at [address] [phone] Shon Schneider MD [facility] [place] [address] [address] HEMATOLOGY AND ONCOLOGY [place], [place] [address] [phone] 02/24/2024 9:30 AM EDT Infusion Hematology Oncology at [address] [phone] 03/02/2024 11:00 AM EDT Office Visit Hematology/Oncology at [address] [phone] Shon Schneider MD [facility] [place] [address] [address] HEMATOLOGY [place] [address] 03/02/2024 12:30 PM EDT Infusion Hematology Oncology at [address] [phone] 03/09/2024 10:00 AM EDT Office Visit Hematology/Oncology at [address] [phone] Shon Schneider MD [facility] [place] [address] [address] HEMATOLOGY AND ONCOLOGY [place], [place] [phone] 03/09/2024 10:30 AM EDT Infusion Hematology Oncology at [address] [phone] documented as of this encounter Visit Diagnoses Not on filedocumented in this encounter Care Teams Antique Dealer Relationship Specialty Start Date End Date Gloria Red MD [address] [place] [address] [place] [phone] PCP - General Family Medicine 05/26/17 12/03/18 documented as of this encounter
--- OUTSIDE RECORDS SUMMARY | 2024-02-24 01:27 | XMS_ITS | Encounter Summary ---
Author Organization [facility] Address [address] [place] [address] Care Team Providers Care Home Care Nurse Name Role Phone Jerzy Vidal MD Primary Care Provider [phone] Encounter Details Date Type Department Care Team (Late st Contact Info) Description 01/14/2020 Lab Requisition [facility] Pathology & Laboratory Medicine - [facility] [address] [place] [address] Darron Poon MD [address] [place] [phone] Encounter for other general examination Social History Tobacco Use Types Packs/Day Years Used Date Smoking Tobacco: Never Smokeless Tobacco: Never Interpersonal Safety Answer Date Record ed Physically Hurt Never 01/14/2020 Verbally Threaten Not on file 01/14/2020 Sex and Gender Information Value Date Recorded [...] No 04/05/2017 documented as of this encounter Plan of Treatment Not on file documented as of this encounter Procedures Procedure Name Priority Date/Time Associated Diagnosis Comments SURGICAL PATHOLOGY Today 01/11/2020 16 :00 EDT documented in this encounter Results * SURGICAL PATHOLOGY (01/11/2020 16:00 EDT) Final Diagnosis A. ENDOMETRIUM, BIOPSY: - Strips and scant fragments of weakly proliferative endometrium with breakdown and degenerative atypia. See comment. 01/17/2020 21:38 [facility] Diagnosis Comment Deeper sections of (A1) and (A2) have been examined. Home Coordinator slides of this case were reviewed at the intradepartmental consultation conference. 01/17/2020 21:38 [facility] Attestation There was significant resident/fellow involvement in the diagnostic evaluation of this case. By the signature below, the attending physician certifies that they have personally conducted a gross and/or microscopic examination of the described specimens and rendered or confirmed the above diagnosis. 01/17/2020 21:38 [facility] at 2138 Clinical History Abnormal uterine bleeding 01/17/2020 21:38 [facility] Gross Description A. Received in formalin labelled with proper patient identification (initials B, C) and not otherwise specified is an aggregate of soft dark red-brown tissue (1.7 x 1.2 x 0.4 cm). Entirely submitted in A1-A2. Vincenzo Moreno 01/15/2020 8:58 01/17/2020 21:38 [facility] Resident/Fell ow: Pop Gordon MD 01/17/2020 21:38 [facility] Performing Lab [facility] 01/17/2020 21:38 [facility] Scanned Images 01/17/2020 21:38 [facility] Tissue ENTIRE ENDOMETRIUM / Unknown 01/11/2020 16:00 EDT 01/14/2020 23:19 EDT Darron Poon MD PATHOLOGY [facility] [address] [place] [address] documented in this encounter Visit Diagnoses Diagnosis Encounter for other general examination documented in this encounter Care Teams Home Care Nurse Relationship Specialty Start Date End Date Jerzy Vidal MD [address] [place] [phone] PCP - General 09/19/18 documented as of this encounter
--- OUTSIDE RECORDS SUMMARY | 2024-02-24 01:27 | XMS_ITS | Encounter Summary ---
Author Organization [facility] Address [address] [place] [address] Care Team Providers Care City Magistrate Name Role Phone Jerzy Vidal MD Primary Care Provider [phone] Encounter Details Date Type Department Care Team (Late st Contact Info) Description 08/04/2020 Lab Requisition [facility] Pathology & Laboratory Medicine - [facility] [address] [place] [address] Shon Schneider MD [address] [place] [phone] Encounter for other general examination Social History [...] Procedure Name Priority Date/Time Associated Diagnosis Comments HISTORICAL CASE UPDATE Today 08/04/2020 12:09 EST Encounter for other general examination documented in this encounter Results * HISTORICAL CASE UPDATE (08/04/2020 12:09 EST) Addendum Comment At the request of Dr. Shon Schneider, a block from [id number] (#1) was sent to [facility] for testing. Unfortunately, the sample failed testing (specimen was noted to be scant at time of send out). For [facility] failed report, please see scanned report in EPIC. 08/25/2020 11:10 EDT Original (#1) 08/25/2020 11:10 T [facility] Original Case Specimen Source Mediastinal mass 08/25/2020 11:10 [facility] Original Case Date of Service 03/22/2017 08/25/2020 11:10 [facility] Attestation By the signature below, the attending physician certifies that they have 1) personally conducted a gross and/or microscopic examination of the described specimen(s), and/or personally interpreted the results of laboratory testing of the described specimen(s), and 2) personally rendered or confirmed the above diagnosis. 08/25/2020 11:10 [facility] at 1110 Surgical pathology service (qualifier value) ENTIRE MEDIASTINUM / Unknown 08/04/2020 12:09 EST 08/04/2020 12:09 EST Shon Schneider MD PATHOLOGY ORDERABLES [facility] [address] [place] [address] documented in this encounter Visit Diagnoses Diagnosis Encounter for other general examination documented in this encounter Care Teams City Magistrate Relationship Specialty Start Date End Date Jerzy Vidal MD [address] [place] [phone] PCP - General 09/19/18 documented as of this encounter
--- OUTSIDE RECORDS SUMMARY | 2024-02-24 01:27 | XMS_ITS | Encounter Summary ---
Author Organization [facility] [place] [address] Care Team Providers Care Bpm Developer Name Role Phone Unavailable Primary Care Provider Unavailabl e Encounter Details Date Type Department Care Team (Latest Contact Info) Description 03/23/2017 - 03/23/2017 11:59 PM EDT Hospital Encounter [place] [address] Jerrod White MD [address] [place] [address] [phone] Pain Discharge Disposition: Home Social History Tobacco Use Types Packs/Day Years Used Date Smoking Tobacco: Never Assessed Sex and Gender Information Value Date Recorded Sex Assigned at Not on file Gender Identity Not on file Sexual Orientation Not on file documented as of this encounter Plan of Treatment Upcoming Encounters Date Type Department Care Team (Late st Contact Info) Description 02/24/2024 9:00 AM EDT Office Visit Hematology/Oncology at [address] [phone] Shon Schneider MD [facility] [place] [address] Ciara Pitts APRN [address] [place] [address] DR HEMATOLOGY AND ONCOLOGY [place], [place] [phone] 02/24/2024 9:30 AM EDT Infusion Hematology Oncology at [address] [phone] 03/02/2024 11:00 AM EDT Office Visit Hematology/Oncology at [address] [phone] Shon Schneider MD [facility] [place] [address] HEMATOLOGY AND ONCOLOGY [place], [place] [address] 03/02/2024 12:30 PM EDT Infusion Hematology Oncology at [address] [phone] 03/09/2024 10:00 AM EDT Office Visit Hematology/Oncology at [address] [phone] Shon Schneider MD [facility] [place] [place] [address] [address] HEMATOLOGY [place] [address] 03/09/2024 10:30 AM EDT Infusion Hematology Oncology at [address] [phone] documented as of this encounter Procedures Procedure Name Priority Date/Time Associated Diagnosis Comments FILM LIBRARY STORAGE ONLY CT ABDOMEN AND PELVIS Routine 03/23/2017 12:00 AM EDT Pain documented in this encounter Results * Film Library- Storage Only CT Abdomen & Pelvis (03/23/2017 12:00 AM EDT) Narrative [facility] - 05/17/2017 3:42 AM EST This exam is for storage only and is auto-finalizing. Jerrod White MD [facility] FILM LIBRARY ORD ERABLES [place], [place] documented in this encounter Visit Diagnoses Diagnosis Pain Generalized pain Thymic carcinoma Malignant neoplasm of thymus documented in this encounter
--- OUTSIDE RECORDS SUMMARY | 2024-02-24 01:27 | XMS_ITS | Clinical Summary ---
Author Organization [facility] Address [address] [place] [address] Care Team Providers Care Lumber Sticker Name Role Phone Jerzy Vidal MD Primary Care Provider [phone] Allergies Active Allergy Reactions Criticality Noted Date Comments Penicillins Hives Medium 03/18/2017 Medications Medication Sig Dispensed Refills Start Date End Date Status apixaban (ELIQUIS) 5 mg tablet Take 5 mg by mouth 2 times daily. Active DILTiazem (TIAZAC) 240 mg SR capsule Take 240 mg by mouth daily. Active metoprolol XL (TOPROL-XL) 200 mg tablet Take 200 mg by mouth daily. Active acetaminophen (TYLENOL) 500 mg tablet Take 2 Tabs by mouth every 6 hours as needed for Pain. 03/27/2017 Active docusate sodium (COLACE) 100 mg capsule Take 2 Caps by mouth 2 times daily as needed for Constipation. 03/27/2017 Active Additional Information Patient not taking.Reported on 04/05/2017 Multivitamins with Minerals tablet tablet Take 1 Tab by mouth daily. 03/27/2017 Active oxyCODONE (ROXICODONE) 5 mg immediate release tablet Take 1-2 Tabs by mouth every 4 hours as needed for Pain. Daily Max: 60 mg 10 Tab 03/27/2017 Active Additional Information Patient not taking.Reported on 04/05/2017 polyethylene glycol 3350 (MIRALAX) 17 gram packet Take 17 g by mouth daily. 03/27/2017 Active Additional Information Patient not taking.Reported on 04/05/2017 Active Problems Patient Care Coordination No te Formatting of this note migh t be different from the original. SHARE INFORMATION WITH CASS KNOX (DAUGHTER) [employer]SE ANY AND ALL INFORMATION PERTAINING TO PATIENT,INCLUDING FINANCIAL MATTERS PER PATIENT BRAYAN IGNACIO Problem Noted Date Diagnosed Date Lung mass 03/19/2017 SOB (shortness of breath) 03/18/2017 Social History Tobacco Use Types Packs/Day Years Used Date Smoking Tobacco: Never Smokeless Tobacco: Never Interpersonal Safety Answer Date Record ed Physically Hurt Never 01/14/2020 Verbally Threaten Not on file 01/14/2020 Sex and Gender Information Value Date Recorded Sex Assigned at Not on file Gender Identity Not on file Sexual Orientation Not on file Obstetrics History Last Filed Vital Signs Vital Sign Reading Time Taken Comments Blood Pressure 143/73 05/06/2017 1404 EST Pulse 85 05/06/2017 1404 EST Temperature 37.1 ??C (98.8 ??F) 05/06/2017 1404 EST Respiratory Rate 16 05/06/2017 1404 EST Oxygen Saturation 97% 05/06/2017 1404 EST Inhaled Oxygen Concentration - - Weight 118.2 kg (260 lb 9.6 oz) 05/06/2017 1404 EST Height 176.5 cm (5' 9.49) 05/06/2017 1404 EST Body Mass Index 37.95 05/06/2017 1404 EST Plan of Treatment Health Maintenance Due Date Last Done Comments Hepatitis C Screen 1955 RSV Immunization ( o r 60+ Years) (1 - 1-dose 60+ series) 2017 Fall Risk Screening 2022 COVID-19 Vaccine ( season) 2024, 08/28/2020 Advance Directives For more information, please contact: [phone] * Full Code (Latest Code Status on File) Date Activated Date Inactivated Comments 03/19/2017 2:26 03/27/2017 15:16 Question Answer Comments Reason for decision includes: Full code consistent with overall plan of care Who participated in the discussion? Not Discusse d * Full Code Date Activated Date Inactivated Comments 03/18/2017 21:35 03/19/2017 2:26 Question Answer Comments Reason for decision includes: Full code requested by fully informed patient Who participated in the discussion? Patient Care Teams Lumber Sticker Relationship Specialty Start Date End Date Jerzy Vidal MD [address] [place] [phone] PCP - General 09/19/18
--- OUTSIDE RECORDS SUMMARY | 2024-02-24 01:27 | XMS_ITS | Encounter Summary ---
Author Organization [facility] Address [address] [place] [address] Care Team Providers Care Imagery Intelligence Name Role Phone Jerzy Vidal MD Primary Care Provider [phone] Encounter Details Date Type Department Care Team (Late st Contact Info) Description 04/02/2022 Lab Requisition [facility] Pathology & Laboratory Medicine - [facility] [address] [place] [address] David Magallon MD [facility] [address] [place], [place] [phone] Encounter for other general examination Social History [...] Procedure Name Priority Date/Time Associated Diagnosis Comments NON BROTH MIXER/FNA CYTOLOGY Today 04/02/2022 13:56 EDT documented in this encounter Results * NON BROTH MIXER/FNA CYTOLOGY (04/02/2022 13:56 EDT) Note to Patient The following pathology results have been interpreted by your pathologist and may be available to you before your health provider has had the opportunity to review them. Please allow time for your provider to receive these results and explore management options, if applicable. 04/05/2022 15:55 [facility] Final Diagnosis A. PLEURAL FLUID, CYTOLOGIC EVALUATION: - Negative for malignant cells. - Reactive mesothelial cells and abundant histiocytes present. 04/05/2022 15:55 [facility] Attestation By the signature below, the attending physician certifies that they have personally conducted a gross and/or microscopic examination of the described specimens and rendered or confirmed the above diagnosis. 04/05/2022 15:55 [facility] at 1555 Clinical History Not listed 04/05/2022 15:55 [facility] Gross Description A. 1100cc's of clear yellow fluid were received and processed by selective cellular enhancement technique. 04/05/2022 15:55 [facility] Performing Lab [facility] 04/05/2022 15:55 [facility] Scanned Images 04/05/2022 15:55 [facility] ZZUNK PLEURAL FLUID / Unknown 04/02/2022 13:56 EDT 04/05/2022 6:28 EDT David Magallon MD PATHOLOGY ORDERAB LES [facility] [address] [place] [address] documented in this encounter Visit Diagnoses Diagnosis Encounter for other general examination documented in this encounter Care Teams Imagery Intelligence Relationship Specialty Start Date End Date Jerzy Vidal MD [address] [place] [phone] PCP - General 09/19/18 documented as of this encounter
--- OUTSIDE RECORDS SUMMARY | 2024-02-24 01:27 | XMS_ITS | Encounter Summary ---
Author Organization [facility] Address [address] [place] [address] Care Team Providers Care Crusher Tender Name Role Phone Jerzy Vidal MD Primary Care Provider [phone] Encounter Details Date Type Department Care Team (Late st Contact Info) Description 01/19/2022 Lab Requisition [facility] Pathology & Laboratory Medicine - [facility] [address] [place] [address] Outr Resulting Lab, Provider Social History Tobacco Use Types Packs/Day Years Used Date Smoking Tobacco: Never Assessed Interpersonal Safety Answer Date Record ed Physically [...] Procedure Name Priority Date/Time Associated Diagnosis Comments AFB CULTURE/SMEAR, OTHER Routine 01/19/2022 14:15 EDT FUNGUS CULTURE Routine 01/19/2022 14:15 EDT documented in this encounter Results * FUNGUS CULTURE (01/19/2022 14:15 EDT) Organism ID No fungi isolated 02/16/2022 9:44 EDT [facility] Fluid PLEURAL FLUID / Unknown 01/19/2022 14:15 EDT 01/19/2022 20:47 EDT Provider Outr Resulting Lab MICROBIOLOGY - GENERAL ORDERABLES Performing Organization Address City/[facility]/ZIP Co de Phone Number [facility] [address] [place] [address] * AFB CULTURE/SMEAR, OTHER (01/19/2022 14:15 EDT) Organism ID No acid-fast bacilli isolated VITEK SUSCEPTIBILITY 03/17/2022 9:35 EDT [facility] AFB Smear No Acid Fast Bacilli Seen 03/17/2022 9:35 EDT [facility] Fluid PLEURAL FLUID / Unknown 01/19/2022 14:15 EDT 01/19/2022 20:47 EDT Provider Outr Resulting Lab MICROBIOLOGY - GENERAL ORDERABLES Performing Organization Address City/[facility]/ZIP Co de Phone Number [facility] [address] [place] [address] documented in this encounter Visit Diagnoses Not on filedocumented in this encounter Care Teams Crusher Tender Relationship Specialty Start Date End Date Jerzy Vidal MD [address] [place] [phone] PCP - General 09/19/18 documented as of this encounter
--- OUTSIDE RECORDS SUMMARY | 2024-02-24 01:27 | XMS_ITS | Encounter Summary ---
Author Organization [facility] [place] [address] Care Team Providers Care Statistical Assistant Name Role Phone Gloria Red MD Primary Care Provider Reason for Visit * Reason Onset Date Comments Constipation 06/03/2017 Encounter Details Date Type Department Care Team (Late st Contact Info) Description 06/03/2017 Telephone Hematology/Oncology at [address] [phone] Brionna Andrade RN Constipation Social History Tobacco Use Types Packs/Day Years Used Date Smoking Tobacco: Never Smokeless Tobacco: Never Sex and Gender Information Value Date Recorded Sex Assigned at Not on file Gender Identity Not on file Sexual Orientation Not on file documented as of this encounter Miscellaneous Notes * Telephone Encounter - Brionna Andrade RN - 06/03/2017 11:33 AM EST Pt calls and states she has hard stool at end of rectum that she cannot push out. She has been taking miralax once a day for last two days. Reviewed with Desiree Curran NP . Pt can take glycerin suppository and or fleets enema. She can buy these over th counter. She can increase miralax up to 3 times a day and drink plenty of water. 6-8 glases a day. Pt agrees with plan. Will call with any further questions or concerns. documented in this encounter Plan of Treatment Upcoming Encounters Date Type Department Care Team (Late st Contact Info) Description 02/24/2024 9:00 AM EDT Office Visit Hematology/Oncology at [address] [phone] Shon Schneider MD [facility] [place] [address] [address] [place] [address] 02/24/2024 9:30 AM EDT Infusion Hematology Oncology at [address] [phone] 03/02/2024 11:00 AM EDT Office Visit Hematology/Oncology at [address] [phone] Shon Schneider MD [facility] [place] [address] HEMATOLOGY AND ONCOLOGY [place], [place] [address] 03/02/2024 12:30 PM EDT Infusion Hematology Oncology at [address] [phone] 03/09/2024 10:00 AM EDT Office Visit Hematology/Oncology at [address] [phone] Shon Schneider MD [facility] [place] [address] Ciara Pitts [address] [place] [address] 03/09/2024 10:30 AM EDT Infusion Hematology Oncology at [address] [phone] documented as of this encounter Visit Diagnoses Not on filedocumented in this encounter Care Teams Statistical Assistant Relationship Specialty Start Date End Date Gloria Red MD [address] [place] [address] [place] [phone] PCP - General Family Medicine 05/26/17 12/03/18 documented as of this encounter
--- OUTSIDE RECORDS SUMMARY | 2024-02-24 01:27 | XMS_ITS | Encounter Summary ---
Author Organization [facility] Address [address] [place] [address] Care Team Providers Care Cartridge Filler Name Role Phone Jerzy Vidal MD Primary Care Provider [phone] Encounter Details Date Type Department Care Team (Late st Contact Info) Description 08/19/2020 Lab Requisition [facility] Pathology & Laboratory Medicine - [facility] [address] [place] [address] Catarino Todd MD [address] [place] [phone] Encounter for other general examination Social History [...] No 04/05/2017 Cognitive Status Response Date of Assess ent Because of a physical, menta l, or emotional condition, does this person have serious difficulty concentrating, remembering, or making decisions? No 04/05/2017 documented as of this encounter Plan of Treatment Not on file documented as of this encounter Procedures Procedure Name Priority Date/Time Associated Diagnosis Comments NON TOOL FILER/FNA CYTOLOGY Today 08/19/2020 13:15 EST documented in this encounter Results * NON TOOL FILER/FNA CYTOLOGY (08/19/2020 13:15 EST) Final Diagnosis A. PLEURAL FLUID, CYTOLOGIC EVALUATION: - No malignant cells present. - Mixed leukocytes and mesothelial cells present. 08/20/2020 12:23 [facility] Attestation By the signature below, the attending physician certifies that they have personally conducted a gross and/or microscopic examination of the described specimens and rendered or confirmed the above diagnosis. 08/20/2020 12:23 [facility] at 1222 Clinical History Not listed 08/20/2020 12:23 [facility] Gross Description A. 100cc's of cloudy yellow fluid were received and processed by selective cellular enhancement technique. 08/20/2020 12:23 [facility] Performing Lab [facility] 08/20/2020 12:23 [facility] Scanned Images 08/20/2020 12:23 [facility] ZZUNK PLEURAL FLUID / Unknown 08/19/2020 13:15 EST 08/20/2020 6:10 EST Catarino Todd MD PATHOLOGY ORDER [facility] [address] [place] [address] documented in this encounter Visit Diagnoses Diagnosis Encounter for other general examination documented in this encounter Care Teams Cartridge Filler Relationship Specialty Start Date End Date Jerzy Vidal MD [address] [place], [place] [phone] PCP - General 09/19/18 documented as of this encounter
--- OUTSIDE RECORDS SUMMARY | 2024-02-24 01:27 | XMS_ITS | Encounter Summary ---
Author Organization [facility] Address [facility] [place] [address] Care Team Providers Care Base Remover Name Role Phone Gloria Red MD Primary Care Provider [phone] Encounter Details Date Type Department Care Team (Late st Contact Info) Description 06/01/2017 External Results [place] [phone] Provider, Scanning Social History Tobacco Use Types Packs/Day Years [...] AM EDT Office Visit Hematology/Oncology at [address] [phone] Shon Schneider MD [facility] [place] [address] Ciara Pitts APRN [address] [place] [address] DR HEMATOLOGY AND ONCOLOGY [place], [place] [phone] 02/24/2024 9:30 AM EDT Infusion Hematology Oncology at [address] [phone] 03/02/2024 11:00 AM EDT Office Visit Hematology/Oncology at [address] [phone] Shon Schneider MD [facility] [place] [address] HEMATOLOGY AND ONCOLOGY [place], [place] [address] 03/02/2024 12:30 PM EDT Infusion Hematology Oncology at [address] [phone] 03/09/2024 10:00 AM EDT Office Visit Hematology/Oncology at [address] [phone] Shon Schneider MD [facility] [place] [address] [address] HEMATOLOGY AND ONCOLOGY [place], [place] [address] 03/09/2024 10:30 AM EDT Infusion Hematology Oncology at [address] [phone] documented as of this encounter Visit Diagnoses Not on filedocumented in this encounter Care Teams Base Remover Relationship Specialty Start Date End Date Gloria Red MD [address] [place] [address] [place] [phone] PCP - General Family Medicine 05/26/17 12/03/18 documented as of this encounter
--- OUTSIDE RECORDS SUMMARY | 2024-02-24 01:27 | XMS_ITS | Encounter Summary ---
Author Organization [facility] Address [address] [place] [address] Care Team Providers Care Director Paid Media Name Role Phone Jezry Vidal MD Primary Care Provider [phone] Encounter Details Date Type Department Care Team (Late st Contact Info) Description 09/17/2022 Lab Requisition [facility] Pathology & Laboratory Medicine - [facility] [address] [place] [address] Outr Resulting Lab, Provider Social History Tobacco [...] Procedure Name Priority Date/Time Associated Diagnosis Comments HAPTOGLOBIN Routine 09/17/2022 15:30 EDT documented in this encounter Results * HAPTOGLOBIN (09/17/2022 15:30 EDT) Haptoglobin 152 32 - 197 mg/dL 09/20/2022 10:19 EDT [facility] Blood VENOUS BLOOD / Unknown 09/17/2022 15:30 EDT 09/17/2022 21:19 EDT Provider Outr Resulting Lab CHEMISTRY & BLOOD GAS ORDERABLES [facility] [address] [place] [address] documented in this encounter Visit Diagnoses Not on filedocumented in this encounter Care Teams Director Paid Media Relationship Specialty Start Date End Date Jerzy Vidal MD [address] [place] [phone] PCP - General 09/19/18 documented as of this encounter
--- OUTSIDE RECORDS SUMMARY | 2024-02-24 01:27 | XMS_ITS | Encounter Summary ---
Author Organization [facility] [place] [address] Care Team Providers Care Director Experimental Medicine Name Role Phone Gloria Red MD Primary Care Provider [phone] Reason for Visit * Reason Onset Date Comments Other 06/09/2017 Encounter Details Date Type Department Care Team (Late Contact Info) Description 06/09/2017 Telephone Hematology/Oncology at [address] [phone] Brionna Andrade RN Other Social History Tobacco Use Types Packs/Day Years Used Date Smoking Tobacco: Never Smokeless Tobacco: Never Sex and Gender Information Value Date Recorded Sex Assigned at Not on file Gender Identity Not on file Sexual Orientation Not on file documented as of this encounter Miscellaneous Notes * Telephone Encounter - Brionna Andrade RN - 06/09/2017 10:08 AM EST Pt called and concerned wether she should come and and see Dr. White as she has a runny nose, clear fluid comin out, post nasal drip and sneezing. She has had no fever or chills. I told her Dr. White would like to see her and will evaluate her at that time. She agrees with plan. documented in this encounter Plan of Treatment Upcoming Encounters Date Type Department Care Team (Late Contact Info) Description 02/24/2024 9:00 AM EDT Office Visit Hematology/Oncology at [address] [phone] Shon Schneider MD [facility] [address] [address] HEMATOLOGY AND ONCOLOGY [place], [place] [address] [phone] 02/24/2024 9:30 AM EDT Infusion Hematology Oncology at [address] [phone] 03/02/2024 11:00 AM EDT Office Visit Hematology/Oncology at [address] [phone] Shon Schneider MD [facility] [place] [address] [address] HEMATOLOGY AND ONCOLOGY [place], [place] [address] 03/02/2024 12:30 PM EDT Infusion Hematology Oncology at [address] [phone] 03/09/2024 10:00 AM EDT Office Visit Hematology/Oncology at [address] [phone] Shon Schneider MD [facility] [place] [address] Ciara Pitts [address] HEMATOLOGY AND ONCOLOGY [place], [place] [phone] 03/09/2024 10:30 AM EDT Infusion Hematology Oncology at [address] [phone] documented as of this encounter Visit Diagnoses Not on filedocumented in this encounter Care Teams Director Experimental Medicine Relationship Specialty Start Date End Date Gloria Red MD [address] [place] [address] [place] [phone] PCP - General Family Medicine 05/26/17 12/03/18 documented as of this encounter
--- OUTSIDE RECORDS SUMMARY | 2024-02-24 01:27 | XMS_ITS | Encounter Summary ---
Author Organization [facility] Address [address] [place] [address] Care Team Providers Care Homicide Squad Captain Name Role Phone Gloria Red MD Primary Care Provid er Reason for Visit * Reason Onset Date Comments Follow-up 04/12/2018 Encounter Details Date Type Department Care Team (Late Contact Info) Description 04/12/2018 Telephone [facility] Hematology & Oncology - [facility] [address] [place], [place] [phone] Kobe Deng, SEBASTIAN Follow-up Social History Tobacco Use Types Packs/Day [...] No 04/05/2017 documented as of this encounter Miscellaneous Notes * Telephone Encounter - Kobe Deng RN - 04/12/2018 1617 EDT Left her a message again that we had not seen her since 2017, so please call back and we would try and help. Kobe Deng RN documented in this encounter Plan of Treatment Not on file documented as of this encounter Visit Diagnoses Not on filedocumented in this encounter Care Teams Homicide Squad Captain Relationship Specialty Start Date End Date Gloria Red MD [address] [place] [address] [place] [address] PCP - General 04/05/17 09/18/18 documented as of this encounter
--- OUTSIDE RECORDS SUMMARY | 2024-02-24 01:27 | XMS_ITS | Encounter Summary ---
Author Organization [facility] Address [facility] [place] [address] Care Team Providers Care Location Director Name Role Phone Gloria Red MD Primary Care Provider Encounter Details Date Type Department Care Team (Latest Contact Info) Description 05/31/2017 11:17 AM EST - 05/31/2017 11:59 PM [facility] [place] [phone] Discharge Disposition: Home Social History Tobacco Use Types Packs/Day Years Used Date Smoking Tobacco: Never Smokeless Tobacco: Never Sex and Gender Information Value Date Recorded Sex Assigned at Not on file Gender Identity Not on file Sexual Orientation Not on file documented as of this encounter Medications at Time of Discharge Medication Sig Dispensed Refills Start Date End Date apixaban (Eliquis) 5 mg Tablet Take 5 mg by mouth 2 times daily. multivitamin (THERAGRAN) Tablet Take 1 tablet by mouth daily. lidocaine-prilocaine (EMLA) Cream Apply topically as needed. Please apply near area of [facility] site prior to access. 30 g 05/28/2017 09/29/2018 prochlorperazine (COMPAZINE) 5 mg Tablet Take 1 tablet by mouth every 6 hours as needed for Nausea. 15 tablet 05/28/2017 09/26/2020 meTOPROLOL succinate (TOPROL-XL) 200 mg Tablet Sustained Release 24 hrIndications:multifoc al atrial tachycardia Take 200 mg by mouth daily. Indications: Multifocal Atrial Tachycardia 01/29/2022 DILTiazem (CARDIZEM CD) 240 mg Capsule, Sust. Release 24 hrIndications:ventricu lar rate control in atrial fibrillation Take 240 mg by mouth daily. Indications: Ventricular Rate Control in Atrial Fibrillation 11/07/2022 documented as of this encounter Plan of Treatment Upcoming Encounters Date Type Department Care Team (Late st Contact Info) Description 02/24/2024 9:00 AM EDT Office Visit Hematology/Oncology at [address] [phone] Shon Schneider MD [facility] [place] [address] [address] HEMATOLOGY AND ONCOLOGY [place], [place] [phone] 02/24/2024 9:30 AM EDT Infusion Hematology Oncology at [address] [phone] 03/02/2024 11:00 AM EDT Office Visit Hematology/Oncology at [address] [phone] Shon Schneider MD [facility] [place] [address] [address] HEMATOLOGY AND ONCOLOGY [place], [place] [address] 03/02/2024 12:30 PM EDT Infusion Hematology Oncology at [address] [phone] 03/09/2024 10:00 AM EDT Office Visit Hematology/Oncology at [address] [phone] Shon Schneider MD [facility] [place] [address] Ciara Pitts [address] [place] [address] 03/09/2024 10:30 AM EDT Infusion Hematology Oncology at [address] [phone] documented as of this encounter Procedures Procedure Name Priority Date/Time Associated Diagnosis Comments NON-SYSTEM DEVELOPER ASSOCIATE MANAGER FINAL REPORT Routine 06/01/2017 11:05 AM EST SURGICAL PATHOLOGY REPORT Routine 05/31/2017 10:55 AM EST documented in this encounter Results * Non-Space Officer Final Report (06/01/2017 11:05 AM EST) Non-Space Officer Final Report [id number] ? Location: [facility] The signing pathologist has (i) examined the relevant preparation(s) for the specimen(s) and (ii) rendered or confirmed the diagnosis(es). . ? Non-Space Officer Final DIAGNOSIS See Discussion Electronically signed by: ??Cliff Jones MD Verified: ??06/09/2017 ?Cytopathologist Performed at: ??-[facility] Dept. of Pathology, [place], [place] DISCUSSION Mediastinum: anterior 4.5 cm (US-guided FNA) - A few clusters of atypical epithelioid cells, necrosis, and red blood cells are present in the single, hypocellular (cell block) slide that was received (see note). Note: A battery of immunohistochemical stains was performed on the concurrent surgical biopsy of the lesion, [id number]. For a more specific diagnosis, please see the report on [id number]. CLINICAL INFORMATION CONSULTATION CASE Mediastinum: anterior 4.5 cm (US-guided FNA) Clinical History: Never smoked, presented with SOB and was found to have a 5.0 cm mediastinal mass; evaluate for malignancy. Received 1 slide(s) labeled [id number] Received 0 block(s). Specimen collection date: ??03/22/2017. For the full text of the ?? [facility] ?? report(s), please refer to [facility]. [facility] Tracking #: ??[id number]. Surgical consult slides also received. Report to: [facility] Cytopathology [address] [place] [address] [facility] 06/01/2017 11:0 5 AM EST Jerrod White MD PATHOLOGY/CYTOLOGY O RDERASHAILESH [facility] [place] [address] * Surgical Pathology Report (05/31/2017 10:55 AM EST) Final Diagnosis [id number] ? Location: [facility] The signing pathologist has (i) examined the relevant preparation(s) for the specimen(s) and (ii) rendered or confirmed the diagnosis(es). . ?Surgical Pathology DIAGNOSIS CONSULTATION CASE Outside slide(s) labeled [id number], collection date 03/22/2017. 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 (see Discussion) Electronically signed by: ??Renetta Jacobs MD Verified: ??06/03/2017 ?Pathologist Performed at: ??-[facility] Dept. of Pathology, [place], [place] DISCUSSION Submitted immunohistochemistry studies were also reviewed. ??The lesional jhon are positive for CKAE1/3, p40, PAX8, CD117, CD5, CK7(focal) synaptophysin and chromogranin. ??Lesional cells are negative for CK20, TTF-1, GATA3 and CD34. 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 This case was also previously reviewed at [facility] ?? 's [facility]. ??This report can be found in scanned documents. CLINICAL INFORMATION Specimen Submitted: CONSULTATION CASE A - 16 slide(s) labeled [id number], collection date 03/22/2017. [id number] Cytology consult slides also received. Report to: [facility] Surgical Pathology Department [facility], 2nd Floor [address] [place], [place] ??[address] SPECIMEN PROCESSING [facility] ([facility]) pathology slide(s) are reviewed. ??Refer to Diagnosis and Specimen Submitted for specific case information. For the full text of the [facility] report(s) please refer to Non-DH Documentation Pathology in the electronic health record (eDH). 06/03/2017 4:08 PM EST [facility] Consult Case 05/31/2017 10:5 5 AM EST 05/31/2017 10:55 AM EST Jerrod White MD PATHOLOGY/CYTOLOGY O RDINDIANA [facility] [place] [address] documented in this encounter Visit Diagnoses Not on filedocumented in this encounter Care Teams Location Director Relationship Specialty Start Date End Date Gloria Red MD [address] [place] [address] [place] [phone] PCP - General Family Medicine 05/26/17 12/03/18 documented as of this encounter
--- OUTSIDE RECORDS SUMMARY | 2024-02-24 01:27 | XMS_ITS | Encounter Summary ---
Author Organization [facility] Address [address] [place] [address] Care Team Providers Care Chief Passenger Ship Steward/Stewardess Name Role Phone Gloria Red MD Primary Care Provid er Encounter Details Date Type Department Care Team (Late st Contact Info) Description 05/11/2018 Results Only Imaging [facility] [phone] Shon Schneider MD [address] [place] [address] [id number] Social History Tobacco Use Types Packs/Day Years [...] Name Priority Date/Time Associated Diagnosis Comments CT ABDOMEN, PELVIS W CONTRAST 05/11/2018 14:[address] CHEST W CONTRAST 05/11/2018 1 4:38 EST documented in this encounter Results * CT ABDOMEN, PELVIS W CONTRAST (05/11/2018 14:38 EST) Anatomical Region Laterality Modality Other 05/11/2018 14:3 8 EST 05/11/2018 16:35 EST Narrative 05/11/2018 16:[address] ABDOMEN, PELVIS W CONTRAST ??05/11/2018 2:38 PM Signs and Symptoms/Comments: ?? 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 Comparison: CT abdomen pelvis March 23, 2017, PET/CT April 18, 2017 Findings: Lower chest: See dedicated chest CT for findings above the diaphragm. Hepatobiliary: No liver lesions. Gallbladder is within normal limits. No bile duct dilatation Spleen, pancreas, adrenal glands: No suspicious lesions Kidneys, ureters, bladder: The kidneys enhance symmetrically. No nephrolithiasis or hydronephrosis. The ureters and bladder are within normal limits. Uterus, ovaries: Multiple calcified fibroids are noted in the uterus. No adnexal mass. Bowel: One wall of the transverse colon is contained within a ventral hernia (Sinha Hernia). Several loops of small bowel are also contained within a large umbilical hernia. No bowel wall thickening or obstruction. Peritoneal cavity / Subperitoneal space: No free fluid. No free air. Lymphovascular: No lymphadenopathy. Aorta and branch vessels are atherosclerotic, without aneurysmal dilation. Abdominal wall: Numerous fat and bowel containing ventral hernias and an umbilical hernia are noted, as above. Musculoskeletal: Lytic and sclerotic lesions in the spine are unchanged. Impression: 1. ??Unchanged lytic and sclerotic lesions in the spine. No new metastatic disease or lymphadenopathy in the abdomen or pelvis. 2. ??Fibroid uterus. 3. ??Fat and bowel containing ventral and umbilical hernias, without evidence of obstruction or strangulation. I have personally reviewed the images and the above interpretation and agree with the findings. Procedure Note Iftikhar Barrera MD - 05/11/2018 CT ABDOMEN, PELVIS W CONTRAST 05/11/2018 2:38 PM Signs and Symptoms/Comments: Thymic Carcinoma, pleural metastasis. Stage IV thymic carcinoma, on chemotherapy Restaging *please push images to [facility] FILM Library* Technique: CT of the abdomen and pelvis was performed following the administration intravenous an oral contrast; coronal and sagittal multiplanar reconstructions generated. Comparison: CT abdomen pelvis March 23, 2017, PET/CT April 18, 2017 Findings: Lower chest: See dedicated chest CT for findings above the diaphragm. Hepatobiliary: No liver lesions. Gallbladder is within normal limits. No bile duct dilatation Spleen, pancreas, adrenal glands: No suspicious lesions Kidneys, ureters, bladder: The kidneys enhance symmetrically. No nephrolithiasis or hydronephrosis. The ureters and bladder are within normal limits. Uterus, ovaries: Multiple calcified fibroids are noted in the uterus. No adnexal mass. Bowel: One wall of the transverse colon is contained within a ventral hernia (Sinha Hernia). Several loops of small bowel are also contained within a large umbilical hernia. No bowel wall thickening or obstruction. Peritoneal cavity / Subperitoneal space: No free fluid. No free air. Lymphovascular: No lymphadenopathy. Aorta and branch vessels are atherosclerotic, without aneurysmal dilation. Abdominal wall: Numerous fat and bowel containing ventral hernias and an umbilical hernia are noted, as above. Musculoskeletal: Lytic and sclerotic lesions in the spine are unchanged. Impression: 1. Unchanged lytic and sclerotic lesions in the spine. No new metastatic disease or lymphadenopathy in the abdomen or pelvis. 2. Fibroid uterus. 3. Fat and bowel containing ventral and umbilical hernias, without evidence of obstruction or strangulation. I have personally reviewed the images and the above interpretation and agree with the findings. 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 ??The scans were obtained from the lung apices through the bases during the intravenous administration of 70-100 cc of 350-370 mg% nonionic contrast injected at a rate of 2 cc/second. Scans were reviewed on a dedicated PACS workstation for analysis. Exam description: CT of the chest with contrast Comparison: 12/28/2017 Findings: Lower neck: No abnormalities. Chest wall soft tissues: Stable mass within the left breast. Mediastinum and william: Overall there is minimal change in the mass within the anterior mediastinum extending from just above the level of the left brachiocephalic vein to the aortopulmonary recess, with multiple regions of punctate and amorphous calcification. At the same level in the axial plane, the mass currently measures 3.9 x 3.4 cm, previously 8.9 x 3.1 cm. There are stable nodular lesion/lymph nodes in the left cardiophrenic space adjacent to the pericardium, and an enlarged left pericardiophrenic lymph node (image 149) no new or enlarging mediastinal lymph nodes. Heart and mediastinal vasculature: ??The mediastinal mass extends to and likely invades the prior pole pericardium anteriorly, though similar compared to the prior examination. There is a stable amount of small adjacent pericardial fluid. Large airways: ??Mildly thickened, with scattered secretions. Lungs: ??Stable nodular lesions along the left major fissure and in the left inferior pulmonary ligament. No new lung nodules. There are scattered regions of scarring/atelectasis. Mild heterogeneity of the lung parenchyma. Pleura: Left-sided pleural thickening and pleural nodules are not significantly changed compared to the prior examination. There is a tiny amount of pleural fluid, also unchanged. Upper abdomen (limited to upper abdomen, not optimized for abdominal imaging): No abnormalities. Bones: ??No visible osseous metastatic lesions. Impression: 1. ??Overall minimal change of the anterior mediastinal mass compared to the prior examination, currently measuring 8.9 x 3.4 cm, previously 0.9 x 3.1 cm. The mass likely invades the parietal pericardium, with separate small implants or lymph nodes nodes along the lower portion of the anterior pericardium, and a separate enlarged left cardiophrenic lymph node. Left pleural thickening and pleural nodules are not significantly changed compared to the prior examination. 2. ??Stable left breast mass. This was previously biopsied with out demonstration of malignancy. 3. ??Stable small nodules in the left major fissure and along the left inferior pulmonary ligament. Procedure Note John Ross MD - 05/11/2018 CT CHEST W CONTRAST 05/11/2018 2:38 PM Clinical History/Comments: Thymic Carcinoma, pleural metastasis. Stage IV thymic carcinoma, on chemotherapy Restaging *please push images to [facility] FILM Library* Technique: A single breath-hold helical CT acquisition was performed through the chest on a multidetector-row scanner with a reconstructed slice thickness of 3 mm and retrospectively reconstructed 0.9 mm thick sections with 0.45 mm overlapping intervals. The scans were obtained from the lung apices through the bases during the intravenous administration of 70-100 cc of 350-370 mg% nonionic contrast injected at a rate of 2 cc/second. Scans were reviewed on a dedicated PACS workstation for analysis. Exam description: CT of the chest with contrast Comparison: 12/28/2017 Findings: Lower neck: No abnormalities. Chest wall soft tissues: Stable mass within the left breast. Mediastinum and william: Overall there is minimal change in the mass within the anterior mediastinum extending from just above the level of the left brachiocephalic vein to the aortopulmonary recess, with multiple regions of punctate and amorphous calcification. At the same level in the axial plane, the mass currently measures 3.9 x 3.4 cm, previously 8.9 x 3.1 cm. There are stable nodular lesion/lymph nodes in the left cardiophrenic space adjacent to the pericardium, and an enlarged left pericardiophrenic lymph node (image 149) no new or enlarging mediastinal lymph nodes. Heart and mediastinal vasculature: The mediastinal mass extends to and likely invades the prior pole pericardium anteriorly, though similar compared to the prior examination. There is a stable amount of small adjacent pericardial fluid. Large airways: Mildly thickened, with scattered secretions. Lungs: Stable nodular lesions along the left major fissure and in the left inferior pulmonary ligament. No new lung nodules. There are scattered regions of scarring/atelectasis. Mild heterogeneity of the lung parenchyma. Pleura: Left-sided pleural thickening and pleural nodules are not significantly changed compared to the prior examination. There is a tiny amount of pleural fluid, also unchanged. Upper abdomen (limited to upper abdomen, not optimized for abdominal imaging): No abnormalities. Bones: No visible osseous metastatic lesions. Impression: 1. Overall minimal change of the anterior mediastinal mass compared to the prior examination, currently measuring 8.9 x 3.4 cm, previously 0.9 x 3.1 cm. The mass likely invades the parietal pericardium, with separate small implants or lymph nodes nodes along the lower portion of the anterior pericardium, and a separate enlarged left cardiophrenic lymph node. Left pleural thickening and pleural nodules are not significantly changed compared to the prior examination. 2. Stable left breast mass. This was previously biopsied with out demonstration of malignancy. 3. Stable small nodules in the left major fissure and along the left inferior pulmonary ligament. Shon Schneider MD IMG CT ORDERABLES documented in this encounter Visit Diagnoses Not on filedocumented in this encounter Care Teams Chief Passenger Ship Steward/Stewardess Relationship Specialty Start Date End Date Gloria Red MD [address] [place] [address] [place] [address] PCP - General 04/05/17 09/18/18 documented as of this encounter
--- OUTSIDE RECORDS SUMMARY | 2024-02-24 01:27 | XMS_ITS | Encounter Summary ---
Author Organization [facility] Address [address] [place] [address] Care Team Providers Care Biofuels Production Technician Name Role Phone Jerzy Vidal MD Primary Care Provider [phone] Encounter Details Date Type Department Care Team (Late st Contact Info) Description 01/27/2022 Lab Requisition [facility] Pathology & Laboratory Medicine - [facility] [address] [place] [address] Outr Resulting Lab, Provider Social History Tobacco [...] Procedure Name Priority Date/Time Associated Diagnosis Comments AST Routine 01/27/2022 11:50 EDT documented in this encounter Results * AST (01/27/2022 11:50 EDT) AST 31 15 - 46 U/L 01/28/2022 21:46 EDT [facility] Blood VENOUS BLOOD / Unknown 01/27/2022 11:50 EDT 01/28/2022 21:29 EDT Provider Outr Resulting Lab CHEMISTRY & BLOOD GAS ORDERABLES Performing Organization Address City/State/[facility] Co de Phone Number [facility] [address] [place] [address] documented in this encounter Visit Diagnoses Not on filedocumented in this encounter Care Teams Biofuels Production Technician Relationship Specialty Start Date End Date Jerzy Vidal MD [address] [place] [phone] PCP - General 09/19/18 documented as of this encounter
--- OUTSIDE RECORDS SUMMARY | 2024-02-24 01:27 | XMS_ITS | Encounter Summary ---
Author Organization [facility] [place] [address] Care Team Providers Care Audio Visual Production Specialist Name Role Phone Gloria Red MD Primary Care Provider [phone] Reason for Visit * Reason Comments Chemotherapy Carbo/Taxol, Cycle 1 , Day 1 * Treatment/Therapy Plan Authorization (Routine) - Closed Specialty Diagnoses / Procedures Referred By Contdelphine t Referred To Contact Hematology and Oncology Diagnoses Thymic carcinoma Procedures TC PALONOSETRON HCL, 25MCG, INJECTION (ALOXI) TC FOSAPREPITANT, 1MG, INJECTION (EMEND) TC CARBOPLATIN, 50MG, INJECTION (PARAPLATIN) TC PACLITAXEL, 1MG, INJ TC PEGFILGRASTIM, 6MG, INJECTION Jerrod White MD [address] [place] [id number] [facility] Hem Onc Office [address] [place] [phone] Referral ID Status Reason Start Date Expiration Date Visits Re quested Visits Authorized [id number] Closed 05/27/2017 08/26/2018 18 18 Encounter Details Date Type Department Care Team ([facility] st Contact Info) Description 05/30/2017 8:00 AM EST Infusion Hematology Oncology at [address] [phone] Thymic carcinoma Social History Tobacco Use Types Packs/Day Years Used Date Smoking Tobacco: Never Smokeless Tobacco: Never Sex and Gender Information Value Date Recorded Sex Assigned at Not on file Gender Identity Not on file Sexual Orientation Not on file documented as of this encounter Progress Notes * Marguerite Calvo RN - 05/30/2017 8:00 AM EST INFUSION THERAPY ADMINISTRATION NOTES DIAGNOSIS: Thymic carcinoma CYCLE # 1, Day 1 REASON FOR VISIT: Carbo/Taxol infusion SUBJECTIVE Monica offers no complaints. OBJECTIVE LAB DATA: WBC 7.5, HGB 14.4, PLTS 197, ANC 5.58, Creat 0.5 IV ACCESS: Mediport Pre administration: Chemotherapy orders independently verified for drug name, route, and dosage per patient's height, weight and BSA by Marguerite Calvo RN & Josh [facility]. REACTIONS (DESCRIPTION, TIME, INTERVENTION AND EFFECTIVENESS) none ASSESSMENT Monica was awake, alert and tolerated treatment well. PLAN Return to clinic per routine. Pt. chemo teaching instructions included: During clinic hours (8am-5pm Tuesday-Tuesday): pt. can call [phone] with questions or concerns. After clinic hours (5pm-8am Tuesday-Tuesday and weekends) pt can call [phone] and ask for the cook chef/oncologist certified registered nurse practitioner. Monica Jaramillo verbalized understanding of potential chemotherapy [...] to take prescription medications given for home use after chemotherapy. documented in this encounter Plan of Treatment Upcoming Encounters Date Type Department Care Team (Late st Contact Info) Description 02/24/2024 9:00 AM EDT Office Visit Hematology/Oncology at [address] [phone] Shon Schneider MD [facility] [place] [address] [address] HEMATOLOGY AND ONCOLOGY [place], [place] [address] 02/24/2024 9:30 AM EDT Infusion Hematology Oncology at [address] [phone] 03/02/2024 11:00 AM EDT Office Visit Hematology/Oncology at [address] [phone] Shon Schneider MD [facility] [place] [address] [address] HEMATOLOGY AND ONCOLOGY [place], [place] [phone] 03/02/2024 12:30 PM EDT Infusion Hematology Oncology at [address] [phone] 03/09/2024 10:00 AM EDT Office Visit Hematology/Oncology at [address] [phone] Shon Schneider MD [facility] [place] [address] [address] HEMATOLOGY AND ONCOLOGY [place], [place] [phone] 03/09/2024 10:30 AM EDT Infusion Hematology Oncology at [address] [phone] documented as of this encounter Visit Diagnoses [...] = 6), Intravenous, ONCE, 1 dose, On Tue05/30/17 at 1000, Administer over 30 Minutes, Hold Parameters: CARBOplatin, Call provider for serum creatinine less than (mg/dL): .2, Call provider for serum creatinine greater than (mg/dL): 2, External serum creatinine results used to calculate dose? Yes, Enter serum creatinine value (mg/dL): .5, Enter serum creatinine result date: 05/26/2017 New Bag 05/30/2017 1:44 PM EST 900 mg 680 mL/hr dexamethasone (DECADRON) injection 10 mg 10 mg, Intravenous, ONCE, 1 dose, On Tue05/30/17 at 0900, Administer 30 minutes prior to PACLitaxel Given 05/30/2017 9:33 AM EST 10 mg diphenhydrAMINE (BENADRYL) injection 25 mg 25 mg, Intravenous, ONCE, 1 dose, On Tue05/30/17 at 0900, Administer 30 minutes prior to PACLitaxel, Routine Given 05/30/2017 9:36 AM EST 25 mg famotidine (PEPCID) injection 20 mg 20 mg, Intravenous, ONCE, 1 dose, On Tue05/30/17 at 0900, Administer 30 minutes prior to PACLitaxel Given 05/30/2017 9:30 AM EST 20 mg fosaprepitant (EMEND) 150 mg in sodium chloride 0.9% 155 mL infusion 150 mg, Intravenous, at 310 mL/hr, Administer over 30 Minutes, ONCE, 1 dose, On Tue05/30/17 at 0900, Routine New Bag 05/30/2017 9:42 AM EST 150 mg 310 mL/hr heparin, porcine 100 unit/mL flush 500 Units 500 Units, Intravenous, ONCE PRN, Starting on Tue05/30/17 at 0839, Until Tue05/30/17 at 1917, Line Care, Refer to Intravenous (IV) Procedure: Accessing Implanted Vascular Access Devices (544) procedure and/or Intravenous (IV) Job Aid: Adult Flushing & Catheter Care (5458) job aid for additional information regarding guidelines and administration., Routine Given 05/30/2017 2:15 PM EST 500 Units PACLitaxel (TAXOL) 480 mg in sodium chloride 0.9% Non-PVC 580 mL chemo infusion 480 mg (200 mg/m2/dose ? 2.4 m2 Treatment Plan BSA from Recorded weight), Intravenous, ONCE, 1 dose, On Tue05/30/17 at 1000, Administer over 3 Hours, Warning Vesicant/Irritant Medication New Bag 05/30/2017 10:33 AM EST 480 mg 193 mL/hr palonosetron (ALOXI) injection 0.25 mg 0.25 mg, Intravenous, ONCE, 1 dose, On Tue05/30/17 at 0900, Administer over 30 seconds. Administer prior to chemotherapy, Routine Given 05/30/2017 9:28 AM EST 0.25 mg pegfilgrastim (NEULASTA) injection 6 mg 6 mg, Subcutaneous, ONCE, 1 dose, On Tue05/30/17 at 0900, Bring to room temperature 15-30 mins before administration. , Routine Given 05/30/2017 1:44 PM EST 6 mg Right Arm sodium chloride 0.9 % flush 5-20 mL 5-20 mL, Intravenous, EVERY 1 MIN PRN, Starting on Tue05/30/17 at 0839, Until Tue05/30/17 at 1917, Line Care, Flush pertains to all indwelling lines. Flush per protocol found in the job aid using the link provided on this medication record. Refer to Intravenous (IV) Job Aid: Adult Flushing & Catheter Care (2626) job aid for additional information regarding guidelines and administration., Routine Given 05/30/2017 2:15 PM EST 20 mLs documented in this encounter Care Teams Audio Visual Production Specialist Relationship Specialty Start Date End Date Gloria Red MD [address] [place] [address] [place] [phone] PCP - General Family Medicine 05/26/17 12/03/18 documented as of this encounter
--- OUTSIDE RECORDS SUMMARY | 2024-02-24 01:27 | XMS_ITS | Encounter Summary ---
Author Organization [facility] Address [address] [place] [address] Care Team Providers Care Internet Retailer Name Role Phone Jerzy Vidal MD Primary Care Provider [phone] Encounter Details Date Type Department Care Team (Late st Contact Info) Description 08/19/2020 Lab Requisition [facility] Pathology & Laboratory Medicine - [facility] [address] [place] [address] Outr Resulting Lab, Provider Social History Tobacco [...] Procedure Name Priority Date/Time Associated Diagnosis Comments LDH, FLUID Routine 08/19/2020 9:30 EST documented in this encounter Results * LDH, FLUID (08/19/2020 9:30 EST) LDH, Fluid 362 See Note IU/L 08/19/2020 22:37 EST [facility] Comment: Reference range unavailable. Clinical correlation required. This Fluid LDH assay was developed and its performance characteristics determined by [facility]. ??It has not been cleared or approved by the US Food and Drug Administration. Fluid PLEURAL FLUID / Unknown 08/19/2020 9:30 EST 08/19/2020 21:52 EST Narrative [facility] - 08/19/2020 22:37 EST Pleural Fluid Provider Outr Resulting Lab GEN LAB UNIT COLLECT ORDERABLES [facility] [address] [place] [address] documented in this encounter Visit Diagnoses Not on filedocumented in this encounter Care Teams Internet Retailer Relationship Specialty Start Date End Date Jerzy Vidal MD [address] [place] [phone] PCP - General 09/19/18 documented as of this encounter
--- OUTSIDE RECORDS SUMMARY | 2024-02-24 01:27 | XMS_ITS | Encounter Summary ---
Author Organization [facility] Address [address] [place] [address] Care Team Providers Care Wrapper Selector Name Role Phone Jerzy Vidal MD Primary Care Provider [phone] Reason for Referral * (Routine/Next Available) - Receiving Office to Obtain Authorization Specialty Diagnoses / Procedures Referred By Contac t Referred To Contact Procedures CT OUTSIDE IMAGES CHEST Unknown, ProviderMD Referral ID Status Reason Start Date Expiration Date Visits Requested Visits Authorized [id number] Receiving Office to Obtain Authorization 3 1 1 Reason for Visit * (Routine/Next Available) - Receiving Office to Obtain Authorization Specialty Diagnoses / Procedures Referred By Contac t Referred To Contact Procedures CT OUTSIDE IMAGES CHEST Unknown, MD Jennifer Referral ID Status Reason Start Date Expiration Date Visits Requested Visits Authorized [id number] Receiving Office to Obtain Authorization 3 1 1 Encounter Details Date Type Department Care Team (Latest Contact Info) Description 04/26/2023 17:11 EST - 04/26/2023 23:59 EST Hospital Encounter [facility] [place] Discharge Disposition: Home or Self Care Social History Tobacco Use Types Packs/Day Years [...] No 04/05/2017 documented as of this encounter Medications at [...] Discharge Disposition Disposition Code Departure Means Destination Home or Self Care documented in this encounter Plan of Treatment Not on file documented as of this encounter Procedures Procedure Name Priority Date/Time Associated Diagnosis Comments CT OUTSIDE IMAGES CHEST Routine 04/26/2023 17:11 EST documented in this encounter Results * CT OUTSIDE IMAGES CHEST (04/26/2023 17:11 EST) Narrative 04/26/2023 17:11 EST This is a non-reportable exam. Provider Unknown MD LOPEZ OTHER IMAGING OR DERABLES documented in this encounter Visit Diagnoses Not on filedocumented in this encounter Care Teams Wrapper Selector Relationship Specialty Start Date End Date Jerzy Vidal MD [address] [place] [phone] PCP - General 09/19/18 documented as of this encounter
--- OUTSIDE RECORDS SUMMARY | 2024-02-24 01:27 | XMS_ITS | Encounter Summary ---
Author Organization [facility] Address [address] [place] [address] Care Team Providers Care Hand Cigar Maker Name Role Phone Gloria Red MD Primary Care Provid er Encounter Details Date Type Department Care Team (Late st Contact Info) Description 08/17/2017 Results Only Imaging [facility] [phone] Jerrod White MD [address] [facility] [place] [phone] Social History Tobacco Use Types Packs/Day Years [...] Priority Date/Time Associated Diagnosis Comments CT CHEST W CONTRAST 08/17/2017 1 0:01 EST documented in this encounter Results * CT CHEST W CONTRAST (08/17/2017 10:01 EST) Anatomical Region Laterality Modality Other 08/17/2017 10:0 1 EST 08/17/2017 11:50 EST Narrative 08/17/2017 11:[address] CHEST W CONTRAST ??08/17/2017 10:01 AM Clinical History/Comments: Malignant thyoma post [...] mm. No new or enlarging mediastinal lymph nodes. ? Heart and mediastinal vasculature: ??Scattered calcified plaques of the coronary arteries and aorta, left atrial enlargement. Trace pericardial effusion is stable. Large airways: ??Mildly thickened. Lungs: ??Atelectasis or scarring in the lingula, and scattered [...] bowel loops, incompletely included on this scan. Bones: ??No significant abnormalities. Scattered, hypodense thoracic spine lesions probably reflect hemangiomas. Impression: 1. ??Overall, mild changes compared to the PET/CT from 04/18/2017. The partly calcified large multilobulated anterior mediastinal mass is not significantly changed, nor the left pleural thickening and pleural masses. However, the left pleural effusion is smaller, and the left cardiophrenic lymph node has decreased in size. No new or enlarging lesions in the chest. 2. ??Stable left breast mass. 3. ??Additional findings as above. Procedure Note John Ross MD - 08/17/2017 CT CHEST W CONTRAST 08/17/2017 10:01 AM Clinical History/Comments: Malignant thyoma post [...] mm. No new or enlarging mediastinal lymph nodes. Heart and mediastinal vasculature: Scattered calcified plaques of the coronary arteries and aorta, left atrial enlargement. Trace pericardial effusion is stable. Large airways: Mildly thickened. Lungs: Atelectasis or scarring in the lingula, and scattered [...] bowel loops, incompletely included on this scan. Bones: No significant abnormalities. Scattered, hypodense thoracic spine lesions probably reflect hemangiomas. Impression: 1. Overall, mild changes compared to [...] breast mass. 3. Additional findings as above. Jerrod White MD IMG CT ORDERABLES documented in this encounter Visit Diagnoses Not on filedocumented in this encounter Care Teams Hand Cigar Maker Relationship Specialty Start Date End Date Gloria Red MD [address] [place] [address] [place] [address] PCP - General 04/05/17 09/18/18 documented as of this encounter
--- OUTSIDE RECORDS SUMMARY | 2024-02-24 01:27 | XMS_ITS | Encounter Summary ---
Author Organization [facility] Address [address] [place] [address] Care Team Providers Care X Ray Equipment Servicer Name Role Phone Jerzy Vidal MD Primary Care Provider [phone] Encounter Details Date Type Department Care Team (Late st Contact Info) Description 10/06/2022 Lab Requisition [facility] Pathology & Laboratory Medicine - [facility] [address] [place] [address] Outr Resulting Lab, Provider Social History Tobacco [...] Priority Date/Time Associated Diagnosis Comments HAPTOGLOBIN Routine 10/06/2022 10:14 EDT documented in this encounter Results * HAPTOGLOBIN (10/06/2022 10:14 EDT) Haptoglobin 144 32 - 197 mg/dL 10/07/2022 9:57 EDT [facility] Blood VENOUS BLOOD / Unknown 10/06/2022 10:14 EDT 10/06/2022 21:51 EDT Provider Outr Resulting Lab CHEMISTRY & BLOOD GAS ORDERABLES [facility] [address] [place] [address] documented in this encounter Visit Diagnoses Not on filedocumented in this encounter Care Teams X Ray Equipment Servicer Relationship Specialty Start Date End Date Jerzy Vidal MD [address] [place] [phone] PCP - General 09/19/18 documented as of this encounter
--- OUTSIDE RECORDS SUMMARY | 2024-02-24 01:27 | XMS_ITS | Encounter Summary ---
Author Organization [facility] [place] [address] Care Team Providers Care Intelligence Group Supervisor Name Role Phone Gloria Red MD Primary Care Provider [phone] Reason for Visit * Reason Comments Cancer Encounter Details Date Type Department Care Team (Late st Contact Info) Description 06/09/2017 12:30 PM EST Office Visit Hematology/Oncology at [address] [phone] Jerrod White MD [address] [place] [address] Thymic carcinoma Social History Tobacco Use Types Packs/Day Years Used Date Smoking Tobacco: Never Smokeless Tobacco: Never Sex and Gender Information Value Date Recorded Sex Assigned at Not on file Gender Identity Not on file Sexual Orientation Not on file documented as of this encounter Last Filed Vital Signs Vital Sign Reading Time Taken Comments Blood Pressure 145/88 06/09/2017 12:38 PM EST Pulse 110 06/09/2017 12:38 PM EST Temperature 37.1 ??C (98.8 ??F) 06/09/2017 12:[address] Respiratory Rate 18 06/09/2017 12:38 PM EST Oxygen Saturation 99% 06/09/2017 12:38 PM EST Inhaled Oxygen Concentration - - Weight 114.3 kg (252 lb) 06/09/2017 12:38 PM EST Height 176.5 cm (5' 9.49) 06/09/2017 12:[address] copied Body Mass Index 36.69 06/09/2017 12:38 PM EST documented in this encounter Progress Notes * Jerrod White MD - 06/09/2017 12:30 PM EST Diagnosis: 1) 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 She tolerated the treatment as one would expect. She felt good for about 36 to 48 hours and then had fairly significant myalgias and arthralgias for 48 hours after that. Those resolved. She had a good weekend then, and has been a bit fatigued, although slowly getting better. She has noticed a bit of a runny nose but no other symptoms, no sore throat. She had a low-grade temperature to about 100.4 48 hours after her chemotherapy, consistent with the Neulasta injection. Overall, she tolerated things quite well and is optimistic today as things are starting to get better. She has not had any hair loss yet. She was a bit constipated and used a glycerine suppository. We talked about signs and symptoms to look out for such as neutropenic fever or any evidence of bleeding or petechia. I think she has a good understanding of things. Past Medical History: Diagnosis Date ??? Atrial [...] upon request. Final classification is deferred to resection.?Patent Leather Sorter slides of this case were reviewed at the intradepartmental consultation conference. Immunoperoxidase stains were performed on this case to further characterize the lesion. ANTIBODY(CLONE)(BLOCK):RESULT Ckit (CD117) (EP10, Leica) (2): Positive CD5 (Rabbit Monoclonal, clone SP19, Thermo Scientific) (2): Positive PAX-8 (MRQ-50, Echelon) (2): Positive P40 (BC28, Echelon) (2): Positive Keratin AE1-AE3 (AE1-AE3, Biocare) (2): Positive Chromogranin (LK2H10, Echelon) (2): Positive Synaptophysin (27G12, Leica) (2): Positive MIB-1 (DAKO) (MIB-1, Dako) (2): 5-15% nuclei positive CK7 (RN7, Leica) (2): Negative CK20 (Ks20.8, Leica) (2): Negative TTF-1 (8G7G3/1, Echelon) (2): Negative GATA3 (L50-823, Echelon) (2): Negative CD34 (QBEnd/10, Leica) (2): Negative CASE: [id number] Second Opinion PATIENT: MONICA PIERRE [facility] Department of Pathology [address] [place] [address] License No.: [id number] Software Development Engineer: Dr. Juan Jose Mcleod Physician: EDVIN SYED M.D. Resident: Natali Flores?Pee Calle., Ph.D. Pathologist:? Bhargavi Gil M.D. PATHOLOGIC DIAGNOSIS: CONSULT SLIDES FROM [facility]; [place], [place]: A. MEDIASTINUM, MASS, BIOPSY ([id number]; 03/22/2017): ? 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 ?Immunohistochemistry performed at the outside institution and reviewed ?at [facility] demonstrates the following staining profile in lesional cells: ? Positive - AE1/AE3, p40, PAX8, CD117, CD5(multifocal), ?CK7(scattered cells), synaptophysin, chromogranin ? Negative - CK20, TTF-1, GATA3, CD34 ? The immunohistochemical profile supports the above diagnosis. ? Ki67 (MIB-1) proliferation index performed at the referring ?institution and reviewed at [facility] is [...] chain myosin and P63, confirming their benign nature.?Patent Leather Sorter slides of this case were reviewed at the intradepartmental consultation conference.?(Dr. Bond)/[facility] PET CT EYE TO THIGH?04/18/2017 2:03 PM Signs and Symptoms/Comments:? C7A.8-Other malignant neuroendocrine tumors (HCC)-ICD-10 D79-Dviidceyx neoplasm of thymus (HCC)-ICD-10; thymic squamous cell ca, thymic neuroendocrine tumor, vertebral body lesions concerning for mets . Comparison: CT of the abdomen and pelvis from 03/23/2017, CT of the chest from 03/18/2017, ultrasound guided breast biopsy from 03/25/2017 Technique: Approximately 91 minutes following the IV injection of 15 mCi of C61-ujocyzwjakmvadzjqm, 3D TOF PET imaging was obtained from the head to the upper thighs with attenuation correction using a [employer] [place]ore dedicated closed ring PET / [...] 480 mg pegfilgrastim (NEULASTA) SubQ 6 mg ASSESSMENT/PLAN: Monica has really done quite well with her first chemotherapy. Antiemetics were adequate, so there is no need to change anything there. I think she is managing her post chemotherapy symptoms well and has a very good attitude and that certainly will go a long way to help her through this chemotherapy. We will be seeing her back on the 8 with lab for cycle 2 and plans are to restage her with another scan after 4 cycles or 3 months of treatment. She remains asymptomatic from the tumor. documented in this encounter Plan of Treatment Upcoming Encounters Date Type Department Care Team (Late st Contact Info) Description 02/24/2024 9:00 AM EDT Office Visit Hematology/Oncology at [address] [phone] Shon Schneider MD [facility] [place] [address] HEMATOLOGY AND ONCOLOGY [place], [place] [address] 02/24/2024 9:30 AM EDT Infusion Hematology Oncology at [address] [phone] 03/02/2024 11:00 AM EDT Office Visit Hematology/Oncology at [address] [phone] Shon Schneider MD [facility] [place] [address] [place] [address] 03/02/2024 12:30 PM EDT Infusion Hematology Oncology at [address] [phone] 03/09/2024 10:00 AM EDT Office Visit Hematology/Oncology at [address] [phone] Shon Schneider MD [facility] [place] [address] Ciara Pitts APRN [address] [place] [address] [place] [address] 03/09/2024 10:30 AM EDT Infusion Hematology Oncology at [address] [phone] documented as of this encounter Procedures Procedure Name Priority Date/Time Associated Diagnosis Comments DIAGNOSTIC RADIOLOGY SCAN 03/22/2017 12:00 AM EDT documented in this encounter Results * SCAN DOC: DIAGNOSTIC RADIOLOGY (03/22/2017 12:00 AM EDT) Anatomical Region Laterality Modality Other Narrative 03/22/2017 12:00 AM EDT Ordered by an unspecified provider. 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 documented in this encounter Care Teams Intelligence Group Supervisor Relationship Specialty Start Date End Date Gloria Red MD [address] [place] [address] [place] [phone] PCP - General Family Medicine 05/26/17 12/03/18 documented as of this encounter
--- OUTSIDE RECORDS SUMMARY | 2024-02-24 01:27 | XMS_ITS | Referral Summary ---
Author Organization [facility] Address [address] [place] [address] Care Team Providers Care Product Control And Logistics Analyst Name Role Phone Jerzy Vidal MD Primary Care Provider [phone] Allergies Active Allergy Reactions Criticality Noted Date [...] TO PATIENT,INCLUDING FINANCIAL MATTERS PER PATIENT BRAYAN PIERRE Problem Noted Date Diagnosed Date Lung mass [...] Body Mass Index 37.95 05/06/2017 1404 EST Functional Status Functional Status Response Date of [...] concentrating, remembering, or making decisions? No 04/05/2017 Plan of Treatment Not on file Advance Directives For more information, please contact: [phone] * Full Code (Latest Code Status on [...] participated in the discussion? Patient Care Teams Product Control And Logistics Analyst Relationship Specialty Start Date End Date Jerzy Vidal MD [address] [place] [phone] PCP - General 09/19/18
--- OUTSIDE RECORDS SUMMARY | 2024-02-24 01:27 | XMS_ITS | Encounter Summary ---
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
--- OUTSIDE RECORDS SUMMARY | 2024-02-24 01:27 | XMS_ITS | Encounter Summary ---
Author Organization [facility] Address [address] [place] [address] Care Team Providers Care Seal Extrusion Operator Name Role Phone Gloria Red MD Primary Care Provid er Encounter Details Date Type Department Care Team (Late st Contact Info) Description 12/13/2017 Results Only Imaging [facility]- PRISM [phone] Jerrod White MD [address] [facility] [phone] Social History Tobacco Use Types Packs/Day Years [...] Associated Diagnosis Comments CT CHEST W CONTRAST 12/28/2017 1 4:41 EDT documented in this encounter Results * CT CHEST W CONTRAST (12/28/2017 14:41 EDT) Anatomical Region Laterality Modality Other 12/28/2017 14:4 1 EDT 12/28/2017 15:33 EDT Narrative 12/28/2017 15:[address] CHEST W CONTRAST ??12/28/2017 2:41 PM Signs and Symptoms/Comments: ??Thymic carcinoma. Technique: A single breath-hold helical CT [...] 2. Coronary atherosclerosis. 3. Left atrial enlargement. Procedure Note Tom Cade MD - 12/28/2017 CT CHEST W CONTRAST 12/28/2017 2:41 PM Signs and Symptoms/Comments: Thymic carcinoma. Technique: A single breath-hold helical CT [...] 2. Coronary atherosclerosis. 3. Left atrial enlargement. Jerrod White MD IMG CT ORDERABLES documented in this encounter Visit Diagnoses Not on filedocumented in this encounter Care Teams Seal Extrusion Operator Relationship Specialty Start Date End Date Gloria Red MD [address] [place] [address] [place] [address] PCP - General 04/05/17 09/18/18 documented as of this encounter
--- OUTSIDE RECORDS SUMMARY | 2024-02-24 01:27 | XMS_ITS | Encounter Summary ---
Author Organization [facility] [place] [address] Care Team Providers Care Angiographer Name Role Phone Unavailable Primary Care Provider Unavailabl e Encounter Details Date Type Department Care Team (Latest Contact Info) Description 04/18/2017 - 04/18/2017 11:59 PM EST Hospital Encounter [place] [phone] Jerrod White MD [address] [place] [phone] Pain Discharge Disposition: Home Social History Tobacco [...] AM EDT Office Visit Hematology/Oncology at [address] [phone] Shon Schneider MD [facility] [place] [address] Ciara Pitts APRN [address] [place] [address] DR HEMATOLOGY AND ONCOLOGY [place], [place] [phone] 02/24/2024 9:30 AM EDT Infusion Hematology Oncology at [address] [phone] 03/02/2024 11:00 AM EDT Office Visit Hematology/Oncology at [address] [phone] Shon Schneider MD [facility] [place] [address] HEMATOLOGY [place] [address] 03/02/2024 12:30 PM EDT Infusion Hematology Oncology at [address] [phone] 03/09/2024 10:00 AM EDT Office Visit Hematology/Oncology at [address] [phone] Shon Schneider MD [facility] [place] [address] [address] HEMATOLOGY [place] [address] 03/09/2024 10:30 AM EDT Infusion Hematology Oncology at [address] [phone] documented as of this encounter Procedures Procedure Name Priority Date/Time Associated Diagnosis Comments SURGICAL PATHOLOGY SCAN 04/28/2017 12:00 AM EST FILM LIBRARY STORAGE ONLY NM PET/CT Routine 04/18/2017 12:00 AM EST Pain documented in this encounter Results * SCAN DOC: SURGICAL PATHOLOGY (04/28/2017 12:00 AM EST) Narrative 04/28/2017 12:00 AM EST Ordered by an unspecified provider. Scanning Provider MEDIA MGR SCAN EXT O RDR/RSLT * Film Library- Storage Only NM Pet / CT (04/18/2017 12:00 AM EST) Narrative MICHAEL PENDLETON - 05/17/2017 3:52 AM EST This exam is for storage only and is auto-finalizing. Jerrod White MD [facility] FILM LIBRARY ORD ERABLES [place], [place] documented in this encounter Visit Diagnoses Diagnosis Pain Generalized pain Thymic carcinoma Malignant neoplasm of thymus documented in this encounter
--- OUTSIDE RECORDS SUMMARY | 2024-02-24 01:27 | XMS_ITS | Encounter Summary ---
Author Organization [facility] Address [address] [place] [address] Care Team Providers Care Scrapper Name Role Phone Jerzy Vidal MD Primary Care Provider [phone] Encounter Details Date Type Department Care Team (Late st Contact Info) Description 01/19/2022 Lab Requisition [facility] Pathology & Laboratory Medicine - [facility] [address] [place] [address] Stanislaw Dangelo MD [address] [place] [phone] Encounter for other general examination Social History [...] Name Priority Date/Time Associated Diagnosis Comments NON CONE BAKER MACHINE/FNA CYTOLOGY Today 01/19/2022 14:15 EDT documented in this encounter Results * NON CONE BAKER MACHINE/FNA CYTOLOGY (01/19/2022 14:15 EDT) Note to Patient The following pathology results have been interpreted by your pathologist and may be available to you before your health provider has had the opportunity to review them. Please allow time for your provider to receive these results and explore management options, if applicable. 01/21/2022 10:26 [facility] Final Diagnosis PLEURAL FLUID, LEFT, CYTOLOGIC EVALUATION: - No malignant cells identified - Reactive mesothelial cells present 01/21/2022 10:26 [facility] Attestation By the signature below, the attending physician certifies that they have personally conducted a gross and/or microscopic examination of the described specimens and rendered or confirmed the above diagnosis. 01/21/2022 10:26 [facility] at 1026 Clinical History Left pleural fluid 01/21/2022 10:26 [facility] Gross Description A. 900cc's of cloudy yellow fluid were received and processed by selective cellular enhancement technique. 01/21/2022 10:26 [facility] Performing Lab [facility] 01/21/2022 10:26 [facility] Scanned Images 01/21/2022 10:26 [facility] ZZUNK PLEURAL FLUID / Unknown 01/19/2022 14:15 EDT 01/20/2022 6:42 EDT Stanislaw Dangelo MD PATHOLOGY ORDERABLES [facility] [address] [place] [address] documented in this encounter Visit Diagnoses Diagnosis Encounter for other general examination documented in this encounter Care Teams Scrapper Relationship Specialty Start Date End Date Jerzy Vidal MD [address] [place] [phone] PCP - General 09/19/18 documented as of this encounter
--- OUTSIDE RECORDS SUMMARY | 2024-02-24 01:27 | XMS_ITS | Encounter Summary ---
Author Organization [facility] [address] Care Team Providers Care Civil Engineer'S Aide Name Role Phone Gloria Red MD Primary Care Provider [phone] Reason for Visit * Reason Comments Chemotherapy Cycle 2 day 1 * Treatment/Therapy Plan Authorization (Routine) - Closed Specialty Diagnoses / Procedures Referred By Franklyn del rio Referred To Contact Hematology and Oncology Diagnoses Thymic carcinoma Procedures TC PALONOSETRON HCL, 25MCG, INJECTION (ALOXI) TC FOSAPREPITANT, 1MG, INJECTION (EMEND) TC CARBOPLATIN, 50MG, INJECTION (PARAPLATIN) TC PACLITAXEL, 1MG, INJ TC PEGFILGRASTIM, 6MG, INJECTION Jerrod White MD [address] [place] [address] [facility] Hem Onc Office [address] [place] [phone] Referral ID Status Reason Start Date Expiration Date Visits Re quested Visits Authorized [id number] Closed 05/27/2017 08/26/2018 18 18 Encounter Details Date Type Department Care Team (Late st Contact Info) Description 06/20/2017 9:30 AM EST Infusion Hematology Oncology at [address] [phone] Thymic carcinoma Social History Tobacco Use Types Packs/Day Years Used Date Smoking Tobacco: Never Smokeless Tobacco: Never Sex and Gender Information Value Date Recorded Sex Assigned at Not on file Gender Identity Not on file Sexual Orientation Not on file documented as of this encounter Progress Notes * Phuong Alcocer RN - 06/20/2017 9:30 AM EST INFUSION THERAPY ADMINISTRATION NOTES DIAGNOSIS: Thymic carcinoma CYCLE # 2, Day 1 REASON FOR VISIT: Carbo/Taxol infusion & Neulasta SUBJECTIVE Monica offers no complaints. OBJECTIVE LAB DATA: WNL, reviewed by Dr. White IV ACCESS: Mediport Pre administration: Chemotherapy orders independently verified for drug name, route, and dosage per patient's height, weight and BSA by PHUONG ALCOCER RN & Josh Paul [facility]. REACTIONS (DESCRIPTION, TIME, INTERVENTION AND EFFECTIVENESS) none ASSESSMENT Monica was awake, alert and tolerated treatment well. PLAN Return to clinic as scheduled.. Return to clinic per routine. documented in this encounter Plan of Treatment Upcoming Encounters Date Type Department Care Team (Late st Contact Info) Description 02/24/2024 9:00 AM EDT Office Visit Hematology/Oncology at [address] [phone] Shon Schneider MD [facility] [place] [address] Ciara Pitts [address] [place] [address] 02/24/2024 9:30 AM EDT Infusion Hematology Oncology at [address] [phone] 03/02/2024 11:00 AM EDT Office Visit Hematology/Oncology at [address] [phone] Shon Schneider MD [facility] [place] [address] Ciara Pitts [address] HEMATOLOGY AND ONCOLOGY [place], [place] [address] 03/02/2024 12:30 PM EDT Infusion Hematology Oncology at [address] [phone] 03/09/2024 10:00 AM EDT Office Visit Hematology/Oncology at [address] [phone] Shon Schneider MD [facility] [place] [address] Ciara Pitts [address] HEMATOLOGY AND ONCOLOGY [place], [place] [phone] 03/09/2024 10:30 AM EDT Infusion Hematology Oncology at [address] [phone] documented as of this encounter Visit Diagnoses [...] = 6), Intravenous, ONCE, 1 dose, On Tue06/20/17 at 1045, Administer over 30 Minutes, Hold Parameters: CARBOplatin, Call provider for serum creatinine less than (mg/dL): .2, Call provider for serum creatinine greater than (mg/dL): 2, External serum creatinine results used to calculate dose? Yes, Enter serum creatinine value (mg/dL): .5, Enter serum creatinine result date: 05/26/2017 New Bag 06/20/2017 2:48 PM EST 900 mg 680 mL/hr dexamethasone (DECADRON) injection 10 mg 10 mg, Intravenous, ONCE, 1 dose, On Tue06/20/17 at 0945, Administer 30 minutes prior to PACLitaxel Given 06/20/2017 9:45 AM EST 10 mg diphenhydrAMINE (BENADRYL) injection 25 mg 25 mg, Intravenous, ONCE, 1 dose, On Tue06/20/17 at 0945, Administer 30 minutes prior to PACLitaxel, Routine Given 06/20/2017 10:06 AM EST 25 mg famotidine (PEPCID) injection 20 mg 20 mg, Intravenous, ONCE, 1 dose, On Tue06/20/17 at 0945, Administer 30 minutes prior to PACLitaxel Given 06/20/2017 9:53 AM EST 20 mg fosaprepitant (EMEND) 150 mg in sodium chloride 0.9% 155 mL infusion 150 mg, Intravenous, at 310 mL/hr, Administer over 30 Minutes, ONCE, 1 dose, On Tue06/20/17 at 0945, Routine New Bag 06/20/2017 10:45 AM EST 150 mg 310 mL/hr PACLitaxel (TAXOL) 480 mg in sodium chloride 0.9% Non-PVC 580 mL chemo infusion 480 mg (200 mg/m2/dose ? 2.4 m2 Treatment Plan BSA from Recorded weight), Intravenous, ONCE, 1 dose, On Tue06/20/17 at 1045, Administer over 3 Hours, Warning Vesicant/Irritant Medication New Bag 06/20/2017 11:25 AM EST 480 mg 193.3 mL/hr palonosetron (ALOXI) injection 0.25 mg 0.25 mg, Intravenous, ONCE, 1 dose, On Tue06/20/17 at 0945, Administer over 30 seconds. Administer prior to chemotherapy, Routine Given 06/20/2017 10:00 AM EST 0.25 mg pegfilgrastim (NEULASTA) injection 6 mg 6 mg, Subcutaneous, ONCE, 1 dose, On Tue06/20/17 at 0945, Bring to room temperature 15-30 mins before administration. , Routine Given 06/20/2017 2:49 PM EST 6 mg documented in this encounter Care Teams Civil Engineer'S Aide Relationship Specialty Start Date End Date Gloria Red MD [address] [place] [address] [place] [phone] PCP - General Family Medicine 05/26/17 12/03/18 documented as of this encounter
--- OUTSIDE RECORDS SUMMARY | 2024-02-24 01:27 | XMS_ITS | Encounter Summary ---
Author Organization [facility] [place] [address] Care Team Providers Care Extrusion Engineer Name Role Phone Gloria Red MD Primary Care Provider Reason for Visit * Reason Comments Cancer Encounter Details Date Type Department Care Team (Late st Contact Info) Description 06/20/2017 9:00 AM EST Office Visit Hematology/Oncology at [address] [phone] Jerrod White MD [address] [place] [address] Thymic carcinoma Social History Tobacco Use Types Packs/Day Years Used Date Smoking Tobacco: Never Smokeless Tobacco: Never Sex and Gender Information Value Date Recorded Sex Assigned at Not on file Gender Identity Not on file Sexual Orientation Not on file documented as of this encounter Last Filed Vital Signs Vital Sign Reading Time Taken Comments Blood Pressure 119/77 06/20/2017 8:53 AM EST Pulse 97 06/20/2017 8:53 AM EST Temperature 36.8 ??C (98.2 ??F) 06/20/2017 8:53 AM ES T Respiratory Rate 18 06/20/2017 8:53 AM EST Oxygen Saturation 99% 06/20/2017 8:53 AM EST Inhaled Oxygen Concentration - - Weight 117.5 kg (259 lb) 06/20/2017 8:53 AM EST Height 176.5 cm (5' 9.49) 06/20/2017 8:53 AM ES T copied Body Mass Index 37.71 06/20/2017 8:53 AM EST documented in this encounter Progress Notes * Jerrod White MD - 06/20/2017 9:00 AM EST Diagnosis: 1) 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 She had a fair amount of constipation with the first cycle, but no significant nausea or vomiting. The other issue was fairly significant aches and pains with her receiving both a high dose taxane and Neulasta. She tried Claritin but was still quite achy for 48 to 72 hours. She did request a narcotic today, but we discussed the fact that it could exacerbate nausea and certainly would make her constipation worse. We talked about using Tylenol and ibuprofen along with Claritin during the 48 to 72 hours that she has symptoms. After discussions today, she said she was fine with that. I did offer her some Ativan if she was very uncomfortable and just needed to sleep. She would rather not do that. Symptom-swain, she is really not having any problems. Her hair has started to come out, and she has clipped off most of it. She is not having any neuropathy symptoms. The fatigue is mild and really not an issue now. Review of systems is otherwise negative. Of note, she is really quite asymptomatic with her tumor, so there is not really any improvement to be measured there. Past Medical History: Diagnosis Date ??? Atrial [...] upon request. Final classification is deferred to resection.?Spray Dyer slides of this case were reviewed at the intradepartmental consultation conference. Immunoperoxidase stains were performed on this case to further characterize the lesion. ANTIBODY(CLONE)(BLOCK):RESULT Ckit (CD117) (EP10, Leica) (2): Positive CD5 (Rabbit Monoclonal, clone SP19, [employer]) (2): Positive PAX-8 (MRQ-50, [place]) (2): Positive P40 (BC28, [place]) (2): Positive Keratin AE1-AE3 (AE1-AE3, [employer]) (2): Positive Chromogranin (LK2H10, [place]) (2): Positive Synaptophysin (27G12, Leica) (2): Positive MIB-1 (DAKO) (MIB-1, Dako) (2): 5-15% nuclei positive CK7 (RN7, Leica) (2): Negative CK20 (Ks20.8, Leica) (2): Negative TTF-1 (8G7G3/1, [place]) (2): Negative GATA3 (L50-823, [place]) (2): Negative CD34 (QBEnd/10, Leica) (2): Negative CASE: [id number] Second Opinion PATIENT: BRAYAN PIERRE [facility] Department of Pathology [address] [place] [address], [place] [address] [place] License No.: [id number] Patient Care Manager: Dr. Juan Jose Mcleod Physician: EDVIN SYED M.D. Resident: Natali Flores?Kaylah Calle, Ph.D. Pathologist:? Bhargavi Gil M.D. PATHOLOGIC DIAGNOSIS: CONSULT SLIDES FROM [facility]; [place], [place]: A. MEDIASTINUM, MASS, BIOPSY ([id number]; 03/22/2017): ? 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 ?Immunohistochemistry performed at the outside institution and reviewed ?at [facility] demonstrates the following staining profile in lesional cells: ? Positive - AE1/AE3, p40, PAX8, CD117, CD5(multifocal), ?CK7(scattered cells), synaptophysin, chromogranin ? Negative - CK20, TTF-1, GATA3, CD34 ? The immunohistochemical profile supports the above diagnosis. ? Ki67 (MIB-1) proliferation index performed at the referring ?institution and reviewed at [facility] is [...] chain myosin and P63, confirming their benign nature.?Spray Dyer slides of this case were reviewed at the intradepartmental consultation conference.?(Dr. Bond)/[facility] PET CT EYE TO THIGH?04/18/2017 2:03 PM Signs and Symptoms/Comments:? C7A.8-Other malignant neuroendocrine tumors (HCC)-ICD-10 F06-Icevfbipz neoplasm of thymus (HCC)-ICD-10; thymic squamous cell ca, thymic neuroendocrine tumor, vertebral body lesions concerning for mets . Comparison: CT of the abdomen and pelvis from 03/23/2017, CT of the chest from 03/18/2017, ultrasound guided breast biopsy from 03/25/2017 Technique: Approximately 91 minutes following the IV injection of 15 mCi of O25-zvwivzetempratyidi, 3D TOF PET imaging was obtained from the head to the upper thighs with attenuation correction using a [employer] Big [place]ore dedicated closed ring PET / [...] (NEULASTA) SubQ 6 mg Review of her blood counts today show a white count of 7.62 with an absolute neutrophil count of 5.03, hemoglobin 11.5, hematocrit 35.5, platelet count is 314. CMP shows normal electrolytes, a creatinine of 0.7, calcium of 9.7, ALP of 59, albumin of 3.1. ASSESSMENT/PLAN: Brayan is absolutely fine today for her second cycle of treatment. Considering the problems she has had with aches and pains, I would really like to try to avoid narcotics, as it will certainly exacerbate both the probability of nausea with chemotherapy and the additional problem of constipation, which was a bit difficult to get under control. She ended up using glycerin suppositories. We will go ahead and try the alternating Tylenol and ibuprofen, along with Claritin. As noted, she could get some antinausea and muscle relaxant effects from lorazepam, but wants to try and hold off on that. Will go ahead today with treatment without any change. Will see her back in 3 weeks for her next cycle of treatment, with a CBC and CMP from her port prior to that. She will call if there are any issues or problems in the interim. documented in this encounter Plan of Treatment Upcoming Encounters Date Type Department Care Team (Late st Contact Info) Description 02/24/2024 9:00 AM EDT Office Visit Hematology/Oncology at [address] [phone] Shon Schneider MD [facility] [place] [address] Ciara Pitts APRN [address] [place] [address] HEMATOLOGY AND ONCOLOGY [place], [place] [phone] 02/24/2024 9:30 AM EDT Infusion Hematology Oncology at [address] [phone] 03/02/2024 11:00 AM EDT Office Visit Hematology/Oncology at [address] [phone] Shon Schneider MD [facility] [place] [address] [place] [address] 03/02/2024 12:30 PM EDT Infusion Hematology Oncology at [address] [phone] 03/09/2024 10:00 AM EDT Office Visit Hematology/Oncology at [address] [phone] Shon Schneider MD [facility] [place] [address] [address] [place] [address] 03/09/2024 10:30 AM EDT Infusion Hematology Oncology at [address] [phone] documented as of this encounter Visit Diagnoses Diagnosis 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
--- OUTSIDE RECORDS SUMMARY | 2024-02-24 01:27 | XMS_ITS | Encounter Summary ---
Author Organization [facility] Address [facility] [place] [address] Care Team Providers Care Coke Worker Name Role Phone Gloria Red MD Primary Care Provider [phone] Encounter Details Date Type Department Care Team (Late st Contact Info) Description 06/01/2017 External Results [place] [phone] Provider, Scanning Social History Tobacco Use Types [...] AM EDT Office Visit Hematology/Oncology at [address] [phone] Shon Schneider MD [facility] [place] [address] Ciara Pitts APRN [address] [place] [address] DR HEMATOLOGY AND ONCOLOGY [place], [place] [phone] 02/24/2024 9:30 AM EDT Infusion Hematology Oncology at [address] [phone] 03/02/2024 11:00 AM EDT Office Visit Hematology/Oncology at [address] [phone] Shon Schneider MD [facility] [place] [address] [address] HEMATOLOGY AND ONCOLOGY [place], [place] [phone] 03/02/2024 12:30 PM EDT Infusion Hematology Oncology at [address] [phone] 03/09/2024 10:00 AM EDT Office Visit Hematology/Oncology at [address] [phone] Shon Schneider MD [facility] [place] [address] [address] HEMATOLOGY AND ONCOLOGY [place], [place] [phone] 03/09/2024 10:30 AM EDT Infusion Hematology Oncology at [address] [phone] documented as of this encounter Procedures Procedure Name Priority Date/Time Associated Diagnosis Comments SURGICAL PATHOLOGY SCAN Routine 06/01/2017 CYTOLOGY SCAN Routine 06/01/2017 documented in this encounter Results * Scan Doc: Cytology (06/01/2017) Jerrod White MD MEDIA MGR SCAN EXT O RDR/RSLT * Scan Doc: Surgical Pathology (06/01/2017) Jerrod White MD MEDIA MGR SCAN EXT O RDR/RSLT documented in this encounter Visit Diagnoses Not on filedocumented in this encounter Care Teams Coke Worker Relationship Specialty Start Date End Date Gloria Red MD [address] [place] [address] [place] [phone] PCP - General Family Medicine 05/26/17 12/03/18 documented as of this encounter
--- OUTSIDE RECORDS SUMMARY | 2024-02-24 01:27 | XMS_ITS | Encounter Summary ---
Author Organization [facility] Address [address] [place] [address] Care Team Providers Care Miter Grinder Operator Name Role Phone Gloria Red MD Primary Care Provid er Reason for Visit * Reason Onset Date Comments Returning Call 04/12/2018 Encounter Details Date Type Department Care Team ([facility] Contact Info) Description 04/12/2018 Telephone [facility] Hematology & Oncology - [facility] [address] [place], [place] [phone] Gayla Tomas MD [address] [facility] [address] [place] [address] Returning Call Social History Tobacco Use Types Packs/Day Years [...] Miscellaneous Notes * Telephone Encounter - Kobe Deng, RN - 04/12/2018 1325 EDT Called Pt and left message. She faxed paperwork for Disability but has not seen Dr Tomas since 05/12/17, left her that message. Kobe Deng, RN * Telephone Encounter - Janice Coburn V. - 04/12/2018 1200 EDT Patient states that she is returning a call from ..18 regarding paperwork. Has no name and nothing seen in [facility] documented in this encounter Plan of Treatment Not on file documented as of this encounter Visit Diagnoses Not on filedocumented in this encounter Care Teams Miter Grinder Operator Relationship Specialty Start Date End Date Gloria Red MD [address] [place] [address] [place] [address] PCP - General 04/05/17 09/18/18 documented as of this encounter
--- OUTSIDE RECORDS SUMMARY | 2024-02-24 01:27 | XMS_ITS | Encounter Summary ---
Author Organization [facility] Address [address] [place] [address] Care Team Providers Care Rodent Exterminator Name Role Phone Jerzy Vidal MD Primary Care Provider [phone] Encounter Details Date Type Department Care Team (Latest Contact Info) Description 09/26/2018 9:48 EDT - 09/26/2018 23:59 EDT Hospital Encounter [facility] [address] [place] [address] Shon Schneider MD [address] [place] [address] Discharge Disposition: Auto Discharge Social History [...] Diagnoses Diagnosis C37 Malignant neoplasm of thymus-C37[ICD-10-CM] documented in this encounter Medications at Time [...] on filedocumented in this encounter Care Teams Rodent Exterminator Relationship Specialty Start Date End Date Jerzy Vidal MD [address] [place] [phone] PCP - General 09/19/18 documented as of this encounter
--- OUTSIDE RECORDS SUMMARY | 2024-02-24 01:27 | XMS_ITS | Encounter Summary ---
Author Organization [facility] Address [address] [place] [address] Care Team Providers Care Rubber Goods Inspector Name Role Phone Jerzy Vidal MD Primary Care Provider [phone] Encounter Details Date Type Department Care Team (Late st Contact Info) Description 08/19/2020 Lab Requisition [facility] Pathology & Laboratory Medicine - [facility] [address] [place] [address] Outr Resulting Lab, Provider Social History Tobacco [...] Procedure Name Priority Date/Time Associated Diagnosis Comments TOTAL PROTEIN, FLUID Routine 08/19/2020 9:30 EST documented in this encounter Results * TOTAL PROTEIN, FLUID (08/19/2020 9:30 EST) Total Protein, Fluid 3.0 See Note g/dL 08/19/2020 22:37 EST [facility] Comment: Reference range unavailable. Clinical correlation required. This Fluid Total Protein assay was developed and its performance characteristics determined by [facility]. ??It has not been cleared or approved by the US Food and Drug Administration. Fluid PLEURAL FLUID / Unknown 08/19/2020 9:30 EST 08/19/2020 21:52 EST Narrative [facility] - 08/19/2020 22:37 EST Pleural Fluid Provider Outr Resulting Lab GEN LAB UNIT COLLECT ORDERABLES [facility] [address] [place] [address] documented in this encounter Visit Diagnoses Not on filedocumented in this encounter Care Teams Rubber Goods Inspector Relationship Specialty Start Date End Date Jerzy Vidal MD [address] [place] [phone] PCP - General 09/19/18 documented as of this encounter
--- OUTSIDE RECORDS SUMMARY | 2024-02-24 01:27 | XMS_ITS | Encounter Summary ---
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 Gloria Red MD [address] [place] [phone] [facility] Onc Office [address] [place] [phone] Referral ID Status Reason Start Date Expiration Date Visits Re quested Visits Authorized [id number] Closed 05/11/2017 05/11/2018 1 1 Encounter Details Date Type Department Care Team (Late st Contact Info) Description 05/26/2017 2:00 PM EST Office Visit Hematology/Oncology at [address] [phone] Jerrod White MD [address] [place] [phone] Thymic carcinoma Social History Tobacco Use Types Packs/Day Years Used Date Smoking Tobacco: Never Smokeless Tobacco: Never Sex and Gender Information Value Date Recorded Sex Assigned at Not on file Gender Identity Not on file Sexual Orientation Not on file documented as of this encounter Last Filed Vital Signs Vital Sign Reading Time Taken Comments Blood Pressure 136/62 05/26/2017 1:53 PM EST Pulse 84 05/26/2017 1:53 PM EST Temperature 36.6 ??C (97.9 ??F) 05/26/2017 1:53 PM ES T Respiratory Rate 18 05/26/2017 1:53 PM EST Oxygen Saturation 97% 05/26/2017 1:53 PM EST Inhaled Oxygen Concentration - - Weight 117.5 kg (259 lb) 05/26/2017 1:53 PM EST Height 176.5 cm (5' 9.49) 05/26/2017 1:53 PM ES T copied Body Mass Index 37.71 05/26/2017 1:53 PM EST documented in this encounter Progress Notes * Jerrod White MD - 05/26/2017 2:00 PM EST Diagnosis: 1) 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 She presented to the Emergency Room with increasing shortness of breath and has a history of atrial fibrillation on apixaban. In view of that, a CT was done with a pulmonary embolus protocol and surprisingly she was found to have a large anterior mediastinal mass measuring 8.8 x 8.8 x 4.8 cm and a moderately large sized left pleural effusion with compression atelectasis. There was no evidence for pulmonary embolus. She was transferred to [facility] for further evaluation and workup and had some initial problems with hypoxemia that landed her in the ICU. She had 1.6 liters of left-sided pleural fluid tapped and cytology was negative on that. She slowly improved and the mediastinal mass was biopsied in mid-March and it showed a poorly differentiated carcinoma. Additionally, she was noted to have a left breast mass. That was biopsied and found to be benign. Final pathology on this poorly differentiated tumor suggested a thymic carcinoma, perhaps with neuroendocrine features and some non-keratinizing squamous characteristics. The patient was discharged and did go to get a second opinion with Dr. Edvin Syed in [place]. They reviewed the pathology and concurred they [...] radiation therapy and systemic treatment was recommended. She comes in today with her daughter and , having been seen by 2 previous oncologists. She has a very good understanding of things at this point and has been reading the NCCN guidelines as far as recommended treatments. Dr. Syed also touched on the possibility of immunotherapy and PD-L1 testing was done on the tumor which was quite positive at 75%. There is some reluctance to use immunotherapy in patients with thymomas because of autoimmune problems seen with those tumors but that is less certain that would be a problem with thymic carcinoma. Additionally she had Foundation 1 testing but there was not any molecular targeted options reported. The patient did get a port placed. One of the regimens that was discussed with Adriamycin, Cytoxan, cisplatin, and vincristine. Another was carboplatin with an area under the curve of 6 and taxol 200 mg/m2. As noted, the patient had been reading up on chemotherapy and they decided they did not want to consider an Adriamycin-containing regimen. I did spend a little time talking to her about the risks of Adriamycin, but really the risks of cardiomyopathy are quite small. After discussing the situation with her and her family, they are most comfortable with pursuing first-line chemotherapy with carboplatin and taxol. We did chemotherapy teaching today, went over risks and side effects of the chemotherapy involved, and made arrangements to start the chemotherapy this coming Tuesday. In talking to the patient today, she notes she is really symptom-free and feels well at this time. She is not having breathing difficulties, not having fevers, chills, or sweats. No weakness at all. No other symptoms. Past Medical History: Diagnosis Date ??? Atrial fibrillation ??? HTN (hypertension) ??? Obesity ??? Thymic cancer 04/2017 ??? Ventral hernia Allergies Allergen Reactions ??? [...] Not on file Social History Narrative ??? No narrative on file Review of Systems Constitutional: Negative for fever, [...] upon request. Final classification is deferred to resection.?Small Business Banking Officer slides of this case were reviewed at the intradepartmental consultation conference. Immunoperoxidase stains were performed on this case to further characterize the lesion. ANTIBODY(CLONE)(BLOCK):RESULT Ckit (CD117) (EP10, Leica) (2): Positive CD5 (Rabbit Monoclonal, clone SP19, [employer]) (2): Positive PAX-8 (MRQ-50, [place]) (2): Positive P40 (BC28, [place]) (2): Positive Keratin AE1-AE3 (AE1-AE3, [employer]) (2): Positive Chromogranin (LK2H10, [place]) (2): Positive Synaptophysin (27G12, Leica) (2): Positive MIB-1 (DAKO) (MIB-1, Dako) (2): 5-15% nuclei positive CK7 (RN7, Leica) (2): Negative CK20 (Ks20.8, Leica) (2): Negative TTF-1 (8G7G3/1, [place]) (2): Negative GATA3 (L50-823, [place]) (2): Negative CD34 (QBEnd/10, Leica) (2): Negative CASE: [id number] Second Opinion PATIENT: MONICA JARAMILLO [facility] Department of Pathology [address] [place], [place] [address]IA License No.: [id number] Supervisor Assembly Department: Dr. Juan Jose Mcleod Physician: EDVIN SYED M.D. Resident: Natali Flores?Kaylah Calle, Ph.D. Pathologist:? Bhargavi Gil M.D. PATHOLOGIC DIAGNOSIS: CONSULT SLIDES FROM [facility]; [place], [place]: A. MEDIASTINUM, MASS, BIOPSY ([id number]; 03/22/2017): ? 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 ?Immunohistochemistry performed at the outside institution and reviewed ?at [facility] demonstrates the following staining profile in lesional cells: ? Positive - AE1/AE3, p40, PAX8, CD117, CD5(multifocal), ?CK7(scattered cells), synaptophysin, chromogranin ? Negative - CK20, TTF-1, GATA3, CD34 ? The immunohistochemical profile supports the above diagnosis. ? Ki67 (MIB-1) proliferation index performed at the referring ?institution and reviewed at [facility] is focally up to ~30%. NOTE: [...] chain myosin and P63, confirming their benign nature.?Small Business Banking Officer slides of this case were reviewed at the intradepartmental consultation conference.?(Dr. Bond)/[facility] [place] PET CT EYE TO THIGH?04/18/2017 2:03 PM Signs and Symptoms/Comments:? C7A.8-Other malignant neuroendocrine tumors (HCC)-ICD-10 D16-Nhxgewfcy neoplasm of thymus (HCC)-ICD-10; thymic squamous cell ca, thymic neuroendocrine tumor, vertebral body lesions concerning for mets . Comparison: CT of the abdomen and pelvis from 03/23/2017, CT of the chest from 03/18/2017, ultrasound guided breast biopsy from 03/25/2017 Technique: Approximately 91 minutes following the IV injection of 15 mCi of O64-icsffrfhynpegwrrej, 3D TOF PET imaging was obtained from the head to the upper thighs with attenuation correction using a [employer] [place] dedicated closed ring PET / [...] that to consideration for resistant disease only. * Ute Chacon RN - 05/26/2017 2:00 PM EST MEDICAL ONCOLOGY INITIAL NURSING ASSESSMENT ADVANCE DIRECTIVES: In [facility] [ ] Has documents [ ] Will bring in [ ] IF NO: Advance Directive pamphlet provided : Referral to Care Management : SW to see PRESENTING SYSTEMS and PATHOLOGY: as per Dr. White REVIEW OF SYSTEMS: as per Dr. White Prior Radiotherapy: no[ x ] Yes[ ]Site Date Facility Prior Chemotherapy: no[ x ] Yes[ ] Drug: Oncologist- LastTreatment: NO: YES: Claustrophobia or requires sedation for MRIs x Allergy to CT or MRI contrast agent or iodine or shellfish x Diabetic and on metformin x Metal in body, implanted device, worked with metal, body piercings,braces x Dentures or hearing device x Pacemaker x Difficulty breathing while lying flat x Kidney problems/creatinine x Balance difficulty: [ x ]no [ ]yes At risk for fall: [ x ] no [ ] yes If yes, actions implemented to prevent fall. Patient/family instructed to avoid independent ambulation. Use wheelchair and ask for assistance of staff while in the clinic. ADL [ x ] no limits [ ] needs dressing assistance [ ] needs meal assistance Assistive device:[ ]none [ ]cane [ ]walker [ ]wheelchair [ ]other: explain PAIN ASSESSMENT: [ x ] out of 10 Location: Description: [ ] Dull [ ] Sharp [ ] Burning [ ] Throbbing [ ] Radiating [ ] Continuous [ ]Intermittent Aggravating Factors: [ ] Movement [ ] Position [ ]Immobility [ ]Other Alleviating Factors: [ ]Medication [ ] Positioning [ ] Other Current Pain Management Plan: [ x ]Satisfied [ ] Not satisfied SOCIAL ASSESSMENT: See [facility] social assessment information entered. Support Systems: transportation plan: [x ]private vehicle [ ] RCT needs Social Work referral [ ] Unknown at this time needs Social Work referral Barriers to treatment: none Referrals/Interventions: LEARNING STYLE: Visual and verbal, wants written material and verbal discussion. TEACHING: _x_ NCI ???Chemotherapy and You?? and folder given _x_ Specific chemotherapy literature provided and reviewed with patient. Carboplatin and Paclitaxel. In addition, Neulasta documented in this encounter Plan of Treatment Upcoming Encounters Date Type Department Care Team (Late st Contact Info) Description 02/24/2024 9:00 AM EDT Office Visit Hematology/Oncology at [address] [phone] Shon Schneider MD [facility] [place] [address] HEMATOLOGY AND ONCOLOGY [place], [place] [address] 02/24/2024 9:30 AM EDT Infusion Hematology Oncology at [address] [phone] 03/02/2024 11:00 AM EDT Office Visit Hematology/Oncology at [address] [phone] Shon Schneider MD [facility] [place] [address] [address] HEMATOLOGY AND ONCOLOGY [place], [place] [address] 03/02/2024 12:30 PM EDT Infusion Hematology Oncology at [address] [phone] 03/09/2024 10:00 AM EDT Office Visit Hematology/Oncology at [address] [phone] Shon Schneider MD [facility] [place] [address] Ciara Pitts APRN [address] [place] [address] [place] [address] 03/09/2024 10:30 AM EDT Infusion Hematology Oncology at [address] [phone] documented as of this encounter Procedures Procedure Name Priority Date/Time Associated Diagnosis Comments LAB SCAN 05/26/2017 12:00 AM EST documented in this encounter Results * SCAN DOC: LAB (05/26/2017 12:00 AM EST) Narrative 05/26/2017 12:00 AM EST Ordered by an unspecified provider. 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 documented in this encounter Care Teams Monkey Breeder Relationship Specialty Start Date End Date Gloria Red MD [address] [place] [address] [place] [phone] PCP - General Family Medicine 05/26/17 12/03/18 documented as of this encounter
--- OUTSIDE RECORDS SUMMARY | 2024-02-24 01:27 | XMS_ITS | Encounter Summary ---
Author Organization [facility] Address [address] [place] [address] Care Team Providers Care Gas Or Petroleum Operator Name Role Phone Gloria Red MD Primary Care Provid er Encounter Details Date Type Department Care Team (Latest Contact Info) Description 12/28/2017 14:16 EDT - 12/28/2017 23:59 EDT Hospital Encounter [facility] [address] [place] [address] Jerrod White MD [address] [place] [phone] Discharge Disposition: Auto Discharge Social History Tobacco [...] as of this encounter Discharge Diagnoses Diagnosis J98.59 Other diseases of mediastinum, not elsewhere classified-J98.59[ICD-10-CM] R59.0 Localized enlarged lymph nodes-R59.0[ICD-10-CM] J94.8 Other specified pleural conditions-J94.8[ICD-10-CM] documented in this encounter Medications at Time [...] on filedocumented in this encounter Care Teams Gas Or Petroleum Operator Relationship Specialty Start Date End Date Gloria Red MD [address] [place] [address] [place] [address] PCP - General 04/05/17 09/18/18 documented as of this encounter
--- OUTSIDE RECORDS SUMMARY | 2024-02-24 01:27 | XMS_ITS | Encounter Summary ---
Author Organization [facility] Address [address] [place] [address] Care Team Providers Care Casting Wheel Operator Name Role Phone Jerzy Vidal MD Primary Care Provider [phone] Encounter Details Date Type Department Care Team (Late st Contact Info) Description 04/12/2022 Lab Requisition [facility] Pathology & Laboratory Medicine - [address] [address] Juan Alberto Connolly MD [address] [place] [address] Encounter for other general examination Social History [...] Name Priority Date/Time Associated Diagnosis Comments NON RESEARCH ENVIRONMENTAL ENGINEER/FNA CYTOLOGY Today 04/12/2022 13:26 EDT documented in this encounter Results * NON RESEARCH ENVIRONMENTAL ENGINEER/FNA CYTOLOGY (04/12/2022 13:26 EDT) Note to Patient The following pathology results have been interpreted by your pathologist and may be available to you before your health provider has had the opportunity to review them. Please allow time for your provider to receive these results and explore management options, if applicable. 04/13/2022 12:18 [facility] Final Diagnosis A. PLEURAL FLUID, CYTOLOGIC EVALUATION: - Negative for malignant cells. - Reactive mesothelial cells and histiocytes in a background of blood and mixed inflammation. 04/13/2022 12:18 [facility] Attestation By the signature below, the attending physician certifies that they have personally conducted a gross and/or microscopic examination of the described specimens and rendered or confirmed the above diagnosis. 04/13/2022 12:18 [facility] at 1217 Clinical History Bilateral pleural effusions 04/13/2022 12:18 [facility] Gross Description A. 850cc's of cloudy red fluid were received and processed by selective cellular enhancement technique. 04/13/2022 12:18 [facility] Performing Lab [facility] 04/13/2022 12:18 [facility] Scanned Images 04/13/2022 12:18 [facility] ZZUNK PLEURAL FLUID / Unknown 04/12/2022 13:26 EDT 04/13/2022 6:19 EDT Juan Alberto Connolly MD PATHOLOGY ORDERABLE S [facility] [address] [place] [address] documented in this encounter Visit Diagnoses Diagnosis Encounter for other general examination documented in this encounter Care Teams Casting Wheel Operator Relationship Specialty Start Date End Date Jerzy Vidal MD [address] [place] [phone] PCP - General 09/19/18 documented as of this encounter"
--- OUTSIDE RECORDS SUMMARY | 2024-02-24 01:27 | XMS_ITS | Encounter Summary ---
Author Organization [facility] Address [address] [place] [address] Care Team Providers Care Director Loss Prevention Name Role Phone Jerzy Vidal MD Primary Care Provider [phone] Encounter Details Date Type Department Care Team (Late st Contact Info) Description 10/22/2022 Lab Requisition [facility] Pathology & Laboratory Medicine - [facility] [address] [place] [address] Outr Resulting Lab, Provider Social History Tobacco [...] Priority Date/Time Associated Diagnosis Comments HAPTOGLOBIN Routine 10/22/2022 10:57 EDT documented in this encounter Results * (ABNORMAL) HAPTOGLOBIN (10/22/2022 10:57 EDT) Haptoglobin 252(H) 32 - 197 mg/dL 10/25/2022 9:09 EDT [facility] Blood VENOUS BLOOD / Unknown 10/22/2022 10:57 EDT 10/22/2022 22:09 EDT Provider Outr Resulting Lab CHEMISTRY & BLOOD GAS ORDERABLES [facility] [address] [place] [address] documented in this encounter Visit Diagnoses Not on filedocumented in this encounter Care Teams Director Loss Prevention Relationship Specialty Start Date End Date Jerzy Vidal MD [address] [place] [phone] PCP - General 09/19/18 documented as of this encounter
--- OUTSIDE RECORDS SUMMARY | 2024-02-24 01:27 | XMS_ITS | Encounter Summary ---
Author Organization [facility] Address [facility] [place] [address] Care Team Providers Care Inspector Coated Fabrics Name Role Phone Gloria Red MD Primary Care Provider [phone] Reason for Visit * Reason Onset Date Comments Chemotherapy 05/31/2017 Encounter Details Date Type Department Care Team (Late st Contact Info) Description 05/31/2017 Telephone Hematology Oncology at [address] [phone] Beti Celeste RN Chemotherapy Social History Tobacco Use Types Packs/Day Years Used Date Smoking Tobacco: Never Smokeless Tobacco: Never Sex and Gender Information Value Date Recorded Sex Assigned at Not on file Gender Identity Not on file Sexual Orientation Not on file documented as of this encounter Miscellaneous Notes * Telephone Encounter - Beti Celeste RN - 05/31/2017 3:06 PM EST Post chemo call Placed call to patient to assess tolerance of first time chemotherapy treatment. Regimen received: Carbo/Tasol Date of treatment: 05/30 Assessment: Symptom?? Present (yes[y]/no[n]/ stable[s] from baseline)?? Additional information/Assessment?? GI? Nausea?none ?? Vomiting?? none ?? Nausea medication?? none ?? Tolerating diet?? yes ?? Maintaining fluid intake (indicate volume)?? Tea,water and Gatorade ?? Bowel movements regular?? yes ?? Diarrhea?? none? Mouth sores?none ?? General? Pain (0 none - 10 high)?? none ?? Using pain medications?? none Fever?? none ?? Neuro? Level of fatigue (0 - 5)?2 Took nap this pm?? Falls?? none ? Numbness/tingling in arms/legs?? none ?? Cognitive changes? Skin? Skin changes? Pinpoint red dots? Other s/s of bleeding? IV site/VAD problems? Musculoskeletal? Joint swelling or tenderness?? none ?? Arthralgias or myalgias? Voiding problems?? none ?? Color and quality of urine? Cardio-pulmonary? Shortness of breath?? none ?? Chest pain?? none ?? Swelling in legs? Calf pain or tenderness?none ?? Cough (productive/non-productive)?? none ?? Psychosocial? Coping? I? Need prescription renewals? Other issues :?? Anxiety. Support provided ?? Education provided: ?? Plan:? 1. 2. Reinforced to patient/care-diesel instructor to call facility 03/01 with any new/worsening signs and symptomsor concerns or questions.?? Phone number provided.?? Pt verbalized understanding and is in agreement with plan. ? documented in this encounter Plan of Treatment Upcoming Encounters Date Type Department Care Team (Late st Contact Info) Description 02/24/2024 9:00 AM EDT Office Visit Hematology/Oncology at [address] [phone] Shon Schneider MD [facility] [place] [address] [address] [place] [address] 02/24/2024 9:30 AM EDT Infusion Hematology Oncology at [address] [phone] 03/02/2024 11:00 AM EDT Office Visit Hematology/Oncology at [address] [phone] Shon Schneider MD [facility] [place] [place] [address] HEMATOLOGY AND ONCOLOGY [place], [place] [address] 03/02/2024 12:30 PM EDT Infusion Hematology Oncology at [address] [phone] 03/09/2024 10:00 AM EDT Office Visit Hematology/Oncology at [address] [phone] Shon Schneider MD [facility] [place] [address] [address] HEMATOLOGY AND ONCOLOGY [place], [place] [phone] 03/09/2024 10:30 AM EDT Infusion Hematology Oncology at [address] [phone] documented as of this encounter Visit Diagnoses Not on filedocumented in this encounter Care Teams Inspector Coated Fabrics Relationship Specialty Start Date End Date Gloria Red MD [address] [place] [address] [place] [phone] PCP - General Family Medicine 12/14/17 6/23/19 documented as of this encounter
--- OUTSIDE RECORDS SUMMARY | 2024-02-24 01:27 | XMS_ITS | Encounter Summary ---
Author Organization [facility] [place] [address] Care Team Providers Care Chief Controller Center Name Role Phone Gloria Red MD Primary Care Provider Reason for Visit * Reason Comments Cancer Encounter Details Date Type Department Care Team (Late st Contact Info) Description 05/30/2017 8:00 AM EST Office Visit Hematology/Oncology at [address] [phone] Jerrod White MD [address] [place] [phone] Thymic carcinoma Social History Tobacco Use Types Packs/Day Years Used Date Smoking Tobacco: Never Smokeless Tobacco: Never Sex and Gender Information Value Date Recorded Sex Assigned at Not on file Gender Identity Not on file Sexual Orientation Not on file documented as of this encounter Last Filed Vital Signs Vital Sign Reading Time Taken Comments Blood Pressure 125/96 05/30/2017 8:01 AM EST Pulse 94 05/30/2017 8:01 AM EST Temperature 36.6 ??C (97.9 ??F) 05/30/2017 8:01 AM ES T Respiratory Rate 18 05/30/2017 8:01 AM EST Oxygen Saturation 94% 05/30/2017 8:01 AM EST Inhaled Oxygen Concentration - - Weight 117.5 kg (259 lb) 05/30/2017 8:01 AM EST Height 176.5 cm (5' 9.49) 05/30/2017 8:01 AM ES T copied Body Mass Index 37.71 05/30/2017 8:01 AM EST documented in this encounter Progress Notes * Jerrod White MD - 05/30/2017 8:00 AM EST Diagnosis: 1) 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 The regiment being used uses an area under the curve for carboplatin dosing of 6 and the Taxane dose is at 200 mg/mm2. This is consistent with the NCCN guidelines and with the higher dosing, we will give her Neulasta. We went over risks and side effects of treatment today and what to expect with her chemotherapy today. She does have some Claritin at home and we talked about management of the aches and pains from Neulasta which can be quite variable. We also discussed the possible side effects of both the Taxane and carboplatin. I did tell her she should take nonsteroidal anti-inflammatories for a few days, but then should stop them as she may become relatively thrombocytopenic with the regiment. We talked about management of the aches and pains from the Taxane, potential allergic reactions. We talked about the reasons to call and the importance of calling if she gets a significant fever and not delaying evaluation for that. Symptom-swain, she still remains asymptomatic. She is here today with her and daughter, and is quite optimistic overall. She had no further questions and does wish to proceed with treatment. Laboratory obtained last shows a white count of 7.5, hemoglobin of 14.4, hematocrit 44.6, platelet count of 197. Absolute neutrophils count is 5.58. CMP shows normal electrolytes. A creatinine of 0.50 (0.8 is used in calculating her carboplatin dosing), calcium is 9.4, potassium 4.0. Her total protein is slightly increased at 8.6, but albumin of 4.1, bilirubin 1.2, ALP 75, and normal transaminases. Past Medical History: Diagnosis Date ??? Atrial [...] upon request. Final classification is deferred to resection.?Air Route Traffic Controller slides of this case were reviewed at the intradepartmental consultation conference. Immunoperoxidase stains were performed on this case to further characterize the lesion. ANTIBODY(CLONE)(BLOCK):RESULT Ckit (CD117) (EP10, [employer]) (2): Positive CD5 (Rabbit Monoclonal, clone SP19, [employer]) (2): Positive PAX-8 (MRQ-50, [place]) (2): Positive P40 (BC28, [place]) (2): Positive Keratin AE1-AE3 (AE1-AE3, [employer]) (2): Positive Chromogranin (LK2H10, [place]) (2): Positive Synaptophysin (27G12, [employer]) (2): Positive MIB-1 (DAKO) (MIB-1, [employer]) (2): 5-15% nuclei positive CK7 (RN7, [employer]) (2): Negative CK20 (Ks20.8, [employer]) (2): Negative TTF-1 (8G7G3/1, [place]) (2): Negative GATA3 (L50-823, [place]) (2): Negative CD34 (QBEnd/10, [employer]) (2): Negative CASE: [id number] Second Opinion PATIENT: BRAYAN PIERRE [facility] Department of Pathology [address] [place], [place] [address]IA License No.: [id number] Soft Work Wrapper Examiner: Dr. Juan Jose Mcleod Physician: EDVIN SYED M.D. Resident: Natali Flores?Kaylah Calle, Ph.D. Pathologist:? Bhargavi Gil M.D. PATHOLOGIC DIAGNOSIS: CONSULT SLIDES FROM [facility]; [place], [place]: A. MEDIASTINUM, MASS, BIOPSY ([id number]; 03/22/2017): ? MALIGNANT THYMIC EPITHELIAL NEOPLASM consistent [...] chain myosin and P63, confirming their benign nature.?Air Route Traffic Controller slides of this case were reviewed at the intradepartmental consultation conference.?(Dr. Bond)/[facility] [place] PET CT EYE TO THIGH?04/18/2017 2:03 PM Signs and Symptoms/Comments:? C7A.8-Other malignant neuroendocrine tumors (HCC)-ICD-10 R53-Tvftjyxau neoplasm of thymus (HCC)-ICD-10; thymic squamous cell ca, thymic neuroendocrine tumor, vertebral body lesions concerning for mets . Comparison: CT of the abdomen and pelvis from 03/23/2017, CT of the chest from 03/18/2017, ultrasound guided breast biopsy from 03/25/2017 Technique: Approximately 91 minutes following the IV injection of 15 mCi of U29-obggbxpydkfdmzdsah, 3D TOF PET imaging was obtained from the head to the upper thighs with attenuation correction using a [employer] dedicated closed ring PET / [...] that to consideration for resistant disease only. ASSESSMENT/PLAN: Brayan is fine today for her first treatment with carboplatin and Taxol with Neulasta. We will go ahead with that as planned. We will use both Aloxi and Emend as antiemetics as the dosing would be moderate to severe as far as nausea. We will see her back next week to see how she is doing with the first cycle and then plan on her next treatment again in 3 weeks. The plan is to restage her after 4 cycles of treatment or 3 months of treatment unless there are indications for scanning sooner than that. documented in this encounter Plan of Treatment Upcoming Encounters Date Type Department Care Team (Late st Contact Info) Description 02/24/2024 9:00 AM EDT Office Visit Hematology/Oncology at [address] [phone] Shon Schneider MD [facility] [place] [address] [address] [place] [address] 02/24/2024 9:30 AM EDT Infusion Hematology Oncology at [address] [phone] 03/02/2024 11:00 AM EDT Office Visit Hematology/Oncology at [address] [phone] Shon Schneider MD [facility] [place] [address] [address] HEMATOLOGY AND ONCOLOGY [place], [place] [phone] 03/02/2024 12:30 PM EDT Infusion Hematology Oncology at [address] [phone] 03/09/2024 10:00 AM EDT Office Visit Hematology/Oncology at [address] [phone] Shon Schneider MD [facility] [place] [address] Ciara Pitts APRN [address] [place] [address] DR HEMATOLOGY AND ONCOLOGY [place], [place] [phone] 03/09/2024 10:30 AM EDT Infusion Hematology Oncology at [address] [phone] documented as of this encounter Visit Diagnoses Diagnosis 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 documented in this encounter Care Teams Chief Controller Center Relationship Specialty Start Date End Date Gloria Red MD [address] [place] [address] [place] [phone] PCP - General Family Medicine 05/26/17 12/03/18 documented as of this encounter
--- OUTSIDE RECORDS SUMMARY | 2024-02-24 01:27 | XMS_ITS | Encounter Summary ---
Author Organization [facility] Address [address] [place] [address] Care Team Providers Care Hedis Manager Name Role Phone Jerzy Vidal MD Primary Care Provider [phone] Encounter Details Date Type Department Care Team (Late st Contact Info) Description 08/19/2020 Lab Requisition [facility] Pathology & Laboratory Medicine - [facility] [address] [place] [address] Outr Resulting Lab, Provider Social History Tobacco [...] Procedure Name Priority Date/Time Associated Diagnosis Comments GLUCOSE, FLUID Routine 08/19/2020 9:30 EST documented in this encounter Results * GLUCOSE, FLUID (08/19/2020 9:30 EST) Glucose, Fluid 102 See Note mg/dL 08/19/2020 22:37 EST [facility] Comment: Reference range unavailable. Clinical correlation required. This Fluid Glucose assay was developed and its performance characteristics determined by [facility]. ??It has not been cleared or approved by the US Food and Drug Administration. Fluid PLEURAL FLUID / Unknown 08/19/2020 9:30 EST 08/19/2020 21:52 EST Narrative [facility] - 08/19/2020 22:37 EST Pleural Fluid Provider Outr Resulting Lab GEN LAB UNIT COLLECT ORDERABLES [facility] [address] [place] [address] documented in this encounter Visit Diagnoses Not on filedocumented in this encounter Care Teams Hedis Manager Relationship Specialty Start Date End Date Jerzy Vidal MD [address] [place] [phone] PCP - General 09/19/18 documented as of this encounter
--- OUTSIDE RECORDS SUMMARY | 2024-02-24 01:27 | XMS_ITS | Encounter Summary ---
Author Organization [facility] Address [address] [place] [address] Care Team Providers Care Investment Manager Name Role Phone Jerzy Vidal MD Primary Care Provider [phone] Encounter Details Date Type Department Care Team (Late st Contact Info) Description 09/26/2018 Results Only Imaging [facility] [phone] Shon Schneider MD [address] [place] [phone] Social History Tobacco Use Types Packs/Day Years [...] Diagnosis Comments CT ABDOMEN, PELVIS W CONTRAST 09/26/2018 11:[address] CHEST W CONTRAST 09/26/2018 1 1:15 EDT documented in this encounter Results * CT ABDOMEN, PELVIS W CONTRAST (09/26/2018 11:19 EDT) Anatomical Region Laterality Modality Other 09/26/2018 11:1 9 EDT 09/26/2018 15:29 EDT Narrative 09/26/2018 15:[address] ABDOMEN, PELVIS W CONTRAST ??09/26/2018 11:19 AM Signs and Symptoms/Comments: ?? 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 On therapy with sunitinb. Technique: CT of the abdomen and pelvis was performed following the administration intravenous contrast; coronal and sagittal multiplanar reconstructions generated. Comparison: CT abdomen and pelvis 05/11/18112016. PET/CT 04/18/2017. Findings: Lower chest: For findings please see the dedicated report from concurrent chest CT. Hepatobiliary: No focal hepatic lesion identified. No biliary duct dilatation. Gallbladder is unremarkable. Spleen, pancreas, adrenal glands: No suspicious lesions identified. Kidneys, ureters, bladder: The kidneys enhance symmetrically with no suspicious lesion identified. No hydronephrosis or nephrolithiasis. The ureters are normal in course and caliber. Urinary bladder is unremarkable. Uterus, ovaries: Multiple calcified uterine fibroids are again seen. Possible fluid in the endometrial canal. No adnexal mass identified. Bowel: No evidence of bowel wall thickening or obstruction. Appendix is normal. Peritoneal cavity / Subperitoneal space: No free fluid or free air identified. Lymphovascular: No lymphadenopathy identified. Predominantly fatty-replaced retroperitoneal lymph nodes are unchanged. Mild atherosclerotic calcification is seen throughout the normal caliber abdominal aorta and its branches. Abdominal wall: Numerous fat and bowel containing ventral hernias are unchanged from prior. Umbilical hernia is also unchanged. The most superior ventral hernia partially contains a portion of the transverse colon (Sinha's hernia), without evidence of obstruction or strangulation. Musculoskeletal: Multiple lytic and sclerotic lesions in the spine are unchanged. No new suspicious osseous lesion identified. Impression: 1. ??Unchanged lytic and sclerotic lesions in the spine. No evidence of new metastatic disease or adenopathy within the abdomen or pelvis. 2. ??Fibroid uterus. Possible fluid within the endometrial canal. Correlate clinically for evidence of vaginal bleeding. 3. ??Multiple unchanged fat and bowel containing ventral and umbilical hernias without evidence of obstruction or strangulation. 4. ??Otherwise as above. I have personally reviewed the images and the above interpretation and agree with the findings. 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 On therapy with sunitinb. Technique: CT of the abdomen and pelvis was performed following the administration intravenous contrast; coronal and sagittal multiplanar reconstructions generated. Comparison: CT abdomen and pelvis 05/11/18112016. PET/CT 04/18/2017. Findings: Lower chest: For findings please see the dedicated report from concurrent chest CT. Hepatobiliary: No focal hepatic lesion identified. No biliary duct dilatation. Gallbladder is unremarkable. Spleen, pancreas, adrenal glands: No suspicious lesions identified. Kidneys, ureters, bladder: The kidneys enhance symmetrically with no suspicious lesion identified. No hydronephrosis or nephrolithiasis. The ureters are normal in course and caliber. Urinary bladder is unremarkable. Uterus, ovaries: Multiple calcified uterine fibroids are again seen. Possible fluid in the endometrial canal. No adnexal mass identified. Bowel: No evidence of bowel wall thickening or obstruction. Appendix is normal. Peritoneal cavity / Subperitoneal space: No free fluid or free air identified. Lymphovascular: No lymphadenopathy identified. Predominantly fatty-replaced retroperitoneal lymph nodes are unchanged. Mild atherosclerotic calcification is seen throughout the normal caliber abdominal aorta and its branches. Abdominal wall: Numerous fat and bowel containing ventral hernias are unchanged from prior. Umbilical hernia is also unchanged. The most superior ventral hernia partially contains a portion of the transverse colon (Sinha's hernia), without evidence of obstruction or strangulation. Musculoskeletal: Multiple lytic and sclerotic lesions in the spine are unchanged. No new suspicious osseous lesion identified. Impression: 1. Unchanged lytic and sclerotic lesions in the spine. No evidence of new metastatic disease or adenopathy within the abdomen or pelvis. 2. Fibroid uterus. Possible fluid within the endometrial canal. Correlate clinically for evidence of vaginal bleeding. 3. Multiple unchanged fat and bowel containing ventral and umbilical hernias without evidence of obstruction or strangulation. 4. Otherwise as above. I have personally reviewed the images and the above interpretation and agree with the findings. 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 On therapy with sunitinb. Technique: A single breath-hold helical CT acquisition was performed through the chest on a multidetector-row scanner with a reconstructed slice thickness of 3 mm and retrospectively reconstructed 0.9 mm thick sections with 0.45 mm overlapping intervals. ??The scans were obtained from the lung apices through the bases during the intravenous administration of 70-100 cc of 370 mg% nonionic contrast injected at a rate of 2 cc/second. Scans were reviewed on a dedicated PACS workstation for analysis. Comparison: Chest CT with contrast May 11, 2019. Findings: CT of the chest performed after IV contrast administration. Lower neck: No abnormalities. Chest wall soft tissues: Again noted is a lobulated soft tissue mass within the left breast containing eccentric calcification which was present previously and is unchanged in size. Mediastinum and william: The soft tissue mass with a lobulated contour in the anterior mediastinum adjacent to the transverse and ascending aorta is again seen and areas of calcification. The mass is unchanged in size compared to the studies of April,. There are slightly enlarged lymph nodes in the anterior mediastinum in the left cardiophrenic angle and anterior to the pericardial reflection that were present previously and are unchanged. ??The esophagus appears normal. Heart and mediastinal vasculature: ??There is atherosclerotic obscuration of the thoracic aorta and coronary arteries. There is mild aortic valvular calcification. Large airways: ??No abnormalities. Lungs: ??No abnormalities. Pleura: There is subtle nodularity along the left pleural surface including the left oblique fissure with a lobulated nodule seen along the left diaphragmatic pleural surface and within the pulmonary ligament. These all remain unchanged when compared to the studies of April 2018. No pleural effusions seen. Upper abdomen (limited to upper abdomen, not optimized for abdominal imaging): No abnormalities. Bones: ??No significant abnormalities. Impression: 1. ??Stable appearance of anterior mediastinal mass with minimal juxta pericardial tacos and left-sided pleural disease all which appear stable from April,. 2. ??Atherosclerotic disease of the coronary arteries and aorta. 3. ??Stable left breast mass unchanged. 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 On therapy with sunitinb. Technique: A single breath-hold helical CT acquisition was performed through the chest on a multidetector-row scanner with a reconstructed slice thickness of 3 mm and retrospectively reconstructed 0.9 mm thick sections with 0.45 mm overlapping intervals. The scans were obtained from the lung apices through the bases during the intravenous administration of 70-100 cc of 370 mg% nonionic contrast injected at a rate of 2 cc/second. Scans were reviewed on a dedicated PACS workstation for analysis. Comparison: Chest CT with contrast May 11, 2019. Findings: CT of the chest performed after IV contrast administration. Lower neck: No abnormalities. Chest wall soft tissues: Again noted is a lobulated soft tissue mass within the left breast containing eccentric calcification which was present previously and is unchanged in size. Mediastinum and william: The soft tissue mass with a lobulated contour in the anterior mediastinum adjacent to the transverse and ascending aorta is again seen and areas of calcification. The mass is unchanged in size compared to the studies of April,. There are slightly enlarged lymph nodes in the anterior mediastinum in the left cardiophrenic angle and anterior to the pericardial reflection that were present previously and are unchanged. The esophagus appears normal. Heart and mediastinal vasculature: There is atherosclerotic obscuration of the thoracic aorta and coronary arteries. There is mild aortic valvular calcification. Large airways: No abnormalities. Lungs: No abnormalities. Pleura: There is subtle nodularity along the left pleural surface including the left oblique fissure with a lobulated nodule seen along the left diaphragmatic pleural surface and within the pulmonary ligament. These all remain unchanged when compared to the studies of April 2018. No pleural effusions seen. Upper abdomen (limited to upper abdomen, not optimized for abdominal imaging): No abnormalities. Bones: No significant abnormalities. Impression: 1. Stable appearance of anterior mediastinal mass with minimal juxta pericardial tacos and left-sided pleural disease all which appear stable from April,. 2. Atherosclerotic disease of the coronary arteries and aorta. 3. Stable left breast mass unchanged. Shon Schneider MD IMG CT ORDERABLES documented in this encounter Visit Diagnoses Not on filedocumented in this encounter Care Teams Investment Manager Relationship Specialty Start Date End Date Jerzy Vidal MD [address] [place] [phone] PCP - General 09/19/18 documented as of this encounter
--- OUTSIDE RECORDS SUMMARY | 2024-02-24 01:27 | XMS_ITS | Encounter Summary ---
Author Organization [facility] Address [address] [place] [address] Care Team Providers Care Inside Sales Professional Name Role Phone Jerzy Vidal MD Primary Care Provider [phone] Encounter Details Date Type Department Care Team (Late st Contact Info) Description 04/02/2022 Lab Requisition [facility] Pathology & Laboratory Medicine - [facility] [address] [place] [address] Outr Resulting Lab, Provider Social History Tobacco [...] Associated Diagnosis Comments TOTAL PROTEIN, FLUID Routine 04/02/2022 13:56 EDT LDH, FLUID Routine 04/02/2022 13:56 EDT documented in this encounter Results * LDH, FLUID (04/02/2022 13:56 EDT) LDH, Fluid 97 See Note IU/L 04/02/2022 21:11 EDT [facility] Comment: Pleural fluid Reference range unavailable. Clinical correlation required. This Fluid LDH assay was developed and its performance characteristics determined by [facility]. ??It has not been cleared or approved by the Food and Drug Administration. Fluid PLEURAL FLUID / Unknown 04/02/2022 13:56 EDT 04/02/2022 20:49 EDT Provider Outr Resulting Lab GEN LAB UNIT COLLECT ORDERABLES [facility] [address] [place] [address] * TOTAL PROTEIN, FLUID (04/02/2022 13:56 EDT) Total Protein, Fluid 2.4 See Note g/dL 04/02/2022 21:11 EDT [facility] Comment: Pleural fluid Reference range unavailable. Clinical correlation required. This Fluid Total Protein assay was developed and its performance characteristics determined by [facility]. ??It has not been cleared or approved by the US Food and Drug Administration. Reference range unavailable. Clinical correlation required. This Fluid Total Protein assay was developed and its performance characteristics determined by [facility]. ??It has not been cleared or approved by the US Food and Drug Administration. Fluid PLEURAL FLUID / Unknown 04/02/2022 13:56 EDT 04/02/2022 20:49 EDT Provider Outr Resulting Lab GEN LAB UNIT COLLECT ORDERABLES [facility] [address] [place] [address] documented in this encounter Visit Diagnoses Not on filedocumented in this encounter Care Teams Inside Sales Professional Relationship Specialty Start Date End Date Jerzy Vidal MD [address] [place] [phone] PCP - General 09/19/18 documented as of this encounter
--- OUTSIDE RECORDS SUMMARY | 2024-02-24 01:27 | XMS_ITS | Encounter Summary ---
Author Organization [facility] Address [address] [place] [address] Care Team Providers Care Information Systems Technician Name Role Phone Jerzy Vidal MD Primary Care Provider [phone] Encounter Details Date Type Department Care Team (Late st Contact Info) Description 08/15/2020 Lab Requisition [facility] [place] Pathology & Laboratory Medicine - [facility] [address] [place] [address] Outr Resulting Lab, Provider Social History Tobacco [...] Procedure Name Priority Date/Time Associated Diagnosis Comments [facility] Today 08/15/2020 10:08 EST COVID-19 TESTING Routine 08/15/2020 10:0 8 EST documented in this encounter Results * [facility] (08/15/2020 10:08 EST) Swab ENTIRE NASOPHARYNX / Unknown 08/15/2020 10:08 EST 08/15/2020 22:01 EST Provider Outr Resulting Lab MICROBIOLOGY - GENERAL ORDERABLES Performing Organization Address City/State/[facility] Co de Phone Number [facility] [address] [place] [address] * COVID-19 TESTING (08/15/2020 10:08 EST) COVID-19 rt-PCR Result Negative Negative 08/16/2020 16:51 EST [facility] Comment: This test has not been FDA cleared or approved. This test has been authorized by FDA under an EUA for use by authorized laboratories. This test has been authorized only for detection of nucleic acid from 2019-nCoV, not for any other viruses or pathogens. This test is only authorized for the duration of the declaration that circumstances exist justifying the authorization of emergency use of in vitro diagnostic tests for detection and/or diagnosis of 2019-nCoV under section 564(b)(1) of Act, 21 U.S.C ?? 360bbb-3(b) (1), unless the authorization is terminated or revoked sooner. Negative results do not preclude 2019-nCoV infection and should not be used as the sole basis for treatment or other patient management decisions. Negative results must be combined with clinical observations, patient history, and epidemiological information. This test was developed and its performance characteristics determined by [facility]. It has not been cleared or approved by the US Food and Drug Administration. FDA does not require this test to go through premarket FDA review. This test is used for clinical purposes. It should not be regarded as investigational or for research. This laboratory is certified under the Clinical Laboratory Improvement Amendments (CLIA) as qualified to perform high complexity clinical laboratory testing. This test is based on the CDC COVID-19 Emergency Use Authorization (EUA) assay, with minor modification as defined by the FDA Performed on the Trendient 7 Flex RT-PCR System. Performing Lab [facility] Lab 08/16/2020 16:51 EST [facility] Swab 08/15/2020 10:0 8 EST 08/15/2020 22:01 EST Provider Outr Resulting Lab MICROBIOLOGY - GENERAL ORDERABLES [facility] [address] [place] [address] documented in this encounter Visit Diagnoses Not on filedocumented in this encounter Care Teams Information Systems Technician Relationship Specialty Start Date End Date Jerzy Vidal MD [address] [place] [phone] PCP - General 09/19/18 documented as of this encounter
--- OUTSIDE RECORDS SUMMARY | 2024-02-24 01:28 | XMS_ITS | Encounter Summary ---
Author Organization [facility] Address [address] [place] [address] Care Team Providers Care Medical Scribe Name Role Phone Gloria Red MD Primary Care Provid er Reason for Referral * Consult (Routine) - Closed Specialty Diagnoses / Procedures Referred By Franklyn del rio Referred To Contact Diagnoses Lung mass Gayla Tomas MD [address] [place] [phone] Referral ID Status Reason Start Date Expiration Date V isits Requested Visits Authorized [id number] Closed Specialty Services Required 04/18/2017 1 1 Question Answer Reason for Request: second opinion Scheduling Comments (optional ? describe specific scheduling needs if applicable): She is scheduled to see Dr. Vega on 04/29 Reason for Visit * Reason Onset Date Comments Appointment Related 04/12/2017 Returning Call 04/13/2017 Referral Request 04/18/2017 Encounter Details Date Type Department Care Team (Late st Contact Info) Description 04/12/[address] [facility] Cancer Center Hematology & Oncology - [address] [phone] Gayla Tomas MD [address] [place] [phone] Appointment Related; Returning Call; Referral Request Social History Tobacco Use Types Packs/Day [...] encounter Miscellaneous Notes * Telephone Encounter - Coral Martin RN - 04/18/2017 1646 EST A message was left at the number provided to request a fax number to send the referral they have requested. Referral was placed. * Telephone Encounter - Sarah Bowen - 04/18/2017 1539 EST [facility] is calling to get a referral for patient to see a doctor out of network. Please call back to further discuss. * Telephone Encounter - Gina Beasley - 04/13/2017 1651 EDT Called and spoke to pt about PET scan scheduled on 04/18 at 11 [facility] that [facility] Pt agreed to appts and had many questions about the machine and what I was able to answer I directed her to call Radiology who could better answer those questions. Pt agreed to all apptsand plan * Telephone Encounter - Ivory Dodd - 04/13/2017 0959 EDT Reason for Call: Appointment Related and Returning Call Summary/Symptoms: Pt returning call to Gina. Ivory Dodd 04/13/2017 9:59 * Telephone Encounter - Gina Beasley - 04/12/2017 1712 EDT CALLED AND SPOKE TO PT ABOUT THE PET SCAN THAT HAS BEEN SCHEDULED ON 04/18 AND SHE SAID SHE DIDN'T WANT TO TALK ABOUT IT RIGHT NOW AND THAT SHE WOULD CALL BACK TOMORROW. documented in this encounter Plan of Treatment Scheduled Referrals Name Type Priority Associated Diagnoses Orde r Schedule AMB CONS/FOLLOW UP ONCOLOGY Outpatient Referral Routine Lung mass Ordered: 04/18/2017 documented as of this encounter Visit Diagnoses Diagnosis Lung mass- Primary Swelling, mass, or lump in chest documented in this encounter Care Teams Medical Scribe Relationship Specialty Start Date End Date Gloria Red MD [address] [place] [address] [place] [address] PCP - General 04/05/17 09/18/18 documented as of this encounter
--- OUTSIDE RECORDS SUMMARY | 2024-02-24 01:28 | XMS_ITS | Encounter Summary ---
Author Organization [facility] Address [address] [place] [address] Care Team Providers Care Divine Healer Name Role Phone Gloria Red MD Primary Care Provid er Reason for Visit * Reason Onset Date Comments Paperwork request 06/24/2017 Encounter Details Date Type Department Care Team (Late Contact Info) Description 06/24/2017 Telephone [facility] Cancer Center Hematology & Oncology - [facility] [address] [place] [address] Adriane Reyes RN Paperwork request Social History Tobacco Use Types Packs/Day Years [...] encounter Miscellaneous Notes * Telephone Encounter - Adriane Leblanc - 06/24/2017 1203 EST Called to confirm that disability paperwork has been received, and to confirm that Monica is taking a full leave. Monica confirmed this, paperwork to be mailed to her employer directly once signed by Dr. Tomas. documented in this encounter Plan of Treatment Not on file documented as of this encounter Visit Diagnoses Not on filedocumented in this encounter Care Teams Divine Healer Relationship Specialty Start Date End Date Gloria Red MD [address] [place] [address] [place] [address] PCP - General 04/05/17 09/18/18 documented as of this encounter
--- OUTSIDE RECORDS SUMMARY | 2024-02-24 01:28 | XMS_ITS | Encounter Summary ---
Author Organization [facility] Address [address] [place] [address] Care Team Providers Care Sorting Cows Worker Name Role Phone Gloria Red MD Primary Care Provid er Reason for Visit * Reason Onset Date Comments Referral Request 04/21/2017 out of network Encounter Details Date Type Department Care Team ([facility] Contact Info) Description 04/21/2017 Telephone [facility] Cancer Center Hematology & Oncology - [facility] [address] [place] [address] Gayla Tomas MD [address] [facility], [facility] [address] [place] [address] Referral Request (out of network) Social History Tobacco Use Types Packs/Day Years [...] Telephone Encounter - Coral Martin RN - 04/25/2017 1504 EST A message was left for Berkley to discuss the form she is referring to as I am not familiar with a form for out of network coverage at in network rates. 04/26: Spoke with Tera at [facility] who states she has a managed plan so we just need to fill out the prior auth form and fax it to the [facility] department at [phone]. This form was faxed as an urgent request since her appointment is on 04/29. Berkley returns my call and states she has faxed a form to me this morning. She is aware that I contacted [facility] directly this morning and a prior auth form was faxed as an urgent request this morning. Spoke with Viola from [facility] who is wondering which provider Monica will be seeing at [facility], she also needs the NPI of the practice. I advised her to contact Berkley at [facility], the number was provided to get these answers. * Telephone Encounter - Sun Cordoba - 04/25/2017 1435 EST Please send referral for out of network to cover in network rates directly to [facility]- fax [phone] dr. Roddy Vega (NPI- [id number]) / Dr. Daniel Connor (NPI- [id number]) * Telephone Encounter - Adriane Leblanc - 04/22/2017 0940 EST Spoke with Berkley at [facility], let her know that referral for second opinion was placed on 04/18.This was faxed to [facility]. Berkley states that patient will be seeing Dr. Vega and Dr. Daniel Connor ( ) at [facility]. She says a referral for an aal-hk-kornyai provider to cover at in-network rates may be needed. Berkley will call if anything further is needed. * Telephone Encounter - Adriane Leblanc - 04/21/2017 1226 EST Returned call and left message. * Telephone Encounter - Sarah Bowen - 04/21/2017 1145 EST Berkley from [facility] is calling requesting a out of network referral. She states that she will be there until 4:00pm today, and would like a call back. documented in this encounter Plan of Treatment Not on file documented as of this encounter Visit Diagnoses Diagnosis Lung mass- Primary Swelling, mass, or lump in chest documented in this encounter Care Teams Sorting Cows Worker Relationship Specialty Start Date End Date Gloria Red MD [address] [place] [address] [place] [address] PCP - General 04/05/17 09/18/18 documented as of this encounter
--- OUTSIDE RECORDS SUMMARY | 2024-02-24 01:28 | XMS_ITS | Encounter Summary ---
Author Organization [facility] Address [address] [place] [address] Care Team Providers Care Equipment Scheduler Name Role Phone Gloria Red MD Primary Care Provid er Reason for Visit * Reason Onset Date Comments Paperwork request 06/10/2017 Encounter Details Date Type Department Care Team ([facility] Contact Info) Description 06/10/2017 Telephone [facility] Cancer Center Hematology & Oncology - [facility] [address] [place] [address] Adriane Reyes RN Paperwork request Social History [...] * Telephone Encounter - Adriane Leblanc - 06/10/2017 1106 EST Patient has long-term disability paperwork that needs to be filled out by the physician who diagnosed her cancer, Dr. Tomas. She will be mailing it attention to Adriane Reyes/Karol Demarco to [facility]. When complete, please mail back to patient. documented in this encounter Plan of Treatment Not on file documented as of this encounter Visit Diagnoses Not on filedocumented in this encounter Care Teams Equipment Scheduler Relationship Specialty Start Date End Date Gloria Red MD [address] [place] [address] [place] [address] PCP - General 04/05/17 09/18/18 documented as of this encounter
--- OUTSIDE RECORDS SUMMARY | 2024-02-24 01:28 | XMS_ITS | Encounter Summary ---
Author Organization [facility] Address [address] [place] [address] Care Team Providers Care Housing Relocation Name Role Phone Gloria Red MD Primary Care Provid er Reason for Visit * Reason Onset Date Comments Other 04/11/2017 Encounter Details Date Type Department Care Team ([facility] Contact Info) Description 04/11/2017 Telephone [facility] Cancer Center Hematology & Oncology - [facility] [address] [place], [place] [phone] Gayla Tomas MD 111 [facility], [facility] [address] [place] [address] Other Social History Tobacco Use Types Packs/Day [...] encounter Miscellaneous Notes * Telephone Encounter - Clarence Tomas MD - 04/11/2017 0849 EDT I got a response from [facility] regarding her case and called her to discuss next steps, however, it went to answering machine and I have left a message with call back number, awaiting response. documented in this encounter Plan of Treatment Not on file documented as of this encounter Visit Diagnoses Not on filedocumented in this encounter Care Teams Housing Relocation Relationship Specialty Start Date End Date Gloria Red MD [address] [place] [address] [place] [address] PCP - General 04/05/17 09/18/18 documented as of this encounter
--- OUTSIDE RECORDS SUMMARY | 2024-02-24 01:28 | XMS_ITS | Encounter Summary ---
Author Organization [facility] Address [address] [place] [address] Care Team Providers Care Oracle Manufacturing Consultant Name Role Phone Gloria Red MD Primary Care Provid er Encounter Details Date Type Department Care Team (Late st Contact Info) Description 04/18/2017 Documentation Visit [facility] Cancer Center Hematology & Oncology - [facility] [address] [place] [address] Hiral Denise Social History Tobacco Use Types Packs/Day Years [...] No 04/05/2017 documented as of this encounter Progress Notes * Hiral Denise - 04/18/2017 1108 EST Referral from Adriane Reyes-SEBASTIAN pt feeling overwhelmed with appointments re: transportation and cost of travel. Called pt; no answer. Left a detailed vm with narrative writer's call back information. Plan- await call back. documented in this encounter Plan of Treatment Not on file documented as of this encounter Visit Diagnoses Not on filedocumented in this encounter Care Teams [employer] Consultant Relationship Specialty Start Date End Date Gloria Red MD [address] [place] [address] [place] [address] PCP - General 04/05/17 09/18/18 documented as of this encounter
--- OUTSIDE RECORDS SUMMARY | 2024-02-24 01:28 | XMS_ITS | Encounter Summary ---
Author Organization [facility] Address [address] [place] [address] Care Team Providers Care Cattyman Name Role Phone Gloria Red MD Primary Care Provid er Reason for Visit * Reason Onset Date Comments Testing 04/07/2017 Encounter Details Date Type Department Care Team (Late Contact Info) Description 04/07/2017 Telephone [facility] Cancer Center Hematology & Oncology - [facility] [place] [address] [place], [place] [phone] Adriane Reyes RN Testing Social History Tobacco Use Types Packs/Day Years [...] encounter Miscellaneous Notes * Telephone Encounter - Dee DeeEmdund Adriane Reyes - 04/08/2017 1614 EDT Called patient with the following instructions to have labwork and a 24 hour urine collection done prior to her next appt with Dr. Tomas: Dietary and Medication Restrictions - 48 hours before or during collection 1. Patients should not eat avocados, bananas, butternuts, cantaloupe, dates, eggplant, grapefruit, hickory nuts, honeydew melon, kiwifruit, melon, nuts, pecans, pineapple, plantains, plums, tomatoes and tomato products, or walnuts which are high in serotonin for 48 hours before or during collection. 2. Certain medications, such as L-dopa, acetaminophen, salicylates, and cough syrup containing guaifenesin must also be avoided. She plans to have labwork done Wednesday 04/18, because she lives 2 hours away, so she can bring her 24hour urine collection back to the lab when she has her port placement scheduled on 04/20. Pt is alsoasking about insurance coverage for testing mentioned by Dr. Tomas. I let her know that if she is referring to [facility] testing, we received notification that [facility] financial assistance will provide assistance to cover 100% of the cost. They first bill insurance, then cover any remaining cost. Monica is happy to hear this news and verbalizes understanding of instructions for labwork. documented in this encounter Plan of Treatment Not on file documented as of this encounter Visit Diagnoses Not on filedocumented in this encounter Care Teams Cattyman Relationship Specialty Start Date End Date Gloria Red MD [address] [place] [address] [place] [address] PCP - General 04/05/17 09/18/18 documented as of this encounter
--- OUTSIDE RECORDS SUMMARY | 2024-02-24 01:28 | XMS_ITS | Encounter Summary ---
Author Organization [facility] Address [address] [place] [address] Care Team Providers Care Register Of Wills Name Role Phone Gloria Red MD Primary Care Provid er Reason for Referral * Consult (Routine) - Closed Specialty Diagnoses / Procedures Referred By Franklyn del rio Referred To Contact Diagnoses Lung mass Gayla Tomas MD 111 [facility] [address] [place] [address] Referral ID Status Reason Start Date Expiration Date V isits Requested Visits Authorized [id number] Closed Specialty Services Required 04/15/2017 1 1 * Consult (Routine) - Closed Specialty Diagnoses / Procedures Referred By Franklyn del rio Referred To Contact Diagnoses Lung mass Gayla Tomas MD 111 [facility] [address] [place] [address] Referral ID Status Reason Start Date Expiration Date V isits Requested Visits Authorized [id number] Closed Specialty Services Required 04/15/2017 1 1 Question Answer Insurance / Financial Yes Transportation Yes Emotional distress Yes Encounter Details Date Type Department Care Team (Late st Contact Info) Description 04/15/2017 Orders Only [facility] Cancer Center Hematology & Oncology [address] [address] Adriane Reyes RN Lung mass (Primary Dx) Social History Tobacco Use Types [...] as of this encounter Plan of Treatment Scheduled Referrals Name Type Priority Associated Diagnoses Orde r Schedule [facility]B SOCIAL WORK SERVICES Outpatient Referral Routine Lung mass Ordered: 04/15/2017 [facility]B CANCER SOCIETY (ACS) SERVICES Outpatient Referral Routine Lung mass Ordered: 04/15/2017 documented as of this encounter Visit Diagnoses Diagnosis Lung mass- Primary Swelling, mass, or lump in chest documented in this encounter Care Teams Register Of Wills Relationship Specialty Start Date End Date Gloria Red MD [address] [place] [address] [place] [address] PCP - General 04/05/17 09/18/18 documented as of this encounter
--- OUTSIDE RECORDS SUMMARY | 2024-02-24 01:28 | XMS_ITS | Encounter Summary ---
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 ADDITIONAL INFORMATION The testing method is a homogeneous time-resolved immunofluorescent assay. . Analyte Specific Reagent: This test was developed and its performance characteristics determined by [facility]. It has not been cleared or approved by the U.S. Food and Drug Administration. ? Values obtained with different assay methods or kits may be different and cannot be used interchangeably. ? Test results cannot be interpreted as absolute evidence for the presence or absence of malignant disease. Performed by: [facility]: [facility] [address], [place] [address], Lab Dir: Alex Cameron II, M.D., Ph.D. 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
--- OUTSIDE RECORDS SUMMARY | 2024-02-24 01:28 | XMS_ITS | Encounter Summary ---
Author Organization [facility] Address [address] [place] [address] Care Team Providers Care Telephone Services Sales Representative Name Role Phone Gloria Red MD Primary Care Provid er Encounter Details Date Type Department Care Team (Late st Contact Info) Description 04/18/2017 11:07 EST - 04/18/2017 23:59 EST Hospital Encounter [address] [address] Gayla Tomas MD 111 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
--- OUTSIDE RECORDS SUMMARY | 2024-02-24 01:28 | XMS_ITS | Encounter Summary ---
Author Organization [facility] Address [address] [place] [address] Care Team Providers Care Clinical Advisor Name Role Phone Gloria Red MD Primary Care Provid er Reason for Visit * Reason Onset Date Comments Appointment Related 05/21/2017 Encounter Details Date Type Department Care Team ([facility] Contact Info) Description 05/21/2017 Telephone [facility] Cancer Center Hematology & Oncology - [facility] [address] [place], [place] [id number] Gayla Tomas MD 111 [facility], [facility] [address] [place] [address] Appointment Related Social History Tobacco Use Types Packs/Day Years [...] encounter Miscellaneous Notes * Telephone Encounter - Lin Corona RN - 05/24/2017 1251 EST A follow-up call has been made to Ms Jaramillo after conferring with Dr Tomas. Ms Jaramillo confirms that she has had a port placed at 05/20 and is scheduled to meet with an oncologist with [facility] in [facility] 05/26. She will call with questions or concerns as needed. * Telephone Encounter - Liliana Khanna - 05/21/2017 1004 EST PAS Message: Monica called to cancel appointment with Clarence Tomas MD on 05/23 at 6am due to don't recall anything that was discussed last visit Patient would like a call back to reschedule?No Monica will call back to inquire about it on Tuesday documented in this encounter Plan of Treatment Not on file documented as of this encounter Visit Diagnoses Not on filedocumented in this encounter Care Teams Clinical Advisor Relationship Specialty Start Date End Date Gloria Red MD [address] [place] [address] [place] [address] PCP - General 04/05/17 09/18/18 documented as of this encounter
--- OUTSIDE RECORDS SUMMARY | 2024-02-24 01:28 | XMS_ITS | Encounter Summary ---
Author Organization [facility] Address [address] [place] [address] Care Team Providers Care Shoulder Sawyer Name Role Phone Gloria eRd MD Primary Care Provid er Encounter Details Date Type Department Care Team (Late st Contact Info) Description 04/21/2017 Orders Only [facility] Cancer Center Hematology & Oncology - [facility] [address] [place] [address] Bairon Kruse Social History Tobacco Use Types Packs/Day Years [...] on filedocumented in this encounter Care Teams Shoulder Sawyer Relationship Specialty Start Date End Date Gloria Red MD [address] [place] [address] [place] [address] PCP - General 04/05/17 09/18/18 documented as of this encounter
--- OUTSIDE RECORDS SUMMARY | 2024-02-24 01:28 | XMS_ITS | Encounter Summary ---
Author Organization [facility] Address [address] [place] [address] Care Team Providers Care Sales Warehouse Driver Name Role Phone Gloria Red MD Primary Care Provid er Reason for Visit * Reason Onset Date Comments Returning Call 05/06/2017 records Encounter Details Date Type Department Care Team ([facility] Contact Info) Description 05/06/2017 Telephone [facility] Cancer Center Hematology & Oncology - [facility] [address] [place], [place] [id number] Gayla Tomas MD 111 [facility] 2 [place] [address] Returning Call (records) Social History Tobacco Use Types Packs/Day Years [...] * Telephone Encounter - Adriane Leblanc - 05/06/2017 0929 EST Returned call to Gloria, let her know Dr. Tomas unable to access patient's notes via Care Everywhere. Let her know records have been requested via medical records, if she is unable to fax the notes, but I appreciate her looking into it. * Telephone Encounter - Janice Coburn V. - 05/06/2017 0908 EST New patient coordinators are not supposed to fax notes, but should be in Care Everywhere. Also, Gloria is waiting for her line maintenance supervisor to try to get permission to fax. documented in this encounter Plan of Treatment Not on file documented as of this encounter Visit Diagnoses Not on filedocumented in this encounter Care Teams Sales Warehouse Driver Relationship Specialty Start Date End Date Gloria Red MD [address] [place] [address] [place] [address] PCP - General 04/05/17 09/18/18 documented as of this encounter
--- OUTSIDE RECORDS SUMMARY | 2024-02-24 01:28 | XMS_ITS | Encounter Summary ---
Author Organization [facility] Address [address] [place] [address] Care Team Providers Care Used Building Materials Yard Worker Name Role Phone Gloria Red MD Primary Care Provid er Reason for Visit * Reason Onset Date Comments Paperwork request 04/13/2017 Encounter Details Date Type Department Care Team (Late Contact Info) Description 04/13/2017 Telephone [facility] Cancer Center Hematology & Oncology - [facility] [address] [place], [place] [phone] Gayla Tomas MD 111 [facility], [facility] [address] [place] [address] Paperwork request Social History Tobacco Use Types [...] encounter Miscellaneous Notes * Telephone Encounter - Kelvin Hammerie - 04/13/2017 1230 EDT Per request, faxed records to Dr. Partida at [facility] @ [phone]. [employer] will make CD of images for patient to leaf size picker; per Adriane, she will be here on 04/18 for PET Scan and we will arrange leaf size picker that day. documented in this encounter Plan of Treatment Not on file documented as of this encounter Visit Diagnoses Not on filedocumented in this encounter Care Teams Used Building Materials Yard Worker Relationship Specialty Start Date End Date Gloria Red MD [address] [place] [address] [place] [address] PCP - General 04/05/17 09/18/18 documented as of this encounter
--- OUTSIDE RECORDS SUMMARY | 2024-02-24 01:28 | XMS_ITS | Encounter Summary ---
Author Organization [facility] Address [address] [place] [address] Care Team Providers Care Gunite Nozzle Operator Name Role Phone Gloria Red MD Primary Care Provid er Reason for Visit * Reason Onset Date Comments Follow-up 05/03/2017 Encounter Details Date Type Department Care Team ([facility] Contact Info) Description 05/03/2017 Telephone [facility] Cancer Center Hematology & Oncology - [facility] [address] [place] [address] Coral Martin RN [address] [place] [address] Follow-up Social History Tobacco Use Types Packs/Day [...] Telephone Encounter - Coral Martin RN - 05/03/2017 1113 EST Monica's daughter Cass calls today to discuss other medication options for the port placement tomorrow. She reports her mother doesn't do well with sedating medications (Fentanyl and Versed), they give her hallucinations and paranoia, and she has seen online that it could be done with a narcotic as well as local anesthetic. Spoke with Bre in IR who states this would be discussed tomorrow prior to the procedure to determine the best plan for medications for the port placement. Cass is aware of this and will be there with her mother tomorrow for the procedure. documented in this encounter Plan of Treatment Not on file documented as of this encounter Visit Diagnoses Not on filedocumented in this encounter Care Teams Gunite Nozzle Operator Relationship Specialty Start Date End Date Gloria Red MD [address] [place] [address] [place] [address] PCP - General 04/05/17 09/18/18 documented as of this encounter
--- OUTSIDE RECORDS SUMMARY | 2024-02-24 01:28 | XMS_ITS | Encounter Summary ---
Author Organization [facility] Address [address] [place] [address] Care Team Providers Care Senior Media Planner Name Role Phone Gloria Red MD Primary Care Provid er Encounter Details Date Type Department Care Team (Late st Contact Info) Description 05/03/2017 Pre-Procedure Orders Encounter [facility] Interventional Radiology Unit [address] [place] [address] Kevin Flores PA-C 111 [facility] 1 [place] [address] Social History Tobacco Use Types Packs/Day Years [...] on filedocumented in this encounter Care Teams Senior Media Planner Relationship Specialty Start Date End Date Gloria Red MD [address] [place] [address] [place] [address] PCP - General 04/05/17 09/18/18 documented as of this encounter
--- OUTSIDE RECORDS SUMMARY | 2024-02-24 01:28 | XMS_ITS | Encounter Summary ---
Author Organization [facility] Address [address] [place] [address] Care Team Providers Care Sales Analytics Manager Name Role Phone Gloria Red MD Primary Care Provid er Reason for Visit * Reason Onset Date Comments Other 04/14/2017 Encounter Details Date Type Department Care Team ([facility] Contact Info) Description 04/14/2017 Telephone [facility] Cancer Center Hematology & Oncology - [facility] [address] [place], [place] [phone] Gayla Tomas MD 111 [facility], [facility] 2 [place] [address] Other Social History Tobacco Use [...] * Telephone Encounter - Adriane Leblanc - 04/15/2017 1709 EDT Called Monica to double check that she had received port instructions and knew to hold her anticoagulant for 48 hours prior to port placement. Monica verbalizes understanding. She did ask if there was any way her port placement could be rescheduled for the week after next, as she was feeling overwhelmed by all her appointments next week and the travel to appointments in [place] and [facility] are difficult financially. I said this would ask our bilingual sales assistant, but that port appointments are generally hardto come by. I let her know I could refer her to some patient support programs that could help with transportation and financial concerns. Referrals to ACS and Social Work were placed. * Telephone Encounter - Clarence Tomas MD - 04/14/2017 1447 EDT Called Monica to discuss the recommendations from lung [facility] and to touch base regarding second opinion at [facility]. Her daughter will be back over the weekend and Monica can make the trip to [facility] next week any day. We will get the records sent to [facility]. documented in this encounter Plan of Treatment Not on file documented as of this encounter Visit Diagnoses Not on filedocumented in this encounter Care Teams Sales Analytics Manager Relationship Specialty Start Date End Date Gloria Red MD [address] [place] [address] [place] [address] PCP - General 04/05/17 09/18/18 documented as of this encounter
--- OUTSIDE RECORDS SUMMARY | 2024-02-24 01:28 | XMS_ITS | Encounter Summary ---
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) Procedures NM PET CT EYE TO THIGH Gayla Tomas MD [address] [facility], [facility] [address] [place] [address] Referral ID Status Reason Start Date Expiration Date Visits Re quested Visits Authorized [id number] Closed 04/07/2017 1 1 Reason for Visit * Reason Comments New Patient Visit * Follow Up (Routine) - Closed Specialty Diagnoses / Procedures Referred By Contact Referred To Contact Hematology and Oncology Diagnoses Mediastinal mass Left breast mass Omar Kennedy MD [address] [place] [address] [facility] Hem/Onc [address] [place] [address] Referral ID Status Reason Start Date Expiration Date V isits Requested Visits Authorized [id number] Closed Specialty Services Required 03/27/2017 1 1 Encounter Details Date Type Department Care Team (Late st Contact Info) Description 04/05/2017 11:00 EDT Office Visit [facility] Hematology & Oncology - [address] [phone] Unknown, Provider, Gayla Tomas MD [address] [facility], [facility], Level [address] [place] [address] Neuroendocrine carcinoma of thymus (CMS-HCC) (HCC-CMS) (Primary Dx); 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) Social History Tobacco Use Types Packs/Day Years Used Date Smoking Tobacco: Never Smokeless Tobacco: Never Sex and Gender Information Value Date Recorded Sex Assigned at Not on file Gender Identity Not on file Sexual Orientation Not on file documented as of this encounter Last Filed Vital Signs Vital Sign Reading Time Taken Comments Blood Pressure 124/80 04/05/2017 1207 EDT Pulse 96 04/05/2017 1207 EDT Temperature 36.9 ??C (98.5 ??F) 04/05/2017 1207 EDT Respiratory Rate 16 04/05/2017 1207 EDT Oxygen Saturation 96% 04/05/2017 1207 EDT Inhaled Oxygen Concentration - - Weight 116.6 kg (257 lb) 04/05/2017 1207 EDT Height 176.5 cm (5' 9.49) 04/05/2017 1207 EDT Body Mass Index 37.42 04/05/2017 1207 EDT documented in this encounter Functional Status Functional Status Response [...] as of this encounter Progress Notes * Clarence Tomas MD - 04/05/2017 1100 EDT Images from the original note were not included. Oncology New Patient Consult Date of Visit:04/05/2017 Reason for Consultation: Thymic neuroendocrine tumor along with squamous cell cancer of thymus Referring Physician: Gloria Red History of Present Illness: Monica Jaramillo is a 61 y.o. female with PMHx of HTN, Afib on apixaban, FVL (w/o known prior VTE), who was transferred to [facility] from [facility] on 03/18/2017 where she presented with a 3 week history of shortness of breath and was noted to be hypoxic in the ER (94% on 3 L of oxygen by nasal cannula). She had an elevated d-dimer and had a CT PE protocol which did not show any evidence ofpulmonary embolism, however there was a large anterior mediastinal mass (measuring 8.8 x 4.8 x 8.8 cm) and moderately sized left pleural effusion with compressive atelectasis. Other labs were remarkable for hemoglobin of 17.5 g/dL, with a normal white count, INR of 1.1, EKG showing atrial fibrillation with rate of 86. She did not report any chest pain, diaphoresis, orthopnea, PND, fever, night sweats, weight loss, chills, changes in appetite or other GI symptoms at presentation. She was noted to have desaturation during night up to 59%, with initial response to supplemental oxygen via Ventimask, however subsequently she had increasing difficulty to stay awake and the desaturation progressedrequiring nonrebreather mask, and VBG was consistent with acute respiratory acidosis. She was transferred to ICU for further management. She was intubated and had a left- sided pleural tap of 1.6 L offluid, cytology was negative for any malignant cells and flow cytometry did not show any immunohistochemical evidence of clonal population. She was extubated on 03/20/17, however had significant agitation initially felt to be secondary to alcohol withdrawal and was given phenobarbital and started onPrecedex, with subsequent improvement. Mediastinal mass was biopsied on 03/22/17 and preliminary report showed poorly differentiated carcinoma. A CT abdomen and pelvis was obtained showing a left breast mass as well as additional lesions in T12 and L2 vertebral bodies. Oncology was consulted and her case was discussed in breast [facility] and a biopsy was recommended for the left breast mass, which was performed on 03/25/17. Patient remained in the hospital until 03/27/17 due to ongoing, albeit decreasing drainage from the chest tube, she tolerated chest tube removal and was discharged subsequently. Today, she presents to medical oncology to discuss further management of her newly diagnosed mediastinal tumor, which on final pathology was noted to be thymic carcinoma with neuroendocrine features along with some features of squamous cell thymic carcinoma. The breast biopsy came back as benign. Vertebral lesions have not been biopsied. Monica is feeling better since her discharge and has not reported any breathing issues at present. She is, however, very worried about the diagnosis and prognosis of her disease. Gynecological history: Menarche at age 15, number of pregnancies 2, number of deliveries 2, age at first childbirth 25 years, date of last menstrual period June 2012. She has never taken any fertility medications, however has taken contraceptive pills for about 2 years. She has not received hormone replacement therapy. Patient Active Problem List Diagnosis Date Noted ??? Lung mass 03/19/2017 Priority: Medium ??? SOB (shortness of breath) 03/18/2017 Priority: Medium PMH PSH Obesity FVL w/o known h/o DVT or PE A fib on anticoagulation HTN Anxiety C section in 1980 and 1982 Incarcerated hernia 2004 Ruptured appendix requiring appendectomy 2001 SOCIAL HISTORY FAMILY HISTORY Social History Substance Use Topics ??? Smoking status: Never Smoker ??? Smokeless tobacco: Never Used ??? Alcohol use Not on file Monica was born in [facility], had high school and some college education. 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 She is and presents to clinic today with her and her daughter (her daughter is a lab pack chemist). Grandchildren ages 11 and 9? Denies any history of malignancy in siblings, children, paternal aunts/uncles/grandparents, her mother had colon cancer at age 80 and at age 81, and was . She does not know much about medical history of her maternal grandparents/aunts/uncles. ALLERGIES Allergies Allergen Reactions ??? Penicillins Hives Current Outpatient Prescriptions Medication Sig Dispense Refill ??? acetaminophen (TYLENOL) 500 mg tablet Take 2 Tabs by mouth every 6 hours as needed for Pain. ??? apixaban (ELIQUIS) 5 mg tablet Take 5 mg by mouth 2 times daily. ??? DILTiazem (TIAZAC) 240 mg SR capsule Take 240 mg by mouth daily. ??? docusate sodium (COLACE) 100 mg capsule Take 2 Caps by mouth 2 times daily as needed for Constipation. (Patient not taking: Reported on 04/05/2017) ??? metoprolol XL (TOPROL-XL) 200 mg tablet Take 200 mg by mouth daily. ??? Multivitamins with Minerals tablet tablet Take 1 Tab by mouth daily. ??? oxyCODONE (ROXICODONE) 5 mg immediate release tablet Take 1-2 Tabs by mouth every 4 hours as needed for Pain. Daily Max: 60 mg (Patient not taking: Reported on 04/05/2017) 10 Tab 0 ??? polyethylene glycol 3350 (MIRALAX) 17 gram packet Take 17 g by mouth daily. (Patient not taking: Reported on 04/05/2017) No current facility-administered medications for this visit. REVIEW OF SYSTEMS: A complete 10 point review of systems was performed and is otherwise negative. Physical Exam: BP 124/80 Pulse 96 Temp 36.9 ??C (98.5 ??F) (Tympanic) Resp 16 Ht 176.5 cm (69.49) Wt (!) 116.6 kg (257 lb) SpO2 96% BMI 37.42 kg/m2 General: Nontoxic, appears distressed, became tearful during conversation. Eyes: Sclerae anicteric, pupils equally reactive to light. Extraocular movements grossly intact. ENT/neck: Oral mucosa without lesions. Oropharynx is clear. Neck is supple, without masses or thyromegaly. Chest . Coarse breath sounds bilaterally. Dull to percussion in Rt base. Lt chest tube site is healing well. No active oozing or discharge. Cardiovascular: Regular rate and rhythm, no murmurs, gallops or rubs (currently not irregularly irregular, but has h/o A fib). Abdomen is soft, nontender, nondistended with normal abdominal bowel sounds, no hepatosplenomegaly,no palpable masses. Extremities: No clubbing, cyanosis but has trace b/l LE edema. Heme/lymph: No cervical, supraclavicular, axillary or inguinal adenopathy. Neuro: Oriented and appropriate. CN 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 intact, non focal. Labs: Lab Results Component Value Date WBC 5.42 03/25/2017 HGB 14.4 03/25/2017 HGB 14.3 03/24/2017 HGB 14.5 03/23/2017 HCT 43.9 03/25/2017 MCV 98 03/25/2017 RDWCV 12.7 03/25/2017 PLT 195 03/25/2017 Lab Results Component Value Date NA 138 03/25/2017 K 4.5 03/25/2017 CL 94 (L) 03/25/2017 CO2 35 (H) 03/25/2017 BUN 13 03/21/2017 CREATININE 0.67 03/21/2017 CALCGFR 97 03/21/2017 Lab Results Component Value Date PROTIME 12.6 03/25/2017 PROTIME 13.8 (H) 03/19/2017 INR 1.1 03/25/2017 INR 1.2 (H) 03/19/2017 PTT 29 03/25/2017 CT chest with contrast 03/18/17, secondary read: Impression: ?? 1. ??Suspicious lobulated anterior mediastinal calcified soft tissue ?? mass measuring 8.8 x 4.8 x 8.8 cm suspicious for malignancy. ?? Differential considerations include thymoma, thymic carcinoma, ?? lymphoma, or less likely germ cell tumor. ?? 2. ??Suspicious mediastinal lymphadenopathy for metastatic disease. ?? 3. ??Large left and small right pleural effusion with multifocal ?? enhancing left pleural and pericardial nodularity suspicious for ?? metastatic disease. CT abdomen and pelvis with contrast 03/23/17: IMPRESSION: ?? 1. A 2.5 cm mass in the left breast is highly concerning for ?? malignancy. Recommend diagnostic workup with mammogram and ?? ultrasound. ?? 2. Soft tissue nodularity in the paracardial fat better imaged on ?? recent chest CT is concerning for metastatic disease. ?? 3. At least 2 suspicious osseous lesions are identified, one in the ?? T12 vertebral body and the other in the L2 vertebral body, both ?? concerning for osseous metastases. ?? 4. Ill-defined areas of hypoattenuation in the liver are ?? nonspecific. If the presence of hepatic metastases would alter ?? management, this could be further evaluated with contrast-enhanced ?? MRI. ?? 5. Decreased size of left pleural effusion following left pleural ?? drain placement. There is a small right pleural effusion. ?? 5. Multiple bowel containing ventral hernias without evidence of ?? bowel obstruction. I have personally reviewed above imaging, as well as these have been reviewed in breast [facility]. Pathology: Final Pathologic Diagnosis, mediastinal mass, 03/22/17: MEDIASTINUM, MASS, BIOPSY: - Thymic epithelial neoplasm with neuroendocrine features. See comment. Comment: Histologic sections show a neoplastic proliferation of predominantly monomorphic epithelial cells with focal shobha formation, scattered enlarged atypical cells, large areas of necrosis, and rare mitotic figures. Rare intermixed lymphocytes are present. Based on the immunoprofile, the epithelial cells are most likely of thymic origin. ??The primary two diagnostic considerations include a thymic [...] upon request. Final classification is deferred to resection. ??Senior Linux Engineer slides of this case were reviewed at the intradepartmental consultation conference. Immunoperoxidase stains were performed on this case to further characterize the lesion. ANTIBODY(CLONE)(BLOCK):RESULT Ckit (CD117) (EP10, [employer]) (2): Positive CD5 (Rabbit Monoclonal, clone SP19, [employer]) (2): Positive PAX-8 (MRQ-50, [place]) (2): Positive P40 (BC28, [place]) (2): Positive Keratin AE1-AE3 (AE1-AE3, [employer]) (2): Positive Chromogranin (LK2H10, [place]) (2): Positive Synaptophysin (27G12, [employer]) (2): Positive MIB-1 (DAKO) (MIB-1, [employer]) (2): 5-15% nuclei positive CK7 (RN7, [employer]) (2): Negative CK20 (Ks20.8, [employer]) (2): Negative TTF-1 (8G7G3/1, [place]) (2): Negative GATA3 (L50-823, [place]) (2): Negative CD34 (QBEnd/10, [employer]) (2): Negative Final Pathologic Diagnosis breast biopsy 03/25/17: BREAST, LEFT, 9 O'CLOCK, 1 CM FROM NIPPLE, ULTRASOUND GUIDED CORE BIOPSY: - ?Benign breast tissue with nodular fibrocystic changes including sclerosing adenosis and cyst formation. ??See comment. Comment: In addition to sclerosing adenosis and cyst formation there are focal fibroadenomatoid changes. The ductal structures show retained expression of heavy chain myosin and P63, confirming their benign nature. Assessment: Monica Jaramillo is a 61 y.o. 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 Her staging w/u is concerning for metastatic disease (given T12 and L2 lesion, though these have not been biopsied yet). Given the extent of disease and involvement of pericardium, it would be less likely that she would be acandidate for definitive treatment, if even if these lesions were unrelated, however, we will obtain a PET scan to delineate these further. I have presented her case in breast [facility] d/t the Lt breast mass that was noted on CT abdomen pelvis,and the consensus was to biopsy this mass, since if this was a breast ca, especially a hormone receptor positive ca, then bone lesions would need to be assessed further. This has come back as benign breast tissue. Her case will be discussed in lung [facility] on 04/11/2017. If the pathology is felt to be predominantly high-grade neuroendocrine tumor (as suggested by the necrosis in the pathologyreport), I am more inclined to give her cisplatin and etoposide combination +/-octreotide/Lanreotide, however if thymic carcinoma component is predominant, carboplatin and Taxol is the recommended regimen as per NCCN guidelines. I have also discussed her case with Dr. Delong who recommended discussing with Dr. Benjamin at [facility] cancer [facility] and I have sent him an email regarding this. I will send the patient for a second opinion to [facility]. I have discussed this with Monica and her family. Linda is a bit reluctant to obtain a second opinion, however I have explained to her that her tumor is relatively rare and currently we do not have any clinical trials open for this at [facility] and she might be able to find a good clinical trial at [facility]. Even if she is not eligible for a clinical trial, I would recommend obtaining a second opinion at [facility]. Her daughterand are in agreement, and Monica will think about it and let me know. She would also like toknow if there are other agents besides chemotherapy that can be used in her tumor type. I have explained to her that we could do Foundation 1 testing along with PDL 1 testing to assess for actionablemutations and role of immunotherapy respectively, however these tests take time and we will likely need to start with chemotherapy soon. There have been case reports of responses to immunotherapy in thymoma and thymic carcinoma (also in recurrent setting post chemotherapy; Pembrolizumab in patientswith recurrent thymic carcinoma: Results of a phase II study. Lino Beckman, Ama Weiner, Sierra Rodriguez, Shanel Osei, uMsa Constantino, Jennifer Cerrato) We talked about the common side effects of chemotherapy (hair loss, fatigue, nausea vomiting, diarrhea, cytopenias: Decreased white cell count which can make people more prone to getting infections, although Neulasta can be used to support the white cells in next cycles if this happens, anemia and potential need for blood transfusions, thrombocytopenia and risk of bleeding/bruising, potential need for platelet transfusion). Patient should call us if there is fever of 100.4F for an hour or 101F at any point in time, and we discussed that neutropenic fever is an emergency. We also discussed that normally we place a chest port for chemotherapy. This makes the access for chemotherapy easier, and some chemotherapies can damage the veins and that can be prevented through central access, like a port. Port can be used for hydration, IV medications, blood draws etc. Patientcan also apply Emla cream half hour prior to the port access so that there is no significant pain. P ort is placed by interventional radiology. She will need to be NPO after midnight for the procedure. They give a light sedation and then give local anesthesia, it is a small incision and after the port is placed, it is covered by the skin. There is a small amount of dye that is given during the procedure. It is sore for about a day or so, but heals afterwards and is barely noticeable as a bump under the skin. There is a risk of infection of the port, which is very low, since the access and de access is done in a sterile fashion, however, if the port gets infected, sometimes it can lead to sepsis and might need to be removed in that situation. Plan: 1. NM PET scan to complete staging. IR chest port placement. She will need to hold Eliquis at leastfor 24 hrs prior to procedure. 2. We will also obtain 24 hour urine 5-hydroxyindoleacetic acid and serum chromogranin A levels. 3. We will discuss her case in lung tumor board. If her predominant disease is thymic carcinoma, carboplatin and Taxol would be my preferred combination to start with, however if aggressive neuroendocrine tumor is predominant cisplatin and etoposide +/- Lanreotide/Octreotide versus other neuroendocrine regimens would be preferred. If her spine lesions are PET negative (and preferably pathologically negative), surgery versus definitive XRT could be discussed, however given the extent of disease,it was felt less likely to be an option at least from current imaging. 4. Monica has agreed to go to [facility] for a second opinion which we will arrange. Our office will send all her records to [facility]. 5. I will follow-up on Foundation 1 testing and PDL 1 testing, she will come back to clinic in 2-3 weeks for follow-up. MD Tj. 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 Comment: (Note) . ADDITIONAL INFORMATION The testing method is a homogeneous time-resolved immunofluorescent assay. . Analyte Specific Reagent: This test was developed and its performance characteristics determined by [facility]. It has not been cleared or approved by the U.S. Food and Drug Administration. ? Values obtained with different assay methods or kits may be different and cannot be used interchangeably. ? Test results cannot be interpreted as absolute evidence for the presence or absence of malignant disease. Performed by: [facility]: [address], [place] [address], Lab Dir: Alex Cameron II, M.D., Ph.D. Blood specimen (specimen) BLOOD SPECIMEN / Unknown 05/06/2017 13:34 EST 05/06/2017 14:00 EST Gayla Tomas MD CHEMISTRY & BLOOD GA S ORDERABLES Performing Organization Address City/State/[facility] Co de Phone Number [facility] [address] [place] [address] * NM PET CT EYE TO THIGH (04/18/2017 14:03 EST) Anatomical Region Laterality Modality Other 04/18/2017 14:0 3 EST 04/18/2017 16:58 EST Narrative 04/18/2017 16:[address] EYE TO THIGH ??04/18/2017 2:03 PM Signs and Symptoms/Comments: ?? C7A.8-Other malignant neuroendocrine tumors (HCC)-ICD-10 R00-Rkcsxkpso neoplasm of thymus (HCC)-ICD-10; thymic squamous cell ca, thymic neuroendocrine tumor, vertebral body lesions concerning for mets . Comparison: CT of the abdomen and pelvis from 03/23/2017, CT of the chest from 03/18/2017, ultrasound guided breast biopsy from 03/25/2017 Technique: Approximately 91 minutes following the IV injection of 15 mCi of [id number]-wplgrniymqtwtherwq, 3D TOF PET imaging was obtained from the head to the upper thighs with attenuation correction using a [employer] dedicated closed ring PET / CT system. ??The blood glucose level prior to injection was 108 mg/dl. ??The injection site was in the right antecubital [...] and agree with the findings. Procedure Note Ady Nolasco MD - 04/18/[address] EYE TO THIGH 04/18/2017 2:03 PM Signs and Symptoms/Comments: C7A.8-Other malignant neuroendocrine tumors (HCC)-ICD-10 W99-Rlkjhtruy neoplasm of thymus (HCC)-ICD-10; thymic squamous cell ca, thymic neuroendocrine tumor, vertebral body lesions concerning for mets . Comparison: CT of the abdomen and pelvis from 03/23/2017, CT of the chest from 03/18/2017, ultrasound guided breast biopsy from 03/25/2017 Technique: Approximately 91 minutes following the IV injection of 15 mCi of U66-cmozxixuuglerkmyde, 3D TOF PET imaging was obtained from the head to the upper thighs with attenuation correction using a [employer] dedicated closed ring PET / CT system. The blood glucose level prior to injection was 108 mg/dl. The injection site was in the right antecubital [...] above interpretation and agree with the findings. Gayla Tomas MD [facility] NM ORDERABLES * (ABNORMAL) POCT GLUCOSE (04/18/2017 11:44 EST) Glucose, POC 108(A) 70 - 100 mg/dL Blood specimen (specimen) 04/18/2017 11:44 EST Gayla Tomas MD POINT OF CARE TEST O RDERABLES documented in this encounter Visit Diagnoses Diagnosis Neuroendocrine carcinoma of thymus (HCC-CMS)- Primary Primary squamous cell carcinoma of thymus (HCC-CMS) documented in this encounter Care Teams Heel Caser Relationship Specialty Start Date End Date Gloria Red MD [address] [place] [address] [place] [address] PCP - General 04/05/17 09/18/18 documented as of this encounter
--- OUTSIDE RECORDS SUMMARY | 2024-02-24 01:28 | XMS_ITS | Encounter Summary ---
Author Organization [facility] Address [address] [place] [address] Care Team Providers Care Quilt Sewer Name Role Phone Gloria Red MD Primary Care Provid er Reason for Referral * Referral (Routine) - Closed Specialty Diagnoses / Procedures Referred By Franklyn del rio Referred To Contact Diagnoses Neuroendocrine carcinoma of thymus (HCC-CMS) Gayla Tomas MD [address] [phone] Referral ID Status Reason Start Date Expiration Date V isits Requested Visits Authorized [id number] Closed Specialty Services Required 05/10/2017 1 1 Question Answer Reason for Request: Monica would like to receive treatment closer to home, she will be getting carboplatin AUC 6 and paclitaxel 200mg/m2 Q 3 week schedule Scheduling Comments (optional ? describe specific scheduling needs if applicable): please schedule sarah so she can get treatment started Reason for Visit * Reason Onset Date Comments Referral Request 05/09/2017 Encounter Details Date Type Department Care Team ([facility] Contact Info) Description 05/09/2017 Telephone [facility] Cancer Center Hematology & Oncology - [facility] [address] [place] [address] Gayla Tomas MD [address] [phone] Referral Request Social History Tobacco Use Types [...] Telephone Encounter - Coral Martin RN - 05/10/2017 0914 EST Monica would like a referral to the [facility] in [facility] to have treatment closer to home. She would also like to have her port placed at [facility] which she thinks Gina is working on scheduling. Of the several chemo options she was given by Dr. Tomas and the doctors she saw at [facility] she has chosen to go with carboplatin AUC 6/paclitaxel 200mg/m2 every 3 weeks. Spoke with Brandon at [facility] to discuss the referral for Monica and she will fax me the referral form, she gave me their return fax number as [phone]. Referral form was faxed along with pertinent medical records, Melonie in [employer] library will mail a CDwith imaging. Gina was e-mailed to coordinate port at [facility]. * Telephone Encounter - Sarah Bowen - 05/10/2017 0933 EST Patient is calling again to speak to Gina in regards to her referral to [facility].She spoke to them, and they are unable to help her unless she has a referral. Patient would like a call back from Gina. * Telephone Encounter - Sarah Bowen - 05/09/2017 1124 EST Patient calling to speak with Gina in regards to referral to [facility]. She states that they did not feel she needed to go there, but she would like a referral. Patient is anxious for call back from Gina. documented in this encounter Plan of Treatment Scheduled Referrals Name Type Priority Associated Diagnoses Orde r Schedule AMB CONS/FOLLOW UP ONCOLOGY Outpatient Referral Routine Neuroendocrine carcinoma of thymus (CMS-HCC) (HCC-CMS) Ordered: 05/10/2017 documented as of this encounter Visit Diagnoses Diagnosis Lung mass- Primary Swelling, mass, or lump in chest Neuroendocrine carcinoma of thymus (HCC-CMS) documented in this encounter Care Teams Quilt Sewer Relationship Specialty Start Date End Date Gloria Red MD [address] [place] [address] [place] [address] PCP - General 04/05/17 09/18/18 documented as of this encounter
--- OUTSIDE RECORDS SUMMARY | 2024-02-24 01:28 | XMS_ITS | Encounter Summary ---
Author Organization [facility] Address [address] [place] [address] Care Team Providers Care Fly Maker Name Role Phone Unknown, Provider Primary Care Provider [phone] Reason for Visit * Reason Onset Date Comments Appointment Related 03/29/2017 Encounter Details Date Type Department Care Team ([facility] st Contact Info) Description 03/29/2017 Telephone [facility] Cancer Center Hematology & Oncology - [facility] [address] [place], [place] [address] Gayla Tomas MD [address] [facility], [address] [place] [address] Appointment Related Social History Tobacco [...] a physical, menta l, or emotional condition, do you have difficulty doing errands alone such as visiting a doctor's office or shopping? (15 years old or older) No 03/18/2017 Cognitive Status Response Date of Assessm ent Because of a physical, menta l, or emotional condition, do you have serious difficulty concentrating, remembering, or making decisions? (5 years old or older) No 03/18/2017 documented as of this encounter Miscellaneous Notes * Telephone Encounter - Barbara Haley - 03/29/2017 1208 EDT 03/29@12:08Called and spoke with patient to schedule her to come in to see Dr. Tomas on 04/05 at 11:00. Patient knows to come in at 10:45 and check in at the Hematology Oncology on Level [address] of the [facility]. That she is located across from the garage entrance on level 1(orange). Patient is agreeable to plan. documented in this encounter Plan of Treatment Not on file documented as of this encounter Visit Diagnoses Not on filedocumented in this encounter Care Teams Fly Maker Relationship Specialty Start Date End Date Unknown, Provider, PCP - General 03/18/17 04/04/17 documented as of this encounter
--- OUTSIDE RECORDS SUMMARY | 2024-02-24 01:28 | XMS_ITS | Encounter Summary ---
Author Organization [facility] Address [address] [place] [address] Care Team Providers Care Lines Tender Name Role Phone Gloria Red MD Primary Care Provid er Reason for Visit * Reason Onset Date Comments Procedure 05/03/2017 Port placement 1 07.04.16 URI 05/03/2017 Cough 05/03/2017 Follow-up 05/03/2017 Encounter Details Date Type Department Care Team (Late st Contact Info) Description 05/03/2017 Telephone [facility] Cancer Center Hematology & Oncology - [facility] [address] [place] [address] Gayla Tomas MD 111 [facility], [address] [place] [address] Procedure (Port placement 05.04.17); URI; Cough; Follow-up Social History Tobacco Use Types Packs/Day [...] Miscellaneous Notes * Telephone Encounter - Sun Cordoba - 05/03/2017 1349 EST Patient called back and she no longer needs Adriane to call her back, she found the answer. * Telephone Encounter - Angelia Cutler - 05/03/2017 1217 EST Reason for Call: Procedure (Port placement 11.22.17); URI; and Cough Summary/Symptoms: Per pt, requesting a call back from Adriane today to discuss whether the port placement for tomorrow 11.22.17 should be rescheduled due to a chest cold and cough. Per pt, had an appt with PCP today but, it was cancelled due to that the PCP was sick. Angelia Cutler 05/03/2017 12:17 documented in this encounter Plan of Treatment Not on file documented as of this encounter Visit Diagnoses Not on filedocumented in this encounter Care Teams Lines Tender Relationship Specialty Start Date End Date Gloria Red MD [address] [place] [address] [place] [address] PCP - General 04/05/17 09/18/18 documented as of this encounter
--- OUTSIDE RECORDS SUMMARY | 2024-02-24 01:28 | XMS_ITS | Encounter Summary ---
Author Organization [facility] Address [address] [place] [address] Care Team Providers Care Office Machine Servicer Apprentice Name Role Phone Gloria Red MD Primary Care Provid er Reason for Visit * Reason Onset Date Comments Coordination Of Care 04/13/2017 Encounter Details Date Type Department Care Team (Late st Contact Info) Description 04/13/2017 Telephone [facility] Cancer Center Hematology & Oncology - [facility] [address] [place], [place] [id number] Adriane Reyes, SEBASTIAN Coordination Of Care Social History Tobacco Use Types Packs/Day [...] * Telephone Encounter - Adriane Leblanc - 04/14/2017 1500 EDT Called Monica to let her know we have disc of imaging for her to bring to [facility]. Called to seeif she could pick this up on Tuesday when here for labs and PET scan. Monica states she will actuallybe going to [facility] for PET scan/labs, so we will mail her the imaging disc. Monica is in agreement with this plan. documented in this encounter Plan of Treatment Not on file documented as of this encounter Visit Diagnoses Not on filedocumented in this encounter Care Teams Office Machine Servicer Apprentice Relationship Specialty Start Date End Date Gloria Red MD [address] [place] [address] [place] [address] PCP - General 04/05/17 09/18/18 documented as of this encounter
--- OUTSIDE RECORDS SUMMARY | 2024-02-24 01:28 | XMS_ITS | Encounter Summary ---
Author Organization [facility] Address [address] [place] [address] Care Team Providers Care Divorce Lawyer Name Role Phone Gloria Red MD Primary Care Provid er Reason for Referral * Radiology Services (Routine) - Closed Specialty Diagnoses / Procedures Referred By Franklyn del rio Referred To Contact Diagnoses Thymic carcinoma (HCC-CMS) Procedures IR CHEST PORT Gayla Tomas MD [address] [place] [phone] Referral ID Status Reason Start Date Expiration Date Visits Re quested Visits Authorized [id number] Closed 05/06/2017 1 1 Reason for Visit * Reason Comments Follow-up Encounter Details Date Type Department Care Team (Late st Contact Info) Description 05/06/2017 14:00 EST Office Visit [facility] Hematology & Oncology - [address] [phone] Unknown, Provider, Vashti Montes MD [address] [place] [phone] Gayla Tomas MD [address] [place] [address] [address] [place] [address] Thymic carcinoma (CMS-HCC) (HCC-CMS) (Primary Dx) Discharge Disposition: Auto Discharge Social History Tobacco [...] Body Mass Index 37.95 05/06/2017 1404 EST documented in this encounter Functional Status Functional [...] neoplasm of thymus-C37[ICD-10-CM] documented in this encounter Discharge Disposition Disposition Code Departure Means Destination Auto Discharge documented in this encounter Progress Notes * Clarence Tomas MD - 05/06/2017 1400 EST Oncology follow up visit Date of Visit:05/06/2017 Reason for Consultation: 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 female with PMHx of HTN, Afib on apixaban, FVL (w/o known prior VTE), who was transferred to [facility] from [facility] on 03/18/2017 where she presented with a [...] management. She was intubated and had a left-sided pleural tap of 1.6 L offluid, cytology was negative for any malignant cells and flow cytometry did not show any immunohisto chemical evidence of clonal population. She was extubated [...] and her case was discussed in [facility] and a biopsy was recommended for the [...] the diagnosis and prognosis of her disease. History of Present Illness: Monica returns for follow-up after her appointment at [facility] [place]. She is feeling better and hopeful about the treatment, though she understands that the therapy is not curative. We also discussed that the Foundation One testing did not show any targetable mutation. 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 At [facility], she was evaluated by Dr. Roddy Vega (medical oncology) and Dr. Daniel Connor (radiation oncology), and it was felt that her tumor was not amenable to surgery or definitive radiation therapy. There were multiple chemotherapeutic regimens which were considered for therapy including cisplatin and etoposide, carboplatin and Taxol, CAP, ADOC. He mentioned that Adriamycin, Cytoxan, cisplatinand vincristine has about the highest response rate of 75%, however that data is from a fairly small study. Since she wanted to be aggressive, he recommended Adriamycin containing regimen. He also explained that immunotherapy side effects are more common in thymomas as opposed to primary carcinomas. He agreed with pursuing Foundation 1 testing, however unfortunately there is not any molecular targeted as reported above. He further explained that this is not a curative tumor and we hope to shrink it enough to improve her survival and quality of life. 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 It was positive for a P 40, PAX 8, CD 117, CD5, CK 7, synaptophysin, chromogranin and negative for CK 20, TTF-1, RUTH 3, CD34, Ki-67 which was performedat [facility] was also reviewed at [facility] and was reported to be focally up to 30%. They also mentioned that while diffuse synaptophysin and chromogranin expression is unusual for conventional thymic carcinoma, the overall histomorphology and immunophenotyping is most in keeping with thymic squamous carcinoma. The extent of PAX 8 and CD 117 staining would be unusual for nut carcinoma. She had multiple questions regarding the choice of chemotherapy which were answered, as below. Gynecological history: Menarche at age 15, number [...] and her daughter (her daughter is a phlebotomy lab assistant). Grandchildren ages 11 and 9? Denies any history of malignancy in siblings, children, paternal aunts/uncles/grandparents, her mother had colon cancer at age 80 and at age 81, and was . She does not know much about medical history of her maternal grandparents/aunts/uncles. ALLERGIES Allergies Allergen Reactions ??? Penicillins Hives Current Outpatient Prescriptions: acetaminophen (TYLENOL) 500 mg tablet apixaban (ELIQUIS) 5 mg tablet DILTiazem (TIAZAC) 240 mg SR capsule docusate sodium (COLACE) 100 mg capsule metoprolol XL (TOPROL-XL) 200 mg tablet Multivitamins with Minerals tablet tablet oxyCODONE (ROXICODONE) 5 mg immediate release tablet polyethylene glycol 3350 (MIRALAX) 17 gram packet No current facility-administered medications for this visit. REVIEW OF SYSTEMS: Mild anxiety, however able to manage. Also reports some swelling. Has atrial fibrillation, controlled on medications.Pertinent positives and negatives discussed above. The rest of the 10 point reviewof systems as filled out on symptom report form is unremarkable. Physical Exam: BP (!) 143/73 Pulse 85 Temp 37.1 ??C (98.8 ??F) (Tympanic) Resp 16 Ht 176.5 cm (69.49) Wt (!) 118.2 kg (260 lb 9.6 oz) SpO2 97% BMI 37.95 kg/m2 General: Nontoxic, appears relaxed compared to her last visit. Eyes: Sclerae anicteric, pupils equally reactive to light. Extraocular movements grossly intact. ENT/neck: Oral mucosa without lesions. Oropharynx is clear. Neck is supple, without masses or thyromegaly. Chest . Coarse breath sounds bilaterally with some decrease in Rt base. Cardiovascular: Regular rate and rhythm, no murmurs, [...] request. Final classification is deferred to resection. ??Rn Plastic Surgery slides of this case were reviewed at the intradepartmental consultation conference. Immunoperoxidase stains were performed on this case to further characterize the lesion. ANTIBODY(CLONE)(BLOCK):RESULT Ckit (CD117) (EP10, Leica) (2): Positive CD5 (Rabbit Monoclonal, clone SP19, Thermo DVS Intelestream) (2): Positive PAX-8 (MRQ-50, Hutchinson) (2): Positive P40 (BC28, Hutchinson) (2): Positive Keratin AE1-AE3 (AE1-AE3, Biocare) (2): Positive Chromogranin (LK2H10, Hutchinson) (2): Positive Synaptophysin (27G12, Leica) (2): Positive MIB-1 (DAKO) (MIB-1, Dako) (2): 5-15% nuclei positive CK7 (RN7, Leica) (2): Negative CK20 (Ks20.8, Leica) (2): Negative TTF-1 (8G7G3/1, Hutchinson) (2): Negative GATA3 (L50-823, Hutchinson) (2): Negative CD34 (QBEnd/10, Leica) (2): Negative [...] myosin and P63, confirming their benign nature. NM PET scan 04/18/17: Impression: ?? 1. Increased metabolic activity within the anterior mediastinal mass ?? as well as pericardial and pleural nodules, consistent with known ?? malignant disease with metastatic spread. The low-level activity of ?? the small to moderate left pleural effusion also likely reflects a ?? component of malignancy. ?? 2. Heterogeneous metabolic activity within the liver which ?? demonstrates an enlarged and heterogeneous appearance may indicate ?? an underlying disease. No discrete foci/mass/metastatic disease ?? identified. ?? 3. No increased metabolic activity within the concerning ?? thoracolumbar spine lesions. I spent a total of 40 minutes in face to face time with this patient today and 30 minutes of that time was spent in counseling and coordination of care as described in the progress note. Assessment: Monica Jaramillo is a 61 y.o. 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 Her staging w/u was concerning for metastatic disease (given T12 and L2 lesion, though these have not been biopsied yet). These lesions were not FDG avid, however, given the extent of disease in her chest, she was not felt to be a surgical candidate. Definitive XRT was also felt not to be feasible given the field of radiation required to cover the disease, however, palliative XRT to a symptomatic site could be consideredif needed. She has been evaluated at [facility], and they agree with above assessment and have recommended systemic therapy. At [facility], she was evaluated by Dr. Roddy Vega (medical oncology) and Dr. Daniel Connor (radiation oncology), and it was felt that her tumor was not amenable to surgery or definitive radiation therapy. There were multiple chemotherapeutic regimens which were considered for therapy including cisplatin and etoposide, carboplatin and Taxol, CAP, ADOC. He mentioned that Adriamycin, Cytoxan, cisplatinand vincristine has about the highest response rate of 75%, however that data is from a fairly small study. Since she wanted to be aggressive, he recommended Adriamycin containing regimen. He also explained that immunotherapy side effects are more common in thymomas as opposed to primary carcinomas. He agreed with pursuing Foundation 1 testing, however unfortunately there is not any molecular targeted as reported above. He further explained that this is not a curative tumor and we hope to shrink it enough to improve her survival and quality of life. 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 It was positive for a P 40, PAX 8, CD 117, CD5, CK 7, synaptophysin, chromogranin and negative for CK 20, TTF-1, RUTH 3, CD34, Ki-67 which was performedat [facility] was also reviewed at [facility] and was reported to be focally up to 30%. They also mentioned that while diffuse synaptophysin and chromogranin expression is unusual for conventional thymic carcinoma, the overall histomorphology and immunophenotyping is most in keeping with thymic squamous carcinoma. The extent of PAX 8 and CD 117 staining would be unusual for nut carcinoma. I would prefer to start with the standard of care which is systemic chemotherapy, as opposed to immunotherapy, however, that could be used if she progresses on systemic chemotherapy. There have been case reports of responses to immunotherapy in thymoma and thymic carcinoma (also in recurrent setting post chemotherapy; Pembrolizumab in patients with recurrent thymic carcinoma: Results of a phase II study. Lino Beckman, Ama Weiner, Sierra Rodriguez, Shanel Osei, Musa Constantino, Jennifer Cerrato) We talked about the [...] discussed that neutropenic fever is an emergency. I also explained to her the schedule of chemotherapy and differences in side effects & risks of multiple regimens (eg renal toxicity from cisplatin containing regimens, cardiac toxicity from anthracyclines, neuropathyand hair loss from taxol etc). We also discussed that normally we place [...] so that there is no significant pain. Port is placed by interventional radiology. She will [...] be removed in that situation. Plan: 1. Monica would like to start with chemotherapy, however, it is a long distance to come here every few weeks. I explained to her that she could get the treatment close by as these regimens involve very common standard chemotherapies which a smaller center might be able to give locally. [facility] and will get an appointment there. If sheis not able to get her chemo scheduled there in a timely manner, we can arrange the first cycle here and then transfer care to them. 2. She would like to get her echo at [facility] (needs prior to starting anthracycline based chemo, in case she decides to to ADOC or other doxorubicin based regimens, not necessary if shewere to get carbo taxol, but she is still thinking about the chemo). I have put in an external referral for echo. She wants the port to be placed at [facility] in [place], and a referral has been placed for that as well. 3. Monica knows to call us if she has any questions. She still wants to follow up with me, however, I am not sure how that would work. She will need to have a primary oncologist at [facility] who would be giving her chemotherapy and managing her care. I am happy to assist if there are any questions or concerns, or if she wants to come back to see me. For now, we have not set up a follow up appointment. MD Tj. documented in this encounter Plan of Treatment Scheduled Orders Name Type Priority Associated Diagnoses Orde r Schedule IR CHEST PORT Imaging Routine Thymic carcinoma (CMS-HCC) (HCC-CMS) Ordered: 05/06/2017 documented as of this encounter Visit Diagnoses Diagnosis Thymic carcinoma (HCC-CMS)- Primary Malignant neoplasm of thymus documented in this encounter Care Teams Divorce Lawyer Relationship Specialty Start Date End Date Gloria Red MD [address] [place] [address] [place] [address] PCP - General 04/05/17 09/18/18 documented as of this encounter
--- OUTSIDE RECORDS SUMMARY | 2024-02-24 01:28 | XMS_ITS | Encounter Summary ---
Author Organization [facility] Address [address] [place] [address] Care Team Providers Care Civil Draftsman Name Role Phone Gloria Red MD Primary Care Provid er Reason for Visit * Reason Onset Date Comments Appointment Related 05/12/2017 Encounter Details Date Type Department Care Team ([facility] Contact Info) Description 05/12/[address] [facility] Cancer Center Hematology & Oncology - [facility] [address], [place] [id number] Gayla Tomas MD [address] [facility], [facility] [address] [place] [address] Appointment Related Social History Tobacco [...] * Telephone Encounter - Adriane Leblanc - 05/12/2017 1309 EST Patient states she has appts set up with [facility]. She will be meeting with a surgeon 05/17, getting her port on 05/24, has an appt with an oncologist on 05/26, andchemo starting the week of May 30. She would just like some reassurance that this is ok, that she isn't waiting too long to get started. Returned call to confirm that Dr. Tomas is ok with this plan. * Telephone Encounter - Ivory Dodd - 05/12/2017 1127 EST Reason for Call: Appointment Related Summary/Symptoms: Pt wants to speak to nurse about her schedule. Please call. Ivory Dodd 05/12/2017 11:27 documented in this encounter Plan of Treatment Not on file documented as of this encounter Visit Diagnoses Not on filedocumented in this encounter Care Teams Civil Draftsman Relationship Specialty Start Date End Date Gloria Red MD [address] [place] [address] [place] [address] PCP - General 04/05/17 09/18/18 documented as of this encounter
--- OUTSIDE RECORDS SUMMARY | 2024-02-24 01:28 | XMS_ITS | Encounter Summary ---
Author Organization [facility] Address [address] [place] [address] Care Team Providers Care Stone Trimmer Name Role Phone Gloria Red MD Primary Care Provid er Encounter Details Date Type Department Care Team (Late st Contact Info) Description 04/19/2017 Documentation Visit [facility] Cancer Center Hematology & Oncology - [facility] [address] [place] [address] Bairon Kruse Social History Tobacco Use Types [...] as of this encounter Progress Notes * Bairon Kruse - 04/19/2017 1445 EST Social Work Assessment: Pt referred to social work by Adriane Reyes RN. Pt voiced financial concerns to her oncology team. Called and spoke with the pt directly. Pt was tearful throughout our conversation explaining how overwhelmed she has been by her diagnosis. She has had to stop work and is hoping upon completion of treatment she can return to work. Discussed the availability of small grants for pt's going through a cancer diagnosis. Offered pt active listening and support throughout conversation. Pt appreciative to learn of what is available, social work to submit requests for financial assistance. Working Diagnosis/Presenting Problem: lung mass Living Arrangements: Pt lives in [place], [place] with her spouse. Discussed availability of [facility] as needed. Functional Status (psychosocial and physical): Pt admits it has been emotional processing her new diagnosis. Overall she feels she is coping fairly well. Financial concerns are her primary concern atthis time. Social Supports: Pt notes having a supportive family and community. 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 She notes having a supportive community. 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 She does not have STD or LTD benefits. She will be out on FMLA. Discussed grants available to pt's undergoing cancertreatment. Pt noted she has accessed the [facility] dwight. Transportation Needs: pt denies transportation concerns. Plan: Social work to submit request for $100 to [employer]. Social work to continue to follow pt offering support and navigation of resources as needed. LILA Villalobos phone [phone] pager #[phone] documented in this encounter Plan of Treatment Not on file documented as of this encounter Visit Diagnoses Not on filedocumented in this encounter Care Teams Stone Trimmer Relationship Specialty Start Date End Date Gloria Red MD [address] [place] [address] [place] [address] PCP - General 04/05/17 09/18/18 documented as of this encounter
--- OUTSIDE RECORDS SUMMARY | 2024-02-24 01:28 | XMS_ITS | Encounter Summary ---
Author Organization [facility] Address [address] [place] [address] Care Team Providers Care Refueling Rampman Name Role Phone Gloria Red MD Primary Care Provid er Reason for Visit * Reason Onset Date Comments Returning Call 04/18/2017 port on y Appointment Related 04/18/2017 Follow-up 04/18/2017 Discuss Test Results 04/18/2017 Tumor Encounter Details Date Type Department Care Team (Late st Contact Info) Description 04/18/2017 Telephone [facility] Cancer Center Hematology & Oncology - [facility] [address] [place], [place] [id number] Gayla Tomas MD [address] [facility], [facility] [address] [place] [phone] Returning Call (port on tuesday); Appointment Related; Follow-up; Discuss Test Results (Tumor ) Social History Tobacco Use Types Packs/Day [...] Telephone Encounter - Coral Martin RN - 04/20/2017 1103 EST Spoke with Monica's daughter Cass to discuss the PET results, appears to be locally advanced only, nodules on liver do not appear to be metastatic disease per report. She is also aware that there is molecular testing still to come back and typically takes 2-3 weeks for results, this will give us more information and be helpful in determining treatment options. * Telephone Encounter - Liz aLke - 04/20/2017 1032 EST Reason for Call: Returning Call (port on tuesday); Appointment Related; Follow-up; and Discuss Test Results (Tumor ) Summary/Symptoms: Angelique would like to speak with Nurse/Dr Tomas regarding test results, please call as soon as possible Liz Lake 04/20/2017 10:32 * Telephone Encounter - Gina Beasley - 04/19/2017 0908 EST CALLED AND LM FOR PT INFORMING HER THAT WE HAVE RESCHEDULED HER PORT PLACEMENT TO 05/04 CHECKING INAT 12 FOR A [address] TOMAS WE HAVE ALSO MOVED HER 04/22 APPT TO 05/06 AT 2PM SO SHE WILL HAVE THE RECOMMENDATIONS FROM HER [place] VISIT. ASKED THAT SHE CALLS BACK WITH ANY QUSETIONS * Telephone Encounter - Gina Beasley - 04/18/2017 1727 EST Called and spoke to pt and let her know that I had rescheduled her this am and that IR has already filled that spot on 04/20 but that I have her scheduled on 04/29. She said she was going to [place] that day and couldn't get it placed that day. Let her know I would talk to Dr. Tomas and that I wouldcall her back with a plan. Pt agreed to plan * Telephone Encounter - Sun Cordoba - 04/18/2017 1636 EST Patient checked her Voicemail and found out who was trying to contact her and that it was not Gina that called. She is still planning on coming in on despite that she originally called to reschedule, she does not want to do that Please call the patient if there is any confusion * Telephone Encounter - Liz Lake - 04/18/2017 1629 EST Reason for Call: Returning Call (port on tuesday) and Appointment Related Summary/Symptoms: Please call patient, would like to keep her 11.8.17 appt for her port Liz Lake 04/18/2017 16:29 documented in this encounter Plan of Treatment Not on file documented as of this encounter Visit Diagnoses Not on filedocumented in this encounter Care Teams Refueling Rampman Relationship Specialty Start Date End Date Gloria Red MD [address] [place] [address] [place] [address] PCP - General 04/05/17 09/18/18 documented as of this encounter
--- OUTSIDE RECORDS SUMMARY | 2024-02-24 01:29 | XMS_ITS | Encounter Summary ---
Author Organization [facility] Address [address] [place] [address] Care Team Providers Care Jamb Cutter Name Role Phone Unknown, Provider Primary Care Provider [phone] Reason for Referral * Follow Up (Routine) - Closed Specialty Diagnoses / Procedures Referred By Contact Referred To Contact Hematology and Oncology Diagnoses Mediastinal mass Left breast mass Omar Kennedy MD [address] [place] [address] [facility] Ep2 Hem/Onc [address] [place] [address] Referral ID Status Reason Start Date Expiration Date V isits Requested Visits Authorized [id number] Closed Specialty Services Required 03/27/2017 1 1 Question Answer Reason for Request: s/p Breast mass and mediastinal mass Expected Discharge Date (Inpatient Only): 03/25/2017 Encounter Details Date Type Department Care Team (Late st Contact Info) Description 03/19/2017 1:48 EDT - 03/27/2017 13:05 EDT Hospital Encounter [facility] Hematology & Oncology Unit [address] [place], [place] [id number] Ariel Perez MD [address] [phone] Shanel Boyle MD [address] [phone] SOB (shortness of breath) (Primary Dx); Lung mass; Pleural effusion; Acute respiratory failure with hypoxia and hypercapnia (CMS-HCC) (HCC-CMS); Mediastinal mass; Left breast mass; Metastatic carcinoma (CMS-HCC) (HCC-CMS) Discharge Disposition: Home or Self Care Social History Tobacco Use Types Packs/Day Years Used Date Smoking Tobacco: Never Smokeless Tobacco: Never Sex and Gender Information Value Date Recorded Sex Assigned at Not on file Gender Identity Not on file Sexual Orientation Not on file documented as of this encounter Last Filed Vital Signs Vital Sign Reading Time Taken Comments Blood Pressure 108/66 03/27/2017 1010 EDT Pulse 88 03/27/2017 1010 EDT Temperature 37.2 ??C (99 ??F) 03/27/2017 1010 EDT Respiratory Rate 20 03/27/2017 1010 EDT Oxygen Saturation 95% 03/27/2017 1010 EDT Inhaled Oxygen Concentration - - Weight 126.4 kg (278 lb 10.6 oz) 03/18/2017 210 EDT Height 176.5 cm (5' 9.5) 03/18/2017 210 EDT Body Mass Index 40.56 03/18/2017 2105 EDT documented in this encounter Functional Status [...] No 03/18/2017 documented as of this encounter Discharge Diagnoses Diagnosis C7B.8 Other secondary neuroendocrine tumors-C7B.8[ICD-10-CM] J96.02 Acute respiratory failure with hypercapnia-J96.02[ICD-10-CM] J96.01 Acute respiratory failure with hypoxia-J96.01[ICD-10-CM] F10.231 Alcohol dependence with withdrawal delirium-F10.231[ICD-10-CM] J90 Pleural effusion, not elsewhere classified-J90[ICD-10-CM] D68.51 Activated protein C resistance-D68.51[ICD-10-CM] E66.2 Morbid (severe) obesity with alveolar hypoventilation-E66.2[ICD-10-CM] E87.1 HYPO-OSMOLALITY AND HYPONATREMIA[ICD-10-CM] I48.2 Chronic atrial fibrillation-I48.2[ICD-10-CM] Z68.41 Body mass index (BMI) 40.0-44.9, adult-Z68.41[ICD-10-CM] J98.11 Atelectasis-J98.11[ICD-10-CM] R22.2 Localized swelling, mass and lump, trunk-R22.2[ICD-10-CM] Z79.01 intermediate designer (current) use of anticoagulants-Z79.01[ICD-10-CM] R41.0 Disorientation, unspecified-R41.0[ICD-10-CM] G47.33 Obstructive sleep apnea (adult) (pediatric)-G47.33[ICD-10-CM] F41.9 Anxiety disorder, unspecified-F41.9[ICD-10-CM] N63.20 Unspecified lump in the left breast, unspecified quadrant-N63.20[ICD-10-CM] documented in this encounter Discharge Summaries * Shanel Boyle MD - 03/27/2017 1305 EDT Medicine Discharge Summary Primary Care Provider: Doctor Unknown Attending Physician: Shanel Boyle MD Admit Date: 03/19/2017 Discharge Date: 03/27/2017 Disposition: Home or self care Reason for Admission: SOB Principal/Final Diagnosis: SOB (shortness of breath) Additional Problems Managed in the Hospital Active Hospital Problems Diagnosis Date Noted ??? *SOB (shortness of breath) 03/18/2017 ??? Lung mass 03/19/2017 Resolved Hospital Problems Diagnosis Date Noted Date Resolved No resolved problems to display. Principal Procedure: Pigtail catheter placement for left pleural effusion. Secondary Procedures: Mediastinal mass biopsy, Left breast mass biopsy Hospital Course: Brayan Jaramillo is a 61 year old female with history including atrial fibrillation on apixaban, factor V Leiden, who is a transfer from [facility]. Patient presented there today with 3 weeks of shortness of breath. At the [facility] ED she was satting 94% on nasal cannula 3 L. She had an elevated d-dimer at 1.09 with there upper limit of normal being 0.5, and so CT PE protocol was obtained. Imaging study revealed large anterior mediastinal mass and moderately sized left pleural effusion with compressive atelectasis. There she had hemoglobin 17.5, white blood cells 5.4, sodium 135, potassium 4.1. INR 1.1. ECG there showed A. fib with rate of 86. She did receive Ativan 0.5 mg IV ??1 at OSH. Initial labs here showed normal sodium and potassium with elevated CO2 at 36. CBC revealed hemoglobin 16, no leukocytosis, normal platelets. On initial interview patient was very lucid andgave a clear history. She denied CP, diaphoresis, orthopnea, PND, F, night sweats, weight loss, chills, CARLOS, vision changes, cough, abd pain, n/v/d, blood in stool, numbness/tingling, lightheadedness/dizziness, dysuria, myalgia. Reported normal appetite. ?? She was continued on nasal cannula and then later in the night upon falling asleep she was noted todesat to 59%. CATS call was done. Patient's O2 saturation did recover to 97% after being placed on Ventimask. Plan was to continue to monitor patient's O2 sats on the floor with increased nasal cannula setting to 6 L. However, patient continued to desat and was noted to be more and more difficult to arouse. She was placed on Ventimask after D satting to the 80s on nasal cannula 6 L. Patient then required nonrebreather mask and took around 5 minutes to improve her O2 saturation to the 90s. She was difficult to arouse and confused. RT attempted ABG without success. VBG through a new vein was also difficult to complete. Her IV line for the heparin infusion was then used for a VBG with values being 7.14/121/45/57. Patient was then accepted by the ICU for transfer. She required intubation on 03/19 due to hypercarbic respiratory failure, and then had a left sided pigtail placed with 1.6L out, which was sent for culture and cytology. She tolerated extubation the morning of 03/20. She did have significant agitation afterwards, thought to be in the setting of alcohol withdrawal. She was given phenobarbital and placed on precedex with resolution of symptoms, and precedex was weaned off the morning of 03/21. She was stable for transfer out of the MICU to the oncology service the afternoon of 03/21. Patient continued to do well. Mediastinal mass was biopsied on 03/22 with preliminary results showing poorlydifferentiated carcinoma. A CT abdomen/pelvis was obtained showing left breast mass as well as additional lesions to T12 and L2 vertebral bodies. Question was raised of a spot of hypoattenuation in liver. Left breast mass was biopsied on 03/25. Output from chest tube decreased and chest tube was removed on 03/26. Patient received CXR on 03/27 showing stable appearance of pleural effusions s/p drainage. Patient was discharged home on 03/27 with instructions to follow up with her PCP regarding this hospitalization as well as with oncology to discuss further treatment options. She was advised toreturn to hospital with any worsening SOB/ difficulty breathing. Condition at Discharge: Improved Clinical Issues Needing Follow-up: Mediastinal and Breast Mass Discharge Medications: START taking these medications Sig acetaminophen 500 mg tablet Commonly known as: TYLENOL Take 2 Tabs by mouth every 6 hours as needed for Pain. docusate sodium 100 mg capsule Commonly known as: COLACE Take 2 Caps by mouth 2 times daily as needed for Constipation. Multivitamins with Minerals tablet tablet Take 1 Tab by mouth daily. oxyCODONE 5 mg immediate release tablet Commonly known as: ROXICODONE Take 1-2 Tabs by mouth every 4 hours as needed for Pain. Daily Max: 60 mg Quantity: 10 Tab polyethylene glycol 3350 17 gram packet Commonly known as: MIRALAX Take 17 g by mouth daily. CONTINUE taking these medications Sig apixaban 5 mg tablet Commonly known as: ELIQUIS Take 5 mg by mouth 2 times daily. DILTiazem 240 mg SR capsule Commonly known as: TIAZAC Take 240 mg by mouth daily. metoprolol XL 200 mg tablet Commonly known as: TOPROL-XL Take 200 mg by mouth daily. Allergies Allergen Reactions ??? Penicillins Hives There is no immunization history on file for this patient. Results Pending at Discharge Test results still pending from this admission Procedure Component Value Units Date/Time Surgical Pathology [[id number]] Collected: 03/25/17 1412 Lab Status: In process Updated: 03/25/17 1413 Cytopathology [[id number]] Collected: 03/22/17 0000 Lab Status: In process Updated: 03/22/17 1621 Surgical Pathology [[id number]] Collected: 03/22/17 1615 Lab Status: In process Updated: 03/22/17 1617 AFB Culture/Smear, Other [[id number]] Collected: 03/19/17 1051 Lab Status: Preliminary result Specimen: FOSMIC from Pleural Fluid Updated: 03/21/17 1349 Acid Fast No acid-fast bacilli seen Result PENDING Fungus Culture/Smear, Other [[id number]] Collected: 03/19/17 1051 Lab Status: Preliminary result Specimen: FOSMIC from Pleural Fluid Updated: 03/21/17 1017 Fungal Smear No fungi seen Result PENDING Follow-up appointments and procedures Amb Consult/Follow Up Oncology Reason for Request: s/p Breast mass and mediastinal mass Expected Discharge Date (Inpatient Only): 03/25/2017 Authorizing Provider: Omar Kennedy MD Discharge Handoff Communication PCP office closed. Following information to be conveyed to office tomorrow, by Shanel Boyle MD: ?? Reason for admission and final diagnosis ?? Medication changes ?? Anticoagulation plan if applicable (including medications and next blood draw) ?? Appointments and tests needed after discharge (includes repeat studies and at what interval) ?? Tests (laboratory, pathology, etc.) pending at discharge Discharge Summary Completed By: Omar Kennedy MD Attending Attestation I interviewed and examined the patient; reviewed interval labs, events, and notes. I discussed the case with the medicine house staff team and agree with and edited the findings and plan of care as documented in resident discharge summary above. I personally spent 45 minutes counseling and preparing the patient for discharge and coordinating outpatient follow-up. Shanel Boyle MD Internal Medicine Hospitalist 03/27/2017 16:58 documented in this encounter Discharge Instructions * Discharge Instructions* Jyoti Jung RN - 03/22/2017 14:46 EDT documented in this encounter Medications at Time [...] daily. 03/27/2017 documented as of this encounter Ordered Prescriptions Prescription Sig Dispensed Refills Start Date End Da te polyethylene glycol 3350 (MIRALAX) 17 gram packet Take 17 g by mouth daily. 03/27/2017 oxyCODONE (ROXICODONE) 5 mg immediate release tablet Take 1-2 Tabs by mouth every 4 hours as needed for Pain. Daily Max: 60 mg 10 Tab 03/27/2017 Multivitamins with Minerals tablet tablet Take 1 Tab by mouth daily. 03/27/2017 docusate sodium (COLACE) 100 mg capsule Take 2 Caps by mouth 2 times daily as needed for Constipation. 03/27/2017 acetaminophen (TYLENOL) 500 mg tablet Take 2 Tabs by mouth every 6 hours as needed for Pain. 03/27/2017 documented in this encounter Discharge Disposition Disposition Code Departure Means Destination Home or Self Care documented in this encounter Progress Notes * Arin Almonte, PT - 03/27/2017 5550 EDT [facility] Therapy Acute Therapies [facility] Physical Therapy Discontinue/Discharge Note Date of Service: 03/27/2017 Precautions: Activity as tolerated, Up ad alexandru and Ambulate SUBJECTIVE: N/E patient discharged from hospital OBJECTIVE: Intervention Completed Today: No treatment rendered today due to: patient has been/will be discharged from hospital. Team Communication: N/E Patient has been seen in physical therapy since 03/21/17 for Therapeutic exercises and Therapeutic activities. In this reporting period 03/21/17 to 03/27/17 the patient has been seen by a physical therapist and physical therapist sales assistants and salespersons. Frequency: daily for 3 visits within 6 days. Intensity: 15-30 minutes per session. Duration:During this hospitalization. Please refer to the physical therapy notes for specifics on the patient's functional status and treatment sessions. Relevant objective findings: RANGE OF MOTION AND JOINT INTEGRITY: Active Range of Motion: Within normal limits MUSCLE PERFORMANCE: Strength: Formal resistive manual muscle testing not performed due to focus on functional activities at this time. Based on AROM and functional movement strength is as follows: ?? Upper Quarter: Left Upper Extremity: > to 3/5 as demonstrated functionally Right Upper Extremity: > to 3/5 as demonstrated functionally Cervical Spine: > to 3/5 as demonstrated functionally ?? Lower Quarter: Left Lower Extremity: > to 3/5 as demonstrated functionally Right Lower Extremity: > to 3/5 as demonstrated functionally Lumbar Spine: N/E BALANCE, MOBILITY, AND GAIT: Transfers: pt performed sit -> stand transfer from bedside with supervision assist and verbal cues for hand placement/ safety ?? Pt performed stand -> sit transfer to bedside with supervision assist and verbal cues for hand placement/ safety ?? Pt amb with RW, ~1000 feet, supervision assist with verbal cues to promote pacing and breathing to prevent premature fatigue, pt requires assist for management of O2. ?? Stairs: Patient ascended/descended 3 steps with rail, patient required supervision with task, though movingslowly, no assist required. Did need assist for management of chest tube and O2 tubing. ASSESSMENT: Physical therapy services in this setting have been discontinued secondary to: Patient has been or will be discharged from the hospital Physical Therapy Diagnosis: balance deficits, gait impairments, decreased tolerance to activity, impaired gas exchange Physical Therapy Prognosis: Patient is 61 year old with PMH A-fib and factor V leiden with current hospital admission for SOB, lung mass, large left pleural effusion, and acute respiratory failure. Patient made good progress throughout therapy, but does continues to require supervision for all OOB mobility. Patient is below baseline level of function, but presents with adequate mobility to discharge home with / family assist and home health services. Short-Term Goals: ?? N/E Long-Term Goals: - patient requires supervision for all mobility, family able to provide. All goalsdiscontinued. ?? Bed mobility: patient will be able to perform with modified independence demonstrating appropriate sequencing/motor planning. ?? Transfers: patient will be able to perform bed to chair transfers with modified independence with use of appropriate assistive device. ?? Ambulation: patient will be able to ambulate 100 feet on level surfaces with modified independence with use of appropriate assistive device. ?? The patient and/or caregiver will be able to recall recommendations. ?? All of the above mobility goals will be performed within vital sign parameters and oxygen saturation > 92%. ?? The patient will be able to perform stairs with modified independence with home set up for rails. PLAN: D/C Physical Therapy Recommended Discharge Destination: Home with family Recommended Discharge Services: Home health physical therapy Recommended Equipment Needs: Rolling walker Other recommendations: No other consults recommended at this time Pager: [phone] Arin Almonte, PT 03/27/2017 14:51 * Roseline Sultana - 03/27/2017 1305 EDT I told pt results and recommendations of left breast bx done on 03-25-17 (B9). Pt understood. elsa 03-30-17 * Kamilla Gomez - 03/27/2017 1305 EDT CM Discharge Note: Patient noted to have discharged to home with stable vitals, tolerating diet, ambulating without difficulty, pain controlled, voiding without dysuria. Kamilla Gomez BEHAVIORAL ANALYST CM #[id number]. * Beti Guerrier DO - 03/26/2017 1857 EDT Chest tube pulled at ~1800. Dressed with petroleum gauze and tegaderm. Reviewed dressing care with patient (leave on for 48 hours and if still open then can use BandAids over area until closed) and Dr. Boyle. Patient should not shower or submerge in water for 48 hours that the petroleum gauze is in place. Beti Guerrier DO Pulmonary/Critical Care Fellow, PGY-5 * Shanel Boyle MD - 03/26/2017 0652 EDT Medicine Progress Note Service Date: 03/26/2017 Admit Date: 03/19/2017 1:48 Reason for Admission: 61 y.o. female admitted with a chief complaint of SOB and now with a principal diagnosis of anterior mediastinal mass with bilateral pleural effusions (L>R) s/p chest tube placement with hospitalization complicated by hypoxic respiratory failure requiring intubation. 24 Hour Events: -Chest tube output 60 ml over last 24 hours; 10 cc since yesterday afternoon -Biopsy of L breast mass Subjective/Objective Subjective Encountered Brayan walking in the dugan with walker; denies SOB with ambulation. Brayan denies pain this morning; breathing is uncomfortable when going to sleep. No breast pain, no bleeding from bx site. Endorses sore ear from oxygen tubing. Endorses increased anxiety with transition between floors. Review of Systems Pertinent items are noted in Subjective/HPI Objective Vital Signs Temp: [36.2 ??C (97.2 ??F)-37 ??C (98.6 ??F)] (), Heart Rate: -- (), Resp: [18- 24] (), BP: (102-118)/(59-78) (), SpO2: [91 %-94 %] () Physical Exam Gen: Awake, alert, NAD, obese HEENT: PERRL, anicteric, EOMI Neck: Trachea midline CV: Irregularly irregular, no m/r/g Pulm: Decreased breath sounds left base otherwise CTAB. Abd: soft, NT/ND, normal bowel sounds, no rebound/guarding, no organomegaly appreciated Breast: palpable 2-3 cm lump sub-areolar on R. No skin changes or nipple discharge. 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 acetaminophen (TYLENOL) tablet 1,000 mg oral Q6H PRN ??? bisacodyl (DULCOLAX) suppository 10 mg rectal Daily PRN ??? DILTiazem (TIAZAC) ER capsule 240 mg oral DAILY ??? docusate sodium (COLACE) capsule 200 mg oral BID PRN ??? metoprolol XL (TOPROL-XL) tablet 200 mg oral DAILY ??? Multivitamins with Minerals tablet 1 Tab oral DAILY ??? ondansetron (ZOFRAN-ODT) disintegrating tablet 4 mg oral Q4H PRN ??? oxyCODONE (ROXICODONE) immediate release tablet 5-10 mg oral Q4H PRN ??? polyethylene glycol 3350 (MIRALAX) packet 17 g oral DAILY ??? senna (SENOKOT) tablet 2 Tab oral Daily PRN Labs Reviewed: WBC/Hgb/Hct/Plts: 5.42/14.4/43.9/195 (03/25 555) Na/K/Cl/CO2: 138/4.5/94/35 (03/25 555) Cytopathology: Negative for malignant cells. Numerous reactive mesothelial cells with rare multinucleated giant cells. Pleural Fluid Flow Cytometry: No immunophenotypic evidence of a clonal cell population. Imaging Reviewed: I have independently visualized images: CT abdomen, pelvis w contrast 03/23/2017 1. A 2.5 cm mass in the left breast is highly concerning for malignancy. Recommend diagnostic workup with mammogram and ultrasound. 2. Soft tissue nodularity in the paracardial fat better imaged on recent chest CT is concerning formetastatic disease. 3. At least 2 suspicious osseous lesions are identified, one in the T12 vertebral body and the other in the L2 vertebral body, both concerning for osseous metastases. 4. Ill-defined areas of hypoattenuation in the liver are nonspecific. If the presence of hepatic metastases would alter management, this could be further evaluated with contrast-enhanced MRI. 5. Decreased size of left pleural effusion following left pleural drain placement. There is a smallright pleural effusion. 6. Multiple bowel containing ventral hernias without evidence of bowel obstruction. Result Date: 03/21/2017 PORTABLE CHEST 1 VIEW 03/21/2017 9:55 AM Slight interval worsening of basilar opacities, otherwise stable appearing radiograph from one day prior. I have personally reviewed the images and the above interpretation and agree with the findings. CHEST PA 03/22/2017 3:55 PM Lungs and pleura: Increased opacity in the left base could reflect worsening airspace consolidation or increasing pleural fluid. Hazy opacity in the right base may be slightly better. The upper portions of the lungs are clear and the pulmonary vascularity is normal Mammo 03/25: R breast birads 1, L breast: Corresponding to the palpable lump, there is a round largely ?? circumscribed approximately 25 mm mass containing heterogeneous ?? calcifications. ??No other abnormalities are seen in the left breast. ? No axillary lymph nodes are identified. Assessment/Plan Assessment Brayan Jaramillo is a 61 y.o. female with history including atrial fibrillation on apixaban, obesity, HTN, and possible factor V Leiden, who presented 03/18 from an OSH with 3 months of progressive SOB with imaging revealing large anterior mediastinal mass with large left pleural effusion now s/p left chest tube placement. Hospitalization complicated by hypoxemic and hypercapneic respiratory failure requiring intubation which has now improved. She remains hemodynamically stable on NC with biopsy ofmediastinal mass prelim read showing poorly differentiated carcinoma, now s/p L breast mass identified on CT. Plan as outlined below. Plan Left breast mass with large anterior mediastinal mass with large left pleural effusion s/p left chest tube placement: Presented with 3 months of shortness of breath. OSH CT 03/18 revealed revealed large anterior mediastinal mass and large left pleural effusion with compressive atelectasis as well asmediastinal lymph node and pericardial involvement, CT showed L breast mass s/p biopsy 03/25 and s/p IR biopsy of lung 03/21, preliminary report showing poorly differentiated carcinoma - core biopsy L breast, path pending -Oncology consulted, appreciate recommendations -Pulmonology to follow for chest tube management - CT output of 60 ml over past 24 hours - CXR, then pull today- chest tube removed this evening -Continue Oxycodone 5-10 mg PRN q4 hours for chest tube insertion site pain. -Encourage IS use ?? 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 Agitation: Patient is 2 weeks out from last alcoholic drink and low suspicion for alcohol withdrawal. Suspect ICU hyperactive delirium, now resolved. - Will consider prn haldol in case patient becomes significantly agitated again ?? HTN - Vitals q4 hours - Continue cardiac meds as outlined above ?? Obesity: Likely has some element of YESSENIA vs obesity hypoventilation syndrome given mildly elevated bicarb/hypercarbic respiratory failure earlier in the hospital course. Weaned to RA -Can consider sleep study as outpatient -Monitor O2 saturation with goal >92%. ?? Factor V Leiden: No formal diagnosis. Was taking Eliquist for afib (not for factor V Leiden). No history of VTE. -Continue to monitor VTE Prophylaxis Pharmacologic Prophylaxis: Enoxaparin (Lovenox) 40 mg SQ daily Discharge Plan Likely home tomorrow if no significant re-accumulation of fluid and no O2 requirement. Consults Pulmonology Tricia Farah MD,PHD 03/26/2017 6:54 Attending Attestation I saw and examined the patient with the resident. I discussed the patient with Dr. Farah. I agreewith and edited (in green) the findings and plan of care as documented in the note above. Shanel Boyle MD Internal Medicine Hospitalist 03/26/2017 21:19 * Shanel Boyle MD - 03/25/2017 6876 EDT Medicine Progress Note Service Date: 03/25/2017 Admit Date: 03/19/2017 1:48 Reason for Admission: 61 y.o. female admitted with a chief complaint of SOB and now with a principal diagnosis of anterior mediastinal mass with bilateral pleural effusions (L>R) s/p chest tube placement with hospitalization complicated by hypoxic respiratory failure requiring intubation. 24 Hour Events: -Chest tube output 175ml over last 24 hours Subjective/Objective Subjective Patient doing well this morning. Denies SOB or chest pain. Some improvement in pain associated withchest tube. Has been ambulating without issues. Tolerating PO. Review of Systems Pertinent items are noted in Subjective/HPI Objective Vital Signs Temp: [35.9 ??C (96.7 ??F)-37.1 ??C (98.8 ??F)] (), Heart Rate: -- (), Resp: [16-18] (), BP: (115-133)/(69-79) (), SpO2: [93 %-94 %] () Physical Exam Gen: Awake, alert, NAD, obese HEENT: PERRL, anicteric, EOMI Neck: Trachea midline CV: Irregularly irregular, no m/r/g Pulm: Improving breath sounds left base otherwise CTAB. 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 No, PICC/Central line not present. Medications Reviewed: Current Facility-Administered Medications Medication Route Frequency ??? acetaminophen (TYLENOL) tablet 1,000 mg oral Q6H PRN ??? bisacodyl (DULCOLAX) suppository 10 mg rectal Daily PRN ??? DILTiazem (TIAZAC) ER capsule 240 mg oral DAILY ??? docusate sodium (COLACE) capsule 200 mg oral BID PRN ??? metoprolol XL (TOPROL-XL) tablet 200 mg oral DAILY ??? Multivitamins with Minerals tablet 1 Tab oral DAILY ??? ondansetron (ZOFRAN-ODT) disintegrating tablet 4 mg oral Q4H PRN ??? oxyCODONE (ROXICODONE) immediate release tablet 5-10 mg oral Q4H PRN ??? polyethylene glycol 3350 (MIRALAX) packet 17 g oral DAILY ??? senna (SENOKOT) tablet 2 Tab oral Daily PRN Labs Reviewed: WBC/Hgb/Hct/Plts: 5.42/14.4/43.9/195 (03/25 05) Na/K/Cl/CO2: 138/4.5/94/35 (03/25 555) Results for orders placed or performed during the hospital encounter of 03/19/17 (from the past 1008 hour(s)) AFB CULTURE/SMEAR, OTHER Collection Time: 03/19/17 10:51 Result Value Ref Range Status Acid Fast No acid-fast bacilli seen Preliminary Result PENDING Preliminary BACTERIAL CULTURE/SMEAR, FLUID Collection Time: 03/19/17 10:51 Result Value Ref Range Status Gram Smear Result Final Aerobic culture is included as part of an anaerobe culture request. This is a duplicate request. Gram Smear Result Credit Issued Final Result Final Aerobic culture is included as part of an anaerobe culture request. This is a duplicate request. Result Credit Issued Final FUNGUS CULTURE/SMEAR, OTHER Collection Time: 03/19/17 10:51 Result Value Ref Range Status Fungal Smear No fungi seen Preliminary Result PENDING Preliminary ANAEROBE CULTURE/SMEAR(INC. AEROBES), FLUID Collection Time: 03/19/17 10:51 Result Value Ref Range Status Gram Smear Result Polys present Preliminary Gram Smear Result No bacteria seen Preliminary Result No growth Preliminary Cytopathology: Negative for malignant cells. Numerous reactive mesothelial cells with rare multinucleated giant cells. Flow Cytometry: No immunophenotypic evidence of a clonal cell population. Imaging Reviewed: I have independently visualized images: CT abdomen, pelvis w contrast 03/23/2017 1. A 2.5 cm mass in the left breast is highly concerning for malignancy. Recommend diagnostic workup with mammogram and ultrasound. 2. Soft tissue nodularity in the paracardial fat better imaged on recent chest CT is concerning formetastatic disease. 3. At least 2 suspicious osseous lesions are identified, one in the T12 vertebral body and the other in the L2 vertebral body, both concerning for osseous metastases. 4. Ill-defined areas of hypoattenuation in the liver are nonspecific. If the presence of hepatic metastases would alter management, this could be further evaluated with contrast-enhanced MRI. 5. Decreased size of left pleural effusion following left pleural drain placement. There is a smallright pleural effusion. 6. Multiple bowel containing ventral hernias without evidence of bowel obstruction. Result Date: 03/21/2017 PORTABLE CHEST 1 VIEW 03/21/2017 9:55 AM Clinical History/Comments: Malignant neoplasm of unspecified part of left bronchus or lung. Left chest tube. Assess effusion Comparison: Multiple prior chest radiographs most recent March 19, 2017.. Findings: Single portable AP view of the chest. Lines/tubes: There has been interval removal of endotracheal and transesophageal tubes. A left-sided pigtail catheter projects over the left costophrenic angle. Soft tissues and bones: No significant abnormalities. Cardiac and mediastinal contours: The cardiac and mediastinal contours appear grossly within normal limits given technique and patient rotation. Lungs: There has been slight interval worsening of bibasilar dense opacities which could reflect pleural or parenchymal disease. The pulmonary vascularity is normal. Pleura: Redemonstrated left chest pigtail catheter is in stable position. There is noevidence of pneumothorax, but one cannot be excluded on this non-upright radiograph. Both costophrenic angles remain blunted. Impression: Slight interval worsening of basilar opacities, otherwise stable appearing radiograph from one day prior. I have personally reviewed the images and the above interpretation and agree with the findings. Chest Pa Result Date: 03/22/2017 CHEST PA 03/22/2017 3:55 PM Clinical History/Comments: Pleural effusion s/p chest tube placement and mediastinal biopsy, evaluate for pneumothorax/residue effusion Comparison: Multiple prior chest radiograph is most recent March 21, 2017.. Technique: Frontal view of the chest was performed. Findings: Soft tissues/bones: No significant abnormalities are identified. Cardiac and mediastinal contours: Normal for technique. Lungs and pleura: Increased opacity in the left base could reflect worsening airspace consolidation or increasing pleural fluid. Hazy opacity in the right base may be slightlybetter. The upper portions of the lungs are clear and the pulmonary vascularity is normal. There isno evidence of pneumothorax, but one cannot be excluded on this non-upright radiograph. I have personally reviewed the images and the above interpretation and agree with the findings. Ir Biopsy Guidance Assessment/Plan Assessment Brayan Jaramillo is a 61 y.o. female with history including atrial fibrillation on apixaban, obesity, HTN, and possible factor V Leiden, who presented 03/18 from an OSH with 3 months of progressive SOB with imaging revealing large anterior mediastinal mass with large left pleural effusion now s/p left chest tube placement. Hospitalization complicated by hypoxemic and hypercapneic respiratory failure requiring intubation which has now improved. She remains hemodynamically stable on NC with biopsy ofmediastinal mass prelim read showing poorly differentiated carcinoma with imaging showing L breast mass with T12 and L2 osseous legions. Plan as outlined below. Plan Left breast mass with large anterior mediastinal mass with large left pleural effusion s/p left chest tube placement: Presented with 3 months of shortness of breath. OSH CT 03/18 revealed revealed large anterior mediastinal mass and large left pleural effusion with compressive atelectasis as well asmediastinal lymph node and pericardial involvement. CT abdomen/pelvis obtained last night showing left breast mass and T12 and L2 verterbal bodies concerning for metastatic lesions. Oncology recommending breast biopsy to further evaluate mass. -IR biopsy 03/21, preliminary report showing carcinoma, likely breast origin given new imaging findings -Oncology consulted, appreciate recommendations. Plan for mammogram and breast biopsy today. -Pulmonology to follow for chest tube management, appreciate recommendations. Output of 175ml over passed 24 hours. -Continue Oxycodone 5-10 mg PRN q4 hours for chest tube insertion site pain. -Encourage IS use ?? 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 Agitation: Patient is 2 weeks out from last alcoholic drink and low suspicion for alcohol withdrawal. Suspect ICU hyperactive delirium, now resolved. - Will consider prn haldol in case patient becomes significantly agitated again ?? HTN - Vitals q4 hours - Continue cardiac meds as outlined above ?? Obesity: Likely has some element of YESSENIA vs obesity hypoventilation syndrome given mildly elevated bicarb/hypercarbic respiratory failure earlier in the hospital course. Weaned to 1L NC. -Can consider sleep study as outpatient -Monitor O2 saturation with goal >92%. ?? Factor V Leiden: No formal diagnosis. Was taking Eliquist for afib (not for factor V Leiden). No history of VTE. -Continue to monitor VTE Prophylaxis Pharmacologic Prophylaxis: Enoxaparin (Lovenox) 40 mg SQ daily Discharge Plan Likely home, timing uncertain given continued need for chest tube. Consults Pulmonology, Oncology Omar Kennedy MD 03/25/2017 13:49 Attending Attestation I saw and examined the patient with the resident. I discussed the patient with Dr. Kennedy and as well as the Oncology and Pulmonary consulting teams. I agree with and edited (in green) the findings and plan of care as documented in the note above. Shanel Boyle MD Internal Medicine Hospitalist 03/25/2017 18:48 * Arin Almonte, PT - 03/25/2017 1222 EDT Rehabilitation Therapies [facility] Note Date of Service: 03/25/2017 Attempted to see patient multiple times today, but meeting with team and then off of unit. Patient is below baseline level of function, but does present with adequate mobility to discharge home with 03/01 family assist and home health services, if medically ready to D/C over the weekend. Please encourage patient to ambulate TID daily. Will follow-up 03/28/17. Arin Almonte, PT 03/25/2017 12:23 * Aileen Williamson MD - 03/25/2017 0714 EDT Pulmonary Progress Note Service Date: 03/25/2017 Admit Date: 03/19/2017 1:48 Reason for Consult: Left sided pleural effusion Requesting Provider: Shanel Boyle MD Subjective/Objective Subjective Brayan states her breathing is good today. She is taking it one day at a time and is eager to get results of the biopsy. Review of Systems A ten point review of systems was performed. Pertinent positives are listed above, all others are negative. Objective Vital Signs Temp: [35.9 ??C (96.7 ??F)-37.1 ??C (98.8 ??F)] (), Heart Rate: [95 BPM] (), Resp: [16-17] (), BP: (105-133)/(61-79) (), SpO2: [93 %-96 %] () Physical Exam GEN: sitting upright at the edge of hospital bed in no distress HEAD: Normocephalic atraumatic EYES: Pupils are equal round and reactive to light and accommodation extraocular movements are intact THROAT: Oropharynx is clear oral mucosa is moist no pharyngeal exudates NECK: Supple, no jugular venous distention LYMPH: No cervical or supraclavicular lymphadenopathy CV: Regular rate and rhythm no murmurs rubs or gallops Chest: Normal symmetrical chest expansion and not using accessory muscles for breathing. Chest tubeinsertion site intact. RESP: bibasilar crackles and diminished breath sounds at both bases. ABD: Flat soft nontender nondistended bowel sounds are present EXT: Warm to touch capillary refill is less than 3 seconds, no cyanosis or clubbing. SKIN: Normal turgor no rashes NEURO: Alert and oriented ??3 no gross focal motor deficits noted cranial nerves II through XII grossly intact Medications Reviewed: No changes Current Facility-Administered Medications Medication Route Frequency ??? acetaminophen (TYLENOL) tablet 1,000 mg oral Q6H PRN ??? bisacodyl (DULCOLAX) suppository 10 mg rectal Daily PRN ??? DILTiazem (TIAZAC) ER capsule 240 mg oral DAILY ??? docusate sodium (COLACE) capsule 200 mg oral BID PRN ??? metoprolol XL (TOPROL-XL) tablet 200 mg oral DAILY ??? Multivitamins with Minerals tablet 1 Tab oral DAILY ??? ondansetron (ZOFRAN-ODT) disintegrating tablet 4 mg oral Q4H PRN ??? oxyCODONE (ROXICODONE) immediate release tablet 5-10 mg oral Q4H PRN ??? polyethylene glycol 3350 (MIRALAX) packet 17 g oral DAILY ??? senna (SENOKOT) tablet 2 Tab oral Daily PRN Labs: Reviewed I have personally reviewed CBC: Lab Results Component Value Date WBC 5.42 03/25/2017 RBC 4.47 03/25/2017 HGB 14.4 03/25/2017 HCT 43.9 03/25/2017 MCV 98 03/25/2017 MCH 32.2 03/25/2017 MCHC 32.8 03/25/2017 PLT 195 03/25/2017 NEUTROABS 3.41 03/25/2017 BMP: Lab Results Component Value Date NA 138 03/25/2017 K 4.5 03/25/2017 CL 94 (L) 03/25/2017 CO2 35 (H) 03/25/2017 BUN 13 03/21/2017 CREATININE 0.67 03/21/2017 GLUCOSEFINGE 126 (H) 03/23/2017 CALCIUM 8.7 03/22/2017 MG 1.8 03/20/2017 PHOS 2.6 03/20/2017 Coagulation: Lab Results Component Value Date PROTIME 12.6 03/25/2017 PTT 29 03/25/2017 HEPHEFUFH 0.33 03/21/2017 Imaging Reviewed: I have independently visualized images Assessment/Plan Assessment 61-year-old female with a history of atrial fibrillation on apixaban, hypertension, obesity and factor V Leiden who presented with progressively worsening shortness breath. Initial workup revealed an8.8 x 4.8 x 8.8 cm lobulated anterior mediastinal mass, large left and small right-sided pleural effusions and mediastinal lymphadenopathy. Her admission was complicated by hypoxia and hypercapnia for which she was transferred to the MICU initially placed on BiPAP and then requiring intubation(03/19). She was extubated on 03/20. Left-sided chest tube was placed that drained 1600 mL of straw-coloredexudative fluid on 03/19. No bacteria seen in Gram stain, AFB and fungal cultures are pending. Cytopathology of the pleural fluid negative for malignant cells. She underwent CT-guided biopsy of the mass 03/22, final pathology results pending. CT abdomen and pelvis showed a 2.5 cm breast mass with malignant features, concern for metastatic disease in pericardial fat and 2 suspicious osseus lesions in the spine. Scheduled to get biopsy of breast mass today. Decrease in left pleural effusion size noted in CT abdomen. Chest tube drained 155ml overnight. No air leak. Scheduled to get biopsy of right breast mass today. 1.- Anterior mediastinal mass 2.- Breast mass highly concerning for malignancy. 3.- Bilateral pleural effusions left greater than right. Status post chest tube placement on left pleural effusion 4.-Acute hypoxic respiratory failure Recommendations 1.- Chest tube on suction 20 cm H2O. May put to water seal for transfers. Get repeat chest x ray when drainage <150 ml in 24 hours to consider removing chest tube. 2.- Follow up biopsy results. 3.- Activity as tolerated 4.- Incentive Spirometry 5.- Supplemental oxugen to keep SO2>92%. Wean as tolerated. Patient seen and discussed with Dr. Valero. Aileen Williamson MD [place] Head Department of Pulmonary/Critical Care Pager [phone] Associated attestation - Maryann Valero MD - 03/27/2017 0050 EDT Attestation: I saw and examined the patient with the resident/fellow. I agree with the findings andplan of care documented in the resident's/fellow's note. Maryann Valero MD 03/27/2017 0:49 * Shanel Boyle MD - 03/24/2017 1157 EDT Medicine Progress Note Service Date: 03/24/2017 Admit Date: 03/19/2017 1:48 Reason for Admission: 61 y.o. female admitted with a chief complaint of SOB and now with a principal diagnosis of anterior mediastinal mass with bilateral pleural effusions (L>R) s/p chest tube placement with hospitalization complicated by hypoxic respiratory failure requiring intubation. 24 Hour Events: -Chest tube output 1490 ml over last 24 hours -Preliminary path showing poorly differentiated carcinoma Subjective/Objective Subjective Patient reports that she is hanging in there. Pain is improving at site of chest tube. Denies chest pain or SOB. Reports some drop in oxygen sats when O2 was off. Tolerating PO. Ambulating without assistance. Review of Systems Pertinent items are noted in Subjective/HPI Objective Vital Signs Temp: [35.9 ??C (96.6 ??F)-36.9 ??C (98.4 ??F)] (), Heart Rate: [95 BPM] (), Resp: [16-20] (), BP: (105-143)/(61-92) (), SpO2: [94 %-95 %] () Physical Exam Gen: Awake, alert, NAD, obese HEENT: PERRL, anicteric, EOMI Neck: Trachea midline CV: Irregularly irregular, no m/r/g Pulm: Decreased breath sounds left base otherwise CTAB. 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 No, PICC/Central line not present. Medications Reviewed: Current Facility-Administered Medications Medication Route Frequency ??? acetaminophen (TYLENOL) tablet 1,000 mg oral Q6H PRN ??? bisacodyl (DULCOLAX) suppository 10 mg rectal Daily PRN ??? DILTiazem (TIAZAC) ER capsule 240 mg oral DAILY ??? docusate sodium (COLACE) capsule 200 mg oral BID PRN ??? enoxaparin (LOVENOX) injection 40 mg subcutaneous QHS ??? metoprolol XL (TOPROL-XL) tablet 200 mg oral DAILY ??? Multivitamins with Minerals tablet 1 Tab oral DAILY ??? ondansetron (ZOFRAN-ODT) disintegrating tablet 4 mg oral Q4H PRN ??? oxyCODONE (ROXICODONE) immediate release tablet 5-10 mg oral Q4H PRN ??? polyethylene glycol 3350 (MIRALAX) packet 17 g oral DAILY ??? senna (SENOKOT) tablet 2 Tab oral Daily PRN Labs Reviewed: WBC/Hgb/Hct/Plts: 5.31/14.3/44.1/208 (03/24 555) Na/K/Cl/CO2: 138/4.4/94/34 (03/24 555) Results for orders placed or performed during the hospital encounter of 03/19/17 (from the past 1008 hour(s)) AFB CULTURE/SMEAR, OTHER Collection Time: 03/19/17 10:51 Result Value Ref Range Status Acid Fast No acid-fast bacilli seen Preliminary Result PENDING Preliminary BACTERIAL CULTURE/SMEAR, FLUID Collection Time: 03/19/17 10:51 Result Value Ref Range Status Gram Smear Result Final Aerobic culture is included as part of an anaerobe culture request. This is a duplicate request. Gram Smear Result Credit Issued Final Result Final Aerobic culture is included as part of an anaerobe culture request. This is a duplicate request. Result Credit Issued Final FUNGUS CULTURE/SMEAR, OTHER Collection Time: 03/19/17 10:51 Result Value Ref Range Status Fungal Smear No fungi seen Preliminary Result PENDING Preliminary ANAEROBE CULTURE/SMEAR(INC. AEROBES), FLUID Collection Time: 03/19/17 10:51 Result Value Ref Range Status Gram Smear Result Polys present Preliminary Gram Smear Result No bacteria seen Preliminary Result No growth Preliminary Cytopathology: Negative for malignant cells. Numerous reactive mesothelial cells with rare multinucleated giant cells. Flow Cytometry: No immunophenotypic evidence of a clonal cell population. Imaging Reviewed: I have independently visualized images: CT abdomen, pelvis w contrast 03/23/2017 1. A 2.5 cm mass in the left breast is highly concerning for malignancy. Recommend diagnostic workup with mammogram and ultrasound. 2. Soft tissue nodularity in the paracardial fat better imaged on recent chest CT is concerning formetastatic disease. 3. At least 2 suspicious osseous lesions are identified, one in the T12 vertebral body and the other in the L2 vertebral body, both concerning for osseous metastases. 4. Ill-defined areas of hypoattenuation in the liver are nonspecific. If the presence of hepatic metastases would alter management, this could be further evaluated with contrast-enhanced MRI. 5. Decreased size of left pleural effusion following left pleural drain placement. There is a smallright pleural effusion. 6. Multiple bowel containing ventral hernias without evidence of bowel obstruction. Result Date: 03/21/2017 PORTABLE CHEST 1 VIEW 03/21/2017 9:55 AM Clinical History/Comments: Malignant neoplasm of unspecified part of left bronchus or lung. Left chest tube. Assess effusion Comparison: Multiple prior chest radiographs most recent March 19, 2017.. Findings: Single portable AP view of the chest. Lines/tubes: There has been interval removal of endotracheal and transesophageal tubes. A left-sided pigtail catheter projects over the left costophrenic angle. Soft tissues and bones: No significant abnormalities. Cardiac and mediastinal contours: The cardiac and mediastinal contours appear grossly within normal limits given technique and patient rotation. Lungs: There has been slight interval worsening of bibasilar dense opacities which could reflect pleural or parenchymal disease. The pulmonary vascularity is normal. Pleura: Redemonstrated left chest pigtail catheter is in stable position. There is noevidence of pneumothorax, but one cannot be excluded on this non-upright radiograph. Both costophrenic angles remain blunted. Impression: Slight interval worsening of basilar opacities, otherwise stable appearing radiograph from one day prior. I have personally reviewed the images and the above interpretation and agree with the findings. Chest Pa Result Date: 03/22/2017 CHEST PA 03/22/2017 3:55 PM Clinical History/Comments: Pleural effusion s/p chest tube placement and mediastinal biopsy, evaluate for pneumothorax/residue effusion Comparison: Multiple prior chest radiograph is most recent March 21, 2017.. Technique: Frontal view of the chest was performed. Findings: Soft tissues/bones: No significant abnormalities are identified. Cardiac and mediastinal contours: Normal for technique. Lungs and pleura: Increased opacity in the left base could reflect worsening airspace consolidation or increasing pleural fluid. Hazy opacity in the right base may be slightlybetter. The upper portions of the lungs are clear and the pulmonary vascularity is normal. There isno evidence of pneumothorax, but one cannot be excluded on this non-upright radiograph. I have personally reviewed the images and the above interpretation and agree with the findings. Ir Biopsy Guidance Assessment/Plan Assessment Brayan Jaramillo is a 61 y.o. female with history including atrial fibrillation on apixaban, obesity, HTN, and possible factor V Leiden, who presented 03/18 from an OSH with 3 months of progressive SOB with imaging revealing large anterior mediastinal mass with large left pleural effusion now s/p left chest tube placement. Hospitalization complicated by hypoxemic and hypercapneic respiratory failure requiring intubation which has now improved. She remains hemodynamically stable on NC with biopsy ofmediastinal mass prelim read showing poorly differentiated carcinoma with new imaging showing L breast mass with T12 and L2 osseous legions. Plan as outlined below. Plan Left breast mass with large anterior mediastinal mass with large left pleural effusion s/p left chest tube placement: Presented with 3 months of shortness of breath. OSH CT 03/18 revealed revealed large anterior mediastinal mass and large left pleural effusion with compressive atelectasis as well asmediastinal lymph node and pericardial involvement. CT abdomen/pelvis obtained last night showing left breast mass and T12 and L2 verterbal bodies concerning for metastatic lesions. -IR biopsy 03/21, preliminary report showing carcinoma, likely breast origin given new imaging findings -Oncology consulted, appreciate recommendations. Will plan for biopsy of breast mass -Pulmonology to follow for chest tube management, appreciate recommendations. Continue wall suctiongiven output of 1490 ml over passed 24 hours. -Continue Oxycodone 5-10 mg PRN q4 hours for chest tube insertion site pain. -Encourage IS use ?? 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 Agitation: Patient is 2 weeks out from last alcoholic drink and low suspicion for alcohol withdrawal. Suspect ICU hyperactive delirium, now resolved. - Will consider prn haldol in case patient becomes significantly agitated again ?? HTN - Vitals q4 hours - Continue cardiac meds as outlined above ?? Obesity: Likely has some element of YESSENIA vs obesity hypoventilation syndrome given mildly elevated bicarb/hypercarbic respiratory failure earlier in the hospital course. Weaned to 1L NC. -Can consider sleep study as outpatient -Monitor O2 saturation with goal >92%. ?? Factor V Leiden: No formal diagnosis. Was taking Eliquist for afib (not for factor V Leiden). No history of VTE. -Continue to monitor VTE Prophylaxis Pharmacologic Prophylaxis: Enoxaparin (Lovenox) 40 mg SQ daily Discharge Plan Likely home, timing uncertain given continued need for chest tube. Consults Pulmonology Omar Kennedy MD 03/24/2017 11:57 Attending Attestation I saw and examined the patient. I discussed the patient with Dr. Kennedy and Dr. Farah. I agree with and edited (in green) the findings and plan of care as documented in the note above. Shanel Boyle MD Internal Medicine Hospitalist 03/24/2017 17:42 * Kamilla Gomez. - 03/24/2017 1110 EDT CM noted to fax requested completed [facility] paperwork to patient's spouse's employer ([employer], Anne Sanders, naphthalene operator [phone]). CM to continue to follow through discharge. Kamilla Gomez BEHAVIORAL ANALYST CM #[id number]. Addendum: Patient noted to continue to have a chest tube to suction with plan for water seal for transfers. CM anticipates patient to require continued acute level of care until chest tube is removed. Pulmonary is noted to be following. * Aileen Williamson MD - 03/24/2017 0803 EDT Pulmonary Progress Note Service Date: 03/24/2017 Admit Date: 03/19/2017 1:48 Reason for Consult: Left sided pleural effusion Requesting Provider: Shanel Boyle MD Subjective/Objective Subjective Brayan states she got some bad news today. She was told she could have breast cancer. Her breathing is good. And she has minimal chest discomfort in the chest tube insertion site. Review of Systems A ten point review of systems was performed. Pertinent positives are listed above, all others are negative. Objective Vital Signs Temp: [35.9 ??C (96.6 ??F)-36.9 ??C (98.4 ??F)] (), Heart Rate: [95 BPM] (), Resp: [16-20] (), BP: (105-143)/(61-92) (), SpO2: [94 %-95 %] () Physical Exam GEN: sitting upright at the edge of hospital bed in no distress HEAD: Normocephalic atraumatic EYES: Pupils are equal round and reactive to light and accommodation extraocular movements are intact THROAT: Oropharynx is clear oral mucosa is moist no pharyngeal exudates NECK: Supple, no jugular venous distention LYMPH: No cervical or supraclavicular lymphadenopathy CV: Regular rate and rhythm no murmurs rubs or gallops Chest: Normal symmetrical chest expansion and not using accessory muscles for breathing. Chest tubeinsertion site intact. RESP: bibasilar crackles and diminished breath sounds at both bases. ABD: Flat soft nontender nondistended bowel sounds are present EXT: Warm to touch capillary refill is less than 3 seconds, no cyanosis or clubbing. SKIN: Normal turgor no rashes NEURO: Alert and oriented ??3 no gross focal motor deficits noted cranial nerves II through XII grossly intact Medications Reviewed: No changes Current Facility-Administered Medications Medication Route Frequency ??? acetaminophen (TYLENOL) tablet 1,000 mg oral Q6H PRN ??? bisacodyl (DULCOLAX) suppository 10 mg rectal Daily PRN ??? DILTiazem (TIAZAC) ER capsule 240 mg oral DAILY ??? docusate sodium (COLACE) capsule 200 mg oral BID PRN ??? enoxaparin (LOVENOX) injection 40 mg subcutaneous QHS ??? metoprolol XL (TOPROL-XL) tablet 200 mg oral DAILY ??? Multivitamins with Minerals tablet 1 Tab oral DAILY ??? ondansetron (ZOFRAN-ODT) disintegrating tablet 4 mg oral Q4H PRN ??? oxyCODONE (ROXICODONE) immediate release tablet 5-10 mg oral Q4H PRN ??? polyethylene glycol 3350 (MIRALAX) packet 17 g oral DAILY ??? senna (SENOKOT) tablet 2 Tab oral Daily PRN Labs: Reviewed I have personally reviewed CBC: Lab Results Component Value Date WBC 5.31 03/24/2017 RBC 4.45 03/24/2017 HGB 14.3 03/24/2017 HCT 44.1 03/24/2017 MCV 99 (H) 03/24/2017 MCH 32.1 03/24/2017 MCHC 32.4 03/24/2017 PLT 208 03/24/2017 NEUTROABS 3.48 03/24/2017 BMP: Lab Results Component Value Date NA 138 03/24/2017 K 4.4 03/24/2017 CL 94 (L) 03/24/2017 CO2 34 (H) 03/24/2017 BUN 13 03/21/2017 CREATININE 0.67 03/21/2017 GLUCOSEFINGE 126 (H) 03/23/2017 CALCIUM 8.7 03/22/2017 MG 1.8 03/20/2017 PHOS 2.6 03/20/2017 Coagulation: Lab Results Component Value Date PROTIME 13.8 (H) 03/19/2017 HEPHEFUFH 0.33 03/21/2017 Imaging Reviewed: I have independently visualized images Result Date: 03/22/2017 CHEST PA 03/22/2017 3:55 PM Clinical History/Comments: Pleural effusion s/p chest tube placement and mediastinal biopsy, evaluate for pneumothorax/residue effusion Comparison: Multiple prior chest radiograph is most recent March 21, 2017.. Technique: Frontal view of the chest was performed. Findings: Soft tissues/bones: No significant abnormalities are identified. Cardiac and mediastinal contours: Normal for technique. Lungs and pleura: Increased opacity in the left base could reflect worsening airspace consolidation or increasing pleural fluid. Hazy opacity in the right base may be slightlybetter. The upper portions of the lungs are clear and the pulmonary vascularity is normal. There isno evidence of pneumothorax, Assessment/Plan Assessment 61-year-old female with a history of atrial fibrillation on apixaban, hypertension, obesity and factor V Leiden who presented with progressively worsening shortness breath. Initial workup revealed an8.8 x 4.8 x 8.8 cm lobulated anterior mediastinal mass, large left and small right-sided pleural effusions and mediastinal lymphadenopathy. Her admission was complicated by hypoxia and hypercapnia for which she was transferred to the MICU initially placed on BiPAP and then requiring intubation(03/19). She was extubated on 03/20. Left-sided chest tube was placed that drained 1600 mL of straw-coloredexudative fluid on 03/19. No bacteria seen in Gram stain, AFB and fungal cultures are pending. Cytopathology of the pleural fluid negative for malignant cells. She underwent CT-guided biopsy of the mass 03/22, final pathology results pending. CT abdomen and pelvis showed a 2.5 cm breast mass with malignant features, concern for metastatic disease in pericardial fat and 2 suspicious osseus lesions in the spine. Decrease in left pleural effusion size noted in CT abdomen. Chest tube drained 150 ml overnight but was off suction. Has [id number] ml since being put to suction this morning. No air leak. 1.- Anterior mediastinal mass: Differential includes thymoma, thymic carcinoma, lymphoma or less likely germ cell tumor 2.- Breast mass highly concerning for malignancy. 3.- Bilateral pleural effusions left greater than right. Status post chest tube placement on left pleural effusion 4.-Acute hypoxic respiratory failure Recommendations 1.- Chest tube on suction 20 cm H2O. May put to water seal for transfers. 2.- Follow up biopsy results. 3.- Activity as tolerated 4.- Incentive Spirometry 5.- Supplemental oxugen to keep SO2>92%. Wean as tolerated. Patient seen and discussed with Dr. Valero. Recommendations discussed with Dr. Kennedy. Aileen Williamson MD [place] Head Department of Pulmonary/Critical Care Pager [phone] Associated attestation - Maryann Valero MD - 03/27/2017 0048 EDT Attestation: I saw and examined the patient with the resident/fellow. I agree with the findings andplan of care documented in the resident's/fellow's note. Maryann Valero MD 03/27/2017 0:47 * Shanel Boyle MD - 03/23/2017 1240 EDT Medicine Progress Note Service Date: 03/23/2017 Admit Date: 03/19/2017 1:48 Reason for Admission: 61 y.o. female admitted with a chief complaint of SOB and now with a principal diagnosis of anterior mediastinal mass with bilateral pleural effusions (L>R) s/p chest tube placement with hospitalization complicated by hypoxic respiratory failure requiring intubation. 24 Hour Events: Mediastinal biopsy yesterday Chest tube placed back to wall suction for increase in CT output (846 over last 24 hours). Subjective/Objective Subjective Patient doing well this morning. Tolerating PO. Denies n/v. Having pain still at chest tube site. No SOB. Review of Systems Pertinent items are noted in Subjective/HPI Objective Vital Signs Temp: [35.5 ??C (95.9 ??F)-36.3 ??C (97.3 ??F)] (), Heart Rate: [74 BPM-89 BPM] (), Resp: [15-21] (), BP: (108-134)/(66-95) (), SpO2: [93 %-98 %] () Physical Exam Gen: Awake, alert, NAD, obese HEENT: PERRL, anicteric, EOMI Neck: Trachea midline CV: Irregularly irregular, no m/r/g Pulm: Decreased breath sounds left base otherwise CTAB. 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 No, PICC/Central line not present. Medications Reviewed: Current Facility-Administered Medications Medication Route Frequency ??? acetaminophen (TYLENOL) tablet 1,000 mg oral Q6H PRN ??? bisacodyl (DULCOLAX) suppository 10 mg rectal Daily PRN ??? DILTiazem (TIAZAC) ER capsule 240 mg oral DAILY ??? docusate sodium (COLACE) capsule 200 mg oral BID PRN ??? metoprolol XL (TOPROL-XL) tablet 200 mg oral DAILY ??? Multivitamins with Minerals tablet 1 Tab oral DAILY ??? ondansetron (ZOFRAN-ODT) disintegrating tablet 4 mg oral Q4H PRN ??? oxyCODONE (ROXICODONE) immediate release tablet 5-10 mg oral Q4H PRN ??? polyethylene glycol 3350 (MIRALAX) packet 17 g oral DAILY ??? senna (SENOKOT) tablet 2 Tab oral Daily PRN Labs Reviewed: WBC/Hgb/Hct/Plts: 6.20/14.5/44.3/188 (03/23 547) BUN/Cr/glu/ALT/AST/amyl/lip: 13/0.67/--/--/--/--/-- (03/21 301) Na/K/Cl/CO2: 134/4.0/92/31 (03/23 547) Results for orders placed or performed during the hospital encounter of 03/19/17 (from the past 1008 hour(s)) AFB CULTURE/SMEAR, OTHER Collection Time: 03/19/17 10:51 Result Value Ref Range Status Acid Fast No acid-fast bacilli seen Preliminary Result PENDING Preliminary BACTERIAL CULTURE/SMEAR, FLUID Collection Time: 03/19/17 10:51 Result Value Ref Range Status Gram Smear Result Final Aerobic culture is included as part of an anaerobe culture request. This is a duplicate request. Gram Smear Result Credit Issued Final Result Final Aerobic culture is included as part of an anaerobe culture request. This is a duplicate request. Result Credit Issued Final FUNGUS CULTURE/SMEAR, OTHER Collection Time: 03/19/17 10:51 Result Value Ref Range Status Fungal Smear No fungi seen Preliminary Result PENDING Preliminary ANAEROBE CULTURE/SMEAR(INC. AEROBES), FLUID Collection Time: 03/19/17 10:51 Result Value Ref Range Status Gram Smear Result Polys present Preliminary Gram Smear Result No bacteria seen Preliminary Result No growth Preliminary Cytopathology: Negative for malignant cells. Numerous reactive mesothelial cells with rare multinucleated giant cells. Flow Cytometry: No immunophenotypic evidence of a clonal cell population. Imaging Reviewed: I have independently visualized images Portable Chest 1 View Result Date: 03/21/2017 PORTABLE CHEST 1 VIEW 03/21/2017 9:55 AM Clinical History/Comments: Malignant neoplasm of unspecified part of left bronchus or lung. Left chest tube. Assess effusion Comparison: Multiple prior chest radiographs most recent March 19, 2017.. Findings: Single portable AP view of the chest. Lines/tubes: There has been interval removal of endotracheal and transesophageal tubes. A left-sided pigtail catheter projects over the left costophrenic angle. Soft tissues and bones: No significant abnormalities. Cardiac and mediastinal contours: The cardiac and mediastinal contours appear grossly within normal limits given technique and patient rotation. Lungs: There has been slight interval worsening of bibasilar dense opacities which could reflect pleural or parenchymal disease. The pulmonary vascularity is normal. Pleura: Redemonstrated left chest pigtail catheter is in stable position. There is noevidence of pneumothorax, but one cannot be excluded on this non-upright radiograph. Both costophrenic angles remain blunted. Impression: Slight interval worsening of basilar opacities, otherwise stable appearing radiograph from one day prior. I have personally reviewed the images and the above interpretation and agree with the findings. Chest Pa Result Date: 03/22/2017 CHEST PA 03/22/2017 3:55 PM Clinical History/Comments: Pleural effusion s/p chest tube placement and mediastinal biopsy, evaluate for pneumothorax/residue effusion Comparison: Multiple prior chest radiograph is most recent March 21, 2017.. Technique: Frontal view of the chest was performed. Findings: Soft tissues/bones: No significant abnormalities are identified. Cardiac and mediastinal contours: Normal for technique. Lungs and pleura: Increased opacity in the left base could reflect worsening airspace consolidation or increasing pleural fluid. Hazy opacity in the right base may be slightlybetter. The upper portions of the lungs are clear and the pulmonary vascularity is normal. There isno evidence of pneumothorax, but one cannot be excluded on this non-upright radiograph. I have personally reviewed the images and the above interpretation and agree with the findings. Ir Biopsy Guidance Result Date: 03/22/2017 IR BIOPSY GUIDANCE 03/22/2017 2:40 PM Signs and Symptoms/Comments: mediastinal mass with LAD, diagnostic for malignancy. Procedure: A sonographic examination of the chest was performed confirming a lobulated soft tissue mass in the left parasternal region corresponding with the anterior based on mass seen on the recent CT study performed at an outside institution. An appropriate needle entry sitewas chosen along the left upper intercostal space and internal mammary vessels visualized. Real-time sonographic guidance after sterile preparation and local anesthesia, a 19-gauge guide needle was advanced into the mass and several aspirates obtained. In addition, core biopsy specimens using a 20-gauge automated cutting biopsy needle were obtained for diagnostic purposes. The patient tolerated the procedure well and there were no complications encountered. Pression: Successful ultrasound-guided aspiration and core biopsy of a left anterior mediastinal mass using a left parasternal approach. There were no immediate complications encountered.. Assessment/Plan Assessment Brayan Jaramillo is a 61 y.o. female with history including atrial fibrillation on apixaban, obesity, HTN, and possible factor V Leiden, who presented 03/18 from an OSH with 3 months of progressive SOB with imaging revealing large anterior mediastinal mass with large left pleural effusion now s/p left chest tube placement. Hospitalization complicated by hypoxemic and hypercapneic respiratory failure requiring intubation which has now improved. She remains hemodynamically stable on NC with biopsy ofmediastinal mass yesterday. Plan as outlined below. Plan Anterior mediastinal lung mass with large left pleural effusion s/p left chest tube placement: Presented with 3 months of shortness of breath. OSH CT 03/18 revealed revealed large anterior mediastinalmass and large left pleural effusion with compressive atelectasis as well as mediastinal lymph nodeand pericardial involvement. Fluid cytology negative though showing exudative process. Fluid flow cytometry negative. Differential includes lymphoma, thymoma, thyroid cancer or primary lung cancer. Teratoma unlikely given negative tumor markers. -IR biopsy yesterday, preliminary results pending (preliminary report showing carcinoma, patient isaware) -will consult Medical Oncology tomorrow am -Pulmonology to follow for chest tube management, appreciate recommendations. Placed back to wall suction today as there was increased output of 846 ml over passed 24 hours. -Continue Oxycodone 5-10 mg PRN q4 hours for chest tube insertion site pain. -Encourage IS use ?? 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 Agitation: Patient is 2 weeks out from last alcoholic drink and low suspicion for alcohol withdrawal. Suspect ICU hyperactive delirium, now resolved. - Will consider prn haldol in case patient becomes significantly agitated again ?? HTN - Vitals q4 hours - Continue cardiac meds as outlined above ?? Obesity: Likely has some element of YESSENIA vs obesity hypoventilation syndrome given mildly elevated bicarb/hypercarbic respiratory failure earlier in the hospital course. Weaned to 1L NC. -Can consider sleep study as outpatient -Monitor O2 saturation with goal >92%. ?? Factor V Leiden: No formal diagnosis. Was taking Eliquist for afib (not for factor V Leiden). No history of VTE. -Continue to monitor VTE Prophylaxis Pharmacologic Prophylaxis: Enoxaparin (Lovenox) 40 mg SQ daily Discharge Plan Likely home, timing uncertain given need for biopsy results to determine further treatment options/plan Consults Pulmonology Omar Kennedy MD 03/23/2017 12:40 Attending Attestation I saw and examined the patient. I discussed the patient with Dr. Kennedy and Dr. Farah. I agree with and edited (in green) the findings and plan of care as documented in the note above. Shanel Boyle MD Internal Medicine Hospitalist 03/23/2017 16:04 * Kamilla Gomez - 03/23/2017 1145 EDT CM noted to speak with patient/daughter in regards to anticipated d/c planning for later this week. Patient noted to be agreeable to issuing of a rolling walker per [facility] but will determine if she desires a home PT consult closer to d/c. Patient to select a home oxygen vendor closer to d/c if she qualifies for home oxygen at time of d/c. Patient also reports having been assigned Beti Guo NP in Dr. Gutierrez's office as her GP. CM to have this added to facesheet. Patient reports does not have STD with her employer but does have an [employer] policy that may include STD benefit. Daughter indicates she will call to determine its benefits. CM to continue to follow through discharge. Kamilla Gomez RN BSN CM #[id number]. * Ramses Flores PTA - 03/23/2017 1143 EDT [facility] Acute Therapies [facility] Physical Therapy Encounter Note Date of Service: 03/23/2017 Subjective/Objective Subjective Im doing pretty well I think Objective Intervention completed today: Time: 1020 Total treatment time: 25 minutes. Timed code treatment minutes: 25 Vital signs were monitored and were stable throughout physical therapy session. Therapeutic Activity: Transfers: pt performed sit -> stand transfer from bedside with supervision assist and verbal cues for hand placement/ safety Pt performed stand -> sit transfer to bedside with supervision assist and verbal cues for hand placement/ safety Pt amb with RW, ~1000 feet, supervision assist with verbal cues to promote pacing and breathing to prevent premature fatigue, pt requires assist for management of O2. Stairs: Patient ascended/descended 3 steps with rail, patient required supervision with task, though movingslowly, no assist required. Did need assist for management of chest tube and O2 tubing. Patient/Family Education: Topic: Activity pacing/Energy conservation Gait Precautions/protocol Safety Stairs Transfers Learner: patient and family Method: verbal Barriers to Learning: none noted Outcome: verbalized understanding Team Communication: The patient's status was discussed with the patient's nurse before and after the physical therapy session. Assessment/Plan Assessment Pt tolerated session well, demonstrates good improvement of mobility, pt awaiting biopsy results todetermine plan. Will likely follow up on Tuesday if still in hospital. Encouraged TID ambulation on unit with staff assist (chest tube and O2 tubing management). Plan Continue per plan of care Recommended Discharge Destination: Home with family Recommended Discharge Services: Home health physical therapy Recommended Equipment Needs: Rolling walker Other recommendations: No other consults recommended at this time Primary Therapist: Dorian Flores PTA 03/23/2017 11:43 Pager: [phone] * Aileen Williamson MD - 03/23/2017 0811 EDT Pulmonary Progress Note Service Date: 03/23/2017 Admit Date: 03/19/2017 1:48 Reason for Consult: Left sided pleural effusion and anterior mediastinal mass Requesting Provider: Shanel Boyle MD Subjective/Objective Subjective Mrs. Jaramillo feels good today. She has some discomfort at the chest tube site. She states she had agood night sleep. She is anxious to find out about the results of the biopsy. Review of Systems A ten point review of systems was performed. Pertinent positives are listed above, all others are negative. Objective Vital Signs Temp: [35.5 ??C (95.9 ??F)-36.3 ??C (97.3 ??F)] (), Heart Rate: [74 BPM-89 BPM] (), Resp: [15-21] (), BP: (108-134)/(66-95) (), SpO2: [93 %-98 %] () Physical Exam GEN: sitting upright at the edge of hospital bed in no distress HEAD: Normocephalic atraumatic EYES: Pupils are equal round and reactive to light and accommodation extraocular movements are intact THROAT: Oropharynx is clear oral mucosa is moist no pharyngeal exudates NECK: Supple, no jugular venous distention LYMPH: No cervical or supraclavicular lymphadenopathy CV: Regular rate and rhythm no murmurs rubs or gallops Chest: Normal symmetrical chest expansion and not using accessory muscles for breathing. Chest tubeinsertion site intact. RESP: bibasilar crackles and diminished breath sounds at both bases. ABD: Flat soft nontender nondistended bowel sounds are present EXT: Warm to touch capillary refill is less than 3 seconds, no cyanosis or clubbing. SKIN: Normal turgor no rashes NEURO: Alert and oriented ??3 no gross focal motor deficits noted cranial nerves II through XII grossly intact Medications Reviewed: No changes Current Facility-Administered Medications Medication Route Frequency ??? acetaminophen (TYLENOL) tablet 1,000 mg oral Q6H PRN ??? bisacodyl (DULCOLAX) suppository 10 mg rectal Daily PRN ??? DILTiazem (TIAZAC) ER capsule 240 mg oral DAILY ??? docusate sodium (COLACE) capsule 200 mg oral BID PRN ??? metoprolol XL (TOPROL-XL) tablet 200 mg oral DAILY ??? Multivitamins with Minerals tablet 1 Tab oral DAILY ??? ondansetron (ZOFRAN-ODT) disintegrating tablet 4 mg oral Q4H PRN ??? oxyCODONE (ROXICODONE) immediate release tablet 5-10 mg oral Q4H PRN ??? polyethylene glycol 3350 (MIRALAX) packet 17 g oral DAILY ??? senna (SENOKOT) tablet 2 Tab oral Daily PRN Labs: Reviewed I have personally reviewed CBC: Lab Results Component Value Date WBC 6.20 03/23/2017 RBC 4.45 03/23/2017 HGB 14.5 03/23/2017 HCT 44.3 03/23/2017 MCV 100 (H) 03/23/2017 MCH 32.6 03/23/2017 MCHC 32.7 03/23/2017 PLT 188 03/23/2017 NEUTROABS 4.56 03/23/2017 BMP: Lab Results Component Value Date NA 134 (L) 03/23/2017 K 4.0 03/23/2017 CL 92 (L) 03/23/2017 CO2 31 03/23/2017 BUN 13 03/21/2017 CREATININE 0.67 03/21/2017 CALCIUM 8.7 03/22/2017 MG 1.8 03/20/2017 PHOS 2.6 03/20/2017 Coagulation: Lab Results Component Value Date PROTIME 13.8 (H) 03/19/2017 HEPHEFUFH 0.33 03/21/2017 Imaging Reviewed: I have independently visualized images Result Date: 03/22/2017 CHEST PA 03/22/2017 3:55 PM Clinical History/Comments: Pleural effusion s/p chest tube placement and mediastinal biopsy, evaluate for pneumothorax/residue effusion Comparison: Multiple prior chest radiograph is most recent March 21, 2017.. Technique: Frontal view of the chest was performed. Findings: Soft tissues/bones: No significant abnormalities are identified. Cardiac and mediastinal contours: Normal for technique. Lungs and pleura: Increased opacity in the left base could reflect worsening airspace consolidation or increasing pleural fluid. Hazy opacity in the right base may be slightlybetter. The upper portions of the lungs are clear and the pulmonary vascularity is normal. There isno evidence of pneumothorax, Assessment/Plan Assessment 61-year-old female with a history of atrial fibrillation on apixaban, hypertension, obesity and factor V Leiden who presented with progressively worsening shortness breath. Initial workup revealed an8.8 x 4.8 x 8.8 cm lobulated anterior mediastinal mass, large left and small right-sided pleural effusions and mediastinal lymphadenopathy. Her admission was complicated by hypoxia and hypercapnia for which she was transferred to the MICU initially placed on BiPAP and then requiring intubation(03/19). She was extubated on 03/20. Left-sided chest tube was placed that drained 1600 mL of straw-coloredexudative fluid on 03/19. No bacteria seen in Gram stain, AFB and fungal cultures are pending. Cytopathology of the pleural fluid negative for malignant cells. She underwent CT-guided biopsy of the mass yesterday, final pathology results pending. Repeat chest x-ray done yesterday shows increased opacity in the left base that could reflect worsening airspace consolidation or increasing pleural fluid. Chest tube drained over 800 ml in last 24 hours. 1.- Anterior mediastinal mass: Differential includes thymoma, thymic carcinoma, lymphoma or less likely germ cell tumor 2.- Bilateral pleural effusions left greater than right. Status post chest tube placement on left pleural effusion 3.-Acute hypoxic/hypercapnic respiratory failure Recommendations 1.- Chest tube placed back on suction 20 cm H2O. May put to water seal for transfers. 2.- Follow up biopsy results. 3.- Activity as tolerated 4.- Incentive Spirometry 5.- Supplemental oxugen to keep SO2>92%. Wean as tolerated. Patient seen and discussed with Dr. Valero. Recommendations discussed with Dr. Kennedy. Aileen Williamson MD [place] Head Department of Pulmonary/Critical Care Pager [phone] Associated attestation - Maryann Valero MD - 03/23/2017 1545 EDT Attestation: I saw and examined the patient with the resident/fellow 03/23/2017. I agree with the findings and plan of care documented in the resident's/fellow's note. Maryann Valero MD 03/23/2017 15:45 * Jyoti Jung RN - 03/22/2017 1305 EDT I have reviewed Labs, MAR, Pt history. I have noted the sedation orders by TK. I have reviewed all over pertinent orders for this procedure. The H + P has been completed TK. ASA 3. The site has been site marked anterior upper left chest by EULALIA QUINTANILLA. Pt and family member greeted in inpt holding area. ID'd by name, and viewed name bracelet. Assessed IV. As the nurse in the room I explained goals of procedure and sedation relating to nursing goals. Pt verbalizes all questions have been answered regarding procedure. Pt meets criteria to receive IV sedation. Pt in room time is 1330. I have reviewed the consent for the procedure. Pt positioned Supine on bed. Elbows with padding, Safety straps in place. VS assessed. Administration of conscious sedation began at 1354 . Sterile prep of left upper chest with chlorprep by CRYSTALG in the usual sterile fashion in accordance with manufactures recommendation. [place] moment for mediastinal mass biopsy with FNA and core samples procedure verbalized with all team members listening At 1355 between STEFANY/KERRY and TK with EULALIA as supervising attending. At start of the procedure the patient is responds to soft verbal stimuli, pt groggy before sedationstarted- sedation titrated as appropriate. Ultrasound guidance utilized for precise needle placement. Cyto called to room. Cyto given FNA and core samples and bringing them to the lab. Bandaid placed on left anterior chest. Report called to Tricia CORTES on B3. labs sent with cyto tech. family notified end of procedure. follow up plan discussed with In suite provider. Defer to Physicians note for procedure outcomes Medications administered during the procedure, over 31 minutes of time in titrated, divided doses, Versed 0 Mg Fentanyl 25 Mcg IV. Pt responded to sedation well, appeared to be resting throughout theprocedure. Other Meds given during procedure none IVF during procedure 100 mLs. Pt tolerated procedure well, transported back to inpt holding in stable condition, daughter brought to bedside. Discharge instructions placed in prism. * Ramses Flores PTA - 03/22/2017 1054 EDT [facility] Acute Therapies [facility] Physical Therapy Encounter Note Date of Service: 03/22/2017 Subjective/Objective Subjective Oh it feels good to be up and moving Objective Intervention completed today: Time: 1025 Total treatment time: 25 minutes. Timed code treatment minutes: 25 Vital signs were monitored and were stable throughout physical therapy session. 97% on 3 L at rest 95% on 2L at rest 88% on 2 L with ambulation 91% on 3L on return to room. Therapeutic Activity: Bed Mobility: pt sitting edge of bed at start and end of session, dtr present in room Transfers: pt performed sit -> stand transfer from bedside with min assist and verbal cues for hand placement/ safety Pt performed stand -> sit transfer to bedside with min assist and verbal cues for hand placement/ safety Pt requires assist to manage chest tube canister and O2 tubing with mobility. Pt amb with RW, ~500 feet, supervision assist with verbal cues to promote upright posture, proper pacing and breathing strategies to prevent premature fatigue. Pt tolerated distance well, desaturatedto 88% at end of distance. Stairs: Patient ascended/descended 3 steps with single rail, patient required min contact assist with verbal cues for sequencing. Patient/Family Education: Topic: Activity pacing/Energy conservation Assistive device/technique Discharge planning Gait Safety Stairs Transfers Learner: patient and family Method: verbal Barriers to Learning: none noted Outcome: verbalized understanding Team Communication: The patient's status was discussed with the patient's nurse before and after the physical therapy session. Assessment/Plan Assessment Pt tolerated session very well, able to ambulate entire loop on unit. Minimal pain.discomfort. Awaiting procedure today, encouraged another lap on unit this evening with nursing staff as able. Plan Continue per plan of care Recommended Discharge Destination: Home with family Recommended Discharge Services: Home health physical therapy Recommended Equipment Needs: Rolling walker Other recommendations: No other consults recommended at this time Primary Therapist: Chhaya Flores PTA 03/22/2017 10:55 Pager: [phone] * Shanel Boyle MD - 03/22/2017 1019 EDT Medicine Progress Note Service Date: 03/22/2017 Admit Date: 03/19/2017 1:48 Reason for Admission: 61 y.o. female admitted with a chief complaint of SOB and now with a principal diagnosis of anterior mediastinal mass with bilateral pleural effusions (L>R) s/p chest tube placement with hospitalization complicated by hypoxic respiratory failure requiring intubation. 24 Hour Events: Transferred to oncology service NPO for mediastinal mass biopsy today Subjective/Objective Subjective Patient reports that she is doing well this morning. Tolerated diet yesterday. Up and walking hallsyesterday. Still with pain at chest tube insertion site with movement, but pain otherwise controlled. She is anxious about procedure today, and about whole clinical situation. Denies chest pain, fevers, chills. Review of Systems Pertinent items are noted in Subjective/HPI Objective Vital Signs Temp: [36.2 ??C (97.2 ??F)-36.8 ??C (98.2 ??F)] (), Heart Rate: [86 BPM-95 BPM] (), Resp: [13-29] (), BP: (104-124)/(64-77) (), SpO2: [87 %-96 %] () Physical Exam Gen: Awake, alert, NAD, obese HEENT: PERRL, anicteric, EOMI Neck: Trachea midline CV: Irregularly irregular, no m/r/g Pulm: Decreased breath sounds left base otherwise CTA. 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 No, PICC/Central line not present. Medications Reviewed: Current Facility-Administered Medications Medication Route Frequency ??? acetaminophen (TYLENOL) tablet 1,000 mg oral Q6H PRN ??? bisacodyl (DULCOLAX) suppository 10 mg rectal Daily PRN ??? DILTiazem (TIAZAC) ER capsule 240 mg oral DAILY ??? docusate sodium (COLACE) capsule 200 mg oral BID PRN ??? metoprolol XL (TOPROL-XL) tablet 200 mg oral DAILY ??? Multivitamins with Minerals tablet 1 Tab oral DAILY ??? ondansetron (ZOFRAN-ODT) disintegrating tablet 4 mg oral Q4H PRN ??? oxyCODONE (ROXICODONE) immediate release tablet 5-10 mg oral Q4H PRN ??? polyethylene glycol 3350 (MIRALAX) packet 17 g oral DAILY ??? senna (SENOKOT) tablet 2 Tab oral Daily PRN Labs Reviewed: WBC/Hgb/Hct/Plts: 8.50/14.1/43.3/178 (03/22 539) BUN/Cr/glu/ALT/AST/amyl/lip: 13/0.67/--/--/--/--/-- (03/21 301) Na/K/Cl/CO2: 136/3.9/94/32 (03/22 539) Results for orders placed or performed during the hospital encounter of 03/19/17 (from the past 1008 hour(s)) AFB CULTURE/SMEAR, OTHER Collection Time: 03/19/17 10:51 Result Value Ref Range Status Acid Fast No acid-fast bacilli seen Preliminary Result PENDING Preliminary BACTERIAL CULTURE/SMEAR, FLUID Collection Time: 03/19/17 10:51 Result Value Ref Range Status Gram Smear Result Final Aerobic culture is included as part of an anaerobe culture request. This is a duplicate request. Gram Smear Result Credit Issued Final Result Final Aerobic culture is included as part of an anaerobe culture request. This is a duplicate request. Result Credit Issued Final FUNGUS CULTURE/SMEAR, OTHER Collection Time: 03/19/17 10:51 Result Value Ref Range Status Fungal Smear No fungi seen Preliminary Result PENDING Preliminary ANAEROBE CULTURE/SMEAR(INC. AEROBES), FLUID Collection Time: 03/19/17 10:51 Result Value Ref Range Status Gram Smear Result Polys present Preliminary Gram Smear Result No bacteria seen Preliminary Result No growth Preliminary Cytopathology: Negative for malignant cells. Numerous reactive mesothelial cells with rare multinucleated giant cells. Flow Cytometry: No immunophenotypic evidence of a clonal cell population. Imaging Reviewed: No new imaging. Assessment/Plan Assessment Brayan Jaramillo is a 61 y.o. female with history including atrial fibrillation on apixaban, obesity, HTN, and possible factor V Leiden, who presented 03/18 from an OSH with 3 months of progressive SOB with imaging revealing large anterior mediastinal mass with large left pleural effusion now s/p left chest tube placement. Hospitalization complicated by hypoxemic and hypercapneic respiratory failure requiring intubation which has now improved. She remains hemodynamically stable on NC. Plan as outlined below. Plan Anterior mediastinal lung mass with large left pleural effusion s/p left chest tube placement: Presented with 3 months of shortness of breath. OSH CT 03/18 revealed revealed large anterior mediastinalmass and large left pleural effusion with compressive atelectasis as well as mediastinal lymph nodeand pericardial involvement. Fluid cytology negative though showing exudative process. Fluid flow cytometry negative. Differential includes lymphoma, thymoma, thyroid cancer or primary lung cancer. Teratoma unlikely given negative tumor markers. -IR biopsy today of mediastinal mass -NPO -Pulmonology to follow for chest tube management, appreciate recommendations. Will obtain CXR todayfollowing biopsy with anticipation of chest tube discontinuation this afternoon. -Continue Oxycodone 5-10 mg PRN q4 hours for chest tube insertion site pain. -Encourage IS use ?? 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 Agitation: Patient is 2 weeks out from last alcoholic drink and low suspicion for alcohol withdrawal. Suspect ICU hyperactive delirium, now resolved. - Will consider prn haldol in case patient becomes significantly agitated again ?? HTN - Vitals q4 hours - Continue cardiac meds as outlined above ?? Obesity: Likely has some element of YESSENIA vs obesity hypoventilation syndrome given mildly elevated bicarb/hypercarbic respiratory failure earlier int he hospital course. Stable on 3L NC. -Can consider sleep study as outpatient -Monitor O2 saturation with goal >92%. ?? Factor V Leiden: No formal diagnosis. Was taking Eliquist for afib (not for factor V Leiden). No history of VTE. -Continue to monitor VTE Prophylaxis Pharmacologic Prophylaxis: Enoxaparin (Lovenox) 40 mg SQ daily Discharge Plan Likely home, timing uncertain given need for biopsy results to determine further treatment options/plan Consults Pulmonology Omar Kennedy MD 03/22/2017 10:19 Attending Attestation I saw and examined the patient with the resident. I discussed the patient with Dr. Kennedy and . I agree with and edited (in green) the findings and plan of care as documented in the noteabove. Shanel Boyle MD Internal Medicine Hospitalist 03/22/2017 20:53 * Kamilla Gomez. - 03/22/2017 0942 EDT CM noted to continue to follow notes in regards to patient's plan of care. Patient noted to have a probable new CA diagnosis. Will refer to CHILD DEVELOPMENT SPECIALIST for completion of oncology distress tool Patient continuing to require oxygen. CM to continue to follow through discharge. Kamilla Gomez BEHAVIORAL ANALYST CM #[id number]. * Aileen Williamson MD - 03/22/2017 0713 EDT Pulmonary Progress Note Service Date: 03/22/2017 Admit Date: 03/19/2017 1:48 Reason for Consult: Left sided pleural effusion and anterior mediastinal mass Requesting Provider: Shanel Boyle MD Subjective/Objective Subjective He states her breathing is better today. She is anxious about getting the biopsy done in knowing what she is dealing with. She has some chest discomfort at the chest tube insertion site. Review of Systems A ten point review of systems was performed. Pertinent positives are listed above, all others are negative. Objective Vital Signs Temp: [36.2 ??C (97.2 ??F)-36.8 ??C (98.2 ??F)] (), Heart Rate: [86 BPM-95 BPM] (), Resp: [13-30] (), BP: (104-124)/(62-77) (), SpO2: [87 %-96 %] () Physical Exam GEN: sitting upright at the edge of hospital bed in no distress HEAD: Normocephalic atraumatic EYES: Pupils are equal round and reactive to light and accommodation extraocular movements are intact THROAT: Oropharynx is clear oral mucosa is moist no pharyngeal exudates NECK: Supple, no jugular venous distention LYMPH: No cervical or supraclavicular lymphadenopathy CV: Regular rate and rhythm no murmurs rubs or gallops Chest: Normal symmetrical chest expansion and not using accessory muscles for breathing. Chest tubeinsertion site intact. RESP: bibasilar crackles and diminished breath sounds at both bases. ABD: Flat soft nontender nondistended bowel sounds are present EXT: Warm to touch capillary refill is less than 3 seconds, no cyanosis or clubbing. SKIN: Normal turgor no rashes NEURO: Alert and oriented ??3 no gross focal motor deficits noted cranial nerves II through XII grossly intact Medications Reviewed: No changes Current Facility-Administered Medications Medication Route Frequency ??? bisacodyl (DULCOLAX) suppository 10 mg rectal Daily PRN ??? DILTiazem (TIAZAC) ER capsule 240 mg oral DAILY ??? docusate sodium (COLACE) capsule 200 mg oral BID PRN ??? HYDROmorphone (DILAUDID) injection 0.2-0.5 mg intravenous Q4H PRN ??? metoprolol XL (TOPROL-XL) tablet 200 mg oral DAILY ??? Multivitamins with Minerals tablet 1 Tab oral DAILY ??? ondansetron (ZOFRAN-ODT) disintegrating tablet 4 mg oral Q4H PRN ??? polyethylene glycol 3350 (MIRALAX) packet 17 g oral DAILY ??? senna (SENOKOT) tablet 2 Tab oral Daily PRN Labs: Reviewed I have personally reviewed CBC: Lab Results Component Value Date WBC 8.50 03/22/2017 RBC 4.41 03/22/2017 HGB 14.1 03/22/2017 HCT 43.3 03/22/2017 MCV 98 03/22/2017 MCH 32.0 03/22/2017 MCHC 32.6 03/22/2017 PLT 178 03/22/2017 NEUTROABS 6.17 03/22/2017 BMP: Lab Results Component Value Date NA 136 03/22/2017 K 3.9 03/22/2017 CL 94 (L) 03/22/2017 CO2 32 03/22/2017 BUN 13 03/21/2017 CREATININE 0.67 03/21/2017 CALCIUM 8.7 03/22/2017 MG 1.8 03/20/2017 PHOS 2.6 03/20/2017 Coagulation: Lab Results Component Value Date PROTIME 13.8 (H) 03/19/2017 HEPHEFUFH 0.33 03/21/2017 Imaging Reviewed: No new imaging. Assessment/Plan Assessment 61-year-old female with a history of atrial fibrillation on apixaban, hypertension, obesity and factor V Leiden who presented with progressively worsening shortness breath. Initial workup revealed an8.8 x 4.8 x 8.8 cm lobulated anterior mediastinal mass, large left and small right-sided pleural effusions and mediastinal lymphadenopathy. Her admission was complicated by hypoxia and hypercapnia for which she was transferred to the MICU initially placed on BiPAP and then requiring intubation(03/19). She was extubated on 03/20. Her mental status has been altered the setting of suspected alcohol withdrawal. It has much improved after phenobarbital loading. Left-sided chest tube was placed that drained 1600 mL of straw-colored exudative fluid on 03/19. No bacteria seen in Gram stain, AFB and fungal cultures are pending. Cytopathology of the pleural fluid negative for malignant cells. Chest tubehas drained a total of 2300 mL and 20 mL in the last 24 hours. No air leak present. Chest tube to wa ter seal. A tissue diagnosis is required and he most favorable approach is percutaneous CT-guided biopsy for which she is scheduled today. 1.- Anterior mediastinal mass: Differential includes thymoma, thymic carcinoma, lymphoma or less likely germ cell tumor 2.- Bilateral pleural effusions left greater than right. Status post chest tube placement on left pleural effusion 3.-Acute hypoxic/hypercapnic respiratory failure Recommendations 1.- Percutaneous CT-guided biopsy today. 2.- Repeat chest x ray after procedure to decide whether the chest tube can be removed. Patient seen and discussed with Dr. Valero. Recommendations discussed with Dr. Kennedy. Aileen Williamson MD [place] Head Department of Pulmonary/Critical Care Pager [phone] Associated attestation - Maryann Valero MD - 03/22/2017 1211 EDT Attestation: I saw and examined the patient with the resident/fellow 03/22/2017. I agree with the findings and plan of care documented in the resident's/fellow's note. Maryann Valero MD 03/22/2017 12:11 * vEan Terry RN - 03/21/2017 9044 EDT Pt transferred from , arrived to unit at 2250. A&Ox3. All VSS. Pt sating 94% on 3L O2 NC. L chest tube intact/draining. Lung sounds clear but diminished on L side. at bedside. * Arin Almonte, PT - 03/21/2017 1542 EDT [facility] Therapy Acute Therapies [facility] [place] Physical Therapy Initial Evaluation Note Date of Service: 03/21/2017 Reason for Referral: Evaluate and treat Precautions: Activity as tolerated, Up ad alexandru and Ambulate SUBJECTIVE: It feels good to get up and moving. Pain: Location: left chest tube site Intensity: 4/10 (at present) Frequency: intermittent Quality: ache Aggravating factors: Mobility, transfers Alleviating factors: Rest, medication OBJECTIVE: PatientProfile: Patient is a 61 y.o. female admitted on 03/19/2017 secondary to LUNG MASS R06.00 Dyspnea, unspecified-R06.00[ICD-10-CM] C34.92 Malignant neoplasm of unspecified part of left bronchus or lung-C34.92[ICD-10-CM] The patient lives at [address] [place] [address] Per HPI: Brayan Jaramillo is a 61 y.o. female with history including atrial fibrillation on apixaban, factor V Leiden, who is a transfer from [facility]. Patient presented there today with 3weeks of shortness of breath. At the [facility] ED she was satting 94% on nasal cannula 3 L. Shehad an elevated d-dimer at 1.09 with there upper limit of normal being 0.5, and so CT PE protocol was obtained. Imaging study revealed large anterior mediastinal mass and moderately sized left pleural effusion with compressive atelectasis. There she had hemoglobin 17.5, white blood cells 5.4, sodium 135, potassium 4.1. INR 1.1. ECG there showed A. fib with rate of 86. She did receive Ativan 0.5 mg IV ??1 at OSH. Initial labs here showed normal sodium and potassium with elevated CO2 at 36. CBC revealed hemoglobin 16, no leukocytosis, normal platelets. On initial interview patient was very lucid and gave a clear history. She denied CP, diaphoresis, orthopnea, PND, F, night sweats, weight loss, chills, CARLOS, vision changes, cough, abd pain, n/v/d, blood in stool, numbness/tingling, lightheadedness/dizziness, dysuria, myalgia. Reported normal appetite. ?? She was continued on nasal cannula and then later in the night upon falling asleep she was noted todesat to 59%. CATS call was done. Patient's O2 saturation did recover to 97% after being placed on Ventimask. Plan was to continue to monitor patient's O2 sats on the floor with increased nasal cannula setting to 6 L. However, patient continued to desat and was noted to be more and more difficult to arouse. She was placed on Ventimask after D satting to the 80s on nasal cannula 6 L. Patient then required nonrebreather mask and took around 5 minutes to improve her O2 saturation to the 90s. She was difficult to arouse and confused. RT attempted ABG without success. VBG through a new vein was also difficult to complete. Her IV line for the heparin infusion was then used for a VBG with values being 7.14/121/45/57. Patient was then accepted by the ICU for transfer. ?? Never smoker, rarely drinks alcohol, no other illicit drugs or substance. ?? Review of Systems: 10 point review of systems performed, pertinent findings as per subjective/HPI. ?? PMHx: Atrial fibrillation on apixaban ?? Famliy History: daughter with Factor V Leiden, heterozygous ?? Surgical hx include laparotomy for ruptured appendix 2006. SECONDARY READ CHEST CT ??03/18/2017 10:57 PM Impression: 1. ??Suspicious lobulated anterior mediastinal calcified soft tissue mass measuring 8.8 x 4.8 x 8.8 cm suspicious for malignancy. Differential considerations include thymoma, thymic carcinoma, lymphoma, or less likely germ cell tumor. 2. ??Suspicious mediastinal lymphadenopathy for metastatic disease. 3. ??Large left and small right pleural effusion with multifocal enhancing left pleural and pericardial nodularity suspicious for metastatic disease. Home environment Lives:with family Caregiver Support: 24-hour assist Equipment Available: None Home Environment: house Home Layout: One story. 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 SOB (shortness of breath) ??? Lung mass Past: History reviewed. No pertinent past medical history. No past surgical history on file. Medications: Medications reviewed Arousal, Attention, and Cognition: Orientation: Oriented to person and place Able to follow one-step commands Cardiopulmonary: Vital Signs: Activity Heart rate (bpm) Blood Pressure (mmHg) Respiratory rate (breaths/min) Oxygen Sat/ Fractions of inspired Oxygen SPO2/FIO2 % Supine in bed 78 123/87 97% on 3L NC Sitting EOB Following ambulation/transfers 83 112/66 88-95% on 3L NC Integumentary/Anthropometric Characteristics: Palpation/Observation: Skin: left chest tube and dressing C/D/I Posture: No problem noted Range of Motion and Joint Integrity: Active Range of Motion: Within normal limits Upper Quarter: Left Upper Extremity: Right Upper Extremity: Cervical Spine: Lower Quarter: Left Lower Extremity: RightLower Extremity: Lumbar Spine: Muscle Performance: Strength: Formal resistive manual muscle testing not performed due to focus on functional activities at this time. Based on AROM and functional movement strength is as follows: Upper Quarter: Left Upper Extremity: > to 3/5 as demonstrated functionally Right Upper Extremity: > to 3/5 as demonstrated functionally Cervical Spine: > to 3/5 as demonstrated functionally Lower Quarter: Left Lower Extremity: > to 3/5 as demonstrated functionally Right Lower Extremity: > to 3/5 as demonstrated functionally Lumbar Spine: N/E Sensation, Reflexes, and Nerve Integrity: Light Touch Sensation: Upper Quarter:Intact C2-T1 Lower Quarter: Intact for lower extremities Neuromotor Function/Development: No problems noted Able to move all limbs in isolation Balance, Mobility, and Gait: Balance: Sitting: Patient can tolerate static sitting at edge of bed with no assistance or loss of balance Standing: Patient requires min contact assistance to maintain static standing with UE support on RW. Mobility: Mobility evaluation as follows: Sit to stand: min contact assist to RW Stand to sit: min contact assist with step swain cues for sequencing of UE's Gait: Ambulation: patient able to ambulate 90 feet with min contact assistance with use of rolling walker. During ambulation patient with no dizziness, lightheadedness or loss of balance. No increased painor shortness of breath reported. Gait quality: decreased brooke with decreased foot clearance bilaterally but no chris LOB. Initially difficulty with sequencing of RW, but able to correct with cueing. Self-Care, Home Management, Work, and Leisure: N/E at this time Outcomes: Please refer to individual sections for any outcome measures that were performed Informed Consent: The patient consented to the physical therapy evaluation. The patient agrees to and understands the physical therapy treatment plan and goals. Interventions Completed Today: Physical Therapy today at: 14:30 Total treatment time: 30 minutes. Timed code treatment minutes: 10 Intervention included: Therapeutic exercises: Patient was provided with verbal and demonstrated instruction and then performed exercise program as noted below: Sitting: x 10 reps Ankle pumps Long arc quad Marching (hip flexion) Standing with UE support on RW and min contact assist Marching x 10 reps Single leg stance 2 x 5 seconds Tandem standing 2 x 5 seconds All above with verbal cues for pacing and technique Patient/Family Education: Topic: Activity pacing/Energy conservation Assistive device/technique Balance Bed mobility Discharge planning Equipment use Exercise Gait Home program Positioning Precautions/protocol Role of therapy Safety Transfers Learner: patient Method: verbal and demonstration Barriers to Learning: none noted Outcome: requires assist and needs practice Team Communication: Discussed current level of mobility and recommendations with nursing for assistance with mobility and positioning outside of PT. ASSESSMENT: Physical Therapy Diagnosis: balance deficits, gait impairments, decreased tolerance to activity, impaired gas exchange Physical Therapy Prognosis: Patient was appropriate for skilled PT evaluation and intervention. Based on findings today this patient has good potential to make gains toward prior level of functioning. Patient is currently below baseline level of functional mobility and activity. Evidence supports that early and regular mobilization decreases risks of secondary complications related from immobility and improves overall systemic body function. Skilled intervention by PT with knowledge of disease pathophyslology is indicated to establish and progress mobility and exercise, and provide recommendations for staff and safe discharge planning. Patient is 61 year old with PMH A-fib and factor V leiden with current hospital admission for SOB, lung mass, large left pleural effusion, and acute respiratory failure. 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 Today, patient is requiring min contact assist for OOB mobility, with ongoing cueing due to confusionand sequencing difficulty. Patient's family is very supportive at bedside and able to provide 24/7 assist as needed. Patient is well below baseline level of function, but anticipate discharge home with family assist and home health therapy, pending progression of mobility. Ultimately, d/c plan is pending patient's progress, tolerance to activity, level of assist available/needed and clinical improvement. Will continue to follow for PT interventions and ongoing d/c planning as needed. Short-Term Goals: N/A ?? Long-Term Goals: 1-10 days Bed mobility: patient will be able to perform with modified independence demonstrating appropriate sequencing/motor planning. Transfers: patient will be able to perform bed to chair transfers with modified independence with use of appropriate assistive device. Ambulation: patient will be able to ambulate 100 feet on level surfaces with modified independence with use of appropriate assistive device. The patient and/or caregiver will be able to recall recommendations. All of the above mobility goals will be performed within vital sign parameters and oxygen saturation > 92%. The patient will be able to perform stairs with modified independence with home set up for rails. PLAN: Treatment/Intervention: Physical therapy will be provided by physical therapist and/or physical therapist sales assistants and salespersons when medically appropriate. Frequency: daily for 3-5 times per week as determined by the patient's medical stability, toleranceto activity and progression of functional activities Intensity: 15-30 minutes per session Duration: During hospitalization Interventions may include:Therapeutic exercises, Therapeutic activities and Gait training Patient/family education: Discharge planning, Equipment, Family training, Precautions, Recommendations, Role of physical therapy/rehabilitation, Safety Further Data: ambulation progression, stairs Recommended Discharge Destination: Home with family, pending progression of mobility Recommended Discharge Services: Home health physical therapy Recommended Equipment Needs: Rolling walker Other recommendations: No other consults recommended at this time Pager: [phone] Arin Almonte, PT 03/21/2017 15:43 * Kanchan Iglesias CSW - 03/21/2017 1322 EDT Initial Case Management/Social Work Assessment and Discharge Plan/Readmission Risk Assessment REASON FOR ADMISSION: 61 y.o. female with history including atrial fibrillation on apixaban, factorV Leiden, who presents with acute hypercapneic hypoxemic respiratory failure secondary to moderate L pleural effusion, anterior mediastinal lung mass, likely YESSENIA, and likely obesity hypoventilation syndrome. Patient understands reason for admission: Yes PATIENT CONTACT INFO VERIFIED: Yes - Royce, contact information on face sheet. PATIENT ADDRESS VERIFIED: Yes LIVING ARRANGEMENTS AND ACCESSIBILITY ISSUES: Living Arrangements: Spouse / significant other, Private residence Levels: 1 Stairs to enter: 3 Handicap access: None Bathroom located on bedroom level?: Yes What in home social supports are available to the patient? Spouse / significant other, Family member(s) Is 24/7 care available? Yes ADVANCED DIRECTIVES, POA &/or COLST IN PLACE: Healthcare Directive: Yes, patient has advance directive for healthcare treatment Type of Healthcare Directive: Health care treatment directive Copy in Chart: No, copy requested from family DIRECTIVES FOR FINANCES: Directive For Finances: No TRANSPORTATION: Transportation: Family, Self CULTURAL, ANABAPTIST and/or LANGUAGE factors affecting health care/discharge planning: Spiritual/Cultural Requests: None Any factors affecting health care/discharge planning?: No Insurance in Place: Yes Medical Insurance: Yes Type of insurance: Commercial insurance Commercial coverage: [facility] Referred to patient financial services: No DISCHARGE RISK ASSESSMENT: None of the above risks identified Total # selected above: Score: Zero Tentative plan to address the risk of re-hospitalization for those at HIGH MODERATE RISK: RAPT TOOL: Age: 50-65 Gender: Female Ambulation distance: 1-2 blocks Gait device: None Community Services: Home health, [facility], [facility]-none of one time a week Will you live with someone who will care for you?: Yes RAPT Tool Score: 10 Patient expects to be discharged to: Home SBIRT: SASQ (Single Alcohol Screening Question) How many times in the past year have you had 4 or more drinks in a single day?: Never How many times in the past year have you used an illegal drug or used a prescription medication fornon-medical reasons?: Never Intervention in place/initiated?: No, not indicated FUNCTIONAL STATUS: Activities patient requires assistance: None Assistive Device: None COMMUNITY RESOURCES/SUPPORTS: Primary Care Provider: Doctor Unknown PCP Verified: Yes ([facility], [facility]) Specialists: None Type of Home Health Services: None DME Provider: Pharmacy: No Pharmacies Listed Home Health: Other: POST HOSPITAL TRANSITION PLAN: DC home, DC needs TBD pending clinical course. Family will provide transportation home and 24/7 care. YANNA LAKE 03/21/2017 13:22 * Antonia Roger RN - 03/21/2017 0612 EDT Data: 55 yr old extubated yesterday currently on 4 lpm nasal cannula. The patient is receiving IV precedex and IV heparin. Chest tube in place on left side.The patient was confused only able to stateher name. When told she was in [place] the patient replied No I'm not. Why are you guys doing this to me? . The patients daughter remained at bedside and helped calm the patient. The patient vitals remained stable through the night. She refused turns multiple times but was other swain cooperative. Action: She remained on precedex and was given 3 doses of phenobarbital. Response: patient tolerated both precedex and phenobarbital. She was not combative through the night and was able to rest. Will continue to monitor. ANTONIA ROGER RN 03/21/2017 6:12 * Arin Parnell MD - 03/21/2017 0608 EDT MICU DAILY PROGRESS NOTE Admit Date: 03/19/2017 Hospital day: LOS: 2 days Date of Service: 03/21/2017 CC: Shortness of breath Summary of Last 24hrs: - Extubated to HFNC, then weaned to NC - Significant agitation overnight, requiring precedex gtt and IV Haldol Subjective: This morning Ms. Jaramillo is feeling much better, and she knows that she was feeling agitated overnight but this has largely resolved. She still is upset about being in the hospital, as she rarely sees doctors and it makes her nervous. No chest pain, no shortness of breath. No nausea or vomiting. Review of Systems As above. Objective: 03/19 2300 - 03/20 2259 In: 1190.5 [I.V.:840.5] Out: 2054 [Urine:1705] Blood pressure 98/59, temperature 37 ??C (98.6 ??F), resp. rate 22, height 176.5 cm (69.5), weight(!) 126.4 kg (278 lb 10.6 oz), SpO2 96 %. Body mass index is 40.56 kg/(m^2). Intake/Output Summary (Last 24 hours) at 03/21/17 0608 Last data filed at 03/21/17 0600 Gross per 24 hour Intake 685.17 ml Output 2055 ml Net -1369.83 ml Physical Exam GEN: lying in bed on NC, alert and oriented this morning HEENT: MMM CARD: tachycardic rate, no m/r/g RESP: diminished entry of air in left middle and lower lung kim, though improved from prior exam. L chest tube in place ABD: soft, non-tender, non-distended, normoactive bowel sounds with no rebound tenderness or guarding LE: trace LE edema to upper shins bilaterally NEURO: EOMI, face symmetric. Alert and oriented x4 : riley in place draining yellow/red urine PRN meds: bisacodyl 10 mg Daily PRN docusate sodium 200 mg BID PRN fentaNYL citrate (PF) 50 mcg Q1H PRN heparin 70 Units/kg (Adjusted) PRN Or heparin 35 Units/kg (Adjusted) PRN ondansetron 4 mg Q4H PRN Or ondansetron (ZOFRAN) IVPB 8 mg Q4H PRN papain-alpha amylase-cellulase 2-5 mL PRN polyethylene glycol 3350 17 g Daily PRN senna 2 Tab Daily PRN Scheduled Meds: DILTiazem 240 mg DAILY famotidine 20 mg BID haloperidol lactate metoprolol XL 200 mg DAILY Multivitamins with minerals + ferrous gluconate 15 mL DAILY NORepinephrine (LEVOPHED) in D5W 32 mcg/ml 250 ml Data Review: CBC: Recent Labs 03/19/17 0602 03/20/17 0305 03/21/17 030 WBC 7.40 6.95 6.73 HGB 15.9* 15.5* 15.0 HCT 51.0* 45.1* 44.3 MCV 106* 95 97 PLT 239 177 157 BMP: Recent Labs 03/19/17 0602 03/20/17 0305 03/21/17 0301 NA 139 132* 138 K 5.1* 3.8 3.8 CL 91* 95* 96 CO2 41* 29 34* BUN 9* 10 13 CREATININE 0.50* 0.52 0.67 MG -- 1.8 -- PHOS -- 2.6 -- SERGLU -- 98 -- Coags: Recent Labs 03/19/17 0602 PROTIME 13.8* INR 1.2* LFTs: Recent Labs 03/20/17 0305 ALT 21 AST 25 ALKPHOS 61 TBIL 1.6* ABGs: Recent Labs 03/19/17 0135 03/19/17 1144 PHISTAT 7.14* 7.48* PCOISTAT 121* 46* POISTAT 57* 73* POCTCO2 45* 36* BEART 6 10 POCFIO2 100 60 Radiology Images: Chest xray (03/21): Impression: Slight interval worsening of basilar opacities, otherwise stable appearing radiograph from one day prior. Assessment: Ms. Jaramillo is a 61 year old female initially transferred from OSH for new lung mass requiring further workup and found to have acute hypoxic hypercapnic respiratory failure requiring transfer to theMICU with intubation and left chest tube placement. She has tolerated extubation and is stable for transfer to the oncology service. Plan: Pulmonary: acute hypoxic hypercapnic respiratory failure, likely in the setting of presumed obesityhypoventilation versus undiagnosed YESSENIA and new lung mets in addition to left-sided pleural effusion - Stable on NC - Will leave L-sided pigtail drain in place for now, given ongoing drainage - F/u fluid studies, cytology (called pathology today; no obvious malignant cells at this point) ?? Cardiac: h/o afib (on apixaban), currently normotensive and rate controlled - Cont EMPLOYMENT SUPERVISOR diltiazem 240 mg XL - Cont EMPLOYMENT SUPERVISOR metoprolol 200 mg XL - continue heparin gtt. Holding EMPLOYMENT SUPERVISOR apixaban ?? Renal: no evidence of KALEIGH. Is mildly hyponatremic this morning with Na 132, likely due to poor po intake. - Cont to monitor w/ daily lytes, creatinine ?? GI Nutrition: - Advance diet this afternoon ?? Infectious Disease: no suspected infection at this time -Pleural fluid with neg gram stain Hematologic: hx of factor V leiden on eliquis and new discovery of anterior mediastinal mass concerning for malignancy - heparin gtt, holding EMPLOYMENT SUPERVISOR eliquis - will likely require biopsy of anterior mediastinal mass ?? Neurologic: Agitation yesterday in setting of suspected alcohol withdrawal, improved - received phenobarbital x3 - Continued on precedex for agitation; will try to wean today - Haldol IV PRN for agitated delirium ?? Endocrine - No acute issues ?? Lines -PIV ?? Prophylaxis: Heparin gtt Code status:Full code DISPO: Stable for transfer out of the MICU to the oncology service today Arin Parnell MD 03/21/2017 6:08 Internal Medicine PGY-2 Pager: [phone] Associated attestation - Andie Kim MD - 03/21/2017 2110 EDT Attestation: I saw and evaluated the patient on 03/21/2017. I agree with the findings and plan of care as documented in the resident's/fellow's note. Improve mental and resp status. CT w/ 250 cc drainage yesterday but appears to be decreasing today, can consider removal tomorrow. Pulm consult service w/ follow re: CT and bx plan for ant med mass. Andie Kim MD 03/21/2017 21:09 * Boy Thomas - 03/21/2017 0521 EDT MICU Medical Student Progress Note Date of Service: 03/21/2017 Admit Date: 03/19/2017 1:48 Hospital Day: LOS: 2 days Chief Complaint: SOB Patient Summary 61 YOF non-smoker with a PMH of AF on eliquis and Factor V Leiden who was transferred for further management of progressive fatigue and dyspnea in setting of newly diagnosed anterior mediastinal massand L-sided pleural effusion on chest imaging. While weaning BiPAP on the floor, she experienced significant desaturations and AMS, likely 2/2 CO2 narcosis,and was transferred to the MICU. She has a principal diagnosis of [id number] hypercapnic hypoxemic respiratory failure in setting of large left pleural effusion s/p L-sided chest tube. Extubated yesterday, s/p phenobarb x3, now on breathing comfortably on NC. 24-Hour Events - VINCENZO - extubated, weaning off precedex gtt - now breathing comfortably on 3L NC Subjective Feels better and has no specific complaints. Denies fevers, chills, dyspnea, pleuritic chest pain, and leg pain. Review of Systems Thorough review of systems complete and are normal except for as listed above. Objective Vital Signs Temp: [36.4 ??C (97.5 ??F)-37 ??C (98.6 ??F)] (), Heart Rate: [75 BPM-110 BPM] (), Pulse: -- (), Resp: [16-29] (), BP: (90-141)/(54-88) (), SpO2: [92 %-99 %] (), SpO2: 95 % Physical Exam Gen: Alert, talking in full sentences, appears tired but oriented to surroundings HEENT: NC/AT, MMM Neck: Supple, trachea midline, no JVD Lungs: Poor airflow, CTAB, no W/R/R heard CV: RRR, distant heart sounds with normal S1/S2, no murmur GI: Abdomen soft, obese, ND/NT : Riley in place producing dark yellow urine Ext: No edema, radial and pedal pulses 2+ and symmetric Skin: WWP, no rashes Neuro: A&O x3, bricklayer supervisor 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 intact, moves all four extremities spontaneously, no focal motor or sensory deficits appreciated Data Review I/Os: Intake/Output Summary (Last 24 hours) at 03/21/17 1336 Last data filed at 03/21/17 1100 Gross per 24 hour Intake 759.47 ml Output 1530 ml Net -770.53 ml UOP: 1.6 L/24 hrs Net since admission: -3 L Medications: Scheduled DILTiazem 240 mg DAILY metoprolol XL 200 mg DAILY [START ON 03/22/2017] Multivitamins with Minerals 1 Tab DAILY polyethylene glycol 3350 17 g DAILY PRN bisacodyl 10 mg Daily PRN docusate sodium 200 mg BID PRN heparin 70 Units/kg (Adjusted) PRN Or heparin 35 Units/kg (Adjusted) PRN ondansetron 4 mg Q4H PRN Or ondansetron (ZOFRAN) IVPB 8 mg Q4H PRN papain-alpha amylase-cellulase 2-5 mL PRN senna 2 Tab Daily PRN Labs: CBC: Recent Labs 03/18/17 2147 03/19/17 0602 03/20/17 0305 03/21/17 0301 WBC 6.18 7.40 6.95 6.73 RBC 4.80 4.82 4.75 4.57 HGB 16.0* 15.9* 15.5* 15.0 HCT 48.4* 51.0* 45.1* 44.3 MCV 101* 106* 95 97 MCH 33.3 33.0 32.6 32.8 MCHC 33.1 31.2* 34.4 33.9 PLT 219 239 177 157 NEUTROABS 4.95 6.23 -- 4.92 BMP: Recent Labs 03/19/17 0602 03/20/17 0305 03/21/17 030 NA 139 132* 138 K 5.1* 3.8 3.8 CL 91* 95* 96 CO2 41* 29 34* BUN 9* 10 13 CREATININE 0.50* 0.52 0.67 MG -- 1.8 -- PHOS -- 2.6 -- Coags: Recent Labs 03/19/17 06 PROTIME 13.8* INR 1.2* LFTs: Recent Labs 03/20/17 030 TBIL 1.6* ALKPHOS 61 AST 25 ALT 21 ABG: Recent Labs 03/19/17 0616 03/19/17 0901 03/19/17 1144 PHISTAT 7.03* 7.08* 7.48* PCOISTAT >130* >130* 46* POISTAT 81 114* 73* POCTCO2 <> <> 36* POCFIO2 60 60 60 Microbiology: Pleural fluid analysis - exudative; pH 7.32, LDH 434 (serum LDH 466) Gram stain - polys, no bacteria Cxs - pending Bacterial - no growth (prelim) Fungal - no growth (prelim) TB - pending Flow cytometry - pending Cytopathology - negative for malignant cells (prelim) Radiology: CXR 03/19 - large, free-flowing L pleural effusion decreased in volume though some mildly persistentwith L lung atelectasis, large anterior mediastinal mass CXR 03/21 - slight interval worsening of basilar opacities, otherwise stable when compared to prior Assessment 61 YOF lifelong non-smoker with a PMH of AF and Factor V Leiden on EMPLOYMENT SUPERVISOR eliquis who presented with new anterior mediastinal mass on chest imaging and found to be in acute hypoxic hypercapnic respiratory failure 2/2 large left pleural effusion requiring transfer to MICU for BiPAP. Now s/p L-sided chest tube with adequate output. Now breathing comfortably on 3 L NC with plan to discontinue precedex gtt and further w/u lung mass with IR consult once preliminary cytopathology results obtained. Active Issues: - Acute hypoxic hypercapnic respiratory failure, resolved - Left pleural effusion, exudative - Anterior mediastinal mass, unknown etiology Plan Pulm: [id number] hypoxic hypercapnic respiratory failure 2/2 large L-sided pleural effusion s/p diagnostic/therapeutic L-sided pigtail drain placement draining > 2 L straw-colored fluid. Chest imaging showing anterior mediastinal mass concerning for lymphoma vs thymoma vs lung cancer. Pleural fluid analysis exudative by Light's criteria. - s/p extubation to 3L NC on 03/20, now breathing comfortably on RA - f/u pleural fluid cultures (bacterial, fungal, TB), flow cytometry, cytology - anticipate pulling chest tube when < 100 cc output/day and no sign loculation on imaging - expect close outpatient f/u for likely PET CT scan - continue monitoring respiratory status Cardiac: H/o AF on EMPLOYMENT SUPERVISOR eliquis and rate control. AF with HR in 70s-80s. - continue dilt 240 mg po - continue toprol-xl 200 mg po - holding EMPLOYMENT SUPERVISOR eliquis Renal: Good UOP, no evidence of KALEIGH. - d/c riley catheter - strict I/Os - daily weights - follow lytes, BUN, Cr, Mg daily GI / Nutrition: No active issues. - advance diet - dulcolax 10 mg rectal prn - MV daily ID: Afebrile w/ no s/s active infection. - pleural fluid w/ negative gram stain - continue to monitor Heme: H/o factor V leiden on EMPLOYMENT SUPERVISOR eliquis w/ discovery of new lung mass concerning for malignancy. Hgb 15.9, likely 2/2 erythrocytosis in setting of chronic hypoxemia. Heparin therapeutic. PLT count normal. - heparin gtt - follow heparin levels - call IR for further w/u as an inpatient - obtain CT abd/pelvis before calling Endo: No active issues. - FSBGs daily while NPO Neuro / Psych: H/o ETOH abuse. S/p phenobarb x3 on 03/21. - weaned off precedex gtt 03/21 Lines / Tubes / Invasive: All remain in satisfactory position. ET tube positioned 3-4 cm proximal to paul. - PIV - Chest tube to suction, no air leak present - OG tube PPx: - heparin gtt - maintain SCDs, activity as tolerated Consults: None. Social/Family: Daughter at bedside. Clinical Condition: Improving. Code Status: Full. Boy William, Acting Key Punch Teacher Pager #[phone] * Ramses Ellis RN - 03/20/2017 1643 EDT Data: 61 y.o female extubated this am to [facility] and had to quickly transition her to NC as she continued to pull it off her face and wasn't letting anybody put it back on her while she yelled out, pt found with significant confusion, agitation and aggression towards family and staff post extubation. Pt oob to chair via lift, attempted to have pt stand at the bedside pt was able to stand but only for a couple seconds and with heavy 2 assist. Pt to chair for a couple hours, with family at her side.Pt was able to take ice chips and water without difficulty and took her po diltiazem without problems while sitting up in the chair. Pt required frequent reminders to stop pulling at tubes and wires,and was easily agitated with redirection. Pt returned to bed via lift and medicated for pain with iv fentanyl with good effect, pt resting comfortably until daughter came back into room and pt woke up, very agitated, screaming out, trying to get oob, pulling at wires required 5 mg IV haldol and precedex gtt restarted. Pt now settled again, resting comfortably with daughter at the bedside. Enc daughter to let her sleep and not engage her at this time. Action: precedex gtt continues Response: pt resting comfortably at this time, letting her rest and will cont to monitor for her safety RAMSES ELLIS RN 03/20/2017 16:43 * Calvin Desiremarry Moore - 03/20/2017 1353 EDT Spiritual Care Note Re: Brayan Jaramillo : 1955, AGE: 61 y.o. Room: [place] [id number] Brayan Jaramillo who is listed as None has received a visit from the Spiritual Care Department on 03/20/2017. Need/Assessment: ?? Met with pt's son-in-law in the waiting room and then with the and daughter in the pt's room. ?? Pt was not speaking but was able to hear and responded to the encouragements of the family. Intervention: ?? Informed them of our service and gave the information card. ?? Promised prayers Outcome: ?? The family welcomed support. Plan of Action: No Follow up necessary - Needs met x Continued Family Support x Continued Support from Weir Fisher following patient Make a Referral to: Continued Support with Volunteer Visits Connect with Community Supports Ask for a consult from: Other: Visit Initiated by: Referral by computer or phone message Time: End of Life / Comfort Care / Hospice Page direct contact by pager or staff person Time: 3 Level of Visit Services Provided: Anointing of Sick Prayer Communion Relaxation through music Assist Advanced Directives Integrative therapies Assist Decision Making [place] and Prayer at dying Exploration of Ethical issues Present at time of x Family Support Other Chaplain Hanh Downing 131 Phone [phone] Spiritual Care is available 24 hours a day. Office hours are 0800 to 1700 Tuesday through Tuesday and 0830 to 1630 Tuesday and Tuesday. [facility] and Spiritism chaplains are available 24 hours a day. For routine consults please call and leave a message with the Spiritual Care Office ([phone]) and patients will be seen within 24 hours. Forall emergent consults page the Orthodoxy or [facility] on-call [facility] through [facility] ([phone]). * Aiden He, RT - 03/20/2017 1135 EDT Respiratory Extubation Note Pre-procedure - The extubation order and correct patient verified. The procedure was coordinated with the RN. Procedure - The patient's oral pharynx and ETT were suctioned for Secretion Amount: Small SecretionColor: White and Secretion Consistency: Thin. A cuff leak was present. The patient was placed on 100% resuscitation bag and the ventilator placed in standby. The patient was extubated and placed on O2 Flow Rate (L/min): (S) 40 l/min O2 Device: (S) High flow nasal cannula. No stridor was noted and th e patient was able to produce voice. Comments Good cough, good voice. No respiratory distress noted at this time. Aiden He, 03/20/17 * Tom Borges, - 03/20/2017 1102 EDT MICU DAILY PROGRESS NOTE Admit Date: 03/19/2017 Hospital day: LOS: 1 day Date of Service: 03/20/2017 CC: Shortness of breath Summary of Last 24hrs: - Required intubation and placement of left-sided chest tube - Did not pass SBT this AM due to anxiety with short rapid breaths Subjective: This morning Ms. Jaramillo was initially intubated, opening her eyes on command. With initiation of precedex she became less agitated and was following commands. Denied any pain. Review of Systems Denies chest pains, abdominal pain, or shortness of breath. As outlined above. Objective: 03/19 07 - 03/20 0659 In: 1489.2 [I.V.:1082.7] Out: 3465 [Urine:1465] Blood pressure 115/77, temperature 36.4 ??C (97.5 ??F), temperature source Tympanic, resp. rate 20,height 176.5 cm (69.5), weight (!) 126.4 kg (278 lb 10.6 oz), SpO2 94 %. Body mass index is 40.56 kg/(m^2). Intake/Output Summary (Last 24 hours) at 03/20/17 1102 Last data filed at 03/20/17 0900 Gross per 24 hour Intake 1564.69 ml Output 3715 ml Net -2150.31 ml Physical Exam GEN: lying in bed, intubated, opens eyes on command HEENT: MMM CARD: tachycardic rate, no m/r/g RESP: diminished entry of air in left middle and lower lung kim ABD: soft, non-tender, non-distended, normoactive bowel sounds with no rebound tenderness or guarding LE: trace LE edema to upper shins bilaterally NEURO: EOMI, tongue protrudes in midline : riley in place draining yellow urine PRN meds: bisacodyl 10 mg Daily PRN fentaNYL citrate (PF) 50 mcg Q1H PRN heparin 70 Units/kg (Adjusted) PRN Or heparin 35 Units/kg (Adjusted) PRN ondansetron 4 mg Q4H PRN Or ondansetron (ZOFRAN) IVPB 8 mg Q4H PRN papain-alpha amylase-cellulase 2-5 mL PRN Scheduled Meds: DILTiazem 240 mg DAILY famotidine 20 mg BID metoprolol XL 200 mg DAILY Multivitamins with minerals + ferrous gluconate 15 mL DAILY NORepinephrine (LEVOPHED) in D5W 32 mcg/ml 250 ml Data Review: CBC: Recent Labs 03/18/17214603/19/1760103/20/17 030 WBC 6.18 7.40 6.95 HGB 16.0* 15.9* 15.5* HCT 48.4* 51.0* 45.1* MCV 101* 106* 95 PLT 219 239 177 BMP: Recent Labs 03/18/17214603/19/1760103/20/17 030 NA 138 139 132* K 4.5 5.1* 3.8 CL 93* 91* 95* CO2 36* 41* 29 BUN 8* 9* 10 CREATININE 0.48* 0.50* 0.52 MG -- -- 1.8 PHOS -- -- 2.6 SERGLU -- -- 98 Coags: Recent Labs 03/19/17 06 PROTIME 13.8* INR 1.2* LFTs: Recent Labs 03/20/17 030 ALT 21 AST 25 ALKPHOS 61 TBIL 1.6* ABGs: Recent Labs 03/19/17 0135 03/19/17 1144 PHISTAT 7.14* 7.48* PCOISTAT 121* 46* POISTAT 57* 73* POCTCO2 45* 36* BEART 6 10 POCFIO2 100 60 Radiology Images: - CXR 10 AM: ?? Impression: ?? Interval placement of a left chest tube with previously demonstrated ?? large left pleural effusion decreased in volume although residual ?? left pleural effusion persists. Low lung volumes and bibasilar ?? atelectasis. Redemonstration of large anterior mediastinal mass ?? projecting into the left paramediastinal region with adjacent left ?? lung atelectasis. Assessment: Ms. Jaramillo is a 61 year old female initially transferred from OSH for new lung mass requiring further workup and found to have acute hypoxic hypercapnic respiratory failure requiring transfer to theMICU for BiPAP therapy. Plan: Pulmonary: acute hypoxic hypercapnic respiratory failure, likely in the setting of presumed obesityhypoventilation versus undiagnosed YESSENIA and new lung mets in addition to left-sided pleural effusion. Requiring intubation on 03/19. -Now that she is less agitated on precedex and passing SBT will plan for extubation to [facility] -Will leave L-sided pigtail drain in place given 2L output past 24 hours -No need for repeat CXR this AM -F/u fluid studies, cytology ?? 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 Renal: no evidence of KALEIGH. Is mildly hyponatremic this morning with Na 132, likely due to poor po intake. -Cont to monitor w/ daily lytes, creatinine ?? GI Nutrition: -Hold TFs for likely extubation this morning -Advance diet this afternoon if protecting airway ?? Infectious Disease: no suspected infection at this time -Pleural fluid with neg gram stain Hematologic: hx of factor V leiden on eliquis and new discovery of anterior mediastinal mass concerning for malignancy -heparin gtt, holding EMPLOYMENT SUPERVISOR eliquis -primary team prior to transfer discussed tumor lysis labs; will follow up with Oncology service once stable from respiratory standpoint ?? Neurologic: a lot of anxiety this morning preventing successful SBT -D/C propofol -Start precedex to bridge to extubation ?? Endocrine -POCT glucose daily while NPO ?? Lines -PIV ?? Prophylaxis: Heparin gtt Code status:Full code DISPO: uncertain, continues to require MICU level care for hypoxia at this time Plan discussed with Dr. Borges, patient's family updated at bedside. Mariah Ortiz MD PGY-3, Internal Medicine Pager [phone] 03/20/2017 11:02 Attending attestation statement: I saw and examined the patient with the resident and agree with the findings and plans as documented, and as amended in blue. Clinical Condition: Brayan Jaramillo is a critically ill 61 y.o. female. Over the past 24 hours, therehas been a high probability of sudden, clinically significant or life threatening deterioration in the patient???s condition, which include the following diagnoses which I have managed: Active Problems: SOB (shortness of breath) Lung mass Exudative pleural effusion Acute respiratory failure Acute delirium ( possible alcohol withdrawal) Critical Care time was provided in the form of interventions to treat and prevent further life threatening deterioration of the patient???s condition including: Management of mechanical ventilation, Observation before/during/after ventilator weaning, Neurological monitoring, Management of pain and sedation and Updating family during rounds, and high complexity decision making regarding candidacy for extubation and need for (re) intubation and the need for critical procedures, such as: NA. My bedside involvement was required to monitor and direct the critical care that has been provided.Exclusive of procedures, my critical care time is 45 minutes. Tom Borges DO MICU Attending 03/20/2017 * Aiden He, RT - 03/20/2017 0925 EDT Respiratory Progress Note Indications for Respiratory therapy: Intubated Data Vitals: Heart Rate: 97 BPM, Resp: 20, SpO2: 94 % FIO2/O2 Device: O2 Flow Rate (L/min): 0 l/min, , O2 Device: Intubated, FIO2 %: 50 % RT Orders: HFNC 40L / 45% PSV 5/5 VC/AC 470 x 18 +8 Weaning Protocol Action/Events Respiratory events; SBT 5/5 50% tolerating fair, NIF -22.8, FVC 751 11:30: Extubated to HFNC 40L / 45%, tolerating well 13:40: NC 4L, Fio2 36% Response/Results Weaning and Toleration of treatments; Continue with orders, wean as tolerated. RT Virgilio 03/20/17 * Blanca Fowler, RT - 03/20/2017 0680 EDT Respiratory Progress Note Indications for Respiratory therapy: Intubated Data Vitals: Heart Rate: 90 BPM, Resp: 19, SpO2: 99 % FIO2/O2 Device: , O2 Device: Intubated, FIO2 %: 50 % RT Orders: VC/AC 470 x 18 +8 Weaning Protocol Action/Events Respiratory events; Patient on above settings overnight night With a PEEP of 5. Breath sounds were diminished and then became more coarse. Patient started to have desats into the mid 80's per RN report after a turn. Patient did qualify for a weaning trial. Patient immediately became anxious and taking very low tidal volume breaths 40ml-70ml. She desaturated to 79% and was very anxious. Placed back on VC/AC and increased PEEP to 8 due to wet breath sounds and desaturation. Response/Results Weaning and Toleration of treatments; Continue to wean as tolerated. Patient's daughter reports my mom is so anxious. Having this tube in is her worst nightmare. Patient's daughter asked if she could be at bedside for next weaning trial to help keep her mom calm. Blanca Fowler, RT 03/20/17 * Sylvia Cyr, RT - 03/19/2017 0066 EDT Respiratory Progress Note Indications for Respiratory therapy: intubated Data Vitals: Heart Rate: 81 BPM, Resp: 18, SpO2: 97 % FIO2/O2 Device: O2 Device: Intubated RT Orders: AC 470x18 +8 Action/Events Respiratory events; Pt intubated this morning for increasing somnolence, both morning gases showed PCO2 >130, even after increasing BiPAP settings. ETT advanced 2cm after CXR obtained. Pt was initially placed on 8cc/kg, but was having high PIPs and plateau pressure of 30 following lavage and suctioning (bronchodilators not indicated at this time), but was weaned to 7cc/kg. PIPs have reduced to low 30's. 1530- PEEP weaned to 5 Response/Results Weaning and Toleration of treatments; Wean settings as able RT DALLAS 03/19/17 * Sylvia Cyr RT - 03/19/2017 1232 EDT Respiratory Endotracheal Intubation or LMA placement This procedure occurred Date: 03/19/17 Time: 0930 Indication for advanced airway placement hypercapnic respiratory failure. The patient was pre-oxygenated via BiPAP . Intubation procedure performed by Serina Stovall MD. Airway type and size: 7.5 cuffed ETT. Airway placed with blade type and size: D- Blade under direct visualization of the vocal cords in 2 attempts. Post procedure lung sounds were noted bilaterally and without air sounds in the abdomen. Either colormetric or EtCO2 monitor were used to confirm placement. Airway taped at 23cm. Comments: After obtaining CXR, ETT advanced to 25cm RT DALLAS 03/19/17 * Blanca Fowler RT - 03/19/2017 0639 EDT Respiratory Progress Note Indications for Respiratory therapy: Large Left Pleural Effusion / BiPAP Data Vitals: Heart Rate: 87 BPM, Resp: 20, SpO2: 95 % FIO2/O2 Device: , , O2 Device: BIPAP, FIO2 %: 60 % RT Orders: BiPAP 18/8 Q4 Respiratory Evaluation Action/Events Respiratory events; Patient arrived to MICU after a CATs call. Patient placed on BiPAP 16/8 due to VBG. Repeat VBG drawn this morning and patient continues to be hypercarbic. Showed MD team results. Ordered to increase IPAP to 18. While patient is sleeping, her tidal volume was noted to be 200-350 ml on above settings. When she wakes up her tidal volumes are 500-600ml. Response/Results Weaning and Toleration of treatments; Team plans to tap the large left pleural effusion today. RT Stephanie 03/19/17 * Nakita Shen MD - 03/19/2017 0310 EDT CATS Note S: Second CATS call was done around 0200 to facilitate transfer to the MICU and start BiPAP on the medicine floor while pt was awaiting physical transport to the MICU. MICU team had already accepted pt for transfer. After first CATS call plan was to continue to monitor patient's O2 sats on the floor with increased nasal cannula setting to 6 L. However, patient continued to desat and was noted to be more and more difficult to arouse. She was placed on Ventimask after D satting to the 80s on nasal cannula 6 L. Patient then required nonrebreather mask and took around 5 minutes to improve her O2 saturation to the 90s. She was difficult to arouse and confused. RT attempted ABG without success. VBG through a new vein was also difficult to complete. Her IV line for the heparin infusion was then used for a VBG with values being 7.14/121/45/57. Patient was then accepted by the ICU for transfer. O: BP (!) 148/90 (BP Cuff Location: Left arm) Temp (!) 35.3 ??C (95.5 ??F) (Tympanic) Resp 15 Ht 176.5 cm (69.5) Wt (!) 126.4 kg (278 lb 10.6 oz) SpO2 95% BMI 40.56 kg/m2 Gen: altered mentation, moderate respiratory distress Chest: decreased lung sounds over L middle and lower lung field w/ increased dullness on percussion CV: irregular, S1/S2 normal, no m/r/g Abd: soft, NT, ND, +BS Extr: no SEBASTIAN Neuro: grossly intact strength and sensation PMH reviewed MAR reviewed Hospital course reviewed Data reviewed: WBC/Hgb/Hct/Plts: 6.18/16.0/48.4/219 (03/18 2147) Na/K/Cl/CO2: 138/4.5/93/36 (03/18 2147) BUN/Cr/glu/ALT/AST/amyl/lip: 8/0.48/--/--/--/--/-- (03/18 2147) A/P: Brayan Jaramillo is a 61 y.o. female with history including atrial fibrillation on apixaban, factor V Leiden, who developed acute hypercapneic hypoxemic respiratory failure secondary to moderate L pleural effusion, anterior mediastinal lung mass, likely YESSENIA, and likely obesity hypoventilation syndrome. Overall hemodynamically stable, plan for transfer to MICU for BiPAP with additional malignancy work-up. - escalation of care to MICU for BiPAP - continue heparin infusion for biopsy - will require IR biopsy of mediastinal mass - will require therapeutic and diagnostic thoracentesis - further plan per MICU and Onc - and daughter were present at the bedside and updated Tevin Larson MD [phone] 03/19/17 3:11 Attending Attestation I interviewed and examined the patient and personally reviewed laboratory studies, radiographic studies, and medical records. I discussed the case with the Medicine residents and agree with history, exam, assessment and plan of care as documented in the note above (with edits in Green). Nakita Shen MD Internal Medicine Hospitalist 03/19/2017 * Nakita Shen MD - 03/18/2017 3208 EDT CATS Note S: Called to the bedside at 23:32 03/18/2017 for increasing oxygen requirements. She was placed on non-rebreather after patient was sat 80s on 4 L NC. Noted to be as low as 59% while sleeping and nurses confirm this was with a good pleth. The patient denied any SOB. She was sleeping comfortably and confused why so many people are gathered around her. She denies chest pain, discomfort, lightheadness, dizziness, palpitations. She had arrived from OSH early today (2099) on 4L NC O2 at 93%. Her is at the bedside and endorses that she snores at night and was snoring while sleeping this evening. She denies a history of smoking, asthma or underlying lung disease. O: BP 114/70 (BP Cuff Location: Right arm, Patient Position: Semi fowlers) Temp 36 ??C (96.8 ??F)(Tympanic) Resp 20 Ht 176.5 cm (69.5) Wt (!) 126.4 kg (278 lb 10.6 oz) SpO2 93% BMI 40.56 kg/m2 On NRB - maintained saturations of 93-95% on 4-6L NC Gen: NAD Chest: breathing comfortably without tachypnea or respiratory distress, diminished lung sounds on left kim, decreased percussion on left side, clear on right side CV: RRR, S1/S2 normal, no m/r/g Abd: soft, NT, ND, +BS Extr: no SEBASTIAN Neuro: grossly intact strength and sensation Mental status: A+Ox3 PMH reviewed MAR reviewed Hospital course reviewed Data reviewed: WBC/Hgb/Hct/Plts: 6.18/16.0/48.4/219 (03/18 2147) Na/K/Cl/CO2: 138/4.5/93/36 (03/18 2147) BUN/Cr/glu/ALT/AST/amyl/lip: 8/0.48/--/--/--/--/-- (03/18 2147) I have personally reviewed CBC: Lab Results Component Value Date WBC 6.18 03/18/2017 RBC 4.80 03/18/2017 HGB 16.0 (H) 03/18/2017 HCT 48.4 (H) 03/18/2017 MCV 101 (H) 03/18/2017 MCH 33.3 03/18/2017 MCHC 33.1 03/18/2017 PLT 219 03/18/2017 NEUTROABS 4.95 03/18/2017 BMP: Lab Results Component Value Date NA 138 03/18/2017 K 4.5 03/18/2017 CL 93 (L) 03/18/2017 CO2 36 (H) 03/18/2017 BUN 8 (L) 03/18/2017 CREATININE 0.48 (L) 03/18/[address] chest - moderate to large pleural effusion on left side with compressive atelectasis. No evidence of PE. Large anterior mediastinal mass. A/P: 61 y.o.female with PMH significant for atrial fibrillation, factor v Leiden, who is a transferfrom OSH with several month history of SOB with recent CT chest discovery of mediastinal mass and left pleural effusion concerning for malignancy now with worsening acute hypoxic respiratory failure.Suspect hypoxia related to shunt with compressive atelectasis and likely undiagnosed sleep apnea. - thoracentesis likely in near future, tomorrow possible, NPO after midnight - CXR stat - large left sided pleural effusion - pending re read of OSH CT Chest - oxygen goal >92% - no urgent indication for transfer to ICU at this stage but will continue to monitor respiratory status - plan discussed with pt, pt's family ( and daughter at bedside), nursing and CATs team Amelie Shea MD R1, Pager [phone] [facility] Attending Attestation I interviewed and examined the patient and personally reviewed laboratory studies, radiographic studies, and medical records. I discussed the case with the Medicine residents and agree with history, exam, assessment and plan of care as documented in the note above (with edits in Green). Nakita Shen MD Internal Medicine Hospitalist 03/18/2017 * Linsey Rod, SEBASTIAN - 03/18/2017 2330 EDT Critical Access Treatment Support (CATS) Team Nursing Note (SBAR) Status of Event Upon Arrival:Patient resting in bed in no apparent distress on 100% NRB. Team Times:2330 Situation Reported:2326 Situation Upon Arrival:Patient had apparent desat while she was asleep, possibly pulled oxygen off,per patient was asleep and snoring. She appears in no distress and denies chest pain or shortness of breath, on 100% NRB. Code Status:Full Background:From OSH with new lung mass and pleural effusion, workup to be done and planning for thoracentesis in IR. Hourly Checks: CATS - Hourly Checks Routine Hourly Observation: Yes Vitals: Patient Vitals for the past 4 hrs: Temp Heart Rate Resp BP SpO2 03/19/17117 - - - - 94 % 03/19/17111 - - - - (!) 88 % 03/19/17108 - - - - (!) 85 % 03/19/17107 - - - - (!) 82 % 03/19/1799 - - - - (!) 85 % 03/18/17 2345 - - - - 93 % 03/18/176 36 ??C (96.8 ??F) 83 BPM 20 114/70 93 % 10/06/17 2320 - - - - (!) 59 % Respiratory: CATS - Respiratory O2 Device: Non-rebreather mask O2 Flow Rate (L/min): 15 l/min FIO2 %: 50 % Neurological:Alert and oriented, follows commands GCS:15 Skin: Pain:0 Cats - Recommendations:Transistion back to nasal cannula, maintain continuous oximetry monitoring. Cats - Handoff: CATS Team Members: Additional Detail: documented in this encounter H&P Notes * Kevin Flores PA-C - 03/22/2017 1349 EDT The preoperative history and physical which was performed within 30 days of this procedure has been reviewed and the clinically appropriate elements of the physical examination have been repeated. There are no changes to the documented history and physical or if so such changes are documented below JANEE Gonzalez 03/22/2017 13:49 Source Note - Aguilar Hughes MD - 03/18/2017 22:30 EDT Medicine Admission History & Physical Service Date: 03/18/2017 Admit Date: 03/18/2017 20:49 Primary Care Provider: Doctor Unknown Chief Complaint: JOAQUIN Jaramillo is a 61 y.o. female with history including atrial fibrillation on apixaban, factor V Leiden, who is a transfer from [facility]. Patient presented there today with 3 weeks ofshortness of breath. At the [facility] ED she was satting 94% on nasal cannula 3 L. She had an elevated d-dimer at 1.09 with there upper limit of normal being 0.5, and so CT PE protocol was obtained. Imaging study revealed large anterior mediastinal mass and moderately sized left pleural effusion with compressive atelectasis. There she had hemoglobin 17.5, white blood cells 5.4, sodium 135, potassium 4.1. INR 1.1. ECG there showed A. fib with rate of 86. She did receive Ativan 0.5 mg IV ??1 at OSH. Initial labs here showed normal sodium and potassium with elevated CO2 at 36. CBC revealed hemoglobin 16, no leukocytosis, normal platelets. On initial interview patient was very lucid and gave a clear history. She denied CP, diaphoresis, orthopnea, PND, F, night sweats, weight loss, chills,CARLOS, vision changes, cough, abd pain, n/v/d, blood in stool, numbness/tingling, lightheadedness/dizziness, dysuria, myalgia. Reported normal appetite. She was continued on nasal cannula and then later in the night upon falling asleep she was noted todesat to 59%. CATS call was done. Patient's O2 saturation did recover to 97% after being placed on Ventimask. Plan was to continue to monitor patient's O2 sats on the floor with increased nasal cannula setting to 6 L. However, patient continued to desat and was noted to be more and more difficult to arouse. She was placed on Ventimask after D satting to the 80s on nasal cannula 6 L. Patient then required nonrebreather mask and took around 5 minutes to improve her O2 saturation to the 90s. She was difficult to arouse and confused. RT attempted ABG without success. VBG through a new vein was also difficult to complete. Her IV line for the heparin infusion was then used for a VBG with values being 7.14/121/45/57. Patient was then accepted by the ICU for transfer. Never smoker, rarely drinks alcohol, no other illicit drugs or substance. Review of Systems: 10 point review of systems performed, pertinent findings as per subjective/HPI. PMHx: Atrial fibrillation on apixaban Famliy History: daughter with Factor V Leiden, heterozygous Surgical hx include laparotomy for ruptured appendix 2006. Social History Substance Use Topics ??? Smoking status: Never Smoker ??? Smokeless tobacco: Never Used ??? Alcohol use rare Family hx includes daughter w/ Factor V Leiden. Allergies Allergen Reactions ??? Penicillins Hives Objective BP (!) 148/90 (BP Cuff Location: Left arm) Temp (!) 35.3 ??C (95.5 ??F) (Tympanic) Resp 15 Ht176.5 cm (69.5) Wt (!) 126.4 kg (278 lb 10.6 oz) SpO2 95% BMI 40.56 kg/m2 Gen: AAOx4 on admission, NAD, obese HEENT: NC/AT, PERRLA, anicteric, EOMI, MMM, orophayrnx clear Neck: no JVD apprecaited, no cervical LAD, trachea midline, no thyromegaly CV: irregular, normal S1 and S2, no m/r/g Pulm: decreased lung sounds over L middle and lower lung field w/ increased dullness on percussion Abd: soft, NT/ND, normal bowel sounds, no rebound/guarding, no organomegaly appreciated Ext: WWP, no rashes or lesions, no clubbing, cyanosis, or pitting edema 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 Assessment/Plan Brayan Jaramillo is a 61 y.o. female with history including atrial fibrillation on apixaban, factor V Leiden, who presents with acute hypercapneic hypoxemic respiratory failure secondary to moderate L pleural effusion, anterior mediastinal lung mass, likely YESSENIA, and likely obesity hypoventilation syndrome. Overall hemodynamically stable, plan for transfer to MICU for BiPAP with additional malignancywork-up. A/P discussed further below. Acute hypercapneic hypoxemic respiratory failure secondary to moderate L pleural effusion, anteriormediastinal lung mass, likely YESSENIA, and likely obesity hypoventilation syndrome: 3 weeks of shortness of breath. OSH CT 03/18 revealed revealed large anterior mediastinal mass and moderately sized leftpleural effusion with compressive atelectasis. Could be lymphoma or primary lung cancer. Never smoker. She did received lorazepam 0.5 mg IV x1 at OSH. VBG with values being 7.14/121/45/57. - escalation of care to MICU for BiPAP - continue heparin infusion for biopsy - will require IR biopsy of mediastinal mass - will require therapeutic and diagnostic thoracentesis - IS and acapella - further plan per MICU and Onc A-fib - hold home apixaban - home metop XL 200 mg Daily - home diltiazem 240 mg Daily VTE Prophylaxis: Heparin infusion Code: Full Discharge Plan: Pending clinical course Diet: NPO Tevin Larson MD [phone] 03/19/17 3:09 I saw and examined the patient 03/18/2017. I have discussed the case with Dr. Larson and agree with the findings and plans documented above. Rapid clinical deterioration lead to MICU transfer after admission. Aguilar Hughes MD Attending Physician Internal Medicine Night Hospitalist * Aguilar Hughes MD - 03/18/2017 2230 EDT Medicine Admission History & Physical Service Date: 03/18/2017 Admit Date: 03/18/2017 20:49 Primary Care Provider: Doctor Unknown Chief Complaint: SOB LINDSAY Jaramillo is a 61 y.o. female with history including atrial fibrillation on apixaban, factor V Leiden, who is a transfer from [facility]. Patient presented there today with 3 weeks ofshortness of breath. At the [facility] ED she was satting 94% on nasal cannula 3 L. She had an elevated d-dimer at 1.09 with there upper limit of normal being 0.5, and so CT PE protocol was obtained. Imaging study revealed large anterior mediastinal mass and moderately sized left pleural effusion with compressive atelectasis. There she had hemoglobin 17.5, white blood cells 5.4, sodium 135, potassium 4.1. INR 1.1. ECG there showed A. fib with rate of 86. She did receive Ativan 0.5 mg IV ??1 at OSH. Initial labs here showed normal sodium and potassium with elevated CO2 at 36. CBC revealed hemoglobin 16, no leukocytosis, normal platelets. On initial interview patient was very lucid and gave a clear history. She denied CP, diaphoresis, orthopnea, PND, F, night sweats, weight loss, chills,CARLOS, vision changes, cough, abd pain, n/v/d, blood in stool, numbness/tingling, lightheadedness/dizziness, dysuria, myalgia. Reported normal appetite. She was continued on nasal cannula and then later in the night upon falling asleep she was noted todesat to 59%. CATS call was done. Patient's O2 saturation did recover to 97% after being placed on Ventimask. Plan was to continue to monitor patient's O2 sats on the floor with increased nasal cannula setting to 6 L. However, patient continued to desat and was noted to be more and more difficult to arouse. She was placed on Ventimask after D satting to the 80s on nasal cannula 6 L. Patient then required nonrebreather mask and took around 5 minutes to improve her O2 saturation to the 90s. She was difficult to arouse and confused. RT attempted ABG without success. VBG through a new vein was also difficult to complete. Her IV line for the heparin infusion was then used for a VBG with values being 7.14/121/45/57. Patient was then accepted by the ICU for transfer. Never smoker, rarely drinks alcohol, no other illicit drugs or substance. Review of Systems: 10 point review of systems performed, pertinent findings as per subjective/HPI. PMHx: Atrial fibrillation on apixaban Famliy History: daughter with Factor V Leiden, heterozygous Surgical hx include laparotomy for ruptured appendix 2006. Social History Substance Use Topics ??? Smoking status: Never Smoker ??? Smokeless tobacco: Never Used ??? Alcohol use rare Family hx includes daughter w/ Factor V Leiden. Allergies Allergen Reactions ??? Penicillins Hives Objective BP (!) 148/90 (BP Cuff Location: Left arm) Temp (!) 35.3 ??C (95.5 ??F) (Tympanic) Resp 15 Ht176.5 cm (69.5) Wt (!) 126.4 kg (278 lb 10.6 oz) SpO2 95% BMI 40.56 kg/m2 Gen: AAOx4 on admission, NAD, obese HEENT: NC/AT, PERRLA, anicteric, EOMI, MMM, orophayrnx clear Neck: no JVD apprecaited, no cervical LAD, trachea midline, no thyromegaly CV: irregular, normal S1 and S2, no m/r/g Pulm: decreased lung sounds over L middle and lower lung field w/ increased dullness on percussion Abd: soft, NT/ND, normal bowel sounds, no rebound/guarding, no organomegaly appreciated Ext: WWP, no rashes or lesions, no clubbing, cyanosis, or pitting edema 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 Assessment/Plan Brayan Jaramillo is a 61 y.o. female with history including atrial fibrillation on apixaban, factor V Leiden, who presents with acute hypercapneic hypoxemic respiratory failure secondary to moderate L pleural effusion, anterior mediastinal lung mass, likely YESSENIA, and likely obesity hypoventilation syndrome. Overall hemodynamically stable, plan for transfer to MICU for BiPAP with additional malignancywork-up. A/P discussed further below. Acute hypercapneic hypoxemic respiratory failure secondary to moderate L pleural effusion, anteriormediastinal lung mass, likely YESSENIA, and likely obesity hypoventilation syndrome: 3 weeks of shortness of breath. OSH CT 03/18 revealed revealed large anterior mediastinal mass and moderately sized leftpleural effusion with compressive atelectasis. Could be lymphoma or primary lung cancer. Never smoker. She did received lorazepam 0.5 mg IV x1 at OSH. VBG with values being 7.14/121/45/57. - escalation of care to MICU for BiPAP - continue heparin infusion for biopsy - will require IR biopsy of mediastinal mass - will require therapeutic and diagnostic thoracentesis - IS and acapella - further plan per MICU and Onc A-fib - hold home apixaban - home metop XL 200 mg Daily - home diltiazem 240 mg Daily VTE Prophylaxis: Heparin infusion Code: Full Discharge Plan: Pending clinical course Diet: NPO Tevin Larson MD [phone] 03/19/17 3:09 I saw and examined the patient 03/18/2017. I have discussed the case with Dr. Larson and agree with the findings and plans documented above. Rapid clinical deterioration lead to MICU transfer after admission. Aguilar Hughes MD Attending Physician Internal Medicine Night Hospitalist documented in this encounter Procedure Notes * Kevin Flores PA-C - 03/22/2017 1444 EDT IR Procedure Note Procedure: US guided mediastinal mass biopsy Date Performed: 03/22/2017 Radiologist/Design Draftsman(s): MD Theo/SIOMARA Flores Sedation/Anesthesia: Versed 0 Fentanyl 25 mcg Time Out: A time-out was completed prior to procedure verifying correct patient, procedure, site, positioning, and special equipment if applicable. Estimated Blood Loss: Unless otherwise noted, there was no blood loss, specimens removed, cultures obtained, or drains retained. Specimens: FNA x multiple and 20 ga cores Fluoroscopy Time: See dictated procedure note Contrast Volume: none Complications: none Condition: stable Post Procedure Diagnosis: Mediastinal mass Findings: Cells for cytologic diagnosis Recommendations: F/u cytology JANEE Gonzalez 03/22/2017 14:44 * Tom Borges DO - 03/19/2017 1129 EDT PEDIATRIC PROCEDURE NOTE Title of Procedure: Chest Tube Placement Date Performed: 03/19/2017 Time Performed: 1000 Performed by: Serina Arenas MD, performed the procedure under the supervision of Dr. Borges who was present during the entire course of the procedure. Indications: Therapeutic drainage of fluid on the left Consent: Verbal consent not obtained as procedure performed emergently Type of Anesthesia/Sedation: Patient already sedated secondary to critical condition Fluids Given: See I&O Unless otherwise noted, there was no blood loss, specimens removed, cultures obtained, or drains retained.. Time Out: A time-out was completed verifying correct patient, procedure, site, positioning, and special equipment if applicable. Procedure Technique/Description of Procedure: Brayan was prepped and draped in the usual sterile fashion. A 24 malaysian chest tube was inserted without difficulty using Seldinger technique at the mid- axillary line on the left at the 5 intercostal space. The chest tube was sutured and secured to the chest wall and placed to suction. Chest tube drained 1600 ml of Straw colored fluid Chest x-ray was obtained following the procedure revealing chets tube in appropriate position with near complete drainage of fluid Post Procedure Diagnosis and Findings: Same as Indications and/or Provisional Diagnosis Complications: None Serina Stovall MD 03/19/2017 11:29 Attending attestation: Dagoberto was present during the entire procedure. Tom Borges DO 03/19/2017 17:01 * Tom Borges DO - 03/19/2017 1122 EDT ADULT PROCEDURE NOTE Title of Procedure: Endotracheal Intubation Date Performed: 03/19/2017 Time Performed: 1000 Performed by: Serina Arenas MD, performed the procedure under the supervision of Dr. Borges who was present during the entire course of the procedure. Indications and/or Provisional Diagnosis: Impending respiratory failure/Respiratory failure Consent: Verbal consent not obtained as procedure performed emergently Type of Anesthesia/Sedation: Ktamine 100 and Rocuronium 100 and Versed 1 mg Fluids Given: See I&O Unless otherwise noted, there was no blood loss, specimens removed, cultures obtained, or drains retained. Time Out: A time-out was completed prior to procedure verifying correct patient, procedure, site, positioning, and special equipment if applicable. Procedure Technique/Description of Procedure: Brayan was pre-oxygenated. Using a 4 Steve laryngoscope blade an attempt was made at intubation initially with direct visualization then using video but the airway was very anterior and only the top of the eppiglotis was seen. Another attempt was made with bougie but had difficulty advancing. Mac was taken out and pt was bagged for 2 minutes with sats in the high 90's the entire time. Another attmep was made with a #4 glidescope and a 7.5 cuffed endotracheal tube was placed under video visualization to 23 cm at the teeth after 1 attempt(s). Bilateral breath sounds were heard without air sounds in the abdomen. Clinical exam as well as an end-tidal monitor were used to confirm tracheal placement of the ET tube. Chest xray obtained following intubation revealed ETT 2 cm above aortic notch so will be advance by2 cm. Post Procedure Diagnosis and Findings: Same as Indications and/or Provisional Diagnosis Complications: As stated above Serina Stovall MD 03/19/2017 11:22 Attending attestation: I was present during the entire procedure. 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 CONSULT REQUESTED BY: Shanel Boyle MD HISTORY OF PRESENT ILLNESS: Patient is a 61 y.o. female with history including atrial fibrillation on eliquis, hypertension whowas transferred from [facility] on 03/18/2017. Patient presented to outside hospital with3 weeks history of shortness of breath. In the emergency department of [facility] she was saturating 94% on 3 L nasal cannula with elevated d-dimer so a CT PE protocol was obtained which showed large anterior mediastinal mass and moderately sized left pleural effusion with atelectasis. She was started on heparin infusion and was transferred here for further management and workup. During her hospitalization she continued on nasal cannula but later on found to have O2 sat of 59%.CATS was called and her saturation recovered to 97% on Ventimask. Patient continued to desaturate and was difficult to arouse. She was found to have hypoxemic and hypercarbic respiratory failure and because of her change in mentation she was transferred to ICU for further care. She was later intubated and chest to was placed for her left-sided pleural effusion. She was successfully extubated lateron and was transferred back to the floor to medical oncology service. She underwent anterior mediastinal mass biopsy which was found to be poorly differentiated carcinoma. She also underwent staging scan with CT abdomen pelvis which showed left 2.5 cm breast mass. Of the note, her pleural fluid didnot show any malignant cells. According the patient prior to her getting short of breath she was fully functional with optimal level of activity. 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 She denies any fever, chills, sweats, night sweats, chest pain, shortness of breath at this time, cough, nausea, vomiting, diarrhea, constipation, hematuria, dysuria, melena, hematochezia or hematemesis, weakness or numbness of anypart of her body, weight loss. She has some pain in her left chest at the site of chest tube. She has very good functional status. [facility] History reviewed. No pertinent past medical history. No past surgical history on file. CURRENT MEDICATIONS PRIOR TO ADMISSION MEDICATIONS Current Facility-Administered Medications Medication Route Frequency ??? acetaminophen (TYLENOL) tablet 1,000 mg oral Q6H PRN ??? bisacodyl (DULCOLAX) suppository 10 mg rectal Daily PRN ??? DILTiazem (TIAZAC) ER capsule 240 mg oral DAILY ??? docusate sodium (COLACE) capsule 200 mg oral BID PRN ??? enoxaparin (LOVENOX) injection 40 mg subcutaneous QHS ??? metoprolol XL (TOPROL-XL) tablet 200 mg oral DAILY ??? Multivitamins with Minerals tablet 1 Tab oral DAILY ??? ondansetron (ZOFRAN-ODT) disintegrating tablet 4 mg oral Q4H PRN ??? oxyCODONE (ROXICODONE) immediate release tablet 5-10 mg oral Q4H PRN ??? polyethylene glycol 3350 (MIRALAX) packet 17 g oral DAILY ??? senna (SENOKOT) tablet 2 Tab oral Daily PRN Prescriptions Prior to Admission Medication Sig Dispense Refill Last Dose ??? apixaban (ELIQUIS) 5 mg tablet Take 5 mg by mouth 2 times daily. ??? DILTiazem (TIAZAC) 240 mg SR capsule Take 240 mg by mouth daily. ??? metoprolol XL (TOPROL-XL) 200 mg tablet Take 200 mg by mouth daily. ALLERGIES Allergies Allergen Reactions ??? Penicillins Hives SOCIAL HISTORY FAMILY HISTORY Social History Substance Use Topics ??? Smoking status: Never Smoker ??? Smokeless tobacco: Never Used ??? Alcohol use Not on file No family history on file. REVIEW OF SYSTEMS: A complete 10 point review of systems was performed and is otherwise negative. OBJECTIVE: BP 118/71 (BP Cuff Location: Left arm, Patient Position: Sitting) Temp 36.6 ??C (97.9 ??F) (Tympanic) Resp 16 Ht 176.5 cm (69.5) Wt (!) 126.4 kg (278 lb 10.6 oz) SpO2 96% BMI 40.56 kg/m2 ECOG 0 General appearance: Awake, alert, oriented x3, NAD. Skin: Skin color, temperature, turgor normal. No rashes or lesions. Head: Normocephalic, without obvious abnormality, atraumatic Eyes: conjunctivae/corneas clear. PERRL, EOM's intact. Neck: supple, symmetrical, trachea midline, no adenopathy. Breast: Left breast mass palpable, without any axillary adenopathy. B/L breasts are fibronodular. Lungs: clear to auscultation bilaterally but decreased. Heart: irregularly irregular, S1, S2 normal, no murmur, click, rub or gallop Abdomen: soft, non-tender, non-distended; bowel sounds present. Extremities: atraumatic, no edema, clubbing, cyanosis, no discoloration. Neuro: CN II - XII grossly intact. Data Review Recent Labs 03/22/1739 03/23/1747 03/24/17 0555 WBC 8.50 6.20 5.31 HGB 14.1 14.5 14.3 HCT 43.3 44.3 44.1 PLT 178 188 208 Recent Labs 03/22/1739 03/23/17 0547 03/24/17 0555 NA 136 134* 138 K 3.9 4.0 4.4 CL 94* 92* 94* CO2 32 31 34* Imaging: CT ABDOMEN, PELVIS W CONTRAST ??03/23/2017 7:53 PM ?? SIGNS AND SYMPTOMS/COMMENTS: ?? Neoplasm: abdomen, other primary, recurrence, suspected/known ?? TECHNIQUE: CT abdomen and pelvis was performed with the administration of intravenous and oral contrast. Coronal and sagittal multiplanar reconstructions were generated. ?? COMPARISON: CT chest 03/18/2017. No prior abdominopelvic imaging available for comparison. ?? FINDINGS: Lower chest: There is a 2.5 cm mass in the left breast tissue. There is nodular soft tissue partially imaged in the paracardial fat. A left pleural drain is partially imaged, and the left pleural effusion is markedly decreased in size from prior. There is a small right pleural effusion with associated passive atelectasis. Aortic valve calcifications are present. There is coronary atherosclerosis. ?? Hepatobiliary: There are ill-defined areas of heterogeneous hypoattenuation in the liver, for example in the right hepatic lobe axial #50. The gallbladder is normal and there is no biliary ductal dilatation. ?? Spleen, pancreas, adrenal glands: Normal. ?? Kidneys, ureters, bladder: The kidneys enhance symmetrically. There is no hydroureteronephrosis nor urolithiasis. There is a focus of air in the urinary bladder, presumably iatrogenic in nature. The bladder is otherwise normal in appearance. ?? Uterus, ovaries: Multiple partially calcified uterine fibroids are present, including a pedunculated fibroid to the right. The ovaries appear normal. ?? Bowel: There is no evidence of bowel obstruction or inflammation. ?? Peritoneal cavity / Subperitoneal space: There is no free intra-abdominal air, free fluid or fluid collection. ?? Lymphovascular: Multiple small intraperitoneal lymph nodes are present, including an elongated left para-aortic node. Several lymph nodes show fatty infiltration. There is scattered calcific atherosclerotic disease. ?? Abdominal wall: Multiple ventral abdominal wall hernias are seen, one containing a loop of transverse colon, and 2 others containing loops of small bowel. There is no evidence of bowel strangulation, though evaluation of bowel perfusion is limited by the presence of enteric contrast. There is significant body wall edema and thickening of the skin of the inferior pannus. ?? Musculoskeletal: There is a suspicious lytic lesion in the T11 vertebral body, as well as a mixed lytic and sclerotic lesion in the L2 vertebral body. There are degenerative changes throughout the lower thoracic and lumbar spine. No fracture is identified. Sclerosis of the femoral head noted bilaterally without flattening. ?? IMPRESSION: 1. A 2.5 cm mass in the left breast is highly concerning for malignancy. Recommend diagnostic workup with mammogram and ultrasound. 2. Soft tissue nodularity in the paracardial fat better imaged on recent chest CT is concerning for metastatic disease. 3. At least 2 suspicious osseous lesions are identified, one in the T12 vertebral body and the other in the L2 vertebral body, both concerning for osseous metastases. 4. Ill-defined areas of hypoattenuation in the liver are nonspecific. If the presence of hepatic metastases would alter management, this could be further evaluated with contrast-enhanced MRI. 5. Decreased size of left pleural effusion following left pleural drain placement. There is a small right pleural effusion. 5. Multiple bowel containing ventral hernias without evidence of bowel obstruction. 6. Additional chronic and incidental findings as described above. ?? Assessment: 61 y.o. female with past medical history of hypertension, obesity and atrial fibrillation on eliquis who presented on 03/18/2017 from an outside hospital with 3 weeks history of progressive shortness of breath with CT chest revealing a moderate-sized pleural effusion and anterior mediastinal mass now status post chest tube placement. During her hospitalization she had a complicated course with hypoxic and hypercarbic respiratory failure which has improved now. She remained hemodynamically stableon nasal cannula with biopsy of anterior mediastinal mass whose preliminary read showing poorly differentiated carcinoma of unknown origin. Patient underwent staging CT scan of her abdomen pelvis which showed left breast mass of 2.5 cm size and also metastatic lesion in T12 and L2 vertebra. Given her current anterior mediastinal mass and metastatic disease in her spine as well as mass in her breast looks like that she might be having 2 different primary cancers including thymomic carcinoma vs undifferentiated carcinoma of unknown primary and breast cancer. [facility] [place] it was decided to get a biopsy of her mass in her breast. We will discuss her case in the [facility] [place] [facility] on Tuesday03/28/2017. We have also asked our pathology colleagues for further staining so that we can have a better answer to the origin of the cancer. We will also do genomic testing as well as Foundation 1 testing. We will also talk to our pathology colleagues if they have enough sample to run those test if not be might have to get another biopsy. We have talked to the patient regarding her current diagnosis as well as the findings of CT scan abdomen pelvis. We will also obtain a PET scan. Once we will have a final dianosis we will treat her. We have informed her that it is a fairly aggressive cancer and if she continued to improve we can plan for chemotherapy on out patient basis if her condition does not improve we will have to give first cycle of chemotherapy in the hospital. Recommendations: 1. Poorly differentiated carcinoma of unknown origin: We will discuss her case in lung [facility] [place]. D/W pathology, her current specimen is not enough for Foundation 1 testing. If her breast biopsy comes back to be the same tumor, we would send that for foundation one, otherwise, will need another biopsy of the mediastinal mass vs bone met. If her breast mass turns out to be ER/OK positive breast cancer, I am also concerned that the bone mets could be related to that, though the consensus at [facility] was it is more likely the CUP, given no axillary adenopathy, though still [facility]. PET scan to be done as out patient (as it would be difficult to get it approvd as in patient). Awaiting final report from surgical pathology. 2. Breast mass: We will obtain core vs fine-needle aspiration biopsy of her breast mass to figure out if this is a primary breast cancer versus a metastatic lesion to the breast (will check with pathology). It is less likely to be a met, though possible, since majority of the lesions in the breast are primary breast cancers. 3. If she continued to improve we can plan for chemotherapy on out patient basis, however, if her condition does not improve and she continues to put out significant quantities of fluid from the chest tube we will need to give first cycle of chemotherapy in the hospital. Patient was seen/discussed with the attending Dr. Genoveva Gibson MD PGY 4 Hem/onc Pager #[phone] Attestation: I saw and examined the patient with the resident/fellow 03/24/2017. I agree with the findings and plan of care documented in the resident's/fellow's note. Clarence Tomas MD 03/24/2017 15:07 documented in this encounter Miscellaneous Notes * Coding Query - Shanel Boyle MD - 03/27/2017 1305 EDT CODING QUERY - PLEASE EDIT Physicians: Please document your response by deleting the three asterisks and editing the message. Click Sign to sign the note and send your response. In order to ensure that the reported codes best reflect your patient???s condition, further clarification is required. Please consider the clinical presentation, workup, and treatment for this patient when responding. The patient???s chart can be reviewed electronically in [facility]th sense. A mediastinal mass biopsy and left breast biopsy were performed for this patient during this admission. Official Coding Guidelines for inpatient visits prohibit assigning a diagnosis based on the pathology report without supporting documentation from the attending of record. See the pathology report below. Please indicate final diagnosis for the biopsy of the mediastinal mass: _x__ Thymic epithelial neoplasm with neuroendocrine features. ___ other ___ cannot be clinically determined Can you please indicate if this is: ____ a primary neoplasm __x__ a metastatic neoplasm with unknown primary Please indicate final diagnosis for the biopsy of the left breast biopsy: ___??Benign breast tissue with nodular fibrocystic changes including sclerosing adenosis and cyst formation. ___ other _x__ cannot be clinically determined Name: ? BRAYAN JARAMILLO ? Accession #: ? [id number] ? : ? 1955 (Age: 61) ??F ?Collect Date: ? 03/22/2017 ? Location: ? [facility] ? Receive Date: ? 03/22/2017 ? Provider: KEVIN HARRIS Copy to: SHANEL PEREZ MD ? Final Pathologic Diagnosis: MEDIASTINUM, MASS, BIOPSY: - Thymic epithelial neoplasm with neuroendocrine features. Final Pathologic Diagnosis: BREAST, LEFT, 9 O'CLOCK, 1 CM FROM NIPPLE, ULTRASOUND GUIDED CORE BIOPSY: - ?Benign breast tissue with nodular fibrocystic changes including sclerosing adenosis and cyst formation. ??See comment. If you have problems completing this form, please call the Help Desk at [phone]. If you have any questions about the content of this query, please contact Radha Palacios, [facility], [facility]. Wool Brusher, [email or web address]. * Plan of Care - Hoang Thomason RN - 03/27/2017 1305 EDT Problem: Daily Care Plan Goals Goal: Care Plan Documentation Outcome: Completed Date Met: 03/27/17 03/27/17 0824 Care Plan Focus Area of Focus Discharge Plan Goal This Shift pt will verbalize understanding of discharge plan today Focus: Discharge D: Pt noted with discharge orders to home with follow up with PCP and hem/onc clinic. A: Reviewed discharge paperwork and prescriptions with patient and her . No IV Access. Belongings collected and sent home with patient. R: Pt verbalized understanding of discharge paperwork and denied further questions. Pt left floor via WC. Hoang Thomason RN 03/27/2017 13:17 * Plan of Care - Mena Adams RN - 03/27/2017 0459 EDT Problem: Daily Care Plan Goals Goal: Care Plan Documentation Outcome: Not Met This Shift 03/26/17 2110 Care Plan Focus Area of Focus Respiratory Goal This Shift pt will maintain O2 sats >90% on RA Data: pt care assumed at 1900, A&Ox3, no signs of respiratory distress on RA, denies SOB, N/V. Pt recently had her chest tube removed. L flank drsg clean/dry/intact. C/o mild pain described as tightness around the site. Pt is eager to discharge home tomorrow Overnight while pt was sleeping her O2 sats dropped to 85% on RA, sustaining in the mid 80's. Action: PRN medicated with Oxycodone (see MAR). Pt's sats appear to drop only while sleeping, 1L NCplaced. Pt expressing anxiety about the need for O2, worried that she will not be able to go home on Tuesday. She notes that the MDs have mentioned she might have YESSENIA & she is hopeful she can follow up outpt Response: pt resting comfortably the majority of the night. O2 sats climbed steadily with 1L NC, sating mid 90's now. Will continue to monitor & intervene as necessary 0600 pt very distraught this morning, very upset about needing 1L NC O2 overnight; pt burst into tears stating they can't keep me here! I Just want to go home! she is very concerned she will not beable to go home & see her 2 children & grandchildren over something silly like 1L of oxygen. pt's consoled her. Pt encouraged to utilize her IS, ambulate & await CXR results (patrick nned for this morning) & to go from there Mena Adams RN 03/27/2017 4:47 * Plan of Care - Ingrid Granger RN - 03/26/2017 1623 EDT Problem: Daily Care Plan Goals Goal: Care Plan Documentation 03/26/17 0900 Care Plan Focus Area of Focus Respiratory Goal This Shift pt will get chest tube out this shift Data: pt with left sided chest tube to suction while at bedside and to water seal with ambulation. No output from chest tube this shift. Pt tolerating ambulation in hallway with well. Action: pt had CXR this afternoon. Pt waiting for pulm to pull chest tube at present. Response: pt in NAD, sating 92-93% on room air. Will continue to monitor. Ingrid Granger RN 03/26/2017 16:20 * Plan of Care - Mena Adams RN - 03/26/2017 0884 EDT Problem: Daily Care Plan Goals Goal: Care Plan Documentation Outcome: Ongoing 03/25/172125 Care Plan Focus Area of Focus Pain/ Comfort Goal This Shift pt will report pain as controlled Data: pt transferred from [place] [id number] around 2129, A&Ox3, pt denies SOB, N/V, no signs of respiratory distress on 1L NC, Chest tube connected to suction, no signs of an air leak, pt & report decreased output & they are hopeful for CT removal soon. Pt often has 5-6/10 pain that she describes as stiffness around chest tube insertion site. Recent L breast biopsy site clean, dry, intact Action: PRN medicated with Oxycodone and Tylenol (see MAR). Pt does not like narcotics, stating they make her feel weird. multiple pillows utilized for comfort & support Response: pt's VSS overnight, resting comfortably the majority of the evening, reports that the PRNmeds help reduce her pain to tolerable levels. Will continue to monitor & intervene as necessary Mena Adams RN 03/26/2017 4:25 * Plan of Care - Viola Sigala RN - 03/25/2017 1401 EDT Problem: Daily Care Plan Goals Goal: Care Plan Documentation Outcome: Ongoing 03/25/17 0914 Care Plan Focus Area of Focus Respiratory Goal This Shift pt O2 sat will remain above 90% Data: Pt admitted with a mediastinal mass Action: Pt went for breast mammogram and biopsy today. Placed duoderm dressing to pts ears to prevent irritation from nasal cannula tubing. Pt ambulates with contact guard assistance. Response: Pts O2 sat remained above 90% on 1L nasal cannula today. Viola Sigala RN 03/25/2017 13:58 * Plan of Care - Mike Maloney RN - 03/25/2017 0513 EDT Problem: Daily Care Plan Goals Goal: Care Plan Documentation Outcome: Ongoing 03/25/17 0000 Care Plan Focus Area of Focus Respiratory Goal This Shift O2 Sat.>93% Data: Pt rated pain 5/10 at the begining of this shift, located below the chest tube site, on 1l Oxygen via NC, less dyspneic and would like to sleep Action: Oxycodone 5 mg given per Mar, frequent monitor of O2 Sat and breathing status Response: O2 Sat maintained >93% this shift and pt slept well. We will continue to monitor. Mike Maloney RN 03/25/2017 5:05 * Plan of Care - Evelina Soto RN - 03/24/2017 2311 EDT Problem: Daily Care Plan Goals Goal: Care Plan Documentation Outcome: Ongoing 03/24/17 1643 Care Plan Focus Area of Focus Pain/ Comfort Goal This Shift pain will be managable Data: Pt rates pain Left lateral 11/20. Action: 5mg Oxycodone requested. Tylenol. Response: Pain remains 10/20. States she will wait till next time for Oxycodone. 5mg was not as effective before Evelina Soto RN 03/24/2017 23:09 * Plan of Care - Jeannie Aguirre RN - 03/24/2017 1427 EDT Problem: Daily Care Plan Goals Goal: Care Plan Documentation Outcome: Met This Shift 03/24/17 1123 Care Plan Focus Goal This Shift Pts respiratory status will be stable for pt Data: AOX3, Chest tube to LCWS all shift except to gravity when ambulating. O2 at 1L/NC with sats >92%. Denies respiratory difficulty or SOB this shift. at bedside all shift. Pt teary at times regarding diagnosis and feeling overwhelmed. States + BM and no dysuria. Using IS Action: Provided emotional support. Changed Chest Tube cannister this shift. Response: No respiratory difficulties, minimal pain at chest tube insertion site. Continue to monitor. JEANNIE AGUIRRE RN 03/24/2017 14:20 * Plan of Care - Evelina Lawler - 03/24/2017 1134 EDT Problem: Daily Care Plan Goals Goal: Care Plan Documentation Outcome: Ongoing 03/24/17 0734 03/24/17 1123 Care Plan Focus Area of Focus Respiratory -- Goal This Shift -- Pts respiratory status will be stable for pt Data: Pt presented 03/19 with SOB and lung mass. Lung sounds diminished on assessment. Chest tube inplace on -20 cm H2O. Nasal Cannula in place running at 1 L/min. Action: Chest tube chamber changed d/t overflow, hooked back to suction. RR monitored. Response: Pt reports no pain, dizziness, SOB. RR WNL. VSS. Will continue to monitor. BP 105/61 (BP Cuff Location: Left arm, Patient Position: Sitting) Temp 36.3 ??C (97.3 ??F) (Tympanic) Resp 17 Ht 176.5 cm (69.5) Wt (!) 126.4 kg (278 lb 10.6 oz) SpO2 95% BMI 40.56 kg/m2 Evelina Lawler 03/24/2017 11:23 * Plan of Care - Teodora Bowen RN - 03/24/2017 0346 EDT Problem: Daily Care Plan Goals Goal: Care Plan Documentation Outcome: Ongoing Data: Pt admitted for lung mass. Has a chest tube w/ suction in the left chest for pleural effusion. Complains of some diverse flank pain. Action: Monitor chest tube output. Medicate for pain (see emar). Cluster care to promote rest. VS Q4. Response: Pt resting comfortably, at bedside. Will continue to monitor. Teodora Bowen RN 03/24/2017 3:40 * Plan of Care - Jeniffer Frankel RN - 03/23/2017 5287 EDT Problem: Daily Care Plan Goals Goal: Care Plan Documentation 03/23/17 1510 Care Plan Focus Area of Focus Communication Goal This Shift future plans for pt Data: pt biopsy came back w/ carcinoma-pt and family aware; chest tube set to suction; 1L O2; 1 assist Action: Pt went to CT scan after contrast was completed; PRN pain meds for pain/discomfort from drain; family close by side; tried to be there for emotional support; pt states, she is a survivor, not a statistic Response: pt and family dealing w/ news brought on; future plans to be made for healing; call wallace close; will continue to monitor and assess pain Jeniffer Frankel RN 03/23/2017 21:33 * Plan of Care - Viola Sigala RN - 03/23/2017 1407 EDT Problem: Daily Care Plan Goals Goal: Care Plan Documentation Outcome: Ongoing 03/23/17 0825 Care Plan Focus Goal This Shift Pt will report a tolerable level of pain Data: Pt admitted for SOB related to a new mediastinal mass Action: Pts CT placed back to 20cm water suction. She ambulates frequently in hallway. Response: Pts pain well-controlled with PRN Tylenol and oxycodone Viola Sigala RN 03/23/2017 14:05 * Plan of Care - Mark Rhodes RN - 03/23/2017 0258 EDT Problem: Daily Care Plan Goals Goal: Care Plan Documentation Outcome: Ongoing Data: Goal for pt is adequate pain control. Action: Educated pt on pain scale and medication frequency. Medicated per eMAR. Response: Pt's pain has been well managed. Will continue to monitor. Mark Rhodes RN 03/23/2017 2:58 * Plan of Care - Tricia Lopez RN - 03/22/2017 1424 EDT Problem: Daily Care Plan Goals Goal: Care Plan Documentation Outcome: Met This Shift 03/22/17 0900 Care Plan Focus Area of Focus Other Goal This Shift get IR procedure done Data: Patient's goal was to go to IR today. Action: Helped facilitate communication between patient and IR scheduling. Gave report to Jyoti in IR about patient's anxiety and sensitivity to IV narcotics. Response: Patient is now in IR. Tricia Lopez RN 03/22/2017 14:21 * Plan of Care - Maya Sin RN - 03/21/2017 9158 EDT Problem: Daily Care Plan Goals Goal: Care Plan Documentation 03/20/171999 Care Plan Focus Area of Focus Respiratory Goal This Shift monitor for changes in respiratory status Data: assumed care at 1900, pt alert and oriented, no additional output in the chest tube. Action: report given to Evan on Weiss 3. Chest tube taken off of wall suction for transport. Response: pt transferred MAYA SIN RN 03/21/2017 22:56 * Transfer Summary (Intrafacility) - Shanel Boyle MD - 03/21/2017 1726 EDT Medicine Admission History & Physical Service Date: 03/18/2017 Admit Date: 03/19/2017 1:48 Primary Care Provider: Doctor Unknown Chief Complaint: SOB HPI Brayan Jaramillo is a 61 y.o. female with a PMH significant for atrial fibrillation on apixaban, obesity, HTN, and factor V Leiden (no formal testing), who was transferred from [facility] on03/18 following presentation for 3 months of progressive SOB. Patient reports symptoms started gradually and were only noted with exercise though progressed to the point that it took minimal activity to cause SOB. She denies any weight loss, night sweats, fevers, or chills. She denies any chest painor cough. CT chest was performed at OSH due to concern for PE which was negative for PE but did show a large 8 x 5 x 8 anterior mediastinal mass and large left sided pleural effusion. Patient was transferred to [facility] for further management and started on a heparin drip. While on floor she had multiple episodes of desaturation which improved with supplemental O2. She was ultimately transferred tot MICU for AMS in the setting of worsening hypoxia and hypercarbia which she was initially placedon bipap and then intubated. A left chest tube was placed which large output of serous exudative fluid. Her respiratory status improved following chest tube placement and she was extubated to high flow NC which was quickly weaned to NC. She had stable respiratory status overnight and was suitable for transfer to the medical oncology service on 03/21. Patient reports breathing is much improved following chest tube placement. Additionally, ICU stay was complicated by agitation and there was concern for alcohol withdrawal given history of significant alcohol intake (although patient endorses only drinking 3-4 beers/week recently) which was treated with precedex, phenobarbitol and haldol. These have all been discontinued earlier today and patient has remained calm and appropriate Currently she endorses pain at the chest tube site but no other symptoms. She understands that there is concern for cancer at which point she becomes tearful and asked whether she could go home to bewith her family prior to initiating any treatment for the cancer. Review of Systems: 10 point review of systems performed, pertinent findings as per subjective/HPI. PMHx: Atrial fibrillation on apixaban Surgical hx include laparotomy for ruptured appendix 2007, incarcerated hernia repair. Social History Substance Use Topics ??? Smoking status: Never Smoker ??? Smokeless tobacco: Never Used ??? Alcohol use Used to drink heavily in the past but had decreased intake significantly now drinking 1 beer/night x 3-4 nights per week. 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 Family hx: includes daughter w/ Factor V Leiden. No family hx of cancer Allergies Allergen Reactions ??? Penicillins Hives Objective BP 110/70 Temp 36.5 ??C (97.7 ??F) (Tympanic) Resp 23 Ht 176.5 cm (69.5) Wt (!) 126.4 kg (278 lb 10.6 oz) SpO2 90% BMI 40.56 kg/m2 Gen: Awake, alert, NAD, obese HEENT: PERRL, anicteric, EOMI Neck: Trachea midline CV: Irregularly irregular, no m/r/g Pulm: decreased lung sounds bilateral superior lung kim (poor inspiratory effort). 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 Recent Labs 03/19/17 1144 PHISTAT 7.48* PCOISTAT 46* POISTAT 73* POCTCO2 36* BEART 10 POCFIO2 60 Recent Labs 03/20/17 0305 TBIL 1.6* ALKPHOS 61 AST 25 ALT 21 Fluid cytology: negative for malignant cells, + reactive mesothelial cells, lymphocytes and giant cells Microscopy: Pleural fluid cultures: gram stain with PMN but no bacteria, final culture without growth. Fungal cultures and acid-fast cultures pending. Secondary read CT chest1. ??Suspicious lobulated anterior mediastinal calcified soft tissue mass measuring 8.8 x 4.8 x 8.8 cm suspicious for malignancy. Differential considerations include thymoma, thymic carcinoma, lymphoma, or less likely germ cell tumor. 2. ??Suspicious mediastinal lymphadenopathy for metastatic disease. 3. ??Large left and small right pleural effusion with multifocal enhancing left pleural and pericardial nodularity suspicious for metastatic disease. Assessment/Plan Brayan Jaramillo is a 61 y.o. female with history including atrial fibrillation on apixaban, obesity, HTN, and possible factor V Leiden, who presented 03/18 from an OSH with 3 months of progressive SOB with imaging revealing large anterior mediastinal mass with large left pleural effusion now s/p left chest tube placement. Hospitalization complicated by hypoxemic and hypercapneic respiratory failure requiring intubation which has now improved. She remains hemodynamically stable on NC. Patient to betransferred to medical oncology service. Plan as outlined below. Anterior mediastinal lung mass with large left pleural effusion s/p left chest tube placement: Presented with 3 months of shortness of breath. OSH CT 03/18 revealed revealed large anterior mediastinalmass and large left pleural effusion with compressive atelectasis as well as mediastinal lymph nodeand pericardial involvement. Fluid cytology negative though showing exudative process. Differentialincludes lymphoma, thymoma, thyroid cancer or primary lung cancer. Teratoma unlikely given negativetumor markers. -IR biopsy tomorrow of mediastinal mass -NPO at midnight -Discontinue heparin drip -Pulmonology to follow for chest tube management, appreciate recommendations -Start Oxycodone 5-10 mg PRN q4 hours for chest tube insertion site pain. 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 Suspect ICU hyperactive delirium which appears to be improved. - can use prn haldol in case patient becomes significantly agitated again HTN - Vitals q4 hours - Continue cardiac meds as outlined above Obesity: Likely has some element of YESSENIA vs obesity hypoventilation syndrome given mildly elevated bicarb/hypercarbic respiratory failure earlier int he hospital course. -Can consider sleep study as outpatient -Monitor O2 saturation with goal >92%. Factor V Leiden: No formal diagnosis. Was taking Eliquist for afib, not for factor V Leiden. No history of VTE. -Continue to monitor VTE Prophylaxis: Heparin infusion (will discontinue for procedure), will start ppx lovenox follow biopsy Code: Full Discharge Plan: Pending clinical course Diet: Regular, NPO at midnight Omar Kennedy MD Attending Attestation I saw and examined the patient. I discussed the patient with Dr. Kennedy and Dr. Farah as well as the ICU team. I agree with and edited (in green) the findings and plan of care as documented in the note above. Shanel Boyle MD Internal Medicine Hospitalist 03/21/2017 20:38 * Plan of Care - Walker Tellez, RN - 03/21/2017 1140 EDT Problem: Daily Care Plan Goals Goal: Care Plan Documentation Outcome: Ongoing 03/20/171999 Care Plan Focus Area of Focus Respiratory Goal This Shift monitor for changes in respiratory status Data: Pt admitted with dyspnea + lung mass, rapid afib this admission was on diltiazem drip rate now on po,afib not new, rate controlled pt drowsy a+o x3 this am + follows commands no aggitation 1510 Pt ambulated in the dugan with PT, tolerated well, up in the chair, alarm, vss sat well on 3l nc afib rate controlled more alert today intact mentally no s/s of DT's 1745 vss desat on ra to 87% placed back on 2l nc, pt c/o of discomfort along L ct site, wants foleyout, spoke with pt's attending awaiting order for both, has transfer orders no beds presently available to transfer to Action: plan: wean precedex off, up to the chair, keep sat > 92%, map > 60, uo > 30/hr Response: con't to monitor 1745 evaluation: met goals this shift, sat > 92% with nc, map > 60, uo > 30/hr Walker Tellez RN 03/21/2017 11:35 * Plan of Care - Kaley Salguero RN - 03/19/2017 1227 EDT Problem: Daily Care Plan Goals Goal: Care Plan Documentation Outcome: Ongoing 03/19/17 0800 Care Plan Focus Area of Focus Respiratory Goal This Shift maintain stable respiratory parameters Data: Intubated and chest tube placed----1600cc out. Family updated. Remains on 60% fi02. Riley placed. Action: Propofol started, heparin restarted. Using prn fentanyl for agitation. Response: CTM Kaley Salguero RN 03/19/2017 12:24 1800 Has remained sedated and comfortable on propofol. Dgter called for update. UFH sent. TF to be started. Good urine output. CT draining yellow fluid. sleeping in car in garage. * Plan of Care - Beti Mc RN - 03/19/2017 0641 EDT Problem: Daily Care Plan Goals Goal: Care Plan Documentation Outcome: Not Met This Shift 03/19/17 0200 Care Plan Focus Area of Focus Respiratory Goal This Shift maintain sats Data: patient transferred from [facility] to [facility] after a MET call. Patiuent awake, alert cooperative onadmission to MICU. Atrial Fib, stable vital signs. Heparin drip infusing. Action: Patient jeremy NIV for several hours. Arouses to verbal stimuli. VBG drawn Response: Patient's VBG results Abnormal, MD aware. Heparin drip stopped in anticipation of procedure. Stable vital signs.Arouses to verbal stimuli Beti Mc RN 03/19/2017 6:37 * Plan of Care - Yen Lu RN - 03/19/2017 0312 EDT Brayan arrived via ambulance from [facility]. She arrived on the floor at approximately 2100. Her VSS. Her oxygenation was approximately 91% on 4L NC. Approx 2315, I was alerted that her oxygen level was dropping. I responded to the room and her oxygen level was in the 70's and her NC was off her nose. I placed the NC back on but her O2 level continued to drop down to 59%. No rebreather was placed but it took over 5 minutes to get her levels backup. CATS call was made due to delayed recovery of oxygenation. Providers responded to the call. Around 0100 we noticed that her oxygen levels were staying around 86%. I increased her oxygen to 7 L and she continued to sat 84-86%. We changed her over to a venturi mask and her oxygen continued todrop down to the low 80's. We contacted respiratory therapy to assist with oxygen management. We changed her over to a non-rebreather mask at 15L and she still was barely maintain her O2 level in theupper 80's for approximately 10 minutes. She was confused, slurred words, tearful, and difficult toawake. Provider notified and second CATS call made for transfer to MICU. All personal belongings taken by and daughter upon transfer. * Transfer Summary (Intrafacility) - Bella Langston MD - 03/19/2017 0148 EDT Critical Care Admission Note Service Date: 03/19/2017 Admit Date: 03/18/2017 20:49 Reason for Admission to ICU: 61 y.o. female admitted with a chief complaint of hypoxia, SOB and nowwith a principal diagnosis of acute hypoxic hypercapnic respiratory failure in the setting of new anterior mediastinal mass discovery. Summary of hospitalization: Ms. Jaramillo is a 61 year old female with a PMH significant for atrial fibrillation and factor V leiden disorder on eliquis who presented to the OSH with increasing SOB and found to be hypoxic. CT PE was done with concern for PE but demonstrated new lung mass (anterior mediastinal) and left moderately-sized pleural effusion. Patient transferred to [facility] for further workup per Oncology service withplanned biopsy; however, patient arrived and had increasing oxygen requirements precipitating an urgent response call. She was sleeping and noted to have desaturated to 59%. On the floor, she was on a heparin gtt. Patient emergently transferred to the MICU for BiPAP. Subjective/Objective Subjective Patient denies SOB, CP, abdominal pain, nausea/vomiting, tobacco use or recent alcohol use. She generally feels comfortable in bed. Review of Systems Pertinent items are noted in Subjective/HPI Objective Blood pressure 114/70, temperature 36 ??C (96.8 ??F), temperature source Tympanic, resp. rate 20, height 176.5 cm (69.5), weight (!) 126.4 kg (278 lb 10.6 oz), SpO2 96 %. Physical Exam GEN: patient is AAOx3, not oriented fully to situation, NAD, resting comfortably in bed HEENT: MMM CARD: tachycardic rate, no m/r/g RESP: diminished entry of air in left middle and lower lung kim ABD: soft, non-tender, non-distended, normoactive bowel sounds with no rebound tenderness or guarding LE: trace LE edema to upper shins bilaterally NEURO: EOMI, PERRLA, uvula elevates symmetrically and tongue protrudes in midline PSYCH: appropriate mood and insight : no riley in place Recent Labs 10/06/17 2147 WBC 6.18 HGB 16.0* HCT 48.4* PLT 219 Recent Labs 03/18/17 2147 NA 138 K 4.5 CL 93* CO2 36* BUN 8* CREATININE 0.48* AB.14/121/57 Imaging: CXR: large left pleural effusion, mediastinal widening, rounded soft tissue density in right axilla Assessment/Plan Assessment Ms. Jaramillo is a 61 year old female initially transferred from [facility] for new lung mass requiring further workup and found to have acute hypoxic hypercapnic respiratory failure requiring transfer to the[facility] for BiPAP therapy. 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 Bella Langston MD 03/19/2017 1:48 Associated attestation - Richa Blue MD PhD - 03/19/2017 0647 EDT Attending attestation statement: I saw and examined the patient with the resident and agree with the findings and plans as documented, and as amended in blue. Clinical Condition: Brayan Jaramillo is a critically ill 61 y.o. female. Over the past 24 hours, therehas been a high probability of sudden, clinically significant or life threatening deterioration in the patient???s condition, which include the following diagnoses which I have managed: 1. SOB (shortness of breath) 2. Lung mass 3. Large left pleural effusion 4. Acute resp failure 5. On BiPAP Critical Care time was provided in the form of interventions to treat and prevent further life threatening deterioration of the patient???s condition including: management of non-invasive ventilation, fluid, acute respiratory failure, and fluids, and high complexity decision making regarding need for additional imaging studies and / or interventional radiology interventions and the need for critical procedures, such as: thoracentesis. My bedside involvement was required to monitor and direct the critical care that has been provided.Exclusive of procedures, my critical care time is 40 minutes. Richa Blue MD Pulmonary & Critical Care Medicine 03/19/2017 documented in this encounter Plan of Treatment Scheduled Orders Name Type Priority Associated Diagnoses Orde r Schedule CYTOPATHOLOGY/CYTOLOGY FLUID SAMPLE Pathology Routine One Time for 1 Occurrences starting 03/19/2017 until 03/19/2017 FLOW CYTOMETRY, FLUID Lab Routine One Time for 1 Occurrences starting 03/19/2017 until 03/19/2017 CYTOLOGY (NON-GYNECOLOGIC INCLUDING FLUIDS AND FINE NEEDLE ASPIRATION)- ORDER ONLY Pathology Routine One Time for 1 Occurrences starting 03/22/2017 until 03/22/2017 SURGICAL PATHOLOGY- ORDER ONLY Pathology Routine One Time for 1 Occurrences starting 03/22/2017 until 03/22/2017 Scheduled Referrals Name Type Priority Associated Diagnoses Orde r Schedule AMB CONS/FOLLOW UP ONCOLOGY Outpatient Referral Routine Mediastinal mass Left breast mass Ordered: 03/27/2017 documented as of this encounter Procedures Procedure Name Priority Date/Time Associated Diagnosis Comments PATHOLOGY - SCANNED 05/10/2017 1 1:18 EST CHEST PA AND LATERAL Routine 03/27/2017 8:06 EDT CHEST PA AND LATERAL Routine 03/26/2017 14:16 EDT SURGICAL PATHOLOGY Routine 03/25/2017 14 :12 EDT RAD US BREAST BIOPSY Routine 03/25/2017 13:04 EDT MA BILAT 2D/3D KIMI DX OR AV MAMMO EXAM Routine 03/25/2017 11:45 EDT PTT Routine 03/25/2017 5:55 EDT PROTIME Routine 03/25/2017 5:55 EDT COMPLETE BLOOD COUNT AND DIFFERENTIAL Routine 03/25/2017 5:55 EDT ELECTROLYTES Routine 03/25/2017 5:55 EDT COMPLETE BLOOD COUNT AND DIFFERENTIAL Routine 03/24/2017 5:55 EDT ELECTROLYTES Routine 03/24/2017 5:55 EDT GLUCOSE, GLUCOMETER Routine 03/23/2017 2 1:[address] ABDOMEN, PELVIS W CONTRAST Routine 03/23/2017 19:53 EDT ECG REPORT - SCANNED 03/23/2017 14:39 EDT COMPLETE BLOOD COUNT AND DIFFERENTIAL Routine 03/23/2017 5:47 EDT ELECTROLYTES Routine 03/23/2017 5:47 EDT SURGICAL PATHOLOGY Routine 03/22/2017 16 :15 EDT CHEST PA Routine 03/22/2017 15:55 EDT IR BIOPSY GUIDANCE Routine 03/22/2017 14 :40 EDT COMPLETE BLOOD COUNT AND DIFFERENTIAL Routine 03/22/2017 5:39 EDT CALCIUM Routine 03/22/2017 5:39 EDT ELECTROLYTES Routine 03/22/2017 5:39 EDT CYTOPATHOLOGY Routine 03/22/2017 0:00 EDT INPATIENT ADD-ON Routine 03/21/2017 14:2 5 EDT INPATIENT ADD-ON Routine 03/21/2017 11:0 5 EDT PORTABLE CHEST 1 VIEW Routine 03/21/2017 9:55 EDT AFP TUMOR MARKER Routine 03/21/2017 3:01 EDT HEPARIN LEVEL - UNFRACTIONATED HEPARIN STAT 03/21/2017 3:01 EDT COMPLETE BLOOD COUNT AND DIFFERENTIAL Routine 03/21/2017 3:01 EDT QUANT BETA HCG, Routine 03/21/2017 3:01 EDT BUN Routine 03/21/2017 3:01 EDT LDH Routine 03/21/2017 3:01 EDT CREATININE Routine 03/21/2017 3:01 EDT ELECTROLYTES Routine 03/21/2017 3:01 EDT RESPIRATORY CARE EVALUATION ONLY Routine 03/20/2017 21:23 EDT RESPIRATORY CARE EVALUATION ONLY Routine 03/20/2017 11:38 EDT RESPIRATORY CARE EVALUATION ONLY Routine 03/20/2017 11:38 EDT EXTUBATION Routine 03/20/2017 11:19 EDT INPATIENT ADD-ON STAT 03/20/2017 8:25 EDT HEPARIN LEVEL - UNFRACTIONATED HEPARIN STAT 03/20/2017 3:05 EDT COMPLETE BLOOD COUNT Routine 03/20/2017 3:05 EDT BUN Routine 03/20/2017 3:05 EDT ALT Routine 03/20/2017 3:05 EDT AST Routine 03/20/2017 3:05 EDT PHOSPHORUS Routine 03/20/2017 3:05 EDT ALKALINE PHOSPHATASE Routine 03/20/2017 3:05 EDT MAGNESIUM Routine 03/20/2017 3:05 EDT GLUCOSE, SERUM Routine 03/20/2017 3:05 EDT CREATININE Routine 03/20/2017 3:05 EDT BILIRUBIN, TOTAL Routine 03/20/2017 3:05 EDT ELECTROLYTES Routine 03/20/2017 3:05 EDT HEPARIN LEVEL - UNFRACTIONATED HEPARIN STAT 03/19/2017 18:18 EDT ZZBLOOD GAS, G3 ISTAT Routine 03/19/2017 11:44 EDT PORTABLE CHEST PA CENTRAL LINE/PICC/ET TUBE,INITIAL INSERTION STAT 03/19/2017 11:08 EDT FLUID TYPE Routine 03/19/2017 10:51 EDT PH, PLEURAL FLUID Routine 03/19/2017 10: 51 EDT BACTERIAL CULTURE/SMEAR, FLUID Routine 03/19/2017 10:51 EDT AFB CULTURE/SMEAR, OTHER Routine 03/19/2017 10:51 EDT ANAEROBE CULTURE/SMEAR(INC. AEROBES), FLUID Routine 03/19/2017 10:51 EDT FUNGUS CULTURE/SMEAR Routine 03/19/2017 10:51 EDT FLUID DIFFERENTIAL Routine 03/19/2017 10 :51 EDT FLUID CELL COUNT Routine 03/19/2017 10:5 1 EDT TOTAL PROTEIN, FLUID Routine 03/19/2017 10:51 EDT LDH, FLUID Routine 03/19/2017 10:51 EDT GLUCOSE, FLUID Routine 03/19/2017 10:51 EDT ZZBLOOD GAS, G3 ISTAT Routine 03/19/2017 9:01 EDT ZZBLOOD GAS, G3 ISTAT Routine 03/19/2017 6:16 EDT PROTIME Routine 03/19/2017 6:02 EDT HEPARIN LEVEL - UNFRACTIONATED HEPARIN STAT 03/19/2017 6:02 EDT COMPLETE BLOOD COUNT AND DIFFERENTIAL Routine 03/19/2017 6:02 EDT BUN Routine 03/19/2017 6:02 EDT CREATININE Routine 03/19/2017 6:02 EDT ELECTROLYTES Routine 03/19/2017 6:02 EDT RESPIRATORY CARE EVALUATION ONLY Routine 03/19/2017 2:43 EDT ZZBLOOD GAS, G3 ISTAT Routine 03/19/2017 1:35 EDT CYTOPATHOLOGY Routine 03/19/2017 0:00 EDT FLOW CYTOMETRY Routine 03/19/2017 0:00 EDT PORTABLE CHEST 1 VIEW STAT 03/18/2017 23:59 EDT SECONDARY READ CHEST CT Routine 03/18/20 17 22:57 EDT COMPLETE BLOOD COUNT AND DIFFERENTIAL Routine 03/18/2017 21:47 EDT BUN Routine 03/18/2017 21:47 EDT CREATININE Routine 03/18/2017 21:47 EDT ELECTROLYTES Routine 03/18/2017 21:47 EDT documented in this encounter Results * PATHOLOGY - SCANNED (05/10/2017 11:18 EST) 05/10/2017 11:1 8 EST Scan 2 Crew Dispatcher LAB INFO SERVICE AN D SUPPORT & PHONE RESULT * CHEST PA AND LATERAL (03/27/2017 8:06 EDT) Anatomical Region Laterality Modality Other 03/27/2017 8:06 EDT 03/27/2017 9:00 EDT Narrative 03/27/2017 9:00 EDT CHEST PA AND LATERAL ??03/27/2017 8:06 AM Clinical History/Comments: CT removed 03/26-pleural effusion/ca, check for reaccumulation COMPARISON: Chest radiographs 03/26/2017. TECHNIQUE: Frontal and lateral views of the chest were performed. FINDINGS: Soft tissues: Normal. Bones: No significant abnormalities. Cardiac and mediastinal contours: Enlarged but unchanged compared to prior images. Lungs: Streaky opacities in the lung bases likely reflect passive atelectasis due to bilateral pleural effusions. Pleura/diaphragms: Bilateral pleural effusions do not appear significant changed compared to most recent prior radiographs. IMPRESSION: Stable appearance of the chest. Moderate-sized bilateral pleural effusions with associated atelectasis. I have personally reviewed the images and the above interpretation and agree with the findings. Procedure Note Mel Carrizales MD - 03/27/2017 CHEST PA AND LATERAL 03/27/2017 8:06 AM Clinical History/Comments: CT removed 03/26-pleural effusion/ca, check for reaccumulation COMPARISON: Chest radiographs 03/26/2017. TECHNIQUE: Frontal and lateral views of the chest were performed. FINDINGS: Soft tissues: Normal. Bones: No significant abnormalities. Cardiac and mediastinal contours: Enlarged but unchanged compared to prior images. Lungs: Streaky opacities in the lung bases likely reflect passive atelectasis due to bilateral pleural effusions. Pleura/diaphragms: Bilateral pleural effusions do not appear significant changed compared to most recent prior radiographs. IMPRESSION: Stable appearance of the chest. Moderate-sized bilateral pleural effusions with associated atelectasis. I have personally reviewed the images and the above interpretation and agree with the findings. Tricia Farah MD PhD IMG DIAGNOSTIC IM AGING ORDERABLES * CHEST PA AND LATERAL (03/26/2017 14:16 EDT) Anatomical Region Laterality Modality Other 03/26/2017 14:1 6 EDT 03/26/2017 17:52 EDT Narrative 03/26/2017 17:52 EDT CHEST PA AND LATERAL ??03/26/2017 2:16 PM SIGNS AND SYMPTOMS/COMMENTS: ?? s/p thora and CT: eval prior to pulling CT COMPARISON: Serial chest radiograph most recently March 22, 2017 TECHNIQUE: PA and lateral upright chest radiograph were obtained. FINDINGS: Inferoposterior left thoracic pigtail drainage catheter is in similar in position to three days prior. Bilateral pleural effusions persist, left larger than right. ??Differences in patient positioning between today's study and the March 22, 2017 study preclude meaningful comparison of volume of left pleural fluid. No pneumothorax is seen. Visible portions of the cardiomediastinal silhouette are unchanged. Pulmonary vasculature is normal. The bones, soft tissues, and visible portions of the upper abdomen exhibit no substantive interval change. IMPRESSION: Persistent bilateral pleural effusions, left larger than right, with stable position of inferoposterior left thoracic pigtail drain. I have personally reviewed the images and the above interpretation and agree with the findings. Procedure Note Adonis Land MD - 03/26/2017 CHEST PA AND LATERAL 03/26/2017 2:16 PM SIGNS AND SYMPTOMS/COMMENTS: s/p thora and CT: eval prior to pulling CT COMPARISON: Serial chest radiograph most recently March 22, 2017 TECHNIQUE: PA and lateral upright chest radiograph were obtained. FINDINGS: Inferoposterior left thoracic pigtail drainage catheter is in similar in position to three days prior. Bilateral pleural effusions persist, left larger than right. Differences in patient positioning between today's study and the March 22, 2017 study preclude meaningful comparison of volume of left pleural fluid. No pneumothorax is seen. Visible portions of the cardiomediastinal silhouette are unchanged. Pulmonary vasculature is normal. The bones, soft tissues, and visible portions of the upper abdomen exhibit no substantive interval change. IMPRESSION: Persistent bilateral pleural effusions, left larger than right, with stable position of inferoposterior left thoracic pigtail drain. I have personally reviewed the images and the above interpretation and agree with the findings. Tricia Farah MD PhD IMG DIAGNOSTIC IM AGING ORDERABLES * SURGICAL PATHOLOGY (03/25/2017 14:12 EDT) Pathology Report: SURGICAL PATHOLOGY REPORT Reports generated via electronic interface contain original data; however they are lacking the format of the original report. Caution should be taken when reading/interpreting unformatted reports. Name: ? BRAYAN JARAMILLO ? Accession #: ? [id number] ? : ? 1955 (Age: 61) ??F ? Collect Date: ? 03/25/2017 ? Location: ? [facility] ? Receive Date: ? 03/25/2017 ? Provider: MEG DUARTE MD Copy to: SHANEL PEREZ MD ? Final Pathologic Diagnosis: BREAST, LEFT, 9 O'CLOCK, 1 CM FROM NIPPLE, ULTRASOUND GUIDED CORE BIOPSY: - ?Benign breast tissue with nodular fibrocystic changes including sclerosing adenosis and cyst formation. ??See comment. Comment: In addition to sclerosing adenosis and cyst formation there are focal fibroadenomatoid changes. The ductal structures show retained expression of heavy chain myosin and P63, confirming their benign nature. ??Mechanical System Technician slides of this case were reviewed at the intradepartmental consultation conference. ??(Dr. Bond)/mpl Immunoperoxidase staining was performed on this case to further characterize the lesion. ?? ANTIBODY(CLONE)(BLOC K):RESULT P63 (4A4, [place]) (block 1): ??Expression retained. Heavy Chain Myosin (S131, [place]) (block 1): Expression retained. NOTE: ??One or more of the reagents used in immunoperoxidase testing in this case may not have been cleared or approved by the U.S. Food and Drug Administration (FDA). ??The FDA has determined that such clearance or approval is not necessary. ??These tests are used for clinical purposes. ??They should not be regarded as investigational or for research. ??These reagents' performance characteristics have been determined by the [facility]. ??The positive and negative controls worked appropriately. ??If immunoperoxidase staining has been performed on alcohol fixed cytology specimens, which has not been fully validated, the assays should be interpreted with caution and correlated with clinical data. ??This laboratory is certified under the Clinical Laboratory Improvement Amendments of 1988 (CLIA-88) as qualified to perform high complexity clinical laboratory testing. ?? Document reviewed and electronically signed by: ADRIANA PERRY MD Report ??Date: 03/29/2017 14:49 By the signature above, the attending physician certifies that he/she has personally conducted a gross and/or microscopic examination of the described specimens and rendered or confirmed the above diagnosis. Specimen(s) Received: Ultrasound guided core biopsy, left breast, 9 o'clock, 1 cm from nipple Clinical History: Recently biopsied (here) malignant mass in mediastinum, ? 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 Received in formalin labelled with proper patient identification (initials B, C) and left breast, 9 o'clock, 1 cm out are four yellow-white soft and firm fibrofatty tissue cores (2.0 cm to 0.7 cm in length, and each 0.1 cm in diameter). Entirely submitted in 1 and 2. Time removed from patient: 1251 hrs on 03/25/2017 Time placed in formalin: 1251 hrs on 03/25/2017 Time out of formalin: 1900 hrs on 03/25/2017 Mihrab Ali 03/25/2017 2:46 PM End of Report [facility] 03/25/2017 14:1 2 EDT 03/25/2017 14:12 EDT Meg Duarte MD PATHOLOGY ORDERA SHAILESH [facility] [address] [place] [address] * RAD US BREAST BIOPSY (03/25/2017 13:04 EDT) Anatomical Region Laterality Modality Other 03/25/2017 13:0 4 EDT 04/06/2017 21:22 EDT Narrative 03/25/2017 14:23 EDT Addendum Begins This is an addendum to the left breast ultrasound-guided core biopsy performed by Dr. Meg Duarte on 03/25/2017. Pathology and imaging findings were reviewed by Eric Weiss and Saurav. Pathology from the left breast biopsy at 9 o'clock, 1 cm from the nipple demonstrates benign breast tissue with nodular fibrocystic changes including sclerosing adenosis and cyst formation. The pathologist further commented that in addition to sclerosing adenosis and cyst formation there are focal fibroadenomatoid changes. The ductal structures show retained expression of heavy chain myosin and and p63, confirming their benign nature. After review of the imaging findings in addition to the biopsy procedure demonstrating good sampling of the lesion and the pathology findings, we believe this diagnosis to be benign and concordant. As such, no imaging follow-up for this finding will be needed. 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 A member of the Radiology department will contact the patient with the biopsy results and follow-up recommendations. Addendum Ends RAD US BREAST BIOPSY ??03/25/2017 1:04 PM Signs and Symptoms/Comments: ?? irregular mass 12:00 left breast--Breast mass Informed written consent was obtained to perform an ultrasound-guided core biopsy with clip placement of a malignant appearing solid mass in the left breast at 9 o'clock 1 cm from the nipple. ??Patient identification and site verification were confirmed. ??The patient's questions were answered. 10 cc of buffered lidocaine were used for superficial and deeper anesthesia. ??Under ultrasound guidance and with a 14-gauge core biopsy device inserted through a 13-gauge introducer, 4 core samples were obtained without difficulty. ??A hydro-Stanislaw type III clip was placed within the biopsied mass. Given the patient's overall condition (IV and chest tube in place), I elected not to perform a post procedure mammogram feeling that the biopsied mass responds without question to the malignant appearing mammographic mass. ??There were no immediate complications and the patient was taken back to the [facility] in satisfactory condition. Results from today's biopsy should be available within 3-5 workdays. ?? A member of our staff will be calling the patient with these biopsy results. Procedure Note Meg Duarte MD / Corrie Stokes MD - 04/06/2017 Addendum Begins This is an addendum to the left breast ultrasound-guided core biopsy performed by Dr. Meg Duarte on 03/25/2017. Pathology and imaging findings were reviewed by Eric Weiss and Saurav. Pathology from the left breast biopsy at 9 o'clock, 1 cm from the nipple demonstrates benign breast tissue with nodular fibrocystic changes including sclerosing adenosis and cyst formation. The pathologist further commented that in addition to sclerosing adenosis and cyst formation there are focal fibroadenomatoid changes. The ductal structures show retained expression of heavy chain myosin and and p63, confirming their benign nature. After review of the imaging findings in addition to the biopsy procedure demonstrating good sampling of the lesion and the pathology findings, we believe this diagnosis to be benign and concordant. As such, no imaging follow-up for this finding will be needed. 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 A member of the Radiology department will contact the patient with the biopsy results and follow-up recommendations. Addendum Ends RAD US BREAST BIOPSY 03/25/2017 1:04 PM Signs and Symptoms/Comments: irregular mass 12:00 left breast--Breast mass Informed written consent was obtained to perform an ultrasound-guided core biopsy with clip placement of a malignant appearing solid mass in the left breast at 9 o'clock 1 cm from the nipple. Patient identification and site verification were confirmed. The patient's questions were answered. 10 cc of buffered lidocaine were used for superficial and deeper anesthesia. Under ultrasound guidance and with a 14-gauge core biopsy device inserted through a 13-gauge introducer, 4 core samples were obtained without difficulty. A hydro-Stanislaw type III clip was placed within the biopsied mass. Given the patient's overall condition (IV and chest tube in place), I elected not to perform a post procedure mammogram feeling that the biopsied mass responds without question to the malignant appearing mammographic mass. There were no immediate complications and the patient was taken back to the [facility] in satisfactory condition. Results from today's biopsy should be available within 3-5 workdays. A member of our staff will be calling the patient with these biopsy results. Omar Kennedy MD [facility] [place] ORDERABLE S * MA BILAT 2D/3D KIMI DX OR AV MAMMO EXAM (03/25/2017 11:45 EDT) Anatomical Region Laterality Modality Other 03/25/2017 11:4 5 EDT 03/25/2017 14:08 EDT Narrative 03/25/2017 14:08 EDT BILAT 2D/3D KIMI DX OR AV ??MAMMO EXAM ??03/25/2017 11:45 AM Signs and Symptoms/Comments: ?? Breast mass left breast 12 o'clock. Bilateral diagnostic mammogram was performed with 3-D C view imaging in the MLO and CC projections. ??An additional tangential compression view of a palpable mass in the left breast was also obtained. ??This mammogram was interpreted with the aid of computer-assisted detection (CAD) technology. ??The breast tissue is almost entirely fat. Findings Right Breast: There are no concerning abnormalities in the right breast. Impression Right Breast: BI-RADS category 1, negative. Recommendation Right Breast: Annual screening mammography. Findings Left Breast: Corresponding to the palpable lump, there is a round largely circumscribed approximately 25 mm mass containing heterogeneous calcifications. ??No other abnormalities are seen in the left breast. ?? No axillary lymph nodes are identified. Impression Left Breast: BI-RADS Category 5, highly suspicious for malignancy. Recommendation: As discussed with the patient, she will undergo ultrasound-guided core biopsy with clip placement. ??This exam will be dictated separately. Overall Assessment: Highly suspicious. Results of the imaging exam and recommendations for follow up were discussed with the patient by the radiologist. The patient will be notified of these breast imaging results via a lay letter from Radiology. Radiology will contact the patient directly regarding any findings which require additional imaging (Category 0) at this time. Procedure Note Meg Duarte MD - 03/25/2017 BILAT 2D/3D KIMI DX OR AV MAMMO EXAM 03/25/2017 11:45 AM Signs and Symptoms/Comments: Breast mass left breast 12 o'clock. Bilateral diagnostic mammogram was performed with 3-D C view imaging in the MLO and CC projections. An additional tangential compression view of a palpable mass in the left breast was also obtained. This mammogram was interpreted with the aid of computer-assisted detection (CAD) technology. The breast tissue is almost entirely fat. Findings Right Breast: There are no concerning abnormalities in the right breast. Impression Right Breast: BI-RADS category 1, negative. Recommendation Right Breast: Annual screening mammography. Findings Left Breast: Corresponding to the palpable lump, there is a round largely circumscribed approximately 25 mm mass containing heterogeneous calcifications. No other abnormalities are seen in the left breast. No axillary lymph nodes are identified. Impression Left Breast: BI-RADS Category 5, highly suspicious for malignancy. Recommendation: As discussed with the patient, she will undergo ultrasound-guided core biopsy with clip placement. This exam will be dictated separately. Overall Assessment: Highly suspicious. Results of the imaging exam and recommendations for follow up were discussed with the patient by the radiologist. The patient will be notified of these breast imaging results via a lay letter from Radiology. Radiology will contact the patient directly regarding any findings which require additional imaging (Category 0) at this time. Omar Kennedy MD IM MAMMOGRAPHY ORDERABLES * (ABNORMAL) HEMAGRAM AND DIFFERENTIAL (03/25/2017 5:55 EDT) WBC 5.42 4.0 - 12.4 K/cmm 03/25/2017 6:56 [facility] RBC 4.47 3.86 - 5.04 M/cmm 03/25/2017 6:56 [facility] Hemoglobin 14.4 11.6 - 15.2 gm/dl 03/25/2017 6:56 [facility] HCT 43.9 34.9 - 44.4 % 03/25/2017 6:56 [facility] MCV 98 81 - 98 fl 03/25/2017 6:56 [facility] MCH 32.2 26.7 - 33.3 pg 03/25/2017 6:56 [facility] MCHC 32.8 32.1 - 35.9 gm/dl 03/25/2017 6:56 [facility] RDW-CV 12.7 <14.7 % 03/25/2017 6:56 [facility] RDW-SD 45.6 <50.4 fl 03/25/2017 6:56 [facility] PLT 195 141 - 377 K/cmm 03/25/2017 6:56 [facility] MPV 10.5 9.5 - 12.7 fl 03/25/2017 6:56 [facility] % Neutrophils 62.9 % 03/25/2017 6:56 [facility] % Lymphocytes 13.5 % 03/25/2017 6:56 [facility] % Monocytes 16.4 % 03/25/2017 6:56 [facility] % Eosinophils 5.7 % 03/25/2017 6:56 [facility] % Basophils 1.1 % 03/25/2017 6:56 [facility] % Immature Grans 0.4 % 03/25/2017 6:56 [facility] ABS Neutrophils 3.41 2.20 - 8.85 K/cmm 03/25/2017 6:56 [facility] ABS Lymphs 0.73(L) 1.09 - 3.30 K/cmm 03/25/2017 6:56 [facility] ABS Monocytes 0.89(H) 0.1 - 0.8 K/cmm 03/25/2017 6:56 [facility] ABS Eosinophils 0.31 0.03 - 0.61 K/cmm 03/25/2017 6:56 [facility] ABS Basophils 0.06 0.01 - 0.11 K/cmm 03/25/2017 6:56 [facility] ABS Immature Grans 0.02 0 - 0.06 K/cmm 03/25/2017 6:56 [facility] Type of Diff: Automated 03/25/2017 6:56 [facility] Blood specimen (specimen) BLOOD SPECIMEN / Unknown 03/25/2017 5:55 EDT 03/25/2017 6:26 EDT Beti Guerrier DO PACKAGES & DNA PRO BE ORDERABLES Performing Organization Address [facility] de Phone Number [facility] [address] [place] [address] * (ABNORMAL) ELECTROLYTES (03/25/2017 5:55 EDT) Sodium 138 136 - 145 mEq/L 03/25/2017 7:[address] [facility] Potassium 4.5 3.5 - 5.0 mEq/L 03/25/2017 7:[address] [facility] Chloride 94(L) 96 - 110 mEq/L 03/25/2017 7:[address] [facility] CO2 35(H) 22 - 32 mEq/L 03/25/2017 7:[address] [facility] Blood specimen (specimen) BLOOD SPECIMEN / Unknown 03/25/2017 5:55 EDT 03/25/2017 6:26 EDT Beti Guerrier DO CHEMISTRY & BLOOD GAS ORDERABLES Performing Organization Address [facility] de Phone Number [facility] [address] [place] [address] * PTT (03/25/2017 5:55 EDT) PTT 29 26 - 37 secs 03/25/2017 6:[address] [facility] Blood specimen (specimen) BLOOD SPECIMEN / Unknown 03/25/2017 5:55 EDT 03/25/2017 6:26 EDT Omar Kennedy MD HEMATOLOGY & PF4 ORDERABLES Performing Organization Address [facility] de Phone Number [facility] [address] [place] [address] * PROTIME (03/25/2017 5:55 EDT) Pro Time 12.6 10.3 - 13.1 secs 03/25/2017 6:[address] [facility] I.N.R. 1.1 0.9 - 1.1 Ratio 03/25/2017 6:[address] [facility] Comment: Moderate Intensity Coumadin INR = 2.0-3.0 Adjustments in anticoagulant therapy dose should be based upon the INR and NOT the Pro Time. Blood specimen (specimen) BLOOD SPECIMEN / Unknown 03/25/2017 5:55 EDT 03/25/2017 6:26 EDT Omar Kennedy MD HEMATOLOGY & PF4 ORDERABLES [facility] [address] [place] [address] * (ABNORMAL) HEMAGRAM AND DIFFERENTIAL (03/24/2017 5:55 EDT) WBC 5.31 4.0 - 12.4 K/cmm 03/24/2017 6:49 [facility] RBC 4.45 3.86 - 5.04 M/cmm 03/24/2017 6:49 [facility] Hemoglobin 14.3 11.6 - 15.2 gm/dl 03/24/2017 6:49 [facility] HCT 44.1 34.9 - 44.4 % 03/24/2017 6:49 [facility] MCV 99(H) 81 - 98 fl 03/24/2017 6:49 [facility] MCH 32.1 26.7 - 33.3 pg 03/24/2017 6:49 [facility] MCHC 32.4 32.1 - 35.9 gm/dl 03/24/2017 6:49 [facility] RDW-CV 12.5 <14.7 % 03/24/2017 6:49 [facility] RDW-SD 46.6 <50.4 fl 03/24/2017 6:49 [facility] PLT 208 141 - 377 K/cmm 03/24/2017 6:49 [facility] MPV 10.4 9.5 - 12.7 fl 03/24/2017 6:49 [facility] % Neutrophils 65.5 % 03/24/2017 6:49 [facility] % Lymphocytes 14.5 % 03/24/2017 6:49 [facility] % Monocytes 14.3 % 03/24/2017 6:49 [facility] % Eosinophils 4.7 % 03/24/2017 6:49 [facility] % Basophils 0.6 % 03/24/2017 6:49 [facility] % Immature Grans 0.4 % 03/24/2017 6:49 [facility] ABS Neutrophils 3.48 2.20 - 8.85 K/cmm 03/24/2017 6:49 [facility] ABS Lymphs 0.77(L) 1.09 - 3.30 K/cmm 03/24/2017 6:49 [facility] ABS Monocytes 0.76 0.1 - 0.8 K/cmm 03/24/2017 6:49 [facility] ABS Eosinophils 0.25 0.03 - 0.61 K/cmm 03/24/2017 6:49 [facility] ABS Basophils 0.03 0.01 - 0.11 K/cmm 03/24/2017 6:49 [facility] ABS Immature Grans 0.02 0 - 0.06 K/cmm 03/24/2017 6:49 [facility] Type of Diff: Automated 03/24/2017 6:49 [facility] Blood specimen (specimen) BLOOD SPECIMEN / Unknown 03/24/2017 5:55 EDT 03/24/2017 6:31 EDT Beti Guerrier DO PACKAGES & DNA PRO BE ORDERABLES [facility] [address] [place] [address] * (ABNORMAL) ELECTROLYTES (03/24/2017 5:55 EDT) Sodium 138 136 - 145 mEq/L 03/24/2017 7:14 [facility] Potassium 4.4 3.5 - 5.0 mEq/L 03/24/2017 7:14 [facility] Chloride 94(L) 96 - 110 mEq/L 03/24/2017 7:[address] [facility] CO2 34(H) 22 - 32 mEq/L 03/24/2017 7:[address] [facility] Blood specimen (specimen) BLOOD SPECIMEN / Unknown 03/24/2017 5:55 EDT 03/24/2017 6:31 EDT Beti Guerrier DO CHEMISTRY & BLOOD GAS ORDERABLES Performing Organization Address [facility] de Phone Number [facility] [address] [place] [address] * (ABNORMAL) GLUCOSE, GLUCOMETER (03/23/2017 21:30 EDT) Glucose, Fingerstick 126(H) 70 - 100 mg/dl 03/23/2017 21:[address] [facility] [employer] ID [id number] 03/23/2017 21:[address] [facility] Comment:Test Performed by [facility] BLOOD SPECIMEN / Unknown 03/23/2017 21:30 EDT 03/23/2017 21:31 EDT Shanel Boyle MD CHEMISTRY & BLOOD GA S ORDERABLES Performing Organization Address [facility] de Phone Number [facility] [address] [place] [address] * CT ABDOMEN, PELVIS W CONTRAST (03/23/2017 19:53 EDT) Anatomical Region Laterality Modality Other 03/23/2017 19:5 3 EDT 03/24/2017 10:09 EDT Narrative 03/24/2017 10:[address] ABDOMEN, PELVIS W CONTRAST ??03/23/2017 7:53 PM SIGNS AND SYMPTOMS/COMMENTS: ?? Neoplasm: abdomen, other primary, recurrence, suspected/known TECHNIQUE: CT abdomen and pelvis was performed with the administration of intravenous and oral contrast. Coronal and sagittal multiplanar reconstructions were generated. COMPARISON: CT chest 03/18/2017. No prior abdominopelvic imaging available for comparison. FINDINGS: Lower chest: There is a 2.5 cm mass in the left breast tissue. There is nodular soft tissue partially imaged in the paracardial fat. A left pleural drain is partially imaged, and the left pleural effusion is markedly decreased in size from prior. There is a small right pleural effusion with associated passive atelectasis. Aortic valve calcifications are present. There is coronary atherosclerosis. Hepatobiliary: There are ill-defined areas of heterogeneous hypoattenuation in the liver, for example in the right hepatic lobe axial #50. The gallbladder is normal and there is no biliary ductal dilatation. Spleen, pancreas, adrenal glands: Normal. Kidneys, ureters, bladder: The kidneys enhance symmetrically. There is no hydroureteronephrosis nor urolithiasis. There is a focus of air in the urinary bladder, presumably iatrogenic in nature. The bladder is otherwise normal in appearance. Uterus, ovaries: Multiple partially calcified uterine fibroids are present, including a pedunculated fibroid to the right. The ovaries appear normal. Bowel: There is no evidence of bowel obstruction or inflammation. Peritoneal cavity / Subperitoneal space: There is no free intra-abdominal air, free fluid or fluid collection. Lymphovascular: Multiple small intraperitoneal lymph nodes are present, including an elongated left para-aortic node. Several lymph nodes show fatty infiltration. There is scattered calcific atherosclerotic disease. Abdominal wall: Multiple ventral abdominal wall hernias are seen, one containing a loop of transverse colon, and 2 others containing loops of small bowel. There is no evidence of bowel strangulation, though evaluation of bowel perfusion is limited by the presence of enteric contrast. There is significant body wall edema and thickening of the skin of the inferior pannus. Musculoskeletal: There is a suspicious lytic lesion in the T11 vertebral body, as well as a mixed lytic and sclerotic lesion in the L2 vertebral body. There are degenerative changes throughout the lower thoracic and lumbar spine. No fracture is identified. Sclerosis of the femoral head noted bilaterally without flattening. IMPRESSION: 1. A 2.5 cm mass in the left breast is highly concerning for malignancy. Recommend diagnostic workup with mammogram and ultrasound. 2. Soft tissue nodularity in the paracardial fat better imaged on recent chest CT is concerning for metastatic disease. 3. At least 2 suspicious osseous lesions are identified, one in the T12 vertebral body and the other in the L2 vertebral body, both concerning for osseous metastases. 4. Ill-defined areas of hypoattenuation in the liver are nonspecific. If the presence of hepatic metastases would alter management, this could be further evaluated with contrast-enhanced MRI. 5. Decreased size of left pleural effusion following left pleural drain placement. There is a small right pleural effusion. 5. Multiple bowel containing ventral hernias without evidence of bowel obstruction. 6. Additional chronic and incidental findings as described above. I have personally reviewed the images and the above interpretation and agree with the findings. Procedure Note Jana Nguyen MD - 03/24/2017 CT ABDOMEN, PELVIS W CONTRAST 03/23/2017 7:53 PM SIGNS AND SYMPTOMS/COMMENTS: Neoplasm: abdomen, other primary, recurrence, suspected/known TECHNIQUE: CT abdomen and pelvis was performed with the administration of intravenous and oral contrast. Coronal and sagittal multiplanar reconstructions were generated. COMPARISON: CT chest 03/18/2017. No prior abdominopelvic imaging available for comparison. FINDINGS: Lower chest: There is a 2.5 cm mass in the left breast tissue. There is nodular soft tissue partially imaged in the paracardial fat. A left pleural drain is partially imaged, and the left pleural effusion is markedly decreased in size from prior. There is a small right pleural effusion with associated passive atelectasis. Aortic valve calcifications are present. There is coronary atherosclerosis. Hepatobiliary: There are ill-defined areas of heterogeneous hypoattenuation in the liver, for example in the right hepatic lobe axial #50. The gallbladder is normal and there is no biliary ductal dilatation. Spleen, pancreas, adrenal glands: Normal. Kidneys, ureters, bladder: The kidneys enhance symmetrically. There is no hydroureteronephrosis nor urolithiasis. There is a focus of air in the urinary bladder, presumably iatrogenic in nature. The bladder is otherwise normal in appearance. Uterus, ovaries: Multiple partially calcified uterine fibroids are present, including a pedunculated fibroid to the right. The ovaries appear normal. Bowel: There is no evidence of bowel obstruction or inflammation. Peritoneal cavity / Subperitoneal space: There is no free intra-abdominal air, free fluid or fluid collection. Lymphovascular: Multiple small intraperitoneal lymph nodes are present, including an elongated left para-aortic node. Several lymph nodes show fatty infiltration. There is scattered calcific atherosclerotic disease. Abdominal wall: Multiple ventral abdominal wall hernias are seen, one containing a loop of transverse colon, and 2 others containing loops of small bowel. There is no evidence of bowel strangulation, though evaluation of bowel perfusion is limited by the presence of enteric contrast. There is significant body wall edema and thickening of the skin of the inferior pannus. Musculoskeletal: There is a suspicious lytic lesion in the T11 vertebral body, as well as a mixed lytic and sclerotic lesion in the L2 vertebral body. There are degenerative changes throughout the lower thoracic and lumbar spine. No fracture is identified. Sclerosis of the femoral head noted bilaterally without flattening. IMPRESSION: 1. A 2.5 cm mass in the left breast is highly concerning for malignancy. Recommend diagnostic workup with mammogram and ultrasound. 2. Soft tissue nodularity in the paracardial fat better imaged on recent chest CT is concerning for metastatic disease. 3. At least 2 suspicious osseous lesions are identified, one in the T12 vertebral body and the other in the L2 vertebral body, both concerning for osseous metastases. 4. Ill-defined areas of hypoattenuation in the liver are nonspecific. If the presence of hepatic metastases would alter management, this could be further evaluated with contrast-enhanced MRI. 5. Decreased size of left pleural effusion following left pleural drain placement. There is a small right pleural effusion. 5. Multiple bowel containing ventral hernias without evidence of bowel obstruction. 6. Additional chronic and incidental findings as described above. I have personally reviewed the images and the above interpretation and agree with the findings. Omar Kennedy MD [facility] [place] ORDERABLE S * ECG REPORT - SCANNED (03/23/2017 14:39 EDT) 03/23/2017 14:3 9 EDT Scan 2 Crew Dispatcher PROCEDURE/MINOR JASWINDER GICAL ORDERABLES * (ABNORMAL) HEMAGRAM AND DIFFERENTIAL (03/23/2017 5:47 EDT) WBC 6.20 4.0 - 12.4 K/cmm 03/23/2017 6:[address] [facility] RBC 4.45 3.86 - 5.04 M/cmm 03/23/2017 6:27 [facility] Hemoglobin 14.5 11.6 - 15.2 gm/dl 03/23/2017 6:27 [facility] HCT 44.3 34.9 - 44.4 % 03/23/2017 6:27 [facility] MCV 100(H) 81 - 98 fl 03/23/2017 6:27 [facility] MCH 32.6 26.7 - 33.3 pg 03/23/2017 6:27 [facility] MCHC 32.7 32.1 - 35.9 gm/dl 03/23/2017 6:27 [facility] RDW-CV 12.7 <14.7 % 03/23/2017 6:27 [facility] RDW-SD 46.6 <50.4 fl 03/23/2017 6:27 [facility] PLT 188 141 - 377 K/cmm 03/23/2017 6:27 [facility] MPV 10.3 9.5 - 12.7 fl 03/23/2017 6:27 [facility] % Neutrophils 73.6 % 03/23/2017 6:27 [facility] % Lymphocytes 12.9 % 03/23/2017 6:27 [facility] % Monocytes 9.7 % 03/23/2017 6:27 [facility] % Eosinophils 2.7 % 03/23/2017 6:27 [facility] % Basophils 0.6 % 03/23/2017 6:27 [facility] % Immature Grans 0.5 % 03/23/2017 6:27 [facility] ABS Neutrophils 4.56 2.20 - 8.85 K/cmm 03/23/2017 6:27 [facility] ABS Lymphs 0.80(L) 1.09 - 3.30 K/cmm 03/23/2017 6:27 [facility] ABS Monocytes 0.60 0.1 - 0.8 K/cmm 03/23/2017 6:27 [facility] ABS Eosinophils 0.17 0.03 - 0.61 K/cmm 03/23/2017 6:27 [facility] ABS Basophils 0.04 0.01 - 0.11 K/cmm 03/23/2017 6:[address] [facility] ABS Immature Grans 0.03 0 - 0.06 K/cmm 03/23/2017 6:[address] [facility] Type of Diff: Automated 03/23/2017 6:[address] [facility] Blood specimen (specimen) BLOOD SPECIMEN / Unknown 03/23/2017 5:47 EDT 03/23/2017 6:06 EDT Beti Guerrier DO PACKAGES & DNA PRO BE ORDERABLES Performing Organization Address [facility] de Phone Number [facility] [address] [place] [address] * (ABNORMAL) ELECTROLYTES (03/23/2017 5:47 EDT) Sodium 134(L) 136 - 145 mEq/L 03/23/2017 6:[address] [facility] Potassium 4.0 3.5 - 5.0 mEq/L 03/23/2017 6:[address] [facility] Chloride 92(L) 96 - 110 mEq/L 03/23/2017 6:[address] [facility] CO2 31 22 - 32 mEq/L 03/23/2017 6:[address] [facility] Blood specimen (specimen) BLOOD SPECIMEN / Unknown 03/23/2017 5:47 EDT 03/23/2017 6:06 EDT Beti Guerrier DO CHEMISTRY & BLOOD GAS ORDERABLES Performing Organization Address [facility] de Phone Number [facility] [address] [place] [address] * SURGICAL PATHOLOGY (03/22/2017 16:15 EDT) Pathology Report: SURGICAL PATHOLOGY REPORT Reports generated via electronic interface contain original data; however they are lacking the format of the original report. Caution should be taken when reading/interpreting unformatted reports. Name: ? IGNACIO, BRAYAN ? Accession #: ? [id number] ? : ? 1955 (Age: 61) ??F ?Collect Date: ? 03/22/2017 ? Location: ? [facility] ? Receive Date: ? 03/22/2017 ? Provider: KEVIN AHRRIS Copy to: SHANEL PEREZ MD ? Final Pathologic Diagnosis: MEDIASTINUM, MASS, BIOPSY: - [...] request. Final classification is deferred to resection. ??Mechanical System Technician slides of this case were reviewed at the intradepartmental consultation conference. Immunoperoxidase stains were performed on this case to further characterize the lesion. ANTIBODY(CLONE)(BLOC K):RESULT Ckit (CD117) (EP10, [employer]) (2): Positive CD5 (Rabbit Monoclonal, clone SP19, [employer]) (2): Positive PAX-8 (MRQ-50, [place]) (2): Positive P40 (BC28, [place]) (2): Positive Keratin AE1-AE3 (AE1-AE3, [employer]) (2): Positive Chromogranin (LK2H10, [place]) (2): Positive Synaptophysin (27G12, [employer]) (2): Positive MIB-1 (DAKO) (MIB-1, [employer]) (2): 5-15% nuclei positive CK7 (RN7, [employer]) (2): Negative CK20 (Ks20.8, [employer]) (2): Negative TTF-1 (8G7G3/1, [place]) (2): Negative GATA3 (L50-823, [place]) (2): Negative CD34 (QBEnd/10, [employer]) (2): Negative NOTE: ??One or more of the reagents used in immunoperoxidase testing in this case may not have been cleared or approved by the U.S. Food and Drug Administration (FDA). ??The FDA has determined that such clearance or approval is not necessary. ??These tests are used for clinical purposes. ??They should not be regarded as investigational or for research. ??These reagents' performance characteristics have been determined by [facility]. ??The positive and negative controls worked appropriately. If immunoperoxidase staining has been performed on alcohol fixed cytology specimens, which has not been fully validated, the assays should be interpreted with caution and correlated with clinical data. ??This laboratory is certified under the Clinical Laboratory Improvement Amendments of 1988 (CLIA-88) as qualified to perform high complexity clinical laboratory testing. Dr. Farah 03/23/2017 11:10 AM ? Document reviewed and electronically signed by: ? MERLIN SALCEDO MD ? Report ??Date: 03/29/2017 09:00 By the signature above, the attending physician certifies that he/she has personally conducted a gross and/or microscopic examination of the described specimens and rendered or confirmed the above diagnosis. Clinical History: Never smoked, presented with SOB and was found to have a 5.0 mediastinal mass; evaluate for malignancy ? Gross Description: ? Received in formalin labelled with proper patient identification (initials B, C) and not otherwise specified are six guzmán-pink to brown cylindrical tissues ranging from 0.2 x 0.1 cm to 0.8 x 0.1 cm. Entirely submitted in 1 and 2. KIMBERLY Garcia ([facility]) 03/22/2017 5:23 PM ? SEND OUT TEST SUMMARY REPORT ? Date Ordered: ? 04/13/2017 ? Status: ?? Signed Out ?Date Complete: ? 05/03/2017 ? By: ??Barbara Thurman ? Date Reported: ? 05/03/2017 ? 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 - No therapies associated with potential clinical benefit. ??See comment. Comment Please see complete [facility] report for details of this next-generation sequencing analysis. ??[facility]'s (block 1 utilized for testing). ?? Description Received: ??Mediastinum Clinical History: ??Thymic epithelial neoplasm with neuroendocrine features Gross description: ??Two paraffin embedded tissue blocks labelled [id number], blocks (1 and 2) are submitted to [facility] for next-generation sequencing analysis at the request of Dr. Gayla Tomas. Document reviewed and electronically signed by: ? GABRIEL CASTELLANO MD ? Report date: 05/03/2017 By the signature above, the attending physician certifies that he/she has personally conducted a gross and/or microscopic examination of the described specimens and rendered or confirmed the above diagnosis. End of Report [facility] 03/22/2017 16:1 5 EDT 03/22/2017 16:15 EDT Kevin Flores PA-C PATHOLOGY ORDERAB LES [facility] [address] [place] [address] * CHEST PA (03/22/2017 15:55 EDT) Anatomical Region Laterality Modality Other 03/22/2017 15:5 5 EDT 03/22/2017 16:45 EDT Narrative 03/22/2017 16:45 EDT CHEST PA ??03/22/2017 3:55 PM Clinical History/Comments: Pleural effusion s/p chest tube placement and mediastinal biopsy, evaluate for pneumothorax/residue effusion Comparison: Multiple prior chest radiograph is most recent March 21, 2017.. Technique: Frontal view of the chest was performed. Findings: Soft tissues/bones: No significant abnormalities are identified. Cardiac and mediastinal contours: Normal for technique. Lungs and pleura: Increased opacity in the left base could reflect worsening airspace consolidation or increasing pleural fluid. Hazy opacity in the right base may be slightly better. The upper portions of the lungs are clear and the pulmonary vascularity is normal. There is no evidence of pneumothorax, but one cannot be excluded on this non-upright radiograph. I have personally reviewed the images and the above interpretation and agree with the findings. Procedure Note Adonis Land MD - 03/22/2017 CHEST PA 03/22/2017 3:55 PM Clinical History/Comments: Pleural effusion s/p chest tube placement and mediastinal biopsy, evaluate for pneumothorax/residue effusion Comparison: Multiple prior chest radiograph is most recent March 21, 2017.. Technique: Frontal view of the chest was performed. Findings: Soft tissues/bones: No significant abnormalities are identified. Cardiac and mediastinal contours: Normal for technique. Lungs and pleura: Increased opacity in the left base could reflect worsening airspace consolidation or increasing pleural fluid. Hazy opacity in the right base may be slightly better. The upper portions of the lungs are clear and the pulmonary vascularity is normal. There is no evidence of pneumothorax, but one cannot be excluded on this non-upright radiograph. I have personally reviewed the images and the above interpretation and agree with the findings. Omar Kennedy MD IMG DIAGNOSTIC I MAGING ORDERABLES * IR BIOPSY GUIDANCE (03/22/2017 14:40 EDT) Anatomical Region Laterality Modality Other 03/22/2017 14:4 0 EDT 03/22/2017 16:32 EDT Narrative 03/22/2017 16:32 EDT IR BIOPSY GUIDANCE ??03/22/2017 2:40 PM Signs and Symptoms/Comments: ??mediastinal mass with LAD, diagnostic for malignancy. Procedure: A sonographic examination of the chest was performed confirming a lobulated soft tissue mass in the left parasternal region corresponding with the anterior based on mass seen on the recent CT study performed at an outside institution. An appropriate needle entry site was chosen along the left upper intercostal space and internal mammary vessels visualized. Real-time sonographic guidance after sterile preparation and local anesthesia, a 19-gauge guide needle was advanced into the mass and several aspirates obtained. In addition, core biopsy specimens using a 20-gauge automated cutting biopsy needle were obtained for diagnostic purposes. The patient tolerated the procedure well and there were no complications encountered. Pression: Successful ultrasound-guided aspiration and core biopsy of a left anterior mediastinal mass using a left parasternal approach. There were no immediate complications encountered. Procedure Note Armin Venegas MD - 03/22/2017 IR BIOPSY GUIDANCE 03/22/2017 2:40 PM Signs and Symptoms/Comments: mediastinal mass with LAD, diagnostic for malignancy. Procedure: A sonographic examination of the chest was performed confirming a lobulated soft tissue mass in the left parasternal region corresponding with the anterior based on mass seen on the recent CT study performed at an outside institution. An appropriate needle entry site was chosen along the left upper intercostal space and internal mammary vessels visualized. Real-time sonographic guidance after sterile preparation and local anesthesia, a 19-gauge guide needle was advanced into the mass and several aspirates obtained. In addition, core biopsy specimens using a 20-gauge automated cutting biopsy needle were obtained for diagnostic purposes. The patient tolerated the procedure well and there were no complications encountered. Pression: Successful ultrasound-guided aspiration and core biopsy of a left anterior mediastinal mass using a left parasternal approach. There were no immediate complications encountered. Beti Guerrier DO [facility] IR ORDERABLES * (ABNORMAL) HEMAGRAM AND DIFFERENTIAL (03/22/2017 5:39 EDT) WBC 8.50 4.0 - 12.4 K/cmm 03/22/2017 6:[address] [facility] RBC 4.41 3.86 - 5.04 M/cmm 03/22/2017 6:[address] [facility] Hemoglobin 14.1 11.6 - 15.2 gm/dl 03/22/2017 6:[address] [facility] HCT 43.3 34.9 - 44.4 % 03/22/2017 6:45 [facility] MCV 98 81 - 98 fl 03/22/2017 6:45 [facility] MCH 32.0 26.7 - 33.3 pg 03/22/2017 6:45 [facility] MCHC 32.6 32.1 - 35.9 gm/dl 03/22/2017 6:45 [facility] RDW-CV 12.9 <14.7 % 03/22/2017 6:45 [facility] RDW-SD 46.3 <50.4 fl 03/22/2017 6:45 [facility] PLT 178 141 - 377 K/cmm 03/22/2017 6:45 [facility] MPV 10.2 9.5 - 12.7 fl 03/22/2017 6:45 [facility] % Neutrophils 72.6 % 03/22/2017 6:45 [facility] % Lymphocytes 12.4 % 03/22/2017 6:45 [facility] % Monocytes 13.6 % 03/22/2017 6:45 [facility] % Eosinophils 0.7 % 03/22/2017 6:45 [facility] % Basophils 0.1 % 03/22/2017 6:45 [facility] % Immature Grans 0.6 % 03/22/2017 6:45 [facility] ABS Neutrophils 6.17 2.20 - 8.85 K/cmm 03/22/2017 6:45 [facility] ABS Lymphs 1.05(L) 1.09 - 3.30 K/cmm 03/22/2017 6:45 [facility] ABS Monocytes 1.16(H) 0.1 - 0.8 K/cmm 03/22/2017 6:45 [facility] ABS Eosinophils 0.06 0.03 - 0.61 K/cmm 03/22/2017 6:45 [facility] ABS Basophils 0.01 0.01 - 0.11 K/cmm 03/22/2017 6:[address] [facility] ABS Immature Grans 0.05 0 - 0.06 K/cmm 03/22/2017 6:[address] [facility] Type of Diff: Automated 03/22/2017 6:[address] [facility] Blood specimen (specimen) BLOOD SPECIMEN / Unknown 03/22/2017 5:39 EDT 03/22/2017 6:28 EDT Beti Guerrier DO PACKAGES & DNA PRO BE ORDERABLES Performing Organization Address [facility] Co de Phone Number [facility] [address] [place] [address] * (ABNORMAL) ELECTROLYTES (03/22/2017 5:39 EDT) Sodium 136 136 - 145 mEq/L 03/22/2017 7:[address] [facility] Potassium 3.9 3.5 - 5.0 mEq/L 03/22/2017 7:[address] [facility] Chloride 94(L) 96 - 110 mEq/L 03/22/2017 7:[address] [facility] CO2 32 22 - 32 mEq/L 03/22/2017 7:[address] [facility] Blood specimen (specimen) BLOOD SPECIMEN / Unknown 03/22/2017 5:39 EDT 03/22/2017 6:28 EDT Beti Guerrier DO CHEMISTRY & BLOOD GAS ORDERABLES Performing Organization Address City/[facility]/ZIP Co de Phone Number [facility] [address] [place] [address] * CALCIUM (03/22/2017 5:39 EDT) Calcium 8.7 8.5 - 10.5 mg/dl 03/22/2017 7:[address] [facility] Calculated Calcium 9.3 8.5 - 10.5 mg/dl 03/22/2017 7:[address] [facility] Blood specimen (specimen) BLOOD SPECIMEN / Unknown 03/22/2017 5:39 EDT 03/22/2017 6:28 EDT Omar Kennedy MD CHEMISTRY & BLOO D GAS ORDERABLES [facility] [address] [place] [address] * CYTOPATHOLOGY (03/22/2017 0:00 EDT) Pathology Report: CYTOPATHOLOGY REPORT Reports generated via electronic interface contain original data; however they are lacking the format of the original report. Caution should be taken when reading/interpreting unformatted reports. Name: ? BRAYAN JARAMILLO ? Accession #: ? [id number] : ? 1955 (Age: 61) ??F ?Collect Date: ? 03/22/2017 Location: ? [facility] ? Receive Date: ? 03/22/2017 Provider: ? KEVIN HARRIS Copy to: ?SHANEL PEREZ MD ? Oracio Holley RN ([phone] [id number]) ? CYTOLOGIC DIAGNOSIS: MEDIASTINUM, ANTERIOR, 4.5 CM, ULTRASOUND GUIDED FINE NEEDLE ASPIRATION: - ??Malignant cells present; favor neoplasm of thymic origin. See comment. ? COMMENT: The specimen consists of cohesive groups of tumor cells with round nuclei, vesicular chromatin and prominent central nucleoli. Abundant necrosis and scattered lymphocytes are also noted. ??A cell block has been prepared and contains tumor cells with rare shobha formation and a focal area of possible squamous differentiation. ??Results of immunohistochemical stains, performed on the core biopsy, favor thymic origin for this malignancy. ??Please see the concurrent surgical pathology report ([id number]) for additional diagnostic details including complete immunohistochemical staining profile. ?? Document reviewed and electronically signed by: ? KOLE PERALES MD Report Date: ??03/29/2017 12:35 By the signature above, the attending physician certifies that he/she has personally conducted a gross and/or microscopic examination of the described specimens and rendered or confirmed the above diagnosis. Specimen Type: ? Mediastinum, Fine Needle Aspiration, Anterior Clinical History: ? Never smoked, presented with SOB and was found to have a 5.0 cm mediastinal mass; evaluate for malignancy ? Rapid Interpretation: MEDIASTINUM, ANTERIOR, 4.5 CM, ULTRASOUND GUIDED FINE NEEDLE ASPIRATION: Evaluation episode #1: ? Passes 1+2: ??Malignant cells present. ??Considerations include, but not limited to, thymic carcinoma, nuclear protein of the testis (NUT) midline carcinoma, other (metastatic carcinoma). Two passes into RPMI for cell block. Cores requested and obtained. Dr. Tavon Perales 03/22/2017 2:30 PM Gross Description: ? 3 fixed prepared slides, 1 air dried prepared slide, and 1 tube of RPMI for cell block processing was received. ? End of Report [facility] 03/22/2017 03/22/2017 16: 20 EDT Kevin Flores PA-C PATHOLOGY ORDERAB LES Performing Organization Address City/State/[facility] Co de Phone Number [facility] [address] [place] [address] * INPATIENT ADD-ON (03/21/2017 14:25 EDT) Tests to be added LDH, AFP, HCG 03/21/2017 14:[address] [facility] Number for problems [id number] 03/21/2017 14:[address] [facility] Accession number [id number] FOR AFP AND HCG DUPE REQUEST FOR LDH 03/21/2017 14:[address] [facility] Comment: Corrected on 03/21 AT 1436: Previously reported as [id number] FOR AFP AND HCG DUPE REQUEST FOR TOPOGRAPHY UNKNOWN / Unknown 03/21/2017 14:25 EDT 03/21/2017 14:33 EDT Beti Guerrier DO HEMATOLOGY & PF4 O RDERABLES Performing Organization Address City/[facility] Co de Phone Number [facility] [address] [place] [address] * INPATIENT ADD-ON (03/21/2017 11:05 EDT) Tests to be added LDH 03/21/2017 11:[address] [facility] Number for problems [id number] 03/21/2017 11:[address] [facility] Accession number [id number] 03/21/2017 11:[address] [facility] TOPOGRAPHY UNKNOWN / Unknown 03/21/2017 11:05 EDT 03/21/2017 11:12 EDT Arin Parnell MD HEMATOLOGY & PF4 OR DERABLES Performing Organization Address City/[facility] Co de Phone Number [facility] [address] [place] [address] * PORTABLE CHEST 1 VIEW (03/21/2017 9:55 EDT) Anatomical Region Laterality Modality Other 03/21/2017 9:55 EDT 03/21/2017 11:56 EDT Narrative 03/21/2017 11:56 EDT PORTABLE CHEST 1 VIEW ??03/21/2017 9:55 AM Clinical History/Comments: Malignant neoplasm of unspecified part of left bronchus or lung. Left chest tube. Assess effusion Comparison: Multiple prior chest radiographs most recent March 19, 2017.. Findings: Single portable AP view of the chest. Lines/tubes: ??There has been interval removal of endotracheal and transesophageal tubes. A left-sided pigtail catheter projects over the left costophrenic angle. Soft tissues and bones: No significant abnormalities. Cardiac and mediastinal contours: The cardiac and mediastinal contours appear grossly within normal limits given technique and patient rotation. Lungs: There has been slight interval worsening of bibasilar dense opacities which could reflect pleural or parenchymal disease. The pulmonary vascularity is normal. Pleura: Redemonstrated left chest pigtail catheter is in stable position. There is no evidence of pneumothorax, but one cannot be excluded on this non-upright radiograph. Both costophrenic angles remain blunted. Impression: Slight interval worsening of basilar opacities, otherwise stable appearing radiograph from one day prior. I have personally reviewed the images and the above interpretation and agree with the findings. Procedure Note Adonis Land MD - 03/21/2017 PORTABLE CHEST 1 VIEW 03/21/2017 9:55 AM Clinical History/Comments: Malignant neoplasm of unspecified part of left bronchus or lung. Left chest tube. Assess effusion Comparison: Multiple prior chest radiographs most recent March 19, 2017.. Findings: Single portable AP view of the chest. Lines/tubes: There has been interval removal of endotracheal and transesophageal tubes. A left-sided pigtail catheter projects over the left costophrenic angle. Soft tissues and bones: No significant abnormalities. Cardiac and mediastinal contours: The cardiac and mediastinal contours appear grossly within normal limits given technique and patient rotation. Lungs: There has been slight interval worsening of bibasilar dense opacities which could reflect pleural or parenchymal disease. The pulmonary vascularity is normal. Pleura: Redemonstrated left chest pigtail catheter is in stable position. There is no evidence of pneumothorax, but one cannot be excluded on this non-upright radiograph. Both costophrenic angles remain blunted. Impression: Slight interval worsening of basilar opacities, otherwise stable appearing radiograph from one day prior. I have personally reviewed the images and the above interpretation and agree with the findings. Arin Parnell MD IMG DIAGNOSTIC IMAG ING ORDERABLES * HCG FOR (03/21/2017 3:01 EDT) Quant Beta HCG, Preg <5 <5 mIU/ml 03/21/2017 15:[address] [facility] Comment: Reference Range: Negative = <5 Indeterminate = 5-25 recommend repeat in 48 hours. Positive = >25 BLOOD SPECIMEN / Unknown 03/21/2017 3:01 EDT 03/21/2017 3:15 EDT Brennan Larson MD CHEMISTRY & BLOOD GA S ORDERABLES Performing Organization Address [facility] Co de Phone Number [facility] [address] [place] [address] * AFP TUMOR MARKER (03/21/2017 3:01 EDT) [facility] AFP Tumor Marker <2.0 <8.1 ng/mL 03/21/2017 15:[address] [facility] Comment: AFP tumor marker cannot be interpreted in females. Serum AFP concentration should not be interpreted as absolute evidence for the presence or absence of malignant disease. Assayed utilizing Siemens chemiluminescent technology. Values obtained by using different assay methods cannot be used interchangeably. BLOOD SPECIMEN / Unknown 03/21/2017 3:01 EDT 03/21/2017 3:15 EDT Brennan Larson MD CHEMISTRY & BLOOD GA S ORDERABLES Performing Organization Address [facility] de Phone Number [facility] [address] [place] [address] * LDH (03/21/2017 3:01 EDT) [facility] LDH 466 313 - 618 U/L 03/21/2017 11:[address] [facility] BLOOD SPECIMEN / Unknown 03/21/2017 3:01 EDT 03/21/2017 3:15 EDT Brennan Larson MD CHEMISTRY & BLOOD GA S ORDERABLES Performing Organization Address [facility] Co de Phone Number [facility] [address] [place] [address] * (ABNORMAL) HEMAGRAM AND DIFFERENTIAL (03/21/2017 3:01 EDT) [facility] WBC 6.73 4.0 - 12.4 K/cmm 03/21/2017 3:[address] [facility] RBC 4.57 3.86 - 5.04 M/cmm 03/21/2017 3:[address] [facility] Hemoglobin 15.0 11.6 - 15.2 gm/dl 03/21/2017 3:[address] [facility] HCT 44.3 34.9 - 44.4 % 03/21/2017 3:34 [facility] MCV 97 81 - 98 fl 03/21/2017 3:34 [facility] MCH 32.8 26.7 - 33.3 pg 03/21/2017 3:34 [facility] MCHC 33.9 32.1 - 35.9 gm/dl 03/21/2017 3:34 [facility] RDW-CV 13.0 <14.7 % 03/21/2017 3:34 [facility] RDW-SD 46.3 <50.4 fl 03/21/2017 3:34 [facility] PLT 157 141 - 377 K/cmm 03/21/2017 3:34 [facility] MPV 10.3 9.5 - 12.7 fl 03/21/2017 3:34 [facility] % Neutrophils 73.2 % 03/21/2017 3:34 [facility] % Lymphocytes 12.0 % 03/21/2017 3:34 [facility] % Monocytes 13.8 % 03/21/2017 3:34 [facility] % Eosinophils 0.3 % 03/21/2017 3:34 [facility] % Basophils 0.3 % 03/21/2017 3:34 [facility] % Immature Grans 0.4 % 03/21/2017 3:34 [facility] ABS Neutrophils 4.92 2.20 - 8.85 K/cmm 03/21/2017 3:34 [facility] ABS Lymphs 0.81(L) 1.09 - 3.30 K/cmm 03/21/2017 3:34 [facility] ABS Monocytes 0.93(H) 0.1 - 0.8 K/cmm 03/21/2017 3:34 [facility] ABS Eosinophils 0.02(L) 0.03 - 0.61 K/cmm 03/21/2017 3:34 [facility] ABS Basophils 0.02 0.01 - 0.11 K/cmm 03/21/2017 3:[address] [facility] ABS Immature Grans 0.03 0 - 0.06 K/cmm 03/21/2017 3:[address] [facility] Type of Diff: Automated 03/21/2017 3:[address] [facility] Blood specimen (specimen) BLOOD SPECIMEN / Unknown 03/21/2017 3:01 EDT 03/21/2017 3:15 EDT Beti Guerrier DO PACKAGES & DNA PRO BE ORDERABLES Performing Organization Address City/[facility] Co de Phone Number [facility] [address] [place] [address] * CREATININE (03/21/2017 3:01 EDT) Creatinine 0.67 0.52 - 1.04 mg/dl 03/21/2017 3:[address] [facility] GFR, Calculated 97 >60 ml/min/1.7 3m2 03/21/2017 3:[address] [facility] Comment: eGFR calculated using CKD-EPI equation for non Americans. Multiply eGFR by 1.16 for Americans. Blood specimen (specimen) BLOOD SPECIMEN / Unknown 03/21/2017 3:01 EDT 03/21/2017 3:15 EDT Brennan Larson MD CHEMISTRY & BLOOD GA S ORDERABLES Performing Organization Address City/[facility] Co de Phone Number [facility] [address] [place] [address] * BUN (03/21/2017 3:01 EDT) BUN 13 10 - 26 mg/dl 03/21/2017 3:[address] [facility] Blood specimen (specimen) BLOOD SPECIMEN / Unknown 03/21/2017 3:01 EDT 03/21/2017 3:15 EDT Brennan Larson MD CHEMISTRY & BLOOD GA S ORDERABLES Performing Organization Address City/[facility]/ZIP Co de Phone Number [facility] [address] [place] [address] * (ABNORMAL) ELECTROLYTES (03/21/2017 3:01 EDT) Sodium 138 136 - 145 mEq/L 03/21/2017 3:[address] [facility] Potassium 3.8 3.5 - 5.0 mEq/L 03/21/2017 3:[address] [facility] Chloride 96 96 - 110 mEq/L 03/21/2017 3:[address] [facility] CO2 34(H) 22 - 32 mEq/L 03/21/2017 3:[address] [facility] Blood specimen (specimen) BLOOD SPECIMEN / Unknown 03/21/2017 3:01 EDT 03/21/2017 3:15 EDT Beti Guerrier DO CHEMISTRY & BLOOD GAS ORDERABLES Performing Organization Address City/[facility]/ZIP Co de Phone Number [facility] [address] [place] [address] * HEPARIN LEVEL - UNFRACTIONATED HEPARIN (03/21/2017 3:01 EDT) Pathologist [facility] Heparin Level-UFH 0.33 IU/mL 017 3:[address] [facility] Comment: Unfractionated heparin therapeutic range = 0.3-0.7 IU/ml This test is not intended for monitoring direct Xa inhibitors, direct thrombin inhibitors, or fondaparinux. Exogenous ATIII is NOT supplied in this assay. For unexpected or persistently low levels, consider measuring patient's ATIII level. Blood specimen (specimen) BLOOD SPECIMEN / Unknown 03/21/2017 3:01 EDT 03/21/2017 3:15 EDT Brennan Larson MD HEMATOLOGY & PF4 ORD ERABLES [facility] [address] [place] [address] * INPATIENT ADD-ON (03/20/2017 8:25 EDT) Tests to be added ALK PHOS,ALT,A ST,TOTAL BILI 03/20/2017 8:[address] [facility] Number for problems [id number] 03/20/2017 8:[address] [facility] Accession number [id number] 03/20/2017 8:[address] [facility] TOPOGRAPHY UNKNOWN / Unknown 03/20/2017 8:25 EDT 03/20/2017 8:32 EDT Mariah Ortiz MD HEMATOLOGY & PF4 ORDERABLES [facility] [address] [place] [address] * (ABNORMAL) BILIRUBIN, TOTAL (03/20/2017 3:05 EDT) Bilirubin, Total 1.6(H) <1.4 mg/dl 03/20/2017 8:[address] [facility] BLOOD SPECIMEN / Unknown 03/20/2017 3:05 EDT 03/20/2017 3:42 EDT Bella Langston MD CHEMISTRY & BLOOD GA S ORDERABLES Performing Organization Address City/[facility]/ZIP Co de Phone Number [facility] [address] [place] [address] * AST (03/20/2017 3:05 EDT) AST 25 15 - 46 U/L 03/20/2017 8:[address] [facility] BLOOD SPECIMEN / Unknown 03/20/2017 3:05 EDT 03/20/2017 3:42 EDT Bella Langston MD CHEMISTRY & BLOOD GA S ORDERABLES Performing Organization Address City/[facility]/ZIP Co de Phone Number [facility] [address] [place] [address] * ALT (03/20/2017 3:05 EDT) ALT 21 <53 U/L 03/20/2017 8:[address] [facility] BLOOD SPECIMEN / Unknown 03/20/2017 3:05 EDT 03/20/2017 3:42 EDT Bella Langston MD CHEMISTRY & BLOOD GA S ORDERABLES Performing Organization Address [facility] Co de Phone Number [facility] [address] [place] [address] * ALKALINE PHOSPHATASE (03/20/2017 3:05 EDT) Total Alkaline Phosphatase 61 38 - 126 U/L 03/20/2017 8:[address] [facility] BLOOD SPECIMEN / Unknown 03/20/2017 3:05 EDT 03/20/2017 3:42 EDT Bella Langston MD CHEMISTRY & BLOOD GA S ORDERABLES Performing Organization Address [facility] de Phone Number [facility] [address] [place] [address] * HEPARIN LEVEL - UNFRACTIONATED HEPARIN (03/20/2017 3:05 EDT) Heparin Level-UFH 0.45 IU/mL 017 4:[address] [facility] Comment: Unfractionated heparin therapeutic range = 0.3-0.7 IU/ml This test is not intended for monitoring direct Xa inhibitors, direct thrombin inhibitors, or fondaparinux. Exogenous ATIII is NOT supplied in this assay. For unexpected or persistently low levels, consider measuring patient's ATIII level. Blood specimen (specimen) BLOOD SPECIMEN / Unknown 03/20/2017 3:05 EDT 03/20/2017 3:41 EDT Brennan Larson MD HEMATOLOGY & PF4 ORD ERABLES Performing Organization Address [facility] Co de Phone Number [facility] [address] [place] [address] * (ABNORMAL) HEMAGRAM (03/20/2017 3:05 EDT) WBC 6.95 4.0 - 12.4 K/cmm 03/20/2017 3:[address] [facility] RBC 4.75 3.86 - 5.04 M/cmm 03/20/2017 3:[address] [facility] Hemoglobin 15.5(H) 11.6 - 15.2 gm/dl 03/20/2017 3:[address] [facility] HCT 45.1(H) 34.9 - 44.4 % 03/20/2017 3:[address] [facility] MCV 95 81 - 98 fl 03/20/2017 3:[address] [facility] MCH 32.6 26.7 - 33.3 pg 03/20/2017 3:[address] [facility] MCHC 34.4 32.1 - 35.9 gm/dl 03/20/2017 3:[address] [facility] RDW-CV 12.7 <14.7 % 03/20/2017 3:[address] [facility] RDW-SD 44.9 <50.4 fl 03/20/2017 3:[address] [facility] PLT 177 141 - 377 K/cmm 03/20/2017 3:[address] [facility] MPV 10.3 9.5 - 12.7 fl 03/20/2017 3:[address] [facility] Blood specimen (specimen) BLOOD SPECIMEN / Unknown 03/20/2017 3:05 EDT 03/20/2017 3:42 EDT Bella Langston MD HEMATOLOGY & PF4 ORD ERABLES [facility] [address] [place] [address] * PHOSPHORUS (03/20/2017 3:05 EDT) Phosphorus 2.6 2.5 - 4.5 mg/dl 03/20/2017 4:[address] [facility] Blood specimen (specimen) BLOOD SPECIMEN / Unknown 03/20/2017 3:05 EDT 03/20/2017 3:42 EDT Bella Langston MD CHEMISTRY & BLOOD GA S ORDERABLES [facility] [address] [place] [address] * MAGNESIUM (03/20/2017 3:05 EDT) Magnesium 1.8 1.7 - 2.8 mg/dl 03/20/2017 4:[address] [facility] Blood specimen (specimen) BLOOD SPECIMEN / Unknown 03/20/2017 3:05 EDT 03/20/2017 3:42 EDT Bella Langston MD CHEMISTRY & BLOOD GA S ORDERABLES Performing Organization Address City/[facility]/ZIP Co de Phone Number [facility] [address] [place] [address] * GLUCOSE, SERUM (03/20/2017 3:05 EDT) Glucose, Serum 98 70 - 100 mg/dl 03/20/2017 4:[address] [facility] Blood specimen (specimen) BLOOD SPECIMEN / Unknown 03/20/2017 3:05 EDT 03/20/2017 3:42 EDT Bella Langston MD CHEMISTRY & BLOOD GA S ORDERABLES Performing Organization Address [facility] Co de Phone Number [facility] [address] [place] [address] * (ABNORMAL) ELECTROLYTES (03/20/2017 3:05 EDT) Sodium 132(L) 136 - 145 mEq/L 03/20/2017 4:[address] [facility] Potassium 3.8 3.5 - 5.0 mEq/L 03/20/2017 4:[address] [facility] Chloride 95(L) 96 - 110 mEq/L 03/20/2017 4:[address] [facility] CO2 29 22 - 32 mEq/L 03/20/2017 4:[address] [facility] Blood specimen (specimen) BLOOD SPECIMEN / Unknown 03/20/2017 3:05 EDT 03/20/2017 3:42 EDT Bella Langston MD CHEMISTRY & BLOOD GA S ORDERABLES Performing Organization Address City/[facility] Co de Phone Number [facility] [address] [place] [address] * CREATININE (03/20/2017 3:05 EDT) Creatinine 0.52 0.52 - 1.04 mg/dl 03/20/2017 4:[address] [facility] GFR, Calculated 105 >60 ml/min/1.7 3m2 03/20/2017 4:[address] [facility] Comment: eGFR calculated using CKD-EPI equation for non Americans. Multiply eGFR by 1.16 for Americans. Blood specimen (specimen) BLOOD SPECIMEN / Unknown 03/20/2017 3:05 EDT 03/20/2017 3:42 EDT Bella Langston MD CHEMISTRY & BLOOD GA S ORDERABLES Performing Organization Address City/[facility] Co de Phone Number [facility] [address] [place] [id number] * BUN (03/20/2017 3:05 EDT) BUN 10 10 - 26 mg/dl 03/20/2017 4:[address] [facility] Blood specimen (specimen) BLOOD SPECIMEN / Unknown 03/20/2017 3:05 EDT 03/20/2017 3:42 EDT Bella Langston MD CHEMISTRY & BLOOD GA S ORDERABLES Performing Organization Address City/[facility] Co de Phone Number [facility] [address] [place] [address] * HEPARIN LEVEL - UNFRACTIONATED HEPARIN (03/19/2017 18:18 EDT) Heparin Level-UFH 0.21 IU/mL 017 18:[address] [facility] Comment: Unfractionated heparin therapeutic range = 0.3-0.7 IU/ml This test is not intended for monitoring direct Xa inhibitors, direct thrombin inhibitors, or fondaparinux. Exogenous ATIII is NOT supplied in this assay. For unexpected or persistently low levels, consider measuring patient's ATIII level. Sample retested, result confirmed Blood specimen (specimen) BLOOD SPECIMEN / Unknown 03/19/2017 18:18 EDT 03/19/2017 18:41 EDT Brennan Larson MD HEMATOLOGY & PF4 ORD ERABLES Performing Organization Address [facility]/ZIP Co de Phone Number [facility] [address] [place] [address] * (ABNORMAL) BLOOD GAS, G3 ISTAT (03/19/2017 11:44 EDT) pH, i-STAT 7.48(H) 7.35 - 7.45 03/19/2017 11:[address] [facility] pCO2, i-STAT 46(H) 35 - 45 mmHg 03/19/2017 11:[address] [facility] pO2, i-STAT 73(L) 80 - 105 mmHg 03/19/2017 11:[address] [facility] TCO2, i-STAT 36(H) 23 - 27 mEq/L 03/19/2017 11:[address] [facility] O2 Saturation 95 95 - 98 % 03/19/2017 11:[address] [facility] Base Excess, i-STAT 10 03/19/2017 11:[address] [facility] FIO2 60 03/19/2017 11:[address] [facility] Sample Type ARTERIAL 03/19/2017 11:[address] [facility] jamb cutter ID [id number] 03/19/2017 11:[address] [facility] Comment: Test Performed by Respiratory For non-arterial reference ranges, please see ISTAT procedure. BLOOD SPECIMEN / Unknown 03/19/2017 11:44 EDT 03/19/2017 11:48 EDT Ariel Perez MD CHEMISTRY & BLO OD GAS ORDERABLES Performing Organization Address [facility]/ZIP Co de Phone Number [facility] [address] [place] [address] * PORTABLE CHEST PA CENTRAL LINE/PICC/ET TUBE,INITIAL INSERTION (03/19/2017 11:08 EDT) Anatomical Region Laterality Modality Other 03/19/2017 11:0 8 EDT 03/19/2017 14:58 EDT Narrative 03/19/2017 14:58 EDT PORTABLE CHEST 1 VIEW INITIAL LINE, ET INSERTION ??03/19/2017 11:08 AM Clinical History/Comments: ETT and left chest tube placement Comparison: Portable AP chest radiograph from 10 hours earlier. FINDINGS: Single portable semiupright AP view of the chest. Lines/tubes: ??Endotracheal tube in the mid trachea. Transesophageal tube tip distal to the GE junction. A left chest tube projects over the lower left hemithorax. Numerous support lines overlie the chest. Soft tissues, bones and extrathoracic findings: No significant abnormalities. Cardiac and mediastinal contours: Large anterior mediastinal mass is again seen projecting into the left paramediastinal region with adjacent left lung atelectasis. Lungs: Lung volumes are diminished. There is a residual left pleural effusion with blunting of the left costophrenic angle. Small right pleural effusion is also suspected. Hazy opacities in the bases likely reflect areas of atelectasis, though can't exclude an underlying infiltrate. Left apical opacity can represent atelectasis or extension of pleural fluid into this region, though can't exclude an underlying infiltrate. No pneumothorax demonstrated although a pneumothorax cannot be entirely excluded on this non upright portable AP chest film. Impression: Interval placement of a left chest tube with previously demonstrated large left pleural effusion decreased in volume although residual left pleural effusion persists. Low lung volumes and bibasilar atelectasis. Redemonstration of large anterior mediastinal mass projecting into the left paramediastinal region with adjacent left lung atelectasis. Procedure Note Stanislaw Hurt MD - 03/19/2017 PORTABLE CHEST 1 VIEW INITIAL LINE, ET INSERTION 03/19/2017 11:08 AM Clinical History/Comments: ETT and left chest tube placement Comparison: Portable AP chest radiograph from 10 hours earlier. FINDINGS: Single portable semiupright AP view of the chest. Lines/tubes: Endotracheal tube in the mid trachea. Transesophageal tube tip distal to the GE junction. A left chest tube projects over the lower left hemithorax. Numerous support lines overlie the chest. Soft tissues, bones and extrathoracic findings: No significant abnormalities. Cardiac and mediastinal contours: Large anterior mediastinal mass is again seen projecting into the left paramediastinal region with adjacent left lung atelectasis. Lungs: Lung volumes are diminished. There is a residual left pleural effusion with blunting of the left costophrenic angle. Small right pleural effusion is also suspected. Hazy opacities in the bases likely reflect areas of atelectasis, though can't exclude an underlying infiltrate. Left apical opacity can represent atelectasis or extension of pleural fluid into this region, though can't exclude an underlying infiltrate. No pneumothorax demonstrated although a pneumothorax cannot be entirely excluded on this non upright portable AP chest film. Impression: Interval placement of a left chest tube with previously demonstrated large left pleural effusion decreased in volume although residual left pleural effusion persists. Low lung volumes and bibasilar atelectasis. Redemonstration of large anterior mediastinal mass projecting into the left paramediastinal region with adjacent left lung atelectasis. Serina Stovall MD IMG DIAGNOSTIC IMAG ING ORDERABLES * FLUID DIFFERENTIAL (03/19/2017 10:51 EDT) Neutrophils, Fluid 1 % 03/20/2017 11:[address] [facility] Lymphocytes, Fluid 82 % 03/20/2017 11:[address] [facility] [place]/Macro, Fluid 11 % 03/20/2017 11:[address] [facility] Mesothelial 6 % 03/20/2017 11:[address] [facility] Fluid Comment Rev'd by Pathologist 03/20/2017 11:[address] [facility] PLEURAL FLUID SPECIMEN / Unknown 03/19/2017 10:51 EDT 03/19/2017 11:21 EDT Serina Stovall MD GEN LAB UNIT COLLEC T ORDERABLES [facility] [address] [place] [address] * ANAEROBE CULTURE/SMEAR(INC. AEROBES), FLUID (03/19/2017 10:51 EDT) Gram Smear Result Polys present 03/19/2017 13:[address] [facility] Gram Smear Result No bacteria seen 03/19/2017 13:[address] [facility] Result No growth 03/21/2017 12:[address] [facility] FOSMIC PLEURAL FLUID SPECIMEN / Unknown 03/19/2017 10:51 EDT 03/19/2017 11:39 EDT Comment:Left~Specimen submit wesley in a syringe Serina Stovall MD MICROBIOLOGY - GENE RAL ORDERABLES Performing Organization Address City/[facility]/ZIP Co de Phone Number [facility] [address] [place] [address] * FUNGUS CULTURE/SMEAR, OTHER (03/19/2017 10:51 EDT) Fungal Smear No fungi seen 03/21/2017 10:[address] [facility] Result No fungi isolated 03/28/2017 9:[address] [facility] FOSMIC PLEURAL FLUID SPECIMEN / Unknown 03/19/2017 10:51 EDT 03/19/2017 11:39 EDT Comment:Left Serina Stovall MD MICROBIOLOGY - GENE RAL ORDERABLES Performing Organization Address City/[facility]/ZIP Co de Phone Number [facility] [address] [place] [address] * BACTERIAL CULTURE/SMEAR, FLUID (03/19/2017 10:51 EDT) Gram Smear Result Aerobic culture is included as part of an anaerobe culture request. This is a duplicate request. 03/19/2017 11:[address] [facility] Gram Smear Result Credit Issued 03/19/2017 11:[address] [facility] Result Aerobic culture is included as part of an anaerobe culture request. This is a duplicate request. 03/19/2017 11:[address] [facility] Result Credit Issued 03/19/2017 11:[address] [facility] FOSMIC PLEURAL FLUID SPECIMEN / Unknown 03/19/2017 10:51 EDT 03/19/2017 11:38 EDT Comment:Left Serina tSovall MD MICROBIOLOGY - GENE RAL ORDERABLES Performing Organization Address City/[facility]/ZIP Co de Phone Number [facility] [address] [place] [address] * AFB CULTURE/SMEAR, OTHER (03/19/2017 10:51 EDT) Acid Fast No acid-fast bacilli seen 03/21/2017 13:[address] [facility] Result No acid-fast bacilli isolated 03/28/2017 13:[address] [facility] PLEURAL FLUID SPECIMEN / Unknown 03/19/2017 10:51 EDT 03/19/2017 11:38 EDT Comment:Left Serina Stovall MD MICROBIOLOGY - GENE RAL ORDERABLES Performing Organization Address [facility] Co de Phone Number [facility] [address] [place] [address] * FLUID CELL COUNT (03/19/2017 10:51 EDT) Pathologist [facility] RBC, Fluid <10,000 /cmm 03/19/2017 12:[address] [facility] Nucleated Cells 800 /cmm 03/19/2017 12:[address] [facility] Fluid Comment Yellow 03/19/2017 12:[address] [facility] Comment: HAZY Results may not be reliable FEW CLUMPS PRESENT LEFT PLEURAL FLUID [facility] PLEURAL FLUID SPECIMEN / Unknown 03/19/2017 10:51 EDT 03/19/2017 11:21 EDT Serina Stovall MD GEN LAB UNIT COLLEC T ORDERABLES Performing Organization Address [facility] Co de Phone Number [facility] [address] [place] [address] * TOTAL PROTEIN, FLUID (03/19/2017 10:51 EDT) Protein, Fluid 3.7 g/dl 03/19/2017 11:[address] [facility] Comment: Reference Range: Pleural fluid specimen (specimen) Exudate > 3.0 g/dl Pleural fluid specimen (specimen) Transudate <3.0 g/dl Peritoneal fluid sample (specimen) Serum ascites to albumin gradient (SAGG) superior to total protein content in differentiating causes of effusion. PLEURAL FLUID [facility] PLEURAL FLUID SPECIMEN / Unknown 03/19/2017 10:51 EDT 03/19/2017 11:21 EDT Serina Stovall MD GEN LAB UNIT COLLE T ORDERABLES Performing Organization Address [facility] Co de Phone Number [facility] [address] [place] [address] * PH, PLEURAL FLUID (03/19/2017 10:51 EDT) Pleural Fluid pH 7.32 03/19/20 17 11:[address] [facility] Comment: Reference range: Pleural fluid Exudate: 7.30-7.45 Transudate: 7.40-7.55 A pleural fluid pH <7.30 is generally associated with a complicated parapneumonic effusion, empyema, connective tissue disease of the pleura or malignant effusion. Interpret results with caution. Results may be affected due to prolonged transport of sample to lab before analysis. [facility] PLEURAL FLUID SPECIMEN / Unknown 03/19/2017 10:51 EDT 03/19/2017 11:21 EDT Serina Stovall MD GEN LAB UNIT COLLE T ORDERABLES Performing Organization Address [facility]/ZIP Co de Phone Number [facility] [address] [place] [address] * LDH, FLUID (03/19/2017 10:51 EDT) LDH, Fluid 434 U/L 03/19/2017 11:[address] [facility] Comment: Pleural fluid specimen (specimen) Reference Range: Suggestive of exudate if fluid cholesterol is > 45 mg/dl or fluid LDH is greater than 0.45 times the upper limit of normal serum LDH levels. Peritoneal fluid sample (specimen) No reference range available PLEURAL FLUID [facility] PLEURAL FLUID SPECIMEN / Unknown 03/19/2017 10:51 EDT 03/19/2017 11:21 EDT Serina Stovall MD GEN LAB UNIT COLLE T ORDERABLES Performing Organization Address City/[facility]/ZIP Co de Phone Number [facility] [address] [place] [address] * GLUCOSE, FLUID (03/19/2017 10:51 EDT) Glucose, Fluid 121 mg/dl 03/19/2017 11:[address] [facility] Comment: Reference Range: Pleural fluid specimen (specimen) Low glucose is accepted as <60 mg/dl or pleural fluid to serum glucose ratio of <0.5. Peritoneal fluid sample (specimen) Low glucose is generally accepted as <50 mg/dl. PLEURAL FLUID [facility] PLEURAL FLUID SPECIMEN / Unknown 03/19/2017 10:51 EDT 03/19/2017 11:21 EDT Serina Stovall MD GEN LAB UNIT [facility] T ORDERABLES Performing Organization Address [facility] Co de Phone Number [facility] [address] [place] [address] * FLUID TYPE (03/19/2017 10:51 EDT) Fluid type PLEURAL (>100ML PREFERRED) 03/19/2017 10:[address] [facility] PLEURAL FLUID SPECIMEN / Unknown 03/19/2017 10:51 EDT 03/19/2017 11:21 EDT Serina Stovall MD GEN LAB UNIT [facility] T ORDERABLES Performing Organization Address City/[facility]/ZIP Co de Phone Number [facility] [address] [place] [address] * (ABNORMAL) BLOOD GAS, G3 ISTAT (03/19/2017 9:01 EDT) pH, i-STAT 7.08(L) 7.35 - 7.45 03/19/2017 9:[address] [facility] pCO2, i-STAT >130(H) 35 - 45 mmHg 03/21/2017 7:52 [facility] pO2, i-STAT 114(H) 80 - 105 mmHg 03/19/2017 9:[address] [facility] TCO2, i-STAT <> 23 - 27 mEq/L 03/19/2017 9:06 [facility] O2 Saturation <> 95 - 98 % 03/19/2017 9:06 [facility] Base Excess, i-STAT <> 03/19/2017 9:06 [facility] FIO2 60 03/19/2017 9:06 [facility] Sample Type ARTERIAL 03/19/2017 9:06 [facility] jamb cutter ID [id number] 03/19/2017 9:06 [facility] Comment: Test Performed by Respiratory For non-arterial reference ranges, please see ISTAT procedure. BLOOD SPECIMEN / Unknown 03/19/2017 9:01 EDT 03/19/2017 9:06 EDT Ariel Perez MD CHEMISTRY & BLO OD GAS ORDERABLES Performing Organization Address City/State/[facility] Co de Phone Number [facility] [address] [place] [address] * (ABNORMAL) BLOOD GAS, G3 ISTAT (03/19/2017 6:16 EDT) pH, i-STAT 7.03(L) 7.35 - 7.45 03/19/2017 6:[address] [facility] pCO2, i-STAT >130(H) 35 - 45 mmHg 03/21/2017 7:52 [facility] pO2, i-STAT 81 80 - 105 mmHg 03/19/2017 6:21 [facility] TCO2, i-STAT <> 23 - 27 mEq/L 03/19/2017 6:[address] [facility] O2 Saturation <> 95 - 98 % 03/19/2017 6:[address] [facility] Base Excess, i-STAT <> 03/19/2017 6:[address] [facility] FIO2 60 03/19/2017 6:[address] [facility] Sample Type VENOUS 03/19/2017 6:[address] [facility] jamb cutter ID [id number] 03/19/2017 6:[address] [facility] Comment: Test Performed by Respiratory For non-arterial reference ranges, please see ISTAT procedure. BLOOD SPECIMEN / Unknown 03/19/2017 6:16 EDT 03/19/2017 6:21 EDT Ariel Perez MD CHEMISTRY & BLO OD GAS ORDERABLES Performing Organization Address [facility] Co de Phone Number [facility] [address] [place] [address] * HEPARIN LEVEL - UNFRACTIONATED HEPARIN (03/19/2017 6:02 EDT) Heparin Level-UFH 0.50 IU/mL 017 7:[address] [facility] Comment: Unfractionated heparin therapeutic range = 0.3-0.7 IU/ml This test is not intended for monitoring direct Xa inhibitors, direct thrombin inhibitors, or fondaparinux. Exogenous ATIII is NOT supplied in this assay. For unexpected or persistently low levels, consider measuring patient's ATIII level. Blood specimen (specimen) BLOOD SPECIMEN / Unknown 03/19/2017 6:02 EDT 03/19/2017 6:47 EDT Brennan Larson MD HEMATOLOGY & PF4 ORD ERABLES Performing Organization Address City/[facility]/ZIP Co de Phone Number [facility] [address] [place] [address] * (ABNORMAL) HEMAGRAM AND DIFFERENTIAL (03/19/2017 6:02 EDT) WBC 7.40 4.0 - 12.4 K/cmm 03/19/2017 6:55 [facility] RBC 4.82 3.86 - 5.04 M/cmm 03/19/2017 6:55 [facility] Hemoglobin 15.9(H) 11.6 - 15.2 gm/dl 03/19/2017 6:55 [facility] HCT 51.0(H) 34.9 - 44.4 % 03/19/2017 6:55 [facility] MCV 106(H) 81 - 98 fl 03/19/2017 6:55 [facility] MCH 33.0 26.7 - 33.3 pg 03/19/2017 6:55 [facility] MCHC 31.2(L) 32.1 - 35.9 gm/dl 03/19/2017 6:55 [facility] RDW-CV 13.0 <14.7 % 03/19/2017 6:55 [facility] RDW-SD 51.5(H) <50.4 fl 03/19/2017 6:55 [facility] PLT 239 141 - 377 K/cmm 03/19/2017 6:55 [facility] MPV 9.8 9.5 - 12.7 fl 03/19/2017 6:55 [facility] % Neutrophils 84.2 % 03/19/2017 6:55 [facility] % Lymphocytes 4.6 % 03/19/2017 6:55 [facility] % Monocytes 10.3 % 03/19/2017 6:55 [facility] % Eosinophils 0.1 % 03/19/2017 6:55 [facility] % Basophils 0.4 % 03/19/2017 6:55 [facility] % Immature Grans 0.4 % 03/19/2017 6:55 [facility] ABS Neutrophils 6.23 2.20 - 8.85 K/cmm 03/19/2017 6:55 [facility] ABS Lymphs 0.34(L) 1.09 - 3.30 K/cmm 03/19/2017 6:55 [facility] ABS Monocytes 0.76 0.1 - 0.8 K/cmm 03/19/2017 6:55 [facility] ABS Eosinophils 0.01(L) 0.03 - 0.61 K/cmm 03/19/2017 6:[address] [facility] ABS Basophils 0.03 0.01 - 0.11 K/cmm 03/19/2017 6:55 [facility] ABS Immature Grans 0.03 0 - 0.06 K/cmm 03/19/2017 6:[address] [facility] Type of Diff: Automated 03/19/2017 6:55 [facility] Blood specimen (specimen) BLOOD SPECIMEN / Unknown 03/19/2017 6:02 EDT 03/19/2017 6:47 EDT Beti Guerrier DO PACKAGES & DNA PRO BE ORDERABLES Performing Organization Address [facility] de Phone Number [facility] [address] [place] [address] * (ABNORMAL) CREATININE (03/19/2017 6:02 EDT) Creatinine 0.50(L) 0.52 - 1.04 mg/dl 03/19/2017 7:[address] [facility] GFR, Calculated 106 >60 ml/min/1.7 3m2 03/19/2017 7:[address] [facility] Comment: eGFR calculated using CKD-EPI equation for non Americans. Multiply eGFR by 1.16 for Americans. Blood specimen (specimen) BLOOD SPECIMEN / Unknown 03/19/2017 6:02 EDT 03/19/2017 6:47 EDT Brennan Larson MD CHEMISTRY & BLOOD GA S ORDERABLES Performing Organization Address [facility] Co de Phone Number [facility] [address] [place] [address] * (ABNORMAL) BUN (03/19/2017 6:02 EDT) BUN 9(L) 10 - 26 mg/dl 03/19/2017 7:[address] [facility] Blood specimen (specimen) BLOOD SPECIMEN / Unknown 03/19/2017 6:02 EDT 03/19/2017 6:47 EDT Brennan Larson MD CHEMISTRY & BLOOD GA S ORDERABLES Performing Organization Address [facility] de Phone Number [facility] [address] [place] [address] * (ABNORMAL) ELECTROLYTES (03/19/2017 6:02 EDT) Sodium 139 136 - 145 mEq/L 03/19/2017 7:[address] [facility] Potassium 5.1(H) 3.5 - 5.0 mEq/L 03/19/2017 7:[address] [facility] Chloride 91(L) 96 - 110 mEq/L 03/19/2017 7:[address] [facility] CO2 41(H) 22 - 32 mEq/L 03/19/2017 7:[address] [facility] Blood specimen (specimen) BLOOD SPECIMEN / Unknown 03/19/2017 6:02 EDT 03/19/2017 6:47 EDT Beti Guerrier DO CHEMISTRY & BLOOD GAS ORDERABLES Performing Organization Address [facility] de Phone Number [facility] [address] [place] [address] * (ABNORMAL) PROTIME (03/19/2017 6:02 EDT) Pro Time 13.8(H) 10.3 - 13.1 secs 03/19/2017 7:[address] [facility] I.N.R. 1.2(H) 0.9 - 1.1 Ratio 03/19/2017 7:[address] [facility] Comment: Moderate Intensity Coumadin INR = 2.0-3.0 Adjustments in anticoagulant therapy dose should be based upon the INR and NOT the Pro Time. Blood specimen (specimen) BLOOD SPECIMEN / Unknown 03/19/2017 6:02 EDT 03/19/2017 6:47 EDT Brennan Larson MD HEMATOLOGY & PF4 ORD ERABLES Performing Organization Address City/[facility]/ZIP Co de Phone Number [facility] [address] [place] [address] * (ABNORMAL) BLOOD GAS, G3 ISTAT (03/19/2017 1:35 EDT) pH, i-STAT 7.14(L) 7.35 - 7.45 03/19/2017 1:[address] [facility] pCO2, i-STAT 121(H) 35 - 45 mmHg 03/19/2017 1:[address] [facility] pO2, i-STAT 57(L) 80 - 105 mmHg 03/19/2017 1:[address] [facility] TCO2, i-STAT 45(H) 23 - 27 mEq/L 03/19/2017 1:[address] [facility] O2 Saturation 76(L) 95 - 98 % 03/19/2017 1:[address] [facility] Base Excess, i-STAT 6 03/19/2017 1:[address] [facility] FIO2 100 03/19/2017 1:[address] [facility] Sample Type VENOUS 03/19/2017 1:[address] [facility] jamb cutter ID [id number] 03/19/2017 1:[address] [facility] Comment: Test Performed by Respiratory For non-arterial reference ranges, please see ISTAT procedure. BLOOD SPECIMEN / Unknown 03/19/2017 1:35 EDT 03/19/2017 1:41 EDT Ariel Perez MD CHEMISTRY & BLO OD GAS ORDERABLES [facility] [address] [place] [address] * CYTOPATHOLOGY (03/19/2017 0:00 EDT) Pathology Report: CYTOPATHOLOGY REPORT Reports generated via electronic interface contain original data; however they are lacking the format of the original report. Caution should be taken when reading/interpret ing unformatted reports. Name: ? BRYAAN JARAMILLO ? Accession #: ? [id number] : ? 1955 (Age: 61) ??F ?Collect Date: ? 03/19/2017 Location: ? M004 ? Receive Date: ? 03/21/2017 Provider: ? SERINA STOVALL MD Copy to: ?ARIEL PEREZ MD ? CYTOLOGIC DIAGNOSIS: PLEURAL FLUID, LEFT, CYTOLOGIC EVALUATION: - Negative for malignant cells. See comment. ? COMMENT: The specimen is composed by numerous reactive mesothelial cells in a background of scattered lymphocytes. Rare multinucleated giant cells are present. Dr. Felix 03/21/2017 2:53 PM Document reviewed and electronically signed by: ? MARIA A PARDO MD Report Date: ??03/21/2017 15:39 By the signature above, the attending physician certifies that he/she has personally conducted a gross and/or microscopic examination of the described specimens and rendered or confirmed the above diagnosis. Specimen Type: ? Pleural Fluid, Left Clinical History: ? Anterior mediastinal lung mass ? Gross Description: ? 25ccs of clear yellow fluid were received and processed by selective cellular enhancement technique. ? End of Report [facility] 03/19/2017 03/21/2017 7:4 1 EDT Serina Stovall MD PATHOLOGY ORDERABLE S [facility] [address] [place] [id number] * FLOW CYTOMETRY (03/19/2017 0:00 EDT) Pathologist [facility] Pathology Report: FLOW CYTOMETRY ??REPORT Reports generated via electronic interface contain original data; however they are lacking the format of the original report. Caution should be taken when reading/interpreting unformatted reports. Name: ? BRAYAN JARAMILLO ? Accession #: ? [id number] ? : ? 1955 (Age: 61) ??F ?Collect Date: ? 03/19/2017 ? Location: ? B003 ? Receive Date: ? 03/19/2017 ? Provider: ARIEL PEREZ MD Copy to: SERINA STOVALL MD ? Addendum ? Date Ordered: ? 03/24/2017 ? Status: Signed Out ? Date Complete: ? 03/24/2017 ? By: Sarah Rush ? Date Reported: ? 03/24/2017 ? Addendum Diagnosis ? This addendum is issued to correct the source of the specimen. ??There is no change in diagnosis. ? The specimen is pleural fluid. Document reviewed and electronically signed by: ? GIFTY SLACEDO MD ? Report date: 03/24/2017 By the signature above, the attending physician certifies that he/she has personally conducted a gross and/or microscopic examination of the described specimens and rendered or confirmed the above diagnosis. Final Report Immunophenotype Analysis: ? No immunophenotypic evidence of a clonal cell population. ??See comment. ?? Description: ? The results of flow cytometry show no immunophenotypic evidence of involvement by a clonal lymphoproliferative disorder. ??Correlation of these findings with morphologic and clinical data is essential. ??Please refer to pathology report number [id number] for morphologic details. ? The specimen consists of lymph node tissue from which a single cell suspension is prepared. ?? Gating is performed using CD45 fluorescence and side scatter. ??Cellular viability (assessed by propidium iodide exclusion) is adequate (69%) among ??the CD45 positive events. ??Expression of the following antigens is tested: CD2, CD3, CD4, CD5, CD7, CD8, CD10, CD11b, CD11c, CD14, CD16, CD19, CD20, CD22, CD23, CD38, CD45, CD56, CD57, FMC-7, HLA-DR, kappa, lambda. A majority of the lymphoid cells are T-lymphocytes (CD2+CD3+CD5+CD7+) with CD4+ and CD8+ subsets represented. ??The remaining lymphocytes are B-lymphocytes (CD19+CD20+). ??B-cells are few in number but appear polytypic. ?? This test was developed and its performance characteristics determined by the Department of Pathology and Laboratory Medicine, [facility], [place], [place]. ??It has not been cleared or approved by the U.S. Food and Drug Administration. ??FDA does not require this test to go through premarket FDA review. ??This test is used for clinical purposes. ??It should not be regarded as investigational or for research. ??This laboratory is certified under the Clinical Laboratory Improvement Amendments (CLIA) as qualified to perform high complexity clinical laboratory testing. ? Clinical History: ? Anterior mediastinal lung mass. ? Pleural Fluid - Flow Cytometry Specimen Type: ??Pleural Fluid - Flow Cytometry Document reviewed and electronically signed by: ? GIFTY SALCEDO MD ? Report ??Date: 03/22/2017 11:18 By the signature above, the attending physician certifies that he/she has personally conducted an evaluation of the described specimen and rendered or confirmed the above diagnosis. End of Report [facility] 03/19/2017 03/19/2017 12: 20 EDT Ariel Perez MD PATHOLOGY ORDER DOM [facility] [address] [place] [address] * PORTABLE CHEST 1 VIEW (03/18/2017 23:59 EDT) Anatomical Region Laterality Modality Other 03/18/2017 23:5 9 EDT 03/19/2017 9:28 EDT Narrative 03/19/2017 9:28 EDT PORTABLE CHEST 1 VIEW ??03/18/2017 11:59 PM Clinical History/Comments: HYpoxia Comparison: Chest CT obtained 12 hours prior. Findings: Single portable AP view of the chest. Lines/tubes: ??None Soft tissues and bones: Rounded soft tissue density in the right axilla. Cardiac and mediastinal contours: The left cardiac contour is obscured. Large anterior mediastinal mass seen on CT projects into the left upper lung, adjacent to the aortic arch. Lungs: Linear opacities compatible with discoid atelectasis or scarring noted in the medial right lung base. Of the left lung is obscured by the large pleural effusion Pleura: Large left pleural effusion, as confirmed by recent CT. Impression: 1. ??Large left pleural effusion, as reported on outside CT. 2. ??Mediastinal widening, consistent with anterior mediastinal mass identified on outside CT 3. ??Rounded soft tissue density in the right axilla which was not imaged on CT. I have personally reviewed the images and the above interpretation and agree with the findings. Procedure Note Stanislaw Hurt MD - 03/19/2017 PORTABLE CHEST 1 VIEW 03/18/2017 11:59 PM Clinical History/Comments: HYpoxia Comparison: Chest CT obtained 12 hours prior. Findings: Single portable AP view of the chest. Lines/tubes: None Soft tissues and bones: Rounded soft tissue density in the right axilla. Cardiac and mediastinal contours: The left cardiac contour is obscured. Large anterior mediastinal mass seen on CT projects into the left upper lung, adjacent to the aortic arch. Lungs: Linear opacities compatible with discoid atelectasis or scarring noted in the medial right lung base. Of the left lung is obscured by the large pleural effusion Pleura: Large left pleural effusion, as confirmed by recent CT. Impression: 1. Large left pleural effusion, as reported on outside CT. 2. Mediastinal widening, consistent with anterior mediastinal mass identified on outside CT 3. Rounded soft tissue density in the right axilla which was not imaged on CT. I have personally reviewed the images and the above interpretation and agree with the findings. Pardeep Shea MD IMG DIAGNOSTIC IMAGI NG ORDERABLES * SECONDARY READ CHEST CT (03/18/2017 22:57 EDT) Anatomical Region Laterality Modality Other 03/18/2017 22:5 7 EDT 03/20/2017 13:41 EDT Narrative 03/20/2017 13:41 EDT SECONDARY READ CHEST CT ??03/18/2017 10:57 PM Clinical History/Comments: Routine/Other-Please Explain in the Next Question; Confirm and/or further findings OSH CT findings of large anterior mediastinal mass03/18/17 CTA CHEST W/WO CONTRAST...W/FINAL REPORT... Technique: CT of the chest performed at [facility] on March 18, 2017. IV contrast was administered. Images reformatted at 1.25 mm were obtained from the lower neck through the upper abdomen. Comparison: Correlation to chest radiograph performed March 18 and March 19, 2017. Findings: Lower neck: No abnormalities. Chest wall soft tissues: Subcutaneous edema is visualized in the ventral left abdominal wall. Mediastinum and william: There is a lobulated soft tissue mass in the anterior mediastinum measuring approximately 8.8 x 4.8 x 8.8 cm (image 197, series 3; image 47, series 602) with punctate coarse calcifications without a well-defined capsule. There is suspicious mediastinal lymphadenopathy. For example, a conglomeration of right paratracheal lymph nodes measures 2.2 x 1.6 cm (image 153, series 3). ??Prevascular lymphadenopathy measures up to 2.9 x 2.8 cm (image 161, series 3). A subcarinal lymph node is boardlike prominent in size measuring 2.3 x 1.2 cm. A nonenlarged paraesophageal lymph node measures 1.4 x 0.97 m (image 203, series 3). No bilateral axillary or bilateral hilar lymphadenopathy. Heart and mediastinal vasculature: ??No abnormalities. No filling defects are visualized in the pulmonary arteries to suggest pulmonary embolus. Lobulated nodularity extends along the anterior pericardial surface. Large airways: ??No abnormalities. Lungs: ??Linear opacity in the right lower lobe is likely subsegmental atelectasis or scarring. Left lower lobe passive atelectasis is also visualized. ?? Pleura: There is a moderate to large left and small right pleural effusion. Multifocal nodular enhancement pleural thickening is visualized in the left hemithorax. For example (image 128, series 3) there is a pleural-based nodule measuring 2.4 x 1.3 cm. Pleural thickening and nodularity extends along the mediastinal pleural surface where a pleural-based enhancing nodule measures 1.5 x 1.0 cm (image 85, series 3). No pneumothorax. No pleural thickening is visualized in the right hemithorax. Upper abdomen (limited to upper abdomen, not optimized for abdominal imaging): No abnormalities. Bones: ??No significant abnormalities. Impression: 1. ??Suspicious lobulated anterior mediastinal calcified soft tissue mass measuring 8.8 x 4.8 x 8.8 cm suspicious for malignancy. Differential considerations include thymoma, thymic carcinoma, lymphoma, or less likely germ cell tumor. 2. ??Suspicious mediastinal lymphadenopathy for metastatic disease. 3. ??Large left and small right pleural effusion with multifocal enhancing left pleural and pericardial nodularity suspicious for metastatic disease. Procedure Note So Mg MD - 03/20/[address] 03/18/2017 10:57 PM Clinical History/Comments: Routine/Other-Please Explain in the Next Question; Confirm and/or further findings OSH CT findings of large anterior mediastinal mass03/18/17 CTA CHEST W/WO CONTRAST...W/FINAL REPORT... Technique: CT of the chest performed at [facility] on March 18, 2017. IV contrast was administered. Images reformatted at 1.25 mm were obtained from the lower neck through the upper abdomen. Comparison: Correlation to chest radiograph performed March 18 and March 19, 2017. Findings: Lower neck: No abnormalities. Chest wall soft tissues: Subcutaneous edema is visualized in the ventral left abdominal wall. Mediastinum and william: There is a lobulated soft tissue mass in the anterior mediastinum measuring approximately 8.8 x 4.8 x 8.8 cm (image 197, series 3; image 47, series 602) with punctate coarse calcifications without a well-defined capsule. There is suspicious mediastinal lymphadenopathy. For example, a conglomeration of right paratracheal lymph nodes measures 2.2 x 1.6 cm (image 153, series 3). Prevascular lymphadenopathy measures up to 2.9 x 2.8 cm (image 161, series 3). A subcarinal lymph node is boardlike prominent in size measuring 2.3 x 1.2 cm. A nonenlarged paraesophageal lymph node measures 1.4 x 0.97 m (image 203, series 3). No bilateral axillary or bilateral hilar lymphadenopathy. Heart and mediastinal vasculature: No abnormalities. No filling defects are visualized in the pulmonary arteries to suggest pulmonary embolus. Lobulated nodularity extends along the anterior pericardial surface. Large airways: No abnormalities. Lungs: Linear opacity in the right lower lobe is likely subsegmental atelectasis or scarring. Left lower lobe passive atelectasis is also visualized. Pleura: There is a moderate to large left and small right pleural effusion. Multifocal nodular enhancement pleural thickening is visualized in the left hemithorax. For example (image 128, series 3) there is a pleural-based nodule measuring 2.4 x 1.3 cm. Pleural thickening and nodularity extends along the mediastinal pleural surface where a pleural-based enhancing nodule measures 1.5 x 1.0 cm (image 85, series 3). No pneumothorax. No pleural thickening is visualized in the right hemithorax. Upper abdomen (limited to upper abdomen, not optimized for abdominal imaging): No abnormalities. Bones: No significant abnormalities. Impression: 1. Suspicious lobulated anterior mediastinal calcified soft tissue mass measuring 8.8 x 4.8 x 8.8 cm suspicious for malignancy. Differential considerations include thymoma, thymic carcinoma, lymphoma, or less likely germ cell tumor. 2. Suspicious mediastinal lymphadenopathy for metastatic disease. 3. Large left and small right pleural effusion with multifocal enhancing left pleural and pericardial nodularity suspicious for metastatic disease. Brennan Larson MD IMG OTHER IMAGING OR DERABLES * (ABNORMAL) HEMAGRAM AND DIFFERENTIAL (03/18/2017 21:47 EDT) WBC 6.18 4.0 - 12.4 K/cmm 03/18/2017 22:16 [facility] RBC 4.80 3.86 - 5.04 M/cmm 03/18/2017 22:16 [facility] Hemoglobin 16.0(H) 11.6 - 15.2 gm/dl 03/18/2017 22:16 [facility] HCT 48.4(H) 34.9 - 44.4 % 03/18/2017 22:16 [facility] MCV 101(H) 81 - 98 fl 03/18/2017 22:16 [facility] MCH 33.3 26.7 - 33.3 pg 03/18/2017 22:16 [facility] MCHC 33.1 32.1 - 35.9 gm/dl 03/18/2017 22:16 [facility] RDW-CV 12.8 <14.7 % 03/18/2017 22:16 [facility] RDW-SD 48.2 <50.4 fl 03/18/2017 22:16 [facility] PLT 219 141 - 377 K/cmm 03/18/2017 22:16 [facility] MPV 10.0 9.5 - 12.7 fl 03/18/2017 22:16 [facility] % Neutrophils 80.0 % 03/18/2017 22:16 [facility] % Lymphocytes 8.1 % 03/18/2017 22:16 [facility] % Monocytes 10.7 % 03/18/2017 22:16 [facility] % Eosinophils 0.5 % 03/18/2017 22:16 [facility] % Basophils 0.5 % 03/18/2017 22:16 [facility] % Immature Grans 0.2 % 03/18/2017 22:16 [facility] ABS Neutrophils 4.95 2.20 - 8.85 K/cmm 03/18/2017 22:16 [facility] ABS Lymphs 0.50(L) 1.09 - 3.30 K/cmm 03/18/2017 22:16 [facility] ABS Monocytes 0.66 0.1 - 0.8 K/cmm 03/18/2017 22:16 [facility] ABS Eosinophils 0.03 0.03 - 0.61 K/cmm 03/18/2017 22:16 [facility] ABS Basophils 0.03 0.01 - 0.11 K/cmm 03/18/2017 22:16 [facility] ABS Immature Grans 0.01 0 - 0.06 K/cmm 03/18/2017 22:16 [facility] Type of Diff: Automated 03/18/2017 22:16 [facility] Blood specimen (specimen) BLOOD SPECIMEN / Unknown 03/18/2017 21:47 EDT 03/18/2017 22:02 EDT Beti Guerrier DO PACKAGES & DNA PRO BE ORDERABLES [facility] [address] [place] [address] * (ABNORMAL) CREATININE (03/18/2017 21:47 EDT) Creatinine 0.48(L) 0.52 - 1.04 mg/dl 03/18/2017 22:18 [facility] GFR, Calculated 108 >60 ml/min/1.7 3m2 03/18/2017 22:18 [facility] Comment: eGFR calculated using CKD-EPI equation for non Americans. Multiply eGFR by 1.16 for Americans. Blood specimen (specimen) BLOOD SPECIMEN / Unknown 03/18/2017 21:47 EDT 03/18/2017 22:02 EDT Brennan Larson MD CHEMISTRY & BLOOD GA S ORDERABLES [facility] [address] [place] [address] * (ABNORMAL) BUN (03/18/2017 21:47 EDT) BUN 8(L) 10 - 26 mg/dl 03/18/2017 22:[address] [facility] Blood specimen (specimen) BLOOD SPECIMEN / Unknown 03/18/2017 21:47 EDT 03/18/2017 22:02 EDT Brennan Larson MD CHEMISTRY & BLOOD GA S ORDERABLES Performing Organization Address City/[facility]/ZIP Co de Phone Number [facility] [address] [place] [address] * (ABNORMAL) ELECTROLYTES (03/18/2017 21:47 EDT) Sodium 138 136 - 145 mEq/L 03/18/2017 22:[address] [facility] Potassium 4.5 3.5 - 5.0 mEq/L 03/18/2017 22:[address] [facility] Chloride 93(L) 96 - 110 mEq/L 03/18/2017 22:[address] [facility] CO2 36(H) 22 - 32 mEq/L 03/18/2017 22:[address] [facility] Blood specimen (specimen) BLOOD SPECIMEN / Unknown 03/18/2017 21:47 EDT 03/18/2017 22:02 EDT Beti Guerrier DO CHEMISTRY & BLOOD GAS ORDERABLES [facility] [address] [place] [address] documented in this encounter Visit Diagnoses Diagnosis SOB (shortness of breath)- Primary Shortness of breath SOB (shortness of breath) Shortness of breath Lung mass Swelling, mass, or lump in chest Pleural effusion Unspecified pleural effusion Acute respiratory failure with hypoxia and hypercapnia (HCC-CMS) Mediastinal mass Swelling, mass, or lump in chest Left breast mass Lump or mass in breast Metastatic carcinoma (HCC-CMS) Other malignant neoplasm without specification of site Lung mass Swelling, mass, or lump in chest documented in this encounter Administered Medications Inactive Administered Medications - up to 3 most recent administrations Medication Order MAR Action Action Date Dose Rate Site acetaminophen (TYLENOL) tablet 1,000 mg 1,000 mg, oral, EVERY 6 HOURS PRN, Starting on 03/22/17 at 0923, Until 03/27/17 at 1516, Pain, Routine Given 03/26/2017 2:46 EDT 1,000 mg Given 03/24/2017 22:47 EDT 1,000 mg Given 03/23/2017 20:33 EDT 1,000 mg bisacodyl (DULCOLAX) suppository 10 mg 10 mg, rectal, DAILY PRN, Starting on 03/19/17 at 1249, Until 03/27/17 at 1516, Constipation, Routine dexmedetomidine in 0.9 % NaCl (PRECEDEX) 400 mcg/100 mL infusion 0.2-1.4 mcg/kg/hr ? 126.4 kg (6.32-44.24 mL/hr, rounded to 6.3-44.2 mL/hr), intravenous, CONTINUOUS, Starting on 03/20/17 at 0845, Until 03/21/17 at 1427, STAT Rate Change-ICU/L&D Only 03/21/2017 11:00 EDT 0.01 mcg/kg/hr 0.3 mL/hr Rate Change-ICU/L&D Only 03/21/2017 10:00 EDT 0.02 mcg/kg/ hr 0.6 mL/hr Rate Documented 03/21/2017 9:04 EDT 0.2 mcg/kg/hr 6.3 mL/h r DILTiazem (TIAZAC) ER capsule 240 mg 240 mg, oral, DAILY, First dose on 03/19/17 at 0900, Until Discontinued, Routine Given 03/19/2017 14:00 EDT 240 mg DILTiazem (TIAZAC) ER capsule 240 mg 240 mg, oral, DAILY, First dose (after last reorder) on 03/20/17 at 1345, Until Discontinued, Routine Given 03/27/2017 8:25 EDT 240 mg Given 03/26/2017 8:59 EDT 240 mg Given 03/25/2017 8:37 EDT 240 mg docusate sodium (COLACE) capsule 200 mg 200 mg, oral, 2 TIMES DAILY PRN, Starting on Tue03/20/17 at 1122, Until Tue03/27/17 at 1516, Constipation, Routine enoxaparin (LOVENOX) injection 40 mg 40 mg, subcutaneous, AT BEDTIME, First dose on Tue03/23/17 at 2100, Until Discontinued, Routine Given 03/23/2017 20:39 EDT 40 mg famotidine (PEPCID) injection 20 mg 20 mg, intravenous, 2 TIMES DAILY, First dose on 03/19/17 at 2100, Until Discontinued, Routine Given 03/21/2017 8:57 EDT 20 mg Given 03/20/2017 21:59 EDT 20 mg Given 03/20/2017 8:28 EDT 20 mg fentaNYL citrate (PF) 50 mcg/mL injection 25-250 mcg 25-250 mcg, intravenous, ONCE PRN, 1 dose, Starting on Tue03/22/17 at 1359, Until Tue03/22/17 at 1429, Pain, radiology, Routine, Intraprocedure Given 03/22/2017 14:29 EDT 25 mcg fentaNYL citrate (PF) 50 mcg/mL injection 50 mcg 50 mcg, intravenous, EVERY 1 HOUR PRN, Starting on 03/19/17 at 1101, Until Tue03/21/17 at 1104, Pain, Routine Given 03/20/2017 15:28 EDT 50 mcg Given 03/20/2017 9:23 EDT 50 mcg Given 03/19/2017 11:15 EDT 50 mcg haloperidol lactate (HALDOL) injection 5 mg 5 mg, intravenous, NOW X1, 1 dose, On 03/20/17 at 1645, Routine Given 03/20/2017 16:27 EDT 5 mg heparin 1,000 unit/mL injection 3,200 Units 3,200 Units (rounded from 3,185 Units = 35 Units/kg ? 91 kg Adjusted weight), intravenous, PRN, Starting on Tue03/18/17 at 2235, Until Tue03/21/17 at 1903, Other, Per Heparin Protocol, Routine Given 03/19/2017 20:44 EDT 3,200 Units heparin in 1/2 NS 25,000 unit/250 mL infusion 17 Units/kg/hr ? 91 kg Adjusted weight (15.47 mL/hr, rounded to 15.5 mL/hr), intravenous, CONTINUOUS, Starting on Tue03/18/17 at 2300, Until Tue03/21/17 at 1903, Routine Rate Documented 03/21/2017 18:00 EDT 17 Units/kg/hr 15.5 mL/hr Rate Documented 03/21/2017 17:00 EDT 17 Units/kg/hr 15.5 m L/hr Rate Documented 03/21/2017 16:00 EDT 17 Units/kg/hr 15.5 m L/hr HYDROmorphone (DILAUDID) injection 0.2-0.5 mg 0.2-0.5 mg, intravenous, EVERY 4 HOURS PRN, Starting on Tue03/22/17 at 0000, Until Tue03/22/17 at 0921, Pain, Routine Given 03/22/2017 6:07 EDT 0.2 mg Given 03/22/2017 1:36 EDT 0.2 mg iohexol in sterile water (bottle) oral solution 900 mL, oral, NOW X1, 1 dose, On Tue03/23/17 at 1645, STAT Given 03/23/2017 17:30 EDT 900 mL ketAMINE (KETALAR) IV injection vial 100 mg 100 mg, intravenous, NOW X1, 1 dose, On 03/19/17 at 1115, Routine Given 03/19/2017 9:15 EDT 100 mg metoprolol XL (TOPROL-XL) tablet 200 mg 200 mg, oral, DAILY, First dose on 03/19/17 at 0900, Until Discontinued, Routine Given 03/27/2017 8:25 EDT 200 mg Given 03/26/2017 8:59 EDT 200 mg Given 03/25/2017 8:38 EDT 200 mg midazolam (PF) (VERSED) 1 mg/mL injection 1 mg 1 mg, intravenous, NOW X1, 1 dose, On 03/19/17 at 1200, Routine Given 03/19/2017 10:15 EDT 1 mg Multivitamins with minerals + ferrous gluconate (CENTRUM) oral solution 15 mL 15 mL, per g tube, DAILY, First dose on 03/19/17 at 1315, Until Discontinued, Routine Given 03/21/2017 9:02 EDT 15 mL Given 03/20/2017 8:28 EDT 15 mL Given 03/19/2017 13:52 EDT 15 mL Multivitamins with Minerals tablet 1 Tab 1 Tablet, oral, DAILY, First dose on Tue03/22/17 at 0900, Until Discontinued, Routine Given 03/27/2017 8:2 5 EDT 1 Tablet Given 03/26/2017 8:59 EDT 1 Tablet Given 03/25/2017 8:38 EDT 1 Tablet oxyCODONE (ROXICODONE) immediate release tablet 5-10 mg 5-10 mg, oral, EVERY 4 HOURS PRN, Starting on Tue03/21/17 at 1902, Until Tue03/21/17 at 2355, Pain, Routine Given 03/21/2017 19:57 EDT 5 mg oxyCODONE (ROXICODONE) immediate release tablet 5-10 mg 5-10 mg, oral, EVERY 4 HOURS PRN, Starting on Tue03/22/17 at 0919, Until Tue03/27/17 at 1516, Pain, Routine Given 03/26/2017 21:00 EDT 5 mg Given 03/26/2017 18:58 EDT 5 mg Given 03/25/2017 21:26 EDT 5 mg phenobarbital (LUMINAL) 200 mg in sodium chloride (NS) 0.9 % 50 mL IVPB 200 mg, intravenous, Administer over 30 Minutes, EVERY 4 HOURS, 3 doses, First dose on Tue03/20/17 at 1900, Last dose on Tue03/21/17 at 0300, STAT Given 03/21/2017 3:03 EDT 200 mg Given 03/20/2017 22:32 EDT 200 mg Given 03/20/2017 18:59 EDT 200 mg polyethylene glycol 3350 (MIRALAX) packet 17 g 17 g, oral, DAILY, First dose (after last modification) on Tue03/21/17 at 1115, Until Discontinued, Routine Given 03/23/2017 8:28 EDT 17 g propOFol (DIPRIVAN) 10 mg/mL injection 1 dose, Starting on 03/19/17 at 0912, Until 03/19/17 at 1402 propOFol (DIPRIVAN) 1000 mg in 100 mL infusion 5-83 mcg/kg/min ? 126.4 kg (3.792-62.9472 mL/hr, rounded to 3.8-62.9 mL/hr), intravenous, CONTINUOUS, Starting on 03/19/17 at 1115, Until 03/20/17 at 1117, Routine Rate Change-ICU/L&D Only 03/20/2017 8:58 EDT 10 mcg/kg/min 7.6 mL/hr Rate Change-ICU/L&D Only 03/20/2017 8:45 EDT 20 mcg/kg/min 15.2 mL/hr Rate Change-ICU/L&D Only 03/20/2017 8:25 EDT 30 mcg/kg/min 22.8 mL/hr replete nutritional supplement liquid at 30 mL/hr, per g tube, CONTINUOUS, Starting on 03/19/17 at 1315, Until 03/20/17 at 1436, Routine Rate Documented 03/20/2017 7:00 EDT 30 mL/hr Rate Documented 03/20/2017 6:00 EDT 30 mL/hr Rate Documented 03/20/2017 5:00 EDT 30 mL/hr rocuronium (ZEMURON) injection 100 mg 100 mg, intravenous, NOW X1, 1 dose, On 03/19/17 at 1115, Routine Given 03/19/2017 10:15 EDT 100 mg senna (SENOKOT) tablet 2 Tab 2 Tablet, oral, DAILY PRN, Starting on 03/20/17 at 1122, Until 03/27/17 at 1516, Constipation, Routine documented in this encounter Historical Medications * This list may reflect changes made after this encounter. Medication Sig Dispensed Refills Start Date End Date metoprolol XL (TOPROL-XL) 200 mg tablet Take 200 mg by mouth daily. DILTiazem (TIAZAC) 240 mg SR capsule Take 240 mg by mouth daily. apixaban (ELIQUIS) 5 mg tablet Take 5 mg by mouth 2 times daily. added in this encounter Active and Recently Administered Medications Times are shown in EDT. Scheduled Medication Order 03/25/2017 03/26/2017 03/27/2017 DILTiazem (TIAZAC) ER capsule 240 mg 240 mg, oral, DAILY, First dose (after last reorder) on 03/20/17 at 1345, Until Discontinued, Routine 0837 (Given - Provider: Viola Sigala RN) 0859 (Given - Provider: Ingrid Granger RN) 0825 (Given - Provider: Hoang Thomason RN) metoprolol XL (TOPROL-XL) tablet 200 mg 200 mg, oral, DAILY, First dose on Tue03/19/17 at 0900, Until Discontinued, Routine 0838 (Given - Provider: Viola Sigala RN) 0859 (Given - Provider: Ingrid Granger RN) 0825 (Given - Provider: Hoang Thomason RN) Multivitamins with Minerals tablet 1 Tab 1 Tablet, oral, DAILY, First dose on Tue03/22/17 at 0900, Until Discontinued, Routine 0838 (Given - Provider: Viola Sigala RN) 0859 (Given - Provider: Ingrid Granger RN) 0825 (Given - Provider: Hoang Thomason RN) polyethylene glycol 3350 (MIRALAX) packet 17 g 17 g, oral, DAILY, First dose (after last modification) on 03/21/17 at 1115, Until Discontinued, Routine 0843 (Not Given - Provider: Viola Sigala RN - Reason: Patient/family refused) 0901 (Not Given - Provider: Ingrid Granger RN - Reason: Patient/family refused) 0825 (Not Given - Provider: Hoang Thomason RN - Reason: Patient/family refused) PRN Medication Order 03/25/2017 03/26/2017 03/27/2017 acetaminophen (TYLENOL) tablet 1,000 mg 1,000 mg, oral, EVERY 6 HOURS PRN, Starting on Tue03/22/17 at 0923, Until Tue03/27/17 at 1516, Pain, Routine 0246 (Given - Provider: Mena Adams RN) bisacodyl (DULCOLAX) suppository 10 mg 10 mg, rectal, DAILY PRN, Starting on 03/19/17 at 1249, Until 03/27/17 at 1516, Constipation, Routine docusate sodium (COLACE) capsule 200 mg 200 mg, oral, 2 TIMES DAILY PRN, Starting on Tue03/20/17 at 1122, Until 03/27/17 at 1516, Constipation, Routine ondansetron (ZOFRAN-ODT) disintegrating tablet 4 mg(Linked Group 1) 4 mg, oral, EVERY 4 HOURS PRN, Starting on Tue03/18/17 at 2134, Until 03/27/17 at 1516, Nausea, Routine oxyCODONE (ROXICODONE) immediate release tablet 5-10 mg 5-10 mg, oral, EVERY 4 HOURS PRN, Starting on Tue03/22/17 at 0919, Until Tue03/27/17 at 1516, Pain, Routine 1840 (Given - Provider: Samantha Yin, RN)2126 (Given - Provider: Mena Adams, RN) 185 (Given - Provider: Ana Maria Vilaltoro, SEBASTIAN)2100 (Given - Provider: Mena Adams RN) senna (SENOKOT) tablet 2 Tab 2 Tablet, oral, DAILY PRN, Starting on Tue03/20/17 at 1122, Until Tue03/27/17 at 1516, Constipation, Routine Linked Groups Order Group 1: ondansetron (ZOFRAN-ODT) disintegrating tablet 4 mgJump to med 4 mg, oral, EVERY 4 HOURS PRN, Starting on Tue03/18/17 at 2134, Until Tue03/27/17 at 1516, Nausea, Routine Or ondansetron (ZOFRAN) 8 mg in sodium chloride (NS) 0.9 % 50 mL IVPB (CANCELED) 8 mg, intravenous, Administer over 15 Minutes, EVERY 4 HOURS PRN, Starting on Tue03/18/17 at 2134, Until Tue03/21/17 at 1903, Routine documented in this encounter Orders Medications Ordered That Shaun ht Not Have Been Administered Count Last Ordered Date First Ordered Date midazolam (PF) (VERSED) 1 mg /mL injection 0.5-10 mg 1 03/22/2017 oxyCODONE-acetaminophen (PER COCET) 5-325 mg per tablet 1 Tab 1 03/21/2017 docusate sodium (COLACE) capsule 200 mg 1 1 haloperidol lactate (HALDOL) 5 mg/mL injection 1 03/20/2017 polyethylene glycol 3350 (MS RALAX) packet 17 g 1 03/20/2017 senna (SENOKOT) tablet 2 Tab 1 03/20/2017 bisacodyl (DULCOLAX) suppository 10 mg 1 fentaNYL citrate-0.9%NaCl (P F) 5 mcg/mL (1 mL) injection 50 mcg 1 03/19/2017 midazolam (VERSED) 5 mg/mL b uccal syringe 1 mg 1 03/19/2017 NORepinephrine (LEVOPHED) in D5W 32 mcg/ml 250 ml 8 mg/250 mL (32 mcg/mL) infusion solution 1 03/19/2017 papain-alpha amylase-cellula se (CLOG ZAPPER) 2-5 mL 1 03/19/2017 heparin 1,000 unit/mL inject ion 6,400 Units 1 03/18/2017 ondansetron (ZOFRAN) 8 mg in sodium chloride (NS) 0.9 % 50 mL IVPB 1 03/18/2017 ondansetron (ZOFRAN-ODT) dis integrating tablet 4 mg 1 03/18/2017 Lab Orders Without Results Count Last Ordered D ate First Ordered Date POCT BLOOD GAS, G3 I-STAT (BASIC ABG VBG) 1 03/19/2017 Diet Count Last Ordered Date First Orde red Date DISCHARGE DIET 1 03/27/2017 Nursing Count Last Ordered Date First Orde red Date ACTIVITY INSTRUCTIONS 1 03/27/2017 BATHING INSTRUCTIONS 1 03/27/2017 DRIVING INSTRUCTIONS 1 03/27/2017 WOUND CARE INSTRUCTIONS 1 03/27/2017 CHEST TUBE TO CONTINUOUS SUCTION 1 03/23/20 17 BEDREST 1 03/22/2017 RILEY CATHETER - DISCONTINUE 1 03/21/2017 VTE PHARMACOLOGIC PROPHYLAXI S CURRENTLY ORDERED OR ON ALTERNATIVE THER 2 03/19/2017 7 PT Count Last Ordered Date First Orde red Date PT EVALUATION AND TREAT 1 03/20/2017 Respiratory Care Count Last Ordered Date First Ordered Date EXTUBATION 1 03/20/2017 RESPIRATORY CARE EVALUATION ONLY 4 03/20/20 17 03/19/2017 IV Count Last Ordered Date First Orde red Date IV REQUEST 2 03/23/2017 03/19/2017 Admission Count Last Ordered Date First Orde red Date STATUS: INPATIENT ACUTE ADMISSION 2 017 03/18/2017 Transfer Count Last Ordered Date First Orde red Date NOTIFY PPS OF DISCHARGE COMPLETE 1 03/27/20 17 PPS NOTIFICATION OF PATIENT ARRIVAL ON UNIT 3 03/25/2017 03/19/2017 PPS NOTIFICATION OF SENDING PATIENT OFF THE UNIT 1 03/25/2017 TRANSFER PATIENT 3 03/25/2017 03/19/2017 UR PATIENT STATUS CHANGE 1 03/19/2017 Discharge Count Last Ordered Date First Orde red Date DISCHARGE PATIENT 1 03/27/2017 Legal Count Last Ordered Date First Orde red Date MISCELLANEOUS DISCHARGE INSTRUCTIONS 1 03/13 Equipment Count Last Ordered Date First Orde red Date WALKER ROLLING 1 03/23/2017 documented in this encounter Care Teams Jamb Cutter Relationship Specialty Start Date End Date Unknown, Provider, PCP - General 03/18/17 04/04/17 documented as of this encounter
--- OUTSIDE RECORDS SUMMARY | 2024-02-24 01:29 | XMS_ITS | Encounter Summary ---
Author Organization [facility] Address [address] [place] [address] Care Team Providers Care Life Skills Specialist Name Role Phone Unknown, Provider Primary Care Provider Reason for Visit * Reason Onset Date Comments Discuss Possible Transfer 03/18/2017 Encounter Details Date Type Department Care Team (Late st Contact Info) Description 03/18/2017 Telephone [facility] [address] [place] [id number] Kirsten Perez MD [address] [id number] Discuss Possible Transfer Social History Tobacco Use Types Packs/Day Years Used Date Smoking Tobacco: Never Smokeless Tobacco: Never Sex and Gender Information Value Date Recorded Sex Assigned at Not on file Gender Identity Not on file Sexual Orientation Not on file documented as of this encounter Miscellaneous Notes * Telephone Encounter - Kirsten Perez MD - 03/18/2017 2418 EDT 61 yo with Afib, factor v leiden on eliquis currently in ER at [facility] ER Presented there with increasing Shortness of breath x months, + hypoxia Workup reveals new lung mass and pleural effusion 94% on 3L nc Plan accept in transfer for workup and eval Planning transiton to heparin gtt-- planning IR (vs pulm) to Bx and likely will require thora as well Accepted to Med Onc Service. D/w folefac and transfer Center 03/18/17 4:20 pm documented in this encounter Plan of Treatment Not on file documented as of this encounter Visit Diagnoses Not on filedocumented in this encounter Care Teams Life Skills Specialist Relationship Specialty Start Date End Date Unknown, Provider, PCP - General 03/18/17 04/04/17 documented as of this encounter
--- OUTSIDE RECORDS SUMMARY | 2024-02-24 01:29 | XMS_ITS | Encounter Summary ---
Author Organization [facility] Address [address] [place] [address] Care Team Providers Care Vice President Regulatory Name Role Phone Unknown, Provider Primary Care Provider Encounter Details Date Type Department Care Team (Late st Contact Info) Description 03/18/2017 Results Only Imaging [facility] [phone] Unknown, Provider, Social History Tobacco Use Types Packs/Day Years Used Date Smoking Tobacco: Never Smokeless Tobacco: Never Sex and Gender Information Value Date Recorded Sex Assigned at Not on file Gender Identity Not on file Sexual Orientation Not on file documented as of this encounter Plan of Treatment Pending Results Name Type Priority Associated Diagnoses Date /Time OUTSIDE IMAGES - OTHER CHEST Imaging 03/18/2017 14:34 EDT documented as of this encounter Visit Diagnoses Not on filedocumented in this encounter Care Teams Vice President Regulatory Relationship Specialty Start Date End Date Unknown, Provider, PCP - General 03/18/17 04/04/17 documented as of this encounter
--- OUTSIDE RECORDS SUMMARY | 2024-02-24 01:29 | XMS_ITS | Encounter Summary ---
Author Organization [facility] Address [address] [place] [address] Care Team Providers Care Inorganic Chemistry Professor Name Role Phone Unknown, Provider Primary Care Provider Encounter Details Date Type Department Care Team (Late st Contact Info) Description 03/25/2017 Results Only Imaging [facility] [phone] Omar Kennedy MD [address] [place] [address] Social History Tobacco Use Types Packs/Day Years [...] No 03/18/2017 documented as of this encounter Plan of Treatment Not on file documented as of this encounter Visit Diagnoses Not on filedocumented in this encounter Care Teams Inorganic Chemistry Professor Relationship Specialty Start Date End Date Unknown, Provider, PCP - General 03/18/17 04/04/17 documented as of this encounter
[2024-02-24 08:44] LABS: Abs Immature Grans 0.03 10^3/uL (0.0-0.06); Absolute Basophil Count 0.04 10^3/uL (0.0-0.2); Absolute Eosinophil Count 0.16 10^3/uL (0.0-0.7); Absolute Lymphocyte Count 0.45 10^3/uL (1.2-3.4); Absolute Monocyte Count 0.56 10^3/uL (0.1-0.8); Absolute Neutrophil Count 4.75 10^3/uL (1.2-6.7); Basophils % 0.7 %; Eosinophils % 2.7 %; HCT 31.9 % (36.0-46.0); Immature Grans % 0.5 %; Lymphocytes % 7.5 %; MCH 30.9 pg (27.0-33.0); MCHC 31.3 % (32.0-36.0); MCV 99 fL (80-95); MPV 10.7 fL (8.0-11.0); Monocytes % 9.3 %; Neutrophils % 79.3 %; Platelet Count 159 10^3/uL (130-400); RBC 3.24 10^6/uL (3.93-5.22); RDW 16.3 % (11.7-14.6); RDW-SD 59.7 fL; Reticulocyte 3.1 % (0.5-2.4); WBC 5.99 10^3/uL (4.4-10.8)
[2024-02-24 09:06] LABS: Iron 49 ug/dL (50-170); Total Iron Binding Capacity 187 ug/dL (250-450); Transferrin Sat 26 % (15-50)
[2024-02-24 09:46] LABS: ALT 12 U/L (14-59); AST 32 U/L (15-37); Albumin 3.5 g/dL (3.4-5.0); Alkaline Phosphatase 71 U/L (46-116); Anion Gap 6.7 mmol/L (3-11); BUN 26 mg/dL (7-18); Bilirubin, Total 0.93 mg/dL (0.2-1.0); CO2 33.3 mmol/L (21.0-32.0); CREATININE 1.3 mg/dL (0.55-1.02); Calcium 9.4 mg/dL (8.5-10.1); Chloride 99 mmol/L (98-107); Estimated GFR 45.35 (mL/min/1.73m2); Glucose 102 mg/dL (74-106); Potassium 3.7 mmol/L (3.5-5.1); Sodium 139 mmol/L (136-145); Total Protein 7.9 g/dL (6.4-8.2)
[2024-02-24 09:52] LABS: Ferritin 1888 ng/mL (8-252); Folate > 20.0 ng/mL (8.6-20.0); Vitamin B12 > 2000 pg/mL (193-986)
[2024-02-24] MEDS: Normal Saline Flush 10 ML SYR IVP (14:56)
[2024-03-02 11:03] LABS: Abs Immature Grans 0.04 10^3/uL (0.0-0.06); Absolute Basophil Count 0.07 10^3/uL (0.0-0.2); Absolute Eosinophil Count 0.24 10^3/uL (0.0-0.7); Absolute Lymphocyte Count 0.53 10^3/uL (1.2-3.4); Absolute Monocyte Count 0.17 10^3/uL (0.1-0.8); Absolute Neutrophil Count 3.38 10^3/uL (1.2-6.7); Basophils % 1.6 %; Eosinophils % 5.4 %; HGB 8.7 g/dL (11.2-15.7); Immature Grans % 0.9 %; MCH 30.2 pg (27.0-33.0); MCHC 31.1 % (32.0-36.0); MCV 97 fL (80-95); MPV 11.8 fL (8.0-11.0); Monocytes % 3.8 %; Neutrophils % 76.3 %; Nucleated RBC 0.9 % (0.0-0.3); Platelet Count 155 10^3/uL (130-400); RBC 2.88 10^6/uL (3.93-5.22); RDW 15.3 % (11.7-14.6); RDW-SD 54.7 fL; WBC 4.43 10^3/uL (4.4-10.8)
[2024-03-02 11:20] LABS: ALT 15 U/L (14-59); AST 23 U/L (15-37); Albumin 3.4 g/dL (3.4-5.0); Alkaline Phosphatase 68 U/L (46-116); Anion Gap 5.4 mmol/L (3-11); BUN 26 mg/dL (7-18); CO2 34.6 mmol/L (21.0-32.0); CREATININE 1.2 mg/dL (0.55-1.02); Calcium 9.4 mg/dL (8.5-10.1); Chloride 98 mmol/L (98-107); Estimated GFR 49.92 (mL/min/1.73m2); Glucose 99 mg/dL (74-106); Potassium 3.5 mmol/L (3.5-5.1); Sodium 138 mmol/L (136-145); Total Protein 7.5 g/dL (6.4-8.2)
[2024-03-02 11:33] LABS: Diff Comment Diff Reviewed; Hypochromasia 1+
[2024-03-02 11:34] LABS: Poikilocytes 2+
[2024-03-09 09:25] LABS: Abs Immature Grans 0.01 10^3/uL (0.0-0.06); Absolute Basophil Count 0.03 10^3/uL (0.0-0.2); Absolute Eosinophil Count 0.09 10^3/uL (0.0-0.7); Absolute Lymphocyte Count 0.29 10^3/uL (1.2-3.4); Absolute Neutrophil Count 0.62 10^3/uL (1.2-6.7); Basophils % 2.6 %; Eosinophils % 7.9 %; HCT 23.7 % (36.0-46.0); HGB 7.8 g/dL (11.2-15.7); Immature Grans % 0.9 %; Lymphocytes % 25.4 %; MCH 31.2 pg (27.0-33.0); MCHC 32.9 % (32.0-36.0); MCV 95 fL (80-95); Monocytes % 8.8 %; Neutrophils % 54.4 %; Nucleated RBC 5.3 % (0.0-0.3); Platelet Count 132 10^3/uL (130-400); RDW 15.6 % (11.7-14.6); RDW-SD 52.9 fL
[2024-03-09 09:43] LABS: ALT 14 U/L (14-59); AST 23 U/L (15-37); Albumin 3.4 g/dL (3.4-5.0); Alkaline Phosphatase 67 U/L (46-116); Anion Gap 5.3 mmol/L (3-11); BUN 30 mg/dL (7-18); CO2 31.7 mmol/L (21.0-32.0); CREATININE 1.2 mg/dL (0.55-1.02); Calcium 9.2 mg/dL (8.5-10.1); Chloride 99 mmol/L (98-107); Estimated GFR 49.92 (mL/min/1.73m2); Glucose 108 mg/dL (74-106); Sodium 136 mmol/L (136-145); Total Protein 7.4 g/dL (6.4-8.2)
[2024-03-09 09:52] LABS: Anisocytosis 1+; Diff Comment Diff Reviewed; WBC 1.14 10^3/uL (4.4-10.8)
[2024-03-09 09:53] LABS: MPV 11.5 fL (8.0-11.0); Poikilocytes 1+; Polychromasia Present
[2024-03-09] MEDS: Normal Saline Flush 10 ML SYR IVP (09:58)
== END 2024-03-12 23:59 | disposition home or self-care (01) ==
LOC: INF 01:35
PROVIDERS: PCP Family Medicine; Visit Provider Internal Medicine Hematology & Oncology
DX: D64.89 Other specified anemias; C37 Malignant neoplasm of thymus
CPT/HCPCS: 36591; 80053; 86850; 86900; 86901; 82607; 82728; 82746; 83540; 83550; 85025; 85045